=== PATIENT | female | born 1965 | race Caucasian/White ===

== ENCOUNTER 2017-07-15 10:58 | Emergency (ER) | payer OTHER ==
[2017-07-15 11:25] LABS: Absolute Lymphocytes (CBC) 2.2 K/uL (0.7-4.9); Absolute Monocytes 0.6 K/uL (0.1-1.3); Absolute Neutrophil 3.1 K/uL (1.8-8.0); Basophils % 0.7 % (0-1.3); Eosinophils % 1.5 % (0-4.4); Hematocrit 44.2 % (36.0-45.0); Lymphocytes % 36.8 % (15.3-44.8); MCH 32.4 pg (27.0-35.0); MPV 8.8 fL (7.6-11.3); Monocytes % 9.5 % (3.3-12.3)
[2017-07-15 11:29] LABS: Protime INR 0.93
[2017-07-15 11:34] LABS: Potassium 3.7 mEq/L (3.6-5.0)
[2017-07-15] MEDS ORDERED: NA CHLORIDE 0.9% 1,000 ML ONE (12:18)
--- NOTE | 2017-07-15 12:18 | RAD REPORT ---
EXAM DESCRIPTION: Von Single View07/15/2017 11:31 am CLINICAL HISTORY: Chest pain COMPARISON: none FINDINGS: The lungs appear clear of acute infiltrate. The heart is normal size IMPRESSION: No acute abnormalities displayed
[2017-07-15] MEDS ORDERED: ACETAMINOPHEN 325 MG TABLET ONE (12:36)
--- NOTE | 2017-07-15 13:15 | ER ---
Nurse's Notes [facility] Name: Deborah Garcia Age: 52 yrs Sex: Female : 1965 Arrival Date: 07/15/2017 Time: 10:59 Bed 2 Private MD: Diagnosis: Aphasia Presentation: 07/15 11:02 Presenting complaint: Patient states: Woke up this morning at approx 0750 with c/o ss increased R sided weakness and difficulty speaking. 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 Transition of care: patient was not received from another setting of care. 11:02 Method Of Arrival: Ambulatory ss 11:18 Acuity: JULIO 2 ae1 12:08 An acute neurological deficit is present. The charge nurse has been notified. The jl7 patient has been moved to a treatment area. Pre-hospital glucose is not applicable to this patient. Onset of symptoms was July 15, 2017. Care prior to arrival: None. 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/A - Post-menopause jl7 Stroke Activation: Symtpom onset >3 hours and < 6 hours Physician: Stroke Attending; Name: ; Notified At: ; Arrived At: Physician: Chief Stroke Resident; Name: ; Notified At: ; Arrived At: Physician: Stroke Resident; Name: ; Notified At: ; Arrived At: Physician: ED Attending; Name: ; Notified At: ; Arrived At: Physician: ED Resident; Name: ; Notified At: ; Arrived At: Historical: - Allergies: 11:40 No Known Allergies; ae1 - Home Meds: 13:53 divalproex 250 mg oral Tb24 [Active]; Onfi 5 mg oral tab 2 times per day [Active]; jl7 Ritalin 20 mg Oral tab 1 tab 2 times per day [Active]; lisinopril-hydrochlorothiazide 20-12.5 mg oral tab 1 tab once daily [Active]; - PMHx: 11:24 Aphasia; BRAIN TUMOR; Hypertension; R sided deficits; ss 13:53 Colitis; jl7 - PSHx: 11:24 tumor removal; ss - Immunization history:: Adult Immunizations unknown. - Family history:: not pertinent. - Social history:: Smoking status: Patient/guardian denies using tobacco. - Hospitalizations: : No recent hospitalization is reported. Screenin:30 Abuse screen: Denies threats or abuse. Denies injuries from another. Nutritional jl7 screening: No deficits noted. Tuberculosis screening: No symptoms or risk factors identified. The patient has not been NPO before screening. The patient is alert, able to follow commands. The patient exhibits slurred or garbled speech. Provider notified of indication for Speech Therapy consult. The patient is exhibiting difficulty speaking. Provider notified of indication for Speech Therapy consult. The patient does not exhibit difficulty understanding words. The patient is able to swallow own secretions with no drooling or need for suction. Patient tolerated one teaspoon of water. No drooling, immediate coughing, gurgling, or clearing of the throat was noted. The patient tolerated 90mL of water. No drooling, immediate coughing, gurgling, or clearing of the throat was noted. The patient passed the bedside swallow screening. Oral medications may be given as ordered. Contact Physician for further diet orders. Provider notified of bedside swallow screening results: Raúl Howard MD. Fall Risk Secondary diagnosis (15 points) TIA, IV access (20 points). Gait- Impaired (20 pts.). Total Wheeler Fall Scale indicates High Risk Score (45 or more points). Fall prevention measures have been instituted. Side Rails Up X 2 Placed Close to Nursing Station Frequent Obs/Assessments Occuring Family Present and informed to notify staff if the need to leave the bedside As available patient and family educated on Fall Prevention Program and Strategies. Assessment: 11:25 The patient has not been NPO before screening. The patient is alert, and able to follow jl7 commands. The patient exhibits slurred or garbled speech. Provider notified of the indication for Speech Therapy consult. The patient is exhibiting difficulty speaking. Provider notified of the indication for Speech Therapy consult. The patient does not exhibit difficulty understanding words. The patient is able to swallow own secretions with no drooling or need for suction. Patient tolerated one teaspoon of water. No drooling, immediate coughing, gurgling, or clearing of the throat was noted. The patient tolerated 90mL of water. No drooling, immediate coughing, gurgling, or clearing of the throat was noted. The patient passed the bedside swallow screening. Oral medications may be given as ordered. Contact Physician for further diet orders. Provider notified of bedside swallow screening results: Raúl Howard MD. T-PA (Activase) Screening: Contraindications: Patient reports onset of signs and symptoms of stroke greater than 6 hours ago: Yes. 11:25 General: Appears uncomfortable, Behavior is calm, cooperative, appropriate for age. jl7 Pain: Denies pain. Neuro: Level of Consciousness is awake, alert, obeys commands, Oriented to person, place, time, situation, Superintendent Overhead Distribution are equal bilaterally Moves all extremities. Gait is steady, Speech is slurred, with expressive aphasia noted, Facial symmetry appears normal, Pupils are PERRLA, Intact. Cardiovascular: Heart tones S1 S2 present Patient's skin is warm and dry. Respiratory: Airway is patent Respiratory effort is even, unlabored, Respiratory pattern is regular, symmetrical, Breath sounds are clear bilaterally. GI: No signs and/or symptoms were reported involving the gastrointestinal system. : No signs and/or symptoms were reported regarding the genitourinary system. EENT: No signs and/or symptoms were reported regarding the EENT system. Derm: Skin is pink, warm \T\ dry. Musculoskeletal: No signs and/or symptoms reported regarding the musculoskeletal system. 12:10 Reassessment: Pt c/o of a headache, rated 2/10. Provider notified, see MAR for orders. jl7 13:00 Reassessment: Patient states feeling better. Patient states symptoms have improved. jl7 13:14 Reassessment: Per , order a soft diet. Order put in through Immediately and spoke ae1 to Rosana via telephone in dietary to order diet tray as well. 14:00 Reassessment: Patient and/or family updated on plan of care and expected duration. Pain jl7 level reassessed. Patient is alert, oriented x 3, equal unlabored respirations, skin warm/dry/pink. pt sitting in bed eating, remains at bedside. Vital Signs: 11:09 BP 152 / 84; Pulse 88; Resp 22; Temp 97.7(A); Pulse Ox 100% on R/A; ae1 11:41 Weight 70.31 kg (R); Height 5 ft. 4 in. (162.56 cm); ae1 11:45 BP 134 / 74; Pulse 79; Resp 16 S; Pulse Ox 100% on R/A; jl7 12:07 BP 145 / 79; Pulse 75; Resp 16; Pulse Ox 100% on R/A; Pain 0/10; jl7 12:43 BP 139 / 84; Pulse 72; Resp 16 S; Pulse Ox 100% on R/A; jl7 13:00 BP 139 / 84; Pulse 74; Resp 16 S; Pulse Ox 100% on R/A; jl7 13:30 BP 141 / 81; Pulse 72; Resp 16 S; Pulse Ox 100% on R/A; jl7 14:15 BP 135 / 70; Pulse 82; Resp 16 S; Pulse Ox 100% on R/A; jl7 11:41 Body Mass Index 26.61 (70.31 kg, 162.56 cm) ae1 NIH Stroke Scale Scores: 11:25 NIHSS Score: 2 jl7 11:25 NIHSS Score: 2 jl7 ED Course: 10:59 Patient arrived in ED. as 11:04 Raúl Howard MD is Attending Physician. rn 11:[address] via wheelchair. em2 11:10 Inserted saline lock: 20 gauge in right antecubital area, using aseptic technique. ae1 ,using aseptic technique. By Paulino SUTURE GAUGER Blood collected. 11:10 Inserted saline lock: 20 gauge in left antecubital area, using aseptic technique. ae1 ,using aseptic technique. By Kami Estrada RN. 11:18 Triage completed. ae1 11:19 Placed in gown. Bed in low position. Side rails up X2. Adult w/ patient. Cardiac ae1 monitor on. Pulse ox on. NIBP on. Warm blanket given. 11:31 X-ray completed. Portable x-ray completed in exam room. Patient tolerated procedure ml well. 11:36 Natalie Royal RN is Primary Nurse. jl7 11:42 EKG done, by metallographic technician. reviewed by Raúl Howard MD. at1 11:53 Assisted to bedside commode. jl7 12:21 Arm band placed on right wrist. jl7 14:35 No provider procedures requiring assistance completed. Patient transferred, IV remains jl7 in place. intact, No redness/swelling at site. Administered Medications: 12:00 Drug: NS 0.9% 1000 ml Route: IV; Rate: 1000 ml; Site: right antecubital; jl7 13:00 Follow up: Response: No adverse reaction; IV Status: Completed infusion; IV Intake: jl7 1000ml 12:19 Drug: Tylenol 650 mg Route: PO; 7 13:00 Follow up: Response: No adverse reaction; Pain is decreased jl7 14:11 Drug: PlaVIX 75 mg Route: PO; 7 14:38 Follow up: Response: No adverse reaction jl7 Point of Care Testing: Blood Glucose: 11:09 Blood Glucose: 116 mg/dL; ae1 Ranges: Intake: 13:00 IV: 1000ml; Total: 1000ml. jl7 Outcome: 13:14 ER care complete, transfer ordered by rn 14:35 Transferred by ground EMS to [facility], Transfer form completed. jl7 Note: Phone report given to Nurse Kim at [facility] 14:35 Condition: stable 14:35 Discharge instructions given to patient, Instructed on the need for transfer, Demonstrated understanding of instructions. 14:47 Patient left the ED. [facility] NIH Stroke Scale - NIH Stroke Score Date: 07/15/2017 Time: 11:25 Total Score = 2 1a. Level of Consciousness (LOC) - 0(Alert) 1b. Level of Consciousness (LOC) (Year \T\ Age) - 0(Both) 1c. LOC Commands (Open \T\ Closes Eyes/Paid Intern) - 0(Both) 2. Best Gaze (Lateral Gaze Paresis) - 0(Normal) 3. Visual Field Loss - 0(No visual loss) 4. Facial Palsy - 0(Normal) 5a. Left Arm: Motor (10-second hold) - 0(No drift) 5b. Right Arm: Motor (10-second hold) - 0(No drift) 6a. Left Leg: Motor (5-second hold - always test supine) - 0(No drift) 6b. Right Leg: Motor (5-second hold - always test supine) - 0(No drift) 7. Limb Ataxia (finger/nose \T\ heel/reid - test with eyes open) - 0(Absent) 8. Sensory Loss (pinprick arms/legs/face) - 0(Normal) 9. Best Language: Aphasia (description/naming/reading) - 1(Mild to moderate aphasia) 10. Dysarthria (speech clarity - read or repeat words) - 1(Mild to Moderate) 11. Extinction and Inattention (visual/tactile/auditory/spatial/personal) - 0(No abnormality) Initials: [facility] NIH Stroke Scale - NIH Stroke Score Date: 07/15/2017 Time: 11:25 Total Score = 2 1a. Level of Consciousness (LOC) - 0(Alert) 1b. Level of Consciousness (LOC) (Year \T\ Age) - 0(Both) 1c. LOC Commands (Open \T\ Closes Eyes/Paid Intern) - 0(Both) 2. Best Gaze (Lateral Gaze Paresis) - 0(Normal) 3. Visual Field Loss - 0(No visual loss) 4. Facial Palsy - 0(Normal) 5a. Left Arm: Motor (10-second hold) - 0(No drift) 5b. Right Arm: Motor (10-second hold) - 0(No drift) 6a. Left Leg: Motor (5-second hold - always test supine) - 0(No drift) 6b. Right Leg: Motor (5-second hold - always test supine) - 0(No drift) 7. Limb Ataxia (finger/nose \T\ heel/reid - test with eyes open) - 0(Absent) 8. Sensory Loss (pinprick arms/legs/face) - 0(Normal) 9. Best Language: Aphasia (description/naming/reading) - 1(Mild to moderate aphasia) 10. Dysarthria (speech clarity - read or repeat words) - 1(Mild to Moderate) 11. Extinction and Inattention (visual/tactile/auditory/spatial/personal) - 0(No abnormality) Initials: jl7 Signatures: Ebonie Gray, Raúl Ceja MD MD rn Smirch, Shelby, RN RN ss Montes, Enrique Sujey hannah, physical education professor EKG Tat1 Jomar Bobby RN RN ae1 Natalie Royal RN RN jl7
--- NOTE | 2017-07-15 13:15 | EDPHYS ---
Physician Documentation [facility] Name: Deborah Garcia Age: 52 yrs Sex: Female : 1965 Arrival Date: 07/15/2017 Time: 10:59 Bed 2 Private MD: ED Physician Raúl Howard HPI: 07/15 11:39 This 52 yrs old Female presents to ER via Ambulatory with complaints of rn Slurred Speech, Numbness. 11:39 The patient presents to the emergency department with a speech or higher order brain rn function problem, aphasia. Onset: The symptoms/episode began/occurred this morning. Severity of symptoms: At their worst the symptoms were mild in the emergency department the symptoms are unchanged. Current symptoms: dysphasia. The patient has not experienced similar symptoms in the past. Reports slurred speech, last known normal at 0500 today, no weakness, + baseline right sided weakness following tumor removal in s, no trauma. . 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 - Family history:: not pertinent. - Social history:: Smoking status: Patient/guardian denies using tobacco. - Hospitalizations: : No recent hospitalization is reported. ROS: 11:39 Constitutional: Negative for fever, chills, and weight loss, Eyes: Negative for injury, rn pain, redness, and discharge, Neck: Negative for injury, pain, and swelling, Cardiovascular: Negative for chest pain, palpitations, and edema, Respiratory: Negative for shortness of breath, cough, wheezing, and pleuritic chest pain, Abdomen/GI: Negative for abdominal pain, nausea, vomiting, diarrhea, and constipation, Back: Negative for injury and pain, MS/Extremity: Negative for injury and deformity, Neuro: Negative for headache, numbness, tingling, and seizure. Exam: 11:39 Constitutional: This is a well developed, well nourished patient who is awake, alert, rn smiling but appears frustrated Head/Face: Normocephalic, atraumatic. Eyes: Pupils equal round and reactive to light, extra-ocular motions intact. Lids and lashes normal. Conjunctiva and sclera are non-icteric and not injected. Cornea within normal limits. Periorbital areas with no swelling, redness, or edema. Neck: Trachea midline, no thyromegaly or masses palpated, and no cervical lymphadenopathy. Supple, full range of motion without nuchal rigidity, or vertebral point tenderness. No Meningismus. Cardiovascular: Regular rate and rhythm with a normal S1 and S2. No gallops, murmurs, or rubs. Normal PMI, no JVD. No pulse deficits. Respiratory: Lungs have equal breath sounds bilaterally, clear to auscultation and percussion. No rales, rhonchi or wheezes noted. No increased work of breathing, no retractions or nasal flaring. Abdomen/GI: Soft, non-tender, with normal bowel sounds. No distension or tympany. No guarding or rebound. No evidence of tenderness throughout. MS/ Extremity: Pulses equal, no cyanosis. Neurovascular intact. Full, normal range of motion. Equal circumference. Neuro: Awake and alert, GCS 15, oriented to person, place, time, and situation. + slurred and broken speech, normal sensation in all 4 ext, no drift in Upper/lower ext. 11:42 ECG was reviewed by the Attending Physician. rn Vital Signs: 11:09 BP 152 / 84; Pulse 88; Resp 22; Temp 97.7(A); Pulse Ox 100% on R/A; ae1 11:41 Weight 70.31 kg (R); Height 5 ft. 4 in. (162.56 cm); ae1 11:45 BP 134 / 74; Pulse 79; Resp 16 S; Pulse Ox 100% on R/A; jl7 12:07 BP 145 / 79; Pulse 75; Resp 16; Pulse Ox 100% on R/A; Pain 0/10; jl7 12:43 BP 139 / 84; Pulse 72; Resp 16 S; Pulse Ox 100% on R/A; jl7 13:00 BP 139 / 84; Pulse 74; Resp 16 S; Pulse Ox 100% on R/A; jl7 13:30 BP 141 / 81; Pulse 72; Resp 16 S; Pulse Ox 100% on R/A; jl7 14:15 BP 135 / 70; Pulse 82; Resp 16 S; Pulse Ox 100% on R/A; jl7 11:41 Body Mass Index 26.61 (70.31 kg, 162.56 cm) ae1 NIH Stroke Scale Scores: 11:25 NIHSS Score: 2 jl7 11:25 NIHSS Score: 2 jl7 MDM: 11:04 Patient medically screened. rn 11:25 ED course: NIH stroke scale of 2, last known normal at 0500 today, is 6.5 hours in, out rn of window. No TPA recommended given outside of window, and abnormal ct of brain, per radiology, unable to tell if hyperdense lesion due to previous surgery vs new stroke vs calcification.. 13:13 Data reviewed: vital signs, nurses notes, lab test result(s), EKG, radiologic studies, rn CT scan, and as a result, I will admit patient. Counseling: I had a detailed discussion with the patient and/or guardian regarding: the historical points, exam findings, and any diagnostic results supporting the discharge/admit diagnosis, lab results, radiology results, the need to transfer to another facility, for higher level of care, [facility] does not immediately have the required specialist. 13:13 ED course: Symptoms slightly improved. . rn 13:13 ED course: Pt took 2 baby aspirin today already.. rn 07/15 11:05 Order name: Basic Metabolic Panel rn 07/15 11:05 Order name: CBC with Diff rn 07/15 11:05 Order name: Protime (+inr) rn 07/15 11:05 Order name: Ptt, Activated rn 07/15 11:05 Order name: Urine Microscopic Only rn 07/15 11:34 Order name: Basic Metabolic Panel; Complete Time: 11:38 EDMS 07/15 11:05 Order name: CT Stroke Brain w/o Contrast rn 07/15 11:05 Order name: Stroke CXR 1 View rn 07/15 11:38 Order name: CBC with Automated Diff; Complete Time: 11:38 EDMS 07/15 11:38 Order name: Protime (+INR); Complete Time: 11:55 EDMS 07/15 11:38 Order name: PTT, Activated Partial Thromb; Complete Time: 11:55 EDMS 07/15 12:19 Order name: RAD; Complete Time: 12:42 EDMS 07/15 13:19 Order name: CT; Complete Time: 13:34 EDMS 07/15 11:05 Order name: EKG; Complete Time: 11:06 rn 07/15 11:05 Order name: Accucheck; Complete Time: 11: rn 07/15 11:05 Order name: Cardiac monitoring; Complete Time: 11: rn 07/15 11:05 Order name: EKG - Nurse/Tech; Complete Time: 11: rn 07/15 11:05 Order name: IV Saline Lock; Complete Time: : rn 07/15 11:05 Order name: Labs collected and sent; Complete Time: : rn 07/15 11:05 Order name: NPO; Complete Time: : rn 07/15 11:05 Order name: O2 Per Protocol; Complete Time: : rn 07/15 11:05 Order name: O2 Sat Monitoring; Complete Time: : rn 07/15 11:05 Order name: Stroke Swallow Screen; Complete Time: 11:42 rn 07/15 13:13 Order name: Diet Mech. Soft (ground); Complete Time: 13:14 ae1 EC:42 Rate is 82 beats/min. Rhythm is regular. QRS [place] is Normal. MI interval is normal. QRS rn interval is normal. QT interval is normal. No Q waves. T waves are Normal. No ST changes noted. Clinical impression: Normal ECG. Interpreted by me. Administered Medications: 12:00 Drug: NS 0.9% 1000 ml Route: IV; Rate: 1000 ml; Site: right antecubital; jl7 13:00 Follow up: Response: No adverse reaction; IV Status: Completed infusion; IV Intake: jl7 1000ml 12:19 Drug: Tylenol 650 mg Route: PO; jl7 13:00 Follow up: Response: No adverse reaction; Pain is decreased jl7 14:11 Drug: PlaVIX 75 mg Route: PO; jl7 14:38 Follow up: Response: No adverse reaction jl7 Point of Care Testing: Blood Glucose: 11:09 Blood Glucose: 116 mg/dL; ae1 Ranges: Critical Glucose Levels:Adult <50 mg/dl or >400 mg/dl <40 mg/dl or >180 mg/dl Disposition: 07/15/17 13:14 Transfer ordered to [facility]. Diagnosis is Aphasia. - Reason for transfer: Higher level of care. - Accepting physician is Dr. Hudson. - Condition is Stable. - Problem is new. - Symptoms have improved. NIH Stroke Scale - NIH Stroke Score Date: 07/15/2017 Time: :25 Total Score = 2 1a. Level of Consciousness (LOC) - 0(Alert) 1b. Level of Consciousness (LOC) (Year \T\ Age) - 0(Both) 1c. LOC Commands (Open \T\ Closes Eyes/Chemicals Fermentation Operator) - 0(Both) 2. Best Gaze (Lateral Gaze Paresis) - 0(Normal) 3. Visual Field Loss - 0(No visual loss) 4. Facial Palsy - 0(Normal) 5a. Left Arm: Motor (10-second hold) - 0(No drift) 5b. Right Arm: Motor (10-second hold) - 0(No drift) 6a. Left Leg: Motor (5-second hold - always test supine) - 0(No drift) 6b. Right Leg: Motor (5-second hold - always test supine) - 0(No drift) 7. Limb Ataxia (finger/nose \T\ heel/reid - test with eyes open) - 0(Absent) 8. Sensory Loss (pinprick arms/legs/face) - 0(Normal) 9. Best Language: Aphasia (description/naming/reading) - 1(Mild to moderate aphasia) 10. Dysarthria (speech clarity - read or repeat words) - 1(Mild to Moderate) 11. Extinction and Inattention (visual/tactile/auditory/spatial/personal) - 0(No abnormality) Initials: jl7 NIH Stroke Scale - NIH Stroke Score Date: 07/15/2017 Time: 25 Total Score = 2 1a. Level of Consciousness (LOC) - 0(Alert) 1b. Level of Consciousness (LOC) (Year \T\ Age) - 0(Both) 1c. LOC Commands (Open \T\ Closes Eyes/Chemicals Fermentation Operator) - 0(Both) 2. Best Gaze (Lateral Gaze Paresis) - 0(Normal) 3. Visual Field Loss - 0(No visual loss) 4. Facial Palsy - 0(Normal) 5a. Left Arm: Motor (10-second hold) - 0(No drift) 5b. Right Arm: Motor (10-second hold) - 0(No drift) 6a. Left Leg: Motor (5-second hold - always test supine) - 0(No drift) 6b. Right Leg: Motor (5-second hold - always test supine) - 0(No drift) 7. Limb Ataxia (finger/nose \T\ heel/reid - test with eyes open) - 0(Absent) 8. Sensory Loss (pinprick arms/legs/face) - 0(Normal) 9. Best Language: Aphasia (description/naming/reading) - 1(Mild to moderate aphasia) 10. Dysarthria (speech clarity - read or repeat words) - 1(Mild to Moderate) 11. Extinction and Inattention (visual/tactile/auditory/spatial/personal) - 0(No abnormality) Initials: jl7 Signatures: Dispatcher [employer] EDRaúl Bush MD MD rn Smirch, Shelby, RN RN ss Jomar Bobby RN RN ae1 Natlaie Royal RN RN jl7
--- NOTE | 2017-07-15 13:18 | RAD REPORT ---
EXAM DESCRIPTION: CT - Ct Stroke Brain Wo Cont - 07/15/2017 11:11 am CLINICAL HISTORY: Slurred speech, weakness, stroke protocol study Patient has a history of tumor and/or CVA with surgical resection CLINICAL HISTORY: MRI November 2015 TECHNIQUE: Axial 5 millimeter thick images of the head were obtained without IV contrast. All CT scans are performed using dose optimization technique as appropriate and may include automated exposure control or mA/KV adjustment according to patient size. FINDINGS: No intracranial hemorrhage is present. No cortical edema or sulcal effacement. In the late ral left frontal lobe there is an 8 millimeter round hyperdense focus present. Patient has a broader area of encephalomalacia involving much of the left frontal lobe. A left lateral ventricle has enlarg ed in proportion to the encephalomalacia. There are postsurgical changes to the left frontal bone of the skull. An acute cortical based infarction is not identified. It would be possible for nonhemorrha gic CVA changes to occur within this area of encephalomalacia. New the patient has underlying atrophy and mild chronic ischemic change could mask nonhemorrhagic CVA as well. The small round hyperdense focus is not suspected to be cortical hemorrhage, contusion or a hat or de nse metastasis. The 2016 MRI study shows a small hypointense focus on all pulse sequences. This is be lieved to be a correlate and probably represents an unusual postsurgical or post injury mineralizatio n. No extra-axial fluid collections. Rodriguez matter-white matter differentiation is otherwise preserved . Visualized portions of the mastoid air cells, paranasal sinuses, and orbits are unremarkable. Findings were telephoned to Dr. Howard at 11:16 a.m. IMPRESSION: No acute intracranial hemorrhage and no acute intracranial process seen. The patient has postsurgical changes to the left frontal bone and underlying post CVA or postsurgical encephalomalacia. The left frontal lobe changes as well as the mild diffuse atrophy and chronic isch emic change could mask nonhemorrhagic infarction. The small round hyperdense focus in the left frontal lobe at the posterior margin of the encephalomal acia is believed to be mineralization and not hemorrhage or hyperdense metastasis. Followup MR imaging could be obtained as warranted to evaluate for active process.
--- NOTE | 2017-07-15 14:04 | EKG ---
Test Date: 2017-07-15 Test Time: 11:28:23 Research Manager: LORELEI MEASUREMENT RESULTS: Intervals: Rate: 82 SD: 142 QRSD: 68 QT: 350 QTc: 408 [place]: P: 48 SD: 142 QRS: 34 T: 53 INTERPRETIVE STATEMENTS: Normal sinus rhythm Normal ECG Compared to ECG 04/19/2003 15:33:00 No significant changes Electronically Signed On 07-15-17 14:03:43 CDT by Ruslan Lynch
[2017-07-15] MEDS ORDERED: CLOPIDOGREL 75 MG TABLET ONE (14:30)
== END 2017-07-15 14:47 | disposition short-term general hospital (02) ==
LOC: ER 10:58
DX: R47.01 Aphasia (principal); I10 Essential (primary) hypertension; D49.6 Neoplasm of unspecified behavior of brain
CPT/HCPCS: 36415; 70450; 71045; 80048; 82962; 85025; 85610; 85730; 93005; 96360; 99285; J7030

== ENCOUNTER 2020-01-03 11:51 | Emergency (ER) | payer OTHER ==
--- OUTSIDE RECORDS SUMMARY | 2020-01-03 11:53 | XMS REPORT | Summary of Care ---
:1965 Author Organization [facility] - [facility] Address [address] [place] [address] Care Team Providers Name Role Phone Pcp, Patient Does Not Have A Primary Care Provider +[id number] 0-0000 Encounter Details Date Type Department Care Team Description 10/05/2019 Orders Only [facility] Doctor Unassigned, No 301 [facility] [place] [address] [address] [place] [address] Allergies No Known Allergiesdocumented as of this encounter (statuses as of 10/18/2019) Medications Medication Sig Dispensed Refills Start Date End Date Status ibuprofen (MOTRIN) 400 Take 1 tablet 21 tablet 0 01/11/2016 Active mg tablet by mouth 3 (three) times daily with meals. cyclobenzaprine Take 1 tablet 15 tablet 0 01/11/2016 Active (FLEXERIL) 5 mg tablet by mouth 3 (three) times daily. ciprofloxacin HCl Take 1 tablet 14 tablet 0 01/11/2016 Active (CIPRO) 250 mg tablet by mouth 2 (two) times daily. aspirin 81 mg chewable Take 81 mg by 0 Active tablet mouth. lisinopril 20 mg tablet 0 10/15/2017 Active metoprolol tartrate 25 Take 25 mg by 0 Active mg tablet mouth. multivitamin tablet Take 1 tablet 0 Active by mouth. cloBAZam (ONFI) 10 mg Take 1 tablet 180 tablet 3 06/28/2019 Active TabIndications: Seizure, by mouth 2 Broca's aphasia (two) times daily. divalproex ER 500 mg 24 Take 1 tablet 60 tablet 6 07/19/2019 Active hr tabletIndications: by mouth every Seizure, Broca's aphasia 12 (twelve) hours. 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 documented as of this encounter Last Filed Vital Signs Not on filedocumented in this encounter Plan of Treatment Date Type Specialty Care Team Description 12/27/2019 Office Visit Neurology Sergey Lentz MD [address] [place] [address]. [place] [phone] Health Maintenance Due Date Last Done Comments HEPATITIS C (HCV) SCREEN 1965 DTaP,Tdap,and Td Vaccines (1 - 01/23/1976 Tdap) PAP SMEAR 1986 Breast Cancer Screening 2005 (MAMMOGRAM) COLONOSCOPY 2015 Zoster Recombinant Vaccine 2015 (SHINGRIX) (1 of 2) INFLUENZA VACCINE (Season Ended) 2019 Depression Screening 06/27/2020 06/28/2019 PNEUMOCOCCAL 0-64 YEARS COMBINED Aged Out No longer eligible based on SERIES patient's age to complete this topic documented as of this encounter Procedures Procedure Name Priority Date/Time Associated Diagnosis Comme nts CONSENT FOR CONTRACEPTION Routine 10/05/2019 12:01 AM CDT documented in this encounter Results Not on filedocumented in this encounter Insurance Payer Benefit Plan / Subscriber ID Effective Dates Phone Addre ss Type Group MEDICARE MEDICARE PART A xxxxxxxxxxx 1995-[place] [phone] [address] Medicare & B nt 2 [id number] FR[place] [address] [employer] [id number] 2015-[place] PPO INS t documented as of this encounter
--- OUTSIDE RECORDS SUMMARY | 2020-01-03 11:53 | XMS REPORT | Summary of Care ---
:1965 Author Organization [facility] - [facility] Address [address] [place] [address] Care Team Providers Name Role Phone Pcp, Patient Does Not Have A Primary Care Provider +[phone] 0-0000 Encounter Details Date Type Department Care Team Description 11/16/2019 Orders Only [facility] Doctor Unassigned, No 301 [facility] Name [place] [phone] [place] [address] Allergies No Known Allergiesdocumented as of this encounter (statuses as of 11/18/2019) Medications Medication Sig Dispensed Refills Start Date [...] as of this encounter (statuses as of 11/18/2019) Active Problems No known active problemsdocumented as of this encounter (statuses as of 11/18/2019) Social History Tobacco Use Types Packs/Day Years [...] 12/27/2019 Office Visit Neurology Sergey Lentz MD [address] [place] [address]. [place] [phone] Health Maintenance Due Date Last Done Comments HEPATITIS C (HCV) SCREEN 1965 DTaP,Tdap,and Td Vaccines (1 - 01/23/1976 Tdap) PAP SMEAR 1986 Breast Cancer Screening 2005 (MAMMOGRAM) COLONOSCOPY 2015 Zoster Recombinant Vaccine 2015 (SHINGRIX) (1 of 2) INFLUENZA VACCINE (#1) 2019 Depression Screening 06/27/2020 06/28/2019 PNEUMOCOCCAL 0-64 YEARS COMBINED Aged Out No longer eligible based on SERIES patient's age to complete this topic documented as of this encounter Procedures Procedure Name Priority Date/Time Associated Diagnosis Comme nts CONTROLLED SUBSTANCE Routine 11/16/2019 12:01 AM PRESCRIPTION CDT documented in this encounter Results Not on filedocumented in this encounter Insurance Payer Benefit Plan / Subscriber ID Effective Dates Phone Addre ss Type Group MEDICARE MEDICARE PART A xxxxxxxxxxx 1995-[place] [phone] [address] Medicare & B nt 2 [id number] [place] [phone] [employer] [id number] 2015-[place] PPO INS t documented as of this encounter
--- OUTSIDE RECORDS SUMMARY | 2020-01-03 11:53 | XMS REPORT | Continuity of Care Document ---
:1965 Author Organization [facility] t Address [address] [place] [address] Care Team Providers Name Role Phone John Canada MD Primary Care Physician Doctor Unassigned, Name Attending Clinician Unavailable Tor LUTZ, Gene Attending Clinician JORI KC Attending Clinician Unavailable JORI KC Admitting Clinician Unavailable Problems Condition Condition Condition Status Onset Resolution Last Treating Co mments Source Name Details Category Date Date Treatment Clinician Date Seizure Seizure Disease [facility] 00 [place] Acute Acute Disease Active [facility] cystitis [facility]stit[facility] 00 [place] Weakness Weakness Disease [facility] 00 [place] CVA CVA Disease Active [facility] (cerebral (cerebral [facility]-20 [facility] - vascular vascular 00:00: Medica l accident) accident) 00 [facility] Aphasia Aphasia Disease Active [facility] 00 [place] Physical Physical Disease Active [facility] deconditio deconditio 3-20 Samia kes - daksha daksha 00:00: Medical 00 [place] Dysarthria Dysarthria Disease Active [facility] Medical 00 [place] Hypertensi Hypertensi Disease Active [facility] on 3-[facility] - 00:[facility]: Medical 00 [place] Allergies, Adverse Reactions, Alerts This patient has no known allergies or adverse reactions. Social History Social Habit Start Date Stop Date Quantity Comments Source History of tobacco Current smoker [facility] Sex Assigned At [facility] Smoking Status Start Date Stop Date Source Former smoker 2017-07-15 00:00:00 2017-07-15 00:00:00 [facility] Medications Ordered Filled Start Stop Current Ordering Indication Dosage Frequency Signature Comments Components Source Medication Medication Date Date Medication? Clinician (SIG) Name Name multivitami Yes 1{tbl} QD Take [address] n per 3-20 tablet by Song - tablet 16:54: mouth Medical 59 daily. [place] GLUCOSAM/CH Yes 2{tbl} QD Take [address] OND/HYALU/C 3-20 tablets by Samia alexander - F BORATE 16:54: mouth Medical (MOVE FREE 59 daily. [place] JOINT HEALTH ORAL) DOCOSAHEXAN Yes 1{capsu QD Take [address] OIC 3-20 le} capsule by Song ACID/EPA 16:54: mouth Medical (FISH OIL 59 daily. [place] ORAL) Missing or Yes 1{tbl} QD [address] Non-Formula 3-20 daily. Song - ry 16:54: Medical Medication 59 Center divalproex Yes 250mg Take [address] (DEPAKOTE) 3-20 mg by Song - 250 MG 24 16:54: mouth 2 Medic al hr tablet 58 (two) Center times daily with breakfast and dinner. CLOBAZAM 2018-0 Yes 5mg Q.5D Take [address] (ONFI ORAL) 3-20 by mouth 2 Samia kes - 16:54: (two) Medical 58 times Center daily. methylpheni 2018-0 Yes 20mg Take [address] date HCl 3-20 by mouth 2 [facility] - (RITALIN) 16:54: (two) Medical 20 MG 58 times Center tablet daily with breakfast and lunch. lisinopril- 2017-0 Yes 1{tbl} Take [address] hydroCHLORO 3-20 tablet by Malina es - thiazide 16:54: mouth Medical (PRINZIDE,Z 58 daily with Ce nter ESTORETIC) breakfast. 20-12.5 mg per tablet metoprolol 2018-0 Yes 25mg Q.5D Take [address] (LOPRESSOR) 3-20 by mouth 2 Samia kes - 25 MG 16:54: (two) Medical tablet 58 times Center daily. aspirin 81 2018-0 Yes 81mg Q.5D Take [address] MG chewable 3-20 by mouth 2 Samia kes - tablet 16:54: (two) Medical 58 times Center daily. Procedures This patient has no known procedures. Encounters Start End Encounter Admission Attending Care Care Encounter Source Date/Time Date/Time Type Type Clinicians Facility Department ID 2018-08-27 Inpatient [facility] [address] [facility] 08:45:00 2019-12-27 2019-12-27 Orders Doctor SIDNEY [id number] 00:00:00 00:00:00 Only Unassigned, REAL [id number] [place] [facility] [id number] 2019-11-30 2019-11-[address] [facility] [id number] 14:14:45 14:49:08 Visit Sergey Walker [id number] [place] [id number] [place] [id number] [facility] 092 Building 2018-12-30 2018-12-30 Outpatient [facility] [address] [facility] 15:06:00 15:06:00 Results Test Description Test Time Test Comments Results Result Comments Source URINE CULTURE 2017-07-21 10:39:00 Test Item Value Reference Range Interpretation Comme nts CULTURE (BEAKER) (test code = ESCHERICHIA COLI A >100,000 col/mL Escherichia 1095) coli Amikacin (test code = 1) S Ampicillin + Sulbactam (test R code = 6) Aztreonam (test code = 32) S Cefepime (test code = 51) S Cefoxitin (test code = 68) S Ceftazidime (test code = 27) S Ceftriaxone (test code = 52) S Ertapenem (test code = 38) S Gentamicin (test code = 18) S Levofloxacin (test code = 22) S Meropenem (test code = 34) S Nitrofurantoin (test code = 23) S Piperacillin + Tazobactam (test S code = 29) Tetracycline (test code = 2) R Tobramycin (test code = 25) S Trimethoprim + Sulfamethoxazole S (test code = 47) CULTURE (BEAKER) (test code = ENTEROCOCCUS SPECIES A >100,000 col/mL Enterococcus 1095) species Ampicillin (test code = 26) S Linezolid (test code = 40) S Nitrofurantoin (test code = 23) S Tetracycline (test code = 2) R Vancomycin (test code = 13) S >100,000 col/mL skin floraURINALYSIS W/ [id number] 09:01:00 Test Item Value Reference Range Interpretation Comments COLOR (BEAKER) (test code = Light Yellow 470) CLARITY (BEAKER) (test code = Hazy 469) SPECIFIC GRAVITY UA (BEAKER) 1.011 1.001-1.035 (test code = 468) PH UA (BEAKER) (test code = 7.0 5.0-8.0 467) PROTEIN UA (BEAKER) (test code Negative Negative = 464) GLUCOSE UA (BEAKER) (test code Negative Negative = 365) KETONES UA (BEAKER) (test code Negative Negative = 371) BILIRUBIN UA (BEAKER) (test Negative Negative code = 462) BLOOD UA (BEAKER) (test code = Negative Negative 461) NITRITE UA (BEAKER) (test code Negative Negative = 465) LEUKOCYTE ESTERASE UA (BEAKER) Trace Negative A (test code = 466) UROBILINOGEN UA (BEAKER) (test 0.2 mg/dL 0.2-1.0 code = 463) RBC UA (BEAKER) (test code = 0 /HPF 519) WBC UA (BEAKER) (test code = 10 /HPF 520) BACTERIA (BEAKER) (test code = Few 517) MUCUS (BEAKER) (test code = Rare 1574) SOURCE(BEAKER) (test code = Urine, Voided 1785) URINE [id number] 05:37:00 Test Item Value Reference Range Interpretation Comments CULTURE (BEAKER) (test code = See comment 1095) <10,000 col/mL Gram Negative Rods>100,000 col/mL skin floraRAD, CHEST, 1 VIEW, NON [id number] 22:36:00Reason for exam:->Evaluate for infectionShould this be performed at the bedside?->YesFINAL REPORT INDICATION: Evaluate for infection COMPARISON: None TECHNIQUE: Si ngle frontal view of the chest. FINDINGS: Lungs and pleura: Clear lungs. No effusion.Heart and mediastinum: Normal heart size. Unremarkable mediastinal contours.Osseous structures: No acute abnormality.Other: None. IMPRESSION: No acute intrathoracic abnormality. Signed: JR Rowland Robert MDReport Verified Date/Time: 07/16/2017 22:36:35 Reading Location: [address] Body Reading Room MR, MRA, BRAIN, WITHOUT [id number] 21:33:00Reason for exam:->StrokeFINAL REPORT MRA head and neck Comparison: None Reason for exam: StrokeDiscussion: 2 D and 3-D rslc-ay-[id number] MRA of the head and neck was provided with maximal intensity p rojection 3-D reconstructions of the cervical and intracranial arterial vasculatures. NASCET criteria are utilized when considering stenosis. Normal flow cervical carotid systems and cervical segment vertebral arteries with no stenosis by NASCET criteria. Normal flow intracranial internal carotid arteries and in the carotid terminus branches proximally. Normal vertebrobasilar and proximal posterior cerebral artery flow. Impressions: Negative MRA neck and head. Signed: Sidney Hastings Verified Date/Time: 07/16/2017 21:33:30 MR, MRA, NECK, WITHOUT IV [id number] 21:33:00Reason for exam:->StrokeFINAL REPORT MRA head and neck Comparison: None Reason for exam: StrokeDiscussion: 2 D and 3-D xgro-vc-iqbfhj MRA of the head and neck was provided with maximal intensity projection 3-D reconstructions of the cervical and intracranial arterial vasculatures. NASCET criteria are utilized when considering stenosis. Normal flow cervical carotid systems and cervical segment vertebral arteries with no stenosis by NASCET criteria. Normal flow intracranial internal carotid arteries and in the carotid terminus branches proximally. Normal vertebrobasilar and proximal posterior cerebral artery flow. Impressions: Negative MRA neck and head. 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 Left frontal craniotomy ila nges are noted. There is a large left-sided anterior and high frontal surgical cavity with surrounding gliosis and regional parenchymal atrophy. There are speckled foci of enhancement along the [place] posterior aspect of the operated region. An additional presumed hemosiderin focus measuring appro ximately 1 cm with some internal enhancement is seen along the mid aspect of the left-sided precentral gyrus. 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 There is no dominant masslike lesion. The current speckled enhancement is nonspecific and may be posttreatment in nature. No acute hematoma, hydrocephalus, midline shift, extra-axial collection. No other visible mass. No ischemic abnormal diffusion restriction. Flow-voids are seen in the basilar and internal carotid arteries as well as in the large posterior dural sinuses. The pineal, sella, and craniocervical junction regions are unremarkable. The visualized orbital contents, paranasal sinuses, skullbase and surrounding soft tissues are unremarkable. 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 Without comparison imaging, this will be a baseline to which future imaging can be compared. Recommend serial MRI follow-up to evaluate stability. No specific evidence of acute abnormality. Signed: Sidney Hastings Verified Date/Time: 07/16/2017 21:23:01 URINALYSIS W/ [id number] 19:13:00 Test Item Value Reference Range Interpretation Comments COLOR (BEAKER) (test code = Light Yellow 470) CLARITY (BEAKER) (test code = Clear 469) SPECIFIC GRAVITY UA (BEAKER) 1.011 1.001-1.035 (test code = 468) PH UA (BEAKER) (test code = 7.0 5.0-8.0 467) PROTEIN UA (BEAKER) (test code Negative Negative = 464) GLUCOSE UA (BEAKER) (test code Negative Negative = 365) KETONES UA (BEAKER) (test code Negative Negative = 371) BILIRUBIN UA (BEAKER) (test Negative Negative code = 462) BLOOD UA (BEAKER) (test code = Negative Negative 461) NITRITE UA (BEAKER) (test code Negative Negative = 465) LEUKOCYTE ESTERASE UA (BEAKER) Small Negative A (test code = 466) UROBILINOGEN UA (BEAKER) (test 0.2 mg/dL 0.2-1.0 code = 463) RBC UA (BEAKER) (test code = 1 /HPF 519) WBC UA (BEAKER) (test code = 17 /HPF 520) MUCUS (BEAKER) (test code = Rare 1574) SQUAMOUS EPITHELIAL (BEAKER) < /HPF (test code = 516) SOURCE(BEAKER) (test code = Urine, Voided 1105) HEMOGLOBIN [id number] 14:29:00 Test Item Value Reference Range Interpretation Comments HEMOGLOBIN A1C (BEAKER) (test code = 5.4 % 4.3-6.1 368) VALPROIC ACID LEVEL, [id number] 12:47:00 Test Item Value Reference Range Interpretation Comments VALPROIC ACID TOTAL (BEAKER) (test 71 ug/mL 50-100 code = 924) Therapeutic range for some clinical conditions may be >100 ug/mLLIPID PANEL 2017-07-16 06:17:00 Test Item Value Reference Range Interpretation Comments TRIGLYCERIDES (BEAKER) (test code = 95 mg/dL 540) CHOLESTEROL (BEAKER) (test code = 169 mg/dL 631) HDL CHOLESTEROL (BEAKER) (test code 52 mg/dL = 976) LDL CHOLESTEROL CALCULATED (BEAKER) 98 mg/dL (test code = 633) Triglyceride Reference Range: Low Risk <150 Borderline 150-199 High Risk 200-499 Very High Risk >=500Cholesterol Reference Range: Low Risk <200 Borderline 200-239 High Risk >240HDL Cholesterol Reference Range: Low Risk >=60 High Risk <40LDL Cholesterol Reference Range: Optimal <100 Near Optimal 100-129 Borderline 130-159 High 160-189 Very High >=190 FastingBASIC METABOLIC [id number] 02:44:00 Test Item Value Reference Range Interpretation Comments SODIUM (BEAKER) 142 meq/L 136-145 (test code = 381) POTASSIUM (BEAKER) 3.9 meq/L 3.5-5.1 (test code = 379) CHLORIDE (BEAKER) 108 meq/L 98-107 H (test code = 382) CO2 (BEAKER) (test 23 meq/L 22-29 code = 355) BLOOD UREA NITROGEN 20 mg/dL 7-21 (BEAKER) (test code = 354) CREATININE (BEAKER) 0.73 mg/dL 0.57-1.25 (test code = 358) GLUCOSE RANDOM 118 mg/dL 70-105 H (BEAKER) (test code = 652) CALCIUM (BEAKER) 9.5 mg/dL 8.4-10.2 (test code = 697) EGFR (BEAKER) (test 84 mL/min/1.73 ESTIMA RANDY GFR IS code = 1092) sq m NOT ACCURATE CREATININE CLEARANCE IN PREDICTING GLOMERULAR FILTRATION RATE . ESTIMATED GFR I S NOT APPLICABLE FOR DIALYSIS PATIEN TS. CBC W/PLT COUNT & AUTO [id number] 02:30:00 Test Item Value Reference Range Interpretation Comments WHITE BLOOD CELL COUNT (BEAKER) 7.6 K/ L 3.5-10.5 (test code = 775) RED BLOOD CELL COUNT (BEAKER) 4.33 M/ L 3.93-5.22 (test code = 761) HEMOGLOBIN (BEAKER) (test code = 13.9 GM/DL 11.2-15.7 410) HEMATOCRIT (BEAKER) (test code = 40.8 % 34.1-44.9 411) MEAN CORPUSCULAR VOLUME (BEAKER) 94.2 fL 79.4-94.8 (test code = 753) MEAN CORPUSCULAR HEMOGLOBIN 32.1 pg 25.6-32.2 (BEAKER) (test code = 751) MEAN CORPUSCULAR HEMOGLOBIN CONC 34.1 GM/DL 32.2-35.5 (BEAKER) (test code = 752) RED CELL DISTRIBUTION WIDTH 12.0 % 11.7-14.4 (BEAKER) (test code = 412) PLATELET COUNT (BEAKER) (test 205 K/CU MM 150-450 code = 756) MEAN PLATELET VOLUME (BEAKER) 10.9 fL 9.4-12.3 (test code = 754) NUCLEATED RED BLOOD CELLS 0 /100 WBC 0-0 (BEAKER) (test code = 413) NEUTROPHILS RELATIVE PERCENT 51 % (BEAKER) (test code = 429) LYMPHOCYTES RELATIVE PERCENT 38 % (BEAKER) (test code = 430) MONOCYTES RELATIVE PERCENT 9 % (BEAKER) (test code = 431) EOSINOPHILS RELATIVE PERCENT 2 % (BEAKER) (test code = 432) BASOPHILS RELATIVE PERCENT 0 % (BEAKER) (test code = 437) NEUTROPHILS ABSOLUTE COUNT 3.84 K/ L 1.56-6.13 (BEAKER) (test code = 670) LYMPHOCYTES ABSOLUTE COUNT 2.91 K/ L 1.18-3.74 (BEAKER) (test code = 414) MONOCYTES ABSOLUTE COUNT (BEAKER) 0.65 K/ L 0.24-0.36 H (test code = 415) EOSINOPHILS ABSOLUTE COUNT 0.14 K/ L 0.04-0.36 (BEAKER) (test code = 416) BASOPHILS ABSOLUTE COUNT (BEAKER) 0.03 K/ L 0.01-0.08 (test code = 417) IMMATURE GRANULOCYTES-RELATIVE 0 % 0-1 PERCENT (BEAKER) (test code = 2801) SEDIMENTATION [id number] 22:54:00 Test Item Value Reference Range Interpretation Comments SEDIMENTATION RATE, ERYTHROCYTE 9 mm/HR 0-30 (BEAKER) (test code = 766) LIPID [id number] 21:50:00 Test Item Value Reference Range Interpretation Comments TRIGLYCERIDES (BEAKER) (test code = 130 mg/dL 540) CHOLESTEROL (BEAKER) (test code = 176 mg/dL 631) HDL CHOLESTEROL (BEAKER) (test code 53 mg/dL = 976) LDL CHOLESTEROL CALCULATED (BEAKER) 97 mg/dL (test code = 633) Triglyceride Reference Range: Low Risk <150 Borderline 150-199 High Risk 200-499 Very High Risk >=500Cholesterol Reference Range: Low Risk <200 Borderline 200-239 High Risk >240HDL Cholesterol Reference Range: Low Risk >=60 High Risk <40LDL Cholesterol Reference Range: Optimal <100 Near Optimal 100-129 Borderline 130-159 High 160-189 Very High >=190VITAMIN B12 AND [id number] 20:18:00 Test Item Value Reference Range Interpretation Comments VITAMIN B12 (payworks) (test code = 580 pg/mL [id number] 934) FOLATE (payworks) (test code = 362) 11.5 ng/mL >=7.0 TSH/FREE T4 IF [id number] 20:17:00 Test Item Value Reference Range Interpretation Comments THYROID STIMULATING HORMONE 1.88 uIU/mL 0.35-4.94 (payworks) (test code = 772)
--- OUTSIDE RECORDS SUMMARY | 2020-01-03 11:53 | XMS REPORT | Summary of Care ---
:1965 Author Organization [facility] - [facility] Address [address] [place] [address] Care Team Providers Name Role Phone Pcp, Patient Does Not Have A Primary Care Provider +1-000-00 0-0000 Encounter Details Date Type Department Care Team Description 08/13/2019 Orders Only [facility] Doctor Unassigned, No 301 [facility] [place] [address] [address] [place] [address] Allergies No Known Allergiesdocumented as of this [...] every Seizure, Broca's aphasia 12 (twelve) hours. documented as of this encounter (statuses as [...] 12/27/2019 Office Visit Neurology Sergey Lentz MD [address] [place] [address] [phone] Health Maintenance Due Date Last Done [...] Name Priority Date/Time Associated Diagnosis Comme nts MEDICATION CORRESPONDENCE Routine 08/13/2019 12:01 AM CDT documented in this encounter Results Not on filedocumented in this encounter Insurance Payer Benefit Plan / Subscriber ID Effective Dates Phone Addre ss Type Group MEDICARE MEDICARE PART A xxxxxxxxxxx 1995-[place] [phone] [address] Medicare & B nt 2 [id number] [place] [id number] [employer] [id number] 2015-[place] PPO INS t documented as of this encounter
--- OUTSIDE RECORDS SUMMARY | 2020-01-03 11:53 | XMS REPORT | Clinical Summary ---
:1965 Author Organization [facility] Address [address] [place] [address] Care Team Providers Name Role Phone John Canada MD Primary Care Provider Allergies No Known Allergies Medications Medication Sig Dispensed Refills Start Date End Date Status divalproex (DEPAKOTE) Take 250 mg by 0 Active 250 MG 24 hr tablet mouth 2 (two) times daily with breakfast and dinner. CLOBAZAM (ONFI ORAL) Take 5 mg by 0 Active mouth 2 (two) times daily. methylphenidate HCl Take 20 mg by 0 Active (RITALIN) 20 MG tablet mouth 2 (two) times daily with breakfast and lunch. lisinopril-hydroCHLOROt Take 1 tablet by 0 Active hiazide mouth daily with (PRINZIDE,ZESTORETIC) breakfast. 20-12.5 mg per tablet metoprolol (LOPRESSOR) Take 25 mg by 0 Active 25 MG tablet mouth 2 (two) times daily. aspirin 81 MG chewable Take 81 mg by 0 Active tablet mouth 2 (two) times daily. multivitamin per tablet Take 1 tablet by 0 Active mouth daily. GLUCOSAM/CHOND/HYALU/CF Take 2 tablets by 0 Active BORATE (MOVE FREE JOINT mouth daily. HEALTH ORAL) DOCOSAHEXANOIC ACID/EPA Take 1 capsule by 0 Active (FISH OIL ORAL) mouth daily. Missing or 1 tablet daily. 0 Act tomy Non-Formulary MedicationIndications: Calcium tablet Active Problems Problem Noted Date Seizure 07/21/2017 Acute cystitis 07/21/2017 Weakness 07/16/2017 CVA (cerebral vascular accident) 07/15/2017 Aphasia 07/15/2017 Physical deconditioning 07/15/2017 Dysarthria 07/15/2017 Hypertension 07/15/2017 Social History Tobacco Use Types Packs/Day Years Used Date Former Smoker Quit: 1991 Smokeless Tobacco: Never Used Alcohol Use Drinks/Week oz/Week Comments No Sex Assigned at Date Recorded Not on file Job Start Date Occupation Industry Not on file Not on file Not on file Travel History Travel Start Travel End No recent travel history available. Last Filed Vital Signs Not on file Plan of Treatment Not on file Results Not on fileafter 01/02/2019 Insurance Payer Benefit Plan / Group Subscriber ID Type Phone A ddress MEDICARE MEDICARE A B xxxxxxxxxx Medicare MCR GENERIC MEDICARE xxxxxxxxxxx Medigap SUPPLEMENT/INDIVIDUAL SUPPLEMENT Advance Directives For more information, please contact:[address] [phone] Code Status Date Activated Date Inactivated Comments Full Code 07/15/2017 7:24 PM 07/17/2017 1:49 PM This code status was determined by: Patient
--- OUTSIDE RECORDS SUMMARY | 2020-01-03 11:53 | XMS REPORT | Summary of Care ---
:1965 Author Organization [facility] Address [address] [place] [address] Care Team Providers Name Role Phone Pcp, Patient Does Not Have A Primary Care Provider +1-000-00 0-0000 Reason for Visit Reason Comments Rx Concern/Question Encounter Details Date Type Department Care Team Description 11/24/[address] [facility] Sergey Lentz, Rx Con cern/Question Neurology-Denise LUTZ [address] [place] [address], [address] [place] [address]. [address] [place] [phone] Allergies No Known Allergiesdocumented as of this encounter (statuses as of 11/26/2019) Medications Medication Sig Dispensed Refills Start Date [...] Take 1 tablet 0 Active by mouth. divalproex ER 500 mg 24 Take 1 tablet 60 tablet 6 07/19/2019 Active hr tabletIndications: by mouth every Seizure, Broca's aphasia 12 (twelve) hours. methylphenidate HCl TAKE 1 TABLET 90 tablet 0 10/04/2019 Active (RITALIN) 20 mg BY MOUTH THREE tabletIndications: TIMES DAILY Dementia due to medical condition without behavioral disturbance cloBAZam (ONFI) 10 mg Take 1 tablet 180 tablet 3 11/19/2019 Active TabIndications: Seizure, by mouth 2 Broca's aphasia (two) times daily. documented as of this encounter (statuses as of 11/26/2019) Active Problems No known active problemsdocumented as of this encounter (statuses as of 11/26/2019) Social History Tobacco Use Types Packs/Day Years [...] 12/27/2019 Office Visit Neurology Sergey Lentz MD [address] [place] [address]. [place] [phone] Health Maintenance Due Date Last Done Comments HEPATITIS C (HCV) SCREEN 1965 DTaP,Tdap,and Td Vaccines ( - 01/23/1976 Tdap) PAP SMEAR 1986 Breast Cancer Screening 2005 (MAMMOGRAM) COLONOSCOPY 2015 Zoster Recombinant Vaccine 2015 (SHINGRIX) (1 of 2) INFLUENZA VACCINE (#1) 2019 Depression Screening 06/27/2020 06/28/2019 PNEUMOCOCCAL 0-64 YEARS COMBINED Aged Out No longer eligible based on SERIES patient's age to complete this topic documented as of this encounter Results Not on filedocumented in this encounter Insurance Payer Benefit Plan / Subscriber ID Effective Dates Phone Addre ss Type Group MEDICARE MEDICARE PART A xxxxxxxxxxx 1995-Santino [phone] [address] Medicare & B 2 [id number] [place] [id number] [employer] [id number] 2015-[place] [employer] t documented as of this encounter
--- OUTSIDE RECORDS SUMMARY | 2020-01-03 11:54 | XMS REPORT | Summary of Care ---
:1965 Author Organization [facility] Address [address] [place] [address] Care Team Providers Name Role Phone Pcp, Patient Does Not Have A Primary Care Provider +1-000-00 0-0000 Reason for Referral (Routine) Status Reason Specialty Diagnoses / Referred By Referred To Procedures Contact Contact New Request Speech-Language Diagnoses Broca's aphasia Sergey Lentz Pathologist Procedures CONSULT/REFERRAL FILEMON Mendoza MD [address] [place] [phone] Reason for Visit Reason Comments Orders Encounter Details Date Type Department Care Team Description 11/30/2019 Telephone [facility] Sergey Lentz MD Orders Neurology-[address] [phone] [address] [place] [address] [phone] Allergies No Known Allergiesdocumented as of this encounter (statuses as of 12/06/2019) Medications Medication Sig Dispensed Refills Start Date [...] mouth 2 Broca's aphasia (two) times daily. gabapentin 100 mg Take 1 capsule 90 capsule 2 12/03/2019 Active capsuleIndications: New by mouth 3 daily persistent (three) times headache daily. documented as of this encounter (statuses as of 12/06/2019) Active Problems No known active problemsdocumented as of this encounter (statuses as of 12/06/2019) Social History Tobacco Use Types Packs/Day Years Used Date Never Smoker Smokeless Tobacco: Never Used Alcohol Use Drinks/Week oz/Week Comments No Sex Assigned at Date Recorded Not on file documented as of this encounter Last Filed Vital Signs Not on filedocumented in this encounter Miscellaneous Notes Telephone Encounter - Hilda Powers LVN - 12/06/2019 8:27 AM CDTSpeech referral was placed per Dr. Lentz. Attempted to contact patient two times. Phone would ringa few times then beep busy. elephone Encounter - Sergey Lentz MD - 12/03/2019 12:48 PM CDTI don't think I did put in that referral, but we had talked about it. This would not be through homehealth but would have to be outpatient, not sure if we can do that through [facility] or not. 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 elephone Encounter - Hilda Powers LVN - 12/03/2019 11:54 AM CDTDr. Lentz, Patient is calling about ST. Did you want to put a referral in for ST? Please review and advise. elephone Encounter - Nicolas Mccrary - 11/30/2019 3:03 PM Alban Garcia is a 54 year old female Patients is requesting call back regarding orders for speech therapy and if he needs a hard copy documented in this encounter Plan of Treatment Health Maintenance Due Date Last Done Comments HEPATITIS C (HCV) SCREEN 1965 DTaP,Tdap,and Td Vaccines (1 - 01/23/1984 Tdap) PAP SMEAR 1986 Breast Cancer Screening 2005 (MAMMOGRAM) COLON CANCER SCREENING ANNUAL 2015 FIT/FOBT COLON CANCER SCREENING FIT DNA 2015 EVERY 3 YEARS COLON CANCER SCREENING 2015 SIGMOIDOSCOPY EVERY 5 YEARS COLONOSCOPY 2015 Colorectal Cancer Screening 2015 Zoster Recombinant Vaccine 2015 (SHINGRIX) (1 of 2) INFLUENZA VACCINE (#1) 2019 Depression Screening 06/27/2020 06/28/2019 PNEUMOCOCCAL 0-64 YEARS COMBINED Aged Out No longer eligible based on SERIES patient's age to complete this topic documented as of this encounter Results Not on filedocumented in this encounter Visit Diagnoses Diagnosis Broca's aphasia - Primary Aphasia documented in this encounter Insurance Payer Benefit Plan / Subscriber ID Effective Dates Phone Addre ss Type Group MEDICARE MEDICARE PART A [id number] 1995-S[place] [phone] [address] Medicare & B nt 2 [id number] [place] [id number] [employer] [id number] 2015-[place] PPO INS t documented as of this encounter
--- OUTSIDE RECORDS SUMMARY | 2020-01-03 11:54 | XMS REPORT | Summary of Care ---
:1965 Author Organization [facility] Address [address] [place] [address] Care Team Providers Name Role Phone Pcp, Patient Does Not Have A Primary Care Provider +1-000-00 0-0000 Encounter Details Date Type Department Care Team Description 12/27/2019 Orders Only [facility] Doctor Unassigned, No [address] [facility] [place] [address] [address] [facility] [place] [phone] Allergies No Known Allergiesdocumented as of this encounter (statuses as of 12/29/2019) Medications Medication Sig Dispensed Refills Start Date [...] as of this encounter (statuses as of 12/29/2019) Active Problems No known active problemsdocumented as of this encounter (statuses as of 12/29/2019) Social History Tobacco Use Types Packs/Day Years Used Date Never Smoker Smokeless Tobacco: Never Used Alcohol Use Drinks/Week oz/Week Comments No Sex Assigned at Date Recorded Not on file documented as of this encounter Last Filed Vital Signs Not on filedocumented in this encounter Plan of Treatment Date Type Specialty Care Team Description 01/07/2020 Office Visit Neurology Sergey Lentz MD [address] [place] [address]. [place] [phone] Health Maintenance Due Date Last Done [...] Name Priority Date/Time Associated Diagnosis Comme nts REFERRAL- Routine 12/27/2019 12:01 AM CDT REQUEST/RESPONSE documented in this encounter Results Not on filedocumented in this encounter Insurance Payer Benefit Plan / Subscriber ID Effective Dates Phone Addre ss Type Group MEDICARE MEDICARE PART A [id number] 1995-Prese [phone] [address] Medicare & B nt 2 [id number] [place] [phone] [employer] [id number] 2015-[place] [employer]ERO INS t documented as of this encounter
--- OUTSIDE RECORDS SUMMARY | 2020-01-03 11:54 | XMS REPORT | Summary of Care ---
:1965 Author Organization [facility] Address [address] [place] [address] Care Team Providers Name Role Phone Pcp, Patient Does Not Have A Primary Care Provider +1-000-00 0-0000 Reason for Visit Reason Comments Follow-up Dementia due to medical cond ition without behavioral disturbance Encounter Details Date Type Department Care Team Description 11/30/2019 Office Visit [facility] Sergey Lentz's apha primo (Primary Dx); Neurology-Leolachas Mendoza MD Dementia due to medical condition withou t behavioral disturbance; [facility] [address] New daily persistent [address], [address] [place] [phone] Allergies No Known Allergiesdocumented as of [...] of this encounter Last Filed Vital Signs Vital Sign Reading Time Taken Comments Blood Pressure 147/82 11/30/2019 2:25 PM CDT Pulse 87 11/30/2019 2:25 PM CDT Temperature - - Respiratory Rate 19 11/30/2019 2:25 PM CDT Oxygen Saturation - - Inhaled Oxygen Concentration - - Weight 68.6 kg (151 lb 3.2 oz) 11/30/2019 2:25 PM CDT Height 162.6 cm (5' 4") 11/30/2019 2:25 PM CDT Body Mass Index 25.95 11/30/2019 2:25 PM CDT documented in this encounter Progress Notes Sergey Lentz MD - 11/30/2019 2:20 PM CDT HISTORY OF PRESENT ILLNESS: Deborah Garcia is a 54 year old female. 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 History: Patient has been having some type of the pain in the area where she had had her previous surgery in the left frontal temporal area. In the past she had been describing zapping sensation,but this seems to be more focused although it is a pain that is quite bothersome to her. Her husbandwho is with her points out as well that she seems to be more clumsy on her right side but this is not something that is new. She was trying to say something and also to communicate in writing about a difference in her eyes. It was difficult for me to follow what she was referring to but I think there is a difference in the way her eyelids move. PMH: has a past medical history of Brain tumor, glioma and Seizure disorder. Current Outpatient Medications: gabapentin 100 mg capsule, Take 1 capsule by mouth 3 (three) times daily., Disp: 90 capsule, Rfl: 2 cloBAZam (ONFI) 10 mg Tab, Take 1 tablet by mouth 2 (two) times daily., Disp: 180 tablet, Rfl: 3 methylphenidate HCl (RITALIN) 20 mg tablet, TAKE 1 TABLET BY MOUTH THREE TIMES DAILY, Disp: 90 tablet, Rfl: 0 divalproex ER 500 mg 24 hr tablet, Take 1 tablet by mouth every 12 (twelve) hours., Disp: 60 tablet, Rfl: 6 aspirin 81 mg chewable tablet, Take 81 mg by mouth., Disp: , Rfl: lisinopril 20 mg tablet, , Disp: , Rfl: metoprolol tartrate 25 mg tablet, Take 25 mg by mouth., Disp: , Rfl: multivitamin tablet, Take 1 tablet by mouth., Disp: , Rfl: ciprofloxacin HCl (CIPRO) 250 mg tablet, Take 1 tablet by mouth 2 (two) times daily., Disp: 14 tablet, Rfl: 0 cyclobenzaprine (FLEXERIL) 5 mg tablet, Take 1 tablet by mouth 3 (three) times daily., Disp: 15tablet, Rfl: 0 ibuprofen (MOTRIN) 400 mg tablet, Take 1 tablet by mouth 3 (three) times daily with meals., Disp: 21 tablet, Rfl: 0 History reviewed. No pertinent family history. Social History Socioeconomic History Marital status: Spouse name: Not on file Number of children: Not on file Years of education: Not on file Highest education level: Not on file Occupational History Not on file Social Needs Financial resource strain: Not on file Food insecurity Worry: Not on file Inability: Not on file Transportation needs Medical: Not on file Non-medical: Not on file Tobacco Use Smoking status: Never Smoker Smokeless tobacco: Never Used Substance and Sexual Activity Alcohol use: No Drug use: No Sexual activity: Not on file Lifestyle Physical activity Days per week: Not on file Minutes per session: Not on file Stress: Not on file Relationships Social connections Talks on phone: Not on file Gets together: Not on file Attends gnosticism service: Not on file Active member of club or organization: Not on file Attends meetings of clubs or organizations: Not on file Relationship status: Not on file Intimate partner violence Fear of current or ex partner: Not on file Emotionally abused: Not on file Physically abused: Not on file Forced sexual activity: Not on file Other Topics Concern Not on file Social History Narrative Not on file Vital signs: BP (!) 147/82 (BP Location: Left arm, Patient Position: Sitting, BP CUFF SIZE: Adult Medium) | Pulse 87 | Resp 19 | Ht 5' 4" (1.626 m) | Wt 151 lb 3.2 oz (68.6 kg) | BMI 25.95 kg/m General findings: patient does have a widened right palpebral fissure. There is no eye-movement abnormality or pupillary abnormality. The visual lilly are full. Very slight right facial asymmetry. There is a slight droop on the right side, she does have a one half power grade difference in general between right and left side to movement and strength testing. There was no muscle tone differences. She had no reflex asymmetries and they were roughly one plus. Light and sharp touch sensation bilaterally was about the same has had been in the past. ASSESSMENT AND RECOMMENDATIONS: ICD-10-CM ICD-9-CM 1. Broca's aphasia R47.01 784.3 2. Dementia due to medical condition without behavioral disturbance F02.80 294.10 3. New daily persistent headache G44.52 339.42 Impression: I was recommending that the patient consider taking gabapentin, at least on a short-termbasis. We did discuss risks and benefits of the medication and the initial dosage would be 100 mg 3 times per day. She has some right-sided symptoms, and we may need to investigate this further at the gabapentin does not help. I had noticed the widened palpebral fissure when I had seen her in the past. The will otherwise keep me posted concerning the patient progress Creation of the note was aided by utilizing a cut/paste operation of text from a Microsoft Word template created with Visual Studio. The text was dictated into the template via Dragon Naturally Speaking. documented in this encounter Plan of Treatment [...] Diagnoses Diagnosis Broca's aphasia - Primary Aphasia Dementia due to medical condition withou t behavioral disturbance Other persistent mental disorders due to conditions classified elsewhere New daily persistent headache documented in this encounter Insurance Payer Benefit Plan / Subscriber ID Effective Dates Phone Addre ss Type Group MEDICARE MEDICARE PART [id number] 1995-[place] [phone] [address] Medicare A & B nt 2 [id number] [place] [address] documented as of this encounter
--- OUTSIDE RECORDS SUMMARY | 2020-01-03 11:54 | XMS REPORT | Summary of Care ---
:1965 Author Organization [facility] Address [address] [place] [address] Care Team Providers Name Role Phone Pcp, Patient Does Not Have A Primary Care Provider +1-000-00 0-0000 Reason for Visit Reason Comments Follow-up Dementia due to medical cond ition without behavioral disturbance Encounter Details Date Type Department Care Team Description 11/30/2019 Office Visit [facility] Sergey Lentz's apha primo (Primary Dx); Neurology-Glennallenchas Mendoza MD Dementia due to medical condition withou t behavioral disturbance; [facility] [address] New daily persistent headache [address], [address] [place] [phone] Allergies No Known Allergiesdocumented [...] file Gets together: Not on file Attends evangelical service: Not on file Active member of [...] Addre ss Type Group MEDICARE MEDICARE PART [id number] 1995-[place] [phone] [address] Medicare A & B nt 2 [id number] [place] [address] documented as of this encounter
--- NOTE | 2020-01-03 12:37 | RAD REPORT ---
EXAM DESCRIPTION: CT - Ct Stroke Brain Wo Cont - 01/03/2020 12:27 pm CLINICAL HISTORY: APHASIA, unable to move right arm, slurred speech COMPARISON: Ct Stroke Brain Wo Cont dated 07/15/2017 TECHNIQUE: Axial 5 millimeter thick images of the head were obtained without IV contrast. All CT scans are performed using dose optimization technique as appropriate and may include automated exposure control or mA/KV adjustment according to patient size. FINDINGS: No intracranial hemorrhage, mass, or cerebral edema. No cortical edema or sulcal effacemen t. Significant left frontal lobe encephalomalacia is present similar to comparison. Frontal horn left lateral ventricle has enlarged in response to the brain parenchymal volume loss. Overlying postsurgi lucius changes noted the left frontal bone. Patient also has underlying atrophy similar to comparison. G ray matter-white matter differentiation is preserved. Visualized portions of the mastoid air cells, paranasal sinuses, and orbits are unremarkable. Findings telephoned to the referring physician 12:33 p.m.. IMPRESSION: No intracranial hemorrhage is present. Left frontal lobe postsurgical change and encephalomalacia along with atrophy and chronic ischemic ch abdifatah. No significant change from the June 2017 study.
[2020-01-03 12:39] LABS: Basophils % 0.6 % (0-1.3); Hematocrit 44.1 % (36.0-45.0); Lymphocytes % 22.2 % (15.3-44.8); MPV 8.9 fL (7.6-11.3); RBC Red Blood Cell Count 4.54 M/uL (3.86-4.86)
[2020-01-03 12:45] LABS: Protime INR 0.97
[2020-01-03 12:52] LABS: Potassium 4.1 mmol/L (3.5-5.1)
--- NOTE | 2020-01-03 13:21 | RAD REPORT ---
EXAM DESCRIPTION: Von Single View01/03/2020 1:12 pm CLINICAL HISTORY: CVA COMPARISON: 2017 FINDINGS: The patient is in a poor degree of inspiration resulting crowding of the pulmonary vessel s. The lungs appear grossly clear. The heart is normal size
[2020-01-03] MEDS ORDERED: ONDANSETRON 4 MG/2 ML VIAL ONE (13:40)
[2020-01-03] MEDS ORDERED: NA CHLORIDE 0.9% 1,000 ML ONE (13:43)
[2020-01-03 14:05] LABS: Urine Blood NEGATIVE (NEG); Urine Glucose NEGATIVE (NEG); Urine Protein NEGATIVE (NEG); Urine pH >8.5 (5.0-7.0)
--- NOTE | 2020-01-03 14:53 | EDPHYS ---
Physician Documentation [facility] Name: Deborah Garcia Age: 54 yrs Sex: Female : 1965 Arrival Date: 01/03/2020 Time: 11:54 Bed 17 Private MD: ED Physician Stevo Villatoro HPI: 01/02 13:54 This 54 yrs old Female presents to ER via Wheelchair with complaints of ma2 Chills, Doesn't Feel Right. 13:54 This 54 yrs old Female presents to ER via Wheelchair with complaints of ma2 Chills, Doesn't Feel Right. 13:54 The patient's problem is reported as right sided paralysis and unable to talk . Onset: ma2 The symptoms/episode began/occurred gradually, 1 day(s) ago. Duration: The episode is continuous. Context: the episode(s) was witnessed, by a significant other. Associated signs and symptoms: Pertinent negatives: ataxia, chest pain, diaphoresis, diarrhea. Severity of symptoms: At their worst the symptoms were moderate in the emergency department the symptoms have improved. The patient has not experienced similar symptoms in the past. Historical: - Allergies: 12:10 No Known Allergies; ll1 - PMHx: 12:10 Aphasia; Colitis; Hypertension; R sided deficits; BRAIN TUMOR; ll1 - PSHx: 12:10 tumor removal; ll1 - Immunization history:: Flu vaccine is up to date. - Social history:: Smoking status: Patient denies any tobacco usage or history of. Patient/guardian denies using alcohol, street drugs. - Family history:: not pertinent. ROS: 13:54 Constitutional: Negative for fever, chills, and weight loss, Eyes: Negative for injury, ma2 pain, redness, and discharge. 13:54 All other systems are negative. Exam: 13:54 Radiologist reports: no acute changes ma2 13:54 Constitutional: This is a well developed, well nourished patient who is awake, alert, and in no acute distress. Head/Face: Normocephalic, atraumatic. Eyes: Pupils equal round and reactive to light, extra-ocular motions intact. Lids and lashes normal. Conjunctiva and sclera are non-icteric and not injected. Cornea within normal limits. Periorbital areas with no swelling, redness, or edema. ENT: Nares patent. No nasal discharge, no septal abnormalities noted. Tympanic membranes are normal and external auditory canals are clear. Oropharynx with no redness, swelling, or masses, exudates, or evidence of obstruction, uvula midline. Mucous membranes moist. Neck: Trachea midline, no thyromegaly or masses palpated, and no cervical lymphadenopathy. Supple, full range of motion without nuchal rigidity, or vertebral point tenderness. No Meningismus. Chest/axilla: Normal chest wall appearance and motion. Nontender with no deformity. No lesions are appreciated. Cardiovascular: Regular rate and rhythm with a normal S1 and S2. No gallops, murmurs, or rubs. Normal PMI, no JVD. No pulse deficits. Respiratory: Lungs have equal breath sounds bilaterally, clear to auscultation and percussion. No rales, rhonchi or wheezes noted. No increased work of breathing, no retractions or nasal flaring. Abdomen/GI: Soft, non-tender, with normal bowel sounds. No distension or tympany. No guarding or rebound. No evidence of tenderness throughout. Back: No spinal tenderness. No costovertebral tenderness. Full range of motion. Skin: Warm, dry with normal turgor. Normal color with no rashes, no lesions, and no evidence of cellulitis. MS/ Extremity: Pulses equal, no cyanosis. Neurovascular intact. Full, normal range of motion. Neuro: Awake and alert, GCS 15, oriented to person, place, time, and situation. Cranial nerves II-XII grossly intact. she is unable to move right UE, paralysied and has 1/5 strength in right LE, however Motor strength 5/5 in left upper and lower extremities. Sensory grossly intact. Cerebellar exam normal. gait not tested Psych: Awake, alert, with orientation to person, place and time. Behavior, mood, and affect are within normal limits. Vital Signs: 12:07 BP 132 / 72; Pulse 86; Resp 17; Temp 97.3; Pulse Ox 100% ; Pain 0/10; ll1 13:30 BP 118 / 70; Pulse 84; Resp 16; Temp 98.4; Pulse Ox 99% on R/A; Pain 0/10; ls4 14:30 BP 128 / 70; Pulse 88; Resp 16; Pulse Ox 99% ; Pain 0/10; ls4 16:30 BP 128 / 72; Pulse 78; Resp 16; Pulse Ox 99% on R/A; Pain 0/10; ls4 17:30 BP 118 / 68; Pulse 72; Resp 16; Pulse Ox 99% on R/A; Pain 0/10; ls4 NIH Stroke Scale Scores: 13:54 NIHSS Score: 9 ma2 MDM: 12:17 Patient medically screened. ma2 13:54 Differential diagnosis: CVA, paralysis, Parkinson disease, metabolic disorder, drug ma2 effects. Data reviewed: vital signs, nurses notes. Counseling: I had a detailed discussion with the patient and/or guardian regarding: the historical points, exam findings, and any diagnostic results supporting the discharge/admit diagnosis, the presence of at least one elevated blood pressure reading (>120/80) during this emergency department visit, the need for outpatient follow up. Response to treatment: the patient's symptoms have mildly improved after treatment. 14:51 ED course: no neurology available in our hospital will transfer for higher level of ma2 care.. will not give asa here as patient symptoms improved. 01/02 12:17 Order name: Basic Metabolic Panel; Complete Time: 13:37 ma2 01/02 12:17 Order name: CBC with Diff; Complete Time: 13:37 ny2 01/02 12:17 Order name: Protime (+inr); Complete Time: 13:37 ny2 01/02 12:17 Order name: Ptt, Activated; Complete Time: 13:37 ma2 01/02 13:38 Order name: Lipase; Complete Time: 14:29 ny2 01/02 13:59 Order name: Urine Dipstick--Ancillary (enter results); Complete Time: 14:29 eb 01/02 12:17 Order name: CT Stroke Brain w/o Contrast; Complete Time: 13:37 ma2 01/02 12:17 Order name: Stroke CXR 1 View; Complete Time: 13:37 ma2 01/02 12:17 Order name: EKG; Complete Time: 12:18 ma2 01/02 13:59 Order name: Urine --Ancillary (enter results); Complete Time: 14:29 eb 01/02 12:17 Order name: Accucheck; Complete Time: 14:13 ma2 01/02 12:17 Order name: Cardiac monitoring; Complete Time: 14:12 ma2 01/02 12:17 Order name: EKG - Nurse/Tech; Complete Time: 14:13 [facility] 01/02 12:17 Order name: IV Saline Lock; Complete Time: 14:13 [facility] 01/02 12:17 Order name: Labs collected and sent; Complete Time: 14:13 [facility] 01/02 12:17 Order name: NPO; Complete Time: 14:13 [facility] 01/02 12:17 Order name: O2 Per Protocol; Complete Time: 14:13 [facility] 01/02 12:17 Order name: O2 Sat Monitoring; Complete Time: 14:13 [facility] 01/02 12:17 Order name: Stroke Swallow Screen; Complete Time: 14:13 ma2 Administered Medications: 13:50 Drug: NS 0.9% 1000 ml Route: IV; Rate: 1 bolus; Site: right forearm; ls4 15:57 Follow up: IV Status: Completed infusion; IV Intake: 1000ml ls4 14:01 Drug: Zofran (Ondansetron) 4 mg Route: IVP; Site: right forearm; ls4 14:20 Follow up: Response: No adverse reaction; Marked relief of symptoms ls4 Disposition: 01/03/20 14:[address] [facility]. Diagnosis is Weakness - right sided . - Reason for transfer: Higher level of care. - Accepting physician is accepted by dr. Castellano. - Condition is Stable. - Problem is new. - Symptoms are unchanged. NIH Stroke Scale - NIH Stroke Score Date: 01/03/2020 Time: 13:54 Total Score = 9 1a. Level of Consciousness (LOC) - 0(Alert) 1b. Level of Consciousness (LOC) (Year \T\ Age) - 0(Both) 1c. LOC Commands (Open \T\ Closes Eyes/Gastroenterology Nurse Practitioner) - 0(Both) 2. Best Gaze (Lateral Gaze Paresis) - 0(Normal) 3. Visual Field Loss - 0(No visual loss) 4. Facial Palsy - 0(Normal) 5a. Left Arm: Motor (10-second hold) - 0(No drift) 5b. Right Arm: Motor (10-second hold) - 4(No movement) 6a. Left Leg: Motor (5-second hold - always test supine) - 0(No drift) 6b. Right Leg: Motor (5-second hold - always test supine) - 4(No movement) 7. Limb Ataxia (finger/nose \T\ heel/reid - test with eyes open) - 0(Absent) 8. Sensory Loss (pinprick arms/legs/face) - 0(Normal) 9. Best Language: Aphasia (description/naming/reading) - 0(No aphasia) 10. Dysarthria (speech clarity - read or repeat words) - 1(Mild to Moderate) 11. Extinction and Inattention (visual/tactile/auditory/spatial/personal) - 0(No abnormality) Initials: ma2 Signatures: Dispatcher [employer] EDMS Stevo Villatoro MD MD ma2 Rosana Tracey RN RN ls4 Nnamdi Gupta RN RN ll1 Corrections: (The following items were deleted from the chart) 15:14 15:00 Head Angio+CT.RAD.BRZ ordered. EDMS EDMS 15:14 15:00 Neck Angio+CT.RAD.BRZ ordered. EDDC EDMS 15:36 14:52 01/03/2020 14:52 Transfer ordered to [address] Diagnosis is Weakness - right sided . Reason for transfer: Higher level of care. Accepting physician is [facility]. Condition is Stable. Problem is new. Symptoms are unchanged. ny2 18:33 15:36 01/03/2020 14:52 Transfer ordered to [address] Diagnosis is Weakness - right sided . Reason for transfer: Higher level of care. Accepting physician is accepted by dr. Castellano. Condition is Stable. Problem is new. Symptoms are unchanged. ma2
--- NOTE | 2020-01-03 14:53 | ER ---
Nurse's Notes [facility] Name: Deborah Garcia Age: 54 yrs Sex: Female : 1965 Arrival Date: 01/03/2020 Time: 11:54 Bed 17 Private MD: Diagnosis: Weakness-right sided Presentation: 01/02 12:07 Chief complaint: Patient states: Unable to move right arm since waking up at 0730. ll1 had to help her into the vehicle. Aphasia with major slurred speech per all day. Started shaking uncontrollably on the way here. Coronavirus screen: Client denies travel out of the [place] in the last 14 days. At this time, the client does not indicate any symptoms associated with coronavirus-19. Ebola Screen: Patient denies travel to an Ebola-affected area in the 21 days before illness onset. Initial Sepsis Screen: Does the patient meet any 2 criteria? No. Patient's initial sepsis screen is negative. Risk Assessment: Do you want to hurt yourself or someone else? Patient reports no desire to harm self or others. Onset of symptoms was January 03, 2020. 12:07 Method Of Arrival: Wheelchair ll1 12:07 Acuity: JULIO 2 ll1 12:10 Initial Sepsis Screen: Does the patient have a suspected source of infection? No. ls4 Patient's initial sepsis screen is negative. 12:10 Care prior to arrival: None. ls4 Triage Assessment: 12:48 General: Appears in no apparent distress. comfortable, Behavior is calm, cooperative. ls4 Pain: Denies pain. Neuro: Historical: - Allergies: 12:10 No Known Allergies; ll1 - PMHx: 12:10 Aphasia; Colitis; Hypertension; R sided deficits; BRAIN TUMOR; ll1 - PSHx: 12:10 tumor removal; ll1 - Immunization history:: Flu vaccine is up to date. - Social history:: Smoking status: Patient denies any tobacco usage or history of. Patient/guardian denies using alcohol, street drugs. - Family history:: not pertinent. Screenin:25 Abuse screen: Denies threats or abuse. Nutritional screening: No deficits noted. ls4 Tuberculosis screening: No symptoms or risk factors identified. Fall Risk None identified. Assessment: 13:30 Reassessment: No changes from previously documented assessment. Patient and/or family ls4 updated on plan of care and expected duration. Pain level reassessed. Patient is alert, oriented x 3, equal unlabored respirations, skin warm/dry/pink. 14:30 Reassessment: No changes from previously documented assessment. Patient and/or family ls4 updated on plan of care and expected duration. Pain level reassessed. Patient is alert, oriented x 3, equal unlabored respirations, skin warm/dry/pink. 15:30 Reassessment: No changes from previously documented assessment. Patient and/or family ls4 updated on plan of care and expected duration. Pain level reassessed. Patient is alert, oriented x 3, equal unlabored respirations, skin warm/dry/pink. 16:30 Reassessment: No changes from previously documented assessment. Patient and/or family ls4 updated on plan of care and expected duration. Pain level reassessed. Patient is alert, oriented x 3, equal unlabored respirations, skin warm/dry/pink. 17:30 Reassessment: No changes from previously documented assessment. Patient and/or family ls4 updated on plan of care and expected duration. Pain level reassessed. Patient is alert, oriented x 3, equal unlabored respirations, skin warm/dry/pink. Vital Signs: 12:07 BP 132 / 72; Pulse 86; Resp 17; Temp 97.3; Pulse Ox 100% ; Pain 0/10; ll1 13:30 BP 118 / 70; Pulse 84; Resp 16; Temp 98.4; Pulse Ox 99% on R/A; Pain 0/10; ls4 14:30 BP 128 / 70; Pulse 88; Resp 16; Pulse Ox 99% ; Pain 0/10; ls4 16:30 BP 128 / 72; Pulse 78; Resp 16; Pulse Ox 99% on R/A; Pain 0/10; ls4 17:30 BP 118 / 68; Pulse 72; Resp 16; Pulse Ox 99% on R/A; Pain 0/10; ls4 NIH Stroke Scale Scores: 13:54 NIHSS Score: 9 ma2 ED Course: 11:54 Patient arrived in ED. mr 12:09 Triage completed. ll1 12:10 Arm band placed on Patient placed in an exam room, on a stretcher. ll1 12:12 No provider procedures requiring assistance completed. Inserted saline lock: 18 gauge ls4 in right antecubital area, using aseptic technique. Blood collected. 12:12 Initial lab(s) drawn, by me, sent to lab. Urine collected: clean catch specimen, clear, ls4 EKG done, by ED staff, reviewed by Stevo Villatoro MD. Patient maintains SpO2 saturation greater than 95% on room air. 12:17 Stevo Villatoro MD is Attending Physician. ma2 12:25 Rosana Tracey, ERICK is Primary Nurse. ls4 12:25 Patient has correct armband on for positive identification. Bed in low position. Call ls4 light in reach. Side rails up X 1. threat monitoring analyst on. Pulse ox on. NIBP on. 12:27 CT Stroke Brain w/o Contrast In Process Unspecified. EDMS 13:12 Stroke CXR 1 View In Process Unspecified. EDMS 14:52 initiated a transfer with Leatha from the [facility]. eb 14:[address] Hudson the neurologist building consultant for [facility] with Dr. Villatoro for eb patient transfer consultation. 15:[address] Hudson again with Dr. Villatoro for patient transfer consultation. eb 15:[address] Sethi the emergency room doctor building consultant for [facility] with Dr. guerrero Villatoro for patient transfer consultation. 15:24 administrative approval given by Leatha Pretty Rn/ patient has been accepted to [facility] ER/ Dr. Sethi has accepted the patient in transfer/ report to be called to [phone]. 18:10 Patient transferred, IV remains in place. ls4 Administered Medications: 13:50 Drug: NS 0.9% 1000 ml Route: IV; Rate: 1 bolus; Site: right forearm; ls4 15:57 Follow up: IV Status: Completed infusion; IV Intake: 1000ml ls4 14:01 Drug: Zofran (Ondansetron) 4 mg Route: IVP; Site: right forearm; ls4 14:20 Follow up: Response: No adverse reaction; Marked relief of symptoms ls4 Intake: 15:57 IV: 1000ml; Total: 1000ml. ls4 Outcome: 14:52 ER care complete, transfer ordered by . flWilmer 18:08 Transferred by ground EMS to [facility], Transfer form completed. X-rays ls4 sent w/ patient. 18:08 Condition: good 18:08 Discharge instructions given to patient, Instructed on the need for transfer. 18:33 Patient left the ED. ls4 NIH Stroke Scale - NIH Stroke Score Date: 01/03/2020 Time: 13:54 Total Score = 9 1a. Level of Consciousness (LOC) - 0(Alert) 1b. Level of Consciousness (LOC) (Year \T\ Age) - 0(Both) 1c. LOC Commands (Open \T\ Closes Eyes/Electroplater Apprentice) - 0(Both) 2. Best Gaze (Lateral Gaze Paresis) - 0(Normal) 3. Visual Field Loss - 0(No visual loss) 4. Facial Palsy - 0(Normal) 5a. Left Arm: Motor (10-second hold) - 0(No drift) 5b. Right Arm: Motor (10-second hold) - 4(No movement) 6a. Left Leg: Motor (5-second hold - always test supine) - 0(No drift) 6b. Right Leg: Motor (5-second hold - always test supine) - 4(No movement) 7. Limb Ataxia (finger/nose \T\ heel/reid - test with eyes open) - 0(Absent) 8. Sensory Loss (pinprick arms/legs/face) - 0(Normal) 9. Best Language: Aphasia (description/naming/reading) - 0(No aphasia) 10. Dysarthria (speech clarity - read or repeat words) - 1(Mild to Moderate) 11. Extinction and Inattention (visual/tactile/auditory/spatial/personal) - 0(No abnormality) Initials: lois Signatures: Dispatcher [employer] Rosanna Reynaga Mohammad, MD MD ma2 Kristie Mar Lisa RN RN ls4 Nnamdi Gupta RN RN ll1
[2020-01-04 06:17] VITALS: TEMP 98.4; O2SAT 99
[2020-01-04 06:20] VITALS: BP 118/68
--- NOTE | 2020-01-04 20:02 | EKG ---
Test Date: 2020-01-03 Test Time: 12:36:52 Bending Frame Operator: RENE MEASUREMENT RESULTS: Intervals: Rate: 82 CA: 126 QRSD: 66 QT: 360 QTc: 420 Sunset: P: 47 CA: 126 QRS: 40 T: 54 INTERPRETIVE STATEMENTS: Normal sinus rhythm Possible Left atrial enlargement Borderline ECG Compared to ECG 07/15/2017 11:28:23 No significant changes Electronically Signed On 01-04-20 19:59:28 CDT by Ruslan Lynch
== END 2020-01-03 18:33 | disposition short-term general hospital (02) ==
LOC: ER 11:51
DX: G81.91 Hemiplegia, unspecified affecting right dominant side (principal); I10 Essential (primary) hypertension; Z85.841 Personal history of malignant neoplasm of brain
CPT/HCPCS: 96361; 93005; 85025; 80048; 36415; 81025; 85610; 85730; 81003; 83690; 70450; 71045; 96374; 99285; J7030; J2405

== ENCOUNTER 2021-09-09 19:38 | Emergency (ER) | payer OTHER ==
[2021-09-09] MEDS ORDERED: HYDROCODONE/APAP 5/325 MG TAB ONE (20:10)
--- OUTSIDE RECORDS SUMMARY | 2021-09-09 20:10 | XMS REPORT | Continuity of Care Document ---
:1965 Author Organization [facility] [place] t Address [address] [place] [address] Care Team Providers Name Role Phone PATRICIO WARNER JR Primary Care Physician Unavailable SARAH Attending Clinician Unavailable Douglas BAUTISTA Attending Clinician Unavailable Stefanie LUTZ, Gene Attending Clinician JOHNATHON SMITH Attending Clinician Unavailable Hi VIEIRA Attending Clinician Unavailable PORSHA NAVA Attending Clinician Unavailable Doctor Unassigned, Name Attending Clinician Unavailable Antolin RN Attending Clinician Unavailable Pedro SUAREZ Attending Clinician Unavailable BRYAN Attending Clinician Unavailable Israel LUTZ Attending Clinician Karlos LUTZ Attending Clinician Bryan PETE Attending Clinician LUCIEN Attending Clinician Unavailable ELINA GRAY Attending Clinician Unavailable Paulina MILLER Attending Clinician Unavailable GLORIA Attending Clinician Unavailable Gloria LUTZ Attending Clinician Meli LUTZ, Not In Attending Clinician Unavailable Krupa LUTZ Attending Clinician Marilia LUTZ Attending Clinician JORI Attending Clinician Unavailable Constantin LUTZ I Attending Clinician FLORY KILLIAN Attending Clinician Unavailable JORI BAUTISTA Attending Clinician Unavailable Abraham Coronado MD Attending Clinician Denton Anderson DO Attending Clinician CESIA WATTS Attending Clinician Unavailable CESIA WATTS Attending Clinician Unavailable Maryan LUTZ Attending Clinician Dannie Quiroga MD, Magnus Attending Clinician [phone] Yan Ledezma MD Attending Clinician SANDY Attending Clinician Unavailable Sandy MORGAN Attending Clinician 2, Lab Attending Clinician Unavailable JORI KC Attending Clinician Unavailable JOHNATHON SMITH Admitting Clinician Unavailable BRYAN Admitting Clinician Unavailable Bryan PETE Admitting Clinician JORI Admitting Clinician Unavailable JORI BAUTISTA Admitting Clinician Unavailable YAN LEDEZMA Admitting Clinician Unavailable JORI KC Admitting Clinician Unavailable Payers Payer Name Policy Type Policy Number Effective Date Expiration Date Abraham pastrana MEDICARE PART A [id number] 1995 AND B 00:00:00 Problems Condition Condition Condition Status Onset Resolution Last Treating Co mments Source Name Details Category Date Date Treatment Clinician Date Pneumonia Pneumonia Disease Active Uni vers due to due to 04-29 ity of COVID-19 COVID-19 00:00: [place] virus virus [facility] Respirator Respirator Disease Active U nivers y failure y failure 04-29 ity of 00:00: [place] 00 [facility] CVA CVA Disease Active Univers (cerebral (cerebral 04-29 ity of vascular vascular 00:00: [place] accident) accident) [facility] Seizure Seizure Disease Active Univers 04-29 ity of 00:00: [place] 00 [facility] HYPOXIA Diagnosis Active 2020-042021-03-22 Me moria 05-17 21:42:00 l HYPOXIA 00:00: [place] 00 Active 03/17/2021 [facility] OPEN WOUND Diagnosis Active 2020-042021-04-12 Memoria TO LEG AND 04-28 13:11:00 l SCALP OPEN 06:00: [place] WOUND TO 00 LEG AND SCALP Active 02/26/2021 [facility] OTHER Diagnosis Active 2021-01-17 Mem oria ACQUIRED 8- 13:25:00 l DEFORMITY OTHER 00:00: [place] OF HEAD ACQUIRED 00 DEFORMITY OF HEAD Active 12/06/2020 [facility] Skull Skull Disease Active [facility] defect defect 09-27 Health 00:00: 00 ACUTE Diagnosis Active 2020-09-27 Mem oria ONSET - 21:48:00 l SEPSIS ACUTE 00:00: [place] ONSET 00 SEPSIS Active 09/15/2020 [facility] FEVER Diagnosis Active 2020-09-15 Mem oria 5-21 16:51:00 l FEVER 00:00: [place] 00 Active 09/15/2020 [facility] GAMMA Diagnosis Active 2020-09-15 Mem oria KNIFE 5-14 07:48:00 l FOLLOW UP GAMMA 00:00: [place] KNIFE 00 FOLLOW UP Active 09/08/2020 [facility] SENT BY Diagnosis Active 2020-08-25 Me chelsey HOANG,BLOOD 08-25 18:27:00 l CULTURES SENT BY 00:00: Brianna salgado DR,BLOOD 00 CULTURES Active 08/25/2020 [facility] BRAIN Diagnosis Active 2020-09-04 Mem oria INFECTION 08-25 21:50:00 l BRAIN 00:00: [place] INFECTION 00 Active 08/25/2020 [facility] DEHISCENCE Diagnosis Active 2020-08-29 Memoria WOUND 08-15 21:58:00 l 00:00: [place] DEHISCENCE 00 WOUND Active 08/15/2020 [facility] HEAD Diagnosis Active 2020-08-15 Mem oria INJURY 20 21:45:00 l HEAD 00:00: [place] INJURY 00 Active 08/15/2020 [facility] Acute Acute Disease Active [facility] stroke stroke 00:[facility]: Medical [address] [place] [address] Right Right Disease Active [facility] s[facility]ided 07 [facility] weakness weakness 00:00: Medica l 00 Center C71.9 - Diagnosis Active 2019-06-12 Me moria MALIGNANT 12-31 10:34:00 l NEOPLASM C71.9 - 00:01: Brianna nn OF BRAIN, MALIGNANT 00 U NEOPLASM OF BRAIN, U Active 12/31/2018 BUSTER Arreaga GK FOLLOW Diagnosis Active 2018-12-30 [facility]oria UP 09-15 15:07:00 l GK 00:00: [place] FOLLOW UP 00 Active 09/15/2018 [facility] C71.9 Diagnosis Active 2018-08-28 [facility] oria 4-16 15:31:00 l C71.9 00:00: [place] 00 Active 08/11/2018 [facility] Seizure Seizure Disease Active [facility] Medical 00 [place] Acute Acute Disease Active [facility] cystitis cystitis 3-26 [facility] 00:[facility]: Medical 00 [place] Weakness Weakness Disease [facility] Medical 00 [place] CVA CVA Disease Active [facility] (cerebral (cerebral 3-20 [facility] vascular vascular 00:00: Medica l accident) accident) 00 Cent er Aphasia Aphasia Disease Active [facility] 00 [place] Physical Physical Disease Active [facility] deconditio deconditio 3-20 Samia kes daksha daksha 00:00: Medical 00 [place] Dysarthria Dysarthria Disease Active [facility]: Medical 00 [place] Hypertensi Hypertensi Disease Active [facility] on on 3[facility]20 [facility] 00:00: Medical 00 [place] No known No known Disease Unive rs active active ity of problems problems [facility] Benign Problem Resolve 2021-03-19 Dannie pat neoplasm d 22:25:58 l of Benign Duy meninges neoplasm (disorder) of meninges (disorder) Resolved Problem 03/19/2021 Medical [facility] her Neuro,[facility], [place] H BUSTER Arre[place] 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 23:04:36 l brain Glial Duy (disorder) tumor of brain (disorder) Active Problem 09/04/2018 [facility], OPID Arreaga Bacterial Problem Active 2021-03-19 Me moria infectious 22:25:58 l disease [place] (disorder) Bacterial infectious disease (disorder) Active Problem 03/19/2021 [facility] Past Problem Active 2021-03-19 Memor ia history of 22:25:58 l clinical Past [place] finding history of (context-d clinical ependent finding category) (context-d ependent category) Active Problem 03/19/2021 [facility] History of Problem Active 2021-03-19 M emoria craniotomy 22:25:58 l (situation History Her [place] ) of craniotomy (situation ) Active Problem 03/19/2021 [facility] 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 (disorder) Active Problem 03/19/2021 [facility] Postmenopa Problem Active 2021-03-19 M emoria usal state 22:25:58 l (finding) [place] Postmenopa usal state (finding) Active Problem 03/19/2021 [facility] ENCNTR FOR Diagnosis Active 2020-09-15 Memoria GENERAL 07:48:00 l ADULT ENCNTR [place] MEDICAL FOR EXAM W/ GENERAL ADULT MEDICAL EXAM W/ Active [facility] OPEN WOUND Diagnosis Active 2021-02-28 Memoria 17:01:00 l OPEN [place] WOUND Active [facility] DISRUPTION Diagnosis Active 2020-08-29 Memoria OF 21:58:00 l EXTERNAL Duy OPERATION DISRUPTION (SURGIC OF EXTERNAL OPERATION (SURGIC Active [facility] SEPSIS, Diagnosis Active 2020-09-27 Me moria UNSPECIFIE 21:48:00 l D ORGANISM SEPSIS, Her [place] UNSPECIFIE D ORGANISM Active [facility] ENCEPHALIT Diagnosis Active 2020-09-04 Memoria IS AND 21:50:00 l ENCEPHALOM [place] YELITIS, ENCEPHALIT UNSP IS AND ENCEPHALOM YELITIS, UNSP Active [facility] History of Past Illness Condition Condition Condition Status Onset Resolution Last Treating Co mments Source Name Details Category Date Date Treatment Clinician Date Hypoxemia Problem 2020-042021-03-19 2021-03-19 Memoria 05-17 22:25:58 22:25:58 l 12:51: [place] Hypoxemia 00 03/17/2021 03/19/2021 [place] Other Problem 2021-01-25 2021-01-25 M emoria malaise 01-19 23:30:47 23:30:47 l Other 19:12: [place] malaise 00 01/19/2021 01/25/2021 [facility] Unsteadine Problem 2021-01-25 2021-01-25 Memoria ss on feet 01-19 23:30:47 23:30:47 l 19:12: [place] Unsteadine 00 ss on feet 01/19/2021 01/25/2021 [facility] Cognitive Problem 2021-01-25 2021-01-25 Memoria communicat 01-19 23:30:47 23:30:47 l ion 19:11: Duy deficit Cognitive 00 communicat ion deficit 01/19/2021 01/25/2021 [facility] Allergies, Adverse Reactions, Alerts Allergy Allergy Status Severity Reaction(s) Onset Inactive Treating Comm ents Source Name Type Date Date Clinician CEFEPIME DRUG Active Unknown-Cmnt Un aria INGREDI 04-29 ity of 00:00: [place] 00 Medical Branch Cefepime Propensi Active Unknown - Uni vers ty to See comments 04-29 ity of adverse 00:00: [place] reaction 00 Medical s Branch Ceftriax Propensi Active Rash [place] one ty to 09-27 Health adverse 00:00: reaction 00 s NO KNOWN Drug Active Univers ALLERGIE Class ity of S [facility] cefepime cefepime Active Memori a <sup>1</ <sup>1</ l sup> sup> Duy NO KNOWN Allergy Active [facility] ALLERGIE S Social History Social Habit Start Date Stop Date Quantity Comments Source History of Smoker [facility] [employer] tobacco use [facility] Exposure to Not sure [facility] SARS-CoV-2 (event) Alcohol intake 2021-04-29 2021-04-29 Current University of 00:00:00 00:00:00 non-drinker of [facility] alcohol Branch (finding) Social History 2018-08-27 2018-08-27 [facility] ellis 15:34:38 15:34:38 Tobacco use and 2017-11-21 2017-11-21 Never used Universit y of exposure 00:00:00 00:00:00 [facility] [birth year] Universit y of 00:00:00 00:00:00 [facility] Smoking Status Start Date Stop Date Source Tobacco smoking [facility] consumption unknown Ex-smoker 2020-12-06 00:00:00 2020-12-06 [facility] 00:[facility]:[address] [facility] Medications Ordered Filled Start Stop Current Ordering Indication Dosage Frequency Signature Comments Components Source Medication Medication Date Date Medication? Clinician (SIG) Name Name methylpheni Yes [id number] 20mg Take 1 Univers date HCl 20 5-12 tablet by ity of mg tablet 00:00: mouth 3 [place] (three) Medical times Branch daily. traMADol 2021- Yes [id number] 50mg Q6H Take 1 U T (Ultram) 50 5-04 05-10 tablet (50 H ealth MG tablet 00:00: 04:59 mg total) 00 :00 by mouth every 6 (six) hours if needed for severe pain for up to 5 days. HYDROcodone 2021- Yes [id number] 1{tbl} Q6H Take 1 UT -acetaminop 4-27 05-03 tablet by Daniel johnston ([place]) 00:00: 04:59 mouth 10-325 MG 00 :00 every 6 tablet (six) hours if needed for severe pain for up to 5 days. cloBAZam 10 Yes [id number] 10mg Take 1 Univers mg tablet 4-01 tablet by ity o f 00:00: mouth 2 [place] (two) Medical times Branch daily. methylpheni Yes [id number] 20mg Take 1 Univers date HCl 20 4-01 tablet by ity of mg tablet 00:00: mouth 3 (three) Medical times Branch daily. cloBAZam 10 2022-0 Yes [id number] 10mg Take 1 Univers mg tablet 4-01 tablet by ity o f 00:00: mouth 2 00 (two) Medical times Branch daily. methylpheni 2-0 Yes [id number] 20mg Take 1 Univers date HCl 20 4-01 tablet by ity of mg tablet 00:00: mouth 3 00 (three) Medical times Branch daily. cloBAZam 10 2021-0 Yes [id number] 10mg Take 1 Univers mg tablet 4-01 tablet by ity o f 00:00: mouth 2 00 (two) Medical times Branch daily. methylpheni 2-0 2022- No [id number] 20mg Take 1 Univers date HCl 20 4-01 05-12 tablet by it y of mg tablet 00:00: 00:00 [place] 3 [place] (three[place] Medical times Branch daily. gabapentin 2021-0 Yes [id number] 100mg Take 1 Univers 100 mg 3-31 9105 capsule by ity of capsule 00:00: mouth 3 [place] (three) Medical times Branch daily. gabapentin 2-0 Yes [id number] 100mg Take 1 Univers 100 mg 3-31 9105 capsule by ity of capsule 00:00: mouth 3 [place] (three) Medical times Branch daily. gabapentin 2022-0 Yes [id number] 100mg Take 1 Univers 100 mg 3-31 9105 capsule by ity of capsule 00:00: mouth 3 [place] (three) Medical times Branch daily. aspirin 81 2021-0 Yes 81mg Take 81 mg U nivers mg chewable 1-07 by mouth. ity of tablet 13:16: [address] metoprolol 2021-0 Yes 25mg Take 25 mg U nivers tartrate 25 1-07 by mouth. ity of mg tablet 13:16: [address] aspirin 81 2-0 Yes 81mg Take 81 mg U nivers mg chewable 1-07 by mouth. ity of tablet 13:16: [address] metoprolol 2-0 Yes 25mg Take 25 mg U nivers tartrate 25 1-07 by mouth. ity of mg tablet 13:16: [address] aspirin 81 2021-0 Yes 81mg Take 81 mg U nivers mg chewable 1-07 by mouth. ity of tablet 13:16: [address] metoprolol 0 Yes 25mg Take 25 mg U nivers tartrate 25 1-07 by mouth. ity of mg tablet 13:16: [address] aspirin 81 2021-0 Yes 81mg Take 81 mg U nivers mg chewable 1-07 by mouth. ity of tablet 13:16: [address] metoprolol 2021-0 Yes 25mg Take 25 mg U nivers tartrate 25 1-07 by mouth. ity of mg tablet 13:16: [address] aspirin 81 2021-0 Yes 81mg Take 81 mg U nivers mg chewable 1-07 by mouth. ity of tablet 13:16: [address] metoprolol 2021-0 Yes 25mg Take 25 mg U nivers tartrate 25 1-07 by mouth. ity of mg tablet 13:16: [address] aspirin 81 2021-0 Yes 81mg Take 81 mg U nivers mg chewable 1-07 by mouth. ity of tablet 13:16: [address] metoprolol 2021-0 Yes 25mg Take 25 mg U nivers tartrate 25 1-07 by mouth. ity of mg tablet 13:16: [address] aspirin 81 0 Yes 81mg Take 81 mg U nivers mg chewable 1-07 by mouth. ity of tablet 13:16: [address] metoprolol 2021-0 Yes 25mg Take 25 mg U nivers tartrate 25 1-07 by mouth. ity of mg tablet 13:16: [address] aspirin 81 2021-0 Yes 81mg Take 81 mg U nivers mg chewable 1-07 by mouth. ity of tablet 13:16: [address] metoprolol 0 Yes 25mg Take 25 mg U nivers tartrate 25 1-07 by mouth. ity of mg tablet 13:16: [address] multivitami 2021-2021- No 1{tbl} Take 1 U nivers n tablet 05-04 tablet by ity o f 11:31: 00:00 mouth. [place] 07 :00 [facility] enoxaparin 0 Yes 40mg 40 mg, Unive rs (LOVENOX) 05-03 Subcutaneo ity of injection 02:00: us, Q12H, [place] as 40 mg 00 First dose Medical on Fri Branch 05/02/21 at 2000, Until Discontinu ed, Routine silver 202-0 Yes Topical, Univers sulfADIAZIN 1-05 BID, First it y of E 02:00: dose on [place] (SILVADENE) 00 Fri05/01/21 Me dical 1 % cream at 1999, Branch Until Discontinu ed, Routine lisinopriL 2021-0 Yes 5mg 5 mg, Univer s (PRINIVIL,Z -03 Oral, ity of ESTRIL) 15:00: DAILY, [place] tablet 5 mg 00 First dose Me dical on Fri Branch 04/30/21 at 0900, Until Discontinu ed, Routine aspirin 2021-0 Yes 81mg 81 mg, Univers chewable 03 Oral, ity of tablet 81 15:00: DAILY, [place] mg 00 First dose Medical on Fri Branch 04/30/21 at 0900, Until Discontinu ed, Routine valproic 2021-0 Yes 750mg 750 mg, Unive rs acid -03 Oral, ity of (DEPAKENE) 04:00: Q12H, [place] 250 mg/5 mL 00 First dose Me dical solution on [place] Branch 750 mg 04/29/21 at 2200, Until Discontinu ed, Routine metoprolol 2021-0 Yes 25mg 25 mg, Unive rs tartrate 1-03 Oral, BID, ity o f (LOPRESSOR) 02:00: First dose [place] tablet 25 00 on Sun Medical mg 04/29/21 at Branch 2000, Until Discontinu ed, Routine gabapentin 2021-0 Yes 100mg 100 mg, Uni vers (NEURONTIN) 1-03 Oral, TID, it y of capsule 100 02:00: First dose [place] mg 00 on [facility] Medical 04/29/21 at Branch 2000, Until Discontinu ed, Routine cloBAZam 2021-0 Yes 10mg 10 mg, Univers (ONFI) 2.5 1-03 Oral, BID, ity of mg/mL oral 02:00: First dose [place] suspension 00 on [facility] Medical 10 mg 04/29/21 at Branch 2000, Until Discontinu ed heparin 2021-0 2022- No 5000U 5,000 Univers (porcine) 1-03 01-05 Units, ity of injection 02:00: 22:21 Subcutaneo [place] 5,000 Units 00 :19 us, Q12H, Med ical First dose Branch on 04/29/21 at 2000, Until Discontinu ed, Routine dexamethaso No 6mg 6 mg, IV U nivers ne 04-29 0112 Push, ity of (DECADRON 23:00: 22:59 Q24H, 10 [place] PHOSPHATE) 00 :00 doses, Medical injection 6 First dose Br anch mg on 04/29/21 at 1700, Last dose on Fri05/08/21 at 1700, Routine ondansetron Yes 4mg 4 mg, Slow Univers (ZOFRAN 04-29 IV Push, ity of (PF)) 21:48: Q6HPRN, [place] injection 4 42 Starting Medi lucius mg on Sun Branch 04/29/21 at 1548, Until Discontinu ed, Routine, Nausea and Vomiting (N/V) acetaminoph Yes 650mg 650 mg, Un aria en 04-29 Oral, ity of (TYLENOL) 21:48: Q6HPRN, [place] tablet 650 35 Starting Medic al mg on Sun Branch 04/29/21 at 1548, Until Discontinu ed, Routine, Pain (scale 1-3) acetaminoph No 1000mg 1,000 mg, Univers en ADULT 04-29 IV ity of (OFIRMEV) 18:15: 17:23 Infusion, [place] injection 00 :00 Administer Medi lucius 1,000 mg over 15 Branch Minutes, ONCE, 1 dose, On 04/29/21 at 1215, Routine
Indicatio n: Non-periop erative Patient
Approved by: Per Policy (NPO Status) cloBAZam 2020-04 Yes 10mg Q.5D Take 10 mg UT (Onfi) 2.5 2-29 by mouth Healt h mg/mL 10:06: twice a suspension 56 day. valproic 2020-04 Yes Take by UT acid 2-29 mouth. Health (Depakene) 10:06: 250 MG/5ML 56 oral liquid polyethylen 2020-04 Yes 17g QD Take 17 g U T e glycol 2-29 by mouth 1 Healt h (Glycolax) 10:06: (one) time 17 GM/SCOOP 56 each day. powder senna 2020-04 Yes 1{tbl} QD Take 1 UT (Senokot) 2-29 tablet by Healt h 8.6 MG 10:06: mouth 1 tablet 56 (one) time each day. gabapentin 2020-04 Yes 400mg Q.[id number] Take 400 UT (Neurontin) 2-29 [id number] mg by H ealth 400 MG 10:06: 3D mouth 3 capsule 56 (three) times a day. mupirocin 2020-04 Yes Q.[id number] Apply U T (Bactroban) 2-29 [id number] topically Health 2 % 10:06: 3D 3 (three) ointment 56 times a day. docusate 2020-04 Yes 100mg Q.5D Take 100 UT sodium 2-29 mg by Health (Colace) 10:06: mouth 2 100 MG 56 (two) capsule times a day. cloBAZam 2020-04 Yes 10mg Q.5D Take 10 mg UT (Onfi) 2.5 2-29 by mouth Healt h mg/mL 10:06: twice a suspension 56 day. valproic 2020-04 Yes Take by UT acid 2-29 mouth. Health (Depakene) 10:06: 250 MG/5ML 56 oral liquid polyethylen 2020-04 Yes 17g QD Take 17 g U T e glycol 2-29 by mouth 1 Healt h (Glycolax) 10:06: (one) time 17 GM/SCOOP 56 each day. powder senna 2020-04 Yes 1{tbl} QD Take 1 UT (Senokot) 2-29 tablet by Healt h 8.6 MG 10:06: mouth 1 tablet 56 (one) time each day. gabapentin 2020-04 Yes 400mg Q.[id number] Take 400 UT (Neurontin) 2-29 [id number] mg by H ealth 400 MG 10:06: 3D mouth 3 capsule 56 (three) times a day. mupirocin 2020-04 Yes Q.[id number] Apply U T (Bactroban) 2-29 [id number] topically Health 2 % 10:06: 3D 3 (three) ointment 56 times a day. docusate 2020-04 Yes 100mg Q.5D Take 100 UT sodium 2-29 mg by Health (Colace) 10:06: mouth 2 100 MG 56 (two) capsule times a day. cloBAZam 2020-04 Yes 10mg Q.5D Take 10 mg UT (Onfi) 2.5 2-29 by mouth Healt h mg/mL 10:06: twice a suspension 56 day. valproic 2020-04 Yes Take by UT acid 2-29 mouth. Health (Depakene) 10:06: 250 MG/5ML 56 oral liquid polyethylen 2020-04 Yes 17g QD Take 17 g U T e glycol 2-29 by mouth 1 Healt h (Glycolax) 10:06: (one) time 17 GM/SCOOP 56 each day. powder senna 2020-04 Yes 1{tbl} QD Take 1 UT (Senokot) 2-29 tablet by Healt h 8.6 MG 10:06: mouth 1 tablet 56 (one) time each day. gabapentin 2020-04 Yes 400mg Q.[id number] Take 400 UT (Neurontin) 2-29 [id number] mg by H ealth 400 MG 10:06: 3D mouth 3 capsule 56 (three) times a day. mupirocin 2020-04 Yes Q.[id number] Apply U T (Bactroban) 2-29 [id number] topically Health 2 % 10:06: 3D 3 (three) ointment 56 times a day. docusate 2020-04 Yes 100mg Q.5D Take 100 UT sodium 2-29 mg by Health (Colace) 10:06: mouth 2 100 MG 56 (two) capsule times a day. cloBAZam 2020-04 Yes 10mg Q.5D Take 10 mg UT (Onfi) 2.5 2-29 by mouth Healt h mg/mL 10:06: twice a suspension 56 day. valproic 2020-04 Yes Take by UT acid 2-29 mouth. Health (Depakene) 10:06: 250 MG/5ML 56 oral liquid polyethylen 2020-04 Yes 17g QD Take 17 g U T e glycol 2-29 by mouth 1 Healt h (Glycolax) 10:06: (one) time 17 GM/SCOOP 56 each day. powder senna 2020-04 Yes 1{tbl} QD Take 1 UT (Senokot) 2-29 tablet by Healt h 8.6 MG 10:06: mouth 1 tablet 56 (one) time each day. gabapentin 2020-04 Yes 400mg Q.[id number] Take 400 UT (Neurontin) 2-29 [id number] mg by H ealth 400 MG 10:06: 3D mouth 3 capsule 56 (three) times a day. mupirocin 2020-04 Yes Q.[id number] Apply U T (Bactroban) 2-29 [id number] topically Health 2 % 10:06: 3D 3 (three) ointment 56 times a day. docusate 2020-04 Yes 100mg Q.5D Take 100 UT sodium 2-29 mg by Health (Colace) 10:06: mouth 2 100 MG 56 (two) capsule times a day. cloBAZam 2020-04 Yes 10mg Q.5D Take 10 mg UT (Onfi) 2.5 2-29 by mouth Healt h mg/mL 10:06: twice a suspension 56 day. valproic 2020-04 Yes Take by UT acid 2-29 mouth. Health (Depakene) 10:06: 250 MG/5ML 56 oral liquid polyethylen 2020-04 Yes 17g QD Take 17 g U T e glycol 2-29 by mouth 1 Healt h (Glycolax) 10:06: (one) time 17 GM/SCOOP 56 each day. powder senna 2020-04 Yes 1{tbl} QD Take 1 UT (Senokot) 2-29 tablet by Healt h 8.6 MG 10:06: mouth 1 tablet 56 (one) time each day. gabapentin 2020-04 Yes 400mg Q.[id number] Take 400 UT (Neurontin) 2-29 [id number] mg by H ealth 400 MG 10:06: 3D mouth 3 capsule 56 (three) times a day. mupirocin 2020-04 Yes Q.[id number] Apply U T (Bactroban) 2-29 [id number] topically Health 2 % 10:06: 3D 3 (three) ointment 56 times a day. docusate 2020-04 Yes 100mg Q.5D Take 100 UT sodium 2-29 mg by Health (Colace) 10:06: mouth 2 100 MG 56 (two) capsule times a day. cloBAZam 2020-04 Yes 10mg Q.5D Take 10 mg UT (Onfi) 2.5 2-29 by mouth Healt h mg/mL 10:06: twice a suspension 56 day. valproic 2020-04 Yes Take by UT acid 2-29 mouth. Health (Depakene) 10:06: 250 MG/5ML 56 oral liquid polyethylen 2020-04 Yes 17g QD Take 17 g U T e glycol 2-29 by mouth 1 Healt h (Glycolax) 10:06: (one) time 17 GM/SCOOP 56 each day. powder senna 2020-04 Yes 1{tbl} QD Take 1 UT (Senokot) 2-29 tablet by Healt h 8.6 MG 10:06: mouth 1 tablet 56 (one) time each day. gabapentin 2020-04 Yes 400mg Q.[id number] Take 400 UT (Neurontin) 2-29 [id number] mg by H ealth 400 MG 10:06: 3D mouth 3 capsule 56 (three) times a day. mupirocin 2020-04 Yes Q.[id number] Apply U T (Bactroban) 2-29 [id number] topically [facility] 2 % 10:06: 3D 3 (three) ointment 56 times a day. docusate 2020-04 Yes 100mg Q.5D Take 100 UT sodium 2-29 mg by Health (Colace) 10:06: mouth 2 100 MG 56 (two) capsule times a day. cloBAZam 2020-04 Yes 10mg Q.5D Take 10 mg UT (Onfi) 2.5 2-29 by mouth Healt h mg/mL 10:06: twice a suspension 56 day. valproic 2020-04 Yes Take by UT acid 2-29 [facility] 10:06: 250 MG/5ML 56 oral liquid polyethylen 2020-04 Yes 17g QD Take 17 g U T e glycol 2-29 by mouth 1 Healt h (Glycolax) 10:06: (one) time 17 GM/SCOOP 56 each day. powder senna 2020-04 Yes 1{tbl} QD Take 1 UT (Senokot) 2-29 tablet by Healt h 8.6 MG 10:06: mouth 1 tablet 56 (one) time each day. gabapentin 2020-04 Yes 400mg Q.[id number] Take 400 UT (Neurontin) 2-29 [id number] mg by H ealth 400 MG 10:06: 3D mouth 3 capsule 56 (three) times a day. mupirocin 2020-04 Yes Q.[id number] Apply U T (Bactroban) 2-29 [id number] topically Health 2 % 10:06: 3D 3 (three) ointment 56 times a day. docusate 2020-04 Yes 100mg Q.5D Take 100 UT sodium 2-29 mg by Health (Colace) 10:06: mouth 2 100 MG 56 (two) capsule times a day. cloBAZam 2020-04 Yes 10mg Q.5D Take 10 mg UT (Onfi) 2.5 2-29 by mouth Healt h mg/mL 10:06: twice a suspension 56 day. valproic 2020-04 Yes Take by UT acid 2-29 mouth. Health (Depakene) 10:06: 250 MG/5ML 56 oral liquid polyethylen 2020-04 Yes 17g QD Take 17 g U T e glycol 2-29 by mouth 1 Healt h (Glycolax) 10:06: (one) time 17 GM/SCOOP 56 each day. powder senna 2020-04 Yes 1{tbl} QD Take 1 UT (Senokot) 2-29 tablet by Healt h 8.6 MG 10:06: mouth 1 tablet 56 (one) time each day. gabapentin 2020-04 Yes 400mg Q.[id number] Take 400 UT (Neurontin) 2-29 [id number] mg by H ealth 400 MG 10:06: 3D mouth 3 capsule 56 (three) times a day. mupirocin 2020-04 Yes Q.[id number] Apply U T (Bactroban) 2-29 [id number] topically Health 2 % 10:06: 3D 3 (three) ointment 56 times a day. docusate 2020-04 Yes 100mg Q.5D Take 100 UT sodium 2-29 mg by Health (Colace) 10:06: mouth 2 100 MG 56 (two) capsule times a day. cloBAZam 2020-04 Yes 10mg Q.5D Take 10 mg UT (Onfi) 2.5 2-29 by mouth Healt h mg/mL 10:06: twice a suspension 56 day. valproic 2020-04 Yes Take by UT acid 2-29 mouth. Health (Depakene) 10:06: 250 MG/5ML 56 oral liquid polyethylen 2020-04 Yes 17g QD Take 17 g U T e glycol 2-29 by mouth 1 Healt h (Glycolax) 10:06: (one) time 17 GM/SCOOP 56 each day. powder senna 2020-04 Yes 1{tbl} QD Take 1 UT (Senokot) 2-29 tablet by Healt h 8.6 MG 10:06: mouth 1 tablet 56 (one) time each day. gabapentin 2020-04 Yes 400mg Q.[id number] Take 400 UT (Neurontin) 2-29 [id number] mg by H ealth 400 MG 10:06: 3D mouth 3 capsule 56 (three) times a day. mupirocin 2020-04 Yes Q.[id number] Apply U T (Bactroban) 2-29 [id number] topically [facility] 2 % 10:06: 3D 3 (three) ointment 56 times a day. docusate 2020-04 Yes 100mg Q.5D Take 100 UT sodium 2-29 mg by Health (Colace) 10:06: mouth 2 100 MG 56 (two) capsule times a day. cloBAZam 2020-04 Yes 10mg Q.5D Take 10 mg UT (Onfi) 2.5 2-29 by mouth Healt h mg/mL 10:06: twice a suspension 56 day. valproic 2020-04 Yes Take by UT acid 2-29 mouth. Health (Depakene) 10:06: 250 MG/5ML 56 oral liquid polyethylen 2020-04 Yes 17g QD Take 17 g U T e glycol 2-29 by mouth 1 Healt h (Glycolax) 10:06: (one) time 17 GM/SCOOP 56 each day. powder senna 2020-04 Yes 1{tbl} QD Take 1 UT (Senokot) 2-29 tablet by Healt h 8.6 MG 10:06: mouth 1 tablet 56 (one) time each day. gabapentin 2020-04 Yes 400mg Q.[id number] Take 400 UT (Neurontin) 2-29 [id number] mg by H ealth 400 MG 10:06: 3D mouth 3 capsule 56 (three) times a day. mupirocin 2020-04 Yes Q.[id number] Apply U T (Bactroban) 2-29 [id number] topically Health 2 % 10:06: 3D 3 (three) ointment 56 times a day. docusate 2020-04 Yes 100mg Q.5D Take 100 UT sodium 2-29 mg by Health (Colace) 10:06: mouth 2 100 MG 56 (two) capsule times a day. cloBAZam 2020-04 Yes 10mg Q.5D Take 10 mg UT (Onfi) 2.5 2-29 by mouth Healt h mg/mL 10:06: twice a suspension 56 day. valproic 2020-04 Yes Take by UT acid 2-29 mouth. Health (Depakene) 10:06: 250 MG/5ML 56 oral liquid polyethylen 2020-04 Yes 17g QD Take 17 g U T e glycol 2-29 by mouth 1 Healt h (Glycolax) 10:06: (one) time 17 GM/SCOOP 56 each day. powder senna 2020-04 Yes 1{tbl} QD Take 1 UT (Senokot) 2-29 tablet by Healt h 8.6 MG 10:06: mouth 1 tablet 56 (one) time each day. gabapentin 2020-04 Yes 400mg Q.[id number] Take 400 UT (Neurontin) 2-29 [id number] mg by H ealth 400 MG 10:06: 3D mouth 3 capsule 56 (three) times a day. mupirocin 2020-04 Yes Q.[id number] Apply U T (Bactroban) 2-29 [id number] topically Health 2 % 10:06: 3D 3 (three) ointment 56 times a day. docusate 2020-04 Yes 100mg Q.5D Take 100 UT sodium 2-29 mg by Health (Colace) 10:06: mouth 2 100 MG 56 (two) capsule times a day. gabapentin 2020-04 Yes PO, Memoria 300 MG Oral 1-18 Q8H-06, 0 l Capsule 17:51: Refill(s) Brianna nn 00 Mupirocin 2020-04 Yes 1 appl, Memor ia 1-18 TOP, TID, l 17:51: 0 Duy 00 Refill(s) Valproic 2020-04 Yes 250 mg = 5 Mem oria Acid 50 1-18 mL, PO, l MG/ML Oral 17:51: Q6H, 0 Brianna nn Solution 00 Refill(s) acetaminoph 2020-04 Yes 1,000 mg = Memoria en 500 mg -18 2 tab, PO, l oral 17:50: Q6H, 0 Duy tablet. 00 Refill(s) Aluminum 2020-04 Yes 0 Memoria Hydroxide 1-18 Refill(s) l 40 MG/ML / 17:50: Duy Magnesium 00 Hydroxide 40 MG/ML / Simethicone 4 MG/ML Oral Suspension [Maalox Plus] Aspirin 2020-04 Yes 325 mg = 1 Dannie pat 1-18 tab, PO, l 17:50: Daily, 0 Duy 00 Refill(s) methylpheni 2020-04 Yes 20 mg = 1 M emoria date 20 mg 1-18 tab, PO, l oral tablet 17:49: TID, # 90 H ermann 00 tab, 0 Refill(s), Pharmacy: [facility], 162.56, cm, 02/28/21 20:13:00 CDT, Height, 72.727, kg, 02/28/21 20:13:00 CDT, Weight clobazam 10 2020-04 Yes 10 mg = 1 M emoria mg oral 1-18 tab, PO, l tablet 17:48: BID, # 60 Scottie n 00 tab, 1 Refill(s), Pharmacy: [facility], 162.56, cm, 02/28/21 20:13:00 CDT, Height, 72.727, kg, 02/28/21 20:13:00 CDT, Weight ondansetron 2020-04 No Route: IV, Memoria (ANES) 05-13 Drug form: l 15:09: INJ, ONCE, Duy 00 Stop date: 03/13/21 9:09:00 [employer] dexamethaso 2020-04 No Route: IV, Memoria ne (ANES) 1-16 Drug form: l 15:09: INJ, ONCE, Stop date: 03/13/21 9:09:00 [employer] glycopyrrol 2020-04 No Route: IV, Memoria ate (ANES) 1-16 Drug form: l 15:09: INJ, ONCE, Stop date: 03/13/21 9:09:00 [employer] neostigmine 2020-04 No Route: IV, Memoria (ANES) 1-16 Drug form: l 15:09: INJ, ONCE, Stop date: 03/13/21 9:09:00 [employer] Mupirocin 2020-04 No 1 appl, Memor ia -16 Route: l 15:00: TOP, TID, Drug form: OINT, Start date: 03/13/21 9:00:00 [employer], Duration: 30 day, Stop date: 04/11/21 17:00:00 [employer], 0 Fentanyl 2020-04 No Notes: Memoria 1-16 (Same as: l 14:56: Sublimaze) Preservat tomy free. Hydromorpho 2020-04 No Notes: Dannie pat ne 1-16 Same as l 14:56: Dilaudid Flumazenil 2020-04 No Notes: Memor ia 1-16 (Same as: l 14:56: Romazicon) Naloxone 2020-04 No Notes: Memoria 1-16 Same as l 14:56: Narcan Ondansetron 2020-04 No Notes: Dannie pat 1-16 (Same as: l 14:56: Zofran) MEDICATION WASTE Product Size: 4 mg Product Wasted: ___ mg Promethazin 2020-04 No Notes: Do M emoria e 1-16 not give l 14:56: IV push. (Same as: Phenergan) phenylephri 2020-04 No Route: IV, Memoria ne (ANES) 1-16 Drug form: l 14:44: INJ, ONCE, Stop date: 03/13/21 8:44:00 [employer] Cleocin 2020-04 No Route: IV, Dannie pat Phosphate 05-13 Drug form: l (ANES) 14:39: INJ, ONCE, Brianna nn Stop date: 03/13/21 8:39:00 [employer] propofol 2020-04 No Route: IV, Mem oria (ANES) 05-13 Drug form: l 14:29: INJ, ONCE, Duy Stop date: 03/13/21 8:29:00 [employer] rocuronium 2020-04 No Route: IV, M emoria (ANES) 05-13 Drug form: l 14:29: INJ, ONCE, Voltaire Stop date: 03/13/21 8:29:00 [employer] succinylcho 2020-04 No Route: IV, Memoria line (ANES) 05-13 Drug form: l 14:29: INJ, ONCE, [place] Stop date: 03/13/21 8:29:00 [employer] Isolyte S 2020-04 No Route: IV, Me moria PH 7.4 05-13 Total l (ANES) 1000 13:38: Volume: Her [place] mL 00 1,000, Start date: 03/13/21 7:38:00 [employer], Stop date: 03/13/21 8:38:00 [employer] Mupirocin 2020-04 No 1 appl, Memor ia 0.02 MG/MG 05-09 Route: l Topical 20:00: TOP, [place] Ointment 00 Daily, Drug form: OINT, Start date: 03/09/21 14:00:00 [employer], Duration: 30 day, Stop date: 04/08/21 9:00:00 [employer], 0 gabapentin 2020-04 No Notes: Memor ia 50 MG/ML - (Same as: l Oral 20:00: Neurontin) [place] Solution 00 tramadol 2020-04 No Notes: Not Mem oria hydrochlori -11 to exceed l de 50 MG 17:43: 400mg/day. Her [place] Oral Tablet 00 (Same As: Ultram) Maalox 2020-04 No Notes: Memoria Advanced 1-10 (aluminum l Regular 16:40: hydroxide- Herm shama Strength 00 magnesium SUSP hyd-simeth icone 200-200-20 mg/5ml 30 ml ud RENETTA) Methylpheni 2020-04 No Notes: Dannie pat date 05-06 (Same as l 21:30: :Ritalin) [place] 00 Acetaminoph 2020-04 No Notes: Max Memoria en 05-04 acetaminop l 18:00: hen 4000 Duy 00 mg/day (4 gm/day). (Same as: Tylenol Extra Strength) Oxycodone 2020-04 No Notes: Memori a 05-04 (Same as: l 15:54: Roxicodone ) Oxycodone 2020-04 No Notes: Memori a 05-04 (Same as: l 01:53: Roxicodone ) ondansetron 2020-04 No Route: IV, Memoria (ANES) 05-03 Drug form: l 16:06: INJ, ONCE, Stop date: 03/03/21 11:06:00 CDT ePHEDrine 2020-04 No Route: IV, Me moria (ANES) 05-03 Drug form: l 15:51: INJ, ONCE, Stop date: 03/03/21 10:51:00 CDT midazolam 2020-04 No Route: IV, Me moria (ANES) 05-03 Drug form: l 15:46: SOLN, Duy 00 ONCE, Stop date: 03/03/21 10:46:00 CDT lidocaine 2020-04 No Route: IV, Me moria (ANES) 05-03 Drug form: l 15:46: INJ, ONCE, Stop date: 03/03/21 10:46:00 CDT propofol 2020-04 No Route: IV, Mem oria (ANES) 05-03 Drug form: l 15:46: INJ, ONCE, Stop date: 03/03/21 10:46:00 CDT rocuronium 2020-04 No Route: IV, M emoria (ANES) 05-03 Drug form: l 15:46: INJ, ONCE, Stop date: 03/03/21 10:46:00 CDT fentaNYL 2020-04 No Route: IV, Mem oria (ANES) 05-03 Drug form: l 15:46: INJ, ONCE, Duy 00 Stop date: 03/03/21 10:46:00 CDT dexamethaso 2020-04 No Route: IV, Memoria ne (ANES) 05-03 Drug form: l 15:46: INJ, ONCE, Duy Stop date: 03/03/21 10:46:00 CDT phenylephri 2020-04 No Route: IV, Memoria ne (ANES) 05-03 Drug form: l 15:41: INJ, ONCE, Stop date: 03/03/21 10:41:00 CDT Acetaminoph 2020-04 No 1,000 mg, M emoria en 05-03 Route: l 15:21: IVPB, Drug form: INJ, ONCE, Dosing Weight 72.727, kg, PRN Pain Score 1-3, Start date: 03/03/21 10:21:00 CDT Oxycodone 2020-04 No 5 mg, Memoria Hydrochlori 05-03 Route: PO, l de 5 MG 15:21: Drug form: Herm shama Oral Tablet 00 TAB, Q4H, Dosing Weight 72.727, kg, PRN Pain Score 4-6, Start date: 03/03/21 10:21:00 CDT, Duration: 30 day, Stop date: 04/02/21 10:20:00 [employer] Hydromorpho 2020-04 No 0.5 mg, Mem oria ne 05-03 Route: l 15:21: IVP, [place] 00 Q5Min, Dosing Weight 72.727, kg, PRN Pain Score 7-10, Start date: 03/03/21 10:21:00 CDT, Duration: 4 doses or times, Stop date: Limited # of times Flumazenil 2020-04 No 0.2 mg, Dannie pat 05-03 Route: l 15:21: IVP, PRN, [place] 00 Dosing Weight 72.727, kg, PRN Benzodiaze pine Reversal, Initial dose, Start date: 03/03/21 10:21:00 CDT, Duration: 30 day, Stop date: 04/02/21 9:20:00 [employer] Naloxone 2020-04 No 0.4 mg, Memori a 05-03 Route: l 15:21: IVP, Duy 00 Q2MIN, Dosing Weight 72.727, kg, PRN Narcotic Reversal, Start date: 03/03/21 10:21:00 CDT, Duration: 8 doses or times, Stop date: Limited # of times Ondansetron 2020-04 No 4 mg, Memor ia 05-03 Route: l 15:21: IVP, ONCE, Dosing Weight 72.727, kg, PRN Nausea & Vomiting, Start date: 03/03/21 10:21:00 CDT Promethazin 2020-04 No 6.25 mg, Me moria e 05-03 Route: l 15:21: IVPB, Duy 00 ONCE, Dosing Weight 72.727, kg, PRN Nausea & Vomiting, Start date: 03/03/21 10:21:00 CDT Hydralazine 2020-04 No 10 mg, Dannie pat 05-03 Route: l 15:21: IVP, Duy 00 Q20Min, Dosing Weight 72.727, kg, PRN Elevated BP, Start date: 03/03/21 10:21:00 CDT, Duration: 2 doses or times, Stop date: Limited # of times Labetalol 2020-04 No 10 mg, Memori a 05-03 Route: l 15:21: IVP, Duy 00 Q5Min, Dosing Weight 72.727, kg, PRN Elevated BP, Start date: 03/03/21 10:21:00 CDT, Duration: 5 doses or times, Stop date: Limited # of times Ketorolac 2020-04 No 15 mg, Memori a 05-03 Route: l 15:21: IVP, ONCE, Dosing Weight 72.727, kg, Start date: 03/03/21 10:21:00 CDT, Stop date: 03/03/21 10:21:00 CDT Sodium 2020-04 No Route: IV, Memor ia Chloride 05-03 Drug form: l 0.9% IV 15:07: INJ, Start Herm shama (ANES) 94 00 date: mL + 03/03/21 clindamycin 10:07:00 (ANES) 900 CDT, Stop mg date: 03/03/21 11:07:00 CDT Lactated 2020-04 No Route: IV, Mem oria Ringers 1-06 Total l Injection 14:43: Volume: Brianna nn IV (ANES) 00 1,000, 1000 mL Start date: 03/03/21 9:43:00 CDT, Stop date: 03/03/21 10:43:00 CDT Sodium 2020-04 No 1,000 mL, Memori a Chloride 05-01 Rate: 75 l 0.9% IV 20:18: ml/hr, Duy 1,000 mL 00 Infuse over: 13.3 hr, Route: IV, Dosing Weight 72.727 kg, Total Volume: 1,000, Start date: 03/01/21 15:18:00 CDT, Duration: 30 day, Stop date: 03/31/21 15:17:00 [employer], BSA: 1.83 m2, 0 clobazam 10 2020-04 No 10 mg = 1 M emoria mg oral 1-04 tab, PO, l tablet 15:27: BID, # 60 Scottie n 00 tab lisinopril 2020-04 No 20 mg = 1 Me moria 20 mg oral 1-04 tab, PO, l tablet 15:26: Daily, # Voltaire 00 90 tab, 0 Refill(s) metoprolol 2020-04 No 25 mg = 1 Me moria tartrate 25 1-04 tab, PO, l mg oral 15:26: BID, # 180 Herm shama tablet 00 tab, 0 Refill(s) Divalproex 2020-04 No 500 mg = 1 M emoria Sodium 500 1-04 tab, PO, l MG Enteric 15:25: BID, # 180 H ermann Coated 00 tab, 0 Tablet Refill(s) methylpheni 2020-04 No 20 mg = 1 M emoria date 20 mg 1-04 tab, PO, l oral tablet 15:24: TID, # 60 H ermann 00 tab, 0 Refill(s) Docusate 2020-04 Yes 1 tab, PO, Mem oria Sodium 50 1-04 BID, PRN l MG / 15:22: Constipati Duy sennosides, 00 on, 0 [facility] 8.6 MG Refill(s) Oral Tablet Aspirin 2020-04 No 325 mg, 1 Memor ia 1-04 tab, l 14:00: Route: GT, Vol[place] 00 Drug form: TAB, Daily, Dosing Weight 70.455, kg, Start date: 03/01/21 9:00:00 CDT, Duration: 30 day, Stop date: 03/30/21 9:00:00 [employer], 0 clobazam 2020-04 No Notes: Memoria - (Same as: l 14:00: Onfi) reserved for Neurology use only Methylpheni 2020-04 No Notes: Dannie pat date 05-01 (Same as l 14:00: :Ritalin) Valproate 2020-04 No 250 mg, 5 Mem oria -04 mL, Route: l 05:00: GT, Drug form: SYRP, Q6H, Dosing Weight 70.455, kg, Start date: 03/01/21 0:00:00 CDT, Duration: 30 day, Stop date: 03/31/21 4:00:00 [employer], 0 gabapentin 2020-04 No Notes: Memor ia 50 MG/ML 05-01 (Same as: l Oral 03:00: Neurontin) Duy Solution 00 Docusate 2020-04 No 1 tab, Memoria Sodium 50 05-01 Route: GT, l MG / 02:00: Drug Form: Duy sennosides, 00 TAB, [facility] 8.6 MG Dosing Oral Tablet Weight 70.455, kg, Q12H, Start date: 02/28/21 21:00:00 CDT, Duration: 30 day, Stop date: 03/30/21 9:00:00 [employer], 0 Lovenox 2020-04 No Notes: Memoria -04 (Same as: l 01:00: Lovenox) Duy Acetaminoph 2020-04 No Notes: Max Memoria en 04-30 acetaminop l 23:38: hen 4000 [place] mg/day (4 gm/day). (Same as: Tylenol Extra Strength) Dextrose 2020-04 No 12.5 gm, Memor ia 50% Syringe 04-30 25 mL, l (D50W) 23:36: Route: [place] 00 IVP, Drug Form: INJ, Dosing Weight 70.455, kg, PRN, PRN Blood Glucose Results, Start date: 02/28/21 18:36:00 CDT, Duration: 30 day, Stop date: 03/30/21 17:35:00 [employer], 0 Glucagon 2020-04 No 1 mg, Memoria 04-30 Route: IM, l 23:36: Drug form: Duy 00 PDR/INJ, PRN, Dosing Weight 70.455, kg, PRN Blood Glucose Results, Start date: 02/28/21 18:36:00 CDT, Duration: 30 day, Stop date: 03/30/21 17:35:00 [employer], 0 Valproic Yes 250 mg = 5 Mem oria Acid 50 - mL, GT, l MG/ML Oral 20:33: Q6H, 0 Brianna nn Solution 00 Refill(s) acetaminoph Yes 1,000 mg = Memoria en 500 mg 01-23 2 tab, GT, l oral 20:32: Q6Hnow, Duy tablet. 00 PRN pain, 0 Refill(s) Docusate Yes 1 tab, GT, Mem oria Sodium 50 01-23 Q12H, 0 l MG / 20:32: Refill(s) [place] sennosides, 00 [facility] 8.6 MG Oral Tablet gabapentin Yes 400 mg = 8 M emoria 50 MG/ML 01-23 mL, GT, l Oral 20:32: Q8H-06, 0 [place] Solution 00 Refill(s) Aspirin Yes 325 mg = 1 Dannie pat 01-23 tab, GT, l 20:31: Daily, 0 Duy 00 Refill(s) clobazam Yes 10 mg = 4 Dannie pat 2.5 mg/mL 01-23 mL, GT, l oral 20:31: BID, 0 [place] suspension 00 Refill(s) methylpheni Yes 20 mg = 4 M emoria date 5 mg 01-23 tab, GT, l oral tablet 20:31: BID, 0 Herm shama 00 Refill(s) D5W 1/2NS No 1,000 mL, Mem oria 1,000 mL 01-22 Rate: 75 l 20:09: ml/hr, Duy 00 Infuse over: 13.3 hr, Route: IV, Dosing Weight 68.182 kg, Total Volume: 1,000, Priority: NOW, Start date: 01/22/21 15:09:00 CDT, Duration: 1 doses or times, Stop date: 01/23/21 4:26:00 CDT, BSA: 1.77 m2, 0 Oxycodone No Notes: Memori a Hydrochlori 01-22 (Same l de 1 MG/ML 20:08: as:'Roxico H erm Oral 00 done) To Solution be drawn up in 3 mL syr Lidocaine No 1 %, Memoria 01-22 Route: l 16:25: SUB-Q, ONCE, Dosing Weight 68.182, kg, Start date: 01/22/21 11:25:00 CDT, Stop date: 01/22/21 11:25:00 CDT Fentanyl No Notes: Memoria 01-22 (Same as: l 16:25: Sublimaze) Preservat tomy free. Midazolam No Notes: Memori a 01-22 (Same as: l 16:25: Versed) MEDICATION WASTE Product Size: 2 mg Product Wasted: ___ mg Glucagon No 1 mg, Memoria 01-22 Route: IV, l 16:25: ONCE, Dosing Weight 68.182, kg, Start date: 01/22/21 11:25:00 CDT, Stop date: 01/22/21 11:25:00 CDT Beneprotein No Notes: Dannie pat 7 gm pkt 01-20 (Same as: l 22:00: Beneprotei n) Vancomycin No 2000 mg: Me moria 01-19 infuse l 22:00: over 2.5 hours For adult patients only: Round to nearest 250 mg per Medical Staff approval MEDICATION WASTE Product Size: 1000 mg Product Wasted: ___ mg D5W 1,000 No 1,000 mL, Mem oria mL 01-19 Rate: 75 l 20:24: ml/hr, Infuse over: 13.3 hr, Route: IV, Dosing Weight 68.182 kg, Total Volume: 1,000, Priority: NOW, Start date: 01/19/21 15:24:00 CDT, Duration: 1 doses or times, Stop date: 01/20/21 4:41:00 CDT, BSA: 1.77 m2, 0 Lactated No 1,000 mL, Dannie pat Ringers IV 01-18 Rate: 75 l 1,000 mL 21:57: ml/hr, Infuse over: 13.3 hr, Route: IV, Dosing Weight 68.182 kg, Total Volume: 1,000, Priority: NOW, Start date: 01/18/21 16:57:00 CDT, Duration: 1 doses or times, Stop date: 01/19/21 6:14:00 CDT, BSA: 1.77 m2, 0 gabapentin No 300 mg, 6 Me moria 50 MG/ML 9-22 mL, Route: l Oral 19:00: PO, [place] Solution 00 Q8H-06, Dosing Weight 68.182, kg, Start date: 01/17/21 14:00:00 CDT, Duration: 30 day, Stop date: 02/16/21 6:00:00 CDT Lovenox No Notes: Memoria 01-16 (Same as: l 13:00: Lovenox) glycopyrrol No Route: IV, Memoria ate (ANES) 01-15 Drug form: l 19:26: INJ, ONCE, Stop date: 01/15/21 14:26:00 CDT neostigmine No Route: IV, Memoria (ANES) 01-15 Drug form: l 19:26: INJ, ONCE, Stop date: 01/15/21 14:26:00 CDT ondansetron No Route: IV, Memoria (ANES) 01-15 Drug form: l 19:20: INJ, ONCE, Duy 00 Stop date: 01/15/21 14:20:00 CDT lidocaine No Route: IV, Me moria (ANES) 01-15 Drug form: l 18:50: INJ, ONCE, Duy 00 Stop date: 01/15/21 13:50:00 CDT propofol No Route: IV, Mem oria (ANES) 01-15 Drug form: l 18:50: INJ, ONCE, Stop date: 01/15/21 13:50:00 CDT rocuronium No Route: IV, M emoria (ANES) 01-15 Drug form: l 18:50: INJ, ONCE, Stop date: 01/15/21 13:50:00 CDT fentaNYL No Route: IV, Mem oria (ANES) 01-15 Drug form: l 18:50: INJ, ONCE, Stop date: 01/15/21 13:50:00 CDT phenylephri No Route: IV, Memoria ne (ANES) 01-15 Drug form: l 18:50: INJ, ONCE, Stop date: 01/15/21 13:50:00 CDT Fentanyl No Notes: Memoria - (Same as: l 17:52: Sublimaze) Preservat tomy free. Hydromorpho No Notes: Dannie pat ne 01-15 Same as l 17:52: Dilaudid Flumazenil No Notes: Memor ia - (Same as: l 17:52: Romazicon) Naloxone No Notes: Memoria 01-15 Same as l 17:52: Narcan Ondansetron No Notes: Dannie pat - (Same as: l 17:52: Zofran) MEDICATION WASTE Product Size: 4 mg Product Wasted: ___ mg Promethazin No Notes: Do M emoria e 01-15 not give l 17:52: IV push. (Same as: Phenergan) D5W 1,000 No 1,000 mL, Mem oria mL 01-15 Rate: 999 l 11:29: ml/hr, Infuse over: 1 hr, Route: IV, Dosing Weight 68.182 kg, Total Volume: 1,000, Priority: STAT, Start date: 01/15/21 6:29:00 CDT, Duration: 1 doses or times, Stop date: 01/15/21 7:28:00 CDT, BSA: 1.77 m2, 0 Vancomycin No 2000 mg: Me moria 9-19 infuse l 03:00: over 2.5 Duy 00 hours heparin No Notes: Memoria additive -19 Total l 25,000 unit 02:53: Concentrat [place] [14 00 ion = 50 unit/kg/hr] unit/ ml + Premix Total Diluent volume = Sodium 500 ml Chloride Send Med 0.45% 500 Request 2 mL hours prior to next bag POLYETHYLEN No Notes: Dannie pat E GLYCOL 9-18 Dissolve l [id number] 22:00: in 8 oz of [place] 00 water or juice. (Same as: Miralax) Tramadol No Notes: Not Mem oria 9-18 to exceed l 17:43: 400mg/day. Duy 00 (Same As: Ultram) Oxycodone No Notes: Memori a -18 (Same as: l 17:43: Roxicodone [place] 00 ) Kayexalate No Notes: Memor ia -18 (sodium l 16:23: polystyren Duy 00 e sulfonate 15 gm/60 ml RENETTA) (Same as: Kayexalate , SPS) Vancomycin No 2000 mg: Me moria 9-18 infuse l 14:00: over 2.5 [place] 00 hours For adult patients only: Round to nearest 250 mg per Medical Staff approval MEDICATION WASTE Product Size: 1000 mg Product Wasted: ___ mg Vancomycin No Notes: Memor ia -18 Vancomycin l 11:42: Pharmacy Duy 58 Dosing Protocol PHARMAC Y USE ONLY Note: This is not a medication order. This is a consultati on order. Unasyn No Notes: Memoria 9-18 Dosing l 05:00: based on Duy 00 Ampicillin component (Same as: Unasyn) POLYETHYLEN No Notes: Dannie pat E GLYCOL 9-16 Dissolve l 3350 14:00: in 8 oz of Duy 00 water or juice. (Same as: Miralax) Kayexalate No Notes: Memor ia 9-16 (sodium l 08:15: polystyren Duy 00 e sulfonate 15 gm/60 ml RENETTA) Shake well before use. (Same as: Kayexalate , SPS) Lovenox No Notes: Memoria -15 (Same as: l 09:00: Lovenox) Methylpheni No Notes: Dannie pat date 01-09 (Same l 13:00: as:Ritalin ) Aspirin No Notes: Memoria 01-08 Take with l 20:47: food. Acetaminoph No Notes: Max Memoria en 01-08 acetaminop l 17:00: hen 4000 mg/day (4 gm/day). (Same as: Tylenol Extra Strength) Valproate No Notes: Memori a 01-08 (Same As: l 17:00: Depakene) Hazardous Drug Group 3:Reproduc tive risk Hazardous Drug -- Refer to safe handling procedure PPE Matrix Docusate No Notes: Memoria Sodium 50 01-08 (Same as l MG / 14:00: Senokot-S) sennosides, 00 Equiv. to [facility] 8.6 MG [place] Oral Tablet e. clobazam No Notes: Memoria 01-08 (Same as: l 14:00: Onfi) reserved for Neurology use only POLYETHYLEN No Notes: Dannie pat E GLYCOL 01-08 Dissolve l [id number] 14:00: in 8 oz of water or juice. (Same as: Miralax) Methylpheni No Notes: Dannie pat date 01-08 (Same l 14:00: as:Ritalin ) gabapentin No Notes: Memor ia 01-08 (Same as: l 14:00: Neurontin) Methylpheni No Notes: Dannie pat date 01-06 (Same l 14:00: as:Ritalin ) gabapentin No Notes: Memor ia 01-06 (Same as: l 13:00: Neurontin) Robaxin No Notes: Memoria 9-11 (Same l 05:00: as:Robaxin ) Tramadol No 50 mg, Memoria 9-11 Route: PO, l 05:00: Drug form: Duy 00 TAB, Q6H, Dosing Weight 68.182, kg, Start date: 01/06/21 0:00:00 CDT, Duration: 30 day, Stop date: 02/04/21 18:00:00 CDT Naproxen No 500 mg, Memori a 9-11 Route: GT, l 02:00: Q12H, Dosing Weight 68.182, kg, Start date: 01/05/21 21:00:00 CDT, Duration: 30 day, Stop date: 02/04/21 9:00:00 CDT Tramadol No Notes: Not Mem oria 9-11 to exceed l 01:47: 400mg/day. (Same As: Ultram) gabapentin No Notes: Memor ia 9-11 (Same as: l 00:00: Neurontin) Isolyte S No Notes: Memori a PH-7.4 9-10 (Same as: l (Bolus) IV 23:16: Isolyte S He PH7.4, Normosol-R PH 7.4, Plasma-Lyt e A ) Robaxin No Notes: Memoria 9-10 (Same l 21:00: as:Robaxin ) Aspirin No 325 mg, Memoria 9-10 Route: MI, l 18:00: Drug form: [place] 00 TAB, Q24H, Dosing Weight 68.182, kg, Start date: 01/05/21 13:00:00 CDT, Duration: 30 day, Stop date: 02/03/21 13:00:00 CDT, 0 Aspirin No Notes: Memoria 9-10 Take with l 15:00: food. Naproxen No Notes: Memoria 9-10 (Same as: l 14:58: Naprosyn) Take with food. Robaxin No Notes: Memoria 9-10 (Same l 13:00: as:Robaxin ) gabapentin No Notes: Memor ia 10 (Same as: l 12:00: Neurontin) Aspirin No 325 mg, Memoria 9- Route: PO, l 12:00: Q24H, Dosing Weight 68.182, kg, Start date: 01/05/21 7:00:00 CDT, Duration: 30 day, Stop date: 02/03/21 7:00:00 CDT Aspirin No 325 mg, Memoria 01-05 Route: PO, l 11:36: Drug form: TAB, Q24H, Dosing Weight 68.182, kg, Priority: NOW, Start date: 01/05/21 6:36:00 CDT, Duration: 30 day, Stop date: 02/03/21 6:36:00 CDT ondansetron No Route: IV, Memoria (ANES) 01-04 Drug form: l 23:46: INJ, ONCE, Stop date: 01/04/21 18:46:00 CDT rocuronium No Route: IV, M emoria (ANES) 01-04 Drug form: l 22:24: INJ, ONCE, Stop date: 01/04/21 17:24:00 CDT propofol No Route: IV, Mem oria (ANES) 01-04 Drug form: l 21:43: INJ, ONCE, Stop date: 01/04/21 16:43:00 CDT Lactated No Route: IV, Mem oria Ringers 01-04 Total l Injection 21:37: Volume: Brianna nn IV (ANES) 00 1,000, 1000 mL Start date: 01/04/21 16:37:00 CDT, Stop date: 01/04/21 17:37:00 CDT acetaminoph No Route: IV, Memoria en (ANES) 01-04 Drug form: l 10 mg 21:10: INJ, Start Scottie n date: 01/04/21 16:10:00 CDT, Stop date: 01/04/21 17:10:00 CDT heparin No Notes: Memoria additive 01-04 Total l 25,000 unit 20:34: Concentrat Voltaire [14 00 ion = 50 unit/kg/hr] unit/ ml + Premix Total Diluent volume = Sodium 500 ml Chloride Send Med 0.45% 500 Request 2 mL hours prior to next bag Heparin 60 No Pharmacy Mem oria unit/kg 01-04 To Manage, l Bolus 20:18: Route: Voltaire (Heparin 00 IVP, PRN, Dosing Drug form: Weight) INJ, PRN Heparin Protocol, Start date: 01/04/21 15:18:00 CDT, Stop date: 02/03/21 15:17:00 CDT, 30 day Heparin 30 No Pharmacy Mem oria unit/kg 01-04 To Manage, l Bolus 20:18: Route: Duy (Heparin 00 IVP, PRN, Dosing Drug form: Weight) INJ, PRN Heparin Protocol, Start date: 01/04/21 15:18:00 CDT, Stop date: 02/03/21 15:17:00 CDT, 30 day heparin No 500 mL, Memoria additive 01-04 Rate: l 25,000 unit 20:18: 16.36 Brianna nn [12 00 ml/hr, unit/kg/hr] Infuse + Premix over: 30.6 Diluent hr, Route: Sodium IV, Dosing Chloride Weight 0.45% 500 68.182 kg, mL Total Volume: 500 mL, Start date: 01/04/21 15:18:00 CDT, Duration: 30 day, Stop date: 02/03/21 15:17:00 CDT, BSA: 1.77 m2 Heparin - No 3,600 Memoria one time 01-04 unit, l bolus for 20:17: Route: Scottie n ACS 00 IVP, Drug form: INJ, ONCE, Dosing Weight 68.182, kg, Priority: STAT, Start date: 01/04/21 15:17:00 CDT, Stop date: 01/04/21 15:17:00 CDT Sodium No Route: IV, Memor ia Chloride 01-04 Total l 0.9% IV 18:50: Volume: Duy (ANES) 500 00 500, Start mL date: 01/04/21 13:50:00 CDT, Stop date: 01/04/21 14:50:00 CDT dexamethaso No Route: IV, Memoria ne (ANES) 01-04 Drug form: l 18:33: INJ, ONCE, Stop date: 01/04/21 13:33:00 CDT fentaNYL No Route: IV, Mem oria (ANES) 01-04 Drug form: l 18:18: INJ, ONCE, Stop date: 01/04/21 13:18:00 CDT midazolam No Route: IV, Me moria (ANES) 01-04 Drug form: l 18:13: SOLN, ONCE, Stop date: 01/04/21 13:13:00 CDT phenylephri No Route: IV, Memoria ne (ANES) 01-04 Drug form: l 18:13: INJ, ONCE, Stop date: 01/04/21 13:13:00 CDT ceFAZolin No Route: IV, Me moria (ANES) 01-04 Drug form: l 17:47: INJ, ONCE, Stop date: 01/04/21 12:47:00 CDT heparin No Route: IV, Dannie pat (ANES) 01-04 Dosing l [id number] unit 17:30: Weight Brianna nn + Sodium 00 68.2 kg, Chloride Total 0.45% IV Volume: (ANES) 500 500, Start mL date: 01/04/21 12:30:00 CDT, Stop date: 01/04/21 13:30:00 CDT ocular No Notes: Memoria lubricant 01-04 (Same as: l 17:00: Lacri-Lube Duy 00 , Puralube, Duratears Naturale, Artificial Tears, and Tears Again ) Isolyte S No Route: IV, Me moria PH 7.4 01-04 Total l (ANES) 1000 16:39: Volume: Her [place] mL 00 1,000, Start date: 01/04/21 11:39:00 CDT, Stop date: 01/04/21 12:39:00 CDT Ancef + No Notes: Memoria sterile 01-04 (Same As: l water 10 mL 16:00: Ancef, Herm shama 00 Kefzol) MEDICATION WASTE Product Size: 1000 mg Product Wasted: ___ mg Docusate No Notes: Memoria Sodium 50 01-04 (Same as l MG / 14:00: Senokot-S) Voltaire sennosides, 00 Equiv. to [facility] 8.6 MG [place] Oral Tablet e. POLYETHYLEN No Notes: Dannie pat E GLYCOL 01-04 Dissolve l 3350 14:00: in 8 oz of Duy 00 water or juice. (Same as: Miralax) Famotidine No Notes: Memor ia 01-04 (Same as: l 14:00: Pepcid) Duy 00 Can be dilute in 5-10cc NS IVP: Slow IV push over at least 2 minutes. chlorhexidi No Notes: Dannie pat ne 01-04 (Same As: l gluconate 14:00: Peridex) Herm shama 1.2 MG/ML 00 Mouthwash chlorhexidi No Notes: Dannie pat ne 01-04 (Same As: l gluconate 12:48: Peridex) Herm shama 1.2 MG/ML 00 Mouthwash propofol 10 No Notes: If M emoria mg/mL 01-04 Diprivan - l (Titrate.) 12:04: change Brianna nn IV 1,000 mg 00 bottle & tubing every 12 hr Per state nursing law propofol can only be given by a nurse if patient is intubated or being intubated (unless the nurse is a STE[employer]ITTER SUPERVISOR). Same as: Diprivan Insulin No Notes: Memoria regular 01-04 (Same as: l 11:45: Humulin R) Voltaire 00 Roll in palms of hands gently; Do not shake vigorously . WASTE: F/P - Black; E - Municipal Trash Bin Stable for 31 days at room temperatur e Expires in days from ____Date Dextrose No 12.5 gm, Memor ia 50% Syringe 01-04 25 mL, l (D50W) 11:45: Route: IVP, Drug Form: INJ, Dosing Weight 68.182, kg, PRN, PRN Abnormal Lab Result, Start date: 01/04/21 6:45:00 CDT, Duration: 30 day, Stop date: 02/03/21 6:44:00 CDT, For FSBG 40 mg/dL - 60 mg/dL, 0 dexmedetomi No Route: IV, Memoria dine (ANES) 01-04 Drug form: l 10:26: INJ, ONCE, Stop date: 01/04/21 5:26:00 CDT Cefazolin No Notes: Memori a 01-04 (Same As: l 10:10: Ancef, Kefzol) MEDICATION WASTE Product Size: 1000 mg Product Wasted: ___ mg ondansetron No Route: IV, Memoria (ANES) 01-04 Drug form: l 09:49: INJ, ONCE, Stop date: 01/04/21 4:49:00 CDT Ofirmev No Notes: Memoria 01-04 Infuse l 06:50: over 15 minutes Do not exceed 4gm/day of acetaminop hen MEDICATION WASTE Product Size: 1000 mg Product Wasted: ___ mg propofol No Route: IV, Mem oria (ANES) 01-04 Drug form: l 03:37: INJ, ONCE, Stop date: 01/03/21 22:37:00 CDT heparin No Route: IV, Dannie pat (ANES) 01-04 Dosing l [address] unit 02:14: Weight Brianna nn + Sodium 00 68.2 kg, Chloride Total 0.45% IV Volume: (ANES) 500 500, Start mL date: 01/03/21 21:14:00 CDT, Stop date: 01/03/21 22:14:00 CDT phenylephri No Route: IV, Memoria ne (ANES) 01-04 Drug form: l 00:03: INJ, ONCE, Stop date: 01/03/21 19:03:00 CDT ceFAZolin No Route: IV, Me moria (ANES) 01-03 Drug form: l 23:58: INJ, ONCE, Duy 00 Stop date: 01/03/21 18:58:00 CDT heparin No Notes: Memoria additive 01-03 Total l 25,000 unit 23:26: Concentrat Duy [14 00 ion = 50 unit/kg/hr] unit/ ml + Premix Total Diluent volume = Sodium 500 ml Chloride Send Med 0.45% 500 Request 2 mL hours prior to next bag acetaminoph No Route: IV, Memoria en (ANES) 01-03 Drug form: l 10 mg 23:21: INJ, Start Scottie n date: 01/03/21 18:21:00 CDT, Stop date: 01/03/21 19:21:00 CDT hydromorpho No Route: IV, Memoria ne (ANES) 01-03 Drug form: l 23:06: INJ, ONCE, Stop date: 01/03/21 18:06:00 CDT Hydralazine No Notes: Dannie pat 01-03 (Same as: l 21:59: Apresoline ) Push over 5 minutes Labetalol No 10 mg, 2 Dannie pat 01-03 mL, Route: l 21:59: IVP, Drug form: INJ, Q5Min, Dosing Weight 68.182, kg, PRN Elevated BP, Start date: 01/03/21 16:59:00 CDT, Duration: 5 doses or times, Stop date: 01/04/21 0:00:00 CDT, 0 Oxycodone No Notes: Memori a Hydrochlori 01-03 (Same as: l de 5 MG 21:59: Roxicodone Herm shama Oral Tablet ) Fentanyl No Notes: Memoria 01-03 (Same as: l 21:59: Sublimaze) Preservat tomy free. Hydromorpho No Notes: Dannie pat ne 01-03 Same as l 21:59: Dilaudid Flumazenil No Notes: Memor ia 01-03 (Same as: l 21:59: Romazicon) Naloxone No Notes: Memoria 01-03 Same as l 21:59: Narcan Ondansetron No Notes: Dannie pat 01-03 (Same as: l 21:59: Zofran) MEDICATION WASTE Product Size: 4 mg Product Wasted: ___ mg hydromorpho No Route: IV, Memoria ne (ANES) 01-03 Drug form: l 15:23: INJ, ONCE, Stop date: 01/03/21 10:23:00 CDT fentaNYL No Route: IV, Mem oria (ANES) 01-03 Drug form: l 15:07: INJ, ONCE, Stop date: 01/03/21 10:07:00 CDT phenylephri No Route: IV, Memoria ne (ANES) 01-03 Drug form: l 15:07: INJ, ONCE, Stop date: 01/03/21 10:07:00 CDT midazolam No Route: IV, Me moria (ANES) 01-03 Drug form: l 14:57: SOLN, 00 ONCE, Stop date: 01/03/21 9:57:00 CDT lidocaine No Route: IV, Me moria (ANES) 01-03 Drug form: l 14:57: INJ, ONCE, Stop date: 01/03/21 9:57:00 CDT propofol No Route: IV, Mem oria (ANES) 01-03 Drug form: l 14:57: INJ, ONCE, Stop date: 01/03/21 9:57:00 CDT succinylcho No Route: IV, Memoria line (ANES) 01-03 Drug form: l 14:57: INJ, ONCE, Stop date: 01/03/21 9:57:00 CDT Sodium No Route: IV, Memor ia Chloride 01-03 Total l 0.9% IV 14:50: Volume: Duy (ANES) 500 00 500, Start mL date: 01/03/21 9:50:00 CDT, Stop date: 01/03/21 10:50:00 CDT dexmedetomi No Route: IV, Memoria dine (ANES) 01-03 Drug form: l 200 14:50: INJ, Start Voltaire microgram 00 date: 01/03/21 9:50:00 CDT, Stop date: 01/03/21 10:50:00 CDT ceFAZolin No Route: IV, moria (ANES) 01-03 Drug form: l 14:31: INJ, ONCE, Duy Stop date: 01/03/21 9:31:00 CDT heparin No Notes: Memoria additive 01-03 Total l 25,000 unit 14:05: Concentrat Duy [700 00 ion = 50 unit/hr] + unit/ ml Premix Total Diluent volume = Sodium 500 ml Chloride Send Med 0.45% 500 Request 2 mL hours prior to next bag dexamethaso No Route: IV, Memoria ne (ANES) 01-03 Drug form: l 14:01: INJ, ONCE, Duy 00 Stop date: 01/03/21 9:01:00 CDT Lactated No Route: IV, Mem oria Ringers -08 Total l Injection 14:00: Volume: Brianna nn IV (ANES) 00 1,000, 1000 mL Start date: 01/03/21 9:00:00 CDT, Stop date: 01/03/21 10:00:00 CDT Lactated No Route: IV, Mem oria Ringers 01-03 Total l Injection 12:45: Volume: Brianna nn IV (ANES) 00 1,000, 1000 mL Start date: 01/03/21 7:45:00 CDT, Stop date: 01/03/21 8:45:00 CDT Isolyte S No Notes: Memori a PH 7.4 01-03 (Same as: l 1,000 mL 05:01: Isolyte S Herm shama 00 PH7.4, Normosol-R PH 7.4, Plasma-Lyt e A ) clobazam No Notes: Memoria 01-02 (Same as: l 14:00: Onfi) Duy 00 reserved for Neurology use only NS (Bolus) No 1,000 mL, Me moria IV 01-01 1,000 l 13:17: ml/hr, Infuse Over: 1 hr, Route: IV, 1,000, Drug form: INJ, ONCE, Priority: STAT, Dosing Weight 68.182 kg, Start date: 01/01/21 8:17:00 CDT, Stop date: 01/01/21 8:17:00 CDT, 0 Petrolatum No Notes: Memor ia 0.41 MG/MG 12-30 (Same as: l Topical 14:31: Aquaphor) Brianna nn Ointment 00 [Aquaphor] Aquaphor No Notes: Memoria 12-30 (Same as: l 12:52: Aquaphor) Duy Potassium No Notes: Memori a Chloride 12-28 (Same as: l 13:32: Potassium Chloride) Potassium No Notes: Memori a Chloride 12-27 (Same as: l 13:06: Potassium Chloride) Dulcolax No Notes: Memoria Laxative 12-27 (Same As: l 02:15: Dulcolax, Bisco-Lax) PlasmaLyte No Notes: Memor ia A PH-7.4 12-27 (Same as: l 1,000 mL 00:47: Isolyte S Herm PH7.4, Normosol-R PH 7.4, Plasma-Lyt e A ) esmolol No Route: IV, Dannie pat (ANES) 12-25 Drug form: l 18:14: INJ, ONCE, Stop date: 12/25/20 13:14:00 CDT ondansetron No Route: IV, Memoria (ANES) 12-25 Drug form: l 18:09: INJ, ONCE, Stop date: 12/25/20 13:09:00 CDT glycopyrrol No Route: IV, Memoria ate (ANES) 12-25 Drug form: l 18:09: INJ, ONCE, Stop date: 12/25/20 13:09:00 CDT neostigmine No Route: IV, Memoria (ANES) 12-25 Drug form: l 18:09: INJ, ONCE, Stop date: 12/25/20 13:09:00 CDT Oxycodone No Notes: Memori a Hydrochlori 12-25 (Same as: l de 5 MG 16:31: Roxicodone Herm shama Oral Tablet ) Hydromorpho No Notes: Dannie pat ne 12-25 Same as l 16:31: Dilaudid Flumazenil No Notes: Memor ia 12-25 (Same as: l 16:31: Romazicon) Naloxone No Notes: Memoria 12-25 Same as l 16:31: Narcan Ondansetron No Notes: Dannie pat 12-25 (Same as: l 16:31: Zofran) MEDICATION WASTE Product Size: 4 mg Product Wasted: ___ mg acetaminoph No Route: IV, Memoria en (ANES) 12-25 Drug form: l 10 mg 16:10: INJ, Start Scottie n date: 12/25/20 11:10:00 CDT, Stop date: 12/25/20 12:10:00 CDT phenylephri No Route: IV, Memoria ne (ANES) 12-25 Drug form: l 16:07: INJ, ONCE, Stop date: 12/25/20 11:07:00 CDT propofol No Route: IV, Mem oria (ANES) 12-25 Drug form: l 15:17: INJ, ONCE, Stop date: 12/25/20 10:17:00 CDT succinylcho No Route: IV, Memoria line (ANES) 12-25 Drug form: l 15:17: INJ, ONCE, Stop date: 12/25/20 10:17:00 CDT fentaNYL No Route: IV, Mem oria (ANES) 12-25 Drug form: l 15:17: INJ, ONCE, Stop date: 12/25/20 10:17:00 CDT rocuronium No Route: IV, M emoria (ANES) 12-25 Drug form: l 15:06: INJ, ONCE, Stop date: 12/25/20 10:06:00 CDT ceFAZolin No Route: IV, Me moria (ANES) 12-25 Drug form: l 15:06: INJ, ONCE, Stop date: 12/25/20 10:06:00 CDT hydrocortis No Route: IV, Memoria one (ANES) 12-25 Drug form: l 15:06: INJ, ONCE, Stop date: 12/25/20 10:06:00 CDT phenylephri No Route: IV, Memoria ne (ANES) 12-25 Drug form: l 15:06: INJ, ONCE, Stop date: 12/25/20 10:06:00 CDT Isolyte S No Route: IV, Me moria PH 7.4 12-25 Total l (ANES) 500 15:00: Volume: Herm shama mL 00 500, Start date: 12/25/20 10:00:00 CDT, Stop date: 12/25/20 11:00:00 CDT midazolam No Route: IV, Me moria (ANES) 12-25 Drug form: l 14:40: SOLN, ONCE, Stop date: 12/25/20 9:40:00 CDT Sodium No Route: IV, Memor ia Chloride 12-25 Drug form: l 0.9% IV 14:30: INJ, Start Herm shama (ANES) 99 00 date: mL + 12/25/20 phenylephri 9:30:00 ne (ANES) CDT, Stop 100 date: microgram 12/25/20 10:30:00 CDT Blistex No Notes: Memoria topical 12-23 Same as: l ointment 22:00: Blistex Scottie n 00 Valproate No Notes: Memori a 12-23 (Same As: l 14:00: Depakene) Hazardous Drug Group 3:Reproduc tive risk Hazardous Drug -- Refer to safe handling procedure PPE Matrix PlasmaLyte No Notes: Memor ia A PH-7.4 12-23 (Same as: l 1,000 mL 09:45: Isolyte S Herm PH7.4, Normosol-R PH 7.4, Plasma-Lyt e A ) Unasyn No Notes: Memoria 12-23 Dosing l 01:00: based on Ampicillin component (Same as: Unasyn) vasopressin No Route: IV, Memoria (ANES) 12-22 Drug form: l 23:44: INJ, ONCE, Stop date: 12/22/20 18:44:00 CDT glycopyrrol No Route: IV, Memoria ate (ANES) 12-22 Drug form: l 23:34: INJ, ONCE, Stop date: 12/22/20 18:34:00 CDT neostigmine No Route: IV, Memoria (ANES) 12-22 Drug form: l 23:34: INJ, ONCE, Stop date: 12/22/20 18:34:00 CDT ePHEDrine No Route: IV, Me moria (ANES) 12-22 Drug form: l 23:29: INJ, ONCE, Stop date: 12/22/20 18:29:00 CDT ondansetron No Route: IV, Memoria (ANES) 12-22 Drug form: l 23:13: INJ, ONCE, Stop date: 12/22/20 18:13:00 CDT ceFAZolin No Route: IV, Me moria (ANES) 12-22 Drug form: l 23:13: INJ, ONCE, Stop date: 12/22/20 18:13:00 CDT hydromorpho No Route: IV, Memoria ne (ANES) + 12-22 Drug form: l sodium 22:47: INJ, ONCE, nn chloride Stop date: (ANES) 9 mL 12/22/20 17:47:00 CDT rocuronium No Route: IV, M emoria (ANES) 12-22 Drug form: l 22:27: INJ, ONCE, Duy Stop date: 12/22/20 17:27:00 CDT dexamethaso No Route: IV, Memoria ne (ANES) 12-22 Drug form: l 20:47: INJ, ONCE, Duy 00 Stop date: 12/22/20 15:47:00 CDT phenylephri No Route: IV, Memoria ne (ANES) + 12-22 Drug form: l Sodium 20:37: INJ, ONCE, Brianna nn Chloride Stop date: 0.9% IV 12/22/20 (ANES) 99 15:37:00 mL CDT rocuronium No Route: IV, M emoria (ANES) 12-22 Drug form: l 20:27: INJ, ONCE, Voltaire Stop date: 12/22/20 15:27:00 CDT hydromorpho No Route: IV, Memoria ne (ANES) + 12-22 Drug form: l sodium 18:06: INJ, ONCE, Brianna nn chloride Stop date: (ANES) 9 mL 12/22/20 13:06:00 CDT Isolyte S No Route: IV, Me moria PH 7.4 12-22 Total l (ANES) 1000 16:59: Volume: Her [place] mL 00 1,000, Start date: 12/22/20 11:59:00 CDT, Stop date: 12/22/20 12:59:00 CDT acetaminoph No Route: IV, Memoria en (ANES) 12-22 Drug form: l 10 mg 16:26: INJ, Start Scottie n 00 date: 12/22/20 11:26:00 CDT, Stop date: 12/22/20 12:26:00 CDT midazolam No Route: IV, Me moria (ANES) 12-22 Drug form: l 15:28: SOLN, Voltaire 00 ONCE, Stop date: 12/22/20 10:28:00 CDT phenylephri No Route: IV, Memoria ne (ANES) + 12-22 Drug form: l Sodium 15:28: INJ, ONCE, Brianna nn Chloride 00 Stop date: 0.9% IV 12/22/20 (ANES) 99 10:28:00 mL CDT Hydralazine No Notes: Dannie pat 12-22 (Same as: l 15:07: Apresoline Duy ) Push over 5 minutes esmolol No Notes: Memoria 12-22 (Same as: l 15:07: Brevibloc) Labetalol No 10 mg, 2 Dannie pat 12-22 mL, Route: l 15:07: IVP, Drug form: INJ, Q5Min, Dosing Weight 68.182, kg, PRN Elevated BP, Start date: 12/22/20 10:07:00 CDT, Duration: 5 doses or times, Stop date: 12/23/20 0:00:00 CDT, 0 Acetaminoph No Notes: Max Memoria en 12-22 acetaminop l 15:07: hen 4000 Duy 00 mg/day (4 gm/day). (Same as: Tylenol Extra Strength) Oxycodone No Notes: Memori a Hydrochlori 12-22 (Same as: l de 5 MG 15:07: Roxicodone Herm shama Oral Tablet ) Hydromorpho No Notes: Dannie pat ne 12-22 Same as l 15:07: Dilaudid Voltaire 00 Flumazenil No Notes: Memor ia 12-22 (Same as: l 15:07: Romazicon) Naloxone No Notes: Memoria 12-22 Same as l 15:07: Narcan Duy 00 Ondansetron No Notes: Dannie pat 12-22 (Same as: l 15:07: Zofran) Duy MEDICATION WASTE Product Size: 4 mg Product Wasted: ___ mg lidocaine No Route: IV, Me moria (ANES) 12-22 Drug form: l 14:47: INJ, ONCE, Duy 00 Stop date: 12/22/20 9:47:00 CDT propofol No Route: IV, Mem oria (ANES) 12-22 Drug form: l 14:47: INJ, ONCE, Stop date: 12/22/20 9:47:00 CDT fentaNYL No Route: IV, Mem oria (ANES) 12-22 Drug form: l 14:47: INJ, ONCE, Stop date: 12/22/20 9:47:00 CDT vasopressin No Route: IV, Memoria (ANES) 12-22 Drug form: l 14:47: INJ, ONCE, Stop date: 12/22/20 9:47:00 CDT ePHEDrine No Route: IV, Me moria (ANES) 12-22 Drug form: l 14:47: INJ, ONCE, Stop date: 12/22/20 9:47:00 CDT Sodium No Route: IV, Memor ia Chloride 12-22 Drug form: l 0.9% IV 14:40: INJ, Start Herm shama (ANES) date: mL + 12/22/20 phenylephri 9:40:00 ne (ANES) CDT, Stop 100 date: microgram 12/22/20 10:40:00 CDT phenylephri No Route: IV, Memoria ne (ANES) 12-22 Drug form: l 14:36: INJ, ONCE, Stop date: 12/22/20 9:36:00 CDT rocuronium No Route: IV, M emoria (ANES) 12-22 Drug form: l 14:21: INJ, ONCE, Stop date: 12/22/20 9:21:00 CDT ceFAZolin No Route: IV, Me moria (ANES) 12-22 Drug form: l 14:21: INJ, ONCE, Stop date: 12/22/20 9:21:00 CDT Lactated No Route: IV, Mem oria Ringers 12-22 Total l Injection 13:30: Volume: Brianna nn IV (ANES) 00 500, Start 500 mL date: 12/22/20 8:30:00 CDT, Stop date: 12/22/20 9:30:00 CDT Lactated No Route: IV, Mem oria Ringers 12-22 Total l Injection 13:05: Volume: Brianna nn IV (ANES) 00 1,000, 1000 mL Start date: 12/22/20 8:05:00 CDT, Stop date: 12/22/20 9:05:00 CDT Lovenox No Notes: Memoria 12-21 (Same as: l 21:00: Lovenox) Dulcolax No Notes: Memoria Laxative 12-20 (Same As: l 20:42: Dulcolax, Bisco-Lax) Lovenox No Notes: Memoria 12-20 (Same as: l 19:00: Lovenox) sugammadex No Route: IV, M emoria (ANES) 12-19 Drug form: l 14:00: SOLN, ONCE, Stop date: 12/19/20 9:00:00 CDT lidocaine No Route: IV, Me moria (ANES) 12-19 Drug form: l 13:55: INJ, ONCE, Stop date: 12/19/20 8:55:00 CDT propofol No Route: IV, Mem oria (ANES) 12-19 Drug form: l 13:55: INJ, ONCE, Stop date: 12/19/20 8:55:00 CDT rocuronium No Route: IV, M emoria (ANES) 12-19 Drug form: l 13:55: INJ, ONCE, Stop date: 12/19/20 8:55:00 CDT fentaNYL No Route: IV, Mem oria (ANES) 12-19 Drug form: l 13:55: INJ, ONCE, Stop date: 12/19/20 8:55:00 CDT ondansetron No Route: IV, Memoria (ANES) 12-19 Drug form: l 13:55: INJ, ONCE, Stop date: 12/19/20 8:55:00 CDT dexamethaso No Route: IV, Memoria ne (ANES) 12-19 Drug form: l 13:30: INJ, ONCE, Voltaire Stop date: 12/19/20 8:30:00 CDT phenylephri No Route: IV, Memoria ne (ANES) 12-19 Drug form: l 13:19: INJ, ONCE, Duy 00 Stop date: 12/19/20 8:19:00 CDT Acetaminoph No Notes: Max Memoria en 12-19 acetaminop l 13:19: hen 4000 mg/day (4 gm/day). (Same as: Tylenol Extra Strength) Oxycodone No Notes: Memori a Hydrochlori 12-19 (Same as: l de 5 MG 13:19: Roxicodone shama Oral Tablet ) Hydromorpho No Notes: Dannie pat ne 12-19 Same as l 13:19: Dilaudid Flumazenil No Notes: Memor ia 12-19 (Same as: l 13:19: Romazicon) Naloxone No Notes: Memoria 12-19 Same as l 13:19: Narcan Ondansetron No Notes: Dannie pat 12-19 (Same as: l 13:19: Zofran) MEDICATION WASTE Product Size: 4 mg Product Wasted: ___ mg Methocarbam No Notes: Dannie pat ol 12-19 (Same l 13:19: as:Robaxin ) Lactated No Route: IV, Mem oria Ringers 12-19 Total l Injection 12:40: Volume: Brianna nn IV (ANES) 00 1,000, 1000 mL Start date: 12/19/20 7:40:00 CDT, Stop date: 12/19/20 8:40:00 CDT Potassium No Notes: Memori a Chloride 12-18 (Same as: l 20:09: K-Dur 20) "Do Not Crush" Give with food and full glass of water For patients unable to swallow tablet, dissolve in one half glass of water. Allow about 2 minutes for the tablets to disintegra te. Stir before giving to prepare slurry and administer . Please exclude Patient s with feeding tube less than 14 English (Dobhoff, J-tube etc) and pediatric and patients. tamsulosin No Notes: Memor ia 12-18 (Same As: l 20:05: Flomax) "Do Not Crush" sennosides, No Notes: Dannie pat [facility] 12-17 (Same as: l 02:00: Senokot) POLYETHYLEN No Notes: Dannie pat E GLYCOL 12-16 Dissolve l 3350 14:00: in 8 oz of water or juice. (Same as: Miralax) clobazam No Notes: Memoria 12-16 (Same as: l 14:00: Onfi) reserved for Neurology use only 24 HR No Notes: Memoria Divalproex 12-16 Hazardous l Sodium 500 14:00: Drug Group H ermann MG Extended 00 2:Non-anti Release neoplastic Tablet Hazardous Drug -- Refer to safe handling procedure PPE Matrix (Same as: Depakote ER) Once daily dosing; indicated for migraines. Divalproe x sodium extended-r elease tab. Do not chew or crush. Methylpheni No Notes: Dannie pat date 12-16 (Same l 14:00: as:Ritalin ) Dilaudid No Notes: Memoria 12-16 Same as l 12:52: Dilaudid Aspirin 81 Yes Notes: Do Me moria MG Enteric 12-16 not crush l Coated 11:00: or chew. Voltaire Tablet (Same As: Ecotrin) Aspirin No Notes: Memoria 12-16 Take with l 11:00: food. PlasmaLyte No Notes: Memor ia A PH-7.4 12-16 (Same as: l 500 mL 10:05: Isolyte S Scottie n 00 PH7.4, Normosol-R PH 7.4, Plasma-Lyt e A ) Acetaminoph No Notes: Max Memoria en 12-16 acetaminop l 06:00: hen 4000 Duy 00 mg/day (4 gm/day). (Same as: Tylenol Extra Strength) gabapentin No Notes: Memor ia 12-16 (Same as: l 06:00: Neurontin) Oxycodone No Notes: Memori a Hydrochlori 12-16 (Same as: l de 5 MG 06:00: Roxicodone Herm shama Oral Tablet ) Naloxone No Notes: Memoria 12-16 Same as l 06:00: Narcan heparin No Notes: Memoria additive 12-16 Total l 25,000 unit 05:38: Concentrat Duy [500 00 ion = 50 unit/hr] + unit/ ml Premix Total Diluent volume = Sodium 500 ml Chloride Send Med 0.45% 500 Request 2 mL hours prior to next bag Unasyn No Notes: Memoria 12-16 Dosing l 05:00: based on Ampicillin component (Same as: Unasyn) Dextrose No 12.5 gm, Memor ia 50% Syringe 12-16 25 mL, l (D50W) 04:32: Route: Voltaire 00 IVP, Drug Form: INJ, Dosing Weight 68.1, kg, PRN, PRN Blood Glucose Results, Start date: 12/15/20 23:32:00 CDT, Duration: 30 day, Stop date: 01/14/21 23:31:00 CDT, 0 Glucagon No 1 mg, Memoria 12-16 Route: IM, l 04:32: Drug form: Duy 00 PDR/INJ, PRN, Dosing Weight 68.1, kg, PRN Blood Glucose Results, Start date: 12/15/20 23:32:00 CDT, Duration: 30 day, Stop date: 01/14/21 23:31:00 CDT, 0 Ondansetron No Notes: Dannie pat 12-16 (Same as: l 04:32: Zofran) MEDICATION WASTE Product Size: 4 mg Product Wasted: ___ mg Phenergan No Notes: Do Mem oria 12-16 not give l 01:03: IV push. (Same as: Phenergan) ondansetron No Route: IV, Memoria (ANES) 8- Drug form: l 23:43: INJ, ONCE, Voltaire 00 Stop date: 12/15/20 18:43:00 CDT sugammadex No Route: IV, M emoria (ANES) 8- Drug form: l 23:38: SOLN, Voltaire 00 ONCE, Stop date: 12/15/20 18:38:00 CDT heparin No Notes: Memoria additive 8- Total l 25,000 unit 22:19: Concentrat Duy [7.5 00 ion = 50 unit/kg/hr] unit/ ml + Premix Total Diluent volume = Sodium 500 ml Chloride Send Med 0.45% 500 Request 2 mL hours prior to next bag heparin No Route: IV, Dannie pat (ANES) - Drug form: l 22:01: INJ, ONCE, Stop date: 12/15/20 17:01:00 CDT calcium No Route: IV, Dannie pat chloride - Drug form: l (ANES) 21:20: INJ, ONCE, Brianna Stop date: 12/15/20 16:20:00 CDT Isolyte S No Route: IV, Me moria PH 7.4 8- Total l (ANES) 500 19:55: Volume: Herm shama mL 00 500, Start date: 12/15/20 14:55:00 CDT, Stop date: 12/15/20 15:55:00 CDT acetaminoph No Route: IV, Memoria en (ANES) 8- Drug form: l 18:52: INJ, ONCE, Duy 00 Stop date: 12/15/20 13:52:00 CDT hydromorpho No Route: IV, Memoria ne (ANES) 8-20 Drug form: l 16:53: INJ, ONCE, Duy 00 Stop date: 12/15/20 11:53:00 CDT Hydralazine No 10 mg, Dannie pat 8- Route: l 16:20: IVP, Duy 00 Q20Min, Dosing Weight 68.1, kg, PRN Elevated BP, Start date: 12/15/20 11:20:00 CDT, Duration: 2 doses or times, Stop date: Limited # of times Labetalol 2020-0 No 10 mg, Memori a 12-15 Route: l 16:20: IVP, Voltaire 00 Q5Min, Dosing Weight 68.1, kg, PRN Elevated BP, Start date: 12/15/20 11:20:00 CDT, Duration: 5 doses or times, Stop date: Limited # of times Acetaminoph 2020-0 No 1,000 mg, M emoria en 12-15 Route: PO, l 16:20: Drug form: Duy 00 TAB, ONCE, Dosing Weight 68.1, kg, PRN Pain Score 1-3, Start date: 12/15/20 11:20:00 CDT Oxycodone 2020-0 No 5 mg, Memoria Hydrochlori 12-15 Route: PO, l de 5 MG 16:20: Drug form: Herm shama Oral Tablet 00 TAB, Q4H, Dosing Weight 68.1, kg, PRN Pain Score 4-6, Start date: 12/15/20 11:20:00 CDT, Duration: 30 day, Stop date: 01/14/21 11:19:00 CDT Hydromorpho 2020-0 No 0.5 mg, Mem oria ne 12-15 Route: l 16:20: IVP, [place] 00 Q5Min, Dosing Weight 68.1, kg, PRN Pain Score 7-10, Start date: 12/15/20 11:20:00 CDT, Duration: 4 doses or times, Stop date: Limited # of times Flumazenil 2020-0 No 0.2 mg, Dannie pat 12-15 Route: l 16:20: IVP, PRN, [place] 00 Dosing Weight 68.1, kg, PRN Benzodiaze pine Reversal, Initial dose, Start date: 12/15/20 11:20:00 CDT, Duration: 30 day, Stop date: 01/14/21 11:19:00 CDT Naloxone 2020-0 No 0.4 mg, Memori a 12-15 Route: l 16:20: IVP, [place] 00 Q2MIN, Dosing Weight 68.1, kg, PRN Narcotic Reversal, Start date: 12/15/20 11:20:00 CDT, Duration: 8 doses or times, Stop date: Limited # of times Ondansetron No 4 mg, Memor ia 12-15 Route: l 16:20: IVP, ONCE, Dosing Weight 68.1, kg, PRN Nausea & Vomiting, Start date: 12/15/20 11:20:00 CDT Methocarbam No 1,000 mg, M emoria ol 12-15 Route: IV, l 16:20: ONCE, Dosing Weight 68.1, kg, Start date: 12/15/20 11:20:00 CDT, Stop date: 12/15/20 11:20:00 CDT Sodium No 250 mL, Memoria Chloride 12-15 Rate: To l 0.9% 16:12: prime line Duy (titrate) 00 and flush 250 mL remaining blood products., Dosing Weight 68.1, kg, Route: IV, Total Volume: 250, Start Date: 12/15/20 11:12:00 CDT, Duration: 1 day, Stop date: 12/16/20 11:11:00 CDT, Replace Every: 24 hr, 0 glycopyrrol No Route: IV, Memoria ate (ANES) 12-15 Drug form: l 15:12: INJ, ONCE, Stop date: 12/15/20 10:12:00 CDT dexamethaso No Route: IV, Memoria ne (ANES) 12-15 Drug form: l 15:07: INJ, ONCE, Stop date: 12/15/20 10:07:00 CDT Sodium No Route: IV, Memor ia Chloride 12-15 Total l 0.9% IV 14:32: Volume: Duy (ANES) 500 00 500, Start mL date: 12/15/20 9:32:00 CDT, Stop date: 12/15/20 10:32:00 CDT ePHEDrine No Route: IV, Me moria (ANES) 12-15 Drug form: l 14:26: INJ, ONCE, Stop date: 12/15/20 9:26:00 CDT ceFAZolin No Route: IV, Me moria (ANES) 8-20 Drug form: l 14:26: INJ, ONCE, Stop date: 12/15/20 9:26:00 CDT lidocaine No Route: IV, Me moria (ANES) 8-20 Drug form: l 14:01: INJ, ONCE, Stop date: 12/15/20 9:01:00 CDT propofol No Route: IV, Mem oria (ANES) 8 Drug form: l 14:01: INJ, ONCE, Stop date: 12/15/20 9:01:00 CDT rocuronium No Route: IV, M emoria (ANES) 8- Drug form: l 14:01: INJ, ONCE, Stop date: 12/15/20 9:01:00 CDT fentaNYL No Route: IV, Mem oria (ANES) 8- Drug form: l 14:01: INJ, ONCE, Stop date: 12/15/20 9:01:00 CDT phenylephri No Route: IV, Memoria ne (ANES) 12-15 Drug form: l 14:01: INJ, ONCE, Stop date: 12/15/20 9:01:00 CDT Lactated No Route: IV, Mem oria Ringers 8-20 Total l Injection 12:40: Volume: Brianna nn IV (ANES) 00 1,000, 1000 mL Start date: 12/15/20 7:40:00 CDT, Stop date: 12/15/20 8:40:00 CDT Isolyte S No Notes: Memori a PH 7.4 8-20 (Same as: l 1,000 mL 11:48: Isolyte S Herm shama 00 PH7.4, Normosol-R PH 7.4, Plasma-Lyt e A ) Acetaminoph No 1,000 mg, M emoria en 12-15 Route: PO, l 11:48: Drug form: [place] 00 TAB, PRE OP, Dosing Weight 68.182, kg, Priority: NOW, Start date: 12/15/20 6:48:00 CDT, Duration: 1 doses or times metoprolol No 25 mg = 1 Me moria tartrate 25 8-18 tab, PO, l mg oral 16:53: BID, 0 [place] tablet 00 Refill(s) lisinopril No 20 mg = 1 Me moria 20 mg oral 8-18 tab, PO, l tablet 16:51: Daily, 0 [place] 00 Refill(s) No known No No known [facility] medications 8-11 medication He alth 14:00: s 34 methylpheni Yes [id number] TAKE 1 [facility] date HCl 6- TABLET BY ity of (RITALIN) 00:00: MOUTH [place] 20 mg 00 THREE Medical tablet TIMES [facility] DAILY methylpheni 0 2021- No [id number] TAKE 1 [facility] date HCl 6-28 01-07 TABLET BY [facility] o f (RITALIN) 00:00: 00:00 MOUTH [place] 20 mg 00 :00 THREE Medical tablet TIMES [facility] DAILY valproic Yes Take by [facility] acid 6-02 mouth. [facility] (Depakene) 19:01: 250 MG/5ML 06 oral liquid valproic 2020-0 Yes Take by [facility] acid 6-02 mouth. Health (Depakene) 19:01: 250 MG/5ML 06 oral liquid valproic 2020-0 Yes Take by [facility] acid 6-02 mouth. Health (Depakene) 19:01: 250 MG/5ML 06 oral liquid valproic 2020-0 Yes Take by [facility] acid 6-02 mouth. Health (Depakene) 19:01: 250 MG/5ML 06 oral liquid cloBAZam 0 Yes 10mg Q.5D Take 10 mg [facility] (Onfi) 2.5 6-02 by mouth Healt h mg/mL 19:01: twice a suspension 05 day. cloBAZam 2020-0 Yes 10mg Q.5D Take 10 mg [facility] (On[facility]) 2.5 6-02 by mouth [facility]alt [facility] mg/mL 19:01: twice a suspension 05 day. cloBAZam 2020-0 Yes 10mg Q.5D Take 10 mg [facility] (Onfi) 2.5 6-02 by mouth [facility]alt [facility] mg/mL 19:01: twice a suspension 05 day. cloBAZam 2021-0 Yes 10mg Q.5D Take 10 mg [facility] (Onfi) 2.5 6-02 by mouth Healt [facility] mg/mL 19:01: twice a suspension 05 day. valproic 2021-0 Yes Take by [facility] acid 6-02 mouth. Health (Depakene) 14:01: 250 MG/5ML 06 oral liquid valproic 2021-0 Yes Take by [facility] acid 6-02 mouth. Health (Depakene) 14:01: 250 MG/5ML 06 oral liquid valproic 2021-0 Yes Take by [facility] acid 6-02 mouth. Health (Depakene) 14:01: 250 MG/5ML 06 oral liquid valproic 2021-0 Yes Take by [facility] acid 6-02 mouth. Health (Depakene) 14:01: 250 MG/5ML 06 oral liquid valproic 2021-0 Yes Take by [facility] acid 6-02 mouth. Health (Depakene) 14:01: 250 MG/5ML 06 oral liquid valproic 2021-0 Yes Take by [facility] acid 6-02 mouth. Health (Depakene) 14:01: 250 MG/5ML 06 oral liquid valproic 2021-0 Yes Take by [facility] acid 6-02 mouth. Health (Depakene) 14:01: 250 MG/5ML 06 oral liquid valproic 2021-0 Yes Take by [facility] acid 6-02 mouth. Health (Depakene) 14:01: 250 MG/5ML 06 oral liquid valproic 2021-0 Yes Take by [facility] acid 6-02 mouth. Health (Depakene) 14:01: 250 MG/5ML 06 oral liquid valproic 2021-0 Yes Take by [facility] acid 6-02 mouth. Health (Depakene) 14:01: 250 MG/5ML 06 oral liquid valproic 2021-0 Yes Take by [facility] acid 6-02 mouth. Health (Depakene) 14:01: 250 MG/5ML 06 oral liquid valproic 2021-0 Yes Take by [facility] acid 6-02 mouth. Health (Depakene) 14:01: 250 MG/5ML 06 oral liquid valproic 2021-0 Yes Take by [facility] acid 6-02 mouth. Health (Depakene) 14:01: 250 MG/5ML 06 oral liquid valproic 2021-0 Yes Take by [facility] acid 6-02 mouth. Health (Depakene) 14:01: 250 MG/5ML 06 oral liquid valproic 1-0 Yes Take by [facility] acid 6-02 mouth. Health (Depakene) 14:01: 250 MG/5ML 06 oral liquid valproic 1-0 Yes Take by [facility] acid 6-02 mouth. Health (Depakene) 14:01: 250 MG/5ML 06 oral liquid cloBAZam 2021-0 Yes 10mg Q.5D Take 10 mg [facility] (Onfi) 2.5 6-02 by mouth Healt h mg/mL 14:01: twice a suspension 05 day. cloBAZam 2021-0 Yes 10mg Q.5D Take 10 mg [facility] (Onfi) 2.5 6-02 by mouth Healt h mg/mL 14:01: twice a suspension 05 day. cloBAZam 2021-0 Yes 10mg Q.5D Take 10 mg [facility] (Onfi) 2.5 6-02 by mouth Healt h mg/mL 14:01: twice a suspension 05 day. cloBAZam 2021-0 Yes 10mg Q.5D Take 10 mg [facility] (Onfi) 2.5 6-02 by mouth Healt h mg/mL 14:01: twice a suspension 05 day. cloBAZam 2021-0 Yes 10mg Q.5D Take 10 mg [facility] (Onfi) 2.5 6-02 by mouth Healt h mg/mL 14:01: twice a suspension 05 day. cloBAZam 2021-0 Yes 10mg Q.5D Take 10 mg [facility] (Onfi) 2.5 6-02 by mouth Healt h mg/mL 14:01: twice a suspension 05 day. cloBAZam 2021-0 Yes 10mg Q.5D Take 10 mg [facility] (Onfi) 2.5 6-02 by mouth Healt h mg/mL 14:01: twice a suspension 05 day. cloBAZam 2021-0 Yes 10mg Q.5D Take 10 mg [facility] (Onfi) 2.5 6-02 by mouth Healt h mg/mL 14:01: twice a suspension 05 day. cloBAZam 2021-0 Yes 10mg Q.5D Take 10 mg [facility] (Onfi) 2.5 6-02 by mouth Healt h mg/mL 14:01: twice a suspension 05 day. cloBAZam 2021-0 Yes 10mg Q.5D Take 10 mg [facility] (Onfi) 2.5 6-02 by mouth Healt h mg/mL 14:01: twice a suspension 05 day. cloBAZam 2021-0 Yes 10mg Q.5D Take 10 mg [facility] (Onfi) 2.5 6-02 by mouth Healt h mg/mL 14:01: twice a suspension 05 day. cloBAZam 2021-0 Yes 10mg Q.5D Take 10 mg [facility] (Onfi) 2.5 6-02 by mouth Healt h mg/mL 14:01: twice a suspension 05 day. cloBAZam 2021-0 Yes 10mg Q.5D Take 10 mg [facility] (Onfi) 2.5 6-02 by mouth Healt h mg/mL 14:01: twice a suspension 05 day. cloBAZam 2021-0 Yes 10mg Q.5D Take 10 mg [facility] (Onfi) 2.5 6-02 by mouth Healt h mg/mL 14:01: twice a suspension 05 day. cloBAZam 2021-0 Yes 10mg Q.5D Take 10 mg [facility] (Onfi) 2.5 6-02 by mouth Healt h mg/mL 14:01: twice a suspension 05 day. cloBAZam 2021-0 Yes 10mg Q.5D Take 10 mg [facility] (Onfi) 2.5 6-02 by mouth Healt h mg/mL 14:01: twice a suspension 05 day. Mupirocin 2020-0 Yes 1 appl, Memor ia 0.02 MG/MG 5- TOP, l Topical 15:59: Daily, X 7 Herm shama Ointment 00 day, # 22 [Bactroban] gm, 0 Refill(s), Pharmacy: [facility] 256, 162.56, cm, 09/15/20 23:50:00 CDT, Height, 54.545, kg, 09/15/20 23:50:00 CDT, Weight clobazam 10 2020-0 Yes 10 mg = 1 M emoria mg oral 5-28 tab, PO, l tablet 15:52: BID, 0 [place] 00 Refill(s) Aspirin 81 2020-0 Yes 81 mg = 1 Me moria MG Enteric 5-28 tab, PO, l Coated 15:52: Daily, 0 [place] Tablet 00 Refill(s) fluconazole Yes 400 mg = Me moria 400 mg/200 5-28 200 mL, l mL-NaCl 15:52: IV, Daily, Herm shama 0.9% 00 0 intravenous Refill(s) solution Hydrocortis Yes 1 apply, Me moria one 25 5-28 TOP, TID, l MG/ML 15:52: # 59 mL, 0 Scottie n Topical 00 Refill(s), Lotion Pharmacy: [facility] 256, 162.56, cm, 09/15/20 23:50:00 CDT, Height, 54.545, kg, 09/15/20 23:50:00 CDT, Weight meropenem Yes 500 mg, Memor ia 500 mg 5-28 IVPB, l intravenous 15:52: [id number], 0 H ermann injection 00 Refill(s) metoprolol Yes 50 mg = 1 Me moria tartrate 50 5-28 tab, PO, l mg oral 15:51: BID, # 60 Brianna nn tablet 00 tab, 1 Refill(s), Pharmacy: [facility] 256, 162.56, cm, 09/15/20 23:50:00 CDT, Height, 54.545, kg, 09/15/20 23:50:00 CDT, Weight methylpheni Yes 20 mg = 2 M emoria date 10 mg 5-28 tab, PO, l oral tablet 15:51: BID, 0 Herm shama 00 Refill(s) losartan 50 Yes 50 mg = 1 M emoria mg oral 5-28 tab, PO, l tablet 15:51: Daily, 0 [place] 00 Refill(s) 24 HR Yes 500 mg = 1 Memori a Divalproex 5-28 tab, PO, l Sodium 500 15:51: Q12H, 0 Herm shama MG Extended 00 Refill(s) Release Tablet metoprolol Yes [facility] tartrate 5-28 Health (Lopressor) 00:00: 50 MG 00 tablet metoprolol Yes [facility] tartrate 5-28 Health (Lopressor) 00:00: 50 MG 00 tablet metoprolol 1-0 Yes [facility] tartrate 5-28 Health (Lopressor) 00:00: 50 MG 00 tablet metoprolol 2021-0 Yes [facility] tartrate 5-28 Health (Lopressor) 00:00: 50 MG 00 tablet metoprolol 2021-0 Yes [facility] tartrate 5-28 Health (Lopressor) 00:00: 50 MG 00 tablet metoprolol 1-0 Yes [facility] tartrate 5-28 Health (Lopressor) 00:00: 50 MG 00 tablet metoprolol 2021-0 Yes [facility] tartrate 5-28 Health (Lopressor) 00:00: 50 MG 00 tablet metoprolol 1-0 Yes [facility] tartrate 5-28 Health (Lopressor) 00:00: 50 MG 00 tablet metoprolol 1-0 Yes [facility] tartrate 5-28 Health (Lopressor) 00:00: 50 MG 00 tablet metoprolol 1-0 Yes [facility] tartrate 5-28 Health (Lopressor) 00:00: 50 MG 00 tablet metoprolol 1-0 Yes [facility] tartrate 5-28 Health (Lopressor) 00:00: 50 MG 00 tablet metoprolol 1-0 Yes [facility] tartrate 5-28 Health (Lopressor) 00:00: 50 MG 00 tablet metoprolol 1-0 Yes [facility] tartrate 5-28 Health (Lopressor) 00:00: 50 MG 00 tablet metoprolol 1-0 Yes [facility] tartrate 5-28 Health (Lopressor) 00:00: 50 MG 00 tablet metoprolol 1-0 Yes [facility] tartrate 5-28 Health (Lopressor) 00:00: 50 MG 00 tablet metoprolol 1-0 Yes [facility] tartrate 5-28 Health (Lopressor) 00:00: 50 MG 00 tablet metoprolol 1-0 Yes [facility] tartrate 5-28 Health (Lopressor) 00:00: 50 MG 00 tablet metoprolol 2021-0 Yes [facility] tartrate 5-28 Health (Lopressor) 00:00: 50 MG 00 tablet metoprolol 2021-0 Yes [facility] tartrate 5-28 Health (Lopressor) 00:00: 50 MG 00 tablet metoprolol 2021-0 Yes [facility] tartrate 5-28 Health (Lopressor) 00:00: 50 MG 00 tablet metoprolol 2021-0 Yes [facility] tartrate 5-28 Health (Lopressor) 00:00: 50 MG 00 tablet metoprolol 2020-0 Yes [facility] tartrate 5-28 Health (Lopressor) 00:00: 50 MG 00 tablet metoprolol 2020-0 Yes [facility] tartrate 5-28 Health (Lopressor) 00:00: 50 MG 00 tablet metoprolol 2020-0 Yes [facility] tartrate 5-28 Health (Lopressor) 00:00: 50 MG 00 tablet metoprolol 2020-0 Yes [facility] tartrate 5-28 Health (Lopressor) 00:00: 50 MG 00 tablet metoprolol 2020-0 Yes [facility] tartrate 5-28 Health (Lopressor) 00:00: 50 MG 00 tablet metoprolol 2020-0 Yes [facility] tartrate 5-28 Health (Lopressor) 00:00: 50 MG 00 tablet metoprolol 2020-0 Yes [facility] tartrate 5-28 Health (Lopressor) 00:00: 50 MG 00 tablet metoprolol 2020-0 Yes [facility] tartrate 5-28 Health (Lopressor) 00:00: 50 MG 00 tablet metoprolol 2020-0 Yes [facility] tartrate 5-28 Health (Lopressor) 00:00: 50 MG 00 tablet metoprolol 2020-0 Yes [facility] tartrate 5-28 Health (Lopressor) 00:00: 50 MG 00 tablet Hydrocortis No Route: Dnanie pat one 25 5-27 TOP, TID, l MG/ML 14:00: Drug form: Scottie n Topical 00 CRM, Start Lotion date: 09/21/20 9:00:00 CDT, Duration: 30 day, Stop date: 10/20/20 17:00:00 CDT, 0 meropenem No Notes: Memori a 5-27 Same as l 04:00: Merrem Hydralazine No 10 mg, Dannie pat 5-25 Route: IV, l 17:58: [id number], [place] 00 Dosing Weight 54.545, kg, PRN Hypertensi on, Start date: 09/19/20 12:58:00 CDT, Duration: 30 day, Stop date: 10/19/20 12:57:00 CDT Ceftriaxone No Notes: Dannie pat 5-25 (Same As: l 13:00: Rocephin). Use with 100 mL NS and infuse over 30 min MEDICATION WASTE Product Size: 2000 mg Product Wasted: ___ mg Diflucan No Notes: Memoria 09-18 (Same as: l 20:00: Diflucan) Hazardous Drug Group 3:Reproduc tive risk Hazardous Drug -- Refer to safe handling procedure PPE Matrix Methylpheni No Notes: Dannie pat date 09-18 (Same as l 18:45: :Ritalin) Diphenhydra No 1 appl, Mem oria mine 09-18 Route: l Hydrochlori 00:13: TOP, QID, H ermann de 20 MG/ML 00 Drug form: / Zinc CRM, PRN Acetate 1 Rash, MG/ML Start Topical date: Cream 09/17/20 [Banophen 19:13:00 Cream] CDT, Duration: 30 day, Stop date: 10/17/20 19:12:00 CDT, 0 Benadryl, No 1 appl, Memor ia Topical 1% 09-17 Route: l Cream 08:18: TOP, QID, Drug form: CRM, PRN Rash, Start date: 09/17/20 3:18:00 CDT, Duration: 30 day, Stop date: 10/17/20 3:17:00 CDT, 0 Losartan No Notes: Memoria - (Same as: l 07:28: Cozaar) remove No Notes: Memoria patch - Remove l 22:00: patch 12 hours after applicatio n each day. clobazam No Notes: Memoria 5- (Same as: l 14:00: Onfi) reserved for Neurology use only 24 HR No Notes: Memoria Divalproex -22 Hazardous l Sodium 500 14:00: Drug Group H ermann MG Extended 00 2:Non-anti Release neoplastic Tablet Hazardous Drug -- Refer to safe handling procedure PPE Matrix (Same as: Depakote ER) Once daily dosing; indicated for migraines. Divalproe x sodium extended-r elease tab. Do not chew or crush. Methylpheni No 20 mg, 1 Me moria date 5-22 tab, l 14:00: Route: PO, [place] Drug form: TAB, BID, Dosing Weight 54.545, kg, Start date: 09/16/20 9:00:00 CDT, Duration: 30 day, Stop date: 10/15/20 17:00:00 CDT metoprolol No Notes: Memor ia tartrate -22 (Same as: l 14:00: Lopressor) Aspirin 81 No Notes: Do Me moria MG Enteric -22 not crush l Coated 14:00: or chew. [place] Tablet 00 (Same As: Ecotrin) Lovenox No Notes: Memoria 5-22 (Same as: l 14:00: Lovenox) Vancomycin No 2000 mg: Me moria 5-22 infuse l 14:00: over 2.5 Duy 00 hours For adult patients only: Round to nearest 250 mg per Medical Staff approval MEDICATION WASTE Product Size: 1000 mg Product Wasted: ___ mg Vancomycin No Notes: Memor ia 5-22 TIME l 13:00: CRITICAL MEDICATION (Same As: Vancocin) For adult patients only: Round to nearest 250 mg per Medical Staff approval Lidocaine No Notes: Memori a 0.04 MG/MG -22 Apply only l Medicated 10:00: once for Herm shama Patch 00 up to 12 hours in a 24-hour period (12 hours on and 12 hours off). (Same as: Aspercreme Lidocaine Patch) "Remove old patch before applicatio n of new patch" Aspirin 81 No 81 mg = 1 Me moria MG Enteric 5-22 tab, PO, l Coated 09:11: Daily, # [place] Tablet 00 90 tab, 3 Refill(s) Vancomycin No 2000 mg: Me moria 5-22 infuse l 09:00: over 2.5 [place] 00 hours Iohexol No 100 mL, Memoria -22 Route: l 08:00: IVP, Drug Form: SOLN, Dosing Weight 54.545, kg, ONCALL, STAT, Start date: 09/16/20 3:00:00 CDT, Duration: 1 doses or times, Dose = 2.2ml/kg, Max dose = 100ml -- "To be infused by Radiology Staff ONLY" cefepime No Notes: Memoria 09-16 (Same As: l 06:00: Maxipime) MEDICATION WASTE Product Size: 1000 mg Product Wasted: ___ mg Vancomycin No Notes: Memor ia 09-16 Vancomycin l 04:50: Pharmacy [place] 35 Dosing Protocol PHARMAC Y USE ONLY Note: This is not a medication order. This is a consultati on order. cefepime No Notes: Memoria 09-16 (Same as: l 04:48: Maxipime) MEDICATION WASTE Product Size: 2000 mg Product Wasted: ___ mg Dextrose No 12.5 gm, Memor ia 50% Syringe 09-16 25 mL, l ([id number]) 04:47: Route: IVP, Drug Form: INJ, Dosing Weight 54.545, kg, PRN, PRN Blood Glucose Results, Start date: 09/15/20 23:47:00 CDT, Duration: 30 day, Stop date: 10/15/20 23:46:00 CDT, 0 Glucagon No 1 mg, Memoria 09-16 Route: IM, l 04:47: Drug form: PDR/INJ, PRN, Dosing Weight 54.545, kg, PRN Blood Glucose Results, Start date: 09/15/20 23:47:00 CDT, Duration: 30 day, Stop date: 10/15/20 23:46:00 CDT, 0 sennosides, No Notes: Dannie pat [facility] 09-16 (Same as: l 04:47: Senokot) POLYETHYLEN No Notes: Dannie pat E GLYCOL 09-16 Dissolve l 3350 04:47: in 8 oz of water or juice. (Same as: Miralax) Ondansetron No Notes: Dannie pat 5-22 (Same as: l 04:47: Zofran) MEDICATION WASTE Product Size: 4 mg Product Wasted: ___ mg Melatonin No Notes: Memori a 5-22 (Same as: l 04:47: Melatonin) Acetaminoph No Notes: Do M emoria en - not exceed l 04:47: 4 gm/day. Duy 00 (Same as: Tylenol) LR IV 1,000 No 1,000 mL, M emoria mL - Rate: 55 l 04:47: ml/hr, Infuse over: 18.2 hr, Route: IV, Dosing Weight 54.545 kg, Total Volume: 1,000, Start date: 09/15/20 23:47:00 CDT, Duration: 1 day, Stop date: 09/16/20 23:46:00 CDT, 1.58, m2, 0 Tums No Notes: Memoria 5-22 (Same As: l 04:47: Tums) Calcium Carbonate 500 mg = 200 mg elemental calcium Dose = mg calcium carbonate ( mg elemental calcium) Simethicone No Notes: Dannie pat -22 (Same as: l 04:47: Mylicon) Lubricant No Notes: Memori a Eye Drops - (Same as: l 04:47: Aquasite) Nasal Moist No Notes: Dannie pat 0.65% - (sodium l solution 04:47: chloride Brianna nn 00 0.65% 15 ml nasal DROP) (Same as: Nasal Moist) Tessalon No Notes: Memoria Perles -22 (Same As: l 04:47: Tessalon Perles) "Do Not Crush" Guaifenesin No Notes: Dannie pat 5-22 (Same as: l 04:47: Organidin [place] 00 NR) Blistex No Notes: Memoria topical 5-22 Same as: l ointment 04:47: Blistex Scottie n 00 albuterol No Notes: Memori a 90 mcg/inh 09-16 Albuterol l inhalation 04:47: 90 Duy aerosol 00 microgram/ inh 8.5gm HFA WASTE: Aerosol - Return to Pharmacy Same as: ProAir Hydralazine No Notes: Dannie pat 09-16 (Same as: l 04:45: Apresoline ) Push over 5 minutes Morphine No 4 mg, Memoria 09-16 Route: l 04:18: IVP, ONCE, Dosing Weight 54.545, kg, Priority: STAT, Start date: 09/15/20 23:18:00 CDT, Stop date: 09/15/20 23:18:00 CDT Zofran No 4 mg, Memoria 09-16 Route: l 04:18: IVP, Drug form: INJ, ONCE, Dosing Weight 54.545, kg, Priority: STAT, Start date: 09/15/20 23:18:00 CDT, Stop date: 09/15/20 23:18:00 CDT 24 HR No Notes: Memoria Divalproex 09-16 Hazardous l Sodium 500 01:35: Drug Group H ermann MG Extended 00 2:Non-anti Release neoplastic Tablet Hazardous [Depakote] Drug -- Refer to safe handling procedure PPE Matrix (Same as: Depakote ER) Once daily dosing; indicated for migraines. Divalproe x sodium extended-r elease tab. Do not chew or crush. clobazam No Notes: Memoria - (Same as: l 01:35: Onfi) reserved for Neurology use only Vancomycin No 2000 mg: Me moria - infuse l 00:01: over 2.5 hours Saline No Notes: Memoria Flush 0.9% 09-15 Same as: l 21:20: BD Posiflush Sterile Calcium No 1,600 mL, Memor ia Chloride 09-15 l 0.0014 21:20: ml/hr, [place] MEQ/ML / 00 Infuse Potassium Over: 0.8 Chloride hr, Route: 0.004 IV, 1,600, MEQ/ML / Drug form: Sodium INJ, ONCE, Chloride Priority: 0.103 STAT, MEQ/ML / Dosing Sodium Weight Lactate 54.545 kg, 0.028 Start MEQ/ML date: Injectable 09/15/20 Solution 16:20:00 CDT, Stop date: 09/15/20 16:20:00 CDT, 0 cefepime 2021-0 No Notes: [facility] 09-15 (Same as: l 21:20: Maxipime) [place] MEDICATION WASTE Product Size: 2000 mg Product Wasted: ___ mg divalproex 2021-0 Yes [facility] ([place] [address] [facility]) 500 MG 00:00: 24 hr 00 tablet divalproex 2021-0 Yes [facility] ([place] [address] [facility]) 500 MG 00:00: 24 hr 00 tablet divalproex 2021-0 Yes [facility] ([place] [address] [facility]) 500 MG 00:00: 24 hr 00 tablet divalproex 2021-0 Yes [facility] ([place] [address] [facility]) 500 MG 00:00: 24 hr 00 tablet divalproex 2021-0 Yes [facility] ([place] [address] [facility]) 500 MG 00:00: 24 hr 00 tablet divalproex 2021-0 Yes [facility] ([place] [address] [facility]) 500 MG 00:00: 24 hr 00 tablet divalproex 2021-0 Yes [facility] ([place] [address] [facility]) 500 MG 00:00: 24 hr 00 tablet divalproex 2021-0 Yes [facility] ([place] [address] [facility]) 500 MG 00:00: 24 hr 00 tablet divalproex 2021-0 Yes [facility] ([place] [address] [facility]) 500 MG 00:00: 24 hr 00 tablet divalproex 2021-0 Yes [facility] ([place] [address] [facility]) 500 MG 00:00: 24 hr 00 tablet divalproex 2021-0 Yes [facility] ([place] [address] [facility]) 500 MG 00:00: 24 hr 00 tablet divalproex 2021-0 Yes [facility] ([place] [address] [facility]) 500 MG 00:00: 24 hr 00 tablet divalproex 2021-0 Yes [facility] ([place] [address] [facility]) 500 MG 00:00: 24 hr 00 tablet divalproex 2021-0 Yes [facility] ([place] [address] [facility]) 500 MG 00:00: 24 hr 00 tablet divalproex 2021-0 Yes [facility] ([place] [address] [facility]) 500 MG 00:00: 24 hr 00 tablet divalproex 2021-0 Yes [facility] ([place] [address] [facility]) 500 MG 00:00: 24 hr 00 tablet divalproex 2021-0 Yes [facility] ([place] [address] [facility]) 500 MG 00:00: 24 hr 00 tablet divalproex 2021-0 Yes [facility] ([place] [address] [facility]) 500 MG 00:00: 24 hr 00 tablet divalproex 2021-0 Yes [facility] ([place] [address] [facility]) 500 MG 00:00: 24 hr 00 tablet divalproex 2021-0 Yes [facility] ([place] [address] [facility]) 500 MG 00:00: 24 hr 00 tablet divalproex 2021-0 Yes [facility] ([place] [address] [facility]) 500 MG 00:00: 24 hr 00 tablet divalproex 2021-0 Yes [facility] ([place] [address] [facility]) 500 MG 00:00: 24 hr 00 tablet divalproex 2021-0 Yes [facility] ([place] [address] [facility]) 500 MG 00:00: 24 hr 00 tablet divalproex 2021-0 Yes [facility] ([place] [address] [facility]) 500 MG 00:00: 24 hr 00 tablet divalproex 2021-0 Yes [facility] ([place] [address] [facility]) 500 MG 00:00: 24 hr 00 tablet divalproex 2021-0 Yes [facility] ([place] [address] [facility]) 500 MG 00:00: 24 hr 00 tablet divalproex 2021-0 Yes [facility] ([place] [address] [facility]) 500 MG 00:00: 24 hr 00 tablet divalproex 2021-0 Yes [facility] ([place] [address] [facility]) 500 MG 00:00: 24 hr 00 tablet divalproex 2021-0 Yes [facility] ([place] [address] [facility]) 500 MG 00:00: 24 hr 00 tablet divalproex 2021-0 Yes [facility]) 500 MG 00:00: 24 hr 00 tablet divalproex 202-0 Yes [facility] (Depak[facility]) 500 MG 00:00: 24 hr 00 tablet divalproex 2020-0 Yes [id number] 500mg Take 1 [facility] 500 mg 5-10 tablet by [facility] o f 24 hr 00:00: mouth [place] tablet 00 every 12 [facility] ([facility] hours. divalproex 2020-0 Yes [id number] 500mg Take 1 [facility] 500 mg 5-10 tablet by [facility] o f 24 hr 00:00: mouth [place] tablet 00 every 12 [facility] (twelve[facility] hours. divalproex 2020-0 2021- No [id number] 500mg Take 1 [facility] 500 mg 5-10 01-07 tablet by [facility] of 24 hr 00:00: 00:00 mouth [place] tablet 00 :00 every 12 [facility] (twelve) [facility] hours. Saline No Notes: [facility] Flush 0.9% 5-03 (Same as: l 21:00: BD Duy 00 Posiflush) Lidocaine No Notes: [facility]ori a Hydrochlori 5-03 (Same as: l de 10 MG/ML 15:00: Xylocaine) [place] Injectable 00 Solution Saline No Notes: [facility] Flush 0.9% 5-03 (Same as: l 14:32: BD [place] Posiflush) Saline No Notes: [facility] Flush 0.9% 5-03 (Same as: l 05:00: BD Duy Posiflush) Lidocaine No Notes: Memori a Hydrochlori 5-03 (Same as: l de 10 MG/ML 01:00: Xylocaine) Duy Injectable 00 Solution Saline No Notes: [facility] Flush 0.9% 5-03 (Same as: l 00:30: BD Duy Posiflush) Lisinopril No 20 mg, 1 [facility] 5-02 tab, l 14:00: Route: PO, [place] 00 Drug form: TAB, Daily, Dosing Weight 68.182, kg, Start date: 08/27/20 9:00:00 CDT, Duration: 30 day, Stop date: 09/25/20 9:00:00 CDT remove No Notes: [facility] patch - Remove l 02:00: patch 12 [place] 00 hours after applicatio n each day. Onfi No 5 mg, [facility] 5-01 Route: PO, l 22:00: Drug form: [place] 00 TAB, BID, Dosing Weight 68.182, kg, Start date: 08/26/20 17:00:00 CDT, Duration: 30 day, Stop date: 09/25/20 9:00:00 CDT Metoprolol No 25 mg, 1 [facility] Succinate 5- tab, l ER 25 mg 22:00: Route: PO, Her [place] oral 00 Drug form: tablet, ERTAB, extended BID, Start release date: 08/26/20 17:00:00 CDT, Duration: 30 day, Stop date: 09/25/20 9:00:00 CDT Ritalin No Notes: Memoria 5- (Same as l 18:00: :Ritalin) clobazam No Notes: [facility]oria 5- (Same as: l 16:52: Onfi) reserved for Neurology use only Bacitracin No 1 appl, Dannie pat 5- Route: l 16:52: TOP, Duy 00 Daily, Drug form: OINT, Start date: 08/26/20 11:52:00 CDT, Duration: 30 day, Stop date: 09/25/20 9:00:00 CDT, 0 Lopressor No Notes: Memori a 5-01 (Same as: l 16:52: Lopressor) Duy 00 Cozaar No Notes: Memoria 5-01 (Same as: l 16:51: Cozaar) 24 HR No Notes: Memoria Divalproex 5-01 Hazardous l Sodium 500 16:51: Drug Group H ermann MG Extended 00 2:Non-anti Release neoplastic Tablet Hazardous Drug -- Refer to safe handling procedure PPE Matrix (Same as: Depakote ER) Once daily dosing; indicated for migraines. Divalproe x sodium extended-r elease tab. Do not chew or crush. clobazam 10 Yes 10 mg, PO, Memoria mg oral 5-01 BID, # 60 l tablet 16:44: tab, 0 [place] 00 Refill(s) methylpheni Yes 20 mg = 1 M emoria date 20 mg 5-01 tab, PO, l oral tablet 16:28: BID, Scottie n 00 breakfast and lunch, # 60 tab, 0 Refill(s) losartan 50 Yes 50 mg = 1 M emoria mg oral 5-01 tab, PO, l tablet 16:27: Daily, # [place] 00 30 tab, 0 Refill(s) 24 HR Yes 500 mg = 1 Memori a Divalproex 5-01 tab, PO, l Sodium 500 16:27: Q12H, 0 Herm shama MG Extended 00 Refill(s) Release Tablet Metoprolol Yes 25 mg = 1 Me moria Tartrate 25 5-01 tab, PO, l mg oral 16:27: BID, # 60 Brianna nn tablet 00 tab, 0 Refill(s) Lidocaine No Notes: Memori a - Apply only l 14:00: once for Duy 00 up to 12 hours in a 24-hour period (12 hours on and 12 hours off). (Same as: Aspercreme Lidocaine Patch) "Remove old patch before applicatio n of new patch" Lidocaine No Notes: Memori a Hydrochlori 08-26 (Same as: l de 10 MG/ML 13:00: Xylocaine) Duy Injectable 00 Solution Saline No 10 mL, Memoria Flush 0.9% 08-26 Route: l 13:00: IVP, Drug Form: INJ, Dosing Weight 68.182, kg, Q8H, Start date: 08/26/20 8:00:00 CDT, Duration: 30 day, Stop date: 09/25/20 0:00:00 CDT Saline No 10 mL, Memoria Flush 0.9% 08-26 Route: l 12:12: IVP, Drug Form: INJ, Dosing Weight 68.182, kg, PRN, PRN Line Flush, Start date: 08/26/20 7:12:00 CDT, Duration: 30 day, Stop date: 09/25/20 7:11:00 CDT Saline No Notes: Memoria Flush 0.9% 5- (Same as: l 05:00: BD [place] 00 Posiflush) Docusate No Notes: [facility]oria 5-01 (Same as: l 02:00: Colace) [place] 00 (Do Not Crush) sennosides, No Notes: Dannie pat [facility] 5- (Same as: l 02:00: Senokot) Duy 00 Saline No Notes: Memoria Flush 0.9% 5- (Same as: l 02:00: BD [place] 00 Posiflush) Lidocaine No Notes: Memori a Hydrochlori - (Same as: l de 10 MG/ML 01:00: Xylocaine) Duy Injectable 00 Solution Vancomycin No 2000 mg: Me moria 5- infuse l 01:00: over 2.5 Duy 00 hours For adult patients only: Round to nearest 250 mg per Medical Staff approval MEDICATION WASTE Product Size: 1000 mg Product Wasted: ___ mg Saline No Notes: Memoria Flush 0.9% 5- (Same as: l 00:59: BD Duy 00 Posiflush) Sodium No 1,000 mL, Memori a Chloride - Rate: 50 l 0.9% IV 00:58: ml/hr, [place] 1,000 mL 00 Infuse over: 20 hr, Route: IV, Dosing Weight 69.091 kg, Total Volume: 1,000, Start date: 08/25/20 19:58:00 CDT, Duration: 30 day, Stop date: 09/24/20 19:57:00 CDT, 1.78, m2, 0 Acetaminoph No Notes: Do M emoria en 5-01 not exceed l 00:58: 4 gm/day. [place] 00 (Same as: Tylenol) Acetaminoph No Notes: Do M emoria en 325 MG / 5- not exceed l Hydrocodone 00:58: 4gm/day of [place] Bitartrate 00 acetaminop 10 MG Oral hen. Tablet (Same as: [place] 325/10) Morphine No Notes: Memoria 08-26 (Same l 00:58: as:MORPhin e Sulfate) Bisacodyl No Notes: Memori a 08-26 (Same As: l 00:58: Dulcolax, Bisco-Lax) Ondansetron No Notes: Dannie pat 08-26 (Same as: l 00:58: Zofran) MEDICATION WASTE Product Size: 4 mg Product Wasted: ___ mg Hydralazine No Notes: Dannie pat 08-26 (Same as: l 00:58: Apresoline ) Push over 5 minutes Labetalol No 10 mg, 2 Dannie pat 08-26 mL, Route: l 00:58: IVP, Drug form: INJ, Q15Min, Dosing Weight 69.091, kg, PRN Hypertensi on, Start date: 08/25/20 19:58:00 CDT, Duration: 3 doses or times, Stop date: Limited # of times, 0 Saline No Notes: Memoria Flush 0.9% 08-26 (Same as: l 00:58: BD Posiflush) Vancomycin No 1,000 mg, Me moria 30 Route: l 22:21: IVPB, Drug form: INJ, ONCE, Dosing Weight 69.091, kg, Priority: STAT, Start date: 08/25/20 17:21:00 CDT, Stop date: 08/25/20 17:21:00 CDT, ABX Indication : Bacteremia tramadol Yes 100 mg = 1 Mem oria hydrochlori 4-28 tab, PO, l de 100 MG 20:53: Q6H, X 7 Herm shama Oral Tablet 00 day, # 28 tab, 0 Refill(s), Pharmacy: [facility] 256, 162.56, cm, 08/16/20 6:16:00 CDT, Height, 69.091, kg, 08/16/20 6:16:00 CDT, Weight Acetaminoph Yes 1 - 2 tab, Memoria en 300 MG / 4-28 PO, Q4H, l Codeine 20:53: PRN Pain, Brianna nn Phosphate 00 X 4 day, # 30 MG Oral 36 tab, 0 Tablet Refill(s), [Tylenol Pharmacy: with [facility] 256, 162.56, cm, 08/16/20 6:16:00 CDT, Height, 69.091, kg, 08/16/20 6:16:00 CDT, Weight traMADol Yes [facility] ([facility]) 50 4-28 [facility] MG tablet 00:00: 00 traMADol Yes [facility] (Ultram) 50 4-28 [facility] MG tablet 00:00: 00 traMADol Yes [facility] (Ultram) 50 4-28 [facility] MG tablet 00:00: 00 traMADol Yes [facility] (Ultram) 50 4-28 [facility] MG tablet 00:00: 00 traMADol 0 Yes [facility] (Ultram) 50 4-28 [facility] MG tablet 00:00: 00 traMADol 0 Yes [facility] (Ultram) 50 4-28 [facility] MG tablet 00:00: 00 traMADol 0 Yes [facility] (Ultram) 50 4-28 [facility] MG tablet 00:00: 00 traMADol 0 Yes [facility] (Ultram) 50 4-28 Health MG tablet 00:00: 00 traMADol 0 Yes [facility] (Ultram) 50 4-28 [facility] MG tablet 00:00: 00 traMADol 0 Yes [facility] (Ultram) 50 4-28 Health MG tablet 00:00: 00 traMADol 0 Yes [facility] (Ultram) 50 4-28 Health MG tablet 00:00: 00 traMADol 0 Yes [facility] (Ultram) 50 4-28 Health MG tablet 00:00: 00 traMADol 0 Yes [facility] (Ultram) 50 4-28 Health MG tablet 00:00: 00 traMADol 0 Yes [facility] (Ultram) 50 4-28 Health MG tablet 00:00: 00 traMADol 0 Yes [facility] (Ultram) 50 4-28 Health MG tablet 00:00: 00 traMADol 2021-0 Yes [facility] (Ultram) 50 4-28 Health MG tablet 00:00: 00 traMADol 2020-0 Yes [facility] (Ultram) 50 4-28 Health MG tablet 00:00: 00 traMADol 2020-0 Yes [facility] (Ultram) 50 4-28 Health MG tablet 00:00: 00 traMADol 2020-0 Yes [facility] (Ultram) 50 4-28 Health MG tablet 00:00: 00 traMADol 2020-0 Yes [facility] (Ultram) 50 4-28 Health MG tablet 00:00: 00 traMADol 2020-0 Yes [facility] (Ultram) 50 4-28 Health MG tablet 00:00: 00 traMADol 2020-0 Yes [facility] (Ultram) 50 4-28 Health MG tablet 00:00: 00 traMADol 0 Yes [facility] (Ultram) 50 4-28 [facility] MG tablet 00:00: 00 traMADol 2020-0 Yes [facility] (Ultram) 50 4-28 Health MG tablet 00:00: 00 traMADol 2020-0 Yes [facility] (Ultram) 50 4-28 Health MG tablet 00:00: 00 traMADol 2020-0 Yes [facility] (Ultram) 50 4-28 Health MG tablet 00:00: 00 traMADol 2020-0 Yes [facility] (Ultram) 50 4-28 Health MG tablet 00:00: 00 traMADol 2020-0 Yes [facility] (Ultram) 50 4-28 Health MG tablet 00:00: 00 traMADol 2020-0 Yes [facility] (Ultram) 50 4-28 Health MG tablet 00:00: 00 traMADol 2020-0 2021- No [facility] (Ultram) 50 4-28 05-04 Health MG tablet 00:00: 00:00 00 :00 Vancomycin 2020-0 No 2001 mg: Me moria 4-25 infuse l 21:00: over 2.5 [place] 00 hours For adult patients only: Round to nearest 250 mg per Medical Staff approval MEDICATION WASTE Product Size: 1000 mg Product Wasted: 0 mg Bacitracin No 1 applSandrao pat 4-25 Route: l 14:00: TOP, [place] 00 Daily, Drug form: OINT, Start date: 08/20/20 9:00:00 CDT, Duration: 30 day, Stop date: 09/18/20 9:00:00 CDT, 0 heparin 0 No Notes: Memoria 4-24 porcine l 21:00: heparin glycopyrrol No Route: IV, Memoria ate (ANES) 4- Drug form: l 15:25: INJ, ONCE, Stop date: 08/18/20 10:25:00 CDT neostigmine No Route: IV, Memoria (ANES) 4- Drug form: l 15:25: INJ, ONCE, Stop date: 08/18/20 10:25:00 CDT ondansetron No Route: IV, Memoria (ANES) 4- Drug form: l 15:20: INJ, ONCE, Stop date: 08/18/20 10:20:00 CDT ketAMINE No Route: IV, Mem oria (ANES) 4- Drug form: l 14:09: INJ, ONCE, Stop date: 08/18/20 9:09:00 CDT ePHEDrine No Route: IV, Me moria (ANES) 4- Drug form: l 14:09: INJ, ONCE, Stop date: 08/18/20 9:09:00 CDT phenylephri No Route: IV, Memoria ne (ANES) 4- Drug form: l 13:53: INJ, ONCE, Stop date: 08/18/20 8:53:00 CDT dexamethaso No Route: IV, Memoria ne (ANES) 4-23 Drug form: l 13:48: INJ, ONCE, Stop date: 08/18/20 8:48:00 CDT ceFAZolin No Route: IV, Me moria (ANES) 4-23 Drug form: l 13:48: INJ, ONCE, Stop date: 08/18/20 8:48:00 CDT midazolam No Route: IV, Me moria (ANES) 4-23 Drug form: l 13:43: SOLN, ONCE, Stop date: 08/18/20 8:43:00 CDT lidocaine No Route: IV, Me moria (ANES) 08-18 Drug form: l 13:43: INJ, ONCE, Stop date: 08/18/20 8:43:00 CDT propofol No Route: IV, Mem oria (ANES) 08-18 Drug form: l 13:43: INJ, ONCE, Stop date: 08/18/20 8:43:00 CDT rocuronium No Route: IV, M emoria (ANES) 08-18 Drug form: l 13:43: INJ, ONCE, Stop date: 08/18/20 8:43:00 CDT fentaNYL No Route: IV, Mem oria (ANES) 08-18 Drug form: l 13:43: INJ, ONCE, Stop date: 08/18/20 8:43:00 CDT Labetalol No 10 mg, Memori a 08-18 Route: l 13:42: IVP, [place] 00 Q5Min, Dosing Weight 69.091, kg, PRN Elevated BP, Start date: 08/18/20 8:42:00 CDT, Duration: 5 doses or times, Stop date: Limited # of times Acetaminoph No 1,000 mg, M emoria en 08-18 Route: PO, l 13:42: Drug form: [place] 00 TAB, ONCE, Dosing Weight 69.091, kg, PRN Pain Score 1-3, Start date: 08/18/20 8:42:00 CDT Oxycodone 2020-0 No 5 mg, Memoria Hydrochlori 08-18 Route: PO, l de 5 MG 13:42: Drug form: Herm shama Oral Tablet 00 TAB, Q4H, Dosing Weight 69.091, kg, PRN Pain Score 4-6, Start date: 08/18/20 8:42:00 CDT, Duration: 30 day, Stop date: 09/17/20 8:41:00 CDT Hydromorpho 2020-0 No 0.5 mg, Mem oria ne 08-18 Route: l 13:42: IVP, [place] 00 Q5Min, Dosing Weight 69.091, kg, PRN Pain Score 7-10, Start date: 08/18/20 8:42:00 CDT, Duration: 4 doses or times, Stop date: Limited # of times Flumazenil No 0.2 mg, Dannie pat 08-18 Route: l 13:42: IVP, PRN, Dosing Weight 69.091, kg, PRN Benzodiaze pine Reversal, Initial dose, Start date: 08/18/20 8:42:00 CDT, Duration: 30 day, Stop date: 09/17/20 8:41:00 CDT Naloxone No 0.4 mg, Memori a 08-18 Route: l 13:42: IVP, Duy Q2MIN, Dosing Weight 69.091, kg, PRN Narcotic Reversal, Start date: 08/18/20 8:42:00 CDT, Duration: 8 doses or times, Stop date: Limited # of times Ondansetron No 4 mg, Memor ia 08-18 Route: l 13:42: IVP, ONCE, Dosing Weight 69.091, kg, PRN Nausea & Vomiting, Start date: 08/18/20 8:42:00 CDT Sodium No Route: IV, Memor ia Chloride 08-18 Drug form: l 0.9% IV 13:09: INJ, Start Herm shama (ANES) 98 00 date: mL + 08/18/20 dexmedetomi 8:09:00 dine (ANES) CDT, Stop 200 date: microgram 08/18/20 9:09:00 CDT Isolyte S No Route: IV, Me moria PH 7.4 08-18 Total l (ANES) 1000 12:45: Volume: Her [place] mL 00 1,000, Start date: 08/18/20 7:45:00 CDT, Stop date: 08/18/20 8:45:00 CDT Famotidine No Notes: Memor ia - (Same as: l 14:00: Pepcid) Duy 00 Docusate No Notes: Memoria Sodium 100 - (Same as: l MG Oral 14:00: Colace) [place] Capsule 00 (Do Not Crush) sennosides, No Notes: Dannie pat [facility] - (Same as: l 14:00: Senokot) Duy 00 Saline No Notes: Memoria Flush 0.9% 08-16 (Same as: l 14:00: BD Duy 00 Posiflush) Ritalin No Notes: Memoria -21 (Same as l 14:00: :Ritalin) [place] 00 24 HR No Notes: Memoria Divalproex 08-16 Hazardous l Sodium 500 14:00: Drug Group H ermann MG Extended 00 2:Non-anti Release neoplastic Tablet Hazardous Drug -- Refer to safe handling procedure PPE Matrix (Same as: Depakote ER) Once daily dosing; indicated for migraines. Divalproe x sodium extended-r elease tab. Do not chew or crush. Metoprolol No Notes: Memor ia Succinate 08-16 (Same as: l ER 25 mg 14:00: Toprol XL) Her [place] oral 00 Do Not tablet, Crush extended release Onfi No Notes: Memoria - (Same as: l 14:00: Onfi) Duy 00 reserved for Neurology use only 5 mg=1/2 X 10 mg TAB Sodium No 1,000 mL, Memori a Chloride 08-16 Rate: 75 l 0.9% IV 09:17: ml/hr, [place] 1,000 mL 00 Infuse over: 13.3 hr, Route: IV, Dosing Weight 68.182 kg, Total Volume: 1,000, Start date: 08/16/20 4:17:00 CDT, Duration: 30 day, Stop date: 09/15/20 4:16:00 CDT, 1.78, m2, 0 Morphine No Notes: Memoria - (Same l 09:17: as:MORPhin e Sulfate) Labetalol No 10 mg, 2 Dannie pat 4-21 mL, Route: l 09:17: IVP, Drug form: INJ, Q15Min, Dosing Weight 68.182, kg, PRN Hypertensi on, Start date: 08/16/20 4:17:00 CDT, Duration: 3 doses or times, Stop date: Limited # of times, 0 Bisacodyl No Notes: Memori a 08-16 (Same As: l 09:17: Dulcolax, Bisco-Lax) Ondansetron No Notes: Dannie pat 08-16 (Same as: l 09:17: Zofran) MEDICATION WASTE Product Size: 4 mg Product Wasted: ___ mg Saline No Notes: Memoria Flush 0.9% 08-16 (Same as: l 09:17: BD Posiflush) Insulin No Notes: Memoria regular 08-16 (Same as: l 09:17: Humulin R) Roll in palms of hands gently; Do not shake vigorously . WASTE: F/P - Black; E - Municipal Trash Bin Stable for 31 days at room temperatur e Expires in days from ____Date Dextrose No 12.5 gm, Memor ia 50% Syringe 08-16 25 mL, l ([id number]) 09:17: Route: IVP, Drug Form: INJ, Dosing Weight 68.182, kg, PRN, PRN Blood Glucose Results, Start date: 08/16/20 4:17:00 CDT, Duration: 30 day, Stop date: 09/15/20 4:16:00 CDT, 0 Glucagon No 1 mg, Memoria 08-16 Route: IM, l 09:17: Drug form: PDR/INJ, PRN, Dosing Weight 68.182, kg, PRN Blood Glucose Results, Start date: 08/16/20 4:17:00 CDT, Duration: 30 day, Stop date: 09/15/20 4:16:00 CDT, 0 Acetaminoph No Notes: Dannie pat en 325 MG / 08-16 (Same as: l Hydrocodone 09:16: [place] Brianna nn Bitartrate 00 325/5) Do 5 MG Oral not exceed Tablet 4gm/day of [[place] acetaminop 5/325] hen. Tylenol 2021-0 No Notes: Do Memor ia 4-21 not exceed l 09:15: 4 gm/day. Duy 00 (Same as: Tylenol) Saline 2020-0 No Notes: Memoria Flush 0.9% 08-16 (Same as: l 08:02: BD Duy 00 Posiflush) methylpheni 2020-0 Yes TAKE 1 [facility] date 4-21 TABLET BY Health (Ritalin) 00:00: MOUTH 20 MG 00 THREE tablet TIMES DAILY methylpheni 2021-0 Yes TAKE 1 [facility] date 4-21 TABLET BY Health (Ritalin) 00:00: MOUTH 20 MG 00 THREE tablet TIMES DAILY methylpheni 2021-0 Yes TAKE 1 UT date 4-21 TABLET BY Health (Ritalin) 00:00: MOUTH 20 MG 00 THREE tablet TIMES DAILY methylpheni 1-0 Yes TAKE 1 UT date 4-21 TABLET BY Health (Ritalin) 00:00: MOUTH 20 MG 00 THREE tablet TIMES DAILY methylpheni 2021-0 Yes TAKE 1 UT date 4-21 TABLET BY Health (Ritalin) 00:00: MOUTH 20 MG 00 THREE tablet TIMES DAILY methylpheni 2021-0 Yes TAKE 1 UT date 4-21 TABLET BY Health (Ritalin) 00:00: MOUTH 20 MG 00 THREE tablet TIMES DAILY methylpheni 2021-0 Yes TAKE 1 UT date 4-21 TABLET BY Health (Ritalin) 00:00: MOUTH 20 MG 00 THREE tablet TIMES DAILY methylpheni 1-0 Yes TAKE 1 UT date 4-21 TABLET BY Health (Ritalin) 00:00: MOUTH 20 MG 00 THREE tablet TIMES DAILY methylpheni 2021-0 Yes TAKE 1 UT date 4-21 TABLET BY Health (Ritalin) 00:00: MOUTH 20 MG 00 THREE tablet TIMES DAILY methylpheni 2021-0 Yes TAKE 1 UT date 4-21 TABLET BY Health (Ritalin) 00:00: MOUTH 20 MG 00 THREE tablet TIMES DAILY methylpheni 2021-0 Yes TAKE 1 UT date 4-21 TABLET BY Health (Ritalin) 00:00: MOUTH 20 MG 00 THREE tablet TIMES DAILY methylpheni 2021-0 Yes TAKE 1 UT date 4-21 TABLET BY Health (Ritalin) 00:00: MOUTH 20 MG 00 THREE tablet TIMES DAILY methylpheni 2021-0 Yes TAKE 1 UT date 4-21 TABLET BY Health (Ritalin) 00:00: MOUTH 20 MG 00 THREE tablet TIMES DAILY methylpheni 2021-0 Yes TAKE 1 UT date 4-21 TABLET BY Health (Ritalin) 00:00: MOUTH 20 MG 00 THREE tablet TIMES DAILY methylpheni 2021-0 Yes TAKE 1 UT date 4-21 TABLET BY Health (Ritalin) 00:00: MOUTH 20 MG 00 THREE tablet TIMES DAILY methylpheni 2021-0 Yes TAKE 1 UT date 4-21 TABLET BY Health (Ritalin) 00:00: MOUTH 20 MG 00 THREE tablet TIMES DAILY methylpheni 2021-0 Yes TAKE 1 UT date 4-21 TABLET BY Health (Ritalin) 00:00: MOUTH 20 MG 00 THREE tablet TIMES DAILY methylpheni 2021-0 Yes TAKE 1 UT date 4-21 TABLET BY Health (Ritalin) 00:00: MOUTH 20 MG 00 THREE tablet TIMES DAILY methylpheni 2021-0 Yes TAKE 1 UT date 4-21 TABLET BY Health (Ritalin) 00:00: MOUTH 20 MG 00 THREE tablet TIMES DAILY methylpheni 2021-0 Yes TAKE 1 UT date 4-21 TABLET BY Health (Ritalin) 00:00: MOUTH 20 MG 00 THREE tablet TIMES DAILY methylpheni 2021-0 Yes TAKE 1 UT date 4-21 TABLET BY Health (Ritalin) 00:00: MOUTH 20 MG 00 THREE tablet TIMES DAILY methylpheni 2021-0 Yes TAKE 1 UT date 4-21 TABLET BY Health (Ritalin) 00:00: MOUTH 20 MG 00 THREE tablet TIMES DAILY methylpheni 2021-0 Yes TAKE 1 UT date 4-21 TABLET BY Health (Ritalin) 00:00: MOUTH 20 MG 00 THREE tablet TIMES DAILY methylpheni 2021-0 Yes TAKE 1 UT date 4-21 TABLET BY Health (Ritalin) 00:00: MOUTH 20 MG 00 THREE tablet TIMES DAILY methylpheni 2021-0 Yes TAKE 1 UT date 4-21 TABLET BY Health (Ritalin) 00:00: MOUTH 20 MG 00 THREE tablet TIMES DAILY methylpheni 2021-0 Yes TAKE 1 UT date 4-21 TABLET BY Health (Ritalin) 00:00: MOUTH 20 MG 00 THREE tablet TIMES DAILY methylpheni 2021-0 Yes TAKE 1 UT date 4-21 TABLET BY Health (Ritalin) 00:00: MOUTH 20 MG 00 THREE tablet TIMES DAILY methylpheni 2021-0 Yes TAKE 1 UT date 4-21 TABLET BY Health (Ritalin) 00:00: MOUTH 20 MG 00 THREE tablet TIMES DAILY methylpheni 2020-0 Yes TAKE 1 UT date 4-21 TABLET BY Health (Ritalin) 00:00: MOUTH 20 MG 00 THREE tablet TIMES DAILY methylpheni 2020-0 Yes TAKE 1 UT date 4-21 TABLET BY Health (Ritalin) 00:00: MOUTH 20 MG 00 THREE tablet TIMES DAILY methylpheni 2020-0 Yes TAKE 1 UT date 4-21 TABLET BY Health (Ritalin) 00:00: MOUTH 20 MG 00 THREE tablet TIMES DAILY methylpheni 1-0 Yes [id number] TAKE 1 [facility] date HCl 4-21 TABLET BY ity of (RITALIN) 00:00: MOUTH [place] 20 mg 00 THREE Medical tablet TIMES Branch DAILY methylpheni 2020-0 Yes [id number] TAKE 1 [facility] date HCl 4-21 TABLET BY ity of (RITALIN) 00:00: MOUTH [place] 20 mg 00 THREE Medical tablet TIMES Branch DAILY methylpheni 2020-0 2- No 1{tbl} Take 1 U nivers date HCl 20 4-21 03-31 tablet by it y of mg tablet 00:00: 00:00 mouth 3 [place] 00 :[place] (three) Medical times Branch daily. methylpheni 2020-0 2020- No [id number] TAKE 1 [facility] date HCl 4-21 06-28 TABLET BY ity tisha f (RITALIN) 00:00: 00:00 MOUTH [place] 20 mg 00 :00 THREE Medical tablet TIMES Branch DAILY cloBAZam 2020-0 Yes [facility] (Onfi) 10 4-19 Health MG tablet 00:00: 00 cloBAZam 2021-0 Yes [facility] (Onfi) 10 4-19 Health MG tablet 00:00: 00 cloBAZam 2021-0 Yes [facility] (Onfi) 10 4-19 Health MG tablet 00:00: 00 cloBAZam 2021-0 Yes UT (Onfi) 10 4-19 Health MG tablet 00:00: 00 cloBAZam 2021-0 Yes UT (Onfi) 10 4-19 Health MG tablet 00:00: 00 cloBAZam 2021-0 Yes UT (Onfi) 10 4-19 Health MG tablet 00:00: 00 cloBAZam 2021-0 Yes UT (Onfi) 10 4-19 Health MG tablet 00:00: 00 cloBAZam 1-0 Yes UT (Onfi) 10 4-19 Health MG tablet 00:00: 00 cloBAZam 2020-0 Yes UT (Onfi) 10 4-19 Health MG tablet 00:00: 00 cloBAZam 2021-0 Yes UT (Onfi) 10 4-19 Health MG tablet 00:00: 00 cloBAZam 2020-0 Yes UT (Onfi) 10 4-19 Health MG tablet 00:00: 00 cloBAZam 2020-0 Yes UT (Onfi) 10 4-19 Health MG tablet 00:00: 00 cloBAZam 2020-0 Yes UT (Onfi) 10 4-19 Health MG tablet 00:00: 00 cloBAZam 2020-0 Yes UT (Onfi) 10 4-19 Health MG tablet 00:00: 00 cloBAZam 2020-0 Yes UT (Onfi) 10 4-19 Health MG tablet 00:00: 00 cloBAZam 2020-0 Yes UT (Onfi) 10 4-19 Health MG tablet 00:00: 00 cloBAZam 2020-0 Yes UT (Onfi) 10 4-19 Health MG tablet 00:00: 00 cloBAZam 2020-0 Yes UT (Onfi) 10 4-19 Health MG tablet 00:00: 00 cloBAZam 2020-0 Yes UT (Onfi) 10 4-19 Health MG tablet 00:00: 00 cloBAZam 2020-0 Yes UT (Onfi) 10 4-19 Health MG tablet 00:00: 00 cloBAZam 1-0 Yes UT (Onfi) 10 4-19 Health MG tablet 00:00: 00 cloBAZam 1-0 Yes UT (Onfi) 10 4-19 Health MG tablet 00:00: 00 cloBAZam 1-0 Yes UT (Onfi) 10 4-19 Health MG tablet 00:00: 00 cloBAZam 2020-0 Yes UT (Onfi) 10 4-19 Health MG tablet 00:00: 00 cloBAZam 2020-0 Yes UT (Onfi) 10 4-19 Health MG tablet 00:00: 00 cloBAZam 2020-0 Yes UT (Onfi) 10 4-19 Health MG tablet 00:00: 00 cloBAZam 2020-0 Yes UT (Onfi) 10 4-19 Health MG tablet 00:00: 00 cloBAZam 2020-0 Yes [facility] (Onfi) 10 4-19 Health MG tablet 00:00: 00 cloBAZam 2020-0 Yes UT (Onfi) 10 4-19 Health MG tablet 00:00: 00 cloBAZam 2020-0 Yes UT (Onfi) 10 4-19 Health MG tablet 00:00: 00 cloBAZam 2020-0 Yes [facility] (Onfi) 10 4-19 Health MG tablet 00:00: 00 DIVALPROEX 2020-0 Yes [id number] TAKE ONE Univers ER 500 mg 3-26 TABLET BY ity o f 24 hr 00:00: MOUTH [place] tablet 00 EVERY 12 Medical HOURS Branch DIVALPROEX 2020-0 Yes [id number] TAKE ONE [facility] ER 500 mg 3-26 TABLET BY ity o f 24 hr 00:00: MOUTH [place] tablet 00 EVERY 12 Medical HOURS Branch DIVALPROEX 2020-0 2021- No [id number] TAKE ONE Univers ER 500 mg 3-26 05-10 TABLET BY ity of 24 hr 00:00: 00:00 MOUTH [place] tablet 00 :00 EVERY 12 Medical HOURS Branch losartan 2020-0 Yes [facility] (Cozaar) 50 3-17 Health MG tablet 00:00: 00 losartan 2020-0 Yes [facility] (Cozaar) 50 3-17 Health MG tablet 00:00: 00 losartan 1-0 Yes [facility] (Cozaar) 50 3-17 Health MG tablet 00:00: 00 losartan 1-0 Yes UT (Cozaar) 50 3-17 Health MG tablet 00:00: 00 losartan 2021-0 Yes [facility] (Cozaar) 50 3-17 Health MG tablet 00:00: 00 losartan 2021-0 Yes [facility] (Cozaar) 50 3-17 Health MG tablet 00:00: 00 losartan 2021-0 Yes UT (Cozaar) 50 3-17 Health MG tablet 00:00: 00 losartan 2021-0 Yes UT (Cozaar) 50 3-17 Health MG tablet 00:00: 00 losartan 2021-0 Yes UT (Cozaar) 50 3-17 Health MG tablet 00:00: 00 losartan 2021-0 Yes UT (Cozaar) 50 3-17 Health MG tablet 00:00: 00 losartan 2021-0 Yes UT (Cozaar) 50 3-17 Health MG tablet 00:00: 00 losartan 2021-0 Yes UT (Cozaar) 50 3-17 Health MG tablet 00:00: 00 losartan 2021-0 Yes UT (Cozaar) 50 3-17 Health MG tablet 00:00: 00 losartan 2021-0 Yes UT (Cozaar) 50 3-17 Health MG tablet 00:00: 00 losartan 2021-0 Yes UT (Cozaar) 50 3-17 Health MG tablet 00:00: 00 losartan 2021-0 Yes UT (Cozaar) 50 3-17 Health MG tablet 00:00: 00 losartan 2021-0 Yes UT (Cozaar) 50 3-17 Health MG tablet 00:00: 00 losartan 2021-0 Yes UT (Cozaar) 50 3-17 Health MG tablet 00:00: 00 losartan 2021-0 Yes UT (Cozaar) 50 3-17 Health MG tablet 00:00: 00 losartan 2021-0 Yes UT (Cozaar) 50 3-17 Health [facility] tablet 00:00: 00 losartan 2021-0 Yes [facility] (Cozaar) 50 3-17 [facility] tablet 00:00: 00 losartan 2021-0 Yes [facility] (Cozaar) 50 3-17 [facility] tablet 00:00: 00 losartan 2021-0 Yes [facility] (Cozaar) 50 3-17 [facility] tablet 00:00: 00 losartan 2021-0 Yes [facility] (Cozaar) 50 3-17 [facility] tablet 00:00: 00 losartan 2021-0 Yes [facility] (Cozaar) 50 3-17 [facility] tablet 00:00: 00 losartan 2021-0 Yes [facility] (Cozaar) 50 3-17 [facility] tablet 00:00: 00 losartan 2021-0 Yes [facility] (Cozaar) 50 3-17 [facility] tablet 00:00: 00 losartan 2021-0 Yes [facility] (Cozaar) 50 3-17 [facility] tablet 00:00: 00 losartan 2021-0 Yes [facility] (Cozaar) 50 3-17 [facility] tablet 00:00: 00 losartan 2021-0 Yes [facility] (Cozaar) 50 3-17 [facility] tablet 00:00: 00 losartan 2021-0 Yes [facility] (Cozaar) 50 [facility] tablet 00:00: 00 methylpheni 2021-0 Yes [id number] TAKE 1 [facility] 3-11 TABLET BY [facility] (RITALIN) 00:00: MOUTH [place] 20 mg 00 THREE [facility] tablet TIMES [facility] DAILY methylpheni 2021-0 Yes [id number] TAKE 1 [facility] date HCl 3-11 TABLET BY [facility] (RITALIN) 00:00: MOUTH [place] 20 mg 00 THREE [facility] tablet TIMES [facility] DAILY methylpheni 2021-0 Yes [id number] TAKE 1 [facility] date HCl 3-11 TABLET BY [facility] (RITALIN) 00:00: MOUTH [place] 20 mg 00 THREE [facility] tablet TIMES [facility] DAILY methylpheni 2021-0 2021- No [id number] TAKE 1 [facility] date HCl 3-11 04-21 TABLET BY [facility] o f (RITALIN) 00:00: 00:00 MOUTH [place] 20 mg 00 :00 THREE [facility] tablet TIMES [facility] DAILY metoprolol 2021-0 Yes [facility] tartrate 2-24 [facility] (Lopressor) 00:00: 25 [facility] 00 tablet metoprolol 2021-0 Yes [facility] tartrate [facility]-24 [facility] (Lopressor) 00:00: 25 MG 00 tablet metoprolol 2021-0 Yes [facility] tartrate [facility]-24 [facility] (Lopressor) 00:00: 25 MG 00 tablet metoprolol 2021-0 Yes [facility] tartrate 2-24 [facility] (Lopressor) 00:00: 25 MG 00 tablet metoprolol 2021-0 Yes [facility]rate [facility]-24 [facility] (Lopressor) 00:00: 25 MG 00 tablet metoprolol 2021-0 Yes [facility] tartrate [facility]-24 [facility] (Lopressor) 00:00: 25 MG 00 tablet metoprolol 2021-0 Yes [facility] tartrate 2-24 [facility] (Lopressor) 00:00: 25 MG 00 tablet metoprolol 2021-0 Yes [facility] tartrate [facility]-24 [facility] (Lopressor) 00:00: 25 MG 00 tablet metoprolol 2021-0 Yes [facility] tartrate 2-24 [facility] (Lopressor) 00:00: 25 MG 00 tablet metoprolol 2021-0 Yes [facility]rate 2-24 [facility] (Lopressor) 00:00: 25 MG 00 tablet metoprolol 2021-0 Yes [facility] tartrate 2-24 [facility] (Lopressor) 00:00: 25 MG 00 tablet metoprolol 2021-0 Yes [facility] tartrate 2-24 [facility] (Lopressor) 00:00: 25 MG 00 tablet metoprolol 2021-0 Yes [facility] tartrate 2-24 [facility] (Lopressor) 00:00: 25 MG 00 tablet metoprolol 2021-0 Yes [facility] tartrate 2-24 [facility] (Lopressor) 00:00: 25 MG 00 tablet metoprolol 2021-0 Yes [facility] tartrate 2-24 [facility] (Lopressor) 00:00: 25 MG 00 tablet metoprolol 2021-0 Yes [facility] tartrate 2-24 [facility] (Lopressor) 00:00: 25 MG 00 tablet metoprolol 2021-0 Yes [facility] tartrate 2-24 [facility] (Lopressor) 00:00: 25 MG 00 tablet metoprolol 2021-0 Yes [facility] tartrate 2-24 [facility] (Lopressor) 00:00: 25 MG 00 tablet metoprolol 2021-0 Yes [facility] tartrate 2-24 [facility] (Lopressor) 00:00: 25 MG 00 tablet metoprolol 2021-0 Yes [facility] tartrate 2-24 [facility] (Lopressor) 00:00: 25 MG 00 tablet metoprolol 2021-0 Yes [facility] tartrate 2-24 [facility] (Lopressor) 00:00: 25 MG 00 tablet metoprolol 2021-0 Yes [facility] tartrate 2-24 [facility] (Lopressor) 00:00: 25 MG 00 tablet metoprolol 2021-0 Yes [facility] tartrate 2-24 [facility] (Lopressor) 00:00: 25 MG 00 tablet metoprolol 2021-0 Yes [facility] tartrate 2-24 [facility] (Lopressor) 00:00: 25 MG 00 tablet metoprolol 2021-0 Yes [facility] tartrate 2-24 [facility] (Lopressor) 00:00: 25 MG 00 tablet metoprolol 2021-0 Yes [facility] tartrate 2-24 [facility] (Lopressor) 00:00: 25 MG 00 tablet metoprolol 2021-0 Yes [facility] tartrate 2-24 [facility] (Lopressor) 00:00: 25 MG 00 tablet metoprolol 2021-0 Yes [facility] tartrate 2-24 [facility] (Lopressor) 00:00: 25 MG 00 tablet metoprolol 2021-0 Yes [facility] tartrate 2-24 [facility] (Lopressor) 00:00: 25 MG 00 tablet metoprolol 2021-0 Yes [facility] tartrate 2-24 [facility] (Lopressor) 00:00: 25 MG 00 tablet metoprolol Yes [facility] tartrate 2-24 [facility] (Lopressor) 00:00: 25 MG 00 tablet cloBAZam 10 Yes [id number] 1{tbl} Take 1 [facility] Tab 2-12 tablet by [facility] 00:00: mouth 2 (two) Medical times Branch daily. cloBAZam Yes [id number] 1{tbl} Take 1 [facility] mg Tab 2-12 tablet by [facility] 00:00: mouth 2 (two) Medical times Branch daily. cloBAZam Yes [id number] 1{tbl} Take 1 [facility] mg Tab 2-12 tablet by [facility] 00:00: mouth 2 (two) Medical times Branch daily. cloBAZam Yes [id number] 1{tbl} Take 1 [facility] mg Tab 2-12 tablet by [facility] of 00:00: mouth 2 (two) Medical times Branch daily. cloBAZam Yes [id number] 1{tbl} Take 1 [facility] mg Tab 2-12 tablet by [facility] of 00:00: mouth 2 (two) Medical times Branch daily. cloBAZam Yes [id number] 1{tbl} Take 1 [facility] mg Tab 2-12 tablet by [facility] of 00:00: mouth 2 (two) Medical times Branch daily. cloBAZam Yes [id number] 1{tbl} Take 1 [facility] mg Tab 2-12 tablet by [facility] of 00:00: mouth 2 (two) Medical times Branch daily. cloBAZam Yes [id number] 1{tbl} Take 1 [facility] mg Tab 2-12 tablet by [facility] of 00:00: mouth 2 (two) Medical times Branch daily. cloBAZam 10 Yes [id number] 1{tbl} Take 1 [facility] mg Tab 2-12 tablet by [facility] of 00:00: mouth 2 (two) Medical times Branch daily. cloBAZam Yes [id number] 1{tbl} Take 1 [facility] mg Tab 2-12 tablet by [facility] of 00:00: mouth 2 (two) Medical times Branch daily. cloBAZam Yes [id number] 1{tbl} Take 1 [facility] mg Tab 2-12 tablet by [facility] of 00:00: mouth 2 [place] 00 (two) Medical times Branch daily. cloBAZam Yes [id number] 1{tbl} Take 1 [facility] mg Tab 2-12 tablet by [facility] of 00:00: mouth 2 [place] (two) Medical times Branch daily. cloBAZam Yes [id number] 1{tbl} Take 1 [facility] mg Tab 2-12 tablet by [facility] of 00:00: mouth 2 (two) Medical times Branch daily. cloBAZam Yes [id number] 1{tbl} Take 1 [facility] mg Tab 2-12 tablet by [facility] of 00:00: mouth 2 (two) Medical times Branch daily. cloBAZam 2021- No [id number] 1{tbl} Take 1 [facility] mg Tab 2-12 04-01 tablet by [facility] of 00:00: 00:00 mouth 2 [place] 00 :00 (two) Medical times Branch daily. DIVALPROEX 2020-1 Yes [id number] TAKE ONE [facility] ER 500 mg 1-17 TABLET BY [facility] o f 24 hr 00:00: MOUTH [place] tablet 00 EVERY 12 Medical HOURS Branch DIVALPROEX 2020-1 Yes [id number] TAKE ONE [facility] ER 500 mg 1-17 TABLET BY [facility] o f 24 hr 00:00: MOUTH [place] tablet 00 EVERY 12 Medical HOURS Branch DIVALPROEX 2020-1 Yes [id number] TAKE ONE [facility] ER 500 mg 1-17 TABLET BY [facility] o f 24 hr 00:00: MOUTH [place] tablet 00 EVERY 12 Medical HOURS Branch DIVALPROEX 2020-1 Yes [id number] TAKE ONE [facility] ER 500 mg 1-17 TABLET BY [facility] o f 24 hr 00:00: MOUTH [place] tablet 00 EVERY 12 Medical HOURS Branch DIVALPROEX 2020-1 Yes [id number] TAKE ONE [facility] ER 500 mg 1-17 TABLET BY [facility] o f 24 hr 00:00: MOUTH [place] tablet 00 EVERY 12 Medical HOURS Branch DIVALPROEX 2020-1 Yes [id number] TAKE ONE [facility] ER 500 mg 1-17 TABLET BY [facility] o f 24 hr 00:00: MOUTH [place] tablet 00 EVERY 12 Medical HOURS Branch DIVALPROEX 2020- Yes [id number] TAKE ONE [facility] 500 mg 1-17 TABLET BY [facility] o f 24 hr 00:00: MOUTH [place] tablet 00 EVERY 12 Medical HOURS Branch DIVALPROEX 2020- Yes [id number] TAKE ONE [facility] ER 500 mg 1-17 TABLET BY [facility] o f 24 hr 00:00: MOUTH [place] tablet 00 EVERY 12 Medical HOURS Branch DIVALPROEX 2020- Yes [id number] TAKE ONE [facility] ER 500 mg 1-17 TABLET BY [facility] o f 24 hr 00:00: MOUTH [place] tablet 00 EVERY 12 Medical HOURS Branch DIVALPROEX 2020- Yes [id number] TAKE ONE [facility] ER 500 mg 1-17 TABLET BY [facility] o f 24 hr 00:00: MOUTH [place] tablet 00 EVERY 12 Medical HOURS Branch DIVALPROEX 2020-1 2021- No [id number] TAKE ONE [facility] ER 500 mg 1-17 03-26 TABLET BY [facility] of 24 hr 00:00: 00:00 MOUTH [place] tablet 00 :00 EVERY 12 Medical HOURS [place] gabapentin 2020-0 Yes [facility] (Neurontin) 9-26 [facility] 100 MG 00:00: capsule 00 gabapentin 2020-0 Yes [facility] (Neurontin) 9-26 [facility] 100 MG 00:00: capsule 00 gabapentin 2020-0 Yes [facility] (Neurontin) 9-26 [facility] 100 MG 00:00: capsule 00 gabapentin 2020-0 Yes [facility] (Neurontin) 9-26 [facility] 100 MG 00:00: capsule 00 gabapentin 2020-0 Yes [facility] (Neurontin) 9-26 [facility] 100 MG 00:00: capsule 00 gabapentin 2020-0 Yes [facility] (Neurontin) 9-26 [facility] 100 MG 00:00: capsule 00 gabapentin 2020-0 Yes [facility] (Neurontin) 9-26 [facility] 100 MG 00:00: capsule 00 gabapentin 2020-0 Yes [facility] (Neurontin) 9-26 [facility] 100 MG 00:00: capsule 00 gabapentin 2020-0 Yes [facility] (Neurontin) 9-26 [facility] 100 MG 00:00: capsule 00 gabapentin 2020-0 Yes [facility] (Neurontin) 9-26 [facility] 100 MG 00:00: capsule 00 gabapentin 2020-0 Yes [facility] (Neurontin) 9-26 [facility] 100 MG 00:00: capsule 00 gabapentin 2020-0 Yes [facility] (Neurontin) 9-26 [facility] 100 MG 00:00: capsule 00 gabapentin 2020-0 Yes [facility] (Neurontin) - [facility] 100 MG 00:00: capsule 00 gabapentin 2020-0 Yes [facility] (Neurontin) - [facility] 100 MG 00:00: capsule 00 gabapentin 2020-0 Yes [facility] (Neurontin) 9 [facility] 100 MG 00:00: capsule 00 gabapentin 2020-0 Yes [facility] (Neurontin) 01-21 [facility] 100 MG 00:00: capsule 00 gabapentin 2020-0 Yes [facility] (Neurontin) 01-21 [facility] 100 MG 00:00: capsule 00 gabapentin 2020-0 Yes [facility] (Neurontin) 01-21 [facility] 100 MG 00:00: capsule 00 gabapentin 2020-0 Yes [facility] (Neurontin) 01-21 [facility] 100 MG 00:00: capsule 00 gabapentin 2020-0 Yes [facility] (Neurontin) 01-21 [facility] 100 MG 00:00: capsule 00 gabapentin 2020-0 Yes [facility] (Neurontin) 01-21 [facility] 100 MG 00:00: capsule 00 gabapentin 2020-0 Yes [facility] (Neurontin) 01-21 [facility] 100 MG 00:00: capsule 00 gabapentin 2020-0 Yes [facility] (Neurontin) 01-21 [facility] 100 MG 00:00: capsule 00 gabapentin 2020-0 Yes [facility] (Neurontin) 01-21 [facility] 100 MG 00:00: capsule 00 gabapentin 2020-0 Yes [facility] (Neurontin) 01-21 [facility] 100 MG 00:00: capsule 00 gabapentin 2020-0 Yes [facility] (Neurontin) 01-21 [facility] 100 MG 00:00: capsule 00 gabapentin 2020-0 Yes [facility] (Neurontin) - [facility] 100 MG 00:00: capsule 00 gabapentin 2020-0 Yes [facility] (Neurontin) 01-21 [facility] 100 MG 00:00: capsule 00 gabapentin 2020-0 Yes [facility] (Neurontin) 01-21 [facility] 100 MG 00:00: capsule 00 gabapentin 2020-0 Yes [facility] (Neurontin) 01-21 [facility] 100 MG 00:00: capsule 00 gabapentin 2020-0 Yes [facility] (Neurontin) 01-21 [facility] 100 MG 00:00: capsule 00 multivitami 2020-0 Yes 1{tbl} QD Take [address] [facility] per 9-10 tablet by [facility]: [facility] 32 daily. Center GLUCOSAM/CH 2020-0 Yes 2{tbl} QD Take [address] OND/HYALU/C 9-10 tablets by Samia kes F BORATE 12:55: mouth Medical (MOVE FREE 32 daily. [place] [facility]) DOCOSAHEXAN 2020-0 Yes 1{capsu QD Take [address] OIC 9-10 le} capsule by Song ACID/EPA 12:55: mouth Medical (FISH OIL 32 daily. Center ORAL) Missing or 2020-0 Yes 1{tbl} QD [address] Non-Formula 9-10 daily. [facility] 12:55: Medical Medication 32 Center gabapentin 2020-0 Yes 100mg Q.[id number] Take [address] [facility] (NEURONTIN) 9-10 [id number] mg by L ukes 100 MG 12:55: 3D mouth 3 Medical capsule 32 (three) Center times daily. divalproex 2020-0 Yes 500mg Take [address] (DEPAKOTE) 9-10 [facility] by [facility] 250 MG 24 12:55: mouth 2 Medic al hr tablet 32 (two) Center times daily with breakfast and dinner . CLOBAZAM 2020-0 Yes 10mg Q.5D Take [address] [facility] (ONFI ORAL) 9-10 by mouth 2 Samia kes 12:55: (two) Medical 32 times Center daily . methylpheni 2020-0 Yes 20mg Take [address] [facility] date HCl 9-10 by mouth 2 [facility] (RITALIN) 12:55: (two) Medical 20 MG 32 times Center tablet daily with breakfast and lunch. metoprolol 2020-0 Yes 25mg Q.5D Take [address] (LOPRESSOR) 9-10 by mouth 2 Samia kes 25 MG 12:55: (two) Medical tablet 32 times Center daily. aspirin 81 2020-0 Yes 81mg Q.5D Take [address] MG chewable 9-10 by mouth 2 Samia kes tablet 12:55: (two) Medical 32 times Center daily. multivitami 2020-0 Yes 1{tbl} QD Take [address] [facility] per 9-10 tablet by [facility] tablet 12:55: mouth Medical 32 daily. [place] GLUCOSAM/CH 2020-0 Yes 2{tbl} QD Take [address] OND/HYALU/C 9-10 tablets by Samia kes F BORATE 12:55: mouth Medical (MOVE FREE 32 daily. [facility]) DOCOSAHEXAN 2020-0 Yes 1{capsu QD Take [address] OIC 9-10 le} capsule by [facility] ACID/EPA 12:55: mouth Medical (FISH OIL 32 daily. Center ORAL) Missing or 2020-0 Yes 1{tbl} QD [address] Non-Formula 9-10 daily. [facility] 12:55: Medical Medication 32 Center gabapentin 2020-0 Yes 100mg Q.[id number] Take [address] [facility] (NEURONTIN) 9-10 [id number] mg by L ukes 100 MG 12:55: 3D mouth 3 Medical capsule 32 (three) Center times daily. divalproex 2020-0 Yes 500mg Take [address] (DEPAKOTE) 9-10 [facility] by [facility] 250 MG 24 12:55: mouth 2 Medic al hr tablet 32 (two) Center times daily with breakfast and dinner . CLOBAZAM 2020-0 Yes 10mg Q.5D Take [address] [facility] (ONFI ORAL) 9-10 by mouth 2 Samia kes 12:55: (two) Medical 32 times Center daily . methylpheni 2020-0 Yes 20mg Take [address] [facility] date HCl 9-10 by mouth 2 [facility] (RITALIN) 12:55: (two) Medical 20 MG 32 times Center tablet daily with breakfast and lunch. metoprolol 2020-0 Yes 25mg Q.5D Take [address] (LOPRESSOR) 9-10 by mouth 2 Samia kes 25 MG 12:55: (two) Medical tablet 32 times Center daily. aspirin 81 2020-0 Yes 81mg Q.5D Take [address] MG chewable 9-10 by mouth 2 Samia kes tablet 12:55: (two) Medical 32 times Center daily. multivitami 2020-0 Yes 1{tbl} QD Take [address] n per 9-10 tablet by [facility] tablet 12:55: mouth Medical 32 daily. Center GLUCOSAM/CH 2020-0 Yes 2{tbl} QD Take [address] OND/HYALU/C 9-10 tablets by Samia kes F BORATE 12:55: mouth Medical (MOVE FREE 32 daily. Center [facility]) DOCOSAHEXAN 2020-0 Yes 1{capsu QD Take [address] OIC 9-10 le} capsule by [facility] ACID/EPA 12:55: mouth Medical (FISH OIL 32 daily. Center ORAL) Missing or 2020-0 Yes 1{tbl} QD [address] Non-Formula 9-10 daily. [facility] 12:55: Medical Medication 32 Center gabapentin 2020-0 Yes 100mg Q.[id number] Take [address] [facility] (NEURONTIN) 9-10 [id number] mg by L ukes 100 MG 12:55: 3D mouth 3 Medical capsule 32 (three) Center times daily. divalproex 2020-0 Yes 500mg Take [address] (DEPAKOTE) 9-10 [facility] by [facility] 250 MG 24 12:55: mouth 2 Medic al hr tablet 32 (two) Center times daily with breakfast and dinner . CLOBAZAM 2020-0 Yes 10mg Q.5D Take [address] [facility] (ONFI ORAL) 9-10 by mouth 2 Samia kes 12:55: (two) Medical 32 times Center daily . methylpheni 2020-0 Yes 20mg Take [address] [facility] date HCl 9-10 by mouth 2 [facility] (RITALIN) 12:55: (two) Medical 20 MG 32 times Center tablet daily with breakfast and lunch. metoprolol 2020-0 Yes 25mg Q.5D Take [address] (LOPRESSOR) 9-10 by mouth 2 Samia kes 25 MG 12:55: (two) Medical tablet 32 times Center daily. aspirin 81 2020-0 Yes 81mg Q.5D Take [address] MG chewable 9-10 by mouth 2 Samia kes tablet 12:55: (two) Medical 32 times Center daily. multivitami 2020-0 Yes 1{tbl} QD Take [address] n per 9-10 tablet by [facility] tablet 12:55: mouth Medical 32 daily. [place] GLUCOSAM/CH 2020-0 Yes 2{tbl} QD Take [address] OND/HYALU/C 9-10 tablets by Samia alexander F BORATE 12:55: mouth Medical (MOVE FREE 32 daily. [place] [facility]) DOCOSAHEXAN 2020-0 Yes 1{capsu QD Take [address] OIC 9-10 le} capsule by Song ACID/EPA 12:55: mouth Medical (FISH OIL 32 daily. [place] ORAL) Missing or 2020-0 Yes 1{tbl} QD [address] Non-Formula 9-10 daily. [employer] ry 12:55: Medical Medication 32 Center gabapentin 2020-0 Yes 100mg Q.[id number] Take [address] [facility] (NEURONTIN) 9-10 [id number] mg by L ukes 100 MG 12:55: 3D mouth 3 Medical capsule 32 (three) Center times daily. divalproex 2020-0 Yes 500mg Take [address] (DEPAKOTE) 9-10 [facility] by [facility] 250 MG 24 12:55: mouth 2 Medic al hr tablet 32 (two) Center times daily with breakfast and dinner . CLOBAZAM 2020-0 Yes 10mg Q.5D Take [address] [facility] (ONFI ORAL) 9-10 by mouth 2 Samia kes 12:55: (two) Medical 32 times Center daily . methylpheni 2020-0 Yes 20mg Take [address] [facility] date HCl 9-10 by mouth 2 [facility] (RITALIN) 12:55: (two) Medical 20 MG 32 times Center tablet daily with breakfast and lunch. metoprolol 2020-0 Yes 25mg Q.5D Take [address] (LOPRESSOR) 9-10 by mouth 2 Samia kes 25 MG 12:55: (two) Medical tablet 32 times Center daily. aspirin 81 2020-0 Yes 81mg Q.5D Take [address] MG chewable 9-10 by mouth 2 Samia kes tablet 12:55: (two) Medical 32 times Center daily. multivitami 2020-0 Yes 1{tbl} QD Take [address] n per 9-10 tablet by [facility] tablet 12:55: mouth Medical 32 daily. [place] GLUCOSAM/CH 2020-0 Yes 2{tbl} QD Take [address] OND/HYALU/C 9-10 tablets by Samia alexander F BORATE 12:55: mouth Medical (MOVE FREE 32 daily. [place] [facility]) DOCOSAHEXAN 2020-0 Yes 1{capsu QD Take [address] OIC 9-10 le} capsule by Song ACID/EPA 12:55: mouth Medical (FISH OIL 32 daily. [place] ORAL) Missing or 2020-0 Yes 1{tbl} QD [address] Non-Formula 9-10 daily. [facility] ry 12:55: Medical Medication 32 Center gabapentin 2020-0 Yes 100mg Q.[id number] Take [address] [facility] [address] (NEURONTIN) 9-10 [id number] mg by L ukes 100 MG 12:55: 3D mouth 3 Medical capsule 32 (three) Center times daily. divalproex 2020-0 Yes 500mg Take [address] (DEPAKOTE) 9-10 [facility] by [facility] 250 MG 24 12:55: mouth 2 Medic al hr tablet 32 (two) Center times daily with breakfast and dinner . CLOBAZAM 2020-0 Yes 10mg Q.5D Take [address] [facility] (ONFI ORAL) 9-10 by mouth 2 Samia kes 12:55: (two) Medical 32 times Center daily . methylpheni 2020-0 Yes 20mg Take [address] [facility] date HCl 9-10 by mouth 2 [facility] (RITALIN) 12:55: (two) Medical 20 MG 32 times Center tablet daily with breakfast and lunch. metoprolol 2020-0 Yes 25mg Q.5D Take [address] (LOPRESSOR) 9-10 by mouth 2 Samia kes 25 MG 12:55: (two) Medical tablet 32 times Center daily. aspirin 81 2020-0 Yes 81mg Q.5D Take [address] MG chewable 9-10 by mouth 2 Samia kes tablet 12:55: (two) Medical 32 times Center daily. multivitami 2020-0 Yes 1{tbl} QD Take [address] n per 9-10 tablet by [facility] tablet 12:55: mouth Medical 32 daily. [place] GLUCOSAM/CH 2020-0 Yes 2{tbl} QD Take [address] OND/HYALU/C 9-10 tablets by Samia alexander F BORATE 12:55: mouth Medical (MOVE FREE 32 daily. [place] [facility]) DOCOSAHEXAN 2020-0 Yes 1{capsu QD Take [address] OIC 9-10 le} capsule by Song ACID/EPA 12:55: mouth Medical (FISH OIL 32 daily. Center ORAL) Missing or 2020-0 Yes 1{tbl} QD [address] Non-Formula 9-10 daily. [facility] ry 12:55: Medical Medication 32 Center gabapentin 2020-0 Yes 100mg Q.[id number] Take [address] [facility] (NEURONTIN) 9-10 [id number] mg by L ukes 100 MG 12:55: 3D mouth 3 Medical capsule 32 (three) Center times daily. divalproex 2020-0 Yes 500mg Take [address] (DEPAKOTE) 9-10 [facility] by [facility] 250 MG 24 12:55: mouth 2 Medic al hr tablet 32 (two) Center times daily with breakfast and dinner . CLOBAZAM 2020-0 Yes 10mg Q.5D Take [address] [facility] (ONFI ORAL) 9-10 by mouth 2 Samia kes 12:55: (two) Medical 32 times Center daily . methylpheni 2020-0 Yes 20mg Take [address] [facility] date HCl 9-10 by mouth 2 [facility] (RITALIN) 12:55: (two) Medical 20 MG 32 times Center tablet daily with breakfast and lunch. metoprolol 2020-0 Yes 25mg Q.5D Take [address] (LOPRESSOR) 9-10 by mouth 2 Samia kes 25 MG 12:55: (two) Medical tablet 32 times Center daily. aspirin 81 2020-0 Yes 81mg Q.5D Take [address] MG chewable 9-10 by mouth 2 Samia kes tablet 12:55: (two) Medical 32 times Center daily. multivitami 2020-0 Yes 1{tbl} QD Take [address] n per 9-10 tablet by Song tablet 12:55: mouth Medical 32 daily. [place] GLUCOSAM/CH 2020-0 Yes 2{tbl} QD Take [address] OND/HYALU/C 9-10 tablets by Samia alexander F BORATE 12:55: mouth Medical (MOVE FREE 32 daily. [place] [facility]) DOCOSAHEXAN 2020-0 Yes 1{capsu QD Take [address] OIC 9-10 le} capsule by Song ACID/EPA 12:55: mouth Medical (FISH OIL 32 daily. Center ORAL) Missing or 2020-0 Yes 1{tbl} QD [address] Non-Formula 9-10 daily. [facility] ry 12:55: Medical Medication 32 Center gabapentin 2020-0 Yes 100mg Q.[id number] Take [address] [facility] (NEURONTIN) 9-10 [id number] mg by Kami orellanaes 100 MG 12:55: 3D mouth 3 Medical capsule 32 (three) Center times daily. divalproex 2020-0 Yes 500mg Take [address] (DEPAKOTE) 9-10 [facility] 250 MG 24 12:55: mouth 2 Medic al hr tablet 32 (two) Center times daily with breakfast and dinner . CLOBAZAM 2020-0 Yes 10mg Q.5D Take [address] [facility] (ONFI ORAL) 9-10 by mouth 2 Samia kes 12:55: (two) Medical 32 times Center daily . methylpheni 2020-0 Yes 20mg Take [address] [facility] date HCl 9-10 by mouth 2 [facility] (RITALIN) 12:55: (two) Medical 20 MG 32 times Center tablet daily with breakfast and lunch. metoprolol 2020-0 Yes 25mg Q.5D Take [address] (LOPRESSOR) 9-10 by mouth 2 Samia kes 25 MG 12:55: (two) Medical tablet 32 times Center daily. aspirin 81 2020-0 Yes 81mg Q.5D Take [address] MG chewable 9-10 by mouth 2 Samia kes tablet 12:55: (two) Medical 32 times Center daily. multivitami 2020-0 Yes 1{tbl} QD Take [address] n per 9-10 tablet by [facility] tablet 12:55: mouth Medical 32 daily. Center GLUCOSAM/CH 2020-0 Yes 2{tbl} QD Take [address] OND/HYALU/C 9-10 tablets by Samia alexander F BORATE 12:55: mouth Medical (MOVE FREE 32 daily. Center [facility]) DOCOSAHEXAN 2020-0 Yes 1{capsu QD Take [address] OIC 9-10 le} capsule by Song ACID/EPA 12:55: mouth Medical (FISH OIL 32 daily. Center ORAL) Missing or 2020-0 Yes 1{tbl} QD [address] Non-Formula 9-10 daily. [facility] ry 12:55: Medical Medication 32 Center gabapentin 2020-0 Yes 100mg Q.[id number] Take [address] [facility] (NEURONTIN) 9-10 [id number] mg by Kami ukes 100 MG 12:55: 3D mouth 3 Medical capsule 32 (three) Center times daily. divalproex 2020-0 Yes 500mg Take [address] (DEPAKOTE) 9-10 mg by Samiakes 250 MG 24 12:55: mouth 2 Medic al hr tablet 32 (two) Center times daily with breakfast and dinner . CLOBAZAM 2020-0 Yes 10mg Q.5D Take [address] [facility] (ONFI ORAL) 9-10 by mouth 2 Samia kes 12:55: (two) Medical 32 times Center daily . methylpheni 2020-0 Yes 20mg Take [address] [facility] date HCl 9-10 by mouth 2 [facility] (RITALIN) 12:55: (two) Medical 20 MG 32 times Center tablet daily with breakfast and lunch. metoprolol 2020-0 Yes 25mg Q.5D Take [address] (LOPRESSOR) 9-10 by mouth 2 Samia kes 25 MG 12:55: (two) Medical tablet 32 times Center daily. aspirin 81 2020-0 Yes 81mg Q.5D Take [address] MG chewable 9-10 by mouth 2 Samia kes tablet 12:55: (two) Medical 32 times Center daily. multivitami 2020-0 Yes 1{tbl} QD Take [address] n per 9-10 tablet by [facility] tablet 12:55: mouth Medical 32 daily. [place] GLUCOSAM/CH 2020-0 Yes 2{tbl} QD Take [address] OND/HYALU/C 9-10 tablets by Samia alexander F BORATE 12:55: mouth Medical (MOVE FREE 32 daily. [place] [facility]) DOCOSAHEXAN 2020-0 Yes 1{capsu QD Take [address] OIC 9-10 le} capsule by Song ACID/EPA 12:55: mouth Medical (FISH OIL 32 daily. Center ORAL) Missing or 2020-0 Yes 1{tbl} QD [address] Non-Formula 9-10 daily. [facility] 12:55: Medical Medication 32 Center gabapentin 2020-0 Yes 100mg Q.[id number] Take [address] [facility] (NEURONTIN) 9-10 [id number] mg by Kami orellanaes 100 MG 12:55: 3D mouth 3 Medical capsule 32 (three) Center times daily. divalproex 2020-0 Yes 500mg Take [address] (DEPAKOTE) 9-10 [facility] by [facility] 250 MG 24 12:55: mouth 2 Medic al hr tablet 32 (two) Center times daily with breakfast and dinner . CLOBAZAM 2020-0 Yes 10mg Q.5D Take [address] [facility] (ONFI ORAL) 9-10 by mouth 2 Samia kes 12:55: (two) Medical 32 times Center daily . methylpheni 2020-0 Yes 20mg Take [address] [facility] date HCl 9-10 by mouth 2 [facility] (RITALIN) 12:55: (two) Medical 20 MG 32 times Center tablet daily with breakfast and lunch. metoprolol 2020-0 Yes 25mg Q.5D Take [address] (LOPRESSOR) 9-10 by mouth 2 Samia kes 25 MG 12:55: (two) Medical tablet 32 times Center daily. aspirin 81 2020-0 Yes 81mg Q.5D Take [address] MG chewable 9-10 by mouth 2 Samia kes tablet 12:55: (two) Medical 32 times Center daily. lisinopril- 2020-0 2020- No 1{tbl} Take [address] hydroCHLORO 9-10 09-10 tablet by Samia kes thiazide 06:18: 00:00 mouth Medical (PRINZIDE,Z 30 :00 daily with Ce nter ESTORETIC) breakfast. 20-12.5 mg per tablet lisinopril- 2020-0 2020- No 1{tbl} Take [address] hydroCHLORO 9-10 09-10 tablet by Samia kes thiazide 06:18: 00:00 mouth Medical (PRINZIDE,Z 30 :00 daily with Ce nter ESTORETIC) breakfast. 20-12.5 mg per tablet lisinopril- 2020-0 2020- No 1{tbl} Take [address] hydroCHLORO 9-10 09-10 tablet by Samia kes thiazide 06:18: 00:00 mouth Medical (PRINZIDE,Z 30 :00 daily with Ce nter ESTORETIC) breakfast. 20-12.5 mg per tablet lisinopril- 2020-0 2020- No 1{tbl} Take [address] hydroCHLORO 9-10 09-10 tablet by Samia kes thiazide 06:18: 00:00 mouth Medical (PRINZIDE,Z 30 :00 daily with Ce nter ESTORETIC) breakfast. 20-12.5 mg per tablet lisinopril- 2020-0 2020- No 1{tbl} Take [address] hydroCHLORO 9-10 09-10 tablet by Samia kes thiazide 06:18: 00:00 mouth Medical (PRINZIDE,Z 30 :00 daily with Ce nter ESTORETIC) breakfast. 20-12.5 mg per tablet lisinopril- 2020-0 2020- No 1{tbl} Take [address] hydroCHLORO 9-10 09-10 tablet by Samia alexander thiazide 06:18: 00:00 mouth Medical (RAY,Jude 30 :00 daily with [facility] ESTORETIC) breakfast. 20-12.5 mg per tablet aspirin 81 2020-0 Yes 81mg Q12H Chew 81 mg [facility] MG chewable 9-10 every 12 Heal th tablet 00:00: (twelve) 00 hours. atorvastati 2020-0 Yes [facility] (Lipitor) 9-10 Health 10 MG 00:00: tablet 00 metoprolol 2020-0 Yes 25mg Q12H Take 25 mg U T tartrate 9-10 by mouth Health (Lopressor) 00:00: every 12 25 MG 00 (twelve) tablet hours. divalproex 2020-0 Yes 500mg Take 500 [facility] (Depakote 9-10 mg by Health ER) 250 MG 00:00: mouth. 24 hr 00 tablet cloBAZam 2020-0 Yes 10mg Q12H Take 10 mg [facility] (Onfi) 2.5 9-10 by mouth Healt h mg/mL 00:00: every 12 suspension 00 (twelve) hours. aspirin 81 2020-0 Yes 81mg Q12H Chew 81 mg [facility] MG chewable 9-10 every 12 Heal th tablet 00:00: (twelve) 00 hours. atorvastati 2020-0 Yes [facility] (Lipitor) 9-10 Health 10 MG 00:00: tablet 00 metoprolol 2020-0 Yes 25mg Q12H Take 25 mg [facility] T tartrate 9-10 by mouth Health (Lopressor) 00:00: every 12 25 MG 00 (twelve) tablet hours. divalproex 2020-0 Yes 500mg Take 500 [facility] (Depakote 9-10 mg by Health ER) 250 MG 00:00: mouth. 24 hr 00 tablet cloBAZam 2020-0 Yes 10mg Q12H Take 10 mg [facility] (Onfi) 2.5 9-10 by mouth Healt h mg/mL 00:00: every 12 suspension 00 (twelve) hours. aspirin 81 2020-0 Yes 81mg Q12H Chew 81 mg [facility] MG chewable 9-10 every 12 Heal th tablet 00:00: (twelve) 00 hours. atorvastati 2020-0 Yes [facility] (Lipitor) 9-10 Health 10 MG 00:00: tablet 00 metoprolol 2020-0 Yes 25mg Q12H Take 25 mg U T tartrate 9-10 by mouth Health (Lopressor) 00:00: every 12 25 MG 00 (twelve) tablet hours. cloBAZam 2020-0 Yes 10mg Q12H Take 10 mg [facility] (Onfi) 2.5 9-10 [facility] mg/mL 00:00: every 12 suspension 00 (twelve) hours. divalproex 2020-0 Yes 500mg Take 500 [facility] (Depakote 9-10 mg by [facility]) 250 MG 00:00: mouth. 24 hr 00 tablet aspirin 81 2020-0 Yes 81mg Q12H Chew 81 mg U T MG chewable 9-10 every 12 Heal th tablet 00:00: (twelve) 00 hours. cloBAZam 2020-0 Yes 10mg Q12H Take 10 mg [facility] (Onfi) 2.5 9-10 [facility] mg/mL 00:00: every 12 suspension 00 (twelve) hours. aspirin 81 2020-0 Yes 81mg Q12H Chew 81 mg [facility] MG chewable 9-10 every 12 [facility] tablet 00:00: (twelve) 00 hours. at[facility]vastati 2020-0 Yes [facility] 10 MG 00:00: tablet 00 metoprolol 2020-0 Yes 25mg Q12H Take 25 mg [facility] tartrate 9-10 [facility] (Lopressor) 00:00: every 12 25 MG 00 (twelve) tablet hours. atorvastati 2020-0 Yes [facility] 10 MG 00:00: tablet 00 divalproex 2020-0 Yes 500mg Take 500 [facility] (Depakote 9-10 mg by [facility]) 250 MG 00:00: mouth. 24 hr 00 tablet cloBAZam 2020-0 Yes 10mg Q12H Take 10 mg [facility] (Onfi) 2.5 9-10 [facility] mg/mL 00:00: every 12 suspension 00 (twelve) hours. aspirin 81 2020-0 Yes 81mg Q12H Chew 81 mg [facility] MG chewable 9-10 every 12 [facility] tablet 00:00: (twelve) 00 hours. atorvastati 2020-0 Yes [facility] 10 MG 00:00: tablet 00 metoprolol 2020-0 Yes 25mg Q12H Take 25 mg [facility] tartrate 9-10 [facility] (Lopressor) 00:00: every 12 25 MG 00 (twelve) tablet hours. divalproex 2020-0 Yes 500mg Take 500 [facility] (Depakote 9-10 [facility]) 250 MG 00:00: mouth. 24 hr 00 tablet cloBAZam 2020-0 Yes 10mg Q12H Take 10 mg [facility] (Onfi) 2.5 9-10 [facility] mg/mL 00:00: every 12 suspension 00 (twelve) hours. aspirin 81 2020-0 Yes 81mg Q12H Chew 81 mg [facility] MG chewable 9-10 every 12 [facility] tablet 00:00: (twelve) 00 hours. atorvastati 2020-0 Yes [facility]itor[facility] 10 MG 00:00: tablet 00 metoprolol 2020-0 Yes 25mg Q12H Take 25 mg [facility] tartrate 9-10 [facility] (Lopressor) 00:00: every 12 25 MG 00 (twelve) tablet hours. metoprolol 2020-0 Yes 25mg Q12H Take 25 mg [facility] tartrate 9-10 [facility] (Lopressor) 00:00: every 12 25 MG 00 (twelve) tablet hours. divalproex 2020-0 Yes 500mg Take 500 [facility] (Depakote 9-10 [facility]) 250 MG 00:00: mouth. 24 hr 00 tablet cloBAZam 2020-0 Yes 10mg Q12H Take 10 mg [facility] (Onfi) 2.5 9-10 [facility] mg/mL 00:00: every 12 suspension 00 (twelve) hours. aspirin 81 2020-0 Yes 81mg Q12H Chew 81 mg [facility] MG chewable 9-10 every 12 [facility] tablet 00:00: (twelve) 00 hours. atorvastati 2020-0 Yes [facility] ([facility]itor[facility] 10 MG 00:00: tablet 00 metoprolol 2020-0 Yes 25mg Q12H Take 25 mg [facility] tartrate 9-10 [facility] (Lopressor) 00:00: every 12 25 MG 00 (twelve) tablet hours. divalproex 2020-0 Yes 500mg Take 500 [facility] (Depakote 9-10 [facility]) 250 MG 00:00: mouth. 24 hr 00 tablet cloBAZam 2020-0 Yes 10mg Q12H Take 10 mg [facility] (Onfi) 2.5 9-10 [facility] mg/mL 00:00: every 12 suspension 00 (twelve) hours. aspirin 81 2020-0 Yes 81mg Q12H Chew 81 mg [facility] MG chewable 9-10 every 12 [facility] tablet 00:00: (twelve) 00 hours. atorvastati 2020-0 Yes [facility] (Lipitor[facility] 10 MG 00:00: tablet 00 metoprolol 2020-0 Yes 25mg Q12H Take 25 mg [facility] tartrate 9-10 [facility] (Lopressor) 00:00: every 12 25 MG 00 (twelve) tablet hours. divalproex 2020-0 Yes 500mg Take 500 [facility] (Depakote 9-10 [facility]) 250 MG 00:00: mouth. 24 hr 00 tablet cloBAZam 2020-0 Yes 10mg Q12H Take 10 mg [facility] (Onfi) 2.5 9-10 [facility] mg/mL 00:00: every 12 suspension 00 (twelve) hours. aspirin 81 2020-0 Yes 81mg Q12H Chew 81 mg [facility] MG chewable 9-10 every 12 [facility] tablet 00:00: (twelve) 00 hours. atorvastati 2020-0 Yes [facility] (Lipitor[facility] 10 MG 00:00: tablet 00 divalproex 2020-0 Yes 500mg Take 500 [facility] (Depakote 9-10 [facility]) 250 MG 00:00: mouth. 24 hr 00 tablet metoprolol 2020-0 Yes 25mg Q12H Take 25 mg [facility] tartrate 9-10 [facility] (Lopressor) 00:00: every 12 25 MG 00 (twelve) tablet hours. divalproex 2020-0 Yes 500mg Take 500 [facility] (Depakote 9-10 [facility]) 250 MG 00:00: mouth. 24 hr 00 tablet cloBAZam 2020-0 Yes 10mg Q12H Take 10 mg [facility] (Onfi) 2.5 9-10 [facility] mg/mL 00:00: every 12 suspension 00 (twelve) hours. aspirin 81 2020-0 Yes 81mg Q12H Chew 81 mg [facility] MG chewable 9-10 every 12 [facility] tablet 00:00: (twelve) 00 hours. atorvastati 2020-0 Yes [facility] (Lipitor[facility] 10 MG 00:00: tablet 00 metoprolol 2020-0 Yes 25mg Q12H Take 25 mg [facility] tartrate 9-10 [facility] (Lopressor) 00:00: every 12 25 MG 00 (twelve) tablet hours. divalproex 2020-0 Yes 500mg Take 500 [facility] (Depakote 9-10 [facility]) 250 MG 00:00: mouth. 24 hr 00 tablet cloBAZam 2020-0 Yes 10mg Q12H Take 10 mg [facility] (Onfi) 2.5 9-10 [facility] mg/mL 00:00: every 12 suspension 00 (twelve) hours. aspirin 81 2020-0 Yes 81mg Q12H Chew 81 mg [facility] MG chewable 9-10 every 12 [facility] tablet 00:00: (twelve) 00 hours. atorvastati 2020-0 Yes [facility] (Lipitor[facility] 10 MG 00:00: tablet 00 metoprolol 2020-0 Yes 25mg Q12H Take 25 mg [facility] tartrate 9-10 [facility] (Lopressor) 00:00: every 12 25 MG 00 (twelve) tablet hours. divalproex 2020-0 Yes 500mg Take 500 [facility] (Depakote 9-10 [facility]) 250 MG 00:00: mouth. 24 hr 00 tablet cloBAZam 2020-0 Yes 10mg Q12H Take 10 mg [facility] (Onfi) 2.5 9-10 [facility] mg/mL 00:00: every 12 suspension 00 (twelve) hours. aspirin 81 2020-0 Yes 81mg Q12H Chew 81 mg [facility] MG chewable 9-10 every 12 [facility] tablet 00:00: (twelve) 00 hours. atorvastati 2020-0 Yes [facility] (Lipitor[facility] 10 MG 00:00: tablet 00 metoprolol 2020-0 Yes 25mg Q12H Take 25 mg [facility] tartrate 9-10 [facility] (Lopressor) 00:00: every 12 25 MG 00 (twelve) tablet hours. cloBAZam 2020-0 Yes 10mg Q12H Take 10 mg [facility] (Onfi) 2.5 9-10 [facility] mg/mL 00:00: every 12 suspension 00 (twelve) hours. divalproex 2020-0 Yes 500mg Take 500 [facility] (Depakote 9-10 [facility]) 250 MG 00:00: mouth. 24 hr 00 tablet cloBAZam 2020-0 Yes 10mg Q12H Take 10 mg [facility] (Onfi) 2.5 9-10 [facility] mg/mL 00:00: every 12 suspension 00 (twelve) hours. aspirin 81 2020-0 Yes 81mg Q12H Chew 81 mg [facility] MG chewable 9-10 every 12 [facility] tablet 00:00: (twelve) 00 hours. atorvastati 2020-0 Yes [facility]Lipitor[facility] 10 MG 00:00: tablet 00 metoprolol 2020-0 Yes 25mg Q12H Take 25 mg [facility] tartrate 9-10 [facility] (Lopressor) 00:00: every 12 25 MG 00 (twelve) tablet hours. aspirin 81 2020-0 Yes 81mg Q12H Chew 81 mg [facility] MG chewable 9-10 every 12 [facility] tablet 00:00: (twelve) 00 hours. divalproex 2020-0 Yes 500mg Take 500 [facility] (Depakote 9-10 [facility]) 250 MG 00:00: mouth. 24 hr 00 tablet atorvastati 2020-0 Yes [facility] (Lipitor[facility]-10 [facility] 10 MG 00:00: tablet 00 cloBAZam 2020-0 Yes 10mg Q12H Take 10 mg [facility] (Onfi) 2.5 9-10 [facility] mg/mL 00:00: every 12 suspension 00 (twelve) hours. aspirin 81 2020-0 Yes 81mg Q12H Chew 81 mg [facility] MG chewable 9-10 every 12 [facility] tablet 00:00: (twelve) 00 hours. atorvastati 2020-0 Yes [facility] (Lipitor[facility]-10 [facility] 10 MG 00:00: tablet 00 metoprolol 2020-0 Yes 25mg Q12H Take 25 mg [facility] tartrate 9-10 [facility] (Lopressor) 00:00: every 12 25 MG 00 (twelve) tablet hours. divalproex 2020-0 Yes 500mg Take 500 [facility] (Depakote 9-10 mg [facility]) 250 MG 00:00: mouth. 24 hr 00 tablet cloBAZam 2020-0 Yes 10mg Q12H Take 10 mg [facility] (Onfi) 2.5 9-10 [facility] mg/mL 00:00: every 12 suspension 00 (twelve) hours. aspirin 81 2020-0 Yes 81mg Q12H Chew 81 mg [facility] MG chewable 9-10 every 12 [facility] tablet 00:00: (twelve) 00 hours. atorvastati 2020-0 Yes [facility] (Lipitor[facility]-10 [facility] 10 MG 00:00: tablet 00 metoprolol 2020-0 Yes 25mg Q12H Take 25 mg [facility] tartrate 9-10 [facility] (Lopressor) 00:00: every 12 25 MG 00 (twelve) tablet hours. divalproex 2020-0 Yes 500mg Take 500 [facility] (Depakote 9-10 [facility]) 250 MG 00:00: mouth. 24 hr 00 tablet metoprolol 2020-0 Yes 25mg Q12H Take 25 mg [facility] tartrate 9-10 [facility] (Lopressor) 00:00: every 12 25 MG 00 (twelve) tablet hours. cloBAZam 2020-0 Yes 10mg Q12H Take 10 mg [facility] (Onfi) 2.5 9-10 [facility] mg/mL 00:00: every 12 suspension 00 (twelve) hours. aspirin 81 2020-0 Yes 81mg Q12H Chew 81 mg [facility] MG chewable 9-10 every 12 [facility] tablet 00:00: (twelve) 00 hours. atorvastati 2020-0 Yes [facility] (Lipitor[facility]-10 [facility] 10 MG 00:00: tablet 00 metoprolol 2020-0 Yes 25mg Q12H Take 25 mg [facility] tartrate 9-10 [facility] (Lopressor) 00:00: every 12 25 MG 00 (twelve) tablet hours. divalproex 2020-0 Yes 500mg Take 500 [facility] (Depakote 9-10 mg by [facility]) 250 MG 00:00: mouth. 24 hr 00 tablet cloBAZam 2020-0 Yes 10mg Q12H Take 10 mg [facility] (Onfi) 2.5 9-10 [facility] mg/mL 00:00: every 12 suspension 00 (twelve) hours. aspirin 81 2020-0 Yes 81mg Q12H Chew 81 mg [facility] MG chewable 9-10 every 12 [facility] tablet 00:00: (twelve) 00 hours. atorvastati 2020-0 Yes [facility] (Lipitor[facility]-10 [facility] 10 MG 00:00: tablet 00 metoprolol 2020-0 Yes 25mg Q12H Take 25 mg [facility] tartrate 9-10 [facility] (Lopressor) 00:00: every 12 25 MG 00 (twelve) tablet hours. divalproex 2020-0 Yes 500mg Take 500 [facility] (Depakote 9-10 mg by [facility]) 250 MG 00:00: mouth. 24 hr 00 tablet divalproex 2020-0 Yes 500mg Take 500 [facility] (Depakote 9-10 mg by [facility]) 250 MG 00:00: mouth. 24 hr 00 tablet cloBAZam 2020-0 Yes 10mg Q12H Take 10 mg [facility] (Onfi) 2.5 9-10 [facility] mg/mL 00:00: every 12 suspension 00 (twelve) hours. aspirin 81 2020-0 Yes 81mg Q12H Chew 81 mg [facility] MG chewable 9-10 every 12 [facility] tablet 00:00: (twelve) 00 hours. atorvastati 2020-0 Yes [facility]Lipitor[facility]-10 [facility] 10 MG 00:00: tablet 00 metoprolol 2020-0 Yes 25mg Q12H Take 25 mg [facility] tartrate 9-10 [facility] (Lopressor) 00:00: every 12 25 MG 00 (twelve) tablet hours. divalproex 2020-0 Yes 500mg Take 500 [facility] (Depakote 9-10 mg by [facility]) 250 MG 00:00: mouth. 24 hr 00 tablet cloBAZam 2020-0 Yes 10mg Q12H Take 10 mg [facility] (Onfi) 2.5 9-10 [facility] mg/mL 00:00: every 12 suspension 00 (twelve) hours. aspirin 81 2020-0 Yes 81mg Q12H Chew 81 mg [facility] MG chewable 9-10 every 12 [facility] tablet 00:00: (twelve) 00 hours. atorvastati 2020-0 Yes [facility] (Lipitor[facility]-10 [facility] 10 MG 00:00: tablet 00 metoprolol 2020-0 Yes 25mg Q12H Take 25 mg [facility] tartrate 9-10 [facility] (Lopressor) 00:00: every 12 25 MG 00 (twelve) tablet hours. divalproex 2020-0 Yes 500mg Take 500 [facility] (Depakote 9-10 mg by [facility]) 250 MG 00:00: mouth. 24 hr 00 tablet cloBAZam 2020-0 Yes 10mg Q12H Take 10 mg [facility] (Onfi) 2.5 9-10 [facility] mg/mL 00:00: every 12 suspension 00 (twelve) hours. aspirin 81 2020-0 Yes 81mg Q12H Chew 81 mg [facility] MG chewable 9-10 every 12 [facility] tablet 00:00: (twelve) 00 hours. atorvastati 2020-0 Yes [facility] (Lipitor[facility]-10 [facility] 10 MG 00:00: tablet 00 cloBAZam 2020-0 Yes 10mg Q12H Take 10 mg [facility] (Onfi) 2.5 9-10 [facility] mg/mL 00:00: every 12 suspension 00 (twelve) hours. metoprolol 2020-0 Yes 25mg Q12H Take 25 mg [facility] tartrate 9-10 [facility] (Lopressor) 00:00: every 12 25 MG 00 (twelve) tablet hours. divalproex 2020-0 Yes 500mg Take 500 [facility] (Depakote 9-10 mg by [facility]) 250 MG 00:00: mouth. 24 hr 00 tablet aspirin 81 2020-0 Yes 81mg Q12H Chew 81 mg [facility] MG chewable 9-10 every 12 [facility] tablet 00:00: (twelve) 00 hours. cloBAZam 2020-0 Yes 10mg Q12H Take 10 mg [facility] (Onfi) 2.5 9-10 [facility] mg/mL 00:00: every 12 suspension 00 (twelve) hours. aspirin 81 2020-0 Yes 81mg Q12H Chew 81 mg [facility] T MG chewable 9-10 every 12 [facility] tablet 00:00: (twelve) 00 hours. atorvastati 2020-0 Yes [facility] (Lipitor[facility]10 [facility] 10 MG 00:00: tablet 00 atorvastati 2020-0 Yes [facility] (Lipitor[facility] 9-10 [facility] 10 MG 00:00: tablet 00 metoprolol 2020-0 Yes 25mg Q12H Take 25 mg [facility] tartrate 9-10 [facility] (Lopressor) 00:00: every 12 25 MG 00 (twelve) tablet hours. divalproex 2020-0 Yes 500mg Take 500 [facility] (Depakote 9-10 mg by [facility]) 250 MG 00:00: mouth. 24 hr 00 tablet cloBAZam 2020-0 Yes 10mg Q12H Take 10 mg [facility] (Onfi) 2.5 9-10 [facility] mg/mL 00:00: every 12 suspension 00 (twelve) hours. aspirin 81 2020-0 Yes 81mg Q12H Chew 81 mg [facility] T MG chewable 9-10 every 12 [facility] tablet 00:00: (twelve) 00 hours. atorvastati 2020-0 Yes [facility] (Lipitor[facility]-10 [facility] 10 MG 00:00: tablet 00 metoprolol 2020-0 Yes 25mg Q12H Take 25 mg [facility] tartrate 9-10 by [facility] (Lopressor) 00:00: every 12 25 MG 00 (twelve) tablet hours. metoprolol 2020-0 Yes 25mg Q12H Take 25 mg [facility] tartrate 9-10 [facility] (Lopressor) 00:00: every 12 25 MG 00 (twelve) tablet hours. divalproex 2020-0 Yes 500mg Take 500 [facility] (Depakote 9-10 mg by [facility]) 250 MG 00:00: mouth. 24 hr 00 tablet cloBAZam 2020-0 Yes 10mg Q12H Take 10 mg [facility] (Onfi) 2.5 9-10 [facility] mg/mL 00:00: every 12 suspension 00 (twelve) hours. aspirin 81 2020-0 Yes 81mg Q12H Chew 81 mg [facility] T MG chewable 9-10 every 12 [facility] tablet 00:00: (twelve) 00 hours. atorvastati 2020-0 Yes [facility] (Lipitor[facility]-10 [facility] 10 MG 00:00: tablet 00 metoprolol 2020-0 Yes 25mg Q12H Take 25 mg [facility] tartrate 9-10 by [facility] (Lopressor) 00:00: every 12 25 MG 00 (twelve) tablet hours. divalproex 2020-0 Yes 500mg Take 500 [facility] (Depakote 9-10 mg by [facility]) 250 MG 00:00: mouth. 24 hr 00 tablet cloBAZam 2020-0 Yes 10mg Q12H Take 10 mg [facility] (Onfi) 2.5 9-10 [facility] mg/mL 00:00: every 12 suspension 00 (twelve) hours. aspirin 81 2020-0 Yes 81mg Q12H Chew 81 mg [facility] T MG chewable 9-10 every 12 [facility] tablet 00:00: (twelve) 00 hours. divalproex 2020-0 Yes 500mg Take 500 [facility] (Depakote 9-10 mg by [facility]) 250 MG 00:00: mouth. 24 hr 00 tablet atorvastati 2020-0 Yes [facility] (Lipitor) 9-10 [facility] 10 MG 00:00: tablet 00 metoprolol 2020-0 Yes 25mg Q12H Take 25 mg [facility] tartrate 9-10 by [facility] (Lopressor) 00:00: every 12 25 MG 00 (twelve) tablet hours. divalproex 2020-0 Yes 500mg Take 500 [facility] (Depakote 9-10 mg by [facility]) 250 MG 00:00: mouth. 24 hr 00 tablet cloBAZam 2020-0 Yes 10mg Q12H Take 10 mg [facility] (Onfi) 2.5 9-10 [facility] mg/mL 00:00: every 12 suspension 00 (twelve) hours. aspirin 81 2020-0 Yes 81mg Q12H Chew 81 mg [facility] T MG chewable 9-10 every 12 [facility] tablet 00:00: (twelve) 00 hours. atorvastati 2020-0 Yes [facility] (Lipitor[facility]-10 [facility] 10 MG 00:00: tablet 00 metoprolol 2020-0 Yes 25mg Q12H Take 25 mg [facility] tartrate 9-10 by [facility] (Lopressor) 00:00: every 12 25 MG 00 (twelve) tablet hours. divalproex 2020-0 Yes 500mg Take 500 [facility] (Depakote 9-10 mg by [facility]) 250 MG 00:00: mouth. 24 hr 00 tablet cloBAZam 2020-0 Yes 10mg Q12H Take 10 mg [facility] (Onfi) 2.5 9-10 [facility] mg/mL 00:00: every 12 suspension 00 (twelve) hours. aspirin 81 2020-0 Yes 81mg Q12H Chew 81 mg U T MG chewable 9-10 every 12 [facility] tablet 00:00: (twelve) 00 hours. atorvastati 2020-0 Yes [facility] (Lipitor[facility]-10 [facility] 10 MG 00:00: tablet 00 metoprolol 2020-0 Yes 25mg Q12H Take 25 mg [facility] tartrate 9-10 by [facility] (Lopressor) 00:00: every 12 25 MG 00 (twelve) tablet hours. cloBAZam 2020-0 Yes 10mg Q12H Take 10 mg [facility] (Onfi) 2.5 9-10 [facility] mg/mL 00:00: every 12 suspension 00 (twelve) hours. divalproex 2020-0 Yes 500mg Take 500 [facility] (Depakote 9-10 mg by [facility]) 250 MG 00:00: mouth. 24 hr 00 tablet aspirin 81 2020-0 Yes 81mg Q12H Chew 81 mg [facility] T MG chewable 9-10 every 12 [facility] tablet 00:00: (twelve) 00 hours. cloBAZam 2020-0 Yes 10mg Q12H Take 10 mg [facility] (Onfi) 2.5 9-10 [facility] mg/mL 00:00: every 12 suspension 00 (twelve) hours. aspirin 81 2020-0 Yes 81mg Q12H Chew 81 mg [facility] T MG chewable 9-10 every 12 [facility] tablet 00:00: (twelve) 00 hours. atorvastati 2020-0 Yes [facility] (Lipitor[facility]-10 [facility] 10 MG 00:00: tablet 00 atorvastati 2020-0 Yes [facility] (Lipitor) 9-10 [facility] 10 MG 00:00: tablet 00 metoprolol 2020-0 Yes 25mg Q12H Take 25 mg [facility] tartrate 9-10 by [facility] (Lopressor) 00:00: every 12 25 MG 00 (twelve) tablet hours. divalproex 2020-0 Yes 500mg Take 500 [facility] (Depakote 9-10 mg by [facility]) 250 MG 00:00: mouth. 24 hr 00 tablet metoprolol 2020-0 Yes 25mg Q12H Take 25 mg [facility] tartrate 9-10 by [facility] (Lopressor) 00:00: every 12 25 MG 00 (twelve) tablet hours. divalproex 2020-0 Yes 500mg Take 500 [facility] (Depakote 9-10 mg by [facility] ER) 250 MG 00:00: mouth. 24 hr 00 tablet cloBAZam 2020-0 Yes 10mg Q12H Take 10 mg [facility] (Onfi) 2.5 9-10 [facility] mg/mL 00:00: every 12 suspension 00 (twelve) hours. atorvastati 2019-0 2020- No 10mg QD Take [address] [facility] (LIP[facility]OR) 9-10 12-09 tablet (10 [facility] 10 MG 00:00: 23:59 mg total) [facility] :[facility] for 90 days. atorvastati 2019-0 2020- No 10mg QD Take [address] [facility] (LIP[facility]) 9-10 12-09 tablet (10 [facility] 10 MG 00:00: 23:59 mg total) [facility] tablet 00 :00 [facility] night[facility] for 90 days. atorvastati 2019-0 2020- No 10mg QD Take [address] [facility] (LIP[facility]) 9-10 12-09 tablet (10 [facility] 10 MG 00:00: 23:59 mg total) [facility] tablet 00 :00 [facility] nightly for 90 days. atorvastati 2019-0 2020- No 10mg QD Take [address] [facility] (LIP[facility]) 9-10 12-09 tablet (10 [facility] 10 MG 00:00: 23:59 mg total) [facility] tablet 00 :00 [facility] night[facility] for 90 days. atorvastati 2019-0 2020- No 10mg QD Take [address] [facility] (LIP[facility]) 9-10 12-09 tablet (10 [facility] 10 MG 00:00: 23:59 mg total) [facility] tablet 00 :00 [facility] night[facility] for 90 days. atorvastati 2019-0 2020- No 10mg QD Take [address] [facility] (LIP[facility]) 9-10 12-09 tablet (10 [facility] 10 MG 00:00: 23:59 mg total) [facility] tablet 00 :00 [facility] night[facility] for 90 days. atorvastati 2019-0 2020- No 10mg QD Take [address] [facility] (LIP[facility]) 9-10 12-09 tablet (10 [facility] 10 MG 00:00: 23:59 mg total) [facility] tablet 00 :00 [facility] night[facility] for 90 days. atorvastati 2020-0 2020- No 10mg QD Take [address] [facility] (LIP[facility]) 9-10 12-09 tablet (10 [facility] 10 MG 00:00: 23:59 mg total) [facility] tablet 00 :00 by [facility] nightly for 90 days. gabapentin 2020-0 Yes 100mg Q8H Take 100 [facility] (Neurontin) 8-07 mg by [facility] 100 MG 00:00: mouth capsule 00 every 8 (eight) hours. gabapentin 2020-0 Yes 100mg Q8H Take 100 [facility] (Neurontin) 8-07 mg by [facility] 100 MG 00:00: mouth capsule 00 every 8 (eight) hours. gabapentin 2020-0 Yes 100mg Q8H Take 100 [facility] (Neurontin) 8-07 mg by [facility] 100 MG 00:00: mouth capsule 00 every 8 (eight) hours. gabapentin 2020-0 Yes 100mg Q8H Take 100 [facility] (Neurontin) 8-07 mg by [facility] 100 MG 00:00: mouth capsule 00 every 8 (eight) hours. gabapentin 2020-0 Yes 100mg Q8H Take 100 [facility] (Neurontin) 8-07 mg by [facility] 100 MG 00:00: mouth capsule 00 every 8 (eight) hours. gabapentin 2020-0 Yes 100mg Q8H Take 100 [facility] (Neurontin) 8-07 mg by [facility] 100 MG 00:00: mouth capsule 00 every 8 (eight) hours. gabapentin 2020-0 Yes 100mg Q8H Take 100 [facility] (Neurontin) 8-07 mg by [facility] 100 MG 00:00: mouth capsule 00 every 8 (eight) hours. gabapentin 2020-0 Yes 100mg Q8H Take 100 [facility] (Neurontin) 8-07 mg by [facility] 100 MG 00:00: mouth capsule 00 every 8 (eight) hours. gabapentin 2020-0 Yes 100mg Q8H Take 100 [facility] (Neurontin) 8-07 mg by [facility] 100 MG 00:00: mouth capsule 00 every 8 (eight) hours. gabapentin 2020-0 Yes 100mg Q8H Take 100 [facility] (Neurontin) 8-07 mg by [facility] 100 MG 00:00: mouth capsule 00 every 8 (eight) hours. gabapentin 2020-0 Yes 100mg Q8H Take 100 [facility] (Neurontin) 8-07 mg by [facility] 100 MG 00:00: mouth capsule 00 every 8 (eight) hours. gabapentin 2020-0 Yes 100mg Q8H Take 100 [facility] (Neurontin) 8-07 mg by [facility] 100 MG 00:00: mouth capsule 00 every 8 (eight) hours. gabapentin 2020-0 Yes 100mg Q8H Take 100 [facility] (Neurontin) 8-07 mg by [facility] 100 MG 00:00: mouth capsule 00 every 8 (eight) hours. gabapentin 2020-0 Yes 100mg Q8H Take 100 [facility] (Neurontin) 8-07 mg by [facility] 100 MG 00:00: mouth capsule 00 every 8 (eight) hours. gabapentin 2020-0 Yes 100mg Q8H Take 100 [facility] (Neurontin) 8-07 mg by [facility] 100 MG 00:00: mouth capsule 00 every 8 (eight) hours. gabapentin 2020-0 Yes 100mg Q8H Take 100 [facility] (Neurontin) 8-07 mg by [facility] 100 MG 00:00: mouth capsule 00 every 8 (eight) hours. gabapentin 2020-0 Yes 100mg Q8H Take 100 [facility] (Neurontin) 8-07 mg by [facility] 100 MG 00:00: mouth capsule 00 every 8 (eight) hours. gabapentin 2020-0 Yes 100mg Q8H Take 100 [facility] (Neurontin) 8-07 mg by [facility] 100 MG 00:00: mouth capsule 00 every 8 (eight) hours. gabapentin 2020-0 Yes 100mg Q8H Take 100 [facility] (Neurontin) 8-07 mg by [facility] 100 MG 00:00: mouth capsule 00 every 8 (eight) hours. gabapentin 2020-0 Yes 100mg Q8H Take 100 [facility] (Neurontin) 8-07 mg by [facility] 100 MG 00:00: mouth capsule 00 every 8 (eight) hours. gabapentin 2020-0 Yes 100mg Q8H Take 100 [facility] (Neurontin) 8-07 mg by [facility] 100 MG 00:00: mouth capsule 00 every 8 (eight) hours. gabapentin 2020-0 Yes 100mg Q8H Take 100 [facility] (Neurontin) 8-07 mg by [facility] 100 MG 00:00: mouth capsule 00 every 8 (eight) hours. gabapentin 2020-0 Yes 100mg Q8H Take 100 [facility] (Neurontin) 8-07 mg by [facility] 100 MG 00:00: mouth capsule 00 every 8 (eight) hours. gabapentin 2020-0 Yes 100mg Q8H Take 100 [facility] (Neurontin) 8-07 mg by [facility] 100 MG 00:00: mouth capsule 00 every 8 (eight) hours. gabapentin 2020-0 Yes 100mg Q8H Take 100 [facility] (Neurontin) 8-07 mg by [facility] 100 MG 00:00: mouth capsule 00 every 8 (eight) hours. gabapentin 2020-0 Yes 100mg Q8H Take 100 [facility] (Neurontin) 8-07 mg by [facility] 100 MG 00:00: mouth capsule 00 every 8 (eight) hours. gabapentin 2020-0 Yes 100mg Q8H Take 100 [facility] (Neurontin) 8-07 mg by [facility] 100 MG 00:00: mouth capsule 00 every 8 (eight) hours. gabapentin 2020-0 Yes 100mg Q8H Take 100 [facility] (Neurontin) 8-07 mg by [facility] 100 MG 00:00: mouth capsule 00 every 8 (eight) hours. gabapentin 2020-0 Yes 100mg Q8H Take 100 [facility] (Neurontin) 8-07 mg by [facility] 100 MG 00:00: mouth capsule 00 every 8 (eight) hours. gabapentin 2020-0 Yes [id number] 100mg Take 1 [facility] 8-07 9105 capsule by [facility] capsule 00:00: mouth 3 (three) [facility] times [facility] daily. gabapentin 2020-0 Yes 100mg Q8H Take 100 [facility] (Neurontin) 8-07 mg by [facility] 100 MG 00:00: mouth capsule 00 every 8 (eight) hours. gabapentin 2020-0 Yes [id number] 100mg Take 1 [facility] 100 mg 8- 9105 capsule by [facility] capsule 00:00: mouth ([facility] times [facility] daily. gabapentin 2020-0 Yes 100mg Q8H Take 100 [facility] (Neurontin) 8-07 mg by [facility] 100 MG 00:00: mouth capsule 00 every 8 (eight) hours. gabapentin 2020-0 Yes [id number] 100mg Take 1 [facility] 100 mg 8- 9105 capsule by [facility] capsule 00:00: mouth () [facility] times [facility] daily. gabapentin 2020-0 Yes [id number] 100mg Take 1 [facility] 100 mg 8- 9105 capsule by [facility] capsule 00:00: mouth (three) [facility] times [facility] daily. gabapentin 2020-0 Yes [id number] 100mg Take 1 [facility] 100 mg 8- 9105 capsule by [facility] capsule 00:00: mouth (three) [facility] times [facility] daily. gabapentin 2020-0 Yes [id number] 100mg Take 1 [facility] 100 mg 8- 9105 capsule by [facility] capsule 00:00: mouth (three) [facility] times [facility] daily. gabapentin 2020-0 Yes [id number] 100mg Take 1 [facility] 100 mg 8- 9105 capsule by [facility] capsule 00:00: mouth (three) [facility] times [facility] daily. gabapentin 2020-0 Yes [id number] 100mg Take 1 [facility] 100 mg 8-07 9105 capsule by [facility] capsule 00:00: mouth 3 (three) [facility] times [facility] daily. gabapentin 2020-0 Yes [id number] 100mg Take 1 [facility] 100 mg 8-07 9105 capsule by [facility] capsule 00:00: mouth 3 (three) [facility] times [facility] daily. gabapentin 2020-0 Yes [id number] 100mg Take 1 [facility] 100 mg 8-07 9105 capsule by [facility] capsule 00:00: mouth 3 (three) [facility] times [facility] daily. gabapentin 2020-0 Yes [id number] 100mg Take 1 [facility] 100 mg 8-07 9105 capsule by [facility] capsule 00:00: mouth 3 (three) [facility] times [facility] daily. gabapentin 2020-0 Yes [id number] 100mg Take 1 [facility] 100 mg 8-07 9105 capsule by [facility] capsule 00:00: mouth 3 (three) [facility] times [facility] daily. gabapentin 2020-0 Yes [id number] 100mg Take 1 [facility] 100 mg 8-07 9105 capsule by [facility] capsule 00:00: mouth (three) Medical times [facility] daily. gabapentin 2020-0 Yes [id number] 100mg Take 1 [facility] 100 mg 8-07 9105 capsule by [facility] capsule 00:00: mouth (three) [facility] times [facility] daily. gabapentin 2020-0 Yes [id number] 100mg Take 1 [facility] 100 mg 8-07 9105 capsule by [facility] capsule 00:00: mouth (three) Medical times [facility] daily. gabapentin 2020-0 Yes [id number] 100mg Take 1 [facility] 100 mg 8-07 9105 capsule by [facility] capsule 00:00: mouth (three) Medical times [facility] daily. gabapentin 2020-0 Yes [id number] 100mg Take 1 [facility] 100 mg 8-07 9105 capsule by [facility] capsule 00:00: mouth 3 (three) Medical times [facility] daily. gabapentin 2020-0 Yes [id number] 100mg Take 1 [facility] 100 mg 8-07 9105 capsule by [facility] capsule 00:00: mouth 3 (three) Medical times [facility] daily. gabapentin 2020-0 Yes [id number] 100mg Take 1 [facility] 100 mg 8-07 9105 capsule by [facility] capsule 00:00: mouth (three) Medical times [facility] daily. gabapentin 2020-0 Yes [id number] 100mg Take 1 [facility] 100 mg 8-07 9105 capsule by [facility] capsule 00:00: mouth (three) Medical times [facility] daily. gabapentin 2020-0 Yes [id number] 100mg Take 1 [facility] 100 mg 8-07 9105 capsule by [facility] of capsule 00:00: mouth (three) Medical times Branch daily. gabapentin 2020-0 Yes [id number] 100mg Take 1 [facility] 100 mg 8-07 9105 capsule by [facility] capsule 00:00: mouth (three) Medical times Branch daily. gabapentin 2020-0 Yes [id number] 100mg Take 1 [facility] 100 mg 8-07 9105 capsule by [facility] capsule 00:00: mouth (three) Medical times Branch daily. gabapentin 2020-0 Yes [id number] 100mg Take 1 [facility] 100 mg 8-07 9105 capsule by [facility] capsule 00:00: mouth (three) Medical times Branch daily. gabapentin 2020-0 Yes [id number] 100mg Take 1 [facility] 100 mg 8-07 9105 capsule by [facility] capsule 00:00: mouth (three) Medical times Branch daily. gabapentin 2020-0 Yes [id number] 100mg Take 1 [facility] 100 mg 8-07 9105 capsule by [facility] capsule 00:00: mouth (three) Medical times Branch daily. gabapentin 2020-0 Yes [id number] 100mg Take 1 [facility] 100 mg 8-07 9105 capsule by [facility] capsule 00:00: mouth (three) Medical times Branch daily. gabapentin 2020-0 Yes [id number] 100mg Take 1 [facility] 100 mg 8-07 9105 capsule by [facility] capsule 00:00: mouth (three) Medical times Branch daily. gabapentin 2020-0 Yes [id number] 100mg Take 1 [facility] 100 mg 8-07 9105 capsule by [facility] capsule 00:00: mouth (three) Medical times Branch daily. gabapentin 2020-0 Yes [id number] 100mg Take 1 [facility] 100 mg 8-07 9105 capsule by [facility] capsule 00:00: mouth (three) Medical times Branch daily. gabapentin 2020-0 Yes [id number] 100mg Take 1 [facility] 100 mg 12-02 9105 capsule by [facility] capsule 00:00: mouth 3 00 (three) Medical times Branch daily. gabapentin 2020-0 2021- No [id number] 100mg Take 1 [facility] 100 mg 807-26 9105 capsule by [facility] capsule 00:00: 00:00 mouth 3 [place] 00 :00 (three) Medical times Branch daily. cloBAZam 2019-0 Yes [id number] 1{tbl} Take 1 [facility] (ONFI) 10 7-24 tablet by [facility] o f mg Tab 00:00: mouth 2 (two) Medical times Branch daily. cloBAZam 2019- Yes [id number] 1{tbl} Take 1 [facility] (ONFI) 10 7-24 tablet by [facility] o f mg Tab 00:00: mouth 2 (two) Medical times Branch daily. cloBAZam 2019- Yes [id number] 1{tbl} Take 1 [facility] (ONFI) 10 7-24 tablet by [facility] o f mg Tab 00:00: mouth 2 (two) Medical times Branch daily. cloBAZam 2019- Yes [id number] 1{tbl} Take 1 [facility] (ONFI) 10 7-24 tablet by [facility] o f mg Tab 00:00: mouth 2 (two) Medical times Branch daily. cloBAZam 2019- Yes [id number] 1{tbl} Take 1 [facility] (ONFI) 10 7-24 tablet by [facility] o f mg Tab 00:00: mouth 2 (two) Medical times Branch daily. cloBAZam 2019- Yes [id number] 1{tbl} Take 1 [facility] (ONFI) 10 7-24 tablet by [facility] o f mg Tab 00:00: mouth 2 (two) Medical times Branch daily. cloBAZam 2019-0 Yes [id number] 1{tbl} Take 1 [facility] (ONFI) 10 7-24 tablet by [facility] o f mg Tab 00:00: mouth 2 (two) Medical times Branch daily. cloBAZam 2019- Yes [id number] 1{tbl} Take 1 [facility] (ONFI) 10 7-24 tablet by [facility] o f mg Tab 00:00: mouth 2 [place] 00 (two) Medical times Branch daily. cloBAZam 2020-0 Yes [id number] 1{tbl} Take 1 [facility] (ONFI) 10 7-24 tablet by [facility] o f mg Tab 00:00: mouth 2 (two) Medical times Branch daily. cloBAZam 2020-0 Yes [id number] 1{tbl} Take 1 [facility] (ONFI) 10 7-24 tablet by [facility] o f mg Tab 00:00: mouth 2 (two) Medical times Branch daily. cloBAZam 2020-0 Yes [id number] 1{tbl} Take 1 [facility] (ONFI) 10 7-24 tablet by [facility] o f mg Tab 00:00: mouth 2 (two) Medical times Branch daily. cloBAZam 2020-0 Yes [id number] 1{tbl} Take 1 [facility] (ONFI) 10 7-24 tablet by [facility] o f mg Tab 00:00: mouth 2 (two) Medical times Branch daily. cloBAZam 2020-0 Yes [id number] 1{tbl} Take 1 [facility] (ONFI) 10 7-24 tablet by [facility] o f mg Tab 00:00: mouth 2 (two) Medical times Branch daily. cloBAZam 2020-0 Yes [id number] 1{tbl} Take 1 [facility] (ONFI) 10 7-24 tablet by [facility] o f mg Tab 00:00: mouth 2 (two) Medical times Branch daily. cloBAZam 2020-0 Yes [id number] 1{tbl} Take 1 [facility] (ONFI) 10 7-24 tablet by [facility] o f mg Tab 00:00: mouth 2 (two) Medical times Branch daily. cloBAZam 2020-0 Yes [id number] 1{tbl} Take 1 [facility] (ONFI) 10 7-24 tablet by [facility] o f mg Tab 00:00: mouth 2 (two) Medical times Branch daily. cloBAZam 2020-0 Yes [id number] 1{tbl} Take 1 [facility] (ONFI) 10 7-24 tablet by [facility] o f mg Tab 00:00: mouth 2 (two) Medical times Branch daily. cloBAZam 2020-0 Yes [id number] 1{tbl} Take 1 [facility] (ONFI) 10 7-24 tablet by [facility] o f mg Tab 00:00: mouth 2 [place] 00 (two) Medical times Branch daily. cloBAZam 2020-0 2020- No [id number] 1{tbl} Take 1 [facility] (ONFI) 10 7 02-12 tablet by [facility] of mg Tab 00:00: 00:00 mouth 2 [place] 00 :00 (two) Medical times Branch daily. cloBAZam 2020-0 2020- No [id number] 1{tbl} Take 1 [facility] (ONFI) 10 7 02-12 tablet by [facility] of mg Tab 00:00: 00:00 mouth 2 [place] 00 :00 (two) Medical times Branch daily. methylpheni 2020-0 Yes [id number] TAKE 1 [facility] date HCl 6-08 TABLET BY [facility] of (RITALIN) 00:00: MOUTH [place] 20 mg 00 THREE Medical tablet TIMES Branch DAILY methylpheni 2020-0 Yes [id number] TAKE 1 [facility] date HCl 6-08 TABLET BY [facility] of (RITALIN) 00:00: MOUTH [place] 20 mg 00 THREE Medical tablet TIMES Branch DAILY methylpheni 2020-0 Yes [id number] TAKE 1 [facility] date HCl 6-08 TABLET BY [facility] of (RITALIN) 00:00: MOUTH [place] 20 mg 00 THREE Medical tablet TIMES Branch DAILY methylpheni 2020-0 Yes [id number] TAKE 1 [facility] date HCl 6-08 TABLET BY [facility] of (RITALIN) 00:00: MOUTH [place] 20 mg 00 THREE Medical tablet TIMES Branch DAILY methylpheni 2020-0 Yes [id number] TAKE 1 [facility] date HCl 6-08 TABLET BY [facility] of (RITALIN) 00:00: MOUTH [place] 20 mg 00 THREE Medical tablet TIMES Branch DAILY methylpheni 2020-0 Yes [id number] TAKE 1 [facility] date HCl 6-08 TABLET BY [facility] of (RITALIN) 00:00: MOUTH [place] 20 mg 00 THREE Medical tablet TIMES Branch DAILY methylpheni 2020-0 Yes [id number] TAKE 1 [facility] date HCl 6-08 TABLET BY [facility] of (RITALIN) 00:00: MOUTH [place] 20 mg 00 THREE Medical tablet TIMES Branch DAILY methylpheni 2020-0 Yes [id number] TAKE 1 [facility] date HCl 6-08 TABLET BY [facility]y of (RITALIN) 00:00: MOUTH [place] 20 mg 00 THREE Medical tablet TIMES Branch DAILY methylpheni 2020-0 Yes [id number] TAKE 1 [facility] date HCl 6-08 TABLET BY [facility] of (RITALIN) 00:00: MOUTH [place] 20 mg 00 THREE Medical tablet TIMES Branch DAILY methylpheni 2020-0 Yes [id number] TAKE 1 [facility] date HCl 6-08 TABLET BY [facility] of (RITALIN) 00:00: MOUTH [place] 20 mg 00 THREE Medical tablet TIMES Branch DAILY methylpheni 2020-0 Yes [id number] TAKE 1 [facility] date HCl 6-08 TABLET BY [facility] of (RITALIN) 00:00: MOUTH [place] 20 mg 00 THREE Medical tablet TIMES Branch DAILY methylpheni 2020-0 Yes [id number] TAKE 1 [facility] date HCl 6-08 TABLET BY [facility] of (RITALIN) 00:00: MOUTH [place] 20 mg 00 THREE Medical tablet TIMES Branch DAILY methylpheni 2020-0 Yes [id number] TAKE 1 [facility] date HCl 6-08 TABLET BY [facility]y of (RITALIN) 00:00: MOUTH [place] 20 mg 00 THREE Medical tablet TIMES Branch DAILY methylpheni 2020-0 Yes [id number] TAKE 1 [facility] date HCl 6-08 TABLET BY [facility] of (RITALIN) 00:00: MOUTH [place] 20 mg 00 THREE Medical tablet TIMES Branch DAILY methylpheni 2020-0 Yes [id number] TAKE 1 [facility] date HCl 6-08 TABLET BY [facility] of (RITALIN) 00:00: MOUTH [place] 20 mg 00 THREE Medical tablet TIMES Branch DAILY methylpheni 2020-0 Yes [id number] TAKE 1 [facility] date HCl 6-08 TABLET BY [facility]y of (RITALIN) 00:00: MOUTH [place] 20 mg 00 THREE Medical tablet TIMES Branch DAILY methylpheni 2020-0 Yes [id number] TAKE 1 [facility] date HCl 6-08 TABLET BY [facility]y of (RITALIN) 00:00: MOUTH [place] 20 mg 00 THREE Medical tablet TIMES Branch DAILY methylpheni 2020-0 Yes [id number] TAKE 1 [facility] date HCl 6-08 TABLET BY [facility]y of (RITALIN) 00:00: MOUTH [place] 20 mg 00 THREE Medical tablet TIMES Branch DAILY methylpheni 2020-0 Yes [id number] TAKE 1 [facility] date HCl 6-08 TABLET BY [facility] of (RITALIN) 00:00: MOUTH [place] 20 mg 00 THREE Medical tablet TIMES Branch DAILY methylpheni 2020-0 Yes [id number] TAKE 1 [facility] date HCl 6-08 TABLET BY [facility]y of (RITALIN) 00:00: MOUTH [place] 20 mg 00 THREE Medical tablet TIMES Branch DAILY methylpheni 2020-0 Yes [id number] TAKE 1 [facility] date HCl 6-08 TABLET BY [facility] of (RITALIN) 00:00: MOUTH [place] 20 mg 00 THREE Medical tablet TIMES Branch DAILY methylpheni 2020-0 Yes [id number] TAKE 1 [facility] date HCl 6-08 TABLET BY [facility] of (RITALIN) 00:00: MOUTH [place] 20 mg 00 THREE Medical tablet TIMES Branch DAILY methylpheni 2020-0 Yes [id number] TAKE 1 [facility] date HCl 6-08 TABLET BY [facility]y of (RITALIN) 00:00: MOUTH [place] 20 mg 00 THREE Medical tablet TIMES Branch DAILY methylpheni 2020-0 Yes [id number] TAKE 1 [facility] date HCl 6-08 TABLET BY [facility] of (RITALIN) 00:00: MOUTH [place] 20 mg 00 THREE Medical tablet TIMES Branch DAILY methylpheni 2020-0 Yes [id number] TAKE 1 [facility] date HCl 6-08 TABLET BY [facility] of (RITALIN) 00:00: MOUTH [place] 20 mg 00 THREE Medical tablet TIMES Branch DAILY methylpheni 2020-0 2021- No [id number] TAKE 1 [facility] date HCl 6-08 03-11 TABLET BY ity o f (RITALIN) 00:00: 00:00 MOUTH [place] 20 mg 00 :00 THREE Medical tablet TIMES Branch DAILY divalproex 2020-0 Yes [id number] 500mg Take 1 [facility] ER 500 mg 3-23 tablet by ity o f 24 hr 00:00: mouth [place] tablet 00 every 12 Medical (twelve) Branch hours. divalproex 2020-0 Yes [id number] 500mg Take 1 [facility] ER 500 mg 3-23 tablet by it[facility] o f 24 hr 00:00: mouth [place] tablet 00 every 12 Medical (twelve) Branch hours. divalproex 2020-0 Yes [id number] 500mg Take 1 [facility] ER 500 mg 3-23 tablet by [facility] o f 24 hr 00:00: mouth [place] tablet 00 every 12 Medical (twelve) Branch hours. divalproex 2020-0 Yes [id number] 500mg Take 1 [facility] ER 500 mg 3-23 tablet by [facility] o f 24 hr 00:00: mouth [place] tablet 00 every 12 Medical (twelve) Branch hours. divalproex 2020-0 Yes [id number] 500mg Take 1 [facility] ER 500 mg 3-23 tablet by [facility] o f 24 hr 00:00: mouth [place] tablet 00 every 12 Medical (twelve) Branch hours. divalproex 2020-0 Yes [id number] 500mg Take 1 [facility] ER 500 mg 3-23 tablet by [facility] o f 24 hr 00:00: mouth [place] tablet 00 every 12 Medical (twelve) Branch hours. divalproex 2020-0 Yes [id number] 500mg Take 1 [facility] ER 500 mg 3-23 tablet by [facility] o f 24 hr 00:00: mouth [place] tablet 00 every 12 Medical (twelve) Branch hours. divalproex 2020-0 Yes [id number] 500mg Take 1 [facility] ER 500 mg 3-23 tablet by [facility] o f 24 hr 00:00: mouth [place] tablet 00 every 12 Medical (twelve) Branch hours. divalproex 2020-0 Yes [id number] 500mg Take 1 [facility] ER 500 mg 3-23 tablet by [facility] o f 24 hr 00:00: mouth [place] tablet 00 every 12 Medical (twelve) Branch hours. divalproex 2020-0 Yes [id number] 500mg Take 1 [facility] ER 500 mg 3-23 tablet by [facility] o f 24 hr 00:00: mouth [place] tablet 00 every 12 Medical (twelve) Branch hours. divalproex 2020-0 Yes [id number] 500mg Take 1 [facility] ER 500 mg 3-23 tablet by [facility] o f 24 hr 00:00: mouth [place] tablet 00 every 12 Medical (twelve) Branch hours. divalproex 2020-0 Yes [id number] 500mg Take 1 [facility] ER 500 mg 3-23 tablet by [facility] o f 24 hr 00:00: mouth [place] tablet 00 every 12 Medical (twelve) Branch hours. divalproex 2020-0 Yes [id number] 500mg Take 1 [facility] ER 500 mg 3-23 tablet by ity o f 24 hr 00:00: mouth [place] tablet 00 every 12 Medical (twelve) Branch hours. divalproex 2020-0 Yes [id number] 500mg Take 1 [facility] ER 500 mg 3-23 tablet by [facility] o f 24 hr 00:00: mouth [place] tablet 00 every 12 Medical (twelve) Branch hours. divalproex 2020-0 Yes [id number] 500mg Take 1 [facility] ER 500 mg 3-23 tablet by [facility]y o f 24 hr 00:00: mouth [place] tablet 00 every 12 Medical (twelve) Branch hours. divalproex 2020-0 Yes [id number] 500mg Take 1 [facility] ER 500 mg 3-23 tablet by [facility] o f 24 hr 00:00: mouth [place] tablet 00 every 12 Medical (twelve) Branch hours. divalproex 2020-0 Yes [id number] 500mg Take 1 [facility] ER 500 mg 3-23 tablet by [facility] o f 24 hr 00:00: mouth [place] tablet 00 every 12 Medical (twelve) Branch hours. divalproex 2020-0 Yes [id number] 500mg Take 1 [facility] ER 500 mg 3-23 tablet by [facility]y o f 24 hr 00:00: mouth [place] tablet 00 every 12 Medical (twelve) Branch hours. divalproex 2020-0 Yes [id number] 500mg Take 1 [facility] ER 500 mg 3-23 tablet by [facility]y o f 24 hr 00:00: mouth [place] tablet 00 every 12 Medical (twelve) Branch hours. divalproex 2020-0 Yes [id number] 500mg Take 1 [facility] ER 500 mg 3-23 tablet by [facility]y o f 24 hr 00:00: mouth [place] tablet 00 every 12 Medical (twelve) Branch hours. divalproex 2020-0 Yes [id number] 500mg Take 1 [facility] ER 500 mg 3-23 tablet by [facility]y o f 24 hr 00:00: mouth [place] tablet 00 every 12 Medical (twelve) Branch hours. divalproex 2020-0 2020- No [id number] 500mg Take 1 [facility] ER 500 mg 3-23 11-17 tablet by [facility]y of 24 hr 00:00: 00:00 mouth [place] tablet 00 :00 every 12 Medical (twelve) Branch hours. VALPROIC 2020-0 2020- No Take by [facility] ers ACID ORAL 3-02 03-02 mouth. ity of 16:52: 00:00 [place] 13 :00 Medical Branch VALPROIC 2020-0 2020- No Take by [facility] ers ACID ORAL 3-02 03-02 mouth. ity of 16:52: 00:00 [place] 13 :00 Medical Branch cloBAZam 2020-0 Yes 1{tbl} Take 1 [facility] (Onfi) 10 3-02 tablet by [facility]alt [facility] tablet 00:00: mouth. 00 cloBAZam 2020-0 Yes 1{tbl} Take 1 [facility] (Onfi) 10 3-02 tablet by [facility]alt [facility] MG tablet 00:00: mouth. 00 cloBAZam 2020-0 Yes 1{tbl} Take 1 [facility] (Onfi) 10 3-02 tablet by [facility]alt [facility] MG tablet 00:00: mouth. 00 cloBAZam 2020-0 Yes 1{tbl} Take 1 [facility] (Onfi) 10 3-02 tablet by [facility] MG tablet 00:00: mouth. 00 cloBAZam 2020-0 Yes 1{tbl} Take 1 [facility] (Onfi) 10 3-02 tablet by [facility]alt [facility] MG tablet 00:00: mouth. 00 cloBAZam 2020-0 Yes 1{tbl} Take 1 [facility] (Onfi) 10 3-02 tablet by [facility]alt [facility] MG tablet 00:00: mouth. 00 cloBAZam 2020-0 Yes 1{tbl} Take 1 [facility] (Onfi) 10 3-02 tablet by [facility] MG tablet 00:00: mouth. 00 cloBAZam 2019-0 Yes 1{tbl} Take 1 [facility] (Onfi) 10 3-02 tablet by [facility]alt [facility] MG tablet 00:00: mouth. 00 cloBAZam 2020-0 Yes 1{tbl} Take 1 [facility] (Onfi) 10 3-02 tablet by [facility]alt [facility] MG tablet 00:00: mouth. 00 cloBAZam 2020-0 Yes 1{tbl} Take 1 [facility] (Onfi) 10 3-02 tablet by [facility] MG tablet 00:00: mouth. 00 cloBAZam 2020-0 Yes 1{tbl} Take 1 [facility] (Onfi) 10 3-02 tablet by [facility]alt [facility] MG tablet 00:00: mouth. 00 cloBAZam 2020-0 Yes 1{tbl} Take 1 [facility] (Onfi) 10 3-02 tablet by [facility] MG tablet 00:00: mouth. 00 cloBAZam 2020-0 Yes 1{tbl} Take 1 [facility] (Onfi) 10 3-02 tablet by [facility]alt [facility] MG tablet 00:00: mouth. 00 cloBAZam 2020-0 Yes 1{tbl} Take 1 [facility] (Onfi) 10 3-02 tablet by [facility] MG tablet 00:00: mouth. 00 cloBAZam 2020-0 Yes 1{tbl} Take 1 [facility] (Onfi) 10 3-02 tablet by [facility] MG tablet 00:00: mouth. 00 cloBAZam 2020-0 Yes 1{tbl} Take 1 [facility] (Onfi) 10 3-02 tablet by [facility] MG tablet 00:00: mouth. 00 cloBAZam 2020-0 Yes 1{tbl} Take 1 [facility] (Onfi) 10 3-02 tablet by [facility] MG tablet 00:00: mouth. 00 cloBAZam 2020-0 Yes 1{tbl} Take 1 [facility] (Onfi) 10 3-02 tablet by [facility] MG tablet 00:00: mouth. 00 cloBAZam 2020-0 Yes 1{tbl} Take 1 [facility] (Onfi) 10 3-02 tablet by [facility] MG tablet 00:00: mouth. 00 cloBAZam 2020-0 Yes 1{tbl} Take 1 [facility] (Onfi) 10 3-02 tablet by [facility] MG tablet 00:00: mouth. 00 cloBAZam 2019-0 Yes 1{tbl} Take 1 [facility] (Onfi) 10 3-02 tablet by [facility] MG tablet 00:00: mouth. 00 cloBAZam 2019-0 Yes 1{tbl} Take 1 [facility] (Onfi) 10 3-02 tablet by [facility] MG tablet 00:00: mouth. 00 cloBAZam 2019-0 Yes 1{tbl} Take 1 [facility] (Onfi) 10 3-02 tablet by [facility] MG tablet 00:00: mouth. 00 cloBAZam 2020-0 Yes 1{tbl} Take 1 [facility] (Onfi) 10 3-02 tablet by [facility] MG tablet 00:00: mouth. 00 cloBAZam 2020-0 Yes 1{tbl} Take 1 [facility] (Onfi) 10 3-02 tablet by [facility] MG tablet 00:00: mouth. 00 cloBAZam 2020-0 Yes 1{tbl} Take 1 [facility] (Onfi) 10 3-02 tablet by [facility] MG tablet 00:00: mouth. 00 cloBAZam 2020-0 Yes 1{tbl} Take 1 [facility] (Onfi) 10 3-02 tablet by [facility] MG tablet 00:00: mouth. 00 cloBAZam 2020-0 Yes 1{tbl} Take 1 [facility] (Onfi) 10 3-02 tablet by [facility]alt [facility] MG tablet 00:00: mouth. 00 cloBAZam 2020-0 Yes 1{tbl} Take 1 [facility] (Onfi) 10 3-02 tablet by [facility]alt [facility] MG tablet 00:00: mouth. 00 cloBAZam 2020-0 Yes 1{tbl} Take 1 [facility] (Onfi) 10 3-02 tablet by [facility] MG tablet 00:00: mouth. 00 cloBAZam 2020-0 Yes 1{tbl} Take 1 [facility] (Onfi) 10 3-02 tablet by [facility] MG tablet 00:00: mouth. 00 cloBAZam 2020-0 Yes [id number] 1{tbl} Take 1 [facility] (ONFI) 10 3-02 tablet by ity o f mg Tab 00:00: mouth 2 [place] 00 (two) Medical times Branch daily. divalproex 2020-0 Yes [id number] 500mg Take 1 [facility] ER 500 mg 3-02 tablet by ity o f 24 hr 00:00: mouth [place] tablet 00 every 12 Medical (twelve) Branch hours. cloBAZam 2020-0 Yes [id number] 1{tbl} Take 1 [facility] (ONFI) 10 3-02 tablet by ity o f mg Tab 00:00: mouth 2 [place] (two) Medical times Branch daily. divalproex 2020-0 Yes [id number] 500mg Take 1 [facility] ER 500 mg 3-02 tablet by [facility]y o f 24 hr 00:00: mouth [place] tablet 00 every 12 Medical (twelve) Branch hours. cloBAZam 2020-0 Yes [id number] 1{tbl} Take 1 [facility] (ONFI) 10 3-02 tablet by ity o f mg Tab 00:00: mouth 2 [place] 00 (two) Medical times Branch daily. divalproex 2020-0 Yes [id number] 500mg Take 1 [facility] ER 500 mg 3-02 tablet by [facility]y o f 24 hr 00:00: mouth [place] tablet 00 every 12 Medical (twelve) Branch hours. cloBAZam 2020-0 Yes [id number] 1{tbl} Take 1 [facility] (ONFI) 10 3-02 tablet by ity o f mg Tab 00:00: mouth 2 [place] 00 (two) Medical times Branch daily. divalproex 2020-0 Yes [id number] 500mg Take 1 [facility] ER 500 mg 3-02 tablet by [facility]y o f 24 hr 00:00: mouth [place] tablet 00 every 12 Medical (twelve) Branch hours. cloBAZam 2020-0 Yes [id number] 1{tbl} Take 1 [facility] (ONFI) 10 3-02 tablet by ity o f mg Tab 00:00: mouth 2 [place] (two) Medical times Branch daily. cloBAZam 2020-0 Yes [id number] 1{tbl} Take 1 [facility] (ONFI) 10 3-02 tablet by ity o f mg Tab 00:00: mouth 2 00 (two) Medical times Branch daily. cloBAZam 2020-0 Yes [id number] 1{tbl} Take 1 [facility] (ONFI) 10 3-02 tablet by ity o f mg Tab 00:00: mouth 2 00 (two) Medical times Branch daily. cloBAZam 2020-0 Yes [id number] 1{tbl} Take 1 [facility] (ONFI) 10 3-02 tablet by ity o f mg Tab 00:00: mouth 2 (two) Medical times Branch daily. cloBAZam 2020-0 Yes [id number] 1{tbl} Take 1 [facility] (ONFI) 10 3-02 tablet by ity o f mg Tab 00:00: mouth 2 00 (two) Medical times Branch daily. cloBAZam 2020-0 Yes [id number] 1{tbl} Take 1 [facility] (ONFI) 10 3-02 tablet by ity o f mg Tab 00:00: mouth 2 00 (two) Medical times Branch daily. cloBAZam 2020-0 Yes [id number] 1{tbl} Take 1 [facility] (ONFI) 10 3-02 tablet by ity o f mg Tab 00:00: mouth 2 (two) Medical times Branch daily. cloBAZam 2020-0 Yes [id number] 1{tbl} Take 1 [facility] (ONFI) 10 3-02 tablet by ity o f mg Tab 00:00: mouth 2 (two) Medical times Branch daily. divalproex 2020-0 2020- No [id number] 500mg Take 1 [facility] ER 500 mg 3-02 03-23 tablet by [facility]y of 24 hr 00:00: 00:00 mouth [place] tablet 00 :00 every 12 Medical (twelve) Branch hours. divalproex 2020-0 2020- No [id number] 500mg Take 1 [facility] ER 500 mg 3-02 03-23 tablet by [facility] of 24 hr 00:00: 00:00 mouth [place] tablet 00 :00 every 12 Medical (twelve) Branch hours. methylpheni 2020-0 Yes 20mg Take 20 mg [facility] date 1-24 by mouth. [facility] (Ritalin) 00:00: 20 MG 00 tablet methylpheni 2020-0 Yes 20mg Take 20 mg [facility] date 1-24 by mouth. [facility] (Ritalin) 00:00: 20 MG 00 tablet methylpheni 2020-0 Yes 20mg Take 20 mg [facility] date 1-24 by mouth. [facility] (Ritalin) 00:00: 20 MG 00 tablet methylpheni 2020-0 Yes 20mg Take 20 mg [facility] date 1-24 by mouth. Health (Ritalin) 00:00: 20 MG 00 tablet methylpheni 2020-0 Yes 20mg Take 20 mg [facility] date 1-24 by mouth. [facility] (Ritalin) 00:00: 20 MG 00 tablet methylpheni 2020-0 Yes 20mg Take 20 mg [facility] date 1-24 by mouth. [facility] (Ritalin) 00:00: 20 MG 00 tablet methylpheni 2020-0 Yes 20mg Take 20 mg [facility] date 1-24 by mouth. [facility] (Ritalin) 00:00: 20 MG 00 tablet methylpheni 2020-0 Yes 20mg Take 20 mg [facility] date 1-24 by mouth. [facility] (Ritalin) 00:00: 20 MG 00 tablet methylpheni 2020-0 Yes 20mg Take 20 mg [facility] date 1-24 by mouth. Health (Ritalin) 00:00: 20 MG 00 tablet methylpheni 2020-0 Yes 20mg Take 20 mg [facility] date 1-24 by mouth. [facility] (Ritalin) 00:00: 20 MG 00 tablet methylpheni 2020-0 Yes 20mg Take 20 mg [facility] date 1-24 by mouth. Health (Ritalin) 00:00: 20 MG 00 tablet methylpheni 2020-0 Yes 20mg Take 20 mg [facility] date 1-24 by mouth. Health (Ritalin) 00:00: 20 MG 00 tablet methylpheni 2020-0 Yes 20mg Take 20 mg [facility] date 1-24 by mouth. Health (Ritalin) 00:00: 20 MG 00 tablet methylpheni 2020-0 Yes 20mg Take 20 mg [facility] date 1-24 by mouth. Health (Ritalin) 00:00: 20 MG 00 tablet methylpheni 2020-0 Yes 20mg Take 20 mg [facility] date 1-24 by mouth. Health (Ritalin) 00:00: 20 MG 00 tablet methylpheni 2020-0 Yes 20mg Take 20 mg [facility] date 1-24 by mouth. Health (Ritalin) 00:00: 20 MG 00 tablet methylpheni 2020-0 Yes 20mg Take 20 mg [facility] date 1-24 by mouth. Health (Ritalin) 00:00: 20 MG 00 tablet methylpheni 2020-0 Yes 20mg Take 20 mg [facility] date 1-24 by mouth. Health (Ritalin) 00:00: 20 MG 00 tablet methylpheni 2020-0 Yes 20mg Take 20 mg [facility] date 1-24 by mouth. Health (Ritalin) 00:00: 20 MG 00 tablet methylpheni 2020-0 Yes 20mg Take 20 mg [facility] date 1-24 by mouth. Health (Ritalin) 00:00: 20 MG 00 tablet methylpheni 2020-0 Yes 20mg Take 20 mg [facility] date 1-24 by mouth. Health (Ritalin) 00:00: 20 MG 00 tablet methylpheni 2020-0 Yes 20mg Take 20 mg [facility] date 1-24 by mouth. Health (Ritalin) 00:00: 20 MG 00 tablet methylpheni 2020-0 Yes 20mg Take 20 mg [facility] date 1-24 by mouth. Health (Ritalin) 00:00: 20 MG 00 tablet methylpheni 2020-0 Yes 20mg Take 20 mg [facility] date 1-24 by mouth. Health (Ritalin) 00:00: 20 MG 00 tablet methylpheni 2020-0 Yes 20mg Take 20 mg [facility] date 1-24 by mouth. Health (Ritalin) 00:00: 20 MG 00 tablet methylpheni 2020-0 Yes 20mg Take 20 mg [facility] date 1-24 by mouth. Health (Ritalin) 00:00: 20 MG 00 tablet methylpheni 2020-0 Yes 20mg Take 20 mg [facility] date 1-24 by mouth. Health (Ritalin) 00:00: 20 MG 00 tablet methylpheni 2020-0 Yes 20mg Take 20 mg [facility] date 1-24 by mouth. Health (Ritalin) 00:00: 20 MG 00 tablet methylpheni 2020-0 Yes 20mg Take 20 mg [facility] date 1-24 by mouth. Health (Ritalin) 00:00: 20 MG 00 tablet methylpheni 2020-0 Yes 20mg Take 20 mg [facility] date 1-24 by mouth. Health (Ritalin) 00:00: 20 MG 00 tablet methylpheni 2020-0 Yes 20mg Take 20 mg [facility] date 24 by mouth. Health (Ritalin) 00:00: 20 MG 00 tablet RITALIN 20 2020-0 Yes [id number] TAKE 1 [facility] mg tablet 1-24 TABLET BY ity o f 00:00: MOUTH [place] THREE Medical TIMES Branch DAILY RITALIN 20 2020-0 Yes [id number] TAKE 1 [facility] mg tablet 1-24 TABLET BY ity o f 00:00: MOUTH [place] THREE Medical TIMES Branch DAILY RITALIN 20 2020-0 Yes [id number] TAKE 1 [facility] mg tablet 1-24 TABLET BY ity o f 00:00: [facility] THREE Medical TIMES Branch DAILY RITALIN 20 2020-0 Yes [id number] TAKE 1 [facility] mg tablet 1-24 TABLET BY ity o f 00:00: [facility] THREE Medical TIMES Branch DAILY RITALIN 20 2020-0 Yes [id number] TAKE 1 [facility] mg tablet 1-24 TABLET BY ity o f 00:00: [facility] THREE Medical TIMES Branch DAILY RITALIN 20 2020-0 Yes [id number] TAKE 1 [facility] mg tablet 1-24 TABLET BY ity o f 00:00: [facility] THREE Medical TIMES Branch DAILY RITALIN 20 2020-0 Yes [id number] TAKE 1 [facility] mg tablet 1-24 TABLET BY ity o f 00:00: [facility] THREE Medical TIMES Branch DAILY RITALIN 20 2020-0 Yes [id number] TAKE 1 [facility] mg tablet 1-24 TABLET BY ity o f 00:00: [facility] THREE Medical TIMES Branch DAILY RITALIN 20 2020-0 Yes [id number] TAKE 1 [facility] mg tablet 1-24 TABLET BY ity o f 00:00: [facility] THREE Medical TIMES Branch DAILY RITALIN 20 2020-0 Yes [id number] TAKE 1 [facility] mg tablet 1-24 TABLET BY ity o f 00:00: [facility] THREE Medical TIMES Branch DAILY RITALIN 20 2020-0 Yes [id number] TAKE 1 [facility] mg tablet 1-24 TABLET BY ity o f 00:00: [facility] THREE Medical TIMES Branch DAILY RITALIN 20 2020-0 2020- No [id number] TAKE 1 [facility] mg tablet 1-24 06-08 TABLET BY ity of 00:00: 00:00 [facility] 00 :00 THREE Medical TIMES Branch DAILY divalproex 2019- Yes 500mg Take 1 Univ ers ER 500 mg 1-15 tablet by ity o f 24 hr 00:00: mouth [place] tablet 00 every 12 Medical (twelve) Branch hours. divalproex 2019- Yes 500mg Take 1 [facility] ers ER 500 mg 1-15 tablet by ity o f 24 hr 00:00: mouth [place] tablet 00 every 12 Medical (twelve) Branch hours. divalproex 2019- Yes 500mg Take 1 [facility] ers ER 500 mg 1-15 tablet by ity o f 24 hr 00:00: mouth [place] tablet 00 every 12 Medical (twelve) Branch hours. divalproex 2019- Yes 500mg Take 1 [facility] ers ER 500 mg 1-15 tablet by ity o f 24 hr 00:00: mouth [place] tablet 00 every 12 Medical (twelve) Branch hours. divalproex 2018- Yes 500mg Take 1 [facility] ers ER 500 mg 1-15 tablet by ity o f 24 hr 00:00: mouth [place] tablet 00 every 12 Medical (twelve) Branch hours. divalproex 2018- 2020- No 500mg Take 1 [facility] vers ER 500 mg 1-15 03-02 tablet by ity of 24 hr 00:00: 00:00 mouth [place] tablet 00 :00 every 12 Medical (twelve) Branch hours. divalproex 2018- 2020- No 500mg Take 1 [facility] ER 500 mg 1-15 03-02 tablet by ity of 24 hr 00:00: 00:00 mouth [place] tablet 00 :00 every 12 Medical (twelve) Branch hours. divalproex 2019-0 Yes 500mg Take 500 [facility] (Depakote 6-21 mg by [facility]) 500 MG 00:00: mouth. 24 hr 00 tablet divalproex 2019-0 Yes 500mg Take 500 [facility] (Depakote 6-21 mg by Health ER) 500 MG 00:00: mouth. 24 hr 00 tablet divalproex 2019-0 Yes 500mg Take 500 [facility] (Depakote 6-21 mg by [facility] ER) 500 MG 00:00: mouth. 24 hr 00 tablet divalproex 2019-0 Yes 500mg Take 500 [facility] (Depakote 6-21 mg by [facility] ER) 500 MG 00:00: mouth. 24 hr 00 tablet divalproex 2019-0 Yes 500mg Take 500 [facility] (Depakote 6-21 mg by [facility]) 500 MG 00:00: mouth. 24 hr 00 tablet divalproex 2019-0 Yes 500mg Take 500 [facility] (Depakote 6-21 mg by [facility]) 500 MG 00:00: mouth. 24 hr 00 tablet divalproex 2019-0 Yes 500mg Take 500 [facility] (Depakote 6-21 mg by [facility]) 500 MG 00:00: mouth. 24 hr 00 tablet divalproex 2019-0 Yes 500mg Take 500 [facility] (Depakote 6-21 mg by [facility] ER) 500 MG 00:00: mouth. 24 hr 00 tablet divalproex 2019-0 Yes 500mg Take 500 [facility] (Depakote 6-21 mg by [facility] ER) 500 MG 00:00: mouth. 24 hr 00 tablet divalproex 2019-0 Yes 500mg Take 500 [facility] (Depakote 6-21 mg by [facility]) 500 MG 00:00: mouth. 24 hr 00 tablet divalproex 2019-0 Yes 500mg Take 500 [facility] (Depakote 6-21 mg by [facility] ER) 500 MG 00:00: mouth. 24 hr 00 tablet divalproex 2019-0 Yes 500mg Take 500 [facility] (Depakote 6-21 mg by [facility] ER) 500 MG 00:00: mouth. 24 hr 00 tablet divalproex 2019-0 Yes 500mg Take 500 [facility] (Depakote 6-21 mg by [facility] ER) 500 MG 00:00: mouth. 24 hr 00 tablet divalproex 2019-0 Yes 500mg Take 500 [facility] (Depakote 6-21 mg by [facility]) 500 MG 00:00: mouth. 24 hr 00 tablet divalproex 2019-0 Yes 500mg Take 500 [facility] (Depakote 6-21 mg by [facility]) 500 MG 00:00: mouth. 24 hr 00 tablet divalproex 2019-0 Yes 500mg Take 500 [facility] (Depakote 6-21 mg by [facility]) 500 MG 00:00: mouth. 24 hr 00 tablet divalproex 2019-0 Yes 500mg Take 500 [facility] (Depakote 6-21 mg by [facility]) 500 MG 00:00: mouth. 24 hr 00 tablet divalproex 2019-0 Yes 500mg Take 500 [facility] (Depakote 6-21 mg by [facility] ER) 500 MG 00:00: mouth. 24 hr 00 tablet divalproex 2019-0 Yes 500mg Take 500 [place] (Depakote 6-21 mg by [facility] ER) 500 MG 00:00: mouth. 24 hr 00 tablet divalproex 2019-0 Yes 500mg Take 500 [facility] (Depakote 6-21 mg by [facility]) 500 MG 00:00: mouth. 24 hr 00 tablet divalproex 2019-0 Yes 500mg Take 500 [facility] (Depakote 6-21 mg by [facility] ER) 500 MG 00:00: mouth. 24 hr 00 tablet divalproex 2019-0 Yes 500mg Take 500 [facility] (Depakote 6-21 mg by [facility] ER) 500 MG 00:00: mouth. 24 hr 00 tablet divalproex 2019-0 Yes 500mg Take 500 [facility] (Depakote 6-21 mg by [facility] ER) 500 MG 00:00: mouth. 24 hr 00 tablet divalproex 2019-0 Yes 500mg Take 500 [facility] (Depakote 6-21 mg by [facility] ER) 500 MG 00:00: mouth. 24 hr 00 tablet divalproex 2019-0 Yes 500mg Take 500 [facility] (Depakote 6-21 mg by [facility] ER) 500 MG 00:00: mouth. 24 hr 00 tablet divalproex 2019-0 Yes 500mg Take 500 [facility] (Depakote 6-21 mg by [facility] ER) 500 MG 00:00: mouth. 24 hr 00 tablet divalproex 2019-0 Yes 500mg Take 500 [facility] (Depakote 6-21 mg by [facility] ER) 500 MG 00:00: mouth. 24 hr 00 tablet divalproex 2019-0 Yes 500mg Take 500 [facility] (Depakote 6-21 mg by [facility] ER) 500 MG 00:00: mouth. 24 hr 00 tablet divalproex 2019-0 Yes 500mg Take 500 [facility] (Depakote 6-21 mg by [facility] ER) 500 MG 00:00: mouth. 24 hr 00 tablet divalproex 2019-0 Yes 500mg Take 500 [facility] (Depakote 6-21 mg by [facility] ER) 500 MG 00:00: mouth. 24 hr 00 tablet divalproex 2019-0 Yes 500mg Take 500 [facility] (Depakote 6-21 mg by [facility]) 500 MG 00:00: mouth. 24 hr 00 tablet divalproex 2019-0 Yes 500mg Take 1 [facility] ER 500 mg 6-21 tablet by ity o f 24 hr 00:00: mouth [place] tablet 00 every 12 Medical (twelve) Branch hours. divalproex 2019-0 Yes 500mg Take 1 [facility] ER 500 mg 6-21 tablet by ity o f 24 hr 00:00: mouth [place] tablet 00 every 12 Medical (twelve) Branch hours. divalproex 2019-0 Yes 500mg Take 1 [facility] ER 500 mg 6-21 tablet by ity o f 24 hr 00:00: mouth [place] tablet 00 every 12 Medical (twelve) Branch hours. divalproex 2019-0 Yes 500mg Take 1 [facility] ER 500 mg 6-21 tablet by ity o f 24 hr 00:00: mouth [place] tablet 00 every 12 Medical (twelve) Branch hours. divalproex 2019-0 Yes 500mg Take 1 [facility] ER 500 mg 6-21 tablet by ity o f 24 hr 00:00: mouth [place] tablet 00 every 12 Medical (twelve) Branch hours. divalproex 2019-0 Yes 500mg Take 1 [facility] ER 500 mg 6-21 tablet by ity o f 24 hr 00:00: mouth [place] tablet 00 every 12 Medical (twelve) Branch hours. aspirin 81 2019-0 Yes 81mg Take 81 mg U nivers mg chewable 6-11 by mouth. ity of tablet 21:43: [address] aspirin 81 2019-0 Yes 81mg Take 81 mg U nivers mg chewable 6-11 by mouth. ity of tablet 21:43: [address] metoprolol 2019-0 Yes 25mg Take 25 mg U nivers tartrate 25 6-11 by mouth. ity of mg tablet 21:43: [address] multivitami 2019-0 Yes 1{tbl} Take 1 Un aria n tablet 6-11 tablet by ity of 21:43: mouth. [address] metoprolol 2019-0 Yes 25mg Take 25 mg U nivers tartrate 25 6-11 by mouth. ity of mg tablet 21:43: [address] aspirin 81 2019-0 Yes 81mg Take 81 mg U nivers mg chewable 6-11 by mouth. ity of tablet 21:43: [address] metoprolol 2019-0 Yes 25mg Take 25 mg U nivers tartrate 25 6-11 by mouth. ity of mg tablet 21:43: [address] multivitami 2019 Yes 1{tbl} Take 1 Un aria n tablet 6-11 tablet by ity of 21:43: mouth. [address] multivitami Yes 1{tbl} Take 1 Un aria n tablet 6-11 tablet by ity of 21:43: mouth. [address] aspirin 81 Yes 81mg Take 81 mg U nivers mg chewable 6-11 by mouth. ity of tablet 21:43: [address] metoprolol 2019 Yes 25mg Take 25 mg U nivers tartrate 25 6-11 by mouth. ity of mg tablet 21:43: [address] multivitami Yes 1{tbl} Take 1 Un aria n tablet 6-11 tablet by ity of 21:43: mouth. [address] aspirin 81 Yes 81mg Take 81 mg U nivers mg chewable 6-11 by mouth. ity of tablet 21:43: [address] metoprolol Yes 25mg Take 25 mg U nivers tartrate 25 6-11 by mouth. ity of mg tablet 21:43: [address] multivitami Yes 1{tbl} Take 1 Un aria n tablet 6-11 tablet by ity of 21:43: mouth. [address] aspirin 81 Yes 81mg Take 81 mg U nivers mg chewable 6-11 by mouth. ity of tablet 21:43: [address] metoprolol 2019 Yes 25mg Take 25 mg U nivers tartrate 25 6-11 by mouth. ity of mg tablet 21:43: [address] multivitami Yes 1{tbl} Take 1 Un aria n tablet 6-11 tablet by ity of 21:43: mouth. [address] aspirin 81 Yes 81mg Take 81 mg U nivers mg chewable 6-11 by mouth. ity of tablet 21:43: [address] metoprolol 2019- Yes 25mg Take 25 mg U nivers tartrate 25 6-11 by mouth. ity of mg tablet 21:43: [address] multivitami Yes 1{tbl} Take 1 Un aria n tablet 6-11 tablet by ity of 21:43: mouth. [address] aspirin 81 2019 Yes 81mg Take 81 mg U nivers mg chewable 6-11 by mouth. ity of tablet 21:43: [address] metoprolol 2019-0 Yes 25mg Take 25 mg U nivers tartrate 25 6-11 by mouth. ity of mg tablet 21:43: [address] multivitami 2019 Yes 1{tbl} Take 1 Un aria n tablet 6-11 tablet by ity of 21:43: mouth. [address] aspirin 81 2019 Yes 81mg Take 81 mg U nivers mg chewable 6-11 by mouth. ity of tablet 21:43: [address] metoprolol 2019- Yes 25mg Take 25 mg U nivers tartrate 25 6-11 by mouth. ity of mg tablet 21:43: [address] multivitami Yes 1{tbl} Take 1 Un aria n tablet 6-11 tablet by ity of 21:43: mouth. [address] aspirin 81 Yes 81mg Take 81 mg U nivers mg chewable 6-11 by mouth. ity of tablet 21:43: [address] metoprolol 2019 Yes 25mg Take 25 mg U nivers tartrate 25 6-11 by mouth. ity of mg tablet 21:43: [address] aspirin 81 Yes 81mg Take 81 mg U nivers mg chewable 6-11 by mouth. ity of tablet 21:43: [address] multivitami 2019 Yes 1{tbl} Take 1 Un aria n tablet 6-11 tablet by ity of 21:43: mouth. [address] aspirin 81 0 Yes 81mg Take 81 mg U nivers mg chewable 6-11 by mouth. ity of tablet 21:43: [address] metoprolol 2019-0 Yes 25mg Take 25 mg U nivers tartrate 25 6-11 by mouth. ity of mg tablet 21:43: [address] multivitami 2019 Yes 1{tbl} Take 1 Un aria n tablet 6-11 tablet by ity of 21:43: mouth. [address] metoprolol 2019-0 Yes 25mg Take 25 mg U nivers tartrate 25 6-11 by mouth. ity of mg tablet 21:43: [address] aspirin 81 2019 Yes 81mg Take 81 mg U nivers mg chewable 6-11 by mouth. ity of tablet 21:43: [address] metoprolol 2019- Yes 25mg Take 25 mg U nivers tartrate 25 6-11 by mouth. ity of mg tablet 21:43: [address] multivitami 2019 Yes 1{tbl} Take 1 Un aira n tablet 6-11 tablet by ity of 21:43: mouth. [address] multivitami 2019 Yes 1{tbl} Take 1 Un aria n tablet 6-11 tablet by ity of 21:43: mouth. [address] aspirin 81 Yes 81mg Take 81 mg U nivers mg chewable 6-11 by mouth. ity of tablet 21:43: [address] metoprolol 2019 Yes 25mg Take 25 mg U nivers tartrate 25 6-11 by mouth. ity of mg tablet 21:43: [address] multivitami Yes 1{tbl} Take 1 Un aria n tablet 6-11 tablet by ity of 21:43: mouth. [address] aspirin 81 Yes 81mg Take 81 mg U nivers mg chewable 6-11 by mouth. ity of tablet 21:43: [address] metoprolol 2019 Yes 25mg Take 25 mg U nivers tartrate 25 6-11 by mouth. ity of mg tablet 21:43: [address] multivitami 2019 Yes 1{tbl} Take 1 Un aria n tablet 6-11 tablet by ity of 21:43: mouth. [address] aspirin 81 2019-0 Yes 81mg Take 81 mg U nivers mg chewable 6-11 by mouth. ity of tablet 21:43: [address] metoprolol 2019-0 Yes 25mg Take 25 mg U nivers tartrate 25 6-11 by mouth. ity of mg tablet 21:43: [address] multivitami 2019 Yes 1{tbl} Take 1 Un aria n tablet 6-11 tablet by ity of 21:43: mouth. [address] aspirin 81 2019- Yes 81mg Take 81 mg U nivers mg chewable 6-11 by mouth. ity of tablet 21:43: [address] metoprolol 2019-0 Yes 25mg Take 25 mg U nivers tartrate 25 6-11 by mouth. ity of mg tablet 21:43: [address] multivitami 2019 Yes 1{tbl} Take 1 Un raia n tablet 6-11 tablet by ity of 21:43: mouth. [address] aspirin 81 Yes 81mg Take 81 mg U nivers mg chewable 6-11 by mouth. ity of tablet 21:43: [address] metoprolol 2019- Yes 25mg Take 25 mg U nivers tartrate 25 6-11 by mouth. ity of mg tablet 21:43: [address] multivitami Yes 1{tbl} Take 1 Un aria n tablet 6-11 tablet by ity of 21:43: mouth. [address] aspirin 81 Yes 81mg Take 81 mg U nivers mg chewable 6-11 by mouth. ity of tablet 21:43: [address] metoprolol Yes 25mg Take 25 mg U nivers tartrate 25 6-11 by mouth. ity of mg tablet 21:43: [address] multivitami Yes 1{tbl} Take 1 Un aria n tablet 6-11 tablet by ity of 21:43: mouth. [address] aspirin 81 Yes 81mg Take 81 mg U nivers mg chewable 6-11 by mouth. ity of tablet 21:43: [address] metoprolol 2019- Yes 25mg Take 25 mg U nivers tartrate 25 6-11 by mouth. ity of mg tablet 21:43: [address] multivitami 2019 Yes 1{tbl} Take 1 Un aria n tablet 6-11 tablet by ity of 21:43: mouth. [address] aspirin 81 2018-0 Yes 81mg Take 81 mg U nivers mg chewable 6-11 by mouth. ity of tablet 21:43: [address] metoprolol 2019- Yes 25mg Take 25 mg U nivers tartrate 25 6-11 by mouth. ity of mg tablet 21:43: [address] multivitami 2019 Yes 1{tbl} Take 1 Un aria n tablet 6-11 tablet by ity of 21:43: mouth. [address] aspirin 81 0 Yes 81mg Take 81 mg U nivers mg chewable 6-11 by mouth. ity of tablet 21:43: [address] aspirin 81 Yes 81mg Take 81 mg U nivers mg chewable 6-11 by mouth. ity of tablet 21:43: [address] metoprolol 2019 Yes 25mg Take 25 mg U nivers tartrate 25 6-11 by mouth. ity of mg tablet 21:43: [address] multivitami Yes 1{tbl} Take 1 Un aria n tablet 6-11 tablet by ity of 21:43: mouth. [address] metoprolol 2019 Yes 25mg Take 25 mg U nivers tartrate 25 6-11 by mouth. ity of mg tablet 21:43: [address] aspirin 81 Yes 81mg Take 81 mg U nivers mg chewable 6-11 by mouth. ity of tablet 21:43: [address] metoprolol Yes 25mg Take 25 mg U nivers tartrate 25 6-11 by mouth. ity of mg tablet 21:43: [address] multivitami Yes 1{tbl} Take 1 Un aria n tablet 6-11 tablet by ity of 21:43: mouth. [address] multivitami Yes 1{tbl} Take 1 Un aria n tablet 6-11 tablet by ity of 21:43: mouth. [address] aspirin 81 0 Yes 81mg Take 81 mg U nivers mg chewable 6-11 by mouth. ity of tablet 21:43: [address] metoprolol 2019- Yes 25mg Take 25 mg U nivers tartrate 25 6-11 by mouth. ity of mg tablet 21:43: [address] multivitami Yes 1{tbl} Take 1 Un aria n tablet 6-11 tablet by ity of 21:43: mouth. [address] aspirin 81 2018- Yes 81mg Take 81 mg U nivers mg chewable 6-11 by mouth. ity of tablet 21:43: [address] metoprolol 2019- Yes 25mg Take 25 mg U nivers tartrate 25 6-11 by mouth. ity of mg tablet 21:43: [address] multivitami Yes 1{tbl} Take 1 Un aria n tablet 6-11 tablet by ity of 21:43: mouth. [address] aspirin 81 Yes 81mg Take 81 mg U nivers mg chewable 6-11 by mouth. ity of tablet 21:43: [address] metoprolol 2019 Yes 25mg Take 25 mg U nivers tartrate 25 6-11 by mouth. ity of mg tablet 21:43: [address] multivitami Yes 1{tbl} Take 1 Un aria n tablet 6-11 tablet by ity of 21:43: mouth. [address] aspirin 81 Yes 81mg Take 81 mg U nivers mg chewable 6-11 by mouth. ity of tablet 21:43: [address] metoprolol 2019 Yes 25mg Take 25 mg U nivers tartrate 25 6-11 by mouth. ity of mg tablet 21:43: [address] multivitami Yes 1{tbl} Take 1 Un aria n tablet 6-11 tablet by ity of 21:43: mouth. [address] aspirin 81 0 Yes 81mg Take 81 mg U nivers mg chewable 6-11 by mouth. ity of tablet 21:43: [address] metoprolol 2019 Yes 25mg Take 25 mg U nivers tartrate 25 6-11 by mouth. ity of mg tablet 21:43: [address] multivitami Yes 1{tbl} Take 1 Un aria n tablet 6-11 tablet by ity of 21:43: mouth. [address] aspirin 81 2019-0 Yes 81mg Take 81 mg U nivers mg chewable 6-11 by mouth. ity of tablet 21:43: [address] metoprolol 2019 Yes 25mg Take 25 mg U nivers tartrate 25 6-11 by mouth. ity of mg tablet 21:43: [address] multivitami Yes 1{tbl} Take 1 Un aria n tablet 6-11 tablet by ity of 21:43: mouth. [address] aspirin 81 2019-0 Yes 81mg Take 81 mg U nivers mg chewable 6-11 by mouth. ity of tablet 21:43: [address] metoprolol 2019-0 Yes 25mg Take 25 mg U nivers tartrate 25 6-11 by mouth. ity of mg tablet 21:43: [address] multivitami 2019 Yes 1{tbl} Take 1 Un aria n tablet 6-11 tablet by ity of 21:43: mouth. [address] aspirin 81 Yes 81mg Take 81 mg U nivers mg chewable 6-11 by mouth. ity of tablet 21:43: [address] aspirin 81 Yes 81mg Take 81 mg U nivers mg chewable 6-11 by mouth. ity of tablet 21:43: [address] metoprolol 2019 Yes 25mg Take 25 mg U nivers tartrate 25 6-11 by mouth. ity of mg tablet 21:43: [address] multivitami Yes 1{tbl} Take 1 Un aria n tablet 6-11 tablet by ity of 21:43: mouth. [address] metoprolol 2019- Yes 25mg Take 25 mg U nivers tartrate 25 6-11 by mouth. ity of mg tablet 21:43: [address] aspirin 81 Yes 81mg Take 81 mg U nivers mg chewable 6-11 by mouth. ity of tablet 21:43: [address] metoprolol 2019- Yes 25mg Take 25 mg U nivers tartrate 25 6-11 by mouth. ity of mg tablet 21:43: [address] multivitami 2019 Yes 1{tbl} Take 1 Un aria n tablet 6-11 tablet by ity of 21:43: mouth. [address] multivitami 2019 Yes 1{tbl} Take 1 Un aria n tablet 6-11 tablet by ity of 21:43: mouth. [address] aspirin 81 2019- Yes 81mg Take 81 mg U nivers mg chewable 6-11 by mouth. ity of tablet 21:43: [address] metoprolol 2019- Yes 25mg Take 25 mg U nivers tartrate 25 6-11 by mouth. ity of mg tablet 21:43: [address] multivitami Yes 1{tbl} Take 1 Un aria n tablet 6-11 tablet by ity of 21:43: mouth. [address] aspirin 81 0 Yes 81mg Take 81 mg U nivers mg chewable 6-11 by mouth. ity of tablet 21:43: [address] metoprolol 2019 Yes 25mg Take 25 mg U nivers tartrate 25 6-11 by mouth. ity of mg tablet 21:43: [address] multivitami Yes 1{tbl} Take 1 Un aria n tablet 6-11 tablet by ity of 21:43: mouth. [address] aspirin 81 Yes 81mg Take 81 mg U nivers mg chewable 6-11 by mouth. ity of tablet 21:43: [address] metoprolol Yes 25mg Take 25 mg U nivers tartrate 25 6-11 by mouth. ity of mg tablet 21:43: [address] multivitami Yes 1{tbl} Take 1 Un aria n tablet 6-11 tablet by ity of 21:43: mouth. [address] aspirin 81 0 Yes 81mg Take 81 mg U nivers mg chewable 6-11 by mouth. ity of tablet 21:43: [address] metoprolol Yes 25mg Take 25 mg U nivers tartrate 25 6-11 by mouth. ity of mg tablet 21:43: [address] multivitami Yes 1{tbl} Take 1 Un aria n tablet 6-11 tablet by ity of 21:43: mouth. [address] aspirin 81 20190 Yes 81mg Take 81 mg U nivers mg chewable 6-11 by mouth. ity of tablet 21:43: [address] metoprolol 2019-0 Yes 25mg Take 25 mg U nivers tartrate 25 6-11 by mouth. ity of mg tablet 21:43: [address] multivitami Yes 1{tbl} Take 1 Un aria n tablet 6-11 tablet by ity of 21:43: mouth. [address] aspirin 81 2019-0 Yes 81mg Take 81 mg U nivers mg chewable 6-11 by mouth. ity of tablet 21:43: [address] metoprolol 2019-0 Yes 25mg Take 25 mg U nivers tartrate 25 6-11 by mouth. ity of mg tablet 21:43: [address] multivitami 2019- Yes 1{tbl} Take 1 Un aria n tablet 6-11 tablet by ity of 21:43: mouth. [address] aspirin 81 2019-0 Yes 81mg Take 81 mg U nivers mg chewable 6-11 by mouth. ity of tablet 21:43: [address] metoprolol 2019- Yes 25mg Take 25 mg U nivers tartrate 25 6-11 by mouth. ity of mg tablet 21:43: [address] multivitami 2019 Yes 1{tbl} Take 1 Un aria n tablet 6-11 tablet by ity of 21:43: mouth. [address] aspirin 81 Yes 81mg Take 81 mg U nivers mg chewable 6-11 by mouth. ity of tablet 21:43: [address] aspirin 81 Yes 81mg Take 81 mg U nivers mg chewable 6-11 by mouth. ity of tablet 21:43: [address] metoprolol 2019-0 Yes 25mg Take 25 mg U nivers tartrate 25 6-11 by mouth. ity of mg tablet 21:43: [address] multivitami 2019 Yes 1{tbl} Take 1 Un [facility] n tablet 6-11 tablet by ity of 21:43: mouth. [address] aspirin 81 2018-0 Yes 81mg Take 81 mg U nivers mg chewable 6-11 by mouth. ity of tablet 21:43: [address] metoprolol 2019-0 Yes 25mg Take 25 mg U nivers tartrate 25 6-11 by mouth. ity of mg tablet 21:43: [address] multivitami 2019-0 Yes 1{tbl} Take 1 Un aria n tablet 6-11 tablet by ity of 21:43: mouth. [address] metoprolol 2019-0 Yes 25mg Take 25 mg U nivers tartrate 25 6-11 by mouth. ity of mg tablet 21:43: [address] aspirin 81 2019-0 Yes 81mg Take 81 mg U nivers mg chewable 6-11 by mouth. ity of tablet 21:43: [address] multivitami 2019 Yes 1{tbl} Take 1 Un aria n tablet 6-11 tablet by ity of 21:43: mouth. [address] metoprolol 2019-0 Yes 25mg Take 25 mg U nivers tartrate 25 6-11 by mouth. ity of mg tablet 21:43: [address] multivitami 2019 Yes 1{tbl} Take 1 Un aria n tablet 6-11 tablet by ity of 21:43: mouth. [address] aspirin 81 Yes 81mg Take 81 mg U nivers mg chewable 6-11 by mouth. ity of tablet 21:43: [address] metoprolol 2019 Yes 25mg Take 25 mg U nivers tartrate 25 6-11 by mouth. ity of mg tablet 21:43: [address] multivitami Yes 1{tbl} Take 1 Un aria n tablet 6-11 tablet by ity of 21:43: mouth. [address] aspirin 81 Yes 81mg Take 81 mg U nivers mg chewable 6-11 by mouth. ity of tablet 21:43: [address] metoprolol 2019-0 Yes 25mg Take 25 mg U nivers tartrate 25 6-11 by mouth. ity of mg tablet 21:43: [address] multivitami 2019 Yes 1{tbl} Take 1 Un [facility] n tablet 6-11 tablet by ity of 21:43: mouth. [address] aspirin 81 2019-0 Yes 81mg Take 81 mg U nivers mg chewable 6-11 by mouth. ity of tablet 21:43: [address] metoprolol 2019-0 Yes 25mg Take 25 mg U nivers tartrate 25 6-11 by mouth. ity of mg tablet 21:43: [address] multivitami 2019 Yes 1{tbl} Take 1 Un [facility] tablet 6-11 tablet by ity of 21:43: mouth. [address] aspirin 81 2019-0 Yes 81mg Take 81 mg U nivers mg chewable 6-11 by mouth. ity of tablet 21:43: [address] metoprolol Yes 25mg Take 25 mg U nivers tartrate 25 6-11 by mouth. ity of mg tablet 21:43: [address] multivitami Yes 1{tbl} Take 1 Un [facility] n tablet 6-11 tablet by ity of 21:43: mouth. [address] aspirin 81 Yes 81mg Take 81 mg U nivers mg chewable 6-11 by mouth. ity of tablet 21:43: [address] metoprolol Yes 25mg Take 25 mg U nivers tartrate 25 6-11 by mouth. ity of mg tablet 21:43: [address] multivitami Yes 1{tbl} Take 1 Un aria n tablet 6-11 tablet by ity of 21:43: mouth. [address] cloBAZam Yes 1{tbl} Take 1 Unive rs (ONFI) 10 6-11 tablet by ity o f mg Tab 00:00: mouth 2 (two) Medical times Branch daily. cloBAZam Yes 1{tbl} Take 1 [facility] rs (ONFI) 10 6-11 tablet by ity o f mg Tab 00:00: mouth 2 () Medical times Branch daily. cloBAZam Yes 1{tbl} Take 1 [facility] rs (ONFI) 10 6-11 tablet by ity o f mg Tab 00:00: mouth 2 (two) Medical times Branch daily. cloBAZam Yes 1{tbl} Take 1 [facility] rs (ONFI) 10 6-11 tablet by ity o f mg Tab 00:00: mouth 2 (two) Medical times Branch daily. cloBAZam Yes 1{tbl} Take 1 [facility] rs (ONFI) 10 6-11 tablet by ity o f mg Tab 00:00: mouth 2 (two) Medical times Branch daily. cloBAZam Yes 1{tbl} Take 1 [facility] rs (ONFI) 10 6-11 tablet by ity o f mg Tab 00:00: mouth 2 (two) Medical times Branch daily. cloBAZam Yes 1{tbl} Take 1 [facility] rs (ONFI) 10 6-11 tablet by ity o f mg Tab 00:00: mouth 2 [place] 00 (two) Medical times Branch daily. cloBAZam Yes 1{tbl} Take 1 [facility] rs (ONFI) 10 6-11 tablet by ity o f mg Tab 00:00: mouth 2 00 (two) Medical times Branch daily. cloBAZam Yes 1{tbl} Take 1 [facility] rs (ONFI) 10 6-11 tablet by ity o f mg Tab 00:00: mouth 2 00 (two) Medical times Branch daily. cloBAZam Yes 1{tbl} Take 1 [facility] rs (ONFI) 10 6-11 tablet by ity o f mg Tab 00:00: mouth 2 00 (two) Medical times Branch daily. cloBAZam Yes 1{tbl} Take 1 [facility] rs (ONFI) 10 6-11 tablet by ity o f mg Tab 00:00: mouth 2 00 (two) Medical times Branch daily. cloBAZam 2020- No 1{tbl} Take 1 Univ ers (ONFI) 10 6-11 03-02 tablet by ity of mg Tab 00:00: 00:00 mouth 2 [place] 00 :00 (two) Medical times Branch daily. cloBAZam 2020- No 1{tbl} Take 1 Univ ers (ONFI) 10 6-11 03-02 tablet by ity of mg Tab 00:00: 00:00 mouth 2 [place] 00 :00 (two) Medical times Branch daily. dexamethaso Yes See [facility] a ne 2 mg 5-07 Instructio l oral tablet 14:26: ns, 2 tab H ermann 00 PO BID x 2 days; 1 tab PO BID x 2 days; 1 tab QD x 3 days, # 30 tab, 0 Refill(s), Pharmacy: [facility] [id number] Famotidine Yes 20 mg = 1 Me moria 20 MG Oral 5-07 tab, PO, l Tablet 14:26: BID, # 60 Scottie n [Pepcid] 00 tab, 0 Refill(s), Pharmacy: [facility] [id number] Speech Yes See [facility] Therapy 08-28 Instructio l 19:50: ns, MISC, [place] 00 ONCALL, Evaluate and Treat 3 times per week for 4 weeks, # 12 bag, 0 Refill(s) Ritalin No Notes: [facility] 5- (Same l 15:15: as:Ritalin Lisinopril No Notes: [facility] - (Same as: l 14:00: Prinivil, Duy 00 Zestril) 24 HR No Notes: [facility] Divalproex 08-28 (Same as: l Sodium 500 14:00: Depakote Her [place] MG Extended 00 ER) Once Release daily Tablet dosing; indicated for migraines. Divalproe x sodium extended-r elease tab. Do not chew or crush. "Do Not Crush" heparin No Notes: [facility] sodium, 08-28 porcine l porcine 13:00: heparin Duy 2500 UNT/ML 00 Injectable Solution Saline No Notes: [facility] Flush 0.9% 08-28 (Same as: l 02:00: BD [place] 00 Posiflush) divalproex No Notes: [facility] sodium 500 08-28 (Same as: l mg oral 02:00: Depakote [place] n tablet, 00 ER) Once extended daily release(Dep dosing; akote ER) indicated for migraines. Divalproe x sodium extended-r elease tab. Do not chew or crush. "Do Not Crush" Cefazolin No Notes: [facility] a - (Same as l 01:00: Ancef) [place] 00 Onfi No Notes: [facility] 5-03 (Same as: l 00:00: Onfi) [place] 00 reserved for Neurology use only Dexamethaso No Notes: Dannie pat ne 08-27 Give with l 23:00: food. [place] 00 (Same As: Decadron) 24 HR No Notes: [facility] Metoprolol 08-27 (Same as: l Tartrate 25 22:00: Toprol XL) [place] MG Extended 00 Do Not Release Crush Tablet [Toprol] Famotidine No Notes: Memor ia 20 MG Oral 08-27 (Same as: l Tablet 22:00: Pepcid) sennosides, No Notes: Dannie pat [facility] 08-27 (Same as: l 22:00: Senokot) Docusate No Notes: Memoria 08-27 (Same as: l 22:00: Colace) (Do Not Crush) Onfi No 5 mg, Memoria 08-27 Route: PO, l 22:00: Drug form: Duy 00 TAB, BID, Dosing Weight 73.182, kg, Start date: 08/27/18 17:00:00 CDT, Duration: 30 day, Stop date: 09/26/18 9:00:00 CDT Acetaminoph Yes 1 tab, PO, Memoria en 325 MG / 08-27 Q6H, PRN l Hydrocodone 21:54: for pain, H ermann Bitartrate 00 X 14 day, 10 MG Oral # 60 tab, Tablet 0 [[place] Refill(s) 10/325] Docusate Yes 50 mg = 1 Dannie pat Sodium 50 02 cap, PO, l MG Oral 21:54: BID, # 20 Brianna nn Capsule 00 cap, 0 [Colace] Refill(s) Ondansetron Yes 4 mg = 1 Me moria 4 MG Oral 08-27 tab, PO, l Tablet 21:54: BID, PRN [place] [Zofran] 00 Nausea & Vomiting, # 30 tab, 0 Refill(s) tramadol Yes 50 mg = 1 Dannie pat hydrochlori -02 tab, PO, l de 50 MG 21:54: Q6H, PRN Brianna nn Oral Tablet 00 Pain, X 10 day, # 40 tab, 0 Refill(s) Promethazin Yes 12.5 mg = M emoria e 02 1 tab, PO, l Hydrochlori 21:54: Q6H, PRN He rmann de 12.5 MG 00 Nausea & Oral Tablet Vomiting, [Phenergan] # 28 tab, 0 Refill(s) acetaminoph No Route: IV, Memoria en (ANES) 08-27 Drug form: l 20:36: INJ, ONCE, Stop date: 08/27/18 15:36:00 CDT Saline No Notes: Memoria Flush 0.9% -02 (Same as: l 20:23: BD Posiflush) Ondansetron No Notes: Dannie pat 5-02 (Same as: l 20:23: Zofran) MEDICATION WASTE Product Size: 4 mg Product Wasted: ___ mg Labetalol No 10 mg, 2 Dannie pat 5-02 mL, Route: l 20:23: IVP, Drug form: INJ, Q15Min, Dosing Weight 73.182, kg, PRN Hypertensi on, Start date: 08/27/18 15:23:00 CDT, Duration: 3 doses or times, Stop date: Limited # of times phenol No Notes: Memoria 5-02 Chlorasept l 20:23: ic [place] (Same as: Chlorasept ic, Sore Throat [place]) WASTE: F/P - Black; E - Municipal Trash Bin Acetaminoph No Notes: Do M emoria en 325 MG / 5-02 not exceed l Hydrocodone 20:23: 4gm/day of Bitartrate acetaminop 10 MG Oral hen. Tablet (Same as: [[place] 10/325] 325/10) Hydralazine No Notes: Dannie pat 5-02 (Same as: l 20:23: Apresoline ) Push over 5 minutes Dilaudid No Notes: Memoria 5-02 Same as l 20:23: Dilaudid Benadryl No Notes: Memoria 5-02 (Same as: l 20:23: Benadryl) Duy Melatonin 3 No Notes: Dannie pat MG Extended -02 (Same as: l Release 20:23: Melatonin) Herm shama Tablet 00 Tylenol No Notes: Do Memor ia 5-02 not exceed l 20:23: 4 gm/day. Duy 00 (Same as: Tylenol) Robaxin No Notes: Memoria 5-02 (Same l 20:23: as:Robaxin ) Bisacodyl No Notes: Memori a 5-02 (Same As: l 20:23: Dulcolax, Bisco-Lax) Reglan No Notes: Memoria 5-02 (Same as: l 20:23: Reglan) Phenergan No Notes: Do Mem oria 5- not give l 20:23: IV push. (Same as: Phenergan) Sodium No 1,000 mL, Memori a Chloride 08-27 Rate: 100 l 0.9% IV 20:23: ml/hr, Duy 1,000 mL 00 Infuse over: 10 hr, Route: IV, Dosing Weight 73.182 kg, Total Volume: 1,000, Start date: 08/27/18 15:23:00 CDT, Duration: 30 day, Stop date: 09/26/18 15:22:00 CDT, 1.84, m2 Flomax No Notes: Memoria 5-02 (Same As: l 20:22: Flomax) "Do Not Crush" sugammadex No Notes: Memor ia - (Same as: l 19:49: [place]) ondansetron No Route: IV, Memoria (ANES) 5- Drug form: l 19:45: INJ, ONCE, Stop date: 08/27/18 14:45:00 CDT phenylephri No Route: IV, Memoria ne (ANES) 5- Drug form: l 100 18:36: INJ, Start [place] microgram date: 08/27/18 13:36:00 CDT, Stop date: 08/27/18 14:36:00 CDT fentaNYL No Route: IV, Mem oria (ANES) 5- Drug form: l 18:18: INJ, ONCE, Stop date: 08/27/18 13:18:00 CDT rocuronium No Route: IV, M emoria (ANES) 5- Drug form: l 18:18: INJ, ONCE, Stop date: 08/27/18 13:18:00 CDT propofol No Route: IV, Mem oria (ANES) 08-27 Drug form: l 18:18: INJ, ONCE, Stop date: 08/27/18 13:18:00 CDT lidocaine No Route: IV, Me moria (ANES) 08-27 Drug form: l 18:18: INJ, ONCE, Stop date: 08/27/18 13:18:00 CDT Ondansetron No Notes: Dannie pat - (Same as: l 18:01: Zofran) MEDICATION WASTE Product Size: 4 mg Product Wasted: ___ mg Fentanyl No Notes: Memoria 5- (Same as: l 18:01: Sublimaze) Preservat tomy free. Flumazenil No Notes: Memor ia - (Same as: l 18:01: Romazicon) Naloxone No Notes: Memoria 5-02 Same as l 18:01: Narcan Oxycodone No Notes: Memori a - (Same as: l 18:01: Roxicodone ) Hydralazine No Notes: Dannie pat 5-02 (Same as: l 18:01: Apresoline ) Push over 5 minutes Labetalol No 10 mg, 2 Dannie pat 5-02 mL, Route: l 18:01: IVP, Drug form: INJ, Q5Min, Dosing Weight 73.182, kg, PRN Elevated BP, Start date: 08/27/18 13:01:00 CDT, Duration: 5 doses or times, Stop date: 08/28/18 0:00:00 CDT ANES No 0.625 mg, Memoria Enalaprilat 08-27 Route: l 18:01: IVP, 00 Q5Min, Dosing Weight 73.182, kg, PRN Elevated BP, Start date: 08/27/18 13:01:00 CDT, Duration: 4 doses or times, Stop date: Limited # of times dexamethaso No Route: IV, Memoria ne (ANES) 08-27 Drug form: l 17:58: INJ, ONCE, Stop date: 08/27/18 12:58:00 CDT ceFAZolin No Route: IV, Me moria (ANES) 08-27 Drug form: l 17:58: INJ, ONCE, Stop date: 08/27/18 12:58:00 CDT vasopressin No Route: IV, Memoria (ANES) 08-27 Drug form: l 17:53: INJ, ONCE, Stop date: 08/27/18 12:53:00 CDT phenylephri No Route: IV, Memoria ne (ANES) 08-27 Drug form: l 17:53: INJ, ONCE, Stop date: 08/27/18 12:53:00 CDT levETIRAcet No Route: IV, Memoria am (ANES) 08-27 Drug form: l 100 mg 16:53: INJ, Start date: 08/27/18 11:53:00 CDT, Stop date: 08/27/18 12:53:00 CDT mannitol No Route: IV, Mem oria (ANES) 200 08-27 Drug form: l mg 16:51: INJ, Start Duy 00 date: 08/27/18 11:51:00 CDT, Stop date: 08/27/18 12:51:00 CDT propofol No Route: IV, Mem oria (ANES) 10 08-27 Drug form: l mg 16:48: INJ, Start date: 08/27/18 11:48:00 CDT, Stop date: 08/27/18 12:48:00 CDT remifentani No Route: IV, Memoria l (ANES) 1 08-27 Drug form: l mg 16:48: INJ, Start [place] 00 date: 08/27/18 11:48:00 CDT, Stop date: 08/27/18 12:48:00 CDT Sodium No Route: IV, Memor ia Chloride 08-27 Total l 0.9% IV 16:47: Volume: [place] (ANES) 500 00 500, Start mL date: 08/27/18 11:47:00 CDT, Stop date: 08/27/18 12:47:00 CDT Lactated No Route: IV, Mem oria [place] 08-27 Total l Injection 16:23: Volume: Brianna nn IV (ANES) 00 1,000, 1000 mL Start date: 08/27/18 11:23:00 CDT, Stop date: 08/27/18 12:23:00 CDT Emend No Notes: Memoria 08-27 Same as: l 14:46: Emend Duy 00 restricted to the Hematology /Oncology service for high and moderate emetogenic regimen according to ASCO Guidelines Passthrou gh Only for Chemothera py-Induced nausea & vomiting ceFAZolin + No Notes: Dannie pat sterile 08-27 (Same As: l water 20 mL 10:00: Ancef, Herm shama 00 Kefzol) MEDICATION WASTE Product Size: 1000 mg Product Wasted: ___ mg metoprolol Yes 25 mg, PO, M emoria 25 mg oral 4-29 BID, 0 l tablet, 13:40: Refill(s) Brianna nn extended 00 release clobazam 10 Yes 5 mg, PO, M emoria MG Oral 4-29 BID, 0 l Tablet 13:39: Refill(s) Scottie jacob [Onfi] 00 dexamethaso Yes See Memori a ne 1 mg 3-28 Instructio l oral tablet 21:59: ns, 2 tab H ermann 00 PO BID x 2 weeks, then 1 tab PO BID x 1 week, then 1 tab PO qd x 1 week, then stop, # 77 tab, 0 Refill(s), Pharmacy: [facility] [id number] Famotidine Yes 20 mg = 1 Me moria 20 MG Oral 3-28 tab, PO, l Tablet 21:59: BID, # 60 Scottie n [Pepcid] 00 tab, 0 Refill(s), Pharmacy: [facility] 256 Methylpheni Yes 20 mg = 1 M emoria date 3-26 tab, PO, l Hydrochlori 21:31: BID, 0 Jodi shama de 20 MG 00 Refill(s) Oral Tablet [Ritalin] 24 HR Yes 500 mg = 1 Memori a Divalproex 3-26 tab, PO, l Sodium 500 21:31: Daily, 0 Her [place] MG Extended 00 Refill(s) Release Tablet lisinopril Yes 20 mg = 1 Me moria 20 mg oral 3-26 tab, PO, l tablet 21:31: Daily, 0 Duy 00 Refill(s) methylpheni 2017-04 Yes 20mg Take 1 Univ ers date HCl 20 1-02 tablet by ity of mg tablet 00:00: mouth 3 (three) Medical times Branch daily. methylpheni 2017-04 Yes 20mg Take 1 Univ ers date HCl 20 1-02 tablet by ity of mg tablet 00:00: mouth 3 (three) Medical times Branch daily. methylpheni 2017-04 Yes 20mg Take 1 Univ ers date HCl 20 1-02 tablet by ity of mg tablet 00:00: mouth 3 (three) Medical times Branch daily. methylpheni 2017-04 Yes 20mg Take 1 Univ ers date HCl 20 1-02 tablet by ity of mg tablet 00:00: mouth 3 (three) Medical times Branch daily. methylpheni 2017-04 Yes 20mg Take 1 Univ ers date HCl 20 1-02 tablet by ity of mg tablet 00:00: mouth 3 (three) Medical times Branch daily. methylpheni 2017-04 Yes 20mg Take 1 Univ ers date HCl 20 1-02 tablet by ity of mg tablet 00:00: mouth 3 (three) Medical times Branch daily. methylpheni 2017-04 Yes 20mg Take 1 Univ ers date HCl 20 1-02 tablet by ity of mg tablet 00:00: mouth 3 (three) Medical times Branch daily. methylpheni 2017-04 2020- No 20mg Take 1 Uni vers date HCl 20 1-02 -24 tablet by it y of mg tablet 00:00: [place] Medical times Branch daily. VALPROIC Yes Take by Unive rs ACID ORAL 7- mouth. ity of 21:51: [place] [id number] Medical Branch VALPROIC 2017- Yes Take by Unive rs ACID ORAL 7- mouth. ity of 21:51: [place] [address] Medical Branch VALPROIC Yes Take by Unive rs ACID ORAL 7-27 mouth. ity of 21:51: [address] VALPROIC Yes Take by Unive rs ACID ORAL 7-27 mouth. ity of 21:51: [address] VALPROIC Yes Take by Unive rs ACID ORAL 7-27 mouth. ity of 21:51: [address] VALPROIC Yes Take by Unive rs ACID ORAL 7-27 mouth. ity of 21:51: [address] VALPROIC Yes Take by Unive rs ACID ORAL 7-27 mouth. ity of 21:51: [address] VALPROIC Yes Take by Unive rs ACID ORAL 7-27 mouth. ity of 21:51: [address] VALPROIC Yes Take by Unive rs ACID ORAL 7-27 mouth. ity of 21:51: [address] VALPROIC Yes Take by Unive rs ACID ORAL 7-27 mouth. ity of 21:51: [address] VALPROIC Yes Take by Unive rs ACID ORAL 7-27 mouth. ity of 21:51: [address] lisinopril Yes Univers 20 mg 6-20 ity of tablet 00:00: [address] lisinopril Yes Univers 20 mg 6-20 ity of tablet 00:00: [address] lisinopril Yes Univers 20 mg 6-20 ity of tablet 00:00: [address] lisinopril Yes Univers 20 mg 6-20 ity of tablet 00:00: [address] lisinopril Yes Univers 20 mg 6-20 ity of tablet 00:00: [address] lisinopril Yes Univers 20 mg 6-20 ity of tablet 00:00: [address] lisinopril Yes Univers 20 mg 6-20 ity of tablet 00:00: [address] lisinopril Yes Univers 20 mg 6-20 ity of tablet 00:00: [address] lisinopril Yes Univers 20 mg 6-20 ity of tablet 00:00: [address] lisinopril 2018-0 Yes Univers 20 mg 6-20 ity of tablet 00:00: [place] 00 [facility] lisinopril 2018-0 Yes Univers 20 mg 6-20 ity of tablet 00:00: [place] [address] Medical Branch lisinopril 2018-0 Yes Univers 20 mg 6-20 ity of tablet 00:00: [place] [address] Medical Branch lisinopril 2018-0 Yes Univers 20 mg 6-20 ity of tablet 00:00: [place] [address] [facility] Branch lisinopril 2018-0 Yes Univers 20 mg 6-20 ity of tablet 00:00: [place] [address] [facility] Branch lisinopril 2018-0 Yes Univers 20 mg 6-20 ity of tablet 00:00: [place] [address] [facility] Branch lisinopril 2018-0 Yes Univers 20 mg 6-20 ity of tablet 00:00: [place] [address] [facility] Branch lisinopril 2018-0 Yes Univers 20 mg 6-20 ity of tablet 00:00: [place] [address] [facility] Branch lisinopril 2018-0 Yes Univers 20 mg 6-20 ity of tablet 00:00: [place] [address] [facility] Branch lisinopril 2018-0 Yes Univers 20 mg 6-20 ity of tablet 00:00: [place] [address] [facility] Branch lisinopril 2018-0 Yes Univers 20 mg 6-20 ity of tablet 00:00: [place] [address] [facility] Branch lisinopril 2018-0 Yes Univers 20 mg 6-20 ity of tablet 00:00: [place] [address] [facility] Branch lisinopril 2018-0 Yes Univers 20 mg 6-20 ity of tablet 00:00: [place] [address] [facility] Branch lisinopril 2018-0 Yes Univers 20 mg 6-20 ity of tablet 00:00: [place] [address] [facility] Branch lisinopril 2018-0 Yes Univers 20 mg 6-20 ity of tablet 00:00: [place] [address] [facility] Branch lisinopril 2018-0 Yes Univers 20 mg 6-20 ity of tablet 00:00: [place] [address] [facility] Branch lisinopril 2018-0 Yes Univers 20 mg 6-20 ity of tablet 00:00: [place] [address] [facility] Branch lisinopril 2018-0 Yes Univers 20 mg 6-20 ity of tablet 00:00: [place] [address] [facility] Branch lisinopril 2018-0 Yes Univers 20 mg 6-20 ity of tablet 00:00: [place] [address] [facility] Branch lisinopril 2018-0 Yes Univers 20 mg 6-20 ity of tablet 00:00: [place] [address] [facility] Branch lisinopril 2018-0 Yes Univers 20 mg 6-20 ity of tablet 00:00: [place] [address] [facility] Branch lisinopril 2018-0 Yes Univers 20 mg 6-20 ity of tablet 00:00: [place] [address] [facility] Branch lisinopril 2018-0 Yes Univers 20 mg 6-20 ity of tablet 00:00: [place] [address] [facility] Branch lisinopril 2018-0 Yes Univers 20 mg 6-20 ity of tablet 00:00: [place] [address] [facility] Branch lisinopril 2018-0 Yes Univers 20 mg 6-20 ity of tablet 00:00: [place] [address] [facility] Branch lisinopril 2018-0 Yes Univers 20 mg 6-20 ity of tablet 00:00: [place] [address] [facility] Branch lisinopril 2018-0 Yes Univers 20 mg 6-20 ity of tablet 00:00: [place] [address] [facility] Branch lisinopril 2018-0 Yes Univers 20 mg 6-20 ity of tablet 00:00: [place] [address] [facility] Branch lisinopril 2018-0 Yes Univers 20 mg 6-20 ity of tablet 00:00: [place] [address] [facility] Branch lisinopril 2018-0 Yes Univers 20 mg 6-20 ity of tablet 00:00: [place] [address] [facility] Branch lisinopril 2018-0 Yes Univers 20 mg 6-20 ity of tablet 00:00: [place] [address] [facility] Branch lisinopril 2018-0 Yes Univers 20 mg 6-20 ity of tablet 00:00: [place] [address] [facility] Branch lisinopril 2018-0 Yes Univers 20 mg 6-20 ity of tablet 00:00: [place] [address] [facility] Branch lisinopril 2018-0 Yes Univers 20 mg 6-20 ity of tablet 00:00: [place] [address] [facility] Branch lisinopril 2018-0 Yes Univers 20 mg 6-20 ity of tablet 00:00: [place] [address] [facility] Branch lisinopril 2018-0 Yes Univers 20 mg 6-20 ity of tablet 00:00: [place] [address] [facility] Branch lisinopril 2018-0 Yes Univers 20 mg 6-20 ity of tablet 00:00: [place] [address] [facility] Branch lisinopril 2018-0 Yes Univers 20 mg 6-20 ity of tablet 00:00: [place] [address] [facility] Branch lisinopril 2018-0 Yes Univers 20 mg 6-20 ity of tablet 00:00: [place] [address] [facility] Branch lisinopril 2018-0 Yes Univers 20 mg 6-20 ity of tablet 00:00: [place] [facility] lisinopril 2018-0 Yes Univers 20 mg 6-20 ity of tablet 00:00: [place] [facility] lisinopril 2018-0 Yes Univers 20 mg 6-20 ity of tablet 00:00: [place] [facility] Branch lisinopril 2018-0 Yes Univers 20 mg 6-20 ity of tablet 00:00: [place] [facility] Branch lisinopril 2018-0 Yes Univers 20 mg 6-20 ity of tablet 00:00: [place] [facility] lisinopril 2018-0 Yes Univers 20 mg 6-20 ity of tablet 00:00: [place] [facility] Branch lisinopril 2018-0 Yes Univers 20 mg 6-20 ity of tablet 00:00: [place] [facility] lisinopril 2018-0 Yes Univers 20 mg 6-20 ity of tablet 00:00: [place] [facility] lisinopril 2018-0 Yes Univers 20 mg 6-20 ity of tablet 00:00: [place] [facility] lisinopril 2018-0 Yes Univers 20 mg 6-20 ity of tablet 00:00: [place] [facility] ibuprofen 2016-0 Yes 400mg Take 1 Unive rs (MOTRIN) 9-15 tablet by ity of 400 mg 00:00: mouth 3 [place] tablet 00 (three) Medical times Branch daily with meals. cyclobenzap 2015-0 Yes 5mg Take 1 Univ ers rine 9-15 tablet by ity of (FLEXERIL) 00:00: [place] 5 mg tablet 00 (three) Medic al times Branch daily. ciprofloxac 2015-0 Yes 250mg Take 1 Uni vers in HCl 9-15 tablet by ity of (CIPRO) 250 00:00: mouth 2 [place] mg tablet 00 (two) Medical times Branch daily. ibuprofen 2016-0 Yes 400mg Take 1 Unive rs (MOTRIN) 9-15 tablet by ity of 400 mg 00:00: mouth 3 [place] tablet 00 (three) Medical times Branch daily with meals. cyclobenzap 2016-0 Yes 5mg Take 1 Univ ers rine 9-15 tablet by ity of (FLEXERIL) 00:00: [place] 5 mg tablet 00 (three) Medic al times Branch daily. ciprofloxac 2016-0 Yes 250mg Take 1 Uni vers in HCl 9-15 tablet by ity of (CIPRO) 250 00:00: mouth 2 [place] mg tablet 00 (two) Medical times Branch daily. ibuprofen 2016-0 Yes 400mg Take 1 Unive rs (MOTRIN) 9-15 tablet by ity of 400 mg 00:00: mouth 3 [place] tablet 00 (three) Medical times Branch daily with meals. cyclobenzap 2016-0 Yes 5mg Take 1 Univ ers rine 9-15 tablet by ity of (FLEXERIL) 00:00: [place] 5 mg tablet 00 (three) Medic al times Branch daily. ciprofloxac 2016-0 Yes 250mg Take 1 Uni vers in HCl 9-15 tablet by ity of (CIPRO) 250 00:00: mouth 2 [place] mg tablet 00 (two) Medical times Branch daily. ibuprofen 2016-0 Yes 400mg Take 1 Unive rs (MOTRIN) 9-15 tablet by ity of 400 mg 00:00: mouth 3 [place] tablet 00 (three) Medical times Branch daily with meals. cyclobenzap 2016-0 Yes 5mg Take 1 Univ ers rine 9-15 tablet by ity of (FLEXERIL) 00:00: [place] 5 mg tablet 00 (three) Medic al times Branch daily. ciprofloxac 2016-0 Yes 250mg Take 1 Uni vers in HCl 9-15 tablet by ity of (CIPRO) 250 00:00: mouth 2 [place] mg tablet 00 (two) Medical times Branch daily. ibuprofen 2016-0 Yes 400mg Take 1 Unive rs (MOTRIN) 9-15 tablet by ity of 400 mg 00:00: mouth 3 [place] tablet 00 (three) Medical times Branch daily with meals. cyclobenzap 2016-0 Yes 5mg Take 1 Univ ers rine 9-15 tablet by ity of (FLEXERIL) 00:00: [place] 5 mg tablet 00 (three) Medic al times Branch daily. ciprofloxac 2016-0 Yes 250mg Take 1 Uni vers in HCl 9-15 tablet by ity of (CIPRO) 250 00:00: mouth 2 [place] mg tablet 00 (two) Medical times Branch daily. ibuprofen 2016-0 Yes 400mg Take 1 Unive rs (MOTRIN) 9-15 tablet by ity of 400 mg 00:00: mouth 3 [place] tablet 00 (three) Medical times Branch daily with meals. cyclobenzap 2016-0 Yes 5mg Take 1 Univ ers rine 9-15 tablet by ity of (FLEXERIL) 00:00: mouth [place] 5 mg tablet 00 (three) Medic al times Branch daily. ciprofloxac 2016-0 Yes 250mg Take 1 Uni vers in HCl 9-15 tablet by ity of (CIPRO) 250 00:00: mouth 2 [place] mg tablet 00 (two) Medical times Branch daily. ibuprofen 2016-0 Yes 400mg Take 1 Unive rs (MOTRIN) 9-15 tablet by ity of 400 mg 00:00: mouth 3 [place] tablet 00 (three) Medical times Branch daily with meals. cyclobenzap 2016-0 Yes 5mg Take 1 Univ ers rine 9-15 tablet by ity of (FLEXERIL) 00:00: mouth [place] 5 mg tablet 00 (three) Medic al times Branch daily. ciprofloxac 2016-0 Yes 250mg Take 1 Uni vers in HCl 9-15 tablet by ity of (CIPRO) 250 00:00: mouth 2 [place] mg tablet 00 (two) Medical times Branch daily. ibuprofen 2016-0 Yes 400mg Take 1 Unive rs (MOTRIN) 9-15 tablet by ity of 400 mg 00:00: mouth 3 [place] tablet 00 (three) Medical times Branch daily with meals. cyclobenzap 2016-0 Yes 5mg Take 1 Univ ers rine 9-15 tablet by ity of (FLEXERIL) 00:00: mouth [place] 5 mg tablet 00 (three) Medic al times Branch daily. ibuprofen 2016-0 Yes 400mg Take 1 Unive rs (MOTRIN) 9-15 tablet by ity of 400 mg 00:00: mouth 3 [place] tablet 00 (three) Medical times Branch daily with meals. cyclobenzap 2016-0 Yes 5mg Take 1 Univ ers rine 9-15 tablet by ity of (FLEXERIL) 00:00: mouth 3 [place] 5 mg tablet 00 (three) Medic al times Branch daily. ciprofloxac 2016-0 Yes 250mg Take 1 Uni vers in HCl 9-15 tablet by ity of (CIPRO) 250 00:00: mouth 2 [place] mg tablet 00 (two) Medical times Branch daily. ciprofloxac 2016-0 Yes 250mg Take 1 Uni vers in HCl 9-15 tablet by ity of (CIPRO) 250 00:00: mouth 2 [place] mg tablet 00 (two) Medical times Branch daily. ibuprofen 2016-0 Yes 400mg Take 1 Unive rs (MOTRIN) 9-15 tablet by ity of 400 mg 00:00: mouth 3 [place] tablet 00 (three) Medical times Branch daily with meals. cyclobenzap 2016-0 Yes 5mg Take 1 Univ ers rine 9-15 tablet by ity of (FLEXERIL) 00:00: mouth [place] 5 mg tablet 00 (three) Medic al times Branch daily. ciprofloxac 2016-0 Yes 250mg Take 1 Uni vers in HCl 9-15 tablet by ity of (CIPRO) 250 00:00: mouth 2 [place] mg tablet 00 (two) Medical times Branch daily. ibuprofen 2016-0 Yes 400mg Take 1 Unive rs (MOTRIN) 9-15 tablet by ity of 400 mg 00:00: mouth 3 [place] tablet 00 (three) Medical times Branch daily with meals. cyclobenzap 2016-0 Yes 5mg Take 1 Univ ers rine 9-15 tablet by ity of (FLEXERIL) 00:00: mouth [place] 5 mg tablet 00 (three) Medic al times Branch daily. ciprofloxac 2016-0 Yes 250mg Take 1 Uni vers in HCl 9-15 tablet by ity of (CIPRO) 250 00:00: mouth 2 [place] mg tablet 00 (two) Medical times Branch daily. ibuprofen 2016-0 Yes 400mg Take 1 Unive rs (MOTRIN) 9-15 tablet by ity of 400 mg 00:00: mouth 3 [place] tablet 00 (three) Medical times Branch daily with meals. cyclobenzap 2016-0 Yes 5mg Take 1 Univ ers rine 9-15 tablet by ity of (FLEXERIL) 00:00: mouth [place] 5 mg tablet 00 (three) Medic al times Branch daily. ciprofloxac 2016-0 Yes 250mg Take 1 Uni vers in HCl 9-15 tablet by ity of (CIPRO) 250 00:00: mouth 2 [place] mg tablet 00 (two) Medical times Branch daily. ibuprofen 2016-0 Yes 400mg Take 1 Unive rs (MOTRIN) 9-15 tablet by ity of 400 mg 00:00: mouth 3 [place] tablet 00 (three) Medical times Branch daily with meals. cyclobenzap 2016-0 Yes 5mg Take 1 Univ ers rine 9-15 tablet by ity of (FLEXERIL) 00:00: mouth [place] 5 mg tablet 00 (three) Medic al times Branch daily. ciprofloxac 2016-0 Yes 250mg Take 1 Uni vers in HCl 9-15 tablet by ity of (CIPRO) 250 00:00: mouth 2 [place] mg tablet 00 (two) Medical times Branch daily. ibuprofen 2016-0 Yes 400mg Take 1 Unive rs (MOTRIN) 9-15 tablet by ity of 400 mg 00:00: mouth 3 [place] tablet 00 (three) Medical times Branch daily with meals. cyclobenzap 2016-0 Yes 5mg Take 1 Univ ers rine 9-15 tablet by ity of (FLEXERIL) 00:00: mouth 3 [place] 5 mg tablet 00 (three) Medic al times Branch daily. ciprofloxac 2016-0 Yes 250mg Take 1 Uni vers in HCl 9-15 tablet by ity of (CIPRO) 250 00:00: mouth 2 [place] mg tablet 00 (two) Medical times Branch daily. ibuprofen 2016-0 Yes 400mg Take 1 Unive rs (MOTRIN) 9-15 tablet by ity of 400 mg 00:00: mouth 3 [place] tablet 00 (three) Medical times Branch daily with meals. cyclobenzap 2016-0 Yes 5mg Take 1 Univ ers rine 9-15 tablet by ity of (FLEXERIL) 00:00: mouth 3 [place] 5 mg tablet 00 (three) Medic al times Branch daily. ciprofloxac 2016-0 Yes 250mg Take 1 Uni vers in HCl 9-15 tablet by ity of (CIPRO) 250 00:00: mouth 2 [place] mg tablet 00 (two) Medical times Branch daily. ibuprofen 2016-0 Yes 400mg Take 1 Unive rs (MOTRIN) 9-15 tablet by ity of 400 mg 00:00: mouth 3 [place] tablet 00 (three) Medical times Branch daily with meals. cyclobenzap 2016-0 Yes 5mg Take 1 Univ ers rine 9-15 tablet by ity of (FLEXERIL) 00:00: mouth 3 [place] 5 mg tablet 00 (three) Medic al times Branch daily. ciprofloxac 2016-0 Yes 250mg Take 1 Uni vers in HCl 9-15 tablet by ity of (CIPRO) 250 00:00: mouth 2 [place] mg tablet 00 (two) Medical times Branch daily. ibuprofen 2016-0 Yes 400mg Take 1 Unive rs (MOTRIN) 9-15 tablet by ity of 400 mg 00:00: mouth 3 [place] tablet 00 (three) Medical times Branch daily with meals. cyclobenzap 2016-0 Yes 5mg Take 1 Univ ers rine 9-15 tablet by ity of (FLEXERIL) 00:00: mouth 3 [place] 5 mg tablet 00 (three) Medic al times Branch daily. ciprofloxac 2016-0 Yes 250mg Take 1 Uni vers in HCl 9-15 tablet by ity of (CIPRO) 250 00:00: mouth 2 [place] mg tablet 00 (two) Medical times Branch daily. ibuprofen 2016-0 Yes 400mg Take 1 Unive rs (MOTRIN) 9-15 tablet by ity of 400 mg 00:00: mouth 3 [place] tablet 00 (three) Medical times Branch daily with meals. cyclobenzap 2016-0 Yes 5mg Take 1 Univ ers rine 9-15 tablet by ity of (FLEXERIL) 00:00: mouth 3 [place] 5 mg tablet 00 (three) Medic al times Branch daily. ciprofloxac 2016-0 Yes 250mg Take 1 Uni vers in HCl 9-15 tablet by ity of (CIPRO) 250 00:00: mouth 2 [place] mg tablet 00 (two) Medical times Branch daily. ibuprofen 2016-0 Yes 400mg Take 1 Unive rs (MOTRIN) 9-15 tablet by ity of 400 mg 00:00: mouth 3 [place] tablet 00 (three) Medical times Branch daily with meals. ibuprofen 2016-0 Yes 400mg Take 1 Unive rs (MOTRIN) 9-15 tablet by ity of 400 mg 00:00: mouth 3 [place] tablet 00 (three) Medical times Branch daily with meals. cyclobenzap 2016-0 Yes 5mg Take 1 Univ ers rine 9-15 tablet by [facility] ([place]IL[place] 00:[place] mouth 3 [place] (three) [facility] times [facility] daily. ciprofloxac 2016-0 Yes 250mg Take 1 [facility] HCl 9-15 tablet by [facility] of (CIPRO) 250 00:00: mouth 2 [place] tablet 00 (two) Medical times [facility] daily. cyclobenzap 2016-0 Yes 5mg Take 1 [facility] rine 9-15 tablet by [facility] ([facility]ERIL) 00:00: mouth 3 [place] (three) [facility] times [facility] daily. ibuprofen 2016-0 Yes 400mg Take 1 [facility] rs (MOTRIN) 9-15 tablet by [facility]y of 400 mg 00:00: mouth 3 [place] tablet 00 (three) Medical times [facility] daily with meals. cyclobenzap 2016-0 Yes 5mg Take 1 [facility] rine 9-15 tablet by [facility] (FLEXERIL) 00:00: mouth 3 [place] tablet 00 (three) [facility] al times [facility] daily. ciprofloxac 2016-0 Yes 250mg Take 1 [facility] in HCl 9-15 tablet by [facility]y of (CIPRO) 250 00:00: mouth 2 [place] tablet 00 (two) Medical times [facility] daily. ciprofloxac 2016-0 Yes 250mg Take 1 [facility] in HCl 9-15 tablet by [facility] of (CIPRO) 250 00:00: mouth 2 [place] tablet 00 (two) Medical times [facility] daily. ibuprofen 2016-0 Yes 400mg Take 1 [facility] rs (MOTRIN) 9-15 tablet by [facility] of 400 mg 00:00: mouth 3 [place] tablet 00 (three) Medical times [facility] daily with meals. cyclobenzap 2016-0 Yes 5mg Take 1 [facility] rine 9-15 tablet by [facility] (FLEXERIL) 00:00: mouth 3 [place] tablet 00 (three) [facility] times [facility] daily. ciprofloxac 2016-0 Yes 250mg Take 1 [facility] HCl 9-15 tablet by [facility] of (CIPRO) 250 00:00: mouth 2 [place] tablet 00 (two) Medical times [facility] daily. ibuprofen 2016-0 Yes 400mg Take 1 [facility] rs (MOTRIN) 9-15 tablet by [facility]y of 400 mg 00:00: mouth 3 [place] tablet 00 (three) Medical times [facility] daily with meals. cyclobenzap 2016-0 Yes 5mg Take 1 [facility] rine 9-15 tablet by [facility] (FLEXERIL) 00:00: mouth 3 [place] tablet 00 (three) Medic al times [facility] daily. ciprofloxac 2016-0 Yes 250mg Take 1 [facility] in HCl 9-15 tablet by [facility]y of (CIPRO) 250 00:00: mouth 2 [place] tablet 00 (two) Medical times [facility] daily. ibuprofen 2016-0 Yes 400mg Take 1 [facility] rs (MOTRIN) 9-15 tablet by [facility]y of 400 mg 00:00: mouth 3 [place] tablet 00 (three) Medical times Branch daily with meals. cyclobenzap 2016-0 Yes 5mg Take 1 [facility] rine 9-15 tablet by [facility] (FLEXERIL) 00:00: mouth 3 [place] tablet 00 (three) Medic al times [facility] daily. ciprofloxac 2016-0 Yes 250mg Take 1 [facility] in HCl 9-15 tablet by [facility]y of (CIPRO) 250 00:00: mouth 2 [place] tablet 00 (two) Medical times [facility] daily. ibuprofen 2016-0 Yes 400mg Take 1 [facility] rs (MOTRIN) 9-15 tablet by [facility]y of 400 mg 00:00: mouth 3 [place] tablet 00 (three) Medical times [facility] daily with meals. cyclobenzap 2016-0 Yes 5mg Take 1 [facility] rine 9-15 tablet by [facility] (FLEXERIL) 00:00: mouth 3 [place] tablet 00 (three) Medic al times [facility] daily. ciprofloxac 2016-0 Yes 250mg Take 1 [facility] in HCl 9-15 tablet by [facility]y of (CIPRO) 250 00:00: mouth 2 [place] tablet 00 (two) Medical times [facility] daily. ibuprofen 2016-0 Yes 400mg Take 1 [facility] rs (MOTRIN) 9-15 tablet by [facility] of 400 mg 00:00: mouth 3 [place] tablet 00 (three) Medical times [facility] daily with meals. cyclobenzap 2016-0 Yes 5mg Take 1 [facility] rine 9-15 tablet by [facility] of (FLEXERIL) 00:00: mouth 3 [place] tablet 00 (three) Medic al times [facility] daily. ciprofloxac 2016-0 Yes 250mg Take 1 [facility] in HCl 9-15 tablet by [facility] of (CIPRO) 250 00:00: mouth 2 [place] tablet 00 (two) Medical times [facility] daily. ibuprofen 2016-0 Yes 400mg Take 1 [facility] rs (MOTRIN) 9-15 tablet by [facility]y of 400 mg 00:00: mouth 3 [place] tablet 00 (three) Medical times [facility] daily with meals. cyclobenzap 2016-0 Yes 5mg Take 1 [facility] rine 9-15 tablet by [facility] of (FLEXERIL) 00:00: mouth 3 [place] tablet 00 (three) Medic al times [facility] daily. ciprofloxac 2016-0 Yes 250mg Take 1 [facility] in HCl 9-15 tablet by [facility]y of (CIPRO) 250 00:00: mouth 2 [place] tablet 00 (two) Medical times [facility] daily. ibuprofen 2016-0 Yes 400mg Take 1 [facility] rs (MOTRIN) 9-15 tablet by ity of 400 mg 00:00: mouth 3 [place] tablet 00 (three) Medical times Branch daily with meals. cyclobenzap 2016-0 Yes 5mg Take 1 [facility]ine 9-15 tablet by [facility] of (FLEXERIL) 00:00: mouth 3 [place] tablet 00 (three) Medic al times [facility] daily. ciprofloxac 2016-0 Yes 250mg Take 1 [facility] in HCl 9-15 tablet by [facility]y of (CIPRO) 250 00:00: mouth 2 [place] tablet 00 (two) Medical times [facility] daily. ibuprofen 2016-0 Yes 400mg Take 1 [facility] rs (MOTRIN) 9-15 tablet by ity of 400 mg 00:00: mouth 3 [place] tablet 00 (three) Medical times Branch daily with meals. ibuprofen 2016-0 Yes 400mg Take 1 [facility] rs (MOTRIN) 9-15 tablet by [facility]y of 400 mg 00:00: mouth 3 [place] tablet 00 (three) Medical times Branch daily with meals. cyclobenzap 2016-0 Yes 5mg Take 1 [facility]ine 9-15 tablet by [facility] of (FLEXERIL) 00:00: mouth 3 [place] tablet 00 (three) Medic al times [facility] daily. cyclobenzap 2016-0 Yes 5mg Take 1 [facility]ine 9-15 tablet by [facility] of (FLEXERIL) 00:00: mouth 3 [place] tablet 00 (three) Medic al times [facility] daily. ciprofloxac 2016-0 Yes 250mg Take 1 [facility] in HCl 9-15 tablet by [facility]y of (CIPRO) 250 00:00: mouth 2 [place] tablet 00 (two) Medical times [facility] daily. ciprofloxac 2016-0 Yes 250mg Take 1 [facility] in HCl 9-15 tablet by [facility]y of (CIPRO) 250 00:00: mouth 2 [place] mg tablet 00 (two) Medical times [facility] daily. ibuprofen 2016-0 Yes 400mg Take 1 [facility] rs (MOTRIN) 9-15 tablet by [facility]y of 400 mg 00:00: mouth 3 [place] tablet 00 (three) Medical times Branch daily with meals. cyclobenzap 2016-0 Yes 5mg Take 1 [facility]ine 9-15 tablet by [facility] of (FLEXERIL) 00:00: mouth 3 [place] tablet 00 (three) Medic al times [facility] daily. ciprofloxac 2016-0 Yes 250mg Take 1 [facility] in HCl 9-15 tablet by [facility]y of (CIPRO) 250 00:00: mouth 2 [place] tablet 00 (two) Medical times [facility] daily. ibuprofen 2016-0 Yes 400mg Take 1 [facility] rs (MOTRIN) 9-15 tablet by ity of 400 mg 00:00: mouth 3 [place] tablet 00 (three) Medical times Branch daily with meals. cyclobenzap 2016-0 Yes 5mg Take 1 [facility]ine 9-15 tablet by [facility] of (FLEXERIL) 00:00: mouth 3 [place] tablet 00 (three) Medic al times [facility] daily. ciprofloxac 2016-0 Yes 250mg Take 1 [facility] in HCl 9-15 tablet by [facility]y of (CIPRO) 250 00:00: mouth 2 [place] tablet 00 (two) Medical times [facility] daily. ibuprofen 2016-0 Yes 400mg Take 1 [facility] rs (MOTRIN) 9-15 tablet by [facility]y of 400 mg 00:00: mouth 3 [place] tablet 00 (three) Medical times Branch daily with meals. cyclobenzap 2016-0 Yes 5mg Take 1 [facility]ine 9-15 tablet by [facility] of (FLEXERIL) 00:00: mouth 3 [place] tablet 00 (three) Medic al times [facility] daily. ciprofloxac 2016-0 Yes 250mg Take 1 [facility] in HCl 9-15 tablet by [facility]y of (CIPRO) 250 00:00: mouth 2 [place] tablet 00 (two) Medical times [facility] daily. ibuprofen 2016-0 Yes 400mg Take 1 [facility] rs (MOTRIN) 9-15 tablet by [facility]y of 400 mg 00:00: mouth 3 [place] tablet 00 (three) Medical times Branch daily with meals. cyclobenzap 2016-0 Yes 5mg Take 1 [facility] 9-15 tablet by [facility] of (FLEXERIL) 00:00: mouth 3 [place] tablet 00 (three) Medic al times [facility] daily. ciprofloxac 2016-0 Yes 250mg Take 1 [facility] in HCl 9-15 tablet by [facility]y of (CIPRO) 250 00:00: mouth 2 [place] tablet 00 (two) Medical times [facility] daily. ibuprofen 2016-0 Yes 400mg Take 1 [facility] rs (MOTRIN) 9-15 tablet by [facility]y of 400 mg 00:00: mouth 3 [place] tablet 00 (three) Medical times Branch daily with meals. cyclobenzap 2016-0 Yes 5mg Take 1 [facility] 9-15 tablet by [facility] of (FLEXERIL) 00:00: mouth 3 [place] tablet 00 (three) Medic al times [facility] daily. ciprofloxac 2016-0 Yes 250mg Take 1 [facility] in HCl 9-15 tablet by [facility] of (CIPRO) 250 00:00: mouth 2 [place] tablet 00 (two) Medical times [facility] daily. ibuprofen 2016-0 Yes 400mg Take 1 [facility] rs (MOTRIN) 9-15 tablet by [facility]y of 400 mg 00:00: mouth 3 [place] tablet 00 (three) Medical times Branch daily with meals. cyclobenzap 2016-0 Yes 5mg Take 1 [facility]ine 9-15 tablet by [facility] of (FLEXERIL) 00:00: mouth 3 [place] tablet 00 (three) Medic al times [facility] daily. ciprofloxac 2016-0 Yes 250mg Take 1 [facility] in HCl 9-15 tablet by [facility] of (CIPRO) 250 00:00: mouth 2 [place] tablet 00 (two) Medical times Branch daily. ibuprofen 2016-0 Yes 400mg Take 1 [facility] rs (MOTRIN) 9-15 tablet by ity of 400 mg 00:00: mouth 3 [place] tablet 00 (three) Medical times Branch daily with meals. cyclobenzap 2016-0 Yes 5mg Take 1 [facility]ine 9-15 tablet by [facility] of (FLEXERIL) 00:00: mouth 3 [place] tablet 00 (three) Medic al times Branch daily. ciprofloxac 2016-0 Yes 250mg Take 1 [facility] in HCl 9-15 tablet by [facility]y of (CIPRO) 250 00:00: mouth 2 [place] tablet 00 (two) Medical times [facility] daily. ibuprofen 2016-0 Yes 400mg Take 1 [facility] rs (MOTRIN) 9-15 tablet by ity of 400 mg 00:00: mouth 3 [place] tablet 00 (three) Medical times Branch daily with meals. cyclobenzap 2016-0 Yes 5mg Take 1 [facility]ine 9-15 tablet by [facility] of (FLEXERIL) 00:00: mouth 3 [place] 5 [place] tablet 00 (three) Medic al times [facility] daily. ciprofloxac 2016-0 Yes 250mg Take 1 [facility] in HCl 9-15 tablet by [facility]y of (CIPRO) 250 00:00: mouth 2 [place] tablet 00 (two) Medical times [facility] daily. ibuprofen 2016-0 Yes 400mg Take 1 [facility] rs (MOTRIN) 9-15 tablet by ity of 400 mg 00:00: mouth 3 [place] tablet 00 (three) Medical times Branch daily with meals. ibuprofen 2016-0 Yes 400mg Take 1 [facility] rs (MOTRIN) 9-15 tablet by ity of 400 mg 00:00: mouth 3 [place] tablet 00 (three) Medical times Branch daily with meals. cyclobenzap 2016-0 Yes 5mg Take 1 [facility]ine 9-15 tablet by [facility]y of (FLEXERIL) 00:00: mouth 3 [place] 5 mg tablet 00 (three) Medic al times Branch daily. ciprofloxac 2016-0 Yes 250mg Take 1 [facility] in HCl 9-15 tablet by ity of (CIPRO) 250 00:00: mouth 2 [place] tablet 00 (two) Medical times Branch daily. cyclobenzap 2016-0 Yes 5mg Take 1 [facility] rine 9-15 tablet by [facility] of (FLEXERIL) 00:00: mouth 3 [place] 5 mg tablet 00 (three) Medic al times Branch daily. ibuprofen 2016-0 Yes 400mg Take 1 [facility] rs (MOTRIN) 9-15 tablet by ity of 400 mg 00:00: mouth 3 [place] tablet 00 (three) Medical times Branch daily with meals. cyclobenzap 2016-0 Yes 5mg Take 1 [facility]ine 9-15 tablet by [facility] of (FLEXERIL) 00:00: mouth 3 [place] 5 mg tablet 00 (three) Medic al times Branch daily. ciprofloxac 2016-0 Yes 250mg Take 1 [facility] in HCl 9-15 tablet by [facility]y of (CIPRO) 250 00:00: mouth 2 [place] mg tablet 00 (two) Medical times Branch daily. ciprofloxac 2016-0 Yes 250mg Take 1 [facility] in HCl 9-15 tablet by ity of (CIPRO) 250 00:00: mouth 2 [place] mg tablet 00 (two) Medical times Branch daily. ibuprofen 2016-0 Yes 400mg Take 1 [facility] rs (MOTRIN) 9-15 tablet by ity of 400 mg 00:00: mouth 3 [place] tablet 00 (three) Medical times Branch daily with meals. cyclobenzap 2016-0 Yes 5mg Take 1 [facility]ine 9-15 tablet by [facility] of (FLEXERIL) 00:00: mouth 3 [place] 5 mg tablet 00 (three) Medic al times Branch daily. ciprofloxac 2016-0 Yes 250mg Take 1 [facility] in HCl 9-15 tablet by ity of (CIPRO) 250 00:00: mouth 2 [place] mg tablet 00 (two) Medical times Branch daily. ibuprofen 2016-0 Yes 400mg Take 1 [facility] rs (MOTRIN) 9-15 tablet by ity of 400 mg 00:00: mouth 3 [place] tablet 00 (three) Medical times Branch daily with meals. cyclobenzap 2016-0 Yes 5mg Take 1 [facility]ine 9-15 tablet by [facility] of (FLEXERIL) 00:00: mouth 3 [place] 5 mg tablet 00 (three) Medic al times Branch daily. ciprofloxac 2016-0 Yes 250mg Take 1 [facility] in HCl 9-15 tablet by ity of (CIPRO) 250 00:00: mouth 2 [place] mg tablet 00 (two) Medical times Branch daily. ibuprofen 2016-0 Yes 400mg Take 1 [facility] rs (MOTRIN) 9-15 tablet by ity of 400 mg 00:00: mouth 3 [place] tablet 00 (three) Medical times Branch daily with meals. cyclobenzap 2016-0 Yes 5mg Take 1 [facility]ine 9-15 tablet by ity of (FLEXERIL) 00:00: mouth 3 [place] 5 mg tablet 00 (three) Medic al times Branch daily. ciprofloxac 2016-0 Yes 250mg Take 1 [facility] in HCl 9-15 tablet by ity of (CIPRO) 250 00:00: mouth 2 [place] mg tablet 00 (two) Medical times Branch daily. ibuprofen 2016-0 Yes 400mg Take 1 [facility] rs (MOTRIN) 9-15 tablet by ity of 400 mg 00:00: mouth 3 [place] tablet 00 (three) Medical times Branch daily with meals. cyclobenzap 2016-0 Yes 5mg Take 1 [facility]ine 9-15 tablet by [facility]y of (FLEXERIL) 00:00: mouth 3 [place] 5 mg tablet 00 (three) Medic al times Branch daily. ciprofloxac 2016-0 Yes 250mg Take 1 [facility] in HCl 9-15 tablet by ity of (CIPRO) 250 00:00: mouth 2 [place] mg tablet 00 (two) Medical times Branch daily. ibuprofen 2016-0 Yes 400mg Take 1 [facility] rs (MOTRIN) 9-15 tablet by ity of 400 mg 00:00: mouth 3 [place] tablet 00 (three) Medical times Branch daily with meals. cyclobenzap 2016-0 Yes 5mg Take 1 [facility]ine 9-15 tablet by ity of (FLEXERIL) 00:00: mouth 3 [place] 5 mg tablet 00 (three) Medic al times Branch daily. ciprofloxac 2016-0 Yes 250mg Take 1 [facility] vers in HCl 9-15 tablet by ity of (CIPRO) 250 00:00: mouth 2 [place] mg tablet 00 (two) Medical times Branch daily. ibuprofen 2016-0 Yes 400mg Take 1 [facility] rs (MOTRIN) 9-15 tablet by ity of 400 mg 00:00: mouth 3 [place] tablet 00 (three) Medical times Branch daily with meals. ibuprofen 2016-0 Yes 400mg Take 1 [facility] rs (MOTRIN) 9-15 tablet by ity of 400 mg 00:00: mouth 3 [place] tablet 00 (three) Medical times Branch daily with meals. cyclobenzap 2016-0 Yes 5mg Take 1 [facility]ine 9-15 tablet by ity of (FLEXERIL) 00:00: mouth 3 [place] mg tablet 00 (three) Medic al times Branch daily. ciprofloxac 2016-0 Yes 250mg Take 1 [facility] vers in HCl 9-15 tablet by ity of (CIPRO) 250 00:00: mouth 2 [place] mg tablet 00 (two) Medical times Branch daily. ibuprofen 2016-0 Yes 400mg Take 1 [facility] rs (MOTRIN) 9-15 tablet by ity of 400 mg 00:00: mouth 3 [place] tablet 00 (three) Medical times Branch daily with meals. cyclobenzap 2016-0 Yes 5mg Take 1 [facility]ine 9-15 tablet by ity of (FLEXERIL) 00:00: mouth 3 [place] 5 mg tablet 00 (three) Medic al times Branch daily. ciprofloxac 2016-0 Yes 250mg Take 1 [facility] vers in HCl 9-15 tablet by ity of (CIPRO) 250 00:00: mouth 2 [place] mg tablet 00 (two) Medical times Branch daily. cyclobenzap 2016-0 Yes 5mg Take 1 [facility]ine 9-15 tablet by ity of (FLEXERIL) 00:00: mouth 3 [place] mg tablet 00 (three) Medic al times Branch daily. ibuprofen 2016-0 Yes 400mg Take 1 [facility] rs (MOTRIN) 9-15 tablet by ity of 400 mg 00:00: mouth 3 [place] tablet 00 (three) Medical times Branch daily with meals. cyclobenzap 2016-0 Yes 5mg Take 1 [facility]ine 9-15 tablet by ity of (FLEXERIL) 00:00: mouth 3 [place] mg tablet 00 (three) Medic al times Branch daily. ciprofloxac 2016-0 Yes 250mg Take 1 [facility] in HCl 9-15 tablet by ity of (CIPRO) 250 00:00: mouth 2 [place] mg tablet 00 (two) Medical times Branch daily. ciprofloxac 2016-0 Yes 250mg Take 1 [facility] vers in HCl 9-15 tablet by ity of (CIPRO) 250 00:00: mouth 2 [place] mg tablet 00 (two) Medical times Branch daily. ibuprofen 2016-0 2021- No 400mg Take 1 Univ ers (MOTRIN) 9-15 05-04 tablet by ity o f 400 mg 00:00: 00:00 mouth 3 [place] tablet 00 :00 (three) Medical times Branch daily with meals. cyclobenzap 2021- No 5mg Take 1 Uni vers rine 01-10 tablet by ity of (FLEXERIL) 00:00: 00:00 mouth 3 [place] 5 mg tablet 00 :00 (three) Medic al times [place] daily. ciprofloxac 2021- No 250mg Take 1 [facility] [place] [facility] HCl 01-10 tablet by ity of (CIPRO) 250 00:00: 00:00 mouth 2 [place] mg tablet 00 :00 (two) Medical times Branch daily. Immunizations Ordered Filled Immunization Date Status Comments Sour e Immunization Name Name SARS-COV-2 COVID-19 2020-08-16 Completed [facility] of UNSPECIFIED VACCINE 00:00:00 [facility] SARS-COV-2 COVID-19 2020-08-16 Completed [facility]ive rsity of UNSPECIFIED VACCINE 00:00:00 [facility] SARS-COV-2 COVID-19 2020-08-16 Completed [facility]ive rsity of UNSPECIFIED VACCINE 00:00:00 [facility] SARS-COV-2 COVID-19 2020-08-16 Completed [facility]ive rsity of UNSPECIFIED VACCINE 00:00:00 [facility] SARS-COV-2 COVID-19 2020-08-16 Completed [facility]ive rsity of UNSPECIFIED VACCINE 00:00:00 [facility] SARS-COV-2 COVID-19 2020-08-16 Completed [facility]ive rsity of UNSPECIFIED VACCINE 00:00:00 [facility] SARS-COV-2 COVID-19 2020-08-16 Completed [facility]ive rsity of UNSPECIFIED VACCINE 00:00:00 [facility] SARS-COV-2 COVID-19 2020-08-16 Completed [facility]ive rsity of UNSPECIFIED VACCINE 00:00:00 [facility] COVID-19 Moderna 18 2020-07-22 [facility]:00 COVID-19 Moderna 18 2020-07-22 [facility] 00:00:00 COVID-19 Moderna 18 2020-07-22 Completed [facility] 00:00:00 COVID-19 Moderna 18 2020-07-22 Completed [facility] 00:00:00 COVID-19 Moderna 18 2020-07-22 Completed [facility] Vacc[facility] 00:00:00 COVID-19 Moderna 18 2020-07-22 Completed [facility] Vacc[facility] 00:00:00 COVID-19 Moderna 18 2020-07-22 Completed [facility] Vacc[facility] 00:00:00 COVID-19 Moderna 18 2020-07-22 Completed [facility] Vacc[facility] 00:00:00 COVID-19 Moderna 18 2020-07-22 Completed [facility] 00:00:00 [id number] 2020-07-22 Completed [facility] [place] [id number] 00:00:00 SARS-COV-2 COVID-19 2020-07-18 Completed [facility]ive rsity of UNSPECIFIED VACCINE 00:00:00 [facility] SARS-COV-2 COVID-19 2020-07-18 Completed [facility]ive rsity of UNSPECIFIED VACCINE 00:00:00 [facility] SARS-COV-2 COVID-19 2020-07-18 Completed [facility]ive rsity of UNSPECIFIED VACCINE 00:00:00 [facility] SARS-COV-2 COVID-19 2020-07-18 Completed [facility]ive rsity of UNSPECIFIED VACCINE 00:00:00 [facility] SARS-COV-2 COVID-19 2020-07-18 Completed [facility]ive rsity of UNSPECIFIED VACCINE 00:00:00 [facility] SARS-COV-2 COVID-19 2020-07-18 Completed Unive rsity of UNSPECIFIED VACCINE 00:00:00 [facility] SARS-COV-2 COVID-19 2020-07-18 Completed [facility]ive rsity of UNSPECIFIED VACCINE 00:00:00 [facility] SARS-COV-2 COVID-19 2020-07-18 Completed [facility]ive rsity of UNSPECIFIED VACCINE 00:00:00 [facility] [id number] 2020-06-25 Completed [facility] [id number] 00:00:00 COVID-19 Moderna 18 2020-06-24 Completed [facility] Vacc[facility] 00:00:00 COVID-19 Moderna 18 2020-06-24 Completed [facility] Vacc[facility] 00:00:00 COVID-19 Moderna 18 2020-06-24 Completed [facility] Vacc[facility] 00:00:00 COVID-19 Moderna 18 2020-06-24 Completed [facility] Vacc[facility] 00:00:00 COVID-19 Moderna 18 2020-06-24 Completed [facility] Vacc[facility] 00:00:00 COVID-19 Moderna 18 2020-06-24 Completed [facility] Vacc[facility] 00:00:00 COVID-19 Moderna 18 2020-06-24 Completed [facility] Vacc[facility] 00:00:00 COVID-19 Moderna 18 2020-06-24 Completed [facility] Vacc[facility] 00:00:00 COVID-19 Moderna 18 2020-06-24 Completed [facility] Vaccination 00:00:00 Influenza Virus 2019-09-08 Completed [facility] Vaccine [facility] IM 00:00:00 [place] [facility] Multi-dose 6+ MO Branch Influenza Virus 2019-09-08 Completed [facility] of Vaccine Quad IM 00:00:00 [place] [facility] Multi-dose 6+ MO Branch Influenza Virus 2019-09-08 Completed [facility] of Vaccine [facility] IM 00:00:00 [place] [facility] Multi-dose 6+ MO Branch Influenza Virus 2019-09-08 Completed [facility] of Vaccine Quad IM 00:00:00 [place] [facility] Multi-dose 6+ MO Branch Influenza Virus 2019-09-08 Completed [facility] of Vaccine Quad IM 00:00:00 [place] [facility] ical Multi-dose 6+ MO Branch Influenza Virus 2019-09-08 Completed [facility] of Vaccine Quad IM 00:00:00 [place] [facility] Multi-dose 6+ MO Branch Influenza Virus 2019-09-08 Completed [facility] of Vaccine Quad IM 00:00:00 [place] [facility] ical Multi-dose 6+ MO Branch Influenza Virus 2019-09-08 Completed [facility]it [facility] of Vaccine Quad IM 00:00:00 [place] [facility] ical Multi-dose 6+ MO Branch TDAP 2019-06-13 Completed University of 00:00:00 [facility] TDAP 2019-06-13 Completed University of 00:00:00 [facility] TDAP 2019-06-13 Completed University of 00:00:00 [facility] TDAP 2019-06-13 Completed University of 00:00:00 [facility] TDAP 2019-06-13 Completed University 00:00:00 [facility] TDAP 2019-06-13 Completed University 00:00:00 [facility] TDAP 2019-06-13 Completed University 00:00:00 [facility] TDAP 2019-06-13 Completed University 00:00:00 [facility] Influenza Virus 2019-02-22 Completed [facility] of Vaccine Recomb Quad 00:00:00 [place] [facility] IM, Preserv and ABX Branc h Free 18-64 YRS Influenza Virus 2019-02-22 Completed [facility] of Vaccine Recomb Quad 00:00:00 [place] [facility] IM, Preserv and ABX Branc h Free 18-64 YRS Influenza Virus 2019-02-22 Completed [facility]it y of Vaccine Recomb Quad 00:00:00 [place] [facility] IM, Preserv and ABX Branc h Free 18-64 YRS Influenza Virus 2019-02-22 Completed [facility]it y of Vaccine Recomb Quad 00:00:00 [place] [facility] IM, Preserv and ABX Branc h Free 18-64 YRS Influenza Virus 2019-02-22 Completed [facility]it y of Vaccine Recomb Quad 00:00:00 [place] [facility] IM, Preserv and ABX Branc h Free 18-64 YRS Influenza Virus 2019-02-22 Completed [facility]it [facility] of Vaccine Recomb Quad 00:00:00 [place] [facility] IM, Preserv and ABX Branc h Free 18-64 YRS Influenza Virus 2019-02-22 Completed [facility] of Vaccine Recomb Quad 00:00:00 [place] [facility] IM, Preserv and ABX Branc h Free 18-64 YRS Influenza Virus 2019-02-22 Completed [facility] of Vaccine Recomb Quad 00:00:00 [place] [facility] IM, Preserv and ABX Branc h Free 18-64 YRS Vital Signs Vital Name Observation Time Observation Value Comments Source Systolic blood 2021-09-05 18:11:00 122 mm[Hg] [facility] Diastolic blood 2021-09-05 18:11:00 77 mm[Hg] [facility] Heart rate 2021-09-05 18:11:00 78 /min [facility] temperature 2021-09-05 18:11:00 [facility]61 [facility] Systolic blood 2021-08-29 18:08:00 153 mm[Hg] [facility] Diastolic blood 2021-08-29 18:08:00 80 mm[Hg] [facility] Heart rate 2021-08-29 18:08:00 85 /min [facility] 2021-08-29 18:08:00 [facility]89 [facility] Systolic blood 2021-08-22 16:16:00 130 mm[Hg] [facility] Diastolic blood 2021-08-22 16:16:00 77 mm[Hg] [facility] Heart rate 2021-08-22 16:16:00 80 /min [facility] 2021-08-22 16:16:00 [facility]94 [facility] Systolic blood 2021-08-08 18:16:00 115 mm[Hg] [facility] Diastolic blood 2021-08-08 18:16:00 73 mm[Hg] [facility] Heart rate 2021-08-08 18:16:00 83 /min [facility] temperature 2021-08-08 18:16:00 [facility]94 [facility] Body height 2021-08-08 18:16:00 162.6 cm [facility] weight 2021-08-08 18:16:00 [facility]236 [facility] BMI 2021-08-08 18:16:00 23.17 [facility]m2 [facility] Systolic blood 2021-07-25 15:04:00 132 mm[Hg] [facility] Diastolic blood 2021-07-25 15:04:00 83 mm[Hg] [facility] Heart rate 2021-07-25 15:04:00 75 /min [facility] temperature 2021-07-25 15:04:00 [facility]5 [facility] Systolic blood 2021-06-27 18:13:00 130 mm[Hg] [facility] Diastolic blood 2021-06-27 18:13:00 83 mm[Hg] [facility] Heart rate 2021-06-27 18:13:00 102 /min [facility] temperature 2021-06-27 18:13:00 [facility]61 [facility] Body height 2021-06-27 18:13:00 162.6 cm [facility] weight 2021-06-27 18:13:00 63[facility]504 [facility] BMI 2021-06-27 18:13:00 24.03 kg[facility]m2 [facility] Heart rate 2021-05-04 15:57:00 62 /min [facility] Respiratory rate 2021-05-04 15:57:00 18 /min [facility] Oxygen saturation in 2021-05-04 15:57:00 98 /min [facility] Arterial blood by [facility] Pulse oximetry Branch Systolic blood 2021-05-04 14:52:00 110 mm[Hg] [facility]ity of [facility] Diastolic blood 2021-05-04 14:52:00 60 [facility] 2021-[facility]-04 14:52:00 36.67 [facility] Body weight 2021-04-30 17:00:00 63 kg [facility] BMI 2021-04-30 17:00:00 23.84 kg/m2 [facility] Body height 2021-04-29 16:30:00 162.6 cm [facility] Systolic blood 2021-04-25 16:00:00 117 mm[Hg] [facility] Diastolic blood 2021-04-25 16:00:00 80 mm[Hg] [facility] Heart rate 2021-04-25 16:00:00 101 /min [facility] Body temperature 2021-04-25 16:00:00 36.44 [facility] Body weight 2021-04-25 16:00:00 61[facility]236 [facility] BMI 2021-04-25 16:00:00 23.17 kg[facility]2 [facility] Systolic blood 2021-02-14 18:28:00 114 mm[Hg] [facility] Diastolic blood 2021-02-14 18:28:00 71 mm[Hg] [facility] Heart rate 2021-02-14 18:28:00 108 /min [facility] Body temperature 2021-02-14 18:28:00 37 [facility] Systolic blood 2020-12-06 18:59:00 100 mm[Hg] [facility] Diastolic blood 2020-12-06 18:59:00 62 mm[Hg] [facility] Heart rate 2020-12-06 18:59:00 94 /min [facility] Body temperature 2020-12-06 18:59:00 36.61 [facility] Body height 2020-12-06 18:59:00 162.6 cm [facility] Body weight 2020-12-06 18:59:00 68.04 [facility] BMI 2020-12-06 18:59:00 25.75 [facility]2 [facility] Systolic blood 2020-01-24 21:08:00 149 mm[Hg] [facility] Diastolic blood 2020-01-24 21:08:00 86 mm[Hg] [facility] Heart rate 2020-01-24 21:08:00 94 /min [facility] Body height 2020-01-24 21:08:00 162.6 cm [facility] Body weight 2020-01-24 21:08:00 68.947 kg [facility] BMI 2020-01-24 21:08:00 26.09 kg/m2 [facility] Oxygen saturation in 2020-01-24 21:08:00 98 /min [facility] Arterial blood by [facility] Pulse oximetry Branch Systolic blood 2019-11-30 19:25:00 147 mm[Hg] [facility] Diastolic blood 2019-11-30 19:25:00 82 mm[Hg] [facility] Heart rate 2019-11-30 19:25:00 87 /min [facility] Respiratory rate 2019-11-30 19:25:00 19 /min [facility] Body height 2019-11-30 19:25:00 162.6 cm [facility] Body weight 2019-11-30 19:25:00 68.584 kg [facility] BMI 2019-11-30 19:25:00 25.95 kg/m2 [facility] Systolic blood 2019-06-28 16:11:00 148 mm[Hg] [facility] Diastolic blood 2019-06-28 16:11:00 82 mm[Hg] [facility]ive rsity of pressure [facility] Heart rate 2019-06-28 16:11:00 87 /min [facility] Body temperature 2019-06-28 16:11:[address] [facility] 2019-06-28 16:11:00 16 /min [facility] Body height 2019-06-28 16:11:00 162.6 cm [facility] Body weight 2019-06-28 16:11:00 69.514 kg [facility] BMI 2019-06-28 16:11:00 26.31 kg/m2 [facility] Temperature Oral (F) 2021-03-17 14:50:00 98.2 F [facility] Respitory Rate 2021-03-17 14:50:00 [facility] Systolic (mm Hg) 2021-03-17 14:50:00 [facility] Diastolic (mm Hg) 2021-03-17 14:50:00 [facility] Respitory Rate 2021-03-17 13:30:00 [facility] Systolic (mm Hg) 2021-03-17 13:30:00 [facility] Diastolic (mm Hg) 2021-03-17 13:30:00 [facility] Respitory Rate 2021-03-17 12:12:00 [facility] Systolic (mm Hg) 2021-03-17 12:12:00 [facility] Diastolic (mm Hg) 2021-03-17 12:12:00 [facility] Weight 2021-03-17 09:36:00 [facility] Heart Rate 2021-03-17 09:36:00 [facility] Temperature Oral (F) 2021-03-17 09:36:00 98.3 F [facility] Systolic (mm Hg) 2021-03-15 20:06:00 [facility] Diastolic (mm Hg) 2021-03-15 20:06:00 [facility] Heart Rate 2021-03-15 20:06:00 [facility] Temperature Oral (F) 2021-03-15 20:06:00 98.7 F [facility] Respitory Rate 2021-03-15 20:06:00 [facility] Temperature Oral (F) 2021-03-15 16:51:00 98.1 F [facility] Systolic (mm Hg) 2021-03-15 16:51:00 [facility] Diastolic (mm Hg) 2021-03-15 16:51:00 [facility] Respitory Rate 2021-03-15 16:51:00 [facility] Heart Rate 2021-03-15 16:51:00 [facility] Systolic (mm Hg) 2021-03-15 14:16:00 [facility] Diastolic (mm Hg) 2021-03-15 14:16:00 [facility] Respitory Rate 2021-03-15 14:16:00 [facility] Temperature Oral (F) 2021-03-14 22:00:00 98.4 F [facility] Heart Rate 2021-03-14 14:46:00 [facility] Temperature Oral (F) 2021-03-05 05:33:00 97.5 F [facility] Heart Rate 2021-03-05 05:33:00 [facility] Respitory Rate 2021-03-05 05:33:00 [facility] Systolic (mm Hg) 2021-03-05 05:33:00 [facility] Diastolic (mm Hg) 2021-03-05 05:33:00 [facility] Temperature Oral (F) 2021-03-05 01:29:00 99.2 F [facility] Heart Rate 2021-03-05 01:29:00 [facility] Respitory Rate 2021-03-05 01:29:00 [facility] Systolic (mm Hg) 2021-03-05 01:29:00 [facility] Diastolic (mm Hg) 2021-03-05 01:29:00 [facility] Temperature Oral (F) 2021-03-04 17:30:00 98 F [facility] Heart Rate 2021-03-04 17:30:00 [facility] Respitory Rate 2021-03-04 17:30:00 [facility] Systolic (mm Hg) 2021-03-04 17:30:00 [facility] Diastolic (mm Hg) 2021-03-04 17:30:00 [facility] Height 2021-03-01 01:13:00 162.56 cm [facility] Weight 2021-03-01 01:13:00 [facility] BMI Calculated 2021-03-01 01:13:00 [facility] Weight 2021-02-28 20:29:00 [facility] Systolic (mm Hg) 2021-02-28 20:29:00 [facility] Diastolic (mm Hg) 2021-02-28 20:29:00 [facility] Heart Rate 2021-02-28 20:29:00 [facility] Respitory Rate 2021-02-28 20:29:00 [facility] Temperature Oral (F) 2021-02-28 20:29:00 98.0 F [facility] Heart Rate 2021-01-24 00:20:00 [facility] Respitory Rate 2021-01-24 00:20:00 [facility] Systolic (mm Hg) 2021-01-24 00:20:00 [facility] Diastolic (mm Hg) 2021-01-24 00:20:00 [facility] Heart Rate 2021-01-23 20:29:00 [facility] Respitory Rate 2021-01-23 20:29:00 [facility] Systolic (mm Hg) 2021-01-23 20:29:00 [facility] Diastolic (mm Hg) 2021-01-23 20:29:00 [facility] Heart Rate 2021-01-23 16:38:00 [facility] Respitory Rate 2021-01-23 16:38:00 [facility] Systolic (mm Hg) 2021-01-23 16:38:00 [facility] Diastolic (mm Hg) 2021-01-23 16:38:00 [facility] Temperature Oral (F) 2021 16:25:00 98.5 F [facility] Temperature Oral (F) 2021 15:57:00 97.9 F [facility] Heart Rate 2021 00:39:00 [facility] Respitory Rate 2021 00:39:00 [facility] Systolic (mm Hg) 2021 00:39:00 [facility] Diastolic (mm Hg) 2021 00:39:00 [facility] Temperature Oral (F) 2021-01-21 17:26:00 97.7 F [facility] Heart Rate 2021-01-21 17:26:00 [facility] Systolic (mm Hg) 2021-01-21 17:26:00 [facility] Diastolic (mm Hg) 2021-01-21 17:26:00 [facility] Respitory Rate 2021-01-21 17:26:00 [facility] Heart Rate 2021-01-21 08:55:00 [facility] Respitory Rate 2021-01-21 08:55:00 [facility] Systolic (mm Hg) 2021-01-21 08:55:00 [facility] Diastolic (mm Hg) 2021-01-21 08:55:00 [facility] Temperature Oral (F) 2021-01-20 22:15:00 98.0 F [facility] Temperature Oral (F) 2021-01-20 16:38:00 98.4 F [facility] Height 2021-01-13 11:42:00 162.56 cm [facility] Weight 2021-01-13 11:42:00 [facility] Height 2021-01-06 17:18:00 162.56 cm [facility] Height 2021-01-06 13:46:00 162.56 cm [facility] Respitory Rate 2020-12-25 07:00:00 [facility] Respitory Rate 2020-12-25 06:00:00 [facility] Respitory Rate 2020-12-25 05:00:00 [facility] Systolic (mm Hg) 2020-12-25 05:00:00 [facility] Diastolic (mm Hg) 2020-12-25 05:00:00 [facility] Systolic (mm Hg) 2020-12-25 02:00:00 [facility] Diastolic (mm Hg) 2020-12-25 02:00:00 [facility] Systolic (mm Hg) 2020-12-25 01:00:00 [facility] Diastolic (mm Hg) 2020-12-25 01:00:00 [facility] Temperature Oral (F) 2020-12-24 21:00:00 100.2 F [facility] Temperature Oral (F) 2020-12-24 17:00:00 99.1 F [facility] Temperature Oral (F) 2020-12-24 13:39:00 98 F [facility] Temperature Oral (F) 2020-12-18 05:15:00 98.3 F [facility] Systolic (mm Hg) 2020-12-18 05:00:00 [facility] Diastolic (mm Hg) 2020-12-18 05:00:00 [facility] Respitory Rate 2020-12-18 05:00:00 [facility] Systolic (mm Hg) 2020-12-18 04:00:00 [facility] Diastolic (mm Hg) 2020-12-18 04:00:00 [facility] Respitory Rate 2020-12-18 04:00:00 [facility] Systolic (mm Hg) 2020-12-18 03:00:00 [facility] Diastolic (mm Hg) 2020-12-18 03:00:00 [facility] Respitory Rate 2020-12-18 03:00:00 [facility] Temperature Oral (F) 2020-12-18 02:07:00 99.4 F [facility] Temperature Oral (F) 2020-12-17 21:34:00 98.6 F [facility] Heart Rate 2020-12-16 17:30:00 [facility] Heart Rate 2020-12-16 13:24:00 [facility] Heart Rate 2020-12-16 08:54:00 [facility] Height 2020-12-16 04:35:00 162.56 cm [facility] Weight 2020-12-16 04:35:00 [facility] BMI Calculated 2020-12-16 04:35:00 [facility] Height 2020-12-15 12:30:00 162.56 cm [facility] Weight 2020-12-15 12:30:00 [facility] BMI Calculated 2020-12-15 12:30:00 [facility] Height 2020-12-13 15:50:00 162.56 cm [facility] Weight 2020-12-13 15:50:00 [facility] BMI Calculated 2020-12-13 15:50:00 [facility] Temperature Oral (F) 2020-09-22 20:26:00 98.1 F [facility] Heart Rate 2020-09-22 20:26:00 [facility] Respitory Rate 2020-09-22 20:26:00 [facility] Systolic (mm Hg) 2020-09-22 20:26:00 [facility] Diastolic (mm Hg) 2020-09-22 20:26:00 [facility] Temperature Oral (F) 2020-09-22 16:04:00 97.5 F [facility] Heart Rate 2020-09-22 16:04:00 [facility] Respitory Rate 2020-09-22 16:04:00 [facility] Systolic (mm Hg) 2020-09-22 16:04:00 [facility] Diastolic (mm Hg) 2020-09-22 16:04:00 [facility] Temperature Oral (F) 2020-09-22 12:02:00 98.1 F [facility] Heart Rate 2020-09-22 12:02:00 [facility] Respitory Rate 2020-09-22 12:02:00 [facility] Systolic (mm Hg) 2020-09-22 12:02:00 [facility] Diastolic (mm Hg) 2020-09-22 12:02:00 [facility] Systolic (mm Hg) 2020-09-18 08:00:00 [facility] Diastolic (mm Hg) 2020-09-18 08:00:00 [facility] Respitory Rate 2020-09-18 08:00:00 [facility] Respitory Rate 2020-09-18 07:00:00 [facility] Systolic (mm Hg) 2020-09-18 07:00:00 [facility] Diastolic (mm Hg) 2020-09-18 07:00:00 [facility] Systolic (mm Hg) 2020-09-18 06:00:00 [facility] Diastolic (mm Hg) 2020-09-18 06:00:00 [facility] Respitory Rate 2020-09-18 06:00:00 [facility] Temperature Oral (F) 2020-09-16 08:00:00 100.0 F [facility] Temperature Oral (F) 2020-09-16 06:12:00 99.2 F [facility] Height 2020-09-16 04:50:00 162.56 cm [facility] Weight 2020-09-16 04:50:00 [facility] Temperature Oral (F) 2020-09-16 04:19:00 99.5 F [facility] Height 2020-09-15 20:55:00 162.56 cm [facility] BMI Calculated 2020-09-15 20:55:00 [facility] Weight 2020-09-15 20:55:00 [facility] Heart Rate 2020-09-15 20:55:00 [facility] Temperature Oral (F) 2020-08-28 20:15:00 98.4 F [facility] Heart Rate 2020-08-28 20:15:00 [facility] Respitory Rate 2020-08-28 20:15:00 [facility] Systolic (mm Hg) 2020-08-28 20:15:00 [facility] Diastolic (mm Hg) 2020-08-28 20:15:00 [facility] Temperature Oral (F) 2020-08-28 17:00:00 98.6 F [facility] Heart Rate 2020-08-28 17:00:00 [facility] Respitory Rate 2020-08-28 17:00:00 [facility] Systolic (mm Hg) 2020-08-28 17:00:00 [facility] Diastolic (mm Hg) 2020-08-28 17:00:00 [facility] Temperature Oral (F) 2020-08-28 13:30:00 97.1 F [facility] Heart Rate 2020-08-28 13:30:00 [facility] Respitory Rate 2020-08-28 13:30:00 [facility] Systolic (mm Hg) 2020-08-28 13:30:00 [facility] Diastolic (mm Hg) 2020-08-28 13:30:00 [facility] Temperature Oral (F) 2020-08-28 04:25:00 98.0 F [facility] Heart Rate 2020-08-28 04:25:00 [facility] Respitory Rate 2020-08-28 04:25:00 [facility] Systolic (mm Hg) 2020-08-28 04:25:00 [facility] Diastolic (mm Hg) 2020-08-28 04:25:00 [facility] Systolic (mm Hg) 2020-08-28 01:01:00 [facility] Diastolic (mm Hg) 2020-08-28 01:01:00 [facility] Heart Rate 2020-08-28 01:01:00 [facility] Temperature Oral (F) 2020-08-28 01:01:00 97.7 F [facility] Temperature Oral (F) 2020-08-27 20:48:00 97.5 F [facility] Heart Rate 2020-08-27 20:48:00 [facility] Respitory Rate 2020-08-27 20:48:00 [facility] Systolic (mm Hg) 2020-08-27 20:48:00 [facility] Diastolic (mm Hg) 2020-08-27 20:48:00 [facility] Respitory Rate 2020-08-27 16:12:00 [facility] Height 2020-08-26 03:41:00 162.56 cm [facility] Weight 2020-08-26 03:41:00 [facility] BMI Calculated 2020-08-26 03:41:00 [facility] Height 2020-08-25 21:18:00 162.56 cm [facility] BMI Calculated 2020-08-25 21:18:00 [facility] Weight 2020-08-25 21:18:00 [facility] Temperature Oral (F) 2020-08-23 19:07:00 98.9 F [facility] Heart Rate 2020-08-23 19:07:00 [facility] Respitory Rate 2020-08-23 19:07:00 [facility] Systolic (mm Hg) 2020-08-23 19:07:00 [facility] Diastolic (mm Hg) 2020-08-23 19:07:00 [facility] Temperature Oral (F) 2020-08-23 12:50:00 99.2 F [facility] Heart Rate 2020-08-23 12:50:00 [facility] Respitory Rate 2020-08-23 12:50:00 [facility] Systolic (mm Hg) 2020-08-23 12:50:00 [facility] Diastolic (mm Hg) 2020-08-23 12:50:00 [facility] Temperature Oral (F) 2020-08-23 09:46:00 99.1 F [facility] Heart Rate 2020-08-23 09:46:00 [facility] Respitory Rate 2020-08-23 09:46:00 [facility] Systolic (mm Hg) 2020-08-23 09:46:00 [facility] Diastolic (mm Hg) 2020-08-23 09:46:00 [facility] Temperature Oral (F) 2020-08-21 05:57:00 98.9 F [facility] Heart Rate 2020-08-21 05:57:00 [facility] Respitory Rate 2020-08-21 05:57:00 [facility] Systolic (mm Hg) 2020-08-21 05:57:00 [facility] Diastolic (mm Hg) 2020-08-21 05:57:00 [facility] Temperature Oral (F) 2020-08-21 01:30:00 99.1 F [facility] Heart Rate 2020-08-21 01:30:00 [facility] Respitory Rate 2020-08-21 01:30:00 [facility] Systolic (mm Hg) 2020-08-21 01:30:00 [facility] Diastolic (mm Hg) 2020-08-21 01:30:00 [facility] Temperature Oral (F) 2020-08-20 22:05:00 100.8 F [facility] Heart Rate 2020-08-20 22:05:00 [facility] Respitory Rate 2020-08-20 22:05:00 [facility] Systolic (mm Hg) 2020-08-20 22:05:00 [facility] Diastolic (mm Hg) 2020-08-20 22:05:00 [facility] Height 2020-08-16 11:16:00 162.56 cm [facility] Weight 2020-08-16 11:16:00 [facility] BMI Calculated 2020-08-16 11:16:00 [facility] Height 2020-08-15 19:45:00 165.1 cm [facility] BMI Calculated 2020-08-15 19:45:00 [facility] Weight 2020-08-15 19:45:00 [facility] Systolic blood 2020-01-06 03:06:00 114 mm[Hg] [facility] Diastolic blood 2020-01-06 03:06:00 57 mm[Hg] [facility] Heart rate 2020-01-06 03:06:00 69 /min [facility] Body temperature 2020-01-06 03:06:00 36.28 Sparkle [facility] Respiratory rate 2020-01-06 03:06:00 17 /min [facility] Oxygen saturation in 2020-01-06 03:06:00 97 /min [facility] Arterial blood by [facility]ter Pulse oximetry Systolic (mm Hg) 2018-12-30 15:30:00 [facility] Diastolic (mm Hg) 2018-12-30 15:30:00 [facility] Heart Rate 2018-12-30 15:30:00 [facility] Respitory Rate 2018-12-30 15:30:00 [facility] Temperature Oral (F) 2018-12-30 15:30:00 98.6 F [facility] Height 2018-12-30 15:30:00 162.56 cm [facility] Weight 2018-12-30 15:30:00 [facility] BMI Calculated 2018-12-30 15:30:00 [facility] BMI Calculated 2018-09-08 14:29:00 [facility] Weight 2018-09-08 14:29:00 [facility] Height 2018-09-08 14:29:00 162.56 cm [facility] Temperature Oral (F) 2018-09-08 14:29:00 97.8 F [facility] Heart Rate 2018-09-08 14:29:00 [facility] Systolic (mm Hg) 2018-09-08 14:29:00 [facility] Diastolic (mm Hg) 2018-09-08 14:29:00 [facility] Systolic (mm Hg) 2018-08-29 13:16:00 [facility] Diastolic (mm Hg) 2018-08-29 13:16:00 [facility] Respitory Rate 2018-08-29 13:16:00 [facility] Temperature Oral (F) 2018-08-29 13:16:00 97.9 F [facility] Heart Rate 2018-08-29 13:16:00 [facility] Respitory Rate 2018-08-29 09:56:00 [facility] Systolic (mm Hg) 2018-08-29 09:56:00 [facility] Diastolic (mm Hg) 2018-08-29 09:56:00 [facility] Temperature Oral (F) 2018-08-29 09:56:00 98.1 F [facility] Heart Rate 2018-08-29 09:56:00 [facility] Respitory Rate 2018-08-29 05:04:00 [facility] Systolic (mm Hg) 2018-08-29 05:04:00 [facility] Diastolic (mm Hg) 2018-08-29 05:04:00 [facility] Heart Rate 2018-08-29 05:04:00 [facility] Temperature Oral (F) 2018-08-29 05:04:00 98.2 F [facility] Weight 2018-08-25 15:19:00 [facility] BMI Calculated 2018-08-25 15:19:00 [facility] Height 2018-08-25 15:19:00 162.56 cm [facility] Heart Rate 2018-08-25 15:19:00 [facility] Temperature Oral (F) 2018-08-25 15:19:00 98.0 F [facility] Systolic (mm Hg) 2018-08-25 15:19:00 [facility] Diastolic (mm Hg) 2018-08-25 15:19:00 [facility] BMI Calculated 2018-08-24 13:35:00 [facility] Height 2018-08-24 13:35:00 162.56 cm [facility] Weight 2018-08-24 13:35:00 [facility] Weight 2018-07-21 21:30:00 [facility] Height 2018-07-21 21:30:00 162.56 cm [facility] BMI Calculated 2018-07-21 21:30:00 [facility] Systolic (mm Hg) 2018-07-21 21:30:00 [facility] Diastolic (mm Hg) 2018-07-21 21:30:00 [facility] Heart Rate 2018-07-21 21:30:00 [facility] Temperature Oral (F) 2018-07-21 21:30:00 98.0 F [facility] Procedures Procedure Date / Time Performing Clinician Source Performed EXTERNAL PROVIDER RECORDS 2021-07-16 Doctor Unassigned, [facility] 05:01:00 [facility] EXTERNAL PROVIDER RECORDS 2021-06-04 Doctor Unassigned, [facility] 06:01:00 [facility] MAGNESIUM 2021-05-02 [facility] 09:43:00 [facility] BASIC METABOLIC PANEL (NA, 2021-05-02 [facility] K, CL, CO2, GLUCOSE, BUN, 09:43:00 [facility] CREATININE, CA) CBC WITH DIFF 2021-05-02 [facility] 09:43:00 [facility] BASIC METABOLIC PANEL (NA, 2021-05-01 [facility] K, CL, CO2, GLUCOSE, BUN, 09:34:00 [facility] CREATININE, CA) CBC WITH DIFF 2021-05-01 [facility] 09:34:00 [facility] AC PANEL 20 + LACTIC ACID 2021-04-30 Bobbi Everett [facility] 19:39:00 [facility] BASIC METABOLIC PANEL (NA, [facility]04[facility], CO2, GLUCOSE, BUN, 09:36:00 Medica l [facility] CREATININE, CA) CBC WITH DIFF 2021-04-30 [facility] 09:[facility] MRSA / MSSA SCREEN BY PCR, 2021-04-[address] [facility] NARES 05:00:00 [facility] XR CHEST 1 VW 2021-04-29 [facility] 17:47:52 [facility] HB ECG ROUTINE & RHYTHM 2021-04-29 [facility] STRIP 17:06:22 [facility] BLOOD CULTURE SCREEN 2021-04-29 [facility] 16:40:00 [facility] [place] TROPONIN I 2021-04-29 [facility] 16:40:00 [facility] COMP. METABOLIC PANEL 2021-04-29 [facility] ([id number]) 16:40:00 [facility] PROTHROMBIN TIME / INR 2021-04-29 [facility] 16:40:00 [facility] [place] N-TERMINAL PRO-BNP 2021-04-29 [facility] 16:40:00 [facility] [place] LACTIC ACID WHOLE BLOOD 2021-04-29 [facility] 16:40:00 [facility] CBC WITH DIFF 2021-04-29 [facility] 16:39:00 [facility] COVID-19 (ID NOW RAPID 2021-04-29 [facility] TESTING) 16:39:00 [facility] LAB ONLY COVID 2021-04-29 [facility] INTERPRETATION 16:39:00 [facility] ABG+COOX+NA+K+GLU+CA2+ 2021-04-29 [facility] 16:36:00 [facility] CRITICAL CARE 2021-04-29 [facility] 16:24:00 [facility] MEDICATION CORRESPONDENCE 2020-06-09 Doctor Unassigned, [facility] versity [facility] 06:01:00 [facility] CONSENT FOR CONTRACEPTION 2020-05-15 Doctor Unassigned, [facility] 06:01:00 [facility] CONTROLLED SUBSTANCE 2020-04-04 Doctor Unassigned, [facility] PRESCRIPTION 06:01:00 [facility] MEDICATION CORRESPONDENCE 2020-02-14 Doctor Unassigned, [facility] 05:01:00 [facility] REPORT OF PROCEDURE - 2020-01-26 Provider, Default [facility] ENDOSCOPY SCAN 15:23:18 Scanning [facility] RHYTHM STRIP - SCAN 2020-01-07 Provider, Default [facility] 11:03:25 Scanning [facility] ECG 12-LEAD 2020-01-06 Unknown, [facility] 20[facility]37:46 [facility] ECG 12-LEAD 2020-01-06 Unknown, [facility] Doctor [facility] 20:37:30 [facility] ANTITHROMBIN III 2020-01-06 Oscar, Jasmeet [facility] 12:04:00 [facility] PHOSPHATIDYLSERINE ABS (IGG, 2020-01-06 Oscar, Jasmeet [facility] IGM) 12:04:00 [facility] BETA-2 GLYCOPROTEIN 2020-01-06 Oscar, Jasmeet [facility] ANTIBODIES 12:04:00 [facility] LUPUS ANTICOAGULANT SCREEN 2020-01-06 [facility] WITH REFLEX TO CONFIRMATORY 12:04:00 [facility] [id number] I IGG 2020-01-06 Oscar, Jasmeet [facility] 12:04:00 [facility] [id number] I IGM 2020-01-06 Oscar, Jasmeet [facility] 12:04:00 [facility] [id number] I IGA 2020-01-06 Oscar, Jasmeet [facility] 12:04:00 [facility] 2D ECHO W/ DOPPLER 2020-01-[address] [facility] (CW/PW/COLOR) 09:29:19 [facility] HEMOGLOBIN A1C 2020-01-05 Oscar, Jasmeet [facility] 15:18:00 [facility] LIPID PANEL 2020-01-05 Oscar, Jasmeet [facility] 15:18:00 [facility] TSH/FREE T4 IF INDICATED 2020-01-05 Oscar, Jasmeet [facility] 15:18:00 [facility] VITAMIN B12 AND FOLATE 2020-01-05 Oscar[facility] 15:18:00 [facility] HEPATIC FUNCTION PANEL 2020-01-05 Oscar, [facility]asmeet [facility] 15:18:00 [facility] CTA CAROTID 2020-01-[address] [facility] 13:50:00 [facility] CTA BRAIN 2020-01-[address] [facility] 13:50:00 [facility] MR BRAIN WITH & WITHOUT IV 2020-01-[address] [facility] CONTRAST 18:27:00 [facility] VALPROIC ACID LEVEL, TOTAL 2020-01-04 Jasmeet Moore [facility] 16:35:00 [facility] EEG AWAKE AND DROWSY 2020-01-04 Elier Benjamin, [facility] 15:47:00 [facility] BASIC METABOLIC PANEL (7) 2020-01-04 Brann, Christopher [facility] 06:04:00 [facility] CBC W/PLT COUNT & AUTO 2020-01-04 Brann, Christopher [facility] DIFFERENTIAL 06:04:00 [facility] BLOOD CULTURE 2020-01-03 Shinthia, Nashid [facility] 22:47:00 [facility] BLOOD CULTURE 2020-01-03 Shinthia, Nashid [facility] 22:24:00 [facility] URINALYSIS W/ REFLEX URINE 2020-01-03 Shinthia, Nashid [facility] CULTURE 22:24:00 [facility] ECG 12-LEAD 2020-01-03 Unknown, Hl7 Doctor [facility] 20:43:36 [facility] SARS-COV2/RT-PCR ([facility] & REF 2020-01-03 Shinthia, Edwinid [facility] LABS) 20:02:00 [facility] CBC W/PLT COUNT & AUTO 2020-01-03 Shinthia, Nashid [facility] DIFFERENTIAL 20:02:00 [facility] BASIC METABOLIC PANEL (7) 2020-01-03 [facility]inth[facility], [facility]id [facility] 20:02:00 [facility] PROTHROMBIN TIME/INR 2020-01-03 Shinthia[facility] 20:02:00 [facility] LACTIC ACID, VENOUS 2020-01-03 Shinthia[facility]id [facility] 20:02:00 [facility] XR CHEST 1 VIEW PORTABLE / 2020-01-03 Shinthia, Nashid [facility] BEDSIDE 19:54:00 [facility] REFERRAL- REQUEST/RESPONSE 2019-12-27 Doctor Unassigned, [facility] [place] 05:01:00 [facility] CONTROLLED SUBSTANCE 2019-11-16 Doctor Unassigned, [facility] PRESCRIPTION 05:01:00 [facility] CONSENT FOR CONTRACEPTION 2019-10-05 Doctor Unassigned, [facility] [place] 05:01:00 [facility] MEDICATION CORRESPONDENCE 2019-08-13 Doctor [facility], [facility] [place] 05:01:00 [facility] MEDICATION CORRESPONDENCE 2019-06-21 Doctor Unassigned, [facility] [place] 06:01:00 [facility] CONTROLLED SUBSTANCE 2019-05-17 Doctor Unassigned, [facility] PRESCRIPTION 06:01:00 [facility] CONTROLLED SUBSTANCE 2019-01-08 Doctor Unassigned, [facility] PRESCRIPTION 05:01:00 [facility] CONTROLLED SUBSTANCE 2018-12-14 Doctor Unassigned, [facility] PRESCRIPTION 05:01:00 [facility] CONTROLLED SUBSTANCE 2018-11-27 Doctor Unassigned, [facility] PRESCRIPTION 05:01:00 [facility] Removal - [facility] procedure<sup>3</sup> D&C - Dilatation and [facility] curettage procedure<sup>2</sup> [facility] ermann Colonoscopy [facility] operation<sup>1</sup> [facility] ermann Plan of Care Planned Activity Planned Date Details Comments Source Future Scheduled 2023-01-[address] [facility] Test 00:00:00 (procedure) [code = [facility] [id number]] Future Scheduled 2023-01-[address] [facility] Test 00:00:00 (procedure) [code = [facility] 14143146] Future Scheduled 2023-01-[address] [facility] Test 00:00:00 (procedure) [code = [facility] 86029222] Future Scheduled 2023-01-[address] [facility] Test 00:00:00 (procedure) [code = [facility] 75744609] Future Scheduled 2023-01-[address] [facility] Test 00:00:00 (procedure) [code = [facility] 12066306] Future Scheduled 2023-01-[address] [facility] Test 00:00:00 (procedure) [code = [facility] 47738170] Future Scheduled 2023-01-[address] [facility] Test 00:00:00 (procedure) [code = [facility] 88156912] Future Scheduled 2023-01-[address] [facility] Test 00:00:00 (procedure) [code = [facility] 53225676] Future Scheduled 2023-01-[address] [facility] Test 00:00:00 (procedure) [code = [facility] 20573290] Future Scheduled 2020-12-[address] [facility] Test 00:00:00 (#1) [code = Medical Center INFLUENZA VACCINE (#1)] Future Scheduled 2020-12-[address] [facility] Test 00:00:00 (#1) [code = [facility] INFLUENZA VACCINE (#1)] Future Scheduled 2020-12-[address] [facility] Test 00:00:00 (#1) [code = [facility] INFLUENZA VACCINE (#1)] Future Scheduled 2020-04-[address] [facility] Test 00:00:00 (12+) [code = Medical Center DEPRESSION SCREENING (12+)] Future Scheduled 2020-04-[address] [facility] Test 00:00:00 (12+) [code = Medical Center DEPRESSION SCREENING (12+)] Future Scheduled 2020-04-[address] [facility] Test 00:00:00 (12+) [code = Medical Center DEPRESSION SCREENING (12+)] Future Scheduled 2019-12-[address] [facility] Test 00:00:00 (#1) [code = [facility] INFLUENZA VACCINE (#1)] Future Scheduled 2019-12-[address] [facility] Test 00:00:00 (#1) [code = Medical Center INFLUENZA VACCINE (#1)] Future Scheduled 2019-12-[address] [facility] Test 00:00:00 (#1) [code = Medical Center INFLUENZA VACCINE (#1)] Future Scheduled 2019-12-[address] [facility] Test 00:00:00 (#1) [code = Medical Center INFLUENZA VACCINE (#1)] Future Scheduled 2019-12-[address] [facility] Test 00:00:00 (#1) [code = Medical Center INFLUENZA VACCINE (#1)] Future Scheduled 2019-12-[address] [facility] Test 00:00:00 (#1) [code = Medical Center INFLUENZA VACCINE (#1)] Future Scheduled 2015 SHINGLES VACCINES ([address] [facility] Test 00:00:00 of 2) [code = Medical Center SHINGLES VACCINES (1 of 2)] Future Scheduled 2015 SHINGLES VACCINES ([address] [facility] Test 00:00:00 of 2) [code = Medical Center SHINGLES VACCINES (1 of 2)] Future Scheduled 2015 SHINGLES VACCINES ([address] [facility] Test 00:00:00 of 2) [code = Medical Center SHINGLES VACCINES (1 of 2)] Future Scheduled 1996-03-[address] [facility] 00:00:00 WELLNESS (YEAR 2 or Medical Center FIRST YEAR if no IPPE) [code = MEDICARE ANNUAL WELLNESS (YEAR 2 or FIRST YEAR if no IPPE)] Future Scheduled 1996-03-[address] [facility] 00:00:00 WELLNESS (YEAR 2 or Medical Center FIRST YEAR if no IPPE) [code = MEDICARE ANNUAL WELLNESS (YEAR 2 or FIRST YEAR if no IPPE)] Future Scheduled 1996-03-[address] [facility] 00:00:00 WELLNESS (YEAR 2 or Medical Center FIRST YEAR if no IPPE) [code = MEDICARE ANNUAL WELLNESS (YEAR 2 or FIRST YEAR if no IPPE)] Future Scheduled 1996-03-[address] [facility] 00:00:00 WELLNESS (YEAR 2 or Medical Center FIRST YEAR if no IPPE) [code = MEDICARE ANNUAL WELLNESS (YEAR 2 or FIRST YEAR if no IPPE)] Future Scheduled 1996-03-[address] [facility] 00:00:00 WELLNESS (YEAR 2 or Medical Center FIRST YEAR if no IPPE) [code = MEDICARE ANNUAL WELLNESS (YEAR 2 or FIRST YEAR if no IPPE)] Future Scheduled 1996-03-[address] [facility] 00:00:00 WELLNESS (YEAR 2 or Medical Center FIRST YEAR if no IPPE) [code = MEDICARE ANNUAL WELLNESS (YEAR 2 or FIRST YEAR if no IPPE)] Future Scheduled 1996-03-[address] [facility] 00:00:00 WELLNESS (YEAR 2 or Medical Center FIRST YEAR if no IPPE) [code = MEDICARE ANNUAL WELLNESS (YEAR 2 or FIRST YEAR if no IPPE)] Future Scheduled 1996-03-[address] [facility] 00:00:00 WELLNESS (YEAR 2 or Medical Center FIRST YEAR if no IPPE) [code = MEDICARE ANNUAL WELLNESS (YEAR 2 or FIRST YEAR if no IPPE)] Future Scheduled 1996-03-[address] [facility] 00:00:00 WELLNESS (YEAR 2 or Medical Center FIRST YEAR if no IPPE) [code = MEDICARE ANNUAL WELLNESS (YEAR 2 or FIRST YEAR if no IPPE)] Future Scheduled [address] [facility] 00:00:00 malignant neoplasm of [facility] cervix (procedure) [code = 536386424] Future Scheduled [address] [facility] 00:00:00 [facility] cervix (procedure) [code = 815738936] Future Scheduled [address] [facility] 00:00:00 malignant [facility] cervix (procedure) [code = 816466215] Future Scheduled [address] [facility] 00:00:00 malignant [facility] cervix (procedure) [code = 627376107] Future Scheduled [address] [facility] 00:00:00 malignant [facility] cervix (procedure) [code = 388130829] Future Scheduled [address] [facility] 00:00:00 malignant [facility] cervix (procedure) [code = 339341913] Future Scheduled [address] [facility] 00:00:00 malignant neoplasm [facility] cervix (procedure) [code = 063130497] Future Scheduled [address] [facility] 00:00:00 malignant ne[facility] cervix (procedure) [code = 151909071] Future Scheduled [address] [facility] 00:00:00 malignant neoplasm [facility] cervix (procedure) [code = 474331604] Future Scheduled 1984-01-23 DTAP/TDAP/TD VACCINES [facility] 00:00:00 (1 - Tdap) [code = Medical C enter DTAP/TDAP/TD VACCINES (1 - Tdap)] Future Scheduled 1984-01-23 DTAP/TDAP/TD VACCINES [facility] 00:00:00 (1 - Tdap) [code = Medical C enter DTAP/TDAP/TD VACCINES (1 - Tdap)] Future Scheduled 1984-01-23 DTAP/TDAP/TD VACCINES [facility] 00:00:00 (1 - Tdap) [code = Medical C enter DTAP/TDAP/TD VACCINES (1 - Tdap)] Future Scheduled 1983 HEPATITIS C SCREENING [facility] 00:00:00 [code = HEPATITIS C Medical Center SCREENING] Future Scheduled 1983 HEPATITIS C SCRE[facility]ING [facility] 00:00:00 [code = HEPATITIS C Medical Center SCREENING] Future Scheduled 1983 HEPATITIS C [facility]CRE[facility] 00:00:00 [code = HEPATITIS C Medical Center SCREENING] Future Scheduled 1977 COVID-19 VACCINE (1) [facility] Test 00:00:00 [code = COVID-[address] VACCINE (1)] Future Scheduled 1977 COVID-19 VACCINE (1) [facility] Test 00:00:00 [code = COVID-[address] VACCINE (1)] Future Scheduled 1977 COVID-19 VACCINE (1) [facility] Test 00:00:00 [code = COVID-[address] VACCINE (1)] Future Scheduled [address] [facility] 00:00:00 malignant neoplasm of [facility] breast (procedure) [code = 174173605] Future Scheduled [address] [facility] 00:00:00 malignant neoplasm [facility] colon (procedure) [code = 963927859] Future Scheduled [address] [facility] 00:00:00 malignant neoplasm of [facility] breast (procedure) [code = 754216817] Future Scheduled [address] [facility] 00:00:00 malignant neoplasm of [facility] colon (procedure) [code = 114475435] Future Scheduled [address] [facility] 00:00:00 malignant neoplasm of [facility] breast (procedure) [code = 513298192] Future Scheduled [address] [facility] 00:00:00 malignant neoplasm of [facility] colon (procedure) [code = 917065069] Future Scheduled [address] [facility] 00:00:00 malignant neoplasm of [facility] breast (procedure) [code = 657542281] Future Scheduled [address] [facility] 00:00:00 malignant neoplasm of [facility] colon (procedure) [code = 776025135] Future Scheduled [address] [facility] 00:00:00 malignant neoplasm of [facility] breast (procedure) [code = 174969712] Future Scheduled [address] [facility] 00:00:00 malignant neoplasm of [facility] colon (procedure) [code = 339669275] Future Scheduled [address] [facility] Test 00:00:00 malignant neoplasm of [facility] breast (procedure) [code = 522593330] Future Scheduled [address] [facility] 00:00:00 malignant neoplasm of [facility] colon (procedure) [code = 647326098] Future Scheduled [address] [facility] 00:00:00 malignant neoplasm of [facility] breast (procedure) [code = 444044432] Future Scheduled [address] [facility] 00:00:00 malignant neoplasm of [facility] colon (procedure) [code = 897902482] Future Scheduled [address] [facility] 00:00:00 malignant neoplasm of [facility] breast (procedure) [code = 362998134] Future Scheduled [address] [facility] Test 00:00:00 malignant neoplasm of [facility] colon (procedure) [code = 178072139] Future Scheduled [address] [facility] Test 00:00:00 malignant neoplasm of [facility] breast (procedure) [code = 346566072] Future Scheduled [address] [facility] 00:00:00 malignant neoplasm of [facility] colon (procedure) [code = 708429501] Encounters Start End Encounter Admission Attending Care Care Encounter Source Date/Time Date/Time Type Type Clinicians Facility Department ID 2021-09-08 [address], [facility] [id number] [place] 02:35:30 JASON [id number] [facility] 2021-09-07 Outpatient [facility] [id number] [place] 06:34:18 [id number] [facility] 2021-09-05 Outpatient FREET, [facility] [id number] [place] 12:19:27 JASON Morales0511 [facility] 2021-09-04 Outpatient FREET, [facility] [id number] [place] 08:08:41 JASON [id number] [facility] 2021-08-30 Outpatient FREET, [place] [id number] [place] 02:36:28 JASON [id number] [facility] 2021-08-29 Outpatient FRE[address], [facility] [id number] [place] 08:40:22 JASON Morales0504 [facility] 2021-08-28 Outpatient FRE[address], [facility] [id number] [place] 16:51:16 JASON [id number] [facility] 2021-08-27 Outpatient FREET, [facility] [id number] [place] 13:45:24 JASON [id number] [facility] 2021-08-22 Outpatient FRE[address], [facility] [id number] [place] 10:42:12 JASON [id number] [facility] 2021-08-16 Outpatient FRE[address], [facility] [id number] [place] 10:40:43 JASON [id number] [facility] 2021-08-10 Outpatient [facility] [id number] [place] 07:16:36 [id number] [facility] 2021-08-08 Out[address], [facility] [id number] [place] 12:35:27 JASON [id number] [facility] 2021-08-07 Out[address] F[address], [facility] [id number] [place] 09:14:23 JASON [id number] [facility] 2021-08-06 Outpatient FREET, [facility] [id number] [place] 09:21:38 JASON Morales0411 [facility] 2021-07-25 Outpatient FRE[address], [facility] [id number] [place] 09:48:15 JASON [id number] [facility] 2021-07-21 Outpatient [facility] [id number] [place] 15:29:27 [id number] [facility] 2021-06-20 [address], [facility] [id number] [place] [facility], [facility] [id number] [place] [facility]:04[facility], [facility] [id number] [place] [facility]:02[facility] 2021-04-25 Outpatient [facility] [id number] [place] 10:41:42 [facility] 2021-03-26 [address], [facility] [id number] [place] [facility]:03[facility], [facility] [id number] [place] [facility]:03[facility] 2021-[facility], [facility] [id number] [place] 14:25[facility] 2021-02[facility], [facility] [id number] [place] [facility]:02[facility] 2020-09-27 Outpatient [facility] [id number] [place] 14:21:57 [facility] 2020-09-18 Outpatient DANVIGNESHBERONICAAUM, [facility] [id number] [place] 01:03:56 [facility] 2020-09-02 Outpatient [facility] [id number] [place] 03:08:43 [facility] 2018-08-27 [id number] [facility] H 08:45:00 2021-09-06 2021-09-06 Leena Watts [facility] 1.2.840.114 [id number] Univers 00:00:00 00:00:00 [facility] 350.1.13.10 ity of [place] 4.2.7.2.686 Teto as PETER?BLEA [phone] [address] MEDICAL OFFICE BUILDING 2021-09-05 2021-09-05 Office Freet, [facility] 6410 1.2.840.114 [id number] [place] 13:00:00 13:24:22 Visit Jason WESTON 350.1.13.58 [facility] 9.2.7.2.686 [id number] 2021-08-31 2021-08-31 Leena Watts [facility] 1.2.840.114 [id number] [facility] 00:00:00 00:00:00 [facility] 350.1.13.10 itIlya 4.2.7.2.686 Teto as PETER?BLEA [phone] Ar vincent [address] OFFICE [facility] 2021-08-29 2021-08-29 Office AMELIA Smith 6410 1.2.840.114 [id number] [place] 13:00:00 14:11:14 Visit Jason OLIVER 350.1.13.58 Health 9.2.7.2.686 [id number] 2021-08-23 2021-08-23 Outpatient SARAH [facility] [id number] [facility] 09:31:00 23:59:00 JASON 2021-08-22 2021-08-22 Office AMELIA Smith 6410 1.2.840.114 [id number] [place] 11:00:00 11:47:47 Visit Jason OLIVER 350.1.13.58 Health 9.2.7.2.686 [id number] 5 2021-08-16 2021-08-16 Telephone HiTarsha 6410 1.2.840. 114 [id number] [place] 00:00:00 00:00:[address] 350.1.13.58 Health 9.2.7.2.686 [id number] 5 2021-08-09 2021-08-09 Telephone HiTarsha UTP 6410 1.2.840. 114 [id number] [place] 00:00:00 00:00:[address] 350.1.13.58 Health 9.2.7.2.686 [id number] 5 2021-08-08 2021-08-08 Office Sarah UTP 6410 1.2.840.114 [id number] [place] 13:30:00 15:11:[address] 350.1.13.58 Health 9.2.7.2.686 [id number] 5 2021-08-03 2021-08-04 Outpatient U ELIJAH STEVE [facility] [id number] [facility] 18:22:00 16:40:00 2021-07-26 2021-07-26 Leena Watts [facility] 1.2.840.114 [id number] Univers 00:00:00 00:00:00 Sergey REYEZ 350.1.13.10 it[place] of [id number] [place] [id number] [facility] 2021-07-25 2021-07-25 Office AMELIA Smith 6410 1.2.840.114 [id number] [place] 10:00:00 10:40:[address] 350.1.13.58 Health 9.2.7.2.686 [id number] 5 2021-07-16 2021-07-16 Orders Doctor SIDNEY 1.2.840.114 [id number] [facility] 00:00:00 00:00:00 Only Unassigned, REAL 350.1.13.10 ity of [facility] 4.2.7.2.686 Teto as [phone] [address] 2021-07-13 2021-07-13 Telephone Lashell Dangelo UTP 6410 1.2.840. 114 [id number] [place] 00:00:00 00:00:[address] 350.1.13.58 Health 9.2.7.2.686 [id number] 5 2021-06-27 2021-06-27 Office AMELIA Smith 6410 1.2.840.114 [id number] [place] 11:45:00 12:53:[address] 350.1.13.58 Health 9.2.7.2.686 [id number] 5 2021-06-04 2021-06-04 Orders Doctor SIDNEY 1.2.840.114 [id number] Univers 00:00:00 00:00:00 Only Unassigned, REAL 350.1.13.10 ity of [facility] 4.2.7.2.686 Teto as [id number] [address] 2021-05-11 2021-05-11 Telephone Tarsha Do UTP 6410 1.2.840. 114 [id number] [place] 00:00:00 00:00:[address] 350.1.13.58 Health 9.2.7.2.686 [id number] 5 2021-05-07 2021-05-07 Transition JUSTIN Vasquez 1.2.840.114 [id number] Univers 00:00:00 00:00:00 of Care Carolynn BERNAL 350.1.13.10 [place] [id number] [place] [address] Branch 2021-04-29 2021-05-04 Inpatient X BRYAN [facility] ANAI [id number] Univers 10:25:00 13:16:00 SETH ity of [facility] 2021-04-29 2021-05-04 [facility] [place] [facility] 1.2.840.114 [id number] Univers 10:25:00 13:16:00 Encounter Ezzo, Ali HEALTH 350.1.13.10 ity of [place], Seth CLEAR 4.2.7.2.686 [facility] [id number] [facility] [address] ([facility]) 2021-04-25 2021-04-25 Office AMELIA Smith 6410 1.2.840.114 [id number] [place] 10:30:00 12:57:[address] 350.1.13.58 Health 9.2.7.2.686 [id number] 5 2021-03-17 2021-03-17 Emergency [facility] [id number] Memoria 09:34:51 15:39:00 kevin Gordillo 07 [facility] 2021-03-17 2021-03-17 Emergency E LUCIEN JIM MED [id number] BL 03:34:00 09:39:00 SAB 2021-02-28 2021-03-15 Inpatient [facility] [id number] Memoria 22:01:00 20:20:00 kevin Duy [address] [place] [address] 2021-02-28 2021-03-15 Inpatient MARINA [facility] [id number] [facility] 17:01:00 14:20:00 ISELA 2021-02-28 2021-02-28 Emergency [facility] [id number] [facility] 20:18:36 20:18:[address] 2021-02-26 2021-02-26 Telephone Tarsha Do UTP 6410 1.2.840. 114 [id number] [place] 00:00:00 00:00:[address] 350.1.13.58 Health 9.2.7.2.686 [id number] 5 2021-02-26 2021-02-26 Telephone Tarsha Do UTP 6410 1.2.840. 114 [id number] [place] 00:00:00 00:00:[address] 350.1.13.58 Health 9.2.7.2.686 [id number] 5 2021-02-19 2021-02-19 Telephone Tarsha Do UTP 6410 1.2.840. 114 [id number] [place] 00:00:00 00:00:[address] 350.1.13.58 Health 9.2.7.2.686 [id number] 5 2021-02-19 2021-02-19 Telephone Tarsha Do UTP 6410 1.2.840. 114 [id number] [place] 00:00:00 00:00:[address] 350.1.13.58 Health 9.2.7.2.686 [id number] 5 2021-02-19 2021-02-19 Orders Tarsha Do UTP 6410 1.2.840.11 4 [id number] [place] 00:00:00 00:00:[address] 350.1.13.58 Health 9.2.7.2.686 [id number] 5 2021-02-14 2021-02-14 Office AMELIA Smith 6410 1.2.840.114 [id number] [place] 13:20:56 13:55:[address] 350.1.13.58 Health 9.2.7.2.686 [id number] 5 2021-02-08 2021-02-08 Orders Tarsha Do UTP 6410 1.2.840.11 4 [id number] [place] 00:00:00 00:00:[address] 350.1.13.58 Health 9.2.7.2.686 [id number] 5 2021-01-29 2021-01-29 Telephone Johanny Gallardo UTP 6410 1.2.840 .114 [id number] [place] 00:00:00 00:00:[address] 350.1.13.58 Health 9.2.7.2.686 [id number] 1 2020-12-15 2021-01-24 Inpatient [facility] [id number] [facility] 22:47:00 02:20:[address] 2020-12-15 2021-01-23 Inpatient U GLORIA, [facility] [id number] [facility] 17:47:00 21:20:00 DICK 2021-01-23 2021-01-23 EXT [facility] IP Gloria, EXT MSRDP 1.2.840.114 1 [id number] [place] 00:00:00 00:00:00 [facility] LOCATION 350.1.13.58 H ealth 9.2.7.2.686 [id number] 0 2021 2021 EXT [facility] IP System, EXT MSRDP 1.2.840.114 1 [id number] [place] 00:00:00 00:00:00 Provider LOCATION 350.1.13.58 Health Not In 9.2.7.2.686 [id number] 0 2021 2021 EXT [facility] IP System, EXT MSRDP 1.2.840.114 1 [id number] [place] 00:00:00 00:00:00 Provider LOCATION 350.1.13.58 Health Not In 9.2.7.2.686 [id number] 0 2021-01-15 2021-01-15 EXT [facility] OP FREET, EXT MSRDP 1.2.840.114 1 [id number] [place] 13:19:44 15:19:44 JASON LOCATION 350.1.13.58 H ealth 9.2.7.2.686 [id number] 1 2021-01-04 2021-01-04 EXT M[facility] OP FREET, EXT MSRDP 1.2.840.114 1 [id number] [place] 12:00:21 12:30:21 JASON LOCATION 350.1.13.58 H ealth 9.2.7.2.686 [id number] 1 2021-01-04 2021-01-04 EXT [facility] IP Krupa, EXT MSRDP 1.2.840.114 1 [id number] [place] 00:00:00 00:00:00 Velasquez LOCATION 350.1.13.58 H ealth 9.2.7.2.686 [id number] 0 2021-01-03 2021-01-03 EXT [facility] OP FREET, EXT MSRDP 1.2.840.114 1 [id number] [place] 08:03:05 16:33:05 JASON LOCATION 350.1.13.58 H ealth 9.2.7.2.686 [id number] 1 2020-12-25 2020-12-25 EXT [facility] IP Freet, EXT MSRDP 1.2.840.114 1 [id number] [place] 00:00:00 00:00:00 Jason LOCATION 350.1.13.58 H ealth 9.2.7.2.686 [id number] 0 2020-12-22 2020-12-22 EXT [facility], EXT MSRDP 1.2.840.114 1 [id number] [place] 08:13:13 16:43:13 JASON LOCATION 350.1.13.58 H ealth 9.2.7.2.686 [id number] 1 2020-12-19 2020-12-19 EXT [facility], EXT MSRDP 1.2.840.114 1 [id number] [place] 07:45:58 10:45:58 JASON LOCATION 350.1.13.58 H ealth 9.2.7.2.686 [id number] 1 2020-12-112020-12-12 [facility] 298 [id number] Memoria 18:40:00 04:59:59 r Care 04 l Duchesne Voltaire 2020-12-06 2020-12-06 Office AMELIA Capellan 6410 1.2.840.114 [id number] [place] 13:32:21 15:57:[address] 350.1.13.58 Health 9.2.7.2.686 [id number] 5 2020-12-06 2020-12-06 Orders Tarsha Do UTP 6410 1.2.840.11 4 [id number] [place] 00:00:00 00:00:[address] 350.1.13.58 Health 9.2.7.2.686 [id number] 2020-10-23 2020-10-23 [facility] 1.2.840.114 [id number] Univers 00:00:00 00:00:00 Sergey Reyez 350.1.13.10 ity [facility] [place] [phone] Ar dical [address] 2020-10-23 2020-10-23 [facility] 1.2.840.114 [id number] 262 00:00:00 00:00:00 Sergey Reyez 350.1.13.10 [place] 4.2.7.2.686 Professio [phone] [address] 2020-09-15 2020-09-22 Inpatient nullFlavo [facility] [id number] Memoria 20:53:50 22:50:00 r Duy 04 l [facility] 2020-09-15 2020-09-22 Inpatient Esau HSIEH, [facility] MED [id number] [facility] 23:47:00 17:50:00 GERALDO 2020-09-15 2020-09-15 [facility] Killian, EXT MSRDP 1.2.840.114 [id number] [place] 00:00:00 00:00:00 Cirilo I LOCATION 350.1.13.58 [place] 9.2.7.2.686 [phone] 0 2020-09-13 2020-09-13 Outpatient KILLIAN, [facility] [id number] [facility] 10:30:00 23:59:00 CIRILO 2020-09-04 2020-09-04 [facility] 1.2.840.114 [id number] [facility] 00:00:00 00:00:00 Sergey Reyez 350.1.13.10 ity [facility] [place].2.[place] [phone] Ar dic[address] 2020-09-04 2020-09-04 Telephone [facility] 1.2.840.114 [id number] 00:00:00 00:00:00 Sergey Reyez 350.1.13.10 [place] 4.2.7.2.686 Professio [phone] [address] 2020-08-25 2020-08-28 Inpatient [facility] [id number] Memoria 21:14:08 23:42:[address] 2020-08-25 2020-08-28 Inpatient E LILY, [facility] [id number] [facility] 19:56:00 18:42:00 KARON 2020-08-15 2020-08-24 Inpatient [facility] 30439 [id number] Memoria 19:36:56 00:00:[address] 2020-08-16 2020-08-23 Inpatient E LILY, [facility] [id number] [facility] 04:12:00 19:00:00 KARON 2020-08-15 2020-08-15 Refill Stefanie, [facility] 1.2.840.114 [id number] [facility] 00:00:00 00:00:00 Sergey Reyez 350.1.13.10 ity [facility] [place].2.[place] [phone] [address] 2020-08-15 2020-08-15 Refill Stefanie, [facility] 1.2.840.114 [id number] 00:00:00 00:00:00 Sergey Gene Gordon 350.1.13.10 [place] 4.2.7.2.686 Professio [phone] [address] 2020-07-21 2020-07-21 Refill Ross Coronado [facility] 1.2.840.114 [id number] Univers 00:00:00 00:00:00 S Gordon 350.1.13.10 i ty of [place].2.[place] [phone] [address] 2020-07-21 2020-07-21 Refill Ross Coronado [facility] 1.2.840.114 [id number] 00:00:00 00:00:00 S Gordon 350.1.13.10 [place] 4.2.7.2.686 Professio [phone] [address] 2020-07-18 2020-07-18 [facility] 1.2.840.114 [id number] Univers 00:00:00 00:00:00 Outreach Tommy PRIMARY 350.1.13.10 i ty of [facility] [place]2.7.2.[place] [phone] [address] 2020-07-18 2020-07-18 Patient Justin [facility] 1.2.840.114 [id number] 93 00:00:00 00:00:00 Outreach Tommy PRIMARY 350.1.13.10 [place] [facility] 4.2.7.2.686 PAVILLION [phone] [facility] 2020-07-03 2020-07-03 [facility] 1.2.840.114 [id number] Univers 00:00:00 00:00:00 Sergey Reyez 350.1.13.10 ity of [place] 4[place].2.[place] [phone] [address] 2020-07-03 2020-07-03 [facility] 1.2.840.114 [id number] 00:00:00 00:00:00 Sergey Garyton 350.1.13.10 [place] 4.2.7.2.686 Professio [phone] [address] 2020-06-09 2020-06-09 Orders Doctor SIDNEY 1.2.840.114 [id number] Univers 00:00:00 00:00:00 Only Unassigned, REAL 350.1.13.10 ity of [place] [facility] 4.2.7.2.686 Teto as [phone] [address] 2020-06-08 2020-06-08 [facility] 1.2.840.114 [id number] Univers 00:00:00 00:00:00 Sergey Reyez 350.1.13.10 ity of [place] 4[place]7.2.[place] [phone] [address] 2020-06-08 2020-06-08 [facility] 1.2.840.114 [id number] 459 00:00:00 00:00:00 Sergey Reyez 350.1.13.10 [place] 4.2.7.2.686 Professio [phone] [address] 2020-06-06 2020-06-06 [facility] 1.2.840.114 [id number] Univers 00:00:00 00:00:00 Sergey Reyez 350.1.13.10 ity of [place].2.[place] [phone] [address] 2020-05-15 2020-05-15 Orders Doctor LITTLE 1.2.840.114 [id number] Univers 00:00:00 00:00:00 Only Unassigned, REAL 350.1.13.10 ity of [place] [facility] 4.2.7.2.686 Teto as [phone] [address] 2020-04-04 2020-04-04 Orders Doctor LITTLE 1.2.840.114 [id number] Univers 00:00:00 00:00:00 Only Unassigned, REAL 350.1.13.10 ity of [place] [facility] 4.2.7.2.686 Teto as [phone] [address] 2020-04-03 2020-04-03 [facility] 1.2.840.114 [id number] Univers 00:00:00 00:00:00 Sergey Reyez 350.1.13.10 ity of [place] 4[place].2.[place] [phone] [address] 2020-03-14 2020-03-14 [facility] 1.2.840.114 [id number] Univers 00:00:00 00:00:00 Sergey Reyez 350.1.13.10 ity of [place] 4[place].2.[place] [phone] [address] 2020-02-14 2020-02-14 [facility] 1.2.840.114 [id number] Univers 00:00:00 00:00:00 Sergey Reyez 350.1.13.10 ity of [place] 4.2.7.2.[place] [phone] [address] 2020-02-14 2020-02-14 Orders Doctor SIDNEY 1.2.840.114 [id number] Univers 00:00:00 00:00:00 Only Unassigned, REAL 350.1.13.10 ity of [place] [facility] 4.2.7.2.686 Teto as [phone] [address] 2020-02-14 2020-02-14 [facility] 1.2.840.114 [id number] Univers 00:00:00 00:00:00 Sergey Reyez 350.1.13.10 ity of [place].2.[place] [phone] [address] 2020-01-24 2020-01-24 [facility] 1.2.840.114 [id number] Univers 15:40:05 16:14:13 Visit Sergey Reyez 350.1.13.10 ity of [place] 4[place]2.7.2.[place] [phone] Ar dical nal 2 [facility] 2020-01-24 2020-01-24 Outpatient SERGEY [facility] [id number] Univers 15:40:00 15:40:00 SERGEY WATTS [id number] ity [facility] 2020-01-24 2020-01-24 Outpatient Kevin WATTS [facility] [id number] Univers 15:40:00 15:40:00 [facility] 2020-01-18 Outpatient R STEFANIE, [facility] [id number] Univers 15:40:00 15:40:00 SER[facility]Y WATTS [id number] [facility] 2020-01-12 2020-01-12 Telephone Stefanie, [facility] 1.2.840.114 [id number] Univers 00:00:00 00:00:00 Sergey Reyez 350.1.13.10 [facility] [place].2.7.2.[place] [phone] Ar dical nal [address] [place] [address] 2020-01-07 2020-01-07 Outpatient STEFANIE, [facility] [id number] Univers 15:20:00 15:20:00 SER[facility]Y WATTS [id number] [facility] 2020-01-07 2020-01-07 Outpatient SERGEY [facility] [id number] Univers 15:20:00 15:20:00 [facility] 2020-01-03 2020-01-06 Hospital ER Maureen Steinberg [facility] [id number] [facility] [address] 19:07:01 12:55:00 Encounter Alexandra Stevens [facility] Br[facility] 2020-01-03 2020-01-03 Emergency ER [facility] Emergency [id number] [facility] 18:57:00 18:57:00 2020-01-03 2020-01-03 Orders [facility] [id number] 00:00:00 00:00:00 Only [facility] 2020-01-03 2020-01-03 Travel [facility] [id number] [facility] 00:00:00 00:00:00 [facility] 2019-12-27 2019-12-27 Outpatient R [facility] [id number] Univers 10:00:00 10:00:00 AWAIS, [id number] ity of [facility] 2019-12-27 2019-12-27 Outpatient R [facility] [id number] Univers 10:00:00 10:00:00 AWAIS, ity of [facility] 2019-12-27 2019-12-27 Orders Doctor SIDNEY 1.2.840.114 [id number] Univers 00:00:00 00:00:00 Only Unassigned, REAL 350.1.13.10 ity of [place] [facility] 4.2.7.2.686 Teto as [phone] [address] 2019-12-27 2019-12-27 Refill Stefanie, [facility] 1.2.840.114 [id number] Univers 00:00:00 00:00:00 Sergey Reyez 350.1.13.10 ity of [place].2.[place] [phone] Ar dic[address] 2019-11-30 2019-11-30 Office [facility] 1.2.840.114 [id number] Univers 14:14:45 14:49:08 Visit Sergey Reyez 350.1.13.10 ity of [place] 4[place]2.7.2.[place] [phone] Ar dicct nal [address] [place] [address] 2019-11-30 2019-11-30 Outpatient SERGEY [facility] [id number] Univers 14:20:00 14:20:00 SERGEY WATTS [facility] 2019-11-30 2019-11-30 Outpatient R SERGEY WATTS [facility] [id number] Univers 14:20:00 14:20:00 SERGEY WATTS [id number] ity [facility] 2019-11-30 2019-11-30 Telephone Stefanie, [facility] 1.2.840.114 [id number] Univers 00:00:00 00:00:00 Sergey Reyez 350.1.13.10 ity of [place]7.2.[place] [phone] [address] 2019-11-24 2019-11-24 [facility] 1.2.840.114 [id number] Univers 00:00:00 00:00:00 Sergey Reyez 350.1.13.10 ity of [place] 4[place].7.2.[place] [phone] [address] 2019-11-16 2019-11-16 Orders Doctor LITTLE 1.2.840.114 [id number] Univers 00:00:00 00:00:00 Only Unassigned, REAL 350.1.13.10 ity of [place] [facility] 4.2.7.2.686 Teto as [phone] [address] 2019-10-05 2019-10-05 [facility] 1.2.840.114 [id number] Univers 00:00:00 00:00:00 Sergey Reyez 350.1.13.10 ity of [place] 4[place].7.2.[place] [phone] [address] 2019-10-05 2019-10-05 Orders Doctor LITTLE 1.2.840.114 [id number] Univers 00:00:00 00:00:00 Only Unassigned, REAL 350.1.13.10 ity of [place] [facility] 4.2.7.2.686 Teto as [phone] [address] 2019-10-04 2019-10-04 [facility] 1.2.840.114 [id number] Univers 00:00:00 00:00:00 Sergey Reyez 350.1.13.10 ity of [place].7.2.[place] [phone] [address] 2019-08-13 2019-08-13 Orders Doctor LITTLE 1.2.840.114 [id number] Univers 00:00:00 00:00:00 Only Unassigned, REAL 350.1.13.10 ity of [place] [facility] 4.2.7.2.686 Teto as [phone] [address] 2019-08-11 2019-08-11 Telephone [facility] 1.2.840.114 [id number] [facility] 00:00:00 00:00:00 Sergey Mendoza Denise 350.1.13.10 ity of [place].7.2.[place] [phone] Ar dicct nal 092 [facility] 2019-07-19 2019-07-19 Refill [facility] 1.2.840.114 [id number] [facility] 00:00:00 00:00:00 Dneise beatty 350.1.13.10 i [place] 4.2.7.2.686 [place] [phone] Ar dicct nal 092 [facility] 2019-07-09 2019-07-09 Telephone [facility] 1.2.840.114 [id number] [facility] 00:00:00 00:00:00 Sergey Mendoza Denise 350.1.13.10 ity of [place] 4[place]2.7.2.[place] [phone] Ar dicct nal 092 [facility] 2019-06-28 2019-06-28 Incendiaries Supervisor 2, Adc Lab [facility] 1.2.840.114 [id number] Univers 11:07:24 11:22:24 Visit Hilda Delgado 350. 1.13.10 ity of [place] 4.2.7.2.[place] [phone] Ar dical nal 353 [facility] 2019-06-28 2019-06-28 Office [facility] 1.2.840.114 [id number] Univers 10:00:35 11:01:18 Visit Denise beatty 350.1.13.10 i ty of [place] 4.2.7.2.[place] [phone] Ar dical nal 092 [facility] 2019-06-28 2019-06-28 Outpatient R [facility] [id number] Univers 10:00:00 10:00:00 AWAIS [id number] ity of [facility] 2019-06-28 2019-06-28 Outpatient R [facility] [id number] Univers 10:00:00 10:00:00 AWAIS, ity of [facility] 2019-06-21 2019-06-21 Orders Doctor SIDNEY 1.2.840.114 [id number] Univers 00:00:00 00:00:00 Only Unassigned, REAL 350.1.13.10 ity of [place] [facility] 4.2.7.2.686 Teto as [phone] [address] 2019-06-18 2019-06-18 Telephone [facility] 1.2.840.114 [id number] Univers 00:00:00 00:00:00 Sergey Reyez 350.1.13.10 ity of [place] 4[place]2.7.2.[place] [phone] Ar dical nal [address] [place] [address] 2019-06-18 2019-06-18 Telephone [facility] 1.2.840.114 [id number] Univers 00:00:00 00:00:00 Sergey Reyez 350.1.13.10 ity of [place] 4[place]2.7.2.[place] [phone] Ar dical nal [address] [place] [address] 2019-05-18 2019-05-18 Refill [facility] 1.2.840.114 [id number] Univers 00:00:00 00:00:00 Sergey Reyez 350.1.13.10 ity of [place] 4[place].7.2.[place] [phone] Ar dical nal [address] [place] [address] 2019-05-17 2019-05-17 Orders Doctor LITTLE 1.2.840.114 [id number] Univers 00:00:00 00:00:00 Only Unassigned, REAL 350.1.13.10 ity of [place] [facility] 4.2.7.2.686 Teto as [phone] [address] 2019-01-08 2019-01-08 Orders Doctor SIDNEY 1.2.840.114 [id number] Univers 00:00:00 00:00:00 Only Unassigned, REAL 350.1.13.10 ity of [place] [facility] 4.2.7.2.686 Teto as [phone] [address] 2019-01-06 2019-01-06 Telephone [facility] 1.2.840.114 [id number] Univers 00:00:00 00:00:00 Sergey Reyez 350.1.13.10 ity of [place] 4[place].2.[place] [phone] [address] 2018-12-30 2018-12-31 Outpatient nullFlavo [id number] Memoria 20:06:00 04:59:00 r Radiation 41 l Therapy Duy ([facility]) 2018-12-30 2018-12-30 Outpatient [facility] [id number] [facility] 15:06:00 15:06:00 2018-12-29 2018-12-30 Outpt Diag nullFlavo [facility] [id number] Memoria 17:52:00 04:59:00 Services r Outpatient 01 l Socrates Conway 2018-12-14 2018-12-14 Refill [facility] 1.2.840.114 [id number] Univers 00:00:00 00:00:00 Sergey Reyez 350.1.13.10 ity of [place] 4[place].2.[place] [phone] [address] 2018-12-14 2018-12-14 Orders Doctor LITTLE 1.2.840.114 [id number] Univers 00:00:00 00:00:00 Only Unassigned, REAL 350.1.13.10 ity of [place] [facility] 4.2.7.2.686 Teto as [phone] [address] 2018-11-27 2018-11-27 Telephone [facility] 1.2.840.114 [id number] Univers 00:00:00 00:00:00 Sergey Reyez 350.1.13.10 ity of [place] 4[place].7.2.[place] [phone] Ar dical [facility] 2018-11-27 2018-11-27 Orders Doctor SIDNEY 1.2.840.114 [id number] Univers 00:00:00 00:00:00 Only Unassigned, REAL 350.1.13.10 [facility] 4.2.7.2.686 Teto as [phone] [address] 2018-09-08 2018-09-09 Outpatient nullFlavo MNA [id number] Memoria 18:30:00 04:59:59 r Neurosurger 03 l y [facility] 2018-09-01 2018-09-03 Phone nullFlavo MNA [id number] Memoria 14:00:12 04:59:59 Message r Neurosurger 06 [facility] 2018-09-01 2018-09-03 Phone nullFlavo MNA [id number] Memoria 13:54:03 04:59:59 Message r Neurosurger 05 [facility] 2018-08-27 2018-08-29 Inpatient nullFlavo [facility] [id number] Memoria 13:45:00 16:00:00 r Duy [address] [place] [address] 2018-08-27 2018-08-28 Outpatient nullFlavo MNA [id number] Memoria 16:00:00 04:59:59 r Neurosurger 01 [facility] 2018-08-25 2018-08-26 Outpatient nullFlavo MNA [id number] Memoria 18:30:00 04:59:59 r Neurosurger 02 [facility] 2018-08-24 2018-08-25 Outpt Diag nullFlavo [facility] [id number] Memoria 18:38:00 04:59:00 Services r Outpatient 00 l Socrates Conway 2018-08-21 2018-08-23 Phone nullFlavo MNA [id number] Memoria 20:43:00 04:59:59 Message r Neurosurger 04 l y [facility] 2018-08-13 2018-08-15 Phone nullFlavo MNA [id number] Memoria 20:46:00 04:59:59 Message r Neurosurger 03 l y [facility] 2018-08-11 2018-08-13 Phone nullFlavo MNA [id number] Memoria 15:16:00 04:59:59 Message r Neurosurger 02 l y [facility] 2018-07-22 2018-07-24 Phone nullFlavo MNA [id number] Memoria 21:09:00 04:59:59 Message r Neurosurger 01 l y [facility] 2018-07-21 2018-07-22 Outpatient nullFlavo MNA [id number] Memoria 21:00:00 04:59:59 r Neurosurger 00 l y [facility] 2018-07-20 2018-07-22 Phone nullFlavo MNA [id number] Memoria 15:38:00 04:59:59 Message r Neurosurger 00 l y [facility] Results Test Description Test Time Test Comments Results Result Comments Source BASIC METABOLIC PANEL (NA, K, CL, CO2, GLUCOSE, BUN, 2021-04 10:04:33 CREATININE, CA) Test Item Value Reference Range Interpretation Comme nts NA (test code = 9896367856) 141 mmol/L 135-145 K (test code = 9627026523) 4.5 mmol/L 3.5-5.0 CL (test code = 4731916317) 107 mmol/L 98-108 CO2 TOTAL (test code = 5672784323) 27 mmol/L 23-31 AGAP (test code = 8802816221) 2-16 BUN (test code = 8621970402) 31 mg/dL 7-23 H GLUCOSE (test code = 7286598773) 124 mg/dL 70-110 H CREATININE (test code = 0.33 mg/dL 0.50-1.04 L 7532865890) CALCIUM (test code = 7538346724) 9.5 mg/dL 8.6-10.6 eGFR (test code = 4862562744) mL/min/1.73m2 AYESHA (test code = AYESHA) Association of Glomerular Filtration Rate (GFR) and Staging of Kidney Disease* + +-------- + ------+| GFR (mL/min/1.73 m2) ?| With Kidney Damage ?| ?Without Kidney Damage+ +-- + +| ?>90 ?| ?Stage one ?| ? Normal ?+ +------- + -------+| ?60-89 ?| ?Stage two ?| ? Decreased GFR ? + +-------- + ------+| ?30-59 ?| ?Stage three ?| ? Stage three ? + +-------- + ------+| ?15-29 ?| ?Stage four ? | ? Stage four ?+ +------- + -------+| ?<15 (or dialysis) ? ?| ?Stage five ? | ? Stage five ?+ +------- + -------+ *Each stage assumes the associated GFR level has been in effect for at least three months. ?Stages 1 to 5, with or without kidney disease, indicate chronic kidney disease. Notes: Determination of stages one and two (with eGFR >59mL/min/1.73 m2) requires estimation of kidney damage for at least three months as defined by structural or functional abnormalities of the kidney, manifested by either:Pathological abnormalities or Markers of kidney damage (including abnormalities in the composition of the blood or urine or abnormalities in imaging tests). Lab Interpretation (test code = Abnormal 74098-4) [facility]04[facility]33 Test Item Value Reference Range Interpretation Comments MAGNESIUM (test code = 7798041610) 2.1 mg/dL 1.7-2.4 Lab Interpretation (test code = Normal 36579-5) [facility] WITH [id number] 09:54:47 Test Item Value Reference Range Interpretation Comments WBC (test code = See_Comment [Automated 6742-2) message] The sy stem which generated this result transmitted reference range : 4.30 - 11.10 10*3/?L. The reference range was not used to interpret this result as normal/abnormal . RBC (test code = See_Comment [Automated 451-4) message] The sy stem which generated this result transmitted reference range : 3.93 - 5.25 10*6/?L. The reference range was not used to interpret this result as normal/abnormal . HGB (test code = 10.8 g/dL 11.6-15.0 L 718-7) HCT (test code = 35.4 % 35.7-45.2 L 4544-3) MCV (test code = 86.1 fL 80.6-95.5 787-2) MCH (test code = 26.3 pg 25.9-32.8 785-6) MCHC (test code = 30.5 g/dL 31.6-35.1 L 786-4) RDW-SD (test code = 55.8 fL 39.0-49.9 H 62961-8) RDW-CV (test code = 17.4 % 12.0-15.5 H 788-0) PLT (test code = See_Comment [Automated 777-3) message] The sy stem which generated this result transmitted reference range : 166 - 358 10*3/ ?L. The reference r abdifatah was not used to interpret this result as normal/abnormal . MPV (test code = 10.4 fL 9.5-12.9 87497-3) NRBC/100 WBC (test See_Comment [Automat ed code = 3513005694) message] The system which generated this result transmitted reference range : 0.0 - 10.0 /100 WBCs. The refer ence range was not u sed to interpret th is result as normal/abnormal . NRBC x10^3 (test code <0.01 See_Comment [Auto mated = 1223861448) message] The s ystem which generated this result transmitted reference range : 10*3/?L. The reference range was not used to interpret this result as normal/abnormal . GRAN MAT (NEUT) % 81.9 % (test code = 770-8) IMM GRAN % (test code 0.30 % = 0964660673) LYMPH % (test code = 12.4 % 736-9) MONO % (test code = 5.4 % 5905-5) EOS % (test code = 0.0 % 713-8) BASO % (test code = 0.0 % 706-2) GRAN MAT x10^3(ANC) 5.64 10*3/uL 1.88-7.09 (test code = 1344898263) IMM GRAN x10^3 (test <0.03 0.00-0.06 code = 3560196423) LYMPH x10^3 (test code 0.85 10*3/uL 1.32-3.29 L = 731-0) MONO x10^3 (test code 0.37 10*3/uL 0.33-0.92 = 742-7) EOS x10^3 (test code = <0.03 0.03-0.39 L 711-2) BASO x10^3 (test code <0.03 0.01-0.07 = 704-7) Lab Interpretation Abnormal (test code = 75440-3) [facility] WITH [id number] 09:59:44 Test Item Value Reference Range Interpretation Comments WBC (test code = See_Comment [Automated 6690-2) message] The system which generated this result transmitted reference range : 4.30 - 11.10 10*3/?L. The reference range was not used to interpret this result as normal/abnormal . RBC (test code = See_Comment [Automated 789-8) message] The system which generated this result transmitted reference range : 3.93 - 5.25 10*6/?L. The reference range was not used to interpret this result as normal/abnormal . HGB (test code = 11.5 g/dL 11.6-15.0 L 718-7) HCT (test code = 38.4 % 35.7-45.2 4544-3) MCV (test code = 88.5 fL 80.6-95.5 787-2) MCH (test code = 26.5 pg 25.9-32.8 785-6) MCHC (test code = 29.9 g/dL 31.6-35.1 L 786-4) RDW-SD (test code = 56.7 fL 39.0-49.9 H 32056-3) RDW-CV (test code = 17.5 % 12.0-15.5 H 788-0) PLT (test code = See_Comment [Automated 777-3) message] The system which generated this result transmitted reference range : 166 - 358 10*3/?L. The reference range was not used to interpret this result as normal/abnormal . MPV (test code = 10.9 fL 9.5-12.9 88473-5) NRBC/100 WBC (test See_Comment [Automat ed code = [id number]) message] The system which generated this result transmitted reference range : 0.0 - 10.0 /100 WBCs. The reference range was not used to interpret this result as normal/abnormal . NRBC x10^3 (test code <0.01 See_Comment [Auto mated = [id number]) message] The system which generated this result transmitted reference range : 10*3/?L. The reference range was not used to interpret this result as normal/abnormal . GRAN MAT (NEUT) % 84.5 % (test code = 770-8) IMM GRAN % (test code 0.30 % = [id number]) LYMPH % (test code = 9.7 % 736-9) MONO % (test code = 4.6 % 5905-5) EOS % (test code = 0.6 % 713-8) BASO % (test code = 0.3 % 706-2) GRAN MAT x10^3(ANC) 7.50 10*3/uL 1.88-7.09 H (test code = [id number]) IMM GRAN x10^3 (test 0.03 10*3/uL 0.00-0.06 code = [id number]) LYMPH x10^3 (test 0.86 10*3/uL 1.32-3.29 L code = 731-0) MONO x10^3 (test code 0.41 10*3/uL 0.33-0.92 = 742-7) EOS x10^3 (test code 0.05 10*3/uL 0.03-0.39 = 711-2) BASO x10^3 (test code 0.03 10*3/uL 0.01-0.07 = 704-7) BANDS (test code = MARKED INCREASED A [id number]) TOXIC CHANGES (test Present A code = 803-7) Lab Interpretation Abnormal (test code = 80046-4) [facility] METABOLIC PANEL (NA, K, CL, CO2, GLUCOSE, BUN, CREATININE, CA)2021-05-01 09:54:58 Test Item Value Reference Range Interpretation Comments NA (test code = 141 mmol/L 135-145 [id number]) K (test code = 4.1 mmol/L 3.5-5.0 8425838193) CL (test code = 107 mmol/L 98-108 5641433127) CO2 TOTAL (test code = 29 mmol/L 23-31 [id number]) AGAP (test code = 2-16 8780824808) BUN (test code = 37 mg/dL 7-23 H 2196354263) GLUCOSE (test code = 100 mg/dL 70-110 9754481327) CREATININE (test code = 0.46 mg/dL 0.50-1.04 L 2705927578) CALCIUM (test code = 9.6 mg/dL 8.6-10.6 4815569156) eGFR (test code = mL/min/1.73m2 2123505586) AYESHA (test code = AYESHA) Association of Glomerular Filtration Rate (GFR) and Staging of Kidney Disease* + --+ --+ ------+| GFR (mL/min/1.73 m2) ?| With Kidney Damage ?| ?Without Kidney Damage+ --------+ --------+ +| ?>90 ?| ?Stage one ?| ? Normal ?+ ---+ ---+ -------+| ?60-89 ?| ?Stage two ?| ? Decreased GFR ? + --+ --+ ------+| ?30-59 ?| ?Stage three ?| ? Stage three ? + --+ --+ ------+| ?15-29 ?| ?Stage four ? | ? Stage four ?+ ---+ ---+ -------+| ?<15 (or dialysis) ? ?| ?Stage five ? | ? Stage five ?+ ---+ ---+ -------+ *Each stage assumes the associated GFR level has been in effect for at least three months. ?Stages 1 to 5, with or without kidney disease, indicate chronic kidney disease. Notes: Determination of stages one and two (with eGFR >59mL/min/1.73 m2) requires estimation of kidney damage for at least three months as defined by structural or functional abnormalities of the kidney, manifested by either:Pathological abnormalities or Markers of kidney damage (including abnormalities in the composition of the blood or urine or abnormalities in imaging tests). Lab Interpretation Abnormal (test code = 74094-7) [facility] LACTIC [id number] 19:41:12 Test Item Value Reference Range Interpretation Comments PH (test code = 2) 7.35-7.45 PCO2 (test code = See_Comment [Automat ed [id number]) message] The sy stem which generated this result transmitted reference range : 35 - 45 mmHg. The reference range was not used to interpret this result as normal/abnormal . PO2 (test code = See_Comment H [Automated 5763965600) message] The sy stem which generated this result transmitted reference range : 80 - 100 mmHg. The reference range was not used to interpret this result as normal/abnormal . HCO3 (test code = See_Comment [Automate d 8540244179) message] The sy stem which generated this result transmitted reference range : 22 - 26 mEq/L. The reference range was not used to interpret this result as normal/abnormal . BE (test code = See_Comment [Automated 3012489802) message] The sy stem which generated this result transmitted reference range : -3.0 - 3.0 mEq/ L. The reference r abdifatah was not used to interpret this result as normal/abnormal . THB (test code = 13.0 g/dL 12.0-16.0 0777303667) %O2HB (test code = 98.0 % 94.0-99.0 5634221239) %COHB ART (test code = 0.3 % 0.0-1.5 0762438320) %METHB ART (test code = 0.1 % 0.4-1.5 L 0953811180) VOL%O2 ART (test code = 18.0 % 15.0-23.0 2121889521) NA (test code = 140 mmol/L 135-145 0409566472) K+ (test code = 4.1 mmol/L 3.5-5.0 6843233595) AC CA IONZ (test code = 5.20 mg/dL 4.50-5.30 0860543580) GLUCOSE (test code = 94 mg/dL 70-110 6044731919) LACTIC ACID (test code 1.38 mmol/L 0.50-2.20 = 7378844937) Lab Interpretation Abnormal (test code = 20272-7) [facility] with Lxgctxprimlf4252-31-79 10:35:49 Test Item Value Reference Range Interpretation Comments WBC (test code = See_Comment [Automated 6690-2) message] The system which generated this result transmitted reference range : 4.30 - 11.10 10*3/?L. The reference range was not used to interpret this result as normal/abnormal . RBC (test code = See_Comment [Automated 789-8) message] The system which generated this result transmitted reference range : 3.93 - 5.25 10*6/?L. The reference range was not used to interpret this result as normal/abnormal . HGB (test code = 12.8 g/dL 11.6-15.0 718-7) HCT (test code = 42.5 % 35.7-45.2 4544-3) MCV (test code = 87.3 fL 80.6-95.5 787-2) MCH (test code = 26.3 pg 25.9-32.8 785-6) MCHC (test code = 30.1 g/dL 31.6-35.1 L 786-4) RDW-SD (test code = 57.5 fL 39.0-49.9 H 43975-0) RDW-CV (test code = 17.9 % 12.0-15.5 H 788-0) PLT (test code = See_Comment [Automated 777-3) message] The system which generated this result transmitted reference range : 166 - 358 10*3/?L. The reference range was not used to interpret this result as normal/abnormal . MPV (test code = 10.1 fL 9.5-12.9 90066-5) NRBC/100 WBC (test See_Comment [Automat ed code = 9245133160) message] The system which generated this result transmitted reference range : 0.0 - 10.0 /100 WBCs. The reference range was not used to interpret this result as normal/abnormal . NRBC x10^3 (test code <0.01 See_Comment [Auto mated = 0750962178) message] The system which generated this result transmitted reference range : 10*3/?L. The reference range was not used to interpret this result as normal/abnormal . GRAN MAT (NEUT) % 74.8 % (test code = 770-8) IMM GRAN % (test code 0.30 % = 0290314331) LYMPH % (test code = 18.1 % 736-9) MONO % (test code = 6.0 % 5905-5) EOS % (test code = 0.0 % 713-8) BASO % (test code = 0.8 % 706-2) GRAN MAT x10^3(ANC) 7.44 10*3/uL 1.88-7.09 H (test code = 5321858902) IMM GRAN x10^3 (test 0.03 10*3/uL 0.00-0.06 code = 1131888440) LYMPH x10^3 (test 1.80 10*3/uL 1.32-3.29 code = 731-0) MONO x10^3 (test code 0.60 10*3/uL 0.33-0.92 = 742-7) EOS x10^3 (test code <0.03 0.03-0.39 L = 711-2) BASO x10^3 (test code 0.08 10*3/uL 0.01-0.07 H = 704-7) BANDS (test code = MARKED INCREASED A 5250669679) TOXIC CHANGES (test Present A code = 803-7) Lab Interpretation Abnormal (test code = 04171-6) [facility] Metabolic Panel (NA, K, CL, CO2, GLUCOSE, BUN, CREATININE, CA)2021-04-30 10:20:48 Test Item Value Reference Range Interpretation Comments NA (test code = 143 mmol/L 135-145 2812569746) K (test code = 5.1 mmol/L 3.5-5.0 H 9100318037) CL (test code = 105 mmol/L 98-108 5250706644) CO2 TOTAL (test code = 29 mmol/L 23-31 4590229145) AGAP (test code = 2-16 4228797863) BUN (test code = 26 mg/dL 7-23 H 7619234092) GLUCOSE (test code = 109 mg/dL 70-110 0292814125) CREATININE (test code = 0.60 mg/dL 0.50-1.04 9094652115) CALCIUM (test code = 10.1 mg/dL 8.6-10.6 2714293981) eGFR (test code = mL/min/1.73m2 2947650930) AYESHA (test code = AYESHA) Association of Glomerular Filtration Rate (GFR) and Staging of Kidney Disease* + --+ --+ ------+| GFR (mL/min/1.73 m2) ?| With Kidney Damage ?| ?Without Kidney Damage+ --------+ --------+ +| ?>90 ?| ?Stage one ?| ? Normal ?+ ---+ ---+ -------+| ?60-89 ?| ?Stage two ?| ? Decreased GFR ? + --+ --+ ------+| ?30-59 ?| ?Stage three ?| ? Stage three ? + --+ --+ ------+| ?15-29 ?| ?Stage four ? | ? Stage four ?+ ---+ ---+ -------+| ?<15 (or dialysis) ? ?| ?Stage five ? | ? Stage five ?+ ---+ ---+ -------+ *Each stage assumes the associated GFR level has been in effect for at least three months. ?Stages 1 to 5, with or without kidney disease, indicate chronic kidney disease. Notes: Determination of stages one and two (with eGFR >59mL/min/1.73 m2) requires estimation of kidney damage for at least three months as defined by structural or functional abnormalities of the kidney, manifested by either:Pathological abnormalities or Markers of kidney damage (including abnormalities in the composition of the blood or urine or abnormalities in imaging tests). Lab Interpretation Abnormal (test code = 75878-0) [facility] WITH [id number] 17:44:29 Test Item Value Reference Range Interpretation Comments WBC (test code = See_Comment [Automated 9848-2) message] The system which generated this result transmitted reference range : 4.30 - 11.10 10*3/?L. The reference range was not used to interpret this result as normal/abnormal . RBC (test code = See_Comment [Automated 031-6) message] The system which generated this result transmitted reference range : 3.93 - 5.25 10*6/?L. The reference range was not used to interpret this result as normal/abnormal . HGB (test code = 13.1 g/dL 11.6-15.0 718-7) HCT (test code = 42.9 % 35.7-45.2 4544-3) MCV (test code = 85.5 fL 80.6-95.5 787-2) MCH (test code = 26.1 pg 25.9-32.8 785-6) MCHC (test code = 30.5 g/dL 31.6-35.1 L 786-4) RDW-SD (test code = 58.4 fL 39.0-49.9 H 67853-6) RDW-CV (test code = 18.6 % 12.0-15.5 H 788-0) PLT (test code = See_Comment [Automated 777-3) message] The system which generated this result transmitted reference range : 166 - 358 10*3/?L. The reference range was not used to interpret this result as normal/abnormal . MPV (test code = 10.4 fL 9.5-12.9 12597-3) NRBC/100 WBC (test See_Comment [Automat ed code = 1883382795) message] The system which generated this result transmitted reference range : 0.0 - 10.0 /100 WBCs. The reference range was not used to interpret this result as normal/abnormal . NRBC x10^3 (test code <0.01 See_Comment [Auto mated = 0837852508) message] The system which generated this result transmitted reference range : 10*3/?L. The reference range was not used to interpret this result as normal/abnormal . GRAN MAT (NEUT) % 76.9 % (test code = 770-8) IMM GRAN % (test code 0.30 % = 4577130362) LYMPH % (test code = 8.6 % 736-9) MONO % (test code = 8.2 % 5905-5) EOS % (test code = 5.3 % 713-8) BASO % (test code = 0.7 % 706-2) GRAN MAT x10^3(ANC) 5.80 10*3/uL 1.88-7.09 (test code = 0634003696) IMM GRAN x10^3 (test <0.03 0.00-0.06 code = 8434198622) LYMPH x10^3 (test 0.65 10*3/uL 1.32-3.29 L code = 731-0) MONO x10^3 (test code 0.62 10*3/uL 0.33-0.92 = 742-7) EOS x10^3 (test code 0.40 10*3/uL 0.03-0.39 H = 711-2) BASO x10^3 (test code 0.05 10*3/uL 0.01-0.07 = 704-7) BANDS (test code = MARKED INCREASED A 3199598643) PLT ESTIMATE (test Normal Normal code = 9317-9) Lab Interpretation Abnormal (test code = 64978-2) [facility] ROR-[id number] 17:16:07 Test Item Value Reference Range Interpretation Comments NT-proBNP (test code 63 pg/mL See_Comment [Autom ated = 1082848705) message] The system which generated this result transmitted reference range : <=125. The reference range was not used to interpret this result as normal/abnormal . AYESHA (test code = AYESHA) Biotin has been reported to cause a negative bias, interpret results relative to patient's use of biotin. Lab Interpretation Normal (test code = 34114-4) [facility] [id number] 17:16:07 Test Item Value Reference Interpretation Comments Range TROPONIN I (test 0.006 ng/mL See_Comment [Automated code = 9435607730) message] The system which generated this result transmitted reference range : <=0.034. The reference range was not used to interpret this result as normal/abnormal . AYESHA (test code = Reference (Normal) AYESHA) Range (defined by the 99th percentile reference limit): <= 0.034 ng/mL Note: Cardiac troponin begins to rise 3-4 hours after the onset of ischemia. Repeat in 4-6 hours if the sample was drawn within 3-4 hours of the onset of the symptom and found normal. Diagnosis of myocardial injury is made with acute changes in cTn concentrations with at least one serial sample above the 99th percentile upper reference limit (URL), taken together with the patient's clinical presentation. Biotin has been reported to cause a negative bias, interpret results relative to patient's use of biotin. Lab Interpretation Normal (test code = 12362-4) [facility] MET[facility]OLIC PAN[facility] (61157)2021-04-29 17:05:24 Test Item Value Reference Range Interpretation Comments NA (test code = 139 mmol/L 135-145 6819619681) K (test code = 4.9 mmol/L 3.5-5.0 Slight 1424999756) hemolysis CL (test code = 106 mmol/L 98-108 0191997600) CO2 TOTAL (test code 22 mmol/L 23-31 L = 8129853773) AGAP (test code = 2-16 0213414359) BUN (test code = 20 mg/dL 7-23 Slight 4104072823) hemolysis GLUCOSE (test code = 139 mg/dL 70-110 H 8414188242) CREATININE (test code 0.36 mg/dL 0.50-1.04 L = 7383618745) TOTAL BILI (test code 0.8 mg/dL 0.1-1.1 = 9923597823) CALCIUM (test code = 9.8 mg/dL 8.6-10.6 2091990885) T PROTEIN (test code 8.0 g/dL 6.3-8.2 = 5241757071) ALBUMIN (test code = 4.1 g/dL 3.5-5.0 2470086379) ALK PHOS (test code = 101 U/L 34-122 Slight 0796187081) hemolysis ALTv (test code = 82 U/L 5-35 H 1742-6) AST(SGOT) (test code 112 U/L 13-40 H Slight = 6879400496) hemolysis eGFR (test code = mL/min/1.73m2 8038615324) AYESHA (test code = AYESHA) Association of Glomerular Filtration Rate (GFR) and Staging of Kidney Disease* + -----+ --------+ +| GFR (mL/min/1.73 m2) ?| With Kidney Damage ?| ?Without Kidney Damage+ +------- +---- --+| ?>90 ?| ?Stage one ?| ? Normal ?+ ------+ ---------+--------- +| ?60-89 ?| ?Stage two ?| ? Decreased GFR ? + -----+ --------+ +| ?30-59 ?| ?Stage three ?| ? Stage three ? + -----+ --------+ +| ?15-29 ?| ?Stage four ? | ? Stage four ?+ ------+ ---------+--------- +| ?<15 (or dialysis) ? ?| ?Stage five ? | ? Stage five ?+ ------+ ---------+--------- + *Each stage assumes the associated GFR level has been in effect for at least three months. ?Stages 1 to 5, with or without kidney disease, indicate chronic kidney disease. Notes: Determination of stages one and two (with eGFR >59mL/min/1.73 m2) requires estimation of kidney damage for at least three months as defined by structural or functional abnormalities of the kidney, manifested by either:Pathological abnormalities or Markers of kidney damage (including abnormalities in the composition of the blood or urine or abnormalities in imaging tests). Lab Interpretation Abnormal (test code = 36889-4) [facility]landsPROTHROMBIN TIME / [id number] 16:59:46 Test Item Value Reference Range Interpretation Comments PROTIME PATIENT (test See_Comment [Auto mated message] code = 5964-2) The system [employer] generated this result transmitted ref erence range: 10.1 - 1 2.6 Seconds. The re ference range was not u sed to interpret this result as normal/abnor mal. INR (test code = 6301-6) Nor mal INR <1.1; Warfarin Therap eutic range 2.0 to 3. 0 or 2.5 to 3.5, dep ending upon the indica tions. Lab Interpretation (test Normal code = 47389-7) [facility]ABG+COOX+NA+K+GLU+CA2+2021-04-29 16:48:07 Test Item Value Reference Range Interpretation Comments PH (test code = 2) 7.35-7.45 PCO2 (test code = See_Comment [Automat ed message] 4258768699) The system [employer] generated this result transmit gill reference range : 35 - 45 mmHg. The reference range was not used to interpret this result as normal/abnormal . PO2 (test code = See_Comment L [Automated message] 2134277812) The system [employer] generated this result transmit gill reference range : 80 - 100 mmHg. The reference range was not used to interpret this result as normal/abnormal . HCO3 (test code = See_Comment [Automate d message] 5127971777) The system [employer] generated this result transmit gill reference range : 22 - 26 mEq/L. The reference range was not used to interpret this result as normal/abnormal . BE (test code = See_Comment [Automated message] 7998449273) The system [employer] generated this result transmit gill reference range : -3.0 - 3.0 mEq/ L. The reference r abdifatah was not used to interpret this result as normal/abnormal . THB (test code = 13.4 g/dL 12.0-16.0 2034555312) %O2HB (test code = 88.1 % 94.0-99.0 L 5008244281) %COHB ART (test code = 0.2 % 0.0-1.5 9403810972) %METHB ART (test code = 0.1 % 0.4-1.5 L 6833228305) VOL%O2 ART (test code = 16.6 % 15.0-23.0 9400748580) NA (test code = 140 mmol/L 135-145 3360773773) K+ (test code = 3.8 mmol/L 3.5-5.0 6549265173) AC CA IONZ (test code = 5.20 mg/dL 4.50-5.30 2314321451) GLUCOSE (test code = 141 mg/dL 70-110 H 2911030577) Lab Interpretation Abnormal (test code = 85575-3) [facility]landsL[facility] Acid Whole Iudsu1962-97-59 16:47:47 Test Item Value Reference Range Interpretation Comments LACTIC ACID (test code = 0.81 mmol/L 0.50-2.20 5986292646) Lab Interpretation (test code = Normal 05779-3) [facility]2021-[facility]-20 11:25:00 Test Item Value Reference Range Interpretation Comments D-Dimer (test code = D-Dimer) 1.25 [facility] [id number] 10:16:00 Test Item Value Reference Range Interpretation Comments Troponin-I (test code no gt See_Comment [Auto mated message] The = Troponin-I) system which g enerated this result transmit gill reference range : <=0.40. The reference r abdifatah was not used to interpr et this result as len l/abnormal. [facility]annCARD[facility] BQYXHMF3763-76-05 10:16:00 Test Item Value Reference Range Interpretation Comments BNP (test code = BNP) 6 [facility]2021-11-20 10:16:00 Test Item Value Reference Range Interpretation Comments Glucose Lvl (test code = Glucose Lvl) 94 70-99 [facility]2021-11-20 10:16:00 Test Item Value Reference Range Interpretation Comments BUN (test code = BUN) 23 7-22 [place] 780161-11-20 10:16:00 Test Item Value Reference Range Interpretation Comments Creatinine Lvl (test code = Creatinine 0.50 0.50-1.40 Lvl) [facility]2021-11-20 10:16:00 Test Item Value Reference Range Interpretation Comments Sodium Lvl (test code = Sodium Lvl) 140 135-145 [facility]2021-11-20 10:16:00 Test Item Value Reference Range Interpretation Comments Potassium Lvl (test code = Potassium 4.0 3.5-5.1 Lvl) [facility]2021-11-20 10:16:00 Test Item Value Reference Range Interpretation Comments Chloride Lvl (test code = Chloride Lvl) 108 95-109 [place] 780161-11-20 10:16:00 Test Item Value Reference Range Interpretation Comments CO2 (test code = CO2) 27 24-32 [place] 780161-11-20 10:16:00 Test Item Value Reference Range Interpretation Comments Calcium Lvl (test code = Calcium Lvl) 11.1 8.5-10.5 [place] 780161-11-20 10:16:00 Test Item Value Reference Range Interpretation Comments Total Protein (test code = Total 9.0 6.4-8.4 Protein) [place] 780161-11-20 10:16:00 Test Item Value Reference Range Interpretation Comments Albumin Lvl (test code = Albumin Lvl) 3.0 3.5-5.0 [place] 780161-11-20 10:16:00 Test Item Value Reference Range Interpretation Comments ALT (test code = ALT) 26 See_Comment [Auto mated message] The system which ge nerated this result transmit gill reference range : <=65. The reference range was not used to interpr et this result as len l/abnormal. [place] 780161-11-20 10:16:00 Test Item Value Reference Range Interpretation Comments AST (test code = AST) 35 See_Comment [Auto mated message] The system which ge nerated this result transmit gill reference range : <=37. The reference range was not used to interpr et this result as len l/abnormal. [place] 780161-11-20 10:16:00 Test Item Value Reference Range Interpretation Comments Alk Phos (test code = Alk Phos) 109 39-136 [place] 780161-11-20 10:16:00 Test Item Value Reference Range Interpretation Comments Bili Total (test code = Bili Total) 0.5 0.2-1.3 [place] 780161-11-20 10:16:00 Test Item Value Reference Range Interpretation Comments AGAP (test code = AGAP) 9.0 10.0-20.0 [place] 780161-11-20 10:16:00 Test Item Value Reference Range Interpretation Comments B/C Ratio (test code = B/C Ratio) 46 1 6-25 [place] 780161-11-20 10:16:00 Test Item Value Reference Range Interpretation Comments Globulin (test code = Globulin) 6.0 2.7-4.2 [place] 780161-11-20 10:16:00 Test Item Value Reference Range Interpretation Comments A/G Ratio (test code = A/G Ratio) 0.5 1 0.7-1.6 [place] 780161-11-20 10:16:00 Test Item Value Reference Range Interpretation Comments eGFR (test code = eGFR) 109 [place] 657681-11-20 10:16:00 Test Item Value Reference Range Interpretation Comments WBC (test code = WBC) 7.6 3.7-10.4 [place] 657681-11-20 10:16:00 Test Item Value Reference Range Interpretation Comments RBC (test code = RBC) 4.19 4.20-5.40 [place] 657681-11-20 10:16:00 Test Item Value Reference Range Interpretation Comments Hgb (test code = Hgb) 11.0 12.0-16.0 [place] 657681-11-20 10:16:00 Test Item Value Reference Range Interpretation Comments Hct (test code = Hct) 34.5 36.0-48.0 [facility]DrkxkekMOLRPGHXNX6447-98-66 10:16:00 Test Item Value Reference Range Interpretation Comments MCV (test code = MCV) 82.2 80.0-98.0 [facility] CenterXntsikjEFRPCUKYQX4382-09-35 10:16:00 Test Item Value Reference Range Interpretation Comments MCH (test code = MCH) 26.3 pg 27.0-31.0 [facility] CenterTutewmoOEEBSONJQJ8842-12-65 10:16:00 Test Item Value Reference Range Interpretation Comments MCHC (test code = MCHC) 32.0 32.0-36.0 [facility] CenterDxwgzrcRGCOQTYTSR5813-39-29 10:16:00 Test Item Value Reference Range Interpretation Comments RDW (test code = RDW) 17.1 11.5-14.5 [place] 657681-11-20 10:16:00 Test Item Value Reference Range Interpretation Comments Platelet (test code = Platelet) 448 133-450 [facility] CenterZtfhtlcAQBJCYBWDH5202-12-20 10:16:00 Test Item Value Reference Range Interpretation Comments MPV (test code = MPV) 7.7 7.4-10.4 [facility] CenterKppmqrhQLEQLVVKVC6288-01-67 10:16:00 Test Item Value Reference Range Interpretation Comments Segs (test code = Segs) 48.0 45.0-75.0 [facility] CenterShzncizVYACKHFZQD4491-89-53 10:16:00 Test Item Value Reference Range Interpretation Comments Lymphocytes (test code = Lymphocytes) 38.5 20.0-40.0 [facility] CenterSmpmhgaMZZDLOGEZQ5653-95-46 10:16:00 Test Item Value Reference Range Interpretation Comments Monocytes (test code = Monocytes) 9.7 2.0-12.0 [place] 657681-11-20 10:16:00 Test Item Value Reference Range Interpretation Comments Eosinophils (test code = 2.2 See_Comment [A utomated message] The Eosinophils) system which ge nerated this result tra nsmitted reference range : <=4.0. The reference r abdifatah was not used to int erpret this result as normal/abnormal . [facility] CenterConwvqhFEKBHXCBPN7409-72-88 10:16:00 Test Item Value Reference Range Interpretation Comments Basophils (test code = 1.6 See_Comment [Aut omated message] The Basophils) system which ge nerated this result tra nsmitted reference range : <=1.0. The reference r abdifatah was not used to int erpret this result as normal/abnormal . [facility] CenterTzxrlksKGKVWLQDEV0635-57-42 10:16:00 Test Item Value Reference Range Interpretation Comments Neutrophils # (test code = Neutrophils 3.6 1.5-8.1 #) [facility] CenterLrjciyjCONENXJLDQ1854-38-11 10:16:00 Test Item Value Reference Range Interpretation Comments Lymphocytes # (test code = Lymphocytes 2.9 1.0-5.5 #) [facility] CenterMxdvfhkBBAXDZZTMB8444-62-17 10:16:00 Test Item Value Reference Range Interpretation Comments Monocytes # (test code 0.7 See_Comment [Aut omated message] The = Monocytes #) system which generated this result tra nsmitted reference range : <=0.8. The reference r abdifatah was not used to int erpret this result as normal/abnormal . [facility] CenterQihrbaoTJZZRCFILA9310-24-69 10:16:00 Test Item Value Reference Range Interpretation Comments Eosinophils # (test code 0.2 See_Comment [A utomated message] The = Eosinophils #) system whic h generated this result tra nsmitted reference range : <=0.5. The reference r abdifatah was not used to int erpret this result as normal/abnormal . [facility] CenterAnhnanbCSVWPFZJLK4942-44-33 10:16:00 Test Item Value Reference Range Interpretation Comments Basophils # (test code 0.1 See_Comment [Aut omated message] The = Basophils #) system which generated this result tra nsmitted reference range : <=0.2. The reference r abdifatah was not used to int erpret this result as normal/abnormal . [facility]BpntqneLGIWKKGUBN4605-62-70 10:16:00 Test Item Value Reference Range Interpretation Comments Coronavirus (COVID-19) Not Detected KASSY (test code = (03/17/21 4:16 AM) Coronavirus (COVID-19) KASSY) [facility]2021-11-18 10:55:00 Test Item Value Reference Range Interpretation Comments Glucose Lvl (test code = Glucose Lvl) 106 70-99 [facility] EGUVD0782-21-10 10:55:00 Test Item Value Reference Range Interpretation Comments BUN (test code = BUN) 17 7-22 [place] [id number] 10:55:00 Test Item Value Reference Range Interpretation Comments Creatinine Lvl (test code = Creatinine 0.34 0.50-1.40 Lvl) [place] 780161-11-18 10:55:00 Test Item Value Reference Range Interpretation Comments Sodium Lvl (test code = Sodium Lvl) 141 135-145 [place] 780161-11-18 10:55:00 Test Item Value Reference Range Interpretation Comments Potassium Lvl (test code = Potassium 4.1 3.5-5.1 Lvl) [place] 780161-11-18 10:55:00 Test Item Value Reference Range Interpretation Comments Chloride Lvl (test code = Chloride Lvl) 106 95-109 [place] 780161-11-18 10:55:00 Test Item Value Reference Range Interpretation Comments CO2 (test code = CO2) 28 24-32 [place] 780161-11-18 10:55:00 Test Item Value Reference Range Interpretation Comments Calcium Lvl (test code = Calcium Lvl) 10.7 8.5-10.5 [place] 780161-11-18 10:55:00 Test Item Value Reference Range Interpretation Comments AGAP (test code = AGAP) 11.1 10.0-20.0 [place] [address]-11-18 10:55:00 Test Item Value Reference Range Interpretation Comments eGFR (test code = eGFR) 123 [place] 657681-11-18 10:55:00 Test Item Value Reference Range Interpretation Comments WBC (test code = WBC) 6.6 3.7-10.4 [place] [address]-11-18 10:55:00 Test Item Value Reference Range Interpretation Comments RBC (test code = RBC) 3.83 4.20-5.40 [place] [address]-11-18 10:55:00 Test Item Value Reference Range Interpretation Comments Hgb (test code = Hgb) 10.2 12.0-16.0 [place] [address]-11-18 10:55:00 Test Item Value Reference Range Interpretation Comments Hct (test code = Hct) 31.4 36.0-48.0 [place] 657681-11-18 10:55:00 Test Item Value Reference Range Interpretation Comments MCV (test code = MCV) 81.8 80.0-98.0 [place] 657681-11-18 10:55:00 Test Item Value Reference Range Interpretation Comments MCH (test code = MCH) 26.7 pg 27.0-31.0 [place] 657681-11-18 10:55:00 Test Item Value Reference Range Interpretation Comments MCHC (test code = MCHC) 32.6 32.0-36.0 [place] 657681-11-18 10:55:00 Test Item Value Reference Range Interpretation Comments RDW (test code = RDW) 16.7 11.5-14.5 [place] 657681-11-18 10:55:00 Test Item Value Reference Range Interpretation Comments Platelet (test code = Platelet) 400 133-450 [facility]KnwmpalYPJTKJMYVI9484-30-86 10:55:00 Test Item Value Reference Range Interpretation Comments MPV (test code = MPV) 7.3 7.4-10.4 [place] 657681-11-18 10:55:00 Test Item Value Reference Range Interpretation Comments Segs (test code = Segs) 60.5 45.0-75.0 [place] 657681-11-18 10:55:00 Test Item Value Reference Range Interpretation Comments Lymphocytes (test code = Lymphocytes) 24.4 20.0-40.0 [place] 657681-11-18 10:55:00 Test Item Value Reference Range Interpretation Comments Monocytes (test code = Monocytes) 13.2 2.0-12.0 [place] 657681-11-18 10:55:00 Test Item Value Reference Range Interpretation Comments Eosinophils (test code = 1.4 See_Comment [A utomated message] The Eosinophils) system which ge nerated this result tra nsmitted reference range : <=4.0. The reference r abdifatah was not used to int erpret this result as normal/abnormal . [place] 657681-11-18 10:55:00 Test Item Value Reference Range Interpretation Comments Basophils (test code = 0.5 See_Comment [Aut omated message] The Basophils) system which ge nerated this result tra nsmitted reference range : <=1.0. The reference r abdifatah was not used to int erpret this result as normal/abnormal . [place] [address]-11-18 10:55:00 Test Item Value Reference Range Interpretation Comments Neutrophils # (test code = Neutrophils 4.0 1.5-8.1 #) [place] [address]-11-18 10:55:00 Test Item Value Reference Range Interpretation Comments Lymphocytes # (test code = Lymphocytes 1.6 1.0-5.5 #) [place] [address]-11-18 10:55:00 Test Item Value Reference Range Interpretation Comments Monocytes # (test code 0.9 See_Comment [Aut omated message] The = Monocytes #) system which generated this result tra nsmitted reference range : <=0.8. The reference r abdifatah was not used to int erpret this result as normal/abnormal . [address]11-18 10:55:00 Test Item Value Reference Range Interpretation Comments Eosinophils # (test code 0.1 See_Comment [A utomated message] The = Eosinophils #) system whic h generated this result tra nsmitted reference range : <=0.5. The reference r abdifatah was not used to int erpret this result as normal/abnormal . [place] 780161-11-17 08:13:00 Test Item Value Reference Range Interpretation Comments Glucose Lvl (test code = Glucose Lvl) 118 70-99 [place] [address]-11-17 08:13:00 Test Item Value Reference Range Interpretation Comments BUN (test code = BUN) 20 7-22 [place] [address]-11-17 08:13:00 Test Item Value Reference Range Interpretation Comments Creatinine Lvl (test code = Creatinine 0.48 0.50-1.40 Lvl) [place] [address]-11-17 08:13:00 Test Item Value Reference Range Interpretation Comments Sodium Lvl (test code = Sodium Lvl) 140 135-145 [place] [address]-11-17 08:13:00 Test Item Value Reference Range Interpretation Comments Potassium Lvl (test code = Potassium 4.3 3.5-5.1 Lvl) [address]11-17 08:13:00 Test Item Value Reference Range Interpretation Comments Chloride Lvl (test code = Chloride Lvl) 105 95-109 [place] [address]-11-17 08:13:00 Test Item Value Reference Range Interpretation Comments CO2 (test code = CO2) 28 24-32 [place] 780161-11-17 08:13:00 Test Item Value Reference Range Interpretation Comments Calcium Lvl (test code = Calcium Lvl) 10.6 8.5-10.5 [place] 780161-11-17 08:13:00 Test Item Value Reference Range Interpretation Comments AGAP (test code = AGAP) 11.3 10.0-20.0 [place] 780161-11-17 08:13:00 Test Item Value Reference Range Interpretation Comments eGFR (test code = eGFR) 110 [place] 657681-11-17 08:13:00 Test Item Value Reference Range Interpretation Comments WBC (test code = WBC) 7.2 3.7-10.4 [place] 657681-11-17 08:13:00 Test Item Value Reference Range Interpretation Comments RBC (test code = RBC) 4.10 4.20-5.40 [place] 657681-11-17 08:13:00 Test Item Value Reference Range Interpretation Comments Hgb (test code = Hgb) 10.9 12.0-16.0 [place] 657681-11-17 08:13:00 Test Item Value Reference Range Interpretation Comments Hct (test code = Hct) 33.9 36.0-48.0 [place] 657681-11-17 08:13:00 Test Item Value Reference Range Interpretation Comments MCV (test code = MCV) 82.5 80.0-98.0 [place] 657681-11-17 08:13:00 Test Item Value Reference Range Interpretation Comments MCH (test code = MCH) 26.5 pg 27.0-31.0 [place] [address]-11-17 08:13:00 Test Item Value Reference Range Interpretation Comments MCHC (test code = MCHC) 32.1 32.0-36.0 [place] [address]-11-17 08:13:00 Test Item Value Reference Range Interpretation Comments RDW (test code = RDW) 17.2 11.5-14.5 [place] [address]-11-17 08:13:00 Test Item Value Reference Range Interpretation Comments Platelet (test code = Platelet) 445 133-450 [facility] CenterXesftfqCATJYYVHZV1305-78-06 08:13:00 Test Item Value Reference Range Interpretation Comments MPV (test code = MPV) 7.4 7.4-10.4 [facility] CenterXdlvyydXQTMZWJUEB8203-68-81 08:13:00 Test Item Value Reference Range Interpretation Comments Segs (test code = Segs) 70.6 45.0-75.0 [facility] CenterCpxcnohJXOEDVGFVH8709-98-52 08:13:00 Test Item Value Reference Range Interpretation Comments Lymphocytes (test code = Lymphocytes) 16.7 20.0-40.0 [facility] CenterVxlrrpgKVMDUWPSVF0002-69-90 08:13:00 Test Item Value Reference Range Interpretation Comments Monocytes (test code = Monocytes) 11.8 2.0-12.0 [facility] CenterRivwvpdENPKIHICDN3576-43-26 08:13:00 Test Item Value Reference Range Interpretation Comments Eosinophils (test code = 0.6 See_Comment [A utomated message] The Eosinophils) system which ge nerated this result tra nsmitted reference range : <=4.0. The reference r abdifatah was not used to int erpret this result as normal/abnormal . [facility] CenterAkgazinZPDRALUHUK6841-03-44 08:13:00 Test Item Value Reference Range Interpretation Comments Basophils (test code = 0.3 See_Comment [Aut omated message] The Basophils) system which ge nerated this result tra nsmitted reference range : <=1.0. The reference r abdifaath was not used to int erpret this result as normal/abnormal . [facility] CenterKhhotilCEGYAIJXQH6593-91-72 08:13:00 Test Item Value Reference Range Interpretation Comments Neutrophils # (test code = Neutrophils 5.1 1.5-8.1 #) [facility] CenterOibexghDUSPJZQTJO2186-89-06 08:13:00 Test Item Value Reference Range Interpretation Comments Lymphocytes # (test code = Lymphocytes 1.2 1.0-5.5 #) [facility] CenterVhcxmjxNHHQDSLPDL3975-83-19 08:13:00 Test Item Value Reference Range Interpretation Comments Monocytes # (test code 0.8 See_Comment [Aut omated message] The = Monocytes #) system which generated this result tra nsmitted reference range : <=0.8. The reference r abdifatah was not used to int erpret this result as normal/abnormal . [facility] CTEQYAU5066-48-61 06:51:00 Test Item Value Reference Range Interpretation Comments ABO/Rh (test code = ABO/Rh) A POS [facility] [employer] [facility] center[facility] [employer] [facility] VBKOEPC5265-05-08 06:51:00 Test Item Value Reference Range Interpretation Comments Antibody Scrn (test Negative (03/13/21 code = Antibody Scrn) 12:51 AM) [facility] [id number] 06:51:00 Test Item Value Reference Range Interpretation Comments Glucose Lvl (test code = Glucose Lvl) 67 70-99 [facility] EWAHK0508-48-08 06:51:00 Test Item Value Reference Range Interpretation Comments BUN (test code = BUN) 18 7-22 [facility] [email or web address] [id number] 06:51:00 Test Item Value Reference Range Interpretation Comments Creatinine Lvl (test code = Creatinine 0.49 0.50-1.40 Lvl) [facility] ANKAV1401-09-90 06:51:00 Test Item Value Reference Range Interpretation Comments Sodium Lvl (test code = Sodium Lvl) 141 135-145 [facility] ZIURR4964-98-08 06:51:00 Test Item Value Reference Range Interpretation Comments Potassium Lvl (test code = Potassium 4.1 3.5-5.1 Lvl) [facility] [email or web address] [id number] 06:51:00 Test Item Value Reference Range Interpretation Comments Chloride Lvl (test code = Chloride Lvl) 106 95-109 [facility] WCIKU8650-82-49 06:51:00 Test Item Value Reference Range Interpretation Comments CO2 (test code = CO2) 26 24-32 [facility] [id number] 06:51:00 Test Item Value Reference Range Interpretation Comments AGAP (test code = AGAP) 13.1 10.0-20.0 [facility] [email or web address] [id number] 06:51:00 Test Item Value Reference Range Interpretation Comments Calcium Lvl (test code = Calcium Lvl) 10.5 8.5-10.5 [facility] RHLHG1314-10-26 06:51:00 Test Item Value Reference Range Interpretation Comments eGFR (test code = eGFR) 109 [facility]CcqztrpDFXDXHHMTH3724-80-71 06:51:00 Test Item Value Reference Range Interpretation Comments RBC Morph (test code = Normal (03/13/21 12:51 RBC Morph) AM) [facility] CenterDcnyrvrQRHFVTWTFV0002-93-76 06:51:00 Test Item Value Reference Range Interpretation Comments Plt Morph (test code = Normal (03/13/21 12:51 Plt Morph) AM) [facility] CenterFrrvzprQGQOPTROUN2167-20-23 06:51:00 Test Item Value Reference Range Interpretation Comments Segs (test code = Segs) 51.3 45.0-75.0 [facility] CenterBcpdqxdIPYWLVVGRL4998-40-91 06:51:00 Test Item Value Reference Range Interpretation Comments Lymphocytes (test code = Lymphocytes) 36.0 20.0-40.0 [facility] CenterSteqrtoGGOLWUNCSO5081-95-56 06:51:00 Test Item Value Reference Range Interpretation Comments Monocytes (test code = Monocytes) 10.1 2.0-12.0 [facility] CenterHipofjsPWLXVKNURT8426-17-90 06:51:00 Test Item Value Reference Range Interpretation Comments Eosinophils (test code = 1.6 See_Comment [A utomated message] The Eosinophils) system which ge nerated this result tra nsmitted reference range : <=4.0. The reference r abdifatah was not used to int erpret this result as normal/abnormal . [facility] CenterKcpiqskMCJCSASKGI4278-24-76 06:51:00 Test Item Value Reference Range Interpretation Comments Basophils (test code = 1.0 See_Comment [Aut omated message] The Basophils) system which ge nerated this result tra nsmitted reference range : <=1.0. The reference r abdifatah was not used to int erpret this result as normal/abnormal . [facility] CenterHzsfkaxUQULRKBFKG4465-66-91 06:51:00 Test Item Value Reference Range Interpretation Comments Neutrophils # (test code = Neutrophils 3.0 1.5-8.1 #) [facility] CenterFpvjwljRARFCNLUKB4666-39-50 06:51:00 Test Item Value Reference Range Interpretation Comments Lymphocytes # (test code = Lymphocytes 2.1 1.0-5.5 #) [facility] CenterJthnptbPRLTZJKTZX1051-48-51 06:51:00 Test Item Value Reference Range Interpretation Comments Monocytes # (test code 0.6 See_Comment [Aut omated message] The = Monocytes #) system which generated this result tra nsmitted reference range : <=0.8. The reference r abdifatah was not used to int erpret this result as normal/abnormal . [facility] CenterJlthnckVEYRPAPDVH0226-63-22 06:51:00 Test Item Value Reference Range Interpretation Comments Eosinophils # (test code 0.1 See_Comment [A utomated message] The = Eosinophils #) system whic h generated this result tra nsmitted reference range : <=0.5. The reference r abdifatah was not used to int erpret this result as normal/abnormal . [facility] CenterFkznvkfISRBJLYFOB1755-33-62 06:51:00 Test Item Value Reference Range Interpretation Comments Basophils # (test code 0.1 See_Comment [Aut omated message] The = Basophils #) system which generated this result tra nsmitted reference range : <=0.2. The reference r abdifatah was not used to int erpret this result as normal/abnormal . [facility] CenterMoktkzlYRLVNPFERW0991-78-07 06:51:00 Test Item Value Reference Range Interpretation Comments WBC (test code = WBC) 5.9 3.7-10.4 [facility] CenterNkozyumUJDICGYIPS7886-64-79 06:51:00 Test Item Value Reference Range Interpretation Comments RBC (test code = RBC) 4.12 4.20-5.40 [facility] CenterOyryvfiCRYKBUAMAR3873-88-51 06:51:00 Test Item Value Reference Range Interpretation Comments Hgb (test code = Hgb) 11.0 12.0-16.0 [facility] CenterKpehwzdNKFIYBDSHO6367-83-42 06:51:00 Test Item Value Reference Range Interpretation Comments Hct (test code = Hct) 33.9 36.0-48.0 [facility] CenterQteexayWBUTPNWJCR7950-21-52 06:51:00 Test Item Value Reference Range Interpretation Comments MCV (test code = MCV) 82.1 80.0-98.0 [facility] CenterQnbteijORUHHPGCHO9178-09-36 06:51:00 Test Item Value Reference Range Interpretation Comments MCH (test code = MCH) 26.6 pg 27.0-31.0 [facility] CenterMznuowkVKMALHBLNX5346-56-26 06:51:00 Test Item Value Reference Range Interpretation Comments MCHC (test code = MCHC) 32.4 32.0-36.0 [facility] CenterXcjcdfdMNDCQSEIBC8180-82-78 06:51:00 Test Item Value Reference Range Interpretation Comments RDW (test code = RDW) 16.9 11.5-14.5 [place] 657681-11-16 06:51:00 Test Item Value Reference Range Interpretation Comments Platelet (test code = Platelet) 463 133-450 [facility] CenterJmdkqndWXNIUGMQBH6537-07-63 06:51:00 Test Item Value Reference Range Interpretation Comments MPV (test code = MPV) 8.0 7.4-10.4 [facility] CenterMjfbdwzPCDKTCYXRI9236-95-12 12:10:00 Test Item Value Reference Range Interpretation Comments Eosinophils # (test code 0.1 See_Comment [A utomated message] The = Eosinophils #) system whic h generated this result tra nsmitted reference range : <=0.5. The reference r abdifatah was not used to int erpret this result as normal/abnormal . [facility] CenterEuwdwvxMKTGDBGSRA4990-93-53 12:21:00 Test Item Value Reference Range Interpretation Comments RBC Morph (test code = Normal (03/09/21 6:21 RBC Morph) AM) [facility] CenterQufthgaYEUMWYKHNU3996-27-86 12:21:00 Test Item Value Reference Range Interpretation Comments Plt Morph (test code = Normal (03/09/21 6:21 Plt Morph) AM) [facility] CenterChltitzIGJILTQMJL4294-88-94 11:55:00 Test Item Value Reference Range Interpretation Comments Basophils # (test code 0.1 See_Comment [Aut omated message] The = Basophils #) system which generated this result tra nsmitted reference range : <=0.2. The reference r abdifatah was not used to int erpret this result as normal/abnormal . [facility] CenterNlhzkrpVQGRMFISLE2120-68-01 11:55:00 Test Item Value Reference Range Interpretation Comments Bands (test code = 0.0 See_Comment [Automat ed message] The Bands) system which ge nerated this result transmit gill reference range : <=11.0. The reference r abdifatah was not used to interpr et this result as len l/abnormal. [facility] CenterHkifjriCYPPWDUOTO4028-86-67 11:55:00 Test Item Value Reference Range Interpretation Comments Atypical Lymphs (test code = Atypical 0.0 Lymphs) [facility] CenterMdcglyiAQKOTIBTMR8478-75-49 11:55:00 Test Item Value Reference Range Interpretation Comments NRBC (test code = NRBC) 1 [facility] CenterKlukagmEXVBULORJO9690-74-11 11:55:00 Test Item Value Reference Range Interpretation Comments Plt Morph (test code = Normal (03/06/21 5:55 Plt Morph) AM) [place] 657681-11-09 11:55:00 Test Item Value Reference Range Interpretation Comments Anisocyte (test code = 1+ *ABN*(03/06/21 Anisocyte) 5:55 AM) [place] 657681-11-09 11:55:00 Test Item Value Reference Range Interpretation Comments Hypochrom (test code = 1+ (03/06/21 5:55 AM) Hypochrom) [place] 780161-11-07 15:37:00 Test Item Value Reference Range Interpretation Comments Glucose Lvl (test code = Glucose Lvl) 86 70-99 [place] 780161-11-07 15:37:00 Test Item Value Reference Range Interpretation Comments BUN (test code = BUN) 15 7-22 [place] 780161-11-07 15:37:00 Test Item Value Reference Range Interpretation Comments Creatinine Lvl (test code = Creatinine 0.56 0.50-1.40 Lvl) [place]0161-11-07 15:37:00 Test Item Value Reference Range Interpretation Comments Sodium Lvl (test code = Sodium Lvl) 140 135-145 [place] 780161-11-07 15:37:00 Test Item Value Reference Range Interpretation Comments Potassium Lvl (test code = Potassium 3.7 3.5-5.1 Lvl) [place] 780161-11-07 15:37:00 Test Item Value Reference Range Interpretation Comments Chloride Lvl (test code = Chloride Lvl) 106 95-109 [place] 780161-11-07 15:37:00 Test Item Value Reference Range Interpretation Comments CO2 (test code = CO2) 27 24-32 [place] 780161-11-07 15:37:00 Test Item Value Reference Range Interpretation Comments Calcium Lvl (test code = Calcium Lvl) 9.9 8.5-10.5 [place] 780161-11-07 15:37:00 Test Item Value Reference Range Interpretation Comments AGAP (test code = AGAP) 10.7 10.0-20.0 [place] 780161-11-07 15:37:00 Test Item Value Reference Range Interpretation Comments eGFR (test code = eGFR) 104 [place] 780161-11-07 05:59:00 Test Item Value Reference Range Interpretation Comments Glucose Lvl (test code = Glucose Lvl) 106 70-99 [place] 780161-11-07 05:59:00 Test Item Value Reference Range Interpretation Comments BUN (test code = BUN) 12 7-22 [place] 780161-11-07 05:59:00 Test Item Value Reference Range Interpretation Comments Creatinine Lvl (test code = Creatinine 0.47 0.50-1.40 Lvl) [place] 780161-11-07 05:59:00 Test Item Value Reference Range Interpretation Comments Sodium Lvl (test code = Sodium Lvl) 135 135-145 [place] 780161-11-07 05:59:00 Test Item Value Reference Range Interpretation Comments Potassium Lvl (test code = Potassium 5.3 3.5-5.1 Lvl) [place] 780161-11-07 05:59:00 Test Item Value Reference Range Interpretation Comments Chloride Lvl (test code = Chloride Lvl) 107 95-109 [place] 780161-11-07 05:59:00 Test Item Value Reference Range Interpretation Comments CO2 (test code = CO2) 21 24-32 [place] 780161-11-07 05:59:00 Test Item Value Reference Range Interpretation Comments AGAP (test code = AGAP) 12.3 10.0-20.0 [place] 780161-11-07 05:59:00 Test Item Value Reference Range Interpretation Comments Calcium Lvl (test code = Calcium Lvl) 10.4 8.5-10.5 [place] 780161-11-07 05:59:00 Test Item Value Reference Range Interpretation Comments eGFR (test code = eGFR) 111 [place] 657681-11-07 05:59:00 Test Item Value Reference Range Interpretation Comments Segs (test code = Segs) 80.4 45.0-75.0 [place] 657681-11-07 05:59:00 Test Item Value Reference Range Interpretation Comments Lymphocytes (test code = Lymphocytes) 13.5 20.0-40.0 [place] 657681-11-07 05:59:00 Test Item Value Reference Range Interpretation Comments Monocytes (test code = Monocytes) 5.7 2.0-12.0 [place] 657681-11-07 05:59:00 Test Item Value Reference Range Interpretation Comments Eosinophils (test code = 0.1 See_Comment [A utomated message] The Eosinophils) system which ge nerated this result tra nsmitted reference range : <=4.0. The reference r abdifatah was not used to int erpret this result as normal/abnormal . [place] 657681-11-07 05:59:00 Test Item Value Reference Range Interpretation Comments Basophils (test code = 0.3 See_Comment [Aut omated message] The Basophils) system which ge nerated this result tra nsmitted reference range : <=1.0. The reference r abdifatah was not used to int erpret this result as normal/abnormal . [facility] CenterCnxykozLFXWIRLSGH9356-64-69 05:59:00 Test Item Value Reference Range Interpretation Comments Neutrophils # (test code = Neutrophils 6.3 1.5-8.1 #) [facility] CenterKqafvdfHNCJQDQDRA4027-83-80 05:59:00 Test Item Value Reference Range Interpretation Comments Lymphocytes # (test code = Lymphocytes 1.1 1.0-5.5 #) [facility] CenterTublmvsMJXREXRMAW0366-16-23 05:59:00 Test Item Value Reference Range Interpretation Comments Monocytes # (test code 0.4 See_Comment [Aut omated message] The = Monocytes #) system which generated this result tra nsmitted reference range : <=0.8. The reference r abdifatah was not used to int erpret this result as normal/abnormal . [facility] CenterZosxbbsZJAMAGGZKU3054-41-77 05:59:00 Test Item Value Reference Range Interpretation Comments WBC (test code = WBC) 7.8 3.7-10.4 [place] 657681-11-07 05:59:00 Test Item Value Reference Range Interpretation Comments RBC (test code = RBC) 4.63 4.20-5.40 [place] 657681-11-07 05:59:00 Test Item Value Reference Range Interpretation Comments Hgb (test code = Hgb) 12.5 12.0-16.0 [place] 657681-11-07 05:59:00 Test Item Value Reference Range Interpretation Comments Hct (test code = Hct) 38.8 36.0-48.0 [place] [address]-11-07 05:59:00 Test Item Value Reference Range Interpretation Comments MCV (test code = MCV) 83.9 80.0-98.0 [place] 657681-11-07 05:59:00 Test Item Value Reference Range Interpretation Comments MCH (test code = MCH) 27.0 pg 27.0-31.0 [place] 657681-11-07 05:59:00 Test Item Value Reference Range Interpretation Comments MCHC (test code = MCHC) 32.2 32.0-36.0 [place] 657681-11-07 05:59:00 Test Item Value Reference Range Interpretation Comments RDW (test code = RDW) 16.6 11.5-14.5 [place] 19500-11-07 05:59:00 Test Item Value Reference Range Interpretation Comments Platelet (test code = Platelet) 372 459-450 [place] 657681-11-07 05:59:00 Test Item Value Reference Range Interpretation Comments MPV (test code = MPV) 8.2 7.4-10.4 [place] 780161-11-06 11:22:00 Test Item Value Reference Range Interpretation Comments Glucose Lvl (test code = Glucose Lvl) 83 70-99 [facility]2021-11-06 11:22:00 Test Item Value Reference Range Interpretation Comments BUN (test code = BUN) 10 7-22 [place] 780161-11-06 11:22:00 Test Item Value Reference Range Interpretation Comments Creatinine Lvl (test code = Creatinine 0.42 0.50-1.40 Lvl) [place] 780161-11-06 11:22:00 Test Item Value Reference Range Interpretation Comments Sodium Lvl (test code = Sodium Lvl) 142 135-145 [place] 780161-11-06 11:22:00 Test Item Value Reference Range Interpretation Comments Potassium Lvl (test code = Potassium 3.9 3.5-5.1 Lvl) [place] 780161-11-06 11:22:00 Test Item Value Reference Range Interpretation Comments Chloride Lvl (test code = Chloride Lvl) 111 95-109 [facility]2021-11-06 11:22:00 Test Item Value Reference Range Interpretation Comments CO2 (test code = CO2) 25 24-32 [place] 780161-11-06 11:22:00 Test Item Value Reference Range Interpretation Comments Calcium Lvl (test code = Calcium Lvl) 9.9 8.5-10.5 [place] 780161-11-06 11:22:00 Test Item Value Reference Range Interpretation Comments AGAP (test code = AGAP) 9.9 10.0-20.0 [place] 780161-11-06 11:22:00 Test Item Value Reference Range Interpretation Comments eGFR (test code = eGFR) 115 [place] 657681-11-06 11:22:00 Test Item Value Reference Range Interpretation Comments Segs (test code = Segs) 46.7 45.0-75.0 [place] 657681-11-06 11:22:00 Test Item Value Reference Range Interpretation Comments Lymphocytes (test code = Lymphocytes) 38.0 20.0-40.0 [place] 657681-11-06 11:22:00 Test Item Value Reference Range Interpretation Comments Monocytes (test code = Monocytes) 9.2 2.0-12.0 [place] 657681-11-06 11:22:00 Test Item Value Reference Range Interpretation Comments Eosinophils (test code = 5.0 See_Comment [A utomated message] The Eosinophils) system which nerated this result tra nsmitted reference range : <=4.0. The reference r abdifatah was not used to int erpret this result as normal/abnormal . [place] 657681-11-06 11:22:00 Test Item Value Reference Range Interpretation Comments Basophils (test code = 1.1 See_Comment [Aut omated message] The Basophils) system which ge nerated this result tra nsmitted reference range : <=1.0. The reference r abdifatah was not used to int erpret this result as normal/abnormal . [place] 657681-11-06 11:22:00 Test Item Value Reference Range Interpretation Comments Neutrophils # (test code = Neutrophils 1.9 1.5-8.1 #) [place] 657681-11-06 11:22:00 Test Item Value Reference Range Interpretation Comments Lymphocytes # (test code = Lymphocytes 1.6 1.0-5.5 #) [place] 657681-11-06 11:22:00 Test Item Value Reference Range Interpretation Comments Monocytes # (test code 0.4 See_Comment [Aut omated message] The = Monocytes #) system which generated this result tra nsmitted reference range : <=0.8. The reference r abdifatah was not used to int erpret this result as normal/abnormal . [facility] CenterWxqiiseRSOSATAKVO2930-39-70 11:22:00 Test Item Value Reference Range Interpretation Comments Eosinophils # (test code 0.2 See_Comment [A utomated message] The = Eosinophils #) system whic h generated this result tra nsmitted reference range : <=0.5. The reference r abdifatah was not used to int erpret this result as normal/abnormal . [facility] CenterIibjgvoUFAEUIFQBM3200-61-40 11:22:00 Test Item Value Reference Range Interpretation Comments WBC (test code = WBC) 4.1 3.7-10.4 [facility] CenterMozkiykLNKECGYMMA8723-22-36 11:22:00 Test Item Value Reference Range Interpretation Comments RBC (test code = RBC) 4.31 4.20-5.40 [place] 657681-11-06 11:22:00 Test Item Value Reference Range Interpretation Comments Hgb (test code = Hgb) 11.6 12.0-16.0 [facility] CenterRyhldfxUKQOBKURHC9852-10-29 11:22:00 Test Item Value Reference Range Interpretation Comments Hct (test code = Hct) 35.9 36.0-48.0 [place] 657681-11-06 11:22:00 Test Item Value Reference Range Interpretation Comments MCV (test code = MCV) 83.2 80.0-98.0 [place] 657681-11-06 11:22:00 Test Item Value Reference Range Interpretation Comments MCH (test code = MCH) 26.9 pg 27.0-31.0 [place] 657681-11-06 11:22:00 Test Item Value Reference Range Interpretation Comments MCHC (test code = MCHC) 32.3 32.0-36.0 [place] 657681-11-06 11:22:00 Test Item Value Reference Range Interpretation Comments RDW (test code = RDW) 16.7 11.5-14.5 [place] 657681-11-06 11:22:00 Test Item Value Reference Range Interpretation Comments Platelet (test code = Platelet) 317 133-450 [place] 657681-11-06 11:22:00 Test Item Value Reference Range Interpretation Comments MPV (test code = MPV) 8.6 7.4-10.4 [place] 657681-11-05 10:15:00 Test Item Value Reference Range Interpretation Comments Neutrophils # (test code = Neutrophils 2.5 1.5-8.1 #) [place] 657681-11-05 10:15:00 Test Item Value Reference Range Interpretation Comments Lymphocytes # (test code = Lymphocytes 1.8 1.0-5.5 #) [place] 657681-11-05 10:15:00 Test Item Value Reference Range Interpretation Comments Monocytes # (test code 0.5 See_Comment [Aut omated message] The = Monocytes #) system which generated this result tra nsmitted reference range : <=0.8. The reference r abdifatah was not used to int erpret this result as normal/abnormal . [place] 657681-11-05 10:15:00 Test Item Value Reference Range Interpretation Comments Eosinophils # (test code 0.2 See_Comment [A utomated message] The = Eosinophils #) system whic h generated this result tra nsmitted reference range : <=0.5. The reference r abdifatah was not used to int erpret this result as normal/abnormal . [place] 657681-11-05 10:15:00 Test Item Value Reference Range Interpretation Comments Basophils # (test code 0.1 See_Comment [Aut omated message] The = Basophils #) system which generated this result tra nsmitted reference range : <=0.2. The reference r abdifatah was not used to int erpret this result as normal/abnormal . [place] 657681-11-05 10:15:00 Test Item Value Reference Range Interpretation Comments WBC (test code = WBC) 5.1 3.7-10.4 [place] 657681-11-05 10:15:00 Test Item Value Reference Range Interpretation Comments RBC (test code = RBC) 4.31 4.20-5.40 [place] 657681-11-05 10:15:00 Test Item Value Reference Range Interpretation Comments Hgb (test code = Hgb) 11.5 12.0-16.0 [facility] CenterXhkrcqhGAVVKIHASL2694-17-81 10:15:00 Test Item Value Reference Range Interpretation Comments Hct (test code = Hct) 36.1 36.0-48.0 [place] 657681-11-05 10:15:00 Test Item Value Reference Range Interpretation Comments MCV (test code = MCV) 83.9 80.0-98.0 [place] 657681-11-05 10:15:00 Test Item Value Reference Range Interpretation Comments MCH (test code = MCH) 26.8 pg 27.0-31.0 [place] 657681-11-05 10:15:00 Test Item Value Reference Range Interpretation Comments MCHC (test code = MCHC) 32.0 32.0-36.0 [place] 657681-11-05 10:15:00 Test Item Value Reference Range Interpretation Comments RDW (test code = RDW) 16.8 11.5-14.5 [place] 657681-11-05 10:15:00 Test Item Value Reference Range Interpretation Comments Platelet (test code = Platelet) 319 133-450 [facility] CenterUzmjzomEDPZWMMCUN3386-36-43 10:15:00 Test Item Value Reference Range Interpretation Comments MPV (test code = MPV) 8.3 7.4-10.4 [place] 657681-11-05 10:15:00 Test Item Value Reference Range Interpretation Comments Segs (test code = Segs) 48.8 45.0-75.0 [place] 657681-11-05 10:15:00 Test Item Value Reference Range Interpretation Comments Lymphocytes (test code = Lymphocytes) 35.6 20.0-40.0 [place] 657681-11-05 10:15:00 Test Item Value Reference Range Interpretation Comments Monocytes (test code = Monocytes) 9.7 2.0-12.0 [place] 657681-11-05 10:15:00 Test Item Value Reference Range Interpretation Comments Eosinophils (test code = 4.8 See_Comment [A utomated message] The Eosinophils) system which ge nerated this result tra nsmitted reference range : <=4.0. The reference r abdifatah was not used to int erpret this result as normal/abnormal . [facility] HospitalTrowidnVXWUYMBBAR9999-56-56 10:15:00 Test Item Value Reference Range Interpretation Comments Basophils (test code = 1.1 See_Comment [Aut omated message] The Basophils) system which ge nerated this result tra nsmitted reference range : <=1.0. The reference r abdifatah was not used to int erpret this result as normal/abnormal . [facility] HospitalBablic FBDLSOF4941-00-17 11:36:00 Test Item Value Reference Range Interpretation Comments ABO/Rh (test code = ABO/Rh) A POS [facility] QQAPMND8699-04-94 11:36:00 Test Item Value Reference Range Interpretation Comments Antibody Scrn (test Negative (03/01/21 6:36 code = Antibody Scrn) AM) [facility] HospitalPjabqmhGVHTFYXFVZ5811-38-77 10:55:00 Test Item Value Reference Range Interpretation Comments Coronavirus (COVID-19) Not Detected (03/01/21 KASSY (test code = 5:55 AM) Coronavirus (COVID-19) KASSY) [facility] CenterUzeylgeVHSHSRQWXR3099-54-51 06:29:00 Test Item Value Reference Range Interpretation Comments Eosinophils # (test code 0.2 See_Comment [A utomated message] The = Eosinophils #) system whic h generated this result tra nsmitted reference range : <=0.5. The reference r abdifatah was not used to int erpret this result as normal/abnormal . [facility] HospitalSztzxmcKXRGJONBMJ2779-92-45 06:29:00 Test Item Value Reference Range Interpretation Comments Basophils # (test code 0.1 See_Comment [Aut omated message] The = Basophils #) system which generated this result tra nsmitted reference range : <=0.2. The reference r abdifatah was not used to int erpret this result as normal/abnormal . [facility] HospitalJkceynoWIDOMYFFWZ4773-39-82 06:29:00 Test Item Value Reference Range Interpretation Comments PT (test code = PT) 13.4 s 12.0-14.7 [facility] CenterGkkegvzOLHWBXBOVT2487-31-74 06:29:00 Test Item Value Reference Range Interpretation Comments INR (test code = INR) 1.03 1 0.85-1.17 [facility] CenterCygmflaLRGLDRAOJZ6255-66-59 06:29:00 Test Item Value Reference Range Interpretation Comments PTT (test code = PTT) 30.8 s 22.9-35.8 [place] 780161-09-27 10:36:00 Test Item Value Reference Range Interpretation Comments Glucose Lvl (test code = Glucose Lvl) 85 70-99 [place] 780161-09-27 10:36:00 Test Item Value Reference Range Interpretation Comments BUN (test code = BUN) 19 7-22 [place] 780161-09-27 10:36:00 Test Item Value Reference Range Interpretation Comments Creatinine Lvl (test code = Creatinine 0.36 0.50-1.40 Lvl) [place] 780161-09-27 10:36:00 Test Item Value Reference Range Interpretation Comments Sodium Lvl (test code = Sodium Lvl) 139 135-145 [place] 780161-09-27 10:36:00 Test Item Value Reference Range Interpretation Comments Potassium Lvl (test code = Potassium 4.5 3.5-5.1 Lvl) [place] 780161-09-27 10:36:00 Test Item Value Reference Range Interpretation Comments Chloride Lvl (test code = Chloride Lvl) 106 95-109 [place] 780161-09-27 10:36:00 Test Item Value Reference Range Interpretation Comments CO2 (test code = CO2) 23 24-32 [place] 780161-09-27 10:36:00 Test Item Value Reference Range Interpretation Comments Calcium Lvl (test code = Calcium Lvl) 10.9 8.5-10.5 [place] 780161-09-27 10:36:00 Test Item Value Reference Range Interpretation Comments AGAP (test code = AGAP) 14.5 10.0-20.0 [place] 780161-09-27 10:36:00 Test Item Value Reference Range Interpretation Comments eGFR (test code = eGFR) 121 [place] 657681-09-27 10:36:00 Test Item Value Reference Range Interpretation Comments WBC X 10x3 (test code = WBC X 10x3) 8.0 3.7-10.4 [place] 657681-09-27 10:36:00 Test Item Value Reference Range Interpretation Comments RBC X 10x6 (test code = RBC X 10x6) 3.22 4.20-5.40 [place] 657681-09-27 10:36:00 Test Item Value Reference Range Interpretation Comments Hgb (test code = Hgb) 9.3 12.0-16.0 [facility] CenterKitfvqtEKQKIRIAZZ9036-17-27 10:36:00 Test Item Value Reference Range Interpretation Comments Hct (test code = Hct) 29.3 36.0-48.0 [facility] CenterOlrljcgGVSNYNAKWJ1683-26-27 10:36:00 Test Item Value Reference Range Interpretation Comments MCV (test code = MCV) 91.0 80.0-98.0 [facility] CenterMsjwohfETADJXALVO9094-33-07 10:36:00 Test Item Value Reference Range Interpretation Comments MCH (test code = MCH) 29.0 pg 27.0-31.0 [facility] CenterHepsbynUHLOMHBVFN0725-09-16 10:36:00 Test Item Value Reference Range Interpretation Comments MCHC (test code = MCHC) 31.8 32.0-36.0 [facility] CenterCmffimrSZQVQIZZMR1669-33-49 10:36:00 Test Item Value Reference Range Interpretation Comments RDW (test code = RDW) 16.1 11.5-14.5 [facility] CenterZjpaistKVNEFBNHCF2194-12-00 10:36:00 Test Item Value Reference Range Interpretation Comments Platelet (test code = Platelet) 1037 133-450 [facility] CenterKbbtihhEQPJRJVYUY6402-88-87 10:36:00 Test Item Value Reference Range Interpretation Comments MPV (test code = MPV) 7.0 7.4-10.4 [facility] CenterAgfkqhpHFCJKLNHPY8562-65-62 10:36:00 Test Item Value Reference Range Interpretation Comments RBC Morph (test code = Normal (01/22/21 5:36 RBC Morph) AM) [facility] CenterUtkbimsGKZWUENPTF8084-38-54 10:36:00 Test Item Value Reference Range Interpretation Comments Plt Morph (test code = Normal (01/22/21 5:36 Plt Morph) AM) [facility] CenterLupbxlvTZGYXGKQPV9554-31-67 10:36:00 Test Item Value Reference Range Interpretation Comments Segs (test code = Segs) 62.7 45.0-75.0 [facility] CenterYijdersWCFJFFOCNA1292-60-20 10:36:00 Test Item Value Reference Range Interpretation Comments Lymphocytes (test code = Lymphocytes) 25.7 20.0-40.0 [facility] CenterDdthvnbWYSOBQZFTO5641-68-17 10:36:00 Test Item Value Reference Range Interpretation Comments Monocytes (test code = Monocytes) 8.5 2.0-12.0 [place] 657681-09-27 10:36:00 Test Item Value Reference Range Interpretation Comments Eosinophils (test code = 2.4 See_Comment [A utomated message] The Eosinophils) system which ge nerated this result tra nsmitted reference range : <=4.0. The reference r abdifatah was not used to int erpret this result as normal/abnormal . [place] 657681-09-27 10:36:00 Test Item Value Reference Range Interpretation Comments Basophils (test code = 0.7 See_Comment [Aut omated message] The Basophils) system which ge nerated this result tra nsmitted reference range : <=1.0. The reference r abdifatah was not used to int erpret this result as normal/abnormal . [place] 657681-09-27 10:36:00 Test Item Value Reference Range Interpretation Comments Neutrophils # (test code = Neutrophils 5.0 1.5-8.1 #) [facility] CenterTsijnoqDEDWFENQSC5706-47-19 10:36:00 Test Item Value Reference Range Interpretation Comments Lymphocytes # (test code = Lymphocytes 2.0 1.0-5.5 #) [facility] CenterYhlksofQKLZQJPSSM0155-11-11 10:36:00 Test Item Value Reference Range Interpretation Comments Monocytes # (test code 0.7 See_Comment [Aut omated message] The = Monocytes #) system which generated this result tra nsmitted reference range : <=0.8. The reference r abdifatah was not used to int erpret this result as normal/abnormal . [place] 657681-09-27 10:36:00 Test Item Value Reference Range Interpretation Comments Eosinophils # (test code 0.2 See_Comment [A utomated message] The = Eosinophils #) system whic h generated this result tra nsmitted reference range : <=0.5. The reference r abdifatah was not used to int erpret this result as normal/abnormal . [place] 657681-09-27 10:36:00 Test Item Value Reference Range Interpretation Comments Basophils # (test code 0.1 See_Comment [Aut omated message] The = Basophils #) system which generated this result tra nsmitted reference range : <=0.2. The reference r abdifatah was not used to int erpret this result as normal/abnormal . [facility] HospitalBldvnbzSURTVGYIDH9130-03-44 18:34:00 Test Item Value Reference Range Interpretation Comments Vanco Lvl (test code = Vanco Lvl) 17.5 [facility]2021-09-24 07:59:00 Test Item Value Reference Range Interpretation Comments Glucose Lvl (test code = Glucose Lvl) 61 70-99 [place] 780161-09-24 07:59:00 Test Item Value Reference Range Interpretation Comments BUN (test code = BUN) 15 7-22 [place] 780161-09-24 07:59:00 Test Item Value Reference Range Interpretation Comments Creatinine Lvl (test code = Creatinine 0.20 0.50-1.40 Lvl) [facility]2021-09-24 07:59:00 Test Item Value Reference Range Interpretation Comments Sodium Lvl (test code = Sodium Lvl) 145 135-145 [facility]2021-09-24 07:59:00 Test Item Value Reference Range Interpretation Comments Potassium Lvl (test code = Potassium 3.8 3.5-5.1 Lvl) [place] 780161-09-24 07:59:00 Test Item Value Reference Range Interpretation Comments Chloride Lvl (test code = Chloride Lvl) 112 95-109 [facility]2021-09-24 07:59:00 Test Item Value Reference Range Interpretation Comments CO2 (test code = CO2) 22 24-32 [place] 780161-09-24 07:59:00 Test Item Value Reference Range Interpretation Comments Calcium Lvl (test code = Calcium Lvl) 8.9 8.5-10.5 [place] 780161-09-24 07:59:00 Test Item Value Reference Range Interpretation Comments AGAP (test code = AGAP) 14.8 10.0-20.0 [place] 780161-09-24 07:59:00 Test Item Value Reference Range Interpretation Comments eGFR (test code = eGFR) 148 [place] 657681-09-24 07:59:00 Test Item Value Reference Range Interpretation Comments WBC X 10x3 (test code = WBC X 10x3) 9.0 3.7-10.4 [place] 657681-09-24 07:59:00 Test Item Value Reference Range Interpretation Comments RBC (test code = RBC) 2.43 4.20-5.40 [place] 657681-09-24 07:59:00 Test Item Value Reference Range Interpretation Comments Hgb (test code = Hgb) 7.4 12.0-16.0 [place] 657681-09-24 07:59:00 Test Item Value Reference Range Interpretation Comments Hct (test code = Hct) 22.4 36.0-48.0 [place] 657681-09-24 07:59:00 Test Item Value Reference Range Interpretation Comments MCV (test code = MCV) 92.3 80.0-98.0 [place] 657681-09-24 07:59:00 Test Item Value Reference Range Interpretation Comments MCH (test code = MCH) 30.4 pg 27.0-31.0 [place] 657681-09-24 07:59:00 Test Item Value Reference Range Interpretation Comments MCHC (test code = MCHC) 32.9 32.0-36.0 [place] 657681-09-24 07:59:00 Test Item Value Reference Range Interpretation Comments RDW (test code = RDW) 16.1 11.5-14.5 [place] 657681-09-24 07:59:00 Test Item Value Reference Range Interpretation Comments Platelet (test code = Platelet) 501 133-450 [facility] CenterDkxmfiqGGNQGGUFZG0910-72-94 07:59:00 Test Item Value Reference Range Interpretation Comments MPV (test code = MPV) 7.3 7.4-10.4 [facility] CenterTijqfpgXOXJJSNRIZ3101-02-42 07:59:00 Test Item Value Reference Range Interpretation Comments Neutrophils # (test code = Neutrophils 6.4 1.5-8.1 #) [place] 657681-09-24 07:59:00 Test Item Value Reference Range Interpretation Comments Lymphocytes # (test code = Lymphocytes 1.7 1.0-5.5 #) [place] 657681-09-24 07:59:00 Test Item Value Reference Range Interpretation Comments Monocytes # (test code 0.4 See_Comment [Aut omated message] The = Monocytes #) system which generated this result tra nsmitted reference range : <=0.8. The reference r abdifatah was not used to int erpret this result as normal/abnormal . [facility] CenterUcnkyvgCVCANTDLRQ4880-36-55 07:59:00 Test Item Value Reference Range Interpretation Comments Eosinophils # (test code 0.4 See_Comment [A utomated message] The = Eosinophils #) system whic h generated this result tra nsmitted reference range : <=0.5. The reference r abdifatah was not used to int erpret this result as normal/abnormal . [facility] CenterMwuumkjPFIFJAGQQZ9119-07-06 07:59:00 Test Item Value Reference Range Interpretation Comments Basophils # (test code 0.1 See_Comment [Aut omated message] The = Basophils #) system which generated this result tra nsmitted reference range : <=0.2. The reference r abdifatah was not used to int erpret this result as normal/abnormal . [facility] CenterAozfjqtMSJFVXBEQD7338-38-74 07:59:00 Test Item Value Reference Range Interpretation Comments Segs (test code = Segs) 71.0 45.0-75.0 [place] 657681-09-24 07:59:00 Test Item Value Reference Range Interpretation Comments Bands (test code = 0.0 See_Comment [Automat ed message] The Bands) system which ge nerated this result transmit gill reference range : <=11.0. The reference r abdifatah was not used to interpr et this result as len l/abnormal. [facility] CenterHusfottHXWEVAQBNS7603-50-01 07:59:00 Test Item Value Reference Range Interpretation Comments Lymphocytes (test code = Lymphocytes) 19.0 20.0-40.0 [place] 657681-09-24 07:59:00 Test Item Value Reference Range Interpretation Comments Monocytes (test code = Monocytes) 5.0 2.0-12.0 [facility] CenterOtrhcywULVQPSCUZJ8154-04-47 07:59:00 Test Item Value Reference Range Interpretation Comments Eosinophils (test code = 4.0 See_Comment [A utomated message] The Eosinophils) system which ge nerated this result tra nsmitted reference range : <=4.0. The reference r abdifatah was not used to int erpret this result as normal/abnormal . [facility] CenterTjcmdeoNWYRITFTPB4217-02-13 07:59:00 Test Item Value Reference Range Interpretation Comments Basophils (test code = 1.0 See_Comment [Aut omated message] The Basophils) system which ge nerated this result tra nsmitted reference range : <=1.0. The reference r abdifatah was not used to int erpret this result as normal/abnormal . [facility] CenterNmtpnsaBATPVTLCTH2425-35-97 07:59:00 Test Item Value Reference Range Interpretation Comments Atypical Lymphs (test code = Atypical 0.0 Lymphs) [facility] CenterKyfrzgjOVMKDUAHDU7640-18-47 07:59:00 Test Item Value Reference Range Interpretation Comments Plt Morph (test code = Normal (01/19/21 2:59 Plt Morph) AM) [facility] CenterMpclmukCZCDGLMVOC3303-60-82 07:59:00 Test Item Value Reference Range Interpretation Comments Tot Cell Ct (test code = Tot Cell Ct) 100 1 [facility] CenterPxmdrhlAJNJPOMXBS8124-34-37 07:59:00 Test Item Value Reference Range Interpretation Comments Anisocyte (test code = 1+ *ABN*(01/19/21 Anisocyte) 2:59 AM) [facility] CenterIwtqpmvEFJPBQDXBC7058-60-65 07:59:00 Test Item Value Reference Range Interpretation Comments Macrocyte (test code = 1+ *ABN*(01/19/21 Macrocyte) 2:59 AM) [facility] CenterYjwfdihHYAWIVPCCX9916-94-11 07:59:00 Test Item Value Reference Range Interpretation Comments Hypochrom (test code = 1+ (01/19/21 2:59 AM) Hypochrom) [facility] CenterXywzfdfHCYWKMFVBX3421-87-85 07:59:00 Test Item Value Reference Range Interpretation Comments Polychrom (test code = Moderate *ABN*(01/19/21 Polychrom) 2:59 AM) [facility] CenterGfuyupkZTRUMHTBXS9369-66-97 07:59:00 Test Item Value Reference Range Interpretation Comments Baso Stipplin (test code = Baso Occasional Stipplin) [facility] HospitalVipwjxcHYCBUBTKQH6328-67-09 07:59:00 Test Item Value Reference Range Interpretation Comments Vancomycin AUC (test code = Vancomycin no gt AUC) [facility]GtlfxcoRQIJJFSSXAMHL0674-72-80 15:05:00 Test Item Value Reference Range Interpretation Comments hCG Tot (test code = hCG Tot) 2 [facility]CHE[facility] [id number] 05:19:00 Test Item Value Reference Range Interpretation Comments Glucose Lvl (test code = Glucose Lvl) 131 70-99 [place] 780161-09-22 05:19:00 Test Item Value Reference Range Interpretation Comments BUN (test code = BUN) 21 7-22 [facility]2021-09-22 05:19:00 Test Item Value Reference Range Interpretation Comments Creatinine Lvl (test code = Creatinine 0.29 0.50-1.40 Lvl) [place] 780161-09-22 05:19:00 Test Item Value Reference Range Interpretation Comments Sodium Lvl (test code = Sodium Lvl) 142 135-145 [place] 780161-09-22 05:19:00 Test Item Value Reference Range Interpretation Comments Potassium Lvl (test code = Potassium 4.7 3.5-5.1 Lvl) [place] 780161-09-22 05:19:00 Test Item Value Reference Range Interpretation Comments Chloride Lvl (test code = Chloride Lvl) 108 95-109 [place] 780161-09-22 05:19:00 Test Item Value Reference Range Interpretation Comments CO2 (test code = CO2) 29 24-32 [place] 780161-09-22 05:19:00 Test Item Value Reference Range Interpretation Comments Calcium Lvl (test code = Calcium Lvl) 10.2 8.5-10.5 [place] 780161-09-22 05:19:00 Test Item Value Reference Range Interpretation Comments AGAP (test code = AGAP) 9.7 10.0-20.0 [place] 780161-09-22 05:19:00 Test Item Value Reference Range Interpretation Comments eGFR (test code = eGFR) 130 [place] 780161-09-22 05:19:00 Test Item Value Reference Range Interpretation Comments Magnesium Lvl (test code = Magnesium 2.1 1.8-2.4 Lvl) [place] 657681-09-22 05:19:00 Test Item Value Reference Range Interpretation Comments WBC (test code = WBC) 12.3 3.7-10.4 [place] 657681-09-22 05:19:00 Test Item Value Reference Range Interpretation Comments RBC (test code = RBC) 2.60 4.20-5.40 [place] 657681-09-22 05:19:00 Test Item Value Reference Range Interpretation Comments Hgb (test code = Hgb) 7.9 12.0-16.0 [facility] CenterTvfqernHJZVDVNTFD8054-18-85 05:19:00 Test Item Value Reference Range Interpretation Comments Hct (test code = Hct) 24.0 36.0-48.0 [facility] CenterTkeqnfdAJBACCWPBI8232-31-56 05:19:00 Test Item Value Reference Range Interpretation Comments MCV (test code = MCV) 92.6 80.0-98.0 [facility] CenterQyppigkYQGBSVSRCS4216-94-73 05:19:00 Test Item Value Reference Range Interpretation Comments MCH (test code = MCH) 30.4 pg 27.0-31.0 [facility] CenterGuuslilNHXATFCXFV0190-97-01 05:19:00 Test Item Value Reference Range Interpretation Comments MCHC (test code = MCHC) 32.9 32.0-36.0 [facility] CenterXidguibNDHEEVKONI1977-39-54 05:19:00 Test Item Value Reference Range Interpretation Comments RDW (test code = RDW) 16.0 11.5-14.5 [facility] CenterYrgacomZZCWQORKMB4835-34-38 05:19:00 Test Item Value Reference Range Interpretation Comments Platelet (test code = Platelet) 703 133-450 [facility] CenterOfewtyoGJVBEPUCLG5340-31-51 05:19:00 Test Item Value Reference Range Interpretation Comments MPV (test code = MPV) 7.3 7.4-10.4 [place] 657681-09-22 05:19:00 Test Item Value Reference Range Interpretation Comments Segs (test code = Segs) 76.3 45.0-75.0 [facility] CenterDggpisyHCRZWCVNSP5211-48-35 05:19:00 Test Item Value Reference Range Interpretation Comments Lymphocytes (test code = Lymphocytes) 13.0 20.0-40.0 [facility] CenterInuembmQCYCYPMYYM9288-11-78 05:19:00 Test Item Value Reference Range Interpretation Comments Monocytes (test code = Monocytes) 6.9 2.0-12.0 [place] 657681-09-22 05:19:00 Test Item Value Reference Range Interpretation Comments Eosinophils (test code = 3.1 See_Comment [A utomated message] The Eosinophils) system which ge nerated this result tra nsmitted reference range : <=4.0. The reference r abdifatah was not used to int erpret this result as normal/abnormal . [place] 657681-09-22 05:19:00 Test Item Value Reference Range Interpretation Comments Basophils (test code = 0.7 See_Comment [Aut omated message] The Basophils) system which ge nerated this result tra nsmitted reference range : <=1.0. The reference r abdifatah was not used to int erpret this result as normal/abnormal . [place] 657681-09-22 05:19:00 Test Item Value Reference Range Interpretation Comments Neutrophils # (test code = Neutrophils 9.3 1.5-8.1 #) [facility] CenterFkadbteLTVIUQJRNA3091-40-55 05:19:00 Test Item Value Reference Range Interpretation Comments Lymphocytes # (test code = Lymphocytes 1.6 1.0-5.5 #) [place] 657681-09-22 05:19:00 Test Item Value Reference Range Interpretation Comments Monocytes # (test code 0.8 See_Comment [Aut omated message] The = Monocytes #) system which generated this result tra nsmitted reference range : <=0.8. The reference r abdifatah was not used to int erpret this result as normal/abnormal . [place] 657681-09-22 05:19:00 Test Item Value Reference Range Interpretation Comments Eosinophils # (test code 0.4 See_Comment [A utomated message] The = Eosinophils #) system whic h generated this result tra nsmitted reference range : <=0.5. The reference r abdifatah was not used to int erpret this result as normal/abnormal . [place] 657681-09-22 05:19:00 Test Item Value Reference Range Interpretation Comments Basophils # (test code 0.1 See_Comment [Aut omated message] The = Basophils #) system which generated this result tra nsmitted reference range : <=0.2. The reference r abdifatah was not used to int erpret this result as normal/abnormal . [facility]2021-09-21 10:16:00 Test Item Value Reference Range Interpretation Comments Magnesium Lvl (test code = Magnesium 2.4 1.8-2.4 Lvl) [place] 780161-09-21 10:16:00 Test Item Value Reference Range Interpretation Comments Glucose Lvl (test code = Glucose Lvl) 152 70-99 [facility]2021-09-21 10:16:00 Test Item Value Reference Range Interpretation Comments BUN (test code = BUN) 20 7-22 [place] 780161-09-21 10:16:00 Test Item Value Reference Range Interpretation Comments Creatinine Lvl (test code = Creatinine 0.36 0.50-1.40 Lvl) [facility]2021-09-21 10:16:00 Test Item Value Reference Range Interpretation Comments Sodium Lvl (test code = Sodium Lvl) 143 135-145 [place] 780161-09-21 10:16:00 Test Item Value Reference Range Interpretation Comments Potassium Lvl (test code = Potassium 4.4 3.5-5.1 Lvl) [place] 780161-09-21 10:16:00 Test Item Value Reference Range Interpretation Comments Chloride Lvl (test code = Chloride Lvl) 110 95-109 [place] 780161-09-21 10:16:00 Test Item Value Reference Range Interpretation Comments CO2 (test code = CO2) 28 24-32 [place] 780161-09-21 10:16:00 Test Item Value Reference Range Interpretation Comments Calcium Lvl (test code = Calcium Lvl) 10.2 8.5-10.5 [facility]2021-09-21 10:16:00 Test Item Value Reference Range Interpretation Comments AGAP (test code = AGAP) 9.4 10.0-20.0 [facility]2021-09-21 10:16:00 Test Item Value Reference Range Interpretation Comments eGFR (test code = eGFR) 122 [place] 657681-09-21 10:16:00 Test Item Value Reference Range Interpretation Comments Segs (test code = Segs) 82.5 45.0-75.0 [place] 657681-09-21 10:16:00 Test Item Value Reference Range Interpretation Comments Lymphocytes (test code = Lymphocytes) 8.4 20.0-40.0 [place] 657681-09-21 10:16:00 Test Item Value Reference Range Interpretation Comments Monocytes (test code = Monocytes) 6.3 2.0-12.0 [place] 657681-09-21 10:16:00 Test Item Value Reference Range Interpretation Comments Eosinophils (test code = 2.5 See_Comment [A utomated message] The Eosinophils) system which ge nerated this result tra nsmitted reference range : <=4.0. The reference r abdifatah was not used to int erpret this result as normal/abnormal . [facility] CenterNtxraizBYMERHQUPO5299-09-86 10:16:00 Test Item Value Reference Range Interpretation Comments Basophils (test code = 0.3 See_Comment [Aut omated message] The Basophils) system which ge nerated this result tra nsmitted reference range : <=1.0. The reference r abdifatah was not used to int erpret this result as normal/abnormal . [facility] CenterThmbphaJBHQFEVLGR2673-53-27 10:16:00 Test Item Value Reference Range Interpretation Comments Neutrophils # (test code = Neutrophils 10.8 1.5-8.1 #) [place] 657681-09-21 10:16:00 Test Item Value Reference Range Interpretation Comments Lymphocytes # (test code = Lymphocytes 1.1 1.0-5.5 #) [facility] CenterFfxjeypZERNRHMAMY5293-45-33 10:16:00 Test Item Value Reference Range Interpretation Comments Monocytes # (test code 0.8 See_Comment [Aut omated message] The = Monocytes #) system which generated this result tra nsmitted reference range : <=0.8. The reference r abdifatah was not used to int erpret this result as normal/abnormal . [facility] CenterHmytmdtYJGDTFLGHS5242-27-97 10:16:00 Test Item Value Reference Range Interpretation Comments Eosinophils # (test code 0.3 See_Comment [A utomated message] The = Eosinophils #) system whic h generated this result tra nsmitted reference range : <=0.5. The reference r abdifatah was not used to int erpret this result as normal/abnormal . [facility] CenterPdrsqxdNEGBDUKTQQ4481-88-30 10:16:00 Test Item Value Reference Range Interpretation Comments WBC (test code = WBC) 13.0 3.7-10.4 [facility] CenterQuhhppsVVTGXYWETD0423-57-52 10:16:00 Test Item Value Reference Range Interpretation Comments RBC (test code = RBC) 2.42 4.20-5.40 [place] 657681-09-21 10:16:00 Test Item Value Reference Range Interpretation Comments Hgb (test code = Hgb) 7.4 12.0-16.0 [facility]MfzziwvMCEWZDUMAY2525-28-33 10:16:00 Test Item Value Reference Range Interpretation Comments Hct (test code = Hct) 22.1 36.0-48.0 [facility] HospitalKasklwqGSUKLVATBB2137-10-95 10:16:00 Test Item Value Reference Range Interpretation Comments MCV (test code = MCV) 91.3 80.0-98.0 [facility] HospitalKvtvhxtCBXZTUOWTT8075-16-20 10:16:00 Test Item Value Reference Range Interpretation Comments MCH (test code = MCH) 30.7 pg 27.0-31.0 [facility] HospitalPqzszccHMWJOGEHTB8097-13-24 10:16:00 Test Item Value Reference Range Interpretation Comments MCHC (test code = MCHC) 33.6 32.0-36.0 [facility] HospitalZwxiautKQECWFALWN9796-98-54 10:16:00 Test Item Value Reference Range Interpretation Comments RDW (test code = RDW) 15.7 11.5-14.5 [facility] HospitalLwvgsorJFTGOBWOLS9727-93-47 10:16:00 Test Item Value Reference Range Interpretation Comments Platelet (test code = Platelet) 639 976-450 [facility] HospitalGzqcskqWNDGIOXXCB6632-68-14 10:16:00 Test Item Value Reference Range Interpretation Comments MPV (test code = MPV) 7.2 7.4-10.4 [facility] HospitalXyawvnzUBWWDNSTKE6315-67-05 16:50:00 Test Item Value Reference Range Interpretation Comments INR (test code = INR) 0.97 1 0.85-1.17 [facility] HospitalYalhxbgLFWZXYKEOC9767-96-78 16:50:00 Test Item Value Reference Range Interpretation Comments PTT (test code = PTT) 37.3 s 22.9-35.8 [facility] HospitalGfrchfwOKKKAWIRHY2685-46-96 16:50:00 Test Item Value Reference Range Interpretation Comments PT (test code = PT) 12.8 s 12.0-14.7 [facility] [id number] 10:34:00 Test Item Value Reference Range Interpretation Comments Culture: Urine (test <10,000 CFU/mL Skin code = Culture: Urine) [facility] [id number] 09:58:00 Test Item Value Reference Range Interpretation Comments UA Color (test code = Yellow *NA*(01/15/21 UA Color) 4:58 AM) [facility] AND [id number] 09:58:00 Test Item Value Reference Range Interpretation Comments UA Turbidity (test code Slight *ABN*(01/15/21 = UA Turbidity) 4:58 AM) [facility] AND [id number] 09:58:00 Test Item Value Reference Range Interpretation Comments UA Spec Grav (test code = UA Spec 1.021 1 Grav) [facility] AND [id number] 09:58:00 Test Item Value Reference Range Interpretation Comments UA pH (test code = UA pH) 7.0 1 5.0-8.0 [facility] AND [id number] 09:58:00 Test Item Value Reference Range Interpretation Comments UA Protein (test code = UA Negative mg/dL Protein) [facility] AND [id number] 09:58:00 Test Item Value Reference Range Interpretation Comments UA Glucose (test code = UA Negative mg/dL Glucose) [facility] AND [id number] 09:58:00 Test Item Value Reference Range Interpretation Comments UA Ketones (test code = UA Negative mg/dL Ketones) [facility] AND [id number] 09:58:00 Test Item Value Reference Range Interpretation Comments UA Bili (test code = Negative *NA*(01/15/21 UA Bili) 4:58 AM) [facility] AND [id number] 09:58:00 Test Item Value Reference Range Interpretation Comments UA Blood (test code = Negative (01/15/21 4:58 UA Blood) AM) [facility] AND [id number] 09:58:00 Test Item Value Reference Range Interpretation Comments UA Urobilinogen (test code = UA 4.0 0.1-1.0 Urobilinogen) [facility] AND [id number] 09:58:00 Test Item Value Reference Range Interpretation Comments UA Nitrite (test code Negative (01/15/21 4:58 = UA Nitrite) AM) [facility] AND [id number] 09:58:00 Test Item Value Reference Range Interpretation Comments UA Leuk Est (test Moderate *ABN*(01/15/21 code = UA Leuk Est) 4:58 AM) [facility] AND [id number] 09:58:00 Test Item Value Reference Range Interpretation Comments UA Sq Epi (test code = UA Sq Occasional /LPF Epi) [facility] [id number] 09:58:00 Test Item Value Reference Range Interpretation Comments UA WBC (test code = 57 See_Comment [Automa gill message] The UA WBC) system which ge nerated this result transmit gill reference range : <=5. The reference range was not used to interpr et this result as len l/abnormal. [facility] [id number] 09:58:00 Test Item Value Reference Range Interpretation Comments UA RBC (test code = 3 See_Comment [Automa gill message] The UA RBC) system which ge nerated this result transmit gill reference range : <=2. The reference range was not used to interpr et this result as len l/abnormal. [facility] [id number] 09:58:00 Test Item Value Reference Range Interpretation Comments UA Bacteria (test code = UA Occasional /HPF Bacteria) [facility] [id number] 09:58:00 Test Item Value Reference Range Interpretation Comments UA Mucus (test code = UA Mucus) Few /LPF [facility] [id number] 09:58:00 Test Item Value Reference Range Interpretation Comments UA Hyal Cast (test 1 See_Comment [Automat ed message] The code = UA Hyal Cast) system which generated this result transmit gill reference range : <=2. The reference range was not used to interpr et this result as len l/abnormal. [facility] [id number] 09:58:00 Test Item Value Reference Range Interpretation Comments UA Trans Epi (test code = UA Trans Epi) 4 [facility] HospitalDbrdxfmMSBAGANKAP4434-83-49 09:47:00 Test Item Value Reference Range Interpretation Comments Coronavirus (COVID-19) Not Detected (01/15/21 KASSY (test code = 4:47 AM) Coronavirus (COVID-19) KASSY) [facility] [employer] [id number] 09:31:00 Test Item Value Reference Range Interpretation Comments ABO/Rh (test code = ABO/Rh) A POS [facility] [employer] BANK MBOVFVR8766-61-17 09:31:00 Test Item Value Reference Range Interpretation Comments Antibody Scrn (test Negative (01/15/21 4:31 code = Antibody Scrn) AM) [facility]2021-09-20 09:31:00 Test Item Value Reference Range Interpretation Comments Magnesium Lvl (test code = Magnesium 2.2 1.8-2.4 Lvl) [facility] CenterUnbrlvlEBYZLRPTDW1093-93-71 09:31:00 Test Item Value Reference Range Interpretation Comments PT (test code = PT) 12.9 s 12.0-14.7 [facility] CenterSvmnajkEVXKWWBUZA2835-78-49 09:31:00 Test Item Value Reference Range Interpretation Comments INR (test code = INR) 0.98 1 0.85-1.17 [facility] CenterNjmrwitRKYGUNAMAX3182-00-10 09:31:00 Test Item Value Reference Range Interpretation Comments PTT (test code = PTT) 38.9 s 22.9-35.8 [facility] CenterNvyodwtBBUZAZEYXC5065-81-46 09:31:00 Test Item Value Reference Range Interpretation Comments Basophils # (test code 0.1 See_Comment [Aut omated message] The = Basophils #) system which generated this result tra nsmitted reference range : <=0.2. The reference r abdifatah was not used to int erpret this result as normal/abnormal . [facility] CenterFfkcrnpAXYYOIWETQ3227-41-47 01:28:00 Test Item Value Reference Range Interpretation Comments PT (test code = PT) 12.6 s 12.0-14.7 [facility] CenterUxshiswFERLBSLLSD2072-03-90 01:28:00 Test Item Value Reference Range Interpretation Comments INR (test code = INR) 0.95 1 0.85-1.17 [facility] CenterIskkqelLCXEGXSWLI1486-14-07 01:28:00 Test Item Value Reference Range Interpretation Comments PTT (test code = PTT) 51.1 s 22.9-35.8 [facility] HospitalAtresnxCGOXEAEZLL2231-95-89 09:57:00 Test Item Value Reference Range Interpretation Comments Vancomycin AUC (test code = Vancomycin 20.2 AUC) [facility] CenterUaffycfGFUTNKOPJC0242-06-82 11:35:00 Test Item Value Reference Range Interpretation Comments Bands (test code = 0.0 See_Comment [Automat ed message] The Bands) system which ge nerated this result transmit gill reference range : <=11.0. The reference r abdifatah was not used to interpr et this result as len l/abnormal. [facility] CenterHohkswgLRSWTESONW2190-83-90 11:35:00 Test Item Value Reference Range Interpretation Comments Metamyelocytes (test code 1.0 See_Comment [ Automated message] = Metamyelocytes) The system which generated this result transmitted ref erence range: <=1.0. T he reference range was not used to int erpret this result as normal/abnormal . [place] 657681-09-18 11:35:00 Test Item Value Reference Range Interpretation Comments Myelocytes (test code = Myelocytes) 5.0 [place] 657681-09-18 11:35:00 Test Item Value Reference Range Interpretation Comments Atypical Lymphs (test code = Atypical 0.0 Lymphs) [place] [address]-09-18 11:35:00 Test Item Value Reference Range Interpretation Comments NRBC (test code = NRBC) 1 [place] 657681-09-18 11:35:00 Test Item Value Reference Range Interpretation Comments Anisocyte (test code = 1+ *ABN*(01/13/21 Anisocyte) 6:35 AM) [place] 657681-09-18 11:35:00 Test Item Value Reference Range Interpretation Comments Macrocyte (test code = 1+ *ABN*(01/13/21 Macrocyte) 6:35 AM) [place] [address]-09-18 11:35:00 Test Item Value Reference Range Interpretation Comments Polychrom (test code = Moderate *ABN*(01/13/21 Polychrom) 6:35 AM) [place] 657681-09-17 05:12:00 Test Item Value Reference Range Interpretation Comments Bands (test code = 2.0 See_Comment [Automat ed message] The Bands) system which ge nerated this result transmit gill reference range : <=11.0. The reference r abdifatah was not used to interpr et this result as len l/abnormal. [place] 657681-09-17 05:12:00 Test Item Value Reference Range Interpretation Comments Metamyelocytes (test code 4.0 See_Comment [ Automated message] = Metamyelocytes) The system which generated this result transmitted ref erence range: <=1.0. T he reference range was not used to int erpret this result as normal/abnormal . [facility] CenterJiuruwgBGQPTKVZQX5076-00-92 05:12:00 Test Item Value Reference Range Interpretation Comments Myelocytes (test code = Myelocytes) 2.0 [facility] CenterStjloloABRKFQNFIE8161-48-16 05:12:00 Test Item Value Reference Range Interpretation Comments Atypical Lymphs (test code = Atypical 0.0 Lymphs) [facility] CenterAydhmezDNMPVOWYHE6756-83-46 05:19:00 Test Item Value Reference Range Interpretation Comments Metamyelocytes (test code 2.0 See_Comment [ Automated message] = Metamyelocytes) The system which generated this result transmitted ref erence range: <=1.0. T he reference range was not used to int erpret this result as normal/abnormal . [facility] CenterOwoaqqwCVRBZJPQQF8008-48-74 05:19:00 Test Item Value Reference Range Interpretation Comments Myelocytes (test code = Myelocytes) 3.0 [facility] CenterQixrwpeKAEEOLMRKX4538-12-90 05:36:00 Test Item Value Reference Range Interpretation Comments NRBC (test code = NRBC) 1 [facility] CenterQtthdzkJFKWJWVBPL0465-41-78 05:36:00 Test Item Value Reference Range Interpretation Comments Plt Morph (test code = Normal (01/10/21 12:36 Plt Morph) AM) [facility] CenterFmlnqhxMRSJOYUVAO0962-88-38 05:36:00 Test Item Value Reference Range Interpretation Comments Anisocyte (test code = 1+ *ABN*(01/10/21 Anisocyte) 12:36 AM) [facility] CenterHpkvrtsNOXLDFUCMQ0699-68-55 05:36:00 Test Item Value Reference Range Interpretation Comments Polychrom (test code = Polychrom) slight [facility] CenterUgxtnobUHDDVOTGKB8292-84-21 08:28:00 Test Item Value Reference Range Interpretation Comments RBC Morph (test code = Normal (01/09/21 3:28 RBC Morph) AM) [facility] CenterEtzuhwiWGSYQXCXZQ5967-69-66 08:28:00 Test Item Value Reference Range Interpretation Comments Plt Morph (test code = Normal (01/09/21 3:28 Plt Morph) AM) [facility] BKHKDQH8887-89-23 18:26:00 Test Item Value Reference Range Interpretation Comments RBC product (test code Product available = RBC product) (01/04/21 1:26 PM) [facility] [id number] 11:51:00 Test Item Value Reference Range Interpretation Comments Lactic Acid Lvl (test code = Lactic 3.8 0.5-2.2 Acid Lvl) [facility] VUTKY0770-26-50 11:51:00 Test Item Value Reference Range Interpretation Comments Phosphorus (test code = Phosphorus) 3.7 2.5-4.5 [facility] [id number] 11:51:00 Test Item Value Reference Range Interpretation Comments Ca Ion WB (test code = Ca Ion WB) 1.27 1.05-1.25 [facility]2021-09-09 11:51:00 Test Item Value Reference Range Interpretation Comments Ca Norm WB (test code = Ca Norm WB) 1.26 1.05-1.25 [facility] QRFKTFW4831-72-69 16:17:00 Test Item Value Reference Range Interpretation Comments FFP product (test code Product available = FFP product) (01/03/21 11:17 AM) [facility] [id number] 07:16:00 Test Item Value Reference Range Interpretation Comments ABO/Rh (test code = ABO/Rh) A POS [facility] [id number] 07:16:00 Test Item Value Reference Range Interpretation Comments Antibody Scrn (test Negative (01/03/21 2:16 code = Antibody Scrn) AM) [facility] [id number] 06:36:00 Test Item Value Reference Range Interpretation Comments RBC product (test code Product available = RBC product) (01/03/21 1:36 AM) [facility] [id number] 06:10:00 Test Item Value Reference Range Interpretation Comments Phosphorus (test code = Phosphorus) 3.0 2.5-4.5 [facility] [id number] 06:27:00 Test Item Value Reference Range Interpretation Comments Phosphorus (test code = Phosphorus) 4.0 2.5-4.5 [facility] [id number] 13:43:00 Test Item Value Reference Range Interpretation Comments Procalcitonin Lvl (test no gt See_Comment [Au tomated message] code = Procalcitonin Lvl) Th e system which generated this result transmitted ref erence range: <=0.10. The reference range was not used to interpr et this result as normal/abnormal . [facility]NuftzkwVLEFAOIZGM6120-87-29 13:43:00 Test Item Value Reference Range Interpretation Comments Sed Rate (test code = 75 See_Comment [Auto mated message] The Sed Rate) system which ge nerated this result transmit gill reference range : <=20. The reference range was not used to interpr et this result as len l/abnormal. [facility] HospitalPaasfztBRUOFPVPWF8501-56-95 13:43:00 Test Item Value Reference Range Interpretation Comments C-REACTIVE PROTEIN (test code = 162.0 C-REACTIVE PROTEIN) [facility]2021-08-30 05:46:00 Test Item Value Reference Range Interpretation Comments Glucose Lvl (test code = Glucose Lvl) 110 70-99 [place] 780161-08-30 05:46:00 Test Item Value Reference Range Interpretation Comments BUN (test code = BUN) 9 7-22 [place] 780161-08-30 05:46:00 Test Item Value Reference Range Interpretation Comments Creatinine Lvl (test code = Creatinine 0.38 0.50-1.40 Lvl) [place] 780161-08-30 05:46:00 Test Item Value Reference Range Interpretation Comments Sodium Lvl (test code = Sodium Lvl) 142 135-145 [facility]2021-08-30 05:46:00 Test Item Value Reference Range Interpretation Comments Potassium Lvl (test code = Potassium 3.6 3.5-5.1 Lvl) [place] 780161-08-30 05:46:00 Test Item Value Reference Range Interpretation Comments Chloride Lvl (test code = Chloride Lvl) 110 95-109 [place] 780161-08-30 05:46:00 Test Item Value Reference Range Interpretation Comments CO2 (test code = CO2) 29 24-32 [place] 780161-08-30 05:46:00 Test Item Value Reference Range Interpretation Comments Calcium Lvl (test code = Calcium Lvl) 8.8 8.5-10.5 [place] 780161-08-30 05:46:00 Test Item Value Reference Range Interpretation Comments AGAP (test code = AGAP) 6.6 10.0-20.0 [place] 780161-08-30 05:46:00 Test Item Value Reference Range Interpretation Comments eGFR (test code = eGFR) 120 [facility] CenterKtowzosCFRKHWIWWE2912-27-91 05:46:00 Test Item Value Reference Range Interpretation Comments WBC (test code = WBC) 8.4 3.7-10.4 [place] 657681-08-30 05:46:00 Test Item Value Reference Range Interpretation Comments RBC (test code = RBC) 2.70 4.20-5.40 [place] 657681-08-30 05:46:00 Test Item Value Reference Range Interpretation Comments Hgb (test code = Hgb) 8.6 12.0-16.0 [place] 657681-08-30 05:46:00 Test Item Value Reference Range Interpretation Comments Hct (test code = Hct) 24.9 36.0-48.0 [facility] CenterHbgyhwyMORPEHHUMA3213-26-98 05:46:00 Test Item Value Reference Range Interpretation Comments MCV (test code = MCV) 92.3 80.0-98.0 [place] 657681-08-30 05:46:00 Test Item Value Reference Range Interpretation Comments MCH (test code = MCH) 31.9 pg 27.0-31.0 [facility] CenterGuqsztdMHHGOJXDJN1061-45-02 05:46:00 Test Item Value Reference Range Interpretation Comments MCHC (test code = MCHC) 34.6 32.0-36.0 [facility] CenterErplwxaAOARPQWHIW2124-13-24 05:46:00 Test Item Value Reference Range Interpretation Comments RDW (test code = RDW) 16.2 11.5-14.5 [facility] CenterAqfaexjRZUZOGEBWW6396-07-83 05:46:00 Test Item Value Reference Range Interpretation Comments Platelet (test code = Platelet) 381 051-450 [facility] CenterAcvviwrMJYBCFTGQK6747-31-95 05:46:00 Test Item Value Reference Range Interpretation Comments MPV (test code = MPV) 6.8 7.4-10.4 [place] 657681-08-30 05:46:00 Test Item Value Reference Range Interpretation Comments Segs (test code = Segs) 65.4 45.0-75.0 [facility] CenterAbticlzOYRAHXRXTO7161-24-17 05:46:00 Test Item Value Reference Range Interpretation Comments Lymphocytes (test code = Lymphocytes) 21.2 20.0-40.0 [place] 657681-08-30 05:46:00 Test Item Value Reference Range Interpretation Comments Monocytes (test code = Monocytes) 12.0 2.0-12.0 [place] 657681-08-30 05:46:00 Test Item Value Reference Range Interpretation Comments Eosinophils (test code = 1.0 See_Comment [A utomated message] The Eosinophils) system which ge nerated this result tra nsmitted reference range : <=4.0. The reference r abdifatah was not used to int erpret this result as normal/abnormal . [facility] CenterBsfpgbqDZEQVFCNNE6593-58-76 05:46:00 Test Item Value Reference Range Interpretation Comments Basophils (test code = 0.4 See_Comment [Aut omated message] The Basophils) system which ge nerated this result tra nsmitted reference range : <=1.0. The reference r abdifatah was not used to int erpret this result as normal/abnormal . [facility] CenterPnsdgnvYVOICQININ7617-46-24 05:46:00 Test Item Value Reference Range Interpretation Comments Neutrophils # (test code = Neutrophils 5.5 1.5-8.1 #) [facility] CenterGoykgcrGTZQEXBXPI3994-74-62 05:46:00 Test Item Value Reference Range Interpretation Comments Lymphocytes # (test code = Lymphocytes 1.8 1.0-5.5 #) [facility] CenterZiyhcwsNCCQTZIOII3260-76-30 05:46:00 Test Item Value Reference Range Interpretation Comments Monocytes # (test code 1.0 See_Comment [Aut omated message] The = Monocytes #) system which generated this result tra nsmitted reference range : <=0.8. The reference r abdifatah was not used to int erpret this result as normal/abnormal . [facility] CenterIndnicfBENQDQAJPH2078-75-28 05:46:00 Test Item Value Reference Range Interpretation Comments Eosinophils # (test code 0.1 See_Comment [A utomated message] The = Eosinophils #) system whic h generated this result tra nsmitted reference range : <=0.5. The reference r abdifatah was not used to int erpret this result as normal/abnormal . [facility]2021-08-29 07:37:00 Test Item Value Reference Range Interpretation Comments Glucose Lvl (test code = Glucose Lvl) 100 70-99 [place] 780161-08-29 07:37:00 Test Item Value Reference Range Interpretation Comments BUN (test code = BUN) 13 7-22 [place] 780161-08-29 07:37:00 Test Item Value Reference Range Interpretation Comments Creatinine Lvl (test code = Creatinine 0.34 0.50-1.40 Lvl) [place] 780161-08-29 07:37:00 Test Item Value Reference Range Interpretation Comments Sodium Lvl (test code = Sodium Lvl) 143 135-145 [place] 780161-08-29 07:37:00 Test Item Value Reference Range Interpretation Comments Potassium Lvl (test code = Potassium 3.7 3.5-5.1 Lvl) [place] 780161-08-29 07:37:00 Test Item Value Reference Range Interpretation Comments Chloride Lvl (test code = Chloride Lvl) 111 95-109 [place] 780161-08-29 07:37:00 Test Item Value Reference Range Interpretation Comments CO2 (test code = CO2) 29 24-32 [place] 780161-08-29 07:37:00 Test Item Value Reference Range Interpretation Comments Calcium Lvl (test code = Calcium Lvl) 8.6 8.5-10.5 [place] 780161-08-29 07:37:00 Test Item Value Reference Range Interpretation Comments AGAP (test code = AGAP) 6.7 10.0-20.0 [place] 780161-08-29 07:37:00 Test Item Value Reference Range Interpretation Comments eGFR (test code = eGFR) 124 [place] 657681-08-29 07:37:00 Test Item Value Reference Range Interpretation Comments Segs (test code = Segs) 64.0 45.0-75.0 [place] 657681-08-29 07:37:00 Test Item Value Reference Range Interpretation Comments Lymphocytes (test code = Lymphocytes) 21.4 20.0-40.0 [place] 657681-08-29 07:37:00 Test Item Value Reference Range Interpretation Comments Monocytes (test code = Monocytes) 13.4 2.0-12.0 [place] 657681-08-29 07:37:00 Test Item Value Reference Range Interpretation Comments Eosinophils (test code = 0.8 See_Comment [A utomated message] The Eosinophils) system which ge nerated this result tra nsmitted reference range : <=4.0. The reference r abdifatah was not used to int erpret this result as normal/abnormal . [facility] CenterOahbbmpKMJYGPJKGH0973-73-83 07:37:00 Test Item Value Reference Range Interpretation Comments Basophils (test code = 0.4 See_Comment [Aut omated message] The Basophils) system which ge nerated this result tra nsmitted reference range : <=1.0. The reference r abdifatah was not used to int erpret this result as normal/abnormal . [facility] CenterWcsqzipZQOOJIFSVD2385-36-06 07:37:00 Test Item Value Reference Range Interpretation Comments Neutrophils # (test code = Neutrophils 6.0 1.5-8.1 #) [facility] CenterVflqimnZZCOHSKEOB7866-89-16 07:37:00 Test Item Value Reference Range Interpretation Comments Lymphocytes # (test code = Lymphocytes 2.0 1.0-5.5 #) [facility] CenterBbwomegOCQSKOBUAR8566-47-63 07:37:00 Test Item Value Reference Range Interpretation Comments Monocytes # (test code 1.3 See_Comment [Aut omated message] The = Monocytes #) system which generated this result tra nsmitted reference range : <=0.8. The reference r abdifatah was not used to int erpret this result as normal/abnormal . [facility] CenterMuqvhvoFHOQSALHHL1757-62-66 07:37:00 Test Item Value Reference Range Interpretation Comments Eosinophils # (test code 0.1 See_Comment [A utomated message] The = Eosinophils #) system whic h generated this result tra nsmitted reference range : <=0.5. The reference r abdifatah was not used to int erpret this result as normal/abnormal . [facility] CenterSgsumxvMWXRLZHBFQ9447-12-52 07:37:00 Test Item Value Reference Range Interpretation Comments WBC (test code = WBC) 9.4 3.7-10.4 [facility] CenterGgptebpQLUXQXEPWT5516-54-44 07:37:00 Test Item Value Reference Range Interpretation Comments RBC (test code = RBC) 2.53 4.20-5.40 [facility] CenterZyfmxibGQVOVTBIMD9607-65-34 07:37:00 Test Item Value Reference Range Interpretation Comments Hgb (test code = Hgb) 8.2 12.0-16.0 [place] 657681-08-29 07:37:00 Test Item Value Reference Range Interpretation Comments Hct (test code = Hct) 23.4 36.0-48.0 [place] 657681-08-29 07:37:00 Test Item Value Reference Range Interpretation Comments MCV (test code = MCV) 92.5 80.0-98.0 [place] 657681-08-29 07:37:00 Test Item Value Reference Range Interpretation Comments MCH (test code = MCH) 32.4 pg 27.0-31.0 [place] [address]-08-29 07:37:00 Test Item Value Reference Range Interpretation Comments MCHC (test code = MCHC) 35.1 32.0-36.0 [place] 657681-08-29 07:37:00 Test Item Value Reference Range Interpretation Comments RDW (test code = RDW) 16.8 11.5-14.5 [place] 657681-08-29 07:37:00 Test Item Value Reference Range Interpretation Comments Platelet (test code = Platelet) 352 133-450 [place] 657681-08-29 07:37:00 Test Item Value Reference Range Interpretation Comments MPV (test code = MPV) 6.6 7.4-10.4 [place] 780161-08-28 07:13:00 Test Item Value Reference Range Interpretation Comments Glucose Lvl (test code = Glucose Lvl) 126 70-99 [place] 780161-08-28 07:13:00 Test Item Value Reference Range Interpretation Comments BUN (test code = BUN) 15 7-22 [place] 780161-08-28 07:13:00 Test Item Value Reference Range Interpretation Comments Creatinine Lvl (test code = Creatinine 0.42 0.50-1.40 Lvl) [place] 780161-08-28 07:13:00 Test Item Value Reference Range Interpretation Comments Sodium Lvl (test code = Sodium Lvl) 144 135-145 [place] 780161-08-28 07:13:00 Test Item Value Reference Range Interpretation Comments Potassium Lvl (test code = Potassium 4.3 3.5-5.1 Lvl) [place] 780161-08-28 07:13:00 Test Item Value Reference Range Interpretation Comments Chloride Lvl (test code = Chloride Lvl) 111 95-109 [facility]2021-08-28 07:13:00 Test Item Value Reference Range Interpretation Comments CO2 (test code = CO2) 27 24-32 [facility]2021-08-28 07:13:00 Test Item Value Reference Range Interpretation Comments AGAP (test code = AGAP) 10.3 10.0-20.0 [place] 780161-08-28 07:13:00 Test Item Value Reference Range Interpretation Comments Calcium Lvl (test code = Calcium Lvl) 9.0 8.5-10.5 [facility]2021-08-28 07:13:00 Test Item Value Reference Range Interpretation Comments eGFR (test code = eGFR) 116 [facility] CenterEkbhtulYAKGYSQMQF1425-62-78 07:13:00 Test Item Value Reference Range Interpretation Comments WBC (test code = WBC) 8.5 3.7-10.4 [place] 657681-08-28 07:13:00 Test Item Value Reference Range Interpretation Comments RBC (test code = RBC) 2.98 4.20-5.40 [facility] CenterKhmoteuGZHNFPTFYF9904-41-23 07:13:00 Test Item Value Reference Range Interpretation Comments Hgb (test code = Hgb) 9.1 12.0-16.0 [facility] CenterViilltwIUJBTFZYVC1974-08-37 07:13:00 Test Item Value Reference Range Interpretation Comments Hct (test code = Hct) 27.3 36.0-48.0 [facility] CenterAfqgbfsXLNLWIGIDD9323-38-50 07:13:00 Test Item Value Reference Range Interpretation Comments MCV (test code = MCV) 91.7 80.0-98.0 [place] 657681-08-28 07:13:00 Test Item Value Reference Range Interpretation Comments MCH (test code = MCH) 30.7 pg 27.0-31.0 [place] 657681-08-28 07:13:00 Test Item Value Reference Range Interpretation Comments MCHC (test code = MCHC) 33.4 32.0-36.0 [place] 657681-08-28 07:13:00 Test Item Value Reference Range Interpretation Comments RDW (test code = RDW) 16.7 11.5-14.5 [place] 657681-08-28 07:13:00 Test Item Value Reference Range Interpretation Comments Platelet (test code = Platelet) 388 133-450 [facility] CenterWvklbzvQVMNCFJKME7828-81-40 07:13:00 Test Item Value Reference Range Interpretation Comments MPV (test code = MPV) 6.7 7.4-10.4 [facility] CenterNntnxjqOYARCOOKSW4631-34-42 07:13:00 Test Item Value Reference Range Interpretation Comments Segs (test code = Segs) 75.1 45.0-75.0 [facility] CenterZgsbuntVWKQNHSZTT4206-22-19 07:13:00 Test Item Value Reference Range Interpretation Comments Lymphocytes (test code = Lymphocytes) 13.0 20.0-40.0 [facility] CenterNgyumoaRNGYUYDHFA3859-33-84 07:13:00 Test Item Value Reference Range Interpretation Comments Monocytes (test code = Monocytes) 11.8 2.0-12.0 [facility] CenterYkbjslyPXITMKHVKH0711-20-27 07:13:00 Test Item Value Reference Range Interpretation Comments Basophils (test code = 0.1 See_Comment [Aut omated message] The Basophils) system which ge nerated this result tra nsmitted reference range : <=1.0. The reference r abdifatah was not used to int erpret this result as normal/abnormal . [facility] CenterLczwuvkVTQIAMACQC1322-68-32 07:13:00 Test Item Value Reference Range Interpretation Comments Neutrophils # (test code = Neutrophils 6.4 1.5-8.1 #) [facility] CenterMwwbixoGUBLDPDUDM2795-82-54 07:13:00 Test Item Value Reference Range Interpretation Comments Lymphocytes # (test code = Lymphocytes 1.1 1.0-5.5 #) [facility] CenterUpviipwKLSPBYFXXU9984-42-40 07:13:00 Test Item Value Reference Range Interpretation Comments Monocytes # (test code 1.0 See_Comment [Aut omated message] The = Monocytes #) system which generated this result tra nsmitted reference range : <=0.8. The reference r abdifatah was not used to int erpret this result as normal/abnormal . [facility] HospitalBablic KVMBIZC3944-26-35 12:54:00 Test Item Value Reference Range Interpretation Comments RBC product (test code Product available = RBC product) (12/22/20 7:54 AM) [facility] SRNEEGX8330-22-06 12:54:00 Test Item Value Reference Range Interpretation Comments FFP product (test code Product available = FFP product) (12/22/20 7:54 AM) [facility] JAYIDBS6734-12-69 07:31:00 Test Item Value Reference Range Interpretation Comments Antibody Scrn (test Negative (12/22/20 2:31 code = Antibody Scrn) AM) [facility] HospitalBATS Global MarketsWEST[facility] OLGSKJX9820-89-05 07:31:00 Test Item Value Reference Range Interpretation Comments ABO/Rh (test code = ABO/Rh) A POS [facility] CenterMwqvmewRNCFAMQAXN8014-66-81 07:31:00 Test Item Value Reference Range Interpretation Comments PTT (test code = PTT) 26.2 s 22.9-35.8 [facility] CenterDlnibuiRDEZECKPZC1830-05-08 07:31:00 Test Item Value Reference Range Interpretation Comments PT (test code = PT) 11.8 s 12.0-14.7 [facility] CenterVhnsvpfDBMILRFRYF6291-20-11 07:31:00 Test Item Value Reference Range Interpretation Comments INR (test code = INR) 0.87 1 0.85-1.17 [facility] CenterSxyjdhaMHOPOBJYZE2198-84-33 07:31:00 Test Item Value Reference Range Interpretation Comments Eosinophils (test code = 1.3 See_Comment [A utomated message] The Eosinophils) system which ge nerated this result tra nsmitted reference range : <=4.0. The reference r abdifatah was not used to int erpret this result as normal/abnormal . [facility] CenterHhnutsoWPPWJQGLYA1822-79-48 07:31:00 Test Item Value Reference Range Interpretation Comments Eosinophils # (test code 0.1 See_Comment [A utomated message] The = Eosinophils #) system whic h generated this result tra nsmitted reference range : <=0.5. The reference r abdifatah was not used to int erpret this result as normal/abnormal . [facility] HospitalIhtdklbAHKYXVRYEF5404-00-27 06:12:00 Test Item Value Reference Range Interpretation Comments Coronavirus (COVID-19) Not Detected (12/22/20 KASSY (test code = 1:12 AM) Coronavirus (COVID-19) KASSY) [facility] HospitalCHEM SSPVK7397-47-40 05:56:00 Test Item Value Reference Range Interpretation Comments Magnesium Lvl (test code = Magnesium 2.2 1.8-2.4 Lvl) [place] 780161-08-23 05:26:00 Test Item Value Reference Range Interpretation Comments Glucose Lvl (test code = Glucose Lvl) 115 70-99 [place] 780161-08-23 05:26:00 Test Item Value Reference Range Interpretation Comments BUN (test code = BUN) 10 7-22 [place] 780161-08-23 05:26:00 Test Item Value Reference Range Interpretation Comments Creatinine Lvl (test code = Creatinine 0.46 0.50-1.40 Lvl) [place] 780161-08-23 05:26:00 Test Item Value Reference Range Interpretation Comments Sodium Lvl (test code = Sodium Lvl) 141 135-145 [place] 780161-08-23 05:26:00 Test Item Value Reference Range Interpretation Comments Potassium Lvl (test code = Potassium 3.3 3.5-5.1 Lvl) [place] 780161-08-23 05:26:00 Test Item Value Reference Range Interpretation Comments Chloride Lvl (test code = Chloride Lvl) 109 95-109 [place] 780161-08-23 05:26:00 Test Item Value Reference Range Interpretation Comments CO2 (test code = CO2) 28 24-32 [place] 780161-08-23 05:26:00 Test Item Value Reference Range Interpretation Comments Calcium Lvl (test code = Calcium Lvl) 8.4 8.5-10.5 [place] 780161-08-23 05:26:00 Test Item Value Reference Range Interpretation Comments AGAP (test code = AGAP) 7.3 10.0-20.0 [place] 780161-08-23 05:26:00 Test Item Value Reference Range Interpretation Comments eGFR (test code = eGFR) 112 [place] 657681-08-23 05:26:00 Test Item Value Reference Range Interpretation Comments Segs (test code = Segs) 66.8 45.0-75.0 [place] [address]-08-23 05:26:00 Test Item Value Reference Range Interpretation Comments Lymphocytes (test code = Lymphocytes) 21.4 20.0-40.0 [place] 657681-08-23 05:26:00 Test Item Value Reference Range Interpretation Comments Monocytes (test code = Monocytes) 11.3 2.0-12.0 [place] 657681-08-23 05:26:00 Test Item Value Reference Range Interpretation Comments Eosinophils (test code = 0.4 See_Comment [A utomated message] The Eosinophils) system which ge nerated this result tra nsmitted reference range : <=4.0. The reference r abdifatah was not used to int erpret this result as normal/abnormal . [place] 657681-08-23 05:26:00 Test Item Value Reference Range Interpretation Comments Basophils (test code = 0.1 See_Comment [Aut omated message] The Basophils) system which ge nerated this result tra nsmitted reference range : <=1.0. The reference r abdifatah was not used to int erpret this result as normal/abnormal . [place] 657681-08-23 05:26:00 Test Item Value Reference Range Interpretation Comments Neutrophils # (test code = Neutrophils 5.5 1.5-8.1 #) [place] 657681-08-23 05:26:00 Test Item Value Reference Range Interpretation Comments Lymphocytes # (test code = Lymphocytes 1.8 1.0-5.5 #) [place] 657681-08-23 05:26:00 Test Item Value Reference Range Interpretation Comments Monocytes # (test code 0.9 See_Comment [Aut omated message] The = Monocytes #) system which generated this result tra nsmitted reference range : <=0.8. The reference r abdifatah was not used to int erpret this result as normal/abnormal . [place] 657681-08-23 05:26:00 Test Item Value Reference Range Interpretation Comments WBC (test code = WBC) 8.2 3.7-10.4 [place] 657681-08-23 05:26:00 Test Item Value Reference Range Interpretation Comments RBC (test code = RBC) 3.14 4.20-5.40 [place] 657681-08-23 05:26:00 Test Item Value Reference Range Interpretation Comments Hgb (test code = Hgb) 9.6 12.0-16.0 [place] 657681-08-23 05:26:00 Test Item Value Reference Range Interpretation Comments Hct (test code = Hct) 28.3 36.0-48.0 [facility] CenterUowbtyzTFDDVITVJT1393-50-08 05:26:00 Test Item Value Reference Range Interpretation Comments MCV (test code = MCV) 90.1 80.0-98.0 [facility] CenterJrcqbqkOLMHLSYHII8904-81-47 05:26:00 Test Item Value Reference Range Interpretation Comments MCH (test code = MCH) 30.6 pg 27.0-31.0 [facility] CenterWcvfsnaGZWLXYFJHT1444-02-91 05:26:00 Test Item Value Reference Range Interpretation Comments MCHC (test code = MCHC) 33.9 32.0-36.0 [facility] CenterEnhcsdpVRYSJFDASX1324-75-28 05:26:00 Test Item Value Reference Range Interpretation Comments RDW (test code = RDW) 16.1 11.5-14.5 [facility] CenterCnrveotFMUYDLZOZZ9332-97-01 05:26:00 Test Item Value Reference Range Interpretation Comments Platelet (test code = Platelet) 192 133-450 [facility] CenterDaxzjwgIVPDHSQZLV4028-87-63 05:26:00 Test Item Value Reference Range Interpretation Comments MPV (test code = MPV) 8.2 7.4-10.4 [facility] CenterHwsyxzvLKKRWVDBII8433-25-64 12:18:00 Test Item Value Reference Range Interpretation Comments PT (test code = PT) 13.7 s 12.0-14.7 [facility] CenterBgnqzqcBTNGHFCEEK9975-72-27 12:18:00 Test Item Value Reference Range Interpretation Comments INR (test code = INR) 1.06 1 0.85-1.17 [place] 657681-08-22 12:18:00 Test Item Value Reference Range Interpretation Comments PTT (test code = PTT) 34.8 s 22.9-35.8 [facility]2021-08-22 09:58:00 Test Item Value Reference Range Interpretation Comments Glucose Lvl (test code = Glucose Lvl) 106 70-99 [facility]2021-08-22 09:58:00 Test Item Value Reference Range Interpretation Comments BUN (test code = BUN) 7 7-22 [place] 780161-08-22 09:58:00 Test Item Value Reference Range Interpretation Comments Creatinine Lvl (test code = Creatinine 0.41 0.50-1.40 Lvl) [facility]2021-08-22 09:58:00 Test Item Value Reference Range Interpretation Comments Sodium Lvl (test code = Sodium Lvl) 145 135-145 [place] 780161-08-22 09:58:00 Test Item Value Reference Range Interpretation Comments Potassium Lvl (test code = Potassium 3.5 3.5-5.1 Lvl) [place] 780161-08-22 09:58:00 Test Item Value Reference Range Interpretation Comments Chloride Lvl (test code = Chloride Lvl) 113 95-109 [place] 780161-08-22 09:58:00 Test Item Value Reference Range Interpretation Comments CO2 (test code = CO2) 29 24-32 [place] 780161-08-22 09:58:00 Test Item Value Reference Range Interpretation Comments Calcium Lvl (test code = Calcium Lvl) 8.8 8.5-10.5 [place] 780161-08-22 09:58:00 Test Item Value Reference Range Interpretation Comments Total Protein (test code = Total 6.0 6.4-8.4 Protein) [place] 780161-08-22 09:58:00 Test Item Value Reference Range Interpretation Comments Albumin Lvl (test code = Albumin Lvl) 3.0 3.5-5.0 [place] 780161-08-22 09:58:00 Test Item Value Reference Range Interpretation Comments ALT (test code = ALT) 37 See_Comment [Auto mated message] The system which ge nerated this result transmit gill reference range : <=65. The reference range was not used to interpr et this result as len l/abnormal. [place] 780161-08-22 09:58:00 Test Item Value Reference Range Interpretation Comments AST (test code = AST) 34 See_Comment [Auto mated message] The system which ge nerated this result transmit gill reference range : <=37. The reference range was not used to interpr et this result as len l/abnormal. [place] 780161-08-22 09:58:00 Test Item Value Reference Range Interpretation Comments Alk Phos (test code = Alk Phos) 50 39-136 [place] 780161-08-22 09:58:00 Test Item Value Reference Range Interpretation Comments Bili Total (test code = Bili Total) 0.9 0.2-1.3 [place] 780161-08-22 09:58:00 Test Item Value Reference Range Interpretation Comments AGAP (test code = AGAP) 6.5 10.0-20.0 [place] 780161-08-22 09:58:00 Test Item Value Reference Range Interpretation Comments B/C Ratio (test code = B/C Ratio) 17 1 6-25 [place] 780161-08-22 09:58:00 Test Item Value Reference Range Interpretation Comments Globulin (test code = Globulin) 3.0 2.7-4.2 [place] 780161-08-22 09:58:00 Test Item Value Reference Range Interpretation Comments A/G Ratio (test code = A/G Ratio) 1.0 1 0.7-1.6 [place] 780161-08-22 09:58:00 Test Item Value Reference Range Interpretation Comments eGFR (test code = eGFR) 116 [facility]2021-08-22 09:58:00 Test Item Value Reference Range Interpretation Comments Lactic Acid Lvl (test code = Lactic 1.1 0.5-2.2 Acid Lvl) [facility]wonkdlZMOQWFBVCZ3967[facility]17-42 09:58:00 Test Item Value Reference Range Interpretation Comments WBC (test code = WBC) 7.5 3.7-10.4 [place] 657681-08-22 09:58:00 Test Item Value Reference Range Interpretation Comments RBC (test code = RBC) 3.13 4.20-5.40 [facility] CenterCkwtcseTMFFEOSANX7579-64-52 09:58:00 Test Item Value Reference Range Interpretation Comments Hgb (test code = Hgb) 9.8 12.0-16.0 [place] 657681-08-22 09:58:00 Test Item Value Reference Range Interpretation Comments Hct (test code = Hct) 28.0 36.0-48.0 [place] 657681-08-22 09:58:00 Test Item Value Reference Range Interpretation Comments MCV (test code = MCV) 89.5 80.0-98.0 [place] 657681-08-22 09:58:00 Test Item Value Reference Range Interpretation Comments MCH (test code = MCH) 31.4 pg 27.0-31.0 [place] 657681-08-22 09:58:00 Test Item Value Reference Range Interpretation Comments MCHC (test code = MCHC) 35.1 32.0-36.0 [place] 657681-08-22 09:58:00 Test Item Value Reference Range Interpretation Comments RDW (test code = RDW) 15.9 11.5-14.5 [place] 657681-08-22 09:58:00 Test Item Value Reference Range Interpretation Comments Platelet (test code = Platelet) 174 133-450 [place] 657681-08-22 09:58:00 Test Item Value Reference Range Interpretation Comments MPV (test code = MPV) 8.0 7.4-10.4 [place] 657681-08-22 09:58:00 Test Item Value Reference Range Interpretation Comments Segs (test code = Segs) 64.1 45.0-75.0 [place] 657681-08-22 09:58:00 Test Item Value Reference Range Interpretation Comments Lymphocytes (test code = Lymphocytes) 22.1 20.0-40.0 [place] 657681-08-22 09:58:00 Test Item Value Reference Range Interpretation Comments Monocytes (test code = Monocytes) 13.1 2.0-12.0 [facility] CenterZlyjyefEULXFYIPBG6070-52-99 09:58:00 Test Item Value Reference Range Interpretation Comments Eosinophils (test code = 0.3 See_Comment [A utomated message] The Eosinophils) system which ge nerated this result tra nsmitted reference range : <=4.0. The reference r abdifatah was not used to int erpret this result as normal/abnormal . [facility] CenterVxiaidnMPRNRTWGDP3107-92-64 09:58:00 Test Item Value Reference Range Interpretation Comments Basophils (test code = 0.4 See_Comment [Aut omated message] The Basophils) system which ge nerated this result tra nsmitted reference range : <=1.0. The reference r abdifatah was not used to int erpret this result as normal/abnormal . [place] 657681-08-22 09:58:00 Test Item Value Reference Range Interpretation Comments Neutrophils # (test code = Neutrophils 4.8 1.5-8.1 #) [place] 657681-08-22 09:58:00 Test Item Value Reference Range Interpretation Comments Lymphocytes # (test code = Lymphocytes 1.7 1.0-5.5 #) [facility] CenterEdcvhjoGUBYVWIEVV0724-24-40 09:58:00 Test Item Value Reference Range Interpretation Comments Monocytes # (test code 1.0 See_Comment [Aut omated message] The = Monocytes #) system which generated this result tra nsmitted reference range : <=0.8. The reference r abdifatah was not used to int erpret this result as normal/abnormal . [place] 780161-08-21 19:25:00 Test Item Value Reference Range Interpretation Comments Lactic Acid Lvl (test code = Lactic 3.6 0.5-2.2 Acid Lvl) [place] 780161-08-21 15:30:00 Test Item Value Reference Range Interpretation Comments Lactic Acid Lvl (test code = Lactic 2.1 0.5-2.2 Acid Lvl) [place] 657681-08-21 15:22:00 Test Item Value Reference Range Interpretation Comments PT (test code = PT) 13.3 s 12.0-14.7 [place] 657681-08-21 15:22:00 Test Item Value Reference Range Interpretation Comments INR (test code = INR) 1.02 1 0.85-1.17 [place] 657681-08-21 15:22:00 Test Item Value Reference Range Interpretation Comments PTT (test code = PTT) 25.7 s 22.9-35.8 [facility]2021-08-21 11:03:00 Test Item Value Reference Range Interpretation Comments Procalcitonin Lvl <0.05 ng/mL See_Comment [Automate d message] (test code = The system whic h Procalcitonin Lvl) generated this result transmit gill reference range : <=0.10. The reference range was not used to interpret this result as normal/abnormal . [place] 657681-08-21 08:33:00 Test Item Value Reference Range Interpretation Comments WBC (test code = WBC) 8.8 3.7-10.4 [place] 657681-08-21 08:33:00 Test Item Value Reference Range Interpretation Comments RBC (test code = RBC) 3.26 4.20-5.40 [place] 657681-08-21 08:33:00 Test Item Value Reference Range Interpretation Comments Hgb (test code = Hgb) 10.0 12.0-16.0 [place] 657681-08-21 08:33:00 Test Item Value Reference Range Interpretation Comments Hct (test code = Hct) 29.6 36.0-48.0 [facility] CenterLhbaoknSSIRKCMUUX3341-71-17 08:33:00 Test Item Value Reference Range Interpretation Comments MCV (test code = MCV) 90.8 80.0-98.0 [facility] CenterPmpdiyiSAMFQOUDHA1706-85-08 08:33:00 Test Item Value Reference Range Interpretation Comments MCH (test code = MCH) 30.7 pg 27.0-31.0 [place] 657681-08-21 08:33:00 Test Item Value Reference Range Interpretation Comments MCHC (test code = MCHC) 33.8 32.0-36.0 [facility] CenterDafkaloKDGKSHUNVZ6598-22-27 08:33:00 Test Item Value Reference Range Interpretation Comments RDW (test code = RDW) 16.1 11.5-14.5 [facility] CenterDizpaedMPSTMGCRTO8930-94-67 08:33:00 Test Item Value Reference Range Interpretation Comments Platelet (test code = Platelet) 171 133-450 [facility] CenterCeccbhwLQPCTTONTA7522-21-58 08:33:00 Test Item Value Reference Range Interpretation Comments MPV (test code = MPV) 8.6 7.4-10.4 [place] 657681-08-21 08:33:00 Test Item Value Reference Range Interpretation Comments Segs (test code = Segs) 79.1 45.0-75.0 [place] 657681-08-21 08:33:00 Test Item Value Reference Range Interpretation Comments Lymphocytes (test code = Lymphocytes) 11.2 20.0-40.0 [place] 657681-08-21 08:33:00 Test Item Value Reference Range Interpretation Comments Monocytes (test code = Monocytes) 9.5 2.0-12.0 [place] 657681-08-21 08:33:00 Test Item Value Reference Range Interpretation Comments Basophils (test code = 0.2 See_Comment [Aut omated message] The Basophils) system which ge nerated this result tra nsmitted reference range : <=1.0. The reference r abdifatah was not used to int erpret this result as normal/abnormal . [place] 657681-08-21 08:33:00 Test Item Value Reference Range Interpretation Comments Neutrophils # (test code = Neutrophils 6.9 1.5-8.1 #) [place] 657681-08-21 08:33:00 Test Item Value Reference Range Interpretation Comments Lymphocytes # (test code = Lymphocytes 1.0 1.0-5.5 #) [place] 657681-08-21 08:33:00 Test Item Value Reference Range Interpretation Comments Monocytes # (test code 0.8 See_Comment [Aut omated message] The = Monocytes #) system which generated this result tra nsmitted reference range : <=0.8. The reference r abdifatah was not used to int erpret this result as normal/abnormal . [facility] [id number] 06:30:00 Test Item Value Reference Range Interpretation Comments Total CK (test code = Total CK) 396 12-191 [facility] [id number] 06:30:00 Test Item Value Reference Range Interpretation Comments Troponin-I (test code no gt See_Comment [Auto mated message] The = Troponin-I) system which g enerated this result transmit gill reference range : <=0.40. The reference r abdifatah was not used to interpr et this result as len l/abnormal. [place] 657681-08-21 06:30:00 Test Item Value Reference Range Interpretation Comments PTT (test code = PTT) 28.0 s 22.9-35.8 [place] 780161-08-20 23:44:00 Test Item Value Reference Range Interpretation Comments Glucose Lvl (test code = Glucose Lvl) 161 70-99 [facility] [id number] 23:44:00 Test Item Value Reference Range Interpretation Comments BUN (test code = BUN) 7 7-22 [place] 780161-08-20 23:44:00 Test Item Value Reference Range Interpretation Comments Creatinine Lvl (test code = Creatinine 0.76 0.50-1.40 Lvl) [place] 780161-08-20 23:44:00 Test Item Value Reference Range Interpretation Comments Sodium Lvl (test code = Sodium Lvl) 143 135-145 [facility] [id number] 23:44:00 Test Item Value Reference Range Interpretation Comments Potassium Lvl (test code = Potassium 4.7 3.5-5.1 Lvl) [facility] [id number] 23:44:00 Test Item Value Reference Range Interpretation Comments Chloride Lvl (test code = Chloride Lvl) 110 95-109 [facility] [email or web address] [id number] 23:44:00 Test Item Value Reference Range Interpretation Comments CO2 (test code = CO2) 20 24-32 [facility] [id number] 23:44:00 Test Item Value Reference Range Interpretation Comments Calcium Lvl (test code = Calcium Lvl) 9.1 8.5-10.5 [facility] [email or web address] [id number] 23:44:00 Test Item Value Reference Range Interpretation Comments AGAP (test code = AGAP) 17.7 10.0-20.0 [facility] [id number] 23:44:00 Test Item Value Reference Range Interpretation Comments eGFR (test code = eGFR) 89 [facility] [id number] 23:10:00 Test Item Value Reference Range Interpretation Comments Total CK (test code = Total CK) 519 12-191 [facility] HospitalBsmoqurUGTKGWOJZH6434-30-73 23:10:00 Test Item Value Reference Range Interpretation Comments PT (test code = PT) 15.9 s 12.0-14.7 [facility] HospitalTgqdzyyFBDBFDFVMO4607-07-55 23:10:00 Test Item Value Reference Range Interpretation Comments INR (test code = INR) 1.29 1 0.85-1.17 [facility] HospitalEjksuziNXNJQXKAU9419-08-68 23:10:00 Test Item Value Reference Range Interpretation Comments Myoglobin (test code = Myoglobin) 211 25-72 [facility] [employer] [id number] 16:12:00 Test Item Value Reference Range Interpretation Comments RBC product (test code Product available = RBC product) (12/15/20 11:12 AM) [facility] [employer] [id number] 16:12:00 Test Item Value Reference Range Interpretation Comments FFP product (test code Product available = FFP product) (12/15/20 11:12 AM) [facility] [employer] [id number] 15:56:00 Test Item Value Reference Range Interpretation Comments ABO/Rh (test code = ABO/Rh) A POS [facility] HospitalBATS Global MarketsOOD B[facility] [id number] 15:56:00 Test Item Value Reference Range Interpretation Comments Antibody Scrn (test Negative (12/13/20 code = Antibody Scrn) 10:56 AM) [id number] 15:56:00 Test Item Value Reference Range Interpretation Comments Eosinophils (test code = 1.2 See_Comment [A utomated message] The Eosinophils) system which ge nerated this result tra nsmitted reference range : <=4.0. The reference r abdifatah was not used to int erpret this result as normal/abnormal . [facility] CenterUnfhjsrCFOLGAOQNR8895-20-22 15:56:00 Test Item Value Reference Range Interpretation Comments Eosinophils # (test code 0.1 See_Comment [A utomated message] The = Eosinophils #) system whic h generated this result tra nsmitted reference range : <=0.5. The reference r abdifatah was not used to int erpret this result as normal/abnormal . [facility] Ho[id number] 18:54:00 Test Item Value Reference Range Interpretation Comments Coronavirus (COVID-19) Not Detected KASSY (test code = *NA*(12/11/20 1:54 PM) Coronavirus (COVID-19) KASSY) [facility] [email or web address] [id number] 18:00:00 Test Item Value Reference Range Interpretation Comments Glucose Lvl (test code = Glucose Lvl) 97 70-99 [facility] [email or web address] [id number] 18:00:00 Test Item Value Reference Range Interpretation Comments BUN (test code = BUN) 18 7-22 [facility] [id number] 18:00:00 Test Item Value Reference Range Interpretation Comments Creatinine Lvl (test code = Creatinine 0.77 0.50-1.40 Lvl) [facility] [email or web address] [id number] 18:00:00 Test Item Value Reference Range Interpretation Comments Sodium Lvl (test code = Sodium Lvl) 147 135-145 [facility] [email or web address] [id number] 18:00:00 Test Item Value Reference Range Interpretation Comments Potassium Lvl (test code = Potassium 3.6 3.5-5.1 Lvl) [place] 780161-05-28 18:00:00 Test Item Value Reference Range Interpretation Comments Chloride Lvl (test code = Chloride Lvl) 114 95-109 [place] 780161-05-28 18:00:00 Test Item Value Reference Range Interpretation Comments CO2 (test code = CO2) 28 24-32 [place] 780161-05-28 18:00:00 Test Item Value Reference Range Interpretation Comments Calcium Lvl (test code = Calcium Lvl) 8.5 8.5-10.5 [place] 780161-05-28 18:00:00 Test Item Value Reference Range Interpretation Comments AGAP (test code = AGAP) 8.6 10.0-20.0 [place] 780161-05-28 18:00:00 Test Item Value Reference Range Interpretation Comments eGFR (test code = eGFR) 87 [place] 780161-05-28 09:30:00 Test Item Value Reference Range Interpretation Comments Procalcitonin Lvl (test 0.20 See_Comment [Au tomated message] code = Procalcitonin Lvl) e system which generated this result transmitted ref erence range: <=0.10. The reference range was not used to interpr et this result as normal/abnormal . [place] 780161-05-28 09:30:00 Test Item Value Reference Range Interpretation Comments Glucose Lvl (test code = Glucose Lvl) 111 70-99 [place] 780161-05-28 09:30:00 Test Item Value Reference Range Interpretation Comments BUN (test code = BUN) 21 7-22 [place] 780161-05-28 09:30:00 Test Item Value Reference Range Interpretation Comments Creatinine Lvl (test code = Creatinine 0.72 0.50-1.40 Lvl) [place] 780161-05-28 09:30:00 Test Item Value Reference Range Interpretation Comments Sodium Lvl (test code = Sodium Lvl) 147 135-145 [place] 780161-05-28 09:30:00 Test Item Value Reference Range Interpretation Comments Potassium Lvl (test code = Potassium 3.5 3.5-5.1 Lvl) [place] 780161-05-28 09:30:00 Test Item Value Reference Range Interpretation Comments Chloride Lvl (test code = Chloride Lvl) 115 95-109 [facility]hamMobAppCreatorALEX [place] [id number] 09:30:00 Test Item Value Reference Range Interpretation Comments CO2 (test code = CO2) 28 24-32 [place] 780161-05-28 09:30:00 Test Item Value Reference Range Interpretation Comments Calcium Lvl (test code = Calcium Lvl) 9.1 8.5-10.5 [facility] [id number] 09:30:00 Test Item Value Reference Range Interpretation Comments Total Protein (test code = Total 5.8 6.4-8.4 Protein) [place] 780161-05-28 09:30:00 Test Item Value Reference Range Interpretation Comments Albumin Lvl (test code = Albumin Lvl) 2.4 3.5-5.0 [facility] [id number] 09:30:00 Test Item Value Reference Range Interpretation Comments ALT (test code = ALT) 24 See_Comment [Auto mated message] The system which ge nerated this result transmit gill reference range : <=65. The reference range was not used to interpr et this result as len l/abnormal. [facility] [id number] 09:30:00 Test Item Value Reference Range Interpretation Comments AST (test code = AST) 25 See_Comment [Auto mated message] The system which ge nerated this result transmit gill reference range : <=37. The reference range was not used to interpr et this result as len l/abnormal. [facility] [id number] 09:30:00 Test Item Value Reference Range Interpretation Comments Alk Phos (test code = Alk Phos) 64 39-136 [facility] [id number] 09:30:00 Test Item Value Reference Range Interpretation Comments Bili Total (test code = Bili Total) 0.2 0.2-1.3 [facility] [id number] 09:30:00 Test Item Value Reference Range Interpretation Comments AGAP (test code = AGAP) 7.5 10.0-20.0 [facility] [id number] 09:30:00 Test Item Value Reference Range Interpretation Comments B/C Ratio (test code = B/C Ratio) 29 1 6-25 [facility] [place] 191291-05-28 09:30:00 Test Item Value Reference Range Interpretation Comments Globulin (test code = Globulin) 3.4 2.7-4.2 [place] 780161-05-28 09:30:00 Test Item Value Reference Range Interpretation Comments A/G Ratio (test code = A/G Ratio) 0.7 1 0.7-1.6 [place] [address]-05-28 09:30:00 Test Item Value Reference Range Interpretation Comments eGFR (test code = eGFR) 94 [place] [address]-05-28 09:30:00 Test Item Value Reference Range Interpretation Comments RBC Morph (test code = Normal (09/22/20 4:30 RBC Morph) AM) [place] [address]-05-28 09:30:00 Test Item Value Reference Range Interpretation Comments Plt Morph (test code = Normal (09/22/20 4:30 Plt Morph) AM) [place] [address]-05-28 09:30:00 Test Item Value Reference Range Interpretation Comments Segs (test code = Segs) 51.3 45.0-75.0 [place] [address]-05-28 09:30:00 Test Item Value Reference Range Interpretation Comments Lymphocytes (test code = Lymphocytes) 29.2 20.0-40.0 [place] [address]-05-28 09:30:00 Test Item Value Reference Range Interpretation Comments Monocytes (test code = Monocytes) 9.9 2.0-12.0 [place] [address]-05-28 09:30:00 Test Item Value Reference Range Interpretation Comments Eosinophils (test code = 8.7 See_Comment [A utomated message] The Eosinophils) system which ge nerated this result tra nsmitted reference range : <=4.0. The reference r abdifatah was not used to int erpret this result as normal/abnormal . [place] [address]-05-28 09:30:00 Test Item Value Reference Range Interpretation Comments Basophils (test code = 0.9 See_Comment [Aut omated message] The Basophils) system which ge nerated this result tra nsmitted reference range : <=1.0. The reference r abdifatah was not used to int erpret this result as normal/abnormal . [place] 657681-05-28 09:30:00 Test Item Value Reference Range Interpretation Comments Neutrophils # (test code = Neutrophils 3.5 1.5-8.1 #) [facility] CenterSkssbcmVXTQHLJJHG6050-57-93 09:30:00 Test Item Value Reference Range Interpretation Comments Lymphocytes # (test code = Lymphocytes 2.0 1.0-5.5 #) [place] 657681-05-28 09:30:00 Test Item Value Reference Range Interpretation Comments Monocytes # (test code 0.7 See_Comment [Aut omated message] The = Monocytes #) system which generated this result tra nsmitted reference range : <=0.8. The reference r abdifatah was not used to int erpret this result as normal/abnormal . [place] 657681-05-28 09:30:00 Test Item Value Reference Range Interpretation Comments Eosinophils # (test code 0.6 See_Comment [A utomated message] The = Eosinophils #) system whic h generated this result tra nsmitted reference range : <=0.5. The reference r abdifatah was not used to int erpret this result as normal/abnormal . [facility] CenterLitsgvjYHEMZMAYVN3803-48-94 09:30:00 Test Item Value Reference Range Interpretation Comments Basophils # (test code 0.1 See_Comment [Aut omated message] The = Basophils #) system which generated this result tra nsmitted reference range : <=0.2. The reference r abdifatah was not used to int erpret this result as normal/abnormal . [facility] CenterDkpynzpSBUYCXWQOC4397-19-42 09:30:00 Test Item Value Reference Range Interpretation Comments WBC (test code = WBC) 6.9 3.7-10.4 [place] 657681-05-28 09:30:00 Test Item Value Reference Range Interpretation Comments RBC (test code = RBC) 2.99 4.20-5.40 [place] 657681-05-28 09:30:00 Test Item Value Reference Range Interpretation Comments Hgb (test code = Hgb) 9.3 12.0-16.0 [place] 657681-05-28 09:30:00 Test Item Value Reference Range Interpretation Comments Hct (test code = Hct) 27.7 36.0-48.0 [place] 657681-05-28 09:30:00 Test Item Value Reference Range Interpretation Comments MCV (test code = MCV) 92.6 80.0-98.0 [place] 657681-05-28 09:30:00 Test Item Value Reference Range Interpretation Comments MCH (test code = MCH) 31.2 pg 27.0-31.0 [place] 657681-05-28 09:30:00 Test Item Value Reference Range Interpretation Comments MCHC (test code = MCHC) 33.7 32.0-36.0 [place] 657681-05-28 09:30:00 Test Item Value Reference Range Interpretation Comments RDW (test code = RDW) 14.4 11.5-14.5 [place] [address]-05-28 09:30:00 Test Item Value Reference Range Interpretation Comments Platelet (test code = Platelet) 301 638-450 [place] 657681-05-28 09:30:00 Test Item Value Reference Range Interpretation Comments MPV (test code = MPV) 7.9 7.4-10.4 [place] 780161-05-27 08:23:00 Test Item Value Reference Range Interpretation Comments Glucose Lvl (test code = Glucose Lvl) 91 70-99 [facility]2021-05-27 08:23:00 Test Item Value Reference Range Interpretation Comments BUN (test code = BUN) 25 7-22 [place] 780161-05-27 08:23:00 Test Item Value Reference Range Interpretation Comments Creatinine Lvl (test code = Creatinine 0.82 0.50-1.40 Lvl) [place] 780161-05-27 08:23:00 Test Item Value Reference Range Interpretation Comments Sodium Lvl (test code = Sodium Lvl) 144 135-145 [place] 780161-05-27 08:23:00 Test Item Value Reference Range Interpretation Comments Potassium Lvl (test code = Potassium 3.6 3.5-5.1 Lvl) [place] 780161-05-27 08:23:00 Test Item Value Reference Range Interpretation Comments Chloride Lvl (test code = Chloride Lvl) 111 95-109 [place] 780161-05-27 08:23:00 Test Item Value Reference Range Interpretation Comments CO2 (test code = CO2) 28 24-32 [place] [id number] 08:23:00 Test Item Value Reference Range Interpretation Comments Calcium Lvl (test code = Calcium Lvl) 8.8 8.5-10.[address]05-27 08:23:00 Test Item Value Reference Range Interpretation Comments Total Protein (test code = Total 5.9 6.4-8.4 Protein) [address]05-27 08:23:00 Test Item Value Reference Range Interpretation Comments Albumin Lvl (test code = Albumin Lvl) 2.2 3.5-5.[address]05-27 08:23:00 Test Item Value Reference Range Interpretation Comments ALT (test code = ALT) 29 See_Comment [Auto mated message] The system which ge nerated this result transmit gill reference range : <=65. The reference range was not used to interpr et this result as len l/abnormal. [address]05-27 08:23:00 Test Item Value Reference Range Interpretation Comments AST (test code = AST) 24 See_Comment [Auto mated message] The system which ge nerated this result transmit gill reference range : <=37. The reference range was not used to interpr et this result as len l/abnormal. [facility] [id number]:23[facility]00 Test Item Value Reference Range Interpretation Comments Alk Phos (test code = Alk Phos) 56 39-136 [facility] [id number] 08:23:00 Test Item Value Reference Range Interpretation Comments Bili Total (test code = Bili Total) 0.2 0.2-1.[address]05-27 08:23:00 Test Item Value Reference Range Interpretation Comments AGAP (test code = AGAP) 8.6 10.0-20.0 [facility] [id number] 08:23:00 Test Item Value Reference Range Interpretation Comments B/C Ratio (test code = B/C Ratio) 30 1 6-25 [facility] [id number] 08:23:00 Test Item Value Reference Range Interpretation Comments Globulin (test code = Globulin) 3.7 2.7-4.2 [facility] [id number] 08:23:00 Test Item Value Reference Range Interpretation Comments A/G Ratio (test code = A/G Ratio) 0.6 1 0.7-1.6 [facility]2021-05-27 08:23:00 Test Item Value Reference Range Interpretation Comments eGFR (test code = eGFR) 80 [place] 657681-05-27 08:23:00 Test Item Value Reference Range Interpretation Comments Segs (test code = Segs) 65.3 45.0-75.0 [place] 657681-05-27 08:23:00 Test Item Value Reference Range Interpretation Comments Lymphocytes (test code = Lymphocytes) 17.0 20.0-40.0 [place] [address]-05-27 08:23:00 Test Item Value Reference Range Interpretation Comments Monocytes (test code = Monocytes) 8.2 2.0-12.0 [place] 657681-05-27 08:23:00 Test Item Value Reference Range Interpretation Comments Eosinophils (test code = 9.1 See_Comment [A utomated message] The Eosinophils) system which ge nerated this result tra nsmitted reference range : <=4.0. The reference r abdifatah was not used to int erpret this result as normal/abnormal . [place] 657681-05-27 08:23:00 Test Item Value Reference Range Interpretation Comments Basophils (test code = 0.4 See_Comment [Aut omated message] The Basophils) system which ge nerated this result tra nsmitted reference range : <=1.0. The reference r abdifatah was not used to int erpret this result as normal/abnormal . [place] 657681-05-27 08:23:00 Test Item Value Reference Range Interpretation Comments Neutrophils # (test code = Neutrophils 5.6 1.5-8.1 #) [place] [address]-05-27 08:23:00 Test Item Value Reference Range Interpretation Comments Lymphocytes # (test code = Lymphocytes 1.4 1.0-5.5 #) [place] [address]-05-27 08:23:00 Test Item Value Reference Range Interpretation Comments Monocytes # (test code 0.7 See_Comment [Aut omated message] The = Monocytes #) system which generated this result tra nsmitted reference range : <=0.8. The reference r abdifatah was not used to int erpret this result as normal/abnormal . [facility]XnlnkmeLRUVUHKJNL7805-02-83 08:23:00 Test Item Value Reference Range Interpretation Comments Eosinophils # (test code 0.8 See_Comment [A utomated message] The = Eosinophils #) system whic h generated this result tra nsmitted reference range : <=0.5. The reference r abdifatah was not used to int erpret this result as normal/abnormal . [facility] CenterGtyralnQFNZAYLWTH2336-46-87 08:23:00 Test Item Value Reference Range Interpretation Comments WBC (test code = WBC) 8.5 3.7-10.4 [facility] CenterYgpzcnmPBYWCTVHGZ8134-67-15 08:23:00 Test Item Value Reference Range Interpretation Comments RBC (test code = RBC) 2.89 4.20-5.40 [facility] CenterArjpzncOJBHYSGKNS4374-08-92 08:23:00 Test Item Value Reference Range Interpretation Comments Hgb (test code = Hgb) 9.3 12.0-16.0 [facility] CenterPjkvccxEIEVRJGRZN4738-76-97 08:23:00 Test Item Value Reference Range Interpretation Comments Hct (test code = Hct) 26.6 36.0-48.0 [facility] CenterNqoolhmGYRRXIPPCI2690-61-68 08:23:00 Test Item Value Reference Range Interpretation Comments MCV (test code = MCV) 92.3 80.0-98.0 [facility] CenterHmvyxhrIAGANZHWUD3697-13-19 08:23:00 Test Item Value Reference Range Interpretation Comments MCH (test code = MCH) 32.2 pg 27.0-31.0 [facility] CenterDuiminrCGDJOZVUZK6765-43-68 08:23:00 Test Item Value Reference Range Interpretation Comments MCHC (test code = MCHC) 34.9 32.0-36.0 [facility] CenterVpggbusMISFDYZOKH4614-98-08 08:23:00 Test Item Value Reference Range Interpretation Comments RDW (test code = RDW) 14.6 11.5-14.5 [facility] CenterClhzzdlKWLYEHPHCN5479-52-12 08:23:00 Test Item Value Reference Range Interpretation Comments Platelet (test code = Platelet) 270 133-450 [facility] CenterUnxllcvESWWMIFXKZ9886-61-52 08:23:00 Test Item Value Reference Range Interpretation Comments MPV (test code = MPV) 7.7 7.4-10.4 [facility]2021-05-26 05:55:00 Test Item Value Reference Range Interpretation Comments Procalcitonin Lvl (test 0.73 See_Comment [Au tomated message] code = Procalcitonin Lvl) Th e system which generated this result transmitted ref erence range: <=0.10. The reference range was not used to interpr et this result as normal/abnormal . [facility] [email or web address] [id number] 05:55:00 Test Item Value Reference Range Interpretation Comments Total Protein (test code = Total 6.4 6.4-8.4 Protein) [facility] [id number] 05:55:00 Test Item Value Reference Range Interpretation Comments Albumin Lvl (test code = Albumin Lvl) 2.4 3.5-5.0 [facility] [email or web address] [id number] 05:55:00 Test Item Value Reference Range Interpretation Comments ALT (test code = ALT) 26 See_Comment [Auto mated message] The system which ge nerated this result transmit gill reference range : <=65. The reference range was not used to interpr et this result as len l/abnormal. [facility] [email or web address] [id number] 05:55:00 Test Item Value Reference Range Interpretation Comments AST (test code = AST) 24 See_Comment [Auto mated message] The system which ge nerated this result transmit gill reference range : <=37. The reference range was not used to interpr et this result as len l/abnormal. [facility] [email or web address] [id number] 05:55:00 Test Item Value Reference Range Interpretation Comments Alk Phos (test code = Alk Phos) 64 39-136 [facility] [email or web address] [id number] 05:55:00 Test Item Value Reference Range Interpretation Comments Bili Total (test code = Bili Total) 0.2 0.2-1.3 [facility] [email or web address] [id number] 05:55:00 Test Item Value Reference Range Interpretation Comments B/C Ratio (test code = B/C Ratio) 26 1 6-25 [facility] [email or web address] [id number] 05:55:00 Test Item Value Reference Range Interpretation Comments Globulin (test code = Globulin) 4.0 2.7-4.2 [facility] [email or web address] [id number] 05:55:00 Test Item Value Reference Range Interpretation Comments A/G Ratio (test code = A/G Ratio) 0.6 1 0.7-1.6 [place] 657681-05-26 05:55:00 Test Item Value Reference Range Interpretation Comments WBC (test code = WBC) 13.1 3.7-10.4 [facility] CenterYqvxgtvBPFSRUJHMZ9996-71-14 05:55:00 Test Item Value Reference Range Interpretation Comments RBC (test code = RBC) 3.73 4.20-5.40 [facility] CenterQdpqtwbTADGRHKYSS2247-57-15 05:55:00 Test Item Value Reference Range Interpretation Comments Hgb (test code = Hgb) 11.5 12.0-16.0 [facility] CenterKtibzurVABBAOYBVK6036-51-03 05:55:00 Test Item Value Reference Range Interpretation Comments Hct (test code = Hct) 34.5 36.0-48.0 [facility] CenterXzdzkyzJLAWHCFJKZ5873-81-66 05:55:00 Test Item Value Reference Range Interpretation Comments MCV (test code = MCV) 92.5 80.0-98.0 [facility] CenterDiyglsyUULZTNJBWS9987-42-70 05:55:00 Test Item Value Reference Range Interpretation Comments MCH (test code = MCH) 30.8 pg 27.0-31.0 [facility] CenterLjrpbchJOYHAOJOIM5592-74-36 05:55:00 Test Item Value Reference Range Interpretation Comments MCHC (test code = MCHC) 33.3 32.0-36.0 [facility] CenterEapyilrUXZNRTSVYS3114-17-61 05:55:00 Test Item Value Reference Range Interpretation Comments RDW (test code = RDW) 14.5 11.5-14.5 [facility] CenterGozotmlUNFXWHZGXC4776-19-20 05:55:00 Test Item Value Reference Range Interpretation Comments Platelet (test code = Platelet) 309 133-450 [facility] CenterTbvkobrHZUCCZXYOD8219-42-39 05:55:00 Test Item Value Reference Range Interpretation Comments MPV (test code = MPV) 8.2 7.4-10.4 [facility] CenterIyhhkmtBMMIIWMOOK2782-28-13 05:55:00 Test Item Value Reference Range Interpretation Comments Segs (test code = Segs) 88.3 45.0-75.0 [place] 657681-05-26 05:55:00 Test Item Value Reference Range Interpretation Comments Lymphocytes (test code = Lymphocytes) 3.4 20.0-40.0 [place] 657681-05-26 05:55:00 Test Item Value Reference Range Interpretation Comments Monocytes (test code = Monocytes) 3.5 2.0-12.0 [place] 657681-05-26 05:55:00 Test Item Value Reference Range Interpretation Comments Eosinophils (test code = 4.1 See_Comment [A utomated message] The Eosinophils) system which ge nerated this result tra nsmitted reference range : <=4.0. The reference r abdifatah was not used to int erpret this result as normal/abnormal . [place] 657681-05-26 05:55:00 Test Item Value Reference Range Interpretation Comments Basophils (test code = 0.7 See_Comment [Aut omated message] The Basophils) system which ge nerated this result tra nsmitted reference range : <=1.0. The reference r abdifatah was not used to int erpret this result as normal/abnormal . [facility] CenterDoexyyfQPODSCXYGF3821-15-87 05:55:00 Test Item Value Reference Range Interpretation Comments Neutrophils # (test code = Neutrophils 11.6 1.5-8.1 #) [place] 657681-05-26 05:55:00 Test Item Value Reference Range Interpretation Comments Lymphocytes # (test code = Lymphocytes 0.4 1.0-5.5 #) [facility] CenterOmoofqpRZPIKNTKWM7073-89-94 05:55:00 Test Item Value Reference Range Interpretation Comments Monocytes # (test code 0.5 See_Comment [Aut omated message] The = Monocytes #) system which generated this result tra nsmitted reference range : <=0.8. The reference r abdifatah was not used to int erpret this result as normal/abnormal . [place] 657681-05-26 05:55:00 Test Item Value Reference Range Interpretation Comments Eosinophils # (test code 0.5 See_Comment [A utomated message] The = Eosinophils #) system whic h generated this result tra nsmitted reference range : <=0.5. The reference r abdifatah was not used to int erpret this result as normal/abnormal . [facility] CenterMnvlyvuFMRTXCKPQN2538-61-14 05:55:00 Test Item Value Reference Range Interpretation Comments Basophils # (test code 0.1 See_Comment [Aut omated message] The = Basophils #) system which generated this result tra nsmitted reference range : <=0.2. The reference r abdifatah was not used to int erpret this result as normal/abnormal . [facility] CenterHwjqspcAGSGLAADQX5046-24-41 15:51:00 Test Item Value Reference Range Interpretation Comments Basophils # (test code 0.1 See_Comment [Aut omated message] The = Basophils #) system which generated this result tra nsmitted reference range : <=0.2. The reference r abdifatah was not used to int erpret this result as normal/abnormal . [facility]2021-05-24 05:39:00 Test Item Value Reference Range Interpretation Comments Glucose Lvl (test code = Glucose Lvl) 100 70-99 [place] 780161-05-24 05:39:00 Test Item Value Reference Range Interpretation Comments BUN (test code = BUN) 21 7-22 [place] 780161-05-24 05:39:00 Test Item Value Reference Range Interpretation Comments Creatinine Lvl (test code = Creatinine 0.89 0.50-1.40 Lvl) [place] 780161-05-24 05:39:00 Test Item Value Reference Range Interpretation Comments Sodium Lvl (test code = Sodium Lvl) 144 135-145 [place] 780161-05-24 05:39:00 Test Item Value Reference Range Interpretation Comments Potassium Lvl (test code = Potassium 4.1 3.5-5.1 Lvl) [place] 780161-05-24 05:39:00 Test Item Value Reference Range Interpretation Comments Chloride Lvl (test code = Chloride Lvl) 110 95-109 [place] 780161-05-24 05:39:00 Test Item Value Reference Range Interpretation Comments CO2 (test code = CO2) 30 24-32 [place] 780161-05-24 05:39:00 Test Item Value Reference Range Interpretation Comments Calcium Lvl (test code = Calcium Lvl) 8.9 8.5-10.5 [place] 780161-05-24 05:39:00 Test Item Value Reference Range Interpretation Comments AGAP (test code = AGAP) 8.1 10.0-20.0 [place] 780161-05-24 05:39:00 Test Item Value Reference Range Interpretation Comments eGFR (test code = eGFR) 73 [facility] CenterTsrjhdwZUZXVMTHCC1981-62-99 05:39:00 Test Item Value Reference Range Interpretation Comments WBC (test code = WBC) 7.9 3.7-10.4 [facility] CenterDuxdlshHYMLRKBVBC3991-27-40 05:39:00 Test Item Value Reference Range Interpretation Comments RBC (test code = RBC) 3.06 4.20-5.40 [facility] CenterNwfalekOUESMTAIYK9194-11-48 05:39:00 Test Item Value Reference Range Interpretation Comments Hgb (test code = Hgb) 9.8 12.0-16.0 [facility] CenterXjafeqcVWVIQHFKPP0557-93-14 05:39:00 Test Item Value Reference Range Interpretation Comments Hct (test code = Hct) 28.6 36.0-48.0 [facility] CenterGsyicthVCPUCJWZSZ1695-40-61 05:39:00 Test Item Value Reference Range Interpretation Comments MCV (test code = MCV) 93.3 80.0-98.0 [facility] CenterCrfmnmuFWMPIQWGKP0205-44-18 05:39:00 Test Item Value Reference Range Interpretation Comments MCH (test code = MCH) 32.0 pg 27.0-31.0 [facility] CenterEuitaeyWATYNWEVKJ4980-76-07 05:39:00 Test Item Value Reference Range Interpretation Comments MCHC (test code = MCHC) 34.3 32.0-36.0 [facility] CenterDzyregcOKTWECKFSK9032-71-60 05:39:00 Test Item Value Reference Range Interpretation Comments RDW (test code = RDW) 14.1 11.5-14.5 [facility] CenterIsxzmwiESETGGQZMK0194-17-65 05:39:00 Test Item Value Reference Range Interpretation Comments Platelet (test code = Platelet) 274 133-450 [facility] CenterHfvysuuAEBCCGSCBP0217-53-23 05:39:00 Test Item Value Reference Range Interpretation Comments MPV (test code = MPV) 8.1 7.4-10.4 [facility] CenterWrbteqkLTPGIOZZNI0566-81-33 05:39:00 Test Item Value Reference Range Interpretation Comments Segs (test code = Segs) 67.3 45.0-75.0 [facility] CenterJazsbtrAPKUVCRTNL7637-22-49 05:39:00 Test Item Value Reference Range Interpretation Comments Lymphocytes (test code = Lymphocytes) 14.3 20.0-40.0 [facility] CenterHrsxswkRSXMEAZKGV1960-48-95 05:39:00 Test Item Value Reference Range Interpretation Comments Monocytes (test code = Monocytes) 10.9 2.0-12.0 [place] 657681-05-24 05:39:00 Test Item Value Reference Range Interpretation Comments Eosinophils (test code = 6.7 See_Comment [A utomated message] The Eosinophils) system which ge nerated this result tra nsmitted reference range : <=4.0. The reference r abdifatah was not used to int erpret this result as normal/abnormal . [place] 657681-05-24 05:39:00 Test Item Value Reference Range Interpretation Comments Basophils (test code = 0.8 See_Comment [Aut omated message] The Basophils) system which ge nerated this result tra nsmitted reference range : <=1.0. The reference r abdifatah was not used to int erpret this result as normal/abnormal . [place] 657681-05-24 05:39:00 Test Item Value Reference Range Interpretation Comments Neutrophils # (test code = Neutrophils 5.3 1.5-8.1 #) [place] 657681-05-24 05:39:00 Test Item Value Reference Range Interpretation Comments Lymphocytes # (test code = Lymphocytes 1.1 1.0-5.5 #) [place] 657681-05-24 05:39:00 Test Item Value Reference Range Interpretation Comments Monocytes # (test code 0.9 See_Comment [Aut omated message] The = Monocytes #) system which generated this result tra nsmitted reference range : <=0.8. The reference r abdifatah was not used to int erpret this result as normal/abnormal . [place] 657681-05-24 05:39:00 Test Item Value Reference Range Interpretation Comments Eosinophils # (test code 0.5 See_Comment [A utomated message] The = Eosinophils #) system whic h generated this result tra nsmitted reference range : <=0.5. The reference r abdifatah was not used to int erpret this result as normal/abnormal . [place] 657681-05-24 05:39:00 Test Item Value Reference Range Interpretation Comments Basophils # (test code 0.1 See_Comment [Aut omated message] The = Basophils #) system which generated this result tra nsmitted reference range : <=0.2. The reference r abdifatah was not used to int erpret this result as normal/abnormal . [facility]2021-05-24 02:08:00 Test Item Value Reference Range Interpretation Comments Reason for Order (test Enteric fever (09/17/20 code = Reason for 9:08 PM) Order) [facility]2021-05-24 02:08:00 Test Item Value Reference Range Interpretation Comments Campylobacter grp (test Not Detected code = Campylobacter grp) (09/17/20 9:08 PM) [facility]2021-05-24 02:08:00 Test Item Value Reference Range Interpretation Comments Salmonella spp. (test Not Detected (09/17/20 code = Salmonella spp.) 9:08 PM) [facility]2021-05-24 02:08:00 Test Item Value Reference Range Interpretation Comments Shigella spp. (test Not Detected (09/17/20 code = Shigella spp.) 9:08 PM) [facility]2021-05-24 02:08:00 Test Item Value Reference Range Interpretation Comments Vibrio grp (test code Not Detected (09/17/20 = Vibrio grp) 9:08 PM) [facility]2021-05-24 02:08:00 Test Item Value Reference Range Interpretation Comments Yersinia enterocolitica Not Detected (test code = Yersinia (09/17/20 9:08 PM) enterocolitica) [facility]2021-05-24 02:08:00 Test Item Value Reference Range Interpretation Comments Shiga Toxin I (test Not Detected (09/17/20 code = Shiga Toxin I) 9:08 PM) [facility]2021-05-24 02:08:00 Test Item Value Reference Range Interpretation Comments Shiga Toxin II (test Not Detected (09/17/20 code = Shiga Toxin 9:08 PM) II) [place] 510521-05-24 02:08:00 Test Item Value Reference Range Interpretation Comments Norovirus (GI/GII) Not Detected (09/17/20 (test code = Norovirus 9:08 PM) (GI/GII)) [facility]2021-05-24 02:08:00 Test Item Value Reference Range Interpretation Comments Rotavirus (grp A) (test Not Detected (09/17/20 code = Rotavirus (grp 9:08 PM) A)) [facility] [id number] 02:08:00 Test Item Value Reference Range Interpretation Comments C difficile DNA (test Negative (09/17/20 9:08 code = C difficile DNA) PM) [facility] [id number] 14:13:00 Test Item Value Reference Range Interpretation Comments Tube Num CSF (test code = Tube Num CSF) 3 1 [facility]2021-05-23 14:13:00 Test Item Value Reference Range Interpretation Comments Color CSF (test code Colorless (09/17/20 9:13 = Color CSF) AM) [facility]2021-05-23 14:13:00 Test Item Value Reference Range Interpretation Comments Clarity CSF (test code = Clear (09/17/20 9:13 Clarity CSF) AM) [facility]2021-05-23 14:13:00 Test Item Value Reference Range Interpretation Comments Supernat CSF (test Colorless (09/17/20 9:13 code = Supernat CSF) AM) [facility]2021-05-23 14:13:00 Test Item Value Reference Range Interpretation Comments Nucleated Cells CSF 4 See_Comment [Automa gill message] The (test code = Nucleated syste m which generated Cells CSF) this result tra nsmitted reference range : <=53. The reference r abdifatah was not used to int erpret this result as normal/abnormal . [facility]2021-05-23 14:13:00 Test Item Value Reference Range Interpretation Comments RBC CSF (test code = 33 See_Comment [Autom ated message] The RBC CSF) system which ge nerated this result transmit gill reference range : <=03. The reference range was not used to interpr et this result as len l/abnormal. [facility]2021-05-23 14:13:00 Test Item Value Reference Range Interpretation Comments Comment CSF (test Differential not code = Comment CSF) performed on WBC count of less than 5. [facility]2021-05-23 14:13:00 Test Item Value Reference Range Interpretation Comments Tube Num CSF (test code = Tube Num CSF) 1 1 [facility]2021-05-23 14:13:00 Test Item Value Reference Range Interpretation Comments Color CSF (test code Colorless (09/17/20 9:13 = Color CSF) AM) [facility]2021-05-23 14:13:00 Test Item Value Reference Range Interpretation Comments Clarity CSF (test code Slight *ABN*(09/17/20 = Clarity CSF) 9:13 AM) [facility]2021-05-23 14:13:00 Test Item Value Reference Range Interpretation Comments Supernat CSF (test Colorless (09/17/20 9:13 code = Supernat CSF) AM) [facility]2021-05-23 14:13:00 Test Item Value Reference Range Interpretation Comments Nucleated Cells CSF 2 See_Comment [Automa gill message] The (test code = Nucleated syste m which generated Cells CSF) this result tra nsmitted reference range : <=53. The reference r abdifatah was not used to int erpret this result as normal/abnormal . [facility]2021-05-23 14:13:00 Test Item Value Reference Range Interpretation Comments RBC CSF (test code = 690 See_Comment [Autom ated message] The RBC CSF) system which ge nerated this result transmit gill reference range : <=03. The reference range was not used to interpr et this result as len l/abnormal. [facility]2021-05-23 14:13:00 Test Item Value Reference Range Interpretation Comments Comment CSF (test Differential not code = Comment CSF) performed on WBC count of less than 5. [facility]2021-05-23 14:13:00 Test Item Value Reference Range Interpretation Comments Protein CSF (test code = Protein CSF) 64 15-45 [facility] [id number] 14:13:00 Test Item Value Reference Range Interpretation Comments Glucose CSF (test code = Glucose CSF) 57 45-80 [facility] Oruzon4356-12-30 14:13:00 Test Item Value Reference Range Interpretation Comments Gram Stain Report Gram Stain Performed By: (test code = Gram [facility] St[facility] Report) [facility] w/Gram [id number] 14:13:00 Test Item Value Reference Range Interpretation Comments Culture: CSF w/Gram Stain (test No Growth code = Culture: CSF w/Gram Stain) [facility] BwdqdayRZMCTAOUBA2464-20-76 12:07:00 Test Item Value Reference Range Interpretation Comments Vanco Tr (test code = Vanco Tr) 14.6 [place] 100051-05-23 12:07:00 Test Item Value Reference Range Interpretation Comments Vanco Tr TND (test code = Vanco Tr 0800 1 TND) [place] 780161-05-23 06:35:00 Test Item Value Reference Range Interpretation Comments Glucose Lvl (test code = Glucose Lvl) 113 70-99 [place] 780161-05-23 06:35:00 Test Item Value Reference Range Interpretation Comments BUN (test code = BUN) 21 7-22 [place] 780161-05-23 06:35:00 Test Item Value Reference Range Interpretation Comments Creatinine Lvl (test code = Creatinine 1.07 0.50-1.40 Lvl) [place] 780161-05-23 06:35:00 Test Item Value Reference Range Interpretation Comments Sodium Lvl (test code = Sodium Lvl) 142 135-145 [place] 780161-05-23 06:35:00 Test Item Value Reference Range Interpretation Comments Potassium Lvl (test code = Potassium 4.1 3.5-5.1 Lvl) [place] 780161-05-23 06:35:00 Test Item Value Reference Range Interpretation Comments Chloride Lvl (test code = Chloride Lvl) 107 95-109 [place] 780161-05-23 06:35:00 Test Item Value Reference Range Interpretation Comments CO2 (test code = CO2) 28 24-32 [place] 780161-05-23 06:35:00 Test Item Value Reference Range Interpretation Comments Calcium Lvl (test code = Calcium Lvl) 9.3 8.5-10.5 [place] 780161-05-23 06:35:00 Test Item Value Reference Range Interpretation Comments AGAP (test code = AGAP) 11.1 10.0-20.0 [place] 780161-05-23 06:35:00 Test Item Value Reference Range Interpretation Comments eGFR (test code = eGFR) 59 [place] 657681-05-23 06:35:00 Test Item Value Reference Range Interpretation Comments WBC (test code = WBC) 10.1 3.7-10.4 [place] 657681-05-23 06:35:00 Test Item Value Reference Range Interpretation Comments RBC (test code = RBC) 3.07 4.20-5.40 [place] 657681-05-23 06:35:00 Test Item Value Reference Range Interpretation Comments Hgb (test code = Hgb) 9.8 12.0-16.0 [place] 657681-05-23 06:35:00 Test Item Value Reference Range Interpretation Comments Hct (test code = Hct) 28.5 36.0-48.0 [place] 657681-05-23 06:35:00 Test Item Value Reference Range Interpretation Comments MCV (test code = MCV) 93.0 80.0-98.0 [place] 657681-05-23 06:35:00 Test Item Value Reference Range Interpretation Comments MCH (test code = MCH) 31.9 pg 27.0-31.0 [place] 657681-05-23 06:35:00 Test Item Value Reference Range Interpretation Comments MCHC (test code = MCHC) 34.3 32.0-36.0 [facility]hmvyqdMTFJBYIZMY7526-[facility]-40 06:35:00 Test Item Value Reference Range Interpretation Comments RDW (test code = RDW) 14.2 11.5-14.5 [facility] CenterWbemjpzSCOJBHIBOW6761-17-05 06:35:00 Test Item Value Reference Range Interpretation Comments Platelet (test code = Platelet) 271 133-450 [facility] CenterZgoizzjTCMCOHMDBK2671-89-01 06:35:00 Test Item Value Reference Range Interpretation Comments MPV (test code = MPV) 7.8 7.4-10.4 [place] 657681-05-23 06:35:00 Test Item Value Reference Range Interpretation Comments Segs (test code = Segs) 76.2 45.0-75.0 [place] 657681-05-23 06:35:00 Test Item Value Reference Range Interpretation Comments Lymphocytes (test code = Lymphocytes) 8.9 20.0-40.0 [facility] CenterRxcbcrmKIMGULRILE1873-94-40 06:35:00 Test Item Value Reference Range Interpretation Comments Monocytes (test code = Monocytes) 8.4 2.0-12.0 [place] 657681-05-23 06:35:00 Test Item Value Reference Range Interpretation Comments Eosinophils (test code = 5.5 See_Comment [A utomated message] The Eosinophils) system which ge nerated this result tra nsmitted reference range : <=4.0. The reference r abdifatah was not used to int erpret this result as normal/abnormal . [facility] CenterOgwjnpmSJPMACOZHC5171-70-98 06:35:00 Test Item Value Reference Range Interpretation Comments Basophils (test code = 1.0 See_Comment [Aut omated message] The Basophils) system which ge nerated this result tra nsmitted reference range : <=1.0. The reference r abdifatah was not used to int erpret this result as normal/abnormal . [facility] CenterMmipfhcMMLNISAQOW3012-37-80 06:35:00 Test Item Value Reference Range Interpretation Comments Neutrophils # (test code = Neutrophils 7.7 1.5-8.1 #) [facility] CenterPpbhskjOTYFCQTFRC0369-69-87 06:35:00 Test Item Value Reference Range Interpretation Comments Lymphocytes # (test code = Lymphocytes 0.9 1.0-5.5 #) [facility] CenterGcmdinfNMYBIYGEVZ5316-23-88 06:35:00 Test Item Value Reference Range Interpretation Comments Monocytes # (test code 0.9 See_Comment [Aut omated message] The = Monocytes #) system which generated this result tra nsmitted reference range : <=0.8. The reference r abdifatah was not used to int erpret this result as normal/abnormal . [facility] CenterPhalyvjCHSOJENOIJ5464-49-24 06:35:00 Test Item Value Reference Range Interpretation Comments Eosinophils # (test code 0.6 See_Comment [A utomated message] The = Eosinophils #) system whic h generated this result tra nsmitted reference range : <=0.5. The reference r abdifatah was not used to int erpret this result as normal/abnormal . [facility] CenterWsxqpvvOPHMSPNOJF9345-59-02 06:35:00 Test Item Value Reference Range Interpretation Comments Basophils # (test code 0.1 See_Comment [Aut omated message] The = Basophils #) system which generated this result tra nsmitted reference range : <=0.2. The reference r abdifatah was not used to int erpret this result as normal/abnormal . [facility]: [id number] 19:52:00 Test Item Value Reference Range Interpretation Comments Culture: Urine (test >100,000 CFU/mL Yeast code = Culture: Urine) [place] 780161-05-22 10:20:00 Test Item Value Reference Range Interpretation Comments Procalcitonin Lvl (test 1.59 See_Comment [Au tomated message] code = Procalcitonin Lvl) e system which generated this result transmitted ref erence range: <=0.10. The reference range was not used to interpr et this result as normal/abnormal . [facility]2021-05-22 08:43:00 Test Item Value Reference Range Interpretation Comments Magnesium Lvl (test code = Magnesium 1.9 1.8-2.4 Lvl) [place] 780161-05-22 08:43:00 Test Item Value Reference Range Interpretation Comments Phosphorus (test code = Phosphorus) 3.6 2.5-4.5 [place] 780161-05-22 08:43:00 Test Item Value Reference Range Interpretation Comments Glucose Lvl (test code = Glucose Lvl) 140 70-99 [place] 780161-05-22 08:43:00 Test Item Value Reference Range Interpretation Comments BUN (test code = BUN) 23 7-22 [place] 780161-05-22 08:43:00 Test Item Value Reference Range Interpretation Comments Creatinine Lvl (test code = Creatinine 1.23 0.50-1.40 Lvl) [place] 780161-05-22 08:43:00 Test Item Value Reference Range Interpretation Comments Sodium Lvl (test code = Sodium Lvl) 139 135-145 [place] 780161-05-22 08:43:00 Test Item Value Reference Range Interpretation Comments Potassium Lvl (test code = Potassium 4.2 3.5-5.1 Lvl) [place] 780161-05-22 08:43:00 Test Item Value Reference Range Interpretation Comments Chloride Lvl (test code = Chloride Lvl) 105 95-109 [place] 780161-05-22 08:43:00 Test Item Value Reference Range Interpretation Comments CO2 (test code = CO2) 27 24-32 [place] 780161-05-22 08:43:00 Test Item Value Reference Range Interpretation Comments AGAP (test code = AGAP) 11.2 10.0-20.0 [place] 780161-05-22 08:43:00 Test Item Value Reference Range Interpretation Comments Calcium Lvl (test code = Calcium Lvl) 9.2 8.5-10.5 [place] 780161-05-22 08:43:00 Test Item Value Reference Range Interpretation Comments eGFR (test code = eGFR) 50 [place] 657681-05-22 08:43:00 Test Item Value Reference Range Interpretation Comments Segs (test code = Segs) 92.7 45.0-75.0 [place] [address]-05-22 08:43:00 Test Item Value Reference Range Interpretation Comments Lymphocytes (test code = Lymphocytes) 2.2 20.0-40.0 [place] [address]-05-22 08:43:00 Test Item Value Reference Range Interpretation Comments Monocytes (test code = Monocytes) 4.3 2.0-12.0 [place] [address]-05-22 08:43:00 Test Item Value Reference Range Interpretation Comments Eosinophils (test code = 0.6 See_Comment [A utomated message] The Eosinophils) system which ge nerated this result tra nsmitted reference range : <=4.0. The reference r abdifatah was not used to int erpret this result as normal/abnormal . [place] 657681-05-22 08:43:00 Test Item Value Reference Range Interpretation Comments Basophils (test code = 0.2 See_Comment [Aut omated message] The Basophils) system which ge nerated this result tra nsmitted reference range : <=1.0. The reference r abdifatah was not used to int erpret this result as normal/abnormal . [place] 657681-05-22 08:43:00 Test Item Value Reference Range Interpretation Comments Neutrophils # (test code = Neutrophils 17.1 1.5-8.1 #) [address]05-22 08:43:00 Test Item Value Reference Range Interpretation Comments Lymphocytes # (test code = Lymphocytes 0.4 1.0-5.5 #) [address]05-22 08:43:00 Test Item Value Reference Range Interpretation Comments Monocytes # (test code 0.8 See_Comment [Aut omated message] The = Monocytes #) system which generated this result tra nsmitted reference range : <=0.8. The reference r abdifatah was not used to int erpret this result as normal/abnormal . [facility] CenterFscjeyvCCTLSJYPVT2302-56-02 08:43:00 Test Item Value Reference Range Interpretation Comments Eosinophils # (test code 0.1 See_Comment [A utomated message] The = Eosinophils #) system whic h generated this result tra nsmitted reference range : <=0.5. The reference r abdifatah was not used to int erpret this result as normal/abnormal . [facility] CenterNjcwdygJWRTEBBGZI4844-62-16 08:43:00 Test Item Value Reference Range Interpretation Comments WBC (test code = WBC) 18.5 3.7-10.4 [place] 657681-05-22 08:43:00 Test Item Value Reference Range Interpretation Comments RBC (test code = RBC) 3.24 4.20-5.40 [facility] CenterLcvvjnbJYOKKGWUBD1764-51-12 08:43:00 Test Item Value Reference Range Interpretation Comments Hgb (test code = Hgb) 10.0 12.0-16.0 [facility] CenterThtynqdJZBHYASQBU2869-77-76 08:43:00 Test Item Value Reference Range Interpretation Comments Hct (test code = Hct) 29.9 36.0-48.0 [facility] CenterUedrbwxCDUSFUJDEF8058-44-51 08:43:00 Test Item Value Reference Range Interpretation Comments MCV (test code = MCV) 92.5 80.0-98.0 [facility] CenterEbrnxwzFXJCZBTGQQ8930-57-18 08:43:00 Test Item Value Reference Range Interpretation Comments MCH (test code = MCH) 30.9 pg 27.0-31.0 [facility] CenterBwyceteVQUQPEUIAT9840-37-90 08:43:00 Test Item Value Reference Range Interpretation Comments MCHC (test code = MCHC) 33.4 32.0-36.0 [facility] CenterTkgnpfwLUIHPTEKQC9268-85-65 08:43:00 Test Item Value Reference Range Interpretation Comments RDW (test code = RDW) 13.8 11.5-14.5 [place] 657681-05-22 08:43:00 Test Item Value Reference Range Interpretation Comments Platelet (test code = Platelet) 299 133-450 [facility] CenterYoiehpnDBTEJESDPM0272-39-61 08:43:00 Test Item Value Reference Range Interpretation Comments MPV (test code = MPV) 7.6 7.4-10.4 [facility]ZsjwtwlCTDITRMOPX7347-26-58 03:21:00 Test Item Value Reference Range Interpretation Comments Sed Rate (test code = 49 See_Comment [Auto mated message] The Sed Rate) system which ge nerated this result transmit gill reference range : <=20. The reference range was not used to interpr et this result as len l/abnormal. [facility] HospitalEndeymfVVQREADECS7209-72-81 03:21:00 Test Item Value Reference Range Interpretation Comments C-REACTIVE PROTEIN (test code = 16.1 C-REACTIVE PROTEIN) [facility] HospitalCHEM [id number] 03:18:20 Test Item Value Reference Range Interpretation Comments Lactic Acid Lvl (test code = Lactic 1.5 0.5-2.2 Acid Lvl) [facility] HospitalZirbnyaBZMVYRRQLT4734-91-93 02:46:00 Test Item Value Reference Range Interpretation Comments Coronavirus (COVID-19) Not Detected (09/15/20 KASSY (test code = 9:46 PM) Coronavirus (COVID-19) KASSY) [facility]Talk[facility] [id number] 23:20:00 Test Item Value Reference Range Interpretation Comments ABO/Rh (test code = ABO/Rh) A POS [facility] [id number] 23:20:00 Test Item Value Reference Range Interpretation Comments Antibody Scrn (test Negative (09/15/20 6:20 code = Antibody Scrn) PM) [facility] AND [id number] 22:51:00 Test Item Value Reference Range Interpretation Comments UA Color (test code = Yellow *NA*(09/15/20 UA Color) 5:51 PM) [facility] AND [id number] 22:51:00 Test Item Value Reference Range Interpretation Comments UA Turbidity (test code = Clear (09/15/20 5:51 UA Turbidity) PM) [facility] AND [id number] 22:51:00 Test Item Value Reference Range Interpretation Comments UA Spec Grav (test code = UA Spec 1.014 1 Grav) [facility] AND [id number] 22:51:00 Test Item Value Reference Range Interpretation Comments UA pH (test code = UA pH) 7.0 1 5.0-8.0 [facility] AND [id number] 22:51:00 Test Item Value Reference Range Interpretation Comments UA Protein (test code = UA Negative mg/dL Protein) [facility] AND [id number] 22:51:00 Test Item Value Reference Range Interpretation Comments UA Glucose (test code = UA Negative mg/dL Glucose) [facility] AND [id number] 22:51:00 Test Item Value Reference Range Interpretation Comments UA Ketones (test code = UA Trace mg/dL Ketones) [facility] AND [id number] 22:51:00 Test Item Value Reference Range Interpretation Comments UA Bili (test code = Negative *NA*(09/15/20 UA Bili) 5:51 PM) [facility] AND [id number] 22:51:00 Test Item Value Reference Range Interpretation Comments UA Blood (test code = Negative (09/15/20 5:51 UA Blood) PM) [facility] AND [id number] 22:51:00 Test Item Value Reference Range Interpretation Comments UA Urobilinogen (test code = UA no gt 0.1-1.0 Urobilinogen) [facility] AND [id number] 22:51:00 Test Item Value Reference Range Interpretation Comments UA Nitrite (test code Negative (09/15/20 5:51 = UA Nitrite) PM) [facility] AND [id number] 22:51:00 Test Item Value Reference Range Interpretation Comments UA Leuk Est (test Negative (09/15/20 5:51 code = UA Leuk Est) PM) [facility] AND [id number] 22:51:00 Test Item Value Reference Range Interpretation Comments UA Sq Epi (test code = UA Sq Occasional /LPF Epi) [facility] AND [id number] 22:51:00 Test Item Value Reference Range Interpretation Comments UA WBC (test code = 8 See_Comment [Automa gill message] The UA WBC) system which ge nerated this result transmit gill reference range : <=5. The reference range was not used to interpr et this result as len l/abnormal. [facility] AND [id number] 22:51:00 Test Item Value Reference Range Interpretation Comments UA RBC (test code = 3 See_Comment [Automa gill message] The UA RBC) system which ge nerated this result transmit gill reference range : <=2. The reference range was not used to interpr et this result as len l/abnormal. [facility] oJdiannURINE AND [id number] 22:51:00 Test Item Value Reference Range Interpretation Comments UA Bacteria (test code = UA Occasional /HPF Bacteria) [facility] [id number] 22:51:00 Test Item Value Reference Range Interpretation Comments UA Mucus (test code = UA Mucus) Few /LPF [facility] HospitalCARDIAC [id number] 21:33:00 Test Item Value Reference Range Interpretation Comments Total CK (test code = Total CK) 23 12-191 [facility] HospitalCARMediusAC [id number] 21:33:00 Test Item Value Reference Range Interpretation Comments Troponin-I (test code no gt See_Comment [Auto mated message] The = Troponin-I) system which g enerated this result transmit gill reference range : <=0.40. The reference r abdifatah was not used to interpr et this result as len l/abnormal. [facility] [email or web address] [id number] 21:33:00 Test Item Value Reference Range Interpretation Comments Procalcitonin Lvl (test 0.05 See_Comment [Au tomated message] code = Procalcitonin Lvl) Th e system which generated this result transmitted ref erence range: <=0.10. The reference range was not used to interpr et this result as normal/abnormal . [facility] [email or web address] [id number] 21:33:00 Test Item Value Reference Range Interpretation Comments Total Protein (test code = Total 7.5 6.4-8.4 Protein) [facility]ham[facility] [id number] 21:33:00 Test Item Value Reference Range Interpretation Comments Albumin Lvl (test code = Albumin Lvl) 2.9 3.5-5.0 [facility] [email or web address] [id number] 21:33:00 Test Item Value Reference Range Interpretation Comments ALANINE AMINOTRANSFERASE 18 See_Comment [A utomated message] (test code = ALANINE The sys tem which AMINOTRANSFERASE) generated this result transmitted ref erence range: <=65. Th e reference range was not used to int erpret this result as normal/abnormal . [place] 780161-05-21 21:33:00 Test Item Value Reference Range Interpretation Comments ASPARTATE TRANSAMINASE 17 See_Comment [Aut omated message] (test code = ASPARTATE The s ystem which TRANSAMINASE) generated this result transmitted ref erence range: <=37. Th e reference range was not used to interpr et this result as normal/abnormal . [place] 780161-05-21 21:33:00 Test Item Value Reference Range Interpretation Comments Alk Phos (test code = Alk Phos) 47 39-136 [place] 780161-05-21 21:33:00 Test Item Value Reference Range Interpretation Comments Bili Total (test code = Bili Total) 0.2 0.2-1.3 [place] 780161-05-21 21:33:00 Test Item Value Reference Range Interpretation Comments B/C Ratio (test code = B/C Ratio) 19 1 6-25 [place] 780161-05-21 21:33:00 Test Item Value Reference Range Interpretation Comments Globulin (test code = Globulin) 4.6 2.7-4.2 [place] 780161-05-21 21:33:00 Test Item Value Reference Range Interpretation Comments A/G Ratio (test code = A/G Ratio) 0.6 1 0.7-1.6 [place] 780161-05-21 21:33:00 Test Item Value Reference Range Interpretation Comments Lactic Acid Lvl (test code = Lactic 0.9 0.5-2.2 Acid Lvl) [id number] 21:33:00 Test Item Value Reference Range Interpretation Comments S Preg (test code = S Negative *NA*(09/15/20 Preg) 4:33 PM) [place] [address]-05-21 21:33:00 Test Item Value Reference Range Interpretation Comments PT (test code = PT) 13.0 s 12.0-14.7 [place] 657681-05-21 21:33:00 Test Item Value Reference Range Interpretation Comments INR (test code = INR) 0.99 1 0.85-1.17 [place] 657681-05-21 21:33:00 Test Item Value Reference Range Interpretation Comments PTT (test code = PTT) 30.0 s 22.9-35.8 [facility] Hospit[id number] 21:33:00 Test Item Value Reference Range Interpretation Comments Basophils # (test code 0.1 See_Comment [Aut omated message] The = Basophils #) system which generated this result tra nsmitted reference range : <=0.2. The reference r abdifatah was not used to int erpret this result as normal/abnormal . [facility] BrenhamAayoloxPQSEDCOZWS8121-99-79 21:33:00 Test Item Value Reference Range Interpretation Comments Vanco Lvl (test code = Vanco Lvl) 1.6 [facility] [employer] [id number] 11:23:00 Test Item Value Reference Range Interpretation Comments ABO/Rh (test code = ABO/Rh) A POS [facility] [employer] [id number] 11:23:00 Test Item Value Reference Range Interpretation Comments Antibody Scrn (test Negative (08/28/20 6:23 code = Antibody Scrn) AM) [facility]hamInzpqcsNSQMCBMJRL2430-43-40 15:14:00 Test Item Value Reference Range Interpretation Comments Vanco Tr (test code = Vanco Tr) 18.0 [facility] HnlyeplSJRGMTEAGT0702-23-79 15:14:00 Test Item Value Reference Range Interpretation Comments Vanco Tr TND (test code = Vanco Tr 09:30am TND) [facility] [email or web address] [id number] 11:42:00 Test Item Value Reference Range Interpretation Comments Glucose Lvl (test code = Glucose Lvl) 95 70-99 [facility] [email or web address] [id number] 11:42:00 Test Item Value Reference Range Interpretation Comments BUN (test code = BUN) 8 7-22 [facility] [email or web address] [id number] 11:42:00 Test Item Value Reference Range Interpretation Comments Creatinine Lvl (test code = Creatinine 0.53 0.50-1.40 Lvl) [facility] [email or web address] [id number] 11:42:00 Test Item Value Reference Range Interpretation Comments Sodium Lvl (test code = Sodium Lvl) 146 135-145 [facility] [email or web address] [id number] 11:42:00 Test Item Value Reference Range Interpretation Comments Potassium Lvl (test code = Potassium 3.8 3.5-5.1 Lvl) [place] 780161-05-02 11:42:00 Test Item Value Reference Range Interpretation Comments Chloride Lvl (test code = Chloride Lvl) 112 95-109 [place] 780161-05-02 11:42:00 Test Item Value Reference Range Interpretation Comments CO2 (test code = CO2) 27 24-32 [place] 780161-05-02 11:42:00 Test Item Value Reference Range Interpretation Comments Calcium Lvl (test code = Calcium Lvl) 9.0 8.5-10.5 [place] [address]-05-02 11:42:00 Test Item Value Reference Range Interpretation Comments AGAP (test code = AGAP) 10.8 10.0-20.0 [place] 780161-05-02 11:42:00 Test Item Value Reference Range Interpretation Comments eGFR (test code = eGFR) 107 [place] 780161-05-02 11:42:00 Test Item Value Reference Range Interpretation Comments Magnesium Lvl (test code = Magnesium 2.2 1.8-2.4 Lvl) [place] 780161-05-02 11:42:00 Test Item Value Reference Range Interpretation Comments Phosphorus (test code = Phosphorus) 3.1 2.5-4.5 [place] [address]-05-02 11:42:00 Test Item Value Reference Range Interpretation Comments WBC (test code = WBC) 8.2 3.7-10.4 [place] [address]-05-02 11:42:00 Test Item Value Reference Range Interpretation Comments RBC (test code = RBC) 3.01 4.20-5.40 [place] [address]-05-02 11:42:00 Test Item Value Reference Range Interpretation Comments Hgb (test code = Hgb) 10.2 12.0-16.0 [place] [address]-05-02 11:42:00 Test Item Value Reference Range Interpretation Comments Hct (test code = Hct) 29.0 36.0-48.0 [place] [address]-05-02 11:42:00 Test Item Value Reference Range Interpretation Comments MCV (test code = MCV) 96.1 80.0-98.0 [place] [address]-05-02 11:42:00 Test Item Value Reference Range Interpretation Comments MCH (test code = MCH) 33.9 pg 27.0-31.0 [place] 657681-05-02 11:42:00 Test Item Value Reference Range Interpretation Comments MCHC (test code = MCHC) 35.3 32.0-36.0 [place] 657681-05-02 11:42:00 Test Item Value Reference Range Interpretation Comments RDW (test code = RDW) 13.6 11.5-14.5 [place] 657681-05-02 11:42:00 Test Item Value Reference Range Interpretation Comments Platelet (test code = Platelet) 300 133-450 [place] 657681-05-02 11:42:00 Test Item Value Reference Range Interpretation Comments MPV (test code = MPV) 7.3 7.4-10.4 [place] 657681-05-02 11:42:00 Test Item Value Reference Range Interpretation Comments Segs (test code = Segs) 58.7 45.0-75.0 [place] 657681-05-02 11:42:00 Test Item Value Reference Range Interpretation Comments Lymphocytes (test code = Lymphocytes) 27.4 20.0-40.0 [place] 657681-05-02 11:42:00 Test Item Value Reference Range Interpretation Comments Monocytes (test code = Monocytes) 8.9 2.0-12.0 [place] 657681-05-02 11:42:00 Test Item Value Reference Range Interpretation Comments Eosinophils (test code = 4.3 See_Comment [A utomated message] The Eosinophils) system which ge nerated this result tra nsmitted reference range : <=4.0. The reference r abdifatah was not used to int erpret this result as normal/abnormal . [place] 657681-05-02 11:42:00 Test Item Value Reference Range Interpretation Comments Basophils (test code = 0.7 See_Comment [Aut omated message] The Basophils) system which ge nerated this result tra nsmitted reference range : <=1.0. The reference r abdifatah was not used to int erpret this result as normal/abnormal . [place] 657681-05-02 11:42:00 Test Item Value Reference Range Interpretation Comments Neutrophils # (test code = Neutrophils 4.8 1.5-8.1 #) [id number] 11:42:00 Test Item Value Reference Range Interpretation Comments Lymphocytes # (test code = Lymphocytes 2.3 1.0-5.5 #) [facility] CenterVhvwrmgDJSQPCVPBF5769-91-92 11:42:00 Test Item Value Reference Range Interpretation Comments Monocytes # (test code 0.7 See_Comment [Aut omated message] The = Monocytes #) system which generated this result tra nsmitted reference range : <=0.8. The reference r abdifatah was not used to int erpret this result as normal/abnormal . [place] 657681-05-02 11:42:00 Test Item Value Reference Range Interpretation Comments Eosinophils # (test code 0.4 See_Comment [A utomated message] The = Eosinophils #) system whic h generated this result tra nsmitted reference range : <=0.5. The reference r abdifatah was not used to int erpret this result as normal/abnormal . [place] 657681-05-02 11:42:00 Test Item Value Reference Range Interpretation Comments Basophils # (test code 0.1 See_Comment [Aut omated message] The = Basophils #) system which generated this result tra nsmitted reference range : <=0.2. The reference r abdifatah was not used to int erpret this result as normal/abnormal . [facility]2021-05-02 11:42:00 Test Item Value Reference Range Interpretation Comments Ca Ion WB (test code = Ca Ion WB) 1.18 1.05-1.25 [facility]2021-05-02 11:42:00 Test Item Value Reference Range Interpretation Comments Ca Norm WB (test code = Ca Norm WB) 1.22 1.05-1.25 [facility] AND [id number] 19:27:00 Test Item Value Reference Range Interpretation Comments UA Color (test code = Yellow *NA*(08/26/20 2:27 UA Color) PM) [facility] [id number] 19:27:00 Test Item Value Reference Range Interpretation Comments UA Turbidity (test code Marked *ABN*(08/26/20 = UA Turbidity) 2:27 PM) [facility] AND [id number] 19:27:00 Test Item Value Reference Range Interpretation Comments UA Spec Grav (test code = UA Spec 1.013 1 Grav) [facility] AND [id number] 19:27:00 Test Item Value Reference Range Interpretation Comments UA pH (test code = UA pH) 8.0 1 5.0-8.0 [facility] [id number] 19:27:00 Test Item Value Reference Range Interpretation Comments UA Protein (test code = UA Protein) 100 mg/dL [facility] [id number] 19:27:00 Test Item Value Reference Range Interpretation Comments UA Glucose (test code = UA Negative mg/dL Glucose) [facility] [id number] 19:27:00 Test Item Value Reference Range Interpretation Comments UA Ketones (test code = UA Negative mg/dL Ketones) [facility] [id number] 19:27:00 Test Item Value Reference Range Interpretation Comments UA Bili (test code = Negative *NA*(08/26/20 UA Bili) 2:27 PM) [facility] [id number] 19:27:00 Test Item Value Reference Range Interpretation Comments UA Blood (test code = Negative (08/26/20 2:27 UA Blood) PM) [facility] AND [id number] 19:27:00 Test Item Value Reference Range Interpretation Comments UA Urobilinogen (test code = UA no gt 0.1-1.0 Urobilinogen) [facility] [id number] 19:27:00 Test Item Value Reference Range Interpretation Comments UA Nitrite (test code Negative (08/26/20 2:27 = UA Nitrite) PM) [facility] AND [id number] 19:27:00 Test Item Value Reference Range Interpretation Comments UA Leuk Est (test Negative (08/26/20 2:27 code = UA Leuk Est) PM) [facility] AND [id number] 19:27:00 Test Item Value Reference Range Interpretation Comments UA Sq Epi (test code = UA Sq Epi) Many /LPF [facility] [id number] 19:27:00 Test Item Value Reference Range Interpretation Comments UA WBC (test code = 2 See_Comment [Automa gill message] The UA WBC) system which ge nerated this result transmit gill reference range : <=5. The reference range was not used to interpr et this result as len l/abnormal. [place] 983171-04-30 22:38:00 Test Item Value Reference Range Interpretation Comments Coronavirus (COVID-19) Not Detected (08/25/20 KASSY (test code = 5:38 PM) Coronavirus (COVID-19) KASSY) [place] 780161-04-30 22:27:00 Test Item Value Reference Range Interpretation Comments Lactic Acid Lvl (test code = Lactic 1.4 0.5-2.2 Acid Lvl) [place] 983171-04-30 22:10:00 Test Item Value Reference Range Interpretation Comments Hep C Ab (test code = Hep C Ab) NON-REACTIVE [place] 983171-04-30 22:10:00 Test Item Value Reference Range Interpretation Comments Hep Signal to Cut-Off (test code = Hep 0.14 1 Signal to Cut-Off) [place] [address]-04-30 22:10:00 Test Item Value Reference Range Interpretation Comments [facility] HIV 4th GEN (test Negative *NA*(08/25/20 code = CDC HIV 4th 5:10 PM) GEN) [place] 780161-04-30 22:07:00 Test Item Value Reference Range Interpretation Comments Glucose Lvl (test code = Glucose Lvl) 114 70-99 [place] 780161-04-30 22:07:00 Test Item Value Reference Range Interpretation Comments BUN (test code = BUN) 23 7-22 [place] 780161-04-30 22:07:00 Test Item Value Reference Range Interpretation Comments Creatinine Lvl (test code = Creatinine 0.62 0.50-1.40 Lvl) [place] 780161-04-30 22:07:00 Test Item Value Reference Range Interpretation Comments Sodium Lvl (test code = Sodium Lvl) 144 135-145 [place] 780161-04-30 22:07:00 Test Item Value Reference Range Interpretation Comments Potassium Lvl (test code = Potassium 3.4 3.5-5.1 Lvl) [place] 780161-04-30 22:07:00 Test Item Value Reference Range Interpretation Comments Chloride Lvl (test code = Chloride Lvl) 111 95-109 [facility] [id number] 22:07:00 Test Item Value Reference Range Interpretation Comments CO2 (test code = CO2) 28 24-32 [facility] [id number] 22:07:00 Test Item Value Reference Range Interpretation Comments Calcium Lvl (test code = Calcium Lvl) 8.9 8.5-10.5 [facility] [id number] 22:07:00 Test Item Value Reference Range Interpretation Comments AGAP (test code = AGAP) 8.4 10.0-20.0 [facility]2021-04-30 22:07:00 Test Item Value Reference Range Interpretation Comments eGFR (test code = eGFR) 102 [facility] CenterEaqgtbhDLVEBIPMIV0414-69-49 22:07:00 Test Item Value Reference Range Interpretation Comments WBC X 10x3 (test code = WBC X 10x3) 9.6 3.7-10.4 [facility] CenterSovmvetDLUQESOWDQ2583-47-36 22:07:00 Test Item Value Reference Range Interpretation Comments RBC X 10x6 (test code = RBC X 10x6) 3.41 4.20-5.40 [facility] CenterJwzirzzUUNZUWEIUP6505-24-85 22:07:00 Test Item Value Reference Range Interpretation Comments Hgb (test code = Hgb) 11.0 12.0-16.0 [facility] CenterMbluwqkZTJSRAAIRY5423-86-74 22:07:00 Test Item Value Reference Range Interpretation Comments Hct (test code = Hct) 32.6 36.0-48.0 [facility] CenterNddxqskPDVVRRGTFW2469-50-02 22:07:00 Test Item Value Reference Range Interpretation Comments MCV (test code = MCV) 95.7 80.0-98.0 [facility] CenterVuudoyjPLHTRTQTRU2708-39-35 22:07:00 Test Item Value Reference Range Interpretation Comments MCH (test code = MCH) 32.1 pg 27.0-31.0 [facility] CenterQgwpxqvBATUCCCTWL0540-61-48 22:07:00 Test Item Value Reference Range Interpretation Comments MCHC (test code = MCHC) 33.6 32.0-36.0 [facility] CenterYmlktmrEEBCQEHIHY8849-53-16 22:07:00 Test Item Value Reference Range Interpretation Comments RDW (test code = RDW) 13.3 11.5-14.5 [place] 657681-04-30 22:07:00 Test Item Value Reference Range Interpretation Comments Platelet (test code = Platelet) 312 133-450 [facility] CenterPzeryahLDSXEZPSWH6363-75-69 22:07:00 Test Item Value Reference Range Interpretation Comments MPV (test code = MPV) 7.2 7.4-10.4 [facility] CenterZpkchixMFDMOXWROJ4326-70-87 22:07:00 Test Item Value Reference Range Interpretation Comments Segs (test code = Segs) 59.2 45.0-75.0 [facility] CenterIuqeytdTFNZAGMTDY8684-49-99 22:07:00 Test Item Value Reference Range Interpretation Comments Lymphocytes (test code = Lymphocytes) 25.6 20.0-40.0 [place] 657681-04-30 22:07:00 Test Item Value Reference Range Interpretation Comments Monocytes (test code = Monocytes) 11.8 2.0-12.0 [facility] Cent[id number] 22:07:00 Test Item Value Reference Range Interpretation Comments Eosinophils (test code = 2.6 See_Comment [A utomated message] The Eosinophils) system which ge nerated this result tra nsmitted reference range : <=4.0. The reference r abdifatah was not used to int erpret this result as normal/abnormal . [facility] CenterMfpzmlrOHIGSYCSYT6685-59-53 22:07:00 Test Item Value Reference Range Interpretation Comments Basophils (test code = 0.8 See_Comment [Aut omated message] The Basophils) system which ge nerated this result tra nsmitted reference range : <=1.0. The reference r abdifatah was not used to int erpret this result as normal/abnormal . [facility] CenterBlfomfkKMBPYPBQWD7327-62-71 22:07:00 Test Item Value Reference Range Interpretation Comments Neutrophils # (test code = Neutrophils 5.7 1.5-8.1 #) [facility] CenterGwfyyimYIHSYUXOFH8188-38-14 22:07:00 Test Item Value Reference Range Interpretation Comments Lymphocytes # (test code = Lymphocytes 2.5 1.0-5.5 #) [facility] CenterWwplkpzGLBSMCGJIK8736-74-33 22:07:00 Test Item Value Reference Range Interpretation Comments Monocytes # (test code 1.1 See_Comment [Aut omated message] The = Monocytes #) system which generated this result tra nsmitted reference range : <=0.8. The reference r abdifatah was not used to int erpret this result as normal/abnormal . [facility]LnhilspECBMLWUNRP9738-27-31 22:07:00 Test Item Value Reference Range Interpretation Comments Eosinophils # (test code 0.3 See_Comment [A utomated message] The = Eosinophils #) system whic h generated this result tra nsmitted reference range : <=0.5. The reference r abdifatah was not used to int erpret this result as normal/abnormal . [facility] CenterJaxuivqERUMCQJERC8749-86-60 22:07:00 Test Item Value Reference Range Interpretation Comments Basophils # (test code 0.1 See_Comment [Aut omated message] The = Basophils #) system which generated this result tra nsmitted reference range : <=0.2. The reference r abdifatah was not used to int erpret this result as normal/abnormal . [facility] HospitalOwjzgolGGIBPOFGEC8624-42-40 15:56:00 Test Item Value Reference Range Interpretation Comments Vanco Tr (test code = Vanco Tr) 12.8 [facility] HospitalOakfsizVETZSPXRNK3978-26-91 15:56:00 Test Item Value Reference Range Interpretation Comments Vanco Tr TND (test code = Vanco Tr 1000 1 TND) [facility] HospitalJajtkdoNISNHENTST9401-83-98 20:53:00 Test Item Value Reference Range Interpretation Comments Vanco Tr (test code = Vanco Tr) 14.1 [facility] HospitalQyotcweTXEBOTXVLP8536-19-49 20:53:00 Test Item Value Reference Range Interpretation Comments Vanco Tr TND (test code = Vanco Tr 1600 1 TND) [facility] [id number] 10:58:00 Test Item Value Reference Range Interpretation Comments Glucose Lvl (test code = Glucose Lvl) 91 70-99 [facility] [id number] 10:58:00 Test Item Value Reference Range Interpretation Comments BUN (test code = BUN) 6 7-22 [facility] [id number] 10:58:00 Test Item Value Reference Range Interpretation Comments Creatinine Lvl (test code = Creatinine 0.39 0.50-1.40 Lvl) [facility] [id number] 10:58:00 Test Item Value Reference Range Interpretation Comments Sodium Lvl (test code = Sodium Lvl) 141 135-145 [facility]2021-04-26 10:58:00 Test Item Value Reference Range Interpretation Comments Potassium Lvl (test code = Potassium 3.3 3.5-5.1 Lvl) [facility]2021-04-26 10:58:00 Test Item Value Reference Range Interpretation Comments Chloride Lvl (test code = Chloride Lvl) 109 95-109 [place] 780161-04-26 10:58:00 Test Item Value Reference Range Interpretation Comments CO2 (test code = CO2) 25 24-32 [place] 780161-04-26 10:58:00 Test Item Value Reference Range Interpretation Comments Calcium Lvl (test code = Calcium Lvl) 8.7 8.5-10.5 [place] 780161-04-26 10:58:00 Test Item Value Reference Range Interpretation Comments AGAP (test code = AGAP) 10.3 10.0-20.0 [place] 780161-04-26 10:58:00 Test Item Value Reference Range Interpretation Comments eGFR (test code = eGFR) 118 [facility] CenterHosfofbJBDZISPYFH3117-78-18 10:58:00 Test Item Value Reference Range Interpretation Comments WBC (test code = WBC) 7.5 3.7-10.4 [place] 657681-04-26 10:58:00 Test Item Value Reference Range Interpretation Comments RBC (test code = RBC) 2.99 4.20-5.40 [place] 657681-04-26 10:58:00 Test Item Value Reference Range Interpretation Comments Hgb (test code = Hgb) 10.0 12.0-16.0 [place] [address]-04-26 10:58:00 Test Item Value Reference Range Interpretation Comments Hct (test code = Hct) 28.2 36.0-48.0 [place] [address]-04-26 10:58:00 Test Item Value Reference Range Interpretation Comments MCV (test code = MCV) 94.1 80.0-98.0 [place] [address]-04-26 10:58:00 Test Item Value Reference Range Interpretation Comments MCH (test code = MCH) 33.5 pg 27.0-31.0 [place] 657681-04-26 10:58:00 Test Item Value Reference Range Interpretation Comments MCHC (test code = MCHC) 35.6 32.0-36.0 [facility] CenterAoajbkjNDUBAFPKNN9688-93-09 10:58:00 Test Item Value Reference Range Interpretation Comments RDW (test code = RDW) 12.6 11.5-14.5 [place] 657681-04-26 10:58:00 Test Item Value Reference Range Interpretation Comments Platelet (test code = Platelet) 144 133-450 [facility] CenterAshgldtQYINESJMRJ2811-58-06 10:58:00 Test Item Value Reference Range Interpretation Comments MPV (test code = MPV) 8.5 7.4-10.4 [facility] CenterAzlhpcvQGSIECKYFE5972-90-94 10:58:00 Test Item Value Reference Range Interpretation Comments Segs (test code = Segs) 53.7 45.0-75.0 [place] 657681-04-26 10:58:00 Test Item Value Reference Range Interpretation Comments Lymphocytes (test code = Lymphocytes) 34.1 20.0-40.0 [facility] CenterSctixrpDJLTOXMQKT4924-76-92 10:58:00 Test Item Value Reference Range Interpretation Comments Monocytes (test code = Monocytes) 11.1 2.0-12.0 [facility] CenterUourskgTGPRRYXESN3336-32-01 10:58:00 Test Item Value Reference Range Interpretation Comments Eosinophils (test code = 0.7 See_Comment [A utomated message] The Eosinophils) system which ge nerated this result tra nsmitted reference range : <=4.0. The reference r abdifatah was not used to int erpret this result as normal/abnormal . [facility] CenterZckagdkPYBZYVKZZU7530-65-65 10:58:00 Test Item Value Reference Range Interpretation Comments Basophils (test code = 0.4 See_Comment [Aut omated message] The Basophils) system which ge nerated this result tra nsmitted reference range : <=1.0. The reference r abdifatah was not used to int erpret this result as normal/abnormal . [facility] CenterMpswxiaCDYSQRFOSV5017-43-40 10:58:00 Test Item Value Reference Range Interpretation Comments Neutrophils # (test code = Neutrophils 4.0 1.5-8.1 #) [facility] CenterAwfhyumAPIYYATILF2328-21-14 10:58:00 Test Item Value Reference Range Interpretation Comments Lymphocytes # (test code = Lymphocytes 2.6 1.0-5.5 #) [place] 657681-04-26 10:58:00 Test Item Value Reference Range Interpretation Comments Monocytes # (test code 0.8 See_Comment [Aut omated message] The = Monocytes #) system which generated this result tra nsmitted reference range : <=0.8. The reference r abdifatah was not used to int erpret this result as normal/abnormal . [place] 657681-04-26 10:58:00 Test Item Value Reference Range Interpretation Comments Eosinophils # (test code 0.1 See_Comment [A utomated message] The = Eosinophils #) system whic h generated this result tra nsmitted reference range : <=0.5. The reference r abdifatah was not used to int erpret this result as normal/abnormal . [facility]2021-04-25 12:04:00 Test Item Value Reference Range Interpretation Comments Lactic Acid Lvl (test code = Lactic 1.3 0.5-2.2 Acid Lvl) [place] 780161-04-25 09:24:00 Test Item Value Reference Range Interpretation Comments Glucose Lvl (test code = Glucose Lvl) 112 70-99 [place] 780161-04-25 09:24:00 Test Item Value Reference Range Interpretation Comments BUN (test code = BUN) 15 7-22 [place] 780161-04-25 09:24:00 Test Item Value Reference Range Interpretation Comments Creatinine Lvl (test code = Creatinine 0.51 0.50-1.40 Lvl) [place] 780161-04-25 09:24:00 Test Item Value Reference Range Interpretation Comments Sodium Lvl (test code = Sodium Lvl) 141 135-145 [place] 780161-04-25 09:24:00 Test Item Value Reference Range Interpretation Comments Potassium Lvl (test code = Potassium 3.7 3.5-5.1 Lvl) [place] 780161-04-25 09:24:00 Test Item Value Reference Range Interpretation Comments Chloride Lvl (test code = Chloride Lvl) 108 95-109 [place] 780161-04-25 09:24:00 Test Item Value Reference Range Interpretation Comments CO2 (test code = CO2) 29 24-32 [place] 780161-04-25 09:24:00 Test Item Value Reference Range Interpretation Comments Calcium Lvl (test code = Calcium Lvl) 8.7 8.5-10.5 [place] 780161-04-25 09:24:00 Test Item Value Reference Range Interpretation Comments AGAP (test code = AGAP) 7.7 10.0-20.0 [place] 780161-04-25 09:24:00 Test Item Value Reference Range Interpretation Comments eGFR (test code = eGFR) 109 [place] 657681-04-25 09:24:00 Test Item Value Reference Range Interpretation Comments Segs (test code = Segs) 65.0 45.0-75.0 [place] 657681-04-25 09:24:00 Test Item Value Reference Range Interpretation Comments Lymphocytes (test code = Lymphocytes) 23.4 20.0-40.0 [place] 657681-04-25 09:24:00 Test Item Value Reference Range Interpretation Comments Monocytes (test code = Monocytes) 11.1 2.0-12.0 [place] 657681-04-25 09:24:00 Test Item Value Reference Range Interpretation Comments Eosinophils (test code = 0.2 See_Comment [A utomated message] The Eosinophils) system which ge nerated this result tra nsmitted reference range : <=4.0. The reference r abdifatah was not used to int erpret this result as normal/abnormal . [place] 657681-04-25 09:24:00 Test Item Value Reference Range Interpretation Comments Basophils (test code = 0.3 See_Comment [Aut omated message] The Basophils) system which ge nerated this result tra nsmitted reference range : <=1.0. The reference r abdifatah was not used to int erpret this result as normal/abnormal . [place] 657681-04-25 09:24:00 Test Item Value Reference Range Interpretation Comments Neutrophils # (test code = Neutrophils 7.6 1.5-8.1 #) [place] 657681-04-25 09:24:00 Test Item Value Reference Range Interpretation Comments Lymphocytes # (test code = Lymphocytes 2.7 1.0-5.5 #) [place] 657681-04-25 09:24:00 Test Item Value Reference Range Interpretation Comments Monocytes # (test code 1.3 See_Comment [Aut omated message] The = Monocytes #) system which generated this result tra nsmitted reference range : <=0.8. The reference r abdifatah was not used to int erpret this result as normal/abnormal . [facility] CenterRnyguxsKHNPYVIDXY6006-37-66 09:24:00 Test Item Value Reference Range Interpretation Comments WBC (test code = WBC) 11.7 3.7-10.4 [facility] CenterYfxzfflFWEXJYZEUU6452-48-24 09:24:00 Test Item Value Reference Range Interpretation Comments RBC (test code = RBC) 3.32 4.20-5.40 [facility] CenterDvzkgwpILWDZCIQTR5762-91-38 09:24:00 Test Item Value Reference Range Interpretation Comments Hgb (test code = Hgb) 10.7 12.0-16.0 [facility] CenterSpvqsqsMFIJOCVTJS6413-78-31 09:24:00 Test Item Value Reference Range Interpretation Comments Hct (test code = Hct) 31.3 36.0-48.0 [facility] CenterXnpkpkxPGRDCKAUKY8714-87-65 09:24:00 Test Item Value Reference Range Interpretation Comments MCV (test code = MCV) 94.1 80.0-98.0 [facility] CenterBusymhzISPQCEANQC7150-11-73 09:24:00 Test Item Value Reference Range Interpretation Comments MCH (test code = MCH) 32.3 pg 27.0-31.0 [facility] CenterXbvkjhnAOFCSPIODD5545-04-11 09:24:00 Test Item Value Reference Range Interpretation Comments MCHC (test code = MCHC) 34.3 32.0-36.0 [facility] CenterXzvdmspHGGDQXGPYP5237-23-01 09:24:00 Test Item Value Reference Range Interpretation Comments RDW (test code = RDW) 12.8 11.5-14.5 [facility] CenterEtlljbwGOKHJILKLI4495-90-73 09:24:00 Test Item Value Reference Range Interpretation Comments Platelet (test code = Platelet) 157 133-450 [facility] CenterLawbllyZMGAPDTCVU1375-21-50 09:24:00 Test Item Value Reference Range Interpretation Comments MPV (test code = MPV) 8.4 7.4-10.4 [facility]: Gphtkibrf1567-92-84 13:45:00 Test Item Value Reference Range Interpretation Comments Culture: Anaerobic No Anaerobes Isolated (test code = Culture: After 5 Days Anaerobic) [facility] HospitalCulture: Ezizhinrg9367-37-76 13:45:00 Test Item Value Reference Range Interpretation Comments Culture: Anaerobic Rare Propionibacterium (test code = acnes Culture: Anaerobic) [facility] HospitalGram Stain Xgswcn3665-58-05 13:45:00 Test Item Value Reference Range Interpretation Comments Gram Stain Report Moderate WBC's No (test code = Gram Organisms Seen Stain Report) [facility] Aspirate/Body Fluid/Vzjpmx0824-25-42 13:45:00 Test Item Value Reference Range Interpretation Comments Culture: Aspirate/Body Fluid/Tissue No Growth (test code = Culture: Aspirate/Body Fluid/Tissue) [facility] HospitalGram Stain Ulywrb5117-80-96 13:45:00 Test Item Value Reference Range Interpretation Comments Gram Stain Report Moderate WBC's No (test code = Gram Squamous Epithelial Stain Report) Cells; No Organisms Seen [facility]: Wound/Abscess w/Gram Vcbkt9246-01-86 13:45:00 Test Item Value Reference Range Interpretation Comments Culture: Wound/Abscess w/Gram Stain No Growth (test code = Culture: Wound/Abscess w/Gram Stain) [facility]2021-04-23 08:59:00 Test Item Value Reference Range Interpretation Comments Glucose Lvl (test code = Glucose Lvl) 101 70-99 [facility]2021-04-23 08:59:00 Test Item Value Reference Range Interpretation Comments BUN (test code = BUN) 22 7-22 [facility]2021-04-23 08:59:00 Test Item Value Reference Range Interpretation Comments Creatinine Lvl (test code = Creatinine 0.59 0.50-1.40 Lvl) [facility]2021-04-23 08:59:00 Test Item Value Reference Range Interpretation Comments Sodium Lvl (test code = Sodium Lvl) 143 135-145 [facility]2021-04-23 08:59:00 Test Item Value Reference Range Interpretation Comments Potassium Lvl (test code = Potassium 3.5 3.5-5.1 Lvl) [facility]2021-04-23 08:59:00 Test Item Value Reference Range Interpretation Comments Chloride Lvl (test code = Chloride Lvl) 110 95-109 [place] 780161-04-23 08:59:00 Test Item Value Reference Range Interpretation Comments CO2 (test code = CO2) 24 24-32 [place] 780161-04-23 08:59:00 Test Item Value Reference Range Interpretation Comments Calcium Lvl (test code = Calcium Lvl) 9.2 8.5-10.5 [place] 780161-04-23 08:59:00 Test Item Value Reference Range Interpretation Comments AGAP (test code = AGAP) 12.5 10.0-20.0 [place] 780161-04-23 08:59:00 Test Item Value Reference Range Interpretation Comments eGFR (test code = eGFR) 104 [place] 657681-04-23 08:59:00 Test Item Value Reference Range Interpretation Comments PT (test code = PT) 12.5 s 12.0-14.[address]04-23 08:59:00 Test Item Value Reference Range Interpretation Comments INR (test code = INR) 0.94 1 0.85-1.[address]04-23 08:59:00 Test Item Value Reference Range Interpretation Comments PTT (test code = PTT) 27.7 s 22.9-35.[address]04-23 08:59:00 Test Item Value Reference Range Interpretation Comments WBC (test code = WBC) 6.6 3.7-10.4 [place] [address]-04-23 08:59:00 Test Item Value Reference Range Interpretation Comments RBC (test code = RBC) 4.08 4.20-5.[address]04-23 08:59:00 Test Item Value Reference Range Interpretation Comments Hgb (test code = Hgb) 13.4 12.0-16.0 [address]04-23 08:59:00 Test Item Value Reference Range Interpretation Comments Hct (test code = Hct) 38.8 36.0-48.0 [place] [address]-04-23 08:59:00 Test Item Value Reference Range Interpretation Comments MCV (test code = MCV) 95.1 80.0-98.0 [address]04-23 08:59:00 Test Item Value Reference Range Interpretation Comments MCH (test code = MCH) 32.8 pg 27.0-31.0 [facility]UqivzqfITVWHBVCIU2614-38-56 08:59:00 Test Item Value Reference Range Interpretation Comments MCHC (test code = MCHC) 34.5 32.0-36.0 [facility] CenterCjycmgbIFHFNGSCZI0997-72-53 08:59:00 Test Item Value Reference Range Interpretation Comments RDW (test code = RDW) 13.2 11.5-14.5 [place] 657681-04-23 08:59:00 Test Item Value Reference Range Interpretation Comments Platelet (test code = Platelet) 186 133-450 [facility] CenterXquovxcKTQSEJBZTP4752-78-21 08:59:00 Test Item Value Reference Range Interpretation Comments MPV (test code = MPV) 8.6 7.4-10.4 [place] 657681-04-23 08:59:00 Test Item Value Reference Range Interpretation Comments Segs (test code = Segs) 45.6 45.0-75.0 [place] 657681-04-23 08:59:00 Test Item Value Reference Range Interpretation Comments Lymphocytes (test code = Lymphocytes) 40.5 20.0-40.0 [facility] CenterAovppikKSIFOOOEAB4517-12-33 08:59:00 Test Item Value Reference Range Interpretation Comments Monocytes (test code = Monocytes) 10.2 2.0-12.0 [facility] CenterGifwlvvWNXWQDNRGZ7300-36-50 08:59:00 Test Item Value Reference Range Interpretation Comments Eosinophils (test code = 3.0 See_Comment [A utomated message] The Eosinophils) system which ge nerated this result tra nsmitted reference range : <=4.0. The reference r abdifatah was not used to int erpret this result as normal/abnormal . [facility] CenterXgglapiPCHRLMIWYZ5429-35-34 08:59:00 Test Item Value Reference Range Interpretation Comments Basophils (test code = 0.7 See_Comment [Aut omated message] The Basophils) system which ge nerated this result tra nsmitted reference range : <=1.0. The reference r abdifatah was not used to int erpret this result as normal/abnormal . [place] 657681-04-23 08:59:00 Test Item Value Reference Range Interpretation Comments Neutrophils # (test code = Neutrophils 3.0 1.5-8.1 #) [place] 657681-04-23 08:59:00 Test Item Value Reference Range Interpretation Comments Lymphocytes # (test code = Lymphocytes 2.7 1.0-5.5 #) [facility] CenterXwzdvirFRLTJOBHTS3809-01-08 08:59:00 Test Item Value Reference Range Interpretation Comments Monocytes # (test code 0.7 See_Comment [Aut omated message] The = Monocytes #) system which generated this result tra nsmitted reference range : <=0.8. The reference r abdifatah was not used to int erpret this result as normal/abnormal . [facility] CenterBtciyciSPPKWYXKOY1935-63-41 08:59:00 Test Item Value Reference Range Interpretation Comments Eosinophils # (test code 0.2 See_Comment [A utomated message] The = Eosinophils #) system whic h generated this result tra nsmitted reference range : <=0.5. The reference r abdifatah was not used to int erpret this result as normal/abnormal . [facility] [id number] 20:00:00 Test Item Value Reference Range Interpretation Comments Culture: Urine Specimen contains 3 or (test code = more potential pathogens; Culture: Urine) recommend correlation with urinalysis; if catheterized specimen recommend removal and recollection. If clinical situation warrants please call the laboratory for further testing. [place] [facility] [phone]. [facility] CenterPrwkkktKMDBKBPQFN6213-66-94 11:55:00 Test Item Value Reference Range Interpretation Comments ASA Effect Plt (test code = ASA Effect 483 Plt) [facility] CenterTtjvtumPWJTWMKXOQ8118-27-74 11:55:00 Test Item Value Reference Range Interpretation Comments Plav Effect Plt (test code = Plav 230 Effect Plt) [facility] CenterArjljonETCOUNBBOH3934-59-90 09:32:00 Test Item Value Reference Range Interpretation Comments PT (test code = PT) 12.2 s 12.0-14.7 [facility] CenterRupdkhaROFUUTXFWH5659-91-17 09:32:00 Test Item Value Reference Range Interpretation Comments INR (test code = INR) 0.91 1 0.85-1.17 [facility] CenterCeypwtwCRXIBZXLPB9452-67-10 09:32:00 Test Item Value Reference Range Interpretation Comments PTT (test code = PTT) 29.2 s 22.9-35.8 [facility] SKFNDQK5836-06-19 09:30:00 Test Item Value Reference Range Interpretation Comments ABO/Rh (test code = ABO/Rh) A [facility] VINPCVP7944[facility]53-72 09:30:00 Test Item Value Reference Range Interpretation Comments Antibody Scrn (test Negative (08/16/20 4:30 code = Antibody Scrn) AM) [facility] [id number] 09:30:00 Test Item Value Reference Range Interpretation Comments Procalcitonin Lvl <0.05 ng/mL See_Comment [Automate d message] (test code = The system whic h Procalcitonin Lvl) generated this result transmit gill reference range : <=0.10. The reference range was not used to interpret this result as normal/abnormal . [facility] CenterPtxyoiyFFTUKZOPFO0865-75-16 09:30:00 Test Item Value Reference Range Interpretation Comments Sed Rate (test code = 3 See_Comment [Auto mated message] The Sed Rate) system which ge nerated this result transmit gill reference range : <=20. The reference range was not used to interpr et this result as len l/abnormal. [facility] CenterRtwmfmyRILHDASYPJ6582-06-50 09:30:00 Test Item Value Reference Range Interpretation Comments ACT (TEG) Rapid (test code = ACT (TEG) 89 s 86-118 Rapid) [facility] CenterWwtmwudYHLCLNRRVV3215-72-81 09:30:00 Test Item Value Reference Range Interpretation Comments Split Point Rapid (test code = Split 0.3 min Point Rapid) [facility] CenterAazuqjlWGQDWOFIDT6134-87-46 09:30:00 Test Item Value Reference Range Interpretation Comments R-time Rapid (test code = R-time 0.4 min 0.4-0.7 Rapid) [facility] CenterZlexbokQRGRNDNNYU9138-56-47 09:30:00 Test Item Value Reference Range Interpretation Comments K-time Rapid (test code = K-time 1.4 min 0.6-2.3 Rapid) [facility] CenterBlpuqrmTMSBMXUPDJ2699-88-86 09:30:00 Test Item Value Reference Range Interpretation Comments Angle Rapid (test code = Angle 75 degrees 64-80 Rapid) [facility] CenterTqzgvtdNFVFPQCRXC4072-42-61 09:30:00 Test Item Value Reference Range Interpretation Comments Max Amplitude Rapid (test code = Max 63 mm 52-71 Amplitude Rapid) [facility] CenterQzzrazwKKOLWYJIBQ4809-92-93 09:30:00 Test Item Value Reference Range Interpretation Comments G-value Rapid (test code = G-value 8.6 5.0-11.6 Rapid) [facility]DtredooPTLGDUISFL6962-38-44 09:30:00 Test Item Value Reference Range Interpretation Comments Estimated % Lysis Rapid 0.3 See_Comment [Au tomated message] The (test code = Estimated syste m which generated % Lysis Rapid) this result t ransmitted reference range : <=7.5. The reference r abdifatah was not used to int erpret this result as normal/abnormal . [facility] HospitalUexvynpEZPTZWGHCW5872-81-91 09:30:00 Test Item Value Reference Range Interpretation Comments C-REACTIVE PROTEIN (test code = no gt C-REACTIVE PROTEIN) [place] 983171-04-21 08:43:00 Test Item Value Reference Range Interpretation Comments Coronavirus (COVID-19) Not Detected (08/16/20 KASSY (test code = 3:43 AM) Coronavirus (COVID-19) KASSY) [facility] [id number] 08:20:45 Test Item Value Reference Range Interpretation Comments UA Color (test code = Yellow *NA*(08/16/20 UA Color) 3:20 AM) [facility] [id number] 08:20:45 Test Item Value Reference Range Interpretation Comments UA Turbidity (test code Slight *ABN*(08/16/20 = UA Turbidity) 3:20 AM) [facility] [id number] 08:20:45 Test Item Value Reference Range Interpretation Comments UA Spec Grav (test code = UA Spec 1.019 1 Grav) [facility] [id number] 08:20:45 Test Item Value Reference Range Interpretation Comments UA pH (test code = UA pH) 6.0 1 5.0-8.0 [facility] [id number] 08:20:45 Test Item Value Reference Range Interpretation Comments UA Protein (test code = UA Negative mg/dL Protein) [facility] [id number] 08:20:45 Test Item Value Reference Range Interpretation Comments UA Glucose (test code = UA Negative mg/dL Glucose) [facility] [id number] 08:20:45 Test Item Value Reference Range Interpretation Comments UA Ketones (test code = UA Trace mg/dL Ketones) [facility] [id number] 08:20:45 Test Item Value Reference Range Interpretation Comments UA Bili (test code = Negative *NA*(08/16/20 UA Bili) 3:20 AM) [facility] [id number] 08:20:45 Test Item Value Reference Range Interpretation Comments UA Blood (test code = Negative (08/16/20 3:20 UA Blood) AM) [facility] [id number] 08:20:45 Test Item Value Reference Range Interpretation Comments UA Urobilinogen (test code = UA no gt 0.1-1.0 Urobilinogen) [facility] [id number] 08:20:45 Test Item Value Reference Range Interpretation Comments UA Nitrite (test code Negative (08/16/20 3:20 = UA Nitrite) AM) [facility] [id number] 08:20:45 Test Item Value Reference Range Interpretation Comments UA Leuk Est (test Moderate *ABN*(08/16/20 code = UA Leuk Est) 3:20 AM) [facility] [id number] 08:20:45 Test Item Value Reference Range Interpretation Comments UA Sq Epi (test code = UA Sq Moderate /LPF Epi) [facility] [id number] 08:20:45 Test Item Value Reference Range Interpretation Comments UA WBC (test code = 26 See_Comment [Automa gill message] The UA WBC) system which ge nerated this result transmit gill reference range : <=5. The reference range was not used to interpr et this result as len l/abnormal. [facility] [id number] 08:20:45 Test Item Value Reference Range Interpretation Comments UA RBC (test code = 10 See_Comment [Automa gill message] The UA RBC) system which ge nerated this result transmit gill reference range : <=2. The reference range was not used to interpr et this result as len l/abnormal. [facility] [id number] 08:20:45 Test Item Value Reference Range Interpretation Comments UA Bacteria (test code = UA Occasional /HPF Bacteria) [facility] [id number] 08:20:45 Test Item Value Reference Range Interpretation Comments UA Mucus (test code = UA Mucus) Few /LPF [facility]2021-04-21 08:00:39 Test Item Value Reference Range Interpretation Comments Lactic Acid Lvl (test code = Lactic 1.7 0.5-2.2 Acid Lvl) [place] 983171-04-21 07:07:00 Test Item Value Reference Range Interpretation Comments Hep C Ab (test code = Hep C Ab) NON-REACTIVE [place] 983171-04-21 07:07:00 Test Item Value Reference Range Interpretation Comments Hep Signal to Cut-Off (test code = Hep 0.19 1 Signal to Cut-Off) [place] 983171-04-21 07:07:00 Test Item Value Reference Range Interpretation Comments [facility] HIV 4th GEN (test Negative *NA*(08/16/20 code = CDC HIV 4th 2:07 AM) GEN) [facility]2021-04-20 22:26:00 Test Item Value Reference Range Interpretation Comments Glucose Lvl (test code = Glucose Lvl) 84 70-99 [facility]2021-04-20 22:26:00 Test Item Value Reference Range Interpretation Comments BUN (test code = BUN) 26 7-22 [place] 780161-04-20 22:26:00 Test Item Value Reference Range Interpretation Comments Creatinine Lvl (test code = Creatinine 0.60 0.50-1.40 Lvl) [facility]2021-04-20 22:26:00 Test Item Value Reference Range Interpretation Comments Sodium Lvl (test code = Sodium Lvl) 143 135-145 [place] 780161-04-20 22:26:00 Test Item Value Reference Range Interpretation Comments Potassium Lvl (test code = Potassium 4.3 3.5-5.1 Lvl) [place] 780161-04-20 22:26:00 Test Item Value Reference Range Interpretation Comments Chloride Lvl (test code = Chloride Lvl) 111 95-109 [facility]2021-04-20 22:26:00 Test Item Value Reference Range Interpretation Comments CO2 (test code = CO2) 30 24-32 [place] 780161-04-20 22:26:00 Test Item Value Reference Range Interpretation Comments Calcium Lvl (test code = Calcium Lvl) 9.6 8.5-10.5 [facility] [id number] 22:26:00 Test Item Value Reference Range Interpretation Comments AGAP (test code = AGAP) 6.3 10.0-20.0 [facility] [id number] 22:26:00 Test Item Value Reference Range Interpretation Comments eGFR (test code = eGFR) 103 [facility] CenterBvmmmipAOVNCUACGV6949-54-28 22:26:00 Test Item Value Reference Range Interpretation Comments WBC X 10x3 (test code = WBC X 10x3) 6.1 3.7-10.4 [facility] CenterBhzrqvnUUZTTEYVHF9956-98-62 22:26:00 Test Item Value Reference Range Interpretation Comments RBC X 10x6 (test code = RBC X 10x6) 4.49 4.20-5.40 [facility] CenterZkzmmmaXKOUUFPLBO5476-53-09 22:26:00 Test Item Value Reference Range Interpretation Comments Hgb (test code = Hgb) 14.3 12.0-16.0 [facility] CenterStyretjBSWPALIWWG9240-57-41 22:26:00 Test Item Value Reference Range Interpretation Comments Hct (test code = Hct) 43.1 36.0-48.0 [facility] CenterGurzstwDSHZOUSYEL0534-82-87 22:26:00 Test Item Value Reference Range Interpretation Comments MCV (test code = MCV) 96.0 80.0-98.0 [facility] CenterQqkxqqpSMEYSBJVYQ4435-11-09 22:26:00 Test Item Value Reference Range Interpretation Comments MCH (test code = MCH) 32.0 pg 27.0-31.0 [facility] CenterJbzjswwJCBPXOIDAW3066-60-37 22:26:00 Test Item Value Reference Range Interpretation Comments MCHC (test code = MCHC) 33.3 32.0-36.0 [facility] CenterUlmpvmzNUBNLBXXHT6124-12-20 22:26:00 Test Item Value Reference Range Interpretation Comments RDW (test code = RDW) 13.2 11.5-14.5 [facility] CenterOgvaesuBSPVJFHETX8108-46-75 22:26:00 Test Item Value Reference Range Interpretation Comments Platelet (test code = Platelet) 230 133-450 [facility] CenterXigaydsIWWYNTHOMS3401-40-50 22:26:00 Test Item Value Reference Range Interpretation Comments MPV (test code = MPV) 8.4 7.4-10.4 [place] [address]-04-20 22:26:00 Test Item Value Reference Range Interpretation Comments Segs (test code = Segs) 50.7 45.0-75.0 [place] [address]-04-20 22:26:00 Test Item Value Reference Range Interpretation Comments Lymphocytes (test code = Lymphocytes) 36.2 20.0-40.0 [place] [address]-04-20 22:26:00 Test Item Value Reference Range Interpretation Comments Monocytes (test code = Monocytes) 10.3 2.0-12.0 [place] [address]-04-20 22:26:00 Test Item Value Reference Range Interpretation Comments Eosinophils (test code = 2.1 See_Comment [A utomated message] The Eosinophils) system which ge nerated this result tra nsmitted reference range : <=4.0. The reference r abdifatah was not used to int erpret this result as normal/abnormal . [address]04-20 22:26:00 Test Item Value Reference Range Interpretation Comments Basophils (test code = 0.7 See_Comment [Aut omated message] The Basophils) system which ge nerated this result tra nsmitted reference range : <=1.0. The reference r abdifatah was not used to int erpret this result as normal/abnormal . [place] 657681-04-20 22:26:00 Test Item Value Reference Range Interpretation Comments Neutrophils # (test code = Neutrophils 3.1 1.5-8.1 #) [place] 657681-04-20 22:26:00 Test Item Value Reference Range Interpretation Comments Lymphocytes # (test code = Lymphocytes 2.2 1.0-5.5 #) [place] 657681-04-20 22:26:00 Test Item Value Reference Range Interpretation Comments Monocytes # (test code 0.6 See_Comment [Aut omated message] The = Monocytes #) system which generated this result tra nsmitted reference range : <=0.8. The reference r abdifatah was not used to int erpret this result as normal/abnormal . [place] 657681-04-20 22:26:00 Test Item Value Reference Range Interpretation Comments Eosinophils # (test code 0.1 See_Comment [A utomated message] The = Eosinophils #) system whic h generated this result tra nsmitted reference range : <=0.5. The reference r abdifatah was not used to int erpret this result as normal/abnormal . [facility] Anticoagulant Screen with Reflex To Dyjvmlewpiav4425-25-15 17:47:00 Test Item Value Reference Interpretation Comments Range DRVV Screen Ratio 0.85 <1.20 (test code = 2707) Interpretations (test Negative screen for code = 2406) Lupus Anticoagulant Protime (test code = 12.7 See_Comment [Autom ated 5902-2) message] The system which generated this result transmitted reference range : 11.9 - 14.2 seconds. The reference range was not used to interpret this result as normal/abnormal . INR (test code = 0.98 See_Comment [Automated 6301-6) message] The system which generated this result transmitted reference range : <=5.90. The reference range was not used to interpret this result as normal/abnormal . PTT (test code = 30.9 See_Comment [Automated 03891-0) message] The system which generated this result transmitted reference range : 22.5 - 36.0 seconds. The reference range was not used to interpret this result as normal/abnormal . PTT-LA (test code = 35.7 32.0-41.8 94352-5) Pathologist: (magalys Christiansen M.D. code = 2610) (electonic signature) [facility] Anticoagulant Screen with Reflex To Wikjhuaifgfs8611-40-96 17:47:00 Test Item Value Reference Interpretation Comments Range DRVV Screen Ratio 0.85 <1.20 (test code = 2707) Interpretations (test Negative screen for code = 2406) Lupus Anticoagulant Protime (test code = 12.7 See_Comment [Autom ated 5902-2) message] The system which generated this result transmitted reference range : 11.9 - 14.2 seconds. The reference range was not used to interpret this result as normal/abnormal . INR (test code = 0.98 See_Comment [Automated 6301-6) message] The system which generated this result transmitted reference range : <=5.90. The reference range was not used to interpret this result as normal/abnormal . PTT (test code = 30.9 See_Comment [Automated 92523-8) message] The system which generated this result transmitted reference range : 22.5 - 36.0 seconds. The reference range was not used to interpret this result as normal/abnormal . PTT-LA (test code = 35.7 32.0-41.8 87994-1) Pathologist: (magalys Christiansen M.D. code = 2610) (electonic signature) [facility] To Typhsdbjfdey9585-63-46 17:47:00 Test Item Value Reference Interpretation Comments Range DRVV Screen Ratio 0.85 <1.20 (test code = 2707) Interpretations (test Negative screen for code = 2406) Lupus Anticoagulant Protime (test code = 12.7 See_Comment [Autom ated 5902-2) message] The system which generated this result transmitted reference range : 11.9 - 14.2 seconds. The reference range was not used to interpret this result as normal/abnormal . INR (test code = 0.98 See_Comment [Automated 6301-6) message] The system which generated this result transmitted reference range : <=5.90. The reference range was not used to interpret this result as normal/abnormal . PTT (test code = 30.9 See_Comment [Automated 85936-2) message] The system which generated this result transmitted reference range : 22.5 - 36.0 seconds. The reference range was not used to interpret this result as normal/abnormal . PTT-LA (test code = 35.7 32.0-41.8 97463-1) Pathologist: (magalys Christiansen M.D. code = 2610) (electonic signature) [facility] with Reflex To Iyrntqagxeie2036-89-14 17:47:00 Test Item Value Reference Interpretation Comments Range DRVV Screen Ratio 0.85 <1.20 (test code = 2707) Interpretations (test Negative screen for code = 2406) Lupus Anticoagulant Protime (test code = 12.7 See_Comment [Autom ated 5902-2) message] The system which generated this result transmitted reference range : 11.9 - 14.2 seconds. The reference range was not used to interpret this result as normal/abnormal . INR (test code = 0.98 See_Comment [Automated 6301-6) message] The system which generated this result transmitted reference range : <=5.90. The reference range was not used to interpret this result as normal/abnormal . PTT (test code = 30.9 See_Comment [Automated 38845-3) message] The system which generated this result transmitted reference range : 22.5 - 36.0 seconds. The reference range was not used to interpret this result as normal/abnormal . PTT-LA (test code = 35.7 32.0-41.8 16139-6) Pathologist: (magalys Christiansen M.D. code = 2610) (electonic signature) [facility] with Reflex To Hqcuoqqyxuqj1682-92-40 17:47:00 Test Item Value Reference Interpretation Comments Range DRVV Screen Ratio 0.85 <1.20 (test code = 2707) Interpretations (test Negative screen for code = 2406) Lupus Anticoagulant Protime (test code = 12.7 See_Comment [Autom ated 5902-2) message] The system which generated this result transmitted reference range : 11.9 - 14.2 seconds. The reference range was not used to interpret this result as normal/abnormal . INR (test code = 0.98 See_Comment [Automated 6301-6) message] The system which generated this result transmitted reference range : <=5.90. The reference range was not used to interpret this result as normal/abnormal . PTT (test code = 30.9 See_Comment [Automated 99414-7) message] The system which generated this result transmitted reference range : 22.5 - 36.0 seconds. The reference range was not used to interpret this result as normal/abnormal . PTT-LA (test code = 35.7 32.0-41.8 29217-8) Pathologist: (magalys Christiansen M.D. code = 2610) (electonic signature) [facility] with Reflex To Ezqasvqupmct0885-89-41 17:47:00 Test Item Value Reference Interpretation Comments Range DRVV Screen Ratio 0.85 <1.20 (test code = 2707) Interpretations (test Negative screen for code = 2406) Lupus Anticoagulant Protime (test code = 12.7 See_Comment [Autom ated 5902-2) message] The system which generated this result transmitted reference range : 11.9 - 14.2 seconds. The reference range was not used to interpret this result as normal/abnormal . INR (test code = 0.98 See_Comment [Automated 6811-6) message] The system which generated this result transmitted reference range : <=5.90. The reference range was not used to interpret this result as normal/abnormal . PTT (test code = 30.9 See_Comment [Automated 71304-4) message] The system which generated this result transmitted reference range : 22.5 - 36.0 seconds. The reference range was not used to interpret this result as normal/abnormal . PTT-LA (test code = 35.7 32.0-41.8 16724-6) Pathologist: (test Deacon Christiansen M.D. code = 2610) (electonic signature) [facility]CRE[facility] WITH REFLEX TO [id number] 17:47:00 Test Item Value Reference Range Interpretation Comments DRVV SCREEN RATIO 0.85 <1.20 (BEAKER) (test code = 2707) DRVV INTERPRETATION Negative screen for (BEAKER) (test code = Lupus Anticoagulant 2406) PROTIME (BEAKER) (test 12.7 seconds 11.9-14.2 code = 759) INR (BEAKER) (test code 0.98 <=5.90 = 370) PARTIAL THROMBOPLASTIN 30.9 seconds 22.5-36.0 TIME (BEAKER) (test code = 760) PTT-LA (BEAKER) (test 35.7 32.0-41.8 code = [id number]) [id number] Deacon Christiansen M.D. (BEAKER) (test code = (electonic signature) 2610) Olrv-1-Atsgoqkhfncl I [id number] 14:42:00 Test Item Value Reference Range Interpretation Comments Beta-2 Glycoprotein <9 See_Comment [Automa gill I Ab, IgG (test message] The code = 10616-2) system which generated this result transmitted reference range : < OR = 20 SGU. The reference range was not used to interpr et this result as normal/abnormal . AYESHA (test code = Performing Lab AYESHA) [facility] [employer] [facility] [address] [place] [address] Dawson Portillo MD, PhD, VIC[facility]Beta[facility]Glycoprotein I [id number] 14:42:00 Test Item Value Reference Range Interpretation Comments Beta-2 Glycoprotein <9 See_Comment [Automa gill I Ab, IgM (test message] The code = 21386-3) system which generated this result transmitted reference range : < OR = 20 SMU. The reference range was not used to interpr et this result as normal/abnormal . AYESHA (test code = Performing Lab AYESHA) [employer] [address] [place] [address] Dawson Portillo MD, PhD, [facility] I [id number] 14:42:00 Test Item Value Reference Interpretation Comments Range Beta-2 <9 See_Comment The antiphospho lipid antibody Glycoprotein I syndrome (APS ) lisa Ab, IgA (test clinical-patho logic code = 32454-9) correlation that includesa clinical event (e.g. thrombosis, pre gnancyloss, thrombocytopeni a) and persistent positiveantipho spholipid antibodies (IgM or IgG CARTER>40 MPL/GPL,IgM or IgG anti-b2GPI antibodies ora lupus anticoagulant). International consensusguidel zara for APS suggest waiting at least 12weeks before retesting to confirm antibod ypersistence. The [facility] immunologicalcl assification criteria for api healthcare lupuserythemato renetta (SLE) include testing for isotypeIgA, whi ch has yet to be incorporated into APScriteria. Lo w level antiphospholipi d antibodiesmay s ometimes be detected in the setting ofinfection, dr ug therapy or aging. [Automat ed message] The system whic h generated this result tra nsmitted reference range : < OR = 20 NEGIN. The refere nce range was not used to int erpret this result as len l/abnormal. AYESHA (test code Performing Lab = AYESHA) [employer] [address] [place] [address] Dawson Portillo MD, PhD, [facility] I [id number] 14:42:00 Test Item Value Reference Range Interpretation Comments Beta-2 Glycoprotein <9 See_Comment [Automa gill I Ab, IgG (test message] The code = 08676-8) system which generated this result transmitted reference range : < OR = 20 SGU. The reference range was not used to interpr et this result as normal/abnormal . AYESHA (test code = Performing Lab AYESHA) [employer] [employer] [facility] [address] [place] [address] Dawson Portillo MD, PhD, [facility]Gly[facility] I [id number] 14:42:00 Test Item Value Reference Range Interpretation Comments Beta-2 Glycoprotein <9 See_Comment [Automa gill I Ab, IgM (test message] The code = 90259-0) system which generated this result transmitted reference range : < OR = 20 SMU. The reference range was not used to interpr et this result as normal/abnormal . AYESHA (test code = Performing Lab AYESHA) [facility] [address] [place] [address] Dawson Portillo MD, PhD, [facility]Gly[facility]oprotein I [id number] 14:42:00 Test Item Value Reference Interpretation Comments Range Beta-2 <9 See_Comment The antiphospho lipid antibody Glycoprotein I syndrome (APS ) lisa Ab, IgA (test clinical-patho logic code = 47314-5) correlation that includesa clinical event (e.g. thrombosis, pre gnancyloss, thrombocytopeni a) and persistent positiveantipho spholipid antibodies (IgM or IgG CARTER>40 MPL/GPL,IgM or IgG anti-b2GPI antibodies ora lupus anticoagulant). International consensusguidel zara for APS suggest waiting at least 12weeks before retesting to confirm antibod ypersistence. The [facility] immunologicalcl assification criteria for api healthcare lupuserythemato renetta (SLE) include testing for isotypeIgA, whi ch has yet to be incorporated into APScriteria. Lo w level antiphospholipi d antibodiesmay s ometimes be detected in the setting ofinfection, dr ug therapy or aging. [Automat ed message] The system whic h generated this result tra nsmitted reference range : < OR = 20 NEGIN. The refere nce range was not used to int erpret this result as len l/abnormal. AYESHA (test code Performing Lab = AYESHA) [employer] [facility] [address] [place] [address] Dawson Portillo MD, PhD, [facility]Gly[facility]oprotein I [id number] 14:42:00 Test Item Value Reference Range Interpretation Comments Beta-2 Glycoprotein <9 See_Comment [Automa gill I Ab, IgG (test message] The code = 33485-6) system which generated this result transmitted reference range : < OR = 20 SGU. The reference range was not used to interpr et this result as normal/abnormal . AYESHA (test code = Performing Lab AYESHA) [facility] [address] [place] [address] Dawson Portillo MD, PhD, [facility]Gly[facility] I [id number] 14:42:00 Test Item Value Reference Range Interpretation Comments Beta-2 Glycoprotein <9 See_Comment [Automa gill I Ab, IgM (test message] The code = 69811-6) system which generated this result transmitted reference range : < OR = 20 SMU. The reference range was not used to interpr et this result as normal/abnormal . AYESHA (test code = Performing Lab AYESHA) [facility] [address] [place] [address] Dawson Portillo MD, PhD, [facility]Gly[facility] I [id number] 14:42:00 Test Item Value Reference Interpretation Comments Range Beta-2 <9 See_Comment The antiphospho lipid antibody Glycoprotein I syndrome (APS ) lisa Ab, IgA (test clinical-patho logic code = 56901-8) correlation that includesa clinical event (e.g. thrombosis, pre gnancyloss, thrombocytopeni a) and persistent positiveantipho spholipid antibodies (IgM or IgG CARTER>40 MPL/GPL,IgM or IgG anti-b2GPI antibodies ora lupus anticoagulant). International consensusguidel zara for APS suggest waiting at least 12weeks before retesting to confirm antibod ypersistence. The [facility] immunologicalcl assification criteria for api healthcare lupuserythemato renetta (SLE) include testing for isotypeIgA, whi ch has yet to be incorporated into APScriteria. Lo w level antiphospholipi d antibodiesmay s ometimes be detected in the setting ofinfection, dr ug therapy or aging. [Automat ed message] The system [employer] h generated this result tra nsmitted reference range : < OR = 20 NEGIN. The refere nce range was not used to int erpret this result as len l/abnormal. AYESHA (test code Performing Lab = AYESHA) [employer] [address] [place] [address] Dawson Portillo MD, PhD, [facility]Beta-2-Gly[facility]oprotein I [id number] 14:42:00 Test Item Value Reference Range Interpretation Comments Beta-2 Glycoprotein <9 See_Comment [Automa gill I Ab, IgG (test message] The code = 98589-9) system which generated this result transmitted reference range : < OR = 20 SGU. The reference range was not used to interpr et this result as normal/abnormal . AYESHA (test code = Performing Lab AYESHA) [employer] [address] [place] [address] Dawson Portillo MD, PhD, [facility]Gly[facility]oprotein I [id number] 14:42:00 Test Item Value Reference Range Interpretation Comments Beta-2 Glycoprotein <9 See_Comment [Automa gill I Ab, IgM (test message] The code = 47304-0) system which generated this result transmitted reference range : < OR = 20 SMU. The reference range was not used to interpr et this result as normal/abnormal . AYESHA (test code = Performing Lab AYESHA) [employer] [address] [place] [address] Dawson Portillo MD, PhD, [facility]Gly[facility] I [id number] 14:42:00 Test Item Value Reference Interpretation Comments Range Beta-2 <9 See_Comment The antiphospho lipid antibody Glycoprotein I syndrome (APS ) lisa Ab, IgA (test clinical-patho logic code = 21393-1) correlation that includesa clinical event (e.g. thrombosis, pre gnancyloss, thrombocytopeni a) and persistent positiveantipho spholipid antibodies (IgM or IgG CARTER>40 MPL/GPL,IgM or IgG anti-b2GPI antibodies ora lupus anticoagulant). International consensusguidel zara for APS suggest waiting at least 12weeks before retesting to confirm antibod ypersistence. [email or web address] immunologicalcl assification criteria for api healthcare lupuserythemato renetta (SLE) include testing for isotypeIgA, whi ch has yet to be incorporated into APScriteria. Lo w level antiphospholipi d antibodiesmay s ometimes be detected in the setting ofinfection, dr ug therapy or aging. [Automat ed message] The system [employer] generated this result tra nsmitted reference range : < OR = 20 NEGIN. The refere nce range was not used to int erpret this result as len l/abnormal. AYESHA (test code Performing Lab = AYESHA) [employer] [address] [place] [address] Dawson Portillo MD, PhD, [facility]Beta-2-Gly[facility]oprotein I [id number] 14:42:00 Test Item Value Reference Range Interpretation Comments Beta-2 Glycoprotein <9 See_Comment [Automa gill I Ab, IgG (test message] The code = 59570-2) system which generated this result transmitted reference range : < OR = 20 SGU. The reference range was not used to interpr et this result as normal/abnormal . AYESHA (test code = Performing Lab AYESHA) [employer] [address] [place] [address] Dawson Portillo MD, PhD, [facility]Beta-2-Gly[facility]oprotein I [id number] 14:42:00 Test Item Value Reference Range Interpretation Comments Beta-2 Glycoprotein <9 See_Comment [Automa gill I Ab, IgM (test message] The code = 49666-1) system which generated this result transmitted reference range : < OR = 20 SMU. The reference range was not used to interpr et this result as normal/abnormal . AYESHA (test code = Performing Lab AYESHA) [employer] [address] [place] [address] Dawson Portillo MD, PhD, [facility]-Gly[facility]oprotein I [id number] 14:42:00 Test Item Value Reference Interpretation Comments Range Beta-2 <9 See_Comment The antiphospho lipid antibody Glycoprotein I syndrome (APS ) lisa Ab, IgA (test clinical-patho logic code = 90239-0) correlation that includesa clinical event (e.g. thrombosis, pre gnancyloss, thrombocytopeni a) and persistent positiveantipho spholipid antibodies (IgM or IgG CARTER>40 MPL/GPL,IgM or IgG anti-b2GPI antibodies ora lupus anticoagulant). International consensusguidel zara for APS suggest waiting at least 12weeks before retesting to confirm antibod ypersistence. [facility] immunologicalcl assification criteria for api healthcare lupuserythemato renetta (SLE) include testing for isotypeIgA, whi ch has yet to be incorporated into APScriteria. Lo w level antiphospholipi d antibodiesmay s ometimes be detected in the setting ofinfection, dr ug therapy or aging. [Automat ed message] The system [employer] generated this result tra nsmitted reference range : < OR = 20 NEGIN. The refere nce range was not used to int erpret this result as len l/abnormal. AYESHA (test code Performing Lab = AYESHA) [facility] [employer] [address] [place] [address] Dawson Portillo MD, PhD, [facility]Beta-2-Gly[facility]oprotein I [id number] 14:42:00 Test Item Value Reference Range Interpretation Comments Beta-2 Glycoprotein <9 See_Comment [Automa gill I Ab, IgG (test message] The code = 81071-5) system which generated this result transmitted reference range : < OR = 20 SGU. The reference range was not used to interpr et this result as normal/abnormal . AYESHA (test code = Performing Lab AYESHA) [facility] [employer] [address] [place] [address] Dawson Portillo MD, PhD, VIC[facility]-2[facility]Gly[facility]oprotein I [id number] 14:42:00 Test Item Value Reference Range Interpretation Comments Beta-2 Glycoprotein <9 See_Comment [Automa gill I Ab, IgM (test message] The code = 17567-6) system which generated this result transmitted reference range : < OR = 20 SMU. The reference range was not used to interpr et this result as normal/abnormal . AYESHA (test code = Performing Lab AYESHA) [facility] [address] [place] [address] Dawson Portillo MD, PhD, VIC[facility]Beta-2-Gly[facility]oprotein I [id number] 14:42:00 Test Item Value Reference Interpretation Comments Range Beta-2 <9 See_Comment The antiphospho lipid antibody Glycoprotein I syndrome (APS ) lisa Ab, IgA (test clinical-patho logic code = 77079-3) correlation that includesa clinical event (e.g. thrombosis, pre gnancyloss, thrombocytopeni a) and persistent positiveantipho spholipid antibodies (IgM or IgG CARTER>40 MPL/GPL,IgM or IgG anti-b2GPI antibodies ora lupus anticoagulant). International consensusguidel zara for APS suggest waiting at least 12weeks before retesting to confirm antibod ypersistence. The [facility] immunologicalcl assification criteria for api healthcare lupuserythemato renetta (SLE) include testing for isotypeIgA, whi ch has yet to be incorporated into APScriteria. Lo w level antiphospholipi d antibodiesmay s ometimes be detected in the setting ofinfection, dr ug therapy or aging. [Automat ed message] The system whic h generated this result tra nsmitted reference range : < OR = 20 NEGIN. The refere nce range was not used to int erpret this result as len l/abnormal. AYESHA (test code Performing Lab = AYESHA) [employer] [address] [place] [address] Dawson Portillo MD, PhD, [facility]Beta-2 glycoprotein [id number] 13:01:00 Test Item Value Reference Range Interpretation Comments B2 Glcoprotein Ab Refer to individual Profile (test code = B2-Glycoprotein IgG, 2557) IgM and IgA results. [facility] HospitalBeta-2 glycoprotein [id number] 13:01:00 Test Item Value Reference Range Interpretation Comments B2 Glcoprotein Ab Refer to individual Profile (test code = B2-Glycoprotein IgG, 2557) IgM and IgA results. [facility] HospitalBeta-2 glycoprotein [id number] 13:01:00 Test Item Value Reference Range Interpretation Comments B2 Glcoprotein Ab Refer to individual Profile (test code = B2-Glycoprotein IgG, 2557) IgM and IgA results. [facility] HospitalBeta-2 glycoprotein [id number] 13:01:00 Test Item Value Reference Range Interpretation Comments B2 Glcoprotein Ab Refer to individual Profile (test code = B2-Glycoprotein IgG, 2557) IgM and IgA results. [facility]Beta-2 glycoprotein [id number] 13:01:00 Test Item Value Reference Range Interpretation Comments B2 Glcoprotein Ab Refer to individual Profile (test code = B2-Glycoprotein IgG, 2557) IgM and IgA results. [facility]Beta-2 glycoprotein [id number] 13:01:00 Test Item Value Reference Range Interpretation Comments B2 Glcoprotein Ab Refer to individual Profile (test code = B2-Glycoprotein IgG, 2557) IgM and IgA results. [facility] HospitalValproic acid level, [id number] 10:52:00 Test Item Value Reference Range Interpretation Comments Valproic Acid, Total 86 ug/mL 50-100 (test code = 4086-5) AYESHA (test code = AYESHA) Therapeutic range for some clinical conditions may be >100 ug/mL Lab Interpretation (test Normal code = 45840-3) [facility] HospitalValproic acid level, [id number] 10:52:00 Test Item Value Reference Range Interpretation Comments Valproic Acid, Total 86 ug/mL 50-100 (test code = 4086-5) AYESHA (test code = AYESHA) Therapeutic range for some clinical conditions may be >100 ug/mL Lab Interpretation (test Normal code = 81410-5) [facility] HospitalValproic acid level, [id number] 10:52:00 Test Item Value Reference Range Interpretation Comments Valproic Acid, Total 86 ug/mL 50-100 (test code = 4086-5) AYESHA (test code = AYESHA) Therapeutic range for some clinical conditions may be >100 ug/mL Lab Interpretation (test Normal code = 81881-2) [facility]Valpro[facility] acid level, [id number] 10:52:00 Test Item Value Reference Range Interpretation Comments Valproic Acid, Total 86 ug/mL 50-100 (test code = 4086-5) AYESHA (test code = AYESHA) Therapeutic range for some clinical conditions may be >100 ug/mL Lab Interpretation (test Normal code = 23589-7) [facility] HospitalValpro[facility] acid level, [id number] 10:52:00 Test Item Value Reference Range Interpretation Comments Valproic Acid, Total 86 ug/mL 50-100 (test code = 4086-5) AYESHA (test code = AYESHA) Therapeutic range for some clinical conditions may be >100 ug/mL Lab Interpretation (test Normal code = 26896-8) [facility] HospitalValpro[facility] level, [id number] 10:52:00 Test Item Value Reference Range Interpretation Comments Valproic Acid, Total 86 ug/mL 50-100 (test code = 4086-5) AYESHA (test code = AYESHA) Therapeutic range for some clinical conditions may be >100 ug/mL Lab Interpretation (test Normal code = 24390-4) [facility] HospitalVALPROIC ACID LEVEL, [id number] 10:52:00 Test Item Value Reference Range Interpretation Comments VALPROIC ACID TOTAL (BEAKER) (test 86 ug/mL 50-100 code = 924) Therapeutic range for some clinical conditions may be >100 ug/mL Phosphatidylserine Abs (IgG, IgM)2020-01-09 13:03:00 Test Item Value Reference Interpretation Comments Range PHOSPHATIDYLSERINE <10 U/mL <10 Negative 10-20 AB(IGG) (test code = Equivoc al- Found in small 4650) percentage of the healthy population; may be reactive >20 Positive - Risk factor for thrombosis and loss PHOSPHATIDYLSERINE <25 U/mL The antip hospholipid AB (IGM) (test code antibody syndrome (APS) lisa = [id number]) clinical-pathol ogic correlation indio t includesa clinical event (e.g. thrombosis, pre gnancyloss, thrombocytopeni a) and persistent positiveantipho spholipid antibodies (IgM or IgG CARTER>40 MPL/GPL, IgM or IgG anti-b2GPI anti bodies ora lupus anticoagu lant). International consensusguidel zara for APS suggest waiting at least 12weeks before retesting to confirm antibod ypersistence. The [facility] immunologicalcl assification criteria for sy stemic lupuserythemato renetta (SLE) include testing for isotypeIgA, whi ch has yet to be incorporated into APScriteria. Lo w level antiphospholipi d antibodiesmay s ometimes be detected in the setting ofinfection, dr ug therapy or aging. <25 Negative 25-35 Equivoca l- Found in small percentag e of the h ealthy population; may be reacti ve >35 Positive - Risk factor for thrombosis AYESHA (test code = Performing AYESHA) Lab [facility] [employer] [facility] [address] [place] [address] Dawson Portillo MD, PhD, VICENTE [facility] HospitalPhosphatidylserine Abs (IgG, IgM)2020-01-09 13:03:00 Test Item Value Reference Interpretation Comments Range PHOSPHATIDYLSERINE <10 U/mL <10 Negative 10-20 AB(IGG) (test code = Equivoc al- Found in small 4650) percentage of the healthy population; may be reactive >20 Positive - Risk factor for thrombosis and loss PHOSPHATIDYLSERINE <25 U/mL The antip hospholipid AB (IGM) (test code antibody syndrome (APS) lisa = [id number]) clinical-pathol ogic correlation indio t includesa clinical event (e.g. thrombosis, pre gnancyloss, thrombocytopeni a) and persistent positiveantipho spholipid antibodies (IgM or IgG CARTER>40 MPL/GPL, IgM or IgG anti-b2GPI anti bodies ora lupus anticoagu lant). International consensusguidel zara for APS suggest waiting at least 12weeks before retesting to confirm antibod ypersistence. The [facility] immunologicalcl assification criteria for sy stemic lupuserythemato renetta (SLE) include testing for isotypeIgA, whi ch has yet to be incorporated into APScriteria. Lo w level antiphospholipi d antibodiesmay s ometimes be detected in the setting ofinfection, dr ug therapy or aging. <25 Negative 25-35 Equivoca l- Found in small percentag e of the h ealthy population; may be reacti ve >35 Positive - Risk factor for thrombosis AYESHA (test code = Performing AYESHA) Lab [facility] [address] [place] [address] Dawson Portillo MD, PhD, VICENTE [facility] HospitalPhosphatidylserine Abs (IgG, IgM)2020-01-09 13:03:00 Test Item Value Reference Interpretation Comments Range PHOSPHATIDYLSERINE <10 U/mL <10 Negative 10-20 AB(IGG) (test code = Equivoc al- Found in small 4650) percentage of the healthy population; may be reactive >20 Positive - Risk factor for thrombosis and loss PHOSPHATIDYLSERINE <25 U/mL The antip hospholipid AB (IGM) (test code antibody syndrome (APS) lisa = [id number]) clinical-pathol ogic correlation indio t includesa clinical event (e.g. thrombosis, pre gnancyloss, thrombocytopeni a) and persistent positiveantipho spholipid antibodies (IgM or IgG CARTER>40 MPL/GPL, IgM or IgG anti-b2GPI anti bodies ora lupus anticoagu lant). International consensusguidel zara for APS suggest waiting at least 12weeks before retesting to confirm antibod ypersistence. [facility] immunologicalcl assification criteria for [facility] lupuserythemato renetta (SLE) include testing for isotypeIgA, whi ch has yet to be incorporated into APScriteria. Lo w level antiphospholipi d antibodiesmay s ometimes be detected in the setting ofinfection, dr ug therapy or aging. <25 Negative 25-35 Equivoca l- Found in small percentag e of the h ealthy population; may be reacti ve >35 Positive - Risk factor for thrombosis AYESHA (test code = Performing AYESHA) Lab EZ [employer] [address] [place] [address] Dawson Portillo MD, PhD, VICENTE [facility] HospitalPhosphatidylserine Abs (IgG, IgM)2020-01-09 13:03:00 Test Item Value Reference Interpretation Comments Range PHOSPHATIDYLSERINE <10 U/mL <10 Negative 10-20 AB(IGG) (test code = Equivoc al- Found in small 4650) percentage of the healthy population; may be reactive >20 Positive - Risk factor for thrombosis and loss PHOSPHATIDYLSERINE <25 U/mL The antip hospholipid AB (IGM) (test code antibody syndrome (APS) lisa = [id number]) clinical-pathol ogic correlation indio t includesa clinical event (e.g. thrombosis, pre gnancyloss, thrombocytopeni a) and persistent positiveantipho spholipid antibodies (IgM or IgG CARTER>40 MPL/GPL, IgM or IgG anti-b2GPI anti bodies ora lupus anticoagu lant). International consensusguidel zara for APS suggest waiting at least 12weeks before retesting to confirm antibod ypersistence. [facility] [facility] immunologicalcl assification criteria for [facility] lupuserythemato renetta (SLE) include testing for isotypeIgA, whi ch has yet to be incorporated into APScriteria. Lo w level antiphospholipi d antibodiesmay s ometimes be detected in the setting ofinfection, dr ug therapy or aging. <25 Negative 25-35 Equivoca l- Found in small percentag e of the h ealthy population; may be reacti ve >35 Positive - Risk factor for thrombosis AYESHA (test code = Performing AYESHA) Lab EZ [facility] [address] [place] [address] Dawson Portillo MD, PhD, VICENTE [facility]ser[facility] Abs (IgG, IgM)2020-01-09 13:03:00 Test Item Value Reference Interpretation Comments Range PHOSPHATIDYLSERINE <10 U/mL <10 Negative 10-20 AB(IGG) (test code = Equivoc al- Found in small 4650) percentage of the healthy population; may be reactive >20 Positive - Risk factor for thrombosis and loss PHOSPHATIDYLSERINE <25 U/mL The antip hospholipid AB (IGM) (test code antibody syndrome (APS) lisa = [id number]) clinical-pathol ogic correlation indio t includesa clinical event (e.g. thrombosis, pre gnancyloss, thrombocytopeni a) and persistent positiveantipho spholipid antibodies (IgM or IgG CARTER>40 MPL/GPL, IgM or IgG anti-b2GPI anti bodies ora lupus anticoagu lant). International consensusguidel zara for APS suggest waiting at least 12weeks before retesting to confirm antibod ypersistence. [facility] immunologicalcl assification criteria for sy stemic lupuserythemato renetta (SLE) include testing for isotypeIgA, whi ch has yet to be incorporated into APScriteria. Lo w level antiphospholipi d antibodiesmay s ometimes be detected in the setting ofinfection, dr ug therapy or aging. <25 Negative 25-35 Equivoca l- Found in small percentag e of the h ealthy population; may be reacti ve >35 Positive - Risk factor for thrombosis AYESHA (test code = Performing AYESHA) Lab EZ [facility] [address] [place] [address] Dawson Portillo MD, PhD, VICENTE [facility]ser[facility] Abs (IgG, IgM)2020-01-09 13:03:00 Test Item Value Reference Interpretation Comments Range PHOSPHATIDYLSERINE <10 U/mL <10 Negative 10-20 AB(IGG) (test code = Equivoc al- Found in small 4650) percentage of the healthy population; may be reactive >20 Positive - Risk factor for thrombosis and loss PHOSPHATIDYLSERINE <25 U/mL The antip hospholipid AB (IGM) (test code antibody syndrome (APS) lisa = [id number]) clinical-pathol ogic correlation indio t includesa clinical event (e.g. thrombosis, pre gnancyloss, thrombocytopeni a) and persistent positiveantipho spholipid antibodies (IgM or IgG CARTER>40 MPL/GPL, IgM or IgG anti-b2GPI anti bodies ora lupus anticoagu lant). International consensusguidel zara for APS suggest waiting at least 12weeks before retesting to confirm antibod ypersistence. [facility] immunologicalcl assification criteria for sy stemic lupuserythemato renetta (SLE) include testing for isotypeIgA, whi ch has yet to be incorporated into APScriteria. Lo w level antiphospholipi d antibodiesmay s ometimes be detected in the setting ofinfection, dr ug therapy or aging. <25 Negative 25-35 Equivoca l- Found in small percentag e of the h ealthy population; may be reacti ve >35 Positive - Risk factor for thrombosis AYESHA (test code = Performing AYESHA) Lab EZ [facility] [address] [place] [address] Dawson Portillo MD, PhD, VICENTE [facility] ([facility]ip[facility]) 2020-01-09 00:00:00 Test Item Value Reference Range Interpretation Comments Result (test code = No growth in 5 days 6463-4) [facility] Culture - Routine (Right Venipuncture) 2020-01-09 00:00:00 Test Item Value Reference Range Interpretation Comments Result (test code = No growth in 5 days 6463-4) [facility] Culture - Routine (Right Venipuncture) 2020-01-09 00:00:00 Test Item Value Reference Range Interpretation Comments Result (test code = No growth in 5 days 6463-4) [facility] Culture - Routine (Right Venipuncture) 2020-01-09 00:00:00 Test Item Value Reference Range Interpretation Comments Result (test code = No growth in 5 days 6463-4) [facility] Culture - Routine (Right Venipuncture) 2020-01-09 00:00:00 Test Item Value Reference Range Interpretation Comments Result (test code = No growth in 5 days 6463-4) [id number] [facility]00 Test Item Value Reference Range Interpretation Comments CULTURE (BEAKER) (test No growth in 5 days code = 1095) BLOOD [id number] 00:00:00 Test Item Value Reference Range Interpretation Comments CULTURE (BEAKER) (test No growth in 5 days code = 1095) ECG 12 [id number] 08:23:08Interface, External Ris In 01/08/2020 8:23 AM CDTVentricular Rate 51 BPMAtrial Rate 51 BPMP-R Interval 184 msQRS Duration 100 msQ-T Interval 454 msQTC Calculation(Bazett) 418 msP [place] 6 degreesR [place] 1 degreesT [place] 226 degreesSinus bradycardiaLeft ventricular hypertrophy with repolarization abnormalityAbnormal ECGWhen compared with ECG of 06-Jan-2020:37,No significant change was foundConfirmedjo JOYCE MD, JOSEPH P ([id number]) on 01/08/2020 8:23:02 [facility] [id number] 08:23:08 Interface, External Ris In 01/08/2020 8:23 AM CDTVentricular Rate 51 BPMAtrial Rate 51 BPMP-R Interval 184 msQRS Duration 100 msQ-T Interval 454 msQTC Calculation(Bazett) 418 msP [place] 6 degreesR [place] 1 degreesT [place] 226 degreesSinus bradycardiaLeft ventricular hypertrophy with repolarization abnorma lityAbnormal ECGWhen compared with ECG of 06-Jan-2020:37,No significant change was foundConfirmedjo JOYCE MD, JOSEPH P ([id number]) on 01/08/2020 8:23:02 [facility] [id number] 08:23:08Interface, External Ris In 01/08/2020 8:23 AM CDTVentricular Rate 51 BPMAtrial Rate 51 BPMP-R Interval 184 msQRS Duration 100 msQ-T Interval 454 msQTC Calculation(Bazett) 418 msP [place] 6 degreesR [place] 1 degreesT [place] 226 degreesSinus bradycardiaLeft ventricular hypertrophy with repolarization abnormalityAbnormal ECGWhen compared with ECG of 06-Jan-2020:37,No significant change was foundConfirmedjo JOYCE MD, JOSEPH P ([id number]) on 01/08/2020 8:23:02 [facility] ECG 12 [id number] 08:23:08Interface, External Ris In 01/08/2020 8:23 AM CDTVentricular Rate 51 BPMAtrial Rate 51 BPMP-R Interval 184 msQRS Duration 100 msQ-T Interval 454 msQTC Calculation(Bazett) 418 msP [place] 6 degreesR [place] 1 degreesT [place] 226 degreesSinus bradycardiaLeft ventricular hypertrophy with repolarization abnormalityAbnormal ECGWhen compared with ECG of 06-Jan-2020:37,No significant change was foundConfirjazmyne JOYCE MD, JOSEPH P ([id number]) on 01/08/2020 8:23:02 [facility] [id number] 08:23:08 Interface, External Ris In - 01/08/2020 8:23 AM CDTVentricular Rate 51 BPMAtrial Rate 51 BPMP-R Interval 184 msQRS Duration 100 msQ-T Interval 454 msQTC Calculation(Bazett) 418 msP [place] 6 degreesR [place] 1 degreesT [place] 226 degreesSinus bradycardiaLeft ventricular hypertrophy with repolarization abnorma lityAbnormal ECGWhen compared with ECG of 06-JAN-2020 20:37,No significant change was foundConfirmedby MD ISIAH, JORI Thompson ([id number]) on 01/08/2020 8:23:02 [facility] CenterAntithrombin [id number] 13:01:00 Test Item Value Reference Range Interpretation Comments Antithrombin III (test code = 33048-0) 91.0 % 80-120 Lab Interpretation (test code = Normal 56086-5) [facility] [id number] 13:01:00 Test Item Value Reference Range Interpretation Comments Antithrombin III (test code = 71129-0) 91.0 % 80-120 Lab Interpretation (test code = Normal 62888-5) [facility] [id number] 13:01:00 Test Item Value Reference Range Interpretation Comments Antithrombin III (test code = 35096-8) 91.0 % 80-120 Lab Interpretation (test code = Normal 76139-6) [facility] [id number] 13:01:00 Test Item Value Reference Range Interpretation Comments Antithrombin III (test code = 22150-4) 91.0 % 80-120 Lab Interpretation (test code = Normal 10725-3) [facility] [id number] 13:01:00 Test Item Value Reference Range Interpretation Comments Antithrombin III (test code = 03728-3) 91.0 % 80-120 Lab Interpretation (test code = Normal 25248-8) [facility] [id number] 13:01:00 Test Item Value Reference Range Interpretation Comments Antithrombin III (test code = 03677-7) 91.0 % 80-120 Lab Interpretation (test code = Normal 50906-0) [facility] [id number] 13:01:00 Test Item Value Reference Range Interpretation Comments ANTITHROMBIN III ACTIVITY (CHRISTAAKER) 91.0 % 80.0-120.0 (test code = 711) 2D Echo W/Doppler(CW/PW/Color)2020-01-06 10:40:51Ejection FractionSLEH ECHO HEARTLAB MKCKESSON CPACSInterface, External Ris In - 01/06/2020 10:41 AM C DTTransthoracic Echocardiography Report (TTE) Demographics Patient Name VANNESSA HOLT Date of Study 01/06/2020 CONALTY Gender Female Visit Number [id number] Race Unknown Room Number 926 Number Date of 1965 Referring Physician BOLIVAR Cardoza Age 54 year(s) [employer] Honorio Lockwood RDCS Interpreting Kenneth Marks MD Physician Procedure Type of Study TTE procedure:2DECHO W DOPPLER(CW/PW/COLOR) (Routine) Indications:Stroke work up.Clinical HistoryCVA, HTN, AphasiaHGB 13.3HCT 39.9 %Contrast Medium: Definity.Height: 64 inches Weight: 73.48 kg (162 lbs) BSA: 1.79 m^2 BMI: 27.81 kg/m^2HR:69 bpm BP: 114/57 mmHg Summary 1. The left ventricle is chamber size (by vol index) is normal. No evidence of LV hypertrophy. All of the LV segments contract normally . Global LV systolic function normal . LVEF by Mendez's method of disk assessment is normal (60%). Grade 1 diastolic dysfunction (impaired relaxation and low-normal LA pressure). LA size is normal (16-34 ml/m2) . 2. The right ventricular chamber size and systolic function are within normal limits. RA size is normal. Unable to estimate peak systolic PA pressure; inadequate TR velocity signal. 3. No significant valvular abnormalites. 4. IV saline contrast injection was negative for a PFO (patent foramen ovale) at rest and post Valsalva . Previous Study No prior exam available for comparison. Signature Findings Left The left ventricle is chamber size (by vol index) is normal Ventricle (female - LVED vol - 29-61ml/m2). No evidence of LV hypertrophy. All of the LV segments contract normally . Global LV systolic function normal . LVEF by Mendez's method of disk assessment is normal (60%) . Grade 1 diastolic dysfunction (impaired relaxation and low-normal LA pressure). Left Atrium LA size is normal (16-34 ml/m2) . Right The right ventricular chamber size and systolic function are Ventricle within normal limits. Right Atrium RA size is normal. Atrial Normal interatrial septum by available views. Septum IV saline contrast injection was negative for a PFO (patent foramen ovale) at rest and post Valsalva . Aortic Valve Mild AoV cusp thickening. No evidence of aortic regurgitation. Mitral Valve Mild MV leaflet thickening. Trace mitral regurgitation. Tricuspid A trace of tricuspid regurgitation. Valve Unable to estimate peak systolic PA pressure; inadequate TR velocity signal. Pulmonic Normal PV structure appears normal by available views. Valve Aorta Aortic root size (SInus of Valsalva diameter) is normal . Pericardium No significant pericardial effusion is visualized. Chambers/Structures Left Atrium LA Volume: 31.5 ml LA Area: 13.38 cm^2 LA Vol. Index: 18 ml/m^2 Left Ventricle LVIDd: 3.95 cm LVEDV:68.03 ml LV Septum Diastolic: 0.56 cm LV PW Diastolic: 0.58 cm LVEDV Mendez's:68.51 ml LVESV Mendez's:23.45 ml LVEF Mendez's: 65.8 % LVEDVI: 38 ml/m^2 LVESVI: 13 ml/m^2 LVOT Diameter: 1.99 cm Right Ventricle RVOT VTI: 12.68 cm Doppler/Quantitative Measurements Mitral Valve MV Peak E-Wave: 0.56 m/s MV Peak A-Wave: 0.64 m/s E/A Ratio: 0.88 Peak Gradient: 1.26 mmHg Deceleration Time: 245 msec MV José Miguel. Peak: Tissue Doppler E' Lateral Velocity: 0.1 m/s E/E': 5.74 Aortic Valve Peak Velocity: 0.9 m/s Mean Velocity: 0.63 m/s Peak Gradient: 3.27 mmHg Mean Gradient: 1.77 mmHg AV Area (continuity): 3.17 cm^2 AV VTI: 18.69 cm AV DVI: 1.02 LVOT Peak Velocity: 0.92 m/s Peak Gradient: 3.42 mmHg Mean Velocity: 0.65 m/s Mean Gradient: 1.83 mmHg LVOT Diameter: 1.99 cm LVOT VTI: 19.05 cm LVOT Area: 3.11 cm^2 LVOT SV:59.22 ml LVOT CO: 4.09 l/min LVOT CI: 2.28 l[facility]min/m^2[facility]Do[facility]CW/PW/Color)2020-01-06 10:40:51Ejection FractionSLEH ECHO HEARTLAB MKCKESSON CPACSInterface, External Ris In - 01/06/2020 10:41 AM CDTTransthoracic Echocardiography Report (TTE) Demographics Patient Name VANNESSA HOLT Date of Study 01/06/2020 CONALTY Gender Female Visit Number [id number] Race Unknown Room Number 926 Number Date of 1965 Referring Physician BOLIVAR Cardoza Age 54 year(s) [employer] Honorio Lockwood [facility] Interpreting Kenneth Marks MD Physician Procedure Type of Study TTE procedure:2DECHO W DOPPLER(CW/PW /COLOR) (Routine) Indications:Stroke work up.Clinical HistoryCVA, HTN, AphasiaHGB 13.3HCT 39.9 %Contrast Medium: Definity.Height: 64 inches Weight: 73.48 kg (162 lbs) BSA: 1.79 m^2 BMI: 27.81 kg/m^2HR:69 bpm BP: 114/57 mmHg Summary 1. The left ventricle is chamber size (by vol index) is normal. No samm dence of LV hypertrophy. All of the LV segments contract normally . Global LV systolic function normal . LVEF by Mendez's method of disk assessment is normal (60%). Grade 1 diastolic dysfunction (impaired relaxation and low-normal LA pressure). LA size is normal (16-34 ml/m2) . 2. The right ventricular chamber size and systolic function are within normal limits. RA size is normal. Unable to estimate peak systolic PA pressure; inadequate TR velocity signal. 3. No significant valvular abnormalites. 4. IV saline contrast injection was negative for a PFO (patent foramen ovale) at rest and post Valsalva . Previous Study No prior exam available for comparison. Signature Findings Left The left ventricle is chamber size (by vol index) is normal Ventricle (female - LVED vol - 29-61ml/m2). No evidence of LV hypertrophy. All of the LV segments contract normally . Global LV systolic function normal . LVEF by Mendez's method of disk assessment is normal (60%) . Grade 1 diastolic dysfunction (impaired relaxation and low-normal LA pressure). Left Atrium LA size is normal (16-34 ml/m2) . Right The right ventricular chamber size and systolic function are Ventricle within normal limits. Right Atrium RA size is normal. Atrial Normal interatrial septum by available views. Septum IV saline contrast injection was negative for a PFO (patent foramen ovale) at rest and post Valsalva . Aortic Valve Mild AoV cusp thickening. No evidence of aortic regurgitation. Mitral Valve Mild MV leaflet thickening. Trace mitral regurgitation. Tricuspid A trace of tricuspid regurgitation. Valve Unable to estimate peak systolic PA pressure; inadequate TR velocity signal. Pulmonic Normal PV structure appears normal by available views. Valve Aorta Aortic root size (SInus of Valsalva diameter) is normal . Pericardium No significant pericardial effusion is visualized. Chambers/Structures Left Atrium LA Volume: 31.5 ml LA Area: 13.38 cm^2 LA Vol. Index: 18 ml/m^2 Left Ventricle LVIDd: 3.95 cm LVEDV:68.03 ml LV Septum Diastolic: 0.56 cm LV PW Diastolic: 0.58 cm LVEDV Mendez's:68.51 ml LVESV Mendez's:23.45 ml LVEF Mendez's: 65.8 % LVEDVI: 38 ml/m^2 LVESVI: 13 ml/m^2 LVOT Diameter: 1.99 cm Right Ventricle RVOT VTI: 12.68 cm Doppler/Quantitative Measurements Mitral Valve MV Peak E-Wave: 0.56 m/s MV Peak A-Wave: 0.64 m/s E/A Ratio: 0.88 Peak Gradient: 1.26 mmHg Deceleration Time: 245 msec MV José Miguel. Peak: Tissue Doppler E' Lateral Velocity: 0.1 m/s E/E': 5.74 Aortic Valve Peak Velocity: 0.9 m/s Mean Velocity: 0.63 m/s Peak Gradient: 3.27 mmHg Mean Gradient: 1.77 mmHg AV Area (continuity): 3.17 cm^2 AV VTI: 18.69 cm AV DVI: 1.02 LVOT Peak Velocity: 0.92 m/s Peak Gradient: 3.42 mmHg Mean Velocity: 0.65 m/s Mean Gradient: 1.83 mmHg LVOT Diameter: 1.99 cm LVOT VTI: 19.05 cm LVOT Area: 3.11 cm^2 LVOT SV:59.22 ml LVOT CO: 4.09 l/min LVOT CI: 2.28 l/min/m^2[facility]Doppler(CW/PW/Color)2020-01-06 10:40:51Ejection FractionSLEH ECHO HEARTLAB MKCKESSON CPACSInterface, External Ris In - 01/06/2020 10:41 AM CDTTransthoracic Echocardiography Report (TTE) Demographics Patient Name YANET, VANNESSA Date of Study 01/06/2020 EDWIGE Gender Female Visit Number [id number] Race Unknown Room Number 926 Number Date of 1965 Referring Physician BOLIVAR Cardoza Age 54 year(s) [employer] Honorio Lockwood [facility] Interpreting Kenneth Marks MD Physician Procedure Type of Study TTE procedure:2DECHO W DOPPLER(CW/PW /COLOR) (Routine) Indications:Stroke work up.Clinical HistoryCVA, HTN, AphasiaHGB 13.3HCT 39.9 %Contrast Medium: Definity.Height: 64 inches Weight: 73.48 kg (162 lbs) BSA: 1.79 m^2 BMI: 27.81 kg/m^2HR:69 bpm BP: 114/57 mmHg Summary 1. The left ventricle is chamber size (by vol index) is normal. No samm dence of LV hypertrophy. All of the LV segments contract normally . Global LV systolic function normal . LVEF by Mendez's method of disk assessment is normal (60%). Grade 1 diastolic dysfunction (impaired relaxation and low-normal LA pressure). LA size is normal (16-34 ml/m2) . 2. The right ventricular chamber size and systolic function are within normal limits. RA size is normal. Unable to estimate peak systolic PA pressure; inadequate TR velocity signal. 3. No significant valvular abnormalites. 4. IV saline contrast injection was negative for a PFO (patent foramen ovale) at rest and post Valsalva . Previous Study No prior exam available for comparison. Signature Findings Left The left ventricle is chamber size (by vol index) is normal Ventricle (female - LVED vol - 29-61ml/m2). No evidence of LV hypertrophy. All of the LV segments contract normally . Global LV systolic function normal . LVEF by Mendez's method of disk assessment is normal (60%) . Grade 1 diastolic dysfunction (impaired relaxation and low-normal LA pressure). Left Atrium LA size is normal (16-34 ml/m2) . Right The right ventricular chamber size and systolic function are Ventricle within normal limits. Right Atrium RA size is normal. Atrial Normal interatrial septum by available views. Septum IV saline contrast injection was negative for a PFO (patent foramen ovale) at rest and post Valsalva . Aortic Valve Mild AoV cusp thickening. No evidence of aortic regurgitation. Mitral Valve Mild MV leaflet thickening. Trace mitral regurgitation. Tricuspid A trace of tricuspid regurgitation. Valve Unable to estimate peak systolic PA pressure; inadequate TR velocity signal. Pulmonic Normal PV structure appears normal by available views. Valve Aorta Aortic root size (SInus of Valsalva diameter) is normal . Pericardium No significant pericardial effusion is visualized. Chambers/Structures Left Atrium LA Volume: 31.5 ml LA Area: 13.38 cm^2 LA Vol. Index: 18 ml/m^2 Left Ventricle LVIDd: 3.95 cm LVEDV:68.03 ml LV Septum Diastolic: 0.56 cm LV PW Diastolic: 0.58 cm LVEDV Mendez's:68.51 ml LVESV Mendez's:23.45 ml LVEF Mendez's: 65.8 % LVEDVI: 38 ml/m^2 LVESVI: 13 ml/m^2 LVOT Diameter: 1.99 cm Right Ventricle RVOT VTI: 12.68 cm Doppler/Quantitative Measurements Mitral Valve MV Peak E-Wave: 0.56 m/s MV Peak A-Wave: 0.64 m/s E/A Ratio: 0.88 Peak Gradient: 1.26 mmHg Deceleration Time: 245 msec MV José Miguel. Peak: Tissue Doppler E' Lateral Velocity: 0.1 m/s E/E': 5.74 Aortic Valve Peak Velocity: 0.9 m/s Mean Velocity: 0.63 m/s Peak Gradient: 3.27 mmHg Mean Gradient: 1.77 mmHg AV Area (continuity): 3.17 cm^2 AV VTI: 18.69 cm AV DVI: 1.02 LVOT Peak Velocity: 0.92 m/s Peak Gradient: 3.42 mmHg Mean Velocity: 0.65 m/s Mean Gradient: 1.83 mmHg LVOT Diameter: 1.99 cm LVOT VTI: 19.05 cm LVOT Area: 3.11 cm^2 LVOT SV:59.22 ml LVOT CO: 4.09 l/min LVOT CI: 2.28 l/min/m^2[facility]/Doppler(CW/PW/Color)2020-01-06 10:40:51Ejection FractionSLEH ECHO HEARTLAB MKCKESSON CPACSInterface, External Ris In - 01/06/2020 10:41 AM CDTTransthoracic Echocardiography Report (TTE) Demographics Patient Name VANNESSA HOLT Date of Study 01/06/2020 CONALTY Gender Female Visit Number [id number] Race Unknown Room Number 926 Number Date of 1965 Referring Physician BOLIVAR Cardoza Age 54 year(s) [employer] Honorio Lockwood RDCS Interpreting Kenneth Marks MD Physician Procedure Type of Study TTE procedure:2DECHO W DOPPLER(CW/PW /COLOR) (Routine) Indications:Stroke work up.Clinical HistoryCVA, HTN, AphasiaHGB 13.3HCT 39.9 %Contrast Medium: Definity.Height: 64 inches Weight: 73.48 kg (162 lbs) BSA: 1.79 m^2 BMI: 27.81 kg/m^2HR:69 bpm BP: 114/57 mmHg Summary 1. The left ventricle is chamber size (by vol index) is normal. No samm dence of LV hypertrophy. All of the LV segments contract normally . Global LV systolic function normal . LVEF by Mendez's method of disk assessment is normal (60%). Grade 1 diastolic dysfunction (impaired relaxation and low-normal LA pressure). LA size is normal (16-34 ml/m2) . 2. The right ventricular chamber size and systolic function are within normal limits. RA size is normal. Unable to estimate peak systolic PA pressure; inadequate TR velocity signal. 3. No significant valvular abnormalites. 4. IV saline contrast injection was negative for a PFO (patent foramen ovale) at rest and post Valsalva . Previous Study No prior exam available for comparison. Signature Findings Left The left ventricle is chamber size (by vol index) is normal Ventricle (female - LVED vol - 29-61ml/m2). No evidence of LV hypertrophy. All of the LV segments contract normally . Global LV systolic function normal . LVEF by Mendez's method of disk assessment is normal (60%) . Grade 1 diastolic dysfunction (impaired relaxation and low-normal LA pressure). Left Atrium LA size is normal (16-34 ml/m2) . Right The right ventricular chamber size and systolic function are Ventricle within normal limits. Right Atrium RA size is normal. Atrial Normal interatrial septum by available views. Septum IV saline contrast injection was negative for a PFO (patent foramen ovale) at rest and post Valsalva . Aortic Valve Mild AoV cusp thickening. No evidence of aortic regurgitation. Mitral Valve Mild MV leaflet thickening. Trace mitral regurgitation. Tricuspid A trace of tricuspid regurgitation. Valve Unable to estimate peak systolic PA pressure; inadequate TR velocity signal. Pulmonic Normal PV structure appears normal by available views. Valve Aorta Aortic root size (SInus of Valsalva diameter) is normal . Pericardium No significant pericardial effusion is visualized. Chambers/Structures Left Atrium LA Volume: 31.5 ml LA Area: 13.38 cm^2 LA Vol. Index: 18 ml/m^2 Left Ventricle LVIDd: 3.95 cm LVEDV:68.03 ml LV Septum Diastolic: 0.56 cm LV PW Diastolic: 0.58 cm LVEDV Mendez's:68.51 ml LVESV Mendez's:23.45 ml LVEF Mendez's: 65.8 % LVEDVI: 38 ml/m^2 LVESVI: 13 ml/m^2 LVOT Diameter: 1.99 cm Right Ventricle RVOT VTI: 12.68 cm Doppler/Quantitative Measurements Mitral Valve MV Peak E-Wave: 0.56 m/s MV Peak A-Wave: 0.64 m/s E/A Ratio: 0.88 Peak Gradient: 1.26 mmHg Deceleration Time: 245 msec MV José Miguel. Peak: Tissue Doppler E' Lateral Velocity: 0.1 m/s E/E': 5.74 Aortic Valve Peak Velocity: 0.9 m/s Mean Velocity: 0.63 m/s Peak Gradient: 3.27 mmHg Mean Gradient: 1.77 mmHg AV Area (continuity): 3.17 cm^2 AV VTI: 18.69 cm AV DVI: 1.02 LVOT Peak Velocity: 0.92 m/s Peak Gradient: 3.42 mmHg Mean Velocity: 0.65 m/s Mean Gradient: 1.83 mmHg LVOT Diameter: 1.99 cm LVOT VTI: 19.05 cm LVOT Area: 3.11 cm^2 LVOT SV:59.22 ml LVOT CO: 4.09 l/min LVOT CI: 2.28 l/min/m^2[facility]/Doppler(CW/PW/Color)2020-01-06 10:40:51Ejection FractionSLEH ECHO HEARTLAB MKCKESSON CPACSInterface, External Ris In - 01/06/2020 10:41 AM CDTTransthoracic Echocardiography Report (TTE) Demographics Patient Name VANNESSA HOLT Date of Study 01/06/2020 CONALTY Gender Female Visit Number [id number] Race Unknown Room Number 926 Number Date of 1965 Referring Physician BOLIVAR Cardoza Age 54 year(s) [employer] Honorio Lockwood [facility] Interpreting Kenneth Marks MD Physician Procedure Type of Study TTE procedure:2DECHO W DOPPLER(CW/PW /COLOR) (Routine) Indications:Stroke work up.Clinical HistoryCVA, HTN, AphasiaHGB 13.3HCT 39.9 %Contrast Medium: Definity.Height: 64 inches Weight: 73.48 kg (162 lbs) BSA: 1.79 m^2 BMI: 27.81 kg/m^2HR:69 bpm BP: 114/57 mmHg Summary 1. The left ventricle is chamber size (by vol index) is normal. No samm dence of LV hypertrophy. All of the LV segments contract normally . Global LV systolic function normal . LVEF by Mendez's method of disk assessment is normal (60%). Grade 1 diastolic dysfunction (impaired relaxation and low-normal LA pressure). LA size is normal (16-34 ml/m2) . 2. The right ventricular chamber size and systolic function are within normal limits. RA size is normal. Unable to estimate peak systolic PA pressure; inadequate TR velocity signal. 3. No significant valvular abnormalites. 4. IV saline contrast injection was negative for a PFO (patent foramen ovale) at rest and post Valsalva . Previous Study No prior exam available for comparison. Signature Findings Left The left ventricle is chamber size (by vol index) is normal Ventricle (female - LVED vol - 29-61ml/m2). No evidence of LV hypertrophy. All of the LV segments contract normally . Global LV systolic function normal . LVEF by Mendez's method of disk assessment is normal (60%) . Grade 1 diastolic dysfunction (impaired relaxation and low-normal LA pressure). Left Atrium LA size is normal (16-34 ml/m2) . Right The right ventricular chamber size and systolic function are Ventricle within normal limits. Right Atrium RA size is normal. Atrial Normal interatrial septum by available views. Septum IV saline contrast injection was negative for a PFO (patent foramen ovale) at rest and post Valsalva . Aortic Valve Mild AoV cusp thickening. No evidence of aortic regurgitation. Mitral Valve Mild MV leaflet thickening. Trace mitral regurgitation. Tricuspid A trace of tricuspid regurgitation. Valve Unable to estimate peak systolic PA pressure; inadequate TR velocity signal. Pulmonic Normal PV structure appears normal by available views. Valve Aorta Aortic root size (SInus of Valsalva diameter) is normal . Pericardium No significant pericardial effusion is visualized. Chambers/Structures Left Atrium LA Volume: 31.5 ml LA Area: 13.38 cm^2 LA Vol. Index: 18 ml/m^2 Left Ventricle LVIDd: 3.95 cm LVEDV:68.03 ml LV Septum Diastolic: 0.56 cm LV PW Diastolic: 0.58 cm LVEDV Mendez's:68.51 ml LVESV Mendez's:23.45 ml LVEF Mendez's: 65.8 % LVEDVI: 38 ml/m^2 LVESVI: 13 ml/m^2 LVOT Diameter: 1.99 cm Right Ventricle RVOT VTI: 12.68 cm Doppler/Quantitative Measurements Mitral Valve MV Peak E-Wave: 0.56 m/s MV Peak A-Wave: 0.64 m/s E/A Ratio: 0.88 Peak Gradient: 1.26 mmHg Deceleration Time: 245 msec MV José Miguel. Peak: Tissue Doppler E' Lateral Velocity: 0.1 m/s E/E': 5.74 Aortic Valve Peak Velocity: 0.9 m/s Mean Velocity: 0.63 m/s Peak Gradient: 3.27 mmHg Mean Gradient: 1.77 mmHg AV Area (continuity): 3.17 cm^2 AV VTI: 18.69 cm AV DVI: 1.02 LVOT Peak Velocity: 0.92 m/s Peak Gradient: 3.42 mmHg Mean Velocity: 0.65 m/s Mean Gradient: 1.83 mmHg LVOT Diameter: 1.99 cm LVOT VTI: 19.05 cm LVOT Area: 3.11 cm^2 LVOT SV:59.22 ml LVOT CO: 4.09 l/min LVOT CI: 2.28 l/min/m^2CSequoia Hospital2D Echo W/Doppler(CW/PW/Color)2020-01-06 10:40:51Ejection FractionSLEH ECHO HEARTLAB MKCKESSON CPACSInterface, External Ris In - 01/06/2020 10:41 AM CDTTransthoracic Echocardiography Report (TTE) Demographics Patient Name VANNESSA HOLT Date of Study 01/06/2020 EDWIGE Gender Female Visit Number [id number] Race Unknown Room Number 926 Number Date of 1965 Referring Physician BOLIVAR Cardoza Age 54 year(s) [employer] Honorio Lockwood [facility] Interpreting Kenneth Marks MD Physician Procedure Type of Study TTE procedure:2DECHO W DOPPLER(CW/PW /COLOR) (Routine) Indications:Stroke work up.Clinical HistoryCVA, HTN, AphasiaHGB 13.3HCT 39.9 %Contrast Medium: Definity.Height: 64 inches Weight: 73.48 kg (162 lbs) BSA: 1.79 m^2 BMI: 27.81 kg/m^2HR:69 bpm BP: 114/57 mmHg Summary 1. The left ventricle is chamber size (by vol index) is normal. No samm dence of LV hypertrophy. All of the LV segments contract normally . Global LV systolic function normal . LVEF by Mendez's method of disk assessment is normal (60%). Grade 1 diastolic dysfunction (impaired relaxation and low-normal LA pressure). LA size is normal (16-34 ml/m2) . 2. The right ventricular chamber size and systolic function are within normal limits. RA size is normal. Unable to estimate peak systolic PA pressure; inadequate TR velocity signal. 3. No significant valvular abnormalites. 4. IV saline contrast injection was negative for a PFO (patent foramen ovale) at rest and post Valsalva . Previous Study No prior exam available for comparison. Signature Findings Left The left ventricle is chamber size (by vol index) is normal Ventricle (female - LVED vol - 29-61ml/m2). No evidence of LV hypertrophy. All of the LV segments contract normally . Global LV systolic function normal . LVEF by Mendez's method of disk assessment is normal (60%) . Grade 1 diastolic dysfunction (impaired relaxation and low-normal LA pressure). Left Atrium LA size is normal (16-34 ml/m2) . Right The right ventricular chamber size and systolic function are Ventricle within normal limits. Right Atrium RA size is normal. Atrial Normal interatrial septum by available views. Septum IV saline contrast injection was negative for a PFO (patent foramen ovale) at rest and post Valsalva . Aortic Valve Mild AoV cusp thickening. No evidence of aortic regurgitation. Mitral Valve Mild MV leaflet thickening. Trace mitral regurgitation. Tricuspid A trace of tricuspid regurgitation. Valve Unable to estimate peak systolic PA pressure; inadequate TR velocity signal. Pulmonic Normal PV structure appears normal by available views. Valve Aorta Aortic root size (SInus of Valsalva diameter) is normal . Pericardium No significant pericardial effusion is visualized. Chambers/Structures Left Atrium LA Volume: 31.5 ml LA Area: 13.38 cm^2 LA Vol. Index: 18 ml/m^2 Left Ventricle LVIDd: 3.95 cm LVEDV:68.03 ml LV Septum Diastolic: 0.56 cm LV PW Diastolic: 0.58 cm LVEDV Mendez's:68.51 ml LVESV Mendez's:23.45 ml LVEF Mendez's: 65.8 % LVEDVI: 38 ml/m^2 LVESVI: 13 ml/m^2 LVOT Diameter: 1.99 cm Right Ventricle RVOT VTI: 12.68 cm Doppler/Quantitative Measurements Mitral Valve MV Peak E-Wave: 0.56 m/s MV Peak A-Wave: 0.64 m/s E/A Ratio: 0.88 Peak Gradient: 1.26 mmHg Deceleration Time: 245 msec MV José Miguel. Peak: Tissue Doppler E' Lateral Velocity: 0.1 m/s E/E': 5.74 Aortic Valve Peak Velocity: 0.9 m/s Mean Velocity: 0.63 m/s Peak Gradient: 3.27 mmHg Mean Gradient: 1.77 mmHg AV Area (continuity): 3.17 cm^2 AV VTI: 18.69 cm AV DVI: 1.02 LVOT Peak Velocity: 0.92 m/s Peak Gradient: 3.42 mmHg Mean Velocity: 0.65 m/s Mean Gradient: 1.83 mmHg LVOT Diameter: 1.99 cm LVOT VTI: 19.05 cm LVOT Area: 3.11 cm^2 LVOT SV:59.22 ml LVOT CO: 4.09 l/min LVOT CI: 2.28 l/min/m^2CSequoia HospitalHemoglobin [id number] 10:15:00 Test Item Value Reference Range Interpretation Comments Hemoglobin A1C (test code = 4548-4) 5.3 % 4.3-6.1 Lab Interpretation (test code = Normal 13655-8) [facility] [id number] 10:15:00 Test Item Value Reference Range Interpretation Comments Hemoglobin A1C (test code = 4548-4) 5.3 % 4.3-6.1 Lab Interpretation (test code = Normal 68450-3) [facility] [id number] 10:15:00 Test Item Value Reference Range Interpretation Comments Hemoglobin A1C (test code = 4548-4) 5.3 % 4.3-6.1 Lab Interpretation (test code = Normal 39510-3) [facility] [id number] 10:15:00 Test Item Value Reference Range Interpretation Comments Hemoglobin A1C (test code = 4548-4) 5.3 % 4.3-6.1 Lab Interpretation (test code = Normal 08830-8) [facility] [id number] 10:15:00 Test Item Value Reference Range Interpretation Comments Hemoglobin A1C (test code = 4548-4) 5.3 % 4.3-6.1 Lab Interpretation (test code = Normal 93732-6) [facility] [id number] 10:15:00 Test Item Value Reference Range Interpretation Comments Hemoglobin A1C (test code = 4548-4) 5.3 % 4.3-6.1 Lab Interpretation (test code = Normal 66253-9) [facility] [id number] 10:15:00 Test Item Value Reference Range Interpretation Comments HEMOGLOBIN A1C (BEAKER) (test code = 5.3 % 4.3-6.1 368) Vitamin B12 and [id number] 22:45:00 Test Item Value Reference Range Interpretation Comments Vitamin B12 (test 633 pg/mL 213-816 code = 2132-9) Folate (test code = 32.50 ng/mL See_Comment [Automa gill 2284-8) message] The system which generated this result transmit gill reference range : >=7.00. The reference range was not used to interpret this result as normal/abnormal . AYESHA (test code = AYESHA) [employer] Message Broker Developer ID - FSE Lab Interpretation Normal (test code = 81185-5) [facility] and [id number] 22:45:00 Test Item Value Reference Range Interpretation Comments Vitamin B12 (test 633 pg/mL 213-816 code = 2132-9) Folate (test code = 32.50 ng/mL See_Comment [Automa gill 2284-8) message] The system which generated this result transmit gill reference range : >=7.00. The reference range was not used to interpret this result as normal/abnormal . AYESHA (test code = AYESHA) [employer] Message Broker Developer ID - FSE Lab Interpretation Normal (test code = 51823-3) [facility] [id number] 22:45:00 Test Item Value Reference Range Interpretation Comments Vitamin B12 (test 633 pg/mL 213-816 code = 2132-9) Folate (test code = 32.50 ng/mL See_Comment [Automa gill 2284-8) message] The system which generated this result transmit gill reference range : >=7.00. The reference range was not used to interpret this result as normal/abnormal . AYESHA (test code = AYESHA) [employer] Message Broker Developer ID - FSE Lab Interpretation Normal (test code = 23678-1) [facility] and [id number] 22:45:00 Test Item Value Reference Range Interpretation Comments Vitamin B12 (test 633 pg/mL 213-816 code = 2132-9) Folate (test code = 32.50 ng/mL See_Comment [Automa gill 2284-8) message] The system which generated this result transmit gill reference range : >=7.00. The reference range was not used to interpret this result as normal/abnormal . AYESHA (test code = AYESHA) [employer] Message Broker Developer ID - FSE Lab Interpretation Normal (test code = 16898-1) [facility] and [id number] 22:45:00 Test Item Value Reference Range Interpretation Comments Vitamin B12 (test 633 pg/mL 213-816 code = 2132-9) Folate (test code = 32.50 ng/mL See_Comment [Automa gill 2284-8) message] The system which generated this result transmit gill reference range : >=7.00. The reference range was not used to interpret this result as normal/abnormal . AYESHA (test code = AYESHA) [employer] Message Broker Developer ID - FSE Lab Interpretation Normal (test code = 44725-8) [facility] and [id number] 22:45:00 Test Item Value Reference Range Interpretation Comments Vitamin B12 (test 633 pg/mL 213-816 code = 2132-9) Folate (test code = 32.50 ng/mL See_Comment [Automa gill 2284-8) message] The system which generated this result transmit gill reference range : >=7.00. The reference range was not used to interpret this result as normal/abnormal . AYESHA (test code = AYESHA) [employer]sphere Message Broker Developer ID - FSE Lab Interpretation Normal (test code = 74431-2) [facility]IT[facility] B12 AND [id number] 22:45:00 Test Item Value Reference Range Interpretation Comments VITAMIN B12 (BEAKER) (test code = 633 pg/mL 213-816 774) FOLATE (BEAKER) (test code = 362) 32.50 ng/mL >=7.00 [employer] Message Broker Developer ID - FSECT, CAROTID, [id number] 21:05:00Unlisted Reason for Exam - Click Yes and Enter Reason Below->NoFINAL REPORT CLINICAL HISTORY: Neuro deficit, acute, stroke suspected TECHNIQUE: Initially, noncontrast head CT images were performed. Contiguous contrast-enhanced axial images through the neck followed by axial images through the head with coronal and sagittal reformations to assess the arterial circulation. 3-D reconstructions were performed using a volume rendered technique separately on a workstation. This exam was performed according to the departmental dose optimizationprogram which includes automated exposure control, adjustment of the mA and/or kV according to the patient size, and/or use of an iterative reconstruction technique. Stenosis evaluation reported in compliance with NASCET criteria. 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 Punctate calcifications in the left middle frontal gyrus. Ex vacuo dilatation of the left frontal horn. Generalized cerebral atrophy with ex vacuo dilatation of the ventricular system proportionate to sulci. There is no hydrocephalus or midline shift. The skull is intact. There is no evidence of intracranial aneurysm. No major branch vessel occlusion or high-grade focal stenosis. The major intradural venous sinuses are patent. CTA neck:Great vessel origins: No occlusionor high-grade stenosis. Carotid arteries: No occlusion or high-grade stenosis. Vertebral arteries: No occlusion or high-grade stenosis. No fracture or suspicious osseous lesion. Cervical soft tissues are unremarkable. Visualized lung apices are clear. IMPRESSION:No proximal branch arterial occlusion or high-grade focal stenosis within the head and neck. Signed: Leidy Enamorado Verified Date/Time: 01/05/2020 21:05:35 [facility] CT[facility]IO [id number] 21:05:00Unlisted Reason for Exam - Click Yes and Enter Reason Below->NoFINAL REPORT CLINICAL HISTORY: Neuro deficit, acute, stroke suspected TECHNIQUE: Initially, noncontrast head CT images were performed. Contiguous contrast-enhanced axial images through the neck followed by axial images through the head with coronal and sagittal reformations to assess the arterial circulation. 3-D reconstructions were performed using a volume rendered technique separately on a workstation. This exam was performed according to the departmental dose optimizationprogram which includes automated exposure control, adjustment of the mA and/or kV according to the patient size, and/or use of an iterative reconstruction technique. Stenosis evaluation reported in compliance with NASCET criteria. 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 Punctate calcifications in the left middle frontal gyrus. Ex vacuo dilatation of the left frontal horn. Generalized cerebral atrophy with ex vacuo dilatation of the ventricular system proportionate to sulci. There is no hydrocephalus or midline shift. The skull is intact. There is no evidence of intracranial aneurysm. No major branch vessel occlusion or high-grade focal stenosis. The major intradural venous sinuses are patent. CTA neck:Great vessel origins: No occlusionor high-grade stenosis. Carotid arteries: No occlusion or high-grade stenosis. Vertebral arteries: No occlusion or high-grade stenosis. No fracture or suspicious osseous lesion. Cervical soft tissues are unremarkable. Visualized lung apices are clear. IMPRESSION:No proximal branch arterial occlusion or high-grade focal stenosis within the head and neck. Signed: Leidy Enamorado Verified Date/Time: 01/05/2020 21:05:35 [facility] [id number] 21:05:00Interface, External Ris In - 01/05/2020 9:07 PM CDTFINAL REPORT CLINICAL HISTORY: Neuro deficit, acute, stroke suspected TECHNIQUE: Initially, noncontrast head CT images were performed. Contiguous contrast-enhanced axial images through the neck followed by axial images through the head with coronal and sagittal reformations to assess the arterial circulation. 3-D reconstructions were performed using a volume rendered technique separately on a workstation. This exam was performed according to the departmental dose optimization program which includes automated exposure control, adjustment of the mA and/or kV according to the patient size, and/or use of an iterative reconstruction technique. Stenosis evaluation reported in compliance with NASCET criteria. 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 Punctate calcifications in the left middle frontal gyrus. Ex vacuo dilatation of the left frontal horn. Generalized cerebral atrophy with ex vacuo dilatation of the ventricular system proportionate to sulci. There is no hydrocephalus or midline shift. The skull is intact. There is no evidence of intracranial aneurysm. Nomajor branch vessel occlusion or high-grade focal stenosis. The major intradural venous sinuses are patent. CTA neck:Great vessel origins: No occlusion or high-grade stenosis. Carotid arteries: No occlusion or high-grade stenosis. Vertebral arteries: No occlusion or high-grade stenosis. No fracture or suspicious osseous lesion. Cervical soft tissues are unremarkable. Visualized lung apices are clear. IMPRESSION:No proximal branch arterial occlusion or high-grade focal stenosis within the head and neck. Signed: Leidy Enamorado Verified Date/Time: 01/05/2020 21:05:35 [facility] [id number] 21:05:00Interface, External Ris In - 01/05/2020 9:07 PM CDTFINAL REPORT CLINICAL HISTORY: Neuro deficit, acute, stroke suspected TECHNIQUE: Initially, noncontrast head CT images were performed. Contiguous contrast-enhanced axial images through the neck followed by axial images through the head with coronal and sagittal reformations to assess the arterial circulation. 3-D reconstructions were performed using a volume rendered technique separately on a workstation. This exam was performed according to the departmental dose optimization program which includes automated exposure control, adjustment of the mA and/or kV according to the patient size, and/or use of an iterative reconstruction technique. Stenosis evaluation reported in compliance with NASCET criteria. 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 Punctate calcifications in the left middle frontal gyrus. Ex vacuo dilatation of the left frontal horn. Generalized cerebral atrophy with ex vacuo dilatation of the ventricular system proportionate to sulci. There is no hydrocephalus or midline shift. The skull is intact. There is no evidence of intracranial aneurysm. Nomajor branch vessel occlusion or high-grade focal stenosis. The major intradural venous sinuses are patent. CTA neck:Great vessel origins: No occlusion or high-grade stenosis. Carotid arteries: No occlusion or high-grade stenosis. Vertebral arteries: No occlusion or high-grade stenosis. No fracture or suspicious osseous lesion. Cervical soft tissues are unremarkable. Visualized lung apices are clear. IMPRESSION:No proximal branch arterial occlusion or high-grade focal stenosis within the head and neck. Signed: Leidy Enamorado Verified Date/Time: 01/05/2020 21:05:35 [facility] [id number] 21:05:00Interface, External Ris In - 01/05/2020 9:07 PM CDTFINAL REPORT CLINICAL HISTORY: Neuro deficit, acute, stroke suspected TECHNIQUE: Initially, noncontrast head CT images were performed. Contiguous contrast-enhanced axial images through the neck followed by axial images through the head with coronal and sagittal reformations to assess the arterial circulation. 3-D reconstructions were performed using a volume rendered technique separately on a workstation. This exam was performed according to the departmental dose optimization program which includes automated exposure control, adjustment of the mA and/or kV according to the patient size, and/or use of an iterative reconstruction technique. Stenosis evaluation reported in compliance with NASCET criteria. 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 Punctate calcifications in the left middle frontal gyrus. Ex vacuo dilatation of the left frontal horn. Generalized cerebral atrophy with ex vacuo dilatation of the ventricular system proportionate to sulci. There is no hydrocephalus or midline shift. The skull is intact. There is no evidence of intracranial aneurysm. Nomajor branch vessel occlusion or high-grade focal stenosis. The major intradural venous sinuses are patent. CTA neck:Great vessel origins: No occlusion or high-grade stenosis. Carotid arteries: No occlusion or high-grade stenosis. Vertebral arteries: No occlusion or high-grade stenosis. No fracture or suspicious osseous lesion. Cervical soft tissues are unremarkable. Visualized lung apices are clear. IMPRESSION:No proximal branch arterial occlusion or high-grade focal stenosis within the head and neck. Signed: Leidy Enamorado Verified Date/Time: 01/05/2020 21:05:35 [facility] [id number] 21:05:00Interface, External Ris In - 01/05/2020 9:07 PM CDTFINAL REPORT CLINICAL HISTORY: Neuro deficit, acute, stroke suspected TECHNIQUE: Initially, noncontrast head CT images were performed. Contiguous contrast-enhanced axial images through the neck followed by axial images through the head with coronal and sagittal reformations to assess the arterial circulation. 3-D reconstructions were performed using a volume rendered technique separately on a workstation. This exam was performed according to the departmental dose optimization program which includes automated exposure control, adjustment of the mA and/or kV according to the patient size, and/or use of an iterative reconstruction technique. Stenosis evaluation reported in compliance with NASCET criteria. 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 Punctate calcifications in the left middle frontal gyrus. Ex vacuo dilatation of the left frontal horn. Generalized cerebral atrophy with ex vacuo dilatation of the ventricular system proportionate to sulci. There is no hydrocephalus or midline shift. The skull is intact. There is no evidence of intracranial aneurysm. Nomajor branch vessel occlusion or high-grade focal stenosis. The major intradural venous sinuses are patent. CTA neck:Great vessel origins: No occlusion or high-grade stenosis. Carotid arteries: No occlusion or high-grade stenosis. Vertebral arteries: No occlusion or high-grade stenosis. No fracture or suspicious osseous lesion. Cervical soft tissues are unremarkable. Visualized lung apices are clear. IMPRESSION:No proximal branch arterial occlusion or high-grade focal stenosis within the head and neck. Signed: Leidy Enamorado Verified Date/Time: 01/05/2020 21:05:35 [facility] [id number] 21:05:00Interface, External Ris In - 01/05/2020 9:07 PM CDTFINAL REPORT CLINICAL HISTORY: Neuro deficit, acute, stroke suspected TECHNIQUE: Initially, noncontrast head CT images were performed. Contiguous contrast-enhanced axial images through the neck followed by axial images through the head with coronal and sagittal reformations to assess the arterial circulation. 3-D reconstructions were performed using a volume rendered technique separately on a workstation. This exam was performed according to the departmental dose optimization program which includes automated exposure control, adjustment of the mA and/or kV according to the patient size, and/or use of an iterative reconstruction technique. Stenosis evaluation reported in compliance with NASCET criteria. 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 Punctate calcifications in the left middle frontal gyrus. Ex vacuo dilatation of the left frontal horn. Generalized cerebral atrophy with ex vacuo dilatation of the ventricular system proportionate to sulci. There is no hydrocephalus or midline shift. The skull is intact. There is no evidence of intracranial aneurysm. Nomajor branch vessel occlusion or high-grade focal stenosis. The major intradural venous sinuses are patent. CTA neck:Great vessel origins: No occlusion or high-grade stenosis. Carotid arteries: No occlusion or high-grade stenosis. Vertebral arteries: No occlusion or high-grade stenosis. No fracture or suspicious osseous lesion. Cervical soft tissues are unremarkable. Visualized lung apices are clear. IMPRESSION:No proximal branch arterial occlusion or high-grade focal stenosis within the head and neck. Signed: Leidy Enamorado MDReport Verified Date/Time: 01/05/2020 21:05:35 [facility] [id number] 21:05:00Interface, External Ris In - 01/05/2020 9:07 PM CDTFINAL REPORT CLINICAL HISTORY: Neuro deficit, acute, stroke suspected TECHNIQUE: Initially, noncontrast head CT images were performed. Contiguous contrast-enhanced axial images through the neck followed by axial images through the head with coronal and sagittal reformations to assess the arterial circulation. 3-D reconstructions were performed using a volume rendered technique separately on a workstation. This exam was performed according to the departmental dose optimization program which includes automated exposure control, adjustment of the mA and/or kV according to the patient size, and/or use of an iterative reconstruction technique. Stenosis evaluation reported in compliance with NASCET criteria. 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 Punctate calcifications in the left middle frontal gyrus. Ex vacuo dilatation of the left frontal horn. Generalized cerebral atrophy with ex vacuo dilatation of the ventricular system proportionate to sulci. There is no hydrocephalus or midline shift. The skull is intact. There is no evidence of intracranial aneurysm. Nomajor branch vessel occlusion or high-grade focal stenosis. The major intradural venous sinuses are patent. CTA neck:Great vessel origins: No occlusion or high-grade stenosis. Carotid arteries: No occlusion or high-grade stenosis. Vertebral arteries: No occlusion or high-grade stenosis. No fracture or suspicious osseous lesion. Cervical soft tissues are unremarkable. Visualized lung apices are clear. IMPRESSION:No proximal branch arterial occlusion or high-grade focal stenosis within the head and neck. Signed: Leidy Enamorado MDReport Verified Date/Time: 01/05/2020 21:05:35 [facility] [id number] 21:05:00Interface, External Ris In - 01/05/2020 9:07 PM CDTFINAL REPORT CLINICAL HISTORY: Neuro deficit, acute, stroke suspected TECHNIQUE: Initially, noncontrast head CT images were performed. Contiguous contrast-enhanced axial images through the neck followed by axial images through the head with coronal and sagittal reformations to assess the arterial circulation. 3-D reconstructions were performed using a volume rendered technique separately on a workstation. This exam was performed according to the departmental dose optimization program which includes automated exposure control, adjustment of the mA and/or kV according to the patient size, and/or use of an iterative reconstruction technique. Stenosis evaluation reported in compliance with NASCET criteria. 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 Punctate calcifications in the left middle frontal gyrus. Ex vacuo dilatation of the left frontal horn. Generalized cerebral atrophy with ex vacuo dilatation of the ventricular system proportionate to sulci. There is no hydrocephalus or midline shift. The skull is intact. There is no evidence of intracranial aneurysm. Nomajor branch vessel occlusion or high-grade focal stenosis. The major intradural venous sinuses are patent. CTA neck:Great vessel origins: No occlusion or high-grade stenosis. Carotid arteries: No occlusion or high-grade stenosis. Vertebral arteries: No occlusion or high-grade stenosis. No fracture or suspicious osseous lesion. Cervical soft tissues are unremarkable. Visualized lung apices are clear. IMPRESSION:No proximal branch arterial occlusion or high-grade focal stenosis within the head and neck. Signed: Leidy Enamorado MDReport Verified Date/Time: 01/05/2020 21:05:35 [facility] [id number] 21:05:00Interface, External Ris In - 01/05/2020 9:07 PM CDTFINAL REPORT CLINICAL HISTORY: Neuro deficit, acute, stroke suspected TECHNIQUE: Initially, noncontrast head CT images were performed. Contiguous contrast-enhanced axial images through the neck followed by axial images through the head with coronal and sagittal reformations to assess the arterial circulation. 3-D reconstructions were performed using a volume rendered technique separately on a workstation. This exam was performed according to the departmental dose optimization program which includes automated exposure control, adjustment of the mA and/or kV according to the patient size, and/or use of an iterative reconstruction technique. Stenosis evaluation reported in compliance with NASCET criteria. 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 Punctate calcifications in the left middle frontal gyrus. Ex vacuo dilatation of the left frontal horn. Generalized cerebral atrophy with ex vacuo dilatation of the ventricular system proportionate to sulci. There is no hydrocephalus or midline shift. The skull is intact. There is no evidence of intracranial aneurysm. Nomajor branch vessel occlusion or high-grade focal stenosis. The major intradural venous sinuses are patent. CTA neck:Great vessel origins: No occlusion or high-grade stenosis. Carotid arteries: No occlusion or high-grade stenosis. Vertebral arteries: No occlusion or high-grade stenosis. No fracture or suspicious osseous lesion. Cervical soft tissues are unremarkable. Visualized lung apices are clear. IMPRESSION:No proximal branch arterial occlusion or high-grade focal stenosis within the head and neck. Signed: Leidy Enamorado Verified Date/Time: 01/05/2020 21:05:35 [facility] [id number] 21:05:00Interface, External Ris In - 01/05/2020 9:07 PM CDTFINAL REPORT CLINICAL HISTORY: Neuro deficit, acute, stroke suspected TECHNIQUE: Initially, noncontrast head CT images were performed. Contiguous contrast-enhanced axial images through the neck followed by axial images through the head with coronal and sagittal reformations to assess the arterial circulation. 3-D reconstructions were performed using a volume rendered technique separately on a workstation. This exam was performed according to the departmental dose optimization program which includes automated exposure control, adjustment of the mA and/or kV according to the patient size, and/or use of an iterative reconstruction technique. Stenosis evaluation reported in compliance with NASCET criteria. 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 Punctate calcifications in the left middle frontal gyrus. Ex vacuo dilatation of the left frontal horn. Generalized cerebral atrophy with ex vacuo dilatation of the ventricular system proportionate to sulci. There is no hydrocephalus or midline shift. The skull is intact. There is no evidence of intracranial aneurysm. Nomajor branch vessel occlusion or high-grade focal stenosis. The major intradural venous sinuses are patent. CTA neck:Great vessel origins: No occlusion or high-grade stenosis. Carotid arteries: No occlusion or high-grade stenosis. Vertebral arteries: No occlusion or high-grade stenosis. No fracture or suspicious osseous lesion. Cervical soft tissues are unremarkable. Visualized lung apices are clear. IMPRESSION:No proximal branch arterial occlusion or high-grade focal stenosis within the head and neck. Signed: Leidy Enamorado Verified Date/Time: 01/05/2020 21:05:35 [facility] [id number] 21:05:00Interface, External Ris In - 01/05/2020 9:07 PM CDTFINAL REPORT CLINICAL HISTORY: Neuro deficit, acute, stroke suspected TECHNIQUE: Initially, noncontrast head CT images were performed. Contiguous contrast-enhanced axial images through the neck followed by axial images through the head with coronal and sagittal reformations to assess the arterial circulation. 3-D reconstructions were performed using a volume rendered technique separately on a workstation. This exam was performed according to the departmental dose optimization program which includes automated exposure control, adjustment of the mA and/or kV according to the patient size, and/or use of an iterative reconstruction technique. Stenosis evaluation reported in compliance with NASCET criteria. 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 Punctate calcifications in the left middle frontal gyrus. Ex vacuo dilatation of the left frontal horn. Generalized cerebral atrophy with ex vacuo dilatation of the ventricular system proportionate to sulci. There is no hydrocephalus or midline shift. The skull is intact. There is no evidence of intracranial aneurysm. Nomajor branch vessel occlusion or high-grade focal stenosis. The major intradural venous sinuses are patent. CTA neck:Great vessel origins: No occlusion or high-grade stenosis. Carotid arteries: No occlusion or high-grade stenosis. Vertebral arteries: No occlusion or high-grade stenosis. No fracture or suspicious osseous lesion. Cervical soft tissues are unremarkable. Visualized lung apices are clear. IMPRESSION:No proximal branch arterial occlusion or high-grade focal stenosis within the head and neck. Signed: Leidy Enamorado MDReport Verified Date/Time: 01/05/2020 21:05:35 [facility] [id number] 21:05:00Interface, External Ris In - 01/05/2020 9:07 PM CDTFINAL REPORT CLINICAL HISTORY: Neuro deficit, acute, stroke suspected TECHNIQUE: Initially, noncontrast head CT images were performed. Contiguous contrast-enhanced axial images through the neck followed by axial images through the head with coronal and sagittal reformations to assess the arterial circulation. 3-D reconstructions were performed using a volume rendered technique separately on a workstation. This exam was performed according to the departmental dose optimization program which includes automated exposure control, adjustment of the mA and/or kV according to the patient size, and/or use of an iterative reconstruction technique. Stenosis evaluation reported in compliance with NASCET criteria. 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 Punctate calcifications in the left middle frontal gyrus. Ex vacuo dilatation of the left frontal horn. Generalized cerebral atrophy with ex vacuo dilatation of the ventricular system proportionate to sulci. There is no hydrocephalus or midline shift. The skull is intact. There is no evidence of intracranial aneurysm. Nomajor branch vessel occlusion or high-grade focal stenosis. The major intradural venous sinuses are patent. CTA neck:Great vessel origins: No occlusion or high-grade stenosis. Carotid arteries: No occlusion or high-grade stenosis. Vertebral arteries: No occlusion or high-grade stenosis. No fracture or suspicious osseous lesion. Cervical soft tissues are unremarkable. Visualized lung apices are clear. IMPRESSION:No proximal branch arterial occlusion or high-grade focal stenosis within the head and neck. Signed: Leidy Enamoradoeport Verified Date/Time: 01/05/2020 21:05:35 [facility] [id number] 21:05:00Interface, External Ris In - 01/05/2020 9:07 PM CDTFINAL REPORT CLINICAL HISTORY: Neuro deficit, acute, stroke suspected TECHNIQUE: Initially, noncontrast head CT images were performed. Contiguous contrast-enhanced axial images through the neck followed by axial images through the head with coronal and sagittal reformations to assess the arterial circulation. 3-D reconstructions were performed using a volume rendered technique separately on a workstation. This exam was performed according to the departmental dose optimization program which includes automated exposure control, adjustment of the mA and/or kV according to the patient size, and/or use of an iterative reconstruction technique. Stenosis evaluation reported in compliance with NASCET criteria. 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 Punctate calcifications in the left middle frontal gyrus. Ex vacuo dilatation of the left frontal horn. Generalized cerebral atrophy with ex vacuo dilatation of the ventricular system proportionate to sulci. There is no hydrocephalus or midline shift. The skull is intact. There is no evidence of intracranial aneurysm. Nomajor branch vessel occlusion or high-grade focal stenosis. The major intradural venous sinuses are patent. CTA neck:Great vessel origins: No occlusion or high-grade stenosis. Carotid arteries: No occlusion or high-grade stenosis. Vertebral arteries: No occlusion or high-grade stenosis. No fracture or suspicious osseous lesion. Cervical soft tissues are unremarkable. Visualized lung apices are clear. IMPRESSION:No proximal branch arterial occlusion or high-grade focal stenosis within the head and neck. Signed: Leidy Enamorado Verified Date/Time: 01/05/2020 21:05:[address] [facility]/Free T4 If [id number] 19:10:00 Test Item Value Reference Range Interpretation Comments TSH (test code = 1.813 See_Comment [Automated 43628-4) message] The system which generated this result transmit gill reference range : 0.350 - 4.940 uIU/mL. The reference range was not used to interpret this result as normal/abnormal . AYESHA (test code = AYESHA) [employer] Message Broker Developer ID - BS Lab Interpretation Normal (test code = 20310-7) [facility]/Free T4 If [id number] 19:10:00 Test Item Value Reference Range Interpretation Comments TSH (test code = 1.813 See_Comment [Automated 71643-8) message] The system which generated this result transmit gill reference range : 0.350 - 4.940 uIU/mL. The reference range was not used to interpret this result as normal/abnormal . AYESHA (test code = AYESHA) [employer] Message Broker Developer ID - BS Lab Interpretation Normal (test code = 08474-1) [facility]/Free T4 If [id number] 19:10:00 Test Item Value Reference Range Interpretation Comments TSH (test code = 1.813 See_Comment [Automated 85426-2) message] The system which generated this result transmit gill reference range : 0.350 - 4.940 uIU/mL. The reference range was not used to interpret this result as normal/abnormal . AYESHA (test code = AYESHA) [employer] Message Broker Developer ID - BS Lab Interpretation Normal (test code = 67570-4) [facility]/Free T4 If [id number] 19:10:00 Test Item Value Reference Range Interpretation Comments TSH (test code = 1.813 See_Comment [Automated 30705-2) message] The system which generated this result transmit gill reference range : 0.350 - 4.940 uIU/mL. The reference range was not used to interpret this result as normal/abnormal . AYESHA (test code = AYESHA) [employer] Message Broker Developer ID - BS Lab Interpretation Normal (test code = 05752-6) [facility]/Free T4 If [id number] 19:10:00 Test Item Value Reference Range Interpretation Comments TSH (test code = 1.813 See_Comment [Automated 87046-2) message] The system which generated this result transmit gill reference range : 0.350 - 4.940 uIU/mL. The reference range was not used to interpret this result as normal/abnormal . AYESHA (test code = AYESHA) [employer] Message Broker Developer ID - BS Lab Interpretation Normal (test code = 37844-1) [facility] [id number] 19:10:00 Test Item Value Reference Range Interpretation Comments TSH (test code = 1.813 See_Comment [Automated 70614-5) message] The system which generated this result transmit gill reference range : 0.350 - 4.940 uIU/mL. The reference range was not used to interpret this result as normal/abnormal . AYESHA (test code = AYESHA) [employer] Message Broker Developer ID - BS Lab Interpretation Normal (test code = 22503-2) [facility] [id number] 19:10:00 Test Item Value Reference Range Interpretation Comments THYROID STIMULATING HORMONE 1.813 uIU/mL 0.350-4.940 (BEAKER) (test code = 772) [employer] Message Broker Developer ID - BSLipid [id number] 15:53:00 Test Item Value Reference Range Interpretation Comments Triglycerides (test 129 mg/dL Specimen code = 2571-8) slightly hemolyzed Cholesterol (test 201 mg/dL Specimen code = 2093-3) slightly hemolyzed HDL (test code = 52 mg/dL 5-9) LDL Calculated (test 123 mg/dL code = 75127-9) AYESHA (test code = Triglyceride AYESHA) Reference Range: Low Risk <150 Borderline 150-199 High Risk 200-499 Very High Risk >=500 Cholesterol Reference Range: Low Risk <200 Borderline 200-239 High Risk >240 HDL Cholesterol Reference Range: Low Risk >=60 High Risk <40 LDL Cholesterol Reference Range: Optimal <100 Near Optimal 100-129 Borderline 130-159 High 160-189 Very High >=190 [employer] Message Broker Developer ID - BS [facility] [id number] 15:53:00 Test Item Value Reference Range Interpretation Comments Protein, Total (test 7.4 See_Comment Specime n slightly code = 2885-2) hemolyzed [Automated message] The system which generated this result transmit gill reference range : 6.0 - 8.3 gm/dL . The reference range was not u sed to interpret th is result as normal/abnormal . Albumin (test code = 4.1 g/dL 3.5-5 Specime n slightly 55902-4) hemolyzed Total Bilirubin (test 1.0 mg/dL 0.2-1.2 Specim en slightly code = 1974-2) hemolyzed Bilirubin, Direct 0.4 mg/dL 0.1-0.5 Specimen s lightly (test code = 1968-7) hemolyz ed Alkaline Phosphatase 44 U/L 40-150 (test code = 6768-6) AST (test code = 31 U/L 5-34 Specimen sl ightly 1920-8) hemolyzed ALT (test code = 27 U/L 6-55 Specimen sl ightly 1742-6) hemolyzed AYESHA (test code = AYESHA) [employer] Message Broker Developer ID - BS Lab Interpretation Normal (test code = 33627-8) [facility] [id number] 15:53:00 Test Item Value Reference Range Interpretation Comments Triglycerides (test 129 mg/dL Specimen code = 2571-8) slightly hemolyzed Cholesterol (test 201 mg/dL Specimen code = 3-3) slightly hemolyzed HDL (test code = 52 mg/dL 2084-12) LDL Calculated (test 123 mg/dL code = 93038-0) AYESHA (test code = Triglyceride AYESHA) Reference Range: Low Risk <150 Borderline 150-199 High Risk 200-499 Very High Risk >=500 Cholesterol Reference Range: Low Risk <200 Borderline 200-239 High Risk >240 HDL Cholesterol Reference Range: Low Risk >=60 High Risk <40 LDL Cholesterol Reference Range: Optimal <100 Near Optimal 100-129 Borderline 130-159 High 160-189 Very High >=190 [employer] Message Broker Developer ID - BS [facility] [id number] 15:53:00 Test Item Value Reference Range Interpretation Comments Protein, Total (test 7.4 See_Comment Specime n slightly code = 2885-2) hemolyzed [Automated message] The system which generated this result transmit gill reference range : 6.0 - 8.3 gm/dL . The reference range was not u sed to interpret th is result as normal/abnormal . Albumin (test code = 4.1 g/dL 3.5-5 Specime n slightly 60250-3) hemolyzed Total Bilirubin (test 1.0 mg/dL 0.2-1.2 Specim en slightly code = 1974-2) hemolyzed Bilirubin, Direct 0.4 mg/dL 0.1-0.5 Specimen s lightly (test code = 1968-7) hemolyz ed Alkaline Phosphatase 44 U/L 40-150 (test code = 6768-6) AST (test code = 31 U/L 5-34 Specimen sl ightly 1920-8) hemolyzed ALT (test code = 27 U/L 6-55 Specimen sl ightly 1742-6) hemolyzed AYESHA (test code = AYESHA) [employer] Message Broker Developer ID - BS Lab Interpretation Normal (test code = 03092-2) [facility] [id number] 15:53:00 Test Item Value Reference Range Interpretation Comments Triglycerides (test 129 mg/dL Specimen code = 2571-8) slightly hemolyzed Cholesterol (test 201 mg/dL Specimen code = 3-3) slightly hemolyzed HDL (test code = 52 mg/dL 2084-12) LDL Calculated (test 123 mg/dL code = 56480-0) AYESHA (test code = Triglyceride AYESHA) Reference Range: Low Risk <150 Borderline 150-199 High Risk 200-499 Very High Risk >=500 Cholesterol Reference Range: Low Risk <200 Borderline 200-239 High Risk >240 HDL Cholesterol Reference Range: Low Risk >=60 High Risk <40 LDL Cholesterol Reference Range: Optimal <100 Near Optimal 100-129 Borderline 130-159 High 160-189 Very High >=190 [employer] Message Broker Developer ID - BS [facility] [id number] 15:53:00 Test Item Value Reference Range Interpretation Comments Protein, Total (test 7.4 See_Comment Specime n slightly code = 2885-2) hemolyzed [Automated message] The system which generated this result transmit gill reference range : 6.0 - 8.3 gm/dL . The reference range was not u sed to interpret th is result as normal/abnormal . Albumin (test code = 4.1 g/dL 3.5-5 Specime n slightly 02920-0) hemolyzed Total Bilirubin (test 1.0 mg/dL 0.2-1.2 Specim en slightly code = 1975-2) hemolyzed Bilirubin, Direct 0.4 mg/dL 0.1-0.5 Specimen s lightly (test code = 1968-7) hemolyz ed Alkaline Phosphatase 44 U/L 40-150 (test code = 6768-6) AST (test code = 31 U/L 5-34 Specimen sl ightly 1920-8) hemolyzed ALT (test code = 27 U/L 6-55 Specimen sl ightly 1742-6) hemolyzed AYESHA (test code = AYESHA) [employer] Message Broker Developer ID - BS Lab Interpretation Normal (test code = 91076-3) [facility] [id number] 15:53:00 Test Item Value Reference Range Interpretation Comments Triglycerides (test 129 mg/dL Specimen code = 2571-8) slightly hemolyzed Cholesterol (test 201 mg/dL Specimen code = 2092-3) slightly hemolyzed HDL (test code = 52 mg/dL 2084-12) LDL Calculated (test 123 mg/dL code = 17415-1) AYESHA (test code = Triglyceride AYESHA) Reference Range: Low Risk <150 Borderline 150-199 High Risk 200-499 Very High Risk >=500 Cholesterol Reference Range: Low Risk <200 Borderline 200-239 High Risk >240 HDL Cholesterol Reference Range: Low Risk >=60 High Risk <40 LDL Cholesterol Reference Range: Optimal <100 Near Optimal 100-129 Borderline 130-159 High 160-189 Very High >=190 [employer] Message Broker Developer ID - BS [facility] [id number] 15:53:00 Test Item Value Reference Range Interpretation Comments Protein, Total (test 7.4 See_Comment Specime n slightly code = 2885-2) hemolyzed [Automated message] The system which generated this result transmit gill reference range : 6.0 - 8.3 gm/dL . The reference range was not u sed to interpret th is result as normal/abnormal . Albumin (test code = 4.1 g/dL 3.5-5 Specime n slightly 83350-0) hemolyzed Total Bilirubin (test 1.0 mg/dL 0.2-1.2 Specim en slightly code = 1975-2) hemolyzed Bilirubin, Direct 0.4 mg/dL 0.1-0.5 Specimen s lightly (test code = 1968-7) hemolyz ed Alkaline Phosphatase 44 U/L 40-150 (test code = 6768-6) AST (test code = 31 U/L 5-34 Specimen sl ightly 1920-8) hemolyzed ALT (test code = 27 U/L 6-55 Specimen sl ightly 1742-6) hemolyzed AYESHA (test code = AYESHA) [employer] Message Broker Developer ID - BS Lab Interpretation Normal (test code = 44386-6) [id number] 15:53:00 Test Item Value Reference Range Interpretation Comments Triglycerides (test 129 mg/dL Specimen code = 2571-8) slightly hemolyzed Cholesterol (test 201 mg/dL Specimen code = 2093-3) slightly hemolyzed HDL (test code = 52 mg/dL 2084-9) LDL Calculated (test 123 mg/dL code = 08372-7) AYESHA (test code = Triglyceride AYESHA) Reference Range: Low Risk <150 Borderline 150-199 High Risk 200-499 Very High Risk >=500 Cholesterol Reference Range: Low Risk <200 Borderline 200-239 High Risk >240 HDL Cholesterol Reference Range: Low Risk >=60 High Risk <40 LDL Cholesterol Reference Range: Optimal <100 Near Optimal 100-129 Borderline 130-159 High 160-189 Very High >=190 [employer] Message Broker Developer ID - BS [facility] [id number] 15:53:00 Test Item Value Reference Range Interpretation Comments Protein, Total (test 7.4 See_Comment Specime n slightly code = 2885-2) hemolyzed [Automated message] The system which generated this result transmit gill reference range : 6.0 - 8.3 gm/dL . The reference range was not u sed to interpret th is result as normal/abnormal . Albumin (test code = 4.1 g/dL 3.5-5 Specime n slightly 55430-3) hemolyzed Total Bilirubin (test 1.0 mg/dL 0.2-1.2 Specim en slightly code = 1975-2) hemolyzed Bilirubin, Direct 0.4 mg/dL 0.1-0.5 Specimen s lightly (test code = 1968-7) hemolyz ed Alkaline Phosphatase 44 U/L 40-150 (test code = 6768-6) AST (test code = 31 U/L 5-34 Specimen sl ightly 1920-8) hemolyzed ALT (test code = 27 U/L 6-55 Specimen sl ightly 1742-6) hemolyzed AYESHA (test code = AYESHA) [employer] Message Broker Developer ID - BS Lab Interpretation Normal (test code = 96450-2) [facility] [id number] 15:53:00 Test Item Value Reference Range Interpretation Comments Triglycerides (test 129 mg/dL Specimen code = 2571-8) slightly hemolyzed Cholesterol (test 201 mg/dL Specimen code = 2093-3) slightly hemolyzed HDL (test code = 52 mg/dL 2084-9) LDL Calculated (test 123 mg/dL code = 08990-0) AYESHA (test code = Triglyceride AYESHA) Reference Range: Low Risk <150 Borderline 150-199 High Risk 200-499 Very High Risk >=500 Cholesterol Reference Range: Low Risk <200 Borderline 200-239 High Risk >240 HDL Cholesterol Reference Range: Low Risk >=60 High Risk <40 LDL Cholesterol Reference Range: Optimal <100 Near Optimal 100-129 Borderline 130-159 High 160-189 Very High >=190 [employer] Message Broker Developer ID - BS [facility] [id number] 15:53:00 Test Item Value Reference Range Interpretation Comments Protein, Total (test 7.4 See_Comment Specime n slightly code = 2885-2) hemolyzed [Automated message] The system which generated this result transmit gill reference range : 6.0 - 8.3 gm/dL . The reference range was not u sed to interpret th is result as normal/abnormal . Albumin (test code = 4.1 g/dL 3.5-5 Specime n slightly 34360-7) hemolyzed Total Bilirubin (test 1.0 mg/dL 0.2-1.2 Specim en slightly code = 1975-2) hemolyzed Bilirubin, Direct 0.4 mg/dL 0.1-0.5 Specimen s lightly (test code = 1968-7) hemolyz ed Alkaline Phosphatase 44 U/L 40-150 (test code = 6768-6) AST (test code = 31 U/L 5-34 Specimen sl ightly 1920-8) hemolyzed ALT (test code = 27 U/L 6-55 Specimen sl ightly 1742-6) hemolyzed AYESHA (test code = AYESHA) [employer] Message Broker Developer ID - BS Lab Interpretation Normal (test code = 82818-2) [facility] [id number] 15:53:00 Test Item Value Reference Range Interpretation Comments TRIGLYCERIDES (BEAKER) 129 mg/dL Speci men slightly (test code = 540) hemolyzed CHOLESTEROL (BEAKER) 201 mg/dL Specime n slightly (test code = 631) hemolyzed HDL CHOLESTEROL (BEAKER) 52 mg/dL (test code = 976) LDL CHOLESTEROL 123 mg/dL CALCULATED (BEAKER) (test code = 633) Triglyceride Reference Range: Low Risk <150 Borderline 150-199 High Risk 200-499 Very High Risk >=500Cholesterol Reference Range: Low Risk <200 Borderline 200-239 High Risk >240HDL Cholesterol Reference Range: Low Risk >=60 High Risk <40LDL Cholesterol Reference Range: Optimal <100 Near Optimal 100-129 Borderline 130-159 High 160-189 Very High >=190 [employer] Message Broker Developer ID - BSHEPATIC FUNCTION [id number] 15:53:00 Test Item Value Reference Range Interpretation Comments TOTAL PROTEIN (BEAKER) 7.4 gm/dL 6.0-8.3 Speci men slightly (test code = 770) hemolyzed ALBUMIN (BEAKER) (test 4.1 g/dL 3.5-5.0 Speci men slightly code = 1145) hemolyzed BILIRUBIN TOTAL 1.0 mg/dL 0.2-1.2 Specimen sli ghtly (BEAKER) (test code = hemoly zed 377) BILIRUBIN DIRECT 0.4 mg/dL 0.1-0.5 Specimen sl ightly (BEAKER) (test code = hemoly zed 706) ALKALINE PHOSPHATASE 44 U/L 40-150 (BEAKER) (test code = 346) AST (SGOT) (BEAKER) 31 U/L 5-34 Specimen slightly (test code = 353) hemolyzed ALT (SGPT) (BEAKER) 27 U/L 6-55 Specimen slightly (test code = 347) hemolyzed [employer] Message Broker Developer ID - BSEEG AWAKE AND [id number] 22:22:00Reason for exam:->seizureDATE OF TEST: 01/04/2020 DATE OF REPORT: 01/04/2020 ACC: [id number] EE-1115 Start time: 3:27 PM on 01/04/20 Stop time: 3:47 PM on 01/04/20 ICD-10: R56.9 CPT Code: 63205 HISTORY: 54 y/o RH F with 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 MEDICATIONS: clobazam, divalproex, gabapentin, metoprolol, methylphenidate. TECHNICAL SUMMARY: This is a digital video EEG recorded with 32 input channels reviewed with bipolar and referential montages using the modified combinatorial systemnomenclature. DESCRIPTION OF RECORD: The background consists of a mixture of alpha and theta frequencies with superimposed frontally predominant beta frequencies. The background is asymmetric with higher amplitudes and admixed faster frequencies over the left mhkilw-jcfjig-vqpbfkp-parietal area. Moderate voltage 3 - 5 Hz activity is present in that region. The EEG background is reactive. The occipital dominant rhythm is 9-10 Hz and well regulated. No sleep features were appreciated during the recording. PHOTIC STIMULATION: Flash stimulation was done from 1-33 Hz; no photic driving was seen; photoparoxysmal responses were absent. HV: Was not performed. EKG: NSR. IMPRESSION: This is an abnormal awake EEG due to higher amplitudes and faster frequencies over the left hemisphere in association with a focus of slow (theta) activity in that region. CLINICAL CORRELATION: The higher amplitudes and admixed faster frequencies over the left pqambl-mruetd-wrwzyvp-parietal area may represent a b reach rhythm due to the previous craniotomy and the focus of slow activity suggests the presence of an underlying structural pathology. There are no definite epileptiform discharges or electrographic seizures. Zen Townsend M.D. Epilepsy Fellow I have reviewed the electroencephalogram and thi s report and agree with its interpretation. Caprice Fisher M.D. 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 MEDICATIONS: clobazam, divalproex, gabapentin, metoprolol, methylphenidate. TECHNICAL SUMMARY: This is a digital video EEG recorded with 32 input channels reviewed with bipolar and referential montages using the modified combinatorial system nomenclature. DESCRIPTION OF RECORD: The background consists of a mixture of alpha and theta frequencies with superimposed frontally predominant beta frequencies. The background is asymmetric with higher amplitudes and admixed faster frequencies over the left usthqs-ipijcw-fbgxuvz-parietal area. Moderate voltage 3 - 5 Hz activity is present in that region. The EEG background is reactive. The occipital dominant rhythm is 9-10 Hz and well regulated. No sleep features were appreciated during the recording. PHOTIC STIMULATION: Flash stimulation was done from 1-33 Hz; no photic driving was seen; photoparoxysmal responses were absent. HV: Was notperformed. EKG: NSR. IMPRESSION: This is an abnormal awake EEG due to higher amplitudes and faster frequencies over the left hemisphere in association with a focus of slow (theta) activity in that region. CLINICAL CORRELATION: The higher amplitudes and admixed faster frequencies over the left jctote-enjmlh-ixfrxzh-parietal area may represent a breach rhythm due to the previous craniotomy and the focus of slow activity suggests the presence of an underlying structural pathology. There are no definite epileptiform discharges or electrographic seizures. Zen Townsend M.D. Epilepsy [facility] w I have reviewed the electroencephalogram and this report and agree with its interpretation. Nicko Fisher M.D. Epilepsy Attending 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 MEDICATIONS: clobazam, divalproex, gabapentin, metoprolol, methylphenidate. TECHNICAL SUMMARY: This is a digital video EEG recorded with 32 input channels reviewed with bipolar and referential montages using the modified combinatorial system nomenclature. DESCRIPTION OF RECORD: The background consists of a mixture of alpha and theta frequencies with superimposed frontally predominant beta frequencies. The background is asymmetric with higher amplitudes and admixed faster frequencies over the left tynnet-cblzof-fepzqcq-parietal area. Moderate voltage 3 - 5 Hz activity is present in that region. The EEG background is reactive. The occipital dominant rhythm is 9-10 Hz and well regulated. No sleep features were appreciated during the recording. PHOTIC STIMULATION: Flash stimulation was done from 1-33 Hz; no photic driving was seen; photoparoxysmal responses were absent. HV: Was notperformed. EKG: NSR. IMPRESSION: This is an abnormal awake EEG due to higher amplitudes and faster frequencies over the left hemisphere in association with a focus of slow (theta) activity in that region. CLINICAL CORRELATION: The higher amplitudes and admixed faster frequencies over the left uvnpco-gcupvl-jbzssfs-parietal area may represent a breach rhythm due to the previous craniotomy and the focus of slow activity suggests the presence of an underlying structural pathology. There are no definite epileptiform discharges or electrographic seizures. Zen Townsend M.D. Epilepsy [facility] w I have reviewed the electroencephalogram and this report and agree with its interpretation. Nicko Fisher M.D. Epilepsy Attending 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 MEDICATIONS: clobazam, divalproex, gabapentin, metoprolol, methylphenidate. TECHNICAL SUMMARY: This is a digital video EEG recorded with 32 input channels reviewed with bipolar and referential montages using the modified combinatorial system nomenclature. DESCRIPTION OF RECORD: The background consists of a mixture of alpha and theta frequencies with superimposed frontally predominant beta frequencies. The background is asymmetric with higher amplitudes and admixed faster frequencies over the left dyysyf-yweaqc-tyqxvqk-parietal area. Moderate voltage 3 - 5 Hz activity is present in that region. The EEG background is reactive. The occipital dominant rhythm is 9-10 Hz and well regulated. No sleep features were appreciated during the recording. PHOTIC STIMULATION: Flash stimulation was done from 1-33 Hz; no photic driving was seen; photoparoxysmal responses were absent. HV: Was notperformed. EKG: NSR. IMPRESSION: This is an abnormal awake EEG due to higher amplitudes and faster frequencies over the left hemisphere in association with a focus of slow (theta) activity in that region. CLINICAL CORRELATION: The higher amplitudes and admixed faster frequencies over the left lugsnv-wkqgnt-fwosuzn-parietal area may represent a breach rhythm due to the previous craniotomy and the focus of slow activity suggests the presence of an underlying structural pathology. There are no definite epileptiform discharges or electrographic seizures. Zen Townsend M.D. Epilepsy [facility] w I have reviewed the electroencephalogram and this report and agree with its interpretation. Nicko Fisher M.D. Epilepsy Attending 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 MEDICATIONS: clobazam, divalproex, gabapentin, metoprolol, methylphenidate. TECHNICAL SUMMARY: This is a digital video EEG recorded with 32 input channels reviewed with bipolar and referential montages using the modified combinatorial system nomenclature. DESCRIPTION OF RECORD: The background consists of a mixture of alpha and theta frequencies with superimposed frontally predominant beta frequencies. The background is asymmetric with higher amplitudes and admixed faster frequencies over the left zbqnsr-zfyixm-jweupqs-parietal area. Moderate voltage 3 - 5 Hz activity is present in that region. The EEG background is reactive. The occipital dominant rhythm is 9-10 Hz and well regulated. No sleep features were appreciated during the recording. PHOTIC STIMULATION: Flash stimulation was done from 1-33 Hz; no photic driving was seen; photoparoxysmal responses were absent. HV: Was notperformed. EKG: NSR. IMPRESSION: This is an abnormal awake EEG due to higher amplitudes and faster frequencies over the left hemisphere in association with a focus of slow (theta) activity in that region. CLINICAL CORRELATION: The higher amplitudes and admixed faster frequencies over the left gaexbu-frsapc-fpqyfsz-parietal area may represent a breach rhythm due to the previous craniotomy and the focus of slow activity suggests the presence of an underlying structural pathology. There are no definite epileptiform discharges or electrographic seizures. Zen Townsend M.D. Epilepsy [facility] w I have reviewed the electroencephalogram and this report and agree with its interpretation. Nicko Fisher M.D. Epilepsy Attending 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 MEDICATIONS: clobazam, divalproex, gabapentin, metoprolol, methylphenidate. TECHNICAL SUMMARY: This is a digital video EEG recorded with 32 input channels reviewed with bipolar and referential montages using the modified combinatorial system nomenclature. DESCRIPTION OF RECORD: The background consists of a mixture of alpha and theta frequencies with superimposed frontally predominant beta frequencies. The background is asymmetric with higher amplitudes and admixed faster frequencies over the left kupphz-jleiib-apvbgkb-parietal area. Moderate voltage 3 - 5 Hz activity is present in that region. The EEG background is reactive. The occipital dominant rhythm is 9-10 Hz and well regulated. No sleep features were appreciated during the recording. PHOTIC STIMULATION: Flash stimulation was done from 1-33 Hz; no photic driving was seen; photoparoxysmal responses were absent. HV: Was notperformed. EKG: NSR. IMPRESSION: This is an abnormal awake EEG due to higher amplitudes and faster frequencies over the left hemisphere in association with a focus of slow (theta) activity in that region. CLINICAL CORRELATION: The higher amplitudes and admixed faster frequencies over the left tvlhku-dctqlr-obrlyjo-parietal area may represent a breach rhythm due to the previous craniotomy and the focus of slow activity suggests the presence of an underlying structural pathology. There are no definite epileptiform discharges or electrographic seizures. Zen Townsend M.D. Epilepsy [facility] w I have reviewed the electroencephalogram and this report and agree with its interpretation. Nicko Fisher M.D. Epilepsy Attending 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 MEDICATIONS: clobazam, divalproex, gabapentin, metoprolol, methylphenidate. TECHNICAL SUMMARY: This is a digital video EEG recorded with 32 input channels reviewed with bipolar and referential montages using the modified combinatorial system nomenclature. DESCRIPTION OF RECORD: The background consists of a mixture of alpha and theta frequencies with superimposed frontally predominant beta frequencies. The background is asymmetric with higher amplitudes and admixed faster frequencies over the left mfqfcl-qrglhi-rwymcix-parietal area. Moderate voltage 3 - 5 Hz activity is present in that region. The EEG background is reactive. The occipital dominant rhythm is 9-10 Hz and well regulated. No sleep features were appreciated during the recording. PHOTIC STIMULATION: Flash stimulation was done from 1-33 Hz; no photic driving was seen; photoparoxysmal responses were absent. HV: Was notperformed. EKG: NSR. IMPRESSION: This is an abnormal awake EEG due to higher amplitudes and faster frequencies over the left hemisphere in association with a focus of slow (theta) activity in that region. CLINICAL CORRELATION: The higher amplitudes and admixed faster frequencies over the left qjvxgi-fpdjzs-ojvievo-parietal area may represent a breach rhythm due to the previous craniotomy and the focus of slow activity suggests the presence of an underlying structural pathology. There are no definite epileptiform discharges or electrographic seizures. Zen Townsend M.D. Epilepsy [facility] w I have reviewed the electroencephalogram and this report and agree with its interpretation. Nicko Fisher M.D. Epilepsy Attending [facility] MR, BRAIN, [id number] 20:55:00Unlisted Reason for Exam - Click Yes and Enter Reason Below->YesUnlisted Reason for Exam->hx of astrocytoma, now with worsening right side weakness and dysarthriaFINAL REPORT MR, BRAIN, WITH \\T\\ WITHOUT CONTRAST INDICATION: Unlisted Reasonfor Examhx of astrocytoma, now with worsening right side weakness and dysarthria TECHNIQUE: Multiplanar, multisequence MR imaging of the brain prior to and following intravenous administration of contrast. COMPARISON: MRI 07/06/2017 FINDINGS: Intracranial: There is a new punctate focus of restricted diffusion within the left precentral gyrus. No acute intracranial hemorrhage. No hydrocephalus. Visualized intracranial flow voids are of normal course and caliber. Stable postoperative changes of left frontal craniotomy and underlying resection cavity with surrounding encephalomalacia. Interval decrease in foci of enhancement along the posterior lateral resection margins. The previously noted 1 cm focus of susceptibility weighted signal dropout within the left precentral gyrus, previously presumed torepresent cavernous malformation, is no longer present. Increased left frontal convexity dural thickening and enhancement is likely granulation tissue reactive to surgery. Sinuses: No evidence of sinusitis. Mastoids are clear. Orbits: Globes are intact. Calvarium \\T\\ scalp: Left frontal craniotomy without offset. 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 Signed: Leidy Enamorado MDReport Verified Date/Time: 01/04/2020 20:55:02 MRI brain with and without [id number] 20:55:00Interface, External Ris In - 01/04/2020 8:57 PM CDTFINAL REPORT MR, BRAIN, WITH \\T\\ WITHOUT CONTRAST INDICATION: Unlisted Reason for Examhx of astrocytoma, now with worsening right side weakness and dysarthria TECHNIQUE: Multiplanar, multisequence MR imaging of the brain prior to and following intravenous administration of contrast. COMPARISON: MRI 07/06/2017 FINDINGS: Intracranial: There is a new punctate focus of restricted diffusion within the left precentral gyrus. No acute intracranial hemorrhage. No hydrocephalus. Visualized intracranial flow voids are of normal courseand caliber. Stable postoperative changes of left frontal craniotomy and underlying resection cavitywith surrounding encephalomalacia. Interval decrease in foci of enhancement along the posterior lateral resection margins. 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 Increased left frontal convexity dural thickening and enhancement is likely granulation tissue reactive to surgery. Sinuses: No evidence of sinusitis. Mastoids are clear. Orbits: Globes are intact. Calvarium \\T\\ scalp: Left frontal craniotomy without offset. 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 Signed: Leidy Enamorado MDRjamalort Verified Date/Time: 01/04/2020 20:55:02 [facility] without [id number] 20:55:00 Interface, External Ris In - 01/04/2020 8:57 PM CDTFINAL REPORT MR, BRAIN, WITH \\T\\ WITHOUT CONTRAST INDICATION: Unlisted Reason for Examhx of astrocytoma, now with worsening right side weakness and dysarthria TECHNIQUE: Multiplanar, multisequence MR imaging of the brain prior to and following intravenous administration of contrast. COMPARISON: MRI 07/06/2017 FINDINGS: Intracranial: There is a new punctate focus of restricted diffusion within the left precentral gyrus. No acute intracranial hemorrhage. No hydrocephalus. Visualized intracranial flow voids are of normal courseand caliber. Stable postoperative changes of left frontal craniotomy and underlying resection cavitywith surrounding encephalomalacia. Interval decrease in foci of enhancement along the posterior lateral resection margins. The previously noted 1 cm focus of susceptibility weighted signal dropout within the left precentral gyrus, previously presumed to represent cavernous malformation, is no longer pr esent. Increased left frontal convexity dural thickening and enhancement is likely granulation tissue reactive to surgery. Sinuses: No evidence of sinusitis. Mastoids are clear. Orbits: Globes are intact. Calvarium \\T\\ scalp: Left frontal craniotomy without offset. IMPRESSION:1.Punctate acute infarct w ithin the left precentral gyrus.2.Otherwise stable postoperative changes in the left frontal lobe. Signed: Leidy Enamorado Verified Date/Time: 01/04/2020 20:55:02 [facility] [id number] 20:55:00Interface, External Ris In - 01/04/2020 8:57 PM CDTFINAL REPORT MR, BRAIN, WITH \\T\\ WITHOUT CONTRAST INDICATION: Unlisted Reason for Examhx of astrocytoma, now with worsening right side weakness and dysarthria TECHNIQUE: Multiplanar, multisequence MR imaging of the brain prior to and following intravenous administration of contrast. COMPARISON: MRI 07/06/2017 FINDINGS: Intracranial: There is a new punctate focus of restricted diffusion within the left precentral gyrus. No acute intracranial hemorrhage. No hydrocephalus. Visualized intracranial flow voids are of normal courseand caliber. Stable postoperative changes of left frontal craniotomy and underlying resection cavitywith surrounding encephalomalacia. Interval decrease in foci of enhancement along the posterior lateral resection margins. 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 Increased left frontal convexity dural thickening and enhancement is likely granulation tissue reactive to surgery. Sinuses: No evidence of sinusitis. Mastoids are clear. Orbits: Globes are intact. Calvarium \\T\\ scalp: Left frontal craniotomy without offset. 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 Signed: Leidy Enamorado Verified Date/Time: 01/04/2020 20:55:02 [facility] [id number] 20:55:00Interface, External Ris In - 01/04/2020 8:57 PM CDTFINAL REPORT MR, BRAIN, WITH \\T\\ WITHOUT CONTRAST INDICATION: Unlisted Reason for Examhx of astrocytoma, now with worsening right side weakness and dysarthria TECHNIQUE: Multiplanar, multisequence MR imaging of the brain prior to and following intravenous administration of contrast. COMPARISON: MRI 07/06/2017 FINDINGS: Intracranial: There is a new punctate focus of restricted diffusion within the left precentral gyrus. No acute intracranial hemorrhage. No hydrocephalus. Visualized intracranial flow voids are of normal courseand caliber. Stable postoperative changes of left frontal craniotomy and underlying resection cavitywith surrounding encephalomalacia. Interval decrease in foci of enhancement along the posterior lateral resection margins. 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 Increased left frontal convexity dural thickening and enhancement is likely granulation tissue reactive to surgery. Sinuses: No evidence of sinusitis. Mastoids are clear. Orbits: Globes are intact. Calvarium \\T\\ scalp: Left frontal craniotomy without offset. 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 COMPARISON: MRI 07/06/2017 FINDINGS: Intracranial: There is a new punctate focus of restricted diffusion within the left precentral gyrus. No acute intracranial hemorrhage. No hydrocephalus. Visualized intracranial flow voids are of normal courseand caliber. Stable postoperative changes of left frontal craniotomy and underlying resection cavitywith surrounding encephalomalacia. Interval decrease in foci of enhancement along the posterior lateral resection margins. 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 Increased left frontal convexity dural thickening and enhancement is likely granulation tissue reactive to surgery. Sinuses: No evidence of sinusitis. Mastoids are clear. Orbits: Globes are intact. Calvarium \\T\\ scalp: Left frontal craniotomy without offset. 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 Signed: Leidy Enamorado MDReport Verified Date/Time: 01/04/2020 20:55:02 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 COMPARISON: MRI 07/06/2017 FINDINGS: Intracranial: There is a new punctate focus of restricted diffusion within the left precentral gyrus. No acute intracranial hemorrhage. No hydrocephalus. Visualized intracranial flow voids are of normal courseand caliber. Stable postoperative changes of left frontal craniotomy and underlying resection cavitywith surrounding encephalomalacia. Interval decrease in foci of enhancement along the posterior lateral resection margins. 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 Increased left frontal convexity dural thickening and enhancement is likely granulation tissue reactive to surgery. Sinuses: No evidence of sinusitis. Mastoids are clear. Orbits: Globes are intact. Calvarium \\T\\ scalp: Left frontal craniotomy without offset. 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 Signed: Leidy Enamorado Verified Date/Time: 01/04/2020 20:55:02 [facility] metabolic [id number] 09:56:00 Test Item Value Reference Range Interpretation Comments Sodium (test code 139 meq/L 136-145 = 2951-2) Potassium (test 3.6 meq/L 3.5-5.1 code = 2823-3) Chloride (test 104 meq/L 98-107 code = 2075-0) CO2 (test code = 26 meq/L 22-29 8-9) BUN (test code = 17 mg/dL 7-21 3094-0) Creatinine (test 0.73 mg/dL 0.57-1.25 code = 2160-0) Glucose (test code 104 mg/dL 70-105 = 2345-7) Calcium (test code 9.2 mg/dL 8.4-10.2 = 28802-4) EGFR (test code = 83 mL/min/1.[place] [address]-6) NOT ACCURATE CREATININE CLEARANCE IN PREDICTING GLOMERULAR FILTRATION RATE . ESTIMATED GFR I S NOT APPLICABLE FOR DIALYSIS PATIEN TS. AYESHA (test code = Websphere Message Broker Developer ID - APR AYESHA) CSpecimen slightly icteric [facility] metabolic [id number] 09:56:00 Test Item Value Reference Range Interpretation Comments Sodium (test code 139 meq/L 136-145 = 2951-2) Potassium (test 3.6 meq/L 3.5-5.1 code = 2823-3) Chloride (test 104 meq/L 98-107 code = 2075-0) CO2 (test code = 26 meq/L -2027-) BUN (test code = 17 mg/dL - 3094-0) Creatinine (test 0.73 mg/dL 0.57-1.25 code = 2160-0) Glucose (test code 104 mg/dL 70-105 = 2345-7) Calcium (test code 9.2 mg/dL 8.4-10.2 = 66992-0) EGFR (test code = 83 mL/min/1.[place] [address]-7) NOT ACCURATE CREATININE CLEARANCE IN PREDICTING GLOMERULAR FILTRATION RATE . ESTIMATED GFR I S NOT APPLICABLE FOR DIALYSIS PATIEN TSEulalio AYESHA (test code = Websphere Message Broker Developer ID - APR AYESHA) CSpecimen slightly icteric [facility] metabolic [id number] 09:56:00 Test Item Value Reference Range Interpretation Comments Sodium (test code 139 meq/L 136-145 = 2951-2) Potassium (test 3.6 meq/L 3.5-5.1 code = 2823-3) Chloride (test 104 meq/L 98-107 code = 2075-0) CO2 (test code = 26 meq/L -2027-9) BUN (test code = 17 mg/dL 7- 3094-0) Creatinine (test 0.73 mg/dL 0.57-1.25 code = 2160-0) Glucose (test code 104 mg/dL 70-105 = 2345-7) Calcium (test code 9.2 mg/dL 8.4-10.2 = 42810-0) EGFR (test code = 83 mL/min/1.[place] [address]-3) NOT ACCURATE CREATININE CLEARANCE IN PREDICTING GLOMERULAR FILTRATION RATE . ESTIMATED GFR I S NOT APPLICABLE FOR DIALYSIS PATIEN TSEulalio AYESHA (test code = Websphere Message Broker Developer ID - APR AYESHA) CSpecimen slightly icteric [facility] metabolic [id number] 09:56:00 Test Item Value Reference Range Interpretation Comments Sodium (test code 139 meq/L 136-145 = 2951-2) Potassium (test 3.6 meq/L 3.5-5.1 code = 2823-3) Chloride (test 104 meq/L 98-107 code = 2075-0) CO2 (test code = 26 meq/L -2027-) BUN (test code = 17 mg/dL - 3094-0) Creatinine (test 0.73 mg/dL 0.57-1.25 code = 2160-0) Glucose (test code 104 mg/dL 70-105 = 2345-7) Calcium (test code 9.2 mg/dL 8.4-10.2 = 38250-7) EGFR (test code = 83 mL/min/1.[place] [address]-5) NOT ACCURATE CREATININE CLEARANCE IN PREDICTING GLOMERULAR FILTRATION RATE . ESTIMATED GFR I S NOT APPLICABLE FOR DIALYSIS PATIEN TSEulalio AYESHA (test code = Websphere Message Broker Developer ID - APR AYESHA) CSpecimen slightly icteric [facility] metabolic [id number] 09:56:00 Test Item Value Reference Range Interpretation Comments Sodium (test code 139 meq/L 136-145 = 2951-2) Potassium (test 3.6 meq/L 3.5-5.1 code = 2823-3) Chloride (test 104 meq/L 98-107 code = 2075-0) CO2 (test code = 26 meq/L -2027-9) BUN (test code = 17 mg/dL 7- 3094-0) Creatinine (test 0.73 mg/dL 0.57-1.25 code = 2160-0) Glucose (test code 104 mg/dL 70-105 = 2345-7) Calcium (test code 9.2 mg/dL 8.4-10.2 = 68234-1) EGFR (test code = 83 mL/min/1.[place] [address]-6) NOT ACCURATE CREATININE CLEARANCE IN PREDICTING GLOMERULAR FILTRATION RATE . ESTIMATED GFR I S NOT APPLICABLE FOR DIALYSIS PATIEN TSEulalio AYESHA (test code = Websphere Message Broker Developer ID - APR AYESHA) CSpecimen slightly icteric [facility] metabolic [id number] 09:56:00 Test Item Value Reference Range Interpretation Comments Sodium (test code 139 meq/L 136-145 = 2951-2) Potassium (test 3.6 meq/L 3.5-5.1 code = 2823-3) Chloride (test 104 meq/L 98-107 code = 2075-0) CO2 (test code = 26 meq/L 22-29 2027-9) BUN (test code = 17 mg/dL 7-21 3094-0) Creatinine (test 0.73 mg/dL 0.57-1.25 code = 2160-0) Glucose (test code 104 mg/dL 70-105 = 2345-7) Calcium (test code 9.2 mg/dL 8.4-10.2 = 77496-0) EGFR (test code = 83 mL/min/1.[place] [address]-6) NOT ACCURATE CREATININE CLEARANCE IN PREDICTING GLOMERULAR FILTRATION RATE . ESTIMATED GFR I S NOT APPLICABLE FOR DIALYSIS PATIEN TS. AYESHA (test code = Websphere Message Broker Developer ID - APR AYESHA) [id number] 09:56:00 Test Item Value Reference Range Interpretation Comments SODIUM (BEAKER) 139 meq/L 136-145 (test code = 381) POTASSIUM (BEAKER) 3.6 meq/L 3.5-5.1 (test code = 379) CHLORIDE (BEAKER) 104 meq/L 98-107 (test code = 382) CO2 (BEAKER) (test 26 meq/L 22-29 code = 355) BLOOD UREA NITROGEN 17 mg/dL 7-21 (BEAKER) (test code = 354) CREATININE (BEAKER) 0.73 mg/dL 0.57-1.25 (test code = 358) GLUCOSE RANDOM 104 mg/dL 70-105 (BEAKER) (test code = 652) CALCIUM (BEAKER) 9.2 mg/dL 8.4-10.2 (test code = 697) EGFR (BEAKER) (test 83 mL/min/1.73 ESTIM[place] GILL GFR IS code = 1092) sq m NOT ACCURATE CREATININE CLEARANCE IN PREDICTING GLOMERULAR FILTRATION RATE . ESTIMATED GFR I S NOT APPLICABLE FOR DIALYSIS PATIEN TS. Websphere Message Broker Developer ID - APR CSpecimen slightly ictericCBC with platelet count + automated [id number] 06:53:00 Test Item Value Reference Range Interpretation Comments WBC (test code = 6690-2) 8.8 See_Comment [A utomated message] The system [employer] generated this result transmitted ref erence range: 3.5 - 10 .5 K/L. The refe rence range was not u sed to interpret this result as normal/abnor mal. RBC (test code = 789-8) 4.04 See_Comment [Au tomated message] The system [employer] generated this result transmitted ref erence range: 3.93 - 5 .22 M/L. The refe rence range was not u sed to interpret this result as normal/abnor mal. MCHC (test code = 786-4) 33.3 See_Comment [A utomated message] The system [employer] generated this result transmitted ref erence range: 32.2 - 3 5.5 GM/DL. The refe rence range was not u sed to interpret this result as normal/abnor mal. Hematocrit (test code = 39.9 % 34.1-44.9 4544-3) MCV (test code = 787-2) 98.8 fL 79.4-94.8 H MCH (test code = 785-6) 32.9 pg 25.6-32.2 H RDW (test code = 788-0) 12.1 % 11.7-14.4 Platelets (test code = 194 See_Comment [Aut omated message] 777-3) The system [employer] generated this result transmitted ref erence range: 150 - 45 0 K/CU MM. The referen ce range was not u sed to interpret this result as normal/abnor mal. MPV (test code = 10.7 fL 9.4-12.3 58670-4) nRBC (test code = 413) 0 See_Comment [Aut omated message] The system [employer] generated this result transmitted ref erence range: 0 - 0 /1 00 WBC. The refere nce range was not u sed to interpret this result as normal/abnor mal. % Neutros (test code = 57 % 429) % Lymphs (test code = 32 % 430) % Monos (test code = 10 % 431) % Eos (test code = 432) 1 % % Baso (test code = 437) 0 % # Neutros (test code = 5.00 See_Comment [Aut omated message] 670) The system [employer] generated this result transmitted ref erence range: 1.56 - 6 .13 K/L. The refe rence range was not u sed to interpret this result as normal/abnor mal. # Lymphs (test code = 2.83 See_Comment [Auto mated message] 414) The system [employer] generated this result transmitted ref erence range: 1.18 - 3 .74 K/L. The refe rence range was not u sed to interpret this result as normal/abnor mal. # Monos (test code = 0.91 See_Comment H [Autom ated message] 415) The system [employer] generated this result transmitted ref erence range: 0.24 - 0 .36 K/L. The refe rence range was not u sed to interpret this result as normal/abnor mal. # Eos (test code = 416) 0.05 See_Comment [Au tomated message] The system [employer] generated this result transmitted ref erence range: 0.04 - 0 .36 K/L. The refe rence range was not u sed to interpret this result as normal/abnor mal. # Baso (test code = 417) 0.02 See_Comment [A utomated message] The system [employer] generated this result transmitted ref erence range: 0.01 - 0 .08 K/L. The refe rence range was not u sed to interpret this result as normal/abnor mal. Immature 0 % 0-1 Granulocytes-Relative (test code = 2801) Lab Interpretation (test Abnormal code = 28273-3) [facility] with platelet count + automated [id number] 06:53:00 Test Item Value Reference Range Interpretation Comments WBC (test code = 6690-2) 8.8 See_Comment [A utomated message] The system [employer] generated this result transmitted ref erence range: 3.5 - 10 .5 K/L. The refe rence range was not u sed to interpret this result as normal/abnor mal. RBC (test code = 789-8) 4.04 See_Comment [Au tomated message] The system [employer] generated this result transmitted ref erence range: 3.93 - 5 .22 M/L. The refe rence range was not u sed to interpret this result as normal/abnor mal. MCHC (test code = 786-4) 33.3 See_Comment [A utomated message] The system [employer] generated this result transmitted ref erence range: 32.2 - 3 5.5 GM/DL. The refe rence range was not u sed to interpret this result as normal/abnor mal. Hematocrit (test code = 39.9 % 34.1-44.9 4544-3) MCV (test code = 787-2) 98.8 fL 79.4-94.8 H MCH (test code = 785-6) 32.9 pg 25.6-32.2 H RDW (test code = 788-0) 12.1 % 11.7-14.4 Platelets (test code = 194 See_Comment [Aut omated message] 777-3) The system [employer] generated this result transmitted ref erence range: 150 - 45 0 K/CU MM. The referen ce range was not u sed to interpret this result as normal/abnor mal. MPV (test code = 10.7 fL 9.4-12.3 40883-4) nRBC (test code = 413) 0 See_Comment [Aut omated message] The system [employer] generated this result transmitted ref erence range: 0 - 0 /1 00 WBC. The refere nce range was not u sed to interpret this result as normal/abnor mal. % Neutros (test code = 57 % 429) % Lymphs (test code = 32 % 430) % Monos (test code = 10 % 431) % Eos (test code = 432) 1 % % Baso (test code = 437) 0 % # Neutros (test code = 5.00 See_Comment [Aut omated message] 670) The system [employer] generated this result transmitted ref erence range: 1.56 - 6 .13 K/L. The refe rence range was not u sed to interpret this result as normal/abnor mal. # Lymphs (test code = 2.83 See_Comment [Auto mated message] 414) The system [employer] generated this result transmitted ref erence range: 1.18 - 3 .74 K/L. The refe rence range was not u sed to interpret this result as normal/abnor mal. # Monos (test code = 0.91 See_Comment H [Autom ated message] 415) The system [employer] generated this result transmitted ref erence range: 0.24 - 0 .36 K/L. The refe rence range was not u sed to interpret this result as normal/abnor mal. # Eos (test code = 416) 0.05 See_Comment [Au tomated message] The system [employer] generated this result transmitted ref erence range: 0.04 - 0 .36 K/L. The refe rence range was not u sed to interpret this result as normal/abnor mal. # Baso (test code = 417) 0.02 See_Comment [A utomated message] The system [employer] generated this result transmitted ref erence range: 0.01 - 0 .08 K/L. The refe rence range was not u sed to interpret this result as normal/abnor mal. Immature 0 % 0-1 Granulocytes-Relative (test code = 2801) Lab Interpretation (test Abnormal code = 37175-7) [facility] with platelet count + automated [id number] 06:53:00 Test Item Value Reference Range Interpretation Comments WBC (test code = 6690-2) 8.8 See_Comment [A utomated message] The system Contin[employer] generated this result transmitted ref erence range: 3.5 - 10 .5 K/L. The refe rence range was not u sed to interpret this result as normal/abnor mal. RBC (test code = 789-8) 4.04 See_Comment [Au tomated message] The system Contin[employer] generated this result transmitted ref erence range: 3.93 - 5 .22 M/L. The refe rence range was not u sed to interpret this result as normal/abnor mal. MCHC (test code = 786-4) 33.3 See_Comment [A utomated message] The system Contin[employer] generated this result transmitted ref erence range: 32.2 - 3 5.5 GM/DL. The refe rence range was not u sed to interpret this result as normal/abnor mal. Hematocrit (test code = 39.9 % 34.1-44.9 4544-3) MCV (test code = 787-2) 98.8 fL 79.4-94.8 H MCH (test code = 785-6) 32.9 pg 25.6-32.2 H RDW (test code = 788-0) 12.1 % 11.7-14.4 Platelets (test code = 194 See_Comment [Aut omated message] 777-3) The system [employer] generated this result transmitted ref erence range: 150 - 45 0 K/CU MM. The referen ce range was not u sed to interpret this result as normal/abnor mal. MPV (test code = 10.7 fL 9.4-12.3 17147-8) nRBC (test code = 413) 0 See_Comment [Aut omated message] The system [employer] generated this result transmitted ref erence range: 0 - 0 /1 00 WBC. The refere nce range was not u sed to interpret this result as normal/abnor mal. % Neutros (test code = 57 % 429) % Lymphs (test code = 32 % 430) % Monos (test code = 10 % 431) % Eos (test code = 432) 1 % % Baso (test code = 437) 0 % # Neutros (test code = 5.00 See_Comment [Aut omated message] 670) The system [employer] generated this result transmitted ref erence range: 1.56 - 6 .13 K/L. The refe rence range was not u sed to interpret this result as normal/abnor mal. # Lymphs (test code = 2.83 See_Comment [Auto mated message] 414) The system [employer] generated this result transmitted ref erence range: 1.18 - 3 .74 K/L. The refe rence range was not u sed to interpret this result as normal/abnor mal. # Monos (test code = 0.91 See_Comment H [Autom ated message] 415) The system [employer] generated this result transmitted ref erence range: 0.24 - 0 .36 K/L. The refe rence range was not u sed to interpret this result as normal/abnor mal. # Eos (test code = 416) 0.05 See_Comment [Au tomated message] The system Contin[employer] generated this result transmitted ref erence range: 0.04 - 0 .36 K/L. The refe rence range was not u sed to interpret this result as normal/abnor mal. # Baso (test code = 417) 0.02 See_Comment [A utomated message] The system Contin[employer] generated this result transmitted ref erence range: 0.01 - 0 .08 K/L. The refe rence range was not u sed to interpret this result as normal/abnor mal. Immature 0 % 0-1 Granulocytes-Relative (test code = 2801) Lab Interpretation (test Abnormal code = 98579-0) [facility] with platelet count + automated [id number] 06:53:00 Test Item Value Reference Range Interpretation Comments WBC (test code = 6690-2) 8.8 See_Comment [A utomated message] The system Contin[employer] generated this result transmitted ref erence range: 3.5 - 10 .5 K/L. The refe rence range was not u sed to interpret this result as normal/abnor mal. RBC (test code = 789-8) 4.04 See_Comment [Au tomated message] The system Contin[employer] generated this result transmitted ref erence range: 3.93 - 5 .22 M/L. The refe rence range was not u sed to interpret this result as normal/abnor mal. MCHC (test code = 786-4) 33.3 See_Comment [A utomated message] The system Contin[employer] generated this result transmitted ref erence range: 32.2 - 3 5.5 GM/DL. The refe rence range was not u sed to interpret this result as normal/abnor mal. Hematocrit (test code = 39.9 % 34.1-44.9 4544-3) MCV (test code = 787-2) 98.8 fL 79.4-94.8 H MCH (test code = 785-6) 32.9 pg 25.6-32.2 H RDW (test code = 788-0) 12.1 % 11.7-14.4 Platelets (test code = 194 See_Comment [Aut omated message] 777-3) The system Contin[employer] generated this result transmitted ref erence range: 150 - 45 0 K/CU MM. The referen ce range was not u sed to interpret this result as normal/abnor mal. MPV (test code = 10.7 fL 9.4-12.3 66213-7) nRBC (test code = 413) 0 See_Comment [Aut omated message] The system Contin[employer] generated this result transmitted ref erence range: 0 - 0 /1 00 WBC. The refere nce range was not u sed to interpret this result as normal/abnor mal. % Neutros (test code = 57 % 429) % Lymphs (test code = 32 % 430) % Monos (test code = 10 % 431) % Eos (test code = 432) 1 % % Baso (test code = 437) 0 % # Neutros (test code = 5.00 See_Comment [Aut omated message] 670) The system Contin[employer] generated this result transmitted ref erence range: 1.56 - 6 .13 K/L. The refe rence range was not u sed to interpret this result as normal/abnor mal. # Lymphs (test code = 2.83 See_Comment [Auto mated message] 414) The system [employer] generated this result transmitted ref erence range: 1.18 - 3 .74 K/L. The refe rence range was not u sed to interpret this result as normal/abnor mal. # Monos (test code = 0.91 See_Comment H [Autom ated message] 415) The system [employer] generated this result transmitted ref erence range: 0.24 - 0 .36 K/L. The refe rence range was not u sed to interpret this result as normal/abnor mal. # Eos (test code = 416) 0.05 See_Comment [Au tomated message] The system [employer] generated this result transmitted ref erence range: 0.04 - 0 .36 K/L. The refe rence range was not u sed to interpret this result as normal/abnor mal. # Baso (test code = 417) 0.02 See_Comment [A utomated message] The system [employer] generated this result transmitted ref erence range: 0.01 - 0 .08 K/L. The refe rence range was not u sed to interpret this result as normal/abnor mal. Immature 0 % 0-1 Granulocytes-Relative (test code = 2801) Lab Interpretation (test Abnormal code = 21640-0) [facility] with platelet count + automated [id number] 06:53:00 Test Item Value Reference Range Interpretation Comments WBC (test code = 6690-2) 8.8 See_Comment [A utomated message] The system [employer] generated this result transmitted ref erence range: 3.5 - 10 .5 K/L. The refe rence range was not u sed to interpret this result as normal/abnor mal. RBC (test code = 789-8) 4.04 See_Comment [Au tomated message] The system [employer] generated this result transmitted ref erence range: 3.93 - 5 .22 M/L. The refe rence range was not u sed to interpret this result as normal/abnor mal. MCHC (test code = 786-4) 33.3 See_Comment [A utomated message] The system [employer] generated this result transmitted ref erence range: 32.2 - 3 5.5 GM/DL. The refe rence range was not u sed to interpret this result as normal/abnor mal. Hematocrit (test code = 39.9 % 34.1-44.9 4544-3) MCV (test code = 787-2) 98.8 fL 79.4-94.8 H MCH (test code = 785-6) 32.9 pg 25.6-32.2 H RDW (test code = 788-0) 12.1 % 11.7-14.4 Platelets (test code = 194 See_Comment [Aut omated message] 777-3) The system [employer] generated this result transmitted ref erence range: 150 - 45 0 K/CU MM. The referen ce range was not u sed to interpret this result as normal/abnor mal. MPV (test code = 10.7 fL 9.4-12.3 21779-2) nRBC (test code = 413) 0 See_Comment [Aut omated message] The system [employer] generated this result transmitted ref erence range: 0 - 0 /1 00 WBC. The refere nce range was not u sed to interpret this result as normal/abnor mal. % Neutros (test code = 57 % 429) % Lymphs (test code = 32 % 430) % Monos (test code = 10 % 431) % Eos (test code = 432) 1 % % Baso (test code = 437) 0 % # Neutros (test code = 5.00 See_Comment [Aut omated message] 670) The system [employer] generated this result transmitted ref erence range: 1.56 - 6 .13 K/L. The refe rence range was not u sed to interpret this result as normal/abnor mal. # Lymphs (test code = 2.83 See_Comment [Auto mated message] 414) The system [employer] generated this result transmitted ref erence range: 1.18 - 3 .74 K/L. The refe rence range was not u sed to interpret this result as normal/abnor mal. # Monos (test code = 0.91 See_Comment H [Autom ated message] 415) The system [employer] generated this result transmitted ref erence range: 0.24 - 0 .36 K/L. The refe rence range was not u sed to interpret this result as normal/abnor mal. # Eos (test code = 416) 0.05 See_Comment [Au tomated message] The system [employer] generated this result transmitted ref erence range: 0.04 - 0 .36 K/L. The refe rence range was not u sed to interpret this result as normal/abnor mal. # Baso (test code = 417) 0.02 See_Comment [A utomated message] The system [employer] generated this result transmitted ref erence range: 0.01 - 0 .08 K/L. The refe rence range was not u sed to interpret this result as normal/abnor mal. Immature 0 % 0-1 Granulocytes-Relative (test code = 2801) Lab Interpretation (test Abnormal code = 64777-4) [facility] with platelet count + automated [id number] 06:53:00 Test Item Value Reference Range Interpretation Comments WBC (test code = 6690-2) 8.8 See_Comment [A utomated message] The system [employer] generated this result transmitted ref erence range: 3.5 - 10 .5 K/L. The refe rence range was not u sed to interpret this result as normal/abnor mal. RBC (test code = 789-8) 4.04 See_Comment [Au tomated message] The system [employer] generated this result transmitted ref erence range: 3.93 - 5 .22 M/L. The refe rence range was not u sed to interpret this result as normal/abnor mal. MCHC (test code = 786-4) 33.3 See_Comment [A utomated message] The system [employer] generated this result transmitted ref erence range: 32.2 - 3 5.5 GM/DL. The refe rence range was not u sed to interpret this result as normal/abnor mal. Hematocrit (test code = 39.9 % 34.1-44.9 4544-3) MCV (test code = 787-2) 98.8 fL 79.4-94.8 H MCH (test code = 785-6) 32.9 pg 25.6-32.2 H RDW (test code = 788-0) 12.1 % 11.7-14.4 Platelets (test code = 194 See_Comment [Aut omated message] 777-3) The system [employer] generated this result transmitted ref erence range: 150 - 45 0 K/CU MM. The referen ce range was not u sed to interpret this result as normal/abnor mal. MPV (test code = 10.7 fL 9.4-12.3 95156-6) nRBC (test code = 413) 0 See_Comment [Aut omated message] The system [employer] generated this result transmitted ref erence range: 0 - 0 /1 00 WBC. The refere nce range was not u sed to interpret this result as normal/abnor mal. % Neutros (test code = 57 % 429) % Lymphs (test code = 32 % 430) % Monos (test code = 10 % 431) % Eos (test code = 432) 1 % % Baso (test code = 437) 0 % # Neutros (test code = 5.00 See_Comment [Aut omated message] 670) The system [employer] generated this result transmitted ref erence range: 1.56 - 6 .13 K/L. The refe rence range was not u sed to interpret this result as normal/abnor mal. # Lymphs (test code = 2.83 See_Comment [Auto mated message] 414) The system [employer] generated this result transmitted ref erence range: 1.18 - 3 .74 K/L. The refe rence range was not u sed to interpret this result as normal/abnor mal. # Monos (test code = 0.91 See_Comment H [Autom ated message] 415) The system [employer] generated this result transmitted ref erence range: 0.24 - 0 .36 K/L. The refe rence range was not u sed to interpret this result as normal/abnor mal. # Eos (test code = 416) 0.05 See_Comment [Au tomated message] The system [employer] generated this result transmitted ref erence range: 0.04 - 0 .36 K/L. The refe rence range was not u sed to interpret this result as normal/abnor mal. # Baso (test code = 417) 0.02 See_Comment [A utomated message] The system [employer] generated this result transmitted ref erence range: 0.01 - 0 .08 K/L. The refe rence range was not u sed to interpret this result as normal/abnor mal. Immature 0 % 0-1 Granulocytes-Relative (test code = 2801) Lab Interpretation (test Abnormal code = 86855-0) [facility] W/PLT COUNT & AUTO [id number] 06:53:00 Test Item Value Reference Range Interpretation Comments WHITE BLOOD CELL COUNT (BEAKER) 8.8 K/ L 3.5-10.5 (test code = 775) RED BLOOD CELL COUNT (BEAKER) 4.04 M/ L 3.93-5.22 (test code = 761) HEMOGLOBIN (BEAKER) (test code = 13.3 GM/DL 11.2-15.7 410) HEMATOCRIT (BEAKER) (test code = 39.9 % 34.1-44.9 411) MEAN CORPUSCULAR VOLUME (BEAKER) 98.8 fL 79.4-94.8 H (test code = 753) MEAN CORPUSCULAR HEMOGLOBIN 32.9 pg 25.6-32.2 H (BEAKER) (test code = 751) MEAN CORPUSCULAR HEMOGLOBIN CONC 33.3 GM/DL 32.2-35.5 (BEAKER) (test code = 752) RED CELL DISTRIBUTION WIDTH 12.1 % 11.7-14.4 (BEAKER) (test code = 412) PLATELET COUNT (BEAKER) (test 194 K/CU MM 150-450 code = 756) MEAN PLATELET VOLUME (BEAKER) 10.7 fL 9.4-12.3 (test code = 754) NUCLEATED RED BLOOD CELLS 0 /100 WBC 0-0 (BEAKER) (test code = 413) NEUTROPHILS RELATIVE PERCENT 57 % (BEAKER) (test code = 429) LYMPHOCYTES RELATIVE PERCENT 32 % (BEAKER) (test code = 430) MONOCYTES RELATIVE PERCENT 10 % (BEAKER) (test code = 431) EOSINOPHILS RELATIVE PERCENT 1 % (BEAKER) (test code = 432) BASOPHILS RELATIVE PERCENT 0 % (BEAKER) (test code = 437) NEUTROPHILS ABSOLUTE COUNT 5.00 K/ L 1.56-6.13 (BEAKER) (test code = 670) LYMPHOCYTES ABSOLUTE COUNT 2.83 K/ L 1.18-3.74 (BEAKER) (test code = 414) MONOCYTES ABSOLUTE COUNT (BEAKER) 0.91 K/ L 0.24-0.36 H (test code = 415) EOSINOPHILS ABSOLUTE COUNT 0.05 K/ L 0.04-0.36 (BEAKER) (test code = 416) BASOPHILS ABSOLUTE COUNT (BEAKER) 0.02 K/ L 0.01-0.08 (test code = 417) IMMATURE GRANULOCYTES-RELATIVE 0 % 0-1 PERCENT (BEAKER) (test code = 2801) Urinalysis w/Microscopic + Reflex to [id number] 22:54:00 Test Item Value Reference Range Interpretation Comments Color, UA (test Yellow code = 5778-6) Clarity, UA (test Clear code = 5767-9) Specific [place], 1.017 1.001-1.035 UA (test code = 5811-5) pH, UA (test code 8.0 5.0-8.0 = 5803-2) Protein, UA (test Negative Negative code = 21397-9) Glucose, UA (test Negative Negative code = 365) Ketones, UA (test Negative Negative code = 2514-8) Bilirubin, UA Negative Negative (test code = 19781-7) Blood, UA (test Negative Negative code = 42644-2) Nitrite, UA (test Negative Negative code = 5802-4) Leukocytes, UA Negative Negative (test code = 5799-2) Urobilinogen, UA 0.2 mg/dL 0.2-1 (test code = 20654-0) RBC, UA (test 1 See_Comment [Automated me ssage] code = 84557-0) The system [facility] generated this result transmit gill reference range : /HPF. The refer ence range was not u sed to interpret th is result as normal/abnormal . WBC, UA (test 7 See_Comment [Automated me ssage] code = 5821-4) The system [facility] generated this result transmit gill reference range : /HPF. The refer ence range was not u sed to interpret th is result as normal/abnormal . Mucus (test code Rare = 8247-9) Squam Epithel, UA 1 See_Comment [Automate d message] (test code = The system [facility] [place] [address]-2) generated this result transmit gill reference range : /HPF. The refer ence range was not u sed to interpret th is result as normal/abnormal . Specimen Source (test code = 2795) AYESHA (test code = [employer] Message Broker Developer ID - AYESHA) [auto][employer] Message Broker Developer ID - tech [facility] Reflex to Culture 2020-01-03 22:54:00 Test Item Value Reference Range Interpretation Comments Color, UA (test Yellow code = 5778-6) Clarity, UA (test Clear code = 5767-9) Specific [place], 1.017 1.001-1.035 UA (test code = 5811-5) pH, UA (test code 8.0 5.0-8.0 = 5803-2) Protein, UA (test Negative Negative code = 49249-1) Glucose, UA (test Negative Negative code = 365) Ketones, UA (test Negative Negative code = 2514-8) Bilirubin, UA Negative Negative (test code = 26376-9) Blood, UA (test Negative Negative code = 92246-8) Nitrite, UA (test Negative Negative code = 5802-4) Leukocytes, UA Negative Negative (test code = 5799-2) Urobilinogen, UA 0.2 mg/dL 0.2-1 (test code = 13391-6) RBC, UA (test 1 See_Comment [Automated me ssage] code = 94879-2) The system [employer] [facility] generated this result transmit gill reference range : /HPF. The refer ence range was not u sed to interpret th is result as normal/abnormal . WBC, UA (test 7 See_Comment [Automated me ssage] code = 5821-4) The system [facility] generated this result transmit gill reference range : /HPF. The refer ence range was not u sed to interpret th is result as normal/abnormal . Mucus (test code Rare = 8247-9) Squam Epithel, UA 1 See_Comment [Automate d message] (test code = The system [facility] [place] [address]-8) generated this result transmit glil reference range : /HPF. The refer ence range was not u sed to interpret th is result as normal/abnormal . Specimen Source (test code = 2795) AYESHA (test code = [employer] Message Broker Developer ID - AYESHA) [auto][employer] Message Broker Developer ID - tech [facility]/Microscopic + Reflex to Culture 2020-01-03 22:54:00 Test Item Value Reference Range Interpretation Comments Color, UA (test Yellow code = 5778-6) Clarity, UA (test Clear code = 5767-9) Specific [place], 1.017 1.001-1.035 UA (test code = 5811-5) pH, UA (test code 8.0 5.0-8.0 = 5803-2) Protein, UA (test Negative Negative code = 36626-6) Glucose, UA (test Negative Negative code = 365) Ketones, UA (test Negative Negative code = 2514-8) Bilirubin, UA Negative Negative (test code = 74201-2) Blood, UA (test Negative Negative code = 61618-3) Nitrite, UA (test Negative Negative code = 5802-4) Leukocytes, UA Negative Negative (test code = 5799-2) Urobilinogen, UA 0.2 mg/dL 0.2-1 (test code = 56304-5) RBC, UA (test 1 See_Comment [Automated me ssage] code = 39071-9) The system [facility] generated this result transmit gill reference range : /HPF. The refer ence range was not u sed to interpret th is result as normal/abnormal . WBC, UA (test 7 See_Comment [Automated me ssage] code = 5821-4) The system [facility] generated this result transmit gill reference range : /HPF. The refer ence range was not u sed to interpret th is result as normal/abnormal . Mucus (test code Rare = 8247-9) Squam Epithel, UA 1 See_Comment [Automate d message] (test code = The system [facility] [place] [address]-0) generated this result transmit gill reference range : /HPF. The refer ence range was not u sed to interpret th is result as normal/abnormal . Specimen Source (test code = 2795) AYESHA (test code = [employer] Message Broker Developer ID - AYESHA) [auto][employer] Message Broker Developer ID - tech [facility]/Microscopic + Reflex to Culture 2020-01-03 22:54:00 Test Item Value Reference Range Interpretation Comments Color, UA (test Yellow code = 5778-6) Clarity, UA (test Clear code = 5767-9) Specific [place], 1.017 1.001-1.035 UA (test code = 5811-5) pH, UA (test code 8.0 5.0-8.0 = 5803-2) Protein, UA (test Negative Negative code = 26117-7) Glucose, UA (test Negative Negative code = 365) Ketones, UA (test Negative Negative code = 2514-8) Bilirubin, UA Negative Negative (test code = 77385-0) Blood, UA (test Negative Negative code = 80969-8) Nitrite, UA (test Negative Negative code = 5802-4) Leukocytes, UA Negative Negative (test code = 5799-2) Urobilinogen, UA 0.2 mg/dL 0.2-1 (test code = 69542-2) RBC, UA (test 1 See_Comment [Automated me ssage] code = 02338-3) The system [facility] generated this result transmit gill reference range : /HPF. The refer ence range was not u sed to interpret th is result as normal/abnormal . WBC, UA (test 7 See_Comment [Automated me ssage] code = 5821-4) The system [facility] generated this result transmit gill reference range : /HPF. The refer ence range was not u sed to interpret th is result as normal/abnormal . Mucus (test code Rare = 8247-9) Squam Epithel, UA 1 See_Comment [Automate d message] (test code = The system [facility] [place] 41787-9) generated this result transmit gill reference range : /HPF. The refer ence range was not u sed to interpret th is result as normal/abnormal . Specimen Source (test code = 2795) AYESHA (test code = [employer] Message Broker Developer ID - AYESHA) [auto][employer] Message Broker Developer ID - tech [facility]/Microscopic + Reflex to Culture 2020-01-03 22:54:00 Test Item Value Reference Range Interpretation Comments Color, UA (test Yellow code = 5778-6) Clarity, UA (test Clear code = 5767-9) Specific [place], 1.017 1.001-1.035 UA (test code = 5811-5) pH, UA (test code 8.0 5.0-8.0 = 5803-2) Protein, UA (test Negative Negative code = 20063-1) Glucose, UA (test Negative Negative code = 365) Ketones, UA (test Negative Negative code = 2514-8) Bilirubin, UA Negative Negative (test code = 19953-6) Blood, UA (test Negative Negative code = 00458-1) Nitrite, UA (test Negative Negative code = 5802-4) Leukocytes, UA Negative Negative (test code = 5799-2) Urobilinogen, UA 0.2 mg/dL 0.2-1 (test code = 08362-0) RBC, UA (test 1 See_Comment [Automated me ssage] code = 75175-0) The system [facility] generated this result transmit gill reference range : /HPF. The refer ence range was not u sed to interpret th is result as normal/abnormal . WBC, UA (test 7 See_Comment [Automated me ssage] code = 5821-4) The system [facility] generated this result transmit gill reference range : /HPF. The refer ence range was not u sed to interpret th is result as normal/abnormal . Mucus (test code Rare = 8247-9) Squam Epithel, UA 1 See_Comment [Automate d message] (test code = The system [facility] [place] 77181-6) generated this result transmit gill reference range : /HPF. The refer ence range was not u sed to interpret th is result as normal/abnormal . Specimen Source (test code = 2795) AYESHA (test code = [employer] Message Broker Developer ID - AYESHA) [auto][employer] Message Broker Developer ID - tech [facility] [id number] 22:54:00 Test Item Value Reference Range Interpretation Comments COLOR (BEAKER) (test code = 470) Yellow CLARITY (BEAKER) (test code = 469) Clear SPECIFIC GRAVITY UA (BEAKER) (test 1.017 1.001-1.035 code = 468) PH UA (BEAKER) (test code = 467) 8.0 5.0-8.0 PROTEIN UA (BEAKER) (test code = Negative Negative 464) GLUCOSE UA (BEAKER) (test code = Negative Negative 365) KETONES UA (BEAKER) (test code = Negative Negative 371) BILIRUBIN UA (BEAKER) (test code = Negative Negative 462) BLOOD UA (BEAKER) (test code = 461) Negative Negative NITRITE UA (BEAKER) (test code = Negative Negative 465) LEUKOCYTE ESTERASE UA (BEAKER) Negative Negative (test code = 466) UROBILINOGEN UA (BEAKER) (test code 0.2 mg/dL 0.2-1.0 = 463) RBC UA (BEAKER) (test code = 519) 1 /HPF WBC UA (BEAKER) (test code = 520) 7 /HPF MUCUS (BEAKER) (test code = 1574) Rare SQUAMOUS EPITHELIAL (BEAKER) (test 1 /HPF code = 516) SOURCE(BEAKER) (test code = 2795) [employer] Message Broker Developer ID - [auto][employer] Message Broker Developer ID - ChristelRS-CoV2/RT-PCR (Symptomatic ONLY) 2020-01-03 21:57:00 Test Item Value Reference Range Interpretation Comments SARS-COV2/RT-PCR Negative Not Detected, (test code = Negative, See 85722-2) external report for linked test SARS-COV-2 [facility] (test code = 13056-6) AYESHA (test code = Negative results do not AYESHA) preclude SARS-CoV-2 infection and should not be used as the sole basis for patient management decisions. Negative results must be combined with clinical observations, patient history, and epidemiological information. A false negative result may occur if a specimen is improperly collected, transported or handled. The limit of detection for this assay is 250 copies/mL. This SARS CoV-2 test is a rapid, real-time RT-PCR test intended for the qualitative detection of nucleic acid from SARS-CoV-2 in a nasopharyngeal swab specimen collected from individuals suspected of COVID-19 by their healthcare provider. This test has not been Food and Drug Administration (FDA) cleared or approved and has been authorized by FDA under an Emergency Use Authorization (EUA). This EUA will be effective until the declaration that circumstances exist justifying the authorization of the emergency use of in vitro diagnostic tests for detection and/or diagnosis of COVID-19 is terminated under Section 564(b)(2) of the Act or the EUA is revoked under Section 564(g) of the Act. Fact Sheet for Healthcare Providers:https://www.[employer]/Documents/Xper t%20Xpress%20SARS%20CoV- 2/Fact%20Sheets/302-3802 %39KCMY-LNM-1%20HEALTHCA RE%20PROVIDERS%20FACT%20 SHEET.pdf Fact Sheet for Healthcare Patients:https://www.[employer]/Documents/Xpert %20Xpress%20SARS%20CoV-2 /Fact%20Sheets/3023801% 46AENC-NAE-1%20PATIENT%2 0FACT%20SHEET.pdf Performing Laboratory:[facility], [place] [id number] [place], [place] [address]ARS-CoV2/RT-PCR (Symptomatic ONLY)2020-01-03 21:57:00 Test Item Value Reference Range Interpretation Comments SARS-COV2/RT-PCR Negative Not Detected, (test code = Negative, See 50139-8) external report for linked test SARS-COV-2 [facility] (test code = 32052-1) AYESHA (test code = Negative results do not AYESHA) preclude SARS-CoV-2 infection and should not be used as the sole basis for patient management decisions. Negative results must be combined with clinical observations, patient history, and epidemiological information. A false negative result may occur if a specimen is improperly collected, transported or handled. The limit of detection for this assay is 250 copies/mL. This SARS CoV-2 test is a rapid, real-time RT-PCR test intended for the qualitative detection of nucleic acid from SARS-CoV-2 in a nasopharyngeal swab specimen collected from individuals suspected of COVID-19 by their healthcare provider. This test has not been Food and Drug Administration (FDA) cleared or approved and has been authorized by FDA under an Emergency Use Authorization (EUA). This EUA will be effective until the declaration that circumstances exist justifying the authorization of the emergency use of in vitro diagnostic tests for detection and/or diagnosis of COVID-19 is terminated under Section 564(b)(2) of the Act or the EUA is revoked under Section 564(g) of the Act. Fact Sheet for Healthcare Providers:https://www.[employer]/Documents/Xper t%20Xpress%20SARS%20CoV- 2/Fact%20Sheets/302-3802 %33ACGI-XSM-9%20HEALTHCA RE%20PROVIDERS%20FACT%20 SHEET.pdf Fact Sheet for Healthcare Patients:https://www.[employer]/Documents/Xpert %20Xpress%20SARS%20CoV-2 /Fact%20Sheets/302-3801% 05BLKG-ENN-4%20PATIENT%2 0FACT%20SHEET.pdf Performing Laboratory:[facility], [place] [id number] [place], [place] [address]ARS-CoV2/RT-PCR (Symptomatic ONLY)2020-01-03 21:57:00 Test Item Value Reference Range Interpretation Comments SARS-COV2/RT-PCR Negative Not Detected, (test code = Negative, See 29662-0) external report for linked test SARS-COV-2 [facility] (test code = 61603-7) AYESHA (test code = Negative results do not AYESHA) preclude SARS-CoV-2 infection and should not be used as the sole basis for patient management decisions. Negative results must be combined with clinical observations, patient history, and epidemiological information. A false negative result may occur if a specimen is improperly collected, transported or handled. The limit of detection for this assay is 250 copies/mL. This SARS CoV-2 test is a rapid, real-time RT-PCR test intended for the qualitative detection of nucleic acid from SARS-CoV-2 in a nasopharyngeal swab specimen collected from individuals suspected of COVID-19 by their healthcare provider. This test has not been Food and Drug Administration (FDA) cleared or approved and has been authorized by FDA under an Emergency Use Authorization (EUA). This EUA will be effective until the declaration that circumstances exist justifying the authorization of the emergency use of in vitro diagnostic tests for detection and/or diagnosis of COVID-19 is terminated under Section 564(b)(2) of the Act or the EUA is revoked under Section 564(g) of the Act. Fact Sheet for Healthcare Providers:https://www.[employer]/Documents/Xper t%20Xpress%20SARS%20CoV- 2/Fact%20Sheets/302-3802 %14BZNX-QUA-5%20HEALTHCA RE%20PROVIDERS%20FACT%20 SHEET.pdf Fact Sheet for Healthcare Patients:https://www.[employer]/Documents/Xpert %20Xpress%20SARS%20CoV-2 /Fact%20Sheets/302-3801% 53VNIQ-AKX-4%20PATIENT%2 0FACT%20SHEET.pdf Performing Laboratory:[facility], [place] [address] [place], [place] [address]ARS-CoV2/RT-PCR (Symptomatic ONLY)2020-01-03 21:57:00 Test Item Value Reference Range Interpretation Comments SARS-COV2/RT-PCR Negative Not Detected, (test code = Negative, See 50913-9) external report for linked test SARS-COV-2 [facility] (test code = 00675-7) AYESHA (test code = Negative results do not AYESHA) preclude SARS-CoV-2 infection and should not be used as the sole basis for patient management decisions. Negative results must be combined with clinical observations, patient history, and epidemiological information. A false negative result may occur if a specimen is improperly collected, transported or handled. The limit of detection for this assay is 250 copies/mL. This SARS CoV-2 test is a rapid, real-time RT-PCR test intended for the qualitative detection of nucleic acid from SARS-CoV-2 in a nasopharyngeal swab specimen collected from individuals suspected of COVID-19 by their healthcare provider. This test has not been Food and Drug Administration (FDA) cleared or approved and has been authorized by FDA under an Emergency Use Authorization (EUA). This EUA will be effective until the declaration that circumstances exist justifying the authorization of the emergency use of in vitro diagnostic tests for detection and/or diagnosis of COVID-19 is terminated under Section 564(b)(2) of the Act or the EUA is revoked under Section 564(g) of the Act. Fact Sheet for Healthcare Providers:https://www.Personal [employer]/Documents/Xper t%20Xpress%20SARS%20CoV- 2/Fact%20Sheets/3023802 %66UUHT-ABT-4%20HEALTHCA RE%20PROVIDERS%20FACT%20 SHEET.pdf Fact Sheet for Healthcare Patients:https://www.[employer]/Documents/Xpert %20Xpress%20SARS%20CoV-2 /Fact%20Sheets/3023801% 75WMQQ-PBG-7%20PATIENT%2 0FACT%20SHEET.pdf Performing Laboratory:[facility]-CoV2/RT-PCR (Symptomatic ONLY)2020-01-03 21:57:00 Test Item Value Reference Range Interpretation Comments SARS-COV2/RT-PCR Negative Not Detected, (test code = Negative, See 95498-0) external report for linked test SARS-COV-2 [facility] PERFORMING LAB (test code = 92545-0) AYESHA (test code = Negative results do not AYESHA) preclude SARS-CoV-2 infection and should not be used as the sole basis for patient management decisions. Negative results must be combined with clinical observations, patient history, and epidemiological information. A false negative result may occur if a specimen is improperly collected, transported or handled. The limit of detection for this assay is 250 copies/mL. This SARS CoV-2 test is a rapid, real-time RT-PCR test intended for the qualitative detection of nucleic acid from SARS-CoV-2 in a nasopharyngeal swab specimen collected from individuals suspected of COVID-19 by their healthcare provider. This test has not been Food and Drug Administration (FDA) cleared or approved and has been authorized by FDA under an Emergency Use Authorization (EUA). This EUA will be effective until the declaration that circumstances exist justifying the authorization of the emergency use of in vitro diagnostic tests for detection and/or diagnosis of COVID-19 is terminated under Section 564(b)(2) of the Act or the EUA is revoked under Section 564(g) of the Act. Fact Sheet for Healthcare Providers:https://www.[employer]/Documents/Xper t%20Xpress%20SARS%20CoV- 2/Fact%20Sheets/302-3802 %88IGEM-GPT-2%20HEALTHCA RE%20PROVIDERS%20FACT%20 SHEET.pdf Fact Sheet for Healthcare Patients:https://www.[employer]/Documents/Xpert %20Xpress%20SARS%20CoV-2 /Fact%20Sheets/302-3801% 72LXNG-OAS-3%20PATIENT%2 0FACT%20SHEET.pdf Performing Laboratory:[facility], [place] [address] [place], [place] [address]ARS-COV2/RT-PCR ([facility])2020-01-03 21:57:00 Test Item Value Reference Range Interpretation Comments SARS-COV2/RT-PCR (test code Negative Not Detected, Negative, = 8892795) See external report for linked test SARS-COV-2 PERFORMING LAB [facility] (test code = 7303922) Negative results do not preclude SARS-CoV-2 infection and should not be used as the sole basis for patient management decisions. Negative results must be combined with clinical observations, patient history, and epidemiological information. A false negative result may occur if a specimen is improperly collected, transported or handled.The limit of detection for this assay is 250 copies/mL.This SARS CoV-2 test is a rapid, real-time RT-PCR test intended for the qualitative detection of nucleic acid from SARS-CoV-2 in a nasopharyngeal swab specimen collected from individuals suspected of COVID-19 by their healthcare provider.This test has not been Food and Drug Administration (FDA) cleared or approved and has been authorized by FDA under an Emergency Use Authorization (EUA). This EUA will be effective until the declaration that circumstances exist justifying the authorization of the emergency use of in vitro diagnostic tests for detection and/or diagnosis of COVID-19 is terminated under Section 564(b)(2) of the Act or the EUA is revoked under Section 564(g) of the Act.Fact Sheet for Healthcare Pro viders:https://www.[employer]/Documents/Xpert%20Xpress%20SARS%20CoV-2/Fact%20Sh eets/302-3802%73VTBI-CJA-4%20HEALTHCARE%20PROVIDERS%20FACT%20SHEET.pdfFact Sheet for Healthcare Patients:https://www.[employer]Minds/Documents/Xpert%20Xpress%20SARS%20CoV-2/Fact%20Sheets/302-3801%20SARS-COV -2%20PATIENT%20FACT%20SHEET.pdfPerforming Laboratory:[facility], [place] [address]AN/[id number] 20:57:00 Test Item Value Reference Interpretation Comments Range Protime (test code = 12.8 See_Comment [Autom ated 5902-2) message] The system which generated this result transmitted reference range : 11.9 - 14.2 seconds. The reference range was not used to interpret this result as normal/abnormal . INR (test code = 0.99 See_Comment [Automated 6301-6) message] The system which generated this result transmitted reference range : <=5.90. The reference range was not used to interpret this result as normal/abnormal . AYESHA (test code = Effective 09/23/2018: AYESHA) PT Reference Range ChangeNew: 11.9-14.2 Previous: 11.7-14.7 RECOMMENDED COUMADIN/WARFARIN INR THERAPY RANGESSTANDARD DOSE: 2.0-3.0 Includes: PROPHYLAXIS for venous thrombosis, systemic embolization; TREATMENT for venous thrombosis and/or pulmonary embolus.HIGH RISK: Target INR is 2.5-3.5 for patients wiht mechanical heart valves. Lab Interpretation Normal (test code = 06315-4) [id number]00 Test Item Value Reference Interpretation Comments Range Protime (test code = 12.8 See_Comment [Autom ated 5902-2) message] The system which generated this result transmitted reference range : 11.9 - 14.2 seconds. The reference range was not used to interpret this result as normal/abnormal . INR (test code = 0.99 See_Comment [Automated 6301-6) message] The system which generated this result transmitted reference range : <=5.90. The reference range was not used to interpret this result as normal/abnormal . AYESHA (test code = Effective 09/23/2018: AYESHA) PT Reference Range ChangeNew: 11.9-14.2 Previous: 11.7-14.7 RECOMMENDED COUMADIN/WARFARIN INR THERAPY RANGESSTANDARD DOSE: 2.0-3.0 Includes: PROPHYLAXIS for venous thrombosis, systemic embolization; TREATMENT for venous thrombosis and/or pulmonary embolus.HIGH RISK: Target INR is 2.5-3.5 for patients wiht mechanical heart valves. Lab Interpretation Normal (test code = 09493-6) [facility][id number] 20:57:00 Test Item Value Reference Interpretation Comments Range Protime (test code = 12.8 See_Comment [Autom ated 5902-2) message] The system which generated this result transmitted reference range : 11.9 - 14.2 seconds. The reference range was not used to interpret this result as normal/abnormal . INR (test code = 0.99 See_Comment [Automated 6301-6) message] The system which generated this result transmitted reference range : <=5.90. The reference range was not used to interpret this result as normal/abnormal . AYESHA (test code = Effective 09/23/2018: AYESHA) PT Reference Range ChangeNew: 11.9-14.2 Previous: 11.7-14.7 RECOMMENDED COUMADIN/WARFARIN INR THERAPY RANGESSTANDARD DOSE: 2.0-3.0 Includes: PROPHYLAXIS for venous thrombosis, systemic embolization; TREATMENT for venous thrombosis and/or pulmonary embolus.HIGH RISK: Target INR is 2.5-3.5 for patients wiht mechanical heart valves. Lab Interpretation Normal (test code = 43586-8) [facility][id number] 20:57:00 Test Item Value Reference Interpretation Comments Range Protime (test code = 12.8 See_Comment [Autom ated 5902-2) message] The system which generated this result transmitted reference range : 11.9 - 14.2 seconds. The reference range was not used to interpret this result as normal/abnormal . INR (test code = 0.99 See_Comment [Automated 2901-6) message] The system which generated this result transmitted reference range : <=5.90. The reference range was not used to interpret this result as normal/abnormal . AYESHA (test code = Effective 09/23/2018: AYESHA) PT Reference Range ChangeNew: 11.9-14.2 Previous: 11.7-14.7 RECOMMENDED COUMADIN/WARFARIN INR THERAPY RANGESSTANDARD DOSE: 2.0-3.0 Includes: PROPHYLAXIS for venous thrombosis, systemic embolization; TREATMENT for venous thrombosis and/or pulmonary embolus.HIGH RISK: Target INR is 2.5-3.5 for patients wiht mechanical heart valves. Lab Interpretation Normal (test code = 13030-3) [facility][id number] 20:57:00 Test Item Value Reference Interpretation Comments Range Protime (test code = 12.8 See_Comment [Autom ated 5902-2) message] The system which generated this result transmitted reference range : 11.9 - 14.2 seconds. The reference range was not used to interpret this result as normal/abnormal . INR (test code = 0.99 See_Comment [Automated 3521-6) message] The system which generated this result transmitted reference range : <=5.90. The reference range was not used to interpret this result as normal/abnormal . AYESHA (test code = Effective 09/23/2018: AYESHA) PT Reference Range ChangeNew: 11.9-14.2 Previous: 11.7-14.7 RECOMMENDED COUMADIN/WARFARIN INR THERAPY RANGESSTANDARD DOSE: 2.0-3.0 Includes: PROPHYLAXIS for venous thrombosis, systemic embolization; TREATMENT for venous thrombosis and/or pulmonary embolus.HIGH RISK: Target INR is 2.5-3.5 for patients wiht mechanical heart valves. Lab Interpretation Normal (test code = 99987-8) [facility]/[id number] 20:57:00 Test Item Value Reference Range Interpretation Comments PROTIME (BEAKER) (test code = 12.8 seconds 11.9-14.2 759) INR (BEAKER) (test code = 370) 0.99 <=5.90 Effective 09/23/2018: PT Reference Range ChangeNew: 11.9-14.2 Previous: 11.7- 14.7RECOMMENDED COUMADIN/WARFARIN INR THERAPY RANGESSTANDARD DOSE: 2.0-3.0 Includes: PROPHYLAXIS for venous thrombosis, systemic embolization; TREATMENT for venous thrombosis and/or pulmonary embolus.HIGH RISK: Target INR is2.5-3.5 for patients wiht mechanical heart valves.BASIC METABOLIC [id number] 20:35:00 Test Item Value Reference Range Interpretation Comments SODIUM (BEAKER) 137 meq/L 136-145 (test code = 381) POTASSIUM (BEAKER) 5.8 meq/L 3.5-5.1 H Specimen markedly (test code = 379) hemolyzed CHLORIDE (BEAKER) 104 meq/L 98-107 (test code = 382) CO2 (BEAKER) (test 24 meq/L 22-29 code = 355) BLOOD UREA NITROGEN 19 mg/dL 7-21 (BEAKER) (test code = 354) CREATININE (BEAKER) 0.81 mg/dL 0.57-1.25 Specimen markedly (test code = 358) hemolyzed GLUCOSE RANDOM 94 mg/dL 70-105 (BEAKER) (test code = 652) CALCIUM (BEAKER) 9.1 mg/dL 8.4-10.2 (test code = 697) EGFR (BEAKER) (test 74 mL/min/1.73 ESTIMA GILL GFR IS code = 1092) sq m NOT ACCURATE CREATININE CLEARANCE IN PREDICTING GLOMERULAR FILTRATION RATE . ESTIMATED GFR I S NOT APPLICABLE FOR DIALYSIS PATIEN TS. [employer] Message Broker Developer ID - DBLactic acid, [id number] 20:31:00 Test Item Value Reference Range Interpretation Comments Lactate, Venous (test 1.60 mmol/L 0.5-2.2 Specim en code = 2872) markedly hemolyzed AYESHA (test code = AYESHA) [employer] Message Broker Developer ID - DB Lab Interpretation Normal (test code = 13845-0) [facility], [id number] 20:31:00 Test Item Value Reference Range Interpretation Comments Lactate, Venous (test 1.60 mmol/L 0.5-2.2 Specim en code = 2872) markedly hemolyzed AYESHA (test code = AYESHA) [employer] Message Broker Developer ID - DB Lab Interpretation Normal (test code = 51180-2) [facility], [id number] 20:31:00 Test Item Value Reference Range Interpretation Comments Lactate, Venous (test 1.60 mmol/L 0.5-2.2 Specim en code = 2872) markedly hemolyzed AYESHA (test code = AYESHA) [employer] Message Broker Developer ID - DB Lab Interpretation Normal (test code = 42359-4) [facility], [id number] 20:31:00 Test Item Value Reference Range Interpretation Comments Lactate, Venous (test 1.60 mmol/L 0.5-2.2 Specim en code = 2872) markedly hemolyzed AYESHA (test code = AYESHA) [employer] Message Broker Developer ID - DB Lab Interpretation Normal (test code = 31913-6) [facility], [id number] 20:31:00 Test Item Value Reference Range Interpretation Comments Lactate, Venous (test 1.60 mmol/L 0.5-2.2 Specim en code = 2872) markedly hemolyzed AYESHA (test code = AYESHA) [employer] Message Broker Developer ID - DB Lab Interpretation Normal (test code = 98665-2) [facility]LACTIC ACID, [id number] 20:31:00 Test Item Value Reference Range Interpretation Comments LACTATE BLOOD VENOUS 1.60 mmol/L 0.50-2.20 Specime n markedly (2) (BEAKER) (test hemolyzed code = 2872) [employer] Message Broker Developer ID - DBCBC W/PLT COUNT & AUTO [id number] 20:23:00 Test Item Value Reference Range Interpretation Comments WHITE BLOOD CELL COUNT (BEAKER) 11.2 K/ L 3.5-10.5 H (test code = 775) RED BLOOD CELL COUNT (BEAKER) 4.35 M/ L 3.93-5.22 (test code = 761) HEMOGLOBIN (BEAKER) (test code = 14.2 GM/DL 11.2-15.7 410) HEMATOCRIT (BEAKER) (test code = 42.6 % 34.1-44.9 411) MEAN CORPUSCULAR VOLUME (BEAKER) 97.9 fL 79.4-94.8 H (test code = 753) MEAN CORPUSCULAR HEMOGLOBIN 32.6 pg 25.6-32.2 H (BEAKER) (test code = 751) MEAN CORPUSCULAR HEMOGLOBIN CONC 33.3 GM/DL 32.2-35.5 (BEAKER) (test code = 752) RED CELL DISTRIBUTION WIDTH 12.1 % 11.7-14.4 (BEAKER) (test code = 412) PLATELET COUNT (BEAKER) (test 222 K/CU MM 150-450 code = 756) MEAN PLATELET VOLUME (BEAKER) 10.5 fL 9.4-12.3 (test code = 754) NUCLEATED RED BLOOD CELLS 0 /100 WBC 0-0 (BEAKER) (test code = 413) NEUTROPHILS RELATIVE PERCENT 73 % (BEAKER) (test code = 429) LYMPHOCYTES RELATIVE PERCENT 20 % (BEAKER) (test code = 430) MONOCYTES RELATIVE PERCENT 6 % (BEAKER) (test code = 431) EOSINOPHILS RELATIVE PERCENT 0 % (BEAKER) (test code = 432) BASOPHILS RELATIVE PERCENT 0 % (BEAKER) (test code = 437) NEUTROPHILS ABSOLUTE COUNT 8.13 K/ L 1.56-6.13 H (BEAKER) (test code = 670) LYMPHOCYTES ABSOLUTE COUNT 2.28 K/ L 1.18-3.74 (BEAKER) (test code = 414) MONOCYTES ABSOLUTE COUNT (BEAKER) 0.69 K/ L 0.24-0.36 H (test code = 415) EOSINOPHILS ABSOLUTE COUNT 0.00 K/ L 0.04-0.36 L (BEAKER) (test code = 416) BASOPHILS ABSOLUTE COUNT (BEAKER) 0.03 K/ L 0.01-0.08 (test code = 417) IMMATURE GRANULOCYTES-RELATIVE 0 % 0-1 PERCENT (BEAKER) (test code = 2801) RAD, CHEST, 1 VIEW, NON [id number] 20:13:00Reason for exam:->feverShould this be performed at the bedside?->YesFINAL REPORT History: Fever. Comparison: 07/16/2017 Findings: A single view of the chest is submitted. The cardiomediastinal contours are unremarkable. There is no focal consolidation, pneumothorax, large pleural effusion or evidence of overt pulmonary edema. There is no acute bony abnormality. Impression: No acute abnormality. Signed: Simran Sullivan MDReport Verified Date/Time: 01/03/2020 20:13:04 XR chest 1 view portable / [id number] 20:13:00Interface, External Ris In - 01/03/2020 8:15 PM CDTFINAL REPORT History: Fever. Comparison: 07/16/2017 Findings: A single view of the chest is submitted. The cardiomediastinal contours are unremarkable. There is no focal consolidation, pneumothorax, large pleural effusion or evidence of overt pulmonary edema. There is no acute bony abnormality. Impression: No acute abnormality. Signed: Simran Sullivan Verified Date/Time: 01/03/2020 20:13:04 [facility] / [id number] 20:13:00Interface, External Ris In - 01/03/2020 8:15 PM CDTFINAL REPORT History: Fever. Comparison: 07/16/2017 Findings: A single view of the chest is submitted. The cardiomediastinal contours are unremarkable. There is no focal consolidation, pneumothorax, large pleural effusion or evidence of overt pulmonary edema. There is no acute bony abnormality. Impression: No acute abnormality. Signed: Simran Sullivan Verified Date/Time: 01/03/2020 20:13:04 [facility] / bedside 2020-01-03 20:13:00Interface, External Ris In - 01/03/2020 8:15 PM CDTFINAL REPORT History: Fever. Comparison: 07/16/2017 Findings: A single view of the chest is submitted. The cardiomediastinal contours are unremarkable. There is no focal consolidation, pneumothorax, large pleural effusion or evidence of overt pulmonary edema. There is no acute bony abnormality. Impression: No acute abnormality. Signed: Simran Sullivan Verified Date/Time: 01/03/2020 20:13:04 [facility] portable / [id number] 20:13:00Interface, External Ris In - 01/03/2020 8:15 PM CDTFINAL REPORT History: Fever. Comparison: 07/16/2017 Findings: A single view of the chest is submitted. The cardiomediastinal contours are unremarkable. There is no focal consolidation, pneumothorax, large pleural effusion or evidence of overt pulmonary edema. There is no acute bony abnormality. Impression: No acute abnormality. Signed: Simran Sullivan MDReport Verified Date/Time: 01/03/2020 20:13:04 [facility] / [id number] 20:13:00 Interface, External Ris In - 01/03/2020 8:15 PM CDTFINAL REPORT History: Fever. Comparison: 07/16/2017 Findings: A single view of the chest is submitted. The cardiomediastinal contours are unremarkable. There is no focal consolidation, pneumothorax, large pleural effusion or evidence of overt pulmonary edema. There is no acute bony abnormality. Impression: No acute abnormality. Signed: Simran Sullivan MDReport Verified Date/Time: 01/03/2020 20:13:04 [facility] HospitalCHEM [id number] 22:39:00 Test Item Value Reference Range Interpretation Comments eGFR (test code = eGFR) 92 [facility]2019-05-02 22:39:00 Test Item Value Reference Range Interpretation Comments Calcium Lvl (test code = Calcium Lvl) 8.9 8.5-10.5 [facility]2019-05-02 22:39:00 Test Item Value Reference Range Interpretation Comments Creatinine Lvl (test code = Creatinine 0.75 0.50-1.40 Lvl) [facility]2019-05-02 22:39:00 Test Item Value Reference Range Interpretation Comments Sodium Lvl (test code = Sodium Lvl) 142 135-145 [facility]2019-05-02 22:39:00 Test Item Value Reference Range Interpretation Comments BUN (test code = BUN) 15 7-22 [facility]2019-05-02 22:39:00 Test Item Value Reference Range Interpretation Comments Chloride Lvl (test code = Chloride Lvl) 109 95-109 [facility]2019-05-02 22:39:00 Test Item Value Reference Range Interpretation Comments CO2 (test code = CO2) 25 24-32 [facility]2019-05-02 22:39:00 Test Item Value Reference Range Interpretation Comments Glucose Lvl (test code = Glucose Lvl) 154 70-99 [facility]2019-05-02 22:39:00 Test Item Value Reference Range Interpretation Comments Potassium Lvl (test code = Potassium 4.0 3.5-5.1 Lvl) [facility]2019-05-02 22:39:00 Test Item Value Reference Range Interpretation Comments AGAP (test code = AGAP) 12.0 10.0-20.0 [facility] CenterInchygwPFSYVSVOOS1302-21-11 22:39:00 Test Item Value Reference Range Interpretation Comments Hgb (test code = Hgb) 13.0 12.0-16.0 [facility] CenterTxzohibWMSVRANDER4336-17-45 22:39:00 Test Item Value Reference Range Interpretation Comments Hct (test code = Hct) 39.2 36.0-48.0 [facility] C[id number] 22:39:00 Test Item Value Reference Range Interpretation Comments MCV (test code = MCV) 98.3 80.0-98.0 [facility] CenterAymobxzARPOSWFUBS4370-90-99 22:39:00 Test Item Value Reference Range Interpretation Comments MCH (test code = MCH) 32.7 pg 27.0-31.0 [facility] CenterZnqszglHWFVGXIZSK3067-25-24 22:39:00 Test Item Value Reference Range Interpretation Comments MCHC (test code = MCHC) 33.2 32.0-36.0 [facility] CenterFhggobaKTVDZMQEFV3253-60-87 22:39:00 Test Item Value Reference Range Interpretation Comments RDW (test code = RDW) 13.2 11.5-14.5 [place] [id number] 22:39:00 Test Item Value Reference Range Interpretation Comments MPV (test code = MPV) 8.2 7.4-10.4 [facility] CenterHoqjmoeJXIAFBPKGE4788-72-02 22:39:00 Test Item Value Reference Range Interpretation Comments Platelet (test code = Platelet) 171 133-450 [facility] CenterRdwliilUMRWUEQZTF2324-64-71 22:39:00 Test Item Value Reference Range Interpretation Comments WBC (test code = WBC) 5.9 3.7-10.4 [place] [id number] 22:39:00 Test Item Value Reference Range Interpretation Comments RBC (test code = RBC) 3.98 4.20-5.40 [place] [id number] 22:39:00 Test Item Value Reference Range Interpretation Comments PTT (test code = PTT) 25.2 s 22.9-35.8 [facility] CenterIxmysguSYPFDXMHLL5060-72-66 22:39:00 Test Item Value Reference Range Interpretation Comments PT (test code = PT) 12.7 s 12.0-14.7 [place] [address]-05-02 22:39:00 Test Item Value Reference Range Interpretation Comments INR (test code = INR) 0.97 1 0.85-1.17 [facility] CenterRfrbzmiLDMANUEFDN8979-18-15 22:39:00 Test Item Value Reference Range Interpretation Comments Basophils (test code = 0.1 See_Comment [Aut omated message] The Basophils) system which ge nerated this result tra nsmitted reference range : <=1.0. The reference r abdifatah was not used to int erpret this result as normal/abnormal . [facility] CenterQetscxcBJLLMUKHJZ6592-65-95 22:39:00 Test Item Value Reference Range Interpretation Comments Monocytes # (test code 0.1 See_Comment [Aut omated message] The = Monocytes #) system which generated this result tra nsmitted reference range : <=0.8. The reference r abdifatah was not used to int erpret this result as normal/abnormal . [facility] CenterCkzlhqhOUBYHTTQMS2674-22-62 22:39:00 Test Item Value Reference Range Interpretation Comments Lymphocytes # (test code = Lymphocytes 0.7 1.0-5.5 #) [facility] CenterCglrxjtHNVHOIQCMS7395-65-47 22:39:00 Test Item Value Reference Range Interpretation Comments Neutrophils # (test code = Neutrophils 5.1 1.5-8.1 #) [facility] CenterJkoajsfRLJAZSLXHO5567-97-21 22:39:00 Test Item Value Reference Range Interpretation Comments Eosinophils (test code = 0.1 See_Comment [A utomated message] The Eosinophils) system which ge nerated this result tra nsmitted reference range : <=4.0. The reference r abdifatah was not used to int erpret this result as normal/abnormal . [facility]SrnokfjNXPUAFAHMT7056-30-67 22:39:00 Test Item Value Reference Range Interpretation Comments Lymphocytes (test code = Lymphocytes) 12.2 20.0-40.0 [facility]kxystdKUAHSAPEOD6040-05-69 22:39:00 Test Item Value Reference Range Interpretation Comments Monocytes (test code = Monocytes) 1.9 2.0-12.0 [facility]hamTxdsschLPJVMHHKRP1648-04-83 22:39:00 Test Item Value Reference Range Interpretation Comments Segs (test code = Segs) 85.7 45.0-75.0 [facility] [employer] [id number] 16:02:00 Test Item Value Reference Range Interpretation Comments Antibody Scrn (test Negative (08/24/18 code = Antibody Scrn) 11:02 AM) [facility] [employer] [id number] 16:02:00 Test Item Value Reference Range Interpretation Comments ABO/Rh (test code = ABO/Rh) A POS [facility] [employer]2019-04-29 14:15:00 Test Item Value Reference Range Interpretation Comments eGFR (test code = eGFR) 102 [facility] [employer]2019-04-29 14:15:00 Test Item Value Reference Range Interpretation Comments BUN (test code = BUN) 23 7-22 [facility] [email or web address] [id number] 14:15:00 Test Item Value Reference Range Interpretation Comments Sodium Lvl (test code = Sodium Lvl) 147 135-145 [facility] [employer]2019-04-29 14:15:00 Test Item Value Reference Range Interpretation Comments Glucose Lvl (test code = Glucose Lvl) 90 70-99 [facility] [employer]2019-04-29 14:15:00 Test Item Value Reference Range Interpretation Comments Creatinine Lvl (test code = Creatinine 0.64 0.50-1.40 Lvl) [facility] [employer]2019-04-29 14:15:00 Test Item Value Reference Range Interpretation Comments Potassium Lvl (test code = Potassium 4.2 3.5-5.1 Lvl) [facility] [email or web address] [id number] 14:15:00 Test Item Value Reference Range Interpretation Comments Calcium Lvl (test code = Calcium Lvl) 9.4 8.5-10.5 [facility]2019-04-29 14:15:00 Test Item Value Reference Range Interpretation Comments Chloride Lvl (test code = Chloride Lvl) 110 95-109 [facility]2019-04-29 14:15:00 Test Item Value Reference Range Interpretation Comments CO2 (test code = CO2) 31 24-32 [facility]2019-04-29 14:15:00 Test Item Value Reference Range Interpretation Comments AGAP (test code = AGAP) 10.2 10.0-20.0 [id number] 14:15:00 Test Item Value Reference Range Interpretation Comments INR (test code = INR) 0.91 1 0.85-1.17 [facility] [id number] 14:15:00 Test Item Value Reference Range Interpretation Comments PT (test code = PT) 12.1 s 12.0-14.7 [facility] C[id number] 14:15:00 Test Item Value Reference Range Interpretation Comments PTT (test code = PTT) 27.1 s 22.9-35.8 [facility] CenterBwifpqlOLEEWAYYIA2266-09-34 14:15:00 Test Item Value Reference Range Interpretation Comments MPV (test code = MPV) 8.7 7.4-10.4 [facility] CenterKnqmqorOHWURDRXLM5733-11-67 14:15:00 Test Item Value Reference Range Interpretation Comments MCV (test code = MCV) 98.7 80.0-98.0 [facility] [id number] 14:15:00 Test Item Value Reference Range Interpretation Comments Hct (test code = Hct) 44.7 36.0-48.0 [facility] [id number] 14:15:00 Test Item Value Reference Range Interpretation Comments RBC (test code = RBC) 4.52 4.20-5.40 [facility] CenterDtubmfnRNRBSHVHFA5837-72-27 14:15:00 Test Item Value Reference Range Interpretation Comments Platelet (test code = Platelet) 191 133-450 [facility] CenterFqncbefLPGYENCEOC6456-13-91 14:15:00 Test Item Value Reference Range Interpretation Comments RDW (test code = RDW) 13.7 11.5-14.5 [facility] [id number] 14:15:00 Test Item Value Reference Range Interpretation Comments Hgb (test code = Hgb) 15.0 12.0-16.0 [facility] CenterWfjncdyDXVBPZWIHF8439-02-40 14:15:00 Test Item Value Reference Range Interpretation Comments MCHC (test code = MCHC) 33.6 32.0-36.0 [facility] CenterRudurynMHOSNTJEVG8012-97-18 14:15:00 Test Item Value Reference Range Interpretation Comments MCH (test code = MCH) 33.2 pg 27.0-31.0 [facility] CenterOdecmkfEVEWGLDJLU9058-45-89 14:15:00 Test Item Value Reference Range Interpretation Comments WBC (test code = WBC) 6.3 3.7-10.4 [facility] [id number] 14:15:00 Test Item Value Reference Range Interpretation Comments Eosinophils # (test code 0.1 See_Comment [A utomated message] The = Eosinophils #) system whic h generated this result tra nsmitted reference range : <=0.5. The reference r abdifatah was not used to int erpret this result as normal/abnormal . [facility] [id number] 14:15:00 Test Item Value Reference Range Interpretation Comments Monocytes # (test code 0.6 See_Comment [Aut omated message] The = Monocytes #) system which generated this result tra nsmitted reference range : <=0.8. The reference r abdifatah was not used to int erpret this result as normal/abnormal . [facility] CenterGeszlaqUVGEUTTSEZ7221-41-61 14:15:00 Test Item Value Reference Range Interpretation Comments Basophils (test code = 0.3 See_Comment [Aut omated message] The Basophils) system which ge nerated this result tra nsmitted reference range : <=1.0. The reference r abdifatah was not used to int erpret this result as normal/abnormal . [facility] CenterVapovnlMXNGZKKYCM9386-62-96 14:15:00 Test Item Value Reference Range Interpretation Comments Lymphocytes # (test code = Lymphocytes 1.9 1.0-5.5 #) [facility] [id number] 14:15:00 Test Item Value Reference Range Interpretation Comments Neutrophils # (test code = Neutrophils 3.6 1.5-8.1 #) [facility] Cent[id number] 14:15:00 Test Item Value Reference Range Interpretation Comments Lymphocytes (test code = Lymphocytes) 30.2 20.0-40.0 [facility] CenterUawihptXDVXVSZAJE2501-68-24 14:15:00 Test Item Value Reference Range Interpretation Comments Eosinophils (test code = 1.5 See_Comment [A utomated message] The Eosinophils) system which ge nerated this result tra nsmitted reference range : <=4.0. The reference r abdifatah was not used to int erpret this result as normal/abnormal . [facility] [id number] 14:15:00 Test Item Value Reference Range Interpretation Comments Segs (test code = Segs) 57.9 45.0-75.0 [facility] CenterBdmbiisXMETKNIYWU2704-74-27 14:15:00 Test Item Value Reference Range Interpretation Comments Monocytes (test code = Monocytes) 10.1 2.0-12.0 [facility]2018-03-26 10:39:00 Test Item Value Reference Interpretation Comments Range CULTURE (BEAKER) (test ESCHERICHIA COLI A > 100,000 col/mL code = 1095) Escherichia col i Amikacin (test code = S 1) Ampicillin + Sulbactam R (test code = 6) Aztreonam (test code = S 32) Cefepime (test code = S 51) Cefoxitin (test code = S 68) Ceftazidime (test code S = 27) Ceftriaxone (test code S = 52) Ertapenem (test code = S 38) Gentamicin (test code S = 18) Levofloxacin (test S code = 22) Meropenem (test code = S 34) Nitrofurantoin (test S code = 23) Piperacillin + S Tazobactam (test code = 29) Tetracycline (test R code = 2) Tobramycin (test code S = 25) Trimethoprim + S Sulfamethoxazole (test code = 47) CULTURE (BEAKER) (test ENTEROCOCCUS A >100, 000 col/mL code = 1095) SPECIES Enterococcus species Ampicillin (test code S = 26) Linezolid (test code = S 40) Nitrofurantoin (test S code = 23) Tetracycline (test R code = 2) Vancomycin (test code S = 13) >100,000 col/mL skin floraURINALYSIS W/ [id number] 09:01:00 Test Item Value Reference Range Interpretation [...] 1574) SOURCE(BEAKER) (test code = Urine, Voided 0985) URINE [id number] 05:37:00 Test Item Value Reference Range Interpretation Comments CULTURE (BEAKER) (test code = See comment 1095) <10,000 col/mL Gram Negative Rods>100,000 col/mL skin floraRAD, CHEST, 1 VIEW, NON [id number] 22:36:00Reason for exam:->Evaluate for infectionShould this be performed at the bedside?->YesFINAL REPORT INDICATION: Evaluate for infection COMPARISON: None TECHNIQUE: Si ngle frontal view of the chest. FINDINGS: Lungs and pleura: Clear lungs. No effusion.Heart and mediastinum: Normal heart size. Unremarkable mediastinal contours.Osseous structures: No acute abnormality.Other: None. IMPRESSION: No acute intrathoracic abnormality. Signed: JR [facility]land [facility] Verified Date/Time: 07/16/2017 22:36:35 Reading Location: [facility] B1 C013Y CT Body Reading Room MR, MRA, BRAIN, WITHOUT [id number] 21:33:00Reason for exam:->StrokeFINAL REPORT MRA head and neck Comparison: None Reason for exam: StrokeDiscussion: 2 D and 3-D urel-vs-ldsahm MRA of the head and neck was [...] Negative MRA neck and head. Signed: Sidney Cardoso Verified Date/Time: 07/16/2017 21:33:30 MR, MRA, NECK, WITHOUT IV [id number] 21:33:00Reason for exam:->StrokeFINAL REPORT MRA head and neck Comparison: None Reason for exam: StrokeDiscussion: 2 D and 3-D syub-eq-antszm MRA of the head and neck was [...] Negative MRA neck and head. 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 Signed: Sidney Cardoso MDReport Verified Date/Time: 07/16/2017 21:23:01 URINALYSIS W/ [id number] 19:13:00 Test Item Value Reference Range Interpretation [...] 516) SOURCE(BEAKER) (test code = Urine, Voided 9728) HEMOGLOBIN [id number] 14:29:00 Test Item Value Reference Range Interpretation Comments HEMOGLOBIN A1C (BEAKER) (test code = 5.4 % 4.3-6.1 368) VALPROIC ACID LEVEL, [id number] 12:47:00 Test Item Value Reference Range Interpretation [...] High 160-189 Very High >=190 FastingBASIC METABOLIC [id number] 02:44:00 Test Item Value Reference Range Interpretation [...] 697) EGFR (BEAKER) (test 84 mL/min/1.73 ESTIMA GILL GFR IS code = 1092) sq m NOT ACCURATE CREATININE CLEARANCE IN PREDICTING GLOMERULAR FILTRATION RATE . ESTIMATED GFR I S NOT APPLICABLE FOR DIALYSIS PATIEN TS. CBC W/PLT COUNT & AUTO [id number] 02:30:00 Test Item Value Reference Range Interpretation [...] PERCENT (BEAKER) (test code = 2801) SEDIMENTATION [id number] 22:54:00 Test Item Value Reference Range Interpretation Comments SEDIMENTATION RATE, ERYTHROCYTE 9 mm/HR 0-30 (BEAKER) (test code = 766) LIPID [id number] 21:50:00 Test Item Value Reference Range Interpretation [...] High 160-189 Very High >=190VITAMIN B12 AND [id number] 20:18:00 Test Item Value Reference Range Interpretation Comments VITAMIN B12 (BEAKER) (test code = 580 pg/mL 213-816 774) FOLATE (BEAKER) (test code = 362) 11.5 ng/mL >=7.0 TSH/FREE T4 IF [id number] 20:17:00 Test Item Value Reference Range Interpretation Comments THYROID STIMULATING HORMONE 1.88 uIU/mL 0.35-4.94 (OSIRIS) (test code = 772)
--- NOTE | 2021-09-09 21:09 | RAD REPORT ---
EXAM DESCRIPTION: RAD - Foot Right 3 View - 09/09/2021 8:48 pm CLINICAL HISTORY: Right foot pain status post injury FINDINGS: No fracture or dislocation is seen The bones are osteoporotic
--- NOTE | 2021-09-09 21:22 | ER ---
Nurse's Notes [facility] Name: Deborah Garcia Age: 56 yrs Sex: Female : 1965 Arrival Date: 09/09/2021 Time: 19:44 Bed 4 Private MD: Diagnosis: Pain in right foot Presentation: 09/09 19:44 Chief complaint: EMS states: pt fell when transferring from wheelchair to recliner. lg3 landed in sitting position ontop of right foot. complaints of right foot and ankle pain. Coronavirus screen: Client denies travel out of the [place] in the last 14 days. At this time, the client does not indicate any symptoms associated with coronavirus-19. Ebola Screen: No symptoms or risks identified at this time. Initial Sepsis Screen: Does the patient meet any 2 criteria? No. Patient's initial sepsis screen is negative. Does the patient have a suspected source of infection? No. Patient's initial sepsis screen is negative. Risk Assessment: Do you want to hurt yourself or someone else? Patient reports no desire to harm self or others. Onset of symptoms was September 09, 2021. 19:44 Method Of Arrival: EMS: [facility] lg3 19:44 Acuity: JULIO 3 lg3 Triage Assessment: 19:47 General: Appears in no apparent distress. comfortable, Behavior is calm, cooperative. lg3 Pain: Complains of pain in left foot and ankle Pain currently is 8 out of 10 on a pain scale. EENT: No deficits noted. No signs and/or symptoms were reported regarding the EENT system. Neuro: Arreaga Agitation-Sedation Scale (RASS): 0 - Alert and Calm Level of Consciousness is awake, alert, obeys commands, Oriented to person, place, time, situation, Speech with expressive aphasia noted. Cardiovascular: No deficits noted. Denies chest pain, shortness of breath. Respiratory: No deficits noted. Airway is patent Trachea midline Respiratory effort is even, unlabored, Respiratory pattern is regular, symmetrical. GI: No deficits noted. No signs and/or symptoms were reported involving the gastrointestinal system. Abdomen is flat, non-distended. : No deficits noted. No signs and/or symptoms were reported regarding the genitourinary system. Derm: Skin is intact, is fragile, is thin, Skin is dry, Skin is pink, warm \T\ dry. skin graphs noted to scalp and bilateral thighs. Musculoskeletal: Reports weakness in right side since 2018. Historical: - Home Meds: 19:47 Ritalin 20 mg Oral tab 1 tab 2 times per day [Active]; clobazam 5 mg oral tab twice a lg3 day [Active]; metoprolol tartrate 25 mg Oral tab 1 tab 2 times per day [Active]; methylphenidate HCl 20 mg Oral tab 1 tab 2 times per day [Active]; gabapentin 100 mg oral cap [Active]; - PMHx: 19:47 Aphasia; BRAIN TUMOR; Colitis; Hypertension; R sided deficits; lg3 - Immunization history:: Adult Immunizations up to date, Client reports receiving the 2nd dose of the Covid vaccine. - Social history:: Smoking status: Patient denies any tobacco usage or history of. Patient uses alcohol, but reports only rare drinking. Screenin:06 Abuse screen: Denies threats or abuse. Denies injuries from another. Nutritional lg3 screening: No deficits noted. Tuberculosis screening: No symptoms or risk factors identified. Fall Risk Fall in past 12 months (25 points). Secondary diagnosis (15 points) impaired mobility, Gait- Impaired (20 pts.). Mental Status- Oriented to own ability (0 pts). Total Wheeler Fall Scale indicates High Risk Score (45 or more points). Side Rails Up X 2 Frequent Obs/Assessments Occuring Family Present and informed to notify staff if the need to leave the bedside. Assessment: 20:15 General: see triage assessment . lg3 21:08 Reassessment: Patient appears in no apparent distress at this time. No changes from lg3 previously documented assessment. Patient and/or family updated on plan of care and expected duration. Pain level reassessed. Patient is alert, oriented x 3, equal unlabored respirations, skin warm/dry/pink. 22:05 Reassessment: Patient appears in no apparent distress at this time. No changes from lg3 previously documented assessment. Patient and/or family updated on plan of care and expected duration. Pain level reassessed. Patient is alert, oriented x 3, equal unlabored respirations, skin warm/dry/pink. Patient states feeling better. Vital Signs: 19:44 BP 128 / 72; Pulse 77; Resp 17 S; Temp 97.9(O); Pulse Ox 100% on R/A; Weight 63.5 kg lg3 (R); Height 5 ft. 4 in. (162.56 cm) (R); Pain 8/10; 21:08 BP 126 / 65; Pulse 73; Resp 17 S; Pulse Ox 98% on R/A; lg3 22:20 BP 129 / 67; Pulse 72; Resp 16; Pulse Ox 99% on R/A; ll3 19:44 Body Mass Index 24.03 (63.50 kg, 162.56 cm) lg3 ED Course: 19:44 Patient arrived in ED. lg3 19:44 Karely Thompson, RN is Primary Nurse. lg3 19:46 Marcelo Palomo PA is PHCP. cp 19:46 Dick Alejandre MD is Attending Physician. cp 19:47 Triage completed. lg3 19:47 Arm band placed on right wrist. lg3 20:50 XRAY Foot RIGHT 3 View In Process Unspecified. EDMS 22:06 Patient has correct armband on for positive identification. Bed in low position. Call lg3 light in reach. Side rails up X2. Client placed on continuous cardiac and pulse oximetry monitoring. NIBP monitoring applied. Door closed. Noise minimized. Warm blanket given. Pillow given. Family accompanied patient. 22:19 No provider procedures requiring assistance completed. Patient did not have IV access ll3 during this emergency room visit. Administered Medications: 20:09 Drug: HYDROcodone-acetaminophen 5 mg-325 mg 1 tabs Route: PO; lg3 20:10 Follow up: Response: No adverse reaction lg3 Medication: 22:20 VIS not applicable for this client. ll3 Outcome: 21:21 Discharge ordered by MD. cp 22:19 Discharged to home via ambulance. ll3 22:19 Condition: stable 22:19 Discharge instructions given to patient, EMS, Instructed on discharge instructions, follow up and referral plans. medication usage, Demonstrated understanding of instructions, follow-up care, medications, Prescriptions given X 1. 22:20 Patient left the ED. ll3 Signatures: Dispatcher [employer] EDNY Marcelo Palomo PA PA cp Karely Thompson, RN RN lg3 Shameka Foy RN RN ll3 Corrections: (The following items were deleted from the chart) 19:52 19:47 Home Meds: divalproex 250 mg Oral Tb24; bid; lg3 lg3 19:52 19:47 Home Meds: lisinopril-hydrochlorothiazide 20-12.5 mg Oral tab 1 tab once daily; lg3 lg3 19:47 Home Meds: Onfi 5 mg Oral tab 2 times per day; lg3 lg3
--- NOTE | 2021-09-09 21:22 | EDPHYS ---
Physician Documentation [facility] Name: Deborah Garcia Age: 56 yrs Sex: Female : 1965 Arrival Date: 09/09/2021 Time: 19:44 Bed 4 Private MD: ED Physician Dick Alejandre HPI: 09/09 20:30 This 56 yrs old Female presents to ER via EMS with complaints of Right Foot Pain. cp 20:30 The patient presents with an injury, pain, that is acute. The complaints affect the cp right foot. 20:30 Context: Patient reports losing her balance and falling onto right foot while cp attempting to get into chair. 20:30 Associated signs and symptoms: The patient has no apparent associated signs or symptoms.cp Historical: - Home Meds: 19:47 Ritalin 20 mg Oral tab 1 tab 2 times per day [Active]; clobazam 5 mg oral tab twice a lg3 day [Active]; metoprolol tartrate 25 mg Oral tab 1 tab 2 times per day [Active]; methylphenidate HCl 20 mg Oral tab 1 tab 2 times per day [Active]; gabapentin 100 mg oral cap [Active]; - PMHx: 19:47 Aphasia; BRAIN TUMOR; Colitis; Hypertension; R sided deficits; lg3 - Immunization history:: Adult Immunizations up to date, Client reports receiving the 2nd dose of the Covid vaccine. - Social history:: Smoking status: Patient denies any tobacco usage or history of. Patient uses alcohol, but reports only rare drinking. ROS: 20:35 MS/extremity: Positive for pain, swelling, tenderness, of the right foot. cp 20:35 Constitutional: Negative for body aches, chills, fever. cp 20:35 Neck: Negative for pain with movement, pain at rest, stiffness. 20:35 Cardiovascular: Negative for chest pain, palpitations. 20:35 Respiratory: Negative for cough, shortness of breath, wheezing. 20:35 Abdomen/GI: Negative for abdominal pain, nausea, vomiting, and diarrhea. 20:35 Back: Negative for pain at rest, pain with movement. 20:35 All other systems are negative. Exam: 20:40 Constitutional: The patient appears in no acute distress, alert, awake, non-toxic, well cp developed, well nourished. 20:40 Head/Face: Normocephalic, atraumatic. cp 20:40 Neck: ROM/movement: is normal, is supple, without pain, no range of motions limitations. 20:40 Chest/axilla: Inspection: normal, Palpation: is normal, no crepitus, no tenderness. 20:40 Cardiovascular: Rate: normal. 20:40 Respiratory: the patient does not display signs of respiratory distress, Respirations: normal. 20:40 Abdomen/GI: Inspection: abdomen appears normal, Palpation: abdomen is soft and non-tender, in all quadrants. 20:40 Back: pain, is absent, ROM is normal. 20:40 Musculoskeletal/extremity: Extremities: grossly normal except: noted in the dorsum of right foot: pain, swelling, tenderness, Pulses: noted to be 2+ in the right dorsalis pedis artery, the right foot Sensation intact. overlying skin warm, dry, intact. Vital Signs: 19:44 BP 128 / 72; Pulse 77; Resp 17 S; Temp 97.9(O); Pulse Ox 100% on R/A; Weight 63.5 kg lg3 (R); Height 5 ft. 4 in. (162.56 cm) (R); Pain 8/10; 21:08 BP 126 / 65; Pulse 73; Resp 17 S; Pulse Ox 98% on R/A; lg3 22:20 BP 129 / 67; Pulse 72; Resp 16; Pulse Ox 99% on R/A; ll3 19:44 Body Mass Index 24.03 (63.50 kg, 162.56 cm) lg3 MDM: 19:55 Patient medically screened. cp 21:00 Differential diagnosis: fracture, sprain, contusion. cp 21:20 Data reviewed: vital signs, nurses notes, radiologic studies, plain films. cp 21:20 Test interpretation: by ED physician or midlevel provider: plain radiologic studies. 09/09 20:03 Order name: XRAY Foot RIGHT 3 View; Complete Time: 21:15 cp 09/09 21:15 Interpretation: Report reviewed. 09/09 21:16 Order name: Post-op shoe; Complete Time: 22:18 cp Administered Medications: 20:09 Drug: HYDROcodone-acetaminophen 5 mg-325 mg 1 tabs Route: PO; lg3 20:10 Follow up: Response: No adverse reaction lg3 Disposition: 09/10 05:39 Co-signature as Attending Physician, Dick Alejandre MD. [email or web address] Disposition Summary: 09/09/21 21:21 Discharge Ordered Location: Home cp Problem: new cp Symptoms: have improved cp Condition: Stable cp Diagnosis - Pain in right foot cp Followup: cp - With: Private Physician - When: 2 - 3 days - Reason: Worsening of condition Discharge Instructions: - Discharge Summary Sheet cp - Foot Pain cp Forms: - Medication Reconciliation Form cp - Thank You Letter cp - Antibiotic Education cp - Prescription Opioid Use cp Prescriptions: - Tramadol 50 mg Oral Tablet - take 1 tablet by ORAL route every 8 hours as needed; 12 tablet; Refills: 0, cp Product Selection Permitted Signatures: Dispatcher [employer] EDMS Marcelo Palomo PA PA cp Karely Thompson RN RN lg3 Dick Alejandre MD MD [email or web address] Corrections: (The following items were deleted from the chart) 09/09 19:52 19:47 Home Meds: divalproex 250 mg Oral Tb24; bid; lg3 lg3 19:52 19:47 Home Meds: lisinopril-hydrochlorothiazide 20-12.5 mg Oral tab 1 tab once daily; lg3 lg3 19:52 19:47 Home Meds: Onfi 5 mg Oral tab 2 times per day; lg3 lg3
[2021-09-09 22:26] VITALS: TEMP 97.9
[2021-09-09 22:28] VITALS: BP 129/67; O2SAT 99
== END 2021-09-09 22:20 | disposition home or self-care (01) ==
LOC: ER 19:38
DX: M79.671 Pain in right foot (principal); I10 Essential (primary) hypertension
CPT/HCPCS: 99284

== ENCOUNTER 2022-04-03 17:54 | Emergency (ER) | payer OTHER ==
[2022-04-03] MEDS ORDERED: MORPHINE 4 MG/ML SYR ONE (18:18)
[2022-04-03] MEDS ORDERED: ONDANSETRON 4 MG/2 ML VIAL ONE (18:18)
--- OUTSIDE RECORDS SUMMARY | 2022-04-03 19:08 | XMS REPORT | Continuity of Care Document ---
:1965 Author Organization [facility] t Address [address] [place] [address] Care Team Providers Name Role Phone LINDA WARNER JR Primary Care Physician Unavailable JASON SMITH Attending Clinician Unavailable KARON CHILDERS Attending Clinician Unavailable Sergey Watts MD Attending Clinician SERGEY WATTS Attending Clinician Unavailable SERGEY WATTS Attending Clinician Unavailable Cyrus Logan Attending Clinician JASON SMITH Attending Clinician Unavailable Jason Smith Attending Clinician Doctor Unassigned, [place] Attending Clinician Unavailable Tarsha Do MA Attending Clinician Unavailable Steve Nava Attending Clinician STEVE NAVA Attending Clinician Unavailable Lashell Dangelo RN Attending Clinician Unavailable Carolynn Vasquez RN Attending Clinician Unavailable SETH ADAMS Attending Clinician Unavailable Nurys Wood MD Attending Clinician Bobbi Everett MD Attending Clinician Seth Adams DO Attending Clinician Seferino Mcgraw Attending Clinician SEFERINO MCGRAW Attending Clinician Unavailable Isela Gray Attending Clinician ISELA GRAY Attending Clinician Unavailable Brayden Moreno Attending Clinician [facility] Attending Clinician Unavailable Dick Castro Attending Clinician DICK CASTRO Attending Clinician Unavailable Dick Castro MD Attending Clinician Meli LUTZ, Provider Not In Attending Clinician Unavailable Velasquez Gentile MD Attending Clinician Sky Capellan Attending Clinician VISIT, [facility] Attending Clinician Unavailable Yasmin Capellan MD Attending Clinician GERALDO DELGADO Attending Clinician Unavailable Geraldo Delgado Attending Clinician Rebeca Mcadams Attending Clinician Cirilo Killian MD, I Attending Clinician CIRILO KILLIAN Attending Clinician Unavailable KARON CHILDERS Attending Clinician Unavailable Karon Childers Attending Clinician Ross Coronado MD Attending Clinician Tommy Anderson DO Attending Clinician Maureen Steinberg MD Attending Clinician Dannie Quiroga MD, Alexandra Agudelo Attending Clinician [phone] Vini Ledezma MD Attending Clinician [phone] HILDA DELGADO Attending Clinician Unavailable Hilda Mohan Attending Clinician [phone], [facility] Attending Clinician Unavailable Cirilo Killian Attending Clinician Karen Boogie Attending Clinician Yosef Elizondo Attending Clinician ALICE KC Attending Clinician Unavailable JASON SMITH Admitting Clinician Unavailable Jason Smith Admitting Clinician JASON SMITH Admitting Clinician Unavailable TEQWIMTHIERNOHSETH Admitting Clinician Unavailable Teqwimuah , Seth Admitting Clinician GERALDO DELGADO Admitting Clinician Unavailable CapellanSky owusu Timo [place] Admitting Clinician KARON CHILDERS Admitting Clinician Unavailable Karon Childers Admitting Clinician VINI LEDEZMA Admitting Clinician Unavailable Yosef Elizondo Admitting Clinician ALICE KC Admitting Clinician Unavailable Payers Payer Name Policy Type Policy Number Effective Date Expiration Date S ource MEDICARE PART A [id number] 1995 AND B 00:00:00 Problems Condition Condition Condition Status Onset Resolution Last Treating Co mments Source Name Details Category Date Date Treatment Clinician Date OPEN SCLAP OPEN Diagnosis Active 2021-12-03 Memoria WOUND SCLAP 11-22 07:20:00 l WOUND 00:00: Duy Active 00 11/22/2021 [facility] S01.00XD S01.00XD Diagnosis Active 2021-11-20 Memoria S06.9X0A S06.9X0A - 21:56:00 l S01.90XA S01.90XA 00:00: Scottie n Active 00 10/01/2021 [facility] OTHER OTHER Diagnosis Active 2021-08-30 Mem oria INJURY OF INJURY OF 08-12 13:43:00 l UNSPECIFIE UNSPECIFIE 00:00: Daniel Oliver BODY D BODY 00 REGION, REGION, Active 08/12/2021 [facility] SCALP SCALP Diagnosis Active 2021-08-07 Mem oria WOUND WOUND 07-02 09:26:00 l Active 00:00: Duy 07/02/2021 00 [facility] Pneumonia Pneumonia Disease Active Uni vers due to due to 04-29 ity of COVID-19 COVID-19 00:00: [place] virus virus 00 [facility] Branch Respirator Respirator Disease Active U nivers y failure y failure - ity of 00:00: [address] Seizure Seizure Disease Active Univers 04-29 ity of 00:00: [address] HYPOXIA HYPOXIA Diagnosis Active 2020-042021-03-22 Memoria Active 05-17 21:42:00 l 03/17/2021 00:00: Scottie jacob [address] OPEN WOUND OPEN Diagnosis Active 2020-042021-04-12 Memoria TO LEG AND WOUND TO 04-28 13:11:00 l SCALP LEG AND 06:00: Duy SCALP 00 Active 02/26/2021 [facility] OTHER OTHER Diagnosis Active 2021-01-17 Mem oria ACQUIRED ACQUIRED 12-06 13:25:00 l DEFORMITY DEFORMITY 00:00: Jodi sesay OF HEAD OF HEAD 00 Active 12/06/2020 [facility] Skull Skull Disease Active [facility] defect defect 02 Health 00:00: 00 ACUTE ACUTE Diagnosis Active 2020-09-27 Mem oria ONSET ONSET 09-15 21:48:00 l SEPSIS SEPSIS 00:00: Duy Active 00 09/15/2020 [facility] FEVER FEVER Diagnosis Active 2020-09-15 Mem oria Active 09-15 16:51:00 l 09/15/2020 00:00: Scottie jacob [address] GAMMA GAMMA Diagnosis Active 2020-09-15 Mem oria KNIFE KNIFE 09-08 07:48:00 l FOLLOW UP FOLLOW UP 00:00: Jodi sesay Active 09/08/2020 [facility] SENT BY SENT BY Diagnosis Active 2020-08-25 [place] HOANG,BLOOD ,BLOOD 08-25 18:27:00 l CULTURES CULTURES 00:00: Scottie jacob Active 00 08/25/2020 [facility] BRAIN BRAIN Diagnosis Active 2020-09-04 Mem oria INFECTION INFECTION 08-25 21:50:00 l Active 00:00: Duy 08/25/2020 [facility] DEHISCENCE DEHISCENC Diagnosis Active 2020-08-29 Memoria WOUND E WOUND 08-15 21:58:00 l Active 00:00: 08/15/2020 [facility] HEAD HEAD Diagnosis Active 2020-08-15 Mem oria INJURY INJURY 08-15 21:45:00 l Active 00:00: 08/15/2020 [facility] Acute Acute Disease Active [facility] stroke stroke [facility] Medical [place] Right Right Disease Active [facility] s[facility] sided [facility] weakness weakness 00:00: Medica l 00 [place] C71.9 - C71.9 - Diagnosis Active 2019-06-12 Memoria MALIGNANT MALIGNANT 12-31 10:34:00 l NEOPLASM NEOPLASM 00:01: Scottie jacob OF BRAIN, OF BRAIN, 00 U U Active 12/31/2018 BUSTER Arreaga FOLLOW GK FOLLOW Diagnosis Active 2018-12-30 Memoria UP UP Active 09-15 15:07:00 l 09/15/2018 00:00: Scottie jacob [address] C71.9 C71.9 Diagnosis Active 2018-08-28 Mem oria Active 08-11 15:31:00 l 08/11/2018 00:00: Scottie jacob [address] Seizure Seizure Disease Active [facility] Acute Acute Disease Active [facility] cystitis cystitis -26 [facility] 00:00: Medical [place] Weakness Weakness Disease [facility] 00 [place] Physical Physical Disease Active [facility] deconditio deconditio 3-20 [facility] kes daksha daksha 00:00: Medical 00 [place] Dysarthria Dysarthria Disease Active [facility] Medical 00 [place] Hypertensi Hypertensi Disease Active [facility] Center CVA CVA Disease Active 2018-[address] (cerebral (cerebral 3-20 [facility] vascular vascular 00:00: Medica l accident) accident) 00 Cent er Aphasia Aphasia Disease Active 2017-[address] [facility] Cerebrovas Cerebrova Problem Resolve 2021-12-03 Memoria cular scular d 22:47:10 l accident accident Scottie n (disorder) (disorder) Resolved Problem 12/03/2021 [facility] Osteomyeli Osteomyel Problem Resolve 2021-12-03 Memoria tis itis d 22:47:10 l (disorder) (disorder) He rmann Resolved Problem 12/03/2021 Cranium [facility] Glioma Glioma Problem Active 2021-12-03 Dannie pat (disorder) (disorder) 22:47:10 l Active Duy Problem 12/03/2021 [facility] Hematoma Hematoma Problem Active 2021-12-03 Memoria of of 22:47:10 l subdural subdural Scottie n space of space of neuraxis neuraxis (disorder) (disorder) Active Problem 12/03/2021 [facility] Osteomyeli Osteomyel Problem Active 2021-12-03 Memoria tis of itis of 22:47:10 l cranium cranium Duy (disorder) (disorder) Active Problem 12/03/2021 [facility] Open wound Open Problem Active 2021-12-03 M emoria of scalp wound of 22:47:10 l (disorder) scalp Scottie n (disorder) Active Problem 12/03/2021 [facility] UNSPECIFIE Diagnosis Active 2021-08-07 Memoria D OPEN UNSPECIFIE 09:26:00 l WOUND OF D OPEN [place] SCALP, WOUND OF INITIAL SCALP, INITIAL Active [facility] 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 22:47:10 l of of Duy meninges meninges (disorder) (disorder) Resolved Problem 12/03/2021 [facility],Misc her Neuro,[facility], [place] 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 pat tumor of tumor of 23:04:36 l brain brain [place] (disorder) (disorder) Active Problem 09/04/2018 He Neuro,[facility], BUSTER Arreaga Bacterial Problem Active 2021-12-03 Me moria infectious Bacterial 22:47:10 l disease infectious Brianna nn (disorder) disease (disorder) Active Problem 12/03/2021 [facility] Past Past Problem Active 2021-12-03 Memor ia history of history of 22:47:10 l clinical clinical Scottie n finding finding (context-d (context-d ependent ependent category) category) Active Problem 12/03/2021 [facility] History of History Problem Active 2021-12-03 Memoria craniotomy of 22:47:10 l (situation craniotomy He radhaann ) (situation ) Active Problem 12/03/2021 [facility] Malignant Malignant Problem Active 2021-12-03 Memoria glioma of glioma of 22:47:10 l central central [place] nervous nervous system system (disorder) (disorder) Active Problem 12/03/2021 [facility] Postmenopa Postmenop Problem Active 2021-12-03 Memoria usal state ausal 22:47:10 l (finding) state Duy (finding) Active Problem 12/03/2021 [facility] ENCNTR FOR ENCNTR Diagnosis Active 2020-09-15 Memoria GENERAL FOR 07:48:00 l ADULT GENERAL [place] MEDICAL ADULT EXAM W/ MEDICAL EXAM W/ Active [facility] OPEN WOUND OPEN Diagnosis Active 2021-02-28 Memoria WOUND 17:01:00 l Active [facility] DISRUPTION DISRUPTIO Diagnosis Active 2020-08-29 Memoria OF N OF 21:58:00 l EXTERNAL EXTERNAL Scottie n OPERATION OPERATION (SURGIC (SURGIC Active [facility] SEPSIS, SEPSIS, Diagnosis Active 2020-09-27 Memoria UNSPECIFIE UNSPECIFIE 21:48:00 l D ORGANISM D ORGANISM He rmann Active [facility] ENCEPHALIT ENCEPHALI Diagnosis Active 2020-09-04 Memoria IS AND TIS AND 21:50:00 l ENCEPHALOM ENCEPHALOM He popeye YELITIS, YELITIS, UNSP UNSP Active [facility] History of Past Illness Condition Condition Condition Status Onset Resolution Last Treating Co mments Source Name Details Category Date Date Treatment Clinician Date Unspecifie Unspecifi Problem 2021-08-27 2021-08-27 Memoria d open ed open 08-23 08:52:27 08:52:27 l wound of wound of 19:56: Scottie jacob scalp, scalp, 00 initial initial encounter encounter 08/23/2021 [facility] Hypoxemia Hypoxemia Problem 2020-042021-03-19 2021-03-19 Memoria 03/17/202105-17 22:25:58 22:25:58 l 03/19/2021 12:51: Scottie jacob 00 [place] Other Other Problem 2021-01-25 2021-01-25 M emoria malaise malaise 01-19 23:30:47 23:30:47 l 01/19/2021 19:12: Scottie jacob 01/25/2021 00 [facility] Unsteadine Problem 2021-01-25 2021-01-25 Memoria ss on feet Unsteadine 01-19 23:30:47 23:30:47 l ss on feet 19:12: Scottie jacob 01/19/2021 00 01/25/2021 [facility] Cognitive Problem 2021-01-25 2021-01-25 Memoria communicat Cognitive 01-19 23:30:47 23:30:47 l ion communicat 19:11: Scottie jacob deficit ion 00 deficit 01/19/2021 01/25/2021 [facility] Allergies, Adverse Reactions, Alerts Allergy Allergy Status [...] 09-27 Health adverse 00:00: reaction 00 s cefepime cefepime Active Sandraori a kristina Gordillo codeine codeine Active Sandraoria kristina Gordillo NO KNOWN Allergy Active [facility] Social History Social Habit Start Date Stop Date Quantity Comments Source History of Current smoker [facility] tobacco use Exposure to 2022-03-24 2022-04-03 Not sure [facility] SARS-CoV-2 00:00:00 13:43:00 (event) Social History 2021-11-28 2021-11-28 [facility] Kenia [place] 17:18:23 17:18:23 Alcohol intake 2020-01-03 2020-01-[address] [facility] 00:00:00 00:00:00 non-drinker of Medical Ce nter alcohol (finding) Tobacco use and 2017-07-15 2017-07-[address] [facility] kes exposure 00:00:00 00:00:00 [facility] Sex Assigned At [address] [facility] 00:00:00 00:00:00 [facility] Smoking Status Start Date Stop Date Source Tobacco smoking consumption unknown [facility] Never smoked tobacco [facility] Ex-smoker 2020-12-06 00:00:00 2020-12-06 00:00:00 [facility] Medications Ordered Filled Start Stop Current Ordering Indication Dosage Frequency Signature Comments Components Source Medication Medication Date Date Medication? Clinician (SIG) Name Name methylpheni 2021-04 Yes [id number] 20mg Take 1 Univers date HCl 20 2-05 tablet by ity of mg tablet 00:00: mouth in [place] the Medical morning Branch and 1 tablet in the evening. cloBAZam 10 2021-04 Yes [id number] TAKE ONE Univers mg tablet 1-03 TABLET BY ity o f 00:00: MOUTH TWICE A Medical DAY Branch cloBAZam 10 2021-04 Yes [id number] TAKE ONE Univers mg tablet 1-03 TABLET BY ity o f 00:00: MOUTH TWICE A Medical DAY Branch methylpheni 2021-04 Yes [id number] 20mg Take 1 Univers date HCl 20 1-02 tablet by ity of mg tablet 00:00: mouth [place] 00 the Medical morning Branch and 1 tablet in the evening. methylpheni 2021-04 Yes [id number] 20mg Take 1 Univers date HCl 20 1-02 tablet by ity of mg tablet 00:00[place] 00 the [facility] [place] [facility] and 1 tablet in the evening. methylpheni 2021-04- No [id number] 20mg Take 1 Univers date HCl 20 04-29 1205 tablet by it y of mg tablet 00:00: 00:00 mouth in [place] 00 :00 the Medical morning Branch and 1 tablet in the evening. gabapentin 2021-04 Yes 400mg Q.[id number] Take 400 [facility] (Neurontin) 0-14 [id number] mg by H ealth 400 MG 10:14: 3D mouth 3 capsule 00 (three) times a day. mupirocin 2021-04 Yes Q.[id number] Apply U T (Bactroban) 0-14 [id number] topically Health 2 % 10:14: 3D 3 (three) ointment 00 times a day. docusate 2021-04 Yes 100mg Q.5D Take 100 UT sodium 0-14 mg by Health (Colace) 10:14: mouth 2 100 MG 00 (two) capsule times a day. cloBAZam 2021-04 Yes 10mg Q.5D Take 10 mg UT (Onfi) 2.5 0-14 by mouth Healt h mg/mL 10:14: twice a suspension 00 day. valproic 2021-04 Yes Take by UT acid 0-14 mouth. Health (Depakene) 10:14: 250 MG/5ML 00 oral liquid polyethylen 2021-04 Yes 17g QD Take 17 g U T e glycol 0-14 by mouth 1 Healt h (Glycolax) 10:14: (one) time 17 GM/SCOOP 00 each day. powder senna 2021-04 Yes 1{tbl} QD Take 1 UT (Senokot) 0-14 tablet by Healt h 8.6 MG 10:14: mouth 1 tablet 00 (one) time each day. gabapentin 2021-04 Yes 400mg Q.[id number] Take 400 UT (Neurontin) 0-14 [id number] mg by H ealth 400 MG 10:14: 3D mouth 3 capsule 00 (three) times a day. mupirocin 2021-04 Yes [id number] Apply U T (Bactroban) 0-14 [id number] topically Health 2 % 10:14: 3D 3 (three) ointment 00 times a day. docusate 2021-04 Yes 100mg Q.5D Take 100 UT sodium 0-14 mg by Health (Colace) 10:14: mouth 2 100 MG 00 (two) capsule times a day. cloBAZam 2021-04 Yes 10mg Q.5D Take 10 mg UT (Onfi) 2.5 0-14 by mouth Healt h mg/mL 10:14: twice a suspension 00 day. valproic 2021-04 Yes Take by UT acid 0-14 mouth. Health (Depakene) 10:14: 250 MG/5ML 00 oral liquid polyethylen 2021-04 Yes 17g QD Take 17 g U T e glycol 0-14 by mouth 1 Healt h (Glycolax) 10:14: (one) time 17 GM/SCOOP 00 each day. powder senna 2021-04 Yes 1{tbl} QD Take 1 UT (Senokot) 0-14 tablet by Healt h 8.6 MG 10:14: mouth 1 tablet 00 (one) time each day. gabapentin 2021-04 Yes 400mg Q.[id number] Take 400 UT (Neurontin) 0-14 [id number] mg by H ealth 400 MG 10:14: 3D mouth 3 capsule 00 (three) times a day. mupirocin 2021-04 Yes [id number] Apply U T (Bactroban) 0-14 [id number] topically Health 2 % 10:14: 3D 3 (three) ointment 00 times a day. docusate 2021-04 Yes 100mg Q.5D Take 100 UT sodium 0-14 mg by Health (Colace) 10:14: mouth 2 100 MG 00 (two) capsule times a day. cloBAZam 2021-04 Yes 10mg Q.5D Take 10 mg UT (Onfi) 2.5 0-14 by mouth Healt h mg/mL 10:14: twice a suspension 00 day. valproic 2021-04 Yes Take by UT acid 0-14 mouth. Health (Depakene) 10:14: 250 MG/5ML 00 oral liquid polyethylen 2021-04 Yes 17g QD Take 17 g U T e glycol 0-14 by mouth 1 Healt h (Glycolax) 10:14: (one) time 17 GM/SCOOP 00 each day. powder senna 2021-04 Yes 1{tbl} QD Take 1 UT (Senokot) 0-14 tablet by Healt h 8.6 MG 10:14: mouth 1 tablet 00 (one) time each day. methylpheni 2021-0 Yes [id number] 20mg Take 1 Univers date HCl 20 9-27 tablet by ity of mg tablet 00:[place]: [place] the Medical morning Branch and 1 tablet in the evening. methylpheni 2021-0 Yes [id number] 20mg Take 1 Univers date HCl 20 9-27 tablet by ity of mg tablet 00:00: [place] 00 the Medical morning Branch and 1 tablet in the evening. methylpheni 2021-0 Yes [id number] 20mg Take 1 Univers date HCl 20 9-27 tablet by ity of mg tablet 00:00: [place] 00 the Medical morning Branch and 1 tablet in the evening. methylpheni 0 2021- No [id number] 20mg Take 1 Univers date HCl 20 9-27 11-02 tablet by it y of mg tablet 00:00: 00:00 mouth in [place] 00 :00 the Medical morning Branch and 1 tablet in the evening. methylpheni 2021-0 Yes [id number] 20mg Take 1 Univers date HCl 20 8-26 109 tablet by ity of mg tablet 00:00: [place] 00 the Medical morning Branch and 1 tablet in the evening. methylpheni 2021-0 2021- No [id number] 20mg Take 1 Univers date HCl 20 8-26 09-27 tablet by it y of mg tablet 00:00: 00:00 mouth in [place] 00 :00 the Medical morning Branch and 1 tablet in the evening. traMADol 2021-2021- No [id number] 50mg Q6H Take 1 UT (Ultram) 50 8-17 08-23 tablet (50 H ealth MG tablet 00:00: 04:59 mg total) 00 :00 by mouth every 6 (six) hours if needed for severe pain for up to 5 days. traMADol 0 2021- No [id number] 50mg Q6H Take 1 UT (Ultram) 50 8-10 08-16 tablet (50 H ealth MG tablet 00:00: 04:59 mg total) 00 :00 by mouth every 6 (six) hours if needed for severe pain for up to 5 days. aspirin No Notes: Do Memor ia 8-06 not crush l 14:00: or chew. (Same As: Ecotrin) aspirin No Notes: Do Memor ia 8-06 not crush l 14:00: or chew. (Same As: Ecotrin) traMADol 2021- No [id number] 50mg Q6H Take 1 U T (Ultram) 50 12-01 08-10 tablet (50 H ealth MG tablet 00:00: 00:00 mg total) 00 :00 by mouth every 6 (six) hours if needed for severe pain for up to 5 days. docusate No Notes: Memoria 8-05 (Same as: l 22:00: Colace) (Do Not Crush) CeleBREX No Notes: Memoria 8-05 NSAID. l 22:00: Please Duy 00 check indication . Not for seizure. (Same As: CeleBREX) clobazam No Notes: Memoria 8-05 (Same as: l 22:00: Onfi) reserved for Neurology use only methylpheni No Notes: Dannie pat date 8-05 (Same as l 22:00: :Ritalin) metoprolol No Notes: Memor ia tartrate 8-05 (Same as: l 22:00: Lopressor) docusate No Notes: Memoria 8-05 (Same as: l 22:00: Colace) (Do Not Crush) CeleBREX No Notes: Memoria 8-05 NSAID. l 22:00: Please [place] 00 check indication . Not for seizure. (Same As: CeleBREX) clobazam No Notes: Memoria 8-05 (Same as: l 22:00: Onfi) reserved for Neurology use only methylpheni No Notes: Dannie pat date 8-05 (Same as l 22:00: :Ritalin) metoprolol No Notes: Memor ia tartrate 8-05 (Same as: l 22:00: Lopressor) ceFAZolin No Notes: Memori a 8-05 (Same as l 21:00: Ancef) gabapentin No Notes: Memor ia 300 mg oral 05 (Same as: l capsule 21:00: Neurontin) ceFAZolin No Notes: Memori a 8-05 (Same as l 21:00: Ancef) gabapentin No Notes: Memor ia 300 mg oral 05 (Same as: l capsule 21:00: Neurontin) ceFAZolin No Notes: Memori a 8-05 (Same as l 19:00: Ancef) Keflex No 500 mg, 1 Memori a 8- cap, l 19:00: Route: PO, Drug form: CAP, ABXQ6H, Dosing Weight 59.6, kg, Start date: 11/30/21 14:00:00 CDT, Duration: 10 day, Stop date: 12/10/21 8:00:00 CDT, 0 ceFAZolin No Notes: Memori a -05 (Same as l 19:00: Ancef) Keflex No 500 mg, 1 Memori a - cap, l 19:00: Route: PO, Drug form: CAP, ABXQ6H, Dosing Weight 59.6, kg, Start date: 11/30/21 14:00:00 CDT, Duration: 10 day, Stop date: 12/10/21 8:00:00 CDT, 0 Lactated No 1,000 mL, Dannie pat Ringers 11-30 Rate: 125 l Injection 18:48: ml/hr, Scottie n IV 1,000 mL 00 Infuse over: 8 hr, Route: IV, Dosing Weight 59.6 kg, Total Volume: 1,000, Start date: 11/30/21 13:48:00 CDT, Duration: 30 day, Stop date: 12/30/21 13:47:00 CDT, BSA: 1.65 m2, 0 acetaminoph No Notes: Max Memoria en 8-05 acetaminop l 18:48: hen = Duy 00 4000mg/day (4 gm/day). (Same as: Tylenol) ibuprofen No Notes: Memori a 11-30 (Same as: l 18:48: Motrin) [place] 00 "Do Not Crush" Give with food. [place] No Notes: Dannie pat oral tablet 11-30 (Same as: l 18:48: [place] Duy 00 325/5) Do not exceed 4gm/day of acetaminop hen. ondansetron No Notes: Dannie pat 11-30 (Same as: l 18:48: Zofran) Duy 00 MEDICATION WASTE Product Size: 4 mg Product Wasted: ___ mg Lactated No 1,000 mL, Dannie pat Ringers 11-30 Rate: 125 l Injection 18:48: ml/hr, Scottie n IV 1,000 mL 00 Infuse over: 8 hr, Route: IV, Dosing Weight 59.6 kg, Total Volume: 1,000, Start date: 11/30/21 13:48:00 CDT, Duration: 30 day, Stop date: 12/30/21 13:47:00 CDT, BSA: 1.65 m2, 0 acetaminoph No Notes: Max Memoria en 11-30 acetaminop l 18:48: hen = Duy 00 4000mg/day (4 gm/day). (Same as: Tylenol) ibuprofen No Notes: Memori a 11-30 (Same as: l 18:48: Motrin) [place] 00 "Do Not Crush" Give with food. [place] No Notes: Dannie pat oral tablet 11-30 (Same as: l 18:48: [place] Duy 00 325/5) Do not exceed 4gm/day of acetaminop hen. ondansetron No Notes: Dannie pat 11-30 (Same as: l 18:48: Zofran) [place] 00 MEDICATION WASTE Product Size: 4 mg Product Wasted: ___ mg ibuprofen Yes 600 mg = 1 Me moria 600 mg oral 11-30 tab, PO, l tablet 15:11: Q6H, PRN Duy 00 Pain or Fever, Take with food, X 10 day, # 40 tab, 0 Refill(s) ibuprofen Yes 600 mg = 1 Me moria 600 mg oral 805 tab, PO, l tablet 15:11: Q6H, PRN Duy 00 Pain or Fever, Take with food, X 10 day, # 40 tab, 0 Refill(s) acetaminoph Yes 500 mg = 1 Memoria en 500 mg 8-05 tab, PO, l oral 15:10: Q6H, PRN Duy tablet. 00 Pain/Fever , X 7 day, # 28 tab, 0 Refill(s) acetaminoph Yes 500 mg = 1 Memoria en 500 mg 8-05 tab, PO, l oral 15:10: Q6H, PRN [place] tablet. 00 Pain/Fever , X 7 day, # 28 tab, 0 Refill(s) sugammadex No Route: IV, M emoria (ANES) 11-30 Drug form: l 15:02: SOLN, Duy 00 ONCE, Stop date: 11/30/21 10:02:00 CDT sugammadex No Route: IV, M emoria (ANES) 11-30 Drug form: l 15:02: SOLN, Duy 00 ONCE, Stop date: 11/30/21 10:02:00 CDT ondansetron No Route: IV, Memoria (ANES) 11-30 Drug form: l 14:35: INJ, ONCE, Stop date: 11/30/21 9:35:00 CDT ketOROLAC 0 No IV, ONCE Dannie pat (ANES) 11-30 l 14:35: [place] 00 ondansetron No Route: IV, Memoria (ANES) 11-30 Drug form: l 14:35: INJ, ONCE, Stop date: 11/30/21 9:35:00 CDT ketOROLAC 0 No IV, ONCE Dannie pat (ANES) 11-30 l 14:35: Duy 00 Lactated No Route: IV, Mem oria Ringers 11-30 Total l Injection 14:20: Volume: Brianna nn IV (ANES) 00 500, Start 500 mL date: 11/30/21 9:20:00 CDT, Stop date: 11/30/21 10:20:00 CDT Lactated No Route: IV, Mem oria Ringers -05 Total l Injection 14:20: Volume: Brianna nn IV (ANES) 00 500, Start 500 mL date: 11/30/21 9:20:00 CDT, Stop date: 11/30/21 10:20:00 CDT acetaminoph No Route: IV, Memoria en (ANES) 11-30 Drug form: l 14:04: INJ, ONCE, Stop date: 11/30/21 9:04:00 CDT acetaminoph No Route: IV, Memoria en (ANES) 11-30 Drug form: l 14:04: INJ, ONCE, Stop date: 11/30/21 9:04:00 CDT dexamethaso No Route: IV, Memoria ne (ANES) 11-30 Drug form: l 13:59: INJ, ONCE, Stop date: 11/30/21 8:59:00 CDT dexamethaso 2021- No Route: IV, Memoria ne (ANES) 11-30 Drug form: l 13:59: INJ, ONCE, Stop date: 11/30/21 8:59:00 CDT phenylephri No Route: IV, Memoria ne (ANES) 11-30 Drug form: l 13:54: INJ, ONCE, Stop date: 11/30/21 8:54:00 CDT phenylephri 0 No Route: IV, Memoria ne (ANES) 11-30 Drug form: l 13:54: INJ, ONCE, Stop date: 11/30/21 8:54:00 CDT lidocaine 2021- No Route: IV, Me moria (ANES) 11-30 Drug form: l 13:39: INJ, ONCE, Stop date: 11/30/21 8:39:00 CDT propofol 2022-0 No Route: IV, Mem oria (ANES) 11-30 Drug form: l 13:39: INJ, ONCE, Stop date: 11/30/21 8:39:00 CDT rocuronium 0 No Route: IV, M emoria (ANES) 11-30 Drug form: l 13:39: INJ, ONCE, Stop date: 11/30/21 8:39:00 CDT fentaNYL 0 No Route: IV, Mem oria (ANES) 11-30 Drug form: l 13:39: INJ, ONCE, Stop date: 11/30/21 8:39:00 CDT ceFAZolin No Route: IV, Me moria (ANES) 11-30 Drug form: l 13:39: INJ, ONCE, Stop date: 11/30/21 8:39:00 CDT lidocaine No Route: IV, Me moria (ANES) 11-30 Drug form: l 13:39: INJ, ONCE, Stop date: 11/30/21 8:39:00 CDT propofol 0 No Route: IV, Mem oria (ANES) 11-30 Drug form: l 13:39: INJ, ONCE, Stop date: 11/30/21 8:39:00 CDT rocuronium 0 No Route: IV, M emoria (ANES) 11-30 Drug form: l 13:39: INJ, ONCE, Stop date: 11/30/21 8:39:00 CDT fentaNYL 0 No Route: IV, Mem oria (ANES) 11-30 Drug form: l 13:39: INJ, ONCE, Stop date: 11/30/21 8:39:00 CDT ceFAZolin 0 No Route: IV, Me moria (ANES) 11-30 Drug form: l 13:39: INJ, ONCE, Stop date: 11/30/21 8:39:00 CDT ANES No Notes: Memoria hydrALAZINE 11-30 (Same as: l 13:37: Apresoline ) Push over 5 minutes ANES No 10 mg, 2 Memoria labetalol 8-05 mL, Route: l 13:37: IVP, Drug form: INJ, Q5Min, Dosing Weight 59.6, kg, PRN Elevated BP, Start date: 11/30/21 8:37:00 CDT, Duration: 5 doses or times, Stop date: 12/01/21 0:00:00 CDT, 0 ANES No Notes: Max Memoria acetaminoph 8-05 acetaminop l en 13:37: hen 4000 mg/day (4 gm/day). (Same as: Tylenol Extra Strength) ANE No 600 mg, 1 Memoria ibuprofen 8-05 tab, l 13:37: Route: PO, Drug form: TAB, Q6H, Dosing Weight 59.6, kg, PRN Pain Score 1-3, Start date: 11/30/21 8:37:00 CDT, Duration: 1 day, Stop date: 12/01/21 8:36:00 CDT, 0 ANE No Notes: Memoria oxyCODONE 5 8-05 (Same as: l mg 13:37: Roxicodone ) release tablet ANE No Notes: Memoria HYDROmorpho 8-05 Same as: l ne 13:37: Dilaudid No Notes: Memoria flumazenil 8-05 (Same as: l 13:37: Romazicon) ANE No Notes: Memoria naloxone 8-05 Same as l 13:37: Narcan No Notes: Memoria ondansetron 8-05 (Same as: l 13:37: Zofran) MEDICATION WASTE Product Size: 4 mg Product Wasted: ___ mg ANES No Notes: Memoria dexamethaso 8-05 Concentrat l ne 13:37: ion: Duy 00 4mg/ml ANES No Notes: Memoria hydrALAZINE 8-05 (Same as: l 13:37: Apresoline ) Push over 5 minutes ANES No 10 mg, 2 Memoria labetalol 8-05 mL, Route: l 13:37: IVP, Drug form: INJ, Q5Min, Dosing Weight 59.6, kg, PRN Elevated BP, Start date: 11/30/21 8:37:00 CDT, Duration: 5 doses or times, Stop date: 12/01/21 0:00:00 CDT, 0 ANES No Notes: Max Memoria acetaminoph 8-05 acetaminop l en 13:37: hen 4000 Duy 00 mg/day (4 gm/day). (Same as: Tylenol Extra Strength) No 600 mg, 1 Memoria ibuprofen 8-05 tab, l 13:37: Route: PO, Duy 00 Drug form: TAB, Q6H, Dosing Weight 59.6, kg, PRN Pain Score 1-3, Start date: 11/30/21 8:37:00 CDT, Duration: 1 day, Stop date: 12/01/21 8:36:00 CDT, 0 ANES No Notes: Memoria oxyCODONE 5 8-05 (Same as: l mg 13:37: Roxicodone immediate ) release tablet S No Notes: Memoria HYDROmorpho 8-05 Same as: l ne 13:37: Dilaudid No Notes: Memoria flumazenil 8-05 (Same as: l 13:37: Romazicon) No Notes: Memoria naloxone 8-05 Same as l 13:37: Narcan No Notes: Memoria ondansetron 8-05 (Same as: l 13:37: Zofran) MEDICATION WASTE Product Size: 4 mg Product Wasted: ___ mg S No Notes: Memoria dexamethaso 8-05 Concentrat l ne 13:37: ion: [place] 00 4mg/ml midazolam No Route: IV, Me moria (ANES) 11-30 Drug form: l 13:29: SOLN, [place] 00 ONCE, Stop date: 11/30/21 8:29:00 CDT midazolam No Route: IV, Me moria (ANES) 8-05 Drug form: l 13:29: SOLN, [place] 00 ONCE, Stop date: 11/30/21 8:29:00 CDT Isolyte S No Route: IV, Me moria PH 7.4 8-05 Total l (ANES) 1000 12:50: Volume: Her [place] mL 00 1,000, Start date: 11/30/21 7:50:00 CDT, Stop date: 11/30/21 8:50:00 CDT Isolyte S No Route: IV, Me moria PH 7.4 8-05 Total l (ANES) 1000 12:50: Volume: Her [place] mL 00 1,000, Start date: 11/30/21 7:50:00 CDT, Stop date: 11/30/21 8:50:00 CDT tramadol 50 Yes 50 mg = 1 M emoria mg oral 7-20 tab, PO, l tablet 12:30: Q6H, PRN [place] 00 Pain Score 1-3, X 7 day, # 28 tab, 0 Refill(s), Pharmacy: [facility] [id number], 162.56, cm, 11/08/21 8:33:00 CDT, Height, 59.3, kg, 11/08/21 8:33:00 CDT, Weight tramadol 50 Yes 50 mg = 1 M emoria mg oral 7-20 tab, PO, l tablet 12:30: Q6H, PRN [place] 00 Pain Score 1-3, X 7 day, # 28 tab, 0 Refill(s), Pharmacy: [facility] [id number], 162.56, cm, 11/08/21 8:33:00 CDT, Height, 59.3, kg, 11/08/21 8:33:00 CDT, Weight MiraLax No Notes: Memoria 7-19 Dissolve l 14:00: in 8 oz of [place] 00 water or juice. (Same as: Miralax) senna No Notes: Memoria 7-19 (Same as: l 14:00: Senokot) Duy 00 MiraLax No Notes: Memoria 7-19 Dissolve l 14:00: in 8 oz of water or juice. (Same as: Miralax) senna No Notes: Memoria 7-19 (Same as: l 14:00: Senokot) methylpheni No Notes: Dannie pat date 7-16 (Same as l 18:00: :Ritalin) methylpheni No Notes: Dannie pat date 7-16 (Same as l 18:00: :Ritalin) Milk of No Notes: Memoria Magnesia 7-15 (Same as: l 18:12: Milk of Duy 00 Magnesia, MOM) Milk of No Notes: Memoria Magnesia 7-15 (Same as: l 18:12: Milk of [place], MOM) Zofran No Notes: Memoria 7-15 (Same as: l 18:11: Zofran) MEDICATION WASTE Product Size: 4 mg Product Wasted: ___ mg Zofran No Notes: Memoria 7-15 (Same as: l 18:11: Zofran) MEDICATION WASTE Product Size: 4 mg Product Wasted: ___ mg heparin No Notes: Memoria 7-15 porcine l 14:00: heparin aspirin No Notes: Do Memor ia 7-15 not crush l 14:00: or chew. (Same As: Ecotrin) clobazam No Notes: Memoria 7-15 (Same as: l 14:00: Onfi) reserved for Neurology use only gabapentin No Notes: Memor ia 100 mg oral 7-15 (Same as: l capsule 14:00: Neurontin) methylpheni No Notes: Dannie pat date 7-15 (Same as l 14:00: :Ritalin) metoprolol No Notes: Memor ia tartrate 7-15 (Same as: l 14:00: Lopressor) heparin No Notes: Memoria 7-15 porcine l 14:00: heparin aspirin No Notes: Do Memor ia 7-15 not crush l 14:00: or chew. (Same As: Ecotrin) clobazam No Notes: Memoria 7-15 (Same as: l 14:00: Onfi) reserved for Neurology use only gabapentin No Notes: Memor ia 100 mg oral -15 (Same as: l capsule 14:00: Neurontin) methylpheni No Notes: Dannie pat date 7-15 (Same as l 14:00: :Ritalin) metoprolol No Notes: Memor ia tartrate 7-15 (Same as: l 14:00: Lopressor) ondansetron No Route: IV, Memoria (ANES) 7-14 Drug form: l 23:51: INJ, ONCE, Stop date: 11/08/21 18:51:00 CDT ondansetron No Route: IV, Memoria (ANES) 7-14 Drug form: l 23:51: INJ, ONCE, Stop date: 11/08/21 18:51:00 CDT Lactated No Route: IV, Mem oria Ringers 7-14 Total l Injection 23:01: Volume: Brianna nn IV (ANES) 00 1,000, 1000 mL Start date: 11/08/21 18:01:00 CDT, Stop date: 11/08/21 19:01:00 CDT Lactated No Route: IV, Mem oria Ringers 7-14 Total l Injection 23:01: Volume: Brianna nn IV (ANES) 00 1,000, 1000 mL Start date: 11/08/21 18:01:00 CDT, Stop date: 11/08/21 19:01:00 CDT Lactated No 1,000 mL, Dannie pat Ringers IV 7-14 Rate: 125 l 1,000 mL 22:57: ml/hr, Infuse over: 8 hr, Route: IV, Dosing Weight 59.3 kg, Total Volume: 1,000, Start date: 11/08/21 17:57:00 CDT, Duration: 30 day, Stop date: 12/08/21 17:56:00 CDT, BSA: 1.65 m2, 0 Saline No Notes: Memoria Flush 0.9% 7-14 (Same as: l 22:57: BD Posiflush) Lactated No 1,000 mL, Dannie pat Ringers IV 7-14 Rate: 125 l 1,000 mL 22:57: ml/hr, [place] 00 Infuse over: 8 hr, Route: IV, Dosing Weight 59.3 kg, Total Volume: 1,000, Start date: 11/08/21 17:57:00 CDT, Duration: 30 day, Stop date: 12/08/21 17:56:00 CDT, BSA: 1.65 m2, 0 Saline No Notes: Memoria Flush 0.9% 7-14 (Same as: l 22:57: BD Duy 00 Posiflush) tramadol No Notes: Not Mem oria 7-14 to exceed l 22:56: 400mg/day. Duy 00 (Same As: Ultram) Dilaudid No Notes: Memoria 7-14 Same as l 22:56: Dilaudid tramadol No Notes: Not Mem oria 7-14 to exceed l 22:56: 400mg/day. (Same As: Ultram) Dilaudid No Notes: Memoria 7-14 Same as l 22:56: Dilaudid ANES No 5 mg, Memoria oxyCODONE 5 7-14 Route: PO, l mg 19:39: Drug form: [place] immediate 00 TAB, Q4H, release Dosing tablet Weight 59.3, kg, PRN Pain Score 4-6, Start date: 11/08/21 14:39:00 CDT, Duration: 30 day, Stop date: 12/08/21 14:38:00 CDT ANES No 5 mg, Memoria oxyCODONE 7-14 Route: NG, l 19:39: Drug form: [place] 00 LIQ, Q4H, Dosing Weight 59.3, kg, PRN Pain Score 4-6, Start date: 11/08/21 14:39:00 CDT, Duration: 30 day, Stop date: 12/08/21 14:38:00 CDT ANES 0 No 0.5 mg, Memoria HYDROmorpho - Route: l ne 19:39: IVP, [place] 00 Q15Min, Dosing Weight 59.3, kg, PRN Pain Score 7-10, Start date: 11/08/21 14:39:00 CDT, Duration: 4 doses or times, Stop date: Limited # of times ANES 0 No 25 Memoria fentaNYL 7-14 microgram, l 19:39: Route: [place] 00 IVP, Q5Min, Dosing Weight 59.3, kg, PRN Pain Score 7-10, Priority: Routine, Start date: 11/08/21 14:39:00 CDT, Duration: 2 doses or times, Stop date: Limited # of times ANES 0 No 0.2 mg, Memoria flumazenil 11-08 Route: l 19:39: IVP, PRN, Dosing Weight 59.3, kg, PRN Benzodiaze pine Reversal, Initial dose, Start date: 11/08/21 14:39:00 CDT, Duration: 30 day, Stop date: 12/08/21 14:38:00 CDT ANES 0 No 0.4 mg, Memoria naloxone - Route: l 19:39: IVP, Duy 00 Q2MIN, Dosing Weight 59.3, kg, PRN Narcotic Reversal, Start date: 11/08/21 14:39:00 CDT, Duration: 8 doses or times, Stop date: Limited # of times ANES 2021-0 No 4 mg, Memoria ondansetron 11-08 Route: l 19:39: IVP, ONCE, Dosing Weight 59.3, kg, PRN Nausea & Vomiting, Start date: 11/08/21 14:39:00 CDT ANES 0 No 6.25 mg, Memoria promethazin -14 Route: l e 19:39: IVPB, [place] 00 ONCE, Dosing Weight 59.3, kg, PRN Nausea & Vomiting, Start date: 11/08/21 14:39:00 CDT ANES 2021-0 No 5 mg, Memoria oxyCODONE 5 7-14 Route: PO, l mg 19:39: Drug form: [place] immediate 00 TAB, Q4H, release Dosing tablet Weight 59.3, kg, PRN Pain Score 4-6, Start date: 11/08/21 14:39:00 CDT, Duration: 30 day, Stop date: 12/08/21 14:38:00 CDT ANES 2021-0 No 5 mg, Memoria oxyCODONE 7-14 Route: NG, l 19:39: Drug form: Duy 00 LIQ, Q4H, Dosing Weight 59.3, kg, PRN Pain Score 4-6, Start date: 11/08/21 14:39:00 CDT, Duration: 30 day, Stop date: 12/08/21 14:38:00 CDT ANES 2021-0 No 0.5 mg, Memoria HYDROmorpho 7-14 Route: l ne 19:39: IVP, Duy 00 Q15Min, Dosing Weight 59.3, kg, PRN Pain Score 7-10, Start date: 11/08/21 14:39:00 CDT, Duration: 4 doses or times, Stop date: Limited # of times ANES 2021-0 No 25 Memoria fentaNYL 7-14 microgram, l 19:39: Route: [place] 00 IVP, Q5Min, Dosing Weight 59.3, kg, PRN Pain Score 7-10, Priority: Routine, Start date: 11/08/21 14:39:00 CDT, Duration: 2 doses or times, Stop date: Limited # of times ANES 2021-0 No 0.2 mg, Memoria flumazenil 7-14 Route: l 19:39: IVP, PRN, [place] 00 Dosing Weight 59.3, kg, PRN Benzodiaze pine Reversal, Initial dose, Start date: 11/08/21 14:39:00 CDT, Duration: 30 day, Stop date: 12/08/21 14:38:00 CDT ANES 2021-0 No 0.4 mg, Memoria naloxone 7-14 Route: l 19:39: IVP, [place] 00 Q2MIN, Dosing Weight 59.3, kg, PRN Narcotic Reversal, Start date: 11/08/21 14:39:00 CDT, Duration: 8 doses or times, Stop date: Limited # of times ANES No 4 mg, Memoria ondansetron 11-08 Route: l 19:39: IVP, ONCE, Dosing Weight 59.3, kg, PRN Nausea & Vomiting, Start date: 11/08/21 14:39:00 CDT ANES No 6.25 mg, Memoria promethazin 11-08 Route: l e 19:39: IVPB, ONCE, Dosing Weight 59.3, kg, PRN Nausea & Vomiting, Start date: 11/08/21 14:39:00 CDT ePHEDrine No Route: IV, Me moria (ANES) 11-08 Drug form: l 16:26: INJ, ONCE, Stop date: 11/08/21 11:26:00 CDT ePHEDrine No Route: IV, Me moria (ANES) 11-08 Drug form: l 16:26: INJ, ONCE, Stop date: 11/08/21 11:26:00 CDT phenylephri 0 No Route: IV, Memoria ne (ANES) - Drug form: l 16:21: INJ, ONCE, Stop date: 11/08/21 11:21:00 CDT phenylephri 0 No Route: IV, Memoria ne (ANES) -14 Drug form: l 16:21: INJ, ONCE, Stop date: 11/08/21 11:21:00 CDT fentaNYL 2021-0 No Route: IV, Mem oria (ANES) -14 Drug form: l 16:01: INJ, ONCE, Stop date: 11/08/21 11:01:00 CDT fentaNYL 2021-0 No Route: IV, Mem oria (ANES) -14 Drug form: l 16:01: INJ, ONCE, Stop date: 11/08/21 11:01:00 CDT dexamethaso No Route: IV, Memoria ne (ANES) 7-14 Drug form: l 15:46: INJ, ONCE, Stop date: 11/08/21 10:46:00 CDT dexamethaso No Route: IV, Memoria ne (ANES) 7-14 Drug form: l 15:46: INJ, ONCE, Stop date: 11/08/21 10:46:00 CDT midazolam 2021-0 No Route: IV, Me moria (ANES) 7-14 Drug form: l 15:40: SOLN, Duy 00 ONCE, Stop date: 11/08/21 10:40:00 CDT lidocaine 2021-0 No Route: IV, Me moria (ANES) 7-14 Drug form: l 15:40: INJ, ONCE, Stop date: 11/08/21 10:40:00 CDT propofol 0 No Route: IV, Mem oria (ANES) 7-14 Drug form: l 15:40: INJ, ONCE, Stop date: 11/08/21 10:40:00 CDT rocuronium 0 No Route: IV, M emoria (ANES) 7-14 Drug form: l 15:40: INJ, ONCE, Stop date: 11/08/21 10:40:00 CDT fentaNYL 2021-0 No Route: IV, Mem oria (ANES) 7-14 Drug form: l 15:40: INJ, ONCE, Stop date: 11/08/21 10:40:00 CDT midazolam 0 No Route: IV, Me moria (ANES) 7-14 Drug form: l 15:40: SOLN, [place] 00 ONCE, Stop date: 11/08/21 10:40:00 CDT lidocaine 2021-0 No Route: IV, Me moria (ANES) 7-14 Drug form: l 15:40: INJ, ONCE, Stop date: 11/08/21 10:40:00 CDT propofol 2021-0 No Route: IV, Mem oria (ANES) 7-14 Drug form: l 15:40: INJ, ONCE, Stop date: 11/08/21 10:40:00 CDT rocuronium 0 No Route: IV, M emoria (ANES) 11-08 Drug form: l 15:40: INJ, ONCE, Stop date: 11/08/21 10:40:00 CDT fentaNYL 2021-0 No Route: IV, Mem oria (ANES) 11-08 Drug form: l 15:40: INJ, ONCE, Stop date: 11/08/21 10:40:00 CDT Sodium 2021-0 No Route: IV, Memor ia Chloride 11-08 Drug form: l 0.9% IV 14:39: INJ, Start Herm shama (ANES) date: mL + 11/08/21 vancomycin 9:39:00 (ANES) 1500 CDT, Stop mg date: 11/08/21 10:39:00 CDT Sodium 2021-0 No Route: IV, Memor ia Chloride 11-08 Drug form: l 0.9% IV 14:39: INJ, Start Herm shama (ANES) date: mL + 11/08/21 vancomycin 9:39:00 (ANES) 1500 CDT, Stop mg date: 11/08/21 10:39:00 CDT Isolyte S 2021-0 No Route: IV, Me moria PH 7.4 7-14 Total l (ANES) 1000 14:00: Volume: Her [place] mL 00 1,000, Start date: 11/08/21 9:00:00 CDT, Stop date: 11/08/21 10:00:00 CDT Isolyte S 2021-0 No Route: IV, Me moria PH 7.4 7-14 Total l (ANES) 1000 14:00: Volume: Her [place] mL 00 1,000, Start date: 11/08/21 9:00:00 CDT, Stop date: 11/08/21 10:00:00 CDT Tylenol 2021-0 No 1,000 mg, Memor ia 14 Route: PO, l 12:23: ONCE, Dosing Weight 61.364, kg, Priority: NOW, Start date: 11/08/21 7:23:00 CDT, Stop date: 11/08/21 7:23:00 CDT Tylenol 2021-0 No 1,000 mg, Memor ia 11-08 Route: PO, l 12:23: ONCE, Duy 00 Dosing Weight 61.364, kg, Priority: NOW, Start date: 11/08/21 7:23:00 CDT, Stop date: 11/08/21 7:23:00 CDT methylpheni Yes 20 mg = 1 M emoria date 20 mg 7-12 tab, PO, l oral tablet 13:34: BID, # 60 H ermann 00 tab, 0 Refill(s) metoprolol Yes 25 mg = 1 Me moria tartrate 25 7-12 tab, PO, l mg oral 13:34: BID, # 180 Herm shama tablet 00 tab, 0 Refill(s) aspirin 81 Yes 81 mg = 1 Me moria mg oral 7-12 cap, PO, l capsule 13:34: QAM, 0 Duy 00 Refill(s) Vitamin C No See Memoria 11-06 Instructio l 13:34: ns, Unk [place] dose 1 tab PO QAM, 0 Refill(s) multivitami No 1 tab, PO, Memoria n 7-12 QAM, 0 l 13:34: Refill(s) Duy 00 methylpheni Yes 20 mg = 1 M emoria date 20 mg 7-12 tab, PO, l oral tablet 13:34: BID, # 60 H ermann 00 tab, 0 Refill(s) metoprolol Yes 25 mg = 1 Me moria tartrate 25 7-12 tab, PO, l mg oral 13:34: BID, # 180 Herm shama tablet 00 tab, 0 Refill(s) aspirin 81 0 Yes 81 mg = 1 Me moria mg oral 7-12 cap, PO, l capsule 13:34: QAM, 0 Duy 00 Refill(s) Vitamin C No See Memoria 11-06 Instructio l 13:34: ns, Unk [place] 00 dose 1 tab PO QAM, 0 Refill(s) multivitami No 1 tab, PO, Memoria n 7-12 QAM, 0 l 13:34: Refill(s) [place] 00 clobazam 10 2022-0 Yes 10 mg, PO, Memoria mg oral 7-12 BID, # 60 l tablet 13:33: tab, 0 Duy 00 Refill(s) gabapentin 2021-0 Yes 100 mg = 1 M emoria 100 mg oral 7-12 cap, PO, l capsule 13:33: QAM, # 90 Brianna nn 00 cap, 1 Refill(s) clobazam 10 2021-0 Yes 10 mg, PO, Memoria mg oral 7-12 BID, # 60 l tablet 13:33: tab, 0 [place] 00 Refill(s) gabapentin 2021-0 Yes 100 mg = 1 M emoria 100 mg oral 7-12 cap, PO, l capsule 13:33: QAM, # 90 Brianna nn 00 cap, 1 Refill(s) methylpheni 2021-0 Yes [id number] 20mg Take 1 [facility] date HCl 20 7- 109 tablet by ity of mg tablet 00:00: mouth 2 (two) Medical times Branch daily. gabapentin 2021-0 Yes [id number] 100mg Take 1 [facility] 100 mg 7- 9105 capsule by ity of capsule 00:00: mouth 3 (three) Medical times Branch daily. cloBAZam 10 2021-0 Yes [id number] 10mg Take 1 [facility] mg tablet 7- tablet by ity o f 00:00: mouth 2 (two) Medical times Branch daily. methylpheni 2021-0 Yes [id number] 20mg Take 1 [facility] date HCl 20 7- 109 tablet by ity of mg tablet 00:00: mouth 2 (two) Medical times Branch daily. gabapentin 2021-0 Yes [id number] 100mg Take 1 [facility] 100 mg 7- 9105 capsule by ity of capsule 00:00: mouth 3 (three) Medical times Branch daily. cloBAZam 10 2021-0 Yes [id number] 10mg Take 1 [facility] mg tablet 7- tablet by ity o f 00:00: mouth 2 (two) Medical times Branch daily. gabapentin 2021-0 Yes [id number] 100mg Take 1 [facility] 100 mg 7- 9105 capsule by ity of capsule 00:00: mouth 3 (three) Medical times Branch daily. cloBAZam 10 2021-0 Yes [id number] 10mg Take 1 [facility] mg tablet 7-01 tablet by ity o f 00:00: mouth 2 (two) Medical times Branch daily. gabapentin 2021-0 Yes [id number] 100mg Take 1 [facility] 100 mg 7-01 9105 capsule by ity of capsule 00:00: mouth 3 (three) Medical times Branch daily. cloBAZam 10 0 Yes [id number] 10mg Take 1 [facility] mg tablet 7-01 tablet by ity o f 00:00: mouth 2 (two) Medical times Branch daily. gabapentin 2021-0 Yes [id number] 100mg Take 1 [facility] 100 mg 7- 9105 capsule by ity of capsule 00:00: mouth 3 (three) Medical times Branch daily. cloBAZam 10 0 Yes [id number] 10mg Take 1 [facility] mg tablet 7-01 tablet by ity o f 00:00: mouth (two) Medical times Branch daily. gabapentin 2021-0 Yes [id number] 100mg Take 1 [facility] 100 mg 7- 9105 capsule by ity of capsule 00:00: mouth (three) Medical times Branch daily. cloBAZam 10 0 Yes [id number] 10mg Take 1 [facility] mg tablet 7-01 tablet by ity o f 00:00: mouth (two) Medical times Branch daily. gabapentin 2021-0 Yes [id number] 100mg Take 1 [facility] 100 mg 7- 9105 capsule by ity of capsule 00:00: mouth (three) Medical times Branch daily. cloBAZam 10 0 Yes [id number] 10mg Take 1 [facility] mg tablet 7-01 tablet by ity o f 00:00: mouth 2 (two) Medical times Branch daily. gabapentin 2021-0 Yes [id number] 100mg Take 1 [facility] 100 mg 7-01 9105 capsule by ity of capsule 00:00: mouth 3 (three) Medical times Branch daily. gabapentin 2021-0 Yes [id number] 100mg Take 1 [facility] 100 mg 7-01 9105 capsule by ity of capsule 00:00: mouth 3 (three) Medical times Branch daily. cloBAZam 10 0 2022- No [id number] 10mg Take 1 [facility] mg tablet 10-26 tablet by ity of 00:00: 00:00 mouth 2 [place] 00 :00 (two) Medical times Branch daily. methylpheni 2021-0 2021- No [id number] 20mg Take 1 [facility] date HCl 20 10-26 109 tablet by it y of mg tablet 00:00: 00:[place] (two) Medical times [facility] daily. valproic 2021-0 Yes Take by [facility] acid 6- mouth. [facility] (Depakene) 15:50: 250 MG/5ML 30 oral liquid polyethylen 2022-0 Yes 17g QD Take 17 g U T e glycol 6- by mouth 1 Healt [facility] (Glycolax) 15:50: (one) time 17 GM/SCOOP 30 each day. powder senna 2022-0 Yes 1{tbl} QD Take 1 [facility] (Senokot) 6- tablet by Healt h 8.6 MG 15:50: mouth 1 tablet 30 (one) time each day. gabapentin 2022-0 Yes 400mg Q.[id number] Take 400 [facility] (Neurontin) 6- [id number] mg by H ealth 400 MG 15:50: 3D mouth 3 capsule 30 (three) times a day. mupirocin 2022-0 Yes [id number] Apply U T (Bactroban) 09-26 [id number] topically Health 2 % 15:50: 3D 3 (three) ointment 30 times a day. docusate 2022-0 Yes 100mg Q.5D Take 100 [facility] sodium 6-01 mg by Health (Colace) 15:50: mouth 2 100 MG 30 (two) capsule times a day. valproic 202-0 Yes Take by [facility] acid 6-01 mouth. Health (Depakene) 15:50: 250 MG/5ML 30 oral liquid polyethylen 2022-0 Yes 17g QD Take 17 g U T e glycol 6-01 by mouth 1 Healt [facility] (Glycolax) 15:50: (one) time 17 GM/SCOOP 30 each day. powder senna 2022-0 Yes 1{tbl} QD Take 1 [facility] (Senokot) 6- tablet by Healt h 8.6 MG 15:50: mouth 1 tablet 30 (one) time each day. gabapentin 2022-0 Yes 400mg Q.[id number] Take 400 [facility] (Neurontin) 6-01 [id number] mg by H ealth 400 MG 15:50: 3D mouth 3 capsule 30 (three) times a day. mupirocin 2022-0 Yes [id number] Apply U T (Bactroban) 6-01 [id number] topically Health 2 % 15:50: 3D 3 (three) ointment 30 times a day. docusate 2022-0 Yes 100mg Q.5D Take 100 [facility] sodium 6-01 mg by Health (Colace) 15:50: mouth 2 100 MG 30 (two) capsule times a day. valproic 2022-0 Yes Take by [facility] acid 6-01 mouth. Health (Depakene) 15:50: 250 MG/5ML 30 oral liquid polyethylen 2022-0 Yes 17g QD Take 17 g U T e glycol 6-01 by mouth 1 Healt h (Glycolax) 15:50: (one) time 17 GM/SCOOP 30 each day. powder senna 2022-0 Yes 1{tbl} QD Take 1 [facility] (Senokot) 6-01 tablet by Healt h 8.6 MG 15:50: mouth 1 tablet 30 (one) time each day. gabapentin 2022-0 Yes 400mg Q.[id number] Take 400 [facility] (Neurontin) 6-01 [id number] mg by H ealth 400 MG 15:50: 3D mouth 3 capsule 30 (three) times a day. mupirocin 2022-0 Yes Q.[id number] Apply U T (Bactroban) 6-01 [id number] topically Health 2 % 15:50: 3D 3 (three) ointment 30 times a day. docusate 2022-0 Yes 100mg Q.5D Take 100 [facility] sodium 6-01 mg by Health (Colace) 15:50: mouth 2 100 MG 30 (two) capsule times a day. valproic 2022-0 Yes Take by [facility] acid 6-01 mouth. Health (Depakene) 15:50: 250 MG/5ML 30 oral liquid polyethylen 2022-0 Yes 17g QD Take 17 g U T e glycol 6-01 by mouth 1 [facility]alt [facility] (Glycolax) 15:50: (one) time 17 GM/SCOOP 30 each day. powder senna 2022-0 Yes 1{tbl} QD Take 1 [facility] (Senokot) 6-01 tablet by Healt h 8.6 MG 15:50: mouth 1 tablet 30 (one) time each day. gabapentin 2022-0 Yes 400mg Q.[id number] Take 400 [facility] (Neurontin) 6-01 [id number] mg by H ealth 400 MG 15:50: 3D mouth 3 capsule 30 (three) times a day. mupirocin 2022-0 Yes Q.[id number] Apply U T (Bactroban) 6-01 [id number] topically Health 2 % 15:50: 3D 3 (three) ointment 30 times a day. docusate 2022-0 Yes 100mg Q.5D Take 100 [facility] sodium 6-01 mg by Health (Colace) 15:50: mouth 2 100 MG 30 (two) capsule times a day. valproic 2022-0 Yes Take by [facility] acid 6-01 mouth. Health (Depakene) 15:50: 250 MG/5ML 30 oral liquid polyethylen 2022-0 Yes 17g QD Take 17 g U T e glycol 6-01 by mouth 1 [facility]alt [facility] (Glycolax) 15:50: (one) time 17 GM/SCOOP 30 each day. powder senna 2022-0 Yes 1{tbl} QD Take 1 [facility] (Senokot) 6-01 tablet by Healt [facility] 8.6 MG 15:50: mouth 1 tablet 30 (one) time each day. gabapentin 2022-0 Yes 400mg Q.[id number] Take 400 [facility] (Neurontin) 6-01 [id number] mg by H ealth 400 MG 15:50: 3D mouth 3 capsule 30 (three) times a day. mupirocin 2022-0 Yes Q.[id number] Apply U T (Bactroban) 6-01 [id number] topically Health 2 % 15:50: 3D 3 (three) ointment 30 times a day. docusate 2022-0 Yes 100mg Q.5D Take 100 [facility] sodium 6-01 mg by Health (Colace) 15:50: mouth 2 100 MG 30 (two) capsule times a day. methylpheni 2021- No [id number] 20mg Take 1 [facility] date HCl 20 09-06 tablet by [facility] mg tablet 00:00: 00:00 [place] 3 [place] (three) [facility] times [facility] daily. traMADol 2021- No [id number] 50mg Q6H Take 1 U T (Ultram) 50 08-29 05-10 tablet (50 H ealth MG tablet 00:00: 04:59 mg total) 00 :00 by mouth every 6 (six) hours if needed for severe pain for up to 5 days. acetaminoph No 1,000 mg, M emoria en 08-23 Route: PO, l 23:59: ONCE, Dosing Weight 62.3, kg, Start date: 08/23/21 18:59:00 CDT, Stop date: 08/23/21 18:59:00 CDT acetaminoph No 1,000 mg, M emoria en 08-23 Route: PO, l 23:59: ONCE, Dosing Weight 62.3, kg, Start date: 08/23/21 18:59:00 CDT, Stop date: 08/23/21 18:59:00 CDT glycopyrrol No Route: IV, Memoria ate (ANES) 08-23 Drug form: l 20:18: INJ, ONCE Stop date: 08/23/21 15:18:00 CDT neostigmine No Route: IV, Memoria (ANES) 08-23 Drug form: l 20:18: INJ, ONCE, Stop date: 08/23/21 15:18:00 CDT glycopyrrol 0 No Route: IV, Memoria ate (ANES) 08-23 Drug form: l 20:18: INJ, ONCE Stop date: 08/23/21 15:18:00 CDT neostigmine No Route: IV, Memoria (ANES) 08-23 Drug form: l 20:18: INJ, ONCE Stop date: 08/23/21 15:18:00 CDT ondansetron 2021-0 No Route: IV, Memoria (ANES) 08-23 Drug form: l 20:13: INJ, ONCE, Stop date: 08/23/21 15:13:00 CDT ondansetron 2021-0 No Route: IV, Memoria (ANES) 08-23 Drug form: l 20:13: INJ, ONCE, Stop date: 08/23/21 15:13:00 CDT lidocaine 2021-0 No Route: IV, Me moria (ANES) 08-23 Drug form: l 19:27: INJ, ONCE, Stop date: 08/23/21 14:27:00 CDT propofol 2021-0 No Route: IV, Mem oria (ANES) 08-23 Drug form: l 19:27: INJ, ONCE, Stop date: 08/23/21 14:27:00 CDT rocuronium 2021-0 No Route: IV, M emoria (ANES) 08-23 Drug form: l 19:27: INJ, ONCE, Stop date: 08/23/21 14:27:00 CDT fentaNYL 2021-0 No Route: IV, Mem oria (ANES) 08-23 Drug form: l 19:27: INJ, ONCE, Stop date: 08/23/21 14:27:00 CDT lidocaine 2021-0 No Route: IV, Me moria (ANES) 08-23 Drug form: l 19:27: INJ, ONCE, Stop date: 08/23/21 14:27:00 CDT propofol 2021-0 No Route: IV, Mem oria (ANES) 08-23 Drug form: l 19:27: INJ, ONCE, Stop date: 08/23/21 14:27:00 CDT rocuronium 2021-0 No Route: IV, M emoria (ANES) 08-23 Drug form: l 19:27: INJ, ONCE, Stop date: 08/23/21 14:27:00 CDT fentaNYL 2021-0 No Route: IV, Mem oria (ANES) 08-23 Drug form: l 19:27: INJ, ONCE, Duy 00 Stop date: 08/23/21 14:27:00 CDT ceFAZolin 2021-0 No Route: IV, Me moria (ANES) 08-23 Drug form: l 19:22: INJ, ONCE, [place] 00 Stop date: 08/23/21 14:22:00 CDT ceFAZolin 2021-0 No Route: IV, Me moria (ANES) 08-23 Drug form: l 19:22: INJ, ONCE, Duy 00 Stop date: 08/23/21 14:22:00 CDT midazolam 2021-0 No Route: IV, Me moria (ANES) 08-23 Drug form: l 19:12: SOLN, Duy 00 ONCE, Stop date: 08/23/21 14:12:00 CDT midazolam 2021-0 No Route: IV, Me moria (ANES) 08-23 Drug form: l 19:12: SOLN, [place] 00 ONCE, Stop date: 08/23/21 14:12:00 CDT ANES 2021-0 No 10 mg, Memoria esmolol 08-23 Route: l 19:08: IVP, Duy 00 Q5Min, Dosing Weight 62.3, kg, PRN Other -See Comment, Start date: 08/23/21 14:08:00 CDT, Duration: 5 doses or times, Stop date: Limited # of times ANES 2021-0 No 5 mg, Memoria labetalol 08-23 Route: l 19:08: IVP, [place] 00 Q20Min, Dosing Weight 62.3, kg, PRN Elevated BP, Start date: 08/23/21 14:08:00 CDT, Duration: 2 doses or times, Stop date: Limited # of times ANES 2021-0 No 1 mg, Memoria metoprolol 08-23 Route: l 19:08: IVP, Duy 00 Q5Min, Dosing Weight 62.3, kg, PRN Other -See Comment, Start date: 08/23/21 14:08:00 CDT, Duration: 5 doses or times, Stop date: Limited # of times ANES 2021-0 No 0.2 mg, Memoria HYDROmorpho 08-23 Route: l ne 19:08: IVP, Duy 00 Q15Min, Dosing Weight 62.3, kg, PRN Pain Score 7-10, Start date: 08/23/21 14:08:00 CDT, Duration: 4 doses or times, Stop date: Limited # of times ANES 2021-0 No 0.2 mg, Memoria flumazenil 08-23 Route: l 19:08: IVP, PRN, [place] 00 Dosing Weight 62.3, kg, PRN Benzodiaze pine Reversal, Initial dose, Start date: 08/23/21 14:08:00 CDT, Duration: 30 day, Stop date: 09/22/21 14:07:00 CDT ANES 2021-0 No 0.4 mg, Memoria naloxone 08-23 Route: l 19:08: IVP, Duy 00 Q2MIN, Dosing Weight 62.3, kg, PRN Narcotic Reversal, Start date: 08/23/21 14:08:00 CDT, Duration: 8 doses or times, Stop date: Limited # of times ANES 2021-0 No 4 mg, Memoria ondansetron 08-23 Route: l 19:08: IVP, ONCE, Duy 00 Dosing Weight 62.3, kg, PRN Nausea & Vomiting, Start date: 08/23/21 14:08:00 CDT ANES 2021-0 No 10 mg, Memoria esmolol 08-23 Route: l 19:08: IVP, [place] 00 Q5Min, Dosing Weight 62.3, kg, PRN Other -See Comment, Start date: 08/23/21 14:08:00 CDT, Duration: 5 doses or times, Stop date: Limited # of times ANES 2021-0 No 5 mg, Memoria labetalol 08-23 Route: l 19:08: IVP, Duy 00 Q20Min, Dosing Weight 62.3, kg, PRN Elevated BP, Start date: 08/23/21 14:08:00 CDT, Duration: 2 doses or times, Stop date: Limited # of times ANES 2021-0 No 1 mg, Memoria metoprolol 08-23 Route: l 19:08: IVP, [place] 00 Q5Min, Dosing Weight 62.3, kg, PRN Other -See Comment, Start date: 08/23/21 14:08:00 CDT, Duration: 5 doses or times, Stop date: Limited # of times ANES No 0.2 mg, Memoria HYDROmorpho 08-23 Route: l ne 19:08: IVP, [place] 00 Q15Min, Dosing Weight 62.3, kg, PRN Pain Score 7-10, Start date: 08/23/21 14:08:00 CDT, Duration: 4 doses or times, Stop date: Limited # of times ANES No 0.2 mg, Memoria flumazenil 08-23 Route: l 19:08: IVP, PRN, Dosing Weight 62.3, kg, PRN Benzodiaze pine Reversal, Initial dose, Start date: 08/23/21 14:08:00 CDT, Duration: 30 day, Stop date: 09/22/21 14:07:00 CDT ANES No 0.4 mg, Memoria naloxone 08-23 Route: l 19:08: IVP, [place] Q2MIN, Dosing Weight 62.3, kg, PRN Narcotic Reversal, Start date: 08/23/21 14:08:00 CDT, Duration: 8 doses or times, Stop date: Limited # of times ANES No 4 mg, Memoria ondansetron 08-23 Route: l 19:08: IVP, ONCE, Dosing Weight 62.3, kg, PRN Nausea & Vomiting, Start date: 08/23/21 14:08:00 CDT Isolyte S No Route: IV, Me moria PH 7.4 - Total l (ANES) 1000 18:35: Volume: Her [place] mL 00 1,000, Start date: 08/23/21 13:35:00 CDT, Stop date: 08/23/21 14:35:00 CDT Isolyte S No Route: IV, Me moria PH 7.4 - Total l (ANES) 1000 18:35: Volume: Her [place] mL 00 1,000, Start date: 08/23/21 13:35:00 CDT, Stop date: 08/23/21 14:35:00 CDT HYDROcodone 2021- No [id number] 1{tbl} Q6H Take 1 UT -acetaminop 4-27 05-03 tablet by Daniel debbie johnston ([place]) 00:00: 04:59 mouth 10-325 MG 00 :00 every 6 tablet (six) hours if needed for severe pain for up to 5 days. ibuprofen No Notes: Memori a 400 mg oral 4- (Same as: l tablet 16:26: Motrin) "Do Not Crush" Give with food. ibuprofen 2021-0 No Notes: Memori a 400 mg oral 4- (Same as: l tablet 16:26: Motrin) "Do Not Crush" Give with food. Lovenox 2022-0 No 40 mg, 0.4 Dannie pat 4-08 mL, Route: l 23:00: SUB-Q, Duy Drug form: INJ, [id number], Dosing Weight 65, kg, Start date: 08/03/21 18:00:00 CDT, Duration: 30 day, Stop date: 09/01/21 18:00:00 CDT, 0 aspirin 81 2022-0 No 81 mg, 1 Mem oria mg tablet, 4-08 tab, l enteric 23:00: Route: PO, Herm shama coated Drug form: ECTAB, Daily, Dosing Weight 65, kg, Priority: NOW, Start date: 08/03/21 18:00:00 CDT, Duration: 30 day, Stop date: 09/02/21 12:00:00 CDT, 0 Lovenox 2-0 No 40 mg, 0.4 Dannie pat 4-08 mL, Route: l 23:00: SUB-Q, Duy Drug form: INJ, [id number], Dosing Weight 65, kg, Start date: 08/03/21 18:00:00 CDT, Duration: 30 day, Stop date: 09/01/21 18:00:00 CDT, 0 aspirin 81 2022-0 No 81 mg, 1 Mem oria mg tablet, 4-08 tab, l enteric 23:00: Route: PO, Herm shama coated Drug form: ECTAB, Daily, Dosing Weight 65, kg, Priority: NOW, Start date: 08/03/21 18:00:00 CDT, Duration: 30 day, Stop date: 09/02/21 12:00:00 CDT, 0 polyethylen 2022-0 No 17 gm, Dannie pat e glycol 4-08 Route: PO, l 3350 14:00: Drug form: [place] PWDR, Daily, Dosing Weight 65, kg, Start date: 08/03/21 9:00:00 CDT, Duration: 30 day, Stop date: 09/01/21 9:00:00 CDT, 0 Protonix 2022-0 No 40 mg, 1 Memor ia 4-08 tab, l 14:00: Route: PO, Drug form: ECTAB, Daily, Dosing Weight 65, kg, Start date: 08/03/21 9:00:00 CDT, Duration: 30 day, Stop date: 09/01/21 9:00:00 CDT, 0 polyethylen 2022-0 No 17 gm, Dannie pat e glycol 4-08 Route: PO, l 3350 14:00: Drug form: PWDR, Daily, Dosing Weight 65, kg, Start date: 08/03/21 9:00:00 CDT, Duration: 30 day, Stop date: 09/01/21 9:00:00 CDT, 0 Protonix 2022-0 No 40 mg, 1 Memor ia 4-08 tab, l 14:00: Route: PO, Drug form: ECTAB, Daily, Dosing Weight 65, kg, Start date: 08/03/21 9:00:00 CDT, Duration: 30 day, Stop date: 09/01/21 9:00:00 CDT, 0 oxyCODONE No Notes: Memori a immediate 4-08 (Same as: l release 04:31: 'Roxicodon Herm shama e) oxyCODONE No Notes: Memori a immediate 4-08 (Same as: l release 04:31: 'Roxicodon Herm shama e) gabapentin No Notes: Memor ia 300 mg oral 4-08 (Same as: l capsule 03:00: Neurontin) Herm shama gabapentin No Notes: Memor ia 300 mg oral 4-08 (Same as: l capsule 03:00: Neurontin) Herm shama senna No Notes: Memoria 4-08 (Same as: l 02:00: Senokot) senna 2021-0 No Notes: Memoria 4-08 (Same as: l 02:00: Senokot) acetaminoph 2021-0 No 1,000 mg, M emoria en -08 2 tab, l 01:00: Route: PO, Drug form: TAB, Q6Hnow, Dosing Weight 65, kg, Start date: 08/02/21 20:00:00 CDT, Stop date: 09/01/21 20:00:00 CDT, 0 acetaminoph 2021-0 No 1,000 mg, M emoria en 08 2 tab, l 01:00: Route: PO, Drug form: TAB, Q6Hnow, Dosing Weight 65, kg, Start date: 08/02/21 20:00:00 CDT, Stop date: 09/01/21 20:00:00 CDT, 0 ceFAZolin No Notes: Memori a (SCIP) -08 (Same as l 00:00: Ancef) ceFAZolin 2021-0 No Notes: Memori a (SCIP) 4-08 (Same as l 00:00: Ancef) midodrine 5 2021-0 Yes 5 mg = 1 Me moria mg oral 4-07 tab, PO, l tablet 22:29: TID, # 90 Scottie n 00 tab, 3 Refill(s) Metoprolol 0 Yes 25 mg = 1 Me moria Tartrate 25 4-07 tab, PO, l mg oral 22:29: BID, # 60 Brianna nn tablet 00 tab, 0 Refill(s) midodrine 5 2021-0 Yes 5 mg = 1 Me moria mg oral 4-07 tab, PO, l tablet 22:29: TID, # 90 Scottie n 00 tab, 3 Refill(s) Metoprolol 2021-0 Yes 25 mg = 1 Me moria Tartrate 25 4-07 tab, PO, l mg oral 22:29: BID, # 60 Brianna nn tablet 00 tab, 0 Refill(s) docusate 0 No 100 mg, 1 Dannie pat 4-07 cap, l 22:00: Route: PO, Duy 00 Drug form: CAP, BID, Dosing Weight 65, kg, Start date: 08/02/21 17:00:00 CDT, Duration: 30 day, Stop date: 09/01/21 9:00:00 CDT, 0 clobazam 2021-0 No Notes: Memoria 08-02 (Same as: l 22:00: Onfi) reserved for Neurology use only methylpheni 0 No Notes: Dannie pat date 08-02 (Same as l 22:00: :Ritalin) docusate 0 No 100 mg, 1 Dannie pat - cap, l 22:00: Route: PO, Drug form: CAP, BID, Dosing Weight 65, kg, Start date: 08/02/21 17:00:00 CDT, Duration: 30 day, Stop date: 09/01/21 9:00:00 CDT, 0 clobazam 2021-0 No Notes: Memoria 08-02 (Same as: l 22:00: Onfi) reserved for Neurology use only methylpheni 2021-0 No Notes: Dannie pat date 08-02 (Same as l 22:00: :Ritalin) Dextrose 0 No 12.5 gm, Memor ia 50% Syringe 08-02 25 mL, l (D50W) 20:41: Route: IVP, Drug Form: INJ, Dosing Weight 65, kg, PRN, PRN Blood Glucose Results, Start date: 08/02/21 15:41:00 CDT, Duration: 30 day, Stop date: 09/01/21 15:40:00 CDT, 0 glucagon 2021-0 No 1 mg, Memoria 08-02 Route: IM, l 20:41: Drug form: PDR/INJ, PRN, Dosing Weight 65, kg, PRN Blood Glucose Results, Start date: 08/02/21 15:41:00 CDT, Duration: 30 day, Stop date: 09/01/21 15:40:00 CDT, 0 bisacodyl 2021-0 No 10 mg, 1 Dannie pat 08-02 supp, l 20:41: Route: IA, Drug form: SUPP, Daily, Dosing Weight 65, kg, PRN Constipati on, Start date: 08/02/21 15:41:00 CDT, Duration: 30 day, Stop date: 09/01/21 15:40:00 CDT, 0 ondansetron No Notes: Dannie pat 08-02 (Same as: l 20:41: Zofran) MEDICATION WASTE Product Size: 4 mg Product Wasted: ___ mg melatonin No Notes: Memori a 08-02 (Same as: l 20:41: Melatonin) Dextrose No 12.5 gm, Memor ia 50% Syringe 08-02 25 mL, l (D50W) 20:41: Route: IVP, Drug Form: INJ, Dosing Weight 65, kg, PRN, PRN Blood Glucose Results, Start date: 08/02/21 15:41:00 CDT, Duration: 30 day, Stop date: 09/01/21 15:40:00 CDT, 0 glucagon No 1 mg, Memoria 08-02 Route: IM, l 20:41: Drug form: PDR/INJ, PRN, Dosing Weight 65, kg, PRN Blood Glucose Results, Start date: 08/02/21 15:41:00 CDT, Duration: 30 day, Stop date: 09/01/21 15:40:00 CDT, 0 bisacodyl No 10 mg, 1 Dannie pat 08-02 supp, l 20:41: Route: IA, Drug form: SUPP, Daily, Dosing Weight 65, kg, PRN Constipati on, Start date: 08/02/21 15:41:00 CDT, Duration: 30 day, Stop date: 09/01/21 15:40:00 CDT, 0 ondansetron No Notes: Dannie pat - (Same as: l 20:41: Zofran) MEDICATION WASTE Product Size: 4 mg Product Wasted: ___ mg melatonin No Notes: Memori a - (Same as: l 20:41: Melatonin) ANES No 1,000 mg, Memoria acetaminoph 08-02 Route: PO, l en 19:25: Drug form: [place] 00 TAB, ONCE, Dosing Weight 65, kg, PRN Pain Score 1-3, Start date: 08/02/21 14:25:00 CDT ANES No 1,000 mg, Memoria acetaminoph 08-02 Route: PO, l en 19:25: Drug form: [place] 00 TAB, ONCE, Dosing Weight 65, kg, PRN Pain Score 1-3, Start date: 08/02/21 14:25:00 CDT phenylephri No Route: IV, Memoria ne (ANES) 08-02 Drug form: l 17:26: INJ, ONCE, Stop date: 08/02/21 12:26:00 CDT phenylephri No Route: IV, Memoria ne (ANES) 08-02 Drug form: l 17:26: INJ, ONCE, Stop date: 08/02/21 12:26:00 CDT ANES No 5 mg, Memoria oxyCODONE 5 08-02 Route: PO, l mg 17:17: Drug form: [place] immediate 00 TAB, Q4H, release Dosing tablet Weight 65, kg, PRN Pain Score 4-6, Start date: 08/02/21 12:17:00 CDT, Duration: 30 day, Stop date: 09/01/21 12:16:00 CDT ANES No 0.5 mg, Memoria HYDROmorpho 08-02 Route: l ne 17:17: IVP, [place] 00 Q5Min, Dosing Weight 65, kg, PRN Pain Score 7-10, Start date: 08/02/21 12:17:00 CDT, Duration: 4 doses or times, Stop date: Limited # of times ANES No 0.2 mg, Memoria flumazenil 08-02 Route: l 17:17: IVP, PRN, Duy 00 Dosing Weight 65, kg, PRN Benzodiaze pine Reversal, Initial dose, Start date: 08/02/21 12:17:00 CDT, Duration: 30 day, Stop date: 09/01/21 12:16:00 CDT ANES 2022-0 No 0.4 mg, Memoria naloxone 4- Route: l 17:17: IVP, Duy 00 Q2MIN, Dosing Weight 65, kg, PRN Narcotic Reversal, Start date: 08/02/21 12:17:00 CDT, Duration: 8 doses or times, Stop date: Limited # of times ANES 2021-0 No 4 mg, Memoria ondansetron 4- Route: l 17:17: IVP, ONCE, Duy 00 Dosing Weight 65, kg, PRN Nausea & Vomiting, Start date: 08/02/21 12:17:00 CDT ANES 2021-0 No 5 mg, Memoria oxyCODONE 5 4- Route: PO, l mg 17:17: Drug form: Duy immediate 00 TAB, Q4H, release Dosing tablet Weight 65, kg, PRN Pain Score 4-6, Start date: 08/02/21 12:17:00 CDT, Duration: 30 day, Stop date: 09/01/21 12:16:00 CDT ANES 2021-0 No 0.5 mg, Memoria HYDROmorpho - Route: l ne 17:17: IVP, Duy 00 Q5Min, Dosing Weight 65, kg, PRN Pain Score 7-10, Start date: 08/02/21 12:17:00 CDT, Duration: 4 doses or times, Stop date: Limited # of times ANES 2021-0 No 0.2 mg, Memoria flumazenil 4- Route: l 17:17: IVP, PRN, Duy 00 Dosing Weight 65, kg, PRN Benzodiaze pine Reversal, Initial dose, Start date: 08/02/21 12:17:00 CDT, Duration: 30 day, Stop date: 09/01/21 12:16:00 CDT ANES 2021-0 No 0.4 mg, Memoria naloxone 4- Route: l 17:17: IVP, Duy 00 Q2MIN, Dosing Weight 65, kg, PRN Narcotic Reversal, Start date: 08/02/21 12:17:00 CDT, Duration: 8 doses or times, Stop date: Limited # of times ANES 2021-0 No 4 mg, Memoria ondansetron 4-07 Route: l 17:17: IVP, ONCE, Dosing Weight 65, kg, PRN Nausea & Vomiting, Start date: 08/02/21 12:17:00 CDT midazolam 2021-0 No Route: IV, Me moria (ANES) - Drug form: l 17:05: SOLN, Duy 00 ONCE, Stop date: 08/02/21 12:05:00 CDT propofol 2021-0 No Route: IV, Mem oria (ANES) 08-02 Drug form: l 17:05: INJ, ONCE, Stop date: 08/02/21 12:05:00 CDT rocuronium 2021-0 No Route: IV, M emoria (ANES) 08-02 Drug form: l 17:05: INJ, ONCE, Stop date: 08/02/21 12:05:00 CDT fentaNYL 2021-0 No Route: IV, Mem oria (ANES) 08-02 Drug form: l 17:05: INJ, ONCE, Stop date: 08/02/21 12:05:00 CDT ondansetron 2021-0 No Route: IV, Memoria (ANES) 08-02 Drug form: l 17:05: INJ, ONCE, Stop date: 08/02/21 12:05:00 CDT dexamethaso 2021-0 No Route: IV, Memoria ne (ANES) 08-02 Drug form: l 17:05: INJ, ONCE, Stop date: 08/02/21 12:05:00 CDT ePHEDrine 2021-0 No Route: IV, Me moria (ANES) 4- Drug form: l 17:05: INJ, ONCE, Stop date: 08/02/21 12:05:00 CDT midazolam 2021-0 No Route: IV, Me moria (ANES) 4- Drug form: l 17:05: SOLN, [place] 00 ONCE, Stop date: 08/02/21 12:05:00 CDT propofol 2021-0 No Route: IV, Mem oria (ANES) - Drug form: l 17:05: INJ, ONCE, Stop date: 08/02/21 12:05:00 CDT rocuronium No Route: IV, M emoria (ANES) - Drug form: l 17:05: INJ, ONCE, Stop date: 08/02/21 12:05:00 CDT fentaNYL 0 No Route: IV, Mem oria (ANES) 08-02 Drug form: l 17:05: INJ, ONCE, Stop date: 08/02/21 12:05:00 CDT ondansetron No Route: IV, Memoria (ANES) 4- Drug form: l 17:05: INJ, ONCE, Stop date: 08/02/21 12:05:00 CDT dexamethaso No Route: IV, Memoria ne (ANES) 08-02 Drug form: l 17:05: INJ, ONCE, Stop date: 08/02/21 12:05:00 CDT ePHEDrine No Route: IV, Me moria (ANES) - Drug form: l 17:05: INJ, ONCE, Stop date: 08/02/21 12:05:00 CDT ceFAZolin 0 No Route: IV, Me moria (ANES) 4-07 Drug form: l 16:55: INJ, ONCE, Stop date: 08/02/21 11:55:00 CDT ceFAZolin 0 No Route: IV, Me moria (ANES) 4-07 Drug form: l 16:55: INJ, ONCE, Stop date: 08/02/21 11:55:00 CDT Lactated 0 No Route: IV, Mem oria Ringers 4-07 Total l Injection 16:05: Volume: Brianna nn IV (ANES) 00 1,000, 1000 mL Start date: 08/02/21 11:05:00 CDT, Stop date: 08/02/21 12:05:00 CDT Lactated 2021-0 No Route: IV, Mem oria Ringers 4-07 Total l Injection 16:05: Volume: Brianna nn IV (ANES) 00 1,000, 1000 mL Start date: 08/02/21 11:05:00 CDT, Stop date: 08/02/21 12:05:00 CDT Isolyte S 2021-0 No 1,000 ml, Mem oria PH 7.4 4-07 Rate: TKO l 1,000 mL 15:39: ml/hr, Route: IV, Dosing Weight 65 kg, Total Volume: 1,000, Start date: 08/02/21 10:39:00 CDT, Duration: 30 day, Stop date: 09/01/21 10:38:00 CDT, BSA: 1.73 m2, 0 Isolyte S 2021-0 No 1,000 ml, Mem oria PH 7.4 4- Rate: TKO l 1,000 mL 15:39: ml/hr, Route: IV, Dosing Weight 65 kg, Total Volume: 1,000, Start date: 08/02/21 10:39:00 CDT, Duration: 30 day, Stop date: 09/01/21 10:38:00 CDT, BSA: 1.73 m2, 0 lidocaine-e Yes Notes: Dannie pat pi 4-07 (Same as: l 1%-[id number] 14:57: Xylocaine H ermann 10 mL + 00 w/Epinephr empty ine) container 1 ea lidocaine-e Yes Notes: Dannie pat pi 4-07 (Same as: l 1%-1:200942 14:57: Xylocaine H ermann 10 mL + 00 w/Epinephr empty ine) container 1 ea midodrine No PO, 0 Memoria 4-05 Refill(s) l 18:01: 00 midodrine 0 No PO, 0 Memoria 4-05 Refill(s) l 18:01: 00 cloBAZam 10 2021- No [id number] 10mg Take 1 [facility] mg tablet 07-27 tablet by [facility] of 00:00: 00:00 mouth 2 00 :00 (two) [facility] daily. gabapentin 2021- No [id number] 100mg Take 1 [facility] 100 mg 07-26 9105 capsule by [facility] capsule 00:00: 00:00 mouth 3 00 :00 (three) [facility] daily. aspirin 81 2022-0 Yes 81mg Take 81 mg [facility] mg chewable 1-07 by mouth. [facility] of tablet 13:16: [address] metoprolol 2021-0 Yes 25mg Take 25 mg U nivers tartrate 25 1-07 by mouth. ity of mg tablet 13:16: [address] aspirin 81 2021-0 Yes 81mg Take 81 mg U nivers mg chewable 1-07 by mouth. ity of tablet 13:16: [address] metoprolol 2021-0 Yes 25mg Take 25 mg U nivers tartrate 25 1-07 by mouth. ity of mg tablet 13:16: [address] aspirin 81 2021-0 Yes 81mg Take 81 mg U nivers mg chewable 1-07 by mouth. ity of tablet 13:16: [address] metoprolol 2021-0 Yes 25mg Take 25 mg U nivers tartrate 25 1-07 by mouth. ity of mg tablet 13:16: [address] aspirin 81 2021-0 Yes 81mg Take 81 mg U nivers mg chewable 1-07 by mouth. ity of tablet 13:16: [address] metoprolol 2021-0 Yes 25mg Take 25 mg U nivers tartrate 25 1-07 by mouth. ity of mg tablet 13:16: [address] aspirin 81 2021-0 Yes 81mg Take 81 mg U nivers mg chewable 1-07 by mouth. ity of tablet 13:16: [address] metoprolol 2021-0 Yes 25mg Take 25 mg U nivers tartrate 25 1-07 by mouth. ity of mg tablet 13:16: [address] aspirin 81 2021-0 Yes 81mg Take 81 mg U nivers mg chewable 1-07 by mouth. ity of tablet 13:16: [address] metoprolol 2021-0 Yes 25mg Take 25 mg U nivers tartrate 25 1-07 by mouth. ity of mg tablet 13:16: [address] aspirin 81 2-0 Yes 81mg Take 81 mg U nivers mg chewable 1-07 by mouth. ity of tablet 13:16: [address] metoprolol 2022-0 Yes 25mg Take 25 mg U nivers tartrate 25 1-07 by mouth. ity of mg tablet 13:16: [address] aspirin 81 0 Yes 81mg Take 81 mg U nivers mg chewable 1-07 by mouth. ity of tablet 13:16: [address] metoprolol 0 Yes 25mg Take 25 mg U nivers tartrate 25 1-07 by mouth. ity of mg tablet 13:16: [address] aspirin 81 2021-0 Yes 81mg Take 81 mg U nivers mg chewable 1-07 by mouth. ity of tablet 13:16: [address] metoprolol 0 Yes 25mg Take 25 mg U nivers tartrate 25 1-07 by mouth. ity of mg tablet 13:16: [address] cloBAZam 2020-04 Yes 10mg Q.5D Take 10 [...] time each day. gabapentin 2020-04 Yes 400mg Q.[id number] Take 400 UT (Neurontin) 2-29 [id number] mg by [facility] 400 MG 10:06: 3D mouth 3 capsule 56 (three) times a day. mupirocin 2020-04 Yes Q.[id number] Apply U T (Bactroban) 2-29 [id number] topically Health 2 % 10:06: 3D 3 [...] time each day. gabapentin 2020-04 Yes 400mg Q.[id number] Take 400 UT (Neurontin) 2-29 [id number] mg by [facility] 400 MG 10:06: 3D mouth 3 capsule 56 (three) times a day. mupirocin 2020-04 Yes Q.[id number] Apply U T (Bactroban) 2-29 [id number] topically Health 2 % 10:06: 3D 3 [...] time each day. gabapentin 2020-04 Yes 400mg Q.[id number] Take 400 UT (Neurontin) 2-29 [id number] mg by [facility] 400 MG 10:06: 3D mouth 3 capsule 56 (three) times a day. mupirocin 2020-04 Yes Q.[id number] Apply U T (Bactroban) 2-29 [id number] topically Health 2 % 10:06: 3D 3 [...] time each day. gabapentin 2020-04 Yes 400mg Q.[id number] Take 400 UT (Neurontin) 2-29 [id number] mg by [facility] 400 MG 10:06: 3D mouth 3 capsule 56 (three) times a day. mupirocin 2020-04 Yes Q.[id number] Apply U T (Bactroban) 2-29 [id number] topically Health 2 % 10:06: 3D 3 [...] time each day. gabapentin 2020-04 Yes 400mg Q.[id number] Take 400 UT (Neurontin) 2-29 [id number] mg by H ealth 400 MG 10:06: 3D mouth 3 capsule 56 (three) times a day. mupirocin 2020-04 Yes Q.[id number] Apply U T (Bactroban) 2-29 [id number] topically Health 2 % 10:06: 3D 3 [...] time each day. gabapentin 2020-04 Yes 400mg Q.[id number] Take 400 UT (Neurontin) 2-29 [id number] mg by [facility] ealth 400 MG 10:06: 3D mouth 3 capsule 56 (three) times a day. mupirocin 2020-04 Yes Q.[id number] Apply U T (Bactroban) 2-29 [id number] topically Health 2 % 10:06: 3D 3 [...] time each day. gabapentin 2020-04 Yes 400mg Q.[id number] Take 400 UT (Neurontin) 2-29 [id number] mg by [facility] ealth 400 MG 10:06: 3D mouth 3 capsule 56 (three) times a day. mupirocin 2020-04 Yes Q.[id number] Apply U T (Bactroban) 2-29 [id number] topically Health 2 % 10:06: 3D 3 [...] time each day. gabapentin 2020-04 Yes 400mg Q.49577893 Take 400 UT (Neurontin) 2-29 [id number] mg by [facility] ealth 400 MG 10:06: 3D mouth 3 capsule 56 (three) times a day. mupirocin 2020-04 Yes Q.75316300 Apply U T (Bactroban) 2-29 [id number] topically Health 2 % 10:06: 3D 3 [...] time each day. gabapentin 2020-04 Yes 400mg Q.[id number] Take 400 UT (Neurontin) 2-29 [id number] mg by [facility] ealth 400 MG 10:06: 3D mouth 3 capsule 56 (three) times a day. mupirocin 2020-04 Yes Q.[id number] Apply U T (Bactroban) 2-29 [id number] topically Health 2 % 10:06: 3D 3 [...] time each day. gabapentin 2020-04 Yes 400mg Q.[id number] Take 400 [facility] (Neurontin) 2-29 [id number] mg by [facility] ealth 400 MG 10:06: 3D mouth 3 capsule 56 (three) times a day. mupirocin 2020-04 Yes Q.[id number] Apply U T (Bactroban) 2-29 [id number] topically Health 2 % 10:06: 3D 3 [...] time each day. gabapentin 2020-04 Yes 400mg Q.[id number] Take 400 UT (Neurontin) 2-29 [id number] mg by [facility] ealth 400 MG 10:06: 3D mouth 3 capsule 56 (three) times a day. mupirocin 2020-04 Yes Q.[id number] Apply U T (Bactroban) 2-29 [id number] topically Health 2 % 10:06: 3D 3 (three) ointment 56 times a day. docusate 2020-04 Yes 100mg Q.5D Take 100 UT sodium 2-29 mg by Health (Colace) 10:06: mouth 2 100 MG 56 (two) capsule times a day. cloBAZam 2020-04 Yes 10mg Q.5D Take 10 mg UT (Onfi) 2.5 2-29 by mouth [facility] mg/mL 10:06: twice a suspension 56 day. cloBAZam 2020-04 Yes 10mg Q.5D Take 10 mg UT (Onfi) 2.5 2-29 by mouth [facility]alt [facility] mg/mL 10:06: twice a suspension 56 day. cloBAZam 2020-04 Yes 10mg Q.5D Take 10 mg UT (Onfi) 2.5 2-29 by mouth [facility]alt [facility] mg/mL 10:06: twice a suspension 56 day. cloBAZam 2020-04 Yes 10mg Q.5D Take 10 mg UT (Onfi) 2.5 2-29 by mouth [facility]alt [facility] mg/mL 10:06: twice a suspension 56 day. cloBAZam 2020-04 Yes 10mg Q.5D Take 10 mg UT (Onfi) 2.5 2-29 by mouth [facility]alt [facility] mg/mL 10:06: twice a suspension 56 day. gabapentin 2020-04 Yes PO, Memoria 300 MG Oral 1-18 Q8H-06, 0 l Capsule 17:51: Refill(s) Brianna nn 00 Mupirocin 2020-04 Yes 1 appl, Memor ia 1-18 TOP, TID, l 17:51: 0 Duy 00 Refill(s) Valproic 2020-04 Yes 250 mg = 5 Mem oria Acid 50 1-18 mL, PO, l MG/ML Oral 17:51: Q6H, 0 Brianna nn Solution 00 Refill(s) gabapentin 2020-04 Yes PO, Memoria 300 MG [...] Refill(s) Aluminum 2020-04 Yes 0 Memoria Hydroxide -18 Refill(s) l 40 MG/ML / 17:50: [place] Magnesium 00 Hydroxide 40 MG/ML / Simethicone 4 MG/ML Oral Suspension [Maalox Plus] Aspirin 2020-04 Yes 325 mg = 1 Dannie pat 1-18 tab, PO, l 17:50: Daily, 0 Duy 00 Refill(s) acetaminoph 2020-04 Yes 1,000 mg = Memoria en 500 mg -18 2 tab, PO, l oral 17:50: Q6H, 0 [place] tablet. 00 Refill(s) Aluminum 2020-04 Yes 0 Memoria Hydroxide 1-18 Refill(s) l 40 MG/ML / 17:50: Duy Magnesium 00 Hydroxide 40 MG/ML / Simethicone 4 MG/ML Oral Suspension [Maalox Plus] Aspirin 2020-04 Yes 325 mg = 1 Dannie pat 1-18 tab, PO, l 17:50: Daily, 0 [place] 00 Refill(s) methylpheni 2020-04 Yes 20 mg = 1 M emoria date 20 mg 1-18 tab, PO, l oral tablet 17:49: TID, # 90 H ermann 00 tab, 0 Refill(s), Pharmacy: [facility], 162.56, cm, 02/28/21 20:13:00 CDT, Height, 72.727, kg, 02/28/21 20:13:00 CDT, Weight methylpheni 2020-04 Yes 20 mg = 1 M emoria date 20 mg 1-18 tab, PO, l oral tablet 17:49: TID, # 90 H ermann 00 tab, 0 Refill(s), Pharmacy: [facility], 162.56, cm, 02/28/21 20:13:00 CDT, Height, 72.727, kg, 02/28/21 20:13:00 CDT, Weight clobazam 10 2020-04 Yes 10 mg = 1 M emoria mg oral 1-18 tab, PO, l tablet 17:48: BID, # 60 Scottie n 00 tab, 1 Refill(s), Pharmacy: [facility], 162.56, cm, 02/28/21 20:13:00 CDT, Height, 72.727, kg, 02/28/21 20:13:00 CDT, Weight clobazam 10 2020-04 Yes 10 mg = 1 M emoria mg oral 1-18 tab, PO, l tablet 17:48: BID, # 60 Scottie n 00 tab, 1 Refill(s), Pharmacy: [facility], 162.56, cm, 02/28/21 20:13:00 CDT, Height, 72.727, kg, 02/28/21 20:13:00 CDT, Weight ondansetron 2020-04 No Route: IV, Memoria (ANES) 05-13 Drug form: l 15:09: INJ, ONCE, Stop date: 03/13/21 9:09:00 [employer] dexamethaso 2020-04 No Route: IV, Memoria ne (ANES) 05-13 Drug form: l 15:09: INJ, ONCE, Stop date: 03/13/21 9:09:00 [employer] glycopyrrol 2020-04 No Route: IV, Memoria ate (ANES) 1-16 Drug form: l 15:09: INJ, ONCE, Stop date: 03/13/21 9:09:00 [employer] neostigmine 2020-04 No Route: IV, Memoria (ANES) 1-16 Drug form: l 15:09: INJ, ONCE, Stop date: 03/13/21 9:09:00 [employer] ondansetron 2020-04 No Route: IV, Memoria (ANES) 1-16 Drug form: l 15:09: INJ, ONCE, Stop date: 03/13/21 9:09:00 [employer] dexamethaso 2020-04 No Route: IV, Memoria ne (ANES) 1-16 Drug form: l 15:09: INJ, ONCE, Stop date: 03/13/21 9:09:00 [employer] glycopyrrol 2020-04 No Route: IV, Memoria ate (ANES) 1-16 Drug form: l 15:09: INJ, ONCE, Stop date: 03/13/21 9:09:00 [employer] neostigmine 2020-04 No Route: IV, Memoria (ANES) 1-16 Drug form: l 15:09: INJ, ONCE, Stop date: 03/13/21 9:09:00 [employer] Mupirocin 2020-04 No 1 appl, Memor ia -16 Route: l 15:00: TOP, TID, Duy Drug form: OINT, Start date: 03/13/21 9:00:00 [employer], Duration: 30 day, Stop date: 04/11/21 17:00:00 [employer], 0 Mupirocin 2020-04 No 1 appl, Memor ia 1-16 Route: l 15:00: TOP, TID, Duy Drug form: OINT, Start date: 03/13/21 9:00:00 [employer], Duration: 30 day, Stop date: 04/11/21 17:00:00 [employer], 0 Fentanyl 2020-04 No Notes: Memoria 1-16 (Same as: l 14:56: Sublimaze) Duy 00 Preservati ve free. Hydromorpho 2020-04 No Notes: Dannie pat ne 1-16 Same as l 14:56: Dilaudid [place] 00 Flumazenil 2020-04 No Notes: Memor ia 1-16 (Same as: l 14:56: Romazicon) Duy 00 Naloxone 2020-04 No Notes: Memoria 1-16 Same as l 14:56: Narcan Ondansetron 2020-04 No Notes: Dannie pat 1-16 (Same as: l 14:56: Zofran) [place] 00 MEDICATION WASTE Product Size: 4 mg Product Wasted: ___ mg Promethazin 2020-04 No Notes: Do M emoria e 1-16 not give l 14:56: IV push. Duy 00 (Same as: Phenergan) Fentanyl 2020-04 No Notes: Memoria 1-16 (Same as: l 14:56: Sublimaze) Duy 00 Preservati ve free. Hydromorpho 2020-04 No Notes: Dannie pat ne 1-16 Same as l 14:56: Dilaudid Flumazenil 2020-04 No Notes: Memor ia 1-16 (Same as: l 14:56: Romazicon) Duy 00 Naloxone 2020-04 No Notes: Memoria 1-16 Same as l 14:56: Narcan Ondansetron 2020-04 No Notes: Dannie pat 1-16 (Same as: l 14:56: Zofran) MEDICATION WASTE Product Size: 4 mg Product Wasted: ___ mg Promethazin 2020-04 No Notes: Do M emoria e 1-16 not give l 14:56: IV push. [place] 00 (Same as: Phenergan) phenylephri 2020-04 No Route: IV, Memoria ne (ANES) 1-16 Drug form: l 14:44: INJ, ONCE, [place] 00 Stop date: 03/13/21 8:44:00 [employer] phenylephri 2020-04 No Route: IV, Memoria ne (ANES) 1-16 Drug form: l 14:44: INJ, ONCE, Duy 00 Stop date: 03/13/21 8:44:00 [employer] Cleocin 2020-04 No Route: IV, Dannie pat Phosphate 1-16 Drug form: l (ANES) 14:39: INJ, ONCE, Brianna Stop date: 03/13/21 8:39:00 [employer] Cleocin 2020-04 No Route: IV, Dannie pat Phosphate 1-16 Drug form: l (ANES) 14:39: INJ, ONCE, Brianna Stop date: 03/13/21 8:39:00 [employer] propofol 2020-04 No Route: IV, Mem oria (ANES) 1-16 Drug form: l 14:29: INJ, ONCE, Stop date: 03/13/21 8:29:00 [employer] rocuronium 2020-04 No Route: IV, M emoria (ANES) 1-16 Drug form: l 14:29: INJ, ONCE, Stop date: 03/13/21 8:29:00 [employer] succinylcho 2020-04 No Route: IV, Memoria line (ANES) 1-16 Drug form: l 14:29: INJ, ONCE, Stop date: 03/13/21 8:29:00 [employer] propofol 2020-04 No Route: IV, Mem oria (ANES) 1-16 Drug form: l 14:29: INJ, ONCE, Stop date: 03/13/21 8:29:00 [employer] rocuronium 2020-04 No Route: IV, M emoria (ANES) 1-16 Drug form: l 14:29: INJ, ONCE, Stop date: 03/13/21 8:29:00 [employer] succinylcho 2020-04 No Route: IV, Memoria line (ANES) 1-16 Drug form: l 14:29: INJ, ONCE, Stop date: 03/13/21 8:29:00 [employer] Isolyte S 2020-04 No Route: IV, Me moria PH 7.4 1-16 Total l (ANES) 1000 13:38: Volume: Her [place] mL 00 1,000, Start date: 03/13/21 7:38:00 [employer], Stop date: 03/13/21 8:38:00 [employer] Isolyte S 2020-04 No Route: IV, Me moria PH 7.4 -16 Total l (ANES) 1000 13:38: Volume: Her [place] mL 00 1,000, Start date: 03/13/21 7:38:00 [employer], Stop date: 03/13/21 8:38:00 [employer] Mupirocin 2020-04 No 1 appl, Memor ia 0.02 MG/MG 1-12 Route: l Topical 20:00: TOP, [place] Ointment 00 Daily, Drug form: OINT, Start date: 03/09/21 14:00:00 [employer], Duration: 30 day, Stop date: 04/08/21 9:00:00 [employer], 0 Mupirocin 2020-04 No 1 appl, Memor ia 0.02 MG/MG 12 Route: l Topical 20:00: TOP, Duy Ointment 00 Daily, Drug form: OINT, Start date: 03/09/21 14:00:00 [employer], Duration: 30 day, Stop date: 04/08/21 9:00:00 [employer], 0 gabapentin 2020-04 No Notes: Memor ia 50 MG/ML 1-11 (Same as: l Oral 20:00: Neurontin) Duy Solution 00 gabapentin 2020-04 No Notes: Memor ia 50 MG/ML 1-11 (Same as: l Oral 20:00: Neurontin) Duy Solution 00 tramadol 2020-04 No Notes: Not Mem oria hydrochlori 1-11 to exceed l de 50 MG 17:43: 400mg/day. Her [place] Oral Tablet 00 (Same As: Ultram) tramadol 2020-04 No Notes: Not Mem oria hydrochlori 1-11 to exceed l de 50 MG 17:43: 400mg/day. Her [place] Oral Tablet 00 (Same As: Ultram) Maalox 2020-04 No Notes: Memoria Advanced 1-10 (aluminum l Regular 16:40: hydroxide- Herm shama Strength 00 magnesium SUSP hyd-simeth icone 200-200-20 mg/5ml 30 ml ud RENETTA) Maalox 2020-04 No Notes: Memoria Advanced 1-10 (aluminum l Regular 16:40: hydroxide- Herm shama Strength 00 magnesium SUSP hyd-simeth icone 200-200-20 mg/5ml 30 ml ud RENETTA) Methylpheni 2020-04 No Notes: Dannie pat date 05-06 (Same as l 21:30: :Ritalin) Methylpheni 2020-04 No Notes: Dannie pat date 05-06 (Same as l 21:30: :Ritalin) Acetaminoph 2020-04 No Notes: Max Memoria en 05-04 acetaminop l 18:00: hen 4000 [place] 00 mg/day (4 gm/day). (Same as: Tylenol Extra Strength) Acetaminoph 2020-04 No Notes: Max Memoria en 05-04 acetaminop l 18:00: hen 4000 [place] 00 mg/day (4 gm/day). (Same as: Tylenol Extra Strength) Oxycodone 2020-04 No Notes: Memori a - (Same as: l 15:54: Roxicodone ) Oxycodone 2020-04 No Notes: Memori a -07 (Same as: l 15:54: Roxicodone ) Oxycodone 2020-04 No Notes: Memori a -07 (Same as: l 01:53: Roxicodone ) Oxycodone 2020-04 No Notes: Memori a -07 (Same as: l 01:53: Roxicodone ) ondansetron 2020-04 No Route: IV, Memoria (ANES) 05-03 Drug form: l 16:06: INJ, ONCE, Stop date: 03/03/21 11:06:00 CDT ondansetron 2020-04 No Route: IV, Memoria (ANES) 05-03 Drug form: l 16:06: INJ, ONCE, Stop date: 03/03/21 11:06:00 CDT ePHEDrine 2020-04 No Route: IV, Me moria (ANES) 05-03 Drug form: l 15:51: INJ, ONCE, Stop date: 03/03/21 10:51:00 CDT ePHEDrine 2020-04 No Route: IV, Me moria (ANES) 05-03 Drug form: l 15:51: INJ, ONCE, Stop date: 03/03/21 10:51:00 CDT midazolam 2020-04 No Route: IV, Me moria (ANES) - Drug form: l 15:46: SOLN, Duy 00 ONCE, Stop date: 03/03/21 10:46:00 CDT lidocaine 2020-04 No Route: IV, Me moria (ANES) 05-03 Drug form: l 15:46: INJ, ONCE, [place] 00 Stop date: 03/03/21 10:46:00 CDT propofol 2020-04 No Route: IV, Mem oria (ANES) 05-03 Drug form: l 15:46: INJ, ONCE, Duy 00 Stop date: 03/03/21 10:46:00 CDT rocuronium 2020-04 No Route: IV, M emoria (ANES) 05-03 Drug form: l 15:46: INJ, ONCE, Duy 00 Stop date: 03/03/21 10:46:00 CDT fentaNYL 2020-04 No Route: IV, Mem oria (ANES) - Drug form: l 15:46: INJ, ONCE, [place] 00 Stop date: 03/03/21 10:46:00 CDT dexamethaso 2020-04 No Route: IV, Memoria ne (ANES) 05-03 Drug form: l 15:46: INJ, ONCE, Stop date: 03/03/21 10:46:00 CDT midazolam 2020-04 No Route: IV, Me moria (ANES) - Drug form: l 15:46: SOLN, [place] ONCE, Stop date: 03/03/21 10:46:00 CDT lidocaine 2020-04 No Route: IV, Me moria (ANES) 05-03 Drug form: l 15:46: INJ, ONCE, [place] 00 Stop date: 03/03/21 10:46:00 CDT propofol 2020-04 No Route: IV, Mem oria (ANES) - Drug form: l 15:46: INJ, ONCE, Duy 00 Stop date: 03/03/21 10:46:00 CDT rocuronium 2020-04 No Route: IV, M emoria (ANES) 05-03 Drug form: l 15:46: INJ, ONCE, Duy 00 Stop date: 03/03/21 10:46:00 CDT fentaNYL 2020-04 No Route: IV, Mem oria (ANES) 05-03 Drug form: l 15:46: INJ, ONCE, Stop date: 03/03/21 10:46:00 CDT dexamethaso 2020-04 No Route: IV, Memoria ne (ANES) 05-03 Drug form: l 15:46: INJ, ONCE, Stop date: 03/03/21 10:46:00 CDT phenylephri 2020-04 No Route: IV, Memoria ne (ANES) 05-03 Drug form: l 15:41: INJ, ONCE, Stop date: 03/03/21 10:41:00 CDT phenylephri 2020-04 No Route: IV, Memoria ne (ANES) 05-03 Drug form: l 15:41: INJ, ONCE, Stop date: 03/03/21 10:41:00 CDT Hydralazine 2020-04 No 10 mg, Dannie [...] 10:21:00 CDT, Stop date: 03/03/21 10:21:00 CDT Acetaminoph 2020-04 No 1,000 mg, M [...] Duration: 30 day, Stop date: 04/02/21 10:20:00 [employer] Hydromorpho 2020-04 No 0.5 mg, Mem oria ne 05-03 Route: l 15:21: IVP, [place] 00 Q5Min, Dosing Weight 72.727, kg, PRN Pain Score 7-10, Start date: 03/03/21 10:21:00 CDT, Duration: 4 doses or times, Stop date: Limited # of times Flumazenil 2020-04 No 0.2 mg, Dannie pat 05-03 Route: l 15:21: IVP, PRN, [place] 00 Dosing Weight 72.727, kg, PRN Benzodiaze pine Reversal, Initial dose, Start date: 03/03/21 10:21:00 CDT, Duration: 30 day, Stop date: 04/02/21 9:20:00 [employer] Naloxone 2020-04 No 0.4 mg, Memori a 05-03 Route: l 15:21: IVP, Duy 00 Q2MIN, Dosing Weight 72.727, kg, PRN Narcotic Reversal, Start date: 03/03/21 10:21:00 CDT, Duration: 8 doses or times, Stop date: Limited # of times Ondansetron 2020-04 No 4 mg, Memor ia 05-03 Route: l 15:21: IVP, ONCE, Duy 00 Dosing Weight 72.727, kg, PRN Nausea & Vomiting, Start date: 03/03/21 10:21:00 CDT Promethazin 2020-04 No 6.25 mg, Me moria e 05-03 Route: l 15:21: IVPB, Duy 00 ONCE, Dosing Weight 72.727, kg, PRN Nausea & Vomiting, Start date: 03/03/21 10:21:00 CDT Hydralazine 2020-04 No 10 mg, Dannie pat 05-03 Route: l 15:21: IVP, [place] 00 Q20Min, Dosing Weight 72.727, kg, PRN Elevated BP, Start date: 03/03/21 10:21:00 CDT, Duration: 2 doses or times, Stop date: Limited # of times Labetalol 2020-04 No 10 mg, Memori a 05-03 Route: l 15:21: IVP, [place] 00 Q5Min, Dosing Weight 72.727, kg, PRN Elevated BP, Start date: 03/03/21 10:21:00 CDT, Duration: 5 doses or times, Stop date: Limited # of times Ketorolac 2020-04 No 15 mg, Memori a 05-03 Route: l 15:21: IVP, ONCE, [place] 00 Dosing Weight 72.727, kg, Start date: 03/03/21 10:21:00 CDT, Stop date: 03/03/21 10:21:00 CDT Acetaminoph 2020-04 No 1,000 mg, M emoria en 05-03 Route: l 15:21: IVPB, Drug Duy 00 form: INJ, ONCE, Dosing Weight 72.727, kg, PRN Pain Score 1-3, Start date: 03/03/21 10:21:00 CDT Oxycodone 2020-04 No 5 mg, Memoria Hydrochlori 05-03 Route: PO, l de 5 MG 15:21: Drug form: Herm shama Oral Tablet 00 TAB, Q4H, Dosing Weight 72.727, kg, PRN Pain Score 4-6, Start date: 03/03/21 10:21:00 CDT, Duration: 30 day, Stop date: 04/02/21 10:20:00 [employer] Hydromorpho 2020-04 No 0.5 mg, Mem oria ne 05-03 Route: l 15:21: IVP, Duy 00 Q5Min, Dosing Weight 72.727, kg, PRN Pain Score 7-10, Start date: 03/03/21 10:21:00 CDT, Duration: 4 doses or times, Stop date: Limited # of times Flumazenil 2020-04 No 0.2 mg, Dannie pat 05-03 Route: l 15:21: IVP, PRN, [place] 00 Dosing Weight 72.727, kg, PRN Benzodiaze pine Reversal, Initial dose, Start date: 03/03/21 10:21:00 CDT, Duration: 30 day, Stop date: 04/02/21 9:20:00 [employer] Naloxone 2020-04 No 0.4 mg, Memori a 05-03 Route: l 15:21: IVP, [place] 00 Q2MIN, Dosing Weight 72.727, kg, PRN Narcotic Reversal, Start date: 03/03/21 10:21:00 CDT, Duration: 8 doses or times, Stop date: Limited # of times Ondansetron 2020-04 No 4 mg, Memor ia 05-03 Route: l 15:21: IVP, ONCE, [place] 00 Dosing Weight 72.727, kg, PRN Nausea & Vomiting, Start date: 03/03/21 10:21:00 CDT Promethazin 2020-04 No 6.25 mg, Me moria e 05-03 Route: l 15:21: IVPB, [place] 00 ONCE, Dosing Weight 72.727, kg, PRN Nausea & Vomiting, Start date: 03/03/21 10:21:00 CDT Sodium 2020-04 No Route: IV, Memor ia Chloride 06 Drug form: l 0.9% IV 15:07: INJ, Start Herm shama (ANES) 94 00 date: mL + 03/03/21 clindamycin 10:07:00 (ANES) 900 CDT, Stop mg date: 03/03/21 11:07:00 CDT Sodium 2020-04 No Route: IV, Memor ia Chloride 06 Drug form: l 0.9% IV 15:07: INJ, Start Herm shama (ANES) 94 00 date: mL + 03/03/21 clindamycin 10:07:00 (ANES) 900 CDT, Stop mg date: 03/03/21 11:07:00 CDT Lactated 2020-04 No Route: IV, Mem oria Ringers -06 Total l Injection 14:43: Volume: Brianna nn IV (ANES) 00 1,000, 1000 mL Start date: 03/03/21 9:43:00 CDT, Stop date: 03/03/21 10:43:00 CDT Lactated 2020-04 No Route: IV, Mem oria Ringers 1-06 Total l Injection 14:43: Volume: Brianna nn IV (ANES) 00 1,000, 1000 mL Start date: 03/03/21 9:43:00 CDT, Stop date: 03/03/21 10:43:00 CDT Sodium 2020-04 No 1,000 mL, Memori a Chloride 1-04 Rate: 75 l 0.9% IV 20:18: ml/hr, [place] 1,000 mL 00 Infuse over: 13.3 hr, Route: IV, Dosing Weight 72.727 kg, Total Volume: 1,000, Start date: 03/01/21 15:18:00 CDT, Duration: 30 day, Stop date: 03/31/21 15:17:00 [employer], BSA: 1.83 m2, 0 Sodium 2020-04 No 1,000 mL, Memori a Chloride 1-04 Rate: 75 l 0.9% IV 20:18: ml/hr, [place] 1,000 mL 00 Infuse over: 13.3 hr, Route: IV, Dosing Weight 72.727 kg, Total Volume: 1,000, Start date: 03/01/21 15:18:00 CDT, Duration: 30 day, Stop date: 03/31/21 15:17:00 [employer], BSA: 1.83 m2, 0 clobazam 10 2020-04 No 10 mg = 1 M emoria mg oral 1-04 tab, PO, l tablet 15:27: BID, # 60 Scottie n 00 tab clobazam 10 2020-04 No 10 mg = 1 M emoria mg oral 1-04 tab, PO, l tablet 15:27: BID, # 60 Scottie n 00 tab lisinopril 2020-04 No 20 mg = 1 Me moria 20 mg oral 1-04 tab, PO, l tablet 15:26: Daily, # Duy 00 90 tab, 0 Refill(s) metoprolol 2020-04 No 25 mg = 1 Me moria tartrate 25 1-04 tab, PO, l mg oral 15:26: BID, # 180 Herm shama tablet 00 tab, 0 Refill(s) lisinopril 2020-04 No 20 mg = 1 Me moria 20 mg oral 1-04 tab, PO, l tablet 15:26: Daily, # Duy 00 90 tab, 0 Refill(s) metoprolol 2020-04 No 25 mg = 1 Me moria tartrate 25 1-04 tab, PO, l mg oral 15:26: BID, # 180 Herm shama tablet 00 tab, 0 Refill(s) Divalproex 2020-04 No 500 mg = 1 M emoria Sodium 500 1-04 tab, PO, l MG Enteric 15:25: BID, # 180 H ermann Coated 00 tab, 0 Tablet Refill(s) Divalproex 2020-04 No 500 mg = 1 M emoria Sodium 500 1-04 tab, PO, l MG Enteric 15:25: BID, # 180 H ermann Coated 00 tab, 0 Tablet Refill(s) methylpheni 2020-04 No 20 mg = 1 M emoria date 20 mg 1-04 tab, PO, l oral tablet 15:24: TID, # 60 H ermann 00 tab, 0 Refill(s) methylpheni 2020-04 No 20 mg = 1 M emoria date 20 mg 1-04 tab, PO, l oral tablet 15:24: TID, # 60 H ermann 00 tab, 0 Refill(s) Docusate 2020-04 Yes 1 tab, PO, Mem oria Sodium 50 1-04 BID, PRN l MG / 15:22: Constipati Duy sennosides, 00 on, 0 LONG-TERM 8.6 MG Refill(s) Oral Tablet Docusate 2020-04 Yes 1 tab, PO, Mem oria Sodium 50 1-04 BID, PRN l MG / 15:22: Constipati Duy sennosides, 00 on, 0 LONG-TERM 8.6 MG Refill(s) Oral Tablet Aspirin 2020-04 No 325 mg, 1 Memor ia 1-04 tab, l 14:00: Route: GT Drug form: TAB, Daily, Dosing Weight 70.455, kg, Start date: 03/01/21 9:00:00 CDT, Duration: 30 day, Stop date: 03/30/21 9:00:00 [employer], 0 clobazam 2020-04 No Notes: Memoria - (Same as: l 14:00: Onfi) reserved for Neurology use only Methylpheni 2020-04 No Notes: Dannie pat 05-01 (Same as l 14:00: :Ritalin) Aspirin 2020-04 No 325 mg, 1 Memor ia 1-04 tab, l 14:00: Route: GT, Duy Drug form: TAB, Daily, Dosing Weight 70.455, kg, Start date: 03/01/21 9:00:00 CDT, Duration: 30 day, Stop date: 03/30/21 9:00:00 [employer], 0 clobazam 2020-04 No Notes: Memoria - (Same as: l 14:00: Onfi) reserved for Neurology use only Methylpheni 2020-04 No Notes: Dannie pat 05-01 (Same as l 14:00: :Ritalin) Valproate 2020-04 No 250 mg, 5 Mem oria 1-04 mL, Route: l 05:00: GT, Drug form: SYRP, Q6H, Dosing Weight 70.455, kg, Start date: 03/01/21 0:00:00 CDT, Duration: 30 day, Stop date: 03/31/21 4:00:00 [employer], 0 Valproate 2020-04 No 250 mg, 5 Mem oria 1-04 mL, Route: l 05:00: GT, Drug form: SYRP, Q6H, Dosing Weight 70.455, kg, Start date: 03/01/21 0:00:00 CDT, Duration: 30 day, Stop date: 03/31/21 4:00:00 [employer], 0 gabapentin 2020-04 No Notes: Memor ia 50 MG/ML - (Same as: l Oral 03:00: Neurontin) Duy Solution gabapentin 2020-04 No Notes: Memor ia 50 MG/ML -04 (Same as: l Oral 03:00: Neurontin) Duy Solution Docusate 2020-04 No 1 tab, Memoria Sodium 50 -04 Route: GT, l MG / 02:00: Drug Form: [place] sennosides, 00 TAB, LONG-TERM 8.6 MG Dosing Oral Tablet Weight 70.455, kg, Q12H, Start date: 02/28/21 21:00:00 CDT, Duration: 30 day, Stop date: 03/30/21 9:00:00 [employer], 0 Docusate 2020-04 No 1 tab, Memoria Sodium 50 05-01 Route: GT, l MG / 02:00: Drug Form: [place] sennosides, 00 TAB, LONG-TERM 8.6 MG Dosing Oral Tablet Weight 70.455, kg, Q12H, Start date: 02/28/21 21:00:00 CDT, Duration: 30 day, Stop date: 03/30/21 9:00:00 [employer], 0 Lovenox 2020-04 No Notes: Memoria 1-04 (Same as: l 01:00: Lovenox) Lovenox 2020-04 No Notes: Memoria 1-04 (Same as: l 01:00: Lovenox) Acetaminoph 2020-04 No Notes: Max Memoria en -03 acetaminop l 23:38: hen 4000 Duy 00 mg/day (4 gm/day). (Same as: Tylenol Extra Strength) Acetaminoph 2020-04 No Notes: Max Memoria en -03 acetaminop l 23:38: hen 4000 Duy 00 mg/day (4 gm/day). (Same as: Tylenol Extra Strength) Dextrose 2020-04 No 12.5 gm, Memor ia 50% Syringe 04-30 25 mL, l (D50W) 23:36: Route: Duy 00 IVP, Drug Form: INJ, Dosing Weight 70.455, kg, PRN, PRN Blood Glucose Results, Start date: 02/28/21 18:36:00 CDT, Duration: 30 day, Stop date: 03/30/21 17:35:00 [employer], 0 Glucagon 2020-04 No 1 mg, Memoria 04-30 Route: IM, l 23:36: Drug form: [place] 00 PDR/INJ, PRN, Dosing Weight 70.455, kg, PRN Blood Glucose Results, Start date: 02/28/21 18:36:00 CDT, Duration: 30 day, Stop date: 03/30/21 17:35:00 [employer], 0 Dextrose 2020-04 No 12.5 gm, Memor ia 50% Syringe 04-30 25 mL, l (D50W) 23:36: Route: [place] 00 IVP, Drug Form: INJ, Dosing Weight 70.455, kg, PRN, PRN Blood Glucose Results, Start date: 02/28/21 18:36:00 CDT, Duration: 30 day, Stop date: 03/30/21 17:35:00 [employer], 0 Glucagon 2020-04 No 1 mg, Memoria 04-30 Route: IM, l 23:36: Drug form: Duy PDR/INJ, PRN, Dosing Weight 70.455, kg, PRN Blood Glucose Results, Start date: 02/28/21 18:36:00 CDT, Duration: 30 day, Stop date: 03/30/21 17:35:00 [employer], 0 Valproic Yes 250 mg = 5 Mem oria Acid 50 9-28 mL, GT, l MG/ML Oral 20:33: Q6H, 0 Brianna nn Solution 00 Refill(s) Valproic Yes 250 mg = 5 Mem oria Acid 50 9-28 mL, GT, l MG/ML Oral 20:33: Q6H, 0 Brianna nn Solution 00 Refill(s) acetaminoph Yes 1,000 mg = Memoria en 500 mg -28 2 tab, GT, l oral 20:32: Q6Hnow, [place] tablet. 00 PRN pain, 0 Refill(s) Docusate Yes 1 tab, GT, Mem oria Sodium 50 9-28 Q12H, 0 l MG / 20:32: Refill(s) [place] sennosides, 00 LONG-TERM 8.6 MG Oral Tablet gabapentin Yes 400 mg = 8 M emoria 50 MG/ML 9-28 mL, GT, l Oral 20:32: Q8H-06, 0 Duy Solution 00 Refill(s) acetaminoph Yes 1,000 mg = Memoria en 500 mg -28 2 tab, GT, l oral 20:32: Q6Hnow, Duy tablet. 00 PRN pain, 0 Refill(s) Docusate 2021-0 Yes 1 tab, GT, Mem oria Sodium 50 01-23 Q12H, 0 l MG / 20:32: Refill(s) Duy sennosides, 00 LONG-TERM 8.6 MG Oral Tablet gabapentin Yes 400 mg = 8 M emoria 50 MG/ML 01-23 mL, GT, l Oral 20:32: Q8H-06, 0 Duy Solution 00 Refill(s) Aspirin Yes 325 mg = 1 Dannie pat 01-23 tab, GT, l 20:31: Daily, 0 Duy 00 Refill(s) clobazam Yes 10 mg = 4 Dannie pat 2.5 mg/mL 01-23 mL, GT, l oral 20:31: BID, 0 Duy suspension 00 Refill(s) methylpheni Yes 20 mg = 4 M emoria date 5 mg 01-23 tab, GT, l oral tablet 20:31: BID, 0 Herm shama 00 Refill(s) Aspirin Yes 325 mg = 1 Dannie pat 01-23 tab, GT, l 20:31: Daily, 0 [place] 00 Refill(s) clobazam Yes 10 mg = 4 Dannie pat 2.5 mg/mL 01-23 mL, GT, l oral 20:31: BID, 0 [place] suspension 00 Refill(s) methylpheni Yes 20 mg = 4 M emoria date 5 mg 01-23 tab, GT, l oral tablet 20:31: BID, 0 Herm shama 00 Refill(s) D5W S No 1,000 mL, Mem oria 1,000 mL 01-22 Rate: 75 l 20:09: ml/hr, Duy 00 Infuse over: 13.3 hr, Route: IV, Dosing Weight 68.182 kg, Total Volume: 1,000, Priority: NOW, Start date: 01/22/21 15:09:00 CDT, Duration: 1 doses or times, Stop date: 01/23/21 4:26:00 CDT, BSA: 1.77 m2, 0 D5W /S No 1,000 mL, Mem oria 1,000 mL 01-22 Rate: 75 l 20:09: ml/hr, Duy 00 Infuse over: 13.3 hr, Route: IV, Dosing Weight 68.182 kg, Total Volume: 1,000, Priority: NOW, Start date: 01/22/21 15:09:00 CDT, Duration: 1 doses or times, Stop date: 01/23/21 4:26:00 CDT, BSA: 1.77 m2, 0 Oxycodone No Notes: Memori a Hydrochlori 9-27 (Same l de 1 MG/ML 20:08: as:'Roxico H ermann Oral done) To Solution be drawn up in 3 mL syr Oxycodone No Notes: Memori a Hydrochlori 9-27 (Same l de 1 MG/ML 20:08: as:'Roxico H ermann Oral done) To Solution be drawn up in 3 mL syr Lidocaine No 1 %, Memoria 01-22 Route: l 16:25: SUB-Q, ONCE, Dosing Weight 68.182, kg, Start date: 01/22/21 11:25:00 CDT, Stop date: 01/22/21 11:25:00 CDT Fentanyl No Notes: Memoria 9-27 (Same as: l 16:25: Sublimaze) Preservati ve free. Midazolam No Notes: Memori a -27 (Same as: l 16:25: Versed) MEDICATION WASTE Product Size: 2 mg Product Wasted: ___ mg Glucagon No 1 mg, Memoria 01-22 Route: IV, l 16:25: ONCE, Dosing Weight 68.182, kg, Start date: 01/22/21 11:25:00 CDT, Stop date: 01/22/21 11:25:00 CDT Lidocaine No 1 %, Memoria 01-22 Route: l 16:25: SUB-Q, 00 ONCE, Dosing Weight 68.182, kg, Start date: 01/22/21 11:25:00 CDT, Stop date: 01/22/21 11:25:00 CDT Fentanyl No Notes: Memoria 9-27 (Same as: l 16:25: Sublimaze) Preservati ve free. Midazolam No Notes: Memori a 01-22 (Same as: l 16:25: Versed) MEDICATION WASTE Product Size: 2 mg Product Wasted: ___ mg Glucagon No 1 mg, Memoria 01-22 Route: IV, l 16:25: ONCE, Dosing Weight 68.182, kg, Start date: 01/22/21 11:25:00 CDT, Stop date: 01/22/21 11:25:00 CDT Beneprotein No Notes: Dannie pat 7 gm pkt 01-20 (Same as: l 22:00: Beneprotei n) Beneprotein No Notes: Dannie pat 7 gm pkt 01-20 (Same as: l 22:00: Beneprotei Duy 00 n) Vancomycin No 2000 mg: Me moria 9-24 infuse l 22:00: over 2.5 [place] 00 hours For adult patients only: Round to nearest 250 mg per Medical Staff approval MEDICATION WASTE Product Size: 1000 mg Product Wasted: ___ mg Vancomycin No 2000 mg: Me moria 9-24 infuse l 22:00: over 2.5 [place] 00 hours For adult patients only: Round [...] 01/20/21 4:41:00 CDT, BSA: 1.77 m2, 0 D5W 1,000 No 1,000 mL, Mem oria mL 24 Rate: 75 l 20:24: ml/hr, Infuse over: 13.3 hr, Route: IV, Dosing Weight 68.182 kg, Total Volume: 1,000, Priority: NOW, Start date: 01/19/21 15:24:00 CDT, Duration: 1 doses or times, Stop date: 01/20/21 4:41:00 CDT, BSA: 1.77 m2, 0 Lactated 2020-0 No 1,000 mL, Dannie pat Ringers IV 01-18 Rate: 75 l 1,000 mL 21:57: ml/hr, [place] 00 Infuse over: 13.3 hr, Route: IV, Dosing Weight 68.182 kg, Total Volume: 1,000, Priority: NOW, Start date: 01/18/21 16:57:00 CDT, Duration: 1 doses or times, Stop date: 01/19/21 6:14:00 CDT, BSA: 1.77 m2, 0 Lactated 2020-0 No 1,000 mL, Dannie pat Ringers IV 01-18 Rate: 75 l 1,000 mL 21:57: ml/hr, Duy 00 Infuse over: 13.3 hr, Route: IV, Dosing Weight 68.182 kg, Total Volume: 1,000, Priority: NOW, Start date: 01/18/21 16:57:00 CDT, Duration: 1 doses or times, Stop date: 01/19/21 6:14:00 CDT, BSA: 1.77 m2, 0 gabapentin 2020-0 No 300 mg, 6 Me moria 50 MG/ML 9-22 mL, Route: l Oral 19:00: PO, Duy Solution 00 Q8H-06, Dosing Weight 68.182, kg, Start date: 01/17/21 14:00:00 CDT, Duration: 30 day, Stop date: 02/16/21 6:00:00 CDT gabapentin 2020-0 No 300 mg, 6 Me moria 50 MG/ML 9-22 mL, Route: l Oral 19:00: PO, [place] Solution 00 Q8H-06, Dosing Weight 68.182, kg, Start date: 01/17/21 14:00:00 CDT, Duration: 30 day, Stop date: 02/16/21 6:00:00 CDT Lovenox 2020-0 No Notes: Memoria - (Same as: l 13:00: Lovenox) [place] 00 Lovenox No Notes: Memoria 01-16 (Same as: l 13:00: Lovenox) glycopyrrol No Route: IV, Memoria ate (ANES) 01-15 Drug form: l 19:26: INJ, ONCE, Stop date: 01/15/21 14:26:00 CDT neostigmine No Route: IV, Memoria (ANES) 01-15 Drug form: l 19:26: INJ, ONCE, Stop date: 01/15/21 14:26:00 CDT glycopyrrol No Route: IV, Memoria ate (ANES) 01-15 Drug form: l 19:26: INJ, ONCE, Stop date: 01/15/21 14:26:00 CDT neostigmine No Route: IV, Memoria (ANES) 01-15 Drug form: l 19:26: INJ, ONCE, Stop date: 01/15/21 14:26:00 CDT ondansetron No Route: IV, Memoria (ANES) 01-15 Drug form: l 19:20: INJ, ONCE, Stop date: 01/15/21 14:20:00 CDT ondansetron No Route: IV, Memoria (ANES) 01-15 Drug form: l 19:20: INJ, ONCE, Stop date: 01/15/21 14:20:00 CDT lidocaine No Route: IV, Me moria (ANES) 01-15 Drug form: l 18:50: INJ, ONCE, Stop date: 01/15/21 13:50:00 CDT propofol No [...] INJ, ONCE, Stop date: 01/15/21 13:50:00 CDT lidocaine No Route: IV, Me moria (ANES) 01-15 Drug form: l 18:50: INJ, ONCE, Stop date: 01/15/21 13:50:00 CDT propofol No [...] Memoria - (Same as: l 17:52: Sublimaze) Preservati ve free. Hydromorpho No Notes: Dannie pat ne 01-15 Same as l 17:52: Dilaudid Flumazenil No Notes: Memor ia - (Same as: l 17:52: Romazicon) Naloxone No Notes: Memoria - Same as l 17:52: Narcan Ondansetron No Notes: Dannie pat - (Same as: l 17:52: Zofran) MEDICATION WASTE Product Size: 4 mg Product Wasted: ___ mg Promethazin No Notes: Do M emoria e - not give l 17:52: IV push. (Same as: Phenergan) Fentanyl No Notes: Memoria 01-15 (Same as: l 17:52: Sublimaze) Preservati ve free. Hydromorpho No Notes: Dannie pat ne -20 Same as l 17:52: Dilaudid Flumazenil No Notes: Memor ia -20 (Same as: l 17:52: Romazicon) Naloxone No Notes: Memoria 01-15 Same as l 17:52: Narcan Ondansetron No Notes: Dannie pat -20 (Same as: l 17:52: Zofran) MEDICATION WASTE Product Size: 4 mg Product Wasted: ___ mg Promethazin No Notes: Do M emoria e -20 not give l 17:52: IV push. (Same as: Phenergan) D5W ,000 No 1,000 mL, Mem oria mL 9-20 Rate: 999 l 11:29: ml/hr, Infuse over: 1 hr, Route: IV, Dosing Weight 68.182 kg, Total Volume: 1,000, Priority: STAT, Start date: 01/15/21 6:29:00 CDT, Duration: 1 doses or times, Stop date: 01/15/21 7:28:00 CDT, BSA: 1.77 m2, 0 D5W 1,000 No 1,000 mL, Mem oria mL 9-20 Rate: 999 l 11:29: ml/hr, Infuse over: 1 hr, Route: IV, Dosing Weight 68.182 kg, Total Volume: 1,000, Priority: STAT, Start date: 01/15/21 6:29:00 CDT, Duration: 1 doses or times, Stop date: 01/15/21 7:28:00 CDT, BSA: 1.77 m2, 0 Vancomycin No 2000 mg: Me moria 9-19 infuse l 03:00: over 2.5 Duy 00 hours Vancomycin No 2000 mg: Me moria 9-19 infuse l 03:00: over 2.5 Duy 00 hours heparin No Notes: Memoria additive 9-19 Total l 25,000 unit 02:53: Concentrat [place] [14 00 ion = 50 unit/kg/hr] unit/ ml + Premix Total Diluent volume = Sodium 500 ml Chloride Send Med 0.45% 500 Request 2 mL hours prior to next bag heparin No Notes: Memoria additive 9-19 Total l 25,000 unit 02:53: Concentrat Duy [14 00 ion = 50 unit/kg/hr] unit/ ml + Premix Total Diluent volume = Sodium 500 ml Chloride Send Med 0.45% 500 Request 2 mL hours prior to next bag POLYETHYLEN No Notes: Dannie pat E GLYCOL 9-18 Dissolve l 3350 22:00: in 8 oz of Duy 00 water or juice. (Same as: Miralax) POLYETHYLEN No Notes: Dannie pat E GLYCOL 9-18 Dissolve l 3350 22:00: in 8 oz of [place] 00 water or juice. (Same as: Miralax) Tramadol No Notes: Not Mem oria 9-18 to exceed l 17:43: 400mg/day. [place] 00 (Same As: Ultram) Oxycodone No Notes: Memori a 9-18 (Same as: l 17:43: Roxicodone [place] 00 ) Tramadol No Notes: Not Mem oria 9-18 to exceed l 17:43: 400mg/day. Duy 00 (Same As: Ultram) Oxycodone No Notes: Memori a 9-18 (Same as: l 17:43: Roxicodone Duy 00 ) Kayexalate No Notes: Memor ia -18 (sodium l 16:23: polystyren Duy 00 e sulfonate 15 gm/60 ml RENETTA) (Same as: Kayexalate , SPS) Kayexalate No Notes: Memor ia 9-18 (sodium l 16:23: polystyren Duy 00 e sulfonate 15 gm/60 ml RENETTA) (Same as: Kayexalate , SPS) Vancomycin No 2000 mg: Me moria 9-18 infuse l 14:00: over 2.5 [place] 00 hours For adult patients only: Round to nearest 250 mg per Medical Staff approval MEDICATION WASTE Product Size: 1000 mg Product Wasted: ___ mg Vancomycin No 2000 mg: Me moria 9-18 infuse l 14:00: over 2.5 Duy 00 hours For adult patients only: Round to nearest 250 mg per Medical Staff approval MEDICATION WASTE Product Size: 1000 mg Product Wasted: ___ mg Vancomycin No Notes: Memor ia 9-18 Vancomycin l 11:42: Pharmacy Duy 58 Dosing Protocol PHARMAC Y USE ONLY Note: This is not a medication order. This is a consultati on order. Vancomycin No Notes: Memor ia 9-18 Vancomycin l 11:42: Pharmacy Duy 58 Dosing Protocol PHARMAC Y USE ONLY Note: This is not a medication order. This is a consultati on order. Unasyn No Notes: Memoria 9-18 Dosing l 05:00: based on [place] 00 Ampicillin component (Same as: Unasyn) Unasyn No Notes: Memoria 9-18 Dosing l 05:00: based on Duy 00 Ampicillin component (Same as: Unasyn) POLYETHYLEN No Notes: Dannie pat E GLYCOL 9-16 Dissolve l 3350 14:00: in 8 oz of Duy 00 water or juice. (Same as: Miralax) POLYETHYLEN No Notes: Dannie pat E GLYCOL 9-16 Dissolve l 3350 14:00: in 8 oz of Duy 00 water or juice. (Same as: Miralax) Kayexalate No Notes: Memor ia 9-16 (sodium l 08:15: polystyren [place] 00 e sulfonate 15 gm/60 ml RENETTA) Shake well before use. (Same as: Kayexalate , SPS) Kayexalate No Notes: Memor ia -16 (sodium l 08:15: polystyren Duy 00 e sulfonate 15 gm/60 ml RENETTA) Shake well before use. (Same as: Kayexalate , SPS) Lovenox No Notes: Memoria 9-15 (Same as: l 09:00: Lovenox) Lovenox No Notes: Memoria 9-15 (Same as: l 09:00: Lovenox) Methylpheni No Notes: Dannie pat date 01-09 (Same l 13:00: as:Ritalin ) Methylpheni No Notes: Dannie pat date 01-09 (Same l 13:00: as:Ritalin ) Aspirin No Notes: Memoria 9-13 Take with l 20:47: food. Aspirin No Notes: Memoria 9-13 Take with l 20:47: food. Acetaminoph No Notes: Max Memoria en 9-13 acetaminop l 17:00: hen 4000 Duy 00 mg/day (4 gm/day). (Same as: Tylenol Extra Strength) Valproate No Notes: Memori a 9-13 (Same As: l 17:00: Depakene) Hazardous Drug Group 3:Reproduc tive risk Hazardous Drug -- Refer to safe handling procedure PPE [facility] Acetaminoph No Notes: Max Memoria en 9-13 acetaminop l 17:00: hen 4000 Duy 00 mg/day (4 gm/day). (Same as: Tylenol Extra Strength) Valproate No Notes: Memori a 9-13 (Same As: l 17:00: Depakene) Hazardous Drug Group 3:Reproduc tive risk Hazardous Drug -- Refer to safe handling procedure PPE [facility] Docusate No Notes: Memoria Sodium 50 9-13 (Same as l MG / 14:00: Senokot-S) [place] sennosides, 00 Equiv. to LONG-TERM 8.6 MG [place] Oral Tablet e. clobazam No Notes: Memoria 9-13 (Same as: l 14:00: Onfi) reserved for Neurology use only POLYETHYLEN No Notes: Dannie pat E GLYCOL 9-13 Dissolve l 3350 14:00: in 8 oz of [place] 00 water or juice. (Same as: Miralax) Methylpheni No Notes: Dannie pat date 01-08 (Same l 14:00: as:Ritalin ) gabapentin No Notes: Memor ia 9-13 (Same as: l 14:00: Neurontin) Docusate No Notes: Memoria Sodium 50 13 (Same as l MG / 14:00: Senokot-S) sennosides, 00 Equiv. to LONG-TERM 8.6 MG [place] Oral Tablet e. clobazam No Notes: Memoria 9-13 (Same as: l 14:00: Onfi) reserved for Neurology use only POLYETHYLEN No Notes: Dannie pat E GLYCOL 9-13 Dissolve l 3350 14:00: in 8 oz of [place] 00 water or juice. (Same as: Miralax) Methylpheni No Notes: Dnanie pat date 01-08 (Same l 14:00: as:Ritalin ) gabapentin No Notes: Memor ia 13 (Same as: l 14:00: Neurontin) Methylpheni No Notes: Dannie pat date -11 (Same l 14:00: as:Ritalin ) Methylpheni No Notes: Dannie pat date 9-11 (Same l 14:00: as:Ritalin ) gabapentin No Notes: Memor ia 9-11 (Same as: l 13:00: Neurontin) gabapentin No Notes: Memor ia 9-11 (Same as: l 13:00: Neurontin) Robaxin No Notes: Memoria 9-11 (Same l 05:00: as:Robaxin ) Tramadol No 50 mg, Memoria 9-11 Route: PO, l 05:00: Drug form: [place] 00 TAB, Q6H, Dosing Weight 68.182, kg, Start date: 01/06/21 0:00:00 CDT, Duration: 30 day, Stop date: 02/04/21 18:00:00 CDT Robaxin No Notes: Memoria 9-11 (Same l 05:00: as:Robaxin ) Tramadol No 50 mg, Memoria 9-11 Route: PO, l 05:00: Drug form: Duy 00 TAB, Q6H, Dosing Weight 68.182, kg, Start date: 01/06/21 0:00:00 CDT, Duration: 30 day, Stop date: 02/04/21 18:00:00 CDT Naproxen 0 No 500 mg, Memori a 9-11 Route: GT, l 02:00: Q12H, Dosing Weight 68.182, kg, Start date: 01/05/21 21:00:00 CDT, Duration: 30 day, Stop date: 02/04/21 9:00:00 CDT Naproxen 0 No 500 mg, Memori a 9-11 Route: GT, l 02:00: Q12H, Dosing Weight 68.182, kg, Start date: 01/05/21 21:00:00 CDT, Duration: 30 day, Stop date: 02/04/21 9:00:00 CDT Tramadol No Notes: Not Mem oria 9-11 to exceed l 01:47: 400mg/day. (Same As: Ultram) Tramadol No Notes: Not Mem oria 9-11 to exceed l 01:47: 400mg/day. (Same As: Ultram) gabapentin No Notes: Memor ia 9-11 (Same as: l 00:00: Neurontin) gabapentin No Notes: Memor ia 9-11 (Same as: l 00:00: Neurontin) Isolyte S No Notes: Memori a PH-7.4 9-10 (Same as: l (Bolus) IV 23:16: Isolyte S He r[place] 00 PH7.4, Normosol-R PH 7.4, Plasma-Lyt e A ) Isolyte S No Notes: Memori a PH-7.4 9-10 (Same as: l (Bolus) IV 23:16: Isolyte S [place] 00 PH7.4, Normosol-R PH 7.4, Plasma-Lyt e A ) Robaxin No Notes: Memoria 9-10 (Same l 21:00: as:Robaxin [place] 00 ) Robaxin No Notes: Memoria 9-10 (Same l 21:00: as:Robaxin ) Aspirin No 325 mg, Memoria 9-10 Route: IA, l 18:00: Drug form: [place] 00 TAB, Q24H, Dosing Weight 68.182, kg, Start date: 01/05/21 13:00:00 CDT, Duration: 30 day, Stop date: 02/03/21 13:00:00 CDT, 0 Aspirin No 325 mg, Memoria 9-10 Route: IA, l 18:00: Drug form: [place] 00 TAB, Q24H, Dosing Weight 68.182, kg, Start date: 01/05/21 13:00:00 CDT, Duration: 30 day, Stop date: 02/03/21 13:00:00 CDT, 0 Aspirin 0 No Notes: Memoria 9-10 Take with l 15:00: food. Aspirin No Notes: Memoria 9-10 Take with l 15:00: food. Naproxen No Notes: Memoria 9-10 (Same as: l 14:58: Naprosyn) Duy 00 Take with food. Naproxen No Notes: Memoria 9-10 (Same as: l 14:58: Naprosyn) Take with food. Robaxin No Notes: Memoria 9-10 (Same l 13:00: as:Robaxin [place] 00 ) Robaxin No Notes: Memoria 9-10 (Same l 13:00: as:Robaxin Duy 00 ) gabapentin 2021-0 No Notes: Memor ia 9-10 (Same as: l 12:00: Neurontin) Aspirin 0 No 325 mg, Memoria 9-10 Route: PO, l 12:00: Q24H, Dosing Weight 68.182, kg, Start date: 01/05/21 7:00:00 CDT, Duration: 30 day, Stop date: 02/03/21 7:00:00 CDT gabapentin No Notes: Memor ia 9-10 (Same as: l 12:00: Neurontin) Aspirin 0 No 325 mg, Memoria 9-10 Route: PO, l 12:00: Q24H, Dosing Weight 68.182, kg, Start date: 01/05/21 7:00:00 CDT, Duration: 30 day, Stop date: 02/03/21 7:00:00 CDT Aspirin 2020-0 No 325 mg, Memoria 9-10 Route: PO, l 11:36: Drug form: Duy 00 TAB, Q24H, Dosing Weight 68.182, kg, Priority: NOW, Start date: 01/05/21 6:36:00 CDT, Duration: 30 day, Stop date: 02/03/21 6:36:00 CDT Aspirin 2020-0 No 325 mg, Memoria 9-10 Route: PO, l 11:36: Drug form: Duy 00 TAB, Q24H, Dosing Weight 68.182, kg, Priority: NOW, Start date: 01/05/21 6:36:00 CDT, Duration: 30 day, Stop date: 02/03/21 6:36:00 CDT ondansetron No Route: IV, Memoria (ANES) 01-04 Drug form: l 23:46: INJ, ONCE, Stop date: 01/04/21 18:46:00 CDT ondansetron No Route: IV, Memoria (ANES) 01-04 Drug form: l 23:46: INJ, ONCE, Stop date: 01/04/21 18:46:00 CDT rocuronium No Route: IV, M emoria (ANES) 01-04 Drug form: l 22:24: INJ, ONCE, [place] Stop date: 01/04/21 17:24:00 CDT rocuronium No Route: IV, M carlria (ANES) 01-04 Drug form: l 22:24: INJ, ONCE, [place] Stop date: 01/04/21 17:24:00 CDT propofol No Route: IV, Mem oria (ANES) 01-04 Drug form: l 21:43: INJ, ONCE, [place] 00 Stop date: 01/04/21 16:43:00 CDT propofol No Route: IV, Mem oria (ANES) 01-04 Drug form: l 21:43: INJ, ONCE, Duy 00 Stop date: 01/04/21 16:43:00 CDT Lactated No Route: IV, Mem oria Ringers 01-04 Total l Injection 21:37: Volume: Brianna nn IV (ANES) 00 1,000, 1000 mL Start date: 01/04/21 16:37:00 CDT, Stop date: 01/04/21 17:37:00 CDT Lactated No Route: IV, Mem oria Ringers 01-04 Total l Injection 21:37: Volume: Brianna nn IV (ANES) 00 1,000, 1000 mL Start date: 01/04/21 16:37:00 CDT, Stop date: 01/04/21 17:37:00 CDT acetaminoph No Route: IV, Memoria en (ANES) 01-04 Drug form: l 10 mg 21:10: INJ, Start Scottie n 00 date: 01/04/21 16:10:00 CDT, Stop date: 01/04/21 17:10:00 CDT acetaminoph No Route: IV, Memoria en (ANES) 01-04 Drug form: l 10 mg 21:10: INJ, Start Scottie n 00 date: 01/04/21 16:10:00 CDT, Stop date: 01/04/21 17:10:00 CDT heparin No Notes: Memoria additive 01-04 Total l 25,000 unit 20:34: Concentrat Duy [14 00 ion = 50 unit/kg/hr] unit/ ml + Premix Total Diluent volume = Sodium 500 ml Chloride Send Med 0.45% 500 Request 2 mL hours prior to next bag heparin No Notes: Memoria additive 01-04 Total l 25,000 unit 20:34: Concentrat Duy [14 00 ion = 50 [...] 02/03/21 15:17:00 CDT, BSA: 1.77 m2 Heparin 60 No Pharmacy Mem oria unit/kg [...] date: 02/03/21 15:17:00 CDT, 30 day heparin 2020-0 No 500 mL, Memoria additive 01-04 Rate: l 25,000 unit 20:18: 16.36 Brianna nn [12 00 ml/hr, unit/kg/hr] Infuse + Premix over: 30.6 Diluent hr, Route: Sodium IV, Dosing Chloride Weight 0.45% 500 68.182 kg, mL Total Volume: 500 mL, Start date: 01/04/21 15:18:00 CDT, Duration: 30 day, Stop date: 02/03/21 15:17:00 CDT, BSA: 1.77 m2 Heparin - 2020-0 No 3,600 Memoria one time 01-04 unit, l bolus for 20:17: Route: Scottie n ACS 00 IVP, Drug form: INJ, ONCE, Dosing Weight 68.182, kg, Priority: STAT, Start date: 01/04/21 15:17:00 CDT, Stop date: 01/04/21 15:17:00 CDT Heparin - 2020-0 No 3,600 Memoria one time 01-04 unit, l bolus for 20:17: Route: Scottie n ACS 00 IVP, Drug form: INJ, ONCE, Dosing Weight 68.182, kg, Priority: STAT, Start date: 01/04/21 15:17:00 CDT, Stop date: 01/04/21 15:17:00 CDT Sodium 2020-0 No Route: IV, Memor ia Chloride 01-04 Total l 0.9% IV 18:50: Volume: [place] (ANES) 500 00 500, Start mL date: 01/04/21 13:50:00 CDT, Stop date: 01/04/21 14:50:00 CDT Sodium 2020-0 No Route: IV, Memor ia Chloride 01-04 Total l 0.9% IV 18:50: Volume: Duy (ANES) 500 00 500, Start mL date: 01/04/21 13:50:00 CDT, Stop date: 01/04/21 14:50:00 CDT dexamethaso 2020-0 No Route: IV, Memoria ne (ANES) 01-04 Drug form: l 18:33: INJ, ONCE, Stop date: 01/04/21 13:33:00 CDT dexamethaso 2020-0 No Route: IV, Memoria ne (ANES) 01-04 Drug form: l 18:33: INJ, ONCE, Stop date: 01/04/21 13:33:00 CDT fentaNYL 2020-0 No Route: IV, Mem oria (ANES) 01-04 Drug form: l 18:18: INJ, ONCE, Stop date: 01/04/21 13:18:00 CDT fentaNYL 2020-0 No Route: IV, Mem oria (ANES) 01-04 Drug form: l 18:18: INJ, ONCE, Stop date: 01/04/21 13:18:00 CDT midazolam 2020-0 No Route: IV, Me moria (ANES) 01-04 Drug form: l 18:13: SOLN, [place] ONCE, Stop date: 01/04/21 13:13:00 CDT phenylephri 2020-0 No Route: IV, Memoria ne (ANES) 01-04 Drug form: l 18:13: INJ, ONCE, Stop date: 01/04/21 13:13:00 CDT midazolam 2020-0 No Route: IV, Me moria (ANES) 01-04 Drug form: l 18:13: SOLN, [place] 00 ONCE, Stop date: 01/04/21 13:13:00 CDT phenylephri 2020-0 No Route: IV, Memoria ne (ANES) 01-04 Drug form: l 18:13: INJ, ONCE, Stop date: 01/04/21 13:13:00 CDT ceFAZolin 2020-0 No Route: IV, Me moria (ANES) 01-04 Drug form: l 17:47: INJ, ONCE, Stop date: 01/04/21 12:47:00 CDT ceFAZolin 2020-0 No Route: IV, Me moria (ANES) 01-04 Drug form: l 17:47: INJ, ONCE, Duy 00 Stop date: 01/04/21 12:47:00 CDT heparin No Route: IV, Dannie pat (ANES) 01-04 Dosing l [address] unit 17:30: Weight Brianna nn + Sodium 00 68.2 kg, Chloride Total 0.45% IV Volume: (ANES) 500 500, Start mL date: 01/04/21 12:30:00 CDT, Stop date: 01/04/21 13:30:00 CDT heparin No Route: IV, Dannie pat (ANES) 01-04 Dosing l 99927 unit 17:30: Weight Brianna nn + Sodium 00 68.2 kg, Chloride Total 0.45% IV Volume: (ANES) 500 500, Start mL date: 01/04/21 12:30:00 CDT, Stop date: 01/04/21 13:30:00 CDT ocular No Notes: Memoria lubricant 01-04 (Same as: l 17:00: Lacri-Lube Duy 00 , Puralube, Duratears Naturale, Artificial Tears, and Tears Again ) ocular No Notes: Memoria lubricant 01-04 (Same as: l 17:00: Lacri-Lube [place] 00 , Puralube, Duratears Naturale, Artificial Tears, and Tears Again ) Isolyte S No Route: IV, Me moria PH 7.4 01-04 Total l (ANES) 1000 16:39: Volume: Her [place] mL 00 1,000, Start date: 01/04/21 11:39:00 CDT, Stop date: 01/04/21 12:39:00 CDT Isolyte S No Route: IV, Me moria PH 7.4 01-04 Total l (ANES) 1000 16:39: Volume: Her [place] mL 00 1,000, Start date: 01/04/21 11:39:00 CDT, Stop date: 01/04/21 12:39:00 CDT Ancef + No Notes: Memoria sterile 01-04 (Same As: l water 10 mL 16:00: Ancef, Herm shama 00 Kefzol) MEDICATION WASTE Product Size: 1000 mg Product Wasted: ___ mg Ancef + No Notes: Memoria sterile 01-04 (Same As: l water 10 mL 16:00: Ancef, Herm shama 00 Kefzol) MEDICATION WASTE Product Size: 1000 mg Product Wasted: ___ mg Docusate No Notes: Memoria Sodium 50 -09 (Same as l MG / 14:00: Senokot-S) [place] sennosides, 00 Equiv. to LONG-TERM 8.6 MG [place] Oral Tablet e. POLYETHYLEN No Notes: Dannie pat E GLYCOL - Dissolve l 3350 14:00: in 8 oz of [place] 00 water or juice. (Same as: Miralax) Famotidine No Notes: Memor ia 01-04 (Same as: l 14:00: Pepcid) Duy 00 Can be dilute in 5-10cc NS IVP: Slow IV push over at least 2 minutes. chlorhexidi No Notes: Dannie pat ne 01-04 (Same As: l gluconate 14:00: Peridex) Herm shama 1.2 MG/ML 00 Mouthwash Docusate No Notes: Memoria Sodium 50 01-04 (Same as l MG / 14:00: Senokot-S) [place] sennosides, 00 Equiv. to LONG-TERM 8.6 MG [place] Oral Tablet e. POLYETHYLEN No Notes: Dannie pat E GLYCOL - Dissolve l 3350 14:00: in 8 oz of Duy 00 water or juice. (Same as: Miralax) Famotidine No Notes: Memor ia 01-04 (Same as: l 14:00: Pepcid) [place] 00 Can be dilute in 5-10cc NS [...] Herm shama 1.2 MG/ML 00 Mouthwash propofol No Notes: If M emoria mg/mL 01-04 Diprivan - l (Titrate.) 12:04: change Brianna nn IV 1,000 mg 00 bottle & tubing every 12 hr Per state nursing law propofol can only be given by a nurse if patient is intubated or being intubated (unless the nurse is a LOGISTICS SUPPORT). Same as: Diprivan propofol No Notes: If M emoria mg/mL 01-04 Diprivan - l (Titrate.) 12:04: change Brianna nn IV 1,000 mg 00 bottle & tubing every 12 hr Per state nursing law propofol can only be given by a nurse if patient is intubated or being intubated (unless the nurse is a LOGISTICS SUPPORT). Same as: Diprivan Insulin No Notes: Memoria regular 01-04 (Same as: l 11:45: Humulin R) [place] 00 Roll in palms of hands gently; Do not shake vigorously . WASTE: F/P - Black; E - Municipal Trash Bin Stable for 31 days at room temperatur e Expires in days from ____Date Dextrose No 12.5 gm, Memor ia 50% Syringe 01-04 25 mL, l (D50W) 11:45: Route: Duy 00 IVP, Drug Form: INJ, Dosing Weight 68.182, kg, PRN, PRN Abnormal Lab Result, Start date: 01/04/21 6:45:00 CDT, Duration: 30 day, Stop date: 02/03/21 6:44:00 CDT, For FSBG 40 mg/dL - 60 mg/dL, 0 Insulin No Notes: Memoria regular 01-04 (Same as: l 11:45: Humulin R) Duy 00 Roll in palms of hands gently; Do not shake vigorously . WASTE: F/P - Black; E - Municipal Trash Bin Stable for 31 days at room temperatur e Expires in days from ____Date Dextrose 2020- No 12.5 gm, Memor ia 50% Syringe [...] INJ, ONCE, Stop date: 01/04/21 5:26:00 CDT dexmedetomi No Route: IV, Memoria dine (ANES) 01-04 Drug form: l 10:26: INJ, ONCE, Stop date: 01/04/21 5:26:00 CDT Cefazolin No Notes: Memori a 01-04 (Same As: l 10:10: Ancef, Kefzol) MEDICATION WASTE Product Size: 1000 mg Product Wasted: ___ mg Cefazolin No Notes: Memori a 01-04 (Same As: l 10:10: Ancef, Kefzol) MEDICATION WASTE Product Size: 1000 mg Product Wasted: ___ mg ondansetron No Route: IV, Memoria (ANES) 01-04 Drug form: l 09:49: INJ, ONCE, Stop date: 01/04/21 4:49:00 CDT ondansetron No Route: IV, Memoria (ANES) 01-04 Drug form: l 09:49: INJ, ONCE, Stop date: 01/04/21 4:49:00 CDT Ofirmev No Notes: Memoria 01-04 Infuse l 06:50: over 15 [place] 00 minutes Do not exceed 4gm/day of acetaminop hen MEDICATION WASTE Product Size: 1000 mg Product Wasted: ___ mg Ofirmev No Notes: Memoria 01-04 Infuse l 06:50: over 15 [place] 00 minutes Do not exceed 4gm/day of acetaminop hen MEDICATION WASTE Product Size: 1000 mg Product Wasted: ___ mg propofol No Route: IV, Mem oria (ANES) 01-04 Drug form: l 03:37: INJ, ONCE, Stop date: 01/03/21 22:37:00 CDT propofol No Route: IV, Mem oria (ANES) 01-04 Drug form: l 03:37: INJ, ONCE, Stop date: 01/03/21 22:37:00 CDT heparin No Route: IV, Dannie pat (ANES) 01-04 Dosing l [address]220 unit 02:14: Weight Brianna nn + Sodium 00 68.2 kg, Chloride Total 0.45% IV Volume: (ANES) 500 500, Start mL date: 01/03/21 21:14:00 CDT, Stop date: 01/03/21 22:14:00 CDT heparin No Route: IV, Dannie pat (ANES) 01-04 Dosing l 71035 unit 02:14: Weight Brianna nn + Sodium 00 68.2 kg, Chloride Total 0.45% IV Volume: (ANES) 500 500, Start mL date: 01/03/21 21:14:00 CDT, Stop date: 01/03/21 22:14:00 CDT phenylephri No Route: IV, Memoria ne (ANES) 01-04 Drug form: l 00:03: INJ, ONCE, Stop date: 01/03/21 19:03:00 CDT phenylephri No Route: IV, Memoria ne (ANES) 01-04 Drug form: l 00:03: INJ, ONCE, Stop date: 01/03/21 19:03:00 CDT ceFAZolin No Route: IV, Me moria (ANES) 01-03 Drug form: l 23:58: INJ, ONCE, Stop date: 01/03/21 18:58:00 CDT ceFAZolin No Route: IV, moria (ANES) 01-03 Drug form: l 23:58: INJ, ONCE, Duy 00 Stop date: 01/03/21 18:58:00 CDT heparin No Notes: Memoria additive 01-03 Total l 25,000 unit 23:26: Concentrat Duy [ 00 ion = 50 unit/kg/hr] unit/ ml + Premix Total Diluent volume = Sodium 500 ml Chloride Send Med 0.45% 500 Request 2 mL hours prior to next bag heparin No Notes: Memoria additive 01-03 Total [...] 18:21:00 CDT, Stop date: 01/03/21 19:21:00 CDT acetaminoph No Route: IV, Memoria en (ANES) 01-03 Drug form: l 10 mg 23:21: INJ, Start Scottie n 00 date: 01/03/21 18:21:00 CDT, Stop date: 01/03/21 19:21:00 CDT hydromorpho No Route: IV, Memoria ne (ANES) 01-03 Drug form: l 23:06: INJ, ONCE, Stop date: 01/03/21 18:06:00 CDT hydromorpho No Route: IV, Memoria ne (ANES) 01-03 Drug form: l 23:06: INJ, ONCE, Duy 00 Stop date: 01/03/21 18:06:00 CDT Hydralazine No Notes: Dannie pat 01-03 (Same as: l 21:59: Apresoline ) Push over 5 minutes Labetalol No 10 mg, 2 Dannie pat 9-08 mL, Route: l 21:59: IVP, Drug form: INJ, Q5Min, Dosing Weight 68.182, kg, PRN Elevated BP, Start date: 01/03/21 16:59:00 CDT, Duration: 5 doses or times, Stop date: 01/04/21 0:00:00 CDT, 0 Oxycodone No Notes: Memori a Hydrochlori 9-08 (Same as: l de 5 MG 21:59: Roxicodone Herm shama Oral Tablet ) Fentanyl No Notes: Memoria 908 (Same as: l 21:59: Sublimaze) Preservati ve free. Hydromorpho No Notes: Dannie pat ne -08 Same as l 21:59: Dilaudid Flumazenil No Notes: Memor ia -08 (Same as: l 21:59: Romazicon) Naloxone No Notes: Memoria 9-08 Same as l 21:59: Narcan Ondansetron No Notes: Dannie pat 9-08 (Same as: l 21:59: Zofran) MEDICATION WASTE Product Size: 4 mg Product Wasted: ___ mg Hydralazine No Notes: Dannie pat 9-08 (Same as: l 21:59: Apresoline Duy ) Push over 5 minutes Labetalol No 10 mg, 2 Dannie pat 9-08 mL, Route: l 21:59: IVP, Drug [place] 00 form: INJ, Q5Min, Dosing Weight 68.182, kg, PRN Elevated BP, Start date: 01/03/21 16:59:00 CDT, Duration: 5 doses or times, Stop date: 01/04/21 0:00:00 CDT, 0 Oxycodone No Notes: Memori a Hydrochlori 9-08 (Same as: l de 5 MG 21:59: Roxicodone Herm shama Oral Tablet ) Fentanyl No Notes: Memoria 9-08 (Same as: l 21:59: Sublimaze) Preservati ve free. Hydromorpho No Notes: Dannie pat ne [...] INJ, ONCE, Stop date: 01/03/21 10:23:00 CDT hydromorpho No Route: IV, Memoria ne (ANES) 01-03 Drug form: l 15:23: INJ, ONCE, Stop date: 01/03/21 10:23:00 CDT fentaNYL No Route: IV, Mem oria (ANES) 01-03 Drug form: l 15:07: INJ, ONCE, Stop date: 01/03/21 10:07:00 CDT phenylephri No Route: IV, Memoria ne (ANES) 01-03 Drug form: l 15:07: INJ, ONCE, Stop date: 01/03/21 10:07:00 CDT fentaNYL No Route: IV, Mem oria (ANES) 01-03 Drug form: l 15:07: INJ, ONCE, Stop date: 01/03/21 10:07:00 CDT phenylephri No Route: IV, Memoria ne (ANES) 01-03 Drug form: l 15:07: INJ, ONCE, Stop date: 01/03/21 10:07:00 CDT midazolam No Route: IV, Me moria (ANES) 01-03 Drug form: l 14:57: SOLN, [place] ONCE, Stop date: 01/03/21 9:57:00 CDT lidocaine 2020-0 No Route: IV, Me moria (ANES) 01-03 Drug form: l 14:57: INJ, ONCE, Stop date: 01/03/21 9:57:00 CDT propofol 2020-0 No Route: IV, Mem oria (ANES) 01-03 Drug form: l 14:57: INJ, ONCE, Stop date: 01/03/21 9:57:00 CDT succinylcho 0 No Route: IV, Memoria line (ANES) 01-03 Drug form: l 14:57: INJ, ONCE, Stop date: 01/03/21 9:57:00 CDT midazolam 2020-0 No Route: IV, Me moria (ANES) 01-03 Drug form: l 14:57: SOLN, ONCE, Stop date: 01/03/21 9:57:00 CDT lidocaine 2020-0 No Route: IV, Me moria (ANES) 01-03 Drug form: l 14:57: INJ, ONCE, Stop date: 01/03/21 9:57:00 CDT propofol 2020-0 No Route: IV, Mem oria (ANES) 01-03 Drug form: l 14:57: INJ, ONCE, Stop date: 01/03/21 9:57:00 CDT succinylcho 0 No Route: IV, Memoria line (ANES) 01-03 Drug form: l 14:57: INJ, ONCE, Stop date: 01/03/21 9:57:00 CDT Sodium 2020-0 No Route: IV, Memor ia Chloride 01-03 Total l 0.9% IV 14:50: Volume: Duy (ANES) 500 00 500, Start mL date: 01/03/21 9:50:00 CDT, Stop date: 01/03/21 10:50:00 CDT dexmedetomi 0 No Route: IV, Memoria dine (ANES) 01-03 Drug form: l 200 14:50: INJ, Start Duy microgram 00 date: 01/03/21 9:50:00 CDT, Stop date: 01/03/21 10:50:00 CDT Sodium 2020-0 No Route: IV, Memor ia Chloride 01-03 Total l 0.9% IV 14:50: Volume: [place] (ANES) 500 00 500, Start mL date: 01/03/21 9:50:00 CDT, Stop date: 01/03/21 10:50:00 CDT dexmedetomi 0 No Route: IV, Memoria dine (ANES) 01-03 Drug form: l 200 14:50: INJ, Start [place] microgram date: 01/03/21 9:50:00 CDT, Stop date: 01/03/21 10:50:00 CDT ceFAZolin 0 No Route: IV, Me moria (ANES) 01-03 Drug form: l 14:31: INJ, ONCE, Duy Stop date: 01/03/21 9:31:00 CDT ceFAZolin 2020-0 No Route: IV, Me moria (ANES) 01-03 Drug form: l 14:31: INJ, ONCE, [place] 00 Stop date: 01/03/21 9:31:00 CDT heparin 2020-0 No Notes: Memoria additive 01-03 Total l 25,000 unit 14:05: Concentrat Duy [700 00 ion = 50 unit/hr] + unit/ ml Premix Total Diluent volume = Sodium 500 ml Chloride Send Med 0.45% 500 Request 2 mL hours prior to next bag heparin 2020-0 No Notes: Memoria additive 01-03 Total l 25,000 unit 14:05: Concentrat Duy [700 00 ion = 50 unit/hr] + unit/ ml Premix Total Diluent volume = Sodium 500 ml Chloride Send Med 0.45% 500 Request 2 mL hours prior to next bag dexamethaso 0 No Route: IV, Memoria ne (ANES) 01-03 Drug form: l 14:01: INJ, ONCE, [place] Stop date: 01/03/21 9:01:00 CDT dexamethaso 2020-0 No Route: IV, Memoria ne (ANES) 01-03 Drug form: l 14:01: INJ, ONCE, Duy 00 Stop date: 01/03/21 9:01:00 CDT Lactated No Route: IV, Mem oria Ringers 9-08 Total l Injection 14:00: Volume: Brianna nn IV (ANES) 00 1,000, 1000 mL Start date: 01/03/21 9:00:00 CDT, Stop date: 01/03/21 10:00:00 CDT Lactated No Route: IV, Mem oria Ringers 9-08 Total l Injection 14:00: Volume: Brianna nn IV (ANES) 00 1,000, 1000 mL Start date: 01/03/21 9:00:00 CDT, Stop date: 01/03/21 10:00:00 CDT Lactated No Route: IV, Mem oria Ringers 9-08 Total l Injection 12:45: Volume: Brianna nn IV (ANES) 00 1,000, 1000 mL Start date: 01/03/21 7:45:00 CDT, Stop date: 01/03/21 8:45:00 CDT Lactated No Route: IV, Mem oria Ringers 9-08 Total l Injection 12:45: Volume: Brianna nn IV (ANES) 00 1,000, 1000 mL Start date: 01/03/21 7:45:00 CDT, Stop date: 01/03/21 8:45:00 CDT Isolyte S No Notes: Memori a PH 7.4 9- (Same as: l 1,000 mL 05:01: Isolyte S Herm shama 00 PH7.4, Normosol-R PH 7.4, Plasma-Lyt e A ) Isolyte S No Notes: Memori a PH 7.4 - (Same as: l 1,000 mL 05:01: Isolyte S Herm shama 00 PH7.4, Normosol-R PH 7.4, Plasma-Lyt e A ) clobazam No Notes: Memoria 01-02 (Same as: l 14:00: Onfi) reserved for Neurology use only clobazam No Notes: Memoria 01-02 (Same as: l 14:00: Onfi) reserved for Neurology use only NS (Bolus) No 1,000 mL, Me moria IV 01-01 1,000 l 13:17: ml/hr, Duy 00 Infuse Over: 1 hr, Route: IV, 1,000, Drug form: INJ, ONCE, Priority: STAT, Dosing Weight 68.182 kg, Start date: 01/01/21 8:17:00 CDT, Stop date: 01/01/21 8:17:00 CDT, 0 NS (Bolus) No 1,000 mL, Me moria IV 01-01 1,000 l 13:17: ml/hr, [place] 00 Infuse Over: 1 hr, Route: IV, 1,000, Drug form: INJ, ONCE, Priority: STAT, Dosing Weight 68.182 kg, Start date: 01/01/21 8:17:00 CDT, Stop date: 01/01/21 8:17:00 CDT, 0 Petrolatum No Notes: Memor ia 0.41 MG/MG 12-30 (Same as: l Topical 14:31: Aquaphor) Brianna nn Ointment 00 [Aquaphor] Petrolatum No Notes: Memor ia 0.41 MG/MG 9-04 (Same as: l Topical 14:31: Aquaphor) Brianna nn Ointment 00 [Aquaphor] Aquaphor No Notes: Memoria 9-04 (Same as: l 12:52: Aquaphor) [place] Aquaphor No Notes: Memoria 9-04 (Same as: l 12:52: Aquaphor) [place] Potassium No Notes: Memori a Chloride 9-02 (Same as: l 13:32: Potassium [place] 00 Chloride) Potassium No Notes: Memori a Chloride 9-02 (Same as: l 13:32: Potassium [place] 00 Chloride) Potassium No Notes: Memori a Chloride 9-01 (Same as: l 13:06: Potassium [place] 00 Chloride) Potassium No Notes: Memori a Chloride 9-01 (Same as: l 13:06: Potassium Duy 00 Chloride) Dulcolax No Notes: Memoria Laxative 12-27 (Same As: l 02:15: Dulcolax, Bisco-Lax) Dulcolax No Notes: Memoria Laxative 12-27 (Same As: l 02:15: Dulcolax, Bisco-Lax) PlasmaLyte No Notes: Memor ia A PH-7.4 12-27 (Same as: l 1,000 mL 00:47: Isolyte S Herm shama 00 PH7.4, Normosol-R PH 7.4, Plasma-Lyt e A ) PlasmaLyte No Notes: Memor ia A PH-7.4 12-27 (Same as: l 1,000 mL 00:47: Isolyte S Herm shama 00 PH7.4, Normosol-R PH 7.4, Plasma-Lyt e A ) esmolol No Route: IV, Dannie pat (ANES) 12-25 Drug form: l 18:14: INJ, ONCE, Stop date: 12/25/20 13:14:00 CDT esmolol No Route: IV, Dannie pat (ANES) 12-25 Drug form: l 18:14: INJ, ONCE Stop date: 12/25/20 13:14:00 CDT ondansetron No Route: IV, Memoria (ANES) 12-25 Drug form: l 18:09: INJ, ONCE, Stop date: 12/25/20 13:09:00 CDT glycopyrrol No Route: IV, Memoria ate (ANES) 12-25 Drug form: l 18:09: INJ, ONCE, Stop date: 12/25/20 13:09:00 CDT neostigmine No Route: IV, Memoria (ANES) 12-25 Drug form: l 18:09: INJ, ONCE, Stop date: 12/25/20 13:09:00 CDT ondansetron No Route: IV, Memoria (ANES) 12-25 Drug form: l 18:09: INJ, ONCE, Stop date: 12/25/20 13:09:00 CDT glycopyrrol No Route: IV, Memoria ate (ANES) 12-25 Drug form: l 18:09: INJ, ONCE, [place] Stop date: 12/25/20 13:09:00 CDT neostigmine No Route: IV, Memoria (ANES) 12-25 Drug form: l 18:09: INJ, ONCE, [place] Stop date: 12/25/20 13:09:00 CDT Oxycodone No Notes: Memori a Hydrochlori 8-30 (Same as: l de 5 MG 16:31: Roxicodone Herm shama Oral Tablet ) Hydromorpho No Notes: Dannie pat ne 30 Same as l 16:31: Dilaudid Flumazenil No Notes: Memor ia 830 (Same as: l 16:31: Romazicon) Naloxone No Notes: Memoria 830 Same as l 16:31: Narcan Ondansetron No Notes: Dannie pat 8-30 (Same as: l 16:31: Zofran) Duy 00 MEDICATION WASTE Product Size: 4 mg Product Wasted: ___ mg Oxycodone No Notes: Memori a Hydrochlori -30 (Same as: l de 5 MG 16:31: Roxicodone Herm shama Oral Tablet ) Hydromorpho No Notes: Dannie pat ne 830 Same as l 16:31: Dilaudid [place] 00 Flumazenil No Notes: Memor ia 8-30 (Same as: l 16:31: Romazicon) [place] 00 Naloxone No Notes: Memoria 8-30 Same as l 16:31: Narcan Ondansetron No Notes: Dannie pat 8-30 (Same as: l 16:31: Zofran) [place] 00 MEDICATION WASTE Product Size: 4 mg Product Wasted: ___ mg acetaminoph No Route: IV, Memoria en (ANES) 8-30 Drug form: l 10 mg 16:10: INJ, Start Scottie n date: 12/25/20 11:10:00 CDT, Stop date: 12/25/20 12:10:00 CDT acetaminoph 2020-0 No Route: IV, Memoria en (ANES) 8-30 Drug form: l 10 mg 16:10: INJ, Start date: 12/25/20 11:10:00 CDT, Stop date: 12/25/20 12:10:00 CDT phenylephri 2020-0 No Route: IV, Memoria ne (ANES) 8-30 Drug form: l 16:07: INJ, ONCE, Stop date: 12/25/20 11:07:00 CDT phenylephri 2020-0 No Route: IV, Memoria ne (ANES) 8-30 Drug form: l 16:07: INJ, ONCE, Stop date: 12/25/20 11:07:00 CDT propofol 2020-0 No Route: IV, Mem oria (ANES) 8- Drug form: l 15:17: INJ, ONCE, Stop date: 12/25/20 10:17:00 CDT succinylcho 2020-0 No Route: IV, Memoria line (ANES) 8-30 Drug form: l 15:17: INJ, ONCE, Stop date: 12/25/20 10:17:00 CDT fentaNYL 2020-0 No Route: IV, Mem oria (ANES) 8-30 Drug form: l 15:17: INJ, ONCE, Stop date: 12/25/20 10:17:00 CDT propofol 2020-0 No Route: IV, Mem oria (ANES) 8-30 Drug form: l 15:17: INJ, ONCE, Stop date: 12/25/20 10:17:00 CDT succinylcho 2020-0 No Route: IV, Memoria line (ANES) 8-30 Drug form: l 15:17: INJ, ONCE, Stop date: 12/25/20 10:17:00 CDT fentaNYL 2020-0 No Route: IV, Mem oria (ANES) 8-30 Drug form: l 15:17: INJ, ONCE, Stop date: 12/25/20 10:17:00 CDT rocuronium 2020-0 No Route: IV, M emoria (ANES) 12-25 Drug form: l 15:06: INJ, ONCE, Stop date: 12/25/20 10:06:00 CDT ceFAZolin 2020-0 No Route: IV, Me moria (ANES) 12-25 Drug form: l 15:06: INJ, ONCE, Stop date: 12/25/20 10:06:00 CDT hydrocortis 2020-0 No Route: IV, Memoria one (ANES) 12-25 Drug form: l 15:06: INJ, ONCE, Stop date: 12/25/20 10:06:00 CDT phenylephri 2020-0 No Route: IV, Memoria ne (ANES) 12-25 Drug form: l 15:06: INJ, ONCE, Stop date: 12/25/20 10:06:00 CDT rocuronium 2020-0 No Route: IV, M emoria (ANES) 12-25 Drug form: l 15:06: INJ, ONCE, Stop date: 12/25/20 10:06:00 CDT ceFAZolin 2020-0 No Route: IV, Me moria (ANES) 12-25 Drug form: l 15:06: INJ, ONCE, Stop date: 12/25/20 10:06:00 CDT hydrocortis 2020-0 No Route: IV, Memoria one (ANES) 12-25 Drug form: l 15:06: INJ, ONCE, Stop date: 12/25/20 10:06:00 CDT phenylephri 2020-0 No Route: IV, Memoria ne (ANES) 12-25 Drug form: l 15:06: INJ, ONCE, Stop date: 12/25/20 10:06:00 CDT Isolyte S 2020-0 No Route: IV, Me moria PH 7.4 8- Total l (ANES) 500 15:00: Volume: Herm shama mL 500, Start date: 12/25/20 10:00:00 CDT, Stop date: 12/25/20 11:00:00 CDT Isolyte S No Route: IV, Me moria PH 7.4 8-30 Total l (ANES) 500 15:00: Volume: Herm shama mL 00 500, Start date: 12/25/20 10:00:00 CDT, Stop date: 12/25/20 11:00:00 CDT midazolam No Route: IV, Me moria (ANES) 8-30 Drug form: l 14:40: SOLN, Duy 00 ONCE, Stop date: 12/25/20 9:40:00 CDT midazolam No Route: IV, Me moria (ANES) 8-30 Drug form: l 14:40: SOLN, Duy 00 ONCE, Stop date: 12/25/20 9:40:00 CDT Sodium No Route: IV, Memor ia Chloride 8-30 Drug form: l 0.9% IV 14:30: INJ, Start Herm shama (ANES) 99 00 date: mL + 12/25/20 phenylephri 9:30:00 ne (ANES) CDT, Stop 100 date: microgram 12/25/20 10:30:00 CDT Sodium No Route: IV, Memor ia Chloride 8-30 Drug form: l 0.9% IV 14:30: INJ, Start Herm shama (ANES) 99 00 date: mL + 12/25/20 phenylephri 9:30:00 ne (ANES) CDT, Stop 100 date: microgram 12/25/20 10:30:00 CDT Blistex No Notes: Memoria topical 8-28 Same as: l ointment 22:00: Blistex Scottie n 00 Blistex No Notes: Memoria topical 8-28 Same as: l ointment 22:00: Blistex Scottie n 00 Valproate No Notes: Memori a 8-28 (Same As: l 14:00: Depakene) Hazardous Drug Group 3:Reproduc tive risk Hazardous Drug -- Refer to safe handling procedure PPE Matrix Valproate No Notes: Memori a 8-28 (Same As: l 14:00: Depakene) Hazardous Drug Group 3:Reproduc tive risk Hazardous Drug -- Refer to safe handling procedure PPE Matrix PlasmaLyte No Notes: Memor ia A PH-7.4 8- (Same as: l 1,000 mL 09:45: Isolyte S Herm shama 00 PH7.4, Normosol-R PH 7.4, Plasma-Lyt e A ) PlasmaLyte No Notes: Memor ia A PH-7.4 8-28 (Same as: l 1,000 mL 09:45: Isolyte S Herm shama 00 PH7.4, Normosol-R PH 7.4, Plasma-Lyt e A ) Unasyn No Notes: Memoria 8- Dosing l 01:00: based on Ampicillin component (Same as: Unasyn) Unasyn No Notes: Memoria 8- Dosing l 01:00: based on Ampicillin component (Same as: Unasyn) vasopressin No Route: IV, Memoria (ANES) 12-22 Drug form: l 23:44: INJ, ONCE, Stop date: 12/22/20 18:44:00 CDT vasopressin No Route: IV, Memoria (ANES) 12-22 Drug form: l 23:44: INJ, ONCE, Stop date: 12/22/20 18:44:00 CDT glycopyrrol No Route: IV, Memoria ate (ANES) 12-22 Drug form: l 23:34: INJ, ONCE, Stop date: 12/22/20 18:34:00 CDT neostigmine No Route: IV, Memoria (ANES) 12-22 Drug form: l 23:34: INJ, ONCE, Stop date: 12/22/20 18:34:00 CDT glycopyrrol No Route: IV, Memoria ate (ANES) 12-22 Drug form: l 23:34: INJ, ONCE, Stop date: 12/22/20 18:34:00 CDT neostigmine No Route: IV, Memoria (ANES) 12-22 Drug form: l 23:34: INJ, ONCE, Stop date: 12/22/20 18:34:00 CDT ePHEDrine No Route: IV, Me moria (ANES) 12-22 Drug form: l 23:29: INJ, ONCE, Stop date: 12/22/20 18:29:00 CDT ePHEDrine No Route: IV, Me moria (ANES) 12-22 Drug form: l 23:29: INJ, ONCE, Stop date: 12/22/20 18:29:00 CDT ondansetron No Route: IV, Memoria (ANES) 12-22 Drug form: l 23:13: INJ, ONCE, Stop date: 12/22/20 18:13:00 CDT ceFAZolin No Route: IV, Me moria (ANES) 12-22 Drug form: l 23:13: INJ, ONCE, Stop date: 12/22/20 18:13:00 CDT ondansetron No Route: IV, Memoria (ANES) 12-22 Drug form: l 23:13: INJ, ONCE, Stop date: 12/22/20 18:13:00 CDT ceFAZolin No Route: IV, Me moria (ANES) 12-22 Drug form: l 23:13: INJ, ONCE, Stop date: 12/22/20 18:13:00 CDT hydromorpho No Route: IV, Memoria ne (ANES) + 12-22 Drug form: l sodium 22:47: INJ, ONCE, Brianna nn chloride Stop date: (ANES) 9 mL 12/22/20 17:47:00 CDT hydromorpho No Route: IV, Memoria ne (ANES) + 12-22 Drug form: l sodium 22:47: INJ, ONCE, Brianna nn chloride Stop date: (ANES) 9 mL 12/22/20 17:47:00 CDT rocuronium No Route: IV, M emoria (ANES) 12-22 Drug form: l 22:27: INJ, ONCE, Stop date: 12/22/20 17:27:00 CDT rocuronium No Route: IV, M emoria (ANES) 12-22 Drug form: l 22:27: INJ, ONCE, Stop date: 12/22/20 17:27:00 CDT dexamethaso No Route: IV, Memoria ne (ANES) 12-22 Drug form: l 20:47: INJ, ONCE, Stop date: 12/22/20 15:47:00 CDT dexamethaso No Route: IV, Memoria ne (ANES) 12-22 Drug form: l 20:47: INJ, ONCE, Stop date: 12/22/20 15:47:00 CDT phenylephri No Route: IV, Memoria ne (ANES) + 12-22 Drug form: l Sodium 20:37: INJ, ONCE, Brianna nn Chloride Stop date: 0.9% IV 12/22/20 (ANES) 99 15:37:00 mL CDT phenylephri No Route: IV, Memoria ne (ANES) + 12-22 Drug form: l Sodium 20:37: INJ, ONCE, Brianna nn Chloride Stop date: 0.9% IV 12/22/20 (ANES) 99 15:37:00 mL CDT rocuronium No Route: IV, M emoria (ANES) 12-22 Drug form: l 20:27: INJ, ONCE, Stop date: 12/22/20 15:27:00 CDT rocuronium No Route: IV, M emoria (ANES) 12-22 Drug form: l 20:27: INJ, ONCE, Stop date: 12/22/20 15:27:00 CDT hydromorpho No Route: IV, Memoria ne (ANES) 12-22 Drug form: l sodium 18:06: INJ, ONCE, Brianna nn chloride Stop date: (ANES) 9 mL 12/22/20 13:06:00 CDT hydromorpho No Route: IV, Memoria ne (ANES) + 12-22 Drug form: l sodium 18:06: INJ, ONCE, Brianna nn chloride 00 Stop date: (ANES) 9 mL 12/22/20 13:06:00 CDT Isolyte S No Route: IV, Me moria PH 7.4 - Total l (ANES) 1000 16:59: Volume: Her [place] mL 00 1,000, Start date: 12/22/20 11:59:00 CDT, Stop date: 12/22/20 12:59:00 CDT Isolyte S No Route: IV, Me moria PH 7.4 12-22 Total l (ANES) 1000 16:59: Volume: Her [place] mL 00 1,000, Start date: 12/22/20 11:59:00 CDT, Stop date: 12/22/20 12:59:00 CDT acetaminoph No Route: IV, Memoria en (ANES) 12-22 Drug form: l 10 mg 16:26: INJ, Start Scottie n 00 date: 12/22/20 11:26:00 CDT, Stop date: 12/22/20 12:26:00 CDT acetaminoph No Route: IV, Memoria en (ANES) 12-22 Drug form: l 10 mg 16:26: INJ, Start Scottie n 00 date: 12/22/20 11:26:00 CDT, Stop date: 12/22/20 12:26:00 CDT midazolam No Route: IV, Me moria (ANES) 12-22 Drug form: l 15:28: Duy JON 00 ONCE, Stop date: 12/22/20 10:28:00 CDT phenylephri No Route: IV, Memoria ne (ANES) + 12-22 Drug form: l Sodium 15:28: INJ, ONCE, Brianna nn Chloride 00 Stop date: 0.9% IV 12/22/20 (ANES) 99 10:28:00 mL CDT midazolam No Route: IV, Me moria (ANES) 12-22 Drug form: l 15:28: Jodi JONann 00 ONCE, Stop date: 12/22/20 10:28:00 CDT phenylephri No Route: IV, Memoria ne (ANES) + 12-22 Drug form: l Sodium 15:28: INJ, ONCE, Brianna nn Chloride 00 Stop date: 0.9% IV 12/22/20 (ANES) 99 10:28:00 mL CDT Hydralazine No Notes: Dannie pat 12-22 (Same as: l 15:07: Apresoline [place] ) Push over 5 minutes esmolol No Notes: Memoria 12-22 (Same as: l 15:07: Brevibloc) Duy 00 Labetalol No 10 mg, 2 Dannie pat 12-22 mL, Route: l 15:07: IVP, Drug [place] 00 form: INJ, Q5Min, Dosing Weight 68.182, kg, PRN Elevated BP, Start date: 12/22/20 10:07:00 CDT, Duration: 5 doses or times, Stop date: 12/23/20 0:00:00 CDT, 0 Acetaminoph No Notes: Max Memoria en 12-22 acetaminop l 15:07: hen 4000 [place] 00 mg/day (4 gm/day). (Same as: Tylenol Extra Strength) Oxycodone No Notes: Memori a Hydrochlori 12-22 (Same as: l de 5 MG 15:07: Roxicodone Herm shama Oral Tablet ) Hydromorpho No Notes: Dannie pat ne 12-22 Same as l 15:07: Dilaudid Duy Flumazenil No Notes: Memor ia 12-22 (Same as: l 15:07: Romazicon) [place] Naloxone No Notes: Memoria 12-22 Same as l 15:07: Narcan [place] Ondansetron No Notes: Dannie pat 12-22 (Same as: l 15:07: Zofran) [place] MEDICATION WASTE Product Size: 4 mg Product Wasted: ___ mg Hydralazine No Notes: Dannie pat 12-22 (Same [...] en 12-22 acetaminop l 15:07: hen 4000 mg/day (4 gm/day). (Same as: Tylenol Extra Strength) Oxycodone No Notes: Memori a Hydrochlori 12-22 (Same as: l de 5 MG 15:07: Roxicodone Herm shama Oral Tablet ) Hydromorpho No Notes: Dannie pat ne 12-22 Same as l 15:07: Dilaudid Flumazenil No Notes: Memor ia 12-22 (Same as: l 15:07: Romazicon) Naloxone No Notes: Memoria 12-22 Same as l 15:07: Narcan Ondansetron No Notes: Dannie pat 12-22 (Same as: l 15:07: Zofran) MEDICATION WASTE Product Size: 4 mg Product Wasted: ___ mg lidocaine No Route: IV, Me moria (ANES) 12-22 Drug form: l 14:47: INJ, ONCE, Stop date: 12/22/20 9:47:00 CDT propofol No [...] INJ, ONCE, Stop date: 12/22/20 9:47:00 CDT lidocaine No Route: IV, Me moria (ANES) 12-22 Drug form: l 14:47: INJ, ONCE, Stop date: 12/22/20 9:47:00 CDT propofol No [...] IV 14:40: INJ, Start Herm shama (ANES) 99 00 date: mL + 12/22/20 phenylephri 9:40:00 ne (ANES) CDT, Stop 100 date: microgram 12/22/20 10:40:00 CDT Sodium No Route: IV, Memor ia Chloride 12-22 Drug form: l 0.9% IV 14:40: INJ, Start Herm shama (ANES) 00 date: mL + 12/22/20 phenylephri 9:40:00 ne (ANES) CDT, Stop 100 date: microgram 12/22/20 10:40:00 CDT phenylephri 2020-0 No Route: IV, Sandraoria ne (ANES) 12-22 Drug form: l 14:36: INJ, ONCE, Stop date: 12/22/20 9:36:00 CDT phenylephri 2020-0 No Route: IV, Sandraoria ne (ANES) 12-22 Drug form: l 14:36: INJ, ONCE, Stop date: 12/22/20 9:36:00 CDT rocuronium 2020-0 No Route: IV, Aikla emoria (ANES) 12-22 Drug form: l 14:21: INJ, ONCE, Stop date: 12/22/20 9:21:00 CDT ceFAZolin 2020-0 No Route: IV, moria (ANES) 12-22 Drug form: l 14:21: INJ, ONCE, Stop date: 12/22/20 9:21:00 CDT rocuronium 2020-0 No Route: IV, Akila emoria (ANES) 12-22 Drug form: l 14:21: INJ, ONCE, Stop date: 12/22/20 9:21:00 CDT ceFAZolin 2020-0 No Route: IV, moria (ANES) 12-22 Drug form: l 14:21: INJ, ONCE, Stop date: 12/22/20 9:21:00 CDT Lactated 2020-0 No Route: IV, Mem oria Ringers 12-22 Total l Injection 13:30: Volume: Brianna nn IV (ANES) 00 500, Start 500 mL date: 12/22/20 8:30:00 CDT, Stop date: 12/22/20 9:30:00 CDT Lactated 2020-0 No Route: IV, Mem oria Ringers - Total l Injection 13:30: Volume: Brianna nn IV (ANES) 00 500, Start 500 mL date: 12/22/20 8:30:00 CDT, Stop date: 12/22/20 9:30:00 CDT Lactated 2020-0 No Route: IV, Mem oria Ringers 8-27 Total l Injection 13:05: Volume: Brianna nn IV (ANES) 00 1,000, 1000 mL Start date: 12/22/20 8:05:00 CDT, Stop date: 12/22/20 9:05:00 CDT Lactated No Route: IV, Mem oria Ringers 8-27 Total l Injection 13:05: Volume: Brianna nn IV (ANES) 00 1,000, 1000 mL Start date: 12/22/20 8:05:00 CDT, Stop date: 12/22/20 9:05:00 CDT Lovenox No Notes: Memoria 8-26 (Same as: l 21:00: Lovenox) [place] Lovenox No Notes: Memoria 8-26 (Same as: l 21:00: Lovenox) Duy 00 Dulcolax No Notes: Memoria Laxative 8-25 (Same As: l 20:42: Dulcolax, Duy 00 Bisco-Lax) Dulcolax No Notes: Memoria Laxative 8-25 (Same As: l 20:42: Dulcolax, [place] 00 Bisco-Lax) Lovenox No Notes: Memoria 8-25 (Same as: l 19:00: Lovenox) [place] 00 Lovenox No Notes: Memoria 8-25 (Same as: l 19:00: Lovenox) sugammadex No Route: IV, M emoria (ANES) 12-19 Drug form: l 14:00: Duy JON 00 ONCE, Stop date: 12/19/20 9:00:00 CDT sugammadex No Route: IV, M emoria (ANES) 824 Drug form: l 14:00: SOLNJodiP[place] 00 ONCE, Stop date: 12/19/20 9:00:00 CDT lidocaine No Route: IV, Me moria (ANES) 12-19 Drug form: l 13:55: INJ, ONCE, Duy Stop date: 12/19/20 8:55:00 CDT propofol No Route: IV, Mem oria (ANES) 12-19 Drug form: l 13:55: INJ, ONCE, Stop date: 12/19/20 8:55:00 CDT rocuronium 0 No Route: IV, M emoria (ANES) 12-19 Drug form: l 13:55: INJ, ONCE, Stop date: 12/19/20 8:55:00 CDT fentaNYL 0 No Route: IV, Mem oria (ANES) 12-19 Drug form: l 13:55: INJ, ONCE, Stop date: 12/19/20 8:55:00 CDT ondansetron No Route: IV, Memoria (ANES) 12-19 Drug form: l 13:55: INJ, ONCE, Stop date: 12/19/20 8:55:00 CDT lidocaine No Route: IV, Me moria (ANES) 12-19 Drug form: l 13:55: INJ, ONCE, Stop date: 12/19/20 8:55:00 CDT propofol 0 No Route: IV, Mem oria (ANES) 12-19 Drug form: l 13:55: INJ, ONCE, Stop date: 12/19/20 8:55:00 CDT rocuronium 0 No Route: IV, M emoria (ANES) 12-19 Drug form: l 13:55: INJ, ONCE, Stop date: 12/19/20 8:55:00 CDT fentaNYL 0 No Route: IV, Mem oria (ANES) 12-19 Drug form: l 13:55: INJ, ONCE, Stop date: 12/19/20 8:55:00 CDT ondansetron 0 No Route: IV, Memoria (ANES) 12-19 Drug form: l 13:55: INJ, ONCE, Stop date: 12/19/20 8:55:00 CDT dexamethaso No Route: IV, Memoria ne (ANES) 12-19 Drug form: l 13:30: INJ, ONCE, Stop date: 12/19/20 8:30:00 CDT dexamethaso No Route: IV, Memoria ne (ANES) 12-19 Drug form: l 13:30: INJ, ONCE, Duy Stop date: 12/19/20 8:30:00 CDT phenylephri No Route: IV, Memoria ne (ANES) 12-19 Drug form: l 13:19: INJ, ONCE, [place] Stop date: 12/19/20 8:19:00 CDT Acetaminoph No Notes: Max Memoria en 12-19 acetaminop l 13:19: hen 4000 [place] 00 mg/day (4 gm/day). (Same as: Tylenol Extra Strength) Oxycodone No Notes: Memori a Hydrochlori 12-19 (Same as: l de 5 MG 13:19: Roxicodone Herm shama Oral Tablet ) Hydromorpho No Notes: Dannie pat ne 12-19 Same as l 13:19: Dilaudid Flumazenil No Notes: Memor ia 12-19 (Same as: l 13:19: Romazicon) Naloxone No Notes: Memoria 824 Same as l 13:19: Narcan Ondansetron No Notes: Dannie pat -24 (Same as: l 13:19: Zofran) MEDICATION WASTE Product Size: 4 mg Product Wasted: ___ mg Methocarbam No Notes: Dannie pat ol 12-19 (Same l 13:19: as:Robaxin [place] ) phenylephri No Route: IV, Memoria ne (ANES) 12-19 Drug form: l 13:19: INJ, ONCE, [place] Stop date: 12/19/20 8:19:00 CDT Acetaminoph No Notes: Max Memoria en -24 acetaminop l 13:19: hen 4000 Duy 00 mg/day (4 gm/day). (Same as: Tylenol Extra Strength) Oxycodone No Notes: Memori a Hydrochlori -24 (Same as: l de 5 MG 13:19: Roxicodone Herm shama Oral Tablet ) Hydromorpho [...] pat ol 12-19 (Same l 13:19: as:Robaxin Duy ) Lactated No Route: IV, Mem oria Ringers 8-24 Total l Injection 12:40: Volume: Brianna nn IV (ANES) 00 1,000, 1000 mL Start date: 12/19/20 7:40:00 CDT, Stop date: 12/19/20 8:40:00 CDT Lactated No Route: IV, Mem oria Ringers 8-24 Total l Injection 12:40: Volume: Brianna nn IV (ANES) 00 1,000, 1000 mL Start date: 12/19/20 7:40:00 CDT, Stop date: 12/19/20 8:40:00 CDT Potassium No Notes: Memori a Chloride 8-23 (Same as: l 20:: K-Dur 20) "Do Not Crush" Give with food and full glass of water For patients unable to swallow tablet, dissolve in one half glass of water. Allow about 2 minutes for the tablets to disintegra te. Stir before giving to prepare slurry and administer . Please exclude Patient s with feeding tube less than 14 Czech (Dobhoff, J-tube etc) and pediatric and patients. Potassium No Notes: Memori a Chloride 8-23 (Same as: l 20:09: K-Dur 20) [place] 00 "Do Not Crush" Give with food and full glass of water For patients unable to swallow tablet, dissolve in one half glass of water. Allow about 2 minutes for the tablets to disintegra te. Stir before giving to prepare slurry and administer . Please exclude Patient s with feeding tube less than 14 [place] (Dobhoff, J-tube etc) and pediatric and patients. tamsulosin No Notes: Memor ia 8-23 (Same As: l 20:05: Flomax) Duy 00 "Do Not Crush" tamsulosin No Notes: Memor ia 8-23 (Same As: l 20:05: Flomax) Duy 00 "Do Not Crush" sennosides, No Notes: Dannie pat LONG-TERM 8-22 (Same as: l 02:00: Senokot) sennosides, No Notes: Dannie pat LONG-TERM 8-22 (Same as: l 02:00: Senokot) POLYETHYLEN No Notes: Dannie pat E GLYCOL 8-21 Dissolve l 3350 14:00: in 8 oz of [place] 00 water or juice. (Same as: Miralax) clobazam No Notes: Memoria 8-21 (Same as: l 14:00: Onfi) [place] 00 reserved for Neurology use only 24 HR No Notes: Memoria Divalproex 12-16 Hazardous l Sodium 500 14:00: Drug Group H ermann MG Extended 00 2:Non-anti Release neoplastic Tablet Hazardous Drug -- Refer to safe handling procedure PPE Matrix (Same as: Depakote ER) Once daily dosing; indicated for migraines. Divalproex sodium extended-r elease tab. Do not chew or crush. Methylpheni No Notes: Dannie pat date 8 (Same l 14:00: as:Ritalin ) POLYETHYLEN No Notes: Dannie pat E GLYCOL 8-21 Dissolve l 3350 14:00: in 8 oz of [place] 00 water or juice. (Same as: Miralax) clobazam No Notes: Memoria 8-21 (Same as: l 14:00: Onfi) [place] 00 reserved for Neurology use only 24 HR No Notes: Memoria Divalproex 8-21 Hazardous l Sodium 500 14:00: Drug Group H ermann MG Extended 00 2:Non-anti Release neoplastic Tablet Hazardous Drug -- Refer to safe handling procedure PPE Matrix (Same as: Depakote ER) Once daily dosing; indicated for migraines. Divalproex sodium extended-r elease tab. Do not chew or crush. Methylpheni No Notes: Dannie pat date 12-16 (Same l 14:00: as:Ritalin ) Dilaudid No Notes: Memoria 12-16 Same as l 12:52: Dilaudid Dilaudid No Notes: Memoria 12-16 Same as l 12:52: Dilaudid Aspirin 81 Yes Notes: Do Me moria MG Enteric 12-16 not crush l Coated 11:00: or chew. Duy Tablet 00 (Same As: Ecotrin) Aspirin No Notes: Memoria 12-16 Take with l 11:00: food. [place] 00 Aspirin 81 Yes Notes: Do Me moria MG Enteric 12-16 not crush l Coated 11:00: or chew. [place] Tablet 00 (Same As: Ecotrin) Aspirin No Notes: Memoria 12-16 Take with l 11:00: food. PlasmaLyte No Notes: Memor ia A PH-7.4 12-16 (Same as: l 500 mL 10:05: Isolyte S Scottie n 00 PH7.4, Normosol-R PH 7.4, Plasma-Lyt e A ) PlasmaLyte No Notes: Memor ia A PH-7.4 12-16 (Same as: l 500 mL 10:05: Isolyte S Scottie n 00 PH7.4, Normosol-R PH 7.4, Plasma-Lyt e A ) Acetaminoph No Notes: Max Memoria en 12-16 acetaminop l 06:00: hen 4000 mg/day (4 gm/day). (Same as: Tylenol Extra Strength) gabapentin No Notes: Memor ia 12-16 (Same as: l 06:00: Neurontin) Oxycodone No Notes: Memori a Hydrochlori 12-16 (Same as: l de 5 MG 06:00: Roxicodone Herm shama Oral Tablet 00 ) Naloxone No Notes: Memoria 12-16 Same as l 06:00: Narcan Acetaminoph No Notes: Max Memoria en 12-16 acetaminop l 06:00: hen 4000 [place] 00 mg/day (4 gm/day). (Same as: Tylenol Extra Strength) gabapentin No Notes: Memor ia 12-16 (Same as: l 06:00: Neurontin) Oxycodone No Notes: Memori a Hydrochlori 12-16 (Same as: l de 5 MG 06:00: Roxicodone Herm shama Oral Tablet 00 ) Naloxone No Notes: Memoria 12-16 Same as l 06:00: Narcan heparin No Notes: Memoria additive 12-16 Total l 25,000 unit 05:38: Concentrat [place] [500 00 ion = 50 unit/hr] + unit/ ml Premix Total Diluent volume = Sodium 500 ml Chloride Send Med 0.45% 500 Request 2 mL hours prior to next bag heparin No Notes: Memoria additive 12-16 Total l 25,000 unit 05:38: Concentrat [place] [500 00 ion = 50 unit/hr] + unit/ ml Premix Total Diluent volume = Sodium 500 ml Chloride Send Med 0.45% 500 Request 2 mL hours prior to next bag Unasyn No Notes: Memoria 12-16 Dosing l 05:00: based on Ampicillin component (Same as: Unasyn) Unasyn No Notes: Memoria 12-16 Dosing l 05:00: based on Ampicillin component (Same as: Unasyn) Dextrose No 12.5 gm, Memor ia 50% Syringe 12-16 25 mL, l (D50W) 04:32: Route: IVP, Drug Form: INJ, Dosing Weight 68.1, kg, PRN, PRN Blood Glucose Results, Start date: 12/15/20 23:32:00 CDT, Duration: 30 day, Stop date: 01/14/21 23:31:00 CDT, 0 Glucagon No 1 mg, Memoria 12-16 Route: IM, l 04:32: Drug form: [place] PDR/INJ, PRN, Dosing Weight 68.1, kg, PRN Blood Glucose Results, Start date: 12/15/20 23:32:00 CDT, Duration: 30 day, Stop date: 01/14/21 23:31:00 CDT, 0 Ondansetron No Notes: Dannie pat 12-16 (Same as: l 04:32: Zofran) [place] 00 MEDICATION WASTE Product Size: 4 mg Product Wasted: ___ mg Dextrose No 12.5 gm, Memor ia 50% Syringe 12-16 25 mL, l (D50W) 04:32: Route: IVP, Drug Form: INJ, Dosing Weight 68.1, kg, PRN, PRN Blood Glucose Results, Start date: 12/15/20 23:32:00 CDT, Duration: 30 day, Stop date: 01/14/21 23:31:00 CDT, 0 Glucagon No 1 mg, Memoria 12-16 Route: IM, l 04:32: Drug form: PDR/INJ, PRN, Dosing Weight 68.1, kg, PRN Blood Glucose Results, Start date: 12/15/20 23:32:00 CDT, Duration: 30 day, Stop date: 01/14/21 23:31:00 CDT, 0 Ondansetron No Notes: Dannie pat 12-16 (Same as: l 04:32: Zofran) Duy MEDICATION WASTE Product Size: 4 mg Product Wasted: ___ mg Phenergan No Notes: Do Mem oria 12-16 not give l 01:03: IV push. Duy (Same as: Phenergan) Phenergan No Notes: Do Mem oria 12-16 not give l 01:03: IV push. Duy (Same as: Phenergan) ondansetron No Route: IV, Memoria (ANES) 8-20 Drug form: l 23:43: INJ, ONCE, [place] 00 Stop date: 12/15/20 18:43:00 CDT ondansetron No Route: IV, Memoria (ANES) 8-20 Drug form: l 23:43: INJ, ONCE, Duy Stop date: 12/15/20 18:43:00 CDT sugammadex No Route: IV, Akila emoria (ANES) 8-20 Drug form: l 23:38: SOLN, [place] ONCE, Stop date: 12/15/20 18:38:00 CDT sugammadex No Route: IV, Akila emoria (ANES) 8-20 Drug form: l 23:38: SOLN, Duy ONCE, Stop date: 12/15/20 18:38:00 CDT heparin No Notes: Memoria additive 8-20 Total l 25,000 unit 22:19: Concentrat [place] [7.5 00 ion = 50 unit/kg/hr] unit/ ml + Premix Total Diluent volume = Sodium 500 ml Chloride Send Med 0.45% 500 Request 2 mL hours prior to next bag heparin No Notes: Memoria additive 8-20 Total l 25,000 unit 22:19: Concentrat Duy [7.5 00 ion = 50 unit/kg/hr] unit/ ml + Premix Total Diluent volume = Sodium 500 ml Chloride Send Med 0.45% 500 Request 2 mL hours prior to next bag heparin No Route: IV, Dannie pat (ANES) 8-20 Drug form: l 22:01: INJ, ONCE, Duy 00 Stop date: 12/15/20 17:01:00 CDT heparin No Route: IV, Dannie pat (ANES) 8-20 Drug form: l 22:01: INJ, ONCE, Duy Stop date: 12/15/20 17:01:00 CDT calcium 0 No Route: IV, Dannie pat chloride 8-20 Drug form: l (ANES) 21:20: INJ, ONCE, Brianna Stop date: 12/15/20 16:20:00 CDT calcium 0 No Route: IV, Dannie pat chloride 8-20 Drug form: l (ANES) 21:20: INJ, ONCE, Brianna Stop date: 12/15/20 16:20:00 CDT Isolyte S No Route: IV, Me moria PH 7.4 8-20 Total l (ANES) 500 19:55: Volume: Herm shama mL 500, Start date: 12/15/20 14:55:00 CDT, Stop date: 12/15/20 15:55:00 CDT Isolyte S No Route: IV, Me moria PH 7.4 8-20 Total l (ANES) 500 19:55: Volume: Herm shama mL 500, Start date: 12/15/20 14:55:00 CDT, Stop date: 12/15/20 15:55:00 CDT acetaminoph No Route: IV, Memoria en (ANES) 8-20 Drug form: l 18:52: INJ, ONCE, Stop date: 12/15/20 13:52:00 CDT acetaminoph No Route: IV, Memoria en (ANES) 8- Drug form: l 18:52: INJ, ONCE, Stop date: 12/15/20 13:52:00 CDT hydromorpho No Route: IV, Memoria ne (ANES) 8- Drug form: l 16:53: INJ, ONCE, Stop date: 12/15/20 11:53:00 CDT hydromorpho No Route: IV, Memoria ne (ANES) 8-20 Drug form: l 16:53: INJ, ONCE, Stop date: 12/15/20 11:53:00 CDT Hydralazine No 10 mg, Dannie pat -20 Route: l 16:20: IVP, Duy 00 Q20Min, Dosing Weight 68.1, kg, PRN Elevated BP, Start date: 12/15/20 11:20:00 CDT, Duration: 2 doses or times, Stop date: Limited # of times Labetalol No 10 mg, Memori a 820 Route: l 16:20: IVP, Duy 00 Q5Min, Dosing Weight 68.1, kg, PRN [...] oria ne 12-15 Route: l 16:20: IVP, Duy 00 Q5Min, Dosing Weight 68.1, kg, PRN Pain Score 7-10, Start date: 12/15/20 11:20:00 CDT, Duration: 4 doses or times, Stop date: Limited # of times Flumazenil 2020-0 No 0.2 mg, Dannie pat 12-15 Route: l 16:20: IVP, PRN, Duy 00 Dosing Weight 68.1, kg, PRN Benzodiaze pine Reversal, Initial dose, Start date: 12/15/20 11:20:00 CDT, Duration: 30 day, Stop date: 01/14/21 11:19:00 CDT Naloxone 2020-0 No 0.4 mg, Memori a 12-15 Route: l 16:20: IVP, Duy 00 Q2MIN, Dosing Weight 68.1, kg, PRN Narcotic Reversal, Start date: 12/15/20 11:20:00 CDT, Duration: 8 doses or times, Stop date: Limited # of times Ondansetron 2020-0 No 4 mg, Memor ia 12-15 Route: l 16:20: IVP, ONCE, Duy 00 Dosing Weight 68.1, kg, PRN Nausea & Vomiting, Start date: 12/15/20 11:20:00 CDT Methocarbam 2020-0 No 1,000 mg, M emoria ol 12-15 Route: IV, l 16:20: ONCE, Duy Dosing Weight 68.1, kg, Start date: 12/15/20 11:20:00 CDT, Stop date: 12/15/20 11:20:00 CDT Hydralazine 2020-0 No 10 mg, Dannie pat 12-15 Route: l 16:20: IVP, Duy 00 Q20Min, Dosing Weight 68.1, kg, PRN Elevated BP, Start date: 12/15/20 11:20:00 CDT, Duration: 2 doses or times, Stop date: Limited # of times Labetalol 2020-0 No 10 mg, Memori a 12-15 Route: l 16:20: IVP, Duy 00 Q5Min, Dosing Weight 68.1, kg, PRN Elevated BP, Start date: 12/15/20 11:20:00 CDT, Duration: 5 doses or times, Stop date: Limited # of times Acetaminoph 2020-0 No 1,000 mg, M emoria en 12-15 Route: PO, l 16:20: Drug form: Duy 00 TAB, ONCE, Dosing Weight 68.1, kg, PRN Pain Score 1-3, Start date: 12/15/20 11:20:00 CDT Oxycodone 1-0 No 5 mg, Memoria Hydrochlori 12-15 Route: PO, l de 5 MG 16:20: Drug form: Herm shama Oral Tablet 00 TAB, Q4H, Dosing Weight 68.1, kg, PRN Pain Score 4-6, Start date: 12/15/20 11:20:00 CDT, Duration: 30 day, Stop date: 01/14/21 11:19:00 CDT Hydromorpho 1-0 No 0.5 mg, Mem oria ne 12-15 Route: l 16:20: IVP, Duy 00 Q5Min, Dosing Weight 68.1, kg, PRN Pain Score 7-10, Start date: 12/15/20 11:20:00 CDT, Duration: 4 doses or times, Stop date: Limited # of times Flumazenil 1-0 No 0.2 mg, Dannie pat 820 Route: l 16:20: IVP, PRN, Dosing Weight 68.1, kg, PRN Benzodiaze pine Reversal, Initial dose, Start date: 12/15/20 11:20:00 CDT, Duration: 30 day, Stop date: 01/14/21 11:19:00 CDT Naloxone 1-0 No 0.4 mg, Memori a 8 Route: l 16:20: IVP, Q2MIN, Dosing Weight 68.1, kg, PRN Narcotic Reversal, Start date: 12/15/20 11:20:00 CDT, Duration: 8 doses or times, Stop date: Limited # of times Ondansetron 1-0 No 4 mg, Memor ia 12-15 Route: l 16:20: IVP, ONCE, Dosing Weight 68.1, kg, PRN Nausea & Vomiting, Start date: 12/15/20 11:20:00 CDT Methocarbam 1-0 No 1,000 mg, M emoria ol 12-15 Route: IV, l 16:20: ONCE, Dosing Weight 68.1, kg, Start date: 12/15/20 11:20:00 CDT, Stop date: 12/15/20 11:20:00 CDT Sodium 2021-0 No 250 mL, Memoria Chloride 8-20 Rate: To l 0.9% 16:12: prime line Duy (titrate) 00 and flush 250 mL remaining blood products., Dosing Weight 68.1, kg, Route: IV, Total Volume: 250, Start Date: 12/15/20 11:12:00 CDT, Duration: 1 day, Stop date: 12/16/20 11:11:00 CDT, Replace Every: 24 hr, 0 Sodium 2021-0 No 250 mL, Memoria Chloride 8-20 Rate: To l 0.9% 16:12: prime line Duy (titrate) 00 and flush 250 mL remaining blood products., Dosing Weight 68.1, kg, Route: IV, Total Volume: 250, Start Date: 12/15/20 11:12:00 CDT, Duration: 1 day, Stop date: 12/16/20 11:11:00 CDT, Replace Every: 24 hr, 0 glycopyrrol No Route: IV, Memoria ate (ANES) 8-20 Drug form: l 15:12: INJ, ONCE, Stop date: 12/15/20 10:12:00 CDT glycopyrrol 2020-0 No Route: IV, Memoria ate (ANES) 8-20 Drug form: l 15:12: INJ, ONCE, Stop date: 12/15/20 10:12:00 CDT dexamethaso 0 No Route: IV, Memoria ne (ANES) 8-20 Drug form: l 15:07: INJ, ONCE, Stop date: 12/15/20 10:07:00 CDT dexamethaso 2020-0 No Route: IV, Memoria ne (ANES) 8-20 Drug form: l 15:07: INJ, ONCE, Stop date: 12/15/20 10:07:00 CDT Sodium 2020-0 No Route: IV, Memor ia Chloride 8-20 Total l 0.9% IV 14:32: Volume: [place] (ANES) 500 00 500, Start mL date: 12/15/20 9:32:00 CDT, Stop date: 12/15/20 10:32:00 CDT Sodium 2020-0 No Route: IV, Memor ia Chloride 8-20 Total l 0.9% IV 14:32: Volume: [place] (ANES) 500 00 500, Start mL date: 12/15/20 9:32:00 CDT, Stop date: 12/15/20 10:32:00 CDT ePHEDrine 0 No Route: IV, Me moria (ANES) 8-20 Drug form: l 14:26: INJ, ONCE, Stop date: 12/15/20 9:26:00 CDT ceFAZolin 2020-0 No Route: IV, Me moria (ANES) 8-20 Drug form: l 14:26: INJ, ONCE, Stop date: 12/15/20 9:26:00 CDT ePHEDrine 2020-0 No Route: IV, Me moria (ANES) 8-20 Drug form: l 14:26: INJ, ONCE, Stop date: 12/15/20 9:26:00 CDT ceFAZolin 0 No Route: IV, Me moria (ANES) 8-20 Drug form: l 14:26: INJ, ONCE, Stop date: 12/15/20 9:26:00 CDT lidocaine 2020-0 No Route: IV, Me moria (ANES) 8-20 Drug form: l 14:01: INJ, ONCE, Stop date: 12/15/20 9:01:00 CDT propofol 2020-0 No Route: IV, Mem oria (ANES) 8-20 Drug form: l 14:01: INJ, ONCE, Stop date: 12/15/20 9:01:00 CDT rocuronium 0 No Route: IV, M emoria (ANES) 8-20 Drug form: l 14:01: INJ, ONCE, Stop date: 12/15/20 9:01:00 CDT fentaNYL 2020-0 No Route: IV, Mem oria (ANES) 8-20 Drug form: l 14:01: INJ, ONCE, Stop date: 12/15/20 9:01:00 CDT phenylephri 2020-0 No Route: IV, Memoria ne (ANES) 8-20 Drug form: l 14:01: INJ, ONCE, Stop date: 12/15/20 9:01:00 CDT lidocaine 0 No Route: IV, Me moria (ANES) 8-20 Drug form: l 14:01: INJ, ONCE, Stop date: 12/15/20 9:01:00 CDT propofol 2020-0 No Route: IV, Mem oria (ANES) 8-20 Drug form: l 14:01: INJ, ONCE, Stop date: 12/15/20 9:01:00 CDT rocuronium 2020-0 No Route: IV, M emoria (ANES) 8-20 Drug form: l 14:01: INJ, ONCE, Stop date: 12/15/20 9:01:00 CDT fentaNYL No Route: IV, Mem oria (ANES) 8-20 Drug form: l 14:01: INJ, ONCE, [place] 00 Stop date: 12/15/20 9:01:00 CDT phenylephri No Route: IV, Memoria ne (ANES) 8-20 Drug form: l 14:01: INJ, ONCE, [place] 00 Stop date: 12/15/20 9:01:00 CDT Lactated No Route: IV, Mem oria Ringers 8-20 Total l Injection 12:40: Volume: Brianna nn IV (ANES) 00 1,000, 1000 mL Start date: 12/15/20 7:40:00 CDT, Stop date: 12/15/20 8:40:00 CDT Lactated No Route: IV, Mem oria [...] 12-15 Route: PO, l 11:48: Drug form: Duy 00 TAB, PRE OP, Dosing Weight 68.182, kg, Priority: NOW, Start date: 12/15/20 6:48:00 CDT, Duration: 1 doses or times Isolyte S No Notes: Memori a PH 7.4 8-20 (Same as: l 1,000 mL 11:48: Isolyte S Herm shama 00 PH7.4, Normosol-R PH 7.4, Plasma-Lyt e A ) Acetaminoph No 1,000 mg, M emoria en 12-15 Route: PO, l 11:48: Drug form: [place] 00 TAB, PRE OP, Dosing Weight 68.182, kg, Priority: NOW, Start date: 12/15/20 6:48:00 CDT, Duration: 1 doses or times metoprolol 0 No 25 mg = 1 Me moria tartrate 25 8-18 tab, PO, l mg oral 16:53: BID, 0 [place] tablet 00 Refill(s) metoprolol 0 No 25 mg = 1 Me moria tartrate 25 8-18 tab, PO, l mg oral 16:53: BID, 0 [place] tablet 00 Refill(s) lisinopril No 20 mg = 1 Me moria 20 mg oral 8-18 tab, PO, l tablet 16:51: Daily, 0 Duy 00 Refill(s) lisinopril No 20 mg = 1 Me moria 20 mg oral 8-18 tab, PO, l tablet 16:51: Daily, 0 Duy 00 Refill(s) No known No No known UT medications - medication He alth 14:00: s 34 No known No No known UT medications - medication He alth 14:00: s 34 valproic 0 Yes Take by UT acid 6-02 mouth. Health (Depakene) 19:01: 250 MG/5ML 06 oral liquid valproic 0 Yes Take by UT acid 6-02 mouth. Health (Depakene) 19:01: 250 MG/5ML 06 oral liquid valproic 0 Yes Take by UT acid 6-02 mouth. Health (Depakene) 19:01: 250 MG/5ML 06 oral liquid valproic 0 Yes Take by UT acid 6-02 mouth. [...] 14:01: twice a suspension 05 day. cloBAZam 1-0 Yes 10mg Q.5D Take 10 mg UT (Onfi) 2.5 6-02 by mouth Healt h mg/mL 14:01: twice a suspension 05 day. cloBAZam 1-0 Yes 10mg Q.5D Take 10 mg UT (Onfi) 2.5 6-02 by mouth Healt h mg/mL 14:01: twice a suspension 05 day. cloBAZam 1-0 Yes 10mg Q.5D Take 10 mg UT (Onfi) 2.5 6-02 by mouth Healt h mg/mL 14:01: twice a suspension 05 day. Mupirocin 2020-0 Yes 1 appl, Memor ia 0.02 MG/MG 5-28 TOP, l Topical 15:59: Daily, X 7 Herm shama Ointment 00 day, # 22 [Bactroban] gm, 0 Refill(s), Pharmacy: [facility] 256, 162.56, cm, 09/15/20 23:50:00 CDT, Height, 54.545, kg, 09/15/20 23:50:00 CDT, Weight Mupirocin 2020-0 Yes 1 appl, Memor ia 0.02 MG/MG 5-28 TOP, l Topical 15:59: Daily, X 7 Herm shama Ointment 00 day, # 22 [Bactroban] gm, 0 Refill(s), Pharmacy: [facility] 256, 162.56, cm, 09/15/20 23:50:00 CDT, Height, 54.545, kg, 09/15/20 23:50:00 CDT, Weight clobazam 10 2020-0 Yes 10 mg = 1 M emoria mg oral 5-28 tab, PO, l tablet 15:52: BID, 0 Duy 00 Refill(s) Aspirin 81 2020-0 Yes 81 mg = 1 Me moria MG Enteric 5-28 tab, PO, l Coated 15:52: Daily, 0 [place] Tablet 00 Refill(s) fluconazole Yes 400 mg = Me moria 400 mg/200 5-28 200 mL, l mL-NaCl 15:52: IV, Daily, Herm shama 0.9% 00 0 intravenous Refill(s) solution Hydrocortis Yes 1 apply, Me moria one 25 5-28 TOP, TID, l MG/ML 15:52: # 59 mL, 0 Scottie n Topical 00 Refill(s), Lotion Pharmacy: [facility] 256, 162.56, cm, 09/15/20 23:50:00 CDT, Height, 54.545, kg, 09/15/20 23:50:00 CDT, Weight meropenem Yes 500 mg, Memor ia 500 mg 5-28 IVPB, l intravenous 15:52: [id number], 0 H ermann injection 00 Refill(s) clobazam 10 Yes 10 mg = 1 M emoria mg oral 5-28 tab, PO, l tablet 15:52: BID, 0 [place] 00 Refill(s) Aspirin 81 Yes 81 mg = 1 Me moria MG Enteric 5-28 tab, PO, l Coated 15:52: Daily, 0 Duy Tablet 00 Refill(s) fluconazole Yes 400 mg = Me moria 400 mg/200 5-28 200 mL, l mL-NaCl 15:52: IV, Daily, Herm shama 0.9% 00 0 intravenous Refill(s) solution Hydrocortis Yes 1 apply, Me moria one 25 5-28 TOP, TID, l MG/ML 15:52: # 59 mL, 0 Scottie n Topical 00 Refill(s), Lotion Pharmacy: [facility] 256, 162.56, cm, 09/15/20 23:50:00 CDT, Height, 54.545, kg, 09/15/20 23:50:00 CDT, Weight meropenem Yes 500 mg, Memor ia 500 mg 5-28 IVPB, l intravenous 15:52: [id number], 0 H ermann injection 00 Refill(s) metoprolol Yes 50 mg = 1 Me moria tartrate 50 5-28 tab, PO, l mg oral 15:51: BID, # 60 Brianna nn tablet 00 tab, 1 Refill(s), Pharmacy: [facility] 256, 162.56, cm, 09/15/20 23:50:00 CDT, Height, 54.545, kg, 09/15/20 23:50:00 CDT, Weight methylpheni Yes 20 mg = 2 M emoria date 10 mg 5-28 tab, PO, l oral tablet 15:51: BID, 0 Herm shama 00 Refill(s) losartan 50 Yes 50 mg = 1 M emoria mg oral 5-28 tab, PO, l tablet 15:51: Daily, 0 [place] 00 Refill(s) 24 HR Yes 500 mg = 1 Memori a Divalproex 5-28 tab, PO, l Sodium 500 15:51: Q12H, 0 Herm shama MG Extended 00 Refill(s) Release Tablet metoprolol Yes 50 mg = 1 Me moria tartrate 50 5-28 tab, PO, l mg oral 15:51: BID, # 60 Brianna nn tablet 00 tab, 1 Refill(s), Pharmacy: [facility] 256, 162.56, cm, 09/15/20 23:50:00 CDT, Height, 54.545, kg, 09/15/20 23:50:00 CDT, Weight methylpheni Yes 20 mg = 2 M emoria date 10 mg 5-28 tab, PO, l oral tablet 15:51: BID, 0 Herm shama 00 Refill(s) losartan 50 Yes 50 mg = 1 M emoria mg oral 5-28 tab, PO, l tablet 15:51: Daily, 0 Duy 00 Refill(s) 24 HR Yes 500 mg [...] 00:00: 50 MG 00 tablet metoprolol 2020-0 2021- No UT tartrate 5-28 06 Health (Lopressor) 00:00: 00:00 50 MG 00 :00 tablet Hydrocortis 2020-0 No Route: Dannie pat one 25 5-27 TOP, TID, l MG/ML 14:00: Drug form: Scottie n Topical 00 CRM, Start Lotion date: 09/21/20 9:00:00 CDT, Duration: 30 day, Stop date: 10/20/20 17:00:00 CDT, 0 Hydrocortis 2020-0 No Route: Dannie pat one 25 5-27 TOP, TID, l MG/ML 14:00: Drug form: Scottie n Topical 00 CRM, Start Lotion date: 09/21/20 9:00:00 CDT, Duration: 30 day, Stop date: 10/20/20 17:00:00 CDT, 0 meropenem 2020-0 No Notes: Memori a 5-27 Same as l 04:00: Merrem meropenem 2020-0 No Notes: Memori a 5-27 Same as l 04:00: Merrem Hydralazine 2020-0 No 10 mg, Dannie pat 5-25 Route: IV, l 17:58: [id number], Duy 00 Dosing Weight 54.545, kg, PRN Hypertensi on, Start date: 09/19/20 12:58:00 CDT, Duration: 30 day, Stop date: 10/19/20 12:57:00 CDT Hydralazine 2020-0 No 10 mg, Dannie pat 5-25 Route: IV, l 17:58: [id number], Duy Dosing Weight 54.545, kg, PRN Hypertensi on, Start date: 09/19/20 12:58:00 CDT, Duration: 30 day, Stop date: 10/19/20 12:57:00 CDT Ceftriaxone No Notes: Dannie pat -25 (Same As: l 13:00: Rocephin). Duy 00 Use with 100 mL NS and infuse over 30 min MEDICATION WASTE Product Size: 2000 mg Product Wasted: ___ mg Ceftriaxone No Notes: Dannie pat -25 (Same As: l 13:00: Rocephin). [place] 00 Use with 100 mL NS and infuse over 30 min MEDICATION WASTE Product Size: 2000 mg Product Wasted: ___ mg Diflucan No Notes: Memoria 09-18 (Same as: l 20:00: Diflucan) Hazardous [facility] Group 3:Reproduc tive risk Hazardous Drug -- Refer to safe handling procedure PPE Matrix Diflucan No Notes: Memoria 09-18 (Same as: l 20:00: Diflucan) Hazardous Drug Group 3:Reproduc tive risk Hazardous Drug -- Refer to safe handling procedure PPE Matrix Methylpheni No Notes: Dannie pat date 09-18 (Same as l 18:45: :Ritalin) Methylpheni No Notes: Dannie pat date 09-18 (Same as l 18:45: :Ritalin) Diphenhydra No 1 appl, Mem oria mine 09-18 Route: l Hydrochlori 00:13: TOP, QID, H ermann de 20 MG/ML 00 Drug form: / Zinc CRM, PRN Acetate 1 Rash, MG/ML Start Topical date: Cream 09/17/20 [Banophen 19:13:00 Cream] CDT, Duration: 30 day, Stop date: 10/17/20 19:12:00 CDT, 0 Diphenhydra No 1 appl, Mem oria mine 09-18 Route: l Hydrochlori 00:13: TOP, QID, H ermann de 20 MG/ML 00 Drug form: / Zinc CRM, PRN Acetate 1 Rash, MG/ML Start Topical date: Cream 09/17/20 [Banophen 19:13:00 Cream] CDT, Duration: 30 day, Stop date: 10/17/20 19:12:00 CDT, 0 Benadryl, No 1 appl, Memor ia Topical 1% 5-23 Route: l Cream 08:18: TOP, QID, Drug form: CRM, PRN Rash, Start date: 09/17/20 3:18:00 CDT, Duration: 30 day, Stop date: 10/17/20 3:17:00 CDT, 0 Benadryl, No 1 appl, Memor ia Topical 1% 5-23 Route: l Cream 08:18: TOP, QID, Drug form: CRM, PRN Rash, Start date: 09/17/20 3:18:00 CDT, Duration: 30 day, Stop date: 10/17/20 3:17:00 CDT, 0 Losartan No Notes: Memoria 5-23 (Same as: l 07:28: Cozaar) Duy Losartan No Notes: Memoria 5-23 (Same as: l 07:28: Cozaar) Duy 00 remove No Notes: Memoria patch 5-22 Remove l 22:00: patch 12 Duy 00 hours after applicatio n each day. remove No Notes: Memoria patch 5-22 Remove l 22:00: patch 12 [place] 00 hours after applicatio n each day. clobazam No Notes: Memoria 5-22 (Same as: l 14:00: Onfi) Duy 00 reserved for Neurology use only 24 HR No Notes: Memoria Divalproex -22 Hazardous l Sodium 500 14:00: Drug Group H ermann MG Extended 00 2:Non-anti Release neoplastic Tablet Hazardous Drug -- Refer to safe handling procedure PPE Matrix (Same as: Depakote ER) Once daily dosing; indicated for migraines. Divalproex sodium extended-r elease tab. Do not chew or crush. Methylpheni No 20 mg, 1 Me moria date 09-16 tab, l 14:00: Route: PO, Drug form: TAB, BID, Dosing Weight 54.545, kg, Start date: 09/16/20 9:00:00 CDT, Duration: 30 day, Stop date: 10/15/20 17:00:00 CDT metoprolol No Notes: Memor ia tartrate 5-22 (Same as: l 14:00: Lopressor) Aspirin 81 No Notes: Do Me moria MG Enteric 5-22 not crush l Coated 14:00: or chew. Duy Tablet (Same As: Ecotrin) Lovenox No Notes: Memoria 5-22 (Same as: l 14:00: Lovenox) Vancomycin No 2001 mg: Me moria 5-22 infuse l 14:00: over 2.5 hours For adult patients only: Round to nearest 250 mg per Medical Staff approval MEDICATION WASTE Product Size: 1000 mg Product Wasted: ___ mg clobazam No Notes: Memoria 5-22 (Same as: l 14:00: Onfi) reserved for Neurology use only 24 HR No Notes: Memoria Divalproex 5-22 Hazardous l Sodium 500 14:00: Drug Group H ermann MG Extended 00 2:Non-anti Release neoplastic Tablet Hazardous Drug -- Refer to safe handling procedure PPE Matrix (Same as: Depakote ER) Once daily dosing; indicated for migraines. Divalproex sodium extended-r elease tab. Do not chew or crush. Methylpheni No 20 mg, 1 Me moria date - tab, l 14:00: Route: PO, Drug form: TAB, BID, Dosing Weight 54.545, kg, Start date: 09/16/20 9:00:00 CDT, Duration: 30 day, Stop date: 10/15/20 17:00:00 CDT metoprolol No Notes: Memor ia tartrate -22 (Same as: l 14:00: Lopressor) Aspirin 81 No Notes: Do Me moria MG Enteric 5-22 not crush l Coated 14:00: or chew. Duy Tablet 00 (Same As: Ecotrin) Lovenox No Notes: Memoria 5-22 (Same as: l 14:00: Lovenox) [place] 00 Vancomycin No 2000 mg: Me moria 5-22 infuse l 14:00: over 2.5 Duy 00 hours For adult patients only: Round to nearest 250 mg per Medical Staff approval MEDICATION WASTE Product Size: 1000 mg Product Wasted: ___ mg Vancomycin No Notes: Memor ia 5-22 TIME l 13:00: CRITICAL Duy 00 MEDICATION (Same As: Vancocin) For adult patients only: Round to nearest 250 mg per Medical Staff approval Vancomycin No Notes: Memor ia 5-22 TIME l 13:00: CRITICAL Duy 00 MEDICATION (Same As: Vancocin) For adult patients only: Round to nearest 250 mg per Medical Staff approval Lidocaine No Notes: Memori a 0.04 MG/MG 5-22 Apply only l Medicated 10:00: once for Herm shama Patch 00 up to 12 hours in a 24-hour period (12 hours on and 12 hours off). (Same as: Aspercreme Lidocaine Patch) "Remove old patch before applicatio n of new patch" Lidocaine No Notes: Memori a 0.04 MG/MG 5-22 Apply only l Medicated 10:00: once for Herm shama Patch 00 up to 12 hours in a 24-hour period (12 hours on and 12 hours off). (Same as: Aspercreme Lidocaine Patch) "Remove old patch before applicatio n of new patch" Aspirin 81 No 81 mg = 1 Me moria MG Enteric 5-22 tab, PO, l Coated 09:11: Daily, # Duy Tablet 00 90 tab, 3 Refill(s) Aspirin 81 0 No 81 mg = 1 Me moria MG Enteric 5-22 tab, PO, l Coated 09:11: Daily, # [place] Tablet 00 90 tab, 3 Refill(s) Vancomycin No 2000 mg: Me moria 5-22 infuse l 09:00: over 2.5 Duy 00 hours Vancomycin No 2001 mg: Me moria 5-22 infuse l 09:00: over 2.5 [place] 00 hours Iohexol No 100 mL, Memoria 09-16 Route: l 08:00: IVP, Drug [place] Form: SOLN, Dosing Weight 54.545, kg, ONCALL, STAT, Start date: 09/16/20 3:00:00 CDT, Duration: 1 doses or times, Dose = 2.2ml/kg, Max dose = 100ml -- "To be infused by Radiology Staff ONLY" Iohexol No 100 mL, Memoria 09-16 Route: l 08:00: IVP, Drug Duy 00 Form: SOLN, Dosing Weight 54.545, kg, ONCALL, STAT, Start date: 09/16/20 3:00:00 CDT, Duration: 1 doses or times, Dose = 2.2ml/kg, Max dose = 100ml -- "To be infused by Radiology Staff ONLY" cefepime No Notes: Memoria 09-16 (Same As: l 06:00: Maxipime) Duy 00 MEDICATION WASTE Product Size: 1000 mg Product Wasted: ___ mg cefepime No Notes: Memoria 09-16 (Same As: l 06:00: Maxipime) Duy 00 MEDICATION WASTE Product Size: 1000 mg Product Wasted: ___ mg Vancomycin No Notes: Memor ia 09-16 Vancomycin l 04:50: Pharmacy Duy 35 Dosing Protocol PHARMAC Y USE ONLY Note: This is not a medication order. This is a consultati on order. Vancomycin No Notes: Memor ia 09-16 Vancomycin l 04:50: Pharmacy [place] 35 Dosing Protocol PHARMAC Y USE ONLY Note: This is not a medication order. This is a consultati on order. cefepime No Notes: Memoria 09-16 (Same as: l 04:48: Maxipime) Duy 00 MEDICATION WASTE Product Size: 2000 mg Product Wasted: ___ mg cefepime 0 No Notes: Memoria 09-16 (Same as: l 04:48: Maxipime) Duy 00 MEDICATION WASTE Product Size: 2000 mg Product Wasted: ___ mg Dextrose No 12.5 gm, Memor ia 50% Syringe 5-22 25 mL, l (D50W) 04:47: Route: IVP, Drug Form: INJ, Dosing Weight 54.545, kg, PRN, PRN Blood Glucose Results, Start date: 09/15/20 23:47:00 CDT, Duration: 30 day, Stop date: 10/15/20 23:46:00 CDT, 0 Glucagon No 1 mg, Memoria 5-22 Route: IM, l 04:47: Drug form: PDR/INJ, PRN, Dosing Weight 54.545, kg, PRN Blood Glucose Results, Start date: 09/15/20 23:47:00 CDT, Duration: 30 day, Stop date: 10/15/20 23:46:00 CDT, 0 sennosides, No Notes: Dannie pat LONG-TERM 5-22 (Same as: l 04:47: Senokot) POLYETHYLEN No Notes: Dannie pat E GLYCOL 5-22 Dissolve l 3350 04:47: in 8 oz of water or juice. (Same as: Miralax) Ondansetron No Notes: Dannie pat 5-22 (Same as: l 04:47: Zofran) MEDICATION WASTE Product Size: 4 mg Product Wasted: ___ mg Melatonin No Notes: Memori a 5-22 (Same as: l 04:47: Melatonin) Acetaminoph No Notes: Do M emoria en 5-22 not exceed l 04:47: 4 gm/day. (Same as: Tylenol) LR IV 1,000 No 1,000 mL, M emoria mL 5-22 Rate: 55 l 04:47: ml/hr, Infuse over: [...] Nasal Moist) Tessalon No Notes: Memoria Perles - (Same As: l 04:47: Tessalon Perles) "Do Not Crush" Guaifenesin No Notes: Dannie pat -22 (Same as: l 04:47: Organidin [place] 00 NR) Blistex No Notes: Memoria topical - Same as: l ointment 04:47: Blistex Scottie n 00 albuterol No Notes: Memori a 90 mcg/inh - Albuterol l inhalation 04:47: 90 [place] aerosol 00 microgram/ inh 8.5gm HFA WASTE: Aerosol - Return to Pharmacy Same as: ProAir Dextrose No 12.5 gm, Memor ia 50% Syringe - 25 mL, l (D50W) 04:47: Route: IVP, [...] CDT, 0 sennosides, No Notes: Dannie pat LONG-TERM 5-22 (Same as: l 04:47: Senokot) POLYETHYLEN No Notes: Dannie pat E GLYCOL 5-22 Dissolve l 3350 04:47: in 8 oz of water or juice. (Same as: Miralax) Ondansetron No Notes: Dannie pat 5-22 (Same as: l 04:47: Zofran) MEDICATION WASTE Product Size: 4 mg Product Wasted: ___ mg Melatonin No Notes: Memori a 5-22 (Same as: l 04:47: Melatonin) Acetaminoph No Notes: Do M emoria en 5-22 not exceed l 04:47: 4 gm/day. (Same as: Tylenol) LR IV 1,000 No [...] elemental calcium) Simethicone No Notes: Dannie pat 5-22 (Same as: l 04:47: Mylicon) Lubricant No Notes: Memori a Eye Drops -22 (Same as: l 04:47: Aquasite) Nasal Moist No Notes: Dannie pat 0.65% -22 (sodium l solution 04:47: chloride Brianna nn 00 0.65% 15 ml nasal DROP) (Same as: Nasal Moist) Tessalon No Notes: Memoria Perles 5-22 (Same As: l 04:47: Tessalon Perles) "Do Not Crush" Guaifenesin No Notes: Dannie pat 5-22 (Same as: l 04:47: Organidin Duy 00 NR) Blistex No Notes: Memoria topical 5-22 Same as: l ointment 04:47: Blistex Scottie n 00 albuterol No Notes: Memori a 90 mcg/inh 5-22 Albuterol l inhalation 04:47: 90 [place] aerosol 00 microgram/ inh 8.5gm HFA WASTE: Aerosol - Return to Pharmacy Same as: ProAir Hydralazine No Notes: Dannie pat 5-22 (Same as: l 04:45: Apresoline ) Push over 5 minutes Hydralazine No Notes: Dannie pat 5-22 (Same as: l 04:45: Apresoline [place] 00 ) Push over 5 minutes Morphine No 4 mg, Memoria 5-22 Route: l 04:18: IVP, ONCE, Dosing Weight 54.545, kg, Priority: STAT, Start date: 09/15/20 23:18:00 CDT, Stop date: 09/15/20 23:18:00 CDT Zofran 0 No 4 mg, Memoria - Route: l 04:18: IVP, Drug form: INJ, ONCE, Dosing Weight 54.545, kg, Priority: STAT, Start date: 09/15/20 23:18:00 CDT, Stop date: 09/15/20 23:18:00 CDT Morphine 0 No 4 mg, Memoria 5- Route: l 04:18: IVP, ONCE, Dosing Weight 54.545, kg, Priority: STAT, Start date: 09/15/20 23:18:00 CDT, Stop date: 09/15/20 23:18:00 CDT Zofran 2020-0 No 4 mg, Memoria 5-22 Route: l 04:18: IVP, Drug form: INJ, ONCE, Dosing Weight 54.545, kg, Priority: STAT, Start date: 09/15/20 23:18:00 CDT, Stop date: 09/15/20 23:18:00 CDT 24 HR No Notes: Memoria Divalproex 5-22 Hazardous l Sodium 500 01:35: Drug Group H ermann MG Extended 00 2:Non-anti Release neoplastic Tablet Hazardous [Depakote] Drug -- Refer to safe handling procedure PPE Matrix (Same as: Depakote ER) Once daily dosing; indicated for migraines. Divalproex sodium extended-r elease tab. Do not chew or crush. clobazam No Notes: Memoria 5-22 (Same as: l 01:35: Onfi) reserved for Neurology use only 24 HR No Notes: Memoria Divalproex 5-22 Hazardous l Sodium 500 01:35: Drug Group H ermann MG Extended 00 2:Non-anti Release neoplastic Tablet Hazardous [Depakote] Drug -- Refer to safe handling procedure PPE Matrix (Same as: Depakote ER) Once daily dosing; indicated for migraines. Divalproex sodium extended-r elease tab. Do not chew or crush. clobazam No Notes: Memoria 5-22 (Same as: l 01:35: Onfi) reserved for Neurology use only Vancomycin No 2000 mg: Me moria 5-22 infuse l 00:01: over 2.5 [place] 00 hours Vancomycin No 2000 mg: Me moria 5-22 infuse l 00:01: over 2.5 [place] 00 hours Saline No Notes: Memoria Flush 0.9% 09-15 Same as: l 21:20: BD Posiflush Sterile Calcium No 1,600 mL, Memor ia Chloride 09-15 2000 l 0.0014 21:20: ml/hr, [place] MEQ/ML / 00 Infuse Potassium Over: 0.8 Chloride hr, Route: 0.004 IV, 1,600, MEQ/ML / Drug form: Sodium INJ, ONCE, Chloride Priority: 0.103 STAT, MEQ/ML / Dosing Sodium Weight Lactate 54.545 kg, 0.028 Start MEQ/ML date: Injectable 09/15/20 Solution 16:20:00 CDT, Stop date: 09/15/20 16:20:00 CDT, 0 cefepime 0 No Notes: Memoria 09-15 (Same as: l 21:20: Maxipime) MEDICATION WASTE Product Size: 2000 mg Product Wasted: ___ mg Saline No Notes: Memoria Flush 0.9% 09-15 Same as: l 21:20: BD Posiflush Sterile Calcium No 1,600 mL, Memor ia Chloride 09-15 2000 l 0.0014 21:20: ml/hr, MEQ/ML / 00 Infuse Potassium Over: 0.8 Chloride hr, Route: 0.004 IV, 1,600, MEQ/ML / Drug form: Sodium INJ, ONCE, Chloride Priority: 0.103 STAT, MEQ/ML / Dosing Sodium Weight Lactate 54.545 kg, 0.028 Start MEQ/ML date: Injectable 09/15/20 Solution 16:20:00 CDT, Stop date: 09/15/20 16:20:00 CDT, 0 cefepime 0 No Notes: Memoria 09-15 (Same as: l 21:20: Maxipime) MEDICATION WASTE Product Size: 2000 mg Product Wasted: ___ mg divalproex 2020-0 Yes [place] (Depakote 5-21 [facility]) 500 [...] hr 00 tablet divalproex 2021-0 Yes [place] ([facility]) 500 MG 00:00: 24 hr 00 tablet divalproex 2021-0 Yes [place] ([place] [address] [facility]) 500 MG 00:00: 24 hr 00 tablet divalproex 2021-0 Yes [place] ([place] [address] [facility]) 500 MG 00:00: 24 hr 00 tablet divalproex 2021-0 Yes [place] ([place] [address] [facility]) 500 MG 00:00: 24 hr 00 tablet divalproex 2021-0 Yes [place] ([place] [address] [facility]) 500 MG 00:00: 24 hr 00 tablet divalproex 2021-0 Yes [place] ([place] [address] [facility]) 500 MG 00:00: 24 hr 00 tablet divalproex 2021-0 Yes [place] ([place] [address] [facility]) 500 MG 00:00: 24 hr 00 tablet divalproex 2021-0 Yes [place] ([place] [address] [facility]) 500 MG 00:00: 24 hr 00 tablet divalproex 2021-0 Yes [place] ([place] [address] [facility]) 500 MG 00:00: 24 hr 00 tablet divalproex 2021-0 Yes [place] ([place] [address] [facility]) 500 MG 00:00: 24 hr 00 tablet divalproex 2021-0 Yes [place] ([place] [address] [facility]) 500 MG 00:00: 24 hr 00 tablet divalproex 2021-0 Yes [place] ([place] [address] [facility]) 500 MG 00:00: 24 hr 00 tablet divalproex 2021-0 Yes [place] ([place] [address] [facility]) 500 MG 00:00: 24 hr 00 tablet divalproex 2021-0 Yes [place] ([facility]) 500 MG 00:00: 24 hr 00 tablet divalproex 2021-0 Yes [place] ([place] [address] [facility]) 500 MG 00:00: 24 hr 00 tablet divalproex 2021-0 Yes [place]) 500 MG 00:00: 24 hr 00 tablet divalproex 2021-0 Yes [place] ([place] [address] [facility]) 500 MG 00:00: 24 hr 00 tablet divalproex 2021-0 Yes [place] ([place] [address] [facility]) 500 MG 00:00: 24 hr 00 tablet divalproex 2021-0 Yes [place] ([place] [address] [facility]) 500 MG 00:00: 24 hr 00 tablet divalproex 2021-0 Yes [place] ([place] [address] [facility]) 500 MG 00:00: 24 hr 00 tablet divalproex 2021-0 Yes [place] ([place] [address] [facility]) 500 MG 00:00: 24 hr 00 tablet divalproex 2021-0 Yes [place] ([place] [address] [facility]) 500 MG 00:00: 24 hr 00 tablet divalproex 2021-0 Yes [place] ([place] [address] [facility]) 500 MG 00:00: 24 hr 00 tablet divalproex 2021-0 Yes [place] ([place] [address] [facility]) 500 MG 00:00: 24 hr 00 tablet divalproex 2021-0 Yes [place] ([place] [address] [facility]) 500 MG 00:00: 24 hr 00 tablet divalproex 2021-0 Yes [place] ([place] [address] [facility]) 500 MG 00:00: 24 hr 00 tablet divalproex 2021-0 Yes [place] ([place] [address] [facility]) 500 MG 00:00: 24 hr 00 tablet divalproex 2021-0 Yes [place] ([place] [address] [facility]) 500 MG 00:00: 24 hr 00 tablet divalproex 2021-0 Yes [place] ([place] [address] [facility]) 500 MG 00:00: 24 hr 00 tablet divalproex 2021-0 Yes [place] ([place] [address] [facility]) 500 MG 00:00: 24 hr 00 tablet divalproex 2021-0 Yes [place] ([place] [address] [facility]) 500 MG 00:00: 24 hr 00 tablet divalproex 2021-0 Yes [place] ([place] [address] [facility]) 500 MG 00:00: 24 hr 00 tablet divalproex 2021-0 Yes [place] ([place] [address] [facility]) 500 MG 00:00: 24 hr 00 tablet divalproex 2021-0 Yes [place] (Depakote 5-21 [facility]) 500 MG 00:00: 24 hr 00 tablet divalproex 2020-0 Yes [place] (Depakote 5-21 [facility]) 500 MG 00:00: 24 hr 00 tablet divalproex 2020-0 Yes [place] (Depakote 5-21 [facility]) 500 MG 00:00: 24 hr 00 tablet divalproex 2020-0 2021- No [place] (Depakote 5-21 09-26 [facility] ER) 500 MG 00:00: 00:00 24 hr 00 :00 tablet Saline No Notes: Memoria Flush 0.9% 5-03 (Same as: l 21:00: BD [place] 00 Posiflush) Saline No Notes: Memoria Flush 0.9% 5-03 (Same as: l 21:00: BD Duy 00 Posiflush) Lidocaine No Notes: Memori a Hydrochlori 5-03 (Same as: l de 10 MG/ML 15:00: Xylocaine) Duy Injectable 00 Solution Lidocaine No Notes: Memori a Hydrochlori 5-03 (Same as: l de 10 MG/ML 15:00: Xylocaine) [place] Injectable 00 Solution Saline No Notes: Memoria Flush 0.9% 5-03 (Same as: l 14:32: BD Duy 00 Posiflush) Saline No Notes: Memoria Flush 0.9% 5-03 (Same as: l 14:32: BD [place] 00 Posiflush) Saline No Notes: Memoria Flush 0.9% 5-03 (Same as: l 05:00: BD Duy 00 Posiflush) Saline No Notes: Memoria Flush 0.9% 5-03 (Same as: l 05:00: BD Duy 00 Posiflush) Lidocaine No Notes: Memori a Hydrochlori 5-03 (Same as: l de 10 MG/ML 01:00: Xylocaine) [place] Injectable 00 Solution Lidocaine No Notes: Memori a Hydrochlori 5-03 (Same as: l de 10 MG/ML 01:00: Xylocaine) [place] Injectable 00 Solution Saline No Notes: Memoria Flush 0.9% 5-03 (Same as: l 00:30: BD [place] 00 Posiflush) Saline No Notes: Memoria Flush 0.9% 5-03 (Same as: l 00:30: BD Duy 00 Posiflush) Lisinopril 2020-0 No 20 mg, 1 Mem oria 5-02 tab, l 14:00: Route: PO, [place] 00 Drug form: TAB, Daily, Dosing Weight 68.182, kg, Start date: 08/27/20 9:00:00 CDT, Duration: 30 day, Stop date: 09/25/20 9:00:00 CDT Lisinopril 2020-0 No 20 mg, 1 Mem oria 5-02 tab, l 14:00: Route: PO, [place] 00 Drug form: TAB, Daily, Dosing Weight 68.182, kg, Start date: 08/27/20 9:00:00 CDT, Duration: 30 day, Stop date: 09/25/20 9:00:00 CDT remove No Notes: Memoria patch 5-02 Remove l 02:00: patch 12 Duy 00 hours after applicatio n each day. remove No Notes: Memoria patch 5-02 Remove l 02:00: patch 12 [place] 00 hours after applicatio n each day. Onfi No 5 mg, Memoria 5- Route: PO, l 22:00: Drug form: [place] 00 TAB, BID, Dosing Weight 68.182, kg, Start date: 08/26/20 17:00:00 CDT, Duration: 30 day, Stop date: 09/25/20 9:00:00 CDT Metoprolol 0 No 25 mg, 1 Mem oria Succinate 5-01 tab, l ER 25 mg 22:00: Route: PO, Her [place] oral 00 Drug form: tablet, ERTAB, extended BID, Start release date: 08/26/20 17:00:00 CDT, Duration: 30 day, Stop date: 09/25/20 9:00:00 CDT Onfi No 5 mg, Memoria 5- Route: PO, l 22:00: Drug form: Duy 00 TAB, BID, Dosing Weight 68.182, kg, Start date: 08/26/20 17:00:00 CDT, Duration: 30 day, Stop date: 09/25/20 9:00:00 CDT Metoprolol No 25 mg, 1 Mem oria Succinate 5-01 tab, l ER 25 mg 22:00: Route: PO, Her [place] oral 00 Drug form: tablet, ERTAB, extended BID, Start release date: 08/26/20 17:00:00 CDT, Duration: 30 day, Stop date: 09/25/20 9:00:00 CDT Ritalin No Notes: Memoria 5-01 (Same as l 18:00: :Ritalin) Ritalin No Notes: Memoria 5-01 (Same as l 18:00: :Ritalin) clobazam No Notes: Memoria 5-01 (Same as: l 16:52: Onfi) reserved for Neurology use only Bacitracin No 1 appl, Dannie pat 5-01 Route: l 16:52: TOP, [place] Daily, Drug form: OINT, Start date: 08/26/20 11:52:00 CDT, Duration: 30 day, Stop date: 09/25/20 9:00:00 CDT, 0 Lopressor No Notes: Memori a 5-01 (Same as: l 16:52: Lopressor) clobazam No Notes: Memoria 5-01 (Same as: l 16:52: Onfi) reserved for Neurology use only Bacitracin No 1 appl, Dannie pat 5-01 Route: l 16:52: TOP, [place] 00 Daily, Drug form: OINT, Start date: 08/26/20 11:52:00 CDT, Duration: 30 day, Stop date: 09/25/20 9:00:00 CDT, 0 Lopressor No Notes: Memori a 5-01 (Same as: l 16:52: Lopressor) Cozaar No Notes: Memoria 5-01 (Same as: l 16:51: Cozaar) 24 HR No Notes: Memoria Divalproex 5-01 Hazardous l Sodium 500 16:51: Drug Group H ermann MG Extended 00 2:Non-anti Release neoplastic Tablet Hazardous Drug -- Refer to safe handling procedure PPE Matrix (Same as: Depakote ER) Once daily dosing; indicated for migraines. Divalproex sodium extended-r elease tab. Do not chew or crush. Cozaar No Notes: Memoria 5-01 (Same as: l 16:51: Cozaar) Duy 00 24 HR No Notes: Memoria Divalproex 5-01 Hazardous l Sodium 500 16:51: Drug Group H ermann MG Extended 00 2:Non-anti Release neoplastic Tablet Hazardous Drug -- Refer to safe handling procedure PPE Matrix (Same as: Depakote ER) Once daily dosing; indicated for migraines. Divalproex sodium extended-r elease tab. Do not chew or crush. clobazam 10 Yes 10 mg, PO, Memoria mg oral 5-01 BID, # 60 l tablet 16:44: tab, 0 [place] 00 Refill(s) clobazam 10 Yes 10 mg, PO, Memoria mg oral 5-01 BID, # 60 l tablet 16:44: tab, 0 [place] 00 Refill(s) methylpheni 0 Yes 20 mg = 1 M emoria date 20 mg 5-01 tab, PO, l oral tablet 16:28: BID, Scottie n 00 breakfast and lunch, # 60 tab, 0 Refill(s) methylpheni 0 Yes 20 mg = 1 M emoria date 20 mg 5-01 tab, PO, l oral tablet 16:28: BID, Scottie n 00 breakfast and lunch, # 60 tab, 0 Refill(s) losartan 50 Yes 50 mg = 1 M emoria mg oral 5-01 tab, PO, l tablet 16:27: Daily, # [place] 00 30 tab, 0 Refill(s) 24 HR Yes 500 mg = 1 Memori a Divalproex 5-01 tab, PO, l Sodium 500 16:27: Q12H, 0 Herm shama MG Extended 00 Refill(s) Release Tablet Metoprolol Yes 25 mg = 1 Me moria Tartrate 25 5-01 tab, PO, l mg oral 16:27: BID, # 60 Brianna nn tablet 00 tab, 0 Refill(s) losartan 50 Yes 50 mg = 1 M emoria mg oral 5-01 tab, PO, l tablet 16:27: Daily, # Duy 00 30 tab, 0 Refill(s) 24 HR [...] 0 Refill(s) Lidocaine No Notes: Memori a 5-01 Apply only l 14:00: once for Duy 00 up to 12 hours in a 24-hour period (12 hours on and 12 hours off). (Same as: Aspercreme Lidocaine Patch) "Remove old patch before applicatio n of new patch" Lidocaine No Notes: Memori a 5-01 Apply only l 14:00: once for Duy 00 up to 12 hours in a 24-hour period (12 hours on and 12 hours off). (Same as: Aspercreme Lidocaine Patch) "Remove old patch before applicatio n of new patch" Lidocaine No Notes: Memori a Hydrochlori - (Same as: l de 10 MG/ML 13:00: Xylocaine) Duy Injectable 00 Solution Saline No 10 mL, Memoria Flush 0.9% 08-26 Route: l 13:00: IVP, Drug Form: INJ, Dosing Weight 68.182, kg, Q8H, Start date: 08/26/20 8:00:00 CDT, Duration: 30 day, Stop date: 09/25/20 0:00:00 CDT Lidocaine No Notes: Memori a Hydrochlori - (Same as: l de 10 MG/ML 13:00: Xylocaine) [place] Injectable 00 Solution Saline 2021-0 No 10 mL, Memoria Flush 0.9% 5-01 Route: l 13:00: IVP, Drug [place] 00 Form: INJ, Dosing Weight 68.182, kg, Q8H, Start date: 08/26/20 8:00:00 CDT, Duration: 30 day, Stop date: 09/25/20 0:00:00 CDT Saline No 10 mL, Memoria Flush 0.9% 5-01 Route: l 12:12: IVP, Drug [place] 00 Form: INJ, Dosing Weight 68.182, kg, PRN, PRN Line Flush, Start date: 08/26/20 7:12:00 CDT, Duration: 30 day, Stop date: 09/25/20 7:11:00 CDT Saline No 10 mL, Memoria Flush 0.9% 5-01 Route: l 12:12: IVP, Drug Duy 00 Form: INJ, Dosing Weight 68.182, kg, PRN, PRN Line Flush, Start date: 08/26/20 7:12:00 CDT, Duration: 30 day, Stop date: 09/25/20 7:11:00 CDT Saline No Notes: Memoria Flush 0.9% 5-01 (Same as: l 05:00: BD Duy 00 Posiflush) Saline No Notes: Memoria Flush 0.9% 5-01 (Same as: l 05:00: BD Duy 00 Posiflush) Docusate No Notes: Memoria 5-01 (Same as: l 02:00: Colace) Duy 00 (Do Not Crush) sennosides, No Notes: Dannie pat LONG-TERM 5-01 (Same as: l 02:00: Senokot) Duy 00 Saline No Notes: Memoria Flush 0.9% 5-01 (Same as: l 02:00: BD Duy 00 Posiflush) Docusate No Notes: Memoria 5-01 (Same as: l 02:00: Colace) Duy 00 (Do Not Crush) sennosides, No Notes: Dannie pat LONG-TERM 5-01 (Same as: l 02:00: Senokot) [place] 00 Saline No Notes: Memoria Flush 0.9% 5-01 (Same as: l 02:00: BD Duy 00 Posiflush) Lidocaine No Notes: Memori a Hydrochlori 5-01 (Same as: l de 10 MG/ML 01:00: Xylocaine) [place] Injectable 00 Solution Vancomycin No 2000 mg: Me moria 5-01 infuse l 01:00: over 2.5 [place] 00 hours For adult patients only: Round to nearest 250 mg per Medical Staff approval MEDICATION WASTE Product Size: 1000 mg Product Wasted: ___ mg Lidocaine No Notes: Memori a Hydrochlori 5-01 (Same as: l de 10 MG/ML 01:00: Xylocaine) [place] Injectable 00 Solution Vancomycin No 2000 mg: Me moria 5-01 infuse l 01:00: over 2.5 Duy 00 hours For adult patients only: Round to nearest 250 mg per Medical Staff approval MEDICATION WASTE Product Size: 1000 mg Product Wasted: ___ mg Saline No Notes: Memoria Flush 0.9% 5-01 (Same as: l 00:59: BD Duy 00 Posiflush) Saline No Notes: Memoria Flush 0.9% 5-01 (Same as: l 00:59: BD Duy 00 Posiflush) Sodium No 1,000 mL, Memori a Chloride - Rate: 50 l 0.9% IV 00:58: ml/hr, [place] 1,000 mL 00 Infuse over: 20 hr, Route: IV, Dosing Weight 69.091 kg, Total Volume: 1,000, Start date: 08/25/20 19:58:00 CDT, Duration: 30 day, Stop date: 09/24/20 19:57:00 CDT, 1.78, m2, 0 Acetaminoph No Notes: Do M emoria en - not exceed l 00:58: 4 gm/day. Duy 00 (Same as: Tylenol) Acetaminoph No Notes: Do M emoria en 325 MG / 08-26 not exceed l Hydrocodone 00:58: 4gm/day of Duy Bitartrate acetaminop 10 MG Oral hen. (Same Tablet as: [place] 325/10) Morphine No Notes: Memoria 5- (Same l 00:58: as:MORPhin e Sulfate) Bisacodyl No Notes: Memori a - (Same As: l 00:58: Dulcolax, Bisco-Lax) Ondansetron No Notes: Dannie pat 08-26 (Same as: l 00:58: Zofran) MEDICATION WASTE Product Size: 4 mg Product Wasted: ___ mg Hydralazine No Notes: Dannie pat 08-26 (Same as: l 00:58: Apresoline ) Push over 5 minutes Labetalol No 10 mg, 2 Dannie pat - mL, Route: l 00:58: IVP, Drug form: INJ, Q15Min, Dosing Weight 69.091, kg, PRN Hypertensi on, Start date: 08/25/20 19:58:00 CDT, Duration: 3 doses or times, Stop date: Limited # of times, 0 Saline No Notes: Memoria Flush 0.9% 08-26 (Same as: l 00:58: BD Posiflush) Sodium No 1,000 mL, Memori a Chloride 08-26 Rate: 50 l 0.9% IV 00:58: ml/hr, [place] 1,000 mL 00 Infuse over: 20 hr, Route: IV, Dosing Weight 69.091 kg, Total Volume: 1,000, Start date: 08/25/20 19:58:00 CDT, Duration: 30 day, Stop date: 09/24/20 19:57:00 CDT, 1.78, m2, 0 Acetaminoph No Notes: Do M emoria en 08-26 not exceed l 00:58: 4 gm/day. [place] 00 (Same as: Tylenol) Acetaminoph No Notes: Do M emoria en 325 MG / 08-26 not exceed l Hydrocodone 00:58: 4gm/day of [place] Bitartrate 00 acetaminop 10 MG Oral hen. (Same Tablet as: [place] 325/10) Morphine No Notes: Memoria 5- (Same l 00:58: as:MORPhin e Sulfate) Bisacodyl No Notes: Memori a 08-26 (Same As: l 00:58: Dulcolax, Bisco-Lax) Ondansetron No Notes: Dannie pat 08-26 (Same as: l 00:58: Zofran) MEDICATION WASTE Product Size: 4 mg Product Wasted: ___ mg Hydralazine No Notes: Dannie pat 08-26 (Same as: l 00:58: Apresoline ) Push over 5 minutes Labetalol No 10 mg, 2 Dannie pat - mL, Route: l 00:58: IVP, Drug form: INJ, Q15Min, Dosing Weight 69.091, kg, PRN Hypertensi on, Start date: 08/25/20 19:58:00 CDT, Duration: 3 doses or times, Stop date: Limited # of times, 0 Saline No Notes: Memoria Flush 0.9% 08-26 (Same as: l 00:58: BD Posiflush) Vancomycin No 1,000 mg, Me moria 08-25 Route: l 22:21: IVPB, Drug form: INJ, ONCE, Dosing Weight 69.091, kg, Priority: STAT, Start date: 08/25/20 17:21:00 CDT, Stop date: 08/25/20 17:21:00 CDT, ABX Indication : Bacteremia Vancomycin No 1,000 mg, Me moria 30 [...] day, # 28 tab, 0 Refill(s), Pharmacy: [facility] 256, 162.56, cm, 08/16/20 6:16:00 CDT, Height, 69.091, kg, 08/16/20 6:16:00 CDT, Weight Acetaminoph 0 Yes 1 - 2 tab, Memoria en 300 MG / 4-28 PO, Q4H, l Codeine 20:53: PRN Pain, Brianna nn Phosphate 00 X 4 day, # 30 MG Oral 36 tab, 0 Tablet Refill(s), [Tylenol Pharmacy: with [facility] Codeine #3] [facility] 256, 162.56, cm, 08/16/20 6:16:00 CDT, Height, 69.091, kg, 08/16/20 6:16:00 CDT, Weight tramadol Yes 100 mg = 1 Mem oria hydrochlori 4-28 tab, PO, l de 100 MG 20:53: Q6H, X 7 Herm shama Oral Tablet 00 day, # 28 tab, 0 Refill(s), Pharmacy: [facility] 256, 162.56, cm, 08/16/20 6:16:00 CDT, Height, 69.091, kg, 08/16/20 6:16:00 CDT, Weight Acetaminoph 0 Yes 1 - 2 tab, Memoria en 300 MG / 4-28 PO, Q4H, l Codeine 20:53: PRN Pain, Brianna nn Phosphate 00 X 4 day, # 30 MG Oral 36 tab, 0 Tablet Refill(s), [Tylenol Pharmacy: with [facility] Codeine #3] [facility] 256, 162.56, cm, 08/16/20 6:16:00 CDT, Height, [...] Health MG tablet 00:00: 00 traMADol 2020-0 2- No UT (Ultram) 50 4-28 05-04 Health MG tablet 00:00: 00:00 00 :00 Vancomycin 2020-0 No 2001 mg: Me moria 4-25 infuse l 21:00: over 2.5 Duy 00 hours For adult patients only: Round to nearest 250 mg per Medical Staff approval MEDICATION WASTE Product Size: 1000 mg Product Wasted: 0 mg Vancomycin 2020-0 No 2000 mg: Me moria 4-25 infuse l 21:00: over 2.5 Duy 00 hours For adult patients only: Round to nearest 250 mg per Medical Staff approval MEDICATION WASTE Product Size: 1000 mg Product Wasted: 0 mg Bacitracin 2020-0 No 1 appl, Dannie pat 4-25 Route: l 14:00: TOP, Duy Daily, Drug form: OINT, Start date: 08/20/20 9:00:00 CDT, Duration: 30 day, Stop date: 09/18/20 9:00:00 CDT, 0 Bacitracin 2020-0 No 1 appl, Dannie pat 4-25 Route: l 14:00: TOP, Duy Daily, Drug form: OINT, Start date: 08/20/20 9:00:00 CDT, Duration: 30 day, Stop date: 09/18/20 9:00:00 CDT, 0 heparin 2020-0 No Notes: Memoria 4-24 porcine l 21:00: heparin heparin 2020-0 No Notes: Memoria 4-24 porcine l 21:00: heparin glycopyrrol 2020-0 No Route: IV, Memoria ate (ANES) 4-23 Drug form: l 15:25: INJ, ONCE, Stop date: 08/18/20 10:25:00 CDT neostigmine 2020-0 No Route: IV, Memoria (ANES) 4-23 Drug form: l 15:25: INJ, ONCE, Stop date: 08/18/20 10:25:00 CDT glycopyrrol 2020-0 No Route: IV, Memoria ate (ANES) 4-23 Drug form: l 15:25: INJ, ONCE, Stop date: 08/18/20 10:25:00 CDT neostigmine 2020-0 No Route: IV, Memoria (ANES) 4-23 Drug form: l 15:25: INJ, ONCE, Stop date: 08/18/20 10:25:00 CDT ondansetron No Route: IV, Memoria (ANES) 4-23 Drug form: l 15:20: INJ, ONCE, Stop date: 08/18/20 10:20:00 CDT ondansetron 0 No Route: IV, Memoria (ANES) 4- Drug form: l 15:20: INJ, ONCE, Stop date: 08/18/20 10:20:00 CDT ketAMINE 2020-0 No Route: IV, Mem oria (ANES) 4- Drug form: l 14:09: INJ, ONCE, Stop date: 08/18/20 9:09:00 CDT ePHEDrine 0 No Route: IV, Me moria (ANES) 4- Drug form: l 14:09: INJ, ONCE, Stop date: 08/18/20 9:09:00 CDT ketAMINE 2020-0 No Route: IV, Mem oria (ANES) 4- Drug form: l 14:09: INJ, ONCE, Stop date: 08/18/20 9:09:00 CDT ePHEDrine 0 No Route: IV, Me moria (ANES) 4- Drug form: l 14:09: INJ, ONCE, Stop date: 08/18/20 9:09:00 CDT phenylephri 2020-0 No Route: IV, Memoria ne (ANES) 4- Drug form: l 13:53: INJ, ONCE, Stop date: 08/18/20 8:53:00 CDT phenylephri 2020-0 No Route: IV, Memoria ne (ANES) 4- Drug form: l 13:53: INJ, ONCE, Stop date: 08/18/20 8:53:00 CDT dexamethaso 2020-0 No Route: IV, Memoria ne (ANES) 4- Drug form: l 13:48: INJ, ONCE, Stop date: 08/18/20 8:48:00 CDT ceFAZolin 2020-0 No Route: IV, Me moria (ANES) 4- Drug form: l 13:48: INJ, ONCE, Stop date: 08/18/20 8:48:00 CDT dexamethaso No Route: IV, Memoria ne [...] lidocaine No Route: IV, Me moria (ANES) 4-23 Drug form: l 13:43: INJ, ONCE, Stop date: 08/18/20 8:43:00 CDT propofol No Route: IV, Mem oria (ANES) 4-23 Drug form: l 13:43: INJ, ONCE, Stop date: 08/18/20 8:43:00 CDT rocuronium No Route: IV, M emoria (ANES) 4-23 Drug form: l 13:43: INJ, ONCE, Stop date: 08/18/20 8:43:00 CDT fentaNYL 0 No Route: IV, Mem oria (ANES) 4-23 Drug form: l 13:43: INJ, ONCE, Stop date: 08/18/20 8:43:00 CDT midazolam No Route: IV, Me moria (ANES) 4-23 Drug form: l 13:43: SOLN, ONCE, Stop date: 08/18/20 8:43:00 CDT lidocaine 0 No Route: IV, Me moria (ANES) 4-23 Drug form: l 13:43: INJ, ONCE, Stop date: 08/18/20 8:43:00 CDT propofol 0 No Route: IV, Mem oria (ANES) 4-23 Drug form: l 13:43: INJ, ONCE, Stop date: 08/18/20 8:43:00 CDT rocuronium 2020-0 No Route: IV, M emoria (ANES) 08-18 Drug form: l 13:43: INJ, ONCE, [place] 00 Stop date: 08/18/20 8:43:00 CDT fentaNYL 2020-0 No Route: IV, Mem oria (ANES) 08-18 Drug form: l 13:43: INJ, ONCE, Duy Stop date: 08/18/20 8:43:00 CDT Labetalol 2020-0 No 10 mg, Memori a 08-18 Route: l 13:42: IVP, Duy 00 Q5Min, Dosing Weight 69.091, kg, PRN Elevated BP, Start date: 08/18/20 8:42:00 CDT, Duration: 5 doses or times, Stop date: Limited # of times Acetaminoph 2020-0 No 1,000 mg, M emoria en 08-18 Route: PO, l 13:42: Drug form: [place] 00 TAB, ONCE, Dosing Weight 69.091, kg, [...] oria ne 08-18 Route: l 13:42: IVP, Duy 00 Q5Min, Dosing Weight 69.091, kg, PRN Pain Score 7-10, Start date: 08/18/20 8:42:00 CDT, Duration: 4 doses or times, Stop date: Limited # of times Flumazenil 2020-0 No 0.2 mg, Dannie pat 08-18 Route: l 13:42: IVP, PRN, Duy 00 Dosing Weight 69.091, kg, PRN Benzodiaze pine Reversal, Initial dose, Start date: 08/18/20 8:42:00 CDT, Duration: 30 day, Stop date: 09/17/20 8:41:00 CDT Naloxone 1-0 No 0.4 mg, Memori a 08-18 Route: l 13:42: IVP, [place] 00 Q2MIN, Dosing Weight 69.091, kg, PRN Narcotic Reversal, Start date: 08/18/20 8:42:00 CDT, Duration: 8 doses or times, Stop date: Limited # of times Ondansetron 1-0 No 4 mg, Memor ia 08-18 Route: l 13:42: IVP, ONCE, [place] 00 Dosing Weight 69.091, kg, PRN Nausea & Vomiting, Start date: 08/18/20 8:42:00 CDT Labetalol 1-0 No 10 mg, Memori a 08-18 Route: l 13:42: IVP, Duy 00 Q5Min, Dosing Weight 69.091, kg, PRN Elevated BP, Start date: 08/18/20 8:42:00 CDT, Duration: 5 doses or times, Stop date: Limited # of times Acetaminoph 1-0 No 1,000 mg, M emoria en 08-18 Route: PO, l 13:42: Drug form: [place] 00 TAB, ONCE, Dosing Weight 69.091, kg, PRN Pain Score 1-3, Start date: 08/18/20 8:42:00 CDT Oxycodone 1-0 No 5 mg, Memoria Hydrochlori 08-18 Route: PO, l de 5 MG 13:42: Drug form: Herm shama Oral Tablet 00 TAB, Q4H, Dosing Weight 69.091, kg, PRN Pain Score 4-6, Start date: 08/18/20 8:42:00 CDT, Duration: 30 day, Stop date: 09/17/20 8:41:00 CDT Hydromorpho 1-0 No 0.5 mg, Mem oria ne 08-18 Route: l 13:42: IVP, [place] 00 Q5Min, Dosing Weight 69.091, kg, PRN Pain Score 7-10, Start date: 08/18/20 8:42:00 CDT, Duration: 4 doses or times, Stop date: Limited # of times Flumazenil 0 No 0.2 mg, Dannie pat 08-18 Route: l 13:42: IVP, PRN, [place] 00 Dosing Weight 69.091, kg, PRN Benzodiaze pine Reversal, Initial dose, Start date: 08/18/20 8:42:00 CDT, Duration: 30 day, Stop date: 09/17/20 8:41:00 CDT Naloxone No 0.4 mg, Memori a 08-18 Route: l 13:42: IVP, Duy Q2MIN, Dosing Weight 69.091, kg, PRN Narcotic Reversal, Start date: 08/18/20 8:42:00 CDT, Duration: 8 doses or times, Stop date: Limited # of times Ondansetron 0 No 4 mg, Memor ia 08-18 Route: l 13:42: IVP, ONCE, Dosing Weight 69.091, kg, PRN Nausea & Vomiting, Start date: 08/18/20 8:42:00 CDT Sodium No Route: IV, Memor ia Chloride 08-18 Drug form: l 0.9% IV 13:09: INJ, Start Herm shama (ANES) 98 00 date: mL + 08/18/20 dexmedetomi 8:09:00 dine (ANES) CDT, Stop 200 date: microgram 08/18/20 9:09:00 CDT Sodium 0 No Route: IV, Memor ia Chloride 08-18 Drug form: l 0.9% IV 13:09: INJ, Start Herm shama (ANES) 98 00 date: mL + 08/18/20 dexmedetomi 8:09:00 dine (ANES) CDT, Stop 200 date: microgram 08/18/20 9:09:00 CDT Isolyte S No Route: IV, Me moria PH 7.4 4-23 Total l (ANES) 1000 12:45: Volume: Her [place] mL 00 1,000, Start date: 08/18/20 7:45:00 CDT, Stop date: 08/18/20 8:45:00 CDT Isolyte S No Route: IV, Me moria PH 7.4 08-18 Total l (ANES) 1000 12:45: Volume: Her [place] mL 00 1,000, Start date: 08/18/20 7:45:00 CDT, Stop date: 08/18/20 8:45:00 CDT Famotidine No Notes: Memor ia 4-21 (Same as: l 14:00: Pepcid) Duy 00 Docusate No Notes: Memoria Sodium 100 4-21 (Same as: l MG Oral 14:00: Colace) Duy Capsule 00 (Do Not Crush) sennosides, No Notes: Dannie pat LONG-TERM 4-21 (Same as: l 14:00: Senokot) Saline No Notes: Memoria Flush 0.9% - (Same as: l 14:00: BD [place] 00 Posiflush) Ritalin No Notes: Memoria 4-21 (Same as l 14:00: :Ritalin) Duy 00 24 HR No Notes: Memoria Divalproex 4-21 Hazardous l Sodium 500 14:00: Drug Group H ermann MG Extended 00 2:Non-anti Release neoplastic Tablet Hazardous Drug -- Refer to safe handling procedure PPE Matrix (Same as: Depakote ER) Once daily dosing; indicated for migraines. Divalproex sodium extended-r elease tab. Do not chew or crush. Metoprolol No Notes: Memor ia Succinate 4-21 (Same as: l ER 25 mg 14:00: Toprol XL) Her [place] oral 00 Do Not tablet, Crush extended release Onfi No Notes: Memoria 4-21 (Same as: l 14:00: Onfi) reserved for Neurology use only 5 mg=1/2 X 10 mg TAB Famotidine No Notes: Memor ia 4-21 (Same as: l 14:00: Pepcid) [place] Docusate No Notes: Memoria Sodium 100 4-21 (Same as: l MG Oral 14:00: Colace) [place] Capsule 00 (Do Not Crush) sennosides, No Notes: Dannie pat LONG-TERM 4-21 (Same as: l 14:00: Senokot) Duy 00 Saline No Notes: Memoria Flush 0.9% 08-16 (Same as: l 14:00: BD Duy 00 Posiflush) Ritalin No Notes: Memoria -21 (Same as l 14:00: :Ritalin) [place] 00 24 HR No Notes: Memoria Divalproex 08-16 Hazardous l Sodium 500 14:00: Drug Group H ermann MG Extended 00 2:Non-anti Release neoplastic Tablet Hazardous Drug -- Refer to safe handling procedure PPE Matrix (Same as: Depakote ER) Once daily dosing; indicated for migraines. Divalproex sodium extended-r elease tab. Do not chew [...] Rate: 75 l 0.9% IV 09:17: ml/hr, [place] 1,000 mL 00 Infuse over: 13.3 hr, [...] Stop date: 09/15/20 4:16:00 CDT, 0 Glucagon 2020- No 1 mg, Memoria 08-16 Route: IM, l 09:17: Drug form: PDR/INJ, PRN, Dosing Weight 68.182, kg, PRN Blood Glucose Results, Start date: 08/16/20 4:17:00 CDT, Duration: 30 day, Stop date: 09/15/20 4:16:00 CDT, 0 Sodium 2020-0 No 1,000 mL, Memori a Chloride 08-16 Rate: 75 l 0.9% IV 09:17: ml/hr, [place] 1,000 mL 00 Infuse over: 13.3 hr, Route: IV, Dosing Weight 68.182 kg, Total Volume: 1,000, Start date: 08/16/20 4:17:00 CDT, Duration: 30 day, Stop date: 09/15/20 4:16:00 CDT, 1.78, m2, 0 Morphine No Notes: Memoria 08-16 (Same l 09:17: as:MORPhin e Sulfate) Labetalol No 10 mg, 2 Dannie pat -21 mL, Route: l 09:17: IVP, Drug form: [...] 08-16 Route: IM, l 09:17: Drug form: [place] 00 PDR/INJ, PRN, Dosing Weight 68.182, kg, PRN Blood Glucose Results, Start date: 08/16/20 4:17:00 CDT, Duration: 30 day, Stop date: 09/15/20 4:16:00 CDT, 0 Acetaminoph No Notes: Dannie pat en 325 MG / 08-16 (Same as: l Hydrocodone 09:16: [place] Brianna nn Bitartrate 00 325/5) Do 5 MG Oral not exceed Tablet 4gm/day of [[place] acetaminop 5/325] hen. Acetaminoph No Notes: Dannie pat en 325 MG / 4-21 (Same as: l Hydrocodone 09:16: [place] Brianna nn Bitartrate 00 325/5) Do 5 MG Oral not exceed Tablet 4gm/day of [[place] acetaminop 5/325] hen. Tylenol No Notes: Do Memor ia 4-21 not exceed l 09:15: 4 gm/day. [place] 00 (Same as: Tylenol) Tylenol No Notes: Do Memor ia 4-21 not exceed l 09:15: 4 gm/day. Duy 00 (Same as: Tylenol) Saline No Notes: Memoria Flush 0.9% 4-21 (Same as: l 08:02: BD [place] 00 Posiflush) Saline No Notes: Memoria Flush 0.9% 4-21 (Same as: l 08:02: BD [place] 00 Posiflush) methylpheni 0 Yes TAKE 1 UT date 4-21 TABLET BY Health (Ritalin) 00:00: MOUTH 20 MG 00 THREE tablet TIMES DAILY methylpheni 0 Yes TAKE 1 UT date 4-21 TABLET BY Health (Ritalin) 00:00: MOUTH 20 MG 00 THREE tablet TIMES DAILY methylpheni 2020-0 Yes TAKE 1 UT date 4-21 TABLET BY Health (Ritalin) 00:00: MOUTH 20 MG 00 THREE tablet TIMES DAILY methylpheni 2020-0 Yes TAKE 1 UT date 4-21 TABLET BY Health (Ritalin) 00:00: MOUTH 20 MG 00 THREE tablet TIMES DAILY methylpheni 0 Yes TAKE 1 UT date 4-21 TABLET [...] MG 00 THREE tablet TIMES DAILY methylpheni 0 Yes TAKE 1 UT date 4-21 TABLET BY Health (Ritalin) 00:00: MOUTH 20 MG 00 THREE tablet TIMES DAILY cloBAZam 2020-0 Yes UT (Onfi) 10 [...] 10 4-19 Health MG tablet 00:00: 00 losartan 1-0 [...] Health MG tablet 00:00: 00 losartan 2021-0 2022- No [facility] (Cozaar) 50 3-17 06-01 Health MG tablet 00:00: 00:00 00 :00 metoprolol 2021-0 Yes UT tartrate 2-24 Health (Lopressor) 00:00: 25 MG 00 tablet metoprolol 2020-0 Yes UT tartrate 2-24 Health (Lopressor) 00:00: 25 MG 00 tablet metoprolol 2021-0 Yes UT tartrate 2-24 Health (Lopressor) 00:00: 25 MG 00 tablet metoprolol 2021-0 Yes UT tartrate 2-24 Health (Lopressor) 00:00: 25 MG 00 tablet metoprolol 1-0 Yes UT tartrate 2-24 Health (Lopressor) 00:00: [...] 00 tablet metoprolol 2021-0 Yes UT tartrate 24 Health (Lopressor) 00:00: 25 MG 00 tablet metoprolol 2020-0 2021- No UT tartrate -24 06- Health (Lopressor) 00:00: 00:00 25 MG 00 :00 tablet gabapentin 2020-0 Yes UT (Neurontin) 9-26 Health [...] capsule 00 gabapentin 2020-0 Yes UT (Neurontin) 9- Health 100 MG 00:00: capsule 00 gabapentin 2020-0 Yes UT (Neurontin) 9- Health 100 MG 00:00: capsule 00 gabapentin [...] capsule 00 gabapentin 2020-0 Yes UT (Neurontin) 9- Health 100 MG 00:00: capsule 00 gabapentin 2020-0 Yes UT (Neurontin) 9- Health 100 MG 00:00: capsule 00 gabapentin 2020-0 Yes UT (Neurontin) 9- Health 100 MG 00:00: capsule 00 gabapentin 2020-0 Yes UT (Neurontin) 9- Health 100 MG 00:00: capsule 00 gabapentin 2020-0 Yes [facility] (Neurontin) - Health 100 MG 00:00: capsule 00 gabapentin 2020-0 Yes UT (Neurontin) 9- Health 100 MG 00:00: capsule 00 gabapentin 2020-0 Yes UT (Neurontin) 9- Health 100 MG 00:00: capsule 00 gabapentin 2020-0 Yes UT (Neurontin) 9-26 Health 100 MG 00:00: capsule 00 gabapentin 2020-0 Yes UT (Neurontin) 9- Health 100 MG 00:00: capsule 00 gabapentin 2020-0 Yes UT (Neurontin) 9- Health 100 MG 00:00: capsule 00 gabapentin 2020-0 Yes [facility] (Neurontin) - Health 100 MG 00:00: capsule 00 gabapentin 2020-0 Yes UT (Neurontin) 9- Health 100 MG 00:00: capsule 00 gabapentin 2020-0 Yes UT (Neurontin) 9- Health 100 MG 00:00: capsule 00 gabapentin 2020-0 Yes UT (Neurontin) 9-26 Health 100 MG 00:00: capsule 00 gabapentin 2020-0 Yes UT (Neurontin) 9- Health 100 MG 00:00: capsule 00 gabapentin 2020-0 Yes UT (Neurontin) 9- Health 100 MG 00:00: capsule 00 gabapentin 2020-0 Yes UT (Neurontin) 9- Health 100 MG 00:00: capsule 00 gabapentin 2020-0 Yes [facility] (Neurontin) - Health 100 MG 00:00: capsule 00 gabapentin 2020-0 2022- No UT (Neurontin) 01-21 06-01 Health 100 MG 00:00: 00:00 capsule 00 :00 CLOBAZAM 2020-0 Yes 10mg Q.5D Take 10 [...] 12:55: mouth Medical (MOVE FREE 32 daily. [place] [facility] ORAL) DOCOSAHEXAN 2020-0 Yes 1{capsu QD Take [address] OIC 9-10 le} capsule by Song ACID/EPA 12:55: mouth Medical (FISH OIL 32 daily. Center ORAL) Missing or 2020-0 Yes 1{tbl} QD [address] Non-Formula 9-10 daily. Samiakes ry 12:55: Medical Medication 32 Center gabapentin 2020-0 Yes 100mg Q.[id number] Take [address] [facility] (NEURONTIN) 9-10 [id number] mg by L ukes 100 MG 12:55: [...] Medication 32 Center gabapentin 2020-0 Yes 100mg Q.[id number] Take [address] [facility] (NEURONTIN) 9-10 [id number] mg by Kristina knight 100 MG 12:55: 3D mouth 3 Medical [...] [facility] tablet 12:55: mouth Medical 32 daily. [place] GLUCOSAM/CH 2020-0 Yes 2{tbl} QD Take 2 [...] Medication 32 Center gabapentin 2020-0 Yes 100mg Q.[id number] Take [address] [facility] [address] (NEURONTIN) 9-10 [id number] mg by L ukes 100 MG 12:55: [...] [facility] tablet 12:55: mouth Medical 32 daily. [place] GLUCOSAM/CH 2020-0 Yes 2{tbl} QD Take [address] OND/HYALU/C 9-10 tablets by Samia alexander F BORATE 12:55: mouth Medical (MOVE FREE 32 daily. [place] [facility] ORAL) DOCOSAHEXAN 2020-0 Yes 1{capsu QD Take [address] OIC 9-10 le} capsule by Song ACID/EPA 12:55: mouth Medical (FISH OIL 32 daily. Center ORAL) Missing or 2020-0 Yes 1{tbl} QD [address] Non-Formula 9-10 daily. [facility] 12:55: Medical Medication 32 Center gabapentin 2020-0 Yes 100mg Q.[id number] Take [address] [facility] [address] (NEURONTIN) 9-10 [id number] mg by Kristina orellanaes 100 MG 12:55: 3D mouth 3 [...] St MG chewable 9-10 by mouth 2 Smaia kes tablet 12:55: (two) Medical 32 times [...] Medication 32 Center gabapentin 2020-0 Yes 100mg Q.[id number] Take [address] [facility] [address] (NEURONTIN) 9-10 [id number] mg by L ukes 100 MG 12:55: [...] 12:55: mouth Medical (MOVE FREE 32 daily. [place] [facility] ORAL) DOCOSAHEXAN 2020-0 Yes 1{capsu QD Take [address] OIC 9-10 le} capsule by Song ACID/EPA 12:55: mouth Medical (FISH OIL 32 daily. Center ORAL) Missing or 2020-0 Yes 1{tbl} QD [address] Non-Formula 9-10 daily. [facility] 12:55: Medical Medication 32 Center gabapentin 2020-0 Yes 100mg Q.[id number] Take [address] [facility] [address] (NEURONTIN) 9-10 [id number] mg by Kristina ukes 100 MG 12:55: 3D mouth 3 [...] I St OND/HYALU/C 9-10 tablets by Samia HOUSERATE 12:55: mouth Medical (MOVE FREE 32 daily. [place] [facility] ORAL) DOCOSAHEXAN 2020-0 Yes 1{capsu QD Take [address] OIC 9-10 le} capsule by Song ACID/EPA 12:55: mouth Medical (FISH OIL 32 daily. Center ORAL) Missing or 2020-0 Yes 1{tbl} QD [address] Non-Formula 9-10 daily. [facility] 12:55: Medical Medication 32 Center gabapentin 2020-0 Yes 100mg Q.[id number] Take [address] [facility] [address] (NEURONTIN) 9-10 [id number] mg by L ukes 100 MG 12:55: [...] 12:55: mouth Medical (MOVE FREE 32 daily. [facility] ORAL) DOCOSAHEXAN 2020-0 Yes 1{capsu QD Take [address] OIC 9-10 le} capsule by Song ACID/EPA 12:55: mouth Medical (FISH OIL 32 daily. Center ORAL) Missing or 2020-0 Yes 1{tbl} QD [address] Non-Formula 9-10 daily. kes ry 12:55: Medical Medication 32 Center gabapentin 2020-0 Yes 100mg Q.[id number] Take [address] [facility] [address] (NEURONTIN) 9-10 [id number] mg by L ukes 100 MG 12:55: [...] [facility] tablet 12:55: mouth Medical 32 daily. [place] GLUCOSAM/CH 2020-0 Yes 2{tbl} QD Take [address] OND/HYALU/C 9-10 tablets by Samia kes F BORATE 12:55: mouth Medical (MOVE FREE 32 daily. [facility] ORAL) DOCOSAHEXAN 2020-0 Yes 1{capsu QD Take [address] OIC 9-10 le} capsule by [facility] ACID/EPA 12:55: mouth Medical (FISH OIL 32 daily. Center ORAL) Missing or 2020-0 Yes 1{tbl} QD [address] Non-Formula 9-10 daily. [facility] 12:55: Medical Medication 32 Center gabapentin 2020-0 Yes 100mg Q.[id number] Take [address] [facility] [address] (NEURONTIN) 9-10 [id number] mg by L ukes 100 MG 12:55: 3D mouth 3 Medical capsule 32 (three) Center times daily. divalproex 2020-0 Yes 500mg Take [address] (DEPAKOTE) 9-10 mg by [facility] 250 MG 24 12:55: mouth 2 Medic al hr tablet 32 (two) Center times daily with breakfast and dinner . divalproex 2020-0 Yes 500mg Take 500 [facility] [...] 12:55: mouth Medical (MOVE FREE 32 daily. [place] [facility] ORAL) DOCOSAHEXAN 2020-0 Yes 1{capsu QD Take [address] OIC 9-10 le} capsule by Song ACID/EPA 12:55: mouth Medical (FISH OIL 32 daily. Center ORAL) Missing or 2020-0 Yes 1{tbl} QD [address] Non-Formula 9-10 daily. Song ry 12:55: Medical Medication 32 Center gabapentin 2020-0 Yes 100mg Q.[id number] Take [address] [facility] (NEURONTIN) 9-10 [id number] mg by Kristina ukes 100 MG 12:55: 3D mouth 3 Medical capsule 32 (three) Center times daily. lisinopril- 2020-0 2020- No 1{tbl} Take [address] hydroCHLORO 9-10 09-10 tablet by Samia alexander thiazide 06:18: 00:00 mouth Medical (PRINZIDE,Z 30 :00 daily with Ce nter ESTORETIC) breakfast. 20-12.5 mg per tablet lisinopril- 2020-0 2020- No 1{tbl} Take [address] hydroCHLORO 9-10 09-10 tablet by Samia alexander thiazide 06:18: 00:00 mouth [facility] daily with Ce nter ESTORETIC) breakfast. 20-12.5 mg per tablet lisinopril- 2020-0 2020- No 1{tbl} Take [address] hydroCHLORO 9-10 09-10 tablet by Samia alexanedr thiazide 06:18: 00:00 mouth Medical (PRINZIDE,Z 30 :00 daily with Ce nter ESTORETIC) breakfast. 20-12.5 mg per tablet lisinopril- 2020-0 2020- No 1{tbl} Take [address] hydroCHLORO 9-10 09-10 tablet by Samia alexander thiazide 06:18: 00:00 mouth Medical (PRINZIDE,Z 30 :00 daily with Ce nter ESTORETIC) breakfast. 20-12.5 mg per tablet lisinopril- 2020-0 2020- No 1{tbl} Take [address] hydroCHLORO 9-10 09-10 tablet by Samia alexander thiazide 06:18: 00:00 mouth Medical (PRINZIDE,Z 30 :00 daily with Ce nter ESTORETIC) breakfast. 20-12.5 mg per tablet lisinopril- 2020-0 2020- No 1{tbl} Take [address] hydroCHLORO 9-10 09-10 tablet by Samia alexander thiazide 06:18: 00:00 mouth Medical (PRINZIDE,Z 30 :00 daily with Ce nter ESTORETIC) breakfast. 20-12.5 mg per tablet cloBAZam 2020-0 Yes 10mg Q12H Take [...] 9-10 Health 10 MG 00:00: tablet 00 aspirin 81 2020-0 Yes 81mg Q12H Chew 81 mg U T MG chewable 9-10 every 12 Heal th tablet 00:00: (twelve) 00 hours. metoprolol 2020-0 Yes 25mg Q12H Take [...] 9-10 Health 10 MG 00:00: tablet 00 aspirin 81 2020-0 Yes 81mg Q12H Chew 81 mg U T MG chewable 9-10 every 12 Heal th tablet 00:00: (twelve) 00 hours. aspirin 81 2020-0 Yes 81mg Q12H Chew 81 mg U T MG chewable 9-10 every 12 Heal th tablet 00:00: (twelve) 00 hours. atorvastati 2020-0 Yes [facility] n (Lipitor) 9-10 Health 10 MG 00:00: tablet 00 aspirin 81 2020-0 Yes 81mg Q12H Chew 81 mg U T MG chewable 9-10 every 12 Heal th tablet 00:00: (twelve) 00 hours. metoprolol 2020-0 Yes 25mg Q12H Take [...] Heal th tablet 00:00: (twelve) 00 hours. aspirin 81 2020-0 Yes 81mg Q12H [...] Heal th tablet 00:00: (twelve) 00 hours. aspirin 81 2020-0 Yes 81mg Q12H Chew 81 mg U T MG chewable 9-10 every 12 Heal th tablet 00:00: (twelve) 00 hours. aspirin 81 2020-0 Yes 81mg Q12H [...] tablet 00:00: (twelve) 00 hours. cloBAZam 2020-0 2022- No 10mg Q12H Take 10 mg UT (Onfi) 2.5 9-10 06-01 by mouth Heal th mg/mL 00:00: 00:00 every 12 suspension 00 :00 (twelve) hours. atorvastati 2021- No [facility] n (Lipitor) 01-05 Health 10 MG 00:00: 00:00 tablet 00 :00 metoprolol No 25mg Q12H Take 25 mg UT tartrate 01-05 by mouth Health (Lopressor) 00:00: 00:00 every 12 25 MG 00 :00 (twelve) tablet hours. divalproex No 500mg Take 500 U T (Depakote 01-05 mg by Health ER) 250 MG 00:00: 00:00 mouth. 24 hr 00 :00 tablet atorvastati 2019- No 10mg QD Take [address] [facility] (LIPITOR) 01-05 tablet (10 L ukes 10 MG 00:00: 23:59 mg total) [facility] tablet 00 :00 by [facility] Center nightly for 90 days. atorvastati 2019- No 10mg QD Take [address] [facility] (LIPITOR) 01-05 tablet (10 L ukes 10 MG 00:00: 23:59 mg total) [facility] tablet 00 :00 by mouth Center nightly for 90 days. atorvastati 2019- No 10mg QD Take [address] [facility] (LIPITOR) 01-05 tablet (10 L ukes 10 MG 00:00: 23:59 mg total) Medica [facility] tablet 00 :00 by mouth Center nightly for 90 days. atorvastati 2019- No 10mg QD Take [address] [facility] (LIPITOR) 01-05- tablet (10 L ukes 10 MG 00:00: 23:59 mg total) Medica [facility] tablet 00 :00 by mouth Center nightly for 90 days. atorvastati 2020- No 10mg QD Take [address] [facility] (LIPITOR) 9-02 06-09 tablet (10 L ukes 10 MG 00:00: 23:59 mg total) Medica [facility] tablet 00 :00 by mouth Center nightly for 90 days. atorvastati 2019- No 10mg QD Take [address] [facility] (LIPITOR) 9-02 06- tablet (10 L ukes 10 MG 00:00: [...] 00 every 8 (eight) hours. gabapentin 2020-0 2022- No 100mg Q8H Take 100 U T (Neurontin) 8-07 06-01 mg by Health 100 MG 00:00: 00:00 mouth capsule 00 :00 every 8 (eight) hours. cloBAZam 2020-0 Yes 1{tbl} Take 1 UT [...] MG tablet 00:00: mouth. 00 cloBAZam 2020-0 2021- No 1{tbl} Take 1 [facility] (Onfi) 10 3-02 06-01 tablet by [facility] MG tablet 00:00: 00:00 mouth. 00 :00 methylpheni 2019-0 Yes 20mg Take 20 mg UT date [...] 00:00: 20 MG 00 tablet methylpheni 2020-0 2022- No 20mg Take 20 mg UT date 1-24 06- by mouth. Health (Ritalin) 00:00: 00:00 20 MG 00 :00 tablet divalproex 2019-0 Yes 500mg Take 500 [...] mouth. 24 hr 00 tablet divalproex 2019-0 2022- No 500mg Take 500 [facility] T (Depakote 6-21 06-01 mg by Health ER) 500 MG 00:00: 00:00 mouth. 24 hr 00 :00 tablet dexamethaso Yes See Memori a ne 2 mg 5-07 Instructio l oral tablet 14:26: ns, 2 tab H ermann 00 PO BID x 2 days; 1 tab PO BID x 2 days; 1 tab QD x 3 days, # 30 tab, 0 Refill(s), Pharmacy: [place] [id number] Famotidine Yes 20 mg = 1 Me moria 20 MG Oral 5-07 tab, PO, l Tablet 14:26: BID, # 60 Scottie n [Pepcid] 00 tab, 0 Refill(s), Pharmacy: [place] [id number] dexamethaso Yes See Memori a ne 2 mg 5-07 Instructio l oral tablet 14:26: ns, 2 tab H ermann 00 PO BID x 2 days; 1 tab PO BID x 2 days; 1 tab QD x 3 days, # 30 tab, 0 Refill(s), Pharmacy: [facility] [id number] Famotidine Yes 20 mg = 1 Me moria 20 MG Oral 5-07 tab, PO, l Tablet 14:26: BID, # 60 Scottie n [Pepcid] 00 tab, 0 Refill(s), Pharmacy: [facility] [id number] Speech Yes See [facility] - Instructio l 19:50: ns, MISC, [place] 00 ONCALL, Evaluate and Treat 3 times per week for 4 weeks, # 12 bag, 0 Refill(s) Speech Yes See [facility] - Instructio l 19:50: ns, MISC, [place] 00 ONCALL, Evaluate and Treat 3 times per week for 4 weeks, # 12 bag, 0 Refill(s) Ritalin No Notes: Memoria 5-03 (Same l 15:15: as:Ritalin Ritalin No Notes: Memoria 5-03 (Same l 15:15: as:Ritalin Lisinopril No Notes: Memor ia - (Same as: l 14:00: Prinivil, [place] Zestril) 24 HR No Notes: [facility]oria Divalproex - (Same as: l Sodium 500 14:00: Depakote Her [place] MG Extended 00 ER) Once Release daily Tablet dosing; indicated for migraines. Divalproex sodium extended-r elease tab. Do not chew or crush. "Do Not Crush" Lisinopril No Notes: Memor ia 5-03 (Same as: l 14:00: Prinivil, [place] 00 Zestril) 24 HR No Notes: [facility]oria Divalproex 5-03 (Same as: l Sodium 500 14:00: Depakote Her [place] MG Extended 00 ER) Once Release daily Tablet dosing; indicated for migraines. Divalproex sodium extended-r elease tab. Do not chew or crush. "Do Not Crush" heparin No Notes: Memoria sodium, 5-03 porcine l porcine 13:00: heparin Duy 2500 UNT/ML 00 Injectable Solution heparin No Notes: [facility]oria sodium, 5-03 porcine l porcine 13:00: heparin Duy 2500 UNT/ML 00 Injectable Solution Saline No Notes: Memoria Flush 0.9% 5-03 (Same as: l 02:00: BD Duy 00 Posiflush) divalproex No Notes: Memor ia sodium 500 5-03 (Same as: l mg oral 02:00: Depakote Scottie n tablet, 00 ER) Once extended daily release(Dep dosing; akote ER) indicated for migraines. Divalproex sodium extended-r elease tab. Do not chew or crush. "Do Not Crush" Saline No Notes: Memoria Flush 0.9% 5-03 (Same as: l 02:00: BD Duy 00 Posiflush) divalproex No Notes: Memor ia sodium 500 5-03 (Same as: l mg oral 02:00: Depakote Scottie n tablet, 00 ER) Once extended daily release(Dep dosing; akote ER) indicated for migraines. Divalproex sodium extended-r elease tab. Do not chew or crush. "Do Not Crush" Cefazolin No Notes: Memori a 5-03 (Same as l 01:00: Ancef) Duy 00 Cefazolin No Notes: Memori a 5-03 (Same as l 01:00: Ancef) Onfi No Notes: Memoria 5-03 (Same as: l 00:00: Onfi) [place] 00 reserved for Neurology use only Onfi No Notes: Memoria 5-03 (Same as: l 00:00: Onfi) reserved for Neurology use only Dexamethaso No Notes: Dannie pat ne 5-02 Give with l 23:00: food. Duy 00 (Same As: Decadron) Dexamethaso No Notes: Dannie pat ne 5-02 Give with l 23:00: food. Duy 00 (Same As: Decadron) 24 HR No Notes: [facility]oria Metoprolol 5-02 (Same as: l Tartrate 25 22:00: Toprol XL) [place] MG Extended Do Not Release Crush Tablet [Toprol] Famotidine No Notes: Memor ia 20 MG Oral 5-02 (Same as: l Tablet 22:00: Pepcid) sennoside, No Notes: Dannie pat LONG-TERM 5-02 (Same as: l 22:00: Senokot) Docusate No Notes: Memoria 5-02 (Same as: l 22:00: Colace) (Do Not Crush) No 5 mg, Memoria 5-02 Route: PO, l 22:00: Drug form: TAB, BID, Dosing Weight 73.182, kg, Start date: 08/27/18 17:00:00 CDT, Duration: 30 day, Stop date: 09/26/18 9:00:00 CDT 24 HR No Notes: [facility]oria Metoprolol 5-02 (Same as: l Tartrate 25 22:00: Toprol XL) Duy MG Extended Do Not Release Crush Tablet [Toprol] Famotidine No Notes: Memor ia 20 MG Oral 5-02 (Same as: l Tablet 22:00: Pepcid) sennosides, No Notes: Dannie pat LONG-TERM 5-02 (Same as: l 22:00: Senokot) Docusate No Notes: Memoria 08-27 (Same as: l 22:00: Colace) [place] (Do Not Crush) Onfi No 5 mg, Memoria 08-27 Route: PO, l 22:00: Drug form: Duy 00 TAB, BID, Dosing Weight 73.182, kg, Start date: 08/27/18 17:00:00 CDT, Duration: 30 day, Stop date: 09/26/18 9:00:00 CDT Acetaminoph Yes 1 tab, PO, Memoria en 325 MG / 5-02 Q6H, PRN l Hydrocodone 21:54: for pain, H ermann Bitartrate 00 X 14 day, 10 MG Oral # 60 tab, Tablet 0 [[place] Refill(s) 10325] Docusate Yes 50 mg = 1 Dannie pat Sodium 50 5-02 cap, PO, l MG Oral 21:54: BID, # 20 Brianna nn Capsule 00 cap, 0 [Colace] Refill(s) Ondansetron Yes 4 mg = 1 Me moria 4 MG Oral 5-02 tab, PO, l Tablet 21:54: BID, PRN [place] [Zofran] 00 Nausea & Vomiting, # 30 tab, 0 Refill(s) tramadol Yes 50 mg = 1 Dannie pat hydrochlori 5-02 tab, PO, l de 50 MG 21:54: Q6H, PRN Brianna nn Oral Tablet 00 Pain, X 10 day, # 40 tab, 0 Refill(s) Promethazin Yes 12.5 mg = M emoria e 5-02 1 tab, PO, l Hydrochlori 21:54: Q6H, PRN He rmann de 12.5 MG 00 Nausea & Oral Tablet Vomiting, [Phenergan] # 28 tab, 0 Refill(s) Acetaminoph Yes 1 tab, PO, Memoria en 325 MG / 5-02 Q6H, PRN l Hydrocodone 21:54: for pain, H ermann Bitartrate 00 X 14 day, 10 MG Oral # 60 tab, Tablet 0 [[place] Refill(s) 10325] Docusate Yes 50 mg = 1 Dannie pat Sodium 50 5-02 cap, PO, l MG Oral 21:54: BID, # 20 Brianna nn Capsule 00 cap, 0 [Colace] Refill(s) Ondansetron Yes 4 mg = 1 Me moria 4 MG Oral 5-02 tab, PO, l Tablet 21:54: BID, PRN Duy [Zofran] 00 Nausea & Vomiting, # 30 tab, 0 Refill(s) tramadol Yes 50 mg = 1 Dannie pat hydrochlori -02 tab, PO, l de 50 MG 21:54: Q6H, PRN Brianna nn Oral Tablet 00 Pain, X 10 day, # 40 tab, 0 Refill(s) Promethazin Yes 12.5 mg = M emoria e 08-27 1 tab, PO, l Hydrochlori 21:54: Q6H, PRN He rmann de 12.5 MG 00 Nausea & Oral Tablet Vomiting, [Phenergan] # 28 tab, 0 Refill(s) acetaminoph No Route: IV, Memoria en (ANES) 08-27 Drug form: l 20:36: INJ, ONCE, Stop date: 08/27/18 15:36:00 CDT acetaminoph No Route: IV, Memoria en (ANES) - Drug form: l 20:36: INJ, ONCE, Stop date: 08/27/18 15:36:00 CDT Saline No Notes: [facility]oria Flush 0.9% 08-27 (Same as: l 20:23: BD Posiflush) Ondansetron No Notes: Dannie pat -02 (Same as: l 20:23: Zofran) MEDICATION WASTE [...] Notes: Memoria 5-02 Chlorasept l 20:23: ic [place] Duy (Same as: Chlorasept ic, Sore Throat [place]) WASTE: F/P - Black; E - Municipal Trash Bin Acetaminoph No Notes: Do M emoria en 325 MG / 5-02 not exceed l Hydrocodone 20:23: 4gm/day of Duy Bitartrate 00 acetaminop 10 MG Oral hen. (Same Tablet as: [place] [[place] 325/10) 10/325] Hydralazine No Notes: Dannie pat 5-02 (Same as: l 20:23: Apresoline ) Push over 5 minutes Dilaudid No Notes: Memoria 5-02 Same as l 20:23: Dilaudid Duy Benadryl No Notes: [facility]oria 5-02 (Same as: l 20:23: Benadryl) Duy 00 Melatonin 3 No Notes: Dannie pat MG Extended - (Same as: l Release 20:23: Melatonin) Herm shama Tablet 00 Tylenol No Notes: Do Memor ia 5-02 not exceed l 20:23: 4 gm/day. Duy 00 (Same as: Tylenol) Robaxin No Notes: Memoria 5-02 (Same l 20:23: as:Robaxin ) Bisacodyl No Notes: Memori a 5-02 (Same As: l 20:23: Dulcolax, Duy 00 Bisco-Lax) Reglan No Notes: Memoria 5-02 (Same as: l 20:23: Reglan) Duy Phenergan No Notes: Do Mem oria 5-02 not give l 20:23: IV push. Duy (Same as: Phenergan) Sodium No 1,000 mL, Memori a Chloride - Rate: 100 l 0.9% IV 20:23: ml/hr, [place] 1,000 mL 00 Infuse over: 10 hr, Route: IV, Dosing Weight 73.182 kg, Total Volume: 1,000, Start date: 08/27/18 15:23:00 CDT, Duration: 30 day, Stop date: 09/26/18 15:22:00 CDT, 1.84, m2 Saline No Notes: [facility] Flush 0.9% -02 [...] Notes: Memoria 5-02 Chlorasept l 20:23: ic [place] (Same as: Chlorasept ic, Sore Throat [place]) WASTE: F/P - Black; E - Municipal Trash Bin Acetaminoph No Notes: Do M emoria en 325 MG / 5-02 not exceed l Hydrocodone 20:23: 4gm/day of Bitartrate acetaminop 10 MG Oral hen. (Same Tablet as: [place] [[place] 325/10) 10/325] Hydralazine No Notes: Dannie pat 5-02 (Same as: l 20:23: Apresoline ) Push over 5 minutes Dilaudid No Notes: Memoria 5-02 Same as l 20:23: Dilaudid Duy Benadryl No Notes: [facility]oria 5-02 (Same as: l 20:23: Benadryl) [place] Melatonin 3 No Notes: Dannie pat MG Extended -02 (Same as: l Release 20:23: Melatonin) Herm shama Tablet 00 Tylenol No Notes: Do Memor ia 5-02 not exceed l 20:23: 4 gm/day. [place] 00 (Same as: Tylenol) Robaxin No Notes: Memoria 5-02 (Same l 20:23: as:Robaxin ) Bisacodyl No Notes: Memori a 5-02 (Same As: l 20:23: Dulcolax, Bisco-Lax) Reglan No Notes: Memoria 5-02 (Same as: l 20:23: Reglan) Phenergan No Notes: Do Mem oria 5-02 not give l 20:23: IV push. (Same as: Phenergan) Sodium No 1,000 mL, Memori a Chloride - Rate: 100 l 0.9% IV 20:23: ml/hr, Duy 1,000 mL 00 Infuse over: 10 hr, Route: IV, Dosing Weight 73.182 kg, Total Volume: 1,000, Start date: 08/27/18 15:23:00 CDT, Duration: 30 day, Stop date: 09/26/18 15:22:00 CDT, 1.84, m2 Flomax No Notes: Memoria 5-02 (Same As: l 20:22: Flomax) "Do Not Crush" Flomax No Notes: Memoria 5-02 (Same As: l 20:22: Flomax) Duy 00 "Do Not Crush" sugammadex No Notes: Memor ia 5-02 (Same as: l 19:49: [place]) sugammadex No Notes: Memor ia 5-02 (Same as: l 19:49: [place]) ondansetron No Route: IV, Memoria (ANES) 5-02 Drug form: l 19:45: INJ, ONCE, Stop date: 08/27/18 14:45:00 CDT ondansetron No Route: IV, Memoria (ANES) 5-02 Drug form: l 19:45: INJ, ONCE, Stop date: 08/27/18 14:45:00 CDT phenylephri No Route: IV, Memoria ne (ANES) 5-02 Drug form: l 100 18:36: INJ, Start [place] microgram 00 date: 08/27/18 13:36:00 CDT, Stop date: 08/27/18 14:36:00 CDT phenylephri 2019-0 No Route: IV, Memoria ne (ANES) 5- Drug form: l 100 18:36: INJ, Start [place] microgram 00 date: 08/27/18 13:36:00 CDT, Stop date: 08/27/18 14:36:00 CDT fentaNYL 2019-0 No Route: IV, Mem oria (ANES) 5- Drug form: l 18:18: INJ, ONCE, Stop date: 08/27/18 13:18:00 CDT rocuronium 2019-0 No Route: IV, M emoria (ANES) 5- Drug form: l 18:18: INJ, ONCE, Stop date: 08/27/18 13:18:00 CDT propofol 2019-0 No Route: IV, Mem oria (ANES) 5- Drug form: l 18:18: INJ, ONCE, Stop date: 08/27/18 13:18:00 CDT lidocaine 2019-0 No Route: IV, Me moria (ANES) 5- Drug form: l 18:18: INJ, ONCE, Stop date: 08/27/18 13:18:00 CDT fentaNYL 2019-0 No Route: IV, Mem oria (ANES) 5- Drug form: l 18:18: INJ, ONCE, Stop date: 08/27/18 13:18:00 CDT rocuronium 2019-0 No Route: IV, M emoria (ANES) 5- Drug form: l 18:18: INJ, ONCE, Stop date: 08/27/18 13:18:00 CDT propofol 2019-0 No Route: IV, Mem oria (ANES) 5-02 Drug form: l 18:18: INJ, ONCE, Stop date: 08/27/18 13:18:00 CDT lidocaine 2019-0 No Route: IV, Me moria (ANES) 5-02 Drug form: l 18:18: INJ, ONCE, Stop date: 08/27/18 13:18:00 CDT Ondansetron 2019-0 No Notes: Dannie pat 5-02 (Same as: l 18:01: Zofran) MEDICATION WASTE Product Size: 4 mg Product Wasted: ___ mg Fentanyl No Notes: Memoria 5-02 (Same as: l 18:01: Sublimaze) Preservati ve free. Flumazenil No Notes: Memor ia 5- (Same as: l 18:01: Romazicon) Naloxone No Notes: Memoria 5-02 Same as l 18:01: Narcan Oxycodone No Notes: Memori a - (Same as: l 18:01: Roxicodone ) Hydralazine No Notes: Dannie pat 5- (Same as: l 18:01: Apresoline ) Push over 5 minutes Labetalol No 10 mg, 2 Dannie pat 5-02 mL, Route: l 18:01: IVP, Drug form: INJ, Q5Min, Dosing Weight 73.182, kg, PRN Elevated BP, Start date: 08/27/18 13:01:00 CDT, Duration: 5 doses or times, Stop date: 08/28/18 0:00:00 CDT ANES No 0.625 mg, Memoria Enalaprilat 08-27 Route: l 18:01: IVP, [place] 00 Q5Min, Dosing Weight 73.182, kg, PRN Elevated BP, Start date: 08/27/18 13:01:00 CDT, Duration: 4 doses or times, Stop date: Limited # of times Ondansetron No Notes: Dannie pat 5-02 (Same as: l 18:01: Zofran) MEDICATION WASTE Product Size: 4 mg Product Wasted: ___ mg Fentanyl No Notes: Memoria 5-02 (Same as: l 18:01: Sublimaze) Preservati ve free. Flumazenil No Notes: Memor ia 5-02 (Same as: l 18:01: Romazicon) Naloxone No Notes: Memoria 5-02 Same as l 18:01: Narcan Oxycodone No Notes: Memori a - (Same as: l 18:01: Roxicodone ) Hydralazine No Notes: Dannei pat 08-27 (Same as: l 18:01: Apresoline ) Push over 5 minutes Labetalol No 10 mg, 2 Dannie pat - mL, Route: l 18:01: IVP, Drug form: INJ, Q5Min, Dosing Weight 73.182, kg, PRN Elevated BP, Start date: 08/27/18 13:01:00 CDT, Duration: 5 doses or times, Stop date: 08/28/18 0:00:00 CDT ANES No 0.625 mg, Memoria Enalaprilat 08-27 Route: l 18:01: IVP, Q5Min, Dosing Weight 73.182, kg, PRN Elevated BP, Start date: 08/27/18 13:01:00 CDT, Duration: 4 doses or times, Stop date: Limited # of times dexamethaso No Route: IV, Memoria ne (ANES) 08-27 Drug form: l 17:58: INJ, ONCE, Stop date: 08/27/18 12:58:00 CDT ceFAZolin No Route: IV, Me moria (ANES) 08-27 Drug form: l 17:58: INJ, ONCE, Stop date: 08/27/18 12:58:00 CDT dexamethaso No Route: IV, Memoria ne (ANES) 08-27 Drug form: l 17:58: INJ, ONCE, Stop date: 08/27/18 12:58:00 CDT ceFAZolin No Route: IV, Me moria (ANES) - Drug form: l 17:58: INJ, ONCE, Stop date: 08/27/18 12:58:00 CDT vasopressin 2018- No Route: IV, Memoria (ANES) 08-27 Drug form: l 17:53: INJ, ONCE, Stop date: 08/27/18 12:53:00 CDT phenylephri No Route: IV, Memoria ne (ANES) 08-27 Drug form: l 17:53: INJ, ONCE, Stop date: 08/27/18 12:53:00 CDT vasopressin No Route: IV, Memoria (ANES) 08-27 Drug form: l 17:53: INJ, ONCE, Stop date: 08/27/18 12:53:00 CDT phenylephri No Route: IV, Memoria ne (ANES) 08-27 Drug form: l 17:53: INJ, ONCE, Stop date: 08/27/18 12:53:00 CDT levETIRAcet No Route: IV, Memoria am (ANES) 08-27 Drug form: l 100 mg 16:53: INJ, Start date: 08/27/18 11:53:00 CDT, Stop date: 08/27/18 12:53:00 CDT levETIRAcet No Route: IV, Memoria am (ANES) 08-27 Drug form: l 100 mg 16:53: INJ, Start date: 08/27/18 11:53:00 CDT, Stop date: 08/27/18 12:53:00 CDT mannitol No Route: IV, Mem oria (ANES) 200 08-27 Drug form: l mg 16:51: INJ, Start date: 08/27/18 11:51:00 CDT, Stop date: 08/27/18 12:51:00 CDT mannitol No Route: IV, Mem oria (ANES) 200 08-27 Drug form: l mg 16:51: INJ, Start date: 08/27/18 11:51:00 CDT, Stop date: 08/27/18 12:51:00 CDT propofol No Route: IV, Mem oria (ANES) 10 08-27 Drug form: l mg 16:48: INJ, Start date: 08/27/18 11:48:00 CDT, Stop date: 08/27/18 12:48:00 CDT remifentani 2019-0 No Route: IV, Memoria l (ANES) 1 08-27 Drug form: l mg 16:48: INJ, Start [place] 00 date: 08/27/18 11:48:00 CDT, Stop date: 08/27/18 12:48:00 CDT propofol 2018-0 No Route: IV, Mem oria (ANES) 10 08-27 Drug form: l mg 16:48: INJ, Start Duy 00 date: 08/27/18 11:48:00 CDT, Stop date: 08/27/18 12:48:00 CDT remifentani No Route: IV, Memoria l (ANES) 1 08-27 Drug form: l mg 16:48: INJ, Start date: 08/27/18 11:48:00 CDT, Stop date: 08/27/18 12:48:00 CDT Sodium No Route: IV, Memor ia Chloride 5-02 Total l 0.9% IV 16:47: Volume: Duy (ANES) 500 00 500, Start mL date: 08/27/18 11:47:00 CDT, Stop date: 08/27/18 12:47:00 CDT Sodium No Route: IV, Memor ia Chloride 5-02 Total l 0.9% IV 16:47: Volume: Duy (ANES) 500 00 500, Start mL date: 08/27/18 11:47:00 CDT, Stop date: 08/27/18 12:47:00 CDT Lactated No Route: IV, Mem oria Ringers 5-02 Total l Injection 16:23: Volume: Brianna nn IV (ANES) 00 1,000, 1000 mL Start date: 08/27/18 11:23:00 CDT, Stop date: 08/27/18 12:23:00 CDT Lactated 0 No Route: IV, Mem oria Ringers 5-02 Total l Injection 16:23: Volume: Brianna nn IV (ANES) 00 1,000, 1000 mL Start date: 08/27/18 11:23:00 CDT, Stop date: 08/27/18 12:23:00 CDT Emend No Notes: Memoria 5-02 Same as: l 14:46: Emend restricted to the Hematology /Oncology service for high and moderate emetogenic regimen according to ASCO Guidelines [place] Only for Chemothera py-Induced nausea & vomiting Emend No Notes: Memoria 08-27 Same as: l 14:46: Emend Duy 00 restricted to the Hematology /Oncology service for high and moderate emetogenic regimen according to ASCO Guidelines [place] Only for Chemothera py-Induced nausea & vomiting ceFAZolin + No Notes: Dannie pat sterile 08-27 (Same As: l water 20 mL 10:00: Ancef, Herm shama 00 Kefzol) MEDICATION WASTE Product Size: 1000 mg Product Wasted: ___ mg ceFAZolin + No Notes: Dannie pat sterile 08-27 (Same As: l water 20 mL 10:00: Ancef, Herm shama 00 Kefzol) MEDICATION WASTE Product Size: 1000 mg Product Wasted: ___ mg metoprolol Yes 25 mg, PO, M emoria 25 mg oral 4-29 BID, 0 l tablet, 13:40: Refill(s) Brianna nn extended 00 release metoprolol Yes 25 mg, PO, M emoria 25 mg oral 4-29 BID, 0 l tablet, 13:40: Refill(s) Brianna nn extended 00 release clobazam 10 Yes 5 mg, PO, M emoria MG Oral 4-29 BID, 0 l Tablet 13:39: Refill(s) Scottie n [Onfi] clobazam 10 Yes 5 mg, PO, M emoria MG Oral 4-29 BID, 0 l Tablet 13:39: Refill(s) Scottie n [Onfi] 00 dexamethaso Yes See Memori a ne 1 mg 3-28 Instructio l oral tablet 21:59: ns, 2 tab H ermann 00 PO BID x 2 weeks, then 1 tab PO BID x 1 week, then 1 tab PO qd x 1 week, then stop, # 77 tab, 0 Refill(s), Pharmacy: [facility] [id number] Famotidine Yes 20 mg = 1 Me moria 20 MG Oral 3-28 tab, PO, l Tablet 21:59: BID, # 60 Scottie n [Pepcid] 00 tab, 0 Refill(s), Pharmacy: [facility] [facility] [id number] dexamethaso Yes See Memori a ne 1 mg 3-28 Instructio l oral tablet 21:59: ns, 2 tab H ermann 00 PO BID x 2 weeks, then 1 tab PO BID x 1 week, then 1 tab PO qd x 1 week, then stop, # 77 tab, 0 Refill(s), Pharmacy: [facility] [facility] [id number] Famotidine Yes 20 mg = 1 Me moria 20 MG Oral 3-28 tab, PO, l Tablet 21:59: BID, # 60 Scottie n [Pepcid] 00 tab, 0 Refill(s), Pharmacy: [facility] [facility] [id number] Methylpheni Yes 20 mg = 1 M emoria date 3-26 tab, PO, l Hydrochlori 21:31: BID, 0 Herm shama de 20 MG 00 Refill(s) Oral Tablet [Ritalin] 24 HR Yes 500 mg = 1 Memori a Divalproex 3-26 tab, PO, l Sodium 500 21:31: Daily, 0 Her [place] MG Extended 00 Refill(s) Release Tablet lisinopril Yes 20 mg = 1 Me moria 20 mg oral 3-26 tab, PO, l tablet 21:31: Daily, 0 [place] 00 Refill(s) Methylpheni Yes 20 mg = 1 M emoria date 3-26 tab, PO, l Hydrochlori 21:31: BID, 0 Herm shama de 20 MG 00 Refill(s) Oral Tablet [Ritalin] 24 HR Yes 500 mg = 1 Memori a Divalproex 3-26 tab, PO, l Sodium 500 21:31: Daily, 0 Her [place] MG Extended 00 Refill(s) Release Tablet lisinopril Yes 20 mg = 1 Me moria 20 mg oral 3-26 tab, PO, l tablet 21:31: Daily, 0 Duy 00 Refill(s) lisinopril Yes [facility] 20 mg 6-20 ity of tablet 00:00: [address] lisinopril Yes [facility] 20 mg 6-20 ity of tablet 00:00: [address] Branch lisinopril [address] Yes Univers 20 mg 6-20 ity of tablet 00:00: [facility] [place] lisinopril 2018-0 Yes Univers 20 mg 6-20 ity of tablet 00:00: [address] Branch lisinopril 2018-0 Yes [facility] 20 mg 6-20 ity of tablet 00:00: [address] Branch lisinopril 2018-0 Yes [facility] 20 mg 6-20 ity of tablet 00:00: [address] Branch lisinopril 2018-0 Yes [facility] 20 mg 6-20 ity of tablet 00:00: [address] Branch lisinopril 2018-0 Yes [facility] 20 mg 6-20 ity of tablet 00:00: [address] lisinopril 2018-0 Yes Univers 20 mg 6-20 ity of tablet 00:00: [address] Immunizations Ordered Filled Immunization Date Status Comments [facility] Immunization Name Name [id number] 2021-09-21 Completed Memor ial Duy RNA-1273vaxMODERNA< 00:00:00 sup>1</sup> [id number] 2021-09-21 Completed Memor ia [place] RNA-1273vaxMODERNA< 00:00:00 sup>1</sup> SARS-COV-2 COVID-19 2020-08-16 Completed Unive rsity of UNSPECIFIED VACCINE 00:00:00 [facility] SARS-COV-2 COVID-19 2020-08-16 Completed Unive rsity of UNSPECIFIED VACCINE 00:00:00 [facility] SARS-COV-2 COVID-19 2020-08-16 Completed Unive rsity of UNSPECIFIED VACCINE 00:00:00 [facility] SARS-COV-2 COVID-19 2020-08-16 Completed Unive rsity of UNSPECIFIED VACCINE 00:00:00 [facility] SARS-COV-2 COVID-19 2020-08-16 Completed Unive rsity of UNSPECIFIED VACCINE 00:00:00 [facility] SARS-COV-2 COVID-19 2020-08-16 Completed Unive rsity of UNSPECIFIED VACCINE 00:00:00 [facility] SARS-COV-2 COVID-19 2020-08-16 Completed Unive rsity of UNSPECIFIED VACCINE 00:00:00 [facility] SARS-COV-2 COVID-19 2020-08-16 Completed Unive rsity of UNSPECIFIED VACCINE 00:00:00 [facility] SARS-COV-2 COVID-19 2020-08-16 Completed Unive rsity of UNSPECIFIED VACCINE 00:00:00 [facility] [id number] 2020-07-22 Completed Memor ial Duy RNA-1273vaxMODERNA 00:00:00 [id number] 2020-07-22 Completed Memor ial Duy RNA-1273vaxMODERNA< 00:00:00 sup>2</sup> COVID-19 Moderna 12 2020-07-22 [facility]pleted [facility] 00:[facility]:00 ([employer] PREPAR[employer]) COVID-19 Moderna 12 2020-07-22 Completed [facility] 00:00:00 ([employer]ESS PREPARER) COVID-19 Moderna 12 2020-07-22 Completed [facility] 00:00:00 (HARNESS PREPARER) COVID-19 Moderna 18 2020-07-22 [facility] Vaccination 00:00:00 COVID-19 Moderna 12 2020-07-22 Completed [facility] 00:00:00 (HARNESS PREPARER) COVID-19 Moderna 12 2020-07-22 Completed [facility] 00:00:00 ([employer]ARNESS PREPARER) COVID-19 Moderna 12 2020-07-22 Completed [facility] 00:00:00 ([employer]ESS PREPARER) COVID-19 Moderna 12 2020-07-22 Completed [facility] 00:00:00 ([employer]ESS PREPARER) [id number] 2020-07-22 Completed Memor ial Duy RNA-1273vaxMODERNA 00:00:00 [id number] 2020-07-22 Completed Memor ial [place] RNA-1273vaxMODERNA< 00:00:00 sup>2</sup> SARS-COV-2 COVID-19 2020-07-18 Completed Unive rsity of UNSPECIFIED VACCINE 00:00:00 [facility] SARS-COV-2 COVID-19 2020-07-18 Completed Unive rsity of UNSPECIFIED VACCINE 00:00:00 [facility] SARS-COV-2 COVID-19 2020-07-18 Completed Unive rsity of UNSPECIFIED VACCINE 00:00:00 [facility] SARS-COV-2 COVID-19 2020-07-18 Completed [facility] UNSPECIFIED VACCINE 00:00:00 [facility] SARS-COV-2 COVID-19 2020-07-18 Completed [facility] UNSPECIFIED VACCINE 00:00:00 [facility] SARS-COV-2 COVID-19 2020-07-18 Completed [facility] UNSPECIFIED VACCINE 00:00:00 [facility] SARS-COV-2 COVID-19 2020-07-18 Completed [facility] UNSPECIFIED VACCINE 00:00:00 [facility] SARS-COV-2 COVID-19 2020-07-18 Completed [facility] UNSPECIFIED VACCINE 00:00:00 [facility] SARS-COV-2 COVID-19 2020-07-18 Completed [facility] UNSPECIFIED VACCINE 00:00:00 [facility] [id number] 2020-06-25 Completed [facility] [place] RNA-1273vaxMODERNA 00:00:00 [id number] 2020-06-25 Completed [facility] RNA-1273vaxMODERNA 00:00:00 [id number]-19m 2020-06-24 Completed [facility] RNA-1273vaxMODERNA 00:00:00 COVID-19 Moderna 12 2020-06-24 [facility] [facility]:00 ([employer] PREPARER) COVID-19 Moderna 12 2020-06-24 [facility]:00:00 (HARNESS PREPARER) COVID-19 Moderna 12 2020-06-24 [facility]:00:00 (HARNESS PREPARER) COVID-19 Moderna 18 2020-06-[facility] Vaccination 00:00:00 COVID-19 Moderna 12 2020-06-24 [facility]:00:00 (HARNESS PREPARER) COVID-19 Moderna 12 2020-06-24 [facility]:00:00 (HARNESS PREPARER) COVID-19 Moderna 12 2020-06-24 [facility]pleted [facility]:00:00 (HARNESS PREPARER) COVID-19 Moderna 12 2020-06-24 [facility]:00 (HARNESS PREPARER) [id number] 2020-06-24 Completed [facility] RNA-1273vaxMODERNA 00:00:00 Influenza Virus 2019-09-08 [facility]pleted [facility] [place] [facility] [place] TDAP 2019-06-13 Completed [facility] 00:00:00 [facility] TDAP 2019-06-13 Completed [facility] 00:00:00 [facility] TDAP 2019-06-13 Completed [facility] 00:00:00 [facility] TDAP 2019-06-13 Completed [facility] 00:00:00 [facility] TDAP 2019-06-13 Completed [facility] 00:00:00 [facility] TDAP 2019-06-13 Completed [facility] 00:00:00 [facility] TDAP 2019-06-13 Completed [facility] 00:00:00 [facility] TDAP 2019-06-13 Completed [facility] 00:00[facility]00 [facility] TDAP 2019-06-13 Completed [facility] 00:00:00 [facility] Influenza Virus 2019-02-22 Completed [facility] [...] [facility] Vaccine [facility] 00:00:00 [facility] IM, Preserv and ABX Branc h Free 18-64 YRS Vital Signs Vital Name Observation Time Observation Value Comments Source Systolic blood 2022-04-03 19:25:00 131 mm[Hg] [facility] Diastolic blood 2022-04-03 19:25:00 85 mm[Hg] [facility] Heart rate 2022-04-03 19:25:00 73 [facility]min [facility] temperature 2022-04-03 19:25:00 [facility] height 2022-04-03 19:25:00 [facility]6 [facility] weight 2022-04-03 19:25:00 [facility]7 [facility] BMI 2022-04-03 19:25:00 21.46 [facility]2 [facility] Systolic blood 2022-02-18 16:24:00 110 mm[Hg] [facility] s[facility] of pressure [facility] Diastolic blood 2022-02-18 16:24:00 72 mm[Hg] Unive rsity of pressure [facility] Heart rate 2022-02-18 16:24:00 [facility] 2022-02-18 16:24:00 57.335 kg [facility] BMI 2022-02-18 16:24:00 21.70 kg/m2 [facility] Oxygen saturation in 2022-02-18 16:24:00 99 /min [facility] Arterial blood by [facility] Pulse oximetry Branch Systolic blood 2022-02-08 15:13:00 114 mm[Hg] [facility] Diastolic blood 2022-02-08 15:13:00 72 mm[Hg] [facility] Heart rate 2022-02-08 15:13:00 76 /min [facility] temperature 2022-02-08 15:13:00 [facility].67 [facility] Body height 2022-02-08 15:13:00 [facility].6 cm [facility] Body weight 2022-02-08 15:13:00 58[facility]968 [facility] BMI 2022-02-08 15:13:00 22.31 kg[facility]m2 [facility] Systolic blood 2021-12-26 18:11:00 114 mm[Hg] [facility] Diastolic blood 2021-12-26 18:11:00 74 mm[Hg] [facility] Heart rate 2021-12-26 18:11:00 75 /min [facility] temperature 2021-12-26 18:11:00 [facility].89 [facility] Systolic blood 2021-12-12 18:14:00 115 mm[Hg] [facility] Diastolic blood 2021-12-12 18:14:00 70 mm[Hg] [facility] Heart rate 2021-12-12 18:14:00 84 /min [facility] temperature 2021-12-12 18:14:00 [facility].83 [facility] Systolic blood 2021-12-05 19:20:00 111 mm[Hg] [facility] Diastolic blood 2021-12-05 19:20:00 75 mm[Hg] [facility] Heart rate 2021-12-05 19:20:00 94 /min [facility] temperature 2021-12-05 19:20:00 36.5 [facility] Systolic blood 2021-11-21 20:38:00 112 mm[Hg] [facility] Diastolic blood 2021-11-21 20:38:00 72 mm[Hg] [facility] Heart rate 2021-11-21 20:38:00 87 /min [facility] temperature 2021-11-21 20:38:00 [facility].89 [facility] Systolic blood 2021-10-26 21:17:00 132 mm[Hg] Univer sity of pressure [facility] Diastolic blood 2021-10-26 21:17:00 75 mm[Hg] Unive rsity of pressure [facility] Heart rate 2021-10-26 21:17:00 99 /min [facility] Systolic blood 2021-09-26 20:46:00 117 mm[Hg] [facility] Diastolic blood 2021-09-26 20:46:00 71 mm[Hg] [facility] Heart rate 2021-09-26 20:46:00 85 /min [facility] temperature 2021-09-26 20:46:00 36.5 [facility] Systolic blood 2021-09-05 18:11:00 122 mm[Hg] [facility] [...] 2021-06-27 18:13:00 24.03 kg[facility]m2 [facility] Systolic blood 2021-04-25 16:00:00 117 mm[Hg] [facility] Diastolic blood 2021-04-25 16:00:00 80 mm[Hg] [facility] Heart rate 2021-04-25 16:00:00 101 /min [facility] Body temperature 2021-04-25 16:00:00 36.44 [...] 2020-12-06 18:59:00 25.75 [facility]2 [facility] Heart Rate 2021-12-01 16:31:41 [facility] Respitory Rate 2021-12-01 16:31:41 [facility] Temperature Oral (F) 2021-12-01 16:31:29 98.9 F [facility] Systolic (mm Hg) 2021-12-01 16:31:14 [facility] [place] Diastolic (mm Hg) 2021-12-01 16:31:14 [facility] [place] Heart Rate 2021-12-01 16:31:14 [facility] Heart Rate 2021-12-01 12:27:16 [facility] Respitory Rate 2021-12-01 12:27:16 [facility] [place] Systolic (mm Hg) 2021-12-01 12:27:06 [facility] Diastolic (mm Hg) 2021-12-01 12:27:06 [facility] [place] Temperature Oral (F) 2021-12-01 12:27:06 98.2 F [facility] Respitory Rate 2021-12-01 08:22:43 [facility] [place] Systolic (mm Hg) 2021-12-01 08:22:28 [facility] Diastolic (mm Hg) 2021-12-01 08:22:28 [facility] [place] Temperature Oral (F) 2021-12-01 05:06:39 98.2 F [facility] Height 2021-11-30 12:17:00 162.56 cm [facility] Weight 2021-11-30 12:17:00 [facility] BMI Calculated 2021-11-30 12:17:00 [facility] [place] Height 2021-11-28 16:33:00 162.56 cm [facility] Weight 2021-11-28 16:33:00 [facility] BMI Calculated 2021-11-28 16:33:00 [facility] Heart Rate 2021-11-14 12:52:18 [facility] Respitory Rate 2021-11-14 12:52:18 [facility] [place] Temperature Oral (F) 2021-11-14 12:51:48 98 F [facility] Systolic (mm Hg) 2021-11-14 12:51:35 [facility] Diastolic (mm Hg) 2021-11-14 12:51:35 [facility] Heart Rate 2021-11-14 12:51:35 [facility] Heart Rate 2021-11-14 07:48:30 [facility] Respitory Rate 2021-11-14 07:48:30 [facility] Temperature Oral (F) 2021-11-14 07:48:00 97.6 F [facility] Systolic (mm Hg) 2021-11-14 07:47:39 [facility] Diastolic (mm Hg) 2021-11-14 07:47:39 [facility] Respitory Rate 2021-11-14 04:25:51 [facility] [place] Systolic (mm Hg) 2021-11-14 04:25:38 [facility] [place] Diastolic (mm Hg) 2021-11-14 04:25:38 [facility] [place] Temperature Oral (F) 2021-11-14 04:25:33 98.8 F [facility] Height 2021-11-08 13:33:00 162.56 cm [facility] Weight 2021-11-08 13:33:00 [facility] BMI Calculated 2021-11-08 13:33:00 [facility] Height 2021-11-06 13:02:00 162.56 cm [facility] Weight 2021-11-06 13:02:00 [facility] BMI Calculated 2021-11-06 13:02:00 [facility] [place] Respitory Rate 2021-08-23 22:38:00 [facility] Systolic (mm Hg) 2021-08-23 22:38:00 [facility] Diastolic (mm Hg) 2021-08-23 22:38:00 [facility] Respitory Rate 2021-08-23 21:45:00 [facility] [place] Systolic (mm Hg) 2021-08-23 21:45:00 [facility] Diastolic (mm Hg) 2021-08-23 21:45:00 [facility] [place] Respitory Rate 2021-08-23 21:30:00 [facility] Systolic (mm Hg) 2021-08-23 21:30:00 [facility] [place] Diastolic (mm Hg) 2021-08-23 21:30:00 [facility] Height 2021-08-23 15:31:00 162.56 cm [facility] Weight 2021-08-23 15:31:00 [facility] [place] BMI Calculated 2021-08-23 15:31:00 [facility] [place] Heart Rate 2021-08-23 15:31:00 [facility] Height 2021-08-21 17:09:00 162.56 cm [facility] Weight 2021-08-21 17:09:00 [facility] BMI Calculated 2021-08-21 17:09:00 [facility] Heart Rate 2021-08-04 16:58:28 [facility] Respitory Rate 2021-08-04 16:58:28 [facility] Systolic (mm Hg) 2021-08-04 16:58:23 [facility] [place] Diastolic (mm Hg) 2021-08-04 16:58:23 [facility] [place] Heart Rate 2021-08-04 16:58:23 [facility] [place] Temperature Oral (F) 2021-08-04 16:57:50 98.8 F [facility] Heart Rate 2021-08-04 14:09:08 [facility] Respitory Rate 2021-08-04 14:09:08 [facility] Systolic (mm Hg) 2021-08-04 14:09:01 [facility] Diastolic (mm Hg) 2021-08-04 14:09:01 [facility] [place] Temperature Oral (F) 2021-08-04 14:09:00 97.6 F [facility] Respitory Rate 2021-08-04 08:18:30 [facility] [place] Systolic (mm Hg) 2021-08-04 08:18:20 [facility] Diastolic (mm Hg) 2021-08-04 08:18:20 [facility] Temperature Oral (F) 2021-08-04 08:18:13 98 F [facility] Height 2021-08-03 03:00:00 160.02 cm [facility] Weight 2021-08-03 03:00:00 [facility] BMI Calculated 2021-08-03 03:00:00 [facility] [place] Height 2021-08-02 14:47:00 162.56 cm [facility] Weight 2021-08-02 14:47:00 [facility] BMI Calculated 2021-08-02 14:47:00 [facility] Height 2021-07-31 15:58:00 162.56 cm [facility] Weight 2021-07-31 15:58:00 [facility] [place] BMI Calculated 2021-07-31 15:58:00 [facility] Temperature Oral (F) 2021-03-17 14:50:00 98.2 F [facility] Respitory Rate 2021-03-17 14:50:00 [facility] Systolic (mm Hg) 2021-03-17 14:50:00 [facility] [place] Diastolic (mm Hg) 2021-03-17 14:50:00 [facility] [place] Respitory Rate 2021-03-17 13:30:00 [facility] Systolic (mm Hg) 2021-03-17 13:30:00 [facility] Diastolic (mm Hg) 2021-03-17 13:30:00 [facility] [place] Respitory Rate 2021-03-17 12:12:00 [facility] Systolic (mm Hg) 2021-03-17 12:12:00 [facility] Diastolic (mm Hg) 2021-03-17 12:12:00 [facility] [place] Weight 2021-03-17 09:36:00 [facility] Heart Rate 2021-03-17 09:36:00 [facility] Temperature Oral (F) 2021-03-17 09:36:00 98.3 F [facility] Systolic (mm Hg) 2021-03-15 20:06:00 [facility] [place] Diastolic (mm Hg) 2021-03-15 20:06:00 [facility] [place] Heart Rate 2021-03-15 20:06:00 [facility] [place] Temperature Oral (F) 2021-03-15 20:06:00 98.7 F [facility] Respitory Rate 2021-03-15 20:06:00 [facility] Temperature Oral (F) 2021-03-15 16:51:00 98.1 F [facility] Systolic (mm Hg) 2021-03-15 16:51:00 [facility] Diastolic (mm Hg) 2021-03-15 16:51:00 [facility] [place] Respitory Rate 2021-03-15 16:51:00 [facility] Heart Rate 2021-03-15 16:51:00 [facility] [place] Systolic (mm Hg) 2021-03-15 14:16:00 [facility] [place] Diastolic (mm Hg) 2021-03-15 14:16:00 [facility] [place] Respitory Rate 2021-03-15 14:16:00 [facility] [place] Temperature Oral (F) 2021-03-14 22:00:00 98.4 F [facility] Heart Rate 2021-03-14 14:46:00 [facility] [place] Temperature Oral (F) 2021-03-05 05:33:00 97.5 F [facility] Heart Rate 2021-03-05 05:33:00 [facility] [place] Respitory Rate 2021-03-05 05:33:00 [facility] Systolic (mm Hg) 2021-03-05 05:33:00 [facility] Diastolic (mm Hg) 2021-03-05 05:33:00 [facility] [place] Temperature Oral (F) 2021-03-05 01:29:00 99.2 F [facility] Heart Rate 2021-03-05 01:29:00 [facility] [place] Respitory Rate 2021-03-05 01:29:00 [facility] Systolic (mm Hg) 2021-03-05 01:29:00 [facility] [place] Diastolic (mm Hg) 2021-03-05 01:29:00 [facility] Temperature Oral (F) 2021-03-04 17:30:00 98 F [facility] Heart Rate 2021-03-04 17:30:00 [facility] [place] Respitory Rate 2021-03-04 17:30:00 [facility] Systolic (mm Hg) 2021-03-04 17:30:00 [facility] [place] Diastolic (mm Hg) 2021-03-04 17:30:00 [facility] Height 2021-03-01 01:13:00 162.56 cm [facility] Weight 2021-03-01 01:13:00 [facility] BMI Calculated 2021-03-01 01:13:00 [facility] [place] Weight 2021-02-28 20:29:00 [facility] [place] Systolic (mm Hg) 2021-02-28 20:29:00 [facility] [place] Diastolic (mm Hg) 2021-02-28 20:29:00 [facility] Heart Rate 2021-02-28 20:29:00 [facility] Respitory Rate 2021-02-28 20:29:00 [facility] [place] Temperature Oral (F) 2021-02-28 20:29:00 98.0 F [facility] Heart Rate 2021-01-24 00:20:00 [facility] [place] Respitory Rate 2021-01-24 00:20:00 [facility] [place] Systolic (mm Hg) 2021-01-24 00:20:00 [facility] [place] Diastolic (mm Hg) 2021-01-24 00:20:00 [facility] Heart Rate 2021-01-23 20:29:00 [facility] Respitory Rate 2021-01-23 20:29:00 [facility] Systolic (mm Hg) 2021-01-23 20:29:00 [facility] Diastolic (mm Hg) 2021-01-23 20:29:00 [facility] [place] Heart Rate 2021-01-23 16:38:00 [facility] Respitory Rate 2021-01-23 16:38:00 [facility] Systolic (mm Hg) 2021-01-23 16:38:00 [facility] Diastolic (mm Hg) 2021-01-23 16:38:00 [facility] [place] Temperature Oral (F) 2021 16:25:00 98.5 F [facility] Temperature Oral (F) 2021 15:57:00 97.9 F [facility] Heart Rate 2021 00:39:00 [facility] [place] Respitory Rate 2021 00:39:00 [facility] [place] Systolic (mm Hg) 2021 00:39:00 [facility] Diastolic (mm Hg) 2021 00:39:00 [facility] Temperature Oral (F) 2021-01-21 17:26:00 97.7 F [facility] Heart Rate 2021-01-21 17:26:00 [facility] Systolic (mm Hg) 2021-01-21 17:26:00 [facility] [place] Diastolic (mm Hg) 2021-01-21 17:26:00 [facility] [place] Respitory Rate 2021-01-21 17:26:00 [facility] Heart Rate 2021-01-21 08:55:00 [facility] Respitory Rate 2021-01-21 08:55:00 [facility] Systolic (mm Hg) 2021-01-21 08:55:00 [facility] [place] Diastolic (mm Hg) 2021-01-21 08:55:00 [facility] Temperature Oral (F) 2021-01-20 22:15:00 98.0 F [facility] Temperature Oral (F) 2021-01-20 16:38:00 98.4 F [facility] Height 2021-01-13 11:42:00 162.56 cm [facility] Weight 2021-01-13 11:42:00 [facility] Height 2021-01-06 17:18:00 162.56 cm [facility] Height 2021-01-06 13:46:00 162.56 cm [facility] Respitory Rate 2020-12-25 07:00:00 [facility] [place] Respitory Rate 2020-12-25 06:00:00 [facility] Respitory Rate 2020-12-25 05:00:00 [facility] Systolic (mm Hg) 2020-12-25 05:00:00 [facility] Diastolic (mm Hg) 2020-12-25 05:00:00 [facility] [place] Systolic (mm Hg) 2020-12-25 02:00:00 [facility] [place] Diastolic (mm Hg) 2020-12-25 02:00:00 [facility] [place] Systolic (mm Hg) 2020-12-25 01:00:00 [facility] Diastolic (mm Hg) 2020-12-25 01:00:00 [facility] [place] Temperature Oral (F) 2020-12-24 21:00:00 100.2 F [facility] Temperature Oral (F) 2020-12-24 17:00:00 99.1 F [facility] Temperature Oral (F) 2020-12-24 13:39:00 98 F [facility] Temperature Oral (F) 2020-12-18 05:15:00 98.3 F [facility] Systolic (mm Hg) 2020-12-18 05:00:00 [facility] [place] Diastolic (mm Hg) 2020-12-18 05:00:00 [facility] Respitory Rate 2020-12-18 05:00:00 [facility] [place] Systolic (mm Hg) 2020-12-18 04:00:00 [facility] Diastolic (mm Hg) 2020-12-18 04:00:00 [facility] Respitory Rate 2020-12-18 04:00:00 [facility] Systolic (mm Hg) 2020-12-18 03:00:00 [facility] [place] Diastolic (mm Hg) 2020-12-18 03:00:00 [facility] Respitory Rate 2020-12-18 03:00:00 [facility] [place] Temperature Oral (F) 2020-12-18 02:07:00 99.4 F [facility] Temperature Oral (F) 2020-12-17 21:34:00 98.6 F [facility] Heart Rate 2020-12-16 17:30:00 [facility] Heart Rate 2020-12-16 13:24:00 [facility] Heart Rate 2020-12-16 08:54:00 [facility] Height 2020-12-16 04:35:00 162.56 cm [facility] Weight 2020-12-16 04:35:00 [facility] BMI Calculated 2020-12-16 04:35:00 [facility] [place] Height 2020-12-15 12:30:00 162.56 cm [facility] Weight 2020-12-15 12:30:00 [facility] BMI Calculated 2020-12-15 12:30:00 [facility] [place] Height 2020-12-13 15:50:00 162.56 cm [facility] Weight 2020-12-13 15:50:00 [facility] BMI Calculated 2020-12-13 15:50:00 [facility] [place] Temperature Oral (F) 2020-09-22 20:26:00 98.1 F [facility] Heart Rate 2020-09-22 20:26:00 [facility] [place] Respitory Rate 2020-09-22 20:26:00 [facility] [place] Systolic (mm Hg) 2020-09-22 20:26:00 [facility] [place] Diastolic (mm Hg) 2020-09-22 20:26:00 [facility] Temperature Oral (F) 2020-09-22 16:04:00 97.5 F [facility] Heart Rate 2020-09-22 16:04:00 [facility] [place] Respitory Rate 2020-09-22 16:04:00 [facility] Systolic (mm Hg) 2020-09-22 16:04:00 [facility] Diastolic (mm Hg) 2020-09-22 16:04:00 [facility] Temperature Oral (F) 2020-09-22 12:02:00 98.1 F [facility] Heart Rate 2020-09-22 12:02:00 [facility] [place] Respitory Rate 2020-09-22 12:02:00 [facility] [place] Systolic (mm Hg) 2020-09-22 12:02:00 [facility] Diastolic (mm Hg) 2020-09-22 12:02:00 [facility] [place] Systolic (mm Hg) 2020-09-18 08:00:00 [facility] [place] Diastolic (mm Hg) 2020-09-18 08:00:00 [facility] Respitory Rate 2020-09-18 08:00:00 [facility] [place] Respitory Rate 2020-09-18 07:00:00 [facility] Systolic (mm Hg) 2020-09-18 07:00:00 [facility] [place] Diastolic (mm Hg) 2020-09-18 07:00:00 [facility] Systolic (mm Hg) 2020-09-18 06:00:00 [facility] [place] Diastolic (mm Hg) 2020-09-18 06:00:00 [facility] [place] Respitory Rate 2020-09-18 06:00:00 [facility] Temperature Oral (F) 2020-09-16 08:00:00 100.0 F [facility] Temperature Oral (F) 2020-09-16 06:12:00 99.2 F [facility] Height 2020-09-16 04:50:00 162.56 cm [facility] Weight 2020-09-16 04:50:00 [facility] Temperature Oral (F) 2020-09-16 04:19:00 99.5 F [facility] Height 2020-09-15 20:55:00 162.56 cm [facility] BMI Calculated 2020-09-15 20:55:00 [facility] [place] Weight 2020-09-15 20:55:00 [facility] Heart Rate 2020-09-15 20:55:00 [facility] Temperature Oral (F) 2020-08-28 20:15:00 98.4 F [facility] Heart Rate 2020-08-28 20:15:00 [facility] Respitory Rate 2020-08-28 20:15:00 [facility] Systolic (mm Hg) 2020-08-28 20:15:00 [facility] Diastolic (mm Hg) 2020-08-28 20:15:00 [facility] [place] Temperature Oral (F) 2020-08-28 17:00:00 98.6 F [facility] Heart Rate 2020-08-28 17:00:00 [facility] [place] Respitory Rate 2020-08-28 17:00:00 [facility] Systolic (mm Hg) 2020-08-28 17:00:00 [facility] [place] Diastolic (mm Hg) 2020-08-28 17:00:00 [facility] Temperature Oral (F) 2020-08-28 13:30:00 97.1 F [facility] Heart Rate 2020-08-28 13:30:00 [facility] Respitory Rate 2020-08-28 13:30:00 [facility] Systolic (mm Hg) 2020-08-28 13:30:00 [facility] Diastolic (mm Hg) 2020-08-28 13:30:00 [facility] [place] Temperature Oral (F) 2020-08-28 04:25:00 98.0 F [facility] Heart Rate 2020-08-28 04:25:00 [facility] Respitory Rate 2020-08-28 04:25:00 [facility] Systolic (mm Hg) 2020-08-28 04:25:00 [facility] Diastolic (mm Hg) 2020-08-28 04:25:00 [facility] [place] Systolic (mm Hg) 2020-08-28 01:01:00 [facility] [place] Diastolic (mm Hg) 2020-08-28 01:01:00 [facility] [place] Heart Rate 2020-08-28 01:01:00 [facility] [place] Temperature Oral (F) 2020-08-28 01:01:00 97.7 F [facility] Temperature Oral (F) 2020-08-27 20:48:00 97.5 F [facility] Heart Rate 2020-08-27 20:48:00 [facility] Respitory Rate 2020-08-27 20:48:00 [facility] Systolic (mm Hg) 2020-08-27 20:48:00 [facility] [place] Diastolic (mm Hg) 2020-08-27 20:48:00 [facility] [place] Respitory Rate 2020-08-27 16:12:00 [facility] [place] Height 2020-08-26 03:41:00 162.56 cm [facility] Weight 2020-08-26 03:41:00 [facility] BMI Calculated 2020-08-26 03:41:00 [facility] Height 2020-08-25 21:18:00 162.56 cm [facility] BMI Calculated 2020-08-25 21:18:00 [facility] Weight 2020-08-25 21:18:00 [facility] Temperature Oral (F) 2020-08-23 19:07:00 98.9 F [facility] Heart Rate 2020-08-23 19:07:00 [facility] Respitory Rate 2020-08-23 19:07:00 [facility] Systolic (mm Hg) 2020-08-23 19:07:00 [facility] Diastolic (mm Hg) 2020-08-23 19:07:00 [facility] Temperature Oral (F) 2020-08-23 12:50:00 99.2 F [facility] Heart Rate 2020-08-23 12:50:00 [facility] Respitory Rate 2020-08-23 12:50:00 [facility] Systolic (mm Hg) 2020-08-23 12:50:00 [facility] [place] Diastolic (mm Hg) 2020-08-23 12:50:00 [facility] [place] Temperature Oral (F) 2020-08-23 09:46:00 99.1 F [facility] Heart Rate 2020-08-23 09:46:00 [facility] Respitory Rate 2020-08-23 09:46:00 [facility] [place] Systolic (mm Hg) 2020-08-23 09:46:00 [facility] Diastolic (mm Hg) 2020-08-23 09:46:00 [facility] Temperature Oral (F) 2020-08-21 05:57:00 98.9 F [facility] Heart Rate 2020-08-21 05:57:00 [facility] Respitory Rate 2020-08-21 05:57:00 [facility] [place] Systolic (mm Hg) 2020-08-21 05:57:00 [facility] Diastolic (mm Hg) 2020-08-21 05:57:00 [facility] [place] Temperature Oral (F) 2020-08-21 01:30:00 99.1 F [facility] Heart Rate 2020-08-21 01:30:00 [facility] Respitory Rate 2020-08-21 01:30:00 [facility] [place] Systolic (mm Hg) 2020-08-21 01:30:00 [facility] [place] Diastolic (mm Hg) 2020-08-21 01:30:00 [facility] [place] Temperature Oral (F) 2020-08-20 22:05:00 100.8 F [facility] Heart Rate 2020-08-20 22:05:00 [facility] Respitory Rate 2020-08-20 22:05:00 [facility] [place] Systolic (mm Hg) 2020-08-20 22:05:00 [facility] Diastolic (mm Hg) 2020-08-20 22:05:00 [facility] Height 2020-08-16 11:16:00 162.56 cm [facility] Weight 2020-08-16 11:16:00 [facility] BMI Calculated 2020-08-16 11:16:00 [facility] Height 2020-08-15 19:45:00 165.1 cm [facility] BMI Calculated 2020-08-15 19:45:00 [facility] Weight 2020-08-15 19:45:00 [facility] Systolic blood 2020-01-06 03:06:00 114 mm[Hg] [facility] Diastolic blood 2020-01-06 03:06:00 57 mm[Hg] [facility] Heart rate 2020-01-06 03:06:00 69 /min [facility] Body temperature 2020-01-06 03:06:[address] [facility] Respiratory rate 2020-01-06 03:06:00 17 /min [facility] Oxygen saturation in 2020-01-06 03:06:00 97 /min [facility] Arterial blood by [facility] Pulse oximetry Systolic (mm Hg) 2018-12-30 15:30:00 [facility] Diastolic (mm Hg) 2018-12-30 15:30:00 [facility] Heart Rate 2018-12-30 15:30:00 [facility] Respitory Rate 2018-12-30 15:30:00 [facility] Temperature Oral (F) 2018-12-30 15:30:00 98.6 F [facility] Height 2018-12-30 15:30:00 162.56 cm [facility] Weight 2018-12-30 15:30:00 [facility] BMI Calculated 2018-12-30 15:30:00 [facility] [place] BMI Calculated 2018-09-08 14:29:00 [facility] [place] Weight 2018-09-08 14:29:00 [facility] Height 2018-09-08 14:29:00 162.56 cm [facility] Temperature Oral (F) 2018-09-08 14:29:00 97.8 F [facility] Heart Rate 2018-09-08 14:29:00 [facility] Systolic (mm Hg) 2018-09-08 14:29:00 [facility] Diastolic (mm Hg) 2018-09-08 14:29:00 [facility] [place] Systolic (mm Hg) 2018-08-29 13:16:00 [facility] [place] Diastolic (mm Hg) 2018-08-29 13:16:00 [facility] [place] Respitory Rate 2018-08-29 13:16:00 [facility] [place] Temperature Oral (F) 2018-08-29 13:16:00 97.9 F [facility] Heart Rate 2018-08-29 13:16:00 [facility] Respitory Rate 2018-08-29 09:56:00 [facility] [place] Systolic (mm Hg) 2018-08-29 09:56:00 [facility]annie [facility] [place] Diastolic (mm Hg) 2018-08-29 09:56:00 [facility] [place] Temperature Oral (F) 2018-08-29 09:56:00 98.1 F [facility] [place] Heart Rate 2018-08-29 09:56:00 [facility] [place] Respitory Rate 2018-08-29 05:04:00 [facility] [place] Systolic (mm Hg) 2018-08-29 05:04:00 Dannie [facility] [place] Diastolic (mm Hg) 2018-08-29 05:04:00 [facility] Heart Rate 2018-08-29 05:04:00 [facility] [place] Temperature Oral (F) 2018-08-29 05:04:00 98.2 F [facility] Weight 2018-08-25 15:19:00 [facility] [place] BMI Calculated 2018-08-25 15:19:00 [facility] [place] Height 2018-08-25 15:19:00 162.56 cm [facility] Heart Rate 2018-08-25 15:19:00 [facility] Temperature Oral (F) 2018-08-25 15:19:00 98.0 F [facility] Systolic (mm Hg) 2018-08-25 15:19:00 [facility]annie [facility] [place] Diastolic (mm Hg) 2018-08-25 15:19:00 [facility] [place] BMI Calculated 2018-08-24 13:35:00 [facility] [place] Height 2018-08-24 13:35:00 162.56 cm [facility] Weight 2018-08-24 13:35:00 [facility] Weight 2018-07-21 21:30:00 [facility] Height 2018-07-21 21:30:00 162.56 cm [facility] BMI Calculated 2018-07-21 21:30:00 [facility] Systolic (mm Hg) 2018-07-21 21:30:00 [facility]annie [facility] [place] Diastolic (mm Hg) 2018-07-21 21:30:00 [facility] [place] Heart Rate 2018-07-21 21:30:00 [facility] Temperature Oral (F) 2018-07-21 21:30:00 98.0 F [facility] Procedures Procedure Date / Time Performing Clinician Source Performed REPORT OF PROCEDURE - 2020-01-26 15:23:18 Provider, Default [facility] ENDOSCOPY SCAN [facility] RHYTHM STRIP - SCAN 2020-01-07 11:03:25 Provider, Default [facility] ECG 12-LEAD 2020-01-06 20:37:46 Unknown, [facility] ECG 12-LEAD 2020-01-06 20:37:30 Unknown, H[facility]7 [facility] ANTITHROMBIN III 2020-01-06 12:04:[facility] 2020-01-06 12:04[facility] BETA-2 GLYCOPROTEIN 2020-01-06 12:04[facility] LUPUS ANTICOAGULANT SCREEN 2020-01-06 12:04:00 Jasmeet Moore [facility] WITH REFLEX TO CONFIRMATORY [facility] [id number] I IGG 2020-01-06 12:04:00 Jasmeet Moore [facility] ROFO-5-[id number] I IGM 2020-01-06 12:04:00 Jasmeet Moore [facility] IWPH-[id number] I IGA 2020-01-06 12:04:00 Jasmeet Moore [facility] 2D ECHO W/ DOPPLER 2020-01-06 09:29:19 Alexandra Stevens [facility] (CW/PW/COLOR) [facility] HEMOGLOBIN A1C 2020-01-05 15:18:00 Freddie [facility] LIPID PANEL 2020-01-05 15:18:00 Freddie [facility] TSH/FREE T4 IF INDICATED 2020-01-05 15:18:00 Oscar [facility] VITAMIN B12 AND FOLATE 2020-01-05 15:18:00 Freddie [facility] HEPATIC FUNCTION PANEL 2020-01-05 15:18:00 Freddie [facility] CTA CAROTID 2020-01-05 13:50:00 [facility] BRA[facility] 2020-01-05 13:50:00 Elier Benjamin [facility] MR BRAIN WITH & WITHOUT IV 2020-01-04 18:27:00 Alexandra Stevens [facility] VALPROIC ACID LEVEL, TOTAL 2020-01-04 16:35:00 Jasmeet Moore [facility] EEG AWAKE AND DROWSY 2020-01-04 15:47:[address] [facility] BASIC METABOLIC PANEL (7) 2020-01-04 06:04:00 Vini Ledezma [facility] CBC W/PLT COUNT & AUTO 2020-01-04 06:04:00 Vini Ledezma [facility] BLOOD CULTURE 2020-01-03 22:47:00 [facility] BLOOD CULTURE 2020-01-03 22:24:00 [facility] URINALYSIS W/ REFLEX URINE 2020-01-03 22:24:00 [facility] ECG 12-LEAD 2020-01-03 20:43:36 Unknown, Hl7 Doctor [facility] SARS-COV2/RT-PCR (SLHS & REF 2020-01-03 20:02:00 Radha Steinberg [facility] CBC W/PLT COUNT & AUTO 2020-01-03 20:02:00 Maryan [facility] BASIC METABOLIC PANEL (7) 2020-01-03 20:02:00 Maureen Steinberg [facility] PROTHROMBIN TIME/INR 2020-01-03 20:02:00 [facility] LACTIC ACID, VENOUS 2020-01-03 20:02:00 [facility] XR CHEST 1 VIEW PORTABLE / 2020-01-03 19:54:00 Maryan [facility] Removal - [facility] Duy procedure<sup>6</sup> D&C - Dilatation and [facility] rmann curettage procedure<sup>2</sup> [facility] ermann Colonoscopy [facility] operation<sup>1</sup> [facility]<sup>3</sup> [facility] ermann Operation<sup>2</sup> [facility] Dilation and curettage [facility] operation<sup>4</sup> [facility] procedure<sup>5</sup> [facility] Plan of Care Planned Activity Planned Date Details Comments Source Future Scheduled 2023-01-04 Lipid panel (procedure) [facility] 00:00:00 [code = 47480156] Medical Ce nter Future Scheduled 2023-01-04 Lipid panel (procedure) [facility] 00:00:00 [code = 60154172] Medical Ce nter Future Scheduled 2023-01-04 Lipid panel (procedure) [facility] 00:00:00 [code = 60055360] Medical Ce nter Future Scheduled 2023-01-04 Lipid panel (procedure) [facility] 00:00:00 [code = 03540110] Medical Ce nter Future Scheduled 2023-01-04 Lipid panel (procedure) [facility] 00:00:00 [code = 09301210] Medical Ce nter Future Scheduled 2023-01-04 Lipid panel (procedure) [facility] 00:00:00 [code = 40311198] Medical Ce nter Future Scheduled 2023-01-04 Lipid panel (procedure) [facility] 00:00:00 [code = 40277334] Medical Ce nter Future Scheduled 2023-01-04 Lipid panel (procedure) [facility] 00:00:00 [code = 45918894] Medical Ce nter Future Scheduled 2023-01-04 Lipid panel (procedure) [facility] 00:00:00 [code = 76603500] Medical Ce nter Future Scheduled 2023-01-04 Lipid panel (procedure) [facility] 00:00:00 [code = 22949914] Medical Ce nter Future Scheduled 2021-12-27 INFLUENZA VACCINE (#1) [facility]00 [code = INFLUENZA Medical Ce nter VACCINE (#1)] Future Scheduled 2021-04-[address] [facility] 00:00:00 (12+) [code = Medical Center DEPRESSION SCREENING (12+)] Future Scheduled 2021-01-[address] [facility] 00:00:00 Counseling and Medical Cente r Screening (12+) [code = Tobacco Cessation Counseling and Screening (12+)] Future Scheduled 2020-12-27 INFLUENZA VACCINE (#1) [facility] 00:00:00 [code = INFLUENZA Medical Ce nter VACCINE (#1)] Future Scheduled 2020-12-27 INFLUENZA VACCINE (#1) [facility] 00:00:00 [code = INFLUENZA Medical Ce nter VACCINE (#1)] Future Scheduled 2020-12-27 INFLUENZA VACCINE (#1) [facility] 00:00:00 [code = INFLUENZA Medical Ce nter VACCINE (#1)] Future Scheduled 2020-04-[address] [facility] 00:00:00 (12+) [code = Medical Center DEPRESSION SCREENING (12+)] Future Scheduled 2020-04-[address] [facility] 00:00:00 (12+) [code = Medical Center DEPRESSION SCREENING (12+)] Future Scheduled 2020-04-[address] [facility] 00:00:00 (12+) [code = Medical Center DEPRESSION SCREENING (12+)] Future Scheduled 2019-12-28 INFLUENZA VACCINE (#1) [facility] 00:00:00 [code = INFLUENZA Medical Ce nter VACCINE (#1)] Future Scheduled 2019-12-28 INFLUENZA VACCINE (#1) [facility] 00:00:00 [code = INFLUENZA Medical Ce nter VACCINE (#1)] Future Scheduled 2019-12-28 INFLUENZA VACCINE (#1) [facility] 00:00:00 [code = INFLUENZA Medical Ce nter VACCINE (#1)] Future Scheduled 2019-12-28 INFLUENZA VACCINE (#1) [facility] 00:00:00 [code = INFLUENZA Medical Ce nter VACCINE (#1)] Future Scheduled 2019-12-28 INFLUENZA VACCINE (#1) [facility] 00:00:00 [code = INFLUENZA Medical Ce nter VACCINE (#1)] Future Scheduled 2019-12-28 INFLUENZA VACCINE (#1) [facility] 00:00:00 [code = INFLUENZA Medical Ce nter VACCINE (#1)] Future Scheduled 2015 SHINGLES VACCINES ([address] [facility] 00:00:00 2) [code = SHINGLES Medical Center VACCINES (1 of 2)] Future Scheduled 2015 SHINGLES VACCINES ([address] [facility] 00:00:00 2) [code = SHINGLES Medical Center VACCINES (1 of 2)] Future Scheduled 2015 SHINGLES VACCINES ([address] [facility] 00:00:00 2) [code = SHINGLES Medical Center VACCINES (1 of 2)] Future Scheduled 2015 SHINGLES VACCINES ([address] [facility] 00:00:00 2) [code = SHINGLES Medical Center VACCINES (1 of 2)] Future Scheduled 1996-03-29 [...] no IPPE)] Future Scheduled 1986 Screening for malignant [facility] 00:00:00 neoplasm of cervix Medical C enter (procedure) [code = 896196633] Future Scheduled 1986 Screening for malignant [facility] 00:00:00 neoplasm of cervix Medical C enter (procedure) [code = 109309249] Future Scheduled 1986 Screening for malignant [facility] 00:00:00 neoplasm of cervix Medical C enter (procedure) [code = 583795847] Future Scheduled 1986 Screening for malignant [facility] 00:00:00 neoplasm of cervix Medical C enter (procedure) [code = 306479363] Future Scheduled 1986 Screening for malignant [facility] 00:00:00 neoplasm of cervix Medical C enter (procedure) [code = 722297823] Future Scheduled 1986 Screening for malignant [facility] 00:00:00 neoplasm of cervix Medical C enter (procedure) [code = 980701004] Future Scheduled 1986 Screening for malignant [facility] 00:00:00 neoplasm of cervix Medical C enter (procedure) [code = 963321179] Future Scheduled 1986 Screening for malignant [facility] 00:00:00 neoplasm of cervix Medical C enter (procedure) [code = 526224987] Future Scheduled 1986 Screening for malignant [facility] 00:00:00 neoplasm of cervix Medical C enter (procedure) [code = 277156938] Future Scheduled 1986 Screening for malignant [facility] 00:00:00 neoplasm of cervix Medical C enter (procedure) [code = 302503994] Future Scheduled 1984-01-23 DTAP/TDAP/TD VACCINES CH I [...] Josep ter VACCINE (1)] Future Scheduled 1965 COVID-19 VACCINE (#1[facility] [code = COVID-[address] VACCINE (#1)] Future Scheduled 1965 Screening for malignant [facility] 00:00:00 neoplasm of breast Medical C enter (procedure) [code = 166911013] Future Scheduled 1965 Screening for malignant [facility] 00:00:00 neoplasm of colon Medical Ce nter (procedure) [code = 714432044] Future Scheduled 1965 Screening for malignant [facility] 00:00:00 neoplasm of breast Medical C enter (procedure) [code = 085180511] Future Scheduled 1965 Screening for malignant [facility] 00:00:00 neoplasm of colon Medical Ce nter (procedure) [code = 678683111] Future Scheduled 1965 Screening for malignant [facility] 00:00:00 neoplasm of breast Medical C enter (procedure) [code = 403107487] Future Scheduled 1965 Screening for malignant [facility] 00:00:00 neoplasm of colon Medical Ce nter (procedure) [code = 124108227] Future Scheduled 1965 Screening for malignant [facility] 00:00:00 neoplasm of breast Medical C enter (procedure) [code = 831951387] Future Scheduled 1965 Screening for malignant [facility] 00:00:00 neoplasm of colon Medical Ce nter (procedure) [code = 255466543] Future Scheduled 1965 Screening for malignant [facility] 00:00:00 neoplasm of breast Medical C enter (procedure) [code = 441476842] Future Scheduled 1965 Screening for malignant [facility] 00:00:00 neoplasm of colon Medical Ce nter (procedure) [code = 318683258] Future Scheduled 1965 Screening for malignant [facility] 00:00:00 neoplasm of breast Medical C enter (procedure) [code = 990449233] Future Scheduled 1965 Screening for malignant [facility] 00:00:00 neoplasm of colon Medical Ce nter (procedure) [code = 054494684] Future Scheduled 1965 Screening for malignant [facility] 00:00:00 neoplasm of breast Medical C enter (procedure) [code = 506495034] Future Scheduled 1965 Screening for malignant [facility] 00:00:00 neoplasm of colon Medical Ce nter (procedure) [code = 948619909] Future Scheduled 1965 Screening for malignant [facility] 00:00:00 neoplasm of breast Medical C enter (procedure) [code = 531527942] Future Scheduled 1965 Screening for malignant [facility] 00:00:00 neoplasm of colon Medical Ce nter (procedure) [code = 388995699] Future Scheduled 1965 Screening for malignant [facility] 00:00:00 neoplasm of breast Medical C enter (procedure) [code = 402737567] Future Scheduled 1965 Screening for malignant [facility] 00:00:00 neoplasm of colon Medical Ce nter (procedure) [code = 806623573] Future Scheduled 1965 Screening for malignant [facility] 00:00:00 neoplasm of breast Medical C enter (procedure) [code = 120430385] Future Scheduled 1965 CT Colonography (combo) [facility] 00:00:00 [code = CT Colonography [facility] (combo)] Future Scheduled 1965 Screening for malignant [facility] 00:00:00 neoplasm of colon Medical Ce nter (procedure) [code = 306044278] Future Scheduled 1965 Screening for malignant [facility] 00:00:00 neoplasm of colon Medical Ce nter (procedure) [code = 703204536] Future Scheduled 1965 Screening for malignant [facility] 00:00:00 neoplasm of colon Medical Ce nter (procedure) [code = 663986444] Future Scheduled 1965 Screening for malignant [facility] 00:00:00 neoplasm of colon Medical Ce nter (procedure) [code = 508542791] Future Scheduled 1965 Sigmoidoscopy [code = [facility] Sigmoidoscopy] Medical Cente r Encounters Start End Encounter Admission Attending Care Care Encounter Source Date/Time Date/Time Type Type Clinicians Facility Department ID 2022-04-02 Outpatient [facility] [id number] [place] 09:29:18 [id number] [facility] 2022-02-11 Outpatient [facility] [id number] [place] 09:19:11 [id number] [facility] 2021-06-[address], [facility] [id number] [place] [facility], [facility] [id number] [place] 01:04:47 [facility] 2021-06-[address], [facility] [id number] [place] 01:02:[facility] 2021-03-[address], [facility] [id number] [place] 01:03:31 [facility] 2021-03-[address], [facility] [id number] [place] 01:03:14 [facility] 2021-02-[address], [facility] [id number] [place] 14:25:58 [facility] 2020-09-18 Outpatient DANNENBAUM, [facility] [id number] [place] 01:03:56 [facility] 2020-09-02 Outpatient [facility] [id number] [place] 03:08:43 [facility] 2018-08-27 [id number] 08:45:00 2022-05-15 2022-05-[address], [facility] [id number] [place] 10:45:00 10:45:[facility] 2022-04-03 2022-04-03 Office Freet, [facility] [id number] 1.2.840.114 [id number] [place] 13:45:00 13:45:00 Visit Jason ONTIVEROS 350.1.13.58 [facility] 9.2.7.2.686 [id number] 5 2022-04-01 2022-04-01 Leena Watts [facility] 1.2.840.114 [id number] Univers 00:00:00 00:00:00 [facility] 350.1.13.10 ity of [place] 4.2.7.2.686 Teto as PETER?BLEA [id number] In jeanmarie[address] MEDICAL OFFICE [facility] 2022-03-06 2022-03-[address], [facility] [id number] [place] 15:15:00 15:15:00 [facility] 2022-02-28 2022-02-28 [facility] 1.2.840.114 [id number] Univers 00:00:00 00:00:00 [facility] 350.1.13.10 ity of [place] 4.2.7.2.686 Teto as PETER?BLEA [id number] [address] OFFICE [facility] 2022-02-27 2022-02-27 [facility] 1.2.840.114 [id number] Univers 00:00:00 00:00:00 [facility] 350.1.13.10 ity of [place] 4.2.7.2.686 Teto as PETER?BLEA [id number] [address] 2022-02-26 2022-02-26 Outpatient Kevin MUSTAFAESERGEY [facility] [id number] Univers 00:00:00 00:00:00 STEFANIESERGEY Cifuentes [facility] 2022-02-18 2022-02-18 Outpatient SERGEY ELMORE [facility] [id number] Univers 11:20:00 13:05:18 STEFANIE SERGEY [facility] 2022-02-18 2022-02-18 [facility] 1.2.840.114 [id number] [facility] 11:20:00 13:05:18 Visit [facility] 350.1.13.10 ity of [place] 4.2.7.2.686 Teto as PETER?BLEA [id number] [address] 2022-02-08 2022-02-08 Office AMELIA Magana 6410 1.2.840.114 [id number] [place] 10:15:00 10:56:19 Visit Cyrus FISCHERRaven [place] 350.1.13.58 Health 9.2.7.2.686 [id number] 2022 2022 [facility] 1.2.840.114 [id number] Univers 00:00:00 00:00:00 [facility] 350.1.13.10 ity of [place] 4.2.7.2.686 Teto as PETER?BLEA [id number] [address] OFFICE BUILDING 2021-12-26 2021-12-26 Outpatient SARAH, [facility] [id number] [place] 14:30:00 14:30:00 JASON Lua 2021-12-26 2021-12-26 Office Sarah, [facility] 6410 1.2.840.114 [id number] [place] 13:00:00 13:34:32 Visit Jason [place] 350.1.13.58 Health 9.2.7.2.686 [id number] 2021-12-21 2021-12-21 [place] Stefanie [facility] 1.2.840.114 [id number] [facility] 00:00:00 00:00:00 [facility] 350.1.13.10 ity of [place] 4.2.7.2.686 Teto as PETER?BLEA [id number] [address] OFFICE BUILDING 2021-12-19 2021-12-19 [facility] 1.2.840.114 [id number] [facility] 00:00:00 00:00:00 [facility] 350.1.13.10 ity of [place] 4.2.7.2.686 Teto as PETER?BLEA [id number] [address] OFFICE BUILDING 2021-12-12 2021-12-12 Office Sarah, [facility] 6410 1.2.840.114 [id number] [place] 11:45:00 15:00:28 Visit Jason [place] 350.1.13.58 Health 9.2.7.2.686 [id number] 2021-12-05 2021-12-05 Office Sarah, [facility] 6410 1.2.840.114 [id number] [place] 13:45:00 15:34:35 Visit Jason [place] 350.1.13.58 Health 9.2.7.2.686 [id number] 2021-11-30 2021-12-01 [facility] [id number] [facility] 18:48:00 22:21:[address] 2021-11-30 2021-12-01 [facility] [id number] Memoria 18:48:00 22:21:00 Outpatient r Duy 01 [facility] 2021-11-30 2021-12-[address], [facility] [id number] [facility] 13:48:00 17:21:00 JASON 2021-11-30 2021-12-01 Outpatient Freet, [facility] [id number] 13:48:00 17:21:00 Jason Conde 2021-11-30 2021-11-[address], [facility] [id number] [place] 07:45:00 07:45:00 [facility] 2021-11-21 2021-11-21 Office Freet, [facility] 6410 1.2.840.114 [id number] [place] 15:00:00 16:23:33 Visit Jasonlucero FISCHERN 350.1.13.58 [facility] 9.2.7.2.686 [id number] 2021-11-08 2021-11-14 [facility] [id number] Memoria 12:05:00 15:51:00 r [place] 00 [facility] 2021-11-08 2021-11-14 Inpatient nullFlavo [facility] [id number] Memoria 12:05:00 15:51:00 r [place] 00 [facility] 2021-11-08 2021-11-[address], [facility] [id number] [facility] 07:05:00 10:51:00 JASON 2021-11-08 2021-11-14 Outpatient Freet, [facility] [id number] 07:05:00 10:51:00 Jason Conde 2021-11-08 2021-11-[address], [facility] [id number] [place] 08:45:00 08:45:00 [facility] 2021-10-30 2021-10-30 Outpatient SERGEY [facility]MORE [facility] [id number] Univers 09:40:00 09:40:00 SERGEY WATTS [facility] 2021-10-26 2021-10-26 Outpatient SERGEY [facility]MORE [facility] [id number] Univers 16:20:00 16:37:58 SERGEY WATTS brittani [facility] 2021-10-26 2021-10-26 Office Stefanie [facility] 1.2.840.114 [id number] Univers 16:20:00 16:37:58 Visit Sergey Mendoza [facility] 350.1.13.10 ity of [place] 4.2.7.2.686 Teto as PETER?BLEA [id number] [address] OFFICE [facility] 2021-10-26 2021-10-26 Outpatient R SERGEY WATTS [facility] [id number] [facility] 16:20:00 16:20:00 SERGEY WATTS brittani [facility] 2021-10-26 2021-10-26 Orders Doctor LITTLE 1.2.840.114 [id number] Univers 00:00:00 00:00:00 Only Unassigned, REAL 350.1.13.10 [facility] 4.2.7.2.686 Teto as [id number] [address] 2021-10-08 2021-10-08 [facility] 1.2.840.114 [id number] [facility] 00:00:00 00:00:00 Sergey [facility] 350.1.13.10 ity of [place] 4.2.7.2.686 Teto as PETER?BLEA [id number] [address] 2021-09-26 2021-09-26 Office AMELIA Smith 6410 1.2.840.114 [id number] [place] 16:00:00 16:31:19 Visit Jason [place] 350.1.13.58 Health 9.2.7.2.686 [id number] 2021-09-26 2021-09-26 Outpatient SARAH [facility] [id number] [place] 12:45:00 12:45:[facility] 2021-09-06 2021-09-06 [facility] 1.2.840.114 [id number] [facility] 00:00:00 00:00:00 [facility] 350.1.13.10 [facility] 4.2.7.2.686 Teto as PETER?BLEA [id number] [address] OFFICE BUILDING 2021-09-05 2021-09-05 Office Freetong, [facility] 6410 1.2.840.114 [id number] [place] 13:00:00 13:24:22 Visit Jason ONTIVEROS 350.1.13.58 Health 9.2.7.2.686 [id number] 2021-08-31 2021-08-31 [facility] 1.2.840.114 [id number] Univers 00:00:00 00:00:00 [facility] 350.1.13.10 ity of [place] 4.2.7.2.686 Teto as PETER?BLEA [id number] [address] OFFICE [facility] 2021-08-29 2021-08-29 Office Free, [facility] 6410 1.2.840.114 [id number] [place] 13:00:00 14:11:14 Visit Jason ONTIVEROS 350.1.13.58 Health 9.2.7.2.686 [id number] 2021-08-23 2021-08-24 Day [facility] [id number] Memoria 14:31:00 04:59:[address] 2021-08-23 2021-08-24 Day [facility] [id number] Memoria 14:31:00 04:59:[address] 2021-08-23 2021-08-23 Outpatient Freet, [facility] [id number] 09:31:00 23:59:00 Jason Toby Elton 2021-08-23 2021-08-23 Outpatient Freet, [facility] [id number] 09:31:00 23:59:00 Jason Toby [place] 2021-08-23 2021-08-23 [address], [facility] [id number] [facility] 09:31:00 23:59:00 JASON 2021-08-23 2021-08-[address], [facility] [id number] [place] 14:30:00 14:30:00 JASON Health 2021-08-22 2021-08-22 Office Sarah [facility] 6410 1.2.840.114 [id number] [place] 11:00:00 11:47:[address] 350.1.13.58 Health 9.2.7.2.686 [id number] 2021-08-16 2021-08-16 Telephone Tarsha Do [facility] 6410 1.2.840. 114 [id number] [place] 00:00:00 00:00:[address] 350.1.13.58 Health 9.2.7.2.686 [id number] 5 2021-08-09 2021-08-09 Telephone Tarsha Do [facility] 6410 1.2.840. 114 [id number] [place] 00:00:00 00:00:[address] 350.1.13.58 Health 9.2.7.2.686 [id number] 2021-08-08 2021-08-08 Office AMELIA Smith 6410 1.2.840.114 [id number] [place] 13:30:00 15:11:[address] 350.1.13.58 Health 9.2.7.2.686 [id number] 2021-08-03 2021-08-04 [facility] [id number] Memoria 23:22:00 21:40:[address] 2021-08-03 2021-08-04 [facility] [id number] Memoria 23:22:00 21:40:[address] 2021-08-03 2021-08-04 Outpatient Steve Nava [facility] [id number] 18:22:00 16:40:00 Luis Alberto 2021-08-03 2021-08-04 Outpatient Steve Nava [facility] [id number] 18:22:00 16:40:00 Luis Alberto 2021-08-03 2021-08-04 Outpatient U STEVE NAVA [facility] 750 [id number] [facility] 18:22:00 16:40:00 2021-07-26 2021-07-26 Leena Watts [facility] 1.2.840.114 [id number] Univers 00:00:00 00:00:00 Sergey REYEZ 350.1.13.10 [place].2.[place] [id number] [place] 764872 [facility] 2021-07-25 2021-07-25 Office AMELIA Smith 6410 1.2.840.114 [id number] [place] 10:00:00 10:40:50 Visit Jason FARRARLAMIN [place] 350.1.13.58 Health 9.2.7.2.686 [id number] 2021-07-16 2021-07-16 Orders Doctor SIDNEY 1.2.840.[id number] [place] [address] 00:00:00 00:00:00 Only Unassigned, REAL 350.1.13.10 ity of [facility] 4.2.7.2.686 Teto as [id number] [address] 2021-07-13 2021-07-13 Telephone Lashell Dangelo [facility] 6410 1.2.840. 114 [id number] [place] 00:00:00 00:00:[address] 350.1.13.58 Health 9.2.7.2.686 [id number] 5 2021-06-27 2021-06-27 Office AMELIA Smith 6410 1.2.840.114 [id number] [place] 11:45:00 12:53:[address] 350.1.13.58 Health 9.2.7.2.686 [id number] 2021-06-04 2021-06-04 Orders Doctor SIDNEY 1.2.840.114 [id number] Univers 00:00:00 00:00:00 Only Unassigned, REAL 350.1.13.10 ity of [facility] 4.2.7.2.686 Teto as [id number] [address] 2021-05-11 2021-05-11 Outpatient [facility] [id number] [place] 13:30:00 13:30:00 Health 2021-05-11 2021-05-11 Telephone Tarsha Do [facility] 6410 1.2.840. 114 [id number] [place] 00:00:00 00:00:[address] 350.1.13.58 Health 9.2.7.2.686 [id number] 2021-05-07 2021-05-07 Transition HUMPHREY [place] 1.2.840.114 [id number] Univers 00:00:00 00:00:00 of Care Carolynn BERNAL 350.1.13.10 it y of [place] 4.2.7.2.686 [place] [phone] [place] [address] [place] 2021-04-29 2021-05-04 Inpatient X [facility] ANAI [id number] Univers 10:25:00 13:16:00 SETH ity of [facility] 2021-04-29 2021-05-04 [facility] [facility] 1.2.840.114 [id number] Univers 10:25:00 13:16:00 Encounter Ezluis a, Ali HEALTH 350.1.13.10 ity of [place], Seth CLEAR 4.2.7.2.686 [facility] [phone] [place] [address] [address] ([facility]) 2021-04-25 2021-04-25 Office Sarah AMELIA 6410 1.2.840.114 [id number] [place] 10:30:00 12:57:42 Visit Jason ONTIVEROS 350.1.13.58 Health 9.2.7.2.686 [id number] 5 2021-03-17 2021-03-17 Emergency nullFlavo [facility] [id number] Memoria 09:34:51 15:39:00 r Duy [address] [place] [address] 2021-03-17 2021-03-17 Emergency nullFlavo [facility] [id number] Memoria 09:34:51 15:39:00 r Duy [address] [place] [address] 2021-03-17 2021-03-[address] [id number] 03:34:51 09:39:00 [facility] 2021-03-17 2021-03-17 Outpatient Lucien, MHPL PL [id number] 03:34:51 09:39:00 Sab 2021-03-17 2021-03-17 Emergency E LUCIEN, MHBL MED 7507 BL 03:34:00 09:39:00 [facility] 2021-02-28 2021-03-15 Inpatient nullFlavo [facility] [id number] Memoria 22:01:00 20:20:[address] 2021-02-28 2021-03-15 Inpatient nullFlavo [facility] [id number] Memoria 22:01:00 20:20:[address] 2021-02-28 2021-03-15 Outpatient Marina, [facility] [id number] 17:01:00 14:20:00 Isela Elio [facility] 2021-02-28 2021-03-15 Inpatient MARINA, [facility] MED 1305 [facility] 17:01:00 14:20:00 [facility] 2021-02-28 2021-02-28 Emergency nullFlavo [facility] [id number] Memoria 20:18:36 20:18:[address] 2021-02-28 2021-02-28 Emergency nullFlavo [facility] [id number] Memoria 20:18:36 20:18:[address] 2021-02-28 2021-02-28 Outpatient Marina, [facility] [id number] 17:01:00 17:01:00 Isela 05 [facility] 2021-02-28 2021-02-28 Outpatient Tiffanie, [facility] [id number] 575 15:18:36 15:18:00 Brayden Alivia Olivaresah 2021-02-26 2021-02-26 Telephone Tarsha Do 6410 1.2.840. 114 [id number] [place] 00:00:00 00:00:00 Tarsha Do 350.1.13.58 Health 9.2.7.2.686 [id number] 5 2021-02-26 2021-02-26 Telephone Tarsha Do UTP 6410 1.2.840. 114 [id number] [place] 00:00:00 00:00:[address] 350.1.13.58 Health 9.2.7.2.686 [id number] 5 2021-02-20 2021-02-20 Outpatient SARAH, [facility] [id number] [place] 14:00:00 14:00:00 JASON Health 2021-02-19 2021-02-19 Telephone Tarsha Do UTP 6410 1.2.840. 114 [id number] [place] 00:00:00 00:00:[address] 350.1.13.58 Health 9.2.7.2.686 [id number] 5 2021-02-19 2021-02-19 Telephone Tarsha Do UTP 6410 1.2.840. 114 [id number] [place] 00:00:00 00:00:[address] 350.1.13.58 Health 9.2.7.2.686 [id number] 5 2021-02-19 2021-02-19 Orders Tarsha Do UTP 6410 1.2.840.11 4 [id number] [place] 00:00:00 00:00:[address] 350.1.13.58 Health 9.2.7.2.686 [id number] 5 2021-02-14 2021-02-14 Office AMELIA Smith 6410 1.2.840.114 [id number] [place] 13:20:56 13:55:[address] 350.1.13.58 Health 9.2.7.2.686 [id number] 5 2021-02-08 2021-02-08 Orders Tarsha Do UTP 6410 1.2.840.11 4 [id number] [place] 00:00:00 00:00:[address] 350.1.13.58 Health 9.2.7.2.686 [id number] 5 2021-01-29 2021-01-29 [facility] 1.2.840 .114 [id number] [place] 00:00:00 00:00:[address] 350.1.13.58 Health 9.2.7.2.686 [id number] 1 2021-01-29 2021-01-29 Telephone Johanny Gallardo UTP 6410 1.2.840 .114 [id number] [place] 00:00:00 00:00:[address] 350.1.13.58 Health 9.2.7.2.686 [id number] 1 2020-12-15 2021-01-24 Inpatient [facility] [id number] [facility] 22:47:00 02:20:[address] 2020-12-15 2021-01-24 Inpatient [facility] [id number] [facility] 22:47:00 02:20:[address] 2020-12-15 2021-01-23 Outpatient Gloria, [facility] [id number] 575 17:47:00 21:20:00 [facility] 05 2020-12-15 2021-01-23 Inpatient U GLORIA, [facility] MED 7505 [facility] 17:47:00 21:20:00 DICK 2021-01-23 2021-01-23 EXT [facility] IP Gloria, EXT MSRDP 1.2.840.114 1 [id number] [place] 00:00:00 00:00:00 [facility] LOCATION 350.1.13.58 H ealth 9.2.7.2.686 [id number] 0 2021-01-23 2021-01-23 EXT [facility] IP Gloria, EXT MSRDP 1.2.840.114 1 [id number] [place] 00:00:00 00:00:00 Dick LOCATION 350.1.13.58 H ealth 9.2.7.2.686 [id number] 0 2021 2021 EXT [facility] IP System, EXT MSRDP 1.2.840.114 1 [id number] [place] 00:00:00 00:00:00 Provider LOCATION 350.1.13.58 Health Not In 9.2.7.2.686 [id number] 0 2021 2021 EXT [facility] IP System, EXT MSRDP 1.2.840.114 1 [id number] [place] 00:00:00 00:00:00 Provider LOCATION 350.1.13.58 Health Not In 9.2.7.2.686 [id number] 0 2021 2021 EXT [facility] IP System, EXT MSRDP 1.2.840.114 1 [id number] [place] 00:00:00 00:00:00 Provider LOCATION 350.1.13.58 Health Not In 9.2.7.2.686 [id number] 0 2021 2021 EXT [facility] IP System, EXT MSRDP 1.2.840.114 1 [id number] [place] 00:00:00 00:00:00 Provider LOCATION 350.1.13.58 Health Not In 9.2.7.2.686 [id number] 0 2021-01-15 2021-01-15 EXT [facility] OP Freet, EXT MSRDP 1.2.840.114 1 [id number] [place] 13:19:44 15:19:44 Jason LOCATION 350.1.13.58 H ealth 9.2.7.2.686 [id number] 1 2021-01-15 2021-01-15 EXT [facility] OP FREET, EXT MSRDP 1.2.840.114 1 [id number] [place] 13:19:44 15:19:44 JASON LOCATION 350.1.13.58 H ealth 9.2.7.2.686 [id number] 1 2021-01-04 2021-01-04 EXT [facility] OP Freet, EXT MSRDP 1.2.840.114 1 [id number] [place] 12:00:21 12:30:21 Jason LOCATION 350.1.13.58 H ealth 9.2.7.2.686 [id number] 1 2021-01-04 2021-01-04 EXT [facility] OP FREET, EXT MSRDP 1.2.840.114 1 [id number] [place] 12:00:21 12:30:21 JASON LOCATION 350.1.13.58 H ealth 9.2.7.2.686 [id number] 1 2021-01-04 2021-01-04 EXT [facility] IP Krupa, EXT MSRDP 1.2.840.114 1 [id number] [place] 00:00:00 00:00:00 Velasquez LOCATION 350.1.13.58 H ealth 9.2.7.2.686 [id number] 0 2021-01-04 2021-01-04 EXT [facility] IP Krupa, EXT MSRDP 1.2.840.114 1 [id number] [place] 00:00:00 00:00:00 Velasquez LOCATION 350.1.13.58 H ealth 9.2.7.2.686 [id number] 0 2021-01-03 2021-01-03 EXT [facility] OP Freet, EXT MSRDP 1.2.840.114 1 [id number] [place] 08:03:05 16:33:05 Jason LOCATION 350.1.13.58 H ealth 9.2.7.2.686 [id number] 1 2021-01-03 2021-01-03 EXT [facility] OP FREET, EXT MSRDP 1.2.840.114 1 [id number] [place] 08:03:05 16:33:05 JASON LOCATION 350.1.13.58 H ealth 9.2.7.2.686 [id number] 1 2020-12-27 2020-12-27 Outpatient [facility] [id number] [place] 14:00:00 14:00:00 Health 2020-12-25 2020-12-25 EXT [facility] IP Freet, EXT MSRDP 1.2.840.114 1 [id number] [place] 00:00:00 00:00:00 Jason LOCATION 350.1.13.58 H ealth 9.2.7.2.686 [id number] 0 2020-12-25 2020-12-25 EXT [facility] IP Freet, EXT MSRDP 1.2.840.114 1 [id number] [place] 00:00:00 00:00:00 Jason LOCATION 350.1.13.58 H ealth 9.2.7.2.686 [id number] 0 2020-12-22 2020-12-22 EXT [facility] OP Freet, EXT MSRDP 1.2.840.114 1 [id number] [place] 08:13:13 16:43:13 Jason LOCATION 350.1.13.58 H ealth 9.2.7.2.686 [id number] 1 2020-12-22 2020-12-22 EXT [facility] OP FREET, EXT MSRDP 1.2.840.114 1 [id number] [place] 08:13:13 16:43:13 JASON LOCATION 350.1.13.58 H ealth 9.2.7.2.686 [id number] 1 2020-12-19 2020-12-19 EXT [facility] OP Freet, EXT MSRDP 1.2.840.114 1 [id number] [place] 07:45:58 10:45:58 Jason LOCATION 350.1.13.58 H ealth 9.2.7.2.686 [id number] 1 2020-12-19 2020-12-19 EXT M[facility] OP FREET, EXT MSRDP 1.2.840.114 1 [id number] [place] 07:45:58 10:45:58 JASON LOCATION 350.1.13.58 H ealth 9.2.7.2.686 [id number] 1 2020-12-15 2020-12-15 Outpatient Capellan, [facility] [id number] 575 17:47:00 17:47:00 Sky Greenwood T 2020-12-15 2020-12-15 Outpatient Gloria, [facility] [id number] 575 17:47:00 17:47:00 Dick 2020-12-15 2020-12-15 Outpatient Freet, [facility] [id number] 575 17:47:00 17:47:00 Jason Elio Elton 2020-12-11 2020-12-12 Outpatient nullFlavo [facility] [id number] Memoria 18:40:00 04:59:59 r Care 04 l Lowndes Duy 2020-12-11 2020-12-12 Outpatient nullFlavo Urgent [id number] Memoria 18:40:00 04:59:59 r Care 04 l [facility] 2020-12-11 2020-12-11 Outpatient VISIT, [facility] MG [id number] 13:40:00 23:59:59 [facility] 2020-12-11 2020-12-11 Outpatient MHIE IE [id number] Memoria 13:40:00 13:40:00 04 [facility] 2020-12-06 2020-12-06 Office AMELIA Capellan 6410 1.2.840.114 [id number] [place] 13:32:21 15:57:[address] 350.1.13.58 Health 9.2.7.2.686 [id number] 5 2020-12-06 2020-12-06 Orders Hi Tarsha [facility] 6410 1.2.840.11 4 [id number] [place] 00:00:00 00:00:00 Only Tarsha Do [place] 350.1.13.58 Health 9.2.7.2.686 [id number] 2020-10-23 2020-10-23 [facility] 1.2.840.114 [id number] 262 00:00:00 00:00:00 Sergey Reyez 350.1.13.10 [place] 4.2.7.2.686 Professio [phone] [address] 2020-10-23 2020-10-23 [facility] 1.2.840.114 [id number] 262 [facility] 00:00:00 00:00:00 Sergey Reyez 350.1.13.10 ity [place] [phone] In dical [address] 2020-09-15 2020-09-22 Inpatient [facility] [id number] Memoria 20:53:50 22:50:00 r Duy 04 [facility] 2020-09-15 2020-09-22 Inpatient [facility] [id number] Memoria 20:53:50 22:50:00 [facility] 04 l [facility] 2020-09-15 2020-09-22 Inpatient E DANNY [facility] MED 7504 [facility] 23:47:00 17:50:00 GERALDO 2020-09-15 2020-09-22 Outpatient Danny [facility] [id number] 575 15:53:50 17:50:00 Geraldo 04 2020-09-15 2020-09-15 Outpatient Abbe [facility] [id number] 575 15:53:50 15:53:50 Rebeca 04 David 2020-09-15 2020-09-15 EXT [facility] OP Killian, EXT MSRDP 1.2.840.114 1 [id number] [place] 00:00:00 00:00:00 Cirilo I LOCATION 350.1.13.58 H ealth 9.2.7.2.686 [id number] 0 2020-09-15 2020-09-15 EXT MHH OP Killian, EXT MSRDP 1.2.840.114 1 [id number] [place] 00:00:00 00:00:00 Cirilo I LOCATION 350.1.13.58 H ealth 9.2.7.2.686 [id number] 0 2020-09-13 2020-09-13 Outpatient LE, [facility] 7503 [facility] 10:30:00 23:59:00 CIRILO 2020-09-04 2020-09-04 Telephone [facility] 1.2.840.114 [id number] 00:00:00 00:00:00 Sergey Reyez 350.1.13.10 [place] 4.2.7.2.686 Professio [phone] [address] 2020-09-04 2020-09-04 [facility]phone [facility] 1.2.840.114 [id number] [facility] 00:00:00 00:00:00 Sergey Reyez 350.1.13.10 ity [place] [phone] In dic[address] 2020-08-25 2020-08-28 Inpatient nullFlavo [facility] [id number] Memoria 21:14:08 23:42:00 r [place] [facility] 2020-08-25 2020-08-28 Inpatient nullFlavo [facility] [id number] Memoria 21:14:08 23:42:00 [facility] 2020-08-25 2020-08-28 Inpatient E LISETH, [facility] 7502 [facility] 19:56:00 18:42:00 KARON 2020-08-25 2020-08-28 Outpatient Liseth, [facility] [id number] 16:14:08 18:42:00 Karon Delgado 2020-08-25 2020-08-25 Outpatient Liseth, [facility] [id number] 16:14:08 16:14:08 Karon Delgado 2020-08-15 2020-08-24 Inpatient nullFlavo [facility] [id number] Memoria 19:36:56 00:00:00 r [place] [facility] 2020-08-15 2020-08-24 Inpatient nullFlavo [facility] [id number] Memoria 19:36:56 00:00:00 r [place] [facility] 2020-08-16 2020-08-23 Inpatient E LISETH, [facility] 7501 [facility] 04:12:00 19:00:00 KARON 2020-08-15 2020-08-23 Outpatient Liseth, [facility] [id number] 14:36:56 19:00:00 Karon Delgado 2020-08-15 2020-08-15 Outpatient Liseth, [facility] [id number] 14:36:56 14:36:56 Karon Delgaod 2020-08-15 2020-08-15 Leena Watts [facility] 1.2.840.114 [id number] 00:00:00 00:00:00 Sergey Reyez 350.1.13.10 [place] 4.2.7.2.686 Professio [phone] [address] 2020-08-15 2020-08-15 Refill Stefanie [facility] 1.2.840.114 [id number] Univers 00:00:00 00:00:00 Sergey Mendoza [place] 350.1.13.10 ity [place].2.[place] [phone] [address] 2020-07-21 2020-07-21 Refill Ross Coronado [facility] 1.2.840.114 [id number] 00:00:00 00:00:00 S [place] 350.1.13.10 [place] 4.2.7.2.686 Professio [phone] [address] 2020-07-21 2020-07-21 Refill Ross Coronado [facility] 1.2.840.114 [id number] Univers 00:00:00 00:00:00 S [place] 350.1.13.10 i ty of [place]2.7.2.[place] [phone] [address] 2020-07-18 2020-07-18 Patient Justin, [facility] 1.2.840.114 [id number] 00:00:00 00:00:00 Outreach Tommy PRIMARY 350.1.13.10 [place] CARE 4.2.7.2.686 PAVILLION [phone] [facility] 2020-07-18 2020-07-18 Patient Justin [facility] 1.2.840.114 [id number] Univers 00:00:00 00:00:00 Outreach Tommy PRIMARY 350.1.13.10 i ty of [place] C[place] 4.2.7.2.[place] [phone] [address] 2020-07-03 2020-07-03 Refill Stefanie [facility] 1.2.840.114 [id number] 00:00:00 00:00:00 Sergey Mendoza [place] 350.1.13.10 [place] 4.2.7.2.686 Professio [phone] [address] 2020-07-03 2020-07-03 [facility] 1.2.840.114 [id number] Univers 00:00:00 00:00:00 Sergey Reyez 350.1.13.10 ity of [place].2.[place] [phone] [address] 2020-06-09 2020-06-09 Orders Doctor LITTLE 1.2.840.114 [id number] Univers 00:00:00 00:00:00 Only Unassigned, REAL 350.1.13.10 ity of [facility] 4.2.7.2.686 Teto as [phone] [address] 2020-06-08 2020-06-08 [facility] 1.2.840.114 [id number] 00:00:00 00:00:00 Sergey Reyez 350.1.13.10 [place] 4.2.7.2.686 Professio [phone] [address] 2020-06-08 2020-06-08 [facility] 1.2.840.114 [id number] Univers 00:00:00 00:00:00 Sergey Reyez 350.1.13.10 ity of [place].7.2.[place] [phone] [address] 2020-06-06 2020-06-06 [facility] 1.2.840.114 [id number] Univers 00:00:00 00:00:00 Sergey Reyez 350.1.13.10 ity of [place].2.[place] [phone] [address] 2020-05-15 2020-05-15 Orders Doctor LITTLE 1.2.840.114 [id number] Univers 00:00:00 00:00:00 Only Unassigned, REAL 350.1.13.10 ity of [place] [facility] 4.2.7.2.686 Teto as [phone] [address] 2020-04-04 2020-04-04 Orders Doctor SIDNEY 1.2.840.114 [id number] Univers 00:00:00 00:00:00 Only Unassigned, REAL 350.1.13.10 ity of [place] [facility] 4.2.7.2.686 Teto as [phone] [address] 2020-04-03 2020-04-03 [facility] 1.2.840.114 [id number] Univers 00:00:00 00:00:00 Sergey Reyez 350.1.13.10 ity of [place].2.[place] [phone] [address] 2020-03-14 2020-03-14 [facility] 1.2.840.114 [id number] Univers 00:00:00 00:00:00 Sergey Reyez 350.1.13.10 ity of [place]2.7.2.[place] [phone] [address] 2020-02-14 2020-02-14 [facility] 1.2.840.114 [id number] Univers 00:00:00 00:00:00 Sergey Reyez 350.1.13.10 ity of [place]2.7.2.[place] [phone] In dicar nal [address] [place] [address] 2020-02-14 2020-02-14 Orders Doctor LITTLE 1.2.840.114 [id number] Univers 00:00:00 00:00:00 Only Unassigned, REAL 350.1.13.10 ity of [facility] [place] [facility] 4.2.7.2.686 Teto as [phone] [address] 2020-02-14 2020-02-14 [facility] 1.2.840.114 [id number] 458 Univers 00:00:00 00:00:00 Sergey Reyez 350.1.13.10 ity of [place]7.2.[place] [phone] [address] 2020-01-24 2020-01-24 Office Stefanie [facility] 1.2.840.114 [id number] Univers 15:40:05 16:14:13 Visit Sergey Reyez 350.1.13.10 ity [facility] 4.2.7.2.686 Dewey Arangoio [phone] [address] 2020-01-24 2020-01-24 Outpatient SERGEY ELMORE [facility] [id number] Univers 15:40:00 15:40:00 SERGEY WATTS brittani [facility] 2020-01-12 2020-01-12 Telephone Stefanie [facility] 1.2.840.114 [id number] Univers 00:00:00 00:00:00 Sergey [facility].13.10 [facility] 4.2.7.2.686 Dewey naidu genarocheyenne [phone] [address] 2020-01-07 2020-01-07 Outpatient SERGEY [facility] [id number] Univers 15:20:00 15:20:00 SERGEY WATTS [facility] 2020-01-03 2020-01-06 Hospital ER Maureen Steinberg [facility] [id number] 19:07:01 12:55:00 Encounter Alexandra Stevens [facility] 2020-01-03 2020-01-03 Emergency ER SLE Emergency [id number] [facility] 18:57:00 18:57:00 2020-01-03 2020-01-03 Orders [facility] [id number] 00:00:00 00:00:00 Only [facility] 2020-01-03 2020-01-[address] [facility] [id number] [facility] 00:00[facility] 00:00:00 [facility] 2019-12-27 2019-12-27 Outpatient R MACBETH-EST [facility] [id number] Univers 10:00:00 10:00:00 jasen ERNANDEZ [facility] 2019-12-27 2019-12-27 Orders Doctor LITTLE 1.2.840.114 [id number] Univers 00:00:00 00:00:00 Only Unassigned, REAL 350.1.13.10 ity of [facility] [place] [facility] 4.2.7.2.686 Teto as [phone] [address] 2019-12-27 2019-12-27 [facility] 1.2.840.114 [id number] Univers 00:00:00 00:00:00 Sergey Reyez 350.1.13.10 ity of [place]7.2.[place] [phone] [address] 2019-11-30 2019-11-30 [facility] 1.2.840.114 [id number] Univers 14:14:45 14:49:08 Visit Sergey Reyez 350.1.13.10 ity of [place]2.7.2.[place] [phone] [address] 2019-11-30 2019-11-30 Outpatient R STEFANIE SERGEY [facility] [id number] Univers 14:20:00 14:20:00 SERGEY WATTS ity of [facility] 2019-11-30 2019-11-30 Telephone [facility] 1.2.840.114 [id number] Univers 00:00:00 00:00:00 Sergey Reyez 350.1.13.10 ity of [place]2.7.2.[place] [phone] [address] 2019-11-24 2019-11-24 [facility]phone [facility] 1.2.840.114 [id number] [id number] Univers 00:00:00 00:00:00 Sergey Reyez 350.1.13.10 ity of [place]2.7.2.[place] [phone] [address] 2019-11-16 2019-11-16 Orders Doctor LITTLE 1.2.840.114 [id number] Univers 00:00:00 00:00:00 Only Unassigned, REAL 350.1.13.10 ity of [facility] 4.2.7.2.686 Teto as [phone] [address] 2019-10-05 2019-10-05 [facility] 1.2.840.114 [id number] Univers 00:00:00 00:00:00 Sergey Ryeez 350.1.13.10 ity of [place]2.7.2.[place] [phone] [address] 2019-10-05 2019-10-05 Orders Doctor SIDNEY 1.2.840.114 [id number] Univers 00:00:00 00:00:00 Only Unassigned, REAL 350.1.13.10 ity of [facility] 4.2.7.2.686 Teto as [phone] [address] 2019-10-04 2019-10-04 [facility] 1.2.840.114 [id number] Univers 00:00:00 00:00:00 Sergey Reyez 350.1.13.10 ity of [place]2.7.2.[place] [phone] [address] 2019-08-13 2019-08-13 Orders Doctor SIDNEY 1.2.840.114 [id number] Univers 00:00:00 00:00:00 Only Unassigned, REAL 350.1.13.10 ity of [facility] 4.2.7.2.686 Teto as [phone] [address] 2019-08-11 2019-08-11 Telephone [facility] 1.2.840.114 [id number] Univers 00:00:00 00:00:00 Sergey Reyez 350.1.13.10 ity of [place].7.2.[place] [phone] [address] 2019-07-19 2019-07-19 Refill [facility] 1.2.840.114 [id number] Univers 00:00:00 00:00:00 Denise ernandez 350.1.13.10 i ty of [place]2.7.2.[place] [phone] In dical nal 092 [facility] 2019-07-09 2019-07-09 Telephone Stefanie [facility] 1.2.840.114 [id number] Univers 00:00:00 00:00:00 Sergey [place] 350.1.13.10 [place] [phone] In dical nal 092 [facility] 2019-06-28 2019-06-28 Industrial Hygenist 2, Adc Lab [facility] 1.2.840.114 [id number] Univers 11:07:24 11:22:24 Visit Hilda Delgado 350. 1.13.10 ity [place] [phone] In dical nal 353 [facility] 2019-06-28 2019-06-28 Office [facility] 1.2.840.114 [id number] Univers 10:00:35 11:01:18 Visit Denise ernandez 350.1.13.10 i ty of [place] [phone] In dicar nal [address] [place] [address] 2019-06-28 2019-06-28 Outpatient R [facility] [id number] Univers 10:00:00 10:00:00 AWAIS ity of [facility] 2019-06-21 2019-06-21 Orders Doctor SIDNEY 1.2.840.114 [id number] Univers 00:00:00 00:00:00 Only Unassigned, REAL 350.1.13.10 ity of [facility] 4.2.7.2.686 [place] as [phone] [address] 2019-06-18 2019-06-18 Telephone Stefanie [facility] 1.2.840.114 [id number] Univers 00:00:00 00:00:00 Sergey Mendoza Denise 350.1.13.10 ity [place] [phone] In dic[address] 2019-06-18 2019-06-18 Telephone Stefanie [facility] 1.2.840.114 [id number] Univers 00:00:00 00:00:00 Sergey Reyez 350.1.13.10 ity [place] [phone] [address] 2019-05-18 2019-05-18 [facility] 1.2.840.114 [id number] Univers 00:00:00 00:00:00 Sergey Mendoza Denise 350.1.13.10 ity [place] [phone] [address] 2019-05-17 2019-05-17 Orders Doctor LITTLE 1.2.840.114 [id number] Univers 00:00:00 00:00:00 Only Unassigned, REAL 350.1.13.10 ity of [facility] 4.2.7.2.686 [place] as [phone] [address] 2019-01-08 2019-01-08 Orders Doctor SIDNEY 1.2.840.114 [id number] Univers 00:00:00 00:00:00 Only Unassigned, REAL 350.1.13.10 ity of [facility] 4.2.7.2.686 [place] as [phone] [address] 2019-01-06 2019-01-06 [facility] 1.2.840.114 [id number] Univers 00:00:00 00:00:00 Sergey Reyez 350.1.13.10 [place] [phone] [address] 2018-12-30 2018-12-31 Outpatient nullFlavo [id number] Memoria 20:06:00 04:59:00 r Radiation 41 l Therapy [place] ([facility]) 2018-12-30 2018-12-31 Outpatient nullFlavo [id number] Memoria 20:06:00 04:59:00 r Radiation 41 l Therapy [place] ([facility]) 2018-12-30 2018-12-30 Outpatient Killian, [facility] [id number] 15:06:00 23:59:00 Cirilo Ewing 2018-12-30 2018-12-30 Outpatient [facility] [address] [facility] 15:06:00 15:06:00 2018-12-29 2018-12-30 Outpt Diag nullFlavo [facility] [id number] Memoria 17:52:00 04:59:00 Services r Outpatient 01 l Imaging - [place] n [facility] 2018-12-29 2018-12-30 Outpt Diag nullFlavo [facility] [id number] Memoria 17:52:00 04:59:00 Services r Outpatient 01 l Imaging - [place] [facility] 2018-12-29 2018-12-29 Outpatient Keagan, 35 35 [id number] 12:52:00 23:59:00 Karen Jacob 2018-12-14 2018-12-14 [facility] 1.2.840.114 [id number] Univers 00:00:00 00:00:00 Sergey Reyez [id number] it[phone] [address] 2018-12-14 2018-12-14 Orders Doctor LITTLE [id number] Univers 00:00:00 00:00:00 Only Unassigned, REAL 350.1.13.10 ity of [place] [facility] 4.2.7.2.686 [place] as [phone] [address] 2018-11-27 2018-11-27 [place] [facility] [id number] Univers 00:00:00 00:00:00 Sergey Reyez 350.1.13.10 [place] [phone] In dic[address] 2018-11-27 2018-11-27 Orders Doctor SIDNEY [id number] [id number] Univers 00:00:00 00:00:00 Only Unassigned, REAL 350.1.13.[address] [facility] 4.2.7.2.686 [place] as [phone] [address] 2018-09-08 2018-09-09 Outpatient nullFlavo MNA [id number] Memoria 18:30:00 04:59:59 r Neurosurger 03 l y [facility] 2018-09-08 2018-09-09 Outpatient nullFlavo MNA [id number] Memoria 18:30:00 04:59:59 r Neurosurger 03 l y [facility] 2018-09-08 2018-09-08 Outpatient Yosef Elizondo MHMISCHER MHMISCHER [id number] 13:30:00 23:59:59 2018-09-08 2018-09-08 Outpatient MHIE MHIE [id number] Memoria 13:30:00 13:30:00 03 [facility] 2018-09-01 2018-09-03 Phone nullFlavo MNA [id number] Memoria 14:00:12 04:59:59 Message r Neurosurger 06 l y [facility] 2018-09-01 2018-09-03 Phone nullFlavo MNA [id number] Memoria 14:00:12 04:59:59 Message r Neurosurger 06 l y [facility] 2018-09-01 2018-09-03 Phone nullFlavo MNA [id number] Memoria 13:54:03 04:59:59 Message r Neurosurger 05 l y [facility] 2018-09-01 2018-09-03 Phone nullFlavo MNA [id number] Memoria 13:54:03 04:59:59 Message r Neurosurger 05 l y [facility] 2018-09-01 2018-09-02 Outpatient MHMISCHER MHMISCHER [id number] 09:00:12 23:59:59 2018-09-01 2018-09-02 Outpatient MHMISCHER MHMISCHER [id number] 08:54:03 23:59:59 2018-08-27 2018-08-29 Inpatient nullFlavo [facility] [id number] Memoria 13:45:00 16:00:[address] 2018-08-27 2018-08-29 Inpatient nullFlavo [facility] [id number] Memoria 13:45:00 16:00:00 r Duy 00 [facility] 2018-08-27 2018-08-29 Outpatient Yosef Elizondo [place] [facility] [id number] 08:45:00 11:00:00 00 2018-08-27 2018-08-28 Outpatient nullFlavo MNA [id number] Memoria 16:00:00 04:59:59 r Neurosurger 01 [facility] 2018-08-27 2018-08-28 Outpatient nullFlavo MNA [id number] Memoria 16:00:00 04:59:59 r Neurosurger 01 [facility] 2018-08-27 2018-08-27 Outpatient Yosef Elizondo MISCHER MISCHER [id number] 11:00:00 23:59:59 2018-08-27 2018-08-27 Outpatient MHIE MHIE [id number] Memoria 11:00:00 11:00:00 01 [facility] 2018-08-25 2018-08-26 Outpatient nullFlavo MNA [id number] Memoria 18:30:00 04:59:59 r Neurosurger 02 [facility] 2018-08-25 2018-08-26 Outpatient nullFlavo MNA [id number] Memoria 18:30:00 04:59:59 r Neurosurger 02 [facility] 2018-08-25 2018-08-25 Outpatient Yosef Elizondo MISCHER MISCHER [id number] 13:30:00 23:59:59 02 2018-08-25 2018-08-25 Outpatient MHIE MHIE [id number] Memoria 13:30:00 13:30:00 02 [facility] 2018-08-24 2018-08-25 Outpt Diag nullFlavo [facility] [id number] Memoria 18:38:00 04:59:00 Services r Outpatient 00 l [facility] 2018-08-24 2018-08-25 Outpt Diag nullFlavo [facility] [id number] Memoria 18:38:00 04:59:00 Services r Outpatient 00 l [facility] 2018-08-24 2018-08-24 Outpatient Yosef Elizondo [place] [id number] 13:38:00 23:59:00 2018-08-21 2018-08-23 Phone nullFlavo MNA [id number] Memoria 20:43:00 04:59:59 Message r Neurosurger 04 l y [facility] 2018-08-21 2018-08-23 Phone nullFlavo MNA [id number] Memoria 20:43:00 04:59:59 Message r Neurosurger 04 l y [facility] 2018-08-21 2018-08-22 Outpatient MHMISCHER MHMISCHER [id number] 15:43:00 23:59:59 2018-08-13 2018-08-15 Phone nullFlavo MNA [id number] Memoria 20:46:00 04:59:59 Message r Neurosurger 03 l y [facility] 2018-08-13 2018-08-15 Phone nullFlavo MNA [id number] Memoria 20:46:00 04:59:59 Message r Neurosurger 03 l y [facility] 2018-08-13 2018-08-14 Outpatient MHMISCHER MHMISCHER [id number] 15:46:00 23:59:59 2018-08-11 2018-08-13 Phone nullFlavo MNA [id number] Memoria 15:16:00 04:59:59 Message r Neurosurger 02 l y [facility] 2018-08-11 2018-08-13 Phone nullFlavo MNA [id number] Memoria 15:16:00 04:59:59 Message r Neurosurger 02 l y [facility] 2018-08-11 2018-08-12 Outpatient MHMISCHER MHMISCHER [id number] 10:16:00 23:59:59 2018-07-22 2018-07-24 Phone nullFlavo MNA [id number] Memoria 21:09:00 04:59:59 Message r Neurosurger 01 l y [facility] 2018-07-22 2018-07-24 Phone nullFlavo MNA [id number] Memoria 21:09:00 04:59:59 Message r Neurosurger 01 l y [facility] 2018-07-22 2018-07-23 Outpatient MHMISCHER MHMISCHER [id number] 16:09:00 23:59:59 2018-07-21 2018-07-22 Outpatient nullFlavo MNA [id number] Memoria 21:00:00 04:59:59 r Neurosurger 00 l y [facility] 2018-07-21 2018-07-22 Outpatient nullFlavo MNA [id number] Memoria 21:00:00 04:59:59 r Neurosurger 00 l y [facility] 2018-07-20 2018-07-22 Phone nullFlavo MNA [id number] Memoria 15:38:00 04:59:59 Message r Neurosurger 00 l y [facility] 2018-07-20 2018-07-22 Phone nullFlavo MNA [id number] Memoria 15:38:00 04:59:59 Message r Neurosurger 00 l y [facility] 2018-07-21 2018-07-21 Outpatient [facility] [id number] 16:00:00 23:59:59 2018-07-20 2018-07-21 [facility] [id number] 10:38:00 23:59:59 00 2018-07-21 2018-07-21 Outpatient [facility] [id number] Memoria 16:00:00 16:00:00 00 [facility] Results Test Description Test Time Test Comments Results Result Comments Source CHEM PANEL 2021-12-01 10:59:00 Test Item Value Reference Range Interpretation Comme nts Glucose Lvl (test code = Glucose Lvl) 99 70-99 [facility] [id number] 10:59:00 Test Item Value Reference Range Interpretation Comments BUN (test code = BUN) 24 7-22 [facility] Chat& (ChatAnd) [id number] 10:59:00 Test Item Value Reference Range Interpretation Comments Creatinine Lvl (test code = Creatinine 0.68 0.50-1.40 Lvl) [facility] [id number] 10:59:00 Test Item Value Reference Range Interpretation Comments Sodium Lvl (test code = Sodium Lvl) 144 135-145 [facility] Chat& (ChatAnd) [id number] 10:59:00 Test Item Value Reference Range Interpretation Comments Potassium Lvl (test code = Potassium 4.1 3.5-5.1 Lvl) [facility]deckAT[id number] 10:59:00 Test Item Value Reference Range Interpretation Comments Chloride Lvl (test code = Chloride Lvl) 113 95-109 [place] 878482-08-06 10:59:00 Test Item Value Reference Range Interpretation Comments CO2 (test code = CO2) 25 24-32 [facility] [id number] 10:59:00 Test Item Value Reference Range Interpretation Comments Calcium Lvl (test code = Calcium Lvl) 8.9 8.5-10.5 [facility] [id number] 10:59:00 Test Item Value Reference Range Interpretation Comments Total Protein (test code = Total 6.3 6.4-8.4 Protein) [facility]2022-08-06 10:59:00 Test Item Value Reference Range Interpretation Comments Albumin Lvl (test code = Albumin Lvl) 2.7 3.5-5.0 [facility] [id number] 10:59:00 Test Item Value Reference Range Interpretation Comments ALT (test code = ALT) 23 See_Comment [Auto mated message] The system which ge nerated this result transmit gill reference range : <=65. The reference range was not used to interpr et this result as len l/abnormal. [facility] [id number] 10:59:00 Test Item Value Reference Range Interpretation Comments AST (test code = AST) 22 See_Comment [Auto mated message] The system which ge nerated this result transmit gill reference range : <=37. The reference range was not used to interpr et this result as len l/abnormal. [facility] [id number] 10:59:00 Test Item Value Reference Range Interpretation Comments Alk Phos (test code = Alk Phos) 73 39-136 [facility] [id number] 10:59:00 Test Item Value Reference Range Interpretation Comments Bili Total (test code = Bili Total) 0.3 0.2-1.3 [facility] [id number] 10:59:00 Test Item Value Reference Range Interpretation Comments AGAP (test code = AGAP) 10.1 10.0-20.0 [facility] [place] [id number] 10:59:00 Test Item Value Reference Range Interpretation Comments B/C Ratio (test code = B/C Ratio) 35 1 6-25 [place] [address]-08-06 10:59:00 Test Item Value Reference Range Interpretation Comments Globulin (test code = Globulin) 3.6 2.7-4.2 [place] [address]-08-06 10:59:00 Test Item Value Reference Range Interpretation Comments A/G Ratio (test code = A/G Ratio) 0.8 1 0.7-1.6 [place] [address]-08-06 10:59:00 Test Item Value Reference Range Interpretation Comments eGFR (test code = eGFR) 102 [place] [address]-08-06 10:59:00 Test Item Value Reference Range Interpretation Comments Segs (test code = Segs) 62.6 45.0-75.0 [place] [address]-08-06 10:59:00 Test Item Value Reference Range Interpretation Comments Lymphocytes (test code = Lymphocytes) 26.0 20.0-40.0 [place] [address]-08-06 10:59:00 Test Item Value Reference Range Interpretation Comments Monocytes (test code = Monocytes) 10.0 2.0-12.0 [place] [address]-08-06 10:59:00 Test Item Value Reference Range Interpretation Comments Eosinophils (test code = 0.9 See_Comment [A utomated message] The Eosinophils) system which ge nerated this result tra nsmitted reference range : <=4.0. The reference r abdifatah was not used to int erpret this result as normal/abnormal . [place] [address]-08-06 10:59:00 Test Item Value Reference Range Interpretation Comments Basophils (test code = 0.5 See_Comment [Aut omated message] The Basophils) system which ge nerated this result tra nsmitted reference range : <=1.0. The reference r abdifatah was not used to int erpret this result as normal/abnormal . [place] [address]-08-06 10:59:00 Test Item Value Reference Range Interpretation Comments Neutrophils # (test code = Neutrophils 5.3 1.5-8.1 #) [place] [address]-08-06 10:59:00 Test Item Value Reference Range Interpretation Comments Lymphocytes # (test code = Lymphocytes 2.2 1.0-5.5 #) [id number] 10:59:00 Test Item Value Reference Range Interpretation Comments Monocytes # (test code 0.8 See_Comment [Aut omated message] The = Monocytes #) system which generated this result tra nsmitted reference range : <=0.8. The reference r abdifatah was not used to int erpret this result as normal/abnormal . [facility] CypressTrjmviqALMIRCZIAX4465-40-26 10:59:00 Test Item Value Reference Range Interpretation Comments Eosinophils # (test code 0.1 See_Comment [A utomated message] The = Eosinophils #) system whic h generated this result tra nsmitted reference range : <=0.5. The reference r abdifatah was not used to int erpret this result as normal/abnormal . [facility] CypressCzepginCACXVQCRDV3662-76-55 10:59:00 Test Item Value Reference Range Interpretation Comments WBC (test code = WBC) 8.4 3.7-10.4 [facility] Cy[id number] 10:59:00 Test Item Value Reference Range Interpretation Comments RBC (test code = RBC) 3.64 4.20-5.40 [place] 052862-08-06 10:59:00 Test Item Value Reference Range Interpretation Comments Hgb (test code = Hgb) 10.6 12.0-16.0 [place] 052862-08-06 10:59:00 Test Item Value Reference Range Interpretation Comments Hct (test code = Hct) 32.1 36.0-48.0 [place] 052862-08-06 10:59:00 Test Item Value Reference Range Interpretation Comments MCV (test code = MCV) 88.3 80.0-98.0 [place] 052862-08-06 10:59:00 Test Item Value Reference Range Interpretation Comments MCH (test code = MCH) 29.2 pg 27.0-31.0 [facility] [id number] 10:59:00 Test Item Value Reference Range Interpretation Comments MCHC (test code = MCHC) 33.1 32.0-36.0 [facility] Cy[id number] 10:59:00 Test Item Value Reference Range Interpretation Comments RDW (test code = RDW) 14.2 11.5-14.5 [place] 052862-08-06 10:59:00 Test Item Value Reference Range Interpretation Comments Platelet (test code = Platelet) 341 133-450 [facility] CypressThbiutlFDAOTFVASM3634-55-46 10:59:00 Test Item Value Reference Range Interpretation Comments MPV (test code = MPV) 8.3 7.4-10.4 [place] 878482-08-06 10:59:00 Test Item Value Reference Range Interpretation Comments Glucose Lvl (test code = Glucose Lvl) 99 70-99 [facility]2022-08-06 10:59:00 Test Item Value Reference Range Interpretation Comments BUN (test code = BUN) 24 7-22 [facility]2022-08-06 10:59:00 Test Item Value Reference Range Interpretation Comments Creatinine Lvl (test code = Creatinine 0.68 0.50-1.40 Lvl) [facility]2022-08-06 10:59:00 Test Item Value Reference Range Interpretation Comments Sodium Lvl (test code = Sodium Lvl) 144 135-145 [facility]2022-08-06 10:59:00 Test Item Value Reference Range Interpretation Comments Potassium Lvl (test code = Potassium 4.1 3.5-5.1 Lvl) [facility]2022-08-06 10:59:00 Test Item Value Reference Range Interpretation Comments Chloride Lvl (test code = Chloride Lvl) 113 95-109 [facility]2022-08-06 10:59:00 Test Item Value Reference Range Interpretation Comments CO2 (test code = CO2) 25 24-32 [place] 878482-08-06 10:59:00 Test Item Value Reference Range Interpretation Comments Calcium Lvl (test code = Calcium Lvl) 8.9 8.5-10.5 [place] 878482-08-06 10:59:00 Test Item Value Reference Range Interpretation Comments Total Protein (test code = Total 6.3 6.4-8.4 Protein) [place] 878482-08-06 10:59:00 Test Item Value Reference Range Interpretation Comments Albumin Lvl (test code = Albumin Lvl) 2.7 3.5-5.0 [place] 878482-08-06 10:59:00 Test Item Value Reference Range Interpretation Comments ALT (test code = ALT) 23 See_Comment [Auto mated message] The system which ge nerated this result transmit gill reference range : <=65. The reference range was not used to interpr et this result as len l/abnormal. [facility] [id number] 10:59:00 Test Item Value Reference Range Interpretation Comments AST (test code = AST) 22 See_Comment [Auto mated message] The system which ge nerated this result transmit gill reference range : <=37. The reference range was not used to interpr et this result as len l/abnormal. [facility] [id number] 10:59:00 Test Item Value Reference Range Interpretation Comments Alk Phos (test code = Alk Phos) 73 39-136 [facility] [id number] 10:59:00 Test Item Value Reference Range Interpretation Comments Bili Total (test code = Bili Total) 0.3 0.2-1.3 [facility] [id number] 10:59:00 Test Item Value Reference Range Interpretation Comments AGAP (test code = AGAP) 10.1 10.0-20.0 [facility] [id number] 10:59:00 Test Item Value Reference Range Interpretation Comments B/C Ratio (test code = B/C Ratio) 35 1 6-25 [facility] [id number] 10:59:00 Test Item Value Reference Range Interpretation Comments Globulin (test code = Globulin) 3.6 2.7-4.2 [facility] [id number] 10:59:00 Test Item Value Reference Range Interpretation Comments A/G Ratio (test code = A/G Ratio) 0.8 1 0.7-1.6 [facility] [id number] 10:59:00 Test Item Value Reference Range Interpretation Comments eGFR (test code = eGFR) 102 [facility] CypressAoqgtvgIFNXLCUPUU9710-37-08 10:59:00 Test Item Value Reference Range Interpretation Comments Segs (test code = Segs) 62.6 45.0-75.0 [facility] CenterEzvewoiCWQFAGGLMZ3787-93-85 10:59:00 Test Item Value Reference Range Interpretation Comments Lymphocytes (test code = Lymphocytes) 26.0 20.0-40.0 [place] 052862-08-06 10:59:00 Test Item Value Reference Range Interpretation Comments Monocytes (test code = Monocytes) 10.0 2.0-12.0 [place] 052862-08-06 10:59:00 Test Item Value Reference Range Interpretation Comments Eosinophils (test code = 0.9 See_Comment [A utomated message] The Eosinophils) system which ge nerated this result tra nsmitted reference range : <=4.0. The reference r abdifatah was not used to int erpret this result as normal/abnormal . [facility] CypressRmmgdciNPEKQAETGF1167-52-23 10:59:00 Test Item Value Reference Range Interpretation Comments Basophils (test code = 0.5 See_Comment [Aut omated message] The Basophils) system which ge nerated this result tra nsmitted reference range : <=1.0. The reference r abdifatah was not used to int erpret this result as normal/abnormal . [facility] CypressPqutdegPBWSXDABPJ1544-56-53 10:59:00 Test Item Value Reference Range Interpretation Comments Neutrophils # (test code = Neutrophils 5.3 1.5-8.1 #) [facility] CypressKsytnuvNEDIUAGCXO9126-14-18 10:59:00 Test Item Value Reference Range Interpretation Comments Lymphocytes # (test code = Lymphocytes 2.2 1.0-5.5 #) [facility] CypressRyaoelsRTCRLKBGJX8255-66-19 10:59:00 Test Item Value Reference Range Interpretation Comments Monocytes # (test code 0.8 See_Comment [Aut omated message] The = Monocytes #) system which generated this result tra nsmitted reference range : <=0.8. The reference r abdifatah was not used to int erpret this result as normal/abnormal . [facility] CypressFijqqfwOFUSXEPELZ4728-05-92 10:59:00 Test Item Value Reference Range Interpretation Comments Eosinophils # (test code 0.1 See_Comment [A utomated message] The = Eosinophils #) system whic h generated this result tra nsmitted reference range : <=0.5. The reference r abdifatah was not used to int erpret this result as normal/abnormal . [facility] CypressPwehzkbHHYTOOVCNC7841-54-37 10:59:00 Test Item Value Reference Range Interpretation Comments WBC (test code = WBC) 8.4 3.7-10.4 [place] 052862-08-06 10:59:00 Test Item Value Reference Range Interpretation Comments RBC (test code = RBC) 3.64 4.20-5.40 [place] 052862-08-06 10:59:00 Test Item Value Reference Range Interpretation Comments Hgb (test code = Hgb) 10.6 12.0-16.0 [place] 052862-08-06 10:59:00 Test Item Value Reference Range Interpretation Comments Hct (test code = Hct) 32.1 36.0-48.0 [facility] CypressYkzquzdEDZINMLHJY1735-15-01 10:59:00 Test Item Value Reference Range Interpretation Comments MCV (test code = MCV) 88.3 80.0-98.0 [facility] CypressQzigofxUAYKXHUZBW5849-95-45 10:59:00 Test Item Value Reference Range Interpretation Comments MCH (test code = MCH) 29.2 pg 27.0-31.0 [facility] CypressDgdhzqtIQKINQQZUS7456-39-27 10:59:00 Test Item Value Reference Range Interpretation Comments MCHC (test code = MCHC) 33.1 32.0-36.0 [facility] CypressYzrfxmgKOMTNBCBML0886-85-14 10:59:00 Test Item Value Reference Range Interpretation Comments RDW (test code = RDW) 14.2 11.5-14.5 [facility] CypressIspwicrWMHZWXMQVU7713-69-97 10:59:00 Test Item Value Reference Range Interpretation Comments Platelet (test code = Platelet) 341 133-450 [facility] CypressEcsvkpvUHSLLCJMZK5969-42-31 10:59:00 Test Item Value Reference Range Interpretation Comments MPV (test code = MPV) 8.3 7.4-10.4 [facility]2022-07-15 10:48:00 Test Item Value Reference Range Interpretation Comments Glucose Lvl (test code = Glucose Lvl) 108 70-99 [facility]2022-07-15 10:48:00 Test Item Value Reference Range Interpretation Comments BUN (test code = BUN) 17 7-22 [facility]2022-07-15 10:48:00 Test Item Value Reference Range Interpretation Comments Creatinine Lvl (test code = Creatinine 0.57 0.50-1.40 Lvl) [facility]2022-07-15 10:48:00 Test Item Value Reference Range Interpretation Comments Sodium Lvl (test code = Sodium Lvl) 145 135-145 [place] 878482-07-15 10:48:00 Test Item Value Reference Range Interpretation Comments Potassium Lvl (test code = Potassium 4.0 3.5-5.1 Lvl) [place] 878482-07-15 10:48:00 Test Item Value Reference Range Interpretation Comments Chloride Lvl (test code = Chloride Lvl) 113 95-109 [place] 878482-07-15 10:48:00 Test Item Value Reference Range Interpretation Comments CO2 (test code = CO2) 27 24-32 [place] 878482-07-15 10:48:00 Test Item Value Reference Range Interpretation Comments Calcium Lvl (test code = Calcium Lvl) 9.0 8.5-10.5 [place] 878482-07-15 10:48:00 Test Item Value Reference Range Interpretation Comments AGAP (test code = AGAP) 9.0 10.0-20.0 [place] 878482-07-15 10:48:00 Test Item Value Reference Range Interpretation Comments eGFR (test code = eGFR) 107 [place] 052862-07-15 10:48:00 Test Item Value Reference Range Interpretation Comments WBC (test code = WBC) 8.5 3.7-10.4 [place] 052862-07-15 10:48:00 Test Item Value Reference Range Interpretation Comments RBC (test code = RBC) 3.55 4.20-5.40 [place] 052862-07-15 10:48:00 Test Item Value Reference Range Interpretation Comments Hgb (test code = Hgb) 10.5 12.0-16.0 [place] 052862-07-15 10:48:00 Test Item Value Reference Range Interpretation Comments Hct (test code = Hct) 31.2 36.0-48.0 [place] [address]-07-15 10:48:00 Test Item Value Reference Range Interpretation Comments MCV (test code = MCV) 88.0 80.0-98.0 [place] [address]-07-15 10:48:00 Test Item Value Reference Range Interpretation Comments MCH (test code = MCH) 29.6 pg 27.0-31.0 [place] 052862-07-15 10:48:00 Test Item Value Reference Range Interpretation Comments MCHC (test code = MCHC) 33.6 32.0-36.0 [facility] CypressFplftosFXMKALDVJY0432-76-97 10:48:00 Test Item Value Reference Range Interpretation Comments RDW (test code = RDW) 14.3 11.5-14.5 [facility] CypressGztgmpvNSYHMADUKC8724-08-58 10:48:00 Test Item Value Reference Range Interpretation Comments Platelet (test code = Platelet) 212 133-450 [facility] CypressYgjjwhzKPPBXHXEFD2704-60-23 10:48:00 Test Item Value Reference Range Interpretation Comments MPV (test code = MPV) 8.3 7.4-10.4 [facility]2022-07-15 10:48:00 Test Item Value Reference Range Interpretation Comments Glucose Lvl (test code = Glucose Lvl) 108 70-99 [facility]2022-07-15 10:48:00 Test Item Value Reference Range Interpretation Comments BUN (test code = BUN) 17 7-22 [facility]2022-07-15 10:48:00 Test Item Value Reference Range Interpretation Comments Creatinine Lvl (test code = Creatinine 0.57 0.50-1.40 Lvl) [facility]2022-07-15 10:48:00 Test Item Value Reference Range Interpretation Comments Sodium Lvl (test code = Sodium Lvl) 145 135-145 [facility]2022-07-15 10:48:00 Test Item Value Reference Range Interpretation Comments Potassium Lvl (test code = Potassium 4.0 3.5-5.1 Lvl) [facility]2022-07-15 10:48:00 Test Item Value Reference Range Interpretation Comments Chloride Lvl (test code = Chloride Lvl) 113 95-109 [facility]2022-07-15 10:48:00 Test Item Value Reference Range Interpretation Comments CO2 (test code = CO2) 27 24-32 [facility]2022-07-15 10:48:00 Test Item Value Reference Range Interpretation Comments Calcium Lvl (test code = Calcium Lvl) 9.0 8.5-10.5 [facility]2022-07-15 10:48:00 Test Item Value Reference Range Interpretation Comments AGAP (test code = AGAP) 9.0 10.0-20.0 [facility] [id number] 10:48:00 Test Item Value Reference Range Interpretation Comments eGFR (test code = eGFR) 107 [facility]RfmwxvwBYNGLBGOQO5263-79-81 10:48:00 Test Item Value Reference Range Interpretation Comments WBC (test code = WBC) 8.5 3.7-10.4 [facility] CypressTxcnigaBGKQYNDKRP0403-43-80 10:48:00 Test Item Value Reference Range Interpretation Comments RBC (test code = RBC) 3.55 4.20-5.40 [facility] CypressBfxgezsTMMCSTIIHQ3090-44-85 10:48:00 Test Item Value Reference Range Interpretation Comments Hgb (test code = Hgb) 10.5 12.0-16.0 [facility] CypressAmtunywUJWVOEFPJZ1780-35-93 10:48:00 Test Item Value Reference Range Interpretation Comments Hct (test code = Hct) 31.2 36.0-48.0 [facility] CypressMpowhvnJZKUSSONOO1094-90-11 10:48:00 Test Item Value Reference Range Interpretation Comments MCV (test code = MCV) 88.0 80.0-98.0 [facility] CypressDczwwgaLNAEDYBSXD3582-57-81 10:48:00 Test Item Value Reference Range Interpretation Comments MCH (test code = MCH) 29.6 pg 27.0-31.0 [facility] CypressHwzuvipFVIEUWXVOV4689-26-12 10:48:00 Test Item Value Reference Range Interpretation Comments MCHC (test code = MCHC) 33.6 32.0-36.0 [facility] CypressKiiabrwHITSOOZTDS2880-60-47 10:48:00 Test Item Value Reference Range Interpretation Comments RDW (test code = RDW) 14.3 11.5-14.5 [facility] CypressGlqtmdsENABSTGSNI2197-76-30 10:48:00 Test Item Value Reference Range Interpretation Comments Platelet (test code = Platelet) 212 133-450 [facility] CypressQmzbjzbVQUBYXKQWL8001-36-76 10:48:00 Test Item Value Reference Range Interpretation Comments MPV (test code = MPV) 8.3 7.4-10.4 [facility] [id number] 14:58:00 Test Item Value Reference Range Interpretation Comments RBC product (test code Product available = RBC product) (11/08/21 9:58 AM) [facility] [id number] 14:58:00 Test Item Value Reference Range Interpretation Comments RBC product (test code Product available = RBC product) (11/08/21 9:58 AM) [facility] [id number] 13:00:00 Test Item Value Reference Range Interpretation Comments ABO/Rh (test code = ABO/Rh) A POS [facility] [id number] 13:00:00 Test Item Value Reference Range Interpretation Comments Antibody Scrn (test Negative (11/08/21 8:00 code = Antibody Scrn) AM) [facility] CypressHrhafpbQOLIHRHJHW5630-17-55 13:00:00 Test Item Value Reference Range Interpretation Comments WBC (test code = WBC) 5.7 3.7-10.4 [facility] CypressHxbkqqrGATQKUDKBB6949-85-97 13:00:00 Test Item Value Reference Range Interpretation Comments RBC (test code = RBC) 4.88 4.20-5.40 [facility] CypressXlzkuxpQADZGVSJII8994-88-86 13:00:00 Test Item Value Reference Range Interpretation Comments Hgb (test code = Hgb) 14.4 12.0-16.0 [facility] CypressMahgpkgUAOWCUWPKU3051-37-21 13:00:00 Test Item Value Reference Range Interpretation Comments Hct (test code = Hct) 42.9 36.0-48.0 [facility] CypressEoynyuyFMOOOQHCIZ2114-15-74 13:00:00 Test Item Value Reference Range Interpretation Comments MCV (test code = MCV) 87.9 80.0-98.0 [facility] CypressIsbtnfkHBEGGSDIWF7497-86-53 13:00:00 Test Item Value Reference Range Interpretation Comments MCH (test code = MCH) 29.5 pg 27.0-31.0 [facility] CypressBnsrbijMWBNVUGVYB0199-83-39 13:00:00 Test Item Value Reference Range Interpretation Comments MCHC (test code = MCHC) 33.6 32.0-36.0 [facility] CypressInihjdlALJDCLSMGY1459-71-80 13:00:00 Test Item Value Reference Range Interpretation Comments RDW (test code = RDW) 14.5 11.5-14.5 [facility] CypressUtsqbrlEJFKQVMWDY0764-66-61 13:00:00 Test Item Value Reference Range Interpretation Comments Platelet (test code = Platelet) 264 133-450 [facility] CypressDgknsuyNNNHBVVZTR7156-94-26 13:00:00 Test Item Value Reference Range Interpretation Comments MPV (test code = MPV) 8.3 7.4-10.4 [place] 052862-07-14 13:00:00 Test Item Value Reference Range Interpretation Comments Segs (test code = Segs) 54.7 45.0-75.0 [place] 052862-07-14 13:00:00 Test Item Value Reference Range Interpretation Comments Lymphocytes (test code = Lymphocytes) 34.4 20.0-40.0 [place] 052862-07-14 13:00:00 Test Item Value Reference Range Interpretation Comments Monocytes (test code = Monocytes) 8.2 2.0-12.0 [facility] CypressVjrptfnDWIQFCYOEZ7234-89-01 13:00:00 Test Item Value Reference Range Interpretation Comments Eosinophils (test code = 2.1 See_Comment [A utomated message] The Eosinophils) system which ge nerated this result tra nsmitted reference range : <=4.0. The reference r abdifatah was not used to int erpret this result as normal/abnormal . [facility] CypressZqssotxFHXGSLODTZ1589-80-85 13:00:00 Test Item Value Reference Range Interpretation Comments Basophils (test code = 0.6 See_Comment [Aut omated message] The Basophils) system which ge nerated this result tra nsmitted reference range : <=1.0. The reference r abdifatah was not used to int erpret this result as normal/abnormal . [place] 052862-07-14 13:00:00 Test Item Value Reference Range Interpretation Comments Neutrophils # (test code = Neutrophils 3.1 1.5-8.1 #) [facility] CypressOczsaylUPBPRRDIRV0070-64-68 13:00:00 Test Item Value Reference Range Interpretation Comments Lymphocytes # (test code = Lymphocytes 2.0 1.0-5.5 #) [place] 052862-07-14 13:00:00 Test Item Value Reference Range Interpretation Comments Monocytes # (test code 0.5 See_Comment [Aut omated message] The = Monocytes #) system which generated this result tra nsmitted reference range : <=0.8. The reference r abdifatah was not used to int erpret this result as normal/abnormal . [facility] CypressPmumvnrSYPBAGAHMH3253-09-46 13:00:00 Test Item Value Reference Range Interpretation Comments Eosinophils # (test code 0.1 See_Comment [A utomated message] The = Eosinophils #) system whic h generated this result tra nsmitted reference range : <=0.5. The reference r abdifatah was not used to int erpret this result as normal/abnormal . [facility] [id number] 13:00:00 Test Item Value Reference Range Interpretation Comments ABO/Rh (test code = ABO/Rh) A POS [facility]Power[facility] [id number] 13:00:00 Test Item Value Reference Range Interpretation Comments Antibody Scrn (test Negative (11/08/21 8:00 code = Antibody Scrn) AM) [facility] CypressUtebaysDKVRWBCLZG1434-32-40 13:00:00 Test Item Value Reference Range Interpretation Comments WBC (test code = WBC) 5.7 3.7-10.4 [facility] CypressIpqwcacKRTHNOLKJM9823-20-55 13:00:00 Test Item Value Reference Range Interpretation Comments RBC (test code = RBC) 4.88 4.20-5.40 [facility] CypressKuwufixDDSVJOJSID2982-94-75 13:00:00 Test Item Value Reference Range Interpretation Comments Hgb (test code = Hgb) 14.4 12.0-16.0 [facility]XhhqsauYJETMNFJBP1727-32-74 13:00:00 Test Item Value Reference Range Interpretation Comments Hct (test code = Hct) 42.9 36.0-48.0 [facility] CypressAmibiiwTNVNSSIPFJ0069-78-33 13:00:00 Test Item Value Reference Range Interpretation Comments MCV (test code = MCV) 87.9 80.0-98.0 [facility] CypressIkwmrbcGKNNWORGAE2839-48-51 13:00:00 Test Item Value Reference Range Interpretation Comments MCH (test code = MCH) 29.5 pg 27.0-31.0 [facility] CypressCqublxxMDQHHUKSKR4649-40-45 13:00:00 Test Item Value Reference Range Interpretation Comments MCHC (test code = MCHC) 33.6 32.0-36.0 [facility] CypressIyxqmazVJMXAGMDHF5098-76-54 13:00:00 Test Item Value Reference Range Interpretation Comments RDW (test code = RDW) 14.5 11.5-14.5 [facility] CypressYnvtbnfECBRHBIFUO5889-57-73 13:00:00 Test Item Value Reference Range Interpretation Comments Platelet (test code = Platelet) 264 133-450 [facility] CypressIfdunxbTVLNCIOOJY8193-90-65 13:00:00 Test Item Value Reference Range Interpretation Comments MPV (test code = MPV) 8.3 7.4-10.4 [facility] CypressOlmzsqrDAXFCRKVHY1501-83-21 13:00:00 Test Item Value Reference Range Interpretation Comments Segs (test code = Segs) 54.7 45.0-75.0 [facility] CypressFrftwewRWOVDEYIPI0946-51-49 13:00:00 Test Item Value Reference Range Interpretation Comments Lymphocytes (test code = Lymphocytes) 34.4 20.0-40.0 [place] 052862-07-14 13:00:00 Test Item Value Reference Range Interpretation Comments Monocytes (test code = Monocytes) 8.2 2.0-12.0 [facility] CypressVhipcjtDHXCOCIWBC4768-40-55 13:00:00 Test Item Value Reference Range Interpretation Comments Eosinophils (test code = 2.1 See_Comment [A utomated message] The Eosinophils) system which ge nerated this result tra nsmitted reference range : <=4.0. The reference r abdifatah was not used to int erpret this result as normal/abnormal . [facility] CypressPscusnbZXFUMYZXYS9030-11-21 13:00:00 Test Item Value Reference Range Interpretation Comments Basophils (test code = 0.6 See_Comment [Aut omated message] The Basophils) system which ge nerated this result tra nsmitted reference range : <=1.0. The reference r abdifatah was not used to int erpret this result as normal/abnormal . [facility] CypressUmoazaxQMJWNQOQLJ2957-35-41 13:00:00 Test Item Value Reference Range Interpretation Comments Neutrophils # (test code = Neutrophils 3.1 1.5-8.1 #) [facility] CypressDboxznvREPZHKFLOZ9809-76-03 13:00:00 Test Item Value Reference Range Interpretation Comments Lymphocytes # (test code = Lymphocytes 2.0 1.0-5.5 #) [place] 052862-07-14 13:00:00 Test Item Value Reference Range Interpretation Comments Monocytes # (test code 0.5 See_Comment [Aut omated message] The = Monocytes #) system which generated this result tra nsmitted reference range : <=0.8. The reference r abdifatah was not used to int erpret this result as normal/abnormal . [place] [address]-07-14 13:00:00 Test Item Value Reference Range Interpretation Comments Eosinophils # (test code 0.1 See_Comment [A utomated message] The = Eosinophils #) system whic h generated this result tra nsmitted reference range : <=0.5. The reference r abdifatah was not used to int erpret this result as normal/abnormal . [facility]OutevetOEPTDBJCQK9544-99-56 15:22:00 Test Item Value Reference Range Interpretation Comments Coronavirus (COVID-19) Not Detected (08/23/21 KASSY (test code = 10:22 AM) Coronavirus (COVID-19) KASSY) [facility] HospitalLviffhnUIXQAVJUPI9970-97-16 15:22:00 Test Item Value Reference Range Interpretation Comments Coronavirus (COVID-19) Not Detected (08/23/21 KASSY (test code = 10:22 AM) Coronavirus (COVID-19) KASSY) [facility] CypressVfbhnfqYKRMRQKIRO1317-87-76 10:42:00 Test Item Value Reference Range Interpretation Comments WBC (test code = WBC) 5.7 3.7-10.4 [facility] CypressBgmwfmkLYXKVNIXAW8094-47-18 10:42:00 Test Item Value Reference Range Interpretation Comments RBC (test code = RBC) 3.90 4.20-5.40 [facility] CypressQiuircdATQGSDATDM4952-54-91 10:42:00 Test Item Value Reference Range Interpretation Comments Hgb (test code = Hgb) 11.6 12.0-16.0 [facility] CypressLsoobfyPELQHVOROY5987-70-36 10:42:00 Test Item Value Reference Range Interpretation Comments Hct (test code = Hct) 34.7 36.0-48.0 [facility] CypressIjmrdeuEGVEIMBEJI9554-36-87 10:42:00 Test Item Value Reference Range Interpretation Comments MCV (test code = MCV) 89.1 80.0-98.0 [place] 052862-04-09 10:42:00 Test Item Value Reference Range Interpretation Comments MCH (test code = MCH) 29.8 pg 27.0-31.0 [facility] CypressMaantriAGFIMYKLHQ6446-72-11 10:42:00 Test Item Value Reference Range Interpretation Comments MCHC (test code = MCHC) 33.5 32.0-36.0 [facility] CypressQqlfyqcWTTAICMSAI9171-05-42 10:42:00 Test Item Value Reference Range Interpretation Comments RDW (test code = RDW) 14.6 11.5-14.5 [place] 052862-04-09 10:42:00 Test Item Value Reference Range Interpretation Comments Platelet (test code = Platelet) 259 133-450 [place] 052862-04-09 10:42:00 Test Item Value Reference Range Interpretation Comments MPV (test code = MPV) 8.6 7.4-10.4 [facility] CypressWswlhzjKHNOLTGNQW4376-50-38 10:42:00 Test Item Value Reference Range Interpretation Comments Segs (test code = Segs) 55.2 45.0-75.0 [place] 052862-04-09 10:42:00 Test Item Value Reference Range Interpretation Comments Lymphocytes (test code = Lymphocytes) 33.3 20.0-40.0 [place] 052862-04-09 10:42:00 Test Item Value Reference Range Interpretation Comments Monocytes (test code = Monocytes) 9.5 2.0-12.0 [place] 052862-04-09 10:42:00 Test Item Value Reference Range Interpretation Comments Eosinophils (test code = 1.5 See_Comment [A utomated message] The Eosinophils) system which ge nerated this result tra nsmitted reference range : <=4.0. The reference r abdifatah was not used to int erpret this result as normal/abnormal . [facility] CypressOmbjkipYTGEXJXBZR7243-06-48 10:42:00 Test Item Value Reference Range Interpretation Comments Basophils (test code = 0.5 See_Comment [Aut omated message] The Basophils) system which ge nerated this result tra nsmitted reference range : <=1.0. The reference r abdifatah was not used to int erpret this result as normal/abnormal . [facility] CypressAjetwyuADPATAYEHZ7054-36-14 10:42:00 Test Item Value Reference Range Interpretation Comments Neutrophils # (test code = Neutrophils 3.1 1.5-8.1 #) [place] 052862-04-09 10:42:00 Test Item Value Reference Range Interpretation Comments Lymphocytes # (test code = Lymphocytes 1.9 1.0-5.5 #) [place] 052862-04-09 10:42:00 Test Item Value Reference Range Interpretation Comments Monocytes # (test code 0.5 See_Comment [Aut omated message] The = Monocytes #) system which generated this result tra nsmitted reference range : <=0.8. The reference r abdifatah was not used to int erpret this result as normal/abnormal . [facility] CypressIraeietYTCTNLHRFZ6851-25-67 10:42:00 Test Item Value Reference Range Interpretation Comments Eosinophils # (test code 0.1 See_Comment [A utomated message] The = Eosinophils #) system whic h generated this result tra nsmitted reference range : <=0.5. The reference r abdifatah was not used to int erpret this result as normal/abnormal . [facility] CenterVnjayrgNBTIWESFRR1317-51-52 10:42:00 Test Item Value Reference Range Interpretation Comments WBC (test code = WBC) 5.7 3.7-10.4 [facility] CypressUocvpqeFTRFVVBCAI4983-71-95 10:42:00 Test Item Value Reference Range Interpretation Comments RBC (test code = RBC) 3.90 4.20-5.40 [facility] CenterAckawjdXSTANEPUSB0453-82-83 10:42:00 Test Item Value Reference Range Interpretation Comments Hgb (test code = Hgb) 11.6 12.0-16.0 [facility] CenterWjvrqltCLWXJBCRZZ4244-00-96 10:42:00 Test Item Value Reference Range Interpretation Comments Hct (test code = Hct) 34.7 36.0-48.0 [facility] CypressMtkgjsbLMHCMORPLK2899-44-72 10:42:00 Test Item Value Reference Range Interpretation Comments MCV (test code = MCV) 89.1 80.0-98.0 [facility] CenterRhskqnyUOGNPJXMLO1804-62-73 10:42:00 Test Item Value Reference Range Interpretation Comments MCH (test code = MCH) 29.8 pg 27.0-31.0 [facility] CypressQagcbnlXQVXPLFGFJ1720-63-79 10:42:00 Test Item Value Reference Range Interpretation Comments MCHC (test code = MCHC) 33.5 32.0-36.0 [facility] CypressLycwcafCXEZJGMFNC4986-11-93 10:42:00 Test Item Value Reference Range Interpretation Comments RDW (test code = RDW) 14.6 11.5-14.5 [facility] CenterPehmfbeOBORNQIUHC4470-27-26 10:42:00 Test Item Value Reference Range Interpretation Comments Platelet (test code = Platelet) 259 133-450 [place] 052862-04-09 10:42:00 Test Item Value Reference Range Interpretation Comments MPV (test code = MPV) 8.6 7.4-10.4 [place] 052862-04-09 10:42:00 Test Item Value Reference Range Interpretation Comments Segs (test code = Segs) 55.2 45.0-75.0 [place] [address]-04-09 10:42:00 Test Item Value Reference Range Interpretation Comments Lymphocytes (test code = Lymphocytes) 33.3 20.0-40.0 [place] [address]-04-09 10:42:00 Test Item Value Reference Range Interpretation Comments Monocytes (test code = Monocytes) 9.5 2.0-12.0 [place] [address]-04-09 10:42:00 Test Item Value Reference Range Interpretation Comments Eosinophils (test code = 1.5 See_Comment [A utomated message] The Eosinophils) system which ge nerated this result tra nsmitted reference range : <=4.0. The reference r abdifatah was not used to int erpret this result as normal/abnormal . [facility] CypressCmtcngcFMRHVRZLPQ0011-79-86 10:42:00 Test Item Value Reference Range Interpretation Comments Basophils (test code = 0.5 See_Comment [Aut omated message] The Basophils) system which ge nerated this result tra nsmitted reference range : <=1.0. The reference r abdifatah was not used to int erpret this result as normal/abnormal . [facility] CypressCfzmawvIJJMSNOBOD9425-90-04 10:42:00 Test Item Value Reference Range Interpretation Comments Neutrophils # (test code = Neutrophils 3.1 1.5-8.1 #) [place] 052862-04-09 10:42:00 Test Item Value Reference Range Interpretation Comments Lymphocytes # (test code = Lymphocytes 1.9 1.0-5.5 #) [place] [address]-04-09 10:42:00 Test Item Value Reference Range Interpretation Comments Monocytes # (test code 0.5 See_Comment [Aut omated message] The = Monocytes #) system which generated this result tra nsmitted reference range : <=0.8. The reference r abdifatah was not used to int erpret this result as normal/abnormal . [place] [address]-04-09 10:42:00 Test Item Value Reference Range Interpretation Comments Eosinophils # (test code 0.1 See_Comment [A utomated message] The = Eosinophils #) system [employer] h generated this result tra nsmitted reference range : <=0.5. The reference r abdifatah was not used to int erpret this result as normal/abnormal . [facility]2022-04-08 10:59:00 Test Item Value Reference Range Interpretation Comments Glucose Lvl (test code = Glucose Lvl) 96 70-99 [facility] CenterRing[facility] [id number] 10:59:00 Test Item Value Reference Range Interpretation Comments BUN (test code = BUN) 16 7-22 [facility]2022-04-08 10:59:00 Test Item Value Reference Range Interpretation Comments Creatinine Lvl (test code = Creatinine 0.66 0.50-1.40 Lvl) [facility]2022-04-08 10:59:00 Test Item Value Reference Range Interpretation Comments Sodium Lvl (test code = Sodium Lvl) 141 135-145 [facility] DFSZY2325-19-18 10:59:00 Test Item Value Reference Range Interpretation Comments Potassium Lvl (test code = Potassium 3.8 3.5-5.1 Lvl) [facility] [id number] 10:59:00 Test Item Value Reference Range Interpretation Comments Chloride Lvl (test code = Chloride Lvl) 109 95-109 [facility] [id number] 10:59:00 Test Item Value Reference Range Interpretation Comments CO2 (test code = CO2) 26 24-32 [facility] [id number] 10:59:00 Test Item Value Reference Range Interpretation Comments AGAP (test code = AGAP) 9.8 10.0-20.0 [facility] RGHHD9538-55-27 10:59:00 Test Item Value Reference Range Interpretation Comments Calcium Lvl (test code = Calcium Lvl) 9.2 8.5-10.5 [facility] BDQRJ8310-34-28 10:59:00 Test Item Value Reference Range Interpretation Comments eGFR (test code = eGFR) 99 [facility] CypressOaorojpSFBTGNSJWW8387-50-20 10:59:00 Test Item Value Reference Range Interpretation Comments WBC (test code = WBC) 7.9 3.7-10.4 [place] 052862-04-08 10:59:00 Test Item Value Reference Range Interpretation Comments RBC (test code = RBC) 4.05 4.20-5.40 [place] 052862-04-08 10:59:00 Test Item Value Reference Range Interpretation Comments Hgb (test code = Hgb) 11.8 12.0-16.0 [place] 052862-04-08 10:59:00 Test Item Value Reference Range Interpretation Comments Hct (test code = Hct) 35.9 36.0-48.0 [facility] CypressPkpuyptSXGXBEHBLE3266-09-04 10:59:00 Test Item Value Reference Range Interpretation Comments MCV (test code = MCV) 88.7 80.0-98.0 [facility] CypressYjoccxxVIDWXVMTTC1419-90-53 10:59:00 Test Item Value Reference Range Interpretation Comments MCH (test code = MCH) 29.2 pg 27.0-31.0 [facility] CypressZqxvpayPBABZOEEFT7221-22-02 10:59:00 Test Item Value Reference Range Interpretation Comments MCHC (test code = MCHC) 32.9 32.0-36.0 [facility] CypressPdztbsgVVNLTPJXEZ4864-28-59 10:59:00 Test Item Value Reference Range Interpretation Comments RDW (test code = RDW) 14.8 11.5-14.5 [facility] CypressPaptlkaDAOWJSRORT0135-61-65 10:59:00 Test Item Value Reference Range Interpretation Comments Platelet (test code = Platelet) 280 133-450 [facility] CypressVhygcxqPEWCTGEPYB1729-51-33 10:59:00 Test Item Value Reference Range Interpretation Comments MPV (test code = MPV) 8.0 7.4-10.4 [facility] CypressJikvecxNXJRLQWNGC3555-56-44 10:59:00 Test Item Value Reference Range Interpretation Comments Segs (test code = Segs) 67.8 45.0-75.0 [place] 052862-04-08 10:59:00 Test Item Value Reference Range Interpretation Comments Lymphocytes (test code = Lymphocytes) 22.8 20.0-40.0 [facility]2022-04-08 10:59:00 Test Item Value Reference Range Interpretation Comments Glucose Lvl (test code = Glucose Lvl) 96 70-99 [facility]2022-04-08 10:59:00 Test Item Value Reference Range Interpretation Comments BUN (test code = BUN) 16 7-22 [facility]2022-04-08 10:59:00 Test Item Value Reference Range Interpretation Comments Creatinine Lvl (test code = Creatinine 0.66 0.50-1.40 Lvl) [facility]2022-04-08 10:59:00 Test Item Value Reference Range Interpretation Comments Sodium Lvl (test code = Sodium Lvl) 141 135-145 [place] 878482-04-08 10:59:00 Test Item Value Reference Range Interpretation Comments Potassium Lvl (test code = Potassium 3.8 3.5-5.1 Lvl) [facility]2022-04-08 10:59:00 Test Item Value Reference Range Interpretation Comments Chloride Lvl (test code = Chloride Lvl) 109 95-109 [facility]2022-04-08 10:59:00 Test Item Value Reference Range Interpretation Comments CO2 (test code = CO2) 26 24-32 [facility] [facility]2022-04-08 10:59:00 Test Item Value Reference Range Interpretation Comments AGAP (test code = AGAP) 9.8 10.0-20.0 [facility]MepbenuXIJTGQJYWV4705-37-99 10:59:00 Test Item Value Reference Range Interpretation Comments Monocytes (test code = Monocytes) 8.8 2.0-12.0 [facility]2022-04-08 10:59:00 Test Item Value Reference Range Interpretation Comments Calcium Lvl (test code = Calcium Lvl) 9.2 8.5-10.5 [facility]2022-04-08 10:59:00 Test Item Value Reference Range Interpretation Comments eGFR (test code = eGFR) 99 [facility] CypressFumkdkpPULJGFIIEV9861-23-82 10:59:00 Test Item Value Reference Range Interpretation Comments WBC (test code = WBC) 7.9 3.7-10.4 [facility] CypressDgtgxoiEPGWMZIALV1914-67-82 10:59:00 Test Item Value Reference Range Interpretation Comments RBC (test code = RBC) 4.05 4.20-5.40 [place] 052862-04-08 10:59:00 Test Item Value Reference Range Interpretation Comments Hgb (test code = Hgb) 11.8 12.0-16.0 [place] [address]-04-08 10:59:00 Test Item Value Reference Range Interpretation Comments Hct (test code = Hct) 35.9 36.0-48.0 [facility] CypressRgtgbpsYYWFOSWNFT7113-94-65 10:59:00 Test Item Value Reference Range Interpretation Comments MCV (test code = MCV) 88.7 80.0-98.0 [facility] CypressUcwzklkWVERXKOSMS0489-96-46 10:59:00 Test Item Value Reference Range Interpretation Comments MCH (test code = MCH) 29.2 pg 27.0-31.0 [facility] CypressPovliqbEBBJCRQTCS2348-80-39 10:59:00 Test Item Value Reference Range Interpretation Comments MCHC (test code = MCHC) 32.9 32.0-36.0 [facility] CypressQptnlieHWLRMSHYWP3584-35-65 10:59:00 Test Item Value Reference Range Interpretation Comments RDW (test code = RDW) 14.8 11.5-14.5 [facility] CypressOgrnzrzYKUBYJSTPX5138-58-38 10:59:00 Test Item Value Reference Range Interpretation Comments Eosinophils (test code = 0.4 See_Comment [A utomated message] The Eosinophils) system which ge nerated this result tra nsmitted reference range : <=4.0. The reference r abdifatah was not used to int erpret this result as normal/abnormal . [facility] CypressNzhooliWHQGFEDVPX3437-32-17 10:59:00 Test Item Value Reference Range Interpretation Comments Platelet (test code = Platelet) 280 133-450 [facility] CypressWizxgyfIREFQXMYDZ0722-72-99 10:59:00 Test Item Value Reference Range Interpretation Comments MPV (test code = MPV) 8.0 7.4-10.4 [place] 052862-04-08 10:59:00 Test Item Value Reference Range Interpretation Comments Segs (test code = Segs) 67.8 45.0-75.0 [place] [address]-04-08 10:59:00 Test Item Value Reference Range Interpretation Comments Lymphocytes (test code = Lymphocytes) 22.8 20.0-40.0 [place] 052862-04-08 10:59:00 Test Item Value Reference Range Interpretation Comments Monocytes (test code = Monocytes) 8.8 2.0-12.0 [place] 052862-04-08 10:59:00 Test Item Value Reference Range Interpretation Comments Eosinophils (test code = 0.4 See_Comment [A utomated message] The Eosinophils) system which ge nerated this result tra nsmitted reference range : <=4.0. The reference r abdifatah was not used to int erpret this result as normal/abnormal . [facility] CypressTyvuzcvUDSAUMPAFC7720-31-60 10:59:00 Test Item Value Reference Range Interpretation Comments Basophils (test code = 0.2 See_Comment [Aut omated message] The Basophils) system which ge nerated this result tra nsmitted reference range : <=1.0. The reference r abdifatah was not used to int erpret this result as normal/abnormal . [facility] CypressGjqxxgdCRHEYXQGAR6613-04-80 10:59:00 Test Item Value Reference Range Interpretation Comments Neutrophils # (test code = Neutrophils 5.3 1.5-8.1 #) [facility] CypressTfbxiqyIDBXBVPLEJ7572-25-30 10:59:00 Test Item Value Reference Range Interpretation Comments Lymphocytes # (test code = Lymphocytes 1.8 1.0-5.5 #) [facility] CypressAcijqelYMBJQUOWJF6921-24-56 10:59:00 Test Item Value Reference Range Interpretation Comments Monocytes # (test code 0.7 See_Comment [Aut omated message] The = Monocytes #) system which generated this result tra nsmitted reference range : <=0.8. The reference r abdifatah was not used to int erpret this result as normal/abnormal . [facility] CypressYyhsrekPJSLRAGRIK5443-47-62 10:59:00 Test Item Value Reference Range Interpretation Comments Basophils (test code = 0.2 See_Comment [Aut omated message] The Basophils) system which ge nerated this result tra nsmitted reference range : <=1.0. The reference r abdifatah was not used to int erpret this result as normal/abnormal . [facility] CypressPzktllfSLQJPYUWDU8131-82-40 10:59:00 Test Item Value Reference Range Interpretation Comments Neutrophils # (test code = Neutrophils 5.3 1.5-8.1 #) [facility] CypressGycnbflPAKSQECTMC5278-92-30 10:59:00 Test Item Value Reference Range Interpretation Comments Lymphocytes # (test code = Lymphocytes 1.8 1.0-5.5 #) [facility] CypressKupjrjyZXOGZJHIUD3703-40-48 10:59:00 Test Item Value Reference Range Interpretation Comments Monocytes # (test code 0.7 See_Comment [Aut omated message] The = Monocytes #) system which generated this result tra nsmitted reference range : <=0.8. The reference r abdifatah was not used to int erpret this result as normal/abnormal . [facility]2022-04-07 22:20:00 Test Item Value Reference Range Interpretation Comments Glucose Lvl (test code = Glucose Lvl) 139 70-99 [place] 878482-04-07 22:20:00 Test Item Value Reference Range Interpretation Comments BUN (test code = BUN) 14 7-22 [place] 878482-04-07 22:20:00 Test Item Value Reference Range Interpretation Comments Creatinine Lvl (test code = Creatinine 0.59 0.50-1.40 Lvl) [place] 878482-04-07 22:20:00 Test Item Value Reference Range Interpretation Comments Sodium Lvl (test code = Sodium Lvl) 141 135-145 [place] 878482-04-07 22:20:00 Test Item Value Reference Range Interpretation Comments Potassium Lvl (test code = Potassium 4.0 3.5-5.1 Lvl) [facility]2022-04-07 22:20:00 Test Item Value Reference Range Interpretation Comments Chloride Lvl (test code = Chloride Lvl) 109 95-109 [place] 878482-04-07 22:20:00 Test Item Value Reference Range Interpretation Comments CO2 (test code = CO2) 25 24-32 [place] 878482-04-07 22:20:00 Test Item Value Reference Range Interpretation Comments Calcium Lvl (test code = Calcium Lvl) 9.3 8.5-10.5 [place] 878482-04-07 22:20:00 Test Item Value Reference Range Interpretation Comments AGAP (test code = AGAP) 11.0 10.0-20.0 [place] 878482-04-07 22:20:00 Test Item Value Reference Range Interpretation Comments eGFR (test code = eGFR) 103 [place] 052862-04-07 22:20:00 Test Item Value Reference Range Interpretation Comments WBC (test code = WBC) 7.2 3.7-10.4 [place] 052862-04-07 22:20:00 Test Item Value Reference Range Interpretation Comments RBC (test code = RBC) 4.48 4.20-5.40 [facility] CypressUpmninpCVZMTVTVPN5421-97-75 22:20:00 Test Item Value Reference Range Interpretation Comments Hgb (test code = Hgb) 12.9 12.0-16.0 [place] 052862-04-07 22:20:00 Test Item Value Reference Range Interpretation Comments Hct (test code = Hct) 39.5 36.0-48.0 [place] 052862-04-07 22:20:00 Test Item Value Reference Range Interpretation Comments MCV (test code = MCV) 88.1 80.0-98.0 [place] 052862-04-07 22:20:00 Test Item Value Reference Range Interpretation Comments MCH (test code = MCH) 28.9 pg 27.0-31.0 [place] 052862-04-07 22:20:00 Test Item Value Reference Range Interpretation Comments MCHC (test code = MCHC) 32.8 32.0-36.0 [place] 052862-04-07 22:20:00 Test Item Value Reference Range Interpretation Comments RDW (test code = RDW) 14.5 11.5-14.5 [place] 052862-04-07 22:20:00 Test Item Value Reference Range Interpretation Comments Platelet (test code = Platelet) 286 133-450 [facility] CypressDcvachxFFAMFDEXTN5617-61-74 22:20:00 Test Item Value Reference Range Interpretation Comments MPV (test code = MPV) 8.2 7.4-10.4 [place] 052862-04-07 22:20:00 Test Item Value Reference Range Interpretation Comments Segs (test code = Segs) 89.9 45.0-75.0 [place] 052862-04-07 22:20:00 Test Item Value Reference Range Interpretation Comments Lymphocytes (test code = Lymphocytes) 8.8 20.0-40.0 [place] [address]-04-07 22:20:00 Test Item Value Reference Range Interpretation Comments Monocytes (test code = Monocytes) 1.0 2.0-12.0 [facility] CypressFyvnuybYKFLDDURMM5371-44-90 22:20:00 Test Item Value Reference Range Interpretation Comments Eosinophils (test code = 0.1 See_Comment [A utomated message] The Eosinophils) system which ge nerated this result tra nsmitted reference range : <=4.0. The reference r abdifatah was not used to int erpret this result as normal/abnormal . [facility]TkmtwzdHMIINRNAWI3076-54-90 22:20:00 Test Item Value Reference Range Interpretation Comments Basophils (test code = 0.2 See_Comment [Aut omated message] The Basophils) system which ge nerated this result tra nsmitted reference range : <=1.0. The reference r abdifatah was not used to int erpret this result as normal/abnormal . [facility] CypressTumbcxsXPMVUDWZRK7236-82-79 22:20:00 Test Item Value Reference Range Interpretation Comments Neutrophils # (test code = Neutrophils 6.4 1.5-8.1 #) [place] 052862-04-07 22:20:00 Test Item Value Reference Range Interpretation Comments Lymphocytes # (test code = Lymphocytes 0.6 1.0-5.5 #) [place] 052862-04-07 22:20:00 Test Item Value Reference Range Interpretation Comments Monocytes # (test code 0.1 See_Comment [Aut omated message] The = Monocytes #) system which generated this result tra nsmitted reference range : <=0.8. The reference r abdifatah was not used to int erpret this result as normal/abnormal . [facility] [id number] 22:20:00 Test Item Value Reference Range Interpretation Comments Glucose Lvl (test code = Glucose Lvl) 139 70-99 [facility] [id number] 22:20:00 Test Item Value Reference Range Interpretation Comments BUN (test code = BUN) 14 7-22 [facility] [id number] 22:20:00 Test Item Value Reference Range Interpretation Comments Creatinine Lvl (test code = Creatinine 0.59 0.50-1.40 Lvl) [facility] [id number] 22:20:00 Test Item Value Reference Range Interpretation Comments Sodium Lvl (test code = Sodium Lvl) 141 135-145 [facility] [id number] 22:20:00 Test Item Value Reference Range Interpretation Comments Potassium Lvl (test code = Potassium 4.0 3.5-5.1 Lvl) [facility] [id number] 22:20:00 Test Item Value Reference Range Interpretation Comments Chloride Lvl (test code = Chloride Lvl) 109 95-109 [facility]2022-04-07 22:20:00 Test Item Value Reference Range Interpretation Comments CO2 (test code = CO2) 25 24-32 [place] 878482-04-07 22:20:00 Test Item Value Reference Range Interpretation Comments Calcium Lvl (test code = Calcium Lvl) 9.3 8.5-10.5 [place] 878482-04-07 22:20:00 Test Item Value Reference Range Interpretation Comments AGAP (test code = AGAP) 11.0 10.0-20.0 [facility]2022-04-07 22:20:00 Test Item Value Reference Range Interpretation Comments eGFR (test code = eGFR) 103 [facility] CypressOzahcqqAAVWBPAWUK5922-02-99 22:20:00 Test Item Value Reference Range Interpretation Comments WBC (test code = WBC) 7.2 3.7-10.4 [place] 052862-04-07 22:20:00 Test Item Value Reference Range Interpretation Comments RBC (test code = RBC) 4.48 4.20-5.40 [facility] CypressQcdgblwTIUCOPREYC0749-56-40 22:20:00 Test Item Value Reference Range Interpretation Comments Hgb (test code = Hgb) 12.9 12.0-16.0 [facility] CypressHkwbzwgWVARGTJUER7325-57-93 22:20:00 Test Item Value Reference Range Interpretation Comments Hct (test code = Hct) 39.5 36.0-48.0 [place] 052862-04-07 22:20:00 Test Item Value Reference Range Interpretation Comments MCV (test code = MCV) 88.1 80.0-98.0 [place] [address]-04-07 22:20:00 Test Item Value Reference Range Interpretation Comments MCH (test code = MCH) 28.9 pg 27.0-31.0 [place] 052862-04-07 22:20:00 Test Item Value Reference Range Interpretation Comments MCHC (test code = MCHC) 32.8 32.0-36.0 [place] 052862-04-07 22:20:00 Test Item Value Reference Range Interpretation Comments RDW (test code = RDW) 14.5 11.5-14.5 [place] 052862-04-07 22:20:00 Test Item Value Reference Range Interpretation Comments Platelet (test code = Platelet) 286 133-450 [place] 052862-04-07 22:20:00 Test Item Value Reference Range Interpretation Comments MPV (test code = MPV) 8.2 7.4-10.4 [place] 052862-04-07 22:20:00 Test Item Value Reference Range Interpretation Comments Segs (test code = Segs) 89.9 45.0-75.0 [place] 052862-04-07 22:20:00 Test Item Value Reference Range Interpretation Comments Lymphocytes (test code = Lymphocytes) 8.8 20.0-40.0 [place] 052862-04-07 22:20:00 Test Item Value Reference Range Interpretation Comments Monocytes (test code = Monocytes) 1.0 2.0-12.0 [place] 052862-04-07 22:20:00 Test Item Value Reference Range Interpretation Comments Eosinophils (test code = 0.1 See_Comment [A utomated message] The Eosinophils) system which ge nerated this result tra nsmitted reference range : <=4.0. The reference r abdifatah was not used to int erpret this result as normal/abnormal . [facility] CypressWhkrpkxGSHZJQXDKI6325-18-62 22:20:00 Test Item Value Reference Range Interpretation Comments Basophils (test code = 0.2 See_Comment [Aut omated message] The Basophils) system which ge nerated this result tra nsmitted reference range : <=1.0. The reference r abdifatah was not used to int erpret this result as normal/abnormal . [facility] CypressSotddbjEWRDEBUMIH0934-94-05 22:20:00 Test Item Value Reference Range Interpretation Comments Neutrophils # (test code = Neutrophils 6.4 1.5-8.1 #) [place] 052862-04-07 22:20:00 Test Item Value Reference Range Interpretation Comments Lymphocytes # (test code = Lymphocytes 0.6 1.0-5.5 #) [place] 052862-04-07 22:20:00 Test Item Value Reference Range Interpretation Comments Monocytes # (test code 0.1 See_Comment [Aut omated message] The = Monocytes #) system which generated this result tra nsmitted reference range : <=0.8. The reference r abdifatah was not used to int erpret this result as normal/abnormal . [facility] [id number] 20:30:00 Test Item Value Reference Range Interpretation Comments ABO/Rh (test code = ABO/Rh) A POS [facility] [id number] 20:30:00 Test Item Value Reference Range Interpretation Comments Antibody Scrn (test Negative (08/02/21 3:30 code = Antibody Scrn) PM) [facility] [id number] 20:30:00 Test Item Value Reference Range Interpretation Comments ABO/Rh (test code = ABO/Rh) A POS [facility] [employer] [id number] 20:30:00 Test Item Value Reference Range Interpretation Comments Antibody Scrn (test Negative (08/02/21 3:30 code = Antibody Scrn) PM) [facility]id[facility]UAHDGXAB0045-93-72 14:05:00 Test Item Value Reference Range Interpretation Comments Coronavirus (COVID-19) Not Detected (08/02/21 KASSY (test code = 9:05 AM) Coronavirus (COVID-19) KASSY) [facility] CenterIndtlaiVFYOLQXUDI3700-53-94 14:05:00 Test Item Value Reference Range Interpretation Comments Coronavirus (COVID-19) Not Detected (08/02/21 KASSY (test code = 9:05 AM) Coronavirus (COVID-19) KASSY) [facility] CypressJygtbhmHNGNKHEGNP8513-61-73 11:25:00 Test Item Value Reference Range Interpretation Comments D-Dimer (test code = D-Dimer) 1.25 [facility] CenterAqkiapnBHXSMQFKXT5118-85-05 11:25:00 Test Item Value Reference Range Interpretation Comments D-Dimer (test code = D-Dimer) 1.25 [facility] CenterBlmgfdpUPOUHORWJD2969-66-35 10:16:00 Test Item Value Reference Range Interpretation Comments Basophils # (test code 0.1 See_Comment [Aut omated message] The = Basophils #) system which generated this result tra nsmitted reference range : <=0.2. The reference r abdifatah was not used to int erpret this result as normal/abnormal . [facility] CenterXtsywtkPLQVPXPXEO2430-30-72 10:16:00 Test Item Value Reference Range Interpretation Comments Coronavirus (COVID-19) Not Detected KASSY (test code = (03/17/21 4:16 AM) Coronavirus (COVID-19) KASSY) [facility] [employer] [id number] 10:16:00 Test Item Value Reference Range Interpretation Comments Troponin-I (test code no gt See_Comment [Auto mated message] The = Troponin-I) system which g enerated this result transmit gill reference range : <=0.40. The reference r abdifatah was not used to interpr et this result as len l/abnormal. [facility] [employer] [id number] 10:16:00 Test Item Value Reference Range Interpretation Comments BNP (test code = BNP) 6 [facility] [employer]) [id number] 10:16:00 Test Item Value Reference Range Interpretation Comments Glucose Lvl (test code = Glucose Lvl) 94 70-99 [facility] [employer]) [id number] 10:16:00 Test Item Value Reference Range Interpretation Comments BUN (test code = BUN) 23 7-22 [facility] [employer]) [id number] 10:16:00 Test Item Value Reference Range Interpretation Comments Creatinine Lvl (test code = Creatinine 0.50 0.50-1.40 Lvl) [facility] [employer]) [id number] 10:16:00 Test Item Value Reference Range Interpretation Comments Sodium Lvl (test code = Sodium Lvl) 140 135-145 [facility] [employer]) [id number] 10:16:00 Test Item Value Reference Range Interpretation Comments Potassium Lvl (test code = Potassium 4.0 3.5-5.1 Lvl) [facility] [employer]) [id number] 10:16:00 Test Item Value Reference Range Interpretation Comments Chloride Lvl (test code = Chloride Lvl) 108 95-109 [facility] [employer]) [id number] 10:16:00 Test Item Value Reference Range Interpretation Comments CO2 (test code = CO2) 27 24-32 [facility] [employer]) [id number] 10:16:00 Test Item Value Reference Range Interpretation Comments Calcium Lvl (test code = Calcium Lvl) 11.1 8.5-10.5 [facility] [employer]) [id number] 10:16:00 Test Item Value Reference Range Interpretation Comments Total Protein (test code = Total 9.0 6.4-8.4 Protein) [place] 878481-11-20 10:16:00 Test Item Value Reference Range Interpretation Comments Albumin Lvl (test code = Albumin Lvl) 3.0 3.5-5.0 [place] 878481-11-20 10:16:00 Test Item Value Reference Range Interpretation Comments ALT (test code = ALT) 26 See_Comment [Auto mated message] The system which ge nerated this result transmit gill reference range : <=65. The reference range was not used to interpr et this result as len l/abnormal. [place] 878481-11-20 10:16:00 Test Item Value Reference Range Interpretation Comments AST (test code = AST) 35 See_Comment [Auto mated message] The system which ge nerated this result transmit gill reference range : <=37. The reference range was not used to interpr et this result as len l/abnormal. [place] 878481-11-20 10:16:00 Test Item Value Reference Range Interpretation Comments Alk Phos (test code = Alk Phos) 109 39-136 [place] 878481-11-20 10:16:00 Test Item Value Reference Range Interpretation Comments Bili Total (test code = Bili Total) 0.5 0.2-1.3 [place] 878481-11-20 10:16:00 Test Item Value Reference Range Interpretation Comments AGAP (test code = AGAP) 9.0 10.0-20.0 [place] 878481-11-20 10:16:00 Test Item Value Reference Range Interpretation Comments B/C Ratio (test code = B/C Ratio) 46 1 6-25 [place] 878481-11-20 10:16:00 Test Item Value Reference Range Interpretation Comments Globulin (test code = Globulin) 6.0 2.7-4.2 [place] 878481-11-20 10:16:00 Test Item Value Reference Range Interpretation Comments A/G Ratio (test code = A/G Ratio) 0.5 1 0.7-1.6 [place] [address]-11-20 10:16:00 Test Item Value Reference Range Interpretation Comments eGFR (test code = eGFR) 109 [facility] CypressEeafqwvDTNYFKCZUX6495-55-05 10:16:00 Test Item Value Reference Range Interpretation Comments WBC (test code = WBC) 7.6 3.7-10.4 [facility] CypressEsuoqiuEWVUUKJNGS5873-34-43 10:16:00 Test Item Value Reference Range Interpretation Comments RBC (test code = RBC) 4.19 4.20-5.40 [facility] CypressOyypoyuLQNGWZFAFR7737-27-77 10:16:00 Test Item Value Reference Range Interpretation Comments Hgb (test code = Hgb) 11.0 12.0-16.0 [facility] CypressXwxngxrWBOQUEGCYZ4038-99-94 10:16:00 Test Item Value Reference Range Interpretation Comments Hct (test code = Hct) 34.5 36.0-48.0 [facility] CypressMwgfzisTDIORHVXHL2536-65-15 10:16:00 Test Item Value Reference Range Interpretation Comments MCV (test code = MCV) 82.2 80.0-98.0 [facility] CypressDftytqnBBSLVNOVVZ5342-16-00 10:16:00 Test Item Value Reference Range Interpretation Comments MCH (test code = MCH) 26.3 pg 27.0-31.0 [facility] CypressAqzsaicJWVFWWGGIH5082-15-23 10:16:00 Test Item Value Reference Range Interpretation Comments MCHC (test code = MCHC) 32.0 32.0-36.0 [facility] CypressPzoynpeXOOAWOMUIF9991-74-11 10:16:00 Test Item Value Reference Range Interpretation Comments RDW (test code = RDW) 17.1 11.5-14.5 [facility] CypressYjogqrbSEABDCLLCE0414-55-74 10:16:00 Test Item Value Reference Range Interpretation Comments Platelet (test code = Platelet) 448 133-450 [facility] CypressCgzeojtYDOQWATTDC9775-17-87 10:16:00 Test Item Value Reference Range Interpretation Comments MPV (test code = MPV) 7.7 7.4-10.4 [facility] CypressGqqkkmkTLVTYZHTQR3780-78-92 10:16:00 Test Item Value Reference Range Interpretation Comments Segs (test code = Segs) 48.0 45.0-75.0 [facility] CypressWvpdjxxPZQYHOSAVZ1771-43-59 10:16:00 Test Item Value Reference Range Interpretation Comments Lymphocytes (test code = Lymphocytes) 38.5 20.0-40.0 [facility] CypressMtpzjrvXVZJHLYXUA1625-22-14 10:16:00 Test Item Value Reference Range Interpretation Comments Monocytes (test code = Monocytes) 9.7 2.0-12.0 [facility] CypressJrdrbnmQCPWGYNGTF9621-84-22 10:16:00 Test Item Value Reference Range Interpretation Comments Eosinophils (test code = 2.2 See_Comment [A utomated message] The Eosinophils) system which ge nerated this result tra nsmitted reference range : <=4.0. The reference r abdifatah was not used to int erpret this result as normal/abnormal . [facility] CypressTbicfqqKSBBQNWKWR5964-03-37 10:16:00 Test Item Value Reference Range Interpretation Comments Basophils (test code = 1.6 See_Comment [Aut omated message] The Basophils) system which ge nerated this result tra nsmitted reference range : <=1.0. The reference r abdifatah was not used to int erpret this result as normal/abnormal . [facility] CypressGdicuexJYFSMNHODF7233-55-76 10:16:00 Test Item Value Reference Range Interpretation Comments Neutrophils # (test code = Neutrophils 3.6 1.5-8.1 #) [facility] CypressWycnstvWQNIRXLPMN3652-50-19 10:16:00 Test Item Value Reference Range Interpretation Comments Lymphocytes # (test code = Lymphocytes 2.9 1.0-5.5 #) [facility] CypressQmqpqroGETLVQYXUI9289-48-25 10:16:00 Test Item Value Reference Range Interpretation Comments Monocytes # (test code 0.7 See_Comment [Aut omated message] The = Monocytes #) system which generated this result tra nsmitted reference range : <=0.8. The reference r abdifatah was not used to int erpret this result as normal/abnormal . [facility]LjbrtfiXDVAMOLBQW2340-95-31 10:16:00 Test Item Value Reference Range Interpretation Comments Eosinophils # (test code 0.2 See_Comment [A utomated message] The = Eosinophils #) system whic h generated this result tra nsmitted reference range : <=0.5. The reference r abdifatah was not used to int erpret this result as normal/abnormal . [id number] 10:16:00 Test Item Value Reference Range Interpretation Comments Troponin-I (test code no gt See_Comment [Auto mated message] The = Troponin-I) system which g enerated this result transmit gill reference range : <=0.40. The reference r abdifatah was not used to interpr et this result as len l/abnormal. [facility] [id number] 10:16:00 Test Item Value Reference Range Interpretation Comments BNP (test code = BNP) 6 [facility]2021-11-20 10:16:00 Test Item Value Reference Range Interpretation Comments Glucose Lvl (test code = Glucose Lvl) 94 70-99 [facility]2021-11-20 10:16:00 Test Item Value Reference Range Interpretation Comments BUN (test code = BUN) 23 7-22 [facility]2021-11-20 10:16:00 Test Item Value Reference Range Interpretation Comments Creatinine Lvl (test code = Creatinine 0.50 0.50-1.40 Lvl) [facility]2021-11-20 10:16:00 Test Item Value Reference Range Interpretation Comments Sodium Lvl (test code = Sodium Lvl) 140 135-145 [facility]2021-11-20 10:16:00 Test Item Value Reference Range Interpretation Comments Potassium Lvl (test code = Potassium 4.0 3.5-5.1 Lvl) [facility]2021-11-20 10:16:00 Test Item Value Reference Range Interpretation Comments Chloride Lvl (test code = Chloride Lvl) 108 95-109 [facility]2021-11-20 10:16:00 Test Item Value Reference Range Interpretation Comments CO2 (test code = CO2) 27 24-32 [facility]2021-11-20 10:16:00 Test Item Value Reference Range Interpretation Comments Calcium Lvl (test code = Calcium Lvl) 11.1 8.5-10.5 [facility]2021-11-20 10:16:00 Test Item Value Reference Range Interpretation Comments Total Protein (test code = Total 9.0 6.4-8.4 Protein) [place] 878481-11-20 10:16:00 Test Item Value Reference Range Interpretation Comments Albumin Lvl (test code = Albumin Lvl) 3.0 3.5-5.0 [facility]2021-11-20 10:16:00 Test Item Value Reference Range Interpretation Comments ALT (test code = ALT) 26 See_Comment [Auto mated message] The system which ge nerated this result transmit gill reference range : <=65. The reference range was not used to interpr et this result as len l/abnormal. [place] 878481-11-20 10:16:00 Test Item Value Reference Range Interpretation Comments AST (test code = AST) 35 See_Comment [Auto mated message] The system which ge nerated this result transmit gill reference range : <=37. The reference range was not used to interpr et this result as len l/abnormal. [facility]2021-11-20 10:16:00 Test Item Value Reference Range Interpretation Comments Alk Phos (test code = Alk Phos) 109 39-136 [place] 878481-11-20 10:16:00 Test Item Value Reference Range Interpretation Comments Bili Total (test code = Bili Total) 0.5 0.2-1.3 [place] 878481-11-20 10:16:00 Test Item Value Reference Range Interpretation Comments AGAP (test code = AGAP) 9.0 10.0-20.0 [place] 878481-11-20 10:16:00 Test Item Value Reference Range Interpretation Comments B/C Ratio (test code = B/C Ratio) 46 1 6-25 [place] 878481-11-20 10:16:00 Test Item Value Reference Range Interpretation Comments Globulin (test code = Globulin) 6.0 2.7-4.2 [place] 878481-11-20 10:16:00 Test Item Value Reference Range Interpretation Comments A/G Ratio (test code = A/G Ratio) 0.5 1 0.7-1.6 [place] 878481-11-20 10:16:00 Test Item Value Reference Range Interpretation Comments eGFR (test code = eGFR) 109 [facility]ressUrnwjsiSJCAKUVAYT3688-42-43 10:16:00 Test Item Value Reference Range Interpretation Comments WBC (test code = WBC) 7.6 3.7-10.4 [facility] CypressWcjdddgDBTTOWCJQX0806-89-21 10:16:00 Test Item Value Reference Range Interpretation Comments RBC (test code = RBC) 4.19 4.20-5.40 [facility] CypressAsrqoazQTBXZPQTSD9339-35-67 10:16:00 Test Item Value Reference Range Interpretation Comments Hgb (test code = Hgb) 11.0 12.0-16.0 [place] 052861-11-20 10:16:00 Test Item Value Reference Range Interpretation Comments Hct (test code = Hct) 34.5 36.0-48.0 [facility] CypressSxbmflvOPYILPXTSM6095-81-40 10:16:00 Test Item Value Reference Range Interpretation Comments MCV (test code = MCV) 82.2 80.0-98.0 [place] 052861-11-20 10:16:00 Test Item Value Reference Range Interpretation Comments MCH (test code = MCH) 26.3 pg 27.0-31.0 [facility] CypressUuaxbdjZVVGTTFYZC4567-57-87 10:16:00 Test Item Value Reference Range Interpretation Comments MCHC (test code = MCHC) 32.0 32.0-36.0 [facility] CypressCcgoqtbFEZSCGSAZF3544-22-53 10:16:00 Test Item Value Reference Range Interpretation Comments RDW (test code = RDW) 17.1 11.5-14.5 [place] 052861-11-20 10:16:00 Test Item Value Reference Range Interpretation Comments Platelet (test code = Platelet) 448 133-450 [facility] CypressZsxxmjrATVQLFBUHS5958-04-02 10:16:00 Test Item Value Reference Range Interpretation Comments MPV (test code = MPV) 7.7 7.4-10.4 [facility] CypressCghqsbiCQKGUWBJPL9040-58-73 10:16:00 Test Item Value Reference Range Interpretation Comments Segs (test code = Segs) 48.0 45.0-75.0 [facility] CypressFrloqueMFAERKKFQI5907-30-97 10:16:00 Test Item Value Reference Range Interpretation Comments Lymphocytes (test code = Lymphocytes) 38.5 20.0-40.0 [facility] CypressJptwsebLNHCIZPROT8716-03-76 10:16:00 Test Item Value Reference Range Interpretation Comments Monocytes (test code = Monocytes) 9.7 2.0-12.0 [place] 052861-11-20 10:16:00 Test Item Value Reference Range Interpretation Comments Eosinophils (test code = 2.2 See_Comment [A utomated message] The Eosinophils) system which ge nerated this result tra nsmitted reference range : <=4.0. The reference r abdifatah was not used to int erpret this result as normal/abnormal . [facility] CypressLcyjevbKZPIOTNWYB1926-70-05 10:16:00 Test Item Value Reference Range Interpretation Comments Basophils (test code = 1.6 See_Comment [Aut omated message] The Basophils) system which ge nerated this result tra nsmitted reference range : <=1.0. The reference r abdifatah was not used to int erpret this result as normal/abnormal . [facility] CypressTxsjjbjKBTSDAXZZI6001-36-19 10:16:00 Test Item Value Reference Range Interpretation Comments Neutrophils # (test code = Neutrophils 3.6 1.5-8.1 #) [facility] CypressUxtczywHSZNRLMXYM1891-85-89 10:16:00 Test Item Value Reference Range Interpretation Comments Lymphocytes # (test code = Lymphocytes 2.9 1.0-5.5 #) [facility] CypressRmsmxeyHGYUULUCLW2085-46-28 10:16:00 Test Item Value Reference Range Interpretation Comments Monocytes # (test code 0.7 See_Comment [Aut omated message] The = Monocytes #) system which generated this result tra nsmitted reference range : <=0.8. The reference r abdifatah was not used to int erpret this result as normal/abnormal . [facility] CypressGivgimiZKWVMBNNUM8886-92-20 10:16:00 Test Item Value Reference Range Interpretation Comments Eosinophils # (test code 0.2 See_Comment [A utomated message] The = Eosinophils #) system whic h generated this result tra nsmitted reference range : <=0.5. The reference r abdifatah was not used to int erpret this result as normal/abnormal . [facility] CypressXuyqzjxFZSCPXYCHM4883-17-26 10:16:00 Test Item Value Reference Range Interpretation Comments Basophils # (test code 0.1 See_Comment [Aut omated message] The = Basophils #) system which generated this result tra nsmitted reference range : <=0.2. The reference r abdifatah was not used to int erpret this result as normal/abnormal . [facility] CenterTejrzkdMAAKAZFGSN1015-02-44 10:16:00 Test Item Value Reference Range Interpretation Comments Coronavirus (COVID-19) Not Detected KASSY (test code = (03/17/21 4:16 AM) Coronavirus (COVID-19) KASSY) [facility] LSVDJ1136[facility] 10:55:00 Test Item Value Reference Range Interpretation Comments Glucose Lvl (test code = Glucose Lvl) 106 70-99 [facility]annAT[facility]ITALGMAXP1247-94-21 10:55:00 Test Item Value Reference Range Interpretation Comments BUN (test code = BUN) 17 7-22 [place] 878481-11-18 10:55:00 Test Item Value Reference Range Interpretation Comments Creatinine Lvl (test code = Creatinine 0.34 0.50-1.40 Lvl) [place] 878481-11-18 10:55:00 Test Item Value Reference Range Interpretation Comments Sodium Lvl (test code = Sodium Lvl) 141 135-145 [place] 878481-11-18 10:55:00 Test Item Value Reference Range Interpretation Comments Potassium Lvl (test code = Potassium 4.1 3.5-5.1 Lvl) [place] 878481-11-18 10:55:00 Test Item Value Reference Range Interpretation Comments Chloride Lvl (test code = Chloride Lvl) 106 95-109 [place] 878481-11-18 10:55:00 Test Item Value Reference Range Interpretation Comments CO2 (test code = CO2) 28 24-32 [place] 878481-11-18 10:55:00 Test Item Value Reference Range Interpretation Comments Calcium Lvl (test code = Calcium Lvl) 10.7 8.5-10.5 [place] 878481-11-18 10:55:00 Test Item Value Reference Range Interpretation Comments AGAP (test code = AGAP) 11.1 10.0-20.0 [place] 878481-11-18 10:55:00 Test Item Value Reference Range Interpretation Comments eGFR (test code = eGFR) 123 [place] 052861-11-18 10:55:00 Test Item Value Reference Range Interpretation Comments WBC (test code = WBC) 6.6 3.7-10.4 [place] [address]-11-18 10:55:00 Test Item Value Reference Range Interpretation Comments RBC (test code = RBC) 3.83 4.20-5.40 [place] [address]-11-18 10:55:00 Test Item Value Reference Range Interpretation Comments Hgb (test code = Hgb) 10.2 12.0-16.0 [place] [address]-11-18 10:55:00 Test Item Value Reference Range Interpretation Comments Hct (test code = Hct) 31.4 36.0-48.0 [place] [address]-11-18 10:55:00 Test Item Value Reference Range Interpretation Comments MCV (test code = MCV) 81.8 80.0-98.0 [place] [address]-11-18 10:55:00 Test Item Value Reference Range Interpretation Comments MCH (test code = MCH) 26.7 pg 27.0-31.0 [place] 052861-11-18 10:55:00 Test Item Value Reference Range Interpretation Comments MCHC (test code = MCHC) 32.6 32.0-36.0 [place] 052861-11-18 10:55:00 Test Item Value Reference Range Interpretation Comments RDW (test code = RDW) 16.7 11.5-14.5 [place] [address]-11-18 10:55:00 Test Item Value Reference Range Interpretation Comments Platelet (test code = Platelet) 400 133-450 [place] 052861-11-18 10:55:00 Test Item Value Reference Range Interpretation Comments MPV (test code = MPV) 7.3 7.4-10.4 [place] [address]-11-18 10:55:00 Test Item Value Reference Range Interpretation Comments Segs (test code = Segs) 60.5 45.0-75.0 [place] [address]-11-18 10:55:00 Test Item Value Reference Range Interpretation Comments Lymphocytes (test code = Lymphocytes) 24.4 20.0-40.0 [place] 052861-11-18 10:55:00 Test Item Value Reference Range Interpretation Comments Monocytes (test code = Monocytes) 13.2 2.0-12.0 [place] [address]-11-18 10:55:00 Test Item Value Reference Range Interpretation Comments Eosinophils (test code = 1.4 See_Comment [A utomated message] The Eosinophils) system which ge nerated this result tra nsmitted reference range : <=4.0. The reference r abdifatah was not used to int erpret this result as normal/abnormal . [place] [address]-11-18 10:55:00 Test Item Value Reference Range Interpretation Comments Basophils (test code = 0.5 See_Comment [Aut omated message] The Basophils) system which ge nerated this result tra nsmitted reference range : <=1.0. The reference r abdifatah was not used to int erpret this result as normal/abnormal . [place] 052861-11-18 10:55:00 Test Item Value Reference Range Interpretation Comments Neutrophils # (test code = Neutrophils 4.0 1.5-8.1 #) [place] 052861-11-18 10:55:00 Test Item Value Reference Range Interpretation Comments Lymphocytes # (test code = Lymphocytes 1.6 1.0-5.5 #) [place] 052861-11-18 10:55:00 Test Item Value Reference Range Interpretation Comments Monocytes # (test code 0.9 See_Comment [Aut omated message] The = Monocytes #) system which generated this result tra nsmitted reference range : <=0.8. The reference r abdifatah was not used to int erpret this result as normal/abnormal . [place] 052861-11-18 10:55:00 Test Item Value Reference Range Interpretation Comments Eosinophils # (test code 0.1 See_Comment [A utomated message] The = Eosinophils #) system whic h generated this result tra nsmitted reference range : <=0.5. The reference r abdifatah was not used to int erpret this result as normal/abnormal . [facility]2021-11-18 10:55:00 Test Item Value Reference Range Interpretation Comments Glucose Lvl (test code = Glucose Lvl) 106 70-99 [place] 878481-11-18 10:55:00 Test Item Value Reference Range Interpretation Comments BUN (test code = BUN) 17 7-22 [place] 878481-11-18 10:55:00 Test Item Value Reference Range Interpretation Comments Creatinine Lvl (test code = Creatinine 0.34 0.50-1.40 Lvl) [place] 878481-11-18 10:55:00 Test Item Value Reference Range Interpretation Comments Sodium Lvl (test code = Sodium Lvl) 141 135-145 [place] 878481-11-18 10:55:00 Test Item Value Reference Range Interpretation Comments Potassium Lvl (test code = Potassium 4.1 3.5-5.1 Lvl) [place] 878481-11-18 10:55:00 Test Item Value Reference Range Interpretation Comments Chloride Lvl (test code = Chloride Lvl) 106 95-109 [place] 878481-11-18 10:55:00 Test Item Value Reference Range Interpretation Comments CO2 (test code = CO2) 28 24-32 [place] 878481-11-18 10:55:00 Test Item Value Reference Range Interpretation Comments Calcium Lvl (test code = Calcium Lvl) 10.7 8.5-10.5 [place] 878481-11-18 10:55:00 Test Item Value Reference Range Interpretation Comments AGAP (test code = AGAP) 11.1 10.0-20.0 [place] 878481-11-18 10:55:00 Test Item Value Reference Range Interpretation Comments eGFR (test code = eGFR) 123 [facility] CypressNgssmiuCXMJYEZOGE2946-45-79 10:55:00 Test Item Value Reference Range Interpretation Comments WBC (test code = WBC) 6.6 3.7-10.4 [place] 052861-11-18 10:55:00 Test Item Value Reference Range Interpretation Comments RBC (test code = RBC) 3.83 4.20-5.40 [place] 052861-11-18 10:55:00 Test Item Value Reference Range Interpretation Comments Hgb (test code = Hgb) 10.2 12.0-16.0 [facility] CypressFavwjhbMMOASYDIRK4694-68-74 10:55:00 Test Item Value Reference Range Interpretation Comments Hct (test code = Hct) 31.4 36.0-48.0 [place] 052861-11-18 10:55:00 Test Item Value Reference Range Interpretation Comments MCV (test code = MCV) 81.8 80.0-98.0 [place] 052861-11-18 10:55:00 Test Item Value Reference Range Interpretation Comments MCH (test code = MCH) 26.7 pg 27.0-31.0 [place] [address]-11-18 10:55:00 Test Item Value Reference Range Interpretation Comments MCHC (test code = MCHC) 32.6 32.0-36.0 [place] [address]-11-18 10:55:00 Test Item Value Reference Range Interpretation Comments RDW (test code = RDW) 16.7 11.5-14.5 [place] 052861-11-18 10:55:00 Test Item Value Reference Range Interpretation Comments Platelet (test code = Platelet) 400 133-450 [place] 052861-11-18 10:55:00 Test Item Value Reference Range Interpretation Comments MPV (test code = MPV) 7.3 7.4-10.4 [place] 052861-11-18 10:55:00 Test Item Value Reference Range Interpretation Comments Segs (test code = Segs) 60.5 45.0-75.0 [place] 052861-11-18 10:55:00 Test Item Value Reference Range Interpretation Comments Lymphocytes (test code = Lymphocytes) 24.4 20.0-40.0 [place] 052861-11-18 10:55:00 Test Item Value Reference Range Interpretation Comments Monocytes (test code = Monocytes) 13.2 2.0-12.0 [place] [address]-11-18 10:55:00 Test Item Value Reference Range Interpretation Comments Eosinophils (test code = 1.4 See_Comment [A utomated message] The Eosinophils) system which ge nerated this result tra nsmitted reference range : <=4.0. The reference r abdifatah was not used to int erpret this result as normal/abnormal . [place] 052861-11-18 10:55:00 Test Item Value Reference Range Interpretation Comments Basophils (test code = 0.5 See_Comment [Aut omated message] The Basophils) system which ge nerated this result tra nsmitted reference range : <=1.0. The reference r abdifatah was not used to int erpret this result as normal/abnormal . [place] 052861-11-18 10:55:00 Test Item Value Reference Range Interpretation Comments Neutrophils # (test code = Neutrophils 4.0 1.5-8.1 #) [place] 052861-11-18 10:55:00 Test Item Value Reference Range Interpretation Comments Lymphocytes # (test code = Lymphocytes 1.6 1.0-5.5 #) [place] 052861-11-18 10:55:00 Test Item Value Reference Range Interpretation Comments Monocytes # (test code 0.9 See_Comment [Aut omated message] The = Monocytes #) system which generated this result tra nsmitted reference range : <=0.8. The reference r abdifatah was not used to int erpret this result as normal/abnormal . [place] [address]-11-18 10:55:00 Test Item Value Reference Range Interpretation Comments Eosinophils # (test code 0.1 See_Comment [A utomated message] The = Eosinophils #) system [employer] h generated this result tra nsmitted reference range : <=0.5. The reference r abdifatah was not used to int erpret this result as normal/abnormal . [place] [address]-11-17 08:13:00 Test Item Value Reference Range Interpretation Comments Glucose Lvl (test code = Glucose Lvl) 118 70-[address]11-17 08:13:00 Test Item Value Reference Range Interpretation Comments BUN (test code = BUN) 20 7-22 [place] [address]-11-17 08:13:00 Test Item Value Reference Range Interpretation Comments Creatinine Lvl (test code = Creatinine 0.48 0.50-1.40 Lvl) [place] [address]-11-17 08:13:00 Test Item Value Reference Range Interpretation Comments Sodium Lvl (test code = Sodium Lvl) 140 135-145 [address]11-17 08:13:00 Test Item Value Reference Range Interpretation Comments Potassium Lvl (test code = Potassium 4.3 3.5-5.1 Lvl) [place] [address]-11-17 08:13:00 Test Item Value Reference Range Interpretation Comments Chloride Lvl (test code = Chloride Lvl) 105 95-109 [place] [address]-11-17 08:13:00 Test Item Value Reference Range Interpretation Comments CO2 (test code = CO2) 28 24-32 [place] [address]-11-17 08:13:00 Test Item Value Reference Range Interpretation Comments Calcium Lvl (test code = Calcium Lvl) 10.6 8.5-10.5 [place] [address]-11-17 08:13:00 Test Item Value Reference Range Interpretation Comments AGAP (test code = AGAP) 11.3 10.0-20.0 [address]11-17 08:13:00 Test Item Value Reference Range Interpretation Comments eGFR (test code = eGFR) [address]11-17 08:13:00 Test Item Value Reference Range Interpretation Comments WBC (test code = WBC) 7.2 3.7-10.4 [facility]ressIjgmnyqUJJDYNCQKB6154-29-91 08:13:00 Test Item Value Reference Range Interpretation Comments RBC (test code = RBC) 4.10 4.20-5.40 [facility] CypressHzaxsauKVMZLPXZGP1064 08:13:00 Test Item Value Reference Range Interpretation Comments Hgb (test code = Hgb) 10.9 12.0-16.0 [facility] CypressBvmfhyjCLQOETNWDS3489-19-80 08:13:00 Test Item Value Reference Range Interpretation Comments Hct (test code = Hct) 33.9 36.0-48.0 [facility] CypressRrsbnivGFTRRUWJNI5698-64-96 08:13:00 Test Item Value Reference Range Interpretation Comments MCV (test code = MCV) 82.5 80.0-98.0 [facility] CypressHajmwtkBYIRMKEJAB6440-11-81 08:13:00 Test Item Value Reference Range Interpretation Comments MCH (test code = MCH) 26.5 pg 27.0-31.0 [facility] CypressJxtyzveJBFNDELDYN2880-48-68 08:13:00 Test Item Value Reference Range Interpretation Comments MCHC (test code = MCHC) 32.1 32.0-36.0 [facility] CypressAriqggmRVSTAGIEWY3765-90-14 08:13:00 Test Item Value Reference Range Interpretation Comments RDW (test code = RDW) 17.2 11.5-14.5 [facility] CypressQclohbzGUCXUJMTAO2865-49-29 08:13:00 Test Item Value Reference Range Interpretation Comments Platelet (test code = Platelet) 445 133-450 [facility] CypressLgbceiwTJKZVSDHZG5778-67-28 08:13:00 Test Item Value Reference Range Interpretation Comments MPV (test code = MPV) 7.4 7.4-10.4 [place] 052861-11-17 08:13:00 Test Item Value Reference Range Interpretation Comments Segs (test code = Segs) 70.6 45.0-75.0 [facility] CypressWpuhtfxGHFFWGPWDG9088-55-77 08:13:00 Test Item Value Reference Range Interpretation Comments Lymphocytes (test code = Lymphocytes) 16.7 20.0-40.0 [place] 052861-11-17 08:13:00 Test Item Value Reference Range Interpretation Comments Monocytes (test code = Monocytes) 11.8 2.0-12.0 [place] [address]-11-17 08:13:00 Test Item Value Reference Range Interpretation Comments Eosinophils (test code = 0.6 See_Comment [A utomated message] The Eosinophils) system which ge nerated this result tra nsmitted reference range : <=4.0. The reference r abdifatah was not used to int erpret this result as normal/abnormal . [place] [address]-11-17 08:13:00 Test Item Value Reference Range Interpretation Comments Basophils (test code = 0.3 See_Comment [Aut omated message] The Basophils) system which ge nerated this result tra nsmitted reference range : <=1.0. The reference r abdifatah was not used to int erpret this result as normal/abnormal . [place] [address]-11-17 08:13:00 Test Item Value Reference Range Interpretation Comments Neutrophils # (test code = Neutrophils 5.1 1.5-8.1 #) [address]11-17 08:13:00 Test Item Value Reference Range Interpretation Comments Lymphocytes # (test code = Lymphocytes 1.2 1.0-5.5 #) [place] [address]-11-17 08:13:00 Test Item Value Reference Range Interpretation Comments Monocytes # (test code 0.8 See_Comment [Aut omated message] The = Monocytes #) system which generated this result tra nsmitted reference range : <=0.8. The reference r abdifatah was not used to int erpret this result as normal/abnormal . [place] 878481-11-17 08:13:00 Test Item Value Reference Range Interpretation Comments Glucose Lvl (test code = Glucose Lvl) 118 70-99 [place] 878481-11-17 08:13:00 Test Item Value Reference Range Interpretation Comments BUN (test code = BUN) 20 7-22 [place] 878481-11-17 08:13:00 Test Item Value Reference Range Interpretation Comments Creatinine Lvl (test code = Creatinine 0.48 0.50-1.40 Lvl) [place] 878481-11-17 08:13:00 Test Item Value Reference Range Interpretation Comments Sodium Lvl (test code = Sodium Lvl) 140 135-145 [address]11-17 08:13:00 Test Item Value Reference Range Interpretation Comments Potassium Lvl (test code = Potassium 4.3 3.5-5.1 Lvl) [address]11-17 08:13:00 Test Item Value Reference Range Interpretation Comments Chloride Lvl (test code = Chloride Lvl) 105 95-109 [address]11-17 08:13:00 Test Item Value Reference Range Interpretation Comments CO2 (test code = CO2) 28 24-32 [address]11-17 08:13:00 Test Item Value Reference Range Interpretation Comments Calcium Lvl (test code = Calcium Lvl) 10.6 8.5-10.[address]11-17 08:13:00 Test Item Value Reference Range Interpretation Comments AGAP (test code = AGAP) 11.3 10.0-20.[address]11-17 08:13:00 Test Item Value Reference Range Interpretation Comments eGFR (test code = eGFR) [address]11-17 08:13:00 Test Item Value Reference Range Interpretation Comments WBC (test code = WBC) 7.2 3.7-10.[address]11-17 08:13:00 Test Item Value Reference Range Interpretation Comments RBC (test code = RBC) 4.10 4.20-5.[address]11-17 08:13:00 Test Item Value Reference Range Interpretation Comments Hgb (test code = Hgb) 10.9 12.0-16.[address]11-17 08:13:00 Test Item Value Reference Range Interpretation Comments Hct (test code = Hct) 33.9 36.0-48.[address]11-17 08:13:00 Test Item Value Reference Range Interpretation Comments MCV (test code = MCV) 82.5 80.0-98.0 [place] [address]-11-17 08:13:00 Test Item Value Reference Range Interpretation Comments MCH (test code = MCH) 26.5 pg 27.0-31.[address]11-17 08:13:00 Test Item Value Reference Range Interpretation Comments MCHC (test code = MCHC) 32.1 32.0-36.0 [facility]zuwtzaQFUTVXPMOS7901-31-74 08:13:00 Test Item Value Reference Range Interpretation Comments RDW (test code = RDW) 17.2 11.5-14.5 [place] 052861-11-17 08:13:00 Test Item Value Reference Range Interpretation Comments Platelet (test code = Platelet) 445 133-450 [facility] CypressOagebdhXXKBTYCBZL8270-19-85 08:13:00 Test Item Value Reference Range Interpretation Comments MPV (test code = MPV) 7.4 7.4-10.4 [place] 052861-11-17 08:13:00 Test Item Value Reference Range Interpretation Comments Segs (test code = Segs) 70.6 45.0-75.0 [place] 052861-11-17 08:13:00 Test Item Value Reference Range Interpretation Comments Lymphocytes (test code = Lymphocytes) 16.7 20.0-40.0 [place] 052861-11-17 08:13:00 Test Item Value Reference Range Interpretation Comments Monocytes (test code = Monocytes) 11.8 2.0-12.0 [facility] CypressEynyhlcVGNGRNBVXQ9934-51-30 08:13:00 Test Item Value Reference Range Interpretation Comments Eosinophils (test code = 0.6 See_Comment [A utomated message] The Eosinophils) system which ge nerated this result tra nsmitted reference range : <=4.0. The reference r abdifatah was not used to int erpret this result as normal/abnormal . [facility] CypressKifpghwKVIUMIDNYB1771-12-77 08:13:00 Test Item Value Reference Range Interpretation Comments Basophils (test code = 0.3 See_Comment [Aut omated message] The Basophils) system which ge nerated this result tra nsmitted reference range : <=1.0. The reference r abdifatah was not used to int erpret this result as normal/abnormal . [place] 052861-11-17 08:13:00 Test Item Value Reference Range Interpretation Comments Neutrophils # (test code = Neutrophils 5.1 1.5-8.1 #) [place] 052861-11-17 08:13:00 Test Item Value Reference Range Interpretation Comments Lymphocytes # (test code = Lymphocytes 1.2 1.0-5.5 #) [facility]53[facility] 08:13:00 Test Item Value Reference Range Interpretation Comments Monocytes # (test code 0.8 See_Comment [Aut omated message] The = Monocytes #) system which generated this result tra nsmitted reference range : <=0.8. The reference r abdifatah was not used to int erpret this result as normal/abnormal . [facility] [id number] 06:51:00 Test Item Value Reference Range Interpretation Comments ABO/Rh (test code = ABO/Rh) A POS [facility] EVPEUJO4916-79-02 06:51:00 Test Item Value Reference Range Interpretation Comments Antibody Scrn (test Negative (03/13/21 code = Antibody Scrn) 12:51 AM) [place] 878481-11-16 06:51:00 Test Item Value Reference Range Interpretation Comments Glucose Lvl (test code = Glucose Lvl) 67 70-99 [facility]2021-11-16 06:51:00 Test Item Value Reference Range Interpretation Comments BUN (test code = BUN) 18 7-22 [facility]2021-11-16 06:51:00 Test Item Value Reference Range Interpretation Comments Creatinine Lvl (test code = Creatinine 0.49 0.50-1.40 Lvl) [facility]2021-11-16 06:51:00 Test Item Value Reference Range Interpretation Comments Sodium Lvl (test code = Sodium Lvl) 141 135-145 [facility]2021-11-16 06:51:00 Test Item Value Reference Range Interpretation Comments Potassium Lvl (test code = Potassium 4.1 3.5-5.1 Lvl) [facility]2021-11-16 06:51:00 Test Item Value Reference Range Interpretation Comments Chloride Lvl (test code = Chloride Lvl) 106 95-109 [place] 878481-11-16 06:51:00 Test Item Value Reference Range Interpretation Comments CO2 (test code = CO2) 26 24-32 [facility]2021-11-16 06:51:00 Test Item Value Reference Range Interpretation Comments AGAP (test code = AGAP) 13.1 10.0-20.0 [facility]2021-11-16 06:51:00 Test Item Value Reference Range Interpretation Comments Calcium Lvl (test code = Calcium Lvl) 10.5 8.5-10.5 [facility]2021-11-16 06:51:00 Test Item Value Reference Range Interpretation Comments eGFR (test code = eGFR) 109 [facility] CypressRzmdmvvIMPDCOAJFL8904-14-18 06:51:00 Test Item Value Reference Range Interpretation Comments RBC Morph (test code = Normal (03/13/21 12:51 RBC Morph) AM) [place] 052861-11-16 06:51:00 Test Item Value Reference Range Interpretation Comments Plt Morph (test code = Normal (03/13/21 12:51 Plt Morph) AM) [place] 052861-11-16 06:51:00 Test Item Value Reference Range Interpretation Comments Segs (test code = Segs) 51.3 45.0-75.0 [place] 052861-11-16 06:51:00 Test Item Value Reference Range Interpretation Comments Lymphocytes (test code = Lymphocytes) 36.0 20.0-40.0 [place] 052861-11-16 06:51:00 Test Item Value Reference Range Interpretation Comments Monocytes (test code = Monocytes) 10.1 2.0-12.0 [place] 052861-11-16 06:51:00 Test Item Value Reference Range Interpretation Comments Eosinophils (test code = 1.6 See_Comment [A utomated message] The Eosinophils) system which ge nerated this result tra nsmitted reference range : <=4.0. The reference r abdifatah was not used to int erpret this result as normal/abnormal . [facility] CypressRzjxhppVFXTCZPINL6778-94-80 06:51:00 Test Item Value Reference Range Interpretation Comments Basophils (test code = 1.0 See_Comment [Aut omated message] The Basophils) system which ge nerated this result tra nsmitted reference range : <=1.0. The reference r abdifatah was not used to int erpret this result as normal/abnormal . [place] 052861-11-16 06:51:00 Test Item Value Reference Range Interpretation Comments Neutrophils # (test code = Neutrophils 3.0 1.5-8.1 #) [place] 052861-11-16 06:51:00 Test Item Value Reference Range Interpretation Comments Lymphocytes # (test code = Lymphocytes 2.1 1.0-5.5 #) [facility] CypressBujjxpoRCNCLFWCEO4239-94-14 06:51:00 Test Item Value Reference Range Interpretation Comments Monocytes # (test code 0.6 See_Comment [Aut omated message] The = Monocytes #) system which generated this result tra nsmitted reference range : <=0.8. The reference r abdifatah was not used to int erpret this result as normal/abnormal . [facility] CypressJmhzvkfVEWMIFNXSV0629-67-13 06:51:00 Test Item Value Reference Range Interpretation Comments Eosinophils # (test code 0.1 See_Comment [A utomated message] The = Eosinophils #) system whic h generated this result tra nsmitted reference range : <=0.5. The reference r abdifatah was not used to int erpret this result as normal/abnormal . [facility] CypressHklykdnVNDNZTSITQ3631-17-32 06:51:00 Test Item Value Reference Range Interpretation Comments Basophils # (test code 0.1 See_Comment [Aut omated message] The = Basophils #) system which generated this result tra nsmitted reference range : <=0.2. The reference r abdifatah was not used to int erpret this result as normal/abnormal . [facility] CypressZhmqrwyGUKFYQLLBG7322-48-40 06:51:00 Test Item Value Reference Range Interpretation Comments WBC (test code = WBC) 5.9 3.7-10.4 [facility] CypressOvcslskSOREZCMWTO0078-30-23 06:51:00 Test Item Value Reference Range Interpretation Comments RBC (test code = RBC) 4.12 4.20-5.40 [facility] CypressIfmmtmcUWPSFAMCFS1947-28-19 06:51:00 Test Item Value Reference Range Interpretation Comments Hgb (test code = Hgb) 11.0 12.0-16.0 [place] 052861-11-16 06:51:00 Test Item Value Reference Range Interpretation Comments Hct (test code = Hct) 33.9 36.0-48.0 [place] 052861-11-16 06:51:00 Test Item Value Reference Range Interpretation Comments MCV (test code = MCV) 82.1 80.0-98.0 [place] 052861-11-16 06:51:00 Test Item Value Reference Range Interpretation Comments MCH (test code = MCH) 26.6 pg 27.0-31.0 [facility]RzdwvhdUAIKTTKSVF2010-35-90 06:51:00 Test Item Value Reference Range Interpretation Comments MCHC (test code = MCHC) 32.4 32.0-36.0 [facility]93[facility] 06:51:00 Test Item Value Reference Range Interpretation Comments RDW (test code = RDW) 16.9 11.5-14.5 [facility]ZjrhvzgCZARXLXSOQ2620-89-37 06:51:00 Test Item Value Reference Range Interpretation Comments Platelet (test code = Platelet) 463 133-450 [facility] CenterVvuadnmHVWSEXYBLO6282-69-68 06:51:00 Test Item Value Reference Range Interpretation Comments MPV (test code = MPV) 8.0 7.4-10.4 [facility] BPODYOJ6310-08-95 06:51:00 Test Item Value Reference Range Interpretation Comments ABO/Rh (test code = ABO/Rh) A POS [facility] FADMMYG5184-06-22 06:51:00 Test Item Value Reference Range Interpretation Comments Antibody Scrn (test Negative (03/13/21 code = Antibody Scrn) 12:51 AM) [facility] [id number] 06:51:00 Test Item Value Reference Range Interpretation Comments Glucose Lvl (test code = Glucose Lvl) 67 70-99 [facility]) [id number] 06:51:00 Test Item Value Reference Range Interpretation Comments BUN (test code = BUN) 18 7-22 [facility] [id number] 06:51:00 Test Item Value Reference Range Interpretation Comments Creatinine Lvl (test code = Creatinine 0.49 0.50-1.40 Lvl) [facility] ([facility]) [id number] 06:51:00 Test Item Value Reference Range Interpretation Comments Sodium Lvl (test code = Sodium Lvl) 141 135-145 [facility]) [id number] 06:51:00 Test Item Value Reference Range Interpretation Comments Potassium Lvl (test code = Potassium 4.1 3.5-5.1 Lvl) [facility]) [id number] 06:51:00 Test Item Value Reference Range Interpretation Comments Chloride Lvl (test code = Chloride Lvl) 106 95-109 [facility] ([facility]) [id number] 06:51:00 Test Item Value Reference Range Interpretation Comments CO2 (test code = CO2) 26 24-32 [place] 878481-11-16 06:51:00 Test Item Value Reference Range Interpretation Comments AGAP (test code = AGAP) 13.1 10.0-20.0 [place] [address]-11-16 06:51:00 Test Item Value Reference Range Interpretation Comments Calcium Lvl (test code = Calcium Lvl) 10.5 8.5-10.5 [place] 878481-11-16 06:51:00 Test Item Value Reference Range Interpretation Comments eGFR (test code = eGFR) 109 [place] 052861-11-16 06:51:00 Test Item Value Reference Range Interpretation Comments RBC Morph (test code = Normal (03/13/21 12:51 RBC Morph) AM) [place] [address]-11-16 06:51:00 Test Item Value Reference Range Interpretation Comments Plt Morph (test code = Normal (03/13/21 12:51 Plt Morph) AM) [place] 052861-11-16 06:51:00 Test Item Value Reference Range Interpretation Comments Segs (test code = Segs) 51.3 45.0-75.0 [place] [address]-11-16 06:51:00 Test Item Value Reference Range Interpretation Comments Lymphocytes (test code = Lymphocytes) 36.0 20.0-40.0 [place] [address]-11-16 06:51:00 Test Item Value Reference Range Interpretation Comments Monocytes (test code = Monocytes) 10.1 2.0-12.0 [place] [address]-11-16 06:51:00 Test Item Value Reference Range Interpretation Comments Eosinophils (test code = 1.6 See_Comment [A utomated message] The Eosinophils) system which ge nerated this result tra nsmitted reference range : <=4.0. The reference r abdifatah was not used to int erpret this result as normal/abnormal . [place] [address]-11-16 06:51:00 Test Item Value Reference Range Interpretation Comments Basophils (test code = 1.0 See_Comment [Aut omated message] The Basophils) system which ge nerated this result tra nsmitted reference range : <=1.0. The reference r abdifatah was not used to int erpret this result as normal/abnormal . [facility]ressJrlndpiUTGHCVLZKR1586-28-40 06:51:00 Test Item Value Reference Range Interpretation Comments Neutrophils # (test code = Neutrophils 3.0 1.5-8.1 #) [facility] CypressYycspbtADLABFIPXH4519-76-05 06:51:00 Test Item Value Reference Range Interpretation Comments Lymphocytes # (test code = Lymphocytes 2.1 1.0-5.5 #) [facility] CypressHhspwjvTXOFBKIDJB2665-00-25 06:51:00 Test Item Value Reference Range Interpretation Comments Monocytes # (test code 0.6 See_Comment [Aut omated message] The = Monocytes #) system which generated this result tra nsmitted reference range : <=0.8. The reference r abdifatah was not used to int erpret this result as normal/abnormal . [facility] CypressVdgklreUBPREGILDJ7473-80-86 06:51:00 Test Item Value Reference Range Interpretation Comments Eosinophils # (test code 0.1 See_Comment [A utomated message] The = Eosinophils #) system whic h generated this result tra nsmitted reference range : <=0.5. The reference r abdifatah was not used to int erpret this result as normal/abnormal . [facility] CypressSkziizfENHRTNDDNP2459-53-55 06:51:00 Test Item Value Reference Range Interpretation Comments Basophils # (test code 0.1 See_Comment [Aut omated message] The = Basophils #) system which generated this result tra nsmitted reference range : <=0.2. The reference r abdifatah was not used to int erpret this result as normal/abnormal . [facility] CypressWwjvtbbQIEIIGLAUF9775-17-07 06:51:00 Test Item Value Reference Range Interpretation Comments WBC (test code = WBC) 5.9 3.7-10.4 [facility] CypressWhihaqyALKSPWNTFZ9350-25-34 06:51:00 Test Item Value Reference Range Interpretation Comments RBC (test code = RBC) 4.12 4.20-5.40 [place] 052861-11-16 06:51:00 Test Item Value Reference Range Interpretation Comments Hgb (test code = Hgb) 11.0 12.0-16.0 [place] 052861-11-16 06:51:00 Test Item Value Reference Range Interpretation Comments Hct (test code = Hct) 33.9 36.0-48.0 [facility] CypressMipkwzvDORRFSDZNN4087-88-17 06:51:00 Test Item Value Reference Range Interpretation Comments MCV (test code = MCV) 82.1 80.0-98.0 [facility] CypressBllawysXYMVAZREML1036-98-26 06:51:00 Test Item Value Reference Range Interpretation Comments MCH (test code = MCH) 26.6 pg 27.0-31.0 [facility] CypressIkxrwhnLTGJHMOSII6913-46-22 06:51:00 Test Item Value Reference Range Interpretation Comments MCHC (test code = MCHC) 32.4 32.0-36.0 [place] 052861-11-16 06:51:00 Test Item Value Reference Range Interpretation Comments RDW (test code = RDW) 16.9 11.5-14.5 [place] 052861-11-16 06:51:00 Test Item Value Reference Range Interpretation Comments Platelet (test code = Platelet) 463 133-450 [facility] CypressCpymqmyAFJXLAGXDD0876-71-28 06:51:00 Test Item Value Reference Range Interpretation Comments MPV (test code = MPV) 8.0 7.4-10.4 [facility] CypressEvczvplFUDZZSRYZS8256-68-06 12:10:00 Test Item Value Reference Range Interpretation Comments Eosinophils # (test code 0.1 See_Comment [A utomated message] The = Eosinophils #) system [employer] generated this result tra nsmitted reference range : <=0.5. The reference r abdifatah was not used to int erpret this result as normal/abnormal . [facility] CypressEyysdjqHASNWWQKWF5467-47-47 12:10:00 Test Item Value Reference Range Interpretation Comments Eosinophils # (test code 0.1 See_Comment [A utomated message] The = Eosinophils #) system [employer] generated this result tra nsmitted reference range : <=0.5. The reference r abdifatah was not used to int erpret this result as normal/abnormal . [facility] CypressRgiluhsDZYWUOFDQM6405-84-88 12:21:00 Test Item Value Reference Range Interpretation Comments RBC Morph (test code = Normal (03/09/21 6:21 RBC Morph) AM) [place] 052861-11-12 12:21:00 Test Item Value Reference Range Interpretation Comments Plt Morph (test code = Normal (03/09/21 6:21 Plt Morph) AM) [place] 052861-11-12 12:21:00 Test Item Value Reference Range Interpretation Comments RBC Morph (test code = Normal (03/09/21 6:21 RBC Morph) AM) [facility] CypressMqrhttyJSIDNXLIUQ9921-26-53 12:21:00 Test Item Value Reference Range Interpretation Comments Plt Morph (test code = Normal (03/09/21 6:21 Plt Morph) AM) [facility] CypressEqhmqktZHKNOHWISL0800-86-01 11:55:00 Test Item Value Reference Range Interpretation Comments Basophils # (test code 0.1 See_Comment [Aut omated message] The = Basophils #) system which generated this result tra nsmitted reference range : <=0.2. The reference r abdifatah was not used to int erpret this result as normal/abnormal . [facility] CypressMrmirzqHASCBRUIKW7247-73-17 11:55:00 Test Item Value Reference Range Interpretation Comments Bands (test code = 0.0 See_Comment [Automat ed message] The Bands) system which ge nerated this result transmit gill reference range : <=11.0. The reference r abdifatah was not used to interpr et this result as len l/abnormal. [facility] CypressGfnffdiDGSZMIBZVL3765-14-80 11:55:00 Test Item Value Reference Range Interpretation Comments Atypical Lymphs (test code = Atypical 0.0 Lymphs) [facility] CypressQthcdruYLOAEXOHSO3817-89-65 11:55:00 Test Item Value Reference Range Interpretation Comments NRBC (test code = NRBC) 1 [facility] CypressOopadwiAJXVFBVHLJ0277-61-07 11:55:00 Test Item Value Reference Range Interpretation Comments Plt Morph (test code = Normal (03/06/21 5:55 Plt Morph) AM) [facility] CypressBdtxjjbSATKSSCXOD3474-94-44 11:55:00 Test Item Value Reference Range Interpretation Comments Anisocyte (test code = 1+ *ABN*(03/06/21 Anisocyte) 5:55 AM) [facility] CypressEheetebVJNWSYHYYS6867-60-16 11:55:00 Test Item Value Reference Range Interpretation Comments Hypochrom (test code = 1+ (03/06/21 5:55 AM) Hypochrom) [facility] CypressMezxctnYQMISMXKGT2652-75-79 11:55:00 Test Item Value Reference Range Interpretation Comments Basophils # (test code 0.1 See_Comment [Aut omated message] The = Basophils #) system which generated this result tra nsmitted reference range : <=0.2. The reference r abdifatah was not used to int erpret this result as normal/abnormal . [place] 052861-11-09 11:55:00 Test Item Value Reference Range Interpretation Comments Bands (test code = 0.0 See_Comment [Automat ed message] The Bands) system which ge nerated this result transmit gill reference range : <=11.0. The reference r abdifatah was not used to interpr et this result as len l/abnormal. [place] 052861-11-09 11:55:00 Test Item Value Reference Range Interpretation Comments Atypical Lymphs (test code = Atypical 0.0 Lymphs) [place] [address]-11-09 11:55:00 Test Item Value Reference Range Interpretation Comments NRBC (test code = NRBC) 1 [place] [address]-11-09 11:55:00 Test Item Value Reference Range Interpretation Comments Plt Morph (test code = Normal (03/06/21 5:55 Plt Morph) AM) [place] 052861-11-09 11:55:00 Test Item Value Reference Range Interpretation Comments Anisocyte (test code = 1+ *ABN*(03/06/21 Anisocyte) 5:55 AM) [place] [address]-11-09 11:55:00 Test Item Value Reference Range Interpretation Comments Hypochrom (test code = 1+ (03/06/21 5:55 AM) Hypochrom) [place] 878481-11-07 15:37:00 Test Item Value Reference Range Interpretation Comments Glucose Lvl (test code = Glucose Lvl) 86 70-99 [place] 878481-11-07 15:37:00 Test Item Value Reference Range Interpretation Comments BUN (test code = BUN) 15 7-22 [place] 878481-11-07 15:37:00 Test Item Value Reference Range Interpretation Comments Creatinine Lvl (test code = Creatinine 0.56 0.50-1.40 Lvl) [place] 878481-11-07 15:37:00 Test Item Value Reference Range Interpretation Comments Sodium Lvl (test code = Sodium Lvl) 140 135-145 [place] 878481-11-07 15:37:00 Test Item Value Reference Range Interpretation Comments Potassium Lvl (test code = Potassium 3.7 3.5-5.1 Lvl) [place] 878481-11-07 15:37:00 Test Item Value Reference Range Interpretation Comments Chloride Lvl (test code = Chloride Lvl) 106 95-109 [place] 878481-11-07 15:37:00 Test Item Value Reference Range Interpretation Comments CO2 (test code = CO2) - [place] 878481-11-07 15:37:00 Test Item Value Reference Range Interpretation Comments Calcium Lvl (test code = Calcium Lvl) 9.9 8.5-10.5 [place] 878481-11-07 15:37:00 Test Item Value Reference Range Interpretation Comments AGAP (test code = AGAP) 10.7 10.0-20.0 [place] 878481-11-07 15:37:00 Test Item Value Reference Range Interpretation Comments eGFR (test code = eGFR) 104 [place] 878481-11-07 15:37:00 Test Item Value Reference Range Interpretation Comments Glucose Lvl (test code = Glucose Lvl) 86 70-99 [place] 878481-11-07 15:37:00 Test Item Value Reference Range Interpretation Comments BUN (test code = BUN) 15 7-22 [place] 878481-11-07 15:37:00 Test Item Value Reference Range Interpretation Comments Creatinine Lvl (test code = Creatinine 0.56 0.50-1.40 Lvl) [place] 878481-11-07 15:37:00 Test Item Value Reference Range Interpretation Comments Sodium Lvl (test code = Sodium Lvl) 140 135-145 [place] 878481-11-07 15:37:00 Test Item Value Reference Range Interpretation Comments Potassium Lvl (test code = Potassium 3.7 3.5-5.1 Lvl) [facility]2021-11-07 15:37:00 Test Item Value Reference Range Interpretation Comments Chloride Lvl (test code = Chloride Lvl) 106 95-109 [facility]2021-11-07 15:37:00 Test Item Value Reference Range Interpretation Comments CO2 (test code = CO2) 24- [place] 878481-11-07 15:37:00 Test Item Value Reference Range Interpretation Comments Calcium Lvl (test code = Calcium Lvl) 9.9 8.5-10.5 [place] 878481-11-07 15:37:00 Test Item Value Reference Range Interpretation Comments AGAP (test code = AGAP) 10.7 10.0-20.0 [facility]2021-11-07 15:37:00 Test Item Value Reference Range Interpretation Comments eGFR (test code = eGFR) 104 [place] 878481-11-07 05:59:00 Test Item Value Reference Range Interpretation Comments Glucose Lvl (test code = Glucose Lvl) 106 70-99 [place] 878481-11-07 05:59:00 Test Item Value Reference Range Interpretation Comments BUN (test code = BUN) 12 7-22 [facility]2021-11-07 05:59:00 Test Item Value Reference Range Interpretation Comments Creatinine Lvl (test code = Creatinine 0.47 0.50-1.40 Lvl) [facility]2021-11-07 05:59:00 Test Item Value Reference Range Interpretation Comments Sodium Lvl (test code = Sodium Lvl) 135 135-145 [facility]2021-11-07 05:59:00 Test Item Value Reference Range Interpretation Comments Potassium Lvl (test code = Potassium 5.3 3.5-5.1 Lvl) [facility]2021-11-07 05:59:00 Test Item Value Reference Range Interpretation Comments Chloride Lvl (test code = Chloride Lvl) 107 95-109 [facility]2021-11-07 05:59:00 Test Item Value Reference Range Interpretation Comments CO2 (test code = CO2) 21 24-32 [place] 878481-11-07 05:59:00 Test Item Value Reference Range Interpretation Comments AGAP (test code = AGAP) 12.3 10.0-20.0 [facility]2021-11-07 05:59:00 Test Item Value Reference Range Interpretation Comments Calcium Lvl (test code = Calcium Lvl) 10.4 8.5-10.5 [facility]2021-11-07 05:59:00 Test Item Value Reference Range Interpretation Comments eGFR (test code = eGFR) 111 [facility]aue[facility]KAZZZRLVV3556-36-47 05:59:00 Test Item Value Reference Range Interpretation Comments Segs (test code = Segs) 80.4 45.0-75.0 [place] 052861-11-07 05:59:00 Test Item Value Reference Range Interpretation Comments Lymphocytes (test code = Lymphocytes) 13.5 20.0-40.0 [place] 052861-11-07 05:59:00 Test Item Value Reference Range Interpretation Comments Monocytes (test code = Monocytes) 5.7 2.0-12.0 [place] 052861-11-07 05:59:00 Test Item Value Reference Range Interpretation Comments Eosinophils (test code = 0.1 See_Comment [A utomated message] The Eosinophils) system which ge nerated this result tra nsmitted reference range : <=4.0. The reference r abdifatah was not used to int erpret this result as normal/abnormal . [place] 052861-11-07 05:59:00 Test Item Value Reference Range Interpretation Comments Basophils (test code = 0.3 See_Comment [Aut omated message] The Basophils) system which ge nerated this result tra nsmitted reference range : <=1.0. The reference r abdifatah was not used to int erpret this result as normal/abnormal . [facility]ressItzetpuQWSAPWWYVP4787-29-35 05:59:00 Test Item Value Reference Range Interpretation Comments Neutrophils # (test code = Neutrophils 6.3 1.5-8.1 #) [place] 052861-11-07 05:59:00 Test Item Value Reference Range Interpretation Comments Lymphocytes # (test code = Lymphocytes 1.1 1.0-5.5 #) [place] 052861-11-07 05:59:00 Test Item Value Reference Range Interpretation Comments Monocytes # (test code 0.4 See_Comment [Aut omated message] The = Monocytes #) system which generated this result tra nsmitted reference range : <=0.8. The reference r abdifatah was not used to int erpret this result as normal/abnormal . [place] 052861-11-07 05:59:00 Test Item Value Reference Range Interpretation Comments WBC (test code = WBC) 7.8 3.7-10.4 [place] 052861-11-07 05:59:00 Test Item Value Reference Range Interpretation Comments RBC (test code = RBC) 4.63 4.20-5.40 [place] 052861-11-07 05:59:00 Test Item Value Reference Range Interpretation Comments Hgb (test code = Hgb) 12.5 12.0-16.0 [place] 052861-11-07 05:59:00 Test Item Value Reference Range Interpretation Comments Hct (test code = Hct) 38.8 36.0-48.0 [place] 052861-11-07 05:59:00 Test Item Value Reference Range Interpretation Comments MCV (test code = MCV) 83.9 80.0-98.0 [place] 052861-11-07 05:59:00 Test Item Value Reference Range Interpretation Comments MCH (test code = MCH) 27.0 pg 27.0-31.0 [place] 052861-11-07 05:59:00 Test Item Value Reference Range Interpretation Comments MCHC (test code = MCHC) 32.2 32.0-36.0 [place] 052861-11-07 05:59:00 Test Item Value Reference Range Interpretation Comments RDW (test code = RDW) 16.6 11.5-14.5 [place] 052861-11-07 05:59:00 Test Item Value Reference Range Interpretation Comments Platelet (test code = Platelet) 372 133-450 [place] 052861-11-07 05:59:00 Test Item Value Reference Range Interpretation Comments MPV (test code = MPV) 8.2 7.4-10.4 [place] 878481-11-07 05:59:00 Test Item Value Reference Range Interpretation Comments Glucose Lvl (test code = Glucose Lvl) 106 70-99 [place] 878481-11-07 05:59:00 Test Item Value Reference Range Interpretation Comments BUN (test code = BUN) 12 7-22 [place] 878481-11-07 05:59:00 Test Item Value Reference Range Interpretation Comments Creatinine Lvl (test code = Creatinine 0.47 0.50-1.40 Lvl) [place] 878481-11-07 05:59:00 Test Item Value Reference Range Interpretation Comments Sodium Lvl (test code = Sodium Lvl) 135 135-145 [place] 878481-11-07 05:59:00 Test Item Value Reference Range Interpretation Comments Potassium Lvl (test code = Potassium 5.3 3.5-5.1 Lvl) [place] 878481-11-07 05:59:00 Test Item Value Reference Range Interpretation Comments Chloride Lvl (test code = Chloride Lvl) 107 95-109 [place] 878481-11-07 05:59:00 Test Item Value Reference Range Interpretation Comments CO2 (test code = CO2) 21 24-32 [place] [address]-11-07 05:59:00 Test Item Value Reference Range Interpretation Comments AGAP (test code = AGAP) 12.3 10.0-20.0 [place] 878481-11-07 05:59:00 Test Item Value Reference Range Interpretation Comments Calcium Lvl (test code = Calcium Lvl) 10.4 8.5-10.5 [place] 878481-11-07 05:59:00 Test Item Value Reference Range Interpretation Comments eGFR (test code = eGFR) 111 [place] [address]-11-07 05:59:00 Test Item Value Reference Range Interpretation Comments Segs (test code = Segs) 80.4 45.0-75.0 [place] [address]-11-07 05:59:00 Test Item Value Reference Range Interpretation Comments Lymphocytes (test code = Lymphocytes) 13.5 20.0-40.0 [place] [address]-11-07 05:59:00 Test Item Value Reference Range Interpretation Comments Monocytes (test code = Monocytes) 5.7 2.0-12.0 [place] [address]-11-07 05:59:00 Test Item Value Reference Range Interpretation Comments Eosinophils (test code = 0.1 See_Comment [A utomated message] The Eosinophils) system which ge nerated this result tra nsmitted reference range : <=4.0. The reference r abdifatah was not used to int erpret this result as normal/abnormal . [place] 052861-11-07 05:59:00 Test Item Value Reference Range Interpretation Comments Basophils (test code = 0.3 See_Comment [Aut omated message] The Basophils) system which ge nerated this result tra nsmitted reference range : <=1.0. The reference r abdifatah was not used to int erpret this result as normal/abnormal . [place] 052861-11-07 05:59:00 Test Item Value Reference Range Interpretation Comments Neutrophils # (test code = Neutrophils 6.3 1.5-8.1 #) [place] 052861-11-07 05:59:00 Test Item Value Reference Range Interpretation Comments Lymphocytes # (test code = Lymphocytes 1.1 1.0-5.5 #) [place] 052861-11-07 05:59:00 Test Item Value Reference Range Interpretation Comments Monocytes # (test code 0.4 See_Comment [Aut omated message] The = Monocytes #) system which generated this result tra nsmitted reference range : <=0.8. The reference r abdifatah was not used to int erpret this result as normal/abnormal . [place] 052861-11-07 05:59:00 Test Item Value Reference Range Interpretation Comments WBC (test code = WBC) 7.8 3.7-10.4 [place] 052861-11-07 05:59:00 Test Item Value Reference Range Interpretation Comments RBC (test code = RBC) 4.63 4.20-5.40 [place] 052861-11-07 05:59:00 Test Item Value Reference Range Interpretation Comments Hgb (test code = Hgb) 12.5 12.0-16.0 [place] 052861-11-07 05:59:00 Test Item Value Reference Range Interpretation Comments Hct (test code = Hct) 38.8 36.0-48.0 [place] 052861-11-07 05:59:00 Test Item Value Reference Range Interpretation Comments MCV (test code = MCV) 83.9 80.0-98.0 [place] 052861-11-07 05:59:00 Test Item Value Reference Range Interpretation Comments MCH (test code = MCH) 27.0 pg 27.0-31.0 [place] [address]-11-07 05:59:00 Test Item Value Reference Range Interpretation Comments MCHC (test code = MCHC) 32.2 32.0-36.0 [place] [address]-11-07 05:59:00 Test Item Value Reference Range Interpretation Comments RDW (test code = RDW) 16.6 11.5-14.5 [place] 052861-11-07 05:59:00 Test Item Value Reference Range Interpretation Comments Platelet (test code = Platelet) 372 133-450 [place] 052861-11-07 05:59:00 Test Item Value Reference Range Interpretation Comments MPV (test code = MPV) 8.2 7.4-10.4 [place] 878481-11-06 11:22:00 Test Item Value Reference Range Interpretation Comments Glucose Lvl (test code = Glucose Lvl) 83 70-99 [place] 878481-11-06 11:22:00 Test Item Value Reference Range Interpretation Comments BUN (test code = BUN) 10 7-22 [place] 878481-11-06 11:22:00 Test Item Value Reference Range Interpretation Comments Creatinine Lvl (test code = Creatinine 0.42 0.50-1.40 Lvl) [place] 878481-11-06 11:22:00 Test Item Value Reference Range Interpretation Comments Sodium Lvl (test code = Sodium Lvl) 142 135-145 [place] 878481-11-06 11:22:00 Test Item Value Reference Range Interpretation Comments Potassium Lvl (test code = Potassium 3.9 3.5-5.1 Lvl) [place] 878481-11-06 11:22:00 Test Item Value Reference Range Interpretation Comments Chloride Lvl (test code = Chloride Lvl) 111 95-109 [place] 878481-11-06 11:22:00 Test Item Value Reference Range Interpretation Comments CO2 (test code = CO2) 25 24-32 [place] 878481-11-06 11:22:00 Test Item Value Reference Range Interpretation Comments Calcium Lvl (test code = Calcium Lvl) 9.9 8.5-10.5 [place] 878481-11-06 11:22:00 Test Item Value Reference Range Interpretation Comments AGAP (test code = AGAP) 9.9 10.0-20.0 [place] 878481-11-06 11:22:00 Test Item Value Reference Range Interpretation Comments eGFR (test code = eGFR) 115 [place] 052861-11-06 11:22:00 Test Item Value Reference Range Interpretation Comments Segs (test code = Segs) 46.7 45.0-75.0 [place] 052861-11-06 11:22:00 Test Item Value Reference Range Interpretation Comments Lymphocytes (test code = Lymphocytes) 38.0 20.0-40.0 [place] 052861-11-06 11:22:00 Test Item Value Reference Range Interpretation Comments Monocytes (test code = Monocytes) 9.2 2.0-12.0 [facility]ressPbyuykqNNRLEFWIHA4527-56-90 11:22:00 Test Item Value Reference Range Interpretation Comments Eosinophils (test code = 5.0 See_Comment [A utomated message] The Eosinophils) system which ge nerated this result tra nsmitted reference range : <=4.0. The reference r abdifatah was not used to int erpret this result as normal/abnormal . [facility] CypressHtqnpncQOZVPHGPPV2837-76-23 11:22:00 Test Item Value Reference Range Interpretation Comments Basophils (test code = 1.1 See_Comment [Aut omated message] The Basophils) system which ge nerated this result tra nsmitted reference range : <=1.0. The reference r abdifatah was not used to int erpret this result as normal/abnormal . [facility] CypressDjilfrkAOXGOKNNIT5568-23-11 11:22:00 Test Item Value Reference Range Interpretation Comments Neutrophils # (test code = Neutrophils 1.9 1.5-8.1 #) [facility] CypressMbfenhtCYWFGVPOCE9400-52-01 11:22:00 Test Item Value Reference Range Interpretation Comments Lymphocytes # (test code = Lymphocytes 1.6 1.0-5.5 #) [place] 052861-11-06 11:22:00 Test Item Value Reference Range Interpretation Comments Monocytes # (test code 0.4 See_Comment [Aut omated message] The = Monocytes #) system which generated this result tra nsmitted reference range : <=0.8. The reference r abdifatah was not used to int erpret this result as normal/abnormal . [facility] CypressWimsagkXEWHDCYNYI3477-95-82 11:22:00 Test Item Value Reference Range Interpretation Comments Eosinophils # (test code 0.2 See_Comment [A utomated message] The = Eosinophils #) system ic h generated this result tra nsmitted reference range : <=0.5. The reference r abdifatah was not used to int erpret this result as normal/abnormal . [place] 052861-11-06 11:22:00 Test Item Value Reference Range Interpretation Comments WBC (test code = WBC) 4.1 3.7-10.4 [place] 052861-11-06 11:22:00 Test Item Value Reference Range Interpretation Comments RBC (test code = RBC) 4.31 4.20-5.40 [place] 052861-11-06 11:22:00 Test Item Value Reference Range Interpretation Comments Hgb (test code = Hgb) 11.6 12.0-16.0 [place] 052861-11-06 11:22:00 Test Item Value Reference Range Interpretation Comments Hct (test code = Hct) 35.9 36.0-48.0 [place] 052861-11-06 11:22:00 Test Item Value Reference Range Interpretation Comments MCV (test code = MCV) 83.2 80.0-98.0 [place] [address]-11-06 11:22:00 Test Item Value Reference Range Interpretation Comments MCH (test code = MCH) 26.9 pg 27.0-31.0 [place] 052861-11-06 11:22:00 Test Item Value Reference Range Interpretation Comments MCHC (test code = MCHC) 32.3 32.0-36.0 [place] 052861-11-06 11:22:00 Test Item Value Reference Range Interpretation Comments RDW (test code = RDW) 16.7 11.5-14.5 [place] 052861-11-06 11:22:00 Test Item Value Reference Range Interpretation Comments Platelet (test code = Platelet) 317 133-450 [place] 052861-11-06 11:22:00 Test Item Value Reference Range Interpretation Comments MPV (test code = MPV) 8.6 7.4-10.4 [place] 878481-11-06 11:22:00 Test Item Value Reference Range Interpretation Comments Glucose Lvl (test code = Glucose Lvl) 83 70-99 [place] 878481-11-06 11:22:00 Test Item Value Reference Range Interpretation Comments BUN (test code = BUN) 10 7-22 [place] 878481-11-06 11:22:00 Test Item Value Reference Range Interpretation Comments Creatinine Lvl (test code = Creatinine 0.42 0.50-1.40 Lvl) [place] 878481-11-06 11:22:00 Test Item Value Reference Range Interpretation Comments Sodium Lvl (test code = Sodium Lvl) 142 135-145 [place] 878481-11-06 11:22:00 Test Item Value Reference Range Interpretation Comments Potassium Lvl (test code = Potassium 3.9 3.5-5.1 Lvl) [place] 878481-11-06 11:22:00 Test Item Value Reference Range Interpretation Comments Chloride Lvl (test code = Chloride Lvl) 111 95-109 [place] 878481-11-06 11:22:00 Test Item Value Reference Range Interpretation Comments CO2 (test code = CO2) 25 24-32 [place] 878481-11-06 11:22:00 Test Item Value Reference Range Interpretation Comments Calcium Lvl (test code = Calcium Lvl) 9.9 8.5-10.5 [place] 878481-11-06 11:22:00 Test Item Value Reference Range Interpretation Comments AGAP (test code = AGAP) 9.9 10.0-20.0 [place] 878481-11-06 11:22:00 Test Item Value Reference Range Interpretation Comments eGFR (test code = eGFR) 115 [facility] CypressVytkxsmOLOXTBTPCG7196-55-84 11:22:00 Test Item Value Reference Range Interpretation Comments Segs (test code = Segs) 46.7 45.0-75.0 [place] 052861-11-06 11:22:00 Test Item Value Reference Range Interpretation Comments Lymphocytes (test code = Lymphocytes) 38.0 20.0-40.0 [place] 052861-11-06 11:22:00 Test Item Value Reference Range Interpretation Comments Monocytes (test code = Monocytes) 9.2 2.0-12.0 [place] 052861-11-06 11:22:00 Test Item Value Reference Range Interpretation Comments Eosinophils (test code = 5.0 See_Comment [A utomated message] The Eosinophils) system which ge nerated this result tra nsmitted reference range : <=4.0. The reference r abdifatah was not used to int erpret this result as normal/abnormal . [place] 052861-11-06 11:22:00 Test Item Value Reference Range Interpretation Comments Basophils (test code = 1.1 See_Comment [Aut omated message] The Basophils) system which ge nerated this result tra nsmitted reference range : <=1.0. The reference r abdifatah was not used to int erpret this result as normal/abnormal . [facility] CypressYwlgqicZSVWNFMWZO3833-61-05 11:22:00 Test Item Value Reference Range Interpretation Comments Neutrophils # (test code = Neutrophils 1.9 1.5-8.1 #) [facility] CypressTnnnrczBCAFDPPCHH1369-47-08 11:22:00 Test Item Value Reference Range Interpretation Comments Lymphocytes # (test code = Lymphocytes 1.6 1.0-5.5 #) [facility] CypressPkkfkrdXADRMFLPZU4742-23-79 11:22:00 Test Item Value Reference Range Interpretation Comments Monocytes # (test code 0.4 See_Comment [Aut omated message] The = Monocytes #) system which generated this result tra nsmitted reference range : <=0.8. The reference r abdifatah was not used to int erpret this result as normal/abnormal . [facility] CypressTzzccllZPFGFHBJSA8056-73-13 11:22:00 Test Item Value Reference Range Interpretation Comments Eosinophils # (test code 0.2 See_Comment [A utomated message] The = Eosinophils #) system whic h generated this result tra nsmitted reference range : <=0.5. The reference r abdifatah was not used to int erpret this result as normal/abnormal . [facility] CypressTjvxxmwVOMHJRUCGM0830-74-63 11:22:00 Test Item Value Reference Range Interpretation Comments WBC (test code = WBC) 4.1 3.7-10.4 [place] 052861-11-06 11:22:00 Test Item Value Reference Range Interpretation Comments RBC (test code = RBC) 4.31 4.20-5.40 [place] 052861-11-06 11:22:00 Test Item Value Reference Range Interpretation Comments Hgb (test code = Hgb) 11.6 12.0-16.0 [place] 052861-11-06 11:22:00 Test Item Value Reference Range Interpretation Comments Hct (test code = Hct) 35.9 36.0-48.0 [place] 052861-11-06 11:22:00 Test Item Value Reference Range Interpretation Comments MCV (test code = MCV) 83.2 80.0-98.0 [facility] CypressYsjdjswUFYJVVGLWR0292-86-14 11:22:00 Test Item Value Reference Range Interpretation Comments MCH (test code = MCH) 26.9 pg 27.0-31.0 [facility] CypressOuctbayEOQNHUTCOM5168-81-78 11:22:00 Test Item Value Reference Range Interpretation Comments MCHC (test code = MCHC) 32.3 32.0-36.0 [facility] CypressGqjwwziGRUUBVQAUU6916-22-49 11:22:00 Test Item Value Reference Range Interpretation Comments RDW (test code = RDW) 16.7 11.5-14.5 [facility] CypressLuiegreSTPJODSQMW6623-38-61 11:22:00 Test Item Value Reference Range Interpretation Comments Platelet (test code = Platelet) 317 133-450 [facility] CypressTcecrrkWUCAWDKFYL0805-23-47 11:22:00 Test Item Value Reference Range Interpretation Comments MPV (test code = MPV) 8.6 7.4-10.4 [facility] CypressIdsodyaRWCDBAEMZI6563-04-86 10:15:00 Test Item Value Reference Range Interpretation Comments WBC (test code = WBC) 5.1 3.7-10.4 [facility] CypressEydzqfxBTUQNPAVIF2646-36-82 10:15:00 Test Item Value Reference Range Interpretation Comments RBC (test code = RBC) 4.31 4.20-5.40 [facility] CypressNjuntjaSIHMYUGJWA3974-61-80 10:15:00 Test Item Value Reference Range Interpretation Comments Hgb (test code = Hgb) 11.5 12.0-16.0 [facility] CypressCovbkgfZNBIOBOMKF0093-11-52 10:15:00 Test Item Value Reference Range Interpretation Comments Hct (test code = Hct) 36.1 36.0-48.0 [facility] CypressGsxbojeKABVFTZIYR7286-33-33 10:15:00 Test Item Value Reference Range Interpretation Comments MCV (test code = MCV) 83.9 80.0-98.0 [facility] CypressLgubpwbBWHCQSUCIG8239-08-57 10:15:00 Test Item Value Reference Range Interpretation Comments MCH (test code = MCH) 26.8 pg 27.0-31.0 [facility] CypressPyxjpbyUHVJYOYOYM2518-07-25 10:15:00 Test Item Value Reference Range Interpretation Comments MCHC (test code = MCHC) 32.0 32.0-36.0 [facility] CypressTelhpmwMYGYWUAMXO7293-31-34 10:15:00 Test Item Value Reference Range Interpretation Comments RDW (test code = RDW) 16.8 11.5-14.5 [facility] CypressLxrfvhrENICJNAXKC5324-15-16 10:15:00 Test Item Value Reference Range Interpretation Comments Platelet (test code = Platelet) 319 133-450 [facility] CypressQitsjzpVNWQQCOVBK4284-43-03 10:15:00 Test Item Value Reference Range Interpretation Comments MPV (test code = MPV) 8.3 7.4-10.4 [facility] CypressKtdbnynANKROFEHCM8785-95-54 10:15:00 Test Item Value Reference Range Interpretation Comments Segs (test code = Segs) 48.8 45.0-75.0 [place] 052861-11-05 10:15:00 Test Item Value Reference Range Interpretation Comments Lymphocytes (test code = Lymphocytes) 35.6 20.0-40.0 [facility] CypressGbizasnCJMGSQMHXI5553-53-78 10:15:00 Test Item Value Reference Range Interpretation Comments Monocytes (test code = Monocytes) 9.7 2.0-12.0 [facility] CypressGvhihvrBKILSXTAHF8217-37-64 10:15:00 Test Item Value Reference Range Interpretation Comments Eosinophils (test code = 4.8 See_Comment [A utomated message] The Eosinophils) system which ge nerated this result tra nsmitted reference range : <=4.0. The reference r abdifatah was not used to int erpret this result as normal/abnormal . [facility] CypressGcvpsheNWXBQBGYFR4729-55-06 10:15:00 Test Item Value Reference Range Interpretation Comments Basophils (test code = 1.1 See_Comment [Aut omated message] The Basophils) system which ge nerated this result tra nsmitted reference range : <=1.0. The reference r abdifatah was not used to int erpret this result as normal/abnormal . [facility] CypressGkafpeqQEJCILTPXQ1244-42-26 10:15:00 Test Item Value Reference Range Interpretation Comments Neutrophils # (test code = Neutrophils 2.5 1.5-8.1 #) [facility] CypressVeqnwhsEEGELBNBJO9269-31-67 10:15:00 Test Item Value Reference Range Interpretation Comments Lymphocytes # (test code = Lymphocytes 1.8 1.0-5.5 #) [facility] CypressHgebbfhSZURKILBQN4110-08-56 10:15:00 Test Item Value Reference Range Interpretation Comments Monocytes # (test code 0.5 See_Comment [Aut omated message] The = Monocytes #) system which generated this result tra nsmitted reference range : <=0.8. The reference r abdifatah was not used to int erpret this result as normal/abnormal . [facility] CypressIuygwrgNZAOHAVDCJ2132-39-62 10:15:00 Test Item Value Reference Range Interpretation Comments Eosinophils # (test code 0.2 See_Comment [A utomated message] The = Eosinophils #) system whic h generated this result tra nsmitted reference range : <=0.5. The reference r abdifatah was not used to int erpret this result as normal/abnormal . [facility] CypressEoemioiDYHEQLFJAP7692-34-24 10:15:00 Test Item Value Reference Range Interpretation Comments Basophils # (test code 0.1 See_Comment [Aut omated message] The = Basophils #) system which generated this result tra nsmitted reference range : <=0.2. The reference r abdifatah was not used to int erpret this result as normal/abnormal . [facility] CypressGwtiphwBJNALTFJGW0607-71-44 10:15:00 Test Item Value Reference Range Interpretation Comments WBC (test code = WBC) 5.1 3.7-10.4 [facility] CypressTvlivcjDRWGYPALIW4887-62-96 10:15:00 Test Item Value Reference Range Interpretation Comments RBC (test code = RBC) 4.31 4.20-5.40 [facility] CypressClflbeqZDIUMAJHTU2374-77-84 10:15:00 Test Item Value Reference Range Interpretation Comments Hgb (test code = Hgb) 11.5 12.0-16.0 [place] 052861-11-05 10:15:00 Test Item Value Reference Range Interpretation Comments Hct (test code = Hct) 36.1 36.0-48.0 [facility] CypressAofyynjLIAXFNYLBO1205-51-92 10:15:00 Test Item Value Reference Range Interpretation Comments MCV (test code = MCV) 83.9 80.0-98.0 [place] 052861-11-05 10:15:00 Test Item Value Reference Range Interpretation Comments MCH (test code = MCH) 26.8 pg 27.0-31.0 [place] 052861-11-05 10:15:00 Test Item Value Reference Range Interpretation Comments MCHC (test code = MCHC) 32.0 32.0-36.0 [place] 052861-11-05 10:15:00 Test Item Value Reference Range Interpretation Comments RDW (test code = RDW) 16.8 11.5-14.5 [facility] CypressQrfsegnSVBKUZCONX8802-46-63 10:15:00 Test Item Value Reference Range Interpretation Comments Platelet (test code = Platelet) 319 133-450 [facility] CypressHonhimeLDZDRUMAJW1720-59-64 10:15:00 Test Item Value Reference Range Interpretation Comments MPV (test code = MPV) 8.3 7.4-10.4 [place] 052861-11-05 10:15:00 Test Item Value Reference Range Interpretation Comments Segs (test code = Segs) 48.8 45.0-75.0 [place] 052861-11-05 10:15:00 Test Item Value Reference Range Interpretation Comments Lymphocytes (test code = Lymphocytes) 35.6 20.0-40.0 [place] 052861-11-05 10:15:00 Test Item Value Reference Range Interpretation Comments Monocytes (test code = Monocytes) 9.7 2.0-12.0 [facility]ressBevmztgVMJXUOFZMY0683-08-20 10:15:00 Test Item Value Reference Range Interpretation Comments Eosinophils (test code = 4.8 See_Comment [A utomated message] The Eosinophils) system which ge nerated this result tra nsmitted reference range : <=4.0. The reference r abdifatah was not used to int erpret this result as normal/abnormal . [place] 052861-11-05 10:15:00 Test Item Value Reference Range Interpretation Comments Basophils (test code = 1.1 See_Comment [Aut omated message] The Basophils) system which ge nerated this result tra nsmitted reference range : <=1.0. The reference r abdifatah was not used to int erpret this result as normal/abnormal . [place] 052861-11-05 10:15:00 Test Item Value Reference Range Interpretation Comments Neutrophils # (test code = Neutrophils 2.5 1.5-8.1 #) [facility] CypressDdiyhkiGOLJDEKOPT4047-34-93 10:15:00 Test Item Value Reference Range Interpretation Comments Lymphocytes # (test code = Lymphocytes 1.8 1.0-5.5 #) [facility] CypressRcwuybeIEUFUMREUL3510-31-24 10:15:00 Test Item Value Reference Range Interpretation Comments Monocytes # (test code 0.5 See_Comment [Aut omated message] The = Monocytes #) system which generated this result tra nsmitted reference range : <=0.8. The reference r abdifatah was not used to int erpret this result as normal/abnormal . [facility] CypressUguvonxLPRCHKYOGS3253-82-90 10:15:00 Test Item Value Reference Range Interpretation Comments Eosinophils # (test code 0.2 See_Comment [A utomated message] The = Eosinophils #) system whic h generated this result tra nsmitted reference range : <=0.5. The reference r abdifatah was not used to int erpret this result as normal/abnormal . [facility] CypressIocdlmtDLTULUBHZW6222-89-24 10:15:00 Test Item Value Reference Range Interpretation Comments Basophils # (test code 0.1 See_Comment [Aut omated message] The = Basophils #) system which generated this result tra nsmitted reference range : <=0.2. The reference r abdifatah was not used to int erpret this result as normal/abnormal . [facility] ZMSNIFC4082-01-36 11:36:00 Test Item Value Reference Range Interpretation Comments ABO/Rh (test code = ABO/Rh) A POS [facility] LGEMWNV7326-16-44 11:36:00 Test Item Value Reference Range Interpretation Comments Antibody Scrn (test Negative (03/01/21 6:36 code = Antibody Scrn) AM) [facility] [id number] 11:36:00 Test Item Value Reference Range Interpretation Comments ABO/Rh (test code = ABO/Rh) A POS [facility] INNJDJC6589-11-61 11:36:00 Test Item Value Reference Range Interpretation Comments Antibody Scrn (test Negative (03/01/21 6:36 code = Antibody Scrn) AM) [facility] CenterBornhcoJGDAXAGSCQ9468-35-35 10:55:00 Test Item Value Reference Range Interpretation Comments Coronavirus (COVID-19) Not Detected (03/01/21 KASSY (test code = 5:55 AM) Coronavirus (COVID-19) KASSY) [facility]ASLGB[facility]SO8026[facility]71-14 10:55:00 Test Item Value Reference Range Interpretation Comments Coronavirus (COVID-19) Not Detected (03/01/21 KASSY (test code = 5:55 AM) Coronavirus (COVID-19) KASSY) [facility] CypressExnncohDTYNODAAKW3135-90-25 06:29:00 Test Item Value Reference Range Interpretation Comments Eosinophils # (test code 0.2 See_Comment [A utomated message] The = Eosinophils #) system [facility] generated this result tra nsmitted reference range : <=0.5. The reference r abdifatah was not used to int erpret this result as normal/abnormal . [facility] CypressNeayvkzPFKMZXXSYM9991-51-30 06:29:00 Test Item Value Reference Range Interpretation Comments Basophils # (test code 0.1 See_Comment [Aut omated message] The = Basophils #) system which generated this result tra nsmitted reference range : <=0.2. The reference r abdifatah was not used to int erpret this result as normal/abnormal . [facility] CypressLevqofnWSJFISPKRM5249-68-32 06:29:00 Test Item Value Reference Range Interpretation Comments PT (test code = PT) 13.4 s 12.0-14.7 [place] 052861-11-04 06:29:00 Test Item Value Reference Range Interpretation Comments INR (test code = INR) 1.03 1 0.85-1.17 [place] 052861-11-04 06:29:00 Test Item Value Reference Range Interpretation Comments PTT (test code = PTT) 30.8 s 22.9-35.8 [place] 052861-11-04 06:29:00 Test Item Value Reference Range Interpretation Comments Eosinophils # (test code 0.2 See_Comment [A utomated message] The = Eosinophils #) system [facility] generated this result tra nsmitted reference range : <=0.5. The reference r abdifatah was not used to int erpret this result as normal/abnormal . [facility] CypressRtsgebeUPLNIXXRQT2214-61-67 06:29:00 Test Item Value Reference Range Interpretation Comments Basophils # (test code 0.1 See_Comment [Aut omated message] The = Basophils #) system which generated this result tra nsmitted reference range : <=0.2. The reference r abdifatah was not used to int erpret this result as normal/abnormal . [place] 052861-11-04 06:29:00 Test Item Value Reference Range Interpretation Comments PT (test code = PT) 13.4 s 12.0-14.7 [place] 052861-11-04 06:29:00 Test Item Value Reference Range Interpretation Comments INR (test code = INR) 1.03 1 0.85-1.17 [place] 052861-11-04 06:29:00 Test Item Value Reference Range Interpretation Comments PTT (test code = PTT) 30.8 s 22.9-35.8 [facility]2021-09-27 10:36:00 Test Item Value Reference Range Interpretation Comments Glucose Lvl (test code = Glucose Lvl) 85 70-99 [facility]2021-09-27 10:36:00 Test Item Value Reference Range Interpretation Comments BUN (test code = BUN) 19 7-22 [place] 878481-09-27 10:36:00 Test Item Value Reference Range Interpretation Comments Creatinine Lvl (test code = Creatinine 0.36 0.50-1.40 Lvl) [facility]2021-09-27 10:36:00 Test Item Value Reference Range Interpretation Comments Sodium Lvl (test code = Sodium Lvl) 139 135-145 [facility]2021-09-27 10:36:00 Test Item Value Reference Range Interpretation Comments Potassium Lvl (test code = Potassium 4.5 3.5-5.1 Lvl) [place] 878481-09-27 10:36:00 Test Item Value Reference Range Interpretation Comments Chloride Lvl (test code = Chloride Lvl) 106 95-109 [place] 878481-09-27 10:36:00 Test Item Value Reference Range Interpretation Comments CO2 (test code = CO2) 23 24-32 [place] 878481-09-27 10:36:00 Test Item Value Reference Range Interpretation Comments Calcium Lvl (test code = Calcium Lvl) 10.9 8.5-10.5 [place] 878481-09-27 10:36:00 Test Item Value Reference Range Interpretation Comments AGAP (test code = AGAP) 14.5 10.0-20.0 [place] 878481-09-27 10:36:00 Test Item Value Reference Range Interpretation Comments eGFR (test code = eGFR) 121 [facility] CypressFcqzxhdFENWBLMELG5957-85-52 10:36:00 Test Item Value Reference Range Interpretation Comments WBC X 10x3 (test code = WBC X 10x3) 8.0 3.7-10.4 [place] 052861-09-27 10:36:00 Test Item Value Reference Range Interpretation Comments RBC X 10x6 (test code = RBC X 10x6) 3.22 4.20-5.40 [facility] CypressVnjttrmYTCLVPSRBE4678-40-64 10:36:00 Test Item Value Reference Range Interpretation Comments Hgb (test code = Hgb) 9.3 12.0-16.0 [place] 052861-09-27 10:36:00 Test Item Value Reference Range Interpretation Comments Hct (test code = Hct) 29.3 36.0-48.0 [facility] CypressHdaefasJTIGDZXEUH3836-01-52 10:36:00 Test Item Value Reference Range Interpretation Comments MCV (test code = MCV) 91.0 80.0-98.0 [facility] CypressZvgpgukRDWFGRCXAR5628-32-24 10:36:00 Test Item Value Reference Range Interpretation Comments MCH (test code = MCH) 29.0 pg 27.0-31.0 [facility] CypressBznihaqPNVWJGZZPU8424-00-12 10:36:00 Test Item Value Reference Range Interpretation Comments MCHC (test code = MCHC) 31.8 32.0-36.0 [facility] CypressKlohtvgPNFAWAJYDK5892-01-88 10:36:00 Test Item Value Reference Range Interpretation Comments RDW (test code = RDW) 16.1 11.5-14.5 [facility] CypressFxjqqulUXEDNGLDVC8509-41-85 10:36:00 Test Item Value Reference Range Interpretation Comments Platelet (test code = Platelet) 1037 133-450 [facility] CypressNuwnluyWHTNXTJWEH3229-23-14 10:36:00 Test Item Value Reference Range Interpretation Comments MPV (test code = MPV) 7.0 7.4-10.4 [facility] CypressLpezovgKOGGBKKDBK3358-06-75 10:36:00 Test Item Value Reference Range Interpretation Comments RBC Morph (test code = Normal (01/22/21 5:36 RBC Morph) AM) [facility] CypressQylobgyHRPOWLNYHL3777-22-46 10:36:00 Test Item Value Reference Range Interpretation Comments Plt Morph (test code = Normal (01/22/21 5:36 Plt Morph) AM) [facility] CypressRvseyytHBCCYEWGMO5813-89-86 10:36:00 Test Item Value Reference Range Interpretation Comments Segs (test code = Segs) 62.7 45.0-75.0 [place] 052861-09-27 10:36:00 Test Item Value Reference Range Interpretation Comments Lymphocytes (test code = Lymphocytes) 25.7 20.0-40.0 [place] 052861-09-27 10:36:00 Test Item Value Reference Range Interpretation Comments Monocytes (test code = Monocytes) 8.5 2.0-12.0 [place] 052861-09-27 10:36:00 Test Item Value Reference Range Interpretation Comments Eosinophils (test code = 2.4 See_Comment [A utomated message] The Eosinophils) system which ge nerated this result tra nsmitted reference range : <=4.0. The reference r abdifatah was not used to int erpret this result as normal/abnormal . [facility] CypressNywbskrOPIOJSJVOB8873-76-41 10:36:00 Test Item Value Reference Range Interpretation Comments Basophils (test code = 0.7 See_Comment [Aut omated message] The Basophils) system which ge nerated this result tra nsmitted reference range : <=1.0. The reference r abdifatah was not used to int erpret this result as normal/abnormal . [facility] CypressSsamldeWWYNIFJFXJ5835-20-88 10:36:00 Test Item Value Reference Range Interpretation Comments Neutrophils # (test code = Neutrophils 5.0 1.5-8.1 #) [facility] CypressOjrisdhICUIDESDHT9256-39-00 10:36:00 Test Item Value Reference Range Interpretation Comments Lymphocytes # (test code = Lymphocytes 2.0 1.0-5.5 #) [place] 052861-09-27 10:36:00 Test Item Value Reference Range Interpretation Comments Monocytes # (test code 0.7 See_Comment [Aut omated message] The = Monocytes #) system which generated this result tra nsmitted reference range : <=0.8. The reference r abdifatah was not used to int erpret this result as normal/abnormal . [facility] CypressTtvpeegZQSAGOMRWV5509-01-97 10:36:00 Test Item Value Reference Range Interpretation Comments Eosinophils # (test code 0.2 See_Comment [A utomated message] The = Eosinophils #) system whic h generated this result tra nsmitted reference range : <=0.5. The reference r abdifatah was not used to int erpret this result as normal/abnormal . [facility] CypressKveeivgPSXCOFFTRZ8305-22-36 10:36:00 Test Item Value Reference Range Interpretation Comments Basophils # (test code 0.1 See_Comment [Aut omated message] The = Basophils #) system which generated this result tra nsmitted reference range : <=0.2. The reference r abdifatah was not used to int erpret this result as normal/abnormal . [facility]2021-09-27 10:36:00 Test Item Value Reference Range Interpretation Comments Glucose Lvl (test code = Glucose Lvl) 85 70-99 [facility]2021-09-27 10:36:00 Test Item Value Reference Range Interpretation Comments BUN (test code = BUN) 19 7-22 [place] 878481-09-27 10:36:00 Test Item Value Reference Range Interpretation Comments Creatinine Lvl (test code = Creatinine 0.36 0.50-1.40 Lvl) [facility]2021-09-27 10:36:00 Test Item Value Reference Range Interpretation Comments Sodium Lvl (test code = Sodium Lvl) 139 135-145 [place] 878481-09-27 10:36:00 Test Item Value Reference Range Interpretation Comments Potassium Lvl (test code = Potassium 4.5 3.5-5.1 Lvl) [place] 878481-09-27 10:36:00 Test Item Value Reference Range Interpretation Comments Chloride Lvl (test code = Chloride Lvl) 106 95-109 [place] 878481-09-27 10:36:00 Test Item Value Reference Range Interpretation Comments CO2 (test code = CO2) 23 24-32 [place] 878481-09-27 10:36:00 Test Item Value Reference Range Interpretation Comments Calcium Lvl (test code = Calcium Lvl) 10.9 8.5-10.5 [place] 878481-09-27 10:36:00 Test Item Value Reference Range Interpretation Comments AGAP (test code = AGAP) 14.5 10.0-20.0 [place] 878481-09-27 10:36:00 Test Item Value Reference Range Interpretation Comments eGFR (test code = eGFR) 121 [place] 052861-09-27 10:36:00 Test Item Value Reference Range Interpretation Comments WBC X 10x3 (test code = WBC X 10x3) 8.0 3.7-10.4 [place] 052861-09-27 10:36:00 Test Item Value Reference Range Interpretation Comments RBC X 10x6 (test code = RBC X 10x6) 3.22 4.20-5.40 [place] 052861-09-27 10:36:00 Test Item Value Reference Range Interpretation Comments Hgb (test code = Hgb) 9.3 12.0-16.0 [place] 052861-09-27 10:36:00 Test Item Value Reference Range Interpretation Comments Hct (test code = Hct) 29.3 36.0-48.0 [place] 052861-09-27 10:36:00 Test Item Value Reference Range Interpretation Comments MCV (test code = MCV) 91.0 80.0-98.0 [place] 052861-09-27 10:36:00 Test Item Value Reference Range Interpretation Comments MCH (test code = MCH) 29.0 pg 27.0-31.0 [place] 052861-09-27 10:36:00 Test Item Value Reference Range Interpretation Comments MCHC (test code = MCHC) 31.8 32.0-36.0 [place] 052861-09-27 10:36:00 Test Item Value Reference Range Interpretation Comments RDW (test code = RDW) 16.1 11.5-14.5 [place] 052861-09-27 10:36:00 Test Item Value Reference Range Interpretation Comments Platelet (test code = Platelet) 1037 133-450 [place] 052861-09-27 10:36:00 Test Item Value Reference Range Interpretation Comments MPV (test code = MPV) 7.0 7.4-10.4 [place] 052861-09-27 10:36:00 Test Item Value Reference Range Interpretation Comments RBC Morph (test code = Normal (01/22/21 5:36 RBC Morph) AM) [place] 052861-09-27 10:36:00 Test Item Value Reference Range Interpretation Comments Plt Morph (test code = Normal (01/22/21 5:36 Plt Morph) AM) [facility] CypressOvdzfuiSZAGDFXRQB4549-94-22 10:36:00 Test Item Value Reference Range Interpretation Comments Segs (test code = Segs) 62.7 45.0-75.0 [facility] CypressRejsfjpRQRXPSQTVM3046-46-50 10:36:00 Test Item Value Reference Range Interpretation Comments Lymphocytes (test code = Lymphocytes) 25.7 20.0-40.0 [facility] CypressDmndgrbTFIGLNSYPG1318-87-93 10:36:00 Test Item Value Reference Range Interpretation Comments Monocytes (test code = Monocytes) 8.5 2.0-12.0 [facility] CypressAhqbjdxGPDGGVDFBU2852-48-49 10:36:00 Test Item Value Reference Range Interpretation Comments Eosinophils (test code = 2.4 See_Comment [A utomated message] The Eosinophils) system which ge nerated this result tra nsmitted reference range : <=4.0. The reference r abdifatah was not used to int erpret this result as normal/abnormal . [facility] CypressXwytfvcFGCHBIUXNX1271-96-06 10:36:00 Test Item Value Reference Range Interpretation Comments Basophils (test code = 0.7 See_Comment [Aut omated message] The Basophils) system which ge nerated this result tra nsmitted reference range : <=1.0. The reference r abdifatah was not used to int erpret this result as normal/abnormal . [facility] CypressXxxalzeCUTONJICUO0104-45-50 10:36:00 Test Item Value Reference Range Interpretation Comments Neutrophils # (test code = Neutrophils 5.0 1.5-8.1 #) [facility] CypressSszvqkaSULZHKXGHX3250-59-21 10:36:00 Test Item Value Reference Range Interpretation Comments Lymphocytes # (test code = Lymphocytes 2.0 1.0-5.5 #) [facility] CypressZvhoseoUNQYPFLUPU5301-61-08 10:36:00 Test Item Value Reference Range Interpretation Comments Monocytes # (test code 0.7 See_Comment [Aut omated message] The = Monocytes #) system which generated this result tra nsmitted reference range : <=0.8. The reference r abdifatah was not used to int erpret this result as normal/abnormal . [facility] CypressHjwwctpDOUOEUHCUZ8930-68-49 10:36:00 Test Item Value Reference Range Interpretation Comments Eosinophils # (test code 0.2 See_Comment [A utomated message] The = Eosinophils #) system whic h generated this result tra nsmitted reference range : <=0.5. The reference r abdifatah was not used to int erpret this result as normal/abnormal . [facility] CypressVznnlobFPEUBIJAUN7642-84-16 10:36:00 Test Item Value Reference Range Interpretation Comments Basophils # (test code 0.1 See_Comment [Aut omated message] The = Basophils #) system which generated this result tra nsmitted reference range : <=0.2. The reference r abdifatah was not used to int erpret this result as normal/abnormal . [facility]HKLLPGZQAS1161[facility] 18:34:00 Test Item Value Reference Range Interpretation Comments Vanco Lvl (test code = Vanco Lvl) 17.5 [place] 13264021-09-24 18:34:00 Test Item Value Reference Range Interpretation Comments Vanco Lvl (test code = Vanco Lvl) 17.5 [facility] JKJCC6039-26-53 07:59:00 Test Item Value Reference Range Interpretation Comments Glucose Lvl (test code = Glucose Lvl) 61 70-99 [facility] [id number] 07:59:00 Test Item Value Reference Range Interpretation Comments BUN (test code = BUN) 15 7-22 [facility] [id number] 07:59:00 Test Item Value Reference Range Interpretation Comments Creatinine Lvl (test code = Creatinine 0.20 0.50-1.40 Lvl) [facility] [id number] 07:59:00 Test Item Value Reference Range Interpretation Comments Sodium Lvl (test code = Sodium Lvl) 145 135-145 [facility] EYVTD8287-07-34 07:59:00 Test Item Value Reference Range Interpretation Comments Potassium Lvl (test code = Potassium 3.8 3.5-5.1 Lvl) [facility] [id number] 07:59:00 Test Item Value Reference Range Interpretation Comments Chloride Lvl (test code = Chloride Lvl) 112 95-109 [facility] [id number] 07:59:00 Test Item Value Reference Range Interpretation Comments CO2 (test code = CO2) 22 24-32 [facility]2021-09-24 07:59:00 Test Item Value Reference Range Interpretation Comments Calcium Lvl (test code = Calcium Lvl) 8.9 8.5-10.5 [facility]2021-09-24 07:59:00 Test Item Value Reference Range Interpretation Comments AGAP (test code = AGAP) 14.8 10.0-20.0 [facility]2021-09-24 07:59:00 Test Item Value Reference Range Interpretation Comments eGFR (test code = eGFR) 148 [facility] CypressCwrlpwaGWPHSGDFMK4204-17-59 07:59:00 Test Item Value Reference Range Interpretation Comments WBC X 10x3 (test code = WBC X 10x3) 9.0 3.7-10.4 [facility] CypressMmhmpqnIVAABEGYTP1996-70-76 07:59:00 Test Item Value Reference Range Interpretation Comments RBC (test code = RBC) 2.43 4.20-5.40 [facility] CypressMnsqeqnVJUKQUROTK7314-47-68 07:59:00 Test Item Value Reference Range Interpretation Comments Hgb (test code = Hgb) 7.4 12.0-16.0 [facility] CypressSbzpdycYFXUQITCCB2437-76-25 07:59:00 Test Item Value Reference Range Interpretation Comments Hct (test code = Hct) 22.4 36.0-48.0 [facility] CypressOstgoijSZGFFXHKUB5281-70-47 07:59:00 Test Item Value Reference Range Interpretation Comments MCV (test code = MCV) 92.3 80.0-98.0 [facility] CypressTjkpxcbZJMQAQYHBQ2853-21-99 07:59:00 Test Item Value Reference Range Interpretation Comments MCH (test code = MCH) 30.4 pg 27.0-31.0 [facility] CypressVecyzszXNAKAMPIOG5890-86-36 07:59:00 Test Item Value Reference Range Interpretation Comments MCHC (test code = MCHC) 32.9 32.0-36.0 [facility] CypressTlowoggQCDMCXRXYF0751-58-60 07:59:00 Test Item Value Reference Range Interpretation Comments RDW (test code = RDW) 16.1 11.5-14.5 [facility] CypressZswsxbaKSGFLINPAD4873-43-72 07:59:00 Test Item Value Reference Range Interpretation Comments Platelet (test code = Platelet) 028 661-715 [facility] CypressNjfrsngKMDCADOAKK0879-63-01 07:59:00 Test Item Value Reference Range Interpretation Comments MPV (test code = MPV) 7.3 7.4-10.4 [place] 052861-09-24 07:59:00 Test Item Value Reference Range Interpretation Comments Neutrophils # (test code = Neutrophils 6.4 1.5-8.1 #) [place] 052861-09-24 07:59:00 Test Item Value Reference Range Interpretation Comments Lymphocytes # (test code = Lymphocytes 1.7 1.0-5.5 #) [place] 052861-09-24 07:59:00 Test Item Value Reference Range Interpretation Comments Monocytes # (test code 0.4 See_Comment [Aut omated message] The = Monocytes #) system which generated this result tra nsmitted reference range : <=0.8. The reference r abdifatah was not used to int erpret this result as normal/abnormal . [place] 052861-09-24 07:59:00 Test Item Value Reference Range Interpretation Comments Eosinophils # (test code 0.4 See_Comment [A utomated message] The = Eosinophils #) system whic h generated this result tra nsmitted reference range : <=0.5. The reference r abdifatah was not used to int erpret this result as normal/abnormal . [facility] CypressLkpurjdKMKSKAYMGT3484-04-45 07:59:00 Test Item Value Reference Range Interpretation Comments Basophils # (test code 0.1 See_Comment [Aut omated message] The = Basophils #) system which generated this result tra nsmitted reference range : <=0.2. The reference r abdifatah was not used to int erpret this result as normal/abnormal . [place] 052861-09-24 07:59:00 Test Item Value Reference Range Interpretation Comments Segs (test code = Segs) 71.0 45.0-75.0 [place] 052861-09-24 07:59:00 Test Item Value Reference Range Interpretation Comments Bands (test code = 0.0 See_Comment [Automat ed message] The Bands) system which ge nerated this result transmit gill reference range : <=11.0. The reference r abdifatah was not used to interpr et this result as len l/abnormal. [place] 052861-09-24 07:59:00 Test Item Value Reference Range Interpretation Comments Lymphocytes (test code = Lymphocytes) 19.0 20.0-40.0 [facility] CypressCglenfhSDJRGLYVCM8756-35-35 07:59:00 Test Item Value Reference Range Interpretation Comments Monocytes (test code = Monocytes) 5.0 2.0-12.0 [facility] CypressIltezagYBMVWJYTWS0992-85-48 07:59:00 Test Item Value Reference Range Interpretation Comments Eosinophils (test code = 4.0 See_Comment [A utomated message] The Eosinophils) system which ge nerated this result tra nsmitted reference range : <=4.0. The reference r abdifatah was not used to int erpret this result as normal/abnormal . [facility] CypressKonnbvdRMRZZGMDFK3033-45-80 07:59:00 Test Item Value Reference Range Interpretation Comments Basophils (test code = 1.0 See_Comment [Aut omated message] The Basophils) system which ge nerated this result tra nsmitted reference range : <=1.0. The reference r abdifatah was not used to int erpret this result as normal/abnormal . [facility] CypressZmlchcmXPTVPSRLPC5418-08-84 07:59:00 Test Item Value Reference Range Interpretation Comments Atypical Lymphs (test code = Atypical 0.0 Lymphs) [facility]ressTlmbfimXNTFKATKZJ9486-66-79 07:59:00 Test Item Value Reference Range Interpretation Comments Plt Morph (test code = Normal (01/19/21 2:59 Plt Morph) AM) [facility]ressVprahsyNTNHGWOBZU1341-23-69 07:59:00 Test Item Value Reference Range Interpretation Comments Tot Cell Ct (test code = Tot Cell Ct) 100 1 [facility] CypressNigrxdtYQIEFGFYLH1782-12-57 07:59:00 Test Item Value Reference Range Interpretation Comments Anisocyte (test code = 1+ *ABN*(01/19/21 Anisocyte) 2:59 AM) [facility]ressUzolbhdZVWAXJFJOX6307-79-86 07:59:00 Test Item Value Reference Range Interpretation Comments Macrocyte (test code = 1+ *ABN*(01/19/21 Macrocyte) 2:59 AM) [facility] CypressZwwysovZXQAUTBZID7536-04-95 07:59:00 Test Item Value Reference Range Interpretation Comments Hypochrom (test code = 1+ (01/19/21 2:59 AM) Hypochrom) [place] 052861-09-24 07:59:00 Test Item Value Reference Range Interpretation Comments Polychrom (test code = Moderate *ABN*(01/19/21 Polychrom) 2:59 AM) [facility]ressFkzqhljMFLRCFGUKU4827-93-11 07:59:00 Test Item Value Reference Range Interpretation Comments Baso Stipplin (test code = Baso Occasional Stipplin) [facility]rapgfhGGEKNLCXPJ9049-04-41 07:59:00 Test Item Value Reference Range Interpretation Comments Vancomycin AUC (test code = Vancomycin no gt AUC) [facility]2021-09-24 07:59:00 Test Item Value Reference Range Interpretation Comments Glucose Lvl (test code = Glucose Lvl) 61 70-99 [place] 878481-09-24 07:59:00 Test Item Value Reference Range Interpretation Comments BUN (test code = BUN) 15 - [facility]2021-09-24 07:59:00 Test Item Value Reference Range Interpretation Comments Creatinine Lvl (test code = Creatinine 0.20 0.50-1.40 Lvl) [facility]2021-09-24 07:59:00 Test Item Value Reference Range Interpretation Comments Sodium Lvl (test code = Sodium Lvl) 145 135-145 [facility]2021-09-24 07:59:00 Test Item Value Reference Range Interpretation Comments Potassium Lvl (test code = Potassium 3.8 3.5-5.1 Lvl) [facility]2021-09-24 07:59:00 Test Item Value Reference Range Interpretation Comments Chloride Lvl (test code = Chloride Lvl) 112 95-109 [facility]2021-09-24 07:59:00 Test Item Value Reference Range Interpretation Comments CO2 (test code = CO2) 22 -32 [place] 878481-09-24 07:59:00 Test Item Value Reference Range Interpretation Comments Calcium Lvl (test code = Calcium Lvl) 8.9 8.5-10.5 [facility]2021-09-24 07:59:00 Test Item Value Reference Range Interpretation Comments AGAP (test code = AGAP) 14.8 10.0-20.0 [place] 878481-09-24 07:59:00 Test Item Value Reference Range Interpretation Comments eGFR (test code = eGFR) 148 [facility]ressRwsqhpdDXRVNUTEJR2406-67-22 07:59:00 Test Item Value Reference Range Interpretation Comments WBC X 10x3 (test code = WBC X 10x3) 9.0 3.7-10.4 [place] 052861-09-24 07:59:00 Test Item Value Reference Range Interpretation Comments RBC (test code = RBC) 2.43 4.20-5.40 [place] 052861-09-24 07:59:00 Test Item Value Reference Range Interpretation Comments Hgb (test code = Hgb) 7.4 12.0-16.0 [place] 052861-09-24 07:59:00 Test Item Value Reference Range Interpretation Comments Hct (test code = Hct) 22.4 36.0-48.0 [place] 052861-09-24 07:59:00 Test Item Value Reference Range Interpretation Comments MCV (test code = MCV) 92.3 80.0-98.0 [place] 052861-09-24 07:59:00 Test Item Value Reference Range Interpretation Comments MCH (test code = MCH) 30.4 pg 27.0-31.0 [facility]ressCpvgyewUETWZGNIWU4810-53-75 07:59:00 Test Item Value Reference Range Interpretation Comments MCHC (test code = MCHC) 32.9 32.0-36.0 [facility] CypressXtjujnoWXUTUJKWQX7376-28-20 07:59:00 Test Item Value Reference Range Interpretation Comments RDW (test code = RDW) 16.1 11.5-14.5 [place] 052861-09-24 07:59:00 Test Item Value Reference Range Interpretation Comments Platelet (test code = Platelet) 411 686-450 [facility] CypressGddmmdpZAODBNUOPO8796-61-09 07:59:00 Test Item Value Reference Range Interpretation Comments MPV (test code = MPV) 7.3 7.4-10.4 [place] 052861-09-24 07:59:00 Test Item Value Reference Range Interpretation Comments Neutrophils # (test code = Neutrophils 6.4 1.5-8.1 #) [place] 052861-09-24 07:59:00 Test Item Value Reference Range Interpretation Comments Lymphocytes # (test code = Lymphocytes 1.7 1.0-5.5 #) [facility]ressYnxsmmmRCTTJHFBTZ1060-66-49 07:59:00 Test Item Value Reference Range Interpretation Comments Monocytes # (test code 0.4 See_Comment [Aut omated message] The = Monocytes #) system which generated this result tra nsmitted reference range : <=0.8. The reference r abdifatah was not used to int erpret this result as normal/abnormal . [facility] CypressKwgolwvPFJTYERHBD4224-77-93 07:59:00 Test Item Value Reference Range Interpretation Comments Eosinophils # (test code 0.4 See_Comment [A utomated message] The = Eosinophils #) system whic h generated this result tra nsmitted reference range : <=0.5. The reference r abdifatah was not used to int erpret this result as normal/abnormal . [facility] CypressJcvhasyZGVIHGQCFW9639-07-62 07:59:00 Test Item Value Reference Range Interpretation Comments Basophils # (test code 0.1 See_Comment [Aut omated message] The = Basophils #) system which generated this result tra nsmitted reference range : <=0.2. The reference r abdifatah was not used to int erpret this result as normal/abnormal . [facility] CypressPclsrciQRVZUSZWDG1150-19-18 07:59:00 Test Item Value Reference Range Interpretation Comments Segs (test code = Segs) 71.0 45.0-75.0 [facility] CypressWrjmalvNYNMHWBYHA7858-85-72 07:59:00 Test Item Value Reference Range Interpretation Comments Bands (test code = 0.0 See_Comment [Automat ed message] The Bands) system which ge nerated this result transmit gill reference range : <=11.0. The reference r abdifatah was not used to interpr et this result as len l/abnormal. [facility] CypressZculczhWTRWLHPTEI9107-98-67 07:59:00 Test Item Value Reference Range Interpretation Comments Lymphocytes (test code = Lymphocytes) 19.0 20.0-40.0 [facility] CypressGdyjflvUBAJQXQUBR3641-03-03 07:59:00 Test Item Value Reference Range Interpretation Comments Monocytes (test code = Monocytes) 5.0 2.0-12.0 [facility] CypressCdqfhzbBVLLTAASEM2787-30-83 07:59:00 Test Item Value Reference Range Interpretation Comments Eosinophils (test code = 4.0 See_Comment [A utomated message] The Eosinophils) system which ge nerated this result tra nsmitted reference range : <=4.0. The reference r adbifatah was not used to int erpret this result as normal/abnormal . [facility] CypressItorwszSABFAFYJTP4071-12-02 07:59:00 Test Item Value Reference Range Interpretation Comments Basophils (test code = 1.0 See_Comment [Aut omated message] The Basophils) system which ge nerated this result tra nsmitted reference range : <=1.0. The reference r abdifatah was not used to int erpret this result as normal/abnormal . [facility] CypressQmaufybYMUFICACEJ6993-88-18 07:59:00 Test Item Value Reference Range Interpretation Comments Atypical Lymphs (test code = Atypical 0.0 Lymphs) [facility] CypressCjhxgwbIXEWZESZNA8122-88-02 07:59:00 Test Item Value Reference Range Interpretation Comments Plt Morph (test code = Normal (01/19/21 2:59 Plt Morph) AM) [facility] CypressJmaoobwSOFQCLJNXT2337-99-79 07:59:00 Test Item Value Reference Range Interpretation Comments Tot Cell Ct (test code = Tot Cell Ct) 100 1 [facility] CypressIhyfohgICHMFDNVDY4235-01-32 07:59:00 Test Item Value Reference Range Interpretation Comments Anisocyte (test code = 1+ *ABN*(01/19/21 Anisocyte) 2:59 AM) [facility] CypressMcohppxRZQHCFHAUC5313-22-22 07:59:00 Test Item Value Reference Range Interpretation Comments Macrocyte (test code = 1+ *ABN*(01/19/21 Macrocyte) 2:59 AM) [facility] CypressZgcjvgtDYJCEOAPFP9699-80-68 07:59:00 Test Item Value Reference Range Interpretation Comments Hypochrom (test code = 1+ (01/19/21 2:59 AM) Hypochrom) [facility] CypressFktojftEPAUSQUKUL5884-70-02 07:59:00 Test Item Value Reference Range Interpretation Comments Polychrom (test code = Moderate *ABN*(01/19/21 Polychrom) 2:59 AM) [facility] CypressFzfdrbzKYDTMBJXNU8742-63-00 07:59:00 Test Item Value Reference Range Interpretation Comments Baso Stipplin (test code = Baso Occasional Stipplin) [facility] CenterNubehfoROHLKPLDUO9755-02-50 07:59:00 Test Item Value Reference Range Interpretation Comments Vancomycin AUC (test code = Vancomycin no gt AUC) [facility] CenterOjialxpMXDUGEENEBBQO0164-45-09 15:05:00 Test Item Value Reference Range Interpretation Comments hCG Tot (test code = hCG Tot) 2 [facility]YpeyunpRCYESMUEJBNIT2823-57-43 15:05:00 Test Item Value Reference Range Interpretation Comments hCG Tot (test code = hCG Tot) 2 [facility]2021-09-22 05:19:00 Test Item Value Reference Range Interpretation Comments CO2 (test code = CO2) 29 24-32 [facility]2021-09-22 05:19:00 Test Item Value Reference Range Interpretation Comments Calcium Lvl (test code = Calcium Lvl) 10.2 8.5-10.5 [facility]2021-09-22 05:19:00 Test Item Value Reference Range Interpretation Comments AGAP (test code = AGAP) 9.7 10.0-20.0 [facility]2021-09-22 05:19:00 Test Item Value Reference Range Interpretation Comments eGFR (test code = eGFR) 130 [facility]2021-09-22 05:19:00 Test Item Value Reference Range Interpretation Comments Magnesium Lvl (test code = Magnesium 2.1 1.8-2.4 Lvl) [facility]ressLicxkndFMARBLOHZE5418-52-40 05:19:00 Test Item Value Reference Range Interpretation Comments WBC (test code = WBC) 12.3 3.7-10.4 [facility] CypressHebbmvxLHMEHXBMCP4650-09-99 05:19:00 Test Item Value Reference Range Interpretation Comments RBC (test code = RBC) 2.60 4.20-5.40 [facility] CypressZueveveHIUSWUISDK4354-78-14 05:19:00 Test Item Value Reference Range Interpretation Comments Hgb (test code = Hgb) 7.9 12.0-16.0 [facility] CypressRqajdxoGOHIRPZUEL7112-53-54 05:19:00 Test Item Value Reference Range Interpretation Comments Hct (test code = Hct) 24.0 36.0-48.0 [place] 052861-09-22 05:19:00 Test Item Value Reference Range Interpretation Comments MCV (test code = MCV) 92.6 80.0-98.0 [place] 052861-09-22 05:19:00 Test Item Value Reference Range Interpretation Comments MCH (test code = MCH) 30.4 pg 27.0-31.0 [place] 052861-09-22 05:19:00 Test Item Value Reference Range Interpretation Comments MCHC (test code = MCHC) 32.9 32.0-36.0 [facility] CypressEuuhortZVZCZAQZWV2381-16-95 05:19:00 Test Item Value Reference Range Interpretation Comments RDW (test code = RDW) 16.0 11.5-14.5 [place] 052861-09-22 05:19:00 Test Item Value Reference Range Interpretation Comments Platelet (test code = Platelet) 703 133-450 [facility] CypressUykdvijSZOPLYPGVV3594-99-41 05:19:00 Test Item Value Reference Range Interpretation Comments MPV (test code = MPV) 7.3 7.4-10.4 [place] 052861-09-22 05:19:00 Test Item Value Reference Range Interpretation Comments Segs (test code = Segs) 76.3 45.0-75.0 [facility] CypressPivhbybZOZGQTFZSM7617-79-95 05:19:00 Test Item Value Reference Range Interpretation Comments Lymphocytes (test code = Lymphocytes) 13.0 20.0-40.0 [facility] CypressZvuxbmnYULZYFNCVQ6972-71-99 05:19:00 Test Item Value Reference Range Interpretation Comments Monocytes (test code = Monocytes) 6.9 2.0-12.0 [facility] CypressJxgslcvHSNCRYNOLJ9492-08-01 05:19:00 Test Item Value Reference Range Interpretation Comments Eosinophils (test code = 3.1 See_Comment [A utomated message] The Eosinophils) system which ge nerated this result tra nsmitted reference range : <=4.0. The reference r abdifatah was not used to int erpret this result as normal/abnormal . [facility] CypressGtdddhuDGCNRXVOZC4111-94-13 05:19:00 Test Item Value Reference Range Interpretation Comments Basophils (test code = 0.7 See_Comment [Aut omated message] The Basophils) system which ge nerated this result tra nsmitted reference range : <=1.0. The reference r abdifatah was not used to int erpret this result as normal/abnormal . [facility] CypressEudsadhHJJWGZQHLC0848-33-58 05:19:00 Test Item Value Reference Range Interpretation Comments Neutrophils # (test code = Neutrophils 9.3 1.5-8.1 #) [facility] CypressZsuvdfnVZOBBUKPYT6583-34-08 05:19:00 Test Item Value Reference Range Interpretation Comments Lymphocytes # (test code = Lymphocytes 1.6 1.0-5.5 #) [facility] CypressNowltxaRVGKBFZQDO7110-43-37 05:19:00 Test Item Value Reference Range Interpretation Comments Monocytes # (test code 0.8 See_Comment [Aut omated message] The = Monocytes #) system which generated this result tra nsmitted reference range : <=0.8. The reference r abdifatah was not used to int erpret this result as normal/abnormal . [facility] CypressQqyikgzQWTFLECDJS9566-70-01 05:19:00 Test Item Value Reference Range Interpretation Comments Eosinophils # (test code 0.4 See_Comment [A utomated message] The = Eosinophils #) system whic h generated this result tra nsmitted reference range : <=0.5. The reference r abdifatah was not used to int erpret this result as normal/abnormal . [place] 052861-09-22 05:19:00 Test Item Value Reference Range Interpretation Comments Basophils # (test code 0.1 See_Comment [Aut omated message] The = Basophils #) system which generated this result tra nsmitted reference range : <=0.2. The reference r abdifatah was not used to int erpret this result as normal/abnormal . [facility]2021-09-22 05:19:00 Test Item Value Reference Range Interpretation Comments Glucose Lvl (test code = Glucose Lvl) 131 70-99 [place] 878481-09-22 05:19:00 Test Item Value Reference Range Interpretation Comments BUN (test code = BUN) 21 7-22 [place] 878481-09-22 05:19:00 Test Item Value Reference Range Interpretation Comments Creatinine Lvl (test code = Creatinine 0.29 0.50-1.40 Lvl) [place] 878481-09-22 05:19:00 Test Item Value Reference Range Interpretation Comments Sodium Lvl (test code = Sodium Lvl) 142 135-145 [place] 878481-09-22 05:19:00 Test Item Value Reference Range Interpretation Comments Potassium Lvl (test code = Potassium 4.7 3.5-5.1 Lvl) [place] 878481-09-22 05:19:00 Test Item Value Reference Range Interpretation Comments Chloride Lvl (test code = Chloride Lvl) 108 95-109 [place] 878481-09-22 05:19:00 Test Item Value Reference Range Interpretation Comments CO2 (test code = CO2) 29 24-32 [place] 878481-09-22 05:19:00 Test Item Value Reference Range Interpretation Comments Calcium Lvl (test code = Calcium Lvl) 10.2 8.5-10.5 [place] 878481-09-22 05:19:00 Test Item Value Reference Range Interpretation Comments AGAP (test code = AGAP) 9.7 10.0-20.0 [place] 878481-09-22 05:19:00 Test Item Value Reference Range Interpretation Comments eGFR (test code = eGFR) 130 [facility]2021-09-22 05:19:00 Test Item Value Reference Range Interpretation Comments Magnesium Lvl (test code = Magnesium 2.1 1.8-2.4 Lvl) [place] 052861-09-22 05:19:00 Test Item Value Reference Range Interpretation Comments WBC (test code = WBC) 12.3 3.7-10.4 [place] 052861-09-22 05:19:00 Test Item Value Reference Range Interpretation Comments RBC (test code = RBC) 2.60 4.20-5.40 [place] 052861-09-22 05:19:00 Test Item Value Reference Range Interpretation Comments Hgb (test code = Hgb) 7.9 12.0-16.0 [place] 052861-09-22 05:19:00 Test Item Value Reference Range Interpretation Comments Hct (test code = Hct) 24.0 36.0-48.0 [place] 052861-09-22 05:19:00 Test Item Value Reference Range Interpretation Comments MCV (test code = MCV) 92.6 80.0-98.0 [place] 052861-09-22 05:19:00 Test Item Value Reference Range Interpretation Comments MCH (test code = MCH) 30.4 pg 27.0-31.0 [place] 052861-09-22 05:19:00 Test Item Value Reference Range Interpretation Comments MCHC (test code = MCHC) 32.9 32.0-36.0 [place] 052861-09-22 05:19:00 Test Item Value Reference Range Interpretation Comments RDW (test code = RDW) 16.0 11.5-14.5 [place] 052861-09-22 05:19:00 Test Item Value Reference Range Interpretation Comments Platelet (test code = Platelet) 703 346-450 [place] 052861-09-22 05:19:00 Test Item Value Reference Range Interpretation Comments MPV (test code = MPV) 7.3 7.4-10.4 [place] 052861-09-22 05:19:00 Test Item Value Reference Range Interpretation Comments Segs (test code = Segs) 76.3 45.0-75.0 [place] 052861-09-22 05:19:00 Test Item Value Reference Range Interpretation Comments Lymphocytes (test code = Lymphocytes) 13.0 20.0-40.0 [place] 052861-09-22 05:19:00 Test Item Value Reference Range Interpretation Comments Monocytes (test code = Monocytes) 6.9 2.0-12.0 [place] 052861-09-22 05:19:00 Test Item Value Reference Range Interpretation Comments Eosinophils (test code = 3.1 See_Comment [A utomated message] The Eosinophils) system which ge nerated this result tra nsmitted reference range : <=4.0. The reference r abdifatah was not used to int erpret this result as normal/abnormal . [place] 052861-09-22 05:19:00 Test Item Value Reference Range Interpretation Comments Basophils (test code = 0.7 See_Comment [Aut omated message] The Basophils) system which ge nerated this result tra nsmitted reference range : <=1.0. The reference r abdifatah was not used to int erpret this result as normal/abnormal . [facility]ressIsqpvkdQMSJOTQHAU8109-24-90 05:19:00 Test Item Value Reference Range Interpretation Comments Neutrophils # (test code = Neutrophils 9.3 1.5-8.1 #) [facility] CypressRihefnlCVZYJIMIJV3572-86-59 05:19:00 Test Item Value Reference Range Interpretation Comments Lymphocytes # (test code = Lymphocytes 1.6 1.0-5.5 #) [place] 052861-09-22 05:19:00 Test Item Value Reference Range Interpretation Comments Monocytes # (test code 0.8 See_Comment [Aut omated message] The = Monocytes #) system which generated this result tra nsmitted reference range : <=0.8. The reference r abdifatah was not used to int erpret this result as normal/abnormal . [facility] CypressLoudffkWSGABEXYZK2643-49-51 05:19:00 Test Item Value Reference Range Interpretation Comments Eosinophils # (test code 0.4 See_Comment [A utomated message] The = Eosinophils #) system whic h generated this result tra nsmitted reference range : <=0.5. The reference r abdifatah was not used to int erpret this result as normal/abnormal . [facility]ressSvmsfhdUXRKMHCTJI5358-93-00 05:19:00 Test Item Value Reference Range Interpretation Comments Basophils # (test code 0.1 See_Comment [Aut omated message] The = Basophils #) system which generated this result tra nsmitted reference range : <=0.2. The reference r abdifatah was not used to int erpret this result as normal/abnormal . [facility]2021-09-22 05:19:00 Test Item Value Reference Range Interpretation Comments Glucose Lvl (test code = Glucose Lvl) 131 70-99 [facility]2021-09-22 05:19:00 Test Item Value Reference Range Interpretation Comments BUN (test code = BUN) 21 7-22 [place] 878481-09-22 05:19:00 Test Item Value Reference Range Interpretation Comments Creatinine Lvl (test code = Creatinine 0.29 0.50-1.40 Lvl) [facility]2021-09-22 05:19:00 Test Item Value Reference Range Interpretation Comments Sodium Lvl (test code = Sodium Lvl) 142 135-145 [place] 878481-09-22 05:19:00 Test Item Value Reference Range Interpretation Comments Potassium Lvl (test code = Potassium 4.7 3.5-5.1 Lvl) [place] 878481-09-22 05:19:00 Test Item Value Reference Range Interpretation Comments Chloride Lvl (test code = Chloride Lvl) 108 95-109 [place] 878481-09-21 10:16:00 Test Item Value Reference Range Interpretation Comments Magnesium Lvl (test code = Magnesium 2.4 1.8-2.4 Lvl) [place] 878481-09-21 10:16:00 Test Item Value Reference Range Interpretation Comments Glucose Lvl (test code = Glucose Lvl) 152 70-99 [place] 878481-09-21 10:16:00 Test Item Value Reference Range Interpretation Comments BUN (test code = BUN) 20 7-22 [facility]2021-09-21 10:16:00 Test Item Value Reference Range Interpretation Comments Creatinine Lvl (test code = Creatinine 0.36 0.50-1.40 Lvl) [facility]2021-09-21 10:16:00 Test Item Value Reference Range Interpretation Comments Sodium Lvl (test code = Sodium Lvl) 143 135-145 [place] 878481-09-21 10:16:00 Test Item Value Reference Range Interpretation Comments Potassium Lvl (test code = Potassium 4.4 3.5-5.1 Lvl) [facility]2021-09-21 10:16:00 Test Item Value Reference Range Interpretation Comments Chloride Lvl (test code = Chloride Lvl) 110 95-109 [facility]2021-09-21 10:16:00 Test Item Value Reference Range Interpretation Comments CO2 (test code = CO2) 28 24-32 [place] 878481-09-21 10:16:00 Test Item Value Reference Range Interpretation Comments Calcium Lvl (test code = Calcium Lvl) 10.2 8.5-10.5 [facility]2021-09-21 10:16:00 Test Item Value Reference Range Interpretation Comments AGAP (test code = AGAP) 9.4 10.0-20.0 [facility]2021-09-21 10:16:00 Test Item Value Reference Range Interpretation Comments eGFR (test code = eGFR) 122 [place] 052861-09-21 10:16:00 Test Item Value Reference Range Interpretation Comments Segs (test code = Segs) 82.5 45.0-75.0 [place] 052861-09-21 10:16:00 Test Item Value Reference Range Interpretation Comments Lymphocytes (test code = Lymphocytes) 8.4 20.0-40.0 [place] 052861-09-21 10:16:00 Test Item Value Reference Range Interpretation Comments Monocytes (test code = Monocytes) 6.3 2.0-12.0 [facility] CypressBepaxkyMDMILIYXHO9167-27-74 10:16:00 Test Item Value Reference Range Interpretation Comments Eosinophils (test code = 2.5 See_Comment [A utomated message] The Eosinophils) system which ge nerated this result tra nsmitted reference range : <=4.0. The reference r abdifatah was not used to int erpret this result as normal/abnormal . [facility] CypressFmwedmhKAOHXPMBIQ9443-55-04 10:16:00 Test Item Value Reference Range Interpretation Comments Basophils (test code = 0.3 See_Comment [Aut omated message] The Basophils) system which ge nerated this result tra nsmitted reference range : <=1.0. The reference r abdifatah was not used to int erpret this result as normal/abnormal . [facility] CypressNphfgktBCPHTTVEEA3976-80-65 10:16:00 Test Item Value Reference Range Interpretation Comments Neutrophils # (test code = Neutrophils 10.8 1.5-8.1 #) [facility] CypressLdwfqueGWMSVEOMJM6849-73-03 10:16:00 Test Item Value Reference Range Interpretation Comments Lymphocytes # (test code = Lymphocytes 1.1 1.0-5.5 #) [facility] CypressQnslyqwLTLKLKITXK9019-41-82 10:16:00 Test Item Value Reference Range Interpretation Comments Monocytes # (test code 0.8 See_Comment [Aut omated message] The = Monocytes #) system which generated this result tra nsmitted reference range : <=0.8. The reference r abdifatah was not used to int erpret this result as normal/abnormal . [facility]ressEklvyfjEHIZBRBDSW3828-65-71 10:16:00 Test Item Value Reference Range Interpretation Comments Eosinophils # (test code 0.3 See_Comment [A utomated message] The = Eosinophils #) system whic h generated this result tra nsmitted reference range : <=0.5. The reference r abdifatah was not used to int erpret this result as normal/abnormal . [facility] CypressGpdoyypQATGXIMDWG1282-27-91 10:16:00 Test Item Value Reference Range Interpretation Comments WBC (test code = WBC) 13.0 3.7-10.4 [facility] CypressTcbriacJFNMCTRUMO9857-91-02 10:16:00 Test Item Value Reference Range Interpretation Comments RBC (test code = RBC) 2.42 4.20-5.40 [place] 052861-09-21 10:16:00 Test Item Value Reference Range Interpretation Comments Hgb (test code = Hgb) 7.4 12.0-16.0 [place] 052861-09-21 10:16:00 Test Item Value Reference Range Interpretation Comments Hct (test code = Hct) 22.1 36.0-48.0 [place] 052861-09-21 10:16:00 Test Item Value Reference Range Interpretation Comments MCV (test code = MCV) 91.3 80.0-98.0 [place] 052861-09-21 10:16:00 Test Item Value Reference Range Interpretation Comments MCH (test code = MCH) 30.7 pg 27.0-31.0 [place] 052861-09-21 10:16:00 Test Item Value Reference Range Interpretation Comments MCHC (test code = MCHC) 33.6 32.0-36.0 [place] 052861-09-21 10:16:00 Test Item Value Reference Range Interpretation Comments RDW (test code = RDW) 15.7 11.5-14.5 [place] 052861-09-21 10:16:00 Test Item Value Reference Range Interpretation Comments Platelet (test code = Platelet) 336 971-450 [facility] CypressAsqexniINMVSYOWLC2802-83-44 10:16:00 Test Item Value Reference Range Interpretation Comments MPV (test code = MPV) 7.2 7.4-10.4 [facility]2021-09-21 10:16:00 Test Item Value Reference Range Interpretation Comments Magnesium Lvl (test code = Magnesium 2.4 1.8-2.4 Lvl) [facility]2021-09-21 10:16:00 Test Item Value Reference Range Interpretation Comments Glucose Lvl (test code = Glucose Lvl) 152 70-99 [facility]2021-09-21 10:16:00 Test Item Value Reference Range Interpretation Comments BUN (test code = BUN) 20 7-22 [facility]2021-09-21 10:16:00 Test Item Value Reference Range Interpretation Comments Creatinine Lvl (test code = Creatinine 0.36 0.50-1.40 Lvl) [facility]2021-09-21 10:16:00 Test Item Value Reference Range Interpretation Comments Sodium Lvl (test code = Sodium Lvl) 143 135-145 [place] 878481-09-21 10:16:00 Test Item Value Reference Range Interpretation Comments Potassium Lvl (test code = Potassium 4.4 3.5-5.1 Lvl) [place] 878481-09-21 10:16:00 Test Item Value Reference Range Interpretation Comments Chloride Lvl (test code = Chloride Lvl) 110 95-109 [place] 878481-09-21 10:16:00 Test Item Value Reference Range Interpretation Comments CO2 (test code = CO2) 28 24-32 [place] 878481-09-21 10:16:00 Test Item Value Reference Range Interpretation Comments Calcium Lvl (test code = Calcium Lvl) 10.2 8.5-10.5 [place] 878481-09-21 10:16:00 Test Item Value Reference Range Interpretation Comments AGAP (test code = AGAP) 9.4 10.0-20.0 [place] 878481-09-21 10:16:00 Test Item Value Reference Range Interpretation Comments eGFR (test code = eGFR) 122 [facility] CypressJbruigsWKOCABXWUX3475-70-65 10:16:00 Test Item Value Reference Range Interpretation Comments Segs (test code = Segs) 82.5 45.0-75.0 [place] 052861-09-21 10:16:00 Test Item Value Reference Range Interpretation Comments Lymphocytes (test code = Lymphocytes) 8.4 20.0-40.0 [place] 052861-09-21 10:16:00 Test Item Value Reference Range Interpretation Comments Monocytes (test code = Monocytes) 6.3 2.0-12.0 [place] 052861-09-21 10:16:00 Test Item Value Reference Range Interpretation Comments Eosinophils (test code = 2.5 See_Comment [A utomated message] The Eosinophils) system which ge nerated this result tra nsmitted reference range : <=4.0. The reference r abdifatah was not used to int erpret this result as normal/abnormal . [place] 052861-09-21 10:16:00 Test Item Value Reference Range Interpretation Comments Basophils (test code = 0.3 See_Comment [Aut omated message] The Basophils) system which ge nerated this result tra nsmitted reference range : <=1.0. The reference r abdifatah was not used to int erpret this result as normal/abnormal . [facility] CypressUkbhiwiNNTNCPOGJN2707-15-24 10:16:00 Test Item Value Reference Range Interpretation Comments Neutrophils # (test code = Neutrophils 10.8 1.5-8.1 #) [facility] CypressCnonjzbUHRCPNJUDN7102-43-84 10:16:00 Test Item Value Reference Range Interpretation Comments Lymphocytes # (test code = Lymphocytes 1.1 1.0-5.5 #) [place] 052861-09-21 10:16:00 Test Item Value Reference Range Interpretation Comments Monocytes # (test code 0.8 See_Comment [Aut omated message] The = Monocytes #) system which generated this result tra nsmitted reference range : <=0.8. The reference r abdifatah was not used to int erpret this result as normal/abnormal . [facility] CypressPgdgkssJGOWXANIST2685-62-37 10:16:00 Test Item Value Reference Range Interpretation Comments Eosinophils # (test code 0.3 See_Comment [A utomated message] The = Eosinophils #) system whic h generated this result tra nsmitted reference range : <=0.5. The reference r abdifatah was not used to int erpret this result as normal/abnormal . [facility] CypressBxkxsagQPBSJOQDBA4363-25-44 10:16:00 Test Item Value Reference Range Interpretation Comments WBC (test code = WBC) 13.0 3.7-10.4 [facility] CypressIznsvsjOJLYUQBYHD6990-73-00 10:16:00 Test Item Value Reference Range Interpretation Comments RBC (test code = RBC) 2.42 4.20-5.40 [place] 052861-09-21 10:16:00 Test Item Value Reference Range Interpretation Comments Hgb (test code = Hgb) 7.4 12.0-16.0 [place] 052861-09-21 10:16:00 Test Item Value Reference Range Interpretation Comments Hct (test code = Hct) 22.1 36.0-48.0 [place] 052861-09-21 10:16:00 Test Item Value Reference Range Interpretation Comments MCV (test code = MCV) 91.3 80.0-98.0 [place] 052861-09-21 10:16:00 Test Item Value Reference Range Interpretation Comments MCH (test code = MCH) 30.7 pg 27.0-31.0 [facility]dxojujNUNAIBSNHJ5552-59-75 10:16:00 Test Item Value Reference Range Interpretation Comments MCHC (test code = MCHC) 33.6 32.0-36.0 [facility]intWbygjqqTWCWCMRBOE9773-12-82 10:16:00 Test Item Value Reference Range Interpretation Comments RDW (test code = RDW) 15.7 11.5-14.5 [facility]intJjvwhcePOWWIBAIBF0437-50-28 10:16:00 Test Item Value Reference Range Interpretation Comments Platelet (test code = Platelet) 639 279-115 [facility]intHmpbecuOXSIYEIGSJ6546-52-46 10:16:00 Test Item Value Reference Range Interpretation Comments MPV (test code = MPV) 7.2 7.4-10.4 [facility] CypressJgegfziSLBYKLCAPP7253-27-72 16:50:00 Test Item Value Reference Range Interpretation Comments PT (test code = PT) 12.8 s 12.0-14.7 [facility]intSaulvdsXUYKLYKMLW6434-42-73 16:50:00 Test Item Value Reference Range Interpretation Comments INR (test code = INR) 0.97 1 0.85-1.17 [facility]intVxgzglkDMBVNGWYAP6658-60-34 16:50:00 Test Item Value Reference Range Interpretation Comments PTT (test code = PTT) 37.3 s 22.9-35.8 [facility]FlintQrtussnPNXGPZQKMK1438-57-11 16:50:00 Test Item Value Reference Range Interpretation Comments PT (test code = PT) 12.8 s 12.0-14.7 [facility]intWjefhwkFKOWNRDYDS9852-37-87 16:50:00 Test Item Value Reference Range Interpretation Comments INR (test code = INR) 0.97 1 0.85-1.17 [facility]intDqqrstcGFQDUAUJFX3794-34-14 16:50:00 Test Item Value Reference Range Interpretation Comments PTT (test code = PTT) 37.3 s 22.9-35.8 [facility] [id number] 10:34:00 Test Item Value Reference Range Interpretation Comments Culture: Urine (test <10,000 CFU/mL Skin code = Culture: Urine) [facility] [id number] 10:34:00 Test Item Value Reference Range Interpretation Comments Culture: Urine (test <10,000 CFU/mL Skin code = Culture: Urine) [facility] AND [id number] 09:58:00 Test Item Value Reference Range Interpretation Comments UA Color (test code = Yellow *NA*(01/15/21 UA Color) 4:58 AM) [facility] AND [id number] 09:58:00 Test Item Value Reference Range Interpretation Comments UA Turbidity (test code Slight *ABN*(01/15/21 = UA Turbidity) 4:58 AM) [facility] AND [id number] 09:58:00 Test Item Value Reference Range Interpretation Comments UA Spec Grav (test code = UA Spec 1.021 1 Grav) [facility] AND [id number] 09:58:00 Test Item Value Reference Range Interpretation Comments UA pH (test code = UA pH) 7.0 1 5.0-8.0 [facility] AND [id number] 09:58:00 Test Item Value Reference Range Interpretation Comments UA Protein (test code = UA Negative mg/dL Protein) [facility] AND [id number] 09:58:00 Test Item Value Reference Range Interpretation Comments UA Glucose (test code = UA Negative mg/dL Glucose) [facility] AND [id number] 09:58:00 Test Item Value Reference Range Interpretation Comments UA Ketones (test code = UA Negative mg/dL Ketones) [facility] AND [id number] 09:58:00 Test Item Value Reference Range Interpretation Comments UA Bili (test code = Negative *NA*(01/15/21 UA Bili) 4:58 AM) [facility] AND [id number] 09:58:00 Test Item Value Reference Range Interpretation Comments UA Blood (test code = Negative (01/15/21 4:58 UA Blood) AM) [facility] AND [id number] 09:58:00 Test Item Value Reference Range Interpretation Comments UA Urobilinogen (test code = UA 4.0 0.1-1.0 Urobilinogen) [facility] AND [id number] 09:58:00 Test Item Value Reference Range Interpretation Comments UA Nitrite (test code Negative (01/15/21 4:58 = [facility]A Nitrite) AM) [facility] [id number] 09:58:00 Test Item Value Reference Range Interpretation Comments UA Leuk Est (test Moderate *ABN*(01/15/21 code = UA Leuk Est) 4:58 AM) [facility] [id number] 09:58:00 Test Item Value Reference Range Interpretation Comments UA Sq Epi (test code = UA Sq Occasional /LPF Epi) [facility] [id number] 09:58:00 Test Item Value Reference Range Interpretation Comments UA WBC (test code = 57 See_Comment [Automa gill message] The UA WBC) system which ge nerated this result transmit gill reference range : <=5. The reference range was not used to interpr et this result as len l/abnormal. [facility] [id number] 09:58:00 Test Item Value Reference Range Interpretation Comments UA RBC (test code = 3 See_Comment [Automa gill message] The UA RBC) system which ge nerated this result transmit gill reference range : <=2. The reference range was not used to interpr et this result as len l/abnormal. [facility] [id number] 09:58:00 Test Item Value Reference Range Interpretation Comments UA Bacteria (test code = UA Occasional /HPF Bacteria) [facility] [id number] 09:58:00 Test Item Value Reference Range Interpretation Comments UA Mucus (test code = UA Mucus) Few /LPF [facility] [id number] 09:58:00 Test Item Value Reference Range Interpretation Comments UA Hyal Cast (test 1 See_Comment [Automat ed message] The code = UA Hyal Cast) system which generated this result transmit gill reference range : <=2. The reference range was not used to interpr et this result as len l/abnormal. [facility] [id number] 09:58:00 Test Item Value Reference Range Interpretation Comments UA Trans Epi (test code = UA Trans Epi) 4 [facility] [id number] 09:58:00 Test Item Value Reference Range Interpretation Comments UA Color (test code = Yellow *NA*(01/15/21 UA Color) 4:58 AM) [facility] [id number] 09:58:00 Test Item Value Reference Range Interpretation Comments UA Turbidity (test code Slight *ABN*(01/15/21 = UA Turbidity) 4:58 AM) [facility] AND [id number] 09:58:00 Test Item Value Reference Range Interpretation Comments UA Spec Grav (test code = UA Spec 1.021 1 Grav) [facility] AND [id number] 09:58:00 Test Item Value Reference Range Interpretation Comments UA pH (test code = UA pH) 7.0 1 5.0-8.0 [facility] AND [id number] 09:58:00 Test Item Value Reference Range Interpretation Comments UA Protein (test code = UA Negative mg/dL Protein) [facility] AND [id number] 09:58:00 Test Item Value Reference Range Interpretation Comments UA Glucose (test code = UA Negative mg/dL Glucose) [facility] AND [id number] 09:58:00 Test Item Value Reference Range Interpretation Comments UA Ketones (test code = UA Negative mg/dL Ketones) [facility] AND [id number] 09:58:00 Test Item Value Reference Range Interpretation Comments UA Bili (test code = Negative *NA*(01/15/21 UA Bili) 4:58 AM) [facility] AND [id number] 09:58:00 Test Item Value Reference Range Interpretation Comments UA Blood (test code = Negative (01/15/21 4:58 UA Blood) AM) [facility] AND [id number] 09:58:00 Test Item Value Reference Range Interpretation Comments UA Urobilinogen (test code = UA 4.0 0.1-1.0 Urobilinogen) [facility] AND [id number] 09:58:00 Test Item Value Reference Range Interpretation Comments UA Nitrite (test code Negative (01/15/21 4:58 = UA Nitrite) AM) [facility] AND [id number] 09:58:00 Test Item Value Reference Range Interpretation Comments UA Leuk Est (test Moderate *ABN*(01/15/21 code = UA Leuk Est) 4:58 AM) [facility] AND [id number] 09:58:00 Test Item Value Reference Range Interpretation Comments UA Sq Epi (test code = UA Sq Occasional /LPF Epi) [facility] AND [id number] 09:58:00 Test Item Value Reference Range Interpretation Comments UA WBC (test code = 57 See_Comment [Automa gill message] The UA WBC) system which ge nerated this result transmit gill reference range : <=5. The reference range was not used to interpr et this result as len l/abnormal. [facility] AND [id number] 09:58:00 Test Item Value Reference Range Interpretation Comments UA RBC (test code = 3 See_Comment [Automa gill message] The UA RBC) system which ge nerated this result transmit gill reference range : <=2. The reference range was not used to interpr et this result as len l/abnormal. [facility] AND [id number] 09:58:00 Test Item Value Reference Range Interpretation Comments UA Bacteria (test code = UA Occasional /HPF Bacteria) [facility] AND [id number] 09:58:00 Test Item Value Reference Range Interpretation Comments UA Mucus (test code = UA Mucus) Few /LPF [facility] AND [id number] 09:58:00 Test Item Value Reference Range Interpretation Comments UA Hyal Cast (test 1 See_Comment [Automat ed message] The code = UA Hyal Cast) system which generated this result transmit gill reference range : <=2. The reference range was not used to interpr et this result as len l/abnormal. [facility] AND [id number] 09:58:00 Test Item Value Reference Range Interpretation Comments UA Trans Epi (test code = UA Trans Epi) 4 [facility] CenterIkgptheADSVYKMZAE9046-92-06 09:47:00 Test Item Value Reference Range Interpretation Comments Coronavirus (COVID-19) Not Detected (01/15/21 KASSY (test code = 4:47 AM) Coronavirus (COVID-19) KASSY) [facility] CenterCfnpsxlBEZXFEIBSA4090-52-64 09:47:00 Test Item Value Reference Range Interpretation Comments Coronavirus (COVID-19) Not Detected (01/15/21 KASSY (test code = 4:47 AM) Coronavirus (COVID-19) KASSY) [facility] [id number] 09:31:00 Test Item Value Reference Range Interpretation Comments ABO/Rh (test code = ABO/Rh) A POS [facility] [employer] [id number] 09:31:00 Test Item Value Reference Range Interpretation Comments Antibody Scrn (test Negative (01/15/21 4:31 code = Antibody Scrn) AM) [facility] [employer]) [id number] 09:31:00 Test Item Value Reference Range Interpretation Comments Magnesium Lvl (test code = Magnesium 2.2 1.8-2.4 Lvl) [facility] CenterRoexmazOJCSHLOLEF3055-35-31 09:31:00 Test Item Value Reference Range Interpretation Comments PT (test code = PT) 12.9 s 12.0-14.7 [facility]iimhblUHVXIQVUAO9672-01-56 09:31:00 Test Item Value Reference Range Interpretation Comments INR (test code = INR) 0.98 1 0.85-1.17 [facility] CenterHkdkhoyNYNWLLZVEX7483-12-61 09:31:00 Test Item Value Reference Range Interpretation Comments PTT (test code = PTT) 38.9 s 22.9-35.8 [facility] CenterHaiouhbRAQFESLNSI3717-44-06 09:31:00 Test Item Value Reference Range Interpretation Comments Basophils # (test code 0.1 See_Comment [Aut omated message] The = Basophils #) system which generated this result tra nsmitted reference range : <=0.2. The reference r abdifatah was not used to int erpret this result as normal/abnormal . [facility] [id number] 09:31:00 Test Item Value Reference Range Interpretation Comments ABO/Rh (test code = ABO/Rh) A POS [facility] [employer] [facility] [id number] 09:31:00 Test Item Value Reference Range Interpretation Comments Antibody Scrn (test Negative (01/15/21 4:31 code = Antibody Scrn) AM) [facility] [employer] ([employer]) [id number] 09:31:00 Test Item Value Reference Range Interpretation Comments Magnesium Lvl (test code = Magnesium 2.2 1.8-2.4 Lvl) [facility] CenterLypdcjoEZZVJXQWPC9956-20-35 09:31:00 Test Item Value Reference Range Interpretation Comments PT (test code = PT) 12.9 s 12.0-14.7 [facility] CenterTajcxhcOTBUCUPPMK2563-85-33 09:31:00 Test Item Value Reference Range Interpretation Comments INR (test code = INR) 0.98 1 0.85-1.17 [facility]ressUocvhdpHBDXQGNWDI2774-61-67 09:31:00 Test Item Value Reference Range Interpretation Comments PTT (test code = PTT) 38.9 s 22.9-35.8 [facility] CypressRgaqsnjSRFKLMRPCV8019-47-84 09:31:00 Test Item Value Reference Range Interpretation Comments Basophils # (test code 0.1 See_Comment [Aut omated message] The = Basophils #) system which generated this result tra nsmitted reference range : <=0.2. The reference r abdifatah was not used to int erpret this result as normal/abnormal . [facility] CypressCuuinceJDUGJVLEQD2700-06-22 01:28:00 Test Item Value Reference Range Interpretation Comments PT (test code = PT) 12.6 s 12.0-14.7 [facility] CypressTxvxhdwCKIVLKPDWU2519-52-82 01:28:00 Test Item Value Reference Range Interpretation Comments INR (test code = INR) 0.95 1 0.85-1.17 [facility] CypressPqmpfjnPEQUCUIQDJ9859-03-23 01:28:00 Test Item Value Reference Range Interpretation Comments PTT (test code = PTT) 51.1 s 22.9-35.8 [facility] CypressFixtnvrTVKXMXPHBH8034-82-95 01:28:00 Test Item Value Reference Range Interpretation Comments PT (test code = PT) 12.6 s 12.0-14.7 [facility] CypressRqbgifjZOFKHCOMHN4313-58-34 01:28:00 Test Item Value Reference Range Interpretation Comments INR (test code = INR) 0.95 1 0.85-1.17 [facility] CypressVxbxrvkLQEVQTEQSM7186-45-66 01:28:00 Test Item Value Reference Range Interpretation Comments PTT (test code = PTT) 51.1 s 22.9-35.8 [facility] CenterPzmcwthWPMEMNQVEU0585-88-25 09:57:00 Test Item Value Reference Range Interpretation Comments Vancomycin AUC (test code = Vancomycin 20.2 AUC) [facility]irc[facility]zcIPDFGDEGJG3544-09-[facility] 09:57:00 Test Item Value Reference Range Interpretation Comments Vancomycin AUC (test code = Vancomycin 20.2 AUC) [facility] CypressBhlnknlXCZQCAQCWB9095-43-22 11:35:00 Test Item Value Reference Range Interpretation Comments Bands (test code = 0.0 See_Comment [Automat ed message] The Bands) system which ge nerated this result transmit gill reference range : <=11.0. The reference r abdifatah was not used to interpr et this result as len l/abnormal. [facility] CypressEsyzjdcYDJZTUNYEV2282-97-82 11:35:00 Test Item Value Reference Range Interpretation Comments Metamyelocytes (test code 1.0 See_Comment [ Automated message] = Metamyelocytes) The system which generated this result transmitted ref erence range: <=1.0. T he reference range was not used to int erpret this result as normal/abnormal . [place] 052861-09-18 11:35:00 Test Item Value Reference Range Interpretation Comments Myelocytes (test code = Myelocytes) 5.0 [place] 052861-09-18 11:35:00 Test Item Value Reference Range Interpretation Comments Atypical Lymphs (test code = Atypical 0.0 Lymphs) [place] 052861-09-18 11:35:00 Test Item Value Reference Range Interpretation Comments NRBC (test code = NRBC) 1 [place] 052861-09-18 11:35:00 Test Item Value Reference Range Interpretation Comments Anisocyte (test code = 1+ *ABN*(01/13/21 Anisocyte) 6:35 AM) [place] 052861-09-18 11:35:00 Test Item Value Reference Range Interpretation Comments Macrocyte (test code = 1+ *ABN*(01/13/21 Macrocyte) 6:35 AM) [place] 052861-09-18 11:35:00 Test Item Value Reference Range Interpretation Comments Polychrom (test code = Moderate *ABN*(01/13/21 Polychrom) 6:35 AM) [place] 47[address]-09-18 11:35:00 Test Item Value Reference Range Interpretation Comments Bands (test code = 0.0 See_Comment [Automat ed message] The Bands) system which ge nerated this result transmit gill reference range : <=11.0. The reference r abdifatah was not used to interpr et this result as len l/abnormal. [place] 052861-09-18 11:35:00 Test Item Value Reference Range Interpretation Comments Metamyelocytes (test code 1.0 See_Comment [ Automated message] = Metamyelocytes) The system which generated this result transmitted ref erence range: <=1.0. T he reference range was not used to int erpret this result as normal/abnormal . [facility] CypressHzkydrgRKTVDBZYGF4079-37-82 11:35:00 Test Item Value Reference Range Interpretation Comments Myelocytes (test code = Myelocytes) 5.0 [place] 052861-09-18 11:35:00 Test Item Value Reference Range Interpretation Comments Atypical Lymphs (test code = Atypical 0.0 Lymphs) [place] 052861-09-18 11:35:00 Test Item Value Reference Range Interpretation Comments NRBC (test code = NRBC) 1 [place] 052861-09-18 11:35:00 Test Item Value Reference Range Interpretation Comments Anisocyte (test code = 1+ *ABN*(01/13/21 Anisocyte) 6:35 AM) [facility] CypressBhfxnmnVDRLLWAMRJ8981-74-22 11:35:00 Test Item Value Reference Range Interpretation Comments Macrocyte (test code = 1+ *ABN*(01/13/21 Macrocyte) 6:35 AM) [facility] CypressDuzuqkqKQOVPRICCR3273-43-39 11:35:00 Test Item Value Reference Range Interpretation Comments Polychrom (test code = Moderate *ABN*(01/13/21 Polychrom) 6:35 AM) [place] 052861-09-17 05:12:00 Test Item Value Reference Range Interpretation Comments Bands (test code = 2.0 See_Comment [Automat ed message] The Bands) system which ge nerated this result transmit gill reference range : <=11.0. The reference r abdifatah was not used to interpr et this result as len l/abnormal. [place] 052861-09-17 05:12:00 Test Item Value Reference Range Interpretation Comments Metamyelocytes (test code 4.0 See_Comment [ Automated message] = Metamyelocytes) The system which generated this result transmitted ref erence range: <=1.0. T he reference range was not used to int erpret this result as normal/abnormal . [facility]XkqptrwZOEHTKHHAQ3790-87-34 05:12:00 Test Item Value Reference Range Interpretation Comments Myelocytes (test code = Myelocytes) 2.0 [place] 052861-09-17 05:12:00 Test Item Value Reference Range Interpretation Comments Atypical Lymphs (test code = Atypical 0.0 Lymphs) [facility]ressFkgtqgzNTOMVGNFWB4155-76-72 05:12:00 Test Item Value Reference Range Interpretation Comments Bands (test code = 2.0 See_Comment [Automat ed message] The Bands) system which ge nerated this result transmit gill reference range : <=11.0. The reference r abdifatah was not used to interpr et this result as len l/abnormal. [facility] CypressYdnqflzJBRQLBIPFC8603-95-28 05:12:00 Test Item Value Reference Range Interpretation Comments Metamyelocytes (test code 4.0 See_Comment [ Automated message] = Metamyelocytes) The system which generated this result transmitted ref erence range: <=1.0. T he reference range was not used to int erpret this result as normal/abnormal . [facility] CypressIwvooriMJAFZWYRFX3400-82-47 05:12:00 Test Item Value Reference Range Interpretation Comments Myelocytes (test code = Myelocytes) 2.0 [facility]ressXhxlhjlZLGIBRQKIQ7914-05-72 05:12:00 Test Item Value Reference Range Interpretation Comments Atypical Lymphs (test code = Atypical 0.0 Lymphs) [facility] CypressDyahfzwVBZMFDFQKM8240-37-37 05:19:00 Test Item Value Reference Range Interpretation Comments Metamyelocytes (test code 2.0 See_Comment [ Automated message] = Metamyelocytes) The system which generated this result transmitted ref erence range: <=1.0. T he reference range was not used to int erpret this result as normal/abnormal . [facility] CypressIfnplodEDLUZDASVO7416-29-00 05:19:00 Test Item Value Reference Range Interpretation Comments Myelocytes (test code = Myelocytes) 3.0 [facility] CypressVzpghdvIDEXAAUHVA7175-96-79 05:19:00 Test Item Value Reference Range Interpretation Comments Metamyelocytes (test code 2.0 See_Comment [ Automated message] = Metamyelocytes) The system which generated this result transmitted ref erence range: <=1.0. T he reference range was not used to int erpret this result as normal/abnormal . [facility] CypressSevisrvHAWCFYUPZR6749-52-34 05:19:00 Test Item Value Reference Range Interpretation Comments Myelocytes (test code = Myelocytes) 3.0 [place] 052861-09-15 05:36:00 Test Item Value Reference Range Interpretation Comments NRBC (test code = NRBC) 1 [facility] CypressErugosiCIDJMLRAFM3606-86-46 05:36:00 Test Item Value Reference Range Interpretation Comments Plt Morph (test code = Normal (01/10/21 12:36 Plt Morph) AM) [facility] CypressVxghfskUPYEFXOTOX7157-77-55 05:36:00 Test Item Value Reference Range Interpretation Comments Anisocyte (test code = 1+ *ABN*(01/10/21 Anisocyte) 12:36 AM) [facility] CypressAjmqotdJALMOIUNEW9675-35-80 05:36:00 Test Item Value Reference Range Interpretation Comments Polychrom (test code = Polychrom) slight [facility] CypressWiuayyyCKVUARFZAR8092-52-52 05:36:00 Test Item Value Reference Range Interpretation Comments NRBC (test code = NRBC) 1 [facility] CypressIuybykaOOKXYYRTCK8218-05-18 05:36:00 Test Item Value Reference Range Interpretation Comments Plt Morph (test code = Normal (01/10/21 12:36 Plt Morph) AM) [facility] CypressTwbfzhaQWMRZLKDZN5350-74-02 05:36:00 Test Item Value Reference Range Interpretation Comments Anisocyte (test code = 1+ *ABN*(01/10/21 Anisocyte) 12:36 AM) [facility] CypressPmvwalqQHIMHNYNVH5266-73-11 05:36:00 Test Item Value Reference Range Interpretation Comments Polychrom (test code = Polychrom) slight [facility] CypressUwqcsduKTPEFNMWDV9809-98-40 08:28:00 Test Item Value Reference Range Interpretation Comments RBC Morph (test code = Normal (01/09/21 3:28 RBC Morph) AM) [facility] CypressZwpuhifBJAKFZNTMX7564-93-08 08:28:00 Test Item Value Reference Range Interpretation Comments Plt Morph (test code = Normal (01/09/21 3:28 Plt Morph) AM) [facility] CypressCwzflmrUQJWLMLBBD1100-59-74 08:28:00 Test Item Value Reference Range Interpretation Comments RBC Morph (test code = Normal (01/09/21 3:28 RBC Morph) AM) [facility] CypressJklgknjNQDTDNMCDZ9417-42-53 08:28:00 Test Item Value Reference Range Interpretation Comments Plt Morph (test code = Normal (01/09/21 3:28 Plt Morph) AM) [facility] [id number] 18:26:00 Test Item Value Reference Range Interpretation Comments RBC product (test code Product available = RBC product) (01/04/21 1:26 PM) [facility] [id number] 18:26:00 Test Item Value Reference Range Interpretation Comments RBC product (test code Product available = RBC product) (01/04/21 1:26 PM) [facility]2021-09-09 11:51:00 Test Item Value Reference Range Interpretation Comments Lactic Acid Lvl (test code = Lactic 3.8 0.5-2.2 Acid Lvl) [facility]2021-09-09 11:51:00 Test Item Value Reference Range Interpretation Comments Phosphorus (test code = Phosphorus) 3.7 2.5-4.5 [facility]2021-09-09 11:51:00 Test Item Value Reference Range Interpretation Comments Ca Ion WB (test code = Ca Ion WB) 1.27 1.05-1.25 [facility]2021-09-09 11:51:00 Test Item Value Reference Range Interpretation Comments Ca Norm WB (test code = Ca Norm WB) 1.26 1.05-1.25 [facility]2021-09-09 11:51:00 Test Item Value Reference Range Interpretation Comments Lactic Acid Lvl (test code = Lactic 3.8 0.5-2.2 Acid Lvl) [facility]2021-09-09 11:51:00 Test Item Value Reference Range Interpretation Comments Phosphorus (test code = Phosphorus) 3.7 2.5-4.5 [facility]2021-09-09 11:51:00 Test Item Value Reference Range Interpretation Comments Ca Ion WB (test code = Ca Ion WB) 1.27 1.05-1.25 [facility]2021-09-09 11:51:00 Test Item Value Reference Range Interpretation Comments Ca Norm WB (test code = Ca Norm WB) 1.26 1.05-1.25 [facility] [id number] 16:17:00 Test Item Value Reference Range Interpretation Comments FFP product (test code Product available = FFP product) (01/03/21 11:17 AM) [facility] [id number] 16:17:00 Test Item Value Reference Range Interpretation Comments FFP product (test code Product available = FFP product) (01/03/21 11:17 AM) [facility] [id number] 07:16:00 Test Item Value Reference Range Interpretation Comments ABO/Rh (test code = ABO/Rh) A POS [facility] [id number] 07:16:00 Test Item Value Reference Range Interpretation Comments Antibody Scrn (test Negative (01/03/21 2:16 code = Antibody Scrn) AM) [facility] [id number] 07:16:00 Test Item Value Reference Range Interpretation Comments ABO/Rh (test code = ABO/Rh) A POS [facility] [id number] 07:16:00 Test Item Value Reference Range Interpretation Comments Antibody Scrn (test Negative (01/03/21 2:16 code = Antibody Scrn) AM) [facility] [id number] 06:36:00 Test Item Value Reference Range Interpretation Comments RBC product (test code Product available = RBC product) (01/03/21 1:36 AM) [facility] [id number] 06:36:00 Test Item Value Reference Range Interpretation Comments RBC product (test code Product available = RBC product) (01/03/21 1:36 AM) [facility] [employer]) [id number] 06:10:00 Test Item Value Reference Range Interpretation Comments Phosphorus (test code = Phosphorus) 3.0 2.5-4.5 [facility] [employer] ([employer]) [id number] 06:10:00 Test Item Value Reference Range Interpretation Comments Phosphorus (test code = Phosphorus) 3.0 2.5-4.5 [facility] [employer] ([employer]) [id number] 06:27:00 Test Item Value Reference Range Interpretation Comments Phosphorus (test code = Phosphorus) 4.0 2.5-4.5 [facility] [employer] ([employer]) [id number] 06:27:00 Test Item Value Reference Range Interpretation Comments Phosphorus (test code = Phosphorus) 4.0 2.5-4.5 [facility] [employer] ([employer]) [id number] 13:43:00 Test Item Value Reference Range Interpretation Comments Procalcitonin Lvl (test no gt See_Comment [Au tomated message] code = Procalcitonin Lvl) Th e system which generated this result transmitted ref erence range: <=0.10. The reference range was not used to interpr et this result as normal/abnormal . [place] 47[address]-09-05 13:43:00 Test Item Value Reference Range Interpretation Comments Sed Rate (test code = 75 See_Comment [Auto mated message] The Sed Rate) system which ge nerated this result transmit gill reference range : <=20. The reference range was not used to interpr et this result as len l/abnormal. [place] [address]-09-05 13:43:00 Test Item Value Reference Range Interpretation Comments C-REACTIVE PROTEIN (test code = 162.0 C-REACTIVE PROTEIN) [place] 878481-09-05 13:43:00 Test Item Value Reference Range Interpretation Comments Procalcitonin Lvl (test no gt See_Comment [Au tomated message] code = Procalcitonin Lvl) e system which generated this result transmitted ref erence range: <=0.10. The reference range was not used to interpr et this result as normal/abnormal . [place] [address]-09-05 13:43:00 Test Item Value Reference Range Interpretation Comments Sed Rate (test code = 75 See_Comment [Auto mated message] The Sed Rate) system which ge nerated this result transmit gill reference range : <=20. The reference range was not used to interpr et this result as len l/abnormal. [place] [address]-09-05 13:43:00 Test Item Value Reference Range Interpretation Comments C-REACTIVE PROTEIN (test code = 162.0 C-REACTIVE PROTEIN) [facility]2021-08-30 05:46:00 Test Item Value Reference Range Interpretation Comments Glucose Lvl (test code = Glucose Lvl) 110 70-99 [place] 878481-08-30 05:46:00 Test Item Value Reference Range Interpretation Comments BUN (test code = BUN) 9 7-22 [place] 878481-08-30 05:46:00 Test Item Value Reference Range Interpretation Comments Creatinine Lvl (test code = Creatinine 0.38 0.50-1.40 Lvl) [place] 878481-08-30 05:46:00 Test Item Value Reference Range Interpretation Comments Sodium Lvl (test code = Sodium Lvl) 142 135-145 [place] 878481-08-30 05:46:00 Test Item Value Reference Range Interpretation Comments Potassium Lvl (test code = Potassium 3.6 3.5-5.1 Lvl) [place] 878481-08-30 05:46:00 Test Item Value Reference Range Interpretation Comments Chloride Lvl (test code = Chloride Lvl) 110 95-109 [place] 878481-08-30 05:46:00 Test Item Value Reference Range Interpretation Comments CO2 (test code = CO2) 29 24-32 [place] 878481-08-30 05:46:00 Test Item Value Reference Range Interpretation Comments Calcium Lvl (test code = Calcium Lvl) 8.8 8.5-10.5 [place] 878481-08-30 05:46:00 Test Item Value Reference Range Interpretation Comments AGAP (test code = AGAP) 6.6 10.0-20.0 [place] 878481-08-30 05:46:00 Test Item Value Reference Range Interpretation Comments eGFR (test code = eGFR) 120 [place] 052861-08-30 05:46:00 Test Item Value Reference Range Interpretation Comments WBC (test code = WBC) 8.4 3.7-10.4 [place] 052861-08-30 05:46:00 Test Item Value Reference Range Interpretation Comments RBC (test code = RBC) 2.70 4.20-5.40 [place] 052861-08-30 05:46:00 Test Item Value Reference Range Interpretation Comments Hgb (test code = Hgb) 8.6 12.0-16.0 [place] 052861-08-30 05:46:00 Test Item Value Reference Range Interpretation Comments Hct (test code = Hct) 24.9 36.0-48.0 [place] 052861-08-30 05:46:00 Test Item Value Reference Range Interpretation Comments MCV (test code = MCV) 92.3 80.0-98.0 [place] 052861-08-30 05:46:00 Test Item Value Reference Range Interpretation Comments MCH (test code = MCH) 31.9 pg 27.0-31.0 [place] 052861-08-30 05:46:00 Test Item Value Reference Range Interpretation Comments MCHC (test code = MCHC) 34.6 32.0-36.0 [place] 052861-08-30 05:46:00 Test Item Value Reference Range Interpretation Comments RDW (test code = RDW) 16.2 11.5-14.5 [place] 052861-08-30 05:46:00 Test Item Value Reference Range Interpretation Comments Platelet (test code = Platelet) 381 133-450 [place] 052861-08-30 05:46:00 Test Item Value Reference Range Interpretation Comments MPV (test code = MPV) 6.8 7.4-10.4 [place] 052861-08-30 05:46:00 Test Item Value Reference Range Interpretation Comments Segs (test code = Segs) 65.4 45.0-75.0 [place] 052861-08-30 05:46:00 Test Item Value Reference Range Interpretation Comments Lymphocytes (test code = Lymphocytes) 21.2 20.0-40.0 [place] 052861-08-30 05:46:00 Test Item Value Reference Range Interpretation Comments Monocytes (test code = Monocytes) 12.0 2.0-12.0 [place] 052861-08-30 05:46:00 Test Item Value Reference Range Interpretation Comments Eosinophils (test code = 1.0 See_Comment [A utomated message] The Eosinophils) system which ge nerated this result tra nsmitted reference range : <=4.0. The reference r abdifatah was not used to int erpret this result as normal/abnormal . [place] 052861-08-30 05:46:00 Test Item Value Reference Range Interpretation Comments Basophils (test code = 0.4 See_Comment [Aut omated message] The Basophils) system which ge nerated this result tra nsmitted reference range : <=1.0. The reference r abdifatah was not used to int erpret this result as normal/abnormal . [place] 052861-08-30 05:46:00 Test Item Value Reference Range Interpretation Comments Neutrophils # (test code = Neutrophils 5.5 1.5-8.1 #) [place] 052861-08-30 05:46:00 Test Item Value Reference Range Interpretation Comments Lymphocytes # (test code = Lymphocytes 1.8 1.0-5.5 #) [place] 052861-08-30 05:46:00 Test Item Value Reference Range Interpretation Comments Monocytes # (test code 1.0 See_Comment [Aut omated message] The = Monocytes #) system which generated this result tra nsmitted reference range : <=0.8. The reference r abdifatah was not used to int erpret this result as normal/abnormal . [place] 052861-08-30 05:46:00 Test Item Value Reference Range Interpretation Comments Eosinophils # (test code 0.1 See_Comment [A utomated message] The = Eosinophils #) system whic h generated this result tra nsmitted reference range : <=0.5. The reference r abdifatah was not used to int erpret this result as normal/abnormal . [place] 878481-08-30 05:46:00 Test Item Value Reference Range Interpretation Comments Glucose Lvl (test code = Glucose Lvl) 110 70-99 [place] 878481-08-30 05:46:00 Test Item Value Reference Range Interpretation Comments BUN (test code = BUN) 9 7-22 [place] 878481-08-30 05:46:00 Test Item Value Reference Range Interpretation Comments Creatinine Lvl (test code = Creatinine 0.38 0.50-1.40 Lvl) [place] 878481-08-30 05:46:00 Test Item Value Reference Range Interpretation Comments Sodium Lvl (test code = Sodium Lvl) 142 135-145 [place] 878481-08-30 05:46:00 Test Item Value Reference Range Interpretation Comments Potassium Lvl (test code = Potassium 3.6 3.5-5.1 Lvl) [place] 878481-08-30 05:46:00 Test Item Value Reference Range Interpretation Comments Chloride Lvl (test code = Chloride Lvl) 110 95-109 [place] 878481-08-30 05:46:00 Test Item Value Reference Range Interpretation Comments CO2 (test code = CO2) 29 24-32 [place] 878481-08-30 05:46:00 Test Item Value Reference Range Interpretation Comments Calcium Lvl (test code = Calcium Lvl) 8.8 8.5-10.5 [facility]2021-08-30 05:46:00 Test Item Value Reference Range Interpretation Comments AGAP (test code = AGAP) 6.6 10.0-20.0 [facility]2021-08-30 05:46:00 Test Item Value Reference Range Interpretation Comments eGFR (test code = eGFR) 120 [facility]IzdodlrMDQXAFOIZD4637-50-67 05:46:00 Test Item Value Reference Range Interpretation Comments WBC (test code = WBC) 8.4 3.7-10.4 [place] 052861-08-30 05:46:00 Test Item Value Reference Range Interpretation Comments RBC (test code = RBC) 2.70 4.20-5.40 [place] 052861-08-30 05:46:00 Test Item Value Reference Range Interpretation Comments Hgb (test code = Hgb) 8.6 12.0-16.0 [facility] CypressUowofarKYOPCMWYYO7852-46-28 05:46:00 Test Item Value Reference Range Interpretation Comments Hct (test code = Hct) 24.9 36.0-48.0 [facility] CypressYhemrewZJVXUVNWWD8313-92-26 05:46:00 Test Item Value Reference Range Interpretation Comments MCV (test code = MCV) 92.3 80.0-98.0 [facility] CypressJjjdohdUNBRLPOYWE3835-16-95 05:46:00 Test Item Value Reference Range Interpretation Comments MCH (test code = MCH) 31.9 pg 27.0-31.0 [facility] CypressWmrxldjHTKSNBHIFV7255-03-83 05:46:00 Test Item Value Reference Range Interpretation Comments MCHC (test code = MCHC) 34.6 32.0-36.0 [facility] CypressQawkkfkHKEHZQIWXZ5131-56-50 05:46:00 Test Item Value Reference Range Interpretation Comments RDW (test code = RDW) 16.2 11.5-14.5 [place] 052861-08-30 05:46:00 Test Item Value Reference Range Interpretation Comments Platelet (test code = Platelet) 381 620-450 [facility] CypressKckuvhoPBSUYZYXPR3154-50-74 05:46:00 Test Item Value Reference Range Interpretation Comments MPV (test code = MPV) 6.8 7.4-10.4 [place] 052861-08-30 05:46:00 Test Item Value Reference Range Interpretation Comments Segs (test code = Segs) 65.4 45.0-75.0 [place] 052861-08-30 05:46:00 Test Item Value Reference Range Interpretation Comments Lymphocytes (test code = Lymphocytes) 21.2 20.0-40.0 [place] 052861-08-30 05:46:00 Test Item Value Reference Range Interpretation Comments Monocytes (test code = Monocytes) 12.0 2.0-12.0 [place] 052861-08-30 05:46:00 Test Item Value Reference Range Interpretation Comments Eosinophils (test code = 1.0 See_Comment [A utomated message] The Eosinophils) system which ge nerated this result tra nsmitted reference range : <=4.0. The reference r abdifatah was not used to int erpret this result as normal/abnormal . [place] 052861-08-30 05:46:00 Test Item Value Reference Range Interpretation Comments Basophils (test code = 0.4 See_Comment [Aut omated message] The Basophils) system which ge nerated this result tra nsmitted reference range : <=1.0. The reference r abdifatah was not used to int erpret this result as normal/abnormal . [facility] CypressXduifrmBIYKPSZSTT8329-44-82 05:46:00 Test Item Value Reference Range Interpretation Comments Neutrophils # (test code = Neutrophils 5.5 1.5-8.1 #) [place] 052861-08-30 05:46:00 Test Item Value Reference Range Interpretation Comments Lymphocytes # (test code = Lymphocytes 1.8 1.0-5.5 #) [place] 052861-08-30 05:46:00 Test Item Value Reference Range Interpretation Comments Monocytes # (test code 1.0 See_Comment [Aut omated message] The = Monocytes #) system which generated this result tra nsmitted reference range : <=0.8. The reference r abdifatah was not used to int erpret this result as normal/abnormal . [place] 052861-08-30 05:46:00 Test Item Value Reference Range Interpretation Comments Eosinophils # (test code 0.1 See_Comment [A utomated message] The = Eosinophils #) system wh h generated this result tra nsmitted reference range : <=0.5. The reference r abdifatah was not used to int erpret this result as normal/abnormal . [place] 878481-08-29 07:37:00 Test Item Value Reference Range Interpretation Comments Glucose Lvl (test code = Glucose Lvl) 100 70-99 [place] 878481-08-29 07:37:00 Test Item Value Reference Range Interpretation Comments BUN (test code = BUN) 13 7-22 [place] 878481-08-29 07:37:00 Test Item Value Reference Range Interpretation Comments Creatinine Lvl (test code = Creatinine 0.34 0.50-1.40 Lvl) [place] 878481-08-29 07:37:00 Test Item Value Reference Range Interpretation Comments Sodium Lvl (test code = Sodium Lvl) 143 135-145 [place] 878481-08-29 07:37:00 Test Item Value Reference Range Interpretation Comments Potassium Lvl (test code = Potassium 3.7 3.5-5.1 Lvl) [place] 878481-08-29 07:37:00 Test Item Value Reference Range Interpretation Comments Chloride Lvl (test code = Chloride Lvl) 111 95-109 [place] 878481-08-29 07:37:00 Test Item Value Reference Range Interpretation Comments CO2 (test code = CO2) 29 24-32 [place] 878481-08-29 07:37:00 Test Item Value Reference Range Interpretation Comments Calcium Lvl (test code = Calcium Lvl) 8.6 8.5-10.5 [place] 878481-08-29 07:37:00 Test Item Value Reference Range Interpretation Comments AGAP (test code = AGAP) 6.7 10.0-20.0 [place] 878481-08-29 07:37:00 Test Item Value Reference Range Interpretation Comments eGFR (test code = eGFR) 124 [place] 052861-08-29 07:37:00 Test Item Value Reference Range Interpretation Comments Segs (test code = Segs) 64.0 45.0-75.0 [place] 47[address]-08-29 07:37:00 Test Item Value Reference Range Interpretation Comments Lymphocytes (test code = Lymphocytes) 21.4 20.0-40.0 [place] 052861-08-29 07:37:00 Test Item Value Reference Range Interpretation Comments Monocytes (test code = Monocytes) 13.4 2.0-12.0 [place] 052861-08-29 07:37:00 Test Item Value Reference Range Interpretation Comments Eosinophils (test code = 0.8 See_Comment [A utomated message] The Eosinophils) system which ge nerated this result tra nsmitted reference range : <=4.0. The reference r abdifatah was not used to int erpret this result as normal/abnormal . [place] 052861-08-29 07:37:00 Test Item Value Reference Range Interpretation Comments Basophils (test code = 0.4 See_Comment [Aut omated message] The Basophils) system which ge nerated this result tra nsmitted reference range : <=1.0. The reference r abdifatah was not used to int erpret this result as normal/abnormal . [place] 052861-08-29 07:37:00 Test Item Value Reference Range Interpretation Comments Neutrophils # (test code = Neutrophils 6.0 1.5-8.1 #) [place] 052861-08-29 07:37:00 Test Item Value Reference Range Interpretation Comments Lymphocytes # (test code = Lymphocytes 2.0 1.0-5.5 #) [place] 052861-08-29 07:37:00 Test Item Value Reference Range Interpretation Comments Monocytes # (test code 1.3 See_Comment [Aut omated message] The = Monocytes #) system which generated this result tra nsmitted reference range : <=0.8. The reference r abdifatah was not used to int erpret this result as normal/abnormal . [place] 052861-08-29 07:37:00 Test Item Value Reference Range Interpretation Comments Eosinophils # (test code 0.1 See_Comment [A utomated message] The = Eosinophils #) system whic h generated this result tra nsmitted reference range : <=0.5. The reference r abdifatah was not used to int erpret this result as normal/abnormal . [facility] CypressGgjduojUAKCYZJCUD7002-19-77 07:37:00 Test Item Value Reference Range Interpretation Comments WBC (test code = WBC) 9.4 3.7-10.4 [place] 052861-08-29 07:37:00 Test Item Value Reference Range Interpretation Comments RBC (test code = RBC) 2.53 4.20-5.40 [place] 052861-08-29 07:37:00 Test Item Value Reference Range Interpretation Comments Hgb (test code = Hgb) 8.2 12.0-16.0 [place] 052861-08-29 07:37:00 Test Item Value Reference Range Interpretation Comments Hct (test code = Hct) 23.4 36.0-48.0 [place] 052861-08-29 07:37:00 Test Item Value Reference Range Interpretation Comments MCV (test code = MCV) 92.5 80.0-98.0 [place] 052861-08-29 07:37:00 Test Item Value Reference Range Interpretation Comments MCH (test code = MCH) 32.4 pg 27.0-31.0 [place] 052861-08-29 07:37:00 Test Item Value Reference Range Interpretation Comments MCHC (test code = MCHC) 35.1 32.0-36.0 [place] 052861-08-29 07:37:00 Test Item Value Reference Range Interpretation Comments RDW (test code = RDW) 16.8 11.5-14.5 [place] 052861-08-29 07:37:00 Test Item Value Reference Range Interpretation Comments Platelet (test code = Platelet) 352 133-450 [place] 052861-08-29 07:37:00 Test Item Value Reference Range Interpretation Comments MPV (test code = MPV) 6.6 7.4-10.4 [place] 878481-08-29 07:37:00 Test Item Value Reference Range Interpretation Comments Glucose Lvl (test code = Glucose Lvl) 100 70-99 [place] 878481-08-29 07:37:00 Test Item Value Reference Range Interpretation Comments BUN (test code = BUN) 13 7-22 [place] 878481-08-29 07:37:00 Test Item Value Reference Range Interpretation Comments Creatinine Lvl (test code = Creatinine 0.34 0.50-1.40 Lvl) [place] 878481-08-29 07:37:00 Test Item Value Reference Range Interpretation Comments Sodium Lvl (test code = Sodium Lvl) 143 135-145 [place] 878481-08-29 07:37:00 Test Item Value Reference Range Interpretation Comments Potassium Lvl (test code = Potassium 3.7 3.5-5.1 Lvl) [place] 878481-08-29 07:37:00 Test Item Value Reference Range Interpretation Comments Chloride Lvl (test code = Chloride Lvl) 111 95-109 [place] 878481-08-29 07:37:00 Test Item Value Reference Range Interpretation Comments CO2 (test code = CO2) 29 24-32 [place] 878481-08-29 07:37:00 Test Item Value Reference Range Interpretation Comments Calcium Lvl (test code = Calcium Lvl) 8.6 8.5-10.5 [place] 878481-08-29 07:37:00 Test Item Value Reference Range Interpretation Comments AGAP (test code = AGAP) 6.7 10.0-20.0 [place] 878481-08-29 07:37:00 Test Item Value Reference Range Interpretation Comments eGFR (test code = eGFR) 124 [place] 052861-08-29 07:37:00 Test Item Value Reference Range Interpretation Comments Segs (test code = Segs) 64.0 45.0-75.0 [place] 052861-08-29 07:37:00 Test Item Value Reference Range Interpretation Comments Lymphocytes (test code = Lymphocytes) 21.4 20.0-40.0 [place] 052861-08-29 07:37:00 Test Item Value Reference Range Interpretation Comments Monocytes (test code = Monocytes) 13.4 2.0-12.0 [place] 052861-08-29 07:37:00 Test Item Value Reference Range Interpretation Comments Eosinophils (test code = 0.8 See_Comment [A utomated message] The Eosinophils) system which ge nerated this result tra nsmitted reference range : <=4.0. The reference r abdifatah was not used to int erpret this result as normal/abnormal . [place] 052861-08-29 07:37:00 Test Item Value Reference Range Interpretation Comments Basophils (test code = 0.4 See_Comment [Aut omated message] The Basophils) system which ge nerated this result tra nsmitted reference range : <=1.0. The reference r abdifatah was not used to int erpret this result as normal/abnormal . [facility]suwaogSVWWWAGWVU7333-75-11 07:37:00 Test Item Value Reference Range Interpretation Comments Neutrophils # (test code = Neutrophils 6.0 1.5-8.1 #) [facility] CypressXeequptJRBYJMLVXB8421-34-28 07:37:00 Test Item Value Reference Range Interpretation Comments Lymphocytes # (test code = Lymphocytes 2.0 1.0-5.5 #) [facility] CypressGvdazptLMFXAFEQTN0300-43-80 07:37:00 Test Item Value Reference Range Interpretation Comments Monocytes # (test code 1.3 See_Comment [Aut omated message] The = Monocytes #) system which generated this result tra nsmitted reference range : <=0.8. The reference r abdifatah was not used to int erpret this result as normal/abnormal . [facility] CypressJdqmoqvHOWXQLGLNR1184-41-12 07:37:00 Test Item Value Reference Range Interpretation Comments Eosinophils # (test code 0.1 See_Comment [A utomated message] The = Eosinophils #) system whic h generated this result tra nsmitted reference range : <=0.5. The reference r abdifatah was not used to int erpret this result as normal/abnormal . [facility] CypressDxujibzBKCNONTJJJ5265-07-31 07:37:00 Test Item Value Reference Range Interpretation Comments WBC (test code = WBC) 9.4 3.7-10.4 [facility] CypressFgughkuKXGKGXPHYA2417-87-79 07:37:00 Test Item Value Reference Range Interpretation Comments RBC (test code = RBC) 2.53 4.20-5.40 [facility] CypressOhzgbecHNTJSBCTYR5911-12-14 07:37:00 Test Item Value Reference Range Interpretation Comments Hgb (test code = Hgb) 8.2 12.0-16.0 [facility] CypressOobcreaWCBHIBMSMM3755-93-12 07:37:00 Test Item Value Reference Range Interpretation Comments Hct (test code = Hct) 23.4 36.0-48.0 [facility] CypressMttauqdEKWOLFXRVG4808-05-22 07:37:00 Test Item Value Reference Range Interpretation Comments MCV (test code = MCV) 92.5 80.0-98.0 [facility] CypressXxaprhoBXQRLMTGHW0396-75-58 07:37:00 Test Item Value Reference Range Interpretation Comments MCH (test code = MCH) 32.4 pg 27.0-31.0 [place] 052861-08-29 07:37:00 Test Item Value Reference Range Interpretation Comments MCHC (test code = MCHC) 35.1 32.0-36.0 [place] 052861-08-29 07:37:00 Test Item Value Reference Range Interpretation Comments RDW (test code = RDW) 16.8 11.5-14.5 [place] 052861-08-29 07:37:00 Test Item Value Reference Range Interpretation Comments Platelet (test code = Platelet) 352 133-450 [place] 052861-08-29 07:37:00 Test Item Value Reference Range Interpretation Comments MPV (test code = MPV) 6.6 7.4-10.4 [place] 878481-08-28 07:13:00 Test Item Value Reference Range Interpretation Comments Glucose Lvl (test code = Glucose Lvl) 126 70-99 [place] 878481-08-28 07:13:00 Test Item Value Reference Range Interpretation Comments BUN (test code = BUN) 15 7-22 [place] 878481-08-28 07:13:00 Test Item Value Reference Range Interpretation Comments Creatinine Lvl (test code = Creatinine 0.42 0.50-1.40 Lvl) [place] 878481-08-28 07:13:00 Test Item Value Reference Range Interpretation Comments Sodium Lvl (test code = Sodium Lvl) 144 135-145 [place] 878481-08-28 07:13:00 Test Item Value Reference Range Interpretation Comments Potassium Lvl (test code = Potassium 4.3 3.5-5.1 Lvl) [place] 878481-08-28 07:13:00 Test Item Value Reference Range Interpretation Comments Chloride Lvl (test code = Chloride Lvl) 111 95-109 [place] 878481-08-28 07:13:00 Test Item Value Reference Range Interpretation Comments CO2 (test code = CO2) 27 24-32 [place] 878481-08-28 07:13:00 Test Item Value Reference Range Interpretation Comments AGAP (test code = AGAP) 10.3 10.0-20.0 [place] 878481-08-28 07:13:00 Test Item Value Reference Range Interpretation Comments Calcium Lvl (test code = Calcium Lvl) 9.0 8.5-10.5 [facility]2021-08-28 07:13:00 Test Item Value Reference Range Interpretation Comments eGFR (test code = eGFR) 116 [facility] CypressGeaplbpPFSHYMGBOK8902-26-02 07:13:00 Test Item Value Reference Range Interpretation Comments WBC (test code = WBC) 8.5 3.7-10.4 [facility] CypressEhqhnvlTMRWGBBRLH1162-84-33 07:13:00 Test Item Value Reference Range Interpretation Comments RBC (test code = RBC) 2.98 4.20-5.40 [facility] CypressFbnxkdsRETZEORFOH6483-52-97 07:13:00 Test Item Value Reference Range Interpretation Comments Hgb (test code = Hgb) 9.1 12.0-16.0 [facility] CypressKgwatvrRFCBIPDJTT6099-44-59 07:13:00 Test Item Value Reference Range Interpretation Comments Hct (test code = Hct) 27.3 36.0-48.0 [place] 052861-08-28 07:13:00 Test Item Value Reference Range Interpretation Comments MCV (test code = MCV) 91.7 80.0-98.0 [facility] CypressRgnbmkwFZXPQNGYWN2685-23-06 07:13:00 Test Item Value Reference Range Interpretation Comments MCH (test code = MCH) 30.7 pg 27.0-31.0 [facility] CypressTbbafwrDPQJPSEPJQ9701-73-38 07:13:00 Test Item Value Reference Range Interpretation Comments MCHC (test code = MCHC) 33.4 32.0-36.0 [facility] CypressLjhuqexDRYDHSEJBF6274-47-73 07:13:00 Test Item Value Reference Range Interpretation Comments RDW (test code = RDW) 16.7 11.5-14.5 [place] 052861-08-28 07:13:00 Test Item Value Reference Range Interpretation Comments Platelet (test code = Platelet) 388 133-450 [facility] CypressKcsziztBQNOVLJMPU1052-83-86 07:13:00 Test Item Value Reference Range Interpretation Comments MPV (test code = MPV) 6.7 7.4-10.4 [facility] CypressJlsounoBTBCNGPNZN7957-02-61 07:13:00 Test Item Value Reference Range Interpretation Comments Segs (test code = Segs) 75.1 45.0-75.0 [facility] CypressUitivszSVZIQBZFVU6616-15-33 07:13:00 Test Item Value Reference Range Interpretation Comments Lymphocytes (test code = Lymphocytes) 13.0 20.0-40.0 [place] 47[address]-08-28 07:13:00 Test Item Value Reference Range Interpretation Comments Monocytes (test code = Monocytes) 11.8 2.0-12.0 [place] 47[address]-08-28 07:13:00 Test Item Value Reference Range Interpretation Comments Basophils (test code = 0.1 See_Comment [Aut omated message] The Basophils) system which ge nerated this result tra nsmitted reference range : <=1.0. The reference r abdifatah was not used to int erpret this result as normal/abnormal . [place] 47[address]-08-28 07:13:00 Test Item Value Reference Range Interpretation Comments Neutrophils # (test code = Neutrophils 6.4 1.5-8.1 #) [place] 47[address]-08-28 07:13:00 Test Item Value Reference Range Interpretation Comments Lymphocytes # (test code = Lymphocytes 1.1 1.0-5.5 #) [place] 47[address]-08-28 07:13:00 Test Item Value Reference Range Interpretation Comments Monocytes # (test code 1.0 See_Comment [Aut omated message] The = Monocytes #) system which generated this result tra nsmitted reference range : <=0.8. The reference r abdifatah was not used to int erpret this result as normal/abnormal . [place] 878481-08-28 07:13:00 Test Item Value Reference Range Interpretation Comments Glucose Lvl (test code = Glucose Lvl) 126 70-99 [place] 878481-08-28 07:13:00 Test Item Value Reference Range Interpretation Comments BUN (test code = BUN) 15 7-22 [place] [address]-08-28 07:13:00 Test Item Value Reference Range Interpretation Comments Creatinine Lvl (test code = Creatinine 0.42 0.50-1.40 Lvl) [place] 878481-08-28 07:13:00 Test Item Value Reference Range Interpretation Comments Sodium Lvl (test code = Sodium Lvl) 144 135-145 [place] 878481-08-28 07:13:00 Test Item Value Reference Range Interpretation Comments Potassium Lvl (test code = Potassium 4.3 3.5-5.1 Lvl) [place] 878481-08-28 07:13:00 Test Item Value Reference Range Interpretation Comments Chloride Lvl (test code = Chloride Lvl) 111 95-109 [place] 878481-08-28 07:13:00 Test Item Value Reference Range Interpretation Comments CO2 (test code = CO2) 27 24-32 [place] 878481-08-28 07:13:00 Test Item Value Reference Range Interpretation Comments AGAP (test code = AGAP) 10.3 10.0-20.0 [place] 878481-08-28 07:13:00 Test Item Value Reference Range Interpretation Comments Calcium Lvl (test code = Calcium Lvl) 9.0 8.5-10.5 [place] 878481-08-28 07:13:00 Test Item Value Reference Range Interpretation Comments eGFR (test code = eGFR) 116 [place] 052861-08-28 07:13:00 Test Item Value Reference Range Interpretation Comments WBC (test code = WBC) 8.5 3.7-10.4 [place] 052861-08-28 07:13:00 Test Item Value Reference Range Interpretation Comments RBC (test code = RBC) 2.98 4.20-5.40 [place] 052861-08-28 07:13:00 Test Item Value Reference Range Interpretation Comments Hgb (test code = Hgb) 9.1 12.0-16.0 [place] 052861-08-28 07:13:00 Test Item Value Reference Range Interpretation Comments Hct (test code = Hct) 27.3 36.0-48.0 [place] 052861-08-28 07:13:00 Test Item Value Reference Range Interpretation Comments MCV (test code = MCV) 91.7 80.0-98.0 [place] 052861-08-28 07:13:00 Test Item Value Reference Range Interpretation Comments MCH (test code = MCH) 30.7 pg 27.0-31.0 [place] 052861-08-28 07:13:00 Test Item Value Reference Range Interpretation Comments MCHC (test code = MCHC) 33.4 32.0-36.0 [place] 052861-08-28 07:13:00 Test Item Value Reference Range Interpretation Comments RDW (test code = RDW) 16.7 11.5-14.5 [facility] CypressNnzgmmcNJUOIHNCXT2276-73-29 07:13:00 Test Item Value Reference Range Interpretation Comments Platelet (test code = Platelet) 388 133-450 [facility] CypressSdvihmbBSAPWJJGEP5985-54-68 07:13:00 Test Item Value Reference Range Interpretation Comments MPV (test code = MPV) 6.7 7.4-10.4 [facility] CypressGmjgfsuHNOOTLCFNI0739-81-00 07:13:00 Test Item Value Reference Range Interpretation Comments Segs (test code = Segs) 75.1 45.0-75.0 [facility] CypressGqopxwyVHQQUAZBJT0484-34-36 07:13:00 Test Item Value Reference Range Interpretation Comments Lymphocytes (test code = Lymphocytes) 13.0 20.0-40.0 [facility] CypressVcyzjfsGGLYIIQRRK7918-54-83 07:13:00 Test Item Value Reference Range Interpretation Comments Monocytes (test code = Monocytes) 11.8 2.0-12.0 [facility] CypressQdbsmkhTPEMZJUECF5025-64-21 07:13:00 Test Item Value Reference Range Interpretation Comments Basophils (test code = 0.1 See_Comment [Aut omated message] The Basophils) system which ge nerated this result tra nsmitted reference range : <=1.0. The reference r abdifatah was not used to int erpret this result as normal/abnormal . [facility] CypressEbusycmUNFEORKMFD0807-46-86 07:13:00 Test Item Value Reference Range Interpretation Comments Neutrophils # (test code = Neutrophils 6.4 1.5-8.1 #) [facility] CypressXdtcilmYZEAAFSHIZ0608-06-29 07:13:00 Test Item Value Reference Range Interpretation Comments Lymphocytes # (test code = Lymphocytes 1.1 1.0-5.5 #) [facility] CypressXwdppdtJPVGSUAIAI9670-15-63 07:13:00 Test Item Value Reference Range Interpretation Comments Monocytes # (test code 1.0 See_Comment [Aut omated message] The = Monocytes #) system which generated this result tra nsmitted reference range : <=0.8. The reference r abdifatah was not used to int erpret this result as normal/abnormal . [facility] NCXQRYD2335-01-65 12:54:00 Test Item Value Reference Range Interpretation Comments RBC product (test code Product available = RBC product) (12/22/20 7:54 AM) [facility] BANK [id number] 12:54:00 Test Item Value Reference Range Interpretation Comments FFP product (test code Product available = FFP product) (12/22/20 7:54 AM) [facility] [id number] 12:54:00 Test Item Value Reference Range Interpretation Comments RBC product (test code Product available = RBC product) (12/22/20 7:54 AM) [facility] [id number] 12:54:00 Test Item Value Reference Range Interpretation Comments FFP product (test code Product available = FFP product) (12/22/20 7:54 AM) [facility] [id number] 07:31:00 Test Item Value Reference Range Interpretation Comments Antibody Scrn (test Negative (12/22/20 2:31 code = Antibody Scrn) AM) [facility] [id number] 07:31:00 Test Item Value Reference Range Interpretation Comments ABO/Rh (test code = ABO/Rh) A POS [facility] CypressJrrqlciMSSVKQTKQW1027-50-38 07:31:00 Test Item Value Reference Range Interpretation Comments PTT (test code = PTT) 26.2 s 22.9-35.8 [facility] CypressCphmiesWDXHSPZJPM9249-01-46 07:31:00 Test Item Value Reference Range Interpretation Comments PT (test code = PT) 11.8 s 12.0-14.7 [facility] CypressTzacripRAKQBRONOF4127-51-10 07:31:00 Test Item Value Reference Range Interpretation Comments INR (test code = INR) 0.87 1 0.85-1.17 [facility] CypressXpvxvqyMNCTMWXWBL5257-36-65 07:31:00 Test Item Value Reference Range Interpretation Comments Eosinophils (test code = 1.3 See_Comment [A utomated message] The Eosinophils) system which ge nerated this result tra nsmitted reference range : <=4.0. The reference r abdifatah was not used to int erpret this result as normal/abnormal . [facility] CypressZczuhnlLEADFWOTZV9052-36-22 07:31:00 Test Item Value Reference Range Interpretation Comments Eosinophils # (test code 0.1 See_Comment [A utomated message] The = Eosinophils #) system whic h generated this result tra nsmitted reference range : <=0.5. The reference r abdifatah was not used to int erpret this result as normal/abnormal . [facility] [id number] 07:31:00 Test Item Value Reference Range Interpretation Comments Antibody Scrn (test Negative (12/22/20 2:31 code = Antibody Scrn) AM) [facility] [id number] 07:31:00 Test Item Value Reference Range Interpretation Comments ABO/Rh (test code = ABO/Rh) A POS [facility] CypressEqedzneBQOWABOIFW9728-82-85 07:31:00 Test Item Value Reference Range Interpretation Comments PTT (test code = PTT) 26.2 s 22.9-35.8 [facility] CypressRizcpziJEVEHBQEUH1867-43-55 07:31:00 Test Item Value Reference Range Interpretation Comments PT (test code = PT) 11.8 s 12.0-14.7 [facility] CypressUupeqckOKWDESYZOG4493-62-08 07:31:00 Test Item Value Reference Range Interpretation Comments INR (test code = INR) 0.87 1 0.85-1.17 [facility] CypressJukqrfzVNULOGYOZW7048-40-99 07:31:00 Test Item Value Reference Range Interpretation Comments Eosinophils (test code = 1.3 See_Comment [A utomated message] The Eosinophils) system which ge nerated this result tra nsmitted reference range : <=4.0. The reference r abdifatah was not used to int erpret this result as normal/abnormal . [facility] CypressRopiqcxAUHETHUXFN1300-56-31 07:31:00 Test Item Value Reference Range Interpretation Comments Eosinophils # (test code 0.1 See_Comment [A utomated message] The = Eosinophils #) system [employer] generated this result tra nsmitted reference range : <=0.5. The reference r abdifatah was not used to int erpret this result as normal/abnormal . [facility] CenterLkzwxobTROBNKUFIA2540-53-64 06:12:00 Test Item Value Reference Range Interpretation Comments Coronavirus (COVID-19) Not Detected (12/22/20 KASSY (test code = 1:12 AM) Coronavirus (COVID-19) KASSY) [facility] CenterTjnnogfIMYUYKRPXW4161-32-10 06:12:00 Test Item Value Reference Range Interpretation Comments Coronavirus (COVID-19) Not Detected (12/22/20 KASSY (test code = 1:12 AM) Coronavirus (COVID-19) KASSY) [facility]2021-08-24 05:56:00 Test Item Value Reference Range Interpretation Comments Magnesium Lvl (test code = Magnesium 2.2 1.8-2.4 Lvl) [place] 878481-08-24 05:56:00 Test Item Value Reference Range Interpretation Comments Magnesium Lvl (test code = Magnesium 2.2 1.8-2.4 Lvl) [facility]2021-08-23 05:26:00 Test Item Value Reference Range Interpretation Comments Glucose Lvl (test code = Glucose Lvl) 115 70-99 [place] 878481-08-23 05:26:00 Test Item Value Reference Range Interpretation Comments BUN (test code = BUN) 10 -22 [place] 878481-08-23 05:26:00 Test Item Value Reference Range Interpretation Comments Creatinine Lvl (test code = Creatinine 0.46 0.50-1.40 Lvl) [facility]2021-08-23 05:26:00 Test Item Value Reference Range Interpretation Comments Sodium Lvl (test code = Sodium Lvl) 141 135-145 [facility]2021-08-23 05:26:00 Test Item Value Reference Range Interpretation Comments Potassium Lvl (test code = Potassium 3.3 3.5-5.1 Lvl) [facility]2021-08-23 05:26:00 Test Item Value Reference Range Interpretation Comments Chloride Lvl (test code = Chloride Lvl) 109 95-109 [place] 878481-08-23 05:26:00 Test Item Value Reference Range Interpretation Comments CO2 (test code = CO2) 28 24-32 [place] 878481-08-23 05:26:00 Test Item Value Reference Range Interpretation Comments Calcium Lvl (test code = Calcium Lvl) 8.4 8.5-10.5 [place] 878481-08-23 05:26:00 Test Item Value Reference Range Interpretation Comments AGAP (test code = AGAP) 7.3 10.0-20.0 [place] 878481-08-23 05:26:00 Test Item Value Reference Range Interpretation Comments eGFR (test code = eGFR) 112 [facility] CypressUpcaxjnSHIRFPSLVR5155-76-77 05:26:00 Test Item Value Reference Range Interpretation Comments Segs (test code = Segs) 66.8 45.0-75.0 [place] 052861-08-23 05:26:00 Test Item Value Reference Range Interpretation Comments Lymphocytes (test code = Lymphocytes) 21.4 20.0-40.0 [place] 052861-08-23 05:26:00 Test Item Value Reference Range Interpretation Comments Monocytes (test code = Monocytes) 11.3 2.0-12.0 [place] 052861-08-23 05:26:00 Test Item Value Reference Range Interpretation Comments Eosinophils (test code = 0.4 See_Comment [A utomated message] The Eosinophils) system which ge nerated this result tra nsmitted reference range : <=4.0. The reference r abdifatah was not used to int erpret this result as normal/abnormal . [place] 052861-08-23 05:26:00 Test Item Value Reference Range Interpretation Comments Basophils (test code = 0.1 See_Comment [Aut omated message] The Basophils) system which ge nerated this result tra nsmitted reference range : <=1.0. The reference r abdifatah was not used to int erpret this result as normal/abnormal . [place] 052861-08-23 05:26:00 Test Item Value Reference Range Interpretation Comments Neutrophils # (test code = Neutrophils 5.5 1.5-8.1 #) [place] 052861-08-23 05:26:00 Test Item Value Reference Range Interpretation Comments Lymphocytes # (test code = Lymphocytes 1.8 1.0-5.5 #) [place] 052861-08-23 05:26:00 Test Item Value Reference Range Interpretation Comments Monocytes # (test code 0.9 See_Comment [Aut omated message] The = Monocytes #) system which generated this result tra nsmitted reference range : <=0.8. The reference r abdifatah was not used to int erpret this result as normal/abnormal . [place] 052861-08-23 05:26:00 Test Item Value Reference Range Interpretation Comments WBC (test code = WBC) 8.2 3.7-10.4 [place] 052861-08-23 05:26:00 Test Item Value Reference Range Interpretation Comments RBC (test code = RBC) 3.14 4.20-5.40 [place] 052861-08-23 05:26:00 Test Item Value Reference Range Interpretation Comments Hgb (test code = Hgb) 9.6 12.0-16.0 [place] [address]-08-23 05:26:00 Test Item Value Reference Range Interpretation Comments Hct (test code = Hct) 28.3 36.0-48.0 [place] 052861-08-23 05:26:00 Test Item Value Reference Range Interpretation Comments MCV (test code = MCV) 90.1 80.0-98.0 [place] [address]-08-23 05:26:00 Test Item Value Reference Range Interpretation Comments MCH (test code = MCH) 30.6 pg 27.0-31.0 [place] 052861-08-23 05:26:00 Test Item Value Reference Range Interpretation Comments MCHC (test code = MCHC) 33.9 32.0-36.0 [place] 052861-08-23 05:26:00 Test Item Value Reference Range Interpretation Comments RDW (test code = RDW) 16.1 11.5-14.5 [place] 052861-08-23 05:26:00 Test Item Value Reference Range Interpretation Comments Platelet (test code = Platelet) 192 133-450 [place] 052861-08-23 05:26:00 Test Item Value Reference Range Interpretation Comments MPV (test code = MPV) 8.2 7.4-10.4 [facility]2021-08-23 05:26:00 Test Item Value Reference Range Interpretation Comments Glucose Lvl (test code = Glucose Lvl) 115 70-99 [facility]2021-08-23 05:26:00 Test Item Value Reference Range Interpretation Comments BUN (test code = BUN) 10 7-22 [place] 878481-08-23 05:26:00 Test Item Value Reference Range Interpretation Comments Creatinine Lvl (test code = Creatinine 0.46 0.50-1.40 Lvl) [place] 878481-08-23 05:26:00 Test Item Value Reference Range Interpretation Comments Sodium Lvl (test code = Sodium Lvl) 141 135-145 [place] 878481-08-23 05:26:00 Test Item Value Reference Range Interpretation Comments Potassium Lvl (test code = Potassium 3.3 3.5-5.1 Lvl) [place] 878481-08-23 05:26:00 Test Item Value Reference Range Interpretation Comments Chloride Lvl (test code = Chloride Lvl) 109 95-109 [place] 878481-08-23 05:26:00 Test Item Value Reference Range Interpretation Comments CO2 (test code = CO2) 28 24-32 [place] 878481-08-23 05:26:00 Test Item Value Reference Range Interpretation Comments Calcium Lvl (test code = Calcium Lvl) 8.4 8.5-10.5 [place] 878481-08-23 05:26:00 Test Item Value Reference Range Interpretation Comments AGAP (test code = AGAP) 7.3 10.0-20.0 [place] 878481-08-23 05:26:00 Test Item Value Reference Range Interpretation Comments eGFR (test code = eGFR) 112 [place] 052861-08-23 05:26:00 Test Item Value Reference Range Interpretation Comments Segs (test code = Segs) 66.8 45.0-75.0 [place] 052861-08-23 05:26:00 Test Item Value Reference Range Interpretation Comments Lymphocytes (test code = Lymphocytes) 21.4 20.0-40.0 [place] 052861-08-23 05:26:00 Test Item Value Reference Range Interpretation Comments Monocytes (test code = Monocytes) 11.3 2.0-12.0 [place] [address]-08-23 05:26:00 Test Item Value Reference Range Interpretation Comments Eosinophils (test code = 0.4 See_Comment [A utomated message] The Eosinophils) system which ge nerated this result tra nsmitted reference range : <=4.0. The reference r abdifatah was not used to int erpret this result as normal/abnormal . [place] 052861-08-23 05:26:00 Test Item Value Reference Range Interpretation Comments Basophils (test code = 0.1 See_Comment [Aut omated message] The Basophils) system which ge nerated this result tra nsmitted reference range : <=1.0. The reference r abdifatah was not used to int erpret this result as normal/abnormal . [place] 052861-08-23 05:26:00 Test Item Value Reference Range Interpretation Comments Neutrophils # (test code = Neutrophils 5.5 1.5-8.1 #) [facility]351[facility]13 05:26:00 Test Item Value Reference Range Interpretation Comments Lymphocytes # (test code = Lymphocytes 1.8 1.0-5.5 #) [place] 052861-08-23 05:26:00 Test Item Value Reference Range Interpretation Comments Monocytes # (test code 0.9 See_Comment [Aut omated message] The = Monocytes #) system which generated this result tra nsmitted reference range : <=0.8. The reference r abdifatah was not used to int erpret this result as normal/abnormal . [place] 052861-08-23 05:26:00 Test Item Value Reference Range Interpretation Comments WBC (test code = WBC) 8.2 3.7-10.4 [place] 052861-08-23 05:26:00 Test Item Value Reference Range Interpretation Comments RBC (test code = RBC) 3.14 4.20-5.40 [place] 052861-08-23 05:26:00 Test Item Value Reference Range Interpretation Comments Hgb (test code = Hgb) 9.6 12.0-16.0 [place] 052861-08-23 05:26:00 Test Item Value Reference Range Interpretation Comments Hct (test code = Hct) 28.3 36.0-48.0 [place] 052861-08-23 05:26:00 Test Item Value Reference Range Interpretation Comments MCV (test code = MCV) 90.1 80.0-98.0 [place] [address]-08-23 05:26:00 Test Item Value Reference Range Interpretation Comments MCH (test code = MCH) 30.6 pg 27.0-31.0 [place] 052861-08-23 05:26:00 Test Item Value Reference Range Interpretation Comments MCHC (test code = MCHC) 33.9 32.0-36.0 [place] 052861-08-23 05:26:00 Test Item Value Reference Range Interpretation Comments RDW (test code = RDW) 16.1 11.5-14.5 [place] 052861-08-23 05:26:00 Test Item Value Reference Range Interpretation Comments Platelet (test code = Platelet) 192 133-450 [facility]FgpdvwwNGROLBULSB3568-03-54 05:26:00 Test Item Value Reference Range Interpretation Comments MPV (test code = MPV) 8.2 7.4-10.4 [place] 052861-08-22 12:18:00 Test Item Value Reference Range Interpretation Comments PT (test code = PT) 13.7 s 12.0-14.7 [place] 052861-08-22 12:18:00 Test Item Value Reference Range Interpretation Comments INR (test code = INR) 1.06 1 0.85-1.17 [place] [address]-08-22 12:18:00 Test Item Value Reference Range Interpretation Comments PTT (test code = PTT) 34.8 s 22.9-35.8 [place] 052861-08-22 12:18:00 Test Item Value Reference Range Interpretation Comments PT (test code = PT) 13.7 s 12.0-14.7 [place] 052861-08-22 12:18:00 Test Item Value Reference Range Interpretation Comments INR (test code = INR) 1.06 1 0.85-1.17 [place] 052861-08-22 12:18:00 Test Item Value Reference Range Interpretation Comments PTT (test code = PTT) 34.8 s 22.9-35.8 [place] 878481-08-22 09:58:00 Test Item Value Reference Range Interpretation Comments Total Protein (test code = Total 6.0 6.4-8.4 Protein) [place] 878481-08-22 09:58:00 Test Item Value Reference Range Interpretation Comments Albumin Lvl (test code = Albumin Lvl) 3.0 3.5-5.0 [facility]2021-08-22 09:58:00 Test Item Value Reference Range Interpretation Comments ALT (test code = ALT) 37 See_Comment [Auto mated message] The system which ge nerated this result transmit gill reference range : <=65. The reference range was not used to interpr et this result as len l/abnormal. [facility] [id number] 09:58:00 Test Item Value Reference Range Interpretation Comments AST (test code = AST) 34 See_Comment [Auto mated message] The system which ge nerated this result transmit gill reference range : <=37. The reference range was not used to interpr et this result as len l/abnormal. [place] 878481-08-22 09:58:00 Test Item Value Reference Range Interpretation Comments Alk Phos (test code = Alk Phos) 50 39-136 [place] 878481-08-22 09:58:00 Test Item Value Reference Range Interpretation Comments Bili Total (test code = Bili Total) 0.9 0.2-1.3 [place] 878481-08-22 09:58:00 Test Item Value Reference Range Interpretation Comments B/C Ratio (test code = B/C Ratio) 17 1 6-25 [place] 878481-08-22 09:58:00 Test Item Value Reference Range Interpretation Comments Globulin (test code = Globulin) 3.0 2.7-4.2 [facility] [id number] 09:58:00 Test Item Value Reference Range Interpretation Comments A/G Ratio (test code = A/G Ratio) 1.0 1 0.7-1.6 [facility] [id number] 09:58:00 Test Item Value Reference Range Interpretation Comments Lactic Acid Lvl (test code = Lactic 1.1 0.5-2.2 Acid Lvl) [facility] [id number] 09:58:00 Test Item Value Reference Range Interpretation Comments Glucose Lvl (test code = Glucose Lvl) 106 70-99 [facility] [id number] 09:58:00 Test Item Value Reference Range Interpretation Comments BUN (test code = BUN) 7 7-22 [place] 878481-08-22 09:58:00 Test Item Value Reference Range Interpretation Comments Creatinine Lvl (test code = Creatinine 0.41 0.50-1.40 Lvl) [facility]2021-08-22 09:58:00 Test Item Value Reference Range Interpretation Comments Sodium Lvl (test code = Sodium Lvl) 145 135-145 [id number] 09:58:00 Test Item Value Reference Range Interpretation Comments Potassium Lvl (test code = Potassium 3.5 3.5-5.1 Lvl) [place] 878481-08-22 09:58:00 Test Item Value Reference Range Interpretation Comments Chloride Lvl (test code = Chloride Lvl) 113 95-109 [place] 878481-08-22 09:58:00 Test Item Value Reference Range Interpretation Comments CO2 (test code = CO2) 29 24-32 [place] 878481-08-22 09:58:00 Test Item Value Reference Range Interpretation Comments Calcium Lvl (test code = Calcium Lvl) 8.8 8.5-10.5 [place] 878481-08-22 09:58:00 Test Item Value Reference Range Interpretation Comments AGAP (test code = AGAP) 6.5 10.0-20.0 [place] 878481-08-22 09:58:00 Test Item Value Reference Range Interpretation Comments eGFR (test code = eGFR) 116 [place] 052861-08-22 09:58:00 Test Item Value Reference Range Interpretation Comments WBC (test code = WBC) 7.5 3.7-10.4 [place] [address]-08-22 09:58:00 Test Item Value Reference Range Interpretation Comments RBC (test code = RBC) 3.13 4.20-5.40 [place] 052861-08-22 09:58:00 Test Item Value Reference Range Interpretation Comments Hgb (test code = Hgb) 9.8 12.0-16.0 [place] [address]-08-22 09:58:00 Test Item Value Reference Range Interpretation Comments Hct (test code = Hct) 28.0 36.0-48.0 [place] [address]-08-22 09:58:00 Test Item Value Reference Range Interpretation Comments MCV (test code = MCV) 89.5 80.0-98.0 [place] [address]-08-22 09:58:00 Test Item Value Reference Range Interpretation Comments MCH (test code = MCH) 31.4 pg 27.0-31.0 [place] [address]-08-22 09:58:00 Test Item Value Reference Range Interpretation Comments MCHC (test code = MCHC) 35.1 32.0-36.0 [facility]ressJcsinwmPYTODRTBLW5554-68-99 09:58:00 Test Item Value Reference Range Interpretation Comments RDW (test code = RDW) 15.9 11.5-14.5 [place] 052861-08-22 09:58:00 Test Item Value Reference Range Interpretation Comments Platelet (test code = Platelet) 174 133-450 [facility] CypressFciabhjXMUXVKXXFX0899-67-77 09:58:00 Test Item Value Reference Range Interpretation Comments MPV (test code = MPV) 8.0 7.4-10.4 [place] 052861-08-22 09:58:00 Test Item Value Reference Range Interpretation Comments Segs (test code = Segs) 64.1 45.0-75.0 [place] 052861-08-22 09:58:00 Test Item Value Reference Range Interpretation Comments Lymphocytes (test code = Lymphocytes) 22.1 20.0-40.0 [place] 052861-08-22 09:58:00 Test Item Value Reference Range Interpretation Comments Monocytes (test code = Monocytes) 13.1 2.0-12.0 [facility] CypressGpnqzcsTZHDKSNODG2627-54-34 09:58:00 Test Item Value Reference Range Interpretation Comments Eosinophils (test code = 0.3 See_Comment [A utomated message] The Eosinophils) system which ge nerated this result tra nsmitted reference range : <=4.0. The reference r abdifatah was not used to int erpret this result as normal/abnormal . [facility] CypressSfyufqcRVNXBHZUBY3784-03-46 09:58:00 Test Item Value Reference Range Interpretation Comments Basophils (test code = 0.4 See_Comment [Aut omated message] The Basophils) system which ge nerated this result tra nsmitted reference range : <=1.0. The reference r abdifatah was not used to int erpret this result as normal/abnormal . [facility] CypressGwgzzzfSKIYJGEODW5836-94-58 09:58:00 Test Item Value Reference Range Interpretation Comments Neutrophils # (test code = Neutrophils 4.8 1.5-8.1 #) [facility] CypressLkafdgxEQGJDFUOHU6778-24-79 09:58:00 Test Item Value Reference Range Interpretation Comments Lymphocytes # (test code = Lymphocytes 1.7 1.0-5.5 #) [place] 052861-08-22 09:58:00 Test Item Value Reference Range Interpretation Comments Monocytes # (test code 1.0 See_Comment [Aut omated message] The = Monocytes #) system which generated this result tra nsmitted reference range : <=0.8. The reference r abdifatah was not used to int erpret this result as normal/abnormal . [place] 878481-08-22 09:58:00 Test Item Value Reference Range Interpretation Comments Total Protein (test code = Total 6.0 6.4-8.4 Protein) [address]08-22 09:58:00 Test Item Value Reference Range Interpretation Comments Albumin Lvl (test code = Albumin Lvl) 3.0 3.5-5.0 [place] 878481-08-22 09:58:00 Test Item Value Reference Range Interpretation Comments ALT (test code = ALT) 37 See_Comment [Auto mated message] The system which ge nerated this result transmit gill reference range : <=65. The reference range was not used to interpr et this result as len l/abnormal. [place] 878481-08-22 09:58:00 Test Item Value Reference Range Interpretation Comments AST (test code = AST) 34 See_Comment [Auto mated message] The system which ge nerated this result transmit gill reference range : <=37. The reference range was not used to interpr et this result as len l/abnormal. [place] 878481-08-22 09:58:00 Test Item Value Reference Range Interpretation Comments Alk Phos (test code = Alk Phos) 50 39-136 [place] 878481-08-22 09:58:00 Test Item Value Reference Range Interpretation Comments Bili Total (test code = Bili Total) 0.9 0.2-1.3 [place] [address]-08-22 09:58:00 Test Item Value Reference Range Interpretation Comments B/C Ratio (test code = B/C Ratio) 17 1 6-25 [place] [address]-08-22 09:58:00 Test Item Value Reference Range Interpretation Comments Globulin (test code = Globulin) 3.0 2.7-4.2 [place] 878481-08-22 09:58:00 Test Item Value Reference Range Interpretation Comments A/G Ratio (test code = A/G Ratio) 1.0 1 0.7-1.6 [place] 878481-08-22 09:58:00 Test Item Value Reference Range Interpretation Comments Lactic Acid Lvl (test code = Lactic 1.1 0.5-2.2 Acid Lvl) [place] 878481-08-22 09:58:00 Test Item Value Reference Range Interpretation Comments Glucose Lvl (test code = Glucose Lvl) 106 70-99 [place] 878481-08-22 09:58:00 Test Item Value Reference Range Interpretation Comments BUN (test code = BUN) 7 7-22 [place] 878481-08-22 09:58:00 Test Item Value Reference Range Interpretation Comments Creatinine Lvl (test code = Creatinine 0.41 0.50-1.40 Lvl) [place] 878481-08-22 09:58:00 Test Item Value Reference Range Interpretation Comments Sodium Lvl (test code = Sodium Lvl) 145 135-145 [place] 878481-08-22 09:58:00 Test Item Value Reference Range Interpretation Comments Potassium Lvl (test code = Potassium 3.5 3.5-5.1 Lvl) [place] 878481-08-22 09:58:00 Test Item Value Reference Range Interpretation Comments Chloride Lvl (test code = Chloride Lvl) 113 95-109 [place] 878481-08-22 09:58:00 Test Item Value Reference Range Interpretation Comments CO2 (test code = CO2) 29 24-32 [place] 878481-08-22 09:58:00 Test Item Value Reference Range Interpretation Comments Calcium Lvl (test code = Calcium Lvl) 8.8 8.5-10.5 [place] 878481-08-22 09:58:00 Test Item Value Reference Range Interpretation Comments AGAP (test code = AGAP) 6.5 10.0-20.0 [place] 878481-08-22 09:58:00 Test Item Value Reference Range Interpretation Comments eGFR (test code = eGFR) 116 [place] 052861-08-22 09:58:00 Test Item Value Reference Range Interpretation Comments WBC (test code = WBC) 7.5 3.7-10.4 [address]08-22 09:58:00 Test Item Value Reference Range Interpretation Comments RBC (test code = RBC) 3.13 4.20-5.40 [place] 052861-08-22 09:58:00 Test Item Value Reference Range Interpretation Comments Hgb (test code = Hgb) 9.8 12.0-16.0 [place] 052861-08-22 09:58:00 Test Item Value Reference Range Interpretation Comments Hct (test code = Hct) 28.0 36.0-48.0 [facility] CypressHdkijzjVFJPVIYYAD1072-32-92 09:58:00 Test Item Value Reference Range Interpretation Comments MCV (test code = MCV) 89.5 80.0-98.0 [place] 052861-08-22 09:58:00 Test Item Value Reference Range Interpretation Comments MCH (test code = MCH) 31.4 pg 27.0-31.0 [place] 052861-08-22 09:58:00 Test Item Value Reference Range Interpretation Comments MCHC (test code = MCHC) 35.1 32.0-36.0 [place] 052861-08-22 09:58:00 Test Item Value Reference Range Interpretation Comments RDW (test code = RDW) 15.9 11.5-14.5 [facility] CypressYqwgxioNOBJIEAJHW2827-12-04 09:58:00 Test Item Value Reference Range Interpretation Comments Platelet (test code = Platelet) 174 133-450 [facility] CypressSentytwGUFAKCJDIR9207-02-35 09:58:00 Test Item Value Reference Range Interpretation Comments MPV (test code = MPV) 8.0 7.4-10.4 [place] 052861-08-22 09:58:00 Test Item Value Reference Range Interpretation Comments Segs (test code = Segs) 64.1 45.0-75.0 [place] 052861-08-22 09:58:00 Test Item Value Reference Range Interpretation Comments Lymphocytes (test code = Lymphocytes) 22.1 20.0-40.0 [place] 052861-08-22 09:58:00 Test Item Value Reference Range Interpretation Comments Monocytes (test code = Monocytes) 13.1 2.0-12.0 [place] 052861-08-22 09:58:00 Test Item Value Reference Range Interpretation Comments Eosinophils (test code = 0.3 See_Comment [A utomated message] The Eosinophils) system which ge nerated this result tra nsmitted reference range : <=4.0. The reference r abdifatah was not used to int erpret this result as normal/abnormal . [place] 052861-08-22 09:58:00 Test Item Value Reference Range Interpretation Comments Basophils (test code = 0.4 See_Comment [Aut omated message] The Basophils) system which ge nerated this result tra nsmitted reference range : <=1.0. The reference r abdifatah was not used to int erpret this result as normal/abnormal . [place] 052861-08-22 09:58:00 Test Item Value Reference Range Interpretation Comments Neutrophils # (test code = Neutrophils 4.8 1.5-8.1 #) [place] 052861-08-22 09:58:00 Test Item Value Reference Range Interpretation Comments Lymphocytes # (test code = Lymphocytes 1.7 1.0-5.5 #) [place] 052861-08-22 09:58:00 Test Item Value Reference Range Interpretation Comments Monocytes # (test code 1.0 See_Comment [Aut omated message] The = Monocytes #) system which generated this result tra nsmitted reference range : <=0.8. The reference r abdifatah was not used to int erpret this result as normal/abnormal . [facility]2021-08-21 19:25:00 Test Item Value Reference Range Interpretation Comments Lactic Acid Lvl (test code = Lactic 3.6 0.5-2.2 Acid Lvl) [place] 878481-08-21 19:25:00 Test Item Value Reference Range Interpretation Comments Lactic Acid Lvl (test code = Lactic 3.6 0.5-2.2 Acid Lvl) [place] 878481-08-21 15:30:00 Test Item Value Reference Range Interpretation Comments Lactic Acid Lvl (test code = Lactic 2.1 0.5-2.2 Acid Lvl) [place] 878481-08-21 15:30:00 Test Item Value Reference Range Interpretation Comments Lactic Acid Lvl (test code = Lactic 2.1 0.5-2.2 Acid Lvl) [place] 052861-08-21 15:22:00 Test Item Value Reference Range Interpretation Comments PT (test code = PT) 13.3 s 12.0-14.7 [place] 052861-08-21 15:22:00 Test Item Value Reference Range Interpretation Comments INR (test code = INR) 1.02 1 0.85-1.17 [place] 052861-08-21 15:22:00 Test Item Value Reference Range Interpretation Comments PTT (test code = PTT) 25.7 s 22.9-35.8 [place] 052861-08-21 15:22:00 Test Item Value Reference Range Interpretation Comments PT (test code = PT) 13.3 s 12.0-14.7 [place] 052861-08-21 15:22:00 Test Item Value Reference Range Interpretation Comments INR (test code = INR) 1.02 1 0.85-1.17 [facility] CypressSzhsvsgGSKGPCXWQM1793-79-34 15:22:00 Test Item Value Reference Range Interpretation Comments PTT (test code = PTT) 25.7 s 22.9-35.8 [facility]2021-08-21 11:03:00 Test Item Value Reference Range Interpretation Comments Procalcitonin Lvl <0.05 ng/mL See_Comment [Automate d message] (test code = The system whic h Procalcitonin Lvl) generated this result transmit gill reference range : <=0.10. The reference range was not used to interpret this result as normal/abnormal . [facility]2021-08-21 11:03:00 Test Item Value Reference Range Interpretation Comments Procalcitonin Lvl <0.05 ng/mL See_Comment [Automate d message] (test code = The system whic h Procalcitonin Lvl) generated this result transmit gill reference range : <=0.10. The reference range was not used to interpret this result as normal/abnormal . [facility] CypressOlgpilmQXUZZQBXWD8606-85-57 08:33:00 Test Item Value Reference Range Interpretation Comments WBC (test code = WBC) 8.8 3.7-10.4 [place] 052861-08-21 08:33:00 Test Item Value Reference Range Interpretation Comments RBC (test code = RBC) 3.26 4.20-5.40 [place] 052861-08-21 08:33:00 Test Item Value Reference Range Interpretation Comments Hgb (test code = Hgb) 10.0 12.0-16.0 [place] 052861-08-21 08:33:00 Test Item Value Reference Range Interpretation Comments Hct (test code = Hct) 29.6 36.0-48.0 [place] 052861-08-21 08:33:00 Test Item Value Reference Range Interpretation Comments MCV (test code = MCV) 90.8 80.0-98.0 [place] 052861-08-21 08:33:00 Test Item Value Reference Range Interpretation Comments MCH (test code = MCH) 30.7 pg 27.0-31.0 [place] 052861-08-21 08:33:00 Test Item Value Reference Range Interpretation Comments MCHC (test code = MCHC) 33.8 32.0-36.0 [place] 052861-08-21 08:33:00 Test Item Value Reference Range Interpretation Comments RDW (test code = RDW) 16.1 11.5-14.5 [place] 052861-08-21 08:33:00 Test Item Value Reference Range Interpretation Comments Platelet (test code = Platelet) 171 133-450 [place] 052861-08-21 08:33:00 Test Item Value Reference Range Interpretation Comments MPV (test code = MPV) 8.6 7.4-10.4 [place] 052861-08-21 08:33:00 Test Item Value Reference Range Interpretation Comments Segs (test code = Segs) 79.1 45.0-75.0 [place] 052861-08-21 08:33:00 Test Item Value Reference Range Interpretation Comments Lymphocytes (test code = Lymphocytes) 11.2 20.0-40.0 [place] 052861-08-21 08:33:00 Test Item Value Reference Range Interpretation Comments Monocytes (test code = Monocytes) 9.5 2.0-12.0 [place] 052861-08-21 08:33:00 Test Item Value Reference Range Interpretation Comments Basophils (test code = 0.2 See_Comment [Aut omated message] The Basophils) system which ge nerated this result tra nsmitted reference range : <=1.0. The reference r abdifatah was not used to int erpret this result as normal/abnormal . [place] 052861-08-21 08:33:00 Test Item Value Reference Range Interpretation Comments Neutrophils # (test code = Neutrophils 6.9 1.5-8.1 #) [place] 052861-08-21 08:33:00 Test Item Value Reference Range Interpretation Comments Lymphocytes # (test code = Lymphocytes 1.0 1.0-5.5 #) [place] 052861-08-21 08:33:00 Test Item Value Reference Range Interpretation Comments Monocytes # (test code 0.8 See_Comment [Aut omated message] The = Monocytes #) system which generated this result tra nsmitted reference range : <=0.8. The reference r abdifatah was not used to int erpret this result as normal/abnormal . [place] 052861-08-21 08:33:00 Test Item Value Reference Range Interpretation Comments WBC (test code = WBC) 8.8 3.7-10.4 [place] 052861-08-21 08:33:00 Test Item Value Reference Range Interpretation Comments RBC (test code = RBC) 3.26 4.20-5.40 [place] 052861-08-21 08:33:00 Test Item Value Reference Range Interpretation Comments Hgb (test code = Hgb) 10.0 12.0-16.0 [place] 052861-08-21 08:33:00 Test Item Value Reference Range Interpretation Comments Hct (test code = Hct) 29.6 36.0-48.0 [place] 052861-08-21 08:33:00 Test Item Value Reference Range Interpretation Comments MCV (test code = MCV) 90.8 80.0-98.0 [place] 052861-08-21 08:33:00 Test Item Value Reference Range Interpretation Comments MCH (test code = MCH) 30.7 pg 27.0-31.0 [place] 052861-08-21 08:33:00 Test Item Value Reference Range Interpretation Comments MCHC (test code = MCHC) 33.8 32.0-36.0 [place] 052861-08-21 08:33:00 Test Item Value Reference Range Interpretation Comments RDW (test code = RDW) 16.1 11.5-14.5 [facility]ressGscacteFCOHUSIXBE1527-69-60 08:33:00 Test Item Value Reference Range Interpretation Comments Platelet (test code = Platelet) 171 133-450 [facility] CypressTckmxkpZUOQQWJMOV6209-38-98 08:33:00 Test Item Value Reference Range Interpretation Comments MPV (test code = MPV) 8.6 7.4-10.4 [facility] CypressYnqzbvsMNBKTKFCDK9869-34-76 08:33:00 Test Item Value Reference Range Interpretation Comments Segs (test code = Segs) 79.1 45.0-75.0 [facility]ressIayhkowWYNJDLYNUN6623-40-47 08:33:00 Test Item Value Reference Range Interpretation Comments Lymphocytes (test code = Lymphocytes) 11.2 20.0-40.0 [facility] CypressJjxvutiWQMPYYMXMZ7949-85-41 08:33:00 Test Item Value Reference Range Interpretation Comments Monocytes (test code = Monocytes) 9.5 2.0-12.0 [facility] CypressUlaydrrRYDASQYNRO3834-73-66 08:33:00 Test Item Value Reference Range Interpretation Comments Basophils (test code = 0.2 See_Comment [Aut omated message] The Basophils) system which ge nerated this result tra nsmitted reference range : <=1.0. The reference r abdifatah was not used to int erpret this result as normal/abnormal . [facility] CypressThaxxisXJWIHTCAER9475-88-18 08:33:00 Test Item Value Reference Range Interpretation Comments Neutrophils # (test code = Neutrophils 6.9 1.5-8.1 #) [facility] CypressLrrjvcuTXNTSAIFWW8941-51-79 08:33:00 Test Item Value Reference Range Interpretation Comments Lymphocytes # (test code = Lymphocytes 1.0 1.0-5.5 #) [facility] CypressLaycqusFIYBQIEAHT7929-80-13 08:33:00 Test Item Value Reference Range Interpretation Comments Monocytes # (test code 0.8 See_Comment [Aut omated message] The = Monocytes #) system which generated this result tra nsmitted reference range : <=0.8. The reference r abdifatah was not used to int erpret this result as normal/abnormal . [facility]2021-08-21 06:30:00 Test Item Value Reference Range Interpretation Comments Total CK (test code = Total CK) 396 12-191 [facility] [id number] 06:30:00 Test Item Value Reference Range Interpretation Comments Troponin-I (test code no gt See_Comment [Auto mated message] The = Troponin-I) system which g enerated this result transmit gill reference range : <=0.40. The reference r abdifatah was not used to interpr et this result as len l/abnormal. [facility]ictlcjKEZJMXRYTW1924-29-[facility] 06:30:00 Test Item Value Reference Range Interpretation Comments PTT (test code = PTT) 28.0 s 22.9-35.8 [facility] [id number] 06:30:00 Test Item Value Reference Range Interpretation Comments Total CK (test code = Total CK) 396 12-191 [facility] [id number] 06:30:00 Test Item Value Reference Range Interpretation Comments Troponin-I (test code no gt See_Comment [Auto mated message] The = Troponin-I) system which g enerated this result transmit gill reference range : <=0.40. The reference r abdifatah was not used to interpr et this result as len l/abnormal. [facility] CenterSnkwdtzHBYCZWMPDL7140-56-85 06:30:00 Test Item Value Reference Range Interpretation Comments PTT (test code = PTT) 28.0 s 22.9-35.8 [facility] [employer] ([employer]) [id number] 23:44:00 Test Item Value Reference Range Interpretation Comments Glucose Lvl (test code = Glucose Lvl) 161 70-99 [facility] [employer] ([employer]) [id number] 23:44:00 Test Item Value Reference Range Interpretation Comments BUN (test code = BUN) 7 7-22 [facility] [employer] ([employer]) [id number] 23:44:00 Test Item Value Reference Range Interpretation Comments Creatinine Lvl (test code = Creatinine 0.76 0.50-1.40 Lvl) [facility] [employer] ([employer]) [id number] 23:44:00 Test Item Value Reference Range Interpretation Comments Sodium Lvl (test code = Sodium Lvl) 143 135-145 [facility] [employer]2021-08-20 23:44:00 Test Item Value Reference Range Interpretation Comments Potassium Lvl (test code = Potassium 4.7 3.5-5.1 Lvl) [facility] [employer] ([employer]) [id number] 23:44:00 Test Item Value Reference Range Interpretation Comments Chloride Lvl (test code = Chloride Lvl) 110 95-109 [facility]2021-08-20 23:44:00 Test Item Value Reference Range Interpretation Comments CO2 (test code = CO2) 20 - [facility]2021-08-20 23:44:00 Test Item Value Reference Range Interpretation Comments Calcium Lvl (test code = Calcium Lvl) 9.1 8.5-10.5 [facility]2021-08-20 23:44:00 Test Item Value Reference Range Interpretation Comments AGAP (test code = AGAP) 17.7 10.0-20.0 [facility]2021-08-20 23:44:00 Test Item Value Reference Range Interpretation Comments eGFR (test code = eGFR) 89 [facility]2021-08-20 23:44:00 Test Item Value Reference Range Interpretation Comments Glucose Lvl (test code = Glucose Lvl) 161 70-99 [facility]2021-08-20 23:44:00 Test Item Value Reference Range Interpretation Comments BUN (test code = BUN) 7 7-22 [facility]2021-08-20 23:44:00 Test Item Value Reference Range Interpretation Comments Creatinine Lvl (test code = Creatinine 0.76 0.50-1.40 Lvl) [facility]2021-08-20 23:44:00 Test Item Value Reference Range Interpretation Comments Sodium Lvl (test code = Sodium Lvl) 143 135-145 [facility]2021-08-20 23:44:00 Test Item Value Reference Range Interpretation Comments Potassium Lvl (test code = Potassium 4.7 3.5-5.1 Lvl) [facility]2021-08-20 23:44:00 Test Item Value Reference Range Interpretation Comments Chloride Lvl (test code = Chloride Lvl) 110 95-109 [facility]2021-08-20 23:44:00 Test Item Value Reference Range Interpretation Comments CO2 (test code = CO2) - [facility]2021-08-20 23:44:00 Test Item Value Reference Range Interpretation Comments Calcium Lvl (test code = Calcium Lvl) 9.1 8.5-10.5 [facility]2021-08-20 23:44:00 Test Item Value Reference Range Interpretation Comments AGAP (test code = AGAP) 17.7 10.0-20.0 [facility] [employer] ([employer]) [id number] 23:44:00 Test Item Value Reference Range Interpretation Comments eGFR (test code = eGFR) 89 [facility] [id number] 23:10:00 Test Item Value Reference Range Interpretation Comments Total CK (test code = Total CK) 519 191 [facility] CenterAjgsabtSRCZDQKVAI6430-33-77 23:10:00 Test Item Value Reference Range Interpretation Comments PT (test code = PT) 15.9 s 12.0-14.7 [facility] CenterQhejytuRPRLQIRDOE3688-06-86 23:10:00 Test Item Value Reference Range Interpretation Comments INR (test code = INR) 1.29 1 0.85-1.17 [facility] CenterYagpaouGVZRNOKHZ3059-52-30 23:10:00 Test Item Value Reference Range Interpretation Comments Myoglobin (test code = Myoglobin) 211 [facility] [id number] 23:10:00 Test Item Value Reference Range Interpretation Comments Total CK (test code = Total CK) 519 12191 [facility] CenterChgqdamMSBMLJZDDO0281-85-76 23:10:00 Test Item Value Reference Range Interpretation Comments PT (test code = PT) 15.9 s 12.0-14.7 [facility] CenterGopvfiyVGJQPDTVBS3021-80-01 23:10:00 Test Item Value Reference Range Interpretation Comments INR (test code = INR) 1.29 1 0.85-1.17 [facility] CenterMpoldvgRCFBNQLRN2119-24-63 23:10:00 Test Item Value Reference Range Interpretation Comments Myoglobin (test code = Myoglobin) 211 -72 [facility] [employer] [id number] 16:12:00 Test Item Value Reference Range Interpretation Comments RBC product (test code Product available = RBC product) (12/15/20 11:12 AM) [facility] [employer] [id number] 16:12:00 Test Item Value Reference Range Interpretation Comments FFP product (test code Product available = FFP product) (12/15/20 11:12 AM) [facility] [employer] [id number] 16:12:00 Test Item Value Reference Range Interpretation Comments RBC product (test code Product available = RBC product) (12/15/20 11:12 AM) [facility] [id number] 16:12:00 Test Item Value Reference Range Interpretation Comments FFP product (test code Product available = FFP product) (12/15/20 11:12 AM) [facility] [id number] 15:56:00 Test Item Value Reference Range Interpretation Comments ABO/Rh (test code = ABO/Rh) A POS [facility] [id number] 15:56:00 Test Item Value Reference Range Interpretation Comments Antibody Scrn (test Negative (12/13/20 code = Antibody Scrn) 10:56 AM) [id number] 15:56:00 Test Item Value Reference Range Interpretation Comments Eosinophils (test code = 1.2 See_Comment [A utomated message] The Eosinophils) system which ge nerated this result tra nsmitted reference range : <=4.0. The reference r abdifatah was not used to int erpret this result as normal/abnormal . [facility] [id number] 15:56:00 Test Item Value Reference Range Interpretation Comments Eosinophils # (test code 0.1 See_Comment [A utomated message] The = Eosinophils #) system whic h generated this result tra nsmitted reference range : <=0.5. The reference r abdifatah was not used to int erpret this result as normal/abnormal . [facility] [id number] 15:56:00 Test Item Value Reference Range Interpretation Comments ABO/Rh (test code = ABO/Rh) A POS [facility] [id number] 15:56:00 Test Item Value Reference Range Interpretation Comments Antibody Scrn (test Negative (12/13/20 code = Antibody Scrn) 10:56 AM) [facility] CypressVpjaxqtUTHDTREKYS2597-54-90 15:56:00 Test Item Value Reference Range Interpretation Comments Eosinophils (test code = 1.2 See_Comment [A utomated message] The Eosinophils) system which ge nerated this result tra nsmitted reference range : <=4.0. The reference r abdifatah was not used to int erpret this result as normal/abnormal . [facility] Cy[id number] 15:56:00 Test Item Value Reference Range Interpretation Comments Eosinophils # (test code 0.1 See_Comment [A utomated message] The = Eosinophils #) system whic h generated this result tra nsmitted reference range : <=0.5. The reference r abdifatah was not used to int erpret this result as normal/abnormal . [facility]AT[facility]DXE2922-[facility]-51 18:54:00 Test Item Value Reference Range Interpretation Comments Coronavirus (COVID-19) Not Detected KASSY (test code = *NA*(12/11/20 1:54 PM) Coronavirus (COVID-19) KASSY) [place] [id number] 18:54:00 Test Item Value Reference Range Interpretation Comments Coronavirus (COVID-19) Not Detected KASSY (test code = *NA*(12/11/20 1:54 PM) Coronavirus (COVID-19) KASSY) [facility]2021-05-28 18:00:00 Test Item Value Reference Range Interpretation Comments Glucose Lvl (test code = Glucose Lvl) 97 70-99 [facility]2021-05-28 18:00:00 Test Item Value Reference Range Interpretation Comments BUN (test code = BUN) 18 7-22 [facility]2021-05-28 18:00:00 Test Item Value Reference Range Interpretation Comments Creatinine Lvl (test code = Creatinine 0.77 0.50-1.40 Lvl) [facility]2021-05-28 18:00:00 Test Item Value Reference Range Interpretation Comments Sodium Lvl (test code = Sodium Lvl) 147 135-145 [facility]2021-05-28 18:00:00 Test Item Value Reference Range Interpretation Comments Potassium Lvl (test code = Potassium 3.6 3.5-5.1 Lvl) [place] 878481-05-28 18:00:00 Test Item Value Reference Range Interpretation Comments Chloride Lvl (test code = Chloride Lvl) 114 95-109 [facility]2021-05-28 18:00:00 Test Item Value Reference Range Interpretation Comments CO2 (test code = CO2) 28 24-32 [place] 878481-05-28 18:00:00 Test Item Value Reference Range Interpretation Comments Calcium Lvl (test code = Calcium Lvl) 8.5 8.5-10.5 [place] 878481-05-28 18:00:00 Test Item Value Reference Range Interpretation Comments AGAP (test code = AGAP) 8.6 10.0-20.0 [place] 878481-05-28 18:00:00 Test Item Value Reference Range Interpretation Comments eGFR (test code = eGFR) 87 [place] 878481-05-28 18:00:00 Test Item Value Reference Range Interpretation Comments Glucose Lvl (test code = Glucose Lvl) 97 70-99 [place] 878481-05-28 18:00:00 Test Item Value Reference Range Interpretation Comments BUN (test code = BUN) 18 - [place] 878481-05-28 18:00:00 Test Item Value Reference Range Interpretation Comments Creatinine Lvl (test code = Creatinine 0.77 0.50-1.40 Lvl) [place] 878481-05-28 18:00:00 Test Item Value Reference Range Interpretation Comments Sodium Lvl (test code = Sodium Lvl) 147 135-145 [place] 878481-05-28 18:00:00 Test Item Value Reference Range Interpretation Comments Potassium Lvl (test code = Potassium 3.6 3.5-5.1 Lvl) [facility]2021-05-28 18:00:00 Test Item Value Reference Range Interpretation Comments Chloride Lvl (test code = Chloride Lvl) 114 95-109 [place] 878481-05-28 18:00:00 Test Item Value Reference Range Interpretation Comments CO2 (test code = CO2) 28 -32 [place] 878481-05-28 18:00:00 Test Item Value Reference Range Interpretation Comments Calcium Lvl (test code = Calcium Lvl) 8.5 8.5-10.5 [place] 878481-05-28 18:00:00 Test Item Value Reference Range Interpretation Comments AGAP (test code = AGAP) 8.6 10.0-20.0 [place] 878481-05-28 18:00:00 Test Item Value Reference Range Interpretation Comments eGFR (test code = eGFR) 87 [place] 878481-05-28 09:30:00 Test Item Value Reference Range Interpretation Comments Procalcitonin Lvl (test 0.20 See_Comment [Au tomated message] code = Procalcitonin Lvl) e system which generated this result transmitted ref erence range: <=0.10. The reference range was not used to interpr et this result as normal/abnormal . [place] 878481-05-28 09:30:00 Test Item Value Reference Range Interpretation Comments Glucose Lvl (test code = Glucose Lvl) 111 70-99 [place] [address]-05-28 09:30:00 Test Item Value Reference Range Interpretation Comments BUN (test code = BUN) 21 7-22 [place] [address]-05-28 09:30:00 Test Item Value Reference Range Interpretation Comments Creatinine Lvl (test code = Creatinine 0.72 0.50-1.40 Lvl) [place] [address]-05-28 09:30:00 Test Item Value Reference Range Interpretation Comments Sodium Lvl (test code = Sodium Lvl) 147 135-145 [place] 878481-05-28 09:30:00 Test Item Value Reference Range Interpretation Comments Potassium Lvl (test code = Potassium 3.5 3.5-5.1 Lvl) [place] [address]-05-28 09:30:00 Test Item Value Reference Range Interpretation Comments Chloride Lvl (test code = Chloride Lvl) 115 95-109 [place] 878481-05-28 09:30:00 Test Item Value Reference Range Interpretation Comments CO2 (test code = CO2) 28 24-32 [place] 878481-05-28 09:30:00 Test Item Value Reference Range Interpretation Comments Calcium Lvl (test code = Calcium Lvl) 9.1 8.5-10.5 [place] 878481-05-28 09:30:00 Test Item Value Reference Range Interpretation Comments Total Protein (test code = Total 5.8 6.4-8.4 Protein) [place] [address]-05-28 09:30:00 Test Item Value Reference Range Interpretation Comments Albumin Lvl (test code = Albumin Lvl) 2.4 3.5-5.0 [place] [address]-05-28 09:30:00 Test Item Value Reference Range Interpretation Comments ALT (test code = ALT) 24 See_Comment [Auto mated message] The system which ge nerated this result transmit gill reference range : <=65. The reference range was not used to interpr et this result as len l/abnormal. [facility] [id number] 09:30:00 Test Item Value Reference Range Interpretation Comments AST (test code = AST) 25 See_Comment [Auto mated message] The system which ge nerated this result transmit gill reference range : <=37. The reference range was not used to interpr et this result as len l/abnormal. [facility] [id number] 09:30:00 Test Item Value Reference Range Interpretation Comments Alk Phos (test code = Alk Phos) 64 39-136 [facility] [id number] 09:30:00 Test Item Value Reference Range Interpretation Comments Bili Total (test code = Bili Total) 0.2 0.2-1.3 [facility] [id number] 09:30:00 Test Item Value Reference Range Interpretation Comments AGAP (test code = AGAP) 7.5 10.0-20.0 [facility] [id number] 09:30:00 Test Item Value Reference Range Interpretation Comments B/C Ratio (test code = B/C Ratio) 29 1 6-25 [facility] [id number] 09:30:00 Test Item Value Reference Range Interpretation Comments Globulin (test code = Globulin) 3.4 2.7-4.2 [facility] [id number] 09:30:00 Test Item Value Reference Range Interpretation Comments A/G Ratio (test code = A/G Ratio) 0.7 1 0.7-1.6 [facility] [id number] 09:30:00 Test Item Value Reference Range Interpretation Comments eGFR (test code = eGFR) 94 [place] [address]-05-28 09:30:00 Test Item Value Reference Range Interpretation Comments RBC Morph (test code = Normal (09/22/20 4:30 RBC Morph) AM) [place] [address]-05-28 09:30:00 Test Item Value Reference Range Interpretation Comments Plt Morph (test code = Normal (09/22/20 4:30 Plt Morph) AM) [place] 052861-05-28 09:30:00 Test Item Value Reference Range Interpretation Comments Segs (test code = Segs) 51.3 45.0-75.0 [place] 052861-05-28 09:30:00 Test Item Value Reference Range Interpretation Comments Lymphocytes (test code = Lymphocytes) 29.2 20.0-40.0 [place] 052861-05-28 09:30:00 Test Item Value Reference Range Interpretation Comments Monocytes (test code = Monocytes) 9.9 2.0-12.0 [place] 052861-05-28 09:30:00 Test Item Value Reference Range Interpretation Comments Eosinophils (test code = 8.7 See_Comment [A utomated message] The Eosinophils) system which ge nerated this result tra nsmitted reference range : <=4.0. The reference r abdifatah was not used to int erpret this result as normal/abnormal . [place] [address]-05-28 09:30:00 Test Item Value Reference Range Interpretation Comments Basophils (test code = 0.9 See_Comment [Aut omated message] The Basophils) system which ge nerated this result tra nsmitted reference range : <=1.0. The reference r abdifatah was not used to int erpret this result as normal/abnormal . [facility] Cy[id number] 09:30:00 Test Item Value Reference Range Interpretation Comments Neutrophils # (test code = Neutrophils 3.5 1.5-8.1 #) [place] 052861-05-28 09:30:00 Test Item Value Reference Range Interpretation Comments Lymphocytes # (test code = Lymphocytes 2.0 1.0-5.5 #) [place] 052861-05-28 09:30:00 Test Item Value Reference Range Interpretation Comments Monocytes # (test code 0.7 See_Comment [Aut omated message] The = Monocytes #) system which generated this result tra nsmitted reference range : <=0.8. The reference r abdifatah was not used to int erpret this result as normal/abnormal . [facility] Cy[id number] 09:30:00 Test Item Value Reference Range Interpretation Comments Eosinophils # (test code 0.6 See_Comment [A utomated message] The = Eosinophils #) system wh h generated this result tra nsmitted reference range : <=0.5. The reference r abdifatah was not used to int erpret this result as normal/abnormal . [facility] [id number] 09:30:00 Test Item Value Reference Range Interpretation Comments Basophils # (test code 0.1 See_Comment [Aut omated message] The = Basophils #) system which generated this result tra nsmitted reference range : <=0.2. The reference r abdifatah was not used to int erpret this result as normal/abnormal . [facility] CypressYvhzlonWULWNVMIZT8453-70-67 09:30:00 Test Item Value Reference Range Interpretation Comments WBC (test code = WBC) 6.9 3.7-10.4 [place] 052861-05-28 09:30:00 Test Item Value Reference Range Interpretation Comments RBC (test code = RBC) 2.99 4.20-5.40 [place] 052861-05-28 09:30:00 Test Item Value Reference Range Interpretation Comments Hgb (test code = Hgb) 9.3 12.0-16.0 [place] 052861-05-28 09:30:00 Test Item Value Reference Range Interpretation Comments Hct (test code = Hct) 27.7 36.0-48.0 [place] 052861-05-28 09:30:00 Test Item Value Reference Range Interpretation Comments MCV (test code = MCV) 92.6 80.0-98.0 [place] 052861-05-28 09:30:00 Test Item Value Reference Range Interpretation Comments MCH (test code = MCH) 31.2 pg 27.0-31.0 [facility] [id number] 09:30:00 Test Item Value Reference Range Interpretation Comments MCHC (test code = MCHC) 33.7 32.0-36.0 [place] 052861-05-28 09:30:00 Test Item Value Reference Range Interpretation Comments RDW (test code = RDW) 14.4 11.5-14.5 [place] 052861-05-28 09:30:00 Test Item Value Reference Range Interpretation Comments Platelet (test code = Platelet) 301 133-450 [place] 052861-05-28 09:30:00 Test Item Value Reference Range Interpretation Comments MPV (test code = MPV) 7.9 7.4-10.4 [place] 878481-05-28 09:30:00 Test Item Value Reference Range Interpretation Comments Procalcitonin Lvl (test 0.20 See_Comment [Au tomated message] code = Procalcitonin Lvl) Th e system which generated this result transmitted ref erence range: <=0.10. The reference range was not used to interpr et this result as normal/abnormal . [place] 878481-05-28 09:30:00 Test Item Value Reference Range Interpretation Comments Glucose Lvl (test code = Glucose Lvl) 111 70-99 [place] 878481-05-28 09:30:00 Test Item Value Reference Range Interpretation Comments BUN (test code = BUN) 21 7-22 [place] 878481-05-28 09:30:00 Test Item Value Reference Range Interpretation Comments Creatinine Lvl (test code = Creatinine 0.72 0.50-1.40 Lvl) [place] 878481-05-28 09:30:00 Test Item Value Reference Range Interpretation Comments Sodium Lvl (test code = Sodium Lvl) 147 135-145 [facility] [id number] 09:30:00 Test Item Value Reference Range Interpretation Comments Potassium Lvl (test code = Potassium 3.5 3.5-5.1 Lvl) [place] 878481-05-28 09:30:00 Test Item Value Reference Range Interpretation Comments Chloride Lvl (test code = Chloride Lvl) 115 95-109 [place] 878481-05-28 09:30:00 Test Item Value Reference Range Interpretation Comments CO2 (test code = CO2) 24-32 [facility] [id number] 09:30:00 Test Item Value Reference Range Interpretation Comments Calcium Lvl (test code = Calcium Lvl) 9.1 8.5-10.5 [facility] [id number] 09:30:00 Test Item Value Reference Range Interpretation Comments Total Protein (test code = Total 5.8 6.4-8.4 Protein) [place] 878481-05-28 09:30:00 Test Item Value Reference Range Interpretation Comments Albumin Lvl (test code = Albumin Lvl) 2.4 3.5-5.0 [facility] [id number] 09:30:00 Test Item Value Reference Range Interpretation Comments ALT (test code = ALT) 24 See_Comment [Auto mated message] The system which ge nerated this result transmit gill reference range : <=65. The reference range was not used to interpr et this result as len l/abnormal. [facility] [id number] 09:30:00 Test Item Value Reference Range Interpretation Comments AST (test code = AST) 25 See_Comment [Auto mated message] The system which ge nerated this result transmit gill reference range : <=37. The reference range was not used to interpr et this result as len l/abnormal. [facility] [id number] 09:30:00 Test Item Value Reference Range Interpretation Comments Alk Phos (test code = Alk Phos) 64 39-136 [facility] [id number] 09:30:00 Test Item Value Reference Range Interpretation Comments Bili Total (test code = Bili Total) 0.2 0.2-1.3 [facility] [id number] 09:30:00 Test Item Value Reference Range Interpretation Comments AGAP (test code = AGAP) 7.5 10.0-20.0 [facility] [id number] 09:30:00 Test Item Value Reference Range Interpretation Comments B/C Ratio (test code = B/C Ratio) 29 1 6-25 [facility] [id number] 09:30:00 Test Item Value Reference Range Interpretation Comments Globulin (test code = Globulin) 3.4 2.7-4.2 [facility] [id number] 09:30:00 Test Item Value Reference Range Interpretation Comments A/G Ratio (test code = A/G Ratio) 0.7 1 0.7-1.6 [facility] [id number] 09:30:00 Test Item Value Reference Range Interpretation Comments eGFR (test code = eGFR) 94 [place] [address]-05-28 09:30:00 Test Item Value Reference Range Interpretation Comments RBC Morph (test code = Normal (09/22/20 4:30 RBC Morph) AM) [facility] Center[facility]ywqjpaEPTFMMQEMT3523-09-61 09:30:00 Test Item Value Reference Range Interpretation Comments Plt Morph (test code = Normal (09/22/20 4:30 Plt Morph) AM) [place] 052861-05-28 09:30:00 Test Item Value Reference Range Interpretation Comments Segs (test code = Segs) 51.3 45.0-75.0 [place] 052861-05-28 09:30:00 Test Item Value Reference Range Interpretation Comments Lymphocytes (test code = Lymphocytes) 29.2 20.0-40.0 [place] 052861-05-28 09:30:00 Test Item Value Reference Range Interpretation Comments Monocytes (test code = Monocytes) 9.9 2.0-12.0 [place] 052861-05-28 09:30:00 Test Item Value Reference Range Interpretation Comments Eosinophils (test code = 8.7 See_Comment [A utomated message] The Eosinophils) system which ge nerated this result tra nsmitted reference range : <=4.0. The reference r abdifatah was not used to int erpret this result as normal/abnormal . [facility]ressShiqpfoXVIIVLUZPF5819-61-62 09:30:00 Test Item Value Reference Range Interpretation Comments Basophils (test code = 0.9 See_Comment [Aut omated message] The Basophils) system which ge nerated this result tra nsmitted reference range : <=1.0. The reference r abdifatah was not used to int erpret this result as normal/abnormal . [facility]ressEopoywbSKJQXUTDTB7692-91-54 09:30:00 Test Item Value Reference Range Interpretation Comments Neutrophils # (test code = Neutrophils 3.5 1.5-8.1 #) [place] 052861-05-28 09:30:00 Test Item Value Reference Range Interpretation Comments Lymphocytes # (test code = Lymphocytes 2.0 1.0-5.5 #) [place] 052861-05-28 09:30:00 Test Item Value Reference Range Interpretation Comments Monocytes # (test code 0.7 See_Comment [Aut omated message] The = Monocytes #) system which generated this result tra nsmitted reference range : <=0.8. The reference r abdifatah was not used to int erpret this result as normal/abnormal . [place] 052861-05-28 09:30:00 Test Item Value Reference Range Interpretation Comments Eosinophils # (test code 0.6 See_Comment [A utomated message] The = Eosinophils #) system whic h generated this result tra nsmitted reference range : <=0.5. The reference r abdifatah was not used to int erpret this result as normal/abnormal . [facility] CypressQrinlflIIJCEHVQFN9787-22-53 09:30:00 Test Item Value Reference Range Interpretation Comments Basophils # (test code 0.1 See_Comment [Aut omated message] The = Basophils #) system which generated this result tra nsmitted reference range : <=0.2. The reference r abdifatah was not used to int erpret this result as normal/abnormal . [facility] CypressVcmhdywKXXNCOBGRS8821-83-59 09:30:00 Test Item Value Reference Range Interpretation Comments WBC (test code = WBC) 6.9 3.7-10.4 [facility] CypressYxdeajmXAHRHJFYHW9812-66-73 09:30:00 Test Item Value Reference Range Interpretation Comments RBC (test code = RBC) 2.99 4.20-5.40 [facility] CypressNazwqmdJUHSVIITHY7246-84-44 09:30:00 Test Item Value Reference Range Interpretation Comments Hgb (test code = Hgb) 9.3 12.0-16.0 [facility] CypressXqdshuzHPMBZXDBTB3281-96-36 09:30:00 Test Item Value Reference Range Interpretation Comments Hct (test code = Hct) 27.7 36.0-48.0 [facility] CypressGkmodbcFGRVHGXISQ5215-46-97 09:30:00 Test Item Value Reference Range Interpretation Comments MCV (test code = MCV) 92.6 80.0-98.0 [facility] CypressLufjulxOZLDTBXBAU8834-24-64 09:30:00 Test Item Value Reference Range Interpretation Comments MCH (test code = MCH) 31.2 pg 27.0-31.0 [facility] CypressBmgxuuxHWUDYEJWFO1688-59-48 09:30:00 Test Item Value Reference Range Interpretation Comments MCHC (test code = MCHC) 33.7 32.0-36.0 [facility] CypressNmgtndoULUJJMKWEW5534-59-01 09:30:00 Test Item Value Reference Range Interpretation Comments RDW (test code = RDW) 14.4 11.5-14.5 [facility] CypressRbzoeycWHTCKDUIXH1858-97-46 09:30:00 Test Item Value Reference Range Interpretation Comments Platelet (test code = Platelet) 301 133-450 [facility] CypressMeilsqrQFVDWVITVN5347-60-13 09:30:00 Test Item Value Reference Range Interpretation Comments MPV (test code = MPV) 7.9 7.4-10.4 [place] [address]-05-27 08:23:00 Test Item Value Reference Range Interpretation Comments Glucose Lvl (test code = Glucose Lvl) 91 70-99 [place] [address]-05-27 08:23:00 Test Item Value Reference Range Interpretation Comments BUN (test code = BUN) 25 7-22 [place] [address]-05-27 08:23:00 Test Item Value Reference Range Interpretation Comments Creatinine Lvl (test code = Creatinine 0.82 0.50-1.40 Lvl) [address]05-27 08:23:00 Test Item Value Reference Range Interpretation Comments Sodium Lvl (test code = Sodium Lvl) 144 135-145 [place] [address]-05-27 08:23:00 Test Item Value Reference Range Interpretation Comments Potassium Lvl (test code = Potassium 3.6 3.5-5.1 Lvl) [address]05-27 08:23:00 Test Item Value Reference Range Interpretation Comments Chloride Lvl (test code = Chloride Lvl) 111 95-109 [place] [address]-05-27 08:23:00 Test Item Value Reference Range Interpretation Comments CO2 (test code = CO2) 28 24-32 [place] [address]-05-27 08:23:00 Test Item Value Reference Range Interpretation Comments Calcium Lvl (test code = Calcium Lvl) 8.8 8.5-10.5 [place] [address]-05-27 08:23:00 Test Item Value Reference Range Interpretation Comments Total Protein (test code = Total 5.9 6.4-8.4 Protein) [address]05-27 08:23:00 Test Item Value Reference Range Interpretation Comments Albumin Lvl (test code = Albumin Lvl) 2.2 3.5-5.0 [place] [address]-05-27 08:23:00 Test Item Value Reference Range Interpretation Comments ALT (test code = ALT) 29 See_Comment [Auto mated message] The system which ge nerated this result transmit gill reference range : <=65. The reference range was not used to interpr et this result as len l/abnormal. [address]05-27 08:23:00 Test Item Value Reference Range Interpretation Comments AST (test code = AST) 24 See_Comment [Auto mated message] The system which ge nerated this result transmit gill reference range : <=37. The reference range was not used to interpr et this result as len l/abnormal. [address]05-27 08:23:00 Test Item Value Reference Range Interpretation Comments Alk Phos (test code = Alk Phos) 56 39-136 [address]05-27 08:23:00 Test Item Value Reference Range Interpretation Comments Bili Total (test code = Bili Total) 0.2 0.2-1.[address]05-27 08:23:00 Test Item Value Reference Range Interpretation Comments AGAP (test code = AGAP) 8.6 10.0-20.[address]05-27 08:23:00 Test Item Value Reference Range Interpretation Comments B/C Ratio (test code = B/C Ratio) 30 1 6-[address]05-27 08:23:00 Test Item Value Reference Range Interpretation Comments Globulin (test code = Globulin) 3.7 2.7-4.[address]05-27 08:23:00 Test Item Value Reference Range Interpretation Comments A/G Ratio (test code = A/G Ratio) 0.6 1 0.7-1.6 [address]05-27 08:23:00 Test Item Value Reference Range Interpretation Comments eGFR (test code = eGFR) [address]05-27 08:23:00 Test Item Value Reference Range Interpretation Comments Segs (test code = Segs) 65.3 45.0-75.[address]05-27 08:23:00 Test Item Value Reference Range Interpretation Comments Lymphocytes (test code = Lymphocytes) 17.0 20.0-40.0 [place] [address]-05-27 08:23:00 Test Item Value Reference Range Interpretation Comments Monocytes (test code = Monocytes) 8.2 2.0-12.0 [place] [address]-05-27 08:23:00 Test Item Value Reference Range Interpretation Comments Eosinophils (test code = 9.1 See_Comment [A utomated message] The Eosinophils) system which ge nerated this result tra nsmitted reference range : <=4.0. The reference r abdifatah was not used to int erpret this result as normal/abnormal . [place] [address]-05-27 08:23:00 Test Item Value Reference Range Interpretation Comments Basophils (test code = 0.4 See_Comment [Aut omated message] The Basophils) system which ge nerated this result tra nsmitted reference range : <=1.0. The reference r abdifatah was not used to int erpret this result as normal/abnormal . [place] 052861-05-27 08:23:00 Test Item Value Reference Range Interpretation Comments Neutrophils # (test code = Neutrophils 5.6 1.5-8.1 #) [place] [address]-05-27 08:23:00 Test Item Value Reference Range Interpretation Comments Lymphocytes # (test code = Lymphocytes 1.4 1.0-5.5 #) [place] [address]-05-27 08:23:00 Test Item Value Reference Range Interpretation Comments Monocytes # (test code 0.7 See_Comment [Aut omated message] The = Monocytes #) system which generated this result tra nsmitted reference range : <=0.8. The reference r abdifatah was not used to int erpret this result as normal/abnormal . [place] [address]-05-27 08:23:00 Test Item Value Reference Range Interpretation Comments Eosinophils # (test code 0.8 See_Comment [A utomated message] The = Eosinophils #) system whic h generated this result tra nsmitted reference range : <=0.5. The reference r abdifatah was not used to int erpret this result as normal/abnormal . [place] [address]-05-27 08:23:00 Test Item Value Reference Range Interpretation Comments WBC (test code = WBC) 8.5 3.7-10.4 [place] [address]-05-27 08:23:00 Test Item Value Reference Range Interpretation Comments RBC (test code = RBC) 2.89 4.20-5.40 [place] [address]-05-27 08:23:00 Test Item Value Reference Range Interpretation Comments Hgb (test code = Hgb) 9.3 12.0-16.0 [place] [address]-05-27 08:23:00 Test Item Value Reference Range Interpretation Comments Hct (test code = Hct) 26.6 36.0-48.0 [place] [address]-05-27 08:23:00 Test Item Value Reference Range Interpretation Comments MCV (test code = MCV) 92.3 80.0-98.0 [place] [address]-05-27 08:23:00 Test Item Value Reference Range Interpretation Comments MCH (test code = MCH) 32.2 pg 27.0-31.0 [place] [address]-05-27 08:23:00 Test Item Value Reference Range Interpretation Comments MCHC (test code = MCHC) 34.9 32.0-36.0 [address]05-27 08:23:00 Test Item Value Reference Range Interpretation Comments RDW (test code = RDW) 14.6 11.5-14.[address]05-27 08:23:00 Test Item Value Reference Range Interpretation Comments Platelet (test code = Platelet) 270 133-450 [place] [address]-05-27 08:23:00 Test Item Value Reference Range Interpretation Comments MPV (test code = MPV) 7.7 7.4-10.4 [place] 878481-05-27 08:23:00 Test Item Value Reference Range Interpretation Comments Glucose Lvl (test code = Glucose Lvl) 91 70-99 [place] 878481-05-27 08:23:00 Test Item Value Reference Range Interpretation Comments BUN (test code = BUN) 25 7-22 [place] [address]-05-27 08:23:00 Test Item Value Reference Range Interpretation Comments Creatinine Lvl (test code = Creatinine 0.82 0.50-1.40 Lvl) [place] 878481-05-27 08:23:00 Test Item Value Reference Range Interpretation Comments Sodium Lvl (test code = Sodium Lvl) 144 135-145 [place] 878481-05-27 08:23:00 Test Item Value Reference Range Interpretation Comments Potassium Lvl (test code = Potassium 3.6 3.5-5.1 Lvl) [facility]2021-05-27 08:23:00 Test Item Value Reference Range Interpretation Comments Chloride Lvl (test code = Chloride Lvl) 111 95-109 [facility]GE[facility] [id number] 08:23:00 Test Item Value Reference Range Interpretation Comments CO2 (test code = CO2) 28 24-32 [place] [address]-05-27 08:23:00 Test Item Value Reference Range Interpretation Comments Calcium Lvl (test code = Calcium Lvl) 8.8 8.5-10.5 [facility] [id number] 08:23:00 Test Item Value Reference Range Interpretation Comments Total Protein (test code = Total 5.9 6.4-8.4 Protein) [address]05-27 08:23:00 Test Item Value Reference Range Interpretation Comments Albumin Lvl (test code = Albumin Lvl) 2.2 3.5-5.0 [facility] [id number] 08:23:00 Test Item Value Reference Range Interpretation Comments ALT (test code = ALT) 29 See_Comment [Auto mated message] The system which ge nerated this result transmit gill reference range : <=65. The reference range was not used to interpr et this result as len l/abnormal. [facility] [id number] 08:23:00 Test Item Value Reference Range Interpretation Comments AST (test code = AST) 24 See_Comment [Auto mated message] The system which ge nerated this result transmit gill reference range : <=37. The reference range was not used to interpr et this result as len l/abnormal. [facility] Chat& (ChatAnd) [id number] 08:23:00 Test Item Value Reference Range Interpretation Comments Alk Phos (test code = Alk Phos) 56 39-136 [facility] [id number] 08:23:00 Test Item Value Reference Range Interpretation Comments Bili Total (test code = Bili Total) 0.2 0.2-1.3 [facility] [id number] 08:23:00 Test Item Value Reference Range Interpretation Comments AGAP (test code = AGAP) 8.6 10.0-20.0 [facility] [id number] 08:23:00 Test Item Value Reference Range Interpretation Comments B/C Ratio (test code = B/C Ratio) 30 1 6-[address]05-27 08:23:00 Test Item Value Reference Range Interpretation Comments Globulin (test code = Globulin) 3.7 2.7-4.[address]05-27 08:23:00 Test Item Value Reference Range Interpretation Comments A/G Ratio (test code = A/G Ratio) 0.6 1 0.7-1.6 [address]27 08:23:00 Test Item Value Reference Range Interpretation Comments eGFR (test code = eGFR) [address]05-27 08:23:00 Test Item Value Reference Range Interpretation Comments Segs (test code = Segs) 65.3 45.0-75.0 [address]05-27 08:23:00 Test Item Value Reference Range Interpretation Comments Lymphocytes (test code = Lymphocytes) 17.0 20.0-40.0 [address]05-27 08:23:00 Test Item Value Reference Range Interpretation Comments Monocytes (test code = Monocytes) 8.2 2.0-12.0 [address]05-27 08:23:00 Test Item Value Reference Range Interpretation Comments Eosinophils (test code = 9.1 See_Comment [A utomated message] The Eosinophils) system which ge nerated this result tra nsmitted reference range : <=4.0. The reference r abdifatah was not used to int erpret this result as normal/abnormal . [address]05-27 08:23:00 Test Item Value Reference Range Interpretation Comments Basophils (test code = 0.4 See_Comment [Aut omated message] The Basophils) system which ge nerated this result tra nsmitted reference range : <=1.0. The reference r abdifatah was not used to int erpret this result as normal/abnormal . [address]05-27 08:23:00 Test Item Value Reference Range Interpretation Comments Neutrophils # (test code = Neutrophils 5.6 1.5-8.1 #) [address]05-27 08:23:00 Test Item Value Reference Range Interpretation Comments Lymphocytes # (test code = Lymphocytes 1.4 1.0-5.5 #) [facility] CypressVxkeebxRMZSDRWART0653-04-99 08:23:00 Test Item Value Reference Range Interpretation Comments Monocytes # (test code 0.7 See_Comment [Aut omated message] The = Monocytes #) system which generated this result tra nsmitted reference range : <=0.8. The reference r abdifatah was not used to int erpret this result as normal/abnormal . [facility] CypressBqtjkanSLVXIQNGYO7123-38-79 08:23:00 Test Item Value Reference Range Interpretation Comments Eosinophils # (test code 0.8 See_Comment [A utomated message] The = Eosinophils #) system whic h generated this result tra nsmitted reference range : <=0.5. The reference r abdifatah was not used to int erpret this result as normal/abnormal . [facility] CypressFjgqawkJXXDQTYWKK7297-61-06 08:23:00 Test Item Value Reference Range Interpretation Comments WBC (test code = WBC) 8.5 3.7-10.4 [facility] CypressOysrojuYEGXGTFHWM0026-99-27 08:23:00 Test Item Value Reference Range Interpretation Comments RBC (test code = RBC) 2.89 4.20-5.40 [facility] CypressMrxmeiyKAOFHQWWOE6766-89-49 08:23:00 Test Item Value Reference Range Interpretation Comments Hgb (test code = Hgb) 9.3 12.0-16.0 [facility] CypressBlexvbpNWRDWZHDPE8575-32-59 08:23:00 Test Item Value Reference Range Interpretation Comments Hct (test code = Hct) 26.6 36.0-48.0 [facility] CypressPgjwzkuXUJASCUUQE6532-28-36 08:23:00 Test Item Value Reference Range Interpretation Comments MCV (test code = MCV) 92.3 80.0-98.0 [place] 052861-05-27 08:23:00 Test Item Value Reference Range Interpretation Comments MCH (test code = MCH) 32.2 pg 27.0-31.0 [facility] CypressCfdmkosSDYTQYCUGX2302-49-97 08:23:00 Test Item Value Reference Range Interpretation Comments MCHC (test code = MCHC) 34.9 32.0-36.0 [facility] CypressMwwzenoNSYUXVALRE0440-26-79 08:23:00 Test Item Value Reference Range Interpretation Comments RDW (test code = RDW) 14.6 11.5-14.5 [place] [address]-05-27 08:23:00 Test Item Value Reference Range Interpretation Comments Platelet (test code = Platelet) 270 133-450 [place] [address]-05-27 08:23:00 Test Item Value Reference Range Interpretation Comments MPV (test code = MPV) 7.7 7.4-10.4 [place] [address]-05-26 05:55:00 Test Item Value Reference Range Interpretation Comments Procalcitonin Lvl (test 0.73 See_Comment [Au tomated message] code = Procalcitonin Lvl) Th e system which generated this result transmitted ref erence range: <=0.10. The reference range was not used to interpr et this result as normal/abnormal . [address]05-26 05:55:00 Test Item Value Reference Range Interpretation Comments Total Protein (test code = Total 6.4 6.4-8.4 Protein) [address]05-26 05:55:00 Test Item Value Reference Range Interpretation Comments Albumin Lvl (test code = Albumin Lvl) 2.4 3.5-5.0 [place] [address]-05-26 05:55:00 Test Item Value Reference Range Interpretation Comments ALT (test code = ALT) 26 See_Comment [Auto mated message] The system which ge nerated this result transmit gill reference range : <=65. The reference range was not used to interpr et this result as len l/abnormal. [place] [address]-05-26 05:55:00 Test Item Value Reference Range Interpretation Comments AST (test code = AST) 24 See_Comment [Auto mated message] The system which ge nerated this result transmit gill reference range : <=37. The reference range was not used to interpr et this result as len l/abnormal. [place] [address]-05-26 05:55:00 Test Item Value Reference Range Interpretation Comments Alk Phos (test code = Alk Phos) 64 39-136 [place] [address]-05-26 05:55:00 Test Item Value Reference Range Interpretation Comments Bili Total (test code = Bili Total) 0.2 0.2-1.3 [place] [address]-05-26 05:55:00 Test Item Value Reference Range Interpretation Comments B/C Ratio (test code = B/C Ratio) 26 1 6-25 [facility]2021-05-26 05:55:00 Test Item Value Reference Range Interpretation Comments Globulin (test code = Globulin) 4.0 2.7-4.2 [facility]2021-05-26 05:55:00 Test Item Value Reference Range Interpretation Comments A/G Ratio (test code = A/G Ratio) 0.6 1 0.7-1.6 [place] 052861-05-26 05:55:00 Test Item Value Reference Range Interpretation Comments WBC (test code = WBC) 13.1 3.7-10.4 [place] 052861-05-26 05:55:00 Test Item Value Reference Range Interpretation Comments RBC (test code = RBC) 3.73 4.20-5.40 [place] 052861-05-26 05:55:00 Test Item Value Reference Range Interpretation Comments Hgb (test code = Hgb) 11.5 12.0-16.0 [facility] CypressNrisdhaVLLFKTULEP4415-32-97 05:55:00 Test Item Value Reference Range Interpretation Comments Hct (test code = Hct) 34.5 36.0-48.0 [facility] CypressBhnqblbUXDPKKVQTO1658-62-64 05:55:00 Test Item Value Reference Range Interpretation Comments MCV (test code = MCV) 92.5 80.0-98.0 [facility] CypressCuivonfGOBIHEQYSO5780-26-36 05:55:00 Test Item Value Reference Range Interpretation Comments MCH (test code = MCH) 30.8 pg 27.0-31.0 [facility] CypressCmfuvltDMKSAGLSNG9738-02-26 05:55:00 Test Item Value Reference Range Interpretation Comments MCHC (test code = MCHC) 33.3 32.0-36.0 [place] 052861-05-26 05:55:00 Test Item Value Reference Range Interpretation Comments RDW (test code = RDW) 14.5 11.5-14.5 [facility] CypressOxbrdlwPRCNVHDJCJ7174-04-77 05:55:00 Test Item Value Reference Range Interpretation Comments Platelet (test code = Platelet) 309 133-450 [facility] CypressBxzhgdoZFGAESENWC1956-58-58 05:55:00 Test Item Value Reference Range Interpretation Comments MPV (test code = MPV) 8.2 7.4-10.4 [place] 052861-05-26 05:55:00 Test Item Value Reference Range Interpretation Comments Segs (test code = Segs) 88.3 45.0-75.0 [place] 052861-05-26 05:55:00 Test Item Value Reference Range Interpretation Comments Lymphocytes (test code = Lymphocytes) 3.4 20.0-40.0 [place] 052861-05-26 05:55:00 Test Item Value Reference Range Interpretation Comments Monocytes (test code = Monocytes) 3.5 2.0-12.0 [place] 052861-05-26 05:55:00 Test Item Value Reference Range Interpretation Comments Eosinophils (test code = 4.1 See_Comment [A utomated message] The Eosinophils) system which ge nerated this result tra nsmitted reference range : <=4.0. The reference r abdifatah was not used to int erpret this result as normal/abnormal . [facility] CypressJowelsgMQDLNSQUKN1284-22-27 05:55:00 Test Item Value Reference Range Interpretation Comments Basophils (test code = 0.7 See_Comment [Aut omated message] The Basophils) system which ge nerated this result tra nsmitted reference range : <=1.0. The reference r abdifatah was not used to int erpret this result as normal/abnormal . [facility] CypressHqexioiNPBXEUADOL2089-84-55 05:55:00 Test Item Value Reference Range Interpretation Comments Neutrophils # (test code = Neutrophils 11.6 1.5-8.1 #) [place] 052861-05-26 05:55:00 Test Item Value Reference Range Interpretation Comments Lymphocytes # (test code = Lymphocytes 0.4 1.0-5.5 #) [place] 052861-05-26 05:55:00 Test Item Value Reference Range Interpretation Comments Monocytes # (test code 0.5 See_Comment [Aut omated message] The = Monocytes #) system which generated this result tra nsmitted reference range : <=0.8. The reference r abdifatah was not used to int erpret this result as normal/abnormal . [place] 052861-05-26 05:55:00 Test Item Value Reference Range Interpretation Comments Eosinophils # (test code 0.5 See_Comment [A utomated message] The = Eosinophils #) system whic h generated this result tra nsmitted reference range : <=0.5. The reference r abdifatah was not used to int erpret this result as normal/abnormal . [place] 052861-05-26 05:55:00 Test Item Value Reference Range Interpretation Comments Basophils # (test code 0.1 See_Comment [Aut omated message] The = Basophils #) system which generated this result tra nsmitted reference range : <=0.2. The reference r abdifatah was not used to int erpret this result as normal/abnormal . [place] [address]-05-26 05:55:00 Test Item Value Reference Range Interpretation Comments Procalcitonin Lvl (test 0.73 See_Comment [Au tomated message] code = Procalcitonin Lvl) Th e system which generated this result transmitted ref erence range: <=0.10. The reference range was not used to interpr et this result as normal/abnormal . [place] [address]-05-26 05:55:00 Test Item Value Reference Range Interpretation Comments Total Protein (test code = Total 6.4 6.4-8.4 Protein) [address]05-26 05:55:00 Test Item Value Reference Range Interpretation Comments Albumin Lvl (test code = Albumin Lvl) 2.4 3.5-5.0 [place] [address]-05-26 05:55:00 Test Item Value Reference Range Interpretation Comments ALT (test code = ALT) 26 See_Comment [Auto mated message] The system which ge nerated this result transmit gill reference range : <=65. The reference range was not used to interpr et this result as len l/abnormal. [place] [address]-05-26 05:55:00 Test Item Value Reference Range Interpretation Comments AST (test code = AST) 24 See_Comment [Auto mated message] The system which ge nerated this result transmit gill reference range : <=37. The reference range was not used to interpr et this result as len l/abnormal. [place] [address]-05-26 05:55:00 Test Item Value Reference Range Interpretation Comments Alk Phos (test code = Alk Phos) 64 39-136 [place] [address]-05-26 05:55:00 Test Item Value Reference Range Interpretation Comments Bili Total (test code = Bili Total) 0.2 0.2-1.3 [place] 878481-05-26 05:55:00 Test Item Value Reference Range Interpretation Comments B/C Ratio (test code = B/C Ratio) 26 1 6-25 [place] 878481-05-26 05:55:00 Test Item Value Reference Range Interpretation Comments Globulin (test code = Globulin) 4.0 2.7-4.2 [place] 878481-05-26 05:55:00 Test Item Value Reference Range Interpretation Comments A/G Ratio (test code = A/G Ratio) 0.6 1 0.7-1.6 [place] [address]-05-26 05:55:00 Test Item Value Reference Range Interpretation Comments WBC (test code = WBC) 13.1 3.7-10.4 [place] 052861-05-26 05:55:00 Test Item Value Reference Range Interpretation Comments RBC (test code = RBC) 3.73 4.20-5.40 [place] 052861-05-26 05:55:00 Test Item Value Reference Range Interpretation Comments Hgb (test code = Hgb) 11.5 12.0-16.0 [place] 052861-05-26 05:55:00 Test Item Value Reference Range Interpretation Comments Hct (test code = Hct) 34.5 36.0-48.0 [place] [address]-05-26 05:55:00 Test Item Value Reference Range Interpretation Comments MCV (test code = MCV) 92.5 80.0-98.0 [place] [address]-05-26 05:55:00 Test Item Value Reference Range Interpretation Comments MCH (test code = MCH) 30.8 pg 27.0-31.0 [place] 052861-05-26 05:55:00 Test Item Value Reference Range Interpretation Comments MCHC (test code = MCHC) 33.3 32.0-36.0 [place] 052861-05-26 05:55:00 Test Item Value Reference Range Interpretation Comments RDW (test code = RDW) 14.5 11.5-14.5 [place] 052861-05-26 05:55:00 Test Item Value Reference Range Interpretation Comments Platelet (test code = Platelet) 309 133-450 [place] 052861-05-26 05:55:00 Test Item Value Reference Range Interpretation Comments MPV (test code = MPV) 8.2 7.4-10.4 [place] 052861-05-26 05:55:00 Test Item Value Reference Range Interpretation Comments Segs (test code = Segs) 88.3 45.0-75.0 [place] 052861-05-26 05:55:00 Test Item Value Reference Range Interpretation Comments Lymphocytes (test code = Lymphocytes) 3.4 20.0-40.0 [place] [address]-05-26 05:55:00 Test Item Value Reference Range Interpretation Comments Monocytes (test code = Monocytes) 3.5 2.0-12.0 [place] 052861-05-26 05:55:00 Test Item Value Reference Range Interpretation Comments Eosinophils (test code = 4.1 See_Comment [A utomated message] The Eosinophils) system which ge nerated this result tra nsmitted reference range : <=4.0. The reference r abdifatah was not used to int erpret this result as normal/abnormal . [facility]4950[facility]64-86 05:55:00 Test Item Value Reference Range Interpretation Comments Basophils (test code = 0.7 See_Comment [Aut omated message] The Basophils) system which ge nerated this result tra nsmitted reference range : <=1.0. The reference r abdifatah was not used to int erpret this result as normal/abnormal . [place] 052861-05-26 05:55:00 Test Item Value Reference Range Interpretation Comments Neutrophils # (test code = Neutrophils 11.6 1.5-8.1 #) [place] 052861-05-26 05:55:00 Test Item Value Reference Range Interpretation Comments Lymphocytes # (test code = Lymphocytes 0.4 1.0-5.5 #) [place] 052861-05-26 05:55:00 Test Item Value Reference Range Interpretation Comments Monocytes # (test code 0.5 See_Comment [Aut omated message] The = Monocytes #) system which generated this result tra nsmitted reference range : <=0.8. The reference r abdifatah was not used to int erpret this result as normal/abnormal . [place] 052861-05-26 05:55:00 Test Item Value Reference Range Interpretation Comments Eosinophils # (test code 0.5 See_Comment [A utomated message] The = Eosinophils #) system whic h generated this result tra nsmitted reference range : <=0.5. The reference r abdifatah was not used to int erpret this result as normal/abnormal . [place] 052861-05-26 05:55:00 Test Item Value Reference Range Interpretation Comments Basophils # (test code 0.1 See_Comment [Aut omated message] The = Basophils #) system which generated this result tra nsmitted reference range : <=0.2. The reference r abdifatah was not used to int erpret this result as normal/abnormal . [place] 052861-05-25 15:51:00 Test Item Value Reference Range Interpretation Comments Basophils # (test code 0.1 See_Comment [Aut omated message] The = Basophils #) system which generated this result tra nsmitted reference range : <=0.2. The reference r abdifatah was not used to int erpret this result as normal/abnormal . [facility]GdhakgjQQWGKETPBN5030-95-71 15:51:00 Test Item Value Reference Range Interpretation Comments Basophils # (test code 0.1 See_Comment [Aut omated message] The = Basophils #) system which generated this result tra nsmitted reference range : <=0.2. The reference r abdifatah was not used to int erpret this result as normal/abnormal . [facility]2021-05-24 05:39:00 Test Item Value Reference Range Interpretation Comments Glucose Lvl (test code = Glucose Lvl) 100 70-99 [facility] EFHKB0527-88-28 05:39:00 Test Item Value Reference Range Interpretation Comments BUN (test code = BUN) 21 7-22 [place] 878481-05-24 05:39:00 Test Item Value Reference Range Interpretation Comments Creatinine Lvl (test code = Creatinine 0.89 0.50-1.40 Lvl) [facility]2021-05-24 05:39:00 Test Item Value Reference Range Interpretation Comments Sodium Lvl (test code = Sodium Lvl) 144 135-145 [facility]2021-05-24 05:39:00 Test Item Value Reference Range Interpretation Comments Potassium Lvl (test code = Potassium 4.1 3.5-5.1 Lvl) [place] 878481-05-24 05:39:00 Test Item Value Reference Range Interpretation Comments Chloride Lvl (test code = Chloride Lvl) 110 95-109 [place] 878481-05-24 05:39:00 Test Item Value Reference Range Interpretation Comments CO2 (test code = CO2) 30 24-32 [place] 878481-05-24 05:39:00 Test Item Value Reference Range Interpretation Comments Calcium Lvl (test code = Calcium Lvl) 8.9 8.5-10.5 [place] 878481-05-24 05:39:00 Test Item Value Reference Range Interpretation Comments AGAP (test code = AGAP) 8.1 10.0-20.0 [place] 878481-05-24 05:39:00 Test Item Value Reference Range Interpretation Comments eGFR (test code = eGFR) 73 [place] 052861-05-24 05:39:00 Test Item Value Reference Range Interpretation Comments WBC (test code = WBC) 7.9 3.7-10.4 [place] 052861-05-24 05:39:00 Test Item Value Reference Range Interpretation Comments RBC (test code = RBC) 3.06 4.20-5.40 [place] 052861-05-24 05:39:00 Test Item Value Reference Range Interpretation Comments Hgb (test code = Hgb) 9.8 12.0-16.0 [place] 052861-05-24 05:39:00 Test Item Value Reference Range Interpretation Comments Hct (test code = Hct) 28.6 36.0-48.0 [place] [address]-05-24 05:39:00 Test Item Value Reference Range Interpretation Comments MCV (test code = MCV) 93.3 80.0-98.0 [place] 052861-05-24 05:39:00 Test Item Value Reference Range Interpretation Comments MCH (test code = MCH) 32.0 pg 27.0-31.0 [place] 052861-05-24 05:39:00 Test Item Value Reference Range Interpretation Comments MCHC (test code = MCHC) 34.3 32.0-36.0 [facility] CypressYkjodwkNTZVRIDTOB1264-27-59 05:39:00 Test Item Value Reference Range Interpretation Comments RDW (test code = RDW) 14.1 11.5-14.5 [facility] CypressLzoahfxXXNLIOFLEJ6728-76-88 05:39:00 Test Item Value Reference Range Interpretation Comments Platelet (test code = Platelet) 274 133-450 [facility] CypressPwxuzieWDGTXDJFPX3822-89-24 05:39:00 Test Item Value Reference Range Interpretation Comments MPV (test code = MPV) 8.1 7.4-10.4 [facility] CypressUxzxwioUBZJESLBXL2692-45-38 05:39:00 Test Item Value Reference Range Interpretation Comments Segs (test code = Segs) 67.3 45.0-75.0 [facility] CypressUiwfahiIFOIYEDMQG1316-23-48 05:39:00 Test Item Value Reference Range Interpretation Comments Lymphocytes (test code = Lymphocytes) 14.3 20.0-40.0 [facility] CypressGwzplrkYABFWQBCTC5248-88-59 05:39:00 Test Item Value Reference Range Interpretation Comments Monocytes (test code = Monocytes) 10.9 2.0-12.0 [facility] CypressHftgxtbOHOEKFELLN2164-40-62 05:39:00 Test Item Value Reference Range Interpretation Comments Eosinophils (test code = 6.7 See_Comment [A utomated message] The Eosinophils) system which ge nerated this result tra nsmitted reference range : <=4.0. The reference r abdifatah was not used to int erpret this result as normal/abnormal . [facility] CypressQdffaqiIRKAACEKDK2072-85-55 05:39:00 Test Item Value Reference Range Interpretation Comments Basophils (test code = 0.8 See_Comment [Aut omated message] The Basophils) system which ge nerated this result tra nsmitted reference range : <=1.0. The reference r abdifatah was not used to int erpret this result as normal/abnormal . [facility] CypressYuthhvqUUGMQYLUHK6709-88-06 05:39:00 Test Item Value Reference Range Interpretation Comments Neutrophils # (test code = Neutrophils 5.3 1.5-8.1 #) [facility] CypressJqmlgoxOCOUWCDXBZ7552-40-79 05:39:00 Test Item Value Reference Range Interpretation Comments Lymphocytes # (test code = Lymphocytes 1.1 1.0-5.5 #) [place] 052861-05-24 05:39:00 Test Item Value Reference Range Interpretation Comments Monocytes # (test code 0.9 See_Comment [Aut omated message] The = Monocytes #) system which generated this result tra nsmitted reference range : <=0.8. The reference r abdifatah was not used to int erpret this result as normal/abnormal . [place] [address]-05-24 05:39:00 Test Item Value Reference Range Interpretation Comments Eosinophils # (test code 0.5 See_Comment [A utomated message] The = Eosinophils #) system whic h generated this result tra nsmitted reference range : <=0.5. The reference r abdifatah was not used to int erpret this result as normal/abnormal . [place] 052861-05-24 05:39:00 Test Item Value Reference Range Interpretation Comments Basophils # (test code 0.1 See_Comment [Aut omated message] The = Basophils #) system which generated this result tra nsmitted reference range : <=0.2. The reference r abdifatah was not used to int erpret this result as normal/abnormal . [place] 878481-05-24 05:39:00 Test Item Value Reference Range Interpretation Comments Glucose Lvl (test code = Glucose Lvl) 100 70-99 [place] 878481-05-24 05:39:00 Test Item Value Reference Range Interpretation Comments BUN (test code = BUN) 21 7-22 [place] 878481-05-24 05:39:00 Test Item Value Reference Range Interpretation Comments Creatinine Lvl (test code = Creatinine 0.89 0.50-1.40 Lvl) [place] 878481-05-24 05:39:00 Test Item Value Reference Range Interpretation Comments Sodium Lvl (test code = Sodium Lvl) 144 135-145 [place] 878481-05-24 05:39:00 Test Item Value Reference Range Interpretation Comments Potassium Lvl (test code = Potassium 4.1 3.5-5.1 Lvl) [place] 878481-05-24 05:39:00 Test Item Value Reference Range Interpretation Comments Chloride Lvl (test code = Chloride Lvl) 110 95-109 [place] 878481-05-24 05:39:00 Test Item Value Reference Range Interpretation Comments CO2 (test code = CO2) 30 24-32 [facility]2021-05-24 05:39:00 Test Item Value Reference Range Interpretation Comments Calcium Lvl (test code = Calcium Lvl) 8.9 8.5-10.5 [facility]2021-05-24 05:39:00 Test Item Value Reference Range Interpretation Comments AGAP (test code = AGAP) 8.1 10.0-20.0 [facility]2021-05-24 05:39:00 Test Item Value Reference Range Interpretation Comments eGFR (test code = eGFR) 73 [facility] CypressEbvatfxBMGQTANDWM7746-89-61 05:39:00 Test Item Value Reference Range Interpretation Comments WBC (test code = WBC) 7.9 3.7-10.4 [facility] CypressMlxweexSZDKKLTXRM0723-54-31 05:39:00 Test Item Value Reference Range Interpretation Comments RBC (test code = RBC) 3.06 4.20-5.40 [facility] CypressTvicifsEJKMVNWNSX3543-40-47 05:39:00 Test Item Value Reference Range Interpretation Comments Hgb (test code = Hgb) 9.8 12.0-16.0 [facility] CypressEsvehdzMPLUVSVNUP9979-79-85 05:39:00 Test Item Value Reference Range Interpretation Comments Hct (test code = Hct) 28.6 36.0-48.0 [facility] CypressMmoxoqhWKHBHFKGPR1507-62-45 05:39:00 Test Item Value Reference Range Interpretation Comments MCV (test code = MCV) 93.3 80.0-98.0 [facility] CypressUfiglsyHCHMMENLQP2471-45-81 05:39:00 Test Item Value Reference Range Interpretation Comments MCH (test code = MCH) 32.0 pg 27.0-31.0 [facility] CypressUxerpqaVMYLYXJVPQ4594-40-40 05:39:00 Test Item Value Reference Range Interpretation Comments MCHC (test code = MCHC) 34.3 32.0-36.0 [facility] CypressXdlyumgEZRCOHYSGC9441-33-69 05:39:00 Test Item Value Reference Range Interpretation Comments RDW (test code = RDW) 14.1 11.5-14.5 [facility] CypressHourbpfMHWTTUPLZI8369-19-71 05:39:00 Test Item Value Reference Range Interpretation Comments Platelet (test code = Platelet) 274 133-450 [facility] CypressWssajxqIDLEXHJXDD2291-39-79 05:39:00 Test Item Value Reference Range Interpretation Comments MPV (test code = MPV) 8.1 7.4-10.4 [place] 052861-05-24 05:39:00 Test Item Value Reference Range Interpretation Comments Segs (test code = Segs) 67.3 45.0-75.0 [facility] CypressAxulzesQSPGTCKVLZ7081-22-97 05:39:00 Test Item Value Reference Range Interpretation Comments Lymphocytes (test code = Lymphocytes) 14.3 20.0-40.0 [facility] CypressNxlqsmeVUXITLIBNG7977-23-56 05:39:00 Test Item Value Reference Range Interpretation Comments Monocytes (test code = Monocytes) 10.9 2.0-12.0 [facility] CypressYjegaidXBJNIQYNUW1648-23-77 05:39:00 Test Item Value Reference Range Interpretation Comments Eosinophils (test code = 6.7 See_Comment [A utomated message] The Eosinophils) system which ge nerated this result tra nsmitted reference range : <=4.0. The reference r abdifatah was not used to int erpret this result as normal/abnormal . [facility] CypressIdlzdktBJLIHZBADZ5341-59-36 05:39:00 Test Item Value Reference Range Interpretation Comments Basophils (test code = 0.8 See_Comment [Aut omated message] The Basophils) system which ge nerated this result tra nsmitted reference range : <=1.0. The reference r abdifatah was not used to int erpret this result as normal/abnormal . [facility] CypressWoxvnfkFIKDBQQLIV1434-50-92 05:39:00 Test Item Value Reference Range Interpretation Comments Neutrophils # (test code = Neutrophils 5.3 1.5-8.1 #) [facility] CypressQejmjxdLYXDNCGEKL1517-60-65 05:39:00 Test Item Value Reference Range Interpretation Comments Lymphocytes # (test code = Lymphocytes 1.1 1.0-5.5 #) [place] 052861-05-24 05:39:00 Test Item Value Reference Range Interpretation Comments Monocytes # (test code 0.9 See_Comment [Aut omated message] The = Monocytes #) system which generated this result tra nsmitted reference range : <=0.8. The reference r abdifatah was not used to int erpret this result as normal/abnormal . [place] 052861-05-24 05:39:00 Test Item Value Reference Range Interpretation Comments Eosinophils # (test code 0.5 See_Comment [A utomated message] The = Eosinophils #) system whic h generated this result tra nsmitted reference range : <=0.5. The reference r abdifatah was not used to int erpret this result as normal/abnormal . [facility]jDA[facility]YB[facility]AUZU[facility]39[facility]-31 05:39:00 Test Item Value Reference Range Interpretation Comments Basophils # (test code 0.1 See_Comment [Aut omated message] The = Basophils #) system which generated this result tra nsmitted reference range : <=0.2. The reference r abdifatah was not used to int erpret this result as normal/abnormal . [facility] YLVUCNDKTL4954-11-43 02:08:00 Test Item Value Reference Range Interpretation Comments Reason for Order (test Enteric fever (09/17/20 code = Reason for 9:08 PM) Order) [facility]2021-05-24 02:08:00 Test Item Value Reference Range Interpretation Comments Campylobacter grp (test Not Detected code = Campylobacter grp) (09/17/20 9:08 PM) [facility]:08:00 Test Item Value Reference Range Interpretation Comments Salmonella spp. (test Not Detected (09/17/20 code = Salmonella spp.) 9:08 PM) [facility] KHVESWKSPZ3747[facility]23-99 02:08:00 Test Item Value Reference Range Interpretation Comments Shigella spp. (test Not Detected (09/17/20 code = Shigella spp.) 9:08 PM) [facility] [id number] 02:08:00 Test Item Value Reference Range Interpretation Comments Vibrio grp (test code Not Detected (09/17/20 = Vibrio grp) 9:08 PM) [facility] VHNKPNWWZQ6190-66-48 02:08:00 Test Item Value Reference Range Interpretation Comments Yersinia enterocolitica Not Detected (test code = Yersinia (09/17/20 9:08 PM) enterocolitica) [facility] AH[facility]TXXGYI2098[facility]36-08 02:08:00 Test Item Value Reference Range Interpretation Comments Shiga Toxin I (test Not Detected (09/17/20 code = Shiga Toxin I) 9:08 PM) [facility]2021-05-24 02:08:00 Test Item Value Reference Range Interpretation Comments Shiga Toxin II (test Not Detected (09/17/20 code = Shiga Toxin 9:08 PM) II) [place] 227221-05-24 02:08:00 Test Item Value Reference Range Interpretation Comments Norovirus (GI/GII) Not Detected (09/17/20 (test code = Norovirus 9:08 PM) (GI/GII)) [place] 227221-05-24 02:08:00 Test Item Value Reference Range Interpretation Comments Rotavirus (grp A) (test Not Detected (09/17/20 code = Rotavirus (grp 9:08 PM) A)) [place] 227221-05-24 02:08:00 Test Item Value Reference Range Interpretation Comments C difficile DNA (test Negative (09/17/20 9:08 code = C difficile DNA) PM) [place] 227221-05-24 02:08:00 Test Item Value Reference Range Interpretation Comments Reason for Order (test Enteric fever (09/17/20 code = Reason for 9:08 PM) Order) [facility]2021-05-24 02:08:00 Test Item Value Reference Range Interpretation Comments Campylobacter grp (test Not Detected code = Campylobacter grp) (09/17/20 9:08 PM) [facility]2021-05-24 02:08:00 Test Item Value Reference Range Interpretation Comments Salmonella spp. (test Not Detected (09/17/20 code = Salmonella spp.) 9:08 PM) [facility]2021-05-24 02:08:00 Test Item Value Reference Range Interpretation Comments Shigella spp. (test Not Detected (09/17/20 code = Shigella spp.) 9:08 PM) [facility]2021-05-24 02:08:00 Test Item Value Reference Range Interpretation Comments Vibrio grp (test code Not Detected (09/17/20 = Vibrio grp) 9:08 PM) [place] 227221-05-24 02:08:00 Test Item Value Reference Range Interpretation Comments Yersinia enterocolitica Not Detected (test code = Yersinia (09/17/20 9:08 PM) enterocolitica) [facility] DAWNJQMQDU1489-55-35 02:08:00 Test Item Value Reference Range Interpretation Comments Shiga Toxin I (test Not Detected (09/17/20 code = Shiga Toxin I) 9:08 PM) [facility] [id number] 02:08:00 Test Item Value Reference Range Interpretation Comments Shiga Toxin II (test Not Detected (09/17/20 code = Shiga Toxin 9:08 PM) II) [facility]2021-05-24 02:08:00 Test Item Value Reference Range Interpretation Comments Norovirus (GI/GII) Not Detected (09/17/20 (test code = Norovirus 9:08 PM) (GI/GII)) [place] 227221-05-24 02:08:00 Test Item Value Reference Range Interpretation Comments Rotavirus (grp A) (test Not Detected (09/17/20 code = Rotavirus (grp 9:08 PM) A)) [facility]2021-05-24 02:08:00 Test Item Value Reference Range Interpretation Comments C difficile DNA (test Negative (09/17/20 9:08 code = C difficile DNA) PM) [facility]2021-05-23 14:13:00 Test Item Value Reference Range Interpretation Comments Tube Num CSF (test code = Tube Num CSF) 3 1 [facility]2021-05-23 14:13:00 Test Item Value Reference Range Interpretation Comments Color CSF (test code Colorless (09/17/20 9:13 = Color CSF) AM) [facility]2021-05-23 14:13:00 Test Item Value Reference Range Interpretation Comments Clarity CSF (test code = Clear (09/17/20 9:13 Clarity CSF) AM) [facility]2021-05-23 14:13:00 Test Item Value Reference Range Interpretation Comments Supernat CSF (test Colorless (09/17/20 9:13 code = Supernat CSF) AM) [facility]2021-05-23 14:13:00 Test Item Value Reference Range Interpretation Comments Nucleated Cells CSF 4 See_Comment [Automa gill message] The (test code = Nucleated syste m which generated Cells CSF) this result tra nsmitted reference range : <=53. The reference r abdifatah was not used to int erpret this result as normal/abnormal . [facility]ominumHLGBJY0601-29-50 14:13:00 Test Item Value Reference Range Interpretation Comments RBC CSF (test code = 33 See_Comment [Autom ated message] The RBC CSF) system which ge nerated this result transmit gill reference range : <=03. The reference range was not used to interpr et this result as len l/abnormal. [facility] [id number] 14:13:00 Test Item Value Reference Range Interpretation Comments Comment CSF (test Differential not code = Comment CSF) performed on WBC count of less than 5. [facility] Center[facility]ominumSOWVOJ0761-66-77 14:13:00 Test Item Value Reference Range Interpretation Comments Tube Num CSF (test code = Tube Num CSF) 1 1 [facility] CenterNominumMTNDZM1433-83-36 14:13:00 Test Item Value Reference Range Interpretation Comments Color CSF (test code Colorless (09/17/20 9:13 = Color CSF) AM) [facility] CenterNominumSVUANY6432-93-25 14:13:00 Test Item Value Reference Range Interpretation Comments Clarity CSF (test code Slight *ABN*(09/17/20 = Clarity CSF) 9:13 AM) [facility] CenterNominumOKTHEY5757-48-59 14:13:00 Test Item Value Reference Range Interpretation Comments Supernat CSF (test Colorless (09/17/20 9:13 code = Supernat CSF) AM) [facility] [id number] 14:13:00 Test Item Value Reference Range Interpretation Comments Nucleated Cells CSF 2 See_Comment [Automa gill message] The (test code = Nucleated syste m which generated Cells CSF) this result tra nsmitted reference range : <=53. The reference r abdifatah was not used to int erpret this result as normal/abnormal . [facility] [id number] 14:13:00 Test Item Value Reference Range Interpretation Comments RBC CSF (test code = 690 See_Comment [Autom ated message] The RBC CSF) system which ge nerated this result transmit gill reference range : <=03. The reference range was not used to interpr et this result as len l/abnormal. [facility] [id number] 14:13:00 Test Item Value Reference Range Interpretation Comments Comment CSF (test Differential not code = Comment CSF) performed on WBC count of less than 5. [facility] [id number] 14:13:00 Test Item Value Reference Range Interpretation Comments Protein CSF (test code = Protein CSF) 64 15-45 [facility] [id number] 14:13:00 Test Item Value Reference Range Interpretation Comments Glucose CSF (test code = Glucose CSF) 57 45-80 [facility] [id number] 14:13:00 Test Item Value Reference Range Interpretation Comments Gram Stain Report Gram Stain Performed By: (test code = Gram [facility] St[facility] Report) [facility] w/Gram [id number] 14:13:00 Test Item Value Reference Range Interpretation Comments Culture: CSF w/Gram Stain (test No Growth code = Culture: CSF w/Gram Stain) [facility]2021-05-23 14:13:00 Test Item Value Reference Range Interpretation Comments Tube Num CSF (test code = Tube Num CSF) 3 1 [facility]2021-05-23 14:13:00 Test Item Value Reference Range Interpretation Comments Color CSF (test code Colorless (09/17/20 9:13 = Color CSF) AM) [facility]2021-05-23 14:13:00 Test Item Value Reference Range Interpretation Comments Clarity CSF (test code = Clear (09/17/20 9:13 Clarity CSF) AM) [facility]2021-05-23 14:13:00 Test Item Value Reference Range Interpretation Comments Supernat CSF (test Colorless (09/17/20 9:13 code = Supernat CSF) AM) [facility]2021-05-23 14:13:00 Test Item Value Reference Range Interpretation Comments Nucleated Cells CSF 4 See_Comment [Automa gill message] The (test code = Nucleated syste m which generated Cells CSF) this result tra nsmitted reference range : <=53. The reference r abdifatah was not used to int erpret this result as normal/abnormal . [facility]2021-05-23 14:13:00 Test Item Value Reference Range Interpretation Comments RBC CSF (test code = 33 See_Comment [Autom ated message] The RBC CSF) system which ge nerated this result transmit gill reference range : <=03. The reference range was not used to interpr et this result as len l/abnormal. [facility] [id number] 14:13:00 Test Item Value Reference Range Interpretation Comments Comment CSF (test Differential not code = Comment CSF) performed on WBC count of less than 5. [facility] [id number] 14:13:00 Test Item Value Reference Range Interpretation Comments Tube Num CSF (test code = Tube Num CSF) 1 1 [facility] [id number] 14:13:00 Test Item Value Reference Range Interpretation Comments Color CSF (test code Colorless (09/17/20 9:13 = Color CSF) AM) [facility] [id number] 14:13:00 Test Item Value Reference Range Interpretation Comments Clarity CSF (test code Slight *ABN*(09/17/20 = Clarity CSF) 9:13 AM) [facility] [id number] 14:13:00 Test Item Value Reference Range Interpretation Comments Supernat CSF (test Colorless (09/17/20 9:13 code = Supernat CSF) AM) [facility] [id number] 14:13:00 Test Item Value Reference Range Interpretation Comments Nucleated Cells CSF 2 See_Comment [Automa gill message] The (test code = Nucleated syste m which generated Cells CSF) this result tra nsmitted reference range : <=53. The reference r abdifatah was not used to int erpret this result as normal/abnormal . [facility] [id number] 14:13:00 Test Item Value Reference Range Interpretation Comments RBC CSF (test code = 690 See_Comment [Autom ated message] The RBC CSF) system which ge nerated this result transmit gill reference range : <=03. The reference range was not used to interpr et this result as len l/abnormal. [facility] [id number] 14:13:00 Test Item Value Reference Range Interpretation Comments Comment CSF (test Differential not code = Comment CSF) performed on WBC count of less than 5. [facility] [id number] 14:13:00 Test Item Value Reference Range Interpretation Comments Protein CSF (test code = Protein CSF) 64 15-45 [facility] [id number] 14:13:00 Test Item Value Reference Range Interpretation Comments Glucose CSF (test code = Glucose CSF) 57 45-80 [facility] [id number] 14:13:00 Test Item Value Reference Range Interpretation Comments Gram Stain Report Gram Stain Performed By: (test code = Gram [facility] Stain Report) [facility] CSF w/Gram [id number] 14:13:00 Test Item Value Reference Range Interpretation Comments Culture: CSF w/Gram Stain (test No Growth code = Culture: CSF w/Gram Stain) [facility] Re[id number] 12:07:00 Test Item Value Reference Range Interpretation Comments Vanco Tr (test code = Vanco Tr) 14.6 [facility]PDLRBDEZHM6531[facility] 12:07:00 Test Item Value Reference Range Interpretation Comments Vanco Tr TND (test code = Vanco Tr 0800 1 TND) [place] [id number] 12:07:00 Test Item Value Reference Range Interpretation Comments Vanco Tr (test code = Vanco Tr) 14.6 [facility] Reso[id number] 12:07:00 Test Item Value Reference Range Interpretation Comments Vanco Tr TND (test code = Vanco Tr 0800 1 TND) [facility] [id number] 06:35:00 Test Item Value Reference Range Interpretation Comments Glucose Lvl (test code = Glucose Lvl) 113 70-99 [facility] [id number] 06:35:00 Test Item Value Reference Range Interpretation Comments BUN (test code = BUN) 21 7-22 [facility] [id number] 06:35:00 Test Item Value Reference Range Interpretation Comments Creatinine Lvl (test code = Creatinine 1.07 0.50-1.40 Lvl) [facility] [id number] 06:35:00 Test Item Value Reference Range Interpretation Comments Sodium Lvl (test code = Sodium Lvl) 142 135-145 [facility]2021-05-23 06:35:00 Test Item Value Reference Range Interpretation Comments Potassium Lvl (test code = Potassium 4.1 3.5-5.1 Lvl) [facility] [id number] 06:35:00 Test Item Value Reference Range Interpretation Comments Chloride Lvl (test code = Chloride Lvl) 107 95-109 [facility] [id number] 06:35:00 Test Item Value Reference Range Interpretation Comments CO2 (test code = CO2) 28 24-32 [place] 878481-05-23 06:35:00 Test Item Value Reference Range Interpretation Comments Calcium Lvl (test code = Calcium Lvl) 9.3 8.5-10.5 [place] 878481-05-23 06:35:00 Test Item Value Reference Range Interpretation Comments AGAP (test code = AGAP) 11.1 10.0-20.0 [place] 878481-05-23 06:35:00 Test Item Value Reference Range Interpretation Comments eGFR (test code = eGFR) 59 [place] 052861-05-23 06:35:00 Test Item Value Reference Range Interpretation Comments WBC (test code = WBC) 10.1 3.7-10.4 [place] 052861-05-23 06:35:00 Test Item Value Reference Range Interpretation Comments RBC (test code = RBC) 3.07 4.20-5.40 [place] 052861-05-23 06:35:00 Test Item Value Reference Range Interpretation Comments Hgb (test code = Hgb) 9.8 12.0-16.0 [place] [address]-05-23 06:35:00 Test Item Value Reference Range Interpretation Comments Hct (test code = Hct) 28.5 36.0-48.0 [place] 052861-05-23 06:35:00 Test Item Value Reference Range Interpretation Comments MCV (test code = MCV) 93.0 80.0-98.0 [place] [address]-05-23 06:35:00 Test Item Value Reference Range Interpretation Comments MCH (test code = MCH) 31.9 pg 27.0-31.0 [place] [address]-05-23 06:35:00 Test Item Value Reference Range Interpretation Comments MCHC (test code = MCHC) 34.3 32.0-36.0 [place] [address]-05-23 06:35:00 Test Item Value Reference Range Interpretation Comments RDW (test code = RDW) 14.2 11.5-14.5 [place] 052861-05-23 06:35:00 Test Item Value Reference Range Interpretation Comments Platelet (test code = Platelet) 271 133-450 [place] [address]-05-23 06:35:00 Test Item Value Reference Range Interpretation Comments MPV (test code = MPV) 7.8 7.4-10.4 [place] [address]-05-23 06:35:00 Test Item Value Reference Range Interpretation Comments Segs (test code = Segs) 76.2 45.0-75.0 [place] [address]-05-23 06:35:00 Test Item Value Reference Range Interpretation Comments Lymphocytes (test code = Lymphocytes) 8.9 20.0-40.0 [place] [address]-05-23 06:35:00 Test Item Value Reference Range Interpretation Comments Monocytes (test code = Monocytes) 8.4 2.0-12.0 [place] [address]-05-23 06:35:00 Test Item Value Reference Range Interpretation Comments Eosinophils (test code = 5.5 See_Comment [A utomated message] The Eosinophils) system which ge nerated this result tra nsmitted reference range : <=4.0. The reference r abdifatah was not used to int erpret this result as normal/abnormal . [place] [address]-05-23 06:35:00 Test Item Value Reference Range Interpretation Comments Basophils (test code = 1.0 See_Comment [Aut omated message] The Basophils) system which ge nerated this result tra nsmitted reference range : <=1.0. The reference r abdifatah was not used to int erpret this result as normal/abnormal . [place] 052861-05-23 06:35:00 Test Item Value Reference Range Interpretation Comments Neutrophils # (test code = Neutrophils 7.7 1.5-8.1 #) [place] [address]-05-23 06:35:00 Test Item Value Reference Range Interpretation Comments Lymphocytes # (test code = Lymphocytes 0.9 1.0-5.5 #) [place] [address]-05-23 06:35:00 Test Item Value Reference Range Interpretation Comments Monocytes # (test code 0.9 See_Comment [Aut omated message] The = Monocytes #) system which generated this result tra nsmitted reference range : <=0.8. The reference r abdifatah was not used to int erpret this result as normal/abnormal . [place] [address]-05-23 06:35:00 Test Item Value Reference Range Interpretation Comments Eosinophils # (test code 0.6 See_Comment [A utomated message] The = Eosinophils #) system whic h generated this result tra nsmitted reference range : <=0.5. The reference r abdifatah was not used to int erpret this result as normal/abnormal . [place] [address]-05-23 06:35:00 Test Item Value Reference Range Interpretation Comments Basophils # (test code 0.1 See_Comment [Aut omated message] The = Basophils #) system which generated this result tra nsmitted reference range : <=0.2. The reference r abdifatah was not used to int erpret this result as normal/abnormal . [place] [address]-05-23 06:35:00 Test Item Value Reference Range Interpretation Comments Glucose Lvl (test code = Glucose Lvl) 113 70-99 [place] [address]-05-23 06:35:00 Test Item Value Reference Range Interpretation Comments BUN (test code = BUN) 21 7-22 [place] [address]-05-23 06:35:00 Test Item Value Reference Range Interpretation Comments Creatinine Lvl (test code = Creatinine 1.07 0.50-1.40 Lvl) [place] [address]-05-23 06:35:00 Test Item Value Reference Range Interpretation Comments Sodium Lvl (test code = Sodium Lvl) 142 135-145 [place] [address]-05-23 06:35:00 Test Item Value Reference Range Interpretation Comments Potassium Lvl (test code = Potassium 4.1 3.5-5.1 Lvl) [place] [address]-05-23 06:35:00 Test Item Value Reference Range Interpretation Comments Chloride Lvl (test code = Chloride Lvl) 107 95-109 [facility] [id number] 06:35:00 Test Item Value Reference Range Interpretation Comments CO2 (test code = CO2) 28 24-32 [place] 878481-05-23 06:35:00 Test Item Value Reference Range Interpretation Comments Calcium Lvl (test code = Calcium Lvl) 9.3 8.5-10.5 [facility] [id number] 06:35:00 Test Item Value Reference Range Interpretation Comments AGAP (test code = AGAP) 11.1 10.0-20.0 [facility]2021-05-23 06:35:00 Test Item Value Reference Range Interpretation Comments eGFR (test code = eGFR) 59 [facility]DqowyxdYBXEQCHXOX3539-52-27 06:35:00 Test Item Value Reference Range Interpretation Comments WBC (test code = WBC) 10.1 3.7-10.4 [place] 052861-05-23 06:35:00 Test Item Value Reference Range Interpretation Comments RBC (test code = RBC) 3.07 4.20-5.40 [place] 052861-05-23 06:35:00 Test Item Value Reference Range Interpretation Comments Hgb (test code = Hgb) 9.8 12.0-16.0 [place] 052861-05-23 06:35:00 Test Item Value Reference Range Interpretation Comments Hct (test code = Hct) 28.5 36.0-48.0 [place] 052861-05-23 06:35:00 Test Item Value Reference Range Interpretation Comments MCV (test code = MCV) 93.0 80.0-98.0 [place] 052861-05-23 06:35:00 Test Item Value Reference Range Interpretation Comments MCH (test code = MCH) 31.9 pg 27.0-31.0 [facility] [id number] 06:35:00 Test Item Value Reference Range Interpretation Comments MCHC (test code = MCHC) 34.3 32.0-36.0 [place] 052861-05-23 06:35:00 Test Item Value Reference Range Interpretation Comments RDW (test code = RDW) 14.2 11.5-14.5 [place] [address]-05-23 06:35:00 Test Item Value Reference Range Interpretation Comments Platelet (test code = Platelet) 271 133-450 [facility] CypressNmjkwynCXIAGDQLUC6630-68-42 06:35:00 Test Item Value Reference Range Interpretation Comments MPV (test code = MPV) 7.8 7.4-10.4 [place] 052861-05-23 06:35:00 Test Item Value Reference Range Interpretation Comments Segs (test code = Segs) 76.2 45.0-75.0 [place] 052861-05-23 06:35:00 Test Item Value Reference Range Interpretation Comments Lymphocytes (test code = Lymphocytes) 8.9 20.0-40.0 [place] 052861-05-23 06:35:00 Test Item Value Reference Range Interpretation Comments Monocytes (test code = Monocytes) 8.4 2.0-12.0 [place] [address]-05-23 06:35:00 Test Item Value Reference Range Interpretation Comments Eosinophils (test code = 5.5 See_Comment [A utomated message] The Eosinophils) system which ge nerated this result tra nsmitted reference range : <=4.0. The reference r abdifatah was not used to int erpret this result as normal/abnormal . [place] [address]-05-23 06:35:00 Test Item Value Reference Range Interpretation Comments Basophils (test code = 1.0 See_Comment [Aut omated message] The Basophils) system which ge nerated this result tra nsmitted reference range : <=1.0. The reference r abdifatah was not used to int erpret this result as normal/abnormal . [place] 052861-05-23 06:35:00 Test Item Value Reference Range Interpretation Comments Neutrophils # (test code = Neutrophils 7.7 1.5-8.1 #) [place] [address]-05-23 06:35:00 Test Item Value Reference Range Interpretation Comments Lymphocytes # (test code = Lymphocytes 0.9 1.0-5.5 #) [place] 052861-05-23 06:35:00 Test Item Value Reference Range Interpretation Comments Monocytes # (test code 0.9 See_Comment [Aut omated message] The = Monocytes #) system which generated this result tra nsmitted reference range : <=0.8. The reference r abdifatah was not used to int erpret this result as normal/abnormal . [place] [address]-05-23 06:35:00 Test Item Value Reference Range Interpretation Comments Eosinophils # (test code 0.6 See_Comment [A utomated message] The = Eosinophils #) system whic h generated this result tra nsmitted reference range : <=0.5. The reference r abdifatah was not used to int erpret this result as normal/abnormal . [place] 052861-05-23 06:35:00 Test Item Value Reference Range Interpretation Comments Basophils # (test code 0.1 See_Comment [Aut omated message] The = Basophils #) system which generated this result tra nsmitted reference range : <=0.2. The reference r abdifatah was not used to int erpret this result as normal/abnormal . [facility]: [id number] 19:52:00 Test Item Value Reference Range Interpretation Comments Culture: Urine (test >100,000 CFU/mL Yeast code = Culture: Urine) [facility]: [id number] 19:52:00 Test Item Value Reference Range Interpretation Comments Culture: Urine (test >100,000 CFU/mL Yeast code = Culture: Urine) [facility]2021-05-22 10:20:00 Test Item Value Reference Range Interpretation Comments Procalcitonin Lvl (test 1.59 See_Comment [Au tomated message] code = Procalcitonin Lvl) Th e system which generated this result transmitted ref erence range: <=0.10. The reference range was not used to interpr et this result as normal/abnormal . [facility] [id number] 10:20:00 Test Item Value Reference Range Interpretation Comments Procalcitonin Lvl (test 1.59 See_Comment [Au tomated message] code = Procalcitonin Lvl) Th e system which generated this result transmitted ref erence range: <=0.10. The reference range was not used to interpr et this result as normal/abnormal . [facility] [id number] 08:43:00 Test Item Value Reference Range Interpretation Comments Magnesium Lvl (test code = Magnesium 1.9 1.8-2.4 Lvl) [facility] [id number] 08:43:00 Test Item Value Reference Range Interpretation Comments Phosphorus (test code = Phosphorus) 3.6 2.5-4.5 [facility] [id number] 08:43:00 Test Item Value Reference Range Interpretation Comments Glucose Lvl (test code = Glucose Lvl) 140 70-99 [place] 878481-05-22 08:43:00 Test Item Value Reference Range Interpretation Comments BUN (test code = BUN) 23 7-22 [facility] [id number] 08:43:00 Test Item Value Reference Range Interpretation Comments Creatinine Lvl (test code = Creatinine 1.23 0.50-1.40 Lvl) [place] 878481-05-22 08:43:00 Test Item Value Reference Range Interpretation Comments Sodium Lvl (test code = Sodium Lvl) 139 135-145 [place] 878481-05-22 08:43:00 Test Item Value Reference Range Interpretation Comments Potassium Lvl (test code = Potassium 4.2 3.5-5.1 Lvl) [place] 878481-05-22 08:43:00 Test Item Value Reference Range Interpretation Comments Chloride Lvl (test code = Chloride Lvl) 105 95-109 [place] 878481-05-22 08:43:00 Test Item Value Reference Range Interpretation Comments CO2 (test code = CO2) 27 24-32 [place] [address]-05-22 08:43:00 Test Item Value Reference Range Interpretation Comments AGAP (test code = AGAP) 11.2 10.0-20.0 [place] [address]-05-22 08:43:00 Test Item Value Reference Range Interpretation Comments Calcium Lvl (test code = Calcium Lvl) 9.2 8.5-10.5 [place] 878481-05-22 08:43:00 Test Item Value Reference Range Interpretation Comments eGFR (test code = eGFR) 50 [place] [address]-05-22 08:43:00 Test Item Value Reference Range Interpretation Comments Segs (test code = Segs) 92.7 45.0-75.0 [place] [address]-05-22 08:43:00 Test Item Value Reference Range Interpretation Comments Lymphocytes (test code = Lymphocytes) 2.2 20.0-40.0 [place] [address]-05-22 08:43:00 Test Item Value Reference Range Interpretation Comments Monocytes (test code = Monocytes) 4.3 2.0-12.0 [place] [address]-05-22 08:43:00 Test Item Value Reference Range Interpretation Comments Eosinophils (test code = 0.6 See_Comment [A utomated message] The Eosinophils) system which ge nerated this result tra nsmitted reference range : <=4.0. The reference r abdifatah was not used to int erpret this result as normal/abnormal . [facility] CypressQcsnqwuGVMRMQXSUG9645-76-92 08:43:00 Test Item Value Reference Range Interpretation Comments Basophils (test code = 0.2 See_Comment [Aut omated message] The Basophils) system which ge nerated this result tra nsmitted reference range : <=1.0. The reference r abdifatah was not used to int erpret this result as normal/abnormal . [facility] CypressIlblaigAHKOFVNBVK2558-80-33 08:43:00 Test Item Value Reference Range Interpretation Comments Neutrophils # (test code = Neutrophils 17.1 1.5-8.1 #) [facility] CypressXttfitzOPPPHAQPVN5300-01-79 08:43:00 Test Item Value Reference Range Interpretation Comments Lymphocytes # (test code = Lymphocytes 0.4 1.0-5.5 #) [facility] CypressLpycieuZALVKANJVF9081-36-75 08:43:00 Test Item Value Reference Range Interpretation Comments Monocytes # (test code 0.8 See_Comment [Aut omated message] The = Monocytes #) system which generated this result tra nsmitted reference range : <=0.8. The reference r abdifatah was not used to int erpret this result as normal/abnormal . [facility] CypressYdrpxkqBJBSHOHYPB0873-80-26 08:43:00 Test Item Value Reference Range Interpretation Comments Eosinophils # (test code 0.1 See_Comment [A utomated message] The = Eosinophils #) system whic h generated this result tra nsmitted reference range : <=0.5. The reference r abdifatah was not used to int erpret this result as normal/abnormal . [facility] CypressTamwtyjEJLGZRGLPE1113-14-02 08:43:00 Test Item Value Reference Range Interpretation Comments WBC (test code = WBC) 18.5 3.7-10.4 [facility] CypressUpauipqMIMYYPLTMT0309-24-75 08:43:00 Test Item Value Reference Range Interpretation Comments RBC (test code = RBC) 3.24 4.20-5.40 [facility] CypressGbegeodULFZLDBNIB5397-49-31 08:43:00 Test Item Value Reference Range Interpretation Comments Hgb (test code = Hgb) 10.0 12.0-16.0 [facility] CypressCfpetplLWBPCUNFGF0129-83-15 08:43:00 Test Item Value Reference Range Interpretation Comments Hct (test code = Hct) 29.9 36.0-48.0 [place] [address]-05-22 08:43:00 Test Item Value Reference Range Interpretation Comments MCV (test code = MCV) 92.5 80.0-98.0 [place] [address]-05-22 08:43:00 Test Item Value Reference Range Interpretation Comments MCH (test code = MCH) 30.9 pg 27.0-31.0 [place] [address]-05-22 08:43:00 Test Item Value Reference Range Interpretation Comments MCHC (test code = MCHC) 33.4 32.0-36.0 [place] [address]-05-22 08:43:00 Test Item Value Reference Range Interpretation Comments RDW (test code = RDW) 13.8 11.5-14.[address]05-22 08:43:00 Test Item Value Reference Range Interpretation Comments Platelet (test code = Platelet) 299 133-450 [place] [address]-05-22 08:43:00 Test Item Value Reference Range Interpretation Comments MPV (test code = MPV) 7.6 7.4-10.4 [place] 878481-05-22 08:43:00 Test Item Value Reference Range Interpretation Comments Magnesium Lvl (test code = Magnesium 1.9 1.8-2.4 Lvl) [place] 878481-05-22 08:43:00 Test Item Value Reference Range Interpretation Comments Phosphorus (test code = Phosphorus) 3.6 2.5-4.5 [place] 878481-05-22 08:43:00 Test Item Value Reference Range Interpretation Comments Glucose Lvl (test code = Glucose Lvl) 140 70-99 [place] 878481-05-22 08:43:00 Test Item Value Reference Range Interpretation Comments BUN (test code = BUN) 23 7-22 [place] 878481-05-22 08:43:00 Test Item Value Reference Range Interpretation Comments Creatinine Lvl (test code = Creatinine 1.23 0.50-1.40 Lvl) [place] 878481-05-22 08:43:00 Test Item Value Reference Range Interpretation Comments Sodium Lvl (test code = Sodium Lvl) 139 135-145 [place] 878481-05-22 08:43:00 Test Item Value Reference Range Interpretation Comments Potassium Lvl (test code = Potassium 4.2 3.5-5.1 Lvl) [place] 878481-05-22 08:43:00 Test Item Value Reference Range Interpretation Comments Chloride Lvl (test code = Chloride Lvl) 105 95-109 [place] [address]-05-22 08:43:00 Test Item Value Reference Range Interpretation Comments CO2 (test code = CO2) 27 24-32 [place] 878481-05-22 08:43:00 Test Item Value Reference Range Interpretation Comments AGAP (test code = AGAP) 11.2 10.0-20.[address]05-22 08:43:00 Test Item Value Reference Range Interpretation Comments Calcium Lvl (test code = Calcium Lvl) 9.2 8.5-10.5 [place] [address]-05-22 08:43:00 Test Item Value Reference Range Interpretation Comments eGFR (test code = eGFR) 50 [place] 052861-05-22 08:43:00 Test Item Value Reference Range Interpretation Comments Segs (test code = Segs) 92.7 45.0-75.[address]05-22 08:43:00 Test Item Value Reference Range Interpretation Comments Lymphocytes (test code = Lymphocytes) 2.2 20.0-40.0 [place] 052861-05-22 08:43:00 Test Item Value Reference Range Interpretation Comments Monocytes (test code = Monocytes) 4.3 2.0-12.0 [place] [address]-05-22 08:43:00 Test Item Value Reference Range Interpretation Comments Eosinophils (test code = 0.6 See_Comment [A utomated message] The Eosinophils) system which ge nerated this result tra nsmitted reference range : <=4.0. The reference r abdifatah was not used to int erpret this result as normal/abnormal . [place] [address]-05-22 08:43:00 Test Item Value Reference Range Interpretation Comments Basophils (test code = 0.2 See_Comment [Aut omated message] The Basophils) system which ge nerated this result tra nsmitted reference range : <=1.0. The reference r abdifatah was not used to int erpret this result as normal/abnormal . [address]05-22 08:43:00 Test Item Value Reference Range Interpretation Comments Neutrophils # (test code = Neutrophils 17.1 1.5-8.1 #) [place] 052861-05-22 08:43:00 Test Item Value Reference Range Interpretation Comments Lymphocytes # (test code = Lymphocytes 0.4 1.0-5.5 #) [place] 052861-05-22 08:43:00 Test Item Value Reference Range Interpretation Comments Monocytes # (test code 0.8 See_Comment [Aut omated message] The = Monocytes #) system which generated this result tra nsmitted reference range : <=0.8. The reference r abdifatah was not used to int erpret this result as normal/abnormal . [place] [address]-05-22 08:43:00 Test Item Value Reference Range Interpretation Comments Eosinophils # (test code 0.1 See_Comment [A utomated message] The = Eosinophils #) system whic h generated this result tra nsmitted reference range : <=0.5. The reference r abdifatah was not used to int erpret this result as normal/abnormal . [id number] 08:43:00 Test Item Value Reference Range Interpretation Comments WBC (test code = WBC) 18.5 3.7-10.4 [place] 052861-05-22 08:43:00 Test Item Value Reference Range Interpretation Comments RBC (test code = RBC) 3.24 4.20-5.40 [place] 052861-05-22 08:43:00 Test Item Value Reference Range Interpretation Comments Hgb (test code = Hgb) 10.0 12.0-16.0 [place] 052861-05-22 08:43:00 Test Item Value Reference Range Interpretation Comments Hct (test code = Hct) 29.9 36.0-48.0 [place] [address]-05-22 08:43:00 Test Item Value Reference Range Interpretation Comments MCV (test code = MCV) 92.5 80.0-98.0 [place] [address]-05-22 08:43:00 Test Item Value Reference Range Interpretation Comments MCH (test code = MCH) 30.9 pg 27.0-31.0 [place] [address]-05-22 08:43:00 Test Item Value Reference Range Interpretation Comments MCHC (test code = MCHC) 33.4 32.0-36.0 [place] 052861-05-22 08:43:00 Test Item Value Reference Range Interpretation Comments RDW (test code = RDW) 13.8 11.5-14.5 [place] 052861-05-22 08:43:00 Test Item Value Reference Range Interpretation Comments Platelet (test code = Platelet) 299 133-450 [place] 052861-05-22 08:43:00 Test Item Value Reference Range Interpretation Comments MPV (test code = MPV) 7.6 7.4-10.4 [place] 052861-05-22 03:21:00 Test Item Value Reference Range Interpretation Comments Sed Rate (test code = 49 See_Comment [Auto mated message] The Sed Rate) system which ge nerated this result transmit gill reference range : <=20. The reference range was not used to interpr et this result as len l/abnormal. [place] 694271-05-22 03:21:00 Test Item Value Reference Range Interpretation Comments C-REACTIVE PROTEIN (test code = 16.1 C-REACTIVE PROTEIN) [place] 052861-05-22 03:21:00 Test Item Value Reference Range Interpretation Comments Sed Rate (test code = 49 See_Comment [Auto mated message] The Sed Rate) system which ge nerated this result transmit gill reference range : <=20. The reference range was not used to interpr et this result as len l/abnormal. [place] 694271-05-22 03:21:00 Test Item Value Reference Range Interpretation Comments C-REACTIVE PROTEIN (test code = 16.1 C-REACTIVE PROTEIN) [facility]2021-05-22 03:18:20 Test Item Value Reference Range Interpretation Comments Lactic Acid Lvl (test code = Lactic 1.5 0.5-2.2 Acid Lvl) [place] 878481-05-22 03:18:20 Test Item Value Reference Range Interpretation Comments Lactic Acid Lvl (test code = Lactic 1.5 0.5-2.2 Acid Lvl) [place] 694271-05-22 02:46:00 Test Item Value Reference Range Interpretation Comments Coronavirus (COVID-19) Not Detected (09/15/20 KASSY (test code = 9:46 PM) Coronavirus (COVID-19) KASSY) [facility] 02:46:00 Test Item Value Reference Range Interpretation Comments Coronavirus (COVID-19) Not Detected (09/15/20 KASSY (test code = 9:46 PM) Coronavirus (COVID-19) KASSY) [facility] [id number] 23:20:00 Test Item Value Reference Range Interpretation Comments ABO/Rh (test code = ABO/Rh) A POS [facility] [id number] 23:20:00 Test Item Value Reference Range Interpretation Comments Antibody Scrn (test Negative (09/15/20 6:20 code = Antibody Scrn) PM) [facility] [id number] 23:20:00 Test Item Value Reference Range Interpretation Comments ABO/Rh (test code = ABO/Rh) A POS [facility] [id number] 23:20:00 Test Item Value Reference Range Interpretation Comments Antibody Scrn (test Negative (09/15/20 6:20 code = Antibody Scrn) PM) [facility] [id number] 22:51:00 Test Item Value Reference Range Interpretation Comments UA Color (test code = Yellow *NA*(09/15/20 UA Color) 5:51 PM) [facility] [id number] 22:51:00 Test Item Value Reference Range Interpretation Comments UA Turbidity (test code = Clear (09/15/20 5:51 UA Turbidity) PM) [facility] [id number] 22:51:00 Test Item Value Reference Range Interpretation Comments UA Spec Grav (test code = UA Spec 1.014 1 Grav) [facility] [id number] 22:51:00 Test Item Value Reference Range Interpretation Comments UA pH (test code = UA pH) 7.0 1 5.0-8.0 [facility] [id number] 22:51:00 Test Item Value Reference Range Interpretation Comments UA Protein (test code = UA Negative mg/dL Protein) [facility] [id number] 22:51:00 Test Item Value Reference Range Interpretation Comments UA Glucose (test code = UA Negative mg/dL Glucose) [facility] AND [id number] 22:51:00 Test Item Value Reference Range Interpretation Comments UA Ketones (test code = UA Trace mg/dL Ketones) [facility] AND [id number] 22:51:00 Test Item Value Reference Range Interpretation Comments UA Bili (test code = Negative *NA*(09/15/20 UA Bili) 5:51 PM) [facility] AND [id number] 22:51:00 Test Item Value Reference Range Interpretation Comments UA Blood (test code = Negative (09/15/20 5:51 UA Blood) PM) [facility] AND [id number] 22:51:00 Test Item Value Reference Range Interpretation Comments UA Urobilinogen (test code = UA no gt 0.1-1.0 Urobilinogen) [facility] AND [id number] 22:51:00 Test Item Value Reference Range Interpretation Comments UA Nitrite (test code Negative (09/15/20 5:51 = UA Nitrite) PM) [facility] AND [id number] 22:51:00 Test Item Value Reference Range Interpretation Comments UA Leuk Est (test Negative (09/15/20 5:51 code = UA Leuk Est) PM) [facility] AND [id number] 22:51:00 Test Item Value Reference Range Interpretation Comments UA Sq Epi (test code = UA Sq Occasional /LPF Epi) [facility] AND [id number] 22:51:00 Test Item Value Reference Range Interpretation Comments UA WBC (test code = 8 See_Comment [Automa gill message] The UA WBC) system which ge nerated this result transmit gill reference range : <=5. The reference range was not used to interpr et this result as len l/abnormal. [facility] AND [id number] 22:51:00 Test Item Value Reference Range Interpretation Comments UA RBC (test code = 3 See_Comment [Automa gill message] The UA RBC) system which ge nerated this result transmit gill reference range : <=2. The reference range was not used to interpr et this result as len l/abnormal. [facility] AND [id number] 22:51:00 Test Item Value Reference Range Interpretation Comments UA Bacteria (test code = UA Occasional /HPF Bacteria) [facility] AND [id number] 22:51:00 Test Item Value Reference Range Interpretation Comments UA Mucus (test code = UA Mucus) Few /LPF [facility] AND [id number] 22:51:00 Test Item Value Reference Range Interpretation Comments UA Color (test code = Yellow *NA*(09/15/20 UA Color) 5:51 PM) [facility] AND [id number] 22:51:00 Test Item Value Reference Range Interpretation Comments UA Turbidity (test code = Clear (09/15/20 5:51 UA Turbidity) PM) [facility] AND [id number] 22:51:00 Test Item Value Reference Range Interpretation Comments UA Spec Grav (test code = UA Spec 1.014 1 Grav) [facility] AND [id number] 22:51:00 Test Item Value Reference Range Interpretation Comments UA pH (test code = UA pH) 7.0 1 5.0-8.0 [facility] AND [id number] 22:51:00 Test Item Value Reference Range Interpretation Comments UA Protein (test code = UA Negative mg/dL Protein) [facility] AND [id number] 22:51:00 Test Item Value Reference Range Interpretation Comments UA Glucose (test code = UA Negative mg/dL Glucose) [facility] AND [id number] 22:51:00 Test Item Value Reference Range Interpretation Comments UA Ketones (test code = UA Trace mg/dL Ketones) [facility] AND [id number] 22:51:00 Test Item Value Reference Range Interpretation Comments UA Bili (test code = Negative *NA*(09/15/20 UA Bili) 5:51 PM) [facility] AND [id number] 22:51:00 Test Item Value Reference Range Interpretation Comments UA Blood (test code = Negative (09/15/20 5:51 UA Blood) PM) [facility] AND [id number] 22:51:00 Test Item Value Reference Range Interpretation Comments UA Urobilinogen (test code = UA no gt 0.1-1.0 Urobilinogen) [facility] AND [id number] 22:51:00 Test Item Value Reference Range Interpretation Comments UA Nitrite (test code Negative (09/15/20 5:51 = UA Nitrite) PM) [facility] AND [id number] 22:51:00 Test Item Value Reference Range Interpretation Comments UA Leuk Est (test Negative (09/15/20 5:51 code = UA Leuk Est) PM) [facility] [id number] 22:51:00 Test Item Value Reference Range Interpretation Comments UA Sq Epi (test code = UA Sq Occasional /LPF Epi) [facility] AND [id number] 22:51:00 Test Item Value Reference Range Interpretation Comments UA WBC (test code = 8 See_Comment [Automa gill message] The UA WBC) system which ge nerated this result transmit gill reference range : <=5. The reference range was not used to interpr et this result as len l/abnormal. [facility] [id number] 22:51:00 Test Item Value Reference Range Interpretation Comments UA RBC (test code = 3 See_Comment [Automa gill message] The UA RBC) system which ge nerated this result transmit gill reference range : <=2. The reference range was not used to interpr et this result as len l/abnormal. [facility] AND [id number] 22:51:00 Test Item Value Reference Range Interpretation Comments UA Bacteria (test code = UA Occasional /HPF Bacteria) [facility] [id number] 22:51:00 Test Item Value Reference Range Interpretation Comments UA Mucus (test code = UA Mucus) Few /LPF [facility]ann[facility]AC [id number] 21:33:00 Test Item Value Reference Range Interpretation Comments Total CK (test code = Total CK) 23 12-191 [facility]ann[facility] [id number] 21:33:00 Test Item Value Reference Range Interpretation Comments Troponin-I (test code no gt See_Comment [Auto mated message] The = Troponin-I) system which g enerated this result transmit gill reference range : <=0.40. The reference r abdifatah was not used to interpr et this result as len l/abnormal. [facility] [id number] 21:33:00 Test Item Value Reference Range Interpretation Comments Procalcitonin Lvl (test 0.05 See_Comment [Au tomated message] code = Procalcitonin Lvl) Th e system which generated this result transmitted ref erence range: <=0.10. The reference range was not used to interpr et this result as normal/abnormal . [facility] [id number] 21:33:00 Test Item Value Reference Range Interpretation Comments Total Protein (test code = Total 7.5 6.4-8.4 Protein) [place] 878481-05-21 21:33:00 Test Item Value Reference Range Interpretation Comments Albumin Lvl (test code = Albumin Lvl) 2.9 3.5-5.0 [place] 878481-05-21 21:33:00 Test Item Value Reference Range Interpretation Comments ALANINE AMINOTRANSFERASE 18 See_Comment [A utomated message] (test code = ALANINE The sys tem which AMINOTRANSFERASE) generated this result transmitted ref erence range: <=65. Th e reference range was not used to int erpret this result as normal/abnormal . [facility] [id number] 21:33:00 Test Item Value Reference Range Interpretation Comments ASPARTATE TRANSAMINASE 17 See_Comment [Aut omated message] (test code = ASPARTATE The s ystem which TRANSAMINASE) generated this result transmitted ref erence range: <=37. Th e reference range was not used to interpr et this result as normal/abnormal . [facility] [id number] 21:33:00 Test Item Value Reference Range Interpretation Comments Alk Phos (test code = Alk Phos) 47 39-136 [facility] [id number] 21:33:00 Test Item Value Reference Range Interpretation Comments Bili Total (test code = Bili Total) 0.2 0.2-1.3 [facility] [id number] 21:33:00 Test Item Value Reference Range Interpretation Comments B/C Ratio (test code = B/C Ratio) 19 1 6-25 [place] 878481-05-21 21:33:00 Test Item Value Reference Range Interpretation Comments Globulin (test code = Globulin) 4.6 2.7-4.2 [facility] [id number] 21:33:00 Test Item Value Reference Range Interpretation Comments A/G Ratio (test code = A/G Ratio) 0.6 1 0.7-1.6 [facility] [id number] 21:33:00 Test Item Value Reference Range Interpretation Comments Lactic Acid Lvl (test code = Lactic 0.9 0.5-2.2 Acid Lvl) [id number] 21:33:00 Test Item Value Reference Range Interpretation Comments S Preg (test code = S Negative *NA*(09/15/20 Preg) 4:33 PM) [facility] [id number] 21:33:00 Test Item Value Reference Range Interpretation Comments PT (test code = PT) 13.0 s 12.0-14.7 [facility] [id number] 21:33:00 Test Item Value Reference Range Interpretation Comments INR (test code = INR) 0.99 1 0.85-1.17 [facility] [id number] 21:33:00 Test Item Value Reference Range Interpretation Comments PTT (test code = PTT) 30.0 s 22.9-35.8 [facility] [id number] 21:33:00 Test Item Value Reference Range Interpretation Comments Basophils # (test code 0.1 See_Comment [Aut omated message] The = Basophils #) system which generated this result tra nsmitted reference range : <=0.2. The reference r abdifatah was not used to int erpret this result as normal/abnormal . [facility] [id number] 21:33:00 Test Item Value Reference Range Interpretation Comments Vanco Lvl (test code = Vanco Lvl) 1.6 [facility] CenterCARDI [id number] 21:33:00 Test Item Value Reference Range Interpretation Comments Total CK (test code = Total CK) 23 12-191 [facility] [id number] 21:33:00 Test Item Value Reference Range Interpretation Comments Troponin-I (test code no gt See_Comment [Auto mated message] The = Troponin-I) system which g enerated this result transmit gill reference range : <=0.40. The reference r abdifatah was not used to interpr et this result as len l/abnormal. [facility] [id number] 21:33:00 Test Item Value Reference Range Interpretation Comments Procalcitonin Lvl (test 0.05 See_Comment [Au tomated message] code = Procalcitonin Lvl) Th e system which generated this result transmitted ref erence range: <=0.10. The reference range was not used to interpr et this result as normal/abnormal . [facility] [id number] 21:33:00 Test Item Value Reference Range Interpretation Comments Total Protein (test code = Total 7.5 6.4-8.4 Protein) [place] 878481-05-21 21:33:00 Test Item Value Reference Range Interpretation Comments Albumin Lvl (test code = Albumin Lvl) 2.9 3.5-5.0 [place] 878481-05-21 21:33:00 Test Item Value Reference Range Interpretation Comments ALANINE AMINOTRANSFERASE 18 See_Comment [A utomated message] (test code = ALANINE The sys tem which AMINOTRANSFERASE) generated this result transmitted ref erence range: <=65. Th e reference range was not used to int erpret this result as normal/abnormal . [facility] [id number] 21:33:00 Test Item Value Reference Range Interpretation Comments ASPARTATE TRANSAMINASE 17 See_Comment [Aut omated message] (test code = ASPARTATE The s ystem which TRANSAMINASE) generated this result transmitted ref erence range: <=37. Th e reference range was not used to interpr et this result as normal/abnormal . [facility] [id number] 21:33:00 Test Item Value Reference Range Interpretation Comments Alk Phos (test code = Alk Phos) 47 39-136 [facility] [id number] 21:33:00 Test Item Value Reference Range Interpretation Comments Bili Total (test code = Bili Total) 0.2 0.2-1.3 [facility] [id number] 21:33:00 Test Item Value Reference Range Interpretation Comments B/C Ratio (test code = B/C Ratio) 19 1 6-25 [facility] [id number] 21:33:00 Test Item Value Reference Range Interpretation Comments Globulin (test code = Globulin) 4.6 2.7-4.2 [facility] [id number] 21:33:00 Test Item Value Reference Range Interpretation Comments A/G Ratio (test code = A/G Ratio) 0.6 1 0.7-1.6 [facility] CenterCHE[facility] [id number] 21:33:00 Test Item Value Reference Range Interpretation Comments Lactic Acid Lvl (test code = Lactic 0.9 0.5-2.2 Acid Lvl) [facility] Ho[id number] 21:33:00 Test Item Value Reference Range Interpretation Comments S Preg (test code = S Negative *NA*(09/15/20 Preg) 4:33 PM) [facility] CenterRcxqytkBBXLOHGVKK7586-45-78 21:33:00 Test Item Value Reference Range Interpretation Comments PT (test code = PT) 13.0 s 12.0-14.7 [facility] C[id number] 21:33:00 Test Item Value Reference Range Interpretation Comments INR (test code = INR) 0.99 1 0.85-1.17 [facility] Cent[id number] 21:33:00 Test Item Value Reference Range Interpretation Comments PTT (test code = PTT) 30.0 s 22.9-35.8 [facility] CenterR[id number] 21:33:00 Test Item Value Reference Range Interpretation Comments Basophils # (test code 0.1 See_Comment [Aut omated message] The = Basophils #) system which generated this result tra nsmitted reference range : <=0.2. The reference r abdifatah was not used to int erpret this result as normal/abnormal . [facility] CenterLbhymydRWQKPBCJGZ5657-88-72 21:33:00 Test Item Value Reference Range Interpretation Comments Vanco Lvl (test code = Vanco Lvl) 1.6 [facility] [id number] 11:23:00 Test Item Value Reference Range Interpretation Comments ABO/Rh (test code = ABO/Rh) A POS [place] [id number] 11:23:00 Test Item Value Reference Range Interpretation Comments Antibody Scrn (test Negative (08/28/20 6:23 code = Antibody Scrn) AM) [facility] [id number] 11:23:00 Test Item Value Reference Range Interpretation Comments ABO/Rh (test code = ABO/Rh) A POS [facility] [id number] 11:23:00 Test Item Value Reference Range Interpretation Comments Antibody Scrn (test Negative (08/28/20 6:23 code = Antibody Scrn) AM) [place] [id number] 15:14:00 Test Item Value Reference Range Interpretation Comments Vanco Tr (test code = Vanco Tr) 18.0 [place] [id number] 15:14:00 Test Item Value Reference Range Interpretation Comments Vanco Tr TND (test code = Vanco Tr 09:30am TND) [place] [id number] 15:14:00 Test Item Value Reference Range Interpretation Comments Vanco Tr (test code = Vanco Tr) 18.0 [place] [id number] 15:14:00 Test Item Value Reference Range Interpretation Comments Vanco Tr TND (test code = Vanco Tr 09:30am TND) [facility] [id number] 11:42:00 Test Item Value Reference Range Interpretation Comments Glucose Lvl (test code = Glucose Lvl) 95 70-99 [facility] [id number] 11:42:00 Test Item Value Reference Range Interpretation Comments BUN (test code = BUN) 8 - [facility] [id number] 11:42:00 Test Item Value Reference Range Interpretation Comments Creatinine Lvl (test code = Creatinine 0.53 0.50-1.40 Lvl) [facility] [id number] 11:42:00 Test Item Value Reference Range Interpretation Comments Sodium Lvl (test code = Sodium Lvl) 146 135-145 [facility] [id number] 11:42:00 Test Item Value Reference Range Interpretation Comments Potassium Lvl (test code = Potassium 3.8 3.5-5.1 Lvl) [facility] [id number] 11:42:00 Test Item Value Reference Range Interpretation Comments Chloride Lvl (test code = Chloride Lvl) 112 95-109 [facility] [id number] 11:42:00 Test Item Value Reference Range Interpretation Comments CO2 (test code = CO2) 27 24-32 [facility] [id number] 11:42:00 Test Item Value Reference Range Interpretation Comments Calcium Lvl (test code = Calcium Lvl) 9.0 8.5-10.5 [place] [id number] 11:42:00 Test Item Value Reference Range Interpretation Comments AGAP (test code = AGAP) 10.8 10.0-20.0 [place] 878481-05-02 11:42:00 Test Item Value Reference Range Interpretation Comments eGFR (test code = eGFR) 107 [place] 878481-05-02 11:42:00 Test Item Value Reference Range Interpretation Comments Magnesium Lvl (test code = Magnesium 2.2 1.8-2.4 Lvl) [place] 878481-05-02 11:42:00 Test Item Value Reference Range Interpretation Comments Phosphorus (test code = Phosphorus) 3.1 2.5-4.5 [place] 052861-05-02 11:42:00 Test Item Value Reference Range Interpretation Comments WBC (test code = WBC) 8.2 3.7-10.4 [place] 052861-05-02 11:42:00 Test Item Value Reference Range Interpretation Comments RBC (test code = RBC) 3.01 4.20-5.40 [place] [address]-05-02 11:42:00 Test Item Value Reference Range Interpretation Comments Hgb (test code = Hgb) 10.2 12.0-16.0 [place] [address]-05-02 11:42:00 Test Item Value Reference Range Interpretation Comments Hct (test code = Hct) 29.0 36.0-48.0 [place] [address]-05-02 11:42:00 Test Item Value Reference Range Interpretation Comments MCV (test code = MCV) 96.1 80.0-98.0 [place] [address]-05-02 11:42:00 Test Item Value Reference Range Interpretation Comments MCH (test code = MCH) 33.9 pg 27.0-31.0 [place] 052861-05-02 11:42:00 Test Item Value Reference Range Interpretation Comments MCHC (test code = MCHC) 35.3 32.0-36.0 [place] [address]-05-02 11:42:00 Test Item Value Reference Range Interpretation Comments RDW (test code = RDW) 13.6 11.5-14.5 [place] 052861-05-02 11:42:00 Test Item Value Reference Range Interpretation Comments Platelet (test code = Platelet) 300 133-450 [place] 052861-05-02 11:42:00 Test Item Value Reference Range Interpretation Comments MPV (test code = MPV) 7.3 7.4-10.4 [place] 052861-05-02 11:42:00 Test Item Value Reference Range Interpretation Comments Segs (test code = Segs) 58.7 45.0-75.0 [place] [address]-05-02 11:42:00 Test Item Value Reference Range Interpretation Comments Lymphocytes (test code = Lymphocytes) 27.4 20.0-40.0 [place] [address]-05-02 11:42:00 Test Item Value Reference Range Interpretation Comments Monocytes (test code = Monocytes) 8.9 2.0-12.0 [place] [address]-05-02 11:42:00 Test Item Value Reference Range Interpretation Comments Eosinophils (test code = 4.3 See_Comment [A utomated message] The Eosinophils) system which ge nerated this result tra nsmitted reference range : <=4.0. The reference r abdifatah was not used to int erpret this result as normal/abnormal . [place] 052861-05-02 11:42:00 Test Item Value Reference Range Interpretation Comments Basophils (test code = 0.7 See_Comment [Aut omated message] The Basophils) system which ge nerated this result tra nsmitted reference range : <=1.0. The reference r abdifatah was not used to int erpret this result as normal/abnormal . [place] 052861-05-02 11:42:00 Test Item Value Reference Range Interpretation Comments Neutrophils # (test code = Neutrophils 4.8 1.5-8.1 #) [place] [address]-05-02 11:42:00 Test Item Value Reference Range Interpretation Comments Lymphocytes # (test code = Lymphocytes 2.3 1.0-5.5 #) [place] [address]-05-02 11:42:00 Test Item Value Reference Range Interpretation Comments Monocytes # (test code 0.7 See_Comment [Aut omated message] The = Monocytes #) system which generated this result tra nsmitted reference range : <=0.8. The reference r abdifatah was not used to int erpret this result as normal/abnormal . [place] 052861-05-02 11:42:00 Test Item Value Reference Range Interpretation Comments Eosinophils # (test code 0.4 See_Comment [A utomated message] The = Eosinophils #) system whic h generated this result tra nsmitted reference range : <=0.5. The reference r abdifatah was not used to int erpret this result as normal/abnormal . [place] 052861-05-02 11:42:00 Test Item Value Reference Range Interpretation Comments Basophils # (test code 0.1 See_Comment [Aut omated message] The = Basophils #) system which generated this result tra nsmitted reference range : <=0.2. The reference r abdifatah was not used to int erpret this result as normal/abnormal . [place] 099461-05-02 11:42:00 Test Item Value Reference Range Interpretation Comments Ca Ion WB (test code = Ca Ion WB) 1.18 1.05-1.25 [place] 099461-05-02 11:42:00 Test Item Value Reference Range Interpretation Comments Ca Norm WB (test code = Ca Norm WB) 1.22 1.05-1.25 [place] 878481-05-02 11:42:00 Test Item Value Reference Range Interpretation Comments Glucose Lvl (test code = Glucose Lvl) 95 70-99 [place] 878481-05-02 11:42:00 Test Item Value Reference Range Interpretation Comments BUN (test code = BUN) 8 7-22 [place] 878481-05-02 11:42:00 Test Item Value Reference Range Interpretation Comments Creatinine Lvl (test code = Creatinine 0.53 0.50-1.40 Lvl) [place] 878481-05-02 11:42:00 Test Item Value Reference Range Interpretation Comments Sodium Lvl (test code = Sodium Lvl) 146 135-145 [place] 878481-05-02 11:42:00 Test Item Value Reference Range Interpretation Comments Potassium Lvl (test code = Potassium 3.8 3.5-5.1 Lvl) [place] 878481-05-02 11:42:00 Test Item Value Reference Range Interpretation Comments Chloride Lvl (test code = Chloride Lvl) 112 95-109 [place] 878481-05-02 11:42:00 Test Item Value Reference Range Interpretation Comments CO2 (test code = CO2) 27 24-32 [place] [address]-05-02 11:42:00 Test Item Value Reference Range Interpretation Comments Calcium Lvl (test code = Calcium Lvl) 9.0 8.5-10.5 [place] 878481-05-02 11:42:00 Test Item Value Reference Range Interpretation Comments AGAP (test code = AGAP) 10.8 10.0-20.0 [place] [address]-05-02 11:42:00 Test Item Value Reference Range Interpretation Comments eGFR (test code = eGFR) 107 [place] 878481-05-02 11:42:00 Test Item Value Reference Range Interpretation Comments Magnesium Lvl (test code = Magnesium 2.2 1.8-2.4 Lvl) [place] 878481-05-02 11:42:00 Test Item Value Reference Range Interpretation Comments Phosphorus (test code = Phosphorus) 3.1 2.5-4.5 [place] [address]-05-02 11:42:00 Test Item Value Reference Range Interpretation Comments WBC (test code = WBC) 8.2 3.7-10.4 [place] [address]-05-02 11:42:00 Test Item Value Reference Range Interpretation Comments RBC (test code = RBC) 3.01 4.20-5.40 [place] [address]-05-02 11:42:00 Test Item Value Reference Range Interpretation Comments Hgb (test code = Hgb) 10.2 12.0-16.0 [place] [address]-05-02 11:42:00 Test Item Value Reference Range Interpretation Comments Hct (test code = Hct) 29.0 36.0-48.0 [place] [address]-05-02 11:42:00 Test Item Value Reference Range Interpretation Comments MCV (test code = MCV) 96.1 80.0-98.0 [place] [address]-05-02 11:42:00 Test Item Value Reference Range Interpretation Comments MCH (test code = MCH) 33.9 pg 27.0-31.0 [facility]qfnbFIK[facility]DAQMWK6319-58-33 11:42:00 Test Item Value Reference Range Interpretation Comments MCHC (test code = MCHC) 35.3 32.0-36.0 [facility]ressValqrzyQDPZRXBYEH3148-28-50 11:42:00 Test Item Value Reference Range Interpretation Comments RDW (test code = RDW) 13.6 11.5-14.5 [facility] CypressMbskzfnPUZXDUGATL9208-72-99 11:42:00 Test Item Value Reference Range Interpretation Comments Platelet (test code = Platelet) 300 133-450 [facility] CypressNjtzuvoKJLHRESLQU4532-03-61 11:42:00 Test Item Value Reference Range Interpretation Comments MPV (test code = MPV) 7.3 7.4-10.4 [place] 052861-05-02 11:42:00 Test Item Value Reference Range Interpretation Comments Segs (test code = Segs) 58.7 45.0-75.0 [place] 052861-05-02 11:42:00 Test Item Value Reference Range Interpretation Comments Lymphocytes (test code = Lymphocytes) 27.4 20.0-40.0 [facility] CypressIjermuwXSPUTFSEXS5847-24-58 11:42:00 Test Item Value Reference Range Interpretation Comments Monocytes (test code = Monocytes) 8.9 2.0-12.0 [facility] CypressQdbcerwQGMCHKVNDS0348-66-98 11:42:00 Test Item Value Reference Range Interpretation Comments Eosinophils (test code = 4.3 See_Comment [A utomated message] The Eosinophils) system which ge nerated this result tra nsmitted reference range : <=4.0. The reference r abdifatah was not used to int erpret this result as normal/abnormal . [facility] CypressJowhrtfJNNNJFJEON0260-34-17 11:42:00 Test Item Value Reference Range Interpretation Comments Basophils (test code = 0.7 See_Comment [Aut omated message] The Basophils) system which ge nerated this result tra nsmitted reference range : <=1.0. The reference r abdifatah was not used to int erpret this result as normal/abnormal . [facility] CypressKympjarFWCHLERMMR9798-79-22 11:42:00 Test Item Value Reference Range Interpretation Comments Neutrophils # (test code = Neutrophils 4.8 1.5-8.1 #) [place] 052861-05-02 11:42:00 Test Item Value Reference Range Interpretation Comments Lymphocytes # (test code = Lymphocytes 2.3 1.0-5.5 #) [facility] CypressIwqkozaDJAUGIHIXS8763-84-30 11:42:00 Test Item Value Reference Range Interpretation Comments Monocytes # (test code 0.7 See_Comment [Aut omated message] The = Monocytes #) system which generated this result tra nsmitted reference range : <=0.8. The reference r abdifatah was not used to int erpret this result as normal/abnormal . [facility] CypressEhcqixaPIKWGCXXUS0611-62-56 11:42:00 Test Item Value Reference Range Interpretation Comments Eosinophils # (test code 0.4 See_Comment [A utomated message] The = Eosinophils #) system whic h generated this result tra nsmitted reference range : <=0.5. The reference r abdifatah was not used to int erpret this result as normal/abnormal . [facility] CypressHizjlmzUYUYDDXOHM9451-07-09 11:42:00 Test Item Value Reference Range Interpretation Comments Basophils # (test code 0.1 See_Comment [Aut omated message] The = Basophils #) system which generated this result tra nsmitted reference range : <=0.2. The reference r abdifatah was not used to int erpret this result as normal/abnormal . [facility]2021-05-02 11:42:00 Test Item Value Reference Range Interpretation Comments Ca Ion WB (test code = Ca Ion WB) 1.18 1.05-1.25 [place] 099461-05-02 11:42:00 Test Item Value Reference Range Interpretation Comments Ca Norm WB (test code = Ca Norm WB) 1.22 1.05-1.25 [facility] AND [id number] 19:27:00 Test Item Value Reference Range Interpretation Comments UA Color (test code = Yellow *NA*(08/26/20 2:27 UA Color) PM) [facility] AND [id number] 19:27:00 Test Item Value Reference Range Interpretation Comments UA Turbidity (test code Marked *ABN*(08/26/20 = UA Turbidity) 2:27 PM) [facility] AND [id number] 19:27:00 Test Item Value Reference Range Interpretation Comments UA Spec Grav (test code = UA Spec 1.013 1 Grav) [facility] AND [id number] 19:27:00 Test Item Value Reference Range Interpretation Comments UA pH (test code = UA pH) 8.0 1 5.0-8.0 [facility] AND [id number] 19:27:00 Test Item Value Reference Range Interpretation Comments UA Protein (test code = UA Protein) 100 mg/dL [facility] AND [id number] 19:27:00 Test Item Value Reference Range Interpretation Comments UA Glucose (test code = UA Negative mg/dL Glucose) [facility] AND [id number] 19:27:00 Test Item Value Reference Range Interpretation Comments UA Ketones (test code = UA Negative mg/dL Ketones) [facility] AND [id number] 19:27:00 Test Item Value Reference Range Interpretation Comments UA Bili (test code = Negative *NA*(08/26/20 UA Bili) 2:27 PM) [facility] AND [id number] 19:27:00 Test Item Value Reference Range Interpretation Comments UA Blood (test code = Negative (08/26/20 2:27 UA Blood) PM) [facility] AND [id number] 19:27:00 Test Item Value Reference Range Interpretation Comments UA Urobilinogen (test code = UA no gt 0.1-1.0 Urobilinogen) [facility] AND [id number] 19:27:00 Test Item Value Reference Range Interpretation Comments UA Nitrite (test code Negative (08/26/20 2:27 = UA Nitrite) PM) [facility] AND [id number] 19:27:00 Test Item Value Reference Range Interpretation Comments UA Leuk Est (test Negative (08/26/20 2:27 code = UA Leuk Est) PM) [facility] AND [id number] 19:27:00 Test Item Value Reference Range Interpretation Comments UA Sq Epi (test code = UA Sq Epi) Many /LPF [facility] AND [id number] 19:27:00 Test Item Value Reference Range Interpretation Comments UA WBC (test code = 2 See_Comment [Automa gill message] The UA WBC) system which ge nerated this result transmit gill reference range : <=5. The reference range was not used to interpr et this result as len l/abnormal. [facility] AND [id number] 19:27:00 Test Item Value Reference Range Interpretation Comments UA Color (test code = Yellow *NA*(08/26/20 2:27 UA Color) PM) [facility] AND [id number] 19:27:00 Test Item Value Reference Range Interpretation Comments UA Turbidity (test code Marked *ABN*(08/26/20 = UA Turbidity) 2:27 PM) [facility] AND [id number] 19:27:00 Test Item Value Reference Range Interpretation Comments UA Spec Grav (test code = UA Spec 1.013 1 Grav) [facility] AND [id number] 19:27:00 Test Item Value Reference Range Interpretation Comments UA pH (test code = UA pH) 8.0 1 5.0-8.0 [facility] AND [id number] 19:27:00 Test Item Value Reference Range Interpretation Comments UA Protein (test code = UA Protein) 100 mg/dL [facility] AND [id number] 19:27:00 Test Item Value Reference Range Interpretation Comments UA Glucose (test code = UA Negative mg/dL Glucose) [facility] AND [id number] 19:27:00 Test Item Value Reference Range Interpretation Comments UA Ketones (test code = UA Negative mg/dL Ketones) [facility] AND [id number] 19:27:00 Test Item Value Reference Range Interpretation Comments UA Bili (test code = Negative *NA*(08/26/20 UA Bili) 2:27 PM) [facility] AND [id number] 19:27:00 Test Item Value Reference Range Interpretation Comments UA Blood (test code = Negative (08/26/20 2:27 UA Blood) PM) [facility] AND [id number] 19:27:00 Test Item Value Reference Range Interpretation Comments UA Urobilinogen (test code = UA no gt 0.1-1.0 Urobilinogen) [facility] AND [id number] 19:27:00 Test Item Value Reference Range Interpretation Comments UA Nitrite (test code Negative (08/26/20 2:27 = UA Nitrite) PM) [facility] AND [id number] 19:27:00 Test Item Value Reference Range Interpretation Comments UA Leuk Est (test Negative (08/26/20 2:27 code = UA Leuk Est) PM) [facility] AND [id number] 19:27:00 Test Item Value Reference Range Interpretation Comments UA Sq Epi (test code = UA Sq Epi) Many /LPF [facility] AND [id number] 19:27:00 Test Item Value Reference Range Interpretation Comments UA WBC (test code = 2 See_Comment [Automa gill message] The UA WBC) system which ge nerated this result transmit gill reference range : <=5. The reference range was not used to interpr et this result as len l/abnormal. [facility]68[facility] 22:38:00 Test Item Value Reference Range Interpretation Comments Coronavirus (COVID-19) Not Detected (08/25/20 KASSY (test code = 5:38 PM) Coronavirus (COVID-19) KASSY) [id number] 22:38:00 Test Item Value Reference Range Interpretation Comments Coronavirus (COVID-19) Not Detected (08/25/20 KASSY (test code = 5:38 PM) Coronavirus (COVID-19) KASSY) [facility]2021-04-30 22:27:00 Test Item Value Reference Range Interpretation Comments Lactic Acid Lvl (test code = Lactic 1.4 0.5-2.2 Acid Lvl) [facility]2021-04-30 22:27:00 Test Item Value Reference Range Interpretation Comments Lactic Acid Lvl (test code = Lactic 1.4 0.5-2.2 Acid Lvl) [id number] 22:10:00 Test Item Value Reference Range Interpretation Comments [facility] HIV 4th GEN (test Negative *NA*(08/25/20 code = CDC HIV 4th 5:10 PM) GEN) [facility] H[id number] 22:10:00 Test Item Value Reference Range Interpretation Comments Hep C Ab (test code = Hep C Ab) NON-REACTIVE [id number] 22:10:00 Test Item Value Reference Range Interpretation Comments Hep Signal to Cut-Off (test code = Hep 0.14 1 Signal to Cut-Off) [facility] 22:10:00 Test Item Value Reference Range Interpretation Comments [facility] HIV 4th GEN (test Negative *NA*(08/25/20 code = CDC HIV 4th 5:10 PM) GEN) [place] 694271-04-30 22:10:00 Test Item Value Reference Range Interpretation Comments Hep C Ab (test code = Hep C Ab) NON-REACTIVE [place] 694271-04-30 22:10:00 Test Item Value Reference Range Interpretation Comments Hep Signal to Cut-Off (test code = Hep 0.14 1 Signal to Cut-Off) [facility]2021-04-30 22:07:00 Test Item Value Reference Range Interpretation Comments Glucose Lvl (test code = Glucose Lvl) 114 70-99 [facility]2021-04-30 22:07:00 Test Item Value Reference Range Interpretation Comments BUN (test code = BUN) 23 7-22 [place] 878481-04-30 22:07:00 Test Item Value Reference Range Interpretation Comments Creatinine Lvl (test code = Creatinine 0.62 0.50-1.40 Lvl) [facility]2021-04-30 22:07:00 Test Item Value Reference Range Interpretation Comments Sodium Lvl (test code = Sodium Lvl) 144 135-145 [facility] [id number] 22:07:00 Test Item Value Reference Range Interpretation Comments Potassium Lvl (test code = Potassium 3.4 3.5-5.1 Lvl) [facility] [id number] 22:07:00 Test Item Value Reference Range Interpretation Comments Chloride Lvl (test code = Chloride Lvl) 111 95-109 [facility] [id number] 22:07:00 Test Item Value Reference Range Interpretation Comments CO2 (test code = CO2) 28 24-32 [facility] [id number] 22:07:00 Test Item Value Reference Range Interpretation Comments Calcium Lvl (test code = Calcium Lvl) 8.9 8.5-10.5 [facility]2021-04-30 22:07:00 Test Item Value Reference Range Interpretation Comments AGAP (test code = AGAP) 8.4 10.0-20.0 [facility]2021-04-30 22:07:00 Test Item Value Reference Range Interpretation Comments eGFR (test code = eGFR) 102 [facility]ressFaxsdfsDWWAFKOBZJ5610-40-42 22:07:00 Test Item Value Reference Range Interpretation Comments WBC X 10x3 (test code = WBC X 10x3) 9.6 3.7-10.4 [place] 052861-04-30 22:07:00 Test Item Value Reference Range Interpretation Comments RBC X 10x6 (test code = RBC X 10x6) 3.41 4.20-5.40 [place] 052861-04-30 22:07:00 Test Item Value Reference Range Interpretation Comments Hgb (test code = Hgb) 11.0 12.0-16.0 [place] 052861-04-30 22:07:00 Test Item Value Reference Range Interpretation Comments Hct (test code = Hct) 32.6 36.0-48.0 [place] 052861-04-30 22:07:00 Test Item Value Reference Range Interpretation Comments MCV (test code = MCV) 95.7 80.0-98.0 [place] 052861-04-30 22:07:00 Test Item Value Reference Range Interpretation Comments MCH (test code = MCH) 32.1 pg 27.0-31.0 [facility] [id number] 22:07:00 Test Item Value Reference Range Interpretation Comments MCHC (test code = MCHC) 33.6 32.0-36.0 [place] 052861-04-30 22:07:00 Test Item Value Reference Range Interpretation Comments RDW (test code = RDW) 13.3 11.5-14.5 [place] 052861-04-30 22:07:00 Test Item Value Reference Range Interpretation Comments Platelet (test code = Platelet) 312 133-450 [facility] Cy[id number] 22:07:00 Test Item Value Reference Range Interpretation Comments MPV (test code = MPV) 7.2 7.4-10.4 [place] 052861-04-30 22:07:00 Test Item Value Reference Range Interpretation Comments Segs (test code = Segs) 59.2 45.0-75.0 [place] 052861-04-30 22:07:00 Test Item Value Reference Range Interpretation Comments Lymphocytes (test code = Lymphocytes) 25.6 20.0-40.0 [facility] [id number] 22:07:00 Test Item Value Reference Range Interpretation Comments Monocytes (test code = Monocytes) 11.8 2.0-12.0 [facility] Cy[id number] 22:07:00 Test Item Value Reference Range Interpretation Comments Eosinophils (test code = 2.6 See_Comment [A utomated message] The Eosinophils) system which ge nerated this result tra nsmitted reference range : <=4.0. The reference r abdifatah was not used to int erpret this result as normal/abnormal . [facility] C[id number] 22:07:00 Test Item Value Reference Range Interpretation Comments Basophils (test code = 0.8 See_Comment [Aut omated message] The Basophils) system which ge nerated this result tra nsmitted reference range : <=1.0. The reference r abdifatah was not used to int erpret this result as normal/abnormal . [facility] CypressSganxhwLTLYQGTFEJ5092-68-56 22:07:00 Test Item Value Reference Range Interpretation Comments Neutrophils # (test code = Neutrophils 5.7 1.5-8.1 #) [facility] CypressMjqgaftNNIJCQRLXY1389-21-78 22:07:00 Test Item Value Reference Range Interpretation Comments Lymphocytes # (test code = Lymphocytes 2.5 1.0-5.5 #) [facility] CypressDmtreyyCZEDMTUHNX1897-38-09 22:07:00 Test Item Value Reference Range Interpretation Comments Monocytes # (test code 1.1 See_Comment [Aut omated message] The = Monocytes #) system which generated this result tra nsmitted reference range : <=0.8. The reference r abdifatah was not used to int erpret this result as normal/abnormal . [facility] Cy[id number] 22:07:00 Test Item Value Reference Range Interpretation Comments Eosinophils # (test code 0.3 See_Comment [A utomated message] The = Eosinophils #) system whic h generated this result tra nsmitted reference range : <=0.5. The reference r abdifatah was not used to int erpret this result as normal/abnormal . [facility] CypressYxhqoklWUQJWGLKSY8889-54-74 22:07:00 Test Item Value Reference Range Interpretation Comments Basophils # (test code 0.1 See_Comment [Aut omated message] The = Basophils #) system which generated this result tra nsmitted reference range : <=0.2. The reference r abdifatah was not used to int erpret this result as normal/abnormal . [facility]2021-04-30 22:07:00 Test Item Value Reference Range Interpretation Comments Glucose Lvl (test code = Glucose Lvl) 114 70-99 [place] 878481-04-30 22:07:00 Test Item Value Reference Range Interpretation Comments BUN (test code = BUN) 23 7-22 [place] 878481-04-30 22:07:00 Test Item Value Reference Range Interpretation Comments Creatinine Lvl (test code = Creatinine 0.62 0.50-1.40 Lvl) [place] 878481-04-30 22:07:00 Test Item Value Reference Range Interpretation Comments Sodium Lvl (test code = Sodium Lvl) 144 135-145 [place] 878481-04-30 22:07:00 Test Item Value Reference Range Interpretation Comments Potassium Lvl (test code = Potassium 3.4 3.5-5.1 Lvl) [facility]2021-04-30 22:07:00 Test Item Value Reference Range Interpretation Comments Chloride Lvl (test code = Chloride Lvl) 111 95-109 [place] 878481-04-30 22:07:00 Test Item Value Reference Range Interpretation Comments CO2 (test code = CO2) 28 24-32 [place] 878481-04-30 22:07:00 Test Item Value Reference Range Interpretation Comments Calcium Lvl (test code = Calcium Lvl) 8.9 8.5-10.5 [place] 878481-04-30 22:07:00 Test Item Value Reference Range Interpretation Comments AGAP (test code = AGAP) 8.4 10.0-20.0 [place] 878481-04-30 22:07:00 Test Item Value Reference Range Interpretation Comments eGFR (test code = eGFR) 102 [place] 052861-04-30 22:07:00 Test Item Value Reference Range Interpretation Comments WBC X 10x3 (test code = WBC X 10x3) 9.6 3.7-10.4 [place] 052861-04-30 22:07:00 Test Item Value Reference Range Interpretation Comments RBC X 10x6 (test code = RBC X 10x6) 3.41 4.20-5.40 [facility]SkqnxekFWRUPOMMQK6205-41-71 22:07:00 Test Item Value Reference Range Interpretation Comments Hgb (test code = Hgb) 11.0 12.0-16.0 [facility] CypressDytrsaiLKQGIZTVBI7069-38-94 22:07:00 Test Item Value Reference Range Interpretation Comments Hct (test code = Hct) 32.6 36.0-48.0 [facility] CypressBvcfbgqTMPDODGIRP2683-65-20 22:07:00 Test Item Value Reference Range Interpretation Comments MCV (test code = MCV) 95.7 80.0-98.0 [facility] CypressSvovrglSKMPFTUVUF7352-20-15 22:07:00 Test Item Value Reference Range Interpretation Comments MCH (test code = MCH) 32.1 pg 27.0-31.0 [facility] CypressNpwupnnSVINQBDOWY6531-18-49 22:07:00 Test Item Value Reference Range Interpretation Comments MCHC (test code = MCHC) 33.6 32.0-36.0 [facility] CypressOifpunaWKUQWOWVDV4175-11-95 22:07:00 Test Item Value Reference Range Interpretation Comments RDW (test code = RDW) 13.3 11.5-14.5 [facility] CypressEmrwrowRQBLLZNMLY7976-44-97 22:07:00 Test Item Value Reference Range Interpretation Comments Platelet (test code = Platelet) 312 133-450 [facility] CypressRjbvmhdNTHFHDWJAS6835-31-01 22:07:00 Test Item Value Reference Range Interpretation Comments MPV (test code = MPV) 7.2 7.4-10.4 [facility] CypressGkwxgblMSJSNLISLK4438-77-28 22:07:00 Test Item Value Reference Range Interpretation Comments Segs (test code = Segs) 59.2 45.0-75.0 [facility] CypressVmhtnnoOFPAWWSRMX5398-12-72 22:07:00 Test Item Value Reference Range Interpretation Comments Lymphocytes (test code = Lymphocytes) 25.6 20.0-40.0 [place] 052861-04-30 22:07:00 Test Item Value Reference Range Interpretation Comments Monocytes (test code = Monocytes) 11.8 2.0-12.0 [facility] CypressKwbrumfFYHEHUAXWI5508-50-36 22:07:00 Test Item Value Reference Range Interpretation Comments Eosinophils (test code = 2.6 See_Comment [A utomated message] The Eosinophils) system which ge nerated this result tra nsmitted reference range : <=4.0. The reference r abdifatah was not used to int erpret this result as normal/abnormal . [facility] CypressYgkilufCIOBAAPZTM4612-97-86 22:07:00 Test Item Value Reference Range Interpretation Comments Basophils (test code = 0.8 See_Comment [Aut omated message] The Basophils) system which ge nerated this result tra nsmitted reference range : <=1.0. The reference r abdifatah was not used to int erpret this result as normal/abnormal . [facility] CypressUitfjzkQKOHTCPJBH0370-38-94 22:07:00 Test Item Value Reference Range Interpretation Comments Neutrophils # (test code = Neutrophils 5.7 1.5-8.1 #) [facility] CypressSeksestBXHYSOLTTA8113-40-29 22:07:00 Test Item Value Reference Range Interpretation Comments Lymphocytes # (test code = Lymphocytes 2.5 1.0-5.5 #) [facility] CypressEapwzbsQMCNFPWHZZ1473-32-11 22:07:00 Test Item Value Reference Range Interpretation Comments Monocytes # (test code 1.1 See_Comment [Aut omated message] The = Monocytes #) system which generated this result tra nsmitted reference range : <=0.8. The reference r abdifatah was not used to int erpret this result as normal/abnormal . [facility] CypressRoxnfipMICHVITIBB8521-13-33 22:07:00 Test Item Value Reference Range Interpretation Comments Eosinophils # (test code 0.3 See_Comment [A utomated message] The = Eosinophils #) system whic h generated this result tra nsmitted reference range : <=0.5. The reference r abdifatah was not used to int erpret this result as normal/abnormal . [facility] CypressTgqwuxwUFPBWYWAQT1335-62-71 22:07:00 Test Item Value Reference Range Interpretation Comments Basophils # (test code 0.1 See_Comment [Aut omated message] The = Basophils #) system which generated this result tra nsmitted reference range : <=0.2. The reference r abdifatah was not used to int erpret this result as normal/abnormal . [facility] CenterWlelinyZIKABYPPCQ5113-23-80 15:56:00 Test Item Value Reference Range Interpretation Comments Vanco Tr (test code = Vanco Tr) 12.8 [facility]EwhbtfhMLABJHLIIA7803-17-69 15:56:00 Test Item Value Reference Range Interpretation Comments Vanco Tr TND (test code = Vanco Tr 1000 1 TND) [facility] CenterLygegoqIPYJNBYNSU2805-22-95 15:56:00 Test Item Value Reference Range Interpretation Comments Vanco Tr (test code = Vanco Tr) 12.8 [facility] CenterOiymadxQKZJNKIQDT0818-01-39 15:56:00 Test Item Value Reference Range Interpretation Comments Vanco Tr TND (test code = Vanco Tr 1000 1 TND) [facility] CenterZgywrvjSDGMXUBJYW5988-90-69 20:53:00 Test Item Value Reference Range Interpretation Comments Vanco Tr (test code = Vanco Tr) 14.1 [facility] CenterDmgcpkbVAOKUQAZRP2923-12-93 20:53:00 Test Item Value Reference Range Interpretation Comments Vanco Tr TND (test code = Vanco Tr 1600 1 TND) [facility] ResourcesFolfhupLUCXLEUCEH0930-89-64 20:53:00 Test Item Value Reference Range Interpretation Comments Vanco Tr (test code = Vanco Tr) 14.1 [facility] CenterOpqenheJKFLYADZNX9813-04-96 20:53:00 Test Item Value Reference Range Interpretation Comments Vanco Tr TND (test code = Vanco Tr 1600 1 TND) [facility]2021-04-26 10:58:00 Test Item Value Reference Range Interpretation Comments Glucose Lvl (test code = Glucose Lvl) 91 70-99 [facility]2021-04-26 10:58:00 Test Item Value Reference Range Interpretation Comments BUN (test code = BUN) 6 7-22 [facility]2021-04-26 10:58:00 Test Item Value Reference Range Interpretation Comments Creatinine Lvl (test code = Creatinine 0.39 0.50-1.40 Lvl) [facility]2021-04-26 10:58:00 Test Item Value Reference Range Interpretation Comments Sodium Lvl (test code = Sodium Lvl) 141 135-145 [facility]2021-04-26 10:58:00 Test Item Value Reference Range Interpretation Comments Potassium Lvl (test code = Potassium 3.3 3.5-5.1 Lvl) [place] 878481-04-26 10:58:00 Test Item Value Reference Range Interpretation Comments Chloride Lvl (test code = Chloride Lvl) 109 95-109 [place] 878481-04-26 10:58:00 Test Item Value Reference Range Interpretation Comments CO2 (test code = CO2) 25 24-32 [place] 878481-04-26 10:58:00 Test Item Value Reference Range Interpretation Comments Calcium Lvl (test code = Calcium Lvl) 8.7 8.5-10.5 [place] 878481-04-26 10:58:00 Test Item Value Reference Range Interpretation Comments AGAP (test code = AGAP) 10.3 10.0-20.0 [place] 878481-04-26 10:58:00 Test Item Value Reference Range Interpretation Comments eGFR (test code = eGFR) 118 [facility] CypressJvnhdfxPKVRTPODAH1858-03-25 10:58:00 Test Item Value Reference Range Interpretation Comments WBC (test code = WBC) 7.5 3.7-10.4 [place] 052861-04-26 10:58:00 Test Item Value Reference Range Interpretation Comments RBC (test code = RBC) 2.99 4.20-5.40 [place] 052861-04-26 10:58:00 Test Item Value Reference Range Interpretation Comments Hgb (test code = Hgb) 10.0 12.0-16.0 [place] [address]-04-26 10:58:00 Test Item Value Reference Range Interpretation Comments Hct (test code = Hct) 28.2 36.0-48.0 [place] [address]-04-26 10:58:00 Test Item Value Reference Range Interpretation Comments MCV (test code = MCV) 94.1 80.0-98.0 [place] [address]-04-26 10:58:00 Test Item Value Reference Range Interpretation Comments MCH (test code = MCH) 33.5 pg 27.0-31.0 [place] 052861-04-26 10:58:00 Test Item Value Reference Range Interpretation Comments MCHC (test code = MCHC) 35.6 32.0-36.0 [place] 052861-04-26 10:58:00 Test Item Value Reference Range Interpretation Comments RDW (test code = RDW) 12.6 11.5-14.5 [place] 052861-04-26 10:58:00 Test Item Value Reference Range Interpretation Comments Platelet (test code = Platelet) 144 133-450 [place] 052861-04-26 10:58:00 Test Item Value Reference Range Interpretation Comments MPV (test code = MPV) 8.5 7.4-10.4 [place] 052861-04-26 10:58:00 Test Item Value Reference Range Interpretation Comments Segs (test code = Segs) 53.7 45.0-75.0 [place] 052861-04-26 10:58:00 Test Item Value Reference Range Interpretation Comments Lymphocytes (test code = Lymphocytes) 34.1 20.0-40.0 [place] 052861-04-26 10:58:00 Test Item Value Reference Range Interpretation Comments Monocytes (test code = Monocytes) 11.1 2.0-12.0 [place] 052861-04-26 10:58:00 Test Item Value Reference Range Interpretation Comments Eosinophils (test code = 0.7 See_Comment [A utomated message] The Eosinophils) system which ge nerated this result tra nsmitted reference range : <=4.0. The reference r abdifatah was not used to int erpret this result as normal/abnormal . [facility] CypressBsblvgwRUVUEXWMVB9491-96-99 10:58:00 Test Item Value Reference Range Interpretation Comments Basophils (test code = 0.4 See_Comment [Aut omated message] The Basophils) system which ge nerated this result tra nsmitted reference range : <=1.0. The reference r abdifatah was not used to int erpret this result as normal/abnormal . [facility] CypressTfldleyLMKKXFCSLY0444-39-85 10:58:00 Test Item Value Reference Range Interpretation Comments Neutrophils # (test code = Neutrophils 4.0 1.5-8.1 #) [place] 052861-04-26 10:58:00 Test Item Value Reference Range Interpretation Comments Lymphocytes # (test code = Lymphocytes 2.6 1.0-5.5 #) [place] 052861-04-26 10:58:00 Test Item Value Reference Range Interpretation Comments Monocytes # (test code 0.8 See_Comment [Aut omated message] The = Monocytes #) system which generated this result tra nsmitted reference range : <=0.8. The reference r abdifatah was not used to int erpret this result as normal/abnormal . [facility] CypressYmhqjjuRRTHQEWUNV4400-36-55 10:58:00 Test Item Value Reference Range Interpretation Comments Eosinophils # (test code 0.1 See_Comment [A utomated message] The = Eosinophils #) system whic h generated this result tra nsmitted reference range : <=0.5. The reference r abdifatah was not used to int erpret this result as normal/abnormal . [facility] [id number] 10:58:00 Test Item Value Reference Range Interpretation Comments Glucose Lvl (test code = Glucose Lvl) 91 70-99 [facility]2021-04-26 10:58:00 Test Item Value Reference Range Interpretation Comments BUN (test code = BUN) 6 7-22 [facility] CenterPostdeckATRIUM HEALTH PINEVIL[facility]HABILITATION HOSPITALNKCBI5101-35-45 10:58:00 Test Item Value Reference Range Interpretation Comments Creatinine Lvl (test code = Creatinine 0.39 0.50-1.40 Lvl) [facility]2021-04-26 10:58:00 Test Item Value Reference Range Interpretation Comments Sodium Lvl (test code = Sodium Lvl) 141 135-145 [facility] [id number] 10:58:00 Test Item Value Reference Range Interpretation Comments Potassium Lvl (test code = Potassium 3.3 3.5-5.1 Lvl) [facility] CenterPostdeckATRIUM HE[facility]INEVIL[facility] REHABILITATION HOSPITALPDCSL8478-76-70 10:58:00 Test Item Value Reference Range Interpretation Comments Chloride Lvl (test code = Chloride Lvl) 109 95-109 [facility] [id number] 10:58:00 Test Item Value Reference Range Interpretation Comments CO2 (test code = CO2) 25 24-32 [facility] [id number] 10:58:00 Test Item Value Reference Range Interpretation Comments Calcium Lvl (test code = Calcium Lvl) 8.7 8.5-10.5 [facility]2021-04-26 10:58:00 Test Item Value Reference Range Interpretation Comments AGAP (test code = AGAP) 10.3 10.0-20.0 [facility] GXZXG8796-30-05 10:58:00 Test Item Value Reference Range Interpretation Comments eGFR (test code = eGFR) 118 [facility] CypressLkkgjtpUCGCIYWWCY8640-88-37 10:58:00 Test Item Value Reference Range Interpretation Comments WBC (test code = WBC) 7.5 3.7-10.4 [facility] CypressKomlwziCNMUUDUOUM1062-55-82 10:58:00 Test Item Value Reference Range Interpretation Comments RBC (test code = RBC) 2.99 4.20-5.40 [facility] CypressOdbitprBQKXDKEYTW5742-38-67 10:58:00 Test Item Value Reference Range Interpretation Comments Hgb (test code = Hgb) 10.0 12.0-16.0 [facility] CypressBzlsvbmLWRVJBZJOL2853-34-08 10:58:00 Test Item Value Reference Range Interpretation Comments Hct (test code = Hct) 28.2 36.0-48.0 [facility] CypressNxralhtHDVDHLJTED2564-60-82 10:58:00 Test Item Value Reference Range Interpretation Comments MCV (test code = MCV) 94.1 80.0-98.0 [facility] CypressXkwwholIIOLSTXZGW7088-47-44 10:58:00 Test Item Value Reference Range Interpretation Comments MCH (test code = MCH) 33.5 pg 27.0-31.0 [facility] CypressOcwmupmEOGBVHYOMD1077-60-98 10:58:00 Test Item Value Reference Range Interpretation Comments MCHC (test code = MCHC) 35.6 32.0-36.0 [facility] CypressRlxyxvaLHSDRCAQJH8850-80-86 10:58:00 Test Item Value Reference Range Interpretation Comments RDW (test code = RDW) 12.6 11.5-14.5 [facility] CypressDwmfsgzEIWLHRZARW3767-95-07 10:58:00 Test Item Value Reference Range Interpretation Comments Platelet (test code = Platelet) 144 133-450 [facility] CypressIdxabmyRKHQUWYSVS7496-92-69 10:58:00 Test Item Value Reference Range Interpretation Comments MPV (test code = MPV) 8.5 7.4-10.4 [place] 052861-04-26 10:58:00 Test Item Value Reference Range Interpretation Comments Segs (test code = Segs) 53.7 45.0-75.0 [place] 052861-04-26 10:58:00 Test Item Value Reference Range Interpretation Comments Lymphocytes (test code = Lymphocytes) 34.1 20.0-40.0 [facility] CypressHctzxwwSGKWCIPCRV1335-52-92 10:58:00 Test Item Value Reference Range Interpretation Comments Monocytes (test code = Monocytes) 11.1 2.0-12.0 [facility] CypressXmfuhiwGRWHZBJLZL0082-92-99 10:58:00 Test Item Value Reference Range Interpretation Comments Eosinophils (test code = 0.7 See_Comment [A utomated message] The Eosinophils) system which ge nerated this result tra nsmitted reference range : <=4.0. The reference r abdifatah was not used to int erpret this result as normal/abnormal . [facility] CypressUhknwkjUNWAHUVXXR8437-50-59 10:58:00 Test Item Value Reference Range Interpretation Comments Basophils (test code = 0.4 See_Comment [Aut omated message] The Basophils) system which ge nerated this result tra nsmitted reference range : <=1.0. The reference r abdifatah was not used to int erpret this result as normal/abnormal . [facility] CypressTeowfptQYYIJYDIXO7513-05-85 10:58:00 Test Item Value Reference Range Interpretation Comments Neutrophils # (test code = Neutrophils 4.0 1.5-8.1 #) [facility] CypressDnefkikNSZKRFVQIS4956-47-90 10:58:00 Test Item Value Reference Range Interpretation Comments Lymphocytes # (test code = Lymphocytes 2.6 1.0-5.5 #) [facility] CypressHvbusjpNRCOBZRDDE5589-11-02 10:58:00 Test Item Value Reference Range Interpretation Comments Monocytes # (test code 0.8 See_Comment [Aut omated message] The = Monocytes #) system which generated this result tra nsmitted reference range : <=0.8. The reference r abdifatah was not used to int erpret this result as normal/abnormal . [facility] CypressXhiqjguMEOOQEKUBT0698-43-50 10:58:00 Test Item Value Reference Range Interpretation Comments Eosinophils # (test code 0.1 See_Comment [A utomated message] The = Eosinophils #) system whic h generated this result tra nsmitted reference range : <=0.5. The reference r abdifatah was not used to int erpret this result as normal/abnormal . [facility] [id number] 12:04:00 Test Item Value Reference Range Interpretation Comments Lactic Acid Lvl (test code = Lactic 1.3 0.5-2.2 Acid Lvl) [place] 878481-04-25 12:04:00 Test Item Value Reference Range Interpretation Comments Lactic Acid Lvl (test code = Lactic 1.3 0.5-2.2 Acid Lvl) [place] 878481-04-25 09:24:00 Test Item Value Reference Range Interpretation Comments Glucose Lvl (test code = Glucose Lvl) 112 70-99 [place] 878481-04-25 09:24:00 Test Item Value Reference Range Interpretation Comments BUN (test code = BUN) 15 7-22 [place] 878481-04-25 09:24:00 Test Item Value Reference Range Interpretation Comments Creatinine Lvl (test code = Creatinine 0.51 0.50-1.40 Lvl) [place] 878481-04-25 09:24:00 Test Item Value Reference Range Interpretation Comments Sodium Lvl (test code = Sodium Lvl) 141 135-145 [place] 878481-04-25 09:24:00 Test Item Value Reference Range Interpretation Comments Potassium Lvl (test code = Potassium 3.7 3.5-5.1 Lvl) [place] 878481-04-25 09:24:00 Test Item Value Reference Range Interpretation Comments Chloride Lvl (test code = Chloride Lvl) 108 95-109 [place] 878481-04-25 09:24:00 Test Item Value Reference Range Interpretation Comments CO2 (test code = CO2) 29 24-32 [place] 878481-04-25 09:24:00 Test Item Value Reference Range Interpretation Comments Calcium Lvl (test code = Calcium Lvl) 8.7 8.5-10.5 [place] 878481-04-25 09:24:00 Test Item Value Reference Range Interpretation Comments AGAP (test code = AGAP) 7.7 10.0-20.0 [place] 878481-04-25 09:24:00 Test Item Value Reference Range Interpretation Comments eGFR (test code = eGFR) 109 [place] 052861-04-25 09:24:00 Test Item Value Reference Range Interpretation Comments Segs (test code = Segs) 65.0 45.0-75.0 [place] 052861-04-25 09:24:00 Test Item Value Reference Range Interpretation Comments Lymphocytes (test code = Lymphocytes) 23.4 20.0-40.0 [place] 052861-04-25 09:24:00 Test Item Value Reference Range Interpretation Comments Monocytes (test code = Monocytes) 11.1 2.0-12.0 [place] 052861-04-25 09:24:00 Test Item Value Reference Range Interpretation Comments Eosinophils (test code = 0.2 See_Comment [A utomated message] The Eosinophils) system which ge nerated this result tra nsmitted reference range : <=4.0. The reference r abdifatah was not used to int erpret this result as normal/abnormal . [facility] CypressFgspueoTRSEFICOYR4167-90-73 09:24:00 Test Item Value Reference Range Interpretation Comments Basophils (test code = 0.3 See_Comment [Aut omated message] The Basophils) system which ge nerated this result tra nsmitted reference range : <=1.0. The reference r abdifatah was not used to int erpret this result as normal/abnormal . [facility] CypressEurqmuuXCHZNYKGON3725-24-90 09:24:00 Test Item Value Reference Range Interpretation Comments Neutrophils # (test code = Neutrophils 7.6 1.5-8.1 #) [facility] CypressKgzokguASVMHKDPVM9249-36-05 09:24:00 Test Item Value Reference Range Interpretation Comments Lymphocytes # (test code = Lymphocytes 2.7 1.0-5.5 #) [place] 052861-04-25 09:24:00 Test Item Value Reference Range Interpretation Comments Monocytes # (test code 1.3 See_Comment [Aut omated message] The = Monocytes #) system which generated this result tra nsmitted reference range : <=0.8. The reference r abdifatah was not used to int erpret this result as normal/abnormal . [place] 052861-04-25 09:24:00 Test Item Value Reference Range Interpretation Comments WBC (test code = WBC) 11.7 3.7-10.4 [place] 052861-04-25 09:24:00 Test Item Value Reference Range Interpretation Comments RBC (test code = RBC) 3.32 4.20-5.40 [place] 052861-04-25 09:24:00 Test Item Value Reference Range Interpretation Comments Hgb (test code = Hgb) 10.7 12.0-16.0 [place] [address]-04-25 09:24:00 Test Item Value Reference Range Interpretation Comments Hct (test code = Hct) 31.3 36.0-48.0 [place] [address]-04-25 09:24:00 Test Item Value Reference Range Interpretation Comments MCV (test code = MCV) 94.1 80.0-98.0 [place] [address]-04-25 09:24:00 Test Item Value Reference Range Interpretation Comments MCH (test code = MCH) 32.3 pg 27.0-31.0 [place] [address]-04-25 09:24:00 Test Item Value Reference Range Interpretation Comments MCHC (test code = MCHC) 34.3 32.0-36.0 [place] [address]-04-25 09:24:00 Test Item Value Reference Range Interpretation Comments RDW (test code = RDW) 12.8 11.5-14.5 [place] [address]-04-25 09:24:00 Test Item Value Reference Range Interpretation Comments Platelet (test code = Platelet) 157 133-450 [place] [address]-04-25 09:24:00 Test Item Value Reference Range Interpretation Comments MPV (test code = MPV) 8.4 7.4-10.4 [place] 878481-04-25 09:24:00 Test Item Value Reference Range Interpretation Comments Glucose Lvl (test code = Glucose Lvl) 112 70-99 [place] 878481-04-25 09:24:00 Test Item Value Reference Range Interpretation Comments BUN (test code = BUN) 15 7-22 [place] 878481-04-25 09:24:00 Test Item Value Reference Range Interpretation Comments Creatinine Lvl (test code = Creatinine 0.51 0.50-1.40 Lvl) [place] 878481-04-25 09:24:00 Test Item Value Reference Range Interpretation Comments Sodium Lvl (test code = Sodium Lvl) 141 135-145 [place] 878481-04-25 09:24:00 Test Item Value Reference Range Interpretation Comments Potassium Lvl (test code = Potassium 3.7 3.5-5.1 Lvl) [place] 878481-04-25 09:24:00 Test Item Value Reference Range Interpretation Comments Chloride Lvl (test code = Chloride Lvl) 108 95-109 [place] 878481-04-25 09:24:00 Test Item Value Reference Range Interpretation Comments CO2 (test code = CO2) 29 24-32 [place] 878481-04-25 09:24:00 Test Item Value Reference Range Interpretation Comments Calcium Lvl (test code = Calcium Lvl) 8.7 8.5-10.5 [place] 878481-04-25 09:24:00 Test Item Value Reference Range Interpretation Comments AGAP (test code = AGAP) 7.7 10.0-20.0 [place] 878481-04-25 09:24:00 Test Item Value Reference Range Interpretation Comments eGFR (test code = eGFR) 109 [place] 052861-04-25 09:24:00 Test Item Value Reference Range Interpretation Comments Segs (test code = Segs) 65.0 45.0-75.0 [place] 052861-04-25 09:24:00 Test Item Value Reference Range Interpretation Comments Lymphocytes (test code = Lymphocytes) 23.4 20.0-40.0 [place] 052861-04-25 09:24:00 Test Item Value Reference Range Interpretation Comments Monocytes (test code = Monocytes) 11.1 2.0-12.0 [place] 052861-04-25 09:24:00 Test Item Value Reference Range Interpretation Comments Eosinophils (test code = 0.2 See_Comment [A utomated message] The Eosinophils) system which ge nerated this result tra nsmitted reference range : <=4.0. The reference r abdifatah was not used to int erpret this result as normal/abnormal . [place] 052861-04-25 09:24:00 Test Item Value Reference Range Interpretation Comments Basophils (test code = 0.3 See_Comment [Aut omated message] The Basophils) system which ge nerated this result tra nsmitted reference range : <=1.0. The reference r abdifatah was not used to int erpret this result as normal/abnormal . [place] 052861-04-25 09:24:00 Test Item Value Reference Range Interpretation Comments Neutrophils # (test code = Neutrophils 7.6 1.5-8.1 #) [facility] [facility]xk[facility]LLNBSZKB6079[facility] 09:24:00 Test Item Value Reference Range Interpretation Comments Lymphocytes # (test code = Lymphocytes 2.7 1.0-5.5 #) [place] 052861-04-25 09:24:00 Test Item Value Reference Range Interpretation Comments Monocytes # (test code 1.3 See_Comment [Aut omated message] The = Monocytes #) system which generated this result tra nsmitted reference range : <=0.8. The reference r abdifatah was not used to int erpret this result as normal/abnormal . [facility]YdkomyeUQVMIPTHKW5104-36-59 09:24:00 Test Item Value Reference Range Interpretation Comments WBC (test code = WBC) 11.7 3.7-10.4 [place] 052861-04-25 09:24:00 Test Item Value Reference Range Interpretation Comments RBC (test code = RBC) 3.32 4.20-5.40 [place] 052861-04-25 09:24:00 Test Item Value Reference Range Interpretation Comments Hgb (test code = Hgb) 10.7 12.0-16.0 [place] 052861-04-25 09:24:00 Test Item Value Reference Range Interpretation Comments Hct (test code = Hct) 31.3 36.0-48.0 [facility]ressAzcnsosSJJJQKCBPF2079-61-04 09:24:00 Test Item Value Reference Range Interpretation Comments MCV (test code = MCV) 94.1 80.0-98.0 [place] 052861-04-25 09:24:00 Test Item Value Reference Range Interpretation Comments MCH (test code = MCH) 32.3 pg 27.0-31.0 [place] 052861-04-25 09:24:00 Test Item Value Reference Range Interpretation Comments MCHC (test code = MCHC) 34.3 32.0-36.0 [place] 052861-04-25 09:24:00 Test Item Value Reference Range Interpretation Comments RDW (test code = RDW) 12.8 11.5-14.5 [place] 052861-04-25 09:24:00 Test Item Value Reference Range Interpretation Comments Platelet (test code = Platelet) 157 133-450 [place] 052861-04-25 09:24:00 Test Item Value Reference Range Interpretation Comments MPV (test code = MPV) 8.4 7.4-10.4 [facility] Pofctrrwz2788-02-67 13:45:00 Test Item Value Reference Range Interpretation Comments Culture: Anaerobic No Anaerobes Isolated (test code = Culture: After 5 Days Anaerobic) [facility]: Nvaxqmift4263-74-06 13:45:00 Test Item Value Reference Range Interpretation Comments Culture: Anaerobic Rare Propionibacterium (test code = acnes Culture: Anaerobic) [facility] Llklrj0765-87-99 13:45:00 Test Item Value Reference Range Interpretation Comments Gram Stain Report Moderate WBC's No (test code = Gram Organisms Seen Stain Report) [facility]: Aspirate/Body Fluid/Uawgla7634-51-91 13:45:00 Test Item Value Reference Range Interpretation Comments Culture: Aspirate/Body Fluid/Tissue No Growth (test code = Culture: Aspirate/Body Fluid/Tissue) [facility] Peuxzo3493-43-04 13:45:00 Test Item Value Reference Range Interpretation Comments Gram Stain Report Moderate WBC's No (test code = Gram Squamous Epithelial Stain Report) Cells; No Organisms Seen [facility]: Wound/Abscess w/Gram Hdyhv7606-44-56 13:45:00 Test Item Value Reference Range Interpretation Comments Culture: Wound/Abscess w/Gram Stain No Growth (test code = Culture: Wound/Abscess w/Gram Stain) [facility] Jsmczcslx1191-14-35 13:45:00 Test Item Value Reference Range Interpretation Comments Culture: Anaerobic No Anaerobes Isolated (test code = Culture: After 5 Days Anaerobic) [facility]: Fhlbdkroh0816-70-03 13:45:00 Test Item Value Reference Range Interpretation Comments Culture: Anaerobic Rare Propionibacterium (test code = acnes Culture: Anaerobic) [facility] Bryehx0000-19-16 13:45:00 Test Item Value Reference Range Interpretation Comments Gram Stain Report Moderate WBC's No (test code = Gram Organisms Seen Stain Report) [facility]: Aspirate/Body Fluid/Glyiua5913-78-92 13:45:00 Test Item Value Reference Range Interpretation Comments Culture: Aspirate/Body Fluid/Tissue No Growth (test code = Culture: Aspirate/Body Fluid/Tissue) [facility] Lmqkod7633-40-83 13:45:00 Test Item Value Reference Range Interpretation Comments Gram Stain Report Moderate WBC's No (test code = Gram Squamous Epithelial Stain Report) Cells; No Organisms Seen [facility] Center[facility]: Wound/Abscess w/Gram Znlbe9760-78-86 13:45:00 Test Item Value Reference Range Interpretation Comments Culture: Wound/Abscess w/Gram Stain No Growth (test code = Culture: Wound/Abscess w/Gram Stain) [facility]2021-04-23 08:59:00 Test Item Value Reference Range Interpretation Comments Glucose Lvl (test code = Glucose Lvl) 101 70-99 [facility]2021-04-23 08:59:00 Test Item Value Reference Range Interpretation Comments BUN (test code = BUN) 22 7-22 [facility]2021-04-23 08:59:00 Test Item Value Reference Range Interpretation Comments Creatinine Lvl (test code = Creatinine 0.59 0.50-1.40 Lvl) [facility]2021-04-23 08:59:00 Test Item Value Reference Range Interpretation Comments Sodium Lvl (test code = Sodium Lvl) 143 135-145 [facility]2021-04-23 08:59:00 Test Item Value Reference Range Interpretation Comments Potassium Lvl (test code = Potassium 3.5 3.5-5.1 Lvl) [facility]2021-04-23 08:59:00 Test Item Value Reference Range Interpretation Comments Chloride Lvl (test code = Chloride Lvl) 110 95-109 [facility]2021-04-23 08:59:00 Test Item Value Reference Range Interpretation Comments CO2 (test code = CO2) 24 24-32 [facility]2021-04-23 08:59:00 Test Item Value Reference Range Interpretation Comments Calcium Lvl (test code = Calcium Lvl) 9.2 8.5-10.5 [facility]2021-04-23 08:59:00 Test Item Value Reference Range Interpretation Comments AGAP (test code = AGAP) 12.5 10.0-20.0 [facility]2021-04-23 08:59:00 Test Item Value Reference Range Interpretation Comments eGFR (test code = eGFR) 104 [facility]ressNbeisyvGLYAMPWUMB1332-87-96 08:59:00 Test Item Value Reference Range Interpretation Comments PT (test code = PT) 12.5 s 12.0-14.7 [place] 052861-04-23 08:59:00 Test Item Value Reference Range Interpretation Comments INR (test code = INR) 0.94 1 0.85-1.17 [place] 052861-04-23 08:59:00 Test Item Value Reference Range Interpretation Comments PTT (test code = PTT) 27.7 s 22.9-35.8 [place] [address]-04-23 08:59:00 Test Item Value Reference Range Interpretation Comments WBC (test code = WBC) 6.6 3.7-10.4 [place] [address]-04-23 08:59:00 Test Item Value Reference Range Interpretation Comments RBC (test code = RBC) 4.08 4.20-5.40 [place] 052861-04-23 08:59:00 Test Item Value Reference Range Interpretation Comments Hgb (test code = Hgb) 13.4 12.0-16.0 [place] 052861-04-23 08:59:00 Test Item Value Reference Range Interpretation Comments Hct (test code = Hct) 38.8 36.0-48.0 [place] 052861-04-23 08:59:00 Test Item Value Reference Range Interpretation Comments MCV (test code = MCV) 95.1 80.0-98.0 [place] 052861-04-23 08:59:00 Test Item Value Reference Range Interpretation Comments MCH (test code = MCH) 32.8 pg 27.0-31.0 [place] 052861-04-23 08:59:00 Test Item Value Reference Range Interpretation Comments MCHC (test code = MCHC) 34.5 32.0-36.0 [place] 052861-04-23 08:59:00 Test Item Value Reference Range Interpretation Comments RDW (test code = RDW) 13.2 11.5-14.5 [place] 052861-04-23 08:59:00 Test Item Value Reference Range Interpretation Comments Platelet (test code = Platelet) 186 133-450 [place] 052861-04-23 08:59:00 Test Item Value Reference Range Interpretation Comments MPV (test code = MPV) 8.6 7.4-10.4 [place] 052861-04-23 08:59:00 Test Item Value Reference Range Interpretation Comments Segs (test code = Segs) 45.6 45.0-75.0 [place] [address]-04-23 08:59:00 Test Item Value Reference Range Interpretation Comments Lymphocytes (test code = Lymphocytes) 40.5 20.0-40.0 [place] [address]-04-23 08:59:00 Test Item Value Reference Range Interpretation Comments Monocytes (test code = Monocytes) 10.2 2.0-12.0 [place] [address]-04-23 08:59:00 Test Item Value Reference Range Interpretation Comments Eosinophils (test code = 3.0 See_Comment [A utomated message] The Eosinophils) system which ge nerated this result tra nsmitted reference range : <=4.0. The reference r abdifatah was not used to int erpret this result as normal/abnormal . [place] 052861-04-23 08:59:00 Test Item Value Reference Range Interpretation Comments Basophils (test code = 0.7 See_Comment [Aut omated message] The Basophils) system which ge nerated this result tra nsmitted reference range : <=1.0. The reference r abdifatah was not used to int erpret this result as normal/abnormal . [place] 052861-04-23 08:59:00 Test Item Value Reference Range Interpretation Comments Neutrophils # (test code = Neutrophils 3.0 1.5-8.1 #) [place] 052861-04-23 08:59:00 Test Item Value Reference Range Interpretation Comments Lymphocytes # (test code = Lymphocytes 2.7 1.0-5.5 #) [place] 052861-04-23 08:59:00 Test Item Value Reference Range Interpretation Comments Monocytes # (test code 0.7 See_Comment [Aut omated message] The = Monocytes #) system which generated this result tra nsmitted reference range : <=0.8. The reference r abdifatah was not used to int erpret this result as normal/abnormal . [place] 052861-04-23 08:59:00 Test Item Value Reference Range Interpretation Comments Eosinophils # (test code 0.2 See_Comment [A utomated message] The = Eosinophils #) system [employer] h generated this result tra nsmitted reference range : <=0.5. The reference r abdifatah was not used to int erpret this result as normal/abnormal . [facility]2021-04-23 08:59:00 Test Item Value Reference Range Interpretation Comments Glucose Lvl (test code = Glucose Lvl) 101 70-99 [place] 878481-04-23 08:59:00 Test Item Value Reference Range Interpretation Comments BUN (test code = BUN) 22 7-22 [place] 878481-04-23 08:59:00 Test Item Value Reference Range Interpretation Comments Creatinine Lvl (test code = Creatinine 0.59 0.50-1.40 Lvl) [place] 878481-04-23 08:59:00 Test Item Value Reference Range Interpretation Comments Sodium Lvl (test code = Sodium Lvl) 143 135-145 [place] 878481-04-23 08:59:00 Test Item Value Reference Range Interpretation Comments Potassium Lvl (test code = Potassium 3.5 3.5-5.1 Lvl) [place] 878481-04-23 08:59:00 Test Item Value Reference Range Interpretation Comments Chloride Lvl (test code = Chloride Lvl) 110 95-109 [place] 878481-04-23 08:59:00 Test Item Value Reference Range Interpretation Comments CO2 (test code = CO2) 24 24-32 [place] 878481-04-23 08:59:00 Test Item Value Reference Range Interpretation Comments Calcium Lvl (test code = Calcium Lvl) 9.2 8.5-10.5 [place] 878481-04-23 08:59:00 Test Item Value Reference Range Interpretation Comments AGAP (test code = AGAP) 12.5 10.0-20.0 [place] 878481-04-23 08:59:00 Test Item Value Reference Range Interpretation Comments eGFR (test code = eGFR) 104 [place] 052861-04-23 08:59:00 Test Item Value Reference Range Interpretation Comments PT (test code = PT) 12.5 s 12.0-14.7 [place] 052861-04-23 08:59:00 Test Item Value Reference Range Interpretation Comments INR (test code = INR) 0.94 1 0.85-1.17 [facility] CypressVuefxvsFIOPAQMEEK2317-22-44 08:59:00 Test Item Value Reference Range Interpretation Comments PTT (test code = PTT) 27.7 s 22.9-35.8 [place] 052861-04-23 08:59:00 Test Item Value Reference Range Interpretation Comments WBC (test code = WBC) 6.6 3.7-10.4 [facility] CypressFzjmmjiZKRNGWDJYW1875-78-91 08:59:00 Test Item Value Reference Range Interpretation Comments RBC (test code = RBC) 4.08 4.20-5.40 [facility] CypressZzktotyAFZMZNFRSM7483-21-74 08:59:00 Test Item Value Reference Range Interpretation Comments Hgb (test code = Hgb) 13.4 12.0-16.0 [facility] CypressKcttuasSSJGVNSBVU7566-89-52 08:59:00 Test Item Value Reference Range Interpretation Comments Hct (test code = Hct) 38.8 36.0-48.0 [facility] CypressVstjgzoMFUHBSGPZZ4339-37-65 08:59:00 Test Item Value Reference Range Interpretation Comments MCV (test code = MCV) 95.1 80.0-98.0 [facility] CypressYxsszinUGHVXAOXXJ5070-92-87 08:59:00 Test Item Value Reference Range Interpretation Comments MCH (test code = MCH) 32.8 pg 27.0-31.0 [facility] CypressSpkdjtpHZSGSLFUKZ9593-95-39 08:59:00 Test Item Value Reference Range Interpretation Comments MCHC (test code = MCHC) 34.5 32.0-36.0 [facility]ressPatxcxcJTWIQUIDIG2957-41-72 08:59:00 Test Item Value Reference Range Interpretation Comments RDW (test code = RDW) 13.2 11.5-14.5 [facility] CypressFaorpwlEOSIBJFYQN3614-40-57 08:59:00 Test Item Value Reference Range Interpretation Comments Platelet (test code = Platelet) 186 133-450 [facility] CypressRvyvawaLEHDROGYFA1660-63-76 08:59:00 Test Item Value Reference Range Interpretation Comments MPV (test code = MPV) 8.6 7.4-10.4 [facility] CypressConezqbXZXFYPHFUI8415-85-66 08:59:00 Test Item Value Reference Range Interpretation Comments Segs (test code = Segs) 45.6 45.0-75.0 [place] 052861-04-23 08:59:00 Test Item Value Reference Range Interpretation Comments Lymphocytes (test code = Lymphocytes) 40.5 20.0-40.0 [place] 052861-04-23 08:59:00 Test Item Value Reference Range Interpretation Comments Monocytes (test code = Monocytes) 10.2 2.0-12.0 [place] 052861-04-23 08:59:00 Test Item Value Reference Range Interpretation Comments Eosinophils (test code = 3.0 See_Comment [A utomated message] The Eosinophils) system which ge nerated this result tra nsmitted reference range : <=4.0. The reference r abdifatah was not used to int erpret this result as normal/abnormal . [address]04-23 08:59:00 Test Item Value Reference Range Interpretation Comments Basophils (test code = 0.7 See_Comment [Aut omated message] The Basophils) system which ge nerated this result tra nsmitted reference range : <=1.0. The reference r abdifatah was not used to int erpret this result as normal/abnormal . [place] 052861-04-23 08:59:00 Test Item Value Reference Range Interpretation Comments Neutrophils # (test code = Neutrophils 3.0 1.5-8.1 #) [place] [address]-04-23 08:59:00 Test Item Value Reference Range Interpretation Comments Lymphocytes # (test code = Lymphocytes 2.7 1.0-5.5 #) [place] 052861-04-23 08:59:00 Test Item Value Reference Range Interpretation Comments Monocytes # (test code 0.7 See_Comment [Aut omated message] The = Monocytes #) system which generated this result tra nsmitted reference range : <=0.8. The reference r abdifatah was not used to int erpret this result as normal/abnormal . [place] [address]-04-23 08:59:00 Test Item Value Reference Range Interpretation Comments Eosinophils # (test code 0.2 See_Comment [A utomated message] The = Eosinophils #) system [facility] h generated this result tra nsmitted reference range : <=0.5. The reference r abdifatah was not used to int erpret this result as normal/abnormal . [facility]: Yrjmf0823-08-04 20:00:00 Test Item Value Reference Range Interpretation Comments Culture: Urine Specimen contains 3 or (test code = more potential pathogens; Culture: Urine) recommend correlation with urinalysis; if catheterized specimen recommend removal and recollection. If clinical situation warrants please call the laboratory for further testing. [place] [facility] [phone]. [facility] Center[facility]: Kjxlw6047-75-82 20:00:00 Test Item Value Reference Range Interpretation Comments Culture: Urine Specimen contains 3 or (test code = more potential pathogens; Culture: Urine) recommend correlation with urinalysis; if catheterized specimen recommend removal and recollection. If clinical situation warrants please call the laboratory for further testing. [place] [facility] [phone]. [facility] CenterGwllqhpJEMTIDTXPZ6125-74-49 11:55:00 Test Item Value Reference Range Interpretation Comments ASA Effect Plt (test code = ASA Effect 483 Plt) [facility] CypressGvmdbgtUEMGGNKYFP0862-76-95 11:55:00 Test Item Value Reference Range Interpretation Comments Plav Effect Plt (test code = Plav 230 Effect Plt) [facility] CypressJkxvrvgXKQNJBMFJG4124-65-14 11:55:00 Test Item Value Reference Range Interpretation Comments ASA Effect Plt (test code = ASA Effect 483 Plt) [facility] CypressXaubenaTSPDEYIYIT5961-26-11 11:55:00 Test Item Value Reference Range Interpretation Comments Plav Effect Plt (test code = Plav 230 Effect Plt) [facility] CypressSbifuoxURMGNFPXJQ4382-60-55 09:32:00 Test Item Value Reference Range Interpretation Comments PT (test code = PT) 12.2 s 12.0-14.7 [place] 052861-04-21 09:32:00 Test Item Value Reference Range Interpretation Comments INR (test code = INR) 0.91 1 0.85-1.17 [place] [address]-04-21 09:32:00 Test Item Value Reference Range Interpretation Comments PTT (test code = PTT) 29.2 s 22.9-35.8 [place] [address]-04-21 09:32:00 Test Item Value Reference Range Interpretation Comments PT (test code = PT) 12.2 s 12.0-14.7 [place] [address]-04-21 09:32:00 Test Item Value Reference Range Interpretation Comments INR (test code = INR) 0.91 1 0.85-1.17 [facility] CypressXtkfdjbHGPPCFJRMY5494-03-00 09:32:00 Test Item Value Reference Range Interpretation Comments PTT (test code = PTT) 29.2 s 22.9-35.8 [facility] KWJSTZT9357-56-02 09:30:00 Test Item Value Reference Range Interpretation Comments ABO/Rh (test code = ABO/Rh) A POS [facility] ESVBNNH6110-48-05 09:30:00 Test Item Value Reference Range Interpretation Comments Antibody Scrn (test Negative (08/16/20 4:30 code = Antibody Scrn) AM) [facility] DCLFA9011-67-20 09:30:00 Test Item Value Reference Range Interpretation Comments Procalcitonin Lvl <0.05 ng/mL See_Comment [Automate d message] (test code = The system whic h Procalcitonin Lvl) generated this result transmit gill reference range : <=0.10. The reference range was not used to interpret this result as normal/abnormal . [facility] CypressTcecyerVRKZTHURTW1776-53-69 09:30:00 Test Item Value Reference Range Interpretation Comments Sed Rate (test code = 3 See_Comment [Auto mated message] The Sed Rate) system which ge nerated this result transmit gill reference range : <=20. The reference range was not used to interpr et this result as len l/abnormal. [facility] CypressOmlcptnMOGCKBSAZV4560-25-33 09:30:00 Test Item Value Reference Range Interpretation Comments ACT (TEG) Rapid (test code = ACT (TEG) 89 s 86-118 Rapid) [facility] CypressAnliumlMYFWROIPWT5539-64-30 09:30:00 Test Item Value Reference Range Interpretation Comments Split Point Rapid (test code = Split 0.3 min Point Rapid) [facility] CypressAfurwkzNEVCNJKDHP0309-91-48 09:30:00 Test Item Value Reference Range Interpretation Comments R-time Rapid (test code = R-time 0.4 min 0.4-0.7 Rapid) [facility] CypressLzgwgkwSFPWDSYTSD1478-41-86 09:30:00 Test Item Value Reference Range Interpretation Comments K-time Rapid (test code = K-time 1.4 min 0.6-2.3 Rapid) [facility] CypressUckxetdJHTVUBUYCF2289-37-07 09:30:00 Test Item Value Reference Range Interpretation Comments Angle Rapid (test code = Angle 75 degrees 64-80 Rapid) [facility] CypressRdogbrxRSLVVTHBVY6889-47-91 09:30:00 Test Item Value Reference Range Interpretation Comments Max Amplitude Rapid (test code = Max 63 mm 52-71 Amplitude Rapid) [facility] CypressYqohuszGVTJPHSFKA9710-19-79 09:30:00 Test Item Value Reference Range Interpretation Comments G-value Rapid (test code = G-value 8.6 5.0-11.6 Rapid) [facility] CypressSoeizzmAYMTZUJPMU4159-28-20 09:30:00 Test Item Value Reference Range Interpretation Comments Estimated % Lysis Rapid 0.3 See_Comment [Au tomated message] The (test code = Estimated syste m which generated % Lysis Rapid) this result t ransmitted reference range : <=7.5. The reference r abdifatah was not used to int erpret this result as normal/abnormal . [facility] CenterGefxqawPOHTSSAKKS4668-38-31 09:30:00 Test Item Value Reference Range Interpretation Comments C-REACTIVE PROTEIN (test code = no gt C-REACTIVE PROTEIN) [facility] ELMGWWT1530-06-65 09:30:00 Test Item Value Reference Range Interpretation Comments ABO/Rh (test code = ABO/Rh) A POS [facility] ETMNCIY1524-08-43 09:30:00 Test Item Value Reference Range Interpretation Comments Antibody Scrn (test Negative (08/16/20 4:30 code = Antibody Scrn) AM) [facility] CenterCHEM SZJCZ7434-05-52 09:30:00 Test Item Value Reference Range Interpretation Comments Procalcitonin Lvl <0.05 ng/mL See_Comment [Automate d message] (test code = The system whic h Procalcitonin Lvl) generated this result transmit gill reference range : <=0.10. The reference range was not used to interpret this result as normal/abnormal . [facility] CypressWpvisnfGTBPLPTNWF6282-78-71 09:30:00 Test Item Value Reference Range Interpretation Comments Sed Rate (test code = 3 See_Comment [Auto mated message] The Sed Rate) system which ge nerated this result transmit gill reference range : <=20. The reference range was not used to interpr et this result as len l/abnormal. [facility] CypressMbiyaiaNGACJEQAAU8896-05-69 09:30:00 Test Item Value Reference Range Interpretation Comments ACT (TEG) Rapid (test code = ACT (TEG) 89 s 86-118 Rapid) [place] 052861-04-21 09:30:00 Test Item Value Reference Range Interpretation Comments Split Point Rapid (test code = Split 0.3 min Point Rapid) [place] [address]-04-21 09:30:00 Test Item Value Reference Range Interpretation Comments R-time Rapid (test code = R-time 0.4 min 0.4-0.7 Rapid) [place] [address]-04-21 09:30:00 Test Item Value Reference Range Interpretation Comments K-time Rapid (test code = K-time 1.4 min 0.6-2.3 Rapid) [address]04-21 09:30:00 Test Item Value Reference Range Interpretation Comments Angle Rapid (test code = Angle 75 degrees 64-80 Rapid) [place] [address]-04-21 09:30:00 Test Item Value Reference Range Interpretation Comments Max Amplitude Rapid (test code = Max 63 mm 52-71 Amplitude Rapid) [place] 052861-04-21 09:30:00 Test Item Value Reference Range Interpretation Comments G-value Rapid (test code = G-value 8.6 5.0-11.6 Rapid) [place] 052861-04-21 09:30:00 Test Item Value Reference Range Interpretation Comments Estimated % Lysis Rapid 0.3 See_Comment [Au tomated message] The (test code = Estimated syste m which generated % Lysis Rapid) this result t ransmitted reference range : <=7.5. The reference r abdifatah was not used to int erpret this result as normal/abnormal . [place] 694271-04-21 09:30:00 Test Item Value Reference Range Interpretation Comments C-REACTIVE PROTEIN (test code = no gt C-REACTIVE PROTEIN) [place] [address]-04-21 08:43:00 Test Item Value Reference Range Interpretation Comments Coronavirus (COVID-19) Not Detected (08/16/20 KASSY (test code = 3:43 AM) Coronavirus (COVID-19) KASSY) [place] 694271-04-21 08:43:00 Test Item Value Reference Range Interpretation Comments Coronavirus (COVID-19) Not Detected (08/16/20 KASSY (test code = 3:43 AM) Coronavirus (COVID-19) KASSY) [facility] AND NZJXM7352-48-03 08:20:45 Test Item Value Reference Range Interpretation Comments UA Color (test code = Yellow *NA*(08/16/20 UA Color) 3:20 AM) [facility] AND [id number] 08:20:45 Test Item Value Reference Range Interpretation Comments UA Turbidity (test code Slight *ABN*(08/16/20 = UA Turbidity) 3:20 AM) [facility] AND [id number] 08:20:45 Test Item Value Reference Range Interpretation Comments UA Spec Grav (test code = UA Spec 1.019 1 Grav) [facility] AND [id number] 08:20:45 Test Item Value Reference Range Interpretation Comments UA pH (test code = UA pH) 6.0 1 5.0-8.0 [facility] AND [id number] 08:20:45 Test Item Value Reference Range Interpretation Comments UA Protein (test code = UA Negative mg/dL Protein) [facility] AND [id number] 08:20:45 Test Item Value Reference Range Interpretation Comments UA Glucose (test code = UA Negative mg/dL Glucose) [facility] AND [id number] 08:20:45 Test Item Value Reference Range Interpretation Comments UA Ketones (test code = UA Trace mg/dL Ketones) [facility] AND [id number] 08:20:45 Test Item Value Reference Range Interpretation Comments UA Bili (test code = Negative *NA*(08/16/20 UA Bili) 3:20 AM) [facility] AND [id number] 08:20:45 Test Item Value Reference Range Interpretation Comments UA Blood (test code = Negative (08/16/20 3:20 UA Blood) AM) [facility] AND [id number] 08:20:45 Test Item Value Reference Range Interpretation Comments UA Urobilinogen (test code = UA no gt 0.1-1.0 Urobilinogen) [facility] AND [id number] 08:20:45 Test Item Value Reference Range Interpretation Comments UA Nitrite (test code Negative (08/16/20 3:20 = [facility] Nitrite) AM) [facility] [id number] 08:20:45 Test Item Value Reference Range Interpretation Comments UA Leuk Est (test Moderate *ABN*(08/16/20 code = UA Leuk Est) 3:20 AM) [facility] [id number] 08:20:45 Test Item Value Reference Range Interpretation Comments UA Sq Epi (test code = UA Sq Moderate /LPF Epi) [facility] [id number] 08:20:45 Test Item Value Reference Range Interpretation Comments UA WBC (test code = 26 See_Comment [Automa gill message] The UA WBC) system which ge nerated this result transmit gill reference range : <=5. The reference range was not used to interpr et this result as len l/abnormal. [facility] [id number] 08:20:45 Test Item Value Reference Range Interpretation Comments UA RBC (test code = 10 See_Comment [Automa gill message] The UA RBC) system which ge nerated this result transmit gill reference range : <=2. The reference range was not used to interpr et this result as len l/abnormal. [facility] [id number] 08:20:45 Test Item Value Reference Range Interpretation Comments UA Bacteria (test code = UA Occasional /HPF Bacteria) [facility] [id number] 08:20:45 Test Item Value Reference Range Interpretation Comments UA Mucus (test code = UA Mucus) Few /LPF [facility] [id number] 08:20:45 Test Item Value Reference Range Interpretation Comments UA Color (test code = Yellow *NA*(08/16/20 UA Color) 3:20 AM) [facility] [id number] 08:20:45 Test Item Value Reference Range Interpretation Comments UA Turbidity (test code Slight *ABN*(08/16/20 = UA Turbidity) 3:20 AM) [facility] [id number] 08:20:45 Test Item Value Reference Range Interpretation Comments UA Spec Grav (test code = UA Spec 1.019 1 Grav) [facility] [id number] 08:20:45 Test Item Value Reference Range Interpretation Comments UA pH (test code = UA pH) 6.0 1 5.0-8.0 [facility] AND [id number] 08:20:45 Test Item Value Reference Range Interpretation Comments UA Protein (test code = UA Negative mg/dL Protein) [facility] AND [id number] 08:20:45 Test Item Value Reference Range Interpretation Comments UA Glucose (test code = UA Negative mg/dL Glucose) [facility] AND [id number] 08:20:45 Test Item Value Reference Range Interpretation Comments UA Ketones (test code = UA Trace mg/dL Ketones) [facility] AND [id number] 08:20:45 Test Item Value Reference Range Interpretation Comments UA Bili (test code = Negative *NA*(08/16/20 UA Bili) 3:20 AM) [facility] AND [id number] 08:20:45 Test Item Value Reference Range Interpretation Comments UA Blood (test code = Negative (08/16/20 3:20 UA Blood) AM) [facility] AND [id number] 08:20:45 Test Item Value Reference Range Interpretation Comments UA Urobilinogen (test code = UA no gt 0.1-1.0 Urobilinogen) [facility] AND [id number] 08:20:45 Test Item Value Reference Range Interpretation Comments UA Nitrite (test code Negative (08/16/20 3:20 = UA Nitrite) AM) [facility] AND [id number] 08:20:45 Test Item Value Reference Range Interpretation Comments UA Leuk Est (test Moderate *ABN*(08/16/20 code = UA Leuk Est) 3:20 AM) [facility] AND [id number] 08:20:45 Test Item Value Reference Range Interpretation Comments UA Sq Epi (test code = UA Sq Moderate /LPF Epi) [facility] AND [id number] 08:20:45 Test Item Value Reference Range Interpretation Comments UA WBC (test code = 26 See_Comment [Automa gill message] The UA WBC) system which ge nerated this result transmit gill reference range : <=5. The reference range was not used to interpr et this result as len l/abnormal. [facility] AND [id number] 08:20:45 Test Item Value Reference Range Interpretation Comments UA RBC (test code = 10 See_Comment [Automa gill message] The UA RBC) system which ge nerated this result transmit gill reference range : <=2. The reference range was not used to interpr et this result as len l/abnormal. [facility] AND [id number] 08:20:45 Test Item Value Reference Range Interpretation Comments UA Bacteria (test code = UA Occasional /HPF Bacteria) [facility] AND [id number] 08:20:45 Test Item Value Reference Range Interpretation Comments UA Mucus (test code = UA Mucus) Few /LPF [facility]2021-04-21 08:00:39 Test Item Value Reference Range Interpretation Comments Lactic Acid Lvl (test code = Lactic 1.7 0.5-2.2 Acid Lvl) [facility]2021-04-21 08:00:39 Test Item Value Reference Range Interpretation Comments Lactic Acid Lvl (test code = Lactic 1.7 0.5-2.2 Acid Lvl) [facility]JRNGVXDMCU2428-94-[facility] 07:07:00 Test Item Value Reference Range Interpretation Comments Hep C Ab (test code = Hep C Ab) NON-REACTIVE [facility] CenterAwtxvrrKPKXTEMEOC4605-19-60 07:07:00 Test Item Value Reference Range Interpretation Comments Hep Signal to Cut-Off (test code = Hep 0.19 1 Signal to Cut-Off) [facility] 07:07:00 Test Item Value Reference Range Interpretation Comments [facility] HIV 4th GEN (test Negative *NA*(08/16/20 code = CDC HIV 4th 2:07 AM) GEN) [facility] CenterXenewfnYKAGGBBNCO1067-32-61 07:07:00 Test Item Value Reference Range Interpretation Comments Hep C Ab (test code = Hep C Ab) [facility]-REACTIVE [facility] CenterLgejohuUMGNQARRFU3299-31-53 07:07:00 Test Item Value Reference Range Interpretation Comments Hep Signal to Cut-Off (test code = Hep 0.19 1 Signal to Cut-Off) [facility]LfsqcdrKTNQUINYTS5909-79-30 07:07:00 Test Item Value Reference Range Interpretation Comments [facility] HIV 4th GEN (test Negative *NA*(08/16/20 code = CDC HIV 4th 2:07 AM) GEN) [facility]2021-04-20 22:26:00 Test Item Value Reference Range Interpretation Comments Glucose Lvl (test code = Glucose Lvl) 84 70-99 [facility]2021-04-20 22:26:00 Test Item Value Reference Range Interpretation Comments BUN (test code = BUN) 26 7-22 [place] 878481-04-20 22:26:00 Test Item Value Reference Range Interpretation Comments Creatinine Lvl (test code = Creatinine 0.60 0.50-1.40 Lvl) [place] 878481-04-20 22:26:00 Test Item Value Reference Range Interpretation Comments Sodium Lvl (test code = Sodium Lvl) 143 135-145 [facility]2021-04-20 22:26:00 Test Item Value Reference Range Interpretation Comments Potassium Lvl (test code = Potassium 4.3 3.5-5.1 Lvl) [facility]2021-04-20 22:26:00 Test Item Value Reference Range Interpretation Comments Chloride Lvl (test code = Chloride Lvl) 111 95-109 [facility]2021-04-20 22:26:00 Test Item Value Reference Range Interpretation Comments CO2 (test code = CO2) 30 24-32 [facility]2021-04-20 22:26:00 Test Item Value Reference Range Interpretation Comments Calcium Lvl (test code = Calcium Lvl) 9.6 8.5-10.5 [facility]2021-04-20 22:26:00 Test Item Value Reference Range Interpretation Comments AGAP (test code = AGAP) 6.3 10.0-20.0 [place] 878481-04-20 22:26:00 Test Item Value Reference Range Interpretation Comments eGFR (test code = eGFR) 103 [place] 052861-04-20 22:26:00 Test Item Value Reference Range Interpretation Comments WBC X 10x3 (test code = WBC X 10x3) 6.1 3.7-10.4 [place] 052861-04-20 22:26:00 Test Item Value Reference Range Interpretation Comments RBC X 10x6 (test code = RBC X 10x6) 4.49 4.20-5.40 [place] 052861-04-20 22:26:00 Test Item Value Reference Range Interpretation Comments Hgb (test code = Hgb) 14.3 12.0-16.0 [id number] 22:26:00 Test Item Value Reference Range Interpretation Comments Hct (test code = Hct) 43.1 36.0-48.0 [facility] CypressBpvuwavSPETVUMNGJ8349-08-33 22:26:00 Test Item Value Reference Range Interpretation Comments MCV (test code = MCV) 96.0 80.0-98.0 [facility] CypressIxyxmpiCJIWAYWRVZ1992-10-21 22:26:00 Test Item Value Reference Range Interpretation Comments MCH (test code = MCH) 32.0 pg 27.0-31.0 [facility] CypressGfhiymqMQPPMMBQAP2760-34-30 22:26:00 Test Item Value Reference Range Interpretation Comments MCHC (test code = MCHC) 33.3 32.0-36.0 [facility] CypressAjwxggsGLYKSKNJTZ6001-97-24 22:26:00 Test Item Value Reference Range Interpretation Comments RDW (test code = RDW) 13.2 11.5-14.5 [facility] CypressYkoxgesWKQSOCPRTH5946-62-55 22:26:00 Test Item Value Reference Range Interpretation Comments Platelet (test code = Platelet) 230 133-450 [facility] CypressDlgohqoKPYVJZPNFB1263-97-56 22:26:00 Test Item Value Reference Range Interpretation Comments MPV (test code = MPV) 8.4 7.4-10.4 [facility] CypressNcmtiyhHBWORYGIYN9351-02-50 22:26:00 Test Item Value Reference Range Interpretation Comments Segs (test code = Segs) 50.7 45.0-75.0 [facility] CypressEjagpxeXAMCNLJPBQ0623-80-95 22:26:00 Test Item Value Reference Range Interpretation Comments Lymphocytes (test code = Lymphocytes) 36.2 20.0-40.0 [facility] CypressYoqzbokGNNRHUNOGC3832-59-14 22:26:00 Test Item Value Reference Range Interpretation Comments Monocytes (test code = Monocytes) 10.3 2.0-12.0 [facility] CypressAcertndRCQFLJXQQS5972-50-65 22:26:00 Test Item Value Reference Range Interpretation Comments Eosinophils (test code = 2.1 See_Comment [A utomated message] The Eosinophils) system which ge nerated this result tra nsmitted reference range : <=4.0. The reference r abdifatah was not used to int erpret this result as normal/abnormal . [place] 052861-04-20 22:26:00 Test Item Value Reference Range Interpretation Comments Basophils (test code = 0.7 See_Comment [Aut omated message] The Basophils) system which ge nerated this result tra nsmitted reference range : <=1.0. The reference r abdifatah was not used to int erpret this result as normal/abnormal . [place] 052861-04-20 22:26:00 Test Item Value Reference Range Interpretation Comments Neutrophils # (test code = Neutrophils 3.1 1.5-8.1 #) [place] 052861-04-20 22:26:00 Test Item Value Reference Range Interpretation Comments Lymphocytes # (test code = Lymphocytes 2.2 1.0-5.5 #) [place] 052861-04-20 22:26:00 Test Item Value Reference Range Interpretation Comments Monocytes # (test code 0.6 See_Comment [Aut omated message] The = Monocytes #) system which generated this result tra nsmitted reference range : <=0.8. The reference r abdifatah was not used to int erpret this result as normal/abnormal . [place] 052861-04-20 22:26:00 Test Item Value Reference Range Interpretation Comments Eosinophils # (test code 0.1 See_Comment [A utomated message] The = Eosinophils #) system whic h generated this result tra nsmitted reference range : <=0.5. The reference r abdifatah was not used to int erpret this result as normal/abnormal . [facility]2021-04-20 22:26:00 Test Item Value Reference Range Interpretation Comments Glucose Lvl (test code = Glucose Lvl) 84 70-99 [facility] [id number] 22:26:00 Test Item Value Reference Range Interpretation Comments BUN (test code = BUN) 26 7-22 [facility] [id number] 22:26:00 Test Item Value Reference Range Interpretation Comments Creatinine Lvl (test code = Creatinine 0.60 0.50-1.40 Lvl) [place] 878481-04-20 22:26:00 Test Item Value Reference Range Interpretation Comments Sodium Lvl (test code = Sodium Lvl) 143 135-145 [facility] [id number] 22:26:00 Test Item Value Reference Range Interpretation Comments Potassium Lvl (test code = Potassium 4.3 3.5-5.1 Lvl) [place] 878481-04-20 22:26:00 Test Item Value Reference Range Interpretation Comments Chloride Lvl (test code = Chloride Lvl) 111 95-109 [place] 878481-04-20 22:26:00 Test Item Value Reference Range Interpretation Comments CO2 (test code = CO2) 30 24-32 [place] 878481-04-20 22:26:00 Test Item Value Reference Range Interpretation Comments Calcium Lvl (test code = Calcium Lvl) 9.6 8.5-10.5 [place] 878481-04-20 22:26:00 Test Item Value Reference Range Interpretation Comments AGAP (test code = AGAP) 6.3 10.0-20.0 [place] 878481-04-20 22:26:00 Test Item Value Reference Range Interpretation Comments eGFR (test code = eGFR) 103 [place] 052861-04-20 22:26:00 Test Item Value Reference Range Interpretation Comments WBC X 10x3 (test code = WBC X 10x3) 6.1 3.7-10.4 [place] 052861-04-20 22:26:00 Test Item Value Reference Range Interpretation Comments RBC X 10x6 (test code = RBC X 10x6) 4.49 4.20-5.40 [place] 052861-04-20 22:26:00 Test Item Value Reference Range Interpretation Comments Hgb (test code = Hgb) 14.3 12.0-16.0 [place] [address]-04-20 22:26:00 Test Item Value Reference Range Interpretation Comments Hct (test code = Hct) 43.1 36.0-48.0 [place] [address]-04-20 22:26:00 Test Item Value Reference Range Interpretation Comments MCV (test code = MCV) 96.0 80.0-98.0 [place] [address]-04-20 22:26:00 Test Item Value Reference Range Interpretation Comments MCH (test code = MCH) 32.0 pg 27.0-31.0 [place] 052861-04-20 22:26:00 Test Item Value Reference Range Interpretation Comments MCHC (test code = MCHC) 33.3 32.0-36.0 [facility] CypressAagjdwtPAZFGZHQIQ5382-48-83 22:26:00 Test Item Value Reference Range Interpretation Comments RDW (test code = RDW) 13.2 11.5-14.5 [facility] CypressLxvkdbvVNZXIQNTWP4550-56-44 22:26:00 Test Item Value Reference Range Interpretation Comments Platelet (test code = Platelet) 230 133-450 [facility] CypressQsczlflVFUGBONJKY6371-57-79 22:26:00 Test Item Value Reference Range Interpretation Comments MPV (test code = MPV) 8.4 7.4-10.4 [facility] CypressDjkgsuxFPOKWEFDGM2539-86-78 22:26:00 Test Item Value Reference Range Interpretation Comments Segs (test code = Segs) 50.7 45.0-75.0 [place] 052861-04-20 22:26:00 Test Item Value Reference Range Interpretation Comments Lymphocytes (test code = Lymphocytes) 36.2 20.0-40.0 [facility] CypressPagktouTKDYGRJFHP6230-00-91 22:26:00 Test Item Value Reference Range Interpretation Comments Monocytes (test code = Monocytes) 10.3 2.0-12.0 [facility] CypressRxnvslhRKXDMCLCIC8169-67-69 22:26:00 Test Item Value Reference Range Interpretation Comments Eosinophils (test code = 2.1 See_Comment [A utomated message] The Eosinophils) system which ge nerated this result tra nsmitted reference range : <=4.0. The reference r abdifatah was not used to int erpret this result as normal/abnormal . [facility] CypressUxblvesSPKFPJUBEX4238-01-73 22:26:00 Test Item Value Reference Range Interpretation Comments Basophils (test code = 0.7 See_Comment [Aut omated message] The Basophils) system which ge nerated this result tra nsmitted reference range : <=1.0. The reference r abdifatah was not used to int erpret this result as normal/abnormal . [facility] CypressZuypeesFOCJCYCHQP7434-22-38 22:26:00 Test Item Value Reference Range Interpretation Comments Neutrophils # (test code = Neutrophils 3.1 1.5-8.1 #) [facility] CypressAdshovoDJIFAMKKKX5044-15-60 22:26:00 Test Item Value Reference Range Interpretation Comments Lymphocytes # (test code = Lymphocytes 2.2 1.0-5.5 #) [place] 052861-04-20 22:26:00 Test Item Value Reference Range Interpretation Comments Monocytes # (test code 0.6 See_Comment [Aut omated message] The = Monocytes #) system which generated this result tra nsmitted reference range : <=0.8. The reference r abdifatah was not used to int erpret this result as normal/abnormal . [facility] CypressGksvljgPCWRXTYHCW9963-13-96 22:26:00 Test Item Value Reference Range Interpretation Comments Eosinophils # (test code 0.1 See_Comment [A utomated message] The = Eosinophils #) system whic h generated this result tra nsmitted reference range : <=0.5. The reference r abdifatah was not used to int erpret this result as normal/abnormal . [facility] Anticoagulant Screen with Reflex To Xdqfixwsadaa6908-19-19 17:47:00 Test Item Value Reference Interpretation Comments [...] INR (test code = 0.98 See_Comment [Automated 2111-6) message] The system which generated this result transmitted reference range : <=5.90. The reference range was not used to interpret this result as normal/abnormal . PTT (test code = 30.9 See_Comment [Automated 70559-3) message] The system which generated this result transmitted reference range : 22.5 - 36.0 seconds. The reference range was not used to interpret this result as normal/abnormal . PTT-LA (test code = 35.7 32.0-41.8 37704-9) Pathologist: (magalys Christiansen M.D. code = 2610) (electonic signature) [facility] with Reflex To Pfekxglbvzph6129-12-17 17:47:00 Test Item Value Reference Interpretation Comments [...] PTT (test code = 30.9 See_Comment [Automated 83407-0) message] The system which generated this result transmitted reference range : 22.5 - 36.0 seconds. The reference range was not used to interpret this result as normal/abnormal . PTT-LA (test code = 35.7 32.0-41.8 71222-0) Pathologist: (magalys Christiansen M.D. code = 2610) (electonic signature) [facility] Anticoagulant Screen with Reflex To Zcqcmimekggc3418-63-18 17:47:00 Test Item Value Reference Interpretation Comments [...] PTT (test code = 30.9 See_Comment [Automated 58071-2) message] The system which generated this result transmitted reference range : 22.5 - 36.0 seconds. The reference range was not used to interpret this result as normal/abnormal . PTT-LA (test code = 35.7 32.0-41.8 99617-5) Pathologist: (magalys Christiansen M.D. code = 2610) (electonic signature) [facility] An[facility] Screen with Reflex To Prxasrcblkry9983-07-11 17:47:00 Test Item Value Reference Interpretation Comments [...] PTT (test code = 30.9 See_Comment [Automated 93047-4) message] The system which generated this result transmitted reference range : 22.5 - 36.0 seconds. The reference range was not used to interpret this result as normal/abnormal . PTT-LA (test code = 35.7 32.0-41.8 40870-2) Pathologist: (magalys Christiansen M.D. code = 2610) (electonic signature) [facility] Screen with Reflex To Bqqpxepfvgqi2217-11-20 17:47:00 Test Item Value Reference Interpretation Comments [...] PTT (test code = 30.9 See_Comment [Automated 51751-5) message] The system which generated this result transmitted reference range : 22.5 - 36.0 seconds. The reference range was not used to interpret this result as normal/abnormal . PTT-LA (test code = 35.7 32.0-41.8 62411-8) Pathologist: (test Deacon Christiansen M.D. code = 2610) (electonic signature) [facility] Screen with Reflex To Bzgfttefcsza5497-55-13 17:47:00 Test Item Value Reference Interpretation Comments [...] INR (test code = 0.98 See_Comment [Automated 2431-6) message] The system which generated this result transmitted reference range : <=5.90. The reference range was not used to interpret this result as normal/abnormal . PTT (test code = 30.9 See_Comment [Automated 96715-2) message] The system which generated this result transmitted reference range : 22.5 - 36.0 seconds. The reference range was not used to interpret this result as normal/abnormal . PTT-LA (test code = 35.7 32.0-41.8 26718-9) Pathologist: (test Deacon Christiansen M.D. code = 2610) (electonic signature) [facility] ANTICOAGULANT SCREEN WITH REFLEX TO [id number] 17:47:00 Test Item Value Reference Range Interpretation [...] PTT-LA (BEAKER) (test 35.7 32.0-41.8 code = 8420732399) [id number] Deacon Christiansen M.D. (BEAKER) (test code = (electonic signature) 2610) Twpi-4-Pmenxmsbuyhx I [id number] 14:42:00 Test Item Value Reference Range Interpretation Comments Beta-2 Glycoprotein <9 See_Comment [Automa gill I Ab, IgG (test message] The code = 80650-1) system which generated this result transmitted reference range : < OR = 20 SGU. The reference range was not used to interpr et this result as normal/abnormal . AYESHA (test code = Performing Lab EZ AYESHA) [facility] [address] [place] [address] Dawson Portillo MD, PhD, [facility] CenterBeta-2-Glycoprotein I [id number] 14:42:00 Test Item Value Reference Range Interpretation Comments Beta-2 Glycoprotein <9 See_Comment [Automa gill I Ab, IgM (test message] The code = 36135-1) system which generated this result transmitted reference range : < OR = 20 SMU. The reference range was not used to interpr et this result as normal/abnormal . AYESHA (test code = Performing Lab EZ AYESHA) [facility] [address] [place] [address] Dawson Portillo MD, PhD, [facility] CenterBeta-2-Glycoprotein I [id number] 14:42:00 Test Item Value Reference Interpretation Comments Range Beta-2 <9 See_Comment The antiphospho lipid antibody Glycoprotein I syndrome (APS ) lisa Ab, IgA (test clinical-patho logic code = 19265-9) correlation that includesa clinical event (e.g. thrombosis, pre gnancyloss, thrombocytopeni a) and persistent positiveantipho spholipid antibodies (IgM or IgG CARTER>40 MPL/GPL,IgM or IgG anti-b2GPI antibodies ora lupus anticoagulant). International consensusguidel zara for APS suggest waiting at least 12weeks before retesting to confirm antibod ypersistence. The [facility] llaborating [facility] immunologicalcl assification criteria for [facility] lupuserythemato renetta (SLE) include testing for isotypeIgA, whi ch has yet to be incorporated into APScriteria. Lo w level antiphospholipi d antibodiesmay s ometimes be detected in the setting ofinfection, dr ug therapy or aging. [Automat ed message] The system Redu.us generated this result tra nsmitted reference range : < OR = 20 NEGIN. The refere nce range was not used to int erpret this result as len l/abnormal. AYESHA (test code Performing Lab = AYESHA) EZ [facility] [address] [address] Dawson Portillo MD, PhD, [facility]eta-2-Glycoprotein I [id number] 14:42:00 Test Item Value Reference Range Interpretation Comments Beta-2 Glycoprotein <9 See_Comment [Automa gill I Ab, IgG (test message] The code = 26864-4) system which generated this result transmitted reference range : < OR = 20 SGU. The reference range was not used to interpr et this result as normal/abnormal . AYESHA (test code = Performing Lab EZ AYESHA) [facility] [id number] [place] [address] Dawson Portillo MD, PhD, [facility] CenterBeta-2-Glycoprotein I [id number] 14:42:00 Test Item Value Reference Range Interpretation Comments Beta-2 Glycoprotein <9 See_Comment [Automa gill I Ab, IgM (test message] The code = 19735-2) system which generated this result transmitted reference range : < OR = 20 SMU. The reference range was not used to interpr et this result as normal/abnormal . AYESHA (test code = Performing Lab EZ AYESHA) [facility] [address] Dawson Portillo MD, PhD, [facility] Center[facility]eta-[facility]-Glycoprotein I [id number] 14:42:00 Test Item Value Reference Interpretation Comments Range Beta-2 <9 See_Comment The antiphospho lipid antibody Glycoprotein I syndrome (APS ) lisa Ab, IgA (test clinical-patho logic code = 99536-6) correlation that includesa clinical event (e.g. thrombosis, pre gnancyloss, thrombocytopeni a) and persistent positiveantipho spholipid antibodies (IgM or IgG CARTER>40 MPL/GPL,IgM or IgG anti-b2GPI antibodies ora lupus anticoagulant). International consensusguidel zara for APS suggest waiting at least 12weeks before retesting to confirm antibod ypersistence. [facility] immunologicalcl assification criteria for [facility] lupuserythemato renetta (SLE) include testing for isotypeIgA, [...] (test code Performing Lab = AYESHA) EZ [facility] [address] [place] [address] Dawson Portillo MD, PhD, [facility] CenterBeta-2-Glycoprotein I [id number] 14:42:00 Test Item Value Reference Range Interpretation Comments Beta-2 Glycoprotein <9 See_Comment [Automa gill I Ab, IgG (test message] The code = 69507-6) system which generated this result transmitted reference range : < OR = 20 SGU. The reference range was not used to interpr et this result as normal/abnormal . AYESHA (test code = Performing Lab EZ AEYSHA) [facility] [address] [place] [address] Dawson Portillo MD, PhD, [facility] CenterBeta-2-Glycoprotein I [id number] 14:42:00 Test Item Value Reference Range Interpretation Comments Beta-2 Glycoprotein <9 See_Comment [Automa gill I Ab, IgM (test message] The code = 13257-4) system which generated this result transmitted reference range : < OR = 20 SMU. The reference range was not used to interpr et this result as normal/abnormal . AYESHA (test code = Performing Lab EZ AYESHA) [facility] [address] [place] [address] Dawson Portillo MD, PhD, [facility] CenterBeta-2-Glycoprotein I [id number] 14:42:00 Test Item Value Reference Interpretation Comments Range Beta-2 <9 See_Comment The antiphospho lipid antibody Glycoprotein I syndrome (APS ) lisa Ab, IgA (test clinical-patho logic code = 23235-8) correlation that includesa clinical event (e.g. thrombosis, pre gnancyloss, thrombocytopeni a) and persistent positiveantipho spholipid antibodies (IgM or IgG CARTER>40 MPL/GPL,IgM or IgG anti-b2GPI antibodies ora lupus anticoagulant). International consensusguidel zara for APS suggest waiting at least 12weeks before retesting to confirm antibod ypersistence. The [facility] llaborating [facility] immunologicalcl assification criteria for [facility] lupuserythemato renetta (SLE) include testing for isotypeIgA, whi ch has yet to be incorporated into APScriteria. Lo w level antiphospholipi d antibodiesmay s ometimes be detected in the setting ofinfection, dr ug therapy or aging. [Automat ed message] The system Redu.us generated this result tra nsmitted reference range : < OR = 20 NEGIN. The refere nce range was not used to int erpret this result as len l/abnormal. AYESHA (test code Performing Lab = AYESHA) EZ [facility] [address] [place] [address] Dawson Portillo MD, PhD, [facility]Gly[facility] I [id number] 14:42:00 Test Item Value Reference Range Interpretation Comments Beta-2 Glycoprotein <9 See_Comment [Automa gill I Ab, IgG (test message] The code = 74468-9) system which generated this result transmitted reference range : < OR = 20 SGU. The reference range was not used to interpr et this result as normal/abnormal . AYESHA (test code = Performing Lab EZ AYESHA) [facility] [address] [place] [address] Dawson Portillo MD, PhD, [facility] JosephBeta-2-Glycoprotein I [id number] 14:42:00 Test Item Value Reference Range Interpretation Comments Beta-2 Glycoprotein <9 See_Comment [Automa gill I Ab, IgM (test message] The code = 08590-8) system which generated this result transmitted reference range : < OR = 20 SMU. The reference range was not used to interpr et this result as normal/abnormal . AYESHA (test code = Performing Lab EZ AYESHA) [facility] [address] [place] [address] Dawson Portillo MD, PhD, [facility]EDavies campusBeta-2-Glycoprotein I [id number] 14:42:00 Test Item Value Reference Interpretation Comments Range Beta-2 <9 See_Comment The antiphospho lipid antibody Glycoprotein I syndrome (APS ) lisa Ab, IgA (test clinical-patho logic code = 74728-8) correlation that includesa clinical event (e.g. thrombosis, pre gnancyloss, thrombocytopeni a) and persistent positiveantipho spholipid antibodies (IgM or IgG CARTER>40 MPL/GPL,IgM or IgG anti-b2GPI antibodies ora lupus anticoagulant). International consensusguidel zara for APS suggest waiting at least 12weeks before retesting to confirm antibod ypersistence. The [facility] llaborating [facility] immunologicalcl assification criteria for [facility] lupuserythemato renetta (SLE) include testing for isotypeIgA, whi ch has yet to be incorporated into APScriteria. Lo w level antiphospholipi d antibodiesmay s ometimes be detected in the setting ofinfection, dr ug therapy or aging. [Automat ed message] The system Redu.us generated this result tra nsmitted reference range : < OR = 20 NEGIN. The refere nce range was not used to int erpret this result as len l/abnormal. AYESHA (test code Performing Lab = AYESHA) EZ [facility] [address] [place] [address] Dawson Portillo MD, PhD, [facility] JosephBeta-2-Glycoprotein I [id number] 14:42:00 Test Item Value Reference Range Interpretation Comments Beta-2 Glycoprotein <9 See_Comment [Automa gill I Ab, IgG (test message] The code = 60179-1) system which generated this result transmitted reference range : < OR = 20 SGU. The reference range was not used to interpr et this result as normal/abnormal . AYESHA (test code = Performing Lab EZ AYESHA) [facility] [address] [place] [address] Dawson Portillo MD, PhD, [facility]EDavies campusBeta-2-Glycoprotein I [id number] 14:42:00 Test Item Value Reference Range Interpretation Comments Beta-2 Glycoprotein <9 See_Comment [Automa gill I Ab, IgM (test message] The code = 31046-6) system which generated this result transmitted reference range : < OR = 20 SMU. The reference range was not used to interpr et this result as normal/abnormal . AYESHA (test code = Performing Lab EZ AYESHA) [facility] [address] [place] [address] Dawson Portillo MD, PhD, [facility] campusBeta-2-Glycoprotein I [id number] 14:42:00 Test Item Value Reference Interpretation Comments Range Beta-2 <9 See_Comment The antiphospho lipid antibody Glycoprotein I syndrome (APS ) lisa Ab, IgA (test clinical-patho logic code = 96686-2) correlation that includesa clinical event (e.g. thrombosis, pre gnancyloss, thrombocytopeni a) and persistent positiveantipho spholipid antibodies (IgM or IgG CARTER>40 MPL/GPL,IgM or IgG anti-b2GPI antibodies ora lupus anticoagulant). International consensusguidel zara for APS suggest waiting at least 12weeks before retesting to confirm antibod ypersistence. The [facility] immunologicalcl assification criteria for [facility] lupuserythemato renetta (SLE) include testing for isotypeIgA, [...] (test code Performing Lab = AYESHA) EZ [facility] [address] [place] [address] Dawson Portillo MD, PhD, [facility] JosephBeta-2-Glycoprotein I [id number] 14:42:00 Test Item Value Reference Range Interpretation Comments Beta-2 Glycoprotein <9 See_Comment [Automa gill I Ab, IgG (test message] The code = 37099-0) system which generated this result transmitted reference range : < OR = 20 SGU. The reference range was not used to interpr et this result as normal/abnormal . AYESHA (test code = Performing Lab EZ AYESHA) [facility] [address] [place] [address] Dawson Portillo MD, PhD, [facility] CenterBeta-2-Glycoprotein I [id number] 14:42:00 Test Item Value Reference Range Interpretation Comments Beta-2 Glycoprotein <9 See_Comment [Automa gill I Ab, IgM (test message] The code = 32955-2) system which generated this result transmitted reference range : < OR = 20 SMU. The reference range was not used to interpr et this result as normal/abnormal . AYESHA (test code = Performing Lab EZ AYESHA) [facility] [address] [place] [address] Dawson Portillo MD, PhD, [facility] CenterBeta-2-Glycoprotein I [id number] 14:42:00 Test Item Value Reference Interpretation Comments Range Beta-2 <9 See_Comment The antiphospho lipid antibody Glycoprotein I syndrome (APS ) lisa Ab, IgA (test clinical-patho logic code = 97479-7) correlation that includesa clinical event (e.g. thrombosis, pre gnancyloss, thrombocytopeni a) and persistent positiveantipho spholipid antibodies (IgM or IgG CARTER>40 MPL/GPL,IgM or IgG anti-b2GPI antibodies ora lupus anticoagulant). International consensusguidel zara for APS suggest waiting at least 12weeks before retesting to confirm antibod ypersistence. [facility] immunologicalcl assification criteria for [facility] lupuserythemato renetta (SLE) include testing for isotypeIgA, [...] (test code Performing Lab = AYESHA) EZ [facility] [address] [place] [address] Dawson Portillo MD, PhD, [facility] JosephBeta-2 glycoprotein [id number] 13:01:00 Test Item Value Reference Range Interpretation Comments B2 Glcoprotein Ab Refer to individual Profile (test code = B2-Glycoprotein IgG, 2557) IgM and IgA results. [facility]Beta-2 glycoprotein [id number] 13:01:00 Test Item Value Reference Range Interpretation Comments B2 Glcoprotein Ab Refer to individual Profile (test code = B2-Glycoprotein IgG, 2557) IgM and IgA results. [facility] JosephBeta-2 glycoprotein [id number] 13:01:00 Test Item Value Reference Range Interpretation Comments B2 Glcoprotein Ab Refer to individual Profile (test code = B2-Glycoprotein IgG, 2557) IgM and IgA results. [facility] JosephBeta-2 glycoprotein [id number] 13:01:00 Test Item Value Reference Range Interpretation Comments B2 Glcoprotein Ab Refer to individual Profile (test code = B2-Glycoprotein IgG, 2557) IgM and IgA results. [facility] JosephBeta-2 glycoprotein [id number] 13:01:00 Test Item Value Reference Range Interpretation Comments B2 Glcoprotein Ab Refer to individual Profile (test code = B2-Glycoprotein IgG, 2557) IgM and IgA results. [facility] JosephBeta-2 glycoprotein [id number] 13:01:00 Test Item Value Reference Range Interpretation Comments B2 Glcoprotein Ab Refer to individual Profile (test code = B2-Glycoprotein IgG, 2557) IgM and IgA results. [facility] JosephValproic acid level, [id number] 10:52:00 Test Item Value Reference Range Interpretation Comments Valproic Acid, Total 86 ug/mL 50-100 (test code = 4086-5) AYESHA (test code = AYESHA) Therapeutic range for some clinical conditions may be >100 ug/mL Lab Interpretation (test Normal code = 78751-8) [facility] JosephValproic acid level, [id number] 10:52:00 Test Item Value Reference Range Interpretation Comments Valproic Acid, Total 86 ug/mL 50-100 (test code = 4086-5) AYESHA (test code = AYESHA) Therapeutic range for some clinical conditions may be >100 ug/mL Lab Interpretation (test Normal code = 93855-2) [facility] JosephValproic acid level, [id number] 10:52:00 Test Item Value Reference Range Interpretation Comments Valproic Acid, Total 86 ug/mL 50-100 (test code = 4086-5) AYESHA (test code = AYESHA) Therapeutic range for some clinical conditions may be >100 ug/mL Lab Interpretation (test Normal code = 38541-0) [facility] JosephValproic acid level, [id number] 10:52:00 Test Item Value Reference Range Interpretation Comments Valproic Acid, Total 86 ug/mL 50-100 (test code = 4086-5) AYESHA (test code = AYESHA) Therapeutic range for some clinical conditions may be >100 ug/mL Lab Interpretation (test Normal code = 95392-5) [facility] JosephValproic acid level, [id number] 10:52:00 Test Item Value Reference Range Interpretation Comments Valproic Acid, Total 86 ug/mL 50-100 (test code = 4086-5) AYESHA (test code = AYESHA) Therapeutic range for some clinical conditions may be >100 ug/mL Lab Interpretation (test Normal code = 04141-8) [facility] JosephValproic acid level, [id number] 10:52:00 Test Item Value Reference Range Interpretation Comments Valproic Acid, Total 86 ug/mL 50-100 (test code = 4086-5) AYESHA (test code = AYESHA) Therapeutic range for some clinical conditions may be >100 ug/mL Lab Interpretation (test Normal code = 52850-8) [facility] JosephVALPROIC ACID LEVEL, [id number] 10:52:00 Test Item Value Reference Range Interpretation Comments VALPROIC ACID TOTAL (BEAKER) (test 86 ug/mL 50-100 code = 924) Therapeutic range for some clinical conditions may be >100 ug/mL Phosphatidylserine Abs (IgG, IgM)2020-01-09 13:03:00 Test Item Value Reference Interpretation Comments Range PHOSPHATIDYLSERINE <10 U/mL <10 Nega tive 10-20 AB(IGG) (test code = Equivoc al- Found in small 4650) percentage of t he healthy population; may be reactive >20 Positive - Risk factor for thrombosis and loss PHOSPHATIDYLSERINE <25 U/mL The antip hospholipid AB (IGM) (test code antibody syndrome (APS) lisa = ) clinical-pathol ogic correlation indio t includesa clinical event (e.g. thrombosis, pre gnancyloss, thrombocytopeni a) and persistent positiveantipho spholipid antibodies (IgM or IgG CARTER>40 MPL/GPL, IgM or IgG anti-b2GPI anti bodies ora lupus anticoagu lant). International consensusguidel zara for APS suggest waiting at least 12weeks before retesting to confirm antibod ypersistence. [facility] immunologicalcl assification criteria for [facility] lupuserythemato renetta (SLE) include testing for isotypeIgA, whi ch has yet to be incorporated into APScriteria. Lo w level antiphospholipi d antibodiesmay s ometimes be detected in the setting ofinfection, dr ug therapy or aging. <25 Neg ative 25-35 Equivocal- Foun d in small percentage of t he healthy population; may be reactive >35 Positive - Risk factor for thrombosis AYESHA (test code = Performing AYESHA) Lab E[facility] [address] [place] [address] Dawson Portillo MD, PhD, [facility] JosephPhosphatidylserine Abs (IgG, IgM)2020-01-09 13:03:00 Test Item Value Reference Interpretation Comments Range PHOSPHATIDYLSERINE <10 U/mL <10 Nega tive 10-20 AB(IGG) (test code = Equivoc al- Found in small 4650) percentage of t he healthy population; may be reactive >20 Positive - Risk factor for thrombosis and loss PHOSPHATIDYLSERINE <25 U/mL The antip hospholipid AB (IGM) (test code antibody syndrome (APS) lisa = [id number]) clinical-pathol ogic correlation indio t includesa clinical event (e.g. thrombosis, pre gnancyloss, thrombocytopeni a) and persistent positiveantipho spholipid antibodies (IgM or IgG CARTER>40 MPL/GPL, IgM or IgG anti-b2GPI anti bodies ora lupus anticoagu lant). International consensusguidel zara for APS suggest waiting at least 12weeks before retesting to confirm antibod ypersistence. The [facility] immunologicalcl assification criteria for sy stemic lupuserythemato renetta (SLE) include testing for isotypeIgA, whi ch has yet to be incorporated into APScriteria. Lo w level antiphospholipi d antibodiesmay s ometimes be detected in the setting ofinfection, dr ug therapy or aging. <25 Nega tive 25-35 Equivocal- Foun d in small percentage of the healthy population; may be reactive >35 Positive - Risk factor for thrombosis AYESHA (test code = Performing AYESHA) Lab EZ [facility] [address] [place] [address] Dawson Portillo MD, PhD, [facility] JosephPhosphatidylserine Abs (IgG, IgM)2020-01-09 13:03:00 Test Item Value Reference Interpretation Comments Range PHOSPHATIDYLSERINE <10 U/mL <10 Nega tive 10-20 AB(IGG) (test code = Equivoc al- Found in small 4650) percentage of t he healthy population; may be reactive >20 Positive - Risk factor for thrombosis and loss PHOSPHATIDYLSERINE <25 U/mL The antip hospholipid AB (IGM) (test code antibody syndrome (APS) lisa = [id number]) clinical-pathol ogic correlation indio t includesa clinical event (e.g. thrombosis, pre gnancyloss, thrombocytopeni a) and persistent positiveantipho spholipid antibodies (IgM or IgG CARTER>40 MPL/GPL, IgM or IgG anti-b2GPI anti bodies ora lupus anticoagu lant). International consensusguidel zara for APS suggest waiting at least 12weeks before retesting to confirm antibod ypersistence. The [facility] immunologicalcl assification criteria for sy stemic lupuserythemato renetta (SLE) include testing for isotypeIgA, whi ch has yet to be incorporated into APScriteria. Lo w level antiphospholipi d antibodiesmay s ometimes be detected in the setting ofinfection, dr ug therapy or aging. <25 Nega tive 25-35 Equivocal- Foun d in small percentage of t he healthy population; may be reactive >35 Positive - Risk factor for thrombosis AYESHA (test code = Performing AYESHA) Lab EZ [facility] [address] [place] [address] Dawson Portillo MD, PhD, [facility]ENTEDavies campusPhosphatidylserine Abs (IgG, IgM)2020-01-09 13:03:00 Test Item Value Reference Interpretation Comments Range PHOSPHATIDYLSERINE <10 U/mL <10 Nega tive 10-20 AB(IGG) (test code = Equivoc al- Found in small 4650) percentage of t he healthy population; may be reactive >20 Positive - Risk factor for thrombosis and loss PHOSPHATIDYLSERINE <25 U/mL The antip hospholipid AB (IGM) (test code antibody syndrome (APS) lisa = [id number]) clinical-pathol ogic correlation indio t includesa clinical event (e.g. thrombosis, pre gnancyloss, thrombocytopeni a) and persistent positiveantipho spholipid antibodies (IgM or IgG CARTER>40 MPL/GPL, IgM or IgG anti-b2GPI anti bodies ora lupus anticoagu lant). International consensusguidel zara for APS suggest waiting at least 12weeks before retesting to confirm antibod ypersistence. The [facility] llaborating Clinics immunologicalcl assification criteria for [facility] lupuserythemato renetta (SLE) include testing for isotypeIgA, whi ch has yet to be incorporated into APScriteria. Lo w level antiphospholipi d antibodiesmay s ometimes be detected in the setting ofinfection, dr ug therapy or aging. <25 Nega tive 25-35 Equivocal- Foun d in small percentage of t he healthy population; may be reactive >35 Positive - Risk factor for thrombosis AYESHA (test code = Performing AYESHA) Lab EZ [facility] [address] [place] [address] Dawson Portillo MD, PhD, [facility] JosephPhosphatidylserine Abs (IgG, IgM)2020-01-09 13:03:00 Test Item Value Reference Interpretation Comments Range PHOSPHATIDYLSERINE <10 U/mL <10 Nega tive 10-20 AB(IGG) (test code = Equivoc al- Found in small 4650) percentage of t he healthy population; may be reactive >20 Positive - Risk factor for thrombosis and loss PHOSPHATIDYLSERINE <25 U/mL The antip hospholipid AB (IGM) (test code antibody syndrome (APS) lsia = [id number]) clinical-pathol ogic correlation indio t includesa clinical event (e.g. thrombosis, pre gnancyloss, thrombocytopeni a) and persistent positiveantipho spholipid antibodies (IgM or IgG CARTER>40 MPL/GPL, IgM or IgG anti-b2GPI anti bodies ora lupus anticoagu lant). International consensusguidel zara for APS suggest waiting at least 12weeks before retesting to confirm antibod ypersistence. [facility] immunologicalcl assification criteria for [facility] lupuserythemato renetta (SLE) include testing for isotypeIgA, whi ch has yet to be incorporated into APScriteria. Lo w level antiphospholipi d antibodiesmay s ometimes be detected in the setting ofinfection, dr ug therapy or aging. <25 Nega tive 25-35 Equivocal- Foun d in small percentage of t he healthy population; may be reactive >35 Positive - Risk factor for thrombosis AYESHA (test code = Performing AYESHA) Lab E[facility] [address] [place] [address] Dawson Portillo MD, PhD, [facility] JosephPhosphatidylserine Abs (IgG, IgM)2020-01-09 13:03:00 Test Item Value Reference Interpretation Comments Range PHOSPHATIDYLSERINE <10 U/mL <10 Nega tive 10-20 AB(IGG) (test code = Equivoc al- Found in small 4650) percentage of t he healthy population; may be reactive >20 Positive - Risk factor for thrombosis and loss PHOSPHATIDYLSERINE <25 U/mL The antip hospholipid AB (IGM) (test code antibody syndrome (APS) lisa = [id number]) clinical-pathol ogic correlation indio t includesa clinical event (e.g. thrombosis, pre gnancyloss, thrombocytopeni a) and persistent positiveantipho spholipid antibodies (IgM or IgG CARTER>40 MPL/GPL, IgM or IgG anti-b2GPI anti bodies ora lupus anticoagu lant). International consensusguidel zara for APS suggest waiting at least 12weeks before retesting to confirm antibod ypersistence. The [facility] immunologicalcl assification criteria for [facility] lupuserythemato renetta (SLE) include testing for isotypeIgA, whi ch has yet to be incorporated into APScriteria. Lo w level antiphospholipi d antibodiesmay s ometimes be detected in the setting ofinfection, dr ug therapy or aging. <25 Nega tive 25-35 Equivocal- Foun d in small percentage of t he healthy population; may be reactive >35 Positive - Risk factor for thrombosis AYESHA (test code = Performing AYESHA) Lab EZ [facility] [address] [place] [address] Dawson Portillo MD, PhD, [facility] Culture - Routine (Right Venipuncture) 2020-01-09 00:00:00 Test Item Value Reference Range Interpretation Comments Result (test code = No growth in 5 days 6463-4) [facility] Culture - Routine (Right Venipuncture) 2020-01-09 00:00:00 Test Item Value Reference Range Interpretation Comments Result (test code = No growth in 5 days 6463-4) [facility] Culture - Routine (Right Venipuncture) 2020-01-09 00:00:00 Test Item Value Reference Range Interpretation Comments Result (test code = No growth in 5 days 6463-4) [facility] Culture - Routine (Right Venipuncture) 2020-01-09 00:00:00 Test Item Value Reference Range Interpretation Comments Result (test code = No growth in 5 days 6463-4) [facility] Culture - Routine (Right Venipuncture) 2020-01-09 00:00:00 Test Item Value Reference Range Interpretation Comments Result (test code = No growth in 5 days 6463-4) [id number]00 Test Item Value Reference Range Interpretation Comments CULTURE (BEAKER) (test No growth in 5 days code = 1095) BLOOD [id number] 00:00:00 Test Item Value Reference Range Interpretation Comments CULTURE (BEAKER) (test No growth in 5 days code = 1095) ECG 12 [id number] 08:23:08Interface, External Ris In 01/08/2020 8:23 AM CDTVentricular Rate 51 BPMAtrial Rate 51 BPMP-R Interval 184 msQRS Duration 100 msQ-T Interval 454 msQTC Calculation(Bazett) 418 msP Tea 6 degreesR Axis1 degreesT Tea 226 degreesSinus bradycardiaLeft ventricular hypertrophy with repolarization abnormalityAbnormal ECGWhen compared with ECG of 06-Jan-2020:37,No significant change was foundConfirmed by MD JOYCE JOSEPH P ([id number]) on 01/08/2020 8:23:02 [facility] 12 [id number] 08:23:08 Interface, External Ris In 01/08/2020 8:23 AM CDTVentricular Rate 51 BPMAtrial Rate 51 BPMP-R Interval 184 msQRS Duration 100 msQ-T Interval 454 msQTC Calculation(Bazett) 418 msP Tea 6 degreesR Axis1 degreesT Tea 226 degreesSinus bradycardiaLeft ventricular hypertrophy with repolarization abnormalityAbnormal ECGWhen compared with ECG of 06-Jan-2020:37,No significant change was foundConfirmed by MD JOYCE JOSEPH P ([id number]) on 01/08/2020 8:23:02 [facility] 12 [id number] 08:23:08Interface, External Ris In 01/08/2020 8:23 AM CDTVentricular Rate 51 BPMAtrial Rate 51 BPMP-R Interval 184 msQRS Duration 100 msQ-T Interval 454 msQTC Calculation(Bazett) 418 msP Tea 6 degreesR Axis1 degreesT Tea 226 degreesSinus bradycardiaLeft ventricular hypertrophy with repolarization abnormalityAbnormal ECGWhen compared with ECG of 06-Jan-2020:37,No significant change was foundConfirmed by MD JOYCE JOSEPH P ([id number]) on 01/08/2020 8:23:02 [facility] 12 lead 2020-01-08 08:23:08Interface, External Ris In 01/08/2020 8:23 AM CDTVentricular Rate 51 BPMAtrial Rate 51 BPMP-R Interval 184 msQRS Duration 100 msQ-T Interval 454 msQTC Calculation(Bazett) 418 msP Tea 6 degreesR Axis1 degreesT Tea 226 degreesSinus bradycardiaLeft ventricular hypertrophy with repolarization abnormalityAbnormal ECGWhen compared with ECG of 06-JAN-2020 20:37,No significant change was foundConfirmed by MD JOYCE JOSEPH P ([id number]) on 01/08/2020 8:23:02 [facility] [id number] 08:23:08 Interface, External Ris In 01/08/2020 8:23 AM CDTVentricular Rate 51 BPMAtrial Rate 51 BPMP-R Interval 184 msQRS Duration 100 msQ-T Interval 454 msQTC Calculation(Bazett) 418 msP Tea 6 degreesR Axis1 degreesT Tea 226 degreesSinus bradycardiaLeft ventricular hypertrophy with repolarization abnormalityAbnormal ECGWhen compared with ECG of 06-JAN-2020 20:37,No significant change was foundConfirmed by MD JOYCE JOSEPH P ([id number]) on 01/08/2020 8:23:02 [facility] [id number] 13:01:00 Test Item Value Reference Range Interpretation Comments Antithrombin III (test code = 61071-0) 91.0 % 80-120 Lab Interpretation (test code = Normal 67206-1) [facility] [id number] 13:01:00 Test Item Value Reference Range Interpretation Comments Antithrombin III (test code = 13022-0) 91.0 % 80-120 Lab Interpretation (test code = Normal 55920-0) [facility] [id number] 13:01:00 Test Item Value Reference Range Interpretation Comments Antithrombin III (test code = 85130-3) 91.0 % 80-120 Lab Interpretation (test code = Normal 36391-1) [facility] [id number] 13:01:00 Test Item Value Reference Range Interpretation Comments Antithrombin III (test code = 05198-1) 91.0 % 80-120 Lab Interpretation (test code = Normal 73816-1) [facility] [id number] 13:01:00 Test Item Value Reference Range Interpretation Comments Antithrombin III (test code = 76686-7) 91.0 % 80-120 Lab Interpretation (test code = Normal 76685-9) [facility] [id number] 13:01:00 Test Item Value Reference Range Interpretation Comments Antithrombin III (test code = 24461-6) 91.0 % 80-120 Lab Interpretation (test code = Normal 45639-4) [facility]ANTITHROMBIN [id number] 13:01:00 Test Item Value Reference Range Interpretation Comments ANTITHROMBIN III ACTIVITY (BEAKER) 91.0 % 80.0-120.0 (test code = 711) 2D Echo W/Doppler(CW/PW/Color)2020-01-06 10:40:51Ejection FractionSLEH ECHO HEARTLAB MKCKESSON CPACSInterface, External Ris In - 01/06/2020 10:41 AM C DTTransthoracic Echocardiography Report (TTE) Demographics Patient Name VANNESSA HOLT Date of Study 01/06/2020 CONALTY Gender Female Visit Number [id number] Race Unknown Room Number 926 Number Date of 1965 Referring Physician BOLIVAR Cardoza Age 54year(s) Bark Fitter Honorio Lockwood RDCS Interpreting Kenneth Marks MD Physician Procedure Type of Study TTE procedure:2DECHO W DOPPLER(CW/PW/COLOR) (Routine) Indications:Stroke work up.Clinical HistoryCVA, HTN, AphasiaHGB 13.3HCT 39.9 %Contrast Medium: Definity.Height: 64 inches Weight: 73.48 kg (162 lbs) BSA: 1.79 m^2 BMI: 27.81 kg/m^2HR: 69 bpm BP: 114/57 mmHg Summary 1. The left ventricle is chamber size (by vol index) is normal. No evidence of LV hypertrophy. All of the LV segments contract normally . Global LV systolic function normal . LVEF by Mendez's method of disk assessment is normal (60%). Grade 1 diastolic dysfunction (impaired relaxation and low-normal LA pressure). LA size isnormal (16-34 ml/m2) . 2. The right ventricular chamber size and systolic function are within normallimits. RA size is normal. Unable to estimate peak systolic PA pressure; inadequate TR velocity signal. 3. No significant valvular abnormalites. 4. IV saline contrast injection was negative for a PFO (p atent foramen ovale) at rest and post Valsalva [...] diastolic dysfunction (impaired relaxation and low-normal LA pressure).Left Atrium LA size is normal (16-34 ml/m2) [...] AoV cusp thickening. No evidence of aortic reg urgitation. Mitral Valve Mild MV leaflet thickening. Trace [...] Area: 13.38 cm^2 LA Vol. Index: 18 ml/m^2Left Ventricle LVIDd: 3.95 cm LVEDV:68.03 ml LV Septum Diastolic: 0.56 cm LV PW Diastolic: 0.58 cm LVEDV Mendez's:68.51 ml LVESV Mendez's:23.45 ml LVEF Mendez's: 65.8 % LVEDVI: 38 ml/m^2 LVESVI: 13ml/m^2 LVOT Diameter: 1.99 cm Right Ventricle RVOT [...] CO: 4.09 l/min LVOT CI: 2.28 [facility]^2[facility]CW/PW/Color)2020-01-06 10:40:51Ejection FractionSLEH ECHO HEARTLAB MKCKESSON CPACSInterface, External Ris In - 01/06/2020 10:41 AM CDTTransthoracic Echocardiography Report (TTE) Demographics Patient Name VANNESSA HOLT Date of Study 01/06/2020 CONALTY Gender Female Visit Number [id number] Race Unknown Room Number 926 Number Date of 1965 Referring Physician BOLIVAR Cardoza Age 54year(s) Bark Fitter Honorio Lockwood [email or web address]] Interpreting Kenneth Marks MD Physician Procedure Type of Study TTE procedure:2DECHO W DOPPLER(CW/PW/COLOR) (Routine) Indications:Stroke work up.Clinical HistoryCVA, HTN, AphasiaHGB 13.3HCT 39.9 %Contrast Medium: Definity.Height: 64 inches Weight: 73.48 kg (162 lbs) BSA: 1.79 m^2 BMI: 27.81 kg/m^2HR: 69 bpm BP: 114/57 mmHg Summary 1. The left ventricle is chamber size (by vol index) is normal. No evidence of LV hypertrophy. All of the LV segments contract normally . Global LV systolic function normal . LVEF by Mendez's method of disk assessment is normal (60%). Grade 1 diastolic dysfunction (impaired relaxation and low-normal LA pressure). LA size isnormal (16-34 ml/m2) . 2. The right ventricular chamber size and systolic function are within normallimits. RA size is normal. Unable to estimate [...] diastolic dysfunction (impaired relaxation and low-normal LA pressure).Left Atrium LA size is normal (16-34 ml/m2) . Right The right ventricular chamber size and systolicfunction are Ventricle within normal limits. Right Atrium RA size is normal. Atrial Normal interatrial septum by available views. Septum IV saline contrast injection was negative for a PFO (patent foramen ovale) at rest and post Valsalva . Aortic Valve Mild AoV cusp thickening. No evidence of aortic re gurgitation. Mitral Valve Mild MV leaflet thickening. Trace [...] Mendez's: 65.8 % LVEDVI: 38 ml/m^2 LVESVI: 13ml/m^2 LVOT Diameter: 1.99 cm Right Ventricle RVOT [...] CO: 4.09 l/min LVOT CI: 2.28 l/min/m^2[facility] W/Doppler(CW/PW/Color)2020-01-06 10:40:51Ejection FractionSLEH ECHO HEARTLAB MKCKESSON CPACSInterface, External Ris In - 01/06/2020 10:41 AM CDTTransthoracic Echocardiography Report (TTE) Demographics Patient Name VANNESSA HOLT Date of Study 01/06/2020 CONALTY Gender Female Visit Number [id number] Race Unknown Room Number 926 Number Date of 1965 Referring Physician BOLIVAR Cardoza Age 54year(s) Bark Fitter Honorio Lockwood RDCS Interpreting Kenneth Marks MD Physician Procedure Typeof Study TTE procedure:2DECHO W DOPPLER(CW/PW/COLOR) (Routine) Indications:Stroke work up.Clinical HistoryCVA, HTN, AphasiaHGB 13.3HCT 39.9 %Contrast Medium: Definity.Height: 64 inches Weight: 73.48 kg(162 lbs) BSA: 1.79 m^2 BMI: 27.81 kg/m^2HR: 69 bpm BP: 114/57 mmHg Summary 1. The left ventricle ischamber size (by vol index) is normal. No evidence of LV hypertrophy. All of the LV segments contract normally . Global LV systolic function normal . LVEF by Mendez's method of disk assessment is normal (60%). Grade 1 diastolic dysfunction (impaired relaxation and low-normal LA pressure). LA size is normal (16-34 ml/m2) . 2. The right ventricular chamber size and systolic function are within normallimits. RA size is normal. Unable to estimate peak systolic PA pressure; inadequate TR velocity signal. 3. No significant valvular abnormalites. 4. IV saline contrast injection was negative for a PFO (patent foramen ovale) at rest and post Valsalva . Previous Study No prior exam available for comparison. Signature Electronically signedby Kenneth Marks MD(Interpreting physician) on 01/06/2020 10:40 AM Findings Left The left ventricle is chamber size (by vol index) isnormal Ventricle (female - LVED vol - 29-61ml/m2). [...] by available views. Valve Aorta Aortic root s ize (SInus of Valsalva diameter) is normal . Pericardium No significant pericardial effusion is visualized. Chambers/Structures Left Atrium LA Volume: 31.5 ml LA Area: 13.38 cm^2 LA Vol. Index: 18 ml/m^2 Left Ventricle LVIDd: 3.95 cm LVEDV:68.03 ml LV Septum Diastolic: 0.56 cm LV PW Diastolic: 0.58 cmLVEDV Mendez's:68.51 ml LVESV Mendez's:23.45 ml LVEF Mendez's: 65.8 % LVEDVI: 38 ml/m^2 LVESVI: 13 ml/m^2 LVOT Diameter: 1.99 cm Right Ventricle RVOT VTI: 12.68 cm Doppler/Quantitative MeasurementsMitral Valve MV Peak E-Wave: 0.56 m/s MV [...] Gradient: 1.83 mmHg LVOT Diameter: 1.99 cm LVOTVTI: 19.05 cm LVOT Area: 3.11 cm^2 LVOT SV:59.22 ml LVOT CO: 4.09 l/min LVOT CI: 2.28 l/min/m^2[facility] W/Doppler(CW/PW/Color) 2020-01-06 10:40:51Ejection FractionSLEH ECHO HEARTLAB MKCKESSON CPACSInterface, External Ris In - 01/06/2020 10:41 AM CDTTransthoracic Echocardiography Report (TTE) Demographics Patient Name VANNESSA HOLT Date of Study 01/06/2020 CONALTY Gender Female Visit Number [id number] Race Unknown Number [id number] Number Date of 1965 Referring Physician BOLIVAR Grimaldo Age 54year(s) Bark Fitter Honorio Lockwood RDCS Interpreting Kenneth Marks MD Physician Procedure Type of Study TTE procedure:2DECHO W DOPPLER(CW/PW/COLOR) (Routine) Indications:Stroke work up.Clinical HistoryCVA, HTN, AphasiaHGB 13.3HCT 39.9 %Contrast Medium: Definity.Height: 64 inches Weight: 73.48 kg (162 lbs) BSA: 1.79 m^2 BMI: 27.81 kg/m^2HR: 69 bpm BP: 114/57 mmHg Summary 1. The left ventricle is chamber size (by vol index) is normal. No evidence of LV hypertrophy. All of the LV segments contract normally . Global LV systolic function normal . LVEF by Mendez's method of disk assessment is normal (60%). Grade 1 diastolic dysfunction (impaired relaxation and low-normal LA pressure). LA size isnormal (16-34 ml/m2) . 2. The right ventricular [...] diastolic dysfunction (impaired relaxation and low-normal LA pressure).Left Atrium LA size is normal (16-34 ml/m2) [...] estimate peak systolic PA pressure; inadequate TR velocitysignal. Pulmonic Normal PV structure appears normal by available views. Valve Aorta Aortic root size(SInus of Valsalva diameter) is normal . Pericardium [...] m/s Peak Gradient: 3.27 mmHg Mean Gradient: 1.77mmHg AV Area (continuity): 3.17 cm^2 AV VTI: 18.69 cm AV DVI: 1.02 LVOT Peak Velocity: 0.92 m/s PeakGradient: 3.42 mmHg Mean Velocity: 0.65 m/s Mean Gradient: 1.83 mmHg LVOT Diameter: 1.99 cm LVOT VTI: 19.05 cm LVOT Area: 3.11 cm^2 LVOT SV:59.22 ml LVOT CO: 4.09 l/min LVOT CI: 2.28 l/min/m^2[facility] W/Doppler(CW/PW/Color)2020-01-06 10:40:51Ejection FractionSLEH ECHO HEARTLAB [facility]VALERY CPACSInterface, External Ris In - 01/06/2020 10:41 [facility] (TTE) Demographics Patient Name VANNESSA HOLT Date of Study 01/06/2020 EDWIGE Gender Female Visit Number [id number] Race Unknown Number [id number] Number Date of 1965 Referring Physician BOLIVAR Cardoza Age 54 year(s) Bark Fitter Honorio Lockwood [facility] [[email or web address]] Interpreting Kenneth Marks MD Physician Procedure Type of Study TTE procedure:2DECHO W DOPPLER(CW/PW/COLOR) (Routine) Indications:Stroke work up.Clinical HistoryCVA, HTN, AphasiaHGB 13.3HCT 39.9 %Contrast Medium: Definity.Height: 64 inches Weight: 73.48 kg (162 lbs) BSA: 1.79 m^2 BMI: 27.81 kg/m^2HR: 69 bpm BP: 114/57 mmHg Summary 1. The left ventricle is chamber size (by vol index) is normal. No evidence of LV hypertrophy. All of the LV segments contractnormally . Global LV systolic function normal . [...] AoV cusp thickening. No evidence of aortic regu rgitation. Mitral Valve Mild MV leaflet thickening. Trace mitral regurgitation. Tricuspid A trace oftricuspid regurgitation. Valve Unable to estimate peak systolic [...] CO: 4.09 l/min LVOT CI: 2.28 l/min/m^2[facility] W/Doppler(CW/PW/Color)2020-01-06 10:40:51Ejection FractionSLEH ECHO HEARTLAB MKCKESSON CPACSInterface, External Ris In - 01/06/2020 10:41 AM CDTTransthoracic Echocardiography Report (TTE) Demographics Patient Name VANNESSA HOLT Date of Study 01/06/2020 CONALTY Gender Female Visit Number [id number] Race Unknown Room Number 926 Number Date of 1965 Referring Physician BOLIVAR Cardoza Age 54year(s) Bark Fitter Honorio Lockwood RDCS Interpreting Kenneth Marks MD Physician Procedure Type of Study TTE procedure:2DECHO W DOPPLER(CW/PW/COLOR) (Routine) Indications:Stroke work up.Clinical HistoryCVA, HTN, AphasiaHGB 13.3HCT 39.9 %Contrast Medium: Definity.Height: 64 inches Weight: 73.48 kg (162 lbs) BSA: 1.79 m^2 BMI: 27.81 kg/m^2HR: 69 bpm BP: 114/57 mmHg Summary 1. The left ventricle is chamber size (by vol index) is normal. No evidence of LV hypertrophy. All of the LV segments contract normally . Global LV systolic function normal . LVEF by Mendez's method of disk assessment is normal (60%). Grade 1 diastolic dysfunction (impaired relaxation and low-normal LA pressure). LA size isnormal (16-34 ml/m2) . 2. The right ventricular chamber size and systolic function are within normallimits. RA size is normal. Unable to estimate [...] diastolic dysfunction (impaired relaxation and low-normal LA pressure).Left Atrium LA size is normal (16-34 ml/m2) [...] AoV cusp thickening. No evidence of aortic reg urgitation. Mitral Valve Mild MV leaflet thickening. Trace mitral regurgitation. Tricuspid A trace of tricuspid regurgitation. Valve Unable to estimate peak systolic PA pressure; inadequate TR velocitysignal. Pulmonic Normal PV structure appears normal by available views. Valve Aorta Aortic root size(SInus of Valsalva diameter) is normal . Pericardium No significant pericardial effusion is visualized. Chambers/Structures Left Atrium LA Volume: 31.5 ml LA Area: 13.38 cm^2 LA Vol. Index: 18 ml/m^2 Left Ventricle LVIDd: 3.95 cm LVEDV:68.03 ml LV Septum Diastolic: 0.56 cm LV PW Diastolic: 0.58 cm LVEDV Mendez's:68.51 ml LVESV Mendez's:23.45 ml LVEF Mendez's: 65.8 % LVEDVI: 38 ml/m^2 LVESVI: 13 ml /m^2 LVOT Diameter: 1.99 cm Right Ventricle RVOT [...] 1.83 mmHg LVOT Diameter: 1.99 cm LVOT VTI:19.05 cm LVOT Area: 3.11 cm^2 LVOT SV:59.22 ml LVOT CO: 4.09 l/min LVOT CI: 2.28 l/min/m^2[facility] Hospital[facility] [id number] 10:15:00 Test Item Value Reference Range Interpretation Comments Hemoglobin A1C (test code = 4548-4) 5.3 % 4.3-6.1 Lab Interpretation (test code = Normal 19310-3) [facility] [id number] 10:15:00 Test Item Value Reference Range Interpretation Comments Hemoglobin A1C (test code = 4548-4) 5.3 % 4.3-6.1 Lab Interpretation (test code = Normal 96608-2) [facility]oglobin [id number] 10:15:00 Test Item Value Reference Range Interpretation Comments Hemoglobin A1C (test code = 4548-4) 5.3 % 4.3-6.1 Lab Interpretation (test code = Normal 19489-0) [facility] JosephHemoglobin [id number] 10:15:00 Test Item Value Reference Range Interpretation Comments Hemoglobin A1C (test code = 4548-4) 5.3 % 4.3-6.1 Lab Interpretation (test code = Normal 68744-9) [facility]oglobin [id number] 10:15:00 Test Item Value Reference Range Interpretation Comments Hemoglobin A1C (test code = 4548-4) 5.3 % 4.3-6.1 Lab Interpretation (test code = Normal 54299-8) [facility]oglobin [id number] 10:15:00 Test Item Value Reference Range Interpretation Comments Hemoglobin A1C (test code = 4548-4) 5.3 % 4.3-6.1 Lab Interpretation (test code = Normal 56775-9) [facility] JosephHEMOGLOBIN [id number] 10:15:00 Test Item Value Reference Range Interpretation Comments HEMOGLOBIN A1C (BEAKER) (test code = 5.3 % 4.3-6.1 368) Vitamin B12 and [id number] 22:45:00 Test Item Value Reference Range Interpretation Comments Vitamin B12 (test 633 pg/mL 213-816 code = 2132-9) Folate (test code = 32.50 ng/mL See_Comment [Automa gill 2284-8) message] The system which generated this result transmit gill reference range : >=7.00. The reference range was not used to interpret this result as normal/abnormal . AYESHA (test code = AYESHA) Braze Operator ID - FSE Lab Interpretation Normal (test code = 59454-0) [facility] JosephVitamin B12 and [id number] 22:45:00 Test Item Value Reference Range Interpretation Comments Vitamin B12 (test 633 pg/mL 213-816 code = 2132-9) Folate (test code = 32.50 ng/mL See_Comment [Automa gill 2284-8) message] The system which generated this result transmit gill reference range : >=7.00. The reference range was not used to interpret this result as normal/abnormal . AYESHA (test code = AYESHA) Braze Operator ID - FSE Lab Interpretation Normal (test code = 28369-8) [facility] JosephVitamin B12 and [id number] 22:45:00 Test Item Value Reference Range Interpretation Comments Vitamin B12 (test 633 pg/mL 213-816 code = 2132-9) Folate (test code = 32.50 ng/mL See_Comment [Automa gill 2284-8) message] The system which generated this result transmit gill reference range : >=7.00. The reference range was not used to interpret this result as normal/abnormal . AYESHA (test code = AYESHA) Braze Operator ID - FSE Lab Interpretation Normal (test code = 33906-4) [facility]Vitamin B12 and [id number] 22:45:00 Test Item Value Reference Range Interpretation Comments Vitamin B12 (test 633 pg/mL 213-816 code = 2132-9) Folate (test code = 32.50 ng/mL See_Comment [Automa gill 2284-8) message] The system which generated this result transmit gill reference range : >=7.00. The reference range was not used to interpret this result as normal/abnormal . AYESHA (test code = AYESHA) Braze Operator ID - FSE Lab Interpretation Normal (test code = 14700-9) [facility] B12 and [id number] 22:45:00 Test Item Value Reference Range Interpretation Comments Vitamin B12 (test 633 pg/mL 213-816 code = 2132-9) Folate (test code = 32.50 ng/mL See_Comment [Automa gill 2284-8) message] The system which generated this result transmit gill reference range : >=7.00. The reference range was not used to interpret this result as normal/abnormal . AYESHA (test code = AYESHA) Braze Operator ID - FSE Lab Interpretation Normal (test code = 83298-1) [facility]Vitamin B12 and [id number] 22:45:00 Test Item Value Reference Range Interpretation Comments Vitamin B12 (test 633 pg/mL 213-816 code = 2132-9) Folate (test code = 32.50 ng/mL See_Comment [Automa gill 2284-8) message] The system which generated this result transmit gill reference range : >=7.00. The reference range was not used to interpret this result as normal/abnormal . AYESHA (test code = AYESHA) Braze Operator ID - FSE Lab Interpretation Normal (test code = 26016-8) [facility] JosephVITAMIN B12 AND [id number] 22:45:00 Test Item Value Reference Range Interpretation Comments VITAMIN B12 (BEAKER) (test code = 633 pg/mL 213-811 774) FOLATE (BEAKER) (test code = 362) 32.50 ng/mL >=7.00 Braze Operator ID - FSECT, CAROTID, [id number] 21:05:00Unlisted Reason for Exam - Click Yes [...] atrophy with ex vacuo dilatation of the ventricularsystem proportionate to sulci. There is no hydrocephalus [...] neck. Signed: Leidy Enamorado MDReport Verified Date/Time: 0 01/05/2020 21:05:35 [facility] CTANGIO [id number] 21:05:00Unlisted Reason for Exam - Click Yes [...] atrophy with ex vacuo dilatation of the ventricularsystem proportionate to sulci. There is no hydrocephalus [...] neck. Signed: Leidy Enamorado MDReport Verified Date/Time: 0 01/05/2020 21:05:35 [facility] [id number] 21:05:00Interface, External Ris In - 01/05/2020 9:07 PM CDTFINAL REPORT CLINICAL HISTORY: Neuro deficit, acute, stroke suspected TECHNIQUE: Initially, noncontrast head CT images were performed. Contiguous contrast-enhanced axial images through the neck followed by axial images through thehead with coronal and sagittal reformations to assess the arterial circulation. 3-D reconstructions were performed using a volume rendered technique separately on a workstation. This exam was performedaccording to the departmental dose optimization program which [...] occlusion or high-grade stenosis. Carotid arteries: No occlusionor high-grade stenosis. Vertebral arteries: No occlusion or high-grade stenosis. No fracture or suspicious osseous lesion. Cervical soft tissues are unremarkable. Visualized lung apices are clear. IMPRESSION:No proximal branch arterial occlusion or high-grade focal stenosis within the head and neck. Signed: Leidy Enamorado MDReport Verified Date/Time: 01/05/2020 21:05:35 [facility] [id number] 21:05:00Interface, External Ris In - 01/05/2020 9:07 PM CDTFINAL REPORT CLINICAL HISTORY: Neuro deficit, acute, stroke suspected TECHNIQUE: Initially, noncontrast head CT images were performed. Contiguous contrast-enhanced axial images through the neck followed by axial images through thehead with coronal and sagittal reformations to assess the arterial circulation. 3-D reconstructions were performed using a volume rendered technique separately on a workstation. This exam was performedaccording to the departmental dose optimization program which [...] occlusion or high-grade stenosis. Carotid arteries: No occlusionor high-grade stenosis. Vertebral arteries: No occlusion or high-grade stenosis. No fracture or suspicious osseous lesion. Cervical soft tissues are unremarkable. Visualized lung apices are clear. IMPRESSION:No proximal branch arterial occlusion or high-grade focal stenosis within the head and neck. Signed: Leidy Enamorado MDReport Verified Date/Time: 01/05/2020 21:05:35 [facility] [id number] 21:05:00Interface, External Ris In - 01/05/2020 9:07 PM CDTFINAL REPORT CLINICAL HISTORY: Neuro deficit, acute, stroke suspected TECHNIQUE: Initially, noncontrast head CT images were performed. Contiguous contrast-enhanced axial images through the neck followed by axial images through the head with coronal and sagittal reformations to assess the arterial circulation. 3-D reconstructionswere performed using a volume rendered technique separately [...] frontal lobe encephalomalacia underlying prior craniotomy. Punctate calcificationsin the left middle frontal gyrus. Ex vacuo dilatation of the left frontal horn. Generalized cerebralatrophy with ex vacuo dilatation of the ventricular [...] Leidy Enamorado MDReport Verified Date/Time: 01/05/2020 21:05:35 [facility] [id number] 21:05:00Interface, External Ris In - 01/05/2020 9:07 PM CDTFINAL REPORT CLINICAL HISTORY: Neuro deficit, acute, stroke suspected TECHNIQUE: Initially, noncontrast head CT images were performed. Contiguous contrast-enhanced axial images through the neck followed by axial images through thehead with coronal and sagittal reformations to assess the arterial circulation. 3-D reconstructions were performed using a volume rendered technique separately on a workstation. This exam was performedaccording to the departmental dose optimization program which [...] occlusion or high-grade stenosis. Carotid arteries: No occlusionor high-grade stenosis. Vertebral arteries: No occlusion or high-grade stenosis. No fracture or suspicious osseous lesion. Cervical soft tissues are unremarkable. Visualized lung apices are clear. IMPRESSION:No proximal branch arterial occlusion or high-grade focal stenosis within the head and neck. Signed: Leidy Enamorado Verified Date/Time: 01/05/2020 21:05:35 [facility] [id number] 21:05:00Interface, External Ris In - 01/05/2020 9:07 PM CDTFINAL REPORT CLINICAL HISTORY: Neuro deficit, acute, stroke suspected TECHNIQUE: Initially, noncontrast head CT images were performed. Contiguous contrast-enhanced axial images through the neck followed by axial images through thehead with coronal and sagittal reformations to assess the arterial circulation. 3-D reconstructions were performed using a volume rendered technique separately on a workstation. This exam was performedaccording to the departmental dose optimization program which [...] occlusion or high-grade stenosis. Carotid arteries: No occlusionor high-grade stenosis. Vertebral arteries: No occlusion or high-grade stenosis. No fracture or suspicious osseous lesion. Cervical soft tissues are unremarkable. Visualized lung apices are clear. IMPRESSION:No proximal branch arterial occlusion or high-grade focal stenosis within the head and neck. Signed: Leidy Enamorado Verified Date/Time: 01/05/2020 21:05:35 [facility] [id number] 21:05:00Interface, External Ris In - 01/05/2020 9:07 PM CDTFINAL REPORT CLINICAL HISTORY: Neuro deficit, acute, stroke suspected TECHNIQUE: Initially, noncontrast head CT images were performed. Contiguous contrast-enhanced axial images through the neck followed by axial images through thehead with coronal and sagittal reformations to assess the arterial circulation. 3-D reconstructions were performed using a volume rendered technique separately on a workstation. This exam was performedaccording to the departmental dose optimization program which [...] occlusion or high-grade stenosis. Carotid arteries: No occlusionor high-grade stenosis. Vertebral arteries: No occlusion or high-grade stenosis. No fracture or suspicious osseous lesion. Cervical soft tissues are unremarkable. Visualized lung apices are clear. IMPRESSION:No proximal branch arterial occlusion or high-grade focal stenosis within the head and neck. Signed: Leidy Enamorado Verified Date/Time: 01/05/2020 21:05:35 [facility] [id number] 21:05:00Interface, External Ris In - 01/05/2020 9:07 PM CDTFINAL REPORT CLINICAL HISTORY: Neuro deficit, acute, stroke suspected TECHNIQUE: Initially, noncontrast head CT images were performed. Contiguous contrast-enhanced axial images through the neck followed by axial images through thehead with coronal and sagittal reformations to assess the arterial circulation. 3-D reconstructions were performed using a volume rendered technique separately on a workstation. This exam was performedaccording to the departmental dose optimization program which [...] occlusion or high-grade stenosis. Carotid arteries: No occlusionor high-grade stenosis. Vertebral arteries: No occlusion or high-grade stenosis. No fracture or suspicious osseous lesion. Cervical soft tissues are unremarkable. Visualized lung apices are clear. IMPRESSION:No proximal branch arterial occlusion or high-grade focal stenosis within the head and neck. S igned: Leidy Enamorado Verified Date/Time: 01/05/2020 21:05:35 [facility] [id number] 21:05:00Interface, External Ris In - 01/05/2020 9:07 PM CDTFINAL REPORT CLINICAL HISTORY: Neuro deficit, acute, stroke suspected TECHNIQUE: Initially, noncontrast head CT images were performed. Contiguous contrast-enhanced axial images through the neck followed by axial images through thehead with coronal and sagittal reformations to assess the arterial circulation. 3-D reconstructions were performed using a volume rendered technique separately on a workstation. This exam was performedaccording to the departmental dose optimization program which [...] occlusion or high-grade stenosis. Carotid arteries: No occlusionor high-grade stenosis. Vertebral arteries: No occlusion or high-grade stenosis. No fracture or suspicious osseous lesion. Cervical soft tissues are unremarkable. Visualized lung apices are clear. IMPRESSION:No proximal branch arterial occlusion or high-grade focal stenosis within the head and neck. Signed: Leidy Enamorado Verified Date/Time: 01/05/2020 21:05:35 [facility] [id number] 21:05:00Interface, External Ris In - 01/05/2020 9:07 PM CDTFINAL REPORT CLINICAL HISTORY: Neuro deficit, acute, stroke suspected TECHNIQUE: Initially, noncontrast head CT images were performed. Contiguous contrast-enhanced axial images through the neck followed by axial images through thehead with coronal and sagittal reformations to assess the arterial circulation. 3-D reconstructions were performed using a volume rendered technique separately on a workstation. This exam was performedaccording to the departmental dose optimization program which [...] occlusion or high-grade stenosis. Carotid arteries: No occlusionor high-grade stenosis. Vertebral arteries: No occlusion or high-grade stenosis. No fracture or suspicious osseous lesion. Cervical soft tissues are unremarkable. Visualized lung apices are clear. IMPRESSION:No proximal branch arterial occlusion or high-grade focal stenosis within the head and neck. Signed: Leidy Enamorado Verified Date/Time: 01/05/2020 21:05:35 [facility] [id number] 21:05:00Interface, External Ris In - 01/05/2020 9:07 PM CDTFINAL REPORT CLINICAL HISTORY: Neuro deficit, acute, stroke suspected TECHNIQUE: Initially, noncontrast head CT images were performed. Contiguous contrast-enhanced axial images through the neck followed by axial images through thehead with coronal and sagittal reformations to assess the arterial circulation. 3-D reconstructions were performed using a volume rendered technique separately on a workstation. This exam was performedaccording to the departmental dose optimization program which [...] occlusion or high-grade stenosis. Carotid arteries: No occlusionor high-grade stenosis. Vertebral arteries: No occlusion or high-grade stenosis. No fracture or suspicious osseous lesion. Cervical soft tissues are unremarkable. Visualized lung apices are clear. IMPRESSION:No proximal branch arterial occlusion or high-grade focal stenosis within the head and neck. Signed: Leidy Enamorado Verified Date/Time: 01/05/2020 21:05:35 [facility] [id number] 21:05:00Interface, External Ris In - 01/05/2020 9:07 PM CDTFINAL REPORT CLINICAL HISTORY: Neuro deficit, acute, stroke suspected TECHNIQUE: Initially, noncontrast head CT images were performed. Contiguous contrast-enhanced axial images through the neck followed by axial images through thehead with coronal and sagittal reformations to assess the arterial circulation. 3-D reconstructions were performed using a volume rendered technique separately on a workstation. This exam was performedaccording to the departmental dose optimization program which [...] occlusion or high-grade stenosis. Carotid arteries: No occlusionor high-grade stenosis. Vertebral arteries: No occlusion or high-grade stenosis. No fracture or suspicious osseous lesion. Cervical soft tissues are unremarkable. Visualized lung apices are clear. IMPRESSION:No proximal branch arterial occlusion or high-grade focal stenosis within the head and neck. Signed: Leidy Enamorado Verified Date/Time: 01/05/2020 21:05:35 [facility] [id number] 21:05:00Interface, External Ris In - 01/05/2020 9:07 PM CDTFINAL REPORT CLINICAL HISTORY: Neuro deficit, acute, stroke suspected TECHNIQUE: Initially, noncontrast head CT images were performed. Contiguous contrast-enhanced axial images through the neck followed by axial images through thehead with coronal and sagittal reformations to assess the arterial circulation. 3-D reconstructions were performed using a volume rendered technique separately on a workstation. This exam was performedaccording to the departmental dose optimization program which [...] occlusion or high-grade stenosis. Carotid arteries: No occlusionor high-grade stenosis. Vertebral arteries: No occlusion or high-grade stenosis. No fracture or suspicious osseous lesion. Cervical soft tissues are unremarkable. Visualized lung apices are clear. IMPRESSION:No proximal branch arterial occlusion or high-grade focal stenosis within the head and neck. Signed: Leidy Enamorado MDReport Verified Date/Time: 01/05/2020 21:05:35 [facility] T[facility] [id number] 19:10:00 Test Item Value Reference Range Interpretation Comments TSH (test code = 1.813 See_Comment [Automated 37198-5) message] The system which generated this result transmit gill reference range : 0.350 - 4.940 uIU/mL. The reference range was not used to interpret this result as normal/abnormal . AYESHA (test code = AYESHA) Braze Operator ID - BS Lab Interpretation Normal (test code = 38659-8) [facility]/Free T4 If [id number] 19:10:00 Test Item Value Reference Range Interpretation Comments TSH (test code = 1.813 See_Comment [Automated 76207-2) message] The system which generated this result transmit gill reference range : 0.350 - 4.940 uIU/mL. The reference range was not used to interpret this result as normal/abnormal . AYESHA (test code = AYESHA) Braze Operator ID - BS Lab Interpretation Normal (test code = 65274-9) [facility]/Free T4 If [id number] 19:10:00 Test Item Value Reference Range Interpretation Comments TSH (test code = 1.813 See_Comment [Automated 07663-6) message] The system which generated this result transmit gill reference range : 0.350 - 4.940 uIU/mL. The reference range was not used to interpret this result as normal/abnormal . AYESHA (test code = AYESHA) Braze Operator ID - BS Lab Interpretation Normal (test code = 19817-3) [facility]/Free T4 If [id number] 19:10:00 Test Item Value Reference Range Interpretation Comments TSH (test code = 1.813 See_Comment [Automated 17751-5) message] The system which generated this result transmit gill reference range : 0.350 - 4.940 uIU/mL. The reference range was not used to interpret this result as normal/abnormal . AYESHA (test code = AYESHA) Braze Operator ID - BS Lab Interpretation Normal (test code = 29581-5) [facility]/Free T4 If [id number] 19:10:00 Test Item Value Reference Range Interpretation Comments TSH (test code = 1.813 See_Comment [Automated 23901-3) message] The system which generated this result transmit gill reference range : 0.350 - 4.940 uIU/mL. The reference range was not used to interpret this result as normal/abnormal . AYESHA (test code = AYESHA) Braze Operator ID - BS Lab Interpretation Normal (test code = 40365-1) [facility] [id number] 19:10:00 Test Item Value Reference Range Interpretation Comments TSH (test code = 1.813 See_Comment [Automated 82955-0) message] The system which generated this result transmit gill reference range : 0.350 - 4.940 uIU/mL. The reference range was not used to interpret this result as normal/abnormal . AYESHA (test code = AYESHA) Braze Operator ID - BS Lab Interpretation Normal (test code = 52478-9) [facility] T4 IF [id number] 19:10:00 Test Item Value Reference Range Interpretation Comments THYROID STIMULATING HORMONE 1.813 uIU/mL 0.350-4.940 (BEAKER) (test code = 772) Braze Operator ID - BSLipid [id number] 15:53:00 Test Item Value Reference Range Interpretation Comments Triglycerides (test 129 mg/dL Specimen code = 2571-8) slightly hemolyzed Cholesterol (test 201 mg/dL Specimen code = 2093-3) slightly hemolyzed HDL (test code = 52 mg/dL 5-9) LDL Calculated (test 123 mg/dL code = 27735-6) AYESHA (test code = Triglyceride AYESHA) Reference Range: Low Risk <150 Borderline 150-199 High Risk 200-499 Very High Risk >=500 Cholesterol Reference Range: Low Risk <200 Borderline 200-239 High Risk >240 HDL Cholesterol Reference Range: Low Risk >=60 High Risk <40 LDL Cholesterol Reference Range: Optimal <100 Near Optimal 100-129 Borderline 130-159 High 160-189 Very High >=190 Braze Operator ID - BS [facility] function [id number] 15:53:00 Test Item Value Reference Range Interpretation Comments Protein, Total (test 7.4 See_Comment Specime n slightly code = 2885-2) hemolyzed [Automated message] The system which generated this result transmit gill reference range : 6.0 - 8.3 gm/dL . The reference range was not u sed to interpret th is result as normal/abnormal . Albumin (test code = 4.1 g/dL 3.5-5 Specime n slightly 25452-8) hemolyzed Total Bilirubin (test 1.0 mg/dL 0.2-1.2 Specim en slightly code = 1974-) hemolyzed Bilirubin, Direct 0.4 mg/dL 0.1-0.5 Specimen s lightly (test code = 1967-7) hemolyz ed Alkaline Phosphatase 44 U/L 40-150 (test code = 6768-6) AST (test code = 31 U/L 5-34 Specimen sl ightly 1920-8) hemolyzed ALT (test code = 27 U/L 6-55 Specimen sl ightly 1742-6) hemolyzed AYESHA (test code = AYESHA) Braze Operator ID - BS Lab Interpretation Normal (test code = 39152-9) [facility] [id number] 15:53:00 Test Item Value Reference Range Interpretation Comments Triglycerides (test 129 mg/dL Specimen code = 2571-8) slightly hemolyzed Cholesterol (test 201 mg/dL Specimen code = 2093-3) slightly hemolyzed HDL (test code = 52 mg/dL 2084-12) LDL Calculated (test 123 mg/dL code = 03689-6) AYESHA (test code = Triglyceride AYESHA) Reference Range: Low Risk <150 Borderline 150-199 High Risk 200-499 Very High Risk >=500 Cholesterol Reference Range: Low Risk <200 Borderline 200-239 High Risk >240 HDL Cholesterol Reference Range: Low Risk >=60 High Risk <40 LDL Cholesterol Reference Range: Optimal <100 Near Optimal 100-129 Borderline 130-159 High 160-189 Very High >=190 Braze Operator ID - BS [facility] function [id number] 15:53:00 Test Item Value Reference Range Interpretation Comments Protein, Total (test 7.4 See_Comment Specime n slightly code = 2885-2) hemolyzed [Automated message] The system which generated this result transmit gill reference range : 6.0 - 8.3 gm/dL . The reference range was not u sed to interpret th is result as normal/abnormal . Albumin (test code = 4.1 g/dL 3.5-5 Specime n slightly 43275-3) hemolyzed Total Bilirubin (test 1.0 mg/dL 0.2-1.2 Specim en slightly code = 1974-) hemolyzed Bilirubin, Direct 0.4 mg/dL 0.1-0.5 Specimen s lightly (test code = 1967-) hemolyz ed Alkaline Phosphatase 44 U/L 40-150 (test code = 6768-6) AST (test code = 31 U/L 5-34 Specimen sl ightly 1920-8) hemolyzed ALT (test code = 27 U/L 6-55 Specimen sl ightly 1742-6) hemolyzed AYESHA (test code = AYESHA) Braze Operator ID - BS Lab Interpretation Normal (test code = 44658-8) [facility] [id number] 15:53:00 Test Item Value Reference Range Interpretation Comments Triglycerides (test 129 mg/dL Specimen code = 2571-8) slightly hemolyzed Cholesterol (test 201 mg/dL Specimen code = 3-3) slightly hemolyzed HDL (test code = 52 mg/dL 2084-12) LDL Calculated (test 123 mg/dL code = 24390-7) AYESHA (test code = Triglyceride AYESHA) Reference Range: Low Risk <150 Borderline 150-199 High Risk 200-499 Very High Risk >=500 Cholesterol Reference Range: Low Risk <200 Borderline 200-239 High Risk >240 HDL Cholesterol Reference Range: Low Risk >=60 High Risk <40 LDL Cholesterol Reference Range: Optimal <100 Near Optimal 100-129 Borderline 130-159 High 160-189 Very High >=190 Braze Operator ID - BS [facility] function [id number] 15:53:00 Test Item Value Reference Range Interpretation Comments Protein, Total (test 7.4 See_Comment Specime n slightly code = 2885-2) hemolyzed [Automated message] The system which generated this result transmit gill reference range : 6.0 - 8.3 gm/dL . The reference range was not u sed to interpret th is result as normal/abnormal . Albumin (test code = 4.1 g/dL 3.5-5 Specime n slightly 24266-2) hemolyzed Total Bilirubin (test 1.0 mg/dL 0.2-1.2 Specim en slightly code = 1974-) hemolyzed Bilirubin, Direct 0.4 mg/dL 0.1-0.5 Specimen s lightly (test code = 1967-) hemolyz ed Alkaline Phosphatase 44 U/L 40-150 (test code = 6768-6) AST (test code = 31 U/L 5-34 Specimen sl ightly 1920-8) hemolyzed ALT (test code = 27 U/L -55 Specimen sl ightly 2-6) hemolyzed AYESHA (test code = AYESHA) Braze Operator ID - BS Lab Interpretation Normal (test code = 57659-4) [facility] [id number] 15:53:00 Test Item Value Reference Range Interpretation Comments Triglycerides (test 129 mg/dL Specimen code = 2571-8) slightly hemolyzed Cholesterol (test 201 mg/dL Specimen code = 2093-3) slightly hemolyzed HDL (test code = 52 mg/dL 2084-9) LDL Calculated (test 123 mg/dL code = 32615-9) AYESHA (test code = Triglyceride AYESHA) Reference Range: Low Risk <150 Borderline 150-199 High Risk 200-499 Very High Risk >=500 Cholesterol Reference Range: Low Risk <200 Borderline 200-239 High Risk >240 HDL Cholesterol Reference Range: Low Risk >=60 High Risk <40 LDL Cholesterol Reference Range: Optimal <100 Near Optimal 100-129 Borderline 130-159 High 160-189 Very High >=190 Braze Operator ID - BS [facility]Hep[facility] function [id number] 15:53:00 Test Item Value Reference Range Interpretation Comments Protein, Total (test 7.4 See_Comment Specime n slightly code = 2885-2) hemolyzed [Automated message] The system which generated this result transmit gill reference range : 6.0 - 8.3 gm/dL . The reference range was not u sed to interpret th is result as normal/abnormal . Albumin (test code = 4.1 g/dL 3.5-5 Specime n slightly 71308-4) hemolyzed Total Bilirubin (test 1.0 mg/dL 0.2-1.2 Specim en slightly code = 1974-) hemolyzed Bilirubin, Direct 0.4 mg/dL 0.1-0.5 Specimen s lightly (test code = 1967-) hemolyz ed Alkaline Phosphatase 44 U/L 40-150 (test code = 6768-6) AST (test code = 31 U/L 5-34 Specimen sl ightly 1919-8) hemolyzed ALT (test code = 27 U/L 6-55 Specimen sl ightly 1742-6) hemolyzed AYESHA (test code = AYESHA) Braze Operator ID - BS Lab Interpretation Normal (test code = 18444-3) [facility] [id number] 15:53:00 Test Item Value Reference Range Interpretation Comments Triglycerides (test 129 mg/dL Specimen code = 2571-8) slightly hemolyzed Cholesterol (test 201 mg/dL Specimen code = 2093-3) slightly hemolyzed HDL (test code = 52 mg/dL 5-9) LDL Calculated (test 123 mg/dL code = 75511-3) AYESHA (test code = Triglyceride AYESHA) Reference Range: Low Risk <150 Borderline 150-199 High Risk 200-499 Very High Risk >=500 Cholesterol Reference Range: Low Risk <200 Borderline 200-239 High Risk >240 HDL Cholesterol Reference Range: Low Risk >=60 High Risk <40 LDL Cholesterol Reference Range: Optimal <100 Near Optimal 100-129 Borderline 130-159 High 160-189 Very High >=190 Braze Operator ID - BS [facility] function [id number] 15:53:00 Test Item Value Reference Range Interpretation Comments Protein, Total (test 7.4 See_Comment Specime n slightly code = 2885-2) hemolyzed [Automated message] The system which generated this result transmit gill reference range : 6.0 - 8.3 gm/dL . The reference range was not u sed to interpret th is result as normal/abnormal . Albumin (test code = 4.1 g/dL 3.5-5 Specime n slightly 82379-7) hemolyzed Total Bilirubin (test 1.0 mg/dL 0.2-1.2 Specim en slightly code = 1974-2) hemolyzed Bilirubin, Direct 0.4 mg/dL 0.1-0.5 Specimen s lightly (test code = 1967-7) hemolyz ed Alkaline Phosphatase 44 U/L 40-150 (test code = 6768-6) AST (test code = 31 U/L 5-34 Specimen sl ightly 1920-8) hemolyzed ALT (test code = 27 U/L 6-55 Specimen sl ightly 1742-6) hemolyzed AYESHA (test code = AYESHA) Braze Operator ID - BS Lab Interpretation Normal (test code = 04652-1) [facility] [id number] 15:53:00 Test Item Value Reference Range Interpretation Comments Triglycerides (test 129 mg/dL Specimen code = 2571-8) slightly hemolyzed Cholesterol (test 201 mg/dL Specimen code = 2093-3) slightly hemolyzed HDL (test code = 52 mg/dL 5-9) LDL Calculated (test 123 mg/dL code = 14202-0) AYESHA (test code = Triglyceride AYESHA) Reference Range: Low Risk <150 Borderline 150-199 High Risk 200-499 Very High Risk >=500 Cholesterol Reference Range: Low Risk <200 Borderline 200-239 High Risk >240 HDL Cholesterol Reference Range: Low Risk >=60 High Risk <40 LDL Cholesterol Reference Range: Optimal <100 Near Optimal 100-129 Borderline 130-159 High 160-189 Very High >=190 Braze Operator ID - BS [facility] function [id number] 15:53:00 Test Item Value Reference Range Interpretation Comments Protein, Total (test 7.4 See_Comment Specime n slightly code = 2885-2) hemolyzed [Automated message] The system which generated this result transmit gill reference range : 6.0 - 8.3 gm/dL . The reference range was not u sed to interpret th is result as normal/abnormal . Albumin (test code = 4.1 g/dL 3.5-5 Specime n slightly 51831-0) hemolyzed Total Bilirubin (test 1.0 mg/dL 0.2-1.2 [...] 1742-6) hemolyzed AYESHA (test code = AYESHA) Braze Operator ID - BS Lab Interpretation Normal (test code = 13717-0) [facility] [id number] 15:53:00 Test Item Value Reference Range Interpretation Comments TRIGLYCERIDES (BEAKER) 129 mg/dL Speci men slightly (test code = 540) hemolyzed CHOLESTEROL (BEAKER) 201 mg/dL Specime n slightly (test code = 631) hemolyzed HDL CHOLESTEROL (BEAKER) 52 mg/dL (test code = 976) LDL CHOLESTEROL 123 mg/dL CALCULATED (BEAKER) (test code = 633) Triglyceride Reference Range: Low Risk <150 Borderline 150-199 High Risk 200- 499 Very High Risk >=500Cholesterol Reference Range: Low Risk <200 Borderline 200-239 High Risk >240HDL Cholesterol Reference Range: Low Risk >=60 High Risk <40LDL Cholesterol Reference Range: Optimal <100 Near Optimal 100-129 Borderline 130-159 High 160-189 Very High >=190 Braze Operator ID - BSHEPATIC FUNCTION [id number] 15:53:00 Test Item Value Reference Range Interpretation [...] Specimen slightly (test code = 347) hemolyzed Braze Operator ID - BSEEG AWAKE AND [id number] 22:22:00Reason for exam:->seizureDATE OF TEST: 01/04/2020 DATE OF REPORT: 01/04/2020 ACC: [id number] Start time: 3:27 PM on 01/04/20 Stop time: 3:47 PM on 01/04/20 ICD-10: R56.9 CPT Code: 26940 HISTORY: 54 y/o RH F with PMHof astrocytoma s/p craniotomy and XRT with residual [...] and admixed faster frequencies over the left lncgoj-aparmx-dlkkrpf-parietal area. Moderate voltage 3 - 5 Hz [...] and admixed faster frequencies over the left mqukiq-dyyxsr-faageni-parietal area may represent a breach rhythm due tothe previous craniotomy and the focus of slow activity suggests the presence of an underlying structural pathology. There are no definite epileptiform discharges or electrographic seizures. Zen Townsend M.D. Epilepsy Fellow I have reviewed the electroencephalogram and this report and agree with its interpretation. Caprice Fisher M.D. 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 MEDICATIONS: clobazam, divalproex, gabapentin, metoprolol, methylphenidate. TECHNICAL SUMMARY:This is a digital video EEG recorded with 32 input channels reviewed with bipolar and referential montages using the modified combinatorial system nomenclature. DESCRIPTION OF RECORD: The background con sists of a mixture of alpha and theta frequencies with superimposed frontally predominant beta frequencies. The background is asymmetric with higher amplitudes and admixed faster frequencies over the left forfnn-bdmuot-ofcrlny-parietal area. Moderate voltage 3 - 5 Hz activity is present in that region. The EEG background is reactive. The occipital dominant rhythm is 9-10 Hz and well regulated. No sleep features were appreciated during the recording. PHOTIC STIMULATION: Flash stimulation was done from 1-33 Hz; no photic driving was seen; photoparoxysmal responses were absent. HV: Was not performed.EKG: NSR. IMPRESSION: This is an abnormal awake EEG due to higher amplitudes and faster frequencies over the left hemisphere in association with a focus of slow (theta) activity in that region. CLINICAL CORRELATION: The higher amplitudes and admixed faster frequencies over the left nixgbk-oabkfg-ehnelrg- parietal area may represent a breach rhythm due to the previous craniotomy and the focus of slow activity suggests the presence of an underlying structural pathology. There are no definite epileptiform discharges or electrographic seizures. Zen Townsend M.D. Epilepsy Fellow I have reviewed the e lectroencephalogram and this report and agree with its interpretation. Caprice Fisher M.D. [facility]ile[facility] Attending [facility] [id number] 22:22:00Interface, External Ris In - 01/04/2020 10:22 PM CDTDATE OF TEST: 01/04/2020 DATE OF REPORT: 01/04/2020 ACC: [id number] EE-1115 Start time: 3:27 PM on 01/04/20 Stop time: 3:47 PM on 01/04/20 ICD-10:R56.9 CPT Code: 80188 HISTORY: 54 y/o RH F with PMH of astrocytoma s/p craniotomy and XRT with residu al expressive aphasia and weakness who was brought in after "shaking" and noted worsening of her weakness. MEDICATIONS: clobazam, divalproex, gabapentin, metoprolol, methylphenidate. TECHNICAL SUMMARY:This is a digital video EEG recorded with 32 input channels reviewed with bipolar and referential montages using the modified combinatorial system nomenclature. DESCRIPTION OF RECORD: The background consists of a mixture of alpha and theta frequencies with superimposed frontally predominant beta frequencies. The background is asymmetric with higher amplitudes and admixed faster frequencies over the left jpitwh-bpvmfj-mvpigfd-parietal area. Moderate voltage 3 - 5 Hz [...] of slow (theta) activity in that region. CLINICALCORRELATION: The higher amplitudes and admixed faster frequencies over the left hufeao-qbxopv-akvbqxk- parietal area may represent a breach rhythm due to the previous craniotomy and the focus of slow activity suggests the presence of an underlying structural pathology. There are no definite epileptiform discharges or electrographic seizures. Zen Townsend M.D. Epilepsy Fellow I have reviewed the el ectroencephalogram and this report and agree with its interpretation. Caprice Fisher M.D. [facility]ilepsy Attending [facility] [id number] 22:22:00Interface, External Ris In - 01/04/2020 10:22 PM CDTDATE OF TEST: 01/04/2020 DATE OF REPORT: 01/04/2020 ACC: [id number] EE-1115 Start time: 3:27 PM on 01/04/20 Stop time: 3:47 PM on 01/04/20 ICD-10:R56.9 CPT Code: 84716 HISTORY: 54 y/o RH F with PMH of astrocytoma s/p craniotomy and XRT with residu al expressive aphasia and weakness who was brought in after "shaking" and noted worsening of her weakness. MEDICATIONS: clobazam, divalproex, gabapentin, metoprolol, methylphenidate. TECHNICAL SUMMARY:This is a digital video EEG recorded with 32 input channels reviewed with bipolar and referential montages using the modified combinatorial system nomenclature. DESCRIPTION OF RECORD: The background consists of a mixture of alpha and theta frequencies with superimposed frontally predominant beta frequencies. The background is asymmetric with higher amplitudes and admixed faster frequencies over the left msvpbm-qrglxj-iyvtwae-parietal area. Moderate voltage 3 - 5 Hz [...] of slow (theta) activity in that region. CLINICALCORRELATION: The higher amplitudes and admixed faster frequencies over the left rhwbyc-hgqujv-iopddur- parietal area may represent a breach rhythm due to the previous craniotomy and the focus of slow activity suggests the presence of an underlying structural pathology. There are no definite epileptiform discharges or electrographic seizures. Zen Townsend M.D. Epilepsy Fellow I have reviewed the el ectroencephalogram and this report and agree with its interpretation. Caprice Fisher M.D. 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 MEDICATIONS: clobazam, divalproex, gabapentin, metoprolol, methylphenidate. TECHNICAL SUMMARY:This is a digital video EEG recorded with 32 input channels reviewed with bipolar and referential montages using the modified combinatorial system nomenclature. DESCRIPTION OF RECORD: The background consists of a mixture of alpha and theta frequencies with superimposed frontally predominant beta frequencies. The background is asymmetric with higher amplitudes and admixed faster frequencies over the left agufwh-piuyjv-capybco-parietal area. Moderate voltage 3 - 5 Hz [...] of slow (theta) activity in that region. CLINICALCORRELATION: The higher amplitudes and admixed faster frequencies over the left zvqekt-wgsyhb-cvqqxnx- parietal area may represent a breach rhythm due to the previous craniotomy and the focus of slow activity suggests the presence of an underlying structural pathology. There are no definite epileptiform discharges or electrographic seizures. Zen Townsend M.D. Epilepsy Fellow I have reviewed the el ectroencephalogram and this report and agree with its interpretation. Caprice Fisher M.D. 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 MEDICATIONS: clobazam, divalproex, gabapentin, metoprolol, methylphenidate. TECHNICAL SUMMARY:This is a digital video EEG recorded with 32 input channels reviewed with bipolar and referential montages using the modified combinatorial system nomenclature. DESCRIPTION OF RECORD: The background consists of a mixture of alpha and theta frequencies with superimposed frontally predominant beta frequencies. The background is asymmetric with higher amplitudes and admixed faster frequencies over the left glwvpj-ehafpk-ouyqepu-parietal area. Moderate voltage 3 - 5 Hz [...] of slow (theta) activity in that region. CLINICALCORRELATION: The higher amplitudes and admixed faster frequencies over the left sfrluv-huopvp-kgkbfqw- parietal area may represent a breach rhythm due to the previous craniotomy and the focus of slow activity suggests the presence of an underlying structural pathology. There are no definite epileptiform discharges or electrographic seizures. Zen Townsend M.D. Epilepsy Fellow I have reviewed the el ectroencephalogram and this report and agree with its interpretation. Caprice Fisher M.D. 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 MEDICATIONS: clobazam, divalproex, gabapentin, metoprolol, methylphenidate. TECHNICAL SUMMARY:This is a digital video EEG recorded with 32 input channels reviewed with bipolar and referential montages using the modified combinatorial system nomenclature. DESCRIPTION OF RECORD: The background consists of a mixture of alpha and theta frequencies with superimposed frontally predominant beta frequencies. The background is asymmetric with higher amplitudes and admixed faster frequencies over the left unmtyu-zahxkm-ynosukg-parietal area. Moderate voltage 3 - 5 Hz [...] of slow (theta) activity in that region. CLINICALCORRELATION: The higher amplitudes and admixed faster frequencies over the left ffodat-koycbd-xlvstxz- parietal area may represent a breach rhythm due to the previous craniotomy and the focus of slow activity suggests the presence of an underlying structural pathology. There are no definite epileptiform discharges or electrographic seizures. Zen Townsend M.D. Epilepsy Fellow I have reviewed the el ectroencephalogram and this report and agree with its interpretation. Caprice Fisher M.D. Epilepsy Attending [facility], [id number] 20:55:00 Unlisted Reason for Exam - Click Yes and [...] 01/04/2020 20:55:02 MRI brain with and without [id number] 20:55:00Interface, External Ris In - 01/04/2020 8:57 PM CDTFINAL REPORT MR, BRAIN, WITH\\T\\ WITHOUT CONTRAST INDICATION: Unlisted Reason for Examhx of astrocytoma, now with worsening rightside weakness and dysarthria TECHNIQUE: Multiplanar, multisequence MR imaging of the brain prior to and following intravenous administration of contrast. COMPARISON: MRI 07/06/2017 FINDINGS: Intracranial: There is a new punctate focus of restricted diffusion within the left precentral gyrus. No acute intracranial hemorrhage. No hydrocephalus. Visualized intracranial flow voids are of normal course andcaliber. Stable postoperative changes of left frontal craniotomy [...] Signed: Leidy Enamorado Verified Date/Time: 01/04/2020 20:55:02 [facility] brain with and without [id number] 20:55:00 Interface, External Ris In - 01/04/2020 8:57 PM CDTFINAL REPORT MR, BRAIN, WITH\\T\\ WITHOUT CONTRAST INDICATION: Unlisted Reason for Examhx of astrocytoma, now with worsening rightside weakness and dysarthria TECHNIQUE: Multiplanar, multisequence MR [...] Signed: Leidy Enamorado Verified Date/Time: 01/04/2020 20:55:02 [facility] [id number] 20:55:00Interface, External Ris In - 01/04/2020 8:57 PM CDTFINAL REPORT MR, BRAIN, WITH\\T\\ WITHOUT CONTRAST INDICATION: Unlisted Reason for Examhx [...] intracranial flow voids are of normal course andcaliber. Stable postoperative changes of left frontal craniotomy [...] Signed: Leidy Enamorado Verified Date/Time: 01/04/2020 20:55:02 [facility] without [id number] 20:55:00Interface, External Ris In - 01/04/2020 8:57 PM CDTFINAL REPORT MR, BRAIN, WITH\\T\\ WITHOUT CONTRAST INDICATION: Unlisted Reason for Examhx [...] intracranial flow voids are of normal course andcaliber. Stable postoperative changes of left frontal craniotomy [...] Signed: Leidy Enamorado Verified Date/Time: 01/04/2020 20:55:02 [facility] without [id number] 20:55:00Interface, External Ris In - 01/04/2020 8:57 PM CDTFINAL REPORT MR, BRAIN, WITH\\T\\ WITHOUT CONTRAST INDICATION: Unlisted Reason for Examhx [...] intracranial flow voids are of normal course andcaliber. Stable postoperative changes of left frontal craniotomy [...] Signed: Leidy Enamorado Verified Date/Time: 01/04/2020 20:55:02 [facility] without [id number] 20:55:00Interface, External Ris In - 01/04/2020 8:57 PM CDTFINAL REPORT MR, BRAIN, WITH\\T\\ WITHOUT CONTRAST INDICATION: Unlisted Reason for Examhx [...] intracranial flow voids are of normal course andcaliber. Stable postoperative changes of left frontal craniotomy [...] Leidy Enamorado MDReport Verified Date/Time: 01/04/2020 20:55:02 [facility] [id number] 09:56:00 Test Item Value Reference Range Interpretation Comments Sodium (test code 139 meq/L 136-145 = 2951-2) Potassium (test 3.6 meq/L 3.5-5.1 code = 2823-3) Chloride (test 104 meq/L 98-107 code = 2075-0) CO2 (test code = 26 meq/L 22-29 2027-9) BUN (test code = 17 mg/dL 7-4-0) Creatinine (test 0.73 mg/dL 0.57-1.25 code = 2160-0) Glucose (test code 104 mg/dL 70-105 = 2345-7) Calcium (test code 9.2 mg/dL 8.4-10.2 = 21009-8) EGFR (test code = 83 mL/min/1.[place] [address]-6) NOT ACCURATE CREATININE CLEARANCE IN PREDICTING GLOMERULAR FILTRATION RATE . ESTIMATED GFR I S NOT APPLICABLE FOR DIALYSIS PATIEN TS. HODGE (test code = Braze Operator ID - APR AYESHA) CSpecimen slightly icteric [facility] metabolic [id number] 09:56:00 Test Item Value Reference Range Interpretation Comments Sodium (test code 139 meq/L 136-145 = 2951-2) Potassium (test 3.6 meq/L 3.5-5.1 code = 2823-3) Chloride (test 104 meq/L 98-107 code = 2075-0) CO2 (test code = 26 meq/L 2027-12) BUN (test code = 17 mg/dL 11-15 3094-0) Creatinine (test 0.73 mg/dL 0.57-1.25 code = 2160-0) Glucose (test code 104 mg/dL 70-105 = 2345-7) Calcium (test code 9.2 mg/dL 8.4-10.2 = 29589-8) EGFR (test code = 83 mL/min/1.[place] [address]-1) NOT ACCURATE CREATININE CLEARANCE IN PREDICTING GLOMERULAR FILTRATION RATE . ESTIMATED GFR I S NOT APPLICABLE FOR DIALYSIS PATIEN AYESHA (test code = Braze Operator ID - APR AYESHA) CSpecimen slightly icteric [facility] metabolic [id number] 09:56:00 Test Item Value Reference Range Interpretation Comments Sodium (test code 139 meq/L 136-145 = 2951-2) Potassium (test 3.6 meq/L 3.5-5.1 code = 2823-3) Chloride (test 104 meq/L 98-107 code = 2075-0) CO2 (test code = 26 meq/L 2027-) BUN (test code = 17 mg/dL 11-15 3094-0) Creatinine (test 0.73 mg/dL 0.57-1.25 code = 2160-0) Glucose (test code 104 mg/dL 70-105 = 2345-7) Calcium (test code 9.2 mg/dL 8.4-10.2 = 77330-7) EGFR (test code = 83 mL/min/1.[place] [address]-0) NOT ACCURATE CREATININE CLEARANCE IN PREDICTING GLOMERULAR FILTRATION RATE . ESTIMATED GFR I S NOT APPLICABLE FOR DIALYSIS PATIEN TS. HODGE (test code = Braze Operator ID - APR AYESHA) CSpecimen slightly icteric [facility] metabolic [id number] 09:56:00 Test Item Value Reference Range Interpretation Comments Sodium (test code 139 meq/L 136-145 = 2951-2) Potassium (test 3.6 meq/L 3.5-5.1 code = 2823-3) Chloride (test 104 meq/L 98-107 code = 2075-0) CO2 (test code = 26 meq/L 2027-12) BUN (test code = 17 mg/dL 11-15 3094-0) Creatinine (test 0.73 mg/dL 0.57-1.25 code = 2160-0) Glucose (test code 104 mg/dL 70-105 = 2345-7) Calcium (test code 9.2 mg/dL 8.4-10.2 = 71221-6) EGFR (test code = 83 mL/min/1.[place] [address]-6) NOT ACCURATE CREATININE CLEARANCE IN PREDICTING GLOMERULAR FILTRATION RATE . ESTIMATED GFR I S NOT APPLICABLE FOR DIALYSIS PATIEN AYESHA (test code = Braze Operator ID - APR AYESHA) CSpecimen slightly icteric [facility] metabolic [id number] 09:56:00 Test Item Value Reference Range Interpretation Comments Sodium (test code 139 meq/L 136-145 = 2951-2) Potassium (test 3.6 meq/L 3.5-5.1 code = 2823-3) Chloride (test 104 meq/L 98-107 code = 2075-0) CO2 (test code = 26 meq/L 2027-) BUN (test code = 17 mg/dL 11-15 3094-0) Creatinine (test 0.73 mg/dL 0.57-1.25 code = 2160-0) Glucose (test code 104 mg/dL 70-105 = 2345-7) Calcium (test code 9.2 mg/dL 8.4-10.2 = 99820-6) EGFR (test code = 83 mL/min/1.[place] [address]-8) NOT ACCURATE CREATININE CLEARANCE IN PREDICTING GLOMERULAR FILTRATION RATE . ESTIMATED GFR I S NOT APPLICABLE FOR DIALYSIS PATIEN AYESHA (test code = Braze Operator ID - APR AYESHA) CSpecimen slightly icteric [facility] metabolic [id number] 09:56:00 Test Item Value Reference Range Interpretation Comments Sodium (test code 139 meq/L 136-145 = 2951-2) Potassium (test 3.6 meq/L 3.5-5.1 code = 2823-3) Chloride (test 104 meq/L 98-107 code = 2075-0) CO2 (test code = 26 meq/L -8-9) BUN (test code = 17 mg/dL 7- 3094-0) Creatinine (test 0.73 mg/dL 0.57-1.25 code = 2160-0) Glucose (test code 104 mg/dL 70-105 = 2345-7) Calcium (test code 9.2 mg/dL 8.4-10.2 = 44101-8) EGFR (test code = 83 mL/min/1.[place] [address]-9) NOT ACCURATE CREATININE CLEARANCE IN PREDICTING GLOMERULAR FILTRATION RATE . ESTIMATED GFR I S NOT APPLICABLE FOR DIALYSIS PATIEN AYESHA (test code = Braze Operator ID - APR AYESHA) CSpecimen slightly icteric [facility] METABOLIC [id number] 09:56:00 Test Item Value Reference Range Interpretation [...] S NOT APPLICABLE FOR DIALYSIS PATIEN TS. Braze Operator ID - ULYSSES CSpecimen slightly ictericCBC with platelet count + automated [id number] 06:53:00 Test Item Value Reference Range Interpretation Comments WBC (test code = 6690-2) 8.8 See_Comment [A utomated message] The system [employer] generated this result transmitted ref erence range: 3.5 - 10 .5 K/L. The refe rence range was not u sed to interpret this result as normal/abnor mal. RBC (test code = 789-8) 4.04 See_Comment [Au tomated message] The system [employer] generated this result transmitted ref erence range: 3.93 - 5 .22 M/L. The refe rence range was not u sed to interpret this result as normal/abnor mal. MCHC (test code = 786-4) 33.3 See_Comment [A utomated message] The system [employer] generated this result transmitted ref erence range: [...] code = 194 See_Comment [Aut omated message] 947-3) The system [employer] generated this result transmitted ref erence range: 150 - 45 0 K/CU MM. The referen ce range was not u sed to interpret this result as normal/abnor mal. MPV (test code = 10.7 fL 9.4-12.3 53773-9) nRBC (test code = 413) 0 See_Comment [Aut omated message] The system [employer] generated this result transmitted ref erence range: [...] See_Comment [Aut omated message] 670) The system [employer] generated this result transmitted ref erence range: 1.56 - 6 .13 K/L. The refe rence range was not u sed to interpret this result as normal/abnor mal. # Lymphs (test code = 2.83 See_Comment [Auto mated message] 414) The system [employer] generated this result transmitted ref erence range: 1.18 - 3 .74 K/L. The refe rence range was not u sed to interpret this result as normal/abnor mal. # Monos (test code = 0.91 See_Comment H [Autom ated message] 415) The system [employer] generated this result transmitted ref erence range: 0.24 - 0 .36 K/L. The refe rence range was not u sed to interpret this result as normal/abnor mal. # Eos (test code = 416) 0.05 See_Comment [Au tomated message] The system [employer] generated this result transmitted ref erence range: 0.04 - 0 .36 K/L. The refe rence range was not u sed to interpret this result as normal/abnor mal. # Baso (test code = 417) 0.02 See_Comment [A utomated message] The system [employer] generated this result transmitted ref erence range: 0.01 - 0 .08 K/L. The refe rence range was not u sed to interpret this result as normal/abnor mal. Immature 0 % 0-1 Granulocytes-Relative (test code = 2801) Lab Interpretation (test Abnormal code = 22102-1) [facility] with platelet count + automated [id number] 06:53:00 Test Item Value Reference Range Interpretation Comments WBC (test code = 6690-2) 8.8 See_Comment [A utomated message] The system [employer] generated this result transmitted ref erence range: 3.5 - 10 .5 K/L. The refe rence range was not u sed to interpret this result as normal/abnor mal. RBC (test code = 789-8) 4.04 See_Comment [Au tomated message] The system [employer] generated this result transmitted ref erence range: 3.93 - 5 .22 M/L. The refe rence range was not u sed to interpret this result as normal/abnor mal. MCHC (test code = 786-4) 33.3 See_Comment [A utomated message] The system [employer] generated this result transmitted ref erence range: [...] See_Comment [Aut omated message] 777-3) The system [employer] generated this result transmitted ref erence range: 150 - 45 0 K/CU MM. The referen ce range was not u sed to interpret this result as normal/abnor mal. MPV (test code = 10.7 fL 9.4-12.3 61054-9) nRBC (test code = 413) 0 See_Comment [Aut omated message] The system [employer] generated this result transmitted ref erence range: [...] See_Comment [Aut omated message] 670) The system [employer] generated this result transmitted ref erence range: 1.56 - 6 .13 K/L. The refe rence range was not u sed to interpret this result as normal/abnor mal. # Lymphs (test code = 2.83 See_Comment [Auto mated message] 414) The system [employer] generated this result transmitted ref erence range: 1.18 - 3 .74 K/L. The refe rence range was not u sed to interpret this result as normal/abnor mal. # Monos (test code = 0.91 See_Comment H [Autom ated message] 415) The system [employer] generated this result transmitted ref erence range: 0.24 - 0 .36 K/L. The refe rence range was not u sed to interpret this result as normal/abnor mal. # Eos (test code = 416) 0.05 See_Comment [Au tomated message] The system [employer] generated this result transmitted ref erence range: 0.04 - 0 .36 K/L. The refe rence range was not u sed to interpret this result as normal/abnor mal. # Baso (test code = 417) 0.02 See_Comment [A utomated message] The system [employer] generated this result transmitted ref erence range: 0.01 - 0 .08 K/L. The refe rence range was not u sed to interpret this result as normal/abnor mal. Immature 0 % 0-1 Granulocytes-Relative (test code = 2801) Lab Interpretation (test Abnormal code = 22296-9) [facility] with platelet count + automated [id number] 06:53:00 Test Item Value Reference Range Interpretation Comments WBC (test code = 6690-2) 8.8 See_Comment [A utomated message] The system [employer] generated this result transmitted ref erence range: 3.5 - 10 .5 K/L. The refe rence range was not u sed to interpret this result as normal/abnor mal. RBC (test code = 789-8) 4.04 See_Comment [Au tomated message] The system [employer] generated this result transmitted ref erence range: 3.93 - 5 .22 M/L. The refe rence range was not u sed to interpret this result as normal/abnor mal. MCHC (test code = 786-4) 33.3 See_Comment [A utomated message] The system [employer] generated this result transmitted ref erence range: [...] See_Comment [Aut omated message] 777-3) The system [employer] generated this result transmitted ref erence range: 150 - 45 0 K/CU MM. The referen ce range was not u sed to interpret this result as normal/abnor mal. MPV (test code = 10.7 fL 9.4-12.3 37197-4) nRBC (test code = 413) 0 See_Comment [Aut omated message] The system [employer] generated this result transmitted ref erence range: [...] See_Comment [Aut omated message] 670) The system [employer] generated this result transmitted ref erence range: 1.56 - 6 .13 K/L. The refe rence range was not u sed to interpret this result as normal/abnor mal. # Lymphs (test code = 2.83 See_Comment [Auto mated message] 414) The system [employer] generated this result transmitted ref erence range: 1.18 - 3 .74 K/L. The refe rence range was not u sed to interpret this result as normal/abnor mal. # Monos (test code = 0.91 See_Comment H [Autom ated message] 415) The system [employer] generated this result transmitted ref erence range: 0.24 - 0 .36 K/L. The refe rence range was not u sed to interpret this result as normal/abnor mal. # Eos (test code = 416) 0.05 See_Comment [Au tomated message] The system [employer] generated this result transmitted ref erence range: 0.04 - 0 .36 K/L. The refe rence range was not u sed to interpret this result as normal/abnor mal. # Baso (test code = 417) 0.02 See_Comment [A utomated message] The system [employer] generated this result transmitted ref erence range: 0.01 - 0 .08 K/L. The refe rence range was not u sed to interpret this result as normal/abnor mal. Immature 0 % 0-1 Granulocytes-Relative (test code = 2801) Lab Interpretation (test Abnormal code = 02474-3) [facility] with platelet count + automated [id number] 06:53:00 Test Item Value Reference Range Interpretation Comments WBC (test code = 6690-2) 8.8 See_Comment [A utomated message] The system [employer] generated this result transmitted ref erence range: 3.5 - 10 .5 K/L. The refe rence range was not u sed to interpret this result as normal/abnor mal. RBC (test code = 789-8) 4.04 See_Comment [Au tomated message] The system [employer] generated this result transmitted ref erence range: 3.93 - 5 .22 M/L. The refe rence range was not u sed to interpret this result as normal/abnor mal. MCHC (test code = 786-4) 33.3 See_Comment [A utomated message] The system [employer] generated this result transmitted ref erence range: [...] See_Comment [Aut omated message] 777-3) The system [employer] generated this result transmitted ref erence range: 150 - 45 0 K/CU MM. The referen ce range was not u sed to interpret this result as normal/abnor mal. MPV (test code = 10.7 fL 9.4-12.3 74882-0) nRBC (test code = 413) 0 See_Comment [Aut omated message] The system [employer] generated this result transmitted ref erence range: [...] See_Comment [Aut omated message] 670) The system [employer] generated this result transmitted ref erence range: 1.56 - 6 .13 K/L. The refe rence range was not u sed to interpret this result as normal/abnor mal. # Lymphs (test code = 2.83 See_Comment [Auto mated message] 414) The system [employer] generated this result transmitted ref erence range: 1.18 - 3 .74 K/L. The refe rence range was not u sed to interpret this result as normal/abnor mal. # Monos (test code = 0.91 See_Comment H [Autom ated message] 415) The system [employer] generated this result transmitted ref erence range: 0.24 - 0 .36 K/L. The refe rence range was not u sed to interpret this result as normal/abnor mal. # Eos (test code = 416) 0.05 See_Comment [Au tomated message] The system [employer] generated this result transmitted ref erence range: 0.04 - 0 .36 K/L. The refe rence range was not u sed to interpret this result as normal/abnor mal. # Baso (test code = 417) 0.02 See_Comment [A utomated message] The system [employer] generated this result transmitted ref erence range: 0.01 - 0 .08 K/L. The refe rence range was not u sed to interpret this result as normal/abnor mal. Immature 0 % 0-1 Granulocytes-Relative (test code = 2801) Lab Interpretation (test Abnormal code = 34509-1) [facility] with platelet count + automated [id number] 06:53:00 Test Item Value Reference Range Interpretation Comments WBC (test code = 6690-2) 8.8 See_Comment [A utomated message] The system [employer] generated this result transmitted ref erence range: 3.5 - 10 .5 K/L. The refe rence range was not u sed to interpret this result as normal/abnor mal. RBC (test code = 789-8) 4.04 See_Comment [Au tomated message] The system [employer] generated this result transmitted ref erence range: 3.93 - 5 .22 M/L. The refe rence range was not u sed to interpret this result as normal/abnor mal. MCHC (test code = 786-4) 33.3 See_Comment [A utomated message] The system [employer] generated this result transmitted ref erence range: [...] See_Comment [Aut omated message] 777-3) The system [employer] generated this result transmitted ref erence range: 150 - 45 0 K/CU MM. The referen ce range was not u sed to interpret this result as normal/abnor mal. MPV (test code = 10.7 fL 9.4-12.3 75897-2) nRBC (test code = 413) 0 See_Comment [Aut omated message] The system [employer] generated this result transmitted ref erence range: [...] See_Comment [Aut omated message] 670) The system [employer] generated this result transmitted ref erence range: 1.56 - 6 .13 K/L. The refe rence range was not u sed to interpret this result as normal/abnor mal. # Lymphs (test code = 2.83 See_Comment [Auto mated message] 414) The system [employer] generated this result transmitted ref erence range: 1.18 - 3 .74 K/L. The refe rence range was not u sed to interpret this result as normal/abnor mal. # Monos (test code = 0.91 See_Comment H [Autom ated message] 415) The system [employer] generated this result transmitted ref erence range: 0.24 - 0 .36 K/L. The refe rence range was not u sed to interpret this result as normal/abnor mal. # Eos (test code = 416) 0.05 See_Comment [Au tomated message] The system [employer] generated this result transmitted ref erence range: 0.04 - 0 .36 K/L. The refe rence range was not u sed to interpret this result as normal/abnor mal. # Baso (test code = 417) 0.02 See_Comment [A utomated message] The system [employer] generated this result transmitted ref erence range: 0.01 - 0 .08 K/L. The refe rence range was not u sed to interpret this result as normal/abnor mal. Immature 0 % 0-1 Granulocytes-Relative (test code = 2801) Lab Interpretation (test Abnormal code = 62740-4) [facility] with platelet count + automated [id number] 06:53:00 Test Item Value Reference Range Interpretation Comments WBC (test code = 6690-2) 8.8 See_Comment [A utomated message] The system [employer] generated this result transmitted ref erence range: 3.5 - 10 .5 K/L. The refe rence range was not u sed to interpret this result as normal/abnor mal. RBC (test code = 789-8) 4.04 See_Comment [Au tomated message] The system [employer] generated this result transmitted ref erence range: 3.93 - 5 .22 M/L. The refe rence range was not u sed to interpret this result as normal/abnor mal. MCHC (test code = 786-4) 33.3 See_Comment [A utomated message] The system [employer] generated this result transmitted ref erence range: [...] code = 194 See_Comment [Aut omated message] 877-3) The system [employer] generated this result transmitted ref erence range: 150 - 45 0 K/CU MM. The referen ce range was not u sed to interpret this result as normal/abnor mal. MPV (test code = 10.7 fL 9.4-12.3 83052-0) nRBC (test code = 413) 0 See_Comment [Aut omated message] The system [employer] generated this result transmitted ref erence range: [...] See_Comment [Aut omated message] 670) The system [employer] generated this result transmitted ref erence range: 1.56 - 6 .13 K/L. The refe rence range was not u sed to interpret this result as normal/abnor mal. # Lymphs (test code = 2.83 See_Comment [Auto mated message] 414) The system [employer] generated this result transmitted ref erence range: 1.18 - 3 .74 K/L. The refe rence range was not u sed to interpret this result as normal/abnor mal. # Monos (test code = 0.91 See_Comment H [Autom ated message] 415) The system [employer] generated this result transmitted ref erence range: 0.24 - 0 .36 K/L. The refe rence range was not u sed to interpret this result as normal/abnor mal. # Eos (test code = 416) 0.05 See_Comment [Au tomated message] The system [employer] generated this result transmitted ref erence range: 0.04 - 0 .36 K/L. The refe rence range was not u sed to interpret this result as normal/abnor mal. # Baso (test code = 417) 0.02 See_Comment [A utomated message] The system [employer] generated this result transmitted ref erence range: 0.01 - 0 .08 K/L. The refe rence range was not u sed to interpret this result as normal/abnor mal. Immature 0 % 0-1 Granulocytes-Relative (test code = 2801) Lab Interpretation (test Abnormal code = 99630-9) [facility] W/PLT COUNT & AUTO [id number] 06:53:00 Test Item Value Reference Range Interpretation [...] = 2801) Urinalysis w/Microscopic + Reflex to [id number] 22:54:00 Test Item Value Reference Range Interpretation Comments Color, UA (test Yellow code = 5778-6) Clarity, UA (test Clear code = 5767-9) Specific [place], 1.017 1.001-1.035 UA (test code = 5811-5) pH, UA (test code 8.0 5.0-8.0 = 5803-2) Protein, UA (test Negative Negative code = 10291-6) Glucose, UA (test Negative Negative code = 365) Ketones, UA (test Negative Negative code = 2514-8) Bilirubin, UA Negative Negative (test code = 06518-0) Blood, UA (test Negative Negative code = 12015-6) Nitrite, UA (test Negative Negative code = 5802-4) Leukocytes, UA Negative Negative (test code = 5799-2) Urobilinogen, UA 0.2 mg/dL 0.2-1 (test code = 15736-3) RBC, UA (test 1 See_Comment [Automated me ssage] code = 05301-6) The system [facility] generated this result transmit gill reference range : /HPF. The refer ence range was not u sed to interpret th is result as normal/abnormal . WBC, UA (test 7 See_Comment [Automated me ssage] code = 5821-4) The system [facility] generated this result transmit gill reference range : /HPF. The refer ence range was not u sed to interpret th is result as normal/abnormal . Mucus (test code Rare = 8247-9) Squam Epithel, UA 1 See_Comment [Automate d message] (test code = The system [facility] 69253-3) generated this result transmit gill reference range : /HPF. The refer ence range was not u sed to interpret th is result as normal/abnormal . Specimen Source (test code = 2795) AYESHA (test code = Braze Operator ID - AYESHA) [auto]Braze Operator ID - tech [facility] w/Microscopic + Reflex to Culture 2020-01-03 22:54:00 Test Item Value Reference Range Interpretation Comments Color, UA (test Yellow code = 5778-6) Clarity, UA (test Clear code = 5767-9) Specific [place], 1.017 1.001-1.035 UA (test code = 5811-5) pH, UA (test code 8.0 5.0-8.0 = 5803-2) Protein, UA (test Negative Negative code = 96670-5) Glucose, UA (test Negative Negative code = 365) Ketones, UA (test Negative Negative code = 2514-8) Bilirubin, UA Negative Negative (test code = 59162-9) Blood, UA (test Negative Negative code = 86292-7) Nitrite, UA (test Negative Negative code = 5802-4) Leukocytes, UA Negative Negative (test code = 5799-2) Urobilinogen, UA 0.2 mg/dL 0.2-1 (test code = 08208-0) RBC, UA (test 1 See_Comment [Automated me ssage] code = 91718-9) The system [facility] generated this result transmit gill reference range : /HPF. The refer ence range was not u sed to interpret th is result as normal/abnormal . WBC, UA (test 7 See_Comment [Automated me ssage] code = 5821-4) The system [facility] generated this result transmit gill reference range : /HPF. The refer ence range was not u sed to interpret th is result as normal/abnormal . Mucus (test code Rare = 8247-9) Squam Epithel, UA 1 See_Comment [Automate d message] (test code = The system [facility] h [address]-6) generated this result transmit gill reference range : /HPF. The refer ence range was not u sed to interpret th is result as normal/abnormal . Specimen Source (test code = 2795) AYESHA (test code = Braze Operator ID - AYESHA) [auto]Braze Operator ID - [facility] + Reflex to Culture 2020-01-03 22:54:00 Test Item Value Reference Range Interpretation Comments Color, UA (test Yellow code = 5778-6) Clarity, UA (test Clear code = 5767-9) Specific [place], 1.017 1.001-1.035 UA (test code = 5811-5) pH, UA (test code 8.0 5.0-8.0 = 5803-2) Protein, UA (test Negative Negative code = 51653-2) Glucose, UA (test Negative Negative code = 365) Ketones, UA (test Negative Negative code = 2514-8) Bilirubin, UA Negative Negative (test code = 95440-1) Blood, UA (test Negative Negative code = 82605-0) Nitrite, UA (test Negative Negative code = 5802-4) Leukocytes, UA Negative Negative (test code = 5799-2) Urobilinogen, UA 0.2 mg/dL 0.2-1 (test code = 17685-0) RBC, UA (test 1 See_Comment [Automated me ssage] code = 18779-8) The system [facility] generated this result transmit gill reference range : /HPF. The refer ence range was not u sed to interpret th is result as normal/abnormal . WBC, UA (test 7 See_Comment [Automated me ssage] code = 5821-4) The system [facility] generated this result transmit gill reference range : /HPF. The refer ence range was not u sed to interpret th is result as normal/abnormal . Mucus (test code Rare = 8247-9) Squam Epithel, UA 1 See_Comment [Automate d message] (test code = The system [facility] h [address]-8) generated this result transmit gill reference range : /HPF. The refer ence range was not u sed to interpret th is result as normal/abnormal . Specimen Source (test code = 2795) AYESHA (test code = Braze Operator ID - AYESHA) [auto]Braze Operator ID - tech [facility] w/Microscopic + Reflex to Culture 2020-01-03 22:54:00 Test Item Value Reference Range Interpretation Comments Color, UA (test Yellow code = 5778-6) Clarity, UA (test Clear code = 5767-9) Specific [place], 1.017 1.001-1.035 UA (test code = 5811-5) pH, UA (test code 8.0 5.0-8.0 = 5803-2) Protein, UA (test Negative Negative code = 69079-7) Glucose, UA (test Negative Negative code = 365) Ketones, UA (test Negative Negative code = 2514-8) Bilirubin, UA Negative Negative (test code = 93733-4) Blood, UA (test Negative Negative code = 25464-3) Nitrite, UA (test Negative Negative code = 5802-4) Leukocytes, UA Negative Negative (test code = 5799-2) Urobilinogen, UA 0.2 mg/dL 0.2-1 (test code = 17926-7) RBC, UA (test 1 See_Comment [Automated me ssage] code = 12639-8) The system [facility] generated this result transmit gill reference range : /HPF. The refer ence range was not u sed to interpret th is result as normal/abnormal . WBC, UA (test 7 See_Comment [Automated me ssage] code = 5821-4) The system [facility] generated this result transmit gill reference range : /HPF. The refer ence range was not u sed to interpret th is result as normal/abnormal . Mucus (test code Rare = 8247-9) Squam Epithel, UA 1 See_Comment [Automate d message] (test code = The system [facility] h 616[address]-6) generated this result transmit gill reference range : /HPF. The refer ence range was not u sed to interpret th is result as normal/abnormal . Specimen Source (test code = 2795) AYESHA (test code = Braze Operator ID - AYESHA) [auto]Braze Operator ID - tech [facility] w/Microscopic + Reflex to Culture 2020-01-03 22:54:00 Test Item Value Reference Range Interpretation Comments Color, UA (test Yellow code = 5778-6) Clarity, UA (test Clear code = 5767-9) Specific [place], 1.017 1.001-1.035 UA (test code = 5811-5) pH, UA (test code 8.0 5.0-8.0 = 5803-2) Protein, UA (test Negative Negative code = 54045-3) Glucose, UA (test Negative Negative code = 365) Ketones, UA (test Negative Negative code = 2514-8) Bilirubin, UA Negative Negative (test code = 19229-3) Blood, UA (test Negative Negative code = 51443-1) Nitrite, UA (test Negative Negative code = 5802-4) Leukocytes, UA Negative Negative (test code = 5799-2) Urobilinogen, UA 0.2 mg/dL 0.2-1 (test code = 47581-3) RBC, UA (test 1 See_Comment [Automated me ssage] code = 29903-0) The system [facility] generated this result transmit gill reference range : /HPF. The refer ence range was not u sed to interpret th is result as normal/abnormal . WBC, UA (test 7 See_Comment [Automated me ssage] code = 5821-4) The system [facility] generated this result transmit gill reference range : /HPF. The refer ence range was not u sed to interpret th is result as normal/abnormal . Mucus (test code Rare = 8247-9) Squam Epithel, UA 1 See_Comment [Automate d message] (test code = The system [facility] 37344-2) generated this result transmit gill reference range : /HPF. The refer ence range was not u sed to interpret th is result as normal/abnormal . Specimen Source (test code = 2795) AYESHA (test code = Braze Operator ID - AYESHA) [auto]Braze Operator ID - tech [facility]URINALYSIS W/ REFLEX URINE [id number] 22:54:00 Test Item Value Reference Range Interpretation [...] = 516) SOURCE(BEAKER) (test code = 2795) Braze Operator ID - [auto]Braze Operator ID - ChristelRS-CoV2/RT-PCR (Symptomatic ONLY) 2020-01-03 21:57:00 Test Item Value Reference Range Interpretation Comments SARS-COV2/RT-PCR Negative Not Detected, (test code = Negative, See 25582-9) external report for linked test SARS-COV-2 [facility] PERFORMING LAB (test code = 00562-2) AYESHA (test code = Negative results do [...] of the Act. Fact Sheet for Healthcare Providers:https://www.[employer]/Documents/Xper t%20Xpress%20SARS%20CoV- 2/Fact%20Sheets/275-9782 %14OUFQ-QCT-2%20HEALTHCA RE%20PROVIDERS%20FACT%20 SHEET.pdf Fact Sheet for Healthcare Patients:https://www.Jellycoasterid.com/Documents/Xpert %20Xpress%20SARS%20CoV-2 /Fact%20Sheets/769-3801% 53VUUH-YFN-7%20PATIENT%2 0FACT%20SHEET.pdf Performing Laboratory:[facility] [facility].[place] [id number] [facility] (Symptomatic ONLY)2020-01-03 21:57:00 Test Item Value Reference Range Interpretation Comments SARS-COV2/RT-PCR Negative Not Detected, (test code = Negative, See 88158-6) external report for linked test SARS-COV-2 [facility] PERFORMING LAB (test code = 11096-7) AYESHA (test code = Negative results do [...] of the Act. Fact Sheet for Healthcare Providers:https://www.[employer]/Documents/Xper t%20Xpress%20SARS%20CoV- 2/Fact%20Sheets/872-8934 %65XLKR-LIV-5%20HEALTHCA RE%20PROVIDERS%20FACT%20 SHEET.pdf Fact Sheet for Healthcare Patients:https://www.[employer]/Documents/Xpert %20Xpress%20SARS%20CoV-2 /Fact%20Sheets/658-8042% 42QSGV-ZRB-1%20PATIENT%2 0FACT%20SHEET.pdf Performing Laboratory:[facility] [place] [address] [facility] (Symptomatic ONLY)2020-01-03 21:57:00 Test Item Value Reference Range Interpretation Comments SARS-COV2/RT-PCR Negative Not Detected, (test code = Negative, See 40964-7) external report for linked test SARS-COV-2 [facility] PERFORMING LAB (test code = 22668-3) AYESHA (test code = Negative results do [...] of the Act. Fact Sheet for Healthcare Providers:https://www.[employer]/Documents/Xper t%20Xpress%20SARS%20CoV- 2/Fact%20Sheets/302-3391 %83ANIQ-CSQ-8%20HEALTHCA RE%20PROVIDERS%20FACT%20 SHEET.pdf Fact Sheet for Healthcare Patients:https://www.[employer]ellyco[employer]id.[employer]/Documents/Xpert %20Xpress%20SARS%20CoV-2 /Fact%20Sheets/302-3869% 43WJED-LYK-1%20PATIENT%2 0FACT%20SHEET.pdf Performing Laboratory:[facility] [place] [address] [facility] (Symptomatic ONLY)2020-01-03 21:57:00 Test Item Value Reference Range Interpretation Comments SARS-COV2/RT-PCR Negative Not Detected, (test code = Negative, See 34564-3) external report for linked test SARS-COV-2 [facility] PERFORMING LAB (test code = 36773-7) AYESHA (test code = Negative results do [...] of the Act. Fact Sheet for Healthcare Providers:https://www.[employer]/Documents/Xper t%20Xpress%20SARS%20CoV- 2/Fact%20Sheets/3023802 %17BETN-ZHY-2%20HEALTHCA RE%20PROVIDERS%20FACT%20 SHEET.pdf Fact Sheet for Healthcare Patients:https://www.[employer]/Documents/Xpert %20Xpress%20SARS%20CoV-2 /Fact%20Sheets/3023801% 19DVUL-JOA-9%20PATIENT%2 0FACT%20SHEET.pdf Performing Laboratory:[facility] [place] [address] [facility] (Symptomatic ONLY)2020-01-03 21:57:00 Test Item Value Reference Range Interpretation Comments SARS-COV2/RT-PCR Negative Not Detected, (test code = Negative, See 57214-7) external report for linked test SARS-COV-2 [facility] PERFORMING LAB (test code = 02096-0) AYESHA (test code = Negative results do [...] of the Act. Fact Sheet for Healthcare Providers:https://www.[employer]/Documents/Xper t%20Xpress%20SARS%20CoV- 2/Fact%20Sheets/3023802 %05DOXA-NRL-6%20HEALTHCA RE%20PROVIDERS%20FACT%20 SHEET.pdf Fact Sheet for Healthcare Patients:https://www.[employer]/Documents/Xpert %20Xpress%20SARS%20CoV-2 /Fact%20Sheets/3023801% 11SASH-RRO-1%20PATIENT%2 0FACT%20SHEET.pdf Performing Laboratory:[facility], [place] [address] [place], [place] [address]ARS-COV2/RT-PCR ([facility])2020-01-03 21:57:00 Test Item Value Reference Range Interpretation Comments SARS-COV2/RT-PCR (test code Negative Not Detected, Negative, = 1831348) See external report for linked test SARS-COV-2 PERFORMING LAB [facility] (test code = 7059630) Negative results do not preclude SARS-CoV-2 infection [...] of the Act.Fact Sheet for Healthcare Pro viders:https://www.[employer]/Documents/Xpert%20Xpress%20SARS%20CoV-2/Fact%20Sh eets/302-3802%27CGKK-FPF-5%20HEALTHCARE%20PROVIDERS%20FACT%20SHEET.pdfFact Sheet for Healthcare Patients:https://www.[employer] id.[employer]/Documents/Xpert%20Xpress%20SARS%20CoV-2/Fact%20Sheets/302-3801%20SARS-COV -2%20PATIENT%20FACT%20SHEET.pdfPerforming Laboratory:[facility], [place] [address]TQ/[id number] 20:57:00 Test Item Value Reference Interpretation Comments [...] valves. Lab Interpretation Normal (test code = 58643-7) [facility]/[id number] 20:57:00 Test Item Value Reference Interpretation Comments Range Protime (test code = 12.8 See_Comment [Autom [employer] 5902-2) message] The system which generated this result transmitted reference range : 11.9 - 14.2 seconds. The reference range was not used to interpret this result as normal/abnormal . INR (test code = 0.99 See_Comment [Automated O[employer]ogic1-6) message] The system which generated this result [...] valves. Lab Interpretation Normal (test code = 63302-4) [facility]PT/[id number] 20:57:00 Test Item Value Reference Interpretation Comments Range Protime (test code = 12.8 See_Comment [Autom [employer] 5902-2) message] The system which generated this [...] valves. Lab Interpretation Normal (test code = 11466-0) [facility]PT/[id number] 20:57:00 Test Item Value Reference Interpretation Comments Range Protime (test code = 12.8 See_Comment [Autom ated 5902-2) message] The system which generated this result transmitted reference range : 11.9 - 14.2 seconds. The reference range was not used to interpret this result as normal/abnormal . INR (test code = 0.99 See_Comment [Automated O[employer]ic1-6) message] The system which generated this result [...] valves. Lab Interpretation Normal (test code = 30168-8) [facility][id number] 20:57:00 Test Item Value Reference Interpretation Comments [...] valves. Lab Interpretation Normal (test code = 67966-7) [facility]PROTHROMBIN TIME/[id number] 20:57:00 Test Item Value Reference Range Interpretation [...] is 2.5-3.5 for patients wiht mechanical heart valves.BASIC METABOLIC [id number] 20:35:00 Test Item Value Reference Range Interpretation [...] S NOT APPLICABLE FOR DIALYSIS PATIEN TS. Braze Operator ID - DBLactic acid, [id number] 20:31:00 Test Item Value Reference Range Interpretation Comments Lactate, Venous (test 1.60 mmol/L 0.5-2.2 Specim en code = 2872) markedly hemolyzed AYESHA (test code = AYESHA) Braze Operator ID - DB Lab Interpretation Normal (test code = 75713-2) [facility] [id number] 20:31:00 Test Item Value Reference Range Interpretation Comments Lactate, Venous (test 1.60 mmol/L 0.5-2.2 Specim en code = 2872) markedly hemolyzed AYESHA (test code = AYESHA) Braze Operator ID - DB Lab Interpretation Normal (test code = 60695-7) [facility], [id number] 20:31:00 Test Item Value Reference Range Interpretation Comments Lactate, Venous (test 1.60 mmol/L 0.5-2.2 Specim en code = 2872) markedly hemolyzed AYESHA (test code = AYESHA) Braze Operator ID - DB Lab Interpretation Normal (test code = 27467-0) [facility], [id number] 20:31:00 Test Item Value Reference Range Interpretation Comments Lactate, Venous (test 1.60 mmol/L 0.5-2.2 Specim en code = 2872) markedly hemolyzed AYESHA (test code = AYESHA) Braze Operator ID - DB Lab Interpretation Normal (test code = 05682-3) [facility], [id number] 20:31:00 Test Item Value Reference Range Interpretation Comments Lactate, Venous (test 1.60 mmol/L 0.5-2.2 Specim en code = 2872) markedly hemolyzed AYESHA (test code = AYESHA) Braze Operator ID - DB Lab Interpretation Normal (test code = 48194-6) [facility]LACT[facility] ACID, [id number] 20:31:00 Test Item Value Reference Range Interpretation Comments LACTATE BLOOD VENOUS 1.60 mmol/L 0.50-2.20 Specime n markedly (2) (BEAKER) (test hemolyzed code = 2872) Braze Operator ID - DBCBC W/PLT COUNT & AUTO [id number] 20:23:00 Test Item Value Reference Range Interpretation [...] = 2801) RAD, CHEST, 1 VIEW, NON [id number] 20:13:00Reason for exam:->feverShould this be performed at the bedside?->YesFINAL REPORT History: Fever. Comparison: 07/16/2017 Findings: A single view of the chest is submitted. The cardiomediastinal contours are unremarkable. There is no focal consolidation, pneumothorax, large pleural effusion or evidence of overt pulmonary edema. There is no acute bonyabnormality. Impression: No acute abnormality. Signed: Simran Sullivan Verified Date/Time: 01/03/2020 20:13:04 XR chest 1 view portable / [id number] 20:13:00Interface, External Ris In - 01/03/2020 8:15 PM CDTFINAL REPORT History: Fever. Comparison: 07/16/2017 Findings: A single view of the chest is submitted. The cardiomediastinal contours are unremarkable. There is no focal consolidation, pneumothorax, large pleural effusion or evidence of overt pulmonary edema. There is no acute bony abnormality. Impression: No acute abnormality. Signed: Simran Sullivan Verified Date/Time: 01/03/2020 20:13:04 [facility] / [id number] 20:13:00Interface, External Ris In - 01/03/2020 8:15 PM CDTFINAL REPORT History: Fever. Comparison: 07/16/2017 Findings: A single view of the chest is submitted. The cardiomediastinal contours are unremarkable. There is no focal consolidation, pneumothorax, large pleural effusion or evidence of overt pulmonary edema. There is no acute bony abnormality. Impression: No acute abnormality. Signed: Simran Sullivan Verified Date/Time: 01/03/2020 20:13:04 [facility] / [id number] 20:13:00Interface, External Ris In - 01/03/2020 8:15 PM CDTFINAL REPORT History: Fever. Comparison: 07/16/2017 Findings: A single view of the chest is submitted. The cardiomediastinal contours are unremarkable. There is no focal consolidation, pneumothorax, large pleural effusion or evidence of overt pulmonary edema. There is no acute bony abnormality. Impression: No acute abnormality. Signed: Simran Sullivan Verified Date/Time: 01/03/2020 20:13:04 [facility] / [id number] 20:13:00Interface, External Ris In - 01/03/2020 8:15 PM CDTFINAL REPORT History: Fever. Comparison: 07/16/2017 Findings: A single view of the chest is submitted. The cardiomediastinal contours are unremarkable. There is no focal consolidation, pneumothorax, large pleural effusion or evidence of overt pulmonary edema. There is no acute bony abnormality. Impression: No acute abnormality. Signed: Simran Sullivan Verified Date/Time: 01/03/2020 20:13:04 [facility] / [id number] 20:13:00Interface, External Ris In - 01/03/2020 8:15 PM CDTFINAL REPORT History: Fever. Comparison: 07/16/2017 Findings: A single view of the chest is submitted. The cardiomediastinal contours are unremarkable. There is no focal consolidation, pneumothorax, large pleural effusion or evidence of overt pulmonary edema. There is no acute bony abnormality. Impression: No acute abnormality. Signed: Simran Sullivan Verified Date/Time: 01/03/2020 20:13:04 [facility] PANEL 2018-08-27 22:39:00 Test Item Value Reference Range Interpretation Comments eGFR (test code = eGFR) 92 [facility]2019-05-02 22:39:00 Test Item Value Reference Range Interpretation Comments Calcium Lvl (test code = Calcium Lvl) 8.9 8.5-10.5 [facility]2019-05-02 22:39:00 Test Item Value Reference Range Interpretation Comments Creatinine Lvl (test code = Creatinine 0.75 0.50-1.40 Lvl) [facility]2019-05-02 22:39:00 Test Item Value Reference Range Interpretation Comments Sodium Lvl (test code = Sodium Lvl) 142 135-145 [facility]2019-05-02 22:39:00 Test Item Value Reference Range Interpretation Comments BUN (test code = BUN) 15 7-22 [facility]2019-05-02 22:39:00 Test Item Value Reference Range Interpretation Comments Chloride Lvl (test code = Chloride Lvl) 109 95-109 [facility]2019-05-02 22:39:00 Test Item Value Reference Range Interpretation Comments CO2 (test code = CO2) 25 24-32 [facility]2019-05-02 22:39:00 Test Item Value Reference Range Interpretation Comments Glucose Lvl (test code = Glucose Lvl) 154 70-99 [facility]2019-05-02 22:39:00 Test Item Value Reference Range Interpretation Comments Potassium Lvl (test code = Potassium 4.0 3.5-5.1 Lvl) [facility]2019-05-02 22:39:00 Test Item Value Reference Range Interpretation Comments AGAP (test code = AGAP) 12.0 10.0-20.0 [facility]NqwkewkTENBGLBLXW2289-07-19 22:39:00 Test Item Value Reference Range Interpretation Comments Hgb (test code = Hgb) 13.0 12.0-16.0 [facility] CypressWdlbpieYJXFIKAJKE8792-65-97 22:39:00 Test Item Value Reference Range Interpretation Comments Hct (test code = Hct) 39.2 36.0-48.0 [facility] CypressDgnovkoRXRDTQRKKQ6248-57-20 22:39:00 Test Item Value Reference Range Interpretation Comments MCV (test code = MCV) 98.3 80.0-98.0 [facility] CypressDemznepTNKRILYVHX3006-21-39 22:39:00 Test Item Value Reference Range Interpretation Comments MCH (test code = MCH) 32.7 pg 27.0-31.0 [facility] CypressWhjwqwaTZQHPFGCRC3929-59-77 22:39:00 Test Item Value Reference Range Interpretation Comments MCHC (test code = MCHC) 33.2 32.0-36.0 [facility] CypressJxcvgccUPSIUXPOLD8333-55-03 22:39:00 Test Item Value Reference Range Interpretation Comments RDW (test code = RDW) 13.2 11.5-14.5 [facility] CypressTscacapEDDWALGCXK7690-37-11 22:39:00 Test Item Value Reference Range Interpretation Comments MPV (test code = MPV) 8.2 7.4-10.4 [facility] CypressYwmufskLYFYHHJNMG0013-59-68 22:39:00 Test Item Value Reference Range Interpretation Comments Platelet (test code = Platelet) 171 133-450 [facility] CypressTmicivnLLNXHRMYBS7797-91-98 22:39:00 Test Item Value Reference Range Interpretation Comments WBC (test code = WBC) 5.9 3.7-10.4 [facility] CypressFpbaoujQDEBHTRPXH2459-15-54 22:39:00 Test Item Value Reference Range Interpretation Comments RBC (test code = RBC) 3.98 4.20-5.40 [facility] CypressRiqwtmaSWHLODNETM7603-43-58 22:39:00 Test Item Value Reference Range Interpretation Comments PTT (test code = PTT) 25.2 s 22.9-35.8 [facility] CypressFnnuvxuERJDAKSJSD3448-49-09 22:39:00 Test Item Value Reference Range Interpretation Comments PT (test code = PT) 12.7 s 12.0-14.7 [place] [id number] 22:39:00 Test Item Value Reference Range Interpretation Comments INR (test code = INR) 0.97 1 0.85-1.17 [place] 871949-05-02 22:39:00 Test Item Value Reference Range Interpretation Comments Basophils (test code = 0.1 See_Comment [Aut omated message] The Basophils) system which ge nerated this result tra nsmitted reference range : <=1.0. The reference r abdifatah was not used to int erpret this result as normal/abnormal . [facility] CypressAmfnkttAYYIIKWLKJ4938-99-76 22:39:00 Test Item Value Reference Range Interpretation Comments Monocytes # (test code 0.1 See_Comment [Aut omated message] The = Monocytes #) system which generated this result tra nsmitted reference range : <=0.8. The reference r abdifatah was not used to int erpret this result as normal/abnormal . [facility] CypressDzdqsqiQLSGLTUSJT6637-54-25 22:39:00 Test Item Value Reference Range Interpretation Comments Lymphocytes # (test code = Lymphocytes 0.7 1.0-5.5 #) [facility] CypressUvzemvhKRAXCFAPTU4835-49-54 22:39:00 Test Item Value Reference Range Interpretation Comments Neutrophils # (test code = Neutrophils 5.1 1.5-8.1 #) [facility] CypressEsaogvxERVGPVNRIU0728-80-30 22:39:00 Test Item Value Reference Range Interpretation Comments Eosinophils (test code = 0.1 See_Comment [A utomated message] The Eosinophils) system which ge nerated this result tra nsmitted reference range : <=4.0. The reference r abdifatah was not used to int erpret this result as normal/abnormal . [facility] CypressTndasekKKYFSMZHRK2323-44-68 22:39:00 Test Item Value Reference Range Interpretation Comments Lymphocytes (test code = Lymphocytes) 12.2 20.0-40.0 [facility] CypressNhlvnvaPHKRRFFTSU2070-84-71 22:39:00 Test Item Value Reference Range Interpretation Comments Monocytes (test code = Monocytes) 1.9 2.0-12.0 [facility] CypressRwpbxglZOVFHYTHWJ6593-14-51 22:39:00 Test Item Value Reference Range Interpretation Comments Segs (test code = Segs) 85.7 45.0-75.0 [facility]2019-05-02 22:39:00 Test Item Value Reference Range Interpretation Comments eGFR (test code = eGFR) 92 [facility]2019-05-02 22:39:00 Test Item Value Reference Range Interpretation Comments Calcium Lvl (test code = Calcium Lvl) 8.9 8.5-10.5 [facility]2019-05-02 22:39:00 Test Item Value Reference Range Interpretation Comments Creatinine Lvl (test code = Creatinine 0.75 0.50-1.40 Lvl) [facility]2019-05-02 22:39:00 Test Item Value Reference Range Interpretation Comments Sodium Lvl (test code = Sodium Lvl) 142 135-145 [facility]2019-05-02 22:39:00 Test Item Value Reference Range Interpretation Comments BUN (test code = BUN) 15 7-22 [facility]2019-05-02 22:39:00 Test Item Value Reference Range Interpretation Comments Chloride Lvl (test code = Chloride Lvl) 109 95-109 [facility]2019-05-02 22:39:00 Test Item Value Reference Range Interpretation Comments CO2 (test code = CO2) 25 24-32 [facility]2019-05-02 22:39:00 Test Item Value Reference Range Interpretation Comments Glucose Lvl (test code = Glucose Lvl) 154 70-99 [facility]2019-05-02 22:39:00 Test Item Value Reference Range Interpretation Comments Potassium Lvl (test code = Potassium 4.0 3.5-5.1 Lvl) [facility]2019-05-02 22:39:00 Test Item Value Reference Range Interpretation Comments AGAP (test code = AGAP) 12.0 10.0-20.0 [facility] CypressAfckdqyYPKSUVMHSQ6762-36-57 22:39:00 Test Item Value Reference Range Interpretation Comments Hgb (test code = Hgb) 13.0 12.0-16.0 [facility] CypressImdeovgEEFQDSUQVT7570-89-43 22:39:00 Test Item Value Reference Range Interpretation Comments Hct (test code = Hct) 39.2 36.0-48.0 [facility] CypressEniswzaBGTCMYPEVK0771-46-03 22:39:00 Test Item Value Reference Range Interpretation Comments MCV (test code = MCV) 98.3 80.0-98.0 [facility] CypressFabiwymQWVCJNDVLT1359-56-25 22:39:00 Test Item Value Reference Range Interpretation Comments MCH (test code = MCH) 32.7 pg 27.0-31.0 [facility] CypressAomyntjGQWLBRYKMX1488-29-98 22:39:00 Test Item Value Reference Range Interpretation Comments MCHC (test code = MCHC) 33.2 32.0-36.0 [facility] CypressHhbpkqyASECKRMOKR3308-18-59 22:39:00 Test Item Value Reference Range Interpretation Comments RDW (test code = RDW) 13.2 11.5-14.5 [facility] CypressVtxxeisTYPQAFPHME6890-39-85 22:39:00 Test Item Value Reference Range Interpretation Comments MPV (test code = MPV) 8.2 7.4-10.4 [facility] CypressFwdaedkZRVKTNSDZO4169-41-43 22:39:00 Test Item Value Reference Range Interpretation Comments Platelet (test code = Platelet) 171 133-450 [facility] CypressOrksdtlDLKUYQEBGT5182-79-44 22:39:00 Test Item Value Reference Range Interpretation Comments WBC (test code = WBC) 5.9 3.7-10.4 [facility] CypressPlsrymjOGAVMTGNQF8280-89-61 22:39:00 Test Item Value Reference Range Interpretation Comments RBC (test code = RBC) 3.98 4.20-5.40 [place] 871949-05-02 22:39:00 Test Item Value Reference Range Interpretation Comments PTT (test code = PTT) 25.2 s 22.9-35.8 [facility] CypressEqbmdgtINQWPZEQCF0355-26-31 22:39:00 Test Item Value Reference Range Interpretation Comments PT (test code = PT) 12.7 s 12.0-14.7 [facility] CypressQawcfqnXQGGCNPRMY4252-95-52 22:39:00 Test Item Value Reference Range Interpretation Comments INR (test code = INR) 0.97 1 0.85-1.17 [facility] CypressWgkronkICTDYPHBVG0995-71-39 22:39:00 Test Item Value Reference Range Interpretation Comments Basophils (test code = 0.1 See_Comment [Aut omated message] The Basophils) system which ge nerated this result tra nsmitted reference range : <=1.0. The reference r abdifatah was not used to int erpret this result as normal/abnormal . [facility] CypressHbxjffcDSSXTLEVNC2146-99-71 22:39:00 Test Item Value Reference Range Interpretation Comments Monocytes # (test code 0.1 See_Comment [Aut omated message] The = Monocytes #) system which generated this result tra nsmitted reference range : <=0.8. The reference r abdifatah was not used to int erpret this result as normal/abnormal . [facility] CypressMdtafulHXTKUJWXOD0676-31-03 22:39:00 Test Item Value Reference Range Interpretation Comments Lymphocytes # (test code = Lymphocytes 0.7 1.0-5.5 #) [facility]ZZ[facility]CC[facility]63[facility] 22:39:00 Test Item Value Reference Range Interpretation Comments Neutrophils # (test code = Neutrophils 5.1 1.5-8.1 #) [facility] CypressKiobgeuNRSTQKGQAC8522-79-77 22:39:00 Test Item Value Reference Range Interpretation Comments Eosinophils (test code = 0.1 See_Comment [A utomated message] The Eosinophils) system which ge nerated this result tra nsmitted reference range : <=4.0. The reference r abdifatah was not used to int erpret this result as normal/abnormal . [facility] CenterYgncicsNSZQQQQHRJ3998-45-63 22:39:00 Test Item Value Reference Range Interpretation Comments Lymphocytes (test code = Lymphocytes) 12.2 20.0-40.0 [facility] CenterZmtdcrsPSHXUAWPKU8624-54-29 22:39:00 Test Item Value Reference Range Interpretation Comments Monocytes (test code = Monocytes) 1.9 2.0-12.0 [facility] CenterCocxhtrEJBWJSXOYQ0761-60-59 22:39:00 Test Item Value Reference Range Interpretation Comments Segs (test code = Segs) 85.7 45.0-75.0 [facility] [id number] 16:02:00 Test Item Value Reference Range Interpretation Comments Antibody Scrn (test Negative (08/24/18 code = Antibody Scrn) 11:02 AM) [facility] [id number] 16:02:00 Test Item Value Reference Range Interpretation Comments ABO/Rh (test code = ABO/Rh) A POS [facility] QUYYCRJ1713-12-82 16:02:00 Test Item Value Reference Range Interpretation Comments Antibody Scrn (test Negative (08/24/18 code = Antibody Scrn) 11:02 AM) [facility] [id number] 16:02:00 Test Item Value Reference Range Interpretation Comments ABO/Rh (test code = ABO/Rh) A POS [facility] [facility]) [id number] 14:15:00 Test Item Value Reference Range Interpretation Comments eGFR (test code = eGFR) 102 [facility] [id number] 14:15:00 Test Item Value Reference Range Interpretation Comments BUN (test code = BUN) 23 7-22 [facility]2019-04-29 14:15:00 Test Item Value Reference Range Interpretation Comments Sodium Lvl (test code = Sodium Lvl) 147 135-145 [facility]2019-04-29 14:15:00 Test Item Value Reference Range Interpretation Comments Glucose Lvl (test code = Glucose Lvl) 90 70-99 [facility]2019-04-29 14:15:00 Test Item Value Reference Range Interpretation Comments Creatinine Lvl (test code = Creatinine 0.64 0.50-1.40 Lvl) [facility]2019-04-29 14:15:00 Test Item Value Reference Range Interpretation Comments Potassium Lvl (test code = Potassium 4.2 3.5-5.1 Lvl) [facility]2019-04-29 14:15:00 Test Item Value Reference Range Interpretation Comments Calcium Lvl (test code = Calcium Lvl) 9.4 8.5-10.5 [facility]2019-04-29 14:15:00 Test Item Value Reference Range Interpretation Comments Chloride Lvl (test code = Chloride Lvl) 110 95-109 [facility]2019-04-29 14:15:00 Test Item Value Reference Range Interpretation Comments CO2 (test code = CO2) 31 24-32 [facility]2019-04-29 14:15:00 Test Item Value Reference Range Interpretation Comments AGAP (test code = AGAP) 10.2 10.0-20.0 [facility] CypressAnolwfvHOPTDCOUMR5529-94-94 14:15:00 Test Item Value Reference Range Interpretation Comments INR (test code = INR) 0.91 1 0.85-1.17 [facility] CypressKqumpxqPVXVCFCBHW0037-42-12 14:15:00 Test Item Value Reference Range Interpretation Comments PT (test code = PT) 12.1 s 12.0-14.7 [facility] CypressSoeqhccGXMYALRWPY5545-62-61 14:15:00 Test Item Value Reference Range Interpretation Comments PTT (test code = PTT) 27.1 s 22.9-35.8 [facility] CypressUvwjkxdCVTWPQHNHB6650-08-52 14:15:00 Test Item Value Reference Range Interpretation Comments MPV (test code = MPV) 8.7 7.4-10.4 [facility] CypressXmxshsqITKKZCVTBT7879-15-78 14:15:00 Test Item Value Reference Range Interpretation Comments MCV (test code = MCV) 98.7 80.0-98.0 [facility] CypressBnrfllqVEKEIJPLTF0873-90-23 14:15:00 Test Item Value Reference Range Interpretation Comments Hct (test code = Hct) 44.7 36.0-48.0 [facility] CypressZjkfrdfAETWIAYTIB1811-07-01 14:15:00 Test Item Value Reference Range Interpretation Comments RBC (test code = RBC) 4.52 4.20-5.40 [facility] CypressYxlusucDPZSDFWHHD6222-17-07 14:15:00 Test Item Value Reference Range Interpretation Comments Platelet (test code = Platelet) 191 133-450 [facility] CypressRteqmfsTGEYOGQQYH2366-82-88 14:15:00 Test Item Value Reference Range Interpretation Comments RDW (test code = RDW) 13.7 11.5-14.5 [facility] CypressQjxonezTLJDSLQPRC1059-17-18 14:15:00 Test Item Value Reference Range Interpretation Comments Hgb (test code = Hgb) 15.0 12.0-16.0 [facility] CypressJjschclVXHLHHMNVE8101-28-08 14:15:00 Test Item Value Reference Range Interpretation Comments MCHC (test code = MCHC) 33.6 32.0-36.0 [facility] CypressPsyhyjwXFNYUCSDXV0550-83-41 14:15:00 Test Item Value Reference Range Interpretation Comments MCH (test code = MCH) 33.2 pg 27.0-31.0 [facility] CypressVhvziszAGWYGAXNGU1899-30-74 14:15:00 Test Item Value Reference Range Interpretation Comments WBC (test code = WBC) 6.3 3.7-10.4 [facility] CypressQctzdjxBYSIAYTSJJ5930-03-61 14:15:00 Test Item Value Reference Range Interpretation Comments Eosinophils # (test code 0.1 See_Comment [A utomated message] The = Eosinophils #) system whic h generated this result tra nsmitted reference range : <=0.5. The reference r abdifatah was not used to int erpret this result as normal/abnormal . [facility] CypressQszdhxlXGIJYWABJP4906-22-09 14:15:00 Test Item Value Reference Range Interpretation Comments Monocytes # (test code 0.6 See_Comment [Aut omated message] The = Monocytes #) system which generated this result tra nsmitted reference range : <=0.8. The reference r abdifatah was not used to int erpret this result as normal/abnormal . [facility] CypressDwwrzmeITFUMFXMXS6927-41-48 14:15:00 Test Item Value Reference Range Interpretation Comments Basophils (test code = 0.3 See_Comment [Aut omated message] The Basophils) system which ge nerated this result tra nsmitted reference range : <=1.0. The reference r abdifatah was not used to int erpret this result as normal/abnormal . [facility] CypressCwuusbcHKOLNMDUTJ9462-99-30 14:15:00 Test Item Value Reference Range Interpretation Comments Lymphocytes # (test code = Lymphocytes 1.9 1.0-5.5 #) [facility] CypressOeqaodwGPYQEUIVWM6907-91-74 14:15:00 Test Item Value Reference Range Interpretation Comments Neutrophils # (test code = Neutrophils 3.6 1.5-8.1 #) [facility] CypressEkfsftvUQWKMOOZRL6187-38-91 14:15:00 Test Item Value Reference Range Interpretation Comments Lymphocytes (test code = Lymphocytes) 30.2 20.0-40.0 [facility] CypressWzyzqobTIECXUNDRG5841-43-82 14:15:00 Test Item Value Reference Range Interpretation Comments Eosinophils (test code = 1.5 See_Comment [A utomated message] The Eosinophils) system which ge nerated this result tra nsmitted reference range : <=4.0. The reference r abdifatah was not used to int erpret this result as normal/abnormal . [facility] CypressGswcmfkVHHDPPTVII2744-73-83 14:15:00 Test Item Value Reference Range Interpretation Comments Segs (test code = Segs) 57.9 45.0-75.0 [facility] CypressUrxovxhDBYYDVJNJO1380-37-47 14:15:00 Test Item Value Reference Range Interpretation Comments Monocytes (test code = Monocytes) 10.1 2.0-12.0 [facility]2019-04-29 14:15:00 Test Item Value Reference Range Interpretation Comments eGFR (test code = eGFR) 102 [facility] [facility] 14:15:00 Test Item Value Reference Range Interpretation Comments BUN (test code = BUN) 23 7-22 [facility]2019-04-29 14:15:00 Test Item Value Reference Range Interpretation Comments Sodium Lvl (test code = Sodium Lvl) 147 135-145 [facility]2019-04-29 14:15:00 Test Item Value Reference Range Interpretation Comments Glucose Lvl (test code = Glucose Lvl) 90 70-99 [facility]2019-04-29 14:15:00 Test Item Value Reference Range Interpretation Comments Creatinine Lvl (test code = Creatinine 0.64 0.50-1.40 Lvl) [facility]2019-04-29 14:15:00 Test Item Value Reference Range Interpretation Comments Potassium Lvl (test code = Potassium 4.2 3.5-5.1 Lvl) [facility]2019-04-29 14:15:00 Test Item Value Reference Range Interpretation Comments Calcium Lvl (test code = Calcium Lvl) 9.4 8.5-10.5 [facility]2019-04-29 14:15:00 Test Item Value Reference Range Interpretation Comments Chloride Lvl (test code = Chloride Lvl) 110 95-109 [facility]2019-04-29 14:15:00 Test Item Value Reference Range Interpretation Comments CO2 (test code = CO2) 31 24-32 [facility]2019-04-29 14:15:00 Test Item Value Reference Range Interpretation Comments AGAP (test code = AGAP) 10.2 10.0-20.0 [id number] 14:15:00 Test Item Value Reference Range Interpretation Comments INR (test code = INR) 0.91 1 0.85-1.17 [facility]ressSiuqozlEOOUZCDYVZ8845-11-44 14:15:00 Test Item Value Reference Range Interpretation Comments PT (test code = PT) 12.1 s 12.0-14.7 [facility]re[id number] 14:15:00 Test Item Value Reference Range Interpretation Comments PTT (test code = PTT) 27.1 s 22.9-35.8 [facility]ressZxvbqxlNDGTPYJKDL8915-62-71 14:15:00 Test Item Value Reference Range Interpretation Comments MPV (test code = MPV) 8.7 7.4-10.4 [facility]ressGhpuebnMFLYOWQOFN8787-20-53 14:15:00 Test Item Value Reference Range Interpretation Comments MCV (test code = MCV) 98.7 80.0-98.0 [place] [id number] 14:15:00 Test Item Value Reference Range Interpretation Comments Hct (test code = Hct) 44.7 36.0-48.0 [id number] 14:15:00 Test Item Value Reference Range Interpretation Comments RBC (test code = RBC) 4.52 4.20-5.40 [facility]re[id number] 14:15:00 Test Item Value Reference Range Interpretation Comments Platelet (test code = Platelet) 191 133-450 [facility]ressEaetlgyWLVBBOPWTE7318-87-16 14:15:00 Test Item Value Reference Range Interpretation Comments RDW (test code = RDW) 13.7 11.5-14.5 [facility] CypressVbmypsfOJTYDMURAY4981-43-44 14:15:00 Test Item Value Reference Range Interpretation Comments Hgb (test code = Hgb) 15.0 12.0-16.0 [facility]ressE[id number] 14:15:00 Test Item Value Reference Range Interpretation Comments MCHC (test code = MCHC) 33.6 32.0-36.0 [facility]ressUutcrpgHUWPLCUNJE0252-87-86 14:15:00 Test Item Value Reference Range Interpretation Comments MCH (test code = MCH) 33.2 pg 27.0-31.0 [facility] CypressYknyxmvUODZPAGKIR4903-06-15 14:15:00 Test Item Value Reference Range Interpretation Comments WBC (test code = WBC) 6.3 3.7-10.4 [facility] CypressHzhjidiVOCGOFEGYB0231-03-65 14:15:00 Test Item Value Reference Range Interpretation Comments Eosinophils # (test code 0.1 See_Comment [A utomated message] The = Eosinophils #) system whic h generated this result tra nsmitted reference range : <=0.5. The reference r abdifatah was not used to int erpret this result as normal/abnormal . [facility] CypressUskmhxzHXCJRUTJRV0132-18-76 14:15:00 Test Item Value Reference Range Interpretation Comments Monocytes # (test code 0.6 See_Comment [Aut omated message] The = Monocytes #) system which generated this result tra nsmitted reference range : <=0.8. The reference r abdifatah was not used to int erpret this result as normal/abnormal . [facility] CypressVpbgfvkQSIRKLNBDL2741-37-97 14:15:00 Test Item Value Reference Range Interpretation Comments Basophils (test code = 0.3 See_Comment [Aut omated message] The Basophils) system which ge nerated this result tra nsmitted reference range : <=1.0. The reference r abdifatah was not used to int erpret this result as normal/abnormal . [facility] CypressWswatwiGBYGBRLBXZ2426-56-34 14:15:00 Test Item Value Reference Range Interpretation Comments Lymphocytes # (test code = Lymphocytes 1.9 1.0-5.5 #) [facility] CypressNjfbkagAPZSBSYEBF8498-98-83 14:15:00 Test Item Value Reference Range Interpretation Comments Neutrophils # (test code = Neutrophils 3.6 1.5-8.1 #) [facility] CypressNonclieVVOTPHBKPZ7963-05-64 14:15:00 Test Item Value Reference Range Interpretation Comments Lymphocytes (test code = Lymphocytes) 30.2 20.0-40.0 [facility] [id number] 14:15:00 Test Item Value Reference Range Interpretation Comments Eosinophils (test code = 1.5 See_Comment [A utomated message] The Eosinophils) system which ge nerated this result tra nsmitted reference range : <=4.0. The reference r abdifatah was not used to int erpret this result as normal/abnormal . [facility] CypressNnyextjNBOQVTVFBQ5292-78-10 14:15:00 Test Item Value Reference Range Interpretation Comments Segs (test code = Segs) 57.9 45.0-75.0 [facility] CypressLogwryoWHUXCRZMKC0202-32-76 14:15:00 Test Item Value Reference Range Interpretation Comments Monocytes (test code = Monocytes) 10.1 2.0-12.0 [facility] [id number] 10:39:00 Test Item Value Reference Interpretation Comments [...] = 13) >100,000 col/mL skin floraURINALYSIS W/ [id number] 09:01:00 Test Item Value Reference Range Interpretation [...] 1574) SOURCE(BEAKER) (test code = Urine, Voided 4347) URINE [id number] 05:37:00 Test Item Value Reference Range Interpretation Comments CULTURE (BEAKER) (test code = See comment 1095) <10,000 col/mL Gram Negative Rods>100,000 col/mL skin floraRAD, CHEST, 1 VIEW, NON [id number] 22:36:00Reason for exam:->Evaluate for infectionShould this be performed at the bedside?->YesFINAL REPORT INDICATION: Evaluate for infection COMPARISON: None TECHNIQUE: Sing le frontal view of the chest. FINDINGS: Lungs and pleura: Clear lungs. No effusion.Heart and mediastinum: Normal heart size. Unremarkable mediastinal contours.Osseous structures: No acute abnormality.Other: None. IMPRESSION: No acute intrathoracic abnormality. Signed: JR Rowland Robert MDReport Verified Date/Time: 07/16/2017 22:36:35 Reading Location: [facility] C013Y CT Body Reading Room MR, MRA, BRAIN, WITHOUT [id number] 21:33:00Reason for exam:->StrokeFINAL REPORT MRA head and neck Comparison: None Reason for exam: Stroke Discussion: 2 D and 3-D yapl-ar-cgjfjp MRA of the head and neck was provided with maximal intensity projection 3-D reconstructions of the cervical and intracranial arterial vasculatures. NASCET criteria are uti lized when considering stenosis. Normal flow cervical carotid systems and cervical segment vertebralarteries with no stenosis by NASCET criteria. Normal flow intracranial internal carotid arteries andin the carotid terminus branches proximally. Normal vertebrobasilar and proximal posterior cerebral artery flow. Impressions: Negative MRA neck and head. Signed: Sidney Cardoso Verified Date/Time: 07/16/2017 21:33:30 MR, MRA, NECK, WITHOUT IV [id number] 21:33:00Reason for exam:->StrokeFINAL REPORT MRA head and neck Comparison: None Reason for exam: Stroke Discussion: 2 D and 3-D tvet-tx-prqezh MRA of the head and neck was provided with maximal intensity projection 3-D reconstructions of the cervical and intracranial arterial vasculatures. NASCET criteria are utilized when considering stenosis. Normal flow cervical carotid systems and cervical segment vertebralarteries with no stenosis by NASCET criteria. Normal flow intracranial internal carotid arteries andin the carotid terminus branches proximally. Normal vertebrobasilar and proximal posterior cerebral artery flow. Impressions: Negative MRA neck and head. 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 Left frontal craniotomy changes arenoted. There is a large left-sided anterior and high frontal surgical cavity with surrounding gliosis and regional parenchymal atrophy. There are speckled foci of enhancement along the lateral and posterior aspect of the operated region. 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 There is no dominant masslike lesion. The current speckled enhancement is nonspecific and may be posttreatment in nature. No acute hematoma, hydrocephalus, midline shift, extra-axial collection. No other visible mass. No ischemic abnormal diffusion restriction. Flow-voids are seen in the basilar and internal carotid arteries aswell as in the large posterior dural sinuses. The pineal, sella, and craniocervical junction regionsare unremarkable. The visualized orbital contents, paranasal sinuses, skullbase and surrounding softtissues are unremarkable. 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 Without comparison imaging, this will be a baseline to which future imaging can be compared. Recommend serial MRI follow-up to evaluate stability. No specific evidence of acute abnormality. Signed: Sidney Cardoso Verified Date/Time: 07/16/2017 21:23:01 URINALYSIS W/ [id number] 19:13:00 Test Item Value Reference Range Interpretation [...] 516) SOURCE(BEAKER) (test code = Urine, Voided 3685) HEMOGLOBIN [id number] 14:29:00 Test Item Value Reference Range Interpretation Comments HEMOGLOBIN A1C (BEAKER) (test code = 5.4 % 4.3-6.1 368) VALPROIC ACID LEVEL, [id number] 12:47:00 Test Item Value Reference Range Interpretation [...] High 160-189 Very High >=190 FastingBASIC METABOLIC [id number] 02:44:00 Test Item Value Reference Range Interpretation [...] PATIEN TS. CBC W/PLT COUNT & AUTO [id number] 02:30:00 Test Item Value Reference Range Interpretation [...] PERCENT (BEAKER) (test code = 2801) SEDIMENTATION [id number] 22:54:00 Test Item Value Reference Range Interpretation Comments SEDIMENTATION RATE, ERYTHROCYTE 9 mm/HR 0-30 (BEAKER) (test code = 766) LIPID [id number] 21:50:00 Test Item Value Reference Range Interpretation Comments TRIGLYCERIDES (BEAKER) (test code = 130 mg/dL 540) CHOLESTEROL (BEAKER) (test code = 176 mg/dL 631) HDL CHOLESTEROL (BEAKER) (test code 53 mg/dL = 976) LDL CHOLESTEROL CALCULATED (BEAKER) 97 mg/dL (test code = 633) Triglyceride Reference Range: Low Risk <150 Borderline 150-199 High Risk 200- 499 Very High Risk >=500Cholesterol Reference Range: Low Risk <200 Borderline 200-239 High Risk >240HDL Cholesterol Reference Range: Low Risk >=60 High Risk <40LDL Cholesterol Reference Range: Optimal <100 Near Optimal 100-129 Borderline 130-159 High 160-189 Very High >=190VITAMIN B12 AND [id number] 20:18:00 Test Item Value Reference Range Interpretation Comments VITAMIN B12 ([place]) (test code = 580 pg/mL 213816 774) FOLATE ([place]) (test code = 362) 11.5 ng/mL >=7.0 TSH/FREE T4 IF [id number] 20:17:00 Test Item Value Reference Range Interpretation Comments THYROID STIMULATING HORMONE 1.88 uIU/mL 0.35-4.94 ([place]) (test code = 772)
[2022-04-03 19:15] LABS: Absolute Lymphocytes (CBC) 2.1 K/uL (0.7-4.9); Hematocrit 44.8 % (36.0-45.0); Lymphocytes % 37.8 % (15.3-44.8); MCV 87.1 fL (80-100); MPV 7.9 fL (7.6-11.3); RBC Red Blood Cell Count 5.15 M/uL (3.86-4.86)
[2022-04-03 19:19] LABS: Protime INR 0.92
[2022-04-03 19:33] LABS: Potassium 3.4 mmol/L (3.5-5.1)
--- NOTE | 2022-04-03 19:43 | RAD REPORT ---
EXAM DESCRIPTION: US - CP - 04/03/2022 7:04 pm CLINICAL HISTORY: neck pain, left side COMPARISON: Thyroid Para Parotid Gland dated 03/07/2016 TECHNIQUE: Real-time sonographic evaluation of bilateral carotid and vertebral systems was performed . Rodriguez scale and Doppler interrogation were performed with waveform tracing bilaterally. FINDINGS: Normal high resistance waveforms are noted in both external carotid arteries. The common c arotid arteries and internal carotid arteries show normal low resistance waveforms. Minimal plaquing changes are seen. Visually there is no significant luminal narrowing. Peak systolic and end diastolic velocity values and the ICA/CCA ratios are in the non-hemodynamically significant r abdifatah. Antegrade flow seen in both vertebral arteries. Velocity values and ratios were recorded and are retained in the patient's imaging records. IMPRESSION: No significant atherosclerotic changes noted. No evidence of a hemodynamically significant stenosis.
[2022-04-03 20:38] LABS: Troponin High Sensitivity 5.2 pg/mL (<58.9)
--- NOTE | 2022-04-03 21:04 | RAD REPORT ---
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 Sagittal and axial reconstruction images were generated using MIP technique and revi ewed. Additional delayed images were acquired to obtain venous sinus opacification. All CT scans are performed using dose optimization technique as appropriate and may include automated exposure control or mA/KV adjustment according to patient size. COMPARISON: Carotid ultrasound same date FINDINGS: Carotid and vertebral arteries show no atherosclerotic change. No luminal narrowing ident ified. No carotid or vertebral dissection. No aortic arch or great vessel origin abnormality seen. Vertebral artery origins unremarkable as well . No stenosis, vasculitis or other significant carotid artery finding. No focal abnormality of either vertebral artery. Basilar artery is normal. Medial portions of the each subclavian artery unremarkab le as well. Provided history indicates "Neck vein grafts" . No further information is available. Patient does hav e numerous surgical clips in the mid bilateral neck anterior to the sternocleidomastoid muscles on th e right and in the left submandibular gland surgical bed. The bilateral internal and external jugular veins are patent. Additional smaller veins in the neck ar e identifiable and show no thrombus or suspicious finding. No vascular malformation is identified. Bi lateral subclavian veins are patent. The paraspinal veins unremarkable as well. No soft tissue mass or lymphadenopathy. A few small sub centimeter thyroid nodules are present. Parot id glands are unremarkable. Right submandibular gland is normal in appearance. Left submandibular gla nd is absent. No pharyngeal mucosal mass or asymmetry seen. No tonsil or tongue base abnormality. Epiglottis and la ryngeal structures show no suspicious findings. C6-7 disc space narrowing and endplate spurring roy es are present. IMPRESSION: Cervical arterial and venous vessels show no suspicious or unexpected finding. Postsurgical changes are seen in the neck. No lymphadenopathy, mass or other suspicious finding ident ifiable.
--- NOTE | 2022-04-03 21:04 | RAD REPORT ---
EXAM DESCRIPTION: RAD - Chest Single View - 04/03/2022 8:58 pm CLINICAL HISTORY: DYSPNEA COMPARISON: Portable 01/02/2021 TECHNIQUE: AP portable chest image was obtained 04/03/2022 8:58 pm . FINDINGS: Chronic interstitial lung pattern matches comparison. No peripheral mass or consolidation. Significant failure or volume overload are not suspected. Heart and vasculature are normal. No measu rable pleural effusion and no pneumothorax. No acute bony abnormality seen. No acute aortic findings suspected. IMPRESSION: No acute cardiopulmonary process.
--- NOTE | 2022-04-03 21:25 | ER ---
Nurse's Notes [facility] Name: Deborah Garcia Age: 57 yrs Sex: Female : 1965 Arrival Date: 04/03/2022 Time: 17:57 Bed 25 Private MD: Diagnosis: Strain of muscle, fascia and tendon at neck level, initial encounter;Hypokalemia;Hypercalcemia Presentation: 04/03 17:58 Chief complaint: Patient states: Was driving back into town from [place] when had a vg1 sudden onset of difficulty breathing. Pt c/o of "my veins hurt on my neck" Pt continues to touch left side of neck. Coronavirus screen: Vaccine status: Patient reports receiving the 2nd dose of the covid vaccine. Client denies travel out of the [place] in the last 14 days. Ebola Screen: Patient negative for fever greater than or equal to 101.5 degrees Fahrenheit, and additional compatible Ebola Virus Disease symptoms Patient denies exposure to infectious person. Initial Sepsis Screen: Does the patient meet any 2 criteria? RR > 20 per min. HR > 90 bpm. No. Patient's initial sepsis screen is negative. Does the patient have a suspected source of infection? No. Patient's initial sepsis screen is negative. Risk Assessment: Do you want to hurt yourself or someone else?. Onset of symptoms was April 03, 2022. 17:58 Method Of Arrival: Wheelchair vg1 17:58 Acuity: JULIO 3 vg1 Triage Assessment: 18:06 General: Appears distressed, uncomfortable, Behavior is anxious. Pain: Complains of vg1 pain in neck. Respiratory: Reports shortness of breath at rest Onset: The symptoms/episode began/occurred just prior to arrival, the patient has mild shortness of breath. Historical: - Allergies: 18:06 Unknown IV antibiotic; vg1 - Home Meds: 19:11 clobazam 5 mg Oral tab twice a day [Active]; divalproex 250 mg Oral Tb24 [Active]; em6 gabapentin 100 mg Oral cap [Active]; lisinopril-hydrochlorothiazide 20-12.5 mg Oral tab 1 tab once daily [Active]; methylphenidate HCl 20 mg Oral tab 1 tab 2 times per day [Active]; metoprolol tartrate 25 mg Oral tab 1 tab 2 times per day [Active]; Onfi 5 mg Oral tab 2 times per day [Active]; Ritalin 20 mg Oral tab 1 tab 2 times per day [Active]; - PMHx: 18:06 Aphasia; BRAIN TUMOR; Colitis; Hypertension; R sided deficits; vg1 - Immunization history:: Client reports receiving the 2nd dose of the Covid vaccine. - Social history:: Smoking status: Patient denies any tobacco usage or history of. - Family history:: not pertinent. - Hospitalizations: : No recent hospitalization is reported. Screenin:15 Abuse screen: Denies threats or abuse. Nutritional screening: No deficits noted. em6 Tuberculosis screening: No symptoms or risk factors identified. Fall Risk Total Wheeler Fall Scale indicates No Risk (0-24 pts). Assessment: 18:15 General: Appears in no apparent distress. Behavior is cooperative. Pain: Complains of em6 pain in neck Pain does not radiate. Pain currently is 6 out of 10 on a pain scale. Quality of pain is described as pulsating. Neuro: Level of Consciousness is awake, alert, obeys commands, Oriented to person, place, time, situation. Cardiovascular: Patient's skin is warm and dry. Rhythm is sinus rhythm. Respiratory: Airway is patent Respiratory effort is even, unlabored, Breath sounds are clear bilaterally. GI: No signs and/or symptoms were reported involving the gastrointestinal system. : No signs and/or symptoms were reported regarding the genitourinary system. EENT: No signs and/or symptoms were reported regarding the EENT system. Derm: patient complains of spasm in the left side of neck. provider notified. 19:15 Reassessment: Patient appears in no apparent distress at this time. No changes from em6 previously documented assessment. Patient and/or family updated on plan of care and expected duration. Pain level reassessed. Patient is alert, oriented x 3, equal unlabored respirations, skin warm/dry/pink. 20:15 Reassessment: Patient appears in no apparent distress at this time. No changes from em6 previously documented assessment. Patient and/or family updated on plan of care and expected duration. Pain level reassessed. Patient is alert, oriented x 3, equal unlabored respirations, skin warm/dry/pink. 21:15 Reassessment: Patient appears in no apparent distress at this time. No changes from em6 previously documented assessment. Patient and/or family updated on plan of care and expected duration. Pain level reassessed. Patient is alert, oriented x 3, equal unlabored respirations, skin warm/dry/pink. Vital Signs: 17:58 BP 155 / 88; Pulse 113; Resp 24; Temp 97.7; Pulse Ox 100% ; Weight 56.7 kg; Pain 9/10; vg1 18:55 BP 147 / 90; Pulse 92; Resp 25; Pulse Ox 100% on R/A; em6 20:00 BP 132 / 89; Pulse 80; Resp 18; Pulse Ox 100% on R/A; em6 22:00 BP 136 / 78; Pulse 84; Resp 20; Pulse Ox 100% on R/A; em6 ED Course: 17:57 Patient arrived in ED. rg4 18:00 Raúl Howard MD is Attending Physician. rn 18:06 Triage completed. vg1 18:06 Arm band placed on. vg1 18:11 Nirali Gray, RN is Primary Nurse. em6 18:15 Bed in low position. Call light in reach. Side rails up X2. ekg monitor on. Pulse em6 ox on. NIBP on. Warm blanket given. 18:20 Inserted saline lock: 22 gauge in left forearm, using aseptic technique. Blood em6 collected. by oralia. 19:05 Carotid Artery Bilateral US In Process Unspecified. EDMS 19:07 Attending Physician role handed off by Raúl Howard MD ila 19:07 Marcelo Becerra MD is Attending Physician. ila 20:49 CT Neck Angio In Process Unspecified. EDMS 21:00 Chest Single View XRAY In Process Unspecified. EDMS 22:01 No provider procedures requiring assistance completed. em6 22:09 IV discontinued, intact, bleeding controlled, No redness/swelling at site. Pressure em6 dressing applied. Administered Medications: 19:03 Drug: morphine 4 mg Route: IVP; Infused Over: 4 mins; Site: left forearm; em6 20:54 Follow up: Response: No adverse reaction; RASS: Alert and Calm (0) em6 19:03 Drug: Zofran (Ondansetron) 4 mg Route: IVP; Site: left forearm; em6 20:00 Follow up: Response: No adverse reaction em6 22:09 Drug: Ondansetron 4 mg Route: PO; em6 22:09 Follow up: Response: No adverse reaction em6 Medication: 22:01 VIS not applicable for this client. em6 Outcome: 21:25 Discharge ordered by . ila 22:01 Condition: stable em6 22:09 Discharged to home via wheelchair. em6 22:09 Discharge instructions given to patient, family, Instructed on discharge instructions, follow up and referral plans. medication usage, Demonstrated understanding of instructions, follow-up care, medications, Prescriptions given X 1. 22:09 Patient left the ED. em6 Signatures: Dispatcher [employer] EDMS Marcelo Becerra MD MD cha Nieto, Roman, MD MD rn Garcia, Rubi rg4 Beatris Salmeron RN RN vg1 Nirali Gray RN RN em6 Corrections: (The following items were deleted from the chart) 18:07 18:06 Allergies: No Known Allergies; vg1 vg1 20:54 20:00 Response: No adverse reaction em6 em6
--- NOTE | 2022-04-03 21:26 | EDPHYS ---
Physician Documentation [facility] Name: Deborah Garcia Age: 57 yrs Sex: Female : 1965 Arrival Date: 04/03/2022 Time: 17:57 Bed 25 Private MD: ANDREW Physician Marcelo Becerra HPI: 04/03 18:07 This 57 yrs old Female presents to ER via Wheelchair with complaints of neck pain. rn 18:07 The patient has shortness of breath at rest. Onset: The symptoms/episode began/occurred rn 30 minute(s) ago. Duration: The symptoms are continuous. The patient's shortness of breath is aggravated by nothing, is alleviated by nothing. Associated signs and symptoms: Pertinent negatives: chest pain, fever, hemoptysis. Severity of symptoms: At their worst the symptoms were moderate in the emergency department the symptoms are unchanged. The patient has not experienced similar symptoms in the past. The patient has been recently seen by a physician:. Family reports extensive brain surgery with skin flaps as well as venous grafts to neck to feed skin grafts of scalp. Had sudden onset left neck pain driving home prior to arrival 30 min ago. No trauma. no fever. Family reports known speech impediment . Historical: - Allergies: 18:06 Unknown IV antibiotic; vg1 - Home Meds: 19:11 clobazam 5 mg Oral tab twice a day [Active]; divalproex 250 mg Oral Tb24 [Active]; em6 gabapentin 100 mg Oral cap [Active]; lisinopril-hydrochlorothiazide 20-12.5 mg Oral tab 1 tab once daily [Active]; methylphenidate HCl 20 mg Oral tab 1 tab 2 times per day [Active]; metoprolol tartrate 25 mg Oral tab 1 tab 2 times per day [Active]; Onfi 5 mg Oral tab 2 times per day [Active]; Ritalin 20 mg Oral tab 1 tab 2 times per day [Active]; - PMHx: 18:06 Aphasia; BRAIN TUMOR; Colitis; Hypertension; R sided deficits; vg1 - Immunization history:: Client reports receiving the 2nd dose of the Covid vaccine. - Social history:: Smoking status: Patient denies any tobacco usage or history of. - Family history:: not pertinent. - Hospitalizations: : No recent hospitalization is reported. ROS: 18:07 Constitutional: Negative for fever, chills, and weight loss, Eyes: Negative for injury, rn pain, redness, and discharge, Neck: + left neck pain Cardiovascular: Negative for chest pain, palpitations, and edema, Respiratory: Negative for shortness of breath, cough, wheezing, and pleuritic chest pain, Abdomen/GI: Negative for abdominal pain, nausea, vomiting, diarrhea, and constipation, Back: Negative for injury and pain, MS/Extremity: Negative for injury and deformity, Skin: Negative for injury, rash, and discoloration, Neuro: Negative for headache, weakness, numbness, tingling, and seizure. Exam: 18:07 Constitutional: This is a well developed, well nourished patient who is awake, alert, rn appears uncomfortable, rubbing left neck Head/Face: Normocephalic, atraumatic. Neck: + equal carotid pulses, no expanding masses, trachea midline, no crepitus. Cardiovascular: Tachycardic, regular. No pulse deficits. Respiratory: No increased work of breathing, no retractions or nasal flaring. Skin: No cyanosis MS/ Extremity: Pulses equal, no cyanosis. Neuro: Awake and alert, GCS 15, at baseline per family, difficulty with expressive speech. Strength equal bilaterally. 21:12 ECG was reviewed by the Attending Physician. ila Vital Signs: 17:58 BP 155 / 88; Pulse 113; Resp 24; Temp 97.7; Pulse Ox 100% ; Weight 56.7 kg; Pain 9/10; vg1 18:55 BP 147 / 90; Pulse 92; Resp 25; Pulse Ox 100% on R/A; em6 20:00 BP 132 / 89; Pulse 80; Resp 18; Pulse Ox 100% on R/A; em6 22:00 BP 136 / 78; Pulse 84; Resp 20; Pulse Ox 100% on R/A; em6 MDM: 18:00 Patient medically screened. rn 20:05 Differential diagnosis: Anemia Bronchitis CHF exacerbation, Myocardial Infarction ila pulmonary edema, reactive airway disease. Antibiotic administration: Not indicated. The patient's Wells Deep Vein Thrombosis Score was calculated as follows: Total Score: 0-2 Pts- Low Risk. The patient's pulmonary embolism risk score was calculated as follows: Total Score: 0-2 points. This patient was found to be at low risk for a pulmonary embolism by using the Well's assessment criteria. Immunization status: Influenza vaccine: Data reviewed: vital signs, nurses notes, lab test result(s), EKG, radiologic studies, CT scan, doppler, plain films. Data interpreted: kiln packer: rate is 92 beats/min, rhythm is regular, Pulse oximetry: on room air is 100 %. Test interpretation: by ED physician or midlevel provider: ECG, plain radiologic studies. Counseling: I had a detailed discussion with the patient and/or guardian regarding: the historical points, exam findings, and any diagnostic results supporting the discharge/admit diagnosis, lab results, radiology results, the need for outpatient follow up, for definitive care, a neurologist. 04/03 18:06 Order name: CBC with Diff; Complete Time: 19:24 rn 04/03 18:06 Order name: Basic Metabolic Panel; Complete Time: 20:00 rn 04/03 18:06 Order name: Protime (+inr); Complete Time: 19:24 rn 04/03 18:06 Order name: Ptt, Activated; Complete Time: 19:24 rn 04/03 20:05 Order name: Troponin High Sensitivity; Complete Time: 21:13 [facility] 04/03 20:05 Order name: BNP; Complete Time: 21:13 [facility] 04/03 18:06 Order name: IV Start; Complete Time: 19:03 rn 04/03 18:06 Order name: Carotid Artery Bilateral US; Complete Time: 20:00 rn 04/03 18:06 Order name: CT Neck Angio; Complete Time: 21:13 rn 12 20:05 Order name: EKG; Complete Time: 20:06 [facility] 04/03 20:05 Order name: Chest Single View XRAY; Complete Time: 21:13 [facility] 04/03 18:48 Order name: Labs - recollect needed: recollect all tubes; Complete Time: 19:03 bd 04/03 20:05 Order name: EKG - Nurse/Tech; Complete Time: 21:05 ila 04/03 20:07 Order name: PO challenge: JUICE; Complete Time: 20:14 [facility] EC:12 Rate is 83 beats/min. Rhythm is regular. QRS [place] is Normal. [place] interval is normal. QRS ila interval is normal. QT interval is normal. No Q waves. T waves are Normal. No ST changes noted. Clinical impression: Normal ECG and No evidence of ischemia. Interpreted by me. Reviewed by me. Administered Medications: 19:03 Drug: morphine 4 mg Route: IVP; Infused Over: 4 mins; Site: left forearm; em6 20:54 Follow up: Response: No adverse reaction; RASS: Alert and Calm (0) em6 19:03 Drug: Zofran (Ondansetron) 4 mg Route: IVP; Site: left forearm; em6 20:00 Follow up: Response: No adverse reaction em6 22:09 Drug: Ondansetron 4 mg Route: PO; em6 22:09 Follow up: Response: No adverse reaction em6 Disposition Summary: 04/03/22 21:25 Discharge Ordered Location: Home ila Problem: new ila Symptoms: have improved ila Condition: Stable ila Diagnosis - Strain of muscle, fascia and tendon at neck level, initial encounter ila - Hypokalemia ila - Hypercalcemia ila Followup: ila - With: Private Physician - When: 2 - 3 days - Reason: Recheck today's complaints, Continuance of care, Re-evaluation by your physician Discharge Instructions: - Discharge Summary Sheet ila - Hypercalcemia ila - Muscle Strain ila - Muscle Strain, [id number] ila - Hypokalemia ila Forms: - Medication Reconciliation Form ila - Thank You Letter ila - Antibiotic Education ila - Prescription Opioid Use ila Prescriptions: - Tylenol-Codeine #3 300 mg-30 mg Oral - take 2 tablet by ORAL route every 6 hours; 20 tablet; Refills: 0, Product ila Selection Permitted Signatures: Dispatcher [employer] EDNataly Reza Corey, MD MD cha Nieto, Roman, MD MD rn Garcia, Victoria RN RN [email or web address] Nirali Gray RN RN [email or web address] Lauren Jimenez PAOnel PAOnel sb4 Corrections: (The following items were deleted from the chart) 18:07 18:06 Allergies: No Known Allergies; vg1 vg1
[2022-04-03] MEDS ORDERED: ONDANSETRON 4 MG (ODT) TAB ONE (22:09)
[2022-04-04 04:29] VITALS: TEMP 97.7; O2SAT 100
[2022-04-04 04:46] VITALS: BP 136/78
--- NOTE | 2022-04-04 16:00 | EKG ---
Test Date: 2022-04-03 Test Time: 20:58:49 Through Freight Engineer: MEASUREMENT RESULTS: Intervals: Rate: 83 AR: 138 QRSD: 64 QT: 380 QTc: 446 [place]: P: 59 AR: 138 QRS: 6 T: 42 INTERPRETIVE STATEMENTS: Normal sinus rhythm Normal ECG Compared to ECG 01/03/2020 12:36:52 No significant changes Electronically Signed On 04-04-22 15:59:51 COLOR SHOP HELPER by Vishnu Rhodes
== END 2022-04-03 22:09 | disposition home or self-care (01) ==
LOC: ER 17:54
DX: S16.1XXA Strain of muscle, fascia and tendon at neck level, initial encounter (principal); E87.6 Hypokalemia; E83.52 Hypercalcemia; I10 Essential (primary) hypertension; Z88.1 Allergy status to other antibiotic agents
CPT/HCPCS: 85025; 80048; 36415; 85610; 85730; 84484; 83880; 70498; 71045; 93880; Q9967; Q0162; J2405; 93005

== ENCOUNTER 2023-03-24 17:48 | Inpatient (IN) | payer OTHER ==
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
--- NOTE | 2023-03-24 18:49 | EDPHYS ---
Physician Documentation [facility] Name: Deborah Garcia Age: 58 yrs Sex: Female : 1965 Arrival Date: 03/24/2023 Time: 17:48 Bed 6 Private MD: ED Physician Ruddy Gross HPI: 03/24 20:43 This 58 yrs old Female presents to ER via EMS with complaints of Hip Injury. rt 20:43 Patient presents to the ED with mechanical fall 1 week ago when she fell hurting her rt right hip. She is been unable to walk since then. She obtained an x-ray today which showed a right femoral neck fracture. Denies hitting her head or syncopal symptoms. Denies other acute complaints, symptoms are moderate severity, aching nature, nonradiating, no other aggravating or alleviating factors. Historical: - Allergies: 18:11 Unknown IV antibiotic; hb - PMHx: 18:11 BRAIN TUMOR; Colitis; Aphasia; Hypertension; R sided deficits; hb - Immunization history:: Adult Immunizations up to date. - Social history:: Smoking status: Patient denies any tobacco usage or history of. ROS: 20:43 Constitutional: Negative for fever, chills, and weight loss, Cardiovascular: Negative rt for chest pain, palpitations, and edema, Respiratory: Negative for shortness of breath, cough, wheezing, and pleuritic chest pain, Abdomen/GI: Negative for abdominal pain, nausea, vomiting, diarrhea, and constipation, Skin: Negative for injury, rash, and discoloration, Neuro: Negative for headache, weakness, numbness, tingling, and seizure, 20:43 MS/extremity: Positive for injury or acute deformity, pain, Exam: 20:43 Constitutional: This is a well developed, well nourished patient who is awake, alert, rt and in no acute distress. Head/Face: Normocephalic, atraumatic. Chest/axilla: Normal chest wall appearance and motion. Nontender with no deformity. No lesions are appreciated. Cardiovascular: Regular rate and rhythm with a normal S1 and S2. No gallops, murmurs, or rubs. Normal PMI, no JVD. No pulse deficits. Respiratory: Lungs have equal breath sounds bilaterally, clear to auscultation and percussion. No rales, rhonchi or wheezes noted. No increased work of breathing, no retractions or nasal flaring. Abdomen/GI: Soft, non-tender, with normal bowel sounds. No distension or tympany. No guarding or rebound. No evidence of tenderness throughout. Neuro: Awake and alert, GCS 15, oriented to person, place, time, and situation. Cranial nerves II-XII grossly intact. Motor strength 5/5 in all extremities. Sensory grossly intact. Cerebellar exam normal. Normal gait. Psych: Awake, alert, with orientation to person, place and time. Behavior, mood, and affect are within normal limits. 20:43 Musculoskeletal/extremity: Tenderness to the right hip, no deformities, pulses, motor, sensation intact. 20:43 Head/face: Previous surgical incisions noted, no bruising. rt 20:43 ECG was reviewed by the Attending Physician. Vital Signs: 18:09 BP 150 / 92; Pulse 85; Resp 16; Temp 98.3; Pulse Ox 100% on R/A; Pain 7/10; hb 18:48 BP 151 / 85; Pulse 81; Resp 15; Pulse Ox 100% ; Pain 0/10; jl7 19:50 BP 142 / 76; Pulse 75; Resp 16 S; Pulse Ox 98% on R/A; ha1 20:50 BP 131 / 76; Pulse 76; Resp 18 S; Pulse Ox 98% ; ha1 18:09 Pain Scale: Adult hb 18:48 Pain Scale: Adult jl7 MDM: 18:12 Patient medically screened. rt 20:43 Differential diagnosis: hip fracture. Data reviewed: vital signs, nurses notes, lab rt test result(s), EKG, radiologic studies. Consideration of Admission/Observation Patient was admitted/placed on observation. Management of patient was discussed with the following: Brake Operator Helper: Discussed with orthopedic surgeon on-call, recommends mission to hospitalist. Independent interpretation of the following test(s) in the Emergency Department X-Ray: My interpretation is Hip fracture seen on interpretation of x-ray. Test considered but Not performed: CT: Denies head trauma, headache, CT scan not indicated. Care significantly affected by the following chronic conditions: Hypertension. 03/24 18:13 Order name: Basic Metabolic Panel; Complete Time: 18:57 rt 03/24 18:13 Order name: CBC with Diff; Complete Time: 18:57 rt 03/24 18:13 Order name: LFT's; Complete Time: 18:57 rt 03/24 18:13 Order name: PT-INR; Complete Time: 18:57 rt 03/24 18:13 Order name: Ptt, Activated; Complete Time: 18:57 rt 03/24 20:25 Order name: Basic Metabolic Panel EDMS 03/24 20:25 Order name: Basic Metabolic Panel EDMS 03/24 20:25 Order name: CBC with Automated Diff EDMS 03/24 20:25 Order name: CBC with Automated Diff EDMS 03/24 18:13 Order name: XRAY Chest (1 view); Complete Time: 20:11 rt 03/24 18:13 Order name: EKG; Complete Time: 18:14 rt 03/24 18:13 Order name: Cardiac monitoring; Complete Time: 18:44 rt 03/24 18:13 Order name: EKG - Nurse/Tech; Complete Time: 18:44 rt 03/24 18:13 Order name: IV Saline Lock; Complete Time: 18:28 rt 03/24 18:13 Order name: Labs collected and sent; Complete Time: 18:28 rt 03/24 18:13 Order name: O2 Per Protocol; Complete Time: 18:16 rt 03/24 18:13 Order name: O2 Sat Monitoring; Complete Time: 18:16 rt EC:43 Rate is 82 beats/min. Rhythm is regular, Normal Sinus Rhythm with No ectopy. QRS [place] rt is Normal. [place] interval is normal. QRS interval is normal. QT interval is normal. No Q waves. T waves are Normal. No ST changes noted. Interpreted by me. Administered Medications: No medications were administered Disposition Summary: 03/24/23 18:48 Hospitalization Ordered Notes: Hospitalization Status: Inpatient Admission rt Provider: Guillermo Butts rt Location: Telemetry/MedSurg (Inpatient) rt Condition: Stable rt Problem: new rt Symptoms: are unchanged rt Bed/Room Type: Standard rt Room Assignment: 205(03/24/23 20:38) kl Diagnosis - Right femoral neck fracture rt Forms: - Medication Reconciliation Form rt - SBAR form rt - Leadership Thank You Letter rt Signatures: Dispatcher Carol Kitchen RN RN kl Baxter, Heather, RN RN hb Tur[place], Ryan, MD MD rt Corrections: (The following items were deleted from the chart) 20:38 18:48 rt kl
[2023-03-24 18:52] LABS: Albumin 3.8 g/dL (3.4-5.0); Bilirubin Direct 0.2 mg/dL (0-0.2); Bilirubin Indirect, Calculated 0.3 mg/dL (0.2-0.8); Bilirubin Total 0.5 mg/dL (0.2-1.0); Potassium 3.4 mEq/L (3.5-5.1); Protein, Total 8.3 g/dL (6.4-8.2)
[2023-03-24 18:53] LABS: Absolute Lymphocytes (CBC) 1.5 K/uL (0.7-4.9); Hematocrit 43.9 % (36.0-45.0); Lymphocytes % 21.2 % (15.3-44.8); MCV 90.3 fL (80-100); MPV 7.7 fL (7.6-11.3); Platelets 273 thou/uL (152-406); RBC Red Blood Cell Count 4.86 M/uL (3.86-4.86)
[2023-03-24 18:54] LABS: Protime INR 0.98
--- NOTE | 2023-03-24 19:59 | RAD REPORT ---
EXAM DESCRIPTION: RADChest Single View03/24/2023 7:01 pm CLINICAL HISTORY: pre op. Hypertension COMPARISON: Chest Single View dated 04/03/2022; Chest Single View dated 01/03/2020; Chest Single View d ated 07/15/2017 TECHNIQUE: Portable AP view of the chest. FINDINGS: The lungs are clear. No pneumothorax or effusion. The cardiomediastinal contours are unre markable. IMPRESSION: No acute cardiopulmonary process.
[2023-03-24] MEDS ORDERED: ACETAMINOPHEN 325 MG TABLET PO PRN (20:14)
[2023-03-24] MEDS ORDERED: ONDANSETRON 4 MG/2 ML VIAL IV PRN (20:14)
[2023-03-24] MEDS ORDERED: MORPHINE 2 MG/ML SYR IV PRN (20:24)
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
[2023-03-24 23:08] VITALS: BMI 28.3
[2023-03-25] MEDS: NA CHLORIDE 0.9% 1,000 ML IV SCH ×2 (01:34→17:00)
[2023-03-25 04:03] LABS: Absolute Lymphocytes (CBC) 1.9 K/uL (0.7-4.9); Lymphocytes % 33.7 % (15.3-44.8); MCV 90.9 fL (80-100); MPV 7.4 fL (7.6-11.3); Platelets 272 thou/uL (152-406); RBC Red Blood Cell Count 4.18 M/uL (3.86-4.86)
[2023-03-25 04:59] LABS: Potassium 3.4 mEq/L (3.5-5.1)
[2023-03-25] MEDS ORDERED: KCL 20 MEQ/100 mL IVPB 20 MEQ/100 ML BAG IV SCH (05:00)
[2023-03-25] MEDS: ENOXAPARIN 40 MG/0.4 ML SQ SCH (09:00)
[2023-03-25] MEDS ORDERED: POTASSIUM CL SA 10 MEQ TAB PO ONE (09:00)
[2023-03-25] MEDS ORDERED: INFLUENZA VACCINE (for 6+ mo) 0.5 ML DOSE IMVAC ONE (12:00)
[2023-03-25] MEDS ORDERED: METHYLPHENIDATE HCL 20 MG PO SCH (13:02)
[2023-03-25] MEDS: GABAPENTIN 100 MG CAP PO SCH ×2 (13:58→20:42)
--- NOTE | 2023-03-25 14:13 | CON ---
Date of Consultation: 03/25/2023 This is my first time I am seeing this patient to my knowledge. She is a 58-year-old female, who unf ortunately has had a history of multiple surgeries after removal of a brain tumor and unfortunately u ses a walker and a wheelchair mostly, but also unfortunately fell and when she fell, she injured her right lower extremity. It was perhaps a week before she arrived to the emergency department because she had continued pain and problems and when she arrived in the emergency room, x-rays were taken whi demonstrated a slightly displaced femoral neck fracture. On physical examination, she has a dress ing on her left thigh from recent grafting for continuing work on plastic and reconstructive surgery regarding her skull. However, she does not have any active infection now. She did have a plate bib jose miguel from her skull because of infection in the past and they do have some concerns about that, sánchez dozier, does not appear to have any active infection. On physical examination otherwise, all of her long bones and joints are palpated without pain or crepitation with the exception of her right hip, which is only slightly painful at this point, however, she has not tried to bear weight on it because of th is. Family is present and I also speak with the patient herself and we discussed the femoral neck fr acture and how this could be addressed including the possibility of open reduction and internal fixat ion with screws, in situ screws. Both of these are less attractive because of the delay in presentat ion as well as her relatively low activity level and inability to protect this most likely. Also, we discussed the possibility of total hip arthroplasty. This is not highly recommended because again o f her very low activity level and the possibility of dislocation or other complications including mor e prolonged surgery or other issues which may arise and after it has been discussed, the decision was made to go forward with a cemented bipolar hemiarthroplasty. The risks associated with this were ag ain discussed and they agreed to proceed. She has not been seen by the hospitalist yet, but kedar garcia appears to be fairly healthy other than the previously discussed brain tumor and most likely she wi ll be cleared today and we will plan for this surgery most likely tomorrow evening. They state they understand everything as presented and wish to proceed. /KASSANDRA Voice ID: [id number] Report ID: [id number]
[2023-03-25] MEDS: METOPROLOL TAR 25 MG TAB PO SCH (20:41)
[2023-03-25] MEDS: METHYLPHENIDATE HCL 20 MG PO SCH (21:00)
[2023-03-26] MEDS: ENOXAPARIN 40 MG/0.4 ML SQ SCH (08:46)
[2023-03-26] MEDS: METHYLPHENIDATE HCL 20 MG PO SCH ×3 (09:00→20:15)
[2023-03-26] MEDS: GABAPENTIN 100 MG CAP PO SCH ×3 (09:26→20:15)
[2023-03-26] MEDS: METOPROLOL TAR 25 MG TAB PO SCH ×2 (09:26→21:51)
[2023-03-26 11:09] LABS: Absolute Lymphocytes (CBC) 1.5 K/uL (0.7-4.9); Hematocrit 39.9 % (36.0-45.0); MCV 91.2 fL (80-100); Platelets 262 thou/uL (152-406); RBC Red Blood Cell Count 4.37 M/uL (3.86-4.86)
[2023-03-26] MEDS: NA CHLORIDE 0.9% 1,000 ML IV SCH (13:14)
[2023-03-26 13:59] LABS: Albumin 3.4 g/dL (3.4-5.0); Bilirubin Total 0.9 mg/dL (0.2-1.0); Potassium 3.9 mEq/L (3.5-5.1); Protein, Total 7.4 g/dL (6.4-8.2)
[2023-03-26] MEDS ORDERED: FENTANYL CITR 100 MCG/2 ML ONE (14:27)
[2023-03-26] MEDS ORDERED: propofoL 200 MG/20 ML VIAL IV ONE (14:27)
[2023-03-26] MEDS ORDERED: LIDOCAINE 2% MPF 5 ML VIAL ONE (14:27)
[2023-03-26] MEDS ORDERED: ROCURONIUM 50 MG/5 ML VIAL IV ONE (14:27)
[2023-03-26] MEDS ORDERED: ONDANSETRON 4 MG/2 ML VIAL ONE (14:30)
[2023-03-26] MEDS ORDERED: HYDROMORPHONE HCL 1 MG/ML INJ ONE (15:28)
[2023-03-26] MEDS ORDERED: TRANEXAMIC ACID 1,000 MG/10 ML VIAL IV ONE (15:29)
[2023-03-26] MEDS ORDERED: Ringers Lactate 1,000 ML IV ONE ×2 (15:39→17:47)
[2023-03-26] MEDS ORDERED: EPHEDRINE SULF 50 MG/ML VIAL ONE (15:41)
[2023-03-26] MEDS ORDERED: dexAMETHasone 10 MG/ML VIAL ONE (15:54)
[2023-03-26] MEDS ORDERED: CLINDAMYCIN 900MG/D5W 900 MG/50 ML IVPB IV ONE (16:00)
[2023-03-26] MEDS ORDERED: Phenylephrine HCl 10 MG/ML 1 ML VIAL ONE (16:19)
[2023-03-26] MEDS ORDERED: GLYCOPYRROLATE 0.2 MG/ML SYR ONE (17:14)
[2023-03-26] MEDS ORDERED: NEOSTIGMINE 1 MG/ML -10 ML VIAL ONE (17:14)
--- NOTE | 2023-03-26 17:19 | P.BOP ---
Preoperative diagnosis: right hip fracture/femoral neck Postoperative diagnosis: same Primary procedure: right hip bipolar arthoplasty Estimated blood loss: 100cc Anesthesia: General Complications: None Transferred to: Recovery Room Condition: Good
[2023-03-26 18:02] VITALS: O2SAT 97
--- NOTE | 2023-03-26 18:22 | OP ---
Date of Procedure: 03/26/2023 Surgeon: Bishop Rodriguez MD Preoperative Diagnosis: Right femoral neck fracture. Postoperative Diagnosis: Right femoral neck fracture. Procedure: Right total hip arthroplasty using the Biomet system. Estimated Blood Loss: 100 cc. Complications: There were no complications. Indications For Operation: The patient is a wheelchair and a minimal walker ambulatory with signific ant medical problems, who unfortunately fell injuring her right lower extremity. She was seen and ex amined in the emergency department. However, this was approximately a week after the injury as she w as unable to ambulate. X-rays demonstrated an impacted femoral neck fracture. On seeing her, she di d have some pain with movement or manipulation of the right hip. However, the pain is not severe. H owever, she is unable to ambulate. Review of x-ray do demonstrate somewhat valgus impacted and poste riorly displaced femoral neck fracture. Risks, benefits, and alternatives of different methods of tr eating this have been discussed with the patient. These included in situ pinning, however, this is c oncerning as is already at least a week old, as well as, her relatively poor ability to protect this in the fashion to begin ambulating. Next option is total hip arthroplasty as she is relatively young , but she is very low demand and the patient and family are interested in the procedure, which julio s the least number of surgical complications with regard to arthroplasty and therefore a cemented bip olar hemiarthroplasty is decided upon, and risks associated with this were again discussed with the p atient and family. They agreed to proceed. Description Of Procedure: The patient was taken to the operating room, placed in supine position. G eneral anesthesia was easily obtained by Anesthesia staff. Following this, she was then transferred on the operative bed. She was then rolled left side down with an axillary roll and all of her bony p rominences were checked that she is positioned using standard hip positioning. After this, her right lower extremity was then prepped and draped in the usual sterile fashion for the procedure. After t his, a standard posterolateral incision was taken down carefully through skin and soft tissues. Meti culous hemostasis being maintained using Bovie electrocautery. This led down to the fascia. A small stab wound was made in the fascia that allowed for palpation of gluteal tendon to ensure we were in the correct position. This was then brought up carefully to near the tip of the greater trochanter w here the fibers of the gluteus rashida were encountered. They were spread using finger pressure. Af ter the sciatic nerve was palpated and protected, it does appear to be quite superficial but it was w ell noticed and protected throughout the case. Charnley was placed and the external rotators and cap minh were then taken down and tagged for later repair. The femoral neck itself was examined. It diaz s appear to be somewhat misshapen. It also was slightly discolored, possibly indicating early osteon ecrosis; however, this was uncertain. But the hip was dislocated with the head intact. A standard s aw cut was then made and the head was removed and sized using ring gauges. After this, the soft tiss ues and acetabulum were removed. The labrum was left intact. Attention was turned back to the femur and hot box spotter was used to lateralize as well as canal finding reamer. This was followed by sequent ial broaching. Broaches progressed quite easily to a size 9. However, the size 10 was somewhat diff icult to place. Decision was made not to hammer vigorously as her bone quality, although appears to be fairly good on the x-ray does not appear to be very good from the mechanism of injury as well as d irect palpation of the femoral neck. So decision was made to move forward with a cemented 7. The fe moral canal was then irrigated until it runs completely clear. The bone plug was placed to appropria te depth. Two Ray-Tecs were placed in the acetabulum to help control any extravasation of cement and the cement was then mixed and placed using third generation cementing technique with good apparent p ermeation. After this, the Echo stem was then placed in appropriate position and held in place caref ully as the cement hardened and any unsupported cement was removed as well as removal of 2 Ray-Tecs. It was then trialed with a +3 as stability is somewhat important and relocated. It appeared to have good hip extension with full flexion, full adduction, internal rotation to at least 45 degrees. It may have been possible to trial with slightly smaller. However, at this point, we were very interest ed in not having a dislocation. Therefore, decision was made to move forward with this +3, which jordyn ears otherwise good with no Shuck. Afterwards, the final ball was placed. The acetabulum was checke d to ensure there was no debris. I then relocated it. It was found to be stable in the above areas as well. The wound was copiously irrigated using jet lavage and external rotators and capsule were r epaired back to the greater trochanter and soft tissues using bone tunnel and soft tissue stitch were again irrigated and the gluteal muscle and fascia were then repaired back in a watertight fashion us ing heavy Vicryl sutures. The skin irrigated and skin was closed using interrupted Vicryl sutures fo llowed by anshul. The patient was then placed in Aquacel dressing, awakened, and taken to recovery room. /KASSANDRA Voice ID: [id number] Report ID: [id number]
[2023-03-26] MEDS: DOCUSATE NA 100 MG CAP PO SCH (20:14)
[2023-03-27] MEDS: CLINDAMYCIN 900MG/D5W 900 MG/50 ML IVPB IV SCH ×2 (01:03→07:49)
[2023-03-27] MEDS ORDERED: HYDROCODONE/APAP 10/325 TAB PO PRN (07:47)
[2023-03-27] MEDS: GABAPENTIN 100 MG CAP PO SCH ×2 (07:48→15:03)
[2023-03-27] MEDS: DOCUSATE NA 100 MG CAP PO SCH (07:48)
[2023-03-27] MEDS: ENOXAPARIN 40 MG/0.4 ML SQ SCH (07:49)
[2023-03-27] MEDS: NA CHLORIDE 0.9% 1,000 ML IV SCH (07:50)
[2023-03-27] MEDS: METOPROLOL TAR 25 MG TAB PO SCH (07:50)
[2023-03-27] MEDS: METHYLPHENIDATE HCL 20 MG PO SCH (07:57)
--- NOTE | 2023-03-27 13:54 | P.PN ---
Date of Service: 03/25/23 Subjective Patient is doing well; recovering well s/p surgery Physical Examination - Vitals reviewed - Physical Exam General: Alert, Oriented x3 Respiratory: Normal air movement Cardiovascular: Regular rate/rhythm, Normal S1 S2 Gastrointestinal: Soft and benign Musculoskeletal: Tenderness with pain on ROM Neurological: WNL with right sided weakness Assessment and Plan - Assessment 1. Femur fracture s/p right JOANA 2. History of ADHD 3. Hypokalemia - Plan 1. Femur fracture s/p JOANA: -Appreciate Orthopedic input -Continue pain control with as needed Tylenol, [place] and morphine. -She will be on strict bedrest pending surgical intervention. 2. History of ADHD: Will continue routine home medication for management. 3. Hypokalemia: Mildly low potassium at 3.4. Will replete and follow levels. Prophylaxis: Lovenox for DVT prophylaxis CODE STATUS: Full code Disposition: To have surgical intervention for femur fracture. - Advance Directives Does patient have a Living Will: No Does patient have a Durable POA for Healthcare: No
--- NOTE | 2023-03-27 15:26 | EKG ---
Test Date: 2023-03-24 Test Time: 18:41:12 Christmas Bell Ringer: JAMSHID MEASUREMENT RESULTS: Intervals: Rate: 82 NH: 132 QRSD: 68 QT: 382 QTc: 446 [place]: P: 64 NH: 132 QRS: 52 T: 55 INTERPRETIVE STATEMENTS: Normal sinus rhythm Normal ECG Compared to ECG 04/03/2022 20:58:49 No significant changes Electronically Signed On 03-27-23 15:15:06 HR SPECIALIST by Vishnu Rhodes
[2023-03-27 17:28] VITALS: BP 96/51; TEMP 98.6
[2023-03-28] MEDS ORDERED: METHYLPHENIDATE HCL 20 MG PO SCH (08:00)
== END 2023-03-27 18:45 | DRG 522 ==
LOC: ER 17:48 → ERHOLD 20:14 → 2ND 20:59
PROVIDERS: ADMIT Internal Medicine Nephrology; ATTEND Hospitalist
PROC: 0SR9019 Replacement of Right Hip Joint with Metal Synthetic Substitute, Cemented, Open Approach (ICD-10-PCS; principal; 2023-03-26 15:45)
DX: S72.001A Fracture of unspecified part of neck of right femur, initial encounter for closed fracture (principal); I10 Essential (primary) hypertension; E87.6 Hypokalemia; F90.9 Attention-deficit hyperactivity disorder, unspecified type; Z88.1 Allergy status to other antibiotic agents; Z79.899 Other long term (current) drug therapy; W19.XXXA Unspecified fall, initial encounter; Y93.9 Activity, unspecified; Y99.9 Unspecified external cause status; Y92.019 Unspecified place in single-family (private) house as the place of occurrence of the external cause
CPT/HCPCS: 36415; 71045; 80048; 80053; 80076; 82550; 85025; 85610; 85730; 88304; 88305; 88311; 93005; 97110; 97116; 97161; 97530; 99285; J1100; J1170; J1650; J2001; J2371; J2405; J2704; J2710; J3010; J7030; J7120

== ENCOUNTER 2023-03-27 14:33 | Inpatient (IN) | payer OTHER ==
[2023-03-27] MEDS ORDERED: ACETAMINOPHEN 325 MG TABLET PO PRN (19:10)
--- OUTSIDE RECORDS SUMMARY | 2023-03-27 19:32 | XMS REPORT | Continuity of Care Document ---
:1965 Author Organization [facility] t Address [address] [place] [address]. [address] [place] [address] Care Team Providers Name Role Phone No , Pcp Primary Care Physician Unavailable JASON SMITH Attending Clinician Unavailable KARON CHILDERS Attending Clinician Unavailable SERGEY WATTS Attending Clinician Unavailable SERGEY WATTS Attending Clinician Unavailable PRANAY PINEDO Attending Clinician Unavailable PRANAY PINEDO Attending Clinician Unavailable Sergey Watts MD Attending Clinician GC_GCBZW_Kadiyala_S Attending Clinician Unavailable Doctor Unassigned, [place] Attending Clinician Unavailable JASON SMITH Attending Clinician Unavailable Jason Smith Attending Clinician JUAN VIVAS Attending Clinician Unavailable Cyrus Logan Attending Clinician Tarsha Do MA Attending Clinician Unavailable STEVE NAVA Attending Clinician Unavailable Steve Nava Attending Clinician Antolin SUAREZ, Lashell Attending Clinician Unavailable Carolynn Vasquez RN Attending Clinician Unavailable SETH ADAMS Attending Clinician Unavailable Nurys Wood MD Attending Clinician Bobbi Everett MD Attending Clinician Seth Adams DO Attending Clinician Seferino Mcgraw Attending Clinician SEFERINO MCGRAW Attending Clinician Unavailable ISELA GRAY Attending Clinician Unavailable Isela Gray Attending Clinician Brayden Moreno Attending Clinician [facility] Attending Clinician Unavailable DICK CASTRO Attending Clinician Unavailable Dick Castro Attending Clinician Dick Castro MD Attending Clinician Meli LUTZ, Provider Not In Attending Clinician Unavailable Velasquez Gentile MD Attending Clinician kSy Capellan Attending Clinician VISIT, NURSE [facility] Attending Clinician Unavailable Yasmin Capellan MD Attending Clinician GERALDO DELGADO Attending Clinician Unavailable Geraldo Delgado Attending Clinician Rebeca Mcadams Attending Clinician Cirilo Killian MD, I Attending Clinician CIRILO KILLIAN Attending Clinician Unavailable KARON CHILDERS Attending Clinician Unavailable Karon Childers Attending Clinician Ross Coronado MD Attending Clinician Tommy Anderson DO Attending Clinician Maureen Steinberg MD Attending Clinician Dannie Quiroga MD, Alexandra Agudelo Attending Clinician [phone] Brisa LUTZ, Vini Heredia Attending Clinician [phone] HILDA SCOTT Attending Clinician Unavailable Sandy Hilda MORGAN Attending Clinician [phone], [facility] Attending Clinician Unavailable Cirilo Killian Attending Clinician Karen Boogie Attending Clinician Yosef Elizondo Attending Clinician ALICE KC Attending Clinician Unavailable SERGEY WATTS Admitting Clinician Unavailable GC_GCBZW_Kadiyala_S Admitting Clinician Unavailable JASON SMITH Admitting Clinician Unavailable Jason Smith Admitting Clinician JASON SMITH Admitting Clinician Unavailable TEQWIMUAH, SETH Admitting Clinician Unavailable Teqwimuah DO, Seth Admitting Clinician GERALDO DELGADO Admitting Clinician Unavailable Sky Capellan Admitting Clinician KARON CHILDERS Admitting Clinician Unavailable Karon Childers Admitting Clinician VINI LEDEZMA Admitting Clinician Unavailable Yosef Elizondo Admitting Clinician ALICE KC Admitting Clinician Unavailable Payers Payer Name Policy Type Policy Number Effective Date Expiration Date S zeina MEDICARE PART A AND [id number] 1995 B 00:00:00 MEDICARE PART A \\T\\ [id number] 1995 B 00:00:00 COMMERCIAL [id number] 2020 NON-CONTRACT 00:00:00 GENERIC Problems Condition Condition Condition Status Onset Resolution Last Treating Co mments Source Name Details Category Date Date Treatment Clinician Date OTHER OTHER Diagnosis Active 2022-10-17 Me moria ACQUIRED ACQUIRED 10-02 21:53:00 l DEFORMITY DEFORMITY 00:00: Herm shama OF HEAD OF HEAD 00 Active 10/02/2022 [facility] OPEN SCLAP OPEN Diagnosis Active 2021-12-03 Memoria WOUND SCLAP 11-22 07:20:00 l WOUND 00:00: Duy Active 00 11/22/2021 [facility] S01.00XD S01.00XD Diagnosis Active 2021-11-20 Memoria S06.9X0A S06.9X0A 10-01 21:56:00 l S01.90XA S01.90XA 00:00: Scottie n Active 00 10/01/2021 [facility] OTHER OTHER Diagnosis Active 2021-08-30 Mem oria INJURY OF INJURY OF 08-12 13:43:00 l UNSPECIFIE UNSPECIFIE 00:00: Daniel nye D BODY D BODY 00 REGION, REGION, Active 08/12/2021 [facility] SCALP SCALP Diagnosis Active 2021-08-07 Mem oria WOUND WOUND 07-02 09:26:00 l Active 00:00: Duy 07/02/2021 00 [facility] Pneumonia Pneumonia Disease Active Uni vers due to due to 04-29 ity of COVID-19 COVID-19 00:00: [place] virus virus 00 Medical Branch Respirator Respirator Disease Active U nivers y failure y failure 04-29 ity of 00:00: [place] 00 [facility] Branch CVA CVA Disease Active Univers (cerebral (cerebral 04-29 ity of vascular vascular 00:00: [place] accident) accident) 00 [facility] Branch Seizure Seizure Disease Active Univers 04-29 ity of 00:00: [place] 00 Medical Branch HYPOXIA HYPOXIA Diagnosis Active 2020-042021-03-22 Memoria Active 05-17 21:42:00 l 03/17/2021 00:00: Scottie jacob [facility] 00 [place] OPEN WOUND OPEN Diagnosis Active 2020-042021-04-12 Memoria TO LEG AND WOUND TO 04-28 13:11:00 l SCALP LEG AND 06:00: [place]uy SCALP 00 Active 02/26/2021 [facility] Skull Skull Disease Active [place] defect defect 09-27 Health 00:00: 00 ACUTE ACUTE Diagnosis Active 2020-09-27 Mem oria ONSET ONSET 09-15 21:48:00 l SEPSIS SEPSIS 00:00: Duy Active 00 09/15/2020 [facility] FEVER FEVER Diagnosis Active 2020-09-15 Mem oria Active 09-15 16:51:00 l 09/15/2020 00:00: Scottie jacob [address] GAMMA GAMMA Diagnosis Active 2020-09-15 Mem oria KNIFE KNIFE 09-08 07:48:00 l FOLLOW UP FOLLOW UP 00:00: Herm shama Active 00 09/08/2020 [facility] BRAIN BRAIN Diagnosis Active 2020-09-04 Mem oria INFECTION INFECTION 08-25 21:50:00 l Active 00:00: Duy 08/25/2020 00 [facility] SENT BY SENT BY Diagnosis Active 2020-08-25 Harrison HOANG,BLOOD DR,BLOOD 08-25 18:27:00 l CULTURES CULTURES 00:00: Scottie jacob Active 00 08/25/2020 [facility] HEAD HEAD Diagnosis Active 2020-08-15 Mem oria INJURY INJURY 08-15 21:45:00 l Active 00:00: Duy 08/15/2020 00 [facility] DEHISCENCE DEHISCENC Diagnosis Active 2020-08-29 Sandraoria WOUND E WOUND 08-15 21:58:00 l Active 00:00: Duy 08/15/2020 00 [facility] Acute Acute Disease Active [facility] stroke stroke 00:00: Medical 00 [place] Right Right Disease Active [facility] sided sided 9-07 [facility] weakness weakness 00:00: Medica l Center C71.9 - C71.9 - Diagnosis Active 2019-06-12 Memoria MALIGNANT MALIGNANT 12-31 10:34:00 l NEOPLASM NEOPLASM 00:01: Scottie jacob OF BRAIN, OF BRAIN, 00 U U Active 12/31/2018 BUSTER Arreaga GK FOLLOW GK FOLLOW Diagnosis Active 2018-12-30 Memoria UP UP Active 09-15 15:07:00 l 09/15/2018 00:00: Scottie jacob [address] C71.9 C71.9 Diagnosis Active 2018-08-28 Mem oria Active 08-11 15:31:00 l 08/11/2018 00:00: Scottie jacob [address] Seizure Seizure Disease Recurre [facility] Acute Acute Disease Active [facility] cystitis [facility]stitis 3-26 [facility] 00:[facility]: Medical [place] Weakness Weakness Disease [facility] Aphasia Aphasia Disease Active [facility] Physical Physical Disease Active [facility] deconditio deconditio 3-20 Samia kes daksha daksha 00:00: Medical [place] Dysarthria Dysarthria Disease Active [facility] 00:[facility]: Medical [place] Hypertensi Hypertensi Disease Active [facility] on [facility] CVA CVA Disease Recurre [facility] (cerebral (cerebral nce 3-20 [facility] vascular vascular 00:00: Medica l accident) accident) 00 Cent er 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 22:47:10 l of of [place] meninges meninges (disorder) (disorder) Resolved Problem 12/03/2021 [facility] Neuro,[facility], [place] H BUSTER Arreaga Osteomyeli Osteomyel Problem Resolve 2021-12-03 Memoria tis itis d 22:47:10 l (disorder) (disorder) He rmann Resolved Problem 12/03/2021 [place] [facility] 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 23:04:36 l brain brain [place] (disorder) (disorder) Active [facility]04/[facility], BUSTER Arreaga Bacterial Bacterial Problem Active 2022-10-10 Memoria infectious infectious 23:24:52 l disease disease Duy (disorder) (disorder) Active Problem 10/10/2022 Medical Group,[facility], [place] [facility] Glioma Glioma Problem Active 2022-10-10 Dannie pat (disorder) (disorder) 23:24:52 l Active [place] Problem 10/10/2022 [facility] Hematoma Hematoma Problem Active 2022-10-10 Memoria of of 23:24:52 l subdural subdural Scottie n space of space of neuraxis neuraxis (disorder) (disorder) Active Problem 10/10/2022 [facility] Past Past Problem Active 2022-10-10 Memor ia history of history of 23:24:52 l clinical clinical Scottie n finding finding (context-d (context-d ependent ependent category) category) Active Problem 10/10/2022 [facility] History of History Problem Active 2022-10-10 Memoria craniotomy of 23:24:52 l (situation craniotomy He rmann ) (situation ) Active Problem 10/10/2022 [facility] Malignant Malignant Problem Active 2022-10-10 Memoria glioma of glioma of 23:24:52 l central central [place] nervous nervous system system (disorder) (disorder) Active Problem 10/10/2022 [facility] Open wound Open Problem Active 2022-10-10 M emoria of scalp wound of 23:24:52 l (disorder) scalp Scottie n (disorder) Active Problem 10/10/2022 [facility] Osteomyeli Osteomyel Problem Active 2022-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 23:24:52 l cranium cranium [place] (disorder) (disorder) Active Problem 10/10/2022 [facility] Postmenopa Postmenop Problem Active 2022-10-10 Memoria usal state ausal 23:24:52 l (finding) state Duy (finding) Active Problem 10/10/2022 [facility] 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 [place] (disorder) (disorder) Active Problem 10/10/2022 [facility] 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) Active Problem 10/10/2022 [facility] ENCNTR FOR ENCNTR Diagnosis Active 2020-09-15 Memoria GENERAL FOR 07:48:00 l ADULT GENERAL [place] MEDICAL ADULT EXAM W/ MEDICAL EXAM W/ Active [facility] OPEN WOUND OPEN Diagnosis Active 2021-02-28 Memoria WOUND 17:01:00 l Active Scottie jacob [facility] DISRUPTION DISRUPTIO Diagnosis Active 2020-08-29 Memoria OF N OF 21:58:00 l EXTERNAL EXTERNAL Scottie n OPERATION OPERATION (SURGIC (SURGIC Active [facility] SEPSIS, SEPSIS, Diagnosis Active 2020-09-27 Memoria UNSPECIFIE UNSPECIFIE 21:48:00 l D ORGANISM D ORGANISM He rmann Active [facility] ENCEPHALIT ENCEPHALI Diagnosis Active 2020-09-04 Memoria IS AND TIS AND 21:50:00 l ENCEPHALOM ENCEPHALOM He [facility] YELITIS, YELITIS, UNSP UNSP Active [facility] UNSPECIFIE UNSPECIFI Diagnosis Active 2021-08-07 Memoria D OPEN ED OPEN 09:26:00 l WOUND OF WOUND OF Scottie jacob SCALP, SCALP, INITIAL INITIAL Active [facility] M95.2 - M95.2 - Diagnosis Active 2022-08-02 Memoria OTHER OTHER 15:17:00 l ACQUIRED ACQUIRED Scottie jacob DEFORMITY DEFORMITY OF HE OF HE Active [facility]ID [facility] History of Past Illness Condition Condition Condition Status Onset Resolution Last Treating Co mments Source Name Details Category Date Date Treatment Clinician Date Unspecifie Unspecifi Problem 2021-08-27 2021-08-27 Memoria d open ed open 08-23 08:52:27 08:52:27 l wound of wound of 19:56: Scottie jacob scalp, scalp, 00 initial initial encounter encounter 08/23/2021 08/27/2021 [facility] Hypoxemia Hypoxemia Problem 2020-042021-03-19 2021-03-19 Memoria 03/17/202105-17 22:25:58 22:25:58 l 12:51: Scottie n 1 00 [place] Other Other Problem 2020-2021-01-25 2021-01-25 M emoria malaise malaise 01-19 23:30:47 23:30:47 l 01/19/2021 19:12: Scottie n 01/25/2021 00 [facility] Unsteadine Unsteadin Problem 2020-2021-01-25 2021-01-25 Memoria ss on feet ess on 01-19 23:30:47 23:30:47 l feet 19:12: Duy 01/19/2021 00 01/25/2021 [facility] Cognitive Cognitive Problem 2021-01-25 2021-01-25 Memoria communicat communicat 01-19 23:30:47 23:30:47 l ion ion 19:11: Duy deficit deficit 00 01/19/2021 01/25/2021 [facility] Allergies, Adverse Reactions, Alerts Allergy Allergy Status Severity Reaction(s) Onset Inactive Treating Comm ents Source Name Type Date Date Clinician CODEINE DRUG Active Med N/V Univers INGREDI 12-23 ity of 00:00: [place] 00 Medical Branch Codeine Propensi Active Nausea Univers ty to and/or 12-23 ity of adverse Vomiting 00:00: [place] reaction 00 Medical s Branch CEFEPIME DRUG Active Unknown-Cmnt Un aria INGREDI 04-29 ity of 00:00: [place] 00 Medical Branch Cefepime Propensi Active Unknown - Uni vers ty to See comments 04-29 ity of adverse 00:00: [place] reaction 00 Medical s Branch Ceftriax Propensi Active Rash [facility] one ty to 09-27 Health adverse 00:00: reaction 00 s NO KNOWN Allergy Active [facility] cefepime cefepime Active Tena Gordillo codeine codeine Active Harrison Gordillo Social History Social Habit Start Date Stop Date Quantity Comments Source History of tobacco Cigarette Smoker [facility] use Sexual orientation [facility] Gender identity [facility] y of [facility] [place] [facility] History of Social 2023-02-12 2023-02-12 [facility] function 00:00:00 00:00:00 Exposure to 2022-09-08 2022-09-18 Not sure [facility] SARS-CoV-2 (event) 00:00:00 13:03:00 Tobacco use and 2022-08-26 2022-08-26 Smokeless [facility] exposure 00:00:00 00:00:00 tobacco non-user Social History 2020-12-15 2020-12-15 [facility] Kenia corral 13:21:20 13:21:20 Alcohol intake 2020-01-03 2020-01-[address] [facility] 00:00:00 00:00:00 non-drinker of Medical Ce nter alcohol (finding) Sex Assigned At [address] [facility] kes 00:00:00 00:[facility]00 [facility] Smoking Status Start Date Stop Date Source Tobacco smoking consumption [facility] Tobacco smoking status 2021-11-30 12:25:52 2021-11-30 12:25:52 M jos Gordillo Never smoked tobacco [facility] Medications Ordered Filled Start Stop Current Ordering Indication Dosage Frequency Signature Comments Components Source Medication Medication Date Date Medication? Clinician (SIG) Name Name gadobenate 2022-04- No [id number] .2mL/kg 0.2 mL/kg, Univers dimeglumine 04-29 Intravenou i ty of (MULTIHANCE 21:15: 21:06 s, ONCE, 1 [place] -10 mL) 00 :00 dose, On Medical injection Mayra Branch 0.2 mL/kg 02/27/23 at 1615, Routine methylpheni 2022-04 Yes [id number] 20mg Take 1 Univers date HCl 0-24 tablet by ity of (RITALIN) 00:00[place] 20 [place] 00 the Medical tablet morning Branch and 1 tablet at noon and 1 tablet in the evening. methylpheni 2022-04 Yes [id number] 20mg Take 1 Univers date HCl 0-24 tablet by ity of (RITALIN) 00:00[place] 20 mg 00 the Medical tablet morning Branch and 1 tablet at noon and 1 tablet in the evening. methylpheni 2022-04 Yes [id number] 20mg Take 1 Univers date HCl 0-24 tablet by ity of (RITALIN) 00:00[place] 20 mg 00 the Medical tablet morning Branch and 1 tablet at noon and 1 tablet in the evening. valproic 2022-04 Yes Take by UT acid 0-18 mouth. Validus-IVC (Depakene) 13:28: 250 MG/5ML 32 oral liquid polyethylen 2022-04 Yes 17g QD Take 17 g U T e glycol 0-18 by mouth 1 Healt h (Glycolax) 13:28: (one) time 17 GM/SCOOP 32 each day. powder senna 2022-04 Yes 1{tbl} QD Take 1 UT (Senokot) 0-18 tablet by Healt h 8.6 MG 13:28: mouth 1 tablet 32 (one) time each day. gabapentin 2022-04 Yes 400mg Q.[id number] Take 400 UT (Neurontin) 0-18 [id number] mg by H ealth 400 MG 13:28: 3D mouth 3 capsule 32 (three) times a day. docusate 2022-04 Yes 100mg Q.5D Take 100 UT sodium 0-18 mg by Health (Colace) 13:28: mouth 2 100 MG 32 (two) capsule times a day. cloBAZam 10 0 Yes [id number] 10mg Take 1 Univers mg tablet 9-26 tablet by ity o f 00:00: mouth in [place] [address] the Medical morning Branch and 1 tablet in the evening. cloBAZam 10 2022-0 Yes [id number] 10mg Take 1 Univers mg tablet 9-26 tablet by ity o f 00:00: mouth in [place] [address] the Medical morning Branch and 1 tablet in the evening. cloBAZam 10 2022-0 Yes [id number] 10mg Take 1 Univers mg tablet 9-26 tablet by ity o f 00:00: mouth in [place] [address] the Medical morning Branch and 1 tablet in the evening. cloBAZam 10 0 Yes [id number] 10mg Take 1 Univers mg tablet 9-26 tablet by ity o f 00:00: mouth in [place] [address] the Medical morning Branch and 1 tablet in the evening. valproic Yes Take by UT acid 9-06 mouth. Validus-IVC (Depakene) 13:59: 250 MG/5ML 05 oral liquid polyethylen Yes 17g QD Take 17 g U T e glycol 9-06 by mouth 1 Healt h (Glycolax) 13:59: (one) time 17 GM/SCOOP 05 each day. powder senna 2023-0 Yes 1{tbl} QD Take 1 UT (Senokot) 9-06 tablet by Healt h 8.6 MG 13:59: mouth 1 tablet 05 (one) time each day. gabapentin 2023-0 Yes 400mg Q.[id number] Take 400 UT (Neurontin) 9-06 [id number] mg by H ealth 400 MG 13:59: 3D mouth 3 capsule 05 (three) times a day. docusate 2023-0 Yes 100mg Q.5D Take 100 UT sodium 9-06 mg by [facility] (Colace) 13:59: mouth 2 100 MG 05 (two) capsule times a day. cloBAZam 10 2023-0 Yes [id number] 10mg Take 1 Univers mg tablet 8-28 tablet by ity o f 00:00: mouth in [place] [address] the Medical morning Branch and 1 tablet in the evening. gabapentin 2023-0 Yes 100mg Take 1 Univ ers 100 mg 8-28 capsule by ity of capsule 00:00: mouth in [place] [address] the Medical morning Branch and 1 capsule at noon and 1 capsule in the evening. methylpheni 2023-0 Yes [id number] 20mg Take 1 Univers date HCl 8-28 tablet by ity of (RITALIN) 00:00: mouth in [facility] 20 mg 00 the Medical tablet morning Branch and 1 tablet at noon and 1 tablet in the evening. cloBAZam 10 2023-0 Yes [id number] 10mg Take 1 Univers mg tablet 8-28 tablet by ity o f 00:00: mouth in [place] [address] the Medical morning Branch and 1 tablet in the evening. gabapentin 2023-0 Yes 100mg Take 1 Univ ers 100 mg 8-28 capsule by ity of capsule 00:00: mouth in [place] [address] the Medical morning Branch and 1 capsule at noon and 1 capsule in the evening. methylpheni 2023-0 Yes [id number] 20mg Take 1 Univers date HCl 8-28 tablet by ity of (RITALIN) 00:00: mouth in [facility] 20 mg 00 the Medical tablet morning Branch and 1 tablet at noon and 1 tablet in the evening. gabapentin 2023-0 Yes 100mg Take 1 Univ ers 100 mg 8-28 capsule by ity of capsule 00:00: mouth in [place] 00 the Medical morning Branch and 1 capsule at noon and 1 capsule in the evening. methylpheni 2023-0 Yes [id number] 20mg Take 1 Univers date HCl 8-28 tablet by ity of (RITALIN) 00:00: [facility] Medical tablet morning Branch and 1 tablet at noon and 1 tablet in the evening. gabapentin 2023-0 Yes 100mg Take 1 Univ ers 100 mg 8-28 capsule by ity of capsule 00:00: mouth in [place] 00 the Medical morning Branch and 1 capsule at noon and 1 capsule in the evening. gabapentin 2023-0 Yes 100mg Take 1 Univ ers 100 mg 8-28 capsule by ity of capsule 00:00: mouth in [place] 00 the Medical morning Branch and 1 capsule at noon and 1 capsule in the evening. gabapentin 2023-0 Yes 100mg Take 1 Univ ers 100 mg 8-28 capsule by ity of capsule 00:00: mouth in [place] 00 the Medical morning Branch and 1 capsule at noon and 1 capsule in the evening. methylpheni 2023-0 2022- No [id number] 20mg Take 1 Univers date HCl 8-28 10-24 tablet by ity o f (RITALIN) 00:00: 00:00 mouth in [facility] as 20 mg 00 :00 the Medical tablet morning Branch and 1 tablet at noon and 1 tablet in the evening. methylpheni 2023-0 3- No [id number] 20mg Take 1 Univers date HCl 8-28 10-24 tablet by ity o f (RITALIN) 00:00: 00:00 mouth in [facility] as 20 mg 00 :00 the Medical tablet morning Branch and 1 tablet at noon and 1 tablet in the evening. cloBAZam 10 3-0 2023- No [id number] 10mg Take 1 Univers mg tablet 8-28 09-26 tablet by ity of 00:00: 00:00 mouth in [place] 00 :00 the Medical morning Branch and 1 tablet in the evening. amoxicillin 3-0 Yes [id number] 1{tbl} Q.5D Take 1 UT -clavulanat 7-26 tablet by [facility] 00:00: mouth in (Augmentin) 00 the 875-125 MG morning tablet and 1 tablet in the evening. clindamycin 3-0 Yes [id number] TAKE ONE UT (Cleocin) 7-26 CAPSULE BY [facility] 300 MG 00:00: MOUTH capsule 00 EVERY MORNING , ONE CAPSULE AT NOON AND 1 CAPSULE IN THE EVENING FOR 14 DAYS amoxicillin 3-0 Yes [id number] 1{tbl} Q.5D Take 1 UT -clavulanat 7-26 tablet by [facility] lt e 00:00: mouth in (Augmentin) 00 the 875-125 MG morning tablet and 1 tablet in the evening. clindamycin 3-0 Yes [id number] TAKE ONE UT (Cleocin) 7-26 CAPSULE BY [facility] 300 MG 00:00: MOUTH capsule 00 EVERY MORNING , ONE CAPSULE AT NOON AND 1 CAPSULE IN THE EVENING FOR 14 DAYS amoxicillin 3-0 Yes [id number] 1{tbl} Q.5D Take 1 UT -clavulanat 7-26 tablet by [facility] lt e 00:00: mouth in (Augmentin) 00 the 875-125 MG morning tablet and 1 tablet in the evening. mupirocin 2022-0 2022- No [id number] Q.[id number] Apply UT (Bactroban) 7- 07-30 [id number] topically Health 2 % 00:00: 04:59 3D 3 (three) ointment 00 :00 times a day for 10 days. methylpheni 2022-0 Yes [id number] 20mg Take 1 Univers date HCl 20 7-14 tablet by ity of mg tablet 00:00: [place] 00 [facility] morning Branch and 1 tablet in the evening. methylpheni 2022-0 Yes [id number] 20mg Take 1 Univers date HCl 20 7-14 tablet by ity of mg tablet 00:00: [place] 00 [facility] Medical morning Branch and 1 tablet in the evening. methylpheni 2023-0 Yes [id number] 20mg Take 1 Univers date HCl 20 7-14 tablet by ity of mg tablet 00:00: [place] 00 [facility] Medical morning Branch and 1 tablet in the evening. methylpheni 2022-0 3- No [id number] 20mg Take 1 Univers date HCl 20 7-14 08-28 tablet by it y of mg tablet 00:00: 00:00 mouth in [place] 00 :00 the [facility] Branch and 1 tablet in the evening. methylpheni 3- No [id number] 20mg Take 1 Univers date HCl 20 11-08 tablet by it y of mg tablet 00:00: 00:00 mouth in [place] 00 :00 the [facility] Branch and 1 tablet in the evening. clindamycin 0 3- No [id number] 300mg Q.[id number] Take 1 UT (Cleocin) 10-30 [id number] capsule Health 300 MG 00:00: 00:00 3D (300 mg capsule 00 :00 total) by mouth in the morning and 1 capsule (300 mg total) at noon and 1 capsule (300 mg total) in the evening. Do all this for 14 days. clindamycin 2022- No [id number] 300mg Q.[id number] Take 1 UT (Cleocin) 10-30 [id number] capsule Health 300 MG 00:00: 04:59 3D (300 mg capsule 00 :00 total) by mouth in the morning and 1 capsule (300 mg total) at noon and 1 capsule (300 mg total) in the evening. Do all this for 14 days. clindamycin 2022- No [id number] 300mg Q.24359955 Take 1 [facility] (Cleocin) 10-30 [id number] capsule Health 300 MG 00:00: 04:59 3D (300 mg capsule 00 :00 total) by mouth in the morning and 1 capsule (300 mg total) at noon and 1 capsule (300 mg total) in the evening. Do all this for 14 days. valproic Yes Take by UT acid 6-21 mouth. Health (Depakene) 13:34: 250 MG/5ML 26 oral liquid polyethylen 2022-0 Yes 17g QD Take 17 g U T e glycol 6-21 by mouth 1 Healt [facility] (Glycolax) 13:34: (one) time 17 GM/SCOOP 26 each day. powder senna 2022-0 Yes 1{tbl} QD Take 1 [facility] (Senokot) 6-21 tablet by Healt h 8.6 MG 13:34: mouth 1 tablet 26 (one) time each day. gabapentin 2023-0 Yes 400mg Q.[id number] Take 400 [facility] (Neurontin) 6-21 [id number] mg by H ealth 400 MG 13:34: 3D mouth 3 capsule 26 (three) times a day. docusate 2023-0 Yes 100mg Q.5D Take 100 [facility] sodium 6-21 mg by Health (Colace) 13:34: mouth 2 100 MG 26 (two) capsule times a day. valproic 2023-0 Yes Take by UT acid 6-21 mouth. Health (Depakene) 13:34: 250 MG/5ML 26 oral liquid polyethylen 2023-0 Yes 17g QD Take 17 g U T e glycol 6-21 by mouth 1 Healt h (Glycolax) 13:34: (one) time 17 GM/SCOOP 26 each day. powder senna 2023-0 Yes 1{tbl} QD Take 1 [facility] (Senokot) 6-21 tablet by Healt h 8.6 MG 13:34: mouth 1 tablet 26 (one) time each day. gabapentin 2023-0 Yes 400mg Q.[id number] Take 400 [facility] (Neurontin) 6-21 [id number] mg by H ealth 400 MG 13:34: 3D mouth 3 capsule 26 (three) times a day. docusate 2023-0 Yes 100mg Q.5D Take 100 [facility] sodium 6-21 mg by Health (Colace) 13:34: mouth 2 100 MG 26 (two) capsule times a day. valproic 2023-0 Yes Take by UT acid 6-21 mouth. Health (Depakene) 13:34: 250 MG/5ML 26 oral liquid polyethylen 2023-0 Yes 17g QD Take 17 g U T e glycol 6-21 by mouth 1 Healt [facility] (Glycolax) 13:34: (one) time 17 GM/SCOOP 26 each day. powder senna 2023-0 Yes 1{tbl} QD Take 1 [facility] (Senokot) 6-21 tablet by Healt h 8.6 MG 13:34: mouth 1 tablet 26 (one) time each day. gabapentin 2023-0 Yes 400mg Q.[id number] Take 400 [facility] (Neurontin) 6-21 [id number] mg by H ealth 400 MG 13:34: 3D mouth 3 capsule 26 (three) times a day. docusate 2023-0 Yes 100mg Q.5D Take 100 UT sodium 6-21 mg by Health (Colace) 13:34: mouth 2 100 MG 26 (two) capsule times a day. valproic 2023-0 Yes Take by UT acid 6-21 mouth. Health (Depakene) 13:34: 250 MG/5ML 26 oral liquid polyethylen 2023-0 Yes 17g QD Take 17 g U T e glycol 6-21 by mouth 1 Healt [facility] (Glycolax) 13:34: (one) time 17 GM/SCOOP 26 each day. powder senna 2023-0 Yes 1{tbl} QD Take 1 [facility] (Senokot) 6-21 tablet by Healt h 8.6 MG 13:34: mouth 1 tablet 26 (one) time each day. gabapentin 2023-0 Yes 400mg Q.[id number] Take 400 [facility] (Neurontin) 6-21 [id number] mg by H ealth 400 MG 13:34: 3D mouth 3 capsule 26 (three) times a day. docusate 2023-0 Yes 100mg Q.5D Take 100 UT sodium 6-21 mg by Health (Colace) 13:34: mouth 2 100 MG 26 (two) capsule times a day. clindamycin 2023-0 Yes 300 mg = 2 Memoria 150 mg oral 6-12 cap, PO, l capsule 13:09: ABXQ6H, X Brianna nn 00 14 day, # 112 cap, 0 Refill(s), Pharmacy: [facility] [id number], 162.56, cm, 10/07/22 0:27:00 CDT, Height, 60.227, kg, 10/07/22 0:27:00 CDT, Weight ibuprofen 3-0 Yes 600 mg = 1 Me moria 600 mg oral 6-12 tab, PO, l tablet 13:09: Q6H, 0 [place] 00 Refill(s) acetaminoph 2023-0 Yes 650 mg = 2 Memoria en 325 mg 6-12 tab, PO, l oral 13:08: Q6H, 0 [place] tablet. 00 Refill(s) valproic 3-0 Yes Take by UT acid 6-07 mouth. Health (Depakene) 13:23: 250 MG/5ML 40 oral liquid polyethylen 3-0 Yes 17g QD Take 17 g U T e glycol 6-07 by mouth 1 Healt [facility] (Glycolax) 13:23: (one) time 17 GM/SCOOP 40 each day. powder senna 2022-0 Yes 1{tbl} QD Take 1 [facility] (Senokot) 6-07 tablet by Healt h 8.6 MG 13:23: mouth 1 tablet 40 (one) time each day. gabapentin 2022-0 Yes 400mg Q.[id number] Take 400 [facility] (Neurontin) 6-07 [id number] mg by H ealth 400 MG 13:23: 3D mouth 3 capsule 40 (three) times a day. docusate 2022-0 Yes 100mg Q.5D Take 100 [facility] sodium 6-07 mg by Health (Colace) 13:23: mouth 2 100 MG 40 (two) capsule times a day. mupirocin 2022-0 2022- No [id number] Q.[id number] Apply [facility] (Bactroban) 09-18 06-04 [id number] topically Health 2 % 00:00: 04:59 3D 3 (three) ointment 00 :00 times a day for 10 days. gabapentin 2022-0 Yes [id number] 100mg Take 1 [facility] 100 mg 5-23 9105 capsule by ity of capsule 00:00: mouth in [address] and 1 capsule at noon and 1 capsule in the evening. cloBAZam 10 2022-0 Yes [id number] 10mg Take 1 [facility] mg tablet 5-23 tablet by ity o f 00:00: mouth in [address] and 1 tablet in the evening. methylpheni 2023-0 Yes [id number] 20mg Take 1 [facility] date HCl 20 5-23 tablet by ity of mg tablet 00:00: mouth in [address] and 1 tablet in the evening. gabapentin 2022-0 Yes [id number] 100mg Take 1 [facility] 100 mg 5-23 9105 capsule by ity of capsule 00:00: mouth in [address] and 1 capsule at noon and 1 capsule in the evening. cloBAZam 10 2022-0 Yes [id number] 10mg Take 1 [facility] mg tablet 5-23 tablet by ity o f 00:00: mouth in [place] 00 the Medical morning Branch and 1 tablet in the evening. gabapentin 3-0 Yes [id number] 100mg Take 1 [facility] 100 mg 5-23 9105 capsule by ity of capsule 00:00: mouth in [place] [address] the Medical morning Branch and 1 capsule at noon and 1 capsule in the evening. cloBAZam 10 2022-0 Yes [id number] 10mg Take 1 [facility] mg tablet 5-23 tablet by ity o f 00:00: mouth in [place] [address] the Medical morning Branch and 1 tablet in the evening. gabapentin 2022-0 Yes [id number] 100mg Take 1 [facility] 100 mg 5-23 9105 capsule by ity of capsule 00:00: mouth in [place] [address] the Medical morning Branch and 1 capsule at noon and 1 capsule in the evening. cloBAZam 10 2022-0 Yes [id number] 10mg Take 1 [facility] mg tablet 5-23 tablet by ity o f 00:00: mouth in [place] [address] the [facility] morning [place] and 1 tablet in the evening. gabapentin 2022-0 2022- No [id number] 100mg Take 1 [facility] 100 mg 5-23 08-28 9105 capsule by ity of capsule 00:00: 00:00 mouth in [place] 00 :00 the Medical morning Branch and 1 capsule at noon and 1 capsule in the evening. cloBAZam 10 2022-0 2022- No [id number] 10mg Take 1 [facility] mg tablet 5-23 08-28 tablet by ity of 00:00: 00:00 mouth in [place] 00 :00 the Medical morning Branch and 1 tablet in the evening. gabapentin 2022-0 2022- No [id number] 100mg Take 1 [facility] 100 mg 5-23 08-28 9105 capsule by ity of capsule 00:00: 00:00 mouth in [place] 00 :00 the Medical morning Branch and 1 capsule at noon and 1 capsule in the evening. cloBAZam 10 2022-0 2022- No [id number] 10mg Take 1 [facility] mg tablet 5-23 08-28 tablet by ity of 00:00: 00:00 mouth in [place] 00 :00 the Medical morning Branch and 1 tablet in the evening. methylpheni 2022-2022- No [id number] 20mg Take 1 [facility] date HCl 20 -17 11-14 tablet by it y of mg tablet 00:00: 00:00 mouth in [place] 00 :00 the Medical morning Branch and 1 tablet in the evening. methylpheni 2023-0 2023- No [id number] 20mg Take 1 [facility] date HCl 20 5-17 11-14 tablet by it y of mg tablet 00:00: 00:00 mouth in [place] 00 :00 the Medical morning Branch and 1 tablet in the evening. valproic 2023-0 Yes Take by UT acid 5-01 mouth. Health (Depakene) 15:16: 250 MG/5ML 28 oral liquid polyethylen 2023-0 Yes 17g QD Take 17 g U T e glycol 5-01 by mouth 1 Healt h (Glycolax) 15:16: (one) time 17 GM/SCOOP 28 each day. powder senna 2023-0 Yes 1{tbl} QD Take 1 [facility] (Senokot) 5-01 tablet by Healt h 8.6 MG 15:16: mouth 1 tablet 28 (one) time each day. gabapentin 2023-0 Yes 400mg Q.[id number] Take 400 [facility] (Neurontin) 5-01 [id number] mg by H ealth 400 MG 15:16: 3D mouth 3 capsule 28 (three) times a day. docusate 2023-0 Yes 100mg Q.5D Take 100 [facility] sodium 5-01 mg by Health (Colace) 15:16: mouth 2 100 MG 28 (two) capsule times a day. valproic 2023-0 Yes Take by UT acid 5-01 mouth. Health (Depakene) 15:16: 250 MG/5ML 28 oral liquid polyethylen 2023-0 Yes 17g QD Take 17 g U T e glycol 5-01 by mouth 1 Healt h (Glycolax) 15:16: (one) time 17 GM/SCOOP 28 each day. powder senna 2023-0 Yes 1{tbl} QD Take 1 [facility] (Senokot) 5-01 tablet by Healt h 8.6 MG 15:16: mouth 1 tablet 28 (one) time each day. gabapentin 2023-0 Yes 400mg Q.[id number] Take 400 [facility] (Neurontin) 5-01 [id number] mg by H ealth 400 MG 15:16: 3D mouth 3 capsule 28 (three) times a day. docusate 2023-0 Yes 100mg Q.5D Take 100 [facility] sodium 5-01 mg by Health (Colace) 15:16: mouth 2 100 MG 28 (two) capsule times a day. valproic 2023-0 Yes Take by UT acid 4-19 mouth. Health (Depakene) 13:17: 250 MG/5ML 55 oral liquid polyethylen 2023-0 Yes 17g QD Take 17 g U T e glycol 4-19 by mouth 1 Healt h (Glycolax) 13:17: (one) time 17 GM/SCOOP 55 each day. powder senna 2023-0 Yes 1{tbl} QD Take 1 [facility] (Senokot) 4-19 tablet by Healt h 8.6 MG 13:17: mouth 1 tablet 55 (one) time each day. gabapentin 2023-0 Yes 400mg Q.[id number] Take 400 [facility] (Neurontin) 4-19 [id number] mg by H ealth 400 MG 13:17: 3D mouth 3 capsule 55 (three) times a day. docusate 2023-0 Yes 100mg Q.5D Take 100 [facility] sodium 4-19 mg by Health (Colace) 13:17: mouth 2 100 MG 55 (two) capsule times a day. methylpheni 2023-0 Yes [id number] 20mg Take 1 [facility] date HCl 20 4-17 tablet by ity of mg tablet 00:00: mouth in [place] the Medical morning Branch and 1 tablet in the evening. methylpheni 2023-0 Yes [id number] 20mg Take 1 [facility] date HCl 20 4-17 tablet by ity of mg tablet 00:00: mouth in [place] the Medical morning Branch and 1 tablet in the evening. methylpheni 2023-0 2023- No [id number] 20mg Take 1 [facility] date HCl 20 4-17 05-23 tablet by it y of mg tablet 00:00: 00:00 mouth in [place] 00 :00 the Medical morning Branch and 1 tablet in the evening. cloBAZam 2023-0 2023- No 10mg Q.5D Take 10 mg [facility] (Onfi) 2.5 4-05 04-05 by mouth Heal th mg/mL 14:49: 00:00 twice a suspension 03 :00 day. valproic 2023-0 Yes Take by UT acid 4-05 mouth. Health (Depakene) 14:49: 250 MG/5ML 00 oral liquid polyethylen 2023-0 Yes 17g QD Take 17 g U T e glycol 4-05 by mouth 1 Healt h (Glycolax) 14:49: (one) time 17 GM/SCOOP 00 each day. powder senna 2023-0 Yes 1{tbl} QD Take 1 [facility] (Senokot) 4-05 tablet by Healt h 8.6 MG 14:49: mouth 1 tablet 00 (one) time each day. gabapentin 2023-0 Yes 400mg Q.[id number] Take 400 [facility] (Neurontin) 4-05 [id number] mg by H ealth 400 MG 14:49: 3D mouth 3 capsule 00 (three) times a day. docusate 2023-0 Yes 100mg Q.5D Take 100 [facility] sodium 4-05 mg by Health (Colace) 14:49: mouth 2 100 MG 00 (two) capsule times a day. methylpheni 2023-0 Yes [id number] 20mg Take 1 [facility] date HCl 20 3-15 tablet by ity of mg tablet 00:00: mouth in [place] the Medical morning Branch and 1 tablet in the evening. methylpheni 2023-0 Yes [id number] 20mg Take 1 [facility] date HCl 20 3-15 tablet by ity of mg tablet 00:00: mouth in [place] 00 the Medical morning Branch and 1 tablet in the evening. methylpheni 2023-0 2023- No [id number] 20mg Take 1 [facility] date HCl 20 3-15 04-17 tablet by it y of mg tablet 00:00: 00:00 mouth in [place] 00 :00 the Medical morning Branch and 1 tablet in the evening. methylpheni 2023-0 Yes [id number] 20mg Take 1 [facility] date HCl 20 2-07 tablet by ity of mg tablet 00:00: mouth in [place] 00 the Medical morning Branch and 1 tablet in the evening. methylpheni 2023-0 Yes [id number] 20mg Take 1 [facility] date HCl 20 2-07 tablet by ity of mg tablet 00:00: mouth in [place] 00 the Medical morning Branch and 1 tablet in the evening. methylpheni 2023-0 Yes [id number] 20mg Take 1 [facility] date HCl 20 2-07 tablet by ity of mg tablet 00:00: mouth in [place] 00 the Medical morning Branch and 1 tablet in the evening. methylpheni 2023-0 Yes [id number] 20mg Take 1 [facility] date HCl 20 2-07 tablet by ity of mg tablet 00:00: mouth in [place] 00 the Medical morning Branch and 1 tablet in the evening. methylpheni 2023-0 Yes [id number] 20mg Take 1 [facility] date HCl 20 2-07 tablet by ity of mg tablet 00:00: mouth in [place] 00 the Medical morning Branch and 1 tablet in the evening. methylpheni 2023-0 Yes [id number] 20mg Take 1 [facility] date HCl 20 2-07 tablet by ity of mg tablet 00:00: mouth in [place] 00 the Medical morning Branch and 1 tablet in the evening. methylpheni 3-0 Yes [id number] 20mg Take 1 [facility] date HCl 20 2-07 tablet by ity of mg tablet 00:00: mouth in [place] 00 the Medical morning Branch and 1 tablet in the evening. methylpheni 3-0 Yes [id number] 20mg Take 1 [facility] date HCl 20 2-07 tablet by ity of mg tablet 00:00: mouth in [place] 00 the Medical morning Branch and 1 tablet in the evening. methylpheni 2023-0 2023- No [id number] 20mg Take 1 [facility] date HCl 20 2-07 03-15 tablet by it y of mg tablet 00:00: 00:00 mouth in [place] 00 :00 the Medical morning Branch and 1 tablet in the evening. mupirocin 3-0 Yes 2599 [facility] (Bactroban) 2-01 Health 2 % cream 19:30: 00 methylpheni 2-1 Yes [id number] 20mg Take 1 [facility] date HCl 20 2-16 tablet by ity of mg tablet 00:00: mouth in [place] 00 the Medical morning Branch and 1 tablet in the evening. methylpheni 2-1 Yes [id number] 20mg Take 1 [facility] date HCl 20 2-16 tablet by ity of mg tablet 00:00: mouth in [place] 00 the Medical morning Branch and 1 tablet in the evening. methylpheni 2021-04- No [id number] 20mg Take 1 [facility] date HCl 20 2-16 02-07 tablet by it y of mg tablet 00:00: 00:00 mouth in [place] 00 :00 the Medical morning Branch and 1 tablet in the evening. methylpheni 2021-04 Yes [id number] 20mg Take 1 [facility] date HCl 20 2-05 tablet by ity of mg tablet 00:00: mouth in [place] 00 the Medical morning Branch and 1 tablet in the evening. methylpheni 2021-04 Yes [id number] 20mg Take 1 [facility] date HCl 20 2-05 tablet by ity of mg tablet 00:00: mouth in [place] 00 the Medical morning Branch and 1 tablet in the evening. methylpheni 2021-04- No [id number] 20mg Take 1 [facility] date HCl 20 2-05 12-16 tablet by it y of mg tablet 00:00: 00:00 mouth in [place] 00 :00 the Medical morning Branch and 1 tablet in the evening. methylpheni 2021-04- No [id number] 20mg Take 1 [facility] date HCl 20 2-05 12-16 tablet by it y of mg tablet 00:00: 00:00 mouth in [place] 00 :00 the Medical morning Branch and 1 tablet in the evening. cloBAZam 10 2021-04 Yes [id number] TAKE ONE [facility] mg tablet 1-03 TABLET BY ity o f 00:00: MOUTH [place] 00 TWICE A Medical DAY Branch cloBAZam 10 2021-04 Yes [id number] TAKE ONE [facility] mg tablet 1-03 TABLET BY ity o f 00:00: MOUTH [place] 00 TWICE A Medical DAY Branch cloBAZam 10 2021-04 Yes [id number] TAKE ONE [facility] mg tablet 1-03 TABLET BY ity o f 00:00: MOUTH [place] 00 TWICE A Medical DAY Branch cloBAZam 10 2021-04 Yes [id number] TAKE ONE [facility] mg tablet 1-03 TABLET BY ity o f 00:00: MOUTH [place] 00 TWICE A Medical DAY Branch cloBAZam 10 2021-04 Yes [id number] TAKE ONE [facility] mg tablet 1-03 TABLET BY ity o f 00:00: MOUTH [place] 00 TWICE A Medical DAY Branch cloBAZam 10 2021-04 Yes [id number] TAKE ONE [facility] mg tablet 1-03 TABLET BY ity o f 00:00: MOUTH [place] 00 TWICE A Medical DAY Branch cloBAZam 10 2021-04 Yes [id number] TAKE ONE [facility] mg tablet 1-03 TABLET BY ity o f 00:00: MOUTH [place] 00 TWICE A Medical DAY Branch cloBAZam 10 2021-04 Yes [id number] TAKE ONE [facility] mg tablet 1-03 TABLET BY ity o f 00:00: MOUTH [place] 00 TWICE A Medical DAY Branch cloBAZam 10 2021-04 Yes [id number] TAKE ONE [facility] mg tablet 1-03 TABLET BY ity o f 00:00: MOUTH [place] 00 TWICE A Medical DAY Branch cloBAZam 10 2021-04 Yes [id number] TAKE ONE [facility] mg tablet 1-03 TABLET BY ity o f 00:00: MOUTH [place] 00 TWICE A Medical DAY Branch cloBAZam 10 2021-04 Yes [id number] TAKE ONE [facility] mg tablet 1-03 TABLET BY ity o f 00:00: MOUTH [place] 00 TWICE A Medical DAY Branch cloBAZam 10 2021-04 Yes [id number] TAKE ONE [facility] mg tablet 1-03 TABLET BY ity o f 00:00: MOUTH [place] 00 TWICE A Medical DAY Branch cloBAZam 10 2021-04 Yes [id number] TAKE ONE [facility] mg tablet 1-03 TABLET BY ity o f 00:00: MOUTH [place] 00 TWICE A Medical DAY Branch cloBAZam 10 2021-04 Yes [id number] TAKE ONE [facility] mg tablet 1-03 TABLET BY ity o f 00:00: MOUTH [place] 00 TWICE A Medical DAY Branch cloBAZam 10 2021-04 Yes [id number] TAKE ONE [facility] mg tablet 1-03 TABLET BY ity o f 00:00: MOUTH [place] 00 TWICE A Medical DAY Branch cloBAZam 10 2021-04 Yes [id number] TAKE ONE [facility] mg tablet 1-03 TABLET BY ity o f 00:00: MOUTH [place] 00 TWICE A Medical DAY Branch cloBAZam 10 2021-04 Yes [id number] TAKE ONE [facility] mg tablet 1-03 TABLET BY ity o f 00:00: MOUTH [place] 00 TWICE A Medical DAY Branch cloBAZam 10 2021-04 Yes [id number] TAKE ONE [facility] mg tablet 1-03 TABLET BY ity o f 00:00: MOUTH [place] 00 TWICE A Medical DAY Branch cloBAZam 10 2021-04 Yes [id number] TAKE ONE [facility] mg tablet 1-03 TABLET BY ity o f 00:00: MOUTH 00 TWICE A Medical DAY Branch cloBAZam 10 2021-04- No [id number] TAKE ONE [facility] mg tablet 1-03 05-23 TABLET BY ity of 00:00: 00:00 MOUTH [place] 00 :00 TWICE A Medical DAY Branch methylpheni 2021-04 Yes [id number] 20mg Take 1 [facility] date HCl 20 1-02 tablet by ity of mg tablet 00:00: mouth in [place] the Medical morning Branch and 1 tablet in the evening. methylpheni 2021-04 Yes [id number] 20mg Take 1 [facility] date HCl 20 1-02 tablet by ity of mg tablet 00:00: mouth in [place] 00 the Medical morning Branch and 1 tablet in the evening. methylpheni 2021-04- No [id number] 20mg Take 1 [facility] date HCl 20 1-02 12-05 tablet by it y of mg tablet 00:00: 00:00 mouth in [place] 00 :00 the Medical morning Branch and 1 tablet in the evening. gabapentin 2021-04 Yes 400mg Q.[id number] Take 400 [facility] (Neurontin) 0-14 [id number] mg by H ealth 400 MG 10:14: 3D mouth 3 capsule 00 (three) times a day. mupirocin 2021-04 Yes Q.[id number] Apply U T (Bactroban) 0-14 [id number] topically Health 2 % 10:14: 3D 3 [...] time each day. gabapentin 2021-04 Yes 400mg Q.[id number] Take 400 [facility] (Neurontin) 0-14 [id number] mg by H ealth 400 MG 10:14: 3D mouth 3 capsule 00 (three) times a day. mupirocin 2021-04 Yes Q.[id number] Apply U T (Bactroban) 0-14 [id number] topically Health 2 % 10:14: 3D 3 [...] time each day. gabapentin 2021-04 Yes 400mg Q.[id number] Take 400 [facility] (Neurontin) 0-14 [id number] mg by H ealth 400 MG 10:14: 3D mouth 3 capsule 00 (three) times a day. mupirocin 2021-04 Yes Q.[id number] Apply U T (Bactroban) 0-14 [id number] topically Health 2 % 10:14: 3D 3 [...] time each day. gabapentin 2021-04 Yes 400mg Q.[id number] Take 400 [facility] (Neurontin) 0-14 [id number] mg by H ealth 400 MG 10:14: 3D mouth 3 capsule 00 (three) times a day. mupirocin 2021-04 Yes Q.[id number] Apply U T (Bactroban) 0-14 [id number] topically Health 2 % 10:14: 3D 3 [...] tablet 00 (one) time each day. methylpheni Yes [id number] 20mg Take 1 [facility] date HCl 20 9-27 tablet by ity of mg tablet 00:00: mouth in [place] 00 the Medical morning Branch and 1 tablet in the evening. methylpheni 0 Yes [id number] 20mg Take 1 [facility] date HCl 20 9-27 tablet by ity of mg tablet 00:00: mouth in [place] 00 the Medical morning Branch and 1 tablet in the evening. methylpheni Yes [id number] 20mg Take 1 [facility] date HCl 20 9-27 tablet by ity of mg tablet 00:00: mouth in [place] 00 the Medical morning Branch and 1 tablet in the evening. methylpheni 2021- No [id number] 20mg Take 1 [facility] date HCl 20 9-27 11-02 tablet by it y of mg tablet 00:00: 00:00 mouth in [place] 00 :00 the Medical morning Branch and 1 tablet in the evening. methylpheni Yes [id number] 20mg Take 1 [facility] date HCl 20 8-26 109 tablet by ity of mg tablet 00:00: mouth in [place] 00 the Medical morning Branch and 1 tablet in the evening. methylpheni 2021- No [id number] 20mg Take 1 [facility] date HCl 20 8-26 09-27 tablet by it y of mg tablet 00:00: 00:00 mouth in [place] 00 :00 the Medical morning Branch and 1 tablet in the evening. traMADol 2021-2021- No [id number] 50mg Q6H Take 1 [facility] (Ultram) 50 8-17 08-23 tablet (50 H ealth MG tablet 00:00: 04:59 mg total) 00 :00 by mouth every 6 (six) hours if needed for severe pain for up to 5 days. traMADol 2021- No [id number] 50mg Q6H Take 1 [facility] (Ultram) 50 8-10 08-16 tablet (50 H ealth MG tablet 00:00: 04:59 mg total) 00 :00 by mouth every 6 (six) hours if needed for severe pain for up to 5 days. aspirin No Notes: Do Memor ia 12-01 not crush l 14:00: or chew. (Same As: Ecotrin) traMADol No [id number] 50mg Q6H Take 1 U T (Ultram) 50 8 08-10 tablet (50 H ealth MG tablet 00:00: 00:00 mg total) 00 :00 by mouth every 6 (six) hours if needed for severe pain for up to 5 days. docusate No Notes: Memoria - (Same as: l 22:00: Colace) (Do Not Crush) CeleBREX No Notes: Memoria 11-30 NSAID. l 22:00: Please check indication . Not for seizure. (Same As: CeleBREX) clobazam No Notes: Memoria - (Same as: l 22:00: Onfi) reserved for Neurology use only methylpheni No Notes: Dannie pat date 11-30 (Same as l 22:00: :Ritalin) metoprolol No Notes: Memor ia tartrate 11-30 (Same as: l 22:00: Lopressor) ceFAZolin No Notes: Memori a 11-30 (Same as l 21:00: Ancef) gabapentin No Notes: Memor ia 300 mg oral 11-30 (Same as: l capsule 21:00: Neurontin) ceFAZolin No Notes: Memori a - (Same as l 19:00: Ancef) Keflex No 500 mg, 1 Memori a 11-30 cap, l 19:00: Route: PO, Drug form: [...] 0 acetaminoph No Notes: Max Memoria en - acetaminop l 18:48: hen = [place] 00 4000mg/day (4 gm/day). (Same as: Tylenol) ibuprofen No Notes: Memori a 11-30 (Same as: l 18:48: Motrin) [place] 00 "Do Not Crush" Give with food. [place] 5/325 No Notes: Dannie pat oral tablet 11-30 (Same as: l 18:48: [place] D[place] 00 325/5) Do not exceed 4gm/day of acetaminop hen. ondansetron No Notes: Dannie pat - (Same as: l 18:48: Zofran) [place] 00 MEDICATION WASTE Product Size: 4 mg Product Wasted: ___ mg ibuprofen Yes 600 mg = 1 Me moria 600 mg oral 11-30 tab, PO, l tablet 15:11: Q6H, PRN [place] 00 Pain or Fever, Take with food, X 10 day, # 40 tab, 0 Refill(s) acetaminoph Yes 500 mg = 1 Memoria en 500 mg -05 tab, PO, l oral 15:10: Q6H, PRN [place] tablet. 00 Pain/Fever , X 7 day, # 28 tab, 0 Refill(s) sugammadex No Route: IV, M emoria (ANES) 11-30 Drug form: l 15:02: SOLN, [place] 00 ONCE, Stop date: 11/30/21 10:02:00 CDT ondansetron No Route: IV, Memoria (ANES) 11-30 Drug form: l 14:35: INJ, ONCE, Stop date: 11/30/21 9:35:00 CDT ketOROLAC No IV, ONCE Dannie pat (ANES) 11-30 [...] ONCE, Stop date: 11/30/21 8:54:00 CDT lidocaine No Route: IV, Me moria (ANES) 11-30 Drug form: l 13:39: INJ, ONCE, Stop date: 11/30/21 8:39:00 CDT propofol No Route: IV, Mem oria (ANES) 11-30 Drug form: l 13:39: INJ, ONCE, Stop date: 11/30/21 8:39:00 CDT rocuronium No Route: IV, M emoria (ANES) 11-30 Drug form: l 13:39: INJ, ONCE, Stop date: 11/30/21 8:39:00 CDT fentaNYL No Route: IV, Mem oria (ANES) 11-30 Drug form: l 13:39: INJ, ONCE, Stop date: 11/30/21 8:39:00 CDT ceFAZolin No Route: IV, Me moria (ANES) 8-05 Drug form: l 13:39: INJ, ONCE, Stop date: 11/30/21 8:39:00 CDT ANES No Notes: Memoria hydrALAZINE 8-05 (Same [...] l mg 13:37: Roxicodone ) release tablet ANES No Notes: Memoria HYDROmorpho 8-05 Same as: l ne 13:37: Dilaudid No Notes: Memoria flumazenil 8-05 (Same as: l 13:37: Romazicon) ANES No Notes: Memoria naloxone 8-05 Same as l 13:37: Narcan No Notes: Memoria ondansetron 8-05 (Same as: l 13:37: Zofran) MEDICATION WASTE Product Size: 4 mg Product Wasted: ___ mg ANES No Notes: Memoria dexamethaso 11-30 Concentrat l ne 13:37: ion: 4mg/ml midazolam No Route: IV, Me moria (ANES) 11-30 Drug form: l 13:29: SOLN, [place] 00 ONCE, Stop date: 11/30/21 8:29:00 CDT Isolyte S No Route: IV, Me moria PH 7.4 11-30 Total l (ANES) 1000 12:50: Volume: Her [place] mL 00 1,000, Start date: 11/30/21 7:50:00 CDT, Stop date: 11/30/21 8:50:00 CDT tramadol 50 Yes 50 mg = 1 M emoria mg oral 7-20 tab, PO, l tablet 12:30: Q6H, PRN Pain Score 1-3, X 7 day, # 28 tab, 0 Refill(s), Pharmacy: [facility] [id number], 162.56, cm, 11/08/21 8:33:00 CDT, Height, 59.3, kg, 11/08/21 8:33:00 CDT, Weight MiraLax No Notes: Memoria 7-19 Dissolve l 14:00: in 8 oz of water or juice. (Same as: Miralax) senna No Notes: Memoria 7-19 (Same as: l 14:00: Senokot) methylpheni No Notes: Dannie pat date 11-10 (Same as l 18:00: :Ritalin) Milk of [...] No Notes: Memor ia 100 mg oral 15 (Same as: l capsule 14:00: Neurontin) methylpheni No Notes: Dannie pat date -15 (Same as l 14:00: :Ritalin) metoprolol No Notes: Memor ia tartrate -15 (Same as: l 14:00: Lopressor) ondansetron No Route: IV, Memoria (ANES) 7- Drug form: l 23:51: INJ, ONCE, Stop date: 11/08/21 18:51:00 CDT Lactated No Route: IV, Mem oria Ringers -14 Total l Injection 23:01: Volume: Brianna nn IV (ANES) 00 1,000, 1000 mL Start date: 11/08/21 18:01:00 CDT, Stop date: 11/08/21 19:01:00 CDT Lactated No 1,000 mL, Dannie pat Ringers IV -14 Rate: 125 l 1,000 mL 22:57: ml/hr, Infuse over: 8 hr, Route: IV, Dosing Weight 59.3 kg, Total Volume: 1,000, Start date: 11/08/21 17:57:00 CDT, Duration: 30 day, Stop date: 12/08/21 17:56:00 CDT, BSA: 1.65 m2, 0 Saline No Notes: Memoria Flush 0.9% -14 (Same as: l 22:57: BD Posiflush) tramadol No Notes: Not Mem oria 7-14 to exceed l 22:56: 400mg/day. (Same As: Ultram) Dilaudid 2022-0 No Notes: Memoria 7-14 Same as l 22:56: Dilaudid Duy 00 ANES 0 No 5 mg, Memoria oxyCODONE 5 7-14 Route: PO, l mg 19:39: Drug form: Duy immediate 00 TAB, Q4H, release Dosing tablet Weight 59.3, kg, PRN Pain Score 4-6, Start date: 11/08/21 14:39:00 CDT, Duration: 30 day, Stop date: 12/08/21 14:38:00 CDT ANES 2021-0 No 5 mg, Memoria oxyCODONE 7-14 Route: NG, l 19:39: Drug form: [place] 00 LIQ, Q4H, Dosing Weight 59.3, kg, PRN Pain Score 4-6, Start date: 11/08/21 14:39:00 CDT, Duration: 30 day, Stop date: 12/08/21 14:38:00 CDT ANES 0 No 0.5 mg, Memoria HYDROmorpho 7- Route: l ne 19:39: IVP, [place] 00 Q15Min, Dosing Weight 59.3, kg, PRN Pain Score 7-10, Start date: 11/08/21 14:39:00 CDT, Duration: 4 doses or times, Stop date: Limited # of times ANES 0 No 25 Memoria fentaNYL 7-14 microgram, l 19:39: Route: Duy 00 IVP, Q5Min, Dosing Weight 59.3, kg, PRN Pain Score 7-10, Priority: Routine, Start date: 11/08/21 14:39:00 CDT, Duration: 2 doses or times, Stop date: Limited # of times ANES 0 No 0.2 mg, Memoria flumazenil 7-14 Route: l 19:39: IVP, PRN, Duy 00 Dosing Weight 59.3, kg, PRN Benzodiaze pine Reversal, Initial dose, Start date: 11/08/21 14:39:00 CDT, Duration: 30 day, Stop date: 12/08/21 14:38:00 CDT ANES 0 No 0.4 mg, Memoria naloxone 7-14 Route: l 19:39: IVP, [place] 00 Q2MIN, Dosing Weight 59.3, kg, PRN [...] ONCE, Stop date: 11/08/21 11:26:00 CDT phenylephri No Route: IV, Memoria ne (ANES) 11-08 Drug form: l 16:21: INJ, ONCE, Stop date: 11/08/21 11:21:00 CDT fentaNYL No Route: IV, Mem oria (ANES) 11-08 Drug form: l 16:01: INJ, ONCE, Stop date: 11/08/21 11:01:00 CDT dexamethaso No Route: IV, Memoria ne (ANES) 11-08 Drug form: l 15:46: INJ, ONCE, Stop date: 11/08/21 10:46:00 CDT midazolam No Route: IV, Me moria (ANES) 11-08 Drug form: l 15:40: SOLN, 00 ONCE, Stop date: 11/08/21 10:40:00 CDT lidocaine No Route: IV, Me moria (ANES) 11-08 Drug form: l 15:40: INJ, ONCE, Stop date: 11/08/21 10:40:00 CDT propofol No Route: IV, Mem oria (ANES) 11-08 Drug form: l 15:40: INJ, ONCE, Stop date: 11/08/21 10:40:00 CDT rocuronium No Route: IV, M emoria (ANES) 714 Drug form: l 15:40: INJ, ONCE, Stop date: 11/08/21 10:40:00 CDT fentaNYL 0 No Route: IV, Mem oria (ANES) 11-08 Drug form: l 15:40: INJ, ONCE, Stop date: 11/08/21 10:40:00 CDT Sodium No Route: IV, Memor ia Chloride 11-08 Drug form: l 0.9% IV 14:39: INJ, Start Herm shama (ANES) 235 00 date: mL + 11/08/21 vancomycin 9:39:00 (ANES) 1500 CDT, Stop mg date: 11/08/21 10:39:00 CDT Isolyte S No Route: IV, Me moria PH 7.4 7-14 Total l (ANES) 1000 14:00: Volume: Her [place] mL 00 1,000, Start date: 11/08/21 9:00:00 CDT, Stop date: 11/08/21 10:00:00 CDT Tylenol No 1,000 mg, Memor ia 11-08 Route: PO, l 12:23: ONCE, Dosing Weight 61.364, kg, Priority: NOW, Start date: 11/08/21 7:23:00 CDT, Stop date: 11/08/21 7:23:00 CDT metoprolol 0 Yes 25 mg = 1 Me moria tartrate 25 7-12 tab, PO, l mg oral 13:34: BID, # 180 Herm shama tablet 00 tab, 0 Refill(s) aspirin 81 0 Yes 81 mg = 1 Me moria mg oral 7-12 cap, PO, l capsule 13:34: QAM, 0 [place] 00 Refill(s) methylpheni Yes 20 mg = 1 M emoria date 20 mg 7-12 tab, PO, l oral tablet 13:34: BID, # 60 H ermann 00 tab, 0 Refill(s) Vitamin C No See Memoria 7-12 Instructio l 13:34: ns, Unk dose 1 tab PO QAM, 0 Refill(s) multivitami No 1 tab, PO, Memoria n 7-12 QAM, 0 l 13:34: Refill(s) clobazam 10 Yes 10 mg, PO, Memoria mg oral 7-12 BID, # 60 l tablet 13:33: tab, 0 [place] Refill(s) gabapentin Yes 100 mg = 1 M emoria 100 mg oral 11-06 cap, PO, l capsule 13:33: QAM, # 90 Brianna nn 00 cap, 1 Refill(s) methylpheni Yes [id number] 20mg Take 1 [facility] date HCl 20 7 109 tablet by [facility] of mg tablet 00:00: mouth 2 (two) Medical times [facility] daily. gabapentin Yes [id number] 100mg Take 1 [facility] 100 mg 10-26 9105 capsule by [facility] of capsule 00:00: mouth (three) Medical times [facility] daily. cloBAZam 10 Yes [id number] 10mg Take 1 [facility] mg tablet 7- tablet by ity o f 00:00: mouth 2 (two) Medical times [facility] daily. methylpheni Yes [id number] 20mg Take 1 [facility] date HCl 20 10-26 109 tablet by ity of mg tablet 00:00: mouth 2 (two) Medical times [facility] daily. gabapentin Yes [id number] 100mg Take 1 [facility] 100 mg 7- 9105 capsule by [facility]y of capsule 00:00: mouth 3 (three) Medical times [facility] daily. cloBAZam 10 Yes [id number] 10mg Take 1 [facility] mg tablet 7- tablet by ity o f 00:00: mouth 2 (two) Medical times [facility] daily. gabapentin Yes [id number] 100mg Take 1 [facility] 100 mg 7- 9105 capsule by [facility]y of capsule 00:00: mouth 3 (three) Medical times [facility] daily. cloBAZam 10 2022-0 Yes [id number] 10mg Take 1 [facility] mg tablet 7-01 tablet by ity o f 00:00: mouth 2 (two) Medical times [facility] daily. gabapentin 2-0 Yes [id number] 100mg Take 1 [facility] 100 mg 7- 9105 capsule by ity of capsule 00:00: mouth 3 (three) Medical times [facility] daily. cloBAZam 10 2021-0 Yes [id number] 10mg Take 1 [facility] mg tablet 7-01 tablet by ity o f 00:00: mouth 2 (two) Medical times [facility] daily. gabapentin 2021-0 Yes [id number] 100mg Take 1 [facility] 100 mg 7- 9105 capsule by ity of capsule 00:00: mouth 3 (three) Medical times [facility] daily. cloBAZam 10 2021-0 Yes [id number] 10mg Take 1 [facility] mg tablet 7-01 tablet by ity o f 00:00: mouth (two) Medical times [facility] daily. gabapentin 2021-0 Yes [id number] 100mg Take 1 [facility] 100 mg 7- 9105 capsule by ity of capsule 00:00: mouth (three) Medical times [facility] daily. cloBAZam 10 2021-0 Yes [id number] 10mg Take 1 [facility] mg tablet 7-01 tablet by ity o f 00:00: mouth (two) Medical times [facility] daily. gabapentin 2021-0 Yes [id number] 100mg Take 1 [facility] 100 mg 7- 9105 capsule by ity of capsule 00:00: mouth (three) Medical times [facility] daily. cloBAZam 10 2021-0 Yes [id number] 10mg Take 1 [facility] mg tablet 7-01 tablet by ity o f 00:00: mouth (two) Medical times [facility] daily. gabapentin 2-0 Yes [id number] 100mg Take 1 [facility] 100 mg 7-01 9105 capsule by ity of capsule 00:00: mouth (three) Medical times [facility] daily. gabapentin 2022-0 Yes [id number] 100mg Take 1 [facility] 100 mg 7-01 9105 capsule by ity of capsule 00:00: mouth 3 (three) Medical times [facility] daily. gabapentin 2022-0 Yes [id number] 100mg Take 1 [facility] 100 mg 7-01 9105 capsule by ity of capsule 00:00: mouth (three) Medical times [facility] daily. gabapentin 2022-0 Yes [id number] 100mg Take 1 [facility] 100 mg 7- 9105 capsule by ity of capsule 00:00: mouth (three) Medical times [facility] daily. gabapentin 2022-0 Yes [id number] 100mg Take 1 [facility] 100 mg 7- 9105 capsule by ity of capsule 00:00: mouth (three) Medical times [facility] daily. gabapentin 2022-0 Yes [id number] 100mg Take 1 [facility] 100 mg 7- 9105 capsule by ity of capsule 00:00: mouth (three) Medical times [facility] daily. gabapentin 2022-0 Yes [id number] 100mg Take 1 [facility] 100 mg 7- 9105 capsule by ity of capsule 00:00: mouth (three) Medical times [facility] daily. gabapentin 2022-0 Yes [id number] 100mg Take 1 [facility] 100 mg 7- 9105 capsule by ity of capsule 00:00: mouth (three) Medical times [facility] daily. gabapentin 2022-0 Yes [id number] 100mg Take 1 [facility] 100 mg 7- 9105 capsule by ity of capsule 00:00: mouth (three) Medical times [facility] daily. gabapentin 2022-0 Yes [id number] 100mg Take 1 [facility] 100 mg 7- 9105 capsule by ity of capsule 00:00: mouth (three) Medical times [facility] daily. gabapentin 2022-0 Yes [id number] 100mg Take 1 [facility] 100 mg 7- 9105 capsule by ity of capsule 00:00: mouth (three) Medical times [facility] daily. gabapentin 2022-0 Yes [id number] 100mg Take 1 [facility] 100 mg 7- 9105 capsule by ity of capsule 00:00: mouth (three) Medical times [facility] daily. gabapentin 2022-0 Yes [id number] 100mg Take 1 [facility] 100 mg 7- 9105 capsule by ity of capsule 00:00: mouth (three) Medical times [facility] daily. gabapentin 2022-0 Yes [id number] 100mg Take 1 [facility] 100 mg 7- 9105 capsule by ity of capsule 00:00: mouth (three) Medical times [facility] daily. gabapentin 2022-0 Yes [id number] 100mg Take 1 [facility] 100 mg 10-26 9105 capsule by ity of capsule 00:00: mouth 3 [place] (three) Medical times [facility] daily. gabapentin 2022-0 Yes [id number] 100mg Take 1 [facility] 100 mg 10-26 9105 capsule by ity of capsule 00:00: mouth 3 [place] (three) Medical times [facility] daily. gabapentin 2022-0 Yes [id number] 100mg Take 1 [facility] 100 mg 10-26 9105 capsule by ity of capsule 00:00: mouth 3 [place] (three) Medical times [facility] daily. gabapentin 202-0 Yes [id number] 100mg Take 1 [facility] 100 mg 10-26 9105 capsule by ity of capsule 00:00: mouth 3 [place] (three) Medical times [facility] daily. gabapentin 2021-0 3- No [id number] 100mg Take 1 [facility] 100 mg 10-26 9105 capsule by ity of capsule 00:00: 00:00 mouth 3 [place] 00 :00 (three) Medical times [facility] daily. cloBAZam 10 2- No [id number] 10mg Take 1 [facility] mg tablet 10-26 tablet by ity of 00:00: 00:00 mouth 2 [place] 00 :00 (two) Medical times [facility] daily. methylpheni 2021-0 2- No [id number] 20mg Take 1 [facility] date HCl 20 10-26 08 109 tablet by it y of mg tablet 00:00: 00:00 mouth 2 [place] (two) Medical times [facility] daily. valproic 0 Yes Take by [facility] acid 09-26 mouth. [facility] (Depakene) 15:50: 250 MG/5ML 30 oral liquid polyethylen 2021-0 Yes 17g QD Take 17 g U T e glycol 6-01 by mouth 1 Healt [facility] (Glycolax) 15:50: (one) time 17 GM/SCOOP 30 each day. powder senna 0 Yes 1{tbl} QD Take 1 [facility] (Senokot) 6- tablet by Healt [facility] 8.6 MG 15:50: mouth 1 tablet 30 (one) time each day. gabapentin 2021-0 Yes 400mg Q.[id number] Take 400 [facility] (Neurontin) 6-01 [id number] mg by H ealth 400 MG 15:50: 3D mouth 3 capsule 30 (three) times a day. mupirocin 2022-0 Yes Q.[id number] Apply U T (Bactroban) 6-01 [id number] topically Health 2 % 15:50: 3D 3 [...] time each day. gabapentin 2022-0 Yes 400mg Q.[id number] Take 400 [facility] (Neurontin) 6-01 [id number] mg by H ealth 400 MG 15:50: 3D mouth 3 capsule 30 (three) times a day. mupirocin 2022-0 Yes Q.[id number] Apply U T (Bactroban) 6-01 [id number] topically Health 2 % 15:50: 3D 3 [...] time each day. gabapentin 2022-0 Yes 400mg Q.[id number] Take 400 [facility] (Neurontin) 6-01 [id number] mg by H ealth 400 MG 15:50: 3D mouth 3 capsule 30 (three) times a day. mupirocin 2022-0 Yes Q.33898150 Apply U T (Bactroban) 6-01 [id number] topically Health 2 % 15:50: 3D 3 [...] time each day. gabapentin 2022-0 Yes 400mg Q.[id number] Take 400 [facility] (Neurontin) 6-01 [id number] mg by H ealth 400 MG 15:50: 3D mouth 3 capsule 30 (three) times a day. mupirocin 2022-0 Yes Q.[id number] Apply U T (Bactroban) 6-01 [id number] topically Health 2 % 15:50: 3D 3 (three) ointment 30 times a day. docusate 2022-0 Yes 100mg Q.5D Take 100 [facility] sodium 6-01 mg by Health (Colace) 15:50: mouth 2 100 MG 30 (two) capsule times a day. valproic 2022-0 Yes Take by [facility] acid 6-01 mouth. [facility] (Depakene) 15:50: 250 MG/5ML 30 oral liquid polyethylen 0 Yes 17g QD Take 17 g U T e glycol 6-01 by mouth 1 Healt [facility] (Glycolax) 15:50: (one) time 17 GM/SCOOP 30 each day. powder senna 0 Yes 1{tbl} QD Take 1 [facility] (Senokot) 6-01 tablet by Healt [facility] 8.6 MG 15:50: mouth 1 tablet 30 (one) time each day. gabapentin 0 Yes 400mg Q.[id number] Take 400 [facility] (Neurontin) 6- [id number] mg by H ealth 400 MG 15:50: 3D mouth 3 capsule 30 (three) times a day. mupirocin 0 Yes Q.[id number] Apply U T (Bactroban) 6- [id number] topically Health 2 % 15:50: 3D 3 (three) ointment 30 times a day. docusate 0 Yes 100mg Q.5D Take 100 [facility] sodium 6-01 mg by Health (Colace) 15:50: mouth 2 100 MG 30 (two) capsule times a day. methylpheni 2021- No [id number] 20mg Take 1 [facility] date HCl 20 09-06 tablet by it y of mg tablet 00:00: 00:[place] mouth 3 [place] :[place] (three) Medical times [facility] daily. traMADol 2021- No [id number] 50mg Q6H Take 1 U T (Ultram) 50 5- 05-10 tablet (50 H ealth MG tablet 00:00: 04:59 mg total) 00 :00 by mouth every 6 (six) hours if needed for severe pain for up to 5 days. acetaminoph No 1,000 mg, M emoria en 08-23 Route: PO, l 23:59: ONCE, Duy 00 Dosing Weight 62.3, kg, Start date: 08/23/21 18:59:00 CDT, Stop date: 08/23/21 18:59:00 CDT glycopyrrol No Route: IV, Memoria ate (ANES) 08-23 Drug form: l 20:18: INJ, ONCE, Stop date: 08/23/21 15:18:00 CDT neostigmine No Route: IV, Memoria (ANES) 08-23 Drug form: l 20:18: INJ, ONCE, Stop date: 08/23/21 15:18:00 CDT ondansetron No Route: IV, Memoria (ANES) 08-23 Drug form: l 20:13: INJ, ONCE, Stop date: 08/23/21 15:13:00 CDT lidocaine No Route: IV, Me moria (ANES) 08-23 Drug form: l 19:27: INJ, ONCE, Stop date: 08/23/21 14:27:00 CDT propofol No Route: IV, Mem oria (ANES) 08-23 Drug form: l 19:27: INJ, ONCE, Stop date: 08/23/21 14:27:00 CDT rocuronium No Route: IV, M emoria (ANES) 08-23 Drug form: l 19:27: INJ, ONCE, Stop date: 08/23/21 14:27:00 CDT fentaNYL No Route: IV, Mem oria (ANES) 08-23 Drug form: l 19:27: INJ, ONCE, Stop date: 08/23/21 14:27:00 CDT ceFAZolin No Route: IV, Me moria (ANES) 08-23 Drug form: l 19:22: INJ, ONCE, Stop date: 08/23/21 14:22:00 CDT midazolam No Route: IV, Me moria (ANES) 08-23 Drug form: l 19:12: SOLN, 00 ONCE, Stop date: 08/23/21 14:12:00 CDT ANES No 10 mg, Memoria esmolol 08-23 Route: l 19:08: IVP, Q5Min, Dosing Weight 62.3, kg, PRN Other [...] Limited # of times ANES 0 No 1 mg, Memoria metoprolol 08-23 Route: l 19:08: IVP, [place] 00 Q5Min, Dosing Weight 62.3, kg, PRN Other -See Comment, Start date: 08/23/21 14:08:00 CDT, Duration: 5 doses or times, Stop date: Limited # of times ANES 0 No 0.2 mg, Memoria HYDROmorpho 08-23 Route: l ne 19:08: IVP, [place] 00 Q15Min, Dosing Weight 62.3, kg, PRN Pain Score 7-10, Start date: 08/23/21 14:08:00 CDT, Duration: 4 doses or times, Stop date: Limited # of times ANES 0 No 0.2 mg, Memoria flumazenil 08-23 Route: l 19:08: IVP, PRN, Duy 00 Dosing Weight 62.3, kg, PRN Benzodiaze pine Reversal, Initial dose, Start date: 08/23/21 14:08:00 CDT, Duration: 30 day, Stop date: 09/22/21 14:07:00 CDT ANES 0 No 0.4 mg, Memoria naloxone 08-23 Route: l 19:08: IVP, Duy 00 Q2MIN, Dosing Weight 62.3, kg, PRN Narcotic Reversal, Start date: 08/23/21 14:08:00 CDT, Duration: 8 doses or times, Stop date: Limited # of times ANES 0 No 4 mg, Memoria ondansetron 08-23 Route: l 19:08: IVP, ONCE, [place] 00 Dosing Weight 62.3, kg, PRN Nausea & Vomiting, Start date: 08/23/21 14:08:00 CDT Isolyte S 2022-0 No Route: IV, Me moria PH 7.4 4-28 Total l (ANES) 1000 18:35: Volume: Her [place] mL 00 1,000, Start date: 08/23/21 13:35:00 CDT, Stop date: 08/23/21 14:35:00 CDT HYDROcodone 2021-0 2021- No [id number] 1{tbl} Q6H Take 1 [facility] -acetaminop 4-27 05-03 tablet by He alth hen ([place]) 00:00: 04:59 mouth 10-325 MG 00 :00 every 6 tablet (six) hours if needed for severe pain for up to 5 days. ibuprofen No Notes: Memori a 400 mg oral 409 (Same as: l tablet 16:26: Motrin) "Do Not Crush" Give with food. Lovenox No 40 mg, 0.4 Dannie pat 4-08 mL, Route: l 23:00: SUB-Q, Drug form: INJ, [id number], Dosing Weight 65, kg, Start date: 08/03/21 18:00:00 CDT, Duration: 30 day, Stop date: 09/01/21 18:00:00 CDT, 0 aspirin 81 2021-0 No 81 mg, 1 Mem oria mg tablet, 4-08 tab, l enteric 23:00: Route: PO, Herm Drug form: ECTAB, Daily, Dosing Weight 65, kg, Priority: NOW, Start date: 08/03/21 18:00:00 CDT, Duration: 30 day, Stop date: 09/02/21 12:00:00 CDT, 0 polyethylen 2021-0 No 17 gm, Dannie pat e glycol 4-08 Route: PO, l 3350 14:00: Drug form: PWDR, Daily, Dosing Weight 65, kg, Start date: 08/03/21 9:00:00 CDT, Duration: 30 day, Stop date: 09/01/21 9:00:00 CDT, 0 Protonix 2021-0 No 40 mg, 1 Memor ia 4-08 tab, l 14:00: Route: PO, Drug form: ECTAB, Daily, Dosing Weight 65, kg, Start date: 08/03/21 9:00:00 CDT, Duration: 30 day, Stop date: 09/01/21 9:00:00 CDT, 0 oxyCODONE No Notes: Memori a immediate 08-03 (Same as: l release 04:31: 'Roxicodon e) gabapentin No Notes: Memor ia 300 mg oral 08-03 (Same as: l capsule 03:00: Neurontin) senna No Notes: Memoria 08-03 (Same as: l 02:00: Senokot) acetaminoph No 1,000 mg, M emoria en 08-03 2 tab, l 01:00: Route: PO, Drug form: TAB, Q6Hnow, Dosing Weight 65, kg, Start date: 08/02/21 20:00:00 CDT, Stop date: 09/01/21 20:00:00 CDT, 0 ceFAZolin No Notes: Memori a (SCIP) 08-03 (Same as l 00:00: Ancef) midodrine 5 Yes 5 mg = 1 Me moria mg oral 07 tab, PO, l tablet 22:29: TID, # 90 Scottie n 00 tab, 3 Refill(s) Metoprolol Yes 25 mg = 1 Me moria Tartrate 25 -07 tab, PO, l mg oral 22:29: BID, # 60 Brianna nn tablet 00 tab, 0 Refill(s) docusate No 100 mg, 1 Dannie pat 08-02 cap, l 22:00: Route: PO, Drug form: CAP, BID, Dosing Weight 65, kg, Start date: 08/02/21 17:00:00 CDT, Duration: 30 day, Stop date: 09/01/21 9:00:00 CDT, 0 clobazam No Notes: Memoria 08-02 (Same as: l 22:00: Onfi) reserved for Neurology use only methylpheni No Notes: Dannie pat date 08-02 (Same as l 22:00: :Ritalin) Dextrose No 12.5 gm, Memor ia 50% [...] Dannie pat 08-02 supp, l 20:41: Route: HI, Drug form: SUPP, Daily, Dosing Weight 65, kg, PRN Constipati on, Start date: 08/02/21 15:41:00 CDT, Duration: 30 day, Stop date: 09/01/21 15:40:00 CDT, 0 ondansetron No Notes: Dannie pat 08-02 (Same as: l 20:41: Zofran) MEDICATION WASTE Product Size: 4 mg Product Wasted: ___ mg melatonin No Notes: Memori a 08-02 (Same as: l 20:41: Melatonin) ANES No 1,000 mg, Memoria acetaminoph 08-02 Route: PO, l en 19:25: Drug form: TAB, ONCE, Dosing Weight 65, kg, PRN [...] ANES 2021-0 No 0.5 mg, Memoria HYDROmorpho 08-02 Route: l ne 17:17: IVP, Duy 00 [...] day, Stop date: 09/01/21 12:16:00 CDT ANES 0 No 0.4 mg, Memoria naloxone 08-02 Route: l 17:17: IVP, [place] 00 Q2MIN, Dosing Weight 65, kg, PRN Narcotic Reversal, Start date: 08/02/21 12:17:00 CDT, Duration: 8 doses or times, Stop date: Limited # of times ANES 0 No 4 mg, Memoria ondansetron 08-02 Route: l 17:17: IVP, ONCE, Duy 00 Dosing Weight 65, kg, PRN Nausea & Vomiting, Start date: 08/02/21 12:17:00 CDT midazolam No Route: IV, Me moria (ANES) 08-02 Drug form: l 17:05: SOLN, Duy 00 ONCE, Stop date: 08/02/21 12:05:00 CDT propofol 2021-0 No Route: IV, Mem oria (ANES) 08-02 Drug form: l 17:05: INJ, ONCE, [place] 00 Stop date: 08/02/21 12:05:00 CDT rocuronium 2021 No Route: IV, M emoria (ANES) 08-02 Drug form: l 17:05: INJ, ONCE, Stop date: 08/02/21 12:05:00 CDT fentaNYL No Route: IV, Mem oria (ANES) 08-02 Drug form: l 17:05: INJ, ONCE, Stop date: 08/02/21 12:05:00 CDT ondansetron No Route: IV, Memoria (ANES) 08-02 Drug form: l 17:05: INJ, ONCE, Stop date: 08/02/21 12:05:00 CDT dexamethaso No Route: IV, Memoria ne (ANES) 08-02 Drug form: l 17:05: INJ, ONCE, Stop date: 08/02/21 12:05:00 CDT ePHEDrine No Route: IV, Me moria (ANES) 08-02 Drug form: l 17:05: INJ, ONCE, Stop date: 08/02/21 12:05:00 CDT ceFAZolin No Route: IV, Me moria (ANES) 08-02 Drug form: l 16:55: INJ, ONCE, Stop date: 08/02/21 11:55:00 CDT Lactated No Route: IV, Mem oria Ring[place] 08-02 Total l Injection 16:05: Volume: Brianna nn IV (ANES) 00 1,000, 1000 mL Start date: 08/02/21 11:05:00 CDT, Stop date: 08/02/21 12:05:00 CDT Isolyte S No 1,000 ml, Mem oria PH 7.4 08-02 Rate: TKO l 1,000 mL 15:39: ml/hr, Route: IV, Dosing Weight 65 kg, Total Volume: 1,000, Start date: 08/02/21 10:39:00 CDT, Duration: 30 day, Stop date: 09/01/21 10:38:00 CDT, BSA: 1.73 m2, 0 lidocaine-e Yes Notes: Dannie pat pi 08-02 (Same as: l 1%-1:[id number] 14:57: Xylocaine H ermann 10 mL + 00 w/Epinephr empty ine) container 1 ea midodrine No PO, 0 Memoria 07-31 Refill(s) l 18:01: [place] 00 cloBAZam 10 2021- No [id number] 10mg Take 1 [facility] mg tablet 07-27 tablet by ity of 00:00: 00:00 mouth 2 [place] 00 :00 (two) Medical times [place] daily. gabapentin 2021- No [id number] 100mg Take 1 [facility] 100 mg 07-26 9105 capsule by ity of capsule 00:00: 00:00 mouth 3 [place] 00 :00 (three) Medical times [place] daily. aspirin 81 Yes 81mg Take 81 mg U nivers mg chewable 1-07 by mouth. ity of tablet 13:16: [address] metoprolol Yes 25mg Take 25 mg U nivers tartrate 25 1-07 by mouth. ity of mg tablet 13:16: [address] aspirin 81 Yes 81mg Take 81 mg U nivers mg chewable 1-07 by mouth. ity of tablet 13:16: [address] metoprolol Yes 25mg Take 25 mg U nivers tartrate 25 1-07 by mouth. ity of mg tablet 13:16: [address] aspirin 81 0 Yes 81mg Take 81 mg U nivers mg chewable 1-07 by mouth. ity of tablet 13:16: [address] metoprolol 0 Yes 25mg Take 25 mg U nivers tartrate 25 1-07 by mouth. ity of mg tablet 13:16: [address] aspirin 81 0 Yes 81mg Take 81 mg U nivers mg chewable 1-07 by mouth. ity of tablet 13:16: [address] metoprolol 0 Yes 25mg Take 25 mg U nivers tartrate 25 1-07 by mouth. ity of mg tablet 13:16: [address] aspirin 81 0 Yes 81mg Take 81 mg U nivers mg chewable 1-07 by mouth. ity of tablet 13:16: [address] metoprolol 2021-0 Yes 25mg Take 25 mg U nivers tartrate 25 1-07 by mouth. ity of mg tablet 13:16: [address] aspirin 81 2021-0 Yes 81mg Take 81 mg U nivers mg chewable 1-07 by mouth. ity of tablet 13:16: [address] metoprolol 2021-0 Yes 25mg Take 25 mg U nivers tartrate 25 1-07 by mouth. ity of mg tablet 13:16: [address] aspirin 81 2021-0 Yes 81mg Take 81 mg U nivers mg chewable 1-07 by mouth. ity of tablet 13:16: [address] metoprolol 2021-0 Yes 25mg Take 25 mg U nivers tartrate 25 1-07 by mouth. ity of mg tablet 13:16: [address] aspirin 81 2021-0 Yes 81mg Take 81 mg U nivers mg chewable 1-07 by mouth. ity of tablet 13:16: [address] metoprolol 2021-0 Yes 25mg Take 25 mg U nivers tartrate 25 1-07 by mouth. ity of mg tablet 13:16: [address] aspirin 81 2021-0 Yes 81mg Take 81 mg U nivers mg chewable 1-07 by mouth. ity of tablet 13:16: [address] metoprolol 2021-0 Yes 25mg Take 25 mg U nivers tartrate 25 1-07 by mouth. ity of mg tablet 13:16: [address] aspirin 81 2021-0 Yes 81mg Take 81 mg U nivers mg chewable 1-07 by mouth. ity of tablet 13:16: [address] metoprolol 2021-0 Yes 25mg Take 25 mg U nivers tartrate 25 1-07 by mouth. ity of mg tablet 13:16: [address] aspirin 81 2021-0 Yes 81mg Take 81 mg U nivers mg chewable 1-07 by mouth. ity of tablet 13:16: [address] metoprolol 2021-0 Yes 25mg Take 25 mg U nivers tartrate 25 1-07 by mouth. ity of mg tablet 13:16: [address] aspirin 81 2021-0 Yes 81mg Take 81 mg U nivers mg chewable 1-07 by mouth. ity of tablet 13:16: [address] metoprolol 2021-0 Yes 25mg Take 25 mg U nivers tartrate 25 1-07 by mouth. ity of mg tablet 13:16: [address] aspirin 81 2021-0 Yes 81mg Take 81 mg U nivers mg chewable 1-07 by mouth. ity of tablet 13:16: [address] metoprolol 2021-0 Yes 25mg Take 25 mg U nivers tartrate 25 1-07 by mouth. ity of mg tablet 13:16: [address] aspirin 81 2021-0 Yes 81mg Take 81 mg U nivers mg chewable 1-07 by mouth. ity of tablet 13:16: [address] metoprolol 2021-0 Yes 25mg Take 25 mg U nivers tartrate 25 1-07 by mouth. ity of mg tablet 13:16: [address] aspirin 81 2021-0 Yes 81mg Take 81 mg U nivers mg chewable 1-07 by mouth. ity of tablet 13:16: [address] metoprolol 2021-0 Yes 25mg Take 25 mg U nivers tartrate 25 1-07 by mouth. ity of mg tablet 13:16: [address] aspirin 81 2021-0 Yes 81mg Take 81 mg U nivers mg chewable 1-07 by mouth. ity of tablet 13:16: [address] metoprolol 2021-0 Yes 25mg Take 25 mg U nivers tartrate 25 1-07 by mouth. ity of mg tablet 13:16: [address] aspirin 81 2021-0 Yes 81mg Take 81 mg U nivers mg chewable 1-07 by mouth. ity of tablet 13:16: [address] metoprolol 2021-0 Yes 25mg Take 25 mg U nivers tartrate 25 1-07 by mouth. ity of mg tablet 13:16: [address] aspirin 81 2021-0 Yes 81mg Take 81 mg U nivers mg chewable 1-07 by mouth. ity of tablet 13:16: [address] metoprolol 2021-0 Yes 25mg Take 25 mg U nivers tartrate 25 1-07 by mouth. ity of mg tablet 13:16: [address] aspirin 81 2021-0 Yes 81mg Take 81 mg U nivers mg chewable 1-07 by mouth. ity of tablet 13:16: 51 [address] metoprolol 2021-0 Yes 25mg Take 25 mg U nivers tartrate 25 1-07 by mouth. ity of mg tablet 13:16: [address] aspirin 81 2021-0 Yes 81mg Take 81 mg U nivers mg chewable 1-07 by mouth. ity of tablet 13:16: [address] metoprolol 2021-0 Yes 25mg Take 25 mg U nivers tartrate 25 1-07 by mouth. ity of mg tablet 13:16: [address] aspirin 81 2021-0 Yes 81mg Take 81 mg U nivers mg chewable 1-07 by mouth. ity of tablet 13:16: [address] metoprolol 2021-0 Yes 25mg Take 25 mg U nivers tartrate 25 1-07 by mouth. ity of mg tablet 13:16: [address] aspirin 81 2021-0 Yes 81mg Take 81 mg U nivers mg chewable 1-07 by mouth. ity of tablet 13:16: [address] metoprolol 2021-0 Yes 25mg Take 25 mg U nivers tartrate 25 1-07 by mouth. ity of mg tablet 13:16: [address] aspirin 81 2021-0 Yes 81mg Take 81 mg U nivers mg chewable 1-07 by mouth. ity of tablet 13:16: [address] metoprolol 2021-0 Yes 25mg Take 25 mg U nivers tartrate 25 1-07 by mouth. ity of mg tablet 13:16: [address] aspirin 81 2021-0 Yes 81mg Take 81 mg U nivers mg chewable 1-07 by mouth. ity of tablet 13:16: [address] metoprolol 2021-0 Yes 25mg Take 25 mg U nivers tartrate 25 1-07 by mouth. ity of mg tablet 13:16: [address] aspirin 81 2021-0 Yes 81mg Take 81 mg U nivers mg chewable 1-07 by mouth. ity of tablet 13:16: [address] metoprolol 2021-0 Yes 25mg Take 25 mg U nivers tartrate 25 1-07 by mouth. ity of mg tablet 13:16: [address] aspirin 81 2021-0 Yes 81mg Take 81 mg U nivers mg chewable 1-07 by mouth. ity of tablet 13:16: [address] metoprolol 2021-0 Yes 25mg Take 25 mg U nivers tartrate 25 1-07 by mouth. ity of mg tablet 13:16: [address] aspirin 81 2021-0 Yes 81mg Take 81 mg U nivers mg chewable 1-07 by mouth. ity of tablet 13:16: [address] metoprolol 2021-0 Yes 25mg Take 25 mg U nivers tartrate 25 1-07 by mouth. ity of mg tablet 13:16: [address] aspirin 81 2021-0 Yes 81mg Take 81 mg U nivers mg chewable 1-07 by mouth. ity of tablet 13:16: [address] metoprolol 2021-0 Yes 25mg Take 25 mg U nivers tartrate 25 1-07 by mouth. ity of mg tablet 13:16: [address] aspirin 81 2021-0 Yes 81mg Take 81 mg U nivers mg chewable 1-07 by mouth. ity of tablet 13:16: [address] metoprolol 2021-0 Yes 25mg Take 25 mg U nivers tartrate 25 1-07 by mouth. ity of mg tablet 13:16: [address] aspirin 81 2021-0 Yes 81mg Take 81 mg U nivers mg chewable 1-07 by mouth. ity of tablet 13:16: [address] metoprolol 2021-0 Yes 25mg Take 25 mg U nivers tartrate 25 1-07 by mouth. ity of mg tablet 13:16: [address] aspirin 81 2021-0 Yes 81mg Take 81 mg U nivers mg chewable 1-07 by mouth. ity of tablet 13:16: [address] metoprolol 2-0 Yes 25mg Take 25 mg U nivers tartrate 25 1-07 by mouth. ity of mg tablet 13:16: [address] aspirin 81 2021-0 Yes 81mg Take 81 mg U nivers mg chewable 1-07 by mouth. ity of tablet 13:16: [address] metoprolol 0 Yes 25mg Take 25 mg U nivers tartrate 25 1-07 by mouth. ity of mg tablet 13:16: [address] aspirin 81 2021-0 Yes 81mg Take 81 mg U nivers mg chewable 1-07 by mouth. ity of tablet 13:16: [address] metoprolol 0 Yes 25mg Take 25 mg U nivers tartrate 25 1-07 by mouth. ity of mg tablet 13:16: [address] aspirin 81 2021-0 Yes 81mg Take 81 mg U nivers mg chewable 1-07 by mouth. ity of tablet 13:16: [address] metoprolol 0 Yes 25mg Take 25 mg U nivers tartrate 25 1-07 by mouth. ity of mg tablet 13:16: [address] aspirin 81 0 Yes 81mg Take 81 mg U nivers mg chewable 1-07 by mouth. ity of tablet 13:16: [address] metoprolol 0 Yes 25mg Take 25 mg U nivers tartrate 25 1-07 by mouth. ity of mg tablet 13:16: [address] aspirin 81 0 Yes 81mg Take 81 mg U nivers mg chewable 1-07 by mouth. ity of tablet 13:16: [address] metoprolol 0 Yes 25mg Take 25 mg U nivers tartrate 25 1-07 by mouth. ity of mg tablet 13:16: [address] aspirin 81 0 Yes 81mg Take 81 mg U nivers mg chewable 1-07 by mouth. ity of tablet 13:16: [address] metoprolol 0 Yes 25mg Take 25 mg U nivers tartrate 25 1-07 by mouth. ity of mg tablet 13:16: [address] aspirin 81 2021-0 Yes 81mg Take 81 mg U nivers mg chewable 1-07 by mouth. ity of tablet 13:16: [address] metoprolol 0 Yes 25mg Take 25 mg U nivers tartrate 25 1-07 by mouth. ity of mg tablet 13:16: [address] cloBAZam 2020-04 Yes 10mg Q.5D Take 10 mg UT (Onfi) 2.5 2-29 by mouth Healt h mg/mL 10:06: twice a suspension 56 day. valproic 2020-04 Yes Take by UT acid 2-29 mouth. Health ([facility]) 10:06: 250 MG/5ML 56 oral liquid polyethylen 2020-04 Yes 17g QD Take 17 g U T e glycol 2-29 by mouth 1 Healt h (Glycolax) 10:06: (one) time 17 GM/SCOOP 56 each day. powder senna 2020-04 Yes 1{tbl} QD Take 1 UT (Senokot) 2-29 tablet by Healt h 8.6 MG 10:06: mouth 1 tablet 56 (one) time each day. gabapentin 2020-04 Yes 400mg Q.[id number] Take 400 UT (Neurontin) 2-29 [id number] mg by H ealth 400 MG 10:06: 3D mouth 3 capsule 56 (three) times a day. mupirocin 2020-04 Yes Q.14844898 Apply U T (Bactroban) 2-29 [id number] topically Health 2 % 10:06: 3D 3 [...] Take by UT acid 2-29 mouth. Health ([facility]) 10:06: 250 MG/5ML 56 oral liquid polyethylen 2020-04 Yes 17g QD Take 17 g U T e glycol 2-29 by mouth 1 Healt h (Glycolax) 10:06: (one) time 17 GM/SCOOP 56 each day. powder senna 2020-04 Yes 1{tbl} QD Take 1 UT (Senokot) 2-29 tablet by Healt h 8.6 MG 10:06: mouth 1 tablet 56 (one) time each day. gabapentin 2021-1 Yes 400mg Q.[id number] Take 400 UT (Neurontin) 2-29 [id number] mg by H ealth 400 MG 10:06: 3D mouth 3 capsule 56 (three) times a day. mupirocin 2020-04 Yes Q.[id number] Apply U T (Bactroban) 2-29 [id number] topically Health 2 % 10:06: 3D 3 [...] time each day. gabapentin 2020-04 Yes 400mg Q.[id number] Take 400 UT (Neurontin) 2-29 [id number] mg by H ealth 400 MG 10:06: 3D mouth 3 capsule 56 (three) times a day. mupirocin 2020-04 Yes Q.[id number] Apply U T (Bactroban) 2-29 [id number] topically Health 2 % 10:06: 3D 3 [...] time each day. gabapentin 2020-04 Yes 400mg Q.14534795 Take 400 UT (Neurontin) 2-29 [id number] mg by H ealth 400 MG 10:06: 3D mouth 3 capsule 56 (three) times a day. mupirocin 2020-04 Yes Q.60874001 Apply U T (Bactroban) 2-29 [id number] topically Health 2 % 10:06: 3D 3 [...] time each day. gabapentin 2020-04 Yes 400mg Q.[id number] Take 400 UT (Neurontin) 2-29 [id number] mg by H ealth 400 MG 10:06: 3D mouth 3 capsule 56 (three) times a day. mupirocin 2020-04 Yes Q.51581930 Apply U T (Bactroban) 2-29 [id number] topically Health 2 % 10:06: 3D 3 [...] time each day. gabapentin 2020-04 Yes 400mg Q.[id number] Take 400 UT (Neurontin) 2-29 [id number] mg by H ealth 400 MG 10:06: 3D mouth 3 capsule 56 (three) times a day. mupirocin 2020-04 Yes Q.[id number] Apply U T (Bactroban) 2-29 [id number] topically Health 2 % 10:06: 3D 3 [...] time each day. gabapentin 2020-04 Yes 400mg Q.[id number] Take 400 UT (Neurontin) 2-29 [id number] mg by H ealth 400 MG 10:06: 3D mouth 3 capsule 56 (three) times a day. mupirocin 2020-04 Yes Q.41949885 Apply U T (Bactroban) 2-29 [id number] topically Health 2 % 10:06: 3D 3 [...] time each day. gabapentin 2020-04 Yes 400mg Q.[id number] Take 400 UT (Neurontin) 2-29 [id number] mg by H ealth 400 MG 10:06: 3D mouth 3 capsule 56 (three) times a day. mupirocin 2020-04 Yes Q.[id number] Apply U T (Bactroban) 2-29 [id number] topically Health 2 % 10:06: 3D 3 [...] time each day. gabapentin 2020-04 Yes 400mg Q.[id number] Take 400 UT (Neurontin) 2-29 [id number] mg by H ealth 400 MG 10:06: 3D mouth 3 capsule 56 (three) times a day. mupirocin 2020-04 Yes Q.[id number] Apply U T (Bactroban) 2-29 [id number] topically Health 2 % 10:06: 3D 3 [...] time each day. gabapentin 2020-04 Yes 400mg Q.[id number] Take 400 UT (Neurontin) 2-29 [id number] mg by H ealth 400 MG 10:06: 3D mouth 3 capsule 56 (three) times a day. mupirocin 2020-04 Yes Q.[id number] Apply U T (Bactroban) 2-29 [id number] topically [facility] 2 % 10:06: 3D 3 (three) ointment [...] Yes Take by UT acid 2-29 mouth. [facility] ([facility]) 10:06: 250 MG/5ML 56 oral liquid polyethylen 2020-04 Yes 17g QD Take 17 g U T e glycol 2-29 by mouth 1 Healt h (Glycolax) 10:06: (one) time 17 GM/SCOOP 56 each day. powder senna 2020-04 Yes 1{tbl} QD Take 1 UT (Senokot) 2-29 tablet by Healt h 8.6 MG 10:06: mouth 1 tablet 56 (one) time each day. gabapentin 2020-04 Yes 400mg Q.[id number] Take 400 UT (Neurontin) 2-29 [id number] mg by H ealth 400 MG 10:06: 3D mouth 3 capsule 56 (three) times a day. mupirocin 2020-04 Yes Q.[id number] Apply U T (Bactroban) 2-29 [id number] topically Health 2 % 10:06: 3D 3 [...] Refill(s) gabapentin 2020-04 Yes PO, Memoria 300 mg oral 1-18 Q8H-06, 0 l capsule 17:51: Refill(s) Brianna nn 00 acetaminoph 2020-04 Yes 1,000 mg = Memoria en 500 mg 1-18 2 tab, PO, l oral 17:50: Q6H, 0 [place] tablet. 00 Refill(s) Aluminum 2020-04 Yes 0 Memoria Hydroxide 1-18 Refill(s) l 40 MG/ML / 17:50: Duy Magnesium 00 Hydroxide 40 MG/ML / Simethicone 4 MG/ML Oral Suspension [Maalox Plus] Aspirin 2020-04 Yes 325 mg = 1 Dannie pat 1-18 tab, PO, l 17:50: Daily, 0 [place] 00 Refill(s) methylpheni 2020-04 Yes 20 mg = 1 M emoria date 20 mg 1-18 tab, PO, l oral tablet 17:49: TID, # 90 H ermann 00 tab, 0 Refill(s), Pharmacy: [facility], 162.56, cm, 02/28/21 20:13:00 CDT, Height, 72.727, kg, 02/28/21 20:13:00 CDT, Weight clobazam 10 2020-04 Yes 10 mg = 1 M emoria mg oral 1-18 tab, PO, l tablet 17:48: BID, # 60 Scottie n 00 tab, 1 Refill(s), Pharmacy: [facility], 162.56, cm, 02/28/21 20:13:00 CDT, Height, 72.727, kg, 02/28/21 20:13:00 CDT, Weight ondansetron 2020-04 No Route: IV, Memoria (ANES) 05-13 Drug form: l 15:09: INJ, ONCE, Stop date: 03/13/21 9:09:00 [employer] dexamethaso 2020-04 No Route: IV, Memoria ne (ANES) 05-13 Drug form: l 15:09: INJ, ONCE, Stop date: 03/13/21 9:09:00 [employer] glycopyrrol 2020-04 No Route: IV, Memoria ate (ANES) 05-13 Drug form: l 15:09: INJ, ONCE, Stop date: 03/13/21 9:09:00 [employer] neostigmine 2020-04 No Route: IV, Memoria (ANES) 05-13 Drug form: l 15:09: INJ, ONCE, Stop date: 03/13/21 9:09:00 [employer] Mupirocin 2020-04 No 1 appl, Memor ia -16 Route: l 15:00: TOP, TID, Drug form: OINT, Start date: 03/13/21 9:00:00 [employer], Duration: 30 day, Stop date: 04/11/21 17:00:00 [employer], 0 Fentanyl 2020-04 No Notes: Memoria 1-16 (Same as: l 14:56: Sublimaze) Preservati ve free. Hydromorpho 2020-04 No Notes: Dannie pat ne -16 Same as l 14:56: Dilaudid Flumazenil 2020-04 No Notes: Memor ia -16 (Same as: l 14:56: Romazicon) Naloxone 2020-04 No Notes: Memoria 1-16 Same as l 14:56: Narcan Ondansetron 2020-04 No Notes: Dannie pat -16 (Same as: l 14:56: Zofran) MEDICATION WASTE Product Size: 4 mg Product Wasted: ___ mg Promethazin 2020-04 No Notes: Do M emoria e -16 not give l 14:56: IV push. (Same as: Phenergan) phenylephri 2020-04 No Route: IV, Memoria ne (ANES) -16 Drug form: l 14:44: INJ, ONCE, Stop date: 03/13/21 8:44:00 [employer] Cleocin 2020-04 No Route: IV, Dannie pat Phosphate -16 Drug form: l (ANES) 14:39: INJ, ONCE, Brianna nn Stop date: 03/13/21 8:39:00 [employer] propofol 2020-04 No Route: IV, Mem oria (ANES) 1-16 Drug form: l 14:29: INJ, ONCE, Stop date: 03/13/21 8:29:00 [employer] rocuronium 2020-04 No Route: IV, M emoria (ANES) -16 Drug form: l 14:29: INJ, ONCE, [place] 00 Stop date: 03/13/21 8:29:00 [employer] succinylcho 2020-04 No Route: IV, Memoria line (ANES) 05-13 Drug form: l 14:29: INJ, ONCE, Duy 00 Stop date: 03/13/21 8:29:00 [employer] Isolyte S 2020-04 No Route: IV, Me moria PH 7.4 05-13 Total l (ANES) 1000 13:38: Volume: Her [place] mL 00 1,000, Start date: 03/13/21 7:38:00 [employer], Stop date: 03/13/21 8:38:00 [employer] Mupirocin 2020-04 No 1 appl, Memor ia 0.02 MG/MG 05-09 Route: l Topical 20:00: TOP, [place] Ointment 00 Daily, Drug form: OINT, Start date: 03/09/21 14:00:00 [employer], Duration: 30 day, Stop date: 04/08/21 9:00:00 [employer], 0 gabapentin 2020-04 No Notes: Memor ia 50 MG/ML 05-08 (Same as: l Oral 20:00: Neurontin) Duy Solution 00 tramadol 2020-04 No Notes: Not Mem oria hydrochlori 05-08 to exceed l de 50 MG 17:43: 400mg/day. Her [place] Oral Tablet 00 (Same As: Ultram) Maalox 2020-04 No Notes: Memoria Advanced 05-07 (aluminum l Regular 16:40: hydroxide- Herm shama Strength 00 magnesium SUSP hyd-simeth icone 200-200-20 mg/5ml 30 ml ud RENETTA) Methylpheni 2020-04 No Notes: Dannie pat date 05-06 (Same as l 21:30: :Ritalin) Duy 00 Acetaminoph 2020-04 No Notes: Max Memoria en 05-04 acetaminop l 18:00: hen 4000 [place] 00 mg/day (4 gm/day). (Same as: Tylenol Extra Strength) Oxycodone 2020-04 No Notes: Memori a 05-04 (Same as: l 15:54: Roxicodone Duy 00 ) Oxycodone 2020-04 No Notes: Memori a [...] (ANES) 05-03 Drug form: l 15:46: SOLN, ONCE, Stop date: 03/03/21 10:46:00 CDT lidocaine [...] Memori a 05-03 Route: l 15:21: IVP, [place] 00 Q5Min, Dosing Weight 72.727, kg, PRN Elevated BP, Start date: 03/03/21 10:21:00 CDT, Duration: 5 doses or times, Stop date: Limited # of times Ketorolac 2020-04 No 15 mg, Memori a 05-03 Route: l 15:21: IVP, ONCE, Duy Dosing Weight 72.727, kg, Start date: 03/03/21 10:21:00 CDT, Stop date: 03/03/21 10:21:00 CDT Acetaminoph 2020-04 No 1,000 mg, M emoria en 05-03 Route: l 15:21: IVPB, Drug [place] 00 form: INJ, ONCE, Dosing Weight 72.727, kg, PRN Pain Score 1-3, Start date: 03/03/21 10:21:00 CDT Oxycodone 2020-04 No 5 mg, Memoria Hydrochlori 05-03 Route: PO, l de 5 MG 15:21: Drug form: Herm shama Oral Tablet 00 TAB, Q4H, Dosing Weight 72.727, kg, PRN Pain Score 4-6, Start date: 03/03/21 10:21:00 CDT, Duration: 30 day, Stop date: 04/02/21 10:20:00 [employer] Hydromorpho 2020-04 No 0.5 mg, Mem oria ne 05-03 Route: l 15:21: IVP, [place] 00 Q5Min, Dosing Weight 72.727, kg, PRN Pain Score 7-10, Start date: 03/03/21 10:21:00 CDT, Duration: 4 doses or times, Stop date: Limited # of times Flumazenil 2020-04 No 0.2 mg, Dannie pat 05-03 Route: l 15:21: IVP, PRN, Duy 00 Dosing Weight 72.727, kg, PRN Benzodiaze pine Reversal, Initial dose, Start date: 03/03/21 10:21:00 CDT, Duration: 30 day, Stop date: 04/02/21 9:20:00 [employer] Naloxone 2020-04 No 0.4 mg, Memori a [...] moria e 05-03 Route: l 15:21: IVPB, [place] 00 ONCE, Dosing Weight 72.727, kg, PRN [...] Duration: 30 day, Stop date: 03/31/21 15:17:00 [employer], BSA: 1.83 m2, 0 clobazam 10 2020-04 No 10 mg = 1 M emoria mg oral 1-04 tab, PO, l tablet 15:27: BID, # 60 Scottie n 00 tab lisinopril 2020-04 No 20 mg = 1 Me moria 20 mg oral 1-04 tab, PO, l tablet 15:26: Daily, # [place] 00 90 tab, 0 Refill(s) metoprolol 2020-04 [...] 15:22: Constipati Duy sennosides, 00 on, 0 ASSISTED 8.6 MG Refill(s) Oral Tablet Aspirin 2020-04 No 325 mg, 1 Memor ia -04 tab, l 14:00: Route: GT, Drug form: TAB, Daily, Dosing Weight 70.455, kg, Start date: 03/01/21 9:00:00 CDT, Duration: 30 day, Stop date: 03/30/21 9:00:00 [employer], 0 clobazam 2020-04 No Notes: Memoria 05-01 (Same as: l 14:00: Onfi) reserved for Neurology use only Methylpheni 2020-04 No Notes: Dannie pat date 05-01 (Same as l 14:00: :Ritalin) Valproate 2020-04 No 250 mg, 5 Mem oria 1-04 mL, Route: l 05:00: GT, Drug form: SYRP, Q6H, Dosing Weight 70.455, kg, Start date: 03/01/21 0:00:00 CDT, Duration: 30 day, Stop date: 03/31/21 4:00:00 [employer], 0 gabapentin 2020-04 No Notes: Memor ia 50 MG/ML 05-01 (Same as: l Oral 03:00: Neurontin) [place] Solution 00 Docusate 2020-04 No 1 tab, Memoria Sodium 50 04 Route: GT, l MG / 02:00: Drug Form: Duy sennosides, 00 TAB, ASSISTED 8.6 MG Dosing Oral Tablet Weight 70.455, kg, Q12H, Start date: 02/28/21 21:00:00 CDT, Duration: 30 day, Stop date: 03/30/21 9:00:00 [employer], 0 Lovenox 2020-04 No Notes: Memoria 05-01 (Same as: l 01:00: Lovenox) [place] Acetaminoph 2020-04 No Notes: Max Memoria en 04-30 acetaminop l 23:38: hen 4000 Duy 00 mg/day (4 gm/day). (Same as: Tylenol Extra Strength) Dextrose 2020-04 No 12.5 gm, Memor ia 50% Syringe 04-30 25 mL, l (D50W) 23:36: Route: Duy 00 IVP, Drug Form: INJ, Dosing Weight 70.455, kg, PRN, PRN Blood Glucose Results, Start date: 02/28/21 18:36:00 CDT, Duration: 30 day, Stop date: 03/30/21 17:35:00 [employer], 0 Glucagon 2020-04 No 1 mg, Memoria 04-30 Route: IM, l 23:36: Drug form: Duy 00 PDR/INJ, PRN, Dosing Weight 70.455, kg, PRN Blood Glucose Results, Start date: 02/28/21 18:36:00 CDT, Duration: 30 day, Stop date: 03/30/21 17:35:00 [employer], 0 Valproic Yes 250 mg = 5 Mem oria Acid 50 9-28 mL, GT, l MG/ML Oral 20:33: Q6H, 0 Brianna nn Solution 00 Refill(s) acetaminoph Yes 1,000 mg = Memoria en 500 mg 01-23 2 tab, GT, l oral 20:32: Q6Hnow, [place] tablet. 00 PRN pain, 0 Refill(s) Docusate Yes 1 tab, GT, Mem oria Sodium 50 01-23 Q12H, 0 l MG / 20:32: Refill(s) Duy sennosides, 00 ASSISTED 8.6 MG Oral Tablet gabapentin Yes 400 mg = 8 M emoria 50 MG/ML 01-23 mL, GT, l Oral 20:32: Q8H-06, 0 [place] Solution 00 Refill(s) Aspirin Yes 325 mg [...] 1 MG/ML 20:08: as:'Roxico H ermann Oral 00 done) To Solution be drawn up in 3 mL syr Lidocaine No 1 %, Memoria 01-22 Route: l 16:25: SUB-Q, [place] 00 ONCE, Dosing Weight 68.182, kg, Start date: 01/22/21 11:25:00 CDT, Stop date: 01/22/21 11:25:00 CDT Fentanyl No Notes: Memoria 01-22 (Same as: l 16:25: Sublimaze) Preservati ve [...] 9-22 mL, Route: l Oral 19:00: PO, [place] Solution 00 Q8H-06, Dosing Weight 68.182, kg, [...] 17:52: Dilaudid Flumazenil No Notes: Memor ia 01-15 (Same as: l 17:52: Romazicon) Naloxone No [...] 0 Vancomycin No 2000 mg: Me moria 9- infuse l 03:00: over 2.5 Duy 00 hours heparin No Notes: Memoria additive - Total l 25,000 unit 02:53: Concentrat [place] [14 00 ion = 50 unit/kg/hr] unit/ ml + Premix Total Diluent volume = Sodium 500 ml Chloride Send Med 0.45% 500 Request 2 mL hours prior to next bag POLYETHYLEN No Notes: Dannie pat E GLYCOL 01-13 Dissolve l 3350 22:00: in 8 oz of water or juice. (Same as: Miralax) Tramadol No Notes: Not Mem oria 01-13 to exceed l 17:43: 400mg/day. [place] 00 (Same As: Ultram) Oxycodone No Notes: Memori a 18 (Same as: l 17:43: Roxicodone ) Kayexalate No Notes: Memor ia 18 (sodium l 16:23: polystyren e sulfonate 15 gm/60 ml RENETTA) (Same as: Kayexalate , SPS) Vancomycin No 2000 mg: Me moria 01-13 infuse l 14:00: over 2.5 hours For adult patients only: Round to nearest 250 mg per Medical Staff approval MEDICATION WASTE Product Size: 1000 mg Product Wasted: ___ mg Vancomycin No Notes: Memor ia 01-13 Vancomycin l 11:42: Pharmacy [place] 58 Dosing Protocol PHARMAC Y USE ONLY Note: This is not a medication order. This is a consultati on order. Unasyn No Notes: Memoria 01-13 Dosing l 05:00: based on Ampicillin component (Same as: Unasyn) POLYETHYLEN No Notes: Dannie pat E GLYCOL 01-11 Dissolve l 3350 14:00: in 8 oz of water or juice. (Same as: Miralax) Kayexalate No Notes: Memor ia 16 (sodium l 08:15: polystyren e sulfonate 15 gm/60 ml RENETTA) Shake well before use. (Same as: Kayexalate , SPS) Lovenox No Notes: Memoria 15 (Same as: l 09:00: Lovenox) Methylpheni No Notes: Dannie pat date 14 (Same l 13:00: as:Ritalin ) Aspirin No [...] / 14:00: Senokot-S) sennosides, 00 Equiv. to ASSISTED 8.6 MG [place] Oral Tablet e. clobazam [...] l 13:00: Neurontin) Robaxin No Notes: Memoria 01-06 (Same l 05:00: as:Robaxin ) Tramadol No 50 mg, Memoria 01-06 Route: PO, l 05:00: Drug form: TAB, Q6H, Dosing Weight 68.182, kg, Start date: 01/06/21 0:00:00 CDT, Duration: 30 day, Stop date: 02/04/21 18:00:00 CDT Naproxen No 500 mg, Memori a 01-06 Route: GT, l 02:00: Q12H, Dosing Weight 68.182, kg, Start date: 01/05/21 21:00:00 CDT, Duration: 30 day, Stop date: 02/04/21 9:00:00 CDT Tramadol No Notes: Not Mem oria 9-11 to exceed l 01:47: 400mg/day. [place] 00 (Same As: Ultram) gabapentin No Notes: Memor ia 9-11 (Same as: l 00:00: Neurontin) Isolyte S No Notes: Memori a PH-7.4 9-10 (Same as: l (Bolus) IV 23:16: Isolyte S He rm 00 PH7.4, Normosol-R PH 7.4, Plasma-Lyt e A ) Robaxin No Notes: Memoria 9-10 (Same l 21:00: as:Robaxin ) Aspirin No 325 mg, Memoria 9-10 Route: HI, l 18:00: Drug form: [place] 00 TAB, Q24H, Dosing Weight 68.182, kg, Start date: 01/05/21 13:00:00 CDT, Duration: 30 day, Stop date: 02/03/21 13:00:00 CDT, 0 Aspirin No Notes: Memoria 9-10 Take with l 15:00: food. Naproxen No Notes: Memoria 9-10 (Same as: l 14:58: Naprosyn) Take with food. Robaxin No Notes: Memoria 9-10 (Same l 13:00: as:Robaxin ) gabapentin No Notes: Memor ia 9-10 (Same as: l 12:00: Neurontin) Aspirin No 325 mg, Memoria 9-10 Route: PO, l 12:00: Q24H, Dosing Weight 68.182, kg, Start date: 01/05/21 7:00:00 CDT, Duration: 30 day, Stop date: 02/03/21 7:00:00 CDT Aspirin No 325 mg, Memoria 9-10 Route: PO, l 11:36: Drug form: [place] 00 TAB, Q24H, Dosing Weight 68.182, kg, Priority: NOW, Start date: 01/05/21 6:36:00 CDT, Duration: 30 day, Stop date: 02/03/21 6:36:00 CDT ondansetron No Route: IV, Memoria (ANES) 01-04 Drug form: l 23:46: INJ, ONCE, Duy 00 Stop date: 01/04/21 18:46:00 CDT rocuronium No Route: IV, M emoria (ANES) 01-04 Drug form: l 22:24: INJ, ONCE, [place] 00 Stop date: 01/04/21 17:24:00 CDT propofol No [...] 01-04 Drug form: l 18:33: INJ, ONCE, [place] 00 Stop date: 01/04/21 13:33:00 CDT fentaNYL No Route: IV, Mem oria (ANES) 01-04 Drug form: l 18:18: INJ, ONCE, Duy 00 Stop date: 01/04/21 13:18:00 CDT midazolam No Route: IV, Me moria (ANES) 01-04 Drug form: l 18:13: SOLN, Duy 00 ONCE, Stop date: 01/04/21 13:13:00 CDT phenylephri No Route: IV, Memoria ne (ANES) 01-04 Drug form: l 18:13: INJ, ONCE, Stop date: 01/04/21 13:13:00 CDT ceFAZolin No Route: IV, Me moria (ANES) 01-04 Drug form: l 17:47: INJ, ONCE, Stop date: 01/04/21 12:47:00 CDT heparin No Route: IV, Dannie pat (ANES) 01-04 Dosing l [id number] unit 17:30: Weight Brianna nn + Sodium 00 68.2 kg, Chloride Total 0.45% IV Volume: (ANES) 500 500, Start mL date: 01/04/21 12:30:00 CDT, Stop date: 01/04/21 13:30:00 CDT ocular No Notes: Memoria lubricant 01-04 (Same as: l 17:00: Lacri-Lube , Puralube, Duratears Naturale, Artificial Tears, and Tears Again ) Isolyte S No Route: IV, Me moria PH 7.4 01-04 Total l (ANES) 1000 16:39: Volume: Her [place] mL 00 1,000, Start date: 01/04/21 11:39:00 CDT, Stop date: 01/04/21 12:39:00 CDT Ancef + No Notes: Memoria sterile 01-04 (Same As: l water 10 mL 16:00: Ancef, Kefzol) MEDICATION WASTE Product Size: 1000 mg Product Wasted: ___ mg Docusate No Notes: Memoria Sodium 50 01-04 (Same as l MG / 14:00: Senokot-S) sennosides, 00 Equiv. to ASSISTED 8.6 MG [place] Oral Tablet e. POLYETHYLEN No Notes: Dannie pat E GLYCOL 01-04 Dissolve l 3350 14:00: in 8 oz of water or juice. (Same as: Miralax) Famotidine No Notes: Memor ia 01-04 (Same as: l 14:00: Pepcid) [place] 00 Can be dilute in 5-10cc NS [...] being intubated (unless the nurse is a CREAM HAULER). Same as: Diprivan Insulin No Notes: Memoria regular 01-04 (Same as: l 11:45: Humulin R) [place] 00 Roll in palms of hands gently; Do not shake vigorously . WASTE: F/P - Black; E - Municipal Trash Bin Stable for 31 days at room temperatur e Expires in days from ____Date Dextrose No 12.5 gm, Memor ia 50% Syringe 01-04 25 mL, l (D50W) 11:45: Route: [place] 00 IVP, Drug Form: INJ, Dosing Weight 68.182, kg, PRN, PRN Abnormal Lab Result, Start date: 01/04/21 6:45:00 CDT, Duration: 30 day, Stop date: 02/03/21 6:44:00 CDT, For [facility] 40 mg/dL - 60 mg/dL, 0 dexmedetomi No Route: IV, Memoria dine (ANES) 01-04 Drug form: l 10:26: INJ, ONCE, Duy Stop date: 01/04/21 5:26:00 CDT Cefazolin 2021-0 No Notes: Memori a 01-04 (Same As: l 10:10: Ancef, [place] 00 Kefzol) MEDICATION WASTE Product Size: 1000 mg Product Wasted: ___ mg ondansetron No Route: IV, Memoria (ANES) 01-04 Drug form: l 09:49: INJ, ONCE, Stop date: 01/04/21 4:49:00 CDT Ofirmev No Notes: Memoria 01-04 Infuse l 06:50: over 15 Duy 00 minutes Do not exceed 4gm/day of acetaminop hen MEDICATION WASTE Product Size: 1000 mg Product Wasted: ___ mg propofol No Route: IV, Mem oria (ANES) 01-04 Drug form: l 03:37: INJ, ONCE, Stop date: 01/03/21 22:37:00 CDT heparin No Route: IV, Dannie pat (ANES) 01-04 Dosing l [id number] unit 02:14: Weight Brianna nn + Sodium [...] INJ, ONCE, Stop date: 01/03/21 18:58:00 CDT heparin No Notes: Memoria additive 01-03 Total l 25,000 unit 23:26: Concentrat [place] [14 00 ion = 50 unit/kg/hr] unit/ [...] 18:06:00 CDT Hydralazine No Notes: Dannie pat - (Same as: l 21:59: Apresoline Duy ) Push over 5 minutes Labetalol No 10 mg, 2 Dannie pat -08 mL, Route: l 21:59: IVP, Drug form: INJ, Q5Min, Dosing Weight 68.182, kg, PRN Elevated BP, Start date: 01/03/21 16:59:00 CDT, Duration: 5 doses or times, Stop date: 01/04/21 0:00:00 CDT, 0 Oxycodone No Notes: Memori a Hydrochlori 01-03 (Same as: l de 5 MG 21:59: Roxicodone Herm shama Oral Tablet ) Fentanyl No Notes: Memoria 01-03 (Same as: l 21:59: Sublimaze) Preservati ve free. Hydromorpho No Notes: Dannie pat ne 01-03 Same as l 21:59: Dilaudid Flumazenil No Notes: Memor ia 01-03 (Same as: l 21:59: Romazicon) Naloxone No Notes: Memoria -08 Same as l 21:59: Narcan Ondansetron No Notes: Dannie pat -08 (Same as: l 21:59: Zofran) MEDICATION WASTE Product Size: 4 mg Product Wasted: ___ mg hydromorpho No Route: IV, Memoria ne (ANES) 01-03 Drug form: l 15:23: INJ, ONCE, Duy Stop date: 01/03/21 10:23:00 CDT fentaNYL No Route: IV, Mem oria (ANES) 01-03 Drug form: l 15:07: INJ, ONCE, Stop date: 01/03/21 10:07:00 CDT phenylephri No Route: IV, Memoria ne (ANES) 01-03 Drug form: l 15:07: INJ, ONCE, Duy 00 Stop date: 01/03/21 10:07:00 CDT midazolam 0 No Route: IV, Me [...] Drug form: l 200 14:50: INJ, Start [place] microgram 00 date: 01/03/21 9:50:00 CDT, Stop date: 01/03/21 10:50:00 CDT ceFAZolin No Route: IV, Me moria (ANES) 01-03 Drug form: l 14:31: INJ, ONCE, Stop date: 01/03/21 9:31:00 CDT heparin No [...] Lactated No Route: IV, Mem oria Ringers 08 Total l Injection 14:00: Volume: Brianna nn [...] Memoria 01-02 (Same as: l 14:00: Onfi) [place] reserved for Neurology use only NS (Bolus) No 1,000 mL, Me moria IV 01-01 1,000 l 13:17: ml/hr, [place] 00 Infuse Over: 1 hr, Route: IV, 1,000, Drug form: INJ, ONCE, Priority: STAT, Dosing Weight 68.182 kg, Start date: 01/01/21 8:17:00 CDT, Stop date: 01/01/21 8:17:00 CDT, 0 Petrolatum No Notes: Memor ia 0.41 MG/MG 12-30 (Same as: l Topical 14:31: Aquaphor) Brianna nn Ointment 00 [Aquaphor] Aquaphor No Notes: Memoria 12-30 (Same as: l 12:52: Aquaphor) Potassium No Notes: Memori a Chloride 12-28 (Same as: l 13:32: Potassium Chloride) Potassium No Notes: Memori a Chloride 12-27 (Same as: l 13:06: Potassium Chloride) Dulcolax No Notes: Memoria Laxative 12-27 (Same As: l 02:15: Dulcolax, Bisco-Lax) PlasmaLyte No Notes: Memor ia A PH-7.4 12-27 (Same as: l 1,000 mL 00:47: Isolyte S Herm shama PH7.4, Normosol-R PH 7.4, Plasma-Lyt e A [...] as: l de 5 MG 16:31: Roxicodone Oral Tablet ) Hydromorpho No Notes: Dannie [...] phenylephri No Route: IV, Memoria ne (ANES) 830 Drug form: l 15:06: INJ, ONCE, [place] 00 Stop date: 12/25/20 10:06:00 CDT Isolyte S No Route: IV, Me moria PH 7.4 8 Total l (ANES) 500 15:00: Volume: Herm [...] 12-22 Drug form: l 23:44: INJ, ONCE, Duy 00 Stop date: 12/22/20 18:44:00 CDT glycopyrrol No [...] 12-22 Drug form: l 20:27: INJ, ONCE, [place] 00 Stop date: 12/22/20 15:27:00 CDT hydromorpho No [...] 10 mg 16:26: INJ, Start Scottie n date: 12/22/20 11:26:00 CDT, Stop date: 12/22/20 12:26:00 CDT midazolam No Route: IV, Me moria (ANES) 12-22 Drug form: l 15:28: SOLN, Duy 00 ONCE, Stop date: 12/22/20 10:28:00 CDT phenylephri No Route: IV, Memoria ne (ANES) + 12-22 Drug form: l Sodium 15:28: INJ, ONCE, Brianna nn Chloride 00 Stop date: 0.9% IV 12/22/20 (ANES) 99 10:28:00 mL CDT Hydralazine No Notes: Dannie pat 12-22 (Same as: l 15:07: Apresoline ) Push over 5 minutes esmolol No Notes: Memoria 12-22 (Same as: l 15:07: Brevibloc) Labetalol No 10 mg, 2 Dannie pat - mL, Route: l 15:07: IVP, Drug form: INJ, Q5Min, Dosing Weight 68.182, kg, PRN Elevated BP, Start date: 12/22/20 10:07:00 CDT, Duration: 5 doses or times, Stop date: 12/23/20 0:00:00 CDT, 0 Acetaminoph No Notes: Max Memoria en 12-22 acetaminop l 15:07: hen 4000 [place] 00 mg/day (4 gm/day). (Same as: Tylenol [...] Duy 00 Stop date: 12/22/20 9:47:00 CDT fentaNYL No Route: IV, Mem oria (ANES) 12-22 Drug form: l 14:47: INJ, ONCE, Duy 00 Stop date: 12/22/20 9:47:00 CDT vasopressin No [...] 12/22/20 9:36:00 CDT rocuronium No Route: IV, Akila henryria (ANES) 12-22 Drug form: l 14:21: INJ, [...] Memoria 8-26 (Same as: l 21:00: Lovenox) Dulcolax No Notes: Memoria Laxative 8- (Same As: l 20:42: Dulcolax, Bisco-Lax) Lovenox No Notes: Memoria 12-20 (Same as: l 19:00: Lovenox) sugammadex No Route: IV, M emoria (ANES) 12-19 Drug form: l 14:00: SOLN, 00 ONCE, Stop date: 12/19/20 9:00:00 CDT [...] INJ, ONCE, Stop date: 12/19/20 8:30:00 CDT phenylephri No Route: IV, Memoria ne (ANES) 12-19 Drug form: l 13:19: INJ, ONCE, Stop date: 12/19/20 8:19:00 CDT Acetaminoph No [...] s with feeding tube less than 14 [place] (Dobhoff, J-tube etc) and pediatric and patients. tamsulosin No Notes: Memor ia 12-18 (Same As: l 20:05: Flomax) "Do Not Crush" sennosides, No Notes: Dannie pat ASSISTED 12-17 (Same as: l 02:00: Senokot) POLYETHYLEN No Notes: Dannie pat E GLYCOL 12-16 Dissolve l 3350 14:00: in 8 oz of water or juice. (Same as: Miralax) clobazam No Notes: Memoria 12-16 (Same as: l 14:00: Onfi) Duy reserved for Neurology use only 24 HR [...] pat date 12-16 (Same l 14:00: as:Ritalin [place] 00 ) Dilaudid No Notes: Memoria 12-16 Same as l 12:52: Dilaudid Duy 00 Aspirin 81 Yes Notes: Do Me moria MG Enteric 12-16 not crush l Coated 11:00: or chew. [place] Tablet (Same As: Ecotrin) Aspirin No Notes: Memoria 12-16 Take with l 11:00: food. Duy 00 PlasmaLyte No Notes: Memor ia A PH-7.4 12-16 (Same as: l 500 mL 10:05: Isolyte S Scottie n 00 PH7.4, Normosol-R PH 7.4, Plasma-Lyt e A ) Acetaminoph No Notes: Max Memoria en 12-16 acetaminop l 06:00: hen 4000 [place] 00 mg/day (4 gm/day). (Same as: Tylenol Extra Strength) gabapentin No Notes: Memor ia 12-16 (Same as: l 06:00: Neurontin) [place] 00 Oxycodone No Notes: Memori a Hydrochlori 12-16 (Same as: l de 5 MG 06:00: Roxicodone Herm shama Oral Tablet ) Naloxone No Notes: Memoria 12-16 Same as l 06:00: Narcan Duy 00 heparin No Notes: Memoria additive 12-16 Total l 25,000 unit 05:38: Concentrat [place] [500 00 ion = 50 unit/hr] + [...] Phenergan) ondansetron No Route: IV, Memoria (ANES) 12-15 Drug form: l 23:43: INJ, ONCE, Stop date: 12/15/20 18:43:00 CDT sugammadex No Route: IV, M emoria (ANES) 12-15 Drug form: l 23:38: SOLN, ONCE, Stop date: 12/15/20 18:38:00 CDT heparin No Notes: Memoria additive 12-15 Total l 25,000 unit 22:19: Concentrat Duy [7.5 00 ion = 50 unit/kg/hr] unit/ ml + Premix Total Diluent volume = Sodium 500 ml Chloride Send Med 0.45% 500 Request 2 mL hours prior to next bag heparin No Route: IV, Dannie pat (ANES) 12-15 Drug form: l 22:01: INJ, ONCE, [place] 00 Stop date: 12/15/20 17:01:00 CDT calcium No Route: IV, Dannie pat chloride 12-15 Drug form: l (ANES) 21:20: INJ, ONCE, Brianna Stop date: 12/15/20 16:20:00 CDT Isolyte S No Route: IV, Me moria PH 7.4 8 Total l (ANES) 500 19:55: Volume: Herm shama mL 500, Start date: 12/15/20 14:55:00 CDT, Stop date: 12/15/20 15:55:00 CDT acetaminoph No Route: IV, Memoria en (ANES) 12-15 Drug form: l 18:52: INJ, ONCE, Stop date: 12/15/20 13:52:00 CDT hydromorpho No Route: IV, Memoria ne (ANES) 12-15 Drug form: l 16:53: INJ, ONCE, Stop date: 12/15/20 11:53:00 CDT Hydralazine No 10 mg, Dannie pat 12-15 Route: l 16:20: IVP, Duy 00 Q20Min, Dosing Weight 68.1, kg, PRN Elevated BP, Start date: 12/15/20 11:20:00 CDT, Duration: 2 doses or times, Stop date: Limited # of times Labetalol No 10 mg, Memori a 12-15 Route: l 16:20: IVP, [place] 00 Q5Min, Dosing Weight 68.1, kg, PRN [...] oria ne 12-15 Route: l 16:20: IVP, [place] 00 Q5Min, Dosing Weight 68.1, kg, PRN Pain Score 7-10, Start date: 12/15/20 11:20:00 CDT, Duration: 4 doses or times, Stop date: Limited # of times Flumazenil 2020-0 No 0.2 mg, Dannie pat 12-15 Route: l 16:20: IVP, PRN, Dosing Weight 68.1, kg, PRN Benzodiaze pine Reversal, Initial dose, Start date: 12/15/20 11:20:00 CDT, Duration: 30 day, Stop date: 01/14/21 11:19:00 CDT Naloxone 2020-0 No 0.4 mg, Memori a 12-15 Route: l 16:20: IVP, [place] 00 Q2MIN, Dosing Weight 68.1, kg, PRN [...] CDT Sodium No 250 mL, Memoria Chloride 8-20 Rate: To l 0.9% 16:12: prime line [place] (titrate) 00 and flush 250 mL remaining blood products., Dosing Weight 68.1, kg, Route: IV, Total Volume: 250, Start Date: 12/15/20 11:12:00 CDT, Duration: 1 day, Stop date: 12/16/20 11:11:00 CDT, Replace Every: 24 hr, 0 glycopyrrol No Route: IV, Memoria ate (ANES) 8-20 Drug form: l 15:12: INJ, ONCE, Stop date: 12/15/20 10:12:00 CDT dexamethaso No Route: IV, Memoria ne (ANES) 8- Drug form: l 15:07: INJ, ONCE, Stop date: 12/15/20 10:07:00 CDT Sodium No Route: IV, Memor ia Chloride 8-20 Total l 0.9% IV 14:32: Volume: Duy (ANES) 500 00 500, Start mL date: 12/15/20 9:32:00 CDT, Stop date: 12/15/20 10:32:00 CDT ePHEDrine No Route: IV, Me moria (ANES) 8-20 Drug form: l 14:26: INJ, ONCE, Stop date: 12/15/20 9:26:00 CDT ceFAZolin No Route: IV, Me moria (ANES) 8-20 Drug form: l 14:26: INJ, ONCE, Stop date: 12/15/20 9:26:00 CDT lidocaine No Route: IV, Me moria (ANES) 8-20 Drug form: l 14:01: INJ, ONCE, Stop date: 12/15/20 9:01:00 CDT propofol No Route: IV, Mem oria (ANES) 8-20 Drug form: l 14:01: INJ, ONCE, Stop date: 12/15/20 9:01:00 CDT rocuronium No Route: IV, M emoria (ANES) 12-15 Drug form: l 14:01: INJ, ONCE, Duy Stop date: 12/15/20 9:01:00 CDT fentaNYL No Route: IV, Mem oria (ANES) 12-15 Drug form: l 14:01: INJ, ONCE, [place] Stop date: 12/15/20 9:01:00 CDT phenylephri No Route: IV, Memoria ne (ANES) 12-15 Drug form: l 14:01: INJ, ONCE, [place] 00 Stop date: 12/15/20 9:01:00 CDT Lactated No Route: IV, Mem oria Ringers 8 Total l Injection 12:40: Volume: Brianna nn IV (ANES) 00 1,000, 1000 mL Start date: 12/15/20 7:40:00 CDT, Stop date: 12/15/20 8:40:00 CDT Isolyte S No Notes: Memori a PH 7.4 8 (Same as: l 1,000 mL 11:48: Isolyte S Herm shama 00 PH7.4, Normosol-R PH 7.4, Plasma-Lyt e A ) Acetaminoph No 1,000 mg, M emoria en 12-15 Route: PO, l 11:48: Drug form: [place] 00 TAB, PRE OP, Dosing Weight 68.182, kg, Priority: NOW, Start date: 12/15/20 6:48:00 CDT, Duration: 1 doses or times metoprolol No 25 mg = 1 Me moria tartrate 25 8-18 tab, PO, l mg oral 16:53: BID, 0 Duy tablet 00 Refill(s) lisinopril No 20 mg = 1 Me moria 20 mg oral 8-18 tab, PO, l tablet 16:51: Daily, 0 Duy 00 Refill(s) No known No No known [facility] medications 8-11 medication He alth 14:00: s 34 No known No No known [facility] medications 8-11 medication He alth 14:00: s 34 valproic 1-0 Yes Take by [facility] acid 6-02 mouth. Health (Depakene) 19:01: 250 MG/5ML 06 oral liquid valproic 1-0 Yes Take by [place] acid 6-02 mouth. Health (Depakene) 19:01: 250 MG/5ML 06 oral liquid valproic 2021-0 Yes Take by [place] acid 6-02 mouth. Health (Depakene) 19:01: 250 MG/5ML 06 oral liquid valproic 1-0 Yes Take by [facility] acid 6-02 mouth. Health (Depakene) 19:01: 250 MG/5ML 06 oral liquid valproic 1-0 Yes Take by [facility] acid 6-02 mouth. Health (Depakene) 19:01: 250 MG/5ML 06 oral liquid valproic 1-0 Yes Take by [facility] acid 6-02 mouth. Health (Depakene) 19:01: 250 MG/5ML 06 oral liquid cloBAZam 1-0 Yes 10mg Q.5D Take 10 [...] 19:01: twice a suspension 05 day. valproic 1-0 Yes Take by [place] acid [...] 14:01: twice a suspension 05 day. Mupirocin 2021-0 Yes 1 appl, Memor ia 0.02 MG/MG 5-28 TOP, l Topical 15:59: Daily, X 7 Herm shama Ointment 00 day, # 22 [Bactroban] gm, 0 Refill(s), Pharmacy: [facility], 162.56, cm, 09/15/20 23:50:00 CDT, Height, 54.545, kg, 09/15/20 23:50:00 CDT, Weight clobazam 10 Yes 10 mg = 1 M emoria mg oral 5-28 tab, PO, l tablet 15:52: BID, 0 [place] 00 Refill(s) Aspirin 81 Yes 81 mg [...] Scottie n Topical 00 Refill(s), Lotion Pharmacy: [facility] 256, 162.56, cm, 09/15/20 23:50:00 CDT, Height, 54.545, kg, 09/15/20 23:50:00 CDT, Weight meropenem Yes 500 mg, Memor ia 500 mg 5-28 IVPB, l intravenous 15:52: [id number], 0 H ermann injection 00 Refill(s) metoprolol Yes 50 mg = 1 Me moria tartrate 50 5-28 tab, PO, l mg oral 15:51: BID, # 60 Brianna nn tablet 00 tab, 1 Refill(s), Pharmacy: [facility] 256, 162.56, cm, 09/15/20 23:50:00 CDT, Height, 54.545, kg, 09/15/20 23:50:00 CDT, Weight methylpheni Yes 20 mg = 2 M emoria date 10 mg 5-28 tab, PO, l oral tablet 15:51: BID, 0 Herm shama 00 Refill(s) losartan 50 2020-0 Yes 50 mg = 1 M emoria mg oral 5-28 tab, PO, l tablet 15:51: Daily, 0 [place] 00 Refill(s) 24 HR 2020-0 Yes 500 mg = 1 Tena bernstein Divalproex 5-28 tab, PO, l Sodium 500 15:51: Q12H, 0 Herm shama MG Extended 00 Refill(s) Release Tablet metoprolol 2020-0 Yes [facility] tartrate 5-28 Health [...] metoprolol 2020-0 2021- No [place] tartrate 5-28 06- Health (Lopressor) 00:00: 00:00 50 MG 00 :00 tablet Hydrocortis No Route: Dannie pat one 25 5-27 TOP, TID, l MG/ML 14:00: Drug form: Scottie n Topical 00 CRM, Start Lotion date: 09/21/20 9:00:00 CDT, Duration: 30 day, Stop date: 10/20/20 17:00:00 CDT, 0 meropenem 0 No Notes: Memori a 5-27 Same as l 04:00: Merrem Hydralazine No 10 mg, Dannie pat 5-25 Route: IV, l 17:58: [id number], [place] 00 Dosing Weight 54.545, kg, PRN Hypertensi on, Start date: 09/19/20 12:58:00 CDT, Duration: 30 day, Stop date: 10/19/20 12:57:00 CDT Ceftriaxone 0 No Notes: Dannie pat 5-25 (Same As: l 13:00: Rocephin). Use with 100 mL NS and infuse over 30 min MEDICATION WASTE Product Size: 2000 mg Product Wasted: ___ mg Diflucan No Notes: Memoria - (Same as: l 20:00: Diflucan) Hazardous Drug [...] n each day. clobazam No Notes: Memoria - (Same as: l 14:00: Onfi) reserved for Neurology use only 24 HR No Notes: Memoria Divalproex - Hazardous l Sodium 500 14:00: Drug Group H ermann MG Extended 00 2:Non-anti Release neoplastic Tablet Hazardous Drug -- Refer to safe handling procedure PPE Matrix (Same as: Depakote ER) Once daily dosing; indicated for migraines. Divalproex sodium extended-r elease tab. Do not chew or crush. Methylpheni No 20 mg, 1 Me moria date -22 tab, l 14:00: Route: PO, Duy Drug form: TAB, BID, Dosing Weight 54.545, kg, Start date: 09/16/20 9:00:00 CDT, Duration: 30 day, Stop date: 10/15/20 17:00:00 CDT metoprolol No Notes: Memor ia tartrate -22 (Same as: l 14:00: Lopressor) Aspirin 81 No Notes: Do Me moria MG Enteric 5-22 not crush l Coated 14:00: or chew. Duy Tablet 00 (Same As: Ecotrin) Lovenox No Notes: Memoria -22 (Same as: l 14:00: Lovenox) Vancomycin No 2000 mg: Me moria 5-22 infuse l 14:00: over 2.5 [place] 00 hours For adult patients only: Round to nearest 250 mg per Medical Staff approval MEDICATION WASTE Product Size: 1000 mg Product Wasted: ___ mg Vancomycin No Notes: Memor ia 5-22 TIME l 13:00: CRITICAL MEDICATION (Same As: Vancocin) For adult patients only: Round to nearest 250 mg per Medical Staff approval Lidocaine No Notes: Memori a 0.04 MG/MG - Apply only l Medicated 10:00: once for Herm shama Patch 00 up to 12 hours in a 24-hour period (12 hours on and 12 hours off). (Same as: Aspercreme Lidocaine Patch) "Remove old patch before applicatio n of new patch" Aspirin 81 No 81 mg = 1 Me moria MG Enteric 5-22 tab, PO, l Coated 09:11: Daily, # [place] Tablet 00 90 tab, 3 Refill(s) Vancomycin No 2000 mg: Me moria 5-22 infuse l 09:00: over 2.5 Duy 00 hours Iohexol No 100 mL, Memoria 5-22 Route: l 08:00: IVP, Drug Form: SOLN, Dosing Weight 54.545, kg, ONCALL, STAT, Start date: 09/16/20 3:00:00 CDT, Duration: 1 doses or times, Dose = 2.2ml/kg, Max dose = 100ml -- "To be infused by Radiology Staff ONLY" cefepime No Notes: Memoria 5-22 (Same As: l 06:00: Maxipime) 00 MEDICATION WASTE Product Size: 1000 mg Product Wasted: ___ mg Vancomycin No Notes: Memor ia 5-22 Vancomycin l 04:50: Pharmacy [place] 35 Dosing Protocol PHARMAC Y USE ONLY Note: This is not a medication order. This is a consultati on order. cefepime No Notes: Memoria 5-22 (Same as: l 04:48: Maxipime) 00 MEDICATION WASTE Product Size: 2000 mg Product Wasted: ___ mg Dextrose No 12.5 gm, Memor ia 50% Syringe - 25 mL, l ([id number]) 04:47: Route: IVP, Drug Form: INJ, Dosing Weight 54.545, kg, PRN, PRN Blood Glucose Results, Start date: 09/15/20 23:47:00 CDT, Duration: 30 day, Stop date: 10/15/20 23:46:00 CDT, 0 Glucagon No 1 mg, Memoria - Route: IM, l 04:47: Drug form: PDR/INJ, PRN, Dosing Weight 54.545, kg, PRN Blood Glucose Results, Start date: 09/15/20 23:47:00 CDT, Duration: 30 day, Stop date: 10/15/20 23:46:00 CDT, 0 sennosides, No Notes: Dannie pat ASSISTED 5-22 (Same as: l 04:47: Senokot) POLYETHYLEN No Notes: Dannie pat E GLYCOL 5-22 Dissolve l 3350 04:47: in 8 oz of water or juice. (Same as: Miralax) Ondansetron No Notes: Dannie pat 5-22 (Same as: l 04:47: Zofran) MEDICATION WASTE Product Size: 4 mg Product Wasted: ___ mg Melatonin No Notes: Memori a - (Same as: l 04:47: Melatonin) Acetaminoph No Notes: Do M emoria en 09-16 not exceed l 04:47: 4 gm/day. [place] 00 (Same as: Tylenol) LR IV 1,000 No 1,000 mL, M emoria mL 09-16 Rate: 55 l 04:47: ml/hr, Infuse over: 18.2 hr, Route: IV, Dosing Weight 54.545 kg, Total Volume: 1,000, Start date: 09/15/20 23:47:00 CDT, Duration: 1 day, Stop date: 09/16/20 23:46:00 CDT, 1.58, m2, 0 Tums No Notes: Memoria - (Same As: l 04:47: Tums) Calcium Carbonate 500 mg = 200 mg elemental calcium Dose = mg calcium carbonate ( mg elemental calcium) Simethicone No Notes: Dannie pat - (Same as: l 04:47: Mylicon) Lubricant No Notes: Memori a Eye Drops 09-16 (Same as: l 04:47: Aquasite) Nasal Moist No Notes: Dannie pat 0.65% 09-16 (sodium l solution 04:47: chloride Brianna 0.65% 15 ml nasal DROP) (Same as: Nasal Moist) Tessalon No Notes: Memoria Perles - (Same As: l 04:47: Tessalon Perles) "Do Not Crush" Guaifenesin No Notes: Dannie pat 5-22 (Same as: l 04:47: Organidin Duy 00 NR) Blistex No Notes: Memoria topical 09-16 Same as: l ointment 04:47: Blistex Scottie n albuterol No Notes: Memori a 90 mcg/inh 09-16 Albuterol l inhalation 04:47: 90 [place] aerosol 00 microgram/ inh 8.5gm HFA WASTE: [...] chew or crush. clobazam No Notes: Memoria 09-16 (Same as: l 01:35: Onfi) reserved for Neurology use only Vancomycin No 2000 mg: Me moria - infuse l 00:01: over 2.5 hours Saline No Notes: Memoria Flush 0.9% 09-15 Same as: l 21:20: BD Posiflush Sterile Calcium No 1,600 mL, Memor ia Chloride 09-15 2000 l 0.0014 21:20: ml/hr, Duy MEQ/ML / 00 Infuse Potassium Over: 0.8 Chloride hr, Route: 0.004 IV, 1,600, MEQ/ML / Drug form: Sodium INJ, ONCE, Chloride Priority: 0.103 STAT, MEQ/ML / Dosing Sodium Weight Lactate 54.545 kg, 0.028 Start MEQ/ML date: Injectable 09/15/20 Solution 16:20:00 CDT, Stop date: 09/15/20 16:20:00 CDT, 0 cefepime 2021-0 No Notes: [facility] 09-15 (Same as: l 21:20: Maxipime) MEDICATION WASTE Product Size: 2000 mg Product Wasted: ___ mg divalproex 2021-0 Yes [place] ([place] [address] [facility]) 500 MG 00:00: 24 hr 00 tablet divalproex 2021-0 Yes [place] ([place] [address] [facility]) 500 MG 00:00: 24 hr 00 tablet divalproex 2021-0 Yes [place] ([place] [address] [facility]) 500 MG 00:00: 24 hr 00 tablet divalproex 2021-0 Yes [place] ([place] [address] [facility]) 500 MG 00:00: 24 hr 00 tablet divalproex 2021-0 Yes [place] ([place] [address] [facility]) 500 MG 00:00: 24 hr 00 tablet divalproex 2021-0 Yes [place] ([place] [address] [facility]) 500 MG 00:00: 24 hr 00 tablet divalproex 2021-0 Yes [place] ([place] [address] [facility]) 500 MG 00:00: 24 hr 00 tablet divalproex 2021-0 Yes [place] ([place] [address] [facility]) 500 MG 00:00: 24 hr 00 tablet divalproex 2021-0 Yes [place] ([place] [address] [facility]) 500 MG 00:00: 24 hr 00 tablet divalproex 2021-0 Yes [place] ([place] [address] [facility]) 500 MG 00:00: 24 hr 00 tablet divalproex 2021-0 Yes [place] ([place] [address] [facility]) 500 MG 00:00: 24 hr 00 tablet divalproex 2021-0 Yes [place] ([place] [address] [facility]) 500 MG 00:00: 24 hr 00 tablet divalproex 2021-0 Yes [place] ([place] [address] [facility]) 500 MG 00:00: 24 hr 00 tablet divalproex 2021-0 Yes [place] ([place] [address] [facility]) 500 MG 00:00: 24 hr 00 tablet divalproex 2021-0 Yes [place] ([place] [address] [facility]) 500 MG 00:00: 24 hr 00 tablet divalproex 2021-0 Yes [place] ([place] [address] [facility]) 500 MG 00:00: 24 hr 00 tablet divalproex 2021-0 Yes [place] ([place] [address] [facility]) 500 MG 00:00: 24 hr 00 tablet divalproex 2021-0 Yes [place] ([place] [address] [facility]) 500 MG 00:00: 24 hr 00 tablet divalproex 2021-0 Yes [place] ([place] [address] [facility]) 500 MG 00:00: 24 hr 00 tablet divalproex 2021-0 Yes [place] ([place] [address] [facility]) 500 MG 00:00: 24 hr 00 tablet divalproex 2021-0 Yes [place] ([place] [address] [facility]) 500 MG 00:00: 24 hr 00 tablet divalproex 2021-0 Yes [place] ([place] [address] [facility]) 500 MG 00:00: 24 hr 00 tablet divalproex 2021-0 Yes [place] ([place] [address] [facility]) 500 MG 00:00: 24 hr 00 tablet divalproex 2021-0 Yes [place] ([place] [address] [facility]) 500 MG 00:00: 24 hr 00 tablet divalproex 2021-0 Yes [place] ([place] [address] [facility]) 500 MG 00:00: 24 hr 00 tablet divalproex 2021-0 Yes [place] ([place] [address] [facility]) 500 MG 00:00: 24 hr 00 tablet divalproex 2021-0 Yes [place] ([place] [address] [facility]) 500 MG 00:00: 24 hr 00 tablet divalproex 2021-0 Yes [place] ([place] [address] [facility]) 500 MG 00:00: 24 hr 00 tablet divalproex 2021-0 Yes [place] ([place] [address] [facility]) 500 MG 00:00: 24 hr 00 tablet divalproex 2021-0 Yes [place] ([place] [address] [facility]) 500 MG 00:00: 24 hr 00 tablet divalproex 2021-0 Yes [place] ([place] [address] [facility]) 500 MG 00:00: 24 hr 00 tablet divalproex 2021-0 Yes [place] ([place] [address] [facility]) 500 MG 00:00: 24 hr 00 tablet divalproex 2021-0 Yes [place] [address] [facility]) 500 MG 00:00: 24 hr 00 tablet divalproex 2021-0 Yes [place] [address] [facility]) 500 MG 00:00: 24 hr 00 tablet divalproex 2021-0 Yes [place] [address] [facility]) 500 MG 00:00: 24 hr 00 tablet divalproex 2021-0 Yes [place] [address] [facility]) 500 MG 00:00: 24 hr 00 tablet divalproex 2021-0 Yes [place] [address] [facility]) 500 MG 00:00: 24 hr 00 tablet divalproex 2021-0 Yes [place] [address] [facility]) 500 MG 00:00: 24 hr 00 tablet divalproex 2021-0 Yes [place] [address] [facility]) 500 MG 00:00: 24 hr 00 tablet divalproex 2021-0 Yes [place] [address] [facility]) 500 MG 00:00: 24 hr 00 tablet divalproex 2021-0 Yes [place] [address] [facility]) 500 MG 00:00: 24 hr 00 tablet divalproex 2021-0 Yes [place] [address] [facility]) 500 MG 00:00: 24 hr 00 tablet divalproex 2021-0 2022- No [place] ([place] [address] 09-26 [facility]) 500 MG 00:00: 00:00 24 hr 00 :00 tablet Saline 2020-0 No Notes: [facility] Flush 0.9% 5-03 (Same as: l 21:00: BD [place] 00 Posiflush) Lidocaine No Notes: [facility] a Hydrochlori 5-03 (Same as: l de 10 MG/ML 15:00: Xylocaine) [place] Injectable 00 Solution Saline No Notes: [facility] Flush 0.9% 5-03 (Same as: l 14:32: BD [place] Posiflush) Saline No Notes: [facility] Flush 0.9% 5-03 (Same as: l 05:00: BD [place] Posiflush) Lidocaine No Notes: [facility] a Hydrochlori 5-03 (Same as: l de 10 MG/ML 01:00: Xylocaine) [place] Injectable 00 Solution Saline No Notes: [facility] Flush 0.9% 5-03 (Same as: l 00:30: BD [place] Posiflush) Lisinopril No 20 mg, 1 Mem oria 5-02 tab, l 14:00: Route: PO, [place] 00 Drug form: TAB, Daily, Dosing Weight 68.182, kg, Start date: 08/27/20 9:00:00 CDT, Duration: 30 day, Stop date: 09/25/20 9:00:00 CDT remove No Notes: [facility] patch 5-02 Remove l 02:00: patch 12 [place] 00 hours after applicatio n each day. Onfi No 5 mg, [facility] 5- Route: PO, l 22:00: Drug form: [place] 00 TAB, BID, Dosing Weight 68.182, kg, [...] [facility] 5-01 (Same as l 18:00: :Ritalin) Duy 00 clobazam No Notes: [facility] 5-01 (Same as: l 16:52: Onfi) [place] reserved for Neurology use only Bacitracin 2021-0 No 1 appl, Dannie pat 08-26 Route: l 16:52: TOP, Duy 00 Daily, Drug form: OINT, Start date: 08/26/20 11:52:00 CDT, Duration: 30 day, Stop date: 09/25/20 9:00:00 CDT, 0 Lopressor No Notes: [facility]ori a - (Same as: l 16:52: Lopressor) Duy 00 Cozaar No Notes: Memoria 5- (Same as: l 16:51: Cozaar) [place] 00 24 HR No Notes: Memoria Divalproex - Hazardous l Sodium 500 16:51: Drug Group H ermann MG Extended 00 2:Non-anti Release neoplastic Tablet Hazardous Drug -- Refer to safe handling procedure PPE Matrix (Same as: Depakote ER) Once daily dosing; indicated for migraines. Divalproex sodium extended-r elease tab. Do not chew or crush. clobazam 10 Yes 10 mg, PO, Memoria mg oral - BID, # 60 l tablet 16:44: tab, 0 [place] 00 Refill(s) methylpheni Yes 20 mg = 1 M emoria date 20 mg 5- tab, PO, l oral tablet 16:28: BID, Scottie n 00 breakfast and lunch, # 60 tab, 0 Refill(s) losartan 50 Yes 50 mg = 1 M emoria mg oral 5-01 tab, PO, l tablet 16:27: Daily, # Duy 00 30 tab, 0 Refill(s) 24 HR Yes 500 mg = 1 Memori a Divalproex - tab, PO, l Sodium 500 16:27: Q12H, [...] patch" Lidocaine No Notes: Memori a Hydrochlori 5-01 (Same as: l de 10 MG/ML 13:00: Xylocaine) [place] Injectable 00 Solution Saline No 10 mL, Memoria Flush 0.9% 5-01 Route: l 13:00: IVP, Drug [place] 00 Form: INJ, Dosing Weight 68.182, kg, Q8H, Start date: 08/26/20 8:00:00 CDT, Duration: 30 day, Stop date: 09/25/20 0:00:00 CDT Saline No 10 mL, Memoria Flush 0.9% 5- Route: l 12:12: IVP, Drug Duy Form: INJ, Dosing Weight 68.182, kg, PRN, PRN Line Flush, Start date: 08/26/20 7:12:00 CDT, Duration: 30 day, Stop date: 09/25/20 7:11:00 CDT Saline No Notes: Memoria Flush 0.9% 5-01 (Same as: l 05:00: BD Duy 00 Posiflush) Docusate No Notes: Memoria 5-01 (Same as: l 02:00: Colace) Duy 00 (Do Not Crush) sennosides, No Notes: Dannie pat ASSISTED - (Same as: l 02:00: Senokot) [place] 00 Saline No Notes: Memoria Flush 0.9% 5-01 (Same as: l 02:00: BD Duy 00 Posiflush) Lidocaine No Notes: Memori a Hydrochlori 5-01 (Same as: l de 10 MG/ML 01:00: Xylocaine) Duy Injectable 00 Solution Vancomycin No 2001 mg: Me moria 5-01 infuse l 01:00: over 2.5 [place] 00 hours For adult patients only: Round to nearest 250 mg per Medical Staff approval MEDICATION WASTE Product Size: 1000 mg Product Wasted: ___ mg Saline No Notes: Memoria Flush 0.9% 5-01 (Same as: l 00:59: BD Posiflush) Sodium No 1,000 mL, Memori a Chloride 5- Rate: 50 l 0.9% IV 00:58: ml/hr, Duy 1,000 mL 00 Infuse over: 20 hr, Route: IV, Dosing Weight 69.091 kg, Total Volume: 1,000, Start date: 08/25/20 19:58:00 CDT, Duration: 30 day, Stop date: 09/24/20 19:57:00 CDT, 1.78, m2, 0 Acetaminoph No Notes: Do M emoria en 5-01 not exceed l 00:58: 4 gm/day. [place] (Same as: Tylenol) Acetaminoph No Notes: Do M emoria en 325 MG / 5- not exceed l Hydrocodone 00:58: 4gm/day of Duy Bitartrate 00 acetaminop 10 MG Oral hen. (Same Tablet as: [place] 325/10) Morphine No Notes: Memoria 5-01 (Same l 00:58: as:MORPhin e Sulfate) Bisacodyl No Notes: Memori a 5-01 (Same As: l 00:58: Dulcolax, Bisco-Lax) Ondansetron No Notes: Dannie pat 5-01 (Same as: l 00:58: Zofran) MEDICATION WASTE Product Size: 4 mg Product Wasted: ___ mg Hydralazine No Notes: Dannie pat 5-01 (Same as: l 00:58: Apresoline ) Push over 5 minutes Labetalol No 10 mg, 2 Dannie pat 5-01 mL, Route: l 00:58: IVP, Drug form: INJ, Q15Min, Dosing Weight 69.091, kg, PRN Hypertensi on, Start date: 08/25/20 19:58:00 CDT, Duration: 3 doses or times, Stop date: Limited # of times, 0 Saline No Notes: Memoria Flush 0.9% 5-01 (Same as: l 00:58: BD Duy 00 Posiflush) Vancomycin No 1,000 mg, Me moria [...] day, # 28 tab, 0 Refill(s), Pharmacy: [facility] 256, 162.56, cm, 08/16/20 6:16:00 CDT, Height, 69.091, kg, 08/16/20 6:16:00 CDT, Weight Acetaminoph Yes 1 - 2 tab, Memoria en 300 MG / 4-28 PO, Q4H, l Codeine 20:53: PRN Pain, Brianna nn Phosphate 00 X 4 day, # 30 MG Oral 36 tab, 0 Tablet Refill(s), [Tylenol Pharmacy: with [facility] 256, 162.56, cm, 08/16/20 6:16:00 [...] moria 4-25 infuse l 21:00: over 2.5 [place] 00 hours For adult patients only: Round to nearest 250 mg per Medical Staff approval MEDICATION WASTE Product Size: 1000 mg Product Wasted: 0 mg Bacitracin No 1 appl, Dannie pat 4-25 Route: l 14:00: TOP, Duy 00 Daily, Drug form: OINT, Start date: 08/20/20 9:00:00 CDT, Duration: 30 day, Stop date: 09/18/20 9:00:00 CDT, 0 heparin 2020-0 No Notes: Memoria 4-24 porcine l 21:00: heparin Duy glycopyrrol No Route: IV, Memoria ate (ANES) 4-23 Drug form: l 15:25: INJ, ONCE, Stop date: 08/18/20 10:25:00 CDT neostigmine No Route: IV, Memoria (ANES) 4-23 Drug [...] ceFAZolin No Route: IV, Me moria (ANES) 4- Drug form: l 13:48: INJ, ONCE, Stop date: 08/18/20 8:48:00 CDT midazolam No Route: IV, Me moria (ANES) 4-23 Drug form: l 13:43: SOLN, , Stop date: 08/18/20 8:43:00 CDT lidocaine No Route: IV, Me moria (ANES) 4-23 Drug form: l 13:43: INJ, ONCE, Stop date: 08/18/20 8:43:00 CDT propofol 0 No Route: IV, Mem oria (ANES) 08-18 Drug form: l 13:43: INJ, ONCE, [place] 00 Stop date: 08/18/20 8:43:00 CDT rocuronium 0 No Route: IV, M emoria (ANES) 08-18 Drug form: l 13:43: INJ, ONCE, Stop date: 08/18/20 8:43:00 CDT fentaNYL 0 No Route: IV, Mem oria (ANES) 08-18 Drug form: l 13:43: INJ, ONCE, Duy 00 Stop date: 08/18/20 8:43:00 CDT Labetalol 0 No 10 mg, Memori a 08-18 Route: l 13:42: IVP, Duy 00 Q5Min, Dosing Weight 69.091, kg, PRN Elevated BP, Start date: 08/18/20 8:42:00 CDT, Duration: 5 doses or times, Stop date: Limited # of times Acetaminoph 0 No 1,000 mg, M emoria en 08-18 Route: PO, l 13:42: Drug form: Duy 00 TAB, ONCE, Dosing Weight 69.091, kg, [...] oria ne 08-18 Route: l 13:42: IVP, [place] 00 Q5Min, Dosing Weight 69.091, kg, PRN Pain Score 7-10, Start date: 08/18/20 8:42:00 CDT, Duration: 4 doses or times, Stop date: Limited # of times Flumazenil 2021-0 No 0.2 mg, Dannie pat 08-18 Route: l 13:42: IVP, PRN, Dosing Weight 69.091, kg, PRN Benzodiaze pine Reversal, Initial dose, Start date: 08/18/20 8:42:00 CDT, Duration: 30 day, Stop date: 09/17/20 8:41:00 CDT Naloxone No 0.4 mg, Memori a 08-18 Route: l 13:42: IVP, Duy 00 Q2MIN, Dosing Weight 69.091, kg, PRN [...] (Same as: l MG Oral 14:00: Colace) [place] Capsule 00 (Do Not Crush) sennosides, No Notes: Dannie pat ASSISTED -21 (Same as: l 14:00: Senokot) [place] 00 Saline No Notes: Memoria Flush 0.9% - (Same as: l 14:00: BD [place] 00 Posiflush) Ritalin No Notes: Memoria -21 (Same as l 14:00: :Ritalin) Duy 24 HR No Notes: Memoria Divalproex - Hazardous l Sodium 500 14:00: Drug Group [...] Rate: 75 l 0.9% IV 09:17: ml/hr, [place] 1,000 mL 00 Infuse over: 13.3 hr, [...] times, 0 Bisacodyl No Notes: Memori a - (Same As: l 09:17: Dulcolax, Duy 00 Bisco-Lax) Ondansetron No Notes: Dannie pat 08-16 [...] / 08-16 (Same as: l Hydrocodone 09:16: [place] Brianna nn Bitartrate 00 325/5) Do 5 MG Oral not exceed Tablet 4gm/day of [[place] acetaminop 5/325] hen. Tylenol No Notes: Do Memor ia 08-16 not exceed l 09:15: 4 gm/day. (Same as: Tylenol) Saline No Notes: Memoria Flush 0.9% 4-21 (Same as: l 08:02: BD [place] 00 Posiflush) methylpheni 2021-0 Yes TAKE 1 UT date [...] 4-19 Health MG tablet 00:00: 00 losartan 2021-0 [...] 00:00: 25 MG 00 tablet metoprolol 2021-0 2022- No UT tartrate 2-24 06- Health (Lopressor) 00:00: 00:00 25 MG [...] 12:55: mouth Medical (MOVE FREE 32 daily. [place] [facility] ORAL) DOCOSAHEXAN 2020-0 Yes 1{capsu QD Take [address] OIC 9-10 le} capsule by Song ACID/EPA 12:55: mouth Medical (FISH OIL 32 daily. Center ORAL) Missing or 2020-0 Yes 1{tbl} QD [address] Non-Formula 9-10 [facility] 12:[facility]: Medical Medication 32 Center gabapentin 2020-0 Yes 100mg Q.[id number] Take [address] [facility] (NEURONTIN) 9-10 [id number] mg by L ukes 100 MG 12:55: [...] Medication 32 Center gabapentin 2020-0 Yes 100mg Q.[id number] Take [address] [facility] [address] (NEURONTIN) 9-10 [id number] mg by L ukes 100 MG 12:55: [...] Medication 32 Center gabapentin 2020-0 Yes 100mg Q.[id number] Take [address] [facility] [address] (NEURONTIN) 9-10 [id number] mg by Kristina orellanaes 100 MG 12:55: [...] Medication 32 Center gabapentin 2020-0 Yes 100mg Q.[id number] Take [address] [facility] [address] (NEURONTIN) 9-10 [id number] mg by L ukes 100 MG 12:55: [...] Medication 32 Center gabapentin 2020-0 Yes 100mg Q.[id number] Take [address] [facility] [address] (NEURONTIN) 9-10 [id number] mg by L ukes 100 MG 12:55: [...] 12:55: mouth Medical (MOVE FREE 32 daily. [place] [facility] ORAL) DOCOSAHEXAN 2020-0 Yes 1{capsu QD Take [address] OIC 9-10 le} capsule by Song ACID/EPA 12:55: mouth Medical (FISH OIL 32 daily. Center ORAL) Missing or 2020-0 Yes 1{tbl} QD [address] Non-Formula 9-10 daily. [facility] 12:55: Medical Medication 32 Center gabapentin 2020-0 Yes 100mg Q.[id number] Take [address] [facility] [address] (NEURONTIN) 9-10 [id number] mg by Kristina ukes 100 MG 12:55: [...] [facility] tablet 12:55: mouth Medical 32 daily. [place] GLUCOSAM/CH 2020-0 Yes 2{tbl} QD Take [address] OND/HYALU/C 9-10 tablets by Samia kes F BORATE 12:55: mouth Medical (MOVE FREE 32 daily. [facility] ORAL) DOCOSAHEXAN 2020-0 Yes 1{capsu QD Take [address] OIC 9-10 le} capsule by [facility] AC[facility]/EPA 12:55: mouth Medical (FISH OIL 32 daily. Center ORAL) Missing or 2020-0 Yes 1{tbl} QD [address] Non-Formula 9-10 daily. [facility] 12:[facility]: Medical Medication 32 Center gabapentin 2020-0 Yes 100mg Q.[id number] Take [address] [facility] [address] (NEURONTIN) 9-10 [id number] mg by L ukes 100 MG 12:55: [...] Medical (MOVE FREE 32 daily. Center [facility] ORAL) DOCOSAHEXAN 2020-0 Yes 1{capsu QD Take [address] OIC 9-10 le} capsule by [facility] ACID/EPA 12:55: mouth Medical (FISH OIL 32 daily. Center ORAL) Missing or 2020-0 Yes 1{tbl} QD [address] Non-Formula 9-10 daily. [facility] 12:55: Medical Medication 32 Center gabapentin 2020-0 Yes 100mg Q.[id number] Take [address] [facility] [address] (NEURONTIN) 9-10 [id number] mg by L ukes 100 MG 12:55: [...] [facility] tablet 12:55: mouth Medical 32 daily. [place] GLUCOSAM/CH 2020-0 Yes 2{tbl} QD Take [address] OND/HYALU/C 9-10 tablets by Samia alexander F BORATE 12:55: mouth Medical (MOVE FREE 32 daily. [place] [facility] ORAL) DOCOSAHEXAN 2020-0 Yes 1{capsu QD Take [address] OIC 9-10 le} capsule by Song ACID/EPA 12:55: mouth Medical (FISH OIL 32 daily. Center ORAL) Missing or 2020-0 Yes 1{tbl} QD [address] Non-Formula 9-10 daily. [facility] 12:55: Medical Medication 32 Center gabapentin 2020-0 Yes 100mg Q.[id number] Take [address] [facility] [address] (NEURONTIN) 9-10 [id number] mg by L ukes 100 MG 12:55: [...] St (ONFI ORAL) 9-10 by mouth 2 Smaia kes 12:55: (two) Medical 32 times Center [...] [facility] tablet 12:55: mouth Medical 32 daily. [place] GLUCOSAM/CH 2020-0 Yes 2{tbl} QD Take [address] OND/HYALU/C 9-10 tablets by Samia alexander F BORATE 12:55: mouth Medical (MOVE FREE 32 daily. [place] [facility] ORAL) DOCOSAHEXAN 2020-0 Yes 1{capsu QD Take [address] OIC 9-10 le} capsule by Song ACID/EPA 12:55: mouth Medical (FISH OIL 32 daily. [place] ORAL) Missing or 2020-0 Yes 1{tbl} QD [address] Non-Formula 9-10 daily. Samiakes ry 12:55: Medical Medication 32 Center gabapentin 2020-0 Yes 100mg Q.[id number] Take [address] [facility] (NEURONTIN) 9-10 [id number] mg by L ukes 100 MG 12:55: [...] Song tablet 12:55: mouth Medical 32 daily. [place] GLUCOSAM/CH 2020-0 Yes 2{tbl} QD Take [address] OND/HYALU/C 9-10 tablets by Samia alexander F BORATE 12:55: mouth Medical (MOVE FREE 32 daily. [place] [facility] ORAL) DOCOSAHEXAN 2020-0 Yes 1{capsu QD Take [address] OIC 9-10 le} capsule by Song ACID/EPA 12:55: mouth Medical (FISH OIL 32 daily. Center ORAL) Missing or 2020-0 Yes 1{tbl} QD [address] Non-Formula 9-10 daily. Song ry 12:55: Medical Medication 32 Center gabapentin 2020-0 Yes 100mg Q.[id number] Take [address] [facility] [address] (NEURONTIN) 9-10 [id number] mg by Kristina ukes 100 MG 12:55: [...] [facility] tablet 12:55: mouth Medical 32 daily. [place] GLUCOSAM/CH 2020-0 Yes 2{tbl} QD Take [address] OND/HYALU/C 9-10 tablets by Samia alexander F BORATE 12:55: mouth Medical (MOVE FREE 32 daily. [place] [facility]) DOCOSAHEXAN 2020-0 Yes 1{capsu QD Take [address] OIC 9-10 le} capsule by Song ACID/EPA 12:55: mouth Medical (FISH OIL 32 daily. Center ORAL) Missing or 2020-0 Yes 1{tbl} QD [address] Non-Formula 9-10 daily. benjamin ry 12:55: Medical Medication 32 Center gabapentin 2020-0 Yes 100mg Q.[id number] Take [address] [facility] (NEURONTIN) 9-10 [id number] mg by Kristina orellanaes 100 MG 12:55: [...] Song tablet 12:55: mouth Medical 32 daily. [place] GLUCOSAM/CH 2020-0 Yes 2{tbl} QD Take [address] OND/HYALU/C 9-10 tablets by Samia alexander F BORATE 12:55: mouth Medical (MOVE FREE 32 daily. [place] [facility] ORAL) DOCOSAHEXAN 2020-0 Yes 1{capsu QD Take [address] OIC 9-10 le} capsule by Song ACID/EPA 12:55: mouth Medical (FISH OIL 32 daily. Center ORAL) Missing or 2020-0 Yes 1{tbl} QD [address] Non-Formula 9-10 daily. Song ry 12:55: Medical Medication 32 Center gabapentin 2020-0 Yes 100mg Q.[id number] Take [address] [facility] (NEURONTIN) 9-10 [id number] mg by Kristina orellanaes 100 MG 12:55: [...] St hydroCHLORO 9-10 09-10 tablet by Samia toths thiazide 06:18: 00:00 mouth Medical (PRINZIDE,Z 30 [...] nter ESTORETIC) breakfast. 20-12.5 mg per tablet aspirin [...] Health 10 MG 00:00: tablet 00 cloBAZam 2019-0 2021- No 10mg Q12H Take 10 mg UT (Onfi) 2.5 9-10 06- by mouth Heal th mg/mL 00:00: 00:00 every 12 suspension 00 :00 (twelve) hours. atorvastati 2019-0 2021- No UT n (Lipitor) 9- 06- Health 10 MG 00:00: 00:00 tablet 00 :00 metoprolol 2020-0 2021- No 25mg Q12H Take 25 mg UT tartrate - 06- by mouth Health (Lopressor) 00:00: 00:00 every 12 25 MG 00 :00 (twelve) tablet hours. divalproex 2020-0 2021- No 500mg Take 500 U T (Depakote 9- 06- mg by Health ER) 250 MG 00:00: 00:00 mouth. 24 hr 00 :00 tablet atorvastati 2020-0 2020- No 10mg QD Take [address] [facility] [address] n (LIPITOR) 9- 12-09 tablet (10 L ukes 10 MG 00:00: 23:59 mg total) Medica l tablet 00 :00 by mouth Center nightly for 90 days. atorvastati 2019-0 2020- No 10mg QD Take [address] [facility] [address] n (LIPITOR) 9- 12-09 tablet (10 L ukes 10 MG [...] 00 :00 every 8 (eight) hours. cloBAZam 2019-0 Yes 1{tbl} Take 1 UT [...] MG tablet 00:00: mouth. 00 cloBAZam 2020-0 2022- No 1{tbl} Take 1 UT (Onfi) 10 3-02 06-01 tablet by Heal th MG tablet 00:00: 00:00 mouth. 00 :00 methylpheni 2020-0 Yes 20mg Take 20 mg [...] Yes 20mg Take 20 mg UT date 05-21 by mouth. Health (Ritalin) 00:00: 20 MG 00 tablet methylpheni 2020-0 Yes 20mg Take 20 mg UT date 05-21 by mouth. Health (Ritalin) 00:00: 20 MG 00 tablet methylpheni 2020-0 Yes 20mg Take 20 mg UT date 05-21 by mouth. Health (Ritalin) 00:00: 20 MG 00 tablet methylpheni 2020-0 Yes 20mg Take 20 mg UT date 05-21 by mouth. Health (Ritalin) 00:00: 20 MG 00 tablet methylpheni 2020-0 2022- No 20mg Take 20 mg UT date 05-21 by mouth. Health (Ritalin) 00:00: 00:00 20 [...] 00:00: mouth. 24 hr 00 tablet divalproex 2019- Yes 500mg Take 500 UT (Depakote 6-21 mg by Health ER) 500 MG 00:00: mouth. 24 hr 00 tablet divalproex 2021- No 500mg Take 500 U T (Depakote [...] days, # 30 tab, 0 Refill(s), Pharmacy: [place] [id number] Famotidine Yes 20 mg = 1 Me moria 20 MG Oral 5-07 tab, PO, l Tablet 14:26: BID, # 60 Scottie n [Pepcid] 00 tab, 0 Refill(s), Pharmacy: [place] [id number] Speech Yes See Memoria Therapy 08-28 Instructio l 19:50: ns, MISC, [place] ONCALL, Evaluate and Treat 3 times per week for 4 weeks, # 12 bag, 0 Refill(s) Ritalin No Notes: Memoria 08-28 (Same l 15:15: as:Ritalin Duy 00 Lisinopril No Notes: Memor ia 08-28 (Same as: l 14:00: Prinivil, Duy 00 [...] Solution Saline No Notes: Memoria Flush 0.9% - (Same as: l 02:00: BD [place] 00 Posiflush) divalproex No Notes: Memor ia sodium 500 -03 (Same as: l mg oral 02:00: Depakote [...] ne 5-02 Give with l 23:00: food. [place] (Same As: Decadron) 24 HR No Notes: Memoria Metoprolol 5-02 (Same as: l Tartrate 25 22:00: Toprol XL) Duy MG Extended 00 Do Not Release Crush Tablet [Toprol] Famotidine No Notes: Memor ia 20 MG Oral 5-02 (Same as: l Tablet 22:00: Pepcid) sennosides, No Notes: Dannie pat ASSISTED 5-02 (Same as: l 22:00: Senokot) Docusate No Notes: Memoria 5-02 (Same as: l 22:00: Colace) [place] 00 (Do Not Crush) Onfi No 5 mg, Memoria 5-02 Route: PO, l 22:00: Drug form: Duy 00 TAB, BID, Dosing Weight 73.182, kg, Start date: 08/27/18 17:00:00 CDT, Duration: 30 day, Stop date: 09/26/18 9:00:00 CDT Acetaminoph Yes 1 tab, PO, Memoria en 325 MG / 08-27 Q6H, PRN l Hydrocodone 21:54: for pain, H ermann Bitartrate 00 X 14 day, 10 MG Oral # 60 tab, Tablet 0 [[place] Refill(s) 10/325] Docusate Yes 50 mg = 1 Dannie pat Sodium 50 -02 cap, PO, l MG Oral 21:54: BID, # 20 Brianna nn Capsule 00 cap, 0 [Colace] Refill(s) Ondansetron Yes 4 mg = 1 Me moria 4 MG Oral 08-27 tab, PO, l Tablet 21:54: BID, PRN [place] [Zofran] 00 Nausea & Vomiting, # 30 tab, 0 Refill(s) tramadol Yes 50 mg = 1 Dannie pat hydrochlori -02 tab, PO, l de 50 MG 21:54: Q6H, PRN Brianna nn Oral Tablet 00 Pain, X 10 day, # 40 tab, 0 Refill(s) Promethazin Yes 12.5 mg = M emoria e 08-27 1 tab, PO, l Hydrochlori 21:54: Q6H, PRN rmann de 12.5 MG 00 Nausea & Oral Tablet Vomiting, [Phenergan] # 28 tab, 0 Refill(s) acetaminoph No Route: IV, Memoria en (ANES) 08-27 Drug form: l 20:36: INJ, ONCE, Stop date: 08/27/18 15:36:00 CDT Saline No Notes: Memoria Flush 0.9% 08-27 (Same as: l 20:23: BD [place] 00 Posiflush) Ondansetron No Notes: Dannie pat 08-27 (Same as: l 20:23: Zofran) MEDICATION WASTE [...] Notes: Memoria 5-02 Chlorasept l 20:23: ic [place] (Same as: Chlorasept ic, Sore Throat [place]) WASTE: F/P - Black; E - Municipal Trash Bin Acetaminoph No Notes: Do M emoria en 325 MG / 5- not exceed l Hydrocodone 20:23: 4gm/day of Duy Bitartrate acetaminop 10 MG Oral hen. (Same Tablet as: [place] [[place] 325/10) 10/325] Hydralazine No Notes: Dannie pat 5-02 (Same as: l 20:23: Apresoline ) Push over 5 minutes Dilaudid No Notes: Memoria 5-02 Same as l 20:23: Dilaudid Benadryl No Notes: Memoria 5-02 (Same as: l 20:23: Benadryl) Melatonin 3 No Notes: Dannie pat MG Extended 08-27 (Same as: l Release 20:23: Melatonin) Herm shama Tablet Tylenol No Notes: Do Memor ia 5-02 not exceed l 20:23: 4 gm/day. Duy (Same as: Tylenol) Robaxin No Notes: Memoria 5-02 (Same l 20:23: as:Robaxin ) Bisacodyl No Notes: Memori a 5-02 (Same As: l 20:23: Dulcolax, [place] Bisco-Lax) Reglan No Notes: Memoria 5-02 (Same as: l 20:23: Reglan) Phenergan No Notes: Do Mem oria 5-02 not give l 20:23: IV push. Duy (Same as: Phenergan) Sodium No 1,000 mL, Memori a Chloride 08-27 Rate: 100 l 0.9% IV 20:23: ml/hr, [place] 1,000 mL 00 Infuse over: 10 hr, Route: IV, Dosing Weight 73.182 kg, Total Volume: 1,000, Start date: 08/27/18 15:23:00 CDT, Duration: 30 day, Stop date: 09/26/18 15:22:00 CDT, 1.84, m2 Flomax 2018- No Notes: Memoria 5-02 (Same As: l 20:22: Flomax) "Do Not Crush" sugammadex No Notes: Memor ia - (Same as: l 19:49: [place]) ondansetron No Route: IV, Memoria (ANES) 5- Drug form: l 19:45: INJ, ONCE, Stop date: 08/27/18 14:45:00 CDT phenylephri No Route: IV, Memoria ne (ANES) - Drug form: l 100 18:36: INJ, Start [place] microgram 00 date: 08/27/18 13:36:00 CDT, Stop date: 08/27/18 14:36:00 CDT fentaNYL No Route: IV, Mem oria (ANES) 5- Drug form: l 18:18: INJ, ONCE, Stop date: 08/27/18 13:18:00 CDT rocuronium No Route: IV, M emoria (ANES) 5- Drug form: l 18:18: INJ, ONCE, Stop date: 08/27/18 13:18:00 CDT propofol No Route: IV, Mem oria (ANES) 5-02 Drug form: l 18:18: INJ, ONCE, [place] Stop date: 08/27/18 13:18:00 CDT lidocaine 2018- No Route: IV, Me moria (ANES) 5- Drug form: l 18:18: INJ, ONCE, [place] 00 Stop date: 08/27/18 13:18:00 CDT Ondansetron No Notes: Dannie pat - (Same as: l 18:01: Zofran) MEDICATION WASTE Product Size: 4 mg Product Wasted: ___ mg Fentanyl No Notes: Memoria - (Same as: l 18:01: Sublimaze) Preservati ve free. Flumazenil No Notes: Memor ia 08-27 (Same as: l 18:01: Romazicon) Naloxone No Notes: Memoria 08-27 Same as l 18:01: Narcan Oxycodone No Notes: Memori a 08-27 (Same as: l 18:01: Roxicodone ) Hydralazine No Notes: Dannie pat 08-27 (Same as: l 18:01: Apresoline [...] form: l 100 mg 16:53: INJ, Start Brianna date: 08/27/18 11:53:00 CDT, Stop date: 08/27/18 [...] 08-27 Total l 0.9% IV 16:47: Volume: [place] (ANES) 500 00 500, Start mL date: 08/27/18 11:47:00 CDT, Stop date: 08/27/18 12:47:00 CDT Lactated No Route: IV, Mem oria Ringers - Total l Injection 16:23: Volume: Brianna nn [...] stop, # 77 tab, 0 Refill(s), Pharmacy: [place] [id number] Famotidine Yes 20 mg = 1 Me moria 20 MG Oral 3-28 tab, PO, l Tablet 21:59: BID, # 60 Scottie n [Pepcid] 00 tab, 0 Refill(s), Pharmacy: [facility] 256 Methylpheni Yes 20 mg = [...] tab, PO, l tablet 21:31: Daily, 0 [place] 00 Refill(s) lisinopril Yes [facility] 20 mg 6-20 ity of tablet 00:00: [place] [address] [facility] lisinopril 2018-0 Yes [facility] 20 mg 6-20 ity of tablet 00:00: [place] [address] [facility] lisinopril 2018-0 Yes [facility] 20 mg 6-20 ity of tablet 00:00: [place] [address] [facility] lisinopril 2018-0 Yes [facility] 20 mg 6-20 ity of tablet 00:00: [place] [address] [facility] lisinopril 2018-0 Yes [facility] 20 mg 6-20 ity of tablet 00:00: [place] [address] [facility] lisinopril 2018-0 Yes [facility] 20 mg 6-20 ity of tablet 00:00: [place] [address] [facility] lisinopril 2018-0 Yes [facility] 20 mg 6-20 ity of tablet 00:00: [place] [address] [facility] lisinopril 2018-0 Yes [facility] 20 mg 6-20 ity of tablet 00:00: [place] [address] [facility] lisinopril 2018-0 Yes [facility] 20 mg 6-20 ity of tablet 00:00: [place] [address] [facility] lisinopril 2018-0 Yes [facility] 20 mg 6-20 ity of tablet 00:00: [place] [address] [facility] lisinopril 2018-0 Yes [facility] 20 mg 6-20 ity of tablet 00:00: [place] [address] [facility] lisinopril 2018-0 Yes [facility] 20 mg 6-20 ity of tablet 00:00: [place] [address] [facility] lisinopril 2018-0 Yes [facility] 20 mg 6-20 ity of tablet 00:00: [place] [address] [facility] lisinopril 2018-0 Yes [facility] 20 mg 6-20 ity of tablet 00:00: [place] [address] [facility] lisinopril 2018-0 Yes [facility] 20 mg 6-20 ity of tablet 00:00: [place] [address] [facility] lisinopril 2018-0 Yes [facility] 20 mg 6-20 ity of tablet 00:00: [place] [address] [facility] lisinopril 2018-0 Yes [facility] 20 mg 6-20 ity of tablet 00:00: [place] [address] [facility] lisinopril 2018-0 Yes [facility] 20 mg 6-20 ity of tablet 00:00: [place] [address] [facility] lisinopril 2018-0 Yes [facility] 20 mg 6-20 ity of tablet 00:00: [place] [address] [facility] lisinopril 2018-0 Yes [facility] 20 mg 6-20 ity of tablet 00:00: [place] [address] [facility] lisinopril 2018-0 Yes [facility] 20 mg 6-20 ity of tablet 00:00: [place] [facility] lisinopril 2018-0 Yes [facility] 20 mg 6-20 ity of tablet 00:00: [place] [facility] lisinopril 2018-0 Yes [facility] 20 mg 6-20 ity of tablet 00:00: [place] [address] [facility] lisinopril 2018-0 Yes [facility] 20 mg 6-20 ity of tablet 00:00: [place] [facility] lisinopril 2018-0 Yes [facility] 20 mg 6-20 ity of tablet 00:00: [place] [address] [facility] lisinopril 2018-0 Yes [facility] 20 mg 6-20 ity of tablet 00:00: [address] [facility] lisinopril 2018-0 Yes [facility] 20 mg 6-20 ity of tablet 00:00: [address] lisinopril 2018-0 Yes [facility] 20 mg 6-20 ity of tablet 00:00: [address] [facility] lisinopril 2018-0 Yes [facility] 20 mg 6-20 ity of tablet 00:00: [address] [facility] lisinopril 2018-0 Yes [facility] 20 mg 6-20 ity of tablet 00:00: [address] [facility] lisinopril 2018-0 Yes [facility] 20 mg 6-20 ity of tablet 00:00: [address] [facility] lisinopril 2018-0 Yes [facility] 20 mg 6-20 ity of tablet 00:00: [address] [facility] lisinopril 2018-0 Yes [facility] 20 mg 6-20 ity of tablet 00:00: [place] [address] [facility] lisinopril 2018-0 Yes [facility] 20 mg 6-20 ity of tablet 00:00: [place] [address] [facility] lisinopril 2018-0 Yes [facility] 20 mg 6-20 ity of tablet 00:00: [place] [address] [facility] lisinopril 2018-0 Yes [facility] 20 mg 6-20 ity of tablet 00:00: [place] [address] [facility] lisinopril 2018-0 Yes [facility] 20 mg 6-20 ity of tablet 00:00: [place] [address] [facility] lisinopril 2018-0 Yes [facility] 20 mg 6-20 ity of tablet 00:00: [place] [address] [facility] Immunizations Ordered Filled Date Status Comments Source Immunization Name Immunization Name SARS-COV-2 COVID-19 2020-08-16 Completed Unive rsity of UNSPECIFIED VACCINE 00:00:00 [facility] [facility] SARS-COV-2 COVID-19 2020-08-16 Completed Unive rsity of UNSPECIFIED VACCINE 00:00:00 [facility] SARS-COV-2 COVID-19 2020-08-16 Completed [facility] of UNSPECIFIED VACCINE 00:00:00 [facility] SARS-COV-2 COVID-19 2020-08-16 Completed [facility] of UNSPECIFIED VACCINE 00:00:00 [facility] SARS-COV-2 COVID-19 2020-08-16 Completed [facility] rs[facility] of UNSPECIFIED VACCINE 00:00:00 [facility] SARS-COV-2 COVID-19 2020-08-16 Completed [facility] of UNSPECIFIED VACCINE 00:00:00 [facility] SARS-COV-2 COVID-19 2020-08-16 Completed [facility] rs[facility] of UNSPECIFIED VACCINE 00:00:00 [facility] SARS-COV-2 COVID-19 2020-08-16 Completed [facility] of UNSPECIFIED VACCINE 00:00:00 [facility] SARS-COV-2 COVID-19 2020-08-16 Completed [facility] of UNSPECIFIED VACCINE 00:00:00 [facility] SARS-COV-2 COVID-19 2020-08-16 Completed [facility] rs[facility] of UNSPECIFIED VACCINE 00:00:00 [facility] SARS-COV-2 COVID-19 2020-08-16 Completed [facility] rsity of UNSPECIFIED VACCINE 00:00:00 [facility] SARS-COV-2 COVID-19 2020-08-16 Completed [facility] of UNSPECIFIED VACCINE 00:00:00 [facility] SARS-COV-2 COVID-19 2020-08-16 Completed [facility] of UNSPECIFIED VACCINE 00:00:00 [facility] SARS-COV-2 COVID-19 2020-08-16 Completed [facility] of UNSPECIFIED VACCINE 00:00:00 [facility] SARS-COV-2 COVID-19 2020-08-16 Completed [facility] of UNSPECIFIED VACCINE 00:00:00 [facility] SARS-COV-2 COVID-19 2020-08-16 Completed [facility] of UNSPECIFIED VACCINE 00:00:00 [facility] SARS-COV-2 COVID-19 2020-08-16 Completed [facility] of UNSPECIFIED VACCINE 00:00:00 [facility] SARS-COV-2 COVID-19 2020-08-16 Completed [facility] of UNSPECIFIED VACCINE 00:00:00 [facility] SARS-COV-2 COVID-19 2020-08-16 Completed [facility] of UNSPECIFIED VACCINE 00:00:00 [facility] SARS-COV-2 COVID-19 2020-08-16 Completed [facility] of UNSPECIFIED VACCINE 00:00:00 [facility] SARS-COV-2 COVID-19 2020-08-16 Completed [facility] of UNSPECIFIED VACCINE 00:00:00 [facility] SARS-COV-2 COVID-19 2020-08-16 Completed [facility] of UNSPECIFIED VACCINE 00:00:00 [facility] SARS-COV-2 COVID-19 2020-08-16 Completed [facility] of UNSPECIFIED VACCINE 00:00:00 [facility] SARS-COV-2 COVID-19 2020-08-16 Completed [facility] of UNSPECIFIED VACCINE 00:00:00 [facility] SARS-COV-2 COVID-19 2020-08-16 Completed [facility] of UNSPECIFIED VACCINE 00:00:00 [facility] SARS-COV-2 COVID-19 2020-08-16 Completed [facility] of UNSPECIFIED VACCINE 00:00:00 [facility] SARS-COV-2 COVID-19 2020-08-16 Completed [facility] of UNSPECIFIED VACCINE 00:00:00 [facility] SARS-COV-2 COVID-19 2020-08-16 Completed [facility] of UNSPECIFIED VACCINE 00:00:00 [facility] SARS-COV-2 COVID-19 2020-08-16 Completed [facility] of UNSPECIFIED VACCINE 00:00:00 [facility] SARS-COV-2 COVID-19 2020-08-16 Completed [facility] of UNSPECIFIED VACCINE 00:00:00 [facility] SARS-COV-2 COVID-19 2020-08-16 Completed [facility] of UNSPECIFIED VACCINE 00:00:00 [facility] SARS-COV-2 COVID-19 2020-08-16 Completed [facility] of UNSPECIFIED VACCINE 00:00:00 [facility] COVID-19 Moderna 12 2020-07-22 [facility] Vacc[facility]:00:00 ([employer]) COVID-19 Moderna 2020-07-22 [facility]pleted [facility] Vaccination 00:00:00 ([employer]) COVID-19 Moderna 2020-07-22 Completed [facility] Vaccination 00:00:00 ([employer]) COVID-19 Moderna 2020-07-22 Completed [facility] Vaccination 00:00:00 ([employer]) COVID-19 Moderna 2020-07-22 Completed [facility] Vaccination 00:00:00 ([employer]) COVID-19 Moderna 2020-07-22 [facility] 00:00:00 COVID-19 Moderna 2020-07-22 [facility] 00:00:00 COVID-19 Moderna 2020-07-22 [facility] 00:00:00 COVID-19 Moderna 2020-07-22 [facility] 00:00:00 COVID-19 Moderna 2020-07-22 [facility]red) 00:00:00 COVID-19 Moderna 2020-07-22 [facility]red[facility] 00:00:00 COVID-19 Moderna 2020-07-22 [facility] 00:00:00 COVID-19 Moderna 2020-07-22 [facility]red[facility] 00:00:00 COVID-19 Moderna 2020-07-22 [facility]) 00:00:00 COVID-19 Moderna 2020-07-22 Completed [facility] Vacc[facility] 00:00:00 COVID-19 Moderna 2020-07-22 Completed [facility] Vacc[facility] 00:00:00 COVID-19 Moderna 2020-07-22 Completed [facility] Vacc[facility] 00:00:00 COVID-19 Moderna 2020-07-22 [facility]pleted [facility] [...] [facility] Vacc[facility] 00:00:00 ([employer]) COVID-19 Moderna 12 2020-07-22 [facility]pleted [facility] Vacc[facility] 00:00:00 ([employer]) COVID-19 Moderna 12 2020-07-22 Completed [facility] Vaccination 00:00:00 ([employer]) COVID-19 Moderna 12 2020-07-22 Completed [facility] Vaccination 00:00:00 ([employer]) SARS-COV-2 COVID-19 2020-07-18 Completed [facility] of UNSPECIFIED VACCINE 00:00:00 [facility] SARS-COV-2 COVID-19 2020-07-18 Completed [facility] of UNSPECIFIED VACCINE 00:00:00 [facility] SARS-COV-2 COVID-19 2020-07-18 Completed [facility] of UNSPECIFIED VACCINE 00:00:00 [facility] SARS-COV-2 COVID-19 2020-07-18 Completed [facility] of UNSPECIFIED VACCINE 00:00:00 [facility] SARS-COV-2 COVID-19 2020-07-18 Completed [facility] of UNSPECIFIED VACCINE 00:00:00 [facility] SARS-COV-2 COVID-19 2020-07-18 Completed [facility] of UNSPECIFIED VACCINE 00:00:00 [facility] SARS-COV-2 COVID-19 2020-07-18 Completed [facility] of UNSPECIFIED VACCINE 00:00:00 [facility] SARS-COV-2 COVID-19 2020-07-18 Completed [facility] of UNSPECIFIED VACCINE 00:00:00 [facility] SARS-COV-2 COVID-19 2020-07-18 Completed [facility] of UNSPECIFIED VACCINE 00:00:00 [facility] SARS-COV-2 COVID-19 2020-07-18 Completed [facility] of UNSPECIFIED VACCINE 00:00:00 [facility] SARS-COV-2 COVID-19 2020-07-18 Completed [facility] of UNSPECIFIED VACCINE 00:00:00 [facility] SARS-COV-2 COVID-19 2020-07-18 Completed [facility] of UNSPECIFIED VACCINE 00:00:00 [facility] SARS-COV-2 COVID-19 2020-07-18 Completed [facility] of UNSPECIFIED VACCINE 00:00:00 [facility] SARS-COV-2 COVID-19 2020-07-18 Completed [facility] of UNSPECIFIED VACCINE 00:00:00 [facility] SARS-COV-2 COVID-19 2020-07-18 Completed [facility] of UNSPECIFIED VACCINE 00:00:00 [facility] SARS-COV-2 COVID-19 2020-07-18 Completed [facility] of UNSPECIFIED VACCINE 00:00:00 [facility] SARS-COV-2 COVID-19 2020-07-18 Completed [facility] of UNSPECIFIED VACCINE 00:00:00 [facility] SARS-COV-2 COVID-19 2020-07-18 Completed [facility] of UNSPECIFIED VACCINE 00:00:00 [facility] SARS-COV-2 COVID-19 2020-07-18 Completed [facility] of UNSPECIFIED VACCINE 00:00:00 [facility] SARS-COV-2 COVID-19 2020-07-18 Completed [facility] of UNSPECIFIED VACCINE 00:00:00 [facility] SARS-COV-2 COVID-19 2020-07-18 Completed [facility] of UNSPECIFIED VACCINE 00:00:00 [facility] SARS-COV-2 COVID-19 2020-07-18 Completed [facility] of UNSPECIFIED VACCINE 00:00:00 [facility] SARS-COV-2 COVID-19 2020-07-18 Completed [facility] of UNSPECIFIED VACCINE 00:00:00 [facility] SARS-COV-2 COVID-19 2020-07-18 Completed [facility] of UNSPECIFIED VACCINE 00:00:00 [facility] SARS-COV-2 COVID-19 2020-07-18 Completed [facility] of UNSPECIFIED VACCINE 00:00:00 [facility] SARS-COV-2 COVID-19 2020-07-18 Completed [facility] of UNSPECIFIED VACCINE 00:00:00 [facility] SARS-COV-2 COVID-19 2020-07-18 Completed [facility] of UNSPECIFIED VACCINE 00:00:00 [facility] SARS-COV-2 COVID-19 2020-07-18 Completed [facility] of UNSPECIFIED VACCINE 00:00:00 [facility] SARS-COV-2 COVID-19 2020-07-18 Completed [facility] of UNSPECIFIED VACCINE 00:00:00 [facility] SARS-COV-2 COVID-19 2020-07-18 Completed [facility] of UNSPECIFIED VACCINE 00:00:00 [facility] SARS-COV-2 COVID-19 2020-07-18 Completed [facility] of UNSPECIFIED VACCINE 00:00:00 [facility] SARS-COV-2 COVID-19 2020-07-18 Completed [facility] of UNSPECIFIED VACCINE 00:00:00 [facility] COVID-19 Moderna 12 2020-06-24 [facility]pleted [facility] Vacc[facility]:00:00 ([employer]) COVID-19 Moderna 12 2020-06-24 Completed [facility] Vacc[facility] 00:00:00 ([employer]) COVID-19 Moderna 12 2020-06-24 Completed [facility] Vaccination 00:00:00 ([employer]) COVID-19 Moderna 12 2020-06-24 Completed [facility] Vaccination 00:00:00 ([employer]) COVID-19 Moderna 12 2020-06-24 Completed [facility] Vaccination 00:00:00 ([employer]) COVID-19 Moderna 2020-06-24 [facility] 00:00:00 COVID-19 Moderna 2020-06-24 [facility]pleted [facility]red) 00:00:00 COVID-19 Moderna 2020-06-24 [facility]pleted [facility]red) 00:00:00 COVID-19 Moderna 2020-06-24 [facility]red) 00:00:00 COVID-19 Moderna 2020-06-24 Completed [facility] (red) 00:00:00 COVID-19 Moderna 2020-06-24 [facility]pleted [facility]red) 00:00:00 COVID-19 Moderna 2020-06-24 [facility]pleted [facility]red) 00:00:00 COVID-19 Moderna 2020-06-24 [facility]red) 00:00:00 COVID-19 Moderna 2020-06-24 [facility] 00:00:00 COVID-19 Moderna 18 2020-06-24 Completed [facility] [...] [facility] Vacc[facility] 00:00:00 ([employer]) COVID-19 Moderna 12 2020-06-24 Completed [facility] Vacc[facility] 00:00:00 ([employer]) COVID-19 Moderna 12 2020-06-24 Completed [facility] Vacc[facility] 00:00:00 ([employer]) COVID-19 Moderna 12 2020-06-24 Completed [facility] Vacc[facility] 00:00:00 ([employer]) Influenza Virus 2019-09-08 Completed [facility] [...] [facility] y of Vaccine [facility] IM 00:00:00 [place] [facility] Multi-dose 6+ MO Branch Influenza Virus 2019-09-08 Completed [facility] Vaccine [facility] 00:00:00 [place] [facility] Multi-dose 6+ MO [facility] TDAP 2019-06-13 Completed [facility] 00:00:00 [facility] TDAP 2019-06-13 Completed [facility] 00:00:00 [facility] TDAP 2019-06-13 Completed [facility] 00:00:00 [facility] TDAP 2019-06-13 Completed [facility] 00:00:00 [facility] TDAP 2019-06-13 Completed [facility] 00:00:00 [facility] TDAP 2019-06-13 Completed [facility] 00:00:00 [facility] TDAP 2019-06-13 Completed [facility] 00:00:00 [facility] TDAP 2019-06-13 Completed [facility] 00:00:00 [facility] TDAP 2019-06-13 Completed [facility] of 00:00:00 [facility] TDAP 2019-06-13 Completed [facility] 00:00:00 [facility] TDAP 2019-06-13 Completed [facility] 00:00:00 [facility] TDAP 2019-06-13 Completed [facility] 00:00:00 [facility] TDAP 2019-06-13 Completed [facility] 00:00:00 [facility] TDAP 2019-06-13 Completed [facility] 00:00:00 [facility] TDAP 2019-06-13 Completed [facility] 00:00:00 [facility] TDAP 2019-06-13 Completed [facility] 00:00:00 [facility] TDAP 2019-06-13 Completed [facility] 00:00:00 [facility] TDAP 2019-06-13 Completed [facility] 00:00:00 [facility] TDAP 2019-06-13 Completed [facility] 00:00:00 [facility] TDAP 2019-06-13 Completed [facility] 00:00:00 [facility] TDAP 2019-06-13 Completed [facility] 00:00:00 [facility] TDAP 2019-06-13 Completed [facility] 00:00:00 [facility] TDAP 2019-06-13 Completed [facility] 00:00:00 [facility] TDAP 2019-06-13 Completed [facility] 00:00:00 [facility] TDAP 2019-06-13 Completed [facility] 00:00:00 [facility] TDAP 2019-06-13 Completed [facility] of 00:00:00 [facility] TDAP 2019-06-13 Completed [facility] of 00:00:00 [facility] TDAP 2019-06-13 Completed [facility] of 00:00:00 [facility] TDAP 2019-06-13 Completed [facility] of 00:00:00 [facility] TDAP 2019-06-13 Completed [facility] of 00:00:00 [facility] TDAP 2019-06-13 Completed [facility] of 00:00:00 [facility] TDAP 2019-06-13 Completed [facility] 00:00:00 [facility] Influenza Virus 2019-02-22 Completed [facility] of [...] IM, Preserv and ABX Branc h Free 1864 YRS Influenza Virus 2019-02-22 Completed [facility] Vaccine Recomb Quad 00:00:00 [place] [facility], Preserv and ABX Branc h Free 1864 YRS Influenza Virus 2019-02-22 Completed [facility] Vaccine Recomb Quad 00:00:00 [facility], Preserv and ABX Branc h Free 1864 YRS Influenza Virus 2019-02-22 Completed [facility] of Vaccine Recomb Quad 00:00:00 [facility], Preserv and ABX Branc h Free 1864 YRS Influenza Virus 2019-02-22 Completed [facility] Vaccine Recomb Quad 00:00:00 [facility], Preserv and ABX Branc h Free 1864 YRS Influenza Virus 2019-02-22 Completed [facility] of Vaccine Recomb Quad 00:00:00 [facility], Preserv and ABX Branc h Free 1864 YRS Influenza Virus 2019-02-22 Completed [facility] of Vaccine Recomb Quad 00:00:00 [facility], Preserv and ABX Branc h Free 1864 YRS Influenza Virus Unknown Completed [facility] of Vaccine Quad IM [place] [facility] Multi-dose 6+ MO Branch Influenza Virus Unknown Completed [facility] Vaccine Recomb Quad [place] [facility], Preserv and ABX Branc h Free 1864 YRS SARS-COV-2 COVID-19 Unknown Completed Unive rsity of UNSPECIFIED VACCINE [facility] SARS-COV-2 COVID-19 Unknown Completed Unive rsity of UNSPECIFIED VACCINE [facility] TDAP Unknown Completed [facility] Influenza Virus Unknown Completed [facility] Vaccine Quad IM [place] [facility] Multi-dose 6+ MO Branch Influenza Virus Unknown Completed [facility] of Vaccine Recomb Quad [place] [facility], Preserv and ABX Branc h Free 1864 YRS SARS-COV-2 COVID-19 Unknown Completed Unive rsity of UNSPECIFIED VACCINE [facility] SARS-COV-2 COVID-19 Unknown Completed Unive rsity of UNSPECIFIED VACCINE [facility] TDAP Unknown Completed [facility] Influenza Virus Unknown Completed [facility] Vaccine Quad IM [place] [facility] Multi-dose 6+ MO Branch Influenza Virus Unknown Completed [facility] of Vaccine Recomb Quad [place] [facility], Preserv and ABX Branc h Free 18-64 YRS SARS-COV-2 COVID-19 Unknown Completed Unive rsity of UNSPECIFIED VACCINE [facility] SARS-COV-2 COVID-19 Unknown Completed Unive rsity of UNSPECIFIED VACCINE [facility] TDAP Unknown Completed [facility] Influenza Virus Unknown Completed [facility] of Vaccine Quad IM [place] [facility] Multi-dose 6+ MO Branch Influenza Virus Unknown Completed [facility] of Vaccine Recomb Quad [facility] [place] [facility], Preserv and ABX Branc h Free 18-64 YRS SARS-COV-2 COVID-19 Unknown Completed Unive rsity of UNSPECIFIED VACCINE [facility] SARS-COV-2 COVID-19 Unknown Completed Unive rsity of UNSPECIFIED VACCINE [facility] TDAP Unknown Completed [facility] Influenza Virus Unknown Completed [facility] of Vaccine Quad , [place] [facility] Preserv and ABX Branch Free 6 MO-64 YRS (FLUCELVAX) Influenza Virus Unknown Completed [facility] of Vaccine Quad IM [place] [facility] Multi-dose 6+ MO Branch Influenza Virus Unknown Completed [facility] y of Vaccine Recomb Quad [facility] IM, Preserv and ABX Branc h Free 18-64 YRS SARS-COV-2 COVID-19 Unknown Completed Unive rsity of UNSPECIFIED VACCINE [facility] SARS-COV-2 COVID-19 Unknown Completed Unive rsity of UNSPECIFIED VACCINE [facility] TDAP Unknown Completed [facility] Influenza Virus Unknown Completed [facility] of Vaccine Quad IM, [place] [facility] Preserv and ABX Branch Free 6 MO-64 YRS (FLUCELVAX) Influenza Virus Unknown Completed [facility] of Vaccine Quad IM [place] [facility] Multi-dose 6+ MO Branch Influenza Virus Unknown Completed [facility] of Vaccine Recomb Quad [place] [facility], Preserv and ABX Branc h Free 18-64 YRS SARS-COV-2 COVID-19 Unknown Completed Unive rsity of UNSPECIFIED VACCINE [facility] SARS-COV-2 COVID-19 Unknown Completed Unive rsity of UNSPECIFIED VACCINE [facility] TDAP Unknown Completed [facility] Influenza Virus Unknown Completed [facility] of Vaccine Quad IM, [place] [facility] Preserv and ABX Branch Free 6 MO-64 YRS (FLUCELVAX) COVID-19 Moderna Unknown Completed [facility]) COVID-19 Moderna Unknown Completed [facility]) [id number] Unknown Completed [facility] [place] RNA-1273vaxMODERNA< sup>1</sup> [id number] Unknown Completed [facility] [place] RNA-1273vaxMODERNA< sup>2</sup> [id number] Unknown Completed [facility] [place] RNA-1273vaxMODERNA [id number] Unknown Completed [facility] [place] RNA-1273vaxMODERNA [id number] Unknown Completed [facility] [place] RNA-1273vaxMODERNA Vital Signs Vital Name Observation Time Observation Value Comments Source Systolic blood 2023-02-18 13:18:00 127 mm[Hg] Univer sity of pressure [facility] Diastolic blood 2023-02-18 13:18:00 64 mm[Hg] Unive rsity of pressure [facility] Heart rate 2023-02-18 13:18:00 81 /min [facility] Respiratory rate 2023-02-18 13[facility]18:00 18 [facility] 2023-02-18 13:18:00 162.6 cm [facility] Body weight 2023-02-18 13:18:00 60.328 kg [facility] BMI 2023-02-18 13:18:00 22.83 kg/m2 [facility] Oxygen saturation in 2023-02-18 13:18:00 98 /min [facility] Arterial blood by [facility] Pulse oximetry Branch Systolic blood 2023-02-12 18:27:00 113 mm[Hg] [facility] Diastolic blood 2023-02-12 18:27:00 75 mm[Hg] [facility] Heart rate 2023-02-12 18:27:00 79 [facility]min [facility] Systolic blood 2023-01-01 18:57:00 113 mm[Hg] [facility] Diastolic blood 2023-01-01 18:57:00 74 mm[Hg] [facility] Heart rate 2023-01-01 18:57:00 76 /min [facility] temperature 2023-01-01 18:57:00 [facility].17 [facility] height 2023-01-01 18:57:00 162.6 cm [facility] weight 2023-01-01 18:57:00 59.875 [facility] 2023-01-01 18:57:00 22.66 [facility] 2022-12-23 18:14:00 138 mm[Hg] Univer sity of [facility] Diastolic blood 2022-12-23 18:14:00 85 mm[Hg] Unive rsity [facility] Heart rate 2022-12-23 18:14:00 80 /min [facility] Respiratory rate 2022-12-23 18[facility]14:00 18 /[facility] height 2022-12-23 18:14:00 162.6 cm [facility] Body weight 2022-12-23 18:14:00 60.328 kg [facility] BMI 2022-12-23 18:14:00 22.83 kg/m2 [facility] Oxygen saturation in 2022-12-23 18:14:00 98 /min [facility] Arterial blood by [facility] Pulse oximetry Branch Systolic blood 2022-11-20 18:26:00 99 mm[Hg] [facility] Diastolic blood 2022-11-20 18:26:00 64 mm[Hg] [facility] Body temperature 2022-11-20 18:26:00 [facility].39 [facility] Body height 2022-11-20 18:26:00 162.6 cm [facility] Systolic blood 2022-10-30 20:17:00 105 mm[Hg] [facility] Diastolic blood 2022-10-30 20:17:00 70 mm[Hg] [facility] Heart rate 2022-10-30 20:17:00 78 /min [facility] Systolic blood 2022-10-16 18:33:00 113 mm[Hg] [facility] Diastolic blood 2022-10-16 18:33:00 71 mm[Hg] [facility] Heart rate 2022-10-16 18:33:00 81 /min [facility] Systolic blood 2022-10-02 18:22:00 116 mm[Hg] [facility] Diastolic blood 2022-10-02 18:22:00 75 mm[Hg] [facility] Heart rate 2022-10-02 18:22:00 77 /min [facility] Body temperature 2022-10-02 18:22:00 [facility].72 [facility] Systolic blood 2022-09-18 19:12:00 102 mm[Hg] [facility] Diastolic blood 2022-09-18 19:12:00 65 mm[Hg] [facility] Heart rate 2022-09-18 19:12:00 78 /min [facility] Body temperature 2022-09-18 19:12:00 [facility].61 [facility] Body height 2022-09-18 19:12:00 162.6 cm [facility] Body weight 2022-09-18 19:12:00 58.968 [facility] BMI 2022-09-18 19:12:00 22.31 kg[facility]m2 [facility] Systolic blood 2022-08-26 20:13:00 112 mm[Hg] [facility] Diastolic blood 2022-08-26 20:13:00 72 mm[Hg] [facility] Heart rate 2022-08-26 20:13:00 84 [facility] temperature 2022-08-26 20:13:00 [facility]11 [facility] height 2022-08-26 20:13:00 162.6 cm [facility] weight 2022-08-26 20:13:00 58[facility]968 [facility] BMI 2022-08-26 20:13:00 22.31 kg[facility]m2 [facility] Systolic blood 2022-08-14 18:16:00 104 mm[Hg] [facility] Diastolic blood 2022-08-14 18:16:00 69 mm[Hg] [facility] Heart rate 2022-08-14 18:16:00 72 /min [facility] temperature 2022-08-14 18:16:00 [facility].61 [facility] Body height 2022-08-14 18:16:00 [facility].6 [facility] Systolic blood 2022-07-31 19:47:00 129 mm[Hg] [facility] Diastolic blood 2022-07-31 19:47:00 76 mm[Hg] [facility] Heart rate 2022-07-31 19:47:00 93 /min [facility] height 2022-07-31 19:47:00 [facility].6 [facility] Body weight 2022-07-31 19:47:00 56[facility]246 [facility] BMI 2022-07-31 19:47:00 21.28 kg[facility]m2 [facility] Systolic blood 2022-04-12 16:01:00 121 mm[Hg] [facility] Diastolic blood 2022-04-12 16:01:00 70 [facility]Hg[facility]-12 16:01:00 72 /min [facility] Systolic blood 2022-04-03 19:25:00 131 mm[Hg] [facility] [...] blood 2022-02-18 16:24:00 110 mm[Hg] [facility] Diastolic blood 2022-02-18 16:24:00 72 mm[facility]Hg[facility]22-02-18 [facility]24[facility]00 [facility]22-[facility]-18 16:24:00 57.335 kg [facility] BMI 2022-02-18 16:24:00 21.70 kg/m2 [facility] Oxygen saturation in 2022-02-18 16:24:00 99 /min [facility] blood by [facility] Pulse oximetry Branch Systolic blood 2022-02-08 15:13:00 114 mm[Hg] [facility] Diastolic blood 2022-02-08 15:13:00 72 mm[Hg] [facility] Heart rate 2022-02-08 15:13:00 76 /min [facility] 2022-02-08 15:13:00 [facility].67 [facility] height 2022-02-08 15:13:00 162.6 cm [facility] Body weight 2022-02-08 15:13:00 58[facility]968 [facility] BMI 2022-02-08 15:13:00 22.31 kg[facility]m2 [facility] Sy[facility]olic blood 2021-12-26 18:11:00 114 mm[Hg] [facility] Diastolic blood 2021-12-26 18:11:00 74 mm[Hg] [facility] Heart rate 2021-12-26 18:11:00 75 /min [facility] Body temperature 2021-12-26 18:11:00 36.89 [facility] [...] Heart rate 2021-11-21 20:38:00 87 /min [facility] 2021-11-21 20:38:00 [facility].89 [facility] Systolic blood 2021-10-26 21:17:00 132 mm[Hg] Univer sity of pressure [facility] Diastolic blood 2021-10-26 21:17:00 75 mm[Hg] Unive rsity of pressure [facility] Heart rate 2021-10-26 21:17:00 99 /min [facility] Systolic blood 2021-09-26 20:46:00 117 mm[Hg] [facility] Diastolic blood 2021-09-26 20:46:00 71 mm[Hg] [facility] Heart rate 2021-09-26 20:46:00 85 /min [facility] Body temperature 2021-09-26 20:46:00 36.5 [facility] Systolic blood 2021-09-05 18:11:00 122 mm[Hg] [facility] Diastolic blood 2021-09-05 18:11:00 77 mm[Hg] [facility] Heart rate 2021-09-05 18:11:00 78 /min [facility] temperature 2021-09-05 18:11:00 36.61 [facility] Systolic blood 2021-08-29 18:08:00 153 mm[Hg] [facility] Diastolic blood 2021-08-29 18:08:00 80 mm[Hg] [facility] Heart rate 2021-08-29 18:08:00 85 /min [facility] Body temperature 2021-08-29 18:08:00 36.89 [facility] [...] 25.75 [facility] Rate 2022-10-08 12:02:47 [facility] Temperature Oral (F) 2022-10-08 12:02:24 97.6 F [facility] Systolic (mm Hg) 2022-10-08 12:01:41 [facility] Diastolic (mm Hg) 2022-10-08 12:01:41 [facility] Height 2022-10-07 01:00:00 5 [ft_i] [facility] Weight 2022-10-07 01:00:00 [facility] BMI Calculated 2022-10-07 01:00:00 [facility] Temperature Oral (F) 2022-10-04 02:10:39 97.6 F [facility] Heart Rate 2021-12-01 16:31:41 [facility] Respitory Rate 2021-12-01 16:31:41 [facility] Temperature Oral (F) 2021-12-01 16:31:29 98.9 F [facility] Systolic (mm Hg) 2021-12-01 16:31:14 [facility] Diastolic (mm Hg) 2021-12-01 16:31:14 [facility] Heart Rate 2021-12-01 16:31:14 [facility] Heart Rate 2021-12-01 12:27:16 [facility] Respitory Rate 2021-12-01 12:27:16 [facility] Systolic (mm Hg) 2021-12-01 12:27:06 [facility] Diastolic (mm Hg) 2021-12-01 12:27:06 [facility] Temperature Oral (F) 2021-12-01 12:27:06 98.2 F [facility] Respitory Rate 2021-12-01 08:22:43 [facility] Systolic (mm Hg) 2021-12-01 08:22:28 [facility] Diastolic (mm Hg) 2021-12-01 08:22:28 [facility] Temperature Oral (F) 2021-12-01 05:06:39 98.2 F [facility] Height 2021-11-30 12:17:00 162.56 cm [facility] Weight 2021-11-30 12:17:00 [facility] BMI Calculated 2021-11-30 12:17:00 [facility] Height 2021-11-28 16:33:00 162.56 cm [facility] Weight 2021-11-28 16:33:00 [facility] BMI Calculated 2021-11-28 16:33:00 [facility] Heart Rate 2021-11-14 12:52:18 [facility] Respitory Rate 2021-11-14 12:52:18 [facility] Temperature Oral (F) 2021-11-14 12:51:48 98 F [facility] Systolic (mm Hg) 2021-11-14 12:51:35 [facility] Diastolic (mm Hg) 2021-11-14 12:51:35 [facility] Heart Rate 2021-11-14 12:51:35 [facility] Heart Rate 2021-11-14 07:48:30 [facility] Respitory Rate 2021-11-14 07:48:30 [facility] Temperature Oral (F) 2021-11-14 07:48:00 97.6 F [facility] Systolic (mm Hg) 2021-11-14 07:47:39 [facility] Diastolic (mm Hg) 2021-11-14 07:47:39 [facility] Respitory Rate 2021-11-14 04:25:51 [facility] Systolic (mm Hg) 2021-11-14 04:25:38 [facility] Diastolic (mm Hg) 2021-11-14 04:25:38 [facility] Temperature Oral (F) 2021-11-14 04:25:33 98.8 F [facility] Height 2021-11-08 13:33:00 162.56 cm [facility] Weight 2021-11-08 13:33:00 [facility] BMI Calculated 2021-11-08 13:33:00 [facility] Height 2021-11-06 13:02:00 162.56 cm [facility] Weight 2021-11-06 13:02:00 [facility] BMI Calculated 2021-11-06 13:02:00 [facility] Respitory Rate 2021-08-23 22:38:00 [facility] Systolic (mm Hg) 2021-08-23 22:38:00 [facility] Diastolic (mm Hg) 2021-08-23 22:38:00 [facility] Respitory Rate 2021-08-23 21:45:00 [facility] Systolic (mm Hg) 2021-08-23 21:45:00 [facility] Diastolic (mm Hg) 2021-08-23 21:45:00 [facility] Respitory Rate 2021-08-23 21:30:00 [facility] Systolic (mm Hg) 2021-08-23 21:30:00 [facility] Diastolic (mm Hg) 2021-08-23 21:30:00 [facility] Height 2021-08-23 15:31:00 162.56 cm [facility] Weight 2021-08-23 15:31:00 [facility] BMI Calculated 2021-08-23 15:31:00 [facility] Heart Rate 2021-08-23 15:31:00 [facility] Height 2021-08-21 17:09:00 162.56 cm [facility] Weight 2021-08-21 17:09:00 [facility] BMI Calculated 2021-08-21 17:09:00 [facility] Heart Rate 2021-08-04 16:58:28 [facility] Respitory Rate 2021-08-04 16:58:28 [facility] Systolic (mm Hg) 2021-08-04 16:58:23 [facility] Diastolic (mm Hg) 2021-08-04 16:58:23 [facility] Heart Rate 2021-08-04 16:58:23 [facility] Temperature Oral (F) 2021-08-04 16:57:50 98.8 F [facility] Heart Rate 2021-08-04 14:09:08 [facility] Respitory Rate 2021-08-04 14:09:08 [facility] Systolic (mm Hg) 2021-08-04 14:09:01 [facility] Diastolic (mm Hg) 2021-08-04 14:09:01 [facility] Temperature Oral (F) 2021-08-04 14:09:00 97.6 F [facility] Respitory Rate 2021-08-04 08:18:30 [facility] Systolic (mm Hg) 2021-08-04 08:18:20 [facility] Diastolic (mm Hg) 2021-08-04 08:18:20 [facility] Temperature Oral (F) 2021-08-04 08:18:13 98 F [facility] Height 2021-08-03 03:00:00 160.02 cm [facility] Weight 2021-08-03 03:00:00 [facility] BMI Calculated 2021-08-03 03:00:00 [facility] Height 2021-08-02 14:47:00 162.56 cm [facility] Weight 2021-08-02 14:47:00 [facility] BMI Calculated 2021-08-02 14:47:00 [facility] Height 2021-07-31 15:58:00 162.56 cm [facility] Weight 2021-07-31 15:58:00 [facility] BMI Calculated 2021-07-31 15:58:00 [facility] Temperature Oral (F) 2021-03-17 14:50:00 98.2 F [facility] Respitory Rate 2021-03-17 14:50:00 [facility] Systolic (mm Hg) 2021-03-17 14:50:00 [facility] Diastolic (mm Hg) 2021-03-17 14:50:00 [facility] Respitory Rate 2021-03-17 13:30:00 [facility] Systolic (mm Hg) 2021-03-17 13:30:00 [facility] Diastolic (mm Hg) 2021-03-17 13:30:00 [facility] Respitory Rate 2021-03-17 12:12:00 [facility] Systolic (mm Hg) 2021-03-17 12:12:00 [facility] Diastolic (mm Hg) 2021-03-17 12:12:00 [facility] Weight 2021-03-17 09:36:00 [facility] Heart Rate 2021-03-17 09:36:00 [facility] Temperature Oral (F) 2021-03-17 09:36:00 98.3 F [facility] Systolic (mm Hg) 2021-03-15 20:06:00 [facility] Diastolic (mm Hg) 2021-03-15 20:06:00 [facility] Heart Rate 2021-03-15 20:06:00 [facility] Temperature Oral (F) 2021-03-15 20:06:00 98.7 F [facility] Respitory Rate 2021-03-15 20:06:00 [facility] Temperature Oral (F) 2021-03-15 16:51:00 98.1 F [facility] Systolic (mm Hg) 2021-03-15 16:51:00 [facility] Diastolic (mm Hg) 2021-03-15 16:51:00 [facility] Respitory Rate 2021-03-15 16:51:00 [facility] Heart Rate 2021-03-15 16:51:00 [facility] Systolic (mm Hg) 2021-03-15 14:16:00 [facility] Diastolic (mm Hg) 2021-03-15 14:16:00 [facility] Respitory Rate 2021-03-15 14:16:00 [facility] Temperature Oral (F) 2021-03-14 22:00:00 98.4 F [facility] Heart Rate 2021-03-14 14:46:00 [facility] Temperature Oral (F) 2021-03-05 05:33:00 97.5 F [facility] Heart Rate 2021-03-05 05:33:00 [facility] Respitory Rate 2021-03-05 05:33:00 [facility] Systolic (mm Hg) 2021-03-05 05:33:00 [facility] Diastolic (mm Hg) 2021-03-05 05:33:00 [facility] Temperature Oral (F) 2021-03-05 01:29:00 99.2 F [facility] Heart Rate 2021-03-05 01:29:00 [facility] Respitory Rate 2021-03-05 01:29:00 [facility] Systolic (mm Hg) 2021-03-05 01:29:00 [facility] Diastolic (mm Hg) 2021-03-05 01:29:00 [facility] Temperature Oral (F) 2021-03-04 17:30:00 98 F [facility] Heart Rate 2021-03-04 17:30:00 [facility] Respitory Rate 2021-03-04 17:30:00 [facility] Systolic (mm Hg) 2021-03-04 17:30:00 [facility] Diastolic (mm Hg) 2021-03-04 17:30:00 [facility] Height 2021-03-01 01:13:00 162.56 cm [facility] Weight 2021-03-01 01:13:00 [facility] BMI Calculated 2021-03-01 01:13:00 [facility] Weight 2021-02-28 20:29:00 [facility] Systolic (mm Hg) 2021-02-28 20:29:00 [facility] Diastolic (mm Hg) 2021-02-28 20:29:00 [facility] Heart Rate 2021-02-28 20:29:00 [facility] Respitory Rate 2021-02-28 20:29:00 [facility] Temperature Oral (F) 2021-02-28 20:29:00 98.0 F [facility] Heart Rate 2021-01-24 00:20:00 [facility] Respitory Rate 2021-01-24 00:20:00 [facility] Systolic (mm Hg) 2021-01-24 00:20:00 [facility] Diastolic (mm Hg) 2021-01-24 00:20:00 [facility] Heart Rate 2021-01-23 20:29:00 [facility] Respitory Rate 2021-01-23 20:29:00 [facility] Systolic (mm Hg) 2021-01-23 20:29:00 [facility] Diastolic (mm Hg) 2021-01-23 20:29:00 [facility] Heart Rate 2021-01-23 16:38:00 [facility] Respitory Rate 2021-01-23 16:38:00 [facility] Systolic (mm Hg) 2021-01-23 16:38:00 [facility] Diastolic (mm Hg) 2021-01-23 16:38:00 [facility] Temperature Oral (F) 2021 16:25:00 98.5 F [facility] Temperature Oral (F) 2021 15:57:00 97.9 F [facility] Heart Rate 2021 00:39:00 [facility] Respitory Rate 2021 00:39:00 [facility] Systolic (mm Hg) 2021 00:39:00 [facility] Diastolic (mm Hg) 2021 00:39:00 [facility] Temperature Oral (F) 2021-01-21 17:26:00 97.7 F [facility] Heart Rate 2021-01-21 17:26:00 [facility] Systolic (mm Hg) 2021-01-21 17:26:00 [facility] Diastolic (mm Hg) 2021-01-21 17:26:00 [facility] Respitory Rate 2021-01-21 17:26:00 [facility] Heart Rate 2021-01-21 08:55:00 [facility] Respitory Rate 2021-01-21 08:55:00 [facility] Systolic (mm Hg) 2021-01-21 08:55:00 [facility] Diastolic (mm Hg) 2021-01-21 08:55:00 [facility] Temperature Oral (F) 2021-01-20 22:15:00 98.0 F [facility] Temperature Oral (F) 2021-01-20 16:38:00 98.4 F [facility] Height 2021-01-13 11:42:00 162.56 cm [facility] Weight 2021-01-13 11:42:00 [facility] Height 2021-01-06 17:18:00 162.56 cm [facility] Height 2021-01-06 13:46:00 162.56 cm [facility] Respitory Rate 2020-12-25 07:00:00 [facility] Respitory Rate 2020-12-25 06:00:00 [facility] Respitory Rate 2020-12-25 05:00:00 [facility] Systolic (mm Hg) 2020-12-25 05:00:00 [facility] Diastolic (mm Hg) 2020-12-25 05:00:00 [facility] Systolic (mm Hg) 2020-12-25 02:00:00 [facility] Diastolic (mm Hg) 2020-12-25 02:00:00 [facility] Systolic (mm Hg) 2020-12-25 01:00:00 [facility] Diastolic (mm Hg) 2020-12-25 01:00:00 [facility] Temperature Oral (F) 2020-12-24 21:00:00 100.2 F [facility] Temperature Oral (F) 2020-12-24 17:00:00 99.1 F [facility] Temperature Oral (F) 2020-12-24 13:39:00 98 F [facility] Temperature Oral (F) 2020-12-18 05:15:00 98.3 F [facility] Systolic (mm Hg) 2020-12-18 05:00:00 [facility] Diastolic (mm Hg) 2020-12-18 05:00:00 [facility] Respitory Rate 2020-12-18 05:00:00 [facility] Systolic (mm Hg) 2020-12-18 04:00:00 [facility] Diastolic (mm Hg) 2020-12-18 04:00:00 [facility] Respitory Rate 2020-12-18 04:00:00 [facility] Systolic (mm Hg) 2020-12-18 03:00:00 [facility] Diastolic (mm Hg) 2020-12-18 03:00:00 [facility] Respitory Rate 2020-12-18 03:00:00 [facility] Temperature Oral (F) 2020-12-18 02:07:00 99.4 F [facility] Temperature Oral (F) 2020-12-17 21:34:00 98.6 F [facility] Heart Rate 2020-12-16 17:30:00 [facility] Heart Rate 2020-12-16 13:24:00 [facility] Heart Rate 2020-12-16 08:54:00 [facility] Height 2020-12-16 04:35:00 162.56 cm [facility] Weight 2020-12-16 04:35:00 [facility] BMI Calculated 2020-12-16 04:35:00 [facility] Height 2020-12-15 12:30:00 162.56 cm [facility] Weight 2020-12-15 12:30:00 [facility] BMI Calculated 2020-12-15 12:30:00 [facility] Height 2020-12-13 15:50:00 162.56 cm [facility] Weight 2020-12-13 15:50:00 [facility] BMI Calculated 2020-12-13 15:50:00 [facility] Temperature Oral (F) 2020-09-22 20:26:00 98.1 F [facility] Heart Rate 2020-09-22 20:26:00 [facility] Respitory Rate 2020-09-22 20:26:00 [facility] Systolic (mm Hg) 2020-09-22 20:26:00 [facility] Diastolic (mm Hg) 2020-09-22 20:26:00 [facility] Temperature Oral (F) 2020-09-22 16:04:00 97.5 F [facility] Heart Rate 2020-09-22 16:04:00 [facility] Respitory Rate 2020-09-22 16:04:00 [facility] Systolic (mm Hg) 2020-09-22 16:04:00 [facility] Diastolic (mm Hg) 2020-09-22 16:04:00 [facility] Temperature Oral (F) 2020-09-22 12:02:00 98.1 F [facility] Heart Rate 2020-09-22 12:02:00 [facility] Respitory Rate 2020-09-22 12:02:00 [facility] Systolic (mm Hg) 2020-09-22 12:02:00 [facility] Diastolic (mm Hg) 2020-09-22 12:02:00 [facility] Systolic (mm Hg) 2020-09-18 08:00:00 [facility] Diastolic (mm Hg) 2020-09-18 08:00:00 [facility] Respitory Rate 2020-09-18 08:00:00 [facility] Respitory Rate 2020-09-18 07:00:00 [facility] Systolic (mm Hg) 2020-09-18 07:00:00 [facility] Diastolic (mm Hg) 2020-09-18 07:00:00 [facility] Systolic (mm Hg) 2020-09-18 06:00:00 [facility] Diastolic (mm Hg) 2020-09-18 06:00:00 [facility] Respitory Rate 2020-09-18 06:00:00 [facility] Temperature Oral (F) 2020-09-16 08:00:00 100.0 F [facility] Temperature Oral (F) 2020-09-16 06:12:00 99.2 F [facility] Height 2020-09-16 04:50:00 162.56 cm [facility] Weight 2020-09-16 04:50:00 [facility] Temperature Oral (F) 2020-09-16 04:19:00 99.5 F [facility] Height 2020-09-15 20:55:00 162.56 cm [facility] BMI Calculated 2020-09-15 20:55:00 [facility] Weight 2020-09-15 20:55:00 [facility] Heart Rate 2020-09-15 20:55:00 [facility] Temperature Oral (F) 2020-08-28 20:15:00 98.4 F [facility] Heart Rate 2020-08-28 20:15:00 [facility] Respitory Rate 2020-08-28 20:15:00 [facility] Systolic (mm Hg) 2020-08-28 20:15:00 [facility] Diastolic (mm Hg) 2020-08-28 20:15:00 [facility] Temperature Oral (F) 2020-08-28 17:00:00 98.6 F [facility] Heart Rate 2020-08-28 17:00:00 [facility] Respitory Rate 2020-08-28 17:00:00 [facility] Systolic (mm Hg) 2020-08-28 17:00:00 [facility] Diastolic (mm Hg) 2020-08-28 17:00:00 [facility] Temperature Oral (F) 2020-08-28 13:30:00 97.1 F [facility] Heart Rate 2020-08-28 13:30:00 [facility] Respitory Rate 2020-08-28 13:30:00 [facility] Systolic (mm Hg) 2020-08-28 13:30:00 [facility] Diastolic (mm Hg) 2020-08-28 13:30:00 [facility] Temperature Oral (F) 2020-08-28 04:25:00 98.0 F [facility] Heart Rate 2020-08-28 04:25:00 [facility] Respitory Rate 2020-08-28 04:25:00 [facility] Systolic (mm Hg) 2020-08-28 04:25:00 [facility] Diastolic (mm Hg) 2020-08-28 04:25:00 [facility] Systolic (mm Hg) 2020-08-28 01:01:00 [facility] Diastolic (mm Hg) 2020-08-28 01:01:00 [facility] Heart Rate 2020-08-28 01:01:00 [facility] Temperature Oral (F) 2020-08-28 01:01:00 97.7 F [facility] Temperature Oral (F) 2020-08-27 20:48:00 97.5 F [facility] Heart Rate 2020-08-27 20:48:00 [facility] Respitory Rate 2020-08-27 20:48:00 [facility] Systolic (mm Hg) 2020-08-27 20:48:00 [facility] Diastolic (mm Hg) 2020-08-27 20:48:00 [facility] Respitory Rate 2020-08-27 16:12:00 [facility] Height 2020-08-26 03:41:00 162.56 cm [facility] Weight 2020-08-26 03:41:00 [facility] BMI Calculated 2020-08-26 03:41:00 [facility] Height 2020-08-25 21:18:00 162.56 cm [facility] BMI Calculated 2020-08-25 21:18:00 [facility] Weight 2020-08-25 21:18:00 [facility] Temperature Oral (F) 2020-08-23 19:07:00 98.9 F [facility] Heart Rate 2020-08-23 19:07:00 [facility] Respitory Rate 2020-08-23 19:07:00 [facility] Systolic (mm Hg) 2020-08-23 19:07:00 [facility] Diastolic (mm Hg) 2020-08-23 19:07:00 [facility] Temperature Oral (F) 2020-08-23 12:50:00 99.2 F [facility] Heart Rate 2020-08-23 12:50:00 [facility] Respitory Rate 2020-08-23 12:50:00 [facility] Systolic (mm Hg) 2020-08-23 12:50:00 [facility] Diastolic (mm Hg) 2020-08-23 12:50:00 [facility] Temperature Oral (F) 2020-08-23 09:46:00 99.1 F [facility] Heart Rate 2020-08-23 09:46:00 [facility] Respitory Rate 2020-08-23 09:46:00 [facility] Systolic (mm Hg) 2020-08-23 09:46:00 [facility] Diastolic (mm Hg) 2020-08-23 09:46:00 [facility] Temperature Oral (F) 2020-08-21 05:57:00 98.9 F [facility] Heart Rate 2020-08-21 05:57:00 [facility] Respitory Rate 2020-08-21 05:57:00 [facility] Systolic (mm Hg) 2020-08-21 05:57:00 [facility] Diastolic (mm Hg) 2020-08-21 05:57:00 [facility] Temperature Oral (F) 2020-08-21 01:30:00 99.1 F [facility] Heart Rate 2020-08-21 01:30:00 [facility] Respitory Rate 2020-08-21 01:30:00 [facility] Systolic (mm Hg) 2020-08-21 01:30:00 [facility] Diastolic (mm Hg) 2020-08-21 01:30:00 [facility] Temperature Oral (F) 2020-08-20 22:05:00 100.8 F [facility] Heart Rate 2020-08-20 22:05:00 [facility] Respitory Rate 2020-08-20 22:05:00 [facility] Systolic (mm Hg) 2020-08-20 22:05:00 [facility] Diastolic (mm Hg) 2020-08-20 22:05:00 [facility] Height 2020-08-16 11:16:00 162.56 cm [facility] Weight 2020-08-16 11:16:00 [facility] BMI Calculated 2020-08-16 11:16:00 [facility] Height 2020-08-15 19:45:00 165.1 cm [facility] BMI Calculated 2020-08-15 19:45:00 [facility] Weight 2020-08-15 19:45:00 [facility] Systolic blood 2020-01-06 03:06:00 114 mm[Hg] [facility] Diastolic blood 2020-01-06 03:06:00 57 mm[Hg] [facility] Heart rate 2020-01-06 03:06:00 69 /min [facility] Body temperature 2020-01-06 03:06:00 36.28 [facility] Respiratory rate 2020-01-06 03:06:00 17 /min [facility] Oxygen saturation in 2020-01-06 03:06:00 97 /min [facility] Arterial blood by [facility] Pulse oximetry Systolic (mm Hg) 2018-12-30 15:30:00 [facility] Diastolic (mm Hg) 2018-12-30 15:30:00 [facility] Heart Rate 2018-12-30 15:30:00 [facility] Respitory Rate 2018-12-30 15:30:00 [facility] Temperature Oral (F) 2018-12-30 15:30:00 98.6 F [facility] Height 2018-12-30 15:30:00 162.56 cm [facility] Weight 2018-12-30 15:30:00 [facility] BMI Calculated 2018-12-30 15:30:00 [facility] BMI Calculated 2018-09-08 14:29:00 [facility] Weight 2018-09-08 14:29:00 [facility] Height 2018-09-08 14:29:00 162.56 cm [facility] Temperature Oral (F) 2018-09-08 14:29:00 97.8 F [facility] Heart Rate 2018-09-08 14:29:00 [facility] Systolic (mm Hg) 2018-09-08 14:29:00 [facility] Diastolic (mm Hg) 2018-09-08 14:29:00 [facility] Systolic (mm Hg) 2018-08-29 13:16:00 [facility] Diastolic (mm Hg) 2018-08-29 13:16:00 [facility] Respitory Rate 2018-08-29 13:16:00 [facility] Temperature Oral (F) 2018-08-29 13:16:00 97.9 F [facility] [place] Heart Rate 2018-08-29 13:16:00 [facility] [place] Respitory Rate 2018-08-29 09:56:00 [facility] [place] Systolic (mm Hg) 2018-08-29 09:56:00 [facility] [place] Diastolic (mm Hg) 2018-08-29 09:56:00 [facility] [place] Temperature Oral (F) 2018-08-29 09:56:00 98.1 F [facility] Heart Rate 2018-08-29 09:56:00 [facility] [place] Respitory Rate 2018-08-29 05:04:00 [facility] [place] Systolic (mm Hg) 2018-08-29 05:04:00 [facility] [place] Diastolic (mm Hg) 2018-08-29 05:04:00 [facility] [place] Heart Rate 2018-08-29 05:04:00 [facility] [place] Temperature Oral (F) 2018-08-29 05:04:00 98.2 F [facility] Weight 2018-08-25 15:19:00 [facility] BMI Calculated 2018-08-25 15:19:00 [facility] Height 2018-08-25 15:19:00 162.56 cm [facility] [place] Heart Rate 2018-08-25 15:19:00 [facility] Temperature Oral (F) 2018-08-25 15:19:00 98.0 F [facility] Systolic (mm Hg) 2018-08-25 15:19:00 [facility] [place] Diastolic (mm Hg) 2018-08-25 15:19:00 [facility] [place] BMI Calculated 2018-08-24 13:35:00 [facility] Height 2018-08-24 13:35:00 162.56 cm [facility] [place] Weight 2018-08-24 13:35:00 [facility] [place] Weight 2018-07-21 21:30:00 [facility] [place] Height 2018-07-21 21:30:00 162.56 cm [facility] BMI Calculated 2018-07-21 21:30:00 [facility] Systolic (mm Hg) 2018-07-21 21:30:00 [facility] Diastolic (mm Hg) 2018-07-21 21:30:00 [facility] Heart Rate 2018-07-21 21:30:00 [facility] Temperature Oral (F) 2018-07-21 21:30:00 98.0 F [facility] Procedures Procedure Date / Time Performing Clinician Source Performed MR BRAIN W WO CONTRAST 2023-02-27 Stefanie Sergey Reji [facility] 21:05:26 [facility] ASSIGNMENT OF BENEFITS 2023-02-27 Doctor Unasselaina, [facility] 19:49:48 [facility] CONSENT/REFUSAL FOR 2023-02-27 Doctor Unassigned, [facility] DIAGNOSIS AND TREATMENT 19:49:20 [facility] FLU VACC (), 6 2023-02-18 Sergey Watts [facility] [place]-[id number] YRS, .5ML, IM, QUAD 15:10:07 Medica l Branch (FLUCELVAX) CONSENT/REFUSAL FOR 2022-12-23 Doctor Unassigned, [facility] DIAGNOSIS AND TREATMENT 17:57:37 [facility] HOME HEALTH - OTHER 2022-08-08 Doctor Unassigned, [facility] 05:01:00 [facility] REPORT OF PROCEDURE - 2020-01-26 Provider, Default [facility] ENDOSCOPY SCAN 15:23:18 [facility] RHYTHM STRIP - SCAN 2020-01-07 Provider, Default [facility] 11:03:25 [facility] ECG 12-LEAD 2020-01-06 Unknown, Hl[facility] 20:37:46 [facility] ECG 12-LEAD 2020-01-06 Unknown, Hl7 [facility] 20:37:30 [facility] ANTITHROMBIN III 2020-01-[address] [facility] 12:04:00 [facility] PHOSPHATIDYLSERINE ABS (IGG, 2020-01-[address] [facility] IGM) 12:04:00 [facility] BETA-2 GLYCOPROTEIN 2020-01-[address] [facility] ANTIBODIES 12:04:00 [facility] LUPUS ANTICOAGULANT SCREEN 2020-01-06 Jasmeet Moore [facility] WITH REFLEX TO CONFIRMATORY 12:04:00 [facility] UWSH-7-[id number] I IGG 2020-01-[address] [facility] 12:04:00 [facility] DEGF-5-[id number] I IGM 2020-01-06 [facility] 12:04:00 [facility] GJBH-4-[id number] I IGA 2020-01-[address] [facility] 12:04:00 [facility] 2D ECHO W/ DOPPLER 2020-01-[address] [facility] (CW/PW/COLOR) 09:29:19 [facility] HEMOGLOBIN A1C 2020-01-05 Oscar, Jasmeet [facility] 15:18:00 Medical Center LIPID PANEL 2020-01-05 Oscar, Jasmeet [facility] 15:18:00 [facility] TSH/FREE T4 IF INDICATED 2020-01-05 Oscar, Jasmeet [facility] 15:18:00 [facility] VITAMIN B12 AND FOLATE 2020-01-05 Oscar, [facility] 15:18:00 [facility] HEPATIC FUNCTION PANEL 2020-01-05 Oscar, Jasmeet [facility] 15:18:00 [facility] CTA CAROTID 2020-01-[address] [facility] 13:50:00 [facility] CTA BRAIN 2020-01-05 Thapapamela Benjamin, [facility] 13:50:00 [facility] MR BRAIN WITH & WITHOUT IV 2020-01-[address] [facility] CONTRAST 18:27:00 [facility] VALPROIC ACID LEVEL, TOTAL 2020-01-04 Oscar [facility]rey[facility] 16:35:00 [facility] EEG AWAKE AND DROWSY 2020-01-04 Elier Benjamin [facility] 15:47:00 [facility] BASIC METABOLIC PANEL (7) 2020-01-[address] [facility] 06:04:00 [facility] CBC W/PLT COUNT & AUTO 2020-01-04 Robertn, Christopher [facility] DIFFERENTIAL 06:04:00 [facility] BLOOD CULTURE 2020-01-[address] [facility] 22:47:00 [facility] BLOOD CULTURE 2020-01-03 Shinthia, Nashid [facility] 22:24:00 [facility] URINALYSIS W/ REFLEX URINE 2020-01-[address] [facility] CULTURE 22:24:00 [facility] ECG 12-LEAD 2020-01-03 Unknown, Hl7 [facility] 20:43:36 [facility] SARS-COV2/RT-PCR (SLHS & REF 2020-01-03 Maryan Maureen [facility] 20:02:00 [facility] CBC W/PLT COUNT & AUTO 2020-01-[address] [facility] DIFFERENTIAL 20:02:00 [facility] BASIC METABOLIC PANEL (7) 2020-01-03 [facility] 20:02:00 [facility] PROTHROMBIN TIME/INR 2020-01-[address] [facility] 20:02:00 [facility] LACTIC ACID, VENOUS 2020-01-[address] [facility] 20:02:00 [facility] XR CHEST 1 VIEW PORTABLE / 2020-01-[address] [facility] BEDSIDE 19:54:00 [facility] procedure<sup>2</sup> [facility] ermann operation<sup>1</sup> [facility] ermann D&C - Dilatation and [facility] rmann curettage [facility]<sup>6</sup> Operation<sup>1</sup> [facility] ermann Operation<sup>2</sup> [facility] ermann Dilation and curettage [facility] operation<sup>4</sup> [facility] ermann procedure<sup>5</sup> [facility] Care Planned Activity Planned Date Details Comments Source Future Scheduled 2023-01-04 Lipid panel (procedure) [facility] Test 00:00:00 [code = 89387788] Medical Ce nter Future Scheduled 2023-01-04 Lipid panel (procedure) [facility] Test 00:00:00 [code = 85487464] Medical Ce nter Future Scheduled 2023-01-04 Lipid panel (procedure) [facility] Test 00:00:00 [code = 66481814] Medical Ce nter Future Scheduled 2023-01-04 Lipid panel (procedure) [facility] Test 00:00:00 [code = 71779896] Medical Ce nter Future Scheduled 2023-01-04 Lipid panel (procedure) [facility] Test 00:00:00 [code = 08456698] Medical Ce nter Future Scheduled 2023-01-04 Lipid panel (procedure) [facility] Test 00:00:00 [code = 93783837] Medical Ce nter Future Scheduled 2023-01-04 Lipid panel (procedure) [facility] Test 00:00:00 [code = 80802053] Medical Ce nter Future Scheduled 2023-01-04 Lipid panel (procedure) [facility] Test 00:00:00 [code = 97558793] Medical Ce nter Future Scheduled 2023-01-04 Lipid panel (procedure) [facility] Test 00:00:00 [code = 31186490] Medical Ce nter Future Scheduled 2023-01-04 Lipid panel (procedure) [facility] Test 00:00:00 [code = 67752824] Medical Ce nter Future Scheduled 2021-12-27 INFLUENZA [...] cervix Medical C enter (procedure) [code = 846598991] Future Scheduled 1986 Screening for malignant [facility] Test 00:00:00 neoplasm of cervix Medical C enter (procedure) [code = 276770889] Future Scheduled 1986 Screening for malignant [facility] Test 00:00:00 neoplasm of cervix Medical C enter (procedure) [code = 430474660] Future Scheduled 1986 Screening for malignant [facility] Test 00:00:00 neoplasm of cervix Medical C enter (procedure) [code = 549725315] Future Scheduled 1986 Screening for malignant [facility] Test 00:00:00 neoplasm of cervix Medical C enter (procedure) [code = 334982446] Future Scheduled 1986 Screening for malignant [facility] Test 00:00:00 neoplasm of cervix Medical C enter (procedure) [code = 746454632] Future Scheduled 1986 Screening for malignant [facility] Test 00:00:00 neoplasm of cervix Medical C enter (procedure) [code = 165072278] Future Scheduled 1986 Screening for malignant [facility] Test 00:00:00 neoplasm of cervix Medical C enter (procedure) [code = 434472010] Future Scheduled 1986 Screening for malignant [facility] Test 00:00:00 neoplasm of cervix Medical C enter (procedure) [code = 029446063] Future Scheduled 1986 Screening for malignant [facility] Test 00:00:00 neoplasm of cervix Medical C enter (procedure) [code = 298370515] Future Scheduled 1984-01-23 DTAP/TDAP/TD VACCINES CH I [...] breast Medical C enter (procedure) [code = 390961471] Future Scheduled 1965 Screening for malignant [facility] Test 00:00:00 neoplasm of colon Medical Ce nter (procedure) [code = 861468279] Future Scheduled 1965 Screening for malignant [facility] Test 00:00:00 neoplasm of breast Medical C enter (procedure) [code = 736395686] Future Scheduled 1965 Screening for malignant [facility] Test 00:00:00 neoplasm of colon Medical Ce nter (procedure) [code = 966630773] Future Scheduled 1965 Screening for malignant [facility] Test 00:00:00 neoplasm of breast Medical C enter (procedure) [code = 092610606] Future Scheduled 1965 Screening for malignant [facility] Test 00:00:00 neoplasm of colon Medical Ce nter (procedure) [code = 908848920] Future Scheduled 1965 Screening for malignant [facility] Test 00:00:00 neoplasm of breast Medical C enter (procedure) [code = 981846795] Future Scheduled 1965 Screening for malignant [facility] Test 00:00:00 neoplasm of colon Medical Ce nter (procedure) [code = 389137081] Future Scheduled 1965 Screening for malignant [facility] Test 00:00:00 neoplasm of breast Medical C enter (procedure) [code = 772650513] Future Scheduled 1965 Screening for malignant [facility] Test 00:00:00 neoplasm of colon Medical Ce nter (procedure) [code = 824471105] Future Scheduled 1965 Screening for malignant [facility] Test 00:00:00 neoplasm of breast Medical C enter (procedure) [code = 252692568] Future Scheduled 1965 Screening for malignant [facility] Test 00:00:00 neoplasm of colon Medical Ce nter (procedure) [code = 465630850] Future Scheduled 1965 Screening for malignant [facility] Test 00:00:00 neoplasm of breast Medical C enter (procedure) [code = 372598654] Future Scheduled 1965 Screening for malignant [facility] Test 00:00:00 neoplasm of colon Medical Ce nter (procedure) [code = 843511558] Future Scheduled 1965 Screening for malignant [facility] Test 00:00:00 neoplasm of breast Medical C enter (procedure) [code = 963258351] Future Scheduled 1965 Screening for malignant [facility] Test 00:00:00 neoplasm of colon Medical Ce nter (procedure) [code = 687589793] Future Scheduled 1965 Screening for malignant [facility] Test 00:00:00 neoplasm of breast Medical C enter (procedure) [code = 212509659] Future Scheduled 1965 CT Colonography (combo) [facility] Test 00:00:00 [code = CT Colonography [facility] (combo)] Future Scheduled 1965 Screening for malignant [facility] Test 00:00:00 neoplasm of colon Medical Ce nter (procedure) [code = 926441306] Future Scheduled 1965 Screening for malignant [facility] Test 00:00:00 neoplasm of colon Medical Ce nter (procedure) [code = 231817657] Future Scheduled 1965 Screening for malignant [facility] Test 00:00:00 neoplasm of colon Medical Ce nter (procedure) [code = 010902066] Future Scheduled 1965 Screening for malignant [facility] Test 00:00:00 neoplasm of colon Medical Ce nter (procedure) [code = 716086300] Future Scheduled 1965 Sigmoidoscopy [code = [facility]] Medical Cent[facility] r Future Scheduled 1965 Screening for malignant [facility] Test 00:00:00 neoplasm of breast Medical C enter (procedure) [code = 202805026] Future Scheduled 1965 Screening for malignant [facility] Test 00:00:00 neoplasm of colon Medical Ce nter (procedure) [code = 255094223] Encounters Start End Encounter Admission Attending Care Care Encounter Source Date/Time Date/Time Type Type Clinicians Facility Department ID 2022-11-20 Outpatient [facility] [id number] [place] 10:37:45 [id number] [facility] 2022-11-11 Outpatient [facility] [id number] [place] 14:39:27 [id number] [facility] 2022-11-07 Outpatient [facility] [id number] [place] 08:37:30 [id number] [facility] 2022-10-07 Outpatient [facility] [id number] [place] 12:38:42 [id number] [facility] 2022-10-01 Outpatient [facility] [id number] [place] 07:29:00 [id number] [facility] 2022-09-18 Outpatient [facility] [id number] [place] 08:33:43 [id number] [facility] 2022-09-11 Outpatient [facility] [id number] [place] 09:39:22 [id number] [facility] 2022-08-26 Outpatient [facility] [id number] [place] 14:58:42 [id number] [facility] 2022-08-22 Outpatient [facility] [id number] [place] 16:09:51 [id number] [facility] 2022-08-20 Outpatient [facility] [id number] [place] 09:35:24 [id number] [facility] 2022-08-02 Outpatient [facility] [id number] [place] 08:08:01 [id number] [facility] 2022-06-19 Outpatient [facility] [id number] [place] 16:15:38 [id number] [facility] 2022-05-14 Outpatient [facility] [id number] [place] 07:56:51 [id number] [facility] 2022-04-02 Outpatient [facility] [id number] [place] 09:29:18 [id number] [facility] 2022-02-11 Outpatient [facility] [id number] [place] 09:19:11 [id number] [facility] 2021-06-[address], [facility] [id number] [place] 11:16:38 [facility] 2021-06-12 Out[address], [facility] [id number] [place] 01:04:47 [facility] 2021-06-02 [address], [facility] [id number] [place] 01:02:17 [facility] 2021-03-26 [address], [facility] [id number] [place] 01:03:31 [facility] 2021-03-16 [address], [facility] [id number] [place] 01:03:14 [facility] 2021-02-19 [address], [facility] [id number] [place] 14:25:58 [facility] 2020-09-18 Outpatient DANVIGNESHNBAUM, [facility] [id number] [place] 01:03:56 [facility] 2020-09-02 Outpatient [facility] [id number] [place] 03:08:43 [facility] 2018-08-27 [id number] 08:45:00 2023-05-14 2023-05-[address], [facility] [id number] [place] 13:15:00 13:15:00 [facility] 2023-04-08 2023-04-08 Outpatient [facility] [id number] Univers 11:20:00 11:20:00 SERGEY WATTS [facility] 2023-04-02 2023-04-02 Outpatient PRANAY [facility] [id number] Univers 14:45:00 14:45:00 PRANAY PINEDO [facility] 2023-03-18 2023-03-18 Outpatient [facility] [id number] Univers 11:40:00 11:40:00 SERGEY WATTS brittani [facility] 2023-02-27 2023-02-27 Outpatient [facility] [id number] Univers 14:51:15 23:59:00 SERGEY WATTS brittani [facility] 2023-02-27 2023-02-27 [facility] [id number] Univers 14:51:15 23:59:00 Encounter Sergey Mendoza [place] 350.1.13.10 it josette [facility] 4.2.7.2.686 [facility] [id number] [facility] [address] 2023-02-26 2023-02-26 Outpatient GC_GCBZW_Ka PRIV PRIV [id number] [facility] 00:00:00 00:00:00 diyala_S [id number] Medic al 2023-02-18 2023-02-18 Outpatient [facility] [id number] Univers 08:40:00 10:06:40 SERGYE WATTS [facility] 2023-02-18 2023-02-18 Office Stefanie [facility] 1.2.840.114 [id number] Univers 08:40:00 10:06:40 Visit Sergey Mendoza [facility] 350.1.13.10 [facility] 4.2.7.2.686 Teto as PETER?BLEA [id number] [address] MEDICAL OFFICE [facility] 2023-02-12 2023-02-12 Office Freetong, [facility] 6410 1.2.840.114 [id number] [place] 13:15:00 14:19:47 Visit Jason OLIVER 350.1.13.58 Health 9.2.7.2.686 [id number] 2023-01-20 2023-01-20 Refill Stefanie [facility] 1.2.840.114 [id number] Univers 00:00:00 00:00:00 [facility] 350.1.13.10 [facility] 4.2.7.2.686 Teto as PETER?BLEA [id number] [address] OFFICE BUILDING 2023-01-01 2023-01-01 Office SARAH, [facility] 6410 1.2.840.114 [id number] [place] 14:00:00 14:00:00 Visit JASON OLIVER 350.1.13.58 Health 9.2.7.2.686 [id number] 5 2022-12-23 2022-12-23 Outpatient [facility] [id number] Univers 13:00:00 13:44:10 [facility]22-12-23 2022-12-23 [facility] 1.2.840.114 [id number] Univers 13:00:00 13:44:10 Visit Sergey [facility] 350.1.13.10 ity of [place] 4.2.7.2.686 Teto as PETER?BLEA [id number] [address] OFFICE [facility] 2022-12-23 2022-12-23 Orders Doctor SIDNEY 1.2.840.114 [id number] Univers 00:00:00 00:00:00 Only Unassigned, REAL 350.1.13.10 ity of [place] [facility] 4.2.7.2.686 Teto as [id number] [address] 2022-11-27 2022-11-27 Outpatient [facility] [id number] [place] 14:30:00 14:30:00 JASON [facility] 2022-11-20 2022-11-20 Office [facility], [facility] 6410 1.2.840.114 [id number] [place] 13:15:00 13:37:12 Visit Jason OLIVER 350.1.13.58 Health 9.2.7.2.686 [id number] 2022-11-08 2022-11-08 Refjonathan Watts [facility] 1.2.840.114 [id number] Univers 00:00:00 00:00:00 [facility] 350.1.13.10 ity josette REYEZ 4.2.7.2.686 Teto as PETER?BLEA [id number] Nv vincent [address] MEDICAL OFFICE BUILDING 2022-10-30 2022-10-30 Office Sarah, AMELIA 6410 1.2.840.114 [id number] [place] 15:15:00 16:55:[address] 350.1.13.58 Health 9.2.7.2.686 [id number] 2022-10-16 2022-10-16 Office Sarah, AMELIA 6410 1.2.840.114 [id number] [place] 14:45:00 15:51:51 Visit Jason OLIVER 350.1.13.58 Health 9.2.7.2.686 [id number] 5 2022-10-03 2022-10-08 Inpatient [facility] [id number] 16:29:00 15:28:[address] 2022-10-03 2022-10-08 [address] FRE[address], [facility] [id number] [facility] 11:29:00 10:28:00 JASON 2022-10-03 2022-10-08 Outpatient Freet, [facility] [id number] 11:29:00 10:28:00 Jason Conde 2022-10-03 2022-10-[address], [facility] [id number] [place] 11:00:00 [facility]:00:[facility] 2022-10-02 2022-10-02 Office Sarah, [facility] 6410 1.2.840.114 [id number] [place] 13:30:00 15:28:10 Visit Jason OLIVER 350.1.13.58 Health 9.2.7.2.686 [id number] 5 2022-09-18 2022-09-18 Office Sarah, [facility] 6410 1.2.840.114 [id number] [place] 14:15:00 14:38:44 Visit Jason OLIVER 350.1.13.58 Health 9.2.7.2.686 [id number] 2022-09-17 2022-09-17 [facility] 1.2.840.114 [id number] [facility] 00:00:00 00:00:00 [facility] 350.1.13.10 ity of [place] 4.2.7.2.686 Teto as PETER?BLEA [id number] [address] OFFICE [facility] 2022-09-16 2022-09-16 Telephone [facility] 1.2.840.114 [id number] [facility] 00:00:00 00:00:00 [facility] 350.1.13.10 ity of [place] 4.2.7.2.686 Teto as PETER?BLEA [id number] [address] OFFICE [facility] 2022-08-27 2022-08-27 [facility] [id number] [place] 12:45:00 12:45:00 [facility] 2022-08-26 2022-08-26 Consult AMELIA CHILDERS 6400 1.2.840.114 1 [id number] [place] 15:15:00 15:15:[address] 350.1.13.58 Health 9.2.7.2.686 [id number] 0 2022-08-14 2022-08-14 Office AMELIA SMITH 6410 1.2.840.114 [id number] [place] 13:30:00 13:30:[address] 350.1.13.58 Health 9.2.7.2.686 [id number] 5 2022-08-09 2022-08-09 [facility] 1.2.840.114 [id number] Univers 00:00:00 00:00:00 [facility] 350.1.13.10 ity of [place] 4.2.7.2.686 Teto as PETER?BLEA [id number] [address] OFFICE [facility] 2022-08-09 2022-08-09 Telephone [facility] 1.2.840.114 [id number] [facility] 00:00:00 00:00:00 [facility] 350.1.13.10 ity of [place] 4.2.7.2.686 Teto as PETER?BLEA [id number] [address] MEDICAL OFFICE [facility] 2022-08-08 2022-08-08 Orders Doctor SIDNEY 1.2.840.114 [id number] Univers 00:00:00 00:00:00 Only Unassigned, REAL 350.1.13.10 ity of [place] [facility] 4.2.7.2.686 Teto as [id number] [facility] [address] 2022-08-02 2022-08-03 Outpt Diag [facility] [id number] [place] 20:06:00 04:59:00 Services Outpatient 00 l Imaging Duy Howard 2022-08-02 2022-08-02 Outpatient Sarah 29 [id number] 15:06:00 23:59:00 Jason Conde 2022-07-31 2022-07-31 Office Sarah, [facility] 6410 1.2.840.114 [id number] [place] 14:45:00 16:22:00 Visit Jason OLIVER 350.1.13.58 Health 9.2.7.2.686 [id number] 2022-07-17 2022-07-17 [place] [facility] 1.2.840.114 [id number] [facility] 00:00:00 00:00:00 [facility] 350.1.13.10 ity of [place] 4.2.7.2.686 Teto as PETER?BLEA [id number] [address] MEDICAL OFFICE [facility] 2022-07-16 2022-07-16 Patient Doctor SIDNEY 1.2.840.114 [id number] Univers 00:00:00 00:00:00 Secure Msg Unassigned, REAL 350.1.13.10 ity of [place] [facility] 4.2.7.2.686 Teto as [id number] [facility] [address] 2022-07-09 2022-07-09 [facility] 1.2.840.114 [id number] Univers 00:00:00 00:00:00 [facility] 350.1.13.10 ity of [place] 4.2.7.2.686 Teto as PETER?BLEA [id number] [address] OFFICE [facility] 2022-06-24 2022-06-24 Telephone [facility] 1.2.840.114 [id number] Univers 00:00:00 00:00:00 [facility] 350.1.13.10 ity of [place] 4.2.7.2.686 Teto as PETER?BLEA [id number] [address] OFFICE [facility] 2022-06-21 2022-06-21 Telephone [facility] 1.2.840.114 [id number] Univers 00:00:00 00:00:00 [facility] 350.1.13.10 ity of [place] 4.2.7.2.686 Teto as PETER?BLEA [id number] [address] 2022-06-17 2022-06-17 [facility] 1.2.840.114 [id number] Univers 00:00:00 00:00:00 [facility] 350.1.13.10 ity of [place] 4.2.7.2.686 Teto as PETER?BLEA [id number] [address] OFFICE [facility] 2022-06-17 2022-06-17 Telephone [facility] 1.2.840.114 [id number] Univers 00:00:00 00:00:00 [facility] 350.1.13.10 ity of [place] 4.2.7.2.686 Teto as PETER?BLEA [id number] [address] OFFICE [facility] 2022-06-14 2022-06-14 Telephone [facility] 1.2.840.114 [id number] Univers 00:00:00 00:00:00 [facility] 350.1.13.10 ity of [place] 4.2.7.2.686 Teto as PETER?BLEA [id number] [address] OFFICE [facility] 2022-06-10 2022-06-10 Telephone [facility] 1.2.840.114 [id number] Univers 00:00:00 00:00:00 [facility] 350.1.13.10 ity of [place] 4.2.7.2.686 Teto as PETER?BLEA [id number] [address] OFFICE [facility] 2022-06-07 2022-06-07 [facility]phone [facility] 1.2.840.114 [id number] Univers 00:00:00 00:00:00 [facility] 350.1.13.10 ity of [place] 4.2.7.2.686 Teto as PETER?BLEA [id number] [address] OFFICE [facility] 2022-06-03 2022-06-03 Telephone [facility] 1.2.840.114 [id number] Univers 00:00:00 00:00:00 [facility] 350.1.13.10 ity of [place] 4.2.7.2.686 Teto as PETER?BLEA [id number] [address] OFFICE [facility] 2022-05-29 2022-05-29 Office Sarah [facility] 6410 1.2.840.114 [id number] [place] 13:00:00 13:50:36 Visit Jason [place] 350.1.13.58 Health 9.2.7.2.686 [id number] 2022-05-15 2022-05-15 [facility] [id number] [place] 10:45:00 10:45:00 [facility] 2022-04-12 2022-04-12 Outpatient SERGEY [facility] [id number] [facility] 09:40:00 11:04:05 SERGEY WATTS [facility] 2022-04-12 2022-04-12 Office Stefanie [facility] [id number] [facility] 09:40:00 11:04:05 Visit [facility] [id number] ity of [place] [id number] [place] as PETER?BLEA [phone] [address] OFFICE [facility] 2022-04-09 2022-04-09 Rafael Watts [facility] [id number] [facility] 00:00:00 00:00:00 [facility] [id number] ity of [place] [id number] [place]eto as PETER?BLEA [phone] [address] 2022-04-03 2022-04-03 Office Sarah [facility] 6410 [id number] [place] 13:45:00 13:45:00 Visit Jason ONTIVEROS 350.1.13.58 Health 9.2.7.2.686 [id number] 5 2022-04-01 2022-04-01 [facility] 1.2.840.114 [id number] Univers 00:00:00 00:00:00 [facility] 350.1.13.10 ity of [place] 4.2.7.2.686 Teto as PETER?BLEA [phone] [address] 2022-03-06 2022-03-06 [facility] [id number] [place] 15:15:00 15:15:00 [facility] 2022-02-28 2022-02-28 [facility] 1.2.840.114 [id number] Univers 00:00:00 00:00:00 [facility] 350.1.13.10 ity of [place] 4.2.7.2.686 Teto as PETER?BLEA [id number] [address] 2022-02-27 2022-02-27 Refjonathan Watts [facility] 1.2.840.114 [id number] Univers 00:00:00 00:00:00 [facility] 350.1.13.10 ity of [place] 4.2.7.2.686 Teto as PETER?BLEA [id number] [address] 2022-02-26 2022-02-26 Outpatient SERGEY [facility] [id number] Univers 00:00:00 00:00:00 SERGEY WATTS [facility] 2022-02-18 2022-02-18 Outpatient R SERGEY WATTS [facility] [id number] [facility] 11:20:00 13:05:18 SERGEY WATTS [facility] 2022-02-18 2022-02-18 Office Stefanie [facility] 1.2.840.114 [id number] Univers 11:20:00 13:05:18 Visit Sergey [facility] 350.1.13.10 [facility] 4.2.7.2.686 Teto as PETER?BLEA [id number] [address] OFFICE [facility] 2022-02-08 2022-02-08 Office Chino [facility] 6410 1.2.840.114 [id number] [place] 10:15:00 10:56:19 Visit Cyrus FISCHERRaven [place] 350.1.13.58 Health 9.2.7.2.686 [id number] 5 2022 2022 [facility] 1.2.840.114 [id number] [facility] 00:00:00 00:00:00 [facility] 350.1.13.10 ity of [place] 4.2.7.2.686 Teto as PETER?BLEA [id number] [address] OFFICE [facility] 2021-12-26 2021-12-26 [facility] [id number] [place] 14:30:00 14:30:00 JASON [facility] 2021-12-26 2021-12-26 Office Sarah [facility] 6410 1.2.840.114 [id number] [place] 13:00:00 13:34:[address] 350.1.13.58 Health 9.2.7.2.686 [id number] 5 2021-12-21 2021-12-21 Telephone Stefanie [facility] 1.2.840.114 [id number] Univers 00:00:00 00:00:00 [facility] 350.1.13.10 ity of [place] 4.2.7.2.686 Teto as PETER?BLEA [phone] Nv vincent [address] OFFICE [facility] 2021-12-19 2021-12-19 Leena Watts [facility] 1.2.840.114 [id number] Univers 00:00:00 00:00:00 [facility] 350.1.13.10 itIlya 4.2.7.2.686 Teto as PETER?BLEA [phone] [address] OFFICE [facility] 2021-12-12 2021-12-12 Office Sarah, [facility] 6410 1.2.840.114 [id number] [place] 11:45:00 15:00:28 Visit Jason FISCHERRaven [place] 350.1.13.58 Health 9.2.7.2.686 [id number] 5 2021-12-05 2021-12-05 Office Sarah, [facility] 6410 1.2.840.114 [id number] [place] 13:45:00 15:34:35 Visit Jason FISCHERRaven [place] 350.1.13.58 Health 9.2.7.2.686 [id number] 5 2021-11-30 2021-12-01 Bedded [facility] [id number] [facility] 18:48:00 22:21:[address] 2021-11-30 2021-12-[address], [facility] 7501 [facility] 13:48:00 17:21:00 JASON 2021-11-30 2021-12-01 Outpatient Freet, [facility] [id number] 13:48:00 17:21:00 Jason Conde 2021-11-30 2021-11-[address], [facility] [id number] [place] 07:45:00 07:45:[facility] 2021-11-21 2021-11-21 Office Sarah, [facility] 6410 1.2.840.114 [id number] [place] 15:00:00 16:23:[address] 350.1.13.58 Health 9.2.7.2.686 [id number] 5 2021-11-08 2021-11-14 Inpatient [facility] [id number] Memoria 12:05:00 15:51:00 r [place] 00 [facility] 2021-11-08 2021-11-[address], [facility] 7500 [facility] 07:05:00 10:51:00 JASON 2021-11-08 2021-11-14 Outpatient Freet, [facility] [id number] 07:05:00 10:51:00 Jason Conde 2021-11-08 2021-11-[address], [facility] [id number] [place] 08:45:00 08:45:00 [facility] 2021-10-30 2021-10-30 Outpatient SER[facility]Y [facility] [id number] Univers 09:40:00 09:40:00 SERGEY WATTS britt[facility] 2021-10-26 2021-10-26 Outpatient SERGEY [facility] [id number] Univers 16:20:00 16:37:58 SERGEY WATTS [facility] 2021-10-26 2021-10-26 Office Stefanie [facility] 1.2.840.114 [id number] Univers 16:20:00 16:37:58 Visit Sergey [facility] 350.1.13.10 ity [facility] 4.2.7.2.686 Teto as PETER?BLEA [id number] [address] MEDICAL OFFICE [facility] 2021-10-26 2021-10-26 Outpatient SERGEY [facility] [id number] Univers 16:20:00 16:20:00 SERGEY WATTS [facility] 2021-10-26 2021-10-26 Orders Doctor SIDNEY 1.2.840.114 [id number] Univers 00:00:00 00:00:00 Only Unassigned, REAL 350.1.13.[address] [facility] 4.2.7.2.686 Teto as [phone] [address] 2021-10-09 2021-10-09 Patient Doctor IACLAUDIA 1.2.840.114 [id number] Univers 00:00:00 00:00:00 Secure Msg Unassigned, [facility] 350.1.13.10 ity [place] 4.2.7.2.686 Teto as PETER?BLEA [id number] Nv vincent GONZALEZ [address] [place] [address] OFFICE [facility] 2021-10-08 2021-10-08 Leena Watts [facility] 1.2.840.114 [id number] Univers 00:00:00 00:00:00 [facility] 350.1.13.10 ity of [place] 4.2.7.2.686 Teto as PETER?BLEA [id number] Nv vincent GONZALEZ [address] [place] [address] OFFICE [facility] 2021-09-26 2021-09-26 Office Sarah, [facility] 6410 1.2.840.114 [id number] [place] 16:00:00 16:31:19 Visit Jason [place] 350.1.13.58 Health 9.2.7.2.686 [id number] 5 2021-09-26 2021-09-26 [facility] [id number] [place] 12:45:00 12:45:00 [facility] 2021-09-06 2021-09-06 [facility] 1.2.840.114 [id number] [facility] 00:00:00 00:00:00 [facility] 350.1.13.10 ity of [place] 4.2.7.2.686 Teto as PETER?BLEA [id number] Nv vincent GONZALEZ [address] [place] [address] OFFICE [facility] 2021-09-05 2021-09-05 Office [facility] 6410 1.2.840.114 [id number] [place] 13:00:00 13:24:22 Visit Jason [place] 350.1.13.58 Health 9.2.7.2.686 [id number] 2021-08-31 2021-08-31 Refjonathan Watts [facility] 1.2.840.114 [id number] Univers 00:00:00 00:00:00 [facility] 350.1.13.10 ity of [place] 4.2.7.2.686 Teto as PETER?BLEA [phone] Me dical [address] MEDICAL OFFICE [facility] 2021-08-29 2021-08-29 Office Freet, [facility] 6410 1.2.840.114 [id number] [place] 13:00:00 14:11:[address] 350.1.13.58 Health 9.2.7.2.686 [id number] 5 2021-08-23 2021-08-24 [facility] [id number] [facility] 14:31:00 04:59:00 Surgery [facility] 09 [facility] 2021-08-23 2021-08-[address], [facility] 7509 [facility] 09:31:00 23:59:00 JASON 2021-08-23 2021-08-23 Outpatient Freet, [facility] [id number] 09:31:00 23:59:00 Jason Conde 2021-08-23 2021-08-23 Outpatient Freet, [facility] [id number] 09:31:00 23:59:00 Jason Conde 2021-08-23 2021-08-[address], [facility] [id number] [place] 14:30:00 14:30:00 JASON Stoney 2021-08-22 2021-08-22 Office Freetong, [facility] 6410 1.2.840.114 [id number] [place] 11:00:00 11:47:[address] 350.1.13.58 Health 9.2.7.2.686 [id number] 5 2021-08-16 2021-08-16 Telephone HiTarsha [facility] 6410 1.2.840. 114 [id number] [place] 00:00:00 00:00:[address] 350.1.13.58 Health 9.2.7.2.686 [id number] 5 2021-08-09 2021-08-09 Telephone Hi Tarsha [facility] 6410 1.2.840. 114 [id number] [place] 00:00:00 00:00:[address] 350.1.13.58 Health 9.2.7.2.686 [id number] 5 2021-08-08 2021-08-08 Office Sarah AMELIA 6410 1.2.840.114 [id number] [place] 13:30:00 15:11:11 Visit Jason [place] 350.1.13.58 Health 9.2.7.2.686 [id number] 5 2021-08-03 2021-08-04 Observatio [facility] [id number] Memoria 23:22:00 21:40:00 [facility] 08 l [facility] 2021-08-03 2021-08-04 Outpatient U STEVE NAVA [facility] MED 750 [id number] [facility] 18:22:00 16:40:00 2021-08-03 2021-08-04 Outpatient Steve Nava [facility] [id number] 18:22:00 16:40:00 Luis Alberto 08 2021-08-03 2021-08-04 Outpatient Steve Nava [facility] [id number] 18:22:00 16:40:00 Luis Alberto 2021-07-26 2021-07-26 Leena Watts [facility] 1.2.840.[id number] [place] [address] 00:00:00 00:00:00 Sergey REYEZ 350.1.13.10 ity of [place]2.7.2.[place] PROFESS[place] [phone] Nv dic[address] 2021-07-25 2021-07-25 Office Sarah AMELIA 6410 1.2.840.114 [id number] [place] 10:00:00 10:40:50 Visit Jason [place] 350.1.13.58 Health 9.2.7.2.686 [id number] 5 2021-07-16 2021-07-16 Orders Doctor SIDNEY 1.2.840.114 [id number] Univers 00:00:00 00:00:00 Only Unassigned, REAL 350.1.13.10 ity of [place] [facility] 4.2.7.2.686 Teto as [id number] [address] 2021-07-13 2021-07-13 Telephone Lashell Dangelo [facility] 6410 1.2.840. 114 [id number] [place] 00:00:00 00:00:[address] 350.1.13.58 Health 9.2.7.2.686 [id number] 5 2021-06-27 2021-06-27 Office AMELIA Smith 6410 1.2.840.114 [id number] [place] 11:45:00 12:53:[address] 350.1.13.58 Health 9.2.7.2.686 [id number] 5 2021-06-04 2021-06-04 Orders Doctor SIDNEY 1.2.840.114 [id number] [facility] 00:00:00 00:00:00 Only Unassigned, REAL 350.1.13.10 ity of [place] [facility] 4.2.7.2.686 Teto as [phone] [facility] [address] 2021-05-11 2021-05-11 Outpatient [facility] [id number] [place] 13:30:00 13:30:00 Health 2021-05-11 2021-05-11 Telephone Tarsha Do [facility] 6410 1.2.840. 114 [id number] [place] 00:00:00 00:00:[address] 350.1.13.58 Health 9.2.7.2.686 [id number] 5 2021-05-07 2021-05-07 Transition JUSTIN Vasquez 1.2.840.114 [id number] Univers 00:00:00 00:00:00 of Care Carolynn BERNAL 350.1.13.10 it y [place] [phone] [facility] [address] 2021-04-29 2021-05-04 Inpatient X BRYAN [facility] ANAI [id number] Univers 10:25:00 13:16:00 SETH ity of [facility] 2021-04-29 2021-05-04 [facility] Nurys Wood [facility] 1.2.840.114 [id number] Univers 10:25:00 13:16:00 Encounter Bobbi Everett HEALTH 350.1.13.10 ity of [place], Seth CLEAR 4.2.7.2.686 [facility] [phone] [place] [address] [address] ([facility]) 2021-04-25 2021-04-25 Office AMELIA Smith 6410 1.2.840.114 [id number] [place] 10:30:00 12:57:42 Visit Jason ONTIVEROS 350.1.13.58 [facility] 9.2.7.2.686 [id number] 5 2021-03-17 2021-03-17 Emergency nullFlavo [facility] [id number] Memoria 09:34:51 15:39:[address] 2021-03-17 2021-03-17 Outpatient Lucien, [facility] PL [id number] 03:34:51 09:39:00 [place] [address] 2021-03-17 2021-03-17 Outpatient Lcuien, [facility] [id number] 575 03:34:51 09:39:00 [place] [address] 2021-03-17 2021-03-17 Emergency E LUCIEN, BL MED 7507 MHBL 03:34:00 09:39:00 [facility] 2021-02-28 2021-03-15 Inpatient nullFlavo [facility] [id number] Memoria 22:01:00 20:20:[address] 2021-02-28 2021-03-15 Inpatient MARINA, [facility] MED 1305 [facility] 17:01:00 14:20:00 ISELA 2021-02-28 2021-03-15 Outpatient Marina, [facility] [id number] 17:01:00 14:20:00 Isela 05 [address] 2021-02-28 2021-02-28 Emergency nullFlavo [facility] [id number] Memoria 20:18:36 20:18:[address] 2021-02-28 2021-02-28 Outpatient Marina, [facility] [id number] 17:01:00 17:01:00 Isela 05 [place] 2021-02-28 2021-02-28 Outpatient Tiffanie [facility] [id number] 15:18:36 15:18:00 Brayden Shafer 2021-02-26 2021-02-26 Telephone Tarsha Do [facility] 6410 1.2.840. 114 [id number] [place] 00:00:00 00:00:[address] 350.1.13.58 Health 9.2.7.2.686 [id number] 5 2021-02-26 2021-02-26 Telephone Tarsha Do 6410 1.2.840. 114 [id number] [place] 00:00:00 00:00:[address] 350.1.13.58 Health 9.2.7.2.686 [id number] 5 2021-02-20 2021-02-20 Outpatient SARAH [facility] [id number] [place] 14:00:00 14:00:00 [facility] 2021-02-19 2021-02-19 Telephone Tarsha Do 6410 1.2.840. 114 [id number] [place] 00:00:00 00:00:[address] 350.1.13.58 Health 9.2.7.2.686 [id number] 5 2021-02-19 2021-02-19 Telephone Tarsha Do 6410 1.2.840. 114 [id number] [place] 00:00:00 00:00:[address] 350.1.13.58 Health 9.2.7.2.686 [id number] 5 2021-02-19 2021-02-19 Orders Tarsha Do 6410 1.2.840.11 4 [id number] [place] 00:00:00 00:00:[address] 350.1.13.58 Health 9.2.7.2.686 [id number] 5 2021-02-14 2021-02-14 Office IsmaAMELIA fortune 6410 1.2.840.114 [id number] [place] 13:20:56 13:55:[address] 350.1.13.58 Health 9.2.7.2.686 [id number] 5 2021-02-08 2021-02-08 Orders Tarsha Do [facility] 6410 1.2.840.11 4 [id number] [place] 00:00:00 00:00:[address] 350.1.13.58 Health 9.2.7.2.686 [id number] 5 2021-01-29 2021-01-29 Telephone Johanny Gallardo [facility] 6410 1.2.840 .114 [id number] [place] 00:00:00 00:00:[address] 350.1.13.58 Health 9.2.7.2.686 [id number] 1 2021-01-29 2021-01-29 Telephone Johanny Gallardo [facility] 6410 1.2.840 .114 [id number] [place] 00:00:00 00:00:[address] 350.1.13.58 Health 9.2.7.2.686 [id number] 1 2020-12-15 2021-01-24 Inpatient [facility] [id number] [facility] 22:47:00 02:20:[address] 2020-12-15 2021-01-23 Inpatient U GLORIA, [facility] MED 7505 [facility] 17:47:00 21:20:00 [facility] 2020-12-15 2021-01-23 Outpatient Gloria, [facility] [id number] 17:47:00 21:20:00 [facility] 2021-01-23 2021-01-23 EXT [facility] IP Gloria, EXT MSRDP 1.2.840.114 1 [id number] [place] 00:00:00 00:00:00 [facility] LOCATION 350.1.13.58 H ealth 9.2.7.2.686 [id number] 0 2021-01-23 2021-01-23 [facility]T [facility] IP Gloria, EXT MSRDP 1.2.840.114 1 [id number] [place] 00:00:00 00:00:00 [facility] LOCATION 350.1.13.58 H ealth 9.2.7.2.686 [id number] 0 2021 2021 EXT [facility] IP System, EXT [facility] 1.2.840.114 1 [id number] [place] 00:00:00 00:00:00 Provider LOCATION 350.1.13.58 Health Not In 9.2.7.2.686 [id number] 0 2021 2021 EXT [facility] IP System, EXT [facility] 1.2.840.114 1 [id number] [place] 00:00:00 00:00:00 Provider LOCATION 350.1.13.58 Health Not In 9.2.7.2.686 [id number] 0 2021 2021 EXT MHH IP System, EXT [facility] 1.2.840.114 1 [id number] [place] 00:00:00 00:00:00 Provider LOCATION 350.1.13.58 Health Not In 9.2.7.2.686 [id number] 0 2021 2021 EXT MHH IP System, EXT M[facility] 1.2.840.114 1 [id number] [place] 00:00:00 00:00:00 Provider LOCATION 350.1.13.58 Health Not In 9.2.7.2.686 [id number] 0 2021-01-15 2021-01-15 EXT MHH OP FREET, EXT [facility] 1.2.840.114 1 [id number] [place] 13:19:44 15:19:44 JASON LOCATION 350.1.13.58 H ealth 9.2.7.2.686 [id number] 1 2021-01-15 2021-01-15 EXT MHH OP Freet, EXT [facility] 1.2.840.114 1 [id number] [place] 13:19:44 15:19:44 Jason LOCATION 350.1.13.58 H ealth 9.2.7.2.686 [id number] 1 2021-01-04 2021-01-04 EXT MHH OP FREET, EXT [facility] 1.2.840.114 1 [id number] [place] 12:00:21 12:30:21 JASON LOCATION 350.1.13.58 H ealth 9.2.7.2.686 [id number] 1 2021-01-04 2021-01-04 EXT [facility] OP Freet, EXT [facility] 1.2.840.114 1 [id number] [place] 12:00:21 12:30:21 Jason LOCATION 350.1.13.58 H ealth 9.2.7.2.686 [id number] 1 2021-01-04 2021-01-04 EXT [facility] IP Krupa, EXT MSRDP 1.2.840.114 1 [id number] [place] 00:00:00 00:00:00 Velasquez LOCATION 350.1.13.58 H ealth 9.2.7.2.686 [id number] 0 2021-01-04 2021-01-04 EXT [facility] IP Krupa, EXT MSRDP 1.2.840.114 1 [id number] [place] 00:00:00 00:00:00 Velasquez LOCATION 350.1.13.58 H ealth 9.2.7.2.686 [id number] 0 2021-01-03 2021-01-03 EXT [facility] OP FREET, EXT MSRDP 1.2.840.114 1 [id number] [place] 08:03:05 16:33:05 JASON LOCATION 350.1.13.58 H ealth 9.2.7.2.686 [id number] 1 2021-01-03 2021-01-03 EXT [facility] OP Freet, EXT MSRDP 1.2.840.114 1 [id number] [place] 08:03:05 16:33:05 Jason LOCATION 350.1.13.58 H ealth 9.2.7.2.686 [id number] 1 2020-12-27 2020-12-27 Outpatient [facility] [id number] [place] 14:00:00 14:00:00 Health 2020-12-25 2020-12-25 EXT [facility] IP Freet, EXT MSRDP 1.2.840.114 1 [id number] [place] 00:00:00 00:00:00 Jason LOCATION 350.1.13.58 H ealth 9.2.7.2.686 [id number] 0 2020-12-25 2020-12-25 EXT MHH IP Freet, EXT [facility] 1.2.840.114 1 [id number] [place] 00:00:00 00:00:00 Jason LOCATION 350.1.13.58 H ealth 9.2.7.2.686 [id number] 0 2020-12-22 2020-12-22 EXT MHH OP FREET, EXT [facility] 1.2.840.114 1 [id number] [place] 08:13:13 16:43:13 JASON LOCATION 350.1.13.58 H ealth 9.2.7.2.686 [id number] 1 2020-12-22 2020-12-22 EXT MHH OP Freet, EXT [facility] 1.2.840.114 1 [id number] [place] 08:13:13 16:43:13 Jason LOCATION 350.1.13.58 H ealth 9.2.7.2.686 [id number] 1 2020-12-19 2020-12-19 EXT MHH OP FREET, EXT [facility] 1.2.840.114 1 [id number] [place] 07:45:58 10:45:58 JASON LOCATION 350.1.13.58 H ealth 9.2.7.2.686 [id number] 1 2020-12-19 2020-12-19 EXT MHH OP Freet, EXT [facility] 1.2.840.114 1 [id number] [place] 07:45:58 10:45:58 Jason LOCATION 350.1.13.58 H ealth 9.2.7.2.686 [id number] 1 2020-12-15 2020-12-15 Outpatient Marilia, [facility] [id number] 17:47:00 17:47:00 Sky Greenwood T 2020-12-15 2020-12-15 Outpatient Gloria, [facility] [id number] 17:47:00 17:47:00 Dick 2020-12-15 2020-12-15 Outpatient Ismat, [facility] [id number] 17:47:00 17:47:00 Jasonlucero Conde 2020-12-11 2020-12-12 Outpatient nullFlavo [facility] [id number] Memoria 18:40:00 04:59:59 r Care 04 kristina Mckeon Duy 2020-12-11 2020-12-11 Outpatient VISIT, [facility] MG [id number] 13:40:00 23:59:59 [facility] 2020-12-11 2020-12-11 Outpatient MHIE MHIE [id number] Memoria 13:40:00 13:40:00 04 l [place] 2020-12-06 2020-12-06 Office CapellanAMELIA 6410 1.2.840.114 [id number] [place] 13:32:21 15:57:[address] 350.1.13.58 Health 9.2.7.2.686 [id number] 2020-12-06 2020-12-06 Orders Tarsha Do 6410 1.2.840.11 4 [id number] [place] 00:00:00 00:00:[address] 350.1.13.58 Health 9.2.7.2.686 [id number] 2020-10-23 2020-10-23 Leena Watts [facility] 1.2.840.114 [id number] Univers 00:00:00 00:00:00 Sergey Reyez 350.1.13.10 [place] 4.2.7.2.686 [place] Professio [id number] [address] 2020-10-23 2020-10-23 Refill Stefanie [facility] 1.2.840.114 [id number] 00:00:00 00:00:00 Sergey Reyez 350.1.13.10 [place] 4.2.7.2.686 Professio [phone] [address] 2020-09-15 2020-09-22 Inpatient nullFlavo [facility] [id number] Memoria 20:53:50 22:50:00 r Duy 04 l [facility] 2020-09-15 2020-09-22 Inpatient E DANNY [facility] MED 7504 [facility] 23:47:00 17:50:00 GERALDO 2020-09-15 2020-09-22 Outpatient Danny [facility] [id number] 15:53:50 17:50:00 Geraldo 04 2020-09-15 2020-09-15 Outpatient Abbe [facility] [id number] 15:53:50 15:53:50 Rebeca 04 David 2020-09-15 2020-09-15 EXT [facility] OP Killian, EXT [facility] 1.2.840.114 [id number] [place] 00:00:00 00:00:00 Cirilo I LOCATION 350.1.13.58 H ealth 9.2.7.2.686 [id number] 0 2020-09-15 2020-09-15 EXT MHH OP Killian, EXT MSRDP 1.2.840.114 [id number] [place] 00:00:00 00:00:00 Cirilo I LOCATION 350.1.13.58 H ealth 9.2.7.2.686 [id number] 0 2020-09-13 2020-09-13 Outpatient CONSTANTIN [facility] [id number] [facility] 10:30:00 23:59:00 CIRILO 2020-09-04 2020-09-04 Telephone Stefanie [facility] 1.2.840.114 [id number] [facility] 00:00:00 00:00:00 Sergey Reyez 350.1.13.10 Rober 4.2.7.2.686 [place]wey naidu Professio [phone] [facility] [address] [place] [address] 2020-09-04 2020-09-04 Telephone Stefanie [facility] 1.2.840.114 [id number] 00:00:00 00:00:00 Sergey Reyez 350.1.13.10 [place] 4.2.7.2.686 Professio [phone] [address] 2020-08-25 2020-08-28 Inpatient [facility] [id number] Memoria 21:14:08 23:42:00 r Duy 02 [facility] 2020-08-25 2020-08-28 Inpatient E DANDELIAM, [facility] [id number] [facility] 19:56:00 18:42:00 KARON 2020-08-25 2020-08-28 Outpatient Liseth, [facility] [id number] 16:14:08 18:42:00 Karon Delgado 2020-08-25 2020-08-25 Outpatient Liseth, [facility] [id number] 16:14:08 16:14:08 Karon Delgado 2020-08-15 2020-08-24 Inpatient [facility] [id number] [facility] 19:36:56 00:00:00 r [place] [facility] 2020-08-16 2020-08-23 Inpatient E LISETH, [facility] [id number] [facility] 04:12:00 19:00:00 KARON 2020-08-15 2020-08-23 Outpatient Liseth, [facility] [id number] 14:36:56 19:00:00 Karon Delgado 2020-08-15 2020-08-15 Outpatient Liseth, [facility] [id number] 14:36:56 14:36:56 Karon Delgado 2020-08-15 2020-08-15 Refill Stefanie [facility] 1.2.840.114 [id number] Univers 00:00:00 00:00:00 Sergey Reyez 350.1.13.10 [place] [phone] N[place] dical [address] 2020-08-15 2020-08-15 Refill Stefanie [facility] 1.2.840.114 [id number] 00:00:00 00:00:00 Sergey Reyez 350.1.13.10 [place] 4.2.7.2.686 Professio [id number] [address] 2020-07-21 2020-07-21 Refill Ross Coronado [facility] 1.2.840.114 [id number] Univers 00:00:00 00:00:00 [place] 350.1.13.10 [place] [phone] [place] [id number] [facility] 2020-07-21 2020-07-21 RefRoss Hunter [facility] 1.2.840.114 [id number] 00:00:00 00:00:00 [place] 350.1.13.10 [place] 4.2.7.2.686 Professio [id number] [address] 2020-07-18 2020-07-18 Patient Justin [facility] 1.2.840.114 [id number] Univers 00:00:00 00:00:00 Outreach Tommy PRIMARY 350.1.13.10 i ty of [facility] [place]2.7.2.[place] [phone] [address] 2020-07-18 2020-07-18 [facility] 1.2.840.114 [id number] 00:00:00 00:00:00 Outreach Tommy PRIMARY 350.1.13.10 [place] CARE 4.2.7.2.686 PAVILLION [id number] [facility] 2020-07-03 2020-07-03 [facility] 1.2.840.114 [id number] Univers 00:00:00 00:00:00 Sergey Reyez 350.1.13.10 [place] [phone] [address] 2020-07-03 2020-07-03 [facility] 1.2.840.114 [id number] 00:00:00 00:00:00 Sergey Reyez 350.1.13.10 [place] 4.2.7.2.686 Professio [id number] [address] 2020-06-09 2020-06-09 Orders Doctor LITTLE 1.2.840.114 [id number] Univers 00:00:00 00:00:00 Only Unassigned, REAL 350.1.13.10 ity of [facility] 4.2.7.2.686 [place] as [phone] [address] 2020-06-08 2020-06-08 [facility] 1.2.840.114 [id number] Univers 00:00:00 00:00:00 Sergey Reyez 350.1.13.10 [place] [phone] N[place] dic[address] 2020-06-08 2020-06-08 [facility] 1.2.840.114 [id number] 00:00:00 00:00:00 Sergey Reyez 350.1.13.10 [place] 4.2.7.2.686 Professio [phone] [address] 2020-06-06 2020-06-06 [facility]oche[facility] 1.2.840.114 [id number] Univers 00:00:00 00:00:00 Sergey Reyez 350.1.13.10 [place] [phone] [address] 2020-05-15 2020-05-15 Orders Doctor SIDNEY 1.2.840.114 [id number] Univers 00:00:00 00:00:00 Only Unassigned, REAL 350.1.13.10 ity of [place] [facility] 4.2.7.2.686 Teto as [phone] [address] 2020-04-04 2020-04-04 Orders Doctor SIDNEY 1.2.840.114 [id number] Univers 00:00:00 00:00:00 Only Unassigned, REAL 350.1.13.10 ity of [place] [facility] 4.2.7.2.686 [place] as [phone] [address] 2020-04-03 2020-04-03 [facility] 1.2.840.114 [id number] Univers 00:00:00 00:00:00 Sergey Reyez 350.1.13.10 [place] [phone] [address] 2020-03-14 2020-03-14 Refill Stefanie [facility] 1.2.840.114 [id number] Univers 00:00:00 00:00:00 Sergey Reyez 350.1.13.10 [place] [phone] [address] 2020-02-14 2020-02-14 [facility] 1.2.840.114 [id number] Univers 00:00:00 00:00:00 Sergey Reyez 350.1.13.10 [place] [phone] [address] 2020-02-14 2020-02-14 Orders Doctor SIDNEY 1.2.840.114 [id number] Univers 00:00:00 00:00:00 Only Unassigned, REAL 350.1.13.10 ity of [facility] 4.2.7.2.686 [place] as [phone] [address] 2020-02-14 2020-02-14 [facility] 1.2.840.114 [id number] Univers 00:00:00 00:00:00 Sergey Reyez 350.1.13.10 [place] [phone] [address] 2020-01-24 2020-01-24 Office Stefanie [facility] 1.2.840.114 [id number] Univers 15:40:05 16:14:13 Visit Sergey Reyez 350.1.13.10 [place] [phone] [address] 2020-01-24 2020-01-24 Outpatient R SERGEY WATTS [facility] [id number] Univers 15:40:00 15:40:00 SERGEY WATTS ity [facility] 2020-01-12 2020-01-12 Telephone Stefanie [facility] ..840.114 [id number] Univers 00:00:00 00:00:00 Sergey Reyez 350.1.13.10 [place] [phone] Nv dical nal 092 [facility] 2020-01-07 2020-01-07 Outpatient R SERGEY WATTS [facility] [id number] Univers 15:20:00 15:20:00 SERGEY WATTS jasen [facility] 2020-01-03 2020-01-06 Hospital ER Maureen Steinberg [facility] [id number] [facility] 19:07:01 12:55:00 Encounter [facility] 2020-01-03 2020-01-03 Emergency ER [facility] Emergency [id number] [facility] 18:57:00 18:57:00 2020-01-03 2020-01-03 Orders [facility] [id number] 00:00:00 00:00:00 Only [facility] 2020-01-03 2020-01-03 Travel [facility] [id number] [facility] 00:00:00 00:00:00 [facility] 2019-12-27 2019-12-27 Outpatient R AYSHA-EST [facility] [id number] Univers 10:00:00 10:00:00 bowen ERNANDEZ HILDA [facility] 2019-12-27 2019-12-27 Orders Doctor LITTLE 1..840.114 [id number] Univers 00:00:00 00:00:00 Only Unassigned, REAL 350.1.13.10 ity of [place] [facility] 4.2.7.2.686 [place] as [phone] [address] 2019-12-27 2019-12-27 Refill Stefanie [facility] 1.2.840.114 [id number] Univers 00:00:00 00:00:00 Sergey Reyez 350.1.13.10 [place] [phone] [address] 2019-11-30 2019-11-30 Office Stefanie [facility] 1.2.840.114 [id number] Univers 14:14:45 14:49:08 Visit Sergey Reyez 350.1.13.10 [place] [phone] [address] 2019-11-30 2019-11-30 Outpatient R STEFANIE SER[facility] [id number] Univers 14:20:00 14:20:00 STEFANIE, SERGEY ity of [facility] 2019-11-30 2019-11-30 Telephone Stefanie [facility] 1.2.840.114 [id number] Univers 00:00:00 00:00:00 Sergey Reyez 350.1.13.10 [place] [phone] [address] 2019-11-24 2019-11-24 [facility] 1.2.840.114 [id number] Univers 00:00:00 00:00:00 Sergey Reyez 350.1.13.10 [place] [phone] [address] 2019-11-16 2019-11-16 Orders Doctor LITTLE 1.2.840.114 [id number] Univers 00:00:00 00:00:00 Only Unassigned, REAL 350.1.13.10 ity of [place] [facility] 4.2.7.2.686 [place] as [phone] [address] 2019-10-05 2019-10-05 [facility] 1.2.840.114 [id number] Univers 00:00:00 00:00:00 Sergey Reyez 350.1.13.10 [place] [phone] [address] 2019-10-05 2019-10-05 Orders Doctor SIDNEY 1.2.840.114 [id number] Univers 00:00:00 00:00:00 Only Unassigned, REAL 350.1.13.10 ity of [facility] 4.2.7.2.686 [place] as [phone] [address] 2019-10-04 2019-10-04 [facility] 1.2.840.114 [id number] Univers 00:00:00 00:00:00 Sergey Reyez 350.1.13.10 [place] [phone] [address] 2019-08-13 2019-08-13 Orders Doctor SIDNEY 1.2.840.114 [id number] Univers 00:00:00 00:00:00 Only Unassigned, REAL 350.1.13.10 ity of [facility] 4.2.7.2.686 [place] as [phone] [address] 2019-08-11 2019-08-11 [facility] 1.2.840.114 [id number] Univers 00:00:00 00:00:00 Sergey Reyez 350.1.13.10 [place] [phone] [address] 2019-07-19 2019-07-19 [facility] 1.2.840.114 [id number] Univers 00:00:00 00:00:00 Dereje ernandez 350.1.13.10 i ty [place] [phone] Nv dicny nal [address] [place] [address] 2019-07-09 2019-07-09 Telephone [facility] 1.2.840.114 [id number] Univers 00:00:00 00:00:00 Sergey Reyez 350.1.13.10 [place] [phone] [address] 2019-06-28 2019-06-28 Application Security Developer 2, Adc Lab [facility] 1.2.840.114 [id number] Univers 11:07:24 11:22:24 Visit SheltonAnnHilda Dereje 350. 1.13.10 [place] [phone] Nv dical nal 353 [facility] 2019-06-28 2019-06-28 Office [facility] 1.2.840.114 [id number] Univers 10:00:35 11:01:18 Visit Dereje ernandez 350.1.13.10 i ty [place] [phone] [facility] 092 [facility] 2019-06-28 2019-06-28 Outpatient R [facility] [id number] Univers 10:00:00 10:00:00 AWAIS itbrittani of [facility] 2019-06-21 2019-06-21 Orders Doctor SIDNEY 1.2.840.114 [id number] Univers 00:00:00 00:00:00 Only Unassigned, REAL 350.1.13.10 ity of [place] [facility] 4.2.7.2.686 [place] as [phone] [address] 2019-06-18 2019-06-18 Telephone [facility] 1.2.840.114 [id number] Univers 00:00:00 00:00:00 Sergey Reyez 350.1.13.10 [place] [phone] [facility] 092 [facility] 2019-06-18 2019-06-18 Telephone [facility] 1.2.840.114 [id number] Univers 00:00:00 00:00:00 Sergey Reyez 350.1.13.10 [place] [phone] [facility] 092 [facility] 2019-05-18 2019-05-18 Refill [facility] 1.2.840.114 [id number] Univers 00:00:00 00:00:00 Sergey Reyez 350.1.13.10 [place] [phone] Nv dical nal 092 [facility] 2019-05-17 2019-05-17 Orders Doctor SIDNEY 1.2.840.114 [id number] Univers 00:00:00 00:00:00 Only Unassigned, REAL 350.1.13.10 ity of [place] [facility] 4.2.7.2.686 [place] as [phone] [address] 2019-01-08 2019-01-08 Orders Doctor SIDNEY 1.2.840.114 [id number] Univers 00:00:00 00:00:00 Only Unassigned, REAL 350.1.13.10 ity of [place] [facility] 4.2.7.2.686 [place] as [phone] [address] 2019-01-06 2019-01-06 [facility] 1.2.840.114 [id number] Univers 00:00:00 00:00:00 Sergey Reyez 350.1.13.10 [place] [phone] [address] 2018-12-30 2018-12-31 Outpatient nullFlavo [id number] Memoria 20:06:00 04:59:00 r Radiation 41 l Scottie Gordillo ([facility]) 2018-12-30 2018-12-30 Outpatient Constantin DANIELLE [facility] [id number] 15:06:00 23:59:00 Cirilo 41 Gildardo 2018-12-30 2018-12-30 Outpatient [facility] [id number] [facility] 15:06:00 15:06:00 2018-12-29 2018-12-30 Outpt Diag nullFlavo [facility] [id number] Memoria 17:52:00 04:59:00 Services r Outpatient 01 l Socrates Conway 2018-12-29 2018-12-29 Outpatient PAULINE Boogie [facility] [id number] 12:52:00 23:59:00 Karen Jacob 2018-12-14 2018-12-14 Refill Stefanie [facility] 1.2.840.114 [id number] Univers 00:00:00 00:00:00 Sergey Reyez 350.1.13.10 [place] [phone] [address] 2018-12-14 2018-12-14 Orders Doctor SIDNEY 1.2.840.114 [id number] Univers 00:00:00 00:00:00 Only Unassigned, REAL 350.1.13.10 ity of [facility] 4.2.7.2.686 Teto as [phone] [address] 2018-11-27 2018-11-27 Rafael Watts [facility] 1.2.840.114 [id number] Univers 00:00:00 00:00:00 Sergey Reyez 350.1.13.10 [place] [phone] [address] 2018-11-27 2018-11-27 Orders Doctor SIDNEY 1.2.840.114 [id number] Univers 00:00:00 00:00:00 Only Unassigned, REAL 350.1.13.10 ity of [place] [facility] 4.2.7.2.686 Teto as [phone] [address] 2018-09-08 2018-09-09 Outpatient nullFlavo MNA [id number] Memoria 18:30:00 04:59:59 r Neurosurger 03 l y [facility] 2018-09-08 2018-09-08 Outpatient Yosef Elizondo MHMISCHER MHMISCHER [id number] 13:30:00 23:59:59 03 2018-09-08 2018-09-08 Outpatient MHIE MHIE [id number] Memoria 13:30:00 13:30:00 [facility] 2018-09-01 2018-09-03 Phone nullFlavo MNA [id number] Memoria 14:00:12 04:59:59 Message r Neurosurger 06 l brittani [facility] 2018-09-01 2018-09-03 Phone nullFlavo MNA [id number] Memoria 13:54:03 04:59:59 Message r Neurosurger 05 l y [facility] 2018-09-01 2018-09-02 Outpatient MHMISCHER MHMISCHER [id number] 09:00:12 23:59:59 06 2018-09-01 2018-09-02 Outpatient MHMISCHER MHMISCHER [id number] 08:54:03 23:59:59 2018-08-27 2018-08-29 Inpatient nullFlavo [facility] [id number] Memoria 13:45:00 16:00:00 r [place] 00 [facility] 2018-08-27 2018-08-29 Outpatient Yosef Elizondo [facility] [id number] 08:45:00 11:00:00 2018-08-27 2018-08-28 Outpatient nullFlavo MNA [id number] Memoria 16:00:00 04:59:59 r Neurosurger 01 l [facility] 2018-08-27 2018-08-27 Outpatient Yosef Elizondo MHMISCHER MHMISCHER [id number] 11:00:00 23:59:59 2018-08-27 2018-08-27 Outpatient MHIE MHIE [id number] Memoria 11:00:00 11:00:00 01 [facility] 2018-08-25 2018-08-26 Outpatient nullFlavo MNA [id number] Memoria 18:30:00 04:59:59 r Neurosurger 02 l [facility] 2018-08-25 2018-08-25 Outpatient Yosef Elizondo MHMISCHER MHMISCHER [id number] 13:30:00 23:59:59 2018-08-25 2018-08-25 Outpatient MHIE MHIE [id number] Memoria 13:30:00 13:30:00 02 [facility] 2018-08-24 2018-08-25 Outpt Diag nullFlavo [facility] [id number] Memoria 18:38:00 04:59:00 Services r Outpatient 00 l Socrates Conway 2018-08-24 2018-08-24 Outpatient Yosef Elizondo [place] [id number] 13:38:00 23:59:00 2018-08-21 2018-08-23 Phone nullFlavo MNA [id number] Memoria 20:43:00 04:59:59 Message r Neurosurger 04 l y [facility] 2018-08-21 2018-08-22 Outpatient MHMISCHER MHMISCHER [id number] 15:43:00 23:59:59 2018-08-13 2018-08-15 Phone nullFlavo MNA [id number] Memoria 20:46:00 04:59:59 Message r Neurosurger 03 l y [facility] 2018-08-13 2018-08-14 Outpatient MHMISCHER MHMISCHER [id number] 15:46:00 23:59:59 2018-08-11 2018-08-13 Phone nullFlavo MNA [id number] Memoria 15:16:00 04:59:59 Message r Neurosurger 02 l y [facility] 2018-08-11 2018-08-12 Outpatient MHMISCHER MHMISCHER [id number] 10:16:00 23:59:59 2018-07-22 2018-07-24 Phone nullFlavo MNA [id number] Memoria 21:09:00 04:59:59 Message r Neurosurger 01 l y [facility] 2018-07-22 2018-07-23 Outpatient MHMISCHER MHMISCHER [id number] 16:09:00 23:59:59 2018-07-21 2018-07-22 Outpatient nullFlavo MNA [id number] Memoria 21:00:00 04:59:59 r Neurosurger 00 l y [facility] 2018-07-20 2018-07-22 Phone nullFlavo MNA [id number] Memoria 15:38:00 04:59:59 Message r Neurosurger 00 l y [facility] 2018-07-21 2018-07-21 Outpatient Yosef Elizondo MHMISCHER MHMISCHER [id number] 16:00:00 23:59:59 2018-07-20 2018-07-21 Outpatient MHMISCHER MHMISCHER [id number] 10:38:00 23:59:59 2018-07-21 2018-07-21 Outpatient MHIE MHIE [id number] [facility] 16:00:00 16:00:00 00 kristina Gordillo Results Test Description Test Time Test Comments Results Result Comments Source RADT 2022-08-02 21:37:32 Test Item Value Reference Range Interpretation Comme nts RADRPT (test code = RADRPT) Brain wo contrast CT , 08/02/2022 15:25.C LINICAL INDICATION:57 years Female - Skull defect, status post reconstruction, open wound, laceration of scalpComparison: 03/14/2021TECHNIQUE: Noncontrast images of the brain are obtained from the skull base to the vertex. Axial, sagittal, and coronal images are interpreted. 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 There is overlying flap reconstruction with interval erosion of the outer table bifrontal bone along the convexity and slight widening of the superior medial craniotomy margin. There is dehiscence over the midline frontal bone convexity with fat covering portions of the superior sagittal sinus best seen in coronal image 26-30. The overlying scalp reconstruction fat appears clean, improved from prior suggesting this may be chronic. No evidence of extra-axial collection, interval cerebral edema, mass effect, or acute hemorrhage. CEREBELLOPONTINE REGIONS AND SKULL BASE: No evidence of fracture or significant scalp hematoma. The cerebellopontine angles appear unremarkable. No skull base abnormality is seen.VENTRICLES/SULCI/CISTERNS: Ex vacuo dilatation of the left frontal horn again noted.. The basal cisterns are patent.VISUALIZED ORBITS, PARANASAL SINUSES AND MASTOIDS: Paranasal sinuses are clear. The mastoid air cells are clear. No orbital pathology is seen.IMPRESSION:There is interval erosion of the outer table of bilateral frontal bones with dehiscence overlying the superior sagittal sinus at the frontal convexity. The overlying fat of the flap reconstruction now appears clean and probably treated, although residual osteomyelitis is not excluded. No intracranial change or acute abnormalities seen by CT. [id number] 21:37:32 Test Item Value Reference Range Interpretation Comments RADRPT (test code Brain wo contrast CT , = RADRPT) 08/02/2022 15:25.CLINICAL INDICATION:57 years Female - Skull defect, status post reconstruction, open wound, laceration of scalpComparison: 03/14/2021TECHNIQUE: Noncontrast images of the brain are obtained from the skull base to the vertex. Axial, sagittal, and coronal images are interpreted. 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 There is overlying flap reconstruction with interval erosion of the outer table bifrontal bone along the convexity and slight widening of the superior medial craniotomy margin. There is dehiscence over the midline frontal bone convexity with fat covering portions of the superior sagittal sinus best seen in coronal image 26-30. The overlying scalp reconstruction fat appears clean, improved from prior suggesting this may be chronic. No evidence of extra-axial collection, interval cerebral edema, mass effect, or acute hemorrhage. CEREBELLOPONTINE REGIONS AND SKULL BASE: No evidence of fracture or significant scalp hematoma. The cerebellopontine angles appear unremarkable. No skull base abnormality is seen.VENTRICLES/SULCI/CISTE RNS: Ex vacuo dilatation of the left frontal horn again noted.. The basal cisterns are patent.VISUALIZED ORBITS, PARANASAL SINUSES AND MASTOIDS: Paranasal sinuses are clear. The mastoid air cells are clear. No orbital pathology is seen.IMPRESSION:There is interval erosion of the outer table of bilateral frontal bones with dehiscence overlying the superior sagittal sinus at the frontal convexity. The overlying fat of the flap reconstruction now appears clean and probably treated, although residual osteomyelitis is not excluded. No intracranial change or acute abnormalities seen by CT. [id number] 21:37:32 Test Item Value Reference Range Interpretation Comments RADRPT (test code Brain wo contrast CT , = RADRPT) 08/02/2022 15:25.CLINICAL INDICATION:57 years Female - Skull defect, status post reconstruction, open wound, laceration of scalpComparison: 03/14/2021TECHNIQUE: Noncontrast images of the brain are obtained from the skull base to the vertex. Axial, sagittal, and coronal images are interpreted. 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 There is overlying flap reconstruction with interval erosion of the outer table bifrontal bone along the convexity and slight widening of the superior medial craniotomy margin. There is dehiscence over the midline frontal bone convexity with fat covering portions of the superior sagittal sinus best seen in coronal image 26-30. The overlying scalp reconstruction fat appears clean, improved from prior suggesting this may be chronic. No evidence of extra-axial collection, interval cerebral edema, mass effect, or acute hemorrhage. CEREBELLOPONTINE REGIONS AND SKULL BASE: No evidence of fracture or significant scalp hematoma. The cerebellopontine angles appear unremarkable. No skull base abnormality is seen.VENTRICLES/SULCI/CISTE RNS: Ex vacuo dilatation of the left frontal horn again noted.. The basal cisterns are patent.VISUALIZED ORBITS, PARANASAL SINUSES AND MASTOIDS: Paranasal sinuses are clear. The mastoid air cells are clear. No orbital pathology is seen.IMPRESSION:There is interval erosion of the outer table of bilateral frontal bones with dehiscence overlying the superior sagittal sinus at the frontal convexity. The overlying fat of the flap reconstruction now appears clean and probably treated, although residual osteomyelitis is not excluded. No intracranial change or acute abnormalities seen by CT. [id number] 21:37:32 Test Item Value Reference Range Interpretation Comments RADRPT (test code Brain wo contrast CT , = RADRPT) 08/02/2022 15:25.CLINICAL INDICATION:57 years Female - Skull defect, status post reconstruction, open wound, laceration of scalpComparison: 03/14/2021TECHNIQUE: Noncontrast images of the brain are obtained from the skull base to the vertex. Axial, sagittal, and coronal images are interpreted. 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 There is overlying flap reconstruction with interval erosion of the outer table bifrontal bone along the convexity and slight widening of the superior medial craniotomy margin. There is dehiscence over the midline frontal bone convexity with fat covering portions of the superior sagittal sinus best seen in coronal image 26-30. The overlying scalp reconstruction fat appears clean, improved from prior suggesting this may be chronic. No evidence of extra-axial collection, interval cerebral edema, mass effect, or acute hemorrhage. CEREBELLOPONTINE REGIONS AND SKULL BASE: No evidence of fracture or significant scalp hematoma. The cerebellopontine angles appear unremarkable. No skull base abnormality is seen.VENTRICLES/SULCI/CISTE RNS: Ex vacuo dilatation of the left frontal horn again noted.. The basal cisterns are patent.VISUALIZED ORBITS, PARANASAL SINUSES AND MASTOIDS: Paranasal sinuses are clear. The mastoid air cells are clear. No orbital pathology is seen.IMPRESSION:There is interval erosion of the outer table of bilateral frontal bones with dehiscence overlying the superior sagittal sinus at the frontal convexity. The overlying fat of the flap reconstruction now appears clean and probably treated, although residual osteomyelitis is not excluded. No intracranial change or acute abnormalities seen by CT. [facility] [id number] 21:37:32 Test Item Value Reference Range Interpretation Comments RADRPT (test code Brain wo contrast CT , = RADRPT) 08/02/2022 15:25.CLINICAL INDICATION:57 years Female - Skull defect, status post reconstruction, open wound, laceration of scalpComparison: 03/14/2021TECHNIQUE: Noncontrast images of the brain are obtained from the skull base to the vertex. Axial, sagittal, and coronal images are interpreted. 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 There is overlying flap reconstruction with interval erosion of the outer table bifrontal bone along the convexity and slight widening of the superior medial craniotomy margin. There is dehiscence over the midline frontal bone convexity with fat covering portions of the superior sagittal sinus best seen in coronal image 26-30. The overlying scalp reconstruction fat appears clean, improved from prior suggesting this may be chronic. No evidence of extra-axial collection, interval cerebral edema, mass effect, or acute hemorrhage. CEREBELLOPONTINE REGIONS AND SKULL BASE: No evidence of fracture or significant scalp hematoma. The cerebellopontine angles appear unremarkable. No skull base abnormality is seen.VENTRICLES/SULCI/CISTE RNS: Ex vacuo dilatation of the left frontal horn again noted.. The basal cisterns are patent.VISUALIZED ORBITS, PARANASAL SINUSES AND MASTOIDS: Paranasal sinuses are clear. The mastoid air cells are clear. No orbital pathology is seen.IMPRESSION:There is interval erosion of the outer table of bilateral frontal bones with dehiscence overlying the superior sagittal sinus at the frontal convexity. The overlying fat of the flap reconstruction now appears clean and probably treated, although residual osteomyelitis is not excluded. No intracranial change or acute abnormalities seen by CT. [id number] 21:37:32 Test Item Value Reference Range Interpretation Comments RADRPT (test code Brain wo contrast CT , = RADRPT) 08/02/2022 15:25.CLINICAL INDICATION:57 years Female - Skull defect, status post reconstruction, open wound, laceration of scalpComparison: 03/14/2021TECHNIQUE: Noncontrast images of the brain are obtained from the skull base to the vertex. Axial, sagittal, and coronal images are interpreted. 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 There is overlying flap reconstruction with interval erosion of the outer table bifrontal bone along the convexity and slight widening of the superior medial craniotomy margin. There is dehiscence over the midline frontal bone convexity with fat covering portions of the superior sagittal sinus best seen in coronal image 26-30. The overlying scalp reconstruction fat appears clean, improved from prior suggesting this may be chronic. No evidence of extra-axial collection, interval cerebral edema, mass effect, or acute hemorrhage. CEREBELLOPONTINE REGIONS AND SKULL BASE: No evidence of fracture or significant scalp hematoma. The cerebellopontine angles appear unremarkable. No skull base abnormality is seen.VENTRICLES/SULCI/CISTE RNS: Ex vacuo dilatation of the left frontal horn again noted.. The basal cisterns are patent.VISUALIZED ORBITS, PARANASAL SINUSES AND MASTOIDS: Paranasal sinuses are clear. The mastoid air cells are clear. No orbital pathology is seen.IMPRESSION:There is interval erosion of the outer table of bilateral frontal bones with dehiscence overlying the superior sagittal sinus at the frontal convexity. The overlying fat of the flap reconstruction now appears clean and probably treated, although residual osteomyelitis is not excluded. No intracranial change or acute abnormalities seen by CT. [facility]2022-08-06 10:59:00 Test Item Value Reference Range Interpretation Comments Glucose Lvl (test code = Glucose Lvl) 99 70-99 [facility]2022-08-06 10:59:00 Test Item Value Reference Range Interpretation Comments BUN (test code = BUN) 24 7-22 [facility]2022-08-06 10:59:00 Test Item Value Reference Range Interpretation Comments Creatinine Lvl (test code = Creatinine 0.68 0.50-1.40 Lvl) [facility]2022-08-06 10:59:00 Test Item Value Reference Range Interpretation Comments Sodium Lvl (test code = Sodium Lvl) 144 135-145 [facility]2022-08-06 10:59:00 Test Item Value Reference Range Interpretation Comments Potassium Lvl (test code = Potassium 4.1 3.5-5.1 Lvl) [facility]2022-08-06 10:59:00 Test Item Value Reference Range Interpretation Comments Chloride Lvl (test code = Chloride Lvl) 113 95-109 [facility]2022-08-06 10:59:00 Test Item Value Reference Range Interpretation Comments CO2 (test code = CO2) 25 24-32 [facility]2022-08-06 10:59:00 Test Item Value Reference Range Interpretation Comments Calcium Lvl (test code = Calcium Lvl) 8.9 8.5-10.5 [place] 663522-08-06 10:59:00 Test Item Value Reference Range Interpretation Comments Total Protein (test code = Total 6.3 6.4-8.4 Protein) [facility]2022-08-06 10:59:00 Test Item Value Reference Range Interpretation Comments Albumin Lvl (test code = Albumin Lvl) 2.7 3.5-5.0 [place] 663522-08-06 10:59:00 Test Item Value Reference Range Interpretation Comments ALT (test code = ALT) 23 <=65 [place] 663522-08-06 10:59:00 Test Item Value Reference Range Interpretation Comments AST (test code = AST) 22 <=37 [place] 663522-08-06 10:59:00 Test Item Value Reference Range Interpretation Comments Alk Phos (test code = Alk Phos) 73 39-136 [place] 663522-08-06 10:59:00 Test Item Value Reference Range Interpretation Comments Bili Total (test code = Bili Total) 0.3 0.2-1.3 [place] 663522-08-06 10:59:00 Test Item Value Reference Range Interpretation Comments AGAP (test code = AGAP) 10.1 10.0-20.0 [place] 663522-08-06 10:59:00 Test Item Value Reference Range Interpretation Comments B/C Ratio (test code = B/C Ratio) 35 1 6-25 [place] [address]-08-06 10:59:00 Test Item Value Reference Range Interpretation Comments Globulin (test code = Globulin) 3.6 2.7-4.2 [place] 663522-08-06 10:59:00 Test Item Value Reference Range Interpretation Comments A/G Ratio (test code = A/G Ratio) 0.8 1 0.7-1.6 [place] 663522-08-06 10:59:00 Test Item Value Reference Range Interpretation Comments eGFR (test code = eGFR) 102 [place] 747592-08-06 10:59:00 Test Item Value Reference Range Interpretation Comments Segs (test code = Segs) 62.6 45.0-75.0 [place] 747592-08-06 10:59:00 Test Item Value Reference Range Interpretation Comments Lymphocytes (test code = Lymphocytes) 26.0 20.0-40.0 [place] 747592-08-06 10:59:00 Test Item Value Reference Range Interpretation Comments Monocytes (test code = Monocytes) 10.0 2.0-12.0 [place] [address]-08-06 10:59:00 Test Item Value Reference Range Interpretation Comments Eosinophils (test code = Eosinophils) 0.9 <=4.0 [place] [address]-08-06 10:59:00 Test Item Value Reference Range Interpretation Comments Basophils (test code = Basophils) 0.5 <=1.0 [place] 747592-08-06 10:59:00 Test Item Value Reference Range Interpretation Comments Neutrophils # (test code = Neutrophils 5.3 1.5-8.1 #) [facility]ressFrkgvrfOBQVIAOLWL6338-75-18 10:59:00 Test Item Value Reference Range Interpretation Comments Lymphocytes # (test code = Lymphocytes 2.2 1.0-5.5 #) [facility] CypressHnjmnodMITFBDOGYB3365-28-17 10:59:00 Test Item Value Reference Range Interpretation Comments Monocytes # (test code = Monocytes #) 0.8 <=0.8 [place] 747592-08-06 10:59:00 Test Item Value Reference Range Interpretation Comments Eosinophils # (test code = Eosinophils 0.1 <=0.5 #) [facility] CypressValvnotGHLLNQCWLO0079-55-65 10:59:00 Test Item Value Reference Range Interpretation Comments WBC (test code = WBC) 8.4 3.7-10.4 [place] 747592-08-06 10:59:00 Test Item Value Reference Range Interpretation Comments RBC (test code = RBC) 3.64 4.20-5.40 [place] 747592-08-06 10:59:00 Test Item Value Reference Range Interpretation Comments Hgb (test code = Hgb) 10.6 12.0-16.0 [place] [address]-08-06 10:59:00 Test Item Value Reference Range Interpretation Comments Hct (test code = Hct) 32.1 36.0-48.0 [place] [address]-08-06 10:59:00 Test Item Value Reference Range Interpretation Comments MCV (test code = MCV) 88.3 80.0-98.0 [place] [address]-08-06 10:59:00 Test Item Value Reference Range Interpretation Comments MCH (test code = MCH) 29.2 pg 27.0-31.0 [place] [address]-08-06 10:59:00 Test Item Value Reference Range Interpretation Comments MCHC (test code = MCHC) 33.1 32.0-36.0 [place] [address]-08-06 10:59:00 Test Item Value Reference Range Interpretation Comments RDW (test code = RDW) 14.2 11.5-14.5 [place] [address]-08-06 10:59:00 Test Item Value Reference Range Interpretation Comments Platelet (test code = Platelet) 341 133-450 [place] 747592-08-06 10:59:00 Test Item Value Reference Range Interpretation Comments MPV (test code = MPV) 8.3 7.4-10.4 [place] 663522-08-06 10:59:00 Test Item Value Reference Range Interpretation Comments Glucose Lvl (test code = Glucose Lvl) 99 70-99 [place] 663522-08-06 10:59:00 Test Item Value Reference Range Interpretation Comments BUN (test code = BUN) 24 7-22 [facility]2022-08-06 10:59:00 Test Item Value Reference Range Interpretation Comments Creatinine Lvl (test code = Creatinine 0.68 0.50-1.40 Lvl) [facility]2022-08-06 10:59:00 Test Item Value Reference Range Interpretation Comments Sodium Lvl (test code = Sodium Lvl) 144 135-145 [facility]2022-08-06 10:59:00 Test Item Value Reference Range Interpretation Comments Potassium Lvl (test code = Potassium 4.1 3.5-5.1 Lvl) [facility]2022-08-06 10:59:00 Test Item Value Reference Range Interpretation Comments Chloride Lvl (test code = Chloride Lvl) 113 95-109 [place] 663522-08-06 10:59:00 Test Item Value Reference Range Interpretation Comments CO2 (test code = CO2) 25 24-32 [place] 663522-08-06 10:59:00 Test Item Value Reference Range Interpretation Comments Calcium Lvl (test code = Calcium Lvl) 8.9 8.5-10.5 [place] 663522-08-06 10:59:00 Test Item Value Reference Range Interpretation Comments Total Protein (test code = Total 6.3 6.4-8.4 Protein) [place] 663522-08-06 10:59:00 Test Item Value Reference Range Interpretation Comments Albumin Lvl (test code = Albumin Lvl) 2.7 3.5-5.0 [place] 663522-08-06 10:59:00 Test Item Value Reference Range Interpretation Comments ALT (test code = ALT) 23 See_Comment [Auto mated message] The system which ge nerated this result transmit gill reference range : <=65. The reference range was not used to interpr et this result as len l/abnormal. [place] 663522-08-06 10:59:00 Test Item Value Reference Range Interpretation Comments AST (test code = AST) 22 See_Comment [Auto mated message] The system which ge nerated this result transmit gill reference range : <=37. The reference range was not used to interpr et this result as len l/abnormal. [facility]2022-08-06 10:59:00 Test Item Value Reference Range Interpretation Comments Alk Phos (test code = Alk Phos) 73 39-136 [facility]2022-08-06 10:59:00 Test Item Value Reference Range Interpretation Comments Bili Total (test code = Bili Total) 0.3 0.2-1.3 [facility]2022-08-06 10:59:00 Test Item Value Reference Range Interpretation Comments AGAP (test code = AGAP) 10.1 10.0-20.0 [place] 663522-08-06 10:59:00 Test Item Value Reference Range Interpretation Comments B/C Ratio (test code = B/C Ratio) 35 1 6-25 [place] 663522-08-06 10:59:00 Test Item Value Reference Range Interpretation Comments Globulin (test code = Globulin) 3.6 2.7-4.2 [place] 663522-08-06 10:59:00 Test Item Value Reference Range Interpretation Comments A/G Ratio (test code = A/G Ratio) 0.8 1 0.7-1.6 [place] [address]-08-06 10:59:00 Test Item Value Reference Range Interpretation Comments eGFR (test code = eGFR) 102 [facility]ressOjqvfynZAXUWFUBJZ8566-58-13 10:59:00 Test Item Value Reference Range Interpretation Comments Segs (test code = Segs) 62.6 45.0-75.0 [place] 747592-08-06 10:59:00 Test Item Value Reference Range Interpretation Comments Lymphocytes (test code = Lymphocytes) 26.0 20.0-40.0 [place] 747592-08-06 10:59:00 Test Item Value Reference Range Interpretation Comments Monocytes (test code = Monocytes) 10.0 2.0-12.0 [place] 747592-08-06 10:59:00 Test Item Value Reference Range Interpretation Comments Eosinophils (test code = 0.9 See_Comment [A utomated message] The Eosinophils) system which ge nerated this result tra nsmitted reference range : <=4.0. The reference r abdifatah was not used to int erpret this result as normal/abnormal . [place] 747592-08-06 10:59:00 Test Item Value Reference Range Interpretation Comments Basophils (test code = 0.5 See_Comment [Aut omated message] The Basophils) system which ge nerated this result tra nsmitted reference range : <=1.0. The reference r abdifatah was not used to int erpret this result as normal/abnormal . [facility] CypressBbouncvEYPTRQVUBW9388-48-40 10:59:00 Test Item Value Reference Range Interpretation Comments Neutrophils # (test code = Neutrophils 5.3 1.5-8.1 #) [place] 747592-08-06 10:59:00 Test Item Value Reference Range Interpretation Comments Lymphocytes # (test code = Lymphocytes 2.2 1.0-5.5 #) [place] 747592-08-06 10:59:00 Test Item Value Reference Range Interpretation Comments Monocytes # (test code 0.8 See_Comment [Aut omated message] The = Monocytes #) system which generated this result tra nsmitted reference range : <=0.8. The reference r abdifatah was not used to int erpret this result as normal/abnormal . [place] 747592-08-06 10:59:00 Test Item Value Reference Range Interpretation Comments Eosinophils # (test code 0.1 See_Comment [A utomated message] The = Eosinophils #) system whic h generated this result tra nsmitted reference range : <=0.5. The reference r abdifatah was not used to int erpret this result as normal/abnormal . [facility] CypressMqefebwTDDGVQSMAN2852-98-92 10:59:00 Test Item Value Reference Range Interpretation Comments WBC (test code = WBC) 8.4 3.7-10.4 [facility] CypressGctcebuTKRIEWQKOY2560-69-07 10:59:00 Test Item Value Reference Range Interpretation Comments RBC (test code = RBC) 3.64 4.20-5.40 [facility] CypressBmilpmuVDFRVMKHKC7945-38-29 10:59:00 Test Item Value Reference Range Interpretation Comments Hgb (test code = Hgb) 10.6 12.0-16.0 [facility] CypressWqobvwyTVYQERCSUT4086-05-53 10:59:00 Test Item Value Reference Range Interpretation Comments Hct (test code = Hct) 32.1 36.0-48.0 [facility] CypressYnkuonyJMDRUPMMFX0976-35-41 10:59:00 Test Item Value Reference Range Interpretation Comments MCV (test code = MCV) 88.3 80.0-98.0 [place] 747592-08-06 10:59:00 Test Item Value Reference Range Interpretation Comments MCH (test code = MCH) 29.2 pg 27.0-31.0 [facility] CypressGatlrivLGRQKOEVPU5293-66-30 10:59:00 Test Item Value Reference Range Interpretation Comments MCHC (test code = MCHC) 33.1 32.0-36.0 [facility] CypressEqxhsixADOHDOHOWN5657-72-34 10:59:00 Test Item Value Reference Range Interpretation Comments RDW (test code = RDW) 14.2 11.5-14.5 [facility] CypressPkdlkydKEYRPUXBOQ0090-43-82 10:59:00 Test Item Value Reference Range Interpretation Comments Platelet (test code = Platelet) 341 133-450 [facility] CypressNyzhfpaDMBXNFDHMZ4921-74-36 10:59:00 Test Item Value Reference Range Interpretation Comments MPV (test code = MPV) 8.3 7.4-10.4 [facility]2022-08-06 10:59:00 Test Item Value Reference Range Interpretation Comments Glucose Lvl (test code = Glucose Lvl) 99 70-99 [facility]2022-08-06 10:59:00 Test Item Value Reference Range Interpretation Comments BUN (test code = BUN) 24 7-22 [facility]2022-08-06 10:59:00 Test Item Value Reference Range Interpretation Comments Creatinine Lvl (test code = Creatinine 0.68 0.50-1.40 Lvl) [place] 663522-08-06 10:59:00 Test Item Value Reference Range Interpretation Comments Sodium Lvl (test code = Sodium Lvl) 144 135-145 [place] 663522-08-06 10:59:00 Test Item Value Reference Range Interpretation Comments Potassium Lvl (test code = Potassium 4.1 3.5-5.1 Lvl) [place] 663522-08-06 10:59:00 Test Item Value Reference Range Interpretation Comments Chloride Lvl (test code = Chloride Lvl) 113 95-109 [place] 663522-08-06 10:59:00 Test Item Value Reference Range Interpretation Comments CO2 (test code = CO2) 25 24-32 [place] 663522-08-06 10:59:00 Test Item Value Reference Range Interpretation Comments Calcium Lvl (test code = Calcium Lvl) 8.9 8.5-10.5 [place] 663522-08-06 10:59:00 Test Item Value Reference Range Interpretation Comments Total Protein (test code = Total 6.3 6.4-8.4 Protein) [place] 663522-08-06 10:59:00 Test Item Value Reference Range Interpretation Comments Albumin Lvl (test code = Albumin Lvl) 2.7 3.5-5.0 [place] 663522-08-06 10:59:00 Test Item Value Reference Range Interpretation Comments ALT (test code = ALT) 23 See_Comment [Auto mated message] The system which ge nerated this result transmit gill reference range : <=65. The reference range was not used to interpr et this result as len l/abnormal. [place] 663522-08-06 10:59:00 Test Item Value Reference Range Interpretation Comments AST (test code = AST) 22 See_Comment [Auto mated message] The system which ge nerated this result transmit gill reference range : <=37. The reference range was not used to interpr et this result as len l/abnormal. [place] 663522-08-06 10:59:00 Test Item Value Reference Range Interpretation Comments Alk Phos (test code = Alk Phos) 73 39-136 [place] 663522-08-06 10:59:00 Test Item Value Reference Range Interpretation Comments Bili Total (test code = Bili Total) 0.3 0.2-1.3 [facility]2022-08-06 10:59:00 Test Item Value Reference Range Interpretation Comments AGAP (test code = AGAP) 10.1 10.0-20.0 [place] 663522-08-06 10:59:00 Test Item Value Reference Range Interpretation Comments B/C Ratio (test code = B/C Ratio) 35 1 6-25 [place] 663522-08-06 10:59:00 Test Item Value Reference Range Interpretation Comments Globulin (test code = Globulin) 3.6 2.7-4.2 [place] 663522-08-06 10:59:00 Test Item Value Reference Range Interpretation Comments A/G Ratio (test code = A/G Ratio) 0.8 1 0.7-1.6 [place] 663522-08-06 10:59:00 Test Item Value Reference Range Interpretation Comments eGFR (test code = eGFR) 102 [facility] CypressGvsqbogKBVODATUWT3496-70-44 10:59:00 Test Item Value Reference Range Interpretation Comments Segs (test code = Segs) 62.6 45.0-75.0 [place] 747592-08-06 10:59:00 Test Item Value Reference Range Interpretation Comments Lymphocytes (test code = Lymphocytes) 26.0 20.0-40.0 [place] 747592-08-06 10:59:00 Test Item Value Reference Range Interpretation Comments Monocytes (test code = Monocytes) 10.0 2.0-12.0 [place] [address]-08-06 10:59:00 Test Item Value Reference Range Interpretation Comments Eosinophils (test code = 0.9 See_Comment [A utomated message] The Eosinophils) system which ge nerated this result tra nsmitted reference range : <=4.0. The reference r abdifatah was not used to int erpret this result as normal/abnormal . [facility] CypressGnuklynYRHNJDOAJA1297-54-43 10:59:00 Test Item Value Reference Range Interpretation Comments Basophils (test code = 0.5 See_Comment [Aut omated message] The Basophils) system which ge nerated this result tra nsmitted reference range : <=1.0. The reference r abdifatah was not used to int erpret this result as normal/abnormal . [facility] CypressDgiabblRRIJYXVZNR6199-95-16 10:59:00 Test Item Value Reference Range Interpretation Comments Neutrophils # (test code = Neutrophils 5.3 1.5-8.1 #) [facility] CypressGmflaxmMLBKCUIDAS0634-60-13 10:59:00 Test Item Value Reference Range Interpretation Comments Lymphocytes # (test code = Lymphocytes 2.2 1.0-5.5 #) [facility] CypressHalqgipFZTVNWUXFX8114-68-49 10:59:00 Test Item Value Reference Range Interpretation Comments Monocytes # (test code 0.8 See_Comment [Aut omated message] The = Monocytes #) system which generated this result tra nsmitted reference range : <=0.8. The reference r abdifatah was not used to int erpret this result as normal/abnormal . [facility] CypressJwetlrkKPBQPLNKYE6828-41-63 10:59:00 Test Item Value Reference Range Interpretation Comments Eosinophils # (test code 0.1 See_Comment [A utomated message] The = Eosinophils #) system whic h generated this result tra nsmitted reference range : <=0.5. The reference r abdifatah was not used to int erpret this result as normal/abnormal . [facility] CypressRjkbfhvOSDRUMRNPH4348-99-77 10:59:00 Test Item Value Reference Range Interpretation Comments WBC (test code = WBC) 8.4 3.7-10.4 [place] 747592-08-06 10:59:00 Test Item Value Reference Range Interpretation Comments RBC (test code = RBC) 3.64 4.20-5.40 [place] 747592-08-06 10:59:00 Test Item Value Reference Range Interpretation Comments Hgb (test code = Hgb) 10.6 12.0-16.0 [place] [address]-08-06 10:59:00 Test Item Value Reference Range Interpretation Comments Hct (test code = Hct) 32.1 36.0-48.0 [place] [address]-08-06 10:59:00 Test Item Value Reference Range Interpretation Comments MCV (test code = MCV) 88.3 80.0-98.0 [place] 747592-08-06 10:59:00 Test Item Value Reference Range Interpretation Comments MCH (test code = MCH) 29.2 pg 27.0-31.0 [facility] CypressAvprbmxTTYHSWHCSG4337-95-45 10:59:00 Test Item Value Reference Range Interpretation Comments MCHC (test code = MCHC) 33.1 32.0-36.0 [place] 747592-08-06 10:59:00 Test Item Value Reference Range Interpretation Comments RDW (test code = RDW) 14.2 11.5-14.5 [facility] CypressJmwhblcKGUROLKVXU1662-05-88 10:59:00 Test Item Value Reference Range Interpretation Comments Platelet (test code = Platelet) 341 133-450 [facility] CypressAbmqlwzHUYAYBGOUC4101-76-54 10:59:00 Test Item Value Reference Range Interpretation Comments MPV (test code = MPV) 8.3 7.4-10.4 [facility]2022-08-06 10:59:00 Test Item Value Reference Range Interpretation Comments Glucose Lvl (test code = Glucose Lvl) 99 70-99 [facility]2022-08-06 10:59:00 Test Item Value Reference Range Interpretation Comments BUN (test code = BUN) 24 7-22 [facility]2022-08-06 10:59:00 Test Item Value Reference Range Interpretation Comments Creatinine Lvl (test code = Creatinine 0.68 0.50-1.40 Lvl) [facility]2022-08-06 10:59:00 Test Item Value Reference Range Interpretation Comments Sodium Lvl (test code = Sodium Lvl) 144 135-145 [facility]2022-08-06 10:59:00 Test Item Value Reference Range Interpretation Comments Potassium Lvl (test code = Potassium 4.1 3.5-5.1 Lvl) [facility]2022-08-06 10:59:00 Test Item Value Reference Range Interpretation Comments Chloride Lvl (test code = Chloride Lvl) 113 95-109 [facility]2022-08-06 10:59:00 Test Item Value Reference Range Interpretation Comments CO2 (test code = CO2) 25 24-32 [facility]2022-08-06 10:59:00 Test Item Value Reference Range Interpretation Comments Calcium Lvl (test code = Calcium Lvl) 8.9 8.5-10.5 [facility] [id number] 10:59:00 Test Item Value Reference Range Interpretation Comments Total Protein (test code = Total 6.3 6.4-8.4 Protein) [facility]ressF[facility] [id number] 10:59:00 Test Item Value Reference Range Interpretation Comments Albumin Lvl (test code = Albumin Lvl) 2.7 3.5-5.0 [facility] [id number] 10:59:00 Test Item Value Reference Range Interpretation Comments ALT (test code = ALT) 23 See_Comment [Auto mated message] The system which ge nerated this result transmit gill reference range : <=65. The reference range was not used to interpr et this result as len l/abnormal. [facility] [id number] 10:59:00 Test Item Value Reference Range Interpretation Comments AST (test code = AST) 22 See_Comment [Auto mated message] The system which ge nerated this result transmit gill reference range : <=37. The reference range was not used to interpr et this result as len l/abnormal. [facility] [id number] 10:59:00 Test Item Value Reference Range Interpretation Comments Alk Phos (test code = Alk Phos) 73 39-136 [facility] [employer] [id number] 10:59:00 Test Item Value Reference Range Interpretation Comments Bili Total (test code = Bili Total) 0.3 0.2-1.3 [facility] [id number] 10:59:00 Test Item Value Reference Range Interpretation Comments AGAP (test code = AGAP) 10.1 10.0-20.0 [facility] [employer] [id number] 10:59:00 Test Item Value Reference Range Interpretation Comments B/C Ratio (test code = B/C Ratio) 35 1 6-25 [facility] [id number] 10:59:00 Test Item Value Reference Range Interpretation Comments Globulin (test code = Globulin) 3.6 2.7-4.2 [facility] [id number] 10:59:00 Test Item Value Reference Range Interpretation Comments A/G Ratio (test code = A/G Ratio) 0.8 1 0.7-1.6 [facility] [employer] [id number] 10:59:00 Test Item Value Reference Range Interpretation Comments eGFR (test code = eGFR) 102 [facility]ressVwikimwNJZKHHNOCJ1761-79-75 10:59:00 Test Item Value Reference Range Interpretation Comments Segs (test code = Segs) 62.6 45.0-75.0 [place]7592-08-06 10:59:00 Test Item Value Reference Range Interpretation Comments Lymphocytes (test code = Lymphocytes) 26.0 20.0-40.0 [place] 747592-08-06 10:59:00 Test Item Value Reference Range Interpretation Comments Monocytes (test code = Monocytes) 10.0 2.0-12.0 [place] 747592-08-06 10:59:00 Test Item Value Reference Range Interpretation Comments Eosinophils (test code = 0.9 See_Comment [A utomated message] The Eosinophils) system which ge nerated this result tra nsmitted reference range : <=4.0. The reference r abdifatah was not used to int erpret this result as normal/abnormal . [facility] [id number] 10:59:00 Test Item Value Reference Range Interpretation Comments Basophils (test code = 0.5 See_Comment [Aut omated message] The Basophils) system which ge nerated this result tra nsmitted reference range : <=1.0. The reference r abdifatah was not used to int erpret this result as normal/abnormal . [facility] CypressNtvhbflTDOVJMJZUM1259-28-09 10:59:00 Test Item Value Reference Range Interpretation Comments Neutrophils # (test code = Neutrophils 5.3 1.5-8.1 #) [place] 747592-08-06 10:59:00 Test Item Value Reference Range Interpretation Comments Lymphocytes # (test code = Lymphocytes 2.2 1.0-5.5 #) [place] [address]-08-06 10:59:00 Test Item Value Reference Range Interpretation Comments Monocytes # (test code 0.8 See_Comment [Aut omated message] The = Monocytes #) system which generated this result tra nsmitted reference range : <=0.8. The reference r abdifatah was not used to int erpret this result as normal/abnormal . [place] [address]-08-06 10:59:00 Test Item Value Reference Range Interpretation Comments Eosinophils # (test code 0.1 See_Comment [A utomated message] The = Eosinophils #) system whic h generated this result tra nsmitted reference range : <=0.5. The reference r abdifatah was not used to int erpret this result as normal/abnormal . [facility] CypressDgkzgjjTZXKASPMEH9497-90-36 10:59:00 Test Item Value Reference Range Interpretation Comments WBC (test code = WBC) 8.4 3.7-10.4 [facility] CypressYpcwxboUBSWQUYRHH9132-32-82 10:59:00 Test Item Value Reference Range Interpretation Comments RBC (test code = RBC) 3.64 4.20-5.40 [facility] CypressCrngalyVYJQJXKUUN0346-11-40 10:59:00 Test Item Value Reference Range Interpretation Comments Hgb (test code = Hgb) 10.6 12.0-16.0 [facility] CypressKmkunopAFZCUGBDCJ0951-51-64 10:59:00 Test Item Value Reference Range Interpretation Comments Hct (test code = Hct) 32.1 36.0-48.0 [facility] CypressTgmukhzLYNEECVFHD5277-60-99 10:59:00 Test Item Value Reference Range Interpretation Comments MCV (test code = MCV) 88.3 80.0-98.0 [facility] CypressBnmyjzkLBSGMFEHVF9103-14-06 10:59:00 Test Item Value Reference Range Interpretation Comments MCH (test code = MCH) 29.2 pg 27.0-31.0 [facility] Cy[id number] 10:59:00 Test Item Value Reference Range Interpretation Comments MCHC (test code = MCHC) 33.1 32.0-36.0 [facility] [id number] 10:59:00 Test Item Value Reference Range Interpretation Comments RDW (test code = RDW) 14.2 11.5-14.5 [facility] CypressO[id number] 10:59:00 Test Item Value Reference Range Interpretation Comments Platelet (test code = Platelet) 341 133-450 [facility] Cy[id number] 10:59:00 Test Item Value Reference Range Interpretation Comments MPV (test code = MPV) 8.3 7.4-10.4 [facility]2022-08-06 10:59:00 Test Item Value Reference Range Interpretation Comments Glucose Lvl (test code = Glucose Lvl) 99 70-99 [place] 663522-08-06 10:59:00 Test Item Value Reference Range Interpretation Comments BUN (test code = BUN) 24 7-22 [place] 663522-08-06 10:59:00 Test Item Value Reference Range Interpretation Comments Creatinine Lvl (test code = Creatinine 0.68 0.50-1.40 Lvl) [place] 663522-08-06 10:59:00 Test Item Value Reference Range Interpretation Comments Sodium Lvl (test code = Sodium Lvl) 144 135-145 [place] 663522-08-06 10:59:00 Test Item Value Reference Range Interpretation Comments Potassium Lvl (test code = Potassium 4.1 3.5-5.1 Lvl) [place] 663522-08-06 10:59:00 Test Item Value Reference Range Interpretation Comments Chloride Lvl (test code = Chloride Lvl) 113 95-109 [place] 663522-08-06 10:59:00 Test Item Value Reference Range Interpretation Comments CO2 (test code = CO2) 25 24-32 [place] 663522-08-06 10:59:00 Test Item Value Reference Range Interpretation Comments Calcium Lvl (test code = Calcium Lvl) 8.9 8.5-10.5 [place] 663522-08-06 10:59:00 Test Item Value Reference Range Interpretation Comments Total Protein (test code = Total 6.3 6.4-8.4 Protein) [place] [address]-08-06 10:59:00 Test Item Value Reference Range Interpretation Comments Albumin Lvl (test code = Albumin Lvl) 2.7 3.5-5.0 [place] 663522-08-06 10:59:00 Test Item Value Reference Range Interpretation Comments ALT (test code = ALT) 23 See_Comment [Auto mated message] The system which ge nerated this result transmit gill reference range : <=65. The reference range was not used to interpr et this result as len l/abnormal. [place] 663522-08-06 10:59:00 Test Item Value Reference Range Interpretation Comments AST (test code = AST) 22 See_Comment [Auto mated message] The system which ge nerated this result transmit gill reference range : <=37. The reference range was not used to interpr et this result as len l/abnormal. [facility]2022-08-06 10:59:00 Test Item Value Reference Range Interpretation Comments Alk Phos (test code = Alk Phos) 73 39-136 [place] 663522-08-06 10:59:00 Test Item Value Reference Range Interpretation Comments Bili Total (test code = Bili Total) 0.3 0.2-1.3 [place] 663522-08-06 10:59:00 Test Item Value Reference Range Interpretation Comments AGAP (test code = AGAP) 10.1 10.0-20.0 [place] 663522-08-06 10:59:00 Test Item Value Reference Range Interpretation Comments B/C Ratio (test code = B/C Ratio) 35 1 6-25 [facility]2022-08-06 10:59:00 Test Item Value Reference Range Interpretation Comments Globulin (test code = Globulin) 3.6 2.7-4.2 [facility]2022-08-06 10:59:00 Test Item Value Reference Range Interpretation Comments A/G Ratio (test code = A/G Ratio) 0.8 1 0.7-1.6 [facility]2022-08-06 10:59:00 Test Item Value Reference Range Interpretation Comments eGFR (test code = eGFR) 102 [facility] CypressKkyuotfCJSUBJYXIU1063-15-78 10:59:00 Test Item Value Reference Range Interpretation Comments Segs (test code = Segs) 62.6 45.0-75.0 [facility] CypressFydshhtHOAQNAVFGD6394-64-88 10:59:00 Test Item Value Reference Range Interpretation Comments Lymphocytes (test code = Lymphocytes) 26.0 20.0-40.0 [place] 747592-08-06 10:59:00 Test Item Value Reference Range Interpretation Comments Monocytes (test code = Monocytes) 10.0 2.0-12.0 [place] 747592-08-06 10:59:00 Test Item Value Reference Range Interpretation Comments Eosinophils (test code = 0.9 See_Comment [A utomated message] The Eosinophils) system which ge nerated this result tra nsmitted reference range : <=4.0. The reference r abdifatah was not used to int erpret this result as normal/abnormal . [facility] CypressRbzdomaJTQEQLSSME1492-86-50 10:59:00 Test Item Value Reference Range Interpretation Comments Basophils (test code = 0.5 See_Comment [Aut omated message] The Basophils) system which ge nerated this result tra nsmitted reference range : <=1.0. The reference r abdifatah was not used to int erpret this result as normal/abnormal . [facility] CypressEfmnunpXQFARAODXG1161-13-69 10:59:00 Test Item Value Reference Range Interpretation Comments Neutrophils # (test code = Neutrophils 5.3 1.5-8.1 #) [facility] CypressFsnfzndYCIWFZVVYI0441-52-76 10:59:00 Test Item Value Reference Range Interpretation Comments Lymphocytes # (test code = Lymphocytes 2.2 1.0-5.5 #) [facility] CypressEnqnpqfMPUZTAUDAN0899-26-55 10:59:00 Test Item Value Reference Range Interpretation Comments Monocytes # (test code 0.8 See_Comment [Aut omated message] The = Monocytes #) system which generated this result tra nsmitted reference range : <=0.8. The reference r abdifatah was not used to int erpret this result as normal/abnormal . [facility] CypressByjkhirWFHXYAUHXF4696-72-11 10:59:00 Test Item Value Reference Range Interpretation Comments Eosinophils # (test code 0.1 See_Comment [A utomated message] The = Eosinophils #) system whic h generated this result tra nsmitted reference range : <=0.5. The reference r abdifatah was not used to int erpret this result as normal/abnormal . [facility] CypressCqownbhJFETOKQPSX5466-42-55 10:59:00 Test Item Value Reference Range Interpretation Comments WBC (test code = WBC) 8.4 3.7-10.4 [facility] CypressUulttmbCYJFNQOPFF5528-45-37 10:59:00 Test Item Value Reference Range Interpretation Comments RBC (test code = RBC) 3.64 4.20-5.40 [place] [address]-08-06 10:59:00 Test Item Value Reference Range Interpretation Comments Hgb (test code = Hgb) 10.6 12.0-16.0 [place] [address]-08-06 10:59:00 Test Item Value Reference Range Interpretation Comments Hct (test code = Hct) 32.1 36.0-48.0 [place] 747592-08-06 10:59:00 Test Item Value Reference Range Interpretation Comments MCV (test code = MCV) 88.3 80.0-98.0 [place] [address]-08-06 10:59:00 Test Item Value Reference Range Interpretation Comments MCH (test code = MCH) 29.2 pg 27.0-31.0 [place] [address]-08-06 10:59:00 Test Item Value Reference Range Interpretation Comments MCHC (test code = MCHC) 33.1 32.0-36.0 [place] 747592-08-06 10:59:00 Test Item Value Reference Range Interpretation Comments RDW (test code = RDW) 14.2 11.5-14.5 [place] 747592-08-06 10:59:00 Test Item Value Reference Range Interpretation Comments Platelet (test code = Platelet) 341 133-450 [place] 747592-08-06 10:59:00 Test Item Value Reference Range Interpretation Comments MPV (test code = MPV) 8.3 7.4-10.4 [facility]2022-08-06 10:59:00 Test Item Value Reference Range Interpretation Comments Glucose Lvl (test code = Glucose Lvl) 99 70-99 [facility]2022-08-06 10:59:00 Test Item Value Reference Range Interpretation Comments BUN (test code = BUN) 24 7-22 [facility]2022-08-06 10:59:00 Test Item Value Reference Range Interpretation Comments Creatinine Lvl (test code = Creatinine 0.68 0.50-1.40 Lvl) [facility]2022-08-06 10:59:00 Test Item Value Reference Range Interpretation Comments Sodium Lvl (test code = Sodium Lvl) 144 135-145 [place] 663522-08-06 10:59:00 Test Item Value Reference Range Interpretation Comments Potassium Lvl (test code = Potassium 4.1 3.5-5.1 Lvl) [place] 663522-08-06 10:59:00 Test Item Value Reference Range Interpretation Comments Chloride Lvl (test code = Chloride Lvl) 113 95-109 [place] 663522-08-06 10:59:00 Test Item Value Reference Range Interpretation Comments CO2 (test code = CO2) 25 24-32 [place] 663522-08-06 10:59:00 Test Item Value Reference Range Interpretation Comments Calcium Lvl (test code = Calcium Lvl) 8.9 8.5-10.5 [facility] [id number] 10:59:00 Test Item Value Reference Range Interpretation Comments Total Protein (test code = Total 6.3 6.4-8.4 Protein) [facility] [id number] 10:59:00 Test Item Value Reference Range Interpretation Comments Albumin Lvl (test code = Albumin Lvl) 2.7 3.5-5.0 [facility] [id number] 10:59:00 Test Item Value Reference Range Interpretation Comments ALT (test code = ALT) 23 See_Comment [Auto mated message] The system which ge nerated this result transmit gill reference range : <=65. The reference range was not used to interpr et this result as len l/abnormal. [facility] [id number] 10:59:00 Test Item Value Reference Range Interpretation Comments AST (test code = AST) 22 See_Comment [Auto mated message] The system which ge nerated this result transmit gill reference range : <=37. The reference range was not used to interpr et this result as len l/abnormal. [facility] [id number] 10:59:00 Test Item Value Reference Range Interpretation Comments Alk Phos (test code = Alk Phos) 73 39-136 [facility] [id number] 10:59:00 Test Item Value Reference Range Interpretation Comments Bili Total (test code = Bili Total) 0.3 0.2-1.3 [facility] [id number] 10:59:00 Test Item Value Reference Range Interpretation Comments AGAP (test code = AGAP) 10.1 10.0-20.0 [facility] [employer] [id number] 10:59:00 Test Item Value Reference Range Interpretation Comments B/C Ratio (test code = B/C Ratio) 35 1 6-25 [facility] [id number] 10:59:00 Test Item Value Reference Range Interpretation Comments Globulin (test code = Globulin) 3.6 2.7-4.2 [facility] [id number] 10:59:00 Test Item Value Reference Range Interpretation Comments A/G Ratio (test code = A/G Ratio) 0.8 1 0.7-1.6 [facility]2022-08-06 10:59:00 Test Item Value Reference Range Interpretation Comments eGFR (test code = eGFR) 102 [facility] CypressRcxezmeGSLTGYXKIU2005-79-30 10:59:00 Test Item Value Reference Range Interpretation Comments Segs (test code = Segs) 62.6 45.0-75.0 [place] 747592-08-06 10:59:00 Test Item Value Reference Range Interpretation Comments Lymphocytes (test code = Lymphocytes) 26.0 20.0-40.0 [place] 747592-08-06 10:59:00 Test Item Value Reference Range Interpretation Comments Monocytes (test code = Monocytes) 10.0 2.0-12.0 [place] 747592-08-06 10:59:00 Test Item Value Reference Range Interpretation Comments Eosinophils (test code = 0.9 See_Comment [A utomated message] The Eosinophils) system which ge nerated this result tra nsmitted reference range : <=4.0. The reference r abdifatah was not used to int erpret this result as normal/abnormal . [place] [address]-08-06 10:59:00 Test Item Value Reference Range Interpretation Comments Basophils (test code = 0.5 See_Comment [Aut omated message] The Basophils) system which ge nerated this result tra nsmitted reference range : <=1.0. The reference r abdifatah was not used to int erpret this result as normal/abnormal . [facility] CypressKocsayxQQNYUJQJLJ9996-80-84 10:59:00 Test Item Value Reference Range Interpretation Comments Neutrophils # (test code = Neutrophils 5.3 1.5-8.1 #) [place] [address]-08-06 10:59:00 Test Item Value Reference Range Interpretation Comments Lymphocytes # (test code = Lymphocytes 2.2 1.0-5.5 #) [place] [address]-08-06 10:59:00 Test Item Value Reference Range Interpretation Comments Monocytes # (test code 0.8 See_Comment [Aut omated message] The = Monocytes #) system which generated this result tra nsmitted reference range : <=0.8. The reference r abdifatah was not used to int erpret this result as normal/abnormal . [facility] CypressBgojdotXWHEQGCCHA0817-50-80 10:59:00 Test Item Value Reference Range Interpretation Comments Eosinophils # (test code 0.1 See_Comment [A utomated message] The = Eosinophils #) system whic h generated this result tra nsmitted reference range : <=0.5. The reference r abdifatah was not used to int erpret this result as normal/abnormal . [facility] CypressLunvvuvDYQKDUOFSC2600-85-30 10:59:00 Test Item Value Reference Range Interpretation Comments WBC (test code = WBC) 8.4 3.7-10.4 [facility]RpiflscGWQLTRIAVD8721-19-66 10:59:00 Test Item Value Reference Range Interpretation Comments RBC (test code = RBC) 3.64 4.20-5.40 [facility] HospitalWdjkiuzSYMKAJGKQD4406-04-70 10:59:00 Test Item Value Reference Range Interpretation Comments Hgb (test code = Hgb) 10.6 12.0-16.0 [facility] HospitalOpycragRLBKANEJWU6102-39-96 10:59:00 Test Item Value Reference Range Interpretation Comments Hct (test code = Hct) 32.1 36.0-48.0 [facility] CypressMqhjpzsMQWMNLVFFR9883-69-61 10:59:00 Test Item Value Reference Range Interpretation Comments MCV (test code = MCV) 88.3 80.0-98.0 [facility] CypressRtwjyzkXSWCHSFDZW8121-52-26 10:59:00 Test Item Value Reference Range Interpretation Comments MCH (test code = MCH) 29.2 pg 27.0-31.0 [facility]LfarkwnVHLHDEKVNH7306-35-05 10:59:00 Test Item Value Reference Range Interpretation Comments MCHC (test code = MCHC) 33.1 32.0-36.0 [facility] C[id number] 10:59:00 Test Item Value Reference Range Interpretation Comments RDW (test code = RDW) 14.2 11.5-14.5 [facility] CypressSmrcigaIXAOIWJBUT8523-14-69 10:59:00 Test Item Value Reference Range Interpretation Comments Platelet (test code = Platelet) 341 133-450 [facility] CypressWnqcxhoKRXHAFBJVD3573-19-79 10:59:00 Test Item Value Reference Range Interpretation Comments MPV (test code = MPV) 8.3 7.4-10.4 [facility]2022-08-06 10:59:00 Test Item Value Reference Range Interpretation Comments Glucose Lvl (test code = Glucose Lvl) 99 70-99 [place] 663522-08-06 10:59:00 Test Item Value Reference Range Interpretation Comments BUN (test code = BUN) 24 7-22 [place] 663522-08-06 10:59:00 Test Item Value Reference Range Interpretation Comments Creatinine Lvl (test code = Creatinine 0.68 0.50-1.40 Lvl) [facility]2022-08-06 10:59:00 Test Item Value Reference Range Interpretation Comments Sodium Lvl (test code = Sodium Lvl) 144 135-145 [place] 663522-08-06 10:59:00 Test Item Value Reference Range Interpretation Comments Potassium Lvl (test code = Potassium 4.1 3.5-5.1 Lvl) [facility]2022-08-06 10:59:00 Test Item Value Reference Range Interpretation Comments Chloride Lvl (test code = Chloride Lvl) 113 95-109 [facility]2022-08-06 10:59:00 Test Item Value Reference Range Interpretation Comments CO2 (test code = CO2) 25 24-32 [place] 663522-08-06 10:59:00 Test Item Value Reference Range Interpretation Comments Calcium Lvl (test code = Calcium Lvl) 8.9 8.5-10.5 [facility]2022-08-06 10:59:00 Test Item Value Reference Range Interpretation Comments Total Protein (test code = Total 6.3 6.4-8.4 Protein) [facility]2022-08-06 10:59:00 Test Item Value Reference Range Interpretation Comments Albumin Lvl (test code = Albumin Lvl) 2.7 3.5-5.0 [place] 663522-08-06 10:59:00 Test Item Value Reference Range Interpretation Comments ALT (test code = ALT) 23 See_Comment [Auto mated message] The system which ge nerated this result transmit gill reference range : <=65. The reference range was not used to interpr et this result as len l/abnormal. [place] 663522-08-06 10:59:00 Test Item Value Reference Range Interpretation Comments AST (test code = AST) 22 See_Comment [Auto mated message] The system which ge nerated this result transmit gill reference range : <=37. The reference range was not used to interpr et this result as len l/abnormal. [facility]ressF[facility] [employer] [id number] 10:59:00 Test Item Value Reference Range Interpretation Comments Alk Phos (test code = Alk Phos) 73 39-136 [facility]For[id number] 10:59:00 Test Item Value Reference Range Interpretation Comments Bili Total (test code = Bili Total) 0.3 0.2-1.3 [facility]2022-08-06 10:59:00 Test Item Value Reference Range Interpretation Comments AGAP (test code = AGAP) 10.1 10.0-20.0 [place] 663522-08-06 10:59:00 Test Item Value Reference Range Interpretation Comments B/C Ratio (test code = B/C Ratio) 35 1 6-25 [facility]2022-08-06 10:59:00 Test Item Value Reference Range Interpretation Comments Globulin (test code = Globulin) 3.6 2.7-4.2 [facility]ForSELECT [facility] [id number] 10:59:00 Test Item Value Reference Range Interpretation Comments A/G Ratio (test code = A/G Ratio) 0.8 1 0.7-1.6 [facility]2022-08-06 10:59:00 Test Item Value Reference Range Interpretation Comments eGFR (test code = eGFR) 102 [facility] CypressWbrrxmnUBCSRBKIKW0714-96-76 10:59:00 Test Item Value Reference Range Interpretation Comments Segs (test code = Segs) 62.6 45.0-75.0 [place] 747592-08-06 10:59:00 Test Item Value Reference Range Interpretation Comments Lymphocytes (test code = Lymphocytes) 26.0 20.0-40.0 [place] 747592-08-06 10:59:00 Test Item Value Reference Range Interpretation Comments Monocytes (test code = Monocytes) 10.0 2.0-12.0 [place] 747592-08-06 10:59:00 Test Item Value Reference Range Interpretation Comments Eosinophils (test code = 0.9 See_Comment [A utomated message] The Eosinophils) system which ge nerated this result tra nsmitted reference range : <=4.0. The reference r abdifatah was not used to int erpret this result as normal/abnormal . [facility] CypressKkfngukBYQAXOLYER2045-77-21 10:59:00 Test Item Value Reference Range Interpretation Comments Basophils (test code = 0.5 See_Comment [Aut omated message] The Basophils) system which ge nerated this result tra nsmitted reference range : <=1.0. The reference r abdifatah was not used to int erpret this result as normal/abnormal . [facility] CypressUjiahmqVXHSTQXKZB3338-25-50 10:59:00 Test Item Value Reference Range Interpretation Comments Neutrophils # (test code = Neutrophils 5.3 1.5-8.1 #) [facility] CypressApcbutaIYLQZLJNHX2939-56-73 10:59:00 Test Item Value Reference Range Interpretation Comments Lymphocytes # (test code = Lymphocytes 2.2 1.0-5.5 #) [facility] CypressIjfsxckUXYGTDAKXA1883-57-35 10:59:00 Test Item Value Reference Range Interpretation Comments Monocytes # (test code 0.8 See_Comment [Aut omated message] The = Monocytes #) system which generated this result tra nsmitted reference range : <=0.8. The reference r abdifatah was not used to int erpret this result as normal/abnormal . [facility]SwowxzbZGFHRRRMIQ7860-13-54 10:59:00 Test Item Value Reference Range Interpretation Comments Eosinophils # (test code 0.1 See_Comment [A utomated message] The = Eosinophils #) system whic h generated this result tra nsmitted reference range : <=0.5. The reference r abdifatah was not used to int erpret this result as normal/abnormal . [facility] CypressVufjyecMDUTPEBMYZ7221-93-00 10:59:00 Test Item Value Reference Range Interpretation Comments WBC (test code = WBC) 8.4 3.7-10.4 [place]7592-08-06 10:59:00 Test Item Value Reference Range Interpretation Comments RBC (test code = RBC) 3.64 4.20-5.40 [place]7592-08-06 10:59:00 Test Item Value Reference Range Interpretation Comments Hgb (test code = Hgb) 10.6 12.0-16.0 [place] 747592-08-06 10:59:00 Test Item Value Reference Range Interpretation Comments Hct (test code = Hct) 32.1 36.0-48.0 [place] 747592-08-06 10:59:00 Test Item Value Reference Range Interpretation Comments MCV (test code = MCV) 88.3 80.0-98.0 [place] [address]-08-06 10:59:00 Test Item Value Reference Range Interpretation Comments MCH (test code = MCH) 29.2 pg 27.0-31.0 [place] 747592-08-06 10:59:00 Test Item Value Reference Range Interpretation Comments MCHC (test code = MCHC) 33.1 32.0-36.0 [place] 747592-08-06 10:59:00 Test Item Value Reference Range Interpretation Comments RDW (test code = RDW) 14.2 11.5-14.5 [place] [address]-08-06 10:59:00 Test Item Value Reference Range Interpretation Comments Platelet (test code = Platelet) 341 133-450 [facility] CypressSqqfyakQJBRJMTBMV8395-10-90 10:59:00 Test Item Value Reference Range Interpretation Comments MPV (test code = MPV) 8.3 7.4-10.4 [facility]2022-08-06 10:59:00 Test Item Value Reference Range Interpretation Comments Glucose Lvl (test code = Glucose Lvl) 99 70-99 [facility]2022-08-06 10:59:00 Test Item Value Reference Range Interpretation Comments BUN (test code = BUN) 24 7-22 [facility]2022-08-06 10:59:00 Test Item Value Reference Range Interpretation Comments Creatinine Lvl (test code = Creatinine 0.68 0.50-1.40 Lvl) [facility]2022-08-06 10:59:00 Test Item Value Reference Range Interpretation Comments Sodium Lvl (test code = Sodium Lvl) 144 135-145 [facility]2022-08-06 10:59:00 Test Item Value Reference Range Interpretation Comments Potassium Lvl (test code = Potassium 4.1 3.5-5.1 Lvl) [facility]2022-08-06 10:59:00 Test Item Value Reference Range Interpretation Comments Chloride Lvl (test code = Chloride Lvl) 113 95-109 [place] 663522-08-06 10:59:00 Test Item Value Reference Range Interpretation Comments CO2 (test code = CO2) 25 24-32 [place] 663522-08-06 10:59:00 Test Item Value Reference Range Interpretation Comments Calcium Lvl (test code = Calcium Lvl) 8.9 8.5-10.5 [place] 663522-08-06 10:59:00 Test Item Value Reference Range Interpretation Comments Total Protein (test code = Total 6.3 6.4-8.4 Protein) [place] 663522-08-06 10:59:00 Test Item Value Reference Range Interpretation Comments Albumin Lvl (test code = Albumin Lvl) 2.7 3.5-5.0 [place] 663522-08-06 10:59:00 Test Item Value Reference Range Interpretation Comments ALT (test code = ALT) 23 See_Comment [Auto mated message] The system which ge nerated this result transmit gill reference range : <=65. The reference range was not used to interpr et this result as len l/abnormal. [facility]2022-08-06 10:59:00 Test Item Value Reference Range Interpretation Comments AST (test code = AST) 22 See_Comment [Auto mated message] The system which ge nerated this result transmit gill reference range : <=37. The reference range was not used to interpr et this result as len l/abnormal. [place] 663522-08-06 10:59:00 Test Item Value Reference Range Interpretation Comments Alk Phos (test code = Alk Phos) 73 39-136 [place] 663522-08-06 10:59:00 Test Item Value Reference Range Interpretation Comments Bili Total (test code = Bili Total) 0.3 0.2-1.3 [place] 663522-08-06 10:59:00 Test Item Value Reference Range Interpretation Comments AGAP (test code = AGAP) 10.1 10.0-20.0 [place] [address]-08-06 10:59:00 Test Item Value Reference Range Interpretation Comments B/C Ratio (test code = B/C Ratio) 35 1 6-25 [place] 663522-08-06 10:59:00 Test Item Value Reference Range Interpretation Comments Globulin (test code = Globulin) 3.6 2.7-4.2 [facility]2022-08-06 10:59:00 Test Item Value Reference Range Interpretation Comments A/G Ratio (test code = A/G Ratio) 0.8 1 0.7-1.6 [facility]2022-08-06 10:59:00 Test Item Value Reference Range Interpretation Comments eGFR (test code = eGFR) 102 [facility] CypressOurtzaaDPHDRYOYQU3631-78-89 10:59:00 Test Item Value Reference Range Interpretation Comments Segs (test code = Segs) 62.6 45.0-75.0 [place] 747592-08-06 10:59:00 Test Item Value Reference Range Interpretation Comments Lymphocytes (test code = Lymphocytes) 26.0 20.0-40.0 [facility] CypressHhetfusTDEQOVTVQU1858-94-39 10:59:00 Test Item Value Reference Range Interpretation Comments Monocytes (test code = Monocytes) 10.0 2.0-12.0 [place] 747592-08-06 10:59:00 Test Item Value Reference Range Interpretation Comments Eosinophils (test code = 0.9 See_Comment [A utomated message] The Eosinophils) system which ge nerated this result tra nsmitted reference range : <=4.0. The reference r abdifatah was not used to int erpret this result as normal/abnormal . [facility] CypressZwlcnrsQQFJROIWSO0725-82-43 10:59:00 Test Item Value Reference Range Interpretation Comments Basophils (test code = 0.5 See_Comment [Aut omated message] The Basophils) system which ge nerated this result tra nsmitted reference range : <=1.0. The reference r abdifatah was not used to int erpret this result as normal/abnormal . [facility] CypressMimnpmxEOJTCRQOBQ2641-81-08 10:59:00 Test Item Value Reference Range Interpretation Comments Neutrophils # (test code = Neutrophils 5.3 1.5-8.1 #) [place]7592-08-06 10:59:00 Test Item Value Reference Range Interpretation Comments Lymphocytes # (test code = Lymphocytes 2.2 1.0-5.5 #) [place] 747592-08-06 10:59:00 Test Item Value Reference Range Interpretation Comments Monocytes # (test code 0.8 See_Comment [Aut omated message] The = Monocytes #) system which generated this result tra nsmitted reference range : <=0.8. The reference r abdifatah was not used to int erpret this result as normal/abnormal . [facility] CypressIyavhxiNJEWOAHQPG0035-76-30 10:59:00 Test Item Value Reference Range Interpretation Comments Eosinophils # (test code 0.1 See_Comment [A utomated message] The = Eosinophils #) system whic h generated this result tra nsmitted reference range : <=0.5. The reference r abdifatah was not used to int erpret this result as normal/abnormal . [facility] CypressIxozzphRUGVTKTZHJ3859-89-80 10:59:00 Test Item Value Reference Range Interpretation Comments WBC (test code = WBC) 8.4 3.7-10.4 [facility] CypressTwmdbjbRKRJMIRPBF4893-77-83 10:59:00 Test Item Value Reference Range Interpretation Comments RBC (test code = RBC) 3.64 4.20-5.40 [facility] CypressEjjnhwjRKIFWLGIWM0200-35-85 10:59:00 Test Item Value Reference Range Interpretation Comments Hgb (test code = Hgb) 10.6 12.0-16.0 [facility] CypressHhnbexmZPURVKYNIP1086-71-30 10:59:00 Test Item Value Reference Range Interpretation Comments Hct (test code = Hct) 32.1 36.0-48.0 [facility] CypressRccgvqkLXEEQPTWYK6702-94-04 10:59:00 Test Item Value Reference Range Interpretation Comments MCV (test code = MCV) 88.3 80.0-98.0 [facility] CypressVdlcyadQNMHSZEJUR7246-44-06 10:59:00 Test Item Value Reference Range Interpretation Comments MCH (test code = MCH) 29.2 pg 27.0-31.0 [facility] CypressUyjgjnwNPDMWNNREI6715-49-26 10:59:00 Test Item Value Reference Range Interpretation Comments MCHC (test code = MCHC) 33.1 32.0-36.0 [facility] CypressCtvsmpySZBBWPXNSU6788-04-37 10:59:00 Test Item Value Reference Range Interpretation Comments RDW (test code = RDW) 14.2 11.5-14.5 [facility] CypressHxjdlmkLMBZJVJBWC8326-75-78 10:59:00 Test Item Value Reference Range Interpretation Comments Platelet (test code = Platelet) 341 133-450 [facility] CypressPsmyroxLHCNWRRWQG1804-97-58 10:59:00 Test Item Value Reference Range Interpretation Comments MPV (test code = MPV) 8.3 7.4-10.4 [place] 663522-08-06 10:59:00 Test Item Value Reference Range Interpretation Comments Glucose Lvl (test code = Glucose Lvl) 99 70-99 [place] 663522-08-06 10:59:00 Test Item Value Reference Range Interpretation Comments BUN (test code = BUN) 24 7-22 [place] 663522-08-06 10:59:00 Test Item Value Reference Range Interpretation Comments Creatinine Lvl (test code = Creatinine 0.68 0.50-1.40 Lvl) [place] 663522-08-06 10:59:00 Test Item Value Reference Range Interpretation Comments Sodium Lvl (test code = Sodium Lvl) 144 135-145 [place] 663522-08-06 10:59:00 Test Item Value Reference Range Interpretation Comments Potassium Lvl (test code = Potassium 4.1 3.5-5.1 Lvl) [place] 663522-08-06 10:59:00 Test Item Value Reference Range Interpretation Comments Chloride Lvl (test code = Chloride Lvl) 113 95-109 [place] 663522-08-06 10:59:00 Test Item Value Reference Range Interpretation Comments CO2 (test code = CO2) 25 24-32 [place] 663522-08-06 10:59:00 Test Item Value Reference Range Interpretation Comments Calcium Lvl (test code = Calcium Lvl) 8.9 8.5-10.5 [place] 663522-08-06 10:59:00 Test Item Value Reference Range Interpretation Comments Total Protein (test code = Total 6.3 6.4-8.4 Protein) [place] 663522-08-06 10:59:00 Test Item Value Reference Range Interpretation Comments Albumin Lvl (test code = Albumin Lvl) 2.7 3.5-5.0 [place] 663522-08-06 10:59:00 Test Item Value Reference Range Interpretation Comments ALT (test code = ALT) 23 <=65 [place] 663522-08-06 10:59:00 Test Item Value Reference Range Interpretation Comments AST (test code = AST) 22 <=37 [facility]2022-08-06 10:59:00 Test Item Value Reference Range Interpretation Comments Alk Phos (test code = Alk Phos) 73 39-136 [facility]2022-08-06 10:59:00 Test Item Value Reference Range Interpretation Comments Bili Total (test code = Bili Total) 0.3 0.2-1.3 [facility]2022-08-06 10:59:00 Test Item Value Reference Range Interpretation Comments AGAP (test code = AGAP) 10.1 10.0-20.0 [place] 663522-08-06 10:59:00 Test Item Value Reference Range Interpretation Comments B/C Ratio (test code = B/C Ratio) 35 1 6-25 [place] 663522-08-06 10:59:00 Test Item Value Reference Range Interpretation Comments Globulin (test code = Globulin) 3.6 2.7-4.2 [facility]2022-08-06 10:59:00 Test Item Value Reference Range Interpretation Comments A/G Ratio (test code = A/G Ratio) 0.8 1 0.7-1.6 [facility]2022-08-06 10:59:00 Test Item Value Reference Range Interpretation Comments eGFR (test code = eGFR) 102 [facility] CypressBvsmpjkHPDAFWZJSX9789-38-23 10:59:00 Test Item Value Reference Range Interpretation Comments Segs (test code = Segs) 62.6 45.0-75.0 [facility] CypressRaesrioTKVWBOKAUU9320-72-57 10:59:00 Test Item Value Reference Range Interpretation Comments Lymphocytes (test code = Lymphocytes) 26.0 20.0-40.0 [place] 747592-08-06 10:59:00 Test Item Value Reference Range Interpretation Comments Monocytes (test code = Monocytes) 10.0 2.0-12.0 [place] 747592-08-06 10:59:00 Test Item Value Reference Range Interpretation Comments Eosinophils (test code = Eosinophils) 0.9 <=4.0 [place] 747592-08-06 10:59:00 Test Item Value Reference Range Interpretation Comments Basophils (test code = Basophils) 0.5 <=1.0 [place] 747592-08-06 10:59:00 Test Item Value Reference Range Interpretation Comments Neutrophils # (test code = Neutrophils 5.3 1.5-8.1 #) [facility] CypressMozvqiqFABYVDAQOL6526-92-28 10:59:00 Test Item Value Reference Range Interpretation Comments Lymphocytes # (test code = Lymphocytes 2.2 1.0-5.5 #) [facility] CypressAcxlkktMQEFIUXIIX5098-66-92 10:59:00 Test Item Value Reference Range Interpretation Comments Monocytes # (test code = Monocytes #) 0.8 <=0.8 [place]7592-08-06 10:59:00 Test Item Value Reference Range Interpretation Comments Eosinophils # (test code = Eosinophils 0.1 <=0.5 #) [facility] CypressYfwokeyJRGSVQPZQY3694-21-99 10:59:00 Test Item Value Reference Range Interpretation Comments WBC (test code = WBC) 8.4 3.7-10.4 [facility] CypressPpwuudiPKVJNJCZAK0501-59-46 10:59:00 Test Item Value Reference Range Interpretation Comments RBC (test code = RBC) 3.64 4.20-5.40 [facility] CypressPsbqslxPOJIIRUSHJ7913-94-84 10:59:00 Test Item Value Reference Range Interpretation Comments Hgb (test code = Hgb) 10.6 12.0-16.0 [place]7592-08-06 10:59:00 Test Item Value Reference Range Interpretation Comments Hct (test code = Hct) 32.1 36.0-48.0 [facility] CypressHjyiryaNSESKMRZJT3284-64-84 10:59:00 Test Item Value Reference Range Interpretation Comments MCV (test code = MCV) 88.3 80.0-98.0 [place] 747592-08-06 10:59:00 Test Item Value Reference Range Interpretation Comments MCH (test code = MCH) 29.2 pg 27.0-31.0 [place] 747592-08-06 10:59:00 Test Item Value Reference Range Interpretation Comments MCHC (test code = MCHC) 33.1 32.0-36.0 [place] 747592-08-06 10:59:00 Test Item Value Reference Range Interpretation Comments RDW (test code = RDW) 14.2 11.5-14.5 [place] 747592-08-06 10:59:00 Test Item Value Reference Range Interpretation Comments Platelet (test code = Platelet) 341 133-450 [facility] CypressSdyoxriDGXAGLNEIP5385-37-52 10:59:00 Test Item Value Reference Range Interpretation Comments MPV (test code = MPV) 8.3 7.4-10.4 [facility]2022-08-06 10:59:00 Test Item Value Reference Range Interpretation Comments Glucose Lvl (test code = Glucose Lvl) 99 70-99 [facility]2022-08-06 10:59:00 Test Item Value Reference Range Interpretation Comments BUN (test code = BUN) 24 7-22 [facility]2022-08-06 10:59:00 Test Item Value Reference Range Interpretation Comments Creatinine Lvl (test code = Creatinine 0.68 0.50-1.40 Lvl) [facility]2022-08-06 10:59:00 Test Item Value Reference Range Interpretation Comments Sodium Lvl (test code = Sodium Lvl) 144 135-145 [facility]2022-08-06 10:59:00 Test Item Value Reference Range Interpretation Comments Potassium Lvl (test code = Potassium 4.1 3.5-5.1 Lvl) [facility]2022-08-06 10:59:00 Test Item Value Reference Range Interpretation Comments Chloride Lvl (test code = Chloride Lvl) 113 95-109 [facility]2022-08-06 10:59:00 Test Item Value Reference Range Interpretation Comments CO2 (test code = CO2) 25 24-32 [facility]2022-08-06 10:59:00 Test Item Value Reference Range Interpretation Comments Calcium Lvl (test code = Calcium Lvl) 8.9 8.5-10.5 [facility]2022-08-06 10:59:00 Test Item Value Reference Range Interpretation Comments Total Protein (test code = Total 6.3 6.4-8.4 Protein) [facility]2022-08-06 10:59:00 Test Item Value Reference Range Interpretation Comments Albumin Lvl (test code = Albumin Lvl) 2.7 3.5-5.0 [facility]2022-08-06 10:59:00 Test Item Value Reference Range Interpretation Comments ALT (test code = ALT) 23 <=65 [facility]2022-08-06 10:59:00 Test Item Value Reference Range Interpretation Comments AST (test code = AST) 22 <=37 [place] 663522-08-06 10:59:00 Test Item Value Reference Range Interpretation Comments Alk Phos (test code = Alk Phos) 73 39-136 [place] 663522-08-06 10:59:00 Test Item Value Reference Range Interpretation Comments Bili Total (test code = Bili Total) 0.3 0.2-1.3 [place] 663522-08-06 10:59:00 Test Item Value Reference Range Interpretation Comments AGAP (test code = AGAP) 10.1 10.0-20.0 [place] 663522-08-06 10:59:00 Test Item Value Reference Range Interpretation Comments B/C Ratio (test code = B/C Ratio) 35 1 6-25 [place] 663522-08-06 10:59:00 Test Item Value Reference Range Interpretation Comments Globulin (test code = Globulin) 3.6 2.7-4.2 [place] 663522-08-06 10:59:00 Test Item Value Reference Range Interpretation Comments A/G Ratio (test code = A/G Ratio) 0.8 1 0.7-1.6 [place] [address]-08-06 10:59:00 Test Item Value Reference Range Interpretation Comments eGFR (test code = eGFR) 102 [facility] CypressCiwgdfgFDOZMNPLIC4961-98-11 10:59:00 Test Item Value Reference Range Interpretation Comments Segs (test code = Segs) 62.6 45.0-75.0 [place] 747592-08-06 10:59:00 Test Item Value Reference Range Interpretation Comments Lymphocytes (test code = Lymphocytes) 26.0 20.0-40.0 [place] [address]-08-06 10:59:00 Test Item Value Reference Range Interpretation Comments Monocytes (test code = Monocytes) 10.0 2.0-12.0 [place] [address]-08-06 10:59:00 Test Item Value Reference Range Interpretation Comments Eosinophils (test code = Eosinophils) 0.9 <=4.0 [place] [address]-08-06 10:59:00 Test Item Value Reference Range Interpretation Comments Basophils (test code = Basophils) 0.5 <=1.0 [place] [address]-08-06 10:59:00 Test Item Value Reference Range Interpretation Comments Neutrophils # (test code = Neutrophils 5.3 1.5-8.1 #) [facility] CypressJhxxthkVTFACNAXNG2515-39-96 10:59:00 Test Item Value Reference Range Interpretation Comments Lymphocytes # (test code = Lymphocytes 2.2 1.0-5.5 #) [facility] CypressYuvzlccSRNOSIPHUL5708-51-39 10:59:00 Test Item Value Reference Range Interpretation Comments Monocytes # (test code = Monocytes #) 0.8 <=0.8 [place] [address]-08-06 10:59:00 Test Item Value Reference Range Interpretation Comments Eosinophils # (test code = Eosinophils 0.1 <=0.5 #) [facility] CypressAcknwzaJVEYCLKYUS6531-78-60 10:59:00 Test Item Value Reference Range Interpretation Comments WBC (test code = WBC) 8.4 3.7-10.4 [place]7592-08-06 10:59:00 Test Item Value Reference Range Interpretation Comments RBC (test code = RBC) 3.64 4.20-5.40 [place] 747592-08-06 10:59:00 Test Item Value Reference Range Interpretation Comments Hgb (test code = Hgb) 10.6 12.0-16.0 [place]7592-08-06 10:59:00 Test Item Value Reference Range Interpretation Comments Hct (test code = Hct) 32.1 36.0-48.0 [place] 747592-08-06 10:59:00 Test Item Value Reference Range Interpretation Comments MCV (test code = MCV) 88.3 80.0-98.0 [place] 747592-08-06 10:59:00 Test Item Value Reference Range Interpretation Comments MCH (test code = MCH) 29.2 pg 27.0-31.0 [place] [address]-08-06 10:59:00 Test Item Value Reference Range Interpretation Comments MCHC (test code = MCHC) 33.1 32.0-36.0 [place] [address]-08-06 10:59:00 Test Item Value Reference Range Interpretation Comments RDW (test code = RDW) 14.2 11.5-14.5 [place] [address]-08-06 10:59:00 Test Item Value Reference Range Interpretation Comments Platelet (test code = Platelet) 341 133-450 [place] 747592-08-06 10:59:00 Test Item Value Reference Range Interpretation Comments MPV (test code = MPV) 8.3 7.4-10.4 [place] 663522-08-06 10:59:00 Test Item Value Reference Range Interpretation Comments Glucose Lvl (test code = Glucose Lvl) 99 70-99 [facility]2022-08-06 10:59:00 Test Item Value Reference Range Interpretation Comments BUN (test code = BUN) 24 7-22 [facility]2022-08-06 10:59:00 Test Item Value Reference Range Interpretation Comments Creatinine Lvl (test code = Creatinine 0.68 0.50-1.40 Lvl) [facility]2022-08-06 10:59:00 Test Item Value Reference Range Interpretation Comments Sodium Lvl (test code = Sodium Lvl) 144 135-145 [place] 663522-08-06 10:59:00 Test Item Value Reference Range Interpretation Comments Potassium Lvl (test code = Potassium 4.1 3.5-5.1 Lvl) [facility]2022-08-06 10:59:00 Test Item Value Reference Range Interpretation Comments Chloride Lvl (test code = Chloride Lvl) 113 95-109 [place] 663522-08-06 10:59:00 Test Item Value Reference Range Interpretation Comments CO2 (test code = CO2) 25 24-32 [place] 663522-08-06 10:59:00 Test Item Value Reference Range Interpretation Comments Calcium Lvl (test code = Calcium Lvl) 8.9 8.5-10.5 [place] 663522-08-06 10:59:00 Test Item Value Reference Range Interpretation Comments Total Protein (test code = Total 6.3 6.4-8.4 Protein) [facility]2022-08-06 10:59:00 Test Item Value Reference Range Interpretation Comments Albumin Lvl (test code = Albumin Lvl) 2.7 3.5-5.0 [place] 663522-08-06 10:59:00 Test Item Value Reference Range Interpretation Comments ALT (test code = ALT) 23 See_Comment [Auto mated message] The system which ge nerated this result transmit gill reference range : <=65. The reference range was not used to interpr et this result as len l/abnormal. [facility] [employer] [id number] 10:59:00 Test Item Value Reference Range Interpretation Comments AST (test code = AST) 22 See_Comment [Auto mated message] The system which ge nerated this result transmit gill reference range : <=37. The reference range was not used to interpr et this result as len l/abnormal. [facility] [id number] 10:59:00 Test Item Value Reference Range Interpretation Comments Alk Phos (test code = Alk Phos) 73 39-136 [facility] [id number] 10:59:00 Test Item Value Reference Range Interpretation Comments Bili Total (test code = Bili Total) 0.3 0.2-1.3 [facility] [id number] 10:59:00 Test Item Value Reference Range Interpretation Comments AGAP (test code = AGAP) 10.1 10.0-20.0 [facility] [id number] 10:59:00 Test Item Value Reference Range Interpretation Comments B/C Ratio (test code = B/C Ratio) 35 1 6-25 [facility] [id number] 10:59:00 Test Item Value Reference Range Interpretation Comments Globulin (test code = Globulin) 3.6 2.7-4.2 [facility] [id number] 10:59:00 Test Item Value Reference Range Interpretation Comments A/G Ratio (test code = A/G Ratio) 0.8 1 0.7-1.6 [facility] [id number] 10:59:00 Test Item Value Reference Range Interpretation Comments eGFR (test code = eGFR) 102 [facility]ressGvjusyzXTWCJIQAAW0619-11-75 10:59:00 Test Item Value Reference Range Interpretation Comments Segs (test code = Segs) 62.6 45.0-75.0 [facility] CypressGmataleUVDDWFBCRI9543-58-45 10:59:00 Test Item Value Reference Range Interpretation Comments Lymphocytes (test code = Lymphocytes) 26.0 20.0-40.0 [facility] 10:59:00 Test Item Value Reference Range Interpretation Comments Monocytes (test code = Monocytes) 10.0 2.0-12.0 [facility]QxoehiuUROZTYCQNK0242-39-97 10:59:00 Test Item Value Reference Range Interpretation Comments Eosinophils (test code = 0.9 See_Comment [A utomated message] The Eosinophils) system which ge nerated this result tra nsmitted reference range : <=4.0. The reference r abdifatah was not used to int erpret this result as normal/abnormal . [facility] CypressXyvgzyoHOSGGSBNNW0111-42-15 10:59:00 Test Item Value Reference Range Interpretation Comments Basophils (test code = 0.5 See_Comment [Aut omated message] The Basophils) system which ge nerated this result tra nsmitted reference range : <=1.0. The reference r abdifatah was not used to int erpret this result as normal/abnormal . [facility] CypressXjxxlagODKDKHGXKG2105-72-02 10:59:00 Test Item Value Reference Range Interpretation Comments Neutrophils # (test code = Neutrophils 5.3 1.5-8.1 #) [facility] CypressShatwtvVRUPPESPMC3068-73-88 10:59:00 Test Item Value Reference Range Interpretation Comments Lymphocytes # (test code = Lymphocytes 2.2 1.0-5.5 #) [facility] CypressZoyogmpQLXKNZSUFV0638-09-93 10:59:00 Test Item Value Reference Range Interpretation Comments Monocytes # (test code 0.8 See_Comment [Aut omated message] The = Monocytes #) system which generated this result tra nsmitted reference range : <=0.8. The reference r abdifatah was not used to int erpret this result as normal/abnormal . [facility] CypressAwdaihnTKEGGQICCB7446-11-35 10:59:00 Test Item Value Reference Range Interpretation Comments Eosinophils # (test code 0.1 See_Comment [A utomated message] The = Eosinophils #) system whic h generated this result tra nsmitted reference range : <=0.5. The reference r abdifatah was not used to int erpret this result as normal/abnormal . [facility] CypressTbvngtjEUGNJVLMLW2366-37-83 10:59:00 Test Item Value Reference Range Interpretation Comments WBC (test code = WBC) 8.4 3.7-10.4 [place] 747592-08-06 10:59:00 Test Item Value Reference Range Interpretation Comments RBC (test code = RBC) 3.64 4.20-5.40 [place] 747592-08-06 10:59:00 Test Item Value Reference Range Interpretation Comments Hgb (test code = Hgb) 10.6 12.0-16.0 [place] [address]-08-06 10:59:00 Test Item Value Reference Range Interpretation Comments Hct (test code = Hct) 32.1 36.0-48.0 [place] 747592-08-06 10:59:00 Test Item Value Reference Range Interpretation Comments MCV (test code = MCV) 88.3 80.0-98.0 [place] [address]-08-06 10:59:00 Test Item Value Reference Range Interpretation Comments MCH (test code = MCH) 29.2 pg 27.0-31.0 [place] 747592-08-06 10:59:00 Test Item Value Reference Range Interpretation Comments MCHC (test code = MCHC) 33.1 32.0-36.0 [place] 747592-08-06 10:59:00 Test Item Value Reference Range Interpretation Comments RDW (test code = RDW) 14.2 11.5-14.5 [place] [address]-08-06 10:59:00 Test Item Value Reference Range Interpretation Comments Platelet (test code = Platelet) 341 133-450 [facility] CypressNryrjqfCWLARPZWTJ0378-19-93 10:59:00 Test Item Value Reference Range Interpretation Comments MPV (test code = MPV) 8.3 7.4-10.4 [facility]2022-08-06 10:59:00 Test Item Value Reference Range Interpretation Comments Glucose Lvl (test code = Glucose Lvl) 99 70-99 [facility]2022-08-06 10:59:00 Test Item Value Reference Range Interpretation Comments BUN (test code = BUN) 24 7-22 [facility]2022-08-06 10:59:00 Test Item Value Reference Range Interpretation Comments Creatinine Lvl (test code = Creatinine 0.68 0.50-1.40 Lvl) [facility]2022-08-06 10:59:00 Test Item Value Reference Range Interpretation Comments Sodium Lvl (test code = Sodium Lvl) 144 135-145 [place] 663522-08-06 10:59:00 Test Item Value Reference Range Interpretation Comments Potassium Lvl (test code = Potassium 4.1 3.5-5.1 Lvl) [facility]2022-08-06 10:59:00 Test Item Value Reference Range Interpretation Comments Chloride Lvl (test code = Chloride Lvl) 113 95-109 [place] 663522-08-06 10:59:00 Test Item Value Reference Range Interpretation Comments CO2 (test code = CO2) 25 24-32 [place] 663522-08-06 10:59:00 Test Item Value Reference Range Interpretation Comments Calcium Lvl (test code = Calcium Lvl) 8.9 8.5-10.5 [facility]2022-08-06 10:59:00 Test Item Value Reference Range Interpretation Comments Total Protein (test code = Total 6.3 6.4-8.4 Protein) [facility]2022-08-06 10:59:00 Test Item Value Reference Range Interpretation Comments Albumin Lvl (test code = Albumin Lvl) 2.7 3.5-5.0 [facility]2022-08-06 10:59:00 Test Item Value Reference Range Interpretation Comments ALT (test code = ALT) 23 <=65 [facility]2022-08-06 10:59:00 Test Item Value Reference Range Interpretation Comments AST (test code = AST) 22 <=37 [place] 663522-08-06 10:59:00 Test Item Value Reference Range Interpretation Comments Alk Phos (test code = Alk Phos) 73 39-136 [facility]2022-08-06 10:59:00 Test Item Value Reference Range Interpretation Comments Bili Total (test code = Bili Total) 0.3 0.2-1.3 [facility]2022-08-06 10:59:00 Test Item Value Reference Range Interpretation Comments AGAP (test code = AGAP) 10.1 10.0-20.0 [facility]2022-08-06 10:59:00 Test Item Value Reference Range Interpretation Comments B/C Ratio (test code = B/C Ratio) 35 1 6-25 [place] 663522-08-06 10:59:00 Test Item Value Reference Range Interpretation Comments Globulin (test code = Globulin) 3.6 2.7-4.2 [facility]2022-08-06 10:59:00 Test Item Value Reference Range Interpretation Comments A/G Ratio (test code = A/G Ratio) 0.8 1 0.7-1.6 [facility]2022-08-06 10:59:00 Test Item Value Reference Range Interpretation Comments eGFR (test code = eGFR) 102 [facility] CypressPlcveprVJADOOKNOO9085-98-87 10:59:00 Test Item Value Reference Range Interpretation Comments Segs (test code = Segs) 62.6 45.0-75.0 [place] 747592-08-06 10:59:00 Test Item Value Reference Range Interpretation Comments Lymphocytes (test code = Lymphocytes) 26.0 20.0-40.0 [facility] CypressUgidzesEWEZIXKGOJ2146-98-57 10:59:00 Test Item Value Reference Range Interpretation Comments Monocytes (test code = Monocytes) 10.0 2.0-12.0 [facility] CypressViyeljoJSIXTPEIAQ5048-70-56 10:59:00 Test Item Value Reference Range Interpretation Comments Eosinophils (test code = Eosinophils) 0.9 <=4.0 [facility] CypressGczwpktDGBROQNNHV7416-26-15 10:59:00 Test Item Value Reference Range Interpretation Comments Basophils (test code = Basophils) 0.5 <=1.0 [facility] CypressPpvyjrjSJRRWHFHCM1182-30-99 10:59:00 Test Item Value Reference Range Interpretation Comments Neutrophils # (test code = Neutrophils 5.3 1.5-8.1 #) [facility] CypressQutzrebIDTLARBCTQ8091-39-33 10:59:00 Test Item Value Reference Range Interpretation Comments Lymphocytes # (test code = Lymphocytes 2.2 1.0-5.5 #) [facility] CypressVaureqzFZCFIIWCNL5859-21-27 10:59:00 Test Item Value Reference Range Interpretation Comments Monocytes # (test code = Monocytes #) 0.8 <=0.8 [place] 747592-08-06 10:59:00 Test Item Value Reference Range Interpretation Comments Eosinophils # (test code = Eosinophils 0.1 <=0.5 #) [facility] CypressAtzseifWMSCJVUQLW4857-56-79 10:59:00 Test Item Value Reference Range Interpretation Comments WBC (test code = WBC) 8.4 3.7-10.4 [place] 747592-08-06 10:59:00 Test Item Value Reference Range Interpretation Comments RBC (test code = RBC) 3.64 4.20-5.40 [facility] CypressXyyrqulBMBMCTCSNG3498-39-92 10:59:00 Test Item Value Reference Range Interpretation Comments Hgb (test code = Hgb) 10.6 12.0-16.0 [facility] CypressTigcvbcKFUHVFJZTA4233-01-56 10:59:00 Test Item Value Reference Range Interpretation Comments Hct (test code = Hct) 32.1 36.0-48.0 [facility] CypressKndueroFHGZBCDCHS1172-66-72 10:59:00 Test Item Value Reference Range Interpretation Comments MCV (test code = MCV) 88.3 80.0-98.0 [place] 747592-08-06 10:59:00 Test Item Value Reference Range Interpretation Comments MCH (test code = MCH) 29.2 pg 27.0-31.0 [facility] CypressDecjkipMEVTKEFHTD8721-91-51 10:59:00 Test Item Value Reference Range Interpretation Comments MCHC (test code = MCHC) 33.1 32.0-36.0 [facility] CypressPzaovbwTNONKNIEZR4599-16-17 10:59:00 Test Item Value Reference Range Interpretation Comments RDW (test code = RDW) 14.2 11.5-14.5 [facility] CypressHkontxmCYMVQWGPAY9563-80-16 10:59:00 Test Item Value Reference Range Interpretation Comments Platelet (test code = Platelet) 341 133-450 [facility] CypressYqhmqsqJSDKYKWYWT3994-22-41 10:59:00 Test Item Value Reference Range Interpretation Comments MPV (test code = MPV) 8.3 7.4-10.4 [facility]2022-08-06 10:59:00 Test Item Value Reference Range Interpretation Comments Glucose Lvl (test code = Glucose Lvl) 99 70-99 [facility]2022-08-06 10:59:00 Test Item Value Reference Range Interpretation Comments BUN (test code = BUN) 24 7-22 [facility]2022-08-06 10:59:00 Test Item Value Reference Range Interpretation Comments Creatinine Lvl (test code = Creatinine 0.68 0.50-1.40 Lvl) [facility]2022-08-06 10:59:00 Test Item Value Reference Range Interpretation Comments Sodium Lvl (test code = Sodium Lvl) 144 135-145 [facility]2022-08-06 10:59:00 Test Item Value Reference Range Interpretation Comments Potassium Lvl (test code = Potassium 4.1 3.5-5.1 Lvl) [facility]2022-08-06 10:59:00 Test Item Value Reference Range Interpretation Comments Chloride Lvl (test code = Chloride Lvl) 113 95-109 [place] 663522-08-06 10:59:00 Test Item Value Reference Range Interpretation Comments CO2 (test code = CO2) 25 24-32 [facility]2022-08-06 10:59:00 Test Item Value Reference Range Interpretation Comments Calcium Lvl (test code = Calcium Lvl) 8.9 8.5-10.5 [facility]2022-08-06 10:59:00 Test Item Value Reference Range Interpretation Comments Total Protein (test code = Total 6.3 6.4-8.4 Protein) [facility]2022-08-06 10:59:00 Test Item Value Reference Range Interpretation Comments Albumin Lvl (test code = Albumin Lvl) 2.7 3.5-5.0 [facility]2022-08-06 10:59:00 Test Item Value Reference Range Interpretation Comments ALT (test code = ALT) 23 <=65 [facility]2022-08-06 10:59:00 Test Item Value Reference Range Interpretation Comments AST (test code = AST) 22 <=37 [facility]2022-08-06 10:59:00 Test Item Value Reference Range Interpretation Comments Alk Phos (test code = Alk Phos) 73 39-136 [facility]2022-08-06 10:59:00 Test Item Value Reference Range Interpretation Comments Bili Total (test code = Bili Total) 0.3 0.2-1.3 [facility]2022-08-06 10:59:00 Test Item Value Reference Range Interpretation Comments AGAP (test code = AGAP) 10.1 10.0-20.0 [place] 663522-08-06 10:59:00 Test Item Value Reference Range Interpretation Comments B/C Ratio (test code = B/C Ratio) 35 1 6-25 [place] 663522-08-06 10:59:00 Test Item Value Reference Range Interpretation Comments Globulin (test code = Globulin) 3.6 2.7-4.2 [facility]2022-08-06 10:59:00 Test Item Value Reference Range Interpretation Comments A/G Ratio (test code = A/G Ratio) 0.8 1 0.7-1.6 [facility]2022-08-06 10:59:00 Test Item Value Reference Range Interpretation Comments eGFR (test code = eGFR) 102 [facility] CypressVsenxqxSNUARXTXKX0619-98-61 10:59:00 Test Item Value Reference Range Interpretation Comments Segs (test code = Segs) 62.6 45.0-75.0 [place] 747592-08-06 10:59:00 Test Item Value Reference Range Interpretation Comments Lymphocytes (test code = Lymphocytes) 26.0 20.0-40.0 [place] 747592-08-06 10:59:00 Test Item Value Reference Range Interpretation Comments Monocytes (test code = Monocytes) 10.0 2.0-12.0 [place] [address]-08-06 10:59:00 Test Item Value Reference Range Interpretation Comments Eosinophils (test code = Eosinophils) 0.9 <=4.0 [place] [address]-08-06 10:59:00 Test Item Value Reference Range Interpretation Comments Basophils (test code = Basophils) 0.5 <=1.0 [facility] CypressLkfwtsiUOUNTKCKJB0018-10-85 10:59:00 Test Item Value Reference Range Interpretation Comments Neutrophils # (test code = Neutrophils 5.3 1.5-8.1 #) [facility] CypressIfhmuxuBVRFTBLIVN0357-64-18 10:59:00 Test Item Value Reference Range Interpretation Comments Lymphocytes # (test code = Lymphocytes 2.2 1.0-5.5 #) [facility] CypressDhhvyfuMQUKNXDWML9271-53-82 10:59:00 Test Item Value Reference Range Interpretation Comments Monocytes # (test code = Monocytes #) 0.8 <=0.8 [place] 747592-08-06 10:59:00 Test Item Value Reference Range Interpretation Comments Eosinophils # (test code = Eosinophils 0.1 <=0.5 #) [place] 747592-08-06 10:59:00 Test Item Value Reference Range Interpretation Comments WBC (test code = WBC) 8.4 3.7-10.4 [facility] CypressVfnnpkaGEAFQBELHH9386-18-47 10:59:00 Test Item Value Reference Range Interpretation Comments RBC (test code = RBC) 3.64 4.20-5.40 [facility] CypressWimsaqiYSYUYONWWF6505-35-27 10:59:00 Test Item Value Reference Range Interpretation Comments Hgb (test code = Hgb) 10.6 12.0-16.0 [place] 747592-08-06 10:59:00 Test Item Value Reference Range Interpretation Comments Hct (test code = Hct) 32.1 36.0-48.0 [facility] CypressGgesbhoTDIOHBYQHM9243-60-38 10:59:00 Test Item Value Reference Range Interpretation Comments MCV (test code = MCV) 88.3 80.0-98.0 [facility] CypressSzsdhhuUSKDHARXRE6759-03-57 10:59:00 Test Item Value Reference Range Interpretation Comments MCH (test code = MCH) 29.2 pg 27.0-31.0 [facility] CypressQjptpziCODESHLHCU9716-95-10 10:59:00 Test Item Value Reference Range Interpretation Comments MCHC (test code = MCHC) 33.1 32.0-36.0 [facility] CypressDpsgcbtMCCJEUPUPF6852-98-98 10:59:00 Test Item Value Reference Range Interpretation Comments RDW (test code = RDW) 14.2 11.5-14.5 [facility] CypressSdfiyofZXDVJMAKIN7346-38-91 10:59:00 Test Item Value Reference Range Interpretation Comments Platelet (test code = Platelet) 341 133-450 [facility] CypressJulxkyfALWUWJXZNK5931-30-10 10:59:00 Test Item Value Reference Range Interpretation Comments MPV (test code = MPV) 8.3 7.4-10.4 [facility]2022-08-06 10:59:00 Test Item Value Reference Range Interpretation Comments Glucose Lvl (test code = Glucose Lvl) 99 70-99 [facility]2022-08-06 10:59:00 Test Item Value Reference Range Interpretation Comments BUN (test code = BUN) 24 7-22 [facility]2022-08-06 10:59:00 Test Item Value Reference Range Interpretation Comments Creatinine Lvl (test code = Creatinine 0.68 0.50-1.40 Lvl) [facility]2022-08-06 10:59:00 Test Item Value Reference Range Interpretation Comments Sodium Lvl (test code = Sodium Lvl) 144 135-145 [facility] [id number] 10:59:00 Test Item Value Reference Range Interpretation Comments Potassium Lvl (test code = Potassium 4.1 3.5-5.1 Lvl) [facility] [address]EESYN4980-65-97 10:59:00 Test Item Value Reference Range Interpretation Comments Chloride Lvl (test code = Chloride Lvl) 113 95-109 [facility] [id number] 10:59:00 Test Item Value Reference Range Interpretation Comments CO2 (test code = CO2) 25 24-32 [facility] [id number] 10:59:00 Test Item Value Reference Range Interpretation Comments Calcium Lvl (test code = Calcium Lvl) 8.9 8.5-10.5 [facility] [id number] 10:59:00 Test Item Value Reference Range Interpretation Comments Total Protein (test code = Total 6.3 6.4-8.4 Protein) [facility] [id number] 10:59:00 Test Item Value Reference Range Interpretation Comments Albumin Lvl (test code = Albumin Lvl) 2.7 3.5-5.0 [facility] [id number] 10:59:00 Test Item Value Reference Range Interpretation Comments ALT (test code = ALT) 23 See_Comment [Auto mated message] The system which ge nerated this result transmit gill reference range : <=65. The reference range was not used to interpr et this result as len l/abnormal. [facility] [id number] 10:59:00 Test Item Value Reference Range Interpretation Comments AST (test code = AST) 22 See_Comment [Auto mated message] The system which ge nerated this result transmit gill reference range : <=37. The reference range was not used to interpr et this result as len l/abnormal. [facility] [id number] 10:59:00 Test Item Value Reference Range Interpretation Comments Alk Phos (test code = Alk Phos) 73 39-136 [facility] [id number] 10:59:00 Test Item Value Reference Range Interpretation Comments Bili Total (test code = Bili Total) 0.3 0.2-1.3 [place] 663522-08-06 10:59:00 Test Item Value Reference Range Interpretation Comments AGAP (test code = AGAP) 10.1 10.0-20.0 [place] 663522-08-06 10:59:00 Test Item Value Reference Range Interpretation Comments B/C Ratio (test code = B/C Ratio) 35 1 6-25 [place] 663522-08-06 10:59:00 Test Item Value Reference Range Interpretation Comments Globulin (test code = Globulin) 3.6 2.7-4.2 [place] 663522-08-06 10:59:00 Test Item Value Reference Range Interpretation Comments A/G Ratio (test code = A/G Ratio) 0.8 1 0.7-1.6 [place] [address]-08-06 10:59:00 Test Item Value Reference Range Interpretation Comments eGFR (test code = eGFR) 102 [facility] CypressNmzxexwKVDAOGHUWN8203-86-20 10:59:00 Test Item Value Reference Range Interpretation Comments Segs (test code = Segs) 62.6 45.0-75.0 [place] [address]-08-06 10:59:00 Test Item Value Reference Range Interpretation Comments Lymphocytes (test code = Lymphocytes) 26.0 20.0-40.0 [place] 747592-08-06 10:59:00 Test Item Value Reference Range Interpretation Comments Monocytes (test code = Monocytes) 10.0 2.0-12.0 [place] [address]-08-06 10:59:00 Test Item Value Reference Range Interpretation Comments Eosinophils (test code = 0.9 See_Comment [A utomated message] The Eosinophils) system which ge nerated this result tra nsmitted reference range : <=4.0. The reference r abdifatah was not used to int erpret this result as normal/abnormal . [place] [address]-08-06 10:59:00 Test Item Value Reference Range Interpretation Comments Basophils (test code = 0.5 See_Comment [Aut omated message] The Basophils) system which ge nerated this result tra nsmitted reference range : <=1.0. The reference r abdifatah was not used to int erpret this result as normal/abnormal . [place] [address]-08-06 10:59:00 Test Item Value Reference Range Interpretation Comments Neutrophils # (test code = Neutrophils 5.3 1.5-8.1 #) [facility] CypressTomjtojNJZRBAWJVM0716-08-21 10:59:00 Test Item Value Reference Range Interpretation Comments Lymphocytes # (test code = Lymphocytes 2.2 1.0-5.5 #) [facility] CypressKvawwzcQWOJJIWGEN0133-43-78 10:59:00 Test Item Value Reference Range Interpretation Comments Monocytes # (test code 0.8 See_Comment [Aut omated message] The = Monocytes #) system which generated this result tra nsmitted reference range : <=0.8. The reference r abdifatah was not used to int erpret this result as normal/abnormal . [facility] CypressLviogqjGEMVFEAZCI6595-49-78 10:59:00 Test Item Value Reference Range Interpretation Comments Eosinophils # (test code 0.1 See_Comment [A utomated message] The = Eosinophils #) system whic h generated this result tra nsmitted reference range : <=0.5. The reference r abdifatah was not used to int erpret this result as normal/abnormal . [facility] CypressDpjjqpdHROVMIIQBG7979-76-39 10:59:00 Test Item Value Reference Range Interpretation Comments WBC (test code = WBC) 8.4 3.7-10.4 [facility] CypressPmtolomGNWXAQLDDV0707-99-82 10:59:00 Test Item Value Reference Range Interpretation Comments RBC (test code = RBC) 3.64 4.20-5.40 [place] 747592-08-06 10:59:00 Test Item Value Reference Range Interpretation Comments Hgb (test code = Hgb) 10.6 12.0-16.0 [place] 747592-08-06 10:59:00 Test Item Value Reference Range Interpretation Comments Hct (test code = Hct) 32.1 36.0-48.0 [place] 747592-08-06 10:59:00 Test Item Value Reference Range Interpretation Comments MCV (test code = MCV) 88.3 80.0-98.0 [place] 747592-08-06 10:59:00 Test Item Value Reference Range Interpretation Comments MCH (test code = MCH) 29.2 pg 27.0-31.0 [place] 747592-08-06 10:59:00 Test Item Value Reference Range Interpretation Comments MCHC (test code = MCHC) 33.1 32.0-36.0 [place] 747592-08-06 10:59:00 Test Item Value Reference Range Interpretation Comments RDW (test code = RDW) 14.2 11.5-14.5 [place] 747592-08-06 10:59:00 Test Item Value Reference Range Interpretation Comments Platelet (test code = Platelet) 341 133-450 [facility] Cy[id number] 10:59:00 Test Item Value Reference Range Interpretation Comments MPV (test code = MPV) 8.3 7.4-10.4 [facility]2022-08-06 10:59:00 Test Item Value Reference Range Interpretation Comments Glucose Lvl (test code = Glucose Lvl) 99 70-99 [facility]2022-08-06 10:59:00 Test Item Value Reference Range Interpretation Comments BUN (test code = BUN) 24 7-22 [facility]2022-08-06 10:59:00 Test Item Value Reference Range Interpretation Comments Creatinine Lvl (test code = Creatinine 0.68 0.50-1.40 Lvl) [facility]2022-08-06 10:59:00 Test Item Value Reference Range Interpretation Comments Sodium Lvl (test code = Sodium Lvl) 144 135-145 [facility]2022-08-06 10:59:00 Test Item Value Reference Range Interpretation Comments Potassium Lvl (test code = Potassium 4.1 3.5-5.1 Lvl) [facility]2022-08-06 10:59:00 Test Item Value Reference Range Interpretation Comments Chloride Lvl (test code = Chloride Lvl) 113 95-109 [place] 663522-08-06 10:59:00 Test Item Value Reference Range Interpretation Comments CO2 (test code = CO2) 25 24-32 [facility]2022-08-06 10:59:00 Test Item Value Reference Range Interpretation Comments Calcium Lvl (test code = Calcium Lvl) 8.9 8.5-10.5 [facility] [facility]2022-08-06 10:59:00 Test Item Value Reference Range Interpretation Comments Total Protein (test code = Total 6.3 6.4-8.4 Protein) [place] 663522-08-06 10:59:00 Test Item Value Reference Range Interpretation Comments Albumin Lvl (test code = Albumin Lvl) 2.7 3.5-5.0 [place] 663522-08-06 10:59:00 Test Item Value Reference Range Interpretation Comments ALT (test code = ALT) 23 See_Comment [Auto mated message] The system which ge nerated this result transmit gill reference range : <=65. The reference range was not used to interpr et this result as len l/abnormal. [facility]2022-08-06 10:59:00 Test Item Value Reference Range Interpretation Comments AST (test code = AST) 22 See_Comment [Auto mated message] The system which ge nerated this result transmit gill reference range : <=37. The reference range was not used to interpr et this result as len l/abnormal. [place] 663522-08-06 10:59:00 Test Item Value Reference Range Interpretation Comments Alk Phos (test code = Alk Phos) 73 39-136 [facility]2022-08-06 10:59:00 Test Item Value Reference Range Interpretation Comments Bili Total (test code = Bili Total) 0.3 0.2-1.3 [facility]2022-08-06 10:59:00 Test Item Value Reference Range Interpretation Comments AGAP (test code = AGAP) 10.1 10.0-20.0 [place] 663522-08-06 10:59:00 Test Item Value Reference Range Interpretation Comments B/C Ratio (test code = B/C Ratio) 35 1 6-25 [place] 663522-08-06 10:59:00 Test Item Value Reference Range Interpretation Comments Globulin (test code = Globulin) 3.6 2.7-4.2 [place] 663522-08-06 10:59:00 Test Item Value Reference Range Interpretation Comments A/G Ratio (test code = A/G Ratio) 0.8 1 0.7-1.6 [place] 663522-08-06 10:59:00 Test Item Value Reference Range Interpretation Comments eGFR (test code = eGFR) 102 [facility] 10:59:00 Test Item Value Reference Range Interpretation Comments Segs (test code = Segs) 62.6 45.0-75.0 [place] 747592-08-06 10:59:00 Test Item Value Reference Range Interpretation Comments Lymphocytes (test code = Lymphocytes) 26.0 20.0-40.0 [place] 747592-08-06 10:59:00 Test Item Value Reference Range Interpretation Comments Monocytes (test code = Monocytes) 10.0 2.0-12.0 [place] 747592-08-06 10:59:00 Test Item Value Reference Range Interpretation Comments Eosinophils (test code = 0.9 See_Comment [A utomated message] The Eosinophils) system which ge nerated this result tra nsmitted reference range : <=4.0. The reference r abdifatah was not used to int erpret this result as normal/abnormal . [place] 747592-08-06 10:59:00 Test Item Value Reference Range Interpretation Comments Basophils (test code = 0.5 See_Comment [Aut omated message] The Basophils) system which ge nerated this result tra nsmitted reference range : <=1.0. The reference r abdifatah was not used to int erpret this result as normal/abnormal . [facility]nypakeKNZFUZCMQV8283-50-15 10:59:00 Test Item Value Reference Range Interpretation Comments Neutrophils # (test code = Neutrophils 5.3 1.5-8.1 #) [place] 747592-08-06 10:59:00 Test Item Value Reference Range Interpretation Comments Lymphocytes # (test code = Lymphocytes 2.2 1.0-5.5 #) [place] 747592-08-06 10:59:00 Test Item Value Reference Range Interpretation Comments Monocytes # (test code 0.8 See_Comment [Aut omated message] The = Monocytes #) system which generated this result tra nsmitted reference range : <=0.8. The reference r abdifatah was not used to int erpret this result as normal/abnormal . [place] 747592-08-06 10:59:00 Test Item Value Reference Range Interpretation Comments Eosinophils # (test code 0.1 See_Comment [A utomated message] The = Eosinophils #) system ic h generated this result tra nsmitted reference range : <=0.5. The reference r abdifatah was not used to int erpret this result as normal/abnormal . [facility]ressLhkoobhUEUPUWXZOY2607-76-44 10:59:00 Test Item Value Reference Range Interpretation Comments WBC (test code = WBC) 8.4 3.7-10.4 [facility] CypressUzitzlpDLOJIXEJFC0265-58-68 10:59:00 Test Item Value Reference Range Interpretation Comments RBC (test code = RBC) 3.64 4.20-5.40 [facility]ressGnkcclqELMJJNKTGT4641-32-37 10:59:00 Test Item Value Reference Range Interpretation Comments Hgb (test code = Hgb) 10.6 12.0-16.0 [facility] CypressMbbenysRSQOYYMKYG0986-42-31 10:59:00 Test Item Value Reference Range Interpretation Comments Hct (test code = Hct) 32.1 36.0-48.0 [facility]ressGcfvsttKBQEFTNMUE3878-35-59 10:59:00 Test Item Value Reference Range Interpretation Comments MCV (test code = MCV) 88.3 80.0-98.0 [place] 747592-08-06 10:59:00 Test Item Value Reference Range Interpretation Comments MCH (test code = MCH) 29.2 pg 27.0-31.0 [facility] CypressEbjpcxrECWSFYSDNQ0743-53-40 10:59:00 Test Item Value Reference Range Interpretation Comments MCHC (test code = MCHC) 33.1 32.0-36.0 [facility] CypressGeabsrgLRJXZNDEPB8272-02-99 10:59:00 Test Item Value Reference Range Interpretation Comments RDW (test code = RDW) 14.2 11.5-14.5 [facility] CypressWrukrcqMUVSPDAIMK4866-71-82 10:59:00 Test Item Value Reference Range Interpretation Comments Platelet (test code = Platelet) 341 133-450 [facility] CypressDxywqsfIYFDICWOYA1637-01-07 10:59:00 Test Item Value Reference Range Interpretation Comments MPV (test code = MPV) 8.3 7.4-10.4 [facility]2022-08-06 10:59:00 Test Item Value Reference Range Interpretation Comments Glucose Lvl (test code = Glucose Lvl) 99 70-99 [facility]2022-08-06 10:59:00 Test Item Value Reference Range Interpretation Comments BUN (test code = BUN) 24 7-22 [facility]2022-08-06 10:59:00 Test Item Value Reference Range Interpretation Comments Creatinine Lvl (test code = Creatinine 0.68 0.50-1.40 Lvl) [place] 663522-08-06 10:59:00 Test Item Value Reference Range Interpretation Comments Sodium Lvl (test code = Sodium Lvl) 144 135-145 [place] 663522-08-06 10:59:00 Test Item Value Reference Range Interpretation Comments Potassium Lvl (test code = Potassium 4.1 3.5-5.1 Lvl) [place] 663522-08-06 10:59:00 Test Item Value Reference Range Interpretation Comments Chloride Lvl (test code = Chloride Lvl) 113 95-109 [place] 663522-08-06 10:59:00 Test Item Value Reference Range Interpretation Comments CO2 (test code = CO2) 25 24-32 [place] 663522-08-06 10:59:00 Test Item Value Reference Range Interpretation Comments Calcium Lvl (test code = Calcium Lvl) 8.9 8.5-10.5 [place] 663522-08-06 10:59:00 Test Item Value Reference Range Interpretation Comments Total Protein (test code = Total 6.3 6.4-8.4 Protein) [place] 663522-08-06 10:59:00 Test Item Value Reference Range Interpretation Comments Albumin Lvl (test code = Albumin Lvl) 2.7 3.5-5.0 [place] 663522-08-06 10:59:00 Test Item Value Reference Range Interpretation Comments ALT (test code = ALT) 23 See_Comment [Auto mated message] The system which ge nerated this result transmit gill reference range : <=65. The reference range was not used to interpr et this result as len l/abnormal. [place] 663522-08-06 10:59:00 Test Item Value Reference Range Interpretation Comments AST (test code = AST) 22 See_Comment [Auto mated message] The system which ge nerated this result transmit gill reference range : <=37. The reference range was not used to interpr et this result as len l/abnormal. [place] 663522-08-06 10:59:00 Test Item Value Reference Range Interpretation Comments Alk Phos (test code = Alk Phos) 73 39-136 [place] 663522-08-06 10:59:00 Test Item Value Reference Range Interpretation Comments Bili Total (test code = Bili Total) 0.3 0.2-1.3 [place] 663522-08-06 10:59:00 Test Item Value Reference Range Interpretation Comments AGAP (test code = AGAP) 10.1 10.0-20.0 [place] 663522-08-06 10:59:00 Test Item Value Reference Range Interpretation Comments B/C Ratio (test code = B/C Ratio) 35 1 6-25 [place] 663522-08-06 10:59:00 Test Item Value Reference Range Interpretation Comments Globulin (test code = Globulin) 3.6 2.7-4.2 [place] 663522-08-06 10:59:00 Test Item Value Reference Range Interpretation Comments A/G Ratio (test code = A/G Ratio) 0.8 1 0.7-1.6 [place] 663522-08-06 10:59:00 Test Item Value Reference Range Interpretation Comments eGFR (test code = eGFR) 102 [facility]ressUzjpjxzZWFNXQSEJV7528-92-05 10:59:00 Test Item Value Reference Range Interpretation Comments Segs (test code = Segs) 62.6 45.0-75.0 [place] 747592-08-06 10:59:00 Test Item Value Reference Range Interpretation Comments Lymphocytes (test code = Lymphocytes) 26.0 20.0-40.0 [place] 747592-08-06 10:59:00 Test Item Value Reference Range Interpretation Comments Monocytes (test code = Monocytes) 10.0 2.0-12.0 [place] [address]-08-06 10:59:00 Test Item Value Reference Range Interpretation Comments Eosinophils (test code = 0.9 See_Comment [A utomated message] The Eosinophils) system which ge nerated this result tra nsmitted reference range : <=4.0. The reference r abdifatah was not used to int erpret this result as normal/abnormal . [place] [address]-08-06 10:59:00 Test Item Value Reference Range Interpretation Comments Basophils (test code = 0.5 See_Comment [Aut omated message] The Basophils) system which ge nerated this result tra nsmitted reference range : <=1.0. The reference r abdifatah was not used to int erpret this result as normal/abnormal . [facility] CypressBmkzidwTKCXSATRUQ1980-34-57 10:59:00 Test Item Value Reference Range Interpretation Comments Neutrophils # (test code = Neutrophils 5.3 1.5-8.1 #) [facility] CypressAjhvdtcZAISFPQYAL1038-44-54 10:59:00 Test Item Value Reference Range Interpretation Comments Lymphocytes # (test code = Lymphocytes 2.2 1.0-5.5 #) [facility] CypressQgbnojqEGZEJZLUAW7206-85-05 10:59:00 Test Item Value Reference Range Interpretation Comments Monocytes # (test code 0.8 See_Comment [Aut omated message] The = Monocytes #) system which generated this result tra nsmitted reference range : <=0.8. The reference r abdifatah was not used to int erpret this result as normal/abnormal . [facility] CypressVatbqtrJYCRSKNKTF0163-21-48 10:59:00 Test Item Value Reference Range Interpretation Comments Eosinophils # (test code 0.1 See_Comment [A utomated message] The = Eosinophils #) system whic h generated this result tra nsmitted reference range : <=0.5. The reference r abdifatah was not used to int erpret this result as normal/abnormal . [facility]ressXlnwkalEXAVUPKRAL1658-17-48 10:59:00 Test Item Value Reference Range Interpretation Comments WBC (test code = WBC) 8.4 3.7-10.4 [facility] CypressAipkafiPSRXKJZWFB7546-53-52 10:59:00 Test Item Value Reference Range Interpretation Comments RBC (test code = RBC) 3.64 4.20-5.40 [place] 747592-08-06 10:59:00 Test Item Value Reference Range Interpretation Comments Hgb (test code = Hgb) 10.6 12.0-16.0 [place] [address]-08-06 10:59:00 Test Item Value Reference Range Interpretation Comments Hct (test code = Hct) 32.1 36.0-48.0 [place] [address]-08-06 10:59:00 Test Item Value Reference Range Interpretation Comments MCV (test code = MCV) 88.3 80.0-98.0 [place] [address]-08-06 10:59:00 Test Item Value Reference Range Interpretation Comments MCH (test code = MCH) 29.2 pg 27.0-31.0 [place] 747592-08-06 10:59:00 Test Item Value Reference Range Interpretation Comments MCHC (test code = MCHC) 33.1 32.0-36.0 [place] 747592-08-06 10:59:00 Test Item Value Reference Range Interpretation Comments RDW (test code = RDW) 14.2 11.5-14.5 [facility]ressXplqjmxROHKFMGSAC3587-55-63 10:59:00 Test Item Value Reference Range Interpretation Comments Platelet (test code = Platelet) 341 133-450 [facility] CypressDcbjnqsXYHZHHNNGU4189-59-97 10:59:00 Test Item Value Reference Range Interpretation Comments MPV (test code = MPV) 8.3 7.4-10.4 [facility]2022-07-15 10:48:00 Test Item Value Reference Range Interpretation Comments Glucose Lvl (test code = Glucose Lvl) 108 70-99 [facility]2022-07-15 10:48:00 Test Item Value Reference Range Interpretation Comments BUN (test code = BUN) 17 7-22 [facility]2022-07-15 10:48:00 Test Item Value Reference Range Interpretation Comments Creatinine Lvl (test code = Creatinine 0.57 0.50-1.40 Lvl) [facility]2022-07-15 10:48:00 Test Item Value Reference Range Interpretation Comments Sodium Lvl (test code = Sodium Lvl) 145 135-145 [facility]2022-07-15 10:48:00 Test Item Value Reference Range Interpretation Comments Potassium Lvl (test code = Potassium 4.0 3.5-5.1 Lvl) [place] 663522-07-15 10:48:00 Test Item Value Reference Range Interpretation Comments Chloride Lvl (test code = Chloride Lvl) 113 95-109 [facility]2022-07-15 10:48:00 Test Item Value Reference Range Interpretation Comments CO2 (test code = CO2) 27 24-32 [place] 663522-07-15 10:48:00 Test Item Value Reference Range Interpretation Comments Calcium Lvl (test code = Calcium Lvl) 9.0 8.5-10.5 [place] 663522-07-15 10:48:00 Test Item Value Reference Range Interpretation Comments AGAP (test code = AGAP) 9.0 10.0-20.0 [facility]2022-07-15 10:48:00 Test Item Value Reference Range Interpretation Comments eGFR (test code = eGFR) 107 [facility] CypressRsuicafGJPGYNBGGN1501-49-21 10:48:00 Test Item Value Reference Range Interpretation Comments WBC (test code = WBC) 8.5 3.7-10.4 [facility] CypressTbgmknxCWRMTGJTMZ6304-66-44 10:48:00 Test Item Value Reference Range Interpretation Comments RBC (test code = RBC) 3.55 4.20-5.40 [facility] CypressDydrpkmOEUULIDKQC9430-18-32 10:48:00 Test Item Value Reference Range Interpretation Comments Hgb (test code = Hgb) 10.5 12.0-16.0 [facility] CypressRgbakodUUAADFDOUL6246-95-02 10:48:00 Test Item Value Reference Range Interpretation Comments Hct (test code = Hct) 31.2 36.0-48.0 [facility] CypressLwvhkynAZZNOKPWUE4639-27-32 10:48:00 Test Item Value Reference Range Interpretation Comments MCV (test code = MCV) 88.0 80.0-98.0 [facility] CypressNacxleiACXYPLFNSS8437-87-77 10:48:00 Test Item Value Reference Range Interpretation Comments MCH (test code = MCH) 29.6 pg 27.0-31.0 [facility] CypressOtlbbapUZGBMILDKJ6441-67-64 10:48:00 Test Item Value Reference Range Interpretation Comments MCHC (test code = MCHC) 33.6 32.0-36.0 [facility] CypressAbjrpszFTSNUSAKLI2075-70-61 10:48:00 Test Item Value Reference Range Interpretation Comments RDW (test code = RDW) 14.3 11.5-14.5 [facility] CypressMaxjwxpQPEKHANPPG1125-64-34 10:48:00 Test Item Value Reference Range Interpretation Comments Platelet (test code = Platelet) 212 133-450 [facility] CypressUwebtyjOBCWIMJOJD2433-19-21 10:48:00 Test Item Value Reference Range Interpretation Comments MPV (test code = MPV) 8.3 7.4-10.4 [facility]2022-07-15 10:48:00 Test Item Value Reference Range Interpretation Comments Glucose Lvl (test code = Glucose Lvl) 108 70-99 [place] 663522-07-15 10:48:00 Test Item Value Reference Range Interpretation Comments BUN (test code = BUN) 17 7-22 [place] 663522-07-15 10:48:00 Test Item Value Reference Range Interpretation Comments Creatinine Lvl (test code = Creatinine 0.57 0.50-1.40 Lvl) [place] 663522-07-15 10:48:00 Test Item Value Reference Range Interpretation Comments Sodium Lvl (test code = Sodium Lvl) 145 135-145 [place] 663522-07-15 10:48:00 Test Item Value Reference Range Interpretation Comments Potassium Lvl (test code = Potassium 4.0 3.5-5.1 Lvl) [place] 663522-07-15 10:48:00 Test Item Value Reference Range Interpretation Comments Chloride Lvl (test code = Chloride Lvl) 113 95-109 [place] 663522-07-15 10:48:00 Test Item Value Reference Range Interpretation Comments CO2 (test code = CO2) 27 24-32 [place] 663522-07-15 10:48:00 Test Item Value Reference Range Interpretation Comments Calcium Lvl (test code = Calcium Lvl) 9.0 8.5-10.5 [place] 663522-07-15 10:48:00 Test Item Value Reference Range Interpretation Comments AGAP (test code = AGAP) 9.0 10.0-20.0 [place] 663522-07-15 10:48:00 Test Item Value Reference Range Interpretation Comments eGFR (test code = eGFR) 107 [place]7592-07-15 10:48:00 Test Item Value Reference Range Interpretation Comments WBC (test code = WBC) 8.5 3.7-10.4 [place] [address]-07-15 10:48:00 Test Item Value Reference Range Interpretation Comments RBC (test code = RBC) 3.55 4.20-5.40 [place]7592-07-15 10:48:00 Test Item Value Reference Range Interpretation Comments Hgb (test code = Hgb) 10.5 12.0-16.0 [place] 747592-07-15 10:48:00 Test Item Value Reference Range Interpretation Comments Hct (test code = Hct) 31.2 36.0-48.0 [place] [address]-07-15 10:48:00 Test Item Value Reference Range Interpretation Comments MCV (test code = MCV) 88.0 80.0-98.0 [place]7592-07-15 10:48:00 Test Item Value Reference Range Interpretation Comments MCH (test code = MCH) 29.6 pg 27.0-31.0 [place] 747592-07-15 10:48:00 Test Item Value Reference Range Interpretation Comments MCHC (test code = MCHC) 33.6 32.0-36.0 [place]7592-07-15 10:48:00 Test Item Value Reference Range Interpretation Comments RDW (test code = RDW) 14.3 11.5-14.5 [place] [address]-07-15 10:48:00 Test Item Value Reference Range Interpretation Comments Platelet (test code = Platelet) 212 133-450 [facility] CypressDaekakwHWIGNGKCVK4516-17-78 10:48:00 Test Item Value Reference Range Interpretation Comments MPV (test code = MPV) 8.3 7.4-10.4 [facility]2022-07-15 10:48:00 Test Item Value Reference Range Interpretation Comments Glucose Lvl (test code = Glucose Lvl) 108 70-99 [facility]2022-07-15 10:48:00 Test Item Value Reference Range Interpretation Comments BUN (test code = BUN) 17 7-22 [place] 663522-07-15 10:48:00 Test Item Value Reference Range Interpretation Comments Creatinine Lvl (test code = Creatinine 0.57 0.50-1.40 Lvl) [place] 663522-07-15 10:48:00 Test Item Value Reference Range Interpretation Comments Sodium Lvl (test code = Sodium Lvl) 145 135-145 [facility]2022-07-15 10:48:00 Test Item Value Reference Range Interpretation Comments Potassium Lvl (test code = Potassium 4.0 3.5-5.1 Lvl) [place] 663522-07-15 10:48:00 Test Item Value Reference Range Interpretation Comments Chloride Lvl (test code = Chloride Lvl) 113 95-109 [place] 663522-07-15 10:48:00 Test Item Value Reference Range Interpretation Comments CO2 (test code = CO2) 27 24-32 [place] 663522-07-15 10:48:00 Test Item Value Reference Range Interpretation Comments Calcium Lvl (test code = Calcium Lvl) 9.0 8.5-10.5 [facility]2022-07-15 10:48:00 Test Item Value Reference Range Interpretation Comments AGAP (test code = AGAP) 9.0 10.0-20.0 [facility]2022-07-15 10:48:00 Test Item Value Reference Range Interpretation Comments eGFR (test code = eGFR) 107 [facility]ressXzrjoruZFNUIQPVAJ0757-73-77 10:48:00 Test Item Value Reference Range Interpretation Comments WBC (test code = WBC) 8.5 3.7-10.4 [place]7592-07-15 10:48:00 Test Item Value Reference Range Interpretation Comments RBC (test code = RBC) 3.55 4.20-5.40 [facility] CypressGgcabozHWIZXJCCCH3454-06-92 10:48:00 Test Item Value Reference Range Interpretation Comments Hgb (test code = Hgb) 10.5 12.0-16.0 [facility] CypressMeklmvmLYTMUFSCGB2679-08-74 10:48:00 Test Item Value Reference Range Interpretation Comments Hct (test code = Hct) 31.2 36.0-48.0 [place]7592-07-15 10:48:00 Test Item Value Reference Range Interpretation Comments MCV (test code = MCV) 88.0 80.0-98.0 [place]7592-07-15 10:48:00 Test Item Value Reference Range Interpretation Comments MCH (test code = MCH) 29.6 pg 27.0-31.0 [place] 747592-07-15 10:48:00 Test Item Value Reference Range Interpretation Comments MCHC (test code = MCHC) 33.6 32.0-36.0 [place] 747592-07-15 10:48:00 Test Item Value Reference Range Interpretation Comments RDW (test code = RDW) 14.3 11.5-14.5 [place]7592-07-15 10:48:00 Test Item Value Reference Range Interpretation Comments Platelet (test code = Platelet) 212 133-450 [place]7592-07-15 10:48:00 Test Item Value Reference Range Interpretation Comments MPV (test code = MPV) 8.3 7.4-10.4 [place] 663522-07-15 10:48:00 Test Item Value Reference Range Interpretation Comments Glucose Lvl (test code = Glucose Lvl) 108 70-99 [place] 663522-07-15 10:48:00 Test Item Value Reference Range Interpretation Comments BUN (test code = BUN) 17 7-22 [place] 663522-07-15 10:48:00 Test Item Value Reference Range Interpretation Comments Creatinine Lvl (test code = Creatinine 0.57 0.50-1.40 Lvl) [place] 663522-07-15 10:48:00 Test Item Value Reference Range Interpretation Comments Sodium Lvl (test code = Sodium Lvl) 145 135-145 [place] 663522-07-15 10:48:00 Test Item Value Reference Range Interpretation Comments Potassium Lvl (test code = Potassium 4.0 3.5-5.1 Lvl) [place] 663522-07-15 10:48:00 Test Item Value Reference Range Interpretation Comments Chloride Lvl (test code = Chloride Lvl) 113 95-109 [place] 663522-07-15 10:48:00 Test Item Value Reference Range Interpretation Comments CO2 (test code = CO2) 27 24-32 [place] 663522-07-15 10:48:00 Test Item Value Reference Range Interpretation Comments Calcium Lvl (test code = Calcium Lvl) 9.0 8.5-10.5 [place] 663522-07-15 10:48:00 Test Item Value Reference Range Interpretation Comments AGAP (test code = AGAP) 9.0 10.0-20.0 [place] 663522-07-15 10:48:00 Test Item Value Reference Range Interpretation Comments eGFR (test code = eGFR) 107 [place]7592-07-15 10:48:00 Test Item Value Reference Range Interpretation Comments WBC (test code = WBC) 8.5 3.7-10.4 [place]7592-07-15 10:48:00 Test Item Value Reference Range Interpretation Comments RBC (test code = RBC) 3.55 4.20-5.40 [place]7592-07-15 10:48:00 Test Item Value Reference Range Interpretation Comments Hgb (test code = Hgb) 10.5 12.0-16.0 [place]7592-07-15 10:48:00 Test Item Value Reference Range Interpretation Comments Hct (test code = Hct) 31.2 36.0-48.0 [place]7592-07-15 10:48:00 Test Item Value Reference Range Interpretation Comments MCV (test code = MCV) 88.0 80.0-98.0 [place]7592-07-15 10:48:00 Test Item Value Reference Range Interpretation Comments MCH (test code = MCH) 29.6 pg 27.0-31.0 [place] 747592-07-15 10:48:00 Test Item Value Reference Range Interpretation Comments MCHC (test code = MCHC) 33.6 32.0-36.0 [place] 747592-07-15 10:48:00 Test Item Value Reference Range Interpretation Comments RDW (test code = RDW) 14.3 11.5-14.5 [place]7592-07-15 10:48:00 Test Item Value Reference Range Interpretation Comments Platelet (test code = Platelet) 212 133-450 [facility] CypressYumkkwoRXAZQASVYA8755-70-60 10:48:00 Test Item Value Reference Range Interpretation Comments MPV (test code = MPV) 8.3 7.4-10.4 [facility]2022-07-15 10:48:00 Test Item Value Reference Range Interpretation Comments Glucose Lvl (test code = Glucose Lvl) 108 70-99 [facility]2022-07-15 10:48:00 Test Item Value Reference Range Interpretation Comments BUN (test code = BUN) 17 7-22 [facility]2022-07-15 10:48:00 Test Item Value Reference Range Interpretation Comments Creatinine Lvl (test code = Creatinine 0.57 0.50-1.40 Lvl) [facility]2022-07-15 10:48:00 Test Item Value Reference Range Interpretation Comments Sodium Lvl (test code = Sodium Lvl) 145 135-145 [place] 663522-07-15 10:48:00 Test Item Value Reference Range Interpretation Comments Potassium Lvl (test code = Potassium 4.0 3.5-5.1 Lvl) [place] 663522-07-15 10:48:00 Test Item Value Reference Range Interpretation Comments Chloride Lvl (test code = Chloride Lvl) 113 95-109 [place] 663522-07-15 10:48:00 Test Item Value Reference Range Interpretation Comments CO2 (test code = CO2) 27 24-32 [place] 663522-07-15 10:48:00 Test Item Value Reference Range Interpretation Comments Calcium Lvl (test code = Calcium Lvl) 9.0 8.5-10.5 [place] 663522-07-15 10:48:00 Test Item Value Reference Range Interpretation Comments AGAP (test code = AGAP) 9.0 10.0-20.0 [facility]2022-07-15 10:48:00 Test Item Value Reference Range Interpretation Comments eGFR (test code = eGFR) 107 [facility]gdsnygXSSEVWOKAZ6766-97-43 10:48:00 Test Item Value Reference Range Interpretation Comments WBC (test code = WBC) 8.5 3.7-10.4 [place] 747592-07-15 10:48:00 Test Item Value Reference Range Interpretation Comments RBC (test code = RBC) 3.55 4.20-5.40 [place] 747592-07-15 10:48:00 Test Item Value Reference Range Interpretation Comments Hgb (test code = Hgb) 10.5 12.0-16.0 [place] 747592-07-15 10:48:00 Test Item Value Reference Range Interpretation Comments Hct (test code = Hct) 31.2 36.0-48.0 [place] [address]-07-15 10:48:00 Test Item Value Reference Range Interpretation Comments MCV (test code = MCV) 88.0 80.0-98.0 [place] [address]-07-15 10:48:00 Test Item Value Reference Range Interpretation Comments MCH (test code = MCH) 29.6 pg 27.0-31.0 [place] 747592-07-15 10:48:00 Test Item Value Reference Range Interpretation Comments MCHC (test code = MCHC) 33.6 32.0-36.0 [facility]ressSadvbgnIEQKSILGFL6717-65-74 10:48:00 Test Item Value Reference Range Interpretation Comments RDW (test code = RDW) 14.3 11.5-14.5 [facility]ressSzywgzlYROLMCCKFB4657-54-55 10:48:00 Test Item Value Reference Range Interpretation Comments Platelet (test code = Platelet) 212 133-450 [facility]ressAjdxgmdSDNDVEHKHW7253-09-52 10:48:00 Test Item Value Reference Range Interpretation Comments MPV (test code = MPV) 8.3 7.4-10.4 [facility]2022-07-15 10:48:00 Test Item Value Reference Range Interpretation Comments Glucose Lvl (test code = Glucose Lvl) 108 70-99 [facility]2022-07-15 10:48:00 Test Item Value Reference Range Interpretation Comments BUN (test code = BUN) 17 7-22 [facility]2022-07-15 10:48:00 Test Item Value Reference Range Interpretation Comments Creatinine Lvl (test code = Creatinine 0.57 0.50-1.40 Lvl) [facility]2022-07-15 10:48:00 Test Item Value Reference Range Interpretation Comments Sodium Lvl (test code = Sodium Lvl) 145 135-145 [facility]2022-07-15 10:48:00 Test Item Value Reference Range Interpretation Comments Potassium Lvl (test code = Potassium 4.0 3.5-5.1 Lvl) [facility]2022-07-15 10:48:00 Test Item Value Reference Range Interpretation Comments Chloride Lvl (test code = Chloride Lvl) 113 95-109 [facility]2022-07-15 10:48:00 Test Item Value Reference Range Interpretation Comments CO2 (test code = CO2) 27 24-32 [facility]2022-07-15 10:48:00 Test Item Value Reference Range Interpretation Comments Calcium Lvl (test code = Calcium Lvl) 9.0 8.5-10.5 [place] 663522-07-15 10:48:00 Test Item Value Reference Range Interpretation Comments AGAP (test code = AGAP) 9.0 10.0-20.0 [facility]2022-07-15 10:48:00 Test Item Value Reference Range Interpretation Comments eGFR (test code = eGFR) 107 [facility] CypressLlaepekNHXLTBVBOB7790-83-76 10:48:00 Test Item Value Reference Range Interpretation Comments WBC (test code = WBC) 8.5 3.7-10.4 [facility] CypressTjemlqyQBUQPYANWU2895-21-37 10:48:00 Test Item Value Reference Range Interpretation Comments RBC (test code = RBC) 3.55 4.20-5.40 [facility] CypressXdsnituSKLACDREGP9945-81-10 10:48:00 Test Item Value Reference Range Interpretation Comments Hgb (test code = Hgb) 10.5 12.0-16.0 [place] 747592-07-15 10:48:00 Test Item Value Reference Range Interpretation Comments Hct (test code = Hct) 31.2 36.0-48.0 [facility] CypressKewujjkWTRZSRCJSG8166-46-86 10:48:00 Test Item Value Reference Range Interpretation Comments MCV (test code = MCV) 88.0 80.0-98.0 [facility] CypressNfgcvswPNUUTSAPWN3917-24-29 10:48:00 Test Item Value Reference Range Interpretation Comments MCH (test code = MCH) 29.6 pg 27.0-31.0 [facility] CypressGeyhchoRXTWSNXZSI9142-21-83 10:48:00 Test Item Value Reference Range Interpretation Comments MCHC (test code = MCHC) 33.6 32.0-36.0 [facility] CypressKhdjvoiTPQHFYQDPW0590-60-79 10:48:00 Test Item Value Reference Range Interpretation Comments RDW (test code = RDW) 14.3 11.5-14.5 [facility] CypressBtzicqqGLGWBICROQ5736-13-24 10:48:00 Test Item Value Reference Range Interpretation Comments Platelet (test code = Platelet) 212 133-450 [facility] CypressSdrzgzhCKKJZBBZXO5734-02-20 10:48:00 Test Item Value Reference Range Interpretation Comments MPV (test code = MPV) 8.3 7.4-10.4 [facility]2022-07-15 10:48:00 Test Item Value Reference Range Interpretation Comments Glucose Lvl (test code = Glucose Lvl) 108 70-99 [facility]2022-07-15 10:48:00 Test Item Value Reference Range Interpretation Comments BUN (test code = BUN) 17 7-22 [place] 663522-07-15 10:48:00 Test Item Value Reference Range Interpretation Comments Creatinine Lvl (test code = Creatinine 0.57 0.50-1.40 Lvl) [place] 663522-07-15 10:48:00 Test Item Value Reference Range Interpretation Comments Sodium Lvl (test code = Sodium Lvl) 145 135-145 [place] 663522-07-15 10:48:00 Test Item Value Reference Range Interpretation Comments Potassium Lvl (test code = Potassium 4.0 3.5-5.1 Lvl) [place] 663522-07-15 10:48:00 Test Item Value Reference Range Interpretation Comments Chloride Lvl (test code = Chloride Lvl) 113 95-109 [place] 663522-07-15 10:48:00 Test Item Value Reference Range Interpretation Comments CO2 (test code = CO2) 27 24-32 [place] 663522-07-15 10:48:00 Test Item Value Reference Range Interpretation Comments Calcium Lvl (test code = Calcium Lvl) 9.0 8.5-10.5 [place] 663522-07-15 10:48:00 Test Item Value Reference Range Interpretation Comments AGAP (test code = AGAP) 9.0 10.0-20.0 [place] 663522-07-15 10:48:00 Test Item Value Reference Range Interpretation Comments eGFR (test code = eGFR) 107 [place] 747592-07-15 10:48:00 Test Item Value Reference Range Interpretation Comments WBC (test code = WBC) 8.5 3.7-10.4 [place] 747592-07-15 10:48:00 Test Item Value Reference Range Interpretation Comments RBC (test code = RBC) 3.55 4.20-5.40 [place] [address]-07-15 10:48:00 Test Item Value Reference Range Interpretation Comments Hgb (test code = Hgb) 10.5 12.0-16.0 [place] [address]-07-15 10:48:00 Test Item Value Reference Range Interpretation Comments Hct (test code = Hct) 31.2 36.0-48.0 [place] 747592-07-15 10:48:00 Test Item Value Reference Range Interpretation Comments MCV (test code = MCV) 88.0 80.0-98.0 [place] [address]-07-15 10:48:00 Test Item Value Reference Range Interpretation Comments MCH (test code = MCH) 29.6 pg 27.0-31.0 [facility] CypressYmoxhpuEAYDBENDJW6270-87-23 10:48:00 Test Item Value Reference Range Interpretation Comments MCHC (test code = MCHC) 33.6 32.0-36.0 [place] 747592-07-15 10:48:00 Test Item Value Reference Range Interpretation Comments RDW (test code = RDW) 14.3 11.5-14.5 [place] 747592-07-15 10:48:00 Test Item Value Reference Range Interpretation Comments Platelet (test code = Platelet) 212 133-450 [facility] CypressXuzkasySNZSBRIEGK8490-92-13 10:48:00 Test Item Value Reference Range Interpretation Comments MPV (test code = MPV) 8.3 7.4-10.4 [facility]2022-07-15 10:48:00 Test Item Value Reference Range Interpretation Comments Glucose Lvl (test code = Glucose Lvl) 108 70-99 [facility]2022-07-15 10:48:00 Test Item Value Reference Range Interpretation Comments BUN (test code = BUN) 17 7-22 [facility]2022-07-15 10:48:00 Test Item Value Reference Range Interpretation Comments Creatinine Lvl (test code = Creatinine 0.57 0.50-1.40 Lvl) [facility]2022-07-15 10:48:00 Test Item Value Reference Range Interpretation Comments Sodium Lvl (test code = Sodium Lvl) 145 135-145 [facility]2022-07-15 10:48:00 Test Item Value Reference Range Interpretation Comments Potassium Lvl (test code = Potassium 4.0 3.5-5.1 Lvl) [place] 663522-07-15 10:48:00 Test Item Value Reference Range Interpretation Comments Chloride Lvl (test code = Chloride Lvl) 113 95-109 [place] 663522-07-15 10:48:00 Test Item Value Reference Range Interpretation Comments CO2 (test code = CO2) 27 24-32 [place] 663522-07-15 10:48:00 Test Item Value Reference Range Interpretation Comments Calcium Lvl (test code = Calcium Lvl) 9.0 8.5-10.5 [facility]2022-07-15 10:48:00 Test Item Value Reference Range Interpretation Comments AGAP (test code = AGAP) 9.0 10.0-20.0 [facility]2022-07-15 10:48:00 Test Item Value Reference Range Interpretation Comments eGFR (test code = eGFR) 107 [facility] CypressPqsgpoxWYCIZEDMNC7485-53-67 10:48:00 Test Item Value Reference Range Interpretation Comments WBC (test code = WBC) 8.5 3.7-10.4 [facility] CypressIlzqtvcQYVLSSYFJN0674-85-88 10:48:00 Test Item Value Reference Range Interpretation Comments RBC (test code = RBC) 3.55 4.20-5.40 [facility] CypressSouzuiyWLHUFVENII2113-83-84 10:48:00 Test Item Value Reference Range Interpretation Comments Hgb (test code = Hgb) 10.5 12.0-16.0 [facility] CypressMrcbemoQTBQBBGWHI5378-84-56 10:48:00 Test Item Value Reference Range Interpretation Comments Hct (test code = Hct) 31.2 36.0-48.0 [facility] CypressUwtclkmGWVDUUDFCD1783-10-33 10:48:00 Test Item Value Reference Range Interpretation Comments MCV (test code = MCV) 88.0 80.0-98.0 [facility] CypressHcfvfmyYFXVEFFZYU6562-90-95 10:48:00 Test Item Value Reference Range Interpretation Comments MCH (test code = MCH) 29.6 pg 27.0-31.0 [facility] CypressZmtyqeiHEJHWHKPMZ4495-20-91 10:48:00 Test Item Value Reference Range Interpretation Comments MCHC (test code = MCHC) 33.6 32.0-36.0 [facility] CypressXliotkhFTOWMRWURV0330-40-28 10:48:00 Test Item Value Reference Range Interpretation Comments RDW (test code = RDW) 14.3 11.5-14.5 [facility] CypressDyzitxzEMYLBXYLYP1450-07-44 10:48:00 Test Item Value Reference Range Interpretation Comments Platelet (test code = Platelet) 212 133-450 [facility] CypressIekcdwoNGGTHDAXXT5967-04-30 10:48:00 Test Item Value Reference Range Interpretation Comments MPV (test code = MPV) 8.3 7.4-10.4 [place] 663522-07-15 10:48:00 Test Item Value Reference Range Interpretation Comments Glucose Lvl (test code = Glucose Lvl) 108 70-99 [place] 663522-07-15 10:48:00 Test Item Value Reference Range Interpretation Comments BUN (test code = BUN) 17 7-22 [place] 663522-07-15 10:48:00 Test Item Value Reference Range Interpretation Comments Creatinine Lvl (test code = Creatinine 0.57 0.50-1.40 Lvl) [place] 663522-07-15 10:48:00 Test Item Value Reference Range Interpretation Comments Sodium Lvl (test code = Sodium Lvl) 145 135-145 [place] 663522-07-15 10:48:00 Test Item Value Reference Range Interpretation Comments Potassium Lvl (test code = Potassium 4.0 3.5-5.1 Lvl) [place] 663522-07-15 10:48:00 Test Item Value Reference Range Interpretation Comments Chloride Lvl (test code = Chloride Lvl) 113 95-109 [place] 663522-07-15 10:48:00 Test Item Value Reference Range Interpretation Comments CO2 (test code = CO2) 27 24-32 [place] 663522-07-15 10:48:00 Test Item Value Reference Range Interpretation Comments Calcium Lvl (test code = Calcium Lvl) 9.0 8.5-10.5 [place] 663522-07-15 10:48:00 Test Item Value Reference Range Interpretation Comments AGAP (test code = AGAP) 9.0 10.0-20.0 [place] 663522-07-15 10:48:00 Test Item Value Reference Range Interpretation Comments eGFR (test code = eGFR) 107 [place] 747592-07-15 10:48:00 Test Item Value Reference Range Interpretation Comments WBC (test code = WBC) 8.5 3.7-10.4 [place] 747592-07-15 10:48:00 Test Item Value Reference Range Interpretation Comments RBC (test code = RBC) 3.55 4.20-5.40 [place] 747592-07-15 10:48:00 Test Item Value Reference Range Interpretation Comments Hgb (test code = Hgb) 10.5 12.0-16.0 [place] [address]-07-15 10:48:00 Test Item Value Reference Range Interpretation Comments Hct (test code = Hct) 31.2 36.0-48.0 [facility] CypressXbkhvfxNNDKMNKIFF9329-80-52 10:48:00 Test Item Value Reference Range Interpretation Comments MCV (test code = MCV) 88.0 80.0-98.0 [place]7592-07-15 10:48:00 Test Item Value Reference Range Interpretation Comments MCH (test code = MCH) 29.6 pg 27.0-31.0 [place] 747592-07-15 10:48:00 Test Item Value Reference Range Interpretation Comments MCHC (test code = MCHC) 33.6 32.0-36.0 [facility] CypressWhrodgwORBRSRGGBG3667-44-28 10:48:00 Test Item Value Reference Range Interpretation Comments RDW (test code = RDW) 14.3 11.5-14.5 [place]7592-07-15 10:48:00 Test Item Value Reference Range Interpretation Comments Platelet (test code = Platelet) 212 133-450 [facility] CypressZygwswuHBRNZXYNLL8031-10-42 10:48:00 Test Item Value Reference Range Interpretation Comments MPV (test code = MPV) 8.3 7.4-10.4 [facility]2022-07-15 10:48:00 Test Item Value Reference Range Interpretation Comments Glucose Lvl (test code = Glucose Lvl) 108 70-99 [facility]2022-07-15 10:48:00 Test Item Value Reference Range Interpretation Comments BUN (test code = BUN) 17 7-22 [facility]2022-07-15 10:48:00 Test Item Value Reference Range Interpretation Comments Creatinine Lvl (test code = Creatinine 0.57 0.50-1.40 Lvl) [facility]2022-07-15 10:48:00 Test Item Value Reference Range Interpretation Comments Sodium Lvl (test code = Sodium Lvl) 145 135-145 [place] 663522-07-15 10:48:00 Test Item Value Reference Range Interpretation Comments Potassium Lvl (test code = Potassium 4.0 3.5-5.1 Lvl) [facility]2022-07-15 10:48:00 Test Item Value Reference Range Interpretation Comments Chloride Lvl (test code = Chloride Lvl) 113 95-109 [facility]2022-07-15 10:48:00 Test Item Value Reference Range Interpretation Comments CO2 (test code = CO2) 27 24-32 [place] 663522-07-15 10:48:00 Test Item Value Reference Range Interpretation Comments Calcium Lvl (test code = Calcium Lvl) 9.0 8.5-10.5 [facility]2022-07-15 10:48:00 Test Item Value Reference Range Interpretation Comments AGAP (test code = AGAP) 9.0 10.0-20.0 [facility]2022-07-15 10:48:00 Test Item Value Reference Range Interpretation Comments eGFR (test code = eGFR) 107 [facility] CypressMuaqrliVSGNAIGQZH4587-75-14 10:48:00 Test Item Value Reference Range Interpretation Comments WBC (test code = WBC) 8.5 3.7-10.4 [place] 747592-07-15 10:48:00 Test Item Value Reference Range Interpretation Comments RBC (test code = RBC) 3.55 4.20-5.40 [place] 747592-07-15 10:48:00 Test Item Value Reference Range Interpretation Comments Hgb (test code = Hgb) 10.5 12.0-16.0 [place] 747592-07-15 10:48:00 Test Item Value Reference Range Interpretation Comments Hct (test code = Hct) 31.2 36.0-48.0 [place] 747592-07-15 10:48:00 Test Item Value Reference Range Interpretation Comments MCV (test code = MCV) 88.0 80.0-98.0 [place] [address]-07-15 10:48:00 Test Item Value Reference Range Interpretation Comments MCH (test code = MCH) 29.6 pg 27.0-31.0 [place] 747592-07-15 10:48:00 Test Item Value Reference Range Interpretation Comments MCHC (test code = MCHC) 33.6 32.0-36.0 [place] 747592-07-15 10:48:00 Test Item Value Reference Range Interpretation Comments RDW (test code = RDW) 14.3 11.5-14.5 [place] [address]-07-15 10:48:00 Test Item Value Reference Range Interpretation Comments Platelet (test code = Platelet) 212 133-450 [place] 747592-07-15 10:48:00 Test Item Value Reference Range Interpretation Comments MPV (test code = MPV) 8.3 7.4-10.4 [place] 663522-07-15 10:48:00 Test Item Value Reference Range Interpretation Comments Glucose Lvl (test code = Glucose Lvl) 108 70-99 [place] 663522-07-15 10:48:00 Test Item Value Reference Range Interpretation Comments BUN (test code = BUN) 17 7-22 [place] 663522-07-15 10:48:00 Test Item Value Reference Range Interpretation Comments Creatinine Lvl (test code = Creatinine 0.57 0.50-1.40 Lvl) [facility]2022-07-15 10:48:00 Test Item Value Reference Range Interpretation Comments Sodium Lvl (test code = Sodium Lvl) 145 135-145 [place] 663522-07-15 10:48:00 Test Item Value Reference Range Interpretation Comments Potassium Lvl (test code = Potassium 4.0 3.5-5.1 Lvl) [facility]2022-07-15 10:48:00 Test Item Value Reference Range Interpretation Comments Chloride Lvl (test code = Chloride Lvl) 113 95-109 [place] 663522-07-15 10:48:00 Test Item Value Reference Range Interpretation Comments CO2 (test code = CO2) 27 24-32 [place] 663522-07-15 10:48:00 Test Item Value Reference Range Interpretation Comments Calcium Lvl (test code = Calcium Lvl) 9.0 8.5-10.5 [place] 663522-07-15 10:48:00 Test Item Value Reference Range Interpretation Comments AGAP (test code = AGAP) 9.0 10.0-20.0 [place] 663522-07-15 10:48:00 Test Item Value Reference Range Interpretation Comments eGFR (test code = eGFR) 107 [place] 747592-07-15 10:48:00 Test Item Value Reference Range Interpretation Comments WBC (test code = WBC) 8.5 3.7-10.4 [facility]ressQvzkjxbYCMBXBPQHZ5297-05-05 10:48:00 Test Item Value Reference Range Interpretation Comments RBC (test code = RBC) 3.55 4.20-5.40 [facility] CypressZdnpkhlIZTOIZUJXQ1803-87-75 10:48:00 Test Item Value Reference Range Interpretation Comments Hgb (test code = Hgb) 10.5 12.0-16.0 [facility] CypressEkkbvkuRBVOTUUHGO3276-00-36 10:48:00 Test Item Value Reference Range Interpretation Comments Hct (test code = Hct) 31.2 36.0-48.0 [facility]ressOxnvuewFTACDHRCPH2483-15-24 10:48:00 Test Item Value Reference Range Interpretation Comments MCV (test code = MCV) 88.0 80.0-98.0 [facility] CypressUjmeknoLQITKCSLPC1781-04-30 10:48:00 Test Item Value Reference Range Interpretation Comments MCH (test code = MCH) 29.6 pg 27.0-31.0 [facility] CypressCwantpmDRCOUSBZTJ4760-81-26 10:48:00 Test Item Value Reference Range Interpretation Comments MCHC (test code = MCHC) 33.6 32.0-36.0 [facility] CypressMadkwbpJZZVVANUKN9959-42-10 10:48:00 Test Item Value Reference Range Interpretation Comments RDW (test code = RDW) 14.3 11.5-14.5 [facility] CypressWzrmaidZVWFHSKDNI0034-47-77 10:48:00 Test Item Value Reference Range Interpretation Comments Platelet (test code = Platelet) 212 133-450 [facility] CypressTbjsjwdPPRXZRJEWE9731-54-09 10:48:00 Test Item Value Reference Range Interpretation Comments MPV (test code = MPV) 8.3 7.4-10.4 [facility]2022-07-15 10:48:00 Test Item Value Reference Range Interpretation Comments Glucose Lvl (test code = Glucose Lvl) 108 70-99 [facility]2022-07-15 10:48:00 Test Item Value Reference Range Interpretation Comments BUN (test code = BUN) 17 7-22 [facility]2022-07-15 10:48:00 Test Item Value Reference Range Interpretation Comments Creatinine Lvl (test code = Creatinine 0.57 0.50-1.40 Lvl) [facility]2022-07-15 10:48:00 Test Item Value Reference Range Interpretation Comments Sodium Lvl (test code = Sodium Lvl) 145 135-145 [place] 663522-07-15 10:48:00 Test Item Value Reference Range Interpretation Comments Potassium Lvl (test code = Potassium 4.0 3.5-5.1 Lvl) [place] 663522-07-15 10:48:00 Test Item Value Reference Range Interpretation Comments Chloride Lvl (test code = Chloride Lvl) 113 95-109 [place] 663522-07-15 10:48:00 Test Item Value Reference Range Interpretation Comments CO2 (test code = CO2) 27 24-32 [place] 663522-07-15 10:48:00 Test Item Value Reference Range Interpretation Comments Calcium Lvl (test code = Calcium Lvl) 9.0 8.5-10.5 [place] 663522-07-15 10:48:00 Test Item Value Reference Range Interpretation Comments AGAP (test code = AGAP) 9.0 10.0-20.0 [place] 663522-07-15 10:48:00 Test Item Value Reference Range Interpretation Comments eGFR (test code = eGFR) 107 [facility] CypressPynjivuGBVJDKIIMC6563-16-23 10:48:00 Test Item Value Reference Range Interpretation Comments WBC (test code = WBC) 8.5 3.7-10.4 [place]7592-07-15 10:48:00 Test Item Value Reference Range Interpretation Comments RBC (test code = RBC) 3.55 4.20-5.40 [place]7592-07-15 10:48:00 Test Item Value Reference Range Interpretation Comments Hgb (test code = Hgb) 10.5 12.0-16.0 [place] [address]-07-15 10:48:00 Test Item Value Reference Range Interpretation Comments Hct (test code = Hct) 31.2 36.0-48.0 [place] [address]-07-15 10:48:00 Test Item Value Reference Range Interpretation Comments MCV (test code = MCV) 88.0 80.0-98.0 [place]7592-07-15 10:48:00 Test Item Value Reference Range Interpretation Comments MCH (test code = MCH) 29.6 pg 27.0-31.0 [place] 747592-07-15 10:48:00 Test Item Value Reference Range Interpretation Comments MCHC (test code = MCHC) 33.6 32.0-36.0 [place] 747592-07-15 10:48:00 Test Item Value Reference Range Interpretation Comments RDW (test code = RDW) 14.3 11.5-14.5 [place]7592-07-15 10:48:00 Test Item Value Reference Range Interpretation Comments Platelet (test code = Platelet) 212 133-450 [facility]ressKpmlwbeWXUDCMMMZL8870-36-31 10:48:00 Test Item Value Reference Range Interpretation Comments MPV (test code = MPV) 8.3 7.4-10.4 [facility]2022-07-15 10:48:00 Test Item Value Reference Range Interpretation Comments Glucose Lvl (test code = Glucose Lvl) 108 70-99 [facility]2022-07-15 10:48:00 Test Item Value Reference Range Interpretation Comments BUN (test code = BUN) 17 7-22 [facility]2022-07-15 10:48:00 Test Item Value Reference Range Interpretation Comments Creatinine Lvl (test code = Creatinine 0.57 0.50-1.40 Lvl) [facility]2022-07-15 10:48:00 Test Item Value Reference Range Interpretation Comments Sodium Lvl (test code = Sodium Lvl) 145 135-145 [place] 663522-07-15 10:48:00 Test Item Value Reference Range Interpretation Comments Potassium Lvl (test code = Potassium 4.0 3.5-5.1 Lvl) [facility]2022-07-15 10:48:00 Test Item Value Reference Range Interpretation Comments Chloride Lvl (test code = Chloride Lvl) 113 95-109 [place] 663522-07-15 10:48:00 Test Item Value Reference Range Interpretation Comments CO2 (test code = CO2) 27 24-32 [facility]2022-07-15 10:48:00 Test Item Value Reference Range Interpretation Comments Calcium Lvl (test code = Calcium Lvl) 9.0 8.5-10.5 [facility]2022-07-15 10:48:00 Test Item Value Reference Range Interpretation Comments AGAP (test code = AGAP) 9.0 10.0-20.0 [facility]2022-07-15 10:48:00 Test Item Value Reference Range Interpretation Comments eGFR (test code = eGFR) 107 [facility]lgjatqXCXJIJWLZE4528-59-06 10:48:00 Test Item Value Reference Range Interpretation Comments WBC (test code = WBC) 8.5 3.7-10.4 [facility]ressHdasddpKBMEOHDDVU9550-71-66 10:48:00 Test Item Value Reference Range Interpretation Comments RBC (test code = RBC) 3.55 4.20-5.40 [facility] CypressYcpiaxvJSBJFNHRBF0353-96-21 10:48:00 Test Item Value Reference Range Interpretation Comments Hgb (test code = Hgb) 10.5 12.0-16.0 [facility] CypressScmvguzVMDXBFDEYY3940-30-17 10:48:00 Test Item Value Reference Range Interpretation Comments Hct (test code = Hct) 31.2 36.0-48.0 [facility] CypressHghftvqPHDIXMKHNY1465-03-12 10:48:00 Test Item Value Reference Range Interpretation Comments MCV (test code = MCV) 88.0 80.0-98.0 [facility] CypressGmigbheQHXZILUEPU3698-66-00 10:48:00 Test Item Value Reference Range Interpretation Comments MCH (test code = MCH) 29.6 pg 27.0-31.0 [facility] CypressPofrjcyVXVVVMWSJD4560-70-70 10:48:00 Test Item Value Reference Range Interpretation Comments MCHC (test code = MCHC) 33.6 32.0-36.0 [facility] CypressCsgtowoGZCTHUTSQS3328-09-84 10:48:00 Test Item Value Reference Range Interpretation Comments RDW (test code = RDW) 14.3 11.5-14.5 [facility] CypressDvdqzcfSXNHIYDQMP2432-84-33 10:48:00 Test Item Value Reference Range Interpretation Comments Platelet (test code = Platelet) 212 133-450 [facility] CypressWzhqntzZQHMAFEDUV1655-75-12 10:48:00 Test Item Value Reference Range Interpretation Comments MPV (test code = MPV) 8.3 7.4-10.4 [facility]2022-07-15 10:48:00 Test Item Value Reference Range Interpretation Comments Glucose Lvl (test code = Glucose Lvl) 108 70-99 [facility]2022-07-15 10:48:00 Test Item Value Reference Range Interpretation Comments BUN (test code = BUN) 17 7-22 [place] 663522-07-15 10:48:00 Test Item Value Reference Range Interpretation Comments Creatinine Lvl (test code = Creatinine 0.57 0.50-1.40 Lvl) [facility]2022-07-15 10:48:00 Test Item Value Reference Range Interpretation Comments Sodium Lvl (test code = Sodium Lvl) 145 135-145 [place] 663522-07-15 10:48:00 Test Item Value Reference Range Interpretation Comments Potassium Lvl (test code = Potassium 4.0 3.5-5.1 Lvl) [facility]2022-07-15 10:48:00 Test Item Value Reference Range Interpretation Comments Chloride Lvl (test code = Chloride Lvl) 113 95-109 [facility]2022-07-15 10:48:00 Test Item Value Reference Range Interpretation Comments CO2 (test code = CO2) 27 24-32 [facility]2022-07-15 10:48:00 Test Item Value Reference Range Interpretation Comments Calcium Lvl (test code = Calcium Lvl) 9.0 8.5-10.5 [facility]2022-07-15 10:48:00 Test Item Value Reference Range Interpretation Comments AGAP (test code = AGAP) 9.0 10.0-20.0 [facility]2022-07-15 10:48:00 Test Item Value Reference Range Interpretation Comments eGFR (test code = eGFR) 107 [facility] CypressAovnilbTYFNOAPROF6184-52-34 10:48:00 Test Item Value Reference Range Interpretation Comments WBC (test code = WBC) 8.5 3.7-10.4 [place] 747592-07-15 10:48:00 Test Item Value Reference Range Interpretation Comments RBC (test code = RBC) 3.55 4.20-5.40 [place] 747592-07-15 10:48:00 Test Item Value Reference Range Interpretation Comments Hgb (test code = Hgb) 10.5 12.0-16.0 [place] 747592-07-15 10:48:00 Test Item Value Reference Range Interpretation Comments Hct (test code = Hct) 31.2 36.0-48.0 [place] 747592-07-15 10:48:00 Test Item Value Reference Range Interpretation Comments MCV (test code = MCV) 88.0 80.0-98.0 [place] 747592-07-15 10:48:00 Test Item Value Reference Range Interpretation Comments MCH (test code = MCH) 29.6 pg 27.0-31.0 [place] 747592-07-15 10:48:00 Test Item Value Reference Range Interpretation Comments MCHC (test code = MCHC) 33.6 32.0-36.0 [place] 747592-07-15 10:48:00 Test Item Value Reference Range Interpretation Comments RDW (test code = RDW) 14.3 11.5-14.5 [place] 747592-07-15 10:48:00 Test Item Value Reference Range Interpretation Comments Platelet (test code = Platelet) 212 133-450 [facility] CypressVwfidnrYTGUBWVKZY9574-93-37 10:48:00 Test Item Value Reference Range Interpretation Comments MPV (test code = MPV) 8.3 7.4-10.4 [facility]2022-07-15 10:48:00 Test Item Value Reference Range Interpretation Comments Glucose Lvl (test code = Glucose Lvl) 108 70-99 [facility]2022-07-15 10:48:00 Test Item Value Reference Range Interpretation Comments BUN (test code = BUN) 17 7-22 [facility]2022-07-15 10:48:00 Test Item Value Reference Range Interpretation Comments Creatinine Lvl (test code = Creatinine 0.57 0.50-1.40 Lvl) [place] 663522-07-15 10:48:00 Test Item Value Reference Range Interpretation Comments Sodium Lvl (test code = Sodium Lvl) 145 135-145 [place] 663522-07-15 10:48:00 Test Item Value Reference Range Interpretation Comments Potassium Lvl (test code = Potassium 4.0 3.5-5.1 Lvl) [place] 663522-07-15 10:48:00 Test Item Value Reference Range Interpretation Comments Chloride Lvl (test code = Chloride Lvl) 113 95-109 [place] 663522-07-15 10:48:00 Test Item Value Reference Range Interpretation Comments CO2 (test code = CO2) 27 24-32 [facility]2022-07-15 10:48:00 Test Item Value Reference Range Interpretation Comments Calcium Lvl (test code = Calcium Lvl) 9.0 8.5-10.5 [facility]2022-07-15 10:48:00 Test Item Value Reference Range Interpretation Comments AGAP (test code = AGAP) 9.0 10.0-20.0 [facility]2022-07-15 10:48:00 Test Item Value Reference Range Interpretation Comments eGFR (test code = eGFR) 107 [facility] CypressOnvopzhDEONBPRBEK9314-04-23 10:48:00 Test Item Value Reference Range Interpretation Comments WBC (test code = WBC) 8.5 3.7-10.4 [facility] CypressKskiwcnVLTBBWXDQF7851-32-55 10:48:00 Test Item Value Reference Range Interpretation Comments RBC (test code = RBC) 3.55 4.20-5.40 [facility] CypressZnbhnayIXCKNPFIAU6704-96-75 10:48:00 Test Item Value Reference Range Interpretation Comments Hgb (test code = Hgb) 10.5 12.0-16.0 [facility] CypressScmdiofJPDSLCXQME0909-20-61 10:48:00 Test Item Value Reference Range Interpretation Comments Hct (test code = Hct) 31.2 36.0-48.0 [facility] CypressQevgihsTINVBETUDR8100-93-00 10:48:00 Test Item Value Reference Range Interpretation Comments MCV (test code = MCV) 88.0 80.0-98.0 [facility] CypressRpypujwBILFFHNPWG5385-70-55 10:48:00 Test Item Value Reference Range Interpretation Comments MCH (test code = MCH) 29.6 pg 27.0-31.0 [facility] CypressXfjmwuxJRZSPQKCOJ4610-25-11 10:48:00 Test Item Value Reference Range Interpretation Comments MCHC (test code = MCHC) 33.6 32.0-36.0 [place] 747592-07-15 10:48:00 Test Item Value Reference Range Interpretation Comments RDW (test code = RDW) 14.3 11.5-14.5 [facility] CypressVpcjqzjMSAFXKIVMT8325-31-95 10:48:00 Test Item Value Reference Range Interpretation Comments Platelet (test code = Platelet) 212 133-450 [facility] CypressJwftsoeZXYHNCEZXB8245-53-82 10:48:00 Test Item Value Reference Range Interpretation Comments MPV (test code = MPV) 8.3 7.4-10.4 [place] 663522-07-15 10:48:00 Test Item Value Reference Range Interpretation Comments Glucose Lvl (test code = Glucose Lvl) 108 70-99 [place] 663522-07-15 10:48:00 Test Item Value Reference Range Interpretation Comments BUN (test code = BUN) 17 7-22 [facility]2022-07-15 10:48:00 Test Item Value Reference Range Interpretation Comments Creatinine Lvl (test code = Creatinine 0.57 0.50-1.40 Lvl) [facility]2022-07-15 10:48:00 Test Item Value Reference Range Interpretation Comments Sodium Lvl (test code = Sodium Lvl) 145 135-145 [place] 663522-07-15 10:48:00 Test Item Value Reference Range Interpretation Comments Potassium Lvl (test code = Potassium 4.0 3.5-5.1 Lvl) [facility]2022-07-15 10:48:00 Test Item Value Reference Range Interpretation Comments Chloride Lvl (test code = Chloride Lvl) 113 95-109 [place] 663522-07-15 10:48:00 Test Item Value Reference Range Interpretation Comments CO2 (test code = CO2) 27 24-32 [facility]2022-07-15 10:48:00 Test Item Value Reference Range Interpretation Comments Calcium Lvl (test code = Calcium Lvl) 9.0 8.5-10.5 [facility]2022-07-15 10:48:00 Test Item Value Reference Range Interpretation Comments AGAP (test code = AGAP) 9.0 10.0-20.0 [place] 663522-07-15 10:48:00 Test Item Value Reference Range Interpretation Comments eGFR (test code = eGFR) 107 [facility] CypressPyxoxdhAIKMHBRRVB1578-04-84 10:48:00 Test Item Value Reference Range Interpretation Comments WBC (test code = WBC) 8.5 3.7-10.4 [place] 747592-07-15 10:48:00 Test Item Value Reference Range Interpretation Comments RBC (test code = RBC) 3.55 4.20-5.40 [place] [address]-07-15 10:48:00 Test Item Value Reference Range Interpretation Comments Hgb (test code = Hgb) 10.5 12.0-16.0 [facility] CypressNvhykjyTLZBJJZBCW2684-19-25 10:48:00 Test Item Value Reference Range Interpretation Comments Hct (test code = Hct) 31.2 36.0-48.0 [facility] CypressVssbazfNAMVDXOTNY3626-10-95 10:48:00 Test Item Value Reference Range Interpretation Comments MCV (test code = MCV) 88.0 80.0-98.0 [facility] CypressZyxagoiKRIRYWYUXA2803-93-32 10:48:00 Test Item Value Reference Range Interpretation Comments MCH (test code = MCH) 29.6 pg 27.0-31.0 [facility] CypressGxhshyhWLNYEHHOJJ7656-66-64 10:48:00 Test Item Value Reference Range Interpretation Comments MCHC (test code = MCHC) 33.6 32.0-36.0 [facility] CypressOiucorbGEKDUJGRFW9715-09-52 10:48:00 Test Item Value Reference Range Interpretation Comments RDW (test code = RDW) 14.3 11.5-14.5 [facility] CypressPhvpeszHESLUTTHRI2258-25-60 10:48:00 Test Item Value Reference Range Interpretation Comments Platelet (test code = Platelet) 212 133-450 [facility] CypressVirpymvYPTKHUBNGP7790-06-74 10:48:00 Test Item Value Reference Range Interpretation Comments MPV (test code = MPV) 8.3 7.4-10.4 [facility] [id number] 14:58:00 Test Item Value Reference Range Interpretation Comments RBC product (test code Product available = RBC product) (11/08/21 9:58 AM) [facility] [id number] 14:58:00 Test Item Value Reference Range Interpretation Comments RBC product (test code Product available = RBC product) (11/08/21 9:58 AM) [facility] [id number] 14:58:00 Test Item Value Reference Range Interpretation Comments RBC product (test code Product available = RBC product) (11/08/21 9:58 AM) [facility] [id number] 14:58:00 Test Item Value Reference Range Interpretation Comments RBC product (test code Product available = RBC product) (11/08/21 9:58 AM) [facility] [id number] 14:58:00 Test Item Value Reference Range Interpretation Comments RBC product (test code Product available = RBC product) (11/08/21 9:58 AM) [facility] [id number] 14:58:00 Test Item Value Reference Range Interpretation Comments RBC product (test code Product available = RBC product) (11/08/21 9:58 AM) [facility] [id number] 14:58:00 Test Item Value Reference Range Interpretation Comments RBC product (test code Product available = RBC product) (11/08/21 9:58 AM) [facility] [id number] 14:58:00 Test Item Value Reference Range Interpretation Comments RBC product (test code Product available = RBC product) (11/08/21 9:58 AM) [facility] [id number] 14:58:00 Test Item Value Reference Range Interpretation Comments RBC product (test code Product available = RBC product) (11/08/21 9:58 AM) [facility] [id number] 14:58:00 Test Item Value Reference Range Interpretation Comments RBC product (test code Product available = RBC product) (11/08/21 9:58 AM) [facility] [id number] 14:58:00 Test Item Value Reference Range Interpretation Comments RBC product (test code Product available = RBC product) (11/08/21 9:58 AM) [facility] [id number] 14:58:00 Test Item Value Reference Range Interpretation Comments RBC product (test code Product available = RBC product) (11/08/21 9:58 AM) [facility] [id number] 14:58:00 Test Item Value Reference Range Interpretation Comments RBC product (test code Product available = RBC product) (11/08/21 9:58 AM) [facility] [id number] 14:58:00 Test Item Value Reference Range Interpretation Comments RBC product (test code Product available = RBC product) (11/08/21 9:58 AM) [facility] [id number] 14:58:00 Test Item Value Reference Range Interpretation Comments RBC product (test code Product available = RBC product) (11/08/21 9:58 AM) [facility] [id number] 14:58:00 Test Item Value Reference Range Interpretation Comments RBC product (test code Product available = RBC product) (11/08/21 9:58 AM) [facility] [id number] 13:00:00 Test Item Value Reference Range Interpretation Comments ABO/Rh (test code = ABO/Rh) A POS [facility] [id number] 13:00:00 Test Item Value Reference Range Interpretation Comments Antibody Scrn (test Negative (11/08/21 8:00 code = Antibody Scrn) AM) [facility] CypressAcmxdqaQHZOBTUBUG6457-85-26 13:00:00 Test Item Value Reference Range Interpretation Comments WBC (test code = WBC) 5.7 3.7-10.4 [facility] CypressHrzymyiWHDILSAKYL5576-29-89 13:00:00 Test Item Value Reference Range Interpretation Comments RBC (test code = RBC) 4.88 4.20-5.40 [facility] CypressWbgzomoHQFZRJAGKQ9695-41-57 13:00:00 Test Item Value Reference Range Interpretation Comments Hgb (test code = Hgb) 14.4 12.0-16.0 [facility] CypressLdurtcpIYUNCINXUP1531-64-65 13:00:00 Test Item Value Reference Range Interpretation Comments Hct (test code = Hct) 42.9 36.0-48.0 [facility] CypressGqfaejyHOFLWWTMXT9326-32-01 13:00:00 Test Item Value Reference Range Interpretation Comments MCV (test code = MCV) 87.9 80.0-98.0 [facility] CypressUcvgmasAHPKKGTSOE5677-78-16 13:00:00 Test Item Value Reference Range Interpretation Comments MCH (test code = MCH) 29.5 pg 27.0-31.0 [facility] CypressHpyjdipAJHENYYXJK7592-78-98 13:00:00 Test Item Value Reference Range Interpretation Comments MCHC (test code = MCHC) 33.6 32.0-36.0 [facility] CypressAljrhtkMNVIZEAZED1686-82-45 13:00:00 Test Item Value Reference Range Interpretation Comments RDW (test code = RDW) 14.5 11.5-14.5 [facility] CypressQwuzisqPSFEGATNFV1993-40-80 13:00:00 Test Item Value Reference Range Interpretation Comments Platelet (test code = Platelet) 264 133-450 [facility] CypressGtmjzdwXJSCAVPDYJ9325-29-34 13:00:00 Test Item Value Reference Range Interpretation Comments MPV (test code = MPV) 8.3 7.4-10.4 [facility] CypressTrastvwDHKAQOKUQT5068-33-12 13:00:00 Test Item Value Reference Range Interpretation Comments Segs (test code = Segs) 54.7 45.0-75.0 [facility] CypressCbkbdmvAXCQWWVWFN5799-27-13 13:00:00 Test Item Value Reference Range Interpretation Comments Lymphocytes (test code = Lymphocytes) 34.4 20.0-40.0 [facility] CypressLjuislcWZKTCJASJB2715-57-20 13:00:00 Test Item Value Reference Range Interpretation Comments Monocytes (test code = Monocytes) 8.2 2.0-12.0 [facility] CypressQptomcjJMIQFEDIIT8963-16-94 13:00:00 Test Item Value Reference Range Interpretation Comments Eosinophils (test code = Eosinophils) 2.1 <=4.0 [facility] CypressIzhziucFHUNQORWZT3213-14-72 13:00:00 Test Item Value Reference Range Interpretation Comments Basophils (test code = Basophils) 0.6 <=1.0 [facility] CypressIjtyuhtLZYCMQTNMG3794-85-02 13:00:00 Test Item Value Reference Range Interpretation Comments Neutrophils # (test code = Neutrophils 3.1 1.5-8.1 #) [facility] CypressHxksyixJTCXRUSTID5047-04-88 13:00:00 Test Item Value Reference Range Interpretation Comments Lymphocytes # (test code = Lymphocytes 2.0 1.0-5.5 #) [facility] CypressPixqhmqLVBZHBUKPB4414-91-49 13:00:00 Test Item Value Reference Range Interpretation Comments Monocytes # (test code = Monocytes #) 0.5 <=0.8 [facility] CypressCldegqzLGJNNTVSRU9526-95-09 13:00:00 Test Item Value Reference Range Interpretation Comments Eosinophils # (test code = Eosinophils 0.1 <=0.5 #) [id number] 13:00:00 Test Item Value Reference Range Interpretation Comments ABO/Rh (test code = ABO/Rh) A POS [facility] [id number] 13:00:00 Test Item Value Reference Range Interpretation Comments Antibody Scrn (test Negative (11/08/21 8:00 code = Antibody Scrn) AM) [facility] CypressPmnfxbgAMTOUOOEAJ7681-46-00 13:00:00 Test Item Value Reference Range Interpretation Comments WBC (test code = WBC) 5.7 3.7-10.4 [facility] CypressRlqidvoDCVGUSNVND8950-10-17 13:00:00 Test Item Value Reference Range Interpretation Comments RBC (test code = RBC) 4.88 4.20-5.40 [facility] CypressWpzvwwjIKWAZOYCRE1319-33-23 13:00:00 Test Item Value Reference Range Interpretation Comments Hgb (test code = Hgb) 14.4 12.0-16.0 [facility] CypressVnalhseMCSFXKBHGF0867-69-44 13:00:00 Test Item Value Reference Range Interpretation Comments Hct (test code = Hct) 42.9 36.0-48.0 [facility] CypressThtslxlTMVSDUTECH6124-84-28 13:00:00 Test Item Value Reference Range Interpretation Comments MCV (test code = MCV) 87.9 80.0-98.0 [facility] CypressSezoolnSSBBXBUBMD3599-50-59 13:00:00 Test Item Value Reference Range Interpretation Comments MCH (test code = MCH) 29.5 pg 27.0-31.0 [facility] CypressLxkiqkwKNMMLZMXUP3272-67-00 13:00:00 Test Item Value Reference Range Interpretation Comments MCHC (test code = MCHC) 33.6 32.0-36.0 [facility] CypressQigyyznUKFSDYSBZI9947-03-16 13:00:00 Test Item Value Reference Range Interpretation Comments RDW (test code = RDW) 14.5 11.5-14.5 [facility] CypressBybsppzUEPOEASFGF4154-54-88 13:00:00 Test Item Value Reference Range Interpretation Comments Platelet (test code = Platelet) 264 133-450 [facility] CypressDzrwybsBGFRVGVDTV6966-70-54 13:00:00 Test Item Value Reference Range Interpretation Comments MPV (test code = MPV) 8.3 7.4-10.4 [facility] CypressZayyettMSYJIOECOH4762-22-59 13:00:00 Test Item Value Reference Range Interpretation Comments Segs (test code = Segs) 54.7 45.0-75.0 [facility] CypressKdtwmipXXJCUAIARU0323-60-46 13:00:00 Test Item Value Reference Range Interpretation Comments Lymphocytes (test code = Lymphocytes) 34.4 20.0-40.0 [facility] CypressTadmnkkSXDRCIVSZU2295-61-93 13:00:00 Test Item Value Reference Range Interpretation Comments Monocytes (test code = Monocytes) 8.2 2.0-12.0 [facility] CypressWpuipasTTGBDAIUUY6300-49-16 13:00:00 Test Item Value Reference Range Interpretation Comments Eosinophils (test code = 2.1 See_Comment [A utomated message] The Eosinophils) system which ge nerated this result tra nsmitted reference range : <=4.0. The reference r abdifatah was not used to int erpret this result as normal/abnormal . [facility] CypressYnoyuleTZEBLTGMTD6182-37-31 13:00:00 Test Item Value Reference Range Interpretation Comments Basophils (test code = 0.6 See_Comment [Aut omated message] The Basophils) system which ge nerated this result tra nsmitted reference range : <=1.0. The reference r abdifatah was not used to int erpret this result as normal/abnormal . [facility] CypressBhsxykpIQZBSCRLST5763-38-59 13:00:00 Test Item Value Reference Range Interpretation Comments Neutrophils # (test code = Neutrophils 3.1 1.5-8.1 #) [facility] CypressKfbcacnGIKDQPXYCS2766-18-78 13:00:00 Test Item Value Reference Range Interpretation Comments Lymphocytes # (test code = Lymphocytes 2.0 1.0-5.5 #) [facility] CypressBxuqpvwHGJNLRPOCW4708-90-13 13:00:00 Test Item Value Reference Range Interpretation Comments Monocytes # (test code 0.5 See_Comment [Aut omated message] The = Monocytes #) system which generated this result tra nsmitted reference range : <=0.8. The reference r abdifatah was not used to int erpret this result as normal/abnormal . [facility] CypressLrcfmasLULVZITOHK6128-49-19 13:00:00 Test Item Value Reference Range Interpretation Comments Eosinophils # (test code 0.1 See_Comment [A utomated message] The = Eosinophils #) system whic h generated this result tra nsmitted reference range : <=0.5. The reference r abdifatah was not used to int erpret this result as normal/abnormal . [facility] [id number] 13:00:00 Test Item Value Reference Range Interpretation Comments ABO/Rh (test code = ABO/Rh) A POS [facility] [employer] [id number] 13:00:00 Test Item Value Reference Range Interpretation Comments Antibody Scrn (test Negative (11/08/21 8:00 code = Antibody Scrn) AM) [facility] CypressLccapngMGNEORGFAA1012-06-65 13:00:00 Test Item Value Reference Range Interpretation Comments WBC (test code = WBC) 5.7 3.7-10.4 [facility] CypressHlococaRGDNPMEPFI0481-25-91 13:00:00 Test Item Value Reference Range Interpretation Comments RBC (test code = RBC) 4.88 4.20-5.40 [facility] CypressGrovmgeUETWUMYOJQ4709-44-80 13:00:00 Test Item Value Reference Range Interpretation Comments Hgb (test code = Hgb) 14.4 12.0-16.0 [place] [id number] 13:00:00 Test Item Value Reference Range Interpretation Comments Hct (test code = Hct) 42.9 36.0-48.0 [facility] CypressHxdcxwiQFDMZEPUCJ0321-79-42 13:00:00 Test Item Value Reference Range Interpretation Comments MCV (test code = MCV) 87.9 80.0-98.0 [facility] CypressCiycmocRBPHGSLRZK8339-66-15 13:00:00 Test Item Value Reference Range Interpretation Comments MCH (test code = MCH) 29.5 pg 27.0-31.0 [facility] CypressUdylhsqTIVRUUHNEK7128-37-09 13:00:00 Test Item Value Reference Range Interpretation Comments MCHC (test code = MCHC) 33.6 32.0-36.0 [facility] CypressPootulkEXWDHYVBRY8866-85-02 13:00:00 Test Item Value Reference Range Interpretation Comments RDW (test code = RDW) 14.5 11.5-14.5 [facility] CypressDtpgxzqTPVPTAGWEJ1106-04-68 13:00:00 Test Item Value Reference Range Interpretation Comments Platelet (test code = Platelet) 264 133-450 [facility] CypressCborideTAOCHNQMPL5178-32-84 13:00:00 Test Item Value Reference Range Interpretation Comments MPV (test code = MPV) 8.3 7.4-10.4 [facility] CypressIyzmdbvJTTIRQAGLV0786-85-61 13:00:00 Test Item Value Reference Range Interpretation Comments Segs (test code = Segs) 54.7 45.0-75.0 [facility] CypressVwnjihcJQCRKBWTAJ4686-57-70 13:00:00 Test Item Value Reference Range Interpretation Comments Lymphocytes (test code = Lymphocytes) 34.4 20.0-40.0 [facility] CypressTyfbaloQFLDNYDXUC4548-87-60 13:00:00 Test Item Value Reference Range Interpretation Comments Monocytes (test code = Monocytes) 8.2 2.0-12.0 [facility] CypressUfpsomjKHNBKLUKXT4364-45-92 13:00:00 Test Item Value Reference Range Interpretation Comments Eosinophils (test code = 2.1 See_Comment [A utomated message] The Eosinophils) system which ge nerated this result tra nsmitted reference range : <=4.0. The reference r abdifatah was not used to int erpret this result as normal/abnormal . [facility] CypressMlerfuhWZNQPIIBRV4484-77-78 13:00:00 Test Item Value Reference Range Interpretation Comments Basophils (test code = 0.6 See_Comment [Aut omated message] The Basophils) system which ge nerated this result tra nsmitted reference range : <=1.0. The reference r abdifatah was not used to int erpret this result as normal/abnormal . [facility] CypressSrrdpdtESPSULRNJL1728-02-46 13:00:00 Test Item Value Reference Range Interpretation Comments Neutrophils # (test code = Neutrophils 3.1 1.5-8.1 #) [facility] CypressUcwrmdvGKXHJFHZEM2412-31-35 13:00:00 Test Item Value Reference Range Interpretation Comments Lymphocytes # (test code = Lymphocytes 2.0 1.0-5.5 #) [facility] CypressErazansYLELOZHVLH6574-51-31 13:00:00 Test Item Value Reference Range Interpretation Comments Monocytes # (test code 0.5 See_Comment [Aut omated message] The = Monocytes #) system which generated this result tra nsmitted reference range : <=0.8. The reference r abdifatah was not used to int erpret this result as normal/abnormal . [facility] CypressBsqzustOMVSYYRUCN6423-51-59 13:00:00 Test Item Value Reference Range Interpretation Comments Eosinophils # (test code 0.1 See_Comment [A utomated message] The = Eosinophils #) system whic h generated this result tra nsmitted reference range : <=0.5. The reference r abdifatah was not used to int erpret this result as normal/abnormal . [facility] MVFFIEE6899-70-78 13:00:00 Test Item Value Reference Range Interpretation Comments ABO/Rh (test code = ABO/Rh) A POS [facility]BL[facility] [id number] 13:00:00 Test Item Value Reference Range Interpretation Comments Antibody Scrn (test Negative (11/08/21 8:00 code = Antibody Scrn) AM) [facility] CypressOysvvamKEXUZPOFPX7840-25-74 13:00:00 Test Item Value Reference Range Interpretation Comments WBC (test code = WBC) 5.7 3.7-10.4 [facility] CypressXpwgaxnGPCOQVDTFF8416-25-42 13:00:00 Test Item Value Reference Range Interpretation Comments RBC (test code = RBC) 4.88 4.20-5.40 [facility] CypressKlexbmhOARITKCGEW5546-01-26 13:00:00 Test Item Value Reference Range Interpretation Comments Hgb (test code = Hgb) 14.4 12.0-16.0 [facility] CypressOkivfcnQWLNWGTUVD2052-08-48 13:00:00 Test Item Value Reference Range Interpretation Comments Hct (test code = Hct) 42.9 36.0-48.0 [facility] CypressPtpnprbABZRKYBYEU8671-27-26 13:00:00 Test Item Value Reference Range Interpretation Comments MCV (test code = MCV) 87.9 80.0-98.0 [facility] CypressLhscfrxQWMQTIBITW1131-57-11 13:00:00 Test Item Value Reference Range Interpretation Comments MCH (test code = MCH) 29.5 pg 27.0-31.0 [facility] CypressOdkvtotXLXTMXXSSJ3729-71-28 13:00:00 Test Item Value Reference Range Interpretation Comments MCHC (test code = MCHC) 33.6 32.0-36.0 [facility] CypressQyfehsvCFRVJMYNDN7842-75-41 13:00:00 Test Item Value Reference Range Interpretation Comments RDW (test code = RDW) 14.5 11.5-14.5 [facility] CypressWwfogvyVZSAIRXVRZ9311-73-17 13:00:00 Test Item Value Reference Range Interpretation Comments Platelet (test code = Platelet) 264 133-450 [facility] CypressFwuyseaAHIOEVZOGM5605-19-52 13:00:00 Test Item Value Reference Range Interpretation Comments MPV (test code = MPV) 8.3 7.4-10.4 [facility] CypressYvcemdnFGFENEERUV2036-08-86 13:00:00 Test Item Value Reference Range Interpretation Comments Segs (test code = Segs) 54.7 45.0-75.0 [facility] CypressVzvvldbGPZYHONNPA1484-82-16 13:00:00 Test Item Value Reference Range Interpretation Comments Lymphocytes (test code = Lymphocytes) 34.4 20.0-40.0 [facility] CypressZjfzviuZNLYIAAFMR1679-22-56 13:00:00 Test Item Value Reference Range Interpretation Comments Monocytes (test code = Monocytes) 8.2 2.0-12.0 [facility] CypressQptlodzJUUOWRQRFK9610-19-37 13:00:00 Test Item Value Reference Range Interpretation Comments Eosinophils (test code = 2.1 See_Comment [A utomated message] The Eosinophils) system which ge nerated this result tra nsmitted reference range : <=4.0. The reference r abdifatah was not used to int erpret this result as normal/abnormal . [facility] CypressLfyvpxhTKRVZUELSW1103-33-66 13:00:00 Test Item Value Reference Range Interpretation Comments Basophils (test code = 0.6 See_Comment [Aut omated message] The Basophils) system which ge nerated this result tra nsmitted reference range : <=1.0. The reference r abdifatah was not used to int erpret this result as normal/abnormal . [facility] CypressAqetnmrIOKOAVHEUH3084-25-23 13:00:00 Test Item Value Reference Range Interpretation Comments Neutrophils # (test code = Neutrophils 3.1 1.5-8.1 #) [facility] CypressQzsvuorZKFOGKFMXT3175-96-71 13:00:00 Test Item Value Reference Range Interpretation Comments Lymphocytes # (test code = Lymphocytes 2.0 1.0-5.5 #) [facility] CypressStrqclyXAOWTJWRWY3562-97-02 13:00:00 Test Item Value Reference Range Interpretation Comments Monocytes # (test code 0.5 See_Comment [Aut omated message] The = Monocytes #) system which generated this result tra nsmitted reference range : <=0.8. The reference r abdifatah was not used to int erpret this result as normal/abnormal . [facility] CypressVfjiopaLTUEXSGFPE2097-89-23 13:00:00 Test Item Value Reference Range Interpretation Comments Eosinophils # (test code 0.1 See_Comment [A utomated message] The = Eosinophils #) system whic h generated this result tra nsmitted reference range : <=0.5. The reference r abdifatah was not used to int erpret this result as normal/abnormal . [facility] [id number] 13:00:00 Test Item Value Reference Range Interpretation Comments ABO/Rh (test code = ABO/Rh) A POS [facility]ressSec[facility] [id number] 13:00:00 Test Item Value Reference Range Interpretation Comments Antibody Scrn (test Negative (11/08/21 8:00 code = Antibody Scrn) AM) [facility] CypressXcbhebeXBZYJABRCK4244-70-53 13:00:00 Test Item Value Reference Range Interpretation Comments WBC (test code = WBC) 5.7 3.7-10.4 [facility] CypressJufeopoNDVQMFBOYP8577-99-55 13:00:00 Test Item Value Reference Range Interpretation Comments RBC (test code = RBC) 4.88 4.20-5.40 [facility] CypressUhdlrfiUDMUSWOBRW6426-63-96 13:00:00 Test Item Value Reference Range Interpretation Comments Hgb (test code = Hgb) 14.4 12.0-16.0 [facility] CypressReqqsgfRSJKCNSYOC2533-17-64 13:00:00 Test Item Value Reference Range Interpretation Comments Hct (test code = Hct) 42.9 36.0-48.0 [facility] CypressFvfhmaqNIAZNUKACZ8168-35-35 13:00:00 Test Item Value Reference Range Interpretation Comments MCV (test code = MCV) 87.9 80.0-98.0 [facility] CypressAnutcgoPDLPUFDDWR3156-73-40 13:00:00 Test Item Value Reference Range Interpretation Comments MCH (test code = MCH) 29.5 pg 27.0-31.0 [facility] CypressJvtereqLSLJGIQBKH3361-53-38 13:00:00 Test Item Value Reference Range Interpretation Comments MCHC (test code = MCHC) 33.6 32.0-36.0 [facility] CypressDxzqgvaSTHWHHHHEQ5416-16-03 13:00:00 Test Item Value Reference Range Interpretation Comments RDW (test code = RDW) 14.5 11.5-14.5 [facility] CypressDvbckorDOTMMCIBQX4829-49-01 13:00:00 Test Item Value Reference Range Interpretation Comments Platelet (test code = Platelet) 264 133-450 [facility] CypressXnvyituZWDJYIWJPD4058-29-55 13:00:00 Test Item Value Reference Range Interpretation Comments MPV (test code = MPV) 8.3 7.4-10.4 [facility] CypressFmpjhnbVEWSQAAFYK4833-48-30 13:00:00 Test Item Value Reference Range Interpretation Comments Segs (test code = Segs) 54.7 45.0-75.0 [place] 747592-07-14 13:00:00 Test Item Value Reference Range Interpretation Comments Lymphocytes (test code = Lymphocytes) 34.4 20.0-40.0 [place] 747592-07-14 13:00:00 Test Item Value Reference Range Interpretation Comments Monocytes (test code = Monocytes) 8.2 2.0-12.0 [place] 747592-07-14 13:00:00 Test Item Value Reference Range Interpretation Comments Eosinophils (test code = 2.1 See_Comment [A utomated message] The Eosinophils) system which ge nerated this result tra nsmitted reference range : <=4.0. The reference r abdifatah was not used to int erpret this result as normal/abnormal . [place] 747592-07-14 13:00:00 Test Item Value Reference Range Interpretation Comments Basophils (test code = 0.6 See_Comment [Aut omated message] The Basophils) system which ge nerated this result tra nsmitted reference range : <=1.0. The reference r abdifatah was not used to int erpret this result as normal/abnormal . [facility] CypressQsgisqsZSUUKEDKUW3268-05-43 13:00:00 Test Item Value Reference Range Interpretation Comments Neutrophils # (test code = Neutrophils 3.1 1.5-8.1 #) [place] 747592-07-14 13:00:00 Test Item Value Reference Range Interpretation Comments Lymphocytes # (test code = Lymphocytes 2.0 1.0-5.5 #) [place] 747592-07-14 13:00:00 Test Item Value Reference Range Interpretation Comments Monocytes # (test code 0.5 See_Comment [Aut omated message] The = Monocytes #) system which generated this result tra nsmitted reference range : <=0.8. The reference r abdifatah was not used to int erpret this result as normal/abnormal . [place] 747592-07-14 13:00:00 Test Item Value Reference Range Interpretation Comments Eosinophils # (test code 0.1 See_Comment [A utomated message] The = Eosinophils #) system whic h generated this result tra nsmitted reference range : <=0.5. The reference r abdifatah was not used to int erpret this result as normal/abnormal . [facility] CKIMRNH7353-90-95 13:00:00 Test Item Value Reference Range Interpretation Comments ABO/Rh (test code = ABO/Rh) A POS [facility] JQYVYRV6597-55-11 13:00:00 Test Item Value Reference Range Interpretation Comments Antibody Scrn (test Negative (11/08/21 8:00 code = Antibody Scrn) AM) [facility] CypressFmkjyauYZGDBPZQKP5882-05-75 13:00:00 Test Item Value Reference Range Interpretation Comments WBC (test code = WBC) 5.7 3.7-10.4 [facility] CypressIjdcvzeTVHBBSELAI0600-45-76 13:00:00 Test Item Value Reference Range Interpretation Comments RBC (test code = RBC) 4.88 4.20-5.40 [facility] CypressJeqykjoSPKHQHGOSF4031-90-85 13:00:00 Test Item Value Reference Range Interpretation Comments Hgb (test code = Hgb) 14.4 12.0-16.0 [facility] CypressCejqvhlYGCITLWPHT1949-34-09 13:00:00 Test Item Value Reference Range Interpretation Comments Hct (test code = Hct) 42.9 36.0-48.0 [facility] CypressTfscwjjSFIVKGVKAP3925-39-40 13:00:00 Test Item Value Reference Range Interpretation Comments MCV (test code = MCV) 87.9 80.0-98.0 [facility] CypressZppdynqRLRJMEWMLB4267-77-37 13:00:00 Test Item Value Reference Range Interpretation Comments MCH (test code = MCH) 29.5 pg 27.0-31.0 [facility] CypressSoffvfmYCZPAJVAUF8796-37-95 13:00:00 Test Item Value Reference Range Interpretation Comments MCHC (test code = MCHC) 33.6 32.0-36.0 [facility] CypressVcbvaksJQYIPEYRWC0031-54-88 13:00:00 Test Item Value Reference Range Interpretation Comments RDW (test code = RDW) 14.5 11.5-14.5 [facility] CypressFwmbnygKYUPJKDADC7070-67-78 13:00:00 Test Item Value Reference Range Interpretation Comments Platelet (test code = Platelet) 264 133-450 [facility] CypressUkekjnmJIHPPYJLFV7081-07-44 13:00:00 Test Item Value Reference Range Interpretation Comments MPV (test code = MPV) 8.3 7.4-10.4 [place] 747592-07-14 13:00:00 Test Item Value Reference Range Interpretation Comments Segs (test code = Segs) 54.7 45.0-75.0 [facility] CypressZqlgqzoREHPCMOQCI9054-62-93 13:00:00 Test Item Value Reference Range Interpretation Comments Lymphocytes (test code = Lymphocytes) 34.4 20.0-40.0 [place] 747592-07-14 13:00:00 Test Item Value Reference Range Interpretation Comments Monocytes (test code = Monocytes) 8.2 2.0-12.0 [place] 747592-07-14 13:00:00 Test Item Value Reference Range Interpretation Comments Eosinophils (test code = 2.1 See_Comment [A utomated message] The Eosinophils) system which ge nerated this result tra nsmitted reference range : <=4.0. The reference r abdifatah was not used to int erpret this result as normal/abnormal . [place] 747592-07-14 13:00:00 Test Item Value Reference Range Interpretation Comments Basophils (test code = 0.6 See_Comment [Aut omated message] The Basophils) system which ge nerated this result tra nsmitted reference range : <=1.0. The reference r abdifatah was not used to int erpret this result as normal/abnormal . [facility] CypressIavnixsBUUGORJKOL9199-34-69 13:00:00 Test Item Value Reference Range Interpretation Comments Neutrophils # (test code = Neutrophils 3.1 1.5-8.1 #) [place] 747592-07-14 13:00:00 Test Item Value Reference Range Interpretation Comments Lymphocytes # (test code = Lymphocytes 2.0 1.0-5.5 #) [place] 747592-07-14 13:00:00 Test Item Value Reference Range Interpretation Comments Monocytes # (test code 0.5 See_Comment [Aut omated message] The = Monocytes #) system which generated this result tra nsmitted reference range : <=0.8. The reference r abdifatah was not used to int erpret this result as normal/abnormal . [facility] CypressTyozvzjQCLQLQAOND5675-35-59 13:00:00 Test Item Value Reference Range Interpretation Comments Eosinophils # (test code 0.1 See_Comment [A utomated message] The = Eosinophils #) system whic h generated this result tra nsmitted reference range : <=0.5. The reference r abdifatah was not used to int erpret this result as normal/abnormal . [facility] [employer] LMYMLWX0777-19-02 13:00:00 Test Item Value Reference Range Interpretation Comments ABO/Rh (test code = ABO/Rh) [facility]SWTJVR7978[facility] 13:00:00 Test Item Value Reference Range Interpretation Comments Antibody Scrn (test Negative (11/08/21 8:00 code = Antibody Scrn) AM) [facility] CypressSmpvxwfVFOPJQAEPK8833-20-09 13:00:00 Test Item Value Reference Range Interpretation Comments WBC (test code = WBC) 5.7 3.7-10.4 [facility] CypressJpdrcpbKNOLFAECLV0007-18-94 13:00:00 Test Item Value Reference Range Interpretation Comments RBC (test code = RBC) 4.88 4.20-5.40 [facility] CypressUoxeppaFQRQZEDHQA6553-51-85 13:00:00 Test Item Value Reference Range Interpretation Comments Hgb (test code = Hgb) 14.4 12.0-16.0 [facility] CypressVsnzdowDUYKAKHNCK6094-25-73 13:00:00 Test Item Value Reference Range Interpretation Comments Hct (test code = Hct) 42.9 36.0-48.0 [facility] CypressUtfuzfcOVAXSZLBNM4241-34-30 13:00:00 Test Item Value Reference Range Interpretation Comments MCV (test code = MCV) 87.9 80.0-98.0 [facility] CypressJebogfoJTRGDVOFRB8552-34-11 13:00:00 Test Item Value Reference Range Interpretation Comments MCH (test code = MCH) 29.5 pg 27.0-31.0 [facility] CypressIxdvxekQDITJTEBYR0247-39-20 13:00:00 Test Item Value Reference Range Interpretation Comments MCHC (test code = MCHC) 33.6 32.0-36.0 [facility] CypressGferpyfVCJOBTQHZU9858-71-95 13:00:00 Test Item Value Reference Range Interpretation Comments RDW (test code = RDW) 14.5 11.5-14.5 [facility] CypressIpqkihiQONGHAFJCL6456-88-00 13:00:00 Test Item Value Reference Range Interpretation Comments Platelet (test code = Platelet) 264 133-450 [facility] CypressTddfmhkUUCVBLHLJY7881-22-76 13:00:00 Test Item Value Reference Range Interpretation Comments MPV (test code = MPV) 8.3 7.4-10.4 [facility] CypressUrseevaIWVBTWFSZJ3398-77-94 13:00:00 Test Item Value Reference Range Interpretation Comments Segs (test code = Segs) 54.7 45.0-75.0 [facility] CypressLmfwmhaFNCSVNSWXU1478-42-00 13:00:00 Test Item Value Reference Range Interpretation Comments Lymphocytes (test code = Lymphocytes) 34.4 20.0-40.0 [facility] CypressKjewuwmGDKHAFMTLX1529-78-00 13:00:00 Test Item Value Reference Range Interpretation Comments Monocytes (test code = Monocytes) 8.2 2.0-12.0 [facility] CypressLtixsyqLZGUAPLSIO4209-01-38 13:00:00 Test Item Value Reference Range Interpretation Comments Eosinophils (test code = 2.1 See_Comment [A utomated message] The Eosinophils) system which ge nerated this result tra nsmitted reference range : <=4.0. The reference r abdifatah was not used to int erpret this result as normal/abnormal . [facility] CypressTvyxxoyWJUHRQFUOY5882-57-54 13:00:00 Test Item Value Reference Range Interpretation Comments Basophils (test code = 0.6 See_Comment [Aut omated message] The Basophils) system which ge nerated this result tra nsmitted reference range : <=1.0. The reference r abdifatah was not used to int erpret this result as normal/abnormal . [facility] CypressBuflvziDESYLMVYNN9117-66-31 13:00:00 Test Item Value Reference Range Interpretation Comments Neutrophils # (test code = Neutrophils 3.1 1.5-8.1 #) [facility] CypressZhicyciCVBZNOAKIA6106-06-28 13:00:00 Test Item Value Reference Range Interpretation Comments Lymphocytes # (test code = Lymphocytes 2.0 1.0-5.5 #) [facility] CypressFkxtknjEXWAIVNPQB4164-33-00 13:00:00 Test Item Value Reference Range Interpretation Comments Monocytes # (test code 0.5 See_Comment [Aut omated message] The = Monocytes #) system which generated this result tra nsmitted reference range : <=0.8. The reference r abdifatah was not used to int erpret this result as normal/abnormal . [facility] CypressFfycjjxPPJCGYZJBE8596-42-75 13:00:00 Test Item Value Reference Range Interpretation Comments Eosinophils # (test code 0.1 See_Comment [A utomated message] The = Eosinophils #) system whic h generated this result tra nsmitted reference range : <=0.5. The reference r abdifatah was not used to int erpret this result as normal/abnormal . [facility] [employer] CTAISGE7078-26-45 13:00:00 Test Item Value Reference Range Interpretation Comments ABO/Rh (test code = ABO/Rh) A POS [facility] [employer] VXQEJHT9603-24-24 13:00:00 Test Item Value Reference Range Interpretation Comments Antibody Scrn (test Negative (11/08/21 8:00 code = Antibody Scrn) AM) [facility]UWCABJJSUT9114-[facility]-07 13:00:00 Test Item Value Reference Range Interpretation Comments WBC (test code = WBC) 5.7 3.7-10.4 [facility] CypressAjttieuRFGGKPGNPJ0758-02-60 13:00:00 Test Item Value Reference Range Interpretation Comments RBC (test code = RBC) 4.88 4.20-5.40 [facility] HospitalJkzorqnAJBCLRRMNW0485-86-40 13:00:00 Test Item Value Reference Range Interpretation Comments Hgb (test code = Hgb) 14.4 12.0-16.0 [facility] HospitalNmgswopPWYQLMKTLR1108-10-02 13:00:00 Test Item Value Reference Range Interpretation Comments Hct (test code = Hct) 42.9 36.0-48.0 [facility] CypressCatcynnYTIQBGUILL9535-14-53 13:00:00 Test Item Value Reference Range Interpretation Comments MCV (test code = MCV) 87.9 80.0-98.0 [facility] HospitalGsitnrqYLBMTFGFZM5088-82-97 13:00:00 Test Item Value Reference Range Interpretation Comments MCH (test code = MCH) 29.5 pg 27.0-31.0 [facility] HospitalQuwkjxgNNDXKIFBQR4556-20-49 13:00:00 Test Item Value Reference Range Interpretation Comments MCHC (test code = MCHC) 33.6 32.0-36.0 [facility] CypressUvzejpyUNEWSVUNEH7603-39-52 13:00:00 Test Item Value Reference Range Interpretation Comments RDW (test code = RDW) 14.5 11.5-14.5 [facility] CypressCsrybzmKYPJTHRJUE1442-78-38 13:00:00 Test Item Value Reference Range Interpretation Comments Platelet (test code = Platelet) 264 133-450 [facility] CypressWxylcgeMGWNRMHQGB8355-15-98 13:00:00 Test Item Value Reference Range Interpretation Comments MPV (test code = MPV) 8.3 7.4-10.4 [facility] CypressCkmhrzkAODUMCTVZD2699-41-33 13:00:00 Test Item Value Reference Range Interpretation Comments Segs (test code = Segs) 54.7 45.0-75.0 [facility] CypressRuvmybaZFICBJVOJO2848-61-95 13:00:00 Test Item Value Reference Range Interpretation Comments Lymphocytes (test code = Lymphocytes) 34.4 20.0-40.0 [facility] CypressSpghqqpTWNCAIMZKY8335-21-21 13:00:00 Test Item Value Reference Range Interpretation Comments Monocytes (test code = Monocytes) 8.2 2.0-12.0 [facility] CypressUfohdgvNNNGZDJBVI2633-16-18 13:00:00 Test Item Value Reference Range Interpretation Comments Eosinophils (test code = 2.1 See_Comment [A utomated message] The Eosinophils) system which ge nerated this result tra nsmitted reference range : <=4.0. The reference r abdifatah was not used to int erpret this result as normal/abnormal . [facility] CypressGbfkjxkCEQOVVLBVS3345-72-74 13:00:00 Test Item Value Reference Range Interpretation Comments Basophils (test code = 0.6 See_Comment [Aut omated message] The Basophils) system which ge nerated this result tra nsmitted reference range : <=1.0. The reference r abdifatah was not used to int erpret this result as normal/abnormal . [facility] CypressYfzrdtrLJFCMQBAED1196-86-03 13:00:00 Test Item Value Reference Range Interpretation Comments Neutrophils # (test code = Neutrophils 3.1 1.5-8.1 #) [facility]ressVlrrgtaDOTBMHYVKI9192-16-72 13:00:00 Test Item Value Reference Range Interpretation Comments Lymphocytes # (test code = Lymphocytes 2.0 1.0-5.5 #) [facility] CypressFmabslrXRBMPNKQAM6538-20-51 13:00:00 Test Item Value Reference Range Interpretation Comments Monocytes # (test code 0.5 See_Comment [Aut omated message] The = Monocytes #) system which generated this result tra nsmitted reference range : <=0.8. The reference r adbifatah was not used to int erpret this result as normal/abnormal . [facility]LFLI5454[facility]61-10 13:00:00 Test Item Value Reference Range Interpretation Comments Eosinophils # (test code 0.1 See_Comment [A utomated message] The = Eosinophils #) system whic h generated this result tra nsmitted reference range : <=0.5. The reference r abdifatah was not used to int erpret this result as normal/abnormal . [facility] [employer] QHUYMVQ4036-75-50 13:00:00 Test Item Value Reference Range Interpretation Comments ABO/Rh (test code = ABO/Rh) A POS [facility] [employer] HNPSKHS9004-74-37 13:00:00 Test Item Value Reference Range Interpretation Comments Antibody Scrn (test Negative (11/08/21 8:00 code = Antibody Scrn) AM) [facility]LDFFMNTSH4515[facility]-57 13:00:00 Test Item Value Reference Range Interpretation Comments WBC (test code = WBC) 5.7 3.7-10.4 [facility] HospitalWsuyymnFETJVXCYMF4913-68-82 13:00:00 Test Item Value Reference Range Interpretation Comments RBC (test code = RBC) 4.88 4.20-5.40 [facility] HospitalMyffndmABOBUJIBKC4675-75-98 13:00:00 Test Item Value Reference Range Interpretation Comments Hgb (test code = Hgb) 14.4 12.0-16.0 [facility] HospitalTmpyprgBZIMDRHEYD6957-48-38 13:00:00 Test Item Value Reference Range Interpretation Comments Hct (test code = Hct) 42.9 36.0-48.0 [facility] HospitalVkclrrjLSSLNWNIZM2987-48-31 13:00:00 Test Item Value Reference Range Interpretation Comments MCV (test code = MCV) 87.9 80.0-98.0 [facility] HospitalGcqosxuPWOXFYZMHG7444-06-46 13:00:00 Test Item Value Reference Range Interpretation Comments MCH (test code = MCH) 29.5 pg 27.0-31.0 [facility] HospitalQzekpqzOZPBYCAUKD8625-00-53 13:00:00 Test Item Value Reference Range Interpretation Comments MCHC (test code = MCHC) 33.6 32.0-36.0 [facility] HospitalEbqqusyWLEPQSULGH7523-07-79 13:00:00 Test Item Value Reference Range Interpretation Comments RDW (test code = RDW) 14.5 11.5-14.5 [facility] CypressNhjggqeORAOMYGKNW3018-62-31 13:00:00 Test Item Value Reference Range Interpretation Comments Platelet (test code = Platelet) 264 133-450 [facility] CypressJgidwnnHWGCOLHLIJ7924-58-74 13:00:00 Test Item Value Reference Range Interpretation Comments MPV (test code = MPV) 8.3 7.4-10.4 [facility] CypressFavsxzxKWXEJZAWJO0109-12-48 13:00:00 Test Item Value Reference Range Interpretation Comments Segs (test code = Segs) 54.7 45.0-75.0 [facility] CypressOpylkqcCRGZMTAEEZ4152-50-03 13:00:00 Test Item Value Reference Range Interpretation Comments Lymphocytes (test code = Lymphocytes) 34.4 20.0-40.0 [facility] CypressBsrdcsdTTNTXUTDKD5660-59-71 13:00:00 Test Item Value Reference Range Interpretation Comments Monocytes (test code = Monocytes) 8.2 2.0-12.0 [facility] CypressEfkrbkwYDHREYVSYM1174-06-12 13:00:00 Test Item Value Reference Range Interpretation Comments Eosinophils (test code = Eosinophils) 2.1 <=4.0 [facility] CypressCongsgiEETFGVJLIU1794-86-90 13:00:00 Test Item Value Reference Range Interpretation Comments Basophils (test code = Basophils) 0.6 <=1.0 [facility] HospitalAjhssmrVDDTEWJMEL0735-10-37 13:00:00 Test Item Value Reference Range Interpretation Comments Neutrophils # (test code = Neutrophils 3.1 1.5-8.1 #) [facility] CypressKflgpnwHWWHVWTWGV3411-31-87 13:00:00 Test Item Value Reference Range Interpretation Comments Lymphocytes # (test code = Lymphocytes 2.0 1.0-5.5 #) [facility] CypressGmeirueWXHHVJYXCS3025-70-99 13:00:00 Test Item Value Reference Range Interpretation Comments Monocytes # (test code = Monocytes #) 0.5 <=0.8 [facility] CypressTarkrxyJBUYRWOQHO9105-83-02 13:00:00 Test Item Value Reference Range Interpretation Comments Eosinophils # (test code = Eosinophils 0.1 <=0.5 #) [facility] UKXUUCZ3675-97-47 13:00:00 Test Item Value Reference Range Interpretation Comments ABO/Rh (test code = ABO/Rh) A POS [facility] [employer] EYQHQZY2281-32-83 13:00:00 Test Item Value Reference Range Interpretation Comments Antibody Scrn (test Negative (11/08/21 8:00 code = Antibody Scrn) AM) [facility] CypressGsudfvfXXXLKELNDC5328-05-82 13:00:00 Test Item Value Reference Range Interpretation Comments WBC (test code = WBC) 5.7 3.7-10.4 [facility] CypressBetcduzGCSDIZQPTY0409-92-99 13:00:00 Test Item Value Reference Range Interpretation Comments RBC (test code = RBC) 4.88 4.20-5.40 [facility] CypressKssfcrnDLIRGVCMOX9701-98-60 13:00:00 Test Item Value Reference Range Interpretation Comments Hgb (test code = Hgb) 14.4 12.0-16.0 [facility] CypressAacqelnEDJTSZWWSJ0801-53-54 13:00:00 Test Item Value Reference Range Interpretation Comments Hct (test code = Hct) 42.9 36.0-48.0 [facility] CypressUobywmnCVQYMVUCGS9790-33-32 13:00:00 Test Item Value Reference Range Interpretation Comments MCV (test code = MCV) 87.9 80.0-98.0 [facility] CypressSpmyauwHAJBCUWEMJ1124-50-66 13:00:00 Test Item Value Reference Range Interpretation Comments MCH (test code = MCH) 29.5 pg 27.0-31.0 [facility] CypressUpqnypkAPWDHINCMO6745-27-22 13:00:00 Test Item Value Reference Range Interpretation Comments MCHC (test code = MCHC) 33.6 32.0-36.0 [facility] CypressCgohwuiGNQRKTEKZZ8187-30-44 13:00:00 Test Item Value Reference Range Interpretation Comments RDW (test code = RDW) 14.5 11.5-14.5 [facility] CypressPmhildyBBBNGTDHZN8734-64-98 13:00:00 Test Item Value Reference Range Interpretation Comments Platelet (test code = Platelet) 264 133-450 [facility] CypressUddzrvxXLWTBOGMPB2617-01-80 13:00:00 Test Item Value Reference Range Interpretation Comments MPV (test code = MPV) 8.3 7.4-10.4 [facility] CypressRkqfvxoSTMHFVMGTD0401-77-65 13:00:00 Test Item Value Reference Range Interpretation Comments Segs (test code = Segs) 54.7 45.0-75.0 [facility] CypressLnaybooQLTKHCEMRQ6536-29-03 13:00:00 Test Item Value Reference Range Interpretation Comments Lymphocytes (test code = Lymphocytes) 34.4 20.0-40.0 [facility] CypressBtwwnwsOUBKXNTAMH9919-28-62 13:00:00 Test Item Value Reference Range Interpretation Comments Monocytes (test code = Monocytes) 8.2 2.0-12.0 [facility] CypressJtigicmSCKJMOWPLB4367-38-15 13:00:00 Test Item Value Reference Range Interpretation Comments Eosinophils (test code = Eosinophils) 2.1 <=4.0 [facility] CypressLkbrwepGUQPMJAZLU9347-17-21 13:00:00 Test Item Value Reference Range Interpretation Comments Basophils (test code = Basophils) 0.6 <=1.0 [facility] CypressBgqmrumVMWUEFKJUY6718-06-33 13:00:00 Test Item Value Reference Range Interpretation Comments Neutrophils # (test code = Neutrophils 3.1 1.5-8.1 #) [facility] CypressPvprlnrNOPRWSTXOC4542-29-81 13:00:00 Test Item Value Reference Range Interpretation Comments Lymphocytes # (test code = Lymphocytes 2.0 1.0-5.5 #) [facility] CypressDbsejthYJAXODKFDB5306-18-71 13:00:00 Test Item Value Reference Range Interpretation Comments Monocytes # (test code = Monocytes #) 0.5 <=0.8 [facility] CypressQqxxirnIRZLCBDPQT6434-36-38 13:00:00 Test Item Value Reference Range Interpretation Comments Eosinophils # (test code = Eosinophils 0.1 <=0.5 #) [facility] MQOTZDL3333-04-59 13:00:00 Test Item Value Reference Range Interpretation Comments ABO/Rh (test code = ABO/Rh) A POS [facility] HYGLKHJ3222-07-29 13:00:00 Test Item Value Reference Range Interpretation Comments Antibody Scrn (test Negative (11/08/21 8:00 code = Antibody Scrn) AM) [facility] CypressFszxpawPKAYUCKJQK0430-23-97 13:00:00 Test Item Value Reference Range Interpretation Comments WBC (test code = WBC) 5.7 3.7-10.4 [facility] CypressHeoroasLJVROVGCSD6858-87-03 13:00:00 Test Item Value Reference Range Interpretation Comments RBC (test code = RBC) 4.88 4.20-5.40 [facility] CypressEcmawppVHQBDEPTRD6684-71-73 13:00:00 Test Item Value Reference Range Interpretation Comments Hgb (test code = Hgb) 14.4 12.0-16.0 [facility] CypressLyodoauKHXKOYTMHG2548-52-96 13:00:00 Test Item Value Reference Range Interpretation Comments Hct (test code = Hct) 42.9 36.0-48.0 [facility] CypressLuualnoZXZKHBKGMR9908-52-76 13:00:00 Test Item Value Reference Range Interpretation Comments MCV (test code = MCV) 87.9 80.0-98.0 [place]7592-07-14 13:00:00 Test Item Value Reference Range Interpretation Comments MCH (test code = MCH) 29.5 pg 27.0-31.0 [place] 747592-07-14 13:00:00 Test Item Value Reference Range Interpretation Comments MCHC (test code = MCHC) 33.6 32.0-36.0 [facility] CypressBoqzxvmGCUZEGQYVV2437-26-71 13:00:00 Test Item Value Reference Range Interpretation Comments RDW (test code = RDW) 14.5 11.5-14.5 [place] 747592-07-14 13:00:00 Test Item Value Reference Range Interpretation Comments Platelet (test code = Platelet) 264 133-450 [facility] CypressCnylspbLVGIENVTWJ4591-84-22 13:00:00 Test Item Value Reference Range Interpretation Comments MPV (test code = MPV) 8.3 7.4-10.4 [facility] CypressBuhlrdvZBBWDZYAOR8745-00-05 13:00:00 Test Item Value Reference Range Interpretation Comments Segs (test code = Segs) 54.7 45.0-75.0 [facility] CypressJxjvsqrIEUOSKILQS7959-66-72 13:00:00 Test Item Value Reference Range Interpretation Comments Lymphocytes (test code = Lymphocytes) 34.4 20.0-40.0 [place] 747592-07-14 13:00:00 Test Item Value Reference Range Interpretation Comments Monocytes (test code = Monocytes) 8.2 2.0-12.0 [place] 747592-07-14 13:00:00 Test Item Value Reference Range Interpretation Comments Eosinophils (test code = 2.1 See_Comment [A utomated message] The Eosinophils) system which ge nerated this result tra nsmitted reference range : <=4.0. The reference r abdifatah was not used to int erpret this result as normal/abnormal . [facility] CypressGdhrjlrEZIHAQBYUA6284-84-63 13:00:00 Test Item Value Reference Range Interpretation Comments Basophils (test code = 0.6 See_Comment [Aut omated message] The Basophils) system which ge nerated this result tra nsmitted reference range : <=1.0. The reference r abdifatah was not used to int erpret this result as normal/abnormal . [facility] CypressKebeqtcGXSXAAPVFW3685-81-82 13:00:00 Test Item Value Reference Range Interpretation Comments Neutrophils # (test code = Neutrophils 3.1 1.5-8.1 #) [facility] CypressOfucierJENFYQFUIC4918-41-70 13:00:00 Test Item Value Reference Range Interpretation Comments Lymphocytes # (test code = Lymphocytes 2.0 1.0-5.5 #) [facility] CypressPkeizbkUYMTIEFXRR0006-94-20 13:00:00 Test Item Value Reference Range Interpretation Comments Monocytes # (test code 0.5 See_Comment [Aut omated message] The = Monocytes #) system which generated this result tra nsmitted reference range : <=0.8. The reference r abdifatah was not used to int erpret this result as normal/abnormal . [facility] CypressClqkwuaLHZOQCWXJS2026-86-44 13:00:00 Test Item Value Reference Range Interpretation Comments Eosinophils # (test code 0.1 See_Comment [A utomated message] The = Eosinophils #) system whic h generated this result tra nsmitted reference range : <=0.5. The reference r abdifatah was not used to int erpret this result as normal/abnormal . [facility]ressSec[facility] BAPTVMT8682-20-38 13:00:00 Test Item Value Reference Range Interpretation Comments ABO/Rh (test code = ABO/Rh) [facility] NSXKCTY7494-45-70 13:00:00 Test Item Value Reference Range Interpretation Comments Antibody Scrn (test Negative (11/08/21 8:00 code = Antibody Scrn) AM) [facility] CypressCzwcglhTKRSBNDICO5706-47-39 13:00:00 Test Item Value Reference Range Interpretation Comments WBC (test code = WBC) 5.7 3.7-10.4 [facility] CypressPbqzrqmQKGUNLVWSR9095-71-24 13:00:00 Test Item Value Reference Range Interpretation Comments RBC (test code = RBC) 4.88 4.20-5.40 [facility] CypressVkibhinXNFTMNHIRC3432-04-55 13:00:00 Test Item Value Reference Range Interpretation Comments Hgb (test code = Hgb) 14.4 12.0-16.0 [facility] CypressNqasnflTKTVHVLFVM7441-89-97 13:00:00 Test Item Value Reference Range Interpretation Comments Hct (test code = Hct) 42.9 36.0-48.0 [facility] CypressZhvvrosEMQYKVADRS2629-43-67 13:00:00 Test Item Value Reference Range Interpretation Comments MCV (test code = MCV) 87.9 80.0-98.0 [facility] CypressCojecagMPGILLYZXB8075-33-52 13:00:00 Test Item Value Reference Range Interpretation Comments MCH (test code = MCH) 29.5 pg 27.0-31.0 [facility] CypressEqnzwzgKIPTMQEXBW3785-71-09 13:00:00 Test Item Value Reference Range Interpretation Comments MCHC (test code = MCHC) 33.6 32.0-36.0 [facility] CypressJrclrqmSABUDVIEXB7379-40-23 13:00:00 Test Item Value Reference Range Interpretation Comments RDW (test code = RDW) 14.5 11.5-14.5 [facility] CypressYtnrlwkGBYUYQMJKB9571-39-56 13:00:00 Test Item Value Reference Range Interpretation Comments Platelet (test code = Platelet) 264 133-450 [facility] CypressCxksdcoVPUNWKZXHQ2387-63-16 13:00:00 Test Item Value Reference Range Interpretation Comments MPV (test code = MPV) 8.3 7.4-10.4 [facility] CypressYdxatxjVFANVRTPOD9314-42-88 13:00:00 Test Item Value Reference Range Interpretation Comments Segs (test code = Segs) 54.7 45.0-75.0 [facility] CypressNwchekuAMOLEPHIZN1242-91-38 13:00:00 Test Item Value Reference Range Interpretation Comments Lymphocytes (test code = Lymphocytes) 34.4 20.0-40.0 [facility] CypressUidvzddAWZRYLXPLD5660-57-39 13:00:00 Test Item Value Reference Range Interpretation Comments Monocytes (test code = Monocytes) 8.2 2.0-12.0 [facility] CypressKnqvnrzWGQZKXMTEC6730-68-13 13:00:00 Test Item Value Reference Range Interpretation Comments Eosinophils (test code = Eosinophils) 2.1 <=4.0 [facility] CypressBoernoqXDIRYRTLAF7399-74-23 13:00:00 Test Item Value Reference Range Interpretation Comments Basophils (test code = Basophils) 0.6 <=1.0 [place] [address]-07-14 13:00:00 Test Item Value Reference Range Interpretation Comments Neutrophils # (test code = Neutrophils 3.1 1.5-8.1 #) [facility] CypressYalrthnHFOIQGGEIP1303-21-29 13:00:00 Test Item Value Reference Range Interpretation Comments Lymphocytes # (test code = Lymphocytes 2.0 1.0-5.5 #) [facility] CypressQbhvwblMDIYITABPS7204-82-42 13:00:00 Test Item Value Reference Range Interpretation Comments Monocytes # (test code = Monocytes #) 0.5 <=0.8 [facility] CypressOghdnxaBEKZPTVXOL0487-79-57 13:00:00 Test Item Value Reference Range Interpretation Comments Eosinophils # (test code = Eosinophils 0.1 <=0.5 #) [facility] RJDWWYJ0789-38-04 13:00:00 Test Item Value Reference Range Interpretation Comments ABO/Rh (test code = ABO/Rh) A POS [facility] BBCSRZR5553-06-27 13:00:00 Test Item Value Reference Range Interpretation Comments Antibody Scrn (test Negative (11/08/21 8:00 code = Antibody Scrn) AM) [facility] CypressDxyvqhpPPTUQYWQLO9814-57-79 13:00:00 Test Item Value Reference Range Interpretation Comments WBC (test code = WBC) 5.7 3.7-10.4 [facility] CypressSdmmpvwQRNXICRBPO7915-08-44 13:00:00 Test Item Value Reference Range Interpretation Comments RBC (test code = RBC) 4.88 4.20-5.40 [facility] CypressTwtlfsqLPWGSMBSWQ6632-34-46 13:00:00 Test Item Value Reference Range Interpretation Comments Hgb (test code = Hgb) 14.4 12.0-16.0 [facility] CypressGkssnenQACCROCOWC2137-35-34 13:00:00 Test Item Value Reference Range Interpretation Comments Hct (test code = Hct) 42.9 36.0-48.0 [facility] CypressUojbsjfJAHQJRHDDY0492-65-39 13:00:00 Test Item Value Reference Range Interpretation Comments MCV (test code = MCV) 87.9 80.0-98.0 [facility] CypressDwwsigiEATQRXWCWB0393-06-07 13:00:00 Test Item Value Reference Range Interpretation Comments MCH (test code = MCH) 29.5 pg 27.0-31.0 [facility] CypressXgjskvqNASTSKOWCV3635-04-76 13:00:00 Test Item Value Reference Range Interpretation Comments MCHC (test code = MCHC) 33.6 32.0-36.0 [facility] CypressFcsbwuqUXRDJQGUSA4457-20-84 13:00:00 Test Item Value Reference Range Interpretation Comments RDW (test code = RDW) 14.5 11.5-14.5 [facility] CypressMwnpmsaSCPWJVFZCN5723-44-93 13:00:00 Test Item Value Reference Range Interpretation Comments Platelet (test code = Platelet) 264 133-450 [facility] CypressCrzclcuCAAZKEBDUL5001-72-61 13:00:00 Test Item Value Reference Range Interpretation Comments MPV (test code = MPV) 8.3 7.4-10.4 [facility] CypressEvftexlMKRJDEDRPM3349-26-84 13:00:00 Test Item Value Reference Range Interpretation Comments Segs (test code = Segs) 54.7 45.0-75.0 [facility] CypressCrrnzwtWJAFBFHSXJ2780-32-82 13:00:00 Test Item Value Reference Range Interpretation Comments Lymphocytes (test code = Lymphocytes) 34.4 20.0-40.0 [facility] CypressOxnodswIZTDKQJHVG8488-08-78 13:00:00 Test Item Value Reference Range Interpretation Comments Monocytes (test code = Monocytes) 8.2 2.0-12.0 [facility] CypressKkmlmsxMIKQNSKBGT6745-62-70 13:00:00 Test Item Value Reference Range Interpretation Comments Eosinophils (test code = Eosinophils) 2.1 <=4.0 [facility] CypressYvfjwlmXPWQXXEHSP2508-85-58 13:00:00 Test Item Value Reference Range Interpretation Comments Basophils (test code = Basophils) 0.6 <=1.0 [facility] CypressWebuerhWOPDFSWHXO5785-82-11 13:00:00 Test Item Value Reference Range Interpretation Comments Neutrophils # (test code = Neutrophils 3.1 1.5-8.1 #) [facility] CypressNztxkpcEFQRNFJFCI6765-83-62 13:00:00 Test Item Value Reference Range Interpretation Comments Lymphocytes # (test code = Lymphocytes 2.0 1.0-5.5 #) [facility] CypressPwgefyqMPZJFDBUCZ4127-40-94 13:00:00 Test Item Value Reference Range Interpretation Comments Monocytes # (test code = Monocytes #) 0.5 <=0.8 [facility] CypressHyodznqQKZJWCNFLU1699-15-76 13:00:00 Test Item Value Reference Range Interpretation Comments Eosinophils # (test code = Eosinophils 0.1 <=0.5 #) [facility] QXELPNW0865-90-87 13:00:00 Test Item Value Reference Range Interpretation Comments ABO/Rh (test code = ABO/Rh) A POS [facility] [employer] [id number] 13:00:00 Test Item Value Reference Range Interpretation Comments Antibody Scrn (test Negative (11/08/21 8:00 code = Antibody Scrn) AM) [facility] CypressEvqyivdOSZVLASWKV3173-86-99 13:00:00 Test Item Value Reference Range Interpretation Comments WBC (test code = WBC) 5.7 3.7-10.4 [facility] HospitalCufsurtVAFJNEMBKO2345-72-15 13:00:00 Test Item Value Reference Range Interpretation Comments RBC (test code = RBC) 4.88 4.20-5.40 [facility] CypressZqrhekxWXUIEGKISM7267-07-79 13:00:00 Test Item Value Reference Range Interpretation Comments Hgb (test code = Hgb) 14.4 12.0-16.0 [facility] HospitalHvnnxxfQDGCFSZULN6417-51-44 13:00:00 Test Item Value Reference Range Interpretation Comments Hct (test code = Hct) 42.9 36.0-48.0 [facility] HospitalDgzrodfBNICQCZQFM3907-81-13 13:00:00 Test Item Value Reference Range Interpretation Comments MCV (test code = MCV) 87.9 80.0-98.0 [facility] CypressJwcfjcdQGOZXTVATF9814-41-34 13:00:00 Test Item Value Reference Range Interpretation Comments MCH (test code = MCH) 29.5 pg 27.0-31.0 [facility] HospitalLcewlbxXCGCDDLBEO3150-31-14 13:00:00 Test Item Value Reference Range Interpretation Comments MCHC (test code = MCHC) 33.6 32.0-36.0 [facility] CypressAeadeamULWLSGPZYZ8719-97-86 13:00:00 Test Item Value Reference Range Interpretation Comments RDW (test code = RDW) 14.5 11.5-14.5 [facility] CypressAabxfbvTLSSOAUSET5664-29-93 13:00:00 Test Item Value Reference Range Interpretation Comments Platelet (test code = Platelet) 264 133-450 [facility] CypressOzzhoxbNDBETWGVDC3101-26-59 13:00:00 Test Item Value Reference Range Interpretation Comments MPV (test code = MPV) 8.3 7.4-10.4 [place] 747592-07-14 13:00:00 Test Item Value Reference Range Interpretation Comments Segs (test code = Segs) 54.7 45.0-75.0 [place] 747592-07-14 13:00:00 Test Item Value Reference Range Interpretation Comments Lymphocytes (test code = Lymphocytes) 34.4 20.0-40.0 [place] 747592-07-14 13:00:00 Test Item Value Reference Range Interpretation Comments Monocytes (test code = Monocytes) 8.2 2.0-12.0 [place] 747592-07-14 13:00:00 Test Item Value Reference Range Interpretation Comments Eosinophils (test code = 2.1 See_Comment [A utomated message] The Eosinophils) system which ge nerated this result tra nsmitted reference range : <=4.0. The reference r abdifatah was not used to int erpret this result as normal/abnormal . [place] 747592-07-14 13:00:00 Test Item Value Reference Range Interpretation Comments Basophils (test code = 0.6 See_Comment [Aut omated message] The Basophils) system which ge nerated this result tra nsmitted reference range : <=1.0. The reference r abdifatah was not used to int erpret this result as normal/abnormal . [facility] CypressRaqkgwsCHNLWNWBJV4741-99-08 13:00:00 Test Item Value Reference Range Interpretation Comments Neutrophils # (test code = Neutrophils 3.1 1.5-8.1 #) [facility] CypressUajrcjoOMJKBTOZDO9620-65-05 13:00:00 Test Item Value Reference Range Interpretation Comments Lymphocytes # (test code = Lymphocytes 2.0 1.0-5.5 #) [place] 747592-07-14 13:00:00 Test Item Value Reference Range Interpretation Comments Monocytes # (test code 0.5 See_Comment [Aut omated message] The = Monocytes #) system which generated this result tra nsmitted reference range : <=0.8. The reference r abdifatah was not used to int erpret this result as normal/abnormal . [place] 747592-07-14 13:00:00 Test Item Value Reference Range Interpretation Comments Eosinophils # (test code 0.1 See_Comment [A utomated message] The = Eosinophils #) system whic h generated this result tra nsmitted reference range : <=0.5. The reference r abdifatah was not used to int erpret this result as normal/abnormal . [facility] [id number] 13:00:00 Test Item Value Reference Range Interpretation Comments ABO/Rh (test code = ABO/Rh) A POS [facility] [id number] 13:00:00 Test Item Value Reference Range Interpretation Comments Antibody Scrn (test Negative (11/08/21 8:00 code = Antibody Scrn) AM) [facility] CypressBchzbhhRSBEAQZVCQ4689-77-09 13:00:00 Test Item Value Reference Range Interpretation Comments WBC (test code = WBC) 5.7 3.7-10.4 [facility]JdjqgmvFMIKLDOSKT7073-92-03 13:00:00 Test Item Value Reference Range Interpretation Comments RBC (test code = RBC) 4.88 4.20-5.40 [facility]ressHwrarpmXKAOYGULZQ2949-14-57 13:00:00 Test Item Value Reference Range Interpretation Comments Hgb (test code = Hgb) 14.4 12.0-16.0 [facility] CypressKejvbnySKECVMYAJN3640-34-64 13:00:00 Test Item Value Reference Range Interpretation Comments Hct (test code = Hct) 42.9 36.0-48.0 [facility] CypressSbsrnprUHMOYFZSDN7816-40-85 13:00:00 Test Item Value Reference Range Interpretation Comments MCV (test code = MCV) 87.9 80.0-98.0 [facility] CypressIpsfwkqHKKXVQHQJJ2742-13-54 13:00:00 Test Item Value Reference Range Interpretation Comments MCH (test code = MCH) 29.5 pg 27.0-31.0 [facility] CypressVhjijqrLNQPSHMBDA9932-15-41 13:00:00 Test Item Value Reference Range Interpretation Comments MCHC (test code = MCHC) 33.6 32.0-36.0 [facility] CypressUiqvqmvEGLNHHPWXS1233-59-96 13:00:00 Test Item Value Reference Range Interpretation Comments RDW (test code = RDW) 14.5 11.5-14.5 [facility] CypressNybhcisPSDNPPJSIU0448-50-18 13:00:00 Test Item Value Reference Range Interpretation Comments Platelet (test code = Platelet) 264 133-450 [facility] CypressWtkqxepVFNQGSCFKF8073-51-12 13:00:00 Test Item Value Reference Range Interpretation Comments MPV (test code = MPV) 8.3 7.4-10.4 [place] 747592-07-14 13:00:00 Test Item Value Reference Range Interpretation Comments Segs (test code = Segs) 54.7 45.0-75.0 [place] 747592-07-14 13:00:00 Test Item Value Reference Range Interpretation Comments Lymphocytes (test code = Lymphocytes) 34.4 20.0-40.0 [place] 747592-07-14 13:00:00 Test Item Value Reference Range Interpretation Comments Monocytes (test code = Monocytes) 8.2 2.0-12.0 [place] 747592-07-14 13:00:00 Test Item Value Reference Range Interpretation Comments Eosinophils (test code = 2.1 See_Comment [A utomated message] The Eosinophils) system which ge nerated this result tra nsmitted reference range : <=4.0. The reference r abdifatah was not used to int erpret this result as normal/abnormal . [facility] CypressZbwbahlETMLEQLWQD2551-71-26 13:00:00 Test Item Value Reference Range Interpretation Comments Basophils (test code = 0.6 See_Comment [Aut omated message] The Basophils) system which ge nerated this result tra nsmitted reference range : <=1.0. The reference r abdifatah was not used to int erpret this result as normal/abnormal . [facility] CypressGiaanftZBBHNIJHTK8654-42-82 13:00:00 Test Item Value Reference Range Interpretation Comments Neutrophils # (test code = Neutrophils 3.1 1.5-8.1 #) [facility] CypressSztlucuUXQWHINWXI2574-56-47 13:00:00 Test Item Value Reference Range Interpretation Comments Lymphocytes # (test code = Lymphocytes 2.0 1.0-5.5 #) [place] 747592-07-14 13:00:00 Test Item Value Reference Range Interpretation Comments Monocytes # (test code 0.5 See_Comment [Aut omated message] The = Monocytes #) system which generated this result tra nsmitted reference range : <=0.8. The reference r abdifatah was not used to int erpret this result as normal/abnormal . [place] 747592-07-14 13:00:00 Test Item Value Reference Range Interpretation Comments Eosinophils # (test code 0.1 See_Comment [A utomated message] The = Eosinophils #) system whic h generated this result tra nsmitted reference range : <=0.5. The reference r abdifatah was not used to int erpret this result as normal/abnormal . [facility] JEOCBRH2488-28-29 13:00:00 Test Item Value Reference Range Interpretation Comments ABO/Rh (test code = ABO/Rh) A POS [facility] [id number] 13:00:00 Test Item Value Reference Range Interpretation Comments Antibody Scrn (test Negative (11/08/21 8:00 code = Antibody Scrn) AM) [facility] CypressEdoklqbJATBCVJQQV2361-85-13 13:00:00 Test Item Value Reference Range Interpretation Comments WBC (test code = WBC) 5.7 3.7-10.4 [facility] CypressWtogirpINPPHAJHJO1852-29-65 13:00:00 Test Item Value Reference Range Interpretation Comments RBC (test code = RBC) 4.88 4.20-5.40 [facility] CypressMkioeohYKFGTJWDNX2043-14-08 13:00:00 Test Item Value Reference Range Interpretation Comments Hgb (test code = Hgb) 14.4 12.0-16.0 [facility] CypressUdlabshMNIRDCNECR7075-10-60 13:00:00 Test Item Value Reference Range Interpretation Comments Hct (test code = Hct) 42.9 36.0-48.0 [facility] CypressPfjglsuSHWJUNZEWZ2644-79-84 13:00:00 Test Item Value Reference Range Interpretation Comments MCV (test code = MCV) 87.9 80.0-98.0 [facility] CypressMdsrslzLRTYGLCDEC3807-12-75 13:00:00 Test Item Value Reference Range Interpretation Comments MCH (test code = MCH) 29.5 pg 27.0-31.0 [facility] CypressQsnbrbcBOMWMLJPXA8861-73-49 13:00:00 Test Item Value Reference Range Interpretation Comments MCHC (test code = MCHC) 33.6 32.0-36.0 [facility] CypressKybmhtwCCVYPJBZIR1128-88-40 13:00:00 Test Item Value Reference Range Interpretation Comments RDW (test code = RDW) 14.5 11.5-14.5 [facility] CypressIuzjgxzSBLCHHMDXZ9953-05-84 13:00:00 Test Item Value Reference Range Interpretation Comments Platelet (test code = Platelet) 264 133-450 [facility] CypressHhkimufQWMUTKYZBK2362-61-92 13:00:00 Test Item Value Reference Range Interpretation Comments MPV (test code = MPV) 8.3 7.4-10.4 [facility] CypressGwmfgzkSLTBVNGMUA7389-86-22 13:00:00 Test Item Value Reference Range Interpretation Comments Segs (test code = Segs) 54.7 45.0-75.0 [facility] CypressErgmneiHPDRGBQTOT3619-12-81 13:00:00 Test Item Value Reference Range Interpretation Comments Lymphocytes (test code = Lymphocytes) 34.4 20.0-40.0 [facility] CypressPsqujmtBHBIFXYJBK9555-66-56 13:00:00 Test Item Value Reference Range Interpretation Comments Monocytes (test code = Monocytes) 8.2 2.0-12.0 [facility] CypressYbenhtsKLGBBJQHBY7621-21-63 13:00:00 Test Item Value Reference Range Interpretation Comments Eosinophils (test code = 2.1 See_Comment [A utomated message] The Eosinophils) system which ge nerated this result tra nsmitted reference range : <=4.0. The reference r abdifatah was not used to int erpret this result as normal/abnormal . [facility] CypressJevpytcVLKHEURQXD3757-17-03 13:00:00 Test Item Value Reference Range Interpretation Comments Basophils (test code = 0.6 See_Comment [Aut omated message] The Basophils) system which ge nerated this result tra nsmitted reference range : <=1.0. The reference r abdifatah was not used to int erpret this result as normal/abnormal . [facility] CypressWgqjbwyDHHMUBJXCX5325-96-02 13:00:00 Test Item Value Reference Range Interpretation Comments Neutrophils # (test code = Neutrophils 3.1 1.5-8.1 #) [facility] CypressBilrsixVOAGRAUSNQ4353-53-25 13:00:00 Test Item Value Reference Range Interpretation Comments Lymphocytes # (test code = Lymphocytes 2.0 1.0-5.5 #) [place] 747592-07-14 13:00:00 Test Item Value Reference Range Interpretation Comments Monocytes # (test code 0.5 See_Comment [Aut omated message] The = Monocytes #) system which generated this result tra nsmitted reference range : <=0.8. The reference r abdifatah was not used to int erpret this result as normal/abnormal . [place] [address]-07-14 13:00:00 Test Item Value Reference Range Interpretation Comments Eosinophils # (test code 0.1 See_Comment [A utomated message] The = Eosinophils #) system eTask.itic h generated this result tra nsmitted reference range : <=0.5. The reference r abdifatah was not used to int erpret this result as normal/abnormal . [place] 305392-04-28 15:22:00 Test Item Value Reference Range Interpretation Comments Coronavirus (COVID-19) Not Detected (08/23/21 KASSY (test code = 10:22 AM) Coronavirus (COVID-19) KASSY) [place] [address]-04-28 15:22:00 Test Item Value Reference Range Interpretation Comments Coronavirus (COVID-19) Not Detected (08/23/21 KASSY (test code = 10:22 AM) Coronavirus (COVID-19) KASSY) [place] [address]-04-28 15:22:00 Test Item Value Reference Range Interpretation Comments Coronavirus (COVID-19) Not Detected (08/23/21 KASSY (test code = 10:22 AM) Coronavirus (COVID-19) KASSY) [place] [address]-04-28 15:22:00 Test Item Value Reference Range Interpretation Comments Coronavirus (COVID-19) Not Detected (08/23/21 KASSY (test code = 10:22 AM) Coronavirus (COVID-19) KASSY) [place] [address]-04-28 15:22:00 Test Item Value Reference Range Interpretation Comments Coronavirus (COVID-19) Not Detected (08/23/21 KASSY (test code = 10:22 AM) Coronavirus (COVID-19) KASSY) [place] [address]-04-28 15:22:00 Test Item Value Reference Range Interpretation Comments Coronavirus (COVID-19) Not Detected (08/23/21 KASSY (test code = 10:22 AM) Coronavirus (COVID-19) KASSY) [place] [address]-04-28 15:22:00 Test Item Value Reference Range Interpretation Comments Coronavirus (COVID-19) Not Detected (08/23/21 KASSY (test code = 10:22 AM) Coronavirus (COVID-19) KASSY) [place] [address]-04-28 15:22:00 Test Item Value Reference Range Interpretation Comments Coronavirus (COVID-19) Not Detected (08/23/21 KASSY (test code = 10:22 AM) Coronavirus (COVID-19) KASSY) [place] [address]-04-28 15:22:00 Test Item Value Reference Range Interpretation Comments Coronavirus (COVID-19) Not Detected (08/23/21 KASSY (test code = 10:22 AM) Coronavirus (COVID-19) KASSY) [place] [address]-04-28 15:22:00 Test Item Value Reference Range Interpretation Comments Coronavirus (COVID-19) Not Detected (08/23/21 KASSY (test code = 10:22 AM) Coronavirus (COVID-19) KASSY) [place] [address]-04-28 15:22:00 Test Item Value Reference Range Interpretation Comments Coronavirus (COVID-19) Not Detected (08/23/21 KASSY (test code = 10:22 AM) Coronavirus (COVID-19) KASSY) [place] [address]-04-28 15:22:00 Test Item Value Reference Range Interpretation Comments Coronavirus (COVID-19) Not Detected (08/23/21 KASSY (test code = 10:22 AM) Coronavirus (COVID-19) KASSY) [place] [address]-04-28 15:22:00 Test Item Value Reference Range Interpretation Comments Coronavirus (COVID-19) Not Detected (08/23/21 KASSY (test code = 10:22 AM) Coronavirus (COVID-19) KASSY) [place] [address]-04-28 15:22:00 Test Item Value Reference Range Interpretation Comments Coronavirus (COVID-19) Not Detected (08/23/21 KASSY (test code = 10:22 AM) Coronavirus (COVID-19) KASSY) [place] [address]-04-28 15:22:00 Test Item Value Reference Range Interpretation Comments Coronavirus (COVID-19) Not Detected (08/23/21 KASSY (test code = 10:22 AM) Coronavirus (COVID-19) KASSY) [place] [address]-04-28 15:22:00 Test Item Value Reference Range Interpretation Comments Coronavirus (COVID-19) Not Detected (08/23/21 KASSY (test code = 10:22 AM) Coronavirus (COVID-19) KASSY) [facility] CypressNglvazhGBMBGTLAGU6176-51-14 10:42:00 Test Item Value Reference Range Interpretation Comments WBC (test code = WBC) 5.7 3.7-10.4 [facility] CypressIlhsxxcQSBEOMAAFG8643-84-60 10:42:00 Test Item Value Reference Range Interpretation Comments RBC (test code = RBC) 3.90 4.20-5.40 [facility] CypressMfylgooYWGJICMLNW3003-03-80 10:42:00 Test Item Value Reference Range Interpretation Comments Hgb (test code = Hgb) 11.6 12.0-16.0 [place] 747592-04-09 10:42:00 Test Item Value Reference Range Interpretation Comments Hct (test code = Hct) 34.7 36.0-48.0 [place] 747592-04-09 10:42:00 Test Item Value Reference Range Interpretation Comments MCV (test code = MCV) 89.1 80.0-98.0 [facility] CypressSijevjtNHIZWLXIKD4241-98-84 10:42:00 Test Item Value Reference Range Interpretation Comments MCH (test code = MCH) 29.8 pg 27.0-31.0 [facility] CypressLcdxrgsIEQVJQGZLL4939-91-57 10:42:00 Test Item Value Reference Range Interpretation Comments MCHC (test code = MCHC) 33.5 32.0-36.0 [facility] CypressFxkmhbqIFJAANDFBY4105-64-67 10:42:00 Test Item Value Reference Range Interpretation Comments RDW (test code = RDW) 14.6 11.5-14.5 [facility] CypressXljagpbRNCAYCXYTF6328-81-49 10:42:00 Test Item Value Reference Range Interpretation Comments Platelet (test code = Platelet) 259 133-450 [facility] CypressCcikxuoLKMPRBQUGX1147-27-87 10:42:00 Test Item Value Reference Range Interpretation Comments MPV (test code = MPV) 8.6 7.4-10.4 [place] 747592-04-09 10:42:00 Test Item Value Reference Range Interpretation Comments Segs (test code = Segs) 55.2 45.0-75.0 [place] 747592-04-09 10:42:00 Test Item Value Reference Range Interpretation Comments Lymphocytes (test code = Lymphocytes) 33.3 20.0-40.0 [facility] CypressLsueocrNLZLKCREON2319-12-55 10:42:00 Test Item Value Reference Range Interpretation Comments Monocytes (test code = Monocytes) 9.5 2.0-12.0 [facility] CypressUkzqasfVATYGHXICY9974-94-12 10:42:00 Test Item Value Reference Range Interpretation Comments Eosinophils (test code = Eosinophils) 1.5 <=4.0 [facility] CypressGxosmyrDZZIKLJBLP5936-20-79 10:42:00 Test Item Value Reference Range Interpretation Comments Basophils (test code = Basophils) 0.5 <=1.0 [place] 747592-04-09 10:42:00 Test Item Value Reference Range Interpretation Comments Neutrophils # (test code = Neutrophils 3.1 1.5-8.1 #) [facility] CypressPwzlvrmIQILAXQEJT4073-90-22 10:42:00 Test Item Value Reference Range Interpretation Comments Lymphocytes # (test code = Lymphocytes 1.9 1.0-5.5 #) [facility] CypressMtbndmsCZQUASHIMQ0902-61-20 10:42:00 Test Item Value Reference Range Interpretation Comments Monocytes # (test code = Monocytes #) 0.5 <=0.8 [facility] CypressOqhouhfZXOKZSXCAB2353-89-40 10:42:00 Test Item Value Reference Range Interpretation Comments Eosinophils # (test code = Eosinophils 0.1 <=0.5 #) [facility] CypressQptkqeeXGAHGKYMGW8100-17-51 10:42:00 Test Item Value Reference Range Interpretation Comments WBC (test code = WBC) 5.7 3.7-10.4 [facility] CypressKydqqtfJWIRPFOMJE8847-96-57 10:42:00 Test Item Value Reference Range Interpretation Comments RBC (test code = RBC) 3.90 4.20-5.40 [place] 747592-04-09 10:42:00 Test Item Value Reference Range Interpretation Comments Hgb (test code = Hgb) 11.6 12.0-16.0 [place] 747592-04-09 10:42:00 Test Item Value Reference Range Interpretation Comments Hct (test code = Hct) 34.7 36.0-48.0 [place] 747592-04-09 10:42:00 Test Item Value Reference Range Interpretation Comments MCV (test code = MCV) 89.1 80.0-98.0 [place] 747592-04-09 10:42:00 Test Item Value Reference Range Interpretation Comments MCH (test code = MCH) 29.8 pg 27.0-31.0 [facility] CypressXqiekyxCGHOEDMJVP4403-30-50 10:42:00 Test Item Value Reference Range Interpretation Comments MCHC (test code = MCHC) 33.5 32.0-36.0 [facility] CypressOwujurvITKLUVTSMD1242-14-89 10:42:00 Test Item Value Reference Range Interpretation Comments RDW (test code = RDW) 14.6 11.5-14.5 [facility] CypressRhwxauaAGGGLCQDTZ0612-13-96 10:42:00 Test Item Value Reference Range Interpretation Comments Platelet (test code = Platelet) 259 133-450 [facility] CypressHlykwsvDZZKMLLMUD1879-67-29 10:42:00 Test Item Value Reference Range Interpretation Comments MPV (test code = MPV) 8.6 7.4-10.4 [facility] CypressVfeniriBJHXWEERML0855-49-59 10:42:00 Test Item Value Reference Range Interpretation Comments Segs (test code = Segs) 55.2 45.0-75.0 [facility] CypressAaagvghPTUYYRJHKT6248-60-44 10:42:00 Test Item Value Reference Range Interpretation Comments Lymphocytes (test code = Lymphocytes) 33.3 20.0-40.0 [facility] CypressZxytfcxQOEZBKZYRG8477-77-04 10:42:00 Test Item Value Reference Range Interpretation Comments Monocytes (test code = Monocytes) 9.5 2.0-12.0 [facility] CypressBywallsMIOSALHUWK9737-50-77 10:42:00 Test Item Value Reference Range Interpretation Comments Eosinophils (test code = 1.5 See_Comment [A utomated message] The Eosinophils) system which ge nerated this result tra nsmitted reference range : <=4.0. The reference r abdifatah was not used to int erpret this result as normal/abnormal . [facility] CypressXvjkpnrNRJITVCANY8419-37-65 10:42:00 Test Item Value Reference Range Interpretation Comments Basophils (test code = 0.5 See_Comment [Aut omated message] The Basophils) system which ge nerated this result tra nsmitted reference range : <=1.0. The reference r abdifatah was not used to int erpret this result as normal/abnormal . [facility] CypressUarxxjxBVIYGGWOCQ4578-31-72 10:42:00 Test Item Value Reference Range Interpretation Comments Neutrophils # (test code = Neutrophils 3.1 1.5-8.1 #) [facility] CypressAiqwujsTKJRAYHIGE4059-64-49 10:42:00 Test Item Value Reference Range Interpretation Comments Lymphocytes # (test code = Lymphocytes 1.9 1.0-5.5 #) [facility] CypressViyrxwgPKGUQHYRYM5657-45-11 10:42:00 Test Item Value Reference Range Interpretation Comments Monocytes # (test code 0.5 See_Comment [Aut omated message] The = Monocytes #) system which generated this result tra nsmitted reference range : <=0.8. The reference r abdifatah was not used to int erpret this result as normal/abnormal . [facility] CypressComokupCMGEGPLDEE5548-68-06 10:42:00 Test Item Value Reference Range Interpretation Comments Eosinophils # (test code 0.1 See_Comment [A utomated message] The = Eosinophils #) system whic h generated this result tra nsmitted reference range : <=0.5. The reference r abdifatah was not used to int erpret this result as normal/abnormal . [facility] CypressSzmrnciICCKYOCMRG8479-77-78 10:42:00 Test Item Value Reference Range Interpretation Comments WBC (test code = WBC) 5.7 3.7-10.4 [facility] CypressHnugwarTYIEGPGNDY4520-44-67 10:42:00 Test Item Value Reference Range Interpretation Comments RBC (test code = RBC) 3.90 4.20-5.40 [place] 747592-04-09 10:42:00 Test Item Value Reference Range Interpretation Comments Hgb (test code = Hgb) 11.6 12.0-16.0 [place] 747592-04-09 10:42:00 Test Item Value Reference Range Interpretation Comments Hct (test code = Hct) 34.7 36.0-48.0 [place] [address]-04-09 10:42:00 Test Item Value Reference Range Interpretation Comments MCV (test code = MCV) 89.1 80.0-98.0 [place] 747592-04-09 10:42:00 Test Item Value Reference Range Interpretation Comments MCH (test code = MCH) 29.8 pg 27.0-31.0 [place] 747592-04-09 10:42:00 Test Item Value Reference Range Interpretation Comments MCHC (test code = MCHC) 33.5 32.0-36.0 [facility] CypressPsnwgvrALWRYBJDEL3839-94-36 10:42:00 Test Item Value Reference Range Interpretation Comments RDW (test code = RDW) 14.6 11.5-14.5 [facility] CypressSlpunxhWALDOKMQPR6719-56-18 10:42:00 Test Item Value Reference Range Interpretation Comments Platelet (test code = Platelet) 259 133-450 [facility] CypressJhsnzjyEHPNZRDSWG7185-20-78 10:42:00 Test Item Value Reference Range Interpretation Comments MPV (test code = MPV) 8.6 7.4-10.4 [facility] CypressLuindndBZEOTYLFIX8565-84-98 10:42:00 Test Item Value Reference Range Interpretation Comments Segs (test code = Segs) 55.2 45.0-75.0 [facility] CypressLlicbxtSPHSUFIGLS9186-87-55 10:42:00 Test Item Value Reference Range Interpretation Comments Lymphocytes (test code = Lymphocytes) 33.3 20.0-40.0 [facility] CypressWieprlgDJHHUGRJTL5476-38-37 10:42:00 Test Item Value Reference Range Interpretation Comments Monocytes (test code = Monocytes) 9.5 2.0-12.0 [facility] CypressNsntycuYXGADPMZYM8238-09-21 10:42:00 Test Item Value Reference Range Interpretation Comments Eosinophils (test code = 1.5 See_Comment [A utomated message] The Eosinophils) system which ge nerated this result tra nsmitted reference range : <=4.0. The reference r abdifatah was not used to int erpret this result as normal/abnormal . [facility] CypressBfugyucWROJVRCNVJ7386-91-26 10:42:00 Test Item Value Reference Range Interpretation Comments Basophils (test code = 0.5 See_Comment [Aut omated message] The Basophils) system which ge nerated this result tra nsmitted reference range : <=1.0. The reference r abdifatah was not used to int erpret this result as normal/abnormal . [facility] CypressLsvbweqEPBNDIYVJS0697-67-00 10:42:00 Test Item Value Reference Range Interpretation Comments Neutrophils # (test code = Neutrophils 3.1 1.5-8.1 #) [facility] CypressXmohegxTHAQUVSMJH9990-75-27 10:42:00 Test Item Value Reference Range Interpretation Comments Lymphocytes # (test code = Lymphocytes 1.9 1.0-5.5 #) [facility] CypressCvajagbKIEANGPODW5783-76-41 10:42:00 Test Item Value Reference Range Interpretation Comments Monocytes # (test code 0.5 See_Comment [Aut omated message] The = Monocytes #) system which generated this result tra nsmitted reference range : <=0.8. The reference r abdifatah was not used to int erpret this result as normal/abnormal . [facility] CypressHvytobtADZUJGDCTF3058-98-86 10:42:00 Test Item Value Reference Range Interpretation Comments Eosinophils # (test code 0.1 See_Comment [A utomated message] The = Eosinophils #) system whic h generated this result tra nsmitted reference range : <=0.5. The reference r abdifatah was not used to int erpret this result as normal/abnormal . [facility] CypressYygdfboRLHKZHUFVE3844-02-11 10:42:00 Test Item Value Reference Range Interpretation Comments WBC (test code = WBC) 5.7 3.7-10.4 [facility] CypressZqewwieHLJQKRCQCA1697-63-17 10:42:00 Test Item Value Reference Range Interpretation Comments RBC (test code = RBC) 3.90 4.20-5.40 [facility] CypressPpcxcujDYFRJLHRCP5482-57-74 10:42:00 Test Item Value Reference Range Interpretation Comments Hgb (test code = Hgb) 11.6 12.0-16.0 [facility] CypressFomescaEAREBXXEQE6142-11-89 10:42:00 Test Item Value Reference Range Interpretation Comments Hct (test code = Hct) 34.7 36.0-48.0 [facility] CypressTkdyrztXKKTGKOXJW6041-74-22 10:42:00 Test Item Value Reference Range Interpretation Comments MCV (test code = MCV) 89.1 80.0-98.0 [facility] CypressWuadriwSGDCOEXLZS0096-99-74 10:42:00 Test Item Value Reference Range Interpretation Comments MCH (test code = MCH) 29.8 pg 27.0-31.0 [facility] CypressMoecpalBJUBQXEOIL5842-60-34 10:42:00 Test Item Value Reference Range Interpretation Comments MCHC (test code = MCHC) 33.5 32.0-36.0 [place] 747592-04-09 10:42:00 Test Item Value Reference Range Interpretation Comments RDW (test code = RDW) 14.6 11.5-14.5 [place] 747592-04-09 10:42:00 Test Item Value Reference Range Interpretation Comments Platelet (test code = Platelet) 259 133-450 [facility] CypressRitvxcdYLGQHWRLOS2497-72-20 10:42:00 Test Item Value Reference Range Interpretation Comments MPV (test code = MPV) 8.6 7.4-10.4 [place] 747592-04-09 10:42:00 Test Item Value Reference Range Interpretation Comments Segs (test code = Segs) 55.2 45.0-75.0 [facility] CypressDmvcyqdZTZWUGPDDT1743-78-32 10:42:00 Test Item Value Reference Range Interpretation Comments Lymphocytes (test code = Lymphocytes) 33.3 20.0-40.0 [facility] CypressUfxkhnwFJHTWREMHH4116-58-73 10:42:00 Test Item Value Reference Range Interpretation Comments Monocytes (test code = Monocytes) 9.5 2.0-12.0 [facility]QgwvkfySCQQZIXIVC5918-69-04 10:42:00 Test Item Value Reference Range Interpretation Comments Eosinophils (test code = 1.5 See_Comment [A utomated message] The Eosinophils) system which ge nerated this result tra nsmitted reference range : <=4.0. The reference r abdifatah was not used to int erpret this result as normal/abnormal . [facility] CypressIpiqebpCRRIRBFZTO4739-39-77 10:42:00 Test Item Value Reference Range Interpretation Comments Basophils (test code = 0.5 See_Comment [Aut omated message] The Basophils) system which ge nerated this result tra nsmitted reference range : <=1.0. The reference r abdifatah was not used to int erpret this result as normal/abnormal . [facility] CypressDnlbfcuLXGAHBZWOY8966-17-23 10:42:00 Test Item Value Reference Range Interpretation Comments Neutrophils # (test code = Neutrophils 3.1 1.5-8.1 #) [facility] CypressJngcwvnHCSLPKSLPO8645-67-81 10:42:00 Test Item Value Reference Range Interpretation Comments Lymphocytes # (test code = Lymphocytes 1.9 1.0-5.5 #) [facility] CypressFlaofrkXMUTNTYKYO1379-78-56 10:42:00 Test Item Value Reference Range Interpretation Comments Monocytes # (test code 0.5 See_Comment [Aut omated message] The = Monocytes #) system which generated this result tra nsmitted reference range : <=0.8. The reference r abdifatah was not used to int erpret this result as normal/abnormal . [facility] CypressCabxuatTYCVXIMWSK4638-96-60 10:42:00 Test Item Value Reference Range Interpretation Comments Eosinophils # (test code 0.1 See_Comment [A utomated message] The = Eosinophils #) system whic h generated this result tra nsmitted reference range : <=0.5. The reference r abdifatah was not used to int erpret this result as normal/abnormal . [facility] CypressAjhqtaaQRLUVGCFGL9731-72-16 10:42:00 Test Item Value Reference Range Interpretation Comments WBC (test code = WBC) 5.7 3.7-10.4 [facility] CypressDzvxvdaDSHPKLTQZF0416-96-43 10:42:00 Test Item Value Reference Range Interpretation Comments RBC (test code = RBC) 3.90 4.20-5.40 [facility] CypressCzpiokxHTNFZCRJLR5732-21-47 10:42:00 Test Item Value Reference Range Interpretation Comments Hgb (test code = Hgb) 11.6 12.0-16.0 [place] 747592-04-09 10:42:00 Test Item Value Reference Range Interpretation Comments Hct (test code = Hct) 34.7 36.0-48.0 [facility] CypressPvrftdmBAITNXKDVG3504-16-98 10:42:00 Test Item Value Reference Range Interpretation Comments MCV (test code = MCV) 89.1 80.0-98.0 [facility] CypressYbsthaaMDYVHAPPKB0964-62-01 10:42:00 Test Item Value Reference Range Interpretation Comments MCH (test code = MCH) 29.8 pg 27.0-31.0 [facility] CypressAywkmatKPUWCRGCDX5365-80-39 10:42:00 Test Item Value Reference Range Interpretation Comments MCHC (test code = MCHC) 33.5 32.0-36.0 [place] 747592-04-09 10:42:00 Test Item Value Reference Range Interpretation Comments RDW (test code = RDW) 14.6 11.5-14.5 [place] 747592-04-09 10:42:00 Test Item Value Reference Range Interpretation Comments Platelet (test code = Platelet) 259 133-450 [facility] CypressYywkemsHAMVVSDTPI6018-31-05 10:42:00 Test Item Value Reference Range Interpretation Comments MPV (test code = MPV) 8.6 7.4-10.4 [place] [address]-04-09 10:42:00 Test Item Value Reference Range Interpretation Comments Segs (test code = Segs) 55.2 45.0-75.0 [facility] CypressKkowpzrVBWCKQYLGF4121-52-56 10:42:00 Test Item Value Reference Range Interpretation Comments Lymphocytes (test code = Lymphocytes) 33.3 20.0-40.0 [place] 747592-04-09 10:42:00 Test Item Value Reference Range Interpretation Comments Monocytes (test code = Monocytes) 9.5 2.0-12.0 [place] 747592-04-09 10:42:00 Test Item Value Reference Range Interpretation Comments Eosinophils (test code = 1.5 See_Comment [A utomated message] The Eosinophils) system which ge nerated this result tra nsmitted reference range : <=4.0. The reference r abdifatah was not used to int erpret this result as normal/abnormal . [facility] CypressJiykjpaNMYHWMEJAW7256-65-15 10:42:00 Test Item Value Reference Range Interpretation Comments Basophils (test code = 0.5 See_Comment [Aut omated message] The Basophils) system which ge nerated this result tra nsmitted reference range : <=1.0. The reference r abdifatah was not used to int erpret this result as normal/abnormal . [facility] CypressIttzoknIMAWPAXBIP7970-41-87 10:42:00 Test Item Value Reference Range Interpretation Comments Neutrophils # (test code = Neutrophils 3.1 1.5-8.1 #) [facility] CypressLbflpyhUPFGINKZBR3765-83-21 10:42:00 Test Item Value Reference Range Interpretation Comments Lymphocytes # (test code = Lymphocytes 1.9 1.0-5.5 #) [place] 747592-04-09 10:42:00 Test Item Value Reference Range Interpretation Comments Monocytes # (test code 0.5 See_Comment [Aut omated message] The = Monocytes #) system which generated this result tra nsmitted reference range : <=0.8. The reference r abdifatah was not used to int erpret this result as normal/abnormal . [facility] CypressLmehsctWRLVSURJXO6281-94-15 10:42:00 Test Item Value Reference Range Interpretation Comments Eosinophils # (test code 0.1 See_Comment [A utomated message] The = Eosinophils #) system whic h generated this result tra nsmitted reference range : <=0.5. The reference r abdifatah was not used to int erpret this result as normal/abnormal . [facility] CypressXlagqjeGEIBDHJUMH5072-64-57 10:42:00 Test Item Value Reference Range Interpretation Comments WBC (test code = WBC) 5.7 3.7-10.4 [facility] CypressPixcbviTRFVCIMZWN2130-93-55 10:42:00 Test Item Value Reference Range Interpretation Comments RBC (test code = RBC) 3.90 4.20-5.40 [facility] CypressRjqpnpdAZYJKZMJJO4857-95-72 10:42:00 Test Item Value Reference Range Interpretation Comments Hgb (test code = Hgb) 11.6 12.0-16.0 [facility] CypressFlocvrbELWCGFGYIA7073-77-70 10:42:00 Test Item Value Reference Range Interpretation Comments Hct (test code = Hct) 34.7 36.0-48.0 [facility] CypressDbzakewNZURHLUZKH6534-91-18 10:42:00 Test Item Value Reference Range Interpretation Comments MCV (test code = MCV) 89.1 80.0-98.0 [facility] CypressZmgocvpRVXRWCRYIE1025-41-88 10:42:00 Test Item Value Reference Range Interpretation Comments MCH (test code = MCH) 29.8 pg 27.0-31.0 [facility] CypressIrtlgdtJLSSQGCHBR4253-42-28 10:42:00 Test Item Value Reference Range Interpretation Comments MCHC (test code = MCHC) 33.5 32.0-36.0 [facility] CypressFyypkpdQSCSZKJUYJ3734-47-04 10:42:00 Test Item Value Reference Range Interpretation Comments RDW (test code = RDW) 14.6 11.5-14.5 [facility] CypressQaaeynoDPNGQHQDUG9588-77-20 10:42:00 Test Item Value Reference Range Interpretation Comments Platelet (test code = Platelet) 259 133-450 [facility] CypressVdjrizhGSCKJIBMJC4307-27-88 10:42:00 Test Item Value Reference Range Interpretation Comments MPV (test code = MPV) 8.6 7.4-10.4 [place] 747592-04-09 10:42:00 Test Item Value Reference Range Interpretation Comments Segs (test code = Segs) 55.2 45.0-75.0 [facility] CypressNzbkdiaCEIBODWSJL7071-76-67 10:42:00 Test Item Value Reference Range Interpretation Comments Lymphocytes (test code = Lymphocytes) 33.3 20.0-40.0 [facility] CypressQsnvgvmIFHXZYSZBK7650-32-33 10:42:00 Test Item Value Reference Range Interpretation Comments Monocytes (test code = Monocytes) 9.5 2.0-12.0 [facility] CypressUchqhovQMCXSQJAGR9133-83-19 10:42:00 Test Item Value Reference Range Interpretation Comments Eosinophils (test code = 1.5 See_Comment [A utomated message] The Eosinophils) system which ge nerated this result tra nsmitted reference range : <=4.0. The reference r abdifatah was not used to int erpret this result as normal/abnormal . [facility] CypressVcufhpvETXRQDBGSN1456-42-86 10:42:00 Test Item Value Reference Range Interpretation Comments Basophils (test code = 0.5 See_Comment [Aut omated message] The Basophils) system which ge nerated this result tra nsmitted reference range : <=1.0. The reference r abdifatah was not used to int erpret this result as normal/abnormal . [facility] CypressOsebtjeEVYDFKIQCF4931-70-78 10:42:00 Test Item Value Reference Range Interpretation Comments Neutrophils # (test code = Neutrophils 3.1 1.5-8.1 #) [facility] CypressKcxamfnTQWEPFSAXP5449-32-04 10:42:00 Test Item Value Reference Range Interpretation Comments Lymphocytes # (test code = Lymphocytes 1.9 1.0-5.5 #) [facility] CypressRqggtiyXQWCPUJJMV8887-11-09 10:42:00 Test Item Value Reference Range Interpretation Comments Monocytes # (test code 0.5 See_Comment [Aut omated message] The = Monocytes #) system which generated this result tra nsmitted reference range : <=0.8. The reference r abdifatah was not used to int erpret this result as normal/abnormal . [facility] CypressGbmramfXYNVOKJTUU1734-14-02 10:42:00 Test Item Value Reference Range Interpretation Comments Eosinophils # (test code 0.1 See_Comment [A utomated message] The = Eosinophils #) system whic h generated this result tra nsmitted reference range : <=0.5. The reference r abdifatah was not used to int erpret this result as normal/abnormal . [facility] CypressHbwwhbeAIRJPHNFIK3225-40-91 10:42:00 Test Item Value Reference Range Interpretation Comments WBC (test code = WBC) 5.7 3.7-10.4 [facility] CypressFuxieqyVAISHOBWQK9916-31-82 10:42:00 Test Item Value Reference Range Interpretation Comments RBC (test code = RBC) 3.90 4.20-5.40 [facility] CypressXbyajcuDPSHEULZXJ9458-00-99 10:42:00 Test Item Value Reference Range Interpretation Comments Hgb (test code = Hgb) 11.6 12.0-16.0 [facility] CypressOyssgprDXEFKOCRBO1304-15-74 10:42:00 Test Item Value Reference Range Interpretation Comments Hct (test code = Hct) 34.7 36.0-48.0 [facility] CypressMkzgtsnVBELITTZET9330-10-78 10:42:00 Test Item Value Reference Range Interpretation Comments MCV (test code = MCV) 89.1 80.0-98.0 [facility] CypressVyqbdsoAKXONLSNVH8040-44-84 10:42:00 Test Item Value Reference Range Interpretation Comments MCH (test code = MCH) 29.8 pg 27.0-31.0 [facility] CypressNsyqnrhEKVLEYRTDA5654-39-76 10:42:00 Test Item Value Reference Range Interpretation Comments MCHC (test code = MCHC) 33.5 32.0-36.0 [facility] CypressZfirdddWFLAQPAUIW7822-70-42 10:42:00 Test Item Value Reference Range Interpretation Comments RDW (test code = RDW) 14.6 11.5-14.5 [facility] CypressRytrqbuDAMJQPRYGA7331-63-77 10:42:00 Test Item Value Reference Range Interpretation Comments Platelet (test code = Platelet) 259 133-450 [facility] CypressEsijhdsTRBXFOJHYR3556-20-45 10:42:00 Test Item Value Reference Range Interpretation Comments MPV (test code = MPV) 8.6 7.4-10.4 [facility] CypressOshbjkdOEALCHQBIA4683-89-61 10:42:00 Test Item Value Reference Range Interpretation Comments Segs (test code = Segs) 55.2 45.0-75.0 [facility] CypressYyikbuaRSAEHAAYHX4962-38-50 10:42:00 Test Item Value Reference Range Interpretation Comments Lymphocytes (test code = Lymphocytes) 33.3 20.0-40.0 [facility] CypressNvbplujJGLDTKPYGR5291-34-89 10:42:00 Test Item Value Reference Range Interpretation Comments Monocytes (test code = Monocytes) 9.5 2.0-12.0 [facility] CypressNojevdkZZSHSRPCZE3035-57-51 10:42:00 Test Item Value Reference Range Interpretation Comments Eosinophils (test code = 1.5 See_Comment [A utomated message] The Eosinophils) system which ge nerated this result tra nsmitted reference range : <=4.0. The reference r abdifatah was not used to int erpret this result as normal/abnormal . [facility] CypressWwesdqlGHONIMFSML8528-05-27 10:42:00 Test Item Value Reference Range Interpretation Comments Basophils (test code = 0.5 See_Comment [Aut omated message] The Basophils) system which ge nerated this result tra nsmitted reference range : <=1.0. The reference r abdifatah was not used to int erpret this result as normal/abnormal . [facility] CypressPsejctbBXAPFRWOJY4273-62-73 10:42:00 Test Item Value Reference Range Interpretation Comments Neutrophils # (test code = Neutrophils 3.1 1.5-8.1 #) [facility] CypressVaahmwsZOOBELNLEM6523-90-10 10:42:00 Test Item Value Reference Range Interpretation Comments Lymphocytes # (test code = Lymphocytes 1.9 1.0-5.5 #) [facility] CypressVidgbedOQOHYZPGAO4496-47-19 10:42:00 Test Item Value Reference Range Interpretation Comments Monocytes # (test code 0.5 See_Comment [Aut omated message] The = Monocytes #) system which generated this result tra nsmitted reference range : <=0.8. The reference r abdifatah was not used to int erpret this result as normal/abnormal . [facility] CypressAcmvctbDLBRBJWUKU3135-16-69 10:42:00 Test Item Value Reference Range Interpretation Comments Eosinophils # (test code 0.1 See_Comment [A utomated message] The = Eosinophils #) system whic h generated this result tra nsmitted reference range : <=0.5. The reference r abdifatah was not used to int erpret this result as normal/abnormal . [facility] CypressKtpbjwwKQLLQIIZEY2174-49-37 10:42:00 Test Item Value Reference Range Interpretation Comments WBC (test code = WBC) 5.7 3.7-10.4 [facility] CypressKnkvpyfFAWOUIYLEI0525-87-43 10:42:00 Test Item Value Reference Range Interpretation Comments RBC (test code = RBC) 3.90 4.20-5.40 [facility] CypressJtfhsidFVWLPTMIUO1348-92-75 10:42:00 Test Item Value Reference Range Interpretation Comments Hgb (test code = Hgb) 11.6 12.0-16.0 [facility] CypressIlhjhjkMIGIXSYNVL5857-69-02 10:42:00 Test Item Value Reference Range Interpretation Comments Hct (test code = Hct) 34.7 36.0-48.0 [facility] CypressNamrmsbWDHAHEMWFS4051-77-70 10:42:00 Test Item Value Reference Range Interpretation Comments MCV (test code = MCV) 89.1 80.0-98.0 [facility] CypressOmwqmtkEXRCVHPAPB3010-44-38 10:42:00 Test Item Value Reference Range Interpretation Comments MCH (test code = MCH) 29.8 pg 27.0-31.0 [facility] CypressPfhrjwsJYQRMEVFUD8237-89-69 10:42:00 Test Item Value Reference Range Interpretation Comments MCHC (test code = MCHC) 33.5 32.0-36.0 [facility] CypressUfgndvvYBKETHUVRX0413-29-55 10:42:00 Test Item Value Reference Range Interpretation Comments RDW (test code = RDW) 14.6 11.5-14.5 [facility] CypressPisywirFSGMGUZOPV4071-21-95 10:42:00 Test Item Value Reference Range Interpretation Comments Platelet (test code = Platelet) 259 133-450 [facility] CypressPposgwzIGAYRYFGZX4473-60-66 10:42:00 Test Item Value Reference Range Interpretation Comments MPV (test code = MPV) 8.6 7.4-10.4 [facility] CypressKpzknwkSDZTEYZIBN9244-71-27 10:42:00 Test Item Value Reference Range Interpretation Comments Segs (test code = Segs) 55.2 45.0-75.0 [facility] CypressLtddqcjGYXPDILLKR1923-44-58 10:42:00 Test Item Value Reference Range Interpretation Comments Lymphocytes (test code = Lymphocytes) 33.3 20.0-40.0 [facility] CypressQwvjwaqQRTOTQXOPE6362-91-23 10:42:00 Test Item Value Reference Range Interpretation Comments Monocytes (test code = Monocytes) 9.5 2.0-12.0 [facility] CypressNqmrdrzKZXDDEBGDE2334-54-58 10:42:00 Test Item Value Reference Range Interpretation Comments Eosinophils (test code = 1.5 See_Comment [A utomated message] The Eosinophils) system which ge nerated this result tra nsmitted reference range : <=4.0. The reference r abdifatah was not used to int erpret this result as normal/abnormal . [facility] CypressIarefguBFRCUPMMWC0900-57-68 10:42:00 Test Item Value Reference Range Interpretation Comments Basophils (test code = 0.5 See_Comment [Aut omated message] The Basophils) system which ge nerated this result tra nsmitted reference range : <=1.0. The reference r abdifatah was not used to int erpret this result as normal/abnormal . [facility] CypressSviczksEOCJSPZBDB5141-27-10 10:42:00 Test Item Value Reference Range Interpretation Comments Neutrophils # (test code = Neutrophils 3.1 1.5-8.1 #) [facility] CypressGmpeioaWTPHYPNITW6211-43-32 10:42:00 Test Item Value Reference Range Interpretation Comments Lymphocytes # (test code = Lymphocytes 1.9 1.0-5.5 #) [facility] CypressLymnyhzPHVYXFJEUP4956-23-84 10:42:00 Test Item Value Reference Range Interpretation Comments Monocytes # (test code 0.5 See_Comment [Aut omated message] The = Monocytes #) system which generated this result tra nsmitted reference range : <=0.8. The reference r abdifatah was not used to int erpret this result as normal/abnormal . [facility] CypressGstugccTWDIBAVZND2915-03-17 10:42:00 Test Item Value Reference Range Interpretation Comments Eosinophils # (test code 0.1 See_Comment [A utomated message] The = Eosinophils #) system whic h generated this result tra nsmitted reference range : <=0.5. The reference r abdifatah was not used to int erpret this result as normal/abnormal . [facility] CypressJgpnofrFTNFBCUCGX9153-38-20 10:42:00 Test Item Value Reference Range Interpretation Comments WBC (test code = WBC) 5.7 3.7-10.4 [facility] CypressTcvmriyQXHEYGTXKC7366-86-32 10:42:00 Test Item Value Reference Range Interpretation Comments RBC (test code = RBC) 3.90 4.20-5.40 [facility] CypressBndpshkUCYVICBJFC4976-34-19 10:42:00 Test Item Value Reference Range Interpretation Comments Hgb (test code = Hgb) 11.6 12.0-16.0 [place] 747592-04-09 10:42:00 Test Item Value Reference Range Interpretation Comments Hct (test code = Hct) 34.7 36.0-48.0 [facility] CypressTyadownWHVAFCSOEO0469-22-97 10:42:00 Test Item Value Reference Range Interpretation Comments MCV (test code = MCV) 89.1 80.0-98.0 [facility] CypressDqwaabhBQNLSNEKNS7931-80-83 10:42:00 Test Item Value Reference Range Interpretation Comments MCH (test code = MCH) 29.8 pg 27.0-31.0 [facility] CypressBqsclleDCQXBSBNIA6437-70-46 10:42:00 Test Item Value Reference Range Interpretation Comments MCHC (test code = MCHC) 33.5 32.0-36.0 [facility] CypressUihgsuhQJPIDCVAEM6149-25-26 10:42:00 Test Item Value Reference Range Interpretation Comments RDW (test code = RDW) 14.6 11.5-14.5 [facility] CypressEcyzfzpFSFQGGTKCH7930-75-34 10:42:00 Test Item Value Reference Range Interpretation Comments Platelet (test code = Platelet) 259 133-450 [facility] CypressKznmltvAEDPFZRAWJ1913-26-96 10:42:00 Test Item Value Reference Range Interpretation Comments MPV (test code = MPV) 8.6 7.4-10.4 [facility] CypressGdimziwEAXXXUIIGC3665-31-22 10:42:00 Test Item Value Reference Range Interpretation Comments Segs (test code = Segs) 55.2 45.0-75.0 [facility] CypressMnlfmgsKQCSZLASVQ7705-57-47 10:42:00 Test Item Value Reference Range Interpretation Comments Lymphocytes (test code = Lymphocytes) 33.3 20.0-40.0 [facility] CypressDjtboywWHVOXHKDWZ5466-85-78 10:42:00 Test Item Value Reference Range Interpretation Comments Monocytes (test code = Monocytes) 9.5 2.0-12.0 [facility] CypressBzqepsvQSYGCMZMOQ6087-63-89 10:42:00 Test Item Value Reference Range Interpretation Comments Eosinophils (test code = Eosinophils) 1.5 <=4.0 [facility] CypressZhulskzZQHPISHGUT6890-45-31 10:42:00 Test Item Value Reference Range Interpretation Comments Basophils (test code = Basophils) 0.5 <=1.0 [facility] CypressNmbbpypKMQYMAYMGZ5584-04-99 10:42:00 Test Item Value Reference Range Interpretation Comments Neutrophils # (test code = Neutrophils 3.1 1.5-8.1 #) [facility] CypressKkcfcpcGFRGXJTCVW6603-54-46 10:42:00 Test Item Value Reference Range Interpretation Comments Lymphocytes # (test code = Lymphocytes 1.9 1.0-5.5 #) [facility] CypressYdrmzzzCLRFRVORWC0417-69-69 10:42:00 Test Item Value Reference Range Interpretation Comments Monocytes # (test code = Monocytes #) 0.5 <=0.8 [facility] CypressGgqivkkHSFBAVGFCP3735-39-85 10:42:00 Test Item Value Reference Range Interpretation Comments Eosinophils # (test code = Eosinophils 0.1 <=0.5 #) [facility] CypressJdgbahmLPHWHVDKOJ6130-48-24 10:42:00 Test Item Value Reference Range Interpretation Comments WBC (test code = WBC) 5.7 3.7-10.4 [facility] CypressFwsjsgqZTUAWOLFSS0143-52-77 10:42:00 Test Item Value Reference Range Interpretation Comments RBC (test code = RBC) 3.90 4.20-5.40 [facility] CypressBcexgpfGOPYNOAPOY9777-24-99 10:42:00 Test Item Value Reference Range Interpretation Comments Hgb (test code = Hgb) 11.6 12.0-16.0 [facility] CypressQfikypiOSSSHKNQBD7118-64-72 10:42:00 Test Item Value Reference Range Interpretation Comments Hct (test code = Hct) 34.7 36.0-48.0 [facility] CypressMfeubozDDRTVGDRER4517-89-54 10:42:00 Test Item Value Reference Range Interpretation Comments MCV (test code = MCV) 89.1 80.0-98.0 [facility] CypressOfrowkfCUUJWTQETD9781-70-24 10:42:00 Test Item Value Reference Range Interpretation Comments MCH (test code = MCH) 29.8 pg 27.0-31.0 [facility] CypressDiogrxaKKKKHBOZZG6782-33-53 10:42:00 Test Item Value Reference Range Interpretation Comments MCHC (test code = MCHC) 33.5 32.0-36.0 [facility] CypressGbbwirxXXUDSAHDTZ4082-77-36 10:42:00 Test Item Value Reference Range Interpretation Comments RDW (test code = RDW) 14.6 11.5-14.5 [facility] CypressJmokxzqTLRAGBVFTU2311-54-23 10:42:00 Test Item Value Reference Range Interpretation Comments Platelet (test code = Platelet) 259 133-450 [facility] CypressTexglrlFBFDDDLMXA1287-51-16 10:42:00 Test Item Value Reference Range Interpretation Comments MPV (test code = MPV) 8.6 7.4-10.4 [facility] CypressRaokyynPKKTTNMXUX1359-47-76 10:42:00 Test Item Value Reference Range Interpretation Comments Segs (test code = Segs) 55.2 45.0-75.0 [facility] CypressHmkvfznKIJQSUYYZZ2795-68-94 10:42:00 Test Item Value Reference Range Interpretation Comments Lymphocytes (test code = Lymphocytes) 33.3 20.0-40.0 [facility] CypressQepcifhAJNNPPAOTO1685-38-29 10:42:00 Test Item Value Reference Range Interpretation Comments Monocytes (test code = Monocytes) 9.5 2.0-12.0 [facility] CypressGqtsvhxCVYBBIAUGV6258-65-61 10:42:00 Test Item Value Reference Range Interpretation Comments Eosinophils (test code = Eosinophils) 1.5 <=4.0 [facility] CypressDnpqsteMMMUYHMFWD1491-05-28 10:42:00 Test Item Value Reference Range Interpretation Comments Basophils (test code = Basophils) 0.5 <=1.0 [facility] CypressMwjerkhURYKHIRWFR8650-69-29 10:42:00 Test Item Value Reference Range Interpretation Comments Neutrophils # (test code = Neutrophils 3.1 1.5-8.1 #) [facility] CypressEdxpdlfJCOONTXTBL6646-70-16 10:42:00 Test Item Value Reference Range Interpretation Comments Lymphocytes # (test code = Lymphocytes 1.9 1.0-5.5 #) [facility] CypressChmnptsSXBWQFWNHX1851-90-13 10:42:00 Test Item Value Reference Range Interpretation Comments Monocytes # (test code = Monocytes #) 0.5 <=0.8 [facility] CypressLesenfuHRAAXPDURC1765-58-14 10:42:00 Test Item Value Reference Range Interpretation Comments Eosinophils # (test code = Eosinophils 0.1 <=0.5 #) [facility] CypressGcdqcncASDLHQPVNF2842-42-42 10:42:00 Test Item Value Reference Range Interpretation Comments WBC (test code = WBC) 5.7 3.7-10.4 [place]7592-04-09 10:42:00 Test Item Value Reference Range Interpretation Comments RBC (test code = RBC) 3.90 4.20-5.40 [facility] CypressGbeytkgDILTAPPZSX6699-35-75 10:42:00 Test Item Value Reference Range Interpretation Comments Hgb (test code = Hgb) 11.6 12.0-16.0 [place] 747592-04-09 10:42:00 Test Item Value Reference Range Interpretation Comments Hct (test code = Hct) 34.7 36.0-48.0 [place] 747592-04-09 10:42:00 Test Item Value Reference Range Interpretation Comments MCV (test code = MCV) 89.1 80.0-98.0 [place] 747592-04-09 10:42:00 Test Item Value Reference Range Interpretation Comments MCH (test code = MCH) 29.8 pg 27.0-31.0 [place] 747592-04-09 10:42:00 Test Item Value Reference Range Interpretation Comments MCHC (test code = MCHC) 33.5 32.0-36.0 [place] 747592-04-09 10:42:00 Test Item Value Reference Range Interpretation Comments RDW (test code = RDW) 14.6 11.5-14.5 [place] 747592-04-09 10:42:00 Test Item Value Reference Range Interpretation Comments Platelet (test code = Platelet) 259 133-450 [facility] CypressAymztoyBNUBTUQNZD1411-42-10 10:42:00 Test Item Value Reference Range Interpretation Comments MPV (test code = MPV) 8.6 7.4-10.4 [facility] CypressKppuffiCTCFTYSTKK4218-60-46 10:42:00 Test Item Value Reference Range Interpretation Comments Segs (test code = Segs) 55.2 45.0-75.0 [facility] CypressGdkwctsJVBKLVWIYP5980-47-86 10:42:00 Test Item Value Reference Range Interpretation Comments Lymphocytes (test code = Lymphocytes) 33.3 20.0-40.0 [place] 747592-04-09 10:42:00 Test Item Value Reference Range Interpretation Comments Monocytes (test code = Monocytes) 9.5 2.0-12.0 [place] [address]-04-09 10:42:00 Test Item Value Reference Range Interpretation Comments Eosinophils (test code = 1.5 See_Comment [A utomated message] The Eosinophils) system which ge nerated this result tra nsmitted reference range : <=4.0. The reference r abdifatah was not used to int erpret this result as normal/abnormal . [facility] CypressJznupolTRFWIWVKBC7508-37-35 10:42:00 Test Item Value Reference Range Interpretation Comments Basophils (test code = 0.5 See_Comment [Aut omated message] The Basophils) system which ge nerated this result tra nsmitted reference range : <=1.0. The reference r abdifatah was not used to int erpret this result as normal/abnormal . [facility] CypressPsotaykPGTOYBJDDL8221-45-15 10:42:00 Test Item Value Reference Range Interpretation Comments Neutrophils # (test code = Neutrophils 3.1 1.5-8.1 #) [facility] CypressLhqwezjMNYJWCOXIF8389-68-37 10:42:00 Test Item Value Reference Range Interpretation Comments Lymphocytes # (test code = Lymphocytes 1.9 1.0-5.5 #) [facility] CypressIxotpwrHGFBZOQJHC7562-50-29 10:42:00 Test Item Value Reference Range Interpretation Comments Monocytes # (test code 0.5 See_Comment [Aut omated message] The = Monocytes #) system which generated this result tra nsmitted reference range : <=0.8. The reference r abdifatah was not used to int erpret this result as normal/abnormal . [facility] CypressTpniqhbMGYEOSVBPJ1158-68-18 10:42:00 Test Item Value Reference Range Interpretation Comments Eosinophils # (test code 0.1 See_Comment [A utomated message] The = Eosinophils #) system whic h generated this result tra nsmitted reference range : <=0.5. The reference r abdifatah was not used to int erpret this result as normal/abnormal . [facility] CypressLgmtvidZFAZVNXQZW9461-56-69 10:42:00 Test Item Value Reference Range Interpretation Comments WBC (test code = WBC) 5.7 3.7-10.4 [facility] CypressQybdcqkBWJCIMVOPC4264-41-57 10:42:00 Test Item Value Reference Range Interpretation Comments RBC (test code = RBC) 3.90 4.20-5.40 [place] 747592-04-09 10:42:00 Test Item Value Reference Range Interpretation Comments Hgb (test code = Hgb) 11.6 12.0-16.0 [facility] CypressFjqvyebYWVBSOZJPN1722-13-23 10:42:00 Test Item Value Reference Range Interpretation Comments Hct (test code = Hct) 34.7 36.0-48.0 [place] 747592-04-09 10:42:00 Test Item Value Reference Range Interpretation Comments MCV (test code = MCV) 89.1 80.0-98.0 [facility] CypressQrbcyvhPLSLHACZMQ9037-02-98 10:42:00 Test Item Value Reference Range Interpretation Comments MCH (test code = MCH) 29.8 pg 27.0-31.0 [facility] CypressGlkzmhiNBDXLDBKCJ6729-35-49 10:42:00 Test Item Value Reference Range Interpretation Comments MCHC (test code = MCHC) 33.5 32.0-36.0 [facility] CypressOoykcpkRPNXQNREPK1445-31-80 10:42:00 Test Item Value Reference Range Interpretation Comments RDW (test code = RDW) 14.6 11.5-14.5 [facility] CypressHvzdrokLMDCXNMVZC6633-65-25 10:42:00 Test Item Value Reference Range Interpretation Comments Platelet (test code = Platelet) 259 133-450 [facility] CypressIqyidluDCKDGWSMMB5338-01-53 10:42:00 Test Item Value Reference Range Interpretation Comments MPV (test code = MPV) 8.6 7.4-10.4 [facility] CypressCafgstaWHOGUSFCGA0941-11-23 10:42:00 Test Item Value Reference Range Interpretation Comments Segs (test code = Segs) 55.2 45.0-75.0 [facility] CypressEsgkiekBDSTDVPWJU7402-46-38 10:42:00 Test Item Value Reference Range Interpretation Comments Lymphocytes (test code = Lymphocytes) 33.3 20.0-40.0 [facility] CypressWsjrdfwQKWDFBMYHA4528-13-83 10:42:00 Test Item Value Reference Range Interpretation Comments Monocytes (test code = Monocytes) 9.5 2.0-12.0 [facility] CypressEcranmuDYKIMODQXY7945-77-30 10:42:00 Test Item Value Reference Range Interpretation Comments Eosinophils (test code = Eosinophils) 1.5 <=4.0 [facility] CypressYrmuhsoVYNUGYTIOQ1395-49-03 10:42:00 Test Item Value Reference Range Interpretation Comments Basophils (test code = Basophils) 0.5 <=1.0 [facility] CypressJfhkntcMBDRFTUUQJ5968-70-93 10:42:00 Test Item Value Reference Range Interpretation Comments Neutrophils # (test code = Neutrophils 3.1 1.5-8.1 #) [facility] CypressAirocjlOXBNFYABAN3913-54-58 10:42:00 Test Item Value Reference Range Interpretation Comments Lymphocytes # (test code = Lymphocytes 1.9 1.0-5.5 #) [place] 747592-04-09 10:42:00 Test Item Value Reference Range Interpretation Comments Monocytes # (test code = Monocytes #) 0.5 <=0.8 [place] 747592-04-09 10:42:00 Test Item Value Reference Range Interpretation Comments Eosinophils # (test code = Eosinophils 0.1 <=0.5 #) [facility] CypressKxhpkjbJBWKHPCLDF6082-10-61 10:42:00 Test Item Value Reference Range Interpretation Comments WBC (test code = WBC) 5.7 3.7-10.4 [facility] CypressSepocueGCJEVQNRIK4745-24-78 10:42:00 Test Item Value Reference Range Interpretation Comments RBC (test code = RBC) 3.90 4.20-5.40 [place] 747592-04-09 10:42:00 Test Item Value Reference Range Interpretation Comments Hgb (test code = Hgb) 11.6 12.0-16.0 [place] 747592-04-09 10:42:00 Test Item Value Reference Range Interpretation Comments Hct (test code = Hct) 34.7 36.0-48.0 [facility] CypressLtcigixBYOWCKZVFO1855-43-20 10:42:00 Test Item Value Reference Range Interpretation Comments MCV (test code = MCV) 89.1 80.0-98.0 [place] 747592-04-09 10:42:00 Test Item Value Reference Range Interpretation Comments MCH (test code = MCH) 29.8 pg 27.0-31.0 [place] 747592-04-09 10:42:00 Test Item Value Reference Range Interpretation Comments MCHC (test code = MCHC) 33.5 32.0-36.0 [facility] CypressMbsaawcHJWCZYYZLA5038-84-38 10:42:00 Test Item Value Reference Range Interpretation Comments RDW (test code = RDW) 14.6 11.5-14.5 [place] [address]-04-09 10:42:00 Test Item Value Reference Range Interpretation Comments Platelet (test code = Platelet) 259 133-450 [facility] CypressWqxsyfhCYHSOZQZEX2349-70-49 10:42:00 Test Item Value Reference Range Interpretation Comments MPV (test code = MPV) 8.6 7.4-10.4 [place] 747592-04-09 10:42:00 Test Item Value Reference Range Interpretation Comments Segs (test code = Segs) 55.2 45.0-75.0 [place] 747592-04-09 10:42:00 Test Item Value Reference Range Interpretation Comments Lymphocytes (test code = Lymphocytes) 33.3 20.0-40.0 [place] 747592-04-09 10:42:00 Test Item Value Reference Range Interpretation Comments Monocytes (test code = Monocytes) 9.5 2.0-12.0 [place] 747592-04-09 10:42:00 Test Item Value Reference Range Interpretation Comments Eosinophils (test code = Eosinophils) 1.5 <=4.0 [facility] CypressSdcyjckOZRCKPYTMA2769-52-06 10:42:00 Test Item Value Reference Range Interpretation Comments Basophils (test code = Basophils) 0.5 <=1.0 [facility] CypressOqltpxxDICJDPVRTX2953-23-23 10:42:00 Test Item Value Reference Range Interpretation Comments Neutrophils # (test code = Neutrophils 3.1 1.5-8.1 #) [facility] CypressFxbgjjoUHRPXACOKO5523-90-27 10:42:00 Test Item Value Reference Range Interpretation Comments Lymphocytes # (test code = Lymphocytes 1.9 1.0-5.5 #) [facility] CypressBwhbxcvBQHEFGASFV7045-97-63 10:42:00 Test Item Value Reference Range Interpretation Comments Monocytes # (test code = Monocytes #) 0.5 <=0.8 [facility] CypressWrptcxsCDRWKRWZEW0320-22-93 10:42:00 Test Item Value Reference Range Interpretation Comments Eosinophils # (test code = Eosinophils 0.1 <=0.5 #) [facility] CypressBdplaltRRZZFKHIOP8297-19-20 10:42:00 Test Item Value Reference Range Interpretation Comments WBC (test code = WBC) 5.7 3.7-10.4 [place] 747592-04-09 10:42:00 Test Item Value Reference Range Interpretation Comments RBC (test code = RBC) 3.90 4.20-5.40 [place] 747592-04-09 10:42:00 Test Item Value Reference Range Interpretation Comments Hgb (test code = Hgb) 11.6 12.0-16.0 [place] 747592-04-09 10:42:00 Test Item Value Reference Range Interpretation Comments Hct (test code = Hct) 34.7 36.0-48.0 [facility] CypressOqamjyxVEGQSNGEED8165-85-37 10:42:00 Test Item Value Reference Range Interpretation Comments MCV (test code = MCV) 89.1 80.0-98.0 [place] 747592-04-09 10:42:00 Test Item Value Reference Range Interpretation Comments MCH (test code = MCH) 29.8 pg 27.0-31.0 [facility] CypressJjojftiXBNHBDVTAC2179-55-63 10:42:00 Test Item Value Reference Range Interpretation Comments MCHC (test code = MCHC) 33.5 32.0-36.0 [place] 747592-04-09 10:42:00 Test Item Value Reference Range Interpretation Comments RDW (test code = RDW) 14.6 11.5-14.5 [facility] CypressWiigihoCNYGRFNLBW9389-59-90 10:42:00 Test Item Value Reference Range Interpretation Comments Platelet (test code = Platelet) 259 133-450 [facility] CypressWrqimdmDYOMGDTXXO7021-07-99 10:42:00 Test Item Value Reference Range Interpretation Comments MPV (test code = MPV) 8.6 7.4-10.4 [place] 747592-04-09 10:42:00 Test Item Value Reference Range Interpretation Comments Segs (test code = Segs) 55.2 45.0-75.0 [facility] CypressYinviuwCKOJCQZPZL0975-80-12 10:42:00 Test Item Value Reference Range Interpretation Comments Lymphocytes (test code = Lymphocytes) 33.3 20.0-40.0 [place] 747592-04-09 10:42:00 Test Item Value Reference Range Interpretation Comments Monocytes (test code = Monocytes) 9.5 2.0-12.0 [place] 747592-04-09 10:42:00 Test Item Value Reference Range Interpretation Comments Eosinophils (test code = 1.5 See_Comment [A utomated message] The Eosinophils) system which ge nerated this result tra nsmitted reference range : <=4.0. The reference r abdifatah was not used to int erpret this result as normal/abnormal . [facility] CypressJqtqpfiJGNZROGJIT9451-76-03 10:42:00 Test Item Value Reference Range Interpretation Comments Basophils (test code = 0.5 See_Comment [Aut omated message] The Basophils) system which ge nerated this result tra nsmitted reference range : <=1.0. The reference r abdifatah was not used to int erpret this result as normal/abnormal . [facility] CypressEspuhgpGTSTOIZRJK8516-96-39 10:42:00 Test Item Value Reference Range Interpretation Comments Neutrophils # (test code = Neutrophils 3.1 1.5-8.1 #) [facility] CypressZwpueksTFCGFRZPXE2781-68-10 10:42:00 Test Item Value Reference Range Interpretation Comments Lymphocytes # (test code = Lymphocytes 1.9 1.0-5.5 #) [facility] CypressMqcotyfYDPWXSSTOY5596-03-59 10:42:00 Test Item Value Reference Range Interpretation Comments Monocytes # (test code 0.5 See_Comment [Aut omated message] The = Monocytes #) system which generated this result tra nsmitted reference range : <=0.8. The reference r abdifatah was not used to int erpret this result as normal/abnormal . [facility] CypressRvwkpdmQKKGZCIYVT1938-48-37 10:42:00 Test Item Value Reference Range Interpretation Comments Eosinophils # (test code 0.1 See_Comment [A utomated message] The = Eosinophils #) system whic h generated this result tra nsmitted reference range : <=0.5. The reference r abdifatah was not used to int erpret this result as normal/abnormal . [facility] CypressIirvczbDRDOMGKLQI0684-84-86 10:42:00 Test Item Value Reference Range Interpretation Comments WBC (test code = WBC) 5.7 3.7-10.4 [facility] CypressWgzsbhpENWKSXWWPX4401-11-97 10:42:00 Test Item Value Reference Range Interpretation Comments RBC (test code = RBC) 3.90 4.20-5.40 [place] 747592-04-09 10:42:00 Test Item Value Reference Range Interpretation Comments Hgb (test code = Hgb) 11.6 12.0-16.0 [place] 747592-04-09 10:42:00 Test Item Value Reference Range Interpretation Comments Hct (test code = Hct) 34.7 36.0-48.0 [place] [address]-04-09 10:42:00 Test Item Value Reference Range Interpretation Comments MCV (test code = MCV) 89.1 80.0-98.0 [place] 747592-04-09 10:42:00 Test Item Value Reference Range Interpretation Comments MCH (test code = MCH) 29.8 pg 27.0-31.0 [facility] CypressLnoicujWMFGWATDPI5578-10-87 10:42:00 Test Item Value Reference Range Interpretation Comments MCHC (test code = MCHC) 33.5 32.0-36.0 [place] 747592-04-09 10:42:00 Test Item Value Reference Range Interpretation Comments RDW (test code = RDW) 14.6 11.5-14.5 [facility] CypressXignmepFNUVHSKRPB5519-56-24 10:42:00 Test Item Value Reference Range Interpretation Comments Platelet (test code = Platelet) 259 133-450 [facility] CypressSrzxsheQDUOQQAHRR4261-18-79 10:42:00 Test Item Value Reference Range Interpretation Comments MPV (test code = MPV) 8.6 7.4-10.4 [place] 747592-04-09 10:42:00 Test Item Value Reference Range Interpretation Comments Segs (test code = Segs) 55.2 45.0-75.0 [facility] CypressLzrtoxpFZUFDCBOCM9340-33-59 10:42:00 Test Item Value Reference Range Interpretation Comments Lymphocytes (test code = Lymphocytes) 33.3 20.0-40.0 [facility] CypressVrdsyxsYUAZSZCOER9483-22-66 10:42:00 Test Item Value Reference Range Interpretation Comments Monocytes (test code = Monocytes) 9.5 2.0-12.0 [facility] CypressKkqlefjYQFPDIQAKE6391-12-02 10:42:00 Test Item Value Reference Range Interpretation Comments Eosinophils (test code = 1.5 See_Comment [A utomated message] The Eosinophils) system which ge nerated this result tra nsmitted reference range : <=4.0. The reference r abdifatah was not used to int erpret this result as normal/abnormal . [facility] CypressIwzrnvoYIVRLJGWZW2134-57-24 10:42:00 Test Item Value Reference Range Interpretation Comments Basophils (test code = 0.5 See_Comment [Aut omated message] The Basophils) system which ge nerated this result tra nsmitted reference range : <=1.0. The reference r abdifatah was not used to int erpret this result as normal/abnormal . [facility] CypressWjyqntuFMMLYZZPMD6819-89-70 10:42:00 Test Item Value Reference Range Interpretation Comments Neutrophils # (test code = Neutrophils 3.1 1.5-8.1 #) [facility] CypressGiqjviiEPZTZLUYEJ7505-96-96 10:42:00 Test Item Value Reference Range Interpretation Comments Lymphocytes # (test code = Lymphocytes 1.9 1.0-5.5 #) [facility] CypressDhyiphaDXVTOOIJYN9358-51-54 10:42:00 Test Item Value Reference Range Interpretation Comments Monocytes # (test code 0.5 See_Comment [Aut omated message] The = Monocytes #) system which generated this result tra nsmitted reference range : <=0.8. The reference r abdifatah was not used to int erpret this result as normal/abnormal . [facility] CypressLfsfthuCSGAWZKIDE5484-10-74 10:42:00 Test Item Value Reference Range Interpretation Comments Eosinophils # (test code 0.1 See_Comment [A utomated message] The = Eosinophils #) system whic h generated this result tra nsmitted reference range : <=0.5. The reference r abdifatah was not used to int erpret this result as normal/abnormal . [facility] CypressEovtvjnVHKHMQGXRE7459-22-55 10:42:00 Test Item Value Reference Range Interpretation Comments WBC (test code = WBC) 5.7 3.7-10.4 [facility] CypressJurfrikAEQGBEIIQT2063-57-48 10:42:00 Test Item Value Reference Range Interpretation Comments RBC (test code = RBC) 3.90 4.20-5.40 [facility] CypressWsysfouPHYQNBCCTV7967-89-73 10:42:00 Test Item Value Reference Range Interpretation Comments Hgb (test code = Hgb) 11.6 12.0-16.0 [place]7592-04-09 10:42:00 Test Item Value Reference Range Interpretation Comments Hct (test code = Hct) 34.7 36.0-48.0 [place] [address]-04-09 10:42:00 Test Item Value Reference Range Interpretation Comments MCV (test code = MCV) 89.1 80.0-98.0 [place]7592-04-09 10:42:00 Test Item Value Reference Range Interpretation Comments MCH (test code = MCH) 29.8 pg 27.0-31.0 [place] 747592-04-09 10:42:00 Test Item Value Reference Range Interpretation Comments MCHC (test code = MCHC) 33.5 32.0-36.0 [place] 747592-04-09 10:42:00 Test Item Value Reference Range Interpretation Comments RDW (test code = RDW) 14.6 11.5-14.5 [place]7592-04-09 10:42:00 Test Item Value Reference Range Interpretation Comments Platelet (test code = Platelet) 259 133-450 [facility] CypressShpleldJMIHETKNNA3448-21-51 10:42:00 Test Item Value Reference Range Interpretation Comments MPV (test code = MPV) 8.6 7.4-10.4 [place]7592-04-09 10:42:00 Test Item Value Reference Range Interpretation Comments Segs (test code = Segs) 55.2 45.0-75.0 [place]7592-04-09 10:42:00 Test Item Value Reference Range Interpretation Comments Lymphocytes (test code = Lymphocytes) 33.3 20.0-40.0 [facility] CypressCzaoqguVCDIMCHPWR5555-40-07 10:42:00 Test Item Value Reference Range Interpretation Comments Monocytes (test code = Monocytes) 9.5 2.0-12.0 [facility] CypressUlgtyfvKZMHKLHCDA8571-40-59 10:42:00 Test Item Value Reference Range Interpretation Comments Eosinophils (test code = 1.5 See_Comment [A utomated message] The Eosinophils) system which ge nerated this result tra nsmitted reference range : <=4.0. The reference r abdifatah was not used to int erpret this result as normal/abnormal . [facility] CypressBnsqnvgLWJCQUMFTW3680-55-55 10:42:00 Test Item Value Reference Range Interpretation Comments Basophils (test code = 0.5 See_Comment [Aut omated message] The Basophils) system which ge nerated this result tra nsmitted reference range : <=1.0. The reference r abdifatah was not used to int erpret this result as normal/abnormal . [facility] CypressNjiwuzmRSHVNHUAWD6009-42-86 10:42:00 Test Item Value Reference Range Interpretation Comments Neutrophils # (test code = Neutrophils 3.1 1.5-8.1 #) [facility] CypressYstljtbKXABIYDMWK2180-91-60 10:42:00 Test Item Value Reference Range Interpretation Comments Lymphocytes # (test code = Lymphocytes 1.9 1.0-5.5 #) [facility] CypressGwrfgqwDSNIKGKORK8928-98-82 10:42:00 Test Item Value Reference Range Interpretation Comments Monocytes # (test code 0.5 See_Comment [Aut omated message] The = Monocytes #) system which generated this result tra nsmitted reference range : <=0.8. The reference r abdifatah was not used to int erpret this result as normal/abnormal . [facility] CypressGczahjaEEFISAAMEB1842-46-48 10:42:00 Test Item Value Reference Range Interpretation Comments Eosinophils # (test code 0.1 See_Comment [A utomated message] The = Eosinophils #) system whic h generated this result tra nsmitted reference range : <=0.5. The reference r abdifatah was not used to int erpret this result as normal/abnormal . [facility] [id number] 10:59:00 Test Item Value Reference Range Interpretation Comments Glucose Lvl (test code = Glucose Lvl) 96 70-99 [facility] [id number] 10:59:00 Test Item Value Reference Range Interpretation Comments BUN (test code = BUN) 16 7-22 [facility] [id number] 10:59:00 Test Item Value Reference Range Interpretation Comments Creatinine Lvl (test code = Creatinine 0.66 0.50-1.40 Lvl) [facility] [id number] 10:59:00 Test Item Value Reference Range Interpretation Comments Sodium Lvl (test code = Sodium Lvl) 141 135-145 [facility] [id number] 10:59:00 Test Item Value Reference Range Interpretation Comments Potassium Lvl (test code = Potassium 3.8 3.5-5.1 Lvl) [facility] [id number] 10:59:00 Test Item Value Reference Range Interpretation Comments Chloride Lvl (test code = Chloride Lvl) 109 95-109 [facility] [id number] 10:59:00 Test Item Value Reference Range Interpretation Comments CO2 (test code = CO2) 26 24-32 [facility] [id number] 10:59:00 Test Item Value Reference Range Interpretation Comments AGAP (test code = AGAP) 9.8 10.0-20.0 [facility] [id number] 10:59:00 Test Item Value Reference Range Interpretation Comments Calcium Lvl (test code = Calcium Lvl) 9.2 8.5-10.5 [facility]2022-04-08 10:59:00 Test Item Value Reference Range Interpretation Comments eGFR (test code = eGFR) 99 [facility] CypressArtctfjHEPXHCPTYX9490-13-46 10:59:00 Test Item Value Reference Range Interpretation Comments WBC (test code = WBC) 7.9 3.7-10.4 [facility] CypressPdavbzkWTDENJLFVF3391-09-55 10:59:00 Test Item Value Reference Range Interpretation Comments RBC (test code = RBC) 4.05 4.20-5.40 [facility] CypressYyabbquQWXEYGGUDS7726-63-35 10:59:00 Test Item Value Reference Range Interpretation Comments Hgb (test code = Hgb) 11.8 12.0-16.0 [place]7592-04-08 10:59:00 Test Item Value Reference Range Interpretation Comments Hct (test code = Hct) 35.9 36.0-48.0 [facility] CypressAiwlpotWZTMZAMMUN3696-57-75 10:59:00 Test Item Value Reference Range Interpretation Comments MCV (test code = MCV) 88.7 80.0-98.0 [facility] CypressIeeuxrlEDEFNNWVRZ3551-35-17 10:59:00 Test Item Value Reference Range Interpretation Comments MCH (test code = MCH) 29.2 pg 27.0-31.0 [facility] CypressFdgssmlBIEDNOHDMU1859-75-39 10:59:00 Test Item Value Reference Range Interpretation Comments MCHC (test code = MCHC) 32.9 32.0-36.0 [facility] CypressSvdyqnoYFXSMDGRIN8675-07-49 10:59:00 Test Item Value Reference Range Interpretation Comments RDW (test code = RDW) 14.8 11.5-14.5 [facility] CypressYhqaxzyBIHADNYBUJ9368-91-12 10:59:00 Test Item Value Reference Range Interpretation Comments Platelet (test code = Platelet) 280 133-450 [facility] CypressImamuauDVPJOUYLLI9438-79-43 10:59:00 Test Item Value Reference Range Interpretation Comments MPV (test code = MPV) 8.0 7.4-10.4 [facility] CypressBhcntcwHADFSQGPYW5953-24-83 10:59:00 Test Item Value Reference Range Interpretation Comments Segs (test code = Segs) 67.8 45.0-75.0 [facility] CypressYsejrslJPUMBTMWEZ1344-84-56 10:59:00 Test Item Value Reference Range Interpretation Comments Lymphocytes (test code = Lymphocytes) 22.8 20.0-40.0 [place] [address]-04-08 10:59:00 Test Item Value Reference Range Interpretation Comments Monocytes (test code = Monocytes) 8.8 2.0-12.0 [place] [address]-04-08 10:59:00 Test Item Value Reference Range Interpretation Comments Eosinophils (test code = Eosinophils) 0.4 <=4.0 [place] [address]-04-08 10:59:00 Test Item Value Reference Range Interpretation Comments Basophils (test code = Basophils) 0.2 <=1.0 [place] [address]-04-08 10:59:00 Test Item Value Reference Range Interpretation Comments Neutrophils # (test code = Neutrophils 5.3 1.5-8.1 #) [facility] CypressVsdnjfsABULGIUQCT9216-85-43 10:59:00 Test Item Value Reference Range Interpretation Comments Lymphocytes # (test code = Lymphocytes 1.8 1.0-5.5 #) [place] 747592-04-08 10:59:00 Test Item Value Reference Range Interpretation Comments Monocytes # (test code = Monocytes #) 0.7 <=0.8 [place] 663522-04-08 10:59:00 Test Item Value Reference Range Interpretation Comments Glucose Lvl (test code = Glucose Lvl) 96 70-99 [facility]2022-04-08 10:59:00 Test Item Value Reference Range Interpretation Comments BUN (test code = BUN) 16 7-22 [facility]2022-04-08 10:59:00 Test Item Value Reference Range Interpretation Comments Creatinine Lvl (test code = Creatinine 0.66 0.50-1.40 Lvl) [facility]2022-04-08 10:59:00 Test Item Value Reference Range Interpretation Comments Sodium Lvl (test code = Sodium Lvl) 141 135-145 [facility]2022-04-08 10:59:00 Test Item Value Reference Range Interpretation Comments Potassium Lvl (test code = Potassium 3.8 3.5-5.1 Lvl) [place] 663522-04-08 10:59:00 Test Item Value Reference Range Interpretation Comments Chloride Lvl (test code = Chloride Lvl) 109 95-109 [facility]2022-04-08 10:59:00 Test Item Value Reference Range Interpretation Comments CO2 (test code = CO2) 26 24-32 [facility] [id number] 10:59:00 Test Item Value Reference Range Interpretation Comments AGAP (test code = AGAP) 9.8 10.0-20.0 [facility]2022-04-08 10:59:00 Test Item Value Reference Range Interpretation Comments Calcium Lvl (test code = Calcium Lvl) 9.2 8.5-10.5 [facility] [id number] 10:59:00 Test Item Value Reference Range Interpretation Comments eGFR (test code = eGFR) 99 [facility] CypressPfchrskGVJDSKPHRX7706-75-13 10:59:00 Test Item Value Reference Range Interpretation Comments WBC (test code = WBC) 7.9 3.7-10.4 [facility] CypressYbgxeqtJVBOPDUAIV9842-19-73 10:59:00 Test Item Value Reference Range Interpretation Comments RBC (test code = RBC) 4.05 4.20-5.40 [facility] CypressRyvzahvCMXDKPRHYO1070-19-42 10:59:00 Test Item Value Reference Range Interpretation Comments Hgb (test code = Hgb) 11.8 12.0-16.0 [facility] CypressWvpdlkxDZWSNQRVGT7725-16-40 10:59:00 Test Item Value Reference Range Interpretation Comments Hct (test code = Hct) 35.9 36.0-48.0 [facility] CypressXhkzggdWLNOIZZGOH5407-97-96 10:59:00 Test Item Value Reference Range Interpretation Comments MCV (test code = MCV) 88.7 80.0-98.0 [place] 747592-04-08 10:59:00 Test Item Value Reference Range Interpretation Comments MCH (test code = MCH) 29.2 pg 27.0-31.0 [place] 747592-04-08 10:59:00 Test Item Value Reference Range Interpretation Comments MCHC (test code = MCHC) 32.9 32.0-36.0 [facility] CypressZxgmtjbHYXFNGCWTG7243-61-76 10:59:00 Test Item Value Reference Range Interpretation Comments RDW (test code = RDW) 14.8 11.5-14.5 [place] 747592-04-08 10:59:00 Test Item Value Reference Range Interpretation Comments Platelet (test code = Platelet) 280 133-450 [facility] CypressWdcyrpgRCHGYNPSES3786-52-26 10:59:00 Test Item Value Reference Range Interpretation Comments MPV (test code = MPV) 8.0 7.4-10.4 [facility] CypressGbpohmiBQTKQDQQIS5242-74-17 10:59:00 Test Item Value Reference Range Interpretation Comments Segs (test code = Segs) 67.8 45.0-75.0 [facility] CypressGqsikssCZAFQKYYSI9441-70-55 10:59:00 Test Item Value Reference Range Interpretation Comments Lymphocytes (test code = Lymphocytes) 22.8 20.0-40.0 [place] 747592-04-08 10:59:00 Test Item Value Reference Range Interpretation Comments Monocytes (test code = Monocytes) 8.8 2.0-12.0 [facility] CypressIdejhonGMVZMPDVDM8645-20-83 10:59:00 Test Item Value Reference Range Interpretation Comments Eosinophils (test code = 0.4 See_Comment [A utomated message] The Eosinophils) system which ge nerated this result tra nsmitted reference range : <=4.0. The reference r abdifatah was not used to int erpret this result as normal/abnormal . [facility] CypressHlreagwASNGXYRXES3756-63-12 10:59:00 Test Item Value Reference Range Interpretation Comments Basophils (test code = 0.2 See_Comment [Aut omated message] The Basophils) system which ge nerated this result tra nsmitted reference range : <=1.0. The reference r abdifatah was not used to int erpret this result as normal/abnormal . [facility] CypressAzhmtboMWWTEZUMQC7411-14-98 10:59:00 Test Item Value Reference Range Interpretation Comments Neutrophils # (test code = Neutrophils 5.3 1.5-8.1 #) [facility] CypressRsndjedFNZFSVMTIB2618-50-76 10:59:00 Test Item Value Reference Range Interpretation Comments Lymphocytes # (test code = Lymphocytes 1.8 1.0-5.5 #) [facility] CypressPgcqwpaGRPZOILVEN3643-65-42 10:59:00 Test Item Value Reference Range Interpretation Comments Monocytes # (test code 0.7 See_Comment [Aut omated message] The = Monocytes #) system which generated this result tra nsmitted reference range : <=0.8. The reference r abdifatah was not used to int erpret this result as normal/abnormal . [facility]2022-04-08 10:59:00 Test Item Value Reference Range Interpretation Comments Glucose Lvl (test code = Glucose Lvl) 96 70-99 [place] 663522-04-08 10:59:00 Test Item Value Reference Range Interpretation Comments BUN (test code = BUN) 16 7-22 [facility]2022-04-08 10:59:00 Test Item Value Reference Range Interpretation Comments Creatinine Lvl (test code = Creatinine 0.66 0.50-1.40 Lvl) [facility]2022-04-08 10:59:00 Test Item Value Reference Range Interpretation Comments Sodium Lvl (test code = Sodium Lvl) 141 135-145 [facility]2022-04-08 10:59:00 Test Item Value Reference Range Interpretation Comments Potassium Lvl (test code = Potassium 3.8 3.5-5.1 Lvl) [facility]2022-04-08 10:59:00 Test Item Value Reference Range Interpretation Comments Chloride Lvl (test code = Chloride Lvl) 109 95-109 [facility]2022-04-08 10:59:00 Test Item Value Reference Range Interpretation Comments CO2 (test code = CO2) 26 24-32 [facility]2022-04-08 10:59:00 Test Item Value Reference Range Interpretation Comments AGAP (test code = AGAP) 9.8 10.0-20.0 [facility]2022-04-08 10:59:00 Test Item Value Reference Range Interpretation Comments Calcium Lvl (test code = Calcium Lvl) 9.2 8.5-10.5 [facility]2022-04-08 10:59:00 Test Item Value Reference Range Interpretation Comments eGFR (test code = eGFR) 99 [facility] CypressCxmarqdLNWVZSVPJF3753-59-29 10:59:00 Test Item Value Reference Range Interpretation Comments WBC (test code = WBC) 7.9 3.7-10.4 [place] 747592-04-08 10:59:00 Test Item Value Reference Range Interpretation Comments RBC (test code = RBC) 4.05 4.20-5.40 [place] 747592-04-08 10:59:00 Test Item Value Reference Range Interpretation Comments Hgb (test code = Hgb) 11.8 12.0-16.0 [facility] CypressIgeidmqWLROFXUOFY2227-19-37 10:59:00 Test Item Value Reference Range Interpretation Comments Hct (test code = Hct) 35.9 36.0-48.0 [facility] CypressBiuenuiHVBJSYGWPN9178-59-89 10:59:00 Test Item Value Reference Range Interpretation Comments MCV (test code = MCV) 88.7 80.0-98.0 [facility] CypressFsatjinTBYYMEZDKW9326-42-26 10:59:00 Test Item Value Reference Range Interpretation Comments MCH (test code = MCH) 29.2 pg 27.0-31.0 [facility] CypressKdeyxxdCLRHJKEVMH9348-78-31 10:59:00 Test Item Value Reference Range Interpretation Comments MCHC (test code = MCHC) 32.9 32.0-36.0 [facility] CypressGdzrnxwVMYBUDSDIQ2698-04-82 10:59:00 Test Item Value Reference Range Interpretation Comments RDW (test code = RDW) 14.8 11.5-14.5 [facility] CypressIfnqiotFLNXWITGAU8449-14-80 10:59:00 Test Item Value Reference Range Interpretation Comments Platelet (test code = Platelet) 280 133-450 [facility] CypressJhmnjplPABJEERCOX5937-19-28 10:59:00 Test Item Value Reference Range Interpretation Comments MPV (test code = MPV) 8.0 7.4-10.4 [facility] CypressAebgqsgDNGYKRXKMP5814-95-85 10:59:00 Test Item Value Reference Range Interpretation Comments Segs (test code = Segs) 67.8 45.0-75.0 [place] 747592-04-08 10:59:00 Test Item Value Reference Range Interpretation Comments Lymphocytes (test code = Lymphocytes) 22.8 20.0-40.0 [place] [address]-04-08 10:59:00 Test Item Value Reference Range Interpretation Comments Monocytes (test code = Monocytes) 8.8 2.0-12.0 [place] [address]-04-08 10:59:00 Test Item Value Reference Range Interpretation Comments Eosinophils (test code = 0.4 See_Comment [A utomated message] The Eosinophils) system which ge nerated this result tra nsmitted reference range : <=4.0. The reference r abdifatah was not used to int erpret this result as normal/abnormal . [place] 747592-04-08 10:59:00 Test Item Value Reference Range Interpretation Comments Basophils (test code = 0.2 See_Comment [Aut omated message] The Basophils) system which ge nerated this result tra nsmitted reference range : <=1.0. The reference r abdifatah was not used to int erpret this result as normal/abnormal . [facility] CypressIrdgbytEYXPOKOGMJ4535-03-16 10:59:00 Test Item Value Reference Range Interpretation Comments Neutrophils # (test code = Neutrophils 5.3 1.5-8.1 #) [facility] CypressInsopdmOOEJLZAXTG3545-52-88 10:59:00 Test Item Value Reference Range Interpretation Comments Lymphocytes # (test code = Lymphocytes 1.8 1.0-5.5 #) [facility] CypressQmriinfSEFLYUWVEQ0750-12-36 10:59:00 Test Item Value Reference Range Interpretation Comments Monocytes # (test code 0.7 See_Comment [Aut omated message] The = Monocytes #) system which generated this result tra nsmitted reference range : <=0.8. The reference r abdifatah was not used to int erpret this result as normal/abnormal . [facility] [id number] 10:59:00 Test Item Value Reference Range Interpretation Comments Glucose Lvl (test code = Glucose Lvl) 96 70-99 [facility]F[employer] [id number] 10:59:00 Test Item Value Reference Range Interpretation Comments BUN (test code = BUN) 16 7-22 [facility] [id number] 10:59:00 Test Item Value Reference Range Interpretation Comments Creatinine Lvl (test code = Creatinine 0.66 0.50-1.40 Lvl) [facility]2022-04-08 10:59:00 Test Item Value Reference Range Interpretation Comments Sodium Lvl (test code = Sodium Lvl) 141 135-145 [facility] [id number] 10:59:00 Test Item Value Reference Range Interpretation Comments Potassium Lvl (test code = Potassium 3.8 3.5-5.1 Lvl) [facility]2022-04-08 10:59:00 Test Item Value Reference Range Interpretation Comments Chloride Lvl (test code = Chloride Lvl) 109 95-109 [facility] [id number] 10:59:00 Test Item Value Reference Range Interpretation Comments CO2 (test code = CO2) 26 24-32 [facility] [id number] 10:59:00 Test Item Value Reference Range Interpretation Comments AGAP (test code = AGAP) 9.8 10.0-20.0 [facility] [id number] 10:59:00 Test Item Value Reference Range Interpretation Comments Calcium Lvl (test code = Calcium Lvl) 9.2 8.5-10.5 [facility] [id number] 10:59:00 Test Item Value Reference Range Interpretation Comments eGFR (test code = eGFR) 99 [facility] CypressFnhgecoNAIJDCJOCD8262-77-25 10:59:00 Test Item Value Reference Range Interpretation Comments WBC (test code = WBC) 7.9 3.7-10.4 [facility] CypressGxeeucdPOKTOCWLIJ5572-00-78 10:59:00 Test Item Value Reference Range Interpretation Comments RBC (test code = RBC) 4.05 4.20-5.40 [facility] CypressEexuogxCHAYGLPAEL5089-18-39 10:59:00 Test Item Value Reference Range Interpretation Comments Hgb (test code = Hgb) 11.8 12.0-16.0 [facility] CypressOhuzqniKKNQFOFTWT0214-93-25 10:59:00 Test Item Value Reference Range Interpretation Comments Hct (test code = Hct) 35.9 36.0-48.0 [facility] CypressXffvhmeOTVKNCLKNX3265-89-67 10:59:00 Test Item Value Reference Range Interpretation Comments MCV (test code = MCV) 88.7 80.0-98.0 [facility] CypressVopaxzkFAJDWGVCJP8743-99-88 10:59:00 Test Item Value Reference Range Interpretation Comments MCH (test code = MCH) 29.2 pg 27.0-31.0 [facility] CypressWyppzbvEXGVJPWLUP3453-78-26 10:59:00 Test Item Value Reference Range Interpretation Comments MCHC (test code = MCHC) 32.9 32.0-36.0 [facility] CypressTdtldnnYBVXGISKEM6270-78-42 10:59:00 Test Item Value Reference Range Interpretation Comments RDW (test code = RDW) 14.8 11.5-14.5 [facility] CypressTcohpioOBQBOXKSBP9251-12-66 10:59:00 Test Item Value Reference Range Interpretation Comments Platelet (test code = Platelet) 280 133-450 [place] 747592-04-08 10:59:00 Test Item Value Reference Range Interpretation Comments MPV (test code = MPV) 8.0 7.4-10.4 [facility] CypressWawvnunTJXZNMLMCD1385-97-48 10:59:00 Test Item Value Reference Range Interpretation Comments Segs (test code = Segs) 67.8 45.0-75.0 [facility] CypressUkxbhxxEPRZCYEBTV0444-41-87 10:59:00 Test Item Value Reference Range Interpretation Comments Lymphocytes (test code = Lymphocytes) 22.8 20.0-40.0 [facility] CypressTvdpovnRJYCBFSQAY4911-31-42 10:59:00 Test Item Value Reference Range Interpretation Comments Monocytes (test code = Monocytes) 8.8 2.0-12.0 [facility] CypressVejmoxhJRVLYOLKNH0149-91-20 10:59:00 Test Item Value Reference Range Interpretation Comments Eosinophils (test code = 0.4 See_Comment [A utomated message] The Eosinophils) system which ge nerated this result tra nsmitted reference range : <=4.0. The reference r abdifatah was not used to int erpret this result as normal/abnormal . [facility] CypressRjdrqdzBHHCQSLNAN6465-05-08 10:59:00 Test Item Value Reference Range Interpretation Comments Basophils (test code = 0.2 See_Comment [Aut omated message] The Basophils) system which ge nerated this result tra nsmitted reference range : <=1.0. The reference r abdifatah was not used to int erpret this result as normal/abnormal . [facility] CypressGuambsqCOSNOCKVRT2130-99-11 10:59:00 Test Item Value Reference Range Interpretation Comments Neutrophils # (test code = Neutrophils 5.3 1.5-8.1 #) [facility] CypressMovbszwUUNURGEPRI5941-63-49 10:59:00 Test Item Value Reference Range Interpretation Comments Lymphocytes # (test code = Lymphocytes 1.8 1.0-5.5 #) [place] 747592-04-08 10:59:00 Test Item Value Reference Range Interpretation Comments Monocytes # (test code 0.7 See_Comment [Aut omated message] The = Monocytes #) system which generated this result tra nsmitted reference range : <=0.8. The reference r abdifatah was not used to int erpret this result as normal/abnormal . [facility]2022-04-08 10:59:00 Test Item Value Reference Range Interpretation Comments Glucose Lvl (test code = Glucose Lvl) 96 70-99 [facility]2022-04-08 10:59:00 Test Item Value Reference Range Interpretation Comments BUN (test code = BUN) 16 7-22 [facility]2022-04-08 10:59:00 Test Item Value Reference Range Interpretation Comments Creatinine Lvl (test code = Creatinine 0.66 0.50-1.40 Lvl) [facility]2022-04-08 10:59:00 Test Item Value Reference Range Interpretation Comments Sodium Lvl (test code = Sodium Lvl) 141 135-145 [facility]2022-04-08 10:59:00 Test Item Value Reference Range Interpretation Comments Potassium Lvl (test code = Potassium 3.8 3.5-5.1 Lvl) [facility]2022-04-08 10:59:00 Test Item Value Reference Range Interpretation Comments Chloride Lvl (test code = Chloride Lvl) 109 95-109 [facility]2022-04-08 10:59:00 Test Item Value Reference Range Interpretation Comments CO2 (test code = CO2) 26 24-32 [facility]2022-04-08 10:59:00 Test Item Value Reference Range Interpretation Comments AGAP (test code = AGAP) 9.8 10.0-20.0 [facility]2022-04-08 10:59:00 Test Item Value Reference Range Interpretation Comments Calcium Lvl (test code = Calcium Lvl) 9.2 8.5-10.5 [facility]2022-04-08 10:59:00 Test Item Value Reference Range Interpretation Comments eGFR (test code = eGFR) 99 [facility] CypressWwgudvlGYCDZRHANO8646-56-54 10:59:00 Test Item Value Reference Range Interpretation Comments WBC (test code = WBC) 7.9 3.7-10.4 [facility] CypressHdnabltMVJHOVKYUW5415-89-64 10:59:00 Test Item Value Reference Range Interpretation Comments RBC (test code = RBC) 4.05 4.20-5.40 [facility] CypressWqgbawuJAJNDJEBPE6880-67-62 10:59:00 Test Item Value Reference Range Interpretation Comments Hgb (test code = Hgb) 11.8 12.0-16.0 [place] [address]-04-08 10:59:00 Test Item Value Reference Range Interpretation Comments Hct (test code = Hct) 35.9 36.0-48.0 [facility] CypressYmdfewtTACKHJWSCG0552-80-89 10:59:00 Test Item Value Reference Range Interpretation Comments MCV (test code = MCV) 88.7 80.0-98.0 [facility] CypressDlyzqisMTFGEDUMFM5442-23-62 10:59:00 Test Item Value Reference Range Interpretation Comments MCH (test code = MCH) 29.2 pg 27.0-31.0 [facility] CypressPwnbxxiMGZHDLIGUL0106-60-70 10:59:00 Test Item Value Reference Range Interpretation Comments MCHC (test code = MCHC) 32.9 32.0-36.0 [facility] CypressAfwxljkFFFELTACJN9815-44-91 10:59:00 Test Item Value Reference Range Interpretation Comments RDW (test code = RDW) 14.8 11.5-14.5 [facility] CypressGijwqewCCYNDCJXKV3187-61-31 10:59:00 Test Item Value Reference Range Interpretation Comments Platelet (test code = Platelet) 280 133-450 [facility] CypressXdiyxquGDUPHBNTKW8097-00-42 10:59:00 Test Item Value Reference Range Interpretation Comments MPV (test code = MPV) 8.0 7.4-10.4 [facility] CypressKafpechGGEGEENRDO0384-15-87 10:59:00 Test Item Value Reference Range Interpretation Comments Segs (test code = Segs) 67.8 45.0-75.0 [facility] CypressTbnvxxmVUHMPGTGCY4989-11-02 10:59:00 Test Item Value Reference Range Interpretation Comments Lymphocytes (test code = Lymphocytes) 22.8 20.0-40.0 [facility] CypressJyluzmbGZPWBTGBUU5220-94-42 10:59:00 Test Item Value Reference Range Interpretation Comments Monocytes (test code = Monocytes) 8.8 2.0-12.0 [place] [address]-04-08 10:59:00 Test Item Value Reference Range Interpretation Comments Eosinophils (test code = 0.4 See_Comment [A utomated message] The Eosinophils) system which ge nerated this result tra nsmitted reference range : <=4.0. The reference r abdifatah was not used to int erpret this result as normal/abnormal . [facility] CypressPirpczuLOJSLYCLIN6355-71-99 10:59:00 Test Item Value Reference Range Interpretation Comments Basophils (test code = 0.2 See_Comment [Aut omated message] The Basophils) system which ge nerated this result tra nsmitted reference range : <=1.0. The reference r abdifatah was not used to int erpret this result as normal/abnormal . [facility] CypressEcdrgjhIZGYJLBHKA4500-30-80 10:59:00 Test Item Value Reference Range Interpretation Comments Neutrophils # (test code = Neutrophils 5.3 1.5-8.1 #) [facility] CypressEfwkiztUZDTSNBQLC3426-62-49 10:59:00 Test Item Value Reference Range Interpretation Comments Lymphocytes # (test code = Lymphocytes 1.8 1.0-5.5 #) [facility] CypressZgqsuzrKDFMDPAMXT7796-27-51 10:59:00 Test Item Value Reference Range Interpretation Comments Monocytes # (test code 0.7 See_Comment [Aut omated message] The = Monocytes #) system which generated this result tra nsmitted reference range : <=0.8. The reference r abdifatah was not used to int erpret this result as normal/abnormal . [facility] [id number] 10:59:00 Test Item Value Reference Range Interpretation Comments Glucose Lvl (test code = Glucose Lvl) 96 70-99 [facility] [id number] 10:59:00 Test Item Value Reference Range Interpretation Comments BUN (test code = BUN) 16 7-22 [facility] [id number] 10:59:00 Test Item Value Reference Range Interpretation Comments Creatinine Lvl (test code = Creatinine 0.66 0.50-1.40 Lvl) [facility] [id number] 10:59:00 Test Item Value Reference Range Interpretation Comments Sodium Lvl (test code = Sodium Lvl) 141 135-145 [facility] [id number] 10:59:00 Test Item Value Reference Range Interpretation Comments Potassium Lvl (test code = Potassium 3.8 3.5-5.1 Lvl) [facility] [id number] 10:59:00 Test Item Value Reference Range Interpretation Comments Chloride Lvl (test code = Chloride Lvl) 109 95-109 [facility] [id number] 10:59:00 Test Item Value Reference Range Interpretation Comments CO2 (test code = CO2) 26 24-32 [facility]2022-04-08 10:59:00 Test Item Value Reference Range Interpretation Comments AGAP (test code = AGAP) 9.8 10.0-20.0 [facility] [id number] 10:59:00 Test Item Value Reference Range Interpretation Comments Calcium Lvl (test code = Calcium Lvl) 9.2 8.5-10.5 [facility]2022-04-08 10:59:00 Test Item Value Reference Range Interpretation Comments eGFR (test code = eGFR) 99 [facility] CypressFgktrotCSTUZISUPF3782-33-76 10:59:00 Test Item Value Reference Range Interpretation Comments WBC (test code = WBC) 7.9 3.7-10.4 [facility] CypressQzfldmwOTQUAYHPIJ0289-21-23 10:59:00 Test Item Value Reference Range Interpretation Comments RBC (test code = RBC) 4.05 4.20-5.40 [facility] CypressQrnqwmqLIASZTSLLY7918-10-72 10:59:00 Test Item Value Reference Range Interpretation Comments Hgb (test code = Hgb) 11.8 12.0-16.0 [facility] CypressNyggcpjCVBDLUJEEE7015-96-66 10:59:00 Test Item Value Reference Range Interpretation Comments Hct (test code = Hct) 35.9 36.0-48.0 [facility] CypressDhxxhonCDKBWXGURF7874-37-98 10:59:00 Test Item Value Reference Range Interpretation Comments MCV (test code = MCV) 88.7 80.0-98.0 [facility] CypressAlfwscyZAWSIFFRNB5488-12-89 10:59:00 Test Item Value Reference Range Interpretation Comments MCH (test code = MCH) 29.2 pg 27.0-31.0 [facility] CypressXuavcsoYEHYEFFLVI0838-95-45 10:59:00 Test Item Value Reference Range Interpretation Comments MCHC (test code = MCHC) 32.9 32.0-36.0 [place] 747592-04-08 10:59:00 Test Item Value Reference Range Interpretation Comments RDW (test code = RDW) 14.8 11.5-14.5 [facility] CypressQxwarbwRGPSZJZNIN3656-58-87 10:59:00 Test Item Value Reference Range Interpretation Comments Platelet (test code = Platelet) 280 133-450 [facility] CypressRdpsietWUFZRLHRQA3244-26-31 10:59:00 Test Item Value Reference Range Interpretation Comments MPV (test code = MPV) 8.0 7.4-10.4 [facility] CypressUcfaafwZMEZMWXEWB0807-18-71 10:59:00 Test Item Value Reference Range Interpretation Comments Segs (test code = Segs) 67.8 45.0-75.0 [facility] CypressPbrfpgzAFXOJPTHON7983-76-70 10:59:00 Test Item Value Reference Range Interpretation Comments Lymphocytes (test code = Lymphocytes) 22.8 20.0-40.0 [facility] CypressUzauetlNZBQILLHWA6228-27-19 10:59:00 Test Item Value Reference Range Interpretation Comments Monocytes (test code = Monocytes) 8.8 2.0-12.0 [facility] CypressDawpviqXFESXHWADI1774-53-38 10:59:00 Test Item Value Reference Range Interpretation Comments Eosinophils (test code = 0.4 See_Comment [A utomated message] The Eosinophils) system which ge nerated this result tra nsmitted reference range : <=4.0. The reference r abdifatah was not used to int erpret this result as normal/abnormal . [facility] CypressQuazdefITSPLPNBDB5933-79-22 10:59:00 Test Item Value Reference Range Interpretation Comments Basophils (test code = 0.2 See_Comment [Aut omated message] The Basophils) system which ge nerated this result tra nsmitted reference range : <=1.0. The reference r abdifatah was not used to int erpret this result as normal/abnormal . [facility] CypressHpdflhqXHJBHUDAQM4784-96-71 10:59:00 Test Item Value Reference Range Interpretation Comments Neutrophils # (test code = Neutrophils 5.3 1.5-8.1 #) [facility] CypressUtmirzyLQODGTJGYJ5919-52-43 10:59:00 Test Item Value Reference Range Interpretation Comments Lymphocytes # (test code = Lymphocytes 1.8 1.0-5.5 #) [facility] CypressJmwkexpFYOVWOTTSP7687-78-06 10:59:00 Test Item Value Reference Range Interpretation Comments Monocytes # (test code 0.7 See_Comment [Aut omated message] The = Monocytes #) system which generated this result tra nsmitted reference range : <=0.8. The reference r abdifatah was not used to int erpret this result as normal/abnormal . [facility]2022-04-08 10:59:00 Test Item Value Reference Range Interpretation Comments Glucose Lvl (test code = Glucose Lvl) 96 70-99 [facility]2022-04-08 10:59:00 Test Item Value Reference Range Interpretation Comments BUN (test code = BUN) 16 7-22 [place] 663522-04-08 10:59:00 Test Item Value Reference Range Interpretation Comments Creatinine Lvl (test code = Creatinine 0.66 0.50-1.40 Lvl) [facility]2022-04-08 10:59:00 Test Item Value Reference Range Interpretation Comments Sodium Lvl (test code = Sodium Lvl) 141 135-145 [place] 663522-04-08 10:59:00 Test Item Value Reference Range Interpretation Comments Potassium Lvl (test code = Potassium 3.8 3.5-5.1 Lvl) [facility]2022-04-08 10:59:00 Test Item Value Reference Range Interpretation Comments Chloride Lvl (test code = Chloride Lvl) 109 95-109 [facility]2022-04-08 10:59:00 Test Item Value Reference Range Interpretation Comments CO2 (test code = CO2) 26 24-32 [facility]2022-04-08 10:59:00 Test Item Value Reference Range Interpretation Comments AGAP (test code = AGAP) 9.8 10.0-20.0 [facility]2022-04-08 10:59:00 Test Item Value Reference Range Interpretation Comments Calcium Lvl (test code = Calcium Lvl) 9.2 8.5-10.5 [facility]2022-04-08 10:59:00 Test Item Value Reference Range Interpretation Comments eGFR (test code = eGFR) 99 [facility] CypressMruufkbAFCUNNPSNS0539-20-26 10:59:00 Test Item Value Reference Range Interpretation Comments WBC (test code = WBC) 7.9 3.7-10.4 [place] 747592-04-08 10:59:00 Test Item Value Reference Range Interpretation Comments RBC (test code = RBC) 4.05 4.20-5.40 [place] 747592-04-08 10:59:00 Test Item Value Reference Range Interpretation Comments Hgb (test code = Hgb) 11.8 12.0-16.0 [place] 747592-04-08 10:59:00 Test Item Value Reference Range Interpretation Comments Hct (test code = Hct) 35.9 36.0-48.0 [facility] CypressRihxblkHKKDSPNIOL2914-59-84 10:59:00 Test Item Value Reference Range Interpretation Comments MCV (test code = MCV) 88.7 80.0-98.0 [facility] CypressJzhyhrlALDGVTJYSH5505-07-89 10:59:00 Test Item Value Reference Range Interpretation Comments MCH (test code = MCH) 29.2 pg 27.0-31.0 [facility] CypressDiptqoiEDMSJJZNCS5792-42-88 10:59:00 Test Item Value Reference Range Interpretation Comments MCHC (test code = MCHC) 32.9 32.0-36.0 [facility] CypressWzsovkwMGVOJVPGQI6062-28-99 10:59:00 Test Item Value Reference Range Interpretation Comments RDW (test code = RDW) 14.8 11.5-14.5 [place] 747592-04-08 10:59:00 Test Item Value Reference Range Interpretation Comments Platelet (test code = Platelet) 280 133-450 [facility] CypressEobupzbDBHZXAMSOY4961-85-36 10:59:00 Test Item Value Reference Range Interpretation Comments MPV (test code = MPV) 8.0 7.4-10.4 [facility] CypressZnxbbjaFSHXKRPTOM0987-84-89 10:59:00 Test Item Value Reference Range Interpretation Comments Segs (test code = Segs) 67.8 45.0-75.0 [facility] CypressYgkrbuhLVRRLDVQXZ2752-97-28 10:59:00 Test Item Value Reference Range Interpretation Comments Lymphocytes (test code = Lymphocytes) 22.8 20.0-40.0 [place] 747592-04-08 10:59:00 Test Item Value Reference Range Interpretation Comments Monocytes (test code = Monocytes) 8.8 2.0-12.0 [place] 747592-04-08 10:59:00 Test Item Value Reference Range Interpretation Comments Eosinophils (test code = 0.4 See_Comment [A utomated message] The Eosinophils) system which ge nerated this result tra nsmitted reference range : <=4.0. The reference r abdifatah was not used to int erpret this result as normal/abnormal . [facility] CypressVqvtcokTMRQQJBAEE1724-04-44 10:59:00 Test Item Value Reference Range Interpretation Comments Basophils (test code = 0.2 See_Comment [Aut omated message] The Basophils) system which ge nerated this result tra nsmitted reference range : <=1.0. The reference r abdifatah was not used to int erpret this result as normal/abnormal . [place] 747592-04-08 10:59:00 Test Item Value Reference Range Interpretation Comments Neutrophils # (test code = Neutrophils 5.3 1.5-8.1 #) [facility] CypressTryzanjHJYGTYNKQK4956-94-98 10:59:00 Test Item Value Reference Range Interpretation Comments Lymphocytes # (test code = Lymphocytes 1.8 1.0-5.5 #) [facility] CypressWcatdglDVVIKUPLJB0506-51-83 10:59:00 Test Item Value Reference Range Interpretation Comments Monocytes # (test code 0.7 See_Comment [Aut omated message] The = Monocytes #) system which generated this result tra nsmitted reference range : <=0.8. The reference r abdifatah was not used to int erpret this result as normal/abnormal . [facility] [id number] 10:59:00 Test Item Value Reference Range Interpretation Comments Glucose Lvl (test code = Glucose Lvl) 96 70-99 [facility] [id number] 10:59:00 Test Item Value Reference Range Interpretation Comments BUN (test code = BUN) 16 7-22 [facility] [id number] 10:59:00 Test Item Value Reference Range Interpretation Comments Creatinine Lvl (test code = Creatinine 0.66 0.50-1.40 Lvl) [facility] [id number] 10:59:00 Test Item Value Reference Range Interpretation Comments Sodium Lvl (test code = Sodium Lvl) 141 135-145 [facility] [id number] 10:59:00 Test Item Value Reference Range Interpretation Comments Potassium Lvl (test code = Potassium 3.8 3.5-5.1 Lvl) [facility] [id number] 10:59:00 Test Item Value Reference Range Interpretation Comments Chloride Lvl (test code = Chloride Lvl) 109 95-109 [facility] [id number] 10:59:00 Test Item Value Reference Range Interpretation Comments CO2 (test code = CO2) 26 24-32 [facility] [id number] 10:59:00 Test Item Value Reference Range Interpretation Comments AGAP (test code = AGAP) 9.8 10.0-20.0 [facility] [id number] 10:59:00 Test Item Value Reference Range Interpretation Comments Calcium Lvl (test code = Calcium Lvl) 9.2 8.5-10.5 [facility] [id number] 10:59:00 Test Item Value Reference Range Interpretation Comments eGFR (test code = eGFR) 99 [facility]mfbn[facility]PRXZHLLZV4070-91-66 10:59:00 Test Item Value Reference Range Interpretation Comments WBC (test code = WBC) 7.9 3.7-10.4 [facility]ressXvdzmgyRBWHMDLETT8548-39-52 10:59:00 Test Item Value Reference Range Interpretation Comments RBC (test code = RBC) 4.05 4.20-5.40 [facility] CypressPcjymmoVAKCCHCQBW9207-18-17 10:59:00 Test Item Value Reference Range Interpretation Comments Hgb (test code = Hgb) 11.8 12.0-16.0 [facility] CypressZiiigmvYXJGTYYIME0751-07-85 10:59:00 Test Item Value Reference Range Interpretation Comments Hct (test code = Hct) 35.9 36.0-48.0 [facility] CypressJisrrcuVVKPYOABZU3455-01-57 10:59:00 Test Item Value Reference Range Interpretation Comments MCV (test code = MCV) 88.7 80.0-98.0 [facility] CypressMxnrqqxBQUDRRKQSV7362-63-46 10:59:00 Test Item Value Reference Range Interpretation Comments MCH (test code = MCH) 29.2 pg 27.0-31.0 [facility] CypressMxepfawHTEZGRENJE1567-52-07 10:59:00 Test Item Value Reference Range Interpretation Comments MCHC (test code = MCHC) 32.9 32.0-36.0 [facility] CypressAgjvtmgZZQICJRZZE5495-55-72 10:59:00 Test Item Value Reference Range Interpretation Comments RDW (test code = RDW) 14.8 11.5-14.5 [facility] CypressCfmsubiFVAYYONFWA7427-21-43 10:59:00 Test Item Value Reference Range Interpretation Comments Platelet (test code = Platelet) 280 133-450 [facility] CypressSbugdvoCKRWTURUDE2526-16-61 10:59:00 Test Item Value Reference Range Interpretation Comments MPV (test code = MPV) 8.0 7.4-10.4 [place] 747592-04-08 10:59:00 Test Item Value Reference Range Interpretation Comments Segs (test code = Segs) 67.8 45.0-75.0 [place] 747592-04-08 10:59:00 Test Item Value Reference Range Interpretation Comments Lymphocytes (test code = Lymphocytes) 22.8 20.0-40.0 [place] 747592-04-08 10:59:00 Test Item Value Reference Range Interpretation Comments Monocytes (test code = Monocytes) 8.8 2.0-12.0 [place] 747592-04-08 10:59:00 Test Item Value Reference Range Interpretation Comments Eosinophils (test code = 0.4 See_Comment [A utomated message] The Eosinophils) system which ge nerated this result tra nsmitted reference range : <=4.0. The reference r abdifatah was not used to int erpret this result as normal/abnormal . [facility] CypressApaekiuUWTAVPMCKL9002-52-07 10:59:00 Test Item Value Reference Range Interpretation Comments Basophils (test code = 0.2 See_Comment [Aut omated message] The Basophils) system which ge nerated this result tra nsmitted reference range : <=1.0. The reference r abdifatah was not used to int erpret this result as normal/abnormal . [facility] CypressSfclfomFQTOVIVQPN7792-74-00 10:59:00 Test Item Value Reference Range Interpretation Comments Neutrophils # (test code = Neutrophils 5.3 1.5-8.1 #) [facility] CypressFhpaayrEIUXSFRLSI3582-59-16 10:59:00 Test Item Value Reference Range Interpretation Comments Lymphocytes # (test code = Lymphocytes 1.8 1.0-5.5 #) [facility] CypressYlhghcbVIZKMLPOOC6121-95-98 10:59:00 Test Item Value Reference Range Interpretation Comments Monocytes # (test code 0.7 See_Comment [Aut omated message] The = Monocytes #) system which generated this result tra nsmitted reference range : <=0.8. The reference r abdifatah was not used to int erpret this result as normal/abnormal . [facility] [id number] 10:59:00 Test Item Value Reference Range Interpretation Comments Glucose Lvl (test code = Glucose Lvl) 96 70-99 [facility] [id number] 10:59:00 Test Item Value Reference Range Interpretation Comments BUN (test code = BUN) 16 7-22 [facility]2022-04-08 10:59:00 Test Item Value Reference Range Interpretation Comments Creatinine Lvl (test code = Creatinine 0.66 0.50-1.40 Lvl) [facility]2022-04-08 10:59:00 Test Item Value Reference Range Interpretation Comments Sodium Lvl (test code = Sodium Lvl) 141 135-145 [facility]2022-04-08 10:59:00 Test Item Value Reference Range Interpretation Comments Potassium Lvl (test code = Potassium 3.8 3.5-5.1 Lvl) [place] 663522-04-08 10:59:00 Test Item Value Reference Range Interpretation Comments Chloride Lvl (test code = Chloride Lvl) 109 95-109 [facility]2022-04-08 10:59:00 Test Item Value Reference Range Interpretation Comments CO2 (test code = CO2) 26 24-32 [facility]2022-04-08 10:59:00 Test Item Value Reference Range Interpretation Comments AGAP (test code = AGAP) 9.8 10.0-20.0 [facility]2022-04-08 10:59:00 Test Item Value Reference Range Interpretation Comments Calcium Lvl (test code = Calcium Lvl) 9.2 8.5-10.5 [facility]2022-04-08 10:59:00 Test Item Value Reference Range Interpretation Comments eGFR (test code = eGFR) 99 [facility] CypressActrautZKFJNCCHAB9159-65-94 10:59:00 Test Item Value Reference Range Interpretation Comments WBC (test code = WBC) 7.9 3.7-10.4 [place] 747592-04-08 10:59:00 Test Item Value Reference Range Interpretation Comments RBC (test code = RBC) 4.05 4.20-5.40 [place] 747592-04-08 10:59:00 Test Item Value Reference Range Interpretation Comments Hgb (test code = Hgb) 11.8 12.0-16.0 [place] [address]-04-08 10:59:00 Test Item Value Reference Range Interpretation Comments Hct (test code = Hct) 35.9 36.0-48.0 [place] [address]-04-08 10:59:00 Test Item Value Reference Range Interpretation Comments MCV (test code = MCV) 88.7 80.0-98.0 [facility] CypressDxcdnkiVSRMLWFXGX7034-22-29 10:59:00 Test Item Value Reference Range Interpretation Comments MCH (test code = MCH) 29.2 pg 27.0-31.0 [facility] CypressKrvspzgSJDUDHJLFO0641-16-98 10:59:00 Test Item Value Reference Range Interpretation Comments MCHC (test code = MCHC) 32.9 32.0-36.0 [facility] CypressPpymmpjPRADMKLOCB9932-77-82 10:59:00 Test Item Value Reference Range Interpretation Comments RDW (test code = RDW) 14.8 11.5-14.5 [facility] CypressGnxkxprUMORHSZPAD9730-62-20 10:59:00 Test Item Value Reference Range Interpretation Comments Platelet (test code = Platelet) 280 133-450 [facility] CypressNgepncpRHBVJCOPDU6352-57-15 10:59:00 Test Item Value Reference Range Interpretation Comments MPV (test code = MPV) 8.0 7.4-10.4 [facility] CypressVstufgqEWKMCLIMVG4832-20-11 10:59:00 Test Item Value Reference Range Interpretation Comments Segs (test code = Segs) 67.8 45.0-75.0 [facility] CypressPtatojhCHUMJPTFJW3988-94-35 10:59:00 Test Item Value Reference Range Interpretation Comments Lymphocytes (test code = Lymphocytes) 22.8 20.0-40.0 [facility] CypressFxjaslmJENBDUJGFT3209-76-49 10:59:00 Test Item Value Reference Range Interpretation Comments Monocytes (test code = Monocytes) 8.8 2.0-12.0 [facility] CypressSiawgwlENDGUXNSQT9024-48-81 10:59:00 Test Item Value Reference Range Interpretation Comments Eosinophils (test code = Eosinophils) 0.4 <=4.0 [facility] CypressHrrydaxRVAAUZPLSX3422-40-18 10:59:00 Test Item Value Reference Range Interpretation Comments Basophils (test code = Basophils) 0.2 <=1.0 [facility] CypressWrwpquoDSRLYFHUSQ3170-59-69 10:59:00 Test Item Value Reference Range Interpretation Comments Neutrophils # (test code = Neutrophils 5.3 1.5-8.1 #) [facility] CypressBrxcowvQCIPBABCQW2869-58-44 10:59:00 Test Item Value Reference Range Interpretation Comments Lymphocytes # (test code = Lymphocytes 1.8 1.0-5.5 #) [facility] CypressZjetswoCVZBJNSQSD8408-49-08 10:59:00 Test Item Value Reference Range Interpretation Comments Monocytes # (test code = Monocytes #) 0.7 <=0.8 [place] 663522-04-08 10:59:00 Test Item Value Reference Range Interpretation Comments Glucose Lvl (test code = Glucose Lvl) 96 70-99 [place] 663522-04-08 10:59:00 Test Item Value Reference Range Interpretation Comments BUN (test code = BUN) 16 7-22 [place] 663522-04-08 10:59:00 Test Item Value Reference Range Interpretation Comments Creatinine Lvl (test code = Creatinine 0.66 0.50-1.40 Lvl) [facility]2022-04-08 10:59:00 Test Item Value Reference Range Interpretation Comments Sodium Lvl (test code = Sodium Lvl) 141 135-145 [facility]2022-04-08 10:59:00 Test Item Value Reference Range Interpretation Comments Potassium Lvl (test code = Potassium 3.8 3.5-5.1 Lvl) [facility]2022-04-08 10:59:00 Test Item Value Reference Range Interpretation Comments Chloride Lvl (test code = Chloride Lvl) 109 95-109 [facility]2022-04-08 10:59:00 Test Item Value Reference Range Interpretation Comments CO2 (test code = CO2) 26 24-32 [place] 663522-04-08 10:59:00 Test Item Value Reference Range Interpretation Comments AGAP (test code = AGAP) 9.8 10.0-20.0 [place] 663522-04-08 10:59:00 Test Item Value Reference Range Interpretation Comments Calcium Lvl (test code = Calcium Lvl) 9.2 8.5-10.5 [place] 663522-04-08 10:59:00 Test Item Value Reference Range Interpretation Comments eGFR (test code = eGFR) 99 [facility] CypressZvbxyazWURHSNUBQD8311-46-36 10:59:00 Test Item Value Reference Range Interpretation Comments WBC (test code = WBC) 7.9 3.7-10.4 [place] 747592-04-08 10:59:00 Test Item Value Reference Range Interpretation Comments RBC (test code = RBC) 4.05 4.20-5.40 [facility] CypressBfjslcqPVGZOROEMP0725-43-04 10:59:00 Test Item Value Reference Range Interpretation Comments Hgb (test code = Hgb) 11.8 12.0-16.0 [place] 747592-04-08 10:59:00 Test Item Value Reference Range Interpretation Comments Hct (test code = Hct) 35.9 36.0-48.0 [facility] CypressBgvrqmhSOEJEITUKE5718-70-08 10:59:00 Test Item Value Reference Range Interpretation Comments MCV (test code = MCV) 88.7 80.0-98.0 [facility] CypressMfsodprVEURRYKSWT5759-37-80 10:59:00 Test Item Value Reference Range Interpretation Comments MCH (test code = MCH) 29.2 pg 27.0-31.0 [facility] CypressCclzmmiGEFMCECLRW3047-32-56 10:59:00 Test Item Value Reference Range Interpretation Comments MCHC (test code = MCHC) 32.9 32.0-36.0 [facility] CypressLdlmsevGFCNTQKLEI0554-41-87 10:59:00 Test Item Value Reference Range Interpretation Comments RDW (test code = RDW) 14.8 11.5-14.5 [facility] CypressAguqvcrXQLMIEKBII4168-36-78 10:59:00 Test Item Value Reference Range Interpretation Comments Platelet (test code = Platelet) 280 133-450 [facility] CypressMobltmiGNMSGPPVUV9850-27-16 10:59:00 Test Item Value Reference Range Interpretation Comments MPV (test code = MPV) 8.0 7.4-10.4 [facility] CypressYsakhzhSNROHSCZBY7468-92-52 10:59:00 Test Item Value Reference Range Interpretation Comments Segs (test code = Segs) 67.8 45.0-75.0 [place] 747592-04-08 10:59:00 Test Item Value Reference Range Interpretation Comments Lymphocytes (test code = Lymphocytes) 22.8 20.0-40.0 [facility] CypressVgmcdgkQKNJTBOJJA7481-22-79 10:59:00 Test Item Value Reference Range Interpretation Comments Monocytes (test code = Monocytes) 8.8 2.0-12.0 [facility] CypressHtfavbeUHDNZZPTUN2203-11-61 10:59:00 Test Item Value Reference Range Interpretation Comments Eosinophils (test code = Eosinophils) 0.4 <=4.0 [place] 747592-04-08 10:59:00 Test Item Value Reference Range Interpretation Comments Basophils (test code = Basophils) 0.2 <=1.0 [place] 747592-04-08 10:59:00 Test Item Value Reference Range Interpretation Comments Neutrophils # (test code = Neutrophils 5.3 1.5-8.1 #) [place] 747592-04-08 10:59:00 Test Item Value Reference Range Interpretation Comments Lymphocytes # (test code = Lymphocytes 1.8 1.0-5.5 #) [facility] CypressQinrvtxJIFXBHTAID1257-59-66 10:59:00 Test Item Value Reference Range Interpretation Comments Monocytes # (test code = Monocytes #) 0.7 <=0.8 [facility]2022-04-08 10:59:00 Test Item Value Reference Range Interpretation Comments Glucose Lvl (test code = Glucose Lvl) 96 70-99 [facility]2022-04-08 10:59:00 Test Item Value Reference Range Interpretation Comments BUN (test code = BUN) 16 7-22 [facility]2022-04-08 10:59:00 Test Item Value Reference Range Interpretation Comments Creatinine Lvl (test code = Creatinine 0.66 0.50-1.40 Lvl) [facility]2022-04-08 10:59:00 Test Item Value Reference Range Interpretation Comments Sodium Lvl (test code = Sodium Lvl) 141 135-145 [facility]2022-04-08 10:59:00 Test Item Value Reference Range Interpretation Comments Potassium Lvl (test code = Potassium 3.8 3.5-5.1 Lvl) [facility]2022-04-08 10:59:00 Test Item Value Reference Range Interpretation Comments Chloride Lvl (test code = Chloride Lvl) 109 95-109 [facility]2022-04-08 10:59:00 Test Item Value Reference Range Interpretation Comments CO2 (test code = CO2) 26 24-32 [place] 663522-04-08 10:59:00 Test Item Value Reference Range Interpretation Comments AGAP (test code = AGAP) 9.8 10.0-20.0 [place] 663522-04-08 10:59:00 Test Item Value Reference Range Interpretation Comments Calcium Lvl (test code = Calcium Lvl) 9.2 8.5-10.5 [facility]2022-04-08 10:59:00 Test Item Value Reference Range Interpretation Comments eGFR (test code = eGFR) 99 [facility]ressWysukegJCQVBJGAJZ7873-38-26 10:59:00 Test Item Value Reference Range Interpretation Comments WBC (test code = WBC) 7.9 3.7-10.4 [facility] CypressBauzwnpYHWICWXEZA2716-20-67 10:59:00 Test Item Value Reference Range Interpretation Comments RBC (test code = RBC) 4.05 4.20-5.40 [facility] CypressOfjwgwjRJAYTKVRTR6823-40-47 10:59:00 Test Item Value Reference Range Interpretation Comments Hgb (test code = Hgb) 11.8 12.0-16.0 [facility] CypressSsjgkhjWHMKUPEQXT0520-46-58 10:59:00 Test Item Value Reference Range Interpretation Comments Hct (test code = Hct) 35.9 36.0-48.0 [facility] CypressZvudjwhTXDXZJRXKK0066-98-24 10:59:00 Test Item Value Reference Range Interpretation Comments MCV (test code = MCV) 88.7 80.0-98.0 [facility] CypressWwphnbpEWELIVLJHY4495-16-93 10:59:00 Test Item Value Reference Range Interpretation Comments MCH (test code = MCH) 29.2 pg 27.0-31.0 [facility] CypressRzpcdwiMHQOUBSYWG6282-75-29 10:59:00 Test Item Value Reference Range Interpretation Comments MCHC (test code = MCHC) 32.9 32.0-36.0 [facility] CypressHyxgkriDSSVEAHZVN5215-00-15 10:59:00 Test Item Value Reference Range Interpretation Comments RDW (test code = RDW) 14.8 11.5-14.5 [place] [address]-04-08 10:59:00 Test Item Value Reference Range Interpretation Comments Platelet (test code = Platelet) 280 133-450 [facility] CypressSkqhfatRFRDMFCAGN1692-03-18 10:59:00 Test Item Value Reference Range Interpretation Comments MPV (test code = MPV) 8.0 7.4-10.4 [facility] CypressNowzmekUQALKLPFUW2211-42-45 10:59:00 Test Item Value Reference Range Interpretation Comments Segs (test code = Segs) 67.8 45.0-75.0 [place] 747592-04-08 10:59:00 Test Item Value Reference Range Interpretation Comments Lymphocytes (test code = Lymphocytes) 22.8 20.0-40.0 [place] 747592-04-08 10:59:00 Test Item Value Reference Range Interpretation Comments Monocytes (test code = Monocytes) 8.8 2.0-12.0 [facility] CypressTkcuekkKBNXKFXDWB3431-83-53 10:59:00 Test Item Value Reference Range Interpretation Comments Eosinophils (test code = 0.4 See_Comment [A utomated message] The Eosinophils) system which ge nerated this result tra nsmitted reference range : <=4.0. The reference r abdifatah was not used to int erpret this result as normal/abnormal . [facility] CypressEdinkflHHKOWAOHEB6098-80-54 10:59:00 Test Item Value Reference Range Interpretation Comments Basophils (test code = 0.2 See_Comment [Aut omated message] The Basophils) system which ge nerated this result tra nsmitted reference range : <=1.0. The reference r abdifatah was not used to int erpret this result as normal/abnormal . [facility] CypressIkbrpkiVDENEQEPTR0850-99-56 10:59:00 Test Item Value Reference Range Interpretation Comments Neutrophils # (test code = Neutrophils 5.3 1.5-8.1 #) [facility] CypressVixbswlFYHEIRERRS2161-09-29 10:59:00 Test Item Value Reference Range Interpretation Comments Lymphocytes # (test code = Lymphocytes 1.8 1.0-5.5 #) [facility] CypressDrxplfdZCTAFFBBYA3853-73-92 10:59:00 Test Item Value Reference Range Interpretation Comments Monocytes # (test code 0.7 See_Comment [Aut omated message] The = Monocytes #) system which generated this result tra nsmitted reference range : <=0.8. The reference r abdifatah was not used to int erpret this result as normal/abnormal . [facility] [id number] 10:59:00 Test Item Value Reference Range Interpretation Comments Glucose Lvl (test code = Glucose Lvl) 96 70-99 [facility] [id number] 10:59:00 Test Item Value Reference Range Interpretation Comments BUN (test code = BUN) 16 7-22 [facility] [id number] 10:59:00 Test Item Value Reference Range Interpretation Comments Creatinine Lvl (test code = Creatinine 0.66 0.50-1.40 Lvl) [place] 663522-04-08 10:59:00 Test Item Value Reference Range Interpretation Comments Sodium Lvl (test code = Sodium Lvl) 141 135-145 [place] 663522-04-08 10:59:00 Test Item Value Reference Range Interpretation Comments Potassium Lvl (test code = Potassium 3.8 3.5-5.1 Lvl) [facility]2022-04-08 10:59:00 Test Item Value Reference Range Interpretation Comments Chloride Lvl (test code = Chloride Lvl) 109 95-109 [place] 663522-04-08 10:59:00 Test Item Value Reference Range Interpretation Comments CO2 (test code = CO2) 26 24-32 [facility]2022-04-08 10:59:00 Test Item Value Reference Range Interpretation Comments AGAP (test code = AGAP) 9.8 10.0-20.0 [place] 663522-04-08 10:59:00 Test Item Value Reference Range Interpretation Comments Calcium Lvl (test code = Calcium Lvl) 9.2 8.5-10.5 [facility]2022-04-08 10:59:00 Test Item Value Reference Range Interpretation Comments eGFR (test code = eGFR) 99 [facility] CypressYqlgcxvTMFQVBIOEZ7084-25-61 10:59:00 Test Item Value Reference Range Interpretation Comments WBC (test code = WBC) 7.9 3.7-10.4 [place] 747592-04-08 10:59:00 Test Item Value Reference Range Interpretation Comments RBC (test code = RBC) 4.05 4.20-5.40 [place] 747592-04-08 10:59:00 Test Item Value Reference Range Interpretation Comments Hgb (test code = Hgb) 11.8 12.0-16.0 [place] [address]-04-08 10:59:00 Test Item Value Reference Range Interpretation Comments Hct (test code = Hct) 35.9 36.0-48.0 [place] 747592-04-08 10:59:00 Test Item Value Reference Range Interpretation Comments MCV (test code = MCV) 88.7 80.0-98.0 [facility] CypressAabbtieJQTZALILJQ0856-00-42 10:59:00 Test Item Value Reference Range Interpretation Comments MCH (test code = MCH) 29.2 pg 27.0-31.0 [facility] CypressDahptvwUWAOYRAOCX0246-15-94 10:59:00 Test Item Value Reference Range Interpretation Comments MCHC (test code = MCHC) 32.9 32.0-36.0 [facility] CypressJnbwtnzQWRQMTQPZE2160-21-12 10:59:00 Test Item Value Reference Range Interpretation Comments RDW (test code = RDW) 14.8 11.5-14.5 [facility] CypressBfuijbpMGOVRXWRQJ4888-79-48 10:59:00 Test Item Value Reference Range Interpretation Comments Platelet (test code = Platelet) 280 133-450 [facility] CypressBsptvcvYBIXDYVDPF5598-38-47 10:59:00 Test Item Value Reference Range Interpretation Comments MPV (test code = MPV) 8.0 7.4-10.4 [facility] CypressTskocswXPIUDENYMN7497-93-38 10:59:00 Test Item Value Reference Range Interpretation Comments Segs (test code = Segs) 67.8 45.0-75.0 [facility] CypressPpevtldADZCQEKHZW6890-28-55 10:59:00 Test Item Value Reference Range Interpretation Comments Lymphocytes (test code = Lymphocytes) 22.8 20.0-40.0 [facility] CypressGwoaytaUSSSCCTAOH8330-07-97 10:59:00 Test Item Value Reference Range Interpretation Comments Monocytes (test code = Monocytes) 8.8 2.0-12.0 [facility] CypressAdstqteVYPLTERCLV5208-45-37 10:59:00 Test Item Value Reference Range Interpretation Comments Eosinophils (test code = Eosinophils) 0.4 <=4.0 [facility] CypressYipwvhhOLSKQESCVY3186-73-47 10:59:00 Test Item Value Reference Range Interpretation Comments Basophils (test code = Basophils) 0.2 <=1.0 [facility] CypressGfgguknPYYLIPJXEV9158-39-36 10:59:00 Test Item Value Reference Range Interpretation Comments Neutrophils # (test code = Neutrophils 5.3 1.5-8.1 #) [facility] CypressZroixuaNYNHYXSGFO7607-47-71 10:59:00 Test Item Value Reference Range Interpretation Comments Lymphocytes # (test code = Lymphocytes 1.8 1.0-5.5 #) [facility] CypressDhzfxcjIWHLZKHJKT5259-03-25 10:59:00 Test Item Value Reference Range Interpretation Comments Monocytes # (test code = Monocytes #) 0.7 <=0.8 [place] 663522-04-08 10:59:00 Test Item Value Reference Range Interpretation Comments Glucose Lvl (test code = Glucose Lvl) 96 70-99 [place] 663522-04-08 10:59:00 Test Item Value Reference Range Interpretation Comments BUN (test code = BUN) 16 7-22 [facility]2022-04-08 10:59:00 Test Item Value Reference Range Interpretation Comments Creatinine Lvl (test code = Creatinine 0.66 0.50-1.40 Lvl) [facility]2022-04-08 10:59:00 Test Item Value Reference Range Interpretation Comments Sodium Lvl (test code = Sodium Lvl) 141 135-145 [facility]2022-04-08 10:59:00 Test Item Value Reference Range Interpretation Comments Potassium Lvl (test code = Potassium 3.8 3.5-5.1 Lvl) [facility]2022-04-08 10:59:00 Test Item Value Reference Range Interpretation Comments Chloride Lvl (test code = Chloride Lvl) 109 95-109 [facility]2022-04-08 10:59:00 Test Item Value Reference Range Interpretation Comments CO2 (test code = CO2) 26 24-32 [facility]2022-04-08 10:59:00 Test Item Value Reference Range Interpretation Comments AGAP (test code = AGAP) 9.8 10.0-20.0 [facility]2022-04-08 10:59:00 Test Item Value Reference Range Interpretation Comments Calcium Lvl (test code = Calcium Lvl) 9.2 8.5-10.5 [facility]2022-04-08 10:59:00 Test Item Value Reference Range Interpretation Comments eGFR (test code = eGFR) 99 [facility] CypressTykolrmOBFCKXLYLJ4568-33-14 10:59:00 Test Item Value Reference Range Interpretation Comments WBC (test code = WBC) 7.9 3.7-10.4 [place] 747592-04-08 10:59:00 Test Item Value Reference Range Interpretation Comments RBC (test code = RBC) 4.05 4.20-5.40 [place] 747592-04-08 10:59:00 Test Item Value Reference Range Interpretation Comments Hgb (test code = Hgb) 11.8 12.0-16.0 [facility] CypressKshivxhQGIIYRFOKS2225-59-08 10:59:00 Test Item Value Reference Range Interpretation Comments Hct (test code = Hct) 35.9 36.0-48.0 [facility] CypressPbqfoihPASCZBJQUR7436-46-08 10:59:00 Test Item Value Reference Range Interpretation Comments MCV (test code = MCV) 88.7 80.0-98.0 [facility] CypressPobeetySXYGKIATFH9653-06-69 10:59:00 Test Item Value Reference Range Interpretation Comments MCH (test code = MCH) 29.2 pg 27.0-31.0 [facility] CypressTtmkjawGOASCQINVK4486-13-18 10:59:00 Test Item Value Reference Range Interpretation Comments MCHC (test code = MCHC) 32.9 32.0-36.0 [facility] CypressGeyfqqcKMFNSUEGBO5780-12-14 10:59:00 Test Item Value Reference Range Interpretation Comments RDW (test code = RDW) 14.8 11.5-14.5 [facility] CypressBgvlqghGFBVAEEOMC9948-24-78 10:59:00 Test Item Value Reference Range Interpretation Comments Platelet (test code = Platelet) 280 133-450 [facility] CypressIsawqigUCRAMDYLXR8179-07-46 10:59:00 Test Item Value Reference Range Interpretation Comments MPV (test code = MPV) 8.0 7.4-10.4 [facility] CypressEmrdpzlDIOKXOELSZ1867-55-81 10:59:00 Test Item Value Reference Range Interpretation Comments Segs (test code = Segs) 67.8 45.0-75.0 [facility] CypressYwccehiCACIFSUIEH2481-54-40 10:59:00 Test Item Value Reference Range Interpretation Comments Lymphocytes (test code = Lymphocytes) 22.8 20.0-40.0 [facility] CypressBwhmwaoFRSZXGVWDI2245-88-71 10:59:00 Test Item Value Reference Range Interpretation Comments Monocytes (test code = Monocytes) 8.8 2.0-12.0 [facility] CypressRmdjcmgVNLECQBWHZ2364-41-46 10:59:00 Test Item Value Reference Range Interpretation Comments Eosinophils (test code = Eosinophils) 0.4 <=4.0 [facility] CypressVhuaxmyXPJVDUTQPF8965-52-69 10:59:00 Test Item Value Reference Range Interpretation Comments Basophils (test code = Basophils) 0.2 <=1.0 [place] 747592-04-08 10:59:00 Test Item Value Reference Range Interpretation Comments Neutrophils # (test code = Neutrophils 5.3 1.5-8.1 #) [facility] CypressZvcsemzMGMJRUBANK7958-95-20 10:59:00 Test Item Value Reference Range Interpretation Comments Lymphocytes # (test code = Lymphocytes 1.8 1.0-5.5 #) [facility] CypressDqwerspGWUBNSDHTK5769-96-23 10:59:00 Test Item Value Reference Range Interpretation Comments Monocytes # (test code = Monocytes #) 0.7 <=0.8 [facility]2022-04-08 10:59:00 Test Item Value Reference Range Interpretation Comments Glucose Lvl (test code = Glucose Lvl) 96 70-99 [facility]2022-04-08 10:59:00 Test Item Value Reference Range Interpretation Comments BUN (test code = BUN) 16 7-22 [place] 663522-04-08 10:59:00 Test Item Value Reference Range Interpretation Comments Creatinine Lvl (test code = Creatinine 0.66 0.50-1.40 Lvl) [facility]2022-04-08 10:59:00 Test Item Value Reference Range Interpretation Comments Sodium Lvl (test code = Sodium Lvl) 141 135-145 [facility]2022-04-08 10:59:00 Test Item Value Reference Range Interpretation Comments Potassium Lvl (test code = Potassium 3.8 3.5-5.1 Lvl) [facility]2022-04-08 10:59:00 Test Item Value Reference Range Interpretation Comments Chloride Lvl (test code = Chloride Lvl) 109 95-109 [place] 663522-04-08 10:59:00 Test Item Value Reference Range Interpretation Comments CO2 (test code = CO2) 26 24-32 [facility]2022-04-08 10:59:00 Test Item Value Reference Range Interpretation Comments AGAP (test code = AGAP) 9.8 10.0-20.0 [place] 663522-04-08 10:59:00 Test Item Value Reference Range Interpretation Comments Calcium Lvl (test code = Calcium Lvl) 9.2 8.5-10.5 [place] 663522-04-08 10:59:00 Test Item Value Reference Range Interpretation Comments eGFR (test code = eGFR) 99 [facility] CypressYcsbbanXLMHBBVTMF2443-49-33 10:59:00 Test Item Value Reference Range Interpretation Comments WBC (test code = WBC) 7.9 3.7-10.4 [facility]DlivexgNXLHPTKGAD3114-10-87 10:59:00 Test Item Value Reference Range Interpretation Comments RBC (test code = RBC) 4.05 4.20-5.40 [facility] CypressBktrktcMTTNXBSPPW3401-26-34 10:59:00 Test Item Value Reference Range Interpretation Comments Hgb (test code = Hgb) 11.8 12.0-16.0 [facility] CypressKzusubvOADJZVUPWT2458-22-60 10:59:00 Test Item Value Reference Range Interpretation Comments Hct (test code = Hct) 35.9 36.0-48.0 [facility] CypressDxjprctWKZYQWFQDL7005-65-03 10:59:00 Test Item Value Reference Range Interpretation Comments MCV (test code = MCV) 88.7 80.0-98.0 [facility] CypressMoxnmmwKXDHIBKLWA7878-36-37 10:59:00 Test Item Value Reference Range Interpretation Comments MCH (test code = MCH) 29.2 pg 27.0-31.0 [facility] HospitalJikxpgwKHKPIPVHOI6814-07-80 10:59:00 Test Item Value Reference Range Interpretation Comments MCHC (test code = MCHC) 32.9 32.0-36.0 [facility] CypressXzffmnkTMPTGNSTWX8902-94-67 10:59:00 Test Item Value Reference Range Interpretation Comments RDW (test code = RDW) 14.8 11.5-14.5 [facility] CypressCgyovozILTOCQYUSY4770-70-65 10:59:00 Test Item Value Reference Range Interpretation Comments Platelet (test code = Platelet) 280 133-450 [facility] CypressMpigfqaTLHJDSWNBL9103-70-51 10:59:00 Test Item Value Reference Range Interpretation Comments MPV (test code = MPV) 8.0 7.4-10.4 [facility] CypressZywqesoCCXNGEESSY2590-04-68 10:59:00 Test Item Value Reference Range Interpretation Comments Segs (test code = Segs) 67.8 45.0-75.0 [facility] CypressPocpkwlJKQZJODTMU9722-26-04 10:59:00 Test Item Value Reference Range Interpretation Comments Lymphocytes (test code = Lymphocytes) 22.8 20.0-40.0 [facility] CypressSzkrywyDYOEMMUZUH9204-20-01 10:59:00 Test Item Value Reference Range Interpretation Comments Monocytes (test code = Monocytes) 8.8 2.0-12.0 [facility] CypressGtroujdYHEMVVLDOG0056-53-00 10:59:00 Test Item Value Reference Range Interpretation Comments Eosinophils (test code = 0.4 See_Comment [A utomated message] The Eosinophils) system which ge nerated this result tra nsmitted reference range : <=4.0. The reference r abdifatah was not used to int erpret this result as normal/abnormal . [facility] CypressBisyfxtAVICFCMPWP5814-57-82 10:59:00 Test Item Value Reference Range Interpretation Comments Basophils (test code = 0.2 See_Comment [Aut omated message] The Basophils) system which ge nerated this result tra nsmitted reference range : <=1.0. The reference r abdifatah was not used to int erpret this result as normal/abnormal . [facility] CypressSjkydlvMOBCZNWFTH6397-67-30 10:59:00 Test Item Value Reference Range Interpretation Comments Neutrophils # (test code = Neutrophils 5.3 1.5-8.1 #) [facility] CypressUsgomjsFMSYIMFPDK4216-56-06 10:59:00 Test Item Value Reference Range Interpretation Comments Lymphocytes # (test code = Lymphocytes 1.8 1.0-5.5 #) [facility] CypressQohaoabATPFGYMMTN8800-96-02 10:59:00 Test Item Value Reference Range Interpretation Comments Monocytes # (test code 0.7 See_Comment [Aut omated message] The = Monocytes #) system which generated this result tra nsmitted reference range : <=0.8. The reference r abdifatah was not used to int erpret this result as normal/abnormal . [facility] YFHOQ5742-13-27 10:59:00 Test Item Value Reference Range Interpretation Comments Glucose Lvl (test code = Glucose Lvl) 96 70-99 [facility]2022-04-08 10:59:00 Test Item Value Reference Range Interpretation Comments BUN (test code = BUN) 16 7-22 [facility]2022-04-08 10:59:00 Test Item Value Reference Range Interpretation Comments Creatinine Lvl (test code = Creatinine 0.66 0.50-1.40 Lvl) [facility]2022-04-08 10:59:00 Test Item Value Reference Range Interpretation Comments Sodium Lvl (test code = Sodium Lvl) 141 135-145 [place] 663522-04-08 10:59:00 Test Item Value Reference Range Interpretation Comments Potassium Lvl (test code = Potassium 3.8 3.5-5.1 Lvl) [facility]2022-04-08 10:59:00 Test Item Value Reference Range Interpretation Comments Chloride Lvl (test code = Chloride Lvl) 109 95-109 [facility]2022-04-08 10:59:00 Test Item Value Reference Range Interpretation Comments CO2 (test code = CO2) 26 24-32 [place] 663522-04-08 10:59:00 Test Item Value Reference Range Interpretation Comments AGAP (test code = AGAP) 9.8 10.0-20.0 [place] 663522-04-08 10:59:00 Test Item Value Reference Range Interpretation Comments Calcium Lvl (test code = Calcium Lvl) 9.2 8.5-10.5 [facility]2022-04-08 10:59:00 Test Item Value Reference Range Interpretation Comments eGFR (test code = eGFR) 99 [facility] CypressQouvntfRVCSBHWZWK2513-68-18 10:59:00 Test Item Value Reference Range Interpretation Comments WBC (test code = WBC) 7.9 3.7-10.4 [place] 747592-04-08 10:59:00 Test Item Value Reference Range Interpretation Comments RBC (test code = RBC) 4.05 4.20-5.40 [place] 747592-04-08 10:59:00 Test Item Value Reference Range Interpretation Comments Hgb (test code = Hgb) 11.8 12.0-16.0 [place] [address]-04-08 10:59:00 Test Item Value Reference Range Interpretation Comments Hct (test code = Hct) 35.9 36.0-48.0 [place] [address]-04-08 10:59:00 Test Item Value Reference Range Interpretation Comments MCV (test code = MCV) 88.7 80.0-98.0 [place] [address]-04-08 10:59:00 Test Item Value Reference Range Interpretation Comments MCH (test code = MCH) 29.2 pg 27.0-31.0 [facility] CypressCpffbthMRAXXXNGAH6909-65-44 10:59:00 Test Item Value Reference Range Interpretation Comments MCHC (test code = MCHC) 32.9 32.0-36.0 [facility] CypressDidbbwcOHKGDTCEEI0436-65-96 10:59:00 Test Item Value Reference Range Interpretation Comments RDW (test code = RDW) 14.8 11.5-14.5 [facility] CypressWmjmjqjALEBNJCJKM8325-50-66 10:59:00 Test Item Value Reference Range Interpretation Comments Platelet (test code = Platelet) 280 133-450 [facility] CypressLdjzilhGWQETTBLBB0237-49-29 10:59:00 Test Item Value Reference Range Interpretation Comments MPV (test code = MPV) 8.0 7.4-10.4 [facility] CypressWtbgcigVQQZQAMGUV6918-58-83 10:59:00 Test Item Value Reference Range Interpretation Comments Segs (test code = Segs) 67.8 45.0-75.0 [facility] CypressVitjzotHMRBVKPVFO5478-87-94 10:59:00 Test Item Value Reference Range Interpretation Comments Lymphocytes (test code = Lymphocytes) 22.8 20.0-40.0 [facility] CypressMuxfpttGXIZYUNTWB6562-95-33 10:59:00 Test Item Value Reference Range Interpretation Comments Monocytes (test code = Monocytes) 8.8 2.0-12.0 [facility] CypressKmqnmugWJFLOOSDQN7790-90-80 10:59:00 Test Item Value Reference Range Interpretation Comments Eosinophils (test code = 0.4 See_Comment [A utomated message] The Eosinophils) system which ge nerated this result tra nsmitted reference range : <=4.0. The reference r abdifatah was not used to int erpret this result as normal/abnormal . [facility] CypressUkphxjtDJKBYOINUB3927-67-15 10:59:00 Test Item Value Reference Range Interpretation Comments Basophils (test code = 0.2 See_Comment [Aut omated message] The Basophils) system which ge nerated this result tra nsmitted reference range : <=1.0. The reference r abdifatah was not used to int erpret this result as normal/abnormal . [facility] CypressSidmecdKYVTKFVQUT4352-73-78 10:59:00 Test Item Value Reference Range Interpretation Comments Neutrophils # (test code = Neutrophils 5.3 1.5-8.1 #) [facility] CypressHtimhsdZVPYCQXAXB5117-50-37 10:59:00 Test Item Value Reference Range Interpretation Comments Lymphocytes # (test code = Lymphocytes 1.8 1.0-5.5 #) [facility] CypressFupyvvlJBCYSYELBK2649-82-26 10:59:00 Test Item Value Reference Range Interpretation Comments Monocytes # (test code 0.7 See_Comment [Aut omated message] The = Monocytes #) system which generated this result tra nsmitted reference range : <=0.8. The reference r abdifatah was not used to int erpret this result as normal/abnormal . [facility]2022-04-08 10:59:00 Test Item Value Reference Range Interpretation Comments Glucose Lvl (test code = Glucose Lvl) 96 70-99 [facility]2022-04-08 10:59:00 Test Item Value Reference Range Interpretation Comments BUN (test code = BUN) 16 7-22 [facility]2022-04-08 10:59:00 Test Item Value Reference Range Interpretation Comments Creatinine Lvl (test code = Creatinine 0.66 0.50-1.40 Lvl) [facility]2022-04-08 10:59:00 Test Item Value Reference Range Interpretation Comments Sodium Lvl (test code = Sodium Lvl) 141 135-145 [facility]2022-04-08 10:59:00 Test Item Value Reference Range Interpretation Comments Potassium Lvl (test code = Potassium 3.8 3.5-5.1 Lvl) [facility]2022-04-08 10:59:00 Test Item Value Reference Range Interpretation Comments Chloride Lvl (test code = Chloride Lvl) 109 95-109 [facility]2022-04-08 10:59:00 Test Item Value Reference Range Interpretation Comments CO2 (test code = CO2) 26 24-32 [facility]2022-04-08 10:59:00 Test Item Value Reference Range Interpretation Comments AGAP (test code = AGAP) 9.8 10.0-20.0 [facility]2022-04-08 10:59:00 Test Item Value Reference Range Interpretation Comments Calcium Lvl (test code = Calcium Lvl) 9.2 8.5-10.5 [facility]2022-04-08 10:59:00 Test Item Value Reference Range Interpretation Comments eGFR (test code = eGFR) 99 [id number] 10:59:00 Test Item Value Reference Range Interpretation Comments WBC (test code = WBC) 7.9 3.7-10.4 [facility]ressUzzrfyyCNDFMULPKR1067-29-03 10:59:00 Test Item Value Reference Range Interpretation Comments RBC (test code = RBC) 4.05 4.20-5.40 [facility] CypressVskpekqRJKKANCVBI0281-46-53 10:59:00 Test Item Value Reference Range Interpretation Comments Hgb (test code = Hgb) 11.8 12.0-16.0 [facility] CypressWulcoryIAWWERITJZ7251-07-78 10:59:00 Test Item Value Reference Range Interpretation Comments Hct (test code = Hct) 35.9 36.0-48.0 [facility] CypressGeucydwZMRMHZQWOM4828-90-22 10:59:00 Test Item Value Reference Range Interpretation Comments MCV (test code = MCV) 88.7 80.0-98.0 [facility] CypressDvjkjojEPSIUEDVGJ5059-01-00 10:59:00 Test Item Value Reference Range Interpretation Comments MCH (test code = MCH) 29.2 pg 27.0-31.0 [facility] CypressZmcdbejELWZDLDZBD9420-09-63 10:59:00 Test Item Value Reference Range Interpretation Comments MCHC (test code = MCHC) 32.9 32.0-36.0 [facility] CypressMbbqrjxEEVMDQYOOB2606-71-30 10:59:00 Test Item Value Reference Range Interpretation Comments RDW (test code = RDW) 14.8 11.5-14.5 [facility] CypressWgjmdugKVGOQDCYGL7198-26-80 10:59:00 Test Item Value Reference Range Interpretation Comments Platelet (test code = Platelet) 280 133-450 [facility] CypressZovlhnyFDXUZVGLHO7275-07-26 10:59:00 Test Item Value Reference Range Interpretation Comments MPV (test code = MPV) 8.0 7.4-10.4 [facility] CypressZnrurxmMONYDGZABG5725-57-89 10:59:00 Test Item Value Reference Range Interpretation Comments Segs (test code = Segs) 67.8 45.0-75.0 [facility] CypressXhjzuwzKHNWKGWUTG9346-62-36 10:59:00 Test Item Value Reference Range Interpretation Comments Lymphocytes (test code = Lymphocytes) 22.8 20.0-40.0 [facility] CypressNvckkieVDCNPENLTL0714-61-59 10:59:00 Test Item Value Reference Range Interpretation Comments Monocytes (test code = Monocytes) 8.8 2.0-12.0 [place]7592-04-08 10:59:00 Test Item Value Reference Range Interpretation Comments Eosinophils (test code = 0.4 See_Comment [A utomated message] The Eosinophils) system which ge nerated this result tra nsmitted reference range : <=4.0. The reference r abdifatah was not used to int erpret this result as normal/abnormal . [facility] CypressChakfdsVOJFLRVTON5304-85-97 10:59:00 Test Item Value Reference Range Interpretation Comments Basophils (test code = 0.2 See_Comment [Aut omated message] The Basophils) system which ge nerated this result tra nsmitted reference range : <=1.0. The reference r abdifatah was not used to int erpret this result as normal/abnormal . [facility] CypressJdrpbzdPFSVPECHAD9296-40-26 10:59:00 Test Item Value Reference Range Interpretation Comments Neutrophils # (test code = Neutrophils 5.3 1.5-8.1 #) [facility] CypressHtisnrnEEEAQMZUNZ2056-63-26 10:59:00 Test Item Value Reference Range Interpretation Comments Lymphocytes # (test code = Lymphocytes 1.8 1.0-5.5 #) [facility] [id number] 10:59:00 Test Item Value Reference Range Interpretation Comments Monocytes # (test code 0.7 See_Comment [Aut omated message] The = Monocytes #) system which generated this result tra nsmitted reference range : <=0.8. The reference r abdifatah was not used to int erpret this result as normal/abnormal . [facility] [id number] 22:20:00 Test Item Value Reference Range Interpretation Comments Glucose Lvl (test code = Glucose Lvl) 139 70-99 [facility] [id number] 22:20:00 Test Item Value Reference Range Interpretation Comments BUN (test code = BUN) 14 7-22 [facility] [id number] 22:20:00 Test Item Value Reference Range Interpretation Comments Creatinine Lvl (test code = Creatinine 0.59 0.50-1.40 Lvl) [facility] [id number] 22:20:00 Test Item Value Reference Range Interpretation Comments Sodium Lvl (test code = Sodium Lvl) 141 135-145 [place] 663522-04-07 22:20:00 Test Item Value Reference Range Interpretation Comments Potassium Lvl (test code = Potassium 4.0 3.5-5.1 Lvl) [place] 663522-04-07 22:20:00 Test Item Value Reference Range Interpretation Comments Chloride Lvl (test code = Chloride Lvl) 109 95-109 [place] 663522-04-07 22:20:00 Test Item Value Reference Range Interpretation Comments CO2 (test code = CO2) 25 24-32 [place] 663522-04-07 22:20:00 Test Item Value Reference Range Interpretation Comments Calcium Lvl (test code = Calcium Lvl) 9.3 8.5-10.5 [place] 663522-04-07 22:20:00 Test Item Value Reference Range Interpretation Comments AGAP (test code = AGAP) 11.0 10.0-20.0 [place] 663522-04-07 22:20:00 Test Item Value Reference Range Interpretation Comments eGFR (test code = eGFR) 103 [place] 747592-04-07 22:20:00 Test Item Value Reference Range Interpretation Comments WBC (test code = WBC) 7.2 3.7-10.4 [place] 747592-04-07 22:20:00 Test Item Value Reference Range Interpretation Comments RBC (test code = RBC) 4.48 4.20-5.40 [place] 747592-04-07 22:20:00 Test Item Value Reference Range Interpretation Comments Hgb (test code = Hgb) 12.9 12.0-16.0 [place] [address]-04-07 22:20:00 Test Item Value Reference Range Interpretation Comments Hct (test code = Hct) 39.5 36.0-48.0 [place] [address]-04-07 22:20:00 Test Item Value Reference Range Interpretation Comments MCV (test code = MCV) 88.1 80.0-98.0 [place] [address]-04-07 22:20:00 Test Item Value Reference Range Interpretation Comments MCH (test code = MCH) 28.9 pg 27.0-31.0 [place] 747592-04-07 22:20:00 Test Item Value Reference Range Interpretation Comments MCHC (test code = MCHC) 32.8 32.0-36.0 [place] 747592-04-07 22:20:00 Test Item Value Reference Range Interpretation Comments RDW (test code = RDW) 14.5 11.5-14.5 [place] 747592-04-07 22:20:00 Test Item Value Reference Range Interpretation Comments Platelet (test code = Platelet) 286 133-450 [facility] CypressDqkcbgySCWYCHWKZL9720-93-50 22:20:00 Test Item Value Reference Range Interpretation Comments MPV (test code = MPV) 8.2 7.4-10.4 [place] 747592-04-07 22:20:00 Test Item Value Reference Range Interpretation Comments Segs (test code = Segs) 89.9 45.0-75.0 [place] 747592-04-07 22:20:00 Test Item Value Reference Range Interpretation Comments Lymphocytes (test code = Lymphocytes) 8.8 20.0-40.0 [facility] CypressTidjdxtHFVDXVXOBX5012-04-40 22:20:00 Test Item Value Reference Range Interpretation Comments Monocytes (test code = Monocytes) 1.0 2.0-12.0 [facility] CypressNyfphqwSXYZFXFHHQ8432-78-53 22:20:00 Test Item Value Reference Range Interpretation Comments Eosinophils (test code = Eosinophils) 0.1 <=4.0 [place] 747592-04-07 22:20:00 Test Item Value Reference Range Interpretation Comments Basophils (test code = Basophils) 0.2 <=1.0 [place] 747592-04-07 22:20:00 Test Item Value Reference Range Interpretation Comments Neutrophils # (test code = Neutrophils 6.4 1.5-8.1 #) [facility] CypressNkuhsinSRGVLLDBQP2283-12-99 22:20:00 Test Item Value Reference Range Interpretation Comments Lymphocytes # (test code = Lymphocytes 0.6 1.0-5.5 #) [facility] CypressCnfuporBVOQOWYQWW5165-16-81 22:20:00 Test Item Value Reference Range Interpretation Comments Monocytes # (test code = Monocytes #) 0.1 <=0.8 [facility]2022-04-07 22:20:00 Test Item Value Reference Range Interpretation Comments Glucose Lvl (test code = Glucose Lvl) 139 70-99 [place] 663522-04-07 22:20:00 Test Item Value Reference Range Interpretation Comments BUN (test code = BUN) 14 7-22 [place] 663522-04-07 22:20:00 Test Item Value Reference Range Interpretation Comments Creatinine Lvl (test code = Creatinine 0.59 0.50-1.40 Lvl) [place] 663522-04-07 22:20:00 Test Item Value Reference Range Interpretation Comments Sodium Lvl (test code = Sodium Lvl) 141 135-145 [place] 663522-04-07 22:20:00 Test Item Value Reference Range Interpretation Comments Potassium Lvl (test code = Potassium 4.0 3.5-5.1 Lvl) [place] 663522-04-07 22:20:00 Test Item Value Reference Range Interpretation Comments Chloride Lvl (test code = Chloride Lvl) 109 95-109 [place] 663522-04-07 22:20:00 Test Item Value Reference Range Interpretation Comments CO2 (test code = CO2) 25 24-32 [place] 663522-04-07 22:20:00 Test Item Value Reference Range Interpretation Comments Calcium Lvl (test code = Calcium Lvl) 9.3 8.5-10.5 [place] 663522-04-07 22:20:00 Test Item Value Reference Range Interpretation Comments AGAP (test code = AGAP) 11.0 10.0-20.0 [place] 663522-04-07 22:20:00 Test Item Value Reference Range Interpretation Comments eGFR (test code = eGFR) 103 [place] 747592-04-07 22:20:00 Test Item Value Reference Range Interpretation Comments WBC (test code = WBC) 7.2 3.7-10.4 [place] [address]-04-07 22:20:00 Test Item Value Reference Range Interpretation Comments RBC (test code = RBC) 4.48 4.20-5.40 [place] 747592-04-07 22:20:00 Test Item Value Reference Range Interpretation Comments Hgb (test code = Hgb) 12.9 12.0-16.0 [place] 747592-04-07 22:20:00 Test Item Value Reference Range Interpretation Comments Hct (test code = Hct) 39.5 36.0-48.0 [facility] CypressItvbahtCASWQPGUGD5034-99-45 22:20:00 Test Item Value Reference Range Interpretation Comments MCV (test code = MCV) 88.1 80.0-98.0 [place] 747592-04-07 22:20:00 Test Item Value Reference Range Interpretation Comments MCH (test code = MCH) 28.9 pg 27.0-31.0 [place] 747592-04-07 22:20:00 Test Item Value Reference Range Interpretation Comments MCHC (test code = MCHC) 32.8 32.0-36.0 [place] 747592-04-07 22:20:00 Test Item Value Reference Range Interpretation Comments RDW (test code = RDW) 14.5 11.5-14.5 [place] 747592-04-07 22:20:00 Test Item Value Reference Range Interpretation Comments Platelet (test code = Platelet) 286 133-450 [facility] Cy[id number] 22:20:00 Test Item Value Reference Range Interpretation Comments MPV (test code = MPV) 8.2 7.4-10.4 [place] 747592-04-07 22:20:00 Test Item Value Reference Range Interpretation Comments Segs (test code = Segs) 89.9 45.0-75.0 [facility] CypressUhqhtncUEVXWHMMAY5410-85-10 22:20:00 Test Item Value Reference Range Interpretation Comments Lymphocytes (test code = Lymphocytes) 8.8 20.0-40.0 [place] 747592-04-07 22:20:00 Test Item Value Reference Range Interpretation Comments Monocytes (test code = Monocytes) 1.0 2.0-12.0 [place] [address]-04-07 22:20:00 Test Item Value Reference Range Interpretation Comments Eosinophils (test code = 0.1 See_Comment [A utomated message] The Eosinophils) system which ge nerated this result tra nsmitted reference range : <=4.0. The reference r abdifatah was not used to int erpret this result as normal/abnormal . [facility] CypressLrfacznBPRMBXLCGJ7955-64-93 22:20:00 Test Item Value Reference Range Interpretation Comments Basophils (test code = 0.2 See_Comment [Aut omated message] The Basophils) system which ge nerated this result tra nsmitted reference range : <=1.0. The reference r abdifatah was not used to int erpret this result as normal/abnormal . [place]7592-04-07 22:20:00 Test Item Value Reference Range Interpretation Comments Neutrophils # (test code = Neutrophils 6.4 1.5-8.1 #) [facility] CypressJyuemjeNDKWQFTKTT4035-15-95 22:20:00 Test Item Value Reference Range Interpretation Comments Lymphocytes # (test code = Lymphocytes 0.6 1.0-5.5 #) [place] [address]-04-07 22:20:00 Test Item Value Reference Range Interpretation Comments Monocytes # (test code 0.1 See_Comment [Aut omated message] The = Monocytes #) system which generated this result tra nsmitted reference range : <=0.8. The reference r abdifatah was not used to int erpret this result as normal/abnormal . [facility] [id number] 22:20:00 Test Item Value Reference Range Interpretation Comments Glucose Lvl (test code = Glucose Lvl) 139 70-99 [facility] [id number] 22:20:00 Test Item Value Reference Range Interpretation Comments BUN (test code = BUN) 14 7-22 [facility] [id number] 22:20:00 Test Item Value Reference Range Interpretation Comments Creatinine Lvl (test code = Creatinine 0.59 0.50-1.40 Lvl) [facility] [id number] 22:20:00 Test Item Value Reference Range Interpretation Comments Sodium Lvl (test code = Sodium Lvl) 141 135-145 [facility] [id number] 22:20:00 Test Item Value Reference Range Interpretation Comments Potassium Lvl (test code = Potassium 4.0 3.5-5.1 Lvl) [facility] [id number] 22:20:00 Test Item Value Reference Range Interpretation Comments Chloride Lvl (test code = Chloride Lvl) 109 95-109 [facility] [id number] 22:20:00 Test Item Value Reference Range Interpretation Comments CO2 (test code = CO2) 25 24-32 [facility] [id number] 22:20:00 Test Item Value Reference Range Interpretation Comments Calcium Lvl (test code = Calcium Lvl) 9.3 8.5-10.5 [facility] [id number] 22:20:00 Test Item Value Reference Range Interpretation Comments AGAP (test code = AGAP) 11.0 10.0-20.0 [facility] [id number] 22:20:00 Test Item Value Reference Range Interpretation Comments eGFR (test code = eGFR) 103 [facility] CypressJpukdybHYXIMHSUEO8818-10-16 22:20:00 Test Item Value Reference Range Interpretation Comments WBC (test code = WBC) 7.2 3.7-10.4 [facility] CypressWqydxawFYTZLTXKWL1466-75-65 22:20:00 Test Item Value Reference Range Interpretation Comments RBC (test code = RBC) 4.48 4.20-5.40 [facility] CypressBqtluwiRDTOEIHJYZ2628-57-03 22:20:00 Test Item Value Reference Range Interpretation Comments Hgb (test code = Hgb) 12.9 12.0-16.0 [facility] CypressL[id number] 22:20:00 Test Item Value Reference Range Interpretation Comments Hct (test code = Hct) 39.5 36.0-48.0 [facility] CypressNdapeiiHEZNDBWIFB9779-08-35 22:20:00 Test Item Value Reference Range Interpretation Comments MCV (test code = MCV) 88.1 80.0-98.0 [facility] CypressOpljxjpCDXEUUBIFZ7184-23-46 22:20:00 Test Item Value Reference Range Interpretation Comments MCH (test code = MCH) 28.9 pg 27.0-31.0 [facility] C[id number] 22:20:00 Test Item Value Reference Range Interpretation Comments MCHC (test code = MCHC) 32.8 32.0-36.0 [facility] CypressUztgzhwJXIIBNPVOG3997-35-11 22:20:00 Test Item Value Reference Range Interpretation Comments RDW (test code = RDW) 14.5 11.5-14.5 [facility] CypressPddaeylUBYXTVUCKD7284-43-25 22:20:00 Test Item Value Reference Range Interpretation Comments Platelet (test code = Platelet) 286 133-450 [facility] CypressLhzgkreNEPSYQJOBE6564-75-27 22:20:00 Test Item Value Reference Range Interpretation Comments MPV (test code = MPV) 8.2 7.4-10.4 [place] 747592-04-07 22:20:00 Test Item Value Reference Range Interpretation Comments Segs (test code = Segs) 89.9 45.0-75.0 [place] 747592-04-07 22:20:00 Test Item Value Reference Range Interpretation Comments Lymphocytes (test code = Lymphocytes) 8.8 20.0-40.0 [place] [address]-04-07 22:20:00 Test Item Value Reference Range Interpretation Comments Monocytes (test code = Monocytes) 1.0 2.0-12.0 [place] [address]-04-07 22:20:00 Test Item Value Reference Range Interpretation Comments Eosinophils (test code = 0.1 See_Comment [A utomated message] The Eosinophils) system which ge nerated this result tra nsmitted reference range : <=4.0. The reference r abdifatah was not used to int erpret this result as normal/abnormal . [place] 747592-04-07 22:20:00 Test Item Value Reference Range Interpretation Comments Basophils (test code = 0.2 See_Comment [Aut omated message] The Basophils) system which ge nerated this result tra nsmitted reference range : <=1.0. The reference r abdifatah was not used to int erpret this result as normal/abnormal . [facility] [id number] 22:20:00 Test Item Value Reference Range Interpretation Comments Neutrophils # (test code = Neutrophils 6.4 1.5-8.1 #) [facility] CypressGftjsgoKBMHQQCPOY9727-39-73 22:20:00 Test Item Value Reference Range Interpretation Comments Lymphocytes # (test code = Lymphocytes 0.6 1.0-5.5 #) [place] 747592-04-07 22:20:00 Test Item Value Reference Range Interpretation Comments Monocytes # (test code 0.1 See_Comment [Aut omated message] The = Monocytes #) system which generated this result tra nsmitted reference range : <=0.8. The reference r abdifatah was not used to int erpret this result as normal/abnormal . [facility] [id number] 22:20:00 Test Item Value Reference Range Interpretation Comments Glucose Lvl (test code = Glucose Lvl) 139 70-99 [facility] [id number] 22:20:00 Test Item Value Reference Range Interpretation Comments BUN (test code = BUN) 14 7-22 [place] 663522-04-07 22:20:00 Test Item Value Reference Range Interpretation Comments Creatinine Lvl (test code = Creatinine 0.59 0.50-1.40 Lvl) [place] 663522-04-07 22:20:00 Test Item Value Reference Range Interpretation Comments Sodium Lvl (test code = Sodium Lvl) 141 135-145 [place] 663522-04-07 22:20:00 Test Item Value Reference Range Interpretation Comments Potassium Lvl (test code = Potassium 4.0 3.5-5.1 Lvl) [place] 663522-04-07 22:20:00 Test Item Value Reference Range Interpretation Comments Chloride Lvl (test code = Chloride Lvl) 109 95-109 [place] 663522-04-07 22:20:00 Test Item Value Reference Range Interpretation Comments CO2 (test code = CO2) 25 24-32 [place] 663522-04-07 22:20:00 Test Item Value Reference Range Interpretation Comments Calcium Lvl (test code = Calcium Lvl) 9.3 8.5-10.5 [facility]2022-04-07 22:20:00 Test Item Value Reference Range Interpretation Comments AGAP (test code = AGAP) 11.0 10.0-20.0 [place] 663522-04-07 22:20:00 Test Item Value Reference Range Interpretation Comments eGFR (test code = eGFR) 103 [place] 747592-04-07 22:20:00 Test Item Value Reference Range Interpretation Comments WBC (test code = WBC) 7.2 3.7-10.4 [place] 747592-04-07 22:20:00 Test Item Value Reference Range Interpretation Comments RBC (test code = RBC) 4.48 4.20-5.40 [place] 747592-04-07 22:20:00 Test Item Value Reference Range Interpretation Comments Hgb (test code = Hgb) 12.9 12.0-16.0 [place] [address]-04-07 22:20:00 Test Item Value Reference Range Interpretation Comments Hct (test code = Hct) 39.5 36.0-48.0 [place] [address]-04-07 22:20:00 Test Item Value Reference Range Interpretation Comments MCV (test code = MCV) 88.1 80.0-98.0 [place] [address]-04-07 22:20:00 Test Item Value Reference Range Interpretation Comments MCH (test code = MCH) 28.9 pg 27.0-31.0 [place] [address]-04-07 22:20:00 Test Item Value Reference Range Interpretation Comments MCHC (test code = MCHC) 32.8 32.0-36.0 [place] 747592-04-07 22:20:00 Test Item Value Reference Range Interpretation Comments RDW (test code = RDW) 14.5 11.5-14.5 [place] 747592-04-07 22:20:00 Test Item Value Reference Range Interpretation Comments Platelet (test code = Platelet) 286 133-450 [facility] Cypre[id number] 22:20:00 Test Item Value Reference Range Interpretation Comments MPV (test code = MPV) 8.2 7.4-10.4 [place] 747592-04-07 22:20:00 Test Item Value Reference Range Interpretation Comments Segs (test code = Segs) 89.9 45.0-75.0 [place] [address]-04-07 22:20:00 Test Item Value Reference Range Interpretation Comments Lymphocytes (test code = Lymphocytes) 8.8 20.0-40.0 [place] 747592-04-07 22:20:00 Test Item Value Reference Range Interpretation Comments Monocytes (test code = Monocytes) 1.0 2.0-12.0 [place] 747592-04-07 22:20:00 Test Item Value Reference Range Interpretation Comments Eosinophils (test code = 0.1 See_Comment [A utomated message] The Eosinophils) system which ge nerated this result tra nsmitted reference range : <=4.0. The reference r abdifatha was not used to int erpret this result as normal/abnormal . [place] [address]-04-07 22:20:00 Test Item Value Reference Range Interpretation Comments Basophils (test code = 0.2 See_Comment [Aut omated message] The Basophils) system which ge nerated this result tra nsmitted reference range : <=1.0. The reference r abdifatah was not used to int erpret this result as normal/abnormal . [place] 747592-04-07 22:20:00 Test Item Value Reference Range Interpretation Comments Neutrophils # (test code = Neutrophils 6.4 1.5-8.1 #) [place] [address]-04-07 22:20:00 Test Item Value Reference Range Interpretation Comments Lymphocytes # (test code = Lymphocytes 0.6 1.0-5.5 #) [place] [address]-04-07 22:20:00 Test Item Value Reference Range Interpretation Comments Monocytes # (test code 0.1 See_Comment [Aut omated message] The = Monocytes #) system which generated this result tra nsmitted reference range : <=0.8. The reference r abdifatah was not used to int erpret this result as normal/abnormal . [place] 663522-04-07 22:20:00 Test Item Value Reference Range Interpretation Comments Glucose Lvl (test code = Glucose Lvl) 139 70-99 [place] 663522-04-07 22:20:00 Test Item Value Reference Range Interpretation Comments BUN (test code = BUN) 14 7-22 [place] [address]-04-07 22:20:00 Test Item Value Reference Range Interpretation Comments Creatinine Lvl (test code = Creatinine 0.59 0.50-1.40 Lvl) [place] 663522-04-07 22:20:00 Test Item Value Reference Range Interpretation Comments Sodium Lvl (test code = Sodium Lvl) 141 135-145 [place] 663522-04-07 22:20:00 Test Item Value Reference Range Interpretation Comments Potassium Lvl (test code = Potassium 4.0 3.5-5.1 Lvl) [place] 663522-04-07 22:20:00 Test Item Value Reference Range Interpretation Comments Chloride Lvl (test code = Chloride Lvl) 109 95-109 [place] 663522-04-07 22:20:00 Test Item Value Reference Range Interpretation Comments CO2 (test code = CO2) 25 24-32 [place] 663522-04-07 22:20:00 Test Item Value Reference Range Interpretation Comments Calcium Lvl (test code = Calcium Lvl) 9.3 8.5-10.5 [facility]2022-04-07 22:20:00 Test Item Value Reference Range Interpretation Comments AGAP (test code = AGAP) 11.0 10.0-20.0 [facility]2022-04-07 22:20:00 Test Item Value Reference Range Interpretation Comments eGFR (test code = eGFR) 103 [facility]ressAcxrwmsMFIWABYVPK6817-75-03 22:20:00 Test Item Value Reference Range Interpretation Comments WBC (test code = WBC) 7.2 3.7-10.4 [facility] CypressLkorgqzMNDWYZGMPY5471-94-71 22:20:00 Test Item Value Reference Range Interpretation Comments RBC (test code = RBC) 4.48 4.20-5.40 [place]7592-04-07 22:20:00 Test Item Value Reference Range Interpretation Comments Hgb (test code = Hgb) 12.9 12.0-16.0 [facility] CypressWovshmePPTSRPMAOM5290-59-82 22:20:00 Test Item Value Reference Range Interpretation Comments Hct (test code = Hct) 39.5 36.0-48.0 [facility] CypressYjylkcoAKXFIAUURJ4608-27-64 22:20:00 Test Item Value Reference Range Interpretation Comments MCV (test code = MCV) 88.1 80.0-98.0 [facility] CypressCyxumcaAUZUDOIMSL3053-77-84 22:20:00 Test Item Value Reference Range Interpretation Comments MCH (test code = MCH) 28.9 pg 27.0-31.0 [facility] CypressTmwfzveCKLBMBCOST0572-92-68 22:20:00 Test Item Value Reference Range Interpretation Comments MCHC (test code = MCHC) 32.8 32.0-36.0 [facility] CypressCxhkwseKSNSGQKSXB6480-85-59 22:20:00 Test Item Value Reference Range Interpretation Comments RDW (test code = RDW) 14.5 11.5-14.5 [place] 747592-04-07 22:20:00 Test Item Value Reference Range Interpretation Comments Platelet (test code = Platelet) 286 133-450 [facility] CypressXpjptdxPXGGTMCRMH7763-53-14 22:20:00 Test Item Value Reference Range Interpretation Comments MPV (test code = MPV) 8.2 7.4-10.4 [facility] CypressFrevbrfGATMQGIVTG1467-09-04 22:20:00 Test Item Value Reference Range Interpretation Comments Segs (test code = Segs) 89.9 45.0-75.0 [place] 747592-04-07 22:20:00 Test Item Value Reference Range Interpretation Comments Lymphocytes (test code = Lymphocytes) 8.8 20.0-40.0 [place] 747592-04-07 22:20:00 Test Item Value Reference Range Interpretation Comments Monocytes (test code = Monocytes) 1.0 2.0-12.0 [place] 747592-04-07 22:20:00 Test Item Value Reference Range Interpretation Comments Eosinophils (test code = 0.1 See_Comment [A utomated message] The Eosinophils) system which ge nerated this result tra nsmitted reference range : <=4.0. The reference r abdifatah was not used to int erpret this result as normal/abnormal . [facility] CypressAfjfwyjWCCTLTTCMC9684-27-16 22:20:00 Test Item Value Reference Range Interpretation Comments Basophils (test code = 0.2 See_Comment [Aut omated message] The Basophils) system which ge nerated this result tra nsmitted reference range : <=1.0. The reference r abdifatah was not used to int erpret this result as normal/abnormal . [facility] CypressVgtgkaqFKFEIMHBNU3019-56-24 22:20:00 Test Item Value Reference Range Interpretation Comments Neutrophils # (test code = Neutrophils 6.4 1.5-8.1 #) [facility] CypressXswmwopZRNRHHJGQH9854-91-81 22:20:00 Test Item Value Reference Range Interpretation Comments Lymphocytes # (test code = Lymphocytes 0.6 1.0-5.5 #) [place]7592-04-07 22:20:00 Test Item Value Reference Range Interpretation Comments Monocytes # (test code 0.1 See_Comment [Aut omated message] The = Monocytes #) system which generated this result tra nsmitted reference range : <=0.8. The reference r abdifatah was not used to int erpret this result as normal/abnormal . [facility]ressF[facility] [id number] 22:20:00 Test Item Value Reference Range Interpretation Comments Glucose Lvl (test code = Glucose Lvl) 139 70-99 [place] 663522-04-07 22:20:00 Test Item Value Reference Range Interpretation Comments BUN (test code = BUN) 14 7-22 [place] 663522-04-07 22:20:00 Test Item Value Reference Range Interpretation Comments Creatinine Lvl (test code = Creatinine 0.59 0.50-1.40 Lvl) [place] 663522-04-07 22:20:00 Test Item Value Reference Range Interpretation Comments Sodium Lvl (test code = Sodium Lvl) 141 135-145 [place] 663522-04-07 22:20:00 Test Item Value Reference Range Interpretation Comments Potassium Lvl (test code = Potassium 4.0 3.5-5.1 Lvl) [place] 663522-04-07 22:20:00 Test Item Value Reference Range Interpretation Comments Chloride Lvl (test code = Chloride Lvl) 109 95-109 [place] 663522-04-07 22:20:00 Test Item Value Reference Range Interpretation Comments CO2 (test code = CO2) 25 24-32 [place] 663522-04-07 22:20:00 Test Item Value Reference Range Interpretation Comments Calcium Lvl (test code = Calcium Lvl) 9.3 8.5-10.5 [place] 663522-04-07 22:20:00 Test Item Value Reference Range Interpretation Comments AGAP (test code = AGAP) 11.0 10.0-20.0 [place] 663522-04-07 22:20:00 Test Item Value Reference Range Interpretation Comments eGFR (test code = eGFR) 103 [place] 747592-04-07 22:20:00 Test Item Value Reference Range Interpretation Comments WBC (test code = WBC) 7.2 3.7-10.4 [place] [address]-04-07 22:20:00 Test Item Value Reference Range Interpretation Comments RBC (test code = RBC) 4.48 4.20-5.40 [place] 747592-04-07 22:20:00 Test Item Value Reference Range Interpretation Comments Hgb (test code = Hgb) 12.9 12.0-16.0 [place] [address]-04-07 22:20:00 Test Item Value Reference Range Interpretation Comments Hct (test code = Hct) 39.5 36.0-48.0 [place] 747592-04-07 22:20:00 Test Item Value Reference Range Interpretation Comments MCV (test code = MCV) 88.1 80.0-98.0 [place] 747592-04-07 22:20:00 Test Item Value Reference Range Interpretation Comments MCH (test code = MCH) 28.9 pg 27.0-31.0 [place] [address]-04-07 22:20:00 Test Item Value Reference Range Interpretation Comments MCHC (test code = MCHC) 32.8 32.0-36.0 [place] 747592-04-07 22:20:00 Test Item Value Reference Range Interpretation Comments RDW (test code = RDW) 14.5 11.5-14.5 [place] 747592-04-07 22:20:00 Test Item Value Reference Range Interpretation Comments Platelet (test code = Platelet) 286 133-450 [place] 747592-04-07 22:20:00 Test Item Value Reference Range Interpretation Comments MPV (test code = MPV) 8.2 7.4-10.4 [place] 747592-04-07 22:20:00 Test Item Value Reference Range Interpretation Comments Segs (test code = Segs) 89.9 45.0-75.0 [place] 747592-04-07 22:20:00 Test Item Value Reference Range Interpretation Comments Lymphocytes (test code = Lymphocytes) 8.8 20.0-40.0 [place] 747592-04-07 22:20:00 Test Item Value Reference Range Interpretation Comments Monocytes (test code = Monocytes) 1.0 2.0-12.0 [place] 747592-04-07 22:20:00 Test Item Value Reference Range Interpretation Comments Eosinophils (test code = 0.1 See_Comment [A utomated message] The Eosinophils) system which ge nerated this result tra nsmitted reference range : <=4.0. The reference r abdifatah was not used to int erpret this result as normal/abnormal . [place] [address]-04-07 22:20:00 Test Item Value Reference Range Interpretation Comments Basophils (test code = 0.2 See_Comment [Aut omated message] The Basophils) system which ge nerated this result tra nsmitted reference range : <=1.0. The reference r abdifatah was not used to int erpret this result as normal/abnormal . [place] [address]-04-07 22:20:00 Test Item Value Reference Range Interpretation Comments Neutrophils # (test code = Neutrophils 6.4 1.5-8.1 #) [place] 747592-04-07 22:20:00 Test Item Value Reference Range Interpretation Comments Lymphocytes # (test code = Lymphocytes 0.6 1.0-5.5 #) [place] 747592-04-07 22:20:00 Test Item Value Reference Range Interpretation Comments Monocytes # (test code 0.1 See_Comment [Aut omated message] The = Monocytes #) system which generated this result tra nsmitted reference range : <=0.8. The reference r abdifatah was not used to int erpret this result as normal/abnormal . [place] 663522-04-07 22:20:00 Test Item Value Reference Range Interpretation Comments Glucose Lvl (test code = Glucose Lvl) 139 70-99 [place] 663522-04-07 22:20:00 Test Item Value Reference Range Interpretation Comments BUN (test code = BUN) 14 7-22 [place] 663522-04-07 22:20:00 Test Item Value Reference Range Interpretation Comments Creatinine Lvl (test code = Creatinine 0.59 0.50-1.40 Lvl) [place] 663522-04-07 22:20:00 Test Item Value Reference Range Interpretation Comments Sodium Lvl (test code = Sodium Lvl) 141 135-145 [place] 663522-04-07 22:20:00 Test Item Value Reference Range Interpretation Comments Potassium Lvl (test code = Potassium 4.0 3.5-5.1 Lvl) [place] 663522-04-07 22:20:00 Test Item Value Reference Range Interpretation Comments Chloride Lvl (test code = Chloride Lvl) 109 95-109 [place] 663522-04-07 22:20:00 Test Item Value Reference Range Interpretation Comments CO2 (test code = CO2) 25 24-32 [place] 663522-04-07 22:20:00 Test Item Value Reference Range Interpretation Comments Calcium Lvl (test code = Calcium Lvl) 9.3 8.5-10.5 [place] 663522-04-07 22:20:00 Test Item Value Reference Range Interpretation Comments AGAP (test code = AGAP) 11.0 10.0-20.0 [facility]2022-04-07 22:20:00 Test Item Value Reference Range Interpretation Comments eGFR (test code = eGFR) 103 [facility] CypressQccpdxrEJRTVGKCWB3387-52-69 22:20:00 Test Item Value Reference Range Interpretation Comments WBC (test code = WBC) 7.2 3.7-10.4 [facility]ikoBJNLLOCPXF4860-20-79 22:20:00 Test Item Value Reference Range Interpretation Comments RBC (test code = RBC) 4.48 4.20-5.40 [facility] HospitalVwvlwxjRLDRNOFZDK9989-40-10 22:20:00 Test Item Value Reference Range Interpretation Comments Hgb (test code = Hgb) 12.9 12.0-16.0 [facility] CypressGfhbyvmBJOICRVKBW3516-06-13 22:20:00 Test Item Value Reference Range Interpretation Comments Hct (test code = Hct) 39.5 36.0-48.0 [facility] HospitalWeidbipJAPNBTYPQX4779-35-79 22:20:00 Test Item Value Reference Range Interpretation Comments MCV (test code = MCV) 88.1 80.0-98.0 [facility] HospitalFijkwvmSNFRXRIMPI1207-77-32 22:20:00 Test Item Value Reference Range Interpretation Comments MCH (test code = MCH) 28.9 pg 27.0-31.0 [facility] HospitalJtzutfeRMYLBMHIJW7321-43-15 22:20:00 Test Item Value Reference Range Interpretation Comments MCHC (test code = MCHC) 32.8 32.0-36.0 [facility]ressSoafdflGHHOFODGIC6362-05-45 22:20:00 Test Item Value Reference Range Interpretation Comments RDW (test code = RDW) 14.5 11.5-14.5 [place]7592-04-07 22:20:00 Test Item Value Reference Range Interpretation Comments Platelet (test code = Platelet) 286 133-450 [facility]ressWkpufxwEANTUZDMQJ7863-02-84 22:20:00 Test Item Value Reference Range Interpretation Comments MPV (test code = MPV) 8.2 7.4-10.4 [facility] CypressJoihmlrQNMMQHRUIB2888-96-29 22:20:00 Test Item Value Reference Range Interpretation Comments Segs (test code = Segs) 89.9 45.0-75.0 [place] [address]-04-07 22:20:00 Test Item Value Reference Range Interpretation Comments Lymphocytes (test code = Lymphocytes) 8.8 20.0-40.0 [place] [address]-04-07 22:20:00 Test Item Value Reference Range Interpretation Comments Monocytes (test code = Monocytes) 1.0 2.0-12.0 [place] [address]-04-07 22:20:00 Test Item Value Reference Range Interpretation Comments Eosinophils (test code = 0.1 See_Comment [A utomated message] The Eosinophils) system which ge nerated this result tra nsmitted reference range : <=4.0. The reference r abdifatah was not used to int erpret this result as normal/abnormal . [place]7592-04-07 22:20:00 Test Item Value Reference Range Interpretation Comments Basophils (test code = 0.2 See_Comment [Aut omated message] The Basophils) system which ge nerated this result tra nsmitted reference range : <=1.0. The reference r abdifatah was not used to int erpret this result as normal/abnormal . [facility] CypressGhnuypeZLONWKBCFH8075-09-16 22:20:00 Test Item Value Reference Range Interpretation Comments Neutrophils # (test code = Neutrophils 6.4 1.5-8.1 #) [place]7592-04-07 22:20:00 Test Item Value Reference Range Interpretation Comments Lymphocytes # (test code = Lymphocytes 0.6 1.0-5.5 #) [place]7592-04-07 22:20:00 Test Item Value Reference Range Interpretation Comments Monocytes # (test code 0.1 See_Comment [Aut omated message] The = Monocytes #) system which generated this result tra nsmitted reference range : <=0.8. The reference r abdifatah was not used to int erpret this result as normal/abnormal . [facility] [id number] 22:20:00 Test Item Value Reference Range Interpretation Comments Glucose Lvl (test code = Glucose Lvl) 139 70-99 [place] 663522-04-07 22:20:00 Test Item Value Reference Range Interpretation Comments BUN (test code = BUN) 14 7-22 [facility] [id number] 22:20:00 Test Item Value Reference Range Interpretation Comments Creatinine Lvl (test code = Creatinine 0.59 0.50-1.40 Lvl) [facility]2022-04-07 22:20:00 Test Item Value Reference Range Interpretation Comments Sodium Lvl (test code = Sodium Lvl) 141 135-145 [place] 663522-04-07 22:20:00 Test Item Value Reference Range Interpretation Comments Potassium Lvl (test code = Potassium 4.0 3.5-5.1 Lvl) [place] 663522-04-07 22:20:00 Test Item Value Reference Range Interpretation Comments Chloride Lvl (test code = Chloride Lvl) 109 95-109 [place] 663522-04-07 22:20:00 Test Item Value Reference Range Interpretation Comments CO2 (test code = CO2) 25 24-32 [place] 663522-04-07 22:20:00 Test Item Value Reference Range Interpretation Comments Calcium Lvl (test code = Calcium Lvl) 9.3 8.5-10.5 [place] 663522-04-07 22:20:00 Test Item Value Reference Range Interpretation Comments AGAP (test code = AGAP) 11.0 10.0-20.0 [facility]2022-04-07 22:20:00 Test Item Value Reference Range Interpretation Comments eGFR (test code = eGFR) 103 [facility] CypressVfjrkumAWKSUWUBLU6811-82-22 22:20:00 Test Item Value Reference Range Interpretation Comments WBC (test code = WBC) 7.2 3.7-10.4 [place]7592-04-07 22:20:00 Test Item Value Reference Range Interpretation Comments RBC (test code = RBC) 4.48 4.20-5.40 [place] 747592-04-07 22:20:00 Test Item Value Reference Range Interpretation Comments Hgb (test code = Hgb) 12.9 12.0-16.0 [place]7592-04-07 22:20:00 Test Item Value Reference Range Interpretation Comments Hct (test code = Hct) 39.5 36.0-48.0 [place] 747592-04-07 22:20:00 Test Item Value Reference Range Interpretation Comments MCV (test code = MCV) 88.1 80.0-98.0 [place] [address]-04-07 22:20:00 Test Item Value Reference Range Interpretation Comments MCH (test code = MCH) 28.9 pg 27.0-31.0 [facility] CypressUutidpgHEADMLRHGT9020-85-76 22:20:00 Test Item Value Reference Range Interpretation Comments MCHC (test code = MCHC) 32.8 32.0-36.0 [facility] CypressQhslcpxINBOGTKNDN6470-62-15 22:20:00 Test Item Value Reference Range Interpretation Comments RDW (test code = RDW) 14.5 11.5-14.5 [place]7592-04-07 22:20:00 Test Item Value Reference Range Interpretation Comments Platelet (test code = Platelet) 286 133-450 [facility] CypressZnlkdsiJEZVVSFEEG6155-80-65 22:20:00 Test Item Value Reference Range Interpretation Comments MPV (test code = MPV) 8.2 7.4-10.4 [facility] CypressIdnrqvtAYSCBJCVPM4676-94-85 22:20:00 Test Item Value Reference Range Interpretation Comments Segs (test code = Segs) 89.9 45.0-75.0 [facility] CypressZwdvfkkXAEOEHMNTD6687-96-10 22:20:00 Test Item Value Reference Range Interpretation Comments Lymphocytes (test code = Lymphocytes) 8.8 20.0-40.0 [place]7592-04-07 22:20:00 Test Item Value Reference Range Interpretation Comments Monocytes (test code = Monocytes) 1.0 2.0-12.0 [facility] CypressFegoxpiPFMIQVRTFA1835-33-14 22:20:00 Test Item Value Reference Range Interpretation Comments Eosinophils (test code = 0.1 See_Comment [A utomated message] The Eosinophils) system which ge nerated this result tra nsmitted reference range : <=4.0. The reference r abdifatah was not used to int erpret this result as normal/abnormal . [facility] CypressIxelbdyLQVIFJDAEI8002-96-51 22:20:00 Test Item Value Reference Range Interpretation Comments Basophils (test code = 0.2 See_Comment [Aut omated message] The Basophils) system which ge nerated this result tra nsmitted reference range : <=1.0. The reference r abdifatah was not used to int erpret this result as normal/abnormal . [place]7592-04-07 22:20:00 Test Item Value Reference Range Interpretation Comments Neutrophils # (test code = Neutrophils 6.4 1.5-8.1 #) [facility] CypressVllodwnRCASHXUFSD4237-49-33 22:20:00 Test Item Value Reference Range Interpretation Comments Lymphocytes # (test code = Lymphocytes 0.6 1.0-5.5 #) [place]7592-04-07 22:20:00 Test Item Value Reference Range Interpretation Comments Monocytes # (test code 0.1 See_Comment [Aut omated message] The = Monocytes #) system which generated this result tra nsmitted reference range : <=0.8. The reference r abdifatah was not used to int erpret this result as normal/abnormal . [place] 663522-04-07 22:20:00 Test Item Value Reference Range Interpretation Comments Glucose Lvl (test code = Glucose Lvl) 139 70-99 [place] 663522-04-07 22:20:00 Test Item Value Reference Range Interpretation Comments BUN (test code = BUN) 14 7-22 [place] 663522-04-07 22:20:00 Test Item Value Reference Range Interpretation Comments Creatinine Lvl (test code = Creatinine 0.59 0.50-1.40 Lvl) [place] 663522-04-07 22:20:00 Test Item Value Reference Range Interpretation Comments Sodium Lvl (test code = Sodium Lvl) 141 135-145 [place] 663522-04-07 22:20:00 Test Item Value Reference Range Interpretation Comments Potassium Lvl (test code = Potassium 4.0 3.5-5.1 Lvl) [place] 663522-04-07 22:20:00 Test Item Value Reference Range Interpretation Comments Chloride Lvl (test code = Chloride Lvl) 109 95-109 [place] 663522-04-07 22:20:00 Test Item Value Reference Range Interpretation Comments CO2 (test code = CO2) 25 24-32 [place] 663522-04-07 22:20:00 Test Item Value Reference Range Interpretation Comments Calcium Lvl (test code = Calcium Lvl) 9.3 8.5-10.5 [place] 663522-04-07 22:20:00 Test Item Value Reference Range Interpretation Comments AGAP (test code = AGAP) 11.0 10.0-20.0 [facility]2022-04-07 22:20:00 Test Item Value Reference Range Interpretation Comments eGFR (test code = eGFR) 103 [facility] CypressHxvwyiiHMFEJEUFRE1966-31-31 22:20:00 Test Item Value Reference Range Interpretation Comments WBC (test code = WBC) 7.2 3.7-10.4 [facility] CypressPqczvzgIMMPCXBPMR6409-00-98 22:20:00 Test Item Value Reference Range Interpretation Comments RBC (test code = RBC) 4.48 4.20-5.40 [place]7592-04-07 22:20:00 Test Item Value Reference Range Interpretation Comments Hgb (test code = Hgb) 12.9 12.0-16.0 [place]7592-04-07 22:20:00 Test Item Value Reference Range Interpretation Comments Hct (test code = Hct) 39.5 36.0-48.0 [facility] CypressLxfwuhlBJKNQHOVFG6022-73-04 22:20:00 Test Item Value Reference Range Interpretation Comments MCV (test code = MCV) 88.1 80.0-98.0 [place]7592-04-07 22:20:00 Test Item Value Reference Range Interpretation Comments MCH (test code = MCH) 28.9 pg 27.0-31.0 [facility] CypressVwuqknpZOSXEQTVCK7464-92-96 22:20:00 Test Item Value Reference Range Interpretation Comments MCHC (test code = MCHC) 32.8 32.0-36.0 [facility] CypressZnrbvgxGVODPVOSKA9155-95-05 22:20:00 Test Item Value Reference Range Interpretation Comments RDW (test code = RDW) 14.5 11.5-14.5 [place]7592-04-07 22:20:00 Test Item Value Reference Range Interpretation Comments Platelet (test code = Platelet) 286 133-450 [facility] CypressHdektqhRSUJGTJWLK3066-95-93 22:20:00 Test Item Value Reference Range Interpretation Comments MPV (test code = MPV) 8.2 7.4-10.4 [place]7592-04-07 22:20:00 Test Item Value Reference Range Interpretation Comments Segs (test code = Segs) 89.9 45.0-75.0 [facility] CypressJzwkasiGFZUXVUDSU0031-16-57 22:20:00 Test Item Value Reference Range Interpretation Comments Lymphocytes (test code = Lymphocytes) 8.8 20.0-40.0 [place] [address]-04-07 22:20:00 Test Item Value Reference Range Interpretation Comments Monocytes (test code = Monocytes) 1.0 2.0-12.0 [place]7592-04-07 22:20:00 Test Item Value Reference Range Interpretation Comments Eosinophils (test code = Eosinophils) 0.1 <=4.0 [place]7592-04-07 22:20:00 Test Item Value Reference Range Interpretation Comments Basophils (test code = Basophils) 0.2 <=1.0 [place] [address]-04-07 22:20:00 Test Item Value Reference Range Interpretation Comments Neutrophils # (test code = Neutrophils 6.4 1.5-8.1 #) [place]7592-04-07 22:20:00 Test Item Value Reference Range Interpretation Comments Lymphocytes # (test code = Lymphocytes 0.6 1.0-5.5 #) [place]7592-04-07 22:20:00 Test Item Value Reference Range Interpretation Comments Monocytes # (test code = Monocytes #) 0.1 <=0.8 [place] 663522-04-07 22:20:00 Test Item Value Reference Range Interpretation Comments Glucose Lvl (test code = Glucose Lvl) 139 70-99 [facility]2022-04-07 22:20:00 Test Item Value Reference Range Interpretation Comments BUN (test code = BUN) 14 7-22 [place] 663522-04-07 22:20:00 Test Item Value Reference Range Interpretation Comments Creatinine Lvl (test code = Creatinine 0.59 0.50-1.40 Lvl) [place] 663522-04-07 22:20:00 Test Item Value Reference Range Interpretation Comments Sodium Lvl (test code = Sodium Lvl) 141 135-145 [place] 663522-04-07 22:20:00 Test Item Value Reference Range Interpretation Comments Potassium Lvl (test code = Potassium 4.0 3.5-5.1 Lvl) [place] 663522-04-07 22:20:00 Test Item Value Reference Range Interpretation Comments Chloride Lvl (test code = Chloride Lvl) 109 95-109 [place] 663522-04-07 22:20:00 Test Item Value Reference Range Interpretation Comments CO2 (test code = CO2) 25 24-32 [place] 663522-04-07 22:20:00 Test Item Value Reference Range Interpretation Comments Calcium Lvl (test code = Calcium Lvl) 9.3 8.5-10.5 [facility]2022-04-07 22:20:00 Test Item Value Reference Range Interpretation Comments AGAP (test code = AGAP) 11.0 10.0-20.0 [facility]2022-04-07 22:20:00 Test Item Value Reference Range Interpretation Comments eGFR (test code = eGFR) 103 [facility] CypressUxyuwokCNNZRLJMDB1595-74-94 22:20:00 Test Item Value Reference Range Interpretation Comments WBC (test code = WBC) 7.2 3.7-10.4 [place]7592-04-07 22:20:00 Test Item Value Reference Range Interpretation Comments RBC (test code = RBC) 4.48 4.20-5.40 [place]7592-04-07 22:20:00 Test Item Value Reference Range Interpretation Comments Hgb (test code = Hgb) 12.9 12.0-16.0 [place]7592-04-07 22:20:00 Test Item Value Reference Range Interpretation Comments Hct (test code = Hct) 39.5 36.0-48.0 [place]7592-04-07 22:20:00 Test Item Value Reference Range Interpretation Comments MCV (test code = MCV) 88.1 80.0-98.0 [place]7592-04-07 22:20:00 Test Item Value Reference Range Interpretation Comments MCH (test code = MCH) 28.9 pg 27.0-31.0 [place] [address]-04-07 22:20:00 Test Item Value Reference Range Interpretation Comments MCHC (test code = MCHC) 32.8 32.0-36.0 [place]7592-04-07 22:20:00 Test Item Value Reference Range Interpretation Comments RDW (test code = RDW) 14.5 11.5-14.5 [place]7592-04-07 22:20:00 Test Item Value Reference Range Interpretation Comments Platelet (test code = Platelet) 286 133-450 [facility] CypressU[id number] 22:20:00 Test Item Value Reference Range Interpretation Comments MPV (test code = MPV) 8.2 7.4-10.4 [place]7592-04-07 22:20:00 Test Item Value Reference Range Interpretation Comments Segs (test code = Segs) 89.9 45.0-75.0 [place] 747592-04-07 22:20:00 Test Item Value Reference Range Interpretation Comments Lymphocytes (test code = Lymphocytes) 8.8 20.0-40.0 [place]7592-04-07 22:20:00 Test Item Value Reference Range Interpretation Comments Monocytes (test code = Monocytes) 1.0 2.0-12.0 [place] 747592-04-07 22:20:00 Test Item Value Reference Range Interpretation Comments Eosinophils (test code = Eosinophils) 0.1 <=4.0 [place]7592-04-07 22:20:00 Test Item Value Reference Range Interpretation Comments Basophils (test code = Basophils) 0.2 <=1.0 [place] 747592-04-07 22:20:00 Test Item Value Reference Range Interpretation Comments Neutrophils # (test code = Neutrophils 6.4 1.5-8.1 #) [facility] Cypre[id number] 22:20:00 Test Item Value Reference Range Interpretation Comments Lymphocytes # (test code = Lymphocytes 0.6 1.0-5.5 #) [place] 747592-04-07 22:20:00 Test Item Value Reference Range Interpretation Comments Monocytes # (test code = Monocytes #) 0.1 <=0.8 [facility]2022-04-07 22:20:00 Test Item Value Reference Range Interpretation Comments Glucose Lvl (test code = Glucose Lvl) 139 70-99 [facility]2022-04-07 22:20:00 Test Item Value Reference Range Interpretation Comments BUN (test code = BUN) 14 7-22 [place] 663522-04-07 22:20:00 Test Item Value Reference Range Interpretation Comments Creatinine Lvl (test code = Creatinine 0.59 0.50-1.40 Lvl) [facility]2022-04-07 22:20:00 Test Item Value Reference Range Interpretation Comments Sodium Lvl (test code = Sodium Lvl) 141 135-145 [place] 663522-04-07 22:20:00 Test Item Value Reference Range Interpretation Comments Potassium Lvl (test code = Potassium 4.0 3.5-5.1 Lvl) [place] 663522-04-07 22:20:00 Test Item Value Reference Range Interpretation Comments Chloride Lvl (test code = Chloride Lvl) 109 95-109 [place] 663522-04-07 22:20:00 Test Item Value Reference Range Interpretation Comments CO2 (test code = CO2) 25 24-32 [place] 663522-04-07 22:20:00 Test Item Value Reference Range Interpretation Comments Calcium Lvl (test code = Calcium Lvl) 9.3 8.5-10.5 [place] 663522-04-07 22:20:00 Test Item Value Reference Range Interpretation Comments AGAP (test code = AGAP) 11.0 10.0-20.0 [place] 663522-04-07 22:20:00 Test Item Value Reference Range Interpretation Comments eGFR (test code = eGFR) 103 [place] 747592-04-07 22:20:00 Test Item Value Reference Range Interpretation Comments WBC (test code = WBC) 7.2 3.7-10.4 [place] 747592-04-07 22:20:00 Test Item Value Reference Range Interpretation Comments RBC (test code = RBC) 4.48 4.20-5.40 [place] 747592-04-07 22:20:00 Test Item Value Reference Range Interpretation Comments Hgb (test code = Hgb) 12.9 12.0-16.0 [place] [address]-04-07 22:20:00 Test Item Value Reference Range Interpretation Comments Hct (test code = Hct) 39.5 36.0-48.0 [place] [address]-04-07 22:20:00 Test Item Value Reference Range Interpretation Comments MCV (test code = MCV) 88.1 80.0-98.0 [place] [address]-04-07 22:20:00 Test Item Value Reference Range Interpretation Comments MCH (test code = MCH) 28.9 pg 27.0-31.0 [place] 747592-04-07 22:20:00 Test Item Value Reference Range Interpretation Comments MCHC (test code = MCHC) 32.8 32.0-36.0 [place] 747592-04-07 22:20:00 Test Item Value Reference Range Interpretation Comments RDW (test code = RDW) 14.5 11.5-14.5 [place] 747592-04-07 22:20:00 Test Item Value Reference Range Interpretation Comments Platelet (test code = Platelet) 286 133-450 [facility] CypressBjsbiehPQUQVRMLVC6811-02-56 22:20:00 Test Item Value Reference Range Interpretation Comments MPV (test code = MPV) 8.2 7.4-10.4 [place] 747592-04-07 22:20:00 Test Item Value Reference Range Interpretation Comments Segs (test code = Segs) 89.9 45.0-75.0 [place] 747592-04-07 22:20:00 Test Item Value Reference Range Interpretation Comments Lymphocytes (test code = Lymphocytes) 8.8 20.0-40.0 [place] 747592-04-07 22:20:00 Test Item Value Reference Range Interpretation Comments Monocytes (test code = Monocytes) 1.0 2.0-12.0 [facility] CypressGffunifJETJJBJORM5101-71-75 22:20:00 Test Item Value Reference Range Interpretation Comments Eosinophils (test code = 0.1 See_Comment [A utomated message] The Eosinophils) system which ge nerated this result tra nsmitted reference range : <=4.0. The reference r abdifatah was not used to int erpret this result as normal/abnormal . [facility] CypressZmoixlfPERWAUOJTE1189-16-53 22:20:00 Test Item Value Reference Range Interpretation Comments Basophils (test code = 0.2 See_Comment [Aut omated message] The Basophils) system which ge nerated this result tra nsmitted reference range : <=1.0. The reference r abdifatah was not used to int erpret this result as normal/abnormal . [place]7592-04-07 22:20:00 Test Item Value Reference Range Interpretation Comments Neutrophils # (test code = Neutrophils 6.4 1.5-8.1 #) [facility] CypressYgnnozdSAVLUZPBTI5336-49-83 22:20:00 Test Item Value Reference Range Interpretation Comments Lymphocytes # (test code = Lymphocytes 0.6 1.0-5.5 #) [facility] CypressAdbplqkSYVSMTBTSJ8943-75-34 22:20:00 Test Item Value Reference Range Interpretation Comments Monocytes # (test code 0.1 See_Comment [Aut omated message] The = Monocytes #) system which generated this result tra nsmitted reference range : <=0.8. The reference r abdifatah was not used to int erpret this result as normal/abnormal . [facility]2022-04-07 22:20:00 Test Item Value Reference Range Interpretation Comments Glucose Lvl (test code = Glucose Lvl) 139 70-99 [facility]2022-04-07 22:20:00 Test Item Value Reference Range Interpretation Comments BUN (test code = BUN) 14 7-22 [place] 663522-04-07 22:20:00 Test Item Value Reference Range Interpretation Comments Creatinine Lvl (test code = Creatinine 0.59 0.50-1.40 Lvl) [facility]2022-04-07 22:20:00 Test Item Value Reference Range Interpretation Comments Sodium Lvl (test code = Sodium Lvl) 141 135-145 [facility]2022-04-07 22:20:00 Test Item Value Reference Range Interpretation Comments Potassium Lvl (test code = Potassium 4.0 3.5-5.1 Lvl) [facility]2022-04-07 22:20:00 Test Item Value Reference Range Interpretation Comments Chloride Lvl (test code = Chloride Lvl) 109 95-109 [place] 663522-04-07 22:20:00 Test Item Value Reference Range Interpretation Comments CO2 (test code = CO2) 25 24-32 [place] 663522-04-07 22:20:00 Test Item Value Reference Range Interpretation Comments Calcium Lvl (test code = Calcium Lvl) 9.3 8.5-10.5 [place] 663522-04-07 22:20:00 Test Item Value Reference Range Interpretation Comments AGAP (test code = AGAP) 11.0 10.0-20.0 [place] 663522-04-07 22:20:00 Test Item Value Reference Range Interpretation Comments eGFR (test code = eGFR) 103 [facility] CypressCfxvlhpLWYUGVPFWC3231-44-57 22:20:00 Test Item Value Reference Range Interpretation Comments WBC (test code = WBC) 7.2 3.7-10.4 [place] 747592-04-07 22:20:00 Test Item Value Reference Range Interpretation Comments RBC (test code = RBC) 4.48 4.20-5.40 [place] 747592-04-07 22:20:00 Test Item Value Reference Range Interpretation Comments Hgb (test code = Hgb) 12.9 12.0-16.0 [place] [address]-04-07 22:20:00 Test Item Value Reference Range Interpretation Comments Hct (test code = Hct) 39.5 36.0-48.0 [place] 747592-04-07 22:20:00 Test Item Value Reference Range Interpretation Comments MCV (test code = MCV) 88.1 80.0-98.0 [place]7592-04-07 22:20:00 Test Item Value Reference Range Interpretation Comments MCH (test code = MCH) 28.9 pg 27.0-31.0 [place]7592-04-07 22:20:00 Test Item Value Reference Range Interpretation Comments MCHC (test code = MCHC) 32.8 32.0-36.0 [facility] CypressD[id number] 22:20:00 Test Item Value Reference Range Interpretation Comments RDW (test code = RDW) 14.5 11.5-14.5 [facility] CypressMhsxtmuRGMRHSFPTG0362-09-48 22:20:00 Test Item Value Reference Range Interpretation Comments Platelet (test code = Platelet) 286 133-450 [facility] CypressOsfgrqrHFPTSRHDLY5989-74-48 22:20:00 Test Item Value Reference Range Interpretation Comments MPV (test code = MPV) 8.2 7.4-10.4 [place]7592-04-07 22:20:00 Test Item Value Reference Range Interpretation Comments Segs (test code = Segs) 89.9 45.0-75.0 [place] 747592-04-07 22:20:00 Test Item Value Reference Range Interpretation Comments Lymphocytes (test code = Lymphocytes) 8.8 20.0-40.0 [place] 747592-04-07 22:20:00 Test Item Value Reference Range Interpretation Comments Monocytes (test code = Monocytes) 1.0 2.0-12.0 [place] [address]-04-07 22:20:00 Test Item Value Reference Range Interpretation Comments Eosinophils (test code = Eosinophils) 0.1 <=4.0 [place]7592-04-07 22:20:00 Test Item Value Reference Range Interpretation Comments Basophils (test code = Basophils) 0.2 <=1.0 [place] 747592-04-07 22:20:00 Test Item Value Reference Range Interpretation Comments Neutrophils # (test code = Neutrophils 6.4 1.5-8.1 #) [place] 747592-04-07 22:20:00 Test Item Value Reference Range Interpretation Comments Lymphocytes # (test code = Lymphocytes 0.6 1.0-5.5 #) [place] 747592-04-07 22:20:00 Test Item Value Reference Range Interpretation Comments Monocytes # (test code = Monocytes #) 0.1 <=0.8 [place] 663522-04-07 22:20:00 Test Item Value Reference Range Interpretation Comments Glucose Lvl (test code = Glucose Lvl) 139 70-99 [facility]2022-04-07 22:20:00 Test Item Value Reference Range Interpretation Comments BUN (test code = BUN) 14 7-22 [facility]2022-04-07 22:20:00 Test Item Value Reference Range Interpretation Comments Creatinine Lvl (test code = Creatinine 0.59 0.50-1.40 Lvl) [facility]2022-04-07 22:20:00 Test Item Value Reference Range Interpretation Comments Sodium Lvl (test code = Sodium Lvl) 141 135-145 [place] 663522-04-07 22:20:00 Test Item Value Reference Range Interpretation Comments Potassium Lvl (test code = Potassium 4.0 3.5-5.1 Lvl) [place] 663522-04-07 22:20:00 Test Item Value Reference Range Interpretation Comments Chloride Lvl (test code = Chloride Lvl) 109 95-109 [place] 663522-04-07 22:20:00 Test Item Value Reference Range Interpretation Comments CO2 (test code = CO2) 25 24-32 [place] 663522-04-07 22:20:00 Test Item Value Reference Range Interpretation Comments Calcium Lvl (test code = Calcium Lvl) 9.3 8.5-10.5 [facility]2022-04-07 22:20:00 Test Item Value Reference Range Interpretation Comments AGAP (test code = AGAP) 11.0 10.0-20.0 [facility]2022-04-07 22:20:00 Test Item Value Reference Range Interpretation Comments eGFR (test code = eGFR) 103 [facility] CypressEninfsiCTTNUHYJJC5644-29-77 22:20:00 Test Item Value Reference Range Interpretation Comments WBC (test code = WBC) 7.2 3.7-10.4 [place]7592-04-07 22:20:00 Test Item Value Reference Range Interpretation Comments RBC (test code = RBC) 4.48 4.20-5.40 [place]7592-04-07 22:20:00 Test Item Value Reference Range Interpretation Comments Hgb (test code = Hgb) 12.9 12.0-16.0 [place]7592-04-07 22:20:00 Test Item Value Reference Range Interpretation Comments Hct (test code = Hct) 39.5 36.0-48.0 [place] 747592-04-07 22:20:00 Test Item Value Reference Range Interpretation Comments MCV (test code = MCV) 88.1 80.0-98.0 [place] [address]-04-07 22:20:00 Test Item Value Reference Range Interpretation Comments MCH (test code = MCH) 28.9 pg 27.0-31.0 [place] 747592-04-07 22:20:00 Test Item Value Reference Range Interpretation Comments MCHC (test code = MCHC) 32.8 32.0-36.0 [place] 747592-04-07 22:20:00 Test Item Value Reference Range Interpretation Comments RDW (test code = RDW) 14.5 11.5-14.5 [place]7592-04-07 22:20:00 Test Item Value Reference Range Interpretation Comments Platelet (test code = Platelet) 286 133-450 [facility] CypressN[id number] 22:20:00 Test Item Value Reference Range Interpretation Comments MPV (test code = MPV) 8.2 7.4-10.4 [place] [address]-04-07 22:20:00 Test Item Value Reference Range Interpretation Comments Segs (test code = Segs) 89.9 45.0-75.0 [place] [address]-04-07 22:20:00 Test Item Value Reference Range Interpretation Comments Lymphocytes (test code = Lymphocytes) 8.8 20.0-40.0 [place] [address]-04-07 22:20:00 Test Item Value Reference Range Interpretation Comments Monocytes (test code = Monocytes) 1.0 2.0-12.0 [place] [address]-04-07 22:20:00 Test Item Value Reference Range Interpretation Comments Eosinophils (test code = Eosinophils) 0.1 <=4.0 [place] [address]-04-07 22:20:00 Test Item Value Reference Range Interpretation Comments Basophils (test code = Basophils) 0.2 <=1.0 [place] [address]-04-07 22:20:00 Test Item Value Reference Range Interpretation Comments Neutrophils # (test code = Neutrophils 6.4 1.5-8.1 #) [place]7592-04-07 22:20:00 Test Item Value Reference Range Interpretation Comments Lymphocytes # (test code = Lymphocytes 0.6 1.0-5.5 #) [place]7592-04-07 22:20:00 Test Item Value Reference Range Interpretation Comments Monocytes # (test code = Monocytes #) 0.1 <=0.8 [place] 663522-04-07 22:20:00 Test Item Value Reference Range Interpretation Comments Glucose Lvl (test code = Glucose Lvl) 139 70-99 [place] 663522-04-07 22:20:00 Test Item Value Reference Range Interpretation Comments BUN (test code = BUN) 14 7-22 [place] 663522-04-07 22:20:00 Test Item Value Reference Range Interpretation Comments Creatinine Lvl (test code = Creatinine 0.59 0.50-1.40 Lvl) [place] 663522-04-07 22:20:00 Test Item Value Reference Range Interpretation Comments Sodium Lvl (test code = Sodium Lvl) 141 135-145 [place] 663522-04-07 22:20:00 Test Item Value Reference Range Interpretation Comments Potassium Lvl (test code = Potassium 4.0 3.5-5.1 Lvl) [facility] [id number] 22:20:00 Test Item Value Reference Range Interpretation Comments Chloride Lvl (test code = Chloride Lvl) 109 95-109 [facility] [id number] 22:20:00 Test Item Value Reference Range Interpretation Comments CO2 (test code = CO2) 25 24-32 [facility] [id number] 22:20:00 Test Item Value Reference Range Interpretation Comments Calcium Lvl (test code = Calcium Lvl) 9.3 8.5-10.5 [facility] [id number] 22:20:00 Test Item Value Reference Range Interpretation Comments AGAP (test code = AGAP) 11.0 10.0-20.0 [facility] [id number] 22:20:00 Test Item Value Reference Range Interpretation Comments eGFR (test code = eGFR) 103 [facility] CypressKvgmznrHELXRYIITE2483-75-69 22:20:00 Test Item Value Reference Range Interpretation Comments WBC (test code = WBC) 7.2 3.7-10.4 [place]7592-04-07 22:20:00 Test Item Value Reference Range Interpretation Comments RBC (test code = RBC) 4.48 4.20-5.40 [place] 747592-04-07 22:20:00 Test Item Value Reference Range Interpretation Comments Hgb (test code = Hgb) 12.9 12.0-16.0 [place] 747592-04-07 22:20:00 Test Item Value Reference Range Interpretation Comments Hct (test code = Hct) 39.5 36.0-48.0 [place] [address]-04-07 22:20:00 Test Item Value Reference Range Interpretation Comments MCV (test code = MCV) 88.1 80.0-98.0 [place] [address]-04-07 22:20:00 Test Item Value Reference Range Interpretation Comments MCH (test code = MCH) 28.9 pg 27.0-31.0 [place] 747592-04-07 22:20:00 Test Item Value Reference Range Interpretation Comments MCHC (test code = MCHC) 32.8 32.0-36.0 [facility] [id number] 22:20:00 Test Item Value Reference Range Interpretation Comments RDW (test code = RDW) 14.5 11.5-14.5 [facility] Cy[id number] 22:20:00 Test Item Value Reference Range Interpretation Comments Platelet (test code = Platelet) 286 133-450 [facility] CypressJrqbnsgTHUOWLWHXP6812-13-50 22:20:00 Test Item Value Reference Range Interpretation Comments MPV (test code = MPV) 8.2 7.4-10.4 [place]7592-04-07 22:20:00 Test Item Value Reference Range Interpretation Comments Segs (test code = Segs) 89.9 45.0-75.0 [place] 747592-04-07 22:20:00 Test Item Value Reference Range Interpretation Comments Lymphocytes (test code = Lymphocytes) 8.8 20.0-40.0 [facility] CypressU[id number] 22:20:00 Test Item Value Reference Range Interpretation Comments Monocytes (test code = Monocytes) 1.0 2.0-12.0 [facility] CypressDtmksvuBHMAEFZTUJ0838-11-24 22:20:00 Test Item Value Reference Range Interpretation Comments Eosinophils (test code = 0.1 See_Comment [A utomated message] The Eosinophils) system which ge nerated this result tra nsmitted reference range : <=4.0. The reference r abdifatah was not used to int erpret this result as normal/abnormal . [facility] C[id number] 22:20:00 Test Item Value Reference Range Interpretation Comments Basophils (test code = 0.2 See_Comment [Aut omated message] The Basophils) system which ge nerated this result tra nsmitted reference range : <=1.0. The reference r abdifatah was not used to int erpret this result as normal/abnormal . [facility] CypressXikdvilGTLYRDQBSW7831-05-45 22:20:00 Test Item Value Reference Range Interpretation Comments Neutrophils # (test code = Neutrophils 6.4 1.5-8.1 #) [facility] CypressQ[id number] 22:20:00 Test Item Value Reference Range Interpretation Comments Lymphocytes # (test code = Lymphocytes 0.6 1.0-5.5 #) [place]7592-04-07 22:20:00 Test Item Value Reference Range Interpretation Comments Monocytes # (test code 0.1 See_Comment [Aut omated message] The = Monocytes #) system which generated this result tra nsmitted reference range : <=0.8. The reference r abdifatah was not used to int erpret this result as normal/abnormal . [facility]2022-04-07 22:20:00 Test Item Value Reference Range Interpretation Comments Glucose Lvl (test code = Glucose Lvl) 139 70-99 [place] 663522-04-07 22:20:00 Test Item Value Reference Range Interpretation Comments BUN (test code = BUN) 14 7-22 [place] 663522-04-07 22:20:00 Test Item Value Reference Range Interpretation Comments Creatinine Lvl (test code = Creatinine 0.59 0.50-1.40 Lvl) [facility]2022-04-07 22:20:00 Test Item Value Reference Range Interpretation Comments Sodium Lvl (test code = Sodium Lvl) 141 135-145 [place] 663522-04-07 22:20:00 Test Item Value Reference Range Interpretation Comments Potassium Lvl (test code = Potassium 4.0 3.5-5.1 Lvl) [facility]2022-04-07 22:20:00 Test Item Value Reference Range Interpretation Comments Chloride Lvl (test code = Chloride Lvl) 109 95-109 [place] 663522-04-07 22:20:00 Test Item Value Reference Range Interpretation Comments CO2 (test code = CO2) 25 24-32 [place] 663522-04-07 22:20:00 Test Item Value Reference Range Interpretation Comments Calcium Lvl (test code = Calcium Lvl) 9.3 8.5-10.5 [place] 663522-04-07 22:20:00 Test Item Value Reference Range Interpretation Comments AGAP (test code = AGAP) 11.0 10.0-20.0 [place] 663522-04-07 22:20:00 Test Item Value Reference Range Interpretation Comments eGFR (test code = eGFR) 103 [facility] CypressGqpudocDZKZYLKQTD1026-21-70 22:20:00 Test Item Value Reference Range Interpretation Comments WBC (test code = WBC) 7.2 3.7-10.4 [place] [address]-04-07 22:20:00 Test Item Value Reference Range Interpretation Comments RBC (test code = RBC) 4.48 4.20-5.40 [place]7592-04-07 22:20:00 Test Item Value Reference Range Interpretation Comments Hgb (test code = Hgb) 12.9 12.0-16.0 [place]7592-04-07 22:20:00 Test Item Value Reference Range Interpretation Comments Hct (test code = Hct) 39.5 36.0-48.0 [place]7592-04-07 22:20:00 Test Item Value Reference Range Interpretation Comments MCV (test code = MCV) 88.1 80.0-98.0 [place]7592-04-07 22:20:00 Test Item Value Reference Range Interpretation Comments MCH (test code = MCH) 28.9 pg 27.0-31.0 [place]7592-04-07 22:20:00 Test Item Value Reference Range Interpretation Comments MCHC (test code = MCHC) 32.8 32.0-36.0 [place]7592-04-07 22:20:00 Test Item Value Reference Range Interpretation Comments RDW (test code = RDW) 14.5 11.5-14.5 [place]7592-04-07 22:20:00 Test Item Value Reference Range Interpretation Comments Platelet (test code = Platelet) 286 133-450 [facility] CypressLbjejzlXRXMVMGWCI7703-77-81 22:20:00 Test Item Value Reference Range Interpretation Comments MPV (test code = MPV) 8.2 7.4-10.4 [place]7592-04-07 22:20:00 Test Item Value Reference Range Interpretation Comments Segs (test code = Segs) 89.9 45.0-75.0 [place] [address]-04-07 22:20:00 Test Item Value Reference Range Interpretation Comments Lymphocytes (test code = Lymphocytes) 8.8 20.0-40.0 [place]7592-04-07 22:20:00 Test Item Value Reference Range Interpretation Comments Monocytes (test code = Monocytes) 1.0 2.0-12.0 [place]7592-04-07 22:20:00 Test Item Value Reference Range Interpretation Comments Eosinophils (test code = 0.1 See_Comment [A utomated message] The Eosinophils) system which ge nerated this result tra nsmitted reference range : <=4.0. The reference r abdifatah was not used to int erpret this result as normal/abnormal . [place]7592-04-07 22:20:00 Test Item Value Reference Range Interpretation Comments Basophils (test code = 0.2 See_Comment [Aut omated message] The Basophils) system which ge nerated this result tra nsmitted reference range : <=1.0. The reference r abdifatah was not used to int erpret this result as normal/abnormal . [place]7592-04-07 22:20:00 Test Item Value Reference Range Interpretation Comments Neutrophils # (test code = Neutrophils 6.4 1.5-8.1 #) [facility] CypressFgoqiouGYBZSWGMQE7793-32-22 22:20:00 Test Item Value Reference Range Interpretation Comments Lymphocytes # (test code = Lymphocytes 0.6 1.0-5.5 #) [place]7592-04-07 22:20:00 Test Item Value Reference Range Interpretation Comments Monocytes # (test code 0.1 See_Comment [Aut omated message] The = Monocytes #) system which generated this result tra nsmitted reference range : <=0.8. The reference r abdifatah was not used to int erpret this result as normal/abnormal . [facility]2022-04-07 22:20:00 Test Item Value Reference Range Interpretation Comments Glucose Lvl (test code = Glucose Lvl) 139 70-99 [facility] [id number] 22:20:00 Test Item Value Reference Range Interpretation Comments BUN (test code = BUN) 14 7-22 [place] 663522-04-07 22:20:00 Test Item Value Reference Range Interpretation Comments Creatinine Lvl (test code = Creatinine 0.59 0.50-1.40 Lvl) [facility]2022-04-07 22:20:00 Test Item Value Reference Range Interpretation Comments Sodium Lvl (test code = Sodium Lvl) 141 135-145 [facility] [id number] 22:20:00 Test Item Value Reference Range Interpretation Comments Potassium Lvl (test code = Potassium 4.0 3.5-5.1 Lvl) [facility]2022-04-07 22:20:00 Test Item Value Reference Range Interpretation Comments Chloride Lvl (test code = Chloride Lvl) 109 95-109 [facility]2022-04-07 22:20:00 Test Item Value Reference Range Interpretation Comments CO2 (test code = CO2) 25 24-32 [place] 663522-04-07 22:20:00 Test Item Value Reference Range Interpretation Comments Calcium Lvl (test code = Calcium Lvl) 9.3 8.5-10.5 [place] 663522-04-07 22:20:00 Test Item Value Reference Range Interpretation Comments AGAP (test code = AGAP) 11.0 10.0-20.0 [facility]2022-04-07 22:20:00 Test Item Value Reference Range Interpretation Comments eGFR (test code = eGFR) 103 [facility] CypressFsezebxATMQQQIERO4257-37-14 22:20:00 Test Item Value Reference Range Interpretation Comments WBC (test code = WBC) 7.2 3.7-10.4 [place] 747592-04-07 22:20:00 Test Item Value Reference Range Interpretation Comments RBC (test code = RBC) 4.48 4.20-5.40 [place] 747592-04-07 22:20:00 Test Item Value Reference Range Interpretation Comments Hgb (test code = Hgb) 12.9 12.0-16.0 [place] 747592-04-07 22:20:00 Test Item Value Reference Range Interpretation Comments Hct (test code = Hct) 39.5 36.0-48.0 [place] 747592-04-07 22:20:00 Test Item Value Reference Range Interpretation Comments MCV (test code = MCV) 88.1 80.0-98.0 [place] 747592-04-07 22:20:00 Test Item Value Reference Range Interpretation Comments MCH (test code = MCH) 28.9 pg 27.0-31.0 [place] 747592-04-07 22:20:00 Test Item Value Reference Range Interpretation Comments MCHC (test code = MCHC) 32.8 32.0-36.0 [place] 747592-04-07 22:20:00 Test Item Value Reference Range Interpretation Comments RDW (test code = RDW) 14.5 11.5-14.5 [facility] CypressRxcawicVPWZYPHEUU4233-77-28 22:20:00 Test Item Value Reference Range Interpretation Comments Platelet (test code = Platelet) 286 133-450 [place] 747592-04-07 22:20:00 Test Item Value Reference Range Interpretation Comments MPV (test code = MPV) 8.2 7.4-10.4 [place] 747592-04-07 22:20:00 Test Item Value Reference Range Interpretation Comments Segs (test code = Segs) 89.9 45.0-75.0 [place] 747592-04-07 22:20:00 Test Item Value Reference Range Interpretation Comments Lymphocytes (test code = Lymphocytes) 8.8 20.0-40.0 [place] 747592-04-07 22:20:00 Test Item Value Reference Range Interpretation Comments Monocytes (test code = Monocytes) 1.0 2.0-12.0 [place] 747592-04-07 22:20:00 Test Item Value Reference Range Interpretation Comments Eosinophils (test code = 0.1 See_Comment [A utomated message] The Eosinophils) system which ge nerated this result tra nsmitted reference range : <=4.0. The reference r abdifatah was not used to int erpret this result as normal/abnormal . [facility] CypressFznhlhmGWGKWHDEHZ6973-14-68 22:20:00 Test Item Value Reference Range Interpretation Comments Basophils (test code = 0.2 See_Comment [Aut omated message] The Basophils) system which ge nerated this result tra nsmitted reference range : <=1.0. The reference r abdifatah was not used to int erpret this result as normal/abnormal . [place] 747592-04-07 22:20:00 Test Item Value Reference Range Interpretation Comments Neutrophils # (test code = Neutrophils 6.4 1.5-8.1 #) [facility] CypressQnaqtetNMDUSACJSU5760-03-20 22:20:00 Test Item Value Reference Range Interpretation Comments Lymphocytes # (test code = Lymphocytes 0.6 1.0-5.5 #) [place] 747592-04-07 22:20:00 Test Item Value Reference Range Interpretation Comments Monocytes # (test code 0.1 See_Comment [Aut omated message] The = Monocytes #) system which generated this result tra nsmitted reference range : <=0.8. The reference r abdifatah was not used to int erpret this result as normal/abnormal . [facility] [id number] 20:30:00 Test Item Value Reference Range Interpretation Comments ABO/Rh (test code = ABO/Rh) A [facility] [employer] [facility] [id number] 20:30:00 Test Item Value Reference Range Interpretation Comments Antibody Scrn (test Negative (08/02/21 3:30 code = Antibody Scrn) PM) [facility] [id number] 20:30:00 Test Item Value Reference Range Interpretation Comments ABO/Rh (test code = ABO/Rh) A [facility] [employer] [facility] [id number] 20:30:00 Test Item Value Reference Range Interpretation Comments Antibody Scrn (test Negative (08/02/21 3:30 code = Antibody Scrn) PM) [facility] [id number] 20:30:00 Test Item Value Reference Range Interpretation Comments ABO/Rh (test code = ABO/Rh) A [facility] [employer] [id number] 20:30:00 Test Item Value Reference Range Interpretation Comments Antibody Scrn (test Negative (08/02/21 3:30 code = Antibody Scrn) PM) [facility] [id number] 20:30:00 Test Item Value Reference Range Interpretation Comments ABO/Rh (test code = ABO/Rh) A [facility] [employer] [id number] 20:30:00 Test Item Value Reference Range Interpretation Comments Antibody Scrn (test Negative (08/02/21 3:30 code = Antibody Scrn) PM) [facility] [employer] [id number] 20:30:00 Test Item Value Reference Range Interpretation Comments ABO/Rh (test code = ABO/Rh) A [facility] [employer] [id number] 20:30:00 Test Item Value Reference Range Interpretation Comments Antibody Scrn (test Negative (08/02/21 3:30 code = Antibody Scrn) PM) [facility] [id number] 20:30:00 Test Item Value Reference Range Interpretation Comments ABO/Rh (test code = ABO/Rh) A [facility] [id number] 20:30:00 Test Item Value Reference Range Interpretation Comments Antibody Scrn (test Negative (08/02/21 3:30 code = Antibody Scrn) PM) [facility] [id number] 20:30:00 Test Item Value Reference Range Interpretation Comments ABO/Rh (test code = ABO/Rh) A [facility] [id number] 20:30:00 Test Item Value Reference Range Interpretation Comments Antibody Scrn (test Negative (08/02/21 3:30 code = Antibody Scrn) PM) [facility] [id number] 20:30:00 Test Item Value Reference Range Interpretation Comments ABO/Rh (test code = ABO/Rh) A [facility] [id number] 20:30:00 Test Item Value Reference Range Interpretation Comments Antibody Scrn (test Negative (08/02/21 3:30 code = Antibody Scrn) PM) [facility] [id number] 20:30:00 Test Item Value Reference Range Interpretation Comments ABO/Rh (test code = ABO/Rh) A [facility] [id number] 20:30:00 Test Item Value Reference Range Interpretation Comments Antibody Scrn (test Negative (08/02/21 3:30 code = Antibody Scrn) PM) [facility] [id number] 20:30:00 Test Item Value Reference Range Interpretation Comments ABO/Rh (test code = ABO/Rh) A [facility] [id number] 20:30:00 Test Item Value Reference Range Interpretation Comments Antibody Scrn (test Negative (08/02/21 3:30 code = Antibody Scrn) PM) [facility] [id number] 20:30:00 Test Item Value Reference Range Interpretation Comments ABO/Rh (test code = ABO/Rh) A [facility] [id number] 20:30:00 Test Item Value Reference Range Interpretation Comments Antibody Scrn (test Negative (08/02/21 3:30 code = Antibody Scrn) PM) [facility] [id number] 20:30:00 Test Item Value Reference Range Interpretation Comments ABO/Rh (test code = ABO/Rh) A [facility] [id number] 20:30:00 Test Item Value Reference Range Interpretation Comments Antibody Scrn (test Negative (08/02/21 3:30 code = Antibody Scrn) PM) [facility] [id number] 20:30:00 Test Item Value Reference Range Interpretation Comments ABO/Rh (test code = ABO/Rh) A [facility] [id number] 20:30:00 Test Item Value Reference Range Interpretation Comments Antibody Scrn (test Negative (08/02/21 3:30 code = Antibody Scrn) PM) [facility] [id number] 20:30:00 Test Item Value Reference Range Interpretation Comments ABO/Rh (test code = ABO/Rh) A [facility] [id number] 20:30:00 Test Item Value Reference Range Interpretation Comments Antibody Scrn (test Negative (08/02/21 3:30 code = Antibody Scrn) PM) [facility] [id number] 20:30:00 Test Item Value Reference Range Interpretation Comments ABO/Rh (test code = ABO/Rh) A [facility] [id number] 20:30:00 Test Item Value Reference Range Interpretation Comments Antibody Scrn (test Negative (08/02/21 3:30 code = Antibody Scrn) PM) [facility] [id number] 20:30:00 Test Item Value Reference Range Interpretation Comments ABO/Rh (test code = ABO/Rh) A [facility] [id number] 20:30:00 Test Item Value Reference Range Interpretation Comments Antibody Scrn (test Negative (08/02/21 3:30 code = Antibody Scrn) PM) [facility] 14:05:00 Test Item Value Reference Range Interpretation Comments Coronavirus (COVID-19) Not Detected (08/02/21 KASSY (test code = 9:05 AM) Coronavirus (COVID-19) KASSY) [facility]DqvmzajDGBCCDHTBU1679-68-28 14:05:00 Test Item Value Reference Range Interpretation Comments Coronavirus (COVID-19) Not Detected (08/02/21 KASSY (test code = 9:05 AM) Coronavirus (COVID-19) KASSY) [place] [id number] 14:05:00 Test Item Value Reference Range Interpretation Comments Coronavirus (COVID-19) Not Detected (08/02/21 KASSY (test code = 9:05 AM) Coronavirus (COVID-19) KASSY) [place] [address]-04-07 14:05:00 Test Item Value Reference Range Interpretation Comments Coronavirus (COVID-19) Not Detected (08/02/21 KASSY (test code = 9:05 AM) Coronavirus (COVID-19) KASSY) [place] [address]-04-07 14:05:00 Test Item Value Reference Range Interpretation Comments Coronavirus (COVID-19) Not Detected (08/02/21 KASSY (test code = 9:05 AM) Coronavirus (COVID-19) KASSY) [place] [address]-04-07 14:05:00 Test Item Value Reference Range Interpretation Comments Coronavirus (COVID-19) Not Detected (08/02/21 KASSY (test code = 9:05 AM) Coronavirus (COVID-19) KASSY) [place] [address]-04-07 14:05:00 Test Item Value Reference Range Interpretation Comments Coronavirus (COVID-19) Not Detected (08/02/21 KASSY (test code = 9:05 AM) Coronavirus (COVID-19) KASSY) [place] [address]-04-07 14:05:00 Test Item Value Reference Range Interpretation Comments Coronavirus (COVID-19) Not Detected (08/02/21 KASSY (test code = 9:05 AM) Coronavirus (COVID-19) KASSY) [place] [address]-04-07 14:05:00 Test Item Value Reference Range Interpretation Comments Coronavirus (COVID-19) Not Detected (08/02/21 KASSY (test code = 9:05 AM) Coronavirus (COVID-19) KASSY) [place] [address]-04-07 14:05:00 Test Item Value Reference Range Interpretation Comments Coronavirus (COVID-19) Not Detected (08/02/21 KASSY (test code = 9:05 AM) Coronavirus (COVID-19) KASSY) [facility] HospitalFzhxwewUUPNYMQKFJ0540-49-14 14:05:00 Test Item Value Reference Range Interpretation Comments Coronavirus (COVID-19) Not Detected (08/02/21 KASSY (test code = 9:05 AM) Coronavirus (COVID-19) KASSY) [facility] HospitalDrjqmtrKLVETNHGRM8646-70-83 14:05:00 Test Item Value Reference Range Interpretation Comments Coronavirus (COVID-19) Not Detected (08/02/21 KASSY (test code = 9:05 AM) Coronavirus (COVID-19) KASSY) [facility] HospitalSwciemtEMWJDSCFVM4293-99-01 14:05:00 Test Item Value Reference Range Interpretation Comments Coronavirus (COVID-19) Not Detected (08/02/21 KASSY (test code = 9:05 AM) Coronavirus (COVID-19) KASSY) [facility] HospitalXpkedrtROLOHIDIAI6139-59-74 14:05:00 Test Item Value Reference Range Interpretation Comments Coronavirus (COVID-19) Not Detected (08/02/21 KASSY (test code = 9:05 AM) Coronavirus (COVID-19) KASSY) [facility] HospitalGmovijpVAJMPQICWM9842-88-98 14:05:00 Test Item Value Reference Range Interpretation Comments Coronavirus (COVID-19) Not Detected (08/02/21 KASSY (test code = 9:05 AM) Coronavirus (COVID-19) KASSY) [facility] HospitalLmclrfzOEAVVRYBEH8930-00-10 14:05:00 Test Item Value Reference Range Interpretation Comments Coronavirus (COVID-19) Not Detected (08/02/21 KASSY (test code = 9:05 AM) Coronavirus (COVID-19) KASSY) [facility]ressSbjtsfoYMNAPEXMPM5658-13-96 11:25:00 Test Item Value Reference Range Interpretation Comments D-Dimer (test code = D-Dimer) 1.25 [facility]ressSnkvidqBFONANABPE6524-45-80 11:25:00 Test Item Value Reference Range Interpretation Comments D-Dimer (test code = D-Dimer) 1.25 [facility]ressNlklmwrKUEEYDIFPF0097-40-05 11:25:00 Test Item Value Reference Range Interpretation Comments D-Dimer (test code = D-Dimer) 1.25 [facility] CypressEthtuntSBZPYOEXGV0626-11-27 11:25:00 Test Item Value Reference Range Interpretation Comments D-Dimer (test code = D-Dimer) 1.25 [facility] CypressBdtprgoPVWOTJQCHM6328-06-26 11:25:00 Test Item Value Reference Range Interpretation Comments D-Dimer (test code = D-Dimer) 1.25 [facility] CypressJpphitsOPWCJSRQQS9810-96-08 11:25:00 Test Item Value Reference Range Interpretation Comments D-Dimer (test code = D-Dimer) 1.25 [facility] CypressUoryakzNDLBSWDFUM6892-55-78 11:25:00 Test Item Value Reference Range Interpretation Comments D-Dimer (test code = D-Dimer) 1.25 [facility] CypressDhdtotqEBITSKSUHB3420-94-78 11:25:00 Test Item Value Reference Range Interpretation Comments D-Dimer (test code = D-Dimer) 1.25 [facility] CypressRuazfpiDUMRHGUTZG9140-77-68 11:25:00 Test Item Value Reference Range Interpretation Comments D-Dimer (test code = D-Dimer) 1.25 [facility] CypressTdicvizJANHDTQBCH2863-78-41 11:25:00 Test Item Value Reference Range Interpretation Comments D-Dimer (test code = D-Dimer) 1.25 [facility] CypressIqqtwllOEWQFGPAOZ7708-16-96 11:25:00 Test Item Value Reference Range Interpretation Comments D-Dimer (test code = D-Dimer) 1.25 [facility] CypressWtssovwNMSVVRXOSA8064-09-85 11:25:00 Test Item Value Reference Range Interpretation Comments D-Dimer (test code = D-Dimer) 1.25 [facility] CypressFzcqfhiQAKFACUGHO7781-71-23 11:25:00 Test Item Value Reference Range Interpretation Comments D-Dimer (test code = D-Dimer) 1.25 [facility] CypressPxhiojrZQPMYWXELP4206-43-67 11:25:00 Test Item Value Reference Range Interpretation Comments D-Dimer (test code = D-Dimer) 1.25 [facility] CypressBoxjspvOHWGXLRORB9224-67-84 10:16:00 Test Item Value Reference Range Interpretation Comments RDW (test code = RDW) 17.1 11.5-14.5 [facility] CypressByfnxgsIWCREJNHUK1616-16-32 10:16:00 Test Item Value Reference Range Interpretation Comments Platelet (test code = Platelet) 448 133-450 [facility] CypressCofdmuxJWUSNDHCLN3132-66-50 10:16:00 Test Item Value Reference Range Interpretation Comments MPV (test code = MPV) 7.7 7.4-10.4 [facility] CypressIbwzgvlLTOZYHXXOZ1521-19-83 10:16:00 Test Item Value Reference Range Interpretation Comments Segs (test code = Segs) 48.0 45.0-75.0 [facility] CypressMzwptprWMFZIZOZVZ6563-28-84 10:16:00 Test Item Value Reference Range Interpretation Comments Lymphocytes (test code = Lymphocytes) 38.5 20.0-40.0 [facility] CypressEfgbzgvSPDAIDRJTJ8008-24-64 10:16:00 Test Item Value Reference Range Interpretation Comments Monocytes (test code = Monocytes) 9.7 2.0-12.0 [facility] CypressThbjkexPKJXLCYMXR1965 10:16:00 Test Item Value Reference Range Interpretation Comments Eosinophils (test code = Eosinophils) 2.2 <=4.0 [facility] CypressIiddwuqKGJEYUXCCB5723-96-28 10:16:00 Test Item Value Reference Range Interpretation Comments Basophils (test code = Basophils) 1.6 <=1.0 [facility] CypressNqzcmlpFVCGOERFYQ4720-04-22 10:16:00 Test Item Value Reference Range Interpretation Comments Neutrophils # (test code = Neutrophils 3.6 1.5-8.1 #) [facility] CypressZbjlqyeRVLWCSYOAH2528-68-78 10:16:00 Test Item Value Reference Range Interpretation Comments Lymphocytes # (test code = Lymphocytes 2.9 1.0-5.5 #) [facility] CypressDgghwhpCIFNODITTR8515-74-34 10:16:00 Test Item Value Reference Range Interpretation Comments Monocytes # (test code = Monocytes #) 0.7 <=0.8 [facility] CypressGvnxviiSNOLRAUWMB2773-71-97 10:16:00 Test Item Value Reference Range Interpretation Comments Eosinophils # (test code = Eosinophils 0.2 <=0.5 #) [facility] CypressXpmyxavEMXVMGISRU8610-64-08 10:16:00 Test Item Value Reference Range Interpretation Comments Basophils # (test code = Basophils #) 0.1 <=0.2 [facility] HospitalYfgijrlYZORFNLJRV9348-11-37 10:16:00 Test Item Value Reference Range Interpretation Comments Coronavirus (COVID-19) Not Detected KASSY (test code = (03/17/21 4:16 AM) Coronavirus (COVID-19) KASSY) [facility] CypressCARDIMACKINAC STRAITS HOSPITALNUSOQQQ4464-27-13 10:16:00 Test Item Value Reference Range Interpretation Comments Troponin-I (test code = Troponin-I) no gt <=0.40 [facility] CypressCARDIAC PDDLCKP7720-14-00 10:16:00 Test Item Value Reference Range Interpretation Comments BNP (test code = BNP) 6 [facility]2021-11-20 10:16:00 Test Item Value Reference Range Interpretation Comments Glucose Lvl (test code = Glucose Lvl) 94 70-99 [facility]2021-11-20 10:16:00 Test Item Value Reference Range Interpretation Comments BUN (test code = BUN) 23 7-22 [facility]2021-11-20 10:16:00 Test Item Value Reference Range Interpretation Comments Creatinine Lvl (test code = Creatinine 0.50 0.50-1.40 Lvl) [facility]2021-11-20 10:16:00 Test Item Value Reference Range Interpretation Comments Sodium Lvl (test code = Sodium Lvl) 140 135-145 [facility]2021-11-20 10:16:00 Test Item Value Reference Range Interpretation Comments Potassium Lvl (test code = Potassium 4.0 3.5-5.1 Lvl) [facility]2021-11-20 10:16:00 Test Item Value Reference Range Interpretation Comments Chloride Lvl (test code = Chloride Lvl) 108 95-109 [facility]2021-11-20 10:16:00 Test Item Value Reference Range Interpretation Comments CO2 (test code = CO2) 27 24-32 [facility]2021-11-20 10:16:00 Test Item Value Reference Range Interpretation Comments Calcium Lvl (test code = Calcium Lvl) 11.1 8.5-10.5 [facility]2021-11-20 10:16:00 Test Item Value Reference Range Interpretation Comments Total Protein (test code = Total 9.0 6.4-8.4 Protein) [facility]2021-11-20 10:16:00 Test Item Value Reference Range Interpretation Comments Albumin Lvl (test code = Albumin Lvl) 3.0 3.5-5.0 [facility]2021-11-20 10:16:00 Test Item Value Reference Range Interpretation Comments ALT (test code = ALT) 26 <=65 [facility]2021-11-20 10:16:00 Test Item Value Reference Range Interpretation Comments AST (test code = AST) 35 <=37 [facility]2021-11-20 10:16:00 Test Item Value Reference Range Interpretation Comments Alk Phos (test code = Alk Phos) 109 39-136 [place] 663521-11-20 10:16:00 Test Item Value Reference Range Interpretation Comments Bili Total (test code = Bili Total) 0.5 0.2-1.3 [place] 663521-11-20 10:16:00 Test Item Value Reference Range Interpretation Comments AGAP (test code = AGAP) 9.0 10.0-20.0 [place] 663521-11-20 10:16:00 Test Item Value Reference Range Interpretation Comments B/C Ratio (test code = B/C Ratio) 46 1 6-25 [place] 663521-11-20 10:16:00 Test Item Value Reference Range Interpretation Comments Globulin (test code = Globulin) 6.0 2.7-4.2 [place] 663521-11-20 10:16:00 Test Item Value Reference Range Interpretation Comments A/G Ratio (test code = A/G Ratio) 0.5 1 0.7-1.6 [place] 663521-11-20 10:16:00 Test Item Value Reference Range Interpretation Comments eGFR (test code = eGFR) 109 [facility] CypressVaymylgURYCSFMMFU3556-70-74 10:16:00 Test Item Value Reference Range Interpretation Comments WBC (test code = WBC) 7.6 3.7-10.4 [place] 747591-11-20 10:16:00 Test Item Value Reference Range Interpretation Comments RBC (test code = RBC) 4.19 4.20-5.40 [place] 747591-11-20 10:16:00 Test Item Value Reference Range Interpretation Comments Hgb (test code = Hgb) 11.0 12.0-16.0 [place] [address]-11-20 10:16:00 Test Item Value Reference Range Interpretation Comments Hct (test code = Hct) 34.5 36.0-48.0 [place] 747591-11-20 10:16:00 Test Item Value Reference Range Interpretation Comments MCV (test code = MCV) 82.2 80.0-98.0 [facility] CypressIfdiuzrBIVKSORDHB6809-01-92 10:16:00 Test Item Value Reference Range Interpretation Comments MCH (test code = MCH) 26.3 pg 27.0-31.0 [facility] CypressRxruufiIFJFCUIJPV8290-59-76 10:16:00 Test Item Value Reference Range Interpretation Comments MCHC (test code = MCHC) 32.0 32.0-36.0 [facility] [id number] 10:16:00 Test Item Value Reference Range Interpretation Comments Troponin-I (test code no gt See_Comment [Auto mated message] The = Troponin-I) system which g enerated this result transmit gill reference range : <=0.40. The reference r abdifatah was not used to interpr et this result as len l/abnormal. [facility] [id number] 10:16:00 Test Item Value Reference Range Interpretation Comments BNP (test code = BNP) 6 [facility]2021-11-20 10:16:00 Test Item Value Reference Range Interpretation Comments Glucose Lvl (test code = Glucose Lvl) 94 70-99 [facility]2021-11-20 10:16:00 Test Item Value Reference Range Interpretation Comments BUN (test code = BUN) 23 7-22 [facility]2021-11-20 10:16:00 Test Item Value Reference Range Interpretation Comments Creatinine Lvl (test code = Creatinine 0.50 0.50-1.40 Lvl) [facility]2021-11-20 10:16:00 Test Item Value Reference Range Interpretation Comments Sodium Lvl (test code = Sodium Lvl) 140 135-145 [facility] [id number] 10:16:00 Test Item Value Reference Range Interpretation Comments Potassium Lvl (test code = Potassium 4.0 3.5-5.1 Lvl) [facility]2021-11-20 10:16:00 Test Item Value Reference Range Interpretation Comments Chloride Lvl (test code = Chloride Lvl) 108 95-109 [facility]2021-11-20 10:16:00 Test Item Value Reference Range Interpretation Comments CO2 (test code = CO2) 27 24-32 [facility]2021-11-20 10:16:00 Test Item Value Reference Range Interpretation Comments Calcium Lvl (test code = Calcium Lvl) 11.1 8.5-10.5 [place] 663521-11-20 10:16:00 Test Item Value Reference Range Interpretation Comments Total Protein (test code = Total 9.0 6.4-8.4 Protein) [place] 663521-11-20 10:16:00 Test Item Value Reference Range Interpretation Comments Albumin Lvl (test code = Albumin Lvl) 3.0 3.5-5.0 [place] 663521-11-20 10:16:00 Test Item Value Reference Range Interpretation Comments ALT (test code = ALT) 26 See_Comment [Auto mated message] The system which ge nerated this result transmit gill reference range : <=65. The reference range was not used to interpr et this result as len l/abnormal. [place] 663521-11-20 10:16:00 Test Item Value Reference Range Interpretation Comments AST (test code = AST) 35 See_Comment [Auto mated message] The system which ge nerated this result transmit gill reference range : <=37. The reference range was not used to interpr et this result as len l/abnormal. [place] 663521-11-20 10:16:00 Test Item Value Reference Range Interpretation Comments Alk Phos (test code = Alk Phos) 109 39-136 [facility] [id number] 10:16:00 Test Item Value Reference Range Interpretation Comments Bili Total (test code = Bili Total) 0.5 0.2-1.3 [place] 663521-11-20 10:16:00 Test Item Value Reference Range Interpretation Comments AGAP (test code = AGAP) 9.0 10.0-20.0 [facility] [id number] 10:16:00 Test Item Value Reference Range Interpretation Comments B/C Ratio (test code = B/C Ratio) 46 1 6-25 [place] 663521-11-20 10:16:00 Test Item Value Reference Range Interpretation Comments Globulin (test code = Globulin) 6.0 2.7-4.2 [facility] [id number] 10:16:00 Test Item Value Reference Range Interpretation Comments A/G Ratio (test code = A/G Ratio) 0.5 1 0.7-1.6 [facility]2021-11-20 10:16:00 Test Item Value Reference Range Interpretation Comments eGFR (test code = eGFR) 109 [id number] 10:16:00 Test Item Value Reference Range Interpretation Comments WBC (test code = WBC) 7.6 3.7-10.4 [facility] CypressKotggwlZZJXWEPNBS2384-43-61 10:16:00 Test Item Value Reference Range Interpretation Comments RBC (test code = RBC) 4.19 4.20-5.40 [facility] CypressCizptxfWZSRZZVEMO3596-93-69 10:16:00 Test Item Value Reference Range Interpretation Comments Hgb (test code = Hgb) 11.0 12.0-16.0 [place] 747591-11-20 10:16:00 Test Item Value Reference Range Interpretation Comments Hct (test code = Hct) 34.5 36.0-48.0 [facility] CypressOemnqluBQXAYNIXJU3481-74-74 10:16:00 Test Item Value Reference Range Interpretation Comments MCV (test code = MCV) 82.2 80.0-98.0 [facility] CypressGztihspUTSEDUSVPU8233-09-14 10:16:00 Test Item Value Reference Range Interpretation Comments MCH (test code = MCH) 26.3 pg 27.0-31.0 [facility] CypressWuugisoVNKQJBBKAL9057-80-99 10:16:00 Test Item Value Reference Range Interpretation Comments MCHC (test code = MCHC) 32.0 32.0-36.0 [facility] CypressFjpbbujXVTRLEGBIR0158-75-18 10:16:00 Test Item Value Reference Range Interpretation Comments RDW (test code = RDW) 17.1 11.5-14.5 [facility] CypressTtpcgjqDEZWNIGDJP0209-80-19 10:16:00 Test Item Value Reference Range Interpretation Comments Platelet (test code = Platelet) 448 133-450 [facility] Cy[id number] 10:16:00 Test Item Value Reference Range Interpretation Comments MPV (test code = MPV) 7.7 7.4-10.4 [place] 747591-11-20 10:16:00 Test Item Value Reference Range Interpretation Comments Segs (test code = Segs) 48.0 45.0-75.0 [facility] CypressHopirdpINJNYFZETM9675-12-13 10:16:00 Test Item Value Reference Range Interpretation Comments Lymphocytes (test code = Lymphocytes) 38.5 20.0-40.0 [facility] CypressOvosslpMVCZWUAZZL8460-43-04 10:16:00 Test Item Value Reference Range Interpretation Comments Monocytes (test code = Monocytes) 9.7 2.0-12.0 [facility] CypressLsoepbaICJINPGZYM8991-92-16 10:16:00 Test Item Value Reference Range Interpretation Comments Eosinophils (test code = 2.2 See_Comment [A utomated message] The Eosinophils) system which ge nerated this result tra nsmitted reference range : <=4.0. The reference r abdifatah was not used to int erpret this result as normal/abnormal . [facility] CypressMhsancdNKTZFLRNAH3698-62-19 10:16:00 Test Item Value Reference Range Interpretation Comments Basophils (test code = 1.6 See_Comment [Aut omated message] The Basophils) system which ge nerated this result tra nsmitted reference range : <=1.0. The reference r abdifatah was not used to int erpret this result as normal/abnormal . [facility] CypressStodianQXNYJBYENT4648-89-04 10:16:00 Test Item Value Reference Range Interpretation Comments Neutrophils # (test code = Neutrophils 3.6 1.5-8.1 #) [facility] CypressPujhbzqQMTEZJHAZA6608-78-33 10:16:00 Test Item Value Reference Range Interpretation Comments Lymphocytes # (test code = Lymphocytes 2.9 1.0-5.5 #) [facility] CypressUpsnyvmANZOJMVVUK4886-40-81 10:16:00 Test Item Value Reference Range Interpretation Comments Monocytes # (test code 0.7 See_Comment [Aut omated message] The = Monocytes #) system which generated this result tra nsmitted reference range : <=0.8. The reference r abdifatah was not used to int erpret this result as normal/abnormal . [facility] CypressTgsahbtDVLMDEGEQW4006-94-31 10:16:00 Test Item Value Reference Range Interpretation Comments Eosinophils # (test code 0.2 See_Comment [A utomated message] The = Eosinophils #) system whic h generated this result tra nsmitted reference range : <=0.5. The reference r abdifatah was not used to int erpret this result as normal/abnormal . [facility] Cy[id number] 10:16:00 Test Item Value Reference Range Interpretation Comments Basophils # (test code 0.1 See_Comment [Aut omated message] The = Basophils #) system which generated this result tra nsmitted reference range : <=0.2. The reference r abdifatah was not used to int erpret this result as normal/abnormal . [facility] CypressJskzrjpNJTRBSBZCW7593-94-03 10:16:00 Test Item Value Reference Range Interpretation Comments Coronavirus (COVID-19) Not Detected KASSY (test code = (03/17/21 4:16 AM) Coronavirus (COVID-19) KASSY) [facility] CypressOutbox [id number] 10:16:00 Test Item Value Reference Range Interpretation Comments Troponin-I (test code no gt See_Comment [Auto mated message] The = Troponin-I) system which g enerated this result transmit gill reference range : <=0.40. The reference r abdifatah was not used to interpr et this result as len l/abnormal. [facility]ressMozyK[facility] [id number] 10:16:00 Test Item Value Reference Range Interpretation Comments BNP (test code = BNP) 6 [facility]2021-11-20 10:16:00 Test Item Value Reference Range Interpretation Comments Glucose Lvl (test code = Glucose Lvl) 94 70-99 [facility]ressF[facility] [id number] 10:16:00 Test Item Value Reference Range Interpretation Comments BUN (test code = BUN) 23 7-22 [facility]2021-11-20 10:16:00 Test Item Value Reference Range Interpretation Comments Creatinine Lvl (test code = Creatinine 0.50 0.50-1.40 Lvl) [facility]2021-11-20 10:16:00 Test Item Value Reference Range Interpretation Comments Sodium Lvl (test code = Sodium Lvl) 140 135-145 [facility]ressF[facility] [id number] 10:16:00 Test Item Value Reference Range Interpretation Comments Potassium Lvl (test code = Potassium 4.0 3.5-5.1 Lvl) [facility]2021-11-20 10:16:00 Test Item Value Reference Range Interpretation Comments Chloride Lvl (test code = Chloride Lvl) 108 95-109 [facility]ressF[facility] [id number] 10:16:00 Test Item Value Reference Range Interpretation Comments CO2 (test code = CO2) 27 24-32 [place] 663521-11-20 10:16:00 Test Item Value Reference Range Interpretation Comments Calcium Lvl (test code = Calcium Lvl) 11.1 8.5-10.5 [place] 663521-11-20 10:16:00 Test Item Value Reference Range Interpretation Comments Total Protein (test code = Total 9.0 6.4-8.4 Protein) [place] 663521-11-20 10:16:00 Test Item Value Reference Range Interpretation Comments Albumin Lvl (test code = Albumin Lvl) 3.0 3.5-5.0 [facility] [id number] 10:16:00 Test Item Value Reference Range Interpretation Comments ALT (test code = ALT) 26 See_Comment [Auto mated message] The system which ge nerated this result transmit gill reference range : <=65. The reference range was not used to interpr et this result as len l/abnormal. [facility]ressF[facility] [id number] 10:16:00 Test Item Value Reference Range Interpretation Comments AST (test code = AST) 35 See_Comment [Auto mated message] The system which ge nerated this result transmit gill reference range : <=37. The reference range was not used to interpr et this result as len l/abnormal. [facility]ressF[facility] [id number] 10:16:00 Test Item Value Reference Range Interpretation Comments Alk Phos (test code = Alk Phos) 109 39-136 [facility] [id number] 10:16:00 Test Item Value Reference Range Interpretation Comments Bili Total (test code = Bili Total) 0.5 0.2-1.3 [facility]ressF[facility] [id number] 10:16:00 Test Item Value Reference Range Interpretation Comments AGAP (test code = AGAP) 9.0 10.0-20.0 [facility] [id number] 10:16:00 Test Item Value Reference Range Interpretation Comments B/C Ratio (test code = B/C Ratio) 46 1 6-25 [facility] [id number] 10:16:00 Test Item Value Reference Range Interpretation Comments Globulin (test code = Globulin) 6.0 2.7-4.2 [facility] [id number] 10:16:00 Test Item Value Reference Range Interpretation Comments A/G Ratio (test code = A/G Ratio) 0.5 1 0.7-1.6 [facility]2021-11-20 10:16:00 Test Item Value Reference Range Interpretation Comments eGFR (test code = eGFR) 109 [facility] Cy[id number] 10:16:00 Test Item Value Reference Range Interpretation Comments WBC (test code = WBC) 7.6 3.7-10.4 [facility] Cy[id number] 10:16:00 Test Item Value Reference Range Interpretation Comments RBC (test code = RBC) 4.19 4.20-5.40 [facility] Cy[id number] 10:16:00 Test Item Value Reference Range Interpretation Comments Hgb (test code = Hgb) 11.0 12.0-16.0 [facility] C[id number] 10:16:00 Test Item Value Reference Range Interpretation Comments Hct (test code = Hct) 34.5 36.0-48.0 [facility] CypressAunuzqmLUMACJDDYY9144-96-79 10:16:00 Test Item Value Reference Range Interpretation Comments MCV (test code = MCV) 82.2 80.0-98.0 [facility] CypressFghnspsWWFILKLHYE4132-03-58 10:16:00 Test Item Value Reference Range Interpretation Comments MCH (test code = MCH) 26.3 pg 27.0-31.0 [facility] [id number] 10:16:00 Test Item Value Reference Range Interpretation Comments MCHC (test code = MCHC) 32.0 32.0-36.0 [facility] CypressTplbcchNKCAQWTADR5097-78-97 10:16:00 Test Item Value Reference Range Interpretation Comments RDW (test code = RDW) 17.1 11.5-14.5 [place] 747591-11-20 10:16:00 Test Item Value Reference Range Interpretation Comments Platelet (test code = Platelet) 448 133-450 [facility] CypressSljbbscWWRDCTRURF6707-19-01 10:16:00 Test Item Value Reference Range Interpretation Comments MPV (test code = MPV) 7.7 7.4-10.4 [facility] CypressFokwfqjUKLKPFWDOH1537-62-24 10:16:00 Test Item Value Reference Range Interpretation Comments Segs (test code = Segs) 48.0 45.0-75.0 [facility] CypressVhqpskuWNNJPPQBZW9798-51-31 10:16:00 Test Item Value Reference Range Interpretation Comments Lymphocytes (test code = Lymphocytes) 38.5 20.0-40.0 [facility] CypressHeqxydyCDSYCCYFWH4800-37-55 10:16:00 Test Item Value Reference Range Interpretation Comments Monocytes (test code = Monocytes) 9.7 2.0-12.0 [facility] CypressTlqferoXTZVLZHDEL5640-30-97 10:16:00 Test Item Value Reference Range Interpretation Comments Eosinophils (test code = 2.2 See_Comment [A utomated message] The Eosinophils) system which ge nerated this result tra nsmitted reference range : <=4.0. The reference r abdifatah was not used to int erpret this result as normal/abnormal . [facility] [id number] 10:16:00 Test Item Value Reference Range Interpretation Comments Basophils (test code = 1.6 See_Comment [Aut omated message] The Basophils) system which ge nerated this result tra nsmitted reference range : <=1.0. The reference r abdifatah was not used to int erpret this result as normal/abnormal . [facility] CypressZhhhsycATNTHJRCPJ4124-57-32 10:16:00 Test Item Value Reference Range Interpretation Comments Neutrophils # (test code = Neutrophils 3.6 1.5-8.1 #) [facility] CypressGcyzhbfKQRQEEWYEU3095-20-48 10:16:00 Test Item Value Reference Range Interpretation Comments Lymphocytes # (test code = Lymphocytes 2.9 1.0-5.5 #) [facility] CypressEalzjvmXCVNVKTTIL5757-50-44 10:16:00 Test Item Value Reference Range Interpretation Comments Monocytes # (test code 0.7 See_Comment [Aut omated message] The = Monocytes #) system which generated this result tra nsmitted reference range : <=0.8. The reference r abdifatah was not used to int erpret this result as normal/abnormal . [facility] [id number] 10:16:00 Test Item Value Reference Range Interpretation Comments Eosinophils # (test code 0.2 See_Comment [A utomated message] The = Eosinophils #) system ic h generated this result tra nsmitted reference range : <=0.5. The reference r abdifatah was not used to int erpret this result as normal/abnormal . [facility] CypressQdwvvwoTIEWOJBWUW7365-02-27 10:16:00 Test Item Value Reference Range Interpretation Comments Basophils # (test code 0.1 See_Comment [Aut omated message] The = Basophils #) system which generated this result tra nsmitted reference range : <=0.2. The reference r abdifatah was not used to int erpret this result as normal/abnormal . [facility] CypressItqxpubLZUAGFXAGZ5516-69-90 10:16:00 Test Item Value Reference Range Interpretation Comments Coronavirus (COVID-19) Not Detected KASSY (test code = (03/17/21 4:16 AM) Coronavirus (COVID-19) KASSY) [facility] CypressCARIcarusAC [id number] 10:16:00 Test Item Value Reference Range Interpretation Comments Troponin-I (test code no gt See_Comment [Auto mated message] The = Troponin-I) system which g enerated this result transmit gill reference range : <=0.40. The reference r abdifatah was not used to interpr et this result as len l/abnormal. [facility] [id number] 10:16:00 Test Item Value Reference Range Interpretation Comments BNP (test code = BNP) 6 [facility] [id number] 10:16:00 Test Item Value Reference Range Interpretation Comments Glucose Lvl (test code = Glucose Lvl) 94 70-99 [facility] [id number] 10:16:00 Test Item Value Reference Range Interpretation Comments BUN (test code = BUN) 23 7-22 [facility] [id number] 10:16:00 Test Item Value Reference Range Interpretation Comments Creatinine Lvl (test code = Creatinine 0.50 0.50-1.40 Lvl) [facility] [id number] 10:16:00 Test Item Value Reference Range Interpretation Comments Sodium Lvl (test code = Sodium Lvl) 140 135-145 [facility] [id number] 10:16:00 Test Item Value Reference Range Interpretation Comments Potassium Lvl (test code = Potassium 4.0 3.5-5.1 Lvl) [facility] [id number] 10:16:00 Test Item Value Reference Range Interpretation Comments Chloride Lvl (test code = Chloride Lvl) 108 95-109 [facility] [id number] 10:16:00 Test Item Value Reference Range Interpretation Comments CO2 (test code = CO2) 27 24-32 [place] 663521-11-20 10:16:00 Test Item Value Reference Range Interpretation Comments Calcium Lvl (test code = Calcium Lvl) 11.1 8.5-10.5 [facility]ForJ[facility] [id number] 10:16:00 Test Item Value Reference Range Interpretation Comments Total Protein (test code = Total 9.0 6.4-8.4 Protein) [place] 663521-11-20 10:16:00 Test Item Value Reference Range Interpretation Comments Albumin Lvl (test code = Albumin Lvl) 3.0 3.5-5.0 [facility] [id number] 10:16:00 Test Item Value Reference Range Interpretation Comments ALT (test code = ALT) 26 See_Comment [Auto mated message] The system which ge nerated this result transmit gill reference range : <=65. The reference range was not used to interpr et this result as len l/abnormal. [facility]ressF[facility] [id number] 10:16:00 Test Item Value Reference Range Interpretation Comments AST (test code = AST) 35 See_Comment [Auto mated message] The system which ge nerated this result transmit gill reference range : <=37. The reference range was not used to interpr et this result as len l/abnormal. [facility]ressF[facility] [id number] 10:16:00 Test Item Value Reference Range Interpretation Comments Alk Phos (test code = Alk Phos) 109 39-136 [facility] [id number] 10:16:00 Test Item Value Reference Range Interpretation Comments Bili Total (test code = Bili Total) 0.5 0.2-1.3 [facility] [id number] 10:16:00 Test Item Value Reference Range Interpretation Comments AGAP (test code = AGAP) 9.0 10.0-20.0 [facility] [id number] 10:16:00 Test Item Value Reference Range Interpretation Comments B/C Ratio (test code = B/C Ratio) 46 1 6-25 [facility] [id number] 10:16:00 Test Item Value Reference Range Interpretation Comments Globulin (test code = Globulin) 6.0 2.7-4.2 [facility] CypressCHEM [id number] 10:16:00 Test Item Value Reference Range Interpretation Comments A/G Ratio (test code = A/G Ratio) 0.5 1 0.7-1.6 [facility] [id number] 10:16:00 Test Item Value Reference Range Interpretation Comments eGFR (test code = eGFR) 109 [facility] CypressWclfuraVQYFXTANSB2091-02-32 10:16:00 Test Item Value Reference Range Interpretation Comments WBC (test code = WBC) 7.6 3.7-10.4 [facility] CypressZzlyhifCMSNFEVXBI3492-66-11 10:16:00 Test Item Value Reference Range Interpretation Comments RBC (test code = RBC) 4.19 4.20-5.40 [facility] CypressTjinupdJZVCRLTITK5019-46-94 10:16:00 Test Item Value Reference Range Interpretation Comments Hgb (test code = Hgb) 11.0 12.0-16.0 [facility] Cy[id number] 10:16:00 Test Item Value Reference Range Interpretation Comments Hct (test code = Hct) 34.5 36.0-48.0 [facility] CypressMbdvyiaIXIIEHKDDW3632-65-62 10:16:00 Test Item Value Reference Range Interpretation Comments MCV (test code = MCV) 82.2 80.0-98.0 [facility] C[id number] 10:16:00 Test Item Value Reference Range Interpretation Comments MCH (test code = MCH) 26.3 pg 27.0-31.0 [facility] CypressOirubjcYGJXIKUPBO7977-48-21 10:16:00 Test Item Value Reference Range Interpretation Comments MCHC (test code = MCHC) 32.0 32.0-36.0 [facility] CypressYexzegsFSLQCWVTMW9015-18-97 10:16:00 Test Item Value Reference Range Interpretation Comments RDW (test code = RDW) 17.1 11.5-14.5 [facility] CypressJrrgbtzJBJBOZVJXY8371-08-74 10:16:00 Test Item Value Reference Range Interpretation Comments Platelet (test code = Platelet) 448 133-450 [facility] CypressGrgosfeCPGDJLBJUE6371-55-51 10:16:00 Test Item Value Reference Range Interpretation Comments MPV (test code = MPV) 7.7 7.4-10.4 [place] 747591-11-20 10:16:00 Test Item Value Reference Range Interpretation Comments Segs (test code = Segs) 48.0 45.0-75.0 [place] 747591-11-20 10:16:00 Test Item Value Reference Range Interpretation Comments Lymphocytes (test code = Lymphocytes) 38.5 20.0-40.0 [place] 747591-11-20 10:16:00 Test Item Value Reference Range Interpretation Comments Monocytes (test code = Monocytes) 9.7 2.0-12.0 [place] 747591-11-20 10:16:00 Test Item Value Reference Range Interpretation Comments Eosinophils (test code = 2.2 See_Comment [A utomated message] The Eosinophils) system which ge nerated this result tra nsmitted reference range : <=4.0. The reference r abdifatah was not used to int erpret this result as normal/abnormal . [place]7591-11-20 10:16:00 Test Item Value Reference Range Interpretation Comments Basophils (test code = 1.6 See_Comment [Aut omated message] The Basophils) system which ge nerated this result tra nsmitted reference range : <=1.0. The reference r abdifatah was not used to int erpret this result as normal/abnormal . [facility] C[id number] 10:16:00 Test Item Value Reference Range Interpretation Comments Neutrophils # (test code = Neutrophils 3.6 1.5-8.1 #) [place]7591-11-20 10:16:00 Test Item Value Reference Range Interpretation Comments Lymphocytes # (test code = Lymphocytes 2.9 1.0-5.5 #) [place]7591-11-20 10:16:00 Test Item Value Reference Range Interpretation Comments Monocytes # (test code 0.7 See_Comment [Aut omated message] The = Monocytes #) system which generated this result tra nsmitted reference range : <=0.8. The reference r abdifatah was not used to int erpret this result as normal/abnormal . [place]7591-11-20 10:16:00 Test Item Value Reference Range Interpretation Comments Eosinophils # (test code 0.2 See_Comment [A utomated message] The = Eosinophils #) system whic h generated this result tra nsmitted reference range : <=0.5. The reference r abdifatah was not used to int erpret this result as normal/abnormal . [facility] HospitalXmjglokKVFDDLSLMW9491-32-52 10:16:00 Test Item Value Reference Range Interpretation Comments Basophils # (test code 0.1 See_Comment [Aut omated message] The = Basophils #) system which generated this result tra nsmitted reference range : <=0.2. The reference r abdifatah was not used to int erpret this result as normal/abnormal . [facility] HospitalJetanyySNDMAOEUFI4873-59-19 10:16:00 Test Item Value Reference Range Interpretation Comments Coronavirus (COVID-19) Not Detected KASSY (test code = (03/17/21 4:16 AM) Coronavirus (COVID-19) KASSY) [facility]CARI[facility]AC [id number] 10:16:00 Test Item Value Reference Range Interpretation Comments Troponin-I (test code no gt See_Comment [Auto mated message] The = Troponin-I) system which g enerated this result transmit gill reference range : <=0.40. The reference r abdifatah was not used to interpr et this result as len l/abnormal. [facility] [id number] 10:16:00 Test Item Value Reference Range Interpretation Comments BNP (test code = BNP) 6 [facility] [id number] 10:16:00 Test Item Value Reference Range Interpretation Comments Glucose Lvl (test code = Glucose Lvl) 94 70-99 [facility] [id number] 10:16:00 Test Item Value Reference Range Interpretation Comments BUN (test code = BUN) 23 7-22 [facility] [employer] [id number] 10:16:00 Test Item Value Reference Range Interpretation Comments Creatinine Lvl (test code = Creatinine 0.50 0.50-1.40 Lvl) [facility] [employer] [id number] 10:16:00 Test Item Value Reference Range Interpretation Comments Sodium Lvl (test code = Sodium Lvl) 140 135-145 [facility] [employer]2021-11-20 10:16:00 Test Item Value Reference Range Interpretation Comments Potassium Lvl (test code = Potassium 4.0 3.5-5.1 Lvl) [facility] [employer] [id number] 10:16:00 Test Item Value Reference Range Interpretation Comments Chloride Lvl (test code = Chloride Lvl) 108 95-109 [facility] [id number] 10:16:00 Test Item Value Reference Range Interpretation Comments CO2 (test code = CO2) 27 24-32 [place] 663521-11-20 10:16:00 Test Item Value Reference Range Interpretation Comments Calcium Lvl (test code = Calcium Lvl) 11.1 8.5-10.5 [facility] [id number] 10:16:00 Test Item Value Reference Range Interpretation Comments Total Protein (test code = Total 9.0 6.4-8.4 Protein) [facility] [id number] 10:16:00 Test Item Value Reference Range Interpretation Comments Albumin Lvl (test code = Albumin Lvl) 3.0 3.5-5.0 [facility] [id number] 10:16:00 Test Item Value Reference Range Interpretation Comments ALT (test code = ALT) 26 See_Comment [Auto mated message] The system which ge nerated this result transmit gill reference range : <=65. The reference range was not used to interpr et this result as len l/abnormal. [facility] [id number] 10:16:00 Test Item Value Reference Range Interpretation Comments AST (test code = AST) 35 See_Comment [Auto mated message] The system which ge nerated this result transmit gill reference range : <=37. The reference range was not used to interpr et this result as len l/abnormal. [facility] [id number] 10:16:00 Test Item Value Reference Range Interpretation Comments Alk Phos (test code = Alk Phos) 109 39-136 [facility] [id number] 10:16:00 Test Item Value Reference Range Interpretation Comments Bili Total (test code = Bili Total) 0.5 0.2-1.3 [facility] [id number] 10:16:00 Test Item Value Reference Range Interpretation Comments AGAP (test code = AGAP) 9.0 10.0-20.0 [facility] [id number] 10:16:00 Test Item Value Reference Range Interpretation Comments B/C Ratio (test code = B/C Ratio) 46 1 6-25 [facility]2021-11-20 10:16:00 Test Item Value Reference Range Interpretation Comments Globulin (test code = Globulin) 6.0 2.7-4.2 [facility]2021-11-20 10:16:00 Test Item Value Reference Range Interpretation Comments A/G Ratio (test code = A/G Ratio) 0.5 1 0.7-1.6 [facility]2021-11-20 10:16:00 Test Item Value Reference Range Interpretation Comments eGFR (test code = eGFR) 109 [facility] [id number] 10:16:00 Test Item Value Reference Range Interpretation Comments WBC (test code = WBC) 7.6 3.7-10.4 [facility] CypressXydwjfeVWDTTNHOOP5921-01-13 10:16:00 Test Item Value Reference Range Interpretation Comments RBC (test code = RBC) 4.19 4.20-5.40 [facility] CypressQipoezcZFJTOQFHEY6745-17-27 10:16:00 Test Item Value Reference Range Interpretation Comments Hgb (test code = Hgb) 11.0 12.0-16.0 [place] 747591-11-20 10:16:00 Test Item Value Reference Range Interpretation Comments Hct (test code = Hct) 34.5 36.0-48.0 [facility] [id number] 10:16:00 Test Item Value Reference Range Interpretation Comments MCV (test code = MCV) 82.2 80.0-98.0 [facility] CypressBohmpzsPAPQDQZLNX5288-68-11 10:16:00 Test Item Value Reference Range Interpretation Comments MCH (test code = MCH) 26.3 pg 27.0-31.0 [facility] CypressExecoyyCTEXQZCYSQ5369-03-82 10:16:00 Test Item Value Reference Range Interpretation Comments MCHC (test code = MCHC) 32.0 32.0-36.0 [facility] CypressSzcwgoxUPKXNFZQKB3710-07-97 10:16:00 Test Item Value Reference Range Interpretation Comments RDW (test code = RDW) 17.1 11.5-14.5 [facility] Cypre[id number] 10:16:00 Test Item Value Reference Range Interpretation Comments Platelet (test code = Platelet) 448 133-450 [facility] Cypre[id number] 10:16:00 Test Item Value Reference Range Interpretation Comments MPV (test code = MPV) 7.7 7.4-10.4 [facility] C[id number] 10:16:00 Test Item Value Reference Range Interpretation Comments Segs (test code = Segs) 48.0 45.0-75.0 [facility] CypressNidodlqSPCKOQINMY2174-04-19 10:16:00 Test Item Value Reference Range Interpretation Comments Lymphocytes (test code = Lymphocytes) 38.5 20.0-40.0 [facility] CypressSehsieaXFBQCLXCYF4476-49-60 10:16:00 Test Item Value Reference Range Interpretation Comments Monocytes (test code = Monocytes) 9.7 2.0-12.0 [facility] Cy[id number] 10:16:00 Test Item Value Reference Range Interpretation Comments Eosinophils (test code = 2.2 See_Comment [A utomated message] The Eosinophils) system which ge nerated this result tra nsmitted reference range : <=4.0. The reference r abdifatah was not used to int erpret this result as normal/abnormal . [facility] CypressLxpvdrsXCKIQWFSQC9356-86-01 10:16:00 Test Item Value Reference Range Interpretation Comments Basophils (test code = 1.6 See_Comment [Aut omated message] The Basophils) system which ge nerated this result tra nsmitted reference range : <=1.0. The reference r abdifatah was not used to int erpret this result as normal/abnormal . [facility] C[id number] 10:16:00 Test Item Value Reference Range Interpretation Comments Neutrophils # (test code = Neutrophils 3.6 1.5-8.1 #) [facility] Cypre[id number] 10:16:00 Test Item Value Reference Range Interpretation Comments Lymphocytes # (test code = Lymphocytes 2.9 1.0-5.5 #) [facility] CypressFrkzgyzJZCZHDLMIS9676-81-24 10:16:00 Test Item Value Reference Range Interpretation Comments Monocytes # (test code 0.7 See_Comment [Aut omated message] The = Monocytes #) system which generated this result tra nsmitted reference range : <=0.8. The reference r abdifatah was not used to int erpret this result as normal/abnormal . [facility] CypressTpkdkjuCLATXIYLHX0904-06-14 10:16:00 Test Item Value Reference Range Interpretation Comments Eosinophils # (test code 0.2 See_Comment [A utomated message] The = Eosinophils #) system whic h generated this result tra nsmitted reference range : <=0.5. The reference r abdifatah was not used to int erpret this result as normal/abnormal . [facility] CypressLgqkrjhXQXRFCPMPI5279-97-74 10:16:00 Test Item Value Reference Range Interpretation Comments Basophils # (test code 0.1 See_Comment [Aut omated message] The = Basophils #) system which generated this result tra nsmitted reference range : <=0.2. The reference r abdifatah was not used to int erpret this result as normal/abnormal . [facility]dw[facility]obNCDABVVBFM9928-[facility]-93 10:16:00 Test Item Value Reference Range Interpretation Comments Coronavirus (COVID-19) Not Detected KASSY (test code = (03/17/21 4:16 AM) Coronavirus (COVID-19) KASSY) [facility] 10:16:00 Test Item Value Reference Range Interpretation Comments Troponin-I (test code no gt See_Comment [Auto mated message] The = Troponin-I) system which g enerated this result transmit gill reference range : <=0.40. The reference r abdifatah was not used to interpr et this result as len l/abnormal. [facility] [employer]2021-11-20 10:16:00 Test Item Value Reference Range Interpretation Comments BNP (test code = BNP) 6 [facility] [employer]2021-11-20 10:16:00 Test Item Value Reference Range Interpretation Comments Glucose Lvl (test code = Glucose Lvl) 94 70-99 [facility] [employer]2021-11-20 10:16:00 Test Item Value Reference Range Interpretation Comments BUN (test code = BUN) 23 7-22 [facility] [employer]2021-11-20 10:16:00 Test Item Value Reference Range Interpretation Comments Creatinine Lvl (test code = Creatinine 0.50 0.50-1.40 Lvl) [facility] [employer]2021-11-20 10:16:00 Test Item Value Reference Range Interpretation Comments Sodium Lvl (test code = Sodium Lvl) 140 135-145 [facility] [employer]2021-11-20 10:16:00 Test Item Value Reference Range Interpretation Comments Potassium Lvl (test code = Potassium 4.0 3.5-5.1 Lvl) [place] 663521-11-20 10:16:00 Test Item Value Reference Range Interpretation Comments Chloride Lvl (test code = Chloride Lvl) 108 95-109 [place] 663521-11-20 10:16:00 Test Item Value Reference Range Interpretation Comments CO2 (test code = CO2) 27 24-32 [place] 663521-11-20 10:16:00 Test Item Value Reference Range Interpretation Comments Calcium Lvl (test code = Calcium Lvl) 11.1 8.5-10.5 [facility] [id number] 10:16:00 Test Item Value Reference Range Interpretation Comments Total Protein (test code = Total 9.0 6.4-8.4 Protein) [place] 663521-11-20 10:16:00 Test Item Value Reference Range Interpretation Comments Albumin Lvl (test code = Albumin Lvl) 3.0 3.5-5.0 [facility] [id number] 10:16:00 Test Item Value Reference Range Interpretation Comments ALT (test code = ALT) 26 See_Comment [Auto mated message] The system which ge nerated this result transmit gill reference range : <=65. The reference range was not used to interpr et this result as len l/abnormal. [facility] [id number] 10:16:00 Test Item Value Reference Range Interpretation Comments AST (test code = AST) 35 See_Comment [Auto mated message] The system which ge nerated this result transmit gill reference range : <=37. The reference range was not used to interpr et this result as len l/abnormal. [facility] [id number] 10:16:00 Test Item Value Reference Range Interpretation Comments Alk Phos (test code = Alk Phos) 109 39-136 [facility] [id number] 10:16:00 Test Item Value Reference Range Interpretation Comments Bili Total (test code = Bili Total) 0.5 0.2-1.3 [facility] [id number] 10:16:00 Test Item Value Reference Range Interpretation Comments AGAP (test code = AGAP) 9.0 10.0-20.0 [place] 663521-11-20 10:16:00 Test Item Value Reference Range Interpretation Comments B/C Ratio (test code = B/C Ratio) 46 1 6-25 [place] 663521-11-20 10:16:00 Test Item Value Reference Range Interpretation Comments Globulin (test code = Globulin) 6.0 2.7-4.2 [place] 663521-11-20 10:16:00 Test Item Value Reference Range Interpretation Comments A/G Ratio (test code = A/G Ratio) 0.5 1 0.7-1.6 [place] 663521-11-20 10:16:00 Test Item Value Reference Range Interpretation Comments eGFR (test code = eGFR) 109 [facility] CypressSkezbzhHMODNOBFCU7217-57-77 10:16:00 Test Item Value Reference Range Interpretation Comments WBC (test code = WBC) 7.6 3.7-10.4 [place] 747591-11-20 10:16:00 Test Item Value Reference Range Interpretation Comments RBC (test code = RBC) 4.19 4.20-5.40 [place] 747591-11-20 10:16:00 Test Item Value Reference Range Interpretation Comments Hgb (test code = Hgb) 11.0 12.0-16.0 [place] 747591-11-20 10:16:00 Test Item Value Reference Range Interpretation Comments Hct (test code = Hct) 34.5 36.0-48.0 [place] 747591-11-20 10:16:00 Test Item Value Reference Range Interpretation Comments MCV (test code = MCV) 82.2 80.0-98.0 [place] 747591-11-20 10:16:00 Test Item Value Reference Range Interpretation Comments MCH (test code = MCH) 26.3 pg 27.0-31.0 [place] 747591-11-20 10:16:00 Test Item Value Reference Range Interpretation Comments MCHC (test code = MCHC) 32.0 32.0-36.0 [place] 747591-11-20 10:16:00 Test Item Value Reference Range Interpretation Comments RDW (test code = RDW) 17.1 11.5-14.5 [place] 747591-11-20 10:16:00 Test Item Value Reference Range Interpretation Comments Platelet (test code = Platelet) 448 133-450 [facility] CypressVscmmvfNSSURRBRNA8511-05-45 10:16:00 Test Item Value Reference Range Interpretation Comments MPV (test code = MPV) 7.7 7.4-10.4 [facility] CypressYmfrkinOSLMKWGMZD0358-23-73 10:16:00 Test Item Value Reference Range Interpretation Comments Segs (test code = Segs) 48.0 45.0-75.0 [facility] CypressOisdpcvOTRILXOAOL6922-32-96 10:16:00 Test Item Value Reference Range Interpretation Comments Lymphocytes (test code = Lymphocytes) 38.5 20.0-40.0 [place] 747591-11-20 10:16:00 Test Item Value Reference Range Interpretation Comments Monocytes (test code = Monocytes) 9.7 2.0-12.0 [facility] CypressVcnmxtdZCCUDHOXYB0526-21-46 10:16:00 Test Item Value Reference Range Interpretation Comments Eosinophils (test code = 2.2 See_Comment [A utomated message] The Eosinophils) system which ge nerated this result tra nsmitted reference range : <=4.0. The reference r abdifatah was not used to int erpret this result as normal/abnormal . [facility] CypressMrzkvuiMORXFZBTBW6306-59-90 10:16:00 Test Item Value Reference Range Interpretation Comments Basophils (test code = 1.6 See_Comment [Aut omated message] The Basophils) system which ge nerated this result tra nsmitted reference range : <=1.0. The reference r abdifatah was not used to int erpret this result as normal/abnormal . [facility] CypressPgegjzrISPLZYBWIL8692-34-28 10:16:00 Test Item Value Reference Range Interpretation Comments Neutrophils # (test code = Neutrophils 3.6 1.5-8.1 #) [facility] CypressLfijualROJBCQYMYJ7367-84-50 10:16:00 Test Item Value Reference Range Interpretation Comments Lymphocytes # (test code = Lymphocytes 2.9 1.0-5.5 #) [facility] CypressMvlxeuaZUXEOXFTFI3340-96-15 10:16:00 Test Item Value Reference Range Interpretation Comments Monocytes # (test code 0.7 See_Comment [Aut omated message] The = Monocytes #) system which generated this result tra nsmitted reference range : <=0.8. The reference r abdifatah was not used to int erpret this result as normal/abnormal . [facility]QondletUWLMOOCFUZ7778-61-49 10:16:00 Test Item Value Reference Range Interpretation Comments Eosinophils # (test code 0.2 See_Comment [A utomated message] The = Eosinophils #) system whic h generated this result tra nsmitted reference range : <=0.5. The reference r abdifatah was not used to int erpret this result as normal/abnormal . [facility] HospitalYgqewskTOGHBKGCMM2948-39-81 10:16:00 Test Item Value Reference Range Interpretation Comments Basophils # (test code 0.1 See_Comment [Aut omated message] The = Basophils #) system which generated this result tra nsmitted reference range : <=0.2. The reference r abdifatah was not used to int erpret this result as normal/abnormal . [facility] CypressJlczaqePKTRTAUYJQ5622-55-76 10:16:00 Test Item Value Reference Range Interpretation Comments Coronavirus (COVID-19) Not Detected KASSY (test code = (03/17/21 4:16 AM) Coronavirus (COVID-19) KASSY) [facility] 10:16:00 Test Item Value Reference Range Interpretation Comments Troponin-I (test code no gt See_Comment [Auto mated message] The = Troponin-I) system which g enerated this result transmit gill reference range : <=0.40. The reference r abdifatah was not used to interpr et this result as len l/abnormal. [facility] 10:16:00 Test Item Value Reference Range Interpretation Comments BNP (test code = BNP) 6 [facility] [id number] 10:16:00 Test Item Value Reference Range Interpretation Comments Glucose Lvl (test code = Glucose Lvl) 94 70-99 [facility]EnersaveDSZFG8141-39-85 10:16:00 Test Item Value Reference Range Interpretation Comments BUN (test code = BUN) 23 7-22 [facility] [id number] 10:16:00 Test Item Value Reference Range Interpretation Comments Creatinine Lvl (test code = Creatinine 0.50 0.50-1.40 Lvl) [facility] [id number] 10:16:00 Test Item Value Reference Range Interpretation Comments Sodium Lvl (test code = Sodium Lvl) 140 135-145 [place] [address]-11-20 10:16:00 Test Item Value Reference Range Interpretation Comments Potassium Lvl (test code = Potassium 4.0 3.5-5.1 Lvl) [place] 663521-11-20 10:16:00 Test Item Value Reference Range Interpretation Comments Chloride Lvl (test code = Chloride Lvl) 108 95-109 [place] 663521-11-20 10:16:00 Test Item Value Reference Range Interpretation Comments CO2 (test code = CO2) 27 24-32 [place] [address]-11-20 10:16:00 Test Item Value Reference Range Interpretation Comments Calcium Lvl (test code = Calcium Lvl) 11.1 8.5-10.5 [place] [address]-11-20 10:16:00 Test Item Value Reference Range Interpretation Comments Total Protein (test code = Total 9.0 6.4-8.4 Protein) [address]11-20 10:16:00 Test Item Value Reference Range Interpretation Comments Albumin Lvl (test code = Albumin Lvl) 3.0 3.5-5.0 [place] 663521-11-20 10:16:00 Test Item Value Reference Range Interpretation Comments ALT (test code = ALT) 26 See_Comment [Auto mated message] The system which ge nerated this result transmit gill reference range : <=65. The reference range was not used to interpr et this result as len l/abnormal. [place] 663521-11-20 10:16:00 Test Item Value Reference Range Interpretation Comments AST (test code = AST) 35 See_Comment [Auto mated message] The system which ge nerated this result transmit gill reference range : <=37. The reference range was not used to interpr et this result as len l/abnormal. [place] [address]-11-20 10:16:00 Test Item Value Reference Range Interpretation Comments Alk Phos (test code = Alk Phos) 109 39-136 [place] [address]-11-20 10:16:00 Test Item Value Reference Range Interpretation Comments Bili Total (test code = Bili Total) 0.5 0.2-1.3 [place] [address]-11-20 10:16:00 Test Item Value Reference Range Interpretation Comments AGAP (test code = AGAP) 9.0 10.0-20.0 [facility]2021-11-20 10:16:00 Test Item Value Reference Range Interpretation Comments B/C Ratio (test code = B/C Ratio) 46 1 6-25 [place] 663521-11-20 10:16:00 Test Item Value Reference Range Interpretation Comments Globulin (test code = Globulin) 6.0 2.7-4.2 [place] 663521-11-20 10:16:00 Test Item Value Reference Range Interpretation Comments A/G Ratio (test code = A/G Ratio) 0.5 1 0.7-1.6 [place] 663521-11-20 10:16:00 Test Item Value Reference Range Interpretation Comments eGFR (test code = eGFR) 109 [facility] CypressBovzngpLMYOWIPUGD5102-72-97 10:16:00 Test Item Value Reference Range Interpretation Comments WBC (test code = WBC) 7.6 3.7-10.4 [place] 747591-11-20 10:16:00 Test Item Value Reference Range Interpretation Comments RBC (test code = RBC) 4.19 4.20-5.40 [place] 747591-11-20 10:16:00 Test Item Value Reference Range Interpretation Comments Hgb (test code = Hgb) 11.0 12.0-16.0 [place] 747591-11-20 10:16:00 Test Item Value Reference Range Interpretation Comments Hct (test code = Hct) 34.5 36.0-48.0 [place] 747591-11-20 10:16:00 Test Item Value Reference Range Interpretation Comments MCV (test code = MCV) 82.2 80.0-98.0 [place] 747591-11-20 10:16:00 Test Item Value Reference Range Interpretation Comments MCH (test code = MCH) 26.3 pg 27.0-31.0 [place] 747591-11-20 10:16:00 Test Item Value Reference Range Interpretation Comments MCHC (test code = MCHC) 32.0 32.0-36.0 [place] 747591-11-20 10:16:00 Test Item Value Reference Range Interpretation Comments RDW (test code = RDW) 17.1 11.5-14.5 [facility] CypressOmubxdaXGKALONREW8594-98-64 10:16:00 Test Item Value Reference Range Interpretation Comments Platelet (test code = Platelet) 448 133-450 [place] 747591-11-20 10:16:00 Test Item Value Reference Range Interpretation Comments MPV (test code = MPV) 7.7 7.4-10.4 [place] 747591-11-20 10:16:00 Test Item Value Reference Range Interpretation Comments Segs (test code = Segs) 48.0 45.0-75.0 [place] 747591-11-20 10:16:00 Test Item Value Reference Range Interpretation Comments Lymphocytes (test code = Lymphocytes) 38.5 20.0-40.0 [place] 747591-11-20 10:16:00 Test Item Value Reference Range Interpretation Comments Monocytes (test code = Monocytes) 9.7 2.0-12.0 [place] 747591-11-20 10:16:00 Test Item Value Reference Range Interpretation Comments Eosinophils (test code = 2.2 See_Comment [A utomated message] The Eosinophils) system which ge nerated this result tra nsmitted reference range : <=4.0. The reference r abdifatah was not used to int erpret this result as normal/abnormal . [facility] CypressWmzfbeiBDNCDNMEPY9425-59-91 10:16:00 Test Item Value Reference Range Interpretation Comments Basophils (test code = 1.6 See_Comment [Aut omated message] The Basophils) system which ge nerated this result tra nsmitted reference range : <=1.0. The reference r abdifatah was not used to int erpret this result as normal/abnormal . [facility] CypressPmxomroUKYRTZFZYH0900-13-38 10:16:00 Test Item Value Reference Range Interpretation Comments Neutrophils # (test code = Neutrophils 3.6 1.5-8.1 #) [place] 747591-11-20 10:16:00 Test Item Value Reference Range Interpretation Comments Lymphocytes # (test code = Lymphocytes 2.9 1.0-5.5 #) [place] 747591-11-20 10:16:00 Test Item Value Reference Range Interpretation Comments Monocytes # (test code 0.7 See_Comment [Aut omated message] The = Monocytes #) system which generated this result tra nsmitted reference range : <=0.8. The reference r abdifatah was not used to int erpret this result as normal/abnormal . [facility] CypressIlphvkiEIVZQPVNWT2231-13-42 10:16:00 Test Item Value Reference Range Interpretation Comments Eosinophils # (test code 0.2 See_Comment [A utomated message] The = Eosinophils #) system whic h generated this result tra nsmitted reference range : <=0.5. The reference r abdifatah was not used to int erpret this result as normal/abnormal . [facility] CypressGoykoipLXLSNTQIEL6724-55-53 10:16:00 Test Item Value Reference Range Interpretation Comments Basophils # (test code 0.1 See_Comment [Aut omated message] The = Basophils #) system which generated this result tra nsmitted reference range : <=0.2. The reference r abdifatah was not used to int erpret this result as normal/abnormal . [facility] CypressOwfjhjeAZTIXHZFCB6673-45-40 10:16:00 Test Item Value Reference Range Interpretation Comments Coronavirus (COVID-19) Not Detected KASSY (test code = (03/17/21 4:16 AM) Coronavirus (COVID-19) KASSY) [facility] 10:16:00 Test Item Value Reference Range Interpretation Comments Troponin-I (test code no gt See_Comment [Auto mated message] The = Troponin-I) system which g enerated this result transmit gill reference range : <=0.40. The reference r abdifatah was not used to interpr et this result as len l/abnormal. [facility] Test Item Value Reference Range Interpretation Comments BNP (test code = BNP) 6 [facility] [id number] 10:16:00 Test Item Value Reference Range Interpretation Comments Glucose Lvl (test code = Glucose Lvl) 94 70-99 [id number] 10:16:00 Test Item Value Reference Range Interpretation Comments BUN (test code = BUN) 23 7-22 [facility] [id number] 10:16:00 Test Item Value Reference Range Interpretation Comments Creatinine Lvl (test code = Creatinine 0.50 0.50-1.40 Lvl) [place] 663521-11-20 10:16:00 Test Item Value Reference Range Interpretation Comments Sodium Lvl (test code = Sodium Lvl) 140 135-145 [place] 663521-11-20 10:16:00 Test Item Value Reference Range Interpretation Comments Potassium Lvl (test code = Potassium 4.0 3.5-5.1 Lvl) [place] 663521-11-20 10:16:00 Test Item Value Reference Range Interpretation Comments Chloride Lvl (test code = Chloride Lvl) 108 95-109 [facility] [id number] 10:16:00 Test Item Value Reference Range Interpretation Comments CO2 (test code = CO2) 27 24-32 [place] 663521-11-20 10:16:00 Test Item Value Reference Range Interpretation Comments Calcium Lvl (test code = Calcium Lvl) 11.1 8.5-10.5 [place] 663521-11-20 10:16:00 Test Item Value Reference Range Interpretation Comments Total Protein (test code = Total 9.0 6.4-8.4 Protein) [place] 663521-11-20 10:16:00 Test Item Value Reference Range Interpretation Comments Albumin Lvl (test code = Albumin Lvl) 3.0 3.5-5.0 [facility] [id number] 10:16:00 Test Item Value Reference Range Interpretation Comments ALT (test code = ALT) 26 See_Comment [Auto mated message] The system which ge nerated this result transmit gill reference range : <=65. The reference range was not used to interpr et this result as len l/abnormal. [facility] [id number] 10:16:00 Test Item Value Reference Range Interpretation Comments AST (test code = AST) 35 See_Comment [Auto mated message] The system which ge nerated this result transmit gill reference range : <=37. The reference range was not used to interpr et this result as len l/abnormal. [facility] [id number] 10:16:00 Test Item Value Reference Range Interpretation Comments Alk Phos (test code = Alk Phos) 109 39-136 [facility] [id number] 10:16:00 Test Item Value Reference Range Interpretation Comments Bili Total (test code = Bili Total) 0.5 0.2-1.3 [facility]2021-11-20 10:16:00 Test Item Value Reference Range Interpretation Comments AGAP (test code = AGAP) 9.0 10.0-20.0 [facility]2021-11-20 10:16:00 Test Item Value Reference Range Interpretation Comments B/C Ratio (test code = B/C Ratio) 46 1 6-25 [facility]2021-11-20 10:16:00 Test Item Value Reference Range Interpretation Comments Globulin (test code = Globulin) 6.0 2.7-4.2 [facility]2021-11-20 10:16:00 Test Item Value Reference Range Interpretation Comments A/G Ratio (test code = A/G Ratio) 0.5 1 0.7-1.6 [facility]2021-11-20 10:16:00 Test Item Value Reference Range Interpretation Comments eGFR (test code = eGFR) 109 [facility] [id number] 10:16:00 Test Item Value Reference Range Interpretation Comments WBC (test code = WBC) 7.6 3.7-10.4 [facility] [id number] 10:16:00 Test Item Value Reference Range Interpretation Comments RBC (test code = RBC) 4.19 4.20-5.40 [facility] CypressLdnjsvxNSMAFPUGIK0532-55-19 10:16:00 Test Item Value Reference Range Interpretation Comments Hgb (test code = Hgb) 11.0 12.0-16.0 [facility] CypressAldrdqdAOEVSVUGLE5100-42-11 10:16:00 Test Item Value Reference Range Interpretation Comments Hct (test code = Hct) 34.5 36.0-48.0 [place] 747591-11-20 10:16:00 Test Item Value Reference Range Interpretation Comments MCV (test code = MCV) 82.2 80.0-98.0 [facility] CypressPmjbtpnTXXZFHQOQW1203-24-10 10:16:00 Test Item Value Reference Range Interpretation Comments MCH (test code = MCH) 26.3 pg 27.0-31.0 [facility] CypressUslvmhqTNIYTDTDGZ6524-32-65 10:16:00 Test Item Value Reference Range Interpretation Comments MCHC (test code = MCHC) 32.0 32.0-36.0 [place] 747591-11-20 10:16:00 Test Item Value Reference Range Interpretation Comments RDW (test code = RDW) 17.1 11.5-14.5 [facility] Cypre[id number] 10:16:00 Test Item Value Reference Range Interpretation Comments Platelet (test code = Platelet) 448 133-450 [facility] CypressNesxutpBKXVXNSWZX4096-77-89 10:16:00 Test Item Value Reference Range Interpretation Comments MPV (test code = MPV) 7.7 7.4-10.4 [facility] CypressXqstrwkMQNNGJRJPH5168-07-72 10:16:00 Test Item Value Reference Range Interpretation Comments Segs (test code = Segs) 48.0 45.0-75.0 [facility] CypressOshkthcDSJBETVIZY6828-64-02 10:16:00 Test Item Value Reference Range Interpretation Comments Lymphocytes (test code = Lymphocytes) 38.5 20.0-40.0 [facility] CypressRactpjkVEWFXPQTKO2856-89-10 10:16:00 Test Item Value Reference Range Interpretation Comments Monocytes (test code = Monocytes) 9.7 2.0-12.0 [facility] CypressXfmksyyTYGBKYBLWD4596-36-98 10:16:00 Test Item Value Reference Range Interpretation Comments Eosinophils (test code = 2.2 See_Comment [A utomated message] The Eosinophils) system which ge nerated this result tra nsmitted reference range : <=4.0. The reference r abdifatah was not used to int erpret this result as normal/abnormal . [facility] CypressLpbqjfjNITUXBFOBA8060-18-66 10:16:00 Test Item Value Reference Range Interpretation Comments Basophils (test code = 1.6 See_Comment [Aut omated message] The Basophils) system which ge nerated this result tra nsmitted reference range : <=1.0. The reference r abdifatah was not used to int erpret this result as normal/abnormal . [facility] CypressPdgpcpyCRLVVOHRVT8184-52-32 10:16:00 Test Item Value Reference Range Interpretation Comments Neutrophils # (test code = Neutrophils 3.6 1.5-8.1 #) [facility] CypressEejycnmMOFXZSCRFQ1516-33-67 10:16:00 Test Item Value Reference Range Interpretation Comments Lymphocytes # (test code = Lymphocytes 2.9 1.0-5.5 #) [facility] CypressLppqflsFFADEHRLEI5292-63-96 10:16:00 Test Item Value Reference Range Interpretation Comments Monocytes # (test code 0.7 See_Comment [Aut omated message] The = Monocytes #) system which generated this result tra nsmitted reference range : <=0.8. The reference r abdifatah was not used to int erpret this result as normal/abnormal . [facility] CypressPaibidnUBIYHWXGHT8955-44-01 10:16:00 Test Item Value Reference Range Interpretation Comments Eosinophils # (test code 0.2 See_Comment [A utomated message] The = Eosinophils #) system whic h generated this result tra nsmitted reference range : <=0.5. The reference r abdifatah was not used to int erpret this result as normal/abnormal . [facility] CypressUrdbpqxNBUNSDGGGH2161-11-02 10:16:00 Test Item Value Reference Range Interpretation Comments Basophils # (test code 0.1 See_Comment [Aut omated message] The = Basophils #) system which generated this result tra nsmitted reference range : <=0.2. The reference r abdifatah was not used to int erpret this result as normal/abnormal . [facility] CypressTveplczLPSBWKPNUB6802-76-88 10:16:00 Test Item Value Reference Range Interpretation Comments Coronavirus (COVID-19) Not Detected KASSY (test code = (03/17/21 4:16 AM) Coronavirus (COVID-19) KASSY) [facility]00 Test Item Value Reference Range Interpretation Comments Troponin-I (test code = Troponin-I) no gt <=0.40 [facility] 10:16:00 Test Item Value Reference Range Interpretation Comments BNP (test code = BNP) 6 [facility] [id number] 10:16:00 Test Item Value Reference Range Interpretation Comments Glucose Lvl (test code = Glucose Lvl) 94 70-99 [facility] [id number] 10:16:00 Test Item Value Reference Range Interpretation Comments BUN (test code = BUN) 23 7-22 [facility] [id number] 10:16:00 Test Item Value Reference Range Interpretation Comments Creatinine Lvl (test code = Creatinine 0.50 0.50-1.40 Lvl) [facility] [id number] 10:16:00 Test Item Value Reference Range Interpretation Comments Sodium Lvl (test code = Sodium Lvl) 140 135-145 [facility]2021-11-20 10:16:00 Test Item Value Reference Range Interpretation Comments Potassium Lvl (test code = Potassium 4.0 3.5-5.1 Lvl) [facility]2021-11-20 10:16:00 Test Item Value Reference Range Interpretation Comments Chloride Lvl (test code = Chloride Lvl) 108 95-109 [facility]2021-11-20 10:16:00 Test Item Value Reference Range Interpretation Comments CO2 (test code = CO2) 27 24-32 [facility]2021-11-20 10:16:00 Test Item Value Reference Range Interpretation Comments Calcium Lvl (test code = Calcium Lvl) 11.1 8.5-10.5 [facility]2021-11-20 10:16:00 Test Item Value Reference Range Interpretation Comments Total Protein (test code = Total 9.0 6.4-8.4 Protein) [facility]2021-11-20 10:16:00 Test Item Value Reference Range Interpretation Comments Albumin Lvl (test code = Albumin Lvl) 3.0 3.5-5.0 [facility]2021-11-20 10:16:00 Test Item Value Reference Range Interpretation Comments ALT (test code = ALT) 26 <=65 [facility]2021-11-20 10:16:00 Test Item Value Reference Range Interpretation Comments AST (test code = AST) 35 <=37 [place] 663521-11-20 10:16:00 Test Item Value Reference Range Interpretation Comments Alk Phos (test code = Alk Phos) 109 39-136 [facility]2021-11-20 10:16:00 Test Item Value Reference Range Interpretation Comments Bili Total (test code = Bili Total) 0.5 0.2-1.3 [facility]2021-11-20 10:16:00 Test Item Value Reference Range Interpretation Comments AGAP (test code = AGAP) 9.0 10.0-20.0 [facility]2021-11-20 10:16:00 Test Item Value Reference Range Interpretation Comments B/C Ratio (test code = B/C Ratio) 46 1 6-25 [place] 663521-11-20 10:16:00 Test Item Value Reference Range Interpretation Comments Globulin (test code = Globulin) 6.0 2.7-4.2 [facility]2021-11-20 10:16:00 Test Item Value Reference Range Interpretation Comments A/G Ratio (test code = A/G Ratio) 0.5 1 0.7-1.6 [facility]2021-11-20 10:16:00 Test Item Value Reference Range Interpretation Comments eGFR (test code = eGFR) 109 [facility] [id number] 10:16:00 Test Item Value Reference Range Interpretation Comments WBC (test code = WBC) 7.6 3.7-10.4 [facility] CypressIazncgtCZVBVYZAZA0769-89-70 10:16:00 Test Item Value Reference Range Interpretation Comments RBC (test code = RBC) 4.19 4.20-5.40 [facility] CypressJdtjfczIIEKFVIROE7377-45-90 10:16:00 Test Item Value Reference Range Interpretation Comments Hgb (test code = Hgb) 11.0 12.0-16.0 [facility] CypressKsfqryvQCONBNJCZD6310-30-96 10:16:00 Test Item Value Reference Range Interpretation Comments Hct (test code = Hct) 34.5 36.0-48.0 [facility] CypressUtcmvcrDNQWPPOENQ6052-46-49 10:16:00 Test Item Value Reference Range Interpretation Comments MCV (test code = MCV) 82.2 80.0-98.0 [facility] CypressExvvoaqSBFBEKASIU6096-43-38 10:16:00 Test Item Value Reference Range Interpretation Comments MCH (test code = MCH) 26.3 pg 27.0-31.0 [facility] CypressVzleakeDZBZDWZDFB1453-50-34 10:16:00 Test Item Value Reference Range Interpretation Comments MCHC (test code = MCHC) 32.0 32.0-36.0 [facility] CypressXvuqvyeTHQTMYRSKH2141-16-30 10:16:00 Test Item Value Reference Range Interpretation Comments RDW (test code = RDW) 17.1 11.5-14.5 [facility] CypressFnqrlilUDSZPMNVYM8896-89-00 10:16:00 Test Item Value Reference Range Interpretation Comments Platelet (test code = Platelet) 448 133-450 [facility] Cypre[id number] 10:16:00 Test Item Value Reference Range Interpretation Comments MPV (test code = MPV) 7.7 7.4-10.4 [facility] CypressUhyxviyEWIJYMLKHA9054-29-25 10:16:00 Test Item Value Reference Range Interpretation Comments Segs (test code = Segs) 48.0 45.0-75.0 [facility] CypressZwqdvaiYJLSOHXZVR3818-45-88 10:16:00 Test Item Value Reference Range Interpretation Comments Lymphocytes (test code = Lymphocytes) 38.5 20.0-40.0 [facility] CypressSorytzdNEYCFEPEUR9825-39-36 10:16:00 Test Item Value Reference Range Interpretation Comments Monocytes (test code = Monocytes) 9.7 2.0-12.0 [facility] CypressOwzohfwPBWGHLKUJJ5860-44-22 10:16:00 Test Item Value Reference Range Interpretation Comments Eosinophils (test code = Eosinophils) 2.2 <=4.0 [facility] CypressJpbvxynVEIEZJTBQZ2314-14-32 10:16:00 Test Item Value Reference Range Interpretation Comments Basophils (test code = Basophils) 1.6 <=1.0 [facility] CypressIklffqxQZPQKGETTQ7355-21-80 10:16:00 Test Item Value Reference Range Interpretation Comments Neutrophils # (test code = Neutrophils 3.6 1.5-8.1 #) [facility] CypressFpotahzJOVLNRLIEP8164-37-69 10:16:00 Test Item Value Reference Range Interpretation Comments Lymphocytes # (test code = Lymphocytes 2.9 1.0-5.5 #) [facility] CypressOszsfjlOPUGATDATQ0802-01-65 10:16:00 Test Item Value Reference Range Interpretation Comments Monocytes # (test code = Monocytes #) 0.7 <=0.8 [facility] CypressEzhhuysCCXOITDVNF1996-16-11 10:16:00 Test Item Value Reference Range Interpretation Comments Eosinophils # (test code = Eosinophils 0.2 <=0.5 #) [facility] CypressZashfiwLNDRVUKADL1575-49-90 10:16:00 Test Item Value Reference Range Interpretation Comments Basophils # (test code = Basophils #) 0.1 <=0.2 [facility]ESYYWWYPV3419-[facility]-28 10:16:00 Test Item Value Reference Range Interpretation Comments Coronavirus (COVID-19) Not Detected KASSY (test code = (03/17/21 4:16 AM) Coronavirus (COVID-19) KASSY) [facility]2021-11-20 10:16:00 Test Item Value Reference Range Interpretation Comments Troponin-I (test code = Troponin-I) no gt <=0.40 [facility] CypressCARDIAC [id number] 10:16:00 Test Item Value Reference Range Interpretation Comments BNP (test code = BNP) 6 [facility]2021-11-20 10:16:00 Test Item Value Reference Range Interpretation Comments Glucose Lvl (test code = Glucose Lvl) 94 70-99 [facility]2021-11-20 10:16:00 Test Item Value Reference Range Interpretation Comments BUN (test code = BUN) 23 7-22 [facility]2021-11-20 10:16:00 Test Item Value Reference Range Interpretation Comments Creatinine Lvl (test code = Creatinine 0.50 0.50-1.40 Lvl) [facility]2021-11-20 10:16:00 Test Item Value Reference Range Interpretation Comments Sodium Lvl (test code = Sodium Lvl) 140 135-145 [facility]2021-11-20 10:16:00 Test Item Value Reference Range Interpretation Comments Potassium Lvl (test code = Potassium 4.0 3.5-5.1 Lvl) [facility]2021-11-20 10:16:00 Test Item Value Reference Range Interpretation Comments Chloride Lvl (test code = Chloride Lvl) 108 95-109 [facility]2021-11-20 10:16:00 Test Item Value Reference Range Interpretation Comments CO2 (test code = CO2) 27 24-32 [facility]2021-11-20 10:16:00 Test Item Value Reference Range Interpretation Comments Calcium Lvl (test code = Calcium Lvl) 11.1 8.5-10.5 [facility]2021-11-20 10:16:00 Test Item Value Reference Range Interpretation Comments Total Protein (test code = Total 9.0 6.4-8.4 Protein) [facility]2021-11-20 10:16:00 Test Item Value Reference Range Interpretation Comments Albumin Lvl (test code = Albumin Lvl) 3.0 3.5-5.0 [facility]2021-11-20 10:16:00 Test Item Value Reference Range Interpretation Comments ALT (test code = ALT) 26 <=65 [facility]2021-11-20 10:16:00 Test Item Value Reference Range Interpretation Comments AST (test code = AST) 35 <=37 [place] 663521-11-20 10:16:00 Test Item Value Reference Range Interpretation Comments Alk Phos (test code = Alk Phos) 109 39-136 [place] 663521-11-20 10:16:00 Test Item Value Reference Range Interpretation Comments Bili Total (test code = Bili Total) 0.5 0.2-1.3 [place] 663521-11-20 10:16:00 Test Item Value Reference Range Interpretation Comments AGAP (test code = AGAP) 9.0 10.0-20.0 [place] 663521-11-20 10:16:00 Test Item Value Reference Range Interpretation Comments B/C Ratio (test code = B/C Ratio) 46 1 6-25 [place] 663521-11-20 10:16:00 Test Item Value Reference Range Interpretation Comments Globulin (test code = Globulin) 6.0 2.7-4.2 [place] 663521-11-20 10:16:00 Test Item Value Reference Range Interpretation Comments A/G Ratio (test code = A/G Ratio) 0.5 1 0.7-1.6 [place] 663521-11-20 10:16:00 Test Item Value Reference Range Interpretation Comments eGFR (test code = eGFR) 109 [facility] CypressJnbuubwYSHCFUMMZQ4969-09-29 10:16:00 Test Item Value Reference Range Interpretation Comments WBC (test code = WBC) 7.6 3.7-10.4 [place] 747591-11-20 10:16:00 Test Item Value Reference Range Interpretation Comments RBC (test code = RBC) 4.19 4.20-5.40 [place] 747591-11-20 10:16:00 Test Item Value Reference Range Interpretation Comments Hgb (test code = Hgb) 11.0 12.0-16.0 [place] 747591-11-20 10:16:00 Test Item Value Reference Range Interpretation Comments Hct (test code = Hct) 34.5 36.0-48.0 [place] 747591-11-20 10:16:00 Test Item Value Reference Range Interpretation Comments MCV (test code = MCV) 82.2 80.0-98.0 [facility] CypressTdtguvlWFBPDNEDTU1709-04-80 10:16:00 Test Item Value Reference Range Interpretation Comments MCH (test code = MCH) 26.3 pg 27.0-31.0 [facility] CypressOqjfxmqAOSKWFVOSS9791-89-64 10:16:00 Test Item Value Reference Range Interpretation Comments MCHC (test code = MCHC) 32.0 32.0-36.0 [facility] CypressJjgexalIBMPXOPJEH2805-65-49 10:16:00 Test Item Value Reference Range Interpretation Comments RDW (test code = RDW) 17.1 11.5-14.5 [facility] CypressEkreexeREEOIDHVOX5825-71-09 10:16:00 Test Item Value Reference Range Interpretation Comments Platelet (test code = Platelet) 448 133-450 [facility] CypressRtxhqflZSKJAPTNEQ9596-81-97 10:16:00 Test Item Value Reference Range Interpretation Comments MPV (test code = MPV) 7.7 7.4-10.4 [facility] CypressTwdlfanPDSUBFPXKX5179-02-32 10:16:00 Test Item Value Reference Range Interpretation Comments Segs (test code = Segs) 48.0 45.0-75.0 [facility] CypressXuozdvhZRRCLTURDL1014-67-15 10:16:00 Test Item Value Reference Range Interpretation Comments Lymphocytes (test code = Lymphocytes) 38.5 20.0-40.0 [facility] CypressBynmuhpVOIMEQHXQR3328-08-05 10:16:00 Test Item Value Reference Range Interpretation Comments Monocytes (test code = Monocytes) 9.7 2.0-12.0 [facility] CypressFyxwrznNVTGMKCBEA5230-09-29 10:16:00 Test Item Value Reference Range Interpretation Comments Eosinophils (test code = Eosinophils) 2.2 <=4.0 [facility] CypressPkffswpSNFZRMOLPS6176-81-08 10:16:00 Test Item Value Reference Range Interpretation Comments Basophils (test code = Basophils) 1.6 <=1.0 [facility] CypressBzlbygiESWSWLQSJI9557-20-50 10:16:00 Test Item Value Reference Range Interpretation Comments Neutrophils # (test code = Neutrophils 3.6 1.5-8.1 #) [facility] CypressXemtqnlEBUKNMVULZ9432-43-24 10:16:00 Test Item Value Reference Range Interpretation Comments Lymphocytes # (test code = Lymphocytes 2.9 1.0-5.5 #) [facility] CypressBkhufjgXOVVBFDRIR0370-43-22 10:16:00 Test Item Value Reference Range Interpretation Comments Monocytes # (test code = Monocytes #) 0.7 <=0.8 [facility]ommxzhGEQQQBDRML7668-64-55 10:16:00 Test Item Value Reference Range Interpretation Comments Eosinophils # (test code = Eosinophils 0.2 <=0.5 #) [facility] HospitalOvrzruhHORWPYHJWB4924-70-40 10:16:00 Test Item Value Reference Range Interpretation Comments Basophils # (test code = Basophils #) 0.1 <=0.2 [facility] CypressGzcfuiiSGJCSHNBOA3986-09-54 10:16:00 Test Item Value Reference Range Interpretation Comments Coronavirus (COVID-19) Not Detected KASSY (test code = (03/17/21 4:16 AM) Coronavirus (COVID-19) KASSY) [facility] CypressU.S. Local News NetworkAC [id number] 10:16:00 Test Item Value Reference Range Interpretation Comments Troponin-I (test code no gt See_Comment [Auto mated message] The = Troponin-I) system which g enerated this result transmit gill reference range : <=0.40. The reference r abdifatah was not used to interpr et this result as len l/abnormal. [facility] [id number] 10:16:00 Test Item Value Reference Range Interpretation Comments BNP (test code = BNP) 6 [facility] [id number] 10:16:00 Test Item Value Reference Range Interpretation Comments Glucose Lvl (test code = Glucose Lvl) 94 70-99 [facility]ressF[facility] [id number] 10:16:00 Test Item Value Reference Range Interpretation Comments BUN (test code = BUN) 23 7-22 [facility]ressF[facility] [id number] 10:16:00 Test Item Value Reference Range Interpretation Comments Creatinine Lvl (test code = Creatinine 0.50 0.50-1.40 Lvl) [facility] [id number] 10:16:00 Test Item Value Reference Range Interpretation Comments Sodium Lvl (test code = Sodium Lvl) 140 135-145 [facility] [id number] 10:16:00 Test Item Value Reference Range Interpretation Comments Potassium Lvl (test code = Potassium 4.0 3.5-5.1 Lvl) [facility] [id number] 10:16:00 Test Item Value Reference Range Interpretation Comments Chloride Lvl (test code = Chloride Lvl) 108 95-109 [facility] [id number] 10:16:00 Test Item Value Reference Range Interpretation Comments CO2 (test code = CO2) 27 24-32 [place] 663521-11-20 10:16:00 Test Item Value Reference Range Interpretation Comments Calcium Lvl (test code = Calcium Lvl) 11.1 8.5-10.5 [facility] [id number] 10:16:00 Test Item Value Reference Range Interpretation Comments Total Protein (test code = Total 9.0 6.4-8.4 Protein) [facility] [id number] 10:16:00 Test Item Value Reference Range Interpretation Comments Albumin Lvl (test code = Albumin Lvl) 3.0 3.5-5.0 [facility] [id number] 10:16:00 Test Item Value Reference Range Interpretation Comments ALT (test code = ALT) 26 See_Comment [Auto mated message] The system which ge nerated this result transmit gill reference range : <=65. The reference range was not used to interpr et this result as len l/abnormal. [facility] [id number] 10:16:00 Test Item Value Reference Range Interpretation Comments AST (test code = AST) 35 See_Comment [Auto mated message] The system which ge nerated this result transmit gill reference range : <=37. The reference range was not used to interpr et this result as len l/abnormal. [facility] [id number] 10:16:00 Test Item Value Reference Range Interpretation Comments Alk Phos (test code = Alk Phos) 109 39-136 [facility] [id number] 10:16:00 Test Item Value Reference Range Interpretation Comments Bili Total (test code = Bili Total) 0.5 0.2-1.3 [facility] [id number] 10:16:00 Test Item Value Reference Range Interpretation Comments AGAP (test code = AGAP) 9.0 10.0-20.0 [facility] [id number] 10:16:00 Test Item Value Reference Range Interpretation Comments B/C Ratio (test code = B/C Ratio) 46 1 6-25 [facility]2021-11-20 10:16:00 Test Item Value Reference Range Interpretation Comments Globulin (test code = Globulin) 6.0 2.7-4.2 [facility]2021-11-20 10:16:00 Test Item Value Reference Range Interpretation Comments A/G Ratio (test code = A/G Ratio) 0.5 1 0.7-1.6 [facility]2021-11-20 10:16:00 Test Item Value Reference Range Interpretation Comments eGFR (test code = eGFR) 109 [facility] CypressVnudvhlDJOXJNLMTV6446-14-50 10:16:00 Test Item Value Reference Range Interpretation Comments WBC (test code = WBC) 7.6 3.7-10.4 [facility] CypressZrcjpflQEBHXXIVLD4170-84-81 10:16:00 Test Item Value Reference Range Interpretation Comments RBC (test code = RBC) 4.19 4.20-5.40 [facility] CypressRfchpxcJDDZVHAIOE8942-53-39 10:16:00 Test Item Value Reference Range Interpretation Comments Hgb (test code = Hgb) 11.0 12.0-16.0 [facility] CypressDitebcfBWHSDJSRKF3372-07-66 10:16:00 Test Item Value Reference Range Interpretation Comments Hct (test code = Hct) 34.5 36.0-48.0 [facility] CypressMrqgbydJSHYUSASZF7887-41-83 10:16:00 Test Item Value Reference Range Interpretation Comments MCV (test code = MCV) 82.2 80.0-98.0 [facility] CypressUalmxivLUARMYPBPQ9208-68-19 10:16:00 Test Item Value Reference Range Interpretation Comments MCH (test code = MCH) 26.3 pg 27.0-31.0 [facility] CypressXzuhlzcWKAYZEVFSK3496-19-32 10:16:00 Test Item Value Reference Range Interpretation Comments MCHC (test code = MCHC) 32.0 32.0-36.0 [facility] [id number] 10:16:00 Test Item Value Reference Range Interpretation Comments RDW (test code = RDW) 17.1 11.5-14.5 [facility] CypressIxlkabyJRQXWDAZBH3988-72-93 10:16:00 Test Item Value Reference Range Interpretation Comments Platelet (test code = Platelet) 448 133-450 [facility] CypressBmjwrakKRTOYQDETG7850-75-44 10:16:00 Test Item Value Reference Range Interpretation Comments MPV (test code = MPV) 7.7 7.4-10.4 [facility] CypressZfucmwrFNZMEGJNOQ8577-82-33 10:16:00 Test Item Value Reference Range Interpretation Comments Segs (test code = Segs) 48.0 45.0-75.0 [place] 747591-11-20 10:16:00 Test Item Value Reference Range Interpretation Comments Lymphocytes (test code = Lymphocytes) 38.5 20.0-40.0 [place] 747591-11-20 10:16:00 Test Item Value Reference Range Interpretation Comments Monocytes (test code = Monocytes) 9.7 2.0-12.0 [place] 747591-11-20 10:16:00 Test Item Value Reference Range Interpretation Comments Eosinophils (test code = 2.2 See_Comment [A utomated message] The Eosinophils) system which ge nerated this result tra nsmitted reference range : <=4.0. The reference r abdifatah was not used to int erpret this result as normal/abnormal . [facility] CypressAmwldbbRRWTLBQBWU0469-11-81 10:16:00 Test Item Value Reference Range Interpretation Comments Basophils (test code = 1.6 See_Comment [Aut omated message] The Basophils) system which ge nerated this result tra nsmitted reference range : <=1.0. The reference r abdifatah was not used to int erpret this result as normal/abnormal . [facility] CypressRsvffdqIUFGNPNZWP1768-39-33 10:16:00 Test Item Value Reference Range Interpretation Comments Neutrophils # (test code = Neutrophils 3.6 1.5-8.1 #) [facility] CypressJjqoyewKDYQUAEXWD0255-04-33 10:16:00 Test Item Value Reference Range Interpretation Comments Lymphocytes # (test code = Lymphocytes 2.9 1.0-5.5 #) [facility] CypressHojmmxvGRDNIXQPOF8619-04-24 10:16:00 Test Item Value Reference Range Interpretation Comments Monocytes # (test code 0.7 See_Comment [Aut omated message] The = Monocytes #) system which generated this result tra nsmitted reference range : <=0.8. The reference r abdifatah was not used to int erpret this result as normal/abnormal . [facility] CypressFcaigomVYXZVSUIFH6560-23-17 10:16:00 Test Item Value Reference Range Interpretation Comments Eosinophils # (test code 0.2 See_Comment [A utomated message] The = Eosinophils #) system whic h generated this result tra nsmitted reference range : <=0.5. The reference r abdifatah was not used to int erpret this result as normal/abnormal . [facility] CypressMpulgocXXVOAPDGHC3841-04-08 10:16:00 Test Item Value Reference Range Interpretation Comments Basophils # (test code 0.1 See_Comment [Aut omated message] The = Basophils #) system which generated this result tra nsmitted reference range : <=0.2. The reference r abdifatah was not used to int erpret this result as normal/abnormal . [facility] HospitalZndtdrvNZDEVABSMO5622-85-13 10:16:00 Test Item Value Reference Range Interpretation Comments Coronavirus (COVID-19) Not Detected KASSY (test code = (03/17/21 4:16 AM) Coronavirus (COVID-19) KASSY) [facility] [id number] 10:16:00 Test Item Value Reference Range Interpretation Comments Troponin-I (test code = Troponin-I) no gt <=0.40 [facility] [id number] 10:16:00 Test Item Value Reference Range Interpretation Comments BNP (test code = BNP) 6 [facility] [employer] [id number] 10:16:00 Test Item Value Reference Range Interpretation Comments Glucose Lvl (test code = Glucose Lvl) 94 70-99 [facility] [id number] 10:16:00 Test Item Value Reference Range Interpretation Comments BUN (test code = BUN) 23 7-22 [facility] [employer] [id number] 10:16:00 Test Item Value Reference Range Interpretation Comments Creatinine Lvl (test code = Creatinine 0.50 0.50-1.40 Lvl) [facility] [employer] [id number] 10:16:00 Test Item Value Reference Range Interpretation Comments Sodium Lvl (test code = Sodium Lvl) 140 135-145 [facility] [employer] [id number] 10:16:00 Test Item Value Reference Range Interpretation Comments Potassium Lvl (test code = Potassium 4.0 3.5-5.1 Lvl) [facility] [employer]2021-11-20 10:16:00 Test Item Value Reference Range Interpretation Comments Chloride Lvl (test code = Chloride Lvl) 108 95-109 [facility]2021-11-20 10:16:00 Test Item Value Reference Range Interpretation Comments CO2 (test code = CO2) 27 24-32 [facility]2021-11-20 10:16:00 Test Item Value Reference Range Interpretation Comments Calcium Lvl (test code = Calcium Lvl) 11.1 8.5-10.5 [place] 663521-11-20 10:16:00 Test Item Value Reference Range Interpretation Comments Total Protein (test code = Total 9.0 6.4-8.4 Protein) [facility]2021-11-20 10:16:00 Test Item Value Reference Range Interpretation Comments Albumin Lvl (test code = Albumin Lvl) 3.0 3.5-5.0 [facility]2021-11-20 10:16:00 Test Item Value Reference Range Interpretation Comments ALT (test code = ALT) 26 <=65 [facility] [id number] 10:16:00 Test Item Value Reference Range Interpretation Comments AST (test code = AST) 35 <=37 [place] 663521-11-20 10:16:00 Test Item Value Reference Range Interpretation Comments Alk Phos (test code = Alk Phos) 109 39-136 [facility]2021-11-20 10:16:00 Test Item Value Reference Range Interpretation Comments Bili Total (test code = Bili Total) 0.5 0.2-1.3 [place] 663521-11-20 10:16:00 Test Item Value Reference Range Interpretation Comments AGAP (test code = AGAP) 9.0 10.0-20.0 [facility] [id number] 10:16:00 Test Item Value Reference Range Interpretation Comments B/C Ratio (test code = B/C Ratio) 46 1 6-25 [place] 663521-11-20 10:16:00 Test Item Value Reference Range Interpretation Comments Globulin (test code = Globulin) 6.0 2.7-4.2 [place] 663521-11-20 10:16:00 Test Item Value Reference Range Interpretation Comments A/G Ratio (test code = A/G Ratio) 0.5 1 0.7-1.[address]11-20 10:16:00 Test Item Value Reference Range Interpretation Comments eGFR (test code = eGFR) 109 [facility] CypressQmrywjaVRSYHQCNAT0180-50-07 10:16:00 Test Item Value Reference Range Interpretation Comments WBC (test code = WBC) 7.6 3.7-10.4 [place] 747591-11-20 10:16:00 Test Item Value Reference Range Interpretation Comments RBC (test code = RBC) 4.19 4.20-5.40 [place] 747591-11-20 10:16:00 Test Item Value Reference Range Interpretation Comments Hgb (test code = Hgb) 11.0 12.0-16.0 [place] 747591-11-20 10:16:00 Test Item Value Reference Range Interpretation Comments Hct (test code = Hct) 34.5 36.0-48.0 [facility] CypressYcnaxvvEQJMPBBHFX1954-85-05 10:16:00 Test Item Value Reference Range Interpretation Comments MCV (test code = MCV) 82.2 80.0-98.0 [facility] CypressImsarhePYWMIJITRU8963-28-31 10:16:00 Test Item Value Reference Range Interpretation Comments MCH (test code = MCH) 26.3 pg 27.0-31.0 [facility] CypressTufqxwmTEIONBSBSZ6701-61-33 10:16:00 Test Item Value Reference Range Interpretation Comments MCHC (test code = MCHC) 32.0 32.0-36.0 [facility] CypressKurszfgVEHHMZMMJX9886-71-92 10:16:00 Test Item Value Reference Range Interpretation Comments RDW (test code = RDW) 17.1 11.5-14.5 [facility] CypressGdwxkzgDCZRTSKONL9728-19-66 10:16:00 Test Item Value Reference Range Interpretation Comments Platelet (test code = Platelet) 448 133-450 [facility] CypressCrirwzqABBBAFDKDO3545-32-14 10:16:00 Test Item Value Reference Range Interpretation Comments MPV (test code = MPV) 7.7 7.4-10.4 [facility] CypressWnmwidjTNQVDKSOFY4414-13-66 10:16:00 Test Item Value Reference Range Interpretation Comments Segs (test code = Segs) 48.0 45.0-75.0 [facility] CypressSspmiitJETDCYEQXU4054-75-15 10:16:00 Test Item Value Reference Range Interpretation Comments Lymphocytes (test code = Lymphocytes) 38.5 20.0-40.0 [facility] CypressDjqvsbbBBXREXXPWZ1887-78-52 10:16:00 Test Item Value Reference Range Interpretation Comments Monocytes (test code = Monocytes) 9.7 2.0-12.0 [facility] CypressTglpulcOCTMXMSPIF1580-69-42 10:16:00 Test Item Value Reference Range Interpretation Comments Eosinophils (test code = Eosinophils) 2.2 <=4.0 [facility]HzcccerMNUBHOTKSB5713-27-68 10:16:00 Test Item Value Reference Range Interpretation Comments Basophils (test code = Basophils) 1.6 <=1.0 [facility] CypressCznlczhKCHTQTARXV0482-99-34 10:16:00 Test Item Value Reference Range Interpretation Comments Neutrophils # (test code = Neutrophils 3.6 1.5-8.1 #) [facility] CypressHmynnciLPKQBZVHUX4522-84-21 10:16:00 Test Item Value Reference Range Interpretation Comments Lymphocytes # (test code = Lymphocytes 2.9 1.0-5.5 #) [facility] HospitalUitvyeeIAVOMFMMKT6373-22-95 10:16:00 Test Item Value Reference Range Interpretation Comments Monocytes # (test code = Monocytes #) 0.7 <=0.8 [facility] CypressKkicvevTRASKORMDA7436-94-63 10:16:00 Test Item Value Reference Range Interpretation Comments Eosinophils # (test code = Eosinophils 0.2 <=0.5 #) [facility] HospitalRfasvseZQDYYKMIVH8238-14-78 10:16:00 Test Item Value Reference Range Interpretation Comments Basophils # (test code = Basophils #) 0.1 <=0.2 [facility] CypressObjrddgYXQLRXGCBS1985-85-12 10:16:00 Test Item Value Reference Range Interpretation Comments Coronavirus (COVID-19) Not Detected KASSY (test code = (03/17/21 4:16 AM) Coronavirus (COVID-19) KASSY) [facility] CypressCARDIAC [id number] 10:16:00 Test Item Value Reference Range Interpretation Comments Troponin-I (test code = Troponin-I) no gt <=0.40 [facility] CypressCARDIAC [id number] 10:16:00 Test Item Value Reference Range Interpretation Comments BNP (test code = BNP) 6 [facility] CypressCHEM [id number] 10:16:00 Test Item Value Reference Range Interpretation Comments Glucose Lvl (test code = Glucose Lvl) 94 70-99 [place] 663521-11-20 10:16:00 Test Item Value Reference Range Interpretation Comments BUN (test code = BUN) 23 7-22 [place] 663521-11-20 10:16:00 Test Item Value Reference Range Interpretation Comments Creatinine Lvl (test code = Creatinine 0.50 0.50-1.40 Lvl) [place] 663521-11-20 10:16:00 Test Item Value Reference Range Interpretation Comments Sodium Lvl (test code = Sodium Lvl) 140 135-145 [place] 663521-11-20 10:16:00 Test Item Value Reference Range Interpretation Comments Potassium Lvl (test code = Potassium 4.0 3.5-5.1 Lvl) [facility]2021-11-20 10:16:00 Test Item Value Reference Range Interpretation Comments Chloride Lvl (test code = Chloride Lvl) 108 95-109 [place] 663521-11-20 10:16:00 Test Item Value Reference Range Interpretation Comments CO2 (test code = CO2) 27 24-32 [place] 663521-11-20 10:16:00 Test Item Value Reference Range Interpretation Comments Calcium Lvl (test code = Calcium Lvl) 11.1 8.5-10.5 [facility]2021-11-20 10:16:00 Test Item Value Reference Range Interpretation Comments Total Protein (test code = Total 9.0 6.4-8.4 Protein) [place] 663521-11-20 10:16:00 Test Item Value Reference Range Interpretation Comments Albumin Lvl (test code = Albumin Lvl) 3.0 3.5-5.0 [place] 663521-11-20 10:16:00 Test Item Value Reference Range Interpretation Comments ALT (test code = ALT) 26 <=65 [place] 663521-11-20 10:16:00 Test Item Value Reference Range Interpretation Comments AST (test code = AST) 35 <=37 [place] 663521-11-20 10:16:00 Test Item Value Reference Range Interpretation Comments Alk Phos (test code = Alk Phos) 109 39-136 [place] 663521-11-20 10:16:00 Test Item Value Reference Range Interpretation Comments Bili Total (test code = Bili Total) 0.5 0.2-1.3 [facility]2021-11-20 10:16:00 Test Item Value Reference Range Interpretation Comments AGAP (test code = AGAP) 9.0 10.0-20.0 [facility]2021-11-20 10:16:00 Test Item Value Reference Range Interpretation Comments B/C Ratio (test code = B/C Ratio) 46 1 6-25 [place] 663521-11-20 10:16:00 Test Item Value Reference Range Interpretation Comments Globulin (test code = Globulin) 6.0 2.7-4.2 [facility]2021-11-20 10:16:00 Test Item Value Reference Range Interpretation Comments A/G Ratio (test code = A/G Ratio) 0.5 1 0.7-1.6 [place] 663521-11-20 10:16:00 Test Item Value Reference Range Interpretation Comments eGFR (test code = eGFR) 109 [facility] CypressBqhnfjyVDQIQPZLHT5435-86-90 10:16:00 Test Item Value Reference Range Interpretation Comments WBC (test code = WBC) 7.6 3.7-10.4 [facility] CypressZdlsygsLAACOFRXCG7818-10-17 10:16:00 Test Item Value Reference Range Interpretation Comments RBC (test code = RBC) 4.19 4.20-5.40 [facility] CypressCtdbywmVKTFQCLPJA1417-14-19 10:16:00 Test Item Value Reference Range Interpretation Comments Hgb (test code = Hgb) 11.0 12.0-16.0 [place] 747591-11-20 10:16:00 Test Item Value Reference Range Interpretation Comments Hct (test code = Hct) 34.5 36.0-48.0 [place] 747591-11-20 10:16:00 Test Item Value Reference Range Interpretation Comments MCV (test code = MCV) 82.2 80.0-98.0 [place] 747591-11-20 10:16:00 Test Item Value Reference Range Interpretation Comments MCH (test code = MCH) 26.3 pg 27.0-31.0 [place] 747591-11-20 10:16:00 Test Item Value Reference Range Interpretation Comments MCHC (test code = MCHC) 32.0 32.0-36.0 [place] 747591-11-20 10:16:00 Test Item Value Reference Range Interpretation Comments RDW (test code = RDW) 17.1 11.5-14.5 [place] 747591-11-20 10:16:00 Test Item Value Reference Range Interpretation Comments Platelet (test code = Platelet) 448 133-450 [facility] CypressXijtsobPBZCAXAOJL1244-19-94 10:16:00 Test Item Value Reference Range Interpretation Comments MPV (test code = MPV) 7.7 7.4-10.4 [facility] CypressTepnblwJRWIRPKQZK7343-01-97 10:16:00 Test Item Value Reference Range Interpretation Comments Segs (test code = Segs) 48.0 45.0-75.0 [facility] CypressYznizyaVFOMOZMAOR3016-91-20 10:16:00 Test Item Value Reference Range Interpretation Comments Lymphocytes (test code = Lymphocytes) 38.5 20.0-40.0 [facility] CypressGqtsmptZIXHCBSDTE5535-69-86 10:16:00 Test Item Value Reference Range Interpretation Comments Monocytes (test code = Monocytes) 9.7 2.0-12.0 [facility] CypressJeovoluSYYGKPAOZY1476-24-14 10:16:00 Test Item Value Reference Range Interpretation Comments Eosinophils (test code = Eosinophils) 2.2 <=4.0 [facility] CypressBrbzbwzXWQQSNEUAN7608-79-93 10:16:00 Test Item Value Reference Range Interpretation Comments Basophils (test code = Basophils) 1.6 <=1.0 [facility] CypressTmhbeicNGUZINRMCV6438-66-71 10:16:00 Test Item Value Reference Range Interpretation Comments Neutrophils # (test code = Neutrophils 3.6 1.5-8.1 #) [facility] CypressTarpibzDHVUTFLPWB0942-78-05 10:16:00 Test Item Value Reference Range Interpretation Comments Lymphocytes # (test code = Lymphocytes 2.9 1.0-5.5 #) [facility] CypressAywqcqyDTJIBAADNW6046-41-07 10:16:00 Test Item Value Reference Range Interpretation Comments Monocytes # (test code = Monocytes #) 0.7 <=0.8 [place] 747591-11-20 10:16:00 Test Item Value Reference Range Interpretation Comments Eosinophils # (test code = Eosinophils 0.2 <=0.5 #) [facility] CypressOhtmfirNSZQRPTXSW3399-48-68 10:16:00 Test Item Value Reference Range Interpretation Comments Basophils # (test code = Basophils #) 0.1 <=0.2 [facility] CypressPvuimbzYNVCBVRASO1514-74-86 10:16:00 Test Item Value Reference Range Interpretation Comments Coronavirus (COVID-19) Not Detected KASSY (test code = (03/17/21 4:16 AM) Coronavirus (COVID-19) KASSY) [facility]ressMozyKOS[facility] [id number] 10:16:00 Test Item Value Reference Range Interpretation Comments Troponin-I (test code no gt See_Comment [Auto mated message] The = Troponin-I) system which g enerated this result transmit gill reference range : <=0.40. The reference r abdifatah was not used to interpr et this result as len l/abnormal. [facility]ressMozyKOS[facility] [id number] 10:16:00 Test Item Value Reference Range Interpretation Comments BNP (test code = BNP) 6 [facility] [id number] 10:16:00 Test Item Value Reference Range Interpretation Comments Glucose Lvl (test code = Glucose Lvl) 94 70-99 [facility] [id number] 10:16:00 Test Item Value Reference Range Interpretation Comments BUN (test code = BUN) 23 7-22 [facility]2021-11-20 10:16:00 Test Item Value Reference Range Interpretation Comments Creatinine Lvl (test code = Creatinine 0.50 0.50-1.40 Lvl) [facility]2021-11-20 10:16:00 Test Item Value Reference Range Interpretation Comments Sodium Lvl (test code = Sodium Lvl) 140 135-145 [facility] [id number] 10:16:00 Test Item Value Reference Range Interpretation Comments Potassium Lvl (test code = Potassium 4.0 3.5-5.1 Lvl) [facility] [id number] 10:16:00 Test Item Value Reference Range Interpretation Comments Chloride Lvl (test code = Chloride Lvl) 108 95-109 [facility]2021-11-20 10:16:00 Test Item Value Reference Range Interpretation Comments CO2 (test code = CO2) 27 24-32 [facility] [id number] 10:16:00 Test Item Value Reference Range Interpretation Comments Calcium Lvl (test code = Calcium Lvl) 11.1 8.5-10.5 [place] 663521-11-20 10:16:00 Test Item Value Reference Range Interpretation Comments Total Protein (test code = Total 9.0 6.4-8.4 Protein) [place] 663521-11-20 10:16:00 Test Item Value Reference Range Interpretation Comments Albumin Lvl (test code = Albumin Lvl) 3.0 3.5-5.0 [place] 663521-11-20 10:16:00 Test Item Value Reference Range Interpretation Comments ALT (test code = ALT) 26 See_Comment [Auto mated message] The system which ge nerated this result transmit gill reference range : <=65. The reference range was not used to interpr et this result as len l/abnormal. [place] 663521-11-20 10:16:00 Test Item Value Reference Range Interpretation Comments AST (test code = AST) 35 See_Comment [Auto mated message] The system which ge nerated this result transmit gill reference range : <=37. The reference range was not used to interpr et this result as len l/abnormal. [place] 663521-11-18 10:55:00 Test Item Value Reference Range Interpretation Comments Glucose Lvl (test code = Glucose Lvl) 106 70-99 [place] 663521-11-18 10:55:00 Test Item Value Reference Range Interpretation Comments BUN (test code = BUN) 17 7-22 [place] 663521-11-18 10:55:00 Test Item Value Reference Range Interpretation Comments Creatinine Lvl (test code = Creatinine 0.34 0.50-1.40 Lvl) [place] 663521-11-18 10:55:00 Test Item Value Reference Range Interpretation Comments Sodium Lvl (test code = Sodium Lvl) 141 135-145 [place] 663521-11-18 10:55:00 Test Item Value Reference Range Interpretation Comments Potassium Lvl (test code = Potassium 4.1 3.5-5.1 Lvl) [place] 663521-11-18 10:55:00 Test Item Value Reference Range Interpretation Comments Chloride Lvl (test code = Chloride Lvl) 106 95-109 [place] 663521-11-18 10:55:00 Test Item Value Reference Range Interpretation Comments CO2 (test code = CO2) 28 24-32 [facility]2021-11-18 10:55:00 Test Item Value Reference Range Interpretation Comments Calcium Lvl (test code = Calcium Lvl) 10.7 8.5-10.5 [facility]2021-11-18 10:55:00 Test Item Value Reference Range Interpretation Comments AGAP (test code = AGAP) 11.1 10.0-20.0 [facility]2021-11-18 10:55:00 Test Item Value Reference Range Interpretation Comments eGFR (test code = eGFR) 123 [facility]FjlqlkvCXLXGCLPQM9186-07-07 10:55:00 Test Item Value Reference Range Interpretation Comments WBC (test code = WBC) 6.6 3.7-10.4 [place]91-11-18 10:55:00 Test Item Value Reference Range Interpretation Comments RBC (test code = RBC) 3.83 4.20-5.40 [facility]ressUulcovxPDVRTSEOZY1885-17-47 10:55:00 Test Item Value Reference Range Interpretation Comments Hgb (test code = Hgb) 10.2 12.0-16.0 [place]7591-11-18 10:55:00 Test Item Value Reference Range Interpretation Comments Hct (test code = Hct) 31.4 36.0-48.0 [place]7591-11-18 10:55:00 Test Item Value Reference Range Interpretation Comments MCV (test code = MCV) 81.8 80.0-98.0 [facility] CypressAzlmhpcYWENTHHFKO4093-48-61 10:55:00 Test Item Value Reference Range Interpretation Comments MCH (test code = MCH) 26.7 pg 27.0-31.0 [place]7591-11-18 10:55:00 Test Item Value Reference Range Interpretation Comments MCHC (test code = MCHC) 32.6 32.0-36.0 [facility] CypressSncmcqlTHMNGPAOPF5036-67-57 10:55:00 Test Item Value Reference Range Interpretation Comments RDW (test code = RDW) 16.7 11.5-14.5 [place] 747591-11-18 10:55:00 Test Item Value Reference Range Interpretation Comments Platelet (test code = Platelet) 400 133-450 [place] [address]-11-18 10:55:00 Test Item Value Reference Range Interpretation Comments MPV (test code = MPV) 7.3 7.4-10.4 [place] [address]-11-18 10:55:00 Test Item Value Reference Range Interpretation Comments Segs (test code = Segs) 60.5 45.0-75.0 [place] [address]-11-18 10:55:00 Test Item Value Reference Range Interpretation Comments Lymphocytes (test code = Lymphocytes) 24.4 20.0-40.0 [place] [address]-11-18 10:55:00 Test Item Value Reference Range Interpretation Comments Monocytes (test code = Monocytes) 13.2 2.0-12.0 [place] [address]-11-18 10:55:00 Test Item Value Reference Range Interpretation Comments Eosinophils (test code = Eosinophils) 1.4 <=4.0 [place] [address]-11-18 10:55:00 Test Item Value Reference Range Interpretation Comments Basophils (test code = Basophils) 0.5 <=1.0 [place] [address]-11-18 10:55:00 Test Item Value Reference Range Interpretation Comments Neutrophils # (test code = Neutrophils 4.0 1.5-8.1 #) [place] [address]-11-18 10:55:00 Test Item Value Reference Range Interpretation Comments Lymphocytes # (test code = Lymphocytes 1.6 1.0-5.5 #) [place] [address]-11-18 10:55:00 Test Item Value Reference Range Interpretation Comments Monocytes # (test code = Monocytes #) 0.9 <=0.8 [place] [address]-11-18 10:55:00 Test Item Value Reference Range Interpretation Comments Eosinophils # (test code = Eosinophils 0.1 <=0.5 #) [place] 663521-11-17 08:13:00 Test Item Value Reference Range Interpretation Comments Glucose Lvl (test code = Glucose Lvl) 118 70-99 [place] 663521-11-17 08:13:00 Test Item Value Reference Range Interpretation Comments BUN (test code = BUN) 20 7-22 [place] 663521-11-17 08:13:00 Test Item Value Reference Range Interpretation Comments Creatinine Lvl (test code = Creatinine 0.48 0.50-1.40 Lvl) [address]11-17 08:13:00 Test Item Value Reference Range Interpretation Comments Sodium Lvl (test code = Sodium Lvl) 140 135-145 [address]11-17 08:13:00 Test Item Value Reference Range Interpretation Comments Potassium Lvl (test code = Potassium 4.3 3.5-5.1 Lvl) [address]11-17 08:13:00 Test Item Value Reference Range Interpretation Comments Chloride Lvl (test code = Chloride Lvl) 105 95-109 [address]11-17 08:13:00 Test Item Value Reference Range Interpretation Comments CO2 (test code = CO2) 28 24-32 [address]11-17 08:13:00 Test Item Value Reference Range Interpretation Comments Calcium Lvl (test code = Calcium Lvl) 10.6 8.5-10.5 [address]11-17 08:13:00 Test Item Value Reference Range Interpretation Comments AGAP (test code = AGAP) 11.3 10.0-20.0 [address]11-17 08:13:00 Test Item Value Reference Range Interpretation Comments eGFR (test code = eGFR) 110 [place] [address]-11-17 08:13:00 Test Item Value Reference Range Interpretation Comments WBC (test code = WBC) 7.2 3.7-10.4 [place] [address]-11-17 08:13:00 Test Item Value Reference Range Interpretation Comments RBC (test code = RBC) 4.10 4.20-5.40 [place] [address]-11-17 08:13:00 Test Item Value Reference Range Interpretation Comments Hgb (test code = Hgb) 10.9 12.0-16.0 [place] [address]-11-17 08:13:00 Test Item Value Reference Range Interpretation Comments Hct (test code = Hct) 33.9 36.0-48.0 [place] [address]-11-17 08:13:00 Test Item Value Reference Range Interpretation Comments MCV (test code = MCV) 82.5 80.0-98.0 [place] [address]-11-17 08:13:00 Test Item Value Reference Range Interpretation Comments MCH (test code = MCH) 26.5 pg 27.0-31.0 [facility] CypressRyqbknxTBEDWKWSYZ5708-95-44 08:13:00 Test Item Value Reference Range Interpretation Comments MCHC (test code = MCHC) 32.1 32.0-36.0 [facility] CypressUbdnakuZKQXGUBAEO7408-60-42 08:13:00 Test Item Value Reference Range Interpretation Comments RDW (test code = RDW) 17.2 11.5-14.5 [facility] CypressRhtzelySRCLNYYNPR7237-78-87 08:13:00 Test Item Value Reference Range Interpretation Comments Platelet (test code = Platelet) 445 133-450 [facility] CypressOspgjwaSGZXSSWYNE6886-30-84 08:13:00 Test Item Value Reference Range Interpretation Comments MPV (test code = MPV) 7.4 7.4-10.4 [place]7591-11-17 08:13:00 Test Item Value Reference Range Interpretation Comments Segs (test code = Segs) 70.6 45.0-75.0 [facility] CypressQtknewwIMGQLSDYGW0063-92-87 08:13:00 Test Item Value Reference Range Interpretation Comments Lymphocytes (test code = Lymphocytes) 16.7 20.0-40.0 [facility] CypressMngrnufEBDCLUEZFD6073-29-03 08:13:00 Test Item Value Reference Range Interpretation Comments Monocytes (test code = Monocytes) 11.8 2.0-12.0 [place]7591-11-17 08:13:00 Test Item Value Reference Range Interpretation Comments Eosinophils (test code = Eosinophils) 0.6 <=4.0 [facility] CypressRpppymfZIFOLGXIWN6209-14-09 08:13:00 Test Item Value Reference Range Interpretation Comments Basophils (test code = Basophils) 0.3 <=1.0 [place]7591-11-17 08:13:00 Test Item Value Reference Range Interpretation Comments Neutrophils # (test code = Neutrophils 5.1 1.5-8.1 #) [facility] CypressUsblmotNZVFJOUZLM5431-47-75 08:13:00 Test Item Value Reference Range Interpretation Comments Lymphocytes # (test code = Lymphocytes 1.2 1.0-5.5 #) [place]7591-11-17 08:13:00 Test Item Value Reference Range Interpretation Comments Monocytes # (test code = Monocytes #) 0.8 <=0.8 [facility] [id number] 06:51:00 Test Item Value Reference Range Interpretation Comments ABO/Rh (test code = ABO/Rh) A POS [facility] [id number] 06:51:00 Test Item Value Reference Range Interpretation Comments Antibody Scrn (test Negative (03/13/21 code = Antibody Scrn) 12:51 AM) [facility]ressF[facility] [id number] 06:51:00 Test Item Value Reference Range Interpretation Comments Glucose Lvl (test code = Glucose Lvl) 67 70-99 [facility] [id number] 06:51:00 Test Item Value Reference Range Interpretation Comments BUN (test code = BUN) 18 7-22 [facility] [id number] 06:51:00 Test Item Value Reference Range Interpretation Comments Creatinine Lvl (test code = Creatinine 0.49 0.50-1.40 Lvl) [facility] [id number] 06:51:00 Test Item Value Reference Range Interpretation Comments Sodium Lvl (test code = Sodium Lvl) 141 135-145 [facility] [id number] 06:51:00 Test Item Value Reference Range Interpretation Comments Potassium Lvl (test code = Potassium 4.1 3.5-5.1 Lvl) [facility] [id number] 06:51:00 Test Item Value Reference Range Interpretation Comments Chloride Lvl (test code = Chloride Lvl) 106 95-109 [facility] [id number] 06:51:00 Test Item Value Reference Range Interpretation Comments CO2 (test code = CO2) 26 24-32 [facility] [id number] 06:51:00 Test Item Value Reference Range Interpretation Comments AGAP (test code = AGAP) 13.1 10.0-20.0 [facility] [id number] 06:51:00 Test Item Value Reference Range Interpretation Comments Calcium Lvl (test code = Calcium Lvl) 10.5 8.5-10.5 [facility] [id number] 06:51:00 Test Item Value Reference Range Interpretation Comments eGFR (test code = eGFR) 109 [facility] CypressQacapcuBYGOPPOPNM8056-43-49 06:51:00 Test Item Value Reference Range Interpretation Comments RBC Morph (test code = Normal (03/13/21 12:51 RBC Morph) AM) [facility] CypressZadubmsMEOGOTOCOA3947-37-61 06:51:00 Test Item Value Reference Range Interpretation Comments Plt Morph (test code = Normal (03/13/21 12:51 Plt Morph) AM) [facility] CypressLudlkppHMJZKXDYTB7298-33-71 06:51:00 Test Item Value Reference Range Interpretation Comments Segs (test code = Segs) 51.3 45.0-75.0 [facility] CypressSrtremmUQQHDXRSTW2710-48-40 06:51:00 Test Item Value Reference Range Interpretation Comments Lymphocytes (test code = Lymphocytes) 36.0 20.0-40.0 [facility] CypressFkfzbnuQLKPOSVVAJ3204-35-53 06:51:00 Test Item Value Reference Range Interpretation Comments Monocytes (test code = Monocytes) 10.1 2.0-12.0 [place]7591-11-16 06:51:00 Test Item Value Reference Range Interpretation Comments Eosinophils (test code = Eosinophils) 1.6 <=4.0 [facility] CypressLhxmolnHAZYVTHIDS2956-69-06 06:51:00 Test Item Value Reference Range Interpretation Comments Basophils (test code = Basophils) 1.0 <=1.0 [place]7591-11-16 06:51:00 Test Item Value Reference Range Interpretation Comments Neutrophils # (test code = Neutrophils 3.0 1.5-8.1 #) [facility] CypressOdwfcmrEZYSYPUIEX1811-15-82 06:51:00 Test Item Value Reference Range Interpretation Comments Lymphocytes # (test code = Lymphocytes 2.1 1.0-5.5 #) [facility] CypressZwfxognWJFAYAIJUW7867-31-79 06:51:00 Test Item Value Reference Range Interpretation Comments Monocytes # (test code = Monocytes #) 0.6 <=0.8 [place]7591-11-16 06:51:00 Test Item Value Reference Range Interpretation Comments Eosinophils # (test code = Eosinophils 0.1 <=0.5 #) [facility] CypressZyzuqnkPKVDCTRQGB6418-92-69 06:51:00 Test Item Value Reference Range Interpretation Comments Basophils # (test code = Basophils #) 0.1 <=0.2 [place]7591-11-16 06:51:00 Test Item Value Reference Range Interpretation Comments WBC (test code = WBC) 5.9 3.7-10.4 [facility] CypressKnreuoyLDTVXTIFBV9574-68-35 06:51:00 Test Item Value Reference Range Interpretation Comments RBC (test code = RBC) 4.12 4.20-5.40 [facility] CypressElgeckgAPCNYHDFLH1816-60-59 06:51:00 Test Item Value Reference Range Interpretation Comments Hgb (test code = Hgb) 11.0 12.0-16.0 [facility] CypressPwcwxljOWBHILCWCD0815-24-58 06:51:00 Test Item Value Reference Range Interpretation Comments Hct (test code = Hct) 33.9 36.0-48.0 [facility] CypressAqoavnrSDJEQALGWN5701-06-91 06:51:00 Test Item Value Reference Range Interpretation Comments MCV (test code = MCV) 82.1 80.0-98.0 [facility] CypressTehbliuWBLRPPHSWG6131-67-49 06:51:00 Test Item Value Reference Range Interpretation Comments MCH (test code = MCH) 26.6 pg 27.0-31.0 [facility] CypressDzlqzbgPRJBJMCRBR7957-73-14 06:51:00 Test Item Value Reference Range Interpretation Comments MCHC (test code = MCHC) 32.4 32.0-36.0 [facility] CypressMmhuituGMWOMFSEDF9146-89-32 06:51:00 Test Item Value Reference Range Interpretation Comments RDW (test code = RDW) 16.9 11.5-14.5 [facility] CypressHydevlwAPFDGAGSOT2369-78-74 06:51:00 Test Item Value Reference Range Interpretation Comments Platelet (test code = Platelet) 463 133-450 [facility] CypressRdrqtusOZPZZTXJMV1640-39-93 06:51:00 Test Item Value Reference Range Interpretation Comments MPV (test code = MPV) 8.0 7.4-10.4 [facility] CypressChyxhrvBCZQIBYSOG1632-09-97 12:10:00 Test Item Value Reference Range Interpretation Comments Eosinophils # (test code = Eosinophils 0.1 <=0.5 #) [facility] CypressFlzlhtnNCYXRVQTLU6569-60-79 12:21:00 Test Item Value Reference Range Interpretation Comments RBC Morph (test code = Normal (03/09/21 6:21 RBC Morph) AM) [facility] CypressKqnutylLCMTAQOSOB9064-40-37 12:21:00 Test Item Value Reference Range Interpretation Comments Plt Morph (test code = Normal (03/09/21 6:21 Plt Morph) AM) [place]7591-11-09 11:55:00 Test Item Value Reference Range Interpretation Comments Basophils # (test code = Basophils #) 0.1 <=0.2 [place]7591-11-09 11:55:00 Test Item Value Reference Range Interpretation Comments Bands (test code = Bands) 0.0 <=11.0 [place]7591-11-09 11:55:00 Test Item Value Reference Range Interpretation Comments Atypical Lymphs (test code = Atypical 0.0 Lymphs) [place] [address]-11-09 11:55:00 Test Item Value Reference Range Interpretation Comments NRBC (test code = NRBC) 1 [place]7591-11-09 11:55:00 Test Item Value Reference Range Interpretation Comments Plt Morph (test code = Normal (03/06/21 5:55 Plt Morph) AM) [place]7591-11-09 11:55:00 Test Item Value Reference Range Interpretation Comments Anisocyte (test code = 1+ *ABN*(03/06/21 Anisocyte) 5:55 AM) [place] 747591-11-09 11:55:00 Test Item Value Reference Range Interpretation Comments Hypochrom (test code = 1+ (03/06/21 5:55 AM) Hypochrom) [place] 663521-11-07 15:37:00 Test Item Value Reference Range Interpretation Comments Glucose Lvl (test code = Glucose Lvl) 86 70-99 [place] 663521-11-07 15:37:00 Test Item Value Reference Range Interpretation Comments BUN (test code = BUN) 15 7-22 [place] 663521-11-07 15:37:00 Test Item Value Reference Range Interpretation Comments Creatinine Lvl (test code = Creatinine 0.56 0.50-1.40 Lvl) [place] 663521-11-07 15:37:00 Test Item Value Reference Range Interpretation Comments Sodium Lvl (test code = Sodium Lvl) 140 135-145 [place] 663521-11-07 15:37:00 Test Item Value Reference Range Interpretation Comments Potassium Lvl (test code = Potassium 3.7 3.5-5.1 Lvl) [place] [address]-11-07 15:37:00 Test Item Value Reference Range Interpretation Comments Chloride Lvl (test code = Chloride Lvl) 106 95-109 [facility]2021-11-07 15:37:00 Test Item Value Reference Range Interpretation Comments CO2 (test code = CO2) -32 [place] 663521-11-07 15:37:00 Test Item Value Reference Range Interpretation Comments Calcium Lvl (test code = Calcium Lvl) 9.9 8.5-10.5 [facility]2021-11-07 15:37:00 Test Item Value Reference Range Interpretation Comments AGAP (test code = AGAP) 10.7 10.0-20.0 [place] 663521-11-07 15:37:00 Test Item Value Reference Range Interpretation Comments eGFR (test code = eGFR) 104 [place] 663521-11-07 05:59:00 Test Item Value Reference Range Interpretation Comments Glucose Lvl (test code = Glucose Lvl) 106 70-99 [facility]2021-11-07 05:59:00 Test Item Value Reference Range Interpretation Comments BUN (test code = BUN) 12 - [place] 663521-11-07 05:59:00 Test Item Value Reference Range Interpretation Comments Creatinine Lvl (test code = Creatinine 0.47 0.50-1.40 Lvl) [facility]2021-11-07 05:59:00 Test Item Value Reference Range Interpretation Comments Sodium Lvl (test code = Sodium Lvl) 135 135-145 [facility]2021-11-07 05:59:00 Test Item Value Reference Range Interpretation Comments Potassium Lvl (test code = Potassium 5.3 3.5-5.1 Lvl) [facility]2021-11-07 05:59:00 Test Item Value Reference Range Interpretation Comments Chloride Lvl (test code = Chloride Lvl) 107 95-109 [facility]2021-11-07 05:59:00 Test Item Value Reference Range Interpretation Comments CO2 (test code = CO2) - [facility]2021-11-07 05:59:00 Test Item Value Reference Range Interpretation Comments AGAP (test code = AGAP) 12.3 10.0-20.0 [place] 663521-11-07 05:59:00 Test Item Value Reference Range Interpretation Comments Calcium Lvl (test code = Calcium Lvl) 10.4 8.5-10.5 [place] 663521-11-07 05:59:00 Test Item Value Reference Range Interpretation Comments eGFR (test code = eGFR) 111 [place]7591-11-07 05:59:00 Test Item Value Reference Range Interpretation Comments Segs (test code = Segs) 80.4 45.0-75.0 [place]7591-11-07 05:59:00 Test Item Value Reference Range Interpretation Comments Lymphocytes (test code = Lymphocytes) 13.5 20.0-40.0 [place]7591-11-07 05:59:00 Test Item Value Reference Range Interpretation Comments Monocytes (test code = Monocytes) 5.7 2.0-12.0 [place]7591-11-07 05:59:00 Test Item Value Reference Range Interpretation Comments Eosinophils (test code = Eosinophils) 0.1 <=4.0 [place]7591-11-07 05:59:00 Test Item Value Reference Range Interpretation Comments Basophils (test code = Basophils) 0.3 <=1.0 [place]7591-11-07 05:59:00 Test Item Value Reference Range Interpretation Comments Neutrophils # (test code = Neutrophils 6.3 1.5-8.1 #) [place]7591-11-07 05:59:00 Test Item Value Reference Range Interpretation Comments Lymphocytes # (test code = Lymphocytes 1.1 1.0-5.5 #) [place]7591-11-07 05:59:00 Test Item Value Reference Range Interpretation Comments Monocytes # (test code = Monocytes #) 0.4 <=0.8 [place] [address]-11-07 05:59:00 Test Item Value Reference Range Interpretation Comments WBC (test code = WBC) 7.8 3.7-10.4 [place]7591-11-07 05:59:00 Test Item Value Reference Range Interpretation Comments RBC (test code = RBC) 4.63 4.20-5.40 [place]7591-11-07 05:59:00 Test Item Value Reference Range Interpretation Comments Hgb (test code = Hgb) 12.5 12.0-16.0 [place]7591-11-07 05:59:00 Test Item Value Reference Range Interpretation Comments Hct (test code = Hct) 38.8 36.0-48.0 [place]7591-11-07 05:59:00 Test Item Value Reference Range Interpretation Comments MCV (test code = MCV) 83.9 80.0-98.0 [place]7591-11-07 05:59:00 Test Item Value Reference Range Interpretation Comments MCH (test code = MCH) 27.0 pg 27.0-31.0 [place]7591-11-07 05:59:00 Test Item Value Reference Range Interpretation Comments MCHC (test code = MCHC) 32.2 32.0-36.0 [place]7591-11-07 05:59:00 Test Item Value Reference Range Interpretation Comments RDW (test code = RDW) 16.6 11.5-14.5 [place]7591-11-07 05:59:00 Test Item Value Reference Range Interpretation Comments Platelet (test code = Platelet) 372 133-450 [place]7591-11-07 05:59:00 Test Item Value Reference Range Interpretation Comments MPV (test code = MPV) 8.2 7.4-10.4 [facility]2021-11-06 11:22:00 Test Item Value Reference Range Interpretation Comments Glucose Lvl (test code = Glucose Lvl) 83 70-99 [facility]2021-11-06 11:22:00 Test Item Value Reference Range Interpretation Comments BUN (test code = BUN) 10 7-22 [place] 663521-11-06 11:22:00 Test Item Value Reference Range Interpretation Comments Creatinine Lvl (test code = Creatinine 0.42 0.50-1.40 Lvl) [facility]2021-11-06 11:22:00 Test Item Value Reference Range Interpretation Comments Sodium Lvl (test code = Sodium Lvl) 142 135-145 [place] 663521-11-06 11:22:00 Test Item Value Reference Range Interpretation Comments Potassium Lvl (test code = Potassium 3.9 3.5-5.1 Lvl) [place] 663521-11-06 11:22:00 Test Item Value Reference Range Interpretation Comments Chloride Lvl (test code = Chloride Lvl) 111 95-109 [place] 663521-11-06 11:22:00 Test Item Value Reference Range Interpretation Comments CO2 (test code = CO2) 25 24-32 [place] [address]-11-06 11:22:00 Test Item Value Reference Range Interpretation Comments Calcium Lvl (test code = Calcium Lvl) 9.9 8.5-10.5 [place] 663521-11-06 11:22:00 Test Item Value Reference Range Interpretation Comments AGAP (test code = AGAP) 9.9 10.0-20.0 [place] 663521-11-06 11:22:00 Test Item Value Reference Range Interpretation Comments eGFR (test code = eGFR) 115 [place]7591-11-06 11:22:00 Test Item Value Reference Range Interpretation Comments Segs (test code = Segs) 46.7 45.0-75.0 [place]7591-11-06 11:22:00 Test Item Value Reference Range Interpretation Comments Lymphocytes (test code = Lymphocytes) 38.0 20.0-40.0 [place] [address]-11-06 11:22:00 Test Item Value Reference Range Interpretation Comments Monocytes (test code = Monocytes) 9.2 2.0-12.0 [place] [address]-11-06 11:22:00 Test Item Value Reference Range Interpretation Comments Eosinophils (test code = Eosinophils) 5.0 <=4.0 [place]7591-11-06 11:22:00 Test Item Value Reference Range Interpretation Comments Basophils (test code = Basophils) 1.1 <=1.0 [place] [address]-11-06 11:22:00 Test Item Value Reference Range Interpretation Comments Neutrophils # (test code = Neutrophils 1.9 1.5-8.1 #) [place]7591-11-06 11:22:00 Test Item Value Reference Range Interpretation Comments Lymphocytes # (test code = Lymphocytes 1.6 1.0-5.5 #) [place]7591-11-06 11:22:00 Test Item Value Reference Range Interpretation Comments Monocytes # (test code = Monocytes #) 0.4 <=0.8 [place]7591-11-06 11:22:00 Test Item Value Reference Range Interpretation Comments Eosinophils # (test code = Eosinophils 0.2 <=0.5 #) [facility]ressAyxyribAIXZUGNDFF9501-86-53 11:22:00 Test Item Value Reference Range Interpretation Comments WBC (test code = WBC) 4.1 3.7-10.4 [facility] CypressHqlwjekMWDEISCCTU5961-07-41 11:22:00 Test Item Value Reference Range Interpretation Comments RBC (test code = RBC) 4.31 4.20-5.40 [facility] CypressLiolzobJZFUWYFHCQ0417-56-10 11:22:00 Test Item Value Reference Range Interpretation Comments Hgb (test code = Hgb) 11.6 12.0-16.0 [facility] CypressRmhsfqgKXWPDNGCLI0337-11-59 11:22:00 Test Item Value Reference Range Interpretation Comments Hct (test code = Hct) 35.9 36.0-48.0 [facility] CypressKtkpzywRPVDAJSRGC7820-23-97 11:22:00 Test Item Value Reference Range Interpretation Comments MCV (test code = MCV) 83.2 80.0-98.0 [facility] CypressVfplztxHJNJDRTYVV3482-09-41 11:22:00 Test Item Value Reference Range Interpretation Comments MCH (test code = MCH) 26.9 pg 27.0-31.0 [facility] CypressNgpitffKCHHFOHXQR1084-20-30 11:22:00 Test Item Value Reference Range Interpretation Comments MCHC (test code = MCHC) 32.3 32.0-36.0 [facility] CypressOlvtkjwTUDSNFLBOW5166-06-75 11:22:00 Test Item Value Reference Range Interpretation Comments RDW (test code = RDW) 16.7 11.5-14.5 [facility] CypressOecnrnhTJHHJNBEKK6161-70-62 11:22:00 Test Item Value Reference Range Interpretation Comments Platelet (test code = Platelet) 317 133-450 [facility] CypressRydownfKYZQIBMUPT4489-91-91 11:22:00 Test Item Value Reference Range Interpretation Comments MPV (test code = MPV) 8.6 7.4-10.4 [facility]ressFryyzzwBEKBPVKELW6259-49-58 10:15:00 Test Item Value Reference Range Interpretation Comments Basophils # (test code = Basophils #) 0.1 <=0.2 [facility] CypressNeeyqegOCAUPBIUWK4304-04-29 10:15:00 Test Item Value Reference Range Interpretation Comments WBC (test code = WBC) 5.1 3.7-10.4 [facility] CypressTjswgftFIKLSSDGIF1902-75-86 10:15:00 Test Item Value Reference Range Interpretation Comments RBC (test code = RBC) 4.31 4.20-5.40 [facility] CypressPequhyjEFDNZIZLJV5266-83-52 10:15:00 Test Item Value Reference Range Interpretation Comments Hgb (test code = Hgb) 11.5 12.0-16.0 [facility] CypressQhxzynnNPQQHLMMMY1834-37-30 10:15:00 Test Item Value Reference Range Interpretation Comments Hct (test code = Hct) 36.1 36.0-48.0 [facility] CypressVbiimcnGYXSDHXUTF4131-75-56 10:15:00 Test Item Value Reference Range Interpretation Comments MCV (test code = MCV) 83.9 80.0-98.0 [facility] CypressNzhkpygLZXYZMZDWM8122-92-05 10:15:00 Test Item Value Reference Range Interpretation Comments MCH (test code = MCH) 26.8 pg 27.0-31.0 [facility] CypressXcnzuqwMRFLPIGBTN4303-94-16 10:15:00 Test Item Value Reference Range Interpretation Comments MCHC (test code = MCHC) 32.0 32.0-36.0 [facility] CypressDnukrajGYXZCZGOJG8799-43-28 10:15:00 Test Item Value Reference Range Interpretation Comments RDW (test code = RDW) 16.8 11.5-14.5 [facility] CypressYoluvwhWFGBUMWFDP3913-39-24 10:15:00 Test Item Value Reference Range Interpretation Comments Platelet (test code = Platelet) 319 133-450 [facility] CypressNihmpvcYOKJIAYTCJ3410-99-54 10:15:00 Test Item Value Reference Range Interpretation Comments MPV (test code = MPV) 8.3 7.4-10.4 [facility] CypressEuefiqwSDHCZMRBRV7893-23-52 10:15:00 Test Item Value Reference Range Interpretation Comments Segs (test code = Segs) 48.8 45.0-75.0 [facility] CypressArwckteJWQBIKWVEL5294-22-17 10:15:00 Test Item Value Reference Range Interpretation Comments Lymphocytes (test code = Lymphocytes) 35.6 20.0-40.0 [facility] CypressVmqdqkwJGTLPGZJSC8551-75-30 10:15:00 Test Item Value Reference Range Interpretation Comments Monocytes (test code = Monocytes) 9.7 2.0-12.0 [facility] CypressDuwjqupMUTLMZYEGC1463-89-08 10:15:00 Test Item Value Reference Range Interpretation Comments Eosinophils (test code = Eosinophils) 4.8 <=4.0 [facility] CypressWlhfjorPGEWCZBPXX4308-69-39 10:15:00 Test Item Value Reference Range Interpretation Comments Basophils (test code = Basophils) 1.1 <=1.0 [facility] CypressOsbezczEROBFYLQKI8259-71-74 10:15:00 Test Item Value Reference Range Interpretation Comments Neutrophils # (test code = Neutrophils 2.5 1.5-8.1 #) [facility] CypressHpfwqpxDLSBTGHRLP7501-62-58 10:15:00 Test Item Value Reference Range Interpretation Comments Lymphocytes # (test code = Lymphocytes 1.8 1.0-5.5 #) [facility] CypressBxhtpmyHDXSGIHNZU3774-78-76 10:15:00 Test Item Value Reference Range Interpretation Comments Monocytes # (test code = Monocytes #) 0.5 <=0.8 [facility] CypressDawlfdyZIQEIQGZUU0623-49-18 10:15:00 Test Item Value Reference Range Interpretation Comments Eosinophils # (test code = Eosinophils 0.2 <=0.5 #) [facility] HECCJKJ7385-29-32 11:36:00 Test Item Value Reference Range Interpretation Comments ABO/Rh (test code = ABO/Rh) A POS [facility] XXYAHLL2595-73-58 11:36:00 Test Item Value Reference Range Interpretation Comments Antibody Scrn (test Negative (03/01/21 6:36 code = Antibody Scrn) AM) [facility] CypressZblgfchAMUEQGTLYD4526-53-98 10:55:00 Test Item Value Reference Range Interpretation Comments Coronavirus (COVID-19) Not Detected (03/01/21 KASSY (test code = 5:55 AM) Coronavirus (COVID-19) KASSY) [facility] CypressMaibpvoXQLKQMFOXI3004-76-97 06:29:00 Test Item Value Reference Range Interpretation Comments PT (test code = PT) 13.4 s 12.0-14.7 [facility] CypressPqdmlzkNAFDZZSSEP1158-38-70 06:29:00 Test Item Value Reference Range Interpretation Comments INR (test code = INR) 1.03 1 0.85-1.17 [facility] CypressClsgcgwKXFYQYIAOP3312-97-92 06:29:00 Test Item Value Reference Range Interpretation Comments PTT (test code = PTT) 30.8 s 22.9-35.8 [place] [address]-11-04 06:29:00 Test Item Value Reference Range Interpretation Comments Eosinophils # (test code = Eosinophils 0.2 <=0.5 #) [place] 747591-11-04 06:29:00 Test Item Value Reference Range Interpretation Comments Basophils # (test code = Basophils #) 0.1 <=0.2 [place] 663521-09-27 10:36:00 Test Item Value Reference Range Interpretation Comments Glucose Lvl (test code = Glucose Lvl) 85 70-99 [place] 663521-09-27 10:36:00 Test Item Value Reference Range Interpretation Comments BUN (test code = BUN) 19 7-22 [place] 663521-09-27 10:36:00 Test Item Value Reference Range Interpretation Comments Creatinine Lvl (test code = Creatinine 0.36 0.50-1.40 Lvl) [place] 663521-09-27 10:36:00 Test Item Value Reference Range Interpretation Comments Sodium Lvl (test code = Sodium Lvl) 139 135-145 [place] 663521-09-27 10:36:00 Test Item Value Reference Range Interpretation Comments Potassium Lvl (test code = Potassium 4.5 3.5-5.1 Lvl) [facility]2021-09-27 10:36:00 Test Item Value Reference Range Interpretation Comments Chloride Lvl (test code = Chloride Lvl) 106 95-109 [place] 663521-09-27 10:36:00 Test Item Value Reference Range Interpretation Comments CO2 (test code = CO2) 23 24-32 [place] 663521-09-27 10:36:00 Test Item Value Reference Range Interpretation Comments Calcium Lvl (test code = Calcium Lvl) 10.9 8.5-10.5 [place] 663521-09-27 10:36:00 Test Item Value Reference Range Interpretation Comments AGAP (test code = AGAP) 14.5 10.0-20.0 [place] 663521-09-27 10:36:00 Test Item Value Reference Range Interpretation Comments eGFR (test code = eGFR) 121 [place] 747591-09-27 10:36:00 Test Item Value Reference Range Interpretation Comments WBC X 10x3 (test code = WBC X 10x3) 8.0 3.7-10.4 [facility] CypressDfrosxwORIWSYSBZL4421-72-39 10:36:00 Test Item Value Reference Range Interpretation Comments RBC X 10x6 (test code = RBC X 10x6) 3.22 4.20-5.40 [place] 747591-09-27 10:36:00 Test Item Value Reference Range Interpretation Comments Hgb (test code = Hgb) 9.3 12.0-16.0 [place] 747591-09-27 10:36:00 Test Item Value Reference Range Interpretation Comments Hct (test code = Hct) 29.3 36.0-48.0 [place] 747591-09-27 10:36:00 Test Item Value Reference Range Interpretation Comments MCV (test code = MCV) 91.0 80.0-98.0 [place] 747591-09-27 10:36:00 Test Item Value Reference Range Interpretation Comments MCH (test code = MCH) 29.0 pg 27.0-31.0 [facility] CypressLfptmsxBRSSYQAEVZ9704-18-38 10:36:00 Test Item Value Reference Range Interpretation Comments MCHC (test code = MCHC) 31.8 32.0-36.0 [facility] CypressNjgelmrQDPVAWQHRK9383-05-86 10:36:00 Test Item Value Reference Range Interpretation Comments RDW (test code = RDW) 16.1 11.5-14.5 [facility] CypressZulvnplBJYDJYYCNT0117-27-40 10:36:00 Test Item Value Reference Range Interpretation Comments Platelet (test code = Platelet) 1037 133-450 [facility] CypressSsyhcjzCNSSEMRSZU0053-05-24 10:36:00 Test Item Value Reference Range Interpretation Comments MPV (test code = MPV) 7.0 7.4-10.4 [place] 747591-09-27 10:36:00 Test Item Value Reference Range Interpretation Comments RBC Morph (test code = Normal (01/22/21 5:36 RBC Morph) AM) [facility] CypressMdqmtjeSJZHXYBPFC8221-77-59 10:36:00 Test Item Value Reference Range Interpretation Comments Plt Morph (test code = Normal (01/22/21 5:36 Plt Morph) AM) [facility] CypressPicokluIDFSPZJASO0142-70-76 10:36:00 Test Item Value Reference Range Interpretation Comments Segs (test code = Segs) 62.7 45.0-75.0 [place] 747591-09-27 10:36:00 Test Item Value Reference Range Interpretation Comments Lymphocytes (test code = Lymphocytes) 25.7 20.0-40.0 [place] 747591-09-27 10:36:00 Test Item Value Reference Range Interpretation Comments Monocytes (test code = Monocytes) 8.5 2.0-12.0 [place] 747591-09-27 10:36:00 Test Item Value Reference Range Interpretation Comments Eosinophils (test code = Eosinophils) 2.4 <=4.0 [place] 747591-09-27 10:36:00 Test Item Value Reference Range Interpretation Comments Basophils (test code = Basophils) 0.7 <=1.0 [place] 747591-09-27 10:36:00 Test Item Value Reference Range Interpretation Comments Neutrophils # (test code = Neutrophils 5.0 1.5-8.1 #) [facility] CypressPqzuypvJEMGZXQTWR3581-52-11 10:36:00 Test Item Value Reference Range Interpretation Comments Lymphocytes # (test code = Lymphocytes 2.0 1.0-5.5 #) [facility] CypressVwxxyhoJYJAGXTBUA8845-48-38 10:36:00 Test Item Value Reference Range Interpretation Comments Monocytes # (test code = Monocytes #) 0.7 <=0.8 [place] 747591-09-27 10:36:00 Test Item Value Reference Range Interpretation Comments Eosinophils # (test code = Eosinophils 0.2 <=0.5 #) [facility] CypressFcblgirIZHETISWPO0312-90-99 10:36:00 Test Item Value Reference Range Interpretation Comments Basophils # (test code = Basophils #) 0.1 <=0.2 [facility] CypressOoguxywOIDRAJJJQO9263-93-16 18:34:00 Test Item Value Reference Range Interpretation Comments Vanco Lvl (test code = Vanco Lvl) 17.5 [facility]2021-09-24 07:59:00 Test Item Value Reference Range Interpretation Comments Glucose Lvl (test code = Glucose Lvl) 61 70-99 [facility]2021-09-24 07:59:00 Test Item Value Reference Range Interpretation Comments BUN (test code = BUN) 15 7-22 [place] 663521-09-24 07:59:00 Test Item Value Reference Range Interpretation Comments Creatinine Lvl (test code = Creatinine 0.20 0.50-1.40 Lvl) [place] 663521-09-24 07:59:00 Test Item Value Reference Range Interpretation Comments Sodium Lvl (test code = Sodium Lvl) 145 135-145 [place] 663521-09-24 07:59:00 Test Item Value Reference Range Interpretation Comments Potassium Lvl (test code = Potassium 3.8 3.5-5.1 Lvl) [place] 663521-09-24 07:59:00 Test Item Value Reference Range Interpretation Comments Chloride Lvl (test code = Chloride Lvl) 112 95-109 [place] 663521-09-24 07:59:00 Test Item Value Reference Range Interpretation Comments CO2 (test code = CO2) 22 24-32 [place] 663521-09-24 07:59:00 Test Item Value Reference Range Interpretation Comments Calcium Lvl (test code = Calcium Lvl) 8.9 8.5-10.5 [place] 663521-09-24 07:59:00 Test Item Value Reference Range Interpretation Comments AGAP (test code = AGAP) 14.8 10.0-20.0 [place] 663521-09-24 07:59:00 Test Item Value Reference Range Interpretation Comments eGFR (test code = eGFR) 148 [place] 747591-09-24 07:59:00 Test Item Value Reference Range Interpretation Comments WBC X 10x3 (test code = WBC X 10x3) 9.0 3.7-10.4 [place] 747591-09-24 07:59:00 Test Item Value Reference Range Interpretation Comments RBC (test code = RBC) 2.43 4.20-5.40 [place] 747591-09-24 07:59:00 Test Item Value Reference Range Interpretation Comments Hgb (test code = Hgb) 7.4 12.0-16.0 [place] 747591-09-24 07:59:00 Test Item Value Reference Range Interpretation Comments Hct (test code = Hct) 22.4 36.0-48.0 [place] 747591-09-24 07:59:00 Test Item Value Reference Range Interpretation Comments MCV (test code = MCV) 92.3 80.0-98.0 [facility] CypressOlyqiycACUUIDFJUJ5098-98-34 07:59:00 Test Item Value Reference Range Interpretation Comments MCH (test code = MCH) 30.4 pg 27.0-31.0 [facility] CypressFqrsccxKPANWIKQIV2333-35-15 07:59:00 Test Item Value Reference Range Interpretation Comments MCHC (test code = MCHC) 32.9 32.0-36.0 [facility] CypressPrdamygFOVBLLHYBF4642-98-14 07:59:00 Test Item Value Reference Range Interpretation Comments RDW (test code = RDW) 16.1 11.5-14.5 [facility] CypressDmpbifzATYVHVYJEI9584-86-95 07:59:00 Test Item Value Reference Range Interpretation Comments Platelet (test code = Platelet) 261 145-450 [facility] CypressIbbhbugKTXMTYIHOL3628-90-68 07:59:00 Test Item Value Reference Range Interpretation Comments MPV (test code = MPV) 7.3 7.4-10.4 [facility] CypressLkicdkyBESGBHWBCZ8178-14-00 07:59:00 Test Item Value Reference Range Interpretation Comments Neutrophils # (test code = Neutrophils 6.4 1.5-8.1 #) [facility] CypressMnpfgjsQOMOSLCNDX1767-13-79 07:59:00 Test Item Value Reference Range Interpretation Comments Lymphocytes # (test code = Lymphocytes 1.7 1.0-5.5 #) [facility] CypressMtadaryFCBBZNQSHO5376-99-39 07:59:00 Test Item Value Reference Range Interpretation Comments Monocytes # (test code = Monocytes #) 0.4 <=0.8 [place] 747591-09-24 07:59:00 Test Item Value Reference Range Interpretation Comments Eosinophils # (test code = Eosinophils 0.4 <=0.5 #) [facility] CypressBercoxdFJXJVAFGFQ3734-36-49 07:59:00 Test Item Value Reference Range Interpretation Comments Basophils # (test code = Basophils #) 0.1 <=0.2 [place] 747591-09-24 07:59:00 Test Item Value Reference Range Interpretation Comments Segs (test code = Segs) 71.0 45.0-75.0 [facility] CypressRiqkzfcSWBEEBERPS5125-99-00 07:59:00 Test Item Value Reference Range Interpretation Comments Bands (test code = Bands) 0.0 <=11.0 [facility] CypressNphadjpQCMEAFSFSF7280-41-36 07:59:00 Test Item Value Reference Range Interpretation Comments Lymphocytes (test code = Lymphocytes) 19.0 20.0-40.0 [facility] CypressPxabejbMTLYWEMORQ1172-76-28 07:59:00 Test Item Value Reference Range Interpretation Comments Monocytes (test code = Monocytes) 5.0 2.0-12.0 [facility] CypressAaadbulRVKDNVQWNC6896-24-67 07:59:00 Test Item Value Reference Range Interpretation Comments Eosinophils (test code = Eosinophils) 4.0 <=4.0 [facility] CypressWmwbjrmKARJKWVUBD9865-59-04 07:59:00 Test Item Value Reference Range Interpretation Comments Basophils (test code = Basophils) 1.0 <=1.0 [facility] CypressZuymtvhDFFWKMNRRG1907-69-58 07:59:00 Test Item Value Reference Range Interpretation Comments Atypical Lymphs (test code = Atypical 0.0 Lymphs) [facility] CypressLvmitkqTEJGNUVVYZ8446-78-26 07:59:00 Test Item Value Reference Range Interpretation Comments Plt Morph (test code = Normal (01/19/21 2:59 Plt Morph) AM) [facility] CypressMzsxwneVYDPDTBHGT5912-93-04 07:59:00 Test Item Value Reference Range Interpretation Comments Tot Cell Ct (test code = Tot Cell Ct) 100 1 [facility] CypressAdjbjawVMCCTJAGOK8435-10-78 07:59:00 Test Item Value Reference Range Interpretation Comments Anisocyte (test code = 1+ *ABN*(01/19/21 Anisocyte) 2:59 AM) [facility] CypressSakyeopRXBIOXIYOJ3723-64-31 07:59:00 Test Item Value Reference Range Interpretation Comments Macrocyte (test code = 1+ *ABN*(01/19/21 Macrocyte) 2:59 AM) [facility] CypressKwhuphaETKTVRSOMR1788-88-72 07:59:00 Test Item Value Reference Range Interpretation Comments Hypochrom (test code = 1+ (01/19/21 2:59 AM) Hypochrom) [facility] CypressLzsnvobTMDUFYTZSL9097-26-03 07:59:00 Test Item Value Reference Range Interpretation Comments Polychrom (test code = Moderate *ABN*(01/19/21 Polychrom) 2:59 AM) [facility] CypressUhxjxwvQRJEHFCWLF6313-49-85 07:59:00 Test Item Value Reference Range Interpretation Comments Baso Stipplin (test code = Baso Occasional Stipplin) [facility] CypressHydegfsVFNUPWJWGB9261-16-70 07:59:00 Test Item Value Reference Range Interpretation Comments Vancomycin AUC (test code = Vancomycin no gt AUC) [facility]AasjuxeNAVSIAOZHBVQP5864-34-06 15:05:00 Test Item Value Reference Range Interpretation Comments hCG Tot (test code = hCG Tot) 2 [facility]2021-09-22 05:19:00 Test Item Value Reference Range Interpretation Comments Glucose Lvl (test code = Glucose Lvl) 131 70-99 [facility]2021-09-22 05:19:00 Test Item Value Reference Range Interpretation Comments BUN (test code = BUN) 21 -22 [facility]2021-09-22 05:19:00 Test Item Value Reference Range Interpretation Comments Creatinine Lvl (test code = Creatinine 0.29 0.50-1.40 Lvl) [facility]2021-09-22 05:19:00 Test Item Value Reference Range Interpretation Comments Sodium Lvl (test code = Sodium Lvl) 142 135-145 [facility]2021-09-22 05:19:00 Test Item Value Reference Range Interpretation Comments Potassium Lvl (test code = Potassium 4.7 3.5-5.1 Lvl) [facility]2021-09-22 05:19:00 Test Item Value Reference Range Interpretation Comments Chloride Lvl (test code = Chloride Lvl) 108 95-109 [facility]2021-09-22 05:19:00 Test Item Value Reference Range Interpretation Comments CO2 (test code = CO2) 29 24-32 [facility]2021-09-22 05:19:00 Test Item Value Reference Range Interpretation Comments Calcium Lvl (test code = Calcium Lvl) 10.2 8.5-10.5 [facility]2021-09-22 05:19:00 Test Item Value Reference Range Interpretation Comments AGAP (test code = AGAP) 9.7 10.0-20.0 [facility]2021-09-22 05:19:00 Test Item Value Reference Range Interpretation Comments eGFR (test code = eGFR) 130 [facility]2021-09-22 05:19:00 Test Item Value Reference Range Interpretation Comments Magnesium Lvl (test code = Magnesium 2.1 1.8-2.4 Lvl) [facility] CypressCodrxwoYBLDKAJFDJ4929-40-70 05:19:00 Test Item Value Reference Range Interpretation Comments WBC (test code = WBC) 12.3 3.7-10.4 [facility] CypressPddfscwEOEURDNOEC0246-46-39 05:19:00 Test Item Value Reference Range Interpretation Comments RBC (test code = RBC) 2.60 4.20-5.40 [facility] CypressAqlxeiaHOMUQCSOKE4228-56-61 05:19:00 Test Item Value Reference Range Interpretation Comments Hgb (test code = Hgb) 7.9 12.0-16.0 [facility] CypressPqdsizxORJBYIGCAW6657-04-72 05:19:00 Test Item Value Reference Range Interpretation Comments Hct (test code = Hct) 24.0 36.0-48.0 [facility] CypressZmocqtlWGZZUUDEKA6807-51-84 05:19:00 Test Item Value Reference Range Interpretation Comments MCV (test code = MCV) 92.6 80.0-98.0 [facility] CypressLtkfrtqGZHXECFIKJ1411-97-26 05:19:00 Test Item Value Reference Range Interpretation Comments MCH (test code = MCH) 30.4 pg 27.0-31.0 [facility] CypressHeohvplIWVKRGHGPZ9323-97-98 05:19:00 Test Item Value Reference Range Interpretation Comments MCHC (test code = MCHC) 32.9 32.0-36.0 [facility] CypressSwrsriqHQBQPZINPU3432-96-50 05:19:00 Test Item Value Reference Range Interpretation Comments RDW (test code = RDW) 16.0 11.5-14.5 [facility] CypressUmxjpcwPYFLLORNEV8542-00-12 05:19:00 Test Item Value Reference Range Interpretation Comments Platelet (test code = Platelet) 703 133-450 [facility] CypressLekimenGVNHJAUPJG4700-76-92 05:19:00 Test Item Value Reference Range Interpretation Comments MPV (test code = MPV) 7.3 7.4-10.4 [facility] CypressPtbdwwcCVHWJXGHPW6129-15-39 05:19:00 Test Item Value Reference Range Interpretation Comments Segs (test code = Segs) 76.3 45.0-75.0 [facility] CypressUncexeiDYPPDBNTME8096-90-90 05:19:00 Test Item Value Reference Range Interpretation Comments Lymphocytes (test code = Lymphocytes) 13.0 20.0-40.0 [place] 747591-09-22 05:19:00 Test Item Value Reference Range Interpretation Comments Monocytes (test code = Monocytes) 6.9 2.0-12.0 [place] 747591-09-22 05:19:00 Test Item Value Reference Range Interpretation Comments Eosinophils (test code = Eosinophils) 3.1 <=4.0 [place] 747591-09-22 05:19:00 Test Item Value Reference Range Interpretation Comments Basophils (test code = Basophils) 0.7 <=1.0 [place] 747591-09-22 05:19:00 Test Item Value Reference Range Interpretation Comments Neutrophils # (test code = Neutrophils 9.3 1.5-8.1 #) [facility] CypressLvdrmziDTOBXWKAYW2770-62-40 05:19:00 Test Item Value Reference Range Interpretation Comments Lymphocytes # (test code = Lymphocytes 1.6 1.0-5.5 #) [place] 747591-09-22 05:19:00 Test Item Value Reference Range Interpretation Comments Monocytes # (test code = Monocytes #) 0.8 <=0.8 [place] 747591-09-22 05:19:00 Test Item Value Reference Range Interpretation Comments Eosinophils # (test code = Eosinophils 0.4 <=0.5 #) [place] 747591-09-22 05:19:00 Test Item Value Reference Range Interpretation Comments Basophils # (test code = Basophils #) 0.1 <=0.2 [facility]2021-09-21 10:16:00 Test Item Value Reference Range Interpretation Comments Magnesium Lvl (test code = Magnesium 2.4 1.8-2.4 Lvl) [facility]2021-09-21 10:16:00 Test Item Value Reference Range Interpretation Comments Glucose Lvl (test code = Glucose Lvl) 152 70-99 [facility]2021-09-21 10:16:00 Test Item Value Reference Range Interpretation Comments BUN (test code = BUN) 20 7-22 [place] 663521-09-21 10:16:00 Test Item Value Reference Range Interpretation Comments Creatinine Lvl (test code = Creatinine 0.36 0.50-1.40 Lvl) [facility]2021-09-21 10:16:00 Test Item Value Reference Range Interpretation Comments Sodium Lvl (test code = Sodium Lvl) 143 135-145 [facility]2021-09-21 10:16:00 Test Item Value Reference Range Interpretation Comments Potassium Lvl (test code = Potassium 4.4 3.5-5.1 Lvl) [facility]2021-09-21 10:16:00 Test Item Value Reference Range Interpretation Comments Chloride Lvl (test code = Chloride Lvl) 110 95-109 [place] 663521-09-21 10:16:00 Test Item Value Reference Range Interpretation Comments CO2 (test code = CO2) 28 24-32 [place] 663521-09-21 10:16:00 Test Item Value Reference Range Interpretation Comments Calcium Lvl (test code = Calcium Lvl) 10.2 8.5-10.5 [place] 663521-09-21 10:16:00 Test Item Value Reference Range Interpretation Comments AGAP (test code = AGAP) 9.4 10.0-20.0 [facility]2021-09-21 10:16:00 Test Item Value Reference Range Interpretation Comments eGFR (test code = eGFR) 122 [facility] CypressQebmrpoMYSKCFSVOG3319-19-98 10:16:00 Test Item Value Reference Range Interpretation Comments Segs (test code = Segs) 82.5 45.0-75.0 [facility] CypressEerrdnzAYDJOJVYYP7384-81-39 10:16:00 Test Item Value Reference Range Interpretation Comments Lymphocytes (test code = Lymphocytes) 8.4 20.0-40.0 [facility] CypressEklolsyDKZUOMFFXZ4430-49-38 10:16:00 Test Item Value Reference Range Interpretation Comments Monocytes (test code = Monocytes) 6.3 2.0-12.0 [place] 747591-09-21 10:16:00 Test Item Value Reference Range Interpretation Comments Eosinophils (test code = Eosinophils) 2.5 <=4.0 [place] 747591-09-21 10:16:00 Test Item Value Reference Range Interpretation Comments Basophils (test code = Basophils) 0.3 <=1.0 [place]7591-09-21 10:16:00 Test Item Value Reference Range Interpretation Comments Neutrophils # (test code = Neutrophils 10.8 1.5-8.1 #) [place] 747591-09-21 10:16:00 Test Item Value Reference Range Interpretation Comments Lymphocytes # (test code = Lymphocytes 1.1 1.0-5.5 #) [facility]GmafmbyUNRXWDVEYX9229-04-95 10:16:00 Test Item Value Reference Range Interpretation Comments Monocytes # (test code = Monocytes #) 0.8 <=0.8 [facility] CypressNpyleqeIMFXAHTBKP4814-65-81 10:16:00 Test Item Value Reference Range Interpretation Comments Eosinophils # (test code = Eosinophils 0.3 <=0.5 #) [facility] CypressFkpudacUZERBBSVVF1550-55-88 10:16:00 Test Item Value Reference Range Interpretation Comments WBC (test code = WBC) 13.0 3.7-10.4 [facility] CypressYkhvrkzWWFHBFAGLZ5433-17-19 10:16:00 Test Item Value Reference Range Interpretation Comments RBC (test code = RBC) 2.42 4.20-5.40 [facility] CypressItaculbJSHRJRROGH6519-41-79 10:16:00 Test Item Value Reference Range Interpretation Comments Hgb (test code = Hgb) 7.4 12.0-16.0 [facility] CypressMmqdhnrJJMMUZOAUE4970-57-70 10:16:00 Test Item Value Reference Range Interpretation Comments Hct (test code = Hct) 22.1 36.0-48.0 [facility] CypressMrdgclxDLJROTWUHO9982-96-78 10:16:00 Test Item Value Reference Range Interpretation Comments MCV (test code = MCV) 91.3 80.0-98.0 [facility] CypressFiyxfcqVHYZAOODZT6897-35-26 10:16:00 Test Item Value Reference Range Interpretation Comments MCH (test code = MCH) 30.7 pg 27.0-31.0 [facility] CypressRcxtjloCWZLRSBGXH8061-75-24 10:16:00 Test Item Value Reference Range Interpretation Comments MCHC (test code = MCHC) 33.6 32.0-36.0 [facility] CypressPxqrbonKTSEWRRUVH7267-66-07 10:16:00 Test Item Value Reference Range Interpretation Comments RDW (test code = RDW) 15.7 11.5-14.5 [facility] CypressKygzglgRVVEWJJRFC1867-60-94 10:16:00 Test Item Value Reference Range Interpretation Comments Platelet (test code = Platelet) 404 464-179 [facility] CypressCbdedrzYZVGUVHHGD6772-56-69 10:16:00 Test Item Value Reference Range Interpretation Comments MPV (test code = MPV) 7.2 7.4-10.4 [facility]JNML5418[facility]16-39 16:50:00 Test Item Value Reference Range Interpretation Comments PT (test code = PT) 12.8 s 12.0-14.7 [facility] HospitalHenrtrzBVOOUQRSFB4658-02-74 16:50:00 Test Item Value Reference Range Interpretation Comments INR (test code = INR) 0.97 1 0.85-1.17 [facility] HospitalCfvynnkRSBPLSAQMV4660-31-22 16:50:00 Test Item Value Reference Range Interpretation Comments PTT (test code = PTT) 37.3 s 22.9-35.8 [facility] CypressCulture: [id number] 10:34:00 Test Item Value Reference Range Interpretation Comments Culture: Urine (test <10,000 CFU/mL Skin code = Culture: Urine) [facility] AND [id number] 09:58:00 Test Item Value Reference Range Interpretation Comments UA Color (test code = Yellow *NA*(01/15/21 UA Color) 4:58 AM) [facility] AND [id number] 09:58:00 Test Item Value Reference Range Interpretation Comments UA Turbidity (test code Slight *ABN*(01/15/21 = UA Turbidity) 4:58 AM) [facility] AND [id number] 09:58:00 Test Item Value Reference Range Interpretation Comments UA Spec Grav (test code = UA Spec 1.021 1 Grav) [facility] AND [id number] 09:58:00 Test Item Value Reference Range Interpretation Comments UA pH (test code = UA pH) 7.0 1 5.0-8.0 [facility] AND [id number] 09:58:00 Test Item Value Reference Range Interpretation Comments UA Protein (test code = UA Negative mg/dL Protein) [facility] AND [id number] 09:58:00 Test Item Value Reference Range Interpretation Comments UA Glucose (test code = UA Negative mg/dL Glucose) [facility] AND [id number] 09:58:00 Test Item Value Reference Range Interpretation Comments UA Ketones (test code = UA Negative mg/dL Ketones) [facility] AND [id number] 09:58:00 Test Item Value Reference Range Interpretation Comments UA Bili (test code = Negative *NA*(01/15/21 UA Bili) 4:58 AM) [facility] [id number] 09:58:00 Test Item Value Reference Range Interpretation Comments UA Blood (test code = Negative (01/15/21 4:58 UA Blood) AM) [facility] [id number] 09:58:00 Test Item Value Reference Range Interpretation Comments UA Urobilinogen (test code = UA 4.0 0.1-1.0 Urobilinogen) [facility] [id number] 09:58:00 Test Item Value Reference Range Interpretation Comments UA Nitrite (test code Negative (01/15/21 4:58 = UA Nitrite) AM) [facility] [id number] 09:58:00 Test Item Value Reference Range Interpretation Comments UA Leuk Est (test Moderate *ABN*(01/15/21 code = UA Leuk Est) 4:58 AM) [facility] [id number] 09:58:00 Test Item Value Reference Range Interpretation Comments UA Sq Epi (test code = UA Sq Occasional /LPF Epi) [facility] [id number] 09:58:00 Test Item Value Reference Range Interpretation Comments UA WBC (test code = UA WBC) 57 <=5 [facility] [id number] 09:58:00 Test Item Value Reference Range Interpretation Comments UA RBC (test code = UA RBC) 3 <=2 [facility] [id number] 09:58:00 Test Item Value Reference Range Interpretation Comments UA Bacteria (test code = UA Occasional /HPF Bacteria) [facility] [id number] 09:58:00 Test Item Value Reference Range Interpretation Comments UA Mucus (test code = UA Mucus) Few /LPF [facility] [id number] 09:58:00 Test Item Value Reference Range Interpretation Comments UA Hyal Cast (test code = UA Hyal Cast) 1 <=2 [facility] [id number] 09:58:00 Test Item Value Reference Range Interpretation Comments UA Trans Epi (test code = UA Trans Epi) 4 [facility] YkvsnguAQOEPEOBAQ1604-08-75 09:47:00 Test Item Value Reference Range Interpretation Comments Coronavirus (COVID-19) Not Detected (01/15/21 KASSY (test code = 4:47 AM) Coronavirus (COVID-19) KASSY) [facility] [employer] [id number] 09:31:00 Test Item Value Reference Range Interpretation Comments ABO/Rh (test code = ABO/Rh) A POS [facility] [employer] [id number] 09:31:00 Test Item Value Reference Range Interpretation Comments Antibody Scrn (test Negative (01/15/21 4:31 code = Antibody Scrn) AM) [facility] [employer] [id number] 09:31:00 Test Item Value Reference Range Interpretation Comments Magnesium Lvl (test code = Magnesium 2.2 1.8-2.4 Lvl) [facility] StpbquhOLBXUWHKNW3926-01-31 09:31:00 Test Item Value Reference Range Interpretation Comments PT (test code = PT) 12.9 s 12.0-14.7 [facility] BnpoingJQOFOMZZHU0298-17-57 09:31:00 Test Item Value Reference Range Interpretation Comments INR (test code = INR) 0.98 1 0.85-1.17 [facility] KpgbpykFDMSGBDZYI3715-43-39 09:31:00 Test Item Value Reference Range Interpretation Comments PTT (test code = PTT) 38.9 s 22.9-35.8 [facility] LobmrbfMLVHGAXSIK6375-72-02 09:31:00 Test Item Value Reference Range Interpretation Comments Basophils # (test code = Basophils #) 0.1 <=0.2 [facility] JxrrypbQSKZTJLVKK7828-91-39 01:28:00 Test Item Value Reference Range Interpretation Comments PT (test code = PT) 12.6 s 12.0-14.7 [facility] YiqxjnuNFVGAITSQG2177-00-55 01:28:00 Test Item Value Reference Range Interpretation Comments INR (test code = INR) 0.95 1 0.85-1.17 [facility] SqyedqlEOIQHDOAKO7615-05-43 01:28:00 Test Item Value Reference Range Interpretation Comments PTT (test code = PTT) 51.1 s 22.9-35.8 [facility]PGMEIJL9462[facility]-32 09:57:00 Test Item Value Reference Range Interpretation Comments Vancomycin AUC (test code = Vancomycin 20.2 AUC) [facility] CypressNipsuopRDDOLQDIFG8949-35-11 11:35:00 Test Item Value Reference Range Interpretation Comments Bands (test code = Bands) 0.0 <=11.0 [place] 747591-09-18 11:35:00 Test Item Value Reference Range Interpretation Comments Metamyelocytes (test code = 1.0 <=1.0 Metamyelocytes) [facility] CypressRcgcxkpZAUXOSGKXE1433-54-28 11:35:00 Test Item Value Reference Range Interpretation Comments Myelocytes (test code = Myelocytes) 5.0 [facility] CypressMbvzyvkAZYKDKGEKB6502-15-14 11:35:00 Test Item Value Reference Range Interpretation Comments Atypical Lymphs (test code = Atypical 0.0 Lymphs) [facility] CypressXexqvooVRTPVIIYWH7613-15-60 11:35:00 Test Item Value Reference Range Interpretation Comments NRBC (test code = NRBC) 1 [facility] CypressDvlxsizWOQTGDNECI1703-91-78 11:35:00 Test Item Value Reference Range Interpretation Comments Anisocyte (test code = 1+ *ABN*(01/13/21 Anisocyte) 6:35 AM) [facility] CypressKquuemsTUGXBTDSZV1971-37-11 11:35:00 Test Item Value Reference Range Interpretation Comments Macrocyte (test code = 1+ *ABN*(01/13/21 Macrocyte) 6:35 AM) [facility] CypressXmyvxlyVBIZQUXCJI5756-03-57 11:35:00 Test Item Value Reference Range Interpretation Comments Polychrom (test code = Moderate *ABN*(01/13/21 Polychrom) 6:35 AM) [facility]ressXeqxfveHMBMIJBJIW8358-67-31 05:12:00 Test Item Value Reference Range Interpretation Comments Bands (test code = Bands) 2.0 <=11.0 [facility] CypressQoerddpNBHOOUEFNI9142-90-60 05:12:00 Test Item Value Reference Range Interpretation Comments Metamyelocytes (test code = 4.0 <=1.0 Metamyelocytes) [facility] CypressAeicuuhSWUDFCUXPM1596-87-04 05:12:00 Test Item Value Reference Range Interpretation Comments Myelocytes (test code = Myelocytes) 2.0 [facility] CypressGpqkeorIGHJYXOPVA4932-28-65 05:12:00 Test Item Value Reference Range Interpretation Comments Atypical Lymphs (test code = Atypical 0.0 Lymphs) [facility] CypressMzumushIDMOXTDZFD3993-54-97 05:19:00 Test Item Value Reference Range Interpretation Comments Metamyelocytes (test code = 2.0 <=1.0 Metamyelocytes) [facility] CypressMxqsnrrPWSRLSXXZM7598-57-76 05:19:00 Test Item Value Reference Range Interpretation Comments Myelocytes (test code = Myelocytes) 3.0 [facility] CypressEoorwtsZUIPCYUGYP7369-19-73 05:36:00 Test Item Value Reference Range Interpretation Comments NRBC (test code = NRBC) 1 [facility] CypressIyeafalRXDWHUBZOH7093-43-15 05:36:00 Test Item Value Reference Range Interpretation Comments Plt Morph (test code = Normal (01/10/21 12:36 Plt Morph) AM) [facility] CypressKxgftapAEOUGILYDV7133-01-74 05:36:00 Test Item Value Reference Range Interpretation Comments Anisocyte (test code = 1+ *ABN*(01/10/21 Anisocyte) 12:36 AM) [facility] CypressJarsafpQMKMMKORTD8320-98-77 05:36:00 Test Item Value Reference Range Interpretation Comments Polychrom (test code = Polychrom) slight [facility] CypressQjoasbeEOEETLYMTZ1854-28-72 08:28:00 Test Item Value Reference Range Interpretation Comments RBC Morph (test code = Normal (01/09/21 3:28 RBC Morph) AM) [facility] CypressIhnhshmXIEWVIETKX3487-91-25 08:28:00 Test Item Value Reference Range Interpretation Comments Plt Morph (test code = Normal (01/09/21 3:28 Plt Morph) AM) [facility] BANK [id number] 18:26:00 Test Item Value Reference Range Interpretation Comments RBC product (test code Product available = RBC product) (01/04/21 1:26 PM) [facility]ressF[facility] [id number] 11:51:00 Test Item Value Reference Range Interpretation Comments Lactic Acid Lvl (test code = Lactic 3.8 0.5-2.2 Acid Lvl) [facility] [id number] 11:51:00 Test Item Value Reference Range Interpretation Comments Phosphorus (test code = Phosphorus) 3.7 2.5-4.5 [facility] [id number] 11:51:00 Test Item Value Reference Range Interpretation Comments Ca Ion WB (test code = Ca Ion WB) 1.27 1.05-1.25 [facility] [id number] 11:51:00 Test Item Value Reference Range Interpretation Comments Ca Norm WB (test code = Ca Norm WB) 1.26 1.05-1.25 [facility] [employer] [id number] 16:17:00 Test Item Value Reference Range Interpretation Comments FFP product (test code Product available = FFP product) (01/03/21 11:17 AM) [facility] [employer] [id number] 07:16:00 Test Item Value Reference Range Interpretation Comments ABO/Rh (test code = ABO/Rh) A POS [facility] [employer] [id number] 07:16:00 Test Item Value Reference Range Interpretation Comments Antibody Scrn (test Negative (01/03/21 2:16 code = Antibody Scrn) AM) [facility] [employer] [id number] 06:36:00 Test Item Value Reference Range Interpretation Comments RBC product (test code Product available = RBC product) (01/03/21 1:36 AM) [facility] [employer] [id number] 06:10:00 Test Item Value Reference Range Interpretation Comments Phosphorus (test code = Phosphorus) 3.0 2.5-4.5 [facility] [employer] [id number] 06:27:00 Test Item Value Reference Range Interpretation Comments Phosphorus (test code = Phosphorus) 4.0 2.5-4.5 [facility] [employer] [id number] 13:43:00 Test Item Value Reference Range Interpretation Comments Procalcitonin Lvl (test code = no gt <=0.10 Procalcitonin Lvl) [facility] CypressFbdkcpvSUDHBQGMLG1528-90-23 13:43:00 Test Item Value Reference Range Interpretation Comments Sed Rate (test code = Sed Rate) 75 <=20 [facility]CTXJKHQN8192[facility]73-35 13:43:00 Test Item Value Reference Range Interpretation Comments C-REACTIVE PROTEIN (test code = 162.0 C-REACTIVE PROTEIN) [facility] [employer] [id number] 05:46:00 Test Item Value Reference Range Interpretation Comments Glucose Lvl (test code = Glucose Lvl) 110 70-99 [facility] [employer] [id number] 05:46:00 Test Item Value Reference Range Interpretation Comments BUN (test code = BUN) 9 7-22 [facility] [id number] 05:46:00 Test Item Value Reference Range Interpretation Comments Creatinine Lvl (test code = Creatinine 0.38 0.50-1.40 Lvl) [place] 663521-08-30 05:46:00 Test Item Value Reference Range Interpretation Comments Sodium Lvl (test code = Sodium Lvl) 142 135-145 [place] 663521-08-30 05:46:00 Test Item Value Reference Range Interpretation Comments Potassium Lvl (test code = Potassium 3.6 3.5-5.1 Lvl) [place] 663521-08-30 05:46:00 Test Item Value Reference Range Interpretation Comments Chloride Lvl (test code = Chloride Lvl) 110 95-109 [place] 663521-08-30 05:46:00 Test Item Value Reference Range Interpretation Comments CO2 (test code = CO2) 29 24-32 [place] 663521-08-30 05:46:00 Test Item Value Reference Range Interpretation Comments Calcium Lvl (test code = Calcium Lvl) 8.8 8.5-10.5 [place] 663521-08-30 05:46:00 Test Item Value Reference Range Interpretation Comments AGAP (test code = AGAP) 6.6 10.0-20.0 [place] 663521-08-30 05:46:00 Test Item Value Reference Range Interpretation Comments eGFR (test code = eGFR) 120 [facility] CypressBwsbauhUKJBSIUDVL7879-90-07 05:46:00 Test Item Value Reference Range Interpretation Comments WBC (test code = WBC) 8.4 3.7-10.4 [place] 747591-08-30 05:46:00 Test Item Value Reference Range Interpretation Comments RBC (test code = RBC) 2.70 4.20-5.40 [place] 747591-08-30 05:46:00 Test Item Value Reference Range Interpretation Comments Hgb (test code = Hgb) 8.6 12.0-16.0 [place] 747591-08-30 05:46:00 Test Item Value Reference Range Interpretation Comments Hct (test code = Hct) 24.9 36.0-48.0 [place] 747591-08-30 05:46:00 Test Item Value Reference Range Interpretation Comments MCV (test code = MCV) 92.3 80.0-98.0 [place] [address]-08-30 05:46:00 Test Item Value Reference Range Interpretation Comments MCH (test code = MCH) 31.9 pg 27.0-31.0 [facility] CypressTgtxplcQHEHKAYWOA1366-88-89 05:46:00 Test Item Value Reference Range Interpretation Comments MCHC (test code = MCHC) 34.6 32.0-36.0 [facility] CypressNvepnyzKYTMAXRYZW0777-62-01 05:46:00 Test Item Value Reference Range Interpretation Comments RDW (test code = RDW) 16.2 11.5-14.5 [place] 747591-08-30 05:46:00 Test Item Value Reference Range Interpretation Comments Platelet (test code = Platelet) 381 133-450 [facility] CypressAanvvvsCIZBCGTGYP7391-44-93 05:46:00 Test Item Value Reference Range Interpretation Comments MPV (test code = MPV) 6.8 7.4-10.4 [facility] CypressMnweqelQBMLIJPLQG5127-16-88 05:46:00 Test Item Value Reference Range Interpretation Comments Segs (test code = Segs) 65.4 45.0-75.0 [facility] CypressGlxteykRUQAJUJJTA7288-60-17 05:46:00 Test Item Value Reference Range Interpretation Comments Lymphocytes (test code = Lymphocytes) 21.2 20.0-40.0 [facility] CypressFbdpoehDQMMFWDUZA2622-15-57 05:46:00 Test Item Value Reference Range Interpretation Comments Monocytes (test code = Monocytes) 12.0 2.0-12.0 [facility] CypressJisedxtFCKMNULWFS6657-02-30 05:46:00 Test Item Value Reference Range Interpretation Comments Eosinophils (test code = Eosinophils) 1.0 <=4.0 [facility] CypressDmflfyxCQYFGAWVTX5110-21-05 05:46:00 Test Item Value Reference Range Interpretation Comments Basophils (test code = Basophils) 0.4 <=1.0 [facility] CypressXzaohwnMJUYCZQOSD6786-74-97 05:46:00 Test Item Value Reference Range Interpretation Comments Neutrophils # (test code = Neutrophils 5.5 1.5-8.1 #) [facility] CypressQnptxbkDXTPBBJRQX3232-75-80 05:46:00 Test Item Value Reference Range Interpretation Comments Lymphocytes # (test code = Lymphocytes 1.8 1.0-5.5 #) [facility] CypressErchsjfFJARAPHTAZ9668-31-62 05:46:00 Test Item Value Reference Range Interpretation Comments Monocytes # (test code = Monocytes #) 1.0 <=0.8 [place] 747591-08-30 05:46:00 Test Item Value Reference Range Interpretation Comments Eosinophils # (test code = Eosinophils 0.1 <=0.5 #) [place] 663521-08-29 07:37:00 Test Item Value Reference Range Interpretation Comments Glucose Lvl (test code = Glucose Lvl) 100 70-99 [place] 663521-08-29 07:37:00 Test Item Value Reference Range Interpretation Comments BUN (test code = BUN) 13 7-22 [place] 663521-08-29 07:37:00 Test Item Value Reference Range Interpretation Comments Creatinine Lvl (test code = Creatinine 0.34 0.50-1.40 Lvl) [place] 663521-08-29 07:37:00 Test Item Value Reference Range Interpretation Comments Sodium Lvl (test code = Sodium Lvl) 143 135-145 [place] 663521-08-29 07:37:00 Test Item Value Reference Range Interpretation Comments Potassium Lvl (test code = Potassium 3.7 3.5-5.1 Lvl) [place] 663521-08-29 07:37:00 Test Item Value Reference Range Interpretation Comments Chloride Lvl (test code = Chloride Lvl) 111 95-109 [place] 663521-08-29 07:37:00 Test Item Value Reference Range Interpretation Comments CO2 (test code = CO2) 29 24-32 [place] 663521-08-29 07:37:00 Test Item Value Reference Range Interpretation Comments Calcium Lvl (test code = Calcium Lvl) 8.6 8.5-10.5 [place] 663521-08-29 07:37:00 Test Item Value Reference Range Interpretation Comments AGAP (test code = AGAP) 6.7 10.0-20.0 [place] 663521-08-29 07:37:00 Test Item Value Reference Range Interpretation Comments eGFR (test code = eGFR) 124 [place] 747591-08-29 07:37:00 Test Item Value Reference Range Interpretation Comments Segs (test code = Segs) 64.0 45.0-75.0 [place] 747591-08-29 07:37:00 Test Item Value Reference Range Interpretation Comments Lymphocytes (test code = Lymphocytes) 21.4 20.0-40.0 [place] 747591-08-29 07:37:00 Test Item Value Reference Range Interpretation Comments Monocytes (test code = Monocytes) 13.4 2.0-12.0 [place] 747591-08-29 07:37:00 Test Item Value Reference Range Interpretation Comments Eosinophils (test code = Eosinophils) 0.8 <=4.0 [place] 747591-08-29 07:37:00 Test Item Value Reference Range Interpretation Comments Basophils (test code = Basophils) 0.4 <=1.0 [place] 747591-08-29 07:37:00 Test Item Value Reference Range Interpretation Comments Neutrophils # (test code = Neutrophils 6.0 1.5-8.1 #) [facility] CypressJyrkhjhWTFMVMMFLT4160-55-78 07:37:00 Test Item Value Reference Range Interpretation Comments Lymphocytes # (test code = Lymphocytes 2.0 1.0-5.5 #) [facility] CypressXyvqafpIAJLIJCFDK8535-79-52 07:37:00 Test Item Value Reference Range Interpretation Comments Monocytes # (test code = Monocytes #) 1.3 <=0.8 [facility] CypressZcnnktmLKHHIQHVEF2444-80-16 07:37:00 Test Item Value Reference Range Interpretation Comments Eosinophils # (test code = Eosinophils 0.1 <=0.5 #) [facility] CypressRnkhqvtSEQWARPUCC0612-32-02 07:37:00 Test Item Value Reference Range Interpretation Comments WBC (test code = WBC) 9.4 3.7-10.4 [place] 747591-08-29 07:37:00 Test Item Value Reference Range Interpretation Comments RBC (test code = RBC) 2.53 4.20-5.40 [place] 747591-08-29 07:37:00 Test Item Value Reference Range Interpretation Comments Hgb (test code = Hgb) 8.2 12.0-16.0 [facility] CypressIzmhlpjNRNYIUFKOE1673-84-68 07:37:00 Test Item Value Reference Range Interpretation Comments Hct (test code = Hct) 23.4 36.0-48.0 [place] 747591-08-29 07:37:00 Test Item Value Reference Range Interpretation Comments MCV (test code = MCV) 92.5 80.0-98.0 [place] 747591-08-29 07:37:00 Test Item Value Reference Range Interpretation Comments MCH (test code = MCH) 32.4 pg 27.0-31.0 [place] 747591-08-29 07:37:00 Test Item Value Reference Range Interpretation Comments MCHC (test code = MCHC) 35.1 32.0-36.0 [place] 747591-08-29 07:37:00 Test Item Value Reference Range Interpretation Comments RDW (test code = RDW) 16.8 11.5-14.5 [place] 747591-08-29 07:37:00 Test Item Value Reference Range Interpretation Comments Platelet (test code = Platelet) 352 133-450 [place] 747591-08-29 07:37:00 Test Item Value Reference Range Interpretation Comments MPV (test code = MPV) 6.6 7.4-10.4 [facility]2021-08-28 07:13:00 Test Item Value Reference Range Interpretation Comments Glucose Lvl (test code = Glucose Lvl) 126 70-99 [place] 663521-08-28 07:13:00 Test Item Value Reference Range Interpretation Comments BUN (test code = BUN) 15 7-22 [place] 663521-08-28 07:13:00 Test Item Value Reference Range Interpretation Comments Creatinine Lvl (test code = Creatinine 0.42 0.50-1.40 Lvl) [place] 663521-08-28 07:13:00 Test Item Value Reference Range Interpretation Comments Sodium Lvl (test code = Sodium Lvl) 144 135-145 [place] 663521-08-28 07:13:00 Test Item Value Reference Range Interpretation Comments Potassium Lvl (test code = Potassium 4.3 3.5-5.1 Lvl) [place] 663521-08-28 07:13:00 Test Item Value Reference Range Interpretation Comments Chloride Lvl (test code = Chloride Lvl) 111 95-109 [place] 663521-08-28 07:13:00 Test Item Value Reference Range Interpretation Comments CO2 (test code = CO2) 27 24-32 [place] 663521-08-28 07:13:00 Test Item Value Reference Range Interpretation Comments AGAP (test code = AGAP) 10.3 10.0-20.0 [facility]2021-08-28 07:13:00 Test Item Value Reference Range Interpretation Comments Calcium Lvl (test code = Calcium Lvl) 9.0 8.5-10.5 [facility] [facility]2021-[facility]-28 07:13:00 Test Item Value Reference Range Interpretation Comments eGFR (test code = eGFR) 116 [facility]ressHhyrpddHSGORXEIQM5284-42-21 07:13:00 Test Item Value Reference Range Interpretation Comments WBC (test code = WBC) 8.5 3.7-10.4 [place]7591-08-28 07:13:00 Test Item Value Reference Range Interpretation Comments RBC (test code = RBC) 2.98 4.20-5.40 [facility] CypressFqadgmgRRZIQCJIAX4045-42-38 07:13:00 Test Item Value Reference Range Interpretation Comments Hgb (test code = Hgb) 9.1 12.0-16.0 [place] 747591-08-28 07:13:00 Test Item Value Reference Range Interpretation Comments Hct (test code = Hct) 27.3 36.0-48.0 [facility] CypressVqjtbtuUKZAMXGPKP2130-93-62 07:13:00 Test Item Value Reference Range Interpretation Comments MCV (test code = MCV) 91.7 80.0-98.0 [facility] CypressSmhzuzcVYOOZCOOBY9690-75-89 07:13:00 Test Item Value Reference Range Interpretation Comments MCH (test code = MCH) 30.7 pg 27.0-31.0 [facility] CypressOvyqkkjNOKGKPWOAA8061-31-92 07:13:00 Test Item Value Reference Range Interpretation Comments MCHC (test code = MCHC) 33.4 32.0-36.0 [place] 747591-08-28 07:13:00 Test Item Value Reference Range Interpretation Comments RDW (test code = RDW) 16.7 11.5-14.5 [place] 747591-08-28 07:13:00 Test Item Value Reference Range Interpretation Comments Platelet (test code = Platelet) 388 133-450 [place] 747591-08-28 07:13:00 Test Item Value Reference Range Interpretation Comments MPV (test code = MPV) 6.7 7.4-10.4 [facility] CypressDfdqztmQJDFGTLBQG5591-26-26 07:13:00 Test Item Value Reference Range Interpretation Comments Segs (test code = Segs) 75.1 45.0-75.0 [facility] CypressTstforxFRGVQYTAYC4126-82-00 07:13:00 Test Item Value Reference Range Interpretation Comments Lymphocytes (test code = Lymphocytes) 13.0 20.0-40.0 [facility] CypressZbuocvuFDUKSLTTRF6807-49-99 07:13:00 Test Item Value Reference Range Interpretation Comments Monocytes (test code = Monocytes) 11.8 2.0-12.0 [facility] CypressPqcnbjuHGTBRVTSMJ1679-36-36 07:13:00 Test Item Value Reference Range Interpretation Comments Basophils (test code = Basophils) 0.1 <=1.0 [facility] CypressTvsyeitKPIIYQVSVH5980-66-68 07:13:00 Test Item Value Reference Range Interpretation Comments Neutrophils # (test code = Neutrophils 6.4 1.5-8.1 #) [facility] CypressPiqufvsYUBCWEMORR1197-80-71 07:13:00 Test Item Value Reference Range Interpretation Comments Lymphocytes # (test code = Lymphocytes 1.1 1.0-5.5 #) [facility] CypressBonyazoNPTHSLAGUJ6906-34-57 07:13:00 Test Item Value Reference Range Interpretation Comments Monocytes # (test code = Monocytes #) 1.0 <=0.8 [facility] CypressF[employer] NYLSJEK7544-18-78 12:54:00 Test Item Value Reference Range Interpretation Comments RBC product (test code Product available = RBC product) (12/22/20 7:54 AM) [facility] [id number] 12:54:00 Test Item Value Reference Range Interpretation Comments FFP product (test code Product available = FFP product) (12/22/20 7:54 AM) [facility] [id number] 07:31:00 Test Item Value Reference Range Interpretation Comments Antibody Scrn (test Negative (12/22/20 2:31 code = Antibody Scrn) AM) [facility] [id number] 07:31:00 Test Item Value Reference Range Interpretation Comments ABO/Rh (test code = ABO/Rh) A POS [facility] CypressKafwixbMBUAJBXTGE7751-45-48 07:31:00 Test Item Value Reference Range Interpretation Comments PTT (test code = PTT) 26.2 s 22.9-35.8 [place] 747591-08-27 07:31:00 Test Item Value Reference Range Interpretation Comments PT (test code = PT) 11.8 s 12.0-14.7 [place] 747591-08-27 07:31:00 Test Item Value Reference Range Interpretation Comments INR (test code = INR) 0.87 1 0.85-1.17 [place] [address]-08-27 07:31:00 Test Item Value Reference Range Interpretation Comments Eosinophils (test code = Eosinophils) 1.3 <=4.0 [place] [address]-08-27 07:31:00 Test Item Value Reference Range Interpretation Comments Eosinophils # (test code = Eosinophils 0.1 <=0.5 #) [facility] CypressXkxnwuiRSGJFDIEQA6872-21-51 06:12:00 Test Item Value Reference Range Interpretation Comments Coronavirus (COVID-19) Not Detected (12/22/20 KASSY (test code = 1:12 AM) Coronavirus (COVID-19) KASSY) [facility]2021-08-24 05:56:00 Test Item Value Reference Range Interpretation Comments Magnesium Lvl (test code = Magnesium 2.2 1.8-2.4 Lvl) [facility]2021-08-23 05:26:00 Test Item Value Reference Range Interpretation Comments Glucose Lvl (test code = Glucose Lvl) 115 70-99 [place] 663521-08-23 05:26:00 Test Item Value Reference Range Interpretation Comments BUN (test code = BUN) 10 7-22 [place] 663521-08-23 05:26:00 Test Item Value Reference Range Interpretation Comments Creatinine Lvl (test code = Creatinine 0.46 0.50-1.40 Lvl) [facility]2021-08-23 05:26:00 Test Item Value Reference Range Interpretation Comments Sodium Lvl (test code = Sodium Lvl) 141 135-145 [place] 663521-08-23 05:26:00 Test Item Value Reference Range Interpretation Comments Potassium Lvl (test code = Potassium 3.3 3.5-5.1 Lvl) [place] 663521-08-23 05:26:00 Test Item Value Reference Range Interpretation Comments Chloride Lvl (test code = Chloride Lvl) 109 95-109 [place] 663521-08-23 05:26:00 Test Item Value Reference Range Interpretation Comments CO2 (test code = CO2) 28 24-32 [place] 663521-08-23 05:26:00 Test Item Value Reference Range Interpretation Comments Calcium Lvl (test code = Calcium Lvl) 8.4 8.5-10.5 [place] 663521-08-23 05:26:00 Test Item Value Reference Range Interpretation Comments AGAP (test code = AGAP) 7.3 10.0-20.0 [place] 663521-08-23 05:26:00 Test Item Value Reference Range Interpretation Comments eGFR (test code = eGFR) 112 [place] 747591-08-23 05:26:00 Test Item Value Reference Range Interpretation Comments Segs (test code = Segs) 66.8 45.0-75.0 [place] 747591-08-23 05:26:00 Test Item Value Reference Range Interpretation Comments Lymphocytes (test code = Lymphocytes) 21.4 20.0-40.0 [place] 747591-08-23 05:26:00 Test Item Value Reference Range Interpretation Comments Monocytes (test code = Monocytes) 11.3 2.0-12.0 [place] [address]-08-23 05:26:00 Test Item Value Reference Range Interpretation Comments Eosinophils (test code = Eosinophils) 0.4 <=4.0 [place] 747591-08-23 05:26:00 Test Item Value Reference Range Interpretation Comments Basophils (test code = Basophils) 0.1 <=1.0 [place] [address]-08-23 05:26:00 Test Item Value Reference Range Interpretation Comments Neutrophils # (test code = Neutrophils 5.5 1.5-8.1 #) [place] [address]-08-23 05:26:00 Test Item Value Reference Range Interpretation Comments Lymphocytes # (test code = Lymphocytes 1.8 1.0-5.5 #) [place] [address]-08-23 05:26:00 Test Item Value Reference Range Interpretation Comments Monocytes # (test code = Monocytes #) 0.9 <=0.8 [place] [address]-08-23 05:26:00 Test Item Value Reference Range Interpretation Comments WBC (test code = WBC) 8.2 3.7-10.4 [facility] CypressKbivnvyVASANDDVCG2673-98-62 05:26:00 Test Item Value Reference Range Interpretation Comments RBC (test code = RBC) 3.14 4.20-5.40 [facility] CypressNhyugbjSVSRYSLDYM8601-29-03 05:26:00 Test Item Value Reference Range Interpretation Comments Hgb (test code = Hgb) 9.6 12.0-16.0 [place] 747591-08-23 05:26:00 Test Item Value Reference Range Interpretation Comments Hct (test code = Hct) 28.3 36.0-48.0 [facility] CypressRrygmhnQLKJPHFGBR6259-52-50 05:26:00 Test Item Value Reference Range Interpretation Comments MCV (test code = MCV) 90.1 80.0-98.0 [facility] CypressGunzslnHPWQRFVZDY4894-62-28 05:26:00 Test Item Value Reference Range Interpretation Comments MCH (test code = MCH) 30.6 pg 27.0-31.0 [place] 747591-08-23 05:26:00 Test Item Value Reference Range Interpretation Comments MCHC (test code = MCHC) 33.9 32.0-36.0 [facility] CypressUxbwnciOBEBNJEIUR0220-23-44 05:26:00 Test Item Value Reference Range Interpretation Comments RDW (test code = RDW) 16.1 11.5-14.5 [place] 747591-08-23 05:26:00 Test Item Value Reference Range Interpretation Comments Platelet (test code = Platelet) 192 133-450 [facility] CypressGpacixaGVXCCJMOUF0685-93-41 05:26:00 Test Item Value Reference Range Interpretation Comments MPV (test code = MPV) 8.2 7.4-10.4 [facility] CypressNydnflvMQAWURAWSI2842-31-81 12:18:00 Test Item Value Reference Range Interpretation Comments PT (test code = PT) 13.7 s 12.0-14.7 [facility] CypressTqsavvuMIRNKPKWVM3309-71-08 12:18:00 Test Item Value Reference Range Interpretation Comments INR (test code = INR) 1.06 1 0.85-1.17 [facility] CypressGnlmdruXDACHUJKGB3478-70-22 12:18:00 Test Item Value Reference Range Interpretation Comments PTT (test code = PTT) 34.8 s 22.9-35.8 [place] 663521-08-22 09:58:00 Test Item Value Reference Range Interpretation Comments Total Protein (test code = Total 6.0 6.4-8.4 Protein) [place] 663521-08-22 09:58:00 Test Item Value Reference Range Interpretation Comments Albumin Lvl (test code = Albumin Lvl) 3.0 3.5-5.0 [place] 663521-08-22 09:58:00 Test Item Value Reference Range Interpretation Comments ALT (test code = ALT) 37 <=65 [place] 663521-08-22 09:58:00 Test Item Value Reference Range Interpretation Comments AST (test code = AST) 34 <=37 [place] 663521-08-22 09:58:00 Test Item Value Reference Range Interpretation Comments Alk Phos (test code = Alk Phos) 50 39-136 [place] 663521-08-22 09:58:00 Test Item Value Reference Range Interpretation Comments Bili Total (test code = Bili Total) 0.9 0.2-1.3 [place] 663521-08-22 09:58:00 Test Item Value Reference Range Interpretation Comments B/C Ratio (test code = B/C Ratio) 17 1 6-25 [place] 663521-08-22 09:58:00 Test Item Value Reference Range Interpretation Comments Globulin (test code = Globulin) 3.0 2.7-4.2 [place] 663521-08-22 09:58:00 Test Item Value Reference Range Interpretation Comments A/G Ratio (test code = A/G Ratio) 1.0 1 0.7-1.6 [place] 663521-08-22 09:58:00 Test Item Value Reference Range Interpretation Comments Lactic Acid Lvl (test code = Lactic 1.1 0.5-2.2 Acid Lvl) [place] 663521-08-22 09:58:00 Test Item Value Reference Range Interpretation Comments Glucose Lvl (test code = Glucose Lvl) 106 70-99 [place] 663521-08-22 09:58:00 Test Item Value Reference Range Interpretation Comments BUN (test code = BUN) 7 7-22 [place] 663521-08-22 09:58:00 Test Item Value Reference Range Interpretation Comments Creatinine Lvl (test code = Creatinine 0.41 0.50-1.40 Lvl) [place] 663521-08-22 09:58:00 Test Item Value Reference Range Interpretation Comments Sodium Lvl (test code = Sodium Lvl) 145 135-145 [place] 663521-08-22 09:58:00 Test Item Value Reference Range Interpretation Comments Potassium Lvl (test code = Potassium 3.5 3.5-5.1 Lvl) [place] 663521-08-22 09:58:00 Test Item Value Reference Range Interpretation Comments Chloride Lvl (test code = Chloride Lvl) 113 95-109 [place] 663521-08-22 09:58:00 Test Item Value Reference Range Interpretation Comments CO2 (test code = CO2) 29 24-32 [place] [address]-08-22 09:58:00 Test Item Value Reference Range Interpretation Comments Calcium Lvl (test code = Calcium Lvl) 8.8 8.5-10.5 [place] 663521-08-22 09:58:00 Test Item Value Reference Range Interpretation Comments AGAP (test code = AGAP) 6.5 10.0-20.0 [place] 663521-08-22 09:58:00 Test Item Value Reference Range Interpretation Comments eGFR (test code = eGFR) 116 [place] 747591-08-22 09:58:00 Test Item Value Reference Range Interpretation Comments WBC (test code = WBC) 7.5 3.7-10.4 [place] [address]-08-22 09:58:00 Test Item Value Reference Range Interpretation Comments RBC (test code = RBC) 3.13 4.20-5.40 [place] [address]-08-22 09:58:00 Test Item Value Reference Range Interpretation Comments Hgb (test code = Hgb) 9.8 12.0-16.0 [place] [address]-08-22 09:58:00 Test Item Value Reference Range Interpretation Comments Hct (test code = Hct) 28.0 36.0-48.0 [place] [address]-08-22 09:58:00 Test Item Value Reference Range Interpretation Comments MCV (test code = MCV) 89.5 80.0-98.0 [facility] CypressYoyqsiiCCNMZDLCXZ3561-95-43 09:58:00 Test Item Value Reference Range Interpretation Comments MCH (test code = MCH) 31.4 pg 27.0-31.0 [facility] CypressIfkxtwyVPEXLKTHSG3717-81-80 09:58:00 Test Item Value Reference Range Interpretation Comments MCHC (test code = MCHC) 35.1 32.0-36.0 [facility] CypressZtazryrFBJOMPBURH8192-50-53 09:58:00 Test Item Value Reference Range Interpretation Comments RDW (test code = RDW) 15.9 11.5-14.5 [facility] CypressQgzvntkCDHLGCCDUS8064-85-87 09:58:00 Test Item Value Reference Range Interpretation Comments Platelet (test code = Platelet) 174 133-450 [facility] CypressUezspymJYPAZNOFKT6764-57-99 09:58:00 Test Item Value Reference Range Interpretation Comments MPV (test code = MPV) 8.0 7.4-10.4 [facility] CypressSzmnhhnCJXEUOJNLJ6739-56-30 09:58:00 Test Item Value Reference Range Interpretation Comments Segs (test code = Segs) 64.1 45.0-75.0 [facility] CypressQutaneuAXSIZHJPMB2186-35-53 09:58:00 Test Item Value Reference Range Interpretation Comments Lymphocytes (test code = Lymphocytes) 22.1 20.0-40.0 [facility] CypressMtgdsoxLTSKWRVYGZ8678-75-17 09:58:00 Test Item Value Reference Range Interpretation Comments Monocytes (test code = Monocytes) 13.1 2.0-12.0 [facility] CypressIesgtkmMSLKGXIVXL6538-86-61 09:58:00 Test Item Value Reference Range Interpretation Comments Eosinophils (test code = Eosinophils) 0.3 <=4.0 [facility] CypressXvcgqptZBSLFGZRHN3186-86-04 09:58:00 Test Item Value Reference Range Interpretation Comments Basophils (test code = Basophils) 0.4 <=1.0 [place] 747591-08-22 09:58:00 Test Item Value Reference Range Interpretation Comments Neutrophils # (test code = Neutrophils 4.8 1.5-8.1 #) [facility] CypressOrrmpaaATSFZGPLCD5843-95-27 09:58:00 Test Item Value Reference Range Interpretation Comments Lymphocytes # (test code = Lymphocytes 1.7 1.0-5.5 #) [facility] CypressMxbcqhfCKAIKYUNMN8726-18-65 09:58:00 Test Item Value Reference Range Interpretation Comments Monocytes # (test code = Monocytes #) 1.0 <=0.8 [place] [address]-08-21 19:25:00 Test Item Value Reference Range Interpretation Comments Lactic Acid Lvl (test code = Lactic 3.6 0.5-2.2 Acid Lvl) [place] 663521-08-21 15:30:00 Test Item Value Reference Range Interpretation Comments Lactic Acid Lvl (test code = Lactic 2.1 0.5-2.2 Acid Lvl) [place] [address]-08-21 15:22:00 Test Item Value Reference Range Interpretation Comments PT (test code = PT) 13.3 s 12.0-14.7 [place] [address]-08-21 15:22:00 Test Item Value Reference Range Interpretation Comments INR (test code = INR) 1.02 1 0.85-1.17 [place] [address]-08-21 15:22:00 Test Item Value Reference Range Interpretation Comments PTT (test code = PTT) 25.7 s 22.9-35.8 [place] 663521-08-21 11:03:00 Test Item Value Reference Range Interpretation Comments Procalcitonin Lvl (test code = <0.05 ng/mL <=0.10 Procalcitonin Lvl) [place] [address]-08-21 08:33:00 Test Item Value Reference Range Interpretation Comments WBC (test code = WBC) 8.8 3.7-10.4 [place] 747591-08-21 08:33:00 Test Item Value Reference Range Interpretation Comments RBC (test code = RBC) 3.26 4.20-5.40 [place] [address]-08-21 08:33:00 Test Item Value Reference Range Interpretation Comments Hgb (test code = Hgb) 10.0 12.0-16.0 [place] [address]-08-21 08:33:00 Test Item Value Reference Range Interpretation Comments Hct (test code = Hct) 29.6 36.0-48.0 [place] [address]-08-21 08:33:00 Test Item Value Reference Range Interpretation Comments MCV (test code = MCV) 90.8 80.0-98.0 [address]08-21 08:33:00 Test Item Value Reference Range Interpretation Comments MCH (test code = MCH) 30.7 pg 27.0-31.0 [facility] CypressSqenunmCMRJWHMZIO3061-36-64 08:33:00 Test Item Value Reference Range Interpretation Comments MCHC (test code = MCHC) 33.8 32.0-36.0 [facility] CypressPizfxoiMAGOWCWXWD3730-78-01 08:33:00 Test Item Value Reference Range Interpretation Comments RDW (test code = RDW) 16.1 11.5-14.5 [facility] CypressJzgjpgcPUNZOLHZZF5936-30-03 08:33:00 Test Item Value Reference Range Interpretation Comments Platelet (test code = Platelet) 171 133-450 [facility] CypressRqhufoyIIDDQJRAYL2449-32-23 08:33:00 Test Item Value Reference Range Interpretation Comments MPV (test code = MPV) 8.6 7.4-10.4 [facility] CypressPlwtcnyJWVWVOWAUV7317-51-68 08:33:00 Test Item Value Reference Range Interpretation Comments Segs (test code = Segs) 79.1 45.0-75.0 [facility] CypressIuhcdfjZEVQBMRXWZ1125-91-03 08:33:00 Test Item Value Reference Range Interpretation Comments Lymphocytes (test code = Lymphocytes) 11.2 20.0-40.0 [facility] CypressOgbdcudHGEFKDGOJI5791-41-92 08:33:00 Test Item Value Reference Range Interpretation Comments Monocytes (test code = Monocytes) 9.5 2.0-12.0 [facility] CypressZehushmPOKTTSZEKL9685-78-17 08:33:00 Test Item Value Reference Range Interpretation Comments Basophils (test code = Basophils) 0.2 <=1.0 [facility] CypressAqyhznnDYKVMTWYKW5001-08-13 08:33:00 Test Item Value Reference Range Interpretation Comments Neutrophils # (test code = Neutrophils 6.9 1.5-8.1 #) [facility] CypressYzungxyXNOTBXILZA6636-49-32 08:33:00 Test Item Value Reference Range Interpretation Comments Lymphocytes # (test code = Lymphocytes 1.0 1.0-5.5 #) [facility] CypressItdpnaeNZRARWBTAT3446-95-19 08:33:00 Test Item Value Reference Range Interpretation Comments Monocytes # (test code = Monocytes #) 0.8 <=0.8 [facility] CypressCARDIMACKINAC STRAITS HOSPITALXPZQTEJ1937-37-25 06:30:00 Test Item Value Reference Range Interpretation Comments Total CK (test code = Total CK) 396 12-191 [facility] [id number] 06:30:00 Test Item Value Reference Range Interpretation Comments Troponin-I (test code = Troponin-I) no gt <=0.40 [facility]IzvdgkaEDRPKMOZBN9044-79-59 06:30:00 Test Item Value Reference Range Interpretation Comments PTT (test code = PTT) 28.0 s 22.9-35.8 [facility] [id number] 23:44:00 Test Item Value Reference Range Interpretation Comments Glucose Lvl (test code = Glucose Lvl) 161 70-99 [facility] [id number] 23:44:00 Test Item Value Reference Range Interpretation Comments BUN (test code = BUN) 7 7-22 [facility] [id number] 23:44:00 Test Item Value Reference Range Interpretation Comments Creatinine Lvl (test code = Creatinine 0.76 0.50-1.40 Lvl) [facility] [id number] 23:44:00 Test Item Value Reference Range Interpretation Comments Sodium Lvl (test code = Sodium Lvl) 143 135-145 [facility] [id number] 23:44:00 Test Item Value Reference Range Interpretation Comments Potassium Lvl (test code = Potassium 4.7 3.5-5.1 Lvl) [facility] [id number] 23:44:00 Test Item Value Reference Range Interpretation Comments Chloride Lvl (test code = Chloride Lvl) 110 95-109 [facility] [employer] [id number] 23:44:00 Test Item Value Reference Range Interpretation Comments CO2 (test code = CO2) 20 24-32 [facility] [id number] 23:44:00 Test Item Value Reference Range Interpretation Comments Calcium Lvl (test code = Calcium Lvl) 9.1 8.5-10.5 [facility] [id number] 23:44:00 Test Item Value Reference Range Interpretation Comments AGAP (test code = AGAP) 17.7 10.0-20.0 [facility] [id number] 23:44:00 Test Item Value Reference Range Interpretation Comments eGFR (test code = eGFR) 89 [facility] [id number] 23:10:00 Test Item Value Reference Range Interpretation Comments Total CK (test code = Total CK) 519 12-191 [facility] CypressJibekddSBEIMKLTWS8910-75-35 23:10:00 Test Item Value Reference Range Interpretation Comments PT (test code = PT) 15.9 s 12.0-14.7 [facility] CypressGciqnypTXZTJYTIJW1201-28-39 23:10:00 Test Item Value Reference Range Interpretation Comments INR (test code = INR) 1.29 1 0.85-1.17 [facility] [id number] 23:10:00 Test Item Value Reference Range Interpretation Comments Myoglobin (test code = Myoglobin) 211 25-72 [facility] [employer] [id number] 16:12:00 Test Item Value Reference Range Interpretation Comments RBC product (test code Product available = RBC product) (12/15/20 11:12 AM) [facility] [employer] [id number] 16:12:00 Test Item Value Reference Range Interpretation Comments FFP product (test code Product available = FFP product) (12/15/20 11:12 AM) [facility] [employer] [id number] 15:56:00 Test Item Value Reference Range Interpretation Comments ABO/Rh (test code = ABO/Rh) A POS [facility] [employer] [id number] 15:56:00 Test Item Value Reference Range Interpretation Comments Antibody Scrn (test Negative (12/13/20 code = Antibody Scrn) 10:56 AM) [facility] [id number] 15:56:00 Test Item Value Reference Range Interpretation Comments Eosinophils (test code = Eosinophils) 1.2 <=4.0 [facility] QwxzjjgCPONDXBOLD1584-17-96 15:56:00 Test Item Value Reference Range Interpretation Comments Eosinophils # (test code = Eosinophils 0.1 <=0.5 #) [facility] [id number] 18:54:00 Test Item Value Reference Range Interpretation Comments Coronavirus (COVID-19) Not Detected KASSY (test code = *NA*(12/11/20 1:54 PM) Coronavirus (COVID-19) KASSY) [facility] [employer]CHE[employer] [id number] 18:00:00 Test Item Value Reference Range Interpretation Comments Glucose Lvl (test code = Glucose Lvl) 97 70-99 [facility]2021-05-28 18:00:00 Test Item Value Reference Range Interpretation Comments BUN (test code = BUN) 18 11-16 [place] 663521-05-28 18:00:00 Test Item Value Reference Range Interpretation Comments Creatinine Lvl (test code = Creatinine 0.77 0.50-1.40 Lvl) [facility]2021-05-28 18:00:00 Test Item Value Reference Range Interpretation Comments Sodium Lvl (test code = Sodium Lvl) 147 135-145 [place] 663521-05-28 18:00:00 Test Item Value Reference Range Interpretation Comments Potassium Lvl (test code = Potassium 3.6 3.5-5.1 Lvl) [place] 663521-05-28 18:00:00 Test Item Value Reference Range Interpretation Comments Chloride Lvl (test code = Chloride Lvl) 114 95-109 [place] 663521-05-28 18:00:00 Test Item Value Reference Range Interpretation Comments CO2 (test code = CO2) [place] 663521-05-28 18:00:00 Test Item Value Reference Range Interpretation Comments Calcium Lvl (test code = Calcium Lvl) 8.5 8.5-10.5 [place] 663521-05-28 18:00:00 Test Item Value Reference Range Interpretation Comments AGAP (test code = AGAP) 8.6 10.0-20.0 [facility]2021-05-28 18:00:00 Test Item Value Reference Range Interpretation Comments eGFR (test code = eGFR) 87 [place] 663521-05-28 09:30:00 Test Item Value Reference Range Interpretation Comments Procalcitonin Lvl (test code = 0.20 <=0.10 Procalcitonin Lvl) [place] 663521-05-28 09:30:00 Test Item Value Reference Range Interpretation Comments Glucose Lvl (test code = Glucose Lvl) 111 70-99 [place] 663521-05-28 09:30:00 Test Item Value Reference Range Interpretation Comments BUN (test code = BUN) 21 - [place] 663521-05-28 09:30:00 Test Item Value Reference Range Interpretation Comments Creatinine Lvl (test code = Creatinine 0.72 0.50-1.40 Lvl) [place] 663521-05-28 09:30:00 Test Item Value Reference Range Interpretation Comments Sodium Lvl (test code = Sodium Lvl) 147 135-145 [place] 663521-05-28 09:30:00 Test Item Value Reference Range Interpretation Comments Potassium Lvl (test code = Potassium 3.5 3.5-5.1 Lvl) [place] 663521-05-28 09:30:00 Test Item Value Reference Range Interpretation Comments Chloride Lvl (test code = Chloride Lvl) 115 95-109 [place] 663521-05-28 09:30:00 Test Item Value Reference Range Interpretation Comments CO2 (test code = CO2) 28 24-32 [place] 663521-05-28 09:30:00 Test Item Value Reference Range Interpretation Comments Calcium Lvl (test code = Calcium Lvl) 9.1 8.5-10.5 [place] 663521-05-28 09:30:00 Test Item Value Reference Range Interpretation Comments Total Protein (test code = Total 5.8 6.4-8.4 Protein) [facility]2021-05-28 09:30:00 Test Item Value Reference Range Interpretation Comments Albumin Lvl (test code = Albumin Lvl) 2.4 3.5-5.0 [place] 663521-05-28 09:30:00 Test Item Value Reference Range Interpretation Comments ALT (test code = ALT) 24 <=65 [place] 663521-05-28 09:30:00 Test Item Value Reference Range Interpretation Comments AST (test code = AST) 25 <=37 [place] 663521-05-28 09:30:00 Test Item Value Reference Range Interpretation Comments Alk Phos (test code = Alk Phos) 64 39-136 [facility]2021-05-28 09:30:00 Test Item Value Reference Range Interpretation Comments Bili Total (test code = Bili Total) 0.2 0.2-1.3 [place] 663521-05-28 09:30:00 Test Item Value Reference Range Interpretation Comments AGAP (test code = AGAP) 7.5 10.0-20.0 [place] [address]-05-28 09:30:00 Test Item Value Reference Range Interpretation Comments B/C Ratio (test code = B/C Ratio) 29 1 6-25 [place] [address]-05-28 09:30:00 Test Item Value Reference Range Interpretation Comments Globulin (test code = Globulin) 3.4 2.7-4.2 [place] 663521-05-28 09:30:00 Test Item Value Reference Range Interpretation Comments A/G Ratio (test code = A/G Ratio) 0.7 1 0.7-1.6 [place] [address]-05-28 09:30:00 Test Item Value Reference Range Interpretation Comments eGFR (test code = eGFR) 94 [place] 747591-05-28 09:30:00 Test Item Value Reference Range Interpretation Comments RBC Morph (test code = Normal (09/22/20 4:30 RBC Morph) AM) [place]7591-05-28 09:30:00 Test Item Value Reference Range Interpretation Comments Plt Morph (test code = Normal (09/22/20 4:30 Plt Morph) AM) [place] [address]-05-28 09:30:00 Test Item Value Reference Range Interpretation Comments Segs (test code = Segs) 51.3 45.0-75.0 [place] [address]-05-28 09:30:00 Test Item Value Reference Range Interpretation Comments Lymphocytes (test code = Lymphocytes) 29.2 20.0-40.0 [place]7591-05-28 09:30:00 Test Item Value Reference Range Interpretation Comments Monocytes (test code = Monocytes) 9.9 2.0-12.0 [place]7591-05-28 09:30:00 Test Item Value Reference Range Interpretation Comments Eosinophils (test code = Eosinophils) 8.7 <=4.0 [place] [address]-05-28 09:30:00 Test Item Value Reference Range Interpretation Comments Basophils (test code = Basophils) 0.9 <=1.0 [place] [address]-05-28 09:30:00 Test Item Value Reference Range Interpretation Comments Neutrophils # (test code = Neutrophils 3.5 1.5-8.1 #) [place]7591-05-28 09:30:00 Test Item Value Reference Range Interpretation Comments Lymphocytes # (test code = Lymphocytes 2.0 1.0-5.5 #) [facility] 09:30:00 Test Item Value Reference Range Interpretation Comments Monocytes # (test code = Monocytes #) 0.7 <=0.8 [place]7591-05-28 09:30:00 Test Item Value Reference Range Interpretation Comments Eosinophils # (test code = Eosinophils 0.6 <=0.5 #) [place]7591-05-28 09:30:00 Test Item Value Reference Range Interpretation Comments Basophils # (test code = Basophils #) 0.1 <=0.2 [place]7591-05-28 09:30:00 Test Item Value Reference Range Interpretation Comments WBC (test code = WBC) 6.9 3.7-10.4 [place]7591-05-28 09:30:00 Test Item Value Reference Range Interpretation Comments RBC (test code = RBC) 2.99 4.20-5.40 [facility]QtseoqsXECNEMKWHG7999-42-08 09:30:00 Test Item Value Reference Range Interpretation Comments Hgb (test code = Hgb) 9.3 12.0-16.0 [facility] CypressGmvypjpZXJORGDDBS2730-69-72 09:30:00 Test Item Value Reference Range Interpretation Comments Hct (test code = Hct) 27.7 36.0-48.0 [facility] CypressFeofpwnLUYMLNQWIX3383-78-79 09:30:00 Test Item Value Reference Range Interpretation Comments MCV (test code = MCV) 92.6 80.0-98.0 [place]7591-05-28 09:30:00 Test Item Value Reference Range Interpretation Comments MCH (test code = MCH) 31.2 pg 27.0-31.0 [place]7591-05-28 09:30:00 Test Item Value Reference Range Interpretation Comments MCHC (test code = MCHC) 33.7 32.0-36.0 [facility]ressXoegpuxESFYOKDJFG5273-61-68 09:30:00 Test Item Value Reference Range Interpretation Comments RDW (test code = RDW) 14.4 11.5-14.5 [place]7591-05-28 09:30:00 Test Item Value Reference Range Interpretation Comments Platelet (test code = Platelet) 301 133-450 [facility] 09:30:00 Test Item Value Reference Range Interpretation Comments MPV (test code = MPV) 7.9 7.4-10.4 [place] 663521-05-27 08:23:00 Test Item Value Reference Range Interpretation Comments Glucose Lvl (test code = Glucose Lvl) 91 70-99 [place] 663521-05-27 08:23:00 Test Item Value Reference Range Interpretation Comments BUN (test code = BUN) 25 7-22 [place] [address]-05-27 08:23:00 Test Item Value Reference Range Interpretation Comments Creatinine Lvl (test code = Creatinine 0.82 0.50-1.40 Lvl) [place] 663521-05-27 08:23:00 Test Item Value Reference Range Interpretation Comments Sodium Lvl (test code = Sodium Lvl) 144 135-145 [place] 663521-05-27 08:23:00 Test Item Value Reference Range Interpretation Comments Potassium Lvl (test code = Potassium 3.6 3.5-5.1 Lvl) [place] 663521-05-27 08:23:00 Test Item Value Reference Range Interpretation Comments Chloride Lvl (test code = Chloride Lvl) 111 95-109 [place] 663521-05-27 08:23:00 Test Item Value Reference Range Interpretation Comments CO2 (test code = CO2) 28 24-32 [place] 663521-05-27 08:23:00 Test Item Value Reference Range Interpretation Comments Calcium Lvl (test code = Calcium Lvl) 8.8 8.5-10.5 [place] 663521-05-27 08:23:00 Test Item Value Reference Range Interpretation Comments Total Protein (test code = Total 5.9 6.4-8.4 Protein) [place]3521-05-27 08:23:00 Test Item Value Reference Range Interpretation Comments Albumin Lvl (test code = Albumin Lvl) 2.2 3.5-5.0 [place] 663521-05-27 08:23:00 Test Item Value Reference Range Interpretation Comments ALT (test code = ALT) 29 <=65 [place] 663521-05-27 08:23:00 Test Item Value Reference Range Interpretation Comments AST (test code = AST) 24 <=37 [place] 663521-05-27 08:23:00 Test Item Value Reference Range Interpretation Comments Alk Phos (test code = Alk Phos) 56 39-136 [place] 663521-05-27 08:23:00 Test Item Value Reference Range Interpretation Comments Bili Total (test code = Bili Total) 0.2 0.2-1.3 [place] [address]-05-27 08:23:00 Test Item Value Reference Range Interpretation Comments AGAP (test code = AGAP) 8.6 10.0-20.0 [place] [address]-05-27 08:23:00 Test Item Value Reference Range Interpretation Comments B/C Ratio (test code = B/C Ratio) 30 1 6-[address]05-27 08:23:00 Test Item Value Reference Range Interpretation Comments Globulin (test code = Globulin) 3.7 2.7-4.2 [place] [address]-05-27 08:23:00 Test Item Value Reference Range Interpretation Comments A/G Ratio (test code = A/G Ratio) 0.6 1 0.7-1.[address]05-27 08:23:00 Test Item Value Reference Range Interpretation Comments eGFR (test code = eGFR) 80 [place]7591-05-27 08:23:00 Test Item Value Reference Range Interpretation Comments Segs (test code = Segs) 65.3 45.0-75.0 [place]7591-05-27 08:23:00 Test Item Value Reference Range Interpretation Comments Lymphocytes (test code = Lymphocytes) 17.0 20.0-40.0 [place] [address]-05-27 08:23:00 Test Item Value Reference Range Interpretation Comments Monocytes (test code = Monocytes) 8.2 2.0-12.0 [place]7591-05-27 08:23:00 Test Item Value Reference Range Interpretation Comments Eosinophils (test code = Eosinophils) 9.1 <=4.0 [place]7591-05-27 08:23:00 Test Item Value Reference Range Interpretation Comments Basophils (test code = Basophils) 0.4 <=1.0 [place] [address]-05-27 08:23:00 Test Item Value Reference Range Interpretation Comments Neutrophils # (test code = Neutrophils 5.6 1.5-8.1 #) [address]05-27 08:23:00 Test Item Value Reference Range Interpretation Comments Lymphocytes # (test code = Lymphocytes 1.4 1.0-5.5 #) [address]05-27 08:23:00 Test Item Value Reference Range Interpretation Comments Monocytes # (test code = Monocytes #) 0.7 <=0.8 [address]05-27 08:23:00 Test Item Value Reference Range Interpretation Comments Eosinophils # (test code = Eosinophils 0.8 <=0.5 #) [address]05-27 08:23:00 Test Item Value Reference Range Interpretation Comments WBC (test code = WBC) 8.5 3.7-10.4 [place] [address]-05-27 08:23:00 Test Item Value Reference Range Interpretation Comments RBC (test code = RBC) 2.89 4.20-5.40 [place] [address]-05-27 08:23:00 Test Item Value Reference Range Interpretation Comments Hgb (test code = Hgb) 9.3 12.0-16.0 [place] [address]-05-27 08:23:00 Test Item Value Reference Range Interpretation Comments Hct (test code = Hct) 26.6 36.0-48.0 [place] [address]-05-27 08:23:00 Test Item Value Reference Range Interpretation Comments MCV (test code = MCV) 92.3 80.0-98.0 [place] [address]-05-27 08:23:00 Test Item Value Reference Range Interpretation Comments MCH (test code = MCH) 32.2 pg 27.0-31.0 [place] [address]-05-27 08:23:00 Test Item Value Reference Range Interpretation Comments MCHC (test code = MCHC) 34.9 32.0-36.0 [place] [address]-05-27 08:23:00 Test Item Value Reference Range Interpretation Comments RDW (test code = RDW) 14.6 11.5-14.5 [place] [address]-05-27 08:23:00 Test Item Value Reference Range Interpretation Comments Platelet (test code = Platelet) 270 133-450 [facility] CypressDjknapiKGHPPBCQDZ6903-25-71 08:23:00 Test Item Value Reference Range Interpretation Comments MPV (test code = MPV) 7.7 7.4-10.4 [place] 663521-05-26 05:55:00 Test Item Value Reference Range Interpretation Comments Procalcitonin Lvl (test code = 0.73 <=0.10 Procalcitonin Lvl) [place] 663521-05-26 05:55:00 Test Item Value Reference Range Interpretation Comments Total Protein (test code = Total 6.4 6.4-8.4 Protein) [place] 663521-05-26 05:55:00 Test Item Value Reference Range Interpretation Comments Albumin Lvl (test code = Albumin Lvl) 2.4 3.5-5.0 [place] 663521-05-26 05:55:00 Test Item Value Reference Range Interpretation Comments ALT (test code = ALT) 26 <=65 [place] 663521-05-26 05:55:00 Test Item Value Reference Range Interpretation Comments AST (test code = AST) 24 <=37 [place] 663521-05-26 05:55:00 Test Item Value Reference Range Interpretation Comments Alk Phos (test code = Alk Phos) 64 39-136 [place] 663521-05-26 05:55:00 Test Item Value Reference Range Interpretation Comments Bili Total (test code = Bili Total) 0.2 0.2-1.3 [place] 663521-05-26 05:55:00 Test Item Value Reference Range Interpretation Comments B/C Ratio (test code = B/C Ratio) 26 1 6-25 [place] 663521-05-26 05:55:00 Test Item Value Reference Range Interpretation Comments Globulin (test code = Globulin) 4.0 2.7-4.2 [place] 663521-05-26 05:55:00 Test Item Value Reference Range Interpretation Comments A/G Ratio (test code = A/G Ratio) 0.6 1 0.7-1.6 [place]7591-05-26 05:55:00 Test Item Value Reference Range Interpretation Comments WBC (test code = WBC) 13.1 3.7-10.4 [facility]ressHjmzvzbVNYYTBSQMU2480-00-96 05:55:00 Test Item Value Reference Range Interpretation Comments RBC (test code = RBC) 3.73 4.20-5.40 [facility] CypressItfrdtbENARRRNEZF2447-18-30 05:55:00 Test Item Value Reference Range Interpretation Comments Hgb (test code = Hgb) 11.5 12.0-16.0 [place]7591-05-26 05:55:00 Test Item Value Reference Range Interpretation Comments Hct (test code = Hct) 34.5 36.0-48.0 [place]7591-05-26 05:55:00 Test Item Value Reference Range Interpretation Comments MCV (test code = MCV) 92.5 80.0-98.0 [facility] CypressYpwegtvYIZEYYKAMY6224-22-00 05:55:00 Test Item Value Reference Range Interpretation Comments MCH (test code = MCH) 30.8 pg 27.0-31.0 [facility] CypressMatjdxjLELSWHQQDX3721-46-19 05:55:00 Test Item Value Reference Range Interpretation Comments MCHC (test code = MCHC) 33.3 32.0-36.0 [facility] CypressXxgxnpxZVKSKVDKDH2459-22-92 05:55:00 Test Item Value Reference Range Interpretation Comments RDW (test code = RDW) 14.5 11.5-14.5 [facility] CypressRszhpqrIVSBVVSQQG1227-46-05 05:55:00 Test Item Value Reference Range Interpretation Comments Platelet (test code = Platelet) 309 133-450 [facility] CypressMlrsjvsSYAQMJYROP4667-10-05 05:55:00 Test Item Value Reference Range Interpretation Comments MPV (test code = MPV) 8.2 7.4-10.4 [place]7591-05-26 05:55:00 Test Item Value Reference Range Interpretation Comments Segs (test code = Segs) 88.3 45.0-75.0 [place]7591-05-26 05:55:00 Test Item Value Reference Range Interpretation Comments Lymphocytes (test code = Lymphocytes) 3.4 20.0-40.0 [place]7591-05-26 05:55:00 Test Item Value Reference Range Interpretation Comments Monocytes (test code = Monocytes) 3.5 2.0-12.0 [place] [address]-05-26 05:55:00 Test Item Value Reference Range Interpretation Comments Eosinophils (test code = Eosinophils) 4.1 <=4.0 [place] [address]-05-26 05:55:00 Test Item Value Reference Range Interpretation Comments Basophils (test code = Basophils) 0.7 <=1.0 [place] [address]-05-26 05:55:00 Test Item Value Reference Range Interpretation Comments Neutrophils # (test code = Neutrophils 11.6 1.5-8.1 #) [place] [address]-05-26 05:55:00 Test Item Value Reference Range Interpretation Comments Lymphocytes # (test code = Lymphocytes 0.4 1.0-5.5 #) [place] [address]-05-26 05:55:00 Test Item Value Reference Range Interpretation Comments Monocytes # (test code = Monocytes #) 0.5 <=0.8 [place] [address]-05-26 05:55:00 Test Item Value Reference Range Interpretation Comments Eosinophils # (test code = Eosinophils 0.5 <=0.5 #) [place] [address]-05-26 05:55:00 Test Item Value Reference Range Interpretation Comments Basophils # (test code = Basophils #) 0.1 <=0.2 [place] [address]-05-25 15:51:00 Test Item Value Reference Range Interpretation Comments Basophils # (test code = Basophils #) 0.1 <=0.2 [place] 663521-05-24 05:39:00 Test Item Value Reference Range Interpretation Comments Glucose Lvl (test code = Glucose Lvl) 100 70-99 [place] 663521-05-24 05:39:00 Test Item Value Reference Range Interpretation Comments BUN (test code = BUN) 21 7-22 [place] 663521-05-24 05:39:00 Test Item Value Reference Range Interpretation Comments Creatinine Lvl (test code = Creatinine 0.89 0.50-1.40 Lvl) [place] 663521-05-24 05:39:00 Test Item Value Reference Range Interpretation Comments Sodium Lvl (test code = Sodium Lvl) 144 135-145 [place] 663521-05-24 05:39:00 Test Item Value Reference Range Interpretation Comments Potassium Lvl (test code = Potassium 4.1 3.5-5.1 Lvl) [place] 663521-05-24 05:39:00 Test Item Value Reference Range Interpretation Comments Chloride Lvl (test code = Chloride Lvl) 110 95-109 [place] 663521-05-24 05:39:00 Test Item Value Reference Range Interpretation Comments CO2 (test code = CO2) 30 24-32 [place] 663521-05-24 05:39:00 Test Item Value Reference Range Interpretation Comments Calcium Lvl (test code = Calcium Lvl) 8.9 8.5-10.5 [place] 663521-05-24 05:39:00 Test Item Value Reference Range Interpretation Comments AGAP (test code = AGAP) 8.1 10.0-20.0 [place] 663521-05-24 05:39:00 Test Item Value Reference Range Interpretation Comments eGFR (test code = eGFR) 73 [place]7591-05-24 05:39:00 Test Item Value Reference Range Interpretation Comments WBC (test code = WBC) 7.9 3.7-10.4 [place]7591-05-24 05:39:00 Test Item Value Reference Range Interpretation Comments RBC (test code = RBC) 3.06 4.20-5.40 [facility] CypressUkgmonbPAHHUTQSSM2028-30-11 05:39:00 Test Item Value Reference Range Interpretation Comments Hgb (test code = Hgb) 9.8 12.0-16.0 [place]7591-05-24 05:39:00 Test Item Value Reference Range Interpretation Comments Hct (test code = Hct) 28.6 36.0-48.0 [place]7591-05-24 05:39:00 Test Item Value Reference Range Interpretation Comments MCV (test code = MCV) 93.3 80.0-98.0 [place]7591-05-24 05:39:00 Test Item Value Reference Range Interpretation Comments MCH (test code = MCH) 32.0 pg 27.0-31.0 [place]7591-05-24 05:39:00 Test Item Value Reference Range Interpretation Comments MCHC (test code = MCHC) 34.3 32.0-36.0 [place]7591-05-24 05:39:00 Test Item Value Reference Range Interpretation Comments RDW (test code = RDW) 14.1 11.5-14.5 [place]7591-05-24 05:39:00 Test Item Value Reference Range Interpretation Comments Platelet (test code = Platelet) 274 916-450 [place]7591-05-24 05:39:00 Test Item Value Reference Range Interpretation Comments MPV (test code = MPV) 8.1 7.4-10.4 [facility] CypressKbiifehAHJEQQWINW4221-90-74 05:39:00 Test Item Value Reference Range Interpretation Comments Segs (test code = Segs) 67.3 45.0-75.0 [place]7591-05-24 05:39:00 Test Item Value Reference Range Interpretation Comments Lymphocytes (test code = Lymphocytes) 14.3 20.0-40.0 [facility] CypressWfmocqrQMJTWXNCZV7961-30-15 05:39:00 Test Item Value Reference Range Interpretation Comments Monocytes (test code = Monocytes) 10.9 2.0-12.0 [facility] CypressLkfpeywLGQTDGOOSY2163-31-13 05:39:00 Test Item Value Reference Range Interpretation Comments Eosinophils (test code = Eosinophils) 6.7 <=4.0 [place]75[place]-05-24 05:39:00 Test Item Value Reference Range Interpretation Comments Basophils (test code = Basophils) 0.8 <=1.0 [place]7591-05-24 05:39:00 Test Item Value Reference Range Interpretation Comments Neutrophils # (test code = Neutrophils 5.3 1.5-8.1 #) [facility] CypressIfzlvzhKQEAQZJAUD2097-41-39 05:39:00 Test Item Value Reference Range Interpretation Comments Lymphocytes # (test code = Lymphocytes 1.1 1.0-5.5 #) [facility] CypressHfmdxveZLBPEFHALQ6753-79-75 05:39:00 Test Item Value Reference Range Interpretation Comments Monocytes # (test code = Monocytes #) 0.9 <=0.8 [place]91-05-24 05:39:00 Test Item Value Reference Range Interpretation Comments Eosinophils # (test code = Eosinophils 0.5 <=0.5 #) [facility] CypressIecikuzCPQDTZGAWE5166-24-34 05:39:00 Test Item Value Reference Range Interpretation Comments Basophils # (test code = Basophils #) 0.1 <=0.2 [facility]2021-05-24 02:08:00 Test Item Value Reference Range Interpretation Comments Reason for Order (test Enteric fever (09/17/20 code = Reason for 9:08 PM) Order) [facility]2021-05-24 02:08:00 Test Item Value Reference Range Interpretation Comments Campylobacter grp (test Not Detected code = Campylobacter grp) (09/17/20 9:08 PM) [facility]2021-05-24 02:08:00 Test Item Value Reference Range Interpretation Comments Salmonella spp. (test Not Detected (09/17/20 code = Salmonella spp.) 9:08 PM) [facility]2021-05-24 02:08:00 Test Item Value Reference Range Interpretation Comments Shigella spp. (test Not Detected (09/17/20 code = Shigella spp.) 9:08 PM) [facility]2021-05-24 02:08:00 Test Item Value Reference Range Interpretation Comments Vibrio grp (test code Not Detected (09/17/20 = Vibrio grp) 9:08 PM) [facility]2021-05-24 02:08:00 Test Item Value Reference Range Interpretation Comments Yersinia enterocolitica Not Detected (test code = Yersinia (09/17/20 9:08 PM) enterocolitica) [facility]2021-05-24 02:08:00 Test Item Value Reference Range Interpretation Comments Shiga Toxin I (test Not Detected (09/17/20 code = Shiga Toxin I) 9:08 PM) [facility]2021-05-24 02:08:00 Test Item Value Reference Range Interpretation Comments Shiga Toxin II (test Not Detected (09/17/20 code = Shiga Toxin 9:08 PM) II) [facility]2021-05-24 02:08:00 Test Item Value Reference Range Interpretation Comments Norovirus (GI/GII) Not Detected (09/17/20 (test code = Norovirus 9:08 PM) (GI/GII)) [facility]2021-05-24 02:08:00 Test Item Value Reference Range Interpretation Comments Rotavirus (grp A) (test Not Detected (09/17/20 code = Rotavirus (grp 9:08 PM) A)) [facility]:00 Test Item Value Reference Range Interpretation Comments C difficile DNA (test Negative (09/17/20 9:08 code = C difficile DNA) PM) [facility] [id number] 14:13:00 Test Item Value Reference Range Interpretation Comments Tube Num CSF (test code = Tube Num CSF) 3 1 [facility] [id number] 14:13:00 Test Item Value Reference Range Interpretation Comments Color CSF (test code Colorless (09/17/20 9:13 = Color CSF) AM) [facility] [id number] 14:13:00 Test Item Value Reference Range Interpretation Comments Clarity CSF (test code = Clear (09/17/20 9:13 Clarity CSF) AM) [facility]2021-05-23 14:13:00 Test Item Value Reference Range Interpretation Comments Supernat CSF (test Colorless (09/17/20 9:13 code = Supernat CSF) AM) [facility]2021-05-23 14:13:00 Test Item Value Reference Range Interpretation Comments Nucleated Cells CSF (test code = 4 <=53 Nucleated Cells CSF) [facility]2021-05-23 14:13:00 Test Item Value Reference Range Interpretation Comments RBC CSF (test code = RBC CSF) 33 <=03 [facility] [id number] 14:13:00 Test Item Value Reference Range Interpretation Comments Comment CSF (test Differential not code = Comment CSF) performed on WBC count of less than 5. [facility] [id number] 14:13:00 Test Item Value Reference Range Interpretation Comments Tube Num CSF (test code = Tube Num CSF) 1 1 [facility] [id number] 14:13:00 Test Item Value Reference Range Interpretation Comments Color CSF (test code Colorless (09/17/20 9:13 = Color CSF) AM) [facility]2021-05-23 14:13:00 Test Item Value Reference Range Interpretation Comments Clarity CSF (test code Slight *ABN*(09/17/20 = Clarity CSF) 9:13 AM) [facility]2021-05-23 14:13:00 Test Item Value Reference Range Interpretation Comments Supernat CSF (test Colorless (09/17/20 9:13 code = Supernat CSF) AM) [facility] [id number] 14:13:00 Test Item Value Reference Range Interpretation Comments Nucleated Cells CSF (test code = 2 <=53 Nucleated Cells CSF) [facility] [id number] 14:13:00 Test Item Value Reference Range Interpretation Comments RBC CSF (test code = RBC CSF) 690 <=03 [facility] [id number] 14:13:00 Test Item Value Reference Range Interpretation Comments Comment CSF (test Differential not code = Comment CSF) performed on WBC count of less than 5. [facility] [id number] 14:13:00 Test Item Value Reference Range Interpretation Comments Protein CSF (test code = Protein CSF) 64 15-45 [facility] [id number] 14:13:00 Test Item Value Reference Range Interpretation Comments Glucose CSF (test code = Glucose CSF) 57 45-80 [facility] [id number] 14:13:00 Test Item Value Reference Range Interpretation Comments Gram Stain Report Gram Stain Performed By: (test code = Gram [facility] Stain Report) [facility]/Gram [id number] 14:13:00 Test Item Value Reference Range Interpretation Comments Culture: CSF w/Gram Stain (test No Growth code = Culture: CSF w/Gram Stain) [facility]ressKehdryrGGNPIQGVUS6015-75-13 12:07:00 Test Item Value Reference Range Interpretation Comments Vanco Tr (test code = Vanco Tr) 14.6 [facility] HospitalVaihepsZQAEGIMAPT8513-44-01 12:07:00 Test Item Value Reference Range Interpretation Comments Vanco Tr TND (test code = Vanco Tr 0800 1 TND) [facility] [id number] 06:35:00 Test Item Value Reference Range Interpretation Comments Glucose Lvl (test code = Glucose Lvl) 113 70-99 [facility] [id number] 06:35:00 Test Item Value Reference Range Interpretation Comments BUN (test code = BUN) 21 7-22 [facility] [id number] 06:35:00 Test Item Value Reference Range Interpretation Comments Creatinine Lvl (test code = Creatinine 1.07 0.50-1.40 Lvl) [place] [address]-05-23 06:35:00 Test Item Value Reference Range Interpretation Comments Sodium Lvl (test code = Sodium Lvl) 142 135-145 [place] 663521-05-23 06:35:00 Test Item Value Reference Range Interpretation Comments Potassium Lvl (test code = Potassium 4.1 3.5-5.1 Lvl) [place] [address]-05-23 06:35:00 Test Item Value Reference Range Interpretation Comments Chloride Lvl (test code = Chloride Lvl) 107 95-109 [place] [address]-05-23 06:35:00 Test Item Value Reference Range Interpretation Comments CO2 (test code = CO2) 28 24-32 [place] [address]-05-23 06:35:00 Test Item Value Reference Range Interpretation Comments Calcium Lvl (test code = Calcium Lvl) 9.3 8.5-10.5 [place] 663521-05-23 06:35:00 Test Item Value Reference Range Interpretation Comments AGAP (test code = AGAP) 11.1 10.0-20.0 [place] [address]-05-23 06:35:00 Test Item Value Reference Range Interpretation Comments eGFR (test code = eGFR) 59 [place] [address]-05-23 06:35:00 Test Item Value Reference Range Interpretation Comments WBC (test code = WBC) 10.1 3.7-10.4 [place] [address]-05-23 06:35:00 Test Item Value Reference Range Interpretation Comments RBC (test code = RBC) 3.07 4.20-5.40 [place] [address]-05-23 06:35:00 Test Item Value Reference Range Interpretation Comments Hgb (test code = Hgb) 9.8 12.0-16.0 [place] [address]-05-23 06:35:00 Test Item Value Reference Range Interpretation Comments Hct (test code = Hct) 28.5 36.0-48.0 [place] [address]-05-23 06:35:00 Test Item Value Reference Range Interpretation Comments MCV (test code = MCV) 93.0 80.0-98.0 [place] [address]-05-23 06:35:00 Test Item Value Reference Range Interpretation Comments MCH (test code = MCH) 31.9 pg 27.0-31.0 [facility] CypressTwijlfxKTYBYGNEGN1717-21-41 06:35:00 Test Item Value Reference Range Interpretation Comments MCHC (test code = MCHC) 34.3 32.0-36.0 [facility] CypressKqesyckQSZTCQXELF0972-54-81 06:35:00 Test Item Value Reference Range Interpretation Comments RDW (test code = RDW) 14.2 11.5-14.5 [facility] CypressYlyiflbQATGZBORWC0066-03-72 06:35:00 Test Item Value Reference Range Interpretation Comments Platelet (test code = Platelet) 271 133-450 [facility] CypressJppehskDMRBLDUQSL8503-52-49 06:35:00 Test Item Value Reference Range Interpretation Comments MPV (test code = MPV) 7.8 7.4-10.4 [facility] CypressTzwipdsEICTJDIYET3163-33-33 06:35:00 Test Item Value Reference Range Interpretation Comments Segs (test code = Segs) 76.2 45.0-75.0 [facility] CypressBpnldsfCFEZUTPEQF5883-04-14 06:35:00 Test Item Value Reference Range Interpretation Comments Lymphocytes (test code = Lymphocytes) 8.9 20.0-40.0 [facility] CypressDmqocmwUAYCKAECKB0604-59-21 06:35:00 Test Item Value Reference Range Interpretation Comments Monocytes (test code = Monocytes) 8.4 2.0-12.0 [facility] CypressHcyauspDSJZMGZGVX3108-94-41 06:35:00 Test Item Value Reference Range Interpretation Comments Eosinophils (test code = Eosinophils) 5.5 <=4.0 [facility] CypressBmysdeaFCSEDAKJLA2636-25-94 06:35:00 Test Item Value Reference Range Interpretation Comments Basophils (test code = Basophils) 1.0 <=1.0 [facility] CypressAeegoyyBHZGENTVFD8089-88-89 06:35:00 Test Item Value Reference Range Interpretation Comments Neutrophils # (test code = Neutrophils 7.7 1.5-8.1 #) [facility] CypressDtgmxytRNEKLRFFUN8215-30-19 06:35:00 Test Item Value Reference Range Interpretation Comments Lymphocytes # (test code = Lymphocytes 0.9 1.0-5.5 #) [facility] CypressMkhqtwpFHBFNUWSNH7198-91-07 06:35:00 Test Item Value Reference Range Interpretation Comments Monocytes # (test code = Monocytes #) 0.9 <=0.8 [facility] HospitalClemorsQYHXYCLFON4147-96-52 06:35:00 Test Item Value Reference Range Interpretation Comments Eosinophils # (test code = Eosinophils 0.6 <=0.5 #) [facility] HospitalRyepxweTSDJJFWSPL7245-59-04 06:35:00 Test Item Value Reference Range Interpretation Comments Basophils # (test code = Basophils #) 0.1 <=0.2 [facility] CypressCulture: [id number] 19:52:00 Test Item Value Reference Range Interpretation Comments Culture: Urine (test >100,000 CFU/mL Yeast code = Culture: Urine) [facility]2021-05-22 10:20:00 Test Item Value Reference Range Interpretation Comments Procalcitonin Lvl (test code = 1.59 <=0.10 Procalcitonin Lvl) [place] [address]-05-22 08:43:00 Test Item Value Reference Range Interpretation Comments Magnesium Lvl (test code = Magnesium 1.9 1.8-2.4 Lvl) [place] 663521-05-22 08:43:00 Test Item Value Reference Range Interpretation Comments Phosphorus (test code = Phosphorus) 3.6 2.5-4.5 [facility]2021-05-22 08:43:00 Test Item Value Reference Range Interpretation Comments Glucose Lvl (test code = Glucose Lvl) 140 70-99 [place] 663521-05-22 08:43:00 Test Item Value Reference Range Interpretation Comments BUN (test code = BUN) 23 7-22 [place] 663521-05-22 08:43:00 Test Item Value Reference Range Interpretation Comments Creatinine Lvl (test code = Creatinine 1.23 0.50-1.40 Lvl) [facility]2021-05-22 08:43:00 Test Item Value Reference Range Interpretation Comments Sodium Lvl (test code = Sodium Lvl) 139 135-145 [place] 663521-05-22 08:43:00 Test Item Value Reference Range Interpretation Comments Potassium Lvl (test code = Potassium 4.2 3.5-5.1 Lvl) [facility]2021-05-22 08:43:00 Test Item Value Reference Range Interpretation Comments Chloride Lvl (test code = Chloride Lvl) 105 95-109 [place] 663521-05-22 08:43:00 Test Item Value Reference Range Interpretation Comments CO2 (test code = CO2) 27 24-32 [place] 663521-05-22 08:43:00 Test Item Value Reference Range Interpretation Comments AGAP (test code = AGAP) 11.2 10.0-20.0 [place] 663521-05-22 08:43:00 Test Item Value Reference Range Interpretation Comments Calcium Lvl (test code = Calcium Lvl) 9.2 8.5-10.5 [place] 663521-05-22 08:43:00 Test Item Value Reference Range Interpretation Comments eGFR (test code = eGFR) 50 [place] 747591-05-22 08:43:00 Test Item Value Reference Range Interpretation Comments Segs (test code = Segs) 92.7 45.0-75.0 [place]7591-05-22 08:43:00 Test Item Value Reference Range Interpretation Comments Lymphocytes (test code = Lymphocytes) 2.2 20.0-40.0 [place]7591-05-22 08:43:00 Test Item Value Reference Range Interpretation Comments Monocytes (test code = Monocytes) 4.3 2.0-12.0 [place] [address]-05-22 08:43:00 Test Item Value Reference Range Interpretation Comments Eosinophils (test code = Eosinophils) 0.6 <=4.0 [place] [address]-05-22 08:43:00 Test Item Value Reference Range Interpretation Comments Basophils (test code = Basophils) 0.2 <=1.0 [place] 747591-05-22 08:43:00 Test Item Value Reference Range Interpretation Comments Neutrophils # (test code = Neutrophils 17.1 1.5-8.1 #) [place] 747591-05-22 08:43:00 Test Item Value Reference Range Interpretation Comments Lymphocytes # (test code = Lymphocytes 0.4 1.0-5.5 #) [place] 747591-05-22 08:43:00 Test Item Value Reference Range Interpretation Comments Monocytes # (test code = Monocytes #) 0.8 <=0.8 [place] 747591-05-22 08:43:00 Test Item Value Reference Range Interpretation Comments Eosinophils # (test code = Eosinophils 0.1 <=0.5 #) [facility] HospitalKcvnkzkEDTNHDUTBG1879-09-02 08:43:00 Test Item Value Reference Range Interpretation Comments WBC (test code = WBC) 18.5 3.7-10.4 [facility] HospitalEhfkplkQVIDWPSTZP4129-08-39 08:43:00 Test Item Value Reference Range Interpretation Comments RBC (test code = RBC) 3.24 4.20-5.40 [facility] HospitalAwuvuipADUTIWZRMZ9933-91-82 08:43:00 Test Item Value Reference Range Interpretation Comments Hgb (test code = Hgb) 10.0 12.0-16.0 [facility] CypressCfolwkmMPUPYMKLGP2856-19-34 08:43:00 Test Item Value Reference Range Interpretation Comments Hct (test code = Hct) 29.9 36.0-48.0 [facility] CypressMpjkiycDXSGZMNXQU2451-12-17 08:43:00 Test Item Value Reference Range Interpretation Comments MCV (test code = MCV) 92.5 80.0-98.0 [facility] HospitalGgolbwgNQOAEWFXUL9857-46-17 08:43:00 Test Item Value Reference Range Interpretation Comments MCH (test code = MCH) 30.9 pg 27.0-31.0 [facility] CypressEmcdaauKLNBFRSDHB6398-47-31 08:43:00 Test Item Value Reference Range Interpretation Comments MCHC (test code = MCHC) 33.4 32.0-36.0 [facility] CypressBnbvqotYABUOHDLMG2779-96-78 08:43:00 Test Item Value Reference Range Interpretation Comments RDW (test code = RDW) 13.8 11.5-14.5 [facility] HospitalKljsyddPOLTLDRWXX0418-76-17 08:43:00 Test Item Value Reference Range Interpretation Comments Platelet (test code = Platelet) 299 133-450 [facility] CypressRzdlnyvLHTDXXQSBH3677-88-60 08:43:00 Test Item Value Reference Range Interpretation Comments MPV (test code = MPV) 7.6 7.4-10.4 [facility] CypressPmmobvzWSLUJZBXRU7897-80-63 03:21:00 Test Item Value Reference Range Interpretation Comments Sed Rate (test code = Sed Rate) 49 <=20 [facility] CypressPkkvlbbAPSPDLWIIQ2954-04-29 03:21:00 Test Item Value Reference Range Interpretation Comments C-REACTIVE PROTEIN (test code = 16.1 C-REACTIVE PROTEIN) [facility] [id number] 03:18:20 Test Item Value Reference Range Interpretation Comments Lactic Acid Lvl (test code = Lactic 1.5 0.5-2.2 Acid Lvl) [facility] CypressJrdiuuiHJWAFZIZBU0856-24-72 02:46:00 Test Item Value Reference Range Interpretation Comments Coronavirus (COVID-19) Not Detected (09/15/20 KASSY (test code = 9:46 PM) Coronavirus (COVID-19) KASSY) [facility] [id number] 23:20:00 Test Item Value Reference Range Interpretation Comments ABO/Rh (test code = ABO/Rh) A POS [facility] [id number] 23:20:00 Test Item Value Reference Range Interpretation Comments Antibody Scrn (test Negative (09/15/20 6:20 code = Antibody Scrn) PM) [facility] AND [id number] 22:51:00 Test Item Value Reference Range Interpretation Comments UA Color (test code = Yellow *NA*(09/15/20 UA Color) 5:51 PM) [facility] AND [id number] 22:51:00 Test Item Value Reference Range Interpretation Comments UA Turbidity (test code = Clear (09/15/20 5:51 UA Turbidity) PM) [facility] AND [id number] 22:51:00 Test Item Value Reference Range Interpretation Comments UA Spec Grav (test code = UA Spec 1.014 1 Grav) [facility] AND [id number] 22:51:00 Test Item Value Reference Range Interpretation Comments UA pH (test code = UA pH) 7.0 1 5.0-8.0 [facility] AND [id number] 22:51:00 Test Item Value Reference Range Interpretation Comments UA Protein (test code = UA Negative mg/dL Protein) [facility] AND [id number] 22:51:00 Test Item Value Reference Range Interpretation Comments UA Glucose (test code = UA Negative mg/dL Glucose) [facility] AND [id number] 22:51:00 Test Item Value Reference Range Interpretation Comments UA Ketones (test code = UA Trace mg/dL Ketones) [facility] AND [id number] 22:51:00 Test Item Value Reference Range Interpretation Comments UA Bili (test code = Negative *NA*(09/15/20 UA Bili) 5:51 PM) [facility] [id number] 22:51:00 Test Item Value Reference Range Interpretation Comments UA Blood (test code = Negative (09/15/20 5:51 UA Blood) PM) [facility] [id number] 22:51:00 Test Item Value Reference Range Interpretation Comments UA Urobilinogen (test code = UA no gt 0.1-1.0 Urobilinogen) [facility] [id number] 22:51:00 Test Item Value Reference Range Interpretation Comments UA Nitrite (test code Negative (09/15/20 5:51 = UA Nitrite) PM) [facility] [id number] 22:51:00 Test Item Value Reference Range Interpretation Comments UA Leuk Est (test Negative (09/15/20 5:51 code = UA Leuk Est) PM) [facility] [id number] 22:51:00 Test Item Value Reference Range Interpretation Comments UA Sq Epi (test code = UA Sq Occasional /LPF Epi) [facility] [id number] 22:51:00 Test Item Value Reference Range Interpretation Comments UA WBC (test code = UA WBC) 8 <=5 [facility] [id number] 22:51:00 Test Item Value Reference Range Interpretation Comments UA RBC (test code = UA RBC) 3 <=2 [facility] [id number] 22:51:00 Test Item Value Reference Range Interpretation Comments UA Bacteria (test code = UA Occasional /HPF Bacteria) [facility] [id number] 22:51:00 Test Item Value Reference Range Interpretation Comments UA Mucus (test code = UA Mucus) Few /LPF [facility] [id number] 21:33:00 Test Item Value Reference Range Interpretation Comments Total CK (test code = Total CK) 23 12-191 [facility] [id number] 21:33:00 Test Item Value Reference Range Interpretation Comments Troponin-I (test code = Troponin-I) no gt <=0.40 [facility] [id number] 21:33:00 Test Item Value Reference Range Interpretation Comments Procalcitonin Lvl (test code = 0.05 <=0.10 Procalcitonin Lvl) [place] 663521-05-21 21:33:00 Test Item Value Reference Range Interpretation Comments Total Protein (test code = Total 7.5 6.4-8.4 Protein) [place] [address]-05-21 21:33:00 Test Item Value Reference Range Interpretation Comments Albumin Lvl (test code = Albumin Lvl) 2.9 3.5-5.0 [place] 663521-05-21 21:33:00 Test Item Value Reference Range Interpretation Comments ALANINE AMINOTRANSFERASE (test code = 18 <=65 ALANINE AMINOTRANSFERASE) [place] [address]-05-21 21:33:00 Test Item Value Reference Range Interpretation Comments ASPARTATE TRANSAMINASE (test code = 17 <=37 ASPARTATE TRANSAMINASE) [place] [address]-05-21 21:33:00 Test Item Value Reference Range Interpretation Comments Alk Phos (test code = Alk Phos) 47 39-136 [place] 663521-05-21 21:33:00 Test Item Value Reference Range Interpretation Comments Bili Total (test code = Bili Total) 0.2 0.2-1.3 [place] [address]-05-21 21:33:00 Test Item Value Reference Range Interpretation Comments B/C Ratio (test code = B/C Ratio) 19 1 6-25 [place] [address]-05-21 21:33:00 Test Item Value Reference Range Interpretation Comments Globulin (test code = Globulin) 4.6 2.7-4.2 [place] 663521-05-21 21:33:00 Test Item Value Reference Range Interpretation Comments A/G Ratio (test code = A/G Ratio) 0.6 1 0.7-1.6 [place] [address]-05-21 21:33:00 Test Item Value Reference Range Interpretation Comments Lactic Acid Lvl (test code = Lactic 0.9 0.5-2.2 Acid Lvl) [place] 213111-05-21 21:33:00 Test Item Value Reference Range Interpretation Comments S Preg (test code = S Negative *NA*(09/15/20 Preg) 4:33 PM) [place] 747591-05-21 21:33:00 Test Item Value Reference Range Interpretation Comments PT (test code = PT) 13.0 s 12.0-14.7 [facility]hccrbvWPTPXFGYIE0961-12-65 21:33:00 Test Item Value Reference Range Interpretation Comments INR (test code = INR) 0.99 1 0.85-1.17 [id number] 21:33:00 Test Item Value Reference Range Interpretation Comments PTT (test code = PTT) 30.0 s 22.9-35.8 [facility] HospitalYkrreecUFHCMMVEGR5837-31-80 21:33:00 Test Item Value Reference Range Interpretation Comments Basophils # (test code = Basophils #) 0.1 <=0.2 [facility] HospitalByzvrzgJEISVTXTIF7103-57-69 21:33:00 Test Item Value Reference Range Interpretation Comments Vanco Lvl (test code = Vanco Lvl) 1.6 [facility] [employer] [id number] 11:23:00 Test Item Value Reference Range Interpretation Comments ABO/Rh (test code = ABO/Rh) A POS [facility] [employer] [id number] 11:23:00 Test Item Value Reference Range Interpretation Comments Antibody Scrn (test Negative (08/28/20 6:23 code = Antibody Scrn) AM) [facility] HospitalIpnrqbrLFYGKNTJLH6643-90-92 15:14:00 Test Item Value Reference Range Interpretation Comments Vanco Tr (test code = Vanco Tr) 18.0 [facility] HospitalUwngryhRWZWURTSMB0830-78-40 15:14:00 Test Item Value Reference Range Interpretation Comments Vanco Tr TND (test code = Vanco Tr 09:30am TND) [facility] [employer] [id number] 11:42:00 Test Item Value Reference Range Interpretation Comments Glucose Lvl (test code = Glucose Lvl) 95 70-99 [facility] [employer] [id number] 11:42:00 Test Item Value Reference Range Interpretation Comments BUN (test code = BUN) 8 7- [facility] [id number] 11:42:00 Test Item Value Reference Range Interpretation Comments Creatinine Lvl (test code = Creatinine 0.53 0.50-1.40 Lvl) [facility] [employer] [id number] 11:42:00 Test Item Value Reference Range Interpretation Comments Sodium Lvl (test code = Sodium Lvl) 146 135-145 [place] 663521-05-02 11:42:00 Test Item Value Reference Range Interpretation Comments Potassium Lvl (test code = Potassium 3.8 3.5-5.1 Lvl) [place] 663521-05-02 11:42:00 Test Item Value Reference Range Interpretation Comments Chloride Lvl (test code = Chloride Lvl) 112 95-109 [place] 663521-05-02 11:42:00 Test Item Value Reference Range Interpretation Comments CO2 (test code = CO2) 27 24-32 [place] 663521-05-02 11:42:00 Test Item Value Reference Range Interpretation Comments Calcium Lvl (test code = Calcium Lvl) 9.0 8.5-10.5 [place] 663521-05-02 11:42:00 Test Item Value Reference Range Interpretation Comments AGAP (test code = AGAP) 10.8 10.0-20.0 [place] 663521-05-02 11:42:00 Test Item Value Reference Range Interpretation Comments eGFR (test code = eGFR) 107 [place] 663521-05-02 11:42:00 Test Item Value Reference Range Interpretation Comments Magnesium Lvl (test code = Magnesium 2.2 1.8-2.4 Lvl) [place] 663521-05-02 11:42:00 Test Item Value Reference Range Interpretation Comments Phosphorus (test code = Phosphorus) 3.1 2.5-4.5 [place] 747591-05-02 11:42:00 Test Item Value Reference Range Interpretation Comments WBC (test code = WBC) 8.2 3.7-10.4 [place] [address]-05-02 11:42:00 Test Item Value Reference Range Interpretation Comments RBC (test code = RBC) 3.01 4.20-5.40 [place] 747591-05-02 11:42:00 Test Item Value Reference Range Interpretation Comments Hgb (test code = Hgb) 10.2 12.0-16.0 [place] [address]-05-02 11:42:00 Test Item Value Reference Range Interpretation Comments Hct (test code = Hct) 29.0 36.0-48.0 [address]05-02 11:42:00 Test Item Value Reference Range Interpretation Comments MCV (test code = MCV) 96.1 80.0-98.0 [place] 747591-05-02 11:42:00 Test Item Value Reference Range Interpretation Comments MCH (test code = MCH) 33.9 pg 27.0-31.0 [place] 747591-05-02 11:42:00 Test Item Value Reference Range Interpretation Comments MCHC (test code = MCHC) 35.3 32.0-36.0 [place] 747591-05-02 11:42:00 Test Item Value Reference Range Interpretation Comments RDW (test code = RDW) 13.6 11.5-14.5 [place] 747591-05-02 11:42:00 Test Item Value Reference Range Interpretation Comments Platelet (test code = Platelet) 300 133-450 [place] 747591-05-02 11:42:00 Test Item Value Reference Range Interpretation Comments MPV (test code = MPV) 7.3 7.4-10.4 [place] 747591-05-02 11:42:00 Test Item Value Reference Range Interpretation Comments Segs (test code = Segs) 58.7 45.0-75.0 [facility] CypressCoihromIFKFZXMEEI5988-80-03 11:42:00 Test Item Value Reference Range Interpretation Comments Lymphocytes (test code = Lymphocytes) 27.4 20.0-40.0 [place] 747591-05-02 11:42:00 Test Item Value Reference Range Interpretation Comments Monocytes (test code = Monocytes) 8.9 2.0-12.0 [place] 747591-05-02 11:42:00 Test Item Value Reference Range Interpretation Comments Eosinophils (test code = Eosinophils) 4.3 <=4.0 [place] 747591-05-02 11:42:00 Test Item Value Reference Range Interpretation Comments Basophils (test code = Basophils) 0.7 <=1.0 [place] 747591-05-02 11:42:00 Test Item Value Reference Range Interpretation Comments Neutrophils # (test code = Neutrophils 4.8 1.5-8.1 #) [facility] CypressHfwmdxeYGAERPFQQE6738-39-44 11:42:00 Test Item Value Reference Range Interpretation Comments Lymphocytes # (test code = Lymphocytes 2.3 1.0-5.5 #) [facility] CypressAhpbwkkUILSKPPTHU7682-71-05 11:42:00 Test Item Value Reference Range Interpretation Comments Monocytes # (test code = Monocytes #) 0.7 <=0.8 [place] [address]-05-02 11:42:00 Test Item Value Reference Range Interpretation Comments Eosinophils # (test code = Eosinophils 0.4 <=0.5 #) [place] 747591-05-02 11:42:00 Test Item Value Reference Range Interpretation Comments Basophils # (test code = Basophils #) 0.1 <=0.2 [facility]2021-05-02 11:42:00 Test Item Value Reference Range Interpretation Comments Ca Ion WB (test code = Ca Ion WB) 1.18 1.05-1.25 [place] 021941-05-02 11:42:00 Test Item Value Reference Range Interpretation Comments Ca Norm WB (test code = Ca Norm WB) 1.22 1.05-1.25 [facility] AND [id number] 19:27:00 Test Item Value Reference Range Interpretation Comments UA Color (test code = Yellow *NA*(08/26/20 2:27 UA Color) PM) [facility] AND [id number] 19:27:00 Test Item Value Reference Range Interpretation Comments UA Turbidity (test code Marked *ABN*(08/26/20 = UA Turbidity) 2:27 PM) [facility] AND [id number] 19:27:00 Test Item Value Reference Range Interpretation Comments UA Spec Grav (test code = UA Spec 1.013 1 Grav) [facility] AND [id number] 19:27:00 Test Item Value Reference Range Interpretation Comments UA pH (test code = UA pH) 8.0 1 5.0-8.0 [facility] AND [id number] 19:27:00 Test Item Value Reference Range Interpretation Comments UA Protein (test code = UA Protein) 100 mg/dL [facility] AND [id number] 19:27:00 Test Item Value Reference Range Interpretation Comments UA Glucose (test code = UA Negative mg/dL Glucose) [facility] AND [id number] 19:27:00 Test Item Value Reference Range Interpretation Comments UA Ketones (test code = UA Negative mg/dL Ketones) [facility] AND [id number] 19:27:00 Test Item Value Reference Range Interpretation Comments UA Bili (test code = Negative *NA*(08/26/20 UA Bili) 2:27 PM) [facility] AND [id number] 19:27:00 Test Item Value Reference Range Interpretation Comments UA Blood (test code = Negative (08/26/20 2:27 UA Blood) PM) [facility] AND [id number] 19:27:00 Test Item Value Reference Range Interpretation Comments UA Urobilinogen (test code = UA no gt 0.1-1.0 Urobilinogen) [facility] AND [id number] 19:27:00 Test Item Value Reference Range Interpretation Comments UA Nitrite (test code Negative (08/26/20 2:27 = UA Nitrite) PM) [facility] AND [id number] 19:27:00 Test Item Value Reference Range Interpretation Comments UA Leuk Est (test Negative (08/26/20 2:27 code = UA Leuk Est) PM) [facility] AND [id number] 19:27:00 Test Item Value Reference Range Interpretation Comments UA Sq Epi (test code = UA Sq Epi) Many /LPF [facility] AND [id number] 19:27:00 Test Item Value Reference Range Interpretation Comments UA WBC (test code = UA WBC) 2 <=5 [facility]ressTacqxhjKAHZAWUYHO7575-02-31 22:38:00 Test Item Value Reference Range Interpretation Comments Coronavirus (COVID-19) Not Detected (08/25/20 KASSY (test code = 5:38 PM) Coronavirus (COVID-19) KASSY) [facility] [id number] 22:27:00 Test Item Value Reference Range Interpretation Comments Lactic Acid Lvl (test code = Lactic 1.4 0.5-2.2 Acid Lvl) [facility] [id number] 22:10:00 Test Item Value Reference Range Interpretation Comments [facility] HIV 4th GEN (test Negative *NA*(08/25/20 code = CDC HIV 4th 5:10 PM) GEN) [facility] [id number] 22:10:00 Test Item Value Reference Range Interpretation Comments Hep C Ab (test code = Hep C Ab) NON-REACTIVE [facility] [id number] 22:10:00 Test Item Value Reference Range Interpretation Comments Hep Signal to Cut-Off (test code = Hep 0.14 1 Signal to Cut-Off) [facility]2021-04-30 22:07:00 Test Item Value Reference Range Interpretation Comments Glucose Lvl (test code = Glucose Lvl) 114 70-99 [facility]2021-04-30 22:07:00 Test Item Value Reference Range Interpretation Comments BUN (test code = BUN) 23 7-22 [facility]2021-04-30 22:07:00 Test Item Value Reference Range Interpretation Comments Creatinine Lvl (test code = Creatinine 0.62 0.50-1.40 Lvl) [facility]2021-04-30 22:07:00 Test Item Value Reference Range Interpretation Comments Sodium Lvl (test code = Sodium Lvl) 144 135-145 [facility]2021-04-30 22:07:00 Test Item Value Reference Range Interpretation Comments Potassium Lvl (test code = Potassium 3.4 3.5-5.1 Lvl) [facility]2021-04-30 22:07:00 Test Item Value Reference Range Interpretation Comments Chloride Lvl (test code = Chloride Lvl) 111 95-109 [facility]2021-04-30 22:07:00 Test Item Value Reference Range Interpretation Comments CO2 (test code = CO2) 28 24-32 [facility]2021-04-30 22:07:00 Test Item Value Reference Range Interpretation Comments Calcium Lvl (test code = Calcium Lvl) 8.9 8.5-10.5 [facility]2021-04-30 22:07:00 Test Item Value Reference Range Interpretation Comments AGAP (test code = AGAP) 8.4 10.0-20.0 [facility]2021-04-30 22:07:00 Test Item Value Reference Range Interpretation Comments eGFR (test code = eGFR) 102 [id number] 22:07:00 Test Item Value Reference Range Interpretation Comments WBC X 10x3 (test code = WBC X 10x3) 9.6 3.7-10.4 [facility] [id number] 22:07:00 Test Item Value Reference Range Interpretation Comments RBC X 10x6 (test code = RBC X 10x6) 3.41 4.20-5.40 [facility] [id number] 22:07:00 Test Item Value Reference Range Interpretation Comments Hgb (test code = Hgb) 11.0 12.0-16.0 [facility] CypressQxtrrxfAUEOTNHWWE1923-65-39 22:07:00 Test Item Value Reference Range Interpretation Comments Hct (test code = Hct) 32.6 36.0-48.0 [facility] CypressZuagkuvIEBYMHPDQW6675-94-66 22:07:00 Test Item Value Reference Range Interpretation Comments MCV (test code = MCV) 95.7 80.0-98.0 [facility] Cy[id number] 22:07:00 Test Item Value Reference Range Interpretation Comments MCH (test code = MCH) 32.1 pg 27.0-31.0 [facility] CypressYelxcolFNSOTQMVYX8533-94-20 22:07:00 Test Item Value Reference Range Interpretation Comments MCHC (test code = MCHC) 33.6 32.0-36.0 [facility] [id number] 22:07:00 Test Item Value Reference Range Interpretation Comments RDW (test code = RDW) 13.3 11.5-14.5 [facility] CypressOigazfhNBQZBRIODE0977-02-57 22:07:00 Test Item Value Reference Range Interpretation Comments Platelet (test code = Platelet) 312 133-450 [facility] C[id number] 22:07:00 Test Item Value Reference Range Interpretation Comments MPV (test code = MPV) 7.2 7.4-10.4 [facility] CypressYuuysvzNFQSMUPXGV1806-24-22 22:07:00 Test Item Value Reference Range Interpretation Comments Segs (test code = Segs) 59.2 45.0-75.0 [facility] C[id number] 22:07:00 Test Item Value Reference Range Interpretation Comments Lymphocytes (test code = Lymphocytes) 25.6 20.0-40.0 [facility] CypressDxnehrgGRXOKFPUDJ5602-34-41 22:07:00 Test Item Value Reference Range Interpretation Comments Monocytes (test code = Monocytes) 11.8 2.0-12.0 [facility] Cypre[id number] 22:07:00 Test Item Value Reference Range Interpretation Comments Eosinophils (test code = Eosinophils) 2.6 <=4.0 [place] 747591-04-30 22:07:00 Test Item Value Reference Range Interpretation Comments Basophils (test code = Basophils) 0.8 <=1.0 [place] 747591-04-30 22:07:00 Test Item Value Reference Range Interpretation Comments Neutrophils # (test code = Neutrophils 5.7 1.5-8.1 #) [facility] CypressUxlukdtVIMRQMVXJY2771-44-18 22:07:00 Test Item Value Reference Range Interpretation Comments Lymphocytes # (test code = Lymphocytes 2.5 1.0-5.5 #) [facility] CypressNrkppviGHSATIBMKZ9707-74-20 22:07:00 Test Item Value Reference Range Interpretation Comments Monocytes # (test code = Monocytes #) 1.1 <=0.8 [facility] CypressXnewfdiKOIFEKFLYM1322-76-00 22:07:00 Test Item Value Reference Range Interpretation Comments Eosinophils # (test code = Eosinophils 0.3 <=0.5 #) [facility] CypressCaicpysCIADYBGFLY0947-95-75 22:07:00 Test Item Value Reference Range Interpretation Comments Basophils # (test code = Basophils #) 0.1 <=0.2 [place] 46887021-04-28 15:56:00 Test Item Value Reference Range Interpretation Comments Vanco Tr (test code = Vanco Tr) 12.8 [place] 46887021-04-28 15:56:00 Test Item Value Reference Range Interpretation Comments Vanco Tr TND (test code = Vanco Tr 1000 1 TND) [place] 46887021-04-26 20:53:00 Test Item Value Reference Range Interpretation Comments Vanco Tr (test code = Vanco Tr) 14.1 [place] 251261-04-26 20:53:00 Test Item Value Reference Range Interpretation Comments Vanco Tr TND (test code = Vanco Tr 1600 1 TND) [facility]2021-04-26 10:58:00 Test Item Value Reference Range Interpretation Comments Glucose Lvl (test code = Glucose Lvl) 91 70-99 [facility]2021-04-26 10:58:00 Test Item Value Reference Range Interpretation Comments BUN (test code = BUN) 6 7-22 [place] 663521-04-26 10:58:00 Test Item Value Reference Range Interpretation Comments Creatinine Lvl (test code = Creatinine 0.39 0.50-1.40 Lvl) [place] 663521-04-26 10:58:00 Test Item Value Reference Range Interpretation Comments Sodium Lvl (test code = Sodium Lvl) 141 135-145 [place] 663521-04-26 10:58:00 Test Item Value Reference Range Interpretation Comments Potassium Lvl (test code = Potassium 3.3 3.5-5.1 Lvl) [place] 663521-04-26 10:58:00 Test Item Value Reference Range Interpretation Comments Chloride Lvl (test code = Chloride Lvl) 109 95-109 [place] 663521-04-26 10:58:00 Test Item Value Reference Range Interpretation Comments CO2 (test code = CO2) 25 24-32 [place] 663521-04-26 10:58:00 Test Item Value Reference Range Interpretation Comments Calcium Lvl (test code = Calcium Lvl) 8.7 8.5-10.5 [facility]2021-04-26 10:58:00 Test Item Value Reference Range Interpretation Comments AGAP (test code = AGAP) 10.3 10.0-20.0 [place] 663521-04-26 10:58:00 Test Item Value Reference Range Interpretation Comments eGFR (test code = eGFR) 118 [place] 747591-04-26 10:58:00 Test Item Value Reference Range Interpretation Comments WBC (test code = WBC) 7.5 3.7-10.4 [place] 747591-04-26 10:58:00 Test Item Value Reference Range Interpretation Comments RBC (test code = RBC) 2.99 4.20-5.40 [place] [address]-04-26 10:58:00 Test Item Value Reference Range Interpretation Comments Hgb (test code = Hgb) 10.0 12.0-16.0 [place] [address]-04-26 10:58:00 Test Item Value Reference Range Interpretation Comments Hct (test code = Hct) 28.2 36.0-48.0 [place] [address]-04-26 10:58:00 Test Item Value Reference Range Interpretation Comments MCV (test code = MCV) 94.1 80.0-98.0 [facility] CypressPhdbiaxUITHAUUNCO5332-16-41 10:58:00 Test Item Value Reference Range Interpretation Comments MCH (test code = MCH) 33.5 pg 27.0-31.0 [facility] CypressVeuyzroCBGXXUQSVY7222-14-65 10:58:00 Test Item Value Reference Range Interpretation Comments MCHC (test code = MCHC) 35.6 32.0-36.0 [facility] CypressXogmnuqPUPFENQIGY2073-55-03 10:58:00 Test Item Value Reference Range Interpretation Comments RDW (test code = RDW) 12.6 11.5-14.5 [facility] CypressQvvoffhHRLQETPSZR9803-68-54 10:58:00 Test Item Value Reference Range Interpretation Comments Platelet (test code = Platelet) 144 133-450 [facility] CypressQncakxzGHRFVGOPLE2087-52-51 10:58:00 Test Item Value Reference Range Interpretation Comments MPV (test code = MPV) 8.5 7.4-10.4 [facility] CypressNfmnzfkFPIYQIWGPS1753-67-25 10:58:00 Test Item Value Reference Range Interpretation Comments Segs (test code = Segs) 53.7 45.0-75.0 [facility] CypressOwddpggKXLIYPFHLO8935-26-52 10:58:00 Test Item Value Reference Range Interpretation Comments Lymphocytes (test code = Lymphocytes) 34.1 20.0-40.0 [facility] CypressIjtdsdjSOZPENVYVM5937-41-95 10:58:00 Test Item Value Reference Range Interpretation Comments Monocytes (test code = Monocytes) 11.1 2.0-12.0 [facility] CypressHfuguqpCFXEXWEAYC7090-32-93 10:58:00 Test Item Value Reference Range Interpretation Comments Eosinophils (test code = Eosinophils) 0.7 <=4.0 [facility] CypressTclswhcXSILIXYBKL8609-01-36 10:58:00 Test Item Value Reference Range Interpretation Comments Basophils (test code = Basophils) 0.4 <=1.0 [facility] CypressPkftoqhPULFIJTBFG8958-86-90 10:58:00 Test Item Value Reference Range Interpretation Comments Neutrophils # (test code = Neutrophils 4.0 1.5-8.1 #) [facility] CypressYrrmzybAJMAPFWOBM0737-23-90 10:58:00 Test Item Value Reference Range Interpretation Comments Lymphocytes # (test code = Lymphocytes 2.6 1.0-5.5 #) [facility] CypressUgvsizlGMQKWUAFTW8198-01-92 10:58:00 Test Item Value Reference Range Interpretation Comments Monocytes # (test code = Monocytes #) 0.8 <=0.8 [place] 747591-04-26 10:58:00 Test Item Value Reference Range Interpretation Comments Eosinophils # (test code = Eosinophils 0.1 <=0.5 #) [place] 663521-04-25 12:04:00 Test Item Value Reference Range Interpretation Comments Lactic Acid Lvl (test code = Lactic 1.3 0.5-2.2 Acid Lvl) [place] 663521-04-25 09:24:00 Test Item Value Reference Range Interpretation Comments Glucose Lvl (test code = Glucose Lvl) 112 70-99 [place] 663521-04-25 09:24:00 Test Item Value Reference Range Interpretation Comments BUN (test code = BUN) 15 7-22 [place] 663521-04-25 09:24:00 Test Item Value Reference Range Interpretation Comments Creatinine Lvl (test code = Creatinine 0.51 0.50-1.40 Lvl) [place] 663521-04-25 09:24:00 Test Item Value Reference Range Interpretation Comments Sodium Lvl (test code = Sodium Lvl) 141 135-145 [place] 663521-04-25 09:24:00 Test Item Value Reference Range Interpretation Comments Potassium Lvl (test code = Potassium 3.7 3.5-5.1 Lvl) [place] 663521-04-25 09:24:00 Test Item Value Reference Range Interpretation Comments Chloride Lvl (test code = Chloride Lvl) 108 95-109 [place] 663521-04-25 09:24:00 Test Item Value Reference Range Interpretation Comments CO2 (test code = CO2) 29 24-32 [place] 663521-04-25 09:24:00 Test Item Value Reference Range Interpretation Comments Calcium Lvl (test code = Calcium Lvl) 8.7 8.5-10.5 [place] 663521-04-25 09:24:00 Test Item Value Reference Range Interpretation Comments AGAP (test code = AGAP) 7.7 10.0-20.0 [place] 663521-04-25 09:24:00 Test Item Value Reference Range Interpretation Comments eGFR (test code = eGFR) 109 [place] 747591-04-25 09:24:00 Test Item Value Reference Range Interpretation Comments Segs (test code = Segs) 65.0 45.0-75.0 [place] [address]-04-25 09:24:00 Test Item Value Reference Range Interpretation Comments Lymphocytes (test code = Lymphocytes) 23.4 20.0-40.0 [place] [address]-04-25 09:24:00 Test Item Value Reference Range Interpretation Comments Monocytes (test code = Monocytes) 11.1 2.0-12.0 [place] [address]-04-25 09:24:00 Test Item Value Reference Range Interpretation Comments Eosinophils (test code = Eosinophils) 0.2 <=4.0 [place] [address]-04-25 09:24:00 Test Item Value Reference Range Interpretation Comments Basophils (test code = Basophils) 0.3 <=1.0 [place] [address]-04-25 09:24:00 Test Item Value Reference Range Interpretation Comments Neutrophils # (test code = Neutrophils 7.6 1.5-8.1 #) [place] 747591-04-25 09:24:00 Test Item Value Reference Range Interpretation Comments Lymphocytes # (test code = Lymphocytes 2.7 1.0-5.5 #) [place] [address]-04-25 09:24:00 Test Item Value Reference Range Interpretation Comments Monocytes # (test code = Monocytes #) 1.3 <=0.8 [place] [address]-04-25 09:24:00 Test Item Value Reference Range Interpretation Comments WBC (test code = WBC) 11.7 3.7-10.4 [place] [address]-04-25 09:24:00 Test Item Value Reference Range Interpretation Comments RBC (test code = RBC) 3.32 4.20-5.40 [place] 747591-04-25 09:24:00 Test Item Value Reference Range Interpretation Comments Hgb (test code = Hgb) 10.7 12.0-16.0 [place] [address]-04-25 09:24:00 Test Item Value Reference Range Interpretation Comments Hct (test code = Hct) 31.3 36.0-48.0 [facility]RvmwacfOUGQVTFXZI9329-16-41 09:24:00 Test Item Value Reference Range Interpretation Comments MCV (test code = MCV) 94.1 80.0-98.0 [facility] HospitalPuelxmzOVVFXWBKDT2137-55-32 09:24:00 Test Item Value Reference Range Interpretation Comments MCH (test code = MCH) 32.3 pg 27.0-31.0 [facility] HospitalDlcxexnZPJRYDXGIX3830-01-93 09:24:00 Test Item Value Reference Range Interpretation Comments MCHC (test code = MCHC) 34.3 32.0-36.0 [facility] HospitalAilcarmTZTOPMKNFI4724-43-00 09:24:00 Test Item Value Reference Range Interpretation Comments RDW (test code = RDW) 12.8 11.5-14.5 [facility] CypressKdpfzzjXKFNUQRLEQ2546-41-85 09:24:00 Test Item Value Reference Range Interpretation Comments Platelet (test code = Platelet) 157 133-450 [facility] CypressQgiqrdoRSXGIJMWXY5312-90-37 09:24:00 Test Item Value Reference Range Interpretation Comments MPV (test code = MPV) 8.4 7.4-10.4 [facility] Muqocihgj6201-94-73 13:45:00 Test Item Value Reference Range Interpretation Comments Culture: Anaerobic No Anaerobes Isolated (test code = Culture: After 5 Days Anaerobic) [facility]: Ccquscryy4045-75-80 13:45:00 Test Item Value Reference Range Interpretation Comments Culture: Anaerobic Rare Propionibacterium (test code = acnes Culture: Anaerobic) [facility] CypressGram Stain Ajyjlw0418-38-11 13:45:00 Test Item Value Reference Range Interpretation Comments Gram Stain Report Moderate WBC's No (test code = Gram Organisms Seen Stain Report) [facility] Aspirate/Body Fluid/Nhiqqz8228-60-20 13:45:00 Test Item Value Reference Range Interpretation Comments Culture: Aspirate/Body Fluid/Tissue No Growth (test code = Culture: Aspirate/Body Fluid/Tissue) [facility]ressGram Stain Hwbpum0484-80-59 13:45:00 Test Item Value Reference Range Interpretation Comments Gram Stain Report Moderate WBC's No (test code = Gram Squamous Epithelial Stain Report) Cells; No Organisms Seen [facility]ressCulture: Wound/Abscess w/Gram [id number] 13:45:00 Test Item Value Reference Range Interpretation Comments Culture: Wound/Abscess w/Gram Stain No Growth (test code = Culture: Wound/Abscess w/Gram Stain) [place] 663521-04-23 08:59:00 Test Item Value Reference Range Interpretation Comments Glucose Lvl (test code = Glucose Lvl) 101 70-99 [place] 663521-04-23 08:59:00 Test Item Value Reference Range Interpretation Comments BUN (test code = BUN) 22 7-22 [place] 663521-04-23 08:59:00 Test Item Value Reference Range Interpretation Comments Creatinine Lvl (test code = Creatinine 0.59 0.50-1.40 Lvl) [place] 663521-04-23 08:59:00 Test Item Value Reference Range Interpretation Comments Sodium Lvl (test code = Sodium Lvl) 143 135-145 [place] 663521-04-23 08:59:00 Test Item Value Reference Range Interpretation Comments Potassium Lvl (test code = Potassium 3.5 3.5-5.1 Lvl) [place] 663521-04-23 08:59:00 Test Item Value Reference Range Interpretation Comments Chloride Lvl (test code = Chloride Lvl) 110 95-109 [place] 663521-04-23 08:59:00 Test Item Value Reference Range Interpretation Comments CO2 (test code = CO2) 24 24-32 [place] 663521-04-23 08:59:00 Test Item Value Reference Range Interpretation Comments Calcium Lvl (test code = Calcium Lvl) 9.2 8.5-10.5 [place] 663521-04-23 08:59:00 Test Item Value Reference Range Interpretation Comments AGAP (test code = AGAP) 12.5 10.0-20.0 [place] 663521-04-23 08:59:00 Test Item Value Reference Range Interpretation Comments eGFR (test code = eGFR) 104 [place] 747591-04-23 08:59:00 Test Item Value Reference Range Interpretation Comments PT (test code = PT) 12.5 s 12.0-14.7 [place] 747591-04-23 08:59:00 Test Item Value Reference Range Interpretation Comments INR (test code = INR) 0.94 1 0.85-1.17 [facility] CypressNgobgryZWNHBVENXJ4449-64-30 08:59:00 Test Item Value Reference Range Interpretation Comments PTT (test code = PTT) 27.7 s 22.9-35.8 [facility] CypressFbwnpmfHKKCHKACAN2782-99-38 08:59:00 Test Item Value Reference Range Interpretation Comments WBC (test code = WBC) 6.6 3.7-10.4 [facility] CypressExqmzjaQTVNPRWZEC2594-46-82 08:59:00 Test Item Value Reference Range Interpretation Comments RBC (test code = RBC) 4.08 4.20-5.40 [facility] CypressQybainhOEKFPYRERC8901-55-49 08:59:00 Test Item Value Reference Range Interpretation Comments Hgb (test code = Hgb) 13.4 12.0-16.0 [facility] CypressSzgdzjsTPIXJBFGLW0747-84-91 08:59:00 Test Item Value Reference Range Interpretation Comments Hct (test code = Hct) 38.8 36.0-48.0 [facility] CypressVxkrybrVKMDCKDTSV4031-53-42 08:59:00 Test Item Value Reference Range Interpretation Comments MCV (test code = MCV) 95.1 80.0-98.0 [facility] CypressIwldncgHDCPWHBXZK9464-08-21 08:59:00 Test Item Value Reference Range Interpretation Comments MCH (test code = MCH) 32.8 pg 27.0-31.0 [facility] CypressHxxflzjWKGGRDKGOB5423-16-52 08:59:00 Test Item Value Reference Range Interpretation Comments MCHC (test code = MCHC) 34.5 32.0-36.0 [facility] CypressCqcsbqiYMZJHDQFSH0385-31-95 08:59:00 Test Item Value Reference Range Interpretation Comments RDW (test code = RDW) 13.2 11.5-14.5 [facility] CypressIjtbobsAHEPUZTRHY3876-50-44 08:59:00 Test Item Value Reference Range Interpretation Comments Platelet (test code = Platelet) 186 133-450 [facility] CypressMiuqzrwMICCURTLFP0218-56-64 08:59:00 Test Item Value Reference Range Interpretation Comments MPV (test code = MPV) 8.6 7.4-10.4 [facility] CypressMaxmryoGNYNLAZSPF6540-50-63 08:59:00 Test Item Value Reference Range Interpretation Comments Segs (test code = Segs) 45.6 45.0-75.0 [place] 747591-04-23 08:59:00 Test Item Value Reference Range Interpretation Comments Lymphocytes (test code = Lymphocytes) 40.5 20.0-40.0 [facility] HospitalEdoiguyPVZUWCSMNB7252-47-82 08:59:00 Test Item Value Reference Range Interpretation Comments Monocytes (test code = Monocytes) 10.2 2.0-12.0 [facility] CypressNopwjkuMOSPMRKSFU8439-48-41 08:59:00 Test Item Value Reference Range Interpretation Comments Eosinophils (test code = Eosinophils) 3.0 <=4.0 [facility] HospitalBftzhylSTIDBEHHOJ0005-71-59 08:59:00 Test Item Value Reference Range Interpretation Comments Basophils (test code = Basophils) 0.7 <=1.0 [place] 747591-04-23 08:59:00 Test Item Value Reference Range Interpretation Comments Neutrophils # (test code = Neutrophils 3.0 1.5-8.1 #) [facility] CypressJfuocngNPEZVJFJQH7424-48-81 08:59:00 Test Item Value Reference Range Interpretation Comments Lymphocytes # (test code = Lymphocytes 2.7 1.0-5.5 #) [facility] CypressAumgxzhDKRVTNNKKV1204-43-27 08:59:00 Test Item Value Reference Range Interpretation Comments Monocytes # (test code = Monocytes #) 0.7 <=0.8 [place] 747591-04-23 08:59:00 Test Item Value Reference Range Interpretation Comments Eosinophils # (test code = Eosinophils 0.2 <=0.5 #) [facility] CypressCulture: [id number] 20:00:00 Test Item Value Reference Range Interpretation Comments Culture: Urine Specimen contains 3 or (test code = more potential pathogens; Culture: Urine) recommend correlation with urinalysis; if catheterized specimen recommend removal and recollection. If clinical situation warrants please call the laboratory for further testing. [place] Microbiology [phone]. [facility] CypressVusenjwMGMSBQXDEP2390-36-75 11:55:00 Test Item Value Reference Range Interpretation Comments ASA Effect Plt (test code = ASA Effect 483 Plt) [facility] [facility]TcczgisVNHLRKQCYQ0259-62-31 11:55:00 Test Item Value Reference Range Interpretation Comments Plav Effect Plt (test code = Plav 230 Effect Plt) [facility]ressTriitsvVVXGELXKNT0104-62-38 09:32:00 Test Item Value Reference Range Interpretation Comments PT (test code = PT) 12.2 s 12.0-14.7 [facility] CypressGgfmwuiUIIMYLBGDS6387-06-06 09:32:00 Test Item Value Reference Range Interpretation Comments INR (test code = INR) 0.91 1 0.85-1.17 [facility] CypressJaxxhpiSKDQODATSL1048-53-86 09:32:00 Test Item Value Reference Range Interpretation Comments PTT (test code = PTT) 29.2 s 22.9-35.8 [facility] [id number] 09:30:00 Test Item Value Reference Range Interpretation Comments ABO/Rh (test code = ABO/Rh) A POS [facility] [id number] 09:30:00 Test Item Value Reference Range Interpretation Comments Antibody Scrn (test Negative (08/16/20 4:30 code = Antibody Scrn) AM) [facility] [id number] 09:30:00 Test Item Value Reference Range Interpretation Comments Procalcitonin Lvl (test code = <0.05 ng/mL <=0.10 Procalcitonin Lvl) [facility]ressWnfricnRISWFTMHVC3711-20-92 09:30:00 Test Item Value Reference Range Interpretation Comments Sed Rate (test code = Sed Rate) 3 <=20 [facility] CypressYztanwpEJWIEREPBM3911-89-75 09:30:00 Test Item Value Reference Range Interpretation Comments ACT (TEG) Rapid (test code = ACT (TEG) 89 s 86-118 Rapid) [facility]ressApcafpjSIJAYGSLBJ1891-13-43 09:30:00 Test Item Value Reference Range Interpretation Comments Split Point Rapid (test code = Split 0.3 min Point Rapid) [facility]ressJbleuobEBQAUKFQWT6632-67-61 09:30:00 Test Item Value Reference Range Interpretation Comments R-time Rapid (test code = R-time 0.4 min 0.4-0.7 Rapid) [facility] CypressJecrundGMYXDYHTVL0365-93-93 09:30:00 Test Item Value Reference Range Interpretation Comments K-time Rapid (test code = K-time 1.4 min 0.6-2.3 Rapid) [facility] CypressNfdiwgdNNIOILYGBM6118-34-81 09:30:00 Test Item Value Reference Range Interpretation Comments Angle Rapid (test code = Angle 75 degrees 64-80 Rapid) [facility]ressQhntbtkBVOLQYVGHK4822-84-67 09:30:00 Test Item Value Reference Range Interpretation Comments Max Amplitude Rapid (test code = Max 63 mm 52-71 Amplitude Rapid) [facility] CypressJnhjijfZBECFYFIMA5950-48-14 09:30:00 Test Item Value Reference Range Interpretation Comments G-value Rapid (test code = G-value 8.6 5.0-11.6 Rapid) [facility]ressQqoptpeVHBFUGXGXM4740-59-01 09:30:00 Test Item Value Reference Range Interpretation Comments Estimated % Lysis Rapid (test code = 0.3 <=7.5 Estimated % Lysis Rapid) [facility]PC[facility]287[facility]-90 09:30:00 Test Item Value Reference Range Interpretation Comments C-REACTIVE PROTEIN (test code = no gt C-REACTIVE PROTEIN) [place] [id number] 08:43:00 Test Item Value Reference Range Interpretation Comments Coronavirus (COVID-19) Not Detected (08/16/20 KASSY (test code = 3:43 AM) Coronavirus (COVID-19) KASSY) [facility] AND [id number] 08:20:45 Test Item Value Reference Range Interpretation Comments UA Color (test code = Yellow *NA*(08/16/20 UA Color) 3:20 AM) [facility] AND [id number] 08:20:45 Test Item Value Reference Range Interpretation Comments UA Turbidity (test code Slight *ABN*(08/16/20 = UA Turbidity) 3:20 AM) [facility] AND [id number] 08:20:45 Test Item Value Reference Range Interpretation Comments UA Spec Grav (test code = UA Spec 1.019 1 Grav) [facility] AND [id number] 08:20:45 Test Item Value Reference Range Interpretation Comments UA pH (test code = UA pH) 6.0 1 5.0-8.0 [facility] AND [id number] 08:20:45 Test Item Value Reference Range Interpretation Comments UA Protein (test code = UA Negative mg/dL Protein) [facility] AND [id number] 08:20:45 Test Item Value Reference Range Interpretation Comments UA Glucose (test code = UA Negative mg/dL Glucose) [facility] AND [id number] 08:20:45 Test Item Value Reference Range Interpretation Comments UA Ketones (test code = UA Trace mg/dL Ketones) [facility] [id number] 08:20:45 Test Item Value Reference Range Interpretation Comments UA Bili (test code = Negative *NA*(08/16/20 UA Bili) 3:20 AM) [facility] [id number] 08:20:45 Test Item Value Reference Range Interpretation Comments UA Blood (test code = Negative (08/16/20 3:20 UA Blood) AM) [facility] [id number] 08:20:45 Test Item Value Reference Range Interpretation Comments UA Urobilinogen (test code = UA no gt 0.1-1.0 Urobilinogen) [facility] [id number] 08:20:45 Test Item Value Reference Range Interpretation Comments UA Nitrite (test code Negative (08/16/20 3:20 = UA Nitrite) AM) [facility] [id number] 08:20:45 Test Item Value Reference Range Interpretation Comments UA Leuk Est (test Moderate *ABN*(08/16/20 code = UA Leuk Est) 3:20 AM) [facility] [id number] 08:20:45 Test Item Value Reference Range Interpretation Comments UA Sq Epi (test code = UA Sq Moderate /LPF Epi) [facility] [id number] 08:20:45 Test Item Value Reference Range Interpretation Comments UA WBC (test code = UA WBC) 26 <=5 [facility] [id number] 08:20:45 Test Item Value Reference Range Interpretation Comments UA RBC (test code = UA RBC) 10 <=2 [facility] [id number] 08:20:45 Test Item Value Reference Range Interpretation Comments UA Bacteria (test code = UA Occasional /HPF Bacteria) [facility] [id number] 08:20:45 Test Item Value Reference Range Interpretation Comments UA Mucus (test code = UA Mucus) Few /LPF [facility] [id number] 08:00:39 Test Item Value Reference Range Interpretation Comments Lactic Acid Lvl (test code = Lactic 1.7 0.5-2.2 Acid Lvl) [facility] ZxwyvfjCGPWRNGPLN8784-47-23 07:07:00 Test Item Value Reference Range Interpretation Comments Hep C Ab (test code = Hep C Ab) NON-REACTIVE [facility]ressQsofhnvDNXSSUASTT6795-12-66 07:07:00 Test Item Value Reference Range Interpretation Comments Hep Signal to Cut-Off (test code = Hep 0.19 1 Signal to Cut-Off) [facility] CypressAkkuimaHRRCCCUAYI7745-84-17 07:07:00 Test Item Value Reference Range Interpretation Comments [facility] HIV 4th GEN (test Negative *NA*(08/16/20 code = CDC HIV 4th 2:07 AM) GEN) [facility]2021-04-20 22:26:00 Test Item Value Reference Range Interpretation Comments Glucose Lvl (test code = Glucose Lvl) 84 70-99 [facility]2021-04-20 22:26:00 Test Item Value Reference Range Interpretation Comments BUN (test code = BUN) 26 7-22 [facility]2021-04-20 22:26:00 Test Item Value Reference Range Interpretation Comments Creatinine Lvl (test code = Creatinine 0.60 0.50-1.40 Lvl) [facility]2021-04-20 22:26:00 Test Item Value Reference Range Interpretation Comments Sodium Lvl (test code = Sodium Lvl) 143 135-145 [facility]2021-04-20 22:26:00 Test Item Value Reference Range Interpretation Comments Potassium Lvl (test code = Potassium 4.3 3.5-5.1 Lvl) [facility]2021-04-20 22:26:00 Test Item Value Reference Range Interpretation Comments Chloride Lvl (test code = Chloride Lvl) 111 95-109 [facility]2021-04-20 22:26:00 Test Item Value Reference Range Interpretation Comments CO2 (test code = CO2) 30 24-32 [facility]2021-04-20 22:26:00 Test Item Value Reference Range Interpretation Comments Calcium Lvl (test code = Calcium Lvl) 9.6 8.5-10.5 [facility]2021-04-20 22:26:00 Test Item Value Reference Range Interpretation Comments AGAP (test code = AGAP) 6.3 10.0-20.0 [facility]2021-04-20 22:26:00 Test Item Value Reference Range Interpretation Comments eGFR (test code = eGFR) 103 [facility]ressEzdpnrxZUIVKSIMSL4587-85-65 22:26:00 Test Item Value Reference Range Interpretation Comments WBC X 10x3 (test code = WBC X 10x3) 6.1 3.7-10.4 [facility] CypressPfmhajqDSKZXOOCEN4956-95-66 22:26:00 Test Item Value Reference Range Interpretation Comments RBC X 10x6 (test code = RBC X 10x6) 4.49 4.20-5.40 [facility] CypressZfjladjFNEIXKLYAB1694-98-70 22:26:00 Test Item Value Reference Range Interpretation Comments Hgb (test code = Hgb) 14.3 12.0-16.0 [facility] CypressHkohbljZTUZVCQGOB3708-56-91 22:26:00 Test Item Value Reference Range Interpretation Comments Hct (test code = Hct) 43.1 36.0-48.0 [facility] CypressMuqocxqPKAZAFIBGF5961-27-42 22:26:00 Test Item Value Reference Range Interpretation Comments MCV (test code = MCV) 96.0 80.0-98.0 [facility] CypressPcamysvVXYDEELSPC9868-00-96 22:26:00 Test Item Value Reference Range Interpretation Comments MCH (test code = MCH) 32.0 pg 27.0-31.0 [facility] CypressBvxtmekOYFBUYFAPF4566-35-18 22:26:00 Test Item Value Reference Range Interpretation Comments MCHC (test code = MCHC) 33.3 32.0-36.0 [facility] CypressYfxflpgWOHZXTOMEG0447-09-39 22:26:00 Test Item Value Reference Range Interpretation Comments RDW (test code = RDW) 13.2 11.5-14.5 [facility]ressNsrxdwyUARNMVTIMR4851-11-35 22:26:00 Test Item Value Reference Range Interpretation Comments Platelet (test code = Platelet) 230 133-450 [facility]ressImpieyoMVVZKTMZJV3795-78-24 22:26:00 Test Item Value Reference Range Interpretation Comments MPV (test code = MPV) 8.4 7.4-10.4 [facility] CypressOigwczoZJLKXFPHEX4757-74-46 22:26:00 Test Item Value Reference Range Interpretation Comments Segs (test code = Segs) 50.7 45.0-75.0 [facility] CypressNqyqweiMGEOHPVXKV6580-20-71 22:26:00 Test Item Value Reference Range Interpretation Comments Lymphocytes (test code = Lymphocytes) 36.2 20.0-40.0 [facility] CypressDwcgdoxMIFFVJJWPO3598-28-72 22:26:00 Test Item Value Reference Range Interpretation Comments Monocytes (test code = Monocytes) 10.3 2.0-12.0 [facility] CypressKedfxjgWHWVFKIJKM2033-22-34 22:26:00 Test Item Value Reference Range Interpretation Comments Eosinophils (test code = Eosinophils) 2.1 <=4.0 [facility]ressWgszqlcBIMQIBKAPG1332-23-40 22:26:00 Test Item Value Reference Range Interpretation Comments Basophils (test code = Basophils) 0.7 <=1.0 [facility] CypressUjteeylMXEHXCFNKN9385-93-63 22:26:00 Test Item Value Reference Range Interpretation Comments Neutrophils # (test code = Neutrophils 3.1 1.5-8.1 #) [facility]ressKjzpkwsGGDPHXQIWO1667-71-51 22:26:00 Test Item Value Reference Range Interpretation Comments Lymphocytes # (test code = Lymphocytes 2.2 1.0-5.5 #) [facility]ressAazbdwtXFBIMPFXUD2477-26-24 22:26:00 Test Item Value Reference Range Interpretation Comments Monocytes # (test code = Monocytes #) 0.6 <=0.8 [facility] CypressSvzcdxnRFKDTCNPNH8966-90-45 22:26:00 Test Item Value Reference Range Interpretation Comments Eosinophils # (test code = Eosinophils 0.1 <=0.5 #) [facility] Anticoagulant Screen with Reflex To Fcubialeupfk4807-29-05 17:47:00 Test Item Value Reference Interpretation Comments Range DRVV Screen Ratio 0.85 <1.20 (test code = 2707) Interpretations (test Negative screen for code = 2406) Lupus Anticoagulant Protime (test code = 12.7 See_Comment [Autom ated 4182-2) message] The system which generated this result transmitted reference range : 11.9 - 14.2 seconds. The reference range was not used to interpret this result as normal/abnormal . INR (test code = 0.98 See_Comment [Automated 9671-6) message] The system which generated this result transmitted reference range : <=5.90. The reference range was not used to interpret this result as normal/abnormal . PTT (test code = 30.9 See_Comment [Automated 90735-0) message] The system which generated this result transmitted reference range : 22.5 - 36.0 seconds. The reference range was not used to interpret this result as normal/abnormal . PTT-LA (test code = 35.7 32.0-41.8 80485-3) Pathologist: (magalys Christiansen M.D. code = 2610) (electonic signature) [facility] To Rfvjiklipqqx6921-13-93 17:47:00 Test Item Value Reference Interpretation Comments [...] PTT (test code = 30.9 See_Comment [Automated 05955-1) message] The system which generated this result transmitted reference range : 22.5 - 36.0 seconds. The reference range was not used to interpret this result as normal/abnormal . PTT-LA (test code = 35.7 32.0-41.8 25172-0) Pathologist: (magalys Christiansen M.D. code = 2610) (electonic signature) [facility] with Reflex To Ptlrzjcqrxkn4830-23-00 17:47:00 Test Item Value Reference Interpretation Comments [...] PTT (test code = 30.9 See_Comment [Automated 64096-7) message] The system which generated this result transmitted reference range : 22.5 - 36.0 seconds. The reference range was not used to interpret this result as normal/abnormal . PTT-LA (test code = 35.7 32.0-41.8 76859-9) Pathologist: (test Deacon Christiansen M.D. code = 2610) (electonic signature) [facility] with Reflex To Rmnwdxwutbtz9280-55-69 17:47:00 Test Item Value Reference Interpretation Comments [...] INR (test code = 0.98 See_Comment [Automated [x+1]1-6) message] The system which generated this result transmitted reference range : <=5.90. The reference range was not used to interpret this result as normal/abnormal . PTT (test code = 30.9 See_Comment [Automated 62720-5) message] The system which generated this result transmitted reference range : 22.5 - 36.0 seconds. The reference range was not used to interpret this result as normal/abnormal . PTT-LA (test code = 35.7 32.0-41.8 69729-1) Pathologist: (test Deacon Christiansen M.D. code = 2610) (electonic signature) [facility] with Reflex To Aftrsmbgphzm5001-79-89 17:47:00 Test Item Value Reference Interpretation Comments [...] PTT (test code = 30.9 See_Comment [Automated 57197-8) message] The system which generated this result transmitted reference range : 22.5 - 36.0 seconds. The reference range was not used to interpret this result as normal/abnormal . PTT-LA (test code = 35.7 32.0-41.8 96741-4) Pathologist: (magalys Christiansen M.D. code = 2610) (electonic signature) [facility] with Reflex To Ksogvblwjvvc2892-43-16 17:47:00 Test Item Value Reference Interpretation Comments [...] PTT (test code = 30.9 See_Comment [Automated 32351-4) message] The system which generated this result transmitted reference range : 22.5 - 36.0 seconds. The reference range was not used to interpret this result as normal/abnormal . PTT-LA (test code = 35.7 32.0-41.8 18746-2) Pathologist: (magalys Christiansen M.D. code = 2610) (electonic signature) [facility] S[facility]EN WITH REFLEX TO [id number] 17:47:00 Test Item Value Reference Range Interpretation [...] PTT-LA (BEAKER) (test 35.7 32.0-41.8 code = 0588198936) [id number] Deacon Christiansen M.D. (OSIRIS) (test code = (electonic signature) 0850) Tclx-3-Sbcevyjdotto I [id number] 14:42:00 Test Item Value Reference Range Interpretation Comments Beta-2 Glycoprotein <9 See_Comment [Automa gill I Ab, IgG (test message] The code = 07775-7) system which generated this result transmitted reference range : < OR = 20 SGU. The reference range was not used to interpr et this result as normal/abnormal . AYESHA (test code = Performing Lab EZ AYESHA) [employer] [facility] [address] [place] [address] Dawson Portillo MD, PhD, [facility]EK[facility] CenterBeta-2-Glycoprotein I [id number] 14:42:00 Test Item Value Reference Range Interpretation Comments Beta-2 Glycoprotein <9 See_Comment [Automa gill I Ab, IgM (test message] The code = 71950-4) system which generated this result transmitted reference range : < OR = 20 SMU. The reference range was not used to interpr et this result as normal/abnormal . AYESHA (test code = Performing Lab EZ AYESHA) [facility] [facility] [id number] [place] [address] Dawson Portillo MD, PhD, [facility]EK[facility] CenterBeta-2-Glycoprotein I [id number] 14:42:00 Test Item Value Reference Interpretation Comments Range Beta-2 <9 See_Comment The antiphospho lipid antibody Glycoprotein I syndrome (APS ) lisa Ab, IgA (test clinical-patho logic code = 88376-4) correlation that includesa clinical event (e.g. thrombosis, pre gnancyloss, thrombocytopeni a) and persistent positiveantipho spholipid antibodies (IgM or IgG CARTER>40 MPL/GPL,IgM or IgG anti-b2GPI antibodies ora lupus anticoagulant). International consensusguidel zara for APS suggest waiting at least 12weeks before retesting to confirm antibod ypersistence. [facility] immunologicalcl assification criteria for [facility] lupuserythemato renetta (SLE) include testing for isotypeIgA, [...] (test code Performing Lab = AYESHA) [facility] [address] [place] [address] Dawson Portillo MD, PhD, [facility]EK[facility] CenterBeta-2-Glycoprotein I [id number] 14:42:00 Test Item Value Reference Range Interpretation Comments Beta-2 Glycoprotein <9 See_Comment [Automa gill I Ab, IgG (test message] The code = 75919-4) system which generated this result transmitted reference range : < OR = 20 SGU. The reference range was not used to interpr et this result as normal/abnormal . AYESHA (test code = Performing Lab EZ AYESHA) [facility] [address] [place] [address] Dawson Portillo MD, PhD, [facility] CenterBeta-2-Glycoprotein I [id number] 14:42:00 Test Item Value Reference Range Interpretation Comments Beta-2 Glycoprotein <9 See_Comment [Automa gill I Ab, IgM (test message] The code = 62589-7) system which generated this result transmitted reference range : < OR = 20 SMU. The reference range was not used to interpr et this result as normal/abnormal . AYESHA (test code = Performing Lab EZ AYESHA) [facility] [address] [place] [address] Dawson Portillo MD, PhD, [facility] CenterBeta-2-Glycoprotein I [id number] 14:42:00 Test Item Value Reference Interpretation Comments Range Beta-2 <9 See_Comment The antiphospho lipid antibody Glycoprotein I syndrome (APS ) lisa Ab, IgA (test clinical-patho logic code = 08928-3) correlation that includesa clinical event (e.g. thrombosis, pre gnancyloss, thrombocytopeni a) and persistent positiveantipho spholipid antibodies (IgM or IgG CARTER>40 MPL/GPL,IgM or IgG anti-b2GPI antibodies ora lupus anticoagulant). International consensusguidel zara for APS suggest waiting at least 12weeks before retesting to confirm antibod ypersistence. The [facility] llaborating [facility] immunologicalcl assification criteria for [facility] lupuserythemato renetta (SLE) include testing for isotypeIgA, whi ch has yet to be incorporated into APScriteria. Lo w level antiphospholipi d antibodiesmay s ometimes be detected in the setting ofinfection, dr ug therapy or aging. [Automat ed message] The system [employer] generated this result tra nsmitted reference range : < OR = 20 NEGIN. The refere nce range was not used to int erpret this result as len l/abnormal. AYESHA (test code Performing Lab = AYESHA) [facility] [address] [place] [address] Dawson Portillo MD, PhD, VICENTE [facility] HospitalBeta-2-Glycoprotein I [id number] 14:42:00 Test Item Value Reference Range Interpretation Comments Beta-2 Glycoprotein <9 See_Comment [Automa gill I Ab, IgG (test message] The code = 20413-7) system which generated this result transmitted reference range : < OR = 20 SGU. The reference range was not used to interpr et this result as normal/abnormal . AYESHA (test code = Performing Lab EZ AYESHA) [facility] [address] [place] [address] Dawson Portillo MD, PhD, VICENTE [facility] HospitalBeta-2-Glycoprotein I [id number] 14:42:00 Test Item Value Reference Range Interpretation Comments Beta-2 Glycoprotein <9 See_Comment [Automa gill I Ab, IgM (test message] The code = 88861-9) system which generated this result transmitted reference range : < OR = 20 SMU. The reference range was not used to interpr et this result as normal/abnormal . AYESHA (test code = Performing Lab EZ AYESHA) [employer] [facility] [address] [place] [address] Dawson Portillo MD, PhD, [facility]EK[facility] CenterBeta-2-Glycoprotein I [id number] 14:42:00 Test Item Value Reference Interpretation Comments Range Beta-2 <9 See_Comment The antiphospho lipid antibody Glycoprotein I syndrome (APS ) lisa Ab, IgA (test clinical-patho logic code = 14507-7) correlation that includesa clinical event (e.g. thrombosis, pre gnancyloss, thrombocytopeni a) and persistent positiveantipho spholipid antibodies (IgM or IgG CARTER>40 MPL/GPL,IgM or IgG anti-b2GPI antibodies ora lupus anticoagulant). International consensusguidel zara for APS suggest waiting at least 12weeks before retesting to confirm antibod ypersistence. The [facility] llaborating [facility] immunologicalcl assification criteria for [facility] lupuserythemato renetta (SLE) include testing for isotypeIgA, whi ch has yet to be incorporated into APScriteria. Lo w level antiphospholipi d antibodiesmay s ometimes be detected in the setting ofinfection, dr ug therapy or aging. [Automat ed message] The system [employer] generated this result tra nsmitted reference range : < OR = 20 NEGIN. The refere nce range was not used to int erpret this result as len l/abnormal. AYESHA (test code Performing Lab = AYESHA) [facility] [employer] [facility] [address] [place] [address] Dawson Portillo MD, PhD, [facility] CenterBeta-2-Glycoprotein I [id number] 14:42:00 Test Item Value Reference Range Interpretation Comments Beta-2 Glycoprotein <9 See_Comment [Automa gill I Ab, IgG (test message] The code = 79205-0) system which generated this result transmitted reference range : < OR = 20 SGU. The reference range was not used to interpr et this result as normal/abnormal . AYESHA (test code = Performing Lab EZ AYESHA) [employer] [facility] [address] [place] [address] Dawson Portillo MD, PhD, [facility] CenterBeta-2-Glycoprotein I [id number] 14:42:00 Test Item Value Reference Range Interpretation Comments Beta-2 Glycoprotein <9 See_Comment [Automa gill I Ab, IgM (test message] The code = 96376-6) system which generated this result transmitted reference range : < OR = 20 SMU. The reference range was not used to interpr et this result as normal/abnormal . AYESHA (test code = Performing Lab EZ AYESHA) [employer] [facility] [address] [place] [address] Dawson Portillo MD, PhD, [facility] CenterBeta-2-Glycoprotein I [id number] 14:42:00 Test Item Value Reference Interpretation Comments Range Beta-2 <9 See_Comment The antiphospho lipid antibody Glycoprotein I syndrome (APS ) lisa Ab, IgA (test clinical-patho logic code = 14075-6) correlation that includesa clinical event (e.g. thrombosis, pre gnancyloss, thrombocytopeni a) and persistent positiveantipho spholipid antibodies (IgM or IgG CARTER>40 MPL/GPL,IgM or IgG anti-b2GPI antibodies ora lupus anticoagulant). International consensusguidel zara for APS suggest waiting at least 12weeks before retesting to confirm antibod ypersistence. The [facility] llaborating [facility] immunologicalcl assification criteria for [facility] lupuserythemato renetta (SLE) include testing for isotypeIgA, [...] used to int erpret this result as eln l/abnormal. AYESHA (test code Performing Lab = AYESHA) [facility] [address] [place] [address] Dawson Portillo MD, PhD, [facility] CenterBeta-2-Glycoprotein I [id number] 14:42:00 Test Item Value Reference Range Interpretation Comments Beta-2 Glycoprotein <9 See_Comment [Automa gill I Ab, IgG (test message] The code = 50356-1) system which generated this result transmitted reference range : < OR = 20 SGU. The reference range was not used to interpr et this result as normal/abnormal . AYESHA (test code = Performing Lab EZ AYESHA) [employer] [facility] [address] [place] [address] Dawson Portillo MD, PhD, [facility] CenterBeta-2-Glycoprotein I [id number] 14:42:00 Test Item Value Reference Range Interpretation Comments Beta-2 Glycoprotein <9 See_Comment [Automa gill I Ab, IgM (test message] The code = 70153-5) system which generated this result transmitted reference range : < OR = 20 SMU. The reference range was not used to interpr et this result as normal/abnormal . AYESHA (test code = Performing Lab EZ AYESHA) [employer] [facility] [address] [place] [address] Dawson Portillo MD, PhD, [facility] CenterBeta-[facility]-Glycoprotein I [id number] 14:42:00 Test Item Value Reference Interpretation Comments Range Beta-2 <9 See_Comment The antiphospho lipid antibody Glycoprotein I syndrome (APS ) lisa Ab, IgA (test clinical-patho logic code = 53662-1) correlation that includesa clinical event (e.g. thrombosis, pre gnancyloss, thrombocytopeni a) and persistent positiveantipho spholipid antibodies (IgM or IgG CARTER>40 MPL/GPL,IgM or IgG anti-b2GPI antibodies ora lupus anticoagulant). International consensusguidel zara for APS suggest waiting at least 12weeks before retesting to confirm antibod ypersistence. The [facility] llaborating [facility] immunologicalcl assification criteria for [facility] lupuserythemato renetta (SLE) include testing for isotypeIgA, [...] (test code Performing Lab = AYESHA) [facility] [address] [place] [address] Dawson Portillo MD, PhD, [facility] CenterBeta-2-Glycoprotein I [id number] 14:42:00 Test Item Value Reference Range Interpretation Comments Beta-2 Glycoprotein <9 See_Comment [Automa gill I Ab, IgG (test message] The code = 05756-5) system which generated this result transmitted reference range : < OR = 20 SGU. The reference range was not used to interpr et this result as normal/abnormal . AYESHA (test code = Performing Lab EZ AYESHA) [employer] [place] [id number] [place] [address] I Lindsey LUTZ, PhD, [facility] CenterBeta-2-Glycoprotein I [id number] 14:42:00 Test Item Value Reference Range Interpretation Comments Beta-2 Glycoprotein <9 See_Comment [Automa gill I Ab, IgM (test message] The code = 79753-0) system which generated this result transmitted reference range : < OR = 20 SMU. The reference range was not used to interpr et this result as normal/abnormal . AYESHA (test code = Performing Lab EZ AYESHA) [employer] [place] [address] [place] [address] Dawson Portillo MD, PhD, [facility] CenterBeta-2-Glycoprotein I [id number] 14:42:00 Test Item Value Reference Interpretation Comments Range Beta-2 <9 See_Comment The antiphospho lipid antibody Glycoprotein I syndrome (APS ) lisa Ab, IgA (test clinical-patho logic code = 01480-9) correlation that includesa clinical event (e.g. thrombosis, pre gnancyloss, thrombocytopeni a) and persistent positiveantipho spholipid antibodies (IgM or IgG CARTER>40 MPL/GPL,IgM or IgG anti-b2GPI antibodies ora lupus anticoagulant). International consensusguidel zara for APS suggest waiting at least 12weeks before retesting to confirm antibod ypersistence. [facility] assification criteria for [facility] lupuserythemato renetta (SLE) include testing for isotypeIgA, whi ch has yet to be incorporated into APScriteria. Lo w level antiphospholipi d antibodiesmay s ometimes be detected in the setting ofinfection, dr ug therapy or aging. [Automat ed message] The system [employer] generated this result tra nsmitted reference range : < OR = 20 NEGIN. The refere nce range was not used to int erpret this result as len l/abnormal. AYESHA (test code Performing Lab = AYESHA) [employer] [facility] [address] [place] [address] Dawson Portillo MD, PhD, [facility] HospitalBeta-2 glycoprotein [id number] 13:01:00 Test Item Value Reference Range Interpretation Comments B2 Glcoprotein Ab Refer to individual Profile (test code = B2-Glycoprotein IgG, 2557) IgM and IgA results. [facility]Beta-2 glycoprotein [id number] 13:01:00 Test Item Value Reference Range Interpretation Comments B2 Glcoprotein Ab Refer to individual Profile (test code = B2-Glycoprotein IgG, 2557) IgM and IgA results. [facility]Beta[facility]2 glycoprotein [id number] 13:01:00 Test Item Value Reference Range Interpretation Comments B2 Glcoprotein Ab Refer to individual Profile (test code = B2-Glycoprotein IgG, 2557) IgM and IgA results. [facility]Beta[facility]2 glycoprotein [id number] 13:01:00 Test Item Value Reference Range Interpretation Comments B2 Glcoprotein Ab Refer to individual Profile (test code = B2-Glycoprotein IgG, 2557) IgM and IgA results. [facility] glycoprotein [id number] 13:01:00 Test Item Value Reference Range Interpretation Comments B2 Glcoprotein Ab Refer to individual Profile (test code = B2-Glycoprotein IgG, 2557) IgM and IgA results. [facility]Beta[facility]2 glycoprotein [id number] 13:01:00 Test Item Value Reference Range Interpretation Comments B2 Glcoprotein Ab Refer to individual Profile (test code = B2-Glycoprotein IgG, 2557) IgM and IgA results. [facility] HospitalValproic acid level, [id number] 10:52:00 Test Item Value Reference Range Interpretation Comments Valproic Acid, Total 86 ug/mL 50-100 (test code = 4086-5) AYESHA (test code = AYESHA) Therapeutic range for some clinical conditions may be >100 ug/mL Lab Interpretation (test Normal code = 53361-6) [facility] HospitalValproic acid level, [id number] 10:52:00 Test Item Value Reference Range Interpretation Comments Valproic Acid, Total 86 ug/mL 50-100 (test code = 4086-5) AYESHA (test code = AYESHA) Therapeutic range for some clinical conditions may be >100 ug/mL Lab Interpretation (test Normal code = 05198-3) [facility] HospitalValpro[facility] acid level, [id number] 10:52:00 Test Item Value Reference Range Interpretation Comments Valproic Acid, Total 86 ug/mL 50-100 (test code = 4086-5) AYESHA (test code = AYESHA) Therapeutic range for some clinical conditions may be >100 ug/mL Lab Interpretation (test Normal code = 10248-8) [facility] HospitalValpro[facility] level, [id number] 10:52:00 Test Item Value Reference Range Interpretation Comments Valproic Acid, Total 86 ug/mL 50-100 (test code = 4086-5) AYESHA (test code = AYESHA) Therapeutic range for some clinical conditions may be >100 ug/mL Lab Interpretation (test Normal code = 99368-1) [facility] HospitalValpro[facility] acid level, [id number] 10:52:00 Test Item Value Reference Range Interpretation Comments Valproic Acid, Total 86 ug/mL 50-100 (test code = 4086-5) AYESHA (test code = AYESHA) Therapeutic range for some clinical conditions may be >100 ug/mL Lab Interpretation (test Normal code = 43703-8) [facility] HospitalVal[facility] level, [id number] 10:52:00 Test Item Value Reference Range Interpretation Comments Valproic Acid, Total 86 ug/mL 50-100 (test code = 4086-5) AYESHA (test code = AYESHA) Therapeutic range for some clinical conditions may be >100 ug/mL Lab Interpretation (test Normal code = 81497-0) [facility] HospitalVALPROIC ACID LEVEL, [id number] 10:52:00 Test Item Value Reference Range Interpretation [...] (test code antibody syndrome (APS) lisa = [id number]) clinical-pathol ogic correlation indio t includesa clinical event (e.g. thrombosis, pre gnancyloss, thrombocytopeni a) and persistent positiveantipho spholipid antibodies (IgM or IgG CARTER>40 MPL/GPL, IgM or IgG anti-b2GPI anti bodies ora lupus anticoagu lant). International consensusguidel zara for APS suggest waiting at least 12weeks before retesting to confirm antibod ypersistence. The [facility] llaborating Clinics immunologicalcl assification criteria for [facility] lupuserythemato renetta (SLE) include testing for isotypeIgA, [...] (test code = Performing AYESHA) Lab EZ [employer] [facility] [address] [place] [address] Dawson Portillo MD, PhD, V[facility] HospitalPhosphatidylserine Abs (IgG, IgM)2020-01-09 13:03:00 Test Item Value Reference Interpretation Comments Range PHOSPHATIDYLSERINE <10 U/mL <10 Nega tive 10-20 AB(IGG) (test code = Equivoc al- Found in small 4650) percentage of t he healthy population; may be reactive >20 Positive - Risk factor for thrombosis and loss PHOSPHATIDYLSERINE <25 U/mL The antip hospholipid AB (IGM) (test code antibody syndrome (APS) lisa = [id number]) clinical-pathol ogic correlation indio t includesa clinical event (e.g. thrombosis, pre gnancyloss, thrombocytopeni a) and persistent positiveantipho spholipid antibodies (IgM or IgG CARTER>40 MPL/GPL, IgM or IgG anti-b2GPI anti bodies ora lupus anticoagu lant). International consensusguidel zara for APS suggest waiting at least 12weeks before retesting to confirm antibod ypersistence. [facility] immunologicalcl assification criteria for [facility] lupuserythemato renetta (SLE) include testing for isotypeIgA, [...] (test code = Performing AYESHA) Lab EZ [employer] [facility] [address] [place] [address] Dawson Portillo MD, PhD, VIC[facility] HospitalPhosphatidylserine Abs (IgG, IgM)2020-01-09 13:03:00 Test Item Value Reference Interpretation Comments Range PHOSPHATIDYLSERINE <10 U/mL <10 Nega tive 10-20 AB(IGG) (test code = Equivoc al- Found in small 4650) percentage of t he healthy population; may be reactive >20 Positive - Risk factor for thrombosis and loss PHOSPHATIDYLSERINE <25 U/mL The antip hospholipid AB (IGM) (test code antibody syndrome (APS) lisa = [id number]) clinical-pathol ogic correlation indio t includesa clinical event (e.g. thrombosis, pre gnancyloss, thrombocytopeni a) and persistent positiveantipho spholipid antibodies (IgM or IgG CARTER>40 MPL/GPL, IgM or IgG anti-b2GPI anti bodies ora lupus anticoagu lant). International consensusguidel zara for APS suggest waiting at least 12weeks before retesting to confirm antibod ypersistence. The [facility] immunologicalcl assification criteria for sy stemic lupuserythemato [...] (test code = Performing AYESHA) Lab EZ [employer] [facility] [address] [place] [address] Dawson Portillo MD, PhD, VICENTE [facility] HospitalPhosphatidylser[facility] Abs (IgG, IgM)2020-01-09 13:03:00 Test Item Value Reference Interpretation Comments Range PHOSPHATIDYLSERINE <10 U/mL <10 Nega tive 10-20 AB(IGG) (test code = Equivoc al- Found in small 4650) percentage of t he healthy population; may be reactive >20 Positive - Risk factor for thrombosis and loss PHOSPHATIDYLSERINE <25 U/mL The antip hospholipid AB (IGM) (test code antibody syndrome (APS) lisa = [id number]) clinical-pathol ogic correlation indio t includesa clinical event (e.g. thrombosis, pre gnancyloss, thrombocytopeni a) and persistent positiveantipho spholipid antibodies (IgM or IgG CARTER>40 MPL/GPL, IgM or IgG anti-b2GPI anti bodies ora lupus anticoagu lant). International consensusguidel zara for APS suggest waiting at least 12weeks before retesting to confirm antibod ypersistence. The [facility] immunologicalcl assification criteria for sy stemic lupuserythemato [...] (test code = Performing AYESHA) Lab EZ [employer] [place] [address] [place] [address] Dawson Portillo MD, PhD, [facility] CenterPhosphatidylserine Abs (IgG, IgM)2020-01-09 13:03:00 Test Item Value Reference Interpretation Comments Range PHOSPHATIDYLSERINE <10 U/mL <10 Nega tive 10-20 AB(IGG) (test code = Equivoc al- Found in small 4650) percentage of t he healthy population; may be reactive >20 Positive - Risk factor for thrombosis and loss PHOSPHATIDYLSERINE <25 U/mL The antip hospholipid AB (IGM) (test code antibody syndrome (APS) lisa = [id number]) clinical-pathol ogic correlation indio t includesa clinical event (e.g. thrombosis, pre gnancyloss, thrombocytopeni a) and persistent positiveantipho spholipid antibodies (IgM or IgG CARTER>40 MPL/GPL, IgM or IgG anti-b2GPI anti bodies ora lupus anticoagu lant). International consensusguidel zara for APS suggest waiting at least 12weeks before retesting to confirm antibod ypersistence. The [facility] llaborating Clinics immunologicalcl assification criteria for [facility] lupuserythemato renetta (SLE) include testing for isotypeIgA, [...] (test code = Performing AYESHA) Lab EZ [employer] [place] [address] [place] [address] Dawson Portillo MD, PhD, VIC[facility] HospitalPhosphatidylserine Abs (IgG, IgM)2020-01-09 13:03:00 Test Item Value Reference Interpretation Comments Range PHOSPHATIDYLSERINE <10 U/mL <10 Nega tive 10-20 AB(IGG) (test code = Equivoc al- Found in small 4650) percentage of t he healthy population; may be reactive >20 Positive - Risk factor for thrombosis and loss PHOSPHATIDYLSERINE <25 U/mL The antip hospholipid AB (IGM) (test code antibody syndrome (APS) lisa = [id number]) clinical-pathol ogic correlation indio t includesa clinical event (e.g. thrombosis, pre gnancyloss, thrombocytopeni a) and persistent positiveantipho spholipid antibodies (IgM or IgG CARTER>40 MPL/GPL, IgM or IgG anti-b2GPI anti bodies ora lupus anticoagu lant). International consensusguidel zara for APS suggest waiting at least 12weeks before retesting to confirm antibod ypersistence. [facility] immunologicalcl assification criteria for [facility] lupuserythemato renetta (SLE) include testing for isotypeIgA, [...] = Performing AYESHA) Lab EZ [facility] [address] [place] [address] Dawson Portillo MD, PhD, [facility] Culture - Routine (Right Venipuncture) 2020-01-09 00:00:00 Test Item Value Reference Range Interpretation Comments Result (test code = No growth in 5 days 6463-4) [facility] 2020-01-09 00:00:00 Test Item Value Reference Range Interpretation Comments Result (test code = No growth in 5 days 6463-4) [facility] Culture - Routine (Right Venipuncture) 2020-01-09 00:00:00 Test Item Value Reference Range Interpretation Comments Result (test code = No growth in 5 days 6463-4) [facility] Culture - Routine (Right Venipuncture) 2020-01-09 00:00:00 Test Item Value Reference Range Interpretation Comments Result (test code = No growth in 5 days 6463-4) [facility] - Routine (Right Venipuncture) 2020-01-09 00:00:00 Test Item Value Reference Range Interpretation Comments Result (test code = No growth in 5 days 6463-4) [facility] HospitalBLO[facility] [id number] 00:00:00 Test Item Value Reference Range Interpretation Comments CULTURE (BEAKER) (test No growth in 5 days code = 1095) BLOOD [id number] 00:00:00 Test Item Value Reference Range Interpretation Comments CULTURE (BEAKER) (test No growth in 5 days code = 1095) ECG 12 [id number] 08:23:08Interface, External Ris In 01/08/2020 8:23 AM CDTVentricular Rate 51 BPMAtrial Rate 51 BPMP-R Interval 184 msQRS Duration 100 msQ-T Interval 454 msQTC Calculation(Bazett) 418 msP [place] 6 degreesR Axis1 degreesT [place] 226 degreesSinus bradycardiaLeft ventricular hypertrophy with repolarization abnormalityAbnormal ECGWhen compared with ECG of 06-JAN-2020 20:37,No significant change was foundConfirmed by MD JOYCE JOSEPH P ([id number]) on 01/08/2020 8:23:02 [facility] 12 [id number] 08:23:08 Interface, External Ris In 01/08/2020 8:23 AM CDTVentricular Rate 51 BPMAtrial Rate 51 BPMP-R Interval 184 msQRS Duration 100 msQ-T Interval 454 msQTC Calculation(Bazett) 418 msP [place] 6 degreesR Axis1 degreesT [place] 226 degreesSinus bradycardiaLeft ventricular hypertrophy with repolarization abnormalityAbnormal ECGWhen compared with ECG of 06-JAN-2020 20:37,No significant change was foundConfirmed by MD JOYCE JOSEPH P ([id number]) on 01/08/2020 8:23:02 [facility] [id number] 08:23:08Interface, External Ris In 01/08/2020 8:23 AM CDTVentricular Rate 51 BPMAtrial Rate 51 BPMP-R Interval 184 msQRS Duration 100 msQ-T Interval 454 msQTC Calculation(Bazett) 418 msP [place] 6 degreesR Axis1 degreesT [place] 226 degreesSinus bradycardiaLeft ventricular hypertrophy with repolarization abnormalityAbnormal ECGWhen compared with ECG of 06-Jan-2020:37,No significant change was foundConfirmed by MD JOYCE JOSEPH P ([id number]) on 01/08/2020 8:23:02 [facility] lead 2020-01-08 08:23:08Interface, External Ris In 01/08/2020 8:23 AM CDTVentricular Rate 51 BPMAtrial Rate 51 BPMP-R Interval 184 msQRS Duration 100 msQ-T Interval 454 msQTC Calculation(Bazett) 418 msP [place] 6 degreesR Axis1 degreesT [place] 226 degreesSinus bradycardiaLeft ventricular hypertrophy with repolarization abnormalityAbnormal ECGWhen compared with ECG of 06-Jan-2020:37,No significant change was foundConfirmed by MD JOYCE JOSEPH P ([id number]) on 01/08/2020 8:23:02 [facility] [id number] 08:23:08 Interface, External Ris In 01/08/2020 8:23 AM CDTVentricular Rate 51 BPMAtrial Rate 51 BPMP-R Interval 184 msQRS Duration 100 msQ-T Interval 454 msQTC Calculation(Bazett) 418 msP [place] 6 degreesR Axis1 degreesT [place] 226 degreesSinus bradycardiaLeft ventricular hypertrophy with repolarization abnormalityAbnormal ECGWhen compared with ECG of 06-Jan-2020:37,No significant change was foundConfirmed by MD JOYCE JOSEPH P ([id number]) on 01/08/2020 8:23:02 [facility]iumAnt[facility] [id number] 13:01:00 Test Item Value Reference Range Interpretation Comments Antithrombin III (test code = 41058-8) 91.0 % 80-120 Lab Interpretation (test code = Normal 46781-2) [facility] HospitalAntithrombin [id number] 13:01:00 Test Item Value Reference Range Interpretation Comments Antithrombin III (test code = 73062-4) 91.0 % 80-120 Lab Interpretation (test code = Normal 40395-4) [facility] HospitalAntithrombin [id number] 13:01:00 Test Item Value Reference Range Interpretation Comments Antithrombin III (test code = 47516-5) 91.0 % 80-120 Lab Interpretation (test code = Normal 68936-9) [facility] HospitalAntith[facility] [id number] 13:01:00 Test Item Value Reference Range Interpretation Comments Antithrombin III (test code = 32342-5) 91.0 % 80-120 Lab Interpretation (test code = Normal 18038-4) [facility] HospitalAnt[facility] [id number] 13:01:00 Test Item Value Reference Range Interpretation Comments Antithrombin III (test code = 62621-5) 91.0 % 80-120 Lab Interpretation (test code = Normal 68162-8) [facility] HospitalAntith[facility] [id number] 13:01:00 Test Item Value Reference Range Interpretation Comments Antithrombin III (test code = 15121-8) 91.0 % 80-120 Lab Interpretation (test code = Normal 48862-1) [facility] HospitalANTITHROMBIN [id number] 13:01:00 Test Item Value Reference Range Interpretation Comments ANTITHROMBIN III ACTIVITY (BEAKER) 91.0 % 80.0-120.0 (test code = 711) 2D Echo W/Doppler(CW/PW/Color)2020-01-06 10:40:51Ejection FractionSLEH ECHO HEARTLAB MKCKESSON CPACSInterface, External Ris In - 01/06/2020 10:41 AM C DTTransthoracic Echocardiography Report (TTE) Demographics Patient Name VANNESSA HOLT Date of Study 01/06/2020 CONALTY Gender Female Visit Number [id number] Race Unknown Number [id number] Number Date of 1965 Referring Physician BOLIVAR Cardoza Age 54year(s) [employer] Honorio Lockwood RDCS Interpreting Kenneth Marks MD [...] m/s E/A Ratio: 0.88 Peak Gradient: 1.26 mmHgDeceleration Time: 245 msec MV José Miguel. Peak: [...] CO: 4.09 l/min LVOT CI: 2.28 l/min/m^2[facility]/Doppler(CW/PW/Color)2020-01-06 10:40:51Ejection FractionSLEH ECHO HEARTLAB GRACE CPACSInterface, External Ris In - 01/06/2020 10:41 AM CDTTransthoracic Echocardiography Report (TTE) Demographics Patient Name VANNESSA HOLT Date of Study 01/06/2020 DARINELALTY Gender Female Visit Number [id number] Race Unknown Room Number 926 Number Date of 1965 Referring Physician BOLIVAR Cardoza Age 54year(s) [employer] Honorio Lockwood [facility] Interpreting Kenneth Marks MD Physician Procedure Typeof [...] Atrium RA size is normal. Atrial Normal interatrialseptum by available views. Septum IV saline contrast [...] E' Lateral Velocity: 0.1 m/s E/E': 5.74 AorticValve Peak Velocity: 0.9 m/s Mean Velocity: 0.63 [...] CO: 4.09 l/min LVOT CI: 2.28 l/min/m^2[facility] W/Doppler(CW/PW/Color)2020-01-06 10:40:51Ejection FractionSLEH ECHO HEARTLAB MKCKESSON CPACSInterface, External Ris In - 01/06/2020 10:41 AM CDTTransthoracic Echocardiography Report (TTE) Demographics Patient Name VANNESSA HOLT Date of Study 01/06/2020 CONALTY Gender Female Visit Number [id number] Race Unknown Room Number 926 Number Date of 1965 Referring Physician BOLIVAR Cardoza Age 54year(s) [employer] Honorio Lockwood RDCS Interpreting Kenneth Marks MD [...] CO: 4.09 l/min LVOT CI: 2.28 l/min/m^2[facility] W/Doppler(CW/PW/Color)2020-01-06 10:40:51Ejection FractionSLEH ECHO HEARTLAB MKCKESSON CPACSInterface, External Ris In - 01/06/2020 10:41 AM CDTTransthoracic Echocardiography Report (TTE) Demographics Patient Name VANNESSA HOLT Date of Study 01/06/2020 CONALTY Gender Female Visit Number [id number] Race Unknown Room Number 926 Number Date of 1965 Referring Physician BOLIVAR Cardoza Age 54 year(s) [employer] Honorio Lockwood [facility] Interpreting Kenneth Marks MD Physician Procedure Type [...] m/s E/A Ratio: 0.88 Peak Gradient: 1.26 mmHgDeceleration Time: 245 msec MV José Miguel. Peak: [...] CO: 4.09 l/min LVOT CI: 2.28 l/min/m^2[facility] W/Doppler(CW/PW/Color)2020-01-06 10:40:51Ejection FractionSLEH ECHO HEARTLAB MKCKESSON CPACSInterface, External Ris In - 01/06/2020 10:41 AM CDTTransthoracic Echocardiography Report (TTE) Demographics Patient Name VANNESSA HOLT Date of Study 01/06/2020 CONALTY Gender Female Visit Number [id number] Race Unknown Room Number 926 Number Date of 1965 Referring Physician BOLIVAR Cardoza Age 54year(s) [employer] Honorio Lockwood RDCS Interpreting Kenneth Marks MD [...] leaflet thickening. Trace mitral regurgitation. Tricuspid A traceof tricuspid regurgitation. Valve Unable to estimate peak [...] CO: 4.09 l/min LVOT CI: 2.28 l/min/m^2[facility]/Doppler(CW/PW/Color)2020-01-06 10:40:51Ejection FractionSLEH ECHO HEARTLAB MKCKESSON CPACSInterface, External Ris In - 01/06/2020 10:41 AM CDTTransthoracic Echocardiography Report (TTE) Demographics Patient Name VANNESSA HOLT Date of Study 01/06/2020 CONALTY Gender Female Visit Number [id number] Race Unknown Room Number 926 Number Date of 1965 Referring Physician BOLIVAR Cardoza Age 54 year(s) [employer] Honorio Lockwood [facility] Interpreting Kenneth Marks MD Physician Procedure Type [...] m/s E/A Ratio: 0.88 Peak Gradient: 1.26 mmHgDeceleration Time: 245 msec MV José Miguel. Peak: [...] LVOT CO: 4.09 l/min LVOT CI: 2.28 l/min/m^2CS[facility] CenterHemoglobin [id number] 10:15:00 Test Item Value Reference Range Interpretation Comments Hemoglobin A1C (test code = 4548-4) 5.3 % 4.3-6.1 Lab Interpretation (test code = Normal 31309-1) [facility] [id number] 10:15:00 Test Item Value Reference Range Interpretation Comments Hemoglobin A1C (test code = 4548-4) 5.3 % 4.3-6.1 Lab Interpretation (test code = Normal 94270-7) [facility] [id number] 10:15:00 Test Item Value Reference Range Interpretation Comments Hemoglobin A1C (test code = 4548-4) 5.3 % 4.3-6.1 Lab Interpretation (test code = Normal 94706-5) [facility] [id number] 10:15:00 Test Item Value Reference Range Interpretation Comments Hemoglobin A1C (test code = 4548-4) 5.3 % 4.3-6.1 Lab Interpretation (test code = Normal 71448-0) [facility] [id number] 10:15:00 Test Item Value Reference Range Interpretation Comments Hemoglobin A1C (test code = 4548-4) 5.3 % 4.3-6.1 Lab Interpretation (test code = Normal 08663-4) [facility] [id number] 10:15:00 Test Item Value Reference Range Interpretation Comments Hemoglobin A1C (test code = 4548-4) 5.3 % 4.3-6.1 Lab Interpretation (test code = Normal 95348-0) [facility]HEMOGLOBIN [id number] 10:15:00 Test Item Value Reference Range Interpretation Comments HEMOGLOBIN A1C (BEAKER) (test code = 5.3 % 4.3-6.1 368) Vitamin B12 and [id number] 22:45:00 Test Item Value Reference Range Interpretation Comments Vitamin B12 (test 633 pg/mL 213-816 code = 2132-9) Folate (test code = 32.50 ng/mL See_Comment [Automa gill 2284-8) message] The system which generated this result transmit gill reference range : >=7.00. The reference range was not used to interpret this result as normal/abnormal . AYESHA (test code = AYESHA) Scrap Carrier ID - FSE Lab Interpretation Normal (test code = 16344-8) [facility] HospitalVitamin B12 and [id number] 22:45:00 Test Item Value Reference Range Interpretation Comments Vitamin B12 (test 633 pg/mL 213-816 code = 2132-9) Folate (test code = 32.50 ng/mL See_Comment [Automa gill 2284-8) message] The system which generated this result transmit gill reference range : >=7.00. The reference range was not used to interpret this result as normal/abnormal . AYESHA (test code = AYESHA) Scrap Carrier ID - FSE Lab Interpretation Normal (test code = 53111-3) [facility]Vit[facility] B12 and [id number] 22:45:00 Test Item Value Reference Range Interpretation Comments Vitamin B12 (test 633 pg/mL 213-816 code = 2132-9) Folate (test code = 32.50 ng/mL See_Comment [Automa gill 2284-8) message] The system which generated this result transmit gill reference range : >=7.00. The reference range was not used to interpret this result as normal/abnormal . AYESHA (test code = AYESHA) Scrap Carrier ID - FSE Lab Interpretation Normal (test code = 68416-4) [facility] HospitalVit[facility] B12 and [id number] 22:45:00 Test Item Value Reference Range Interpretation Comments Vitamin B12 (test 633 pg/mL 213-816 code = 2132-9) Folate (test code = 32.50 ng/mL See_Comment [Automa gill 2284-8) message] The system which generated this result transmit gill reference range : >=7.00. The reference range was not used to interpret this result as normal/abnormal . AYESHA (test code = AYESHA) Scrap Carrier ID - FSE Lab Interpretation Normal (test code = 18447-5) [facility] and [id number] 22:45:00 Test Item Value Reference Range Interpretation Comments Vitamin B12 (test 633 pg/mL 213-816 code = 2132-9) Folate (test code = 32.50 ng/mL See_Comment [Automa gill 2284-8) message] The system which generated this result transmit gill reference range : >=7.00. The reference range was not used to interpret this result as normal/abnormal . AYESHA (test code = AYESHA) Scrap Carrier ID - FSE Lab Interpretation Normal (test code = 11033-8) [facility] and [id number] 22:45:00 Test Item Value Reference Range Interpretation Comments Vitamin B12 (test 633 pg/mL 213-816 code = 2132-9) Folate (test code = 32.50 ng/mL See_Comment [Automa gill 2284-8) message] The system which generated this result transmit gill reference range : >=7.00. The reference range was not used to interpret this result as normal/abnormal . AYESHA (test code = AYESHA) Scrap Carrier ID - FSE Lab Interpretation Normal (test code = 98166-1) [facility] HospitalVITAMIN B12 AND [id number] 22:45:00 Test Item Value Reference Range Interpretation Comments VITAMIN B12 (BEAKER) (test code = 633 pg/mL 213-816 774) FOLATE (BEAKER) (test code = 362) 32.50 ng/mL >=7.00 Scrap Carrier ID - FSECT, CAROTID, [id number] 21:05:00Unlisted Reason for Exam - Click Yes [...] and neck. Signed: Leidy Enamorado Verified Date/Time: 0 01/05/2020 21:05:35 [facility] CTANGIO [id number] 21:05:00Unlisted Reason for Exam - Click Yes [...] and neck. Signed: Leidy Enamorado Verified Date/Time: 0 01/05/2020 21:05:35 [facility] [id number] 21:05:00Interface, External Ris In - 01/05/2020 9:07 [...] Leidy Enamorado MDReport Verified Date/Time: 01/05/2020 21:05:35 [facility] [id number] 21:05:00Interface, External Ris In - 01/05/2020 9:07 [...] Signed: Leidy Enamorado Verified Date/Time: 01/05/2020 21:05:35 [facility] [id number] 21:05:00Interface, External Ris In - 01/05/2020 9:07 [...] Signed: Leidy Enamorado Verified Date/Time: 01/05/2020 21:05:35 [facility] [id number] 21:05:00Interface, External Ris In - 01/05/2020 9:07 [...] Leidy Enamorado MDReport Verified Date/Time: 01/05/2020 21:05:35 [facility] [id number] 21:05:00Interface, External Ris In - 01/05/2020 9:07 [...] Signed: Leidy Enamorado Verified Date/Time: 01/05/2020 21:05:35 [facility] [id number] 21:05:00Interface, External Ris In - 01/05/2020 9:07 [...] Signed: Leidy Enamorado Verified Date/Time: 01/05/2020 21:05:35 [facility] [id number] 21:05:00Interface, External Ris In - 01/05/2020 9:07 [...] Signed: Leidy Enamorado Verified Date/Time: 01/05/2020 21:05:35 [facility] [id number] 21:05:00Interface, External Ris In - 01/05/2020 9:07 [...] Leidy Enamorado MDReport Verified Date/Time: 01/05/2020 21:05:35 [facility] [id number] 21:05:00Interface, External Ris In - 01/05/2020 9:07 [...] the head and neck. Signed: Leidy Enamorado MDRepchula Verified Date/Time: 01/05/2020 21:05:35 [facility] [id number] 21:05:00Interface, External Ris In - 01/05/2020 9:07 [...] Signed: Leidy Enamorado Verified Date/Time: 01/05/2020 21:05:35 [facility] [id number] 21:05:00Interface, External Ris In - 01/05/2020 9:07 [...] Signed: Leidy Enamorado Verified Date/Time: 01/05/2020 21:05:35 [facility] [id number] 21:05:00Interface, External Ris In - 01/05/2020 9:07 [...] Leidy Enamorado MDReport Verified Date/Time: 01/05/2020 21:05:35 [facility]/Free T4 If [id number] 19:10:00 Test Item Value Reference Range Interpretation Comments TSH (test code = 1.813 See_Comment [Automated 43123-2) message] The system which generated this result transmit gill reference range : 0.350 - 4.940 uIU/mL. The reference range was not used to interpret this result as normal/abnormal . AYESHA (test code = AYESHA) Scrap Carrier ID - BS Lab Interpretation Normal (test code = 12181-5) [facility]/Free T4 If [id number] 19:10:00 Test Item Value Reference Range Interpretation Comments TSH (test code = 1.813 See_Comment [Automated 39679-6) message] The system which generated this result transmit gill reference range : 0.350 - 4.940 uIU/mL. The reference range was not used to interpret this result as normal/abnormal . AYESHA (test code = AYESHA) Scrap Carrier ID - BS Lab Interpretation Normal (test code = 72552-9) [facility]/Free T4 If [id number] 19:10:00 Test Item Value Reference Range Interpretation Comments TSH (test code = 1.813 See_Comment [Automated 57586-2) message] The system which generated this result transmit gill reference range : 0.350 - 4.940 uIU/mL. The reference range was not used to interpret this result as normal/abnormal . AYESHA (test code = AYESHA) Scrap Carrier ID - BS Lab Interpretation Normal (test code = 81588-2) [facility]/Free T4 If [id number] 19:10:00 Test Item Value Reference Range Interpretation Comments TSH (test code = 1.813 See_Comment [Automated 58378-7) message] The system which generated this result transmit gill reference range : 0.350 - 4.940 uIU/mL. The reference range was not used to interpret this result as normal/abnormal . AYESHA (test code = AYESHA) Scrap Carrier ID - BS Lab Interpretation Normal (test code = 11439-4) [facility]Free T4 If [id number] 19:10:00 Test Item Value Reference Range Interpretation Comments TSH (test code = 1.813 See_Comment [Automated 78063-1) message] The system which generated this result transmit gill reference range : 0.350 - 4.940 uIU/mL. The reference range was not used to interpret this result as normal/abnormal . AYESHA (test code = AYESHA) Scrap Carrier ID - BS Lab Interpretation Normal (test code = 38886-6) [facility]Free T4 If [id number] 19:10:00 Test Item Value Reference Range Interpretation Comments TSH (test code = 1.813 See_Comment [Automated 63451-6) message] The system which generated this result transmit gill reference range : 0.350 - 4.940 uIU/mL. The reference range was not used to interpret this result as normal/abnormal . AYESHA (test code = AYESHA) Scrap Carrier ID - BS Lab Interpretation Normal (test code = 85679-1) [facility]/FREE T4 IF [id number] 19:10:00 Test Item Value Reference Range Interpretation Comments THYROID STIMULATING HORMONE 1.813 uIU/mL 0.350-4.940 (BEAKER) (test code = 772) Scrap Carrier ID - BSLipid [id number] 15:53:00 Test Item Value Reference Range Interpretation Comments Triglycerides (test 129 mg/dL Specimen code = 2571-8) slightly hemolyzed Cholesterol (test 201 mg/dL Specimen code = 2093-3) slightly hemolyzed HDL (test code = 52 mg/dL 5-9) LDL Calculated (test 123 mg/dL code = 37373-2) AYESHA (test code = Triglyceride AYESHA) Reference Range: Low Risk <150 Borderline 150-199 High Risk 200-499 Very High Risk >=500 Cholesterol Reference Range: Low Risk <200 Borderline 200-239 High Risk >240 HDL Cholesterol Reference Range: Low Risk >=60 High Risk <40 LDL Cholesterol Reference Range: Optimal <100 Near Optimal 100-129 Borderline 130-159 High 160-189 Very High >=190 Scrap Carrier ID - BS [facility] HospitalHepatic function [id number] 15:53:00 Test Item Value Reference Range Interpretation Comments Protein, Total (test 7.4 See_Comment Specime n slightly code = 2885-2) hemolyzed [Automated message] The system which generated this result transmit gill reference range : 6.0 - 8.3 gm/dL . The reference range was not u sed to interpret th is result as normal/abnormal . Albumin (test code = 4.1 g/dL 3.5-5 Specime n slightly 04726-7) hemolyzed Total Bilirubin (test 1.0 mg/dL 0.2-1.2 [...] 1742-6) hemolyzed AYESHA (test code = AYESHA) Scrap Carrier ID - BS Lab Interpretation Normal (test code = 38963-1) [facility] HospitalLipid [id number] 15:53:00 Test Item Value Reference Range Interpretation Comments Triglycerides (test 129 mg/dL Specimen code = 2571-8) slightly hemolyzed Cholesterol (test 201 mg/dL Specimen code = 2093-3) slightly hemolyzed HDL (test code = 52 mg/dL 2084-9) LDL Calculated (test 123 mg/dL code = 98157-8) AYESHA (test code = Triglyceride AYESHA) Reference Range: Low Risk <150 Borderline 150-199 High Risk 200-499 Very High Risk >=500 Cholesterol Reference Range: Low Risk <200 Borderline 200-239 High Risk >240 HDL Cholesterol Reference Range: Low Risk >=60 High Risk <40 LDL Cholesterol Reference Range: Optimal <100 Near Optimal 100-129 Borderline 130-159 High 160-189 Very High >=190 Scrap Carrier ID - BS [facility] HospitalHep[facility] function [id number] 15:53:00 Test Item Value Reference Range Interpretation Comments Protein, Total (test 7.4 See_Comment Specime n slightly code = 2885-2) hemolyzed [Automated message] The system which generated this result transmit gill reference range : 6.0 - 8.3 gm/dL . The reference range was not u sed to interpret th is result as normal/abnormal . Albumin (test code = 4.1 g/dL 3.5-5 Specime n slightly 01095-3) hemolyzed Total Bilirubin (test 1.0 mg/dL 0.2-1.2 [...] 1742-6) hemolyzed AYESHA (test code = AYESHA) Scrap Carrier ID - BS Lab Interpretation Normal (test code = 94088-9) [facility] HospitalLipid [id number] 15:53:00 Test Item Value Reference Range Interpretation Comments Triglycerides (test 129 mg/dL Specimen code = 2571-8) slightly hemolyzed Cholesterol (test 201 mg/dL Specimen code = 2093-3) slightly hemolyzed HDL (test code = 52 mg/dL 2084-9) LDL Calculated (test 123 mg/dL code = 92923-4) AYESHA (test code = Triglyceride AYESHA) Reference Range: Low Risk <150 Borderline 150-199 High Risk 200-499 Very High Risk >=500 Cholesterol Reference Range: Low Risk <200 Borderline 200-239 High Risk >240 HDL Cholesterol Reference Range: Low Risk >=60 High Risk <40 LDL Cholesterol Reference Range: Optimal <100 Near Optimal 100-129 Borderline 130-159 High 160-189 Very High >=190 Scrap Carrier ID - BS [facility] HospitalHep[facility] function [id number] 15:53:00 Test Item Value Reference Range Interpretation Comments Protein, Total (test 7.4 See_Comment Specime n slightly code = 2885-2) hemolyzed [Automated message] The system which generated this result transmit gill reference range : 6.0 - 8.3 gm/dL . The reference range was not u sed to interpret th is result as normal/abnormal . Albumin (test code = 4.1 g/dL 3.5-5 Specime n slightly 13974-5) hemolyzed Total Bilirubin (test 1.0 mg/dL 0.2-1.2 [...] 1742-6) hemolyzed AYESHA (test code = AYESHA) Scrap Carrier ID - BS Lab Interpretation Normal (test code = 16754-4) [facility] Hospital[facility] [id number] 15:53:00 Test Item Value Reference Range Interpretation Comments Triglycerides (test 129 mg/dL Specimen code = 2571-8) slightly hemolyzed Cholesterol (test 201 mg/dL Specimen code = 2093-3) slightly hemolyzed HDL (test code = 52 mg/dL 2084-9) LDL Calculated (test 123 mg/dL code = 11420-7) AYESHA (test code = Triglyceride AYESHA) Reference Range: Low Risk <150 Borderline 150-199 High Risk 200-499 Very High Risk >=500 Cholesterol Reference Range: Low Risk <200 Borderline 200-239 High Risk >240 HDL Cholesterol Reference Range: Low Risk >=60 High Risk <40 LDL Cholesterol Reference Range: Optimal <100 Near Optimal 100-129 Borderline 130-159 High 160-189 Very High >=190 Scrap Carrier ID - BS [facility] HospitalHep[facility] function [id number] 15:53:00 Test Item Value Reference Range Interpretation Comments Protein, Total (test 7.4 See_Comment Specime n slightly code = 2885-2) hemolyzed [Automated message] The system which generated this result transmit gill reference range : 6.0 - 8.3 gm/dL . The reference range was not u sed to interpret th is result as normal/abnormal . Albumin (test code = 4.1 g/dL 3.5-5 Specime n slightly 88533-5) hemolyzed Total Bilirubin (test 1.0 mg/dL 0.2-1.2 [...] 1742-6) hemolyzed AYESHA (test code = AYESHA) Scrap Carrier ID - BS Lab Interpretation Normal (test code = 38744-5) [facility] HospitalLip[facility] [id number] 15:53:00 Test Item Value Reference Range Interpretation Comments Triglycerides (test 129 mg/dL Specimen code = 2571-8) slightly hemolyzed Cholesterol (test 201 mg/dL Specimen code = 2093-3) slightly hemolyzed HDL (test code = 52 mg/dL 2084-9) LDL Calculated (test 123 mg/dL code = 00671-9) AYESHA (test code = Triglyceride AYESHA) Reference Range: Low Risk <150 Borderline 150-199 High Risk 200-499 Very High Risk >=500 Cholesterol Reference Range: Low Risk <200 Borderline 200-239 High Risk >240 HDL Cholesterol Reference Range: Low Risk >=60 High Risk <40 LDL Cholesterol Reference Range: Optimal <100 Near Optimal 100-129 Borderline 130-159 High 160-189 Very High >=190 Scrap Carrier ID - BS [facility] HospitalHep[facility] function [id number] 15:53:00 Test Item Value Reference Range Interpretation Comments Protein, Total (test 7.4 See_Comment Specime n slightly code = 2885-2) hemolyzed [Automated message] The system which generated this result transmit gill reference range : 6.0 - 8.3 gm/dL . The reference range was not u sed to interpret th is result as normal/abnormal . Albumin (test code = 4.1 g/dL 3.5-5 Specime n slightly 83989-5) hemolyzed Total Bilirubin (test 1.0 mg/dL 0.2-1.2 [...] 1742-6) hemolyzed AYESHA (test code = AYESHA) Scrap Carrier ID - BS Lab Interpretation Normal (test code = 89695-7) [facility] HospitalLipid [id number] 15:53:00 Test Item Value Reference Range Interpretation Comments Triglycerides (test 129 mg/dL Specimen code = 2571-8) slightly hemolyzed Cholesterol (test 201 mg/dL Specimen code = 2093-3) slightly hemolyzed HDL (test code = 52 mg/dL 2084-12) LDL Calculated (test 123 mg/dL code = 08552-6) AYESHA (test code = Triglyceride AYESHA) Reference Range: Low Risk <150 Borderline 150-199 High Risk 200-499 Very High Risk >=500 Cholesterol Reference Range: Low Risk <200 Borderline 200-239 High Risk >240 HDL Cholesterol Reference Range: Low Risk >=60 High Risk <40 LDL Cholesterol Reference Range: Optimal <100 Near Optimal 100-129 Borderline 130-159 High 160-189 Very High >=190 Scrap Carrier ID - BS [facility] HospitalHep[facility] function [id number] 15:53:00 Test Item Value Reference Range Interpretation Comments Protein, Total (test 7.4 See_Comment Specime n slightly code = 2885-2) hemolyzed [Automated message] The system which generated this result transmit gill reference range : 6.0 - 8.3 gm/dL . The reference range was not u sed to interpret th is result as normal/abnormal . Albumin (test code = 4.1 g/dL 3.5-5 Specime n slightly 62694-4) hemolyzed Total Bilirubin (test 1.0 mg/dL 0.2-1.2 [...] 1742-6) hemolyzed AYESHA (test code = AYESHA) Scrap Carrier ID - BS Lab Interpretation Normal (test code = 47298-6) [facility] HospitalLIPID [id number] 15:53:00 Test Item Value Reference Range Interpretation [...] Borderline 130-159 High 160-189 Very High >=190 Scrap Carrier ID - BSHEPATIC FUNCTION [id number] 15:53:00 Test Item Value Reference Range Interpretation [...] Specimen slightly (test code = 347) hemolyzed Scrap Carrier ID - BSEEG AWAKE AND [id number] 22:22:00Reason for exam:->seizureDATE OF TEST: 01/04/2020 DATE OF REPORT: 01/04/2020 ACC: [id number] Start time: 3:27 PM on 01/04/20 Stop time: 3:47 PM on 01/04/20 ICD-10: R56.9 CPT Code: 91348 HISTORY: 54 y/o RH F with PMHof [...] and admixed faster frequencies over the left zemuqf-elvwyp-bjtciar-parietal area. Moderate voltage 3 - 5 Hz [...] NSR. IMPRESSION: This is an abnormal awake EEGdue to higher amplitudes and faster frequencies over the left hemisphere in association with a focusof slow (theta) activity in that region. CLINICAL CORRELATION: The higher amplitudes and admixed faster frequencies over the left unwtly-cwnwws-hkcadeg-parietal area may represent a breach rhythm due to the previous craniotomy and the focus of slow activity suggests the presence of an underlying structural pathology. There are no definite epileptiform discharges or electrographic seizures. Zen Townsend M.D. Epilepsy Fellow I have reviewed the electroencephalogram and this report and agree with its interpretation. Caprice Fisher M.D. Epilepsy Attending EEG AWAKE AND [id number] 22:22:00 Interface, External Ris In - 01/04/2020 10:22 PM CDTDATE OF TEST: 01/04/2020 DATE OF REPORT: 01/04/2020 ACC: [id number] Start time: 3:27 PM on 01/04/20 Stop time: 3:47 PM on 01/04/20 ICD-10:R56.9 CPT Code: 78898 HISTORY: 54 y/o RH F with PMH [...] and admixed faster frequencies over the left dxtxhz-qlvkor-gexksqi-parietal area. Moderate voltage 3 - 5 Hz [...] and admixed faster frequencies over the left nlofqr-prkeko-lpqghji- parietal area may represent a breach rhythm due to the previous craniotomy and the focus of slow activity suggests the presence of an underlying structural pathology. There are no definite epileptiform discharges or electrographic seizures. Zen Townsend M.D. Epilepsy Fellow I have reviewed the el ectroencephalogram and this report and agree with its interpretation. Caprice Fisher M.D. Epilepsy Attending [facility] AWAKE AND [id number] 22:22:00Interface, External Ris In - 01/04/2020 10:22 PM CDTDATE OF TEST: 01/04/2020 DATE OF REPORT: 01/04/2020 ACC: [id number] Start time: 3:27 PM on 01/04/20 Stop time: 3:47 PM on 01/04/20 ICD-10:R56.9 CPT Code: 03651 HISTORY: 54 y/o RH F with PMH [...] and admixed faster frequencies over the left jxjauq-lohecl-ymdjdvx-parietal area. Moderate voltage 3 - 5 Hz [...] and admixed faster frequencies over the left mjabub-clkvei-zsvbhlf- parietal area may represent a breach rhythm due to the previous craniotomy and the focus of slow activity suggests the presence of an underlying structural pathology. There are no definite epileptiform discharges or electrographic seizures. Zen Townsend M.D. Epilepsy Fellow I have reviewed the el ectroencephalogram and this report and agree with its interpretation. Caprice Fisher M.D. Epilepsy Attending [facility] CenterEE AWAKE AND [id number] 22:22:00Interface, External Ris In - 01/04/2020 10:22 PM CDTDATE OF TEST: 01/04/2020 DATE OF REPORT: 01/04/2020 ACC: [id number] Start time: 3:27 PM on 01/04/20 Stop time: 3:47 PM on 01/04/20 ICD-10:R56.9 CPT Code: 45702 HISTORY: 54 y/o RH F with PMH [...] and admixed faster frequencies over the left fmcdhv-qxexjh-tcejxlb-parietal area. Moderate voltage 3 - 5 Hz [...] and admixed faster frequencies over the left xawvpr-mekhcu-dnhltiv- parietal area may represent a breach rhythm due to the previous craniotomy and the focus of slow activity suggests the presence of an underlying structural pathology. There are no definite epileptiform discharges or electrographic seizures. Zen Townsend M.D. Epilepsy Fellow I have reviewed the el ectroencephalogram and this report and agree with its interpretation. Caprice Fisher M.D. Epilepsy Attending [facility]EE[facility] AWAKE AND [id number] 22:22:00Interface, External Ris In - 01/04/2020 10:22 PM CDTDATE OF TEST: 01/04/2020 DATE OF REPORT: 01/04/2020 ACC: [id number] EE-1115 Start time: 3:27 PM on 01/04/20 Stop time: 3:47 PM on 01/04/20 ICD-10:R56.9 CPT Code: 26885 HISTORY: 54 y/o RH F with PMH [...] and admixed faster frequencies over the left seocpa-lxlnyq-dzfoneu-parietal area. Moderate voltage 3 - 5 Hz [...] and admixed faster frequencies over the left wgyqxj-jlxutk-uldtnit- parietal area may represent a breach rhythm due to the previous craniotomy and the focus of slow activity suggests the presence of an underlying structural pathology. There are no definite epileptiform discharges or electrographic seizures. Zen Townsend M.D. Epilepsy Fellow I have reviewed the el ectroencephalogram and this report and agree with its interpretation. Caprice Fisher M.D. Epilepsy Attending [facility] [id number] 22:22:00Interface, External Ris In - 01/04/2020 10:22 PM CDTDATE OF TEST: 01/04/2020 DATE OF REPORT: 01/04/2020 ACC: [id number] Start time: 3:27 PM on 01/04/20 Stop time: 3:47 PM on 01/04/20 ICD-10:R56.9 CPT Code: 36177 HISTORY: 54 y/o RH F with PMH [...] and admixed faster frequencies over the left akzrxy-qpacpq-ksqljkg-parietal area. Moderate voltage 3 - 5 Hz [...] and admixed faster frequencies over the left wntrkm-jytgcj-zdxiruz- parietal area may represent a breach rhythm due to the previous craniotomy and the focus of slow activity suggests the presence of an underlying structural pathology. There are no definite epileptiform discharges or electrographic seizures. Zen Townsend M.D. Epilepsy Fellow I have reviewed the el ectroencephalogram and this report and agree with its interpretation. Caprice Fisher M.D. Epilepsy Attending [facility] [id number] 22:22:00Interface, External Ris In - 01/04/2020 10:22 PM CDTDATE OF TEST: 01/04/2020 DATE OF REPORT: 01/04/2020 ACC: [id number] Start time: 3:27 PM on 01/04/20 Stop time: 3:47 PM on 01/04/20 ICD-10:R56.9 CPT Code: 17611 HISTORY: 54 y/o RH F with PMH [...] and admixed faster frequencies over the left fhgfce-mmscpc-mksnbou-parietal area. Moderate voltage 3 - 5 Hz [...] and admixed faster frequencies over the left uzkoeo-pbezxa-ngoppet- parietal area may represent a breach rhythm due to the previous craniotomy and the focus of slow activity suggests the presence of an underlying structural pathology. There are no definite epileptiform discharges or electrographic seizures. Zen Townsend M.D. Epilepsy Fellow I have reviewed the el ectroencephalogram and this report and agree with its interpretation. Caprice Fisher M.D. Epilepsy Attending [facility], [facility]RAIN, [id number] 20:55:00 Unlisted Reason for Exam - Click [...] the left frontal lobe. 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 COMPARISON: MRI 07/06/2017 FINDINGS: Intracranial: There is a new punctate focus of restricted diffusion within the left precentral gyrus. No acute intracranial hemorrhage. No hydrocephalus. Visualized intracranial flow voids are of normal course and caliber. Stable postoperative changes of left frontal craniotomy and underlying resection cavity with surrounding encephalomalacia. Interval decrease in foci of enhancement along the posterior lateralresection margins. 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 Increased left frontal convexity dural thickening and enhancement is likely granulation tissue reactive to surgery. Sinuses: No evidence of sinusitis. Mastoids are clear. Orbits: Globes are intact.Calvarium \\T\\ scalp: Left frontal craniotomy without offset. 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 Signed: Leidy Enamorado Verified Date/Time: 01/04/2020 20:55:02 [facility] [id number] 20:55:00Interface, External Ris In - 01/04/2020 8:57 [...] in the left frontal lobe. Signed: Leidy Enamoradoort Verified Date/Time: 01/04/2020 20:55:02 [facility] without [id number] 20:55:00Interface, External Ris In - 01/04/2020 8:57 [...] Leidy Enamorado MDReport Verified Date/Time: 01/04/2020 20:55:02 [facility] without [id number] 20:55:00Interface, External Ris In - 01/04/2020 8:57 [...] Signed: Leidy Enamorado Verified Date/Time: 01/04/2020 20:55:02 [facility] without [id number] 20:55:00Interface, External Ris In - 01/04/2020 8:57 [...] Signed: Leidy Enamorado Verified Date/Time: 01/04/2020 20:55:02 [facility] CenterBasi metabolic [id number] 09:56:00 Test Item Value Reference Range Interpretation Comments Sodium (test code 139 meq/L 136-145 = 2951-2) Potassium (test 3.6 meq/L 3.5-5.1 code = 2823-3) Chloride (test 104 meq/L 98-107 code = 2075-0) CO2 (test code = 26 meq/L -2027-12) BUN (test code = 17 mg/dL 11-15 3094-0) Creatinine (test 0.73 mg/dL 0.57-1.25 code = 2160-0) Glucose (test code 104 mg/dL 70-105 = 2345-7) Calcium (test code 9.2 mg/dL 8.4-10.2 = 28480-6) EGFR (test code = 83 mL/min/1.[place] [address]-0) NOT ACCURATE CREATININE CLEARANCE IN PREDICTING GLOMERULAR FILTRATION RATE . ESTIMATED GFR I S NOT APPLICABLE FOR DIALYSIS PATIEN TSEulalio AYESHA (test code = Scrap Carrier ID - APR AYESHA) CSpecimen slightly icteric [facility] metabolic [id number] 09:56:00 Test Item Value Reference Range Interpretation [...] Calcium (test code 9.2 mg/dL 8.4-10.2 = 63988-1) EGFR (test code = 83 mL/min/1.[place] [address]-7) NOT ACCURATE CREATININE CLEARANCE IN PREDICTING GLOMERULAR FILTRATION RATE . ESTIMATED GFR I S NOT APPLICABLE FOR DIALYSIS PATIEN TSEulalio AYESHA (test code = Scrap Carrier ID - APR AYESHA) CSpecimen slightly icteric [facility] metabolic [id number] 09:56:00 Test Item Value Reference Range Interpretation Comments Sodium (test code 139 meq/L 136-145 = 2951-2) Potassium (test 3.6 meq/L 3.5-5.1 code = 2823-3) Chloride (test 104 meq/L 98-107 code = 2075-0) CO2 (test code = 26 meq/L -2027-12) BUN (test code = 17 mg/dL 11-15 3094-0) Creatinine (test 0.73 mg/dL 0.57-1.25 code = 2160-0) Glucose (test code 104 mg/dL 70-105 = 2345-7) Calcium (test code 9.2 mg/dL 8.4-10.2 = 22484-4) EGFR (test code = 83 mL/min/1.[place] [address]-1) NOT ACCURATE CREATININE CLEARANCE IN PREDICTING GLOMERULAR FILTRATION RATE . ESTIMATED GFR I S NOT APPLICABLE FOR DIALYSIS PATIEN TSEulalio AYESHA (test code = Scrap Carrier ID - APR AYESHA) CSpecimen slightly icteric [facility] metabolic [id number] 09:56:00 Test Item Value Reference Range Interpretation [...] Calcium (test code 9.2 mg/dL 8.4-10.2 = 33741-4) EGFR (test code = 83 mL/min/1.[place] [address]-3) NOT ACCURATE CREATININE CLEARANCE IN PREDICTING GLOMERULAR FILTRATION RATE . ESTIMATED GFR I S NOT APPLICABLE FOR DIALYSIS PATIEN TSEulalio AYESHA (test code = Scrap Carrier ID - APR AYESHA) CSpecimen slightly icteric [facility] metabolic [id number] 09:56:00 Test Item Value Reference Range Interpretation Comments Sodium (test code 139 meq/L 136-145 = 2951-2) Potassium (test 3.6 meq/L 3.5-5.1 code = 2823-3) Chloride (test 104 meq/L 98-107 code = 2075-0) CO2 (test code = 26 meq/L -2027-12) BUN (test code = 17 mg/dL 11-15 3094-0) Creatinine (test 0.73 mg/dL 0.57-1.25 code = 2160-0) Glucose (test code 104 mg/dL 70-105 = 2345-7) Calcium (test code 9.2 mg/dL 8.4-10.2 = 00509-1) EGFR (test code = 83 mL/min/1.[place] [address]-8) NOT ACCURATE CREATININE CLEARANCE IN PREDICTING GLOMERULAR FILTRATION RATE . ESTIMATED GFR I S NOT APPLICABLE FOR DIALYSIS PATIEN TSEulalio AYESHA (test code = Scrap Carrier ID - APR AYESHA) CSpecimen slightly icteric [facility] metabolic [id number] 09:56:00 Test Item Value Reference Range Interpretation [...] Calcium (test code 9.2 mg/dL 8.4-10.2 = 36031-5) EGFR (test code = 83 mL/min/1.[place] [address]-7) NOT ACCURATE CREATININE CLEARANCE IN PREDICTING GLOMERULAR FILTRATION RATE . ESTIMATED GFR I S NOT APPLICABLE FOR DIALYSIS PATIEN TSEulalio AYESHA (test code = Scrap Carrier ID - APR AYESHA) CSpecimen slightly icteric [facility] METABOLIC [id number] 09:56:00 Test Item Value Reference Range Interpretation [...] S NOT APPLICABLE FOR DIALYSIS PATIEN TS. Scrap Carrier ID - ULYSSES CSpecimen slightly ictericCBC with platelet count + automated [id number] 06:53:00 Test Item Value Reference Range Interpretation Comments WBC (test code = 6690-2) 8.8 See_Comment [A utomated message] The system [employer] generated this result transmitted ref erence range: 3.5 - 10 .5 K/L. The refe rence range was not u sed to interpret this result as normal/abnor mal. RBC (test code = 789-8) 4.04 See_Comment [Au tomated message] The system [employer] generated this result transmitted ref erence range: 3.93 - 5 .22 M/L. The refe rence range was not u sed to interpret this result as normal/abnor mal. MCHC (test code = 786-4) 33.3 See_Comment [A utomated message] The system [employer] generated this result transmitted ref erence range: [...] See_Comment [Aut omated message] 777-3) The system [employer] generated this result transmitted ref erence range: 150 - 45 0 K/CU MM. The referen ce range was not u sed to interpret this result as normal/abnor mal. MPV (test code = 10.7 fL 9.4-12.3 07183-7) nRBC (test code = 413) 0 See_Comment [Aut omated message] The system [employer] generated this result transmitted ref erence range: [...] See_Comment [Aut omated message] 670) The system [employer] generated this result transmitted ref erence range: 1.56 - 6 .13 K/L. The refe rence range was not u sed to interpret this result as normal/abnor mal. # Lymphs (test code = 2.83 See_Comment [Auto mated message] 414) The system [employer] generated this result transmitted ref erence range: 1.18 - 3 .74 K/L. The refe rence range was not u sed to interpret this result as normal/abnor mal. # Monos (test code = 0.91 See_Comment H [Autom ated message] 415) The system [employer] generated this result transmitted ref erence range: 0.24 - 0 .36 K/L. The refe rence range was not u sed to interpret this result as normal/abnor mal. # Eos (test code = 416) 0.05 See_Comment [Au tomated message] The system [employer] generated this result transmitted ref erence range: 0.04 - 0 .36 K/L. The refe rence range was not u sed to interpret this result as normal/abnor mal. # Baso (test code = 417) 0.02 See_Comment [A utomated message] The system [employer] generated this result transmitted ref erence range: 0.01 - 0 .08 K/L. The refe rence range was not u sed to interpret this result as normal/abnor mal. Immature 0 % 0-1 Granulocytes-Relative (test code = 2801) Lab Interpretation (test Abnormal code = 08847-4) [facility] with platelet count + automated [id number] 06:53:00 Test Item Value Reference Range Interpretation Comments WBC (test code = 6690-2) 8.8 See_Comment [A utomated message] The system [employer] generated this result transmitted ref erence range: 3.5 - 10 .5 K/L. The refe rence range was not u sed to interpret this result as normal/abnor mal. RBC (test code = 789-8) 4.04 See_Comment [Au tomated message] The system [employer] generated this result transmitted ref erence range: 3.93 - 5 .22 M/L. The refe rence range was not u sed to interpret this result as normal/abnor mal. MCHC (test code = 786-4) 33.3 See_Comment [A utomated message] The system [employer] generated this result transmitted ref erence range: [...] code = 194 See_Comment [Aut omated message] 317-3) The system [employer] generated this result transmitted ref erence range: 150 - 45 0 K/CU MM. The referen ce range was not u sed to interpret this result as normal/abnor mal. MPV (test code = 10.7 fL 9.4-12.3 32635-5) nRBC (test code = 413) 0 See_Comment [Aut omated message] The system [employer] generated this result transmitted ref erence range: [...] See_Comment [Aut omated message] 670) The system [employer] generated this result transmitted ref erence range: 1.56 - 6 .13 K/L. The refe rence range was not u sed to interpret this result as normal/abnor mal. # Lymphs (test code = 2.83 See_Comment [Auto mated message] 414) The system [employer] generated this result transmitted ref erence range: 1.18 - 3 .74 K/L. The refe rence range was not u sed to interpret this result as normal/abnor mal. # Monos (test code = 0.91 See_Comment H [Autom ated message] 415) The system [employer] generated this result transmitted ref erence range: 0.24 - 0 .36 K/L. The refe rence range was not u sed to interpret this result as normal/abnor mal. # Eos (test code = 416) 0.05 See_Comment [Au tomated message] The system [employer] generated this result transmitted ref erence range: 0.04 - 0 .36 K/L. The refe rence range was not u sed to interpret this result as normal/abnor mal. # Baso (test code = 417) 0.02 See_Comment [A utomated message] The system [employer] generated this result transmitted ref erence range: 0.01 - 0 .08 K/L. The refe rence range was not u sed to interpret this result as normal/abnor mal. Immature 0 % 0-1 Granulocytes-Relative (test code = 2801) Lab Interpretation (test Abnormal code = 93173-1) [facility] with platelet count + automated [id number] 06:53:00 Test Item Value Reference Range Interpretation Comments WBC (test code = 6690-2) 8.8 See_Comment [A utomated message] The system [employer] generated this result transmitted ref erence range: 3.5 - 10 .5 K/L. The refe rence range was not u sed to interpret this result as normal/abnor mal. RBC (test code = 789-8) 4.04 See_Comment [Au tomated message] The system [employer] generated this result transmitted ref erence range: 3.93 - 5 .22 M/L. The refe rence range was not u sed to interpret this result as normal/abnor mal. MCHC (test code = 786-4) 33.3 See_Comment [A utomated message] The system [employer] generated this result transmitted ref erence range: [...] See_Comment [Aut omated message] 777-3) The system [employer] generated this result transmitted ref erence range: 150 - 45 0 K/CU MM. The referen ce range was not u sed to interpret this result as normal/abnor mal. MPV (test code = 10.7 fL 9.4-12.3 17058-5) nRBC (test code = 413) 0 See_Comment [Aut omated message] The system [employer] generated this result transmitted ref erence range: [...] See_Comment [Aut omated message] 670) The system [employer] generated this result transmitted ref erence range: 1.56 - 6 .13 K/L. The refe rence range was not u sed to interpret this result as normal/abnor mal. # Lymphs (test code = 2.83 See_Comment [Auto mated message] 414) The system [employer] generated this result transmitted ref erence range: 1.18 - 3 .74 K/L. The refe rence range was not u sed to interpret this result as normal/abnor mal. # Monos (test code = 0.91 See_Comment H [Autom ated message] 415) The system [employer] generated this result transmitted ref erence range: 0.24 - 0 .36 K/L. The refe rence range was not u sed to interpret this result as normal/abnor mal. # Eos (test code = 416) 0.05 See_Comment [Au tomated message] The system [employer] generated this result transmitted ref erence range: 0.04 - 0 .36 K/L. The refe rence range was not u sed to interpret this result as normal/abnor mal. # Baso (test code = 417) 0.02 See_Comment [A utomated message] The system [employer] generated this result transmitted ref erence range: 0.01 - 0 .08 K/L. The refe rence range was not u sed to interpret this result as normal/abnor mal. Immature 0 % 0-1 Granulocytes-Relative (test code = 2801) Lab Interpretation (test Abnormal code = 97764-1) [facility] with platelet count + automated [id number] 06:53:00 Test Item Value Reference Range Interpretation Comments WBC (test code = 6690-2) 8.8 See_Comment [A utomated message] The system [employer] generated this result transmitted ref erence range: 3.5 - 10 .5 K/L. The refe rence range was not u sed to interpret this result as normal/abnor mal. RBC (test code = 789-8) 4.04 See_Comment [Au tomated message] The system [employer] generated this result transmitted ref erence range: 3.93 - 5 .22 M/L. The refe rence range was not u sed to interpret this result as normal/abnor mal. MCHC (test code = 786-4) 33.3 See_Comment [A utomated message] The system [employer] generated this result transmitted ref erence range: [...] See_Comment [Aut omated message] 777-3) The system [employer] generated this result transmitted ref erence range: 150 - 45 0 K/CU MM. The referen ce range was not u sed to interpret this result as normal/abnor mal. MPV (test code = 10.7 fL 9.4-12.3 88730-2) nRBC (test code = 413) 0 See_Comment [Aut omated message] The system [employer] generated this result transmitted ref erence range: [...] See_Comment [Aut omated message] 670) The system [employer] generated this result transmitted ref erence range: 1.56 - 6 .13 K/L. The refe rence range was not u sed to interpret this result as normal/abnor mal. # Lymphs (test code = 2.83 See_Comment [Auto mated message] 414) The system [employer] generated this result transmitted ref erence range: 1.18 - 3 .74 K/L. The refe rence range was not u sed to interpret this result as normal/abnor mal. # Monos (test code = 0.91 See_Comment H [Autom ated message] 415) The system [employer] generated this result transmitted ref erence range: 0.24 - 0 .36 K/L. The refe rence range was not u sed to interpret this result as normal/abnor mal. # Eos (test code = 416) 0.05 See_Comment [Au tomated message] The system [employer] generated this result transmitted ref erence range: 0.04 - 0 .36 K/L. The refe rence range was not u sed to interpret this result as normal/abnor mal. # Baso (test code = 417) 0.02 See_Comment [A utomated message] The system [employer] generated this result transmitted ref erence range: 0.01 - 0 .08 K/L. The refe rence range was not u sed to interpret this result as normal/abnor mal. Immature 0 % 0-1 Granulocytes-Relative (test code = 2801) Lab Interpretation (test Abnormal code = 14592-3) [facility] with platelet count + automated [id number] 06:53:00 Test Item Value Reference Range Interpretation Comments WBC (test code = 6690-2) 8.8 See_Comment [A utomated message] The system [employer] generated this result transmitted ref erence range: 3.5 - 10 .5 K/L. The refe rence range was not u sed to interpret this result as normal/abnor mal. RBC (test code = 789-8) 4.04 See_Comment [Au tomated message] The system [employer] generated this result transmitted ref erence range: 3.93 - 5 .22 M/L. The refe rence range was not u sed to interpret this result as normal/abnor mal. MCHC (test code = 786-4) 33.3 See_Comment [A utomated message] The system [employer] generated this result transmitted ref erence range: [...] See_Comment [Aut omated message] 777-3) The system [employer] generated this result transmitted ref erence range: 150 - 45 0 K/CU MM. The referen ce range was not u sed to interpret this result as normal/abnor mal. MPV (test code = 10.7 fL 9.4-12.3 99231-8) nRBC (test code = 413) 0 See_Comment [Aut omated message] The system [employer] generated this result transmitted ref erence range: [...] See_Comment [Aut omated message] 670) The system [employer] generated this result transmitted ref erence range: 1.56 - 6 .13 K/L. The refe rence range was not u sed to interpret this result as normal/abnor mal. # Lymphs (test code = 2.83 See_Comment [Auto mated message] 414) The system [employer] generated this result transmitted ref erence range: 1.18 - 3 .74 K/L. The refe rence range was not u sed to interpret this result as normal/abnor mal. # Monos (test code = 0.91 See_Comment H [Autom ated message] 415) The system [employer] generated this result transmitted ref erence range: 0.24 - 0 .36 K/L. The refe rence range was not u sed to interpret this result as normal/abnor mal. # Eos (test code = 416) 0.05 See_Comment [Au tomated message] The system [employer] generated this result transmitted ref erence range: 0.04 - 0 .36 K/L. The refe rence range was not u sed to interpret this result as normal/abnor mal. # Baso (test code = 417) 0.02 See_Comment [A utomated message] The system [employer] generated this result transmitted ref erence range: 0.01 - 0 .08 K/L. The refe rence range was not u sed to interpret this result as normal/abnor mal. Immature 0 % 0-1 Granulocytes-Relative (test code = 2801) Lab Interpretation (test Abnormal code = 17044-4) [facility] with platelet count + automated [id number] 06:53:00 Test Item Value Reference Range Interpretation Comments WBC (test code = 6690-2) 8.8 See_Comment [A utomated message] The system [employer] generated this result transmitted ref erence range: 3.5 - 10 .5 K/L. The refe rence range was not u sed to interpret this result as normal/abnor mal. RBC (test code = 789-8) 4.04 See_Comment [Au tomated message] The system [employer] generated this result transmitted ref erence range: 3.93 - 5 .22 M/L. The refe rence range was not u sed to interpret this result as normal/abnor mal. MCHC (test code = 786-4) 33.3 See_Comment [A utomated message] The system [employer] generated this result transmitted ref erence range: [...] See_Comment [Aut omated message] 777-3) The system [employer] generated this result transmitted ref erence range: 150 - 45 0 K/CU MM. The referen ce range was not u sed to interpret this result as normal/abnor mal. MPV (test code = 10.7 fL 9.4-12.3 51287-7) nRBC (test code = 413) 0 See_Comment [Aut omated message] The system [employer] generated this result transmitted ref erence range: [...] See_Comment [Aut omated message] 670) The system [employer] generated this result transmitted ref erence range: 1.56 - 6 .13 K/L. The refe rence range was not u sed to interpret this result as normal/abnor mal. # Lymphs (test code = 2.83 See_Comment [Auto mated message] 414) The system [employer] generated this result transmitted ref erence range: 1.18 - 3 .74 K/L. The refe rence range was not u sed to interpret this result as normal/abnor mal. # Monos (test code = 0.91 See_Comment H [Autom ated message] 415) The system [employer] generated this result transmitted ref erence range: 0.24 - 0 .36 K/L. The refe rence range was not u sed to interpret this result as normal/abnor mal. # Eos (test code = 416) 0.05 See_Comment [Au tomated message] The system [employer] generated this result transmitted ref erence range: 0.04 - 0 .36 K/L. The refe rence range was not u sed to interpret this result as normal/abnor mal. # Baso (test code = 417) 0.02 See_Comment [A utomated message] The system [employer] generated this result transmitted ref erence range: 0.01 - 0 .08 K/L. The refe rence range was not u sed to interpret this result as normal/abnor mal. Immature 0 % 0-1 Granulocytes-Relative (test code = 2801) Lab Interpretation (test Abnormal code = 62563-0) [facility] W/PLT COUNT & AUTO [id number] 06:53:00 Test Item Value Reference Range Interpretation [...] = 2801) Urinalysis w/Microscopic + Reflex to [id number] 22:54:00 Test Item Value Reference Range Interpretation Comments Color, UA (test Yellow code = 5778-6) Clarity, UA (test Clear code = 5767-9) Specific [place], 1.017 1.001-1.035 UA (test code = 5811-5) pH, UA (test code 8.0 5.0-8.0 = 5803-2) Protein, UA (test Negative Negative code = 05393-2) Glucose, UA (test Negative Negative code = 365) Ketones, UA (test Negative Negative code = 2514-8) Bilirubin, UA Negative Negative (test code = 74211-5) Blood, UA (test Negative Negative code = 14732-2) Nitrite, UA (test Negative Negative code = 5802-4) Leukocytes, UA Negative Negative (test code = 5799-2) Urobilinogen, UA 0.2 mg/dL 0.2-1 (test code = 02049-4) RBC, UA (test 1 See_Comment [Automated me ssage] code = 73737-6) The system [facility] generated this result transmit gill reference range : /HPF. The refer ence range was not u sed to interpret th is result as normal/abnormal . WBC, UA (test 7 See_Comment [Automated me ssage] code = 5821-4) The system [facility] generated this result transmit gill reference range : /HPF. The refer ence range was not u sed to interpret th is result as normal/abnormal . Mucus (test code Rare = 8247-9) Squam Epithel, UA 1 See_Comment [Automate d message] (test code = The system [employer] 16828-5) generated this result transmit gill reference range : /HPF. The refer ence range was not u sed to interpret th is result as normal/abnormal . Specimen Source (test code = 2795) AYESHA (test code = Scrap Carrier ID - AYESHA) [auto]Scrap Carrier ID - tech [facility] Reflex to Culture 2020-01-03 22:54:00 Test Item Value Reference Range Interpretation Comments Color, UA (test Yellow code = 5778-6) Clarity, UA (test Clear code = 5767-9) Specific [place], 1.017 1.001-1.035 UA (test code = 5811-5) pH, UA (test code 8.0 5.0-8.0 = 5803-2) Protein, UA (test Negative Negative code = 44795-5) Glucose, UA (test Negative Negative code = 365) Ketones, UA (test Negative Negative code = 2514-8) Bilirubin, UA Negative Negative (test code = 82860-0) Blood, UA (test Negative Negative code = 87589-4) Nitrite, UA (test Negative Negative code = 5802-4) Leukocytes, UA Negative Negative (test code = 5799-2) Urobilinogen, UA 0.2 mg/dL 0.2-1 (test code = 04590-9) RBC, UA (test 1 See_Comment [Automated me ssage] code = 84868-4) The system [facility] generated this result transmit gill reference range : /HPF. The refer ence range was not u sed to interpret th is result as normal/abnormal . WBC, UA (test 7 See_Comment [Automated me ssage] code = 5821-4) The system [facility] generated this result transmit gill reference range : /HPF. The refer ence range was not u sed to interpret th is result as normal/abnormal . Mucus (test code Rare = 8247-9) Squam Epithel, UA 1 See_Comment [Automate d message] (test code = The system [facility] [employer] 17740-2) generated this result transmit gill reference range : /HPF. The refer ence range was not u sed to interpret th is result as normal/abnormal . Specimen Source (test code = 2795) AYESHA (test code = Scrap Carrier ID - AYESHA) [auto]Scrap Carrier ID - tech [facility]scopic + Reflex to Culture 2020-01-03 22:54:00 Test Item Value Reference Range Interpretation Comments Color, UA (test Yellow code = 5778-6) Clarity, UA (test Clear code = 5767-9) Specific [place], 1.017 1.001-1.035 UA (test code = 5811-5) pH, UA (test code 8.0 5.0-8.0 = 5803-2) Protein, UA (test Negative Negative code = 83382-9) Glucose, UA (test Negative Negative code = 365) Ketones, UA (test Negative Negative code = 2514-8) Bilirubin, UA Negative Negative (test code = 28977-4) Blood, UA (test Negative Negative code = 06552-1) Nitrite, UA (test Negative Negative code = 5802-4) Leukocytes, UA Negative Negative (test code = 5799-2) Urobilinogen, UA 0.2 mg/dL 0.2-1 (test code = 21051-7) RBC, UA (test 1 See_Comment [Automated me ssage] code = 34682-1) The system [facility] generated this result transmit gill reference range : /HPF. The refer ence range was not u sed to interpret th is result as normal/abnormal . WBC, UA (test 7 See_Comment [Automated me ssage] code = 5821-4) The system [facility] generated this result transmit gill reference range : /HPF. The refer ence range was not u sed to interpret th is result as normal/abnormal . Mucus (test code Rare = 8247-9) Squam Epithel, UA 1 See_Comment [Automate d message] (test code = The system [facility] 30001-7) generated this result transmit gill reference range : /HPF. The refer ence range was not u sed to interpret th is result as normal/abnormal . Specimen Source (test code = 2795) AYESHA (test code = Scrap Carrier ID - AYESHA) [auto]Scrap Carrier ID - tech [facility]scopic + Reflex to Culture 2020-01-03 22:54:00 Test Item Value Reference Range Interpretation Comments Color, UA (test Yellow code = 5778-6) Clarity, UA (test Clear code = 5767-9) Specific [place], 1.017 1.001-1.035 UA (test code = 5811-5) pH, UA (test code 8.0 5.0-8.0 = 5803-2) Protein, UA (test Negative Negative code = 38180-0) Glucose, UA (test Negative Negative code = 365) Ketones, UA (test Negative Negative code = 2514-8) Bilirubin, UA Negative Negative (test code = 79037-1) Blood, UA (test Negative Negative code = 32449-4) Nitrite, UA (test Negative Negative code = 5802-4) Leukocytes, UA Negative Negative (test code = 5799-2) Urobilinogen, UA 0.2 mg/dL 0.2-1 (test code = 75577-2) RBC, UA (test 1 See_Comment [Automated me ssage] code = 18630-9) The system [facility] generated this result transmit gill reference range : /HPF. The refer ence range was not u sed to interpret th is result as normal/abnormal . WBC, UA (test 7 See_Comment [Automated me ssage] code = 5821-4) The system [facility] generated this result transmit gill reference range : /HPF. The refer ence range was not u sed to interpret th is result as normal/abnormal . Mucus (test code Rare = 8247-9) Squam Epithel, UA 1 See_Comment [Automate d message] (test code = The system [facility] h 408[address]-0) generated this result transmit gill reference range : /HPF. The refer ence range was not u sed to interpret th is result as normal/abnormal . Specimen Source (test code = 2795) AYESHA (test code = Scrap Carrier ID - AYESHA) [auto]Scrap Carrier ID - tech [facility]/Microscopic + Reflex to Culture 2020-01-03 22:54:00 Test Item Value Reference Range Interpretation Comments Color, UA (test Yellow code = 5778-6) Clarity, UA (test Clear code = 5767-9) Specific [place], 1.017 1.001-1.035 UA (test code = 5811-5) pH, UA (test code 8.0 5.0-8.0 = 5803-2) Protein, UA (test Negative Negative code = 53899-7) Glucose, UA (test Negative Negative code = 365) Ketones, UA (test Negative Negative code = 2514-8) Bilirubin, UA Negative Negative (test code = 00789-5) Blood, UA (test Negative Negative code = 65402-6) Nitrite, UA (test Negative Negative code = 5802-4) Leukocytes, UA Negative Negative (test code = 5799-2) Urobilinogen, UA 0.2 mg/dL 0.2-1 (test code = 44240-4) RBC, UA (test 1 See_Comment [Automated me ssage] code = 21626-0) The system [facility] generated this result transmit gill reference range : /HPF. The refer ence range was not u sed to interpret th is result as normal/abnormal . WBC, UA (test 7 See_Comment [Automated me ssage] code = 5821-4) The system [facility] generated this result transmit gill reference range : /HPF. The refer ence range was not u sed to interpret th is result as normal/abnormal . Mucus (test code Rare = 8247-9) Squam Epithel, UA 1 See_Comment [Automate d message] (test code = The system [facility] 00781-8) generated this result transmit gill reference range : /HPF. The refer ence range was not u sed to interpret th is result as normal/abnormal . Specimen Source (test code = 2795) AYESHA (test code = Scrap Carrier ID - AYESHA) [auto]Scrap Carrier ID - tech [facility]UR[facility]/ REFLEX URINE [id number] 22:54:00 Test Item Value Reference Range Interpretation [...] = 516) SOURCE(BEAKER) (test code = 2795) Scrap Carrier ID - [auto]Scrap Carrier ID - techSARS-CoV2/RT-PCR (Symptomatic ONLY) 2020-01-03 21:57:00 Test Item Value Reference Range Interpretation Comments SARS-COV2/RT-PCR Negative Not Detected, (test code = Negative, See 80628-2) external report for linked test SARS-COV-2 [facility] PERFORMING LAB (test code = 40767-3) AYESHA (test code = Negative results do [...] of the Act. Fact Sheet for Healthcare Providers:https://www.Hair Scynce/Documents/Xper t%20Xpress%20SARS%20CoV- 2/Fact%20Sheets/302-3802 %25MRJC-YCM-7%20HEALTHCA RE%20PROVIDERS%20FACT%20 SHEET.pdf Fact Sheet for Healthcare Patients:https://www.Stupil/Documents/Xpert %20Xpress%20SARS%20CoV-2 /Fact%20Sheets/302-3801% 75NSWC-KQK-0%20PATIENT%2 0FACT%20SHEET.pdf Performing Laboratory:[facility] [place] [address] [facility]pt[facility] ONLY)2020-01-03 21:57:00 Test Item Value Reference Range Interpretation Comments SARS-COV2/RT-PCR Negative Not Detected, (test code = Negative, See 85007-3) external report for linked test SARS-COV-2 [facility] PERFORMING LAB (test code = 00526-7) AYESHA (test code = Negative results do [...] of the Act. Fact Sheet for Healthcare Providers:https://www.Hair Scynce/Documents/Xper t%20Xpress%20SARS%20CoV- 2/Fact%20Sheets/302-3802 %98GBQL-GFO-0%20HEALTHCA RE%20PROVIDERS%20FACT%20 SHEET.pdf Fact Sheet for Healthcare Patients:https://www.Stupil/Documents/Xpert %20Xpress%20SARS%20CoV-2 /Fact%20Sheets/3023801% 89MKFQ-IIM-2%20PATIENT%2 0FACT%20SHEET.pdf Performing Laboratory:[facility] [place], [place] [address] [place], [place] [address]ARS-CoV2/RT-PCR (Symptomatic ONLY)2020-01-03 21:57:00 Test Item Value Reference Range Interpretation Comments SARS-COV2/RT-PCR Negative Not Detected, (test code = Negative, See 96310-6) external report for linked test SARS-COV-2 [facility] PERFORMING LAB (test code = 46598-7) AYESHA (test code = Negative results do [...] of the Act. Fact Sheet for Healthcare Providers:https://www.Hair Scynce/Documents/Xper t%20Xpress%20SARS%20CoV- 2/Fact%20Sheets/3802 %51CTIH-MBL-6%20HEALTHCA RE%20PROVIDERS%20FACT%20 SHEET.pdf Fact Sheet for Healthcare Patients:https://www.Stupil/Documents/Xpert %20Xpress%20SARS%20CoV-2 /Fact%20Sheets/3023801% 09SISD-ZMD-7%20PATIENT%2 0FACT%20SHEET.pdf Performing Laboratory:[facility] [place] [address] [facility] (Symptomatic ONLY)2020-01-03 21:57:00 Test Item Value Reference Range Interpretation Comments SARS-COV2/RT-PCR Negative Not Detected, (test code = Negative, See 95018-6) external report for linked test SARS-COV-2 [facility] PERFORMING LAB (test code = 33813-8) AYESHA (test code = Negative results do [...] of the Act. Fact Sheet for Healthcare Providers:https://www.Hair Scynce/Documents/Xper t%20Xpress%20SARS%20CoV- 2/Fact%20Sheets/380 %25DLEW-SWN-1%20HEALTHCA RE%20PROVIDERS%20FACT%20 SHEET.pdf Fact Sheet for Healthcare Patients:https://www.Stupil/Documents/Xpert %20Xpress%20SARS%20CoV-2 /Fact%20Sheets/302-3801% 41XRHX-TUG-4%20PATIENT%2 0FACT%20SHEET.pdf Performing Laboratory:[facility] [place] [address] [facility] (Symptomatic ONLY)2020-01-03 21:57:00 Test Item Value Reference Range Interpretation Comments SARS-COV2/RT-PCR Negative Not Detected, (test code = Negative, See 36742-6) external report for linked test SARS-COV-2 [facility] PERFORMING LAB (test code = 15968-4) AYESHA (test code = Negative results do [...] of the Act. Fact Sheet for Healthcare Providers:https://www.Subtext pheid.card.io/Documents/Xper t%20Xpress%20SARS%20CoV- 2/Fact%20Sheets/302-3802 %50XJJQ-ZPG-7%20HEALTHCA RE%20PROVIDERS%20FACT%20 SHEET.pdf Fact Sheet for Healthcare Patients:https://www.[employer] heid.card.io/Documents/Xpert %20Xpress%20SARS%20CoV-2 /Fact%20Sheets/302-3801% 22CAWK-HBZ-9%20PATIENT%2 0FACT%20SHEET.pdf Performing Laboratory:[facility] [place] [address] [facility])2020-01-03 21:57:00 Test Item Value Reference Range Interpretation Comments SARS-COV2/RT-PCR (test code Negative Not Detected, Negative, = 2560623) See external report for linked test SARS-COV-[address] [facility] (test code = 0068047) Negative results do not preclude SARS-CoV-2 infection [...] of the Act.Fact Sheet for Healthcare Pro viders:https://www.Hab Housing.card.io/Documents/Xpert%20Xpress%20SARS%20CoV-2/Fact%20Sh eets/3023802%24QRNA-WAZ-1%20HEALTHCARE%20PROVIDERS%20FACT%20SHEET.pdfFact Sheet for Healthcare Patients:https://www.Branch2.card.io/Documents/Xpert%20Xpress%20SARS%20CoV-2/Fact%20Sheets/3023801%20SARS-COV -2%20PATIENT%20FACT%20SHEET.pdfPerforming Laboratory:[facility], [place] [address]PI/[id number] 20:57:00 Test Item Value Reference Interpretation Comments [...] valves. Lab Interpretation Normal (test code = 64865-6) [facility][id number] 20:57:00 Test Item Value Reference Interpretation Comments [...] valves. Lab Interpretation Normal (test code = 74788-7) [facility]PT/[id number] 20:57:00 Test Item Value Reference Interpretation Comments [...] valves. Lab Interpretation Normal (test code = 51623-5) [facility]PT/[id number] 20:57:00 Test Item Value Reference Interpretation Comments [...] valves. Lab Interpretation Normal (test code = 98125-6) [facility]PT/[id number] 20:57:00 Test Item Value Reference Interpretation Comments [...] valves. Lab Interpretation Normal (test code = 94693-2) [facility] HospitalPROTHROMBIN TIME/[id number] 20:57:00 Test Item Value Reference Range Interpretation [...] for patients wiht mechanical heart valves.BASIC METABOLIC [id number] 20:35:00 Test Item Value Reference Range Interpretation [...] S NOT APPLICABLE FOR DIALYSIS PATIEN TS. Scrap Carrier ID - DBLactic acid, [id number] 20:31:00 Test Item Value Reference Range Interpretation Comments Lactate, Venous (test 1.60 mmol/L 0.5-2.2 Specim en code = 2872) markedly hemolyzed AYESHA (test code = AYESHA) Scrap Carrier ID - DB Lab Interpretation Normal (test code = 34648-8) [facility] HospitalL[facility] acid, [id number] 20:31:00 Test Item Value Reference Range Interpretation Comments Lactate, Venous (test 1.60 mmol/L 0.5-2.2 Specim en code = 2872) markedly hemolyzed AYESHA (test code = AYESHA) Scrap Carrier ID - DB Lab Interpretation Normal (test code = 45468-9) [facility], [id number] 20:31:00 Test Item Value Reference Range Interpretation Comments Lactate, Venous (test 1.60 mmol/L 0.5-2.2 Specim en code = 2872) markedly hemolyzed AYESHA (test code = AYESHA) Scrap Carrier ID - DB Lab Interpretation Normal (test code = 78239-4) [facility] HospitalLactic acid, [id number] 20:31:00 Test Item Value Reference Range Interpretation Comments Lactate, Venous (test 1.60 mmol/L 0.5-2.2 Specim en code = 2872) markedly hemolyzed AYESHA (test code = AYESHA) Scrap Carrier ID - DB Lab Interpretation Normal (test code = 56512-9) [facility] Hospitalctic [facility], [id number] 20:31:00 Test Item Value Reference Range Interpretation Comments Lactate, Venous (test 1.60 mmol/L 0.5-2.2 Specim en code = 2872) markedly hemolyzed AYESHA (test code = AYESHA) Scrap Carrier ID - DB Lab Interpretation Normal (test code = 66260-8) [facility], [id number] 20:31:00 Test Item Value Reference Range Interpretation Comments LACTATE BLOOD VENOUS 1.60 mmol/L 0.50-2.20 Specime n markedly (2) (BEAKER) (test hemolyzed code = 2872) Scrap Carrier ID - DBCBC W/PLT COUNT & AUTO [id number] 20:23:00 Test Item Value Reference Range Interpretation [...] = 2801) RAD, CHEST, 1 VIEW, NON [id number] 20:13:00Reason for exam:->feverShould this be performed at [...] 20:13:04 XR chest 1 view portable / [id number] 20:13:00Interface, External Ris In - 01/03/2020 8:15 PM CDTFINAL REPORT History: Fever. Comparison: 07/16/2017 Findings: A single view of the chest is submitted. The cardiomediastinal contours are unremarkable. There is no focal consolidation, pneumothorax, large pleural effusion or evidence of overt pulmonary edema. There is no acute bony abnormality. Impression: No acute abnormality. Signed: Simran Sullivan Verified Date/Time: 01/03/2020 20:13:04 [facility] / [id number] 20:13:00Interface, External Ris In - 01/03/2020 8:15 PM CDTFINAL REPORT History: Fever. Comparison: 07/16/2017 Findings: A single view of the chest is submitted. The cardiomediastinal contours are unremarkable. There is no focal consolidation, pneumothorax, large pleural effusion or evidence of overt pulmonary edema. There is no acute bony abnormality. Impression: No acute abnormality. Signed: Simran Sullivan Verified Date/Time: 01/03/2020 20:13:04 [facility] / [id number] 20:13:00Interface, External Ris In - 01/03/2020 8:15 PM CDTFINAL REPORT History: Fever. Comparison: 07/16/2017 Findings: A single view of the chest is submitted. The cardiomediastinal contours are unremarkable. There is no focal consolidation, pneumothorax, large pleural effusion or evidence of overt pulmonary edema. There is no acute bony abnormality. Impression: No acute abnormality. Signed: Simran Sullivan Verified Date/Time: 01/03/2020 20:13:04 [facility] / [id number] 20:13:00Interface, External Ris In - 01/03/2020 8:15 PM CDTFINAL REPORT History: Fever. Comparison: 07/16/2017 Findings: A single view of the chest is submitted. The cardiomediastinal contours are unremarkable. There is no focal consolidation, pneumothorax, large pleural effusion or evidence of overt pulmonary edema. There is no acute bony abnormality. Impression: No acute abnormality. Signed: Simran Sullivan Verified Date/Time: 01/03/2020 20:13:04 [facility] / [id number] 20:13:00Interface, External Ris In - 01/03/2020 8:15 PM CDTFINAL REPORT History: Fever. Comparison: 07/16/2017 Findings: A single view of the chest is submitted. The cardiomediastinal contours are unremarkable. There is no focal consolidation, pneumothorax, large pleural effusion or evidence of overt pulmonary edema. There is no acute bony abnormality. Impression: No acute abnormality. Signed: Simran Sullivan MDReport Verified Date/Time: 01/03/2020 20:13:04 [facility] 2018-08-[facility] 22:39:00 Test Item Value Reference Range Interpretation Comments eGFR (test code = eGFR) 92 [facility]2019-05-02 22:39:00 Test Item Value Reference Range Interpretation Comments Calcium Lvl (test code = Calcium Lvl) 8.9 8.5-10.5 [facility]2019-05-02 22:39:00 Test Item Value Reference Range Interpretation Comments Creatinine Lvl (test code = Creatinine 0.75 0.50-1.40 Lvl) [facility]2019-05-02 22:39:00 Test Item Value Reference Range Interpretation Comments Sodium Lvl (test code = Sodium Lvl) 142 135-145 [facility]2019-05-02 22:39:00 Test Item Value Reference Range Interpretation Comments BUN (test code = BUN) 15 7-22 [facility]2019-05-02 22:39:00 Test Item Value Reference Range Interpretation Comments Chloride Lvl (test code = Chloride Lvl) 109 95-109 [facility]2019-05-02 22:39:00 Test Item Value Reference Range Interpretation Comments CO2 (test code = CO2) 25 24-32 [facility]2019-05-02 22:39:00 Test Item Value Reference Range Interpretation Comments Glucose Lvl (test code = Glucose Lvl) 154 70-99 [facility]2019-05-02 22:39:00 Test Item Value Reference Range Interpretation Comments Potassium Lvl (test code = Potassium 4.0 3.5-5.1 Lvl) [facility]2019-05-02 22:39:00 Test Item Value Reference Range Interpretation Comments AGAP (test code = AGAP) 12.0 10.0-20.0 [id number] 22:39:00 Test Item Value Reference Range Interpretation Comments Hgb (test code = Hgb) 13.0 12.0-16.0 [facility] CypressDfspriaNXBWQPOKEV8537-43-05 22:39:00 Test Item Value Reference Range Interpretation Comments Hct (test code = Hct) 39.2 36.0-48.0 [facility] CypressBbkmnntSWQDUVXRWC1601-55-17 22:39:00 Test Item Value Reference Range Interpretation Comments MCV (test code = MCV) 98.3 80.0-98.0 [facility] CypressCfesajxSEPIZDSRAR2723-21-53 22:39:00 Test Item Value Reference Range Interpretation Comments MCH (test code = MCH) 32.7 pg 27.0-31.0 [facility] CypressUdfkdbaAFOPKTZPTH9757-45-63 22:39:00 Test Item Value Reference Range Interpretation Comments MCHC (test code = MCHC) 33.2 32.0-36.0 [facility] CypressDqtngpnXMGMBNIAZH5114-99-94 22:39:00 Test Item Value Reference Range Interpretation Comments RDW (test code = RDW) 13.2 11.5-14.5 [facility] CypressXnugwooAMUOOSJKSE0970-64-31 22:39:00 Test Item Value Reference Range Interpretation Comments MPV (test code = MPV) 8.2 7.4-10.4 [facility] CypressOjbabfvKCDLBKHJFL0790-86-42 22:39:00 Test Item Value Reference Range Interpretation Comments Platelet (test code = Platelet) 171 133-450 [facility] CypressMuokuyvGBHNPEFAWA8188-83-44 22:39:00 Test Item Value Reference Range Interpretation Comments WBC (test code = WBC) 5.9 3.7-10.4 [facility] CypressQerbfhaHAHPXXRNVS8486-44-83 22:39:00 Test Item Value Reference Range Interpretation Comments RBC (test code = RBC) 3.98 4.20-5.40 [facility] CypressGunnklvBTSQRZKKEJ0213-62-30 22:39:00 Test Item Value Reference Range Interpretation Comments PTT (test code = PTT) 25.2 s 22.9-35.8 [facility] Cypre[id number] 22:39:00 Test Item Value Reference Range Interpretation Comments PT (test code = PT) 12.7 s 12.0-14.7 [facility] CypressSfirkigWMNQAPZQWD7251-73-33 22:39:00 Test Item Value Reference Range Interpretation Comments INR (test code = INR) 0.97 1 0.85-1.17 [facility]UjpflcoTOCWUNUWHM7998-35-21 22:39:00 Test Item Value Reference Range Interpretation Comments Basophils (test code = Basophils) 0.1 <=1.0 [facility] CypressXcmsufeVATHANSKQY6632-26-40 22:39:00 Test Item Value Reference Range Interpretation Comments Monocytes # (test code = Monocytes #) 0.1 <=0.8 [facility] CypressWcsjzxeRBBYLHYVHQ0907-24-29 22:39:00 Test Item Value Reference Range Interpretation Comments Lymphocytes # (test code = Lymphocytes 0.7 1.0-5.5 #) [facility] CypressPdlmzybDLLJBOLDVJ2892-94-75 22:39:00 Test Item Value Reference Range Interpretation Comments Neutrophils # (test code = Neutrophils 5.1 1.5-8.1 #) [facility] CypressScvejrjGEHWPZEHEW3037-93-12 22:39:00 Test Item Value Reference Range Interpretation Comments Eosinophils (test code = Eosinophils) 0.1 <=4.0 [facility]WF[facility]51 22:39:00 Test Item Value Reference Range Interpretation Comments Lymphocytes (test code = Lymphocytes) 12.2 20.0-40.0 [facility] CypressGggpcftVVMPRNCGLD0326-46-83 22:39:00 Test Item Value Reference Range Interpretation Comments Monocytes (test code = Monocytes) 1.9 2.0-12.0 [facility] CypressRrvvzftWJJPUDVAOD9615-13-07 22:39:00 Test Item Value Reference Range Interpretation Comments Segs (test code = Segs) 85.7 45.0-75.0 [employer] [id number] 16:02:00 Test Item Value Reference Range Interpretation Comments Antibody Scrn (test Negative (08/24/18 code = Antibody Scrn) 11:02 AM) [employer] [id number] 16:02:00 Test Item Value Reference Range Interpretation Comments ABO/Rh (test code = ABO/Rh) A POS [email or web address] [id number] 14:15:00 Test Item Value Reference Range Interpretation Comments eGFR (test code = eGFR) 102 [facility]2019-04-29 14:15:00 Test Item Value Reference Range Interpretation Comments BUN (test code = BUN) 23 7-22 [facility]2019-04-29 14:15:00 Test Item Value Reference Range Interpretation Comments Sodium Lvl (test code = Sodium Lvl) 147 135-145 [facility]2019-04-29 14:15:00 Test Item Value Reference Range Interpretation Comments Glucose Lvl (test code = Glucose Lvl) 90 70-99 [facility]2019-04-29 14:15:00 Test Item Value Reference Range Interpretation Comments Creatinine Lvl (test code = Creatinine 0.64 0.50-1.40 Lvl) [facility]2019-04-29 14:15:00 Test Item Value Reference Range Interpretation Comments Potassium Lvl (test code = Potassium 4.2 3.5-5.1 Lvl) [facility]2019-04-29 14:15:00 Test Item Value Reference Range Interpretation Comments Calcium Lvl (test code = Calcium Lvl) 9.4 8.5-10.5 [facility]2019-04-29 14:15:00 Test Item Value Reference Range Interpretation Comments Chloride Lvl (test code = Chloride Lvl) 110 95-109 [facility]2019-04-29 14:15:00 Test Item Value Reference Range Interpretation Comments CO2 (test code = CO2) 31 24-32 [facility]2019-04-29 14:15:00 Test Item Value Reference Range Interpretation Comments AGAP (test code = AGAP) 10.2 10.0-20.0 [facility]xpTZDADWXGCD2207-84-08 14:15:00 Test Item Value Reference Range Interpretation Comments INR (test code = INR) 0.91 1 0.85-1.17 [facility]ressZbufrsnEVZRRIWSHX0685-10-98 14:15:00 Test Item Value Reference Range Interpretation Comments PT (test code = PT) 12.1 s 12.0-14.7 [facility]ressFmwfbhgAPZGRITJRI4653-71-66 14:15:00 Test Item Value Reference Range Interpretation Comments PTT (test code = PTT) 27.1 s 22.9-35.8 [facility]ressFfucpluYIAHGFVRIK4011-72-37 14:15:00 Test Item Value Reference Range Interpretation Comments MPV (test code = MPV) 8.7 7.4-10.4 [facility]ressUqdyhbaNSKSLEPVLM4530-34-28 14:15:00 Test Item Value Reference Range Interpretation Comments MCV (test code = MCV) 98.7 80.0-98.0 [facility]ressXvcpvaeKAPRPESUPY8162-42-37 14:15:00 Test Item Value Reference Range Interpretation Comments Hct (test code = Hct) 44.7 36.0-48.0 [facility]ressMeqwmdnSOFLWQJPVH3552-52-40 14:15:00 Test Item Value Reference Range Interpretation Comments RBC (test code = RBC) 4.52 4.20-5.40 [facility]ressQiigluoVYZZZFCPTX4579-30-57 14:15:00 Test Item Value Reference Range Interpretation Comments Platelet (test code = Platelet) 191 133-450 [facility]re[id number] 14:15:00 Test Item Value Reference Range Interpretation Comments RDW (test code = RDW) 13.7 11.5-14.5 [facility] CypressBbhneydABJDLVJLML6523-90-55 14:15:00 Test Item Value Reference Range Interpretation Comments Hgb (test code = Hgb) 15.0 12.0-16.0 [facility]ressCibccwhLICDYSRCSW7660-21-46 14:15:00 Test Item Value Reference Range Interpretation Comments MCHC (test code = MCHC) 33.6 32.0-36.0 [facility]ressFocukfwDYXQOAGWNN1193-72-42 14:15:00 Test Item Value Reference Range Interpretation Comments MCH (test code = MCH) 33.2 pg 27.0-31.0 [facility] CypressBzbbeobPYHWERDNRZ4569-78-69 14:15:00 Test Item Value Reference Range Interpretation Comments WBC (test code = WBC) 6.3 3.7-10.4 [facility]ressVomiqkkNGBSJTXDBC5153-40-91 14:15:00 Test Item Value Reference Range Interpretation Comments Eosinophils # (test code = Eosinophils 0.1 <=0.5 #) [facility]ressGkgdrijFXXGHQHOOW6852-85-18 14:15:00 Test Item Value Reference Range Interpretation Comments Monocytes # (test code = Monocytes #) 0.6 <=0.8 [facility]ressVmfowsiQCVYBSDLXL7838-24-10 14:15:00 Test Item Value Reference Range Interpretation Comments Basophils (test code = Basophils) 0.3 <=1.0 [facility]ressAxuvmsjJOUZIZZTYJ5462-32-86 14:15:00 Test Item Value Reference Range Interpretation Comments Lymphocytes # (test code = Lymphocytes 1.9 1.0-5.5 #) [facility]ressUkjwfvoXECPYJLUPM4203-92-17 14:15:00 Test Item Value Reference Range Interpretation Comments Neutrophils # (test code = Neutrophils 3.6 1.5-8.1 #) [facility]ressIgvexowOETMWTVUCU6035-65-28 14:15:00 Test Item Value Reference Range Interpretation Comments Lymphocytes (test code = Lymphocytes) 30.2 20.0-40.0 [facility] CypressGtowbjwSAPOEQDQIP6720-22-75 14:15:00 Test Item Value Reference Range Interpretation Comments Eosinophils (test code = Eosinophils) 1.5 <=4.0 [facility]ressXykwgvoHFWFEIQZKT3505-73-33 14:15:00 Test Item Value Reference Range Interpretation Comments Segs (test code = Segs) 57.9 45.0-75.0 [facility] CypressUcgirlaVPAEMCGBLO6000-54-93 14:15:00 Test Item Value Reference Range Interpretation Comments Monocytes (test code = Monocytes) 10.1 2.0-12.0 [facility]2018-03-26 10:39:00 Test Item Value Reference Interpretation Comments [...] = 13) >100,000 col/mL skin floraURINALYSIS W/ [id number] 09:01:00 Test Item Value Reference Range Interpretation [...] 1574) SOURCE(BEAKER) (test code = Urine, Voided 7345) URINE [id number] 05:37:00 Test Item Value Reference Range Interpretation Comments CULTURE (BEAKER) (test code = See comment 1095) <10,000 col/mL Gram Negative Rods>100,000 col/mL skin floraRAD, CHEST, 1 VIEW, NON [id number] 22:36:00Reason for exam:->Evaluate for infectionShould this be performed at the bedside?->YesFINAL REPORT INDICATION: Evaluate for infection COMPARISON: None TECHNIQUE: Sing le frontal view of the chest. FINDINGS: Lungs and pleura: Clear lungs. No effusion.Heart and mediastinum: Normal heart size. Unremarkable mediastinal contours.Osseous structures: No acute abnormality.Other: None. IMPRESSION: No acute intrathoracic abnormality. Signed: JR Rowland Robert MDReport Verified Date/Time: 07/16/2017 22:36:35 Reading Location: [facility] C013Y CT Body Reading Room MR, MRA, BRAIN, WITHOUT [id number] 21:33:00Reason for exam:->StrokeFINAL REPORT MRA head and neck Comparison: None Reason for exam: Stroke Discussion: 2 D and 3-D ceqn-mc-vylrhk MRA of the head and neck was [...] 07/16/2017 21:33:30 MR, MRA, NECK, WITHOUT IV [id number] 21:33:00Reason for exam:->StrokeFINAL REPORT MRA head and neck Comparison: None Reason for exam: Stroke Discussion: 2 D and 3-D orla-me-fguudr MRA of the head and neck was [...] Cardoso Verified Date/Time: 07/16/2017 21:33:30 MR, BRAIN, [id number] 21:23:00 FINAL REPORT MRI brain with and without contrast Comparison: None Reason for exam: 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 Signed: Sidney Cardoso MDRepsaint [facility]oseph [facility] Verified Date/Time: 07/16/2017 21:23:01 URINALYSIS W/ [id number] 19:13:00 Test Item Value Reference Range Interpretation [...] 516) SOURCE(BEAKER) (test code = Urine, Voided 3246) HEMOGLOBIN [id number] 14:29:00 Test Item Value Reference Range Interpretation Comments HEMOGLOBIN A1C (BEAKER) (test code = 5.4 % 4.3-6.1 368) VALPROIC ACID LEVEL, [id number] 12:47:00 Test Item Value Reference Range Interpretation [...] High 160-189 Very High >=190 FastingBASIC METABOLIC [id number] 02:44:00 Test Item Value Reference Range Interpretation [...] PATIEN TS. CBC W/PLT COUNT & AUTO [id number] 02:30:00 Test Item Value Reference Range Interpretation [...] PERCENT (BEAKER) (test code = 2801) SEDIMENTATION [id number] 22:54:00 Test Item Value Reference Range Interpretation Comments SEDIMENTATION RATE, ERYTHROCYTE 9 mm/HR 0-30 (BEAKER) (test code = 766) LIPID [id number] 21:50:00 Test Item Value Reference Range Interpretation [...] High 160-189 Very High >=190VITAMIN B12 AND [id number] 20:18:00 Test Item Value Reference Range Interpretation Comments VITAMIN B12 (BEAKER) (test code = 580 pg/mL 213816 774) FOLATE (BEAKER) (test code = 362) 11.5 ng/mL >=7.0 TSH/FREE T4 IF [id number] 20:17:00 Test Item Value Reference Range Interpretation Comments THYROID STIMULATING HORMONE 1.88 uIU/mL 0.35-4.94 (BEAKER) (test code = 772) Notes Date/Time Note Provider Source 2021-03-17 05:47:51 [id number]:47:51Radiation Dose [facility] CTDIVOL = 0 (mGy): DLP = 318.2 (mGy-cm)PROCEDURE INFORMATION: Exam: CTA Chest With Contrast Exam date and time: 03/17/2021 5:56 AM Age: 56 years old Clinical indication: /hypoxia TECHNIQUE: Imaging protocol: Computed tomographic angiography of the chest with contrast. 3D rendering (Not supervised by radiologist): MIP and/or 3D reconstructed images were created by the technologist. Radiation optimization: All CT scans at this facility use at least one of these dose optimization techniques: automated exposure control; mA and/or kV adjustment per patient size (includes targeted exams where dose is matched to clinical indication); or iterative reconstruction. Contrast material: BQG340; Contrast volume: 75 ml; Contrast route: INTRAVENOUS (IV); COMPARISON: CHEST W CONTRAST CT 09/16/2020 2:40 AM RADIATION DOSE METRICS: Total DLP (mGy-cm): 318.2 FINDINGS: Limitations: Suboptimal evaluation of subsegmental pulmonary arterial branches in the lingula secondary to respiratory motion. Pulmonary arteries: No detected pulmonary emboli. Pulmonary artery caliber not outside of normal limits. Aorta: No aortic aneurysm. No aortic dissection. Lungs: Bilateral lower lobe infiltrates and subsegmental atelectasis. Remainder of the lungs appear grossly clear.Pleural spaces: Unremarkable. No pneumothorax. No pleural effusion. Heart: No cardiomegaly. No pericardial effusion. Lymph nodes: No pathologically enlarged lymph nodes. Kidneys and ureters: Small bilateral renal stones. Bones/joints: No acute fracture. Soft tissues: Within normal limits. No detected fluid collection. IMPRESSION: 1. No detected pulmonary embolism. Suboptimal evaluation of subsegmental pulmonary arterial branches in the lingula secondary to respiratory motion. 2. Bilateral lower lobe infiltrates and subsegmental atelectasis. Bilateral lower lobe pneumonia not excluded, although findings appear slightly improved when compared to prior CT examination on 09/16/2020. 3. Small bilateral renal stones. Channing Joel MD On 03/17/2021 06:48:57; [id number] ReportsLNDiagnostic ReportsTXTAVAvailable for patient [id number] ReportsLNMethodist [facility]2021-11-20T06:53:00 2021-03-17 04:44:39 [id number]:44:39PROCEDURE [facility] INFORMATION: Exam: XR Chest Exam date and time: 03/17/2021 4:33 AM Age: 56 years old Clinical indication: /hypoxia TECHNIQUE: Imaging protocol: XR of the chest. Views: 1 view. COMPARISON: CR CHEST 1VIEW DX 01/14/2021 8:22 AM FINDINGS: Lungs: The lungs are underinflated. There is mild atelectasis at the bilateral infrahilar lungs. Otherwise, no consolidation is visible. Pleural spaces: No pleural effusion or pneumothorax are visible. Heart/Mediastinum: The cardiac silhouette and pulmonary vasculature are grossly within normal limits. Bones/joints: No acute bony abnormalities are seen. IMPRESSION: Bibasilar atelectasis. Otherwise, no acute intrathoracic abnormalities are visualized. Hector Beatty MD On 03/17/2021 05:11:52; [id number] ReportsLNDiagnostic ReportsTXTAVAvailable for patient [id number] ReportsLNIEHca [facility] Healthcare [facility] CypressUccutwh7157-24-99O99:15:00 2021-03-14 10:14:53 [id number]:14:53EXAM: [facility] WITHOUT CONTRASTDATE: Center 03/14/2021INDICATION: ' - unarousable, AMS change from baseline'ADDITIONAL INFORMATION: NoneCOMPARISON: Head CTs 03/09/2021, 01/16/2021, 01/05/2021TECHNIQUE: Noncontrast axial CT images were acquired through the brain. 5 mm axial, sagittal, and coronal images were reviewed.IV contrast: NoneDLP: Refer to CT protocol formFINDINGS: No interval adverse change.Left frontal surgical cavity/encephalomalacia and gliosis with overlying left craniotomy and mesh cranioplasty as well as left predominantly fatty soft tissue flap reconstruction. The focal soft tissue dehiscence within the flap. Underlying osteolytic changes in the midline frontal calvarium (series 3 image 26) are unchanged from the previous exams.There is no new intracranial hemorrhage or extra-axial collection. No new parenchymal density abnormality.The ventricles are unchanged in caliber and configuration.IMPRESSION: 1. Unchanged exam, with no new or acute intracranial abnormality.2. Surgical bed/encephalomalacia and gliosis of the left frontal lobe with overlying craniotomy, cranioplasty, and flap soft tissue reconstruction. Unchanged focal soft tissue dehiscence of the midline frontal component of the flap with underlying osteolytic changes in the frontal calvarium.[id number] ReportsLNDiagnostic ReportsTXTAVAvailable for patient [id number] ReportsLNSaint [facility]2021-11-17T10:37:00 2021-03-09 11:06:00 [id number]:06:00EXAM: CT BRAIN [facility] WITHOUT CONTRASTDATE: 03/09/2021 Center 11:15 CSTINDICATION: - altered mental statusCOMPARISON: CT brain dated 01/16/2021.TECHNIQUE: Axial CT images of the brain were obtained. Sagittal and coronal reformats.IV contrast: None.DLP: 891 mGy-cmFINDINGS: Unchanged subdural effusion overlying the left cerebral hemisphere. No acute intracranial hemorrhage is identified. Postoperative changes of the left-sided craniectomy and cranioplasty are again noted. The ventricles are unchanged in size. Areas of encephalomalacia are seen in the left frontal lobe.IMPRESSION: 1. Unchanged subdural effusion overlying the left cerebral hemisphere. 2. Areas of encephalomalacia in the left frontal lobe. Postoperative changes of the left-sided craniectomy and cranioplasty.[id number] ReportsLNDiagnostic ReportsTXTAVAvailable for patient [id number] ReportsLNSaint [facility]'s [facility]2021-11-12T12:22:00 2021 12:19:00 [id number]:19:00PROCEDURE: [facility] placementProcedural PersonnelAttending physician(s): Ervin Duque MDFellow physician(s): Edwige Knapp MD, fellowPre-procedure diagnosis: dysphagiaPost-procedure diagnosis: SameIndication: Nutritional supportAdditional relevant history: NoneCOMPARISON: NonePROCEDURE SUMMARY:- Gastrostomy tube placement under fluoroscopic guidanceIMPRESSION:Successful percutaneous placement of 16 Martiniquais push-type gastrostomy tube.Plan: 1. No tube feeds for 24 hours. If no peritoneal signs after 24 hours, can begin tube feeds. 2. Okay to administer medication through G-tube immediately following the procedure3. Follow-up in IR clinic in 2 week for education and T- tack gastropexy removal. PROCE DURE DESCRIPTIONThe benefits, risks, and alternatives to the procedure and sedation were fully discussed and informed consent was obtained. Pre-procedure assessment was performed, which documented that the patient was an appropriate candidate for moderate sedation. All vital signs were monitored and recorded by nursing staff present during the entire procedure. Total intra-service time was 30 minutes.The patient was brought into the interventional suite and a pre-procedure time-out was performed. During the time-out, the patient's name, medical record number, site of procedure, and type of procedure were verified. The patient was placed in the supine position on the procedure table. The anticipated puncture site was prepped and draped in the usual sterile fashion and maximum sterile barrier precautions were maintained throughout the procedure.GASTROSTOMY TUBE PLACEMENTThe liver margin was localized by ultrasound. An indwelling nasogastric tube was already in place. Local anesthesia was administered with 1% lidocaine. The stomach was inflated with air and judged appropriate for access. 2 T-fasteners were placed under fluoroscopic guidance. The stomach was accessed and a wire was placed. The gastrostomy tract was dilated, the gastrostomy tube was advanced into the stomach, and intragastric position was confirmed with contrast injection. The tube was capped.Gastrostomy tube placed: CRISTOBAL-type gastrostomy tube.Internal catheter securement: BalloonExternal catheter securement: Retention discThe patient tolerated the procedure well and was discharged from the interventional suite in stable condition. ___Special equipment used: NoneComplications: No immediate complications.Estimated blood loss (mL): Less than 10ContrastContrast agent: Omnipaque 300Contrast volume (mL): 25Radiation DoseFluoroscopy time (min): 2.5 Reference air kerma (mGy): 14.1 Kerma area product (uGy-m2): 6.3AttestationSigner name: DEIDRA Davey attest that I was present for the entire procedure. I reviewed the stored images and agree with the report as written.[id number] ReportsLNDiagnostic ReportsTXTAVAvailable for patient [id number] ReportsLNMHIEMetropolitan Methodist Hospital2021-09-29T16:44:00 2021 12:19:00 [id number]:19:00PROCEDURE: [facility] Gastrostomy tube [place] placementProcedural PersonnelAttending physician(s): Ervin Duque MDFell physician(s): Edwige Knapp MD, fellowPre-procedure diagnosis: dysphagiaPost-procedure diagnosis: SameIndication: Nutritional supportAdditional relevant history: NoneCOMPARISON: NonePROCEDURE SUMMARY:- Gastrostomy tube placement under fluoroscopic guidanceIMPRESSION:Successful percutaneous placement of 16 Martiniquais push-type gastrostomy tube.Plan: 1. No tube feeds for 24 hours. If no peritoneal signs after 24 hours, can begin tube feeds. 2. Okay to administer medication through G-tube immediately following the procedure3. Follow-up in IR clinic in 2 week for education and T- tack gastropexy removal. PROCE DURE DESCRIPTIONThe benefits, risks, and alternatives to the procedure and sedation were fully discussed and informed consent was obtained. Pre-procedure assessment was performed, which documented that the patient was an appropriate candidate for moderate sedation. All vital signs were monitored and recorded by nursing staff present during the entire procedure. Total intra-service time was 30 minutes.The patient was brought into the interventional suite and a pre-procedure time-out was performed. During the time-out, the patient's name, medical record number, site of procedure, and type of procedure were verified. The patient was placed in the supine position on the procedure table. The anticipated puncture site was prepped and draped in the usual sterile fashion and maximum sterile barrier precautions were maintained throughout the procedure.GASTROSTOMY TUBE PLACEMENTThe liver margin was localized by ultrasound. An indwelling nasogastric tube was already in place. Local anesthesia was administered with 1% lidocaine. The stomach was inflated with air and judged appropriate for access. 2 T-fasteners were placed under fluoroscopic guidance. The stomach was accessed and a wire was placed. The gastrostomy tract was dilated, the gastrostomy tube was advanced into the stomach, and intragastric position was confirmed with contrast injection. The tube was capped.Gastrostomy tube placed: CRISTOBAL-type gastrostomy tube.Internal catheter securement: BalloonExternal catheter securement: Retention discThe patient tolerated the procedure well and was discharged from the interventional suite in stable condition. ___Special equipment used: NoneComplications: No immediate complications.Estimated blood loss (mL): Less than 10ContrastContrast agent: Omnipaque 300Contrast volume (mL): 25Radiation DoseFluoroscopy time (min): 2.5 Reference air kerma (mGy): 14.1 Kerma area product (uGy-m2): 6.3AttestationSigner name: DEIDRA Davey attest that I was present for the entire procedure. I reviewed the stored images and agree with the report as written.[id number] ReportsLNDiagnostic ReportsTXTAVAvailable for patient [id number] ReportsLNSaint [facility]'s [facility]2021-09-29T16:44:00 2021-01-16 14:54:42 [id number]:54:42EXAM: CT HEAD [facility] WITHOUT CONTRASTDATE: 01/16/2021 Center 11:46 AM CDTINDICATION: 55 years old Female patient with history of - hx chronic SDH, recently on heparin drip.TECHNIQUE: Multiple axial images were obtained through the head from vertex to the skull base. Axial bone algorithm reconstruction images are provided. COMPARISON: CT head 01/05/2021..FINDINGS:Subdural collection is again identified overlying the left frontal lobe, grossly unchanged. The subdural effusion overlying the left cerebral hemisphere is a smaller in size. No acute intracranial hemorrhage is identified. Postoperative changes of the left-sided craniectomy and cranioplasty are again noted. The ventricles are unchanged in size. Areas of encephalomalacia are seen in the left frontal lobe.IMPRESSION:1. Interval decrease in size of subdural effusion overlying the left cerebral hemisphere. Evolving subdural collection overlying the left anterior frontal lobe grossly unchanged in volume.2. Areas of encephalomalacia are again seen in the left frontal lobe. Postoperative changes of the left-sided craniectomy and cranioplasty.[id number] ReportsLNDiagnostic ReportsTXTAVAvailable for patient [id number] ReportsLNSaint [facility]'s [facility]2021-09-21T16:11:00 2021-01-14 08:22:00 [id number]:22:00EXAM: XR CHEST 1 [facility] VIEWDATE: 01/14/2021 6:42 Center CDTINDICATION: - assess for pneumonia. TECHNIQUE: Chest 1 viewFINDINGS: Comparison is made to January 12.Cardiomediastinal silhouette is unchanged. There is a gastric tube in place. Surgical clips in the left axilla.The lungs are low in volume with bibasilar subsegmental atelectasis. Bilateral infrahilar opacities are concerning for superimposed aspiration or pneumonia. The upper lungs are clear.IMPRESSION:1. The lungs are low in volume with bibasilar subsegmental atelectasis.2. Bilateral infrahilar airspace opacities are concerning for superimposed aspiration or pneumonia.[id number] ReportsLNDiagnostic ReportsTXTAVAvailable for patient [id number] ReportsLNSaint [facility]2021-09-19T11:45:00 2021-01-13 02:32:00 [id number]:32:00EXAM: XR ABDOMEN [place] [address] VIEWDATE: 01/13/2021 1:57 AM Ce nter CDTINDICATION: - NGT placementCOMPARISON: January 13 06/17/2020 0114 hoursTECHNIQUE: AP abdomenFINDINGS/IMPRESSION: Compared to the prior examination the NG tube remains folded back in the fundus of the stomach. Bowel gas pattern is unremarkable. Bibasilar subsegmental atelectasis is noted.[id number] ReportsLNDiagnostic ReportsTXTAVAvailable for patient [id number] ReportsLNSaint [facility]2021-09-18T07:59:00 2021-01-12 06:17:00 [id number]:17:00EXAM: XR CHEST 1 [facility] VIEWDATE: 01/12/2021 5:48 AM CDT Center INDICATION: - increased WBC, secretionsCOMPARISON: 01/07/2021TECHNIQUE: AP chestIMPRESSION: 1. Gastric tube is stable compared to previous study.2. Few scattered atelectatic changes are seen bilaterally. Otherwise, lungs are clear. 3. Costophrenic sulci are sharp.4. Cardiomediastinal silhouette is normal for technique.5. Osseous structures are stable.[id number] ReportsLNDiagnostic ReportsTXTAVAvailable for patient [id number] ReportsLNSaint [facility]'s [facility]2021-09-17T10:26:00 2021-01-12 01:09:00 [id number]:09:00EXAM: XR ABDOMEN [place] [address] VIEWDATE: 01/13/2021 12:01 AM C enter CDTINDICATION: - NGT placementCOMPARISON: January 04, 2021TECHNIQUE: AP abdomenFINDINGS/IMPRESSION: Compared to the prior examination there is redemonstration of a folded NG tube with tip in the fundus of the stomach. Subsegmental atelectasis is increase in both lung bases. Bowel gas pattern is unremarkable.[id number] ReportsLNDiagnostic ReportsTXTAVAvailable for patient [id number] ReportsLNSaint [facility]'s [facility]2021-09-18T08:02:00 2021-01-07 00:47:00 [id number]:47:00EXAM: XR CHEST 1 [facility] VIEWDATE: 01/07/2021 12:45 AM CDT Center INDICATION: - Unable to wean O2 requirementsCOMPARISON: 01/06/2021TECHNIQUE: AP chestIMPRESSION: 1. Interval extubation. Gastric tube is stable compared to previous study.2. Few scattered atelectatic changes are seen bilaterally. Otherwise, lungs are clear. 3. Costophrenic sulci are sharp.4. Cardiomediastinal silhouette is normal for technique.5. Osseous structures are stable.[id number] ReportsLNDiagnostic ReportsTXTAVAvailable for patient [id number] ReportsLNSaint [facility]2021-09-12T10:40:00 2021-01-06 00:18:00 [id number]:18:00EXAM: XR CHEST 1 [facility] VIEWDATE: 01/06/2021 3:00 AM T Center INDICATION: - coampare to previousCOMPARISON: 01/05/2021TECHNIQUE: AP chestIMPRESSION: 1. Endotracheal and gastric tubes are stable compared to previous study.2. Few scattered atelectatic changes are seen bilaterally. Otherwise, lungs are clear. 3. Costophrenic sulci are sharp.4. Cardiomediastinal silhouette is normal for technique.5. Osseous structures are stable.[id number] ReportsLNDiagnostic ReportsTXTAVAvailable for patient [id number] ReportsLNSaint [facility]2021-09-11T09:42:00 2021-01-05 11:05:00 [id number]:05:00EXAMINATION: CT [facility] head without contrastDATE: Ancelmo dozier 01/05/2021INDICATION: Subdural hematoma. Postop with heparin drip.FINDINGS:Noncontrast CT images of the head are compared to exams dated 01/02/2021 12/23/2020There has been interval placement of a large myocutaneous flap over the frontal convexity and left frontotemporal region, with some postoperative air and surgical drainage material over the right frontal convexity. Changes of left frontal and temporal craniotomy and calvarial reconstruction again noted with some resolving air in the extra-axial spaceA isodense subdural collection over the left parietal convexity is grossly unchanged in size, without evidence of acute hemorrhage.Brain parenchyma is stable in appearance with advanced encephalomalacic changes in the left frontal and temporal lobe.IMPRESSION:Stable subdural collections. No acute intracranial abnormality.Interval flap placement.[id number] ReportsLNDiagnostic ReportsTXTAVAvailable for patient [id number] ReportsLNSaint [facility]2021-09-10T11:22:00 2021-01-05 04:08:00 [id number]:08:00EXAM: XR CHEST 1 [facility] VIEWDATE: 01/05/2021 3:00 AM CDT Center INDICATION: - compare to previousCOMPARISON: 01/04/2021TECHNIQUE: AP chestIMPRESSION: 1. Endotracheal and gastric tubes are stable compared to previous study.2. Few scattered atelectatic changes are seen bilaterally. Otherwise, lungs are clear. 3. Costophrenic sulci are sharp.4. Cardiomediastinal silhouette is normal for technique.5. Osseous structures are stable.[id number] ReportsLNDiagnostic ReportsTXTAVAvailable for patient [id number] ReportsLNSaint [facility]2021-09-10T11:03:00 2021-01-04 21:50:00 [id number]:50:00EXAM: XR ABDOMEN [place] [address] VIEWDATE: 01/04/2021 21:32 CDT C enter INDICATION: - Advancement of NGT ADDITIONAL INFORMATION: None.COMPARISON: KUB 01/04/2021 at 2040 hours TECHNIQUE: Single frontal view of the abdomen.FINDINGS: Lines and tubes: NG tube with tip overlying the gastric fundus and sidehole overlying the region of the distal gastric fundus.Overlying EKG leads.Lower thorax: Bibasilar atelectasis.Bowel: Nonobstructive bowel gas pattern. Solid organs: No abnormal mass or organomegaly seen. Calcifications: No abnormal calcifications found. Bones: Unchanged. IMPRESSION: * NG tube as described.[id number] ReportsLNDiagnostic ReportsTXTAVAvailable for patient [id number] ReportsLNSaint [facility]2021-09-10T08:49:00 2021-01-04 20:30:00 [id number]:30:00EXAM: XR ABDOMEN [place] [address] VIEWDATE: 01/04/2021 20:29 CDT C enter INDICATION: - NG tube placement ADDITIONAL INFORMATION: None.COMPARISON: KUB 01/04/2021 at 0729 hours TECHNIQUE: Single frontal view of the abdomen.FINDINGS: Lines and tubes: NG tube with tip projecting over the gastric fundus with sidehole overlying the region of the distal esophagus.Overlying EKG leads.Lower thorax: Bilateral airspace opacities.Bowel: Nonobstructive bowel gas pattern. Solid organs: No abnormal mass or organomegaly seen. Calcifications: No abnormal calcifications found. Bones: Unchanged. IMPRESSION: * NG tube as described. Consider advancement.[id number] ReportsLNDiagnostic ReportsTXTAVAvailable for patient [id number] ReportsLNSaint [facility]2021-09-10T08:48:00 2021-01-04 07:20:00 [id number]:20:00EXAM: XR CHEST 1 [facility] VIEWDATE: 01/04/2021 7:01 Center CDTINDICATION: Line Placement - ETT. TECHNIQUE: Chest 1 viewFINDINGS: Comparison is made to December 15.Cardiomediastinal silhouette is unchanged. There is bilateral infrahilar subsegmental atelectasis. No pleural effusions.There are surgical clips in the left axilla. Surgical clips in both sides of the neck.A gastric tube has been inserted with sideport near the GE junction. Intubated; tip of the endotracheal tube is located 4.5 cm above the gurwinder.IMPRESSION:1. Intubated. New gastric tube.2. Bilateral infrahilar subsegmental atelectasis.[id number] ReportsLNDiagnostic ReportsTXTAVAvailable for patient [id number] ReportsLNSaint [facility]2021-09-09T10:12:00 2021-01-04 07:20:00 [id number]:20:00EXAM: XR ABDOMEN [facility] 1 VIEWDATE: 01/04/2021 0729 hours Center INDICATION: - NGTCOMPARISON: None. TECHNIQUE: AP abdomen.FINDINGS: Lines, tubes and hardware: Enteric tube side-port is overlying the GE junction and tip is overlying the gastric body. Lower thorax: Unremarkable where visible.Abdomen and bowel: Paucity of the bowel gas. Bones and soft tissues: No acute abnormality.IMPRESSION: 1. Enteric tube side-port is overlying the GE junction and tip is overlying the gastric body. Recommend further advancement.[id number] ReportsLNDiagnostic ReportsTXTAVAvailable for patient [id number] ReportsLNSaint [facility]2021-09-09T12:19:00 2021-01-02 14:10:00 [id number]:10:00EXAM: CT BRAIN [facility] WITHOUT CONTRASTDATE: 01/02/2021 C enter 12:18 PM CDTINDICATION: - L chronic SDHCOMPARISON: CT brain without contrast 12/15/2020TECHNIQUE: Routine axial images of the brain were obtained without contrast.Coronal and sagittal reformatted images.IV contrast: None.FINDINGS: Again noted are postsurgical changes of left frontal cranioplasty with superficial the soft tissue graft reconstruction along the cranioplasty flap. Defects are seen within the overlying left frontal scalp soft tissues which communicate with air seen within the extradural space subjacent to the cranioplasty. Encephalomalacia in the left frontal lobe is unchanged. Hematohygromas are again noted along the left greater than right parietal convexities. The left parietal hematohygroma measures 13 mm in thickness, unchanged. The right parietal hematohygroma measures 6 mm in thickness, slightly decreased.The ventricles are stable in size. No midline shift or downward herniation.IMPRESSION:Postsurgical changes along the left frontal cranioplasty.Again noted are hematohygromas along the left greater than right parietal convexities. Mild interval decrease of the right parietal hematohygroma.Left frontal lobe encephalomalacia.[id number] ReportsLNDiagnostic ReportsTXTAVAvailable for patient [id number] ReportsLNSaint [facility]2021-09-07T14:40:00 2020-12-23 05:52:36 [id number]:52:36EXAM: CT HEAD [facility] WITHOUT CONTRAST.DATE: 12/23/2020 Center 4:44 AM CDTINDICATION: - post op, neuro changesCOMPARISON: Noncontrast head CT's done on 09/15/2020 and 12/20/2020TECHNIQUE: Axial volumetric CT images of the head were obtained. Reconstructions are available.IV contrast: None.FINDINGS: Compared to the immediate prior noncontrast head CT done on 12/20/2020, there are interval surgical changes from a soft tissue graft reconstruction along the left frontal cranioplasty flap. A hypodense soft tissue graft is noted and there are defects in this graft with evidence of some vessels. The findings are suggestive of a fat-containing graft.No concerning intracranial abnormality is identified. Stable encephalomalacia is noted in the left frontal lobe.Stable small hematohygromas are noted along the high parietal convexities. Visualized orbits and paranasal sinuses appear unremarkable.IMPRESSION: Interval surgical changes from placement of a fat-containing soft tissue graft along the left frontal cranioplasty.No interval intracranial abnormality. Stable small hematoma hygromas along the bilateral high parietal convexities. Stable encephalomalacia in the left frontal lobe.[id number] ReportsLNDiagnostic ReportsTXTAVAvailable for patient [id number] ReportsMedical [facility]2021-08-28T09:56:00 2020-12-20 23:08:35 [id number]:08:35EXAM: CT HEAD [facility] WITHOUT CONTRAST.DATE: 12/20/2020 Center 9:00 PM CDTINDICATION: Stability post cranioplasty.COMPARISON: Noncontrast head CT done on 12/20/2020 at 4:10 PM and 09/15/2020.TECHNIQUE: Axial volumetric CT images of the head were obtained. Reconstructions are available.IV contrast: None.FINDINGS: There is no interval adverse change compared to the immediate prior noncontrast head CT.Acute surgical changes from left frontal cranioplasty are noted. Small amount of free air is noted in the surgical bed and scalp swelling is noted.Stable small hematohygroma is seen along the left high frontoparietal convexity. There is no concerning intracranial mass effect. A tiny stable hematohygroma is seen along the right high cerebral convexity.Stable encephalomalacia is seen in the left frontal lobe. There is no ventriculomegaly. Exvacuo prominence of the frontal horns of the lateral ventricles is seen.The visualized orbits and paranasal sinuses appear unremarkable.IMPRESSION: Evaluation is unchanged compared to the immediate prior noncontrast head CT done at 4:10 PM. Stable small hematohygromas are noted along the bilateral high cerebral convexities. There is no significant intracranial mass effect.Acute surgical changes from left frontal cranioplasty.[id number] ReportsLNDiagnostic ReportsTXTAVAvailable for patient [id number] ReportsLNIEMetropolitan Methodist Hospital2021-08-26T00:03:00 2020-12-20 16:01:00 [id number]:01:00EXAM: CT BRAIN [facility] WITHOUT CONTRASTDATE: Center 12/20/2020INDICATION: ' - increased right sided weakness, hx of L sided ganglioma resection and prior CVA'ADDITIONAL INFORMATION: 55-year-old with history of ganglioglioma status post resection in 1992, admitted August 2020 for fever, altered mental status, left scalp wound, exposed hardware, and open wound. Complicated reconstruction and postoperative course now with flap ischemia taken to the OR the morning of 12/19 for exploration. Planning for free flap reconstruction this Friday.COMPARISON: Noncontrast head CT 09/15/2020, 08/16/2020, MRI 08/24/2018, 08/16/2020TECHNIQUE: Noncontrast axial CT images were acquired through the brain. 5 mm axial, sagittal, and coronal images were reviewed.IV contrast: None.FINDINGS: New epidural air subjacent to the left frontal cranioplasty mesh. Irregularity of the overlying soft tissues.New left greater than right posterior frontal/parietal mixed attenuation subdural collections with trace layering hyperattenuating hemorrhage. Regional minimal mass effect with no midline shift or herniation.Unchanged encephalomalacia, gliosis, and operative bed throughout the left frontal lobe. No new parenchymal density abnormality.The ventricles are unchanged in caliber and configuration.IMPRESSION: 1. New bilateral (left larger than right) thin partially hemorrhagic subdural collections. No midline shift or herniation. No new brain parenchymal density abnormality.2. Extensive left scalp irregularity with small droplets of new epidural air subjacent to the left cranioplasty mesh reconstruction.3. Extensive encephalomalacia and gliosis around the left frontal operative bed.Findings of thin subdural hemorrhages discussed with Ms. Domitila RN, who read back the findings, at 5:49 PM on 12/20/2020 via telephone.[id number] ReportsLNDiagnostic ReportsTXTAVAvailable for patient [id number] ReportsMedical [facility]2021-08-25T17:54:00 2020-12-15 23:26:00 [id number]:26:00EXAM: XR CHEST 1 [facility] VIEWDATE: 12/15/2020 10:[address] CDTINDICATION: - elevated lactateCOMPARISON: Chest x-ray dated September 15, 2020TECHNIQUE: AP chest, portable radiographIMPRESSION:1. Interval removal of right-sided PICC line.2. Cardiomediastinal silhouette is normal in size and contour.3. Low lung volumes causing vascular crowding and bibasilar subsegmental atelectasis. Prominent lung reticulations with peribronchial cuffing likely consistent with interstitial edema. No definite pleural effusion. No perceptible pneumothorax.4. Osseous structures are unchanged.[id number] ReportsLNDiagnostic ReportsTXTAVAvailable for patient [id number] ReportsMedical Center [facility]2021-08-21T15:23:00 2020-09-16 06:46:00 [id number]:46:00EXAM: MRI BRAIN [facility] WITH AND WITHOUT CONTRASTDATE: C enter 09/16/2020 08:06 CDTINDICATION: 55 year old female with a past medical history of HTN, and a ganglioglioma resected in 1992, followed by radiation therapy at [facility]. She is known to our service for left-sided frontal enhancing mass on imaging and underwent a left-sided frontal craniotomy for tumor resection and loose screw removal on 08/27/2018. Pathology did not reveal any evidence of recurrence of ganglioma or progression to a higher grade tumor. Pt. returns to [facility] ED complaining of crusting and drainage from craniotomy site. She states this has been going on for approximately 1-2 months; she 'bumped her head' several times and since then scabbing has occurred; her states that she has been picking at the wound and recently while she was at her mothers house she had a significant amount of pus drainage and noted that the area of open wound had expanded. She denies seizures, fevers, headaches, nausea/vomiting, new weakness/numbness/tingling. debridement of the craniotomy site with removal of a portion of the craniotomy flap posteriorly and superiorly on 08/16/2020. - eval infection ADDITIONAL INFORMATION: - AMS, fever, recent intracranial infection s/p craniectomy.COMPARISON: Most recent MRI brain dated 08/16/2020, CT brain dated 09/15/2020. And multiple prior brain magnetic resonance imaging studies.TECHNIQUE: Multiplanar, multisequence MRI of the brain with and without intravenous contrast. IV contrast: 11 mL MultiHance.FINDINGS:Since the prior MRI, the patient has undergone debridement of the craniotomy site with removal of a portion of the craniotomy flap posteriorly and superiorly. Post surgical changes from left craniotomy and cranioplasty with accompanying subcutaneous emphysema within the skin defect and new fluid collection, measuring 2.4 x 1.3 cm. No evidence of abscess.Scattered demineralization of the calvarium at this location which is better appreciated on corresponding CT is nonspecific and similar to the prior MRI. Unchanged surgical cavity in the left precentral gyrus with thin peripheral enhancement surrounding the resected lesion. Additional smaller foci of enhancement in cortex at the junction of the left superior frontal and precentral gyri are stable over the interval. No new enhancing mass is identified. The extent of T2 changes in the bilateral hemispheres, particularly those surrounding the left frontal resection cavity involving the left superior and middle frontal gyri is similar. A resection cavity in the left frontal convexity involving the superior and middle frontal gyrus is noted consistent with the clinical history. Surrounding gliosis/encephalomalacia with ex vacuo dilatation of the left frontal horn. There is global volume loss with enlargement of the ventricles and extra-axial spaces, significantly advanced for stated age.Diffusion-weighted images fail to demonstrate any recent ischemic change.No abnormal leptomeningeal enhancement or abscess.IMPRESSION:1. Interval debridement of the surgical site on 08/16/2020. Post surgical changes from left craniotomy and cranioplasty with accompanying subcutaneous emphysema within the skin defect and new fluid collection. No evidence of abscess.2. Stable surgical cavity in the left precentral gyrus with thin peripheral enhancement.3. Stable conspicuity of additional foci of enhancement in the left frontal cortex at the junction of the superior frontal and precentral gyri4. Stable T2 changes in the bilateral hemispheres, particularly those surrounding the left frontal resection cavity involving the left superior and middle frontal gyri. 5. Stable appearance of the resection cavity involving the left superior and middle frontal gyri.[id number] ReportsLNDiagnostic ReportsTXTAVAvailable for patient [id number] ReportsLNMHIEMetropolitan Methodist Hospital2021-05-22T12:25:00 2020-09-16 02:42:55 [id number]:42:55EXAM: CT CHEST [facility] WITH CONTRASTDATE: 09/16/2020 2:11 Center CDTINDICATION: - sepsisADDITIONAL INFORMATION: None.COMPARISON: None available.TECHNIQUE: Volumetric CT of the chest is acquired following intravenous administration of contrast. Axial, coronal and sagittal images are provided. Axial MIP reconstructions are created at the acquisition workstation.IV contrast: 100 mL of Omnipaque 350DLP (mGy-cm): 646. * Doses also pertain to multiple CT exams acquired concurrently. FINDINGS: Member [employer]: Noncontributory.Lines, tubes and hardware: Right upper extremity PICC with tip terminating in the region of the cavoatrial junction.Lower neck: Punctate bilateral thyroid hypodensities. No further evaluation required. The visible portions of the lower neck and thyroid are otherwise unremarkable.Axilla: No pathologically enlarged lymph nodes.Airway: Patent.Lungs and pleura: High attenuation consolidation in the bilateral lower lobes is most compatible with subsegmental atelectasis. No pleural effusion or pneumothorax.Mediastinum, brandin and intrathoracic lymph nodes: No pathologically enlarged lymph nodes.Heart, pericardium and great vessels: Heart size is normal. No coronary artery calcifications identified. No abnormal pericardial thickening or fluid. Ascending thoracic aorta and pulmonary trunk are within normal limits in caliber. No atherosclerotic calcification of the thoracic aorta. No pulmonary embolism.Upper abdomen: Please see dictation for concurrent CT of the abdomen and pelvis for details concerning the visualized upper abdomen.Bones: No acute abnormality. Diffuse idiopathic skeletal hyperostosis noted in the thoracic spine.Soft tissues: Normal.IMPRESSION: 1. Bibasilar subsegmental atelectasis. No CT findings suggestive of infection within the thorax.2. Please see dictation for concurrent CT of the abdomen and pelvis for details concerning the visualized upper abdomen.[id number] ReportsLNDiagnostic ReportsTXTAVAvailable for patient [id number] ReportsLNIEMetropolitan [facility]2021-05-22T09:52:00 2020-09-16 02:42:55 [id number]:42:55EXAM: CT ABDOMEN [facility] AND PELVIS WITH CONTRASTDATE: Ce nter 09/16/2020 at 0240 hours INDICATION: - diarrhea, back pain ADDITIONAL INFORMATION: None.COMPARISON: None.TECHNIQUE: Volumetric CT of the abdomen and pelvis acquired following the intravenous administration of contrast. Axial, coronal and sagittal images are provided.IV contrast: 100 mL of Omnipaque 350Enteric contrast: None.DLP (mGy-cm): 646. * Doses also pertain to concurrently acquired chest CT. FINDINGS:Member Of Congress: Noncontributory.Lines, tubes and hardware: Partially visualized central venous catheter with tip in the cavoatrial junction.Lower thorax: Lower thoracic findings are as reported on concurrently obtained chest CT of the same date.Liver: Normal.Biliary tree: No intra- or extrahepatic bile duct dilation.Gallbladder: Sludge identified. No inflammation.Pancreas: Normal.Spleen: Normal.Adrenals: Normal.Kidneys and ureters: * Large kidneys with very faint areas of cortical hypoenhancement and perinephric stranding may relate to pyelonephritis, especially given history of back pain.* Subcentimeter hypodensities are too small to accurately characterize, but likely represent cysts.Bladder: Normal.Reproductive organs: Uterus and adnexa are unremarkable.Gastrointestinal tract:Lower esophagus: Normal.Stomach: Normal.Small bowel: Normal.Colon: * Normal caliber.* Some watery stool may relate to diarrhea.Appendix: Normal.Peritoneum, mesentery and retroperitoneum: No free air, ascites or loculated fluid.Lymph nodes: Normal.Vasculature: Aorta and branches: Normal.IVC and veins: Normal.Portal and mesenteric vasculature: Normal.Bones: No acute abnormality.Soft tissues: Normal.IMPRESSION: 1. Suspected bilateral pyelonephritis.2. Gallbladder sludge without inflammationRECOMMENDATIONS: Urinalysis.[id number] ReportsLNDiagnostic ReportsTXTAVAvailable for patient [id number] ReportsLNIEM[facility]2021-05-22T07:23:00 2020-09-15 19:37:31 [id number]:37:31EXAM: CT BRAIN [facility] WITHOUT CONTRASTDATE: 09/15/2020 Center 7:47 PM CDTINDICATION: - AMS, fever, recent intracranial infection s/p craniectomyCOMPARISON: Head CT 08/16/2020, brain MR later the same day.TECHNIQUE: Routine axial images of the brain were obtained using a conventional ct scanner. Reformatted images in the sagittal and coronal plane were included.IV contrast: None.FINDINGS: Since the prior CT study the patient has undergone debridement of the craniotomy site with removal of a portion of the craniotomy flap posteriorly and superiorly. The remaining bone is partly demineralized but has similar attenuation characteristics to the preceding exam without evidence of an aggressive osseous lesion.The underlying surgical cavity within the superior frontal gyrus on the left is unchanged with subjacent areas of low attenuation within the white matter and communication between the cavity and the left frontal horn which demonstrates compensatory dilation. Remainder of the ventricular system is of normal size.Scattered parenchymal calcifications are seen in the left frontal cortex, unchanged.The appearance of the remainder of the brain parenchyma is alsounchanged. No territorial infarct or hemorrhage is evident. No mass effect or midline shift. Incidental imaging of the orbits, paranasal sinuses, skull, and skull base also demonstrates no interval change.IMPRESSION: 1. Interval debridement of the patient's surgical site the prior head CT with areas of low attenuation within representing tiny foci of air. Depending on the date of surgery, this could be pathologic or merely an expected postsurgical change. There is no significant soft tissue swelling and the remaining portions of the craniotomy flap do not demonstrate aggressive bone destruction.2. There are no extra-axial or intra-axial collection identified on CT intracranially.3. Encephalomalacia in the left frontal lobe is again demonstrated. 4. Hypodensity in the superior frontal gyrus on the left is likely gliosis at this point.[id number] ReportsLNDiagnostic ReportsTXTAVAvailable for patient [id number] ReportsLNSaint [facility]'s [facility]2021-05-22T00:30:00 2020-09-15 16:30:22 [id number]:30:22EXAM: XR CHEST 1 [facility] VIEWDATE: 09/15/2020 16:20 CDT Ce nter INDICATION: - Undifferentiated SepsisCOMPARISON: Chest x-ray 08/28/2020UT SECTION: ERTECHNIQUE: AP chest.FINDINGS:Lines, tubes and hardware: Right PICC tip again terminates in the upper right atrium.Lungs and pleura: Lung volumes are low, causing bronchovascular crowding. Trace opacities are greatest over the lung bases. The costophrenic sulci are sharp without effusion. No pneumothorax is identified.Heart and mediastinum: The heart size is normal. The mediastinal contours are normal. Bones and soft tissues: No acute abnormality.IMPRESSION: Low lung volumes and bibasilar airspace opacities likely representing subsegmental atelectasis. Developing pneumonia is not entirely excluded.[id number] ReportsLNDiagnostic ReportsTXTAVAvailable for patient [id number] ReportsLNSaint [facility]'s [facility]2021-05-21T16:40:00 2020-08-28 10:07:00 [id number]:07:00EXAM: XR CHEST 1 [facility] VIEWDATE: 08/28/2020 10:00 Center CDTINDICATION: Line Placement - Chest 1 view for line placementCOMPARISON: Chest x-ray dated August 25, 2020TECHNIQUE: AP chest, portable radiographIMPRESSION:1. Right-sided PICC line tip superimposing over cavoatrial junction..2. Cardiomediastinal silhouette is normal in size and contour.3. Left retrocardiac and right lower lung zone subsegmental atelectasis are noted. No additional parenchymal consolidation. No definite pleural effusion. No perceptible pneumothorax.4. No acute osseous abnormality.[id number] ReportsLNDiagnostic ReportsTXTAVAvailable for patient [id number] ReportsLNSaint [facility]2021-05-03T13:03:00 2020-08-25 17:20:00 [id number]:20:00EXAM: XR CHEST 2 [facility] VIEWSDATE: 08/25/2020 17:18 CDT C enter INDICATION: - infectious evalCOMPARISON: Chest radiograph 08/20/2020UT SECTION: ERTECHNIQUE: PA and lateral chest radiographs.FINDINGS:Lines, tubes and hardware: None.Lungs and pleura: Slightly decreased lung volumes results in central vascular crowding and faint bibasilar subsegmental atelectasis. No pneumothorax. No pleural effusion. No airspace opacities.Heart and mediastinum: The heart size is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
[2023-03-27] MEDS ORDERED: METOPROLOL TAR 50 MG TAB PO SCH (20:00)
[2023-03-27] MEDS ORDERED: MELATONIN 3 MG TABLET PO PRN (20:26)
[2023-03-27] MEDS: DOCUSATE NA 100 MG CAP PO SCH (21:11)
[2023-03-27] MEDS: CLOBAZAM 10 MG PO SCH (21:11)
[2023-03-27] MEDS: GABAPENTIN 100 MG CAP PO SCH (21:11)
[2023-03-27] MEDS: HYDROCODONE/APAP 10/325 TAB PO PRN (21:27)
[2023-03-28 00:39] VITALS: BMI 23.5
[2023-03-28] MEDS: CLOBAZAM 10 MG PO SCH ×2 (07:30→20:13)
[2023-03-28] MEDS: GABAPENTIN 100 MG CAP PO SCH ×3 (07:30→20:01)
[2023-03-28] MEDS: RITALIN 20 MG PO SCH ×2 (07:30→13:34)
[2023-03-28] MEDS: ENOXAPARIN 40 MG/0.4 ML SQ SCH (07:30)
[2023-03-28] MEDS ORDERED: RITALIN 20 MG PO SCH (08:00)
[2023-03-28] MEDS: DOCUSATE NA 100 MG CAP PO SCH ×2 (08:13→20:01)
[2023-03-28] MEDS: HYDROCODONE/APAP 10/325 TAB PO PRN ×2 (08:13→14:34)
[2023-03-28 08:16] LABS: Hematocrit 33.2 % (36.0-45.0); Lymphocytes % 21.6 % (15.3-44.8); MCV 91.5 fL (80-100); MPV 7.8 fL (7.6-11.3); Platelets 258 thou/uL (152-406); RBC Red Blood Cell Count 3.62 M/uL (3.86-4.86)
[2023-03-28 08:27] LABS: Magnesium 2.2 mg/dL (1.6-2.4); Potassium 4.1 mEq/L (3.5-5.1); Prealbumin 17.9 mg/dL (20-40)
--- NOTE | 2023-03-28 13:12 | P.RH.PN ---
Estimated Length of Stay: 12 Expected Discharge Date: 04/08/23 Discharge Disposition Plan: Home Family Support: Yes Vital Signs: Last Vital Signs Temp 97.8 F 03/28/23 06:50 Pulse 98 H 03/28/23 09:43 Resp 18 03/28/23 09:43 BP 111/58 L 03/28/23 09:43 Pulse Ox 99 03/28/23 09:43 Laboratory: Laboratory Last Values WBC 9.30 thou/uL (4.3-10.9) 03/28/23 07:03 RBC 3.62 M/uL (3.86-4.86) L 03/28/23 07:03 Hgb 11.3 g/dL (12.0-15.0) L 03/28/23 07:03 Hct 33.2 % (36.0-45.0) L 03/28/23 07:03 MCV 91.5 fL (80-100) 03/28/23 07:03 MCH 31.3 pg (27.0-35.0) 03/28/23 07:03 MCHC 34.2 g/dL (32.0-36.0) 03/28/23 07:03 RDW 14.0 % (12.1-15.2) 03/28/23 07:03 Plt Count 258 thou/uL (152-406) 03/28/23 07:03 MPV 7.8 fL (7.6-11.3) 03/28/23 07:03 Neutrophils % 69.1 % (41.7-73.7) 03/28/23 07:03 Lymphocytes % 21.6 % (15.3-44.8) 03/28/23 07:03 Monocytes % 7.9 % (3.3-12.3) 03/28/23 07:03 Eosinophils % 0.9 % (0-4.4) 03/28/23 07:03 Basophils % 0.5 % (0-1.3) 03/28/23 07:03 Absolute Neutrophils 6.4 K/uL (1.8-8.0) 03/28/23 07:03 Absolute Lymphocytes 2.0 K/uL (0.7-4.9) 03/28/23 07:03 Absolute Monocytes 0.7 K/uL (0.1-1.3) 03/28/23 07:03 Absolute Eosinophils 0.1 K/uL (0-0.5) 03/28/23 07:03 Absolute Basophils 0.0 K/uL (0-0.5) 03/28/23 07:03 Sodium 140 mEq/L (136-145) 03/28/23 07:03 Potassium 4.1 mEq/L (3.5-5.1) 03/28/23 07:03 Chloride 110 mEq/L (98-107) H 03/28/23 07:03 Carbon Dioxide 26 mEq/L (21-32) 03/28/23 07:03 Anion Gap 8.1 mEq/L (5.0-15.0) 03/28/23 07:03 BUN 22 mg/dL (7-18) H 03/28/23 07:03 Creatinine 0.61 mg/dL (0.55-1.02) 03/28/23 07:03 Est GFR (CKD-EPI) 104 ml/min (=/>90) 03/28/23 07:03 Glucose 106 mg/dL (74-106) 03/28/23 07:03 Calcium 9.0 mg/dL (8.5-10.1) 03/28/23 07:03 Magnesium 2.2 mg/dL (1.6-2.4) 03/28/23 07:03 Albumin 3.0 g/dL (3.4-5.0) L 03/28/23 07:03 Prealbumin 17.9 mg/dL (20-40) L 03/28/23 07:03 SARS-CoV-2 Rap RNA(RT-PCR) Negative (NEGATIVE) 03/27/23 20:00 Weight: 170 lb Wound Present: Yes Physician Update: Labs were reviewedj and are stable. Pain is controlled with multiple modalities. She has chronic [employer] tumor, s/p revision. SLUMKS 23, mild slurred speech with word finding difficulty. She has good mood. BIMS 14. RW 80' min assist. Wheelchair 50', min kaylynn transfers, dressing. Chronic right sided weakness makes it difficulty to use the right side. 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 Please see the Rehabilitation Signature page for all necessary signatures.
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
[2023-03-28] MEDS: ENSURE ENLIVE 237 ML CAN PO SCH (20:00)
[2023-03-29] MEDS: DOCUSATE NA 100 MG CAP PO SCH ×2 (07:44→19:34)
[2023-03-29] MEDS: CLOBAZAM 10 MG PO SCH ×2 (07:44→19:34)
[2023-03-29] MEDS: ENSURE ENLIVE 237 ML CAN PO SCH ×2 (07:44→19:34)
[2023-03-29] MEDS: GABAPENTIN 100 MG CAP PO SCH ×3 (07:44→19:34)
[2023-03-29] MEDS: ENOXAPARIN 40 MG/0.4 ML SQ SCH (07:44)
[2023-03-29] MEDS: RITALIN 20 MG PO SCH ×2 (07:45→13:03)
[2023-03-29 10:08] LABS: Renal Epithelial <5 /HPF (None Seen); Specific Gravity 1.018 (1.005-1.030); Urine Bacteria <20 /HPF (<20); Urine Bilirubin NEGATIVE (Negative); Urine Blood Negative (Negative); Urine Clarity Extremely Turbid (Clear); Urine Color Yellow (Yellow); Urine Glucose NEGATIVE (Negative); Urine Protein NEGATIVE (Negative); Urine RBC <5 /HPF (None Seen); Urine Urobilinogen Normal (Normal)
[2023-03-29] MEDS: HYDROCODONE/APAP 10/325 TAB PO PRN ×2 (11:53→19:35)
[2023-03-29] MEDS: CRANBERRY FRUIT EXTRACT 200 MG CAP PO SCH (19:34)
[2023-03-30] MEDS: ENOXAPARIN 40 MG/0.4 ML SQ SCH (07:48)
[2023-03-30] MEDS: ENSURE ENLIVE 237 ML CAN PO SCH ×2 (07:48→19:05)
[2023-03-30] MEDS: CRANBERRY FRUIT EXTRACT 200 MG CAP PO SCH ×2 (07:49→19:04)
[2023-03-30] MEDS: DOCUSATE NA 100 MG CAP PO SCH ×2 (07:49→19:04)
[2023-03-30] MEDS: GABAPENTIN 100 MG CAP PO SCH ×3 (07:49→19:04)
[2023-03-30] MEDS: RITALIN 20 MG PO SCH ×2 (07:50→13:57)
[2023-03-30] MEDS: CLOBAZAM 10 MG PO SCH ×2 (07:51→19:04)
[2023-03-30] MEDS: HYDROCODONE/APAP 10/325 TAB PO PRN (08:35)
[2023-03-31] MEDS: DOCUSATE NA 100 MG CAP PO SCH ×2 (08:11→20:28)
[2023-03-31] MEDS: GABAPENTIN 100 MG CAP PO SCH ×3 (08:11→20:28)
[2023-03-31] MEDS: CRANBERRY FRUIT EXTRACT 200 MG CAP PO SCH ×2 (08:11→20:28)
[2023-03-31] MEDS: ENOXAPARIN 40 MG/0.4 ML SQ SCH (08:11)
[2023-03-31] MEDS: CLOBAZAM 10 MG PO SCH ×2 (08:12→20:28)
[2023-03-31] MEDS: ENSURE ENLIVE 237 ML CAN PO SCH ×2 (08:13→20:28)
[2023-03-31] MEDS: RITALIN 20 MG PO SCH ×2 (08:13→14:11)
[2023-03-31] MEDS: HYDROCODONE/APAP 10/325 TAB PO PRN (09:06)
[2023-03-31] MEDS ORDERED: GABAPENTIN 100 MG CAP ONE (20:12)
[2023-03-31] MEDS: ROSUVASTATIN 10 MG TAB PO SCH (20:28)
--- NOTE | 2023-03-31 21:17 | PN ---
Date of Progress Note: 03/31/2023 Time Of Service: 1:00 p.m. Subjective: Ms. Garcia is ambulating around the unit, doing very well. She has no significant pain an d the pain is managed by multiple modalities. The pain is in the right hip and the femoral neck frac ture site and is managed again by topical pain patch along with a neuro modulator as well. Review of Systems: No fevers or chills. No nausea, vomiting. No significant myalgias, arthralgias, rash, headache, dontae ght change. No psychiatric issues. Laboratory Studies: White blood cell count 9.3, hemoglobin 11.3, platelets 258. Sodium 140, potassi um 4.1, chloride 110, carbon dioxide 26, BUN 22, creatinine 0.61, glucose 106, calcium 9.0. Magnesiu m 2.2. Prealbumin 17.9, albumin 3.0. Her urinalysis shows esterase of 500, white blood cells greate r than 50, nitrite 2+, extremely turbid. Her cultures did grow greater than 100,000 colony-forming u nits of 4+ gram-negative rods with sensitivities pending. Imaging Studies: No new imaging studies. Medications: Tylenol 650 every 4 hours as needed, [place] 10/325 every 6 hours as needed, Colace 100 m g twice daily, Lovenox 40 mg subcutaneously daily, gabapentin 100 mg 3 times daily, melatonin 3 mg at bedtime, Ensure Enlive 237 mL twice daily, Crestor 10 mg at bedtime. Physical Examination: Vital Signs: Blood pressure 115/56, pulse 88, respiratory rate 18, temperature 97.9, oxygen saturati on 96%. General: Ms. Garcia is ambulating. She is in the 2 wheeled walker with the therapist holding a gait b elt. Neuro: Her expressive aphasia is at baseline. She is able to communicate her pain level, which is n ot significant despite her ambulating and maintaining weightbearing status. Extremities: She has good hemostasis at her right femoral neck surgical site. She has no significan t an edema. No cyanosis or clubbing in the extremities. Current Functional Status: Today, with physical therapy she ambulated with minimal assistance and a rolling walker covering 80 feet twice in the morning. In the afternoon, she walked 160 feet with roll ing walker with minimum assistance. She completed 10 steps with contact guard assistance and bilater al handrails. She completed multiple [id number] transfers with contact guard assistance. With her occupational therapy, she demonstrated independent recall of her hip precautions. She completed 2 s ets of 5 wheelchair pushups for increased strength and functional transfers. She did use an assistiv e device for dressing sock aid. With her speech therapy, she demonstrated use of organizational thin curly skills through convergent naming skills with 90% accuracy and minimum assistance. Assessment: Ms. Garcia is a 58-year-old patient admitted to the inpatient rehabilitation unit with rig ht hip fracture status post surgical repair. She is making very good progress with physical and occu pational therapy. Her pain is well managed. Urinalysis suggests a urinary tract infection. Culture s and sensitivities are pending. There are 4+ gram-negative rods identified. Her additional comorbi dities include her chronic stroke with expressive aphasia and some persistent right weakness. She zimmerman s hypertension, tachycardia, postoperative anemia, dyslipidemia, and of course the right total hip ar throplasty after hip fracture. Plan: 1.She will continue with physical, occupational, and speech therapy for 3.5 hours, 5 of 7 days. 2.We will continue multiple modalities for managing pain including neuromodulator, narcotic, and tra nsdermal patch. Continue Colace for constipation. Continue Lovenox for DVT risk reduction. Continu e melatonin for insomnia. Continue Ensure Enlive for her malnutrition. Comorbidities That Continue To Impact Her Rehabilitation: She does have the chronic stroke with expr essive aphasia, but she is well adjusted and is thriving there. She does have the potential for urinary tract infection and as appropriate, we will start antibiotics, cranberry 4 mg twice daily and encourage hydration. LB/MODL Voice ID: [id number] Report ID: [id number]
[2023-04-01] MEDS: DOCUSATE NA 100 MG CAP PO SCH ×2 (07:15→20:10)
[2023-04-01] MEDS: CRANBERRY FRUIT EXTRACT 200 MG CAP PO SCH ×2 (07:15→20:09)
[2023-04-01] MEDS: ENSURE ENLIVE 237 ML CAN PO SCH ×2 (07:16→20:10)
[2023-04-01] MEDS: CLOBAZAM 10 MG PO SCH ×2 (07:16→20:09)
[2023-04-01] MEDS: RITALIN 20 MG PO SCH ×2 (07:17→13:12)
[2023-04-01] MEDS: HYDROCODONE/APAP 10/325 TAB PO PRN ×2 (07:36→13:10)
[2023-04-01] MEDS: ENOXAPARIN 40 MG/0.4 ML SQ SCH (08:15)
[2023-04-01] MEDS: GABAPENTIN 100 MG CAP PO SCH ×3 (08:42→20:09)
[2023-04-01] MEDS ORDERED: MAGNESIUM HYDROXIDE 8% 30 ML PO ONE (14:30)
--- NOTE | 2023-04-01 16:21 | RAD REPORT ---
EXAM DESCRIPTION: RAD - Abdomen 1 View (KUB) - 04/01/2023 4:07 pm CLINICAL HISTORY: Abdomen pain/constipation FINDINGS: A large amount stool is present throughout the colon. The bowel gas pattern is unremarkable. Small densities overlying left kidney may represent renal calculi or contents within bowel
[2023-04-01] MEDS ORDERED: BISACODYL 10 MG RECTAL SUPP PR PRN (18:06)
[2023-04-01] MEDS: ROSUVASTATIN 10 MG TAB PO SCH (20:10)
[2023-04-02] MEDS: HYDROCODONE/APAP 10/325 TAB PO PRN ×2 (07:50→13:23)
[2023-04-02] MEDS: RITALIN 20 MG PO SCH ×2 (07:51→13:27)
[2023-04-02] MEDS: ENOXAPARIN 40 MG/0.4 ML SQ SCH (07:51)
[2023-04-02] MEDS: CLOBAZAM 10 MG PO SCH ×2 (07:52→20:29)
[2023-04-02] MEDS: DOCUSATE NA 100 MG CAP PO SCH ×2 (07:52→20:31)
[2023-04-02] MEDS: ENSURE ENLIVE 237 ML CAN PO SCH ×2 (07:52→20:37)
[2023-04-02] MEDS: CRANBERRY FRUIT EXTRACT 200 MG CAP PO SCH ×2 (07:52→20:30)
[2023-04-02] MEDS: levoFLOXacin 500 MG TAB PO SCH (07:53)
[2023-04-02] MEDS: GABAPENTIN 100 MG CAP PO SCH ×3 (07:54→20:30)
[2023-04-02] MEDS: SILVER SULFADIAZINE 1% 50 GM TOP SCH (11:00)
--- NOTE | 2023-04-02 19:47 | PN ---
Date of Progress Note: 04/02/2023 Time Of Service: 12:30 p.m. Subjective: Ms. Garcia is doing well. She is standing in the walker in the room with the therapist ho lding her gait belt very gently. She has no new complaints. Pain in her right hip fracture site is doing well. She did have Santyl placed on the graft site which is 2 years old and she otherwise have no complaints. Review of Systems: No fevers, chills. No nausea, vomiting. No myalgias. No arthralgias. No rash. No psychiatric com plaints. Laboratory Studies: No new laboratory studies. X-ray Imaging: X-ray KUB was done yesterday to evaluate the possibility of small bowel obstruction. The patient had some issues with constipation, which is improved. The study showed a large amount o f stool present throughout the colon. Bowel gas pattern unremarkable. There were small densities ov erlying the left kidney, may represent renal calculi or contents within the bowel. Medications: Medications have been reviewed. She is continuing [place] 10/325 every 6 hours as needed , Tylenol 650 mg every 4 hours as needed, Dulcolax 10 mg per rectum for constipation, Colace 100 mg t wice daily, Lovenox 40 mg subcutaneously daily, gabapentin 100 mg 3 times daily, Levaquin 500 mg liz y for urinary tract infection, began yesterday with complete 5 days, melatonin 3 mg at night as neede d, Ensure Enlive 237 mL twice daily, Crestor 10 mg at bedtime, and Silvadene apply topically to the l ocal wound area at the donation site daily. Physical Examination: Vital Signs: Blood pressure 109/53, pulse 84, respiratory rate 16, temperature 98.1, oxygen saturati on 98%. General: Ms. Garcia is standing in the rolling walker. She is in no acute distress. HEENT: She appears normocephalic, atraumatic. Sclerae anicteric. Oropharynx is moist. Neck: Supple. Chest: Clear. Heart: Regular. Neuro: She has evidence of chronic injury to the brain with some paresis left side, doing very well with respect to that. She is maintaining weightbearing status of the right lower extremity. She is standing. No significant edema in the extremities. Good hemostasis at the surgical site. Progress Made With Physical And Occupational Therapy: Currently, she did multiple [id number]-nh-[id number] trans fers with standby assistance. She did a 4-stage balance training. In addition, she ambulated 500 fe et with standby assistance with weightbearing as tolerated. Completed stair management 15 steps with contact guard assistance and bilateral handrails. Self fills wheelchair 500 feet with contact guard assistance. With speech therapy, she used working memory for 4 units of information with 70% accura cy with moderate assistance, used inductive reasoning and problem-solving tasks with 100% accuracy an d minimal assistance. Word retrieval completed, open-ended questions with 100% accuracy and moderate assistance. With occupational therapy, standby assistance for 5 [id number] activities. Extra catherine e was needed to respond to questions. There was some slow processing noted. She is making very good progress overall with her physical, occupational, and speech therapy. Her go als of becoming modified independent with all of her transfers, her dressing upper body, her mobiliza tion 500 feet with modified independence, up and down 15 steps with modified independence, mobilizing a wheelchair 500 feet with modified independence, and performing cognitive function independently. Assessment: Ms. Garcia is a 58-year-old patient in the rehabilitation unit with right hip fracture, st atus post surgical repair. She does have urinary tract infection with sensitivities that include lev ofloxacin. The cultures did grow Klebsiella pneumonia. Sensitivity in addition to Levaquin, Bactrim , nitrofurantoin, Augmentin, ciprofloxacin, cefepime, and meropenem among other antibiotics. Additio nal comorbid of chronic stroke, expressive aphasia, right-sided weakness, hypertension, tachycardia, dyslipidemia. Plan: 1.Continue with physical, occupational, speech therapy for 3.5 hours, 5 to 7 days. 2.Continue with Lovenox for DVT prophylaxis. 3.Continue with neuromodulator, gabapentin. Judicious use of narcotics, topicals including transder mal for pain management. 4.Colace for constipation. 5.Ensure Enlive for malnutrition. 6.Melatonin for insomnia and she has Santyl for wound area. Comorbidities That Continue To Impact Rehabilitation: Her stroke with expressive aphasia makes it sl ightly difficult for a very quick and fast and accurate communication, but with some slow illness of communication, in terms of speed of ideas going across and letting her at times to process, she does very well. She does have also urinary tract infection. She is on antibiotics and cranberry pills an d she is hydrating well. MAURICE/KASSANDRA Voice ID: [id number] Report ID: [id number]
[2023-04-02] MEDS: ROSUVASTATIN 10 MG TAB PO SCH (20:29)
[2023-04-03 04:14] LABS: Absolute Lymphocytes (CBC) 1.7 K/uL (0.7-4.9); Hematocrit 32.6 % (36.0-45.0); MCV 92.3 fL (80-100); MPV 7.3 fL (7.6-11.3); Platelets 379 thou/uL (152-406); RBC Red Blood Cell Count 3.53 M/uL (3.86-4.86)
[2023-04-03 04:22] LABS: Albumin 2.6 g/dL (3.4-5.0); Magnesium 2.3 mg/dL (1.6-2.4); Prealbumin 16.5 mg/dL (20-40)
[2023-04-03] MEDS: HYDROCODONE/APAP 10/325 TAB PO PRN ×2 (08:20→14:03)
[2023-04-03] MEDS: ENOXAPARIN 40 MG/0.4 ML SQ SCH (08:36)
[2023-04-03] MEDS: SILVER SULFADIAZINE 1% 50 GM TOP SCH (08:36)
[2023-04-03] MEDS: RITALIN 20 MG PO SCH ×2 (08:36→14:04)
[2023-04-03] MEDS: CRANBERRY FRUIT EXTRACT 200 MG CAP PO SCH ×2 (08:37→20:26)
[2023-04-03] MEDS: DOCUSATE NA 100 MG CAP PO SCH ×2 (08:37→20:26)
[2023-04-03] MEDS: ENSURE ENLIVE 237 ML CAN PO SCH ×2 (08:37→20:26)
[2023-04-03] MEDS: levoFLOXacin 500 MG TAB PO SCH (08:37)
[2023-04-03] MEDS: CLOBAZAM 10 MG PO SCH ×2 (08:37→20:26)
[2023-04-03] MEDS: GABAPENTIN 100 MG CAP PO SCH ×3 (08:38→20:28)
[2023-04-03] MEDS: ROSUVASTATIN 10 MG TAB PO SCH (20:26)
--- NOTE | 2023-04-03 22:38 | PN ---
Date of Progress Note: 04/03/2023 Time Of Service: 12:30 p.m. Subjective: Ms. Garcia is in her room and doing therapy. She is very happy so far with her progress. She is able to mobilize with a rolling walker with her right hip fracture maintaining weightbearing status. She does have a stent placed on the graft site and is doing very well. Review of Systems: She denies any fevers, chills, nausea, vomiting, myalgias, arthralgias, any significant rash, weight change. No other positives. Laboratory Studies: White blood cell count 5.9, hemoglobin 10.8, platelets 379. Sodium 142, potassi um 4.0, chloride 109, carbon dioxide 29, BUN 24, creatinine 0.5, glucose 108, calcium 9.2. Magnesium 2.3. Prealbumin 16.5 and albumin is 2.6. Her cultures eventually grew Klebsiella pneumoniae and zimmerman s been treated for that and urine cultures. X-ray/imaging: No new x-rays or imaging. Medications: Her medications have been reviewed and remained unchanged. She is continuing the Levaq uin for urinary tract infection for . She has Crestor for dyslipidemia, the Silvadene for her graft site treatment, melatonin for insomnia, gabapentin for neuropathic pain, Lovenox for DVT pr ophylaxis, Colace for stool softener, [place] as needed for pain along with gabapentin. Physical Examination: Vital Signs: Blood pressure 104/53, pulse of 82, respiratory rate 16, temperature 98, oxygen saturat ion 96%. Weight 144 pounds, height 5 feet 5 inches. General: Ms. Garcia is standing in a rolling walker. She is in no significant distress. HEENT: She is normocephalic, atraumatic. Sclerae anicteric. She has a chronic left-sided issues fr om stroke. Skin: Her surgical site in her right hip shows good hemostasis. Neuro: She has no new deficits. Progress Made With Physical And Occupational Therapy: Today, Ms. Garcia was able to complete 20 steps on stairs independently with bilateral handrails. She did not require cuing, completed turning in be d independently, sit to supine without using handrails independently. She completed [id number]-sb-[id number] tra nsfer independently. It is noted, she may still requires some supervision to reduce the risk of fall ing. She is independent with bathing, upper and lower body dressing, and donning and doffing footwea r. With speech therapy, she improved her BIMS score from 14 to 15 and maintained SLUMS score of 23. She will benefit from additional speech therapy once she is discharged. Assessment: Ms. Garcia is a 58-year-old patient in the rehabilitation unit, status post surgical repai r of her right hip fracture. She has urinary tract infection and treated with Levaquin and _ Klebsiella pneumoniae. She has chronic strokes with expressive aphasia, right-sided weakness, hype rtension, tachycardia, dyslipidemia. Plan: 1.Continue with physical, occupational, and speech therapy for 3.5 hours, 5/7 days. 2.Continue DVT prophylaxis. 3.Continue all medications for comorbid conditions that are listed. Comorbidities That Continue To Impact The Rehabilitation: Due to the chronic issue of expressive aph carlos, she is a little bit slower and responding and comprehending speech, but she does very well give n enough time. Also, she does have issues of balance and incoordination and is safe when using a wal ker, which she should do at all times. She is continuing treatment for urinary tract infection, but that is not impacting negatively her rehabilitation. MAURICE/KASSANDRA Voice ID: [id number] Report ID: [id number]
[2023-04-04 07:03] VITALS: BP 100/52; TEMP 98.3
[2023-04-04] MEDS: levoFLOXacin 500 MG TAB PO SCH (07:57)
[2023-04-04] MEDS: DOCUSATE NA 100 MG CAP PO SCH (07:57)
[2023-04-04] MEDS: GABAPENTIN 100 MG CAP PO SCH (07:57)
[2023-04-04] MEDS: ENOXAPARIN 40 MG/0.4 ML SQ SCH (07:57)
[2023-04-04] MEDS: CRANBERRY FRUIT EXTRACT 200 MG CAP PO SCH (07:57)
[2023-04-04] MEDS: CLOBAZAM 10 MG PO SCH (08:34)
[2023-04-04] MEDS: RITALIN 20 MG PO SCH (08:36)
[2023-04-04] MEDS: ENSURE ENLIVE 237 ML CAN PO SCH (09:16)
[2023-04-04] MEDS: SILVER SULFADIAZINE 1% 50 GM TOP SCH (09:17)
[2023-04-04] MEDS ORDERED: HYDROCODONE/APAP 7.5/325 MG TAB PO PRN (09:49)
--- NOTE | 2023-04-04 13:13 | P.RH.PN ---
Estimated Length of Stay: 12 Expected Discharge Date: 04/04/23 Discharge Disposition Plan: Home Family Support: Yes [facility]it[facility] Goal: Mobility, Transfers, Self Care Vital Signs: Last Vital Signs Temp 98.3 F 04/04/23 07:01 Pulse 78 04/04/23 07:01 Resp 18 04/04/23 10:01 BP 100/52 L 04/04/23 07:01 Pulse Ox 94 04/04/23 10:01 Laboratory: Laboratory Last Values WBC 5.90 thou/uL (4.3-10.9) 04/03/23 03:13 RBC 3.53 M/uL (3.86-4.86) L 04/03/23 03:13 Hgb 10.8 g/dL (12.0-15.0) L 04/03/23 03:13 Hct 32.6 % (36.0-45.0) L 04/03/23 03:13 MCV 92.3 fL (80-100) 04/03/23 03:13 MCH 30.7 pg (27.0-35.0) 04/03/23 03:13 MCHC 33.2 g/dL (32.0-36.0) 04/03/23 03:13 RDW 14.0 % (12.1-15.2) 04/03/23 03:13 Plt Count 379 thou/uL (152-406) 04/03/23 03:13 MPV 7.3 fL (7.6-11.3) L 04/03/23 03:13 Neutrophils % 51.0 % (41.7-73.7) 04/03/23 03:13 Lymphocytes % 29.0 % (15.3-44.8) 04/03/23 03:13 Monocytes % 12.5 % (3.3-12.3) H 04/03/23 03:13 Eosinophils % 6.6 % (0-4.4) H 04/03/23 03:13 Basophils % 0.9 % (0-1.3) 04/03/23 03:13 Absolute Neutrophils 3.0 K/uL (1.8-8.0) 04/03/23 03:13 Absolute Lymphocytes 1.7 K/uL (0.7-4.9) 04/03/23 03:13 Absolute Monocytes 0.7 K/uL (0.1-1.3) 04/03/23 03:13 Absolute Eosinophils 0.4 K/uL (0-0.5) 04/03/23 03:13 Absolute Basophils 0.1 K/uL (0-0.5) 04/03/23 03:13 Sodium 142 mEq/L (136-145) 04/03/23 03:13 Potassium 4.0 mEq/L (3.5-5.1) 04/03/23 03:13 Chloride 109 mEq/L (98-107) H 04/03/23 03:13 Carbon Dioxide 29 mEq/L (21-32) 04/03/23 03:13 Anion Gap 8.0 mEq/L (5.0-15.0) 04/03/23 03:13 BUN 24 mg/dL (7-18) H 04/03/23 03:13 Creatinine 0.50 mg/dL (0.55-1.02) L 04/03/23 03:13 Est GFR (CKD-EPI) 109 ml/min (=/>90) 04/03/23 03:13 Glucose 108 mg/dL (74-106) H 04/03/23 03:13 Calcium 9.2 mg/dL (8.5-10.1) 04/03/23 03:13 Magnesium 2.3 mg/dL (1.6-2.4) 04/03/23 03:13 Albumin 2.6 g/dL (3.4-5.0) L 04/03/23 03:13 Prealbumin 16.5 mg/dL (20-40) L 04/03/23 03:13 Urine Color Yellow (Yellow) 03/29/23 09:20 Urine Clarity Extremely turbid (Clear) H 03/29/23 09:20 Urine pH 6.0 (5.0-7.0) 03/29/23 09:20 Ur Specific [place] 1.018 (1.005-1.030) 03/29/23 09:20 Glucose (UA)(Auto) Negative (Negative) 03/29/23 09:20 Urine Ketones Negative (Negative) 03/29/23 09:20 Urine Blood Negative (Negative) 03/29/23 09:20 Urine Nitrite 2+ (Negative) H 03/29/23 09:20 Urine Bilirubin Negative (Negative) 03/29/23 09:20 Urine Urobilinogen Normal (Normal) 03/29/23 09:20 Ur Leukocyte Esterase 500 Jonathon/uL (Negative) H 03/29/23 09:20 Urine RBC <5 /HPF (None Seen) 03/29/23 09:20 Urine WBC >50 /HPF (<5) H 03/29/23 09:20 Ur Squamous Epith Cells <5 /HPF (None Seen) 03/29/23 09:20 U Non-Squamous Epi Cells <5 /HPF (None Seen) 03/29/23 09:20 Ur Renal Epithelial Cell <5 /HPF (None Seen) 03/29/23 09:20 Urine Bacteria <20 /HPF (<20) 03/29/23 09:20 Urine Culture Reflexed Reflexed 03/29/23 09:20 Urine Total Protein Negative (Negative) 03/29/23 09:20 SARS-CoV-2 Rap RNA(RT-PCR) Negative (NEGATIVE) 03/27/23 20:00 Weight: 144 lb 4.8 oz Wound Present: Yes Closed Surgical Incision Present: Yes Negative Pressure Wound Therapy Present: No Physician Update: Labs reviewed and are stable with multiple pain medication modalities. Met all goals with PT, OP. Scored 22 on the SLUMS. Independent with bed mobility 500' with SBA, WC 500' with SBA. Did all ADLs independently. Summary: Patient's care plan and [employer] continuous churn goals have been reviewed and revised as necessary. Please see the Rehabilitation Signature page for all necessary signatures.
== END 2023-04-04 13:45 | disposition home health service (06) | DRG 560 ==
LOC: 5TH 15:50 → UNDOADMIN 18:45 → 5TH 18:45
PROVIDERS: ADMIT Psychiatry & Neurology Neurology with Special Qualifications in Child Neurology; ATTEND Psychiatry & Neurology Neurology with Special Qualifications in Child Neurology
DX: S72.001D Fracture of unspecified part of neck of right femur, subsequent encounter for closed fracture with routine healing (principal); E46 Unspecified protein-calorie malnutrition; N39.0 Urinary tract infection, site not specified; I69.351 Hemiplegia and hemiparesis following cerebral infarction affecting right dominant side; I10 Essential (primary) hypertension; R00.0 Tachycardia, unspecified; G89.18 Other acute postprocedural pain; D64.9 Anemia, unspecified; E78.5 Hyperlipidemia, unspecified; G47.00 Insomnia, unspecified; Z68.24 Body mass index [BMI] 24.0-24.9, adult; I69.320 Aphasia following cerebral infarction; B96.1 Klebsiella pneumoniae [K. pneumoniae] as the cause of diseases classified elsewhere; K59.00 Constipation, unspecified; Z11.52 Encounter for screening for COVID-19
CPT/HCPCS: 36415; 74018; 80048; 81001; 82040; 83735; 84134; 85025; 87077; 87086; 87088; 87186; 87635; 92507; 92523; 92610; 97110; 97112; 97116; 97129; 97163; 97165; 97530; 97542; J1650

== ENCOUNTER 2024-08-02 13:33 | Emergency (ER) | payer OTHER ==
[2024-08-02] MEDS ORDERED: TDAP (DIPHTH,PERTUSS(ACELL),TET VAC) 0.5 ML VIAL IMVAC ONE (13:48)
--- NOTE | 2024-08-02 14:21 | RAD REPORT ---
EXAM: CT brain without contrast HISTORY: TRAUMA COMPARISON: 01/31/2022 TECHNIQUE: Multiple contiguous axial images were obtained and a CT of the brain without contrast. Sag ittal and coronal reformats were performed. One or more of the following dose reduction techniques were used: Automated exposure control, adjust ment of the mA and/or kV according to patient size, and/or iterative reconstruction. FINDINGS: 4 mm hyperdensity along the right convexity noted suspicious for subdural blood. 10 mm hyperdensity is seen in superior anterior right frontal lobe. Extensive gliosis is seen left ce rebral hemisphere. Moderate diffuse brain atrophy. No midline shift. Significant demineralization of the anterior calvarium is seen with large craniectomy defect on the l eft . Small right frontal scalp hematoma. The visualized paranasal sinuses and mastoid air cells are essentially clear. IMPRESSION: 4 mm thick hyperdense extra-axial collection along the right convexity suspicious for acute subdural hematoma. In addition, there is hyperdense 10 mm lesion right medial frontal lobe anterior aspect which could represent a focal hematoma or brain mass. No midline shift is seen. There is significant demineralization of the anterior calvarium with large left craniectomy. EXAM: CT of the cervical spine without contrast HISTORY: Neck pain, injury TRAUMA TECHNIQUE: Multiple contiguous axial images were obtained in a CT of the cervical spine without contr ast. Sagittal and coronal reformats were performed. FINDINGS: The vertebral bodies demonstrate normal height and alignment. No evidence of acute fracture or subluxation.. Mild lower cervical spondylosis. No prevertebral soft tissue swelling is seen. The posterior facets are well aligned. Normal alignment of the skull base with the cervical spine is seen. The lung apices are unremarkable. IMPRESSION: No evidence of acute osseous abnormality of the cervical spine.
--- NOTE | 2024-08-02 14:22 | RAD REPORT ---
EXAMINATION: CT MAXILLOFACIAL WITHOUT CONTRAST CLINICAL INDICATION: TRAUMA TECHNIQUE: Axial images were obtained through the facial bones and orbits without intravenous contras t. Sagittal and coronal reconstructions were created from the data. One or more of the following dose reduction techniques were used: Automated exposure control, adjustment of the mA and/or kV accor ding to patient size, and/or iterative reconstruction. Unless otherwise specified, incidental findings do not require dedicated imaging follow-up. COMPARISON: No prior exam. FINDINGS: There is no evidence of acute facial bone fracture. Mild right periorbital soft tissue swelling in ri ght frontal scalp hematoma. Irregular demineralization of the calvarium is present with large left craniectomy. Please reference recent CT had report for intracranial findings of significance. Visualized paranasal sinuses and mastoids are clear. Mandible appears intact. IMPRESSION: No acute facial bone fracture.
--- NOTE | 2024-08-02 14:33 | EDPHYS ---
Physician Documentation [facility] Name: Deborah Garcia Age: 59 yrs Sex: Female : 1965 Arrival Date: 08/02/2024 Time: 13:33 Bed 17 Private MD: ED Physician Gavin Duque HPI: 08/02 13:49 This 59 yrs old Female presents to ER via EMS with complaints of Fall Injury. 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 Unknown loss of consciousness. Patient aphasic and cannot answer questions. ROS, history and physical limited secondary to aphasia and chronic brain injury.. Historical: - Allergies: 13:40 Unknown IV antibiotic; bp - PMHx: 13:40 Aphasia; Hypertension; Colitis; BRAIN TUMOR; R sided deficits; bp - Immunization history:: Adult Immunizations up to date. - Infectious Disease History:: Denies. - Social history:: Smoking status: Patient denies any tobacco usage or history of. ROS: 13:50 Unable to obtain ROS due to patient's speech is incomprehensible, patient's inability sp3 to understand questions, Exam: 13:50 Constitutional: This is a well developed, well nourished patient who is awake, alert, sp3 and in no acute distress. Eyes: Pupils equal round and reactive to light, extra-ocular motions intact. Lids and lashes normal. Conjunctiva and sclera are non-icteric and not injected. Cornea within normal limits. Periorbital areas with no swelling, redness, or edema. Neck: Trachea midline, no thyromegaly or masses palpated, and no cervical lymphadenopathy. Supple, full range of motion without nuchal rigidity, or vertebral point tenderness. No Meningismus. Chest/axilla: Normal chest wall appearance and motion. Nontender with no deformity. No lesions are appreciated. Cardiovascular: Regular rate and rhythm with a normal S1 and S2. No gallops, murmurs, or rubs. Normal PMI, no JVD. No pulse deficits. Respiratory: Lungs have equal breath sounds bilaterally, clear to auscultation and percussion. No rales, rhonchi or wheezes noted. No increased work of breathing, no retractions or nasal flaring. Abdomen/GI: Soft, non-tender, with normal bowel sounds. No distension or tympany. No guarding or rebound. No evidence of tenderness throughout. Back: No spinal tenderness. No costovertebral tenderness. Full range of motion. Skin: Warm, dry with normal turgor. Normal color with no rashes, no lesions, and no evidence of cellulitis. 13:50 Head/face: Patient has minor skin tear/abrasion to the superior right side chin just under the lower lip. No lip injury noted. Front incisor maxillary with small chip fracture with no dentin exposed. Patient currently in c-collar.. Vital Signs: 13:39 BP 135 / 70; Pulse 80; Resp 16; Temp 98; Pulse Ox 97% ; bp 14:50 BP 154 / 85; Pulse 79; Resp 16; Pulse Ox 99% ; bp 15:48 BP 147 / 80; Pulse 87; Resp 16; Pulse Ox 97% ; bp MDM: 13:36 Medical Screening Exam initiated sp3 13:51 Data reviewed: vital signs, nurses notes, radiologic studies. ED course: 59-year-old sp3 female with mechanical fall with right-sided facial injury. Will obtain CT scan of the head, C-spine and facial bones. Tetanus will be updated. Disposition probable discharge home. Wound care as needed.. 14:30 ED course: Patient with 4.4 mm subdural hemorrhage on the right side. Additional sp3 laboratory values ordered including coagulation profile. We will transfer her to [facility].. 08/02 14:25 Order name: Basic Metabolic Panel; Complete Time: 15:23 sp3 08/02 14:25 Order name: CBC with Diff; Complete Time: 15:23 sp3 08/02 14:25 Order name: PT-INR; Complete Time: 15:23 3 08/02 13:36 Order name: CT Head C Spine; Complete Time: 14:23 sp3 08/02 13:37 Order name: Facial Bones W/O Con CT; Complete Time: 14:23 sp3 08/02 13:37 Order name: Wound Care; Complete Time: 14:39 3 08/02 14:25 Order name: Cardiac monitoring; Complete Time: 14:50 sp3 08/02 14:25 Order name: IV Saline Lock; Complete Time: 14:50 sp3 08/02 14:25 Order name: Labs collected and sent; Complete Time: 14:39 sp3 08/02 14:25 Order name: O2 Sat Monitoring; Complete Time: 14:39 sp3 08/02 14:25 Order name: NPO; Complete Time: 14:39 sp3 Administered Medications: 14:04 Drug: Tetanus Toxoid,Adsorbed IM 0.5 ml IM once; Provide Vaccine Information Statement bp (VIS). {Cell Attendant: [employer]; Exp: Sun Nov 05 2026; Lot #: [id number]; Series: 1 of 1; Patient Consent: Obtained; Date/Time: ; Source Name: Deborah Garcia; Source Relationship: Self; Address Information: [address] [address]; ; Education: Provided; VIS Presented Date: ; VIS Publication: Tetanus/Diphtheria/Pertussis (Tdap/Td) VIS 05/21/2011 (historic)} Route: IM; Site: left deltoid; 14:06 Follow up: Response: No adverse reaction bp Disposition Summary: 08/02/24 14:33 Transfer Ordered Notes: Reason: Higher level of care sp3 Condition: Fair sp3 Problem: an acute exacerbation sp3 Symptoms: have worsened sp3 Transfer Location: [facility](08/02/24 15:08) sp3 Accepting Physician: [facility] neuro ICU(08/02/24 15:55) bp Diagnosis - 4 mm subdural hematoma right parietal region and 10 mm lesion frontal lobe sp3 suspicious for hematoma, mechanical fall Forms: - Medication Reconciliation Form sp3 - SBAR form sp3 Critical care time excluding procedures: 14:33 Critical care time: Bedside Care: 15 minutes, Consultation: 15 minutes. Total time: 30 sp3 minutes Signatures: Dispatcher [employer] Uriah Maharaj, RN RN Gavin Sethi MD MD sp3 Corrections: (The following items were deleted from the chart) 13:37 13:37 Facial Bones W/ [id number].[id number] ordered. EDMS EDMS 15:08 14:33 [facility] neuro ICU sp3 sp3 15:08 14:33 [facility] sp3 sp3 15:55 15:08 [facility] neuro ICU sp3 bp
--- NOTE | 2024-08-02 14:33 | ER ---
Nurse's Notes [facility] Name: Deborah Garcia Age: 59 yrs Sex: Female : 1965 Arrival Date: 08/02/2024 Time: 13:33 Bed 17 Private MD: Diagnosis: 4 mm subdural hematoma right parietal region and 10 mm lesion frontal lobe suspicious for hematoma, mechanical fall Presentation: 08/02 13:39 Chief complaint: EMS states: MECHANICAL FALL WITH WALKER ENTERING GARAGE. Coronavirus bp screen: At this time, the client does not indicate any symptoms associated with coronavirus-19. Ebola Screen: No symptoms or risks identified at this time. Initial Sepsis Screen: Does the patient meet any 2 criteria? No. Patient's initial sepsis screen is negative. Does the patient have a suspected source of infection? No. Patient's initial sepsis screen is negative. Risk Assessment: Do you want to hurt yourself or someone else? Patient reports no desire to harm self or others. Onset of symptoms was August 02, 2024 at 13:00. Care prior to arrival: Glucose check: 90. 13:39 Method Of Arrival: EMS: [facility] bp 13:39 Acuity: JULIO 3 bp Triage Assessment: 13:40 General: Appears in no apparent distress. Behavior is calm, cooperative. Pain: bp Complains of pain in face. EENT: No deficits noted. Neuro: Level of Consciousness is awake, obeys commands, Oriented to CHRONIC APHASIA 2/2 BRAIN CA. Cardiovascular: Rhythm is sinus rhythm. Respiratory: No deficits noted. GI: No signs and/or symptoms were reported involving the gastrointestinal system. : No signs and/or symptoms were reported regarding the genitourinary system. Derm: No deficits noted. Musculoskeletal: No deficits noted. Injury Description: Laceration sustained to chin. Historical: - Allergies: 13:40 Unknown IV antibiotic; bp - PMHx: 13:40 Aphasia; Hypertension; Colitis; BRAIN TUMOR; R sided deficits; bp Historical Immunization: - Administered Vaccines 14:04 Tetanus Toxoid,Adsorbed IM 0.5 ml bp Batch Tank Controller: [employer]ooT; Exp: Cecy Nov 05 2026; Lot #: [id number]; Series: 1 of 1; Patient Consent: Obtained; Date/Time: ; Source Name: Deborah Garcia; Source Relationship: Self; Address Information: [address] [address]; ; Education: Provided; VIS Presented Date: ; VIS Publication: Tetanus/Diphtheria/Pertussis (Tdap/Td) VIS 05/21/2011 (historic) - Immunization history:: Adult Immunizations up to date. - Infectious Disease History:: Denies. - Social history:: Smoking status: Patient denies any tobacco usage or history of. Screenin:49 [facility] ED Fall Risk Assessment (Adult) History of falling in the last 3 months, bp including since admission Yes- single mechanical fall (1 pt) Confusion or Disorientation No (0 pts) Intoxicated or Sedated No (0 pts) Impaired Gait Yes (1 pt) Mobility Assist Device Used Yes (1 pt) Altered Elimination No (0 pt) Score/Fall Risk Level 0 - 2 = Low Risk Oriented to surroundings. Abuse screen: Denies threats or abuse. Denies injuries from another. Nutritional screening: No deficits noted. Tuberculosis screening: No symptoms or risk factors identified. Assessment: 13:40 General: Appears in no apparent distress. comfortable, Behavior is calm, cooperative. bp 14:48 Reassessment: ADMIT INITIATED. bp 15:05 Reassessment: REPORT TO BABAR SUAREZ AT [facility] ER. bp 15:49 Reassessment: EMS AT B/S FOR TRANSPORT. bp Vital Signs: 13:39 BP 135 / 70; Pulse 80; Resp 16; Temp 98; Pulse Ox 97% ; bp 14:50 BP 154 / 85; Pulse 79; Resp 16; Pulse Ox 99% ; bp 15:48 BP 147 / 80; Pulse 87; Resp 16; Pulse Ox 97% ; bp ED Course: 13:36 Patient arrived in ED. sp3 13:36 Gavin Duque MD is Attending Physician. sp3 13:37 Uriah Ponce, RN is Primary Nurse. bp 13:40 Triage completed. bp 13:40 Arm band placed on. bp 13:50 CT Head C Spine In Process Unspecified. EDMS 13:50 Facial Bones W/O Con CT In Process Unspecified. EDMS 14:42 initiated transfer to [facility] ER by DR shelley, admin approval given by Chioma Ling bd 14:48 Initial lab(s) drawn, by me, sent to lab. Inserted saline lock: 22 gauge in right bp forearm, using aseptic technique. Blood collected. Flushed with 10 mL NS. 14:49 Patient has correct armband on for positive identification. bp 15:05 No provider procedures requiring assistance completed. Patient transferred, IV remains bp in place. Administered Medications: 14:04 Drug: Tetanus Toxoid,Adsorbed IM 0.5 ml IM once; Provide Vaccine Information Statement bp (VIS). {Batch Tank Controller: RooT; Exp: Sun Nov 05 2026; Lot #: [id number]; Series: ; Patient Consent: Obtained; Date/Time: ; Source Name: Deborah Garcia; Source Relationship: Self; Address Information: [address] [place] [address]; ; Education: Provided; VIS Presented Date: ; VIS Publication: Tetanus/Diphtheria/Pertussis (Tdap/Td) VIS 05/21/2011 (historic)} Route: IM; Site: left deltoid; 14:06 Follow up: Response: No adverse reaction bp Medication: 15:06 VIS not applicable for this client. bp Outcome: 14:33 ER care complete, transfer ordered by sp3 15:05 Transferred by ground EMS to [facility], Transfer form completed. bp 15:05 Condition: stable 15:05 Instructed on the need for transfer, 15:55 Patient left the ED. bp Signatures: Dispatcher [employer] EDMS Nataly Sanchez Brian, ERICK RN Gavin Sethi MD MD sp3
[2024-08-02 15:13] LABS: PT Prothrombin Time 11.6 SECONDS (10-13.0); Protime INR 1.02
[2024-08-02 15:14] LABS: Absolute Basophils 0.1 K/uL (0-0.5); Absolute Lymphocytes (CBC) 1.1 K/uL (0.7-4.9); Absolute Monocytes 0.4 K/uL (0.1-1.3); Absolute Neutrophil 4.4 K/uL (1.8-8.0); Basophils % 0.9 % (0-1.3); Eosinophils % 0.6 % (0-4.4); Hematocrit 44.7 % (36.0-45.0); Hemoglobin 15.3 g/dL (12.0-15.0); MCHC 34.1 g/dL (32.0-36.0); MCV 90.8 fL (80-100); Monocytes % 6.4 % (3.3-12.3); Neutrophils % 74.1 % (41.7-73.7); Nucleated Red Blood Cells % 0.1 % (0-0); Platelets 220 thou/uL (152-406); RBC Red Blood Cell Count 4.93 M/uL (3.86-4.86); Red Cell Distribution Width 13.3 % (12.1-15.2)
[2024-08-02 16:31] VITALS: TEMP 98
[2024-08-02 16:43] VITALS: BP 147/80; O2SAT 97
== END 2024-08-02 15:55 | disposition short-term general hospital (02) ==
LOC: ER 13:33
DX: S06.5X0A Traumatic subdural hemorrhage without loss of consciousness, initial encounter (principal); G93.89 Other specified disorders of brain; W18.30XA Fall on same level, unspecified, initial encounter; Z23 Encounter for immunization; R47.01 Aphasia; I10 Essential (primary) hypertension
CPT/HCPCS: 36415; 70450; 70486; 72125; 76377; 80048; 85025; 85610; 90471; 90715; 99285

== ENCOUNTER 2025-01-19 08:02 | Day surgery (SDC) | payer OTHER ==
[2025-01-18 08:58] LABS: Hematocrit 44.4 % (36.0-45.0); Hemoglobin 15.0 g/dL (12.0-15.0); RBC Red Blood Cell Count 4.86 M/uL (3.86-4.86); White Blood Count 4.50 thou/uL (4.3-10.9)
[2025-01-18 08:59] LABS: Absolute Lymphocytes (CBC) 1.6 K/uL (0.7-4.9); MCH 30.8 pg (27.0-35.0); MCHC 33.8 g/dL (32.0-36.0); MCV 91.3 fL (80-100); MPV 7.8 fL (7.6-11.3); Nucleated RBC Absolute Count 0.0 (0-0); Nucleated Red Blood Cells % 0.1 % (0-0)
[2025-01-18 09:16] LABS: Anion Gap 4.6 mEq/L (5.0-15.0); BUN Blood Urea Nitrogen 23.0 mg/dL (7-18); Glucose Level 109.0 mg/dL (74-106); Potassium 3.6 mEq/L (3.5-5.1)
[2025-01-19] MEDS ORDERED: LIDOCAINE 1% MPF 5 ML VIAL ONE (09:38)
[2025-01-19] MEDS ORDERED: ONDANSETRON 4 MG/2 ML VIAL ONE (09:38)
[2025-01-19] MEDS ORDERED: FENTANYL CITR 100 MCG/2 ML ONE (09:38)
[2025-01-19] MEDS ORDERED: MIDAZOLAM HCL 2 MG/2 ML INJ ONE (09:39)
[2025-01-19] MEDS: Ringers Lactate 1,000 ML IV ONE (09:51)
[2025-01-19] MEDS: CIPROFLOXACIN 400mg IV 400 MG/200 ML BAG IV ONE (10:05)
[2025-01-19] MEDS ORDERED: EPHEDRINE SULF 50 MG/ML VIAL ONE (10:11)
[2025-01-19] MEDS: MINERAL OIL, LITE 10 ML VIAL ONE (10:33)
[2025-01-19] MEDS ORDERED: Phenylephrine HCl 10 MG/ML 1 ML VIAL ONE (10:51)
--- NOTE | 2025-01-19 11:31 | P.BOP ---
Preoperative diagnosis: scalp non healing wound, s/p glioblastoma excision Postoperative diagnosis: same Primary procedure: 1. Split thickness skin graft to scalp [id number] Secondary procedure: 2. placement of wound VAC Estimated blood loss: <10cc Specimen: none Findings: upper back donor site Anesthesia: General Complications: None Transferred to: Recovery Room Condition: Good
[2025-01-19 12:43] VITALS: BP 110/61; TEMP 97.7; O2SAT 99
[2025-01-19] MEDS: TRAMADOL 37.5mg/APAP 325mg PER TAB ONE (13:00)
--- NOTE | 2025-01-22 19:03 | OP ---
Surgeon: Gio Gray MD Preoperative Diagnoses: Scalp nonhealing wound, status post brain cancer, multiple flaps in the past . Postoperative Diagnoses: Scalp nonhealing wound, status post brain cancer, multiple flaps in the pas t with history of osteomyelitis. Procedure: Split-thickness skin graft to scalp, 6 x 3 x 1 cm. Placement of wound VAC. Estimated Blood Loss: Less than 10 cc. Findings: Upper back donor site. Anesthesia: General plus local. Indications: This is the case of a female with a history of consequence of brain tumors. She has been doing great. Multiple incisions on the scalp, multiple grafts over the last few years. There are some areas exposed with history of osteomyelitis. She received a hyperbaric treatment, r eceived a skin substitute and since the wound care for the last several months, now we are at the sta ge of bringing a split-thickness skin graft to that region after the area was allowed to granulate. The benefits, alternatives, and risks of a split-thickness skin graft fully explained, which include, but not limited to infection, bleeding, damage to adjacent structures, anesthesia complication, nonh ealing wound, failure of the graft, [place], and even . She also understands this may not relieve sy mptoms, she might need more than one surgical intervention. She understands we will be using skin fr om the donor site on the back as a preference at this time. So, the nonhealing wound in that area at risk also is explained. After the end, the plan was to place a wound VAC that will help us with con trol of fluid in that region also to make sure that it does not get dislodged. She understood. [facility] to allow me to have nurses to assist us on the placement of this wound VAC since they know them very well. Description Of Procedure: The patient was brought to the operating room, placed in supine position. Anesthesia was done without complication. Time-out was called. The patient was placed in lateral d ecubitus position with proper protection. We prepped and draped the scalp and the back area in usual sterile fashion. At that moment, we proceeded then to carefully prep the back area and then selecte d by size the proper place for the dermatome. The area to cover is as described above on the sides. After that, we proceeded to remove a strip of the skin and the setup was about 15,000 of an inch. O nce we the skin with a mesh with a knife and then placed on the areas to cover, secured in place with a Vicryl. On top of that, we proceeded then to put a wound VAC under aseptic condition a nd covered with sterile dressings. The donor site was also covered with sterile dressings. The george ent tolerated the procedure well. The sponge count and instrument counts were correct. The patient was sent to Recovery in stable condition. THALIA/KASSANDRA Voice ID: [id number] Report ID: [id number]
--- NOTE | 2025-01-22 19:08 | DS ---
Date of Discharge: 01/19/2025 Diagnosis: Scalp nonhealing wound. Procedures: Split-thickness skin graft to scalp, 6 x 3 x 1 cm. Placement of a wound VAC. Condition: Stable. Disposition: Home. Activity: As tolerated. No heavy lifting. Discharge Instructions: Follow up in my office in 1 week. Call for appointment at [phone]. We are going to keep the wound VAC if possible for the entire week, if not at least for 3 days. She is catalina cheema to contact us at the [facility] if there are any problems with the machine itself. THALIA/KASSANDRA Voice ID: [id number] Report ID: [id number]
== END 2025-01-19 13:36 | disposition home or self-care (01) ==
LOC: OR 08:02
PROVIDERS: ATTEND Surgery
PROC: 0HB6XZZ Excision of Back Skin, External Approach (ICD-10-PCS; 2025-01-19)
PROC: 0HR0X74 Replacement of Scalp Skin with Autologous Tissue Substitute, Partial Thickness, External Approach (ICD-10-PCS; principal; 2025-01-19 10:30)
DX: T81.89XA Other complications of procedures, not elsewhere classified, initial encounter (principal); S01.00XA Unspecified open wound of scalp, initial encounter; L59.8 Other specified disorders of the skin and subcutaneous tissue related to radiation; L98.499 Non-pressure chronic ulcer of skin of other sites with unspecified severity
CPT/HCPCS: 93005; 85025; 80048; 36415; 15120; J2704; J2003; J2371; J3010; J2405; J0744; J7120; J2250